=== PATIENT | female | born 1960 | race African-American/Black ===

== ENCOUNTER 2020-06-30 10:39 | Outpatient (REF) | payer MEDICARE, OTHER, SELFPAY ==
--- NOTE | ~2020-06-30 | MM_ITS ---
EXAMINATION: MM SCREENING DIGITAL BREAST TOMOSYNTHESIS, BILATERAL CLINICAL INFORMATION: Screening. Asymptomatic. The lifetime risk of breast cancer based on the Tyrer-Cuzick Model is 11%. COMPARISON: Mammography: 07/02/2018, 04/07/2017 TECHNIQUE: Digital breast tomosynthesis is performed in both the craniocaudal and mediolateral oblique views along with computer-aided detection (CAD). Synthesized 2D images are generated from the tomosynthesis. FINDINGS: There are scattered areas of fibroglandular density (ACR BI-RADS breast composition Category b). There is fine fibronodular parenchymal pattern. No interval mass or architectural abnormality or developing density in either breast. There are scattered bilateral calcifications overall increased since 2019 on both sides. There are new loosely grouped calcifications on the right 2:30 o'clock position mid depth. Patient will be recalled for additional imaging. MM/MM tomosynthesis screening BI IMPRESSION: 1. Right: New loosely grouped calcifications mid upper inner right breast. 2. Left: No mammographic evidence of malignancy. ASSESSMENT: BI-RADS 0: Incomplete - Need Additional Imaging Evaluation RECOMMENDATION: 1. Additional views of the right breast (magnification CC, magnification LM). 2. Radiology department staff will contact the patient for additional imaging. This patient's information was entered into a reminder system with a target due date for their next mammogram.
== END 2020-06-30 10:40 | disposition home or self-care (01) ==
LOC: HO.MAMMO 10:39
PROVIDERS: Visit Provider Family Medicine
DX: Z12.31 Encounter for screening mammogram for malignant neoplasm of breast (principal)
CPT/HCPCS: 77063; 77067

== ENCOUNTER 2020-07-05 09:27 | Outpatient (REF) | payer MEDICARE, OTHER, SELFPAY ==
--- NOTE | ~2020-07-05 | MM_ITS ---
EXAMINATION: MM DIAGNOSTIC DIGITAL MAMMOGRAPHY, RIGHT CLINICAL INFORMATION: Recall from screening for new loosely grouped calcifications right 2:30 o'clock position mid depth. COMPARISON: Mammography: 06/30/2020, 07/02/2018, 04/07/2017 TECHNIQUE: Digital mammography is performed in the following views: Magnification CC x2, magnification LM. FINDINGS: There are scattered areas of fibroglandular density (ACR BI-RADS breast composition Category b). The loosely grouped calcifications mid 2:30 o'clock position are relatively coarse and similar to other grouped coarse calcifications in the bilateral outer quadrants. This most likely represents area fibroadenomatous change. Management plan is for short interval follow-up imaging in 6 months. Results are discussed with the patient at time of visit. MM/MM added views RT IMPRESSION: The loosely grouped calcifications mid inner right breast are probably benign, suspected fibroadenomatous change. ASSESSMENT: BI-RADS 3: Probably Benign RECOMMENDATION: Diagnostic right mammography in 6 months. This patient's information was entered into a reminder system with a target due date for their next mammogram.
== END 2020-07-05 09:28 | disposition home or self-care (01) ==
LOC: HO.MAMMO 09:27
PROVIDERS: Visit Provider Family Medicine
DX: R92.1 Mammographic calcification found on diagnostic imaging of breast (principal)
CPT/HCPCS: 77065

== ENCOUNTER → 2020-10-04 10:06 | Outpatient (BNVA) | payer MEDICARE, OTHER, SELFPAY | PROVIDERS: PCP Family Medicine; Referring Provider Family Medicine; Visit Provider Internal Medicine Cardiovascular Disease | DX: Z01.810 Encounter for preprocedural cardiovascular examination (principal); I11.0 Hypertensive heart disease with heart failure; I50.30 Unspecified diastolic (congestive) heart failure | CPT/HCPCS: 93005; 99212 ==

== ENCOUNTER → 2020-11-02 10:05 | Outpatient (REF) | payer MEDICARE, OTHER, SELFPAY ==
--- NOTE | ~2020-11-02 | NM_ITS ---
Myocardial perfusion study Indication: Preoperative cardiovascular exam to evaluate for myocardial ischemia Technique: The patient was brought in for a Lexiscan perfusion study on 11/02/2020. Patient performed low-level exercise and was injected 0.4 mg of Lexiscan intravenously. Within a minute of injection, 30 mCi of sestamibi was given intravenously. Images were obtained using the SPECT gamma camera interlaced with the gating device. Images were obtained in supine position. Resting perfusion study was performed on 11/03/2020. Patient was administered 30 mCi of sestamibi intravenously at rest. Images were then obtained in supine position. Images obtained with and without CT attenuation. Total DLP 113 mGy-cm. Images were processed with the software and compared side to side in short axis, horizontal long axis and vertical long axis views. Findings: The stress perfusion study showed nonattenuated images show minimal thinning of the inferior wall and mildly reduced uptake in the apex of the LV myocardium. Remainder of the LV myocardium is normally perfused. Attenuation corrected images show mildly reduced uptake in the distal anterior and moderately reduced uptake in the apex of the LV myocardium. Remainder of the LV myocardium normally perfused.. The gated study shows normal LV systolic function with calculated LVEF of 52%. LV cavity is mildly dilated size. The gated study shows normal systolic wall thickening and contraction of segments. Resting study shows nontender images show improved uptake in the apex of the LV myocardium. Attenuation uptake in the distal anterior and apex of the LV myocardium.. Gating at rest reveals normal systolic wall motion with ejection fraction at 59%. The findings are consistent with evidence of apical and distal anterior ischemia in the LAD territory. NM/NM isreal perf SPECT rest & str Impression: 1. Myocardial perfusion imaging study shows distal anterior and apical ischemia 2. Gated LVEF is 52% with stress and 59% with rest 3. Transient ischemic dilatation present EKG is nondiagnostic for ischemia
--- NOTE | 2020-11-02 10:08 | CA_ITS ---
Acquisition Time: 2020-11-02 10:13:54 Total Exercise Time: 00:02:00 Test Indications: PREOP Medications: SEE CHART Protocol: LEXISCAN Max HR: 081 BPM 50% of Pred: 160 BPM Max BP: 158/066 mmHG Max Work Load: 1.0 METS Pharmacological stress test using Lexiscan while sitting and kicking her feet. Pt tolerated well, denies any anginal sx. EKG with occ. PAC's, non-diagnostic for ischemia. Nuclear images to follow. Normotensive response to test. Test reviewed with Dr. Aguilera. Referred By: Georges Aguilera Overread By: Rosy Nair NP
== END ==
LOC: HO.CARD 10:05
PROVIDERS: Visit Provider Internal Medicine Cardiovascular Disease
DX: Z01.810 Encounter for preprocedural cardiovascular examination (principal)
CPT/HCPCS: 78452; 93017; A9500; J0280; J2785

== ENCOUNTER → 2020-11-09 12:47 | Outpatient (BNVA) | payer MEDICARE, OTHER, SELFPAY | PROVIDERS: PCP Family Medicine; Visit Provider Internal Medicine Cardiovascular Disease | DX: Z01.810 Encounter for preprocedural cardiovascular examination (principal); I50.30 Unspecified diastolic (congestive) heart failure | CPT/HCPCS: Q3014 ==

== ENCOUNTER 2020-11-23 10:47 | Outpatient (REF) | payer MEDICARE, OTHER, SELFPAY ==
[2020-11-23 11:51] LABS: Hematocrit 29.4 % (37-47); Hemoglobin 8.9 g/dl (12.0-16.0); Mean Corpuscular HGB Conc 30.3 g/dl (31.0-35.0); Mean Corpuscular Hemoglobin 28.7 pg (27.0-33.0); Mean Corpuscular Volume 94.8 fL (80-98); Mean Platelet Volume 10.6 fL (9.4-12.3); Platelet Count 308 X10*3/uL (160-400); Red Cell Distribution Width 15.8 % (11.0-16.0); White Blood Count 9.3 X10*3/uL (4.8-10.8)
[2020-11-23 11:53] LABS: Prothrombin Time 11.3 SEC (9.9-13.0)
[2020-11-23 12:18] LABS: B Type Natriuretic Peptide 327 pg/mL (<100)
[2020-11-23 12:50] LABS: Anion Gap 15 (12-20); Blood Urea Nitrogen 35 mg/dL (9-16); Calcium 8.8 mg/dL (8.4-10.2); Carbon Dioxide 28 mmol/L (22-29); Chloride 103 mmol/L (96-108); Estimated Glomerular Filt Rate 5; Glucose Random 150 mg/dL (60-115); Potassium 3.7 mmol/L (3.3-5.1); Sodium 142 mmol/L (135-145)
== END 2020-11-23 10:48 | disposition home or self-care (01) ==
LOC: HO.LAB 10:47
PROVIDERS: Nurse Practitioner Family; PCP Family Medicine; Visit Provider Internal Medicine Cardiovascular Disease
DX: Z01.810 Encounter for preprocedural cardiovascular examination (principal); I10 Essential (primary) hypertension; I50.30 Unspecified diastolic (congestive) heart failure
CPT/HCPCS: 36415; 80048; 83880; 85027; 85610

== ENCOUNTER → 2020-12-06 10:34 | Outpatient (REF) | payer MEDICARE, OTHER, SELFPAY ==
--- NOTE | 2020-12-06 10:37 | CA_ITS ---
Transthoracic Echocardiogram Patient (Last, First, Middle): Alix Sharp B Gender: Female Date of : 1960 Age: 60 Procedure Date: 12/06/2020 Procedure Type: Transthoracic Echocardiogram Location: OP Height: 170.18 cm Weight: 80.74 kg BSA: 1.92 m2 Heart Rate: bpm BP: 116 / 60 mmHg Product Marketing Manager: Referring MD: Georges Aguilera MD Symptoms: I50.30 - Unspecified diastolic (congestive) heart failure Study Quality: Good ECG Rhythm: Sinus Conclusions: - The left ventricular systolic function is normal. The calculated ejection fraction is 61% by biplane method. - Evidence suggests grade II (moderate) diastolic dysfunction. - Mildly increased right ventricular cavity size. - The left atrium is moderately dilated. - There is moderate posterior mitral annular calcification. Findings Left Ventricle Normal left ventricular cavity size. There is mildly increased left ventricular wall thickness. The left ventricular systolic function is normal. The calculated ejection fraction is 61% by biplane method. There is no evidence of regional wall motion abnormalities. E/E prime ratio is >15, consistent with elevated filling pressures. Evidence suggests grade II (moderate) diastolic dysfunction. Right Ventricle Mildly increased right ventricular cavity size. There is normal right ventricular systolic function. Atria The left atrium is moderately dilated. The right atrium is normal in size. Aortic Valve There is a normal trileaflet aortic valve. There is no aortic valve stenosis. The mean gradient is 9 mmHg. There is no aortic valve regurgitation. Mitral Valve There is moderate posterior mitral annular calcification. There is trace mitral valve regurgitation. There is no mitral valve stenosis. Pulmonic Valve The pulmonic valve was not well visualized. Tricuspid Valve Normal tricuspid valve structure. There is trace tricuspid valve regurgitation. The pulmonary artery systolic pressure is normal. Great Vessels The aortic annulus, sinuses of valsalva, and asc aorta are normal in size. Venous The inferior vena cava is normal in size and collapses greater than 50% with inspiration. Pericardium/Pleural There is no evidence of pericardial effusion. Prior Study Comparison Changes noted compared to prior study dated: 12/15/2019. RVSP normal. Possible underestimation. Measurements 2D Linear Measurements IVSd: 1.09 0.6-0.9/0.6-1.0 cm LVIDd: 5.34 3.9-5.3/4.2-5.9 cm LVIDd Index: 2.78 2.4-3.2/2.2-3.1 cm/m2 LVIDs: 3.22 2.0-3.6 cm LVPWd: 1.05 0.7-1.1 cm Ao Root: 3.10 2.1-3.5 cm LA Diam: 4.40 2.7-3.8/3.0-4.0 cm LAIDs Index: 2.29 1.5-2.3 cm/m2 LV Mass: 276.89 67-162/88-224 g LV Mass Index: 144.21 43-95/49-115 g/m2 LVOT Diam: 2.00 3.0+(-)1.3 cm 2D Systolic Function EF 4C: 63.70 >55% EF 2C: 58.60 >55% EF BiP: 61.30 >55% Mitral Valve MV VTI: 0.67 MV Pk [place]: 1.52 MV Mn [place]: 0.75 MV Pk Grad: 9.00 MV Mn Grad: 3.00 MV Pk E: 1.36 MV PK A: 1.02 MV Decel Time: 441.00 E/A: 1.30 E'Lateral: 7.94 E'Medial: 6.64 E/E' Med: 20.50 E/E' Lat: 17.10 PHT: 129.00 MVA PHT: 1.71 MVA Continuity: 1.70 Decel [place]: 3.09 Aortic Valve AoV Pk [place]: 2.27 AoV Mn [place]: 1.40 AoV VTI: 0.60 AoV Pk Grad: 21.00 Aov Mn Grad: 9.00 BOB Cont.VTI: 1.88 LVOT LVOT Pk [place]: 1.24 LVOT Mn [place]: 0.84 LVOT VTI: 0.36 LVOT Pk Grad: 6.00 LVOT Mn Grad: 3.00 LVOT Diam: 2.00 LVOT Area: 3.14 Diastolic Function MV Pk E: 1.36 MV Pk A: 1.02 E/A: 1.30 E'Medial: 6.64 E/E' Med: 20.50 E' Laterial: 7.94 E/E' Lat: 17.10 Right Ventricle TAPSE (mm): 29.00 TVS' [place]: 17.00 Tricuspid Valve TR Pk [place]: 2.75 TR Pk Grad: 30.00 Great Vessels Aorta Ao Root-2D: 3.10 2.0-3.7 cm Ao Asc: 2.80 2.1-3.4 cm Pulmonary Valve PV Pk [place]: 1.32 Peak PV Grad: 7.00 Updated in Other Vendor System with Status of Final Cornell Ramirez MD electronically signed on 12/07/2020 1:22:06 PM with status of Final
== END ==
LOC: HO.CARD 10:34
PROVIDERS: Visit Provider Internal Medicine Cardiovascular Disease
DX: I50.30 Unspecified diastolic (congestive) heart failure (principal)
CPT/HCPCS: 93306

== ENCOUNTER → 2020-12-12 15:23 | Outpatient (BNVA) | payer MEDICARE, OTHER, SELFPAY | PROVIDERS: PCP Family Medicine; Visit Provider Nurse Practitioner Family | DX: Z01.810 Encounter for preprocedural cardiovascular examination (principal); I13.2 Hypertensive heart and chronic kidney disease with heart failure and with stage 5 chronic kidney disease, or end stage renal disease; I50.30 Unspecified diastolic (congestive) heart failure; N18.6 End stage renal disease; Z79.899 Other long term (current) drug therapy; Z99.2 Dependence on renal dialysis | CPT/HCPCS: 99212 ==

== ENCOUNTER 2021-01-08 08:46 | Outpatient (REF) | payer MEDICARE, OTHER, SELFPAY ==
--- NOTE | ~2021-01-08 | MM_ITS ---
EXAMINATION: MM DIAGNOSTIC DIGITAL BREAST TOMOSYNTHESIS, RIGHT CLINICAL INFORMATION: Six-month follow-up calcifications The lifetime risk of breast cancer based on the Tyrer-Cuzick Model is 13.4%. COMPARISON: Mammography: July 05, 2020 and studies dating back to February 25, 2012 TECHNIQUE: Digital breast tomosynthesis is performed in both the craniocaudal and mediolateral oblique views along with computer-aided detection (CAD). Synthesized 2D images are generated from the tomosynthesis. Additional spot magnification views of the right breast in craniocaudal and 90 degree mediolateral views performed. FINDINGS: There are scattered areas of fibroglandular density (ACR BI-RADS breast composition Category b). There are no new significant masses, abnormal calcifications, or other abnormalities. There is stability to calcification seen within the superior medial aspect of the right breast. Recommend 6 month bilateral mammography with spot magnification views of the right breast.. Results are provided to the patient at time of visit by the technologist. MM/MM tomosynthesis diagnostic RT IMPRESSION: There are no significant changes from prior study. ASSESSMENT: BI-RADS 3: Probably Benign RECOMMENDATION: Diagnostic mammography in 6 months. This patient's information was entered into a reminder system with a target due date for their next mammogram.
== END 2021-01-08 08:47 | disposition home or self-care (01) ==
LOC: HO.MAMMO 08:46
PROVIDERS: PCP Family Medicine; Visit Provider Family Medicine
DX: R92.1 Mammographic calcification found on diagnostic imaging of breast (principal)
CPT/HCPCS: 77061; 77065

== ENCOUNTER 2021-07-09 12:55 | Outpatient (REF) | payer MEDICARE, OTHER, SELFPAY ==
--- NOTE | ~2021-07-09 | MM_ITS ---
EXAMINATION: MM DIAGNOSTIC DIGITAL BREAST TOMOSYNTHESIS, BILATERAL CLINICAL INFORMATION: Six-month follow up for right breast calcifications. The lifetime risk of breast cancer based on the Tyrer-Cuzick Model is 7.1%. COMPARISON: Mammography: 01/08/2021 and studies dating back to 01/09/2011. TECHNIQUE: Digital breast tomosynthesis is performed in both the craniocaudal and mediolateral oblique views along with computer-aided detection (CAD). Synthesized 2D images are generated from the tomosynthesis. Additional spot compression views in mediolateral oblique projections performed bilaterally. FINDINGS: The breasts are heterogeneously dense, which may obscure small masses (ACR BI-RADS breast composition Category c). There is multiplicity and bilaterality of calcifications again noted. The grouping of calcifications within the superior medial aspect of the right breast appears essentially stable with some of the calcifications becoming coarser and no suspicious linear or branching forms identified. There is a question of a new density about the inferior aspect of the right breast, approximately 5 cm from nipple for which spot compression view was performed which demonstrated this to represent sequela position of fibroglandular tissue. There is also a question of a partially-circumscribed density about the superior aspect of the left breast, approximately 7 cm from nipple for which spot compression view demonstrated this to represent superimposition of fibroglandular tissue with effacement of the lesion. One year follow-up bilateral mammography suggested with magnification views of the right breast. Results are provided to the patient at time of visit by the technologist. MM/MM tomosynthesis diagnostic BI IMPRESSION: There are no significant changes from prior study. ASSESSMENT: BI-RADS 3: Probably benign. RECOMMENDATION: Diagnostic mammography at time of next annual exam, due in 12 months. This patient's information was entered into a reminder system with a target due date for their next mammogram.
== END 2021-07-09 12:56 | disposition home or self-care (01) ==
LOC: HO.MAMMO 12:55
PROVIDERS: PCP Family Medicine; Visit Provider Family Medicine
DX: R92.1 Mammographic calcification found on diagnostic imaging of breast (principal)
CPT/HCPCS: 77062; 77066

== ENCOUNTER → 2021-07-25 13:20 | Outpatient (BNVA) | payer MEDICARE, OTHER, SELFPAY | PROVIDERS: PCP Family Medicine; Referring Provider Family Medicine; Visit Provider Internal Medicine Cardiovascular Disease | DX: I13.2 Hypertensive heart and chronic kidney disease with heart failure and with stage 5 chronic kidney disease, or end stage renal disease (principal); I50.30 Unspecified diastolic (congestive) heart failure; N18.6 End stage renal disease; Z79.899 Other long term (current) drug therapy | CPT/HCPCS: 99212 ==

== ENCOUNTER 2021-11-29 09:26 | Outpatient (REF) | payer MEDICARE, OTHER, SELFPAY ==
--- NOTE | ~2021-11-29 | CT_ITS ---
EXAMINATION: CT HEAD WITHOUT CONTRAST CLINICAL INFORMATION: Dizziness, giddiness COMPARISON: Portions of a previous CT 09/16/18 TECHNIQUE: Multidetector CT examination of the head is performed without contrast. This CT examination was performed using dose optimization techniques as appropriate, variously including the following: *Automated exposure control *Adjustment of mA and/or kV according to patient size (this includes techniques or standardized protocols for targeted exams where dose is matched to indication/reason for exam; i.e. extremities or head) *Use of iterative reconstruction technique DLP: 657 mGy-cm FINDINGS: There is no evidence of a recent intracranial hemorrhage or extra-axial collection. The midline structures are nondisplaced. The ventricles, cisterns, and sulci are within normal limits. There is no evidence of an intra-axial mass. There are no suspicious focal areas of abnormal brain attenuation. The manuel-white interface is within normal limits. There is no evidence of acute territorial infarct. There are arterial calcifications. This is greater than expected for age. The paranasal sinuses and mastoids are within normal limits. Chronic arthritic changes involving the temporomandibular joints partially included. There is cartilage calcification in the ear which is chronic CT/CT head/brain wo con IMPRESSION: 1. There is no evidence of a recent intracranial hemorrhage. 2. No acute infarct. 3. No suspicious interval change
== END 2021-11-29 09:27 | disposition home or self-care (01) ==
LOC: HO.CT 09:26
PROVIDERS: PCP Family Medicine; Visit Provider Family Medicine
DX: R42 Dizziness and giddiness (principal)
CPT/HCPCS: 70450

== ENCOUNTER 2022-01-03 13:26 | Outpatient (REF) | payer MEDICARE, OTHER, SELFPAY | END 2022-01-03 13:27 | disposition home or self-care (01) | LOC: HO.LAB 13:26 | PROVIDERS: PCP Family Medicine; Visit Provider Internal Medicine Nephrology | DX: Z01.818 Encounter for other preprocedural examination (principal) | CPT/HCPCS: 86850; 86900; 86901 ==

== ENCOUNTER → 2022-02-14 13:45 | Outpatient (BNVA) | payer MEDICARE, OTHER, SELFPAY | PROVIDERS: PCP Family Medicine; Referring Provider Family Medicine; Visit Provider Internal Medicine Cardiovascular Disease | DX: I11.0 Hypertensive heart disease with heart failure (principal); I50.30 Unspecified diastolic (congestive) heart failure | CPT/HCPCS: 93005; 99212 ==

== ENCOUNTER → 2022-02-26 10:43 | Outpatient (REF) | payer MEDICARE, OTHER, SELFPAY ==
--- NOTE | 2022-02-26 10:47 | CA_ITS ---
Transthoracic Echocardiogram Patient (Last, First, Middle): Alix Toussaint, Gender: Female Date of : 1960 Age: 61 Procedure Date: 02/26/2022 Procedure Type: Transthoracic Echocardiogram Location: OP Height: 167.64 cm Weight: 83.92 kg BSA: 1.93 m2 Heart Rate: 65 bpm BP: 110 / 64 mmHg Caramel Candy Maker Helper: BRAD Referring MD: Georges Aguilera MD Lead Software Developer: Georges Aguilera MD Symptoms: I50.30 - Unspecified diastolic (congestive) heart failure Study Quality: Adequate ECG Rhythm: Sinus Conclusions: - 1. Normal LV systolic function with impaired relaxation filling pattern next 2. Mildly dilated left atrium 3. Severe mitral calcification with mild mitral regurgitation 4. No gross pericardial effusion Findings Left Ventricle Normal left ventricular size, thickness, and systolic function. The visually estimated ejection fraction is between 60-65%. Spectral Doppler is indicative of an impaired relaxation filling pattern. Elevated left ventricular end diastolic pressure. Peak GLS is -17.1 % which is borderline. Right Ventricle Normal right ventricular cavity size and systolic function. Atria The left atrium is mildly dilated. There is no evidence of interatrial shunt. The right atrium is normal in size. Aortic Valve There is mild calcification of the aortic valve. There is no aortic valve stenosis. There is no aortic valve regurgitation. Mitral Valve There is mild anterior and severe posterior mitral leaflet thickening. There is severe mitral annular calcification. There is mild mitral valve regurgitation. There is no mitral valve stenosis. Pulmonic Valve The pulmonic valve is likely normal. Tricuspid Valve There is trace tricuspid valve regurgitation. Tricuspid regurgitation envelope is inadequate for calculation of right ventricular systolic pressure. Normal right atrial pressure. Great Vessels All visible segments of the aorta are normal in size. The pulmonary artery was not well visualized. Venous The inferior vena cava is normal in size and collapses greater than 50% with inspiration. Pericardium/Pleural There is no evidence of pericardial effusion. Prior Study Comparison Changes noted compared to prior study dated: 12/06/2020. left ventricular hypertrophy has improved. Left atrium size is improved. RV size is improved. Measurements 2D Linear Measurements IVSd: 1.02 0.6-0.9/0.6-1.0 cm LVIDd: 4.78 3.9-5.3/4.2-5.9 cm LVIDd Index: 2.48 2.4-3.2/2.2-3.1 cm/m2 LVIDs: 2.71 2.0-3.6 cm LVPWd: 1.05 0.7-1.1 cm LA Diam: 4.00 2.7-3.8/3.0-4.0 cm LAIDs Index: 2.07 1.5-2.3 cm/m2 LV Mass: 220.69 67-162/88-224 g LV Mass Index: 114.35 43-95/49-115 g/m2 LVOT Diam: 2.00 3.0+(-)1.3 cm 2D Systolic Function EF 4C: 65.50 >55% EF 2C: 58.20 >55% EF BiP: 61.40 >55% Mitral Valve MV VTI: 0.50 MV Pk [place]: 1.47 MV Mn [place]: 0.99 MV Pk Grad: 9.00 MV Mn Grad: 4.00 MV Pk E: 1.32 MV PK A: 1.28 MV Decel Time: 272.00 E/A: 1.00 E'Lateral: 6.31 E'Medial: 4.79 E/E' Med: 27.60 E/E' Lat: 20.90 PHT: 80.00 MVA PHT: 2.75 MVA Continuity: 2.05 Decel [place]: 4.87 Aortic Valve AoV Pk [place]: 1.99 AoV Mn [place]: 1.31 AoV VTI: 0.45 AoV Pk Grad: 16.00 Aov Mn Grad: 8.00 BOB Cont.VTI: 2.29 LVOT LVOT Pk [place]: 1.40 LVOT Mn [place]: 0.96 LVOT VTI: 0.33 LVOT Pk Grad: 8.00 LVOT Mn Grad: 4.00 LVOT Diam: 2.00 LVOT Area: 3.14 Diastolic Function MV Pk E: 1.32 MV Pk A: 1.28 E/A: 1.00 E'Medial: 4.79 E/E' Med: 27.60 E' Laterial: 6.31 E/E' Lat: 20.90 Right Ventricle TAPSE (mm): 19.40 TVS' [place]: 11.20 Tricuspid Valve RA Press: 3.00 Great Vessels Aorta Sinus of Valsalva: 2.50 2.0-3.5 cm Ao Asc: 2.60 2.1-3.4 cm Pulmonary Valve PV Pk [place]: 1.24 Peak PV Grad: 6.00 Updated in Other Vendor System with Status of Final Georges Aguilera MD electronically signed on 02/26/2022 4:44:55 PM with status of Final
== END ==
LOC: HO.CARD 10:43
PROVIDERS: PCP Family Medicine; Visit Provider Nurse Practitioner Family
DX: I50.30 Unspecified diastolic (congestive) heart failure (principal)
CPT/HCPCS: 93306; 93356

== ENCOUNTER 2022-07-11 12:24 | Outpatient (REF) | payer MEDICARE, OTHER, SELFPAY ==
--- NOTE | ~2022-07-11 | MM_ITS ---
EXAMINATION: MM DIAGNOSTIC DIGITAL BREAST TOMOSYNTHESIS, BILATERAL CLINICAL INFORMATION: Due for yearly. Also follow-up probable fibroadenomatous calcifications upper inner right breast. The lifetime risk of breast cancer based on the Tyrer-Cuzick Model is 7%. COMPARISON: Multiple prior mammography, most recent 07/09/2021. TECHNIQUE: Digital breast tomosynthesis is performed in both the craniocaudal and mediolateral oblique views along with computer-aided detection (CAD). Synthesized 2D images are generated from the tomosynthesis. Additional magnification right CC and magnification right ML views are obtained. FINDINGS: There are scattered areas of fibroglandular density (ACR BI-RADS breast composition Category b). Breast tissue composition borders on heterogeneously dense. There is a fibronodular pattern similar to prior studies. No developing density or interval significant mass or architectural abnormality. The axilla and skin contours are unremarkable. The right breast calcifications for follow-up posterior upper inner quadrant are coarse and similar to other loosely grouped coarse calcifications consistent with fibroadenomatous changes. There are similar appearing increased calcifications bilateral calcifications since 2019. No suspicious calcifications. There are also some incidental scattered vascular calcifications. Results are provided to the patient at time of visit by the technologist. MM/MM tomosynthesis diagnostic BI IMPRESSION: No mammographic evidence of malignancy. ASSESSMENT: BI-RADS 2: Benign RECOMMENDATION: Routine annual mammography screening. This patient's information was entered into a reminder system with a target due date for their next mammogram.
== END 2022-07-11 12:25 | disposition home or self-care (01) ==
LOC: HO.MAMMO 12:24
PROVIDERS: PCP Family Medicine; Visit Provider Family Medicine
DX: R92.1 Mammographic calcification found on diagnostic imaging of breast (principal)
CPT/HCPCS: 77062; 77066

== ENCOUNTER → 2022-08-08 12:54 | Outpatient (BNVA) | payer MEDICARE, OTHER, SELFPAY | PROVIDERS: PCP Family Medicine; Referring Provider Family Medicine; Visit Provider Internal Medicine Cardiovascular Disease | DX: I50.30 Unspecified diastolic (congestive) heart failure (principal); I34.81 Nonrheumatic mitral (valve) annulus calcification | CPT/HCPCS: 99212 ==

== ENCOUNTER 2023-07-17 09:58 | Outpatient (REF) | payer MEDICARE, OTHER, SELFPAY ==
--- NOTE | ~2023-07-17 | MM_ITS ---
EXAMINATION: MM SCREENING DIGITAL BREAST TOMOSYNTHESIS, BILATERAL CLINICAL INFORMATION: Screening. Asymptomatic. COMPARISON: Mammography: This study is compared with prior exams dating back to TECHNIQUE: Digital breast tomosynthesis is performed in both the craniocaudal and mediolateral oblique views along with computer-aided detection (CAD). Synthesized 2D images are generated from the tomosynthesis. FINDINGS: The breasts are heterogeneously dense, which may obscure small masses (ACR BI-RADS breast composition Category c). There are no significant masses, abnormal calcifications, or other abnormalities. There are bilateral, coarse benign calcifications. MM/MM tomosynthesis screening BI IMPRESSION: No mammographic evidence of malignancy. ASSESSMENT: BI-RADS BI-RADS 2 - Benign Findings RECOMMENDATION: Routine annual mammography screening. 1 year F/U This examination should not preclude the clinical evaluation of a suspicious palpable abnormality. This patient's information was entered into a reminder system with a target due date for their next mammogram.
== END 2023-07-17 09:59 | disposition home or self-care (01) ==
LOC: HO.MAMMO 09:58
PROVIDERS: PCP Family Medicine; Visit Provider Family Medicine
DX: Z12.31 Encounter for screening mammogram for malignant neoplasm of breast (principal)
CPT/HCPCS: 77063; 77067

== ENCOUNTER → 2023-07-17 10:00 | Outpatient (BNV) | payer MEDICARE, OTHER, SELFPAY | PROVIDERS: PCP Family Medicine; Visit Provider Radiology Diagnostic Radiology | DX: Z12.31 Encounter for screening mammogram for malignant neoplasm of breast (principal) | CPT/HCPCS: 77063; 77067 ==

== ENCOUNTER 2023-12-31 10:32 | Outpatient (AMB) | payer MEDICARE, OTHER, SELFPAY ==
--- NOTE | 2023-12-31 10:39 | A.OFFVIS_ITS ---
Vital Signs 12/31/23 10:41 Height 5 ft 7 in Weight 125 lb 10.616 oz BMI 19.7 BP 146/88 H Blood Pressure Location Rt brachial Position Sitting Pulse 61 Intake Visit Reasons: overdue fu/Preop Dr. Neumann/ skin graft surgery Intake Note: Pre-op for skin graft surgery with ekg Garment Folder Required: No Allergies codeine [CODEINE] Allergy (Intermediate, Verified 08/08/22 13:09) HIVES oxycodone [OXYCODONE] Allergy (Intermediate, Verified 08/08/22 13:09) HIVES Codeine Allergy (Unknown, Uncoded 01/16/21 16:57) hives and pruritus Medication List - Last Reconciled 12/31/23 by Georges Aguilera MD amlodipine 10 mg PO DAILY amlodipine 2.5 mg PO DAILY dorzolamide-timolol 22.3-6.8 mg/mL 1 drp ophthalmic (eye) BID epoetin natali (Procrit) 40,000 units IV ergocalciferol (vitamin D2) 1,250 mcg PO tacrolimus XR (Envarsus XR) mg PO HPI Comments Details: Alix comes for follow-up. She said she is scheduled to undergo surgery for possibly AV fistula placement due to worsening renal failure. She said last year in February she was admitted for unclear reason and was prolonged hospitalization subsequently leading to G-tube placement and sniff placement. She said she had continues to lose weight but she is currently off G-tube. She is eating better. She has no cardiac symptoms at this point time. Denies any exertional chest pain or shortness of breath. Blood pressure is slightly elevated. She is currently on 12.5 mg of amlodipine which is an unusual dose. She denies any heart failure symptoms. [facility] Medical History End stage renal disease (HFpEF) heart failure with preserved ejection fraction HTN (hypertension) Surgical History Kidney transplant status History of appendectomy H/O cardiac catheterization Family History Father No problems noted. Mother CHF (congestive heart failure) Social History Alcohol intake: never Patient Tobacco Use Status: Never used Tobacco Review of Systems Const Denies chills, Denies fatigue, Denies fever(s), Denies frequent falls, Denies weakness, Denies weight gain and Denies weight loss ENT Denies dizziness Card Denies chest pain, Denies leg edema, Denies lightheadedness, Denies palpitations, Denies dyspnea, Denies dyspnea on exertion, Denies orthopnea and Denies other (loss of consciousness) Resp Denies cough, Denies dyspnea and Denies dyspnea on exertion GI Denies hematochezia and Denies change in stool character Musc Denies abnormal gait, Denies muscle weakness, Denies numbness, Denies radiating pain into limb and Denies tingling Neuro Denies abnormal gait, Denies dizziness, Denies frequent falls, Denies numbness, Denies tingling and Denies weakness Endo Denies fatigue and Denies palpitations Physical Exam Vital Signs: Last Vital Signs Pulse 61 12/31/23 10:41 BP 146/88 H 12/31/23 10:41 BMI result Body Mass Index 19.7 Const General: cooperative, comfortable, no acute distress, alert, awake and ill appearing Nutritional Appearance: thin and other (Frail appearing) Orientation/consciousness: patient oriented x3 Limitations: no limitations Neck Neck: Yes trachea midline, Yes supple and Yes no JVD Resp Effort & Inspection: normal respiratory effort Auscultation: clear to auscultation bilaterally Cardio Jugular venous distension: no JVD Palpation: normal PMI Rate: regular rate Rhythm: regular rhythm Heart sounds: S1 normal heart sound present, S2 normal heart sound present and Other heart sounds present (S4 present) GI Auscultation: normal bowel sounds Skin General skin exam: no rashes or lesions noted Neuro General: patient oriented x3 and no focal motor deficits Extrem General: Yes no clubbing, cyanosis or edema Psych Appearance: grossly normal Office Procedures EKG Details: EKG shows normal sinus rhythm with septal infarct pattern. [id number], Complete Assessment & Plan Assessment & Plan (1) Preoperative cardiovascular examination: Code(s): Z01.810 - Encounter for preprocedural cardiovascular examination Category: Medical Plan: Preoperative cardiovascular risk stratification this middle-aged woman with multiple comorbidities including advancing renal dysfunction to undergo most likely what appears to be AV fistula placement. She is not sure about it. However this is low to intermediate risk surgery. She was normal coronary arteries by angiogram 3 years ago. No current concerning symptoms of angina or heart failure. Clinically appears to be well optimized to undergo this procedure with low to intermediate risk for perioperative cardiovascular morbidity mortality. (2) (HFpEF) heart failure with preserved ejection fraction: Code(s): I50.30 - Unspecified diastolic (congestive) heart failure Category: Medical Plan: Prior history of heart failure preserved ejection fraction secondary to uncontrolled blood pressure hypertensive heart disease. Clinically currently appears to be euvolemic and well compensated has done well since renal transplant then dialysis treatment. Progressing towards dialysis again. Clinically has no signs of heart failure. Does not require any diuretic regimen at this point time. Signs and symptoms of heart failure were discussed with her again. (3) HTN (hypertension): Code(s): I10 - Essential (primary) hypertension Category: Medical Plan: Hypertension that seems to be now getting not well controlled. Currently on amlodipine 12.5 mg daily. I would consider switching her amlodipine to 10 mg and starting hydralazine 25 mg b.i.d.. She has been closely followed by Nephrology regarding her renal status. Patient will discuss with Nephrology for further blood pressure management. Low-salt diet was discussed. Stress mitigation strategies were discussed. Will follow up in the clinic in 1 year's time, sooner p.r.n.. Thank you for allowing me to partake in her care Coding Level of Care Code Est Pt Level 4 (31715) Diagnoses Preoperative cardiovascular examination Z01.810 (HFpEF) heart failure with preserved ejection fraction I50.30 HTN (hypertension) I10 CPT Codes EKG - CPT: 26971-[id number], Complete ([id number])
[2023-12-31 10:41] VITALS: BP 146/88; PULSE 61; BMI 19.7
== END 2023-12-31 11:05 | disposition home or self-care (01) ==
PROVIDERS: PCP Family Medicine; Visit Provider Internal Medicine Cardiovascular Disease
DX: I11.0 Hypertensive heart disease with heart failure (principal); I50.30 Unspecified diastolic (congestive) heart failure; Z01.810 Encounter for preprocedural cardiovascular examination; R94.31 Abnormal electrocardiogram [ECG] [EKG]
CPT/HCPCS: 93010; 99214

== ENCOUNTER → 2023-12-31 10:32 | Outpatient (BNVA) | payer MEDICARE, OTHER, SELFPAY | PROVIDERS: PCP Family Medicine; Visit Provider Internal Medicine Cardiovascular Disease | DX: Z01.810 Encounter for preprocedural cardiovascular examination (principal); I11.0 Hypertensive heart disease with heart failure; I50.30 Unspecified diastolic (congestive) heart failure | CPT/HCPCS: 93005; 99212 ==

== ENCOUNTER 2024-04-07 07:58 | Inpatient (IN) | payer MEDICARE, OTHER, SELFPAY ==
[2024-04-07] VITALS (9 sets, daily range): BP systolic 113–165; BP diastolic 51–69; PULSE 58–68; RESP 15–20; TEMP 36–37; O2SAT 98–99; BMI 26.1; BMI 19.4
--- NOTE | ~2024-04-07 | CT_ITS ---
EXAMINATION: CT CHEST WITHOUT CONTRAST CLINICAL INFORMATION: Difficulty breathing. Pleural effusion evaluation. COMPARISON: Radiograph same date TECHNIQUE: Multidetector volumetric CT imaging of the chest was done. Axial MIP volume rendering provided. Sagittal and coronal reformatted images were obtained. This CT examination was performed using dose optimization techniques as appropriate, variously including the following: *Automated exposure control *Adjustment of mA and/or kV according to patient size (this includes techniques or standardized protocols for targeted exams where dose is matched to indication/reason for exam; i.e. extremities or head) *Use of iterative reconstruction technique DLP: 215 mGy-cm FINDINGS: DIRECTOR OF NEUROLOGY: Right lung volume loss with consolidation LUNGS: Abnormal. There is an extensive consolidative process in the right mid and right lower lung with some underlying nodular components. Soft tissue density is confluent with the right hilum and a mass, creating mass effect on the right lower lobe bronchus or areas of mucoid impaction are not excluded. There is a moderate to large right pleural effusion with lenticular configuration with subpleural density as well extending along the anterior right chest. The right apex is grossly clear. The left lung demonstrates a small left basilar effusion with small areas of nodular opacity. MEDIASTINUM: Study done without IV contrast. Moderate cardiomegaly with a small pericardial effusion. Subcentimeter pre-tracheal and retrocaval nodes noted. Galliano of soft tissue seen in the subcarinal and right hilar space could reflect confluent adenopathy or mass. CORONARY ARTERY CALCIFICATION: Moderate PLEURA: See above. Loculated lenticular right pleural effusion considered moderate to large. AXILLA: No significant adenopathy. There is a port seen overlying the right pectoralis musculature. UPPER ABDOMEN: Extensive vascular calcification noted OSSEOUS STRUCTURES: There is degenerative change in the lower cervical spine. No fracture or destructive process. Sternum intact. CT/CT chest wo IV con IMPRESSION: Stents of consolidative process in the right lung with at least moderate if not larger and pleural effusion. Neoplastic process related to the right hilum and right lower lung not excluded. Correlation with thoracentesis and/or bronchoscopy would be advised. Fleischner guidelines were followed. Electronically signed by: Wing Redman MD 04/07/2024 04:07 PM [facility]
--- NOTE | ~2024-04-07 | US_ITS ---
EXAMINATION: US RETROPERITONEAL LIMITED (RENAL ONLY) CLINICAL INFORMATION: Acute renal insufficiency.. COMPARISON: None available. TECHNIQUE: Real-time sonographic evaluation FINDINGS: RIGHT KIDNEY: 7.5 x 3.6 x 4.7 cm (SAG x AP x TRV). The right kidney demonstrates cortical thinning and increased echotexture without hydronephrosis or calcification. Several cysts are seen in the largest upper pole at 16 x 11 x 14 mm. LEFT KIDNEY: The transplanted kidney measures 8.2 x 4.6 x 4.6 cm (SAG x AP x TRV). Focal thinning and increased echotexture noted without calcification or hydronephrosis. Several cysts are observed largest lower pole at 23 x 19 x 20 mm. US/US renal BI IMPRESSION: No suspicious mass or hydronephrosis.. Electronically signed by: Wing Redman MD 04/08/2024 10:06 AM [facility]
--- NOTE | ~2024-04-07 | US_ITS ---
PROCEDURE: Ultrasound-guided chest tube placement HISTORY: Right loculated pleural effusion SPECIMEN: A specimen was appropriately labeled and sent to the laboratory as requested ACCESS: 5 fr Yueh needle/catheter MEDICATIONS: 10 mL 1% lidocaine TECHNIQUE/FINDINGS Appropriate preprocedural clinical history and imaging studies were reviewed. The patient was brought to the department and placed in the left lateral decubitus position. Ultrasound images of the right thorax were obtained to localize a large loculated pleural effusion. Permanent ultrasound images were saved. The risks and benefits and possible complications were discussed with the patient and consent form was signed. An area of the patient's right back was prepped and draped in the usual sterile fashion. 10 mL of 1% lidocaine was used to obtain local anesthesia of the skin and deeper tissues. A 25 gauge hypodermic needle was introduced to sample pleural fluid and demonstrate a safe access route. A 5 Swedish Yueh catheter was then used to access the pleural cavity. A 0.035 guidewire was then placed through the catheter and into the pleural space. The access site was then dilated. A 12 fr locking catheter was then advanced over the wire and into the right pleural space. The wire was removed and the catheter was secured to the skin with a single suture and a sterile dressing was applied over the site. The catheter was then connected to a close chest drainage system. The patient tolerated the procedure well. There were no immediate complications US/US drain thoracentesis Impression: Ultrasound-guided right chest tube placement yielding yellow fluid. This procedures performed by Jerod Lopez PA-C and supervised by Dr. Green. Electronically signed by: Nelson Green MD 04/12/2024 05:24 PM [facility]
--- NOTE | ~2024-04-07 | XR_ITS ---
EXAMINATION: XR CHEST CLINICAL INFORMATION: f/up right pl effusion COMPARISON: 04/07/2024 TECHNIQUE: Frontal view of the chest was obtained. FINDINGS: Decreasing right pleural effusion with a new pleural drainage catheter, likely with intrapleural air adjacent to the catheter tip. Persistent airspace opacities and possible fissural fluid in the right midlung. Stable cardiac silhouette. XR/XR chest 1V IMPRESSION: Decreasing right pleural effusion with a new pleural drainage catheter in place. Intrapleural air or re-expanded lung in the right lower lobe adjacent to the drainage catheter. Persistent airspace opacities and possible fissural fluid in the right midlung. Electronically signed by: Otilio Mckeon MD 04/10/2024 10:33 AM [facility]
--- NOTE | ~2024-04-07 | XR_ITS ---
EXAMINATION: XR CHEST CLINICAL INFORMATION: Port placement confirmation. COMPARISON: 01/14/2019 chest. TECHNIQUE: Frontal view of the chest was obtained. FINDINGS: Evaluation of the cardiomediastinal silhouette is limited due to patient rotation and lung parenchymal process. Multiple leads overlie the thorax with electronic device overlying left hemithorax. There is no gross pneumothorax. Right IJ line tip projects at the cavoatrial junction. Bilateral diffuse interstitial and airspace opacities with consolidative components in the [id number] right lung and possibly in the retrocardiac region, right greater than left. Ollzh-mc-[id number] right pleural effusion. XR/XR chest 1V IMPRESSION: Right IJ line tip projects at the cavoatrial junction. There is no gross pneumothorax. Bilateral diffuse interstitial and airspace opacities with consolidative components in the yfy-mn-hihzz right lung and possibly in the retrocardiac region, right greater than left. Lycqy-[id number] right pleural effusion. This study was presented today to April 07, 2024 for interpretation. Stat results provided at this time as requested by referring provider. Electronically signed by: Priscilla Urbina MD 04/07/2024 09:10 AM [facility]
--- NOTE | ~2024-04-07 | XR_ITS ---
EXAMINATION: XR CHEST CLINICAL INFORMATION: f/u chest tube removal COMPARISON: Chest radiograph 04/09/2024 TECHNIQUE: AP view of the chest was obtained. FINDINGS: Interval removal of right basilar pigtail catheter. No pneumothorax. Right chest port catheter with tip overlying the cavoatrial junction, as before. The lungs are adequately expanded. Right midlung patchy opacities, as before. Small right pleural effusion. No overt pulmonary edema. The enlarged cardiomediastinal silhouette is within normal limits for technique and unchanged. Aortic arch calcifications again seen. No acute osseous abnormality. XR/XR chest 1V IMPRESSION: 1. Interval removal of right basilar pigtail catheter. No pneumothorax. Small residual right pleural effusion. 2. Right midlung patchy opacities, as before. Electronically signed by: Dulce Corcoran DO 04/12/2024 07:42 PM [facility]
--- NOTE | 2024-04-07 08:04 | ED.GENADULT ---
HPI - General Adult General Chief complaint: Recheck/Abnormal Lab/Rx Stated complaint: ABN LABS FROM SNF,O2 SAT 92% RA PER EMS Time Seen by Provider: 04/07/24 08:04 Source: patient and EMS Mode of arrival: EMS Limitations: no limitations History of Present Illness ED Provider: Ivania Davis PA-C HPI narrative: Patient is a 63 year old assigned female at with a history of ESRD secondary to HTN/DM and status post DDKT (02/2022) on immunosuppression with mycophenolate, tacrolimus, and prednisone, CKD stage B of allograft, chronic + persistent T-cell rejection, HTN, DM, anemia of chronic disease, history of ESBL klebsiella pneumonia, history of carcinoid of appendix s/p resection, anxiety, depression, GERD, HFpEF, and recent left femoral neck fracture status post hip pinning on 02/11/2024, presenting to the emergency department today from SNF for abnormal labs . Patient states that she was told by her SNF staff that her hemoglobin was low so they sent her into the ER. Patient denies any dizziness, lightheadedness, abdominal pain, nausea, vomiting, fever, chills, blurry vision, double vision, loss of vision, chest pain, difficulty breathing, shortness of breath, back pain, night sweats, pain with urination, increased urinary frequency, increased urinary urgency, blood in her urine or stool, syncope or a near syncopal episode, recent trauma or falls, bowel incontinence, bladder incontinence, or any other complaints at this time. Relieving factors: none Exacerbating factors: none Associated symptoms: denies other symptoms Treatments prior to arrival: none Related Data Home Medications ?Medication ?Instructions ?Recorded ?Confirmed epoetin natali 40,000 unit/mL 40,000 unit IV MO 12/31/23 04/07/24 injection solution (Procrit) acetaminophen 325 mg tablet 650 mg PO Q4H PRN Mild Pain (Scale 04/07/24 04/07/24 Score 1-4) acetaminophen 325 mg tablet 650 mg PO Q6H PRN Fever 04/07/24 04/07/24 bisacodyl 10 mg rectal suppository 10 mg CO DAILY PRN no result from 04/07/24 04/07/24 (Dulcolax (bisacodyl)) MOM by next shift carvedilol 25 mg tablet 25 mg PO BID 04/07/24 04/07/24 dextrose 40 % oral gel 20 g PO Q15M PRN BG less than 70 04/07/24 04/07/24 diphenhydramine HCl 25 mg tablet 25 mg PO BID PRN itchiness 04/07/24 04/07/24 docusate sodium 100 mg capsule 100 mg PO DAILY PRN Constipation 04/07/24 04/07/24 glucagon 1 mg injection kit 1 mg IM DAILY PRN BG less than 70 04/07/24 04/07/24 hydromorphone 4 mg tablet 4 mg PO Q4H PRN moderate to severe 04/07/24 04/07/24 pain insulin lispro 200 unit/mL (3 mL) 1 sliding scale dose subcut 04/07/24 04/07/24 subcutaneous pen USEASDIRECTD isosorbide mononitrate 30 mg 30 mg PO DAILY 04/07/24 04/07/24 tablet,extended release 24 hr magnesium hydroxide 400 mg/5 mL 30 ml PO DAILY PRN no BM in 3 days 04/07/24 04/07/24 oral suspension (Milk of [employer]) mycophenolate sodium 360 mg 360 mg PO BID 04/07/24 04/07/24 tablet,delayed release ondansetron HCl 4 mg tablet 4 mg PO Q8H PRN Nausea And Vomiting 04/07/24 04/07/24 pantoprazole 40 mg tablet,delayed 40 mg PO DAILY@0630 04/07/24 04/07/24 release prednisone 2.5 mg tablet 7.5 mg PO DAILY 04/07/24 04/07/24 sertraline 25 mg tablet 25 mg PO DAILY 04/07/24 04/07/24 sodium bicarbonate 650 mg tablet 1,300 mg PO BID 04/07/24 04/07/24 sodium phosphates 19 gram-7 118 ml CO DAILY PRN if no result 04/07/24 04/07/24 gram/118 mL enema (Fleet Enema) from dulcolax within 2 hours sucralfate 1 gram tablet 1 g PO QIDACHS 04/07/24 04/07/24 tacrolimus 5 mg capsule,extended 10 mg PO DAILY 04/07/24 04/07/24 release 24 hr vitamin B complex-vitamin C-folic 1 tab PO DAILY 04/07/24 04/07/24 acid 0.8 mg tablet (Nephro Vitamins) Previous Rx's ?Medication ?Instructions ?Recorded amlodipine 10 mg tablet 10 mg PO DAILY #30 tabs 08/08/22 Allergies Allergy/AdvReac Type Severity Reaction Status Date / Time codeine [CODEINE] Allergy Intermediate HIVES Verified 04/07/24 08:15 oxycodone [OXYCODONE] Allergy Intermediate HIVES Verified 04/07/24 08:15 Codeine Allergy Unknown hives and Uncoded 04/07/24 08:15 pruritus Review of Systems Constitutional: Constitutional: Reports no additional constitutional complaints, Denies chills, Denies fever(s) and Denies night sweats Eyes: Eyes: Reports no additional eye complaints, Denies blurry vision, Denies change in vision, Denies diplopia, Denies eye discharge, Denies loss of vision and Denies eye pain ENT: Denies dizziness Cardiovascular: Cardiovascular: Reports no additional cardiovascular complaints, Denies chest pain, Denies lightheadedness, Denies Loss of Consciousness and Denies dyspnea Respiratory: Respiratory: Reports no additional respiratory complaints and Denies dyspnea Gastrointestinal: Gastrointestinal: Reports no additional gastrointestinal complaints, Denies abdominal pain, Denies melena, Denies hematochezia, Denies change in bowel habits and Denies change in stool character Genitourinary: Genitourinary: Denies hematuria, Denies urinary frequency, Denies dysuria, Denies urinary incontinence, Denies urinary hesitancy and Denies urinary urgency Musculoskeletal: Musculoskeletal: Reports no additional musculoskeletal complaints, Denies numbness and Denies tingling Neurologic: Denies dizziness, Denies loss of vision, Denies numbness and Denies tingling Psychiatric: Psychiatric: Reports no additional psychiatric complaints Endocrine: Endocrine: Reports no additional endocrine complaints Hematologic/Lymphatic: Hematologic/Lymphatic: Reports no additional hematologic/lymphatic complaints Allergic/Immunologic: Allergic/Immunologic: Reports no additional allergic/immunologic complaints [facility] Past Medical History Attestation statement: The following information was validated with the patient. 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 Mother CHF (congestive heart failure) Social History Social History Alcohol intake: never Patient Tobacco Use Status: Never used Tobacco Advance Directives: No Advance Directives Information Provided: Yes Do you have a plan to hurt others: No Plan Physical Exam ED Vital Signs: Vital Signs - 24 hr 04/07/24 08:13 04/07/24 10:44 04/07/24 11:01 Temperature 98.6 F 97.6 F 98.6 F Pulse Rate 62 64 58 Respiratory Rate 16 15 18 Blood Pressure 130/51 L 125/57 L 113/57 L Pulse Oximetry 99 Oxygen Delivery Method Room Air 04/07/24 11:01 04/07/24 13:40 04/07/24 13:41 Temperature 98.6 F 96.8 F Pulse Rate 58 63 Respiratory Rate 18 16 16 Blood Pressure 113/57 L 127/62 Pulse Oximetry Oxygen Delivery Method 04/07/24 13:45 Temperature 96.8 F Pulse Rate 63 Respiratory Rate 16 Blood Pressure 127/62 Pulse Oximetry Oxygen Delivery Method BMI result Body Mass Index 26.1 Const General: cooperative, no acute distress, alert and awake Nutritional Appearance: well nourished Orientation/consciousness: patient oriented x3 Limitations: no limitations [facility] Head: Yes normal to inspection and Yes atraumatic Ears: hearing grossly normal bilaterally and external ears normal General nose exam: Normal external nose present, no nasal discharge noted and no epistaxis Face and sinus: Yes normal facial exam, No abrasion and No laceration Mouth: Normal oral and palatal mucosa present, no drooling and no muffled voice Eyes General: appearance normal, both eyes and all related structures Periorbital: periorbital findings normal Eyelids: Yes eyelids normal Conjunctivae: conjunctivae normal Pupils: Equal, round and reactive pupils present EOM: EOMs intact bilaterally Neck Neck: Yes normal visual inspection, Yes full ROM and Yes no lymphadenopathy Chest Other: port present in right chest Resp Effort & Inspection: normal respiratory effort and able to speak in complete sentences GI Inspection: Yes normal to inspection Neuro General: patient oriented x3 and moves all extremities Cranial nerves: Yes Equal, round and reactive pupils present Cognition (Neuro): normal cognition Extrem General: Yes normal to inspection, Yes full ROM and Yes capillary refill normal Psych Appearance: grossly normal Mental Status: mental status grossly normal Affect: normal affect Attitude: cooperative Thought process: Normal thought process present Thought content: Normal thought content present Insight: Good insight present (Psych) Medications Administered Discontinued Medications Generic Name Dose Route Start Last Admin Trade Name Freq PRN Reason Stop Dose Admin Hydromorphone HCl 1 mg 04/07/24 13:29 04/07/24 13:41 Hydromorphone Hcl 1 Mg/Ml Syringe IVPUSH 04/07/24 13:30 1 mg ONCE ONE Administration Protocol Medical Decision Making Medical Decision Making MDM Narrative: Patient is a 63 year old assigned female at with a history of ESRD secondary to HTN/DM and status post DDKT (02/2022) on immunosuppression with mycophenolate, tacrolimus, and prednisone, CKD stage B of allograft, chronic + persistent T-cell rejection, HTN, DM, anemia of chronic disease, history of ESBL klebsiella pneumonia, history of carcinoid of appendix s/p resection, anxiety, depression, GERD, HFpEF, and recent left femoral neck fracture status post hip pinning on 02/11/2024, presenting to the emergency department today from [facility] for abnormal labs . Patient's physical exam was as noted in the physical exam portion of this note. Patient's blood work showed a HGB of 6.4 with a hct of 22.0, as well as a CR of 4.46 with a BUN of 60. Patient's CR + BUN are chronically elevated and these values are consistent with patient's recent labs from [facility]. Patient's anemia is acute on chronic. Patient's chest x-ray showed good IJ line placement as well as bilateral diffuse interstitial and airspace opacities with consolodiative components in the [id number] right lung and possibly in the retrocardiac region right greater than left. This appears new / worse since her last chest x-ray at [facility]. I consulted my attending physician, Dr. Guajardo, on this case. He recommended transfusing the patient with 1 unit of PRBCs and getting a dry CT of the chest. Patient's CT is pending at this time. Patient received a unit of blood without incident. I explained my physical exam findings as well as all test results to the patient. I answered all questions asked by the patient. Patient's disposition will be determined after CT is read. Patient signed out to lulu CRUZ. Differential Diagnosis Differential Diagnoses: The differential diagnosis associated with the presentation includes Acute on chronic anemia Admission/Observation Consideration of admission/observation: Escalation of care including admission/observation considered Patient's disposition will be determined after CT is read. Lab Data [facility] Lab Attestation statement: I reviewed the patient's lab results. My interpretation of these results are in the [facility] Rationale portion of this note. 04/07/24 08:38 04/07/24 08:38 Labs: Lab Results 04/07/24 04/07/24 Range/Units 08:38 09:02 WBC 9.7 (4.8-10.8) X10*3/uL RBC 2.31 L (4.20-5.50) X10*6/uL Hgb 6.4 L* (12.0-16.0) g/dl Hct 22.0 L (37.0-47.0) % MCV 95.2 (80.0-98.0) fL MCH 27.7 (27.0-33.0) pg MCHC 29.1 L (31.0-35.0) g/dl RDW 16.7 H (11.0-16.0) % Plt Count 251 D (160-400) X10*3/uL MPV 9.5 (9.4-12.3) fL Immature Gran % (Auto) Cancelled Neut % (Auto) Cancelled Lymph % (Auto) Cancelled [place] % (Auto) Cancelled Eos % (Auto) Cancelled Baso % (Auto) Cancelled Lymph # (Auto) Cancelled [place] # (Auto) Cancelled Eos # (Auto) Cancelled Baso # (Auto) Cancelled Abs Immat Gran (auto) Cancelled Absolute Neuts (auto) Cancelled Absolute Nucleated RBC 0.000 (0.0-0.012) X10*3/uL Nucleated RBC % (auto) 0.0 (0.0-0.2) /100WBC Neutrophils % (Manual) 81 H (45-73) % Band Neutrophils % 7 H (3-5) % Lymphocytes % (Manual) 4 L (20-40) % Monocytes % (Manual) 7 (2-11) % Basophils % (Manual) 1 (0-2) % Abs Neuts (Manual) 8.5 H (2.0-8.3) X10*3/uL Lymphocytes # (Manual) 0.4 L (1.2-4.9) X10*3/uL Monocytes # (Manual) 0.7 (0.1-1.2) X10*3/uL Basophils # (Manual) 0.1 (0.0-0.2) X10*3/uL Platelet Estimate NORMAL (NORMAL) Plt Morphology Comment NORMAL RBC Morphology NOTED Polychromasia 1+ (0-2) /OIF Hypochromasia 1+ (5-14) /OIF Schistocytes 1+ (0-2) /OIF PT 13.8 H (10.9-12.4) SEC INR 1.2 H (0.9-1.1) APTT 35.9 (26.0-36.8) SEC Sodium 138 (135-145) mmol/L Potassium 4.5 (3.3-5.1) mmol/L Chloride 108 (96-108) mmol/L Carbon Dioxide 21 L (22-29) mmol/L Anion Gap 14 (12-20) BUN 60 H (9-16) mg/dL Creatinine 4.46 H* (0.5-1.4) mg/dL Estim Creat Clear Calc 13.2 Estimated GFR 10 Random Glucose 103 (60-115) mg/dL Calcium 8.3 L (8.4-10.2) mg/dL Total Bilirubin 0.3 (0.0-1.0) mg/dL AST 16 (5-31) U/L ALT < 6 (0-31) U/L Alkaline Phosphatase 53 (39-117) U/L Total Protein 5.6 L (6.5-8.0) g/dL Albumin 2.4 L (3.5-5.0) g/dL Blood Type A Positive Antibody Screen NEGATIVE Crossmatch See Detail Independent Interpretation I performed an independent interpretation of an: Plain X-Ray Interpretation: My interpretation is in agreement with the radiologist's impression of this imaging study. EXAMINATION: XR CHEST CLINICAL INFORMATION: Port placement confirmation. COMPARISON: 01/14/2019 chest. TECHNIQUE: Frontal view of the chest was obtained. FINDINGS: Evaluation of the cardiomediastinal silhouette is limited due to patient rotation and lung parenchymal process. Multiple leads overlie the thorax with electronic device overlying left hemithorax. There is no gross pneumothorax. Right IJ line tip projects at the cavoatrial junction. Bilateral diffuse interstitial and airspace opacities with consolidative components in the [id number] right lung and possibly in the retrocardiac region, right greater than left. [id number] right pleural effusion. XR/XR chest 1V IMPRESSION: Right IJ line tip projects at the cavoatrial junction. There is no gross pneumothorax. Bilateral diffuse interstitial and airspace opacities with consolidative components in the vkf-ic-agvew right lung and possibly in the retrocardiac region, right greater than left. [id number]-ch-mcxfbwyk right pleural effusion. This study was presented today to April 07, 2024 for interpretation. Stat results provided at this time as requested by referring provider. Electronically signed by: Priscilla Urbina MD 04/07/2024 09:10 AM [facility] [place] Dictated By: Priscilla Urbina MD Signed By: Electronically signed by Priscilla Urbina MD 04/07/24 0910 Radiology Impression Discussion of test interpretation with radiology: I have reviewed the radiologist's reading. Independent Historian Clinical information obtained from an independent historian. History obtained from or confirmed by: EMS (EMS provided additional history and confirmed the history provided by the patient.) Chronic Conditions Patient?s care impacted by: Diabetes and Hypertension Critical Care Time Critical Care Time Critical Care Time: Yes Total Critical Care Time: 38 Attestation: I spent 38 minutes of Critical Care Time with this patient. This does not include time spent on separately reported billable procedures. Discharge Plan Discharge Clinical Impression: Anemia Patient Disposition: Still a Patient Prescriptions: No Action carvedilol 25 mg Tablet 25 mg PO BID Rx Instructions: must administer with a meal/food acetaminophen 325 mg Tablet 650 mg PO Q6H PRN (Reason: Fever) acetaminophen 325 mg Tablet 650 mg PO Q4H PRN (Reason: Mild Pain (Scale Score 1-4)) sucralfate 1 gram Tablet 1 g PO QIDACHS ondansetron HCl 4 mg Tablet 4 mg PO Q8H PRN (Reason: Nausea And Vomiting) isosorbide mononitrate 30 mg Tablet Extended Release 24 Hr 30 mg PO DAILY magnesium hydroxide [Milk of Magnesia] 400 mg/5 mL Suspension 30 ml PO DAILY PRN (Reason: no BM in 3 days) sodium bicarbonate 650 mg Tablet 1,300 mg PO BID bisacodyl [Dulcolax (bisacodyl)] 10 mg Suppository 10 mg CO DAILY PRN (Reason: no result from MOM by next shift) prednisone 2.5 mg Tablet 7.5 mg PO DAILY pantoprazole 40 mg Tablet,Delayed Release (Dr/Ec) 40 mg PO DAILY@0630 diphenhydramine HCl 25 mg Tablet 25 mg PO BID PRN (Reason: itchiness) Fleet Enema 19-7 gram/118 mL Enema 118 ml CO DAILY PRN (Reason: if no result from dulcolax within 2 hours) docusate sodium 100 mg Capsule 100 mg PO DAILY PRN (Reason: Constipation) sertraline 25 mg Tablet 25 mg PO DAILY Nephro Vitamins 0.8 mg Tablet 1 tab PO DAILY hydromorphone 4 mg Tablet 4 mg PO Q4H PRN (Reason: moderate to severe pain) mycophenolate sodium 360 mg Tablet,Delayed Release (Dr/Ec) 360 mg PO BID tacrolimus 5 mg Capsule,Extended Release 24hr 10 mg PO DAILY Rx Instructions: must administer in the morning on an empty stomach, 1 hour before or 2 hours after a meal insulin lispro 200 unit/mL (3 mL) Insulin Pen 1 sliding scale dose SUBCUT USEASDIRECTD Rx Instructions: if 150-199 = 2 units, 200-249 = 4 units, 250-299 = 6 units, 300-349 = 8 units, 350-399 = 10 units, 400+ call amlodipine 10 mg tablet 10 mg PO DAILY Qty: 30 0RF Procrit 40,000 unit/mL solution 40,000 unit IV MO Rx Instructions: HOLD FOR HGB OVER 10 Print Language: Citizen Of [place]
--- NOTE | 2024-04-07 08:26 | PC.NURSE ---
This RN received pt from EMS, story is very unclear, this RN/provider/CM attempting to get more information, as she arrived with no paperwork on arrival.
--- OUTSIDE RECORDS SUMMARY | 2024-04-07 08:35 | XMS_ITS | Continuity of Care Document ---
Author Organization [facility] ter Address [address] [place] [id number]- Support Name Relationship Address Phone ARMIN BAILEY sibling Unknown Unavailabl e JOSE G BEARD child Unknown Unavailable WEST, GRETA Personal Relationship Unknown Unava ilable OCASIO, GRETA F Personal Relationship Unknown Unavailable OCASIO WEST, GRETA Personal Relationship Unknown Unavailable CHIRAG, SUNNY spouse Unknown Unavailable OCASIO WEST, GRETA Personal Relationship Unknown Unavailable WEST, L Personal Relationship Unknown Unavai lable WEST III, SUNNY LUTHER Personal Relationship Unknow n Unavailable CHIRAG, SUNNY spouse Unknown Unavailable SUNNY BEARD Personal Relationship Unknown Unava ilable CHIRAG, SUNNY child Unknown Unavailable SUNNY BEARD Personal Relationship Unknown Unava ilable CHIRAG, SUNNY child Unknown Unavailable CHIRAG, SUNNY spouse Unknown Unavailable CHIRAG, SUNNY spouse Unknown Unavailable OCASIO, GRETA F Personal Relationship Unknown Unavailable OCASIO, GRETA F F Personal Relationship Unknown Unavailable SUNNY BEARD C Personal Relationship Unknown Ramona vailable SUNNY BEARD spouse Unknown Unavailable CHIRAG, SUNNY spouse Unknown Unavailable ALFRED BEARD child Unknown Unavailable Care Team Providers 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 Name Role Phone Marita Wetzel DO Primary Care Physician Encounter [facility] Date(s): 03/23/24 - 03/28/[address] [address]- Encounter Diagnosis Acute on chronic kidney failure(Final) - 03/22/24 Discharge Disposition: A-Transfer SNF Attending Physician: Indira Sadler MD Admitting Physician: Ady HERRERA, Nima Referring Physician: Not on Staff, Referring MD Encounter Type: Disch IP Allergies, Adverse Reactions, Alerts Substance Criticality Severity Reaction Reaction Severity Status codeine FAINTING/HIVES Activ e oxyCODONE Active Immunizations Given and Recorded Vaccine Date Status Refusal Reason influenza virus vaccine, inactivated 02/12/24 Give n influenza virus vaccine, inactivated 1 02/26/23 Gi arturo influenza virus vaccine, inactivated 01/23/22 Oliver rded influenza virus vaccine, inactivated 02/14/21 Oliver rded influenza virus vaccine, inactivated 03/09/19 Oliver rded influenza virus vaccine, inactivated 02/12/18 Oliver rded influenza virus vaccine, inactivated 03/04/17 Oliver rded influenza virus vaccine, inactivated 04/11/16 Oliver rded influenza virus vaccine, inactivated 01/30/15 Oliver rded influenza virus vaccine, inactivated 03/04/14 Oliver rded influenza virus vaccine, inactivated 01/23/11 Oliver rded [id number] bivalent booster vax 02/01/22 Recorded tetanus-diphtheria toxoids (Td) 01/18/22 Recorded hepatitis B adult vaccine 10/02/21 Recorded hepatitis B adult vaccine 10/01/21 Recorded hepatitis B adult vaccine 08/03/21 Recorded hepatitis B adult vaccine 07/04/21 Recorded hepatitis B adult vaccine 05/31/21 Recorded hepatitis B adult vaccine 03/04/17 Recorded hepatitis B adult vaccine 05/09/16 Recorded hepatitis B adult vaccine 04/11/16 Recorded Varicella Virus Vaccine 09/19/21 Recorded Varicella Virus Vaccine 05/28/21 Recorded pneumococcal 23-valent vaccine 05/03/21 Recorded pneumococcal 23-valent vaccine 08/13/10 Recorded SARS-CoV-2 (COVID-19) mRNA-1273 vaccine 06/22/20 R ecorded SARS-CoV-2 (COVID-19) mRNA-1273 vaccine 05/25/20 R ecorded pneumococcal 13-valent vaccine 01/05/20 Recorded tetanus/diphtheria/pertussis, acel(Tdap) 01/23/11 Recorded 1Early/Late Reason: Early/Late Reason: Other : administered when patient said it was ok to give Medications acetaminophen 325 mg oral tablet 650 mg, By Mouth, Every 6 hours, PRN, not to exceed 4000 mg/day, Refills 0, Maintenance, Pain , Moderate, 02/20/24 2:22:00 PM EDT, Partial fill upon patient request if the prescription is for a schedule II opioid drug. Start Date: 02/20/24 Status: Ordered Repeat number: 1 AmLODipine Tablet 10 mg, Tablet, By Mouth, Hold for: sbp<120, 03/28/24 9:00:00 AM EST Start Date: 03/28/24 Stop Date: 03/28/24 Status: Completed Repeat number: 1 AmLODipine Tablet 10 mg, By Mouth, Daily, Refills 0, Maintenance, 02/18/23 9:56:00 AM EDT, Partial fill upon patient request if the prescription is for a schedule II opioid drug. Start Date: 02/18/23 Status: Ordered Repeat number: 1 Benadryl 25 mg oral capsule 1 capsule = 25 mg, By Mouth, 2 times a day, PRN for itching, 0 Refills, Maintenance, 03/23/24 8:58:00 AM EST, Capsule, Partial fill upon patient request if the prescription is for a schedule II opioiddrug. Start Date: 03/23/24 Status: Ordered Repeat number: 1 Carafate 1 gm oral tablet 1 Gm, By Mouth, 3 times a day before meals and bedtime, Refills 0, Maintenance, 03/28/24 11:46:00 AMEST, Partial fill upon patient request if the prescription is for a schedule II opioid drug. Start Date: 03/28/24 Status: Ordered Repeat number: 1 carvedilol 25 mg oral tablet 25 mg, 1, tablet, By Mouth, 2 times a day, # 180 tablet, Refills 0, Maintenance, 02/20/24 2:13:00 PMEDT, Partial fill upon patient request if the prescription is for a schedule II opioid drug. Start Date: 02/20/24 Status: Ordered Quantity: 180.0 Unit: tablet Repeat number: 1 carvedilol 25 mg oral tablet 25 mg, Tablet, By Mouth, Hold for: sbp<120, HR<60, 03/27/24 9:00:00 PM EST Start Date: 03/27/24 Stop Date: 03/27/24 Status: Completed Repeat number: 1 carvedilol 25 mg oral tablet 25 mg, Tablet, By Mouth, Hold for: sbp<120, HR<60, 03/28/24 9:00:00 AM EST Start Date: 03/28/24 Stop Date: 03/28/24 Status: Completed Repeat number: 1 Dilaudid 4 mg oral tablet 1 tablet = 4 mg, By Mouth, Every 4 hours, PRN for pain, 0 Refills, Maintenance, 03/23/24 8:57:00 AM EST, Tablet, Partial fill upon patient request if the prescription is for a schedule II opioid drug. Start Date: 03/23/24 Status: Ordered Repeat number: 1 docusate sodium 100 mg oral tablet 1 tablet = 100 mg, By Mouth, 2 times a day, PRN Constipation, # 60 tablet, 0 Refills, Maintenance, 02/13/24 10:37:00 AM EDT, Tablet, Partial fill upon patient request if the prescription is for a schedule II opioid drug. Start Date: 02/13/24 Stop Date: 03/14/24 Status: Ordered Quantity: 60.0 Unit: tablet Repeat number: 1 insulin lispro 100 units/mL injectable solution 2-10 units, Subcutaneous Injection, 3 times a day before meals, 150 - 199 2 units Call if less than70, 200 - 249 4 units, 250 - 299 6 units, 300 - 349 8 units, 350 - 399 10 units Call if greater than 400, 0 Refills, Maintenance, 09/27/23 1:33:00 PM EDT, Injection, Partial fill upon patient request if the prescription is for a schedule II opioid drug. Start Date: 09/27/23 Status: Ordered Repeat number: 1 isosorbide mononitrate 30 mg oral tablet, extended release = 30 mg, By Mouth, Daily in AM, # 30 tablet, 0 Refills, Maintenance, 10/26/23 9:56:00 AM EDT, ER Tablet, [facility] 3, Partial fill upon patient request if the prescription is for a schedule II opioid drug., 169.55, cm, 10/26/23 7:46:00 EDT, Height, 58.3, kg, 10/22/23 19:15:00 EDT, Dry Weight Start Date: 10/26/23 Status: Ordered Quantity: 30.0 Unit: tablet Repeat number: 1 magnesium oxide 400 mg oral tablet = 400 mg, By Mouth, 2 times a day, 0 Refills, Maintenance, 03/28/24 11:46:00 AM EST, Tablet, Partialfill upon patient request if the prescription is for a schedule II opioid drug. Start Date: 03/28/24 Stop Date: 03/31/24 Status: Ordered Repeat number: 1 mycophenolic acid 360 mg oral delayed release tablet = 360 mg, By Mouth, 2 times a day, 0 Refills, Maintenance, 08/20/23 9:37:00 AM EDT, ER Tablet, Partial fill upon patient request if the prescription is for a schedule II opioid drug. Start Date: 08/20/23 Status: Ordered Repeat number: 1 Nephro Vitamins oral tablet 1 tablet, By Mouth, Daily, # 30 tablet, 0 Refills, Maintenance, 11/23/23 10:39:00 AM EDT, [facility]/pharmacy #[id number], Partial fill upon patient request if the prescription is for a schedule II opioid drug., 1 tablet By Mouth Daily, 168, cm, 11/23/23 7:31:00 EDT, Height, 55.6, kg, 11/20/23 19:53:00 EDT, Dry Weight Start Date: 11/23/23 Status: Ordered Quantity: 30.0 Unit: tablet Repeat number: 1 pantoprazole 40 mg oral delayed release tablet 1 tablet = 40 mg, By Mouth, Daily, # 30 tablet, 0 Refills, Maintenance, 08/20/23 7:11:00 AM EDT, EC Tablet Start Date: 08/20/23 Status: Ordered Quantity: 30.0 Unit: tablet Repeat number: 1 predniSONE 5 mg oral tablet 1.5 tablet = 7.5 mg, By Mouth, Daily, # 45 tablet, 0 Refills, Maintenance, 02/13/24 10:36:00 AM EDT, Tablet, Partial fill upon patient request if the prescription is for a schedule II opioid drug. Start Date: 02/13/24 Stop Date: 03/14/24 Status: Ordered Quantity: 45.0 Unit: tablet Repeat number: 1 Procrit 73319 u/ml injectable solution See Instructions, Subcutaneous Injection, 0 Refills, Maintenance, 08/11/23 9:47:00 PM EDT, Partial fill upon patient request if the prescription is for a schedule II opioid drug. Start Date: 08/11/23 Status: Ordered Repeat number: 1 sertraline 25 mg oral tablet 1 tablet = 25 mg, By Mouth, Daily, # 90 tablet, 0 Refills, Maintenance, 08/11/23 9:48:00 PM EDT, Tablet, Partial fill upon patient request if the prescription is for a schedule II opioid drug. Start Date: 08/11/23 Status: Ordered Quantity: 90.0 Unit: tablet Repeat number: 1 sodium bicarbonate 650 mg oral tablet = 1,300 mg, By Mouth, 2 times a day, 0 Refills, Maintenance, 02/20/24 2:22:00 PM EDT, Tablet, Partial fill upon patient request if the prescription is for a schedule II opioid drug. Start Date: 02/20/24 Status: Ordered Repeat number: 1 tacrolimus 1 mg oral tablet, extended release = 2 mg, By Mouth, Daily before breakfast, 0 Refills, Maintenance, 03/28/24 11:46:00 AM EST, XR Tablet, Partial fill upon patient request if the prescription is for a schedule II opioid drug. Start Date: 03/28/24 Status: Ordered Repeat number: 1 tacrolimus 4 mg oral tablet, extended release = 8 mg, By Mouth, Daily before breakfast, 0 Refills, Maintenance, 03/28/24 11:46:00 AM EST, XR Tablet, Partial fill upon patient request if the prescription is for a schedule II opioid drug. Start Date: 03/28/24 Status: Ordered Repeat number: 1 Problem List Condition Confirmation Course Effective Dates Status Health Status Informant Anemia of chronic kidney failure Confirmed Active Cholelithiasis Confirmed Active Carcinoid, of appendix Confirmed Active CKD (chronic kidney disease), stage III Confirmed Active Chronic kidney disease (CKD), stage IV (severe) Confirmed Active ESRD on peritoneal dialysis Confirmed Active Fatigue Confirmed Active GERD with esophagitis Confirmed Active GERD (gastroesophageal reflux disease) Confirmed Active History of ESBL Klebsiella pneumoniae infection Confirmed Active -donor kidney transplant recipient 1 Confirmed 03/17/22 Active HLD (hyperlipidemia) Confirmed Active HTN (hypertension) Confirmed Active Immunosuppression due to drug therapy Confirmed Active Long-term insulin use in type 2 diabetes Confirmed Active Insulin dependent type 2 diabetes mellitus Confirmed Active Metabolic acidosis Confirmed Active Mood disorder Confirmed Active Nausea & vomiting Confirmed Active Underweight Confirmed Active 1campath induction Results Radiology Reports * Exam Date Time Procedure Performing Provider Status 03/26/24 1:22 PM XR Hip w/Pelvis 2-3 View Left Sintia Sarabia; Jose (Verified) Notes: (XR Hip w/Pelvis 2-3 View Left) Reason For Exam: Postop Hip Pinning RESULT: XR Hip w/Pelvis 2-3 View Left XR Hip w/Pelvis 2-3 View Left Reason: Postop Hip Pinning; Clinical Question(s): Position Fixation COMPARISON: 02/10/2024. FINDINGS: Status post ORIF femoral neck fracture with 3 screws. Moderate arthritic changes at both hips. Extensive vascular calcifications. No acute pelvic or hip fracture. Normal soft tissues. IMPRESSION: ORIF of left femoral neck fracture with 3 screws. The fracture appears well aligned. Moderate arthritic changes of both hips. WSN: [id number] Ordering Physician: Patricia Piña Dictated By: Parvez Gabriel MD Dictated Date/Time: 03/26/24 2:41 pm Reviewed By: Parvez Gabriel MD Signed By: Parvez Gabriel MD Signed Date/Time: 03/26/24 2:41 pm Transcribed By: CSMelisa Transcribed Date/Time: 03/26/24 2:37 pm * Exam Date Time Procedure Performing Provider Status 03/22/24 9:02 PM US Renal Transplant Doppler Mitchell Aguayo ssa; Auth (Verified) Notes: (US Renal Transplant Doppler) Reason For Exam: Transplant Reject RESULT: US Renal Transplant Doppler US Renal Transplant Doppler Hx of Present Illness: labs today with kidney failure. PMH of Kidney transplant x 1 year ago; Reason: Transplant Reject; Clinical Question(s): Transplant Doppler COMPARISON: Renal transplant ultrasound 11/13/2022, CT abdomen and pelvis 10/22/2023 FINDINGS: TRANSPLANT KIDNEY: Left lower quadrant. 9.9 cm in length. Dilated extrarenal pelvis measuring 1.9 cm with minimal dilatation of the major and minor calyces. No perinephric fluid collection. DOPPLER EVALUATION: Main renal artery at hilum: Patent. Main renal artery angle corrected velocity 158.5 cm/sec (Normal range varies depending on type of anastomosis, typically less than 250-300 cm/sec). Main renal vein at hilum: Patent. Renal segmental artery resistive indices (Normally 0.6-0.8): Upper pole: 0.88, previously 0.84 Mid: 0.88, previously 0.85 Lower pole: 0.71, previously 0.9 Renal parenchymal flow: Qualitatively normal parenchymal flow on color Doppler images. No evidence of renal infarct. URINARY BLADDER: Normal. No stone, mass, wall thickening or debris. IMPRESSION: Mild hydronephrosis of the transplanted kidney. Persistently elevated resistive indices, which can be seen in the setting of transplant rejection. I have personally reviewed the images and I agree with this report. WSN: [id number] Ordering Physician: Charlie Lackey Dictated By: Samina Cronin MD Dictated Date/Time: 03/22/24 9:11 pm Reviewed By: Jaqueline Avila MD Signed By: Jaqueline Avila MD Signed Date/Time: 03/22/24 9:16 pm Transcribed By: TAYLOR Transcribed Date/Time: 03/22/24 9:08 pm Vital Signs Most recent to oldest [Reference Range]: 1 2 3 Height 168 cm (03/28/24 7:44 AM) 168 cm (03/27/24 9:03 PM) 168 cm (03/27/24 7:46 AM) Weight 55.3 kg (03/27/24 7:49 AM) 48.5 kg (03/23/24 11:07 AM) Oxygen Saturation [94-100 %] 100 % (03/28/24 7:44 AM) 100 % (03/27/24 9:03 PM) 100 % (03/27/24 7:00 PM) Pulse Rate [55-90 bpm] 64 bpm (03/28/24 8:08 AM) 64 bpm (03/28/24 7:44 AM) 64 bpm (03/27/24 9:07 PM) Body Mass Index [18.5-24.99 kg/m2] 17.18 kg/m2 *L* (03/23/24 11:07 AM) Blood Pressure [90-138/55-84 mm Hg] 158/53mm Hg *H* (03/28/24 8:08 AM) 158/53mm Hg *H* (03/28/24 8:08 AM) 158/53mm Hg *H* (03/28/24 7:44 AM) Respiratory Rate [16-30 br/min] 18 br/min (03/28/24 7:44 AM) 18 br/min (03/27/24 7:00 PM) 18 br/min (03/27/24 7:46 AM) Temperature [96.8-100.4 DegF] 99.0 DegF (03/28/24 7:00 AM) 97.8 DegF (03/27/24 7:00 PM) 98.9 DegF (03/27/24 7:46 AM) Mode of Delivery (Oxygen) Room air (03/28/24 7:44 AM) Room air (03/27/24 9:03 PM) Room air (03/27/24 7:00 PM) Blood pressure sites Arm, right (03/28/24 7:44 AM) Arm, right (03/27/24 9:03 PM) Arm, right (03/27/24 7:00 PM) Temperature Route Oral (03/28/24 7:00 AM) Oral (03/27/24 7:00 PM) Oral (03/27/24 7:46 AM) Dry Weight 48.5 kg (03/23/24 11:07 AM) Weight Obtained Via Bed scale (03/27/24 7:49 AM) Patient/family stated (03/23/24 11:07 AM) Social History Social History Type Response Smoking Status Never (less than 100 in lifetime) entered on: 01/10/23 Sex Sex Representation Female (finding) Consult note * Heather Kumar MD: PERFORM Event Display: Consult Authored Date: [id number] Patient: ??GRETA BEARD ? Age:??63 Years?Sex:??Female?:??1960?? Chief Complaint Pt coming from [facility] with assumed kidney failure, pt had kidney transplant one year ago, ?meds ineffective. 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 CKD stage 5 of allograft, baseline??serum creatinine has been around 2.5-4.0 mg/dL lately.?? Presents from rehab due to worsening renal function. Pt refers having been with diarrhea since being discharged from the hospital. Also refers that she has had low appetite.? Recent admission due to??left femoral neck fracture, now s/p repair. During that hospitalizationreceived abx??for possible HAP.?Renal on board for immunosuppression management and shai of allograft.?? Review of Systems Const: no fever, no chills HEENT: no dizziness, no headaches, no vision changes Resp: Admits cough, no SOB, no wheezing,?? CV: no chest pain, no palpitations, no edema, no orthopnea, no syncope GI: Admits diarrhea, nausea, vomiting,??no abdominal pain, no constipation, no melena, no hematochezia : no dysuria, no hematuria MSK: Refers hip pain,?no myalgias, no DROM, no back pain Neuro: no paresthesias, no focal weakness?? Skin: no rashes Heme: No easy bruising, no bleeding or clotting tendency ?? 01/28 systems were reviewed and were negative for any positive or negative complaint, except as mentioned above. Physical Exam Vitals & Measurements T:??97.7?F?? TMIN:??97.7?F?? TMAX:??98.7?F?? HR:??68??(Peripheral)?? RR:??19?? BP:??155/72?? SpO2:??100%?? WT:??48.5??kg?? 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 CKD stage 5 of allograft.??Renal on board for immunosuppression management and shai of allograft.? ESRD s/p DDKT (02/2022)?? SHAI of allograft?? Was discharged with a sCr of 3. Presents with 4.4. Pre is volume depleted, likely SHAI due to pre-renal azotemia, agree with isotonic fluids.??No indication for renal replacement therapy at the moment. But she has very little reserve and every hit will lead to major decrease in renal function.?? Plan to give bolus of 1L. Cont fluids. Has some fullness of allograft, will get bladder scans to r/o retention. Will send DSAs.?? Plan to cont current immunosuppressions and adjust tacro as per trough.??Cont??tacrolimus 8 mg oncea day, continue MMF 360 mg twice a day, continue prednisone 7.5 mg once a day.?? Concern??for diarrhea and anorexia, CMV sent, plan to monitor diarrhea, may require r/o c. diff andother viral??etiologies if cont??with sxs.? PLAN: ?? Cont isotonic IVF after 1 L bolus (already ordered) Cont tacrolimus 8 mg once a day and mycophenolate 360 mg twice a day, and prednisone 7.5 mg once a day. Daily tacro through while inpatient No indication for ELECTRICAL EQUIPMENT TESTER at this moment Cont sodium bicarb Daily bladder scans Daily BMP DSA and CMV Plan discussed with primary team.? Patient evaluated and discussed with Dr. Padilla and??Dr. Lindquist.? Heather Kumar, PGY4 Nephrology Fellow Pager Number [phone]/Available [employer]? Discharge Planning:? 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 2 diabetes mellitus Long-term insulin use in type 2 diabetes Metabolic acidosis Mood disorder Nausea & vomiting Underweight Procedure/Surgical History ???Percutaneous skeletal fixation of femoral fracture, proximal end, neck (02/11/2024)???EGD - esophagogastroduodenoscopy (09/17/2023)???Colonoscopy (04/17/2020) Medications Inpatient Acetaminophen Tablet, 650 mg, By Mouth, Every 4 hours, PRN AmLODipine Tablet, 10 mg, By Mouth, Daily Bolus NaCL 0.9% 1,000 mL, 1000 mL, IV Infusion, Once Carafate 1 gm oral tablet, 1 Gm, By Mouth, 3 times a day before meals and bedtime carvedilol 25 mg oral tablet, 25 mg, By Mouth, 2 times a day Dextrose 50% Inj Syringe (25Gm), 12.5 Gm, IV Push Slowly, Every 20 minutes, PRN Dextrose 50% Inj Syringe (25Gm), 25 Gm, IV Push Slowly, Every 15 minutes, PRN Docusate Sodium Capsule, 100 mg= 1 capsule, By Mouth, 2 times a day, PRN Glucagon Inj, 1 mg, Intramuscular, Once, PRN Glucose Gel, 15 Gm, By Mouth, Every 20 minutes, PRN Glucose Gel, 30 Gm, By Mouth, Every 20 minutes, PRN Heparin Inj, 5000 units= 1 mL, Subcutaneous Injection, 3 times a day Insulin LISPRO Sliding Scale, 2-10 units, Subcutaneous Injection, 3 times a day before meals isosorbide mononitrate 30 mg oral tablet, extended release, 30 mg, By Mouth, Daily in AM Melatonin Tablet, 3 mg, By Mouth, Daily at bedtime, PRN MiraLax Powder, 17 Gm= 1 pack/packet, By Mouth, Daily, PRN Myfortic 360 mg oral delayed release tablet, 360 mg, By Mouth, 2 times a day NaCL 0.9% 1,000 mL, 1000 mL, IV Infusion NaCL 0.9% Flush, 3 mL, IV Push, Every 8 hours NaCL 0.9% Flush, 3 mL, IV Push, Every 8 hours, PRN pantoprazole 40 mg oral delayed release tablet, 40 mg, By Mouth, Daily predniSONE 5 mg oral tablet, 7.5 mg, By Mouth, Daily Senna Tablet, 8.6 mg= 1 tablet, By Mouth, 2 times a day, PRN sertraline 25 mg oral tablet, 25 mg, By Mouth, Daily Simethicone Tablet, 80 mg, Chew, 3 times a day, PRN sodium bicarbonate 650 mg oral tablet, 1300 mg, By Mouth, 2 times a day tacrolimus 4 mg oral tablet, extended release, 8 mg, By Mouth, Daily in AM Home acetaminophen 325 mg oral tablet, 650 mg, By Mouth, Every 6 hours, PRN AmLODipine Tablet, 10 mg, By Mouth, Daily Benadryl 25 mg oral capsule, 25 mg= 1 capsule, By Mouth, 2 times a day, PRN carvedilol 25 mg oral tablet, 25 mg= 1 tablet, By Mouth, 2 times a day Dilaudid 4 mg oral tablet, 4 mg= 1 tablet, By Mouth, Every 4 hours, PRN docusate sodium 100 mg oral tablet, 100 mg= 1 tablet, By Mouth, 2 times a day, PRN insulin lispro 100 units/mL injectable solution, 2-10 units, Subcutaneous Injection, 3 times a day before meals isosorbide mononitrate 30 mg oral tablet, extended release, 30 mg, By Mouth, Daily in AM mycophenolic acid 360 mg oral delayed release tablet, 360 mg, By Mouth, 2 times a day Nephro Vitamins oral tablet, 1 tablet, By Mouth, Daily pantoprazole 40 mg oral delayed release tablet, 40 mg= 1 tablet, By Mouth, Daily predniSONE 5 mg oral tablet, 7.5 mg= 1.5 tablet, By Mouth, Daily Procrit 17164 u/ml injectable solution, See Instructions sertraline 25 mg oral tablet, 25 mg= 1 tablet, By Mouth, Daily sodium bicarbonate 650 mg oral tablet, 1300 mg, By Mouth, 2 times a day tacrolimus 1 mg oral tablet, extended release, 8 mg= 8 tablet, By Mouth, Daily in AM Allergies codeine??(FAINTING/HIVES) oxyCODONE Social History Tobacco Use: Never (less than 100 in lifetime). Lab Results Test Name Test Result Date/Time WBC 11.2 k/mm3 03/23/2024 04:17 EST Hgb 7.5 Gm/dL 03/23/2024 04:17 EST Hct 26.0 % 03/23/2024 04:17 EST Platelet Count 215 k/mm3 03/23/2024 04:17 EST Sodium 135 mmol/L 03/23/2024 04:17 EST Potassium 4.7 mmol/L 03/23/2024 04:17 EST Chloride 104 mmol/L 03/23/2024 04:17 EST Bicarbonate Level 17 mmol/L 03/23/2024 04:17 EST BUN 47 mg/dL 03/23/2024 04:17 EST Creatinine-Blood 4.42 mg/dL 03/23/2024 04:17 EST * Son Padilla MD: PERFORM Event Display: Consult Authored Date: history of tcmr, smouldering abmr, as well as poor po intake and failure to thrive requiring PEG. here with shai, reportedly decreased intake, questionable diarrhea. will get dsa and cmv and 1 L NS for volume. repeat labs in am. if diarrhea persists will pursue c diff as she has had it in the past. Admission evaluation note * Bianka HERRERA, Prudencio: PERFORM, MODIFY Event Display: Admission Note Authored Date: Patient: ??GRETA BEARD ? Age:??63 Years?Sex:??Female?:??1960?? Chief Complaint/Reason for Consultation Pt coming from [facility] with assumed kidney failure, pt had kidney transplant one year ago, ?meds ineffective. History of Present Illness 63-year-old female with history of ESRD secondary to hypertension/diabetes status post DDKT (02/2022) on immunosuppression with mycophenolate, tacrolimus, prednisone, CKD stage V of allograft, chronic persistent T-cell rejection, hypertension, type 2 diabetes mellitus, anemia of chronic disease, history of ESBL Klebsiella pneumonia, history of carcinoid of appendix s/p resection, anxiety/depression, hypertension, GERD, recent fracture of left femoral neck status post left hip pinning 02/11/2024sent to the emergency department from her rehab facility secondary to rising creatinine levels. ?? Patient has reportedly undergone several medication adjustments of her immunosuppression for thepossibility of transplant rejection and the staff at her rehab facility were concerned given increasing creatinine levels and sent the patient to the emergency department to be evaluated by nephrology here.?? Labs that were sent in paperwork from facility revealed creatinine of 4.9 with a BUN of 51.?? There is an additional lab draw showing creatinine of 2.66 with a BUN of 41, nonetheless a repeat blood work in the emergency department revealed creatinine of 4.37.?? Patient's last creatinine on02/20/2024 was 3.07.?? Patient denies having any chest pain or shortness of breath, reports feeling a little tired however denies any fever or chills, no nausea or vomiting, no chest pain or shortnessof breath, no abdominal pain, diarrhea, constipation or dysuria.?? Reports that she is adherent to her medication regimen. Review of Systems All systems are reviewed??and are negative except as noted above in the HPI. Objective Vital Signs?? Temperature: 97.8 DegF (03/23/24 02:40:00) Temperature Route: Oral (03/23/24 02:40:00) Pulse Rate: 70 bpm (03/23/24 02:40:00) Respiratory Rate: 17 br/min (03/23/24 02:40:00) Systolic Blood Pressure:??156 mm Hg??High (03/23/24 02:40:00) Diastolic Blood Pressure: 69 mm Hg (03/23/24 02:40:00) Blood pressure sites: Arm, right (03/23/24 02:40:00) Mean Arterial Pressure: 98 mm Hg (03/23/24 02:40:00) Pulse Pressure: 87 mm Hg (03/23/24 02:40:00) Oxygen Saturation: 99 % (03/23/24 02:40:00) Mode of Delivery (Oxygen): Room air (03/23/24 02:40:00) Early Warning Score: 3 (03/23/24 02:40:36) ? Physical Exam General: Alert, oriented x 3, no acute distress HEENT: Atraumatic, normocephalic, EOMI, PERRL Neck: Supple, trachea midline Respiratory: CTAB, no wheezes, crackles or rhonchi CVS: S1, S2.?? RRR, no MRG, no JVD Abdomen: Soft, nontender, nondistended, positive bowel sounds Musculoskeletal: No deformities, no cyanosis Neuro: Alert and oriented x 3, cranial nerves II to XII intact, no facial asymmetry Psych: Appropriate mood and affect, cooperative Assessment/Plan Diagnoses Acute on chronic kidney failure ??(N17.9) Anemia of chronic kidney failure ??(N18.9) Chronic GERD ??(K21.9) Diabetes mellitus ??(E11.9) Fracture of femoral neck, left ??(S72.002A) Hypertension ??(I10) Transplant rejection ??(T86.91) ?? Assessment:??63-year-old female with history of ESRD secondary to hypertension/diabetes status postDD KT (02/2022) on immunosuppression with mycophenolate, tacrolimus, prednisone, CKD stage V of allograft, chronic persistent T-cell rejection, hypertension, type 2 diabetes mellitus, anemia of chronic disease, history of ESBL Klebsiella pneumonia, history of carcinoid of appendix s/p resection, anxiety/depression, hypertension, GERD, recent fracture of left femoral neck status post left hip pinning 02/11/2024 sent to the emergency department from her rehab facility secondary to rising creatinine levels??and concern for transplant rejection. ?? Acute on chronic kidney failure (N17.9) Transplant rejection (T86.91) ? Patient with history of ESRD secondary to hypertension/diabetes status post DDKT (02/2022) on immunosuppression with mycophenolate, tacrolimus and prednisone, CKD stage V of allograft, chronic persistent T-cell rejection.??Concern for possible transplant rejection hence was brought to the emergency department for further evaluation management.??Current creatinine 4.37, patient's last creatinine on 02/20/2024 was 3.07.??Patient is on tacrolimus, mycophenolate and prednisone for immunosuppression.??Mycophenolate level noted to be slightly elevated at 4.0, will hold off on it for now.??Tacro levels are pending and will resume depending on the levels.??Will continue with prednisone 7.5mg daily.??Status post 500 cc of IV fluids, ultrasound revealed mild hydronephrosis of the transplanted kidney, persistently elevated resistive indices, which can be seen in the setting of transplantrejection.??ED provider consulted nephrology who recommended gentle hydration and will evaluate the patient in AM.??Continue with gentle IV fluids, repeat electrolytes and renal function in a.m., formal consultation with nephrology requested. ?? Fracture of femoral neck, left (S72.002A):??Status post??pinning??02/11/2024.?No acute complaints, analgesics as needed ?? Chronic GERD (K21.9):??Continue??Protonix and Carafate ?? Anemia of chronic kidney failure (N18.9):??Baseline??hemoglobin??appears to be around 8.5, current hemoglobin slightly??lower at 8.0.??We will continue to monitor CBC closely, no??bleeding noted or reported ?? Diabetes mellitus (E11.9):??Continue with sliding scale insulin, glucose POC.??Patient used to be on Lantus in the past however now only on??sliding scale insulin ?? Hypertension (I10):??Continue??Coreg, amlodipine, Imdur ?? VTE Prophylaxis:??Subcutaneous heparin ?VTE Prophylaxis Assessment:??VTE Prophylaxis Ordered ?? Discharge Planning:??Pending clinical course ?? Code Status:??Full code ?Order Code Status:??Code Status Ordered ? Histories Allergies Allergies ?(Active and Proposed Allergies Only) codeine? (Severity: Unknown severity, Onset: Unknown) ?Reactions: FAINTING/HIVES oxyCODONE? (Severity: Unknown severity, Onset: Unknown) ? Past Medical History/Problem List Active Problems(19) Anemia of chronic kidney failure Carcinoid, of appendix Cholelithiasis Chronic kidney disease (CKD), stage IV (severe) CKD (chronic kidney disease), stage III -donor kidney transplant recipient ESRD on peritoneal dialysis Fatigue GERD (gastroesophageal reflux disease) GERD with esophagitis History of ESBL Klebsiella pneumoniae infection HLD (hyperlipidemia) HTN (hypertension) Immunosuppression due to drug therapy Insulin dependent type 2 diabetes mellitus Long-term insulin use in type 2 diabetes Metabolic acidosis Mood disorder Nausea & vomiting ? Past Surgical History Percutaneous skeletal fixation of femoral fracture, proximal end, neck: 02/11/24 EGD - esophagogastroduodenoscopy: 09/17/23 Colonoscopy: 04/17/20 ? Social History Tobacco Details:??Use: Never (less than 100 in lifetime). ? Family History mother- DM ? Medications Home Medications Acetaminophen (acetaminophen 325 mg oral tablet)?650?Milligram?By Mouth?Every 6 hours?as needed?not to exceed 4000 mg/day?Pain , Moderate Amlodipine (AmLODipine Tablet)?10?Milligram?G Tube?Daily?By Mouth Carvedilol (carvedilol 25 mg oral tablet)?25?Milligram?1?tablet?By Mouth?2 times a day Docusate (docusate sodium 100 mg oral tablet)?1?tab(s)?100?Milligram?By Mouth?2 times a day?as needed?Constipation?for 30?Days Epoetin Bassem (Procrit 28798 u/ml injectable solution)?See Instructions?Subcutaneous Injection Insulin Lispro (insulin lispro 100 units/mL injectable solution)?2-10 units?Subcutaneous Injection?3 times a day before meals?150 - 199 ??2 units ??Call if less than 70, 200 - 249 ??4 units, 250 - 299 ??6 units, 300 - 349 ??8 units, 350 - 399 ??10 units ??Call if greater than 400 Isosorbide Mononitrate (isosorbide mononitrate 30 mg oral tablet, extended release)?30?Milligram?By Mouth?Daily in AM Multivitamin (Nephro Vitamins oral tablet)?1?tab(s)?By Mouth?Daily Mycophenolate Sodium (mycophenolic acid 360 mg oral delayed release tablet)?360?Milligram?By Mouth?2 times a day Pantoprazole (pantoprazole 40 mg oral delayed release tablet)?1?tab(s)?40?Milligram?By Mouth?Daily PredniSONE (predniSONE 5 mg oral tablet)?1.5?tab(s)?7.5?Milligram?By Mouth?Daily?for 30?Days Sertraline (sertraline 25 mg oral tablet)?1?tab(s)?25?Milligram?By Mouth?Daily sodium bicarbonate (sodium bicarbonate 650 mg oral tablet)?1,300?Milligram?By Mouth?2 times a day Sucralfate (Carafate 1 gm oral tablet)?1?gram?By Mouth?3 times a day before meals and bedtime?for 10?Days Tacrolimus (tacrolimus 1 mg oral tablet, extended release)?8?tab(s)?8?Milligram?By Mouth?Daily in AM?for 30?Days ? Results Recent Labs BLOOD COUNT & DIFF WBC 10.8 k/mm3 ()?? 03/22/2024 19:00 RBC 2.94 m/mm3 (Low)?? 03/22/2024 19:00 Hgb 8.0 Gm/dL (Low)?? 03/22/2024 19:00 Hct 28.2 % (Low)?? 03/22/2024 19:00 MCV 95.9 femtoliters ()?? 03/22/2024 19:00 MCH 27.2 pg ()?? 03/22/2024 19:00 MCHC 28.4 Gm/dL (Low)?? 03/22/2024 19:00 Platelet Count 198 k/mm3 ()?? 03/22/2024 19:00 RDW-SD 61.5 femtoliters (High)?? 03/22/2024 19:00 MPV 10.4 femtoliters ()?? 03/22/2024 19:00 Nucleated RBC (Automated) 0.0 #/100 WBC'S ()?? 03/22/2024 19:00 Abs. NRBC 0.0 k/mm3 ()?? 03/22/2024 19:00 Abs. Neut 9.5 k/mm3 (High)?? 03/22/2024 19:00 Abs. Lymph 0.5 k/mm3 (Low)?? 03/22/2024 19:00 Abs. [place] 0.6 k/mm3 ()?? 03/22/2024 19:00 Abs. Eo 0.0 k/mm3 ()?? 03/22/2024 19:00 Abs. Baso 0.0 k/mm3 ()?? 03/22/2024 19:00 Neut % 88.3 % (High)?? 03/22/2024 19:00 Lymph % 5.0 % (Low)?? 03/22/2024 19:00 [place] % 5.3 % ()?? 03/22/2024 19:00 Eos % 0.3 % ()?? 03/22/2024 19:00 Baso % 0.1 % ()?? 03/22/2024 19:00 Imm Gran 1.0 % ()?? 03/22/2024 19:00 Abs. Imm Gran 0.1 k/mm3 ()?? 03/22/2024 19:00 ?? CHEM GENERAL Sodium 131 mmol/L (Low)?? 03/22/2024 19:00 Potassium 4.9 mmol/L ()?? 03/22/2024 19:00 Chloride 100 mmol/L ()?? 03/22/2024 19:00 Bicarbonate Level 17 mmol/L (Low)?? 03/22/2024 19:00 Anion Gap 14 ()?? 03/22/2024 19:00 Glucose Level 276 mg/dL (High)?? 03/22/2024 19:00 BUN 47 mg/dL (High)?? 03/22/2024 19:00 Creatinine-Blood 4.37 mg/dL (High)?? 03/22/2024 19:00 Estimated GFR Creatinine 11 ML/MIN/1.73 M2 ()?? 03/22/2024 19:00 Calcium 8.8 mg/dL ()?? 03/22/2024 19:00 ?? TOXICOLOGY/TDM Mycophenolate Level 4.0 ??g/mL (High)?? 03/22/2024 19:00 ? EKG study * Event Display: ECG 12-Lead Authored Date: Please click on pdf link to open report * Event Display: ECG 12-Lead Authored Date: Ventricular Rate: 68 BPM Atrial Rate: 68 BPM P-R Interval: 170 ms QRS Duration: 74 ms Q-T Interval: 388 ms QTC Calculation(Bazett): 412 ms P [place]: 81 degrees R [place]: -32 degrees T [place]: 26 degrees Normal sinus rhythm Left axis deviation Septal infarct (cited on or before 20-Nov-2023) Abnormal ECG Confirmed by ZBIGNIEW ENGLISH ([id number]) on 03/23/2024 4:15:05 PM [place]: ZBIGNIEW ENGLISH [facility] Progress note * Son Padilla MD: PERFORM Event Display: Progress Note Hospital Authored Date: Patient: ??CHIRAG, GRETA ? Age:??63 Years?Sex:??Female?:??1960?? SUBJECTIVE tells me her tears yesterday were related to prayer not actual sadness. ?? OBJECTIVE:?? Physical exam HEMODIALYSIS ACCESS??Left AVF with palpable thrill ...Left upper chest port ?? Labs??(Last four charted values) WBC ?10.3?(MAR 28)?9.9?(MAR 27)?9.2?(MAR 26)?10.0?(MAR 25) Hgb ?L??7.3?(MAR 28)?L??7.7?(MAR 27)?L??7.6?(MAR 26)?L??7.9?(MAR 25) Hct ?L??24.5?(DEC 08)?L??25.3?(DEC 07)?L??25.2?(DEC 06)?L??25.6?(DEC 05) Plt ?221?(DEC 08)?207?(DEC 07)?214?(DEC 06)?217?(DEC 05) Na ?138?(DEC 08)?140?(DEC 07)?140?(DEC 06)?138?(DEC 05) K ?3.8?(DEC 08)?4.2?(DEC 07)?3.8?(DEC 06)?3.9?(DEC 05) Cr ?H??3.28?(DEC 08)?H??3.43?(DEC 07)?H??3.65?(DEC 06)?H??3.87?(DEC 05) BUN ?H??38?(DEC 08)?H??41?(DEC 07)?H??42?(DEC 06)?H??50?(DEC 05) Glucose ?H??120?(DEC 08)?H??103?(MAR 27)?H??193?(MAR 24)?H??201?(MAR 23) Glucose Random ?H??148?(MAR 28)?H??156?(MAR 27)?H??206?(MAR 27)?H??168?(MAR 27) Mg ?L??1.2?(MAR 27) Phos ?3.0?(MAR 23) ?? ASSESMENT: 63-year-old female with history of hypertension, hyperlipidemia, type 2 diabetes, end-stage renal disease secondary to diabetes nephropathy/hypertensive nephrosclerosis, status post DDKT in 02/2022, history of T-cell mediated rejection and also antibody-mediated rejection. CKD stage 5 of allograft.??Renal on board for immunosuppression management and shai of allograft.? ESRD s/p DDKT (02/2022)?? SHAI of allograft?? Was discharged with a sCr of 3. Presents with 4.4. Today improving to 3.4.?? Suspect this is mostlyfrom prerenal SHAI with blood touch of ATN as well. ??She has very little reserve and every hit willlead to major decrease in her renal function. ??Over the past year she has gone from CKD 3 to CKD 4/5 DSAs pending. have increased tacrolimus to 10 CMV and c. diff are negative.??Agree with loperamide. ?? Anemia S/P 1 PRBC, adequate response, HGB is 7.9.??Normal iron sat, likely component of anemia of kidney disease. ?? PLAN:? 1L of NS today, okay for discharge from nephrology perspective Cont tacrolimus??10 mg once a day, mycophenolate 360 mg twice a day, and prednisone 7.5 mg once a day. DSA pending, can be followed up outpatient * Jerod Adames DO: PERFORM Event Display: Progress Note Hospital Authored Date: Renal attending addendum: Patient seen and examined on date of service and agree with the above described assessment and recommendations put forward by the nephrology fellow. Discharging on Envarsus 10 mg daily will arrange for close outpatient transplant clinic follow-up. * Nathalie Garsia: PERFORM, SIGN, VERIFY Event Display: Progress Note Hospital Authored Date: Patient: GRETA BEARD Age: 63 years Sex: Female : 1960 Associated Diagnoses: None Author: Nathalie Garsia Findings Problem Related to Alteration in Genitourinary : Alteration in Genitourinary Function/new 03/27/2024 23:00 EST Alteration in Status Related to Renal failure Goals & Outcomes, Genitourinary Pt will achieve normal/improved fluid balance, Pt will maintainadequate function appropriate for pt Interventions, Assess/monitor/maintain Genitourinary status, Assist & encourage pt with meticulous stanford care, Encourage PO fluid intake as allowed by diet BH Goals/Interventions, Genitourinary Yes Genitourinary, Problem Start 03/23/2024 17:22 Reviewed Plan with, Genitourinary Patient Patient Progression, Genitourinary Patient progressing according to plan Genitourinary, Problem Ongoing Yes . Nursing Data Vital Signs : VITAL SIGNS SECTION 03/27/2024 21:08 EST Early Warning Score 2.00 03/27/2024 21:07 EST Pulse Rate 64 bpm Systolic Blood Pressure 150 mm Hg H Diastolic Blood Pressure 62 mm Hg 03/27/2024 21:06 EST Early Warning Score 2.00 03/27/2024 21:03 EST Pulse Rate 64 bpm Systolic Blood Pressure 150 mm Hg H Diastolic Blood Pressure 62 mm Hg Blood pressure sites Arm, right Mean Arterial Pressure 91 mm Hg Pulse Pressure 88 mm Hg Oxygen Saturation 100 % Mode of Delivery (Oxygen) Room air 03/27/2024 20:29 EST Early Warning Score 2.00 03/27/2024 19:45 EST Early Warning Score 2.00 03/27/2024 19:00 EST Temperature 97.8 DegF Temperature Route Oral Pulse Rate 70 bpm Respiratory Rate 18 br/min Systolic Blood Pressure 132 mm Hg Diastolic Blood Pressure 64 mm Hg Blood pressure sites Arm, right Oxygen Saturation 100 % Mode of Delivery (Oxygen) Room air . Narrative/Incidental A+Ox4. R eye blindness. Pt denies CP/SOB. Clear lungs, room air. Pt tolerating diet, denies N/V, +BS4Q, abdomen is s/nt/nd, LBM 12/. Steri strips to L hip surgical incision, open to air without redness or drainage. +CMS +pulses to extremities. Stage 2 to buttocks; Mepilex in place. R chest portacath, patent with +blood return; pt receiving daily CHG wipes per protocol. Pt resting on centrella bed. Pt remaining bedfast for duration of shift; pt T&R q2h and PRN comfort. Bed in low locked position, bed alarm on for safety, nonslip footwear in place, call timmons and belongings within reach. P: Alteration in genitourinary status I: See interventions in above care plan E: Pt voiding spontaneously with primafit in place, clear yellow urine. LUE fistula, +bruit +thrill. q shift bladder scans in place. Plan of care ongoing. Discharge Information Rehabilitation Discharge : Rehab Discharge Index 03/26/2024 10:31 EST Comments on treatment indicated 63 yo F recent fracture of left femoral neck status post left hip pinning 02/11/2024 sent to the emergency department from her rehab facility secondary to rising creatinine levels. TDWB LLE Walker: distance 10-20 Distance pt will ambulate 50ft/RW Full chart review completed Yes Other findings This PT contact ortho via tigertext to confirm WB status, cont to TDWB until x rays done. Plan of care PT Gait training, Transfer training, Therapeutic exercise, Functional Activities * Son Padilla MD: PERFORM Event Display: Progress Note Hospital Authored Date: Patient: ??GRETA BEARD ? Age:??63 Years?Sex:??Female?:??1960?? SUBJECTIVE is in tears this morning ?? OBJECTIVE:?? Physical exam HEMODIALYSIS ACCESS??Left AVF with palpable thrill ...Left upper chest port ?? Labs??(Last four charted values) WBC ?9.9?(DEC 07)?9.2?(DEC 06)?10.0?(DEC 05)?9.2?(DEC04) Hgb ?L??7.7?(DEC 07)?L??7.6?(DEC 06)?L??7.9?(DEC 05)?L??6.8?(DEC 04) Hct ?L??25.3?(DEC 07)?L??25.2?(DEC 06)?L??25.6?(DEC 05)?L??23.5?(DEC 04) Plt ?207?(DEC 07)?214?(DEC 06)?217?(DEC 05)?204?(DEC 04) Na ?140?(DEC 07)?140?(DEC 06)?138?(DEC 05)?136?(DEC 04) K ?4.2?(DEC 07)?3.8?(DEC 06)?3.9?(DEC 05)?4.7?(DEC 04) Cr ?H??3.43?(DEC 07)?H??3.65?(DEC 06)?H??3.87?(DEC 05)?H??4.04?(DEC 04) BUN ?H??41?(DEC 07)?H??42?(DEC 06)?H??50?(DEC 05)?H??47?(DEC 04) Glucose ?H??103?(DEC 07)?H??193?(DEC 04)?H??201?(DEC 03)?H??276?(DEC 02) Glucose Random ?H??206?(DEC 07)?H??168?(DEC 07)?H??104?(DEC 07)?H??100?(DEC 06) Mg ?L??1.2?(DEC 07) Phos ?3.0?(DEC 03) ?? ASSESMENT: 63-year-old female with history of hypertension, hyperlipidemia, type 2 diabetes, end-stage renal disease secondary to diabetes nephropathy/hypertensive nephrosclerosis, status post DDKT in 02/2022, history of T-cell mediated rejection and also antibody-mediated rejection. CKD stage 5 of allograft.??Renal on board for immunosuppression management and shai of allograft.? ESRD s/p DDKT (02/2022)?? SHAI of allograft?? Was discharged with a sCr of 3. Presents with 4.4. Today improving to 3.4.?? Suspect this is mostlyfrom prerenal SHAI with blood touch of ATN as well. ??She has very little reserve and every hit willlead to major decrease in her renal function. ??Over the past year she has gone from CKD 3 to CKD 4/5 DSAs pend. Plan to cont current immunosuppressions and adjust tacro as per trough.?? CMV and c. diff are negative.??Agree with loperamide. ?? Anemia S/P 1 PRBC, adequate response, HGB is 7.9.??Normal iron sat, likely component of anemia of kidney disease. ?? PLAN:? 1L of NS Cont tacrolimus??9 mg once a day, mycophenolate 360 mg twice a day, and prednisone 7.5 mg once a day. DSA pend?? * Jerod Adames DO: PERFORM Event Display: Progress Note Hospital Authored Date: I have seen and evaluated the patient in conjunction with the nephrology fellow. I have personally examined the patient, reviewed their history, confirmed the above findings, and agree with the impressions and recommendations of the nephrology fellow.?? Note * Cecily Tamez: PERFORM Event Display: Discharge/Transfer Note Hospital Authored Date: Nursing Discharge Note Entered On: 03/28/2024 14:43 EST Performed On: 03/28/2024 14:42 EST by Cecily Tamez Nursing Discharge Note 2 Discharge Time : 03/28/2024 14:35 EST Discharge Level of Care at Discharge : group home facility Discharge Nursing Homes/Rehab Facilities : [facility] Patient Left Unit Via : Wheelchair Patient Accompanied Off Unit with : Significant other DC Instructions Provided & Signed by Pt : Yes Patient Understands D/C Instructions : Yes Patient Instructions Discharge Signed : Yes Did Pt have Specialty Bed or Wound Vac : No Sg Tamezil - 03/28/2024 14:42 EST * Makayla Li: PERFORM Event Display: Discharge/Transfer Note Hospital Authored Date: Patient: ??GRETA BEARD ? Age:??63 Years?Sex:??Female?:??1960?? Patient Information Discharge Location: [facility] Primary Care Physician: Marita Wetzel DO Admit Date/Time: 03/23/2024 14:29 Discharge Disposition Discharge Disposition: Custodial Facility/Rehab Discharge Diagnosis General medical ([id number]) Acute on chronic kidney failure (N17.9) Transplant rejection (T86.91) Hypertension (I10) Diabetes mellitus (E11.9) Anemia of chronic kidney failure (N18.9) Chronic GERD (K21.9) Fracture of femoral neck, left (S72.002A) _ Discharge Medications Acetaminophen (acetaminophen 325 mg oral tablet)?650?Milligram?By Mouth?Every 6 hours?as needed?not to exceed 4000 mg/day?Pain , Moderate Amlodipine (AmLODipine Tablet)?10?Milligram?G Tube?Daily?By Mouth Carvedilol (carvedilol 25 mg oral tablet)?25?Milligram?1?tablet?By Mouth?2 times a day DiphenhydrAMINE (Benadryl 25 mg oral capsule)?1?capsule?25?Milligram?By Mouth?2 times a day?as needed?for itching Docusate (docusate sodium 100 mg oral tablet)?1?tab(s)?100?Milligram?By Mouth?2 times a day?as needed?Constipation?for 30?Days Epoetin Bassem (Procrit 10054 u/ml injectable solution)?See Instructions?Subcutaneous Injection Hydromorphone (Dilaudid 4 mg oral tablet)?1?tab(s)?4?Milligram?By Mouth?Every 4 hours?as needed?for pain Insulin Lispro (insulin lispro 100 units/mL injectable solution)?2-10 units?Subcutaneous Injection?3 times a day before meals?150 - 199 ??2 units ??Call if less than 70, 200 - 249 ??4 units, 250 - 299 ??6 units, 300 - 349 ??8 units, 350 - 399 ??10 units ??Call if greater than 400 Isosorbide Mononitrate (isosorbide mononitrate 30 mg oral tablet, extended release)?30?Milligram?By Mouth?Daily in AM Magnesium Oxide (magnesium oxide 400 mg oral tablet)?400?Milligram?By Mouth?2 times a day?for 3?Days Multivitamin (Nephro Vitamins oral tablet)?1?tab(s)?By Mouth?Daily Mycophenolate Sodium (mycophenolic acid 360 mg oral delayed release tablet)?360?Milligram?By Mouth?2 times a day Pantoprazole (pantoprazole 40 mg oral delayed release tablet)?1?tab(s)?40?Milligram?By Mouth?Daily PredniSONE (predniSONE 5 mg oral tablet)?1.5?tab(s)?7.5?Milligram?By Mouth?Daily?for 30?Days Sertraline (sertraline 25 mg oral tablet)?1?tab(s)?25?Milligram?By Mouth?Daily sodium bicarbonate (sodium bicarbonate 650 mg oral tablet)?1,300?Milligram?By Mouth?2 times a day Sucralfate (Carafate 1 gm oral tablet)?1?gram?By Mouth?3 times a day before meals and bedtime Tacrolimus (tacrolimus 1 mg oral tablet, extended release)?2?Milligram?By Mouth?Daily before breakfast Tacrolimus (tacrolimus 4 mg oral tablet, extended release)?8?Milligram?By Mouth?Daily before breakfast ?? Medications Started Sucralfate (Carafate 1 gm oral tablet)?1?gram?By Mouth?3 times a day before meals and bedtime Magnesium Oxide (magnesium oxide 400 mg oral tablet)?400?Milligram?By Mouth?2 times a day?for 3?Days Medications Discontinued None Doses Changed TACROLIMUS INCREASED TO 10 MG DAILY Allergies Allergies ?(Active and Proposed Allergies Only) codeine? (Severity: Unknown severity, Onset: Unknown) ?Reactions: FAINTING/HIVES oxyCODONE? (Severity: Unknown severity, Onset: Unknown) ? Stroke Onset Details Service Categories #1: Occupational Therapy, Physical Therapy, Custodial ?? Future Appointments Friday 10:30 AM EDT ?? Where: [facility] Status: Pending Hospital Course Per admitting provider 63-year-old female with history of ESRD secondary to hypertension/diabetes status post DDKT (02/2022) on immunosuppression with mycophenolate, tacrolimus, prednisone, CKD stage V of allograft, chronic persistent T-cell rejection, hypertension, type 2 diabetes mellitus, anemia of chronic disease, history of ESBL Klebsiella pneumonia, history of carcinoid of appendix s/p resection, anxiety/depression, hypertension, GERD, recent fracture of left femoral neck status post left hip pinning 02/11/2024 sent to the emergency department from her rehab facility secondary to rising creatinine levels. ?? Patient has reportedly undergone several medication adjustments of her immunosuppression for the possibility of transplant rejection and the staff at her rehab facility were concerned given increasing creatinine levels and sent the patient to the emergency department to be evaluated by nephrology here.?? Labs that were sent in paperwork from facility revealed creatinine of 4.9 with a BUN of 51.??There is an additional lab draw showing creatinine of 2.66 with a BUN of 41, nonetheless a repeat blood work in the emergency department revealed creatinine of 4.37.?? Patient's last creatinine on 02/20/2024 was 3.07.?? Patient denies having any chest pain or shortness of breath, reports feeling a little tired however denies any fever or chills, no nausea or vomiting, no chest pain or shortness ofbreath, no abdominal pain, diarrhea, constipation or dysuria.?? Reports that she is adherent to hermedication regimen. Objective Assessment and Plan 63-year-old female with history of ESRD secondary to hypertension/diabetes status post DD KT (02/2022) on immunosuppression with mycophenolate, tacrolimus, prednisone, CKD stage V of allograft, chronic persistent T-cell rejection, hypertension, type 2 diabetes mellitus, anemia of chronic disease, history of ESBL Klebsiella pneumonia, history of carcinoid of appendix s/p resection, anxiety/depression, hypertension, GERD, recent fracture of left femoral neck status post left hip pinning 02/11/2024 sent to the emergency department from her rehab facility secondary to rising creatinine levels??and concern for transplant rejection. ?? Acute on chronic kidney failure (N17.9) Transplant rejection (T86.91) Patient with history of ESRD secondary to hypertension/diabetes status post DDKT (02/2022) on immunosuppression with mycophenolate, tacrolimus and prednisone, CKD stage V of allograft, chronic persistent T-cell rejection.??Concern for possible transplant rejection hence was brought to the emergencydepartment for further evaluation management.??Continues with improvement of her renal function, creatinine down to 3.2?today??(on admit 4.4); after receiving IV fluids and also was placed on Bicarb drip as per renal (has since been discontinued as bicarb back to normal). Immunosuppressant as per nephrology. Renal US showed??mild hydronephrosis of the transplanted kidney, persistently elevatedresistive indices, which can be seen in the setting of transplant rejection. Had been having??episodes of diarrhea, however C diff negative. CMV negative. Per Nephrology she will be continued on Prednisone 7.5 mg daily, Mycophenolate 360 mg twice daily, and her TACROLIMUS HAS BEEN INCREASED TO 10 MG DAILY. Continue protonix for GI prophylaxis. Patient is agreeable to discharge at this time.? Fracture of femoral neck, left (S72.002A):?? Status post??pinning??02/11/2024.??Butler removed at bedside by ortho team without issue during admission. Repeat x-rays of the left hip ordered by ortho. Patient should follow up in??4-6 weeks withDr.??Cristobal??at [facility] ([address] [place] [address]). May call [phone] to schedule follow up appointment or with questions/concerns after discharge. Please??contact [facility] with wound redness, drainage, increased pain, falls, change in alignment for a sooner follow up visit. ? Chronic/resolved medical conditions Chronic GERD (K21.9):??Continue??Protonix and Carafate Anemia of chronic kidney failure (N18.9):??noticed with mild decreased in H/H; no signs of bleeding. She was given 1 unit of PRBC yesterday with proper response. Hgb stable, will follow Diabetes mellitus (E11.9):?fasting glucose 120 today, stable. Monitor POC and cover with lispro SS Hypertension (I10):??Continue??Coreg, amlodipine, Imdur ? Discharge Planning:??Short term rehab ?? . Physical Exam Vital signs reviewed?? Constitutional:??Older female resting comfortably in a chair, alert/awake, cooperative, no apparent??CV or respiratory distress Cardiovascular:??S1 S2, RRR, no murmur Pulm:??Clear to auscultation bilaterally with good air entry throughout, no wheezes, rhonchi, rales. No use of accessory muscles Abdominal:??Bowel sounds x4 quadrants, soft, NT, ND, no guarding Extremities:??No edema??or tenderness b/l lower extremities Neuro:??Alert and oriented x3, moves all extremities spontaneously and independently, cranial nerves II through XII grossly intact Skin: Warm/dry, intact Psych:??Pleasant mood, normal affect, not anxious appearing [facility] Pending Results Add On Lab Order ordered on 03/23/2024 Add On Lab Order ordered on 03/24/2024 Add On Lab Order ordered on 03/24/2024 Add On Lab Order ordered on 03/25/2024 Basic Metabolic Panel ordered on 03/24/2024 Tacrolimus Level ordered on 03/24/2024 Transfuse RBCs ordered on 03/24/2024 Follow-Up Appointments Added Follow Up ?Time Frame ?Comments Damari MARROQUIN, Marita Rubin?2 to 3 weeks Patient Instructions You will go home with the following NEW medications: ?? Sucralfate (Carafate 1 gm oral tablet)?1?gram?By Mouth?3 times a day before meals and bedtime Magnesium Oxide (magnesium oxide 400 mg oral tablet)?400?Milligram?By Mouth?2 times a day?for 3?Days? The following medications were CHANGED : ? TACROLIMUS INCREASED TO 10 MG DAILY ?? The following medications were?? STOPPED: ?? None ?? Activity changes: -?As tolerated. ? Who to follow up with after being discharged from the hospital: -??Please follow up at your primary??care doctor's office in 1-2 weeks. Please make appointment with the clinic. - Please follow up with??[facility] as outpatient. Please call office to schedule appointment. ?? Reasons to immediately return to the emergency room or call 911: - You pass out or faint. - You develop any acute weakness or numbness in any part of the body. - You develop any acute??speech difficulty, swallowing problem,??vision problem.? -??You are having trouble breathing. - You develop swelling in any arm or a leg. - You are unable to tolerate fluids enough to stay hydrated. - You have any other concerns that you think require emergency management. Post Discharge Care Diet: ??Diabetic Diet ?? Activity: ??As tolerated ?? Prognosis: ??Good ?? Discharge ?03/28/24 11:48:00 EST ?Order Comment:?? Home Health Face to Face ^HomeHealthFTF Results Discharge Labs BLOOD BANK Blood Type A Positive ()?? 03/24/2024 08:18 Antibody Screen Negative ()?? 03/24/2024 08:18 RBC Unit ID [id number] ()?? 03/24/2024 12:37 RBC Available PT ()?? 03/24/2024 12:37 ?? BLOOD COUNT & DIFF WBC 10.3 k/mm3 ()?? 03/28/2024 05:23 RBC 2.61 m/mm3 (Low)?? 03/28/2024 05:23 Hgb 7.3 Gm/dL (Low)?? 03/28/2024 05:23 Hct 24.5 % (Low)?? 03/28/2024 05:23 MCV 93.9 femtoliters ()?? 03/28/2024 05:23 MCH 28.0 pg ()?? 03/28/2024 05:23 MCHC 29.8 Gm/dL (Low)?? 03/28/2024 05:23 Platelet Count 221 k/mm3 ()?? 03/28/2024 05:23 RDW-SD 59.7 femtoliters (High)?? 03/28/2024 05:23 MPV 9.6 femtoliters ()?? 03/28/2024 05:23 Nucleated RBC (Automated) 0.0 #/100 WBC'S ()?? 03/28/2024 05:23 Abs. NRBC 0.0 k/mm3 ()?? 03/28/2024 05:23 Abs. Neut 8.2 k/mm3 (High)?? 03/27/2024 05:27 Abs. Lymph 0.7 k/mm3 (Low)?? 03/27/2024 05:27 Abs. [place] 0.8 k/mm3 ()?? 03/27/2024 05:27 Abs. Eo 0.1 k/mm3 ()?? 03/27/2024 05:27 Abs. Baso 0.0 k/mm3 ()?? 03/27/2024 05:27 Neut % 82.5 % (High)?? 03/27/2024 05:27 Lymph % 7.4 % (Low)?? 03/27/2024 05:27 [place] % 7.7 % ()?? 03/27/2024 05:27 Eos % 0.6 % ()?? 03/27/2024 05:27 Baso % 0.1 % ()?? 03/27/2024 05:27 Imm Gran 1.7 % ()?? 03/27/2024 05:27 Abs. Imm Gran 0.2 k/mm3 ()?? 03/27/2024 05:27 ?? CHEM GENERAL Sodium 138 mmol/L ()?? 03/28/2024 05:23 Potassium 3.8 mmol/L ()?? 03/28/2024 05:23 Chloride 106 mmol/L ()?? 03/28/2024 05:23 Bicarbonate Level 19 mmol/L (Low)?? 03/28/2024 05:23 Anion Gap 13 ()?? 03/28/2024 05:23 Glucose Level 120 mg/dL (High)?? 03/28/2024 05:23 Glucose, POC 148 mg/dL (High)?? 03/28/2024 07:41 BUN 38 mg/dL (High)?? 03/28/2024 05:23 Creatinine-Blood 3.28 mg/dL (High)?? 03/28/2024 05:23 Estimated GFR Creatinine 15 ML/MIN/1.73 M2 ()?? 03/28/2024 05:23 Calcium 8.6 mg/dL ()?? 03/28/2024 05:23 Phosphorus 3.0 mg/dL ()?? 03/23/2024 04:17 Magnesium 1.2 mg/dL (Low)?? 03/27/2024 05:45 LDH 199 units/L ()?? 03/23/2024 04:17 Iron Level 33 mcg/dL ()?? 03/23/2024 04:17 Iron Binding Capacity, Unsaturated 62 mcg/dL (Low)?? 03/23/2024 04:17 Iron Binding Capacity, Estimated Total 95 mcg/dL (Low)?? 03/23/2024 04:17 % Iron Saturation 35 % ()?? 03/23/2024 04:17 Ferritin Level 4796 ng/mL (High)?? 03/25/2024 04:58 ? IMMUNOLOGY GENERAL Haptoglobin 344 mg/dL (High)?? 03/23/2024 04:17 ? SEROLOGY INF DISEASE C. Difficile Toxin by PCR NEGATIVE ()?? 03/24/2024 11:30 ? TOXICOLOGY/TDM Tacrolimus Level 5.2 ng/mL ()?? 03/28/2024 05:23 Mycophenolate Level 4.0 ??g/mL (High)?? 03/22/2024 19:00 ?? UA/URINALYSIS Appear/Color, Urine LIGHT YELLOW ()?? 03/24/2024 05:30 Specific Ruso, Urine 1.011 ()?? 03/24/2024 05:30 pH, Urine 7.5 ()?? 03/24/2024 05:30 Albumin, Urine 1+ (Abnormal)?? 03/24/2024 05:30 Glucose, Urine 1+ (Abnormal)?? 03/24/2024 05:30 Ketones, Urine NEGATIVE ()?? 03/24/2024 05:30 Bilirubin, Urine NEGATIVE ()?? 03/24/2024 05:30 Hemoglobin, Urine TRACE (Abnormal)?? 03/24/2024 05:30 Nitrite, Urine POSITIVE (Abnormal)?? 03/24/2024 05:30 Leukocyte, Urine 3+ (Abnormal)?? 03/24/2024 05:30 Urobilinogen NORMAL mg/dL ()?? 03/24/2024 05:30 WBC's, Urine >182 /HPF (High)?? 03/24/2024 05:30 RBC's, Urine 2 /HPF ()?? 03/24/2024 05:30 Bacteria HEAVY HPF (Abnormal)?? 03/24/2024 05:30 Squamous Epith 4 /HPF ()?? 03/24/2024 05:30 Transitional Epith <1 /HPF ()?? 03/24/2024 05:30 Hold Urine Culture Testing available 48 hours from time of collection. ()?? 03/24/2024 05:30 ? URINE OTHER Est Creatinine Clearance 13.44 mL/min ()?? 03/28/2024 06:14 ? VIROLOGY CMV Quant NEGATIVE ()?? 03/23/2024 10:48 CMV Quant Log TEST NOT PERFORMED ()?? 03/23/2024 10:48 ?? Blood Glucose Trend Glucose Level:??120 mg/dL??High (03/28/24 05:23:00) Glucose, POC:??148 mg/dL??High (03/28/24 07:41:00) Glucose, POC:??156 mg/dL??High (03/27/24 20:27:00) Glucose, POC:??206 mg/dL??High (03/27/24 16:09:00) ?? Microbiology ?? C.diff PCR, w Rfx Toxin/Ag?? Completed?? Source: Stool Body Site: ?? Collected Dt/Tm: 03/24/2024 11:30 Last Updated Dt/Tm: 03/24/2024 14:50 ?? CMV Quant Plasma?? Completed?? Source: Blood Body Site: ?? Collected Dt/Tm: 03/23/2024 10:48 Last Updated Dt/Tm: 03/24/2024 13:09 ? Image ?US Renal Transplant Doppler??03/22/2024 21:02 by Carmen Aguayo ?IMPRESSION: Mild hydronephrosis of the transplanted kidney. Persistently elevated resistive indices, which can be seen in the setting of transplant rejection. ?XR Hip w/Pelvis 2-3 View Left??03/26/2024 13:22 by Sintia Sarabia ?IMPRESSION: ORIF of left femoral neck fracture with 3 screws. The fracture appears well aligned. Moderate arthritic changes of both hips. ?Other Image ?EKG: Ventricular Rate: 58??BPM Atrial Rate: 58??BPM P-R Interval: 180??ms QRS Duration: 76??ms Q-T Interval: 438??ms QTC Calculation(Bazett): 429??ms P [place]: 63??degrees R [place]: -15??degrees T [place]: 37??degrees Poor data quality, interpretation may be adversely affected Sinus bradycardia Minimal voltage criteria for LVH, may be normal variant ( R in aVL ) Septal infarct , age undetermined Abnormal ECG When compared with ECG of 12-SEP-2023 01:12, Septal infarct is now Present ? Consult ?Renal Consult Note??03/23/2024 17:48 by Heather Kumar MD ?PLAN:? 1L of NS today, okay for discharge from nephrology perspective Cont tacrolimus??10??mg once a day, mycophenolate 360 mg twice a day, and prednisone 7.5 mg once a day. DSA pending, can be followed up outpatient ?? 35_ minutes spent on discharge * Aidee Arguelles RN: PERFORM, SIGN, VERIFY Event Display: Case Management Discharge Plan Authored Date: [id number] Patient: GRETA BEARD Age: 63 years Sex: Female : 1960 Associated Diagnoses: None Author: Aidee Arguelles RN Discharge Plan Case Management Discharge Plan : Case Management Discharge Plan Data 03/28/2024 11:31 EST Discharge Level of Care at Discharge group home facility Discharge [facility] Discharge Transportation Arranged Family Name of Agency #1 [facility] Service Categories #1 Occupational Therapy, Physical Therapy, Custodial Service Start Date and Time #1 03/28/2024 13:00 * Cecily Tamez: PERFORM Event Display: Patient Education/Instruction Authored Date: Inpatient Adult Discharge Instructions. [address] [address] Name: GRETA BEARD : 1960?? Visit: 03/23/2024 14:29?? Current Date: 03/28/2024 11:49 ?? Account: [id number]?? Inpatient Adult Discharge Instructions We would like to thank you for allowing us to assist you with your healthcare needs. The following includes patient education materials and information regarding your injury/illness. Our entire staffstrives to provide an excellent experience for our patients and their families. PLEASE ENSURE YOU FOLLOW-UP PER THE INSTRUCTIONS BELOW! ?? YOUR OPINION IS IMPORTANT TO US! Please complete the survey you may receive by mail or email. Your feedback will be used to make improvements to the healthcare experiences of our patients and their families. Surveys are administered by [employer] ?? If further treatment with your primary care physician or another doctor is recommended, it is important for you to keep the appointment. Call your primary care physician or return to the Emergency Department immediately if your condition worsens, fails to improve, or new symptoms develop. If you need to find a doctor, you can call [facility] [employer] Link for a referral at [phone] or toll free at [phone] or log in to [email or web address].. ?? [facility], in keeping with [facility] guidance, no longer requires face masks for staff, patientsor visitors in most situations. Similiar to time spent indoors at other locations, there is the chance that you were exposed to repiratory viruses during your time with us (such as flu or COVID-19). If you develop symptoms concerning for a viral respiratory infection, please seek testing (and treatment if indicated) from your medical provider or home test kit. ?? You can view and manage your care through the patient portal or by using a health care johnny of your choosing. [employer] is a website that allows you to securely view your medical information including your hospital discharge summary, office visit summaries, medications and follow-up visits. You can also request appointments, renew medications, and request access to your medical information using a health care johnny of your choosing, or just ask a question. You can enroll at [email or web address] or register during your next office visit. You have been discharged from [facility], Patient Care Unit: D6A??. If you have any questions regarding these instructions, including results of studies pending, afteryou leave, please call us and we will be happy to assist you 11/11. [facility] Your Care Team Attending Physician Indira Sadler MD?? Consulting Providers Indira Sadler MD?? Discharging Providers Buddy CRUZ, Makayla Castro Reason for Your Visit Pt coming from [facility] with assumed kidney failure, pt had kidney transplant one year ago, ?meds ineffective.?? Your Diagnosis Anemia of chronic kidney failure Chronic GERD Diabetes mellitus Fracture of femoral neck, left General medical Hypertension Transplant rejection Tests Performed Below is a partial list of the tests performed during your hospitalization. You may have had other tests and procedures not included in this list. Please discuss all test results with your provider. Basic Metabolic Panel BUN C diff PCR, w Rfx Toxin/Ag CBC CBC w/ Differential CMV Quant Plasma CREATININE ELECTROLYTES FERRITIN GLUCOSE POC HAPTOGLOBIN IRON & TIBC LDH Lytes Magnesium Level Mycophenolate Level PHOSPHORUS Tacrolimus Level Type and Screen Urinalysis w/hold for Urine Culture US Renal Transplant Doppler XR Hip w/Pelvis 2-3 View Left Add On Lab Order?? BUN?? Basic Metabolic Panel?? C.diff PCR, w Rfx Toxin/Ag (C diff PCR, w Rfx Toxin/Ag)?? CBC?? CBC w/ Differential?? CMV Quant Plasma?? Creatinine?? Electrolytes?? Ferritin?? Glucose POC?? Haptoglobin?? Iron + Iron Binding Capacity (IRON & TIBC)?? LDH?? Magnesium Level?? Mycophenolate Level?? Phosphorus Level (PHOSPHORUS)?? Tacrolimus Level?? Transfuse RBCs?? Type and Screen?? US Renal Transplant Doppler?? Urinalysis w/hold for Urine Culture?? XR Hip w/Pelvis 2-3 View Left?? Primary Care Provider Marita Wetzel DO? Advance Directive Health Care Proxy on File Yes - Health Care Proxy Yes - [facility]OL[facility] Discharge Vitals Temperature: 99 DegF Height: 168 cm Pulse Rate: 64 bpm Weight: 55.3 kg Respiratory Rate: 18 br/min Body Mass Index:??17.18 kg/m2??Low Systolic Blood Pressure:??158 mm Hg??High Body surface area: 1.5 Systolic Blood Pressure:??158 mm Hg??High ?? Diastolic Blood Pressure:??53 mm Hg??Low ?? Diastolic Blood Pressure:??53 mm Hg??Low ?? Oxygen Saturation: 100 % ?? Studies Pending All studies ordered during this hospital stay have been completed unless listed below. Please discuss all pending results with your provider listed above in these instructions. ?? Add On Lab Order?? Basic Metabolic Panel?? Tacrolimus Level?? Transfuse RBCs?? What to do next Instructions From Your Doctor ?? Orders??:Diabetic Diet :As tolerated :Good? 03/28/24 11:48:00 EST?? Scheduled Follow-Up Appointments Friday 10:30 AM EDT ?? Where: [facility] Status: Pending You Need to Schedule the Following Appointments Follow Up with??Marita Wetzel DO Where: [address] [place] [address]- Discharge Medications GRETA BEARD :1960 Visit Date:03/23/2024 Medications: Please continue your medications until treatment is completed or stopped by your provider. Medications not listed below should be discontinued. Discuss any questions related to medications with your provider. What How Much When Instructions Next Dose New Magnesium Oxide (magnesium oxide 400 mg oral tablet) 400 Milligram Oral Twice a day Duration: 3 Days 03/28 at 9pm New Sucralfate (Carafate 1 gm oral tablet) 1 gram Oral 3 times a day before meals and bedtime 03/28 before dinner Changed Tacrolimus (tacrolimus 1 mg oral tablet, extended release) 2 Milligram Oral Daily before breakfast 03/29 before breakfast Changed Tacrolimus (tacrolimus 4 mg oral tablet, extended release) 8 Milligram Oral Daily before breakfast 03/29 before breakfast Unchanged Acetaminophen (acetaminophen 325 mg oral tablet) 650 Milligram Oral Every 6 hours as needed for Pain , Moderate not to exceed 4000 mg/ day ?? every 6 hours as needed Unchanged Amlodipine (AmLODipine Tablet) 10 Milligram Oral Daily 03/29 at 9am Unchanged Carvedilol (carvedilol 25 mg oral tablet) 1 tab(s) Oral Twice a day 03/28 at 9pm Unchanged DiphenhydrAMINE (Benadryl 25 mg oral capsule) 1 capsule Oral Twice a day as needed for for itching twice a day as needed Unchanged Docusate (docusate sodium 100 mg oral tablet) 1 tab(s) Oral Twice a day as needed for Constipation Duration: 30 Days twice a day as needed Unchanged Epoetin Bassem (Procrit 81347 u/ ml injectable solution) See instructions Subcutaneous Injection ?? Unchanged Hydromorphone (Dilaudid 4 mg oral tablet) 1 tab(s) Oral Every 4 hours as needed for for pain every 4 hours as needed Unchanged Insulin Lispro (insulin lispro 100 units/ mL injectable solution) 2-10 units Subcutaneous Injection 3 times a day before meals 150 - 199 ??2 units ??Call if less than 70, 200 - 249 ??4 units, 250 - 299 ??6 units, 300 - 349 ??8 units, 350 - 399 ??10 units ??Call if greater than 400 ?? Unchanged Isosorbide Mononitrate (isosorbide mononitrate 30 mg oral tablet, extended release) 30 Milligram Oral Daily in the morning 03/29 at 9am Unchanged Multivitamin (Nephro Vitamins oral tablet) 1 tab(s) Oral Daily 03/29 at 9am Unchanged Mycophenolate Sodium (mycophenolic acid 360 mg oral delayed release tablet) 360 Milligram Oral Twice a day 03/28 at 9pm Unchanged Pantoprazole (pantoprazole 40 mg oral delayed release tablet) 1 tab(s) Oral Daily 03/29 at 9am Unchanged PredniSONE (predniSONE 5 mg oral tablet) 1.5 tab(s) Oral Daily Duration: 30 Days 03/29 at 9am Unchanged Sertraline (sertraline 25 mg oral tablet) 1 tab(s) Oral Daily 03/29 at 9am Unchanged sodium bicarbonate (sodium bicarbonate 650 mg oral tablet) 1,300 Milligram Oral Twice a day 03/28 at 9pm Prescription Given During Visit No new medications prescribed at time of discharge.?? Laboratory Results Below is a partial list of the most recent Laboratory test results done prior to this discharge. You may have had other tests and procedures not included in this list. Please discuss all test resultswith your provider. Est Creatinine Clearance - 13.44 mL/min (03/28/2024) RBC Available - PT (03/24/2024) RBC Unit ID - [id number] (03/24/2024) Basic Metabolic Panel (03/28/2024) ???Sodium - 138 mmol/L???Potassium - 3.8 mmol/L???Chloride - 106 mmol/L???Bicarbonate Level - 19 mmol/L???Anion Gap - 13???Glucose Level - 120 mg/dL???BUN - 38 mg/dL???Creatinine-Blood - 3.28 mg/dL???Estimated GFR Creatinine - 15 ML/MIN/1.73 M2???Calcium - 8.6 mg/dL BUN (03/26/2024) ???BUN - 42 mg/dL C diff PCR, w Rfx Toxin/Ag (03/24/2024) ???C. Difficile Toxin by PCR - NEGATIVE CBC (03/28/2024) ???WBC - 10.3 k/mm3???RBC - 2.61 m/mm3???Hgb - 7.3 Gm/dL???Hct - 24.5 %???MCV - 93.9 femtoliters???MCH - 28.0 pg???MCHC - 29.8 Gm/dL???Platelet Count - 221 k/mm3???RDW-SD - 59.7 femtoliters???MPV - 9.6 femtoliters???Nucleated RBC (Automated) - 0.0 #/100 WBC'S???Abs. NRBC - 0.0 k/mm3 CBC w/ Differential (03/27/2024) ???WBC - 9.9 k/mm3???RBC - 2.73 m/mm3???Hgb - 7.7 Gm/dL???Hct - 25.3 %???MCV - 92.7 femtoliters???MCH - 28.2 pg???MCHC - 30.4 Gm/dL???Platelet Count - 207 k/mm3???RDW-SD - 59.6 femtoliters???MPV - 10.2 femtoliters???Nucleated RBC (Automated) - 0.0 #/100 WBC'S???Abs. NRBC - 0.0 k/mm3???Abs. Neut - 8.2 k/mm3???Abs. Lymph - 0.7 k/mm3???Abs. [place] - 0.8 k/mm3???Abs. Eo - 0.1 k/mm3???Abs. Baso - 0.0 k/mm3???Neut % - 82.5 %???Lymph % - 7.4 %???[place] % - 7.7 %???Eos % - 0.6 %???Baso % - 0.1 %???Imm Gran- 1.7 %???Abs. Imm Gran - 0.2 k/mm3 CMV Quant Plasma (03/23/2024) ???CMV Quant - NEGATIVE???CMV Quant Log - TEST NOT PERFORMED CREATININE (03/26/2024) ???Creatinine-Blood - 3.65 mg/dL???Estimated GFR Creatinine - 13 ML/MIN/1.73 M2 ELECTROLYTES (03/26/2024) ???Sodium - 140 mmol/L???Potassium - 3.8 mmol/L???Chloride - 105 mmol/L???Bicarbonate Level - 23 mmol/L???Anion Gap - 12 FERRITIN (03/25/2024) ???Ferritin Level - 4796 ng/mL GLUCOSE POC (03/28/2024) ???Glucose, POC - 148 mg/dL HAPTOGLOBIN (03/23/2024) ???Haptoglobin - 344 mg/dL IRON & TIBC (03/23/2024) ???Iron Level - 33 mcg/dL???Iron Binding Capacity, Unsaturated - 62 mcg/dL???Iron Binding Capacity,Estimated Total - 95 mcg/dL???% Iron Saturation - 35 % LDH (03/23/2024) ???LDH - 199 units/L Lytes (03/25/2024) ???Sodium - 138 mmol/L???Potassium - 3.9 mmol/L???Chloride - 102 mmol/L???Bicarbonate Level - 23 mmol/L???Anion Gap - 13 Magnesium Level (03/27/2024) ???Magnesium - 1.2 mg/dL Mycophenolate Level (03/22/2024) ???Mycophenolate Level - 4.0 ??g/mL PHOSPHORUS (03/23/2024) ???Phosphorus - 3.0 mg/dL Tacrolimus Level (03/28/2024) ???Tacrolimus Level - 5.2 ng/mL Type and Screen (03/24/2024) ???Blood Type - A Positive???Antibody Screen - Negative Urinalysis w/hold for Urine Culture (03/24/2024) ???Appear/Color, Urine - LIGHT YELLOW???Specific Ruso, Urine - 1.011???pH, Urine - 7.5???Albumin, Urine - 1+???Glucose, Urine - 1+???Ketones, Urine - NEGATIVE???Bilirubin, Urine - NEGATIVE???Hemoglobin, Urine - TRACE???Nitrite, Urine - POSITIVE???Leukocyte, Urine - 3+???Urobilinogen - NORMAL???WBC's, Urine - >182 /HPF? ?RBC's, Urine - 2 /HPF? ?Bacteria - HEAVY? ?Squamous Epith - 4 /HPF? ?Transitional Epith - <1 /HPF? ?Hold Urine Culture - Testing available 48 hours from time of collection. You will be contacted within 72 hours with your results. Allergies (NKA means No Known Allergies) codeine??(FAINTING/HIVES) oxyCODONE Problems Active Problems??(20) Anemia of chronic kidney failure?? Carcinoid, of appendix?? Cholelithiasis?? Chronic kidney disease (CKD), stage IV (severe)?? CKD (chronic kidney disease), stage III?? -donor kidney transplant recipient?? ESRD on peritoneal dialysis?? Fatigue?? GERD (gastroesophageal reflux disease)?? GERD with esophagitis?? History of ESBL Klebsiella pneumoniae infection?? HLD (hyperlipidemia)?? HTN (hypertension)?? Immunosuppression due to drug therapy?? Insulin dependent type 2 diabetes mellitus?? Long-term insulin use in type 2 diabetes?? Metabolic acidosis?? Mood disorder?? Nausea & vomiting?? Underweight?? Education Materials Below is the list of Educational Leaflet Providered with your Discharge Instructions. Valuables and Belongings I fully understand and agree that [facility] accepts no responsibility for all my personal property including clothing, toilet articles, radios, jewelry, dentures, hearing aids, rings, money, or any other property that is in my possession or is brought to me after admission. I understand certain valuables may be placed in a hospital safe for a short period of time. I understand that the hospital is not liable for loss or damage due to accident, fire, or other natural occurrence while said property is in the safe. I accept full responsibility for any personal property that I keep with me, and will not hold the hospital responsible in case of loss or disappearance. I acknowledge that i have been encouraged to send valuables and belongings home. ?? No Valuables/Belongings: No valuables/belongings present Review of Valuable and Belonging List: With patient Date for Pt to Sign Valuables/Belongings: 03/26/24 20:06:00 ?? Other Discharge Information ? Case Management Discharge Plan?? Discharge Plan?? Discharge Agency Information?? Discharge Level of Care at Discharge: group home facility Name of Agency #1: [facility] [place] Discharge Transportation Arranged: Family Service Start Date and Time #1: 03/28/24 13:00:00 Discharge Nursing Homes/Rehab Facilities: [facility] [employer] Service Categories #1: Occupational Therapy, Physical Therapy, Custodial ?? Pulmonary Rehab Status?? Pulmonary Rehab Discharge Status?? Respiratory Rate: 18 br/min ? Common Emergency Awareness Tips IS IT A STROKE? Act FAST and Check for these signs: FACE Does the face look uneven? ARM Does one arm drift down? SPEECH Does their speech sound strange? TIME Call at any sign of stroke ?? Heart Attack Signs Chest discomfort: Most heart attacks involve discomfort in the center of the chest and lasts more than a few minutes, or goes away and comes back. It can feel like uncomfortable pressure, squeezing, fullness or pain. Discomfort in upper body: Symptoms can include pain or discomfort in one or both arms, back, neck, jaw or stomach. Shortness of breath: With or without discomfort. Other signs: Breaking out in a cold sweat, nausea, or lightheaded. Remember, MINUTES DO MATTER. If you experience any of these heart attack warning signs, call to get immediate medical attention! ?? Smoking can increase your chances of developing chronic health problems and can cause harmful effects to other family members in your house. If you smoke, you are strongly encouraged to quit. Please call [facility] [employer] Link at [phone] or [phone] ([phone]) or log in to [email or web address] for referrals to smoking cessation programs. ?? 697 Suicide & Crisis Lifeline is available 11/11 if you or someone you know needs to find a reason to keep living. By calling 368 you'll be connected to a skilled, trained counselor at a crisis center in your area. INPATIENT DISCHARGE INSTRUCTIONS SIGNATURE PAGE GRETA BEARD Location:[facility] Registration Date and Time:03/23/2024 14:29 EST Primary Care Physician: Marita Wetzel DO, Attending Physician: Indira Sadler MD, I CHIRAG GRETA, have received the above patient education materials/instructions and have verbalized understanding. If ambulance or transport services are being used I further acknowledge being given a choice of service. ?? If you need to contact me, please call me at this number: . Patient/Rack Puncher Name: Patient/Rack Puncher Signature: Relationship to Patient: Witness Name/Signature: Date: Patient Care team information Care Team Personnel Name: Naila Saucedo RN Position: [facility] RN Member Role: Primary Care Nurse Name: Heather Eagle RN Position: [facility] RN Member Role: Primary Care Nurse Name: Marita King RN Position: [facility] RN Member Role: Primary Care Nurse Name: Silvia Almazan RN Position: [facility] ED RN W/OE and Tasks Member Role: Primary Care Nurse Name: Patricia Olmedo RN Position: [facility] RN Member Role: Primary Care Nurse Name: Navya Chauhan RN Position: [facility] RN Member Role: Primary Care Nurse Name: Maritza Alvarez RN Position: [facility] RN Member Role: Primary Care Nurse Name: Rachel Rucker RN Position: [facility] RN Member Role: Primary Care Nurse Name: Melissa Jasso RN Position: [facility] RN Member Role: Primary Care Nurse Name: Criss Pete Position: [facility] RN Member Role: Primary Care Nurse Name: Gianni Pacheco RN Position: [facility] RN Member Role: Primary Care Nurse Name: Pauline Aguayo Position: [facility] Outreach Member Role: Lifetime Consulting Physician Name: Marita Thakur RN Position: [facility] RN Member Role: Primary Care Nurse Name: Lanie Ferrell RN Position: [facility] RN Member Role: Primary Care Nurse Name: Tristen Branch MD Position: [facility] ORACLE HYPERION CONSULTANT MD Member Role: Lifetime ORACLE HYPERION CONSULTANT Physician Name: Gena Jiang RN Position: [facility] RN Member Role: Primary Care Nurse Name: Geo Pitts LPN Position: [facility] RN Member Role: Primary Care Nurse Name: Sudhir Overton RN Position: [facility] RN Member Role: Primary Care Nurse Name: Sirisha Mccauley RN Position: [facility] RN Member Role: Primary Care Nurse Name: Marcelino Ramirez RN Position: [facility] RN Member Role: Primary Care Nurse Name: Madeleine Vizcarra RN Position: [facility] RN Member Role: Primary Care Nurse Name: Scottie Hunter RN Position: [facility] RN Member Role: Primary Care Nurse Name: Vicki Carson NP Position: [facility] Associate Professional Member Role: Lifetime Consulting Provider Address: [address] [facility] [place] [address]- [place] Tele[employer]: Name: Petros Lindquist MD Position: [facility] Renal MD Member Role: Lifetime Consulting Physician Address: [address] [facility] [place] [place] [address]- [place] [employer]: Name: Lashanda Reese RN Position: [facility] RN Member Role: Primary Care Nurse Name: Carmen Lucio RN Position: [facility] RN Member Role: Primary Care Nurse Name: Estefany Willis RN Position: [facility] RN Member Role: Primary Care Nurse Name: Miryam Amor RN Position: [facility] RN Member Role: Primary Care Nurse Name: Marita Wetzel DO Position: [facility] Outreach Member Role: PCP Address: [address] [place] [address]- [place] Tele[employer]: Name: Temi Lind RN Position: [facility] RN Member Role: Primary Care Nurse Name: De Valdovinos RN Position: [facility] RN Member Role: Primary Care Nurse Name: Chandrika Corbin RN Position: [facility] RN Member Role: Primary Care Nurse Name: Liliana Villalta RN Position: [facility] RN Member Role: Primary Care Nurse Name: Jerod Adames DO Position: [facility] Renal MD Member Role: Lifetime Consulting Physician Address: [address] [facility] [place] [address]- [place] Tele[employer]: Name: Breanna Walker RN Position: [facility] RN Member Role: Primary Care Nurse Name: Omayra Jeronimo RN Position: [facility] RN Member Role: Primary Care Nurse Name: Yany Cobb RN Position: [facility] RN Member Role: Primary Care Nurse Name: David Schmitt RN Position: [facility] RN Member Role: Primary Care Nurse Name: Madelaine Meyer RN Position: [facility] RN Member Role: Primary Care Nurse Name: Jeremiah Suarez RN Position: [facility] RN Member Role: Primary Care Nurse Name: Cecily Tamez Position: [facility] RN Member Role: Primary Care Nurse Name: Ishaan Saucedo Position: [facility] RN Member Role: Primary Care Nurse Name: Ivan Dominguez RN Position: [facility] RN Member Role: Primary Care Nurse Name: Keisha Phelps RN Position: [facility] RN Member Role: Primary Care Nurse Name: Cory Red MD Position: [facility] Outreach Member Role: Lifetime Consulting Physician Address: [address] [facility] [address] Telecom: Name: Samina Juarez RN Position: [facility] RN Member Role: Primary Care Nurse Name: Regina Hassan RN Position: [facility] RN Member Role: Primary Care Nurse Name: Lamonte Huynh RN Position: [facility] RN Member Role: Primary Care Nurse Name: Nuvia Crenshaw RN Position: [facility] RN Member Role: Primary Care Nurse Name: Twila Pfeiffer RN Position: [facility] RN Member Role: Primary Care Nurse Name: Cari Tabares RN Position: [facility] RN Member Role: Primary Care Nurse Name: Brian Washington RN Position: [facility] RN Member Role: Primary Care Nurse Name: Nadja Wilkes RN Position: [facility] RN Member Role: Primary Care Nurse Name: Yesenia Calderon RN Position: [facility] SN RN Member Role: Primary Care Nurse Name: Jose Francisco Magallanes MD Position: [facility] Renal MD Member Role: Lifetime Consulting Physician Address: [address] [facility] [place], [place] [address] Telecom: Name: Denise Major RN Position: [facility] RN Member Role: Primary Care Nurse Name: London Leong RN Position: [facility] OB RN Member Role: Primary Care Nurse Name: Nicolasa Riley RN Position: [facility] RN Member Role: Primary Care Nurse Name: Sameera Holloway RN Position: [facility] RN Member Role: Primary Care Nurse Name: Ariana Staton RN Position: [facility] RN Member Role: Primary Care Nurse Name: Marily Paula RN Position: [facility] RN Member Role: Primary Care Nurse Name: Sarita Jean Baptiste RN Position: [facility] RN Member Role: Primary Care Nurse Name: Michael Velez RN Position: [facility] RN Member Role: Primary Care Nurse Name: Samina Moeller RN Position: [facility] Hospital Lumber Hacker Member Role: Primary Care Nurse Care Team Related Persons Name: ARMIN BAILEY Name: ALFRED BEARD Name: JOSE G BEARD Name: SUNNY BEARD Name: SUNNY BEARD Insurance Providers Guarantor name: GRETA CHIRAG Health Plan Information #: 3 Payer: FOR LIFE MCR A ONLY Member Number: [id number] Policy Number: NA Group Number: [id number] Health Plan Information #: 4 Payer: FOR LIFE MCR A ONLY Member Number: [id number] Policy Number: NA Group Number: [id number] Health Plan Information #: 1 Payer: MEDICARE A INPT 25 Member Number: [id number] Policy Number: NA Group Number: NA Health Plan Information #: 5 Payer: PRIME Member Number: [id number] Policy Number: NA Group Number: [id number] Health Plan Information #: 2 Payer: MEDICARE PART B OUTPT Member Number: [id number] Policy Number: NA Group Number: NA
--- OUTSIDE RECORDS SUMMARY | 2024-04-07 08:36 | XMS_ITS | Encounter Summary ---
Author Name [facility] [place] [facility] [place] Address [address] [place] [id number] Selected Encounter This section includes the information on record at [place] for the Encounter. Date/Time Encounter Type Encounter Description Reason Provider Source Jun 17, 2023 01:16 PM HC PRO PHONE CALL 11-20 MIN TELEPHONE/ANCYELITZA Y ICD-10-CM Z71.0 Prsn encntr hlth serv to consult on behalf of another person PARISH KELSEY Encounter Template Text not used by [place] Assessments - Encounter Diagnoses This section includes the primary and secondary diagnoses documented for the Encounter. Date/Time Primary/Secondary Diagnosis Diagnosis Name Provider Source Jun 17, 2023 01:16 PM PRIMARY Prsn encntr hlth serv to consult on behalf of another person [facility] KEL[facility] Encounter Notes: All associated encounter notes This section contains the clinical notes associated to the Encounter. Date/Time Encounter Note(s) Provider Source Jun 17, 2023 01:16 PM CAREGIVER CERTIFIC ATE: LOCAL TITLE: [facility] TELEPHONE NOTE STANDARD TITLE: CAREGIVER CERTIFICATE DATE OF NOTE: JUN 17, 2023@13:16 ENTRY DATE: JUN 17, 2023@13:16:37 AUTHOR: PARISH KELSEY EXP COSIGNER: URGENCY: STATUS: COMPLETED Body Fitter called caregiver at [phone]. Body Fitter reached caregiver. Caregiver reviewed during the time that tag writer came to the family home in February of 2024 she was being treated for an infection that traveled to her brain. Caregiver reports she is now healed and continues to address any medical concerns associated with her Kidney transplant. Body Fitter requested to schedule a [facility] Wellness Assessment. Caregiver was amenable and said she will call tag writer on 06/26/23 to confirm her and 's availability for an appointment. Body Fitter was in agreement with this plan. /divine/ PARISH LEGGETT LCSW CAREGIVER SUPPORT BLOCKER AND SEWER Signed: 06/17/2023 13:39 [facility]
--- OUTSIDE RECORDS SUMMARY | 2024-04-07 08:37 | XMS_ITS ---
Author Name [facility] [place] Address [address] [place], [place] [id number] Selected Encounter This section includes the information on record at [place] for the Encounter. Date/Time Encounter Type Encounter Description Reason Provider Source Jul 08, 2023 01:18 PM [facility] ASSMT/REASSESSME CAREGIVER SUPPORT PROGRAM ICD-10-CM Z71.0 Prsn encntr hlth serv to consult on behalf of another person PAR[place] KELSEY Encounter Template Text not used by [place] Assessments - Encounter Diagnoses This section includes the primary and secondary diagnoses documented for the Encounter. Date/Time Primary/Secondary Diagnosis Diagnosis Name Provider Source Jul 08, 2023 01:26 PM PRIMARY Prsn encntr hlth serv to consult on behalf of another person [facility] Encounter Notes: All associated encounter notes This section contains the clinical notes associated to the Encounter. Date/Time Encounter Note(s) Provider Source Jul 08, 2023 01:18 PM CAREGIVER CERTIFIC ATE: LOCAL TITLE: [facility] WELLNESS CONTACT CAREGIVER STANDARD TITLE: CAREGIVER CERTIFICATE DATE OF NOTE: JUL 08, 2023@13:18 ENTRY DATE: JUL 08, 2023@13:19:04 AUTHOR: [place] KEL[place]Y EXP COSIGNER: URGENCY: STATUS: COMPLETED [facility] WELLNESS CONTACT CAREGIVER Has ADDENDA Date of Visit: 07/08/23 Length of Visit: ___10 min Full Name (last, first): _Greta Beard Full SSN: __[id number] Date of : __60 Method of contact: __ Telephone _x_ Telehealth / [facility] Video Connect Caregiver contact details: Best contact number for backup/emergency communication with caregiver (required): Phone number: # [phone] c# __ Other: __ Caregiver declined to provide emergency contact information Caregiver location during visit: _x_ Home address: [address] [place] [address] __ Other non-VA location __ Caregiver declined request to disclose current location If caregiver will not provide requested information: The caregiver must be made aware of the risks associated with not providing the information. The clinician must decide with the caregiver if the visit can continue without this information. The caregiver's understanding of the risks along with the clinician's plan to proceed or to use another care modality must be documented in the medical record. __x Others present for visit with caregiver's consent: Name: ___Sly Beard (/) Caregiver confirms location is private and safe for visit. _x_ Yes Visit conducted by clinical video telehealth: _x_Yes __No Caregiver verbal consent obtained. _x_Yes __No Location/emergency number confirmed. _x_Yes __No __VA facility __ In-Home CAREGIVER INFORMATION The caregiver is a: _x_ Primary Family Caregiver __ Secondary Family Caregiver __ Secondary #2 Family Caregiver Caregiver is providing care to: Name: Jeanmarie Beard Does the caregiver live with the [place]? _x_ Yes __ No Have there been any changes to the caregiver's address, telephone number or e-mail address? __ Yes Updates: _x_ No Is caregiver's contact information in electronic health record and the Caregiver Support Program IT system current? _x_ Yes __ No Updates: CAREGIVER ASSESSMENT How has your physical/mental/emotional health been lately? Have there been any changes (falls, ER visits, hospitalizations)? Details: No Falls nor ER visits reported CG had a kidney transplant on 03/19/22 CG reports she was last hospitalized for kidney related matters between 03/05/23-03/11/23 and was discharged to a rehab. CG reports she was discharged to her family home on 04/04/23. Physical health: CG reports, Much better. I just gotta get my brain back. Mentally - CG reports, It takes me a little longer to do math and stuff like that. I'm not as quick on my feet as I used to be. The doctor said it will eventually come back. CG did not recall meeting advertising copy writer via [facility] in the past. Emotionally: CG reports, I'm getting there. I'm getting there. I really am. With God. What current challenges or stressors do you have, if any? Details: Challenges/Stressors: CG reports, Just getting my energy level back up and of coarse Sly that's always a challenge. How are you coping with these issues? (discuss coping skills and support systems as appropriate, consider referral to mental health) Details: Coping Skills: CG reports her belief in God and her jordan is her primary form of coping. Social Support: CG identifies her brother as helpful and supportive when it comes to matters dealing with . CG reports her three sons have assisted her and this immensely when she has been sick. Do you feel comfortable and safe in your home environment? _x_ Yes __ No Details: What additional supports do you need to care for the , if any? (discuss respite services as appropriate) Details: Referral for the [facility] Legal services for and caregiver in order to obtain Simple Will Package (which include a simple will, durable power of compliance attorney, and advanced directive/living will) Request HISA anupam application in order to pursue making their bathroom handicap accessible in particular removing the bathtub and putting a walk in shower How can the Caregiver Support Program support you? What goals/needs can we assist you with? Details: Same as above SUMMARY OF VISIT/ACTION TAKEN Circuit Court Clerk met with and his /caregiver via [facility] for this [facility] Wellness Assessment. Caregiver reports she is currently medically stable and continues to get routine care with her nephrology team (CG had Kidney transplant in 03/19/2022). Caregiver reports when she was ill her three sons assisted her care and in the care of this . [place] reports being physically stable however caregiver noted continues to have chronic leg pain. [place] reports he is focused on losing weight. [place] describes at times being stressed out however noted his [place] mental health provider as a positive outlet. Caregiver recognizes the benefits of End of Life Planning and agreed to a [facility] legal referral for herself and this . Caregiver noted a need for a handicap accessible bathroom in particular a walk in shower. Circuit Court Clerk agreed to submit a request for a [facility] anupam referral from 's PCP team. PLAN: Next formal Contact with the [facility] will be in 120 days for the next Wellness Assessment. Caregiver and are aware that they can contact advertising copy writer with any further questions and or concerns. Circuit Court Clerk reviewed [facility] services including but not limited to Financial, legal, and mental health services. Circuit Court Clerk also informed CG of Aylin Mendenhall. CG declined all referrals with the exception of Legal Services for herself and this . Referrals: (check all that apply) __ CSL Education Calls __ REACH [facility] __ Building Better Caregivers __ Caregivers FIRST __ Community Caregiver Support Group __ [facility] Caregiver Support Group __ [facility] Mental Health Therapy __ Caregiver Health and Wellbeing Coaching __ Peer Support Mentoring __ Aylin Text __ Financial planning assistance __x Legal assistance __ Advance Care Planning Forms __ Other: /divine/ PARISH LEGGETT LCSW CAREGIVER SUPPORT PSYCHIATRIC SOCIAL WORKER SUPERVISOR Signed: 07/09/2023 08:18 07/09/2023 ADDENDUM STATUS: COMPLETED During this [facility] Wellness Assessment CG requested: Referral for the [facility] Legal services for and caregiver in order to obtain Simple Will Package (which include a simple will, durable power of compliance attorney, and advanced directive/living will) - Legal referral made on 07/09/23 Request HISA anupam application in order to pursue making their bathroom handicap accessible in particular removing the bathtub and putting a walk in shower - Circuit Court Clerk alerted 's PCP team request for a [facility]ISA anupam/OT referral on 07/09/23 /divine/ PARISH LEGGETT LCSW CAREGIVER SUPPORT PSYCHIATRIC SOCIAL WORKER SUPERVISOR Signed: 07/09/2023 08:19 [facility] KELSEY [facility]
--- OUTSIDE RECORDS SUMMARY | 2024-04-07 08:37 | XMS_ITS | Encounter Summary ---
Author Name Department [place] Organization [place] Address [address] [place] [id number] Selected Encounter This section includes the information on record at [place] for the Encounter. Date/Time Encounter Type Encounter Description Reason Provider Source Mar 24, 2024 12:25 PM HC PRO PHONE CALL 5-10 MIN TELEPHONE/ANCILLAR Y ICD-10-CM Z71.0 Prsn encntr hlth serv to consult on behalf of another person PARISH KELSEY Encounter Template Text not used by [place] Assessments - Encounter Diagnoses This section includes the primary and secondary diagnoses documented for the Encounter. Date/Time Primary/Secondary Diagnosis Diagnosis Name Provider Source Mar 24, 2024 12:25 PM PRIMARY Prsn encntr hlth serv to consult on behalf of another person PARISH KELSEY [place] [facility] [facility] Encounter Notes: All associated encounter notes This section contains the clinical notes associated to the Encounter. Date/Time Encounter Note(s) Provider Source Mar 24, 2024 12:25 PM CAREGIVER CERTIFIC ATE: LOCAL TITLE: CSP TELEPHONE NOTE STANDARD TITLE: CAREGIVER CERTIFICATE DATE OF NOTE: MAR 24, 2024@12:25 ENTRY DATE: MAR 24, 2024@12:25:27 AUTHOR: PARISH KELSEY EXP COSIGNER: URGENCY: STATUS: COMPLETED Burner Tender had telephone communication with both vet and cg. [place] provided an update with respects to his radiation tx. CG expressed concerns with this 's legs (cg states they give out on him ) and different therapeutic approaches they would like to take to support 's strength and weight loss. [place] reports he is tired. Burner Tender validated cg's statement and desire to decrease 's weight/improve his overall mobility. Burner Tender reviewed the radiation also causes fatigue. concurred and said he often doesn't have the physical strength to pursue some of the OT/PT related therapeutic exercises. Burner Tender supported dialogue regarding safety and stability and sx management (as previously CG noted had increase in irritability/anger). Burner Tender asked to obtain further summarized information during a home visit. Burner Tender, , and cg scheduled an in home CSP PCAFC and caregiver Wellness Assessment on 03/26/24 at 10:30am. /divine/ PARISH LEGGETT LCSW CAREGIVER SUPPORT SUPERINTENDENT MENAGERIE Signed: 03/24/2024 12:25 PAR[place] KELSEY [place] CNTRL [facility]
--- OUTSIDE RECORDS SUMMARY | 2024-04-07 08:37 | XMS_ITS | Encounter Summary ---
Author Name Department [place] Organization Department [place] Address [address] [place] [id number] Selected Encounter This section includes the information on record at [place] for the Encounter. Date/Time Encounter Type Encounter Description Reason Provider Source Jun 26, 2023 03:22 PM HC PRO PHONE CALL 11-20 MIN TELEPHONE/ANCILLAR Y ICD-10-CM Z71.0 Prsn encntr hlth serv to consult on behalf of another person PARISH KELSEY Encounter Template Text not used by [place] Assessments - Encounter Diagnoses This section includes the primary and secondary diagnoses documented for the Encounter. Date/Time Primary/Secondary Diagnosis Diagnosis Name Provider Source Jun 26, 2023 03:22 PM PRIMARY Prsn encntr hlth serv to consult on behalf of another person PAR[place] KELSEY [place] [facility] Encounter Notes: All associated encounter notes This section contains the clinical notes associated to the Encounter. Date/Time Encounter Note(s) Provider Source Jun 26, 2023 03:22 PM CAREGIVER CERTIFIC ATE: LOCAL TITLE: CSP TELEPHONE NOTE STANDARD TITLE: CAREGIVER CERTIFICATE DATE OF NOTE: JUN 26, 2023@15:22 ENTRY DATE: JUN 26, 2023@15:22:49 AUTHOR: PARISH KELSEY EXP COSIGNER: URGENCY: STATUS: COMPLETED Clinical Resource Director called and spoke to caregiver regrading stipend payments. Clinical Resource Director reviewed having received a DEUS message indicating caregiver was inquiring about her stipend payments. Clinical Resource Director asked if she contacted [employer] [place] as health science writer instructed. Caregiver confirmed she did contact [facility] and she was not who called the Caregiver Support Line. Caregiver reports her called without her awareness however he is not the one managing this matter. Clinical Resource Director confirmed having spoken to the gamigo [facility] and confirmed her caregiver stipend payments for the month of April and May (05/20/23 $848.25 & 06/17/23 $848.25). Caregiver reports she will discuss this matter further with her bank as she now has confirmation from [facility] made the caregiver deposits. Clinical Resource Director asked that she contact this health science writer with any further questions and or concerns. Caregiver was in agreement. /divine/ PARISH LEGGETT LCSW CAREGIVER SUPPORT DRAMATIC DIRECTOR Signed: 06/30/2023 09:12 [facility]
--- OUTSIDE RECORDS SUMMARY | 2024-04-07 08:37 | XMS_ITS ---
Author Name Department of [place] ([place]) Organization Department [place] Address [address] [place] [id number] Selected Encounter This section includes the information on record at [place] for the Encounter. Date/Time Encounter Type Encounter Description Reason Pro vider Source Nov 21, 2023 02:44 PM Outpatient Encounter ADMIN PAT ACTIVTIES (MASNONCT) IHE Encounter Template Text not used by [facility] Encounter Notes: All associated encounter notes This section contains the clinical notes associated to the Encounter. Date/Time Encounter Note(s) Provider Source Nov 21, 2023 02:44 PM CAREGIVER CERTIFIC ATE: LOCAL TITLE: CSP ADMINISTRATIVE NOTE STANDARD TITLE: CAREGIVER CERTIFICATE DATE OF NOTE: NOV 21, 2023@14:44 ENTRY DATE: NOV 21, 2023@14:44:56 AUTHOR: PARISH KELSEY EXP COSIGNER: URGENCY: STATUS: COMPLETED Mergers And Acquisitions Manager called caregiver at [phone]. Mergers And Acquisitions Manager did not reach caregiver on family home #. Mergers And Acquisitions Manager left a vm requesting this caregiver return this underwriter mortgage loan's call. Mergers And Acquisitions Manager called caregiver at [phone]. Mergers And Acquisitions Manager was not able to leave a vm as the mailbox was full. Mergers And Acquisitions Manager was not able to leave a vm. Mergers And Acquisitions Manager called the at [phone]. Mergers And Acquisitions Manager did not reach this . Mergers And Acquisitions Manager left a vm requesting a call in return. /divine/ PARISH LEGGETT LCSW CAREGIVER SUPPORT SHELL FISHERMAN Signed: 11/21/2023 14:46 [facility] KELSEY [facility]
--- OUTSIDE RECORDS SUMMARY | 2024-04-07 08:37 | XMS_ITS ---
Author Name Department of [place] ([place] Organization Department [place] Address [address] [place] [address] Selected Encounter This section includes the information on record at [place] for the Encounter. Date/Time Encounter Type Encounter Description Reason Provider Source Apr 02, 2024 09:35 AM [facility] ICD-10-CM Z71.0 Prsn encntr hlth serv to consult on behalf of another person PARISH KELSEY [facility] Encounter Template Text not used by [place] Assessments - Encounter Diagnoses This section includes the primary and secondary diagnoses documented for the Encounter. Date/Time Primary/Secondary Diagnosis Diagnosis Name Provider Source Apr 02, 2024 05:11 PM PRIMARY Prsn encntr hlth serv to consult on behalf of another person PARISH KELSEY [facility] [place] [facility]
--- OUTSIDE RECORDS SUMMARY | 2024-04-07 08:37 | XMS_ITS ---
Author Name Department of [place] Organization Department [place] Address [address] [place] [address] Selected Encounter This section includes the information on record at [place] for the Encounter. Date/Time Encounter Type Encounter Description Reason Provider Source Nov 25, 2023 12:18 PM HC PRO PHONE CALL 5-10 MIN TELEPHONE/ANCILLAR Y ICD-10-CM Z71.0 Prsn encntr hlth serv to consult on behalf of another person PARISH KELSEY Encounter Template Text not used by [place] Assessments - Encounter Diagnoses This section includes the primary and secondary diagnoses documented for the Encounter. Date/Time Primary/Secondary Diagnosis Diagnosis Name Provider Source Nov 25, 2023 12:18 PM PRIMARY Prsn encntr hlth serv to consult on behalf of another person [place] KELSE[place] [facility] Encounter Notes: All associated encounter notes This section contains the clinical notes associated to the Encounter. Date/Time Encounter Note(s) Provider Source Nov 25, 2023 12:18 PM CAREGIVER CERTIFIC ATE: LOCAL TITLE: CSP PCAFC WELLNESS CONTACT CAREGIVER STANDARD TITLE: CAREGIVER CERTIFICATE DATE OF NOTE: NOV 25, 2023@12:18 ENTRY DATE: NOV 25, 2023@12:19:17 AUTHOR: PARISH KELSEY EXP COSIGNER: URGENCY: STATUS: COMPLETED Date of Visit: 11/25/23 Length of Visit: ___10 min Full Name (last, first): Greta Garcia Full SSN: __[id number] Date of : __60 Method of contact: _x_ Telephone __ Telehealth / VA Video Connect Caregiver contact details: Best contact number for backup/emergency communication with caregiver (required): Phone number: # [phone] c# __ Other: __ Caregiver declined to provide emergency contact information Caregiver location during visit: _x_ Home address: [address] [place] [address] __ Other non-VA location __ Caregiver declined [...] Yes Visit conducted by clinical video telehealth: __Yes _x_No Caregiver verbal consent obtained. _x_Yes __No Location/emergency number confirmed. _x_Yes __No __VA facility __ In-Home CAREGIVER INFORMATION The caregiver is a: _x_ Primary Family Caregiver __ Secondary Family Caregiver __ Secondary #2 Family Caregiver Caregiver is providing care to: Name: Jeanmarie Beard Does the caregiver live with the ? _x_ Yes __ No Have there been [...] Details: No Falls nor ER visits reported Physical: CG had a kidney transplant on 03/19/22. CG reports she was last hospitalized in late June 2023, for four days and she states because, I needed fluids in my kidneys. Other than that I'm good. Mentally/Emotionally - CG reports, I'm getting there. I have my ups and downs. Bottle Cleaner explored and CG reports has increased his screaming at her and their adult son (who lives in the family home). CG reports 's anger/verbal outbursts are more directed towards her. CG reports, He screams a lot. As CG voiced above mentioned concerns in 's presence, data analyst report writer explored 's impression of CG's statements. associated anger episodes with PTSD sx, acknowledged CGs statement, and agreed to consider couple's counseling. What current challenges or stressors do you have, if any? Details: Challenges/Stressors: CG reports 's unwanted PTSD sx are her biggest challenge/stressor. How are you coping with these issues? [...] reports her three sons have assisted her in caring for the /. Do you feel comfortable and safe in your home environment? _x_ Yes __ No Details: What additional supports do you need to care for the , if any? (discuss respite services as appropriate) Details: agreed to consider accepting a referral for marriage counseling via [facility] clinical hub. How can the Caregiver Support Program support you? What goals/needs can we assist you with? Details: Same as above SUMMARY OF VISIT/ACTION TAKEN Bottle Cleaner met with and his /caregiver via phone to complete this [facility] Wellness Assessment. Caregiver reports she is currently medically stable and continues to get routine care with her nephrology team (CG had Kidney transplant in 03/2022). Apex reports he was dx with Prostate CA in June of 2023 and is scheduled to start radiation tx. [facility] reports ongoing leg/back pain and increase in urination which can interfere with his sleep. Emotionally cg reports this has had an increase in verbal outbursts, in particular towards her. Vet associates these outbursts as part of his PTSD sx. Vet agreed to consider a referral for couple's counseling. Caregiver reports she continues to assist with IADLs and remains in stable health to support this 's care. PLAN: Next formal Contact with the [facility] will be in 120 days for the next Wellness Assessment. Caregiver and are aware that they can contact data analyst report writer with any further questions and or concerns. Referrals: (check all that apply) __ CSL Education Calls __ REACH [facility] __ Building Better Caregivers __ Caregivers FIRST __ Community Caregiver Support Group __ VA Caregiver Support Group __ VA Mental Health Therapy __ Caregiver Health and Wellbeing Coaching __ Peer Support Mentoring __ Aylin Text __ Financial planning assistance __ Legal assistance __ Advance Care Planning Forms __ Other: /divine/ PARISH LEGGETT LCSW CAREGIVER SUPPORT UX CONSULTANT Signed: 12/02/2023 15:54 PAR[place] KELSEY [place] CNTREsvin [facility]
--- OUTSIDE RECORDS SUMMARY | 2024-04-07 08:37 | XMS_ITS | Encounter Summary ---
Author Name Department of [place] ([place]) Organization Department [place] Address [address] [place] [address] Selected Encounter This section includes the information on record at [place] for the Encounter. Date/Time Encounter Type Encounter Description Reason Pro vider Source Feb 05, 2024 10:06 AM Outpatient Encounter ADMIN PAT ACTIVTIES (MASNONCT) IHE Encounter Template Text not used by [place] Encounter Notes: All associated encounter notes This section contains the clinical notes associated to the Encounter. Date/Time Encounter Note(s) Provider Source Feb 05, 2024 10:06 AM CAREGIVER CERTIFICATE: LOCAL TITLE: CSP ADMINISTRATIVE NOTE STANDARD TITLE: CAREGIVER CERTIFICATE DATE OF NOTE: FEB 05, 2024@10:06 ENTRY DATE: FEB 05, 2024@10:06:43 AUTHOR: PARISH KELSEY COSIGNER: URGENCY: STATUS: COMPLETED Communications Tech had telephone communication with this . Communications Tech and discussed his challenges with comprehension and memory. Communications Tech and discussed neuropsychological assessment to assess for any cognitive disorders. Communications Tech found had a neuropsychological assessment in 2016, and diagnosed with neurocognitive disorder. reports he has delfina taking GALANTAMINE SA CAP,SA 8MG, since that time to assist with memory problems. With hopes of involving his with medical care, and with 's consent, telegraphic typewriter operator called this 's via three way conversation and reviewed the above mentioned. Caregiver reports just today she was waiting for to go to an appointment. [place] reported he forgot. Both and caregiver were amenable for telegraphic typewriter operator to discuss this matter further with Dr. Sauer. CG finds 's memory is worse, is irritable/paranoid with family, and finds that he ongoing struggles with comprehension. Communications Tech agreed to inquire if a neuropsychological assessment is clinically indicated at this time as they both report 's unwanted cognitive sx have worsen over time. /divine/ CASSIDY GUIDOW CAREGIVER SUPPORT COTTON BUYER Signed: 02/05/2024 10:06 PARISH KELSEY CNTRL [facility]
--- OUTSIDE RECORDS SUMMARY | 2024-04-07 08:37 | XMS_ITS | Encounter Summary ---
Author Name Department of [place] Organization [place] Address [address] [place] [address] Selected Encounter This section includes the information on record at [place] for the Encounter. Date/Time Encounter Type Encounter Description Reason Provider Source Jul 10, 2023 02:30 PM HC PRO PHONE CALL 5-10 MIN TELEPHONE/ANCILLAR Y ICD-10-CM Z71.0 Prsn encntr hlth serv to consult on behalf of another person PARISH KELSEY Encounter Template Text not used by [place] Assessments - Encounter Diagnoses This section includes the primary and secondary diagnoses documented for the Encounter. Date/Time Primary/Secondary Diagnosis Diagnosis Name Provider Source Jul 10, 2023 02:30 PM PRIMARY Prsn encntr hlth serv to consult on behalf of another person PARISH KELSEY [place] [facility] [place] [facility] Encounter Notes: All associated encounter notes This section contains the clinical notes associated to the Encounter. Date/Time Encounter Note(s) Provider Source Jul 10, 2023 02:30 PM CAREGIVER CERTIFIC ATE: LOCAL TITLE: CSP TELEPHONE NOTE STANDARD TITLE: CAREGIVER CERTIFICATE DATE OF NOTE: JUL 10, 2023@14:30 ENTRY DATE: JUL 11, 2023@10:21:08 AUTHOR: PARISH KELSEY EXP COSIGNER: URGENCY: STATUS: COMPLETED Supervisor Payroll called caregiver at [phone]. Supervisor Payroll spoke to this caregiver/'s . Supervisor Payroll reviewed changes to [facility] PCAFC program. Supervisor Payroll noted new shared responsibilities with the [facility] PCAFC social work coordinators that will result in different members of the CSP team will be completing her and this 's CSP PCAFC Wellness Assessments. Caregiver expressed understanding regarding the above mentioned and were accepting of these changes. Caregiver is aware that she can contact this technical report writer with any further questions and or concerns. /divine/ PARISH LEGGETT LCSW CAREGIVER SUPPORT WOOD PREPARATION SUPERVISOR Signed: 07/11/2023 10:24 PAR[facility] KELSEY [facility]
--- OUTSIDE RECORDS SUMMARY | 2024-04-07 08:37 | XMS_ITS | Encounter Summary ---
Author Name Department of [place] Organization [place] Address [address] [place] [address] Selected Encounter This section includes the information on record at [place] for the Encounter. Date/Time Encounter Type Encounter Description Reason Provider Source Jun 25, 2023 08:40 AM HC PRO PHONE CALL 5-10 MIN TELEPHONE/ANCILLAR Y ICD-10-CM Z71.0 Prsn encntr hlth serv to consult on behalf of another person PARISH KELSEY Encounter Template Text not used by [place] Assessments - Encounter Diagnoses This section includes the primary and secondary diagnoses documented for the Encounter. Date/Time Primary/Secondary Diagnosis Diagnosis Name Provider Source Jun 25, 2023 08:40 AM PRIMARY Prsn encntr hlth serv to consult on behalf of another person PARISH KELSEY [place] [facility] [place] [facility] Encounter Notes: All associated encounter notes This section contains the clinical notes associated to the Encounter. Date/Time Encounter Note(s) Provider Source Jun 25, 2023 08:40 AM CAREGIVER CERTIFIC ATE: LOCAL TITLE: [facility] TELEPHONE NOTE STANDARD TITLE: CAREGIVER CERTIFICATE DATE OF NOTE: JUN 25, 2023@08:40 ENTRY DATE: JUN 26, 2023@11:53:40 AUTHOR: PARISH KELSEY EXP COSIGNER: URGENCY: STATUS: COMPLETED Collar Separator had telephone communication with 's /caregiver. Collar Separator and 's scheduled the [facility] and caregiver wellness assessment via [facility] on 07/08/23. 's /caregiver asked for help as she reports she hasn't received her monthly caregiver stipend payment for the month of April and May. Collar Separator asked that she contact [employer] for guidance on this matter. 's /caregiver said she was at an appointment and said film writer can text her the [facility] telephone number for further follow up. Collar Separator was in agreement. [facility] [phone] - contact information was sent to CG via text message as per her report. /divine/ PARISH LEGGETT LCSW CAREGIVER SUPPORT ARTILLERY OR NAVAL GUNFIRE OBSERVER Signed: 06/26/2023 12:01 PARISH KELSEY [facility]
--- OUTSIDE RECORDS SUMMARY | 2024-04-07 08:37 | XMS_ITS ---
Author Name Department of [place] ([place] Organization [place] Address [address] [place] [id number] Selected Encounter This section includes the information on record at [place] for the Encounter. Date/Time Encounter Type Encounter Description Reason Pro vider Source Mar 26, 2024 09:50 AM Outpatient Encounter ADMIN PAT ACTIVTIES (MASNONCT) IHE Encounter Template Text not used by VA Encounter Notes: All associated encounter notes This section contains the clinical notes associated to the Encounter. Date/Time Encounter Note(s) Provider Source Mar 26, 2024 09:50 AM CAREGIVER CERTIFIC ATE: LOCAL TITLE: CSP ADMINISTRATIVE NOTE STANDARD TITLE: CAREGIVER CERTIFICATE DATE OF NOTE: MAR 26, 2024@09:50 ENTRY DATE: MAR 26, 2024@10:33:35 AUTHOR: PARISH KELSEY EXP COSIGNER: URGENCY: STATUS: COMPLETED Brake Specialist received a call from the 's /caregiver. She reports she has to cancel today's scheduled home visit as she is still waiting for the doctor to see her. 's /caregiver agreed to contact news writer at a later time to reschedule. Brake Specialist was in agreement with this plan. /divine/ PARISH LEGGETT LCSW CAREGIVER SUPPORT HEALTHCARE RECEPTIONIST Signed: 03/26/2024 10:36 PARISH KELSEY [facility]
--- OUTSIDE RECORDS SUMMARY | 2024-04-07 08:37 | XMS_ITS | Encounter Summary ---
Author Name Department [place] Organization [place] Address [address] [place] [address] Selected Encounter This section includes the information on record at [place] for the Encounter. Date/Time Encounter Type Encounter Description Reason Pro vider Source Jan 20, 2024 09:15 AM Outpatient Encounter ADMIN PAT ACTIVTIES (MASNONCT) IHE Encounter Template Text not used by VA Encounter Notes: All associated encounter notes This section contains the clinical notes associated to the Encounter. Date/Time Encounter Note(s) Provider Source Jan 20, 2024 09:15 AM CAREGIVER CERTIFIC ATE: LOCAL TITLE: [facility] ADMINISTRATIVE NOTE STANDARD TITLE: CAREGIVER CERTIFICATE DATE OF NOTE: JAN 20, 2024@09:15 ENTRY DATE: JAN 20, 2024@09:16:16 AUTHOR: PARISH KELSEY COSIGNER: URGENCY: STATUS: COMPLETED Lead Cargo Mover received a call from this 's . She reports this has been irritable and short tempered with her. Brighton's reports this has not wanted to involve her with his outpatient radiation tx for prostate CA. Brighton's reports 's brother has received a kidney transplant, is undergoing prostate CA, and is on hospice. 's reports is close with his brother, he feels guilty that he hasn't been there for him, and is having a difficult with this news. Lead Cargo Mover validated her feelings and discussed couple's therapy option through the [facility] clinical hub should he ever be willing to try it. 's thanked underwriter solicitation director for this information. Brighton's reports she's grateful this has Dr. Hreron to talk to about his feelings. Lead Cargo Mover asked that 's consider accepting a [facility] clinical hub referral for individual counseling via [facility]. 's agreed to consider this referral option. /divine/ PARISH LEGGETT TRAIN ANNOUNCER CAREGIVER SUPPORT PUBLICATIONS DISTRIBUTION CLERK Signed: 01/20/2024 09:17 [facility] KELSEY [facility]
[2024-04-07 08:50] LABS: INTERNATIONAL NORM RATIO 1.2 (0.9-1.1); Mean Corpuscular HGB Conc 29.1 g/dl (31.0-35.0); Mean Corpuscular Hemoglobin 27.7 pg (27.0-33.0); Mean Corpuscular Volume 95.2 fL (80.0-98.0); Mean Platelet Volume 9.5 fL (9.4-12.3); Platelet Count 251 X10*3/uL (160-400); Prothrombin Time 13.8 SEC (10.9-12.4); Red Blood Count 2.31 X10*6/uL (4.20-5.50); Red Cell Distribution Width 16.7 % (11.0-16.0); White Blood Count 9.7 X10*3/uL (4.8-10.8)
[2024-04-07 08:52] LABS: Partial Thromboplastin Time 35.9 SEC (26.0-36.8)
[2024-04-07 08:54] LABS: Hemoglobin 6.4 g/dl (12.0-16.0)
[2024-04-07 09:05] LABS: Alanine Aminotransferase < 6 U/L (0-31); Albumin Level 2.4 g/dL (3.5-5.0); Alkaline Phosphatase 53 U/L (39-117); Anion Gap 14 (12-20); Aspartate Amino Transferase 16 U/L (5-31); Bilirubin Total 0.3 mg/dL (0.0-1.0); Blood Urea Nitrogen 60 mg/dL (9-16); Calcium 8.3 mg/dL (8.4-10.2); Carbon Dioxide 21 mmol/L (22-29); Chloride 108 mmol/L (96-108); Creatinine Clr Calc Pharmacy 13.2; Estimated Glomerular Filt Rate 10; Glucose Random 103 mg/dL (60-115); Potassium 4.5 mmol/L (3.3-5.1); Sodium 138 mmol/L (135-145); Total Protein 5.6 g/dL (6.5-8.0)
[2024-04-07 09:06] LABS: Band Neutrophils Percent 7 % (3-5); Basophils Abs Manual 0.1 X10*3/uL (0.0-0.2); Basophils Percent Manual 1 % (0-2); Lymphocytes Absolute Manual 0.4 X10*3/uL (1.2-4.9); Lymphocytes Percent Manual 4 % (20-40); Monocytes Absolute Manual 0.7 X10*3/uL (0.1-1.2); Monocytes Percent Manual 7 % (2-11); Neutrophils Absolute Manual 8.5 X10*3/uL (2.0-8.3); Neutrophils Percent Manual 81 % (45-73)
[2024-04-07 09:10] LABS: Hypochromasia 1+ (5-14) /OIF; Platelet Estimate NORMAL (NORMAL); Platelet Morphology Comment NORMAL; Polychromasia 1+ (0-2) /OIF; RBC Morphology NOTED; Schistocytes 1+ (0-2) /OIF
[2024-04-07] MEDS: HYDROmorphone HCl 1 MG/ML SYRINGE IVPUSH (13:41)
--- NOTE | 2024-04-07 14:28 | PHA.MEDREC ---
Pharmacy Consult ? Medication Reconciliation Pharmacy has completed the medication reconciliation, utilized list from [facility] [address].
[2024-04-07 17:34] LABS: Iron 10 mcg/dL (30-160); Lactate Dehydrogenase 178 U/L (122-220); Percent Iron Saturation 15 % (15-50); Total Iron Binding Capacity 67 mcg/dL (228-428); Unsaturated Iron Binding 57 ug/dL
--- NOTE | 2024-04-07 17:46 | P.HPHOSP_ITS ---
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 in ED hgb 6.4, creatinine 4.46 (was 3.1 on 03/28/24). ct chest with right lung consolidation and effusion, possible neoplasm. Patient reports 2 weeks of shortness of breath. Left hip pain. Also reporting 100 lb weight loss over the last year. Unintentional related to poor appetite. Denies fever, chest pain, chills, no obvious bleed. 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) Kidney transplant status History of appendectomy H/O cardiac catheterization Social History Alcohol intake: never Patient Tobacco Use Status: Never used Tobacco Advance Directives: No Advance Directives Information Provided: Yes Do you have a plan to hurt others: No Plan Meds Allergies Allergy/AdvReac Type Severity Reaction Status Date / Time codeine [CODEINE] Allergy Intermediate HIVES Verified 04/07/24 08:15 oxycodone [OXYCODONE] Allergy Intermediate HIVES Verified 04/07/24 08:15 Codeine Allergy Unknown hives and Uncoded 04/07/24 08:15 pruritus Active Medications: Current Medications Acetaminophen (Acetaminophen 325 Mg Tablet) 650 mg PO Q6H PRN PRN Reason: Pain, Mild (Pain Scale 1-3), fever or headache Amlodipine Besylate (Amlodipine Besylate 10 Mg Tablet) 10 mg PO DAILY [facility]; Protocol Bisacodyl (Bisacodyl 10 Mg Supp.Rect) 10 mg ND DAILY PRN PRN Reason: no result from MOM by next shift Calcium Carbonate (Calcium Carbonate 750 Mg Tab.Chew) 750 mg PO Q4H PRN PRN Reason: Heartburn Carvedilol (Carvedilol 25 Mg Tablet) 25 mg PO BID [facility]; Protocol Diphenhydramine HCl (Diphenhydramine Hcl 25 Mg Capsule) 25 mg PO BID PRN PRN Reason: itchiness Docusate Sodium (Docusate Sodium 100 Mg Capsule) 100 mg PO DAILY PRN PRN Reason: Constipation Glucose (Glucose Gel 15 Gm Gel..Gram.) 15 gm PO Q15M PRN; Protocol PRN Reason: per Hypoglycemia Standing Ord. Heparin Sodium (Porcine) (Heparin Sodium,Porcine 5,000 Unit/Ml Vial) 5,000 unit SUBCUT Q12H [facility] Hydromorphone HCl (Hydromorphone Hcl 0.5 Mg/0.5 Ml Syringe) 0.5 mg IVPUSH Q3H PRN; Protocol PRN Reason: Pain, Severe (Pain Scale 7-10) Dextrose (D10) 250 mls @ 750 mls/hr IV Q15M PRN; Protocol PRN Reason: per Hypoglycemia Standing Ord. Insulin Human Lispro (Insulin Lispro 100 Unit/Ml 3 Ml Vial) 0 unit SUBCUT QIDACHS [facility]; Protocol Isosorbide Mononitrate (Isosorbide Mononitrate 30 Mg Tab.Er.24h) 30 mg PO DAILY [facility]; Protocol Magnesium Hydroxide (Milk Of Magnesia 30 Ml Oral.Susp) 30 ml PO DAILY PRN PRN Reason: Constipation Melatonin (Melatonin 3 Mg Tablet) 6 mg PO BEDTIME PRN PRN Reason: Insomnia Multivitamins/Vitamin C (Multivitamin Tablet) 1 tab PO DAILY [facility] Non-Formulary Medication (Hydromorphone) 4 mg PO Q4H PRN PRN Reason: Pain, Moderate(Pain Scale 4-6) Non-Formulary Medication (Mycophenolate Sodium) 360 mg PO BID [facility] Non-Formulary Medication (Pantoprazole) 40 mg PO DAILY@0630 [facility] Non-Formulary Medication (Tacrolimus) 10 mg PO DAILY [facility] Prednisone (Prednisone 2.5 Mg Tablet) 7.5 mg PO DAILY [facility] Sertraline HCl (Sertraline Hcl 25 Mg Tablet) 25 mg PO DAILY [facility] Sodium Bicarbonate (Sodium Bicarbonate 650 Mg Tablet) 1,300 mg PO BID [facility] Sodium Chloride (0.9 % Sodium Chloride Flush 3 Ml Syringe) 3 ml IVFLUSH QSHIFT [facility] Sucralfate (Sucralfate 1 Gm Tablet) 1 gm PO QIDACHS [facility] Home Medications ?Medication ?Instructions ?Recorded ?Confirmed ?Last Taken ?Type epoetin natali 40,000 unit/mL 40,000 unit IV MO 12/31/23 04/07/24 Unknown History injection solution (Procrit) acetaminophen 325 mg tablet 650 mg PO Q4H PRN Mild Pain (Scale 04/07/24 04/07/24 Unknown History Score 1-4) acetaminophen 325 mg tablet 650 mg PO Q6H PRN Fever 04/07/24 04/07/24 Unknown History bisacodyl 10 mg rectal suppository 10 mg ND DAILY PRN no result from 04/07/24 04/07/24 Unknown History (Dulcolax (bisacodyl)) MOM by next shift carvedilol 25 mg tablet 25 mg PO BID 04/07/24 04/07/24 Unknown History dextrose 40 % oral gel 20 g PO Q15M PRN BG less than 70 04/07/24 04/07/24 Unknown History diphenhydramine HCl 25 mg tablet 25 mg PO BID PRN itchiness 04/07/24 04/07/24 Unknown History docusate sodium 100 mg capsule 100 mg PO DAILY PRN Constipation 04/07/24 04/07/24 Unknown History glucagon 1 mg injection kit 1 mg IM DAILY PRN BG less than 70 04/07/24 04/07/24 Unknown History hydromorphone 4 mg tablet 4 mg PO Q4H PRN moderate to severe 04/07/24 04/07/24 Unknown History pain insulin lispro 200 unit/mL (3 mL) 1 sliding scale dose subcut 04/07/24 04/07/24 Unknown History subcutaneous pen [facility] isosorbide mononitrate 30 mg 30 mg PO DAILY 04/07/24 04/07/24 Unknown History tablet,extended release 24 hr magnesium hydroxide 400 mg/5 mL 30 ml PO DAILY PRN no BM in 3 days 04/07/24 04/07/24 Unknown History oral suspension (Milk of Magnesia) mycophenolate sodium 360 mg 360 mg PO BID 04/07/24 04/07/24 Unknown History tablet,delayed release ondansetron HCl 4 mg tablet 4 mg PO Q8H PRN Nausea And Vomiting 04/07/24 04/07/24 Unknown History pantoprazole 40 mg tablet,delayed 40 mg PO DAILY@0630 04/07/24 04/07/24 Unknown History release prednisone 2.5 mg tablet 7.5 mg PO DAILY 04/07/24 04/07/24 Unknown History sertraline 25 mg tablet 25 mg PO DAILY 04/07/24 04/07/24 Unknown History sodium bicarbonate 650 mg tablet 1,300 mg PO BID 04/07/24 04/07/24 Unknown History sodium phosphates 19 gram-7 118 ml ND DAILY PRN if no result 04/07/24 04/07/24 Unknown History gram/118 mL enema (Fleet Enema) from dulcolax within 2 hours sucralfate 1 gram tablet 1 g PO QIDACHS 04/07/24 04/07/24 Unknown History tacrolimus 5 mg capsule,extended 10 mg PO DAILY 04/07/24 04/07/24 Unknown History release 24 hr vitamin B complex-vitamin C-folic 1 tab PO DAILY 04/07/24 04/07/24 Unknown History acid 0.8 mg tablet (Nephro Vitamins) Physical Exam 2 Vital Signs and Narrative: Vital Signs: Last Vital Signs Temp 97.6 F 04/07/24 15:06 Pulse 62 04/07/24 15:06 Resp 15 04/07/24 15:06 BP 129/62 04/07/24 15:06 Pulse Ox 98 04/07/24 15:06 O2 Del Method Room Air 04/07/24 15:06 BMI result Body Mass Index 26.1 General: AO X 3, in pain, ill-appearing, right eye blind Resp: Diminished on right side, no accessory muscles used CVS: S1,S2,RRR GI: soft, non tender, non distended Neuro: motor grossly intact, alert Psych: appropriate affect, appropriate insight Results Labs 04/07/24 08:38 04/07/24 08:38 Labs: Laboratory Results - last 24 hr 04/07/24 04/07/24 08:38 09:02 MCV 95.2 MCH 27.7 MCHC 29.1 L RDW 16.7 H Plt Count 251 D MPV 9.5 Immature Gran % (Auto) Cancelled Neut % (Auto) Cancelled Lymph % (Auto) Cancelled Sabine % (Auto) Cancelled Eos % (Auto) Cancelled Baso % (Auto) Cancelled Lymph # (Auto) Cancelled Sabine # (Auto) Cancelled Eos # (Auto) Cancelled Baso # (Auto) Cancelled Abs Immat Gran (auto) Cancelled Absolute Neuts (auto) Cancelled Absolute Nucleated RBC 0.000 Nucleated RBC % (auto) 0.0 Neutrophils % (Manual) 81 H Band Neutrophils % 7 H Lymphocytes % (Manual) 4 L Monocytes % (Manual) 7 Basophils % (Manual) 1 Abs Neuts (Manual) 8.5 H Lymphocytes # (Manual) 0.4 L Monocytes # (Manual) 0.7 Basophils # (Manual) 0.1 Platelet Estimate NORMAL Plt Morphology Comment NORMAL RBC Morphology NOTED Polychromasia 1+ (0-2) Hypochromasia 1+ (5-14) Schistocytes 1+ (0-2) PT 13.8 H INR 1.2 H APTT 35.9 Anion Gap 14 Estim Creat Clear Calc 13.2 Estimated GFR 10 Random Glucose 103 Calcium 8.3 L Iron 10 L TIBC 67 L % Saturation 15 Unsat Iron Binding 57 Total Bilirubin 0.3 AST 16 ALT < 6 Alkaline Phosphatase 53 Lactate Dehydrogenase 178 Total Protein 5.6 L Albumin 2.4 L Blood Type A Positive Antibody Screen NEGATIVE Crossmatch See Detail Imaging Radiologist's Impressions: Impressions Chest X-Ray 04/07/24 08:18 IMPRESSION: Right IJ line tip projects at the cavoatrial junction. There is no gross pneumothorax. Bilateral diffuse interstitial and airspace opacities with consolidative components in the [id number] right lung and possibly in the retrocardiac region, right greater than left. [id number] right pleural effusion. This study was presented today to April 07, 2024 for interpretation. Stat results provided at this time as requested by referring provider. Electronically signed by: Priscilla Urbina MD 04/07/2024 09:10 AM EST RP Chest CT 04/07/24 10:27 IMPRESSION: Stents of consolidative process in the right lung with at least moderate if not larger and pleural effusion. Neoplastic process related to the right hilum and right lower lung not excluded. Correlation with thoracentesis and/or bronchoscopy would be advised. Fleischner guidelines were followed. Electronically signed by: Wing Redman MD 04/07/2024 04:07 PM EST RP Assessment and Plan (1) (HFpEF) heart failure with preserved ejection fraction: Status: Acute Plan 63F PMH ESRD s/p DDKT (02/[address] bermudez), 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, HTN, hfpef, dm, anemia of chronic disease, carcinoid of appendix, mood disorder, recent left femoral neck fracture 02/11/24, sent in from SNF for anemia Acute on chronic anemia of chronic disease No obvious bleeding, check iron studies Transfusing 1 unit, monitor Right-sided effusion and opacity Thoracic eval, thoracentesis ordered Concern for malignancy versus organizing pneumonia Acute kidney injury on CKD 5 inpatient was rejected renal transplant Nephro eval Continue immunosuppressants Check renal ultrasound Monitor BNP Hypertension Continue amlodipine, carvedilol Diabetes Insulin sliding scale DVT prophylaxis with heparin subQ Full code Patient with severe anemia, right-sided opacity, acute kidney injury requiring interventions and close monitoring therefore expected require at least 2 midnights inpatient Quality Stroke Does the patient have a stroke diagnosis?: No VTE Prior VTE?: No VTE Risk Level:: Medical - moderate - high VTE Device Contraindication: Treatment Not Indicated VTE Drug Contraindication: N/A - Med Ordered
[2024-04-07] MEDS: HYDROmorphone HCl 0.5 MG/0.5 ML SYRINGE IVPUSH ×2 (17:50→22:58)
[2024-04-07 17:51] LABS: Glucose, Whole Blood 77 mg/dL (60-115)
[2024-04-07 19:03] LABS: Ferritin 8029 ng/mL (10-250)
[2024-04-07 20:20] LABS: Glucose, Whole Blood 81 mg/dL (60-115)
--- NOTE | 2024-04-07 21:04 | HO.SKINPHOTO ---
Location: coccyx Category: pressure Stage: II Length: Width: Depth: cm Location: Category: Stage: Length: Width: Depth: cm Location: Category: Stage: Length: Width: Depth: cm Location: Category: Stage: Length: Width: Depth: cm Location: Category: Stage: Length: Width: Depth: cm Location: Category: Stage: Length: Width: Depth: cm
[2024-04-07] MEDS: Sodium Bicarbonate 650 MG TABLET 1300 MG PO (22:17)
[2024-04-07] MEDS: Sucralfate 1 GM TABLET PO (22:17)
[2024-04-07] MEDS: carvediloL 25 MG TABLET PO (22:18)
[2024-04-07] MEDS: MYCOPHENOLATE SODIUM 360 MG 360 EACH PO (22:18)
[2024-04-08] VITALS (11 sets, daily range): BP systolic 110–156; BP diastolic 49–71; PULSE 55–69; RESP 10–26; TEMP 36.3–36.9; O2SAT 90–100; BMI 19.4
[2024-04-08] MEDS: Omeprazole 20 MG CAPSULE.DR PO (05:59)
[2024-04-08] MEDS: HYDROmorphone HCl 0.5 MG/0.5 ML SYRINGE IVPUSH ×4 (06:04→20:27)
[2024-04-08 06:52] LABS: Anion Gap 18 (12-20); Blood Urea Nitrogen 57 mg/dL (9-16); Calcium 8.6 mg/dL (8.4-10.2); Carbon Dioxide 17 mmol/L (22-29); Chloride 109 mmol/L (96-108); Estimated Glomerular Filt Rate 9; Glucose Random 74 mg/dL (60-115); Lactate Dehydrogenase 189 U/L (122-220); Potassium 4.5 mmol/L (3.3-5.1); Sodium 139 mmol/L (135-145)
[2024-04-08 07:05] LABS: Hematocrit 25.8 % (37.0-47.0); Hemoglobin 7.8 g/dl (12.0-16.0); Mean Corpuscular HGB Conc 30.2 g/dl (31.0-35.0); Mean Corpuscular Volume 92.5 fL (80.0-98.0); Mean Platelet Volume 9.8 fL (9.4-12.3); Platelet Count 271 X10*3/uL (160-400); Red Blood Count 2.79 X10*6/uL (4.20-5.50); Red Cell Distribution Width 17.3 % (11.0-16.0); White Blood Count 10.6 X10*3/uL (4.8-10.8)
[2024-04-08 07:23] LABS: Vitamin B12 737 pg/mL (200-900)
[2024-04-08 07:29] LABS: Glucose, Whole Blood 75 mg/dL (60-115)
--- NOTE | 2024-04-08 08:45 | HO.THORCONS ---
History of Present Illness Consult details Consult date: 04/08/24 Narrative: Patient was a 63-year-old female with a very intricate and complex past medical history with many comorbidities including renal transplant, hypertension, mood disorder carcinoid of the appendix, heart failure who was admitted because of feeling unwell, weight loss, none productive cough for 2 weeks time. Workup including [address] scan demonstrated right pleural effusion and question of a right lung consolidation/question of mass. Patient was been admitted to medical service for restorative measures. She denies any pleuritic chest pain. No significant shortness of breath/dyspnea. Appreciate Weight loss over the last year's time this unintended. 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) Kidney transplant status History of appendectomy H/O cardiac catheterization Social History Social History Household Members: Family Housing: House Do you presently have visiting nurse or other home services: No Alcohol intake: never Patient Tobacco Use Status: Never used Tobacco Meds Allergies Allergy/AdvReac Type Severity Reaction Status Date / Time codeine [CODEINE] Allergy Intermediate HIVES Verified 04/07/24 08:15 oxycodone [OXYCODONE] Allergy Intermediate HIVES Verified 04/07/24 08:15 Codeine Allergy Unknown hives and Uncoded 04/07/24 08:15 pruritus Active Medications: Current Medications Acetaminophen (Acetaminophen 325 Mg Tablet) 650 mg PO Q6H PRN PRN Reason: Pain, Mild (Pain Scale 1-3), fever or headache Amlodipine Besylate (Amlodipine Besylate 10 Mg Tablet) 10 mg PO DAILY [facility], [facility]; Protocol Bisacodyl (Bisacodyl 10 Mg Supp.Rect) 10 mg AZ DAILY PRN PRN Reason: no result from MOM by next shift Calcium Carbonate (Calcium Carbonate 750 Mg Tab.Chew) 750 mg PO Q4H PRN PRN Reason: Heartburn Carvedilol (Carvedilol 25 Mg Tablet) 25 mg PO BID [facility], [facility]; Protocol Last Admin: 04/07/24 22:18 Dose: 25 mg Diphenhydramine HCl (Diphenhydramine Hcl 25 Mg Capsule) 25 mg PO BID PRN PRN Reason: itchiness Docusate Sodium (Docusate Sodium 100 Mg Capsule) 100 mg PO DAILY PRN PRN Reason: Constipation Glucose (Glucose Gel 15 Gm Gel..Gram.) 15 gm PO Q15M PRN; Protocol PRN Reason: per Hypoglycemia Standing Ord. Heparin Sodium (Porcine) (Heparin Sodium,Porcine 5,000 Unit/Ml Vial) 5,000 unit SUBCUT Q12H [facility], [facility] Hydromorphone HCl (Hydromorphone Hcl 0.5 Mg/0.5 Ml Syringe) 0.5 mg IVPUSH Q3H PRN; Protocol PRN Reason: Pain, Severe (Pain Scale 7-10) Last Admin: 04/08/24 06:04 Dose: 0.5 mg Hydromorphone HCl (Hydromorphone Hcl 2 Mg Tablet) 4 mg PO Q4H PRN PRN Reason: Pain, Moderate(Pain Scale 4-6) Dextrose (D10) 250 mls @ 750 mls/hr IV Q15M PRN; Protocol PRN Reason: per Hypoglycemia Standing Ord. Insulin Human Lispro (Insulin Lispro 100 Unit/Ml 3 Ml Vial) 0 unit SUBCUT QIDACHS [facility], [facility]; Protocol Last Admin: 04/08/24 07:27 Dose: Not Given Isosorbide Mononitrate (Isosorbide Mononitrate 30 Mg Tab.Er.24h) 30 mg PO DAILY [facility]; Protocol Magnesium Hydroxide (Milk Of Magnesia 30 Ml Oral.Susp) 30 ml PO DAILY PRN PRN Reason: Constipation Melatonin (Melatonin 3 Mg Tablet) 6 mg PO BEDTIME PRN PRN Reason: Insomnia Multivitamins/Vitamin C (Multivitamin Tablet) 1 tab PO DAILY [facility] Pt Own ( Mycophenolate Sodium 360 Mg Tablet, Delayed Release (Dr/Ec)) 360 mg PO BID [facility] Last Admin: 04/07/24 22:18 Dose: 360 mg Pt Own( Envarsus 1mg Tablet,Extended Release 24hr) 10 mg PO DAILY [facility] Omeprazole (Omeprazole 20 Mg Capsule.) 20 mg PO DAILY@0630 [facility] Last Admin: 04/08/24 05:59 Dose: 20 mg Prednisone (Prednisone 2.5 Mg Tablet) 7.5 mg PO DAILY [facility] Sertraline HCl (Sertraline Hcl 25 Mg Tablet) 25 mg PO DAILY [facility] Sodium Bicarbonate (Sodium Bicarbonate 650 Mg Tablet) 1,300 mg PO BID [facility] Last Admin: 04/07/24 22:17 Dose: 1,300 mg Sodium Chloride (0.9 % Sodium Chloride Flush 3 Ml Syringe) 3 ml IVFLUSH QSHIFT [facility] Last Admin: 04/07/24 23:59 Dose: Not Given Sucralfate (Sucralfate 1 Gm Tablet) 1 gm PO QIDACHS [facility] Last Admin: 04/07/24 22:17 Dose: 1 gm Home Medications ?Medication ?Instructions ?Recorded ?Confirmed ?Last Taken ?Type epoetin natali 40,000 unit/mL 40,000 unit IV MO 12/31/23 04/07/24 Unknown History injection solution (Procrit) acetaminophen 325 mg tablet 650 mg PO Q4H PRN Mild Pain (Scale 04/07/24 04/07/24 Unknown History Score 1-4) acetaminophen 325 mg tablet 650 mg PO Q6H PRN Fever 04/07/24 04/07/24 Unknown History bisacodyl 10 mg rectal suppository 10 mg AZ DAILY PRN no result from 04/07/24 04/07/24 Unknown History (Dulcolax (bisacodyl)) MOM by next shift carvedilol 25 mg tablet 25 mg PO BID 04/07/24 04/07/24 Unknown History dextrose 40 % oral gel 20 g PO Q15M PRN BG less than 70 04/07/24 04/07/24 Unknown History diphenhydramine HCl 25 mg tablet 25 mg PO BID PRN itchiness 04/07/24 04/07/24 Unknown History docusate sodium 100 mg capsule 100 mg PO DAILY PRN Constipation 04/07/24 04/07/24 Unknown History glucagon 1 mg injection kit 1 mg IM DAILY PRN BG less than 70 04/07/24 04/07/24 Unknown History hydromorphone 4 mg tablet 4 mg PO Q4H PRN moderate to severe 04/07/24 04/07/24 Unknown History pain insulin lispro 200 unit/mL (3 mL) 1 sliding scale dose subcut 04/07/24 04/07/24 Unknown History subcutaneous pen [employer] isosorbide mononitrate 30 mg 30 mg PO DAILY 04/07/24 04/07/24 Unknown History tablet,extended release 24 hr magnesium hydroxide 400 mg/5 mL 30 ml PO DAILY PRN no BM in 3 days 04/07/24 04/07/24 Unknown History oral suspension (Milk of [employer]) mycophenolate sodium 360 mg 360 mg PO BID 04/07/24 04/07/24 Unknown History tablet,delayed release ondansetron HCl 4 mg tablet 4 mg PO Q8H PRN Nausea And Vomiting 04/07/24 04/07/24 Unknown History pantoprazole 40 mg tablet,delayed 40 mg PO DAILY@0630 04/07/24 04/07/24 Unknown History release prednisone 2.5 mg tablet 7.5 mg PO DAILY 04/07/24 04/07/24 Unknown History sertraline 25 mg tablet 25 mg PO DAILY 04/07/24 04/07/24 Unknown History sodium bicarbonate 650 mg tablet 1,300 mg PO BID 04/07/24 04/07/24 Unknown History sodium phosphates 19 gram-7 118 ml AZ DAILY PRN if no result 04/07/24 04/07/24 Unknown History gram/118 mL enema (Fleet Enema) from dulcolax within 2 hours sucralfate 1 gram tablet 1 g PO QIDACHS 04/07/24 04/07/24 Unknown History tacrolimus 5 mg capsule,extended 10 mg PO DAILY 04/07/24 04/07/24 Unknown History release 24 hr vitamin B complex-vitamin C-folic 1 tab PO DAILY 04/07/24 04/07/24 Unknown History acid 0.8 mg tablet (Nephro Vitamins) Physical Exam Vital Signs: Vital Signs: Last Vital Signs Temp 97.9 F 04/08/24 07:18 Pulse 69 04/08/24 07:18 Resp 16 04/08/24 07:18 BP 152/67 H 04/08/24 07:18 Pulse Ox 91 L 04/08/24 07:18 O2 Del Method Room Air 04/08/24 07:18 BMI result Body Mass Index 19.4 Const: Other: Patient was conversant in no acute respiratory distress. Chest: Other: Chest breath sounds bilaterally, diminished right base. Results Labs 04/08/24 05:58 04/08/24 05:58 Labs: Abnormal lab results 04/07/24 04/07/24 04/08/24 Range/Units 08:38 09:02 05:58 RBC 2.31 L 2.79 L D (4.20-5.50) X10*6/uL Hgb 6.4 L* 7.8 L D (12.0-16.0) g/dl Hct 22.0 L 25.8 L (37.0-47.0) % MCHC 29.1 L 30.2 L (31.0-35.0) g/dl RDW 16.7 H 17.3 H (11.0-16.0) % Neutrophils % (Manual) 81 H (45-73) % Band Neutrophils % 7 H (3-5) % Lymphocytes % (Manual) 4 L (20-40) % Abs Neuts (Manual) 8.5 H (2.0-8.3) X10*3/uL Lymphocytes # (Manual) 0.4 L (1.2-4.9) X10*3/uL PT 13.8 H (10.9-12.4) SEC INR 1.2 H (0.9-1.1) Chloride 109 H (96-108) mmol/L Carbon Dioxide 21 L 17 L (22-29) mmol/L BUN 60 H 57 H (9-16) mg/dL Creatinine 4.46 H* 4.93 H* (0.5-1.4) mg/dL Calcium 8.3 L (8.4-10.2) mg/dL Iron 10 L (30-160) mcg/dL TIBC 67 L (228-428) mcg/dL Ferritin 8029 H (10-250) ng/mL Total Protein 5.6 L (6.5-8.0) g/dL Albumin 2.4 L (3.5-5.0) g/dL Crossmatch See Detail Short CBC 04/07/24 04/08/24 Range/Units 08:38 05:58 WBC 9.7 10.6 (4.8-10.8) X10*3/uL Hgb 6.4 L* 7.8 L D (12.0-16.0) g/dl Hct 22.0 L 25.8 L (37.0-47.0) % Plt Count 251 D 271 (160-400) X10*3/uL BMP 04/07/24 04/08/24 08:38 05:58 Sodium 138 139 Potassium 4.5 4.5 Chloride 108 109 H Carbon Dioxide 21 L 17 L BUN 60 H 57 H Creatinine 4.46 H* 4.93 H* Calcium 8.3 L 8.6 Liver Function 04/07/24 Range/Units 08:38 Total Bilirubin 0.3 (0.0-1.0) mg/dL AST 16 (5-31) U/L ALT < 6 (0-31) U/L Alkaline Phosphatase 53 (39-117) U/L Albumin 2.4 L (3.5-5.0) g/dL All other labs normal. Assessment and Plan (1) Immunosuppression due to drug therapy: Status: Acute (2) History of ESBL Klebsiella pneumoniae infection: Status: Acute (3) Pleural effusion, right: Status: Acute Plan Patient had originally had order for thoracentesis but I changed this to ultrasound-guided pigtail catheter placement. Fluid should be sent for cytology, cultures, and chemistries. Further interventions and studies will be directed by the patient's clinical course and results of the above-mentioned procedure. This was discussed with the patient and she understands and agrees. All questions answered. Procedures Date of Service Date of Service: 04/08/24
[2024-04-08] MEDS: Sodium Bicarbonate 650 MG TABLET 1300 MG PO ×2 (08:54→20:02)
[2024-04-08] MEDS: Multivitamin TABLET 1 TAB PO (08:54)
[2024-04-08] MEDS: Sucralfate 1 GM TABLET PO ×3 (08:55→20:02)
[2024-04-08] MEDS: MYCOPHENOLATE SODIUM 360 MG 360 EACH PO (08:55)
[2024-04-08] MEDS: predniSONE 2.5 MG TABLET 7.5 MG PO (08:55)
[2024-04-08] MEDS: amLODIPine Besylate 10 MG TABLET PO (08:55)
[2024-04-08] MEDS: ENVARSUS 1 MG 10 EACH PO (08:55)
[2024-04-08] MEDS: carvediloL 25 MG TABLET PO ×2 (08:55→20:02)
[2024-04-08] MEDS: Isosorbide Mononitrate 30 MG TAB.ER.24H PO (08:55)
[2024-04-08] MEDS: 0.9 % Sodium Chloride Flush 3 ML SYRINGE IVFLUSH ×2 (09:02→15:46)
[2024-04-08] MEDS: Sertraline HCL 25 MG TABLET PO (09:05)
--- NOTE | 2024-04-08 09:20 | MHC.CM.PN ---
IMM delivered. Patient lives at home w/ her . However, admitted to [facility] from [facility]. Reports she has been there a few weeks for STR, s/p hip fx. Prior to STR was independent w/ ADL's. Now ambulating w/ walker. PCP Marita Wetzel DO HCP on file and verified. DP: Goal is return to STR @ [facility] via BLS. CM will continue to follow.
--- NOTE | 2024-04-08 09:25 | HO.PM.IMPN ---
Subjective Subjective Date of Service: 04/08/24 Interval History: still with left hip pain Physical Exam Vital Signs: Vital Signs: Last Vital Signs Temp 97.9 F 04/08/24 07:18 Pulse 69 04/08/24 07:18 Resp 16 04/08/24 07:18 BP 152/67 H 04/08/24 07:18 Pulse Ox 91 L 04/08/24 07:18 O2 Del Method Room Air 04/08/24 07:18 BMI result Body Mass Index 19.4 General: AO X 3, no acute distress, ill-appearing, right eye blind Resp: Diminished on right side, no accessory muscles used CVS: S1,S2,RRR GI: soft, non tender, non distended Neuro: motor grossly intact, alert Psych: appropriate affect, appropriate insight Objective Data Active Medications Acetaminophen (Acetaminophen 325 Mg Tablet) 650 mg PO Q6H PRN PRN Reason: Pain, Mild (Pain Scale 1-3), fever or headache Amlodipine Besylate (Amlodipine Besylate 10 Mg Tablet) 10 mg PO DAILY [facility]; Protocol Last Admin: 04/08/24 08:55 Dose: 10 mg Documented By: VIANEY Bisacodyl (Bisacodyl 10 Mg Supp.Rect) 10 mg UT DAILY PRN PRN Reason: no result from MOM by next shift Calcium Carbonate (Calcium Carbonate 750 Mg Tab.Chew) 750 mg PO Q4H PRN PRN Reason: Heartburn Carvedilol (Carvedilol 25 Mg Tablet) 25 mg PO BID [facility]; Protocol Last Admin: 04/08/24 08:55 Dose: 25 mg Documented By: VIANEY Diphenhydramine HCl (Diphenhydramine Hcl 25 Mg Capsule) 25 mg PO BID PRN PRN Reason: itchiness Docusate Sodium (Docusate Sodium 100 Mg Capsule) 100 mg PO DAILY PRN PRN Reason: Constipation Glucose (Glucose Gel 15 Gm Gel..Gram.) 15 gm PO Q15M PRN; Protocol PRN Reason: per Hypoglycemia Standing Ord. Heparin Sodium (Porcine) (Heparin Sodium,Porcine 5,000 Unit/Ml Vial) 5,000 unit SUBCUT Q12H [facility] Hydromorphone HCl (Hydromorphone Hcl 0.5 Mg/0.5 Ml Syringe) 0.5 mg IVPUSH Q3H PRN; Protocol PRN Reason: Pain, Severe (Pain Scale 7-10) Last Admin: 04/08/24 06:04 Dose: 0.5 mg Documented By: DESIREE Hydromorphone HCl (Hydromorphone Hcl 2 Mg Tablet) 4 mg PO Q4H PRN PRN Reason: Pain, Moderate(Pain Scale 4-6) Dextrose (D10) 250 mls @ 750 mls/hr IV Q15M PRN; Protocol PRN Reason: per Hypoglycemia Standing Ord. Insulin Human Lispro (Insulin Lispro 100 Unit/Ml 3 Ml Vial) 0 unit SUBCUT QIDACHS [facility]; Protocol Last Admin: 04/08/24 07:27 Dose: Not Given Documented By: VIANEY Non-Admin Reason: No Insulin Coverage Isosorbide Mononitrate (Isosorbide Mononitrate 30 Mg Tab.Er.24h) 30 mg PO DAILY [facility]; Protocol Last Admin: 04/08/24 08:55 Dose: 30 mg Documented By: VIANEY Magnesium Hydroxide (Milk Of Magnesia 30 Ml Oral.Susp) 30 ml PO DAILY PRN PRN Reason: Constipation Melatonin (Melatonin 3 Mg Tablet) 6 mg PO BEDTIME PRN PRN Reason: Insomnia Multivitamins/Vitamin C (Multivitamin Tablet) 1 tab PO DAILY [facility] Last Admin: 04/08/24 08:54 Dose: 1 tab Documented By: VIANEY Miranda Own ( Mycophenolate Sodium 360 Mg Tablet, Delayed Release (Dr/Ec)) 360 mg PO BID [facility] Last Admin: 04/08/24 08:55 Dose: 360 mg Documented By: VIANEY Pt Own( Envarsus 1mg Tablet,Extended Release 24hr) 10 mg PO DAILY [facility] Last Admin: 04/08/24 08:55 Dose: 10 mg Documented By: VIANEY Omeprazole (Omeprazole 20 Mg Capsule.) 20 mg PO DAILY@0630 [facility] Last Admin: 04/08/24 05:59 Dose: 20 mg Documented By: DESIREE Prednisone (Prednisone 2.5 Mg Tablet) 7.5 mg PO DAILY [facility] Last Admin: 04/08/24 08:55 Dose: 7.5 mg Documented By: VIANEY Sertraline HCl (Sertraline Hcl 25 Mg Tablet) 25 mg PO DAILY [facility] Last Admin: 04/08/24 09:05 Dose: 25 mg Documented By: VIANEY Sodium Bicarbonate (Sodium Bicarbonate 650 Mg Tablet) 1,300 mg PO BID [facility] Last Admin: 04/08/24 08:54 Dose: 1,300 mg Documented By: VIANEY Sodium Chloride (0.9 % Sodium Chloride Flush 3 Ml Syringe) 3 ml IVFLUSH QSHIFT [facility] Last Admin: 04/08/24 09:02 Dose: 3 ml Documented By: VIANEY Sucralfate (Sucralfate 1 Gm Tablet) 1 gm PO QIDACHS [facility] Last Admin: 04/08/24 08:55 Dose: 1 gm Documented By: VIANEY Labs 04/08/24 05:58 04/08/24 05:58 Labs: Laboratory Results - last 24 hr 04/07/24 04/07/24 04/07/24 08:38 09:02 17:49 MCV MCH MCHC RDW Plt Count MPV Absolute Nucleated RBC Nucleated RBC % (auto) Anion Gap Estim Creat Clear Calc Estimated GFR POC Glucose 77 Random Glucose Calcium Iron 10 L TIBC 67 L % Saturation 15 Unsat Iron Binding 57 Ferritin 8029 H Lactate Dehydrogenase 178 Vitamin B12 Folate Blood Type A Positive Antibody Screen NEGATIVE Crossmatch See Detail 04/07/24 04/08/24 04/08/24 20:16 05:58 07:17 MCV 92.5 MCH 28.0 MCHC 30.2 L RDW 17.3 H Plt Count 271 MPV 9.8 Absolute Nucleated RBC 0.000 Nucleated RBC % (auto) 0.0 Anion Gap 18 Estim Creat Clear Calc 10.0 Estimated GFR 9 POC Glucose 81 75 Random Glucose 74 Calcium 8.6 Iron TIBC % Saturation Unsat Iron Binding Ferritin Lactate Dehydrogenase 189 Vitamin B12 737 Folate 8.0 Blood Type Antibody Screen Crossmatch Assessment and Plan (1) Chronic kidney disease (CKD), stage IV (severe): Status: Acute Plan 63F [facility] ESRD s/p DDKT (02/[address] bermudez), 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, HTN, hfpef, dm, anemia of chronic disease, carcinoid of appendix, mood disorder, recent left femoral neck fracture 02/11/24, sent in from [facility] for anemia Acute on chronic anemia of chronic disease No obvious bleeding, iron studies c/w chronic disease Transfused 1 unit, monitor, improved appropriately Right-sided effusion and opacity Thoracic appreciated, chest tube ordered ordered Concern for malignancy versus organizing pneumonia Acute kidney injury on CKD 5 in patient with rejected renal transplant Nephro eval Continue immunosuppressants Check renal ultrasound Monitor BMP Hypertension Continue amlodipine, carvedilol Diabetes with hyperglycemia Insulin sliding scale DVT prophylaxis with heparin subQ Full code reason for continued hospitalization:working up effusion, shai Quality Stroke Does the patient have a stroke diagnosis?: No VTE Prior VTE?: No VTE Risk Level:: Medical - moderate - high VTE Device Contraindication: Treatment Not Indicated VTE Drug Contraindication: N/A - Med Ordered
--- NOTE | 2024-04-08 09:34 | PM.CNNEP ---
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 CT chest showed right lung consolidation, effusion, and question of neoplasm. Plan for thoracentesis. Nephrology consulted for POWER, history of renal transplant. pt reports had shortness of breath for a few weeks leading up to hospitalization states she has had a poor appetite over the last year and has unintentionally lost over 100 pounds. per report, 03/28/24 creatinine was 3.1 04/07/24 creatinine was 4.46 04/08 creatinine 4.93 potassium 4.5, calcium 8.9, CO2 17 (21 previous day) urine output 200mL recorded since yesterday- pt states she has been voiding regularly and thinks more than this morning taking tacrolimus 10mg PO daily, mycophenolate 360mg PO daily, as well as 7.5mg prednisone PO daily on sodium bicarb 1300mg PO BID H&H 6.4 & 22 on admission, received 1 unit pRBCs, 04/08 H&H is 7.8 & 25; iron levels low on 04/07 (10) pt states she is breathing comfortably she denies chest pain, abdominal pain, flank pain states she is voiding regularly and comfortably (per chart 200mL/last 24 hours, though pt states she has also been voiding in toilet). she denies constipation, states has loose stools/diarrhea periodically/chronically, she is unable to recall last BM whether here or at SNF Review of Systems Constitutional: Reports fatigue and Denies headache(s) Denies dizziness and Denies headache(s) Cardiovascular: Denies chest pain, Denies leg edema, Denies lightheadedness and Denies dyspnea Respiratory: Denies cough and Denies dyspnea Gastrointestinal: Denies abdominal pain, Denies constipation, Reports diarrhea, Denies nausea and Denies vomiting Genitourinary: Denies difficulty voiding, Denies dysuria, Denies flank pain and Denies urinary incontinence Musculoskeletal: Denies arthralgias and Denies joint swelling Skin/Breast: Denies rash Denies dizziness and Denies headache(s) Endocrine: Reports fatigue PMFSH Past Medical History Medical History HTN (hypertension) Mood disorder 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) Kidney transplant status History of appendectomy H/O cardiac catheterization Social History Social History Household Members: Family Housing: House Do you presently have visiting nurse or other home services: No Alcohol intake: never Patient Tobacco Use Status: Never used Tobacco service: No Meds Allergies Allergy/AdvReac Type Severity Reaction Status Date / Time codeine [CODEINE] Allergy Intermediate Hives and Verified 04/08/24 09:36 pruritus oxycodone [OXYCODONE] Allergy Intermediate HIVES Verified 04/07/24 08:15 Active Medications: Current Medications Acetaminophen (Acetaminophen 325 Mg Tablet) 650 mg PO Q6H PRN PRN Reason: Pain, Mild (Pain Scale 1-3), fever or headache Amlodipine Besylate (Amlodipine Besylate 10 Mg Tablet) 10 mg PO DAILY [facility]; Protocol Last Admin: 04/08/24 08:55 Dose: 10 mg Bisacodyl (Bisacodyl 10 Mg Supp.Rect) 10 mg GA DAILY PRN PRN Reason: no result from MOM by next shift Calcium Carbonate (Calcium Carbonate 750 Mg Tab.Chew) 750 mg PO Q4H PRN PRN Reason: Heartburn Carvedilol (Carvedilol 25 Mg Tablet) 25 mg PO BID [facility]; Protocol Last Admin: 04/08/24 08:55 Dose: 25 mg Diphenhydramine HCl (Diphenhydramine Hcl 25 Mg Capsule) 25 mg PO BID PRN PRN Reason: itchiness Docusate Sodium (Docusate Sodium 100 Mg Capsule) 100 mg PO DAILY PRN PRN Reason: Constipation Glucose (Glucose Gel 15 Gm Gel..Gram.) 15 gm PO Q15M PRN; Protocol PRN Reason: per Hypoglycemia Standing Ord. Heparin Sodium (Porcine) (Heparin Sodium,Porcine 5,000 Unit/Ml Vial) 5,000 unit SUBCUT Q12H [facility] Hydromorphone HCl (Hydromorphone Hcl 0.5 Mg/0.5 Ml Syringe) 0.5 mg IVPUSH Q3H PRN; Protocol PRN Reason: Pain, Severe (Pain Scale 7-10) Last Admin: 04/08/24 06:04 Dose: 0.5 mg Hydromorphone HCl (Hydromorphone Hcl 2 Mg Tablet) 4 mg PO Q4H PRN PRN Reason: Pain, Moderate(Pain Scale 4-6) Dextrose (D10) 250 mls @ 750 mls/hr IV Q15M PRN; Protocol PRN Reason: per Hypoglycemia Standing Ord. Insulin Human Lispro (Insulin Lispro 100 Unit/Ml 3 Ml Vial) 0 unit SUBCUT QIDACHS [facility]; Protocol Last Admin: 04/08/24 07:27 Dose: Not Given Isosorbide Mononitrate (Isosorbide Mononitrate 30 Mg Tab.Er.24h) 30 mg PO DAILY [facility]; Protocol Last Admin: 04/08/24 08:55 Dose: 30 mg Magnesium Hydroxide (Milk Of Magnesia 30 Ml Oral.Susp) 30 ml PO DAILY PRN PRN Reason: Constipation Melatonin (Melatonin 3 Mg Tablet) 6 mg PO BEDTIME PRN PRN Reason: Insomnia Multivitamins/Vitamin C (Multivitamin Tablet) 1 tab PO DAILY [facility] Last Admin: 04/08/24 08:54 Dose: 1 tab Pt Own ( Mycophenolate Sodium 360 Mg Tablet, Delayed Release (Dr/Ec)) 360 mg PO BID [facility] Last Admin: 04/08/24 08:55 Dose: 360 mg Pt Own( Envarsus 1mg Tablet,Extended Release 24hr) 10 mg PO DAILY [facility] Last Admin: 04/08/24 08:55 Dose: 10 mg Omeprazole (Omeprazole 20 Mg Capsule.Dr) 20 mg PO DAILY@0630 [facility] Last Admin: 04/08/24 05:59 Dose: 20 mg Prednisone (Prednisone 2.5 Mg Tablet) 7.5 mg PO DAILY [facility] Last Admin: 04/08/24 08:55 Dose: 7.5 mg Sertraline HCl (Sertraline Hcl 25 Mg Tablet) 25 mg PO DAILY [facility] Last Admin: 04/08/24 09:05 Dose: 25 mg Sodium Bicarbonate (Sodium Bicarbonate 650 Mg Tablet) 1,300 mg PO BID [facility] Last Admin: 04/08/24 08:54 Dose: 1,300 mg Sodium Chloride (0.9 % Sodium Chloride Flush 3 Ml Syringe) 3 ml IVFLUSH QSHIFT [facility] Last Admin: 04/08/24 09:02 Dose: 3 ml Sucralfate (Sucralfate 1 Gm Tablet) 1 gm PO QIDACHS [facility] Last Admin: 04/08/24 08:55 Dose: 1 gm Home Medications ?Medication ?Instructions ?Recorded ?Confirmed ?Last Taken ?Type epoetin natali 40,000 unit/mL 40,000 unit IV MO 12/31/23 04/07/24 Unknown History injection solution (Procrit) acetaminophen 325 mg tablet 650 mg PO Q4H PRN Mild Pain (Scale 04/07/24 04/07/24 Unknown History Score 1-4) acetaminophen 325 mg tablet 650 mg PO Q6H PRN Fever 04/07/24 04/07/24 Unknown History bisacodyl 10 mg rectal suppository 10 mg GA DAILY PRN no result from 04/07/24 04/07/24 Unknown History (Dulcolax (bisacodyl)) MOM by next shift carvedilol 25 mg tablet 25 mg PO BID 04/07/24 04/07/24 Unknown History dextrose 40 % oral gel 20 g PO Q15M PRN BG less than 70 04/07/24 04/07/24 Unknown History diphenhydramine HCl 25 mg tablet 25 mg PO BID PRN itchiness 04/07/24 04/07/24 Unknown History docusate sodium 100 mg capsule 100 mg PO DAILY PRN Constipation 04/07/24 04/07/24 Unknown History glucagon 1 mg injection kit 1 mg IM DAILY PRN BG less than 70 04/07/24 04/07/24 Unknown History hydromorphone 4 mg tablet 4 mg PO Q4H PRN moderate to severe 04/07/24 04/07/24 Unknown History pain insulin lispro 200 unit/mL (3 mL) 1 sliding scale dose subcut 04/07/24 04/07/24 Unknown History subcutaneous pen [employer]AS[employer]D isosorbide mononitrate 30 mg 30 mg PO DAILY 04/07/24 04/07/24 Unknown History tablet,extended release 24 hr magnesium hydroxide 400 mg/5 mL 30 ml PO DAILY PRN no BM in 3 days 04/07/24 04/07/24 Unknown History oral suspension (Milk of [employer] medical) mycophenolate sodium 360 mg 360 mg PO BID 04/07/24 04/07/24 Unknown History tablet,delayed release ondansetron HCl 4 mg tablet 4 mg PO Q8H PRN Nausea And Vomiting 04/07/24 04/07/24 Unknown History pantoprazole 40 mg tablet,delayed 40 mg PO DAILY@0630 04/07/24 04/07/24 Unknown History release prednisone 2.5 mg tablet 7.5 mg PO DAILY 04/07/24 04/07/24 Unknown History sertraline 25 mg tablet 25 mg PO DAILY 04/07/24 04/07/24 Unknown History sodium bicarbonate 650 mg tablet 1,300 mg PO BID 04/07/24 04/07/24 Unknown History sodium phosphates 19 gram-7 118 ml GA DAILY PRN if no result 04/07/24 04/07/24 Unknown History gram/118 mL enema (Fleet Enema) from dulcolax within 2 hours sucralfate 1 gram tablet 1 g PO QIDACHS 04/07/24 04/07/24 Unknown History tacrolimus 5 mg capsule,extended 10 mg PO DAILY 04/07/24 04/07/24 Unknown History release 24 hr vitamin B complex-vitamin C-folic 1 tab PO DAILY 04/07/24 04/07/24 Unknown History acid 0.8 mg tablet (Nephro Vitamins) Physical Exam Vital Signs: Last Vital Signs Temp 97.9 F 04/08/24 07:18 Pulse 69 04/08/24 07:18 Resp 16 04/08/24 07:18 BP 152/67 H 04/08/24 07:18 Pulse Ox 91 L 04/08/24 07:18 O2 Del Method Room Air 04/08/24 07:18 BMI result Body Mass Index 19.4 Const General: no acute distress, alert and awake Resp Effort & Inspection: normal respiratory effort and able to speak in complete sentences Auscultation: clear to auscultation bilaterally Cardio Jugular venous distension: no JVD Rate: regular rate Rhythm: regular rhythm Heart sounds: S1 normal heart sound present and S2 normal heart sound present GI Palpation (GI): Soft to palpation and nontender General: Yes no CVA tenderness Back/Spine/Pelvis Back: no CVA tenderness Skin Lesions: no lesions Rashes: no rashes Extrem General: No edema Results Lab Results 04/08/24 05:58 04/08/24 05:58 Lab results: Chemistry 04/07/24 04/08/24 08:38 05:58 Sodium 138 139 Potassium 4.5 4.5 Carbon Dioxide 21 L 17 L BUN 60 H 57 H Creatinine 4.46 H* 4.93 H* Calcium 8.3 L 8.6 Hematology 04/07/24 04/08/24 08:38 05:58 WBC 9.7 10.6 Hgb 6.4 L* 7.8 L D Plt Count 251 D 271 Assessment and Plan (1) Anemia of chronic kidney failure: Qualifiers: Chronic kidney disease stage: stage 5 (GFR < 15) Qualified Code(s): N18.5 - Chronic kidney disease, stage 5; D63.1 - Anemia in chronic kidney disease Status: Acute (2) Chronic kidney disease (CKD), stage IV (severe): Status: Acute Plan Patient most likely having progression of chronic renal disease; she is receiving aggressive immunosuppression in setting of worsening chronic unresponsive cellular rejection Given patient likely has lung malignancy (workup pending through thoracic surgery), will reduce mycophenolate by half to 180mg PO BID; continue tacrolimus as ordered, will check level probably declining renal transplant function, may need dialysis eventually no need for dialysis at this time; renal 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
--- NOTE | 2024-04-08 12:09 | PM.PROC ---
Brief Operative Note Date of procedure: 04/08/24 Pre-op diagnosis: Large loculated right pleural effusion Post-op diagnosis: same Procedure: US right chest tube Large loculated right pleural effusion seen. 12 fr drain placed. Serous fluid aspirated and sent for requested labs. No immediate complications.
[2024-04-08 12:30] LABS: MN% 15.6 %; PMN% 84.4 %
[2024-04-08 12:40] LABS: Glucose, Whole Blood 110 mg/dL (60-115)
[2024-04-08] MEDS: Lidocaine HCl 1 % MPF 5 ML VIAL 10 ML SUBCUT (12:45)
[2024-04-08 13:21] LABS: BF Shift QC OK YES
[2024-04-08] MEDS: Acetaminophen 325 MG TABLET 650 MG PO (14:34)
--- NOTE | 2024-04-08 15:45 | HO.WOUND ---
Wound Consult: Initial 63yr old?[place] [facility] [place] See progress notes and H&P for detailed history.? Wound consult placed for sacrum.? Patient agreeable to assessment and photo documentation.? Etiology: ??Present on Admission Measurements: cm x cm x cm Wound Bed: Drainage / Odor: Edges: ? Ksenia wound: ? No Induration, Fluctuance or Warmth noted Pain: Goals of Treatment: ? Recommendations: 1. Turn and Reposition every 2 hours and as needed for patient comfort.? Use pillows or wedges to support off loading positions. 2. Off Load all bony prominences with use of pillows and heel boots if needed.? Apply Preventative foams where needed. ? 3. Monitor for incontinence and moisture control, use barrier creams when needed for prevention and treatment. 4. Provide adequate and supplemental nutrition.? 5. Order or Continue low air loss mattress. 6. When applicable maintain blood glucose levels per Providers order. 7. Re-consult wound care Nurse for wound deterioration or wound changes.
--- NOTE | 2024-04-08 15:46 | HO.WOUND ---
Wound Consult: Initial 63yr old?female admitted to [facility] [place]07/24 - See progress notes and H&P for detailed history.? Wound consult placed for sacral wound POA.? Patient agreeable to assessment and photo documentation.? Patient reports she does not use briefs at home and the wound is improving over all. She reports foam dressing and or barrier cream she has used in the past. Brief removed at bedside - Purewick in use - readjusted for capture. Sacrum Etiology: ?Stage 2 Pressure Injury ?Present on Admission Wound Bed: central open area with partial thickness tissue loss Drainage / Odor: none noted Edges: ?irregular Ksenia wound: MASD - dry desquamation noted - concern for DTI in periwound - difficult to assess given patient skin pigmentation - direct care team to monitor for worsening No Induration, Fluctuance or Warmth noted Pain: tenderness reported Goals of Treatment: ? Foam dressing to aid in protection from friction and moisture and protect bony prominence Recommendations: 1. Turn and Reposition every 2 hours and as needed for patient comfort.? Use pillows or wedges to support off loading positions. 2. Off Load all bony prominences with use of pillows and heel boots if needed.? Apply Preventative foams where needed. ? 3. Monitor for incontinence and moisture control, use barrier creams when needed for prevention and treatment. 4. Provide adequate and supplemental nutrition.? 5. Continue low air loss mattress. 6. When applicable maintain blood glucose levels per Providers order. 7. Sacrum - Routine Cleansing with Ph balanced wipes, pat dry. Apply skin prep to periwound. Apply sacral foam dressing, change every 3 days and PRN. Re-consult wound care Nurse for wound deterioration or wound changes.
[2024-04-08 16:18] LABS: Glucose, Whole Blood 128 mg/dL (60-115)
[2024-04-08] MEDS: Heparin Sodium,Porcine 5,000 UNIT/ML VIAL 5000 UNIT SUBCUT (17:58)
[2024-04-08] MEDS: Mycophenolate Sodium 180 MG TABLET.DR PO (20:03)
[2024-04-08 20:08] LABS: Glucose, Whole Blood 293 mg/dL (60-115)
[2024-04-08] MEDS: Insulin Lispro 100 UNIT/ML 3 ML VIAL SUBCUT (20:27)
[2024-04-09 03:47] VITALS: BP 130/52; PULSE 62; RESP 18; TEMP 36.6; O2SAT 97
[2024-04-09] MEDS: HYDROmorphone HCl 0.5 MG/0.5 ML SYRINGE IVPUSH ×4 (04:44→16:15)
[2024-04-09] MEDS: Heparin Sodium,Porcine 5,000 UNIT/ML VIAL 5000 UNIT SUBCUT ×2 (04:47→17:18)
[2024-04-09] MEDS: Omeprazole 20 MG CAPSULE.DR PO (06:02)
[2024-04-09 06:16] LABS: Hematocrit 26.5 % (37.0-47.0); Hemoglobin 8.1 g/dl (12.0-16.0); Mean Corpuscular HGB Conc 30.6 g/dl (31.0-35.0); Mean Corpuscular Hemoglobin 28.5 pg (27.0-33.0); Mean Corpuscular Volume 93.3 fL (80.0-98.0); Mean Platelet Volume 10.2 fL (9.4-12.3); Platelet Count 290 X10*3/uL (160-400); Red Blood Count 2.84 X10*6/uL (4.20-5.50); Red Cell Distribution Width 17.2 % (11.0-16.0); White Blood Count 8.8 X10*3/uL (4.8-10.8)
[2024-04-09 06:43] LABS: Anion Gap 17 (12-20); Blood Urea Nitrogen 64 mg/dL (9-16); Calcium 8.7 mg/dL (8.4-10.2); Carbon Dioxide 18 mmol/L (22-29); Chloride 108 mmol/L (96-108); Creatinine Clr Calc Pharmacy 9.9; Estimated Glomerular Filt Rate 9; Glucose Random 105 mg/dL (60-115); Potassium 4.4 mmol/L (3.3-5.1); Sodium 139 mmol/L (135-145)
[2024-04-09 07:16] VITALS: BP 148/66; PULSE 56; RESP 16; TEMP 36.5; O2SAT 94
[2024-04-09 07:23] LABS: Glucose, Whole Blood 102 mg/dL (60-115)
[2024-04-09] MEDS: predniSONE 2.5 MG TABLET 7.5 MG PO (07:53)
[2024-04-09] MEDS: Isosorbide Mononitrate 30 MG TAB.ER.24H PO (07:54)
[2024-04-09] MEDS: Sodium Bicarbonate 650 MG TABLET 1300 MG PO ×2 (07:54→20:21)
[2024-04-09] MEDS: Sertraline HCL 25 MG TABLET PO (07:54)
[2024-04-09] MEDS: Sucralfate 1 GM TABLET PO ×4 (07:54→20:21)
[2024-04-09] MEDS: Multivitamin TABLET 1 TAB PO (07:55)
[2024-04-09] MEDS: ENVARSUS 1 MG 10 EACH PO (07:55)
[2024-04-09] MEDS: amLODIPine Besylate 10 MG TABLET PO (07:55)
[2024-04-09] MEDS: Mycophenolate Sodium 180 MG TABLET.DR PO ×2 (07:55→20:21)
--- NOTE | 2024-04-09 08:20 | P.PNNP_ITS ---
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 CT chest showed right lung consolidation, effusion, and question of neoplasm. Had large right loculated pleural effusion on US, chest tube placed by IR 04/08. Pleural fluid cultures pending. Nephrology consulted for POWER, history of renal transplant. pt reports had shortness of breath for a few weeks leading up to hospitalization states she has had a poor appetite over the last year and has unintentionally lost over 100 pounds. per report, 03/28/24 creatinine was 3.1 04/07/24 creatinine was 4.46 04/08 creatinine 4.93 04/09 creatinine 4.97 potassium 4.4, calcium 8.7, CO2 18 ) urine output 990mL over last 24 hours- pt states she has been voiding regularly without pain/difficulty. taking tacrolimus 10mg PO daily, mycophenolate 180mg PO daily (dose reduced by half 04/08) as well as 7.5mg prednisone PO daily on sodium bicarb 1300mg PO BID H&H 6.4 & 22 on admission, received 1 unit pRBCs, 04/08 H&H is 7.8 & 25; iron levels low on 04/07 (10) pt states she is breathing comfortably she denies chest pain, abdominal pain, flank pain - reports pain at chest tube site. states she is voiding regularly and comfortably she denies constipation, states has loose stools/diarrhea periodically/chronically Physical Exam 2 Vital Signs: Vital Signs: Last Vital Signs Temp 97.7 F 04/09/24 07:16 Pulse 56 04/09/24 07:16 Resp 16 04/09/24 07:16 BP 148/66 H 04/09/24 07:16 Pulse Ox 94 04/09/24 07:16 O2 Del Method Room Air 04/09/24 07:16 O2 Flow Rate 2 04/08/24 12:20 BMI result Body Mass Index 19.4 Const: General: no acute distress, alert and awake Resp: Effort & Inspection: normal respiratory effort and able to speak in complete sentences Auscultation: clear to auscultation bilaterally Cardio: Jugular venous distension: no JVD Rate: regular rate Rhythm: r egular rhythm Heart sounds: S1 normal heart sound present and S2 normal heart sound present GI: Palpation (GI): Soft to palpation and nontender : General: Yes no CVA tenderness Back/Spine/Pelvis: Back: no CVA tenderness Skin: Lesions: no lesions Rashes: no rashes Extrem: General: No edema Objective Data Labs 04/09/24 05:39 04/09/24 05:38 Labs: Laboratory Results - last 24 hr 04/08/24 04/08/24 04/08/24 12:00 12:33 16:14 WBC RBC Hgb Hct MCV MCH MCHC RDW Plt Count MPV Absolute Nucleated RBC Nucleated RBC % (auto) Sodium Potassium Chloride Carbon Dioxide Anion Gap BUN Creatinine Estim Creat Clear Calc Estimated GFR POC Glucose 110 128 H Random Glucose Calcium Peritoneal WBC 1.535 Peritoneal RBC < 0.002 Periton Neutrophils 85 Periton Lymphocytes 3 Peritoneal Monocytes 11 Peritoneal Other Cells 1 04/08/24 04/09/24 04/09/24 20:05 05:38 05:39 WBC 8.8 RBC 2.84 L Hgb 8.1 L Hct 26.5 L MCV 93.3 MCH 28.5 MCHC 30.6 L RDW 17.2 H Plt Count 290 MPV 10.2 Absolute Nucleated RBC 0.000 Nucleated RBC % (auto) 0.0 Sodium 139 Potassium 4.4 Chloride 108 Carbon Dioxide 18 L Anion Gap 17 BUN 64 H Creatinine 4.97 H* Estim Creat Clear Calc 9.9 Estimated GFR 9 POC Glucose 293 H Random Glucose 105 Calcium 8.7 Peritoneal WBC Peritoneal RBC Periton Neutrophils Periton Lymphocytes Peritoneal Monocytes Peritoneal Other Cells 04/09/24 07:19 WBC RBC Hgb Hct MCV MCH MCHC RDW Plt Count MPV Absolute Nucleated RBC Nucleated RBC % (auto) Sodium Potassium Chloride Carbon Dioxide Anion Gap BUN Creatinine Estim Creat Clear Calc Estimated GFR POC Glucose 102 Random Glucose Calcium Peritoneal WBC Peritoneal RBC Periton Neutrophils Periton Lymphocytes Peritoneal Monocytes Peritoneal Other Cells Microbiology Microbiology Results: Microbiology 04/08/24 12:00 Pleural Fluid Gram Stain - Final 04/08/24 12:00 Pleural Fluid Routine Culture - Preliminary No growth to date. 04/08/24 12:00 Pleural Fluid Anaerobic Culture - Preliminary No growth to date. Procedures Date of Service Date of Service: 04/09/24 Assessment & Plan Assessment and plan (1) Chronic kidney disease (CKD), stage IV (severe): Status: Acute (2) POWER (acute kidney injury): Status: Acute (3) -donor kidney transplant recipient: Status: Acute (4) Immunosuppression due to drug therapy: Status: Acute Plan Patient most likely having progression of chronic renal disease; she is receiving aggressive immunosuppression in setting of worsening chronic cellular rejection of renal transplant Given patient likely has lung malignancy (workup pending), will continue reduced dose of mycophenolate 180mg PO BID. Will discontinue if suggestion of malignancy by pleural fluid culture (pending). continue tacrolimus as ordered, tacrolimus level pending probably declining renal transplant function, may need dialysis eventually no need for dialysis at this time avoid nephrotoxins check renal function and electrolytes daily, monitor blood pressures regularly monitor I&O closely will continue to follow Discussed with Dr Newsome Time Spent With Patient Time: Total time managing care of this patient today ____ minutes. Progress Note: Quality Stroke Does the patient have a stroke diagnosis?: No
[2024-04-09] MEDS: ondansetron HCL 4 MG/2 ML VIAL IVPUSH ×2 (08:39→23:09)
--- NOTE | 2024-04-09 09:39 | HO.PM.IMPN ---
Subjective Subjective Date of Service: 04/09/24 Interval History: right chest pain Physical Exam Vital Signs: Vital Signs: Last Vital Signs Temp 97.7 F 04/09/24 07:16 Pulse 56 04/09/24 07:16 Resp 16 04/09/24 07:16 BP 148/66 H 04/09/24 07:16 Pulse Ox 94 04/09/24 07:16 O2 Del Method Room Air 04/09/24 07:16 O2 Flow Rate 2 04/08/24 12:20 BMI result Body Mass Index 19.4 Const: General: no acute distress, alert and awake Resp: Effort & Inspection: normal respiratory effort and able to speak in complete sentences Auscultation: clear to auscultation bilaterally Cardio: Jugular venous distension: no JVD Rate: regular rate Rhythm: regular rhythm Heart sounds: S1 normal heart sound present and S2 normal heart sound present GI: Palpation (GI): Soft to palpation and nontender : General: Yes no CVA tenderness Back/Spine/Pelvis: Back: no CVA tenderness Skin: Lesions: no lesions Rashes: no rashes Extrem: General: No edema Objective Data Active Medications Acetaminophen (Acetaminophen 325 Mg Tablet) 650 mg PO Q6H PRN PRN Reason: Pain, Mild (Pain Scale 1-3), fever or headache Last Admin: 04/08/24 14:34 Dose: 650 mg Documented By: VIANEY Amlodipine Besylate (Amlodipine Besylate 10 Mg Tablet) 10 mg PO DAILY [facility]; Protocol Last Admin: 04/09/24 07:55 Dose: 10 mg Documented By: HAKEEM Bisacodyl (Bisacodyl 10 Mg Supp.Rect) 10 mg ND DAILY PRN PRN Reason: no result from MOM by next shift Calcium Carbonate (Calcium Carbonate 750 Mg Tab.Chew) 750 mg PO Q4H PRN PRN Reason: Heartburn Carvedilol (Carvedilol 25 Mg Tablet) 25 mg PO BID [facility]; Protocol Last Admin: 04/09/24 07:57 Dose: Not Given Documented By: HAKEEM Non-Admin Reason: pt pulse in 50s Diphenhydramine HCl (Diphenhydramine Hcl 25 Mg Capsule) 25 mg PO BID PRN PRN Reason: itchiness Docusate Sodium (Docusate Sodium 100 Mg Capsule) 100 mg PO DAILY PRN PRN Reason: Constipation Glucose (Glucose Gel 15 Gm Gel..Gram.) 15 gm PO Q15M PRN; Protocol PRN Reason: per Hypoglycemia Standing Ord. Heparin Sodium (Porcine) (Heparin Sodium,Porcine 5,000 Unit/Ml Vial) 5,000 unit SUBCUT Q12H [facility] Last Admin: 04/09/24 04:47 Dose: 5,000 unit Documented By: DESIREE Hydromorphone HCl (Hydromorphone Hcl 0.5 Mg/0.5 Ml Syringe) 0.5 mg IVPUSH Q3H PRN; Protocol PRN Reason: Pain, Severe (Pain Scale 7-10) Last Admin: 04/09/24 07:49 Dose: 0.5 mg Documented By: HAKEEM Hydromorphone HCl (Hydromorphone Hcl 2 Mg Tablet) 4 mg PO Q4H PRN PRN Reason: Pain, Moderate(Pain Scale 4-6) Dextrose (D10) 250 mls @ 750 mls/hr IV Q15M PRN; Protocol PRN Reason: per Hypoglycemia Standing Ord. Insulin Human Lispro (Insulin Lispro 100 Unit/Ml 3 Ml Vial) 0 unit SUBCUT QIDACHS [facility]; Protocol Last Admin: 04/09/24 07:28 Dose: Not Given Documented By: HAKEEM Non-Admin Reason: No Insulin Coverage Isosorbide Mononitrate (Isosorbide Mononitrate 30 Mg Tab.Er.24h) 30 mg PO DAILY [facility]; Protocol Last Admin: 04/09/24 07:54 Dose: 30 mg Documented By: HAKEEM Magnesium Hydroxide (Milk Of Magnesia 30 Ml Oral.Susp) 30 ml PO DAILY PRN PRN Reason: Constipation Melatonin (Melatonin 3 Mg Tablet) 6 mg PO BEDTIME PRN PRN Reason: Insomnia Multivitamins/Vitamin C (Multivitamin Tablet) 1 tab PO DAILY [facility] Last Admin: 04/09/24 07:55 Dose: 1 tab Documented By: HAKEEM Mycophenolate Sodium (Mycophenolate Sodium 180 Mg Tablet.Dr) 180 mg PO BID [facility] Last Admin: 04/09/24 07:55 Dose: 180 mg Documented By: HAKEEM Pt Own( Envarsus 1mg Tablet,Extended Release 24hr) 10 mg PO DAILY [facility] Last Admin: 04/09/24 07:55 Dose: 10 mg Documented By: HAKEEM Omeprazole (Omeprazole 20 Mg Capsule.) 20 mg PO DAILY@0630 [facility] Last Admin: 04/09/24 06:02 Dose: 20 mg Documented By: DESIREE Ondansetron HCl (Ondansetron Hcl 4 Mg/2 Ml Vial) 4 mg IVPUSH Q6H PRN PRN Reason: Nausea Last Admin: 04/09/24 08:39 Dose: 4 mg Documented By: SHIN Prednisone (Prednisone 2.5 Mg Tablet) 7.5 mg PO DAILY [facility] Last Admin: 04/09/24 07:53 Dose: 7.5 mg Documented By: HAKEEM Sertraline HCl (Sertraline Hcl 25 Mg Tablet) 25 mg PO DAILY [facility] Last Admin: 04/09/24 07:54 Dose: 25 mg Documented By: HAKEEM Sodium Bicarbonate (Sodium Bicarbonate 650 Mg Tablet) 1,300 mg PO BID [facility] Last Admin: 04/09/24 07:54 Dose: 1,300 mg Documented By: HAKEEM Sodium Chloride (0.9 % Sodium Chloride Flush 3 Ml Syringe) 3 ml IVFLUSH QSHIFT [facility] Last Admin: 04/09/24 08:16 Dose: Not Given Documented By: HAKEEM Non-Admin Reason: port flush Sucralfate (Sucralfate 1 Gm Tablet) 1 gm PO QIDACHS [facility] Last Admin: 04/09/24 07:54 Dose: 1 gm Documented By: HAKEEM Labs 04/09/24 05:39 04/09/24 05:38 Labs: Laboratory Results - last 24 hr 04/08/24 04/08/24 04/08/24 12:00 12:33 16:14 MCV MCH MCHC RDW Plt Count MPV Absolute Nucleated RBC Nucleated RBC % (auto) Anion Gap Estim Creat Clear Calc Estimated GFR POC Glucose 110 128 H Random Glucose Calcium Peritoneal WBC 1.535 Peritoneal RBC < 0.002 Periton Neutrophils 85 Periton Lymphocytes 3 Peritoneal Monocytes 11 Peritoneal Other Cells 1 04/08/24 04/09/24 04/09/24 20:05 05:38 05:39 MCV 93.3 MCH 28.5 MCHC 30.6 L RDW 17.2 H Plt Count 290 MPV 10.2 Absolute Nucleated RBC 0.000 Nucleated RBC % (auto) 0.0 Anion Gap 17 Estim Creat Clear Calc 9.9 Estimated GFR 9 POC Glucose 293 H Random Glucose 105 Calcium 8.7 Peritoneal WBC Peritoneal RBC Periton Neutrophils Periton Lymphocytes Peritoneal Monocytes Peritoneal Other Cells 04/09/24 07:19 MCV MCH MCHC RDW Plt Count MPV Absolute Nucleated RBC Nucleated RBC % (auto) Anion Gap Estim Creat Clear Calc Estimated GFR POC Glucose 102 Random Glucose Calcium Peritoneal WBC Peritoneal RBC Periton Neutrophils Periton Lymphocytes Peritoneal Monocytes Peritoneal Other Cells Microbiology Microbiology Results: Microbiology 04/08/24 12:00 Gram Stain - Final Pleural Fluid Routine Culture - Preliminary No growth to date. Anaerobic Culture - Preliminary No growth to date. Assessment and Plan (1) Chronic kidney disease (CKD), stage IV (severe): Status: Acute Plan 63F H ESRD s/p DDKT (02/[address] bermudez), 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, HTN, hfpef, dm, anemia of chronic disease, carcinoid of appendix, mood disorder, recent left femoral neck fracture 02/11/24, sent in from SNF for anemia Acute on chronic anemia of chronic disease No obvious bleeding, iron studies c/w chronic disease Transfused 1 unit, monitor, improved appropriately Right-sided effusion and opacity Thoracic appreciated, chest tube placed, serous, mostly neutrophils, no organisms Concern for malignancy versus organizing pneumonia pulm eval Acute kidney injury on CKD 5 in patient with rejected renal transplant Nephro eval Continue immunosuppressants - dose adjusted Check renal ultrasound Monitor BMP Hypertension Continue amlodipine, carvedilol Diabetes with hyperglycemia Insulin sliding scale DVT prophylaxis with heparin subQ Full code reason for continued hospitalization:working up effusion, shai Quality Stroke Does the patient have a stroke diagnosis?: No VTE Prior VTE?: No VTE Risk Level:: Medical - moderate - high VTE Device Contraindication: Treatment Not Indicated VTE Drug Contraindication: N/A - Med Ordered
[2024-04-09 11:12] LABS: Glucose, Whole Blood 122 mg/dL (60-115)
--- NOTE | 2024-04-09 11:44 | P.CONPL_ITS ---
History of Present Illness History of Present Illness Consult date: 04/09/24 Chief complaint: Anemia,right pleural effusion Narrative: 63-year-old lady, nonsmoker, with underlying end-stage renal disease status post DDKT complicated by chronic rejection, now with CKD 4, diastolic heart failure, diabetes mellitus, CAD hospitalized on 04/07/2024 with progressive dyspnea of approximately 2 week duration. On initial evaluation patient not to have right- sided loculated pleural effusions and consolidative process in the right lower lobe. She had right-sided chest tube placed in with drainage of approximately 13 cc so far. Pleural studies are pending. Patient does report improved dyspnea after placement of chest tube. Review of Systems 2 Constitutional: Constitutional: Denies daytime sleepiness, Denies excessive sweating, Denies fatigue, Denies fever(s), Denies lethargy, Denies malaise, Denies night sweats, Denies snoring and Denies weight loss Eyes: Eyes: Denies blurry vision and Denies itchy eyes ENT: Denies nasal congestion, Denies post nasal drip, Denies sinus pain, Denies sinus pressure and Denies other ( Thrush) Cardiovascular: Cardiovascular: Denies chest pain, Denies pedal edema, Reports dyspnea, Reports dyspnea on exertion, Denies orthopnea and Denies paroxysmal nocturnal dyspnea Respiratory: Respiratory: Denies cough, Denies hemoptysis, Denies excessive phlegm production, Reports dyspnea, Reports dyspnea on exertion, Denies snoring and Denies wheezing Gastrointestinal: Gastrointestinal: Denies abdominal pain and Denies heartburn Musculoskeletal: Musculoskeletal: Denies myalgias, Denies arthralgias and Denies joint swelling Integumentary/Breasts: Skin/Breast: Denies rash Neurologic: Denies memory loss and Denies seizure-like activity Psychiatric: Psychiatric: Denies abnormal sleep pattern, Denies anxiety and Denies memory loss Endocrine: Endocrine: Denies excessive sweating, Denies fatigue and Denies heat intolerance Hematologic/Lymphatic: Hematologic/Lymphatic: Denies easy bruising Allergic/Immunologic: Allergic/Immunologic: Denies itchy eyes, Denies seasonal rhinorrhea and Denies wheezing PMFSH Past Medical History Medical History HTN (hypertension) Mood disorder 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) Kidney transplant status History of appendectomy H/O cardiac catheterization Social History Social History Household Members: Family Housing: House Do you presently have visiting nurse or other home services: No Alcohol intake: never Comment: patient is bedbound at this time Patient Tobacco Use Status: Never used Tobacco service: No Meds Allergies Allergy/AdvReac Type Severity Reaction Status Date / Time codeine [CODEINE] Allergy Intermediate Hives and Verified 04/08/24 09:36 pruritus oxycodone [OXYCODONE] Allergy Intermediate HIVES Verified 04/07/24 08:15 Active Medications: Current Medications Acetaminophen (Acetaminophen 325 Mg Tablet) 650 mg PO Q6H PRN PRN Reason: Pain, Mild (Pain Scale 1-3), fever or headache Last Admin: 04/08/24 14:34 Dose: 650 mg Amlodipine Besylate (Amlodipine Besylate 10 Mg Tablet) 10 mg PO DAILY [facility]; Protocol Last Admin: 04/09/24 07:55 Dose: 10 mg Bisacodyl (Bisacodyl 10 Mg Supp.Rect) 10 mg [place] DAILY PRN PRN Reason: no result from MOM by next shift Calcium Carbonate (Calcium Carbonate 750 Mg Tab.Chew) 750 mg PO Q4H PRN PRN Reason: Heartburn Carvedilol (Carvedilol 25 Mg Tablet) 25 mg PO BID [facility]; Protocol Last Admin: 04/09/24 07:57 Dose: Not Given Diphenhydramine HCl (Diphenhydramine Hcl 25 Mg Capsule) 25 mg PO BID PRN PRN Reason: itchiness Docusate Sodium (Docusate Sodium 100 Mg Capsule) 100 mg PO DAILY PRN PRN Reason: Constipation Glucose (Glucose Gel 15 Gm Gel..Gram.) 15 gm PO Q15M PRN; Protocol PRN Reason: per Hypoglycemia Standing Ord. Heparin Sodium (Porcine) (Heparin Sodium,Porcine 5,000 Unit/Ml Vial) 5,000 unit SUBCUT Q12H [facility] Last Admin: 04/09/24 04:47 Dose: 5,000 unit Hydromorphone HCl (Hydromorphone Hcl 0.5 Mg/0.5 Ml Syringe) 0.5 mg IVPUSH Q3H PRN; Protocol PRN Reason: Pain, Severe (Pain Scale 7-10) Last Admin: 04/09/24 07:49 Dose: 0.5 mg Hydromorphone HCl (Hydromorphone Hcl 2 Mg Tablet) 4 mg PO Q4H PRN PRN Reason: Pain, Moderate(Pain Scale 4-6) Dextrose (D10) 250 mls @ 750 mls/hr IV Q15M PRN; Protocol PRN Reason: per Hypoglycemia Standing Ord. Ampicillin Sodium/Sulbactam (Sodium 1.5 gm/ Sodium Chloride) 100 mls @ 200 mls/hr IV Q12H [facility] Insulin Human Lispro (Insulin Lispro 100 Unit/Ml 3 Ml Vial) 0 unit SUBCUT QIDACHS [facility]; Protocol Last Admin: 04/09/24 11:10 Dose: Not Given Isosorbide Mononitrate (Isosorbide Mononitrate 30 Mg Tab.Er.24h) 30 mg PO DAILY [facility]; Protocol Last Admin: 04/09/24 07:54 Dose: 30 mg Magnesium Hydroxide (Milk Of Magnesia 30 Ml Oral.Susp) 30 ml PO DAILY PRN PRN Reason: Constipation Melatonin (Melatonin 3 Mg Tablet) 6 mg PO BEDTIME PRN PRN Reason: Insomnia Multivitamins/Vitamin C (Multivitamin Tablet) 1 tab PO DAILY [facility] Last Admin: 04/09/24 07:55 Dose: 1 tab Mycophenolate Sodium (Mycophenolate Sodium 180 Mg Tablet.) 180 mg PO BID [facility] Last Admin: 04/09/24 07:55 Dose: 180 mg Pt Own( Envarsus 1mg Tablet,Extended Release 24hr) 10 mg PO DAILY [facility] Last Admin: 04/09/24 07:55 Dose: 10 mg Omeprazole (Omeprazole 20 Mg Capsule.) 20 mg PO DAILY@0630 [facility] Last Admin: 04/09/24 06:02 Dose: 20 mg Ondansetron HCl (Ondansetron Hcl 4 Mg/2 Ml Vial) 4 mg IVPUSH Q6H PRN PRN Reason: Nausea Last Admin: 04/09/24 08:39 Dose: 4 mg Prednisone (Prednisone 2.5 Mg Tablet) 7.5 mg PO DAILY [facility] Last Admin: 04/09/24 07:53 Dose: 7.5 mg Sertraline HCl (Sertraline Hcl 25 Mg Tablet) 25 mg PO DAILY [facility] Last Admin: 04/09/24 07:54 Dose: 25 mg Sodium Bicarbonate (Sodium Bicarbonate 650 Mg Tablet) 1,300 mg PO BID [facility] Last Admin: 04/09/24 07:54 Dose: 1,300 mg Sodium Chloride (0.9 % Sodium Chloride Flush 3 Ml Syringe) 3 ml IVFLUSH QSHIFT [facility] Last Admin: 04/09/24 08:16 Dose: Not Given Sucralfate (Sucralfate 1 Gm Tablet) 1 gm PO QIDACHS [facility] Last Admin: 04/09/24 07:54 Dose: 1 gm Home Medications ?Medication ?Instructions ?Recorded ?Confirmed ?Last Taken ?Type epoetin natali 40,000 unit/mL 40,000 unit IV MO 12/31/23 04/07/24 Unknown History injection solution (Procrit) acetaminophen 325 mg tablet 650 mg PO Q4H PRN Mild Pain (Scale 04/07/24 04/07/24 Unknown History Score 1-4) acetaminophen 325 mg tablet 650 mg PO Q6H PRN Fever 04/07/24 04/07/24 Unknown History bisacodyl 10 mg rectal suppository 10 mg [place] DAILY PRN no result from 04/07/24 04/07/24 Unknown History (Dulcolax (bisacodyl)) MOM by next shift carvedilol 25 mg tablet 25 mg PO BID 04/07/24 04/07/24 Unknown History dextrose 40 % oral gel 20 g PO Q15M PRN BG less than 70 04/07/24 04/07/24 Unknown History diphenhydramine HCl 25 mg tablet 25 mg PO BID PRN itchiness 04/07/24 04/07/24 Unknown History docusate sodium 100 mg capsule 100 mg PO DAILY PRN Constipation 04/07/24 04/07/24 Unknown History glucagon 1 mg injection kit 1 mg IM DAILY PRN BG less than 70 04/07/24 04/07/24 Unknown History hydromorphone 4 mg tablet 4 mg PO Q4H PRN moderate to severe 04/07/24 04/07/24 Unknown History pain insulin lispro 200 unit/mL (3 mL) 1 sliding scale dose subcut 04/07/24 04/07/24 Unknown History subcutaneous pen USEASDIRECTD isosorbide mononitrate 30 mg 30 mg PO DAILY 04/07/24 04/07/24 Unknown History tablet,extended release 24 hr magnesium hydroxide 400 mg/5 mL 30 ml PO DAILY PRN no BM in 3 days 04/07/24 04/07/24 Unknown History oral suspension (Milk of Magnesia) mycophenolate sodium 360 mg 360 mg PO BID 04/07/24 04/07/24 Unknown History tablet,delayed release ondansetron HCl 4 mg tablet 4 mg PO Q8H PRN Nausea And Vomiting 04/07/24 04/07/24 Unknown History pantoprazole 40 mg tablet,delayed 40 mg PO DAILY@0630 04/07/24 04/07/24 Unknown History release prednisone 2.5 mg tablet 7.5 mg PO DAILY 04/07/24 04/07/24 Unknown History sertraline 25 mg tablet 25 mg PO DAILY 04/07/24 04/07/24 Unknown History sodium bicarbonate 650 mg tablet 1,300 mg PO BID 04/07/24 04/07/24 Unknown History sodium phosphates 19 gram-7 118 ml WI DAILY PRN if no result 04/07/24 04/07/24 Unknown History gram/118 mL enema (Fleet Enema) from dulcolax within 2 hours sucralfate 1 gram tablet 1 g PO QIDACHS 04/07/24 04/07/24 Unknown History tacrolimus 5 mg capsule,extended 10 mg PO DAILY 04/07/24 04/07/24 Unknown History release 24 hr vitamin B complex-vitamin C-folic 1 tab PO DAILY 04/07/24 04/07/24 Unknown History acid 0.8 mg tablet (Nephro Vitamins) Physical Exam 2 Vital Signs: Vital Signs: Last Vital Signs Temp 97.7 F 04/09/24 07:16 Pulse 56 04/09/24 07:16 Resp 16 04/09/24 07:16 BP 148/66 H 04/09/24 07:16 Pulse Ox 94 04/09/24 07:16 O2 Del Method Room Air 04/09/24 07:16 O2 Flow Rate 2 04/08/24 12:20 BMI result Body Mass Index 19.4 Const: General: no acute distress and alert Nutritional Appearance: not obese Orientation/consciousness: Other orientation findings ( oriented) HEENT: Head: Yes atraumatic Eyes: General: appearance normal, both eyes and all related structures S clerae: sclerae normal EOM: EOMs intact bilaterally Neck: Neck: Yes supple Lymphatic: no lymphadenopathy noted Resp: Effort & Inspection: normal respiratory effort and no use of accessory muscles Auscultation: crackles (Bibasilar) Cardio: Rate: regular rate Rhythm: regular rhythm Heart sounds: no gallops, no murmurs and no rubs Skin: General skin exam: other ( warm) Extrem: General: No clubbing, No cyanosis and No edema Results Laboratory Findings 04/09/24 05:39 04/09/24 05:38 ABG, PT/INR, D-dimer: PT/INR, D-dimer PT 13.8 SEC (10.9-12.4) H 04/07/24 08:38 INR 1.2 (0.9-1.1) H 04/07/24 08:38 Abnormal lab findings: Abnormal Labs 04/07/24 04/07/24 04/08/24 08:38 09:02 05:58 RBC 2.31 L 2.79 L D Hgb 6.4 L* 7.8 L D Hct 22.0 L 25.8 L MCHC 29.1 L 30.2 L RDW 16.7 H 17.3 H Neutrophils % (Manual) 81 H Band Neutrophils % 7 H Lymphocytes % (Manual) 4 L Abs Neuts (Manual) 8.5 H Lymphocytes # (Manual) 0.4 L PT 13.8 H INR 1.2 H Chloride 109 H Carbon Dioxide 21 L 17 L BUN 60 H 57 H Creatinine 4.46 H* 4.93 H* POC Glucose Calcium 8.3 L Iron 10 L TIBC 67 L Ferritin 8029 H Total Protein 5.6 L Albumin 2.4 L Crossmatch See Detail 04/08/24 04/08/24 04/09/24 16:14 20:05 05:38 RBC Hgb Hct MCHC RDW Neutrophils % (Manual) Band Neutrophils % Lymphocytes % (Manual) Abs Neuts (Manual) Lymphocytes # (Manual) PT INR Chloride Carbon Dioxide 18 L BUN 64 H Creatinine 4.97 H* POC Glucose 128 H 293 H Calcium Iron TIBC Ferritin Total Protein Albumin Crossmatch 04/09/24 04/09/24 05:39 11:08 RBC 2.84 L Hgb 8.1 L Hct 26.5 L MCHC 30.6 L RDW 17.2 H Neutrophils % (Manual) Band Neutrophils % Lymphocytes % (Manual) Abs Neuts (Manual) Lymphocytes # (Manual) PT INR Chloride Carbon Dioxide BUN Creatinine POC Glucose 122 H Calcium Iron TIBC Ferritin Total Protein Albumin Crossmatch Microbiology: Microbiology 04/08/24 12:00 Pleural Fluid Gram Stain - Final 04/08/24 12:00 Pleural Fluid Routine Culture - Preliminary No growth to date. 04/08/24 12:00 Pleural Fluid Anaerobic Culture - Preliminary No growth to date. Assessment and Plan (1) Pneumonia: Status: Acute (2) Pleural effusion, right: Status: Acute Plan Impression: 63-year-old lady admitted with dyspnea no to have right-sided consolidative process with loculated right-sided pleural effusion, now status post chest tube. May have underlying malignant component. Recommendations: Obtain pleural fluid studies to characterize pleural fluid including pleural PH/glucose/cultures/cytology/LDH/albumin/protein. Suggest empiric treatment for community-acquired pneumonia. Suggests 72 hour trial of tPA/DNase via chest tube. With repeat CT chest in 5-7 days to assess for changes/possible underlying malignant component. Procedures Date of Service Date of Service: 04/09/24
[2024-04-09 11:49] LABS: BF Shift QC OK YES; Lymphocytes Pleural Fluid 3 %; Monocytes Pleural Fluid 11 %; Neutrophils Pleural Fluid 85 %; Other Cells Plerual Fl 1 %; RBC Pleural Fluid < 0.002 X10*6/uL; WBC Pleural Fluid 1.535 X10*3/uL
[2024-04-09 11:50] LABS: MN% 84.4 %; PMN% 15.6 %
--- NOTE | 2024-04-09 11:54 | MHC.CLN ---
F/U DIET=DIABETIC 1800 KCALS. SUPPLEMENT ENSURE CLEAR TID PROVIDES 720 KCALS, 24 G PROTEIN. PT WITH INCREASED NUTRITION RISK R/T PRESSURE INJURY. STAGE II PRESSURE INJURY TO COCCYX. SUPPLEMENT TO PROMOTE WOUND HEALING. PO INTAKE VARIABLE. MONITOR PO INTAKE AND ENCOURAGE SUPPLEMENTS.
[2024-04-09] MEDS: Ampicillin Sodium/Sulbactam Na 1.5 GM in 0.9 % Sodium Chloride 100 ML IV (12:13)
--- NOTE | 2024-04-09 12:56 | MHC.CM.PN ---
Per MD rounds patient not medically cleared for dc. CM will continue to follow.
[2024-04-09] MEDS: HYDROmorphone HCl 2 MG TABLET 4 MG PO (14:24)
[2024-04-09 15:12] VITALS: BP 142/67; PULSE 58; RESP 17; TEMP 36.8; O2SAT 95
[2024-04-09 15:24] LABS: Glucose, Whole Blood 201 mg/dL (60-115)
[2024-04-09] MEDS: Insulin Lispro 100 UNIT/ML 3 ML VIAL SUBCUT (16:15)
[2024-04-09] MEDS: 0.9 % Sodium Chloride Flush 3 ML SYRINGE IVFLUSH (16:18)
[2024-04-09 19:26] VITALS: BP 139/62; PULSE 59; RESP 18; TEMP 36; O2SAT 99
[2024-04-09 20:00] LABS: Glucose, Whole Blood 128 mg/dL (60-115)
[2024-04-10 03:21] VITALS: BP 150/69; PULSE 56; RESP 18; TEMP 37.2; O2SAT 100
[2024-04-10] MEDS: HYDROmorphone HCl 0.5 MG/0.5 ML SYRINGE IVPUSH (03:58)
[2024-04-10] MEDS: Heparin Sodium,Porcine 5,000 UNIT/ML VIAL 5000 UNIT SUBCUT ×2 (05:38→17:10)
[2024-04-10] MEDS: Omeprazole 20 MG CAPSULE.DR PO (05:38)
[2024-04-10 06:31] LABS: Hematocrit 27.5 % (37.0-47.0); Hemoglobin 8.3 g/dl (12.0-16.0); Mean Corpuscular HGB Conc 30.2 g/dl (31.0-35.0); Mean Corpuscular Hemoglobin 28.3 pg (27.0-33.0); Mean Corpuscular Volume 93.9 fL (80.0-98.0); Mean Platelet Volume 10.2 fL (9.4-12.3); Platelet Count 285 X10*3/uL (160-400); Red Blood Count 2.93 X10*6/uL (4.20-5.50); Red Cell Distribution Width 17.2 % (11.0-16.0); White Blood Count 9.8 X10*3/uL (4.8-10.8)
[2024-04-10 06:51] LABS: Alanine Aminotransferase < 6 U/L (0-31); Albumin Level 2.3 g/dL (3.5-5.0); Alkaline Phosphatase 55 U/L (39-117); Anion Gap 17 (12-20); Aspartate Amino Transferase 11 U/L (5-31); Bilirubin Direct 0.1 mg/dL (0.0-0.5); Bilirubin Total 0.3 mg/dL (0.0-1.0); Blood Urea Nitrogen 61 mg/dL (9-16); Calcium 8.4 mg/dL (8.4-10.2); Carbon Dioxide 19 mmol/L (22-29); Chloride 109 mmol/L (96-108); Creatinine Clr Calc Pharmacy 10.6; Estimated Glomerular Filt Rate 10; Glucose Random 101 mg/dL (60-115); Magnesium 1.7 mg/dL (1.6-2.6); Potassium 4.2 mmol/L (3.3-5.1); Sodium 141 mmol/L (135-145); Total Protein 5.9 g/dL (6.5-8.0)
[2024-04-10 07:17] VITALS: BP 144/63; PULSE 55; RESP 16; TEMP 36.9; O2SAT 92
[2024-04-10 07:48] LABS: Glucose, Whole Blood 94 mg/dL (60-115)
[2024-04-10 08:10] LABS: LDH Pleural Fluid 211; Total Protein Pleural Fluid 2.8
--- NOTE | 2024-04-10 08:36 | P.PNIM_ITS ---
Subjective Subjective Date of Service: 04/10/24 Interval History: a bit better today Physical Exam 2 Vital Signs: Vital Signs: Last Vital Signs Temp 98.4 F 04/10/24 07:17 Pulse 55 04/10/24 07:17 Resp 16 04/10/24 07:17 BP 144/63 H 04/10/24 07:17 Pulse Ox 92 04/10/24 07:17 O2 Del Method Room Air 04/10/24 07:17 O2 Flow Rate 2 04/08/24 12:20 BMI result Body Mass Index 19.4 Const: General: no acute distress and alert Nutritional Appearance: not obese Orientation/consciousness: Other orientation findings ( oriented) HEENT: Head: Yes atraumatic Eyes: General: appearance normal, both eyes and all related structures S clerae: sclerae normal EOM: EOMs intact bilaterally Neck: Neck: Yes supple Lymphatic: no lymphadenopathy noted Resp: Effort & Inspection: normal respiratory effort and no use of accessory muscles Auscultation: crackles (Bibasilar) Cardio: Rate: regular rate Rhythm: regular rhythm Heart sounds: no gallops, no murmurs and no rubs Skin: General skin exam: other ( warm) Extrem: General: No clubbing, No cyanosis and No edema Objective Data Active Medications Acetaminophen (Acetaminophen 325 Mg Tablet) 650 mg PO Q6H PRN PRN Reason: Pain, Mild (Pain Scale 1-3), fever or headache Last Admin: 04/08/24 14:34 Dose: 650 mg Documented By: VIANEY Amlodipine Besylate (Amlodipine Besylate 10 Mg Tablet) 10 mg PO DAILY [facility]; Protocol Last Admin: 04/09/24 07:55 Dose: 10 mg Documented By: HAKEEM Bisacodyl (Bisacodyl 10 Mg Supp.Rect) 10 mg [place] DAILY PRN PRN Reason: no result from MOM by next shift Calcium Carbonate (Calcium Carbonate 750 Mg Tab.Chew) 750 mg PO Q4H PRN PRN Reason: Heartburn Carvedilol (Carvedilol 25 Mg Tablet) 25 mg PO BID [facility]; Protocol Last Admin: 04/09/24 20:23 Dose: Not Given Documented By: NEVILLE Non-Admin Reason: Decreased Heart Rate Diphenhydramine HCl (Diphenhydramine Hcl 25 Mg Capsule) 25 mg PO BID PRN PRN Reason: itchiness Docusate Sodium (Docusate Sodium 100 Mg Capsule) 100 mg PO DAILY PRN PRN Reason: Constipation Glucose (Glucose Gel 15 Gm Gel..Gram.) 15 gm PO Q15M PRN; Protocol PRN Reason: per Hypoglycemia Standing Ord. Heparin Sodium (Porcine) (Heparin Sodium,Porcine 5,000 Unit/Ml Vial) 5,000 unit SUBCUT Q12H [facility] Last Admin: 04/10/24 05:38 Dose: 5,000 unit Documented By: NEVILLE Hydromorphone HCl (Hydromorphone Hcl 0.5 Mg/0.5 Ml Syringe) 0.5 mg IVPUSH Q3H PRN; Protocol PRN Reason: Pain, Severe (Pain Scale 7-10) Last Admin: 04/10/24 03:58 Dose: 0.5 mg Documented By: NEVILLE Hydromorphone HCl (Hydromorphone Hcl 2 Mg Tablet) 4 mg PO Q4H PRN PRN Reason: Pain, Moderate(Pain Scale 4-6) Last Admin: 04/09/24 14:24 Dose: 4 mg Documented By: HAKEEM Dextrose (D10) 250 mls @ 750 mls/hr IV Q15M PRN; Protocol PRN Reason: per Hypoglycemia Standing Ord. Ampicillin Sodium/Sulbactam (Sodium 1.5 gm/ Sodium Chloride) 100 mls @ 200 mls/hr IV Q24H [facility] Insulin Human Lispro (Insulin Lispro 100 Unit/Ml 3 Ml Vial) 0 unit SUBCUT QIDACHS [facility]; Protocol Last Admin: 04/10/24 07:21 Dose: Not Given Documented By: VIANEY Non-Admin Reason: No Insulin Coverage Isosorbide Mononitrate (Isosorbide Mononitrate 30 Mg Tab.Er.24h) 30 mg PO DAILY [facility]; Protocol Last Admin: 04/09/24 07:54 Dose: 30 mg Documented By: HAKEEM Magnesium Hydroxide (Milk Of Magnesia 30 Ml Oral.Susp) 30 ml PO DAILY PRN PRN Reason: Constipation Melatonin (Melatonin 3 Mg Tablet) 6 mg PO BEDTIME PRN PRN Reason: Insomnia Multivitamins/Vitamin C (Multivitamin Tablet) 1 tab PO DAILY [facility] Last Admin: 04/09/24 07:55 Dose: 1 tab Documented By: HAKEEM Mycophenolate Sodium (Mycophenolate Sodium 180 Mg Tablet.) 180 mg PO BID [facility] Last Admin: 04/09/24 20:21 Dose: 180 mg Documented By: NEVILLE Pt Own( Envarsus 1mg Tablet,Extended Release 24hr) 10 mg PO DAILY [facility] Last Admin: 04/09/24 07:55 Dose: 10 mg Documented By: HAKEEM Omeprazole (Omeprazole 20 Mg Capsule.) 20 mg PO DAILY@0630 [facility] Last Admin: 04/10/24 05:38 Dose: 20 mg Documented By: NEVILLE Ondansetron HCl (Ondansetron Hcl 4 Mg/2 Ml Vial) 4 mg IVPUSH Q6H PRN PRN Reason: Nausea Last Admin: 04/09/24 23:09 Dose: 4 mg Documented By: NEVILLE Prednisone (Prednisone 2.5 Mg Tablet) 7.5 mg PO DAILY [facility] Last Admin: 04/09/24 07:53 Dose: 7.5 mg Documented By: HAKEEM Sertraline HCl (Sertraline Hcl 25 Mg Tablet) 25 mg PO DAILY [facility] Last Admin: 04/09/24 07:54 Dose: 25 mg Documented By: HAKEEM Sodium Bicarbonate (Sodium Bicarbonate 650 Mg Tablet) 1,300 mg PO BID [facility] Last Admin: 04/09/24 20:21 Dose: 1,300 mg Documented By: NEVILLE Sodium Chloride (0.9 % Sodium Chloride Flush 3 Ml Syringe) 3 ml IVFLUSH QSHIFT [facility] Last Admin: 04/10/24 00:09 Dose: Not Given Documented By: NEVILLE Non-Admin Reason: pt has an implanted port Sucralfate (Sucralfate 1 Gm Tablet) 1 gm PO QIDACHS [facility] Last Admin: 04/09/24 20:21 Dose: 1 gm Documented By: NEVILLE Labs 04/10/24 05:26 04/10/24 05:26 Labs: Laboratory Results - last 24 hr 04/08/24 04/09/24 04/09/24 12:00 11:08 15:20 MCV MCH MCHC RDW Plt Count MPV Absolute Nucleated RBC Nucleated RBC % (auto) Anion Gap Estim Creat Clear Calc Estimated GFR POC Glucose 122 H 201 H Random Glucose Calcium Magnesium Total Bilirubin Direct Bilirubin AST ALT Alkaline Phosphatase Total Protein Albumin Peritoneal WBC TNP Peritoneal RBC TNP Periton Neutrophils TNP Periton Lymphocytes TNP Peritoneal Monocytes TNP Peritoneal Other Cells TNP Pleural WBC 1.535 Pleural RBC < 0.002 Pleural Neutrophils 85 Pleural Lymphocytes 3 Pleural Monocytes 11 Pleural Other Cells 1 Pleural Total Protein 2.8 Pleural LDH 211 04/09/24 04/10/24 04/10/24 19:53 05:26 07:13 MCV 93.9 MCH 28.3 MCHC 30.2 L RDW 17.2 H Plt Count 285 MPV 10.2 Absolute Nucleated RBC 0.000 Nucleated RBC % (auto) 0.0 Anion Gap 17 Estim Creat Clear Calc 10.6 Estimated GFR 10 POC Glucose 128 H 94 Random Glucose 101 Calcium 8.4 Magnesium 1.7 Total Bilirubin 0.3 Direct Bilirubin 0.1 AST 11 ALT < 6 Alkaline Phosphatase 55 Total Protein 5.9 L Albumin 2.3 L Peritoneal WBC Peritoneal RBC Periton Neutrophils Periton Lymphocytes Peritoneal Monocytes Peritoneal Other Cells Pleural WBC Pleural RBC Pleural Neutrophils Pleural Lymphocytes Pleural Monocytes Pleural Other Cells Pleural Total Protein Pleural LDH Microbiology Microbiology Results: Microbiology 04/08/24 12:00 Gram Stain - Final Pleural Fluid Routine Culture - Preliminary No growth to date. Anaerobic Culture - Preliminary No growth to date. Assessment and Plan (1) Chronic kidney disease (CKD), stage IV (severe): Status: Acute Plan 63F [facility] ESRD s/p DDKT (02/[address] bermudez), 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, HTN, hfpef, dm, anemia of chronic disease, carcinoid of appendix, mood disorder, recent left femoral neck fracture 02/11/24, sent in from SNF for anemia Acute on chronic anemia of chronic disease No obvious bleeding, iron studies c/w chronic disease Transfused 1 unit, monitor, improved appropriately Right-sided effusion and opacity Thoracic appreciated, chest tube placed, serous, mostly neutrophils, no organisms Concern for malignancy versus organizing pneumonia pulm appreciated, added Unasyn Acute kidney injury on CKD 5 in patient with rejected renal transplant Nephro following Continue immunosuppressants - dose adjusted renal ultrasound negative for hydro Monitor BMP Hypertension Continue amlodipine, carvedilol Diabetes with hyperglycemia Insulin sliding scale DVT prophylaxis with heparin subQ Full code reason for continued hospitalization:working up effusion, shai Quality Stroke Does the patient have a stroke diagnosis?: No VTE Prior VTE?: No VTE Risk Level:: Medical - moderate - high VTE Device Contraindication: Treatment Not Indicated VTE Drug Contraindication: N/A - Med Ordered
[2024-04-10] MEDS: ENVARSUS 1 MG 10 EACH PO (08:39)
[2024-04-10] MEDS: Sodium Bicarbonate 650 MG TABLET 1300 MG PO ×2 (08:40→20:32)
[2024-04-10] MEDS: Isosorbide Mononitrate 30 MG TAB.ER.24H PO (08:40)
[2024-04-10] MEDS: HYDROmorphone HCl 2 MG TABLET 4 MG PO ×2 (08:40→12:38)
[2024-04-10] MEDS: Sucralfate 1 GM TABLET PO ×4 (08:40→20:32)
[2024-04-10] MEDS: Sertraline HCL 25 MG TABLET PO (08:40)
[2024-04-10] MEDS: Mycophenolate Sodium 180 MG TABLET.DR PO ×2 (08:41→20:33)
[2024-04-10] MEDS: Multivitamin TABLET 1 TAB PO (08:41)
[2024-04-10] MEDS: amLODIPine Besylate 10 MG TABLET PO (08:41)
[2024-04-10] MEDS: 0.9 % Sodium Chloride Flush 3 ML SYRINGE IVFLUSH ×2 (08:41→12:38)
[2024-04-10] MEDS: predniSONE 2.5 MG TABLET 7.5 MG PO (08:41)
[2024-04-10] MEDS: carvediloL 25 MG TABLET PO (08:41)
[2024-04-10 11:36] LABS: Glucose, Whole Blood 156 mg/dL (60-115)
[2024-04-10] MEDS: Insulin Lispro 100 UNIT/ML 3 ML VIAL SUBCUT ×2 (11:38→17:09)
[2024-04-10] MEDS: Ampicillin Sodium/Sulbactam Na 1.5 GM in 0.9 % Sodium Chloride 100 ML IV (11:38)
[2024-04-10 16:00] VITALS: BP 143/64; PULSE 55; RESP 16; TEMP 36.6; O2SAT 99
[2024-04-10 16:52] LABS: Glucose, Whole Blood 169 mg/dL (60-115)
[2024-04-10 20:00] VITALS: BP 138/64; PULSE 53; RESP 18; TEMP 36.2; O2SAT 100
[2024-04-10 20:36] VITALS: PULSE 53
[2024-04-10 20:57] LABS: Glucose, Whole Blood 113 mg/dL (60-115)
[2024-04-10 23:03] LABS: Tacrolimus Prograf 4.2 mcg/L
[2024-04-11] MEDS: HYDROmorphone HCl 0.5 MG/0.5 ML SYRINGE IVPUSH ×2 (02:54→08:26)
[2024-04-11 03:41] VITALS: BP 144/70; PULSE 59; RESP 18; TEMP 36.4; O2SAT 99
[2024-04-11] MEDS: Omeprazole 20 MG CAPSULE.DR PO (06:14)
[2024-04-11] MEDS: Heparin Sodium,Porcine 5,000 UNIT/ML VIAL 5000 UNIT SUBCUT ×2 (06:14→16:49)
[2024-04-11 07:23] VITALS: BP 142/69; PULSE 57; RESP 14; TEMP 36.7; O2SAT 96
[2024-04-11 07:40] LABS: Glucose, Whole Blood 100 mg/dL (60-115)
[2024-04-11] MEDS: carvediloL 25 MG TABLET PO (08:27)
[2024-04-11] MEDS: Sertraline HCL 25 MG TABLET PO (08:27)
[2024-04-11] MEDS: Isosorbide Mononitrate 30 MG TAB.ER.24H PO (08:27)
[2024-04-11] MEDS: Multivitamin TABLET 1 TAB PO (08:27)
[2024-04-11] MEDS: Sucralfate 1 GM TABLET PO ×4 (08:27→20:52)
[2024-04-11] MEDS: ENVARSUS 1 MG 10 EACH PO (08:27)
[2024-04-11] MEDS: Mycophenolate Sodium 180 MG TABLET.DR PO ×2 (08:27→20:52)
[2024-04-11] MEDS: amLODIPine Besylate 10 MG TABLET PO (08:27)
[2024-04-11] MEDS: predniSONE 2.5 MG TABLET 7.5 MG PO (08:27)
[2024-04-11] MEDS: Sodium Bicarbonate 650 MG TABLET 1300 MG PO ×2 (08:27→20:52)
[2024-04-11] MEDS: 0.9 % Sodium Chloride Flush 3 ML SYRINGE IVFLUSH ×2 (08:28→16:55)
--- NOTE | 2024-04-11 09:08 | P.PNIM_ITS ---
Subjective Subjective Date of Service: 04/11/24 Interval History: a bit better today Physical Exam 2 Vital Signs: Vital Signs: Last Vital Signs Temp 98.1 F 04/11/24 07:23 Pulse 57 04/11/24 07:23 Resp 14 04/11/24 07:23 BP 142/69 H 04/11/24 07:23 Pulse Ox 96 04/11/24 07:23 O2 Del Method Room Air 04/11/24 07:23 O2 Flow Rate 2 04/08/24 12:20 BMI result Body Mass Index 19.4 Const: General: no acute distress and alert Nutritional Appearance: not obese Orientation/consciousness: Other orientation findings ( oriented) HEENT: Head: Yes atraumatic Eyes: General: appearance normal, both eyes and all related structures S clerae: sclerae normal EOM: EOMs intact bilaterally Neck: Neck: Yes supple Lymphatic: no lymphadenopathy noted Resp: Effort & Inspection: normal respiratory effort and no use of accessory muscles Auscultation: crackles (Bibasilar) Cardio: Rate: regular rate Rhythm: regular rhythm Heart sounds: no gallops, no murmurs and no rubs Skin: General skin exam: other ( warm) Extrem: General: No clubbing, No cyanosis and No edema Objective Data Active Medications Acetaminophen (Acetaminophen 325 Mg Tablet) 650 mg PO Q6H PRN PRN Reason: Pain, Mild (Pain Scale 1-3), fever or headache Last Admin: 04/08/24 14:34 Dose: 650 mg Documented By: VIANEY Amlodipine Besylate (Amlodipine Besylate 10 Mg Tablet) 10 mg PO DAILY [facility]; Protocol Last Admin: 04/11/24 08:27 Dose: 10 mg Documented By: VIANEY Bisacodyl (Bisacodyl 10 Mg Supp.Rect) 10 mg [place] DAILY PRN PRN Reason: no result from MOM by next shift Calcium Carbonate (Calcium Carbonate 750 Mg Tab.Chew) 750 mg PO Q4H PRN PRN Reason: Heartburn Carvedilol (Carvedilol 25 Mg Tablet) 25 mg PO BID [facility]; Protocol Last Admin: 04/11/24 08:27 Dose: 25 mg Documented By: VIANEY Diphenhydramine HCl (Diphenhydramine Hcl 25 Mg Capsule) 25 mg PO BID PRN PRN Reason: itchiness Docusate Sodium (Docusate Sodium 100 Mg Capsule) 100 mg PO DAILY PRN PRN Reason: Constipation Glucose (Glucose Gel 15 Gm Gel..Gram.) 15 gm PO Q15M PRN; Protocol PRN Reason: per Hypoglycemia Standing Ord. Heparin Sodium (Porcine) (Heparin Sodium,Porcine 5,000 Unit/Ml Vial) 5,000 unit SUBCUT Q12H [facility] Last Admin: 04/11/24 06:14 Dose: 5,000 unit Documented By: NEVILLE Hydromorphone HCl (Hydromorphone Hcl 0.5 Mg/0.5 Ml Syringe) 0.5 mg IVPUSH Q3H PRN; Protocol PRN Reason: Pain, Severe (Pain Scale 7-10) Last Admin: 04/11/24 08:26 Dose: 0.5 mg Documented By: VIANEY Hydromorphone HCl (Hydromorphone Hcl 2 Mg Tablet) 4 mg PO Q4H PRN PRN Reason: Pain, Moderate(Pain Scale 4-6) Last Admin: 04/10/24 12:38 Dose: 4 mg Documented By: VIANEY Dextrose (D10) 250 mls @ 750 mls/hr IV Q15M PRN; Protocol PRN Reason: per Hypoglycemia Standing Ord. Ampicillin Sodium/Sulbactam (Sodium 1.5 gm/ Sodium Chloride) 100 mls @ 200 mls/hr IV Q24H [facility] Last Infusion: 04/10/24 12:34 Dose: Infused Documented By: VIANEY Insulin Human Lispro (Insulin Lispro 100 Unit/Ml 3 Ml Vial) 0 unit SUBCUT QIDACHS [facility]; Protocol Last Admin: 04/11/24 07:33 Dose: Not Given Documented By: VIANEY Non-Admin Reason: No Insulin Coverage Isosorbide Mononitrate (Isosorbide Mononitrate 30 Mg Tab.Er.24h) 30 mg PO DAILY [facility]; Protocol Last Admin: 04/11/24 08:27 Dose: 30 mg Documented By: VIANEY Magnesium Hydroxide (Milk Of Magnesia 30 Ml Oral.Susp) 30 ml PO DAILY PRN PRN Reason: Constipation Melatonin (Melatonin 3 Mg Tablet) 6 mg PO BEDTIME PRN PRN Reason: Insomnia Multivitamins/Vitamin C (Multivitamin Tablet) 1 tab PO DAILY [facility] Last Admin: 04/11/24 08:27 Dose: 1 tab Documented By: VIANEY Mycophenolate Sodium (Mycophenolate Sodium 180 Mg Tablet.) 180 mg PO BID [facility] Last Admin: 04/11/24 08:27 Dose: 180 mg Documented By: VIANEY Pt Own( Envarsus 1mg Tablet,Extended Release 24hr) 10 mg PO DAILY [facility] Last Admin: 04/11/24 08:27 Dose: 10 mg Documented By: VIANEY Omeprazole (Omeprazole 20 Mg Capsule.) 20 mg PO DAILY@0630 [facility] Last Admin: 04/11/24 06:14 Dose: 20 mg Documented By: NEVILLE Ondansetron HCl (Ondansetron Hcl 4 Mg/2 Ml Vial) 4 mg IVPUSH Q6H PRN PRN Reason: Nausea Last Admin: 04/09/24 23:09 Dose: 4 mg Documented By: NEVILLE Prednisone (Prednisone 2.5 Mg Tablet) 7.5 mg PO DAILY [facility] Last Admin: 04/11/24 08:27 Dose: 7.5 mg Documented By: VIANEY Sertraline HCl (Sertraline Hcl 25 Mg Tablet) 25 mg PO DAILY [facility] Last Admin: 04/11/24 08:27 Dose: 25 mg Documented By: VIANEY Sodium Bicarbonate (Sodium Bicarbonate 650 Mg Tablet) 1,300 mg PO BID [facility] Last Admin: 04/11/24 08:27 Dose: 1,300 mg Documented By: VIANEY Sodium Chloride (0.9 % Sodium Chloride Flush 3 Ml Syringe) 3 ml IVFLUSH QSHIFT [facility] Last Admin: 04/11/24 08:28 Dose: 3 ml Documented By: VIANEY Sucralfate (Sucralfate 1 Gm Tablet) 1 gm PO QIDACHS [facility] Last Admin: 04/11/24 08:27 Dose: 1 gm Documented By: VIANEY Labs 04/10/24 05:26 04/10/24 05:26 Labs: Laboratory Results - last 24 hr 04/09/24 04/10/24 04/10/24 05:38 11:29 16:23 POC Glucose 156 H 169 H Tacrolimus 4.2 L 04/10/24 04/11/24 20:52 07:27 POC Glucose 113 100 Tacrolimus Microbiology Microbiology Results: Microbiology 12/19/24 12:00 Gram Stain - Final Pleural Fluid Routine Culture - Final No growth after 2 days Anaerobic Culture - Preliminary No growth to date. Assessment and Plan (1) Chronic kidney disease (CKD), stage IV (severe): Status: Acute Plan 63F [facility] ESRD s/p DDKT (02/[address] bermudez), 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, HTN, hfpef, dm, anemia of chronic disease, carcinoid of appendix, mood disorder, recent left femoral neck fracture 02/11/24, sent in from SNF for anemia Acute on chronic anemia of chronic disease No obvious bleeding, iron studies c/w chronic disease Transfused 1 unit, monitor, improved appropriately Right-sided effusion and opacity Thoracic appreciated, chest tube placed, serous, mostly neutrophils, no organisms Concern for malignancy versus organizing pneumonia pulm appreciated, added Unasyn labs consistent with exudate Acute kidney injury on CKD 5 in patient with rejected renal transplant Nephro following Continue immunosuppressants - dose adjusted renal ultrasound negative for hydro Monitor BMP Hypertension Continue amlodipine, carvedilol Diabetes with hyperglycemia Insulin sliding scale DVT prophylaxis with heparin subQ Full code reason for continued hospitalization:working up effusion, shai Quality Stroke Does the patient have a stroke diagnosis?: No VTE Prior VTE?: No VTE Risk Level:: Medical - moderate - high VTE Device Contraindication: Treatment Not Indicated VTE Drug Contraindication: N/A - Med Ordered
[2024-04-11 11:17] LABS: Glucose, Whole Blood 136 mg/dL (60-115)
[2024-04-11] MEDS: HYDROmorphone HCl 2 MG TABLET 4 MG PO ×2 (11:29→16:49)
[2024-04-11] MEDS: Ampicillin Sodium/Sulbactam Na 1.5 GM in 0.9 % Sodium Chloride 100 ML IV (11:29)
[2024-04-11 16:00] VITALS: BP 128/60; PULSE 55; RESP 16; TEMP 36.8; O2SAT 95
[2024-04-11 16:40] LABS: Glucose, Whole Blood 216 mg/dL (60-115)
[2024-04-11] MEDS: Insulin Lispro 100 UNIT/ML 3 ML VIAL SUBCUT ×2 (16:48→20:52)
[2024-04-11 19:05] VITALS: BP 134/62; PULSE 55; RESP 16; TEMP 36.4; O2SAT 97
[2024-04-11 19:51] LABS: Glucose, Whole Blood 185 mg/dL (60-115)
[2024-04-11 20:56] VITALS: PULSE 55
[2024-04-12] MEDS: ondansetron HCL 4 MG/2 ML VIAL IVPUSH (03:08)
[2024-04-12] MEDS: HYDROmorphone HCl 0.5 MG/0.5 ML SYRINGE IVPUSH ×4 (03:08→14:53)
[2024-04-12 03:22] VITALS: BP 149/70; PULSE 65; RESP 18; TEMP 37; O2SAT 98
[2024-04-12] MEDS: Omeprazole 20 MG CAPSULE.DR PO (05:45)
[2024-04-12] MEDS: Heparin Sodium,Porcine 5,000 UNIT/ML VIAL 5000 UNIT SUBCUT ×2 (05:45→16:34)
[2024-04-12 06:17] LABS: Hematocrit 28.2 % (37.0-47.0); Mean Corpuscular HGB Conc 28.4 g/dl (31.0-35.0); Mean Corpuscular Volume 95.3 fL (80.0-98.0); Mean Platelet Volume 9.7 fL (9.4-12.3); Platelet Count 275 X10*3/uL (160-400); Red Blood Count 2.96 X10*6/uL (4.20-5.50); Red Cell Distribution Width 16.6 % (11.0-16.0); White Blood Count 9.6 X10*3/uL (4.8-10.8)
[2024-04-12 06:31] LABS: Anion Gap 17 (12-20); Blood Urea Nitrogen 63 mg/dL (9-16); Calcium 8.6 mg/dL (8.4-10.2); Carbon Dioxide 18 mmol/L (22-29); Chloride 110 mmol/L (96-108); Creatinine Clr Calc Pharmacy 10.5; Estimated Glomerular Filt Rate 9; Glucose Random 98 mg/dL (60-115); Sodium 141 mmol/L (135-145)
--- NOTE | 2024-04-12 07:15 | PM.PNTS ---
Subjective Subjective Date of Service: 04/12/24 Interval history: No new or acute respiratory symptoms. Pleur-evac essentially no output over the weekend. No air leak. Physical Exam Vital Signs: Vital Signs: Last Vital Signs Temp 98.6 F 04/12/24 03:22 Pulse 65 04/12/24 03:22 Resp 18 04/12/24 03:22 BP 149/70 H 04/12/24 03:22 Pulse Ox 98 04/12/24 03:22 O2 Del Method Room Air 04/12/24 03:22 O2 Flow Rate 2 04/08/24 12:20 BMI result Body Mass Index 19.4 Chest: Other: Pleur-evac as noted above. Minimal output Procedures Date of Service Date of Service: 04/12/24 Progress Note: A&P Assessment and plan (1) Pleural effusion, right: Status: Acute Plan Awaiting final pathology from pleural fluid cytology results. If non neoplastic, and with minimal output, we will remove chest tube. Time Spent With Patient Time: Total time managing care of this patient today ____ minutes. Quality Stroke Does the patient have a stroke diagnosis?: No VTE Prior VTE?: No VTE Risk Level:: Medical - moderate - high VTE Device Contraindication: Treatment Not Indicated VTE Drug Contraindication: N/A - Med Ordered
[2024-04-12 07:18] VITALS: BP 136/66; PULSE 53; RESP 16; TEMP 36.9; O2SAT 97
[2024-04-12 07:25] LABS: Glucose, Whole Blood 94 mg/dL (60-115)
[2024-04-12] MEDS: predniSONE 2.5 MG TABLET 7.5 MG PO (08:18)
[2024-04-12] MEDS: Sodium Bicarbonate 650 MG TABLET 1300 MG PO ×2 (08:18→20:00)
[2024-04-12] MEDS: Multivitamin TABLET 1 TAB PO (08:18)
[2024-04-12] MEDS: amLODIPine Besylate 10 MG TABLET PO (08:18)
[2024-04-12] MEDS: carvediloL 25 MG TABLET PO ×2 (08:18→20:00)
[2024-04-12] MEDS: Isosorbide Mononitrate 30 MG TAB.ER.24H PO (08:18)
[2024-04-12] MEDS: Sucralfate 1 GM TABLET PO ×4 (08:18→20:01)
[2024-04-12] MEDS: Sertraline HCL 25 MG TABLET PO (08:18)
[2024-04-12] MEDS: 0.9 % Sodium Chloride Flush 3 ML SYRINGE IVFLUSH ×3 (08:19→20:07)
[2024-04-12] MEDS: Mycophenolate Sodium 180 MG TABLET.DR PO ×2 (08:22→20:01)
[2024-04-12] MEDS: ENVARSUS 1 MG 10 EACH PO (08:34)
--- NOTE | 2024-04-12 08:37 | HO.PM.IMPN ---
Subjective Subjective Date of Service: 04/12/24 Interval History: improving Physical Exam Vital Signs: Vital Signs: Last Vital Signs Temp 98.4 F 04/12/24 07:18 Pulse 53 04/12/24 07:18 Resp 16 04/12/24 07:18 BP 136/66 04/12/24 07:18 Pulse Ox 97 04/12/24 07:18 O2 Del Method Room Air 04/12/24 07:18 O2 Flow Rate 2 04/08/24 12:20 BMI result Body Mass Index 19.4 Const: General: no acute distress and alert Nutritional Appearance: not obese Orientation/consciousness: Other orientation findings ( oriented) HEENT: Head: Yes atraumatic Eyes: General: appearance normal, both eyes and all related structures Sclerae: sclerae normal EOM: EOMs intact bilaterally Neck: Neck: Yes supple Lymphatic: no lymphadenopathy noted Resp: Effort & Inspection: normal respiratory effort and no use of accessory muscles Auscultation: crackles (Bibasilar) Cardio: Rate: regular rate Rhythm: regular rhythm Heart sounds: no gallops, no murmurs and no rubs Skin: General skin exam: other ( warm) Extrem: General: No clubbing, No cyanosis and No edema Objective Data Active Medications Acetaminophen (Acetaminophen 325 Mg Tablet) 650 mg PO Q6H PRN PRN Reason: Pain, Mild (Pain Scale 1-3), fever or headache Last Admin: 04/08/24 14:34 Dose: 650 mg Documented By: VIANEY Amlodipine Besylate (Amlodipine Besylate 10 Mg Tablet) 10 mg PO DAILY [facility]; Protocol Last Admin: 04/12/24 08:18 Dose: 10 mg Documented By: RODRIGUEZ Bisacodyl (Bisacodyl 10 Mg Supp.Rect) 10 mg [place] DAILY PRN PRN Reason: no result from MOM by next shift Calcium Carbonate (Calcium Carbonate 750 Mg Tab.Chew) 750 mg PO Q4H PRN PRN Reason: Heartburn Carvedilol (Carvedilol 25 Mg Tablet) 25 mg PO BID [facility]; Protocol Last Admin: 04/12/24 08:18 Dose: 25 mg Documented By: RODRIGUEZ Diphenhydramine HCl (Diphenhydramine Hcl 25 Mg Capsule) 25 mg PO BID PRN PRN Reason: itchiness Docusate Sodium (Docusate Sodium 100 Mg Capsule) 100 mg PO DAILY PRN PRN Reason: Constipation Glucose (Glucose Gel 15 Gm Gel..Gram.) 15 gm PO Q15M PRN; Protocol PRN Reason: per Hypoglycemia Standing Ord. Heparin Sodium (Porcine) (Heparin Sodium,Porcine 5,000 Unit/Ml Vial) 5,000 unit SUBCUT Q12H [facility] Last Admin: 04/12/24 05:45 Dose: 5,000 unit Documented By: NEVILLE Hydromorphone HCl (Hydromorphone Hcl 0.5 Mg/0.5 Ml Syringe) 0.5 mg IVPUSH Q3H PRN; Protocol PRN Reason: Pain, Severe (Pain Scale 7-10) Last Admin: 04/12/24 05:51 Dose: 0.5 mg Documented By: NEVILLE Hydromorphone HCl (Hydromorphone Hcl 2 Mg Tablet) 4 mg PO Q4H PRN PRN Reason: Pain, Moderate(Pain Scale 4-6) Last Admin: 04/11/24 16:49 Dose: 4 mg Documented By: VIANEY Dextrose (D10) 250 mls @ 750 mls/hr IV Q15M PRN; Protocol PRN Reason: per Hypoglycemia Standing Ord. Ampicillin Sodium/Sulbactam (Sodium 1.5 gm/ Sodium Chloride) 100 mls @ 200 mls/hr IV Q24H [facility] Last Infusion: 04/11/24 12:04 Dose: Infused Documented By: VIANEY Insulin Human Lispro (Insulin Lispro 100 Unit/Ml 3 Ml Vial) 0 unit SUBCUT QIDACHS [facility]; Protocol Last Admin: 04/12/24 08:06 Dose: Not Given Documented By: RODRIGUEZ Non-Admin Reason: No Insulin Coverage Isosorbide Mononitrate (Isosorbide Mononitrate 30 Mg Tab.Er.24h) 30 mg PO DAILY [facility]; Protocol Last Admin: 04/12/24 08:18 Dose: 30 mg Documented By: RODRIGUEZ Magnesium Hydroxide (Milk Of Magnesia 30 Ml Oral.Susp) 30 ml PO DAILY PRN PRN Reason: Constipation Melatonin (Melatonin 3 Mg Tablet) 6 mg PO BEDTIME PRN PRN Reason: Insomnia Multivitamins/Vitamin C (Multivitamin Tablet) 1 tab PO DAILY [facility] Last Admin: 04/12/24 08:18 Dose: 1 tab Documented By: RODRIGUEZ Mycophenolate Sodium (Mycophenolate Sodium 180 Mg Tablet.) 180 mg PO BID [facility] Last Admin: 04/12/24 08:22 Dose: 180 mg Documented By: RODRIGUEZ Pt Own( Envarsus 1mg Tablet,Extended Release 24hr) 10 mg PO DAILY [facility] Last Admin: 04/11/24 08:27 Dose: 10 mg Documented By: VIANEY Omeprazole (Omeprazole 20 Mg Capsule.) 20 mg PO DAILY@0630 [facility] Last Admin: 04/12/24 05:45 Dose: 20 mg Documented By: NEVILLE Ondansetron HCl (Ondansetron Hcl 4 Mg/2 Ml Vial) 4 mg IVPUSH Q6H PRN PRN Reason: Nausea Last Admin: 04/12/24 03:08 Dose: 4 mg Documented By: NEVILLE Prednisone (Prednisone 2.5 Mg Tablet) 7.5 mg PO DAILY [facility] Last Admin: 04/12/24 08:18 Dose: 7.5 mg Documented By: RODRIGUEZ Sertraline HCl (Sertraline Hcl 25 Mg Tablet) 25 mg PO DAILY [facility] Last Admin: 04/12/24 08:18 Dose: 25 mg Documented By: RODRIGUEZ Sodium Bicarbonate (Sodium Bicarbonate 650 Mg Tablet) 1,300 mg PO BID [facility] Last Admin: 04/12/24 08:18 Dose: 1,300 mg Documented By: RODRIGUEZ Sodium Chloride (0.9 % Sodium Chloride Flush 3 Ml Syringe) 3 ml IVFLUSH QSHIFT [facility] Last Admin: 04/12/24 08:19 Dose: 3 ml Documented By: RODRIGUEZ Sucralfate (Sucralfate 1 Gm Tablet) 1 gm PO QIDACHS [facility] Last Admin: 04/12/24 08:18 Dose: 1 gm Documented By: RODRIGUEZ Labs 04/12/24 05:45 04/12/24 05:45 Labs: Laboratory Results - last 24 hr 04/11/24 04/11/24 04/11/24 11:13 16:25 19:40 MCV MCH MCHC RDW Plt Count MPV Absolute Nucleated RBC Nucleated RBC % (auto) Anion Gap Estim Creat Clear Calc Estimated GFR POC Glucose 136 H 216 H 185 H Random Glucose Calcium 04/12/24 04/12/24 05:45 07:21 MCV 95.3 MCH 27.0 MCHC 28.4 L RDW 16.6 H Plt Count 275 MPV 9.7 Absolute Nucleated RBC 0.000 Nucleated RBC % (auto) 0.0 Anion Gap 17 Estim Creat Clear Calc 10.5 Estimated GFR 9 POC Glucose 94 Random Glucose 98 Calcium 8.6 Microbiology Microbiology Results: Microbiology 04/08/24 12:00 Gram Stain - Final Pleural Fluid Routine Culture - Final No growth after 2 days Anaerobic Culture - Preliminary No growth to date. Assessment and Plan (1) Chronic kidney disease (CKD), stage IV (severe): Status: Acute Plan 63F [facility] ESRD s/p DDKT (02/[address] bermudez), 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, HTN, hfpef, dm, anemia of chronic disease, carcinoid of appendix, mood disorder, recent left femoral neck fracture 02/11/24, sent in from SNF for anemia Acute on chronic anemia of chronic disease No obvious bleeding, iron studies c/w chronic disease Transfused 1 unit, monitor, improved appropriately Right-sided effusion and opacity Thoracic appreciated, chest tube placed, serous, mostly neutrophils, no organisms Concern for malignancy versus organizing pneumonia thoracic following -plan to follow up cytology, if negative will dc chest tube pulm appreciated, continue Unasyn labs [place] exudate Acute kidney injury on CKD 5 in patient with rejected renal transplant Nephro following Continue immunosuppressants - dose adjusted renal ultrasound negative for hydro Monitor BMP Hypertension Continue amlodipine, carvedilol Diabetes with hyperglycemia Insulin sliding scale DVT prophylaxis with heparin subQ Full code reason for continued hospitalization:working up effusion, shai Quality Stroke Does the patient have a stroke diagnosis?: No VTE Prior VTE?: No VTE Risk Level:: Medical - moderate - high VTE Device Contraindication: Treatment Not Indicated VTE Drug Contraindication: N/A - Med Ordered
[2024-04-12 11:09] LABS: Glucose, Whole Blood 150 mg/dL (60-115)
--- NOTE | 2024-04-12 11:13 | MHC.CM.PN ---
Addendum entered by Shavonne Dahl RN 04/12/24 15:56: notice delivered. Original Note: Per MD rounds patient not medically cleared for dc. Updates to [facility], who is following for return. CM will continue to follow.
--- NOTE | 2024-04-12 12:48 | P.PNNP_ITS ---
Subjective Subjective Date of Service: 04/12/24 Interval history: Events noted Physical Exam 2 Vital Signs: Vital Signs: Last Vital Signs Temp 98.4 F 04/12/24 07:18 Pulse 53 04/12/24 07:18 Resp 16 04/12/24 07:18 BP 136/66 04/12/24 07:18 Pulse Ox 97 04/12/24 07:18 O2 Del Method Room Air 04/12/24 07:18 O2 Flow Rate 2 04/08/24 12:20 BMI result Body Mass Index 19.4 Const: General: no acute distress, alert and awake Resp: Effort & Inspection: normal respiratory effort and able to speak in complete sentences Auscultation: clear to auscultation bilaterally Cardio: Jugular venous distension: no JVD Rate: regular rate Rhythm: r egular rhythm Heart sounds: S1 normal heart sound present and S2 normal heart sound present GI: Palpation (GI): Soft to palpation and nontender : General: Yes no CVA tenderness Back/Spine/Pelvis: Back: no CVA tenderness Skin: Lesions: no lesions Rashes: no rashes Extrem: General: No edema Objective Data Labs 04/12/24 05:45 04/12/24 05:45 Labs: Laboratory Results - last 24 hr 04/11/24 04/11/24 04/12/24 16:25 19:40 05:45 WBC 9.6 RBC 2.96 L Hgb 8.0 L Hct 28.2 L MCV 95.3 MCH 27.0 MCHC 28.4 L RDW 16.6 H Plt Count 275 MPV 9.7 Absolute Nucleated RBC 0.000 Nucleated RBC % (auto) 0.0 Sodium 141 Potassium 4.0 Chloride 110 H Carbon Dioxide 18 L Anion Gap 17 BUN 63 H Creatinine 4.69 H* Estim Creat Clear Calc 10.5 Estimated GFR 9 POC Glucose 216 H 185 H Random Glucose 98 Calcium 8.6 04/12/24 04/12/24 07:21 11:02 WBC RBC Hgb Hct MCV MCH MCHC RDW Plt Count MPV Absolute Nucleated RBC Nucleated RBC % (auto) Sodium Potassium Chloride Carbon Dioxide Anion Gap BUN Creatinine Estim Creat Clear Calc Estimated GFR POC Glucose 94 150 H Random Glucose Calcium Microbiology Microbiology Results: Microbiology 04/08/24 12:00 Pleural Fluid Gram Stain - Final 04/08/24 12:00 Pleural Fluid Routine Culture - Final No growth after 2 days 04/08/24 12:00 Pleural Fluid Anaerobic Culture - Preliminary No growth to date. 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 Will discontinue if suggestion of malignancy by pleural fluid culture (pending). continue tacrolimus as ordered, recent level 4 .2 She will follow probably declining renal transplant function, may need dialysis eventually no need for dialysis at this time avoid nephrotoxins y monitor I&O closely will continue to follow Time Spent With Patient Time: Total time managing care of this patient today ____ minutes. Progress Note: Quality Stroke Does the patient have a stroke diagnosis?: No
[2024-04-12] MEDS: Ampicillin Sodium/Sulbactam Na 1.5 GM in 0.9 % Sodium Chloride 100 ML IV (14:02)
--- NOTE | 2024-04-12 14:11 | PC.NURSE ---
Large amount of yellow drainage noted on pad under patient. Dressing to right flank from chest tube removal saturated. New dressing with xeroform applied at 1330. PA notifed.
[2024-04-12 15:21] VITALS: BP 131/63; PULSE 51; RESP 16; TEMP 36.6; O2SAT 100
--- NOTE | 2024-04-12 15:28 | MHC.CLN ---
F/U DIET=DIABETIC 1800 KCALS. SUPPLEMENT ENSURE CLEAR TID PROVIDES 720 KCALS, 24 G PROTEIN. PT WITH INCREASED NUTRITION RISK R/T PRESSURE INJURY. STAGE II PRESSURE INJURY TO COCCYX. SUPPLEMENT TO PROMOTE WOUND HEALING. PO INTAKE VARIABLE, WITH MOST MEALS 25-75%. MONITOR PO INTAKE AND ENCOURAGE SUPPLEMENTS.
[2024-04-12 16:08] LABS: Glucose, Whole Blood 205 mg/dL (60-115)
[2024-04-12] MEDS: Insulin Lispro 100 UNIT/ML 3 ML VIAL SUBCUT ×2 (16:35→20:01)
[2024-04-12 19:19] VITALS: BP 160/70; PULSE 58; RESP 15; TEMP 36.5; O2SAT 98
[2024-04-12 19:35] LABS: Glucose, Whole Blood 210 mg/dL (60-115)
[2024-04-13 03:31] VITALS: BP 160/75; PULSE 58; RESP 16; TEMP 36.6; O2SAT 98
[2024-04-13] MEDS: Heparin Sodium,Porcine 5,000 UNIT/ML VIAL 5000 UNIT SUBCUT (05:38)
[2024-04-13] MEDS: Omeprazole 20 MG CAPSULE.DR PO (05:38)
[2024-04-13 07:29] VITALS: BP 153/71; PULSE 59; RESP 18; TEMP 36.3; O2SAT 99
[2024-04-13 07:35] LABS: Glucose, Whole Blood 106 mg/dL (60-115)
[2024-04-13] MEDS: Mycophenolate Sodium 180 MG TABLET.DR PO (08:10)
[2024-04-13] MEDS: Sodium Bicarbonate 650 MG TABLET 1300 MG PO (08:10)
[2024-04-13] MEDS: predniSONE 2.5 MG TABLET 7.5 MG PO (08:10)
[2024-04-13] MEDS: amLODIPine Besylate 10 MG TABLET PO (08:10)
[2024-04-13] MEDS: Sucralfate 1 GM TABLET PO ×2 (08:10→12:15)
[2024-04-13] MEDS: Sertraline HCL 25 MG TABLET PO (08:11)
[2024-04-13] MEDS: carvediloL 25 MG TABLET PO (08:11)
[2024-04-13] MEDS: Multivitamin TABLET 1 TAB PO (08:11)
[2024-04-13] MEDS: HYDROmorphone HCl 2 MG TABLET 4 MG PO (08:11)
[2024-04-13] MEDS: Isosorbide Mononitrate 30 MG TAB.ER.24H PO (08:11)
[2024-04-13] MEDS: ENVARSUS 1 MG 10 EACH PO (08:12)
[2024-04-13] MEDS: 0.9 % Sodium Chloride Flush 3 ML SYRINGE IVFLUSH (08:22)
--- NOTE | 2024-04-13 09:10 | HO.PM.IMPN ---
Subjective Subjective Date of Service: 04/13/24 Interval History: pain improved now chest tube removed Physical Exam Vital Signs: Vital Signs: Last Vital Signs Temp 97.3 F 04/13/24 07:29 Pulse 59 04/13/24 07:29 Resp 18 04/13/24 07:29 BP 153/71 H 04/13/24 07:29 Pulse Ox 99 04/13/24 07:29 O2 Del Method Room Air 04/13/24 07:29 O2 Flow Rate 2 04/08/24 12:20 BMI result Body Mass Index 19.4 Const: General: no acute distress, alert and awake Resp: Effort & Inspection: normal respiratory effort and able to speak in complete sentences Auscultation: clear to auscultation bilaterally Cardio: Jugular venous distension: no JVD Rate: regular rate Rhythm: regular rhythm Heart sounds: S1 normal heart sound present and S2 normal heart sound present GI: Palpation (GI): Soft to palpation and nontender : General: Yes no CVA tenderness Back/Spine/Pelvis: Back: no CVA tenderness Skin: Lesions: no lesions Rashes: no rashes Extrem: General: No edema Objective Data Active Medications Acetaminophen (Acetaminophen 325 Mg Tablet) 650 mg PO Q6H PRN PRN Reason: Pain, Mild (Pain Scale 1-3), fever or headache Last Admin: 04/08/24 14:34 Dose: 650 mg Documented By: VIANEY Amlodipine Besylate (Amlodipine Besylate 10 Mg Tablet) 10 mg PO DAILY [facility]; Protocol Last Admin: 04/13/24 08:10 Dose: 10 mg Documented By: DALLAS Bisacodyl (Bisacodyl 10 Mg Supp.Rect) 10 mg TN DAILY PRN PRN Reason: no result from MOM by next shift Calcium Carbonate (Calcium Carbonate 750 Mg Tab.Chew) 750 mg PO Q4H PRN PRN Reason: Heartburn Carvedilol (Carvedilol 25 Mg Tablet) 25 mg PO BID [facility]; Protocol Last Admin: 04/13/24 08:11 Dose: 25 mg Documented By: DALLAS Diphenhydramine HCl (Diphenhydramine Hcl 25 Mg Capsule) 25 mg PO BID PRN PRN Reason: itchiness Docusate Sodium (Docusate Sodium 100 Mg Capsule) 100 mg PO DAILY PRN PRN Reason: Constipation Glucose (Glucose Gel 15 Gm Gel..Gram.) 15 gm PO Q15M PRN; Protocol PRN Reason: per Hypoglycemia Standing Ord. Heparin Sodium (Porcine) (Heparin Sodium,Porcine 5,000 Unit/Ml Vial) 5,000 unit SUBCUT Q12H [facility] Last Admin: 04/13/24 05:38 Dose: 5,000 unit Documented By: RADHA Hydromorphone HCl (Hydromorphone Hcl 0.5 Mg/0.5 Ml Syringe) 0.5 mg IVPUSH Q3H PRN; Protocol PRN Reason: Pain, Severe (Pain Scale 7-10) Last Admin: 04/12/24 14:53 Dose: 0.5 mg Documented By: RODRIGUEZ Hydromorphone HCl (Hydromorphone Hcl 2 Mg Tablet) 4 mg PO Q4H PRN PRN Reason: Pain, Moderate(Pain Scale 4-6) Last Admin: 04/13/24 08:11 Dose: 4 mg Documented By: DALLAS Dextrose (D10) 250 mls @ 750 mls/hr IV Q15M PRN; Protocol PRN Reason: per Hypoglycemia Standing Ord. Ampicillin Sodium/Sulbactam (Sodium 1.5 gm/ Sodium Chloride) 100 mls @ 200 mls/hr IV Q24H [facility] Last Infusion: 04/12/24 14:49 Dose: Infused Documented By: RODRIGUEZ Insulin Human Lispro (Insulin Lispro 100 Unit/Ml 3 Ml Vial) 0 unit SUBCUT QIDACHS [facility]; Protocol Last Admin: 04/13/24 08:09 Dose: Not Given Documented By: DALLAS Non-Admin Reason: No Insulin Coverage Isosorbide Mononitrate (Isosorbide Mononitrate 30 Mg Tab.Er.24h) 30 mg PO DAILY [facility]; Protocol Last Admin: 04/13/24 08:11 Dose: 30 mg Documented By: DALLAS Magnesium Hydroxide (Milk Of Magnesia 30 Ml Oral.Susp) 30 ml PO DAILY PRN PRN Reason: Constipation Melatonin (Melatonin 3 Mg Tablet) 6 mg PO BEDTIME PRN PRN Reason: Insomnia Multivitamins/Vitamin C (Multivitamin Tablet) 1 tab PO DAILY [facility] Last Admin: 04/13/24 08:11 Dose: 1 tab Documented By: DALLAS Mycophenolate Sodium (Mycophenolate Sodium 180 Mg Tablet.Dr) 180 mg PO BID [facility] Last Admin: 04/13/24 08:10 Dose: 180 mg Documented By: DALLAS Pt Own( Envarsus 1mg Tablet,Extended Release 24hr) 10 mg PO DAILY [facility] Last Admin: 04/13/24 08:12 Dose: 10 mg Documented By: DALLAS Omeprazole (Omeprazole 20 Mg Capsule.) 20 mg PO DAILY@0630 [facility] Last Admin: 04/13/24 05:38 Dose: 20 mg Documented By: RADHA Ondansetron HCl (Ondansetron Hcl 4 Mg/2 Ml Vial) 4 mg IVPUSH Q6H PRN PRN Reason: Nausea Last Admin: 04/12/24 03:08 Dose: 4 mg Documented By: NEVILLE Prednisone (Prednisone 2.5 Mg Tablet) 7.5 mg PO DAILY [facility] Last Admin: 04/13/24 08:10 Dose: 7.5 mg Documented By: DALLAS Sertraline HCl (Sertraline Hcl 25 Mg Tablet) 25 mg PO DAILY [facility] Last Admin: 04/13/24 08:11 Dose: 25 mg Documented By: DALLAS Sodium Bicarbonate (Sodium Bicarbonate 650 Mg Tablet) 1,300 mg PO BID [facility] Last Admin: 04/13/24 08:10 Dose: 1,300 mg Documented By: DALLAS Sodium Chloride (0.9 % Sodium Chloride Flush 3 Ml Syringe) 3 ml IVFLUSH QSHIFT [facility] Last Admin: 04/13/24 08:22 Dose: 3 ml Documented By: DALLAS Sucralfate (Sucralfate 1 Gm Tablet) 1 gm PO QIDACHS [facility] Last Admin: 04/13/24 08:10 Dose: 1 gm Documented By: DALLAS Labs 04/12/24 05:45 04/12/24 05:45 Labs: Laboratory Results - last 24 hr 04/12/24 04/12/24 04/12/24 11:02 16:03 19:29 POC Glucose 150 H 205 H 210 H 04/13/24 07:28 POC Glucose 106 Microbiology Microbiology Results: Microbiology 04/08/24 12:00 Gram Stain - Final Pleural Fluid Routine Culture - Final No growth after 2 days Anaerobic Culture - Final NO GROWTH AFTER 5 DAYS Assessment and Plan (1) Chronic kidney disease (CKD), stage IV (severe): Status: Acute Plan 63F [facility] ESRD s/p DDKT (02/[address] bermudez), 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, HTN, hfpef, dm, anemia of chronic disease, carcinoid of appendix, mood disorder, recent left femoral neck fracture 02/11/24, sent in from SNF for anemia Acute on chronic anemia of chronic disease No obvious bleeding, iron studies c/w chronic disease Transfused 1 unit, improved appropriately Right-sided effusion and opacity Thoracic appreciated, chest tube placed, serous, mostly neutrophils, no organisms Concern for malignancy versus organizing pneumonia cytology negative for malignant cells, chest tube removed pulm appreciated, continue Unasyn (augmentin on discharge), then repeat imaging in about 3 weeks to confirm resolution pleural labs borderline exudate Acute kidney injury on CKD 5 in patient with rejected renal transplant Nephro following Continue immunosuppressants - dose adjusted renal ultrasound negative for hydro Monitor BMP outpatient follow up with dr. bermudez Hypertension Continue amlodipine, carvedilol Diabetes with hyperglycemia Insulin sliding scale DVT prophylaxis with heparin subQ Full code reason for continued hospitalization:safe dispo Quality Stroke Does the patient have a stroke diagnosis?: No VTE Prior VTE?: No VTE Risk Level:: Medical - moderate - high VTE Device Contraindication: Treatment Not Indicated VTE Drug Contraindication: N/A - Med Ordered
--- NOTE | 2024-04-13 09:28 | PM.PNTS ---
Subjective Subjective Date of Service: 04/13/24 Interval history: Patient was chest tube removed yesterday. Apparently there was some drainage on the dressing last evening. Evaluating chest tube dressing site today. Patient has no acute respiratory complaints. Physical Exam Vital Signs: Vital Signs: Last Vital Signs Temp 97.3 F 04/13/24 07:29 Pulse 59 04/13/24 07:29 Resp 18 04/13/24 07:29 BP 153/71 H 04/13/24 07:29 Pulse Ox 99 04/13/24 07:29 O2 Del Method Room Air 04/13/24 07:29 O2 Flow Rate 2 04/08/24 12:20 BMI result Body Mass Index 19.4 Chest: Other: Right posterolateral dressing evaluated and clean dry and intact with no evidence of drainage. Procedures Date of Service Date of Service: 04/13/24 Progress Note: A&P Assessment and plan (1) Pleural effusion, right: Status: Acute Plan At present, continue local wound care and informed with dressing changes secured day with Vaseline gauze or Adaptic, 4x4s, and tape. We will follow up p.r.n.. Time Spent With Patient Time: Total time managing care of this patient today ____ minutes. Quality Stroke Does the patient have a stroke diagnosis?: No VTE Prior VTE?: No VTE Risk Level:: Medical - moderate - high VTE Device Contraindication: Treatment Not Indicated VTE Drug Contraindication: N/A - Med Ordered
--- NOTE | 2024-04-13 10:41 | PM.DS ---
DS: Providers Provider Date of Service: 04/13/24 Date of admission: 04/07/24 17:43 Date of discharge: 04/13/24 Primary care physician: Marita Wetzel DO Consults: 04/07/24 17:39 Consult to Nephrology Routine Consulting Provider: [facility] Reason for consultation: shai, renal transplant 04/07/24 17:42 Consult to Thoracic Surgery Routine Consulting Provider: Gael Shirley Reason for consultation: right pleural effusion, weight loss 04/07/24 20:05 Consult to Wound Care Routine Reason for consultation: stage II to coccyx 04/09/24 09:44 Consult to Pulmonology Routine Consulting Provider: [facility] Reason for consultation: right sided effusion, ?mass DS: Diagnosis Discharge Diagnosis (1) Pleural effusion, right: Status: Acute DS: Summary Hospital Course Hospital Course: from initial hpi: 63F [facility] ESRD s/p DDKT (02/[address] bermudez), 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 in ED hgb 6.4, creatinine 4.46 (was 3.1 on 03/28/24). ct chest with right lung consolidation and effusion, possible neoplasm. Patient reports 2 weeks of shortness of breath. Left hip pain. Also reporting 100 lb weight loss over the last year. Unintentional related to poor appetite. Denies fever, chest pain, chills, no obvious bleed. hospital course: Patient was admitted for acute on chronic anemia of chronic disease. Iron studies were consistent with chronic disease. She was transfused 1 unit improved appropriately. For right-sided opacity and effusion was seen by thoracic, chest tube placed and serous, mostly neutrophils, no organisms, borderline exudative fluid was removed. Differential includes malignancy versus organizing pneumonia. Cytology was negative for malignant cells. Was seen by Pulmonary who recommended course of antibiotics followed by repeat imaging in about 3 weeks. On discharge patient will continue 1 week of Augmentin. Chest tube was removed. For acute kidney injury on CKD 5 inpatient with rejected renal transplant was seen by Nephrology who decrease CellCept to 180 mg b.i.d. due to possible malignancy, was continued on prednisone and Prograf. We will follow up outpatient with Nephrology. Creatinine stable at 4.5. For hypertension was continued on amlodipine and carvedilol. For diabetes with hyperglycemia was continued on insulin sliding scale. Time Attestation Discharge Coordination Time (in mins): 34 Quality: Safe Use of Opioids Does Pt have an Active Cancer Diagnosis on the Problem List?: No Quality: Stroke Does the patient have a stroke diagnosis?: No Physical Exam Vital Signs: Vital Signs: Last Vital Signs Temp 97.3 F 04/13/24 07:29 Pulse 59 04/13/24 07:29 Resp 18 04/13/24 07:29 BP 153/71 H 04/13/24 07:29 Pulse Ox 99 04/13/24 07:29 O2 Del Method Room Air 04/13/24 07:29 O2 Flow Rate 2 04/08/24 12:20 BMI result Body Mass Index 19.4 Chest: Other: Right posterolateral dressing evaluated and clean dry and intact with no evidence of drainage. DS: Data Data Completed and Pending Completed studies during hospitalization [Text1]: Pending at discharge 04/07/24 17:41 Cytology [PTH] Routine Labs on day of discharge: Laboratory Results - last 24 hr 04/12/24 04/12/24 04/12/24 11:02 16:03 19:29 POC Glucose 150 H 205 H 210 H 04/13/24 07:28 POC Glucose 106 Discharge Plan Discharge Anticipated Discharge Date/Time: 04/13/24 10:37 Patient Disposition: Xfer SNF Discharge Diagnosis: shai on ckd v, pneumonia, effusion on right Referrals: Marita Wetzel DO [Primary Care Provider] - 1 Week Discharge Medications: New mycophenolate sodium 360 mg Tablet,Delayed Release (Dr/Ec) 180 mg PO BID Qty: 0 0RF amoxicillin-pot clavulanate 500-125 mg tablet 1 tab PO Q12H Qty: 14 0RF Continued carvedilol 25 mg Tablet 25 mg PO BID Rx Instructions: must administer with a meal/food acetaminophen 325 mg Tablet 650 mg PO Q6H PRN (Reason: Fever) acetaminophen 325 mg Tablet 650 mg PO Q4H PRN (Reason: Mild Pain (Scale Score 1-4)) sucralfate 1 gram Tablet 1 g PO QIDACHS ondansetron HCl 4 mg Tablet 4 mg PO Q8H PRN (Reason: Nausea And Vomiting) isosorbide mononitrate 30 mg Tablet Extended Release 24 Hr 30 mg PO DAILY magnesium hydroxide [Milk of Magnesia] 400 mg/5 mL Suspension 30 ml PO DAILY PRN (Reason: no BM in 3 days) sodium bicarbonate 650 mg Tablet 1,300 mg PO BID bisacodyl [Dulcolax (bisacodyl)] 10 mg Suppository 10 mg GA DAILY PRN (Reason: no result from MOM by next shift) prednisone 2.5 mg Tablet 7.5 mg PO DAILY pantoprazole 40 mg Tablet,Delayed Release (Dr/Ec) 40 mg PO DAILY@0630 diphenhydramine HCl 25 mg Tablet 25 mg PO BID PRN (Reason: itchiness) Fleet Enema 19-7 gram/118 mL Enema 118 ml GA DAILY PRN (Reason: if no result from dulcolax within 2 hours) docusate sodium 100 mg Capsule 100 mg PO DAILY PRN (Reason: Constipation) sertraline 25 mg Tablet 25 mg PO DAILY Nephro Vitamins 0.8 mg Tablet 1 tab PO DAILY hydromorphone 4 mg Tablet 4 mg PO Q4H PRN (Reason: moderate to severe pain) tacrolimus 5 mg Capsule,Extended Release 24hr 10 mg PO DAILY Rx Instructions: must administer in the morning on an empty stomach, 1 hour before or 2 hours after a meal insulin lispro 200 unit/mL (3 mL) Insulin Pen 1 sliding scale dose SUBCUT USEASDIRECTD Rx Instructions: if 150-199 = 2 units, 200-249 = 4 units, 250-299 = 6 units, 300-349 = 8 units, 350-399 = 10 units, 400+ call glucagon 1 mg Kit 1 mg IM DAILY PRN (Reason: BG less than 70) dextrose 40 % Gel 20 g PO Q15M PRN (Reason: BG less than 70) Rx Instructions: until symptoms of low blood sugar are controlled amlodipine 10 mg tablet 10 mg PO DAILY Qty: 30 0RF Procrit 40,000 unit/mL solution 40,000 unit IV MO Rx Instructions: HOLD FOR HGB OVER 10 Discontinued mycophenolate sodium 360 mg Tablet,Delayed Release (Dr/Ec) 360 mg PO BID Discharge Orders: Discharge Order (Routine); Ordered 04/13/24 Ordered By: Ernie Brewer Diet: Advance to usual diet Activity on Discharge: As tolerated Stand Alone Forms: Patient Portal Discharge page Print Language: [place] Care Plan Goals: manage ckd and pneumonia Health Concerns: right lung opacity and effusion, worsening renal function Plan of Treatment: 7 more days augmentin, then repeat ct chest in about 3 weeks cellcept decreased, follow up with nephro Assessment: see above
[2024-04-13 10:57] VITALS: BP 153/71; PULSE 59; O2SAT 99
[2024-04-13 11:52] LABS: Glucose, Whole Blood 114 mg/dL (60-115)
[2024-04-13] MEDS: Ampicillin Sodium/Sulbactam Na 1.5 GM in 0.9 % Sodium Chloride 100 ML IV (12:11)
--- NOTE | 2024-04-13 12:46 | MHC.CM.PN ---
Patient medically cleared for dc to [facility]. 1pm transport via BLS. IMM delivered.
== END 2024-04-13 13:09 | disposition skilled nursing facility (03) | DRG 194 ==
LOC: HO.ED 16:32 → HO.EDOVER 17:48 → HO.S3 19:15
PROVIDERS: Nurse Practitioner Family; Physician Assistant Medical; Radiology Vascular & Interventional Radiology; Admitting Provider Internal Medicine; Emergency Provider Emergency Medicine; PCP Family Medicine; Visit Provider Internal Medicine
PROC: (CPT 32551; principal; 2024-04-08 11:30)
DX: J18.9 Pneumonia, unspecified organism (principal); D84.821 Immunodeficiency due to drugs; I13.2 Hypertensive heart and chronic kidney disease with heart failure and with stage 5 chronic kidney disease, or end stage renal disease; J91.8 Pleural effusion in other conditions classified elsewhere; T86.11 Kidney transplant rejection; N18.5 Chronic kidney disease, stage 5; I50.32 Chronic diastolic (congestive) heart failure; N17.9 Acute kidney failure, unspecified; E11.65 Type 2 diabetes mellitus with hyperglycemia; D63.1 Anemia in chronic kidney disease; E11.22 Type 2 diabetes mellitus with diabetic chronic kidney disease; Z79.4 Long term (current) use of insulin; Z79.52 Long term (current) use of systemic steroids; Z79.621 Long term (current) use of calcineurin inhibitor; Z79.899 Other long term (current) drug therapy
CPT/HCPCS: 32557; 36415; 71045; 71250; 76775; 80048; 80053; 80076; 80197; 82607; 82728; 82746; 82947; 83540; 83615; 83735; 84157; 85007; 85025; 85027; 85610; 85730; 86850; 86900; 86901; 86923; 87070; 87073; 87205; 88112; 88305; 89051; 97162; 99285; A7041; C1729; J0295; J1171; J1644; J2003; J2405; P9016

== ENCOUNTER 2024-04-07 17:43 | Outpatient (BNV) | payer MEDICARE, OTHER, SELFPAY | END 2024-04-08 11:30 | PROVIDERS: Admitting Provider Internal Medicine; Emergency Provider Emergency Medicine; PCP Family Medicine; Visit Provider Physician Assistant Surgical | DX: J90 Pleural effusion, not elsewhere classified (principal) | CPT/HCPCS: 32557 ==

== ENCOUNTER → 2024-04-07 17:43 | Outpatient (BNV) | payer MEDICARE, OTHER, SELFPAY | PROVIDERS: Admitting Provider Internal Medicine; Emergency Provider Emergency Medicine; Visit Provider Physician Assistant Surgical | DX: J90 Pleural effusion, not elsewhere classified (principal) | CPT/HCPCS: 32555 ==

== ENCOUNTER → 2024-04-07 17:43 | Outpatient (BNV) | payer MEDICARE, OTHER, SELFPAY | PROVIDERS: Admitting Provider Internal Medicine; Emergency Provider Emergency Medicine; Visit Provider Internal Medicine Pulmonary Disease | DX: J18.9 Pneumonia, unspecified organism (principal); J90 Pleural effusion, not elsewhere classified | CPT/HCPCS: 99222 ==

== ENCOUNTER → 2024-04-07 17:43 | Outpatient (BNV) | payer MEDICARE, OTHER, SELFPAY | PROVIDERS: Admitting Provider Internal Medicine; Emergency Provider Emergency Medicine; Visit Provider Surgery | DX: J90 Pleural effusion, not elsewhere classified (principal) | CPT/HCPCS: 99223; 99232 ==

== ENCOUNTER → 2024-04-07 17:43 | Outpatient (BNV) | payer MEDICARE, OTHER, SELFPAY | PROVIDERS: Admitting Provider Internal Medicine; Emergency Provider Emergency Medicine; Visit Provider Internal Medicine | DX: N18.4 Chronic kidney disease, stage 4 (severe) (principal); D63.1 Anemia in chronic kidney disease; J90 Pleural effusion, not elsewhere classified; T86.11 Kidney transplant rejection | CPT/HCPCS: 99223; 99232; 99233; 99239; 99499 ==

== ENCOUNTER → 2024-04-07 17:43 | Outpatient (BNV) | payer MEDICARE, OTHER, SELFPAY | PROVIDERS: Admitting Provider Internal Medicine; Emergency Provider Emergency Medicine; Visit Provider Nurse Practitioner Family | DX: N18.4 Chronic kidney disease, stage 4 (severe) (principal); N17.9 Acute kidney failure, unspecified; Z94.0 Kidney transplant status; D84.821 Immunodeficiency due to drugs; Z79.899 Other long term (current) drug therapy | CPT/HCPCS: 99222; 99232 ==

== ENCOUNTER 2024-05-27 16:58 | Inpatient (IN) | payer MEDICARE, OTHER, SELFPAY ==
[2024-05-27] VITALS (8 sets, daily range): BP systolic 107–144; BP diastolic 45–72; PULSE 58–79; RESP 16–20; TEMP 37.1–38.4; O2SAT 93–99; BMI 17.1
--- NOTE | ~2024-05-27 | US_ITS ---
EXAMINATION: BILATERAL CAROTID ULTRASOUND WITH DOPPLER HISTORY: acute CVA COMPARISON: There are no prior studies for comparison. TECHNIQUE: Real time and Color and Spectral doppler ultrasonography of the carotid and vertebral arteries was performed in multiple planes. FINDINGS: No significant plaque is identified. There is a mass in the right neck measuring 2.4 x 1.9 x 2.2 cm with a central hypoechoic region which may represent a necrotic lymph node. VERTEBRAL FLOW DIRECTION: Antegrade bilaterally. PEAK SYSTOLIC VELOCITIES (in cm/sec): RIGHT: CCA: Prox: 75 Dist: 88 ICA: Prox: 77 Mid: 42 Dist: 92 ICA/CCA Ratio: 1.05 ECA: 263 Peak ICA EDV: 16 LEFT: CCA: Prox: 77 Dist: 61 ICA: Prox: 71 Mid: 52 Dist: 83 ICA/CCA Ratio: 1.08 ECA: 125 Peak ICA EDV: 18 US/US carotid duplex BI IMPRESSION: 1. Normal carotid ultrasound. 2. 2.4 x 1.9 x 2.2 cm mass in the right neck suspicious for a necrotic lymph node. If further imaging is desired, CT of the neck with contrast is suggested. Electronically signed by: Db Berry MD 05/31/2024 08:12 AM [facility]
--- NOTE | ~2024-05-27 | XR_ITS ---
CLINICAL HISTORY: weakness 1 view chest x-ray Comparison: None Findings: Right mid lung patchy consolidations. Small patchy consolidation of the left lower lobe. Diffuse interstitial prominence in both lungs. Small right pleural effusion. Heart size is normal. No acute fracture. IMPRESSION: 1. Right mid lung and left lower lobe patchy consolidation may represent multifocal pneumonia. 2. Diffuse interstitial prominence and small right pleural effusion may represent pulmonary edema /fluid overload. This document has been electronically signed by: Paul Restrepo MD on 05/27/2024 19:51:57
--- NOTE | ~2024-05-27 | CT_ITS ---
CLINICAL HISTORY: left sided weakness CT head without contrast Comparison: CT/REG/SR - CT HEAD/BRAIN WO CON - 11/29/21 09:45 EDT Findings: No intra-axial mass, midline shift, hydrocephalus, or acute hemorrhage. Moderate atrophy-like change or white matter disease. Moderate mucosal thickening and opacification of the bilateral anterior ethmoid air cells, right frontal sinus, bilateral maxillary as well as sphenoid sinus. Air-fluid levels are noted within the maxillary sinus. Bilateral mastoid air cells are clear. The orbits are unremarkable. No skull fracture. IMPRESSION: 1. No acute intracranial findings. 2. Acute sinusitis. This document has been electronically signed by: Paul Restrepo MD on 05/27/2024 21:42:39
--- NOTE | ~2024-05-27 | XR_ITS ---
CLINICAL HISTORY: pneumonia 1 view chest x-ray Comparison: 05/27/2024 Findings: Portions of the exam are obscured by overlying material. The overall appearance of the chest including the possible right middle and lower lobe atelectasis, are unchanged. IMPRESSION: 1. No significant change from prior study. This document has been electronically signed by: Yoni Hobbs MD on 06/04/2024 05:19:14
--- NOTE | ~2024-05-27 | CT_ITS ---
CLINICAL HISTORY: LUE weakness CT head without contrast. Comparison: CT/SR - CT HEAD/BRAIN WO IV CON - 05/27/24 20:[address]/REG/SR - CT HEAD/BRAIN WO CON - 11/29/21 09:[address]/SR - BRAIN WO IV CONTRAST [id number] - 09/16/18 13:47 EDT Findings: Findings concerning for recent ischemia in the right thalamus and thalamus capsular junction. Additional nonspecific low-attenuation changes possibly gliosis in the posterior left parietal lobe. Overlying cortical mantle appears intact. Still changes new from 2021 CT, further correlation with head MRI suggested. No acute hemorrhage, mass effect or extra-axial collection. Basal cisterns are patent. Involutional changes prominent for age. Posterior fossa structures intact. Dense calcification of the carotid siphons and distal vertebral arteries. Skull intact. Extensive mucoperiosteal thickening of the paranasal sinuses. Mastoids clear. Physiologic calcification of the interhemispheric falx. Globes and orbits intact status post cataract surgery. Impression: Subtle low-attenuation changes in the right thalamus and thalamus capsular junction concerning for possible acute ischemia. Nonspecific subcortical edema or gliosis in the posterior left parietal lobe. Further correlation of the above findings with MRI suggested. No acute hemorrhage, mass effect or extra-axial collection. This document has been electronically signed by: Yoni Beaver MD on 05/30/2024 11:28:55
--- NOTE | ~2024-05-27 | CT_ITS ---
EXAMINATION: CT CHEST WITH CONTRAST CLINICAL INFORMATION: Suspected lung malignancy. Possible brain metastases on MRI. COMPARISON: 04/07/2024 CT chest. Chest x-ray 05/27/2024. TECHNIQUE: Multidetector volumetric CT imaging of the chest was obtained after the administration of 50 mL of Omnipaque 350 intravenous contrast without immediate adverse reactions. Axial MIP volume rendering provided. Sagittal and coronal reformatted images were obtained. This CT examination was performed using dose optimization techniques as appropriate, variously including the following: *Automated exposure control *Adjustment of mA and/or kV according to patient size (this includes techniques or standardized protocols for targeted exams where dose is matched to indication/reason for exam; i.e. extremities or head) *Use of iterative reconstruction technique FINDINGS: LUNGS: There are several bilateral spiculated nodular opacities, most confluent in the lateral right middle lobe, where lobulated suspected soft tissue mass is present measuring 4.4 x 2.5 x 2.2 cm (AP, TRV, CC). (Series 6, image 289). There are additional small spiculated irregular nodular opacities in the superior segment right lower lobe, posterior segment right upper lobe, with smaller in the left lower lobe (numerous) and posterior left upper lobe. There is smooth interlobular septal thickening seen throughout the right lung with sparing of the right upper lobe, and lesser degree seen in the lingular segment left lower lobe, suggestive of interstitial edema. There are associated mild patchy groundglass changes of the parenchyma, possibly alveolar edema. PLEURA: There is a pleural-based low attenuating peripherally enhancing lesion abutting the anterior right atrium, measuring approximately 3.3 x 1.8 x 3.2 cm. (Series 4, image 36). There is a second pleural-based low attenuating peripherally enhancing lesion abutting the anterior lateral right upper lobe, measuring 2.8 x 1.3 cm in axial plane (series 4, image 27). Small layering right effusion, with loculated component with split pleura sign, and small amounts of internal gas, suggestive of pulmonary abscess. Necrotic metastasis is also a possibility. This abnormality measures approximately 5.3 cm in AP, by 8.1 cm transverse, by 9.4 cm in craniocaudad dimension (series 4, image 52; series 8, image 79). Tiny layering left effusion. Fluid tracking into the right major and minor fissures. Pleural thickening is present in the inferior right hilum abutting the left atrial appendage. MEDIASTINUM: Chest port present on the right, terminating in the right atrium. Normal thyroid. There are low attenuating right hilar lymph nodes, measuring up to 1.2 cm short axis, suspicious findings. There are borderline-enlarged subcarinal and paratracheal lymph nodes on the right. Aorta is normal in caliber and course. Mild atheromatous calcification. Main pulmonary artery is prominent, likely reflecting increased pulmonary pressures, There is mild cardiac enlargement. There is predominantly left atrial dilatation. There is calcification of the mitral annulus. There are heavy coronary calcifications. Enlarged IVC suggesting increased right heart pressures. AXILLA/CHEST WALL: Anasarca, right chest port. No axillary lymphadenopathy. UPPER ABDOMEN: Renal atrophy. Small hiatus hernia. No discrete liver lesion, although are partially imaged. OSSEOUS STRUCTURES: Mild sclerosis of the right anterior third rib, abutting a pleural lesion. Chest wall involvement is not excluded. No additional suspicious osseous findings. CT/CT chest w IV con IMPRESSION: 1. Spiculated soft tissue masses in both lungs, largest in the right middle lobe laterally and posterior right upper lobe. Necrotic appearing pleural based lesions right hemithorax. Right hilar low attenuating lymph nodes and borderline enlarged mediastinal nodes. Findings are consistent with advanced malignancy. 2. Suspect right basilar loculated pleural abscess as described, measuring up to 9 cm approximately. 3. Smooth interlobular septal thickening right greater than left lungs, with small layering pleural effusions, findings consistent with superimposed pulmonary edema. 4. Mild cardiomegaly with predominantly left atrial enlargement. Findings suggesting elevated pulmonary and right heart pressures. 5. Anasarca. 6. Refer to the above for detailed. Findings communicated to Dr. Orozco via secure text at 9:34 AM, 05/31/2024. Electronically signed by: Timmy Fajardo MD 05/31/2024 09:35 AM [facility] [place]
--- NOTE | ~2024-05-27 | MR_ITS ---
CLINICAL HISTORY: CVA - give ray per Dr. Lund MR Brain with and without gadolinium Comparison: CT/SR - CT HEAD FOR STROKE - 05/30/24 10:59 EST Findings: There are 3 peripherally enhancing nodules within the brain, a 1.4 cm nodule within the right hermes thalamus, a 1.1 cm nodule within the left parietal lobe and a 9 mm nodule at the right temporo-occipital junction. Severe associated vasogenic edema. Restricted diffusion also present at each of these locations. No midline shift. No intracranial hemorrhage. Involutional change brain parenchyma, compatible with age. No intracranial mass or hemorrhage. No midline shift. No hydrocephalus. Vascular flow voids are intact. Orbital contents are unremarkable. Severe mucosal thickening within the paranasal sinuses. No focal bone lesion. IMPRESSION: There are peripherally enhancing nodules within the right thalamus, left parietal lobe and at the right temporo-occipital junction. This may be secondary to metastatic disease or an inflammatory/ infectious process. This document has been electronically signed by: Codie Suggs MD on 05/30/2024 14:27:51
--- NOTE | 2024-05-27 17:59 | PC.NURSE ---
Pt comes to ED today via EMS from home for c/o generalized weakness increasing over the last few weeks. 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 Pt receives dialysis on MWF however did not attend her last two treatments d/t feeling unwell. VSS, afebrile. Pt is A&Ox3 Awaiting ED provider.
--- NOTE | 2024-05-27 18:02 | ECG_ITS ---
Test Reason : DIZZINESS Blood Pressure : */* mmHG Vent. Rate : 65 BPM Atrial Rate : 65 BPM P-R Int : 178 ms QRS Dur : 76 ms QT Int : 384 ms P-R-T Axes : 54 -41 62 degrees QTcB Int : 399 ms Normal sinus rhythm Left axis deviation Septal infarct , age undetermined Abnormal ECG When compared with ECG of 16-Sep-2018 12:51, QRS axis Shifted left Septal infarct is now Present Nonspecific T wave abnormality no longer evident in Inferior leads QT has shortened Referred By: Jerod Simons Electronically Signed By: Bishnu Carney
--- NOTE | 2024-05-27 18:38 | ED.GENADULT ---
HPI - General Adult General Chief complaint: Weakness Stated complaint: weakness, ftt, missed dialysis, N/V,dizzy Time Seen by Provider: 05/27/24 17:53 Source: patient, RN notes reviewed and old records reviewed Mode of arrival: EMS Limitations: other (The patient is a very poor historian) History of Present Illness ED Provider: Kristyn HPI narrative: 64-year-old female with a past medical history significant for diabetes, end-stage renal disease on dialysis, esophagitis, hypertension, anemia, mood disorder, hyperlipidemia, heart failure with poor ejection fraction presents for evaluation of weakness. It is very difficult to get a history out of the patient. She was here with her son who is bedside. The triage note states the patient has had increasing weakness for last few weeks and the patient was seen at the end of April for pneumonia The patient states that her weakness started this morning, however she also reports that she missed dialysis yesterday because ?I was too sick to go. ? She reports a headache which is new for her, shortness of breath and generalized weakness She reports mild abdominal pain. She also is still able to urinate The triage note reports the patient miss dialysis Friday and Friday, however after talking to the patient and her son it sounds as if she only missed yesterday on Friday but did go on Friday. Related Data Home Medications ?Medication ?Instructions ?Recorded ?Confirmed epoetin natali 40,000 unit/mL 40,000 unit IV MO 12/31/23 04/07/24 injection solution (Procrit) acetaminophen 325 mg tablet 650 mg PO Q4H PRN Mild Pain (Scale 04/07/24 04/07/24 Score 1-4) acetaminophen 325 mg tablet 650 mg PO Q6H PRN Fever 04/07/24 04/07/24 bisacodyl 10 mg rectal suppository 10 mg RI DAILY PRN no result from 04/07/24 04/07/24 (Dulcolax (bisacodyl)) MOM by next shift carvedilol 25 mg tablet 25 mg PO BID 04/07/24 04/07/24 dextrose 40 % oral gel 20 g PO Q15M PRN BG less than 70 04/07/24 04/07/24 diphenhydramine HCl 25 mg tablet 25 mg PO BID PRN itchiness 04/07/24 04/07/24 docusate sodium 100 mg capsule 100 mg PO DAILY PRN Constipation 04/07/24 04/07/24 glucagon 1 mg injection kit 1 mg IM DAILY PRN BG less than 70 04/07/24 04/07/24 hydromorphone 4 mg tablet 4 mg PO Q4H PRN moderate to severe 04/07/24 04/07/24 pain insulin lispro 200 unit/mL (3 mL) 1 sliding scale dose subcut 04/07/24 04/07/24 subcutaneous pen USEASDIRECTD isosorbide mononitrate 30 mg 30 mg PO DAILY 04/07/24 04/07/24 tablet,extended release 24 hr magnesium hydroxide 400 mg/5 mL 30 ml PO DAILY PRN no BM in 3 days 04/07/24 04/07/24 oral suspension (Milk of Magnesia) ondansetron HCl 4 mg tablet 4 mg PO Q8H PRN Nausea And Vomiting 04/07/24 04/07/24 pantoprazole 40 mg tablet,delayed 40 mg PO DAILY@0630 04/07/24 04/07/24 release prednisone 2.5 mg tablet 7.5 mg PO DAILY 04/07/24 04/07/24 sertraline 25 mg tablet 25 mg PO DAILY 04/07/24 04/07/24 sodium bicarbonate 650 mg tablet 1,300 mg PO BID 04/07/24 04/07/24 sodium phosphates 19 gram-7 118 ml RI DAILY PRN if no result 04/07/24 04/07/24 gram/118 mL enema (Fleet Enema) from dulcolax within 2 hours sucralfate 1 gram tablet 1 g PO QIDACHS 04/07/24 04/07/24 tacrolimus 5 mg capsule,extended 10 mg PO DAILY 04/07/24 04/07/24 release 24 hr vitamin B complex-vitamin C-folic 1 tab PO DAILY 04/07/24 04/07/24 acid 0.8 mg tablet (Nephro Vitamins) Previous Rx's ?Medication ?Instructions ?Recorded amlodipine 10 mg tablet 10 mg PO DAILY #30 tabs 08/08/22 amoxicillin 500 mg-potassium 1 tab PO Q12H #14 tabs 04/13/24 clavulanate 125 mg tablet mycophenolate sodium 360 mg 180 mg (1/2 x 360 mg) PO BID #0 04/13/24 tablet,delayed release tabs Allergies Allergy/AdvReac Type Severity Reaction Status Date / Time codeine [CODEINE] Allergy Intermediate Hives and Verified 05/27/24 17:47 pruritus oxycodone [OXYCODONE] Allergy Intermediate HIVES Verified 05/27/24 17:47 Review of Systems Constitutional: Constitutional: Denies body ache(s), Denies chills, Denies fever(s), Reports headache(s), Reports lethargy, Reports malaise and Reports weakness ENT: Reports headache(s) Cardiovascular: Cardiovascular: Denies chest pain and Reports dyspnea Respiratory: Respiratory: Denies cough and Reports dyspnea Gastrointestinal: Gastrointestinal: Reports abdominal pain, Denies nausea and Denies vomiting Musculoskeletal: Musculoskeletal: Denies back pain Integumentary/Breasts: Skin/Breast: Denies rash Neurologic: Reports headache(s) and Reports weakness PMFSH Past Medical History Medical History HTN (hypertension) Mood disorder 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 Mother CHF (congestive heart failure) Social History Social History Household Members: Family Housing: House Do you presently have visiting nurse or other home services: No Alcohol intake: never Comment: patient is bedbound at this time Patient Tobacco Use Status: Never used Tobacco Smoked in Last 30 Days: No Use of substances other than those prescribed or required for medical reasons: No Advance Directives: No Advance Directives Information Provided: No Patient : No service: No Physical Exam ED Vital Signs: Vital Signs - 24 hr 05/27/24 17:39 05/27/24 17:45 05/27/24 21:17 Temperature 98.8 F 98.8 F Pulse Rate 66 66 79 Respiratory Rate 18 18 16 Blood Pressure 142/62 H 142/62 H Pulse Oximetry 99 99 Oxygen Delivery Method Room Air Room Air 05/27/24 21:26 05/27/24 22:16 Temperature 99.9 F 101.1 F H Pulse Rate 69 70 Respiratory Rate 17 16 Blood Pressure 142/56 H 126/63 Pulse Oximetry 93 94 Oxygen Delivery Method Room Air Room Air BMI result Body Mass Index 17.1 Const General: comfortable, no acute distress, alert and awake Nutritional Appearance: well nourished Orientation/consciousness: patient oriented x3 HENMT Head: Yes normocephalic and Yes atraumatic Resp Effort & Inspection: normal respiratory effort, able to speak in complete sentences, no audible wheezes and not labored Auscultation: clear to auscultation bilaterally Cardio Rate: regular rate Rhythm: regular rhythm GI Inspection: No distended Palpation (GI): Soft to palpation, not firm, nontender, no guarding and not rigid Skin General skin exam: elasticity normal Neuro General: patient oriented x3 Cranial nerves: Yes Bilaterally intact EOM present Cognition (Neuro): normal cognition Extrem Other: Moving all extremities well without any obvious deformities Course Reevaluation(s) Reevaluation #1: Received call from the lab, the patient's potassium is 6.9. She did skip dialysis yesterday. I ordered 5 units IV insulin with glucose prevent hypoglycemia, albuterol 10 mg updraft, bicarb, calcium gluconate, and Lokelma Time: 20:54 Reevaluation #2: Patient's chest x-ray also shows multifocal pneumonia. I ordered azithromycin, ceftriaxone as well as blood cultures. The patient has a port in the right chest wall. This is last access 2 weeks ago at [facility] per family. The patient's port was accessed. Time: 21:37 Reevaluation #3: The patient has spiked a fever with a rectal temperature 101.1?, I ordered IV Tylenol. She had received 500 cc of IV fluids. We will not administer 30 cc/kilos she does not meet criteria for severe sepsis in his also at high risk for fluid overload Time: 22:19 Medications Administered Generic Name Dose Route Start Last Admin Trade Name Freq PRN Reason Stop Dose Admin Calcium Gluconate 2 gm in 100 mls @ 50 mls/hr 05/27/24 20:49 05/27/24 22:00 Calcium Gluconate IV 05/27/24 22:48 50 mls/hr ONCE ONE Administration Azithromycin 500 mg/ Sodium 250 mls @ 125 mls/hr 05/27/24 21:27 05/27/24 22:15 Chloride IV 05/27/24 23:26 125 mls/hr ONCE ONE Administration Sodium Chloride 500 mls @ 500 mls/hr 05/27/24 21:30 05/27/24 22:00 Ns IV 05/27/24 22:29 500 mls/hr .Q1H LIVIER Administration Discontinued Medications Generic Name Dose Route Start Last Admin Trade Name Freq PRN Reason Stop Dose Admin Albuterol Sulfate 7.5 mg/ 10 mg 05/27/24 20:49 05/27/24 21:16 Albuterol Sulfate 2.5 mg INHALE 05/27/24 20:50 10 mg ONCE ONE Administration Ceftriaxone Sodium 1 gm 05/27/24 21:27 05/27/24 22:00 Ceftriaxone Sodium 1 Gm Vial IVPUSH 05/27/24 21:28 1 gm ONCE ONE Administration Dextrose 25 gm 05/27/24 20:49 05/27/24 21:57 Dextrose 50 % 25 Gm/50 Ml Syringe IVPUSH 05/27/24 20:50 25 gm ONCE ONE Administration Insulin Human Regular 5 unit 05/27/24 20:49 05/27/24 21:55 Insulin Regular, Human 100 Unit/Ml 10 Ml Vial IVPUSH 05/27/24 20:50 5 unit ONCE ONE Administration Sodium Bicarbonate 50 meq 05/27/24 20:49 05/27/24 22:00 Sodium Bicarbonate 8.4% 50 Meq/50 Ml Syringe IVPUSH 05/27/24 20:50 50 meq ONCE ONE Administration Sodium Zirconium Cyclosilicate 10 gm 05/27/24 20:49 05/27/24 22:19 Sodium Zirconium Cyclosilicate 10 Gm Powd.Pack PO 05/27/24 20:50 10 gm ONCE ONE Administration Medical Decision Making Medical Decision Making MDM Narrative: 64-year-old female presents for evaluation of primarily headache and generalized weakness. However she was a very poor historian. It sounds as if she missed dialysis yesterday but did go on Friday. She was mildly hypertensive on arrival but is afebrile, not hypoxic. Plan for basic labs, we will get an EKG for generalized weakness and the patient missed her dialysis yesterday, she could have hyperkalemia. We will get a chest x-ray, viral swab, urinalysis. Further workup as indicated. She does not appear to have any focal neurologic deficits. However given her headache which is new for her we will get a CT scan of her brain. Differential Diagnosis Differential Diagnoses: The differential diagnosis associated with the presentation includes Generalized weakness Viral syndrome Influenza Chronic kidney disease Hyperuremia CVA less likely Acute headache Lab Data 05/27/24 20:14 05/27/24 20:14 Labs: Lab Results 05/27/24 05/27/24 Range/Units 20:14 21:44 WBC 19.4 H (4.8-10.8) X10*3/uL RBC 3.08 L (4.20-5.50) X10*6/uL Hgb 8.4 L (12.0-16.0) g/dl Hct 28.2 L (37.0-47.0) % MCV 91.6 (80.0-98.0) fL MCH 27.3 (27.0-33.0) pg MCHC 29.8 L (31.0-35.0) g/dl RDW 17.8 H (11.0-16.0) % Plt Count 321 (160-400) X10*3/uL MPV 10.0 (9.4-12.3) fL Immature Gran % (Auto) 1.5 H (0.0-0.4) % Neut % (Auto) 84.5 H (45-73) % Lymph % (Auto) 5.3 L (20-40) % [place] % (Auto) 8.2 (2-11) % Eos % (Auto) 0.2 (0-4) % Baso % (Auto) 0.3 (0-2) % Lymph # (Auto) 1.0 L (1.2-4.9) X10*3/uL [place] # (Auto) 1.6 H (0.1-1.2) X10*3/uL Eos # (Auto) 0.0 (0.0-0.4) X10*3/uL Baso # (Auto) 0.1 (0.0-0.2) X10*3/uL Abs Immat Gran (auto) 0.30 H (0.00-0.03) X10*3/uL Absolute Neuts (auto) 16.4 H (2.0-8.3) x10*3/uL Absolute Nucleated RBC 0.000 (0.0-0.012) X10*3/uL Nucleated RBC % (auto) 0.0 (0.0-0.2) /100WBC Smear Tech's Comments VERIFIED PT 12.6 H (10.9-12.4) SEC INR 1.1 (0.9-1.1) Sodium 134 L (135-145) mmol/L Potassium 6.9 H* D (3.3-5.1) mmol/L Chloride 103 (96-108) mmol/L Carbon Dioxide 24 (22-29) mmol/L Anion Gap 14 (12-20) BUN 53 H (9-16) mg/dL Creatinine 3.00 H (0.5-1.4) mg/dL Estim Creat Clear Calc 14.3 Estimated GFR 16 Random Glucose 88 (60-115) mg/dL Lactic Acid 0.5 (0.5-2.0) mmol/L Calcium 9.6 D (8.4-10.2) mg/dL Total Bilirubin 0.4 (0.0-1.0) mg/dL AST 19 (5-31) U/L ALT < 6 (0-31) U/L Alkaline Phosphatase 69 (39-117) U/L Total Protein 0.4 L (6.5-8.0) g/dL Albumin 2.7 L (3.5-5.0) g/dL Lipase 9 (8-78) U/L Discharge Plan Discharge Clinical Impression: Weakness, Acute hyperglycemia Patient Disposition: Still a Patient Prescriptions: No Action carvedilol 25 mg Tablet 25 mg PO BID Rx Instructions: must administer with a meal/food acetaminophen 325 mg Tablet 650 mg PO Q6H PRN (Reason: Fever) acetaminophen 325 mg Tablet 650 mg PO Q4H PRN (Reason: Mild Pain (Scale Score 1-4)) sucralfate 1 gram Tablet 1 g PO QIDACHS ondansetron HCl 4 mg Tablet 4 mg PO Q8H PRN (Reason: Nausea And Vomiting) isosorbide mononitrate 30 mg Tablet Extended Release 24 Hr 30 mg PO DAILY magnesium hydroxide [Milk of Magnesia] 400 mg/5 mL Suspension 30 ml PO DAILY PRN (Reason: no BM in 3 days) sodium bicarbonate 650 mg Tablet 1,300 mg PO BID bisacodyl [Dulcolax (bisacodyl)] 10 mg Suppository 10 mg RI DAILY PRN (Reason: no result from MOM by next shift) prednisone 2.5 mg Tablet 7.5 mg PO DAILY pantoprazole 40 mg Tablet,Delayed Release (Dr/Ec) 40 mg PO DAILY@0630 diphenhydramine HCl 25 mg Tablet 25 mg PO BID PRN (Reason: itchiness) Fleet Enema 19-7 gram/118 mL Enema 118 ml RI DAILY PRN (Reason: if no result from dulcolax within 2 hours) docusate sodium 100 mg Capsule 100 mg PO DAILY PRN (Reason: Constipation) sertraline 25 mg Tablet 25 mg PO DAILY Nephro Vitamins 0.8 mg Tablet 1 tab PO DAILY hydromorphone 4 mg Tablet 4 mg PO Q4H PRN (Reason: moderate to severe pain) tacrolimus 5 mg Capsule,Extended Release 24hr 10 mg PO DAILY Rx Instructions: must administer in the morning on an empty stomach, 1 hour before or 2 hours after a meal insulin lispro 200 unit/mL (3 mL) Insulin Pen 1 sliding scale dose SUBCUT USEASDIRECTD Rx Instructions: if 150-199 = 2 units, 200-249 = 4 units, 250-299 = 6 units, 300-349 = 8 units, 350-399 = 10 units, 400+ call glucagon 1 mg Kit 1 mg IM DAILY PRN (Reason: BG less than 70) dextrose 40 % Gel 20 g PO Q15M PRN (Reason: BG less than 70) Rx Instructions: until symptoms of low blood sugar are controlled mycophenolate sodium 360 mg Tablet,Delayed Release (Dr/Ec) 180 mg PO BID Qty: 0 0RF amoxicillin-pot clavulanate 500-125 mg tablet 1 tab PO Q12H Qty: 14 0RF amlodipine 10 mg tablet 10 mg PO DAILY Qty: 30 0RF Procrit 40,000 unit/mL solution 40,000 unit IV MO Rx Instructions: HOLD FOR HGB OVER 10 Print Language: Spanish
--- OUTSIDE RECORDS SUMMARY | 2024-05-27 20:21 | XMS_ITS | Encounter Summary ---
Author Organization [facility] Address [address] [place] [address] Care Team Providers Care Resource Manager Forester Name Role Phone Marita Wetzel DO Primary Care Provider [phone]- [phone] Encounter Details Date Type Department Care Team (Late st Contact Info) Description 04/29/2024 Lab Requisition [facility] - Main Lab [address] [facility] [phone] Marily Gordillo MD [address] [place] [phone] Chronic embolism and thrombosis of unspecified vein; Acute kidney failure, unspecified (CMS/HCC) Social History Tobacco Use Types Packs/Day Years Used Date Smoking Tobacco: Never Assessed Sex and Gender Information Value Date Recorded Sex Assigned at Not on file Gender Identity Not on file Sexual Orientation Not on file documented as of this encounter Plan of Treatment Not on file documented as of this encounter Visit Diagnoses Diagnosis Chronic embolism and thrombosis of unspecified vein Acute kidney failure, unspecified (CMS/HCC) Acute kidney failure, unspecified documented in this encounter Care Teams Resource Manager Forester Relationship Specialty Start Date End Date Marita Wetzel DO [address] [place] [address] PCP - General 01/09/23 documented as of this encounter
--- OUTSIDE RECORDS SUMMARY | 2024-05-27 20:21 | XMS_ITS | Encounter Summary ---
Author Organization [facility] Address [address] [place] [address] Care Team Providers Care Baseboard Heating Installer Name Role Phone Marita Wetzel DO Primary Care Provider [phone]- [phone] Encounter Details Date Type Department Care Team (Late st Contact Info) Description 05/12/2024 Lab Requisition [facility] - Main Lab [address] [facility] [place] [phone] Marily Gordillo MD [address] [place] [address] Chronic kidney disease, unspecified; Anemia, unspecified Social History Tobacco Use Types Packs/Day Years Used Date Smoking Tobacco: Never Assessed Sex and Gender Information Value Date Recorded Sex Assigned at Not on file Gender Identity Not on file Sexual Orientation Not on file documented as of this encounter Plan of Treatment Not on file documented as of this encounter Visit Diagnoses Diagnosis Chronic kidney disease, unspecified Anemia, unspecified documented in this encounter Care Teams Baseboard Heating Installer Relationship Specialty Start Date End Date Marita Wetzel DO [address] [place] [address] PCP - General 01/09/23 documented as of this encounter
--- OUTSIDE RECORDS SUMMARY | 2024-05-27 20:21 | XMS_ITS | Encounter Summary ---
Author Organization [facility] Address [address] [place] [address] Care Team Providers Care Rotary Driller Helper Name Role Phone Marita Wetzel Primary Care Provider [phone]- [phone] Encounter Details Date Type Department Care Team (Late st Contact Info) Description 04/30/2024 Lab Requisition [facility] - Main Lab [address] [place] [phone] Marily Gordillo MD [address] [place] [phone] Chronic embolism and thrombosis of unspecified vein; [...] on file documented as of this encounter Procedures Procedure Name Priority Date/Time Associated Diagnosis Comments TACROLIMUS LEVEL Routine 05/03/2024 6:09 AM EST Chronic embolism and thrombosis of unspecified vein Acute kidney failure, unspecified (CMS/HCC) RENAL FUNCTION PANEL Routine 05/03/2024 6:09 AM EST Chronic embolism and thrombosis of unspecified vein Acute kidney failure, unspecified (CMS/HCC) documented in this encounter Results * (ABNORMAL) Renal function panel (05/03/2024 6:09 AM EST) Sodium 134 133 - 145 mmol/L LAB CHEMISTRY METHOD 05/03/2024 10:39 AM EST [facility] Potassium 5.1 3.5 - 5.5 mmol/L LAB CHEMISTRY METHOD 05/03/2024 10:39 AM [facility] Chloride 99 96 - 110 mmol/L LAB CHEMISTRY METHOD 05/03/2024 10:39 AM [facility] CO2 28 21 - 32 mmol/L LAB CHEMISTRY METHOD 05/03/2024 10:39 AM [facility] Anion Gap 7 3 - 11 LAB CHEMISTRY METHOD 05/03/2024 10:39 AM [facility] Glucose 133(H) 70 - 100 mg/dL LAB CHEMISTRY METHOD 05/03/2024 10:39 AM [facility] BUN 40(H) 5 - 25 mg/dL LAB CHEMISTRY METHOD 05/03/2024 10:39 AM [facility] Creatinine 3.27(H) 0.50 - 1.10 mg/dL LAB CHEMISTRY METHOD 05/03/2024 10:39 AM [facility] eGFR 15(L) >=60 mL/min/1. 73m2 LAB CHEMISTRY METHOD 05/03/2024 10:39 AM [facility] Comment:Calculation based on the??Chronic Kidney Disease Epidemiology Collaboration (CKD-EPI) equation refit??without adjustment for race. BUN/Creatinine Ratio 12.2 LAB CHEMISTRY METHOD 05/03/2024 10:39 AM [facility] Albumin 2.1(L) 3.2 - 5.0 g/dL LAB CHEMISTRY METHOD 05/03/2024 10:39 AM [facility] Calcium 8.6 8.5 - 10.5 mg/dL LAB CHEMISTRY METHOD 05/03/2024 10:39 AM [facility] Phosphorus 1.8(L) 2.5 - 4.5 mg/dL LAB CHEMISTRY METHOD 05/03/2024 10:39 AM [facility] Blood Venous blood specimen / Unknown Venipuncture / Unknown 05/03/2024 6:09 AM EST 05/03/2024 9:28 AM EST Marily Gordillo MD LAB BLOOD ORDERABLES [facility] ([facility]) [facility] [address] [place] [address], * Tacrolimus level (05/03/2024 6:09 AM EST) Tacrolimus Level 6.5 5.0 - 20.0 ng/mL 05/06/2024 3:12 PM EST [facility] Comment: Additional Information: Toxic Level ?> 26 ng/mL Organ ?Post Transp. (months) ?Trough Level (ng/mL) Kidney ? Up to 3 ?7.0 - 20.0 ? >3 ? 5.0 - 15.0 Heart ?Up to 3 ?10.0 - 20.0 ? >3 ? 5.0 - 15.0 Liver ?Up to 12 ? 5.0 - 20.0 Tacrolimus determined by a LC-MS/MS procedure. If applicable, any drug confirmation testing reported here was developed and the performance characteristics determined by [facility]. This confirmation testing has not been cleared or approved by the FDA. The laboratory is regulated under CLIA as qualified to perform high-complexity testing. This test is used for patient testing purposes. It should not be regarded as investigational or for research. Test performed at [facility], [address] , [place], [place] ??[address] ? [phone] Ashtyn Leigh MD, PhD - Cad Technician Blood Venous blood specimen / Unknown Venipuncture / Unknown 05/03/2024 6:09 AM EST 05/03/2024 9:28 AM EST Marily Gordillo MD LAB BLOOD ORDERABLES Performing Organization Address City/State/[facility] Co de Phone Number [facility] [address] [place] [address] documented in this encounter Visit Diagnoses Diagnosis Chronic embolism and thrombosis of unspecified vein Acute kidney failure, unspecified (CMS/HCC) Acute kidney failure, unspecified documented in this encounter Care Teams Rotary Driller Helper Relationship Specialty Start Date End Date Marita Wetzel DO [address] [place] [address] PCP - General 01/09/23 documented as of this encounter
--- OUTSIDE RECORDS SUMMARY | 2024-05-27 20:21 | XMS_ITS | Encounter Summary ---
Author Organization [facility] Address [address] [place] [address] Phone Care Team Providers Care Photographic Machine Operator Name Role Phone Marita Wetzel DO Primary Care Provider Unava ilable Encounter Details Date Type Department Care Team (Late st Contact Info) Description 07/29/2023 Documentation Only [facility] [address] [place] [address] Pauline Aguayo [address] [place] [address] Social History Tobacco Use Types Packs/Day Years Used Date Smoking Tobacco: Never Alcohol Use Standard Drinks/Week Comments No 0 (1 standard drink = 0.6 oz pur e alcohol) Comments Unknown Sex and Gender Information Value Date Recorded Sex Assigned at Not on file Legal Sex Female 9:20 AM EDT Gender Identity Not on file Sexual Orientation Not on file documented as of this encounter Plan of Treatment Upcoming Encounters Date Type Department Care Team (Late st Contact Info) Description 06/10/2024 11:45 PM EST Clinical Support [facility] [address] [place] [address] 06/29/2024 7:30 AM EDT Scheduled Only [facility] [address] [place] [place] [phone] documented as of this encounter Visit Diagnoses Not on filedocumented in this encounter Care Teams Photographic Machine Operator Relationship Specialty Start Date End Date Marita Wetzel DO [address] [place] [address] PCP - General Family Medicine 11/14/22 documented as of this encounter
--- OUTSIDE RECORDS SUMMARY | 2024-05-27 20:21 | XMS_ITS | Clinical Summary ---
Author Organization [facility], Address [address] [place] [address] [place] [address] Phone Care Team Providers Care Cleaner And Presser Name Role Phone Marita Wetzel DO Primary Care Provider Unava ilable Allergies Active Allergy Reactions Criticality Noted Date Comments Acetaminophen Nausea Low 10/05/2012 Other reaction(s): Nausea / Vomiting-Pt. Denies allergy and take takes tylenol prn. Codeine Hives High 05/14/2013 faint Oxycodone-Acetaminophen Hives High 05/14/2013 faint Medications carvedilol (Coreg) 25 MG tablet Take 1 tablet (25 mg total) by mouth in the morning and 1 tablet (25 mg total) in the evening. Take with meals. 60 tablet 11 04/10/20 23 Active Insulin Lispro, 1 Unit Dial, 100 UNIT/ML solution pen-injector Inject subcutaneously every 6 hours per sliding scale: blood sugar 150-199=2 units, 200-249=4 units, 250-299=6 units, 300-349=8 units, 350-399=10 units. 04/11/20 23 Active thiamine (VITAMIN B-1) 100 MG tablet Take 1 tablet (100 mg total) by mouth 1 (one) time each day 30 tablet 05/28/19 24 025 Active Lantus SoloStar 100 UNIT/ML injection Inject 6 Units under the skin every night 06/09/19 24 Active Tacrolimus ER (Envarsus XR) 1 MG tablet sustained-relea se 24 hour Take 8 mg by mouth 1 (one) time each day 240 tablet 11 08/01/19 24 Active pantoprazole (Protonix) 40 MG EC tablet Take 1 tablet (40 mg total) by mouth 1 (one) time each day before breakfast Do not crush, chew, or split. 30 tablet 11 10/03/19 24 Active Additional Information Patient not taking.Reported on 02/04/2024 sucralfate (Carafate) 1 g tablet Take 1 tablet (1 g total) by mouth in the morning and 1 tablet (1 g total) at noon and 1 tablet (1 g total) in the evening and 1 tablet (1 g total) before bedtime. 120 tablet 11 10/10/19 Active Additional Information Patient not taking.Reported on 02/04/2024 ondansetron (Zofran) 4 MG tablet Take 1 tablet (4 mg total) by mouth every 8 (eight) hours if needed for nausea or vomiting 30 tablet 3 10/21/19 24 Active B complex-vitamin C-folic acid (NEPHRO-SHAY) 0.8 MG tablet Take 1 tablet by mouth 11/23/19 Active sertraline (ZOLOFT) 25 MG tablet Take 25 mg by mouth every morning 12/01/19 Active amLODIPine (NORVASC) 10 MG tablet Take 1 tablet (10 mg total) by mouth 1 (one) time each day 30 tablet 12/31/19 24 Active mycophenolate (MYFORTIC) 360 MG EC tablet Take 1 tablet (360 mg total) by mouth in the morning and 1 tablet (360 mg total) in the evening. 120 tablet 3 02/02/20 24 Active epoetin natali (Procrit) 02979 UNIT/ML injectionIndica tions:Anemia due to Renal Failure Inject 1 mL (40,000 Units total) under the skin every 7 (seven) days 4 mL 02/02/20 Active Nutritional Supplements (Ensure) Take 1 Can by mouth in the morning and 1 Can in the evening. 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 Stage 5 chronic kidney disease 05/28/2023 Kidney transplant rejection 05/28/2023 Kidney transplant failure and rejection 05/26/19 History of infection caused by extended spectrum beta-lactamase producing bacteria 03/18/2023 Adult failure to thrive 01/24/2023 Chronic kidney disease, stage 4 (severe) 023 Aphthous ulcer of mouth 10/04/2022 Leukopenia 07/18/2022 Neutropenia 07/05/2022 Personal history of immunosuppression therapy History of renal transplant 03/17/2022 Overview (06/24/2022): campath induction Blindness of one eye with low vision other eye 0 12/28/2019 Congenital multiple renal cysts 12/28/2019 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 12/28/2019 Renal osteodystrophy 12/24/2019 Hyperlipidemia 12/24/2019 Secondary hyperparathyroidism of renal origin Iron deficiency anemia 10/01/2019 Anemia in chronic kidney disease 09/03/2019 Hypertension Hyperuricemia Vitamin D deficiency Essential hypertension Type 2 diabetes mellitus Overview (06/25/2022): diabetic retinopathy, neuropathy Resolved Problems Problem Noted Date Diagnosed Date Resolved Date Stage 3a chronic kidney disease 01/16/2023 05/28/2023 Biliary calculus 06/24/2022 06/24/2022 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 06/24/2022 Overview (01/20/2024): Replacing diagnoses that were inactivated after the 01/20/24 Regulatory Import Edema of lower extremity 09/2022 Stage 3b chronic kidney disease 05/28/2023 Encounters Date Type Department Care Team Description 05/25/2024 Telephone [facility] [address] [place] [address] Hazel Zepeda attempted to schedule port flush 05/24/2024 Orders Only [facility] [address] [place] [address] Srinivas Agrawal MD 05/24/2024 Treatment [facility] [address] [place] [phone] Bernardo Doty MD 05/10/2024 Orders Only [facility] [address] [address] Srinivas Agrawal MD 05/10/2024 Treatment [facility] [address] [place] [address] Bernardo Doty MD 2024 Orders Only [facility] [address] [address] Srinivas Agrawal MD 05/03/2024 Treatment [facility] [address] [place] [phone] Candace Adam PA 04/30/2024 Orders Only [facility] [address] [address] Srinivas Agrawal MD 04/28/2024 Orders Only [facility] [address] [address] Srinivas Agrawal MD 04/26/2024 Treatment [facility] [address] [place] [phone] Bernardo Doty MD 04/23/2024 Treatment [facility] [address] [place] [phone] Candace Adam PA 04/23/2024 Orders Only [facility] [address] [address] Srinivas Agrawal MD 04/20/2024 11:00 AM EST Office Visit [facility] [address] [place] [address] Srinivas Agrawal MD Kidney replaced by transplant (Primary Dx); History of immunosuppressive therapy; Personal history of immunosuppression therapy; Anemia in chronic kidney disease 04/17/2024 Documentation Only [facility] [address] [place] [address] Bebe Hendrix MA 04/13/2024 Documentation Only [facility] [address] [place] [address] Bebe Hendrix MA 04/06/2024 Documentation Only [facility] [address] [place] [address] Anum Tom, RN [facility] 03/22/2024 Telephone [facility] [address] [place] [address] Samina Loja, underlay stitcher- ER 03/16/2024 Documentation Only [facility] [address] [place] [address] Samina Loja, SONNY 03/11/2024 Documentation Only [facility] [address] [place] [address] Anum Tom, RN anemia update 03/02/2024 Documentation Only [facility] [address] [place] [address] Pauline Aguayo 02/26/2024 Telephone [facility] [address] [place] [address] Samina Loja, cardiac rehabilitation specialist orders 02/25/2024 Documentation Only [facility] [address] [place] [address] Anum Tom, RN retacrit/labs for rehab facitlity from Last 3 Months Immunizations Name Administration Dates Next Due HepB-CpG 10/02/2021, 2,07/04/2021,05/31 Hepatitis B 10/02/2021, 2,08/03/2021,07/04,05/31/2021,03/04/2017,05/09/2016 ,04/11/2016 Influenza Split 01/06/2013,02/04/2012 Influenza, Quadrivalent, Pre servative Free 02/26/2023,01/23/2022,02/14/2021,01/27,03/09/2019,01/30/2015 Influenza, Quadrivalent, Wit h Preservative 02/12/2018,03/04/2017,04/11/2016 Influenza, Unspecified 02/14/2021 Moderna SARS-COV-2 06/22/2020,05/25/2020 Moderna SARS-CoV-2 Bivalent 12+ 02/01/2022 Pneumococcal Conjugate 13-Valent 01/05/2020 Pneumococcal Polysaccharide 05/03/2021, 1 Td 01/18/2022 Td, Unspecified 01/18/2022 Tdap 01/23/2011 Varicella 09/19/2021,05/28/2021 Family History Medical History Relation Comments Heart disease Father Cancer Mother Diabetes Mother Hypertension Mother Relation Status Comments Father Mother Social History Tobacco Use Types Packs/Day Years Used Date Smoking Tobacco: Never Smokeless Tobacco: Never Alcohol Use Standard Drinks/Week Comments Never 0 (1 standard drink = 0.6 oz pur e alcohol) Comments Unknown Sex and Gender Information Value Date Recorded Sex Assigned at Not on file Legal Sex Female 9:20 AM EDT Gender Identity Not on file Sexual Orientation Not on file Last Filed Vital Signs Vital Sign Reading Time Taken Comments Blood Pressure 143/55 04/20/2024 12:51 PM EST Pulse 81 02/04/2024 9:55 AM EDT Temperature 36.3 ??C (97.4 ??F) 02/04/2024 9:55 AM ED T Respiratory Rate - - Oxygen Saturation 97% 02/04/2024 9:55 AM EDT Inhaled Oxygen Concentration - - Weight 56 kg (123 lb 6.4 oz) 02/04/2024 12:02 PM EDT Height 167.6 cm (5' 6 ) 02/04/2024 12:02 PM EDT Body Mass Index 19.92 02/04/2024 12:02 PM EDT Plan of Treatment Upcoming Encounters Date Type Department Care Team (Late st Contact Info) Description 06/10/2024 11:45 PM EST Clinical Support [facility] [address] [place] [place] [address] 06/29/2024 7:30 AM EDT Scheduled Only [facility] [address] [place] [place] [address] Health Maintenance Due Date Last Done Comments Breast Cancer Screening 1960 Diabetes: Ophthalmology Exam 06/13/2020 Diabetes: Pedal Pulse Checked 06/13/2020 Diabetes: Sensory Foot Exam 06/13/2020 Diabetes: Visual Foot Exam 06/13/2020 Hepatitis B Vaccine (2 of 5 - Risk Dialysis 4-dose series) 10/30/2021 02/09/2024, 10/02/2021, 10/02/2021, Additional history exists Colonoscopy (Post-Transplant Patient) 03/29/2022 Mammogram (Post-Transplant Patient) 03/29/2022 Pelvic Exam (Post-Transplant Patient) 03/29/2022 Influenza Vaccine (#1) 2023 3, 01/23/2022, 02/14/2021, Additional history exists Diabetes: Hemoglobin A1C 07/22/2024 025, 04/20/2024, 02/03/2024, Additional history exists Pneumococcal Vaccine: Pediat rics (0 to 5 Years) and At-Risk Patients (6 to 64 Years) (4 of 4 - PPSV23 or PCV20) 05/03/2026 05/03/2021, 01/05/2020, 08/13/2010 Procedures Procedure Name Priority Date/Time Associated Diagnosis Comments HEMATOLOGY Routine 05/24/2024 CHEMISTRY Routine 05/24/2024 SPECTRA IVET LAB RESULTS Routine 05/10/2024 HD KINETICS Routine 05/10/2024 POST CHEMISTRY Routine 05/10/2024 CHEMISTRY Routine 05/10/2024 CHEMISTRY Routine 2024 HEMATOLOGY Routine 2024 TRACE ELEMENTS Routine 04/30/2024 CHEMISTRY Routine 04/30/2024 HEMATOLOGY Routine 04/28/2024 SPECTRA IVET LAB RESULTS Routine 04/23/2024 HD KINETICS Routine 04/23/2024 POST CHEMISTRY Routine 04/23/2024 TRACE ELEMENTS Routine 04/23/2024 IMMUNO CHEMISTRY Routine 04/23/2024 SPECIAL CHEMISTRY Routine 04/23/2024 CHEMISTRY Routine 04/23/2024 SPECIAL CHEMISTRY Routine 04/23/2024 HEMATOLOGY Routine 04/23/2024 CHEMISTRY Routine 04/23/2024 SPECIMEN STATUS REPORT Routine 04/20/2024 12:00 AM EST HEPATITIS B CORE ANTIBODY, IGM Routine 04/20/2024 12:00 AM EST Kidney replaced by transplant History of immunosuppressive therapy Personal history of immunosuppression therapy Anemia in chronic kidney disease HEPATITIS C ANTIBODY Routine 04/20/2024 12:00 AM EST Kidney replaced by transplant History of immunosuppressive therapy Personal history of immunosuppression therapy Anemia in chronic kidney disease HEPATITIS B SURFACE ANTIGEN Routine 04/20/2024 12:00 AM EST Kidney replaced by transplant History of immunosuppressive therapy Personal history of immunosuppression therapy Anemia in chronic kidney disease HEPATITIS B SURFACE ANTIBODY QUANT Routine 04/20/2024 12:00 AM EST Kidney replaced by transplant History of immunosuppressive therapy Personal history of immunosuppression therapy Anemia in chronic kidney disease FERRITIN Routine 04/20/2024 12:00 AM EST Stage 5 chronic kidney disease (HCC) History of renal transplant Anemia in chronic kidney disease History of immunosuppressive therapy Iron deficiency anemia, not otherwise specified Type 2 diabetes mellitus, not otherwise specified (HCC) Poor glycemic control IRON PANEL (FE, TIBC, TSAT) Routine 04/20/2024 12:00 AM EST Stage 5 chronic kidney disease (HCC) History of renal transplant Anemia in chronic kidney disease History of immunosuppressive therapy Iron deficiency anemia, not otherwise specified Type 2 diabetes mellitus, not otherwise specified (HCC) Poor glycemic control CREATINE KINASE Routine 04/20/2024 12:00 AM EST Stage 5 chronic kidney disease (HCC) History of renal transplant Anemia in chronic kidney disease History of immunosuppressive therapy Iron deficiency anemia, not otherwise specified Type 2 diabetes mellitus, not otherwise specified (HCC) Poor glycemic control ALT Routine 04/20/2024 12:00 AM EST Stage 5 chronic kidney disease (HCC) History of renal transplant Anemia in chronic kidney disease History of immunosuppressive therapy Iron deficiency anemia, not otherwise specified Type 2 diabetes mellitus, not otherwise specified (HCC) Poor glycemic control AST Routine 04/20/2024 12:00 AM EST Stage 5 chronic kidney disease (HCC) History of renal transplant Anemia in chronic kidney disease History of immunosuppressive therapy Iron deficiency anemia, not otherwise specified Type 2 diabetes mellitus, not otherwise specified (HCC) Poor glycemic control HEMOGLOBIN A1C Routine 04/20/2024 12:00 AM EST Stage 5 chronic kidney disease (HCC) History of renal transplant Anemia in chronic kidney disease History of immunosuppressive therapy Iron deficiency anemia, not otherwise specified Type 2 diabetes mellitus, not otherwise specified (HCC) Poor glycemic control TACROLIMUS LEVEL Routine 04/20/2024 12:0 0 AM EST Stage 5 chronic kidney disease (HCC) History of renal transplant Anemia in chronic kidney disease History of immunosuppressive therapy Iron deficiency anemia, not otherwise specified Type 2 diabetes mellitus, not otherwise specified (HCC) Poor glycemic control PROTEIN / CREATININE RATIO, URINE Routine 04/20/2024 12:00 AM EST Stage 5 chronic kidney disease (HCC) History of renal transplant Anemia in chronic kidney disease History of immunosuppressive therapy Iron deficiency anemia, not otherwise specified Type 2 diabetes mellitus, not otherwise specified (HCC) Poor glycemic control URINALYSIS, COMPLETE Routine 04/20/2024 12:00 AM EST Stage 5 chronic kidney disease (HCC) History of renal transplant Anemia in chronic kidney disease History of immunosuppressive therapy Iron deficiency anemia, not otherwise specified Type 2 diabetes mellitus, not otherwise specified (HCC) Poor glycemic control RENAL FUNCTION PANEL Routine 04/20/2024 12:00 AM EST Stage 5 chronic kidney disease (HCC) History of renal transplant Anemia in chronic kidney disease History of immunosuppressive therapy Iron deficiency anemia, not otherwise specified Type 2 diabetes mellitus, not otherwise specified (HCC) Poor glycemic control CBC AND DIFFERENTIAL Routine 04/20/2024 12:00 AM EST Stage 5 chronic kidney disease (HCC) History of renal transplant Anemia in chronic kidney disease History of immunosuppressive therapy Iron deficiency anemia, not otherwise specified Type 2 diabetes mellitus, not otherwise specified (HCC) Poor glycemic control from Last 3 Months Results * (ABNORMAL) HEMATOLOGY (05/24/2024) Only the most recent of4 resultswithin the time period is included. Hemoglobin 8.5(L) 12.0 - 16.0 g/dL [facility] Hemoglobin x 3 25.5(L) 36.0 - 48.0 % [facility] 05/24/2024 05/25/2024 10: 21 AM EST Narrative SPECTRAE - 05/25/2024 Unless otherwise specified, test(s) performed at: [facility], [address] [place] [address] ROD BENDING MACHINE OPERATOR: Dwayne Fuentes, M.D. For any questions, please call customer service at FREQUENCY:OTHER Resulting Agency Comment Specimen source: Blood Srinivas Agrawal MD LAB BLOOD ORDERABLES Final Result Performing Organization Address City/[facility] de Phone Number [employer] See order comments or contact performing lab Unknown, [place] * (ABNORMAL) [facility] Chemistry (05/24/2024) Only the most recent of6 resultswithin the time period is included. Potassium 5.7(H) 3.5 - 5.1 mEq/L [facility] 05/24/2024 05/25/2024 9:0 6 AM EST Narrative SPECTRAE - 05/25/2024 Unless otherwise specified, test(s) performed at: [facility], [address] [place] [address] ROD BENDING MACHINE OPERATOR: Dwayne Fuentes M.D. For any questions, please call customer service at FREQUENCY:OTHER Resulting Agency Comment Specimen source: Serum Srinivas Agrawal MD LAB BLOOD ORDERABLES Final Result Performing Organization Address [facility] de Phone Number [employer] See order comments or contact performing lab Unknown, [place] * HD KINETICS (05/10/2024) Only the most recent of2 resultswithin the time period is included. % Urea Reduction 69 65 - 80 % [facility] 05/10/2024 05/13/2024 9:0 0 AM EST Narrative Resulting Agency Comment Specimen source: Plasma Srinivas Agrawal MD LAB BLOOD ORDERABLES Final Result Performing Organization Address [facility] de Phone Number [employer] See order comments or contact performing lab Unknown, [place] * POST CHEMISTRY (05/10/2024) Only the most recent of2 resultswithin the time period is included. BUN Post Dialysis 15 6 - 19 mg/dL [facility] 05/10/2024 05/13/2024 9: 00 AM EST Narrative SANTY - 05/13/2024 Unless otherwise specified, test(s) performed at: [facility], [address] [place] [address] ROD BENDING MACHINE OPERATOR: Dwayne Fuentes M.D. For any questions, please call customer service at FREQUENCY:OTHER Resulting Agency Comment Specimen source: Plasma Srinivas Agrawal MD LAB BLOOD ORDERABLES Final Result Performing Organization Address City/[facility]/ZIP Co de Phone Number [facility] See order comments or contact performing lab Unknown, [place] * Spectra IVET Lab Results (05/10/2024) Only the most recent of2 resultswithin the time period is included. [facility] WSTDKT/V 2.3 [facility] eKdrt/V 1.12 [facility] spKt/V Gotch 1.36 [facility] ge Center eKt/V Gotch 1.12 [facility] e Center eNPCR 0.67 [facility] eKt/V ([place]) 1.16 [facility] nPCR_HD 0.72 [facility] Center PCR 30.85 [facility] spKt/V (Daugirdas II) 1.39 [facility] 05/10/2024 05/10/2024 [facility] Ordering Provider LAB BLOOD ORDERABLES Final Result Performing Organization Address City/[facility] Co de Phone Number [facility] Contact Performing lab Unknown, [place] * (ABNORMAL) TRACE ELEMENTS (04/30/2024) Only the most recent of2 resultswithin the time period is included. Pathologist [facility] Aluminum 31(H) 0 - 10 mcg/L [facility] Comment: This test was developed and its performance characteristics determined by [facility]. It has not been cleared or approved by the FDA. The laboratory is regulated under CLIA as qualified to perform high complexity testing. This test is used for clinical purposes. It should not be regarded as investigational or for research. Verified by repeat analysis. Questionable result; result is significantly different from previous value. 04/30/2024 05/04/2024 9:5 8 AM EST Narrative SPECTRAE - 05/04/2024 Unless otherwise specified, test(s) performed at: [facility], [address] [place], [place] [id number] ROD BENDING MACHINE OPERATOR: Dwayne Fuentes M.D. For any questions, please call customer service at FREQUENCY:OTHER Resulting Agency Comment Specimen source: Serum Srinivas Agrawal MD LAB BLOOD ORDERABLES Final Result Performing Organization Address [facility] Co de Phone Number [facility] See order comments or contact performing lab Unknown, [place] * SPECIAL CHEMISTRY (04/23/2024) Only the most recent of2 resultswithin the time period is included. [facility] Vitamin D, 25-OH, Total 48.2 30.0 - 100.0 ng/mL [facility] Comment: Please Note:? Effective February 17, 2023, the methodology for this test has changed to the SIEMENS RattleAUR. 04/23/2024 04/24/2024 3:5 5 PM EST Narrative Resulting Agency Comment Specimen source: Serum Srinivas Agrawal MD LAB BLOOD BANK TEST ORDERA BLES Final Result Performing Organization Address [facility] de Phone Number [employer] [facility] See order comments or contact performing lab Unknown, [place] * IMMUNO CHEMISTRY (04/23/2024) [facility] Hep B Surface Ag Negative Negative [facility] Hepatitis B Surface Ab 632 mIU/mL [facility] Comment: The anti-HBs (Hepatitis B surface antibody) is greater than or equal to 10 mIU/mL and implies immunity. The patient has either had an antibody response to HBV vaccination, received a transfusion, or has recovered from HBV infection. For post-vaccination antibody testing guidelines for the general public, refer to MMWR April 12, 2005/Vol.54 (No. 16); 1-23, and for healthcare workers, refer to MMWR April 09, 2013/Vol.62 (No. 10); 1-18. Reference Range: <10 mIU/mL ? Non-Immune >=10 mIU/mL ?Immune The magnitude of the measured result above 10 mIU/mL is not indicative of the total amount of antibody present. Hep B Core Total Ab Negative Negative [facility] Comment: Hep B Core Ab, Total appears during the acute infection stage and remains reactive/positive throughout the recovery stage. The above test result was obtained using Siemens Centaur XP chemiluminescent method. Results obtained with different assay methods or kits cannot be used interchangeably. Hepatitis C Antibody Nonreactive Nonreactive [facility] Comment: No HCV antibody detected. The above test result was obtained using Siemens Centaur XP chemiluminescent method. Results obtained with different assay methods or kits cannot be used interchangeably. S/CO Ratio 0.02 0.00 - 0.79 [facility] Comment: s/co ratio ?Interpretation ?Supplemental testing <0.80 ? Nonreactive ? No further testing required. 0.80-0.99 ? Equivocal ? HCV RNA Quantitative Real-Time PCR is recommended. 1.00->11.00 ?? Reactive ?HCV RNA Quantitative Real-Time PCR is recommended to distinguish active from resolved cases. 04/23/2024 04/24/2024 3:5 5 PM EST Narrative Resulting Agency Comment Specimen source: Serum us Srinivas Agrawal MD LAB BLOOD ORDERABLES Final Result [facility] See order comments or contact performing lab Unknown, [place] * SPECIMEN STATUS REPORT (04/20/2024 12:00 AM EST) Specimen Status Comment [facility] Comment: No Urine Received No Urine Received Test not performed. No urine specimen received. ?TEST: ??[id number] ??UA/M w/rflx Culture, Routine ? [id number] ??Prot+CreatU (Random) 04/20/2024 04/20/2024 Comment:Blood, Venou Srinivas Agrawal MD LAB BLOOD ORDERABLES Final Result Performing Organization Address [facility] de Phone Number [facility] [address] [place] [address] * (ABNORMAL) Tacrolimus level (04/20/2024 12:00 AM EST) Pathologist [facility] Tacrolimus Lvl 32.3(HH) 2.0 - 20.0 ng/mL [facility] Comment: ?Trough (immediately following ?transplant) ? 15.0 ?Trough (steady state, 2 weeks or ?more after transplant): ?3.0 - 8.0 ?Performed by LC-MS/MS technology. Patient drug level exceeds published reference range. ??Evaluate clinically for signs of potential toxicity. Blood (Blood, Venous) 04/20/2024 04/20/2024 Comment:Blood, Venou Narrative [facility] 04/27/2024 4:06 PM EST Test(s) [id number] ([id number]), Blood was developed and its performance characteristics determined by [facility]. It has not been cleared or approved by the Food and Drug Administration. Srinivas Agrawal MD LAB BLOOD ORDERABLES Final Result Performing Organization Address City/[facility]/ZIP Co de Phone Number [facility] [address] [place] [phone] * Hepatitis C antibody (04/20/2024 12:00 AM EST) Hep C Virus Ab Non Reactive Non Reactive [facility] Comment: HCV antibody alone does not differentiate between previously resolved infection and active infection. Equivocal and Reactive HCV antibody results should be followed up with an HCV RNA test to support the diagnosis of active HCV infection. Blood (Blood, Venous) 04/20/2024 04/20/2024 Comment:Blood, Venou Srinivas Agrawal MD LAB BLOOD ORDERABLES Final Result [facility] [address], [address] [place] [address] * (ABNORMAL) Iron Panel (Fe, TIBC, TSAT) (04/20/2024 12:00 AM EST) TIBC 109(LL) 250 - 450 ug/dL [facility] UIBC 90(L) 118 - 369 ug/dL [facility] Iron 19(L) 27 - 139 ug/dL [facility] Iron Saturation (TSat) 17 15 - 55 % [facility] Blood (Blood, Venous) 04/20/2024 04/20/2024 Comment:Blood, Venou Srinivas Agrawal MD LAB BLOOD ORDERABLES Final Result [facility] [address] [place] [address] * Hepatitis B core antibody, IgM (04/20/2024 12:00 AM EST) Hep B Core IgM Negative Negative [facility] Blood (Blood, Venous) 04/20/2024 04/20/2024 Comment:Blood, Venou Srinivas Agrawal MD LAB BLOOD ORDERABLES Final Result [facility] Kalpana Ravi [address], [address] [place] [address] * Hepatitis B surface antibody (04/20/2024 12:00 AM EST) [facility] Hepatitis B Surface Ab 1,682.0 Immunity>1 0 mIU/mL [facility] Comment: Results confirmed on dilution. ??Status of Immunity ? Anti-HBs Level ? Inconsistent with Immunity ?0.0 - 10.0 Consistent with Immunity ? >10.0 Blood (Blood, Venous) 04/20/2024 04/20/2024 Comment:Blood, Venou Srinivas Agrawal MD LAB BLOOD ORDERABLES Final Result Performing Organization Address City/[facility]/ZIP Co de Phone Number SY Kalpana Ravi [address], [address] [place] [address] * Hepatitis B surface antigen (04/20/2024 12:00 AM EST) [facility] Hep B Surface Ag Negative Negative [facility] Blood (Blood, Venous) 04/20/2024 04/20/2024 Comment:Blood, Venou Srinivas Agrawal MD LAB BLOOD ORDERABLES Final Result KALPANA Ravi [address], [address] [place] [address] * (ABNORMAL) CBC and Differential (04/20/2024 12:00 AM EST) [facility] WBC 11.3(H) 3.4 - 10.8 x10E3/uL [facility] RBC 2.92(L) 3.77 - 5.28 x10E6/uL [facility] Hemoglobin 7.9(L) 11.1 - 15.9 g/dL [facility] Hematocrit 27.3(L) 34.0 - 46.6 % [facility] MCV 94 79 - 97 fL [facility] MCH 27.1 26.6 - 33.0 pg [facility] MCHC 28.9(L) 31.5 - 35.7 g/dL [facility] RDW 15.2 11.7 - 15.4 % [facility] Platelets 193 150 - 450 x10E3/uL [facility] Neutrophils Relative 89 Not Estab. % [facility] Lymphocytes Relative 3 Not Estab. % [facility] Monocytes 7 Not Estab. % [facility] Eosinophils Relative 0 Not Estab. % [facility] Basophils Relative 0 Not Estab. % [facility] Neutrophils Absolute 10.0(H) 1.4 - 7.0 x10E3/uL [facility] Lymphocytes Absolute 0.4(L) 0.7 - 3.1 x10E3/uL [facility] Monocytes Absolute 0.8 0.1 - 0.9 x10E3/uL [facility] Eosinophils Absolute 0.0 0.0 - 0.4 x10E3/uL [facility] Basophils Absolute 0.0 0.0 - 0.2 x10E3/uL [facility] Immature Granulocytes 1 Not Estab. % [facility] Immature Grans (Absolute) 0.1 0.0 - 0.1 x10E3/uL [facility] Blood (Blood, Venous) 04/20/2024 04/20/2024 Comment:Blood, Venou Srinivas Agrawal MD LAB BLOOD ORDERABLES Final Result Performing Organization Address City/[facility]/ZIP Co de Phone Number [facility] [address] [place] [address] * ALT (04/20/2024 12:00 AM EST) ALT (SGPT) 8 0 - 32 IU/L [facility] Blood (Blood, Venous) 04/20/2024 04/20/2024 Comment:Blood, Venou Srinivas Agrawal MD LAB BLOOD ORDERABLES Final Result Performing Organization Address [facility] Co de Phone Number [facility] [address] [place] [address] * AST (04/20/2024 12:00 AM EST) AST (SGOT) 9 0 - 40 IU/L [facility] Blood (Blood, Venous) 04/20/2024 04/20/2024 Comment:Blood, Venou Srinivas Agrawal MD LAB BLOOD ORDERABLES Final Result Performing Organization Address City/[facility]/ZIP Co de Phone Number [facility] [address] [place] [address] * (ABNORMAL) Hemoglobin A1c (04/20/2024 12:00 AM EST) Pathologist [facility] Hemoglobin A1C 6.1(H) 4.8 - 5.6 % [facility] Comment: ? Prediabetes: 5.7 - 6.4 ? Diabetes: >6.4 ? Glycemic control for adults with diabetes: <7.0 Blood (Blood, Venous) 04/20/2024 04/20/2024 Comment:Blood, Venou Result [facility] Srinivas Agrawal MD LAB BLOOD ORDERABLES Final Result Performing Organization Address City/[facility]/ZIP Co de Phone Number [facility] [address] [place] [address] * (ABNORMAL) Ferritin (04/20/2024 12:00 AM EST) [facility] Ferritin 3,884(H) 15 - 150 ng/mL [facility] Comment: Results confirmed on dilution. Blood (Blood, Venous) 04/20/2024 04/20/2024 Comment:Blood, Venou Result [facility] Srinivas Agrawal MD LAB BLOOD ORDERABLES Final Result [facility] [address] [place] [address] * (ABNORMAL) CK (04/20/2024 12:00 AM EST) Pathologist [facility] Creatine Kinase (CK/CPK) 9(L) 32 - 182 U/L [facility] Blood (Blood, Venous) 04/20/2024 04/20/2024 Comment:Blood, Venou Result [facility] Srinivas Agrawal MD LAB BLOOD ORDERABLES Final Result [facility] [address] [place] [address] * (ABNORMAL) Renal Function Panel (04/20/2024 12:00 AM EST) Glucose 187(H) 70 - 99 mg/dL [facility] BUN 38(H) 8 - 27 mg/dL [facility] Creatinine 3.26(H) 0.57 - 1.00 mg/dL [facility] eGFR CKD-EPI CR 2020 15(L) >59 mL/min/1.7 3 [facility] BUN/Creatinine Ratio 12 12 - 28 [facility] Sodium 143 134 - 144 mmol/L [facility] Potassium 3.8 3.5 - 5.2 mmol/L [facility] Chloride 110(H) 96 - 106 mmol/L [facility] Bicarbonate (CO2) 17(L) 20 - 29 mmol/L [facility] Calcium 9.0 8.7 - 10.3 mg/dL [facility] Albumin 2.9(L) 3.9 - 4.9 g/dL [facility] Phosphorus 2.1(L) 3.0 - 4.3 mg/dL [facility] Blood (Blood, Venous) 04/20/2024 04/20/2024 Comment:Blood, Venou Srinivas Agrawal MD LAB BLOOD ORDERABLES Final Result [facility] [address] [place] [address] from Last [address] [place] [address] [place] [address] MEDICARE MEDICARE [facility] Care Teams Cleaner And Presser Relationship Specialty Start Date End Date Marita Wetzel DO [address] [place] [address] PCP - General Family Medicine 11/14/22
--- OUTSIDE RECORDS SUMMARY | 2024-05-27 20:21 | XMS_ITS | Encounter Summary ---
Author Organization [facility] [employer] [facility] Address [address] [place] [address] Phone Care Team Providers Care Paraffiner Name Role Phone Marita Wetzel DO Primary Care Provider Unava ilable Encounter Details Date Type Department Care Team (Late st Contact Info) Description 07/04/2023 Documentation Only [facility] [address] [place] [phone] Pauline Aguayo [address] [place] [address] Social History Tobacco Use Types [...] Support [facility] Center [address] [place] [address] 06/29/2024 7:30 AM EDT Scheduled Only [facility] [address] [place] [phone] documented as of this encounter Visit Diagnoses Not on filedocumented in this encounter Care Teams Paraffiner Relationship Specialty Start Date End Date Marita Wetzel DO [address] [place] [address] PCP - General Family Medicine 11/14/22 documented as of this encounter
--- OUTSIDE RECORDS SUMMARY | 2024-05-27 20:21 | XMS_ITS | Encounter Summary ---
Author Organization [facility] Address [address] [place] [address] Phone Care Team Providers Care District Manager Primary Care Sales Name Role Phone Marita Wetzel DO Primary Care Provider Unava ilable Encounter Details Date Type Department Care Team (Late st Contact Info) Description 01/01/2024 Documentation Only [facility] [address] [place] [phone] [place], [place], [place] [address] [place] [phone] Social History Tobacco Use Types Packs/Day Years [...] Support [facility] V[facility] Access Center [address] [place] [phone] 06/29/2024 7:30 AM EDT Scheduled Only [facility] Vascular Access [place] [address] [place] [phone] documented as of this encounter Visit Diagnoses Not on filedocumented in this encounter Care Teams District Manager Primary Care Sales Relationship Specialty Start Date End Date Marita Wetzel DO [address] [place] [address] PCP - General Family Medicine 11/14/22 documented as of this encounter
--- OUTSIDE RECORDS SUMMARY | 2024-05-27 20:21 | XMS_ITS | Encounter Summary ---
Author Organization [facility] Address [address] [place] [address] Care Team Providers Care Research Nurse Practitioner Name Role Phone Marita Wetzel DO Primary Care Provider +1- [phone] Encounter Details Date Type Department Care Team (Late st Contact Info) Description 04/28/2024 Lab Requisition [facility] - Main Lab [address] [facility] [place] [phone] Marily Gordillo MD [address] [place] [address] Chronic kidney disease, unspecified; Anemia, [...] unspecified documented in this encounter Care Teams Research Nurse Practitioner Relationship Specialty Start Date End Date Marita Wetzel DO [address] [place] [address] PCP - General 01/09/23 documented as of this encounter
--- OUTSIDE RECORDS SUMMARY | 2024-05-27 20:21 | XMS_ITS | Encounter Summary ---
Author Organization [facility] Address [address] [place] [address] Care Team Providers Care It Trainer Name Role Phone Marita Wetzel DO Primary Care Provider +1- [phone] Encounter Details Date Type Department Care Team (Late st Contact Info) Description 2024 Lab Requisition [facility] - Main Lab [address] [facility] [place] [phone] Marily Gordillo MD [address] [place] [address] Chronic kidney disease, unspecified; Anemia, [...] unspecified documented in this encounter Care Teams It Trainer Relationship Specialty Start Date End Date Marita Wetzel DO [address] [place] [address] PCP - General 01/09/23 documented as of this encounter
--- OUTSIDE RECORDS SUMMARY | 2024-05-27 20:21 | XMS_ITS | Encounter Summary ---
Author Organization [facility], [place] [address] [place] [address] Phone Care Team Providers Care Marketing Administrator Name Role Phone Marita Wetzel DO Primary Care Provider Unava ilable Encounter Details Date Type Department Care Team (Late st Contact Info) Description 05/24/2024 Orders Only [facility] [address] [place] [address] Srinivas Agrawal MD [address] [place] [address] [place] [place] [phone] Social History Tobacco Use Types Packs/Day Years [...] Support [facility] Vascular Access Center [address] [place] [address] [place] [phone] 06/29/2024 7:30 AM EDT Scheduled Only [facility] V[facility] Access Center [address] [place] [address] [place] [phone] documented as of this encounter Procedures Procedure Name Priority Date/Time Associated Diagnosis Comments HEMATOLOGY Routine 05/24/2024 CHEMISTRY Routine 05/24/2024 documented in this encounter Results * (ABNORMAL) HEMATOLOGY (05/24/2024) Hemoglobin 8.5(L) 12.0 - 16.0 g/dL [facility] Hemoglobin x 3 25.5(L) 36.0 - 48.0 % [facility] 05/24/2024 05/25/2024 10: 21 AM EST Narrative [facility] - 05/25/2024 Unless otherwise specified, test(s) performed at: [facility], [address] [place] [address] PHOTOENGRAVING MACHINE OPERATOR/TENDER: Dwayne Fuentes M.D. For any questions, please call customer service at FREQUENCY:OTHER Resulting Agency Comment Specimen source: Blood Srinivas Agrawal MD LAB BLOOD ORDERABLES Final Result Performing Organization Address [facility] de Phone Number [facility] See order comments or contact performing lab Unknown, [place] * (ABNORMAL) [facility] (05/24/2024) Pathologist [facility] Potassium 5.7(H) 3.5 - 5.1 mEq/L [facility] 05/24/2024 05/25/2024 9:0 6 AM EST Narrative [facility] - 05/25/2024 Unless otherwise specified, test(s) performed at: [facility], [address] [place] [address] PHOTOENGRAVING MACHINE OPERATOR/TENDER: Dwayne Fuentes M.D. For any questions, please call customer service at FREQUENCY:OTHER Resulting Agency Comment Specimen source: Serum Srinivas Agrawal MD LAB BLOOD ORDERABLES Final Result Performing Organization Address [facility] Co de Phone Number [facility] See order comments or contact performing lab Unknown, [place] documented in this encounter Visit Diagnoses Not on filedocumented in this encounter Care Teams Marketing Administrator Relationship Specialty Start Date End Date Marita Wetzel DO [address] [place] [address] PCP - General Family Medicine 11/14/22 documented as of this encounter
--- OUTSIDE RECORDS SUMMARY | 2024-05-27 20:21 | XMS_ITS | Encounter Summary ---
Author Organization [facility] Address [address] [place] [address] Care Team Providers Care Cognos Tm1 Developer Name Role Phone Marita Wetzel Primary Care Provider +1- [phone] Encounter Details Date Type Department Care Team (Late st Contact Info) Description 04/23/2024 Lab Requisition [facility] - Main Lab [address] [place] [phone] Marily Gordillo MD [address] [place] [phone] Chronic embolism and thrombosis of unspecified vein; [...] Procedure Name Priority Date/Time Associated Diagnosis Comments RENAL FUNCTION PANEL Routine 04/26/2024 6:18 AM EST Chronic embolism and thrombosis of unspecified vein Acute kidney failure, unspecified (CMS/HCC) documented in this encounter Results * (ABNORMAL) Renal function panel (04/26/2024 6:18 AM EST) Sodium 143 133 - 145 mmol/L LAB CHEMISTRY METHOD 04/26/2024 9:11 AM EST [facility] Potassium 3.4(L) 3.5 - 5.5 mmol/L LAB CHEMISTRY METHOD 04/26/2024 9:11 AM EST [facility] Chloride 109 96 - 110 mmol/L LAB CHEMISTRY METHOD 04/26/2024 9:11 AM [facility] CO2 27 21 - 32 mmol/L LAB CHEMISTRY METHOD 04/26/2024 9:11 AM [facility] Anion Gap 7 3 - 11 LAB CHEMISTRY METHOD 04/26/2024 9:11 AM [facility] Glucose 80 70 - 100 mg/dL LAB CHEMISTRY METHOD 04/26/2024 9:11 AM [facility] BUN 29(H) 5 - 25 mg/dL LAB CHEMISTRY METHOD 04/26/2024 9:11 AM [facility] Creatinine 3.36(H) 0.50 - 1.10 mg/dL LAB CHEMISTRY METHOD 04/26/2024 9:11 AM [facility] eGFR 15(L) >=60 mL/min/1. 73m2 LAB CHEMISTRY METHOD 04/26/2024 9:11 AM [facility] Comment:Calculation based on the??Chronic Kidney Disease Epidemiology Collaboration (CKD-EPI) equation refit??without adjustment for race. BUN/Creatinine Ratio 8.6 LAB CHEMISTRY METHOD 04/26/2024 9:11 AM [facility] Albumin 2.1(L) 3.2 - 5.0 g/dL LAB CHEMISTRY METHOD 04/26/2024 9:11 AM [facility] Calcium 8.7 8.5 - 10.5 mg/dL LAB CHEMISTRY METHOD 04/26/2024 9:11 AM [facility] Phosphorus 2.5 2.5 - 4.5 mg/dL LAB CHEMISTRY METHOD 04/26/2024 9:11 AM [facility] Blood Venous blood specimen / Unknown Venipuncture / Unknown 04/26/2024 6:18 AM EST 04/26/2024 8:28 AM EST Marily Gordillo MD LAB BLOOD ORDERABLES [facility] [address] [place] [address], documented in this encounter Visit Diagnoses Diagnosis Chronic embolism and thrombosis of unspecified vein Acute kidney failure, unspecified (CMS/HCC) Acute kidney failure, unspecified documented in this encounter Care Teams Cognos Tm1 Developer Relationship Specialty Start Date End Date Marita Wetzel DO [address] [place] [address] PCP - General 01/09/23 documented as of this encounter
--- OUTSIDE RECORDS SUMMARY | 2024-05-27 20:21 | XMS_ITS | Encounter Summary ---
Author Organization [facility] Address [address] [place] [address] Care Team Providers Care Professor Of Spanish Name Role Phone Marita Wetzel DO Primary Care Provider +1- [phone] Encounter Details Date Type Department Care Team (Late st Contact Info) Description 05/21/2024 Lab Requisition [facility] - Main Lab [address] [facility] [employer] [place] [phone] Marily Gordillo MD [address] [place] [phone] Chronic embolism and thrombosis of unspecified vein; [...] unspecified documented in this encounter Care Teams Professor Of Spanish Relationship Specialty Start Date End Date Marita Wetzel DO [address] [place] [address] PCP - General 01/09/23 documented as of this encounter
--- OUTSIDE RECORDS SUMMARY | 2024-05-27 20:21 | XMS_ITS | Encounter Summary ---
Author Organization [facility] Address [address] [place] [address] Care Team Providers Care Typing Checker Name Role Phone Marita Wetzel DO Primary Care Provider +1- [phone] Encounter Details Date Type Department Care Team (Late st Contact Info) Description 05/15/[address] [facility] - Main Lab [address] [facility] [place] [phone] Marily Gordillo MD [address] [place] [phone] Chronic embolism and thrombosis of unspecified vein; [...] unspecified documented in this encounter Care Teams Typing Checker Relationship Specialty Start Date End Date Marita Wetzel DO [address] [place] [address] PCP - General 01/09/23 documented as of this encounter
--- OUTSIDE RECORDS SUMMARY | 2024-05-27 20:21 | XMS_ITS | Encounter Summary ---
Author Organization [facility] Address [address] [place] [address] Phone Care Team Providers Care Timber Supervisor Name Role Phone Marita Wetzel DO Primary Care Provider Unava ilable Encounter Details Date Type Department Care Team (Late st Contact Info) Description 12/09/2022 Documentation Only [facility] [address] [place] [phone] Candace Adam PA Social History Tobacco Use Types Packs/Day Years [...] Encounters Date Type Department Care Team (Late Contact Info) Description 06/10/2024 11:45 PM EST Clinical Support [facility] V[facility] Access Center [address] [place] [phone] 06/29/2024 7:30 AM EDT Scheduled Only [facility] Vascular Access [place] [address] [place] [phone] documented as of this encounter Visit Diagnoses Not on filedocumented in this encounter Care Teams Timber Supervisor Relationship Specialty Start Date End Date Marita Wetzel DO [address] [place] [address] PCP - General Family Medicine 11/14/22 documented as of this encounter
--- OUTSIDE RECORDS SUMMARY | 2024-05-27 20:21 | XMS_ITS ---
Author Organization [facility] [place] Address Unknown Allergies, Adverse Reactions, Alerts Substance Reaction Status Noted Date Resolved Date oxyCODONE active 03/04/2023 Codeine active 03/04/2023 Medications Medication Dose Frequency Directions Start Date End Ed e Acetaminophen Tablet 325 MG 2 {tbl} Give 2 tablet by neftaly th every 4 hours as needed for Mild Pain More than 3 doses in 48 hours, notify physician/advanced practice provider(LUCRECIA).Do not exceed 3g/day. (standing order) 04/13/2024 Acetaminophen Tablet 325 MG 2 {tbl} Give 2 tablet by neftaly th every 6 hours as needed for Temp 100F or above Notify Physician/Advanced Practice provider. Do not exceed 3g/day 04/13/2024 AmLODIPine Besylate Tablet 10 MG 1 {tbl} 24 h Give 1 tablet via G-Tube one time a day for HTN 04/14/2024 Ondansetron HCl Tablet 4 MG 1 {tbl} Give 1 tablet by neftaly th every 6 hours as needed for Nausea and Vomiting 04/13/2024 Sodium Bicarbonate Oral Tablet 650 MG 1300 mg 12 h Give 1300 mg by mout h two times a day for supplement 04/13/2024 05/12/2024 Carvedilol Tablet 25 MG 1 {tbl} 12 h Give 1 tablet by neftaly th two times a day for Hypertension take with food. 04/13/2024 Isosorbide Mononitrate ER Tablet Extended Release 24 Hour 30 MG 1 {tbl} 24 h Give 1 tablet by neftaly th one time a day for hypertension 04/14/2024 Mycophenolic Acid Oral Tablet Delayed Release 360 MG 180 mg 12 h Give 180 mg by mouth two times a day for prevent organ rejection 04/13/2024 PredniSONE Tablet 2.5 MG 7.5 mg 24 h Give 7.5 mg by mouth one time a day for organ rejection 04/14/2024 Milk of Magnesia Suspension 400 MG/5ML 30 mL Give 30 ml by mouth as needed for Constipation give at bedtime if no BM in 3 days. 04/13/2024 Saline Laxative Enema 1 {Dose} Insert 1 dose rectal ly as needed for Constipation if no result from Dulcolax within 2 hours. If no results from Saline laxative enema, call MD/advanced practice provider (LUCRECIA) for further orders 04/13/2024 Dulcolax Suppository 10 MG 1 Insert 1 suppository rectally as needed for Constipation if no result from MOM by next shift. 04/13/2024 Epoetin Bassem Solution 95661 UNIT/ML 30881 24 h Inject 02765 unit subcutaneously one time a day every Mon for Hold for Hbg > 10 04/19/2024 05/04/2024 Dilaudid Oral Tablet 4 MG 1 {tbl} Give 1 tablet by neftaly th every 4 hours as needed for pain 04/13/2024 Benadryl Allergy Oral Tablet 12.5 mg Give 12.5 mg by mout h as needed for itchiness Give BID as needed 04/13/2024 Sertraline HCl Tablet 25 MG 1 {tbl} 24 h Give 1 tablet by neftaly th one time a day for Depression. 04/14/2024 Tacrolimus ER Oral Tablet Extended Release 24 Hour 1 MG 10 mg 24 h Give 10 mg by mouth one time a day for organ rejection before breakfast 04/14/2024 Insulin Lispro Subcutaneous Solution Pen-injector 200 UNIT/ML Inject as per slidin g scale: if 150 - 199 = 2 units ; 200 - 249 = 4 units; 250 - 299 = 6 units; 300 - 349 = 8 units; 350 - 399 = 10units; 400+ call MD for further orders , subcutaneously with meals for DM. 04/13/2024 Nephro Vitamins Oral Tablet 0.8 MG 1 {tbl} 24 h Give 1 tablet by neftaly th one time a day for supplement 04/14/2024 Naloxone HCl Solution 0.4 MG/ML 0.4 mg/mL Inject 0.4 mg/ml intramuscularly every 2 minutes as needed for sign of opioid overdose Maybe repeated every two (2)to three(3)minutes for unresponsiveness or difficulty breathing,until individual is breathing (respiratory rate greater than 10)Initiate emergency medical response protocol (e.g.,[id number])and transfer to the hospital 04/15/[address] 40 MG TAB 40 mg 24 h Give 40 mg by mouth one time a day for GERD 04/26/2024 05/06/2024 Epoetin Bassem Injection Solution 74717 UNIT/ML 69961 24 h Inject 96341 unit subcutaneously one time a day for anemia hold for HbG greater than 10 2024 2024 Epoetin Bassem Injection Solution 39583 UNIT/ML 28363 24 h Inject 97464 unit subcutaneously one time a day every Wed for anemia hold for HbG greater than 10 2024 05/06/2024 Retacrit Injection Solution 74370 UNIT/ML 11797 24 h Inject 67983 unit intramuscularly one time a day every Wed for hold for H/H < 10 05/12/2024 Omeprazole Capsule Delayed Release 20 MG 1 {Capsule} 24 h Give 1 capsule by mouth one time a day for acid indigestion 05/07/2024 Sodium Bicarbonate Oral Tablet 650 MG 2 {tbl} 12 h Give 2 tablet by neftaly two times a day for supplement 05/12/2024 Medications Administered Medication Dose Frequency Status Start Date End Date Acetaminophen Tablet 325 MG 2 {tbl} 05/03/2024 Acetaminophen Tablet 325 MG 2 {tbl} 04/13/2024 AmLODIPine Besylate Tablet 10 MG 1 {tbl} 24 h Hospitalized 05/17/2024 Ondansetron HCl Tablet 4 MG 1 {tbl} 05/10/2024 Sodium Bicarbonate Oral Tablet 650 MG 1300 mg 12 h No / See Nurse Notes 05/12/2024 Carvedilol Tablet 25 MG 1 {tbl} 12 h Hospitalized 05/17/2024 Isosorbide Mononitrate ER Tablet Extended Release 24 Hour 30 MG 1 {tbl} 24 h Hospitalized 05/17/2024 Mycophenolic Acid Oral Tablet Delayed Release 360 MG 180 mg 12 h Hospitalized 05/17/2024 PredniSONE Tablet 2.5 MG 7.5 mg 24 h Hospitalized 05/17/2024 Milk of Magnesia Suspension 400 MG/5ML 30 mL 04/13/2024 Saline Laxative Enema 1 {Dose} 04/13/20 Dulcolax Suppository 10 MG 1 04/13/2024 Epoetin Bassem Solution 60601 UNIT/ML 84727 24 h No / See Nurse Notes 05/04/2024 Dilaudid Oral Tablet 4 MG 1 {tbl} 05/11/2024 Benadryl Allergy Oral Tablet 12.5 mg 05/06/2024 Sertraline HCl Tablet 25 MG 1 {tbl} 24 h 05/17/2024 Tacrolimus ER Oral Tablet Extended Release 24 Hour 1 MG 10 mg 24 h Hospitalized 05/17/2024 Insulin Lispro Subcutaneous Solution Pen-injector 200 UNIT/ML Hospitalized 05/17/2024 Nephro Vitamins Oral Tablet 0.8 MG 1 {tbl} 24 h 05/17/2024 Naloxone HCl Solution 0.4 MG/ML 0.4 mg/mL 04/15/[address] 40 MG TAB 40 mg 24 h 05/06/2024 Epoetin Bassem Injection Solution 27999 UNIT/ML 45254 24 h 2024 Epoetin Bassem Injection Solution 70259 UNIT/ML 17971 24 h 05/06/2024 Retacrit Injection Solution 87864 UNIT/ML 31684 24 h Hospitalized 05/12/2024 Omeprazole Capsule Delayed Release 20 MG 1 {Capsule} 24 h Hospitalized 05/17/2024 Sodium Bicarbonate Oral Tablet 650 MG 2 {tbl} 12 h Hospitalized 05/17/2024 Problems Problem Status Start Date End Date FRACTURE OF UNSPECIFIED PART OF NECK OF LEFT FEMUR, SUBSEQUENT ENCOUNTER FOR CLOSED FRACTURE WITH ROUTINE HEALING (Primary) (S72.002D - ICD-10-CM) ACTIVE 02/20/2024 ANEMIA, UNSPECIFIED (Primary) (D64.9 - ICD-10-CM) RESO LVED 03/04/2023 03/27/2023 ACUTE KIDNEY FAILURE, UNSPECIFIED (N17.9 - ICD-10-CM) ACTIVE 03/28/2024 ACUTE KIDNEY FAILURE, UNSPECIFIED (N17.9 - ICD-10-CM) RESOLVED 03/04/2023 03/27/2023 ANEMIA IN CHRONIC KIDNEY DISEASE (D63.1 - ICD-10-CM) A CTIVE 03/28/2024 ACUTE CYSTITIS WITHOUT HEMATURIA (N30.00 - ICD-10-CM) RESOLVED 03/11/2023 03/27/2023 UNSPECIFIED TRANSPLANTED ORG AN AND TISSUE REJECTION (T86.91 - ICD-10-CM) ACTIVE 03/28/2024 TYPE 2 DIABETES MELLITUS WIT H DIABETIC CHRONIC KIDNEY DISEASE (E11.22 - ICD-10-CM) ACTIVE 02/20/2024 KLEBSIELLA PNEUMONIAE [K. 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) ACTIVE 03/04/2023 ACUTE RESPIRATORY FAILURE WI TH HYPOXIA (J96.01 - ICD-10-CM) RESOLVED 03/04/2023 03/27/2023 TYPE 2 DIABETES MELLITUS WIT HOUT COMPLICATIONS (E11.9 - ICD-10-CM) ACTIVE 03/04/2023 DYSPHAGIA, ORAL PHASE (R13.11 - ICD-10-CM) ACTIVE 02/24/2024 MUSCLE WEAKNESS (GENERALIZED) (M62.81 - ICD-10-CM) ACT ANA 02/23/2024 CELLULITIS, UNSPECIFIED (L03.90 - ICD-10-CM) RESOLVED 03/04/2023 03/27/2023 UNSTEADINESS ON FEET (R26.81 - ICD-10-CM) ACTIVE 02/21/2024 URINARY TRACT INFECTION, SIT E NOT SPECIFIED (N39.0 - ICD-10-CM) RESOLVED 03/04/2023 03/27/2023 EXTENDED SPECTRUM BETA LACTA VIDAL (ESBL) RESISTANCE (Z16.12 - ICD-10-CM) ACTIVE 03/11/2023 CYSTITIS, UNSPECIFIED WITHOU T HEMATURIA (N30.90 - ICD-10-CM) RESOLVED 03/04/2023 03/27/2023 UNSPECIFIED FALL, SUBSEQUENT ENCOUNTER (W19.XXXD - ICD-10-CM) ACTIVE 02/20/2024 ESSENTIAL (PRIMARY) HYPERTENSION (I10 - ICD-10-CM) ACT ANA 03/04/2023 ADJUSTMENT DISORDER WITH DEP RESSED MOOD (F43.21 - ICD-10-CM) ACTIVE 02/23/2024 GASTROSTOMY STATUS (Z93.1 - ICD-10-CM) RESOLVED 03/27/2023 HYPERLIPIDEMIA, UNSPECIFIED (E78.5 - ICD-10-CM) ACTIVE 03/04/2023 GASTRO-ESOPHAGEAL REFLUX DIS EASE WITHOUT ESOPHAGITIS (K21.9 - ICD-10-CM) ACTIVE 03/04/2023 PNEUMONIA, UNSPECIFIED ORGANISM (J18.9 - ICD-10-CM) RE SOLVED 03/04/2023 03/27/2023 ADULT FAILURE TO THRIVE (R62.7 - ICD-10-CM) ACTIVE 03/04/2023 OTHER ABNORMALITIES OF GAIT AND MOBILITY (R26.89 - ICD-10-CM) ACTIVE 04/15/2024 Encounters Encounter Performer Performer Role Encounter Diagnoses Location Date Discharge - Discharged / Transferred to another [facility] - [facility] [place] 03/04/2023 03:32 pm EST - 03/05/2023 09:01 am EST Leave - [facility] [place] 03/11/2023 02:28 pm EST - 03/14/2023 11:05 pm EST Discharge - Discharged to home or self care - *Home - Private home/apt. with no home health services [facility] [place] 03/15/2023 08:41 am EST - 03/27/2023 12:30 pm EST Discharge - Discharged / Transferred to another [facility] - [facility] [place] 02/20/2024 05:09 pm EDT - 03/22/2024 04:32 pm EST Discharge - Discharged / Transferred to another [facility] [place] 03/28/2024 01:03 pm EST - 04/07/2024 11:48 pm EST Leave - Doctor's visit - Other [facility] [place] 04/13/2024 01:20 pm EST - 05/03/2024 10:15 am EST Discharge - Discharged / Transferred to another [facility] [place] 05/03/2024 08:17 pm EST - 05/12/2024 01:48 pm EST Reason For Referral lethargic Advance Directives Directive Description Verification FULL CODE Cardiopulmonary Resuscitation Immunizations Vaccine Date TB 1 Step Mantoux (PPD) 02/20/2024 10:40 am EDT TB 1 Step Mantoux (PPD) 03/04/2023 07:00 pm EST TB 2 Step Mantoux Skin Test 03/05/2024 0 9:00 pm EST TB 2 Step Mantoux Skin Test 03/05/2024 1 2:00 am EST TD Diphtheria/Tetanus 01/18/2022 12:00 a m EDT TDAP(tetanus/dipth/pertuss) 01/23/2011 1 2:00 am EDT COVID-19 Vaccine Dose 1 05/25/2020 12:00 am EST COVID-19 Vaccine Dose 2 06/22/2020 12:00 am EST COVID-19 Vaccine Additional Dose/Booster COVID-19 Vaccine Additional Dose/Booster 02/01/2022 12:00 am EDT Flu Vaccine Prior To Admission (historic al only) 02/26/2023 12:00 am EST Influenza Afluria Trivalent CV X 141 Social History Vital Signs Vital Sign Reading Time Taken painLevel 0 {score} 05/12/2024 12:04 pm EST painLevel 0 {score} 05/12/2024 04:39 am EST painLevel 0 {score} 05/11/2024 04:43 pm EST painLevel 0 {score} 05/11/2024 08:33 am EST painLevel 0 {score} 05/11/2024 07:53 am EST painLevel 0 {score} 05/11/2024 03:12 am EST painLevel 1 {score} 05/10/2024 09:38 pm EST painLevel 0 {score} 05/10/2024 07:22 pm EST painLevel 0 {score} 05/10/2024 10:01 am EST bloodSugar 130 mg/dL 05/12/2024 12:04 pm EST bloodSugar 218 mg/dL 05/12/2024 08:38 am EST bloodSugar 351 mg/dL 05/11/2024 04:41 pm EST bloodSugar 238 mg/dL 05/11/2024 12:23 pm EST bloodSugar 253 mg/dL 05/11/2024 07:53 am EST bloodSugar 233 mg/dL 05/10/2024 09:38 pm EST bloodSugar 233 mg/dL 05/10/2024 07:15 pm EST bloodSugar 256 mg/dL 05/10/2024 08:18 am EST bloodSugar 305 mg/dL 05/09/2024 08:52 pm EST bloodSugar 305 mg/dL 05/09/2024 08:51 pm EST weight 112 [lb_av] 05/12/2024 10:18 am EST oxygenSaturation 97 % 05/12/2024 08:3 8 am EST oxygenSaturation 95 % 05/11/2024 07:5 3 am EST oxygenSaturation 95 % 05/10/2024 09:3 8 pm EST oxygenSaturation 94 % 05/10/2024 08:1 8 am EST oxygenSaturation 95 % 05/09/2024 08:5 2 pm EST oxygenSaturation 95 % 05/09/2024 08:5 1 pm EST heartrate 66 /min 05/12/2024 08:38 am EST heartrate 72 /min 05/11/2024 07:53 am EST heartrate 70 /min 05/10/2024 09:38 pm EST heartrate 78 /min 05/10/2024 08:18 am EST heartrate 70 /min 05/09/2024 08:52 pm EST heartrate 70 /min 05/09/2024 08:51 pm EST temperature 98 [degF] 05/12/2024 08:38 am EST temperature 98.2 [degF] 05/11/2024 07:53 am EST temperature 98.1 [degF] 05/10/2024 09:38 pm EST temperature 97.8 [degF] 05/10/2024 08:18 am EST temperature 98.1 [degF] 05/09/2024 08:52 pm EST temperature 98.1 [degF] 05/09/2024 08:51 pm EST systolicValue 127 mm[Hg] 05/12/2024 08:38 am EST diastolicValue 60 mm[Hg] 05/12/2024 08:38 am EST systolicValue 143 mm[Hg] 05/11/2024 07:53 am EST diastolicValue 56 mm[Hg] 05/11/2024 07:53 am EST systolicValue 101 mm[Hg] 05/10/2024 09:38 pm EST diastolicValue 53 mm[Hg] 05/10/2024 09:38 pm EST systolicValue 124 mm[Hg] 05/10/2024 08:18 am EST diastolicValue 57 mm[Hg] 05/10/2024 08:18 am EST systolicValue 129 mm[Hg] 05/09/2024 08:52 pm EST diastolicValue 68 mm[Hg] 05/09/2024 08:52 pm EST systolicValue 129 mm[Hg] 05/09/2024 08:51 pm EST diastolicValue 68 mm[Hg] 05/09/2024 08:51 pm EST respirations 18 /min 05/12/2024 08:38 am EST respirations 18 /min 05/11/2024 07:53 am EST respirations 18 /min 05/10/2024 09:38 pm EST respirations 18 /min 05/10/2024 08:18 am EST respirations 18 /min 05/09/2024 08:52 pm EST respirations 18 /min 05/09/2024 08:51 pm EST
--- OUTSIDE RECORDS SUMMARY | 2024-05-27 20:21 | XMS_ITS | Encounter Summary ---
Author Organization [facility] Address [address] [place] [address] Care Team Providers Care Golf Course Patroller Name Role Phone Marita Wetzel DO Primary Care Provider [phone]- [phone] Encounter Details Date Type Department Care Team (Late st Contact Info) Description 04/28/2024 Lab Requisition [facility] - Main Lab [address] [facility] [place] [phone] Marily Gordillo MD [address] [place] [address] Chronic kidney disease, unspecified; Anemia, [...] unspecified documented in this encounter Care Teams Golf Course Patroller Relationship Specialty Start Date End Date Marita Wetzel DO [address] [place] [address] PCP - General 01/09/23 documented as of this encounter
--- OUTSIDE RECORDS SUMMARY | 2024-05-27 20:21 | XMS_ITS | Encounter Summary ---
Author Organization [facility] Address [address] [place] [address] Care Team Providers Care Sole Stainer Name Role Phone Marita Wetzel Primary Care Provider [phone]- [phone] Encounter Details Date Type Department Care Team (Late st Contact Info) Description 04/17/2024 Lab Requisition [facility] - Main Lab [address] [place] [phone] Marily Gordillo MD [address] [place] [phone] Chronic embolism and thrombosis of unspecified vein; [...] Date/Time Associated Diagnosis Comments TACROLIMUS LEVEL Routine 04/19/2024 6:21 AM EST Chronic embolism and thrombosis of unspecified vein Acute kidney failure, unspecified (CMS/HCC) COMPLETE BLOOD COUNT Routine 04/19/2024 6:21 AM EST Chronic embolism and thrombosis of unspecified vein Acute kidney failure, unspecified (CMS/HCC) RENAL FUNCTION PANEL Routine 04/19/2024 6:21 AM EST Chronic embolism and thrombosis of unspecified vein Acute kidney failure, unspecified (CMS/HCC) documented in this encounter Results * Tacrolimus level (04/19/2024 6:21 AM EST) Tacrolimus Level 8.4 5.0 - 20.0 ng/mL 04/22/2024 11:22 AM EST [facility] Comment: Additional Information: Toxic Level ?> [...] developed and the performance characteristics determined by [facility]. This confirmation testing has not been cleared or approved by the FDA. The laboratory is regulated under CLIA as qualified to perform high-complexity testing. This test is used for patient testing purposes. It should not be regarded as investigational or for research. Test performed at [facility], [address], [place], [place] ??[address] ? [phone] Ashtyn Leigh MD, PhD - Flooring Grader Blood Venous blood specimen / Unknown Venipuncture / Unknown 04/19/2024 6:21 AM EST 04/19/2024 8:33 AM EST Marily Gordillo MD LAB BLOOD ORDERABLES [facility] [address] [place] [address] * (ABNORMAL) Renal function panel (04/19/2024 6:21 AM EST) Sodium 144 133 - 145 mmol/L LAB CHEMISTRY METHOD 04/19/2024 9:42 AM [facility] Potassium 3.3(L) 3.5 - 5.5 mmol/L LAB CHEMISTRY METHOD 04/19/2024 9:42 AM [facility] Chloride 114(H) 96 - 110 mmol/L LAB CHEMISTRY METHOD 04/19/2024 9:42 AM [facility] CO2 22 21 - 32 mmol/L LAB CHEMISTRY METHOD 04/19/2024 9:42 AM [facility] Anion Gap 8 3 - 11 LAB CHEMISTRY METHOD 04/19/2024 9:42 AM [facility] Glucose 177(H) 70 - 100 mg/dL LAB CHEMISTRY METHOD 04/19/2024 9:42 AM [facility] BUN 42(H) 5 - 25 mg/dL LAB CHEMISTRY METHOD 04/19/2024 9:42 AM [facility] Creatinine 3.65(H) 0.50 - 1.10 mg/dL LAB CHEMISTRY METHOD 04/19/2024 9:42 AM [facility] eGFR 13(L) >=60 mL/min/1. 73m2 LAB CHEMISTRY METHOD 04/19/2024 9:42 AM [facility] Comment:Calculation based on the??Chronic Kidney Disease Epidemiology Collaboration (CKD-EPI) equation refit??without adjustment for race. BUN/Creatinine Ratio 11.5 LAB CHEMISTRY METHOD 04/19/2024 9:42 AM [facility] Albumin 2.0(L) 3.2 - 5.0 g/dL LAB CHEMISTRY METHOD 04/19/2024 9:42 AM [facility] Calcium 8.5 8.5 - 10.5 mg/dL LAB CHEMISTRY METHOD 04/19/2024 9:42 AM [facility] Phosphorus 2.6 2.5 - 4.5 mg/dL LAB CHEMISTRY METHOD 04/19/2024 9:42 AM [facility] Blood Venous blood specimen / Unknown Venipuncture / Unknown 04/19/2024 6:21 AM EST 04/19/2024 8:33 AM EST Marily Gordillo MD LAB BLOOD ORDERABLES [facility] [address] [place] [address], * (ABNORMAL) Complete blood count (04/19/2024 6:21 AM EST) WBC 12.0(H) 4.8 - 10.8 K/mcL LAB HEMETOLOGY METHOD 04/19/2024 9:26 AM [facility] RBC 2.80(L) 3.80 - 4.80 M/[facility] LAB HEMETOLOGY METHOD 04/19/2024 9:26 AM [facility] Hemoglobin 7.6(L) 11.5 - 16.0 g/dL LAB HEMETOLOGY METHOD 04/19/2024 9:26 AM [facility] Hematocrit 27.3(L) 35.0 - 47.0 % LAB HEMETOLOGY METHOD 04/19/2024 9:26 AM [facility] MCV 98.2(H) 79.0 - 98.0 FL LAB HEMETOLOGY METHOD 04/19/2024 9:26 AM [facility] MCH 27.3 27.0 - 32.0 pcg LAB HEMETOLOGY METHOD 04/19/2024 9:26 AM [facility] MCHC 27.8(L) 32.0 - 37.0 g/dL LAB HEMETOLOGY METHOD 04/19/2024 9:26 AM EST [facility] RDW 16.6(H) 11.0 - 15.0 % LAB HEMETOLOGY METHOD 04/19/2024 9:26 AM [facility] Platelets 230 130 - 400 K/mcL LAB HEMETOLOGY METHOD 04/19/2024 9:26 AM EST [facility] MPV 10.9 7.0 - 11.0 FL LAB HEMETOLOGY METHOD 04/19/2024 9:26 AM EST [facility] NRBC 0.0 <1.0 % LAB HEMETOLOGY METHOD 04/19/2024 9:26 AM [facility] NRBC Absolute 0.00 <0.10 K/mcL LAB HEMETOLOGY METHOD 04/19/2024 9:26 AM [facility] Blood Venous blood specimen / Unknown Venipuncture / Unknown 04/19/2024 6:21 AM EST 04/19/2024 8:33 AM EST Marily Gordillo MD LAB BLOOD ORDERABLES [facility] [address] [place] [address], documented in this encounter Visit Diagnoses Diagnosis Chronic embolism and thrombosis of unspecified vein Acute kidney failure, unspecified (CMS/HCC) Acute kidney failure, unspecified documented in this encounter Care Teams Sole Stainer Relationship Specialty Start Date End Date Marita Wetzel DO [address], [place] PCP - General 01/09/23 documented as of this encounter
--- OUTSIDE RECORDS SUMMARY | 2024-05-27 20:21 | XMS_ITS | Encounter Summary ---
Author Organization [facility] Address [address] [place] [address] Phone Care Team Providers Care Camp Head Counselor Name Role Phone Marita Wetzel DO Primary Care Provider Unava ilable Encounter Details Date Type Department Care Team (Late st Contact Info) Description 01/21/2024 Documentation Only [facility] [address] [place] [phone] Pauline Aguayo [address] [place] [phone] Social History Tobacco Use Types Packs/Day Years [...] Support [facility] [address] [place] [address] 06/29/2024 7:30 AM EDT Scheduled Only [facility] [place] [address] [place] [phone] documented as of this encounter Visit Diagnoses Not on filedocumented in this encounter Care Teams Camp Head Counselor Relationship Specialty Start Date End Date Marita Wetzel DO [address] [place] [address] PCP - General Family Medicine 11/14/22 documented as of this encounter
--- OUTSIDE RECORDS SUMMARY | 2024-05-27 20:21 | XMS_ITS | Encounter Summary ---
Author Organization [facility] Address [address] [place] [address] Care Team Providers Care Vocational School Teacher Name Role Phone Marita Wetzel Primary Care Provider [phone]- [phone] Encounter Details Date Type Department Care Team (Late st Contact Info) Description 05/07/2024 Lab Requisition [facility] - Main Lab [address] [place] [phone] Marily Gordillo MD [address] [place] [address] Chronic embolism and thrombosis of unspecified vein; [...] Date/Time Associated Diagnosis Comments TACROLIMUS LEVEL Routine 05/10/2024 5:50 AM EST Chronic embolism and thrombosis of unspecified vein Acute kidney failure, unspecified (CMS/HCC) RENAL FUNCTION PANEL Routine 05/10/2024 5:50 AM EST Chronic embolism and thrombosis of unspecified vein Acute kidney failure, unspecified (CMS/HCC) documented in this encounter Results * (ABNORMAL) Renal function panel (05/10/2024 5:50 AM EST) Sodium 135 133 - 145 mmol/L LAB CHEMISTRY METHOD 05/10/2024 11:45 AM EST [facility] Potassium 3.8 3.5 - 5.5 mmol/L LAB CHEMISTRY METHOD 05/10/2024 11:45 AM [facility] Chloride 96 96 - 110 mmol/L LAB CHEMISTRY METHOD 05/10/2024 11:45 AM [facility] CO2 28 21 - 32 mmol/L LAB CHEMISTRY METHOD 05/10/2024 11:45 AM [facility] Anion Gap 11 3 - 11 LAB CHEMISTRY METHOD 05/10/2024 11:45 AM [facility] Glucose 215(H) 70 - 100 mg/dL LAB CHEMISTRY METHOD 05/10/2024 11:45 AM [facility] BUN 45(H) 5 - 25 mg/dL LAB CHEMISTRY METHOD 05/10/2024 11:45 AM [facility] Creatinine 3.47(H) 0.50 - 1.10 mg/dL LAB CHEMISTRY METHOD 05/10/2024 11:45 AM [facility] eGFR 14(L) >=60 mL/min/1. 73m2 LAB CHEMISTRY METHOD 05/10/2024 11:45 AM [facility] Comment:Calculation based on the??Chronic Kidney Disease Epidemiology Collaboration (CKD-EPI) equation refit??without adjustment for race. BUN/Creatinine Ratio 13.0 LAB CHEMISTRY METHOD 05/10/2024 11:45 AM [facility] Albumin 1.7(L) 3.2 - 5.0 g/dL LAB CHEMISTRY METHOD 05/10/2024 11:45 AM [facility] Calcium 8.4(L) 8.5 - 10.5 mg/dL LAB CHEMISTRY METHOD 05/10/2024 11:45 AM [facility] Phosphorus 2.1(L) 2.5 - 4.5 mg/dL LAB CHEMISTRY METHOD 05/10/2024 11:45 AM [facility] Blood Venous blood specimen / Unknown Venipuncture / Unknown 05/10/2024 5:50 AM EST 05/10/2024 9:58 AM EST Marily Gordillo MD LAB BLOOD ORDERABLES [facility] [address] [place] [address], * Tacrolimus level (05/10/2024 5:50 AM EST) Tacrolimus Level 7.1 5.0 - 20.0 ng/mL 05/13/2024 2:01 PM EST [facility] Comment: Additional Information: [...] developed and the performance characteristics determined by [facility]. This confirmation testing has not been cleared or approved by the FDA. The laboratory is regulated under CLIA as qualified to perform high-complexity testing. This test is used for patient testing purposes. It should not be regarded as investigational or for research. Test performed at [facility], [address], [place], [place] ??[address] ? [phone] Ashtyn Leigh MD, PhD - Varnish Supervisor Blood Venous blood specimen / Unknown Venipuncture / Unknown 05/10/2024 5:50 AM EST 05/10/2024 9:58 AM EST Marily Gordillo MD LAB BLOOD ORDERABLES [facility] [address] [place] [address] documented in this encounter Visit Diagnoses Diagnosis Chronic embolism and thrombosis of unspecified vein Acute kidney failure, unspecified (CMS/HCC) Acute kidney failure, unspecified documented in this encounter Care Teams Vocational School Teacher Relationship Specialty Start Date End Date Marita Wetzel DO [address] [place] [address] PCP - General 01/09/23 documented as of this encounter
--- OUTSIDE RECORDS SUMMARY | 2024-05-27 20:21 | XMS_ITS | Encounter Summary ---
Author Organization [facility] Address [address] [place] [address] Care Team Providers Care Sweet Dough Mixer Name Role Phone Marita Wetzel Primary Care Provider +1- [phone] Encounter Details Date Type Department Care Team (Late st Contact Info) Description 04/20/2024 Lab Requisition [facility] - Main Lab [address] [place] [phone] Marily Gordillo MD [address] [place] [address] Chronic kidney disease, unspecified; Anemia, [...] Procedure Name Priority Date/Time Associated Diagnosis Comments COMPLETE BLOOD COUNT Routine 04/22/2024 7:09 AM EST Chronic kidney disease, unspecified Anemia, unspecified COMPREHENSIVE METABOLIC PANEL Routine 04/22/2024 7:09 AM EST Chronic kidney disease, unspecified Anemia, unspecified documented in this encounter Results * (ABNORMAL) Comprehensive metabolic panel (04/22/2024 7:09 AM EST) Sodium 143 133 - 145 mmol/L LAB CHEMISTRY METHOD 04/22/2024 11:50 AM EST [facility] Potassium 3.5 3.5 - 5.5 mmol/L LAB CHEMISTRY METHOD 04/22/2024 11:50 AM EST [facility] Chloride 112(H) 96 - 110 mmol/L LAB CHEMISTRY METHOD 04/22/2024 11:50 AM [facility] CO2 23 21 - 32 mmol/L LAB CHEMISTRY METHOD 04/22/2024 11:50 AM [facility] Anion Gap 8 3 - 11 LAB CHEMISTRY METHOD 04/22/2024 11:50 AM [facility] Glucose 135(H) 70 - 100 mg/dL LAB CHEMISTRY METHOD 04/22/2024 11:50 AM [facility] BUN 43(H) 5 - 25 mg/dL LAB CHEMISTRY METHOD 04/22/2024 11:50 AM [facility] Creatinine 3.79(H) 0.50 - 1.10 mg/dL LAB CHEMISTRY METHOD 04/22/2024 11:50 AM [facility] eGFR 13(L) >=60 mL/min/1. 73m2 LAB CHEMISTRY METHOD 04/22/2024 11:50 AM [facility] Comment:Calculation based on the??Chronic Kidney Disease Epidemiology Collaboration (CKD-EPI) equation refit??without adjustment for race. BUN/Creatinine Ratio 11.3 LAB CHEMISTRY METHOD 04/22/2024 11:50 AM [facility] Calcium 8.6 8.5 - 10.5 mg/dL LAB CHEMISTRY METHOD 04/22/2024 11:50 AM [facility] AST (SGOT) 9(L) 10 - 42 unit/L LAB CHEMISTRY METHOD 04/22/2024 11:50 AM [facility] ALT (SGPT) 9(L) 10 - 60 unit/L LAB CHEMISTRY METHOD 04/22/2024 11:50 AM [facility] Alkaline Phosphatase 59 42 - 121 unit/L LAB CHEMISTRY METHOD 04/22/2024 11:50 AM [facility] Total Protein 5.8(L) 6.0 - 8.0 g/dL LAB CHEMISTRY METHOD 04/22/2024 11:50 AM [facility] Albumin 2.0(L) 3.2 - 5.0 g/dL LAB CHEMISTRY METHOD 04/22/2024 11:50 AM [facility] Total Bilirubin 0.3 0.0 - 1.4 mg/dL LAB CHEMISTRY METHOD 04/22/2024 11:50 AM [facility] Blood Venous blood specimen / Unknown Venipuncture / Unknown 04/22/2024 7:09 AM EST 04/22/2024 9:42 AM EST Marily Gordillo MD LAB BLOOD ORDERABLES [facility] [address] [place] [address], * (ABNORMAL) Complete blood count (04/22/2024 7:09 AM EST) WBC 8.2 4.8 - 10.8 K/mcL LAB HEMETOLOGY METHOD 04/22/2024 10:44 AM [facility] RBC 2.80(L) 3.80 - 4.80 M/mcL LAB HEMETOLOGY METHOD 04/22/2024 10:44 AM [facility] Hemoglobin 7.8(L) 11.5 - 16.0 g/dL LAB HEMETOLOGY METHOD 04/22/2024 10:44 AM [facility] Hematocrit 27.7(L) 35.0 - 47.0 % LAB HEMETOLOGY METHOD 04/22/2024 10:44 AM [facility] MCV 97.5 79.0 - 98.0 FL LAB HEMETOLOGY METHOD 04/22/2024 10:44 AM [facility] MCH 27.5 27.0 - 32.0 pcg LAB HEMETOLOGY METHOD 04/22/2024 10:44 AM [facility] MCHC 28.2(L) 32.0 - 37.0 g/dL LAB HEMETOLOGY METHOD 04/22/2024 10:44 AM EST [facility] RDW 16.5(H) 11.0 - 15.0 % LAB HEMETOLOGY METHOD 04/22/2024 10:44 AM [facility] Platelets 189 130 - 400 K/mcL LAB HEMETOLOGY METHOD 04/22/2024 10:44 AM [facility] MPV 10.7 7.0 - 11.0 FL LAB HEMETOLOGY METHOD 04/22/2024 10:44 AM [facility] NRBC 0.0 <1.0 % LAB HEMETOLOGY METHOD 04/22/2024 10:44 AM [facility] NRBC Absolute 0.00 <0.10 K/mcL LAB HEMETOLOGY METHOD 04/22/2024 10:44 AM [facility] Blood Venous blood specimen / Unknown Venipuncture / Unknown 04/22/2024 7:09 AM EST 04/22/2024 9:43 AM EST Marily Gordillo MD LAB BLOOD ORDERABLES [facility] [address] [place] [address], documented in this encounter Visit Diagnoses Diagnosis Chronic kidney disease, unspecified Anemia, unspecified documented in this encounter Care Teams Sweet Dough Mixer Relationship Specialty Start Date End Date Marita Wetzel DO [address] [place] [address] PCP - General 01/09/23 documented as of this encounter
--- OUTSIDE RECORDS SUMMARY | 2024-05-27 20:21 | XMS_ITS | Encounter Summary ---
Author Organization [facility], Address [address] [place] [address] Phone Care Team Providers Care Carburetor Repairer Name Role Phone Marita Wetzel DO Primary Care Provider Unava ilable Reason for Visit * Reason Onset Date Comments attempted to schedule port flush 05/25/2024 Encounter Details Date Type Department Care Team (Late Contact Info) Description 05/25/2024 Telephone [facility] [address] [phone] Hazel Zepeda [address] [place] [address] attempted to schedule port flush Social History Tobacco Use Types Packs/Day Years [...] on file documented as of this encounter Miscellaneous Notes * Telephone Encounter - Hazel Zepeda - 05/25/2024 9:21 AM EST Left vm pt's to call back to schedule pt's port flush around 06/10/24. documented in this encounter Plan of Treatment Upcoming Encounters Date Type Department Care Team (Late Contact Info) Description 06/10/2024 11:45 PM EST Clinical Support [facility] [address] [place] [address] 06/29/2024 7:30 AM EDT Scheduled Only [facility] [address] [place] [address] documented as of this encounter Visit Diagnoses Not on filedocumented in this encounter Care Teams Carburetor Repairer Relationship Specialty Start Date End Date Marita Wetzel DO [address] [place] [address] PCP - General Family Medicine 11/14/22 documented as of this encounter
--- OUTSIDE RECORDS SUMMARY | 2024-05-27 20:21 | XMS_ITS | Encounter Summary ---
Author Organization [facility] [place], Address [address] [place] [address] Phone Care Team Providers Care Rural Route Mail Carrier Name Role Phone Marita Wetzel DO Primary Care Provider Unava ilable Encounter Details Date Type Department Care Team (Late st Contact Info) Description 12/06/2022 Documentation Only [facility] [address] [place] [phone] [place], [place] [address] [place] [phone] Social History Tobacco Use Types Packs/Day Years [...] Support [facility] - [facility] [address] [place] [phone] 06/29/2024 7:30 AM EDT Scheduled Only [facility] [address] [place] [phone] documented as of this encounter Visit Diagnoses Not on filedocumented in this encounter Care Teams Rural Route Mail Carrier Relationship Specialty Start Date End Date Marita Wetzel DO [address] [place] [address] PCP - General Family Medicine 11/14/22 documented as of this encounter
--- OUTSIDE RECORDS SUMMARY | 2024-05-27 20:21 | XMS_ITS | Encounter Summary ---
Author Organization [facility] Address [address] [place] [address] Care Team Providers Care Otr Owner Operator Truck Driver Name Role Phone Marita Wetzel Primary Care Provider +1- [phone] Encounter Details Date Type Department Care Team (Late st Contact Info) Description 04/30/2024 Lab Requisition [facility] - Main Lab [address] [place] [phone] Marily Gordillo MD [address] [place] [phone] Anemia, unspecified; Chronic embolism and thrombosis of unspecified vein; [...] Procedure Name Priority Date/Time Associated Diagnosis Comments IRON Routine 05/03/2024 6:09 AM EST Anemia, unspecified Chronic embolism and thrombosis of unspecified vein Acute kidney failure, unspecified (CMS/HCC) FERRITIN Routine 05/03/2024 6:09 AM EST Anemia, unspecified Chronic embolism and thrombosis of unspecified vein Acute kidney failure, unspecified (CMS/HCC) documented in this encounter Results * (ABNORMAL) Iron (05/03/2024 6:09 AM EST) Iron 35(L) 40 - 150 mcg/dL LAB CHEMISTRY METHOD 05/03/2024 10:59 AM EST [facility] Blood Venous blood specimen / Unknown Venipuncture / Unknown 05/03/2024 6:09 AM EST 05/03/2024 9:29 AM EST Marily Gordillo MD LAB BLOOD ORDERABLES Performing Organization Address [facility]/ZIP Co de Phone Number [facility] [address] [place] [address], [place] [phone] * (ABNORMAL) Ferritin (05/03/2024 6:09 AM EST) Ferritin 2,737(H) 8 - 252 ng/mL LAB CHEMISTRY METHOD 05/03/2024 10:59 AM EST [facility] Blood Venous blood specimen / Unknown Venipuncture / Unknown 05/03/2024 6:09 AM EST 05/03/2024 9:29 AM EST Marily Gordillo MD LAB BLOOD ORDERABLES Performing Organization Address [facility] de Phone Number [facility] [address] [place] [address], [place] [phone] documented in this encounter Visit Diagnoses Diagnosis Anemia, unspecified Chronic embolism and thrombosis of unspecified vein Acute kidney failure, unspecified (CMS/HCC) Acute kidney failure, unspecified documented in this encounter Care Teams Otr Owner Operator Truck Driver Relationship Specialty Start Date End Date Marita Wetzel DO [address] [place] [address] PCP - General 01/09/23 documented as of this encounter
--- OUTSIDE RECORDS SUMMARY | 2024-05-27 20:21 | XMS_ITS | Continuity of Care Document ---
Author Name [facility] Organization [facility] Care Team Providers Care Slot Supervisor Name Role Phone [facility] Unavailable Unavailable Problems Combined list of problems from Department of Defense and Veterans Affairs facilities. It does not include entries that were removed or entered in error. Problem Status Onset Date Problem Type Date of Resolution Comments Source Diagnosis: ICD-10-CM Z71.0 Prsn encntr hlth serv to consult on behalf of another person Active Diagnosis [facility] Medications Combined list of outpatient medications from Department of Defense and Veterans Affairs facilities.Medications provided include 1) outpatient medications from the last 15 months, and 2) patient-reported medications. Medication Details Route Status Patient Instructions Prescription Expires Prescription Number Last Dispense Date Ordering Provider Order Date Order Qty Source AMLODIPINE BESYLATE (amlodipine besylate), 10 MG, TABLET, ORAL, LUPIN PHARMACEU, 1000 ea. BOTTLE Cancele d [id number] : 2023 0 Pharmac y Data Transac tion Service Facilit y AMLODIPINE BESYLATE (amlodipine besylate), 10 MG, TABLET, ORAL, LUPIN PHARMACEU, 1000 ea. BOTTLE Active [id number] 3 2022 30 Pharmac y Data Transac tion Service Facilit y AMLODIPINE BESYLATE (amlodipine besylate), 10 MG, TABLET, ORAL, LUPIN PHARMACEU, 1000 ea. BOTTLE Active [id number] 4 2023 30 Pharmac y Data Transac tion Service Facilit y AMLODIPINE BESYLATE (amlodipine besylate), 10 MG, TABLET, ORAL, LUPIN PHARMACEU, 1000 ea. BOTTLE Active [id number] 4 2023 30 Pharmac y Data Transac tion Service Facilit y AMLODIPINE BESYLATE (amlodipine besylate), 10 MG, TABLET, ORAL, LUPIN PHARMACEU, 1000 ea. BOTTLE Active [id number] 4 2023 30 Pharmac y Data Transac tion Service Facilit y AMLODIPINE BESYLATE (amlodipine besylate), 10 MG, TABLET, ORAL, LUPIN PHARMACEU, 1000 ea. BOTTLE Active [id number] 4 2023 30 Pharmac y Data Transac tion Service Facilit y CARVEDILOL (carvedilol ), 25 MG, TABLET, ORAL, ADVAGEN PHARMA, 500 ea. BOTTLE Cancele d [id number] : 2023 0 Pharmac y Data Transac tion Service Facilit y CARVEDILOL (carvedilol ), 25 MG, TABLET, ORAL, ADVAGEN PHARMA, 500 ea. BOTTLE Active [id number] 3 2022 60 Pharmac y Data Transac tion Service Facilit y CARVEDILOL (carvedilol ), 25 MG, TABLET, ORAL, ADVAGEN PHARMA, 500 ea. BOTTLE Active [id number] 4 2023 60 Pharmac y Data Transac tion Service Facilit y CARVEDILOL (carvedilol ), 25 MG, TABLET, ORAL, ADVAGEN PHARMA, 500 ea. BOTTLE Active [id number] 4 2023 60 Pharmac y Data Transac tion Service Facilit y CARVEDILOL (carvedilol ), 25 MG, TABLET, ORAL, ADVAGEN PHARMA, 500 ea. BOTTLE Active [id number] 4 2023 60 Pharmac y Data Transac tion Service Facilit y CARVEDILOL (carvedilol ), 25 MG, TABLET, ORAL, ADVAGEN PHARMA, 500 ea. BOTTLE Active [id number] 4 2023 60 Pharmac y Data Transac tion Service Facilit y CLONIDINE HCL (clonidine HCl), 0.3 MG, TABLET, ORAL, [employer], 100 ea. BOTTLE Active [id number] 4 2023 60 Pharmac y Data Transac tion Service Facilit y ENVARSUS XR (tacrolimus ), 1 MG, TAB ER 24H, ORAL, VELOXIS PHARMAC, 30 ea. BOTTLE Cancele d [id number] : 2023 0 Pharmac y Data Transac tion Service Facilit y ENVARSUS XR (tacrolimus ), 1 MG, TAB ER 24H, ORAL, VELOXIS PHARMAC, 30 ea. BOTTLE Active [id number] 4 2023 330 Pharmac y Data Transac tion Service Facilit y ENVARSUS XR (tacrolimus ), 1 MG, TAB ER 24H, ORAL, VELOXIS PHARMAC, 30 ea. BOTTLE Active [id number] 4 2023 90 Pharmac y Data Transac tion Service Facilit y FLUCONAZOLE (fluconazol e), 150 MG, TABLET, ORAL, ZYDUS PHARMACEU, 12 ea. BLIST PACK Active [id number] 2023 1 Pharmac y Data Transac tion Service Facilit y FOLIC ACID (folic acid), 1 MG, TABLET, ORAL, LEADING PHARMA, 1000 ea. BOTTLE Cancele d [id number] : 2023 0 Pharmac y Data Transac tion Service Facilit y FOLIC ACID (folic acid), 1 MG, TABLET, ORAL, LEADING PHARMA, 1000 ea. BOTTLE Active [id number] 3 2022 30 Pharmac y Data Transac tion Service Facilit y FOLIC ACID (folic acid), 1 MG, TABLET, ORAL, LEADING PHARMA, 1000 ea. BOTTLE Active [id number] 2023 30 Pharmac y Data Transac tion Service Facilit y FOLIC ACID (folic acid), 1 MG, TABLET, ORAL, LEADING PHARMA, 1000 ea. BOTTLE Active [id number] 4 2023 30 Pharmac y Data Transac tion Service Facilit y FOLIC ACID (folic acid), 1 MG, TABLET, ORAL, LEADING PHARMA, 1000 ea. BOTTLE Active [id number] 2023 30 Pharmac y Data Transac tion Service Facilit y FOSFOMYCIN TROMETHAMIN E (fosfomycin tromethamin e), 3 G, PACKET, ORAL, [employer] 1 ea. PACKET Cancele d [id number] : 2022 0 Pharmac y Data Transac tion Service Facilit y HUMALOG (INSULIN LISPRO), 100 U/ML, CARTRIDGE, SUB-Q, [employer] 3 ml CARTRIDGE Cancele d [id number] : 2022 0 Pharmac y Data Transac tion Service Facilit y HYDRALAZINE HCL (hydralazin e HCl), 25 MG, TABLET, ORAL, AVET PHARMACEUT, 100 ea. BOTTLE Active [id number] 3 2022 90 Pharmac y Data Transac tion Service Facilit y HYDRALAZINE HCL (hydralazin e HCl), 25 MG, TABLET, ORAL, AVET PHARMACEUT, 100 ea. BOTTLE Active [id number] 4 2023 90 Pharmac y Data Transac tion Service Facilit y HYDROXYZINE PAMOATE (hydroxyzin e pamoate), 25 MG, CAPSULE, ORAL, AMNEAL PHARMACE, 100 ea. BOTTLE Active [id number] 2023 30 Pharmac y Data Transac tion Service Facilit y INSULIN GLARGINE-YF GN (insulin glargine-yf gn), 100/ML (3), INSULN PEN, SUBCUT, [employer], 3 ml SYRINGE Cancele d [id number] : 2023 0 Pharmac y Data Transac tion Service Facilit y INSULIN LISPRO KWIKPEN U-100 (insulin lispro), 100/ML, INSULN PEN, SUBCUT, [employer] 3 ml SYRINGE Cancele d [id number] : 2023 0 Pharmac y Data Transac tion Service Facilit y INSULIN LISPRO KWIKPEN U-100 (insulin lispro), 100/ML, INSULN PEN, SUBCUT, [employer] 3 ml SYRINGE Cancele d [id number] : 2023 0 Pharmac y Data Transac tion Service Facilit y INSULIN LISPRO KWIKPEN U-100 (insulin lispro), 100/ML, INSULN PEN, SUBCUT, [employer] 3 ml SYRINGE Active [id number] 4 2023 15 Pharmac y Data Transac tion Service Facilit y INSULIN LISPRO KWIKPEN U-100 (insulin lispro), 100/ML, INSULN PEN, SUBCUT, [employer] 3 ml SYRINGE Active [id number] 2023 15 Pharmac y Data Transac tion Service Facilit y LANSOPRAZOL E (lansoprazo le), 30 MG, CAPSULE DR, ORAL, [employer], 30 ea. BOTTLE Active [id number] 3 2022 60 Pharmac y Data Transac tion Service Facilit y LANSOPRAZOL E (lansoprazo le), 30 MG, CAPSULE DR, ORAL, [employer], 30 ea. BOTTLE Active [id number] 2023 60 Pharmac y Data Transac tion Service Facilit y LANTUS (INSULIN GLARGINE,[facility].REC.ANLOG ), 100 U/ML, VIAL, SUB-Q, AVENTIS PHARM, 10 ml VIAL Active [id number] 4 2023 10 Pharmac y Data Transac tion Service Facilit y LANTUS (INSULIN GLARGINE,[facility].REC.ANLOG ), 100 U/ML, VIAL, SUB-Q, AVENTIS PHARM, 10 ml VIAL Cancele d [id number] : 2023 0 Pharmac y Data Transac tion Service Facilit y LANTUS SOLOSTAR (INSULIN GLARGINE,[facility].REC.ANLOG ), 100/ML (3), INSULN PEN, SUB-Q, SANOFI-AVEN TIS, 3 ml SYRINGE Cancele d [id number] : 2023 0 Pharmac y Data Transac tion Service Facilit y LANTUS SOLOSTAR (INSULIN GLARGINE,[facility].REC.ANLOG ), 100/ML (3), INSULN PEN, SUB-Q, SANOFI-AVEN TIS, 3 ml SYRINGE Cancele d [id number] : 2023 0 Pharmac y Data Transac tion Service Facilit y LOKELMA (sodium zirconium cyclosilica te), 10 G, POWD PACK, ORAL, ASTRAZENECA , 30 ea. PACKET Active [id number] 4 2023 2 Pharmac y Data Transac tion Service Facilit y LOKELMA (sodium zirconium cyclosilica te), 10 G, POWD PACK, ORAL, ASTRAZENECA , 30 ea. PACKET Cancele d [id number] : 2023 0 Pharmac y Data Transac tion Service Facilit y LOKELMA (sodium zirconium cyclosilica te), 10 G, POWD PACK, ORAL, ASTRAZENECA , 30 ea. PACKET Cancele d [id number] : 2023 0 Pharmac y Data Transac tion Service Facilit y MYCOPHENOLI C ACID (mycophenol ate sodium), 360 MG, TABLET DR, ORAL, [employer], 120 ea. BOTTLE Active [id number] 4 2023 120 Pharmac y Data Transac tion Service Facilit y MYCOPHENOLI C ACID (mycophenol ate sodium), 360 MG, TABLET DR, ORAL, ADVAGEN PHARMA, 120 ea. BOTTLE Active [id number] 4 2023 180 Pharmac y Data Transac tion Service Facilit y PANTOPRAZOL E SODIUM (PANTOPRAZO LE SODIUM), 40 MG, TABLET DR, ORAL, MYLAN, 1000 ea. BOTTLE Cancele d [id number] : 2023 0 Pharmac y Data Transac tion Service Facilit y PANTOPRAZOL E SODIUM (PANTOPRAZO LE SODIUM), 40 MG, TABLET DR, ORAL, MYLAN, 1000 ea. BOTTLE Active [id number] 2023 30 Pharmac y Data Transac tion Service Facilit y PANTOPRAZOL E SODIUM (PANTOPRAZO LE SODIUM), 40 MG, TABLET DR, ORAL, MYLAN, 1000 ea. BOTTLE Active [id number] 2023 30 Pharmac y Data Transac tion Service Facilit y PANTOPRAZOL E SODIUM (PANTOPRAZO LE SODIUM), 40 MG, TABLET DR, ORAL, MYLAN, 1000 ea. BOTTLE Active [id number] 2023 30 Pharmac y Data Transac tion Service Facilit y PREDNISONE (prednisone ), 10 MG, TABLET, ORAL, MYLAN, 1000 ea. BOTTLE Active [id number] 2023 42 Pharmac y Data Transac tion Service Facilit y PREDNISONE (prednisone ), 10 MG, TABLET, ORAL, NOVITIUM/AN I PH, 1000 ea. BOTTLE Cancele d [id number] : 2023 0 Pharmac y Data Transac tion Service Facilit y PREDNISONE (prednisone ), 2.5 MG, TABLET, ORAL, STRIDES PHARMA, 100 ea. BOTTLE Active [id number] 4 2023 90 Pharmac y Data Transac tion Service Facilit y PREDNISONE (prednisone ), 5 MG, TABLET, ORAL, MYLAN, 1000 ea. BOTTLE Cancele d [id number] : 2023 0 Pharmac y Data Transac tion Service Facilit y PREDNISONE (prednisone ), 5 MG, TABLET, ORAL, MYLAN, 1000 ea. BOTTLE Active [id number] 2023 24 Pharmac y Data Transac tion Service Facilit y PREDNISONE (prednisone ), 5 MG, TABLET, ORAL, MYLAN, 1000 ea. BOTTLE Active [id number] 2023 45 Pharmac y Data Transac tion Service Facilit y PREDNISONE (prednisone ), 5 MG, TABLET, ORAL, MYLAN, 1000 ea. BOTTLE Active [id number] 2023 25 Pharmac y Data Transac tion Service Facilit y PREDNISONE (prednisone ), 5 MG, TABLET, ORAL, MYLAN, 1000 ea. BOTTLE Active [id number] 2023 45 Pharmac y Data Transac tion Service Facilit y PREDNISONE (prednisone ), 5 MG, TABLET, ORAL, MYLAN, 1000 ea. BOTTLE Active [id number] 4 2023 45 Pharmac y Data Transac tion Service Facilit y PROCRIT (EPOETIN ELSA), 14480 U/ML, VIAL, INJECTION, ORTHO BIOTECH, 1 ml VIAL Cancele d [id number] : 2023 0 Pharmac y Data Transac tion Service Facilit y PROCRIT (EPOETIN ELSA), 17453 U/ML, VIAL, INJECTION, ORTHO BIOTECH, 1 ml VIAL Cancele d [id number] 4 [id number] : 2023 0 Pharmac y Data Transac tion Service Facilit y PROCRIT (EPOETIN ELSA), 71622 U/ML, VIAL, INJECTION, ORTHO BIOTECH, 1 ml VIAL Cancele d [id number] : 2023 0 Pharmac y Data Transac tion Service Facilit y PROCRIT (EPOETIN ELSA), 08731 U/ML, VIAL, INJECTION, ORTHO BIOTECH, 1 ml VIAL Active [id number] 4 2023 8 Pharmac y Data Transac tion Service Facilit y PROCRIT (EPOETIN ELSA), 75237 U/ML, VIAL, INJECTION, ORTHO BIOTECH, 1 ml VIAL Active [id number] 4 2023 8 Pharmac y Data Transac tion Service Facilit y PROCRIT (EPOETIN ELSA), 08221 U/ML, VIAL, INJECTION, ORTHO BIOTECH, 1 ml VIAL Cancele d [id number] 4 [id number] : 2023 0 Pharmac y Data Transac tion Service Facilit y SERTRALINE HCL (sertraline HCl), 25 MG, TABLET, ORAL, [email or web address] 90 ea. BOTTLE Active [id number] 4 2023 30 Pharmac y Data Transac tion Service Facilit y SERTRALINE HCL (sertraline HCl), 25 MG, TABLET, ORAL, [email or web address] 90 ea. BOTTLE Active [id number] 4 2023 30 Pharmac y Data Transac tion Service Facilit y SERTRALINE HCL (sertraline HCl), 25 MG, TABLET, ORAL, [email or web address] 90 ea. BOTTLE Active [id number] 4 2023 30 Pharmac y Data Transac tion Service Facilit y SODIUM POLYSTYRENE SULFONATE (sodium polystyrene sulfonate), POWDER, ORAL, SUNRISE PHARMAC, 15 g BOTTLE Active [id number] 4 2023 465 Pharmac y Data Transac tion Service Facilit y SUCRALFATE (sucralfate ), 1 G, TABLET, ORAL, [employer], 90 ea. BOTTLE Active [id number] 4 2023 120 Pharmac y Data Transac tion Service Facilit y SUCRALFATE (SUCRALFATE ), 1G, TABLET, ORAL, [employer], 100 ea. BOTTLE Cancele d [id number] : 2023 0 Pharmac y Data Transac tion Service Facilit y SULFAMETHOX AZOLE-TRIME THOPRIM (SULFAMETHO XAZOLE/TRIM ETHOPRIM), 400MG-80MG, TABLET, ORAL, AUROBINDO PHARM, 100 ea. BOTTLE Active [id number] 4 2023 14 Pharmac y Data Transac tion Service Facilit y Encounters Combined list of: 1) Encounters from Department of Veterans Affairs facilities going backup to the last 18 months, not all [facility] inpatient encounters are included; 2) Encounters from the Department of Defense facilities going backup to 280 months. Location Location Details Encounter Type Encounter Number Reason For Visit Attending Provider ADM Date DC Date Status Disposition Source [facility] PRO PHONE CALL 5-10 MIN [id number] Diagnos is: ICD-10- CM Z71.0 Prsn encntr hlth serv to consult on behalf of another person KELSEY, TH E 12/27 [facility] Outpatient Encounter [id number] 01/09 [facility] HC PRO PHONE CALL 5-10 MIN [id number] Diagnos is: ICD-10- CM Z71.0 Prsn encntr hlth serv to consult on behalf of another person KELSEY,RU TH E 01/09 [facility] [place] [facility] Outpatient Encounter [id number] 01/13 [facility] En[facility] [id number] 01/15 [facility] PRO PHONE CALL 5-10 MIN [id number] Diagnos is: ICD-10- CM Z71.0 Prsn encntr hlth serv to consult on behalf of another person [facility] [place],RU TH E 01/15 [facility] PRO PHONE CALL 5-10 MIN [id number] Diagnos is: ICD-10- CM Z71.0 Prsn encntr hlth serv to consult on behalf of another person [facility] [place], [facility] E 01[facility]21 [facility] PRO PHONE CALL 5-10 MIN [id number] Diagnos is: ICD-10- CM Z71.0 Prsn encntr hlth serv to consult on behalf of another person [facility] [place] E 02/05 [facility] [id number] 02/10 [facility] En[facility] [id number] 02/10 [facility] ASSMT/REAS SESSMENT [id number] Diagnos is: ICD-10- CM Z71.0 Prsn encntr hlth serv to consult on behalf of another person [facility] [place], [facility] E 03/11 [facility] PRO PHONE CALL 11-20 MIN [id number] Diagnos is: ICD-10- CM Z71.0 Prsn encntr hlth serv to consult on behalf of another person KELSEY,RU E 06/17 [facility] PRO PHONE CALL 5-10 MIN [id number] Diagnos is: ICD-10- CM Z71.0 Prsn encntr hlth serv to consult on behalf of another person KELSEY,RU E 06/24 [facility] PRO PHONE CALL 11-20 MIN [id number] Diagnos is: ICD-10- CM Z71.0 Prsn encntr hlth serv to consult on behalf of another person KELSEY,RU E 06/25 [facility] ASSMT/REAS SESSMENT [id number] Diagnos is: ICD-10- CM Z71.0 Prsn encntr hlth serv to consult on behalf of another person KELSEY,RU E 07/07 [facility] PRO PHONE CALL 5-10 MIN [id number] Diagnos is: ICD-10- CM Z71.0 Prsn encntr hlth serv to consult on behalf of another person KELSEY,RU E 07/09 [facility] Out[facility] Encounter [id number] 11/20 [facility] PRO PHONE CALL 5-10 MIN [id number] Diagnos is: ICD-10- CM Z71.0 Prsn encntr hlth serv to consult on behalf of another person LOW,RU TH E 11/24 [facility] En[facility] [id number] [facility] En[facility] [id number] 02/04 [facility] HC PRO PHONE CALL 5-10 MIN [id number] Diagnos is: ICD-10- CM Z71.0 Prsn encntr hlth serv to consult on behalf of another person LOW,RU TH E 03/24 [facility] En[facility] [id number] 03/26 [facility] ASSMT/REAS SESSMENT [id number] Diagnos is: ICD-10- CM Z71.0 Prsn encntr hlth serv to consult on behalf of another person LOW,RU TH E 04/02 [facility] [facility] Social History Combined list of available smoking, tobacco, and other social history from Department of Defense and Veterans Affairs facilities. Social History Type Response Date Comment Sourc e This section is an empty social history section. [employer]
--- OUTSIDE RECORDS SUMMARY | 2024-05-27 20:22 | XMS_ITS | Encounter Summary ---
Author Organization [facility] Address [address] [place] [address] Care Team Providers Care Dental Office Receptionist Name Role Phone Mary JaneMarita yousif Primary Care Provider [phone]- [phone] Encounter Details Date Type Department Care Team (Late st Contact Info) Description 03/19/2024 Lab Requisition [facility] - [facility] Lab [address] [facility] [place] [address] Catalina Burr MD [address] [place] [address] Chronic embolism and thrombosis of unspecified vein; Acute kidney failure, unspecified (CMS/HCC); Type 2 diabetes mellitus without complications (CMS/HCC) Social History Tobacco Use Types Packs/Day [...] Date/Time Associated Diagnosis Comments TACROLIMUS LEVEL Routine 03/22/2024 6:50 AM EST Chronic embolism and thrombosis of unspecified vein Acute kidney failure, unspecified (CMS/HCC) Type 2 diabetes mellitus without complications (CMS/HCC) COMPLETE BLOOD COUNT Routine 03/22/2024 6:50 AM EST Chronic embolism and thrombosis of unspecified vein Acute kidney failure, unspecified (CMS/HCC) Type 2 diabetes mellitus without complications (CMS/HCC) RENAL FUNCTION PANEL Routine 03/22/2024 6:50 AM EST Chronic embolism and thrombosis of unspecified vein Acute kidney failure, unspecified (CMS/HCC) Type 2 diabetes mellitus without complications (CMS/HCC) documented in this encounter Results * Tacrolimus level (03/22/2024 6:50 AM EST) Tacrolimus Level 6.1 5.0 - 20.0 ng/mL 03/24/2024 1:11 PM EST [facility] Comment: Additional Information: [...] developed and the performance characteristics determined by [facility]. This confirmation testing has not been cleared or approved by the FDA. The laboratory is regulated under CLIA as qualified to perform high-complexity testing. This test is used for patient testing purposes. It should not be regarded as investigational or for research. Test performed at [facility], [address] [place], [place] ??[address] ? [phone] Ashtyn Leigh MD, PhD - Radio Engineer Blood Venous blood specimen / Unknown Venipuncture / Unknown 03/22/2024 6:50 AM EST 03/22/2024 8:05 AM EST Catalina Burr MD LAB BLOOD ORDERABLES [place] [address] [place] [address] * (ABNORMAL) Renal function panel (03/22/2024 6:50 AM EST) Sodium 138 133 - 145 mmol/L LAB CHEMISTRY METHOD 03/22/2024 8:55 AM [facility] Potassium 4.6 3.5 - 5.5 mmol/L LAB CHEMISTRY METHOD 03/22/2024 8:55 AM [facility] Chloride 107 96 - 110 mmol/L LAB CHEMISTRY METHOD 03/22/2024 8:55 AM [facility] CO2 20(L) 21 - 32 mmol/L LAB CHEMISTRY METHOD 03/22/2024 8:55 AM [facility] Anion Gap 11 3 - 11 LAB CHEMISTRY METHOD 03/22/2024 8:55 AM [facility] Glucose 158(H) 70 - 100 mg/dL LAB CHEMISTRY METHOD 03/22/2024 8:55 AM [facility] BUN 51(H) 5 - 25 mg/dL LAB CHEMISTRY METHOD 03/22/2024 8:55 AM [facility] Creatinine 4.91(H) 0.50 - 1.10 mg/dL LAB CHEMISTRY METHOD 03/22/2024 8:55 AM [facility] eGFR 9(L) >=60 mL/min/1. 73m2 LAB CHEMISTRY METHOD 03/22/2024 8:55 AM [facility] Comment:Calculation based on the??Chronic Kidney Disease Epidemiology Collaboration (CKD-EPI) equation refit??without adjustment for race. BUN/Creatinine Ratio 10.4 LAB CHEMISTRY METHOD 03/22/2024 8:55 AM [facility] Albumin 2.1(L) 3.2 - 5.0 g/dL LAB CHEMISTRY METHOD 03/22/2024 8:55 AM [facility] Calcium 9.0 8.5 - 10.5 mg/dL LAB CHEMISTRY METHOD 03/22/2024 8:55 AM [facility] Phosphorus 3.4 2.5 - 4.5 mg/dL LAB CHEMISTRY METHOD 03/22/2024 8:55 AM [facility] Blood Venous blood specimen / Unknown Venipuncture / Unknown 03/22/2024 6:50 AM EST 03/22/2024 8:05 AM EST Catalina Burr MD LAB BLOOD ORDERABLES Performing Organization Address City/State/[facility] Co de Phone Number [facility] [address] [place] [address], * (ABNORMAL) Complete blood count (03/22/2024 6:50 AM EST) WBC 10.4 4.8 - 10.8 K/mcL LAB HEMETOLOGY METHOD 03/22/2024 8:32 AM [facility] RBC 2.80(L) 3.80 - 4.80 M/mcL LAB HEMETOLOGY METHOD 03/22/2024 8:32 AM [facility] Hemoglobin 7.9(L) 11.5 - 16.0 g/dL LAB HEMETOLOGY METHOD 03/22/2024 8:32 AM [facility] Hematocrit 27.8(L) 35.0 - 47.0 % LAB HEMETOLOGY METHOD 03/22/2024 8:32 AM [facility] MCV 98.6(H) 79.0 - 98.0 FL LAB HEMETOLOGY METHOD 03/22/2024 8:32 AM [facility] MCH 28.0 27.0 - 32.0 pcg LAB HEMETOLOGY METHOD 03/22/2024 8:32 AM [facility] MCHC 28.4(L) 32.0 - 37.0 g/dL LAB HEMETOLOGY METHOD 03/22/2024 8:32 AM [facility] RDW 17.8(H) 11.0 - 15.0 % LAB HEMETOLOGY METHOD 03/22/2024 8:32 AM [facility] Platelets 218 130 - 400 K/mcL LAB HEMETOLOGY METHOD 03/22/2024 8:32 AM [facility] MPV 10.7 7.0 - 11.0 FL LAB HEMETOLOGY METHOD 03/22/2024 8:32 AM [facility] NRBC 0.0 <1.0 % LAB HEMETOLOGY METHOD 03/22/2024 8:32 AM [facility] NRBC Absolute 0.00 <0.10 K/mcL LAB HEMETOLOGY METHOD 03/22/2024 8:32 AM [facility] Blood Venous blood specimen / Unknown Venipuncture / Unknown 03/22/2024 6:50 AM EST 03/22/2024 8:05 AM EST Catalina Burr MD LAB BLOOD ORDERABLES [facility] [address] [place] [address], documented in this encounter Visit Diagnoses Diagnosis Chronic embolism and thrombosis of unspecified vein Acute kidney failure, unspecified (CMS/HCC) Acute kidney failure, unspecified Type 2 diabetes mellitus without complications (CMS/HCC) documented in this encounter Care Teams Dental Office Receptionist Relationship Specialty Start Date End Date Marita Wetzel DO [address] [place] [address] PCP - General 01/09/23 documented as of this encounter
--- OUTSIDE RECORDS SUMMARY | 2024-05-27 20:22 | XMS_ITS | Data Portability ---
Author Organization [place] - Jonathan Campbell Miakin [facility], [facility] Address [address] [place] [address] Assessment Encounter Date Assessment Date Assessment LastModified by Organization Details LastModified Time 04/06/2024 04/06/2024 63-year-old femsylwia ross presents today for follow-up evaluation status post CRPP left subcapital femoral neck fracture on February 11, 2024 who [facility] and noted some pain developing over the past couple weeks after beginning therapy on the hip. She remains touchdown weightbearing. Who hirsute. Her most screw appears to be embedded within subchondral bone at the head of the femur, but does not appear to obviously violate this or obviously go through the head into the joint space. She also has no irritability on exam today with internal/external rotation of her hip. Recommended close observation of this. She will continue to be touchdown weightbearing on the left lower extremity, and will arrange follow-up with Dr. Cristobal in 3 to 4 weeks for recheck on x-rays to monitor for any screw migration. [email or web address] Not available 04/06/2024 11:10:45 05/10/2024 05/10/2024 Findings and Studies were discussed with the patient and questions answered to their satisfaction Impression Left femoral neck fracture, radiographically stable, which is reassuring, I do not think the screw that was of concern has moved at all, and therefore I do not think benefit of waiting and observing offsets the risk of further deconditioning. PLAN SUMMARY: - Increase daily activity, including walking with a walker, and at least standby assistance. - Follow up in 4 weeks for another x-ray - Put weight on both legs as tolerated - Contact office if any changes or increased discomfort occur RIGHT HIP PAIN AND FRACTURE: - Assisted patient in standing and taking a few steps to evaluate weight-bearing ability and gait. - Increase activity levels, including getting up and walking each day. - Put weight on both legs as tolerated. - Reach back for chair when sitting down for safety. FOLLOW-UP: - Follow up in about 4 weeks for another x-ray. - Contact the office sooner if patient notices any changes, feels something different, or if something starts bothering her more. Patient may call or return sooner for any additional questions or changes in condition. Portions of this note were generated by [employer]. 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 Time spent face to face with patient: 15 minutes Copy sent with patient. [email or web address] Not available 05/10/2024 12:39:52 Plan of Treatment Reminders Order Date Submit Date Provider Last Modified By Organization Details Last Modified Time Details Appointments RECHECK 15 2024 10:30A M Hunter Cristobal MD Not available Not available Not available Lab None recorded . Referral None recorded . Procedures None recorded . Surgeries None recorded . Imaging XR, hip + pelvis, unilater al, 2 or 3 view - rm.308 2 v of left hip 2023 024 [email or web address] [facility] Office, [address], [place], [address], 04/06/2024 11:35:30 XR, hip + pelvis, unilater al, 2 or 3 view - 311 2v left hip and ap pelvis global 2024 025 [email or web address] [facility] Office, [address], [address], [place], [address], 05/10/2024 13:03:52 Medication Orders None recorded . Patient TargetsNo targets recorded. Patient InstructionsNo instructions recorded. Reason for Referral None Reported. Results Created Date Observation Date Name Description Value Unit Range Abnormal Flag Note LastModifiedBy Organization Detail LastModifiedTime 04/06/2004/06/2024 XR, hip + pelvi s, unila teral , 2 or 3 view http:/ [email or web address] ?Encry pted=s hAaTro YD8dLq bEUv6g %2BXZw aYqtaq 0bqfl% 2Fg9IQ a4ajBk vP9nXo QUaueC m3YtLR FvZlgJ JJ8mAn HZtai3 1h4507 AC0Kqb n6HWaG jKiQtr MwF INTER[facility] [address], [place], [address], 04/06/2024 10:47:38 04/06/20 24 04/06/2024 XR, hip + pelvi s, unila teral , 2 or 3 view http:/ [email or web address] ?Encry pted=s hAaTro YD8dLq bEUv6g %2BXZw aYqtaq 0bqfl% 2Fg9IQ a4ajBk vP9nXo QUaueC m3YtLR FvZlgJ JJ8mAn HZtai3 1b2710 AC0Kqb n6HWaG jKiQtr MwF INTERFACE [facility] [address], [place], [address], 04/06/2024 10:47:40 05/10/19 25 05/10/2024 XR, hip + pelvi s, unila teral , 2 or 3 view http:/ [email or web address] ?Encry pted=s hAaTro YD8dLq bEUv6g %2BXZw aYqtaq 0bqfl% 2Fg9IQ a4ajBk vP9nXo QUaueC m3YtLR FvZlgJ JJ8mAn HZtai3 0h5987 AC0Kqb 3uAUqe kKiQtr MwF INTERFACE [facility] [address], [place], [address], 05/10/2024 11:31:26 05/10/19 25 05/10/2024 XR, hip + pelvi s, unila teral , 2 or 3 view http:/ [email or web address] ?Encry pted=s hAaTro YD8dLq bEUv6g %2BXZw aYqtaq 0bqfl% 2Fg9IQ a4ajBk vP9nXo QUaueC m3YtLR FvZlgJ JJ8mAn HZtai3 2g3530 AC0Kqb 3uAUqe kKiQtr MwF INTERFACE [facility] [address], [place], [address], 05/10/2024 11:31:28 Result Notes None recorded. Problems Name Problem SNOMED Code Status Onset Date Resolution Date Notes Provider Name and Address Organization Details Recorded Time Fracture of neck of left femur Active 024 Bayron Nguyễn PA-C [address], [place], [address] , [facility] 4 08:12:45 Closed fracture of hip 629057808 [facility] 5 11:00:31 Problem Notes None recorded. Procedures Surgical History Date Name Laterality Status Provider Name and Address Organization Details Recorded Time 4 procedure on hip completed VINI MARVIN [facility] 05/10/2024 11:30:03 Imaging Results Imaging Date Name Status LastModified by Organiz ation Details LastModified Time 04/06/2024 XR, hip + pelvis, unilateral , 2 or 3 view completed [facility] [address], [place], [address], 04/06/2024 10:47:38 04/06/2024 XR, hip + pelvis, unilateral , 2 or 3 view completed INTERFACE [facility] [address], [place], [address], 04/06/2024 10:47:40 05/10/2024 XR, hip + pelvis, unilateral , 2 or 3 view completed INTERFACE [facility] [address], [place], [address], 05/10/2024 11:31:26 05/10/2024 XR, hip + pelvis, unilateral , 2 or 3 view completed INTERFACE [facility] [address] [facility] [address], [place], [address], 05/10/2024 11:31:28 Procedure Notes None recorded. Medical Equipment None Reported. Allergies Allergen ID Allergen Name Allergen Category Reaction Reaction Severity Criticality Documentation Date Start Date Code Code System Note Provider Name and Address Organization Details Recorded Time 109501 codeine medicatio n Not available Not available Not available 05/10/2024 2670 RxNorm VINI RAIYMOUR [facility] 11:23:18 434242 oxycodone medicatio n Not available Not available Not available 05/10/2024 7804 RxNorm VINI SHAVONNE [facility] 11:23:22 Medications Name Sig Start Date Stop Date Status Note LastModified by Organization Details LastModified Time carvedilol 25 mg tablet TAKE 1 TABLET BY MOUTH EVERY DAY IN THE MORNING AND IN THE EVENING WITH MEALS 2024 active Not Available Not Available Not Avai lable acetaminoph en 325 mg tablet Take 2 tablets every 6 hours by oral route. active Not Available Not Available No t Available prednisone 10 mg tablet TAKE 6 TABS BY MOUTH X2 DAYS 5 TABS X2 DAYS 4 TABS X2 DAYS 3 TABS X2 DAYS 2 TAB X2 DAYS 1 TAB X2 DAY 05/10 completed Not Available Not Available Not Available fosfomycin tromethamin e 3 gram oral packet TAKE 1 PACKET BY MOUTH (3G) DIRECTED EVERY 3 DAYS FOR 2 DOSES 05/10 completed Not Available Not Available Not Available fluconazole 150 mg tablet TAKE 1 TABLET BY MOUTH ONE TIME FOR 1 DOSE 05/10 completed Not Available Not Available Not Available sulfamethox azole 400 mg-trimetho prim 80 mg tablet TAKE 1 TABLET BY MOUTH EVERY OTHER DAY FOR 14 DAYS 05/10 completed Not Available Not Available Not Available Procrit 40,000 unit/mL injection solution 05/10 completed Not Available Not Available Not Available sucralfate 1 gram tablet TAKE 1 TABLET BY MOUTH THREE TIMES A DAY 05/10 completed Not Available Not Available Not Available ondansetron HCl 4 mg tablet active Not Available Not Available Not Available isosorbide mononitrate ER 30 mg tablet,exte nded release 24 hr TAKE 1 TABLET BY MOUTH EVERY MORNING active Not Available Not Available No t Available clonidine HCl 0.3 mg tablet TAKE 1 TABLET BY MOUTH TWICE A DAY FOR 30 DAYS 05/10 completed Not Available Not Available Not Available prednisone 5 mg tablet TAKE 1.5 TABLET (7.5 MG) BY MOUTH DAILY 05/10 completed Not Available Not Available Not Available hydralazine 25 mg tablet TAKE 1 TABLET (25 MG TOTAL) BY MOUTH IN THE MORNING 1 TABLET IN THE EVENING AND 1 TABLET AT BEDTIME 05/10 completed Not Available Not Available Not Available ciprofloxac in 500 mg tablet TAKE 1 TABLET BY MOUTH 1 TIME EACH DAY FOR 10 DAYS. 05/10 completed Not Available Not Available Not Available tramadol 50 mg tablet TAKE 1 TABLET BY MOUTH EVERY 8 HOURS NEEDED FOR PAIN 05/10 completed Not Available Not Available Not Available potassium chloride ER 20 mEq tablet,exte nded release(par t/cryst) TAKE 1 TABLET BY MOUTH TWO TIMES A DAY FOR 14 DAYS 05/10 completed Not Available Not Available Not Available Benadryl Allergy 12.5 mg chewable tablet Chew 2 tablets every 4 hours by oral route. active Not Available Not Available No t Available Humalog U-100 Insulin 100 unit/mL subcutaneou s solution PLEASE SEE ATTACHED FOR DETAILED DIRECTION S 05/10 completed Not Available Not Available Not Available sodium bicarbonate 650 mg tablet TAKE 2 TABLETS BY MOUTH TWICE A DAY 2024 active Not Available Not Available Not Avai lable amlodipine 10 mg tablet TAKE 1 TABLET BY MOUTH 1 TIME EACH DAY. 2024 active Not Available Not Available Not Avai lable prednisone 2.5 mg tablet TAKE 3 TABLETS BY MOUTH DAILY WITH FOOD OR MILK active Not Available Not Available No t Available pantoprazol e 40 mg tablet,jonas yed release TAKE 1 TABLET (40 MG) BY MOUTH DAILY BEFORE BREAKFAST DO NOT CRUSH, CHEW, OR SPLIT 05/10 completed Not Available Not Available Not Available lansoprazol e 30 mg capsule,del ayed release PLEASE SEE ATTACHED FOR DETAILED DIRECTION S 05/10 completed Not Available Not Available Not Available Dilaudid 4 mg tablet Take 1 tablet every 4 hours by oral route. active Not Available Not Available No t Available sertraline 25 mg tablet TAKE 1 TABLET BY MOUTH EVERY DAY IN THE MORNING active Not Available Not Available No t Available Procrit 20,000 unit/mL injection solution 05/10 completed Not Available Not Available Not Available folic acid 1 mg tablet TAKE 1 TABLET BY MOUTH 1 TIME EACH DAY. 05/10 completed Not Available Not Available Not Available dorzolamide 22.3 mg-timolol 6.8 mg/mL eye drops INSTILL 1 DROP INTO BOTH EYES TWICE A DAY 05/10 completed Not Available Not Available Not Available hydroxyzine HCl 25 mg tablet 05/10 completed Not Available Not Available Not Available sodium polystyrene sulfonate oral powder PLEASE SEE ATTACHED FOR DETAILED DIRECTION S 05/10 completed Not Available Not Available Not Available ondansetron 4 mg disintegrat ing tablet DISSOLVE 1 TABLET BY MOUTH EVERY 8 HOURS NEEDED FOR NAUSEA AND VOMITING 05/10 completed Not Available Not Available Not Available hydroxyzine pamoate 25 mg capsule TAKE 1 CAPSULE (25 MG) BY MOUTH EVERY 6 (SIX) HOURS IF NEEDED FOR ANXIETY. 05/10 completed Not Available Not Available Not Available insulin lispro (U-100) 100 unit/mL subcutaneou s pen PLEASE SEE ATTACHED FOR DETAILED DIRECTION S active Not Available Not Available No t Available mycophenola te sodium 360 mg tablet,jonas yed release TAKE 1 TABLET (360 MG TOTAL) BY MOUTH IN THE MORNING AND 1 TABLET (360 MG TOTAL) IN THE EVENING. active Not Available Not Available No t Available tacrolimus active Not Available Not Av ailable Not Available Lantus Solostar U-100 Insulin 100 unit/mL (3 mL) subcutaneou s pen INJECT 15 UNITS UNDER THE SKIN IN THE MORNING. 05/10 completed Not Available Not Available Not Available GaviLyte-G 236 gram-22.74 gram-6.74 gram-5.86 gram oral solution USE DIRECTED PER OFFICE 05/10 completed Not Available Not Available Not Available potassium chloride ER 20 mEq tablet,exte nded release TAKE 1 TABLET BY MOUTH EVERY DAY FOR 7 DAYS 05/10 completed Not Available Not Available Not Available Envarsus XR 1 mg tablet,exte nded release TAKE 11 TABS BY MOUTH EVERY MORNING FOR 30 DAYS 05/10 completed Not Available Not Available Not Available naloxone 4 mg/actuatio n nasal spray Take by nasal route. active Not Available Not Available No t Available Retacrit 4,000 unit/mL injection solution Take by injection route. active Not Available Not Available No t Available omeprazole 20 mg delayed release,dis integrating tablet Take by oral route. active Not Available Not Available No t Available Lokelma 10 gram oral powder packet MIX AND DRINK 1 PACK/PACK ET BY MOUTH DAILY,X2 DAYS HAVE REPEAT BLOOD WORK DONE IN 5 DAYS. 05/10 completed Not Available Not Available Not Available Nephro Vitamins 0.8 mg tablet Take by oral route. active Not Available Not Available No t Available Vitals Date Recorded Body height Body mass index (BMI) Body weight Provider Name and Address Organization Details Last Updated DateTime 04/06/2024 167.64 cm 18.7 kg/m2 50334.71 g dar keenan [facility] 04/06/2024 11:02:27 Date Recorded Body height Provider Name an d Address Organization Details Last Updated DateTime 05/10/2024 167.64 cm VINI MARVIN [facility] 05/10/2024 11:22:50 Social History None recorded. Functional Status None recorded. Mental Status None recorded. Family History Nothing Reported. Medical History Condition Response Allergies/Hayfever N Coronary Artery Disease N Anxiety/Depression Y Breathing or lung disorders N Emphysema N Nerve Disorders N Thyroid Problems N COPD N Pacemaker N Anemia Y Kidney/Bladder Problems Y Vascular Disease N Heart Trouble N Heart Attack (TN) N Gastrointestinal Disease N Cholesterol Y Diabetes Y Autoimmune disease N Bleeding Disorder N Inflammatory Joint disease Y Orthotics N Arthritis N Seizures/Epilepsy N Blood Clot N AIDS/HIV N Congestive Heart Failure (CHF) N Acid Reflux (GERD) Y Cancer N Stroke N Asthma N Circulation Problems N Peripheral Vascular Disease N Sleep Apnea N Hepatitis N Heart Disease N Rheumatoid Arthritis N Arrhythmia N Pulmonary Embolism N Headaches N Fibromyalgia N Hypertension Y Osteoporosis N Gynecological HistoryNo gynecological history recorded. Obstetrics History GPAL:G 0 P 0 0 0 0 Past Encounters Encounter ID Performer Location Encounter Start Date Encounter Closed Date Diagnosis/Indication Diagnosis SNOMED-CT Code Diagnosis ICD10 Code Diagnosis Note [id number] [facility] [address] [place] [address] 04/06/2024 10:29:00 04/28/2024 12:58:22 Fracture of neck of left femur 4506748020 7108 S72.002A Fracture o f bone of hip region 552422269 M80.052A Closed fra cture proximal femur, subcapital, Garden grade II 548758754 S72.012A [id number] MD MISHA [facility] - [place] [address] [place] [address] 05/10/2024 11:04:50 05/10/2024 12:44:22 Closed fracture of hip 990829640 S72.002A Health Concerns Section Related Observation LastModified by Organization Detai ls LastModified Time None Recorded Concern Status LastModified by Organization Details LastModified Time None Recorded Advance Directives Directive None Recorded Payers Encounter Date Sequence Insurance Name Policy Number Policy Engle Covered Member ID Engle Member ID Guarantor Name 04/06/2024 1 [place]ARE [place]: [facility] [id number] Alix Sharp 05/10/2024 1 [place] [facility] [id number] [facility] Notes Date Note Type Note Provider Name and Address Organization Details Recorded Time 04/06/2024 text/html I am seeing the patient today under the supervision of Dr. Butler who was available but who did not see the patient. Surgeon: Dr. CristobalProcedure: CRPP left subcapital femoral neck fractureDate of procedure: February 11, 2024 HPI: 63-year-old female presents today for follow-up evaluation status post CRPP left subcapital femoral neck fracture on February 11, 2024. She notes she started physical therapy over the past 1 to 2 weeks and has been having some escalating pain. She continues to remain touchdown weightbearing on the left lower extremity. She denies any pain currently on exam. Presents for evaluation. [facility] [address], [place], [address], [facility] 04/06/2024 11:10:49 05/10/2024 text/html CHIEF COMPLAINT: - Follow-up evaluation status post pinning of a left subcapital femoral neck fracture. HPI: Ms. Sharp presents for follow-up evaluation post pinning of a left subcapital femoral neck fracture on 02-11-2024. At her last visit on April 06, there was concern about potential screw migration, though it had not gone through the femoral head or subchondral bone. She reports feeling groggy and having difficulty standing up, particularly this morning. Her daughter mentions that yesterday she was doing okay, but this morning she could barely stand up. Ms. Sharp confirms it is painful when trying to stand. She is currently staying at a facility and reports that they limit her mobility. She mentions eating better. Pain is present on the side of her hip in the morning. She denies any fevers or chills. She denies any formal medical diagnoses. MEDICAL HISTORY: - Reflux - Anemia - Depression - Elevated cholesterol - Type 2 diabetes - End-stage renal disease with acute kidney failure on dialysis MEDICATIONS: - Tacrolimus - Kamazolaf - Retacrit - Prednisone - Omeprazole - Insulin - Isordil - Carvedilol - Amlodipine - Tylenol SURGICAL HISTORY: - Left subcapital femoral neck fracture pinnin02-11-2024 PREVIOUS TREATMENTS: - Pinning of a left subcapital femoral neck fracture on 02-11-2024. 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 05/10/2024 12:40:43 OBGyn Episode No OBEpisode recorded.
--- OUTSIDE RECORDS SUMMARY | 2024-05-27 20:22 | XMS_ITS | Encounter Summary ---
Author Organization [facility] Address [address] [place] [address] Phone Care Team Providers Care Oil Program Compliance Specialist Name Role Phone Marita Wetzel DO Primary Care Provider Unava ilable Encounter Details Date Type Department Care Team (Late st Contact Info) Description 04/13/2024 Documentation Only [facility] [address] [place] [id number] [place], [place], [place] [address] [place] [id number] Social History Tobacco Use Types Packs/Day Years [...] Support [facility] [address] [place] [address] 06/29/2024 7:30 AM EDT Scheduled Only [facility] [place] [address] [place] [id number] documented as of this encounter Visit Diagnoses Not on filedocumented in this encounter Care Teams Oil Program Compliance Specialist Relationship Specialty Start Date End Date Marita Wetzel DO [address] [place] [address] PCP - General Family Medicine 11/14/22 documented as of this encounter
--- OUTSIDE RECORDS SUMMARY | 2024-05-27 20:22 | XMS_ITS | Encounter Summary ---
Author Organization [facility] Address [address] [place] [address] Care Team Providers Care Requirements Analyst Name Role Phone Mary JaneMarita yousif Primary Care Provider +1- [phone] Encounter Details Date Type Department Care Team (Late st Contact Info) Description 03/01/2024 Lab Requisition [facility] - Main Lab [address] [facility] [place] [address] Catalina Burr MD [address] [place] [address] End stage renal disease (CMS/HCC); Type 2 diabetes mellitus without complications [...] Date/Time Associated Diagnosis Comments TACROLIMUS LEVEL Routine 03/01/2024 6:56 AM EST End stage renal disease (CMS/HCC) Type 2 diabetes mellitus without complications (CMS/HCC) COMPLETE BLOOD COUNT Routine 03/01/2024 6:56 AM EST End stage renal disease (CMS/HCC) Type 2 diabetes mellitus without complications (CMS/HCC) IRON Routine 03/01/2024 6:56 AM EST End stage renal disease (CMS/HCC) Type 2 diabetes mellitus without complications (CMS/HCC) FERRITIN Routine 03/01/2024 6:56 AM EST End stage renal disease (CMS/HCC) Type 2 diabetes mellitus without complications (CMS/HCC) RENAL FUNCTION PANEL Routine 03/01/2024 6:56 AM EST End stage renal disease (CMS/HCC) Type 2 diabetes mellitus without complications (CMS/HCC) documented in this encounter Results * (ABNORMAL) Ferritin (03/01/2024 6:56 AM EST) Ferritin 2,736(H) 8 - 252 ng/mL LAB CHEMISTRY METHOD 03/01/2024 11:[address] [facility] Blood Venous blood specimen / Unknown Venipuncture / Unknown 03/01/2024 6:56 AM EST 03/01/2024 9:07 AM EST Catalina Burr MD LAB BLOOD ORDERABLES Performing Organization Address [facility]/ZIP Co de Phone Number [facility] [address] [place] [address], * (ABNORMAL) Iron (03/01/2024 6:56 AM EST) [facility] Iron 29(L) 40 - 150 mcg/dL LAB CHEMISTRY METHOD 03/01/2024 11:[address] [facility] Blood Venous blood specimen / Unknown Venipuncture / Unknown 03/01/2024 6:56 AM EST 03/01/2024 9:07 AM EST Catalina Burr MD LAB BLOOD ORDERABLES [facility] [address] [place] [address], * Tacrolimus level (03/01/2024 6:56 AM EST) Pathologist [facility] Tacrolimus Level 5.2 5.0 - 20.0 ng/mL 03/04/2024 12:28 PM EST [facility] Comment: Additional Information: [...] developed and the performance characteristics determined by [facility]. This confirmation testing has not been cleared or approved by the FDA. The laboratory is regulated under CLIA as qualified to perform high-complexity testing. This test is used for patient testing purposes. It should not be regarded as investigational or for research. Test performed at [facility], [address], [place], [place] ??[address] ? [phone] Ashtyn Leigh MD, PhD - Geographic Information Systems Director Blood Venous blood specimen / Unknown Venipuncture / Unknown 03/01/2024 6:56 AM EST 03/01/2024 9:07 AM EST Catalina Burr MD LAB BLOOD ORDERABLES Performing Organization Address City/State/[facility] Co de Phone Number [facility] [address] [place] [address] * (ABNORMAL) Renal function panel (03/01/2024 6:56 AM EST) Sodium 140 133 - 145 mmol/L LAB CHEMISTRY METHOD 03/01/2024 11:04 AM [facility] Potassium 3.4(L) 3.5 - 5.5 mmol/L LAB CHEMISTRY METHOD 03/01/2024 11:04 AM [facility] Chloride 107 96 - 110 mmol/L LAB CHEMISTRY METHOD 03/01/2024 11:04 AM [facility] CO2 24 21 - 32 mmol/L LAB CHEMISTRY METHOD 03/01/2024 11:04 AM [facility] Anion Gap 9 3 - 11 LAB CHEMISTRY METHOD 03/01/2024 11:04 AM [facility] Glucose 107(H) 70 - 100 mg/dL LAB CHEMISTRY METHOD 03/01/2024 11:04 AM [facility] BUN 26(H) 5 - 25 mg/dL LAB CHEMISTRY METHOD 03/01/2024 11:04 AM [facility] Creatinine 2.88(H) 0.50 - 1.10 mg/dL LAB CHEMISTRY METHOD 03/01/2024 11:04 AM [facility] eGFR 18(L) >=60 mL/min/1. 73m2 LAB CHEMISTRY METHOD 03/01/2024 11:04 AM [facility] Comment:Calculation based on the??Chronic Kidney Disease Epidemiology Collaboration (CKD-EPI) equation refit??without adjustment for race. BUN/Creatinine Ratio 9.0 LAB CHEMISTRY METHOD 03/01/2024 11:04 AM [facility] Albumin 2.3(L) 3.2 - 5.0 g/dL LAB CHEMISTRY METHOD 03/01/2024 11:04 AM [facility] Calcium 8.9 8.5 - 10.5 mg/dL LAB CHEMISTRY METHOD 03/01/2024 11:04 AM [facility] Phosphorus 1.9(L) 2.5 - 4.5 mg/dL LAB CHEMISTRY METHOD 03/01/2024 11:04 AM [facility] Blood Venous blood specimen / Unknown Venipuncture / Unknown 03/01/2024 6:56 AM EST 03/01/2024 9:07 AM EST Catalina Burr MD LAB BLOOD ORDERABLES [facility] [address] [place] [address], * (ABNORMAL) Complete blood count (03/01/2024 6:56 AM EST) WBC 10.2 4.8 - 10.8 K/mcL LAB HEMETOLOGY METHOD 03/01/2024 10:46 AM [facility] RBC 2.70(L) 3.80 - 4.80 M/mcL LAB HEMETOLOGY METHOD 03/01/2024 10:46 AM [facility] Hemoglobin 7.5(L) 11.5 - 16.0 g/dL LAB HEMETOLOGY METHOD 03/01/2024 10:46 AM [facility] Hematocrit 26.1(L) 35.0 - 47.0 % LAB HEMETOLOGY METHOD 03/01/2024 10:46 AM [facility] MCV 97.8 79.0 - 98.0 FL LAB HEMETOLOGY METHOD 03/01/2024 10:46 AM [facility] MCH 28.1 27.0 - 32.0 pcg LAB HEMETOLOGY METHOD 03/01/2024 10:46 AM [facility] MCHC 28.7(L) 32.0 - 37.0 g/dL LAB HEMETOLOGY METHOD 03/01/2024 10:46 AM [facility] RDW 16.7(H) 11.0 - 15.0 % LAB HEMETOLOGY METHOD 03/01/2024 10:[address] [facility] Platelets 235 130 - 400 K/mcL LAB HEMETOLOGY METHOD 03/01/2024 10:[address] [facility] MPV 10.8 7.0 - 11.0 FL LAB HEMETOLOGY METHOD 03/01/2024 10:[address] [facility] NRBC 0.0 <1.0 % LAB HEMETOLOGY METHOD 03/01/2024 10:[address] [facility] NRBC Absolute 0.00 <0.10 K/mcL LAB HEMETOLOGY METHOD 03/01/2024 10:46 AM [facility] Blood Venous blood specimen / Unknown Venipuncture / Unknown 03/01/2024 6:56 AM EST 03/01/2024 9:07 AM EST Catalina Burr MD LAB BLOOD ORDERABLES [facility] [address] [place] [address], documented in this encounter Visit Diagnoses Diagnosis End stage renal disease (CMS/HCC) End stage renal disease Type 2 diabetes mellitus without complications (CMS/HCC) documented in this encounter Care Teams Requirements Analyst Relationship Specialty Start Date End Date Marita Wetzel DO [address] [place] [address] PCP - General 01/09/23 documented as of this encounter
--- OUTSIDE RECORDS SUMMARY | 2024-05-27 20:22 | XMS_ITS | Encounter Summary ---
Author Organization [facility] Address [address] [place] [address] Care Team Providers Care Sill Worker Name Role Phone Marita Wetzel Primary Care Provider +1- [phone] Encounter Details Date Type Department Care Team (Late st Contact Info) Description 03/30/2024 Lab Requisition [facility] - Main Lab [address] [facility] [place] [address] Catalina Burr MD [address] [place] [address] Chronic embolism and thrombosis of unspecified vein; [...] Priority Date/Time Associated Diagnosis Comments IRON Routine 03/31/2024 9:23 AM EST Chronic embolism and thrombosis of unspecified vein Acute kidney failure, unspecified (CMS/HCC) FERRITIN Routine 03/31/2024 9:23 AM EST Chronic embolism and thrombosis of unspecified vein Acute kidney failure, unspecified (CMS/HCC) documented in this encounter Results * (ABNORMAL) Iron (03/31/2024 9:23 AM EST) Iron 18(L) 40 - 150 mcg/dL LAB CHEMISTRY METHOD 03/31/2024 12:06 PM EST [facility] Blood Venous blood specimen / Unknown Venipuncture / Unknown 03/31/2024 9:23 AM EST 03/31/2024 11:25 AM EST Catalina Burr MD LAB BLOOD ORDERABLES [facility] [address] [place] [address], * (ABNORMAL) Ferritin (03/31/2024 9:23 AM EST) Ferritin 6,203(H) 8 - 252 ng/mL LAB CHEMISTRY METHOD 03/31/2024 12:10 PM EST [facility] Blood Venous blood specimen / Unknown Venipuncture / Unknown 03/31/2024 9:23 AM EST 03/31/2024 11:25 AM EST Catalina Burr MD LAB BLOOD ORDERABLES Performing Organization Address City/[facility]/ZIP Co de Phone Number [facility] [address] [place] [address], documented in this encounter Visit Diagnoses Diagnosis Chronic embolism and thrombosis of unspecified vein Acute kidney failure, unspecified (CMS/HCC) Acute kidney failure, unspecified documented in this encounter Care Teams Sill Worker Relationship Specialty Start Date End Date Marita Wetzel DO [address] [place] [address] PCP - General 01/09/23 documented as of this encounter
--- OUTSIDE RECORDS SUMMARY | 2024-05-27 20:22 | XMS_ITS | Encounter Summary ---
Author Organization [facility] Address [address] [place] [address] Phone Care Team Providers Care Rag Inspector Name Role Phone Marita Wetzel DO Primary Care Provider Unava ilable Encounter Details Date Type Department Care Team (Late st Contact Info) Description 11/11/2022 Documentation Only [facility] [address] [place] [address] Pauline Aguayo [address] [place] [address] Social History Tobacco Use Types [...] Support [facility] [address] [place] [address] 06/29/2024 7:30 AM EDT Scheduled Only [facility] [address] [place] [phone] documented as of this encounter Visit Diagnoses Not on filedocumented in this encounter Care Teams Rag Inspector Relationship Specialty Start Date End Date Marita Wetezl DO [address] [place] [address] PCP - General Family Medicine 11/14/22 documented as of this encounter
--- OUTSIDE RECORDS SUMMARY | 2024-05-27 20:22 | XMS_ITS | Encounter Summary ---
Author Organization [facility] Address [address] [place] [address] Phone Care Team Providers Care Gear Keeper Name Role Phone Marita Wetzel DO Primary Care Provider Unava ilable Encounter Details Date Type Department Care Team (Late st Contact Info) Description 04/17/2024 Documentation Only [facility] [address] [place] [phone] [place], [place], [place] [address] [place] [phone] Social History Tobacco Use Types Packs/Day Years [...] Support [facility] [address] [place] [phone] 06/29/2024 7:30 AM EDT Scheduled Only [facility] Access [place] [address] [place] [phone] documented as of this encounter Visit Diagnoses Not on filedocumented in this encounter Care Teams Gear Keeper Relationship Specialty Start Date End Date Marita Wetzel DO [address] [place] [address] PCP - General Family Medicine 11/14/22 documented as of this encounter
--- OUTSIDE RECORDS SUMMARY | 2024-05-27 20:22 | XMS_ITS | Encounter Summary ---
Author Organization [facility], Address [address] [place] [address] Phone Care Team Providers Care Health Director Name Role Phone Marita Wetzel DO Primary Care Provider Unava ilable Encounter Details Date Type Department Care Team (Late st Contact Info) Description 06/23/2023 Documentation Only [facility] [address] [place] [place] [phone] [place], [place] [address] [place] [phone] Social History Tobacco Use Types Packs/Day Years [...] Support [facility] - [facility] Center [address] [place] [phone] 06/29/2024 7:30 AM EDT Scheduled Only [facility] [address] [place] [phone] documented as of this encounter Visit Diagnoses Not on filedocumented in this encounter Care Teams Health Director Relationship Specialty Start Date End Date Marita Wetzel DO [address] [place] [address] PCP - General Family Medicine 11/14/22 documented as of this encounter
--- OUTSIDE RECORDS SUMMARY | 2024-05-27 20:22 | XMS_ITS | Encounter Summary ---
Author Organization [facility] Address [address] [place] [address] Phone Care Team Providers Care Boarder Machine Name Role Phone Marita Wetzel DO Primary Care Provider Unava ilable Encounter Details Date Type Department Care Team (Late st Contact Info) Description 09/26/2022 Documentation Only [facility] [address] [place] [phone] Candace Adam PA Social History Tobacco Use [...] Support [facility] Center [address] [place] [phone] 06/29/2024 7:30 AM EDT Scheduled Only [facility] Access [place] [address] [place] [phone] documented as of this encounter Visit Diagnoses Not on filedocumented in this encounter Care Teams Boarder Machine Relationship Specialty Start Date End Date Marita Wetzel DO [address] [place] [address] PCP - General Family Medicine 11/14/22 documented as of this encounter
--- OUTSIDE RECORDS SUMMARY | 2024-05-27 20:22 | XMS_ITS | Encounter Summary ---
Author Organization [facility] Address [address] [place] [address] Care Team Providers Care Armature Winder Helper Repair Name Role Phone Marita Wetzel DO Primary Care Provider +1- [phone] Encounter Details Date Type Department Care Team (Late st Contact Info) Description 04/10/2024 Lab Requisition [facility] - Main Lab [address] [facility] [place] [phone] Marily Gordillo MD [address] [place] [phone] Chronic embolism and thrombosis of unspecified vein; [...] unspecified documented in this encounter Care Teams Armature Winder Helper Repair Relationship Specialty Start Date End Date Marita Wetzel DO [address] [place] [address] PCP - General 01/09/23 documented as of this encounter
--- OUTSIDE RECORDS SUMMARY | 2024-05-27 20:22 | XMS_ITS | Encounter Summary ---
Author Organization [facility] Address [address] [place] [address] Care Team Providers Care Passenger Representative Name Role Phone Mary JaneMarita yousif Primary Care Provider +1- [phone] Encounter Details Date Type Department Care Team (Late st Contact Info) Description 03/05/2024 Lab Requisition [facility] - Main Lab [address] [facility] [place] [address] Catalina Burr MD [address] [place] [address] Chronic embolism and thrombosis of unspecified vein; [...] Date/Time Associated Diagnosis Comments TACROLIMUS LEVEL Routine 03/08/2024 6:29 AM EST Chronic embolism and thrombosis of unspecified vein Acute kidney failure, unspecified (CMS/HCC) Type 2 diabetes mellitus without complications (CMS/HCC) COMPLETE BLOOD COUNT Routine 03/08/2024 6:29 AM EST Chronic embolism and thrombosis of unspecified vein Acute kidney failure, unspecified (CMS/HCC) Type 2 diabetes mellitus without complications (CMS/HCC) RENAL FUNCTION PANEL Routine 03/08/2024 6:29 AM EST Chronic embolism and thrombosis of unspecified vein Acute kidney failure, unspecified (CMS/HCC) Type 2 diabetes mellitus without complications (CMS/HCC) documented in this encounter Results * Tacrolimus level (03/08/2024 6:29 AM EST) Tacrolimus Level 5.1 5.0 - 20.0 ng/mL 03/10/2024 1:48 PM EST [facility] Comment: Additional Information: [...] developed and the performance characteristics determined by [facility]. This confirmation testing has not been cleared or approved by the FDA. The laboratory is regulated under CLIA as qualified to perform high-complexity testing. This test is used for patient testing purposes. It should not be regarded as investigational or for research. Test performed at [facility], [address] [place], [place] ??[address] ? [phone] Ashtyn Leigh MD, PhD - Header Dock Blood Venous blood specimen / Unknown Venipuncture / Unknown 03/08/2024 6:29 AM EST 03/08/2024 7:46 AM EST Catalina Burr MD LAB BLOOD ORDERABLES [place] [address] * (ABNORMAL) Renal function panel (03/08/2024 6:29 AM EST) Sodium 139 133 - 145 mmol/L LAB CHEMISTRY METHOD 03/08/2024 8:58 AM [facility] Potassium 4.5 3.5 - 5.5 mmol/L LAB CHEMISTRY METHOD 03/08/2024 8:58 AM [facility] Chloride 108 96 - 110 mmol/L LAB CHEMISTRY METHOD 03/08/2024 8:58 AM [facility] CO2 20(L) 21 - 32 mmol/L LAB CHEMISTRY METHOD 03/08/2024 8:58 AM [facility] Anion Gap 11 3 - 11 LAB CHEMISTRY METHOD 03/08/2024 8:58 AM [facility] Glucose 93 70 - 100 mg/dL LAB CHEMISTRY METHOD 03/08/2024 8:58 AM [facility] BUN 35(H) 5 - 25 mg/dL LAB CHEMISTRY METHOD 03/08/2024 8:58 AM [facility] Creatinine 3.99(H) 0.50 - 1.10 mg/dL LAB CHEMISTRY METHOD 03/08/2024 8:58 AM [facility] eGFR 12(L) >=60 mL/min/1. 73m2 LAB CHEMISTRY METHOD 03/08/2024 8:58 AM [facility] Comment:Calculation based on the??Chronic Kidney Disease Epidemiology Collaboration (CKD-EPI) equation refit??without adjustment for race. BUN/Creatinine Ratio 8.8 LAB CHEMISTRY METHOD 03/08/2024 8:58 AM EST [facility] Albumin 2.3(L) 3.2 - 5.0 g/dL LAB CHEMISTRY METHOD 03/08/2024 8:58 AM [facility] Calcium 9.0 8.5 - 10.5 mg/dL LAB CHEMISTRY METHOD 03/08/2024 8:58 AM [facility] Phosphorus 3.2 2.5 - 4.5 mg/dL LAB CHEMISTRY METHOD 03/08/2024 8:58 AM [facility] Blood Venous blood specimen / Unknown Venipuncture / Unknown 03/08/2024 6:29 AM EST 03/08/2024 7:46 AM EST Catalina Burr MD LAB BLOOD ORDERABLES [facility] [address] [place] [address], * (ABNORMAL) Complete blood count (03/08/2024 6:29 AM EST) WBC 9.8 4.8 - 10.8 K/mcL LAB HEMETOLOGY METHOD 03/08/2024 8:10 AM [facility] RBC 2.90(L) 3.80 - 4.80 M/mcL LAB HEMETOLOGY METHOD 03/08/2024 8:10 AM [facility] Hemoglobin 7.9(L) 11.5 - 16.0 g/dL LAB HEMETOLOGY METHOD 03/08/2024 8:10 AM [facility] Hematocrit 28.5(L) 35.0 - 47.0 % LAB HEMETOLOGY METHOD 03/08/2024 8:10 AM [facility] MCV 99.3(H) 79.0 - 98.0 FL LAB HEMETOLOGY METHOD 03/08/2024 8:10 AM [facility] MCH 27.5 27.0 - 32.0 pcg LAB HEMETOLOGY METHOD 03/08/2024 8:10 AM EST [facility] MCHC 27.7(L) 32.0 - 37.0 g/dL LAB HEMETOLOGY METHOD 03/08/2024 8:10 AM [facility] RDW 17.2(H) 11.0 - 15.0 % LAB HEMETOLOGY METHOD 03/08/2024 8:10 AM EST [facility] Platelets 299 130 - 400 K/mcL LAB HEMETOLOGY METHOD 03/08/2024 8:10 AM [facility] MPV 11.5(H) 7.0 - 11.0 FL LAB HEMETOLOGY METHOD 03/08/2024 8:10 AM [facility] NRBC 0.0 <1.0 % LAB HEMETOLOGY METHOD 03/08/2024 8:10 AM [facility] NRBC Absolute 0.00 <0.10 K/mcL LAB HEMETOLOGY METHOD 03/08/2024 8:10 AM [facility] Blood Venous blood specimen / Unknown Venipuncture / Unknown 03/08/2024 6:29 AM EST 03/08/2024 7:46 AM EST Catalina Burr MD LAB BLOOD ORDERABLES [facility] [address] [place] [address], documented in this encounter Visit Diagnoses Diagnosis Chronic embolism and thrombosis of unspecified vein Acute kidney failure, unspecified (CMS/HCC) Acute kidney failure, unspecified Type 2 diabetes mellitus without complications (CMS/HCC) documented in this encounter Care Teams Passenger Representative Relationship Specialty Start Date End Date Marita Wetzel DO [address] [place] [address] PCP - General 01/09/23 documented as of this encounter
--- OUTSIDE RECORDS SUMMARY | 2024-05-27 20:22 | XMS_ITS | Encounter Summary ---
Author Organization [facility], [place] [address] Phone Care Team Providers Care Heat Treating Furnace Tender Name Role Phone Marita Wetzel DO Primary Care Provider Unava ilable Encounter Details Date Type Department Care Team (Late st Contact Info) Description 2024 Orders Only [facility] [address] [place] [phone] Srinivas Agrawal MD [address] [place] [address] [place] [phone] Social History Tobacco Use Types Packs/Day Years [...] Support [facility] Vascular Access Center [address] [place] [address] [place] [phone] 06/29/2024 7:30 AM EDT Scheduled Only [facility] [address] [place] [address] [place] [phone] documented as of this encounter Procedures Procedure Name Priority Date/Time Associated Diagnosis Comments HEMATOLOGY Routine 2024 CHEMISTRY Routine 2024 documented in this encounter Results * [facility] (2024) Potassium 5.0 3.5 - 5.1 mEq/L [facility] 2024 05/06/2024 8:1 2 AM EST Narrative [facility] - 05/06/2024 Unless otherwise specified, test(s) performed at: [facility], [address] [place] [address] STEAM BOX HAND: Dwayne Fuentes M.D. For any questions, please call customer service at FREQUENCY:OTHER Resulting Agency Comment Specimen source: Serum Srinivas Agrawal MD LAB BLOOD ORDERABLES Final Result Performing Organization Address [facility] de Phone Number [facility] See order comments or contact performing lab Unknown, [place] * (ABNORMAL) HEMATOLOGY (2024) Hemoglobin 7.4(L) 12.0 - 16.0 g/dL [facility] Hemoglobin x 3 22.2(L) 36.0 - 48.0 % [facility] 2024 05/06/2024 9:3 3 AM EST Narrative [facility] - 05/06/2024 Unless otherwise specified, test(s) performed at: [facility], [address] [place] [address] [address] BOX HAND: Dwayne Fuentes M.D. For any questions, please call customer service at FREQUENCY:OTHER Resulting Agency Comment Specimen source: Blood Srinivas Agrawal MD LAB BLOOD ORDERABLES Final Result Performing Organization Address [facility]/ZIP Co de Phone Number [facility] See order comments or contact performing lab Unknown, [place] documented in this encounter Visit Diagnoses Not on filedocumented in this encounter Care Teams Heat Treating Furnace Tender Relationship Specialty Start Date End Date Marita Wetzel DO [address] [place] [address] PCP - General Family Medicine 11/14/22 documented as of this encounter
--- OUTSIDE RECORDS SUMMARY | 2024-05-27 20:22 | XMS_ITS | Encounter Summary ---
Author Organization [facility], [place] [address] Phone Care Team Providers Care Intermodal Owner Operator Truck Driver Name Role Phone Marita Wetzel DO Primary Care Provider Unava ilable Encounter Details Date Type Department Care Team (Late st Contact Info) Description 05/10/2024 Orders Only [facility] [address] [place] [phone] Srinivas Agrawal MD [address] [place] [address] [place] [phone] Social History Tobacco Use Types Packs/Day Years [...] Support [facility] [address] [place] [address] [place] [phone] 06/29/2024 7:30 AM EDT Scheduled Only [facility] [address] [place] [address] [place] [phone] documented as of this encounter Procedures Procedure Name Priority Date/Time Associated Diagnosis Comments HD KINETICS Routine 05/10/2024 POST CHEMISTRY Routine 05/10/2024 CHEMISTRY Routine 05/10/2024 B-152 IVET LAB RESULTS Routine 05/10/2024 documented in this encounter Results * [facility] [place] Lab Results (05/10/2024) WSTDKT/V 2.3 [facility] eKdrt/V 1.12 [facility] spKt/V Gotch 1.36 [facility] ge Center eKt/V Gotch 1.12 [facility] e Center eNPCR 0.67 [facility] eKt/V ([place]all) 1.16 [facility] nPCR_HD 0.72 [facility] PCR 30.85 [facility] spKt/V (Daugirdas II) 1.39 [facility] Center 05/10/2024 05/10/2024 [facility] Ordering Provider LAB BLOOD ORDERABLES Final Result [facility] Center Contact Performing lab Unknown, [place] * HD KINETICS (05/10/2024) Pathologist [facility] [place] % Urea Reduction 69 65 - 80 % [facility] 05/10/2024 05/13/2024 9:0 0 AM EST Narrative Resulting Agency Comment Specimen source: Plasma Srinivas Agrawal MD LAB BLOOD ORDERABLES Final Result [facility] See order comments or contact performing lab Unknown, [place] * POST CHEMISTRY (05/10/2024) BUN Post Dialysis 15 6 - 19 mg/dL [facility] 05/10/2024 05/13/2024 9:0 0 AM EST Narrative [facility] - 05/13/2024 Unless otherwise specified, test(s) performed at: [address] [facility], [address] [place] [address] MATCH UP WORKER: Dwayne Fuentes M.D. For any questions, please call customer service at FREQUENCY:OTHER Resulting Agency Comment Specimen source: Plasma Srinivas Agrawal MD LAB BLOOD ORDERABLES Final Result Performing Organization Address City/[facility] Co de Phone Number [facility] See order comments or contact performing lab Unknown, [place] * (ABNORMAL) [facility] Chemistry (05/10/2024) BUN 49(H) 6 - 19 mg/dL [facility] 05/10/2024 05/12/2024 12: 10 PM EST Narrative [facility] - 05/12/2024 Unless otherwise specified, test(s) performed at: [facility], [address] [place] [address] MATCH UP WORKER: Dwayne Fuentes M.D. For any questions, please call customer service at FREQUENCY:OTHER Resulting Agency Comment Specimen source: Serum Srinivas Agrawal MD LAB BLOOD ORDERABLES Final Result Performing Organization Address [facility] Co de Phone Number [facility] See order comments or contact performing lab Unknown, [place] documented in this encounter Visit Diagnoses Not on filedocumented in this encounter Care Teams Intermodal Owner Operator Truck Driver Relationship Specialty Start Date End Date Marita Wetzel DO [address] [place] [address] PCP - General Family Medicine 11/14/22 documented as of this encounter
--- OUTSIDE RECORDS SUMMARY | 2024-05-27 20:22 | XMS_ITS | Encounter Summary ---
Author Organization [facility], Address [address] [place] [address] Phone Care Team Providers Care Gasket Notcher Name Role Phone Marita Wetzel DO Primary Care Provider Unava ilable Encounter Details Date Type Department Care Team (Late st Contact Info) Description 06/12/2023 Documentation Only [facility] [address] [place] [phone] [place], [place], [place] [address] [place] [phone] Social History Tobacco Use Types Packs/Day Years [...] Support [facility] [address] [place] [phone] 06/29/2024 7:30 AM EDT Scheduled Only [facility] [address] [place] [phone] documented as of this encounter Visit Diagnoses Not on filedocumented in this encounter Care Teams Gasket Notcher Relationship Specialty Start Date End Date Marita Wetzel DO [address] [place] [address] PCP - General Family Medicine 11/14/22 documented as of this encounter
--- OUTSIDE RECORDS SUMMARY | 2024-05-27 20:22 | XMS_ITS | Encounter Summary ---
Author Organization [facility], Address [address] [place] [address] Phone Care Team Providers Care Benefits Consulting Analyst Name Role Phone Marita Wetzel DO Primary Care Provider Unava ilable Encounter Details Date Type Department Care Team (Late st Contact Info) Description 05/10/2024 Treatment [facility], [address] [place] [phone] Jeanne Bailey MD [address] [place] [address] [place] [address] Social History Tobacco Use Types Packs/Day Years [...] as of this encounter Miscellaneous Notes * Dialysis Note - Jeanne Bailey MD - 05/10/2024 12:00 AM EST Patient: Alix Shrap : 1960 Note Type: Dialysis Rounds-Basic Service Date: 05/10/2024 This patient was personally seen for a basic visit as part of routine monthly dialysis care for end stage renal disease. Attending Content Management Consultant: JEANNE BAILEY MD Dialysis Location: [facility] Schedule: M-W-F Shift: 3 OVERVIEW Patient is stable. COMMENTS: New start with post renal allograft failure. On low dsoe IS currently. Will start slow and increase time of HD over next few sessions. Emaciated and will need to be ran positive. Access working well today. Hopefully patient will feel better with HD. Discussion had with family. Feeling better on HD. Appetite improving. 3:15 for HD now. Run even or positive. HOME MEDICATIONS Current [facility] Outpatient Medications clonidine 0.2 mg/24 hr patch weekly Apply 1 patch to skin once a week as directed. [Change once a week. Always remove the current one before applying new one] dorzolamide-timolol 22.3-6.8 mg/mL drops furosemide 40 mg tablet Take 3 tablet by mouth once a day. [Take 120 mg daily for one week if weight decreased then take three times per week. Changed to three times per week MWF on 01/22 Changed to daily on 01/25] hydralazine 50 mg tablet Take 1 tablet by mouth twice a day as directed. hydroxyzine HCl 25 mg tablet Take 1 tablet by mouth every night as needed. [for itching] lisinopril 40 mg tablet Take 1 tablet by mouth once a day as directed. [take one tablet by mouth daily] minoxidil tablet 2.5 Take 1 tablet by mouth twice a day. mupirocin 2% ointment Apply to affected area once a day as directed. potassium chloride 20 mEq tablet extended release Take 1 tablet by mouth once a day. spironolactone 25 mg tablet Take 1 tablet by mouth twice a day. [Take with 50 mg bid] spironolactone 50 mg tablet Take 1 tablet by mouth twice a day. [increased to 50 daily on 09/18 INCREASED TO 50 BID ON 12/21] Toprol XL 100 mg tablet extended release 24 hr Take 1 tablet by mouth every morning. Velphoro 500 mg tablet,chewable Take 2 tablet by mouth three times a day with meals. [Chew with meals. Add one with snack.] Vitamin D2 50,000 units Take 1 capsule by mouth every four weeks. [take monthly] Current [facility] Allergies Allergen: codeine Reaction: Unknown Allergen: oxycodone Reaction: Unknown DIALYSIS PRESCRIPTION Treatment Data Treatment Date: 05/10/2024 started at: 2:27 PM Dialysate / Machine Temp (prescribed): 36.0*C Dialysate / Machine Temp (actual): 36.0*C BFR (prescribed): 450 BFR (average delivered): 350 DFR (prescribed): Manual 500 DFR (average delivered): 500 Prescribed Time: 03:15 Actual Time: 02:58 EDW (kg): 45.5 Dialyzer: 160NRe Optiflux Dialysate: 2.0 K, 2.50 Ca, 1.0 Mg, 100 Dextrose ([id number]) Sodium: 137 Bicarb: 35 Pre Dialysis Vitals Pre BP Sit: 113/70 Pre Wt (kg): 48.8 EDW Deviation (kg): 3.3 Temp: 96.2*F Post Dialysis Vitals Post BP Sit: 107/53 Post Wt (kg): 47.4 BP AND FLUID ASSESSMENT Post BP Sit 107/53 - 05/10/2024 121/58 - 05/07/2024 124/68 - 2024 Post Wt (kg) 47.4 - 05/10/2024 47.0 - 05/07/2024 46.0 - 2024 EDW (kg) 45.5 - 05/10/2024 45.5 - 05/07/2024 45.5 - 2024 Deviation (kg) 1.9 - 05/10/2024 1.5 - 05/07/2024 0.5 - 2024 ADEQUACY ASSESSMENT Missed Treatments 0 - Last 30 days 0 - Last 60 days spKt/V (Daugirdas II) 1.04 (04/23/24) % Urea Reduction 59 (04/23/24) BUN 44 (04/23/24) 38 (04/20/24) 33 (02/10/24) BUN Post Dialysis 18 (04/23/24) Creatinine 3.62 (04/23/24) 3.26 (04/20/24) 3.61 (02/10/24) Bicarbonate (CO2) 27 (04/30/24) 21 (04/23/24) 17 (04/20/24) Sodium 142 (04/23/24) 143 (04/20/24) 137 (02/10/24) ACCESS ASSESSMENT AVGraft Synthetic - Standard (PTFE) Left Upper Arm Active (In Use) - 04/23/2024 Placed - 01/22/2024 ANEMIA ASSESSMENT Hemoglobin 7.4 (05/05/24) 8.4 (04/28/24) 8.0 (04/23/24) Hgb 6.5 (07/03/23) 7.9 (06/14/23) 7.9 (06/14/23) Iron Saturation (TSat) 28 (04/23/24) 17 (04/20/24) 30 (01/26/24) Ferritin 3,177 (04/23/24) 3,884 (04/20/24) 10,749 (01/26/24) Iron 31 (04/23/24) 19 (04/20/24) 37 (01/26/24) TIBC 111 (04/23/24) 109 (04/20/24) 123 (01/26/24) Reticulocyte Hemoglobin 26.0 (04/23/24) MCV 94 (04/23/24) 94 (04/20/24) 94 (02/10/24) Platelets 193 (04/20/24) 266 (02/10/24) 365 (02/03/24) BMM ASSESSMENT Calcium 8.6 04/23/24 9.0 04/20/24 8.7 02/10/24 Corrected Calcium 9.6 04/23/24 Phosphorus 2.5 04/23/24 2.1 04/20/24 3.0 02/10/24 Phosphorus, Serum 2.6 05/29/23 Calcium Phosphorus Product 22 04/23/24 PTH 63 04/23/24 Vitamin D, 25-OH, Total 48.2 04/23/24 19.2 10/06/23 Magnesium 1.3 04/23/24 1.4 10/06/23 Alkaline Phosphatase 54 04/23/24 Aluminum 31 04/30/24 97 04/23/24 NUTRITION ASSESSMENT Albumin 2.7 04/23/24 2.9 04/20/24 3.1 02/10/24 Potassium 5.0 05/05/24 4.9 04/30/24 3.9 04/23/24 Hemoglobin A1C 5.8 04/23/24 6.1 04/20/24 5.8 02/03/24 ADDITIONAL LABS COMMENTS: 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 INR 1.0 (10/06/23) 1.0 (08/05/23) WBC 9.46 (04/23/24) 11.3 (04/20/24) 9.4 (02/10/24) White Blood Cells 13.6 (07/03/23) 4.4 (06/14/23) 4.4 (06/14/23) Cholesterol 115 (10/06/23) HDL 31 (10/06/23) LDL Calculated 57 (10/06/23) Triglycerides 157 (10/06/23) Hepatitis B Surface Ab 632 (04/23/24) 1,682.0 (04/20/24) 1,959.0 (02/10/24) ADDITIONAL COMMENT COMMENTS: 04/26/24 Patient is stable Medications reviewed Physical Exam Vital signs: reviewed Edema: none Impression Adequacy: KT/V was assessed and the dialysis prescription was adjusted as needed. Access: Dialysis access function is acceptable. Hypertension: Blood pressure control and volume status are at goal. Anemia: Labs reviewed and adjustments to regimen made according to anemia management protocol. Mineral Bone Disease: Labs reviewed. Diet and medication adjustment as per protocol. Nutrition: Labs reviewed. Dietary adjustments made in conjunction with employment educational coord. Transplant: The patient will be re-evaluated for a kidney transplant. Signed by: JEANNE BAILEY MD on 05/11/2024 at 07:13:33 AM documented in this encounter Plan of Treatment Upcoming Encounters Date Type Department Care Team (Late st Contact Info) Description 06/10/2024 11:45 PM EST Clinical Support [facility] [address] [place] [address] [place] [address] 06/29/2024 7:30 AM EDT Scheduled Only [facility] [address] [place] [address] documented as of this encounter Visit Diagnoses Not on filedocumented in this encounter Care Teams Benefits Consulting Analyst Relationship Specialty Start Date End Date Marita Wetzel DO [address] [place] [address] PCP - General Family Medicine 11/14/22 documented as of this encounter
--- OUTSIDE RECORDS SUMMARY | 2024-05-27 20:22 | XMS_ITS | Encounter Summary ---
Author Organization [facility] Address [address] [place] [address] Care Team Providers Care Surgery Attendant Name Role Phone Marita Wetzel Primary Care Provider [phone] Encounter Details Date Type Department Care Team (Late st Contact Info) Description 04/02/2024 Lab Requisition [facility] - Main Lab [address] [place] [phone] Marily Gordillo MD [address] [place] [phone] Chronic embolism and thrombosis of unspecified vein; [...] Date/Time Associated Diagnosis Comments TACROLIMUS LEVEL Routine 04/05/2024 6:56 AM EST Chronic embolism and thrombosis of unspecified vein Acute kidney failure, unspecified (CMS/HCC) COMPLETE BLOOD COUNT Routine 04/05/2024 6:56 AM EST Chronic embolism and thrombosis of unspecified vein Acute kidney failure, unspecified (CMS/HCC) RENAL FUNCTION PANEL Routine 04/05/2024 6:56 AM EST Chronic embolism and thrombosis of unspecified vein Acute kidney failure, unspecified (CMS/HCC) documented in this encounter Results * Tacrolimus level (04/05/2024 6:56 AM EST) Tacrolimus Level 8.6 5.0 - 20.0 ng/mL 04/07/2024 4:26 PM EST [facility] Comment: Additional Information: Toxic Level ?> [...] developed and the performance characteristics determined by [facility]. This confirmation testing has not been cleared or approved by the FDA. The laboratory is regulated under CLIA as qualified to perform high-complexity testing. This test is used for patient testing purposes. It should not be regarded as investigational or for research. Test performed at [facility], [address], [place], [place] ??[address] ? [phone] Ashtyn Leigh MD, PhD - Bottle Machine Operator Blood Venous blood specimen / Unknown Venipuncture / Unknown 04/05/2024 6:56 AM EST 04/05/2024 10:25 AM EST Marily Gordillo MD LAB BLOOD ORDERABLES [facility] [address] [place] [address] * (ABNORMAL) Renal function panel (04/05/2024 6:56 AM EST) Sodium 138 133 - 145 mmol/L LAB CHEMISTRY METHOD 04/05/2024 11:[address] [facility] Potassium 5.0 3.5 - 5.5 mmol/L LAB CHEMISTRY METHOD 04/05/2024 11:[address] [facility] Chloride 107 96 - 110 mmol/L LAB CHEMISTRY METHOD 04/05/2024 11:[address] [facility] CO2 20(L) 21 - 32 mmol/L LAB CHEMISTRY METHOD 04/05/2024 11:[address] [facility] Anion Gap 11 3 - 11 LAB CHEMISTRY METHOD 04/05/2024 11:[address] [facility] Glucose 104(H) 70 - 100 mg/dL LAB CHEMISTRY METHOD 04/05/2024 11:[address] [facility] BUN 56(H) 5 - 25 mg/dL LAB CHEMISTRY METHOD 04/05/2024 11:[address] [facility] Creatinine 4.43(H) 0.50 - 1.10 mg/dL LAB CHEMISTRY METHOD 04/05/2024 11:[address] [facility] eGFR 11(L) >=60 mL/min/1. 73m2 LAB CHEMISTRY METHOD 04/05/2024 11:[address] [facility] Comment:Calculation based on the??Chronic Kidney Disease Epidemiology Collaboration (CKD-EPI) equation refit??without adjustment for race. BUN/Creatinine Ratio 12.6 LAB CHEMISTRY METHOD 04/05/2024 11:[address] [facility] Albumin 1.9(L) 3.2 - 5.0 g/dL LAB CHEMISTRY METHOD 04/05/2024 11:[address] [facility] Calcium 9.0 8.5 - 10.5 mg/dL LAB CHEMISTRY METHOD 04/05/2024 11:52 AM EST [facility] Phosphorus 3.1 2.5 - 4.5 mg/dL LAB CHEMISTRY METHOD 04/05/2024 11:[address] [facility] Blood Venous blood specimen / Unknown Venipuncture / Unknown 04/05/2024 6:56 AM EST 04/05/2024 10:21 AM EST Marily Gordillo MD LAB BLOOD ORDERABLES [facility] [address] [place] [address], * (ABNORMAL) Complete blood count (04/05/2024 6:56 AM EST) WBC 9.2 4.8 - 10.8 K/mcL LAB HEMETOLOGY METHOD 04/05/2024 10:[address] [facility] RBC 2.50(L) 3.80 - 4.80 M/mcL LAB HEMETOLOGY METHOD 04/05/2024 10:[address] [facility] Hemoglobin 6.8(L) 11.5 - 16.0 g/dL LAB HEMETOLOGY METHOD 04/05/2024 10:[address] [facility] Hematocrit 24.8(L) 35.0 - 47.0 % LAB HEMETOLOGY METHOD 04/05/2024 10:[address] [facility] MCV 99.6(H) 79.0 - 98.0 FL LAB HEMETOLOGY METHOD 04/05/2024 10:[address] [facility] MCH 27.3 27.0 - 32.0 pcg LAB HEMETOLOGY METHOD 04/05/2024 10:[address] [facility] MCHC 27.4(L) 32.0 - 37.0 g/dL LAB HEMETOLOGY METHOD 04/05/2024 10:42 AM EST [facility] RDW 16.7(H) 11.0 - 15.0 % LAB HEMETOLOGY METHOD 04/05/2024 10:[address] [facility] Platelets 332 130 - 400 K/mcL LAB HEMETOLOGY METHOD 04/05/2024 10:42 AM EST [facility] MPV 10.2 7.0 - 11.0 FL LAB HEMETOLOGY METHOD 04/05/2024 10:42 AM EST [facility] NRBC 0.0 <1.0 % LAB HEMETOLOGY METHOD 04/05/2024 10:[address] [facility] NRBC Absolute 0.00 <0.10 K/mcL LAB HEMETOLOGY METHOD 04/05/2024 10:[address] [facility] Blood Venous blood specimen / Unknown Venipuncture / Unknown 04/05/2024 6:56 AM EST 04/05/2024 10:26 AM EST Marily Gordillo MD LAB BLOOD ORDERABLES [facility] [address] [place] [address], documented in this encounter Visit Diagnoses Diagnosis Chronic embolism and thrombosis of unspecified vein Acute kidney failure, unspecified (CMS/HCC) Acute kidney failure, unspecified documented in this encounter Care Teams Surgery Attendant Relationship Specialty Start Date End Date Marita Wetzel DO [address] [place] [address] PCP - General 01/09/23 documented as of this encounter
--- OUTSIDE RECORDS SUMMARY | 2024-05-27 20:22 | XMS_ITS | Encounter Summary ---
Author Organization [facility], [place] [address] [place] [address] Phone Care Team Providers Care Conveyor Belt Repairer Name Role Phone Marita Wetzel DO Primary Care Provider Unava ilable Encounter Details Date Type Department Care Team (Late st Contact Info) Description 04/28/2024 Orders Only [facility] [address] [place] [phone] Srinivas Agrawal MD [address] [place] [address] [place] [phone] Social History Tobacco Use Types Packs/Day Years [...] Support [facility] [address] [place] [address] [place] [phone] 06/29/2024 7:30 AM EDT Scheduled Only [facility] [address] [place] [address] [place] [phone] documented as of this encounter Procedures Procedure Name Priority Date/Time Associated Diagnosis Comments HEMATOLOGY Routine 04/28/2024 documented in this encounter Results * (ABNORMAL) HEMATOLOGY (04/28/2024) Hemoglobin 8.4(L) 12.0 - 16.0 g/dL [facility] Hemoglobin x 3 25.2(L) 36.0 - 48.0 % [facility] 04/28/2024 04/29/2024 10: 13 AM EST Narrative [facility] - 04/29/2024 Unless otherwise specified, test(s) performed at: [facility], [address] [place] [address] WARDROBE MISTRESS: Dwayne Fuentes M.D. For any questions, please call customer service at FREQUENCY:OTHER Resulting Agency Comment Specimen source: Blood Srinivas gArawal MD LAB BLOOD ORDERABLES Final Result [facility] See order comments or contact performing lab Unknown, [place] documented in this encounter Visit Diagnoses Not on filedocumented in this encounter Care Teams Conveyor Belt Repairer Relationship Specialty Start Date End Date Marita Wetzel DO [address] [place] [address] PCP - General Family Medicine 11/14/22 documented as of this encounter
--- OUTSIDE RECORDS SUMMARY | 2024-05-27 20:22 | XMS_ITS | Clinical Summary ---
Author Organization [address] Address [address] [place] [address] Phone Care Team Providers Care Tumor Registrar Name Role Phone Marita Wetzel Primary Care Provider [phone]- [phone] Encounters Date Type Department Care Team Description 05/21/2024 Lab Requisition [facility] Lab [address] [place] [phone] Marily Gordillo MD Chronic embolism and thrombosis of unspecified vein; Acute kidney failure, unspecified (CMS/HCC) 05/15/2024 Lab Requisition [facility] Lab [address] [place] [phone] Mraily Gordillo MD Chronic embolism and thrombosis of unspecified vein; Acute kidney failure, unspecified (CMS/HCC) 05/12/2024 Lab Requisition [facility] Lab [address] [place] [phone] Marily Gordillo MD Chronic kidney disease, unspecified; Anemia, unspecified 05/07/2024 Lab Requisition [facility] Lab [address] [place] [phone] Marily Gordillo MD Chronic embolism and thrombosis of unspecified vein; Acute kidney failure, unspecified (CMS/HCC) 2024 Lab Requisition [facility] [address] [place] [phone] Marily Gordillo MD Chronic kidney disease, unspecified; Anemia, unspecified 04/30/2024 Lab Requisition [facility] [address] [place] [address] Marily Gordillo MD Chronic embolism and thrombosis of unspecified vein; Acute kidney failure, unspecified (CMS/HCC) 04/30/2024 Lab Requisition [facility] [address] [place] [phone] Marily Gordillo MD Anemia, unspecified; Chronic embolism and thrombosis of unspecified vein; Acute kidney failure, unspecified (CMS/HCC) 04/29/2024 Lab Requisition [facility] [address] [place] [phone] Marily Gordillo MD Chronic embolism and thrombosis of unspecified vein; Acute kidney failure, unspecified (CMS/HCC) 04/28/2024 Lab Requisition [facility] [address] [place] [phone] Marily Gordillo MD Chronic kidney disease, unspecified; Anemia, unspecified 04/28/2024 Lab Requisition [facility] [address] [place] [phone] Marily Gordillo MD Chronic kidney disease, unspecified; Anemia, unspecified 04/23/2024 Lab Requisition [facility] [address] [place] [phone] Marily Gordillo MD Chronic embolism and thrombosis of unspecified vein; Acute kidney failure, unspecified (CMS/HCC) 04/20/2024 Lab Requisition [facility] [address] [place] [phone] Marily Gordillo MD Chronic kidney disease, unspecified; Anemia, unspecified 04/17/2024 Lab Requisition [facility] [address] [place] [phone] Marily Gordillo MD Chronic embolism and thrombosis of unspecified vein; Acute kidney failure, unspecified (CMS/HCC) 04/17/2024 Lab Requisition [facility] [address] [place] [phone] Catalina Burr MD End stage renal disease (CMS/HCC); Anemia, unspecified 04/10/2024 Lab Requisition [facility] [address] [place] [phone] Marily Gordillo MD Chronic embolism and thrombosis of unspecified vein; Acute kidney failure, unspecified (CMS/HCC) 04/02/2024 Lab Requisition [facility] Lab [address] [place] [phone] Marily Gordillo MD Chronic embolism and thrombosis of unspecified vein; Acute kidney failure, unspecified (CMS/HCC) 03/30/2024 Lab Requisition [facility] [address] [place] [phone] Catalina Burr MD Chronic embolism and thrombosis of unspecified vein; Acute kidney failure, unspecified (CMS/HCC) 03/29/2024 Lab Requisition [facility] Lab [address] [place] [phone] Catalina Burr MD End stage renal disease (CMS/HCC) 03/19/2024 Lab Requisition [facility] [address] [place] [phone] Catalina Burr MD Chronic embolism and thrombosis of unspecified vein; Acute kidney failure, unspecified (CMS/HCC); Type 2 diabetes mellitus without complications (CMS/HCC) 03/15/2024 Lab Requisition [facility] [address] [place] [phone] Catalina Burr MD Acute kidney failure, unspecified (CMS/HCC); Chronic embolism and thrombosis of unspecified vein 03/12/2024 Lab Requisition [facility] Lab [address] [place] [phone] Catalina Burr MD Chronic embolism and thrombosis of unspecified vein; Acute kidney failure, unspecified (CMS/HCC); Type 2 diabetes mellitus without complications (CMS/HCC) 03/05/[address] [facility] [address] [place] [address] Catalina Burr MD Chronic embolism and thrombosis of unspecified vein; Acute kidney failure, unspecified (CMS/HCC); Type 2 diabetes mellitus without complications (CMS/HCC) 03/01/[address] [facility] Lab [address] [place] [phone] Catalina Burr MD End stage renal disease (CMS/HCC); Type 2 diabetes mellitus without complications (CMS/HCC) 02/25/[address] [facility] [address] [place] [phone] Catalina Burr MD Chronic embolism and thrombosis of unspecified vein; Acute kidney failure, unspecified (CMS/HCC) from Last 3 Months Immunizations Name Administration Dates Next Due Moderna SARS-CoV-2 COVID-19, mRNA, LNP-S, preservative free 06/22/2020,05/25/2020 Social History Tobacco Use Types Packs/Day Years Used Date Smoking Tobacco: Never Assessed Sex and Gender Information Value Date Recorded Sex Assigned at Not on file Gender Identity Not on file Sexual Orientation Not on file Plan of Treatment Health Maintenance Due Date Last Done Comments Breast Cancer Screening 1960 Diabetes: Annual Foot Exam 1970 Diabetes: Annual Retina Eye Exam 1970 Cervical Cancer Screening: Pap Smear 1981 RSV Immunization Patients 60+ Years Old (1 - Risk 60-74 years 1-dose series) 2020 Zoster Vaccines (1 of 2) 11/14/2021 09/19/2021, 0210/2021 Colorectal Cancer Screening: Colonoscopy 05/16/2023 HIV Screening 05/16/2023 Medicare Annual Wellness Visit 05/16/2023 Social Influencers of Health Screening 05/16/2023 Depression Screening 10/09/2023 10/08/2022 COVID-19 Vaccine ( season) 2023 02/01/2022, 06/22/2020, 05/25/2020 Diabetes: Annual Urine Albumin-Creatinine Ratio (uACR) 03/01/2024 Diabetes: Blood Sugar Control Test (HGBA1C) 10/18/2024 04/20/2024, 04/20/2024, 02/03/2024, Additional history exists Diabetes: Annual GFR (Glomerular Filtration Rate) 05/10/2025 05/10/2024, 05/03/2024, 04/26/2024, Additional history exists Hypertension/CHF/CAD Annual BMP Blood Test 05/10/2025 05/10/2024, 05/03/2024, 04/26/2024, Additional history exists Pneumococcal Vaccine: Pediatrics (0 to 5 Years) and At-Risk Patients (6 to 64 Years) (4 of 4 - PPSV23 or PCV20) 05/03/2026 05/03/2021, 01/05/2020, 08/13/2010 Cholesterol Screening (Lipid Panel) 10/05/2028 10/06/2023, 11/26/2021 DTaP,Tdap,and Td Vaccines (3 - Td or Tdap) 01/19/2032 01/18/2022, 01/23/2011 Varicella Vaccines Aged Out 09/19/2021, 05/28/2021 No longer eligible based on patient's age to complete this topic Hepatitis B Vaccines Completed 10/02/2021, 10/01/2021, 08/03/2021, Additional history exists Influenza Vaccine Completed 02/12/2024, , 01/23/2022, Additional history exists Hepatitis C Screening Completed 04/20/2024 , 04/20/2024, 02/10/2024, Additional history exists HIB Vaccines Aged Out No longer eligi ble based on patient's age to complete this topic HPV Vaccines Aged Out No longer eligi ble based on patient's age to complete this topic Hepatitis A Vaccines Aged Out No long er eligible based on patient's age to complete this topic IPV Vaccines Aged Out No longer eligi ble based on patient's age to complete this topic MMR Vaccines Aged Out No longer eligi ble based on patient's age to complete this topic Meningococcal ACWY Vaccine Aged Out N o longer eligible based on patient's age to complete this topic RSV Immunization Patients Under 20 months Aged Out No longer eligible based on patient's age to complete this topic Procedures Procedure Name Priority Date/Time Associated Diagnosis Comments RENAL FUNCTION PANEL Routine 05/10/2024 5:50 AM EST Chronic embolism and thrombosis of unspecified vein Acute kidney failure, unspecified (CMS/HCC) TACROLIMUS LEVEL Routine 05/10/2024 5:50 AM EST Chronic embolism and thrombosis of unspecified vein Acute kidney failure, unspecified (CMS/HCC) RENAL FUNCTION PANEL Routine 05/03/2024 6:09 AM EST Chronic embolism and thrombosis of unspecified vein Acute kidney failure, unspecified (CMS/HCC) TACROLIMUS LEVEL Routine 05/03/2024 6:09 AM EST Chronic embolism and thrombosis of unspecified vein Acute kidney failure, unspecified (CMS/HCC) IRON Routine 05/03/2024 6:09 AM EST Anemia, unspecified Chronic embolism and thrombosis of unspecified vein Acute kidney failure, unspecified (CMS/HCC) FERRITIN Routine 05/03/2024 6:09 AM EST Anemia, unspecified Chronic embolism and thrombosis of unspecified vein Acute kidney failure, unspecified (CMS/HCC) RENAL FUNCTION PANEL Routine 04/26/2024 6:18 AM EST Chronic embolism and thrombosis of unspecified vein Acute kidney failure, unspecified (CMS/HCC) COMPREHENSIVE METABOLIC PANEL Routine 04/22/2024 7:09 AM EST Chronic kidney disease, unspecified Anemia, unspecified COMPLETE BLOOD COUNT Routine 04/22/2024 7:09 AM EST Chronic kidney disease, unspecified Anemia, unspecified TACROLIMUS LEVEL Routine 04/19/2024 6:21 AM EST Chronic embolism and thrombosis of unspecified vein Acute kidney failure, unspecified (CMS/HCC) RENAL FUNCTION PANEL Routine 04/19/2024 6:21 AM EST Chronic embolism and thrombosis of unspecified vein Acute kidney failure, unspecified (CMS/HCC) COMPLETE BLOOD COUNT Routine 04/19/2024 6:21 AM EST Chronic embolism and thrombosis of unspecified vein Acute kidney failure, unspecified (CMS/HCC) TACROLIMUS LEVEL Routine 04/17/2024 5:33 AM EST End stage renal disease (CMS/HCC) Anemia, unspecified RETICULOCYTE COUNT Routine 04/17/2024 5: 33 AM EST End stage renal disease (CMS/HCC) Anemia, unspecified COMPREHENSIVE METABOLIC PANEL Routine 04/17/2024 5:33 AM EST End stage renal disease (CMS/HCC) Anemia, unspecified COMPLETE BLOOD COUNT Routine 04/17/2024 5:33 AM EST End stage renal disease (CMS/HCC) Anemia, unspecified TACROLIMUS LEVEL Routine 04/05/2024 6:56 AM EST Chronic embolism and thrombosis of unspecified vein Acute kidney failure, unspecified (CMS/HCC) RENAL FUNCTION PANEL Routine 04/05/2024 6:56 AM EST Chronic embolism and thrombosis of unspecified vein Acute kidney failure, unspecified (CMS/HCC) COMPLETE BLOOD COUNT Routine 04/05/2024 6:56 AM EST Chronic embolism and thrombosis of unspecified vein Acute kidney failure, unspecified (CMS/HCC) IRON Routine 03/31/2024 9:23 AM EST Chronic embolism and thrombosis of unspecified vein Acute kidney failure, unspecified (CMS/HCC) FERRITIN Routine 03/31/2024 9:23 AM EST Chronic embolism and thrombosis of unspecified vein Acute kidney failure, unspecified (CMS/HCC) TACROLIMUS LEVEL Routine 03/29/2024 6:53 AM EST End stage renal disease (CMS/HCC) RENAL FUNCTION PANEL Routine 03/29/2024 6:53 AM EST End stage renal disease (CMS/HCC) COMPLETE BLOOD COUNT Routine 03/29/2024 6:53 AM EST End stage renal disease (CMS/HCC) TACROLIMUS LEVEL Routine 03/22/2024 6:50 AM EST [...] Type 2 diabetes mellitus without complications (CMS/HCC) TACROLIMUS LEVEL Routine 03/15/2024 8:20 AM EST Chronic embolism and thrombosis of unspecified vein Acute kidney failure, unspecified (CMS/HCC) Type 2 diabetes mellitus without complications (CMS/HCC) RENAL FUNCTION PANEL Routine 03/15/2024 8:20 AM EST Chronic embolism and thrombosis of unspecified vein Acute kidney failure, unspecified (CMS/HCC) Type 2 diabetes mellitus without complications (CMS/HCC) TACROLIMUS LEVEL Routine 03/08/2024 6:29 AM EST [...] Type 2 diabetes mellitus without complications (CMS/HCC) TACROLIMUS LEVEL Routine 03/01/2024 6:56 AM EST End stage renal disease (CMS/HCC) Type 2 diabetes mellitus without complications (CMS/HCC) RENAL FUNCTION PANEL Routine 03/01/2024 6:56 AM EST End stage renal disease (CMS/HCC) Type 2 diabetes mellitus without complications (CMS/HCC) COMPLETE BLOOD COUNT Routine 03/01/2024 6:56 AM EST End stage renal disease (CMS/HCC) Type 2 diabetes mellitus without complications (CMS/HCC) TRAVEL PHLEBOTOMY FEE Routine 02/25/2024 6:30 AM EST Chronic embolism and thrombosis of unspecified vein Acute kidney failure, unspecified (CMS/HCC) TACROLIMUS LEVEL Routine 02/25/2024 6:30 AM EST Chronic embolism and thrombosis of unspecified vein Acute kidney failure, unspecified (CMS/HCC) from Last 3 Months Results * Tacrolimus level (05/10/2024 5:50 AM EST) Only the most recent of11 resultswithin the time period is included. Tacrolimus Level 7.1 5.0 - 20.0 ng/mL [...] developed and the performance characteristics determined by [facility]. This confirmation testing has not been cleared or approved by the FDA. The laboratory is regulated under CLIA as qualified to perform high-complexity testing. This test is used for patient testing purposes. It should not be regarded as investigational or for research. Test performed at [facility], [address] [place], [place] ??[address] ? [phone] Ashtyn Leigh MD, PhD - Plant Maintenance Worker Blood Venous blood specimen / Unknown Venipuncture / Unknown 05/10/2024 5:50 AM EST 05/10/2024 9:58 AM EST Marily Gordillo MD LAB BLOOD ORDERABLES [facility] [address] [place] [address] * (ABNORMAL) Renal function panel (05/10/2024 5:50 AM EST) Only the most recent of10 resultswithin the time period is included. Sodium 135 133 - 145 mmol/L LAB CHEMISTRY METHOD 05/10/2024 11:45 AM EST [facility] Potassium 3.8 3.5 - 5.5 mmol/L LAB CHEMISTRY METHOD 05/10/2024 11:45 AM [facility] Chloride 96 96 - 110 mmol/L LAB CHEMISTRY METHOD 05/10/2024 11:45 AM [facility] CO2 28 21 - 32 mmol/L LAB CHEMISTRY METHOD 05/10/2024 11:45 AM [facility] Anion Gap 11 3 - 11 LAB CHEMISTRY METHOD 05/10/2024 11:45 AM [facility] Glucose 215(H) 70 - 100 mg/dL LAB CHEMISTRY METHOD 05/10/2024 11:45 AM [facility] BUN 45(H) 5 - 25 mg/dL LAB CHEMISTRY METHOD 05/10/2024 11:45 AM [facility] Creatinine 3.47(H) 0.50 - 1.10 mg/dL LAB CHEMISTRY METHOD 05/10/2024 11:45 AM [facility] eGFR 14(L) >=60 mL/min/1. 73m2 LAB CHEMISTRY METHOD 05/10/2024 11:45 AM [facility] Comment:Calculation based on the??Chronic Kidney Disease Epidemiology Collaboration (CKD-EPI) equation refit??without adjustment for race. BUN/Creatinine Ratio 13.0 LAB CHEMISTRY METHOD 05/10/2024 11:45 AM [facility] Albumin 1.7(L) 3.2 - 5.0 g/dL LAB CHEMISTRY METHOD 05/10/2024 11:45 AM [facility] Calcium 8.4(L) 8.5 - 10.5 mg/dL LAB CHEMISTRY METHOD 05/10/2024 11:45 AM [facility] Phosphorus 2.1(L) 2.5 - 4.5 mg/dL LAB CHEMISTRY METHOD 05/10/2024 11:45 AM [facility] Blood Venous blood specimen / Unknown Venipuncture / Unknown 05/10/2024 5:50 AM EST 05/10/2024 9:58 AM EST Marily Gordillo MD LAB BLOOD ORDERABLES [facility] [address] [place] [address], * (ABNORMAL) Iron (05/03/2024 6:09 AM EST) Only the most recent of3 resultswithin the time period is included. Pathologist [facility] [place] Iron 35(L) 40 - 150 mcg/dL LAB CHEMISTRY METHOD 05/03/2024 10:59 AM EST [facility] Blood Venous blood specimen / Unknown Venipuncture / Unknown 05/03/2024 6:09 AM EST 05/03/2024 9:29 AM EST Marily Gordillo MD LAB BLOOD ORDERABLES Performing Organization Address City/[facility]/ZIP Co de Phone Number [facility] [address] [place] [address], * (ABNORMAL) Ferritin (05/03/2024 6:09 AM EST) Only the most recent of3 resultswithin the time period is included. [facility] Ferritin 2,737(H) 8 - 252 ng/mL LAB CHEMISTRY METHOD 05/03/2024 10:59 AM EST [facility] Blood Venous blood specimen / Unknown Venipuncture / Unknown 05/03/2024 6:09 AM EST 05/03/2024 9:29 AM EST Marily Gordillo MD LAB BLOOD ORDERABLES [facility] [address] [place] [address], [place] [phone] * (ABNORMAL) Complete blood count (04/22/2024 7:09 AM EST) Only the most recent of8 resultswithin the time period is included. [facility] WBC 8.2 4.8 - 10.8 K/mcL LAB HEMETOLOGY METHOD 04/22/2024 10:44 AM [facility] RBC 2.80(L) 3.80 - 4.80 M/[facility] LAB HEMETOLOGY METHOD 04/22/2024 10:44 AM [facility] Hemoglobin 7.8(L) 11.5 - 16.0 g/dL LAB HEMETOLOGY METHOD 04/22/2024 10:44 AM [facility] Hematocrit 27.7(L) 35.0 - 47.0 % LAB HEMETOLOGY METHOD 04/22/2024 10:44 AM [facility] MCV 97.5 79.0 - 98.0 FL LAB HEMETOLOGY METHOD 04/22/2024 10:44 AM [facility] MCH 27.5 27.0 - 32.0 pcg LAB HEMETOLOGY METHOD 04/22/2024 10:44 AM [facility] MCHC 28.2(L) 32.0 - 37.0 g/dL LAB HEMETOLOGY METHOD 04/22/2024 10:44 AM [facility] RDW 16.5(H) 11.0 - 15.0 % LAB HEMETOLOGY METHOD 04/22/2024 10:44 AM [facility] Platelets 189 130 - 400 K/[facility] LAB HEMETOLOGY METHOD 04/22/2024 10:44 AM [facility] MPV 10.7 7.0 - 11.0 FL LAB HEMETOLOGY METHOD 04/22/2024 10:44 AM [facility] NRBC 0.0 <1.0 % LAB HEMETOLOGY METHOD 04/22/2024 10:44 AM [facility] NRBC Absolute 0.00 <0.10 K/[facility] LAB HEMETOLOGY METHOD 04/22/2024 10:44 AM [facility] Blood Venous blood specimen / Unknown Venipuncture / Unknown 04/22/2024 7:09 AM EST 04/22/2024 9:43 AM EST Marily Gordillo MD LAB BLOOD ORDERABLES [facility] [address] [place] [address], * (ABNORMAL) Comprehensive metabolic panel (04/22/2024 7:09 AM EST) Only the most recent of2 resultswithin the time period is included. Sodium 143 133 - 145 mmol/L LAB CHEMISTRY METHOD 04/22/2024 11:50 AM [facility] Potassium 3.5 3.5 - 5.5 mmol/L LAB CHEMISTRY METHOD 04/22/2024 11:50 AM [facility] Chloride 112(H) 96 - 110 mmol/L LAB CHEMISTRY METHOD 04/22/2024 11:50 AM [facility] CO2 23 21 - 32 mmol/L LAB CHEMISTRY METHOD 04/22/2024 11:50 AM [facility] Anion Gap 8 3 - 11 LAB CHEMISTRY METHOD 04/22/2024 11:50 AM [facility] Glucose 135(H) 70 - 100 mg/dL LAB CHEMISTRY METHOD 04/22/2024 11:50 AM [facility] BUN 43(H) 5 - 25 mg/dL LAB CHEMISTRY METHOD 04/22/2024 11:50 AM [facility] Creatinine 3.79(H) 0.50 - 1.10 mg/dL LAB CHEMISTRY METHOD 04/22/2024 11:50 AM [facility] eGFR 13(L) >=60 mL/min/1. 73m2 LAB CHEMISTRY METHOD 04/22/2024 11:50 AM [facility] Comment:Calculation based on the??Chronic Kidney Disease Epidemiology Collaboration (CKD-EPI) equation refit??without adjustment for race. BUN/Creatinine Ratio 11.3 LAB CHEMISTRY METHOD 04/22/2024 11:50 AM [facility] Calcium 8.6 8.5 - 10.5 mg/dL LAB CHEMISTRY METHOD 04/22/2024 11:50 AM [facility] AST (SGOT) 9(L) 10 - 42 unit/L LAB CHEMISTRY METHOD 04/22/2024 11:50 AM [facility] ALT (SGPT) 9(L) 10 - 60 unit/L LAB CHEMISTRY METHOD 04/22/2024 11:50 AM [facility] Alkaline Phosphatase 59 42 - 121 unit/L LAB CHEMISTRY METHOD 04/22/2024 11:50 AM [facility] Total Protein 5.8(L) 6.0 - 8.0 g/dL LAB CHEMISTRY METHOD 04/22/2024 11:50 AM [facility] Albumin 2.0(L) 3.2 - 5.0 g/dL LAB CHEMISTRY METHOD 04/22/2024 11:50 AM [facility] Total Bilirubin 0.3 0.0 - 1.4 mg/dL LAB CHEMISTRY METHOD 04/22/2024 11:50 AM [facility] Blood Venous blood specimen / Unknown Venipuncture / Unknown 04/22/2024 7:09 AM EST 04/22/2024 9:42 AM EST Marily Gordillo MD LAB BLOOD ORDERABLES [facility] [address] [place] [address], * (ABNORMAL) Reticulocyte count (04/17/2024 5:33 AM EST) Retic Ct Abs 0.050 0.030 - 0.090 M/mcL LAB HEMETOLOGY METHOD 04/17/2024 10:42 AM EST [facility] Retic Ct Pct 1.8(H) 0.7 - 1.7 % LAB HEMETOLOGY METHOD 04/17/2024 10:42 AM [facility] Immature Retic Fract 24.7(H) 2.3 - 15.9 % LAB HEMETOLOGY METHOD 04/17/2024 10:42 AM [facility] Reticulocyte Hemoglobin 28.3(L) >29.0 pcg LAB HEMETOLOGY METHOD 04/17/2024 10:42 AM [facility] Blood Venous blood specimen / Unknown Venipuncture / Unknown 04/17/2024 5:33 AM EST 04/17/2024 9:33 AM EST Catalina Burr MD LAB BLOOD ORDERABLES Performing Organization Address City/[facility]/ZIP Co de Phone Number [facility] [address] [place] [address], * Travel phlebotomy fee (02/25/2024 6:30 AM EST) [facility] TRAVEL PHLEBOTOMY FEE Completed 02/25/2024 11:01 AM EST [facility] Blood Venous blood specimen / Unknown Venipuncture / Unknown 02/25/2024 6:30 AM EST 02/25/2024 10:25 AM EST Catalina Burr MD LAB BLOOD ORDERABLES [facility] [address] [place] [address], [place] [phone] from Last 3 Months Care Teams Tumor Registrar Relationship Specialty Start Date End Date Marita Wetzel DO [address] [place], [place] PCP - General 01/09/23
--- OUTSIDE RECORDS SUMMARY | 2024-05-27 20:22 | XMS_ITS | Continuity of Care Document ---
Author Organization [place] - [facility], [place] 3rd floor Address [address] [place] [address] Assessment Encounter Date Assessment Date Assessment LastModified by Organization Details LastModified Time 05/10/2024 05/10/2024 Findings and Studies were discussed [...] Portions of this note were generated by [employer]. Errors of office technologist may occur- please feel free to reach out with any corrections or clarifications you may require. Time spent face to face with patient: 15 minutes Copy sent with patient. [email or web address] Not available 05/10/2024 12:39:52 Plan of Treatment Reminders Order Date Submit Date Provider Last Modified By Organization Details Last Modified Time Details Appointments RECHECK 15 2024 10:30Scottie Cristobal MD Not available Not available Not available Lab None recorded . Referral None recorded . Procedures None recorded . Surgeries None recorded . Imaging XR, hip + pelvis, unilater al, 2 or 3 view - 311 2v left hip and ap pelvis global 2024 025 [email or web address] [facility], [address], [place], [address], 05/10/2024 13:03:52 Medication Orders None recorded . Patient TargetsNo targets recorded. Patient InstructionsNo instructions recorded. Reason for Referral None Reported. Results Created Date Observation Date Name Description Value Unit Range Abnormal Flag Note LastModifiedBy Organization Detail LastModifiedTime 05/10/1905/10/2024 XR, hip + pelvi s, unila teral , 2 or 3 view http:/ [email or web address] ?Encry pted=s hAaTro YD8dLq bEUv6g %2BXZw aYqtaq 0bqfl% 2Fg9IQ a4ajBk vP9nXo QUaueC m3YtLR FvZlgJ JJ8mAn HZtai3 2a0383 AC0Kqb 3uAUqe kKiQtr MwF INTERFACE [facility] [address], [place], [address], 05/10/2024 11:31:26 05/10/19 25 05/10/2024 XR, hip + pelvi s, unila teral , 2 or 3 view http:/ [email or web address] ?Encry pted=s hAaTro YD8dLq bEUv6g %2BXZw aYqtaq 0bqfl% 2Fg9IQ a4ajBk vP9nXo QUaueC m3YtLR FvZlgJ JJ8mAn HZtai3 4h4140 AC0Kqb 3uAUqe kKiQtr MwF INTERFACE [facility] [address], [place], [address], 05/10/2024 11:31:28 Result Notes None recorded. Problems Name Problem SNOMED Code Status Onset Date Resolution Date Notes Provider Name and Address Organization Details Recorded Time Fracture of neck of left femur Active 024 Bayron Nguyễn PA-C [address], [place], [address] , [facility] 4 08:12:45 Closed fracture of hip [id number] Active 025 JOSEPH DANIEL [facility] 5 11:00:31 Problem Notes None recorded. Procedures Surgical History Date Name Laterality Status Provider Name and Address Organization Details Recorded Time 4 procedure on hip completed VINI MARVIN [facility] 05/10/2024 11:30:03 Imaging Results None recorded. Procedure Notes None recorded. Medical Equipment None Reported. Allergies Allergen ID Allergen Name Allergen Category Reaction Reaction Severity Criticality Documentation Date Start Date Code Code System Note Provider Name and Address Organization Details Recorded Time 101699 codeine medicatio n Not available Not available Not available 05/10/2024 2670 RxNorm VINI MARVIN [facility] 5 11:23:18 692090 oxycodone medicatio n Not available Not available Not available 05/10/2024 7804 RxNorm VINI MARVIN [facility] 5 11:23:22 Medications Name Sig Start Date Stop [...] t Available Vitals Date Recorded Body height Provider Name an d Address Organization Details Last Updated DateTime 05/10/2024 167.64 cm VINI MARVIN [place] - [facility] 05/10/2024 11:22:50 Social History None recorded. Functional Status None recorded. Mental Status None recorded. Family History Nothing Reported. Medical History Condition Response Allergies/Hayfever N Coronary Artery Disease N Anxiety/Depression Y Breathing or lung disorders N Emphysema N Nerve Disorders N Thyroid Problems N COPD N Pacemaker N Anemia Y Kidney/Bladder Problems Y Vascular Disease N Heart Trouble N Heart Attack ([place]) N Gastrointestinal Disease N Cholesterol Y Diabetes [...] SNOMED-CT Code Diagnosis ICD10 Code Diagnosis Note [id number] MD MISHA [facility] 3rd floor [address] [place] [place] [address] 05/10/2024 11:04:50 05/10/2024 12:44:22 Closed fracture of hip [id number] S72.002A Health Concerns Section Related Observation LastModified by Organization Detai ls LastModified Time None Recorded Concern Status LastModified by Organization Details LastModified Time None Recorded Payers Encounter Date Sequence Insurance Name Policy Number Policy Engle Covered Member ID Engle Member ID Guarantor Name 05/10/2024 1 [place]ICARE [place]: [employer] Alix [employer] [id number] Alix Sharp Notes Date Note Type Note Provider Name and Address Organization Details Recorded Time 05/10/2024 text/html CHIEF COMPLAINT: - Follow-up evaluation [...] 02-11-2024. 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 05/10/2024 12:40:43 OBGyn Episode No OBEpisode recorded.
--- OUTSIDE RECORDS SUMMARY | 2024-05-27 20:22 | XMS_ITS | Encounter Summary ---
Author Organization [facility] Address [address] [place] [address] Care Team Providers Care Electrostatic Painter Name Role Phone Marita Wetzel DO Primary Care Provider [phone] Encounter Details Date Type Department Care Team (Late st Contact Info) Description 03/15/2024 Lab Requisition [facility] - Main Lab [address] [place] [phone] Catalina Burr MD [address] [place] [address] Acute kidney failure, unspecified (CMS/HCC); Chronic embolism and thrombosis of unspecified vein Social History Tobacco Use Types Packs/Day Years Used Date Smoking Tobacco: Never Assessed Sex and Gender Information Value Date Recorded Sex Assigned at Not on file Gender Identity Not on file Sexual Orientation Not on file documented as of this encounter Plan of Treatment Not on file documented as of this encounter Visit Diagnoses Diagnosis Acute kidney failure, unspecified (CMS/HCC) Acute kidney failure, unspecified Chronic embolism and thrombosis of unspecified vein documented in this encounter Care Teams Electrostatic Painter Relationship Specialty Start Date End Date Marita Wetzel DO [address], [place] PCP - General 01/09/23 documented as of this encounter
--- OUTSIDE RECORDS SUMMARY | 2024-05-27 20:22 | XMS_ITS | Encounter Summary ---
Author Organization [facility], Address [address] [place] [address] Phone Care Team Providers Care Shop Estimator Name Role Phone Marita Wetzel DO Primary Care Provider Unava ilable Reason for Visit * Reason Comments Med Refill Encounter Details Date Type Department Care Team (Late Contact Info) Description 01/04/2021 Refill [facility] [address] [place] [phone] Bernardo oDty MD [address] [place] [phone] Social History Tobacco Use Types Packs/Day Years [...] Support [facility] [address] [place] [address] 06/29/2024 7:30 AM EDT Scheduled Only [facility] [address] [place] [phone] documented as of this encounter Visit Diagnoses Not on filedocumented in this encounter Care Teams Shop Estimator Relationship Specialty Start Date End Date Marita Wetzel DO [address] [place] [address] PCP - General Family Medicine 11/14/22 documented as of this encounter
--- OUTSIDE RECORDS SUMMARY | 2024-05-27 20:22 | XMS_ITS | Encounter Summary ---
Author Organization [facility], Address [address] [place] [address] Phone Care Team Providers Care Pants Closer Name Role Phone Marita Wetzel DO Primary Care Provider Unava ilable Reason for Visit * Reason Comments Med Refill Encounter Details Date Type Department Care Team (Late Contact Info) Description 05/08/2021 Refill [facility] [address] [place] [phone] Bernardo Doty MD [address] [place] [phone] Social History Tobacco Use Types Packs/Day Years [...] Support [facility] [address] [place] [address] 06/29/2024 7:30 AM EDT Scheduled Only [facility] [address] [place] [phone] documented as of this encounter Visit Diagnoses Not on filedocumented in this encounter Care Teams Pants Closer Relationship Specialty Start Date End Date Marita Wetzel DO [address] [place] [address] PCP - General Family Medicine 11/14/22 documented as of this encounter
--- OUTSIDE RECORDS SUMMARY | 2024-05-27 20:22 | XMS_ITS | Continuity of Care Document ---
Author Organization [facility] ter Address [address] [place] [id number] Support Name Relationship Address Phone ARMIN BAILEY sibling Unknown Unavailabl e JOSE G SHARP child Unknown Unavailable WEST, GRETA Personal Relationship Unknown Unava ilable OCASIO, GRETA F Personal Relationship Unknown Unavailable OCASIO WEST, GRETA Personal Relationship Unknown Unavailable WEST, SUNNY spouse Unknown Unavailable OCASIO WEST, GRETA Personal Relationship Unknown Unavailable WEST, L Personal Relationship Unknown Unavai lable WEST III, SUNNY ASHKAN Personal Relationship Unknow n Unavailable CHIRAG, SUNNY spouse Unknown Unavailable CHIRAG, SUNNY Personal Relationship Unknown Unava ilable CHIRAG, SUNNY child Unknown Unavailable CHIRAG, SUNNY Personal Relationship Unknown Unava ilable CHIRAG, SUNNY child Unknown Unavailable CHIRAG, SUNNY spouse Unknown Unavailable WEST, SUNNY spouse Unknown Unavailable OCASIO, GRETA F Personal Relationship Unknown Unavailable OCASIO, GRETA F F Personal Relationship Unknown Unavailable SUNNY SHARP C Personal Relationship Unknown Ramona vailable CHIRAG, SUNNY spouse Unknown Unavailable CHIRAG, SUNNY spouse Unknown Unavailable CHIRAG ALFRED child Unknown Unavailable 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 Role Phone Marita Wetzel DO Primary Care Physician Encounter [facility] Date(s): 05/12/24 - 05/21/[address] [address]- Encounter Diagnosis Multifocal pneumonia(Final) - 05/12/24 Discharge Disposition: A-D/C Home Attending Physician: Mohinder Duffy MD Admitting Physician: Christin Araujo DO Referring Physician: Not on Staff, Referring MD [...] influenza virus vaccine, inactivated 01/23/11 Oliver rded [id number] bivalent booster vax 02/01/22 Recorded tetanus-diphtheria toxoids [...] Date: 02/20/24 Status: Ordered Repeat number: 1 Benadryl 25 [...] times a day before meals and bedtime, PRN, Refills 0, Maintenance, Dyspepsia, 03/28/24 11:46:00 AM EST, Partial fill upon patient request if the [...] oral tablet 25 mg, Tablet, By Mouth, 05/21/24 9:00:00 AM EST Start Date: 05/21/24 Stop Date: 05/21/24 Status: Completed Repeat number: 1 Dilaudid 4 [...] Maintenance, 10/26/23 9:56:00 AM EDT, ER Tablet, [facility], Partial fill upon patient request if [...] Date: 03/31/24 Status: Ordered Repeat number: 1 Nephro Vitamins oral tablet 1 tablet, By Mouth, Daily, # 30 tablet, 0 Refills, Maintenance, 11/23/23 10:39:00 AM EDT, [facility]/pharmacy #[id number], Partial fill upon patient request if [...] 45.0 Unit: tablet Repeat number: 1 Procrit 07446 u/ml injectable solution See Instructions, Subcutaneous Injection, [...] 02/20/24 Status: Ordered Repeat number: 1 tacrolimus 4 [...] Confirmed Active Nausea & vomiting Confirmed Active 1campath induction Results Radiology Reports * Exam Date Time Procedure Performing Provider Status 05/17/24 4:40 PM C-Arm < 1 Hour Tiffanie Akers; Auth (V erified) Notes: (C-Arm < 1 Hour) Reason For Exam: ESRD FISTULAGRAM RESULT: C-Arm < 1 Hour C-Arm < 1 Hour INDICATION: Reason: ESRD FISTULAGRAM COMPARISONS: None TECHNIQUE: Fluoroscopy support was provided. There was no radiologist in attendance. FLUOROSCOPY TIME: 1 minute, 27.4 seconds EXPOSURE: 1.3306 Gycm2 (Dose Area Product) TECHNOLOGIST TIME: 43 minutes FINDINGS: Fluoroscopy support was provided. There was no radiologist in attendance. IMPRESSION: See above. WSN: [id number] Ordering Physician: Son Perrin Dictated By: Christopher Pastrana MD Dictated Date/Time: 05/18/24 4:39 pm Reviewed By: Christopher Pastrana MD Signed By: Christopher Pastrana MD Signed Date/Time: 05/18/24 4:39 pm Transcribed By: TAYLOR Transcribed Date/Time: 05/18/24 3:27 pm * Exam Date Time Procedure Performing Provider Status 05/14/24 11:29 AM IR End of Case Report Mo dified IR End of Case Report * Exam Date Time Procedure Performing Provider Status 05/14/24 11:29 AM IR Dialysis Fistulogram Auth (Verified) Notes: (IR Dialysis Fistulogram) Reason For Exam: Other: IR Dialysis Fistulogram Patient: GRETA SHARP Study Date: 05/14/2024 Performing: Rach Winchester MD Referring: : 1960 Age: 64 Gender: FEMALE Indication: ESRD, on HD via left upper extremity graft, failed renal transplant allograft. No pulsatile thrill in left upper extremity graft since last night. Technique: Limited sonogram of the graft was performed in the IRB. Based on the findings, it was determined that a declot/thrombectomy needed to be performed to restore access for hemodialysis. Informed consent was obtained. The moi of the graft loop was prepped with chlorhexidine. Ten mg of tPA was instilled in divided doses towardsthe arterial and venous anastomoses under ultrasound guidance to initiate a lyse and wait thrombectomy. The patient was brought into the IR room. The left upper extremity graft was prepped and draped in standard sterile fashion. Lidocaine was administered for local anesthesia. Using ultrasound guidance, a micropuncture needle was used to access the graft towards the arterial anastomosis. The exchange dilator was replaced over a guidewire with a short 6 Fr sheath. Contrast was injected to assess patency of the anastomosis and inflow. A second access was then made in similar fashion towards the venous outflow. Imaging was performed from the mid graft to the central veins to assess the venous outflow. The patient was systemically anticoagulated with 50 units of heparin per kilogram. Over a Glidewire, a 7 x 60 mm balloon was advanced to the venous outflow stenosis. This was plastied for 90 seconds. The balloon was then used to macerate clot in the outflow limb with serial inflations and deflation of the balloon. Attention was then turned to the arterial inflow. Clot in the arterial side of the graft was macerated with the balloon. The DIRECTOR OF ACQUISITIONS balloon was then advanced across the occluded arterial anastomosis. The occluded anastomosis was plastied open. The balloon was then used to pull the arterial plug into the graft and thrombectomize the graft from the arterial anastomosis down towards the sheaths. The balloon was then reintroduced into the venous sheath and maceration of was performed. Injection of contrast was performed, showing improvement in inflow but persistent outflow occlusion due to residual thrombus. A ceiling cleaner XT was introduced into the outflow sheath and used to macerate thrombus in the outflow of the graft. It was then at used to clean up residual thrombus on the upstream side of the graft towards the arterial inflow. Completion arteriography was performed. The sheath was decannulated. Hemostatic sutures were placed at both access sites. Hemostasis was obtained using manual compression. Completion duplex sonography of the graft was performed to confirm patency, flow, and hemostasis at the cannulation sites. Findings: Sonography demonstrates a completely thrombosed left upper extremity graft. Following tPA lysis, there was improvement in the volume of thrombus on the venous outflow side (essentially flattened). There was persistent occlusion of the arterial side of the graft due to thrombus /plug at the arterial anastomosis. After angioplasty of a high-grade stenosis at the venous anastomosis, there was improvement in the outflow. After angioplasty and removal of the plug at the arterial anastomosis, there was mormonism of flow in the graft up to the cannulation sites (residual thrombus around the sheaths restricted flow at that point) . Following additional mechanical thrombectomy of the outflow, there was full mormonism of flow throughout the graft. During the procedure, 2 foci of extravasation wre noted, one near the cannulation site for this procedure, and another at the previous dialysis access site. Hemostasis obtained with manual compression at both sites. Completion sonography demonstrated patency of the entire graft, albeit with some mild residual narrowing at the venous anastomosis. Impression: Successful thrombectomy of the clotted left upper extremity brachial?brachial graft. estimated blood loss 25 ml's Specimens/samples: no specimens or samples were sent for this procedure [facility] instructions sent in envelope with the patient Fluoroscopy time and dose Total Fluoro Time: 10.4 mins Total dose 8 mGy Total DAP 218.70 - ?Gy/m2 Contrast used Contrast used: IsoVue_300 120 Local Anesthetic Lidocaine 1% 1 ml's SQ Lidocaine 1% 1 ml's SQ Moderate sedation was provided From 11:57:36 to 13:40:21 Moderate Sedation Agent Dose Route Time By Fentanyl 25 mcg IV 11:57:30 SP Versed 0.5 mg IV 11:57:36 SP Fentanyl 25 mcg IV 12:19:59 SP Versed 0.5 mg IV 12:20:05 SP Fentanyl 25 mcg IV 12:46:45 SP Versed 0.5 mg IV 12:46:49 SP Fentanyl 25 mcg IV 13:06:12 Signed By Rach Winchester MD On 05/14/2024 2:13:24 PM Rach Winchester MD Dictated By: Rach Winchester MD Dictated Date/Time: 05/14/24 11:29 a Reviewed By: Rach Winchester MD Signed By: Rach Winchester MD Signed Date/Time: 05/14/24 11:29 am Transcribed By: AGUSTIN Transcribed Date/Time: 05/14/24 11:29 am * Exam Date Time Procedure Performing Provider Status 05/12/24 4:22 PM Chest Portable Tiffanie Akers; Auth (V erified) Notes: (Chest Portable) Reason For Exam: Shortness of Breath RESULT: Chest Portable Chest Portable Hx of Present Illness: Pt is coming from [facility] when staff reports AMS,Patient is supposedto be at dialysis today and is too weak to go. Facility is sending patient to ED for dialysis. Pt is awake oriented x3 for EMS. Staff at facility said she was altered because sh; Reason: Shortness ofBreath; Clinical Question(s): CHF COMPARISON: 02/14/2024 FINDINGS: No change in the right IJ Port-A-Cath. Large area of right perihilar airspace disease and consolidation Significant left perihilar airspace disease and groundglass. Small right pleural effusion. IMPRESSION: Multifocal pneumonia is favored over pulmonary edema given the large area of right perihilar airspace disease and consolidation. Milder but still significant left perihilar airspace disease and groundglass. Small right pleural effusion Follow-up exam is recommended to document resolution of the above-described findings. WSN: [id number] Ordering Physician: Gabriela Reeves Dictated By: Nelson Rosales MD Dictated Date/Time: 05/12/24 4:41 pm Reviewed By: Nelson Rosales MD Signed By: Nelson Rosales MD Signed Date/Time: 05/12/24 4:41 pm Transcribed By: TAYLOR Transcribed Date/Time: 05/12/24 4:39 pm Vital Signs Most recent to oldest [Reference Range]: 1 2 3 Height 160 cm (05/21/24 2:46 PM) 160 cm (05/21/24 11:48 AM) 160 cm (05/21/24 6:13 AM) Weight 51.7 kg (05/17/24 2:35 PM) 51.7 kg (05/15/24 10:38 PM) 45.6 kg (05/12/24 11:00 PM) Oxygen Saturation [94-100 %] 100 % (05/21/24 2:46 PM) 95 % (05/21/24 11:48 AM) 100 % (05/21/24 6:13 AM) Pulse Rate [55-90 bpm] 66 bpm (05/21/24 2:46 PM) 67 bpm (05/21/24 11:48 AM) 66 bpm (05/21/24 7:50 AM) Body Mass Index [18.5-24.99 kg/m2] 20.2 kg/m2 (05/17/24 2:35 PM) 20.2 kg/m2 (05/15/24 10:38 PM) 17.81 kg/m2 *L* (05/12/24 11:00 PM) Blood Pressure [90-138/55-84 mm Hg] 120/57mm Hg (05/21/24 2:46 PM) 131/66mm Hg (05/21/24 11:48 AM) 149/64mm Hg *H* (05/21/24 7:50 AM) Respiratory Rate [16-30 br/min] 20 br/min (05/21/24 2:46 PM) 22 br/min (05/21/24 11:48 AM) 16 br/min (05/21/24 6:13 AM) Temperature [96.8-100.4 DegF] 97.7 DegF (05/21/24 2:46 PM) 98.1 DegF (05/21/24 11:48 AM) 98.1 DegF (05/21/24 6:13 AM) Liters per Minute 6 L/min (05/17/24 4:45 PM) Mode of Delivery (Oxygen) Room air (05/21/24 2:46 PM) Room air (05/21/24 11:48 AM) Room air (05/21/24 6:13 AM) Blood pressure sites Arm, right (05/21/24 2:46 PM) Arm, right (05/21/24 11:48 AM) Arm, right (05/21/24 6:13 AM) Temperature Route Oral (05/21/24 2:46 PM) Oral (05/21/24 11:48 AM) Oral (05/21/24 6:13 AM) Dry Weight 45.6 kg (05/12/24 11:00 PM) Social History Social History Type Response Smoking Status Never (less than 100 in lifetime) entered on: 01/10/23 Sex Sex Representation Female (finding) Consult note * Rabia Sepulveda: PERFORM, MODIFY Event Display: Consultation Note Authored Date: [id number] Patient: ??GRETA SHARP ? Age:??64 Years?Sex:??Female?:??1960?? Chief Complaint Pt is coming from [facility] when staff reports AMS,Patient is supposed to be at ??dialysis today and is too weak to go. Facility is sending patient to ED for dialysis. Pt is awake oriented x3 for EMS. Staff at [facility] said she was altered because sh History of Present Illness Reason for consult:?? ? Dementia ?? Referring physician:?? Dr. Brady ?? Source of Information/reliability:?? Chart, , son ?? History of Present Illness:?? 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 with confusion and weakness.?? Work-up revealed Leukocytosis??16.7 and underwent a chest x-ray.?? Chest x-ray showed the presence of multifocalpneumonia and a small right pleural effusion.?? She was admitted and started on antibiotics.?Nephrology was consulted for assistance with the management of her ESRD and HD needs.?? Subsequently??developed acute graft dysfunction during dialysis and received transfusion, fistulogram planned for today.? Geriatrics Consulted to assess for dementia diagnosis.?? She carries no formal diagnosis of this.? Spoke with and son Alfred who were at the bedside.?reports patient??has haddifficulty with??mood changes (described as irritability) and intermittent??hallucinations??since at least 2022 and possibly??previous to this.?? Describes??significant worsening after she fell in January 2024??sustaining hip fracture. ?? reports that??following this she became intermittently more confused which he??feels was related to??medications (in particular pain medications related to fracture).?? Describes??at times her seeing things such as smoke??in the room etc.??but that??this would come and go and she would have moments of clarity.?? Overall,??he feels she has??declined.??Has been at rehab??for her hip fracture??and he reports recently??this week??saw the orthopedic??provider and follow-up.?? He is uncertain whether or not she had ever been worked up for her cognitiveimpairment and whether??a formal diagnosis has been made. ??He is interested in having her tested . ?? states that patient??was clear as a timmons about 5 years ago??without cognitive difficulties. ??States she??had been on home dialysis??around 2020 and had undergone a kidney transplant in 2021??but??medically declined after this.?? Of note, it was difficult to obtain detailed history from family as well. ?? I called and spoke with the nurse??at [facility]??rehab facility??who knows the patient well (Elizabeth)??provided collateral history. ??Elizabeth ??states patient has been with the facility off and on for several rehab stays since??February. ??States during her??time??with the facility patient??has??not displayed any??significant cognitive impairment??and in fact??has scored??well on formal??standardized nursing cognitive assessment forms (scored??14 out of 15??on the BIMS Brief Interview for Mental Status-on??April 15, 2024??which is a quarterly??nursing assessment score???this is a normal score).?States there were no previous concerns for her cognition??except on the day of transfer back to [facility] on??May 12, 2024.?? RN also reported on the day of transfer, she became confusedand had refused HD.? Elizabeth??states patient??had been??working with the rehab team??and had been??making significant progress. ??States she had recently been advanced from??toe-touch weightbearing to??weightbearing as tolerated.?? States she had been working with therapy and getting out of bed every day,??and was in fact due to be discharged to home??on May 13.?? Functionally: She required??mild set up??with upper body??dressing and grooming??and was??ambulating 50 feet contact- guard with a walker??at the time??of transfer back to [facility].?Elizabeth did state however that the patient had??poor??appetite and had been losing significant amounts of weight??(approximately 15 pounds over the course of 2 months).?? States patient chronically??felt nauseous and had a decline in her??kidney function as well.?Elizabeth does report that the patient??would??go to??hemodialysis??to??a facility in [place] and her would transport her??to??dialysis??using a transport chair??and personal??vehicle and??at times, she would??accompany him to his appointments at the ID ( had insisted that it wasnecessary she accompany him to his medical appointments??for unclear reasons and that he had reported she was his base filler). ?? Review of [facility] records:??Prior PCP note from April??seventh 2023 reviewed in [facility] in which there was no mention of cognitive impairment dementia??or other??mood disorder.?? Patient does have a history??according to notes of??failure to thrive in 2022??requiring PEG tube placement??for brief period of time??with subsequent removal??several months later according to PCP notes. ? Social history:??Patient??was born in [place] and went to??college in [place] studying business.?? 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 ??Has 3 sons.?? No history of alcohol??smoking or substance use according to the??family.?? They live in a 2family house on the first??floor with??4 steps to enter the residence.?? Everything is on [address]?? Spouse, son and adult brother living in the home.?? Per SNF RN: one son with developmental disability.? Family history:??No family history of cognitive impairment according to the??. ??Mother?? of natural causes in her late 70s, father age 50 of a job related accident. ??She has??3??brothers and 1 sister all alive and well including 1 older brother??and??none of them have cognitive impairment. ? Encounter with patient at bedside:??Patient seen at the bedside today??just prior to??her procedure. ?? at the bedside. ??Patient??was??calm??and pleasant??and was a fair historian.?Stated she felt that her memory was improving??but acknowledged she had been having some recent difficultie s .?Was able to describe in vague terms??of her recent??stay at [facility]??but stated that magda never gotten out of the bed which is in contrast??to??history obtained from the nurse. ??Acknowledges??that her appetite has been poor and she has lost??a significant amount of weight. ?? 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 Respiratory:??No shortness of breath, cough or sputum production. Cardiovascular:??No chest pain, chest pressure or chest discomfort. No palpitations or pedal edema. Gastrointestinal:Chronic nausea, + loose stool Genitourinary:??No burning micturition. No urinary frequency or incontinence. Neurologic:??No headache, dizziness, syncope, unilateral weakness, ataxia, numbness or tingling in the extremities.?? Musculoskeletal:??No muscle pain, back pain, joint pain or stiffness. Hematologic/Lymphatics:??No bleeding or bruising. No painful lymph nodes. Skin: lesion right thigh, lump Endocrine:??No reports of sweating. No cold or heat intolerance. No polyuria or polydipsia. 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 TMIN:??97.4?F?? TMAX:??97.5?F?? HR:??60??(Peripheral)?? RR:??17?? BP:??154/69?? SpO2:??96%? Gen - alert NAD, thin and frail?? 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 Work-up revealed multifocal pneumonia and a small right pleural effusion for which antibiotics were initiated.?? Over course, she has had difficulty with her HD access.? It appears that she has had past difficulty with weight loss/FTT and required PEG tube ixqprroiv08/11/23 for this.?? She has been at rehab facility for most of March 2024 and from 04/13-05/12/24 and there were no reported concerns of cognitive impairment per RN during their assessment. She does carry diagnosis of mood disorder and was previously on sertraline and hydroxyzine for this.??It is possible that current confusion is, in part, related to resolving delirium. ?? On current exam she appears quite thin with loss of muscle mass.? Recommendations: ?? ? Work-up needed due to weight loss and prior need of PEG for FTT. Patient may benefit from more formal evaluation of cognition once acute medical issues have stabilize/resolved if she does not return to her cognitive baseline.?? PCP can refer to [facility] at [address] [place] [address] for comprehensive testing. Social work consult recommended-family needs support Nutrition involved given weight loss Recommend PT and OT reconsult: states he wants to take her home from here, unclear if this is safe ? MIND ??At risk for delirium - likely multifactorial due to - ??age, change in environment,??metabolic derangements, infection - Please try non pharmacological interventions first for delirium -??frequent reorientation/redirection/reassurance, encourage family visits/calls - adequate control of pain - monitor for urinary retention, constipation - sleep hygiene (bright light in day, dim at night, limit VS checks/interruptions at night time) - encourage oral hydration and nutrition - window side bed if possible - engage during the daytime so they sleep more at night - out of bed to chair during the daytime - 1:1 sitter if needed -??please avoid restraints as they worsen delirium - Please avoid benzos, antihistamines, anticholinergics ?? #Cognitive Impairment- see above? MATTER MOST #Advance Directives Health Care Proxy:?? Code Status:?? Full code, may benefit from addressing overall GOC??given??frailty ? #Discharge Planning - Please f/u case management for placement and arranging services.? Thank you for referral, please page Geriatrics Inpatient Consult Service if we can provide further assistance in patient care. ? PLEASE NOTE: This note was created in part, with voice recognition software.?? Every effort was made to check??this document for accuracy however, occasionally there are unintended errors that result from the use of this technology including typographical errors and other formatting irregularities. ?? For clarification about this note's content,??please contact me directly.? Total Time Spent I personally spent a total of _ 140 minutes, including both ehma-iv-lkvr and rfq-xpis-up-face time on the date of the encounter, addressing the above diagnoses. Activities performed in this time include chart review, obtaining / reviewing history, performing amedically necessary evaluation, documentation and Care CoordinationD/w RN, son, ? Problem List/Past Medical History Ongoing Anemia of [...] Metabolic acidosis Mood disorder Nausea & vomiting Procedure/Surgical History ???Percutaneous skeletal fixation of femoral fracture, proximal end, neck (02/11/2024)???EGD - esophagogastroduodenoscopy (09/17/2023)???Colonoscopy (04/17/2020) Medications Inpatient Acetaminophen Tablet, 650 mg, By Mouth, Every 4 hours, PRN carvedilol 25 mg oral tablet, 25 mg, By Mouth, 2 times a day ceFAZolin Inj, 1 Gm, IV Push, Once Dilaudid 4 mg oral tablet, 4 mg, By Mouth, Every 4 hours, PRN Docusate Sodium Capsule, 100 mg= 1 capsule, By Mouth, 2 times a day, PRN Heparin Flush 100 units/mL Inj, 500 units= 5 mL, IV Push, Every 30 days, PRN Heparin Flush 100 units/mL Inj, 500 units= 5 mL, IV Push, Once, PRN Heparin Inj, 5000 units= 1 mL, Subcutaneous Injection, 3 times a day Insulin LISPRO Sliding Scale, 2-10 units, Subcutaneous Injection, 3 times a day before meals isosorbide mononitrate 30 mg oral tablet, extended release, 30 mg, By Mouth, Daily in AM magnesium oxide 400 mg oral tablet, 400 mg, By Mouth, 2 times a day Melatonin Tablet, 3 mg, By Mouth, Daily at bedtime, PRN MiraLax Powder, 17 Gm= 1 pack/packet, By Mouth, Daily, PRN mycophenolic acid 360 mg oral delayed release tablet, 360 mg, By Mouth, 2 times a day NaCL 0.9% Flush, 3 mL, IV Push, Every 8 hours NaCL 0.9% Flush, 3 mL, IV Push, Every 8 hours, PRN NaCL 0.9% Flush, 10 mL, IV Push, Every 30 days, PRN NaCL 0.9% Flush, 10 mL, IV Push, Every hour, PRN NaCL 0.9% Flush, 10 mL, IV Push, Every hour, PRN Nephrocap Capsule, 1 capsule, By Mouth, Daily pantoprazole 40 mg oral delayed release tablet, 40 mg, By Mouth, Daily predniSONE 5 mg oral tablet, 7.5 mg, By Mouth, Daily Robitussin DM Liquid, 10 mL, By Mouth, Every 4 hours, PRN Senna Tablet, 8.6 mg= 1 tablet, By Mouth, 2 times a day, PRN sertraline 25 mg oral tablet, 25 mg, By Mouth, Daily Simethicone Tablet, 80 mg, Chew, 3 times a day, PRN sodium bicarbonate 650 mg oral tablet, 1300 mg, By Mouth, 2 times a day Tacrolimus XR Tablet, 10 mg, By Mouth, Daily before breakfast thiamine 100 mg oral tablet, 100 mg, By Mouth, Daily Zofran Inj, 4 mg, IV Push, Every 6 hours, PRN Zosyn Extended IVPB, 3.375 Gm, IVPB, Every 12 hours Home acetaminophen 325 mg oral tablet, 650 mg, By Mouth, Every 6 hours, PRN AmLODipine Tablet, 10 mg, By Mouth, Daily Benadryl 25 mg oral capsule, 25 mg= 1 capsule, By Mouth, 2 times a day, PRN Carafate 1 gm oral tablet, 1 Gm, By Mouth, 3 times a day before meals and bedtime carvedilol 25 mg oral tablet, 25 mg= [...] 30 mg, By Mouth, Daily in AM magnesium oxide 400 mg oral tablet, 400 mg, By Mouth, 2 times a day mycophenolic acid 360 mg oral delayed release tablet, 360 mg, By Mouth, 2 times a day Nephro Vitamins oral tablet, 1 tablet, By Mouth, Daily pantoprazole 40 mg oral delayed release tablet, 40 mg= 1 tablet, By Mouth, Daily predniSONE 5 mg oral tablet, 7.5 mg= 1.5 tablet, By Mouth, Daily Procrit 76135 u/ml injectable solution, See Instructions sertraline 25 mg oral tablet, 25 mg= 1 tablet, By Mouth, Daily sodium bicarbonate 650 mg oral tablet, 1300 mg, By Mouth, 2 times a day tacrolimus 1 mg oral tablet, extended release, 2 mg, By Mouth, Daily before breakfast tacrolimus 4 mg oral tablet, extended release, 8 mg, By Mouth, Daily before breakfast Allergies codeine??(FAINTING/HIVES) oxyCODONE Social History Tobacco Use: Never (less than 100 in lifetime). Immunizations Vaccine Date Status influenza virus vaccine, inactivated 02/12/2024 Given influenza virus vaccine, inactivated 02/26/2023 Given Comments : Early/Late Reason: Other : ??administered when patient said it was ok to give influenza virus vaccine, inactivated - Not Given Comments : Patient Refuses [id number] bivalent booster vax 02/01/2022 Recorded influenza virus vaccine, inactivated 01/23/2022 Recorded tetanus-diphtheria toxoids (Td) 01/18/2022 Recorded hepatitis B adult vaccine 10/02/2021 Recorded hepatitis B adult vaccine 10/01/2021 Recorded Varicella Virus Vaccine 09/19/2021 Recorded hepatitis B adult vaccine 08/03/2021 Recorded hepatitis B adult vaccine 07/04/2021 Recorded hepatitis B adult vaccine 05/31/2021 Recorded Varicella Virus Vaccine 05/28/2021 Recorded pneumococcal 23-valent vaccine 05/03/2021 Recorded influenza virus vaccine, inactivated 02/14/2021 Recorded SARS-CoV-2 (COVID-19) mRNA-1273 vaccine 06/22/2020 Recorded SARS-CoV-2 (COVID-19) mRNA-1273 vaccine 05/25/2020 Recorded pneumococcal 13-valent vaccine 01/05/2020 Recorded influenza virus vaccine, inactivated 03/09/2019 Recorded influenza virus vaccine, inactivated 02/12/2018 Recorded influenza virus vaccine, inactivated 03/04/2017 Recorded hepatitis B adult vaccine 03/04/2017 Recorded hepatitis B adult vaccine 05/09/2016 Recorded influenza virus vaccine, inactivated 04/11/2016 Recorded hepatitis B adult vaccine 04/11/2016 Recorded influenza virus vaccine, inactivated 01/30/2015 Recorded influenza virus vaccine, inactivated 03/04/2014 Recorded influenza virus vaccine, inactivated 01/23/2011 Recorded tetanus/diphtheria/pertussis, acel(Tdap) 01/23/2011 Recorded pneumococcal 23-valent vaccine 08/13/2010 Recorded Lab Results Test Name Test Result Date/Time Vitamin B12 Level 347 pg/mL 05/13/2024 08:14 EST Folic Acid Level 18.4 ng/mL 05/14/2024 04:46 EST TSH 1.09 uIU/mL 05/13/2024 08:14 EST Event Name?? Event Result?? Date/Time?? Abs. Baso 0 k/mm3 05/16/24 Abs. Eo 0.1 k/mm3 05/16/24 Abs. Imm Gran 0.6 k/mm3 05/16/24 Abs. Lymph 0.6 k/mm3??Low 05/16/[address] [place] 0.7 k/mm3 05/16/24 Abs. Neut 12 k/mm3??High 05/16/24 Abs. NRBC 0 k/mm3 05/16/24 Abs. NRBC 0 k/mm3 05/16/24 Anion Gap 13 mmol/L 05/17/24 Baso % 0.1 % 05/16/24 Bicarbonate Level 27 mmol/L 05/17/24 BUN 52 mg/dL??High 05/17/24 C. Difficile Toxin by PCR NEGATIVE 05/15/24 Calcium 9.2 mg/dL 05/17/24 Chloride 100 mmol/L 05/17/24 Creatinine-Blood 4.36 mg/dL??High 05/17/24 Eos % 0.4 % 05/16/24 Est Creatinine Clearance 9.38 mL/min 05/17/24 Estimated GFR Creatinine 11 ML/MIN/1.73 M2 05/17/24 GI PCR, Adenovirus F 40/41 NEGATIVE 05/15/24 GI PCR, Astrovirus NEGATIVE 05/15/24 GI PCR, Campylobacter NEGATIVE 05/15/24 GI PCR, Cryptosporidium NEGATIVE 05/15/24 GI PCR, Cyclospora cayetanensis NEGATIVE 05/15/24 GI PCR, Entamoeba histolytica NEGATIVE 05/15/24 GI PCR, Enteroaggregative E coli NEGATIVE 05/15/24 GI PCR, Enteropathogenic E coli NEGATIVE 05/15/24 GI PCR, Enterotoxigenic E coli NEGATIVE 05/15/24 GI PCR, Giardia lamblia NEGATIVE 05/15/24 GI PCR, Norovirus GI/GII NEGATIVE 05/15/24 GI PCR, Plesiomonas shigelloides NEGATIVE 05/15/24 GI PCR, Rotavirus A NEGATIVE 05/15/24 GI PCR, Salmonella NEGATIVE 05/15/24 GI PCR, Sapovirus NEGATIVE 05/15/24 GI PCR, Eysyq-lxckg-nemjyvtdg E coli NEGATIVE 05/15/24 GI PCR, Shigella/Enteroinvasive E coli NEGATIVE 05/15/24 GI PCR, Vibrio NEGATIVE 05/15/24 GI PCR, Vibrio cholerae NEGATIVE 05/15/24 GI PCR, Yersinia enterocolitica NEGATIVE 05/15/24 Glucose Level 105 mg/dL??High 05/17/24 Glucose, POC 118 mg/dL??High 05/17/24 Hct 23.6 %??Low 05/17/24 Hgb 7 Gm/dL??Low 05/17/24 Imm Gran 4.4 % 05/16/24 Lymph % 4 %??Low 05/16/24 Magnesium 2 mg/dL 05/17/24 MCH 26.3 pg??Low 05/16/24 MCH 26.5 pg??Low 05/16/24 MCHC 29.5 Gm/dL??Low 05/16/24 MCHC 29.7 Gm/dL??Low 05/16/24 MCV 89.1 femtoliters 05/16/24 MCV 89.4 femtoliters 05/16/24 [place] % 5.3 % 05/16/24 MPV 10.9 femtoliters 05/16/24 MPV 10.8 femtoliters 05/16/24 Neut % 85.8 %??High 05/16/24 Nucleated RBC (Automated) 0 #/100 WBC'S 05/16/24 Nucleated RBC (Automated) 0 #/100 WBC'S 05/16/24 Phosphorus 2.6 mg/dL 05/16/24 Platelet Count 268 k/mm3 05/16/24 Platelet Count 273 k/mm3 05/16/24 Potassium 4.4 mmol/L 05/17/24 RBC 2.66 m/mm3??Low 05/16/24 RBC 2.64 m/mm3??Low 05/16/24 RBC Available PT 05/15/24 RBC Unit ID [id number] 05/15/24 RDW-SD 57.1 femtoliters??High 05/16/24 RDW-SD 56.9 femtoliters??High 05/16/24 Sodium 140 mmol/L 05/17/24 WBC 13.8 k/mm3??High 05/16/24 WBC 13.9 k/mm3??High 05/16/24 ? Diagnostic Results (08/11/2023 18:[address] Head/Brain W/O Contrast) ? Result type:?CT Head/Brain W/O Contrast Result date:?August 11, 2023 18:23 EDT Result status:?Auth (Verified) Result title:?CT Head/Brain W/O Contrast Performed by:?Pratima Carlson MD on August 11, 2023 18:37 EDT Verified by:?Pratima Carlson MD on August 11, 2023 18:37 EDT Encounter info:?[id number], [facility], Disch IP, 08/11/2023 - 08/28/2023 ?? * Final Report * ?? Reason For Exam Trauma ?? RESULT: CT Head/Brain W/O Contrast CT Head/Brain W/O Contrast, CT Cervical Spine W/O Contrast? INDICATION: Hx of Present Illness: Patient reports increasing generalized weakness, dizziness, N V D x 5 days.; Reason: Trauma; Clinical Question(s): Other:; Hemorrhage ?? TECHNIQUE: Noncontrast head CT using axial technique was reconstructed in axial and coronal planes.Noncontrast spiral CT through the cervical spine was formatted in 3 planes. Automatic tube modulation was used for the cervical spine and iterative dose reconstruction was used for both the head and cervical spine to optimize scan parameters and image quality. ? CTDIvol Body: 8.60 mGy, ??DLP Body: 247 mGy*cm. ? CTDIvol Head: 39.90 mGy, DLP Head: 671 mGy*cm. ? COMPARISON: 01/30/2023. ?? FINDINGS:? Tool Grinding Machine Operator View Findings, Lines and Tubes: None. ?? BRAIN AND EXTRA-AXIAL SPACES: No parenchymal hemorrhage, midline shift, or mass effect. Singer-white matter differentiation is wellpreserved. No acute infarct. ?? Ventricles, sulci, and basilar cisterns are normal.? Mild low-density white matter changes. ?? No subarachnoid hemorrhage. No subdural or epidural collection. ?? CALVARIUM, SKULL BASE, AND SOFT TISSUES: No fractures or suspicious bony lesions.? Mucoperiosteal thickening within ethmoid air cells, left maxillary, right sphenoid sinus. Ethmoid air cells are clear. ?? Visualized orbits and globes are intact.? The extracranial soft tissues are unremarkable. ?? CERVICAL SPINE:?? No fracture. No acute osseous abnormalities. ?? Normal alignment. No locked or perched facet. Mild multilevel degenerative disc space narrowing andend plate irregularity. ?? OTHER BONES:?? No acute abnormality. ?? CERVICAL SOFT TISSUES AND LUNG APICES:?? Normal soft tissues. Visualized lung apices are clear. ?? IMPRESSION: ?? No acute abnormality of the head or cervical spine. [1] Images L buttock [1]??CT Head/Brain W/O Contrast; Aldo HERRERA, Pratima 08/11/2023 18:23 EDT * Alton HERRERA, [place]: PERFORM Event Display: Consult Authored Date: [id number] Patient: ??GRETA SHARP ? Age:??64 Years?Sex:??Female?:??1960?? Chief Complaint/Reason for Consult Left upper extremity AV fistula thrombosis History of Present Illness Greta is a 64-year-old female with a history of??end-stage renal disease status post DDKT??with failed renal allograft??currently receiving dialysis via left upper extremity AV fistula, GERD, hypertension, hyperlipidemia, diabetes type 2??who was admitted to the??medicine team for fatigue and weakness on 05/12.?? Unfortunately??her left upper extremity AV fistula clotted, she went to IR for thrombectomy on 05/14 with successful evaluation of clot.?? She underwent dialysis later that night at which point the fistula clotted again.?? She is currently being treated medically??and states that??she has no symptoms of fluid overload??or feels the need for dialysis. ??She has no pain. ??She has been sleeping well. ??She has been eating well without nausea or vomiting. ??She has no pain or numbness in the left upper extremity.?? She has no shortness of breath or chest pain. ??Does not feel fluid overloaded. Review of Systems 12 point ROS completed. Negative unless otherwise stated in HPI/subjective. Physical Exam Vitals & Measurements T:??97.3?F?? HR:??63??(Peripheral)?? RR:??18?? BP:??136/72?? SpO2:??98%?? HT:??160??cm?? WT:??51.7??kg?? BMI:??20.2?? GENERAL: No acute distress. Non-toxic. Well appearing and interactive. HEENT: Normocephalic. Atraumatic. Trachea midline. CHEST: Right chest port in place without surrounding erythema or drainage. RESPIRATORY: Equal and symmetric chest rise bilaterally; no increased work of breathing. On room air. MUSCULOSKELETAL: Moving all extremities equally. No edema. LUE AV fistula without palpable pulse orthrill. Distally has palpable radial pulse. No erythema or ecchymosis. Sutures in place from IR procedure. SKIN: Warm and well perfused. Intact skin turgor. No edema noted on exam. NEURO: AOx3 Assessment/Plan Greta Sharp is a 64-year-old female with a failed renal transplant allograft (2021) currently requiring end-stage renal disease on hemodialysis Friday, Friday, Friday??who underwent a thrombectomy with IR on 05/14 with recurrent thrombosis of her fistula. ??Fistula created January 2024. Transplant surgery has been peripherally following.?? She has been hemodynamically stable and states that she does not feel fluid overloaded or that she needs dialysis currently. ??She has no concerns at thispoint. ??She has been made n.p.o. and consented for the OR on Friday for possible thrombectomy. ??She is on the add-on list??with the understanding that she may also be going to IR suite for thrombectomy. ??If in the case IR does not get to her procedure and we are available with OR timing we will take her??to the operating room for thrombectomy. ?? Plan: - NPO at [place] for OR/IR on Friday - On the add on board for OR on Friday if IR is unable to do thrombectomy - Renal following for dialysis needs ? Patient discussed with Dr. Perrin Please page [phone] with questions and concerns. 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 Mood disorder Procedure/Surgical History Percutaneous skeletal fixation of femoral fracture, proximal end, neck: 02/11/24 EGD - esophagogastroduodenoscopy: 09/17/23 Colonoscopy: 04/17/20 DDKT 2021 Fistula creation Home Medications Acetaminophen: 650 mg, By Mouth, Every 6 hours, PRN (Pain , Moderate), not to exceed 4000 mg/day Amlodipine: 10 mg, By Mouth, Daily Carvedilol: 25 mg = 1 tablet, By Mouth, 2 times a day DiphenhydrAMINE: 25 mg = 1 capsule, By Mouth, 2 times a day, PRN (for itching) Docusate: 100 mg = 1 tablet, By Mouth, 2 times a day, PRN (Constipation) Epoetin Bassem: See Instructions, Subcutaneous Injection Hydromorphone: 4 mg = 1 tablet, By Mouth, Every 4 hours, PRN (for pain) Insulin Lispro: 2-10 units, Subcutaneous Injection, 3 times a day before meals, 150 - 199 ??2 units??Call if less than 70, 200 - 249 ??4 units, 250 - 299 ??6 units, 300 - 349 ??8 units, 350 - 399 ??10 units ??Call if greater than 400 Isosorbide Mononitrate: 30 mg, By Mouth, Daily in AM Magnesium Oxide: 400 mg, By Mouth, 2 times a day Multivitamin: 1 tablet, By Mouth, Daily Mycophenolate Sodium: 360 mg, By Mouth, 2 times a day Pantoprazole: 40 mg = 1 tablet, By Mouth, Daily PredniSONE: 7.5 mg = 1.5 tablet, By Mouth, Daily Sertraline: 25 mg = 1 tablet, By Mouth, Daily sodium bicarbonate: 1,300 mg, By Mouth, 2 times a day Sucralfate: 1 Gm, By Mouth, 3 times a day before meals and bedtime Tacrolimus: 2 mg, By Mouth, Daily before breakfast Tacrolimus: 8 mg, By Mouth, Daily before breakfast Allergies codeine??(FAINTING/HIVES) oxyCODONE Social History Tobacco Use: Never (less than 100 in lifetime). Family History No family history recorded. Lab Results Labs Last 24 Hours BLOOD COUNT & DIFF ? Event Name?? Event Result?? Date/Time?? Hgb 7 Gm/dL??Low 05/15/24 20:40:00 Hct 23.4 %??Low 05/15/24 20:40:00 ? * Yamileth GODFREY, Vicki: PERFORM Event Display: Consultation Note Authored Date: [id number] Patient: ??GRETA SHARP ? Age:??64 Years?Sex:??Female?:??1960?? Attending:??Jose Antonio Guerrero MD, Bonnie Admission Date: 05/12/2024 ?? Chief Complaint and Reason for Consultation Assistance with the management of ESRD and HD needs. ?? History of Present Illness Ms. Sharp is a 64-year-old female with a history of ESRD recently re-started on HD after failed allograft who dialyzes on a // schedule at [facility] via a LUE AVG.?? Her past medical history is significant for HTN, HLD, DM, and renal transplant 02/2022 (failed in 03/2024 after several bouts of T- cell mediated rejection and antibody-mediated rejection).?? Against this backdrop, she presented to [facility] on 05/12 from her [facility] where they determined her to be too weak and confused to attend her regularly scheduled outpatient HD treatment.?? Per pt's , she has been having a persistent cough for several days and he noted worsening lethargy as the days went on.?? She was found to have a leukocytosis of 16.7 and chest x-ray showed the presence of a multifocal pneumonia and a small right pleural effusion.?? She was started on ceftriaxone and doxycycline in the ED.?? Nephrologywas consulted for assistance with the management of her ESRD and HD needs while she is hospitalized.? Past Medical History Active Problems(20) Anemia of chronic kidney failure Carcinoid, of [...] acidosis Mood disorder Nausea & vomiting Underweight ? Medications: Home Medications (19) Active acetaminophen 325 mg oral tablet??650 mg, PRN, By Mouth, Every 6 hours AmLODipine Tablet??10 mg, By Mouth, Daily Benadryl 25 mg oral capsule??25 mg = 1 capsule, PRN, By Mouth, 2 times a day Carafate 1 gm oral tablet??1 Gm, By Mouth, 3 times a day before meals and bedtime carvedilol 25 mg oral tablet??25 mg = 1 tablet, By Mouth, 2 times a day Dilaudid 4 mg oral tablet??4 mg = 1 tablet, PRN, By Mouth, Every 4 hours docusate sodium 100 mg oral tablet??100 mg = 1 tablet, PRN, By Mouth, 2 times a day insulin lispro 100 units/mL injectable solution??2-10 units, Subcutaneous Injection, 3 times a day before meals isosorbide mononitrate 30 mg oral tablet, extended release??30 mg, By Mouth, Daily in AM magnesium oxide 400 mg oral tablet??400 mg, By Mouth, 2 times a day mycophenolic acid 360 mg oral delayed release tablet??360 mg, By Mouth, 2 times a day Nephro Vitamins oral tablet??1 tablet, By Mouth, Daily pantoprazole 40 mg oral delayed release tablet??40 mg = 1 tablet, By Mouth, Daily predniSONE 5 mg oral tablet??7.5 mg = 1.5 tablet, By Mouth, Daily Procrit 69869 u/ml injectable solution??See Instructions sertraline 25 mg oral tablet??25 mg = 1 tablet, By Mouth, Daily sodium bicarbonate 650 mg oral tablet??1,300 mg, By Mouth, 2 times a day tacrolimus 1 mg oral tablet, extended release??2 mg, By Mouth, Daily before breakfast tacrolimus 4 mg oral tablet, extended release??8 mg, By Mouth, Daily before breakfast ?? FH: Reviewed and non-contributory ?? Social: Reviewed ?Review of Systems Const: no fever, no chills HEENT: no dizziness, no headaches, no vision changes Resp: no SOB, no wheezing, no cough CV: no chest pain, no palpitations, no edema, no orthopnea, no syncope GI: no abdominal pain, no n/v, no diarrhea, no constipation, no melena, no hematochezia : no dysuria, no hematuria MSK: no myalgias, no DROM, no back pain Neuro: no paresthesias, no focal weakness?? Skin: no rashes Heme: No easy bruising, no bleeding or clotting tendency ?? 01/28 systems were reviewed and were negative for any positive or negative complaint, except as mentioned above. ?? Objective Vital Signs (last 24 hrs) ?Last Charted Heart Rate Peripheral?70 bpm ??(MAY 13 08:55) Resp Rate?17 br/min ??(MAY 13 07:54) SBP?120 mm Hg ??(MAY 13 08:55) DBP?60 mm Hg ??(MAY 13 08:55) SpO2?96 % ??(MAY 13 07:54) Weight?45.6 kg ??(MAY 12:00) Height?160 cm ??(MAY 13 07:54) BMI?17.81 ??(MAY 12:00) Intake?? Oral Fluids: 120 mL (12:00) ?? Intake/Output? 05/12 17:00 05/13 07:00 05/12 07:00 05/11 07:00 05/10 07:00 ?? 05/13 13:23 05/13 13:23 05/13 06:59 05/12 06:59 05/11 06:59 Intake ?240 ?240 ?0 ?0 ?0 Output ?0 ?0 ?0 ?0 ?0 Net Total ?240 ?240 ?0 ?0 ?0 ? Physical Exam General: ??NAD, AAOx4 HEENT: NCAT, MMM Neck: no JVD Cardio: normal S1 snd S2, no MRG, RRR Resp: CTAB Abdo: NT, ND, Extremities: No peripheral edema, Skin: No rashes or other abnormalities Neuro: Grossly intact ?? BACTERIOLOGY MRSA PCR Result Negative, MRSA target DNA not detected. ()?? 05/13/2024 06:30 S Aureus ??PCR Result Negative, SA target DNA not detected. ()?? 05/13/2024 06:30 ?? BLOOD COUNT & DIFF WBC 15.7 k/mm3 (High)?? 05/13/2024 08:14 RBC 2.56 m/mm3 (Low)?? 05/13/2024 08:14 Hgb 6.5 Gm/dL (Low)?? 05/13/2024 08:14 Hct 23.1 % (Low)?? 05/13/2024 08:14 MCV 90.2 femtoliters ()?? 05/13/2024 08:14 MCH 25.4 pg (Low)?? 05/13/2024 08:14 MCHC 28.1 Gm/dL (Low)?? 05/13/2024 08:14 Platelet Count 247 k/mm3 ()?? 05/13/2024 08:14 RDW-SD 59.3 femtoliters (High)?? 05/13/2024 08:14 MPV 9.9 femtoliters ()?? 05/13/2024 08:14 Nucleated RBC (Automated) 0.0 #/100 WBC'S ()?? 05/13/2024 08:14 Abs. NRBC 0.0 k/mm3 ()?? 05/13/2024 08:14 Abs. Neut 14.5 k/mm3 (High)?? 05/12/2024 14:59 Abs. Lymph 0.5 k/mm3 (Low)?? 05/12/2024 14:[address] [place] 1.3 k/mm3 (High)?? 05/12/2024 14:59 Abs. Eo 0.0 k/mm3 ()?? 05/12/2024 14:59 Abs. Baso 0.0 k/mm3 ()?? 05/12/2024 14:59 Neut % 86.8 % (High)?? 05/12/2024 14:59 Lymph % 3.1 % (Low)?? 05/12/2024 14:59 [place] % 7.6 % ()?? 05/12/2024 14:59 Eos % 0.1 % ()?? 05/12/2024 14:59 Baso % 0.1 % ()?? 05/12/2024 14:59 Hemoglobin (POC) POC Cartridge 8.8 Gm/dL (Low)?? 05/12/2024 15:00 Hematocrit (POC) POC Cartridge 26 % (Low)?? 05/12/2024 15:00 Imm Gran 2.3 % ()?? 05/12/2024 14:59 Abs. Imm Gran 0.4 k/mm3 ()?? 05/12/2024 14:59 ?? BLOOD GAS pH Venous (POC) POC Cartridge 7.58 (High)?? 05/12/2024 15:00 pCO2 Venous (POC) POC Cartridge 33.5 mm Hg (Low)?? 05/12/2024 15:00 pO2 Venous (POC) POC Cartridge 17 mm Hg (Low)?? 05/12/2024 15:00 Est Bicarbonate (POC) POC Cartridge 31.2 mmol/L (High)?? 05/12/2024 15:00 % O2 Sat Venous (POC) POC Cartridge 33 ()?? 05/12/2024 15:00 Base Excess (POC) POC Cartridge 9 ()?? 05/12/2024 15:00 Specimen Type - Blood Gas VENOUS ()?? 05/12/2024 15:00 ?? CHEM GENERAL Sodium 137 mmol/L ()?? 05/13/2024 08:14 Potassium 3.8 mmol/L ()?? 05/13/2024 08:14 Chloride 96 mmol/L (Low)?? 05/13/2024 08:14 Bicarbonate Level 27 mmol/L ()?? 05/13/2024 08:14 Anion Gap 14 mmol/L ()?? 05/13/2024 08:14 Sodium (POC) POC Cartridge 132 mmol/L (Low)?? 05/12/2024 15:00 Potassium (POC) POC Cartridge 3.7 mmol/L ()?? 05/12/2024 15:00 Glucose Level 157 mg/dL (High)?? 05/13/2024 08:14 Glucose (POC) POC Cartridge 137 (High)?? 05/12/2024 15:00 Glucose, POC 171 mg/dL (High)?? 05/13/2024 11:26 BUN 53 mg/dL (High)?? 05/13/2024 08:14 Creatinine-Blood 3.76 mg/dL (High)?? 05/13/2024 08:14 Estimated GFR Creatinine 13 ML/MIN/1.73 M2 ()?? 05/13/2024 08:14 Calcium 9.1 mg/dL ()?? 05/12/2024 14:59 Ionized Calcium (POC) POC Cartridge 1.05 mmol/L (Low)?? 05/12/2024 15:00 Protein, Total 6.4 Gm/dL ()?? 05/12/2024 14:59 Albumin 2.6 Gm/dL (Low)?? 05/12/2024 14:59 AG Ratio 0.7 ()?? 05/12/2024 14:59 Alkaline Phosphatase 85 units/L ()?? 05/12/2024 14:59 AST (SGOT) 13 units/L ()?? 05/12/2024 14:59 ALT (SGPT) <5 units/L ()?? 05/12/2024 14:59 Bilirubin, Total 0.4 mg/dL ()?? 05/12/2024 14:59 ?? ENDOCRINE/TUMOR MARKER TSH 1.18 uIU/mL ()?? 05/12/2024 14:59 ?? MISC. CHEMISTRY Procalcitonin 3.56 ng/mL ()?? 05/13/2024 08:14 ?? URINE OTHER Est Creatinine Clearance 10.88 mL/min ()?? 05/13/2024 09:24 ?? VIROLOGY Influenza A PCR NEGATIVE ()?? 05/12/2024 16:44 Influenza B PCR NEGATIVE ()?? 05/12/2024 16:44 RSV PCR NEGATIVE ()?? 05/12/2024 16:44 COVID-19 PCR Specimen Source NASAL ()?? 05/12/2024 16:44 COVID-19 PCR Result NEGATIVE ()?? 05/12/2024 16:44 ?? No qualifying data available ? Assessment/Plan Ms. Sharp is a 64-year-old female with a history of ESRD recently re-started on HD after failed allograft who dialyzes on a M/W/F schedule at [facility] via a LUE AVG.?? Her past medical history is significant for HTN, HLD, DM, and renal transplant 02/2022 (failed in 03/2024 after several bouts of T- cell mediated rejection and antibody-mediated rejection).?? Against this backdrop, she presented to [facility] on 05/12 from her SNF where they determined her to be too weak and confused to attend her regularly scheduled outpatient HD treatment.?? Per pt's , she has been having a persistent cough for several days and he noted worsening lethargy as the days went on.?? She was found to have a leukocytosis of 16.7 and chest x-ray showed the presence of a multifocal pneumonia and a small right pleural effusion.?? She was started on ceftriaxone and doxycycline in the ED.?? Nephrologywas consulted for assistance with the management of her ESRD and HD needs while she is hospitalized.? 1. ESRD on HD - secondary to failed allograft; initial cause of ESRD was HTN/DM - schedule: M/W/F at [facility] - access: LUE AVG ?? 2. HCAP - with multifocal pneumonia - on Doxycycline and Zosyn ?? Plan - HD on M/W/F schedule while admitted - okay for imaging with contrast if necessary ?? Case discussed with Dr. Lindquist. Thank you for allowing us to participate in your patient's care. ?? Vicki Carson [facility]- [facility] ? History and physical note * Wilmar HERRERA, Josh Rubin: PERFORM Event Display: History and Physical Hospital Authored Date: Patient: ??GRETA SHARP ? Age:??64 Years?Sex:??Female?:??1960?? Chief Complaint/Reason for Consultation Pt is coming from [facility] when staff reports AMS,Patient is supposed to be at ??dialysis today and is too weak to go. Facility is sending patient to ED for dialysis. Pt is awake oriented x3 for EMS. 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 and son are at bedside assisting with history taking. As per her , the patient has been noticed to have persistent cough especially since Friday.?? She noticed her having worsening weakness on Friday.?? He claims that the weakness improved after having hemodialysis.?? Today, has been showed up before her dialysis session and claims that the bert ent was not dressed or ready for her dialysis session.?? She was noticed to be more confused and complaining of weakness.?? He denies any fever, chills or shortness of breath.?? No nausea, vomiting or diarrhea. claims that her appetite has improved in the last 2 weeks. She complains of occasional pain on the left hip.?? At the moment, she denies any pain. In the emergency room, she was found to have a leukocytosis of 16.7 and underwent a chest x-ray.?? Chest x-ray showed the presence of multifocal pneumonia and a small right pleural effusion.?? The patient was started empirically on ceftriaxone and doxycycline while in the emergency room.. Review of Systems A full review of systems was completed and is otherwise negative except as mentioned in history of present illness. Objective ? Vital Signs?? Temperature: 99.3 DegF (05/12/24 14:24:00) Temperature Route: Oral (05/12/24 14:24:00) Pulse Rate: 81 bpm (05/12/24 21:13:00) Respiratory Rate: 25 br/min (05/12/24 21:13:00) Systolic Blood Pressure: 129 mm Hg (05/12/24 21:13:00) Diastolic Blood Pressure: 64 mm Hg (05/12/24 21:13:00) Blood pressure sites: Arm, right (05/12/24::00) Mean Arterial Pressure: 81 mm Hg (05/12/24 18:04:00) Pulse Pressure: 65 mm Hg (05/12/24:13:00) Oxygen Saturation: 97 % (05/12/24::00) Mode of Delivery (Oxygen): Room air (05/12/24::) Early Warning Score: 5 (05/12/24:38:25) ? Physical Exam Constitutional: Alert, frail,??in no distress. Mental Status: Oriented to person??and place only. Head: Normocephalic. Eyes: Pupils are equal, round and reactive to light. Extraocular muscles intact. Ear, Nose and Throat: Oropharynx clear,??pallor without jaundice, mucous membranes moist. Ears and nose without masses, lesions or deformities. Trachea midline. Neck: Supple, Full range of motion. Respiratory:??Significant crackles??on both lungs??but??more prominent??at??the right??base all theway up to the mid lung aguilar.?? No wheezes or rhonchi appreciated. Cardiovascular: S1 S2 regular. No murmurs, rubs or gallops. Gastrointestinal: Abdomen soft, non-tender, non-distended. Normal bowel sounds. No pulsatile mass. No hepatosplenomegaly. Genitourinary: No costovertebral angle tenderness. Neurologic: Cranial nerves II-XII grossly intact. No focal neurological deficits. Flexor plantar response. Moves all extremities spontaneously. Sensation intact bilaterally. Skin: No rashes or lesions. No petechiae or purpura.?No lower extremity edema.?? AV fistula on the left arm with adequate thrill. Musculoskeletal: No cyanosis or clubbing. No gross deformities. Normal range of motion. Heme/Lymphatics/Immun: Palpation of neck reveals no swelling or tenderness of neck nodes. Palpationof groin reveals no swelling or tenderness of groin nodes. Psychiatric: Normal mood and affect Assessment/Plan Diagnoses Acute on chronic kidney failure ??(N17.9) Anemia of chronic kidney failure ??(N18.9) Dementia ??(F03.90) Diabetes mellitus ??(E11.9) Multifocal pneumonia ??(J18.9) Transplant rejection ??(T86.91) ?? Assessment:??This is a 64-year-old woman??who is brought from a senior living facility due to worsening confusion and weakness.??Patient was found to have multifocal pneumonia.??Patient??with history of??DDKT??and??chronically immunosuppressed. ?? Multifocal pneumonia (J18.9):??She will be admitted to regular room as inpatient. Oxygen supplementation via nasal cannula 2 L/min.??Incentive spirometer every 2 hours while awake. Patient??is clinically immunosuppressed.??I will broaden??her antibiotic spectrum. She will receive vancomycin 500??mg IV x 1, Zosyn??3.375 g IV every 12 hours??and continue doxycycline??100 mg??IV every 12 hours. Check sputum Gram and culture.??Monitor cultures and leukocytosis. Check Legionella and strep pneumonia antigen and urine.??Check MRSA swab??and calcitonin??level. ?? Transplant rejection (T86.91):??- ?? Acute on chronic kidney failure (N17.9):??Patient is status post DDKT??on immunosuppressive therapy. Nephrology/transplant??consult. Continue prednisone 7.5 mg p.o. once a day, tacrolimus 10 mg once a day??and CellCept??360??milligrams p.o. twice a day. Monitor BUN and creatinine ?? Anemia of chronic kidney failure (N18.9):??Monitor H&H. ?? Diabetes mellitus (E11.9):??Insulin sliding scale ?? Dementia (F03.90):??Patient has been??seems to be reluctant??about accepting this diagnosis.??He claims that her confusion is due to?? her medications Frequent reorientation by nursing staff. Bowel regimen Colace and senna. She is a high risk for delirium. ?? VTE Prophylaxis:??Heparin 5000 subcu every 8 hours ?? Discharge Planning:? Code Status:??She is a full code. ?Order Code Status:??Code Status Ordered ? I spent a total of 75 minutes today reviewing the chart/medical records, speaking with the patient,formulating and discussing the treatment plan, and documenting the findings and encounter. ? Histories Allergies Allergies ?(Active and Proposed Allergies Only) codeine? (Severity: Unknown severity, Onset: Unknown) ?Reactions: FAINTING/HIVES oxyCODONE? (Severity: Unknown severity, Onset: Unknown) ? Past Medical History/Problem List Active Problems(20) Anemia of chronic kidney failure Carcinoid, of [...] acidosis Mood disorder Nausea & vomiting Underweight ? Past Surgical History Percutaneous skeletal fixation of femoral fracture, proximal end, neck: 02/11/24 EGD - esophagogastroduodenoscopy: 09/17/23 Colonoscopy: 04/17/20 ? Social History Tobacco Details:??Use: Never (less than 100 in lifetime). ? Family History No Family History documented. ? Medications Home Medications Acetaminophen (acetaminophen 325 mg oral tablet)?650?Milligram?By Mouth?Every 6 hours?as needed?not to exceed 4000 mg/day?Pain , Moderate Amlodipine (AmLODipine Tablet)?10?Milligram?G Tube?Daily?By Mouth Carvedilol (carvedilol 25 mg oral tablet)?25?Milligram?1?tablet?By Mouth?2 times a day DiphenhydrAMINE (Benadryl 25 mg oral capsule)?1?capsule?25?Milligram?By Mouth?2 times a day?as needed?for itching Docusate (docusate sodium 100 mg oral tablet)?1?tab(s)?100?Milligram?By Mouth?2 times a day?as needed?Constipation?for 30?Days Epoetin Bassem (Procrit 88675 u/ml injectable solution)?See Instructions?Subcutaneous Injection Hydromorphone (Dilaudid [...] oral tablet, extended release)?8?Milligram?By Mouth?Daily before breakfast ? Results Recent Labs BLOOD COUNT & DIFF WBC 16.7 k/mm3 (High)?? 05/12/2024 14:59 RBC 2.93 m/mm3 (Low)?? 05/12/2024 14:59 Hgb 7.8 Gm/dL (Low)?? 05/12/2024 14:59 Hct 27.2 % (Low)?? 05/12/2024 14:59 MCV 92.8 femtoliters ()?? 05/12/2024 14:59 MCH 26.6 pg (Low)?? 05/12/2024 14:59 MCHC 28.7 Gm/dL (Low)?? 05/12/2024 14:59 Platelet Count 258 k/mm3 ()?? 05/12/2024 14:59 RDW-SD 59.6 femtoliters (High)?? 05/12/2024 14:59 MPV 10.2 femtoliters ()?? 05/12/2024 14:59 Nucleated RBC (Automated) 0.0 #/100 WBC'S ()?? 05/12/2024 14:59 Abs. NRBC 0.0 k/mm3 ()?? 05/12/2024 14:59 Abs. Neut 14.5 k/mm3 (High)?? 05/12/2024 14:59 Abs. Lymph 0.5 k/mm3 (Low)?? 05/12/2024 14:[address] [place] 1.3 k/mm3 (High)?? 05/12/2024 14:59 Abs. Eo 0.0 k/mm3 ()?? 05/12/2024 14:59 Abs. Baso 0.0 k/mm3 ()?? 05/12/2024 14:59 Neut % 86.8 % (High)?? 05/12/2024 14:59 Lymph % 3.1 % (Low)?? 05/12/2024 14:59 [place] % 7.6 % ()?? 05/12/2024 14:59 Eos % 0.1 % ()?? 05/12/2024 14:59 Baso % 0.1 % ()?? 05/12/2024 14:59 Hemoglobin (POC) POC Cartridge 8.8 Gm/dL (Low)?? 05/12/2024 15:00 Hematocrit (POC) POC Cartridge 26 % (Low)?? 05/12/2024 15:00 Imm Gran 2.3 % ()?? 05/12/2024 14:59 Abs. Imm Gran 0.4 k/mm3 ()?? 05/12/2024 14:59 ?? BLOOD GAS pH Venous (POC) POC Cartridge 7.58 (High)?? 05/12/2024 15:00 pCO2 Venous (POC) POC Cartridge 33.5 mm Hg (Low)?? 05/12/2024 15:00 pO2 Venous (POC) POC Cartridge 17 mm Hg (Low)?? 05/12/2024 15:00 Est Bicarbonate (POC) POC Cartridge 31.2 mmol/L (High)?? 05/12/2024 15:00 % O2 Sat Venous (POC) POC Cartridge 33 ()?? 05/12/2024 15:00 Base Excess (POC) POC Cartridge 9 ()?? 05/12/2024 15:00 Specimen Type - Blood Gas VENOUS ()?? 05/12/2024 15:00 ?? CHEM GENERAL Sodium 136 mmol/L ()?? 05/12/2024 14:59 Potassium 3.9 mmol/L ()?? 05/12/2024 14:59 Chloride 94 mmol/L (Low)?? 05/12/2024 14:59 Bicarbonate Level 28 mmol/L ()?? 05/12/2024 14:59 Anion Gap 14 mmol/L ()?? 05/12/2024 14:59 Sodium (POC) POC Cartridge 132 mmol/L (Low)?? 05/12/2024 15:00 Potassium (POC) POC Cartridge 3.7 mmol/L ()?? 05/12/2024 15:00 Glucose Level 135 mg/dL (High)?? 05/12/2024 14:59 Glucose (POC) POC Cartridge 137 (High)?? 05/12/2024 15:00 BUN 45 mg/dL (High)?? 05/12/2024 14:59 Creatinine-Blood 3.21 mg/dL (High)?? 05/12/2024 14:59 Estimated GFR Creatinine 16 ML/MIN/1.73 M2 ()?? 05/12/2024 14:59 Calcium 9.1 mg/dL ()?? 05/12/2024 14:59 Ionized Calcium (POC) POC Cartridge 1.05 mmol/L (Low)?? 05/12/2024 15:00 Protein, Total 6.4 Gm/dL ()?? 05/12/2024 14:59 Albumin 2.6 Gm/dL (Low)?? 05/12/2024 14:59 AG Ratio 0.7 ()?? 05/12/2024 14:59 Alkaline Phosphatase 85 units/L ()?? 05/12/2024 14:59 AST (SGOT) 13 units/L ()?? 05/12/2024 14:59 ALT (SGPT) <5 units/L ()?? 05/12/2024 14:59 Bilirubin, Total 0.4 mg/dL ()?? 05/12/2024 14:59 ?? ENDOCRINE/TUMOR MARKER TSH 1.18 uIU/mL ()?? 05/12/2024 14:59 ?? VIROLOGY Influenza A PCR NEGATIVE ()?? 05/12/2024 16:44 Influenza B PCR NEGATIVE ()?? 05/12/2024 16:44 RSV PCR NEGATIVE ()?? 05/12/2024 16:44 COVID-19 PCR Specimen Source NASAL ()?? 05/12/2024 16:44 COVID-19 PCR Result NEGATIVE ()?? 05/12/2024 16:44 ? Image ?XR Chest Portable??05/12/2024 16:22 by Tiffanie Akers ?IMPRESSION: Multifocal pneumonia is favored over pulmonary edema given the large areaof right perihilar airspace disease and consolidation. Milder but still significant left perihilar airspace disease and groundglass. Small right pleural effusion Follow-up exam is recommended to document resolution of the above-described findings. ?Other Image ?EKG: Ventricular Rate: 58??BPM Atrial Rate: 58??BPM P-R Interval: 180??ms QRS Duration: 76??ms Q-T Interval: 438??ms QTC Calculation(Bazett): 429??ms P [place]: 63??degrees R [place]: -15??degrees T [place]: 37??degrees Poor data quality, interpretation may be adversely affected Sinus bradycardia Minimal voltage criteria for LVH, may be normal variant ( R in aVL ) Septal infarct , age undetermined Abnormal ECG When compared with ECG of 12-SEP-2023 01:12, Septal infarct is now Present ? Microbiology ?Influenza A PCR NEGATIVE??05/12/2024 17:42 by Contributor_system , [employer] Surgical ?NEGATIVE ?Influenza B PCR NEGATIVE??05/12/2024 17:42 by Contributor_system , Figure 8 Surgical ?NEGATIVE ?RSV PCR NEGATIVE??05/12/2024 17:42 by Contributor_system , [employer] ?NEGATIVE ?COVID-19 PCR Result NEGATIVE??05/12/2024 17:42 by Contributor_system , Figure 8 Surgical ?NEGATIVE ?? EKG study * Event Display: ECG 12-Lead Authored Date: Please click on pdf link to open report * Event Display: ECG 12-Lead Authored Date: Ventricular Rate: 77 BPM Atrial Rate: 77 BPM P-R Interval: 144 ms QRS Duration: 76 ms Q-T Interval: 364 ms QTC Calculation(Bazett): 411 ms P [place]: 77 degrees R [place]: -34 degrees T [place]: 46 degrees Sinus rhythm with Premature atrial complexes Left axis deviation Cannot rule out Anterior infarct (cited on or before 20-Nov-2023) Abnormal ECG When compared with ECG of 22-Mar-2024 18:32, Premature atrial complexes are now Present Questionable change in initial forces of Anteroseptal leads Confirmed by KAREEM SIDDIQI ([id number]) on 05/13/2024 10:38:00 AM [employer]: [facility] Progress note * Augusta Baltazar RN: PERFORM, MODIFY, SIGN, VERIFY Event Display: Progress Note [facility] Authored Date: [id number] Patient: GRETA SHARP Age: 64 years Sex: Female : 1960 Associated Diagnoses: None Author: Augusta Baltazar RN Findings Problem Related to Alteration in Genitourinary : Alteration in Genitourinary Function/new 05/21/2024 15:16 EST Alteration in Status Related to RF requiring hemodialysis Goals & Outcomes, Genitourinary Pt will achieve normal/improved fluid balance, Pt will maintainadequate function appropriate for pt, Pt will maintain normal fluid balance Interventions, Resolved problem, Interventions no longer in effect BH Goals/Interventions, Genitourinary Yes Genitourinary, Problem Start 05/19/2024 23:00 Reviewed Plan with, Genitourinary Patient Patient Progression, Genitourinary Resolved problem Genitourinary, Problem Ongoing No Genitourinary, Problem Resolved 05/21/2024 15:18 . Alteration in Respiratory Function (new) : Alteration in Respiratory Function/new 05/21/2024 15:18 EST Alteration in Resp Status Related to Pneumonia Goals & Outcomes, Respiratory Pt will maintain/resume baseline physical assessment, Pt will notdevelop complications r/t mechanical ventilation, Pt will maintain adequate nutritional intake, Pt will maintain/resume normal fluid/electrolyte balance, Pt will not develop complications r/t immobility, Pt will demonstrate proper technique w/self care procedures Interventions, Respiratory Resolved problem, Interventions no longer in effect Goals/Interventions, Respiratory Yes Respiratory, Problem Start 05/13/2024 7:00 Reviewed Plan with, Respiratory Patient Patient Progression, Respiratory Resolved problem Respiratory, Problem Resolved 05/21/2024 15:18 . Alteration in Tissue Perfusion : Alteration in Tissue Perfusion 05/21/2024 15:16 EST Alteration Tissue Perfusion related to Anemia Goals & Outcomes: Tissue perfusion Pt will resume/maintain adequate peripheral circulation, Pt will experience improved tissue perfusion, Pt will be hemodynamically stable, Pt will achieve normal/improved/optimal neuro status Interventions: Tissue Perfusion Resolved problem, Interventions no longer in effect Goals/Interventions, Tissue Perfusion Yes Tissue Perfusion, Problem Start 05/21/2024 15:17 Reviewed Plan with, Tissue Perfusion Patient Patient Progression, Tissue Perfusion Resolved problem Problem Resolved, Tissue Perfusion 05/21/2024 15:18 . Narrative/Incidental Patient is A+O*3, vital signs stable. patient stated pain ???8/10 in buttocks?? , medicated appropriately with good affect. 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 Patient has a pressure injury to coccyx.Patient is bedfast. patient was medicated appropriately with appropriate affect. Patient is comfortable in bed, bed in lowest position, wheels locked, bed alarm on and call timmons within reach. Patient ordered for discharge per MD orders. Discharge education done with patient. Patient understood discharge education. Discharge paperwork signed and copy put in bin to be scanned into chart andoriginal copy given to patient. All valuables and belongings gathered and returned to patient. No PIVs to be removed. Patient left unit in a wheelchair accompanied by transport personnel and family. . * Pebbles Gutierrez RN: PERFORM, SIGN, VERIFY Event Display: Progress Note Hospital Authored Date: [id number] Patient: GRETA SHARP Age: 64 years Sex: Female : 1960 Associated Diagnoses: None Author: Brenda DENNIS, Pebbles Findings Narrative/Incidental 3 hour hemodialysis treatment via left AVG Pulled 1.3 kg fluid Critline -6.0 % BP low mid treatment, pt sympotomatic, improved with decreased goal and NS bolus Pt stable post treatment BP 127/70 Report called to Augusta DENNIS on S64 See treatment sheet for details. * Yamileth GODFREY, Vicki: MODIFY, PERFORM Event Display: Progress Note Hospital Authored Date: Patient: ??GRETA SHARP ? Age:??64 Years?Sex:??Female?:??1960?? Attending:??Chuck HERRERA, Mohinder Admission Date: 05/12/2024 ?? Subjective Patient seen and examined; events noted.?? No complaints to offer this morning. ? Objective Vital Signs (last 24 hrs) ?Last Charted Heart Rate Peripheral?62 bpm ??(MAY 20:40) Resp Rate?16 br/min ??(MAY 20:57) SBP?H??140mm Hg ??(MAY 20:40) DBP?59 mm Hg ??(MAY 20 20:40) SpO2?100 % ??(MAY 20 14:35) Height?160 cm ??(MAY 20 14:35) Output?? Stool Frequency: 2 (13:00) ?? Intake/Output?? 05/12 17:00 05/21 07:00 05/20 07:00 05/19 07:00 05/18 07:00 ?? 05/21 05:25 05/21 05:25 05/21 06:59 05/20 06:59 05/19 06:59 Intake ? 1946 ?0 ?0 ?100 ?620 Output ? 3200 ?0 ?0 ? 1500 ?0 Net Total ?-1254 ?0 ?0 ?-1400 ?620 Urine Count ?6 ?0 ?0 ?0 ?3 ? Physical Exam General: NAD, AAOx4 HEENT: NCAT, MMM Neck: no JVD, neck supple Cardio: normal S1 snd S2, no MRG, RRR Resp: CTAB Abdo:??NT, ND Extremities: No peripheral edema Skin: No rashes or other abnormalities Neuro: Grossly intact ?? CHEM GENERAL Glucose, POC 104 mg/dL (High)?? 05/20/2024 20:54 ?? No qualifying data available ? Assessment/Plan Ms. Sharp is a 64-year-old female with a history of ESRD recently re-started on HD after failed allograft who dialyzes on a M//F schedule at [facility] via a LUE AVG.?? Her past medical history is significant for HTN, HLD, DM, and renal transplant 02/2022 (failed in 03/2024 after several bouts of T- cell mediated rejection and antibody-mediated rejection).?? Against this backdrop, she presented to [facility] on 05/12 from her SNF where they determined her to be too weak and confused to attend her regularly scheduled outpatient HD treatment.?? Per pt's , she has been having a persistent cough for several days and he noted worsening lethargy as the days went on.?? She was found to have a leukocytosis of 16.7 and chest x-ray showed the presence of a multifocal pneumonia and a small right pleural effusion.?? She was started on ceftriaxone and doxycycline in the ED.?? Nephrologywas consulted for assistance with the management of her ESRD and HD needs while she is hospitalized.? 1. ESRD on HD - secondary to failed allograft; initial cause of ESRD was HTN/DM - schedule: M/W/F at [facility] - access: LUE AVG ?? 2. HCAP - with multifocal pneumonia - on Doxycycline and Zosyn ?? 3. Failed renal allograft - will stop MMF today - continue prednisone 7.5 mg daily with plan to taper down on Envarsus over next several months ?? Plan - HD on M/W/F schedule while admitted -??s/p open thrombectomy 05/17 - okay for imaging with contrast if necessary ? Case discussed with Dr. Adames. Thank you for allowing us to participate in your patient's care. ?? [facility]icki Carson [facility]- [facility] [place]?? * Jerod Adames DO: PERFORM Event Display: Progress Note Hospital Authored Date: [id number] I have seen and evaluated the patient in conjunction with the advanced practitioner. I have personally examined the patient, reviewed their history, confirmed the above findings, and agree with the impressions and recommendations of the advanced practitioner.?? Note * Augusta Baltazar RN: PERFORM Event Display: Discharge/Transfer Note Hospital Authored Date: [id number] Nursing Discharge Note Entered On: 05/21/2024 15:52 EST Performed On: 05/21/2024 15:51 EST by Augusta Baltazar RN Nursing Discharge Note 2 Discharge Time : 05/21/2024 15:51 EST Discharge Level of Care at Discharge : Homehealth/VNA Patient Left Unit Via : Wheelchair Patient Accompanied Off Unit with : Significant other DC Instructions Provided & Signed by Pt : Yes Patient Understands D/C Instructions : Yes Patient Instructions Discharge Signed : Yes Did Pt have Specialty Bed or Wound Vac : No Augusta Baltazar RN - 05/21/2024 15:51 EST * Mohinder Duffy MD: PERFORM Event Display: Discharge/Transfer Note Hospital Authored Date: [id number] Patient: ??GRETA SHARP ? Age:??64 Years?Sex:??Female?:??1960?? Patient Information Discharge Location: [facility] Primary Care Physician: Marita Wetzel DO Admit Date/Time: 05/12/2024 17:00 Discharge Disposition Discharge Disposition: ?? Discharge Diagnosis General medical ([id number]) Multifocal pneumonia (J18.9) Anemia of chronic kidney failure (N18.9) Diabetes mellitus (E11.9) Transplant rejection (T86.91) Acute on chronic kidney failure (N17.9) Dementia (F03.90) _ Discharge Medications Acetaminophen (acetaminophen 325 mg oral tablet)?650?Milligram?By Mouth?Every 6 hours?as needed?not to exceed 4000 mg/day?Pain , Moderate Amlodipine (AmLODipine Tablet)?10?Milligram?G Tube?Daily?By Mouth Carvedilol (carvedilol 25 mg oral tablet)?25?Milligram?1?tablet?By Mouth?2 times a day DiphenhydrAMINE (Benadryl 25 mg oral capsule)?1?capsule?25?Milligram?By Mouth?2 times a day?as needed?for itching Docusate (docusate sodium 100 mg oral tablet)?1?tab(s)?100?Milligram?By Mouth?2 times a day?as needed?Constipation?for 30?Days Epoetin Bassem (Procrit 87543 u/ml injectable solution)?See Instructions?Subcutaneous Injection Hydromorphone (Dilaudid [...] oral tablet, extended release)?8?Milligram?By Mouth?Daily before breakfast ? 72 Hour Antibiotic History Stopped Antibiotics Stop Date/Time Last Administered First Administered Piperacillin-Tazobactam??3.375 Gm, 25 mL/hr, IVPB, Every 12 hours 05/19/2024 14:54 05/19/2024 09:01 05/13/2024 03:29 ? Medications Started None Medications Discontinued Mycophenalate Doses Changed Tacrolimus decreased to 8mg PCP Follow-Up/Heads-Up - Repeat blood work - Follow-up on discharge. - Please review list of medications. Future Appointments Friday. 2024 10:30 AM EDT ?? 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 confusion and complains of generalized weakness.?R1??Patient admitted for management of community-acquired pneumonia with concern for aspiration.??Course complicated by malfunctioning of her AV fistula and she is scheduled for??fistulogram on Friday.??Course complicated by acute on chronic anemia??s/p??1 unit of PRBCs. Myamandata given/images for details of hospitalization course. ? AV fistula??occluded/malfunctioning ESRD s/p DDKT (02/2022)?? History of transplant rejection ESRD, dialysis on Friday.?? AV fistula not functioning:??s/p?? IR?? thrombectomy of fistula on 05/17 -Hemodialysis as per nephrology. -Home dose of tacrolimus was continued, plans to down titrate and dose was decreased to 8mg prior to discharge after discussion with nephrology. -Mycophenolate was discontinued. -Prednisone was continued from dose. -Renal diet ?? Acute on chronic anemia Anemia of chronic kidney failure (N18.9): Patient was not able to get back 300 cc of blood??after dialysis session due to??malfunctioning of her AV fistula Hemoglobin critically low at 6.4??and she received 0.5 units PRBC with improvement 6.8 ?? 05/18: Hb dropped to 6.3;??status post 1 unit PRBC ? Diarrhea History of Carcinoid Patient??reports history of chronic diarrhea She had a CT abdomen on 10/2023 which did show??evidence of diarrheal illness as well as Apparently patient has history of carcinoid??with a prior appendiceal??resection and hemicolectomy??right-sided She has not seen GI in several years. She is also immunocompromise and is at high risk of developing??viral or bacterial infections C diff and GI panel PCR negative ?? Plan: - Encourage p.o. fluid??intake - Hold off on??administering IV fluids??given??no dialysis access - Needs GI follow-up as outpatient/ overdue for colonoscopy ? Multifocal pneumonia with SIRS Leukocytosis Immunocompromise status History of transplant rejection Patient with leukocytosis CXR:??Multifocal pneumonia is favored over pulmonary edema given the large area of right perihilar airspace disease and consolidation. MRSA negative.??Procalcitonin elevated, 3.56.??White blood cell count downtrending Milder but still significant left perihilar airspace disease and ground glass. ??? Aspiration ?? Plan: -Completed IV [id number]??days, no respiratory symptoms as of now. -As needed DuoNebs ? Acute metabolic encephalopathy- Resolved Baseline undiagnosed dementia No focal neurological deficit.??Patient moving all 4 extremities.?? Patient is much more alert awake oriented x 3.??Very forgetful. Plan: -Geriatric consulted Patient will benefit from an outpatient workup and follow up?? -Delirium precautions ?? Other chronic medical problems Chronic GERD (K21.9):??Continue??Protonix.?? Diabetes mellitus (E11.9):??Continue sliding scale and diabetic diet.?? Hypertension (I10):??Continue??Coreg, amlodipine, Imdur Depression: Continue Sertraline ?? Objective . Physical Exam Constitutional: Alert, in no acute distress. Neck: Supple. No JVD. Respiratory: Clear to auscultation. No wheezing or crackles. No use of accessory muscles. Cardiovascular: S1S2 regular. No murmurs, rubs or gallops. Gastrointestinal: Abdomen soft, non-tender, non-distended. Normal bowel sounds. Extremities: No lower extremity pitting edema. No cyanosis or clubbing. Neurologic: AAOx3, Speech normal. No focal neurological deficits. Surgical Procedures Thrombectomy Av Fistula with Fistulagram 05/17/2024 15:35 Pending Results Add On Lab Order ordered on 05/13/2024 CBC ordered on 05/21/2024 Electrolytes ordered on 05/21/2024 Legionella Antigen Urine ordered on 05/12/2024 Sputum, Gram Smear w/Culture Rfx ordered on 05/12/2024 Strep Pneumoniae Urinary Ag ordered on 05/12/2024 Tacrolimus Level ordered on 05/18/2024 Tacrolimus Level ordered on 05/20/2024 Tacrolimus Level ordered on 05/21/2024 Transfuse RBCs ordered on 05/13/2024 Transfuse RBCs ordered on 05/14/2024 Transfuse RBCs ordered on 05/15/2024 Transfuse RBCs ordered on 05/17/2024 Transfuse RBCs ordered on 05/18/2024 Follow-Up Appointments Added Follow Up ?Time Frame ?Comments Damari MARROQUIN, Marita Rubin Patient Instructions -Please follow-up with primary care physician for reviewing hospitalization course, reviewing list of medications and repeating a set of blood work in 1 week's time. -please continue outpatient follow-up with aircraft cylinder mechanic for medication type??titration, continued dialysis?? -Present to the emergency department if you experience any of the following symptoms including but not limited to fevers, shortness of breath or any other issues. -PCP can refer to [facility] at [address] [place] [address] for comprehensive testing. ?? Patient changes: Tacrolimus dose has been decreased to 8 mg daily. Mycophenolate has been discontinued. ?? Home Health Face to Face *Denotes mandatory aguilar ?? *I certify that this patient is under my care and that I or an allowed non- physician working with me had a face to face encounter with the patient on this date:??05/21/2024 14:46 ?? *The encounter with the patient was in whole, or in part, for the following medical condition, which is the primary diagnosis(es) for home health care:??General medical ([id number]) Multifocal pneumonia (J18.9) Anemia of chronic kidney failure (N18.9) Diabetes mellitus (E11.9) Transplant rejection (T86.91) Acute on chronic kidney failure (N17.9) Dementia (F03.90) ?? *Select the indications for the discipline/s that are being arranged for this patient. Nursing (select all that apply): [_] None [_] Medication management (reconciliation, teaching)?? [X] Chronic disease management?? [_] Wound care and treatment?? [_] Home safety evaluation [_] Administer SQ/IM/IV medications?? [_] Cath care?? [_] Drain care?? [_] Trach or GT care?? Other _ Occupation Therapy (select all that apply): [_] None [X] ADL Management [_] Fall prevention training [_] Energy conservation [_] Cognitive training Other _ Physical Therapy (select all that apply): [_] None [_] Functional mobility training [X] Home exercise program to strengthen [_] Increase ROM?? [_] Falls prevention training [_] Home maintenance program for chronic disease Other _ Speech Therapy (select all that apply): [_] None [_] Swallow evaluation and training [_] Speech and language training [_] Cognitive training to process, organize, and/or recall information Other _ ? 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 *Homebound due to (select all that apply): [_] Inability to leave home without assistance/supervision [X) Inability to ambulate without assistance [_] Pain [_] Decreased strength and endurance [_] Unsteady gait [_] Severe SOB and fatigue [_] Impaired transfers [_] Inability to negotiate stairs [_] Limited weight bearing [_] Mental status change? *Physician Signature:??Mohinder??Chuck ?? *By signing this, I certify that I have personally evaluated the patient and agree with the findings and recommendations as documented above. ? Results Discharge Labs BACTERIOLOGY MRSA PCR Result Negative, MRSA target DNA not detected. ()?? 05/13/2024 06:30 S Aureus ??PCR Result Negative, SA target DNA not detected. ()?? 05/13/2024 06:30 ?? BLOOD BANK Blood Type A Positive ()?? 05/17/2024 19:55 Antibody Screen Negative ()?? 05/17/2024 19:55 RBC Unit ID [id number] ()?? 05/18/2024 07:18 RBC Available PT ()?? 05/18/2024 07:18 ?? BLOOD COUNT & DIFF WBC 14.0 k/mm3 (High)?? 05/19/2024 04:55 RBC 2.87 m/mm3 (Low)?? 05/19/2024 04:55 Hgb 8.0 Gm/dL (Low)?? 05/19/2024 04:55 Hct 25.3 % (Low)?? 05/19/2024 04:55 MCV 88.2 femtoliters ()?? 05/19/2024 04:55 MCH 27.9 pg ()?? 05/19/2024 04:55 MCHC 31.6 Gm/dL (Low)?? 05/19/2024 04:55 Platelet Count 250 k/mm3 ()?? 05/19/2024 04:55 RDW-SD 57.0 femtoliters (High)?? 05/19/2024 04:55 MPV 10.1 femtoliters ()?? 05/19/2024 04:55 Nucleated RBC (Automated) 0.0 #/100 WBC'S ()?? 05/19/2024 04:55 Abs. NRBC 0.0 k/mm3 ()?? 05/19/2024 04:55 Abs. Neut 12.0 k/mm3 (High)?? 05/19/2024 04:55 Abs. Lymph 0.8 k/mm3 ()?? 05/19/2024 04:[address] [place] 0.8 k/mm3 ()?? 05/19/2024 04:55 Abs. Eo 0.1 k/mm3 ()?? 05/19/2024 04:55 Abs. Baso 0.0 k/mm3 ()?? 05/19/2024 04:55 Neut % 85.7 % (High)?? 05/19/2024 04:55 Lymph % 5.5 % (Low)?? 05/19/2024 04:55 [place] % 5.9 % ()?? 05/19/2024 04:55 Eos % 0.6 % ()?? 05/19/2024 04:55 Baso % 0.1 % ()?? 05/19/2024 04:55 Hemoglobin (POC) POC Cartridge 8.8 Gm/dL (Low)?? 05/12/2024 15:00 Hematocrit (POC) POC Cartridge 26 % (Low)?? 05/12/2024 15:00 Imm Gran 2.2 % ()?? 05/19/2024 04:55 Abs. Imm Gran 0.3 k/mm3 ()?? 05/19/2024 04:55 ?? BLOOD GAS pH Venous (POC) POC Cartridge 7.58 (High)?? 05/12/2024 15:00 pCO2 Venous (POC) POC Cartridge 33.5 mm Hg (Low)?? 05/12/2024 15:00 pO2 Venous (POC) POC Cartridge 17 mm Hg (Low)?? 05/12/2024 15:00 Est Bicarbonate (POC) POC Cartridge 31.2 mmol/L (High)?? 05/12/2024 15:00 % O2 Sat Venous (POC) POC Cartridge 33 ()?? 05/12/2024 15:00 Base Excess (POC) POC Cartridge 9 ()?? 05/12/2024 15:00 Specimen Type - Blood Gas VENOUS ()?? 05/12/2024 15:00 ? CHEM GENERAL Sodium 141 mmol/L ()?? 05/19/2024 04:54 Potassium 3.2 mmol/L (Low)?? 05/19/2024 04:54 Chloride 101 mmol/L ()?? 05/19/2024 04:54 Bicarbonate Level 29 mmol/L ()?? 05/19/2024 04:54 Anion Gap 11 mmol/L ()?? 05/19/2024 04:54 Sodium (POC) POC Cartridge 132 mmol/L (Low)?? 05/12/2024 15:00 Potassium (POC) POC Cartridge 3.7 mmol/L ()?? 05/12/2024 15:00 Glucose Level 105 mg/dL (High)?? 05/17/2024 06:00 Glucose (POC) POC Cartridge 137 (High)?? 05/12/2024 15:00 Glucose, POC 169 mg/dL (High)?? 05/21/2024 12:11 BUN 52 mg/dL (High)?? 05/17/2024 06:00 Creatinine-Blood 4.36 mg/dL (High)?? 05/17/2024 06:00 Estimated GFR Creatinine 11 ML/MIN/1.73 M2 ()?? 05/17/2024 06:00 Calcium 9.2 mg/dL ()?? 05/17/2024 06:00 Ionized Calcium (POC) POC Cartridge 1.05 mmol/L (Low)?? 05/12/2024 15:00 Phosphorus 2.6 mg/dL ()?? 05/16/2024 13:08 Magnesium 2.0 mg/dL ()?? 05/17/2024 06:00 Protein, Total 6.4 Gm/dL ()?? 05/12/2024 14:59 Albumin 2.6 Gm/dL (Low)?? 05/12/2024 14:59 AG Ratio 0.7 ()?? 05/12/2024 14:59 Alkaline Phosphatase 85 units/L ()?? 05/12/2024 14:59 AST (SGOT) 13 units/L ()?? 05/12/2024 14:59 ALT (SGPT) <5 units/L ()?? 05/12/2024 14:59 Bilirubin, Total 0.4 mg/dL ()?? 05/12/2024 14:59 Vitamin B12 Level 347 pg/mL ()?? 05/13/2024 08:14 Folic Acid Level 18.4 ng/mL ()?? 05/14/2024 04:46 ?? ENDOCRINE/TUMOR MARKER TSH 1.09 uIU/mL ()?? 05/13/2024 08:14 ? MISC. CHEMISTRY Procalcitonin 3.56 ng/mL ()?? 05/13/2024 08:14 ? SEROLOGY INF DISEASE C. Difficile Toxin by PCR NEGATIVE ()?? 05/15/2024 23:01 ? STOOL STUDIES GI PCR, Campylobacter NEGATIVE (N)?? 05/15/2024 23:01 GI PCR, Plesiomonas shigelloides NEGATIVE (N)?? 05/15/2024 23:01 GI PCR, Salmonella NEGATIVE (N)?? 05/15/2024 23:01 GI PCR, Vibrio NEGATIVE (N)?? 05/15/2024 23:01 GI PCR, Vibrio cholerae NEGATIVE (N)?? 05/15/2024 23:01 GI PCR, Yersinia enterocolitica NEGATIVE (N)?? 05/15/2024 23:01 GI PCR, Enteroaggregative E coli NEGATIVE (N)?? 05/15/2024 23:01 GI PCR, Enteropathogenic E coli NEGATIVE (N)?? 05/15/2024 23:01 GI PCR, Enterotoxigenic E coli NEGATIVE (N)?? 05/15/2024 23:01 GI PCR, Xbrac-shozr-dbxwxzdvr E coli NEGATIVE (N)?? 05/15/2024 23:01 GI PCR, Shigella/Enteroinvasive E coli NEGATIVE (N)?? 05/15/2024 23:01 GI PCR, Cryptosporidium NEGATIVE (N)?? 05/15/2024 23:01 GI PCR, Cyclospora cayetanensis NEGATIVE (N)?? 05/15/2024 23:01 GI PCR, Entamoeba histolytica NEGATIVE (N)?? 05/15/2024 23:01 GI PCR, Giardia lamblia NEGATIVE (N)?? 05/15/2024 23:01 GI PCR, Adenovirus F 40/41 NEGATIVE (N)?? 05/15/2024 23:01 GI PCR, Astrovirus NEGATIVE (N)?? 05/15/2024 23:01 GI PCR, Norovirus GI/GII NEGATIVE (N)?? 05/15/2024 23:01 GI PCR, Rotavirus A NEGATIVE (N)?? 05/15/2024 23:01 GI PCR, Sapovirus NEGATIVE (N)?? 05/15/2024 23:01 ?? TOXICOLOGY/TDM Tacrolimus Level 7.6 ng/mL ()?? 05/19/2024 04:54 ? URINE OTHER Est Creatinine Clearance 9.38 mL/min ()?? 05/17/2024 06:38 ? VIROLOGY Influenza A PCR NEGATIVE ()?? 05/12/2024 16:44 Influenza B PCR NEGATIVE ()?? 05/12/2024 16:44 RSV PCR NEGATIVE ()?? 05/12/2024 16:44 COVID-19 PCR Specimen Source NASAL ()?? 05/12/2024 16:44 COVID-19 PCR Result NEGATIVE ()?? 05/12/2024 16:44 ? 32??minutes spent on discharge * Augusta Baltazar RN: PERFORM Event Display: Patient Education/Instruction Authored Date: [id number] Inpatient Adult Discharge Instructions. [address] [address] Name: GRETA SHARP : 1960?? Visit: 05/12/2024 17:00?? Current Date: 05/21/2024 14:49 ?? Account: [id number]?? Inpatient Adult Discharge Instructions We would like [...] and their families. Surveys are administered by [employer] ?? If further treatment with your primary care physician or another doctor is recommended, it is important for you to keep the appointment. Call your primary care physician or return to the Emergency Department immediately if your condition worsens, fails to improve, or new symptoms develop. If you need to find a doctor, you can call [facility] [employer] for a referral at [phone] or toll free at [phone]) or log in to [email or web address].. ?? [facility], in keeping with [facility] guidance, no longer requires face masks [...] a health care johnny of your choosing. [employer] is a website that allows you to securely view your medical information including your hospital discharge summary, office visit summaries, medications and follow-up visits. You can also request appointments, renew medications, and request access to your medical information using a health care johnny of your choosing, or just ask a question. You can enroll at [email or web address] or register during your next office visit. You have been discharged from [facility], Patient Care Unit: S64??. If you have any questions regarding these instructions, including results of studies pending, afteryou leave, please call us and we will be happy to assist you 11/11. [facility] Your Care Team Attending Physician Mohinder Duffy MD?? Consulting Providers Mohinder Duffy MD?? Discharging Providers Mohinder Duffy MD Reason for Your Visit Pt is coming from [facility] when staff reports AMS,Patient is supposed to be at ??dialysis today and is too weak to go. Facility is sending patient to ED for dialysis. Pt is awake oriented x3 for EMS. Staff at facility said she was altered because sh?? Your Diagnosis Acute on chronic kidney failure Anemia of chronic kidney failure Dementia Diabetes mellitus General medical Transplant rejection Tests Performed Below is a partial list of the tests performed during your hospitalization. You may have had other tests and procedures not included in this list. Please discuss all test results with your provider. BASE EXCESS POC CARTRIDGE Basic Metabolic Panel BUN C diff PCR, w Rfx Toxin/Ag CALCIUM IONIZED POC CART CBC w/ Differential Comprehensive Metabolic Panel COVID-19, RSV, and Flu A/B, Rapid PCR Creatinine Folate Level GI Profile, Stool, PCR Glucose Level GLUCOSE POC GLUCOSE POC CARTRIDGE H + H HEMATOCRIT POC CARTRIDGE HEMOGLOBIN POC CARTRIDGE Lytes Magnesium Level MRSA/MSSA PCR Nasal Swab Phosphorus Level POTASSIUM POC CARTRIDGE Procalcitonin Level SODIUM POC CARTRIDGE TSH TSH with T4 Reflex (Adults Only) Type and Screen VBG POC CARTRIDGE VITAMIN B12 IR Generic Order XR C-Arm < 1 Hour XR Chest Portable Add On Lab Order?? BUN?? Base Excess (Lab) POC Cartridge (BASE EXCESS POC CARTRIDGE)?? Basic Metabolic Panel?? C.diff PCR, w Rfx Toxin/Ag (C diff PCR, w Rfx Toxin/Ag)?? CBC (COMPLETE BLOOD COUNT)?? CBC w/ Differential?? COVID-19, RSV, and Flu A/B, Rapid PCR?? Comprehensive Metabolic Panel?? Creatinine?? Electrolytes?? Folate Level?? GI Profile, Stool, PCR?? Glucose (Lab) POC Cartridge (GLUCOSE POC CARTRIDGE)?? Glucose Level?? Glucose POC?? Hematocrit (Lab) POC Cartridge (HEMATOCRIT POC CARTRIDGE)?? Hemoglobin (Lab) POC Cartridge (HEMOGLOBIN POC CARTRIDGE)?? Hgb + Hct (H + H)?? IR Generic Order?? IR US Images?? Ionized Calcium(POC) POC Cartridge (CALCIUM IONIZED POC CART)?? Legionella Antigen Urine?? MRSA/MSSA PCR Nasal Swab?? Magnesium Level?? Phosphorus Level?? Potassium (Lab) POC Cartridge (POTASSIUM POC CARTRIDGE)?? Procalcitonin Level?? Sodium (Lab) POC Cartridge (SODIUM POC CARTRIDGE)?? Sputum, Gram Smear w/Culture Rfx (Culture Sputum w/ Gram Smear)?? Strep Pneumoniae Urinary Ag?? TSH?? TSH with T4 Reflex (Adults Only)?? Tacrolimus Level (TACROLIMUS)?? Transfuse RBCs?? Type and Screen?? VBG (Lab) POC Cartridge (VBG POC CARTRIDGE)?? Vitamin B12 Level (VITAMIN B12)?? C-Arm < 1 Hour?? Chest Portable (XR Chest Portable)?? Primary Care Provider Marita Wetzel DO? Advance Directive Health Care Proxy on File Yes - Health Care Proxy Yes - MOLST Discharge Vitals Temperature: 97.7 DegF Height: 160 cm Pulse Rate: 66 bpm Weight: 51.7 kg Respiratory Rate: 20 br/min Body Mass Index: 20.2 kg/m2 Systolic Blood Pressure: 120 mm Hg Body surface area: 1.52 Diastolic Blood Pressure: 57 mm Hg ?? Oxygen Saturation: 100 % ?? Studies Pending All studies ordered during this hospital stay have been completed unless listed below. Please discuss all pending results with your provider listed above in these instructions. ?? Add On Lab Order?? CBC (COMPLETE BLOOD COUNT)?? Electrolytes?? Legionella Antigen Urine?? Sputum, Gram Smear w/Culture Rfx (Culture Sputum w/ Gram Smear)?? Strep Pneumoniae Urinary Ag?? Tacrolimus Level (TACROLIMUS)?? Transfuse RBCs?? What to do next Instructions From Your Doctor -Please follow-up with primary care physician for reviewing hospitalization course, reviewing list of medications and repeating a set of blood work in 1 week's time. -please continue outpatient follow-up with aircraft cylinder mechanic for medication type??titration, continued dialysis?? -Present to the emergency department if you experience any of the following symptoms including but not limited to fevers, shortness of breath or any other issues. -PCP can refer to [facility] at [address] [place] [address] for comprehensive testing. ?? Patient changes: Tacrolimus dose has been decreased to 8 mg daily. Mycophenolate has been discontinued. ? Orders? 05/21/24 14:33:00 EST?? Scheduled Follow-Up Appointments Friday. 2024 10:30 AM EDT ?? Where: [facility] Status: Pending You Need to Schedule the Following Appointments Follow Up with??Marita Wetzel DO Where: [address] [place] [address]- Discharge Medications GRETA SHARP :1960 Visit Date:05/12/2024 Medications: Please continue your medications until treatment is completed or stopped by your provider. Medications not listed below should be discontinued. Discuss any questions related to medications with your provider. What How Much When Instructions Next Dose Changed Sucralfate (Carafate 1 gm oral tablet) 1 gram Oral 3 times a day before meals and bedtime as needed for Dyspepsia Changed Tacrolimus (tacrolimus 4 mg oral tablet, extended release) 8 Milligram Oral Daily before breakfast 05/22/2024 Unchanged Acetaminophen (acetaminophen 325 mg oral tablet) 650 Milligram Oral Every 6 hours as needed for Pain , Moderate not to exceed 4000 mg/ day ?? as needed Unchanged Carvedilol (carvedilol 25 mg oral tablet) 1 tab(s) Oral Twice a day 05/21/2024 Unchanged DiphenhydrAMINE (Benadryl 25 mg oral capsule) 1 capsule Oral Twice a day as needed for for itching as needed Unchanged Docusate (docusate sodium 100 mg oral tablet) 1 tab(s) Oral Twice a day as needed for Constipation Duration: 30 Days as needed Unchanged Epoetin Bassem (Procrit 68907 u/ ml injectable solution) See instructions Subcutaneous Injection ?? Unchanged Hydromorphone (Dilaudid 4 mg oral tablet) 1 tab(s) Oral Every 4 hours as needed for for pain as needed Unchanged Insulin Lispro (insulin lispro 100 units/ mL injectable solution) 2-10 units Subcutaneous Injection 3 times a day before meals 150 - 199 ??2 units ??Call if less than 70, 200 - 249 ??4 units, 250 - 299 ??6 units, 300 - 349 ??8 units, 350 - 399 ??10 units ??Call if greater than 400 ?? 05/21/2024 Unchanged Isosorbide Mononitrate (isosorbide mononitrate 30 mg oral tablet, extended release) 30 Milligram Oral Daily in the morning 05/22/2024 Unchanged Magnesium Oxide (magnesium oxide 400 mg oral tablet) 400 Milligram Oral Twice a day Duration: 3 Days 05/21/2024 Unchanged Multivitamin (Nephro Vitamins oral tablet) 1 tab(s) Oral Daily 05/22/2024 Unchanged Pantoprazole (pantoprazole 40 mg oral delayed release tablet) 1 tab(s) Oral Daily 05/22/2024 Unchanged PredniSONE (predniSONE 5 mg oral tablet) 1.5 tab(s) Oral Daily Duration: 30 Days 05/22/2024 Unchanged Sertraline (sertraline 25 mg oral tablet) 1 tab(s) Oral Daily 05/22/2024 Unchanged sodium bicarbonate (sodium bicarbonate 650 mg oral tablet) 1,300 Milligram Oral Twice a day 05/21/2024 ?? What How Much When Comments Stop Taking Amlodipine (AmLODipine Tablet) 10 Milligram Oral Daily Stop Taking Mycophenolate Sodium (mycophenolic acid 360 mg oral delayed release tablet) 360 Milligram Oral Twice a day Prescription Given During Visit No new medications prescribed at time of discharge.?? Laboratory Results Below is a partial list of the most recent Laboratory test results done prior to this discharge. You may have had other tests and procedures not included in this list. Please discuss all test resultswith your provider. Est Creatinine Clearance - 9.38 mL/min (05/17/2024) RBC Available - PT (05/18/2024) RBC Unit ID - [id number] (05/18/2024) BASE EXCESS POC CARTRIDGE (05/12/2024) ???Base Excess (POC) POC Cartridge - 9 Basic Metabolic Panel (05/17/2024) ???Sodium - 140 mmol/L???Potassium - 4.4 mmol/L???Chloride - 100 mmol/L???Bicarbonate Level - 27 mmol/L???Anion Gap - 13 mmol/L???Glucose Level - 105 mg/dL???BUN - 52 mg/dL???Creatinine-Blood - 4.36 mg/dL???Estimated GFR Creatinine - 11 ML/MIN/1.73 M2???Calcium - 9.2 mg/dL BUN (05/13/2024) ???BUN - 53 mg/dL C diff PCR, w Rfx Toxin/Ag (05/15/2024) ???C. Difficile Toxin by PCR - NEGATIVE CALCIUM IONIZED POC CART (05/12/2024) ???Ionized Calcium (POC) POC Cartridge - 1.05 mmol/L CBC w/ Differential (05/19/2024) ???WBC - 14.0 k/mm3???RBC - 2.87 m/mm3???Hgb - 8.0 Gm/dL???Hct - 25.3 %???MCV - 88.2 femtoliters???MCH - 27.9 pg???MCHC - 31.6 Gm/dL???Platelet Count - 250 k/mm3???RDW-SD - 57.0 femtoliters???MPV - 10.1 femtoliters???Nucleated RBC (Automated) - 0.0 #/100 WBC'S???Abs. NRBC - 0.0 k/mm3???Abs. Neut - 12.0 k/mm3???Abs. Lymph - 0.8 k/mm3???Abs. [place] - 0.8 k/mm3???Abs. Eo - 0.1 k/mm3???Abs. Baso - 0.0 k/mm3???Neut % - 85.7 %???Lymph % - 5.5 %???[place] % - 5.9 %???Eos % - 0.6 %???Baso % - 0.1 %???Imm Gran - 2.2 %???Abs. Imm Gran - 0.3 k/mm3 Comprehensive Metabolic Panel (05/12/2024) ???Sodium - 136 mmol/L???Potassium - 3.9 mmol/L???Chloride - 94 mmol/L???Bicarbonate Level - 28 mmol/L???Anion Gap - 14 mmol/L???Glucose Level - 135 mg/dL???BUN - 45 mg/dL???Creatinine-Blood - 3.21 mg/dL???Estimated GFR Creatinine - 16 ML/MIN/1.73 M2???Calcium - 9.1 mg/dL???Protein, Total - 6.4 Gm/d L???Albumin - 2.6 Gm/dL???AG Ratio - 0.7???Alkaline Phosphatase - 85 units/L???AST (SGOT) - 13 units/L? ?ALT (SGPT) - <5 units/L? ?Bilirubin, Total - 0.4 mg/dL COVID-19, RSV, and Flu A/B, Rapid PCR (05/12/2024) ???Influenza A PCR - NEGATIVE???Influenza B PCR - NEGATIVE???RSV PCR - NEGATIVE???COVID-19 PCR Specimen Source - NASAL???COVID-19 PCR Result - NEGATIVE Creatinine (05/13/2024) ???Creatinine-Blood - 3.76 mg/dL???Estimated GFR Creatinine - 13 ML/MIN/1.73 M2 Folate Level (05/14/2024) ???Folic Acid Level - 18.4 ng/mL GI Profile, Stool, PCR (05/15/2024) ???GI PCR, Campylobacter - NEGATIVE???GI PCR, Plesiomonas shigelloides - NEGATIVE???GI PCR, Salmonella - NEGATIVE???GI PCR, Vibrio - NEGATIVE???GI PCR, Vibrio cholerae - NEGATIVE???GI PCR, Yersinia enterocolitica - NEGATIVE???GI PCR, Enteroaggregative E coli - NEGATIVE???GI PCR, Enteropathogenic E coli - NEGATIVE???GI PCR, Enterotoxigenic E coli - NEGATIVE???GI PCR, Lnljc-flase-wrvftiwmu E coli -NEGATIVE???GI PCR, Shigella/Enteroinvasive E coli - NEGATIVE???GI PCR, Cryptosporidium - NEGATIVE???GI PCR, Cyclospora cayetanensis - NEGATIVE???GI PCR, Entamoeba histolytica - NEGATIVE???GI PCR, Giardia lamblia - NEGATIVE???GI PCR, Adenovirus F 40/41 - NEGATIVE???GI PCR, Astrovirus - NEGATIVE???GIPCR, Norovirus GI/GII - NEGATIVE???GI PCR, Rotavirus A - NEGATIVE???GI PCR, Sapovirus - NEGATIVE Glucose Level (05/13/2024) ???Glucose Level - 157 mg/dL GLUCOSE POC (05/21/2024) ???Glucose, POC - 169 mg/dL GLUCOSE POC CARTRIDGE (05/12/2024) ???Glucose (POC) POC Cartridge - 137 H + H (05/17/2024) ???Hgb - 7.0 Gm/dL???Hct - 23.6 % HEMATOCRIT POC CARTRIDGE (05/12/2024) ???Hematocrit (POC) POC Cartridge - 26 % HEMOGLOBIN POC CARTRIDGE (05/12/2024) ???Hemoglobin (POC) POC Cartridge - 8.8 Gm/dL Lytes (05/19/2024) ???Sodium - 141 mmol/L???Potassium - 3.2 mmol/L???Chloride - 101 mmol/L???Bicarbonate Level - 29 mmol/L???Anion Gap - 11 mmol/L Magnesium Level (05/17/2024) ???Magnesium - 2.0 mg/dL MRSA/MSSA PCR Nasal Swab (05/13/2024) ???MRSA PCR Result - Negative, MRSA target DNA not detected.???S Aureus PCR Result - Negative, SA target DNA not detected. Phosphorus Level (05/16/2024) ???Phosphorus - 2.6 mg/dL POTASSIUM POC CARTRIDGE (05/12/2024) ???Potassium (POC) POC Cartridge - 3.7 mmol/L Procalcitonin Level (05/13/2024) ???Procalcitonin - 3.56 ng/mL SODIUM POC CARTRIDGE (05/12/2024) ???Sodium (POC) POC Cartridge - 132 mmol/L TSH (05/13/2024) ???TSH - 1.09 uIU/mL TSH with T4 Reflex (Adults Only) (05/12/2024) ???TSH - 1.18 uIU/mL Type and Screen (05/17/2024) ???Blood Type - A Positive???Antibody Screen - Negative VBG POC CARTRIDGE (05/12/2024) ???pH Venous (POC) POC Cartridge - 7.58???pCO2 Venous (POC) POC Cartridge - 33.5 mm Hg???pO2 Venous(POC) POC Cartridge - 17 mm Hg???Est Bicarbonate (POC) POC Cartridge - 31.2 mmol/L???% O2 Sat Venous (POC) POC Cartridge - 33???Specimen Type - Blood Gas - VENOUS VITAMIN B12 (05/13/2024) ???Vitamin B12 Level - 347 pg/mL You will be contacted within 72 hours with your results. Allergies (NKA means No Known Allergies) codeine??(FAINTING/HIVES) oxyCODONE Problems Active Problems??(19) Anemia of chronic kidney failure?? Carcinoid, of [...] Metabolic acidosis?? Mood disorder?? Nausea & vomiting?? Education Materials Below is the list of Educational Leaflet Providered with your Discharge Instructions. Valuables and Belongings I fully understand and agree that [facility] accepts no responsibility for all my personal [...] of Valuable and Belonging List: With patient Possessions released to: No personal belongings brought to preop. Date for Pt to Sign Valuables/Belongings: 05/17/24 14:35:00 ?? Valuables & Belongings ?? Clothes Electronic devices Jewelry Monetary Items Personal devices Miscellaneous Medications (Valuables) Valuables at Bedside ?? Cell phone, Other: Freezer Tunnel Operator Bracelet, Earrings, Rings ? Other: ?? Valuables Sent Home ? Valuables Sent to Security ? Valuables Sent to Locker ? Other Discharge Information ? Pulmonary Rehab Status?? Pulmonary Rehab Discharge Status?? Respiratory Rate: 20 br/min ? Common Emergency Awareness Tips IS [...] are strongly encouraged to quit. Please call [employer] at [phone] or [phone] ([phone]) or log in to [email or web address] for referrals to smoking cessation programs. ?? 370 Suicide & Crisis Lifeline is available 11/11 if you or someone you know needs to find a reason to keep living. By calling 988 you'll be connected to a skilled, trained counselor at a crisis center in your area. INPATIENT DISCHARGE INSTRUCTIONS SIGNATURE PAGE GRETA SHARP Location:[facility] Registration Date and Time:05/12/2024 17:00 EST Primary Care Physician: Marita Wetzel DO, Attending Physician: Chuck HERRERA [facility], I GRETA SHARP, have received the above patient education materials/instructions and have verbalized understanding. If ambulance or transport services are being used I further acknowledge being given a choice of service. ?? If you need to contact me, please call me at this number: . Patient/Swing Grinder Name: Patient/Swing Grinder Signature: Relationship to Patient: Witness Name/Signature: Date: * Event Display: Provider Clarification Note Please click on pdf link to open report * Event Display: Provider Clarification Note Please click on pdf link to open report * Event Display: Provider Clarification Note Please click on pdf link to open report Patient Care team information Care Team Personnel Name: Naila Saucedo RN Position: [facility] RN Member Role: Primary Care Nurse Name: Heather Eagle RN Position: [facility] RN Member Role: Primary Care Nurse Name: Marita King RN Position: [facility] RN Member Role: Primary Care Nurse Name: Silvia Almazan RN Position: [facility] ED RN W/OE and Tasks Member Role: Primary Care Nurse Name: Navya Chauhan RN Position: [facility] RN Member Role: Primary Care Nurse Name: Maritza Alvarez RN Position: [facility] RN Member Role: Primary Care Nurse Name: Rachel Rucker RN Position: [facility] RN Member Role: Primary Care Nurse Name: Melissa Jasso RN Position: [facility] RN Member Role: Primary Care Nurse Name: Criss Pete Position: [facility] RN Member Role: Primary Care Nurse Name: Gianni Pacheco RN Position: [facility] RN Member Role: Primary Care Nurse Name: Myrna Kohler RN Position: [facility] RN Member Role: Primary Care Nurse Name: Pauline Aguayo Position: [facility] Outreach Member Role: Lifetime Consulting Physician Name: Marita Thakur RN Position: [facility] RN Member Role: Primary Care Nurse Name: Lanie Ferrell RN Position: [facility] RN Member Role: Primary Care Nurse Name: Tristen Branch MD Position: [facility] JOB TRAINING SUPERVISOR MD Member Role: Lifetime JOB TRAINING SUPERVISOR Physician Name: Kvng Hernandez RN Position: [facility] RN Member Role: Primary Care Nurse Name: Gena Jiang RN Position: [facility] RN Member Role: Primary Care Nurse Name: Geo Pitts LPN Position: [facility] RN Member Role: Primary Care Nurse Name: Sudhir Overton RN Position: [facility] RN Member Role: Primary Care Nurse Name: Sirisha Mccauley RN Position: [facility] RN Member Role: Primary Care Nurse Name: Marcelino Ramirez RN Position: [facility] RN Member Role: Primary Care Nurse Name: Scottie Hunter RN Position: [facility] RN Member Role: Primary Care Nurse Name: Vicki Carson NP Position: [facility] Associate Professional Member Role: Lifetime Consulting Provider Address: [address] [facility] [place] [place] [address]- [place] Tele[employer]: Name: Petros Lindquist MD Position: [facility] Renal MD Member Role: Lifetime Consulting Physician Address: [address] [facility] [place] [place] [address]- [place] Tele[employer]: Name: Lashanda Reese RN Position: [facility] RN Member Role: Primary Care Nurse Name: Carmen Lucio RN Position: [facility] RN Member Role: Primary Care Nurse Name: Estefany Willis RN Position: [facility] RN Member Role: Primary Care Nurse Name: Miryam Amor RN Position: [facility] RN Member Role: Primary Care Nurse Name: Marita Wetzel DO Position: [facility] Outreach Member Role: PCP Address: [address] [place] [address]- [place] Telecom: Name: Teim Lind RN Position: [facility] RN Member Role: Primary Care Nurse Name: De Valdovinos RN Position: [facility] RN Member Role: Primary Care Nurse Name: Chandrika Corbin RN Position: [facility] RN Member Role: Primary Care Nurse Name: Liliana Villalta RN Position: [facility] RN Member Role: Primary Care Nurse Name: Jerod Adames DO Position: [facility] Renal MD Member Role: Lifetime Consulting Physician Address: [address] [facility] [place] [place] [address]- [place] Tele[employer]: Name: Breanna Walker RN Position: [facility] RN Member Role: Primary Care Nurse Name: Omayra Jeronimo RN Position: [facility] RN Member Role: Primary Care Nurse Name: Yany Cobb RN Position: [facility] RN Member Role: Primary Care Nurse Name: David Schmitt RN Position: [facility] RN Member Role: Primary Care Nurse Name: Madelaine Meyer RN Position: [facility] RN Member Role: Primary Care Nurse Name: Jeremiah Suarez RN Position: [facility] RN Member Role: Primary Care Nurse Name: Cecily Tamez Position: [facility] RN Member Role: Primary Care Nurse Name: Gianni Cardoza RN Position: [facility] RN Member Role: Primary Care Nurse Name: Ishaan Saucedo Position: [facility] RN Member Role: Primary Care Nurse Name: Ivan Dominguez RN Position: [facility] RN Member Role: Primary Care Nurse Name: Keisha Phelps RN Position: [facility] RN Member Role: Primary Care Nurse Name: Cory Red MD Position: [facility] Outreach Member Role: Lifetime Consulting Physician Address: [address] [facility] [address] Telecom: Name: Samina Juarez RN Position: [facility] RN Member Role: Primary Care Nurse Name: Regina Hassan RN Position: [facility] RN Member Role: Primary Care Nurse Name: Lamonte Huynh RN Position: [facility] RN Member Role: Primary Care Nurse Name: Radha Herron RN Position: [facility] RN Member Role: Primary Care Nurse Name: Nuvia Crenshaw RN Position: [facility] RN Member Role: Primary Care Nurse Name: Twila Pfeiffer RN Position: [facility] RN Member Role: Primary Care Nurse Name: Augusta Griffin RN Position: [facility] RN Member Role: Primary Care Nurse Name: Marisela Ambrose RN Position: [facility] RN Member Role: Primary Care Nurse Name: Cari Tabares RN Position: [facility] RN Member Role: Primary Care Nurse Name: Brian Washington RN Position: [facility] RN Member Role: Primary Care Nurse Name: Nadja Wilkes RN Position: [facility] RN Member Role: Primary Care Nurse Name: Yesenia Calderon RN Position: [facility] SN RN Member Role: Primary Care Nurse Name: Jose Francisco Magallanes MD Position: [facility] Renal MD Member Role: Lifetime Consulting Physician Address: [address] [facility] [address] Telecom: Name: Denise Major RN Position: [facility] RN Member Role: Primary Care Nurse Name: London Leong RN Position: [facility] OB RN Member Role: Primary Care Nurse Name: Nicolasa Riley RN Position: [facility] RN Member Role: Primary Care Nurse Name: Sameera Holloway RN Position: [facility] RN Member Role: Primary Care Nurse Name: Ariana Staton RN Position: [facility] RN Member Role: Primary Care Nurse Name: Marily Palua RN Position: [facility] RN Member Role: Primary Care Nurse Name: Sarita Jean Baptiste RN Position: [facility] RN Member Role: Primary Care Nurse Name: Michael Velez RN Position: [facility] RN Member Role: Primary Care Nurse Name: Samina Moeller RN Position: [facility] Hospital Wood Casket Maker Member Role: Primary Care Nurse Care Team Related Persons Name: ARMIN BAILEY Name: ALFRED SHARP Name: JOSE G SHARP Name: SUNNY SHARP Name: SUNNY SHARP Insurance Providers Guarantor name: GRETA SHARP Health Plan Information #: 1 Payer: MEDICARE A INPT 25 Member Number: [id number] Policy Number: NA Group Number: NA Health Plan Information #: 2 Payer: MEDICARE PART B OUTPT Member Number: [id number] Policy Number: NA Group Number: NA Health Plan Information #: 3 Payer: FOR LIFE MCR A ONLY Member Number: [id number] Policy Number: NA Group Number: [id number] Health Plan Information #: 4 Payer: FOR LIFE MCR A ONLY Member Number: [id number] Policy Number: NA Group Number: [id number]
--- OUTSIDE RECORDS SUMMARY | 2024-05-27 20:22 | XMS_ITS | Encounter Summary ---
Author Organization [facility] Address [address] [place] [address] Care Team Providers Care Roll Or Tape Edge Machine Operator Name Role Phone Mary JaneMarita yousif Primary Care Provider [phone]- [phone] Encounter Details Date Type Department Care Team (Late st Contact Info) Description 04/17/2024 Lab Requisition [facility] - Main Lab [address] [facility] [place] [address] Catalina Burr MD [address] [place] [address] End stage renal disease (CMS/HCC); Anemia, unspecified Social History Tobacco Use Types [...] Date/Time Associated Diagnosis Comments TACROLIMUS LEVEL Routine 04/17/2024 5:33 AM EST End stage renal disease (CMS/HCC) Anemia, unspecified RETICULOCYTE COUNT Routine 04/17/2024 5: 33 AM EST End stage renal disease (CMS/HCC) Anemia, unspecified COMPLETE BLOOD COUNT Routine 04/17/2024 5:33 AM EST End stage renal disease (CMS/HCC) Anemia, unspecified COMPREHENSIVE METABOLIC PANEL Routine 04/17/2024 5:33 AM EST End stage renal disease (CMS/HCC) Anemia, unspecified documented in this encounter Results * (ABNORMAL) Tacrolimus level (04/17/2024 5:33 AM EST) Tacrolimus Level 3.8(L) 5.0 - 20.0 ng/mL 04/19/2024 11:04 AM EST [facility] Comment: Additional Information: Toxic [...] developed and the performance characteristics determined by [facility]. This confirmation testing has not been cleared or approved by the FDA. The laboratory is regulated under CLIA as qualified to perform high-complexity testing. This test is used for patient testing purposes. It should not be regarded as investigational or for research. Test performed at [facility], [facility] [address] [place], [place] ??[address] ? [phone] Ashtyn Leigh MD, PhD - Director Speech Blood Venous blood specimen / Unknown Venipuncture / Unknown 04/17/2024 5:33 AM EST 04/17/2024 9:33 AM EST Catalina Burr MD LAB BLOOD ORDERABLES [facility] [place] [address] * (ABNORMAL) Reticulocyte count (04/17/2024 5:33 AM EST) Retic Ct Abs 0.050 0.030 - 0.090 M/mcL LAB HEMETOLOGY METHOD 04/17/2024 10:[address] [facility] Retic Ct Pct 1.8(H) 0.7 - 1.7 % LAB HEMETOLOGY METHOD 04/17/2024 10:42 AM [facility] Immature Retic Fract 24.7(H) 2.3 - 15.9 % LAB HEMETOLOGY METHOD 04/17/2024 10:42 AM [facility] Reticulocyte Hemoglobin 28.3(L) >29.0 pcg LAB HEMETOLOGY METHOD 04/17/2024 10:42 AM [facility] Blood Venous blood specimen / Unknown Venipuncture / Unknown 04/17/2024 5:33 AM EST 04/17/2024 9:33 AM EST Catalina Burr MD LAB BLOOD ORDERABLES [facility] [address] [place] [address], * (ABNORMAL) Comprehensive metabolic panel (04/17/2024 5:33 AM EST) Sodium 146(H) 133 - 145 mmol/L LAB CHEMISTRY METHOD 04/17/2024 11:[address] [facility] Potassium 3.4(L) 3.5 - 5.5 mmol/L LAB CHEMISTRY METHOD 04/17/2024 11:[address] [facility] Chloride 116(H) 96 - 110 mmol/L LAB CHEMISTRY METHOD 04/17/2024 11:02 AM [facility] CO2 21 21 - 32 mmol/L LAB CHEMISTRY METHOD 04/17/2024 11:02 AM [facility] Anion Gap 9 3 - 11 LAB CHEMISTRY METHOD 04/17/2024 11:02 AM [facility] Glucose 61(L) 70 - 100 mg/dL LAB CHEMISTRY METHOD 04/17/2024 11:02 AM [facility] BUN 48(H) 5 - 25 mg/dL LAB CHEMISTRY METHOD 04/17/2024 11:02 AM [facility] Creatinine 3.71(H) 0.50 - 1.10 mg/dL LAB CHEMISTRY METHOD 04/17/2024 11:02 AM [facility] eGFR 13(L) >=60 mL/min/1. 73m2 LAB CHEMISTRY METHOD 04/17/2024 11:02 AM [facility] Comment:Calculation based on the??Chronic Kidney Disease Epidemiology Collaboration (CKD-EPI) equation refit??without adjustment for race. BUN/Creatinine Ratio 12.9 LAB CHEMISTRY METHOD 04/17/2024 11:02 AM [facility] Calcium 8.7 8.5 - 10.5 mg/dL LAB CHEMISTRY METHOD 04/17/2024 11:02 AM [facility] AST (SGOT) 8(L) 10 - 42 unit/L LAB CHEMISTRY METHOD 04/17/2024 11:02 AM [facility] ALT (SGPT) 9(L) 10 - 60 unit/L LAB CHEMISTRY METHOD 04/17/2024 11:02 AM [facility] Alkaline Phosphatase 61 42 - 121 unit/L LAB CHEMISTRY METHOD 04/17/2024 11:02 AM [facility] Total Protein 5.6(L) 6.0 - 8.0 g/dL LAB CHEMISTRY METHOD 04/17/2024 11:02 AM [facility] Albumin 2.0(L) 3.2 - 5.0 g/dL LAB CHEMISTRY METHOD 04/17/2024 11:02 AM [facility] Total Bilirubin 0.5 0.0 - 1.4 mg/dL LAB CHEMISTRY METHOD 04/17/2024 11:02 AM [facility] Blood Venous blood specimen / Unknown Venipuncture / Unknown 04/17/2024 5:33 AM EST 04/17/2024 9:33 AM EST Catalina Burr MD LAB BLOOD ORDERABLES [facility] [address] [place] [address], * (ABNORMAL) Complete blood count (04/17/2024 5:33 AM EST) WBC 9.3 4.8 - 10.8 K/mcL LAB HEMETOLOGY METHOD 04/17/2024 10:42 AM [facility] RBC 3.10(L) 3.80 - 4.80 M/mcL LAB HEMETOLOGY METHOD 04/17/2024 10:42 AM [facility] Hemoglobin 8.3(L) 11.5 - 16.0 g/dL LAB HEMETOLOGY METHOD 04/17/2024 10:42 AM [facility] Hematocrit 30.3(L) 35.0 - 47.0 % LAB HEMETOLOGY METHOD 04/17/2024 10:42 AM [facility] MCV 98.1(H) 79.0 - 98.0 FL LAB HEMETOLOGY METHOD 04/17/2024 10:42 AM [facility] MCH 26.9(L) 27.0 - 32.0 pcg LAB HEMETOLOGY METHOD 04/17/2024 10:42 AM [facility] MCHC 27.4(L) 32.0 - 37.0 g/dL LAB HEMETOLOGY METHOD 04/17/2024 10:42 AM [facility] RDW 16.9(H) 11.0 - 15.0 % LAB HEMETOLOGY METHOD 04/17/2024 10:42 AM [facility] Platelets 206 130 - 400 K/mcL LAB HEMETOLOGY METHOD 04/17/2024 10:42 AM [facility] MPV 10.1 7.0 - 11.0 FL LAB HEMETOLOGY METHOD 04/17/2024 10:42 AM [facility] NRBC 0.0 <1.0 % LAB HEMETOLOGY METHOD 04/17/2024 10:42 AM [facility] NRBC Absolute 0.00 <0.10 K/mcL LAB HEMETOLOGY METHOD 04/17/2024 10:42 AM [facility] Blood Venous blood specimen / Unknown Venipuncture / Unknown 04/17/2024 5:33 AM EST 04/17/2024 9:33 AM EST Catalina Burr MD LAB BLOOD ORDERABLES [facility] [address] [place] [address], documented in this encounter Visit Diagnoses Diagnosis End stage renal disease ([facility]) End stage renal disease Anemia, unspecified documented in this encounter Care Teams Roll Or Tape Edge Machine Operator Relationship Specialty Start Date End Date Marita Wetzel DO [address] [place] [address] PCP - General 01/09/23 documented as of this encounter
--- OUTSIDE RECORDS SUMMARY | 2024-05-27 20:22 | XMS_ITS | Clinical Summary ---
Author Organization [employer] Address [address] [place] [address] 7 [place] [address] Care Team Providers Care Personal Chef Name Role Phone DevendraMarita perez Primary Care Provider + [phone] Allergies Active Allergy Reactions Criticality Noted Date Comments Codeine Hives High 11/12/2011 Other reaction(s): FAINTING/HIVES Oxycodone 07/30/2022 Oxycodone-Acetaminophen Hives High 10/05/2012 Other reaction(s): Nausea / Vomiting Medications * This document contains information received from the source organization and may not represent a complete record from that organization. Continuous Blood Gluc Shot Tube Machine Tender ([employer] Seema 2 [place]) device 3 Active dorzolamide-awa lol (Cosopt) 22.3-6.8 MG/ML ophthalmic solution Administer 1 drop into both eyes 2 times daily. 3 Active sodium bicarbonate 650 MG tablet Take 2 tablets by mouth 3 times daily. 3 Active ondansetron (Zofran) 4 MG tablet TAKE 1 TABLET BY MOUTH EVERY 8 HOURS IF NEEDED FOR NAUSEA OR VOMITING. 3 Active thiamine (Vitamin B-1) 100 MG tablet Take 1 tablet by mouth in the morning. Active amLODIPine (Norvasc) 10 MG tablet Take 1 tablet by mouth 1 (one) time each day. 3 Active carvedilol (Coreg) 25 MG tablet TAKE 1 TABLET BY MOUTH EVERY DAY IN THE MORNING AND IN THE EVENING WITH MEALS 3 Active folic acid (Folvite) 1 MG tablet Take 1 tablet by mouth 1 (one) time each day. 3 Active cyanocobalamin (Vitamin B-12) 1000 MCG tablet Take 1 tablet by mouth in the morning. Active Continuous Blood Gluc Sensor (FreeStyle Seema 2 Sensor) [facility] Use as directed Active mycophenolate (Myfortic) 360 MG EC tablet Take 720 mg by mouth 2 times daily. 4 Active pantoprazole (ProtoNix) 40 MG EC tablet TAKE 1 TABLET (40 MG) BY MOUTH DAILY BEFORE BREAKFAST DO NOT CRUSH, CHEW, OR SPLIT 4 Active hydrOXYzine pamoate (Vistaril) 25 MG capsule Take 1 capsule (25 mg) by mouth every 6 (six) hours if needed for anxiety. 30 capsule 1 4 Active tacrolimus ER (Envarsus XR) 1 MG tablet ER Take 6 mg by mouth Once per day. Dose as per renal/transplan t team in accordance with labs. 4 Active sertraline (Zoloft) 25 MG tablet TAKE 1 TABLET BY MOUTH EVERY DAY IN THE MORNING 30 tablet 3 4 Active isosorbide mononitrate ER (Imdur) 30 MG 24 hr tablet Take 30 mg by mouth in the morning. 4 Active potassium chloride CR (Klor-Con M20) 20 MEQ ER tablet Take 2 pills 3x a day x 3 days then take 2 pills daily 4 Active predniSONE (Deltasone) 2.5 MG tablet Take 3 tablets by mouth Once per day. 4 Active sucralfate (Carafate) 1 g tablet Take 1 g by mouth 4 times daily. 4 Active Procrit 48332 UNIT/ML injection 4 Active insulin glargine (Lantus SoloStar) 100 UNIT/ML penIndications:T ype 2 diabetes mellitus with stage 3b chronic kidney disease, with long-term current use of insulin (CMS/HCC) Inject 28 Units under the skin in the morning. 4 Active insulin lispro (HumaLOG KWIKPEN) 100 UNIT/ML injectionIndicat ions:Type 2 diabetes mellitus with stage 3b chronic kidney disease, with long-term current use of insulin (CMS/HCC) Inject subQ 3 times daily with meals per sliding scale: blood sugar <150 = 0 units, 151-200= 6 units, 201-250=8 units, 251-300=10 units, 301-350=12 units, >351=14 units & call office 4 Active Active Problems Problem Noted Date Diagnosed Date Chronic gastroesophageal reflux disease 07/23/19 24 Immunosuppression due to drug therapy 05/26/2023 Assessment & Plan (10/31/2023 11:26 AM EDT): Immunosuppressive rx for renal transplant. Advised to update Covid and RSV vax, she declined. Chronic kidney disease, stage 4 (severe) 023 05/01/2023 Assessment & Plan (10/31/2023 11:21 AM EDT): Sp rejection renal transplant, currently doing better on Tacrolimus, PRD, Mycophenolate Continue close fu with renal, advise to ask for maintenance PRD dose refill. FU with PCP. Advised re tight control of DM and HTN Type 2 diabetes mellitus 07/30/2022 Assessment & Plan (10/31/2023 11:24 AM EDT): Not optimally controlled, FU with PCP Adjust Lantus to 10u/d instead and monitor BS, fu with PCP to adjust dose next week, caution with hypoglycemic sxs. Continue humalog sliding scale tid AC meals only Status post partial colectomy 07/30/2022 History of malignant carcinoid tumor of colon Cholelithiasis 07/10/2022 Status post appendectomy 07/09/2022 Status post kidney transplant 03/17/2022 Overview (07/10/2022): campath induction campath induction Bilateral renal cysts 12/28/2019 Renal osteodystrophy 12/24/2019 Secondary hyperparathyroidism of renal origin Blindness, one eye, low vision other eye, unspec ified eyes 01/30/2015 Glaucoma 01/30/2015 Hypertensive heart disease 01/30/2015 Proliferative diabetic retinopathy 01/30/2015 Vitamin D deficiency 01/30/2015 Anemia 01/30/2015 Essential hypertension 05/14/2013 Overview (07/10/2022): Hypertensive disorder Assessment & Plan (07/31/2023 2:07 PM EDT): HTN Plan Hyperlipidemia 05/14/2013 Overview (07/10/2022): Elevated cholesterol Elevated cholesterol Resolved Problems Problem Noted Date Diagnosed Date Resolved Date Acute vaginitis 05/26/2023 07/23/2023 Assessment & Plan (10/31/2023 11:27 AM EDT): S/s jose vaginitis, rx fluconazole sent to pharmacy Advised re tight control of DM. 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 Hyperuricemia 07/10/2022 05/01/2023 ESRD on peritoneal dialysis 07/09/2022 07/30/2022 Neutropenia 07/05/2022 07/30/2022 Stage 3 chronic kidney disease 06/24/2022 05/01/2023 Iron deficiency anemia 10/01/201907/30 Sciatica 05/06/2018 05/01/2023 Simple renal cyst 01/30/2015 07/30/2022 Diabetes mellitus due to und erlying condition with stable proliferative diabetic retinopathy, bilateral 05/14/2013 07/30/2022 Overview (07/10/2022): diabetic retinopathy, neuropathy Type 2 diabetes mellitus Kidney problem 05/14/2013 07/30/2022 Overview (07/10/2022): Kidney problem Encounters Date Type Department Care Team Description 05/07/2024 Telephone [facility] [address] [place] [id number] Renetta Romo [place] Recall Letter (Recall Letter sent 05/07/24) 04/07/2024 Orders Only [facility] External Provider, [facility] from Last 3 Months Immunizations Name Administration Dates Next Due Hep B, adult 10/02/2021, 2,08/03/2021,07/04,05/31/2021,03/04/2017,05/09/2016 ,04/11/2016 HepB-CpG 10/01/2021, 2,07/04/2021,05/31 Influenza injectable quadriv alent IIV4 with preservative 02/12/2018,03/04/2017,04/11/2016 Influenza injectable quadriv alent preservative free 02/26/2023,01/23/2022,01/28/2020,03/09,01/30/2015 Influenza, IIV3, injectable 01/23/2022,1 ,03/09/2019,02/12,03/04/2017,04/11/2016,01/30/2015 ,03/04/2014,01/23/2011 Influenza, Split (incl. norman fied surface antigen) 01/06/2013,02/04/2012 Moderna Covid-19 Vaccine 12+ 06/22/2020,05/25/19 21 Moderna Covid-19 Vaccine 6+ Bivalent 02/01/2022 Pneumococcal Conjugate PCV 13 01/05/2020 Pneumococcal Polysaccharide PPSV23 05/03/2021, TD (adult), 2 Lf tetanus tox oid, preservative free, adsorbed 01/18/2022 Td (adult), unspecified 01/18/2022 Tdap 01/23/2011 Varicella 09/19/2021,05/28/2021 Social History Tobacco Use Types Packs/Day Years Used Date Smoking Tobacco: Never Passive Smoke Exposure: Never Smokeless Tobacco: Never Tobacco Cessation:Counseling Given: Not Answered Alcohol Use Standard Drinks/Week Comments Never 0 (1 standard drink = 0.6 oz pur e alcohol) Depression Answer Date Recorded Patient Health Questionnaire-9 Score 0 10/08/2022 Housing Stability Answer Date Recorded What is your housing situation today? I have naye garcia 05/20/[address] you li ve. Do you have problems with any of the following? None of the above 05/20/2023 Food Insecurity Answer Date Recorded Within the past 12 months, y ou worried that your food would run out before you got money to buy more: Never True 02/03/2023 Within the past 12 months,th e food you bought just didn't last and you didn't have enough money to get more: Never True Transportation Answer Date Recorded In the past 12 months, has l ack of transportation kept you from medical appts, meetings, work or from getting things needed for daily living? No 02/03/2023 Utilities Answer Date Recorded In the past 12 months, has t he electric, gas, oil or water company threatened to shut off services in your home? No 02/03/2023 Depression Answer Date Recorded Patient Health Questionnaire-2 Score 0 10/08/2022 Comments Unknown Sex and Gender Information Value Date Recorded Sex Assigned at Female 02/18/2022 10:21 AM EDT Legal Sex Female 10:21 AM EDT Gender Identity Female 02/18/2022 10:21 AM EDT Sexual Orientation Straight 02/18/2022 10 :21 AM EDT Last Filed Vital Signs Vital Sign Reading Time Taken Comments Blood Pressure 132/78 12/09/2023 2:54 PM EDT Pulse 67 12/09/2023 9:39 AM EDT Temperature 36.6 ??C (97.8 ??F) 12/09/2023 9:39 AM ED T Respiratory Rate 18 12/09/2023 9:39 AM EDT Oxygen Saturation 99% 07/23/2023 11:33 AM EDT Inhaled Oxygen Concentration - - Weight 58.1 kg (128 lb) 12/09/2023 9:39 AM EDT Height 167.6 cm (5' 6 ) 12/09/2023 9:39 AM EDT Body Mass Index 20.66 12/09/2023 9:39 AM EDT Plan of Treatment Health Maintenance Due Date Last Done Comments CT Colonography 1960 Colonoscopy 1960 Colorectal Cancer Screening 1960 FIT DNA/Cologuard 1960 FIT 1960 FOBT 1960 HIV Screening 1960 Sigmoidoscopy 1960 Diabetes: Foot Exam 1970 Eye Exam 1970 Alcohol/Substance Use Screening 1972 Hepatitis C Screening 1978 RSV Patients and Patients Aged 60 years or older (1 - Risk 60-74 years 1-dose series) 2020 Zoster Vaccines (1 of 2) 11/14/2021 Cervical Cancer Screening 08/13/2023 HPV/Cotest 08/13/2023 08/12/2018 Pap Smear 08/13/2023 08/12/2018 Depression Screening 10/09/2023 10/08/2022, 10/09/19 COVID-19 Vaccine ( season) 2023 02/01/2022, 06/22/2020, 05/25/2020 Diabetes: Hemoglobin A1C 06/10/2024 024, 07/23/2023, 05/01/2023, Additional history exists SDOH Screening 07/14/2024 07/15/2023 Lipid Panel 10/05/2024 10/06/2023 Tobacco Screening 12/08/2024 12/09/2023 Mammogram 07/16/2025 07/17/2023, 06/20, 07/11/2022, Additional history exists Pneumococcal Vaccine: 50+ Years (4 of 4 - PCV20 or PCV21) 05/03/2026 05/03/2021, 01/05/2020, 08/13/2010 Pneumococcal Vaccine: Pediatrics (0 to 5 Years) and At-Risk Patients (6 to 49) Years) (4 of 4 - PPSV23 or PCV20) 05/03/2026 05/03/2021, 01/05/2020, 08/13/2010 DTaP/Tdap/Td Vaccines (4 - Td or Tdap) 01/19/2032 01/18/2022, 01/18/2022, 01/23/2011 Hepatitis B Vaccines Completed 10/02/2021, 10/01/2021, 10/01/2021, Additional history exists Influenza Vaccine Completed 02/12/2024, , 01/23/2022, Additional history exists HIB Vaccines Aged Out [...] patient's age to complete this topic Meningococcal Vaccine Aged Out No darron randell eligible based on patient's age to complete this topic RSV under 20 months Aged Out No longe r eligible based on patient's age to complete this topic Rotavirus Vaccines Aged Out No longer eligible based on patient's age to complete this topic Goals Goal Patient Goal Type Associated Problems Recent Progress Patient-Stated? Author Hemoglobin A1c < 7 Result Component 5.9( 4 9:43 AM EDT) No Puia, Carmen, PharmD Record your blood sugar as directed Result Component No Puia, Carmen, PharmD Note: Use CGM, ensuring sensor is scanned at least once every 8 hours to capture 24H data. Check BG manually, as directed. Procedures Procedure Name Priority Date/Time Associated Diagnosis Comments XR CHEST 1 VIEW Routine 04/12/2024 10:40 AM EST XR CHEST 1 VIEW Routine 04/09/2024 6:00 AM EST US DRAIN THORACENTESIS Routine 4 11:30 AM EST POCT GLYCATED HEMOGLOBIN, TOTAL Routine 12/09/2023 9:43 AM EDT Type 2 diabetes mellitus with stage 3b chronic kidney disease, without long-term current use of insulin ([facility]) LIPID PANEL, STANDARD Routine 10/06/2023 BI MAMMOGRAM SCREENING TOMOSYNTHESIS BILATERAL Routine 07/17/2023 10:45 AM EDT HM PAP/HPV Routine 08/12/2018 from Last 3 Months or Most Recently Relevant to Health Maintenance Results * XR Chest 1 View (04/12/2024 10:40 AM EST) Only the most recent of2 resultswithin the time period is included. Anatomical Region Laterality Modality Chest Radiographic Lily ging 04/12/2024 10:4 0 AM EST Narrative 04/12/2024 7:45 PM EST ? [facility] ?[address] ?[place] [address] ?XRay Report ? Signed ? Patient: West,Alix B ?MR#: [id number] ?? 43 ? : 1960 ?Acct:[id number] ? Age/Sex: 63 / F ?ADM Date: 04/07/24 ? Loc: HO.S3 ?385-1 ? Attending Dr: Ernie Brewer MD ? Ordering Physician: Lilian Gibbons PA-C ?? Date of Service: 04/12/24 ?? Procedure(s): XR chest 1V ?? Accession Number(s): [id number] ? cc: Marita Wetzel DO; Lilian Gibbons PA-C ? EXAMINATION: ?? XR CHEST ? CLINICAL INFORMATION: ?? f/u chest tube removal ? COMPARISON: ?? Chest radiograph 04/09/2024 ? TECHNIQUE: ?? AP view of the chest was obtained. ? FINDINGS: ?? Interval removal of right basilar pigtail catheter. No pneumothorax. ?? Right chest port catheter with tip overlying the cavoatrial junction, ?? as before. ? The lungs are adequately expanded. Right midlung patchy opacities, as ?? before. Small right pleural effusion. No overt pulmonary edema. The ?? enlarged cardiomediastinal silhouette is within normal limits for ?? technique and unchanged. Aortic arch calcifications again seen. No ?? acute osseous abnormality. ? XR/XR chest 1V ?? IMPRESSION: ?? 1. ??Interval removal of right basilar pigtail catheter. No ?? pneumothorax. Small residual right pleural effusion. ?? 2. ??Right midlung patchy opacities, as before. ? Electronically signed by: ??Dulce Corcoran DO ??04/12/2024 07:42 PM EST ?? RP ? Dictated By: ?Dulce Corcoran ? Signed By: ?<Electronically signed by Dulce Corcoran in OV> ? 04/12/24 1942 ? DD/ 1040 ? TD/TT: 04/12/24 1046 ? Assembler Fitter: ? Procedure Note Donotuseinterpreter, Image - 04/12/[address] [address] XRay Report Signed Patient: Alix Sharp BMR#: [id number] 43 : 1960cct:[id number] Age/Sex: 63 / FADM Date: 04/07/24 Loc: HO.S3 385-[address]: Ernie Brewer MD Ordering Physician: Lilian Gibbons PA-C Date of Service: 04/12/24 Procedure(s): XR chest 1V Accession Number(s): [id number] cc: Marita Wetzel DO; Lilian Gibbons PA-C EXAMINATION: XR CHEST CLINICAL INFORMATION: f/u chest tube removal COMPARISON: Chest radiograph 04/09/2024 TECHNIQUE: AP view of the chest was obtained. FINDINGS: Interval removal of right basilar pigtail catheter. No pneumothorax. Right chest port catheter with tip overlying the cavoatrial junction, as before. The lungs are adequately expanded. Right midlung patchy opacities, as before. Small right pleural effusion. No overt pulmonary edema. The enlarged cardiomediastinal silhouette is within normal limits for technique and unchanged. Aortic arch calcifications again seen. No acute osseous abnormality. XR/XR chest 1V IMPRESSION: 1. Interval removal of right basilar pigtail catheter. No pneumothorax. Small residual right pleural effusion. 2. Right midlung patchy opacities, as before. Electronically signed by: Dulce Corcoran DO 04/12/2024 07:42 PM EST Dictated By: Dulce Corcoran Signed By: <Electronically signed by Dulce Corcoran in OV> 04/12/241941 DD/ 1040 TD/TT: 04/12/24 1046 Assembler Fitter: us [facility] External Provider IMG XR PROCEDURES Final Result * US DRAIN THORACENTESIS (04/08/2024 11:30 AM EST) Anatomical Region Laterality Modality Abdomen Ultrasound 04/08/2024 11:3 0 AM EST Narrative 04/12/2024 5:27 PM EST ? [facility] ?[address] ?[place] [address] ? Ultrasound Report ? Signed ? Patient: West,Alix B ?MR#: [id number] ?? 43 ? : 1960 ?Acct:[id number] ? Age/Sex: 63 / F ?ADM Date: 04/07/24 ? Loc: HO.S3 ?385-1 ? Attending Dr: Ernie Brewer MD ? Ordering Physician: Jerod Lopez ?? Date of Service: 04/08/24 ?? Procedure(s): US drain thoracentesis ?? Accession Number(s): [id number] ? cc: Marita Wetzel DO; Jerod Lopez ? PROCEDURE: ?? Ultrasound-guided chest tube placement ? HISTORY: ?? Right loculated pleural effusion ? SPECIMEN: ?? A specimen was appropriately labeled and sent to the laboratory as ?? requested ? ACCESS: ?? 5 fr Yueh needle/catheter ? MEDICATIONS: ?? 10 mL 1% lidocaine ? TECHNIQUE/FINDINGS ?? Appropriate preprocedural clinical history and imaging studies were ?? reviewed. The patient was brought to the department and placed in the ?? left lateral decubitus position. ? Ultrasound images of the right thorax were obtained to localize a large ?? loculated pleural effusion. Permanent ultrasound images were saved. ? The risks and benefits and possible complications were discussed with ?? the patient and consent form was signed. An area of the patient's right ?? back was prepped and draped in the usual sterile fashion. 10 mL of 1% ?? lidocaine was used to obtain local anesthesia of the skin and deeper ?? tissues. A 25 gauge hypodermic needle was introduced to sample pleural ?? fluid and demonstrate a safe access route. A 5 [place] Yueh catheter was ?? then used to access the pleural cavity. A 0.035 guidewire was then ?? placed through the catheter and into the pleural space. The access site ?? was then dilated. A 12 fr locking catheter was then advanced over the ?? wire and into the right pleural space. The wire was removed and the ?? catheter was secured to the skin with a single suture and a sterile ?? dressing was applied over the site. The catheter was then connected to ?? a close chest drainage system. ? The patient tolerated the procedure well. There were no immediate ?? complications ? US/US drain thoracentesis ?? Impression: Ultrasound-guided right chest tube placement yielding ?? yellow fluid. ? This procedures performed by Jerod Lopez PA-C and supervised by ?? Peter. ? Electronically signed by: ??Nelson Green MD ??04/12/2024 05:24 PM EST RP ? Dictated By: ?Jerod Lopez ? Signed By: ?<Electronically signed by Jerod Lopez in OV> ? 04/12/24 1724 ?<Electronically signed by Nelson Green MD in OV> ? 04/12/24 1726 ? DD/ 1130 ? TD/TT: 04/08/24 1220 ? Assembler Fitter: ? Procedure Note Juanita, Image - 04/12/2024 [place] [address] Ultrasound Report Signed Patient: Alix Sharp BMR#: [id number] 43 : 1960cct:[id number] Age/Sex: 63 / FADM Date: 04/07/24 Loc: .S3 385-[address]: Ernie Brewer MD Ordering Physician: Jerod Lopez Date of Service: 04/08/24 Procedure(s): US drain thoracentesis Accession Number(s): [id number] cc: Marita Wetzel DO; Jerod Lopez PROCEDURE: Ultrasound-guided chest tube placement HISTORY: Right loculated pleural effusion SPECIMEN: A specimen was appropriately labeled and sent to the laboratory as requested ACCESS: 5 fr Yueh needle/catheter MEDICATIONS: 10 mL 1% lidocaine TECHNIQUE/FINDINGS Appropriate preprocedural clinical history and imaging studies were reviewed. The patient was brought to the department and placed in the left lateral decubitus position. Ultrasound images of the right thorax were obtained to localize a large loculated pleural effusion. Permanent ultrasound images were saved. The risks and benefits and possible complications were discussed with the patient and consent form was signed. An area of the patient's right back was prepped and draped in the usual sterile fashion. 10 mL of 1% lidocaine was used to obtain local anesthesia of the skin and deeper tissues. A 25 gauge hypodermic needle was introduced to sample pleural fluid and demonstrate a safe access route. A 5 Occ[place] Yueh catheter was then used to access the pleural cavity. A 0.035 guidewire was then placed through the catheter and into the pleural space. The access site was then dilated. A 12 fr locking catheter was then advanced over the wire and into the right pleural space. The wire was removed and the catheter was secured to the skin with a single suture and a sterile dressing was applied over the site. The catheter was then connected to a close chest drainage system. The patient tolerated the procedure well. There were no immediate complications US/US drain thoracentesis Impression: Ultrasound-guided right chest tube placement yielding yellow fluid. This procedures performed by Jerod Lopez PA-C and supervised by Dr. Green. Electronically signed by: Nelson Green MD 04/12/2024 05:24 PM [facility] Dictated By: Jerod Lopez Signed By: <Electronically signed by Jerod Lopez in OV> 04/12/24 1724 <Electronically signed by Nelson Green MD in OV> 04/12/24 1726 DD/ 1130 TD/TT: 04/08/24 1220 Assembler Fitter: [facility] External Provider IMG US PROCEDURES Final Result * POCT HGB A1C (12/09/2023 9:43 AM EDT) Pathologist [facility] Hemoglobin A1C 5.9 4.0 - 6.0 % QC Media Lot # [id number] Lot# Expiration Date [id number] Blood 12/09/2023 9:43 AM EDT Result [facility] Marita Wetzel DO POINT OF CARE TEST ENTER/HUMBERTO T ORDERABLES Final Result * (ABNORMAL) Lipid Panel, Standard (10/06/2023) Pathologist [facility] Triglycerides 157 40 - 160 mg/dL Cholesterol 115 0 - 200 mg/dL HDL Cholesterol 31(A) 35 - 70 mg/dL LDL Cholesterol 57 mg/dL Blood Venous blood specimen / Unknown us Historical Provider MD LAB BLOOD ORDERABLES Carly l Result * BI Mammogram Screening Tomosynthesis Bilateral (07/17/2023 10:45 AM EDT) Anatomical Region Laterality Modality Breast Bilateral Mammography 07/17/2023 10:4 5 AM EDT Narrative 08/03/2023 8:29 PM EDT ? [facility] [place] ? [address] ?[place] [address] ? Mammography Report ? Signed ? Patient: Aron BatistaAlix Doug ?MR#: ?? [id number] ? : 1960 ?Acct:[id number] ? Age/Sex: 63 / F ?ADM Date: 07/17/23 ? Loc: HO.MAMMO ? Attending Dr: Marita Wetzel DO ? Ordering Physician: Marita Wetzel DO ?Results: 2B ?? enign Findings ? Date of Service: 07/17/23 ?Follow Up: 1 Year From Orig ?? inal Mammogram ? Procedure(s): MM tomosynthesis screening BI ?? Accession Number(s): [id number] ? cc: Marita Wetzel Scottie DO ? EXAMINATION: ?? MM SCREENING DIGITAL BREAST TOMOSYNTHESIS, BILATERAL ? CLINICAL INFORMATION: ? Screening. Asymptomatic. ? COMPARISON: ?? Mammography: This study is compared with prior exams dating back to ? TECHNIQUE: ?? Digital breast tomosynthesis is performed in both the craniocaudal and ?? mediolateral oblique views along with computer-aided detection (CAD). ?? Synthesized 2D images are generated from the tomosynthesis. ? FINDINGS: ?? The breasts are heterogeneously dense, which may obscure small masses ?? (ACR BI-RADS breast composition Category c). ? There are no significant masses, abnormal calcifications, or other ?? abnormalities. ? There are bilateral, coarse benign calcifications. ? MM/MM tomosynthesis screening BI ?? IMPRESSION: ?? No mammographic evidence of malignancy. ? ASSESSMENT: ? BI-RADS BI-RADS 2 - Benign Findings ? RECOMMENDATION: ?? Routine annual mammography screening. ? 1 year F/U ? This examination should not preclude the clinical evaluation of a ?? suspicious palpable abnormality. ? This patient's information was entered into a reminder system with a ?? target due date for their next mammogram. ? Dictated By: ?Mai Gaffney MD ? Signed By: ?<Electronically signed by Mai Gaffney MD in OV> ? 08/03/232024 ? DD/ 44 ? TD/TT: ? Assembler Fitter: ? Procedure Note Delvis Grant - 08/03/2023 [facility] [address] [place] [address] Dr. Ravi, [place]ST [address] Mammography Report Signed Patient: Alix Dennis FMR#: [id number] : 1960cct:[id number] Age/Sex: 63 / FADM Date: 07/17/23 Loc: HO.MAMMO Attending Dr: Marita Wetzel DO Ordering Physician: Marita Wetzelults: 2B enign Findings Date of Service: 07/17/23Follow Up: 1 Year From Orig inal Mammogram Procedure(s): MM tomosynthesis screening BI Accession Number(s): [id number] cc: Marita Wetzel DO EXAMINATION: MM SCREENING DIGITAL BREAST TOMOSYNTHESIS, BILATERAL CLINICAL INFORMATION: Screening. Asymptomatic. COMPARISON: Mammography: This study is compared with prior exams dating back to TECHNIQUE: Digital breast tomosynthesis is performed in both the craniocaudal and mediolateral oblique views along with computer-aided detection (CAD). Synthesized 2D images are generated from the tomosynthesis. FINDINGS: The breasts are heterogeneously dense, which may obscure small masses (ACR BI-RADS breast composition Category c). There are no significant masses, abnormal calcifications, or other abnormalities. There are bilateral, coarse benign calcifications. MM/MM tomosynthesis screening BI IMPRESSION: No mammographic evidence of malignancy. ASSESSMENT: BI-RADS BI-RADS 2 - Benign Findings RECOMMENDATION: Routine annual mammography screening. 1 year F/U This examination should not preclude the clinical evaluation of a suspicious palpable abnormality. This patient's information was entered into a reminder system with a target due date for their next mammogram. Dictated By: Mai Gaffney MD Signed By: <Electronically signed by Mai Gaffney MD in OV> 08/03/232024 DD/ 1045 TD/TT: Assembler Fitter: Marita Wetzel DO IMG BI PROCEDURES Edited Res ult - Final * Hm Pap Smear (08/12/2018) Pap Negative for intraephithelial lesion or malignancy Negative for intraephithelial lesion or malignancy, Other HPV Undetected Undetected, Indeterminate, Quantitative, Not Detected Historical Provider HEALTH MAINTENANCE Final Result from Last 3 Months or Most Recently Relevant to Health Maintenance Insurance MEDICARE FOR LIFE Care Teams Personal Chef Relationship Specialty Start Date End Date Marita Wetzel DO [address] [place] [id number] PCP - General Family Medicine 04/21/18
--- OUTSIDE RECORDS SUMMARY | 2024-05-27 20:22 | XMS_ITS | Encounter Summary ---
Author Organization [facility], Address [address] [place] [address] Phone Care Team Providers Care Granulating Blender Name Role Phone Marita Wetzel DO Primary Care Provider Unava ilable Encounter Details Date Type Department Care Team (Late st Contact Info) Description 05/03/2024 Treatment [facility], [address] [place] [address] Loan Adam PA Social History Tobacco Use Types [...] encounter Miscellaneous Notes * Dialysis Note - Loan Adam PA - 05/03/2024 12:00 AM EST Patient: Alix Sharp : 1960 Note Type: Dialysis Rounds-Basic Service Date: 05/03/2024 This patient was personally seen for a basic visit as part of routine monthly dialysis care for end stage renal disease. Attending Scrub Wheel Operator: JEANNE BAILEY Dialysis Location: [facility] Schedule: Shift: 2 OVERVIEW COMMENTS: New start with post renal allograft [...] now. Run even or positive. HOME MEDICATIONS Medications reviewed. Current [facility] Outpatient Medications clonidine 0.2 mg/24 hr patch [...] by mouth twice a day as directed. lisinopril 40 mg tablet Take 1 tablet [...] mouth every four weeks. [take monthly] Current [facility] Allergies Allergen: codeine Reaction: Unknown Allergen: oxycodone Reaction: Unknown DIALYSIS PRESCRIPTION Treatment Data Treatment Date: 05/03/2024 started at: 2:30 PM Dialysate / Machine Temp (prescribed): 36.0*C Dialysate / Machine Temp (actual): 36.0*C BFR (prescribed): 450 BFR (actual): 350 DFR (prescribed): Manual 500 DFR (actual): 500 Prescribed Time: 03:15 EDW (kg): 45.5 Dialyzer: 160NRe Optiflux Dialysate: 3.0 K, 2.50 Ca, 1.0 Mg, 100 Dextrose ([id number]) Sodium: 137 Bicarb: 35 Pre Dialysis Vitals Pre BP Sit: 132/65 Pre Wt (kg): 46.9 EDW Deviation (kg): 1.4 Temp: 97.6*F Current Dialysis Vitals BP Sit: 102/72 AP/SELF PAY REPRESENTATIVE: 236/155 Pulse: 65 BP AND FLUID ASSESSMENT Acceptable blood pressure. Fluid status acceptable. Post BP Sit 122/58 - 04/30/2024 176/77 - 04/28/2024 139/73 - 04/26/2024 Post Wt (kg) 46.7 - 04/30/2024 45.7 - 04/28/2024 46.0 - 04/26/2024 EDW (kg) 45.5 - 04/30/2024 45.5 - 04/28/2024 74.0 - 04/26/2024 Deviation (kg) 1.2 - 04/30/2024 0.2 - 04/28/2024 -28.0 - 04/26/2024 ADEQUACY ASSESSMENT Target met. Prescription compliance acceptable. Missed Treatments 0 - Last 30 days 0 - Last 60 days spKt/V (Daugirdas II) 1.04 (04/23/24) % Urea Reduction 59 (04/23/24) BUN 44 (04/23/24) 38 (04/20/24) 33 (02/10/24) BUN Post Dialysis 18 (04/23/24) Creatinine 3.62 (04/23/24) 3.26 (04/20/24) 3.61 (02/10/24) Bicarbonate (CO2) 21 (04/23/24) 17 (04/20/24) 15 (02/10/24) Sodium 142 (04/23/24) 143 (04/20/24) 137 (02/10/24) ACCESS ASSESSMENT AVGraft Synthetic - Standard (PTFE) Left Upper Arm Active (In Use) - 04/23/2024 Placed - 01/22/2024 ANEMIA ASSESSMENT Hemoglobin 8.4 (04/28/24) 8.0 (04/23/24) 7.9 (04/20/24) Hgb 6.5 (07/03/23) 7.9 (06/14/23) 7.9 (06/14/23) [...] 1.4 10/06/23 Alkaline Phosphatase 54 04/23/24 Aluminum 97 04/23/24 NUTRITION ASSESSMENT Albumin 2.7 04/23/24 2.9 04/20/24 3.1 02/10/24 Potassium 3.9 04/23/24 3.8 04/20/24 4.2 02/10/24 Hemoglobin A1C 5.8 04/23/24 6.1 04/20/24 5.8 [...] reviewed. Dietary adjustments made in conjunction with mold cutting machine operator. Transplant: The patient will be re-evaluated for a kidney transplant. Signed by: LOAN ADAM PA on 05/03/2024 at 04:32:47 PM Transcribed by: LOAN ADAM PA on 05/03/2024 at 04:32:47 PM documented in this encounter Plan of Treatment Upcoming Encounters Date Type Department Care Team (Late st Contact Info) Description 06/10/2024 11:45 PM EST Clinical Support [facility] Vascular Access [address] [place] [address] 06/29/2024 7:30 AM EDT Scheduled Only [facility] Vascular Access [address] [place] [address] documented as of this encounter Visit Diagnoses Not on filedocumented in this encounter Care Teams Granulating Blender Relationship Specialty Start Date End Date Marita Wetzel DO [address] [place] [address] PCP - General Family Medicine 11/14/22 documented as of this encounter
--- OUTSIDE RECORDS SUMMARY | 2024-05-27 20:22 | XMS_ITS | Encounter Summary ---
Author Organization [employer] Address [address] [place] [address] 7 [place] [address] Care Team Providers Care Parks Recreation Coordinator Name Role Phone Damari Marita Primary Care Provider + [phone] Reason for Visit * Reason Onset Date Comments Recall Letter 05/07/2024 Recall Letter se nt 05/07/24 Encounter Details Date Type Department Care Team (Late st Contact Info) Description 05/07/2024 Telephone [facility] MEDICINE [address] [place] [address] Renetta Romo MA Recall Letter (Recall Letter sent 05/07/24) Social History Tobacco Use Types Packs/Day Years Used Date Smoking Tobacco: Never Passive Smoke Exposure: Never Smokeless Tobacco: Never Alcohol Use Standard [...] Orientation Straight 02/18/2022 10 :21 AM EDT documented as of this encounter Miscellaneous Notes * Telephone Encounter - Renetta Romo MA - 05/07/2024 1:24 PM EST Left message to patient vm to call office to schedule OV. Recall Letter sent 05/07/24. documented in this encounter Plan of Treatment Not on file documented as of this encounter Goals Goal Patient Goal Type Associated Problems Recent Progress Patient-Stated? Author Hemoglobin A1c < 7 Result Component 5.9( 4 9:43 AM EDT) No Carmen Becker, PharmD Record your blood sugar as directed Result Component No Carmen Becker, PharmD Note: Use CGM, ensuring sensor is scanned at least once every 8 hours to capture 24H data. Check BG manually, as directed. documented as of this encounter Visit Diagnoses Not on filedocumented in this encounter Additional Health Concerns Assessment Noted Time PHQ-9 Depression Total Score: 0 10/09/19 23 9:31 AM EDT documented as of this encounter Care Teams Parks Recreation Coordinator Relationship Specialty Start Date End Date Marita Wetzel DO [address] [place] [address] PCP - General Family Medicine 04/21/18 documented as of this encounter
--- OUTSIDE RECORDS SUMMARY | 2024-05-27 20:22 | XMS_ITS | Encounter Summary ---
Author Organization [facility], Address [address] [place] [address] Phone Care Team Providers Care Advertising Operations Manager Name Role Phone Marita Wetzel DO Primary Care Provider Unava ilable Encounter Details Date Type Department Care Team (Late st Contact Info) Description 05/24/2024 Treatment [facility], [address] [place] [phone] Jeanne Bailey MD [facility] [address] [place] [address] Social History Tobacco Use Types Packs/Day Years [...] Dialysis Note - Jeanne Bailey MD - 05/24/2024 12:00 AM EST Patient: Alix Sharp : 1960 [facility] [place] Note Type: Dialysis Rounds-Comp Service Date: 05/24/2024 This patient was personally seen for a complete visit as part of routine monthly dialysis care for end stage renal disease. Attending Rn Clinical Trials: JEANNE BAILEY Dialysis Location: [facility] Schedule: Shift: 3 OVERVIEW COMMENTS: New start with post renal [...] Run even or positive. HOME MEDICATIONS [facility] Medications amlodipine 10 mg tablet Take 1 tablet by mouth once a day. carvedilol 25 mg tablet Take 1 tablet by mouth twice a day. Humalog KwikPen Insulin 100 unit/mL insulin pen Inject subcutaneously three times a day. [before meal SS: less than 60 call physician, 150 - 200 give 2 units, 201-250 4units, 251-300 6units, 301 - 350 8units 351 - 400 10units, greater than 400 go to ER (Diagnosis code E11.22)] hydralazine 50 mg tablet Take 1 tablet by mouth twice a day as directed. hydromorphone 4 mg tablet Take 1 tablet by mouth every four hours as needed for pain. isosorbide mononitrate 30 mg tablet extended release 24 hr 1 tablet once a day. Nephro-Rhina 0.8 mg tablet Take 1 tablet by mouth once a day. pantoprazole 40 mg tablet,delayed release (DR/EC) Take 1 tablet by mouth once a day. prednisolone 5 mg tablet Take 1 1/2 tablet by mouth once a day. sertraline 25 mg tablet Take 1 tablet by mouth once a day. sodium bicarbonate 650 mg tablet Take 1 tablet by mouth twice a day. sucralfate 1 gram tablet Take 1 tablet by mouth three times a day. [Take with meals] tacrolimus 5 mg capsule Take 2 capsule by mouth once a day. Current [facility] Allergies Allergen: codeine Reaction: Unknown Allergen: oxycodone Reaction: Unknown DIALYSIS PRESCRIPTION Treatment Data Treatment Date: 05/24/2024 started at: 2:31 PM Dialysate / Machine Temp (prescribed): 36.0*C Dialysate / Machine Temp (actual): 36.0*C BFR (prescribed): 450 BFR (actual): 350 DFR (prescribed): Manual 500 DFR (actual): 500 Prescribed Time: 03:15 EDW (kg): 45.5 Dialyzer: 160NRe Optiflux Dialysate: 2.0 K, 2.50 Ca, 1.0 Mg, 100 Dextrose ([id number]) Sodium: 137 Bicarb: 35 Pre Dialysis Vitals Pre BP Sit: 124/59 Pre Wt (kg): 46.4 EDW Deviation (kg): 0.9 Temp: 98.0*F Current Dialysis Vitals BP Sit: 105/63 AP/BUSINESS RULES ANALYST: 26/42 Pulse: 70 TREATMENT MEDICATIONS ORDERS Mircera 150 mcg IVP Every 2 weeks During Dialysis 05/12/2024 - 05/11/2025 BP AND FLUID ASSESSMENT Post BP Sit 107/53 - 05/10/2024 121/58 - 05/07/2024 124/68 - 2024 Post Wt (kg) 47.4 - 05/10/2024 47.0 - 05/07/2024 46.0 - 2024 EDW (kg) 45.5 - 05/10/2024 45.5 - 05/07/2024 45.5 - 2024 Deviation (kg) 1.9 - 05/10/2024 1.5 - 05/07/2024 0.5 - 2024 ADEQUACY ASSESSMENT Missed Treatments 5 - Last 30 days 5 - Last 60 days Most recently missed on 05/21/2024 spKt/V (Daugirdas II) 1.39 (05/10/24) 1.04 (04/23/24) eKdrt/V 1.12 (05/10/24) % Urea Reduction 69 (05/10/24) 59 (04/23/24) BUN 49 (05/10/24) 44 (04/23/24) 38 (04/20/24) BUN Post Dialysis 15 (05/10/24) 18 (04/23/24) Creatinine 3.62 (04/23/24) 3.26 (04/20/24) [...] Potassium 5.0 05/05/24 4.9 04/30/24 3.9 04/23/24 eNPCR 0.67 05/10/24 Hemoglobin A1C 5.8 04/23/24 6.1 04/20/24 5.8 02/03/24 ADDITIONAL LABS COMMENTS: 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 INR 1.0 (10/06/23) 1.0 (08/05/23) WBC 9.46 (04/23/24) 11.3 (04/20/24) 9.4 (02/10/24) White Blood Cells 13.6 (07/03/23) 4.4 (06/14/23) 4.4 (06/14/23) Cholesterol 115 (10/06/23) HDL 31 (10/06/23) LDL Calculated 57 (10/06/23) Triglycerides 157 (10/06/23) Hepatitis B Surface Ab 632 (04/23/24) 1,682.0 (04/20/24) 1,959.0 (02/10/24) ADDITIONAL COMMENT COMMENTS: 05/24/24 Patient is stable Medications reviewed Physical Exam Vital signs: reviewed Edema: none Impression 1.Adequacy: KT/V was assessed and the dialysis prescription was adjusted as needed. 2.Access: Dialysis access function is acceptable. 3.Hypertension: Blood pressure control and volume status are at goal. 4.Anemia: Labs reviewed and adjustments to regimen made according to anemia management protocol. 5.Mineral Bone Disease: Labs reviewed. Diet and medication adjustment as per protocol. 6.Nutrition: Labs reviewed. Dietary adjustments made in conjunction with administration clerk. 7.Transplant: Not a candidate. decreasing tacrolimus doing as per protocol. 04/26/24 Patient is stable Medications reviewed Physical [...] reviewed. Dietary adjustments made in conjunction with administration clerk. Transplant: The patient will be re-evaluated for a kidney transplant. Signed by: JEANNE BAILEY MD on 05/24/2024 at 05:41:26 PM Transcribed by: JEANNE BAILEY MD on 05/24/2024 at 05:41:26 PM documented in this encounter Plan of Treatment Upcoming Encounters Date Type Department Care Team (Late st Contact Info) Description 06/10/2024 11:45 PM EST Clinical Support [facility] [address] [place] [address] [place] [address] 06/29/2024 7:30 AM EDT Scheduled Only [facility] Center [address] [place] [address] [place] [address] documented as of this encounter Visit Diagnoses Not on filedocumented in this encounter Care Teams Advertising Operations Manager Relationship Specialty Start Date End Date Marita Wetzel DO [address] [place] [address] PCP - General Family Medicine 11/14/22 documented as of this encounter
--- OUTSIDE RECORDS SUMMARY | 2024-05-27 20:22 | XMS_ITS | Encounter Summary ---
Author Organization [facility] Address [address] [place] [address] Care Team Providers Care Ext Js Developer Name Role Phone Marita Wetzel Primary Care Provider [phone]- [phone] Encounter Details Date Type Department Care Team (Late st Contact Info) Description 03/12/2024 Lab Requisition [facility] - Main Lab [address] [facility] [place] [address] Catalina Burr MD [address] [place] [address] Chronic embolism and thrombosis of unspecified vein; [...] Date/Time Associated Diagnosis Comments TACROLIMUS LEVEL Routine 03/15/2024 8:20 AM EST Chronic embolism and thrombosis of unspecified vein Acute kidney failure, unspecified (CMS/HCC) Type 2 diabetes mellitus without complications (CMS/HCC) RENAL FUNCTION PANEL Routine 03/15/2024 8:20 AM EST Chronic embolism and thrombosis of unspecified vein Acute kidney failure, unspecified (CMS/HCC) Type 2 diabetes mellitus without complications (CMS/HCC) documented in this encounter Results * (ABNORMAL) Tacrolimus level (03/15/2024 8:20 AM EST) Tacrolimus Level 2.3(L) 5.0 - 20.0 ng/mL 03/17/2024 1:34 PM EST [facility] Comment: Additional Information: Toxic Level ?> [...] developed and the performance characteristics determined by [facility]. This confirmation testing has not been cleared or approved by the FDA. The laboratory is regulated under CLIA as qualified to perform high-complexity testing. This test is used for patient testing purposes. It should not be regarded as investigational or for research. Test performed at [facility], [address] [place], [place] ??[address] ? [phone] Ashtyn Leigh MD, PhD - Nurse Epidemiologist Blood Venous blood specimen / Unknown Venipuncture / Unknown 03/15/2024 8:20 AM EST 03/15/2024 10:20 AM EST Catalina Burr MD LAB BLOOD ORDERABLES [place] [place] [address] * (ABNORMAL) Renal function panel (03/15/2024 8:20 AM EST) Sodium 139 133 - 145 mmol/L LAB CHEMISTRY METHOD 03/15/2024 11:31 AM [facility] Potassium 5.6(H) 3.5 - 5.5 mmol/L LAB CHEMISTRY METHOD 03/15/2024 11:31 AM [facility] Chloride 108 96 - 110 mmol/L LAB CHEMISTRY METHOD 03/15/2024 11:31 AM [facility] CO2 19(L) 21 - 32 mmol/L LAB CHEMISTRY METHOD 03/15/2024 11:31 AM [facility] Anion Gap 12(H) 3 - 11 LAB CHEMISTRY METHOD 03/15/2024 11:31 AM [facility] Glucose 105(H) 70 - 100 mg/dL LAB CHEMISTRY METHOD 03/15/2024 11:31 AM [facility] BUN 36(H) 5 - 25 mg/dL LAB CHEMISTRY METHOD 03/15/2024 11:31 AM [facility] Creatinine 3.97(H) 0.50 - 1.10 mg/dL LAB CHEMISTRY METHOD 03/15/2024 11:31 AM [facility] eGFR 12(L) >=60 mL/min/1. 73m2 LAB CHEMISTRY METHOD 03/15/2024 11:31 AM [facility] Comment:Calculation based on the??Chronic Kidney Disease Epidemiology Collaboration (CKD-EPI) equation refit??without adjustment for race. BUN/Creatinine Ratio 9.1 LAB CHEMISTRY METHOD 03/15/2024 11:31 AM [facility] Albumin 2.6(L) 3.2 - 5.0 g/dL LAB CHEMISTRY METHOD 03/15/2024 11:31 AM EST [facility] Calcium 9.5 8.5 - 10.5 mg/dL LAB CHEMISTRY METHOD 03/15/2024 11:31 AM EST [facility] Phosphorus 4.0 2.5 - 4.5 mg/dL LAB CHEMISTRY METHOD 03/15/2024 11:31 AM EST [facility] Blood Venous blood specimen / Unknown Venipuncture / Unknown 03/15/2024 8:20 AM EST 03/15/2024 10:16 AM EST Catalina Burr MD LAB BLOOD ORDERABLES [facility] [address] [place] [address], documented in this encounter Visit Diagnoses Diagnosis Chronic embolism and thrombosis of unspecified vein Acute kidney failure, unspecified (CMS/HCC) Acute kidney failure, unspecified Type 2 diabetes mellitus without complications (CMS/HCC) documented in this encounter Care Teams Ext Js Developer Relationship Specialty Start Date End Date Marita Wetzel DO [address] [place] [address] PCP - General 01/09/23 documented as of this encounter
--- OUTSIDE RECORDS SUMMARY | 2024-05-27 20:22 | XMS_ITS | Encounter Summary ---
Author Organization [facility] Address [address] [place] [address] Care Team Providers Care Disability Aide Name Role Phone Mary JaneMarita yousif Primary Care Provider [phone]- [phone] Encounter Details Date Type Department Care Team (Late st Contact Info) Description 03/29/[address] [facility] - Main Lab [address] [facility] [place] [address] Catalina Burr MD [address] [place] [address] End stage renal disease (CMS/HCC) Social History Tobacco Use Types Packs/Day [...] Date/Time Associated Diagnosis Comments TACROLIMUS LEVEL Routine 03/29/2024 6:53 AM EST End stage renal disease (CMS/HCC) COMPLETE BLOOD COUNT Routine 03/29/2024 6:53 AM EST End stage renal disease (CMS/HCC) RENAL FUNCTION PANEL Routine 03/29/2024 6:53 AM EST End stage renal disease (CMS/HCC) documented in this encounter Results * Tacrolimus level (03/29/2024 6:53 AM EST) Tacrolimus Level 6.8 5.0 - 20.0 ng/mL 03/31/2024 12:22 PM EST [facility] Comment: Additional Information: [...] performed at [facility], [address] [place], [place] ??[address] ? [phone] Ashtyn Leigh MD, PhD - Behavioral Health Case Manager Blood Venous blood specimen / Unknown Venipuncture / Unknown 03/29/2024 6:53 AM EST 03/29/2024 8:32 AM EST Catalina Burr MD LAB BLOOD ORDERABLES Performing Organization Address City/State/[facility] Phone Number [facility] [address] [place] [address] * (ABNORMAL) Renal function panel (03/29/2024 6:53 AM EST) Sodium 140 133 - 145 mmol/L LAB CHEMISTRY METHOD 03/29/2024 10:07 AM [facility] Potassium 3.9 3.5 - 5.5 mmol/L LAB CHEMISTRY METHOD 03/29/2024 10:07 AM [facility] Chloride 109 96 - 110 mmol/L LAB CHEMISTRY METHOD 03/29/2024 10:07 AM [facility] CO2 20(L) 21 - 32 mmol/L LAB CHEMISTRY METHOD 03/29/2024 10:07 AM [facility] Anion Gap 11 3 - 11 LAB CHEMISTRY METHOD 03/29/2024 10:07 AM [facility] Glucose 146(H) 70 - 100 mg/dL LAB CHEMISTRY METHOD 03/29/2024 10:07 AM [facility] BUN 42(H) 5 - 25 mg/dL LAB CHEMISTRY METHOD 03/29/2024 10:07 AM [facility] Creatinine 3.47(H) 0.50 - 1.10 mg/dL LAB CHEMISTRY METHOD 03/29/2024 10:07 AM [facility] eGFR 14(L) >=60 mL/min/1. 73m2 LAB CHEMISTRY METHOD 03/29/2024 10:07 AM [facility] Comment:Calculation based on the??Chronic Kidney Disease Epidemiology Collaboration (CKD-EPI) equation refit??without adjustment for race. BUN/Creatinine Ratio 12.1 LAB CHEMISTRY METHOD 03/29/2024 10:07 AM [facility] Albumin 2.0(L) 3.2 - 5.0 g/dL LAB CHEMISTRY METHOD 03/29/2024 10:07 AM [facility] Calcium 8.8 8.5 - 10.5 mg/dL LAB CHEMISTRY METHOD 03/29/2024 10:07 AM [facility] Phosphorus 2.5 2.5 - 4.5 mg/dL LAB CHEMISTRY METHOD 03/29/2024 10:07 AM [facility] Blood Venous blood specimen / Unknown Venipuncture / Unknown 03/29/2024 6:53 AM EST 03/29/2024 8:32 AM EST Catalina Burr MD LAB BLOOD ORDERABLES [facility] [address] [place] [address], * (ABNORMAL) Complete blood count (03/29/2024 6:53 AM EST) WBC 11.0(H) 4.8 - 10.8 K/mcL LAB HEMETOLOGY METHOD 03/29/2024 9:47 AM [facility] RBC 2.80(L) 3.80 - 4.80 M/mcL LAB HEMETOLOGY METHOD 03/29/2024 9:47 AM [facility] Hemoglobin 7.7(L) 11.5 - 16.0 g/dL LAB HEMETOLOGY METHOD 03/29/2024 9:47 AM [facility] Hematocrit 27.0(L) 35.0 - 47.0 % LAB HEMETOLOGY METHOD 03/29/2024 9:47 AM [facility] MCV 97.8 79.0 - 98.0 FL LAB HEMETOLOGY METHOD 03/29/2024 9:47 AM [facility] MCH 27.9 27.0 - 32.0 pcg LAB HEMETOLOGY METHOD 03/29/2024 9:47 AM [facility] MCHC 28.5(L) 32.0 - 37.0 g/dL LAB HEMETOLOGY METHOD 03/29/2024 9:47 AM [facility] RDW 17.5(H) 11.0 - 15.0 % LAB HEMETOLOGY METHOD 03/29/2024 9:47 AM EST [facility] Platelets 301 130 - 400 K/mcL LAB HEMETOLOGY METHOD 03/29/2024 9:47 AM EST [facility] MPV 10.3 7.0 - 11.0 FL LAB HEMETOLOGY METHOD 03/29/2024 9:47 AM EST [facility] NRBC 0.0 <1.0 % LAB HEMETOLOGY METHOD 03/29/2024 9:47 AM EST [facility] NRBC Absolute 0.00 <0.10 K/mcL LAB HEMETOLOGY METHOD 03/29/2024 9:47 AM EST [facility] Blood Venous blood specimen / Unknown Venipuncture / Unknown 03/29/2024 6:53 AM EST 03/29/2024 8:32 AM EST Catalina Burr MD LAB BLOOD ORDERABLES [facility] [address] [place], [place] [address] [phone] documented in this encounter Visit Diagnoses Diagnosis End stage renal disease (CMS/HCC) End stage renal disease documented in this encounter Care Teams Disability Aide Relationship Specialty Start Date End Date Marita Wetzel DO [address] [place] [address] PCP - General 01/09/23 documented as of this encounter
--- OUTSIDE RECORDS SUMMARY | 2024-05-27 20:22 | XMS_ITS | Encounter Summary ---
Author Organization [facility], Address [address] [place] [address] Phone Care Team Providers Care Certified Scrub Tech Name Role Phone Marita Wetzel DO Primary Care Provider Unava ilable Encounter Details Date Type Department Care Team (Late st Contact Info) Description 04/26/2024 Treatment [facility], [address] [place] [phone] Jeanne Bailey MD [facility] [address] [place] [address] Social History Tobacco Use Types Packs/Day Years [...] Dialysis Note - Jeanne Bailey MD - 04/26/2024 12:00 AM EST Patient: Alix Sharp : 1960 Note Type: Dialysis Rounds-Comp Service Date: 04/26/2024 This patient was personally seen for a complete visit as part of routine monthly dialysis care for end stage renal disease. Attending Mathematical Physicist: JEANNE BAILEY Dialysis Location: [facility] Schedule: M-W-F Shift: 2 OVERVIEW Patient is stable. COMMENTS: New start with post renal allograft failure. On low dsoe IS currently. Will start slow and increase time of HD over next few sessions. Emaciated and will need to be ran positive. Access working well today. Hopefully patient will feel better with HD. Discussion had with family. HOME MEDICATIONS Current [facility] Outpatient Medications clonidine 0.2 mg/24 hr [...] Unknown DIALYSIS PRESCRIPTION Treatment Data Treatment Date: 04/26/2024 started at: 2:39 PM Dialysate / Machine Temp (prescribed): 36.0*C Dialysate / Machine Temp (actual): 36.0*C BFR (prescribed): 300 BFR (average delivered): 350 DFR (prescribed): Manual 500 DFR (average delivered): 500 Prescribed Time: 03:00 Actual Time: 02:51 EDW (kg): 74.0 Dialyzer: 160NRe Optiflux Dialysate: 3.0 K, 2.50 Ca, 1.0 Mg, 100 Dextrose (QC1044) Sodium: 137 Bicarb: 35 Pre Dialysis Vitals Pre BP Sit: 130/69 Pre Wt (kg): 47.4 EDW Deviation (kg): -26.6 Temp: 97.9*F Post Dialysis Vitals Post BP Sit: 139/73 Post Wt (kg): 46.0 BP AND FLUID ASSESSMENT Post BP Sit 139/73 - 04/26/2024 152/100 - 04/23/2024 Post Wt (kg) 46.0 - 04/26/2024 43.6 - 04/23/2024 EDW (kg) 74.0 - 04/26/2024 74.0 - 04/23/2024 Deviation (kg) -28.0 - 04/26/2024 -30.4 - 04/23/2024 ADEQUACY ASSESSMENT Missed Treatments 0 - Last 30 days 0 - Last 60 days BUN 44 (04/23/24) 38 (04/20/24) 33 (02/10/24) Creatinine 3.62 (04/23/24) 3.26 (04/20/24) 3.61 (02/10/24) Bicarbonate (CO2) 21 (04/23/24) 17 (04/20/24) 15 (02/10/24) Sodium 142 (04/23/24) 143 (04/20/24) 137 (02/10/24) ACCESS ASSESSMENT AVGraft Synthetic - Standard (PTFE) Left Upper Arm Active (In Use) - 04/23/2024 Placed - 01/22/2024 ANEMIA ASSESSMENT Hemoglobin 8.0 (04/23/24) 7.9 (04/20/24) 7.8 (02/10/24) Hgb 6.5 (07/03/23) 7.9 (06/14/23) 7.9 (06/14/23) [...] 04/20/24 3.0 02/10/24 Phosphorus, Serum 2.6 05/29/23 4.6 04/29/23 Calcium Phosphorus Product 22 04/23/24 PTH 63 [...] reviewed. Dietary adjustments made in conjunction with supervisor pre wave. Transplant: The patient will be re-evaluated for a kidney transplant. Signed by: JEANNE BAILEY MD on 04/26/2024 at 08:23:44 PM Transcribed by: JEANNE BAILEY MD on 04/26/2024 at 08:23:44 PM documented in this encounter Plan of Treatment Upcoming Encounters Date Type Department Care Team (Late st Contact Info) Description 06/10/2024 11:45 PM EST Clinical Support [facility] Vascular Access [address] [place] [address] 06/29/2024 7:30 AM EDT Scheduled Only [facility] V[facility] Access [address] [place] [address] documented as of this encounter Visit Diagnoses Not on filedocumented in this encounter Care Teams Certified Scrub Tech Relationship Specialty Start Date End Date Marita Wetzel DO [address] [place] [address] PCP - General Family Medicine 11/14/22 documented as of this encounter
--- OUTSIDE RECORDS SUMMARY | 2024-05-27 20:22 | XMS_ITS | Encounter Summary ---
Author Organization [facility] Address [address] [place] [address] Care Team Providers Care Fuel Handler Name Role Phone Marita Wetzel Primary Care Provider +1- [phone] Encounter Details Date Type Department Care Team (Late st Contact Info) Description 02/24/2024 Lab Requisition [facility] - Main Lab [address] [facility] [place] [address] Norbert Lopez MD [address] [facility] 204 [facility] [phone] Encounter for other specified prophylactic measures; Acute kidney failure, unspecified (CMS/HCC) Social History [...] Procedure Name Priority Date/Time Associated Diagnosis Comments TRAVEL PHLEBOTOMY FEE Routine 02/24/2024 12:45 PM EST Encounter for other specified prophylactic measures Acute kidney failure, unspecified (CMS/HCC) HEPARIN ANTI XA Routine 02/24/2024 12:45 PM EST Encounter for other specified prophylactic measures Acute kidney failure, unspecified (CMS/HCC) COMPLETE BLOOD COUNT Routine 02/24/2024 12:45 PM EST Encounter for other specified prophylactic measures Acute kidney failure, unspecified (CMS/HCC) BASIC METABOLIC PANEL Routine 02/24/2024 12:45 PM EST Encounter for other specified prophylactic measures Acute kidney failure, unspecified (CMS/HCC) documented in this encounter Results * Travel phlebotomy fee (02/24/2024 12:45 PM EST) [facility] HOME TRAVEL PHLEBOTOMY FEE Completed 02/24/2024 2:[address] [facility] Blood Venous blood specimen / Unknown Venipuncture / Unknown 02/24/2024 12:45 PM EST 02/24/2024 1:29 PM EST Norbert Lopez MD LAB BLOOD ORDERABLES Performing Organization Address [facility]/ZIP Co de Phone Number [facility] [address] [place] [address], [place] [phone] * (ABNORMAL) Heparin and low molecular weight anti Xa level (02/24/2024 12:45 PM EST) [facility] Heparin Anti-Xa 0.28(L) 0.30 - 0.70 I Unit/mL LAB COAGULATION METHOD 02/24/2024 2:[address] [facility] Blood Venous blood specimen / Unknown Venipuncture / Unknown 02/24/2024 12:45 PM EST 02/24/2024 1:[address] [facility] - 02/24/2024 2:02 PM EST Therapeutic range listed is for Unfractionated Heparin. LMW Heparin therapeutic range: 0.50-1.20 IU/mL Norbert Lopez MD LAB BLOOD ORDERABLES Performing Organization Address City/[facility]/ZIP Co de Phone Number [facility] [address] [place] [address], [place] [phone] * (ABNORMAL) Basic metabolic panel (02/24/2024 12:45 PM EST) [facility] Sodium 137 133 - 145 mmol/L LAB CHEMISTRY METHOD 02/24/2024 3:[address] [facility] Potassium 3.7 3.5 - 5.5 mmol/L LAB CHEMISTRY METHOD 02/24/2024 3:10 PM [facility] Chloride 104 96 - 110 mmol/L LAB CHEMISTRY METHOD 02/24/2024 3:10 PM [facility] CO2 22 21 - 32 mmol/L LAB CHEMISTRY METHOD 02/24/2024 3:10 PM [facility] Anion Gap 11 3 - 11 LAB CHEMISTRY METHOD 02/24/2024 3:10 PM [facility] Glucose 163(H) 70 - 100 mg/dL LAB CHEMISTRY METHOD 02/24/2024 3:10 PM [facility] BUN 33(H) 5 - 25 mg/dL LAB CHEMISTRY METHOD 02/24/2024 3:10 PM [facility] Creatinine 3.25(H) 0.50 - 1.10 mg/dL LAB CHEMISTRY METHOD 02/24/2024 3:10 PM [facility] eGFR 15(L) >=60 mL/min/1. 73m2 LAB CHEMISTRY METHOD 02/24/2024 3:10 PM [facility] Comment:Calculation based on the??Chronic Kidney Disease Epidemiology Collaboration (CKD-EPI) equation refit??without adjustment for race. BUN/Creatinine Ratio 10.2 LAB CHEMISTRY METHOD 02/24/2024 3:10 PM [facility] Calcium 9.4 8.5 - 10.5 mg/dL LAB CHEMISTRY METHOD 02/24/2024 3:10 PM [facility] Blood Venous blood specimen / Unknown Venipuncture / Unknown 02/24/2024 12:45 PM EST 02/24/2024 1:29 PM EST Norbert Lopez MD LAB BLOOD ORDERABLES [facility] [address] [place] [address], * (ABNORMAL) Complete blood count (02/24/2024 12:45 PM EST) [facility] WBC 11.3(H) 4.8 - 10.8 K/mcL LAB HEMETOLOGY METHOD 02/24/2024 1:38 PM [facility] RBC 3.30(L) 3.80 - 4.80 M/mcL LAB HEMETOLOGY METHOD 02/24/2024 1:38 PM [facility] Hemoglobin 9.2(L) 11.5 - 16.0 g/dL LAB HEMETOLOGY METHOD 02/24/2024 1:38 PM [facility] Hematocrit 31.3(L) 35.0 - 47.0 % LAB HEMETOLOGY METHOD 02/24/2024 1:38 PM [facility] MCV 95.4 79.0 - 98.0 FL LAB HEMETOLOGY METHOD 02/24/2024 1:38 PM [facility] MCH 28.0 27.0 - 32.0 pcg LAB HEMETOLOGY METHOD 02/24/2024 1:38 PM [facility] MCHC 29.4(L) 32.0 - 37.0 g/dL LAB HEMETOLOGY METHOD 02/24/2024 1:38 PM [facility] RDW 16.6(H) 11.0 - 15.0 % LAB HEMETOLOGY METHOD 02/24/2024 1:38 PM [facility] Platelets 278 130 - 400 K/mcL LAB HEMETOLOGY METHOD 02/24/2024 1:38 PM [facility] MPV 10.7 7.0 - 11.0 FL LAB HEMETOLOGY METHOD 02/24/2024 1:38 PM [facility] NRBC 0.0 <1.0 % LAB HEMETOLOGY METHOD 02/24/2024 1:38 PM [facility] NRBC Absolute 0.00 <0.10 K/mcL LAB HEMETOLOGY METHOD 02/24/2024 1:[address] [facility] Blood Venous blood specimen / Unknown Venipuncture / Unknown 02/24/2024 12:45 PM EST 02/24/2024 1:29 PM EST Norbert Lopez MD LAB BLOOD ORDERABLES [facility] [address] [place] [address], documented in this encounter Visit Diagnoses Diagnosis Encounter for other specified prophylactic measures Acute kidney failure, unspecified (CMS/HCC) Acute kidney failure, unspecified documented in this encounter Care Teams Fuel Handler Relationship Specialty Start Date End Date Marita Wetzel DO [address] [place] [address] PCP - General 01/09/23 documented as of this encounter
--- OUTSIDE RECORDS SUMMARY | 2024-05-27 20:22 | XMS_ITS | Encounter Summary ---
Author Organization [facility] Address [address] [place] [address] Care Team Providers Care Housing Grant Analyst Name Role Phone Marita Wetzel Primary Care Provider +1- [phone] Encounter Details Date Type Department Care Team (Late st Contact Info) Description 02/25/[address] [facility] - Main Lab [address] [facility] [place] [address] Catalina Burr MD [address] [place] [address] Chronic embolism and thrombosis of unspecified vein; [...] Associated Diagnosis Comments TRAVEL PHLEBOTOMY FEE Routine 02/25/2024 6:30 AM EST Chronic embolism and thrombosis of unspecified vein Acute kidney failure, unspecified (CMS/HCC) TACROLIMUS LEVEL Routine 02/25/2024 6:30 AM EST Chronic embolism and thrombosis of unspecified vein Acute kidney failure, unspecified (CMS/HCC) documented in this encounter Results * Travel phlebotomy fee (02/25/2024 6:30 AM EST) [facility] TRAVEL PHLEBOTOMY FEE Completed 02/25/2024 11:01 AM EST [facility] ([facility] Blood Venous blood specimen / Unknown Venipuncture / Unknown 02/25/2024 6:30 AM EST 02/25/2024 10:25 AM EST Catalina Burr MD LAB BLOOD ORDERABLES [facility] [place] ([facility]) [facility] [address] [place] [address], * (ABNORMAL) Tacrolimus level (02/25/2024 6:30 AM EST) Tacrolimus Level 3.8(L) 5.0 - 20.0 ng/mL 02/28/2024 12:37 PM EST [facility] Comment: Additional Information: [...] developed and the performance characteristics determined by [facility]. This confirmation testing has not been cleared or approved by the FDA. The laboratory is regulated under CLIA as qualified to perform high-complexity testing. This test is used for patient testing purposes. It should not be regarded as investigational or for research. Test performed at [facility], [address], [place], [place] ??[address] ? [phone] Ashtyn Leigh MD, PhD - [employer] Blood Venous blood specimen / Unknown Venipuncture / Unknown 02/25/2024 6:30 AM EST 02/25/2024 10:25 AM EST Catalina Burr MD LAB BLOOD ORDERABLES [facility] [address] [place] [address] documented in this encounter Visit Diagnoses Diagnosis Chronic embolism and thrombosis of unspecified vein Acute kidney failure, unspecified (CMS/HCC) Acute kidney failure, unspecified documented in this encounter Care Teams Housing Grant Analyst Relationship Specialty Start Date End Date Marita Wetzel DO [address] [place] [address] PCP - General 01/09/23 documented as of this encounter
--- OUTSIDE RECORDS SUMMARY | 2024-05-27 20:22 | XMS_ITS | Encounter Summary ---
Author Organization [facility], Address [address] [place] [address] Phone Care Team Providers Care Legislative Assistant Name Role Phone Marita Wetzel DO Primary Care Provider Unava ilable Encounter Details Date Type Department Care Team (Late st Contact Info) Description 04/30/2024 Orders Only [facility] [address] [place] [phone] Srinivas Agrawal MD [address] [place] [address] [place] [phone] Social History Tobacco Use Types Packs/Day Years [...] Support [facility] [address] [place] [address] [place] [phone] 06/29/2024 7:30 AM EDT Scheduled Only [facility] [address] [place] [address] [place] [phone] documented as of this encounter Procedures Procedure Name Priority Date/Time Associated Diagnosis Comments TRACE ELEMENTS Routine 04/30/2024 CHEMISTRY Routine 04/30/2024 documented in this encounter Results * (ABNORMAL) TRACE ELEMENTS (04/30/2024) Aluminum 31(H) 0 - 10 mcg/L [facility] Comment: This test was developed and its performance characteristics determined by [facility]. It has not been cleared or approved by the FDA. The laboratory is regulated under CLIA as qualified to perform high complexity testing. This test is used for clinical purposes. It should not be regarded as investigational or for research. Verified by repeat analysis. Questionable result; result is significantly different from previous value. 04/30/2024 05/04/2024 9:5 8 AM EST Narrative [facility] - 05/04/2024 Unless otherwise specified, test(s) performed at: [facility], [address] [place], [place] [id number] MANAGER BUSINESS: Dwayne Fuentes M.D. For any questions, please call customer service at FREQUENCY:OTHER Resulting Agency Comment Specimen source: Serum Srinivas Agrawal MD LAB BLOOD ORDERABLES Final Result [facility] See order comments or contact performing lab Unknown, [place] * Spectra Chemistry (04/30/2024) Pathologist [facility] Potassium 4.9 3.5 - 5.1 mEq/L [facility] Bicarbonate (CO2) 27 22 - 29 mEq/L [facility] 04/30/2024 05/04/2024 9:2 7 AM EST Narrative [facility] - 05/04/2024 Unless otherwise specified, test(s) performed at: [facility], [address] [place] [id number] MANAGER BUSINESS: Dwayne Fuentes M.D. For any questions, please call customer service at FREQUENCY:OTHER Resulting Agency Comment Specimen source: Serum Srinivas Agrawal MD LAB BLOOD ORDERABLES Final Result [facility] See order comments or contact performing lab Unknown, [place] documented in this encounter Visit Diagnoses Not on filedocumented in this encounter Care Teams Legislative Assistant Relationship Specialty Start Date End Date Marita Wetzel DO [address] [place] [address] PCP - General Family Medicine 11/14/22 documented as of this encounter
[2024-05-27 20:50] LABS: Basophils Absolute Auto 0.1 X10*3/uL (0.0-0.2); Basophils Percent Auto 0.3 % (0-2); Eosinophils Percent Auto 0.2 % (0-4); Hematocrit 28.2 % (37.0-47.0); Hemoglobin 8.4 g/dl (12.0-16.0); Imm Gran Pct Auto 1.5 % (0.0-0.4); Lymphocytes Percent Auto 5.3 % (20-40); MANUAL DIFF FLAG SCAN; Mean Corpuscular HGB Conc 29.8 g/dl (31.0-35.0); Mean Corpuscular Hemoglobin 27.3 pg (27.0-33.0); Mean Corpuscular Volume 91.6 fL (80.0-98.0); Monocytes Absolute Auto 1.6 X10*3/uL (0.1-1.2); Monocytes Percent Auto 8.2 % (2-11); Neutrophils Absolute Auto 16.4 x10*3/uL (2.0-8.3); Neutrophils Percent Auto 84.5 % (45-73); Platelet Count 321 X10*3/uL (160-400); Red Blood Count 3.08 X10*6/uL (4.20-5.50); Red Cell Distribution Width 17.8 % (11.0-16.0); SCAN SMEAR FLAG 1; White Blood Count 19.4 X10*3/uL (4.8-10.8)
[2024-05-27 20:58] LABS: Alanine Aminotransferase < 6 U/L (0-31); Aspartate Amino Transferase 19 U/L (5-31); Bilirubin Total 0.4 mg/dL (0.0-1.0); Calcium 9.6 mg/dL (8.4-10.2); Creatinine Clr Calc Pharmacy 14.3; Estimated Glomerular Filt Rate 16; Glucose Random 88 mg/dL (60-115); Total Protein 0.4 g/dL (6.5-8.0)
[2024-05-27 20:59] LABS: Albumin Level 2.7 g/dL (3.5-5.0); Alkaline Phosphatase 69 U/L (39-117); Anion Gap 14 (12-20); Blood Urea Nitrogen 53 mg/dL (9-16); Carbon Dioxide 24 mmol/L (22-29); Chloride 103 mmol/L (96-108); Lipase 9 U/L (8-78); Potassium 6.9 mmol/L (3.3-5.1); Sodium 134 mmol/L (135-145)
[2024-05-27 21:00] LABS: INTERNATIONAL NORM RATIO 1.1 (0.9-1.1); Prothrombin Time 12.6 SEC (10.9-12.4)
[2024-05-27] MEDS: Albuterol Sulfate 7.5 MG, Albuterol Sulfate (0.083%) 2.5 MG 10 MG INHALE (21:16)
[2024-05-27 21:23] LABS: SLIDE REVIEW VERIFIED
--- NOTE | 2024-05-27 21:25 | PC.NURSE ---
multiple attempts for iv, family reported after pt has chest port to R. chest, [place] of [place] [facility], consulted with Chase CRUZ, awaiting approval for access.
--- NOTE | 2024-05-27 21:42 | MHC.CM.ED ---
Pt will be admitted. Work -up continues. requested to speak with CM. Pt was recently at [facility]. She appears frail and ill. Pt tells CM she wants to . Pt had kidney transplant, is rejecting kidney and is on dialysis. is very concerned about having a hospital bed at home. tells CM they had one ordered from [facility], but cancelled it because it did not fit in her room. They have decided to use another room and his main concern is that she gets a hospital bed at home. CM suggested son calls [facility] and see if the order for the bed is still valid. They may be able to rescind the cancellation and have a bed delivered to their home. CM explained that the CM on the floor will be following his .
[2024-05-27] MEDS: Insulin Regular, Human 100 UNIT/ML 10 ML VIAL IVPUSH (21:55)
[2024-05-27] MEDS: Dextrose 50 % 25 GM/50 ML SYRINGE IVPUSH (21:57)
[2024-05-27] MEDS: 0.9 % Sodium Chloride 500 ML IV (22:00)
[2024-05-27] MEDS: cefTRIAXone sodium 1 GM VIAL IVPUSH (22:00)
[2024-05-27] MEDS: Sodium Bicarbonate 8.4% 50 MEQ/50 ML SYRINGE IVPUSH (22:00)
[2024-05-27] MEDS: Calcium Gluconate/NaCl,Iso-Osm 2 GM/100 ML PLAST..BAG IV (22:00)
[2024-05-27 22:11] LABS: Lactic Acid 0.5 mmol/L (0.5-2.0)
[2024-05-27] MEDS: Azithromycin 500 MG in 0.9 % Sodium Chloride 250 ML 125 MG IV (22:15)
[2024-05-27] MEDS: Sodium Zirconium Cyclosilicate 10 GM POWD.PACK PO (22:19)
--- NOTE | 2024-05-27 22:33 | PC.NURSE ---
late entry: assumed care of pt 1929, difficult draw multiple attempts for labs delay in draw. downtime with imaging, delay in images being obtained. previous note approval received to access chest port by Chase CRUZ/Jim HRERERA. chest port accessed as documented pt tolerated well. +blood return. blood cultures obtained per PA order. pt medicated per jun. reports 01/28 R. hip pain, assisted to lay on L. side with pillow support, pt reports comfort. PA made aware of temp/pain and ordered IV Tylenol. pt request dilaudid for pain, PA made aware and in agreement. resp even and unlabored sats 98% on RA. call timmons within reach.
--- NOTE | 2024-05-27 22:40 | PC.NURSE ---
pt passed initial swallow eval however cough noted after drinking lokelma, sats remained 97-98% on RA. Chase CRUZ made aware. made NPO at this time. pt stated shes been having this issue with her meds, itll make her cough for some time after taking them.
[2024-05-27] MEDS: Acetaminophen 1,000 MG/100 ML PIGGYBACK 400 MG IV (22:51)
[2024-05-27] MEDS: HYDROmorphone HCl 0.5 MG/0.5 ML SYRINGE IVPUSH (22:51)
[2024-05-27 22:53] LABS: Influenza A PCR NEGATIVE (Negative); Influenza B PCR NEGATIVE (Negative); Resp Syncy Virus RNA Qual PCR NEGATIVE (Negative); SARS COV2 PCR INHOUSE NEGATIVE (Negative)
[2024-05-28] VITALS (7 sets, daily range): BP systolic 114–143; BP diastolic 50–70; PULSE 62–78; RESP 12–20; TEMP 36.2–37.6; O2SAT 94–100; BMI 17.1; BMI 17.5
[2024-05-28] LABS: Anion Gap 14 (12-20); Blood Urea Nitrogen 50 mg/dL (9-16); Calcium 9.4 mg/dL (8.4-10.2); Carbon Dioxide 23 mmol/L (22-29); Chloride 104 mmol/L (96-108); Creatinine Clr Calc Pharmacy 14.1; Estimated Glomerular Filt Rate 15; Glucose Random 76 mg/dL (60-115); Potassium 6.1 mmol/L (3.3-5.1); Sodium 135 mmol/L (135-145)
[2024-05-28 00:16] LABS: Troponin-I High Sensitivity 21.7 ng/L (<3.5-17.0)
[2024-05-28 03:31] LABS: Potassium 6.1 mmol/L (3.3-5.1)
--- NOTE | 2024-05-28 04:48 | PC.NURSE ---
MD made aware of pain level and pt requesting ivp dilaudid.
--- NOTE | 2024-05-28 05:48 | PC.NURSE ---
abscess-like wound noted to R. elbow area and R thigh above the knee, pt had gauze dressing covering, removed. slough-like matter noted. cleaned with sterile water and nonstick pad applied. MD made aware suggesting wound consult. pt states these have been an ongoing issue and they come and go. also found to be incontinent of urine and small soft BM. stanford care provided. new bed linen/gown/blankets. pt repositioned to R. side. call timmons within reach. MD reminded of pt pain level.
--- NOTE | 2024-05-28 06:18 | P.HPHOSP_ITS ---
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 She is a poor historian and her son had already left the ER when I got to see her so most of the history is from the emergency room provider who got to speak to her son. She apparently lives alone and has been unwell for sometime now and that yesterday, she was very ill and missed her dialysis session. On arrival to the emergency room, she was febrile with a temperature of had a fever 101.1? F and a blood work done revealed a leukocytosis of 19.4 kg with 84% neutrophils. She was anemic with a hemoglobin of 8.5 and a hematocrit of 28.2. Additionally her potassium was elevated at 6.9 and high sensitivity troponin I was also mildly elevated at 21.7 but she has had no chest pain and EKG done did not show any ischemic changes. A chest x-ray done showed a right mid lung and left lower lobe patchy consolidation concerning for multifocal pneumonia and also diffuse interstitial prominence and small right pleural effusion but may represent a pulmonary edema /fluid overload. She received IV antibiotics ( ceftriaxone and azithromycin), Lokelma and the sodium bicarbonate at admission was requested for continued care. 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) Kidney transplant status History of appendectomy H/O cardiac catheterization Social History Household Members: Family Housing: House Do you presently have visiting nurse or other home services: No Alcohol intake: never Comment: patient is bedbound at this time Patient Tobacco Use Status: Never used Tobacco service: No Meds Allergies Allergy/AdvReac Type Severity Reaction Status Date / Time codeine [CODEINE] Allergy Intermediate Hives and Verified 05/27/24 17:47 pruritus oxycodone [OXYCODONE] Allergy Intermediate HIVES Verified 05/27/24 17:47 Home Medications ?Medication ?Instructions ?Recorded ?Confirmed ?Last Taken ?Type epoetin natali 40,000 unit/mL 40,000 unit IV MO 12/31/23 04/07/24 Unknown History injection solution (Procrit) acetaminophen 325 mg tablet 650 mg PO Q4H PRN Mild Pain (Scale 04/07/24 04/07/24 Unknown History Score 1-4) acetaminophen 325 mg tablet 650 mg PO Q6H PRN Fever 04/07/24 04/07/24 Unknown History bisacodyl 10 mg rectal suppository 10 mg UT DAILY PRN no result from 04/07/24 04/07/24 Unknown History (Dulcolax (bisacodyl)) MOM by next shift carvedilol 25 mg tablet 25 mg PO BID 04/07/24 04/07/24 Unknown History dextrose 40 % oral gel 20 g PO Q15M PRN BG less than 70 04/07/24 04/07/24 Unknown History diphenhydramine HCl 25 mg tablet 25 mg PO BID PRN itchiness 04/07/24 04/07/24 Unknown History docusate sodium 100 mg capsule 100 mg PO DAILY PRN Constipation 04/07/24 04/07/24 Unknown History glucagon 1 mg injection kit 1 mg IM DAILY PRN BG less than 70 04/07/24 04/07/24 Unknown History hydromorphone 4 mg tablet 4 mg PO Q4H PRN moderate to severe 04/07/24 04/07/24 Unknown History pain insulin lispro 200 unit/mL (3 mL) 1 sliding scale dose subcut 04/07/24 04/07/24 Unknown History subcutaneous pen USEASDIRECTD isosorbide mononitrate 30 mg 30 mg PO DAILY 04/07/24 04/07/24 Unknown History tablet,extended release 24 hr magnesium hydroxide 400 mg/5 mL 30 ml PO DAILY PRN no BM in 3 days 04/07/24 04/07/24 Unknown History oral suspension (Milk of Magnesia) ondansetron HCl 4 mg tablet 4 mg PO Q8H PRN Nausea And Vomiting 04/07/24 04/07/24 Unknown History pantoprazole 40 mg tablet,delayed 40 mg PO DAILY@0630 04/07/24 04/07/24 Unknown History release prednisone 2.5 mg tablet 7.5 mg PO DAILY 04/07/24 04/07/24 Unknown History sertraline 25 mg tablet 25 mg PO DAILY 04/07/24 04/07/24 Unknown History sodium bicarbonate 650 mg tablet 1,300 mg PO BID 04/07/24 04/07/24 Unknown History sodium phosphates 19 gram-7 118 ml UT DAILY PRN if no result 04/07/24 04/07/24 Unknown History gram/118 mL enema (Fleet Enema) from dulcolax within 2 hours sucralfate 1 gram tablet 1 g PO QIDACHS 04/07/24 04/07/24 Unknown History tacrolimus 5 mg capsule,extended 10 mg PO DAILY 04/07/24 04/07/24 Unknown History release 24 hr vitamin B complex-vitamin C-folic 1 tab PO DAILY 04/07/24 04/07/24 Unknown History acid 0.8 mg tablet (Nephro Vitamins) Physical Exam 2 Vital Signs and Narrative: Vital Signs: Last Vital Signs Temp 97.2 F 05/28/24 03:32 Pulse 62 05/28/24 03:32 Resp 12 05/28/24 03:32 BP 117/50 L 05/28/24 03:32 Pulse Ox 96 05/28/24 03:32 O2 Del Method Room Air 05/28/24 03:32 BMI result Body Mass Index 17.1 General: Ill appearing, cachectic female who appears older than her stated age. Sleepy and have to keep stimulating her to keep her awake. In no obvious respiratory distress. Psychiatric: Unable to assess cognition and affect. HEENT: Normocephalic, atraumatic. Bitemporal wasting. No pallor or jaundice. Dry oral mucus membranes. Neck: Supple. No JVD Lungs: Coarse bilateral breath sounds. Few bibasilar rales. No wheezing. Heart: RRR. Normal s1/s2. No murmurs, rubs or gallops. No peripheral edema. Abdomen: Scaphoid, Soft, non-tender. Normoactive bowel sounds. No visceromegaly. Genitourinary: Deferred Back/Spine/Pelvis: Deferred Skin: Warm, dry, well perfused. Decreased turgor. No mottling. Normal capillary refill (< 2 seconds). Neurologic: sleepy but opens eyes to stimulation and attempts to answer questions. Not following basic instructions. Comprehensive neurological exam not completed due to patient's poor cooperation. Extremities: Decreased muscle bulk in all extremities. Tone and power note assessed. However with no obvious deformities. No peripheral edema. Good peripheral pulses. Results Labs 05/27/24 20:14 05/28/24 03:02 Labs: Laboratory Results - last 24 hr 05/27/24 05/27/24 05/27/24 20:14 21:44 23:34 MCV 91.6 MCH 27.3 MCHC 29.8 L RDW 17.8 H Plt Count 321 MPV 10.0 Immature Gran % (Auto) 1.5 H Neut % (Auto) 84.5 H Lymph % (Auto) 5.3 L [place] % (Auto) 8.2 Eos % (Auto) 0.2 Baso % (Auto) 0.3 Lymph # (Auto) 1.0 L [place] # (Auto) 1.6 H Eos # (Auto) 0.0 Baso # (Auto) 0.1 Abs Immat Gran (auto) 0.30 H Absolute Neuts (auto) 16.4 H Absolute Nucleated RBC 0.000 Nucleated RBC % (auto) 0.0 Smear Tech's Comments VERIFIED PT 12.6 H INR 1.1 Anion Gap 14 14 Estim Creat Clear Calc 14.3 14.1 Estimated GFR 16 15 Random Glucose 88 76 Lactic Acid 0.5 Calcium 9.6 D 9.4 Phosphorus Total Bilirubin 0.4 AST 19 ALT < 6 Alkaline Phosphatase 69 Troponin I High Sens 21.7 H Total Protein 0.4 L Albumin 2.7 L Lipase 9 Influenza Type A (PCR) NEGATIVE Influenza Type B (PCR) NEGATIVE RSV RNA Qual (PCR) NEGATIVE SARS-CoV-2 RNA (RT-PCR) NEGATIVE 05/28/24 03:02 MCV MCH MCHC RDW Plt Count MPV Immature Gran % (Auto) Neut % (Auto) Lymph % (Auto) [place] % (Auto) Eos % (Auto) Baso % (Auto) Lymph # (Auto) [place] # (Auto) Eos # (Auto) Baso # (Auto) Abs Immat Gran (auto) Absolute Neuts (auto) Absolute Nucleated RBC Nucleated RBC % (auto) Smear Tech's Comments PT INR Anion Gap Estim Creat Clear Calc Estimated GFR Random Glucose Lactic Acid Calcium Phosphorus 2.0 L Total Bilirubin AST ALT Alkaline Phosphatase Troponin I High Sens Total Protein Albumin Lipase Influenza Type A (PCR) Influenza Type B (PCR) RSV RNA Qual (PCR) SARS-CoV-2 RNA (RT-PCR) Assessment and Plan (1) ESRD (end stage renal disease) on dialysis: Status: Acute (2) Asthenia: Status: Acute (3) Hyperkalemia: Status: Acute (4) Pneumonia, community acquired: Status: Acute (5) Severe malnutrition: Status: Acute Plan 64 year old with history of ESRD on HD MWF, hypertension, hyperlipidemia, HFrEF, T2DM, GERD with esophagitis, presents to the ER from home via EMS with 1. ESRD - on HD MWF - she unfortunately missed her lasthemodialysis session due to feeling unwell - admit and consult Nephrology for dialysis while inpatient (ED provider spoke to who will see the patient) 2. Asthenia - she reports being very weak and not able to do much - likely due to existing medical issues (renal failure, anemia and pneumonia) - admit and continue with IV antibioitics 3. Hyperkalemia - due to ESRD with missed dialysis - will benefit from hemodialysis which is planned for today 4. Community-acquired pneumonia - chest x-ray with findings concerning for pneumonia (RML & RLL patchy consolidation) - continue IV ceftriaxone and azithromycin 5. Severe malnutrition - BMI 17 - encourage oral intake - consider ID ensure to her diet Total time managing care of this patient today: 75 minutes. Quality Stroke Does the patient have a stroke diagnosis?: No VTE Prior VTE?: No VTE Risk Level:: Medical - moderate - high VTE Device Contraindication: N/A - Device Ordered VTE Drug Contraindication: N/A - Med Ordered
[2024-05-28] MEDS: HYDROmorphone HCl 0.5 MG/0.5 ML SYRINGE IVPUSH ×2 (06:39→23:16)
[2024-05-28 07:19] LABS: Basophils Absolute Auto 0.1 X10*3/uL (0.0-0.2); Basophils Percent Auto 0.3 % (0-2); Eosinophils Percent Auto 0.2 % (0-4); Hemoglobin 7.7 g/dl (12.0-16.0); Imm Gran Pct Auto 1.8 % (0.0-0.4); Lymphocytes Absolute Auto 0.8 X10*3/uL (1.2-4.9); Lymphocytes Percent Auto 4.7 % (20-40); MANUAL DIFF FLAG SCAN; Mean Corpuscular HGB Conc 29.6 g/dl (31.0-35.0); Mean Corpuscular Hemoglobin 27.4 pg (27.0-33.0); Mean Corpuscular Volume 92.5 fL (80.0-98.0); Mean Platelet Volume 10.2 fL (9.4-12.3); Monocytes Absolute Auto 1.5 X10*3/uL (0.1-1.2); Monocytes Percent Auto 8.9 % (2-11); Neutrophils Absolute Auto 14.4 x10*3/uL (2.0-8.3); Neutrophils Percent Auto 84.1 % (45-73); Platelet Count 320 X10*3/uL (160-400); Red Blood Count 2.81 X10*6/uL (4.20-5.50); Red Cell Distribution Width 17.4 % (11.0-16.0); SCAN SMEAR FLAG 1; White Blood Count 17.1 X10*3/uL (4.8-10.8)
[2024-05-28 07:42] LABS: SLIDE REVIEW VERIFIED
[2024-05-28 07:47] LABS: Alanine Aminotransferase < 6 U/L (0-31); Albumin Level 2.4 g/dL (3.5-5.0); Alkaline Phosphatase 64 U/L (39-117); Anion Gap 14 (12-20); Aspartate Amino Transferase 18 U/L (5-31); Bilirubin Total 0.4 mg/dL (0.0-1.0); Blood Urea Nitrogen 53 mg/dL (9-16); Calcium 9.6 mg/dL (8.4-10.2); Carbon Dioxide 23 mmol/L (22-29); Chloride 105 mmol/L (96-108); Creatinine Clr Calc Pharmacy 13.7; Estimated Glomerular Filt Rate 15; Glucose Random 72 mg/dL (60-115); Potassium 5.9 mmol/L (3.3-5.1); Sodium 136 mmol/L (135-145); Total Protein 6.6 g/dL (6.5-8.0)
[2024-05-28 08:40] LABS: Immature Retic Fraction 11.1 % (3.0-15.9); Retic HGB Equivalent 25.2 pg (30.0-35.0); Reticulocyte Percent 1.2 % (0.5-1.8); Reticulocytes Absolute 0.034 X10*6/uL (0.026-0.095)
[2024-05-28 08:53] LABS: Iron 19 mcg/dL (30-160); Lactate Dehydrogenase 195 U/L (122-220); Percent Iron Saturation 22 % (15-50); Total Iron Binding Capacity 87 mcg/dL (228-428); Unsaturated Iron Binding 68 ug/dL
[2024-05-28] MEDS: Albuterol Sulfate 2.5 MG, Albuterol Sulfate (0.083%) 2.5 MG 5 MG INHALE (09:04)
--- NOTE | 2024-05-28 09:28 | MHC.CM.PN ---
Addendum entered by Rabia Zepeda 05/28/24 14:41: Pt is active with [facility] Original Note: IMM 05/28/24, pt. lives with her , she does not have home health services at this time. She goes to [facility] in [place]. A few months ago she fell and fx her hip, she had surgery and went to [facility] for STR. She said it was fine (just that she was there a long time). At this time, she is using a W/C, she has a walker, used to use. PCP confirmed: Marita Wetzel, HCP on file and confirmed: Sly palacios and Sly Hawkins DCP: home with services or STR. CM to follow for DC needs.
[2024-05-28 09:40] LABS: Ferritin 9043 ng/mL (10-250)
[2024-05-28] MEDS: 0.9 % Sodium Chloride Flush 3 ML SYRINGE IVFLUSH ×3 (10:03→23:45)
[2024-05-28 10:08] LABS: Glucose, Whole Blood 114 mg/dL (60-115)
[2024-05-28] MEDS: Insulin Regular, Human 100 UNIT/ML 10 ML VIAL IVPUSH (10:09)
[2024-05-28] MEDS: Dextrose 50 % 25 GM/50 ML SYRINGE IVPUSH (10:11)
[2024-05-28] MEDS: Heparin Sodium,Porcine 5,000 UNIT/ML VIAL 5000 UNIT SUBCUT ×2 (10:11→15:23)
--- NOTE | 2024-05-28 10:15 | MHC.CLN ---
NUTRITION PATIENT WITH ESRD ON HEMODIALYSIS. MEDICAL DX MALNUTRITION. CHANGED DIET TO 2 GRAM SODIUM, LOW POTASSIUM. LABS SHOW HIGH POTASSIUM. ADDING ENSURE CLEAR TID, A RENAL FRIENDLY SUPPLEMENT. PROVIDES 720 KCALS, 24 G PROTEIN. CLINICAL NUTRITION ASSESSMENT TO BE COMPLETED UPON ADMISSION TO UNIT.
--- NOTE | 2024-05-28 10:27 | PHA.MEDREC ---
Addendum entered by Huyen Gavin [facility] 06/14/24 18:25: Spoke to patient's and son who confirmed the Envarsus is 8mg daily despite RX written for 6mg daily. Addendum entered by Anastasiia Mccoy [facility] 05/28/24 10:47: Reviewed by [facility]. Will let provider know about Procrit. Original Note: Pharmacy Consult ? Medication Reconciliation Pharmacy has completed the medication reconciliation. Spoke to patient family at bedside to confirm med list. Family states patient was just discharged from [facility] on [address] 2 weeks ago. Called [facility] to get a list, however they didn't have access to patient medications. Son states he gave a list to EMS. Checked patients file and there was a discharge packet from [facility] from 05/21/2024. Utilized list to confirm med list. couldn't confirm the current dose on Procrit. Discharge packet has see instructions . Spoke to inpatient pharmacy at [facility] to confirm dose. [facility] confirmed that patient has been in patient a 05/12/24-05/21/24 but hasn't received while she was inpatient. They may be getting it out patient. Spoke to out patient renal unit and they have not seen patient yet. Patient was discharged from [facility] 04/07/25 she was in SNF at the time and was getting Procrit 40,000 iv Mondays per discharge packet.
[2024-05-28 11:01] LABS: Glucose, Whole Blood 158 mg/dL (60-115)
[2024-05-28] MEDS: Sodium Bicarbonate 650 MG TABLET 1300 MG PO ×2 (11:41→21:07)
[2024-05-28] MEDS: Multivitamin TABLET 1 TAB PO (11:42)
[2024-05-28] MEDS: carvediloL 25 MG TABLET PO ×2 (11:42→21:10)
[2024-05-28] MEDS: Sucralfate 1 GM TABLET PO ×2 (11:42→21:07)
[2024-05-28] MEDS: Sertraline HCL 25 MG TABLET PO (11:42)
[2024-05-28] MEDS: Isosorbide Mononitrate 30 MG TAB.ER.24H PO (11:42)
[2024-05-28] MEDS: Magnesium Oxide 400 MG TABLET PO ×2 (11:42→21:07)
--- NOTE | 2024-05-28 13:50 | PM.EVENT ---
Event Note Date of Service: 05/28/24 Event Note: Day hospitalist update S: coughing but not short of breath missed HD Wed O: Temp Pulse Resp BP Pulse Ox O2 Del Method 98.2 F 69 16 135/55 L 94 Room Air 05/28/24 09:09 05/28/24 11:39 05/28/24 11:39 05/28/24 11:39 05/28/24 11:39 05/28/24 11:39 Gen: in no acute distress, malnourished HEENT: sclera anicteric, moist mucus membranes Neck: supple Lungs: clear to auscultation bilaterally Heart: regular rate and rhythm, no murmurs Abd: soft, non-tender, non-distended, very thin Ext: no edema Skin: warm/well-perfused Neuro: alert and oriented x3, no focal findings Psych: appropriate affect labs: WBC 17.7, Hb 7.7, K 5.9, BUN 53, SCr 3.13, PCT 1.5, iron 19, ferritin 9043 CXR 05/27: 1. Right mid lung and left lower lobe patchy consolidation may represent multifocal pneumonia. 2. Diffuse interstitial prominence and small right pleural effusion may represent pulmonary edema /fluid overload. 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
--- NOTE | 2024-05-28 14:26 | MHC.CLN ---
Addendum entered by Valerie Moreno RD 05/28/24 15:21: SKIN WITH OPEN WOUND TO COCCYX AND RIGHT THIGH. GODFREY=14. ENSURE CLEAR TID SUPPLEMENT APPROPRIATE TO PROMOTE WOUND HEALING. Original Note: NUTRITION DIET=2 GRAM SODIUM, LOW POTASSIUM. SUPPLEMENT ENSURE CLEAR TID. SUPPLEMENT PROVIDES 720 KCALS, 24 G PROTEIN AND IS RENAL FRIENDLY. SIGNIFICANT WEIGHT LOSS X 2 MONTHS AND 5 MONTHS. WEIGHT=48 KG WITH MISSED DIALYSIS. ANTICIPATE WEIGHT LOSS POST DIALYSIS. QUALIFIES SEVERELY MALNOURISHED IN THE CONTEXT OF CHRONIC ILLNESS. FOLLOW FOR PO INTAKE AND WEIGHTS. PATIENT ASSESSED WHILE IN ED. TRANSPORTER ARRIVED TO TAKE PATIENT TO UNIT. SEE CLINICAL NUTRITION ASSESSMENT 05/28/24.
[2024-05-28 15:32] LABS: Glucose, Whole Blood 93 mg/dL (60-115)
--- NOTE | 2024-05-28 18:15 | MHC.SL.SWA ---
Speech Pathologist Impression: Risk of Aspiration, Mild Oral Phase Dysphagia Dysphasia Diet Status:Downgrade to NDD3 Liquid Consistency and Strategies for Safe Swallow: Liquid Intake Recommendation: Thin Liquid Intake Strategies: Small Sips Solid Food Consistency: Dietary Recommendations: Chopped/Advanced (NDD3) Additional Modifications to Solid Foods: Patient w/ mild oral phase dysphagia, characterized by slowed, disorganized, and piece meal chewing, w/ limited natural dentition. No overt s/s of aspiration noted at bedside with trials of solids and liquids. Recommend DOWNGRADE to CHOPPED/ADVANCED (NDD3) diet for ease of mastication and THIN liquids, pills WHOLE or CRUSHED in PUREE. Strategies recommended to promote oral clearance: take small bites, chew food well, alternate with sips of liquid, dry swallow between bites. Oral Medication Intake: Whole with Puree Please contact the pharmacy regarding appropriate crushable or liquid drug formulations that are available whenever modified delivery is recommended. Compensatory Strategies and Precautions to be Taken for Safe Swallow: Sitting Upright (90 deg) Double Swallow Small Bites and Sips Alternate Liquids/Solids Rate of Ingestion Change Avoid Specific Foods Supervision While Eating and Drinking for Safe Swallow: Total Supervision (1:1) Foods to Avoid: Hard or tough to chew solids Swallowing Recommended Treatments: Compens. Strategy Educat. Recommendation for Speech: Inpatient Speech Therapy Comment: 1-2 f/u Frequency/Duration: Date Range for Service Req: Timeline to reassess: Airplane Dispatch Clerk Clinican/Clinical Fellow: No Supervisory Statement: I have reviewed and agree with the student/clinical fellow's documentation: N/A Speech Language Pathologist: Vannessa Pham M.A., CCC-LADLE REPAIRER
--- NOTE | 2024-05-28 19:59 | P.CONNP_ITS ---
History of Present Illness Reason for Consult Consult date: 05/28/24 Chief Complaint Chief complaint: multifocal pneumonia History of Present Illness Narrative: 64 year old with history of ESRD on HD MWF who presented to the ER from home via EMS with multiple complains including feeling generally unwell with headaches, shortness of breath and mild abdominal pain. She apparently lives alone and has been unwell for sometime now and that yesterday, she was very ill and missed her dialysis session. On arrival to the emergency room, she was febrile with a temperature of had a fever 101.1? F and a blood work done revealed a leukocytosis of 19.4 kg with 84% neutrophils. She was anemic with a hemoglobin of 8.5 and a hematocrit of 28.2. Additionally her potassium was elevated at 6.9 and high sensitivity troponin I was also mildly elevated at 21.7 but she has had no chest pain and EKG done did not show any ischemic changes. A chest x-ray done showed a right mid lung and left lower lobe patchy consolidation concerning for multifocal pneumonia and also diffuse interstitial prominence and small right pleural effusion but may represent a pulmonary edema /fluid overload. She received IV antibiotics ( ceftriaxone and azithromycin), Lokelma and the sodium bicarbonate and was admitted for further management. 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) Kidney transplant status History of appendectomy H/O cardiac catheterization Social History Social History Household Members: Spouse Housing: House Do you presently have visiting nurse or other home services: Yes Alcohol intake: never Comment: patient is bedbound at this time Patient Tobacco Use Status: Never used Tobacco service: Yes Meds Allergies Allergy/AdvReac Type Severity Reaction Status Date / Time codeine [CODEINE] Allergy Intermediate Hives and Verified 05/27/24 17:47 pruritus oxycodone [OXYCODONE] Allergy Intermediate HIVES Verified 05/27/24 17:47 Active Medications: Current Medications Acetaminophen (Acetaminophen 325 Mg Tablet) 650 mg PO Q6H PRN PRN Reason: Pain, Mild 1-3,fever,headache Calcium Carbonate (Calcium Carbonate 750 Mg Tab.Chew) 750 mg PO Q4H PRN PRN Reason: Heartburn Carvedilol (Carvedilol 25 Mg Tablet) 25 mg PO BID [facility]; Protocol Last Admin: 05/28/24 11:42 Dose: 25 mg Ceftriaxone Sodium (Ceftriaxone Sodium 1 Gm Vial) 1 gm IVPUSH Q24H [facility] Dextrose (Dextrose 50 % 25 Gm/50 Ml Syringe) 25 gm IVPUSH Q15M PRN; Protocol PRN Reason: per Hypoglycemia Standing Ord. Diphenhydramine HCl (Diphenhydramine Hcl 25 Mg Capsule) 25 mg PO BID PRN PRN Reason: itchiness Docusate Sodium (Docusate Sodium 100 Mg Capsule) 100 mg PO DAILY PRN PRN Reason: Constipation Glucose (Glucose Gel 15 Gm Gel..Gram.) 15 gm PO Q15M PRN; Protocol PRN Reason: per Hypoglycemia Standing Ord. Heparin Sodium (Porcine) (Heparin Sodium,Porcine 5,000 Unit/Ml Vial) 5,000 unit SUBCUT Q12H [facility] Last Admin: 05/28/24 15:23 Dose: 5,000 unit Azithromycin 500 mg/ Sodium (Chloride) 250 mls @ 125 mls/hr IV Q24H [facility] Insulin Human Lispro (Insulin Lispro 100 Unit/Ml 3 Ml Vial) 0 unit SUBCUT QIDACHS [facility]; Protocol Last Admin: 05/28/24 15:40 Dose: Not Given Isosorbide Mononitrate (Isosorbide Mononitrate 30 Mg Tab.Er.24h) 30 mg PO DAILY [facility]; Protocol Last Admin: 05/28/24 11:42 Dose: 30 mg Lidocaine HCl (Lidocaine Hcl 1 % Mpf 2 Ml Vial) 0.5 ml SUBCUT MOWEFR@1646 [facility] Last Admin: 05/28/24 19:00 Dose: Not Given Magnesium Hydroxide (Milk Of Magnesia 30 Ml Oral.Susp) 30 ml PO DAILY PRN PRN Reason: Constipation Magnesium Oxide (Magnesium Oxide 400 Mg Tablet) 400 mg PO BID [facility] Last Admin: 05/28/24 11:42 Dose: 400 mg Melatonin (Melatonin 3 Mg Tablet) 6 mg PO BEDTIME PRN PRN Reason: Insomnia Multivitamins/Vitamin C (Multivitamin Tablet) 1 tab PO DAILY [facility] Last Admin: 05/28/24 11:42 Dose: 1 tab Non-Formulary Medication (Tacrolimus) 8 mg PO DAILY [facility] Omeprazole (Omeprazole 20 Mg Capsule.Dr) 20 mg PO DAILY@629 [facility] Ondansetron HCl (Ondansetron Hcl 4 Mg/2 Ml Vial) 4 mg IVPUSH Q8H PRN PRN Reason: Nausea and Vomiting Polyethylene Glycol (Polyethylene Glycol 3350 17 Gm Powd.Pack) 17 gm PO DAILY PRN PRN Reason: Constipation Prednisone (Prednisone 2.5 Mg Tablet) 7.5 mg PO DAILY [facility] Last Admin: 05/28/24 15:39 Dose: Not Given Sertraline HCl (Sertraline Hcl 25 Mg Tablet) 25 mg PO DAILY [facility] Last Admin: 05/28/24 11:42 Dose: 25 mg Sodium Bicarbonate (Sodium Bicarbonate 650 Mg Tablet) 1,300 mg PO BID [facility] Last Admin: 05/28/24 11:41 Dose: 1,300 mg Sodium Chloride (0.9 % Sodium Chloride Flush 3 Ml Syringe) 3 ml IVFLUSH QSHIFT [facility] Last Admin: 05/28/24 15:27 Dose: 3 ml Sucralfate (Sucralfate 1 Gm Tablet) 1 gm PO QIDACHS [facility] Last Admin: 05/28/24 15:40 Dose: Not Given Home Medications ?Medication ?Instructions ?Recorded ?Confirmed ?Last Taken ?Type acetaminophen 325 mg tablet 650 mg PO Q6H PRN Fever 04/07/24 05/28/24 Unknown History carvedilol 25 mg tablet 25 mg PO BID 04/07/24 05/28/24 Unknown History diphenhydramine HCl 25 mg tablet 25 mg PO BID PRN itchiness 04/07/24 05/28/24 Unknown History docusate sodium 100 mg capsule 100 mg PO BID PRN Constipation 04/07/24 05/28/24 Unknown History hydromorphone 4 mg tablet 4 mg PO Q4H PRN moderate to severe 04/07/24 05/28/24 Unknown History pain insulin lispro 200 unit/mL (3 mL) 2 - 10 sliding scale dose subcut 04/07/24 05/28/24 Unknown History subcutaneous pen TID isosorbide mononitrate 30 mg 30 mg PO DAILY 04/07/24 05/28/24 Unknown History tablet,extended release 24 hr pantoprazole 40 mg tablet,delayed 40 mg PO DAILY@0630 04/07/24 05/28/24 Unknown History release prednisone 2.5 mg tablet 7.5 mg PO DAILY 04/07/24 05/28/24 Unknown History sertraline 25 mg tablet 25 mg PO DAILY 04/07/24 05/28/24 Unknown History sodium bicarbonate 650 mg tablet 1,300 mg PO BID 04/07/24 05/28/24 Unknown History sucralfate 1 gram tablet 1 g PO QIDACHS 04/07/24 05/28/24 Unknown History epoetin natali 40,000 unit/mL 40,000 unit IV MO 05/28/24 Unknown History injection solution (Procrit) magnesium oxide 400 mg PO BID 05/28/24 05/28/24 Unknown History multivitamin 1 tab PO DAILY 05/28/24 05/28/24 Unknown History tacrolimus 4 mg tablet,extended 8 mg PO DAILY@0730 05/28/24 05/28/24 Unknown History release 24 hr Physical Exam Vital Signs: Last Vital Signs Temp 98.5 F 05/28/24 14:39 Pulse 70 05/28/24 14:39 Resp 20 05/28/24 14:39 BP 115/70 05/28/24 14:39 Pulse Ox 100 05/28/24 14:39 O2 Del Method Room Air 05/28/24 14:39 BMI result Body Mass Index 17.5 Const General: no acute distress Orientation/consciousness: patient oriented x3 Eyes EOM: EOMs intact bilaterally Neck Neck: Yes supple Resp Auscultation: diminished lung sounds Cardio Rate: regular rate GI Palpation (GI): Soft to palpation Neuro General: patient oriented x3 and moves all extremities Results Lab Results 05/28/24 06:50 05/28/24 06:50 Lab results: Chemistry 05/27/24 05/27/24 05/28/24 20:14 23:34 03:02 Sodium 134 L 135 Potassium 6.9 H* D 6.1 H* 6.1 H* Carbon Dioxide 24 23 BUN 53 H 50 H Creatinine 3.00 H 3.04 H Calcium 9.6 D 9.4 Phosphorus 2.0 L 05/28/24 06:50 Sodium 136 Potassium 5.9 H Carbon Dioxide 23 BUN 53 H Creatinine 3.13 H Calcium 9.6 Phosphorus Hematology 05/27/24 05/28/24 20:14 06:50 WBC 19.4 H 17.1 H Hgb 8.4 L 7.7 L Plt Count 321 320 Assessment and Plan (1) ESRD (end stage renal disease) on dialysis: Status: Acute Plan Usually gets HD on MWF Hyperkalemic; Shall dialyze today Has a functioning AVF Low Na/K diet with fluid restriction Procrit 83857 MWF to keep Hb ~ 10 Continue rest of current management for now Procedures Date of Service Date of Service: 05/28/24
[2024-05-28] MEDS: Azithromycin 500 MG in 0.9 % Sodium Chloride 250 ML 125 MG IV (21:06)
[2024-05-28] MEDS: cefTRIAXone sodium 1 GM VIAL IVPUSH (21:06)
[2024-05-28] MEDS: Melatonin 3 MG TABLET 6 MG PO (21:07)
[2024-05-28 22:16] LABS: Glucose, Whole Blood 128 mg/dL (60-115)
[2024-05-29] VITALS (9 sets, daily range): BP systolic 106–143; BP diastolic 54–68; PULSE 63–99; RESP 16–18; TEMP 36.6–37.3; O2SAT 97–100
[2024-05-29] MEDS: Heparin Sodium,Porcine 5,000 UNIT/ML VIAL 5000 UNIT SUBCUT ×2 (01:33→14:44)
[2024-05-29] MEDS: Omeprazole 20 MG CAPSULE.DR PO (06:32)
[2024-05-29 07:20] LABS: Glucose, Whole Blood 104 mg/dL (60-115)
[2024-05-29] MEDS: TACROLIMUS 1 MG 8 EACH PO (07:50)
[2024-05-29] MEDS: carvediloL 25 MG TABLET PO ×2 (07:51→21:00)
[2024-05-29] MEDS: Magnesium Oxide 400 MG TABLET PO ×2 (07:51→21:00)
[2024-05-29] MEDS: Isosorbide Mononitrate 30 MG TAB.ER.24H PO (07:51)
[2024-05-29] MEDS: Sertraline HCL 25 MG TABLET PO (07:51)
[2024-05-29] MEDS: Sodium Bicarbonate 650 MG TABLET 1300 MG PO ×2 (07:51→21:00)
[2024-05-29] MEDS: Multivitamin TABLET 1 TAB PO (07:51)
[2024-05-29] MEDS: Sucralfate 1 GM TABLET PO ×4 (07:51→20:59)
[2024-05-29] MEDS: predniSONE 2.5 MG TABLET 7.5 MG PO (07:51)
[2024-05-29] MEDS: 0.9 % Sodium Chloride Flush 3 ML SYRINGE IVFLUSH ×3 (07:52→21:01)
[2024-05-29] MEDS: Acetaminophen 325 MG TABLET 650 MG PO (07:52)
[2024-05-29 08:11] LABS: Mean Corpuscular HGB Conc 29.6 g/dl (31.0-35.0); Mean Corpuscular Hemoglobin 27.4 pg (27.0-33.0); Mean Corpuscular Volume 92.7 fL (80.0-98.0); Mean Platelet Volume 9.7 fL (9.4-12.3); Platelet Count 276 X10*3/uL (160-400); Red Blood Count 2.48 X10*6/uL (4.20-5.50); Red Cell Distribution Width 17.4 % (11.0-16.0); White Blood Count 14.5 X10*3/uL (4.8-10.8)
[2024-05-29 08:25] LABS: Blood Urea Nitrogen 22 mg/dL (9-16); Calcium 8.8 mg/dL (8.4-10.2); Creatinine Clr Calc Pharmacy 27.6; Estimated Glomerular Filt Rate 33; Glucose Random 107 mg/dL (60-115)
[2024-05-29 08:28] LABS: Hemoglobin 6.8 g/dl (12.0-16.0)
[2024-05-29 08:36] LABS: Anion Gap 13 (12-20); Carbon Dioxide 29 mmol/L (22-29); Chloride 103 mmol/L (96-108); Potassium 4.7 mmol/L (3.3-5.1); Sodium 140 mmol/L (135-145)
[2024-05-29 09:01] LABS: Folate 12.6 ng/mL (> or = 4.0); Vitamin B12 424 pg/mL (200-900)
--- NOTE | 2024-05-29 11:17 | HO.PM.IMPN ---
Subjective Subjective Date of Service: 05/29/24 Interval History: coughing improved not hypoxic tolerated HD yesterday Hb 6.8 Review of Systems Review of Systems: Yes all other systems are reviewed and are negative Physical Exam Vital Signs: Vital Signs: Last Vital Signs Temp 98.8 F 05/29/24 10:43 Pulse 66 05/29/24 10:43 Resp 16 05/29/24 10:43 BP 114/57 L 05/29/24 10:43 Pulse Ox 97 05/29/24 07:18 O2 Del Method Room Air 05/29/24 07:18 BMI result Body Mass Index 17.5 Gen: in no acute distress, malnourished HEENT: sclera anicteric, moist mucus membranes Neck: supple Lungs: clear to auscultation bilaterally Heart: regular rate and rhythm, no murmurs Abd: soft, non-tender, non-distended, very thin Ext: no edema Skin: warm/well-perfused Neuro: alert and oriented x3, no focal findings Psych: appropriate affect Objective Data Active Medications Acetaminophen (Acetaminophen 325 Mg Tablet) 650 mg PO Q6H PRN PRN Reason: Pain, Mild 1-3,fever,headache Last Admin: 05/29/24 07:52 Dose: 650 mg Documented By: RAMON Calcium Carbonate (Calcium Carbonate 750 Mg Tab.Chew) 750 mg PO Q4H PRN PRN Reason: Heartburn Carvedilol (Carvedilol 25 Mg Tablet) 25 mg PO BID [facility]; Protocol Last Admin: 05/29/24 07:51 Dose: 25 mg Documented By: RAMON Ceftriaxone Sodium (Ceftriaxone Sodium 1 Gm Vial) 1 gm IVPUSH Q24H [facility] Last Admin: 05/28/24 21:06 Dose: 1 gm Documented By: JOANNA Dextrose (Dextrose 50 % 25 Gm/50 Ml Syringe) 25 gm IVPUSH Q15M PRN; Protocol PRN Reason: per Hypoglycemia Standing Ord. Diphenhydramine HCl (Diphenhydramine Hcl 25 Mg Capsule) 25 mg PO BID PRN PRN Reason: itchiness Docusate Sodium (Docusate Sodium 100 Mg Capsule) 100 mg PO DAILY PRN PRN Reason: Constipation Epoetin Bassem-epbx (Epoetin Bassem-Epbx 20,000 Unit/Ml Vial) 20,000 unit SUBCUT [facility] Glucose (Glucose Gel 15 Gm Gel..Gram.) 15 gm PO Q15M PRN; Protocol PRN Reason: per Hypoglycemia Standing Ord. Heparin Sodium (Porcine) (Heparin Sodium,Porcine 5,000 Unit/Ml Vial) 5,000 unit SUBCUT Q12H [facility] Last Admin: 05/29/24 01:33 Dose: 5,000 unit Documented By: JOANNA Azithromycin 500 mg/ Sodium (Chloride) 250 mls @ 125 mls/hr IV Q24H [facility] Last Infusion: 05/28/24 23:12 Dose: Infused Documented By: JOANNA Insulin Human Lispro (Insulin Lispro 100 Unit/Ml 3 Ml Vial) 0 unit SUBCUT QIDACHS [facility]; Protocol Last Admin: 05/29/24 07:34 Dose: Not Given Documented By: RAMON Non-Admin Reason: No Insulin Coverage Isosorbide Mononitrate (Isosorbide Mononitrate 30 Mg Tab.Er.24h) 30 mg PO DAILY [facility]; Protocol Last Admin: 05/29/24 07:51 Dose: 30 mg Documented By: RAMON Lidocaine HCl (Lidocaine Hcl 1 % Mpf 2 Ml Vial) 0.5 ml SUBCUT MOWEFR@1645 [facility] Last Admin: 05/28/24 19:00 Dose: Not Given Documented By: MAXI Non-Admin Reason: given in HD Magnesium Hydroxide (Milk Of Magnesia 30 Ml Oral.Susp) 30 ml PO DAILY PRN PRN Reason: Constipation Magnesium Oxide (Magnesium Oxide 400 Mg Tablet) 400 mg PO BID [facility] Last Admin: 05/29/24 07:51 Dose: 400 mg Documented By: RAMON Melatonin (Melatonin 3 Mg Tablet) 6 mg PO BEDTIME PRN PRN Reason: Insomnia Last Admin: 05/28/24 21:07 Dose: 6 mg Documented By: JOANNA Multivitamins/Vitamin C (Multivitamin Tablet) 1 tab PO DAILY [facility] Last Admin: 05/29/24 07:51 Dose: 1 tab Documented By: RAMON Non-Formulary Medication ( Tacrolimus 1 Mg Tablet Extended Release 24 Hr) 8 mg PO DAILY [facility] Last Admin: 05/29/24 07:50 Dose: 8 mg Documented By: RAMON Omeprazole (Omeprazole 20 Mg Capsule.) 20 mg PO DAILY@0630 [facility] Last Admin: 05/29/24 06:32 Dose: 20 mg Documented By: JOANNA Ondansetron HCl (Ondansetron Hcl 4 Mg/2 Ml Vial) 4 mg IVPUSH Q8H PRN PRN Reason: Nausea and Vomiting Polyethylene Glycol (Polyethylene Glycol 3350 17 Gm Powd.Pack) 17 gm PO DAILY PRN PRN Reason: Constipation Prednisone (Prednisone 2.5 Mg Tablet) 7.5 mg PO DAILY [facility] Last Admin: 05/29/24 07:51 Dose: 7.5 mg Documented By: RAMON Sertraline HCl (Sertraline Hcl 25 Mg Tablet) 25 mg PO DAILY [facility] Last Admin: 05/29/24 07:51 Dose: 25 mg Documented By: RAMON Sodium Bicarbonate (Sodium Bicarbonate 650 Mg Tablet) 1,300 mg PO BID [facility] Last Admin: 05/29/24 07:51 Dose: 1,300 mg Documented By: RAMON Sodium Chloride (0.9 % Sodium Chloride Flush 3 Ml Syringe) 3 ml IVFLUSH QSHIFT [facility] Last Admin: 05/29/24 07:52 Dose: 3 ml Documented By: RAMON Sucralfate (Sucralfate 1 Gm Tablet) 1 gm PO QIDACHS [facility] Last Admin: 05/29/24 07:51 Dose: 1 gm Documented By: RAMON Labs 05/29/24 07:55 05/29/24 07:55 Labs: Laboratory Results - last 24 hr 05/28/24 05/28/24 05/29/24 15:28 21:08 07:06 MCV MCH MCHC RDW Plt Count MPV Absolute Nucleated RBC Nucleated RBC % (auto) Anion Gap Estim Creat Clear Calc Estimated GFR POC Glucose 93 128 H 104 Random Glucose Calcium Vitamin B12 Folate Blood Type Antibody Screen Crossmatch 05/29/24 05/29/24 07:55 09:06 MCV 92.7 MCH 27.4 MCHC 29.6 L RDW 17.4 H Plt Count 276 MPV 9.7 Absolute Nucleated RBC 0.000 Nucleated RBC % (auto) 0.0 Anion Gap 13 Estim Creat Clear Calc 27.6 Estimated GFR 33 POC Glucose Random Glucose 107 Calcium 8.8 D Vitamin B12 424 Folate 12.6 Blood Type A Positive Antibody Screen NEGATIVE Crossmatch See Detail Microbiology Microbiology Results: Microbiology 05/27/24 21:48 Blood Culture - Preliminary Blood - Venous No growth after 24 hours. 05/27/24 21:44 Blood Culture - Preliminary Blood - Venous No growth after 24 hours. Assessment and Plan (1) Pneumonia, community acquired: Status: Acute Plan d2 for 64yo F with ESRD on HD MWF with failed transplant, HTN, HLD, HFrEF, DM2, GERD, esophagitis presenting with weakness, missed HD on 05/26, found to be febrile due to PNA CA-PNA - continue ceftriaxone and azithromycin 05/28-; trend PCT; follow BCx; SCOREKEEPER evaluation- OK for NDD3 solids/thin liquids anemia of ESRD - will transfuse 1u pRBCs today; FOBT; [place] epo 89688 units today and MWF hyperK - resolved after HD 05/28 ESRD on HD - HD 05/28 renal transplant - continue prednisone + tacrolimus chronic HFrEF - continue Imdur, carvedilol - volume management by dialysis GERD esophagitis - PPI, sucralfate DM2 - [place]-dose lispro mood disorder - sertraline severe malnutrition - supplements dispo - PT eval VTE ppx - UFH In my clinical judgment, the patient requires continued inpatient hospitalization for the following reasons: IV ABX, transfusion Total time managing care of this patient today: 45 minutes. Quality Stroke Does the patient have a stroke diagnosis?: No VTE Prior VTE?: No VTE Risk Level:: Medical - moderate - high VTE Device Contraindication: N/A - Device Ordered VTE Drug Contraindication: N/A - Med Ordered
[2024-05-29 11:29] LABS: Glucose, Whole Blood 243 mg/dL (60-115)
[2024-05-29] MEDS: Insulin Lispro 100 UNIT/ML 3 ML VIAL SUBCUT ×3 (11:43→22:54)
[2024-05-29 16:24] LABS: Glucose, Whole Blood 312 mg/dL (60-115)
[2024-05-29 18:17] LABS: OBS Int Ctl Valid YES; OBS1 NEGATIVE (NEGATIVE)
[2024-05-29] MEDS: Azithromycin 500 MG in 0.9 % Sodium Chloride 250 ML 125 MG IV (21:00)
[2024-05-29] MEDS: Melatonin 3 MG TABLET 6 MG PO (21:00)
[2024-05-29] MEDS: cefTRIAXone sodium 1 GM VIAL IVPUSH (21:00)
[2024-05-29 21:36] LABS: Glucose, Whole Blood 353 mg/dL (60-115)
[2024-05-30] VITALS (7 sets, daily range): BP systolic 131–169; BP diastolic 65–79; PULSE 65–86; RESP 18; TEMP 36.4–37; O2SAT 97–100
[2024-05-30] MEDS: Heparin Sodium,Porcine 5,000 UNIT/ML VIAL 5000 UNIT SUBCUT ×2 (01:44→14:01)
[2024-05-30] MEDS: Omeprazole 20 MG CAPSULE.DR PO (05:14)
[2024-05-30] MEDS: HYDROmorphone HCl 0.5 MG/0.5 ML SYRINGE IVPUSH (05:14)
[2024-05-30 07:12] LABS: Glucose, Whole Blood 94 mg/dL (60-115)
[2024-05-30 07:45] LABS: Hematocrit 26.5 % (37.0-47.0); Hemoglobin 8.2 g/dl (12.0-16.0); Mean Corpuscular HGB Conc 30.9 g/dl (31.0-35.0); Mean Corpuscular Hemoglobin 28.3 pg (27.0-33.0); Mean Corpuscular Volume 91.4 fL (80.0-98.0); Mean Platelet Volume 9.5 fL (9.4-12.3); Platelet Count 297 X10*3/uL (160-400); Red Cell Distribution Width 16.7 % (11.0-16.0); White Blood Count 13.3 X10*3/uL (4.8-10.8)
[2024-05-30 08:13] LABS: Blood Urea Nitrogen 33 mg/dL (9-16); Calcium 8.6 mg/dL (8.4-10.2); Glucose Random 88 mg/dL (60-115)
[2024-05-30 08:34] LABS: Anion Gap 14 (12-20); Carbon Dioxide 25 mmol/L (22-29); Chloride 103 mmol/L (96-108); Creatinine Clr Calc Pharmacy 17.3; Estimated Glomerular Filt Rate 19; Potassium 3.4 mmol/L (3.3-5.1); Sodium 139 mmol/L (135-145)
[2024-05-30] MEDS: TACROLIMUS 1 MG 8 EACH PO (09:39)
[2024-05-30] MEDS: carvediloL 25 MG TABLET PO ×2 (09:40→21:36)
[2024-05-30] MEDS: Sucralfate 1 GM TABLET PO ×4 (09:40→21:36)
[2024-05-30] MEDS: Sertraline HCL 25 MG TABLET PO (09:40)
[2024-05-30] MEDS: predniSONE 2.5 MG TABLET 7.5 MG PO (09:40)
[2024-05-30] MEDS: Isosorbide Mononitrate 30 MG TAB.ER.24H PO (09:40)
[2024-05-30] MEDS: Magnesium Oxide 400 MG TABLET PO ×2 (09:40→21:35)
[2024-05-30] MEDS: Multivitamin TABLET 1 TAB PO (09:40)
[2024-05-30] MEDS: Acetaminophen 325 MG TABLET 650 MG PO ×2 (09:40→17:04)
[2024-05-30] MEDS: Sodium Bicarbonate 650 MG TABLET 1300 MG PO ×2 (09:40→21:36)
[2024-05-30] MEDS: 0.9 % Sodium Chloride Flush 3 ML SYRINGE IVFLUSH ×3 (09:41→21:38)
[2024-05-30 10:54] LABS: Glucose, Whole Blood 182 mg/dL (60-115)
[2024-05-30] MEDS: Insulin Lispro 100 UNIT/ML 3 ML VIAL SUBCUT ×3 (11:48→21:38)
--- NOTE | 2024-05-30 13:00 | P.CNNE_ITS ---
History of Present Illness Data of Consult Service Date: 05/30/24 Primary Care Provider: Marita Wetzel DO HPI Reason for consult: Encephalopathy 64 year old with history of ESRD on HD MWF, hypertension, hyperlipidemia, HFrEF, T2DM, GERD with esophagitis, presents to the ER from home via EMS with multiple complains including feeling generally unwell with headaches, shortness of breath and mild abdominal pain. To my questioning, she said that she fell at a store losing balance. She denied passing out. 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) Kidney transplant status History of appendectomy H/O cardiac catheterization Social History Social History Household Members: Spouse Housing: House Do you presently have visiting nurse or other home services: Yes Alcohol intake: never Comment: patient is bedbound at this time Patient Tobacco Use Status: Never used Tobacco service: Yes Meds Allergies Allergy/AdvReac Type Severity Reaction Status Date / Time codeine [CODEINE] Allergy Intermediate Hives and Verified 05/27/24 17:47 pruritus oxycodone [OXYCODONE] Allergy Intermediate HIVES Verified 05/27/24 17:47 Active Medications: Current Medications Acetaminophen (Acetaminophen 325 Mg Tablet) 650 mg PO Q6H PRN PRN Reason: Pain, Mild 1-3,fever,headache Last Admin: 05/30/24 09:40 Dose: 650 mg Aspirin (Aspirin 81 Mg Tab.Chew) 81 mg PO DAILY [facility] Atorvastatin Calcium (Atorvastatin Calcium 40 Mg Tablet) 40 mg PO DAILY [facility] Calcium Carbonate (Calcium Carbonate 750 Mg Tab.Chew) 750 mg PO Q4H PRN PRN Reason: Heartburn Carvedilol (Carvedilol 25 Mg Tablet) 25 mg PO BID [facility]; Protocol Last Admin: 05/30/24 09:40 Dose: 25 mg Ceftriaxone Sodium (Ceftriaxone Sodium 1 Gm Vial) 1 gm IVPUSH Q24H [facility] Last Admin: 05/29/24 21:00 Dose: 1 gm Dextrose (Dextrose 50 % 25 Gm/50 Ml Syringe) 25 gm IVPUSH Q15M PRN; Protocol PRN Reason: per Hypoglycemia Standing Ord. Diphenhydramine HCl (Diphenhydramine Hcl 25 Mg Capsule) 25 mg PO BID PRN PRN Reason: itchiness Docusate Sodium (Docusate Sodium 100 Mg Capsule) 100 mg PO DAILY PRN PRN Reason: Constipation Epoetin Natali-epbx (Epoetin Natali-Epbx 20,000 Unit/Ml Vial) 20,000 unit SUBCUT MOWEFR [facility] Glucose (Glucose Gel 15 Gm Gel..Gram.) 15 gm PO Q15M PRN; Protocol PRN Reason: per Hypoglycemia Standing Ord. Heparin Sodium (Porcine) (Heparin Sodium,Porcine 5,000 Unit/Ml Vial) 5,000 unit SUBCUT Q12H [facility] Last Admin: 05/30/24 01:44 Dose: 5,000 unit Azithromycin 500 mg/ Sodium (Chloride) 250 mls @ 125 mls/hr IV Q24H [facility] Last Infusion: 05/29/24 23:13 Dose: Infused Insulin Human Lispro (Insulin Lispro 100 Unit/Ml 3 Ml Vial) 0 unit SUBCUT QIDACHS [facility]; Protocol Last Admin: 05/30/24 11:48 Dose: 2 unit Isosorbide Mononitrate (Isosorbide Mononitrate 30 Mg Tab.Er.24h) 30 mg PO DAILY [facility]; Protocol Last Admin: 05/30/24 09:40 Dose: 30 mg Lidocaine HCl (Lidocaine Hcl 1 % Mpf 2 Ml Vial) 0.5 ml SUBCUT MOWEFR@1645 [facility] Last Admin: 05/28/24 19:00 Dose: Not Given Loperamide HCl (Loperamide Hcl 2 Mg Capsule) 2 mg PO Q4H PRN PRN Reason: diarrhea Magnesium Hydroxide (Milk Of Magnesia 30 Ml Oral.Susp) 30 ml PO DAILY PRN PRN Reason: Constipation Magnesium Oxide (Magnesium Oxide 400 Mg Tablet) 400 mg PO BID [facility] Last Admin: 05/30/24 09:40 Dose: 400 mg Melatonin (Melatonin 3 Mg Tablet) 6 mg PO BEDTIME PRN PRN Reason: Insomnia Last Admin: 05/29/24 21:00 Dose: 6 mg Multivitamins/Vitamin C (Multivitamin Tablet) 1 tab PO DAILY [facility] Last Admin: 05/30/24 09:40 Dose: 1 tab Non-Formulary Medication ( Tacrolimus 1 Mg Tablet Extended Release 24 Hr) 8 mg PO DAILY [facility] Last Admin: 05/30/24 09:39 Dose: 8 mg Omeprazole (Omeprazole 20 Mg Capsule.Dr) 20 mg PO DAILY@0630 [facility] Last Admin: 05/30/24 05:14 Dose: 20 mg Ondansetron HCl (Ondansetron Hcl 4 Mg/2 Ml Vial) 4 mg IVPUSH Q8H PRN PRN Reason: Nausea and Vomiting Polyethylene Glycol (Polyethylene Glycol 3350 17 Gm Powd.Pack) 17 gm PO DAILY PRN PRN Reason: Constipation Prednisone (Prednisone 2.5 Mg Tablet) 7.5 mg PO DAILY [facility] Last Admin: 05/30/24 09:40 Dose: 7.5 mg Sertraline HCl (Sertraline Hcl 25 Mg Tablet) 25 mg PO DAILY [facility] Last Admin: 05/30/24 09:40 Dose: 25 mg Sodium Bicarbonate (Sodium Bicarbonate 650 Mg Tablet) 1,300 mg PO BID [facility] Last Admin: 05/30/24 09:40 Dose: 1,300 mg Sodium Chloride (0.9 % Sodium Chloride Flush 3 Ml Syringe) 3 ml IVFLUSH QSHIFT [facility] Last Admin: 05/30/24 09:41 Dose: 3 ml Sucralfate (Sucralfate 1 Gm Tablet) 1 gm PO QIDACHS [facility] Last Admin: 05/30/24 11:48 Dose: 1 gm Home Medications ?Medication ?Instructions ?Recorded ?Confirmed ?Last Taken ?Type acetaminophen 325 mg tablet 650 mg PO Q6H PRN Fever 04/07/24 05/28/24 Unknown History carvedilol 25 mg tablet 25 mg PO BID 04/07/24 05/28/24 Unknown History diphenhydramine HCl 25 mg tablet 25 mg PO BID PRN itchiness 04/07/24 05/28/24 Unknown History docusate sodium 100 mg capsule 100 mg PO BID PRN Constipation 04/07/24 05/28/24 Unknown History hydromorphone 4 mg tablet 4 mg PO Q4H PRN moderate to severe 04/07/24 05/28/24 Unknown History pain insulin lispro 200 unit/mL (3 mL) 2 - 10 sliding scale dose subcut 04/07/24 05/28/24 Unknown History subcutaneous pen TID isosorbide mononitrate 30 mg 30 mg PO DAILY 04/07/24 05/28/24 Unknown History tablet,extended release 24 hr pantoprazole 40 mg tablet,delayed 40 mg PO DAILY@0630 04/07/24 05/28/24 Unknown History release prednisone 2.5 mg tablet 7.5 mg PO DAILY 04/07/24 05/28/24 Unknown History sertraline 25 mg tablet 25 mg PO DAILY 04/07/24 05/28/24 Unknown History sodium bicarbonate 650 mg tablet 1,300 mg PO BID 04/07/24 05/28/24 Unknown History sucralfate 1 gram tablet 1 g PO QIDACHS 04/07/24 05/28/24 Unknown History epoetin natali 40,000 unit/mL 40,000 unit IV MO 05/28/24 Unknown History injection solution (Procrit) magnesium oxide 400 mg PO BID 05/28/24 05/28/24 Unknown History multivitamin 1 tab PO DAILY 05/28/24 05/28/24 Unknown History tacrolimus 4 mg tablet,extended 8 mg PO DAILY@0730 05/28/24 05/28/24 Unknown History release 24 hr Physical Exam 2 Vital Signs: Vital Signs: Last Vital Signs Temp 97.9 F 05/30/24 11:11 Pulse 67 05/30/24 11:11 Resp 18 05/30/24 11:11 BP 140/67 H 05/30/24 11:11 Pulse Ox 97 05/30/24 11:11 O2 Del Method Room Air 05/30/24 11:11 BMI result Body Mass Index 17.5 Neuro: Other: She is alert and awake with normal spontaneity of speech fluency comprehension and affect. Face is symmetrical. Visual aguilar seemed intact. There is diffuse muscle atrophy specially in legs with areflexia and flexor plantars. No fasciculations are seen. Results Labs 05/30/24 07:24 05/30/24 07:24 Labs: Short CBC 05/30/24 Range/Units 07:24 WBC 13.3 H (4.8-10.8) X10*3/uL Hgb 8.2 L D (12.0-16.0) g/dl Hct 26.5 L (37.0-47.0) % Plt Count 297 (160-400) X10*3/uL BMP 05/30/24 07:24 Sodium 139 Potassium 3.4 D Chloride 103 Carbon Dioxide 25 BUN 33 H Creatinine 2.53 H Calcium 8.[address] revealed a mixed density right thalamic lesion. MRI of brain revealed a large right thalamic area expensive lesion with some areas of restricted diffusion on DWI. A smaller area of restricted diffusion was noted in right parieto-occipital area with corresponding but larger lesion on FLAIR. Another similar lesion was noted on left side without restricted diffusion Microbiology Microbiology Results: Microbiology 05/27/24 21:48 Blood - Venous Blood Culture - Preliminary No growth after 48 hours. 05/27/24 21:44 Blood - Venous Blood Culture - Preliminary No growth after 48 hours. 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 Ischemic strokes is a possibility but these lesions suggest possibility of malignancy. I have asked Radiology to do contrast MRI. If MRI would suggest malignancy, steroids such as Decadron can be considered. If it would suggest ischemic lesions, steroid would not help. Treatment in either case would be conservative and supportive. Procedures Date of Service Date of Service: 05/30/24
--- NOTE | 2024-05-30 13:25 | HO.PM.IMPN ---
Subjective Subjective Date of Service: 05/30/24 Interval History: Pt states she has had LUE/LLE weakness since just after dialysis Friday around 6pm. She thought it was due to dialysis and yesterday thought it was from the blood transfusion. Cough/dyspnea improved. Tolerated transfusion well otherwise. Review of Systems Review of Systems: Yes all other systems are reviewed and are negative Physical Exam Vital Signs: Vital Signs: Last Vital Signs Temp 97.9 F 05/30/24 11:11 Pulse 67 05/30/24 11:11 Resp 18 05/30/24 11:11 BP 140/67 H 05/30/24 11:11 Pulse Ox 97 05/30/24 11:11 O2 Del Method Room Air 05/30/24 11:11 BMI result Body Mass Index 17.5 Gen: in no acute distress, muscle wasting HEENT: sclera anicteric, moist mucus membranes Neck: supple Lungs: diminished Heart: regular rate and rhythm, no murmurs Abd: soft, non-tender, non-distended Ext: no edema Skin: warm/well-perfused Neuro: alert and oriented x3, LUE and LLE with 3/5 strength Psych: appropriate affect Objective Data Active Medications Acetaminophen (Acetaminophen 325 Mg Tablet) 650 mg PO Q6H PRN PRN Reason: Pain, Mild 1-3,fever,headache Last Admin: 05/30/24 09:40 Dose: 650 mg Documented By: RAMON Aspirin (Aspirin 81 Mg Tab.Chew) 81 mg PO DAILY [facility] Atorvastatin Calcium (Atorvastatin Calcium 40 Mg Tablet) 40 mg PO DAILY [facility] Calcium Carbonate (Calcium Carbonate 750 Mg Tab.Chew) 750 mg PO Q4H PRN PRN Reason: Heartburn Carvedilol (Carvedilol 25 Mg Tablet) 25 mg PO BID [facility]; Protocol Last Admin: 05/30/24 09:40 Dose: 25 mg Documented By: RAMON Ceftriaxone Sodium (Ceftriaxone Sodium 1 Gm Vial) 1 gm IVPUSH Q24H [facility] Last Admin: 05/29/24 21:00 Dose: 1 gm Documented By: DOMINIQUE Dextrose (Dextrose 50 % 25 Gm/50 Ml Syringe) 25 gm IVPUSH Q15M PRN; Protocol PRN Reason: per Hypoglycemia Standing Ord. Diphenhydramine HCl (Diphenhydramine Hcl 25 Mg Capsule) 25 mg PO BID PRN PRN Reason: itchiness Docusate Sodium (Docusate Sodium 100 Mg Capsule) 100 mg PO DAILY PRN PRN Reason: Constipation Epoetin Bassem-epbx (Epoetin Bassem-Epbx 20,000 Unit/Ml Vial) 20,000 unit SUBCUT MOWEFR [facility] Glucose (Glucose Gel 15 Gm Gel..Gram.) 15 gm PO Q15M PRN; Protocol PRN Reason: per Hypoglycemia Standing Ord. Heparin Sodium (Porcine) (Heparin Sodium,Porcine 5,000 Unit/Ml Vial) 5,000 unit SUBCUT Q12H [facility] Last Admin: 05/30/24 01:44 Dose: 5,000 unit Documented By: JOANNA Azithromycin 500 mg/ Sodium (Chloride) 250 mls @ 125 mls/hr IV Q24H [facility] Last Infusion: 05/29/24 23:13 Dose: Infused Documented By: JOANNA Insulin Human Lispro (Insulin Lispro 100 Unit/Ml 3 Ml Vial) 0 unit SUBCUT QIDACHS [facility]; Protocol Last Admin: 05/30/24 11:48 Dose: 2 unit Documented By: TRENT Isosorbide Mononitrate (Isosorbide Mononitrate 30 Mg Tab.Er.24h) 30 mg PO DAILY [facility]; Protocol Last Admin: 05/30/24 09:40 Dose: 30 mg Documented By: RAMON Lidocaine HCl (Lidocaine Hcl 1 % Mpf 2 Ml Vial) 0.5 ml SUBCUT MOWEFR@1645 [facility] Last Admin: 05/28/24 19:00 Dose: Not Given Documented By: MAXI Non-Admin Reason: given in HD Loperamide HCl (Loperamide Hcl 2 Mg Capsule) 2 mg PO Q4H PRN PRN Reason: diarrhea Magnesium Hydroxide (Milk Of Magnesia 30 Ml Oral.Susp) 30 ml PO DAILY PRN PRN Reason: Constipation Magnesium Oxide (Magnesium Oxide 400 Mg Tablet) 400 mg PO BID [facility] Last Admin: 05/30/24 09:40 Dose: 400 mg Documented By: RAMON Melatonin (Melatonin 3 Mg Tablet) 6 mg PO BEDTIME PRN PRN Reason: Insomnia Last Admin: 05/29/24 21:00 Dose: 6 mg Documented By: DOMINIQUE Multivitamins/Vitamin C (Multivitamin Tablet) 1 tab PO DAILY [facility] Last Admin: 05/30/24 09:40 Dose: 1 tab Documented By: RAMON Non-Formulary Medication ( Tacrolimus 1 Mg Tablet Extended Release 24 Hr) 8 mg PO DAILY [facility] Last Admin: 05/30/24 09:39 Dose: 8 mg Documented By: RAMON Omeprazole (Omeprazole 20 Mg Capsule.) 20 mg PO DAILY@0630 [facility] Last Admin: 05/30/24 05:14 Dose: 20 mg Documented By: JOANNA Ondansetron HCl (Ondansetron Hcl 4 Mg/2 Ml Vial) 4 mg IVPUSH Q8H PRN PRN Reason: Nausea and Vomiting Polyethylene Glycol (Polyethylene Glycol 3350 17 Gm Powd.Pack) 17 gm PO DAILY PRN PRN Reason: Constipation Prednisone (Prednisone 2.5 Mg Tablet) 7.5 mg PO DAILY [facility] Last Admin: 05/30/24 09:40 Dose: 7.5 mg Documented By: RAMON Sertraline HCl (Sertraline Hcl 25 Mg Tablet) 25 mg PO DAILY [facility] Last Admin: 05/30/24 09:40 Dose: 25 mg Documented By: RAMON Sodium Bicarbonate (Sodium Bicarbonate 650 Mg Tablet) 1,300 mg PO BID [facility] Last Admin: 05/30/24 09:40 Dose: 1,300 mg Documented By: RAMON Sodium Chloride (0.9 % Sodium Chloride Flush 3 Ml Syringe) 3 ml IVFLUSH QSHIFT [facility] Last Admin: 05/30/24 09:41 Dose: 3 ml Documented By: RAMON Sucralfate (Sucralfate 1 Gm Tablet) 1 gm PO QIDACHS [facility] Last Admin: 05/30/24 11:48 Dose: 1 gm Documented By: SOFFAA Labs 05/30/24 07:24 05/30/24 07:24 Labs: Laboratory Results - last 24 hr 05/29/24 05/29/24 05/29/24 09:06 16:19 17:20 MCV MCH MCHC RDW Plt Count MPV Absolute Nucleated RBC Nucleated RBC % (auto) Anion Gap Estim Creat Clear Calc Estimated GFR POC Glucose 312 H Random Glucose Calcium Procalcitonin Stool Occult Blood NEGATIVE Crossmatch See Detail 05/29/24 05/30/24 05/30/24 21:33 07:05 07:24 MCV 91.4 MCH 28.3 MCHC 30.9 L RDW 16.7 H Plt Count 297 MPV 9.5 Absolute Nucleated RBC 0.000 Nucleated RBC % (auto) 0.0 Anion Gap 14 Estim Creat Clear Calc 17.3 Estimated GFR 19 POC Glucose 353 H* 94 Random Glucose 88 Calcium 8.6 Procalcitonin 1.00 Stool Occult Blood Crossmatch 05/30/24 10:46 MCV MCH MCHC RDW Plt Count MPV Absolute Nucleated RBC Nucleated RBC % (auto) Anion Gap Estim Creat Clear Calc Estimated GFR POC Glucose 182 H Random Glucose Calcium Procalcitonin Stool Occult Blood Crossmatch CT head (05/30) Subtle low-attenuation changes in the right thalamus and thalamus capsular junction concerning for possible acute ischemia. Nonspecific subcortical edema or gliosis in the posterior left parietal lobe. Further correlation of the above findings with MRI suggested. No acute hemorrhage, mass effect or extra-axial collection. Microbiology Microbiology Results: Microbiology 05/27/24 21:48 Blood Culture - Preliminary Blood - Venous No growth after 48 hours. 05/27/24 21:44 Blood Culture - Preliminary Blood - Venous No growth after 48 hours. Assessment and Plan (1) Pneumonia, community acquired: Status: Acute Plan d3 for 64yo F with ESRD on HD MWF with failed transplant, HTN, HLD, HFrEF, DM2, GERD, esophagitis presenting with weakness, missed HD on 05/26, found to be febrile due to PNA developed LUE/LLE weakness concerning for thalamic stroke vs. mass thalamic and parietal stroke vs. mass - Neuro consulted, recommends MRI +/- contrast to assess for possibility of malignancy - in meanwhile, giving ASA/atorvastatin and will obtain carotid Doppler US and TTE - PT/OT consults CA-PNA - continue ceftriaxone and azithromycin 05/28-; PCT decreasing; BCx negative; [employer] evaluation- OK for NDD3 solids/thin liquids anemia of ESRD - improved after transfused 1u pRBCs 05/29; FOBT negative; gave epo 71121 units 05/29 and continue MWF hyperK - resolved after HD 05/28 ESRD on HD - HD 05/28 and continue MWF renal transplant - continue prednisone + tacrolimus chronic HFrEF - continue Imdur, carvedilol - volume management by dialysis GERD esophagitis - PPI, sucralfate DM2 - [place]-dose lispro mood disorder - sertraline severe malnutrition - supplements dispo - PT/OT eval pending VTE ppx - UFH In my clinical judgment, the patient requires continued inpatient hospitalization for the following reasons: CVA/brain mass workup, IV ABX Total time managing care of this patient today: 55 minutes. Quality Stroke Does the patient have a stroke diagnosis?: No VTE Prior VTE?: No VTE Risk Level:: Medical - moderate - high VTE Device Contraindication: N/A - Device Ordered VTE Drug Contraindication: N/A - Med Ordered
[2024-05-30] MEDS: gadobutroL 7.5 ML VIAL IVPUSH (13:34)
[2024-05-30] MEDS: Aspirin 81 MG TAB.CHEW PO (14:01)
[2024-05-30] MEDS: Atorvastatin Calcium 40 MG TABLET PO (14:01)
[2024-05-30 16:28] LABS: Glucose, Whole Blood 198 mg/dL (60-115)
[2024-05-30] MEDS: dexAMETHasone sod phosphate 10 MG/ML VIAL IVPUSH (16:58)
[2024-05-30 20:29] LABS: Glucose, Whole Blood 239 mg/dL (60-115)
[2024-05-30] MEDS: cefTRIAXone sodium 1 GM VIAL IVPUSH (21:37)
[2024-05-30] MEDS: dexAMETHasone sod phosphate 4 MG/ML VIAL IVPUSH (21:37)
[2024-05-30] MEDS: Azithromycin 500 MG in 0.9 % Sodium Chloride 250 ML 125 MG IV (21:37)
[2024-05-31] MEDS: Acetaminophen 325 MG TABLET 650 MG PO ×4 (00:08→22:40)
[2024-05-31] MEDS: Melatonin 3 MG TABLET 6 MG PO ×2 (00:08→22:39)
[2024-05-31 03:23] VITALS: BP 156/75; PULSE 64; RESP 18; TEMP 36.7; O2SAT 98
[2024-05-31] MEDS: Heparin Sodium,Porcine 5,000 UNIT/ML VIAL 5000 UNIT SUBCUT ×2 (04:12→13:47)
[2024-05-31] MEDS: dexAMETHasone sod phosphate 4 MG/ML VIAL IVPUSH ×4 (04:12→22:40)
[2024-05-31] MEDS: Omeprazole 20 MG CAPSULE.DR PO (04:26)
[2024-05-31 07:07] VITALS: BP 149/79; PULSE 73; RESP 18; TEMP 36.4; O2SAT 98
[2024-05-31 07:29] LABS: Glucose, Whole Blood 276 mg/dL (60-115)
[2024-05-31] MEDS: Sodium Bicarbonate 650 MG TABLET 1300 MG PO ×2 (07:55→22:39)
[2024-05-31] MEDS: carvediloL 25 MG TABLET PO ×2 (07:55→22:39)
[2024-05-31] MEDS: Isosorbide Mononitrate 30 MG TAB.ER.24H PO (07:55)
[2024-05-31] MEDS: Magnesium Oxide 400 MG TABLET PO ×2 (07:55→22:43)
[2024-05-31] MEDS: Insulin Lispro 100 UNIT/ML 3 ML VIAL SUBCUT ×4 (07:56→22:40)
[2024-05-31] MEDS: 0.9 % Sodium Chloride Flush 3 ML SYRINGE IVFLUSH ×3 (07:56→22:43)
[2024-05-31] MEDS: Sertraline HCL 25 MG TABLET PO (07:56)
[2024-05-31] MEDS: Multivitamin TABLET 1 TAB PO (08:00)
[2024-05-31] MEDS: Sucralfate 1 GM TABLET PO ×4 (08:00→22:41)
[2024-05-31] MEDS: TACROLIMUS 1 MG 8 EACH PO (08:01)
[2024-05-31] MEDS: iohexoL 350 MG/ML 100 ML INFUS..BTL IV (09:04)
[2024-05-31 11:34] LABS: Glucose, Whole Blood 276 mg/dL (60-115)
[2024-05-31 11:55] VITALS: BP 168/78; PULSE 74; RESP 24; TEMP 36.3; O2SAT 100
--- NOTE | 2024-05-31 14:13 | MHC.CLN ---
F/U PT QUALIFIES SEVERELY MALNOURISHED IN THE CONTEXT OF CHRONIC ILLNESS SEE CLINICAL NUTRITION ASSESSMENT 05/28/24 PO INTAKE 100% X 4 MEALS DIET RX:2000DM, 2 GRAM SODIUM, LOW POTASSIUM CHOPPED-APPROPRIATE SKIN WITH OPEN WOUND TO COCCYX ENSURE CLEAR TID SUPPLEMENT APPROPRIATE TO PROMOTE WOUND HEALING SUPPLEMENT PROVIDES 720 KCALS, 24 G PROTEIN AND IS RENAL FRIENDLY MONITOR PO INTAKE AND ENCOURAGE SUPPLEMENT
--- NOTE | 2024-05-31 14:28 | P.PNIM_ITS ---
Subjective Subjective Date of Service: 05/31/24 Interval History: Being followed for left upper extremity and lower extremity weakness Wants to know result of her chest CT, family at bedside 2 brothers and Denies acute symptoms of chest pain, no shortness of breath, no headache, no dizziness, tolerating diet no nausea vomiting, no fevers, no chills. Review of Systems All other system reviewed and are negative. Physical Exam 2 Vital Signs: Vital Signs: Last Vital Signs Temp 97.4 F 05/31/24 11:55 Pulse 74 05/31/24 11:55 Resp 24 H 05/31/24 11:55 BP 168/78 H 05/31/24 11:55 Pulse Ox 100 05/31/24 11:55 O2 Del Method Room Air 05/31/24 11:55 BMI result Body Mass Index 17.5 Const: Other: Gen: in no acute distress, muscle wasting HEENT: sclera anicteric, moist mucus membranes Neck: supple, no JVD Lungs: Clear, diminished Heart: regular rate and rhythm, no murmurs Abd: soft, non-tender, non-distended Ext: no edema Skin: warm/well-perfused Neuro: alert and oriented x3, LUE and LLE with 3/5 strength, face symmetrical Psych: appropriate affect Objective Data Active Medications Acetaminophen (Acetaminophen 325 Mg Tablet) 650 mg PO Q6H PRN PRN Reason: Pain, Mild 1-3,fever,headache Last Admin: 05/31/24 07:55 Dose: 650 mg Calcium Carbonate (Calcium Carbonate 750 Mg Tab.Chew) 750 mg PO Q4H PRN PRN Reason: Heartburn Carvedilol (Carvedilol 25 Mg Tablet) 25 mg PO BID [facility]; Protocol Last Admin: 05/31/24 07:55 Dose: 25 mg Documented By: RAMON Ceftriaxone Sodium (Ceftriaxone Sodium 1 Gm Vial) 1 gm IVPUSH Q24H [facility] Last Admin: 05/30/24 21:37 Dose: 1 gm Documented By: CECELIA Dexamethasone Sodium Phosphate (Dexamethasone Sod Phosphate 4 Mg/Ml Vial) 4 mg IVPUSH Q6H [facility] Last Admin: 05/31/24 08:02 Dose: 4 mg Documented By: RAMON Dextrose (Dextrose 50 % 25 Gm/50 Ml Syringe) 25 gm IVPUSH Q15M PRN; Protocol PRN Reason: per Hypoglycemia Standing Ord. Diphenhydramine HCl (Diphenhydramine Hcl 25 Mg Capsule) 25 mg PO BID PRN PRN Reason: itchiness Docusate Sodium (Docusate Sodium 100 Mg Capsule) 100 mg PO DAILY PRN PRN Reason: Constipation Epoetin Bassem-epbx (Epoetin Bassem-Epbx 20,000 Unit/Ml Vial) 20,000 unit SUBCUT MOWEFR [facility] Last Admin: 05/31/24 11:52 Dose: 20,000 unit Documented By: RAMON Glucose (Glucose Gel 15 Gm Gel..Gram.) 15 gm PO Q15M PRN; Protocol PRN Reason: per Hypoglycemia Standing Ord. Heparin Sodium (Porcine) (Heparin Sodium,Porcine 5,000 Unit/Ml Vial) 5,000 unit SUBCUT Q12H [facility] Last Admin: 05/31/24 13:47 Dose: 5,000 unit Documented By: RAMON Azithromycin 500 mg/ Sodium (Chloride) 250 mls @ 125 mls/hr IV Q24H [facility] Last Infusion: 05/30/24 23:37 Dose: Infused Documented By: CECELIA Insulin Human Lispro (Insulin Lispro 100 Unit/Ml 3 Ml Vial) 0 unit SUBCUT QIDACHS [facility]; Protocol Last Admin: 05/31/24 11:52 Dose: 6 unit Documented By: RAMON Isosorbide Mononitrate (Isosorbide Mononitrate 30 Mg Tab.Er.24h) 30 mg PO DAILY [facility]; Protocol Last Admin: 05/31/24 07:55 Dose: 30 mg Documented By: RAMON Lidocaine HCl (Lidocaine Hcl 1 % Mpf 2 Ml Vial) 0.5 ml SUBCUT MOWEFR@1645 [facility] Last Admin: 05/28/24 19:00 Dose: Not Given Documented By: RISHIYM Non-Admin Reason: given in HD Loperamide HCl (Loperamide Hcl 2 Mg Capsule) 2 mg PO Q4H PRN PRN Reason: diarrhea Magnesium Hydroxide (Milk Of Magnesia 30 Ml Oral.Susp) 30 ml PO DAILY PRN PRN Reason: Constipation Magnesium Oxide (Magnesium Oxide 400 Mg Tablet) 400 mg PO BID [facility] Last Admin: 05/31/24 07:55 Dose: 400 mg Documented By: RAMON Melatonin (Melatonin 3 Mg Tablet) 6 mg PO BEDTIME PRN PRN Reason: Insomnia Last Admin: 05/31/24 00:08 Dose: 6 mg Documented By: CECELIA Multivitamins/Vitamin C (Multivitamin Tablet) 1 tab PO DAILY [facility] Last Admin: 05/31/24 08:00 Dose: 1 tab Documented By: RAMON Non-Formulary Medication ( Tacrolimus 1 Mg Tablet Extended Release 24 Hr) 8 mg PO DAILY [facility] Last Admin: 05/31/24 08:01 Dose: 8 mg Documented By: RAMON Omeprazole (Omeprazole 20 Mg Capsule.) 20 mg PO DAILY@0630 [facility] Last Admin: 05/31/24 04:26 Dose: 20 mg Documented By: CECELIA Ondansetron HCl (Ondansetron Hcl 4 Mg/2 Ml Vial) 4 mg IVPUSH Q8H PRN PRN Reason: Nausea and Vomiting Polyethylene Glycol (Polyethylene Glycol 3350 17 Gm Powd.Pack) 17 gm PO DAILY PRN PRN Reason: Constipation Sertraline HCl (Sertraline Hcl 25 Mg Tablet) 25 mg PO DAILY [facility] Last Admin: 05/31/24 07:56 Dose: 25 mg Documented By: RAMON Sodium Bicarbonate (Sodium Bicarbonate 650 Mg Tablet) 1,300 mg PO BID [facility] Last Admin: 05/31/24 07:55 Dose: 1,300 mg Documented By: RAMON Sodium Chloride (0.9 % Sodium Chloride Flush 3 Ml Syringe) 3 ml IVFLUSH QSHIFT [facility] Last Admin: 05/31/24 07:56 Dose: 3 ml Documented By: RAMON Sucralfate (Sucralfate 1 Gm Tablet) 1 gm PO QIDACHS [facility] Last Admin: 05/31/24 11:52 Dose: 1 gm Documented By: RAMON Labs 05/30/24 07:24 05/30/24 07:24 Labs: Laboratory Results - last 24 hr 05/27/24 05/27/24 05/27/24 20:14 21:44 23:34 MCV 91.6 MCH 27.3 MCHC 29.8 L RDW 17.8 H Plt Count 321 MPV 10.0 Immature Gran % (Auto) 1.5 H Neut % (Auto) 84.5 H Lymph % (Auto) 5.3 L [place] % (Auto) 8.2 Eos % (Auto) 0.2 Baso % (Auto) 0.3 Lymph # (Auto) 1.0 L [place] # (Auto) 1.6 H Eos # (Auto) 0.0 Baso # (Auto) 0.1 Abs Immat Gran (auto) 0.30 H Absolute Neuts (auto) 16.4 H Absolute Nucleated RBC 0.000 Nucleated RBC % (auto) 0.0 Smear Tech's Comments VERIFIED Smear Path Review PT 12.6 H INR 1.1 Anion Gap 14 14 Estim Creat Clear Calc 14.3 14.1 Estimated GFR 16 15 POC Glucose Random Glucose 88 76 Lactic Acid 0.5 Calcium 9.6 D 9.4 Phosphorus Magnesium Iron TIBC % Saturation Unsat Iron Binding Ferritin Total Bilirubin 0.4 AST 19 ALT < 6 Alkaline Phosphatase 69 Lactate Dehydrogenase Troponin I High Sens 21.7 H Total Protein 0.4 L Albumin 2.7 L Lipase 9 Procalcitonin Influenza Type A (PCR) NEGATIVE Influenza Type B (PCR) NEGATIVE RSV RNA Qual (PCR) NEGATIVE SARS-CoV-2 RNA (RT-PCR) NEGATIVE 05/28/24 05/28/24 05/29/24 03:02 06:50 07:55 MCV MCH MCHC RDW Plt Count MPV Immature Gran % (Auto) Neut % (Auto) Lymph % (Auto) [place] % (Auto) Eos % (Auto) Baso % (Auto) Lymph # (Auto) [place] # (Auto) Eos # (Auto) Baso # (Auto) Abs Immat Gran (auto) Absolute Neuts (auto) Absolute Nucleated RBC Nucleated RBC % (auto) Smear Tech's Comments Smear Path Review SEE NOTE PT INR Anion Gap 14 Estim Creat Clear Calc 13.7 Estimated GFR 15 POC Glucose Random Glucose 72 Lactic Acid Calcium 9.6 Phosphorus 2.0 L Magnesium 2.0 Iron 19 L TIBC 87 L % Saturation 22 Unsat Iron Binding 68 Ferritin 9043 H Total Bilirubin 0.4 AST 18 ALT < 6 Alkaline Phosphatase 64 Lactate Dehydrogenase 195 Troponin I High Sens Total Protein 6.6 Albumin 2.4 L Lipase Procalcitonin 1.50 Influenza Type A (PCR) Influenza Type B (PCR) RSV RNA Qual (PCR) SARS-CoV-2 RNA (RT-PCR) 0205/30/24 05/31/24 16:23 19:22 07:06 MCV MCH MCHC RDW Plt Count MPV Immature Gran % (Auto) Neut % (Auto) Lymph % (Auto) [place] % (Auto) Eos % (Auto) Baso % (Auto) Lymph # (Auto) [place] # (Auto) Eos # (Auto) Baso # (Auto) Abs Immat Gran (auto) Absolute Neuts (auto) Absolute Nucleated RBC Nucleated RBC % (auto) Smear Tech's Comments Smear Path Review PT INR Anion Gap Estim Creat Clear Calc Estimated GFR POC Glucose 198 H 239 H 276 H Random Glucose Lactic Acid Calcium Phosphorus Magnesium Iron TIBC % Saturation Unsat Iron Binding Ferritin Total Bilirubin AST ALT Alkaline Phosphatase Lactate Dehydrogenase Troponin I High Sens Total Protein Albumin Lipase Procalcitonin Influenza Type A (PCR) Influenza Type B (PCR) RSV RNA Qual (PCR) SARS-CoV-2 RNA (RT-PCR) 05/31/24 11:30 MCV MCH MCHC RDW Plt Count MPV Immature Gran % (Auto) Neut % (Auto) Lymph % (Auto) [place] % (Auto) Eos % (Auto) Baso % (Auto) Lymph # (Auto) [place] # (Auto) Eos # (Auto) Baso # (Auto) Abs Immat Gran (auto) Absolute Neuts (auto) Absolute Nucleated RBC Nucleated RBC % (auto) Smear Tech's Comments Smear Path Review PT INR Anion Gap Estim Creat Clear Calc Estimated GFR POC Glucose 276 H Random Glucose Lactic Acid Calcium Phosphorus Magnesium Iron TIBC % Saturation Unsat Iron Binding Ferritin Total Bilirubin AST ALT Alkaline Phosphatase Lactate Dehydrogenase Troponin I High Sens Total Protein Albumin Lipase Procalcitonin Influenza Type A (PCR) Influenza Type B (PCR) RSV RNA Qual (PCR) SARS-CoV-2 RNA (RT-PCR) Assessment and Plan (1) Severe malnutrition: Status: Acute (2) Encephalopathy: Status: Acute (3) ESRD (end stage renal disease) on dialysis: Status: Acute Plan 64yo F with ESRD on HD MWF with failed transplant, HTN, HLD, HFrEF, DM2, GERD, esophagitis presented with weakness, missed HD on 05/26, found to be febrile due to PNA developed LUE/LLE weakness concerning for thalamic stroke vs. mass Left upper extremity and left lower extremity weakness due to thalamic and parietal lobe nodules - Neuro consulted, MRI showed peripherally enhancing nodules within the right thalamus, left parietal lobe and at the right temporo-occipital junction maybe secondary to metastatic disease or an inflammatory/infectious process Continue dexamethasone to prevent cerebral edema CT chest showed spiculated soft tissue masses both lungs largest in the right middle lobe laterally and posterior right upper lobe, necrotic appearing pleural based lesions right hemithorax findings consistent with advanced malignancy, suspect right basilar loculated pleural abscess measuring up to 9 cm, smooth interlobular septal thickening right greater than left lungs with small layering pleural effusion findings consistent with super imposed pulmonary edema, mild cardiomegaly, anasarca. Prior pleural fluid studies from 04/09/2024 was negative for malignant cells. Will consult pulmonology for further workup Normal carotid ultrasound CA-PNA -WBC trending down, no fevers continue ceftriaxone and azithromycin 05/28-; PCT decreasing ; BCx negative; TELEPHONE DIRECTORY DISTRIBUTOR DRIVER recommend to continue NDD3 solids/thin liquids anemia of ESRD - improved after transfused 1u pRBCs 05/29; FOBT negative; gave epo 72925 units 05/29 and continue MWF hyperK - resolved after HD 05/28 ESRD on HD - HD 05/28 and continue MWF renal transplant - continue prednisone + tacrolimus chronic HFrEF - continue Imdur, carvedilol - volume management by dialysis GERD esophagitis - PPI, sucralfate DM2 -elevated blood sugars likely due to steroids, adjust malaika-dose lispro mood disorder - sertraline severe malnutrition - continue supplements Stage II pressure injury, seen by wound nurse continue foam dressing and protection from friction and moisture and protect bony prominences, high-protein diet. Multiple skin nodules unclear etiology - PT/OT eval pending VTE ppx - UFH In my clinical judgment, the patient requires continued inpatient hospitalization for the following reasons: brain mass workup, IV ABX and expert consultation Quality Stroke Does the patient have a stroke diagnosis?: No VTE Prior VTE?: No VTE Risk Level:: Medical - moderate - high VTE Device Contraindication: N/A - Device Ordered VTE Drug Contraindication: N/A - Med Ordered
--- NOTE | 2024-05-31 14:37 | HO.WOUND ---
Wound Consult: Initial 64yr old?female admitted to [facility] on 05/28/24 - See progress notes and H&P for detailed history.? Wound consult placed for sacral wound POA.? Patient agreeable to assessment and photo documentation.? Patient reports she does not use briefs at home and the wound is improving over all. She reports foam dressing and or barrier cream she has used in the past. Sacrum Etiology: ?Improving Stage 2 Pressure Injury ?Present on Admission Wound Bed: central open area with partial thickness tissue loss Drainage / Odor: none noted Edges: ?irregular Ksenia wound: intact hypopigmented tissue - some areas of maceration noted No Induration, Fluctuance or Warmth noted Pain: denies pain Goals of Treatment: ? Foam dressing to aid in protection from friction and moisture and protect bony prominence Right Inner Thigh Left Abdomen Unclear etiology - there are sites in various stages. There are some with firm palpable areas there are open areas with Full thickness tissue lose and marbled wound bed with pink and yellow slough - will contact Dr Fraga via TT regarding sites and unknown etiology they are not consistent with pressure or moisture. Open wounds can be treated with durafiber AG. Recommendations: 1. Turn and Reposition every 2 hours and as needed for patient comfort.? Use pillows or wedges to support off loading positions. 2. Off Load all bony prominences with use of pillows and heel boots if needed.? Apply Preventative foams where needed. ? 3. Monitor for incontinence and moisture control, use barrier creams when needed for prevention and treatment. 4. Provide adequate and supplemental nutrition.? 5. Continue low air loss mattress. 6. When applicable maintain blood glucose levels per Providers order. 7. Sacrum - Routine Cleansing with Ph balanced wipes, pat dry. Apply skin prep to periwound. Apply sacral foam dressing, change every 3 days and PRN. 8. Right Elbow and Right Thigh - Cleanse with NS moist gauze, pat dry. Apply skin prep to periwound. Apply durafiber AG to wound bed cover with foam dressing change every 3 days. Re-consult wound care Nurse for wound deterioration or wound changes.
--- NOTE | 2024-05-31 15:13 | MHC.SL.SWA ---
Speech Pathologist Impression: Mild to moderate oral phase dysphagia d/t decreased sensation and ability to formulate bolus; variable pharyngeal phase dysphagia with liquids, history of esophagitis Risk of Aspiration Due to: Medically complex Recent CVA History of esophagitis Dysphasia Diet Status: Liquid Consistency and Strategies for Safe Swallow: Liquid Intake Recommendation: Thin Liquid Intake Strategies: Small Sips Solid Food Consistency: Dietary Recommendations: Chopped/Advanced (NDD3) Additional Modifications to Solid Foods: Patient w/ mild oral phase dysphagia, characterized by slowed, disorganized, and piece meal chewing, w/ limited natural dentition. No overt s/s of aspiration noted at bedside with trials of solids and liquids. Recommend DOWNGRADE to CHOPPED/ADVANCED (NDD3) diet for ease of mastication and THIN liquids, pills WHOLE or CRUSHED in PUREE. Strategies recommended to promote oral clearance: take small bites, chew food well, alternate with sips of liquid, dry swallow between bites. Oral Medication Intake: Whole with Puree Please contact the pharmacy regarding appropriate crushable or liquid drug formulations that are available whenever modified delivery is recommended. Compensatory Strategies and Precautions to be Taken for Safe Swallow: Sitting Upright (90 deg) Small Bites and Sips Alternate Liquids/Solids Rate of Ingestion Change Oral Check Supervision While Eating and Drinking for Safe Swallow: Intermittent Supervision Foods to Avoid: Hard or tough to chew solids Swallowing Recommended Treatments: Compens. Strategy Educat. Recommendation for Speech: Inpatient Speech Therapy Comment: 1-2 f/u Frequency/Duration: Date Range for Service Req: Timeline to reassess: Tool Room Gear Machine Operator Clinican/Clinical Fellow: No Supervisory Statement: I have reviewed and agree with the student/clinical fellow's documentation: N/A Speech Language Pathologist: Rosemary Ortega M.S., CCC-PIG FURNACE OPERATOR
[2024-05-31 15:36] VITALS: BP 175/80; PULSE 61; RESP 19; TEMP 36.1; O2SAT 96
[2024-05-31 16:05] LABS: Glucose, Whole Blood 237 mg/dL (60-115)
[2024-05-31] MEDS: Loperamide HCl 2 MG CAPSULE PO ×2 (16:18→22:39)
--- NOTE | 2024-05-31 18:09 | PC.NURSE ---
Patient to hemodialysis at this time.
[2024-05-31 18:17] LABS: Appearance Urine Clear; Color Urine Yellow; Glucose Urine UA 250 mg/dL (Negative); Leukocyte Esterase Urine Negative (Negative); Nitrite Urine Negative (Negative); Specific Gravity - Urine 1.025 (1.005-1.025); UMIC TRIGGER UACC YES; Urine Blood Negative (Negative); Urine Ketones Negative (Negative); Urine Protein 100 (2+) mg/dL (Neg-Trace)
[2024-05-31 18:50] LABS: Bacteria Urine None Seen (None Seen); Calcium Oxalate Crystals Urine Present; RBC Urine 0-2 /HPF (0-2); Squamous Epithelial Cell Urine 0-2 /HPF (0-2); WBC Urine 0-5 /HPF (0-5)
[2024-05-31 20:00] VITALS: BP 189/88; PULSE 65; RESP 18; TEMP 36.4; O2SAT 99
--- NOTE | 2024-05-31 20:34 | PM.PNNEP ---
Subjective Subjective Date of Service: 05/31/24 Interval history: no shortness of breath, no headache, no dizziness, tolerating diet no nausea vomiting, no fevers, no chills. HD today Physical Exam Vital Signs: Vital Signs: Last Vital Signs Temp 97.0 F 05/31/24 15:36 Pulse 61 05/31/24 15:36 Resp 19 05/31/24 15:36 BP 175/80 H 05/31/24 15:36 Pulse Ox 96 05/31/24 15:36 O2 Del Method Room Air 05/31/24 15:36 BMI result Body Mass Index 17.5 Const: General: no acute distress Orientation/consciousness: patient oriented x3 Eyes: EOM: EOMs intact bilaterally Neck: Neck: Yes supple Resp: Auscultation: diminished lung sounds Cardio: Rate: regular rate GI: Palpation (GI): Soft to palpation Neuro: General: patient oriented x3 Objective Data Labs 05/30/24 07:24 05/30/24 07:24 Labs: Laboratory Results - last 24 hr 05/27/24 05/27/24 05/27/24 20:14 21:44 23:34 WBC 19.4 H RBC 3.08 L Hgb 8.4 L Hct 28.2 L MCV 91.6 MCH 27.3 MCHC 29.8 L RDW 17.8 H Plt Count 321 MPV 10.0 Immature Gran % (Auto) 1.5 H Neut % (Auto) 84.5 H Lymph % (Auto) 5.3 L [place] % (Auto) 8.2 Eos % (Auto) 0.2 Baso % (Auto) 0.3 Lymph # (Auto) 1.0 L [place] # (Auto) 1.6 H Eos # (Auto) 0.0 Baso # (Auto) 0.1 Abs Immat Gran (auto) 0.30 H Absolute Neuts (auto) 16.4 H Absolute Nucleated RBC 0.000 Nucleated RBC % (auto) 0.0 Smear Tech's Comments VERIFIED Smear Path Review Absolute Retic Percent Retic Immature Retic Fraction Retic Hgb Equivalent PT 12.6 H INR 1.1 Sodium 134 L 135 Potassium 6.9 H* D 6.1 H* Chloride 103 104 Carbon Dioxide 24 23 Anion Gap 14 14 BUN 53 H 50 H Creatinine 3.00 H 3.04 H Estim Creat Clear Calc 14.3 14.1 Estimated GFR 16 15 POC Glucose Random Glucose 88 76 Lactic Acid 0.5 Calcium 9.6 D 9.4 Phosphorus Magnesium Iron TIBC % Saturation Unsat Iron Binding Ferritin Total Bilirubin 0.4 AST 19 ALT < 6 Alkaline Phosphatase 69 Lactate Dehydrogenase Troponin I High Sens 21.7 H Total Protein 0.4 L Albumin 2.7 L Lipase 9 Procalcitonin Urine Color Urine Appearance Urine pH Ur Specific [place] Urine Protein Urine Glucose (UA) Urine Ketones Urine Blood Urine Nitrite Ur Leukocyte Esterase Urine RBC Urine WBC Ur Squamous Epith Cells Calcium Oxalate Crystal Urine Bacteria Hyaline Casts Influenza Type A (PCR) NEGATIVE Influenza Type B (PCR) NEGATIVE RSV RNA Qual (PCR) NEGATIVE SARS-CoV-2 RNA (RT-PCR) NEGATIVE 05/28/24 05/28/24 05/28/24 03:02 06:50 10:02 WBC 17.1 H RBC 2.81 L Hgb 7.7 L Hct 26.0 L MCV 92.5 MCH 27.4 MCHC 29.6 L RDW 17.4 H Plt Count 320 MPV 10.2 Immature Gran % (Auto) 1.8 H Neut % (Auto) 84.1 H Lymph % (Auto) 4.7 L [place] % (Auto) 8.9 Eos % (Auto) 0.2 Baso % (Auto) 0.3 Lymph # (Auto) 0.8 L [place] # (Auto) 1.5 H Eos # (Auto) 0.0 Baso # (Auto) 0.1 Abs Immat Gran (auto) 0.30 H Absolute Neuts (auto) 14.4 H Absolute Nucleated RBC 0.000 Nucleated RBC % (auto) 0.0 Smear Tech's Comments VERIFIED Smear Path Review Absolute Retic 0.034 Percent Retic 1.2 Immature Retic Fraction 11.1 Retic Hgb Equivalent 25.2 L PT INR Sodium 136 Potassium 6.1 H* 5.9 H Chloride 105 Carbon Dioxide 23 Anion Gap 14 BUN 53 H Creatinine 3.13 H Estim Creat Clear Calc 13.7 Estimated GFR 15 POC Glucose 114 Random Glucose 72 Lactic Acid Calcium 9.6 Phosphorus 2.0 L Magnesium 2.0 Iron 19 L TIBC 87 L % Saturation 22 Unsat Iron Binding 68 Ferritin 9043 H Total Bilirubin 0.4 AST 18 ALT < 6 Alkaline Phosphatase 64 Lactate Dehydrogenase 195 Troponin I High Sens Total Protein 6.6 Albumin 2.4 L Lipase Procalcitonin 1.50 Urine Color Urine Appearance Urine pH Ur Specific [place] Urine Protein Urine Glucose (UA) Urine Ketones Urine Blood Urine Nitrite Ur Leukocyte Esterase Urine RBC Urine WBC Ur Squamous Epith Cells Calcium Oxalate Crystal Urine Bacteria Hyaline Casts Influenza Type A (PCR) Influenza Type B (PCR) RSV RNA Qual (PCR) SARS-CoV-2 RNA (RT-PCR) 05/28/24 05/28/24 05/28/24 10:58 15:28 21:08 WBC RBC Hgb Hct MCV MCH MCHC RDW Plt Count MPV Immature Gran % (Auto) Neut % (Auto) Lymph % (Auto) [place] % (Auto) Eos % (Auto) Baso % (Auto) Lymph # (Auto) [place] # (Auto) Eos # (Auto) Baso # (Auto) Abs Immat Gran (auto) Absolute Neuts (auto) Absolute Nucleated RBC Nucleated RBC % (auto) Smear Tech's Comments Smear Path Review Absolute Retic Percent Retic Immature Retic Fraction Retic Hgb Equivalent PT INR Sodium Potassium Chloride Carbon Dioxide Anion Gap BUN Creatinine Estim Creat Clear Calc Estimated GFR POC Glucose 158 H 93 128 H Random Glucose Lactic Acid Calcium Phosphorus Magnesium Iron TIBC % Saturation Unsat Iron Binding Ferritin Total Bilirubin AST ALT Alkaline Phosphatase Lactate Dehydrogenase Troponin I High Sens Total Protein Albumin Lipase Procalcitonin Urine Color Urine Appearance Urine pH Ur Specific [place] Urine Protein Urine Glucose (UA) Urine Ketones Urine Blood Urine Nitrite Ur Leukocyte Esterase Urine RBC Urine WBC Ur Squamous Epith Cells Calcium Oxalate Crystal Urine Bacteria Hyaline Casts Influenza Type A (PCR) Influenza Type B (PCR) RSV RNA Qual (PCR) SARS-CoV-2 RNA (RT-PCR) 05/29/24 05/31/24 05/31/24 07:55 07:06 11:30 WBC RBC Hgb Hct MCV MCH MCHC RDW Plt Count MPV Immature Gran % (Auto) Neut % (Auto) Lymph % (Auto) [place] % (Auto) Eos % (Auto) Baso % (Auto) Lymph # (Auto) [place] # (Auto) Eos # (Auto) Baso # (Auto) Abs Immat Gran (auto) Absolute Neuts (auto) Absolute Nucleated RBC Nucleated RBC % (auto) Smear Tech's Comments Smear Path Review SEE NOTE Absolute Retic Percent Retic Immature Retic Fraction Retic Hgb Equivalent PT INR Sodium Potassium Chloride Carbon Dioxide Anion Gap BUN Creatinine Estim Creat Clear Calc Estimated GFR POC Glucose 276 H 276 H Random Glucose Lactic Acid Calcium Phosphorus Magnesium Iron TIBC % Saturation Unsat Iron Binding Ferritin Total Bilirubin AST ALT Alkaline Phosphatase Lactate Dehydrogenase Troponin I High Sens Total Protein Albumin Lipase Procalcitonin Urine Color Urine Appearance Urine pH Ur Specific [place] Urine Protein Urine Glucose (UA) Urine Ketones Urine Blood Urine Nitrite Ur Leukocyte Esterase Urine RBC Urine WBC Ur Squamous Epith Cells Calcium Oxalate Crystal Urine Bacteria Hyaline Casts Influenza Type A (PCR) Influenza Type B (PCR) RSV RNA Qual (PCR) SARS-CoV-2 RNA (RT-PCR) 05/31/24 05/31/24 16:01 17:47 WBC RBC Hgb Hct MCV MCH MCHC RDW Plt Count MPV Immature Gran % (Auto) Neut % (Auto) Lymph % (Auto) [place] % (Auto) Eos % (Auto) Baso % (Auto) Lymph # (Auto) [place] # (Auto) Eos # (Auto) Baso # (Auto) Abs Immat Gran (auto) Absolute Neuts (auto) Absolute Nucleated RBC Nucleated RBC % (auto) Smear Tech's Comments Smear Path Review Absolute Retic Percent Retic Immature Retic Fraction Retic Hgb Equivalent PT INR Sodium Potassium Chloride Carbon Dioxide Anion Gap BUN Creatinine Estim Creat Clear Calc Estimated GFR POC Glucose 237 H Random Glucose Lactic Acid Calcium Phosphorus Magnesium Iron TIBC % Saturation Unsat Iron Binding Ferritin Total Bilirubin AST ALT Alkaline Phosphatase Lactate Dehydrogenase Troponin I High Sens Total Protein Albumin Lipase Procalcitonin Urine Color Yellow Urine Appearance Clear Urine pH 8.0 Ur Specific [place] 1.025 Urine Protein 100 (2+) H Urine Glucose (UA) 250 H Urine Ketones Negative Urine Blood Negative Urine Nitrite Negative Ur Leukocyte Esterase Negative Urine RBC 0-2 Urine WBC 0-5 Ur Squamous Epith Cells 0-2 Calcium Oxalate Crystal Present Urine Bacteria None Seen Hyaline Casts 3-5 Influenza Type A (PCR) Influenza Type B (PCR) RSV RNA Qual (PCR) SARS-CoV-2 RNA (RT-PCR) Microbiology Microbiology Results: Microbiology 05/27/24 21:48 Blood - Venous Blood Culture - Preliminary No growth after 48 hours. 05/27/24 21:44 Blood - Venous Blood Culture - Preliminary No growth after 48 hours. Procedures Date of Service Date of Service: 05/31/24 Assessment & Plan Assessment and plan (1) ESRD (end stage renal disease) on dialysis: Status: Acute Plan Usually gets HD on MWF Shall dialyze today Has a functioning AVF Low Na/K diet with fluid restriction Procrit [id number] MWF to keep Hb ~ 10 Continue rest of current management for now Progress Note: Quality Stroke Does the patient have a stroke diagnosis?: No
[2024-05-31 22:19] LABS: Glucose, Whole Blood 209 mg/dL (60-115)
[2024-05-31] MEDS: cefTRIAXone sodium 1 GM VIAL IVPUSH (22:38)
[2024-05-31 22:39] VITALS: BP 177/68; PULSE 87
[2024-05-31] MEDS: Azithromycin 500 MG in 0.9 % Sodium Chloride 250 ML 125 MG IV (22:39)
[2024-06-01] VITALS (10 sets, daily range): BP systolic 155–202; BP diastolic 72–91; PULSE 57–68; RESP 18–20; TEMP 36.1–36.8; O2SAT 98–100
[2024-06-01] MEDS: Heparin Sodium,Porcine 5,000 UNIT/ML VIAL 5000 UNIT SUBCUT ×2 (03:35→17:31)
[2024-06-01] MEDS: dexAMETHasone sod phosphate 4 MG/ML VIAL IVPUSH ×2 (03:35→08:36)
[2024-06-01 04:28] LABS: HIV AB/AG Nonreactive (Nonreactive); HIV Num 1 0.08 S/CO (0.00-0.99)
[2024-06-01] MEDS: hydrALAZINE HCl 20 MG/ML VIAL 10 MG IVPUSH (04:52)
[2024-06-01] MEDS: Loperamide HCl 2 MG CAPSULE PO ×2 (04:53→17:38)
[2024-06-01] MEDS: Omeprazole 20 MG CAPSULE.DR PO (05:02)
--- NOTE | 2024-06-01 05:15 | PC.NURSE ---
Sutures to L arm fistula site removed per MD order. Patient tolerated well.
--- NOTE | 2024-06-01 07:00 | CA_ITS ---
Transthoracic Echocardiogram Amended Patient (Last, First, Middle): Alix Sharp B Gender: Female Date of : 1960 Age: 64 Procedure Date: 06/01/2024 Procedure Type: Transthoracic Echocardiogram Location: [facility] Height: 167.64 cm Weight: 48.99 kg BSA: 1.54 m2 Heart Rate: bpm BP: 174 / 81 mmHg Roof Bolter: ALONZO Referring MD: Nirav Osborn MD Senior Chemist: Georges Aguilera MD Symptoms: bacteremia Study Quality: Adequate ECG Rhythm: Sinus Conclusions: - 1. Normal LV ejection fraction with pseudonormal filling pattern 2. Severely dilated left atrium 3. Severe mitral annular calcification with mobile calcified nodule noted on the atrial surface, less likely to be a vegetation with mild mitral regurgitation 4. No gross pericardial effusion Findings Left Ventricle Normal left ventricular size, thickness, and systolic function. The visually estimated ejection fraction is between 60-65%. Spectral Doppler is indicative of a pseudonormal filling pattern. Right Ventricle Normal right ventricular cavity size and systolic function. Atria The left atrium is severely dilated. There is no evidence of interatrial shunt. The right atrium is mildly dilated. Aortic Valve There is mild calcification of the aortic valve. There is mild thickening of the aortic valve. There is no aortic valve stenosis. There is no aortic valve regurgitation. Mitral Valve There is mild anterior and severe posterior mitral leaflet thickening. The posterior mitral leaflet is immobile. There is mild mitral valve regurgitation. There is no mitral valve stenosis. there is a mobile calcified nodule noted on the atrial side most likely part of the complex mitral annular calcification and less likely to be a vegetation. Pulmonic Valve The pulmonic valve was not well visualized. Tricuspid Valve Likely normal tricuspid valve structure and function. Normal right atrial pressure. Great Vessels Small plaque is seen in the sino tubular ridge. Venous The inferior vena cava is normal in size and collapses greater than 50% with inspiration. Pericardium/Pleural There is no evidence of pericardial effusion. Recommendations, Care & Conclusions Consider a JOSEPH if clinically appropriate. Measurements 2D Linear Measurements IVSd: 0.82 0.6-0.9/0.6-1.0 cm LVIDd: 4.28 3.9-5.3/4.2-5.9 cm LVIDd Index: 2.78 2.4-3.2/2.2-3.1 cm/m2 LVIDs: 2.80 2.0-3.6 cm LVPWd: 1.03 0.7-1.1 cm LA Diam: 3.20 2.7-3.8/3.0-4.0 cm LAIDs Index: 2.08 1.5-2.3 cm/m2 LV Mass: 157.55 67-162/88-224 g LV Mass Index: 102.31 43-95/49-115 g/m2 LVOT Diam: 1.90 3.0+(-)1.3 cm 2D Volumes LA Vol: 72.70 2D Systolic Function EF 4C: 65.60 >55% EF 2C: 58.20 >55% EF BiP: 61.40 >55% Mitral Valve MV VTI: 0.55 MV Pk [place]: 1.38 MV Mn [place]: 0.91 MV Pk Grad: 8.00 MV Mn Grad: 4.00 MV Pk E: 1.19 MV PK A: 1.22 MV Decel Time: 438.00 E/A: 1.00 E'Lateral: 6.42 E'Medial: 6.20 E/E' Med: 19.20 E/E' Lat: 18.50 PHT: 128.00 MVA PHT: 1.72 MVA Continuity: 1.63 Decel [place]: 2.72 MR Vol - PW Dopp: 21.80 MR VTI: 2.18 MR ERO: 10.00 MR Alias [place]: 0.36 MR RAD: 0.50 Aortic Valve AoV Pk [place]: 2.11 AoV Mn [place]: 1.34 AoV VTI: 0.50 AoV Pk Grad: 18.00 Aov Mn Grad: 9.00 BOB Cont.VTI: 1.78 LVOT LVOT Pk [place]: 1.48 LVOT Mn [place]: 0.93 LVOT VTI: 0.32 LVOT Pk Grad: 9.00 LVOT Mn Grad: 4.00 LVOT Diam: 1.90 LVOT Area: 2.84 Diastolic Function MV Pk E: 1.19 MV Pk A: 1.22 E/A: 1.00 E'Medial: 6.20 E/E' Med: 19.20 E' Laterial: 6.42 E/E' Lat: 18.50 Right Ventricle TAPSE (mm): 26.70 TVS' [place]: 15.90 Tricuspid Valve RA Press: 3.00 Great Vessels Aorta Sinus of Valsalva: 2.80 2.0-3.[address] [place]: 2.07 1.7-3.4 cm Updated in Other Vendor System with Status of Final Georges Aguilera MD electronically signed on 06/01/2024 12:17:53 PM with status of Final
[2024-06-01 07:12] LABS: Glucose, Whole Blood 201 mg/dL (60-115)
[2024-06-01] MEDS: Insulin Lispro 100 UNIT/ML 3 ML VIAL SUBCUT ×4 (08:35→22:12)
[2024-06-01] MEDS: Sucralfate 1 GM TABLET PO ×4 (08:36→22:12)
[2024-06-01] MEDS: Sertraline HCL 25 MG TABLET PO (08:36)
[2024-06-01] MEDS: carvediloL 25 MG TABLET PO ×2 (08:36→22:12)
[2024-06-01] MEDS: Sodium Bicarbonate 650 MG TABLET 1300 MG PO ×2 (08:36→22:11)
[2024-06-01] MEDS: Isosorbide Mononitrate 30 MG TAB.ER.24H PO (08:36)
[2024-06-01] MEDS: 0.9 % Sodium Chloride Flush 3 ML SYRINGE IVFLUSH ×2 (08:37→17:32)
[2024-06-01] MEDS: Multivitamin TABLET 1 TAB PO (08:37)
[2024-06-01] MEDS: TACROLIMUS 1 MG 8 EACH PO (08:40)
[2024-06-01] MEDS: Magnesium Oxide 400 MG TABLET PO ×2 (08:40→22:12)
--- NOTE | 2024-06-01 08:45 | P.CONPL_ITS ---
History of Present Illness History of Present Illness Consult date: 06/01/24 Chief complaint: multifocal pneumonia Narrative: This is an inpatient pulmonary consultation. The patient is a 64 year old with history of ESRD on HD MWF, hypertension, hyperlipidemia, HFrEF, T2DM, GERD with esophagitis, presents to the ER from home via EMS with multiple complains including feeling generally unwell with headaches, shortness of breath and mild abdominal pain. She is a poor historian and her son had already left the ER when I got to see her so most of the history is from the emergency room provider who got to speak to her son. She apparently lives alone and has been unwell for sometime now and that yesterday, she was very ill and missed her dialysis session. On arrival to the emergency room, she was febrile with a temperature of had a fever 101.1? F and a blood work done revealed a leukocytosis of 19.4 kg with 84% neutrophils. She was anemic with a hemoglobin of 8.5 and a hematocrit of 28.2. Additionally her potassium was elevated at 6.9 and high sensitivity troponin I was also mildly elevated at 21.7 but she has had no chest pain and EKG done did not show any ischemic changes. A chest x-ray done showed a right mid lung and left lower lobe patchy consolidation concerning for multifocal pneumonia and also diffuse interstitial prominence and small right pleural effusion but may represent a pulmonary edema /fluid overload. She received IV antibiotics ( ceftriaxone and azithromycin), Lokelma and the sodium bicarbonate at admission was requested for continued care. During the hospital course the patient did have a MRI of the brain demonstrating some lesions to the thalamus suggesting either metastatic disease or infectious or inflammatory etiologies. In addition to that she had a CT scan of the chest that I personally reviewed with spiculated masses in the periphery of the lungs bilaterally some nodules of different sizes in a bronchovascular distribution concerning for hematogenous spread. In addition to that the patient does have some skin findings with some access using the skin. All these findings are very suspicious for a an infectious process. The patient is immunocompromised in his at risk for immunocompromised in conditions. They did consider resistant organisms versus fungal infections. Review of Systems 2 Constitutional: Constitutional: Reports fatigue and Reports fever(s) Eyes: Eyes: Denies blurry vision and Denies itchy eyes ENT: Denies nasal congestion, Denies post nasal drip, Denies sinus pain, Denies sinus pressure and Denies other ( Thrush) Cardiovascular: Cardiovascular: Denies chest pain, Denies pedal edema, Reports dyspnea on exertion, Denies orthopnea and Denies paroxysmal nocturnal dyspnea Respiratory: Respiratory: Denies cough, Denies hemoptysis, Denies excessive phlegm production, Reports dyspnea on exertion and Denies wheezing Gastrointestinal: Gastrointestinal: Denies abdominal pain and Denies heartburn Musculoskeletal: Musculoskeletal: Denies myalgias, Denies arthralgias, Denies joint swelling, Reports muscle weakness and Reports numbness Integumentary/Breasts: Skin/Breast: Reports rash, Reports skin swelling and Reports skin ulcer Neurologic: Reports as per HPI, Denies memory loss, Reports numbness and Denies seizure-like activity Psychiatric: Psychiatric: Denies abnormal sleep pattern, Denies anxiety and Denies memory loss Endocrine: Endocrine: Reports fatigue and Denies heat intolerance Hematologic/Lymphatic: Hematologic/Lymphatic: Denies easy bruising Allergic/Immunologic: Allergic/Immunologic: Denies itchy eyes, Denies seasonal rhinorrhea and Denies wheezing PMFSH Past Medical History Medical History HTN (hypertension) Mood disorder 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) Kidney transplant status History of appendectomy H/O cardiac catheterization Social History Social History Household Members: Spouse Housing: House Do you presently have visiting nurse or other home services: Yes Alcohol intake: never Comment: patient is bedbound at this time Patient Tobacco Use Status: Never used Tobacco service: Yes Meds Allergies Allergy/AdvReac Type Severity Reaction Status Date / Time codeine [CODEINE] Allergy Intermediate Hives and Verified 05/27/24 17:47 pruritus oxycodone [OXYCODONE] Allergy Intermediate HIVES Verified 05/27/24 17:47 Active Medications: Current Medications Acetaminophen (Acetaminophen 325 Mg Tablet) 650 mg PO Q6H PRN PRN Reason: Pain, Mild 1-3,fever,headache Last Admin: 05/31/24 22:40 Dose: 650 mg Calcium Carbonate (Calcium Carbonate 750 Mg Tab.Chew) 750 mg PO Q4H PRN PRN Reason: Heartburn Carvedilol (Carvedilol 25 Mg Tablet) 25 mg PO BID [facility]; Protocol Last Admin: 06/01/24 08:36 Dose: 25 mg Dexamethasone Sodium Phosphate (Dexamethasone Sod Phosphate 4 Mg/Ml Vial) 4 mg IVPUSH Q6H [facility] Last Admin: 06/01/24 08:36 Dose: 4 mg Dextrose (Dextrose 50 % 25 Gm/50 Ml Syringe) 25 gm IVPUSH Q15M PRN; Protocol PRN Reason: per Hypoglycemia Standing Ord. Diphenhydramine HCl (Diphenhydramine Hcl 25 Mg Capsule) 25 mg PO BID PRN PRN Reason: itchiness Docusate Sodium (Docusate Sodium 100 Mg Capsule) 100 mg PO DAILY PRN PRN Reason: Constipation Epoetin Natali-epbx (Epoetin Natali-Epbx 20,000 Unit/Ml Vial) 20,000 unit SUBCUT MOWEFR [facility] Last Admin: 05/31/24 11:52 Dose: 20,000 unit Glucose (Glucose Gel 15 Gm Gel..Gram.) 15 gm PO Q15M PRN; Protocol PRN Reason: per Hypoglycemia Standing Ord. Heparin Sodium (Porcine) (Heparin Sodium,Porcine 5,000 Unit/Ml Vial) 5,000 unit SUBCUT Q12H [facility] Last Admin: 06/01/24 03:35 Dose: 5,000 unit Piperacillin Sod/Tazobactam (Sod 2.25 gm/ Sodium Chloride) 50 mls @ 100 mls/hr IV Q8H [facility] Vancomycin HCl 1,250 mg/ (Sodium Chloride) 250 mls @ 166.667 mls/hr IV ONCE ONE Stop: 06/01/24 10:14 Insulin Human Lispro (Insulin Lispro 100 Unit/Ml 3 Ml Vial) 0 unit SUBCUT QIDACHS [facility]; Protocol Last Admin: 06/01/24 08:35 Dose: 6 unit Isosorbide Mononitrate (Isosorbide Mononitrate 30 Mg Tab.Er.24h) 30 mg PO DAILY [facility]; Protocol Last Admin: 06/01/24 08:36 Dose: 30 mg Lidocaine HCl (Lidocaine Hcl 1 % Mpf 2 Ml Vial) 0.5 ml SUBCUT MOWEFR@1645 [facility] Last Admin: 05/31/24 22:09 Dose: Not Given Loperamide HCl (Loperamide Hcl 2 Mg Capsule) 2 mg PO Q4H PRN PRN Reason: diarrhea Last Admin: 06/01/24 04:53 Dose: 2 mg Magnesium Hydroxide (Milk Of Magnesia 30 Ml Oral.Susp) 30 ml PO DAILY PRN PRN Reason: Constipation Magnesium Oxide (Magnesium Oxide 400 Mg Tablet) 400 mg PO BID [facility] Last Admin: 06/01/24 08:40 Dose: 400 mg Melatonin (Melatonin 3 Mg Tablet) 6 mg PO BEDTIME PRN PRN Reason: Insomnia Last Admin: 05/31/24 22:39 Dose: 6 mg Multivitamins/Vitamin C (Multivitamin Tablet) 1 tab PO DAILY [facility] Last Admin: 06/01/24 08:37 Dose: 1 tab Non-Formulary Medication ( Tacrolimus 1 Mg Tablet Extended Release 24 Hr) 8 mg PO DAILY [facility] Last Admin: 06/01/24 08:40 Dose: 8 mg Omeprazole (Omeprazole 20 Mg Capsule.Dr) 20 mg PO DAILY@0630 [facility] Last Admin: 06/01/24 05:02 Dose: 20 mg Ondansetron HCl (Ondansetron Hcl 4 Mg/2 Ml Vial) 4 mg IVPUSH Q8H PRN PRN Reason: Nausea and Vomiting Pharmacy Consult (Consult Rx Vancomycin Dosing) 1 each MISCELLANE DAILY PRN PRN Reason: Consult order Polyethylene Glycol (Polyethylene Glycol 3350 17 Gm Powd.Pack) 17 gm PO DAILY PRN PRN Reason: Constipation Sertraline HCl (Sertraline Hcl 25 Mg Tablet) 25 mg PO DAILY [facility] Last Admin: 06/01/24 08:36 Dose: 25 mg Sodium Bicarbonate (Sodium Bicarbonate 650 Mg Tablet) 1,300 mg PO BID [facility] Last Admin: 06/01/24 08:36 Dose: 1,300 mg Sodium Chloride (0.9 % Sodium Chloride Flush 3 Ml Syringe) 3 ml IVFLUSH QSHIFT [facility] Last Admin: 06/01/24 08:37 Dose: 3 ml Sucralfate (Sucralfate 1 Gm Tablet) 1 gm PO QIDAS [facility] Last Admin: 06/01/24 08:36 Dose: 1 gm Home Medications ?Medication ?Instructions ?Recorded ?Confirmed ?Last Taken ?Type acetaminophen 325 mg tablet 650 mg PO Q6H PRN Fever 04/07/24 05/28/24 Unknown History carvedilol 25 mg tablet 25 mg PO BID 04/07/24 05/28/24 Unknown History diphenhydramine HCl 25 mg tablet 25 mg PO BID PRN itchiness 04/07/24 05/28/24 Unknown History docusate sodium 100 mg capsule 100 mg PO BID PRN Constipation 04/07/24 05/28/24 Unknown History hydromorphone 4 mg tablet 4 mg PO Q4H PRN moderate to severe 04/07/24 05/28/24 Unknown History pain insulin lispro 200 unit/mL (3 mL) 2 - 10 sliding scale dose subcut 04/07/24 05/28/24 Unknown History subcutaneous pen TID isosorbide mononitrate 30 mg 30 mg PO DAILY 04/07/24 05/28/24 Unknown History tablet,extended release 24 hr pantoprazole 40 mg tablet,delayed 40 mg PO DAILY@0630 04/07/24 05/28/24 Unknown History release prednisone 2.5 mg tablet 7.5 mg PO DAILY 04/07/24 05/28/24 Unknown History sertraline 25 mg tablet 25 mg PO DAILY 04/07/24 05/28/24 Unknown History sodium bicarbonate 650 mg tablet 1,300 mg PO BID 04/07/24 05/28/24 Unknown History sucralfate 1 gram tablet 1 g PO QIDACHS 04/07/24 05/28/24 Unknown History epoetin natali 40,000 unit/mL 40,000 unit IV MO 05/28/24 Unknown History injection solution (Procrit) magnesium oxide 400 mg PO BID 05/28/24 05/28/24 Unknown History multivitamin 1 tab PO DAILY 05/28/24 05/28/24 Unknown History tacrolimus 4 mg tablet,extended 8 mg PO DAILY@0730 05/28/24 05/28/24 Unknown History release 24 hr Physical Exam 2 Vital Signs: Vital Signs: Last Vital Signs Temp 98.2 F 06/01/24 07:30 Pulse 68 06/01/24 07:30 Resp 20 06/01/24 07:30 BP 174/81 H 06/01/24 07:30 Pulse Ox 100 06/01/24 07:30 O2 Del Method Room Air 06/01/24 07:30 BMI result Body Mass Index 17.5 Const: General: no acute distress Orientation/consciousness: patient oriented x3 Eyes: EOM: EOMs intact bilaterally Neck: Neck: Yes supple Resp: Auscultation: diminished lung sounds Cardio: Rate: regular rate GI: Palpation (GI): Soft to palpation Skin: Lesions: lesion noted Wounds: wounds noted Neuro: General: patient oriented x3 Results Laboratory Findings 05/30/24 07:24 05/30/24 07:24 ABG, PT/INR, D-dimer: PT/INR, D-dimer PT 12.6 SEC (10.9-12.4) H 05/27/24 20:14 INR 1.1 (0.9-1.1) 05/27/24 20:14 Abnormal lab findings: Abnormal Labs 05/27/24 05/27/24 05/28/24 20:14 23:34 03:02 WBC 19.4 H RBC 3.08 L Hgb 8.4 L Hct 28.2 L MCHC 29.8 L RDW 17.8 H Immature Gran % (Auto) 1.5 H Neut % (Auto) 84.5 H Lymph % (Auto) 5.3 L Lymph # (Auto) 1.0 L Becker # (Auto) 1.6 H Abs Immat Gran (auto) 0.30 H Absolute Neuts (auto) 16.4 H Retic Hgb Equivalent 25.2 L PT 12.6 H Sodium 134 L Potassium 6.9 H* D 6.1 H* 6.1 H* BUN 53 H 50 H Creatinine 3.00 H 3.04 H POC Glucose Phosphorus 2.0 L Iron 19 L TIBC 87 L Ferritin 9043 H Troponin I High Sens 21.7 H Total Protein 0.4 L Albumin 2.7 L Urine Protein Urine Glucose (UA) Crossmatch 05/28/24 05/28/24 05/28/24 06:50 10:58 21:08 WBC 17.1 H RBC 2.81 L Hgb 7.7 L Hct 26.0 L MCHC 29.6 L RDW 17.4 H Immature Gran % (Auto) 1.8 H Neut % (Auto) 84.1 H Lymph % (Auto) 4.7 L Lymph # (Auto) 0.8 L Becker # (Auto) 1.5 H Abs Immat Gran (auto) 0.30 H Absolute Neuts (auto) 14.4 H Retic Hgb Equivalent PT Sodium Potassium 5.9 H BUN 53 H Creatinine 3.13 H POC Glucose 158 H 128 H Phosphorus Iron TIBC Ferritin Troponin I High Sens Total Protein Albumin 2.4 L Urine Protein Urine Glucose (UA) Crossmatch 05/29/24 05/29/24 05/29/24 07:55 09:06 11:23 WBC 14.5 H RBC 2.48 L Hgb 6.8 L* Hct 23.0 L MCHC 29.6 L RDW 17.4 H Immature Gran % (Auto) Neut % (Auto) Lymph % (Auto) Lymph # (Auto) Becker # (Auto) Abs Immat Gran (auto) Absolute Neuts (auto) Retic Hgb Equivalent PT Sodium Potassium BUN 22 H Creatinine 1.59 H POC Glucose 243 H Phosphorus Iron TIBC Ferritin Troponin I High Sens Total Protein Albumin Urine Protein Urine Glucose (UA) Crossmatch See Detail 05/29/24 05/29/24 05/30/24 16:19 21:33 07:24 WBC 13.3 H RBC 2.90 L Hgb 8.2 L D Hct 26.5 L MCHC 30.9 L RDW 16.7 H Immature Gran % (Auto) Neut % (Auto) Lymph % (Auto) Lymph # (Auto) Becker # (Auto) Abs Immat Gran (auto) Absolute Neuts (auto) Retic Hgb Equivalent PT Sodium Potassium BUN 33 H Creatinine 2.53 H POC Glucose 312 H 353 H* Phosphorus Iron TIBC Ferritin Troponin I High Sens Total Protein Albumin Urine Protein Urine Glucose (UA) Crossmatch 05/30/24 05/30/24 05/30/24 10:46 16:23 19:22 WBC RBC Hgb Hct MCHC RDW Immature Gran % (Auto) Neut % (Auto) Lymph % (Auto) Lymph # (Auto) Becker # (Auto) Abs Immat Gran (auto) Absolute Neuts (auto) Retic Hgb Equivalent PT Sodium Potassium BUN Creatinine POC Glucose 182 H 198 H 239 H Phosphorus Iron TIBC Ferritin Troponin I High Sens Total Protein Albumin Urine Protein Urine Glucose (UA) Crossmatch 05/31/24 05/31/24 05/31/24 07:06 11:30 16:01 WBC RBC Hgb Hct MCHC RDW Immature Gran % (Auto) Neut % (Auto) Lymph % (Auto) Lymph # (Auto) Becker # (Auto) Abs Immat Gran (auto) Absolute Neuts (auto) Retic Hgb Equivalent PT Sodium Potassium BUN Creatinine POC Glucose 276 H 276 H 237 H Phosphorus Iron TIBC Ferritin Troponin I High Sens Total Protein Albumin Urine Protein Urine Glucose (UA) Crossmatch 05/31/24 05/31/24 06/01/24 17:47 22:09 07:08 WBC RBC Hgb Hct MCHC RDW Immature Gran % (Auto) Neut % (Auto) Lymph % (Auto) Lymph # (Auto) Becker # (Auto) Abs Immat Gran (auto) Absolute Neuts (auto) Retic Hgb Equivalent PT Sodium Potassium BUN Creatinine POC Glucose 209 H 201 H Phosphorus Iron TIBC Ferritin Troponin I High Sens Total Protein Albumin Urine Protein 100 (2+) H Urine Glucose (UA) 250 H Crossmatch Microbiology: Microbiology 05/27/24 21:48 Blood - Venous Blood Culture - Preliminary No growth after 48 hours. 05/27/24 21:44 Blood - Venous Blood Culture - Preliminary No growth after 48 hours. Assessment and Plan (1) Pneumonia, community acquired: Qualifiers: Laterality: unspecified laterality Qualified Code(s): J18.9 - Pneumonia, unspecified organism Status: Acute (2) Mass of lung parenchyma: Status: Acute (3) Pleural effusion, right: Status: Acute Plan Braod spectrum antibiotics Bloodwork ECHO Fungal cultures wound cultures for GS and fungal CXR Procedures Date of Service Date of Service: 06/01/24
--- NOTE | 2024-06-01 08:57 | P.CDIM_ITS ---
PROVIDER RESPONSE TEXT: To clarify, the appropriate diagnosis supported by the clinical indicators: Pressure (decubitus) ulcer: see note QUERY TEXT: PHYSICIAN'S DOCUMENTATION REQUEST Date of Query: 06/01/2024 08:12 AM EST Patient Name: Alix Sharp Admit Date: 05/28/2024 Dear Ab Barba MD, A review of the medical record indicates additional documentation may be needed. Please review below and update the documentation accordingly. Clinical Indicators: Per Hospitalist Progress Note 05/31/24: stage 2 pressure injury foam dressing and protect from friction and moisture high protein diet Based on the above, could you please provide further information regarding the location of the ulcer/ wound: Pressure (decubitus) ulcer Please specify the location and laterality of the ulcer/wound Other (explain) Clinically unable to determine (explain) Thank you, Shirley Deleon RN Use of terms such as suspected, likely, concern for, or probable (associated with a specific diagnosi s that is being evaluated, monitored, or treated as if it exists) are acceptable and can be coded in the inpatient se tting, when documented at the time of discharge. Please use your independent medical judgment in providing your response. THIS QUERY IS PART OF THE PERMANENT MEDICAL RECORD
[2024-06-01 09:22] LABS: Adenovirus PCR Not Detected (Not Detect.); Bordetella parapertussis PCR Not Detected (Not Detect.); Bordetella pertussis PCR Not Detected (Not Detect.); Chlamydia pneumoniae PCR Not Detected (Not Detect.); Coronavirus 229E PCR Not Detected (Not Detect.); Coronavirus HKU1 PCR Not Detected (Not Detect.); Coronavirus NL63 PCR Not Detected (Not Detect.); Coronavirus OC43 PCR Not Detected (Not Detect.); Human metapneumovirus PCR Not Detected (Not Detect.); Influenza A PCR Not Detected (Not Detect.); Influenza B PCR Not Detected (Not Detect.); Mycoplasma pneumoniae PCR Not Detected (Not Detect.); Parainfluenza 1 PCR Not Detected (Not Detect.); Parainfluenza 2 PCR Not Detected (Not Detect.); Parainfluenza 3 PCR Not Detected (Not Detect.); Parainfluenza 4 PCR Not Detected (Not Detect.); RSV PCR Not Detected (Not Detect.); Rhino/Enterovirus PCR Not Detected (Not Detect.)
[2024-06-01 09:38] LABS: SARS-CoV-2 PCR Not Detected (Not Detect.)
[2024-06-01] MEDS: Piperacillin Sodium/Tazobactam 2.25 GM in 0.9 % Sodium Chloride 50 ML IV ×2 (09:59→17:31)
[2024-06-01 10:59] LABS: MRSA Nasal PCR NEGATIVE (Negative); SA Nasal PCR NEGATIVE (Negative)
[2024-06-01 11:10] LABS: Glucose, Whole Blood 307 mg/dL (60-115)
[2024-06-01 11:23] LABS: HIV AB/AG Nonreactive (Nonreactive); HIV Num 1 0.06 S/CO (0.00-0.99); ~HepC Num1 0.13 S/CO (0.00-0.79); ~Hepatitis C Antibody Nonreactive (Nonreactive)
[2024-06-01] MEDS: vancomycin HCL 1,250 MG in 0.9 % Sodium Chloride 250 ML 166.67 MG IV (11:33)
--- NOTE | 2024-06-01 12:04 | MHC.SL.SWA ---
Speech Pathologist Impression: Risk of Aspiration, Mild Oropharyngeal Dysphagia Dysphasia Diet Status:No Change Liquid Consistency and Strategies for Safe Swallow: Liquid Intake Recommendation: Thin Liquid Intake Strategies: Small Sips Solid Food Consistency: Dietary Recommendations: Chopped/Advanced (NDD3) Additional Modifications to Solid Foods: ACCESS SERVICES LIBRARIAN continues to recommend chopped/advanced diet (NDD3), permitting soft sandwiches (i.e. tuna salad, chicken salad, pb&j) as requested from the kitchenette. Patient prefers crusts removed. Patient demonstrates some impulsivity feeding herself (i.e. packing mouth, speaking with mouth full of food), and will need direct supervision and cues as needed for safe feeding strategies: take one bite, chew food well, clear oral cavity before taking next bite, alternate with sips of liquid. Oral Medication Intake: Whole with Liquid Please contact the pharmacy regarding appropriate crushable or liquid drug formulations that are available whenever modified delivery is recommended. Compensatory Strategies and Precautions to be Taken for Safe Swallow: Sitting Upright (90 deg) Small Bites and Sips Alternate Liquids/Solids Rate of Ingestion Change Oral Check Avoid Specific Foods Supervision While Eating and Drinking for Safe Swallow: Total Supervision (1:1) Foods to Avoid: Avoid overly tough, hard to chew solids Swallowing Recommended Treatments: Compens. Strategy Educat. Recommendation for Speech: Inpatient Speech Therapy Tornado Chaser Clinican/Clinical Fellow: No Supervisory Statement: I have reviewed and agree with the student/clinical fellow's documentation: N/A Speech Language Pathologist: Vannessa Pham M.A., [facility]-[employer]IAN
--- NOTE | 2024-06-01 14:26 | P.PNNP_ITS ---
Subjective Subjective Date of Service: 06/01/24 Interval history: no shortness of breath, no headache, no dizziness, tolerating diet no nausea vomiting, no fevers, no chills. For HD tomorrow Physical Exam 2 Vital Signs: Vital Signs: Last Vital Signs Temp 97.5 F 06/01/24 11:14 Pulse 57 06/01/24 11:14 Resp 18 06/01/24 11:14 BP 158/72 H 06/01/24 11:14 Pulse Ox 100 06/01/24 11:14 O2 Del Method Room Air 06/01/24 11:14 BMI result Body Mass Index 17.5 Const: General: no acute distress Eyes: EOM: EOMs intact bilaterally Resp: Auscultation: diminished lung sounds Cardio: Rate: regular rate GI: Palpation (GI): Soft to palpation Neuro: General: moves all extremities Objective Data Labs 05/30/24 07:24 05/30/24 07:24 Labs: Laboratory Results - last 24 hr 05/28/24 05/28/24 05/28/24 03:02 06:50 10:02 WBC 17.1 H RBC 2.81 L Hgb 7.7 L Hct 26.0 L MCV 92.5 MCH 27.4 MCHC 29.6 L RDW 17.4 H Plt Count 320 MPV 10.2 Immature Gran % (Auto) 1.8 H Neut % (Auto) 84.1 H Lymph % (Auto) 4.7 L [place] % (Auto) 8.9 Eos % (Auto) 0.2 Baso % (Auto) 0.3 Lymph # (Auto) 0.8 L [place] # (Auto) 1.5 H Eos # (Auto) 0.0 Baso # (Auto) 0.1 Abs Immat Gran (auto) 0.30 H Absolute Neuts (auto) 14.4 H Absolute Nucleated RBC 0.000 Nucleated RBC % (auto) 0.0 Smear Tech's Comments VERIFIED Absolute Retic 0.034 Percent Retic 1.2 Immature Retic Fraction 11.1 Retic Hgb Equivalent 25.2 L POC Glucose 114 Urine Color Urine Appearance Urine pH Ur Specific [place] Urine Protein Urine Glucose (UA) Urine Ketones Urine Blood Urine Nitrite Ur Leukocyte Esterase Urine RBC Urine WBC Ur Squamous Epith Cells Calcium Oxalate Crystal Urine Bacteria Hyaline Casts Nasal Screen MRSA (PCR) Nasal S. aureus Screen Nasal MRSA/S.aureus Interp Respiratory Panel Davila Adenovirus (Rapid PCR) B.pert (TEM-PCR) B.parapertussis DNA PCR C. pneumoniae DNA (PCR) Coronavirus OC43 (PCR) Coronavirus HKU1 (PCR) Coronavirus 229E (PCR) Coronavirus NL63 (PCR) Hepatitis C Ab (EIA) HIV 1&2 Ab/P24 Ag 4thGn Human Metapneumovir PCR Influenza A (RT-PCR) Influenza B (RT-PCR) M. pneumoniae (PCR) Parainfluenza 1 (PCR) Parainfluenza 2 (PCR) Parainfluenza 3 (PCR) Parainfluenza 4 (PCR) RSV (PCR) Entero/Rhino (PCR) SARS-CoV-2 RNA (RT-PCR) 05/28/24 05/28/24 05/28/24 10:58 15:28 21:08 WBC RBC Hgb Hct MCV MCH MCHC RDW Plt Count MPV Immature Gran % (Auto) Neut % (Auto) Lymph % (Auto) [place] % (Auto) Eos % (Auto) Baso % (Auto) Lymph # (Auto) [place] # (Auto) Eos # (Auto) Baso # (Auto) Abs Immat Gran (auto) Absolute Neuts (auto) Absolute Nucleated RBC Nucleated RBC % (auto) Smear Tech's Comments Absolute Retic Percent Retic Immature Retic Fraction Retic Hgb Equivalent POC Glucose 158 H 93 128 H Urine Color Urine Appearance Urine pH Ur Specific [place] Urine Protein Urine Glucose (UA) Urine Ketones Urine Blood Urine Nitrite Ur Leukocyte Esterase Urine RBC Urine WBC Ur Squamous Epith Cells Calcium Oxalate Crystal Urine Bacteria Hyaline Casts Nasal Screen MRSA (PCR) Nasal S. aureus Screen Nasal MRSA/S.aureus Interp Respiratory Panel Davila Adenovirus (Rapid PCR) B.pert (TEM-PCR) B.parapertussis DNA PCR C. pneumoniae DNA (PCR) Coronavirus OC43 (PCR) Coronavirus HKU1 (PCR) Coronavirus 229E (PCR) Coronavirus NL63 (PCR) Hepatitis C Ab (EIA) HIV 1&2 Ab/P24 Ag 4thGn Human Metapneumovir PCR Influenza A (RT-PCR) Influenza B (RT-PCR) M. pneumoniae (PCR) Parainfluenza 1 (PCR) Parainfluenza 2 (PCR) Parainfluenza 3 (PCR) Parainfluenza 4 (PCR) RSV (PCR) Entero/Rhino (PCR) SARS-CoV-2 RNA (RT-PCR) 05/31/24 05/31/24 05/31/24 16:01 16:45 17:05 WBC RBC Hgb Hct MCV MCH MCHC RDW Plt Count MPV Immature Gran % (Auto) Neut % (Auto) Lymph % (Auto) [place] % (Auto) Eos % (Auto) Baso % (Auto) Lymph # (Auto) [place] # (Auto) Eos # (Auto) Baso # (Auto) Abs Immat Gran (auto) Absolute Neuts (auto) Absolute Nucleated RBC Nucleated RBC % (auto) Smear Tech's Comments Absolute Retic Percent Retic Immature Retic Fraction Retic Hgb Equivalent POC Glucose 237 H Urine Color Urine Appearance Urine pH Ur Specific [place] Urine Protein Urine Glucose (UA) Urine Ketones Urine Blood Urine Nitrite Ur Leukocyte Esterase Urine RBC Urine WBC Ur Squamous Epith Cells Calcium Oxalate Crystal Urine Bacteria Hyaline Casts Nasal Screen MRSA (PCR) NEGATIVE Nasal S. aureus Screen NEGATIVE Nasal MRSA/S.aureus Interp SEE NOTE Respiratory Panel Davila See Note Adenovirus (Rapid PCR) Not Detected B.pert (TEM-PCR) Not Detected B.parapertussis DNA PCR Not Detected C. pneumoniae DNA (PCR) Not Detected Coronavirus OC43 (PCR) Not Detected Coronavirus HKU1 (PCR) Not Detected Coronavirus 229E (PCR) Not Detected Coronavirus NL63 (PCR) Not Detected Hepatitis C Ab (EIA) HIV 1&2 Ab/P24 Ag 4thGn Nonreactive Human Metapneumovir PCR Not Detected Influenza A (RT-PCR) Not Detected Influenza B (RT-PCR) Not Detected M. pneumoniae (PCR) Not Detected Parainfluenza 1 (PCR) Not Detected Parainfluenza 2 (PCR) Not Detected Parainfluenza 3 (PCR) Not Detected Parainfluenza 4 (PCR) Not Detected RSV (PCR) Not Detected Entero/Rhino (PCR) Not Detected SARS-CoV-2 RNA (RT-PCR) Not Detected 05/31/24 05/31/24 06/01/24 17:47 22:09 07:08 WBC RBC Hgb Hct MCV MCH MCHC RDW Plt Count MPV Immature Gran % (Auto) Neut % (Auto) Lymph % (Auto) [place] % (Auto) Eos % (Auto) Baso % (Auto) Lymph # (Auto) [place] # (Auto) Eos # (Auto) Baso # (Auto) Abs Immat Gran (auto) Absolute Neuts (auto) Absolute Nucleated RBC Nucleated RBC % (auto) Smear Tech's Comments Absolute Retic Percent Retic Immature Retic Fraction Retic Hgb Equivalent POC Glucose 209 H 201 H Urine Color Yellow Urine Appearance Clear Urine pH 8.0 Ur Specific [place] 1.025 Urine Protein 100 (2+) H Urine Glucose (UA) 250 H Urine Ketones Negative Urine Blood Negative Urine Nitrite Negative Ur Leukocyte Esterase Negative Urine RBC 0-2 Urine WBC 0-5 Ur Squamous Epith Cells 0-2 Calcium Oxalate Crystal Present Urine Bacteria None Seen Hyaline Casts 3-5 Nasal Screen MRSA (PCR) Nasal S. aureus Screen Nasal MRSA/S.aureus Interp Respiratory Panel [place] Adenovirus (Rapid PCR) B.pert (TEM-PCR) B.parapertussis DNA PCR C. pneumoniae DNA (PCR) Coronavirus OC43 (PCR) Coronavirus HKU1 (PCR) Coronavirus 229E (PCR) Coronavirus NL63 (PCR) Hepatitis C Ab (EIA) HIV 1&2 Ab/P24 Ag 4thGn Human Metapneumovir PCR Influenza A (RT-PCR) Influenza B (RT-PCR) M. pneumoniae (PCR) Parainfluenza 1 (PCR) Parainfluenza 2 (PCR) Parainfluenza 3 (PCR) Parainfluenza 4 (PCR) RSV (PCR) Entero/Rhino (PCR) SARS-CoV-2 RNA (RT-PCR) 06/01/24 06/01/24 10:23 10:53 WBC RBC Hgb Hct MCV MCH MCHC RDW Plt Count MPV Immature Gran % (Auto) Neut % (Auto) Lymph % (Auto) [place] % (Auto) Eos % (Auto) Baso % (Auto) Lymph # (Auto) [place] # (Auto) Eos # (Auto) Baso # (Auto) Abs Immat Gran (auto) Absolute Neuts (auto) Absolute Nucleated RBC Nucleated RBC % (auto) Smear Tech's Comments Absolute Retic Percent Retic Immature Retic Fraction Retic Hgb Equivalent POC Glucose 307 H Urine Color Urine Appearance Urine pH Ur Specific [place] Urine Protein Urine Glucose (UA) Urine Ketones Urine Blood Urine Nitrite Ur Leukocyte Esterase Urine RBC Urine WBC Ur Squamous Epith Cells Calcium Oxalate Crystal Urine Bacteria Hyaline Casts Nasal Screen MRSA (PCR) Nasal S. aureus Screen Nasal MRSA/S.aureus Interp Respiratory Panel [place] Adenovirus (Rapid PCR) B.pert (TEM-PCR) B.parapertussis DNA PCR C. pneumoniae DNA (PCR) Coronavirus OC43 (PCR) Coronavirus HKU1 (PCR) Coronavirus 229E (PCR) Coronavirus NL63 (PCR) Hepatitis C Ab (EIA) Nonreactive HIV 1&2 Ab/P24 Ag 4thGn Nonreactive Human Metapneumovir PCR Influenza A (RT-PCR) Influenza B (RT-PCR) M. pneumoniae (PCR) Parainfluenza 1 (PCR) Parainfluenza 2 (PCR) Parainfluenza 3 (PCR) Parainfluenza 4 (PCR) RSV (PCR) Entero/Rhino (PCR) SARS-CoV-2 RNA (RT-PCR) Microbiology Microbiology Results: Microbiology 05/27/24 21:48 Blood - Venous Blood Culture - Preliminary No growth after 48 hours. 05/27/24 21:44 Blood - Venous Blood Culture - Preliminary No growth after 48 hours. Procedures Date of Service Date of Service: 06/01/24 Assessment & Plan Assessment and plan (1) ESRD (end stage renal disease) on dialysis: Status: Acute Plan Usually gets HD on MWF Shall dialyze tomorrow Has a functioning AVF Low Na/K diet with fluid restriction Procrit [id number] MWF to keep Hb ~ 10 Continue rest of current management for now Progress Note: Quality Stroke Does the patient have a stroke diagnosis?: No
--- NOTE | 2024-06-01 14:28 | P.CONGS_ITS ---
History of Present Illness Consult details Consult date: 06/01/24 <Lilian Gibbons PA-C - Last Filed: 06/01/24 14:43> Requesting physician: Ab Barba <Lilian Gibbons PA-C - Last Filed: 06/01/24 14:43> Narrative: 64 year old female with PMH of ESRD on HD MWF, hypertension, hyperlipidemia, HFrEF, T2DM, GERD with esophagitis who initially presented to the ED with multiple complaints including feeling generally unwell with headaches, shortness of breath and mild abdominal pain. She was found to be febrile due to PNA and developed LUE/LLE weakness. MRI showed peripherally enhancing nodules within the right thalamus, left parietal lobe and at the right temporo-occipital junction maybe secondary to metastatic disease or an inflammatory/infectious process. CT chest showed spiculated soft tissue masses both lungs largest in the right middle lobe laterally and posterior right upper lobe, necrotic appearing pleural based lesions right hemithorax. Prior pleural fluid studies from 04/09/2024 was negative for malignant cells. Pulmolony was consulted who felt this was more of an infectious etiology. She has multiple skin nodules on her extremities and general surgery was consulted for I&D of her right thigh nodule/collection with routine and fungal culture. She reports having these for a while, they are some what painful. A few have opened spontaneously without significant drainage. 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) Kidney transplant status History of appendectomy H/O cardiac catheterization <Lilian Gibbons PA-C - Last Filed: 06/01/24 14:43> Social History Social History: Social History Household Members: Spouse Housing: House Do you presently have visiting nurse or other home services: Yes Alcohol intake: never Comment: patient is bedbound at this time Patient Tobacco Use Status: Never used Tobacco service: Yes <Lilian Gibbons PA-C - Last Filed: 06/01/24 14:43> Meds Allergies/Adverse reactions: Allergies Allergy/AdvReac Type Severity Reaction Status Date / Time codeine [CODEINE] Allergy Intermediate Hives and Verified 05/27/24 17:47 pruritus oxycodone [OXYCODONE] Allergy Intermediate HIVES Verified 05/27/24 17:47 <Lilian Gibbons PA-C - Last Filed: 06/01/24 14:43> Active Medications: Current Medications Acetaminophen (Acetaminophen 325 Mg Tablet) 650 mg PO Q6H PRN PRN Reason: Pain, Mild 1-3,fever,headache Last Admin: 05/31/24 22:40 Dose: 650 mg Calcium Carbonate (Calcium Carbonate 750 Mg Tab.Chew) 750 mg PO Q4H PRN PRN Reason: Heartburn Carvedilol (Carvedilol 25 Mg Tablet) 25 mg PO BID LIVIER; Protocol Last Admin: 06/01/24 08:36 Dose: 25 mg Dexamethasone Sodium Phosphate (Dexamethasone Sod Phosphate 4 Mg/Ml Vial) 4 mg IVPUSH Q6H LIVIER Last Admin: 06/01/24 08:36 Dose: 4 mg Dextrose (Dextrose 50 % 25 Gm/50 Ml Syringe) 25 gm IVPUSH Q15M PRN; Protocol PRN Reason: per Hypoglycemia Standing Ord. Diphenhydramine HCl (Diphenhydramine Hcl 25 Mg Capsule) 25 mg PO BID PRN PRN Reason: itchiness Docusate Sodium (Docusate Sodium 100 Mg Capsule) 100 mg PO DAILY PRN PRN Reason: Constipation Epoetin Natali-epbx (Epoetin Natali-Epbx 20,000 Unit/Ml Vial) 20,000 unit SUBCUT MOWEFR [facility] Last Admin: 05/31/24 11:52 Dose: 20,000 unit Glucose (Glucose Gel 15 Gm Gel..Gram.) 15 gm PO Q15M PRN; Protocol PRN Reason: per Hypoglycemia Standing Ord. Heparin Sodium (Porcine) (Heparin Sodium,Porcine 5,000 Unit/Ml Vial) 5,000 unit SUBCUT Q12H [facility] Last Admin: 06/01/24 03:35 Dose: 5,000 unit Piperacillin Sod/Tazobactam (Sod 2.25 gm/ Sodium Chloride) 50 mls @ 100 mls/hr IV Q8H [facility] Last Infusion: 06/01/24 12:26 Dose: Infused Insulin Human Lispro (Insulin Lispro 100 Unit/Ml 3 Ml Vial) 0 unit SUBCUT QIDACHS [facility]; Protocol Last Admin: 06/01/24 11:34 Dose: 10 unit Isosorbide Mononitrate (Isosorbide Mononitrate 30 Mg Tab.Er.24h) 30 mg PO DAILY [facility]; Protocol Last Admin: 06/01/24 08:36 Dose: 30 mg Lidocaine HCl (Lidocaine Hcl 1 % Mpf 2 Ml Vial) 0.5 ml SUBCUT MOWEFR@1645 [facility] Last Admin: 05/31/24 22:09 Dose: Not Given Loperamide HCl (Loperamide Hcl 2 Mg Capsule) 2 mg PO Q4H PRN PRN Reason: diarrhea Last Admin: 06/01/24 04:53 Dose: 2 mg Magnesium Hydroxide (Milk Of Magnesia 30 Ml Oral.Susp) 30 ml PO DAILY PRN PRN Reason: Constipation Magnesium Oxide (Magnesium Oxide 400 Mg Tablet) 400 mg PO BID [facility] Last Admin: 06/01/24 08:40 Dose: 400 mg Melatonin (Melatonin 3 Mg Tablet) 6 mg PO BEDTIME PRN PRN Reason: Insomnia Last Admin: 05/31/24 22:39 Dose: 6 mg Multivitamins/Vitamin C (Multivitamin Tablet) 1 tab PO DAILY [facility] Last Admin: 06/01/24 08:37 Dose: 1 tab Non-Formulary Medication ( Tacrolimus 1 Mg Tablet Extended Release 24 Hr) 8 mg PO DAILY [facility] Last Admin: 06/01/24 08:40 Dose: 8 mg Omeprazole (Omeprazole 20 Mg Capsule.Dr) 20 mg PO DAILY@0630 [facility] Last Admin: 06/01/24 05:02 Dose: 20 mg Ondansetron HCl (Ondansetron Hcl 4 Mg/2 Ml Vial) 4 mg IVPUSH Q8H PRN PRN Reason: Nausea and Vomiting Pharmacy Consult (Consult Rx Vancomycin Dosing) 1 each MISCELLANE DAILY PRN PRN Reason: Consult order Polyethylene Glycol (Polyethylene Glycol 3350 17 Gm Powd.Pack) 17 gm PO DAILY PRN PRN Reason: Constipation Sertraline HCl (Sertraline Hcl 25 Mg Tablet) 25 mg PO DAILY [facility] Last Admin: 06/01/24 08:36 Dose: 25 mg Sodium Bicarbonate (Sodium Bicarbonate 650 Mg Tablet) 1,300 mg PO BID [facility] Last Admin: 06/01/24 08:36 Dose: 1,300 mg Sodium Chloride (0.9 % Sodium Chloride Flush 3 Ml Syringe) 3 ml IVFLUSH QSHIFT [facility] Last Admin: 06/01/24 08:37 Dose: 3 ml Sucralfate (Sucralfate 1 Gm Tablet) 1 gm PO QIDACHS [facility] Last Admin: 06/01/24 11:33 Dose: 1 gm <Lilian Gibbons PA-C - Last Filed: 06/01/24 14:43> Home medications: Home Medications ?Medication ?Instructions ?Recorded ?Confirmed ?Last Taken ?Type acetaminophen 325 mg tablet 650 mg PO Q6H PRN Fever 04/07/24 05/28/24 Unknown History carvedilol 25 mg tablet 25 mg PO BID 04/07/24 05/28/24 Unknown History diphenhydramine HCl 25 mg tablet 25 mg PO BID PRN itchiness 04/07/24 05/28/24 Unknown History docusate sodium 100 mg capsule 100 mg PO BID PRN Constipation 04/07/24 05/28/24 Unknown History hydromorphone 4 mg tablet 4 mg PO Q4H PRN moderate to severe 04/07/24 05/28/24 Unknown History pain insulin lispro 200 unit/mL (3 mL) 2 - 10 sliding scale dose subcut 04/07/24 05/28/24 Unknown History subcutaneous pen TID isosorbide mononitrate 30 mg 30 mg PO DAILY 04/07/24 05/28/24 Unknown History tablet,extended release 24 hr pantoprazole 40 mg tablet,delayed 40 mg PO DAILY@0630 04/07/24 05/28/24 Unknown History release prednisone 2.5 mg tablet 7.5 mg PO DAILY 04/07/24 05/28/24 Unknown History sertraline 25 mg tablet 25 mg PO DAILY 04/07/24 05/28/24 Unknown History sodium bicarbonate 650 mg tablet 1,300 mg PO BID 04/07/24 05/28/24 Unknown History sucralfate 1 gram tablet 1 g PO QIDACHS 04/07/24 05/28/24 Unknown History epoetin natali 40,000 unit/mL 40,000 unit IV MO 05/28/24 Unknown History injection solution (Procrit) magnesium oxide 400 mg PO BID 05/28/24 05/28/24 Unknown History multivitamin 1 tab PO DAILY 05/28/24 05/28/24 Unknown History tacrolimus 4 mg tablet,extended 8 mg PO DAILY@0730 05/28/24 05/28/24 Unknown History release 24 hr <Lilian Gibbons PA-C - Last Filed: 06/01/24 14:43> Physical Exam 2 Vital Signs: Vital Signs: Last Vital Signs Temp 97.5 F 06/01/24 11:14 Pulse 57 06/01/24 11:14 Resp 18 06/01/24 11:14 BP 158/72 H 06/01/24 11:14 Pulse Ox 100 06/01/24 11:14 O2 Del Method Room Air 06/01/24 11:14 BMI result Body Mass Index 17.5 <HEMANTH Kiran Last Filed: 06/01/24 14:43> Const: General: comfortable, no acute distress and alert <HEMANTH Kiran Last Filed: 06/01/24 14:43> Nutritional Appearance: thin <HEMANTH Kiran Last Filed: 06/01/24 14:43> Resp: Effort & Inspection: normal respiratory effort <HEMANTH Kiran Last Filed: 06/01/24 14:43> Skin: Other: multiple skin nodules throughout upper and lower extremities, a few have spontaneously opened; right mid thigh with 1.5cm fluctuance no surrounding erythema or edema, mildly tender <Lilian Gibbons PA-C - Last Filed: 06/01/24 14:43> Results Labs Result diagrams: 06/03/24 07:24 06/03/24 07:24 <Lilian Gibbons PA-C - Last Filed: 06/01/24 14:43> Labs: Abnormal lab results 05/28/24 05/28/24 05/28/24 Range/Units 03:02 06:50 10:58 WBC 17.1 H (4.8-10.8) X10*3/uL RBC 2.81 L (4.20-5.50) X10*6/uL Hgb 7.7 L (12.0-16.0) g/dl Hct 26.0 L (37.0-47.0) % MCHC 29.6 L (31.0-35.0) g/dl RDW 17.4 H (11.0-16.0) % Immature Gran % (Auto) 1.8 H (0.0-0.4) % Neut % (Auto) 84.1 H (45-73) % Lymph % (Auto) 4.7 L (20-40) % Lymph # (Auto) 0.8 L (1.2-4.9) X10*3/uL [place] # (Auto) 1.5 H (0.1-1.2) X10*3/uL Abs Immat Gran (auto) 0.30 H (0.00-0.03) X10*3/uL Absolute Neuts (auto) 14.4 H (2.0-8.3) x10*3/uL Retic Hgb Equivalent 25.2 L (30.0-35.0) pg POC Glucose 158 H (60-115) mg/dL Urine Protein (Neg-Trace) mg/dL Urine Glucose (UA) (Negative) mg/dL 05/28/24 05/31/24 05/31/24 Range/Units 21:08 16:01 17:47 WBC (4.8-10.8) X10*3/uL RBC (4.20-5.50) X10*6/uL Hgb (12.0-16.0) g/dl Hct (37.0-47.0) % MCHC (31.0-35.0) g/dl RDW (11.0-16.0) % Immature Gran % (Auto) (0.0-0.4) % Neut % (Auto) (45-73) % Lymph % (Auto) (20-40) % Lymph # (Auto) (1.2-4.9) X10*3/uL [place] # (Auto) (0.1-1.2) X10*3/uL Abs Immat Gran (auto) (0.00-0.03) X10*3/uL Absolute Neuts (auto) (2.0-8.3) x10*3/uL Retic Hgb Equivalent (30.0-35.0) pg POC Glucose 128 H 237 H (60-115) mg/dL Urine Protein 100 (2+) H (Neg-Trace) mg/dL Urine Glucose (UA) 250 H (Negative) mg/dL 05/31/24 06/01/24 06/01/24 Range/Units 22:09 07:08 10:53 WBC (4.8-10.8) X10*3/uL RBC (4.20-5.50) X10*6/uL Hgb (12.0-16.0) g/dl Hct (37.0-47.0) % MCHC (31.0-35.0) g/dl RDW (11.0-16.0) % Immature Gran % (Auto) (0.0-0.4) % Neut % (Auto) (45-73) % Lymph % (Auto) (20-40) % Lymph # (Auto) (1.2-4.9) X10*3/uL [place] # (Auto) (0.1-1.2) X10*3/uL Abs Immat Gran (auto) (0.00-0.03) X10*3/uL Absolute Neuts (auto) (2.0-8.3) x10*3/uL Retic Hgb Equivalent (30.0-35.0) pg POC Glucose 209 H 201 H 307 H (60-115) mg/dL Urine Protein (Neg-Trace) mg/dL Urine Glucose (UA) (Negative) mg/dL Short CBC 05/28/24 Range/Units 06:50 WBC 17.1 H (4.8-10.8) X10*3/uL Hgb 7.7 L (12.0-16.0) g/dl Hct 26.0 L (37.0-47.0) % Plt Count 320 (160-400) X10*3/uL Urine 05/31/24 Range/Units 17:47 Urine Color Yellow Urine Appearance Clear Urine pH 8.0 (5.0-9.0) Ur Specific [place] 1.025 (1.005-1.025) Urine Protein 100 (2+) H (Neg-Trace) mg/dL Urine Glucose (UA) 250 H (Negative) mg/dL All other labs normal. <Lilian Gibbons PA-C - Last Filed: 06/01/24 14:43> Assessment and Plan (1) Mass of lung parenchyma: Status: Acute <Lilian Gibbons PA-C - Last Filed: 06/01/24 14:43> (2) Weakness: Status: Acute <Lilian Gibbons PA-C - Last Filed: 06/01/24 14:43> 64 year old female with PMH of ESRD on HD MWF, hypertension, hyperlipidemia, HFrEF, T2DM, GERD with esophagitis initially admitted with PNA and subsequently developed LUE/LLE weakness found to have multiple brain and lung nodules. Pulmonology felt this was more infectious etiology and recommended I&D of skin nodules with cultures. Informed consent was obtained to proceed with I&D of her right mid thigh mass at bedside. Patient was placed in supine position with her right leg frog legged. The site of procedure was confirmed by the patient. After assuring informed consent, the skin was prepped with betadine. 10cc 1% lidocaine was then infiltrated over the central portion of the fluctuance. An incision was made with an 11 blade measuring approximately 1 cm the same location. This was deepened into the subcutaneous tissue. A pocket was identified and a small amount of thick sebum appearing fluid was evacuated. A culture was obtained and sent for routine and fungal. The area was then probed with a qtip to ensure any loculations were broken up and the entire collection was drained. No further fluctuance was appreciated. Pressure was held with sterile gauze until hemostasis ensured and dry dressing placed. The patient tolerated the procedure very well. <Lilian Gibbons PA-C - Last Filed: 06/01/24 14:43> 64 year old female with PMH of ESRD on HD MWF, hypertension, hyperlipidemia, HFrEF, T2DM, GERD with esophagitis initially admitted with PNA and subsequently developed LUE/LLE weakness found to have multiple brain and lung nodules. Pulmonology felt this was more infectious etiology and recommended I&D of skin nodules with cultures. Informed consent was obtained to proceed with I&D of her right mid thigh mass at bedside. Patient was placed in supine position with her right leg frog legged. The site of procedure was confirmed by the patient. After assuring informed consent, the skin was prepped with betadine. 10cc 1% lidocaine was then infiltrated over the central portion of the fluctuance. An incision was made with an 11 blade measuring approximately 1 cm the same location. This was deepened into the subcutaneous tissue. A pocket was identified and a small amount of thick sebum appearing fluid was evacuated. A culture was obtained and sent for routine and fungal. The area was then probed with a qtip to ensure any loculations were broken up and the entire collection was drained. No further fluctuance was appreciated. Pressure was held with sterile gauze until hemostasis ensured and dry dressing placed. The patient tolerated the procedure very well. Agree with above seen and examined independently <Lv Toussaint MD - Last Filed: 06/03/24 14:19> Procedures Date of Service Date of Service: 06/01/24 <Lilian Gibbons PA-C - Last Filed: 06/01/24 14:43> 06/03/24 <Lv Toussaint MD - Last Filed: 06/03/24 14:19>
--- NOTE | 2024-06-01 15:36 | P.PNIM_ITS ---
Subjective Subjective Date of Service: 06/01/24 Interval History: Being followed for left upper and lower extremity weakness, denies worsening symptoms, denies fever, no chills, no other acute issues overnight. Review of Systems All other system reviewed and are negative Physical Exam 2 Vital Signs: Vital Signs: Last Vital Signs Temp 97.5 F 06/01/24 11:14 Pulse 57 06/01/24 11:14 Resp 18 06/01/24 11:14 BP 158/72 H 06/01/24 11:14 Pulse Ox 100 06/01/24 11:14 O2 Del Method Room Air 06/01/24 11:14 BMI result Body Mass Index 17.5 Const: Other: Gen: Resting comfortably sitting on chair in no acute distress, muscle wasting HEENT: sclera anicteric, moist mucus membranes Neck: supple, no JVD Lungs: Clear, diminished Heart: regular rate and rhythm, no murmurs Abd: soft, non-tender, non-distended Ext: no edema Skin: warm/well-perfused, multiple skin nodules, 1.5 cm right medial thigh nodule with no surrounding erythema or fluctuation, mild tenderness Neuro: alert and oriented x3, LUE and LLE with 3/5 strength, face symmetrical Psych: appropriate affect Objective Data Active Medications Acetaminophen (Acetaminophen 325 Mg Tablet) 650 mg PO Q6H PRN PRN Reason: Pain, Mild 1-3,fever,headache Last Admin: 05/31/24 22:40 Dose: 650 mg Documented By: CECELIA Calcium Carbonate (Calcium Carbonate 750 Mg Tab.Chew) 750 mg PO Q4H PRN PRN Reason: Heartburn Carvedilol (Carvedilol 25 Mg Tablet) 25 mg PO BID [facility]; Protocol Last Admin: 06/01/24 08:36 Dose: 25 mg Documented By: HENRIK Dexamethasone Sodium Phosphate (Dexamethasone Sod Phosphate 4 Mg/Ml Vial) 4 mg IVPUSH Q6H [facility] Last Admin: 06/01/24 08:36 Dose: 4 mg Documented By: HENRIK Dextrose (Dextrose 50 % 25 Gm/50 Ml Syringe) 25 gm IVPUSH Q15M PRN; Protocol PRN Reason: per Hypoglycemia Standing Ord. Diphenhydramine HCl (Diphenhydramine Hcl 25 Mg Capsule) 25 mg PO BID PRN PRN Reason: itchiness Docusate Sodium (Docusate Sodium 100 Mg Capsule) 100 mg PO DAILY PRN PRN Reason: Constipation Epoetin Bassem-epbx (Epoetin Bassem-Epbx 20,000 Unit/Ml Vial) 20,000 unit SUBCUT MOWEFR [facility] Last Admin: 05/31/24 11:52 Dose: 20,000 unit Documented By: RAMON Glucose (Glucose Gel 15 Gm Gel..Gram.) 15 gm PO Q15M PRN; Protocol PRN Reason: per Hypoglycemia Standing Ord. Heparin Sodium (Porcine) (Heparin Sodium,Porcine 5,000 Unit/Ml Vial) 5,000 unit SUBCUT Q12H [facility] Last Admin: 06/01/24 03:35 Dose: 5,000 unit Documented By: CECELIA Piperacillin Sod/Tazobactam (Sod 2.25 gm/ Sodium Chloride) 50 mls @ 100 mls/hr IV Q8H [facility] Last Infusion: 06/01/24 12:26 Dose: Infused Documented By: HENRIK Insulin Human Lispro (Insulin Lispro 100 Unit/Ml 3 Ml Vial) 0 unit SUBCUT QIDACHS [facility]; Protocol Last Admin: 06/01/24 11:34 Dose: 10 unit Documented By: HENRIK Isosorbide Mononitrate (Isosorbide Mononitrate 30 Mg Tab.Er.24h) 30 mg PO DAILY [facility]; Protocol Last Admin: 06/01/24 08:36 Dose: 30 mg Documented By: HENRIK Lidocaine HCl (Lidocaine Hcl 1 % Mpf 2 Ml Vial) 0.5 ml SUBCUT MOWEFR@1645 [facility] Last Admin: 05/31/24 22:09 Dose: Not Given Documented By: CECELIA Non-Admin Reason: given in dialysis Loperamide HCl (Loperamide Hcl 2 Mg Capsule) 2 mg PO Q4H PRN PRN Reason: diarrhea Last Admin: 06/01/24 04:53 Dose: 2 mg Documented By: CECELIA Magnesium Hydroxide (Milk Of Magnesia 30 Ml Oral.Susp) 30 ml PO DAILY PRN PRN Reason: Constipation Magnesium Oxide (Magnesium Oxide 400 Mg Tablet) 400 mg PO BID [facility] Last Admin: 06/01/24 08:40 Dose: 400 mg Documented By: HENRIK Melatonin (Melatonin 3 Mg Tablet) 6 mg PO BEDTIME PRN PRN Reason: Insomnia Last Admin: 05/31/24 22:39 Dose: 6 mg Documented By: CECELIA Multivitamins/Vitamin C (Multivitamin Tablet) 1 tab PO DAILY [facility] Last Admin: 06/01/24 08:37 Dose: 1 tab Documented By: HENRIK Non-Formulary Medication ( Tacrolimus 1 Mg Tablet Extended Release 24 Hr) 8 mg PO DAILY [facility] Last Admin: 06/01/24 08:40 Dose: 8 mg Documented By: HENRIK Omeprazole (Omeprazole 20 Mg Capsule.) 20 mg PO DAILY@0630 [facility] Last Admin: 06/01/24 05:02 Dose: 20 mg Documented By: CECELIA Ondansetron HCl (Ondansetron Hcl 4 Mg/2 Ml Vial) 4 mg IVPUSH Q8H PRN PRN Reason: Nausea and Vomiting Pharmacy Consult (Consult Rx Vancomycin Dosing) 1 each MISCELLANE DAILY PRN PRN Reason: Consult order Polyethylene Glycol (Polyethylene Glycol 3350 17 Gm Powd.Pack) 17 gm PO DAILY PRN PRN Reason: Constipation Sertraline HCl (Sertraline Hcl 25 Mg Tablet) 25 mg PO DAILY [facility] Last Admin: 06/01/24 08:36 Dose: 25 mg Documented By: HENRIK Sodium Bicarbonate (Sodium Bicarbonate 650 Mg Tablet) 1,300 mg PO BID [facility] Last Admin: 06/01/24 08:36 Dose: 1,300 mg Documented By: HENRIK Sodium Chloride (0.9 % Sodium Chloride Flush 3 Ml Syringe) 3 ml IVFLUSH QSHIFT [facility] Last Admin: 06/01/24 08:37 Dose: 3 ml Documented By: HENRIK Sucralfate (Sucralfate 1 Gm Tablet) 1 gm PO QIDACHS [facility] Last Admin: 06/01/24 11:33 Dose: 1 gm Documented By: HENRIK Labs 05/30/24 07:24 05/30/24 07:24 Labs: Laboratory Results - last 24 hr 05/31/24 05/31/24 05/31/24 16:01 16:45 17:05 POC Glucose 237 H Urine Color Urine Appearance Urine pH Ur Specific [place] Urine Protein Urine Glucose (UA) Urine Ketones Urine Blood Urine Nitrite Ur Leukocyte Esterase Urine RBC Urine WBC Ur Squamous Epith Cells Calcium Oxalate Crystal Urine Bacteria Hyaline Casts Nasal Screen MRSA (PCR) NEGATIVE Nasal S. aureus Screen NEGATIVE Nasal MRSA/S.aureus Interp SEE NOTE Respiratory Panel Davila See Note Adenovirus (Rapid PCR) Not Detected B.pert (TEM-PCR) Not Detected B.parapertussis DNA PCR Not Detected C. pneumoniae DNA (PCR) Not Detected Coronavirus OC43 (PCR) Not Detected Coronavirus HKU1 (PCR) Not Detected Coronavirus 229E (PCR) Not Detected Coronavirus NL63 (PCR) Not Detected Hepatitis C Ab (EIA) HIV 1&2 Ab/P24 Ag 4thGn Nonreactive Human Metapneumovir PCR Not Detected Influenza A (RT-PCR) Not Detected Influenza B (RT-PCR) Not Detected M. pneumoniae (PCR) Not Detected Parainfluenza 1 (PCR) Not Detected Parainfluenza 2 (PCR) Not Detected Parainfluenza 3 (PCR) Not Detected Parainfluenza 4 (PCR) Not Detected RSV (PCR) Not Detected Entero/Rhino (PCR) Not Detected SARS-CoV-2 RNA (RT-PCR) Not Detected 05/31/24 05/31/24 06/01/24 17:47 22:09 07:08 POC Glucose 209 H 201 H Urine Color Yellow Urine Appearance Clear Urine pH 8.0 Ur Specific [place] 1.025 Urine Protein 100 (2+) H Urine Glucose (UA) 250 H Urine Ketones Negative Urine Blood Negative Urine Nitrite Negative Ur Leukocyte Esterase Negative Urine RBC 0-2 Urine WBC 0-5 Ur Squamous Epith Cells 0-2 Calcium Oxalate Crystal Present Urine Bacteria None Seen Hyaline Casts 3-5 Nasal Screen MRSA (PCR) Nasal S. aureus Screen Nasal MRSA/S.aureus Interp Respiratory Panel [place] Adenovirus (Rapid PCR) B.pert (TEM-PCR) B.parapertussis DNA PCR C. pneumoniae DNA (PCR) Coronavirus OC43 (PCR) Coronavirus HKU1 (PCR) Coronavirus 229E (PCR) Coronavirus NL63 (PCR) Hepatitis C Ab (EIA) HIV 1&2 Ab/P24 Ag 4thGn Human Metapneumovir PCR Influenza A (RT-PCR) Influenza B (RT-PCR) M. pneumoniae (PCR) Parainfluenza 1 (PCR) Parainfluenza 2 (PCR) Parainfluenza 3 (PCR) Parainfluenza 4 (PCR) RSV (PCR) Entero/Rhino (PCR) SARS-CoV-2 RNA (RT-PCR) 06/01/24 06/01/24 10:23 10:53 POC Glucose 307 H Urine Color Urine Appearance Urine pH Ur Specific [place] Urine Protein Urine Glucose (UA) Urine Ketones Urine Blood Urine Nitrite Ur Leukocyte Esterase Urine RBC Urine WBC Ur Squamous Epith Cells Calcium Oxalate Crystal Urine Bacteria Hyaline Casts Nasal Screen MRSA (PCR) Nasal S. aureus Screen Nasal MRSA/S.aureus Interp Respiratory Panel [place] Adenovirus (Rapid PCR) B.pert (TEM-PCR) B.parapertussis DNA PCR C. pneumoniae DNA (PCR) Coronavirus OC43 (PCR) Coronavirus HKU1 (PCR) Coronavirus 229E (PCR) Coronavirus NL63 (PCR) Hepatitis C Ab (EIA) Nonreactive HIV 1&2 Ab/P24 Ag 4thGn Nonreactive Human Metapneumovir PCR Influenza A (RT-PCR) Influenza B (RT-PCR) M. pneumoniae (PCR) Parainfluenza 1 (PCR) Parainfluenza 2 (PCR) Parainfluenza 3 (PCR) Parainfluenza 4 (PCR) RSV (PCR) Entero/Rhino (PCR) SARS-CoV-2 RNA (RT-PCR) Microbiology Microbiology Results: Microbiology 06/01/24 14:25 Gram Stain - Final Thigh Right Assessment and Plan (1) Mass of lung parenchyma: Status: Acute (2) Encephalopathy: Status: Acute (3) Severe malnutrition: Status: Acute (4) Pneumonia, community acquired: Status: Acute (5) Hyperkalemia: Status: Acute Plan 64yo F with ESRD on HD MWF with failed transplant, HTN, HLD, HFrEF, DM2, GERD, esophagitis presented with weakness, missed HD on 05/26, found to be febrile due to PNA developed LUE/LLE weakness concerning for thalamic stroke vs. mass Left upper extremity and left lower extremity weakness due to thalamic and parietal lobe nodules - Neuro consulted, MRI showed peripherally enhancing nodules within the right thalamus, left parietal lobe and at the right temporo-occipital junction maybe secondary to metastatic disease or an inflammatory/infectious process on dexamethasone to prevent cerebral edema will change to 4mg po q.[address] chest showed spiculated soft tissue masses both lungs largest in the right middle lobe laterally and posterior right upper lobe, necrotic appearing pleural based lesions right hemithorax findings consistent with advanced malignancy, suspect right basilar loculated pleural abscess measuring up to 9 cm, smooth interlobular septal thickening right greater than left lungs with small layering pleural effusion findings consistent with super imposed pulmonary edema, mild cardiomegaly, anasarca. Prior pleural fluid studies from 04/09/2024 was negative for malignant cells. Normal carotid ultrasound Seen by supervisor whipped topping Dr. Osborn he feels that all her findings including skin lesion is highly suspicious for an infectious process he recommended I and D of skin nodules, and to treat patient with broad-spectrum antibiotics will follow Gram stain culture sensitivity and fungal cultures ECHO THIS A.M. SHOWED NO VEGETATIONS Blood cultures x2 negative CA-PNA -WBC trending down, no fevers, on ceftriaxone and azithromycin 05/28 thru 06/01 will transition to IV vanco and Zosyn to cover for skin lesions as well, PCT decreasing ; BCx negative; YARD BRAKEMAN recommend to continue NDD3 solids/thin liquids anemia of ESRD - improved after transfused 1u pRBCs 05/29; FOBT negative; gave epo 27304 units 05/29 and continue MWF hyperK - resolved after HD 05/28 ESRD on HD - HD 05/28 and continue MWF renal transplant - continue prednisone + tacrolimus chronic HFrEF - continue Imdur, carvedilol - volume management by dialysis GERD esophagitis - PPI, sucralfate DM2 -elevated blood sugars likely due to steroids, adjust malaika-dose lispro mood disorder - sertraline severe malnutrition - continue supplements Stage II pressure injury sacrum , seen by wound nurse continue foam dressing and protection from friction and moisture and protect bony prominences, high-protein diet. Multiple skin nodules unclear etiology question abscess, consulted General surgery for I and D and culture sensitivity - PT recommend home with services VTE ppx - UFH In my clinical judgment, the patient requires continued inpatient hospitalization for the following reasons: brain mass workup, IV ABX and expert consultation Quality Stroke Does the patient have a stroke diagnosis?: No VTE Prior VTE?: No VTE Risk Level:: Medical - moderate - high VTE Device Contraindication: N/A - Device Ordered VTE Drug Contraindication: N/A - Med Ordered
[2024-06-01 16:22] LABS: Glucose, Whole Blood 278 mg/dL (60-115)
[2024-06-01 17:28] LABS: IgA 753 mg/dL (70-320); IgG 1461 mg/dL (600-1540); IgM 32 mg/dL (50-300)
[2024-06-01] MEDS: dexAMETHasone sod phosphate 4 MG/ML VIAL PO (17:30)
[2024-06-01 18:13] LABS: Myeloperoxidase Antibody <1.0 AI; Proteinase 3 PR3 Antibodies <1.0 AI
[2024-06-01] MEDS: Acetaminophen 325 MG TABLET 650 MG PO (18:17)
[2024-06-01 19:59] LABS: Glucose, Whole Blood 232 mg/dL (60-115)
[2024-06-01] MEDS: traMADoL HCL 50 MG TABLET 25 MG PO (22:39)
[2024-06-02] MEDS: Piperacillin Sodium/Tazobactam 2.25 GM in 0.9 % Sodium Chloride 50 ML IV ×3 (00:49→17:39)
[2024-06-02] MEDS: dexAMETHasone sod phosphate 4 MG/ML VIAL PO ×3 (00:49→17:38)
[2024-06-02] MEDS: Heparin Sodium,Porcine 5,000 UNIT/ML VIAL 5000 UNIT SUBCUT ×2 (00:50→17:38)
[2024-06-02] MEDS: 0.9 % Sodium Chloride Flush 3 ML SYRINGE IVFLUSH ×3 (00:55→17:41)
[2024-06-02 04:00] VITALS: BP 176/97; PULSE 60; RESP 16; TEMP 36.6; O2SAT 100
[2024-06-02 06:57] LABS: Glucose, Whole Blood 167 mg/dL (60-115)
[2024-06-02 07:13] VITALS: BP 172/68; PULSE 63; RESP 18; TEMP 36.7; O2SAT 99
[2024-06-02] MEDS: Sucralfate 1 GM TABLET PO ×3 (08:28→17:37)
[2024-06-02] MEDS: Isosorbide Mononitrate 30 MG TAB.ER.24H PO (08:28)
[2024-06-02] MEDS: Insulin Lispro 100 UNIT/ML 3 ML VIAL SUBCUT ×3 (08:28→17:40)
[2024-06-02] MEDS: Multivitamin TABLET 1 TAB PO (08:29)
[2024-06-02] MEDS: carvediloL 25 MG TABLET PO (08:29)
[2024-06-02] MEDS: Sodium Bicarbonate 650 MG TABLET 1300 MG PO (08:29)
[2024-06-02] MEDS: Magnesium Oxide 400 MG TABLET PO (08:29)
[2024-06-02] MEDS: Sertraline HCL 25 MG TABLET PO (08:29)
[2024-06-02] MEDS: TACROLIMUS 1 MG 8 EACH PO (08:33)
--- NOTE | 2024-06-02 10:47 | PM.PNGS ---
Subjective Subjective Date of Service: 06/02/24 Interval history: Reports she had very mild pain at the I&D site yesterday. Physical Exam Vital Signs: Vital Signs: Last Vital Signs Temp 98.1 F 06/02/24 07:13 Pulse 63 06/02/24 07:13 Resp 18 06/02/24 07:13 BP 172/68 H 06/02/24 07:13 Pulse Ox 99 06/02/24 07:13 O2 Del Method Room Air 06/02/24 07:13 BMI result Body Mass Index 17.5 Const: General: comfortable, no acute distress and alert Orientation/consciousness: patient oriented x3 Skin: Other: right medial mid/upper thigh I&D site clean, no drainage, no erythema or edema Neuro: General: patient oriented x3 Objective Data Active Medications Acetaminophen (Acetaminophen 325 Mg Tablet) 650 mg PO Q6H PRN PRN Reason: Pain, Mild 1-3,fever,headache Last Admin: 06/01/24 18:17 Dose: 650 mg Documented By: HENRIK Calcium Carbonate (Calcium Carbonate 750 Mg Tab.Chew) 750 mg PO Q4H PRN PRN Reason: Heartburn Carvedilol (Carvedilol 25 Mg Tablet) 25 mg PO BID [facility]; Protocol Last Admin: 06/02/24 08:29 Dose: 25 mg Documented By: HENRIK Dexamethasone Sodium Phosphate (Dexamethasone Sod Phosphate 4 Mg/Ml Vial) 4 mg PO Q8H [facility] Last Admin: 06/02/24 08:28 Dose: 4 mg Documented By: HENRIK Dextrose (Dextrose 50 % 25 Gm/50 Ml Syringe) 25 gm IVPUSH Q15M PRN; Protocol PRN Reason: per Hypoglycemia Standing Ord. Diphenhydramine HCl (Diphenhydramine Hcl 25 Mg Capsule) 25 mg PO BID PRN PRN Reason: itchiness Docusate Sodium (Docusate Sodium 100 Mg Capsule) 100 mg PO DAILY PRN PRN Reason: Constipation Epoetin Bassem-epbx (Epoetin Bassem-Epbx 20,000 Unit/Ml Vial) 20,000 unit SUBCUT MOWEFR [facility] Last Admin: 05/31/24 11:52 Dose: 20,000 unit Documented By: KRISTIAN-RIVLA Glucose (Glucose Gel 15 Gm Gel..Gram.) 15 gm PO Q15M PRN; Protocol PRN Reason: per Hypoglycemia Standing Ord. Heparin Sodium (Porcine) (Heparin Sodium,Porcine 5,000 Unit/Ml Vial) 5,000 unit SUBCUT Q12H [facility] Last Admin: 06/02/24 00:50 Dose: 5,000 unit Documented By: TERESA Piperacillin Sod/Tazobactam (Sod 2.25 gm/ Sodium Chloride) 50 mls @ 100 mls/hr IV Q8H [facility] Last Admin: 06/02/24 08:29 Dose: 100 mls/hr Documented By: HENRIK Vancomycin HCl 500 mg/ Sodium (Chloride) 110 mls @ 110 mls/hr IV ONCE ONE Stop: 06/02/24 18:59 Insulin Human Lispro (Insulin Lispro 100 Unit/Ml 3 Ml Vial) 0 unit SUBCUT QIDACHS [facility]; Protocol Last Admin: 06/02/24 08:28 Dose: 4 unit Documented By: HENRIK Isosorbide Mononitrate (Isosorbide Mononitrate 30 Mg Tab.Er.24h) 30 mg PO DAILY [facility]; Protocol Last Admin: 06/02/24 08:28 Dose: 30 mg Documented By: HENRIK Lidocaine HCl (Lidocaine Hcl 1 % Mpf 2 Ml Vial) 0.5 ml SUBCUT MOWEFR@1645 [facility] Last Admin: 05/31/24 22:09 Dose: Not Given Documented By: CECELIA Non-Admin Reason: given in dialysis Loperamide HCl (Loperamide Hcl 2 Mg Capsule) 2 mg PO Q4H PRN PRN Reason: diarrhea Last Admin: 06/01/24 17:38 Dose: 2 mg Documented By: NICKY Magnesium Hydroxide (Milk Of Magnesia 30 Ml Oral.Susp) 30 ml PO DAILY PRN PRN Reason: Constipation Magnesium Oxide (Magnesium Oxide 400 Mg Tablet) 400 mg PO BID [facility] Last Admin: 06/02/24 08:29 Dose: 400 mg Documented By: HENRIK Melatonin (Melatonin 3 Mg Tablet) 6 mg PO BEDTIME PRN PRN Reason: Insomnia Last Admin: 05/31/24 22:39 Dose: 6 mg Documented By: CECELIA Multivitamins/Vitamin C (Multivitamin Tablet) 1 tab PO DAILY [facility] Last Admin: 06/02/24 08:29 Dose: 1 tab Documented By: HENRIK Non-Formulary Medication ( Tacrolimus 1 Mg Tablet Extended Release 24 Hr) 8 mg PO DAILY [facility] Last Admin: 06/02/24 08:33 Dose: 8 mg Documented By: HENRIK Omeprazole (Omeprazole 20 Mg Capsule.Dr) 20 mg PO DAILY@0630 [facility] Last Admin: 06/02/24 05:19 Dose: Not Given Documented By: KRISTIAN-BOZENA Non-Admin Reason: cannot crush Ondansetron HCl (Ondansetron Hcl 4 Mg/2 Ml Vial) 4 mg IVPUSH Q8H PRN PRN Reason: Nausea and Vomiting Pharmacy Consult (Consult Rx Vancomycin Dosing) 1 each MISCELLANE DAILY PRN PRN Reason: Consult order Polyethylene Glycol (Polyethylene Glycol 3350 17 Gm Powd.Pack) 17 gm PO DAILY PRN PRN Reason: Constipation Sertraline HCl (Sertraline Hcl 25 Mg Tablet) 25 mg PO DAILY [facility] Last Admin: 06/02/24 08:29 Dose: 25 mg Documented By: HENRIK Sodium Bicarbonate (Sodium Bicarbonate 650 Mg Tablet) 1,300 mg PO BID [facility] Last Admin: 06/02/24 08:29 Dose: 1,300 mg Documented By: HENRIK Sodium Chloride (0.9 % Sodium Chloride Flush 3 Ml Syringe) 3 ml IVFLUSH QSHIFT [facility] Last Admin: 06/02/24 08:30 Dose: 3 ml Documented By: HENRIK Sucralfate (Sucralfate 1 Gm Tablet) 1 gm PO QIDACHS [facility] Last Admin: 06/02/24 08:28 Dose: 1 gm Documented By: HENRIK Labs 05/30/24 07:24 05/30/24 07:24 Labs: Laboratory Results - last 24 hr 05/31/24 05/31/24 06/01/24 16:45 17:05 10:23 POC Glucose Nasal Screen MRSA (PCR) NEGATIVE Nasal S. aureus Screen NEGATIVE Nasal MRSA/S.aureus Interp SEE NOTE IgG Total 1461 IgA Total 753 H IgM 32 L Proteinase 3 (PR3) Ab <1.0 Myeloperoxidase Ab <1.0 Hepatitis C Ab (EIA) Nonreactive HIV 1&2 Ab/P24 Ag 4thGn Nonreactive 06/01/24 06/01/24 06/01/24 10:53 16:18 19:54 POC Glucose 307 H 278 H 232 H Nasal Screen MRSA (PCR) Nasal S. aureus Screen Nasal MRSA/S.aureus Interp IgG Total IgA Total IgM Proteinase 3 (PR3) Ab Myeloperoxidase Ab Hepatitis C Ab (EIA) HIV 1&2 Ab/P24 Ag 4thGn 06/02/24 06:53 POC Glucose 167 H Nasal Screen MRSA (PCR) Nasal S. aureus Screen Nasal MRSA/S.aureus Interp IgG Total IgA Total IgM Proteinase 3 (PR3) Ab Myeloperoxidase Ab Hepatitis C Ab (EIA) HIV 1&2 Ab/P24 Ag 4thGn Microbiology Microbiology Results: Microbiology 06/01/24 14:25 Gram Stain - Final Thigh Right Routine Culture - Preliminary No growth to date. 05/27/24 21:48 Blood Culture - Final Blood - Venous No growth after 5 days. 05/27/24 21:44 Blood Culture - Final Blood - Venous No growth after 5 days. Procedures Date of Service Date of Service: 06/02/24 Progress Note: A&P Assessment and plan (1) Mass of lung parenchyma: Status: Acute Plan S/p I&D of right medial mid thigh nodule. No issues this morning. Site remains clean and dry. Can keep covered and change daily with either dry 4x4 or allevyn foam pad while wound remains open. Cultures pending. Time Spent With Patient Time: Total time managing care of this patient today ____ minutes. Quality Stroke Does the patient have a stroke diagnosis?: No VTE Prior VTE?: No VTE Risk Level:: Medical - moderate - high VTE Device Contraindication: N/A - Device Ordered VTE Drug Contraindication: N/A - Med Ordered
[2024-06-02 10:55] LABS: Glucose, Whole Blood 263 mg/dL (60-115)
[2024-06-02 11:16] VITALS: BP 163/74; PULSE 59; RESP 18; TEMP 36.3; O2SAT 100
--- NOTE | 2024-06-02 13:57 | MHC.CLN ---
F/U PO INTAKE 100% X 4 MEALS DIET RX:2000DM, 2 GRAM SODIUM, LOW POTASSIUM CHOPPED-APPROPRIATE ENSURE CLEAR TID SUPPLEMENT APPROPRIATE TO PROMOTE WOUND HEALING SUPPLEMENT PROVIDES 720 KCALS, 24 G PROTEIN AND IS RENAL FRIENDLY MONITOR PO INTAKE AND ENCOURAGE SUPPLEMENT
--- NOTE | 2024-06-02 14:25 | MHC.SLORD ---
Speech Language Pathology Order Status: RN consulted, no concerns with PO tolerance, pt is requesting meds whole with liquids. Pt not seen today for followup, INSTRUMENT DESIGNER to continue treatment as indicated.
--- NOTE | 2024-06-02 15:05 | P.PNIM_ITS ---
Subjective Subjective Date of Service: 06/02/24 Interval History: Being followed for left upper and lower extremity weakness. Complaining of right thigh pain at site of drainage Denies fever, no chills, tolerating diet no nausea, no vomiting or abdominal pain, no acute issues overnight. Review of Systems All other system reviewed and are negative Physical Exam 2 Vital Signs: Vital Signs: Last Vital Signs Temp 97.4 F 06/02/24 11:16 Pulse 59 06/02/24 11:16 Resp 18 06/02/24 11:16 BP 163/74 H 06/02/24 11:16 Pulse Ox 100 06/02/24 11:16 O2 Del Method Room Air 06/02/24 11:16 BMI result Body Mass Index 17.5 Const: Other: Gen: Resting comfortably,in no acute distress, muscle wasting HEENT: sclera anicteric, moist mucus membranes Neck: supple, no JVD Lungs: Clear, diminished Heart: regular rate and rhythm, no murmurs Abd: soft, non-tender, non-distended Ext: no edema Skin: warm/well-perfused, multiple skin nodules, right medial thigh nodule i/d site with no drainage, no surrounding erythema or fluctuation, mild tenderness Neuro: alert and oriented x3, LUE and LLE with 3/5 strength, face symmetrical Psych: appropriate affect Objective Data Active Medications Acetaminophen (Acetaminophen 325 Mg Tablet) 650 mg PO Q6H PRN PRN Reason: Pain, Mild 1-3,fever,headache Last Admin: 06/01/24 18:17 Dose: 650 mg Documented By: HENRIK Calcium Carbonate (Calcium Carbonate 750 Mg Tab.Chew) 750 mg PO Q4H PRN PRN Reason: Heartburn Carvedilol (Carvedilol 25 Mg Tablet) 25 mg PO BID [facility]; Protocol Last Admin: 06/02/24 08:29 Dose: 25 mg Documented By: HENRIK Dexamethasone Sodium Phosphate (Dexamethasone Sod Phosphate 4 Mg/Ml Vial) 4 mg PO Q8H [facility] Last Admin: 06/02/24 08:28 Dose: 4 mg Documented By: HENRIK Dextrose (Dextrose 50 % 25 Gm/50 Ml Syringe) 25 gm IVPUSH Q15M PRN; Protocol PRN Reason: per Hypoglycemia Standing Ord. Diphenhydramine HCl (Diphenhydramine Hcl 25 Mg Capsule) 25 mg PO BID PRN PRN Reason: itchiness Docusate Sodium (Docusate Sodium 100 Mg Capsule) 100 mg PO DAILY PRN PRN Reason: Constipation Epoetin Bassem-epbx (Epoetin Bassem-Epbx 20,000 Unit/Ml Vial) 20,000 unit SUBCUT MOWEFR [facility] Last Admin: 06/02/24 12:35 Dose: 20,000 unit Documented By: HENRIK Glucose (Glucose Gel 15 Gm Gel..Gram.) 15 gm PO Q15M PRN; Protocol PRN Reason: per Hypoglycemia Standing Ord. Heparin Sodium (Porcine) (Heparin Sodium,Porcine 5,000 Unit/Ml Vial) 5,000 unit SUBCUT Q12H [facility] Last Admin: 06/02/24 00:50 Dose: 5,000 unit Documented By: TERESA Piperacillin Sod/Tazobactam (Sod 2.25 gm/ Sodium Chloride) 50 mls @ 100 mls/hr IV Q8H [facility] Last Admin: 06/02/24 08:29 Dose: 100 mls/hr Documented By: HENRIK Vancomycin HCl 500 mg/ Sodium (Chloride) 110 mls @ 110 mls/hr IV ONCE ONE Stop: 06/02/24 18:59 Insulin Human Lispro (Insulin Lispro 100 Unit/Ml 3 Ml Vial) 0 unit SUBCUT QIDACHS [facility]; Protocol Last Admin: 06/02/24 12:34 Dose: 1 unit Documented By: HENRIK Isosorbide Mononitrate (Isosorbide Mononitrate 30 Mg Tab.Er.24h) 30 mg PO DAILY [facility]; Protocol Last Admin: 06/02/24 08:28 Dose: 30 mg Documented By: HENRIK Lidocaine HCl (Lidocaine Hcl 1 % Mpf 2 Ml Vial) 0.5 ml SUBCUT MOWEFR@1645 [facility] Last Admin: 05/31/24 22:09 Dose: Not Given Documented By: CECELIA Non-Admin Reason: given in dialysis Loperamide HCl (Loperamide Hcl 2 Mg Capsule) 2 mg PO Q4H PRN PRN Reason: diarrhea Last Admin: 06/01/24 17:38 Dose: 2 mg Documented By: NICKY Magnesium Hydroxide (Milk Of Magnesia 30 Ml Oral.Susp) 30 ml PO DAILY PRN PRN Reason: Constipation Magnesium Oxide (Magnesium Oxide 400 Mg Tablet) 400 mg PO BID [facility] Last Admin: 06/02/24 08:29 Dose: 400 mg Documented By: HENRIK Melatonin (Melatonin 3 Mg Tablet) 6 mg PO BEDTIME PRN PRN Reason: Insomnia Last Admin: 05/31/24 22:39 Dose: 6 mg Documented By: CECELIA Multivitamins/Vitamin C (Multivitamin Tablet) 1 tab PO DAILY [facility] Last Admin: 06/02/24 08:29 Dose: 1 tab Documented By: HENRIK Non-Formulary Medication ( Tacrolimus 1 Mg Tablet Extended Release 24 Hr) 8 mg PO DAILY [facility] Last Admin: 06/02/24 08:33 Dose: 8 mg Documented By: HENRIK Omeprazole (Omeprazole 20 Mg Capsule.Dr) 20 mg PO DAILY@0630 [facility] Last Admin: 06/02/24 05:19 Dose: Not Given Documented By: TERESA Non-Admin Reason: cannot crush Ondansetron HCl (Ondansetron Hcl 4 Mg/2 Ml Vial) 4 mg IVPUSH Q8H PRN PRN Reason: Nausea and Vomiting Pharmacy Consult (Consult Rx Vancomycin Dosing) 1 each MISCELLANE DAILY PRN PRN Reason: Consult order Polyethylene Glycol (Polyethylene Glycol 3350 17 Gm Powd.Pack) 17 gm PO DAILY PRN PRN Reason: Constipation Sertraline HCl (Sertraline Hcl 25 Mg Tablet) 25 mg PO DAILY [facility] Last Admin: 06/02/24 08:29 Dose: 25 mg Documented By: HENRIK Sodium Bicarbonate (Sodium Bicarbonate 650 Mg Tablet) 1,300 mg PO BID [facility] Last Admin: 06/02/24 08:29 Dose: 1,300 mg Documented By: HENRIK Sodium Chloride (0.9 % Sodium Chloride Flush 3 Ml Syringe) 3 ml IVFLUSH QSHIFT [facility] Last Admin: 06/02/24 08:30 Dose: 3 ml Documented By: HENRIK Sucralfate (Sucralfate 1 Gm Tablet) 1 gm PO QIDACHS [facility] Last Admin: 06/02/24 12:34 Dose: 1 gm Documented By: HENRIK Labs 05/30/24 07:24 05/30/24 07:24 Labs: Laboratory Results - last 24 hr 05/31/24 06/01/24 06/01/24 16:45 16:18 19:54 POC Glucose 278 H 232 H IgG Total 1461 IgA Total 753 H IgM 32 L Proteinase 3 (PR3) Ab <1.0 Myeloperoxidase Ab <1.0 06/02/24 06/02/24 06:53 10:52 POC Glucose 167 H 263 H IgG Total IgA Total IgM Proteinase 3 (PR3) Ab Myeloperoxidase Ab Microbiology Microbiology Results: Microbiology 06/01/24 14:25 Gram Stain - Final Thigh Right Routine Culture - Preliminary No growth to date. 05/27/24 21:48 Blood Culture - Final Blood - Venous No growth after 5 days. 05/27/24 21:44 Blood Culture - Final Blood - Venous No growth after 5 days. Assessment and Plan (1) Mass of lung parenchyma: Status: Acute (2) Encephalopathy: Status: Acute (3) Severe malnutrition: Status: Acute (4) Pneumonia, community acquired: Status: Acute Plan 64yo F with ESRD on HD MWF with failed transplant, HTN, HLD, HFrEF, DM2, GERD, esophagitis presented with weakness, missed HD on 05/26, found to be febrile due to PNA developed LUE/LLE weakness concerning for thalamic stroke vs. mass Left upper extremity and left lower extremity weakness due to thalamic and parietal lobe nodules - Neuro consulted, MRI showed peripherally enhancing nodules within the right thalamus, left parietal lobe and at the right temporo-occipital junction maybe secondary to metastatic disease or an inflammatory/infectious process on dexamethasone to prevent cerebral edema changed to 4mg po q.8 hours by mouth on 06/01 CT chest showed spiculated soft tissue masses both lungs largest in the right middle lobe laterally and posterior right upper lobe, necrotic appearing pleural based lesions right hemithorax findings consistent with advanced malignancy, suspect right basilar loculated pleural abscess measuring up to 9 cm, smooth interlobular septal thickening right greater than left lungs with small layering pleural effusion findings consistent with super imposed pulmonary edema, mild cardiomegaly, anasarca. Prior pleural fluid studies from 04/09/2024 was negative for malignant cells. Normal carotid ultrasound Seen by tax clerk Dr. Osborn he feels that all her findings including skin lesion is highly suspicious for an infectious process he recommended I and D of skin nodules, and to treat patient with broad-spectrum antibiotics Gram stain culture sensitivity from right medial thigh nodule showed no growth and fungal cultures pending ECHO showed no vegetations Blood cultures x2 negative Continue IV vanco and Zosyn day 2 and rediscuss with pulmonology. Will check CBC lytes and CRP at a.m. CA-PNA -WBC trending down, no fevers, s/p ceftriaxone and azithromycin 05/28 thru 06/01 ,transition to IV vanco and Zosyn to cover for skin lesions as well, PCT decreasing ; BCx negative; GAUGE OPERATOR recommend to continue NDD3 solids/thin liquids anemia of ESRD - improved after transfused 1u pRBCs 05/29; FOBT negative; gave epo 96878 units 05/29 and continue MWF hyperK - resolved after HD 05/28 ESRD on HD - continue HD MWF renal transplant - continue prednisone + tacrolimus chronic HFrEF - continue Imdur, carvedilol - volume management by dialysis GERD esophagitis - PPI, sucralfate DM2 -elevated blood sugars likely due to steroids, adjust malaika-dose lispro mood disorder - sertraline severe malnutrition - continue supplements Stage II pressure injury sacrum , seen by wound nurse continue foam dressing and protection from friction and moisture and protect bony prominences, high-protein diet. Multiple skin nodules unclear etiology question abscess, s/p I and D by gen surgery , routine culture showed no growth - PT recommend home with services VTE ppx - UFH In my clinical judgment, patient requires continued inpatient hospitalization for the following reasons: brain mass workup, IV ABX and expert consultation Quality Stroke Does the patient have a stroke diagnosis?: No VTE Prior VTE?: No VTE Risk Level:: Medical - moderate - high VTE Device Contraindication: N/A - Device Ordered VTE Drug Contraindication: N/A - Med Ordered
[2024-06-02 15:08] VITALS: BP 156/71; PULSE 60; RESP 18; TEMP 36.6; O2SAT 95
[2024-06-02 16:11] LABS: Glucose, Whole Blood 265 mg/dL (60-115)
[2024-06-02 17:13] LABS: Vancomycin Random 18.8 mcg/mL (15-20)
--- NOTE | 2024-06-02 17:43 | P.PNNP_ITS ---
Subjective Subjective Date of Service: 06/02/24 Interval history: no acute issues overnight. All recent data reviewed Physical Exam 2 Vital Signs: Vital Signs: Last Vital Signs Temp 97.9 F 06/02/24 15:08 Pulse 60 06/02/24 15:08 Resp 18 06/02/24 15:08 BP 156/71 H 06/02/24 15:08 Pulse Ox 95 06/02/24 15:08 O2 Del Method Room Air 06/02/24 15:08 BMI result Body Mass Index 17.5 Const: General: no acute distress Orientation/consciousness: patient oriented x3 Eyes: EOM: EOMs intact bilaterally Resp: Auscultation: diminished lung sounds Cardio: Rate: regular rate GI: Palpation (GI): Soft to palpation Neuro: General: patient oriented x3 Objective Data Labs 05/30/24 07:24 05/30/24 07:24 Labs: Laboratory Results - last 24 hr 05/31/24 06/01/24 06/02/24 16:45 19:54 06:53 POC Glucose 232 H 167 H Random Vancomycin Proteinase 3 (PR3) Ab <1.0 Myeloperoxidase Ab <1.0 06/02/24 06/02/24 06/02/24 10:52 16:07 16:22 POC Glucose 263 H 265 H Random Vancomycin 18.8 Proteinase 3 (PR3) Ab Myeloperoxidase Ab Microbiology Microbiology Results: Microbiology 06/01/24 14:25 Thigh Right Gram Stain - Final 06/01/24 14:25 Thigh Right Routine Culture - Preliminary No growth to date. 05/27/24 21:48 Blood - Venous Blood Culture - Final No growth after 5 days. 05/27/24 21:44 Blood - Venous Blood Culture - Final No growth after 5 days. Procedures Date of Service Date of Service: 06/02/24 Assessment & Plan Assessment and plan (1) ESRD (end stage renal disease) on dialysis: Status: Acute Plan Usually gets HD on MWF Shall dialyze today Has a functioning AVF Low Na/K diet with fluid restriction Procrit 47737 MWF to keep Hb ~ 10 Continue rest of current management for now Progress Note: Quality Stroke Does the patient have a stroke diagnosis?: No
[2024-06-02 20:00] VITALS: BP 164/73; PULSE 58; RESP 16; TEMP 36.4; O2SAT 98
[2024-06-03] VITALS (8 sets, daily range): BP systolic 109–193; BP diastolic 48–81; PULSE 58–65; RESP 16–18; TEMP 36.3–37.1; O2SAT 93–100
[2024-06-03] MEDS: dexAMETHasone sod phosphate 4 MG/ML VIAL PO ×2 (01:10→09:33)
[2024-06-03] MEDS: 0.9 % Sodium Chloride Flush 3 ML SYRINGE IVFLUSH ×3 (01:10→16:29)
[2024-06-03] MEDS: Heparin Sodium,Porcine 5,000 UNIT/ML VIAL 5000 UNIT SUBCUT ×2 (01:11→16:29)
[2024-06-03] MEDS: hydrALAZINE HCl 20 MG/ML VIAL 10 MG IVPUSH (01:11)
[2024-06-03] MEDS: Piperacillin Sodium/Tazobactam 2.25 GM in 0.9 % Sodium Chloride 50 ML IV (01:11)
[2024-06-03 01:20] LABS: Glucose, Whole Blood 126 mg/dL (60-115)
[2024-06-03 07:31] LABS: Hematocrit 30.1 % (37.0-47.0); Hemoglobin 9.8 g/dl (12.0-16.0); Mean Corpuscular HGB Conc 32.6 g/dl (31.0-35.0); Mean Corpuscular Hemoglobin 28.7 pg (27.0-33.0); Mean Corpuscular Volume 88.3 fL (80.0-98.0); Mean Platelet Volume 9.1 fL (9.4-12.3); Platelet Count 329 X10*3/uL (160-400); Red Blood Count 3.41 X10*6/uL (4.20-5.50); Red Cell Distribution Width 16.7 % (11.0-16.0); White Blood Count 16.9 X10*3/uL (4.8-10.8)
[2024-06-03 07:55] LABS: Glucose, Whole Blood 144 mg/dL (60-115)
[2024-06-03 07:59] LABS: Anion Gap 13 (12-20); Blood Urea Nitrogen 34 mg/dL (9-16); C Reactive Protein 1.41 mg/dL (< or = 0.50); Calcium 8.5 mg/dL (8.4-10.2); Carbon Dioxide 27 mmol/L (22-29); Chloride 101 mmol/L (96-108); Creatinine Clr Calc Pharmacy 27.6; Estimated Glomerular Filt Rate 33; Glucose Random 145 mg/dL (60-115); Potassium 2.7 mmol/L (3.3-5.1); Sodium 138 mmol/L (135-145)
[2024-06-03 08:23] LABS: Magnesium 1.7 mg/dL (1.6-2.6)
--- NOTE | 2024-06-03 08:29 | HE.PHANOTE ---
VANCO DOSE ADJUSTMENT PATIENT GETS DIALYSIS MWF. PREVIOUS LEVEL 18.8. NEXT HD ON SUNDAY 06/04 AND LEVEL WILL BE DRAWN AFTER AT 1630
[2024-06-03] MEDS: Isosorbide Mononitrate 30 MG TAB.ER.24H PO (09:32)
[2024-06-03] MEDS: carvediloL 25 MG TABLET PO ×2 (09:32→21:12)
[2024-06-03] MEDS: Potassium Chloride ER 20 MEQ TAB.ER.PRT 40 MEQ PO (09:32)
[2024-06-03] MEDS: Sodium Bicarbonate 650 MG TABLET 1300 MG PO ×2 (09:33→21:12)
[2024-06-03] MEDS: Linezolid/D5W 600 MG/300 ML PIGGYBACK 300 MG IV ×2 (09:33→22:09)
[2024-06-03] MEDS: Sucralfate 1 GM TABLET PO ×4 (09:33→21:12)
[2024-06-03] MEDS: Magnesium Oxide 400 MG TABLET PO ×2 (09:33→21:12)
[2024-06-03] MEDS: Sertraline HCL 25 MG TABLET PO (09:33)
[2024-06-03] MEDS: Multivitamin TABLET 1 TAB PO (09:33)
[2024-06-03] MEDS: TACROLIMUS 1 MG 8 EACH PO (09:35)
--- NOTE | 2024-06-03 09:36 | P.PNPL_ITS ---
Subjective Subjective Date of Service: 06/03/24 Interval history: The patient was seen on exam. Overall she is feeling well. She is tolerating the antibiotics. Nocardia preliminary diagnosis positive. Will repeat the x- ray to make sure that the fluid collection is not getting worse case it needs to be drained. The patient denies any pleuritic pain. Objective Data Labs 06/03/24 07:24 06/03/24 07:24 Labs: Laboratory Results - last 24 hr 06/02/24 06/02/24 06/02/24 10:52 16:07 16:22 WBC RBC Hgb Hct MCV MCH MCHC RDW Plt Count MPV Absolute Nucleated RBC Nucleated RBC % (auto) Sodium Potassium Chloride Carbon Dioxide Anion Gap BUN Creatinine Estim Creat Clear Calc Estimated GFR POC Glucose 263 H 265 H Random Glucose Calcium Magnesium C-Reactive Protein Random Vancomycin 18.8 06/03/24 06/03/24 06/03/24 00:47 07:24 07:47 WBC 16.9 H RBC 3.41 L Hgb 9.8 L Hct 30.1 L MCV 88.3 MCH 28.7 MCHC 32.6 RDW 16.7 H Plt Count 329 MPV 9.1 L Absolute Nucleated RBC 0.170 H Nucleated RBC % (auto) 1.0 H Sodium 138 Potassium 2.7 L* D Chloride 101 Carbon Dioxide 27 Anion Gap 13 BUN 34 H Creatinine 1.59 H Estim Creat Clear Calc 27.6 Estimated GFR 33 POC Glucose 126 H 144 H Random Glucose 145 H Calcium 8.5 Magnesium 1.7 C-Reactive Protein 1.41 H Random Vancomycin Microbiology Microbiology Results: Microbiology 06/01/24 14:25 Thigh Right Gram Stain - Final 06/01/24 14:25 Thigh Right Routine Culture - Preliminary Gram positive ambreen 05/27/24 21:48 Blood - Venous Blood Culture - Final No growth after 5 days. 05/27/24 21:44 Blood - Venous Blood Culture - Final No growth after 5 days. Review of Systems Constitutional: Reports fatigue and Reports fever(s) Eyes: Denies blurry vision and Denies itchy eyes Denies nasal congestion, Denies post nasal drip, Denies sinus pain, Denies sinus pressure and Denies other ( Thrush) Cardiovascular: Denies chest pain, Denies pedal edema, Reports dyspnea on exertion, Denies orthopnea and Denies paroxysmal nocturnal dyspnea Respiratory: Denies cough, Denies hemoptysis, Denies excessive phlegm production, Reports dyspnea on exertion and Denies wheezing Gastrointestinal: Denies abdominal pain and Denies heartburn Musculoskeletal: Denies myalgias, Denies arthralgias, Denies joint swelling, Reports muscle weakness and Reports numbness Skin/Breast: Reports rash, Reports skin swelling and Reports skin ulcer Reports as per HPI, Denies memory loss, Reports numbness and Denies seizure-like activity Psychiatric: Denies abnormal sleep pattern, Denies anxiety and Denies memory loss Endocrine: Reports fatigue and Denies heat intolerance Hematologic/Lymphatic: Denies easy bruising Allergic/Immunologic: Denies itchy eyes, Denies seasonal rhinorrhea and Denies wheezing Physical Exam 2 Vital Signs: Vital Signs: Last Vital Signs Temp 98.4 F 06/03/24 08:00 Pulse 62 06/03/24 08:00 Resp 18 06/03/24 08:00 BP 153/58 H 06/03/24 08:00 Pulse Ox 94 06/03/24 08:00 O2 Del Method Room Air 06/03/24 08:00 BMI result Body Mass Index 17.5 Const: General: no acute distress Orientation/consciousness: patient oriented x3 Eyes: EOM: EOMs intact bilaterally Neck: Neck: Yes supple Resp: Auscultation: diminished lung sounds Cardio: Rate: regular rate GI: Palpation (GI): Soft to palpation Skin: Lesions: lesion noted Wounds: wounds noted Neuro: General: patient oriented x3 Procedures Date of Service Date of Service: 06/03/24 Assessment and Plan Assessment and plan (1) Pleural effusion, right: Status: Acute (2) Pneumonia: Status: Acute Plan CXR today to reassess fluid collection/abscess ID consult pending Time Spent With Patient Time: Total time managing care of this patient today ____ minutes. Progress Note: Quality Stroke Does the patient have a stroke diagnosis?: No
--- NOTE | 2024-06-03 10:33 | MHC.SL.SWA ---
Speech Pathologist Impression: Risk of Aspiration Due to: Dysphasia Diet Status: Recommend continue on current diet of Chopped/Advanced (NDD3) with Thin liquids, pills whole with liquid. WEBSPHERE PORTAL DEVELOPER to f/u X1 as this diet appears least restrictive/appropriate for patient. Liquid Consistency and Strategies for Safe Swallow: Liquid Intake Recommendation: Thin Liquid Intake Strategies: Small Sips Solid Food Consistency: Dietary Recommendations: Chopped/Advanced (NDD3) Additional Modifications to Solid Foods: WEBSPHERE PORTAL DEVELOPER continues to recommend chopped/advanced diet (NDD3), permitting soft sandwiches (i.e. tuna salad, chicken salad, pb&j) as requested from the kitchenette. Patient prefers crusts removed. Patient demonstrates some impulsivity feeding herself (i.e. packing mouth, speaking with mouth full of food), and will need direct supervision and cues as needed for safe feeding strategies: take one bite, chew food well, clear oral cavity before taking next bite, alternate with sips of liquid. Oral Medication Intake: Whole with Liquid Please contact the pharmacy regarding appropriate crushable or liquid drug formulations that are available whenever modified delivery is recommended. Compensatory Strategies and Precautions to be Taken for Safe Swallow: Sitting Upright (90 deg) Small Bites and Sips Alternate Liquids/Solids Rate of Ingestion Change Oral Check Avoid Specific Foods Supervision While Eating and Drinking for Safe Swallow: Total Supervision (1:1) Foods to Avoid: Avoid overly tough, hard to chew solids Swallowing Recommended Treatments: Compens. Strategy Educat. Recommendation for Speech: Inpatient Speech Therapy Comment: Patient was seen for dysphagia treatment this morning during administration of medication by RN. Patient was awake and alert, seated in chair beside bed, and communicating well with nurse about meds. Patient took multiple pills, progressing from smaller to largest with water taken by straw sip. Patient was able to put pill in mouth, and with assistance sip from water jug and swallow pills in a timely manner with no clinical signs of aspiration. Patient is further tolerating current diet of chopped/advanced with allowance for soft sandwiches. Recommend continue on current diet of Chopped/Advanced (NDD3) with Thin liquids, pills whole with liquid. Patient continues to require supervision with meals. WEBSPHERE PORTAL DEVELOPER to f/u X1 as this diet appears least restrictive/appropriate for patient. Frequency/Duration: Date Range for Service Req: Timeline to reassess: Aluminum Boat Assembly Supervisor Clinican/Clinical Fellow: No Supervisory Statement: I have reviewed and agree with the student/clinical fellow's documentation: N/A Speech Language Pathologist: Vannessa Pham M.A., CCC-WEBSPHERE PORTAL DEVELOPER
[2024-06-03 11:04] LABS: Glucose, Whole Blood 293 mg/dL (60-115)
[2024-06-03] MEDS: TRIMETHOPRIM IV ×2 (11:25→19:42)
[2024-06-03] MEDS: DEXTROSE 5% IV ×2 (11:25→19:42)
[2024-06-03] MEDS: SULFAMETHOXAZOLE IV ×2 (11:25→19:42)
[2024-06-03] MEDS: Insulin Lispro 100 UNIT/ML 3 ML VIAL SUBCUT ×3 (11:29→21:17)
--- NOTE | 2024-06-03 13:35 | P.PNNP_ITS ---
Subjective Subjective Date of Service: 06/03/24 Interval history: no acute issues overnight. All recent data reviewed. Nocardiosis Physical Exam 2 Vital Signs: Vital Signs: Last Vital Signs Temp 97.8 F 06/03/24 11:47 Pulse 60 06/03/24 11:47 Resp 18 06/03/24 11:47 BP 129/70 06/03/24 11:47 Pulse Ox 96 06/03/24 11:47 O2 Del Method Room Air 06/03/24 11:47 BMI result Body Mass Index 17.5 Const: General: no acute distress Eyes: EOM: EOMs intact bilaterally Resp: Auscultation: diminished lung sounds Cardio: Rate: regular rate GI: Palpation (GI): Soft to palpation Neuro: General: moves all extremities Objective Data Labs 06/03/24 07:24 06/03/24 07:24 Labs: Laboratory Results - last 24 hr 06/02/24 06/02/24 06/03/24 16:07 16:22 00:47 WBC RBC Hgb Hct MCV MCH MCHC RDW Plt Count MPV Absolute Nucleated RBC Nucleated RBC % (auto) Sodium Potassium Chloride Carbon Dioxide Anion Gap BUN Creatinine Estim Creat Clear Calc Estimated GFR POC Glucose 265 H 126 H Random Glucose Calcium Magnesium C-Reactive Protein Random Vancomycin 18.8 06/03/24 06/03/24 06/03/24 07:24 07:47 10:58 WBC 16.9 H RBC 3.41 L Hgb 9.8 L Hct 30.1 L MCV 88.3 MCH 28.7 MCHC 32.6 RDW 16.7 H Plt Count 329 MPV 9.1 L Absolute Nucleated RBC 0.170 H Nucleated RBC % (auto) 1.0 H Sodium 138 Potassium 2.7 L* D Chloride 101 Carbon Dioxide 27 Anion Gap 13 BUN 34 H Creatinine 1.59 H Estim Creat Clear Calc 27.6 Estimated GFR 33 POC Glucose 144 H 293 H Random Glucose 145 H Calcium 8.5 Magnesium 1.7 C-Reactive Protein 1.41 H Random Vancomycin Microbiology Microbiology Results: Microbiology 06/01/24 14:25 Thigh Right Gram Stain - Final 06/01/24 14:25 Thigh Right Routine Culture - Preliminary Gram positive mabreen 05/27/24 21:48 Blood - Venous Blood Culture - Final No growth after 5 days. 05/27/24 21:44 Blood - Venous Blood Culture - Final No growth after 5 days. Procedures Date of Service Date of Service: 06/03/24 Assessment & Plan Assessment and plan (1) ESRD (end stage renal disease) on dialysis: Status: Acute Plan Usually gets HD on MWF Shall dialyze tomorrow Could get K replacement today Has a functioning AVF Low Na/K diet with fluid restriction Procrit [id number] MWF to keep Hb ~ 10 Continue rest of current management for now Progress Note: Quality Stroke Does the patient have a stroke diagnosis?: No
--- NOTE | 2024-06-03 13:45 | P.PNIM_ITS ---
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 Review of Systems Review of Systems: Yes all other systems are reviewed and are negative Physical Exam 2 Vital Signs: Vital Signs: Last Vital Signs Temp 97.8 F 06/03/24 11:47 Pulse 60 06/03/24 11:47 Resp 18 06/03/24 11:47 BP 129/70 06/03/24 11:47 Pulse Ox 96 06/03/24 11:47 O2 Del Method Room Air 06/03/24 11:47 BMI result Body Mass Index 17.5 Gen: in no acute distress, muscle wasting HEENT: sclera anicteric, moist mucus membranes Neck: supple Lungs: port R subclavian, diminished breath sounds Heart: regular rate and rhythm, no murmurs Abd: soft, non-tender, non-distended Ext: no edema Skin: warm/well-perfused, multiple skin nodules Neuro: alert and oriented x3, LUE and LLE with 3/5 strength Psych: appropriate affect Objective Data Active Medications Acetaminophen (Acetaminophen 325 Mg Tablet) 650 mg PO Q6H PRN PRN Reason: Pain, Mild 1-3,fever,headache Last Admin: 06/01/24 18:17 Dose: 650 mg Documented By: HENRIK Calcium Carbonate (Calcium Carbonate 750 Mg Tab.Chew) 750 mg PO Q4H PRN PRN Reason: Heartburn Carvedilol (Carvedilol 25 Mg Tablet) 25 mg PO BID [facility]; Protocol Last Admin: 06/03/24 09:32 Dose: 25 mg Documented By: NO Dexamethasone Sodium Phosphate (Dexamethasone Sod Phosphate 4 Mg/Ml Vial) 4 mg PO Q8H [facility] Last Admin: 06/03/24 09:33 Dose: 4 mg Documented By: NO Dextrose (Dextrose 50 % 25 Gm/50 Ml Syringe) 25 gm IVPUSH Q15M PRN; Protocol PRN Reason: per Hypoglycemia Standing Ord. Diphenhydramine HCl (Diphenhydramine Hcl 25 Mg Capsule) 25 mg PO BID PRN PRN Reason: itchiness Docusate Sodium (Docusate Sodium 100 Mg Capsule) 100 mg PO DAILY PRN PRN Reason: Constipation Epoetin Bassem-epbx (Epoetin Bassem-Epbx 20,000 Unit/Ml Vial) 20,000 unit SUBCUT MOWEFR [facility] Last Admin: 06/02/24 12:35 Dose: 20,000 unit Documented By: HENRIK Glucose (Glucose Gel 15 Gm Gel..Gram.) 15 gm PO Q15M PRN; Protocol PRN Reason: per Hypoglycemia Standing Ord. Heparin Sodium (Porcine) (Heparin Sodium,Porcine 5,000 Unit/Ml Vial) 5,000 unit SUBCUT Q12H [facility] Last Admin: 06/03/24 01:11 Dose: 5,000 unit Documented By: TERESA Linezolid (Zyvox/D5w) 600 mg in 300 mls @ 300 mls/hr IV Q12H [facility] Last Infusion: 06/03/24 11:17 Dose: Infused Documented By: NO Trimethoprim/Sulfamethoxazole (184 mg/ Dextrose) 511.5 mls @ 225 mls/hr IV Q8H [facility] Last Admin: 06/03/24 11:25 Dose: 225 mls/hr Documented By: NO Insulin Human Lispro (Insulin Lispro 100 Unit/Ml 3 Ml Vial) 0 unit SUBCUT QIDACHS [facility]; Protocol Last Admin: 06/03/24 11:29 Dose: 10 unit Documented By: NO Isosorbide Mononitrate (Isosorbide Mononitrate 30 Mg Tab.Er.24h) 30 mg PO DAILY [facility]; Protocol Last Admin: 06/03/24 09:32 Dose: 30 mg Documented By: NO Lidocaine HCl (Lidocaine Hcl 1 % Mpf 2 Ml Vial) 0.5 ml SUBCUT MOWEFR@1645 [facility] Last Admin: 06/03/24 07:50 Dose: Not Given Documented By: NO Non-Admin Reason: administered in dialysis Loperamide HCl (Loperamide Hcl 2 Mg Capsule) 2 mg PO Q4H PRN PRN Reason: diarrhea Last Admin: 06/01/24 17:38 Dose: 2 mg Documented By: NICKY Magnesium Hydroxide (Milk Of Magnesia 30 Ml Oral.Susp) 30 ml PO DAILY PRN PRN Reason: Constipation Magnesium Oxide (Magnesium Oxide 400 Mg Tablet) 400 mg PO BID [facility] Last Admin: 06/03/24 09:33 Dose: 400 mg Documented By: NO Melatonin (Melatonin 3 Mg Tablet) 6 mg PO BEDTIME PRN PRN Reason: Insomnia Last Admin: 05/31/24 22:39 Dose: 6 mg Documented By: CECELIA Multivitamins/Vitamin C (Multivitamin Tablet) 1 tab PO DAILY [facility] Last Admin: 06/03/24 09:33 Dose: 1 tab Documented By: NO Non-Formulary Medication ( Tacrolimus 1 Mg Tablet Extended Release 24 Hr) 8 mg PO DAILY [facility] Last Admin: 06/03/24 09:35 Dose: 8 mg Documented By: NO Omeprazole (Omeprazole 20 Mg Capsule.Dr) 20 mg PO DAILY@0630 [facility] Last Admin: 06/03/24 06:08 Dose: Not Given Documented By: TERESA Non-Admin Reason: CANNOT CRUSH Ondansetron HCl (Ondansetron Hcl 4 Mg/2 Ml Vial) 4 mg IVPUSH Q8H PRN PRN Reason: Nausea and Vomiting Polyethylene Glycol (Polyethylene Glycol 3350 17 Gm Powd.Pack) 17 gm PO DAILY PRN PRN Reason: Constipation Sertraline HCl (Sertraline Hcl 25 Mg Tablet) 25 mg PO DAILY [facility] Last Admin: 06/03/24 09:33 Dose: 25 mg Documented By: NO Sodium Bicarbonate (Sodium Bicarbonate 650 Mg Tablet) 1,300 mg PO BID [facility] Last Admin: 06/03/24 09:33 Dose: 1,300 mg Documented By: NO Sodium Chloride (0.9 % Sodium Chloride Flush 3 Ml Syringe) 3 ml IVFLUSH QSHIFT [facility] Last Admin: 06/03/24 09:33 Dose: 3 ml Documented By: NO Sucralfate (Sucralfate 1 Gm Tablet) 1 gm PO QIDACHS [facility] Last Admin: 06/03/24 11:29 Dose: 1 gm Documented By: NO Labs 06/03/24 07:24 06/03/24 07:24 Labs: Laboratory Results - last 24 hr 06/02/24 06/02/24 06/03/24 16:07 16:22 00:47 MCV MCH MCHC RDW Plt Count MPV Absolute Nucleated RBC Nucleated RBC % (auto) Anion Gap Estim Creat Clear Calc Estimated GFR POC Glucose 265 H 126 H Random Glucose Calcium Magnesium C-Reactive Protein Random Vancomycin 18.8 06/03/24 06/03/24 06/03/24 07:24 07:47 10:58 MCV 88.3 MCH 28.7 MCHC 32.6 RDW 16.7 H Plt Count 329 MPV 9.1 L Absolute Nucleated RBC 0.170 H Nucleated RBC % (auto) 1.0 H Anion Gap 13 Estim Creat Clear Calc 27.6 Estimated GFR 33 POC Glucose 144 H 293 H Random Glucose 145 H Calcium 8.5 Magnesium 1.7 C-Reactive Protein 1.41 H Random Vancomycin Microbiology Microbiology Results: Microbiology 06/01/24 14:25 Gram Stain - Final Thigh Right Routine Culture - Preliminary Gram positive ambreen Assessment and Plan (1) Mass of lung parenchyma: Status: Acute (2) Encephalopathy: Status: Acute (3) Severe malnutrition: Status: Acute (4) Pneumonia, community acquired: Status: Acute Plan d7 for 64yo F with ESRD on HD MWF with failed transplant, HTN, HLD, HFrEF, DM2, GERD, esophagitis presented with weakness, missed HD on 05/26, found to be febrile due to PNA developed LUE/LLE weakness concerning for stroke MRI showed peripherally enhancing nodules within the right thalamus, left parietal lobe and at the right temporo-occipital junction maybe secondary to metastatic disease or an inflammatory/infectious CT chest showed spiculated soft tissue masses both lungs largest in the right middle lobe laterally and posterior right upper lobe, necrotic appearing pleural based lesions right hemithorax; findings consistent with advanced malignancy; suspected right basilar loculated pleural abscess measuring up to 9 cm, smooth interlobular septal thickening right greater than left lungs with small layering pleural effusion findings consistent with super imposed pulmonary edema fluid from thigh nodule with Gram-positive filamentous bacteria 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, lung, brain] - Micro to send for Nocardia cultures/speciation/susceptibilities; will consult ID and start renally-dosed TMP-SMX and linezolid [discuss with Pharmacy whether we can order amikacin + imipenem] - will d/c vanco + pip-david started 06/01; previously was on ceftriaxone + azithromycin 05/28-06/01 - taper dexamethasone over next 3d then resume usual dose of prednisone 7.5 mg/d - Pulm following - TTE with no vegetations - BCx x2 negative anemia of ESRD - improved after transfused 1u pRBCs 05/29; FOBT negative; gave epo 65964 units 05/29 and continue MWF hyperK - resolved after HD 05/28 ESRD on HD - continue HD MWF renal transplant - continue prednisone + tacrolimus chronic HFrEF - continue Imdur, carvedilol - volume management by dialysis GERD esophagitis - PPI, sucralfate DM2 -elevated blood sugars likely due to steroids, adjust malaika-dose lispro mood disorder - sertraline severe malnutrition - continue supplements stage II pressure injury sacrum - seen by wound nurse; continue foam dressing and protection from friction and moisture and protect bony prominences, high-protein diet. dispo - PT recommended home with services; will also need home infusion via port VTE ppx - UFH In my clinical judgment, patient requires continued inpatient hospitalization for the following reasons: IV ABX and expert consultation Total time managing care of this patient today: 65 minutes. Quality Stroke Does the patient have a stroke diagnosis?: No VTE Prior VTE?: No VTE Risk Level:: Medical - moderate - high VTE Device Contraindication: N/A - Device Ordered VTE Drug Contraindication: N/A - Med Ordered
[2024-06-03 15:22] LABS: Glucose, Whole Blood 306 mg/dL (60-115)
[2024-06-03] MEDS: dexAMETHasone sod phosphate 4 MG/ML VIAL 1 MG PO (16:29)
[2024-06-03] MEDS: LORazepam 2 MG/ML VIAL 0.5 MG IVPUSH (16:50)
[2024-06-03 20:26] LABS: Glucose, Whole Blood 272 mg/dL (60-115)
[2024-06-04] VITALS (9 sets, daily range): BP systolic 140–180; BP diastolic 60–81; PULSE 57–65; RESP 16–22; TEMP 36.6–37.1; O2SAT 99–100
[2024-06-04] MEDS: TRIMETHOPRIM IV ×3 (02:28→22:53)
[2024-06-04] MEDS: DEXTROSE 5% IV ×3 (02:28→22:53)
[2024-06-04] MEDS: SULFAMETHOXAZOLE IV ×3 (02:28→22:53)
[2024-06-04] MEDS: Heparin Sodium,Porcine 5,000 UNIT/ML VIAL 5000 UNIT SUBCUT ×2 (02:31→13:14)
[2024-06-04] MEDS: 0.9 % Sodium Chloride Flush 3 ML SYRINGE IVFLUSH ×3 (02:31→17:01)
[2024-06-04] MEDS: dexAMETHasone sod phosphate 4 MG/ML VIAL 1 MG PO ×2 (06:17→17:01)
[2024-06-04 07:12] LABS: Glucose, Whole Blood 89 mg/dL (60-115)
[2024-06-04 07:39] LABS: Anion Gap 14 (12-20); Blood Urea Nitrogen 44 mg/dL (9-16); Calcium 8.3 mg/dL (8.4-10.2); Carbon Dioxide 24 mmol/L (22-29); Chloride 98 mmol/L (96-108); Creatinine Clr Calc Pharmacy 20.5; Estimated Glomerular Filt Rate 23; Glucose Random 77 mg/dL (60-115); Sodium 133 mmol/L (135-145)
[2024-06-04 07:59] LABS: Potassium 2.5 mmol/L (3.3-5.1)
[2024-06-04 08:52] LABS: Magnesium 1.6 mg/dL (1.6-2.6)
--- NOTE | 2024-06-04 09:27 | MHC.SL.SWA ---
Speech Pathologist Impression: Risk of Aspiration Due to: Dysphasia Diet Status: Recommend discharge Speech service at this time, continue on current diet of Chopped/Advanced (NDD3) with Thin Liquids, Pills whole with liquid. Liquid Consistency and Strategies for Safe Swallow: Liquid Intake Recommendation: Thin Liquid Intake Strategies: Small Sips Solid Food Consistency: Dietary Recommendations: Chopped/Advanced (NDD3) Additional Modifications to Solid Foods: POLICY ISSUE CLERK continues to recommend chopped/advanced diet (NDD3), permitting soft sandwiches (i.e. tuna salad, chicken salad, pb&j) as requested from the kitchenette. Patient prefers crusts removed. Patient demonstrates some impulsivity feeding herself (i.e. packing mouth, speaking with mouth full of food), and will need direct supervision and cues as needed for safe feeding strategies: take one bite, chew food well, clear oral cavity before taking next bite, alternate with sips of liquid. Oral Medication Intake: Whole with Liquid Please contact the pharmacy regarding appropriate crushable or liquid drug formulations that are available whenever modified delivery is recommended. Compensatory Strategies and Precautions to be Taken for Safe Swallow: Sitting Upright (90 deg) Small Bites and Sips Alternate Liquids/Solids Rate of Ingestion Change Avoid Specific Foods Supervision While Eating and Drinking for Safe Swallow: Intermittent Supervision Foods to Avoid: Avoid overly tough, hard to chew solids Swallowing Recommended Treatments: Compens. Strategy Educat. Recommendation for Speech: Inpatient Speech Therapy Comment: POLICY ISSUE CLERK continues to recommend chopped/advanced diet (NDD3), permitting soft sandwiches (i.e. tuna salad, chicken salad, pb&j) as requested from the kitchenette. Patient prefers crusts removed. Patient demonstrates some impulsivity feeding herself (i.e. packing mouth, speaking with mouth full of food), and will need direct supervision and cues as needed for safe feeding strategies: take one bite, chew food well, clear oral cavity before taking next bite, alternate with sips of liquid. Frequency/Duration: Date Range for Service Req: Timeline to reassess: Convention Services Manager Clinican/Clinical Fellow: No Supervisory Statement: I have reviewed and agree with the student/clinical fellow's documentation: N/A Speech Language Pathologist: Augusta Goodwin M.A., CCC-POLICY ISSUE CLERK
--- NOTE | 2024-06-04 10:35 | MHC.CM.PN ---
Addendum entered by Augusta Hutton RN 06/04/24 11:53: PT/OT NOW RECOMMENDING STR, REF PLACED TO [facility] PT HAS BEEN THERE BEFORE AND JANNIE MCMAHON D/T PROXIMITY TO PT'S OUTPT HD IN [facility]. Original Note: EMR REVIEWED, PER MULTIDISCIPLINARY ROUNDS PT WILL NEED IV ABX BID X 6WKS D/T SPECIFIC INFECTION AND UNABLE TO COMPLETE AT OUTPT HD, REFERRAL PLACED TO [facility] AND [facility] UPDATED, CM WILLL CHECK IN W/PT TO SEE WHO WOULD BE ABLE TO COME IN FOR TEACH ON WEDNESDAY 06/07, CM WILL CONT TO FOLLOW DC NEEDS.
[2024-06-04] MEDS: TACROLIMUS 1 MG 8 EACH PO (11:00)
[2024-06-04] MEDS: Magnesium Oxide 400 MG TABLET PO ×2 (11:01→23:35)
[2024-06-04] MEDS: Sodium Bicarbonate 650 MG TABLET 1300 MG PO ×2 (11:01→23:35)
[2024-06-04] MEDS: Potassium Chloride Packet 20 MEQ PACKET 40 MEQ PO (11:01)
[2024-06-04] MEDS: Linezolid/D5W 600 MG/300 ML PIGGYBACK 300 MG IV (11:01)
[2024-06-04] MEDS: Multivitamin TABLET 1 TAB PO (11:01)
[2024-06-04] MEDS: Sertraline HCL 25 MG TABLET PO (11:01)
[2024-06-04] MEDS: Isosorbide Mononitrate 30 MG TAB.ER.24H PO (11:01)
[2024-06-04] MEDS: carvediloL 25 MG TABLET PO ×2 (11:01→23:35)
[2024-06-04] MEDS: Sucralfate 1 GM TABLET PO ×3 (11:04→23:35)
--- NOTE | 2024-06-04 11:13 | P.PNIM_ITS ---
Subjective Subjective Date of Service: 06/04/24 Interval History: LUE weakness improving no headache minimal cough Review of Systems Review of Systems: Yes all other systems are reviewed and are negative Physical Exam 2 Vital Signs: Vital Signs: Last Vital Signs Temp 98.2 F 06/04/24 07:26 Pulse 65 06/04/24 07:26 Resp 18 06/04/24 07:26 BP 180/62 H 06/04/24 11:01 Pulse Ox 99 06/04/24 07:26 O2 Del Method Room Air 06/04/24 07:26 BMI result Body Mass Index 17.5 Gen: in no acute distress, muscle wasting HEENT: sclera anicteric, moist mucus membranes Neck: supple Lungs: port R subclavian, diminished breath sounds Heart: regular rate and rhythm, no murmurs Abd: soft, non-tender, non-distended Ext: no edema Skin: warm/well-perfused, multiple skin nodules Neuro: alert and oriented x3, LUE and LLE with 4/5 strength Psych: appropriate affect Objective Data Active Medications Acetaminophen (Acetaminophen 325 Mg Tablet) 650 mg PO Q6H PRN PRN Reason: Pain, Mild 1-3,fever,headache Last Admin: 06/01/24 18:17 Dose: 650 mg Documented By: HENRIK Calcium Carbonate (Calcium Carbonate 750 Mg Tab.Chew) 750 mg PO Q4H PRN PRN Reason: Heartburn Carvedilol (Carvedilol 25 Mg Tablet) 25 mg PO BID [facility]; Protocol Last Admin: 06/04/24 11:01 Dose: 25 mg Documented By: NO Dexamethasone Sodium Phosphate (Dexamethasone Sod Phosphate 4 Mg/Ml Vial) 4 mg PO Q12H [facility]; Taper Stop: 06/06/24 15:59 Last Admin: 06/04/24 06:17 Dose: 4 mg Documented By: GILMER Dextrose (Dextrose 50 % 25 Gm/50 Ml Syringe) 25 gm IVPUSH Q15M PRN; Protocol PRN Reason: per Hypoglycemia Standing Ord. Diphenhydramine HCl (Diphenhydramine Hcl 25 Mg Capsule) 25 mg PO BID PRN PRN Reason: itchiness Docusate Sodium (Docusate Sodium 100 Mg Capsule) 100 mg PO DAILY PRN PRN Reason: Constipation Epoetin Bassem-epbx (Epoetin Bassem-Epbx 20,000 Unit/Ml Vial) 20,000 unit SUBCUT MOWEFR [facility] Last Admin: 06/02/24 12:35 Dose: 20,000 unit Documented By: HENRIK Glucose (Glucose Gel 15 Gm Gel..Gram.) 15 gm PO Q15M PRN; Protocol PRN Reason: per Hypoglycemia Standing Ord. Heparin Sodium (Porcine) (Heparin Sodium,Porcine 5,000 Unit/Ml Vial) 5,000 unit SUBCUT Q12H [facility] Last Admin: 06/04/24 02:31 Dose: 5,000 unit Documented By: GILMER Linezolid (Zyvox/D5w) 600 mg in 300 mls @ 300 mls/hr IV Q12H [facility] Last Admin: 06/04/24 11:01 Dose: 300 mls/hr Documented By: NO Trimethoprim/Sulfamethoxazole (184 mg/ Dextrose) 511.5 mls @ 225 mls/hr IV Q8H [facility] Last Infusion: 06/04/24 04:45 Dose: Infused Documented By: GILMER Potassium Chloride (Potassium Chloride/H20) 10 meq in 100 mls @ 100 mls/hr IV Q1H [facility] Stop: 06/04/24 12:59 Insulin Human Lispro (Insulin Lispro 100 Unit/Ml 3 Ml Vial) 0 unit SUBCUT QIDACHS [facility]; Protocol Last Admin: 06/04/24 07:20 Dose: Not Given Documented By: NO Non-Admin Reason: No Insulin Coverage Isosorbide Mononitrate (Isosorbide Mononitrate 30 Mg Tab.Er.24h) 30 mg PO DAILY [facility]; Protocol Last Admin: 06/04/24 11:01 Dose: 30 mg Documented By: NO Lidocaine HCl (Lidocaine Hcl 1 % Mpf 2 Ml Vial) 0.5 ml SUBCUT MOWEFR@1645 [facility] Last Admin: 06/03/24 07:50 Dose: Not Given Documented By: NO Non-Admin Reason: administered in dialysis Loperamide HCl (Loperamide Hcl 2 Mg Capsule) 2 mg PO Q4H PRN PRN Reason: diarrhea Last Admin: 06/01/24 17:38 Dose: 2 mg Documented By: NICKY Magnesium Hydroxide (Milk Of Magnesia 30 Ml Oral.Susp) 30 ml PO DAILY PRN PRN Reason: Constipation Magnesium Oxide (Magnesium Oxide 400 Mg Tablet) 400 mg PO BID [facility] Last Admin: 06/04/24 11:01 Dose: 400 mg Documented By: NO Melatonin (Melatonin 3 Mg Tablet) 6 mg PO BEDTIME PRN PRN Reason: Insomnia Last Admin: 05/31/24 22:39 Dose: 6 mg Documented By: CECELIA Multivitamins/Vitamin C (Multivitamin Tablet) 1 tab PO DAILY [facility] Last Admin: 06/04/24 11:01 Dose: 1 tab Documented By: NO Non-Formulary Medication ( Tacrolimus 1 Mg Tablet Extended Release 24 Hr) 8 mg PO DAILY [facility] Last Admin: 06/04/24 11:00 Dose: 8 mg Documented By: NO Omeprazole (Omeprazole 20 Mg Capsule.Dr) 20 mg PO DAILY@0630 [facility] Last Admin: 06/04/24 06:24 Dose: Not Given Documented By: GILMER Non-Admin Reason: Patient Refused Ondansetron HCl (Ondansetron Hcl 4 Mg/2 Ml Vial) 4 mg IVPUSH Q8H PRN PRN Reason: Nausea and Vomiting Polyethylene Glycol (Polyethylene Glycol 3350 17 Gm Powd.Pack) 17 gm PO DAILY PRN PRN Reason: Constipation Prednisone (Prednisone 2.5 Mg Tablet) 7.5 mg PO DAILY [facility] Sertraline HCl (Sertraline Hcl 25 Mg Tablet) 25 mg PO DAILY [facility] Last Admin: 06/04/24 11:01 Dose: 25 mg Documented By: NO Sodium Bicarbonate (Sodium Bicarbonate 650 Mg Tablet) 1,300 mg PO BID [facility] Last Admin: 06/04/24 11:01 Dose: 1,300 mg Documented By: NO Sodium Chloride (0.9 % Sodium Chloride Flush 3 Ml Syringe) 3 ml IVFLUSH QSHIFT [facility] Last Admin: 06/04/24 11:02 Dose: 3 ml Documented By: NO Sucralfate (Sucralfate 1 Gm Tablet) 1 gm PO QIDACHS [facility] Last Admin: 06/04/24 11:04 Dose: 1 gm Documented By: NO Labs 06/03/24 07:24 06/04/24 06:22 Labs: Laboratory Results - last 24 hr 06/03/24 06/03/2406/03/25 08:57 15:16 20:22 Hold Purple Top Anion Gap Estim Creat Clear Calc Estimated GFR POC Glucose 306 H 272 H Random Glucose Calcium Magnesium Cryptococcal Ag SEE NOTE 06/04/24 06/04/24 06:22 07:02 Hold Purple Top SEE NOTE Anion Gap 14 Estim Creat Clear Calc 20.5 Estimated GFR 23 POC Glucose 89 Random Glucose 77 Calcium 8.3 L Magnesium 1.6 Cryptococcal Ag Microbiology Microbiology Results: Microbiology 06/01/24 14:25 Gram Stain - Final Thigh Right Routine Culture - Preliminary Gram positive ambreen Assessment and Plan (1) Mass of lung parenchyma: Status: Acute (2) Encephalopathy: Status: Acute (3) Severe malnutrition: Status: Acute (4) Pneumonia, community acquired: Status: Acute Plan d8 for 64yo F with ESRD on HD MWF with failed transplant, HTN, HLD, HFrEF, DM2, GERD, esophagitis presented with weakness, missed HD on 05/26, found to be febrile due to PNA developed LUE/LLE weakness concerning for stroke MRI showed peripherally enhancing nodules within the right thalamus, left parietal lobe and at the right temporo-occipital junction maybe secondary to metastatic disease or an inflammatory/infectious CT chest showed spiculated soft tissue masses both lungs largest in the right middle lobe laterally and posterior right upper lobe, necrotic appearing pleural based lesions right hemithorax; findings consistent with advanced malignancy; suspected right basilar loculated pleural abscess measuring up to 9 cm, smooth interlobular septal thickening right greater than left lungs with small layering pleural effusion findings consistent with super imposed pulmonary edema fluid from thigh nodule with Gram-positive filamentous bacteria; 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, lung, brain] - Micro sent out sample for Nocardia cultures/speciation/susceptibilities; ID consulted; pending consultation, started renally-dosed TMP-SMX and linezolid on 06/03 [discuss with Pharmacy whether we can order amikacin + imipenem] - previously was on ceftriaxone + azithromycin 05/28-06/01, then vanco + piperacillin-tazobactam 06/01-06/03 - continue to taper dexamethasone [started for concern of cerebral edema fron brain mets] over next 2d then resume usual dose of prednisone 7.5 mg/d - Pulm following; CXR as above - TTE with no vegetations - BCx x2 negative anemia of ESRD - improved after transfused 1u pRBCs 05/29; FOBT negative; gave epo 39415 units 05/29 and continue MWF hypoK - replete IV/PO; recheck level in AM hyperK - resolved after HD 05/28 ESRD on HD - continue HD MWF renal transplant - continue prednisone + tacrolimus chronic HFrEF - continue Imdur, carvedilol - volume management by dialysis GERD esophagitis - PPI, sucralfate DM2 -elevated blood sugars likely due to steroids, adjust malaika-dose lispro mood disorder - sertraline severe malnutrition - continue supplements stage II pressure injury sacrum - seen by wound nurse; continue foam dressing and protection from friction and moisture and protect bony prominences, high-protein diet. dispo - PT recommended home with services; will also need home infusion q8h via port VTE ppx - UFH In my clinical judgment, patient requires continued inpatient hospitalization for the following reasons: IV ABX and expert consultation Total time managing care of this patient today: 45 minutes. Quality Stroke Does the patient have a stroke diagnosis?: No VTE Prior VTE?: No VTE Risk Level:: Medical - moderate - high VTE Device Contraindication: N/A - Device Ordered VTE Drug Contraindication: N/A - Med Ordered
[2024-06-04 11:28] LABS: Glucose, Whole Blood 160 mg/dL (60-115)
[2024-06-04] MEDS: Insulin Lispro 100 UNIT/ML 3 ML VIAL SUBCUT ×2 (11:32→17:01)
[2024-06-04] MEDS: Potassium Chloride/H20 10 MEQ/100 ML PIGGYBACK 100 MEQ IV ×2 (11:33→15:46)
--- NOTE | 2024-06-04 13:46 | MHC.CLN ---
F/U DIET RX:2000DM, 2 GRAM SODIUM, LOW POTASSIUM CHOPPED-APPROPRIATE ENSURE CLEAR TID SUPPLEMENT APPROPRIATE TO PROMOTE WOUND HEALING. SUPPLEMENT PROVIDES 720 KCALS, 24 G PROTEIN AND IS RENAL FRIENDLY. INTAKE AT MEALS VARIABLE, 50-100%. SKIN WITH STAGE II TO COCCYX. MONITOR PO INTAKE AND ENCOURAGE SUPPLEMENT.
--- NOTE | 2024-06-04 16:13 | P.PNNP_ITS ---
Subjective Subjective Date of Service: 06/04/24 Interval history: LUE weakness improving. Due HD today. Feels better Physical Exam 2 Vital Signs: Vital Signs: Last Vital Signs Temp 98.7 F 06/04/24 15:24 Pulse 61 06/04/24 15:24 Resp 18 06/04/24 15:24 BP 152/72 H 06/04/24 15:24 Pulse Ox 100 06/04/24 15:24 O2 Del Method Room Air 06/04/24 15:24 BMI result Body Mass Index 17.5 Const: General: no acute distress Orientation/consciousness: patient oriented x3 Eyes: EOM: EOMs intact bilaterally Resp: Auscultation: diminished lung sounds Cardio: Rate: regular rate GI: Palpation (GI): Soft to palpation Neuro: General: patient oriented x3 Objective Data Labs 06/03/24 07:24 06/04/24 06:22 Labs: Laboratory Results - last 24 hr 06/03/24 06/03/24 06/04/24 08:57 20:22 06:22 Hold Purple Top SEE NOTE Sodium 133 L Potassium 2.5 L* Chloride 98 Carbon Dioxide 24 Anion Gap 14 BUN 44 H Creatinine 2.15 H Estim Creat Clear Calc 20.5 Estimated GFR 23 POC Glucose 272 H Random Glucose 77 Calcium 8.3 L Magnesium 1.6 Cryptococcal Ag SEE NOTE 06/04/24 06/04/24 07:02 11:22 Hold Purple Top Sodium Potassium Chloride Carbon Dioxide Anion Gap BUN Creatinine Estim Creat Clear Calc Estimated GFR POC Glucose 89 160 H Random Glucose Calcium Magnesium Cryptococcal Ag Microbiology Microbiology Results: Microbiology 06/01/24 14:25 Thigh Right Gram Stain - Final 06/01/24 14:25 Thigh Right Routine Culture - Preliminary Gram positive ambreen 05/27/24 21:48 Blood - Venous Blood Culture - Final No growth after 5 days. 05/27/24 21:44 Blood - Venous Blood Culture - Final No growth after 5 days. Procedures Date of Service Date of Service: 06/04/24 Assessment & Plan Assessment and plan (1) ESRD (end stage renal disease) on dialysis: Status: Acute Plan Usually gets HD on MWF Shall dialyze today Has a functioning AVF Low Na/K diet with fluid restriction Procrit 92023 MWF to keep Hb ~ 10 Getting treatment for Nocardiosis Continue rest of current management for now Progress Note: Quality Stroke Does the patient have a stroke diagnosis?: No
[2024-06-04 16:20] LABS: Glucose, Whole Blood 183 mg/dL (60-115)
[2024-06-04 18:33] LABS: Legionella Ag Urine Not Detected (Not Detected); Strep Pneumo Ag urine Not Detected (Not Detected)
[2024-06-04 20:40] LABS: Glucose, Whole Blood 129 mg/dL (60-115)
[2024-06-05] VITALS (9 sets, daily range): BP systolic 134–198; BP diastolic 70–86; PULSE 61–98; RESP 14–20; TEMP 36.6–36.9; O2SAT 92–100
[2024-06-05] MEDS: HYDROmorphone HCl 1 MG/ML SYRINGE IVPUSH (00:02)
[2024-06-05] MEDS: 0.9 % Sodium Chloride Flush 3 ML SYRINGE IVFLUSH ×2 (00:28→21:50)
[2024-06-05] MEDS: Linezolid/D5W 600 MG/300 ML PIGGYBACK 300 MG IV ×3 (01:50→21:49)
[2024-06-05] MEDS: Heparin Sodium,Porcine 5,000 UNIT/ML VIAL 5000 UNIT SUBCUT ×2 (01:51→12:36)
[2024-06-05] MEDS: dexAMETHasone sod phosphate 4 MG/ML VIAL 1 MG PO (06:14)
[2024-06-05] MEDS: DEXTROSE 5% IV ×2 (06:48→17:16)
[2024-06-05] MEDS: SULFAMETHOXAZOLE IV ×2 (06:48→17:16)
[2024-06-05] MEDS: TRIMETHOPRIM IV ×2 (06:48→17:16)
[2024-06-05 07:44] LABS: Glucose, Whole Blood 129 mg/dL (60-115)
[2024-06-05] MEDS: Isosorbide Mononitrate 30 MG TAB.ER.24H PO (08:23)
[2024-06-05] MEDS: Magnesium Oxide 400 MG TABLET PO ×2 (08:24→21:48)
[2024-06-05] MEDS: Sertraline HCL 25 MG TABLET PO (08:24)
[2024-06-05] MEDS: Sucralfate 1 GM TABLET PO ×4 (08:24→21:47)
[2024-06-05] MEDS: Multivitamin TABLET 1 TAB PO (08:24)
[2024-06-05] MEDS: carvediloL 25 MG TABLET PO ×2 (08:24→21:46)
[2024-06-05] MEDS: Sodium Bicarbonate 650 MG TABLET 1300 MG PO ×2 (08:24→21:47)
[2024-06-05] MEDS: TACROLIMUS 1 MG 8 EACH PO (08:27)
[2024-06-05 09:04] LABS: Blood Urea Nitrogen 24 mg/dL (9-16); Creatinine Clr Calc Pharmacy 27.9; Estimated Glomerular Filt Rate 33; Glucose Fasting 134 mg/dL (60-99)
[2024-06-05 09:23] LABS: Anion Gap 15 (12-20); Carbon Dioxide 25 mmol/L (22-29); Chloride 98 mmol/L (96-108); Potassium 2.9 mmol/L (3.3-5.1); Sodium 135 mmol/L (135-145)
[2024-06-05] MEDS: Potassium Chloride ER 20 MEQ TAB.ER.PRT 40 MEQ PO (10:04)
[2024-06-05 10:31] LABS: Neutrophils Absolute Auto 12.3 x10*3/uL (2.0-8.3); White Blood Count 15.2 X10*3/uL (4.8-10.8)
--- NOTE | 2024-06-05 11:38 | HO.PM.IMPN ---
Subjective Subjective Date of Service: 06/05/24 Interval History: appetite is improving markedly LUE still weak had HD yesterday Review of Systems Review of Systems: Yes all other systems are reviewed and are negative Physical Exam Vital Signs: Vital Signs: Last Vital Signs Temp 98.1 F 06/05/24 07:49 Pulse 64 06/05/24 07:49 Resp 18 06/05/24 07:49 BP 169/80 H 06/05/24 07:49 Pulse Ox 92 06/05/24 07:49 O2 Del Method Room Air 06/05/24 07:49 BMI result Body Mass Index 17.5 Gen: in no acute distress, muscle wasting HEENT: sclera anicteric, moist mucus membranes Neck: supple Lungs: port R subclavian, diminished breath sounds Heart: regular rate and rhythm, no murmurs Abd: soft, non-tender, non-distended Ext: no edema Skin: warm/well-perfused, multiple skin nodules Neuro: alert and oriented x3, LUE and LLE with 4/5 strength Psych: appropriate affect Objective Data Active Medications Acetaminophen (Acetaminophen 325 Mg Tablet) 650 mg PO Q6H PRN PRN Reason: Pain, Mild 1-3,fever,headache Last Admin: 06/01/24 18:17 Dose: 650 mg Documented By: HENRIK Calcium Carbonate (Calcium Carbonate 750 Mg Tab.Chew) 750 mg PO Q4H PRN PRN Reason: Heartburn Carvedilol (Carvedilol 25 Mg Tablet) 25 mg PO BID LIVIER; Protocol Last Admin: 06/05/24 08:24 Dose: 25 mg Documented By: HENRIK Dexamethasone Sodium Phosphate (Dexamethasone Sod Phosphate 4 Mg/Ml Vial) 2 mg PO Q12H LIVIER; Taper Stop: 06/06/24 15:59 Last Admin: 06/05/24 06:14 Dose: 2 mg Documented By: ERROL Dextrose (Dextrose 50 % 25 Gm/50 Ml Syringe) 25 gm IVPUSH Q15M PRN; Protocol PRN Reason: per Hypoglycemia Standing Ord. Diphenhydramine HCl (Diphenhydramine Hcl 25 Mg Capsule) 25 mg PO BID PRN PRN Reason: itchiness Docusate Sodium (Docusate Sodium 100 Mg Capsule) 100 mg PO DAILY PRN PRN Reason: Constipation Epoetin Bassem-epbx (Epoetin Bassem-Epbx 20,000 Unit/Ml Vial) 20,000 unit SUBCUT MOWEFR [facility] Last Admin: 06/04/24 13:14 Dose: 20,000 unit Documented By: NO Glucose (Glucose Gel 15 Gm Gel..Gram.) 15 gm PO Q15M PRN; Protocol PRN Reason: per Hypoglycemia Standing Ord. Heparin Sodium (Porcine) (Heparin Sodium,Porcine 5,000 Unit/Ml Vial) 5,000 unit SUBCUT Q12H [facility] Last Admin: 06/05/24 01:51 Dose: 5,000 unit Documented By: ERROL Linezolid (Zyvox/D5w) 600 mg in 300 mls @ 300 mls/hr IV Q12H [facility] Last Admin: 06/05/24 10:05 Dose: 300 mls/hr Documented By: HENRIK Trimethoprim/Sulfamethoxazole (184 mg/ Dextrose) 511.5 mls @ 225 mls/hr IV Q8H [facility] Insulin Human Lispro (Insulin Lispro 100 Unit/Ml 3 Ml Vial) 0 unit SUBCUT QIDACHS [facility]; Protocol Last Admin: 06/05/24 08:13 Dose: Not Given Documented By: HENRIK Non-Admin Reason: No Insulin Coverage Isosorbide Mononitrate (Isosorbide Mononitrate 30 Mg Tab.Er.24h) 30 mg PO DAILY [facility]; Protocol Last Admin: 06/05/24 08:23 Dose: 30 mg Documented By: HENRIK Lidocaine HCl (Lidocaine Hcl 1 % Mpf 2 Ml Vial) 0.5 ml SUBCUT MOWEFR@1645 [facility] Last Admin: 06/05/24 08:24 Dose: Not Given Documented By: HENRIK Non-Admin Reason: dialysis med Loperamide HCl (Loperamide Hcl 2 Mg Capsule) 2 mg PO Q4H PRN PRN Reason: diarrhea Last Admin: 06/01/24 17:38 Dose: 2 mg Documented By: NICKY Magnesium Hydroxide (Milk Of Magnesia 30 Ml Oral.Susp) 30 ml PO DAILY PRN PRN Reason: Constipation Magnesium Oxide (Magnesium Oxide 400 Mg Tablet) 400 mg PO BID [facility] Last Admin: 06/05/24 08:24 Dose: 400 mg Documented By: HENRIK Melatonin (Melatonin 3 Mg Tablet) 6 mg PO BEDTIME PRN PRN Reason: Insomnia Last Admin: 05/31/24 22:39 Dose: 6 mg Documented By: CECELIA Multivitamins/Vitamin C (Multivitamin Tablet) 1 tab PO DAILY [facility] Last Admin: 06/05/24 08:24 Dose: 1 tab Documented By: HENRIK Non-Formulary Medication ( Tacrolimus 1 Mg Tablet Extended Release 24 Hr) 8 mg PO DAILY [facility] Last Admin: 06/05/24 08:27 Dose: 8 mg Documented By: HENRIK Omeprazole (Omeprazole 20 Mg Capsule.Dr) 20 mg PO DAILY@0630 [facility] Last Admin: 06/05/24 06:17 Dose: Not Given Documented By: ERROL Non-Admin Reason: Patient Refused Ondansetron HCl (Ondansetron Hcl 4 Mg/2 Ml Vial) 4 mg IVPUSH Q8H PRN PRN Reason: Nausea and Vomiting Polyethylene Glycol (Polyethylene Glycol 3350 17 Gm Powd.Pack) 17 gm PO DAILY PRN PRN Reason: Constipation Prednisone (Prednisone 2.5 Mg Tablet) 7.5 mg PO DAILY [facility] Sertraline HCl (Sertraline Hcl 25 Mg Tablet) 25 mg PO DAILY [facility] Last Admin: 06/05/24 08:24 Dose: 25 mg Documented By: HENRIK Sodium Bicarbonate (Sodium Bicarbonate 650 Mg Tablet) 1,300 mg PO BID [facility] Last Admin: 06/05/24 08:24 Dose: 1,300 mg Documented By: HENRIK Sodium Chloride (0.9 % Sodium Chloride Flush 3 Ml Syringe) 3 ml IVFLUSH QSHIFT [facility] Last Admin: 06/05/24 08:24 Dose: Not Given Documented By: HENRIK Non-Admin Reason: IV Running Sucralfate (Sucralfate 1 Gm Tablet) 1 gm PO QIDACHS [facility] Last Admin: 06/05/24 08:24 Dose: 1 gm Documented By: HENRIK Labs 06/05/24 08:01 06/05/24 08:01 Labs: Laboratory Results - last 24 hr 05/31/24 06/04/24 06/04/24 17:47 16:13 20:36 Absolute Neuts (auto) Hold Purple Top Anion Gap Estim Creat Clear Calc Estimated GFR POC Glucose 183 H 129 H Fasting Glucose Calcium Ur L.pneumophila Ag Not Detected Ur Strep pneumoniae Ag Not Detected 06/05/24 06/05/24 07:40 08:01 Absolute Neuts (auto) 12.3 H Hold Purple Top SEE NOTE Anion Gap 15 Estim Creat Clear Calc 27.9 Estimated GFR 33 POC Glucose 129 H Fasting Glucose 134 H Calcium 8.0 L Ur L.pneumophila Ag Ur Strep pneumoniae Ag Microbiology Microbiology Results: Microbiology 06/01/24 14:25 Gram Stain - Final Thigh Right Routine Culture - Preliminary Gram positive ambreen Assessment and Plan (1) Mass of lung parenchyma: Status: Acute (2) Encephalopathy: Status: Acute (3) Severe malnutrition: Status: Acute (4) Pneumonia, community acquired: Status: Acute Plan d9 for 64yo F with ESRD on HD MWF with failed transplant, HTN, HLD, HFrEF, DM2, GERD, esophagitis presented with weakness, missed HD on 05/26, found to be febrile due to PNA developed LUE/LLE weakness concerning for stroke MRI showed peripherally enhancing nodules within the right thalamus, left parietal lobe and at the right temporo-occipital junction maybe secondary to metastatic disease or an inflammatory/infectious CT chest showed spiculated soft tissue masses both lungs largest in the right middle lobe laterally and posterior right upper lobe, necrotic appearing pleural based lesions right hemithorax; findings consistent with advanced malignancy; suspected right basilar loculated pleural abscess measuring up to 9 cm, smooth interlobular septal thickening right greater than left lungs with small layering pleural effusion findings consistent with super imposed pulmonary edema fluid from thigh nodule with Gram-positive filamentous bacteria 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 [skin, lung, brain] - Micro sent out sample for Nocardia cultures/speciation/susceptibilities; ID consulted; pending consultation, started renally-dosed TMP-SMX and linezolid on 06/03, plan total 6 weeks - previously was on ceftriaxone + azithromycin 05/28-06/01, then vanco + piperacillin-tazobactam 06/01-06/03 - continue to taper dexamethasone [started for concern of cerebral edema fron brain mets] over next 1d then resume usual dose of prednisone 7.5 mg/d on 06/07 - Pulm following - TTE with no vegetations - BCx x2 negative anemia of ESRD - improved after transfused 1u pRBCs 05/29; FOBT negative; gave epo 52419 units 05/29 and continue epo MWF with HD hypoK - replete PO rather than IV given ESRD; recheck level in AM hyperK - resolved after HD 05/28 ESRD on HD - continue HD MWF renal transplant - continue prednisone + tacrolimus chronic HFrEF - continue Imdur, carvedilol - volume management by dialysis GERD esophagitis - PPI, sucralfate DM2 -elevated blood sugars likely due to steroids, adjust malaika-dose lispro mood disorder - sertraline severe malnutrition - continue supplements stage II pressure injury sacrum - seen by wound nurse; continue foam dressing and protection from friction and moisture and protect bony prominences, high-protein diet. dispo - PT recommended home with services; will also need home infusion of TMP-SMX q8h via port; the linezolid can be PO VTE ppx - UFH In my clinical judgment, patient requires continued inpatient hospitalization for the following reasons: IV ABX and expert consultation Total time managing care of this patient today: 45 minutes. Quality Stroke Does the patient have a stroke diagnosis?: No VTE Prior VTE?: No VTE Risk Level:: Medical - moderate - high VTE Device Contraindication: N/A - Device Ordered VTE Drug Contraindication: N/A - Med Ordered
[2024-06-05 12:00] LABS: Glucose, Whole Blood 182 mg/dL (60-115)
--- NOTE | 2024-06-05 12:07 | PM.DS ---
DS: Providers Provider Date of Service: 06/05/24 <Malik Orozco MD - Last Filed: 06/05/24 12:14> 06/16/24 <Ab Barba MD - Last Filed: 06/16/24 16:33> Date of admission: 05/28/24 02:08 <Malik Orozco MD - Last Filed: 06/05/24 12:14> Date of discharge: 06/05/24 <Malik Orozco MD - Last Filed: 06/05/24 12:14> 06/16/24 <Ab Barba MD - Last Filed: 06/16/24 16:33> Primary care physician: Marita Wetzel DO <Malik Orozco MD - Last Filed: 06/05/24 12:14> Consults: 05/28/24 06:15 Consult to Nephrology Routine Consulting Provider: [facility] Reason for consultation: ESRD on HD Has provider been notified: Yes 05/28/24 15:02 Consult to Wound Care Routine Reason for consultation: open wound to coccyx and R thigh Has provider been notified: No 05/30/24 11:38 Consult to Neurology Routine Consulting Provider: [facility] Reason for consultation: CVA, symptom onset 2/7 6pm 05/31/24 14:36 Consult to Pulmonology Routine Consulting Provider: [facility] Reason for consultation: lung mass concerning for malignancy /? abscess Has provider been notified: No 06/01/24 08:46 Consult to General Surgery Routine Consulting Provider: L[facility] Toussaint Reason for consultation: skin abscess need i/d and c/s Has provider been notified: No 06/03/24 08:03 Consult to Infectious Diseases Routine Consulting Provider: [facility] Reason for consultation: [employer]/lung/skin infection- Nocardia? <Malik Orozco MD - Last Filed: 06/05/24 12:14> DS: Diagnosis Discharge Diagnosis (1) Brain mass: Status: Acute <Malik Orozco MD - Last Filed: 06/05/24 12:14> (2) Lung mass: Status: Acute <Malik Orozco MD - Last Filed: 06/05/24 12:14> (3) Skin nodule: Status: Acute <Malik Orozco MD - Last Filed: 06/05/24 12:14> (4) Disseminated nocardiosis: Status: Acute <Malik Orozco MD - Last Filed: 06/05/24 12:14> (5) Immunosuppression due to drug therapy: Status: Acute <Malik Orozco MD - Last Filed: 06/05/24 12:14> (6) ESRD (end stage renal disease) on dialysis: Status: Acute <Malik Orozco MD - Last Filed: 06/05/24 12:14> DS: Summary Hospital Course Hospital Course: From the history and physical by the admitting hospitalist, Laek Dugan MD, 05/28/24: 64 year old with history of ESRD on HD MWF, hypertension, hyperlipidemia, HFrEF, T2DM, GERD with esophagitis, presents to the ER from home via EMS with multiple complains including feeling generally unwell with headaches, shortness of breath and mild abdominal pain. She is a poor historian and her son had already left the ER when I got to see her so most of the history is from the emergency room provider who got to speak to her son. She apparently lives alone and has been unwell for sometime now and that yesterday, she was very ill and missed her dialysis session. On arrival to the emergency room, she was febrile with a temperature of had a fever 101.1? F and a blood work done revealed a leukocytosis of 19.4 kg with 84% neutrophils. She was anemic with a hemoglobin of 8.5 and a hematocrit of 28.2. Additionally her potassium was elevated at 6.9 and high sensitivity troponin I was also mildly elevated at 21.7 but she has had no chest pain and EKG done did not show any ischemic changes. A chest x-ray done showed a right mid lung and left lower lobe patchy consolidation concerning for multifocal pneumonia and also diffuse interstitial prominence and small right pleural effusion but may represent a pulmonary edema /fluid overload. She received IV antibiotics ( ceftriaxone and azithromycin), Lokelma and the sodium bicarbonate at admission was requested for continued care. 64yo F with ESRD on HD MWF with failed transplant, HTN, HLD, HFrEF, DM2, GERD, esophagitis presented with weakness, missed HD on 05/26, found to be febrile due to PNA and admitted to the telemetry unit for IV antibiotics for community-acquired PNA. She developed LUE/LLE weakness concerning for stroke leading to workup including MRI of the brain. MRI showed peripherally enhancing nodules within the right thalamus, left parietal lobe and at the right temporo-occipital junction maybe secondary to metastatic disease or an inflammatory/infectious. Suspicion was then that she had metastases from a lung cancer. CT chest showed spiculated soft tissue masses both lungs largest in the right middle lobe laterally and posterior right upper lobe, necrotic appearing pleural based lesions right hemithorax; findings consistent with advanced malignancy; suspected right basilar loculated pleural abscess measuring up to 9 cm, smooth interlobular septal thickening right greater than left lungs with small layering pleural effusion findings consistent with super imposed pulmonary edema. However, it was noted then that she had multiple subcutaneous nodules, raising the possibility of a disseminated atypical infection. 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 Nicolasa Katz to obtain final report anemia of ESRD - improved after 1u pRBCs 05/29; FOBT negative; continue epo MWF with HD hypoK repleted hyperK - resolved after HD 05/28 ESRD on HD - continue HD MWF renal transplant - continue prednisone + tacrolimus chronic HFrEF - continue Imdur, carvedilol, volume management by dialysis GERD /esophagitis continue PPI, sucralfate DM2 - on correction dose lispro mood disorder continue sertraline severe malnutrition - continue supplements stage II pressure injury sacrum - seen by wound nurse; continue foam dressing and protection from friction and moisture and protect bony prominences, high-protein diet. <Malik Orozco MD - Last Filed: 06/05/24 12:14> Time Attestation Discharge Coordination Time (in mins): 40 <Ab Barba MD - Last Filed: 06/16/24 16:33> Quality: Safe Use of Opioids Does Pt have an Active Cancer Diagnosis on the Problem List?: No <Ab Barba MD - Last Filed: 06/16/24 16:33> Quality: Stroke Does the patient have a stroke diagnosis?: No <Ab Barba MD - Last Filed: 06/16/24 16:33> Physical Exam Vital Signs: Vital Signs: Last Vital Signs Temp 98.3 F 06/05/24 11:37 Pulse 67 06/05/24 11:37 Resp 20 06/05/24 11:37 BP 182/86 H 06/05/24 11:37 Pulse Ox 100 06/05/24 11:37 O2 Del Method Room Air 06/05/24 11:37 BMI result Body Mass Index 17.5 Gen: in no acute distress, muscle wasting HEENT: sclera anicteric, moist mucus membranes Neck: supple Lungs: port R subclavian, diminished breath sounds Heart: regular rate and rhythm, no murmurs Abd: soft, non-tender, non-distended Ext: no edema Skin: warm/well-perfused, multiple skin nodules Neuro: alert and oriented x3, LUE and LLE with 4/5 strength Psych: appropriate affect <Malik Orozco MD - Last Filed: 06/05/24 12:14> Const: Other: Gen: in no acute distress, muscle wasting HEENT: sclera anicteric, moist mucus membranes Neck: supple Lungs: port R subclavian, diminished breath sounds Heart: regular rate and rhythm, no murmurs Abd: soft, non-tender, non-distended Ext: no edema Skin: warm/well-perfused Neuro: alert and oriented x3, LUE and LLE strength improving Psych: appropriate affect <Ab Barba MD - Last Filed: 06/16/24 16:33> DS: Data Data Completed and Pending Completed studies during hospitalization [Text1]: Laboratory Results WBC 15.2 X10*3/uL (4.8-10.8) H 06/05/24 08:01 RBC 3.41 X10*6/uL (4.20-5.50) L 06/03/24 07:24 Hgb 9.8 g/dl (12.0-16.0) L 06/03/24 07:24 Hct 30.1 % (37.0-47.0) L 06/03/24 07:24 MCV 88.3 fL (80.0-98.0) 06/03/24 07:24 MCH 28.7 pg (27.0-33.0) 06/03/24 07:24 MCHC 32.6 g/dl (31.0-35.0) 06/03/24 07:24 RDW 16.7 % (11.0-16.0) H 06/03/24 07:24 Plt Count 329 X10*3/uL (160-400) 06/03/24 07:24 MPV 9.1 fL (9.4-12.3) L 06/03/24 07:24 Immature Gran % (Auto) 1.8 % (0.0-0.4) H 05/28/24 06:50 Neut % (Auto) 84.1 % (45-73) H 05/28/24 06:50 Lymph % (Auto) 4.7 % (20-40) L 05/28/24 06:50 Larue % (Auto) 8.9 % (2-11) 05/28/24 06:50 Eos % (Auto) 0.2 % (0-4) 05/28/24 06:50 Baso % (Auto) 0.3 % (0-2) 05/28/24 06:50 Lymph # (Auto) 0.8 X10*3/uL (1.2-4.9) L 05/28/24 06:50 Larue # (Auto) 1.5 X10*3/uL (0.1-1.2) H 05/28/24 06:50 Eos # (Auto) 0.0 X10*3/uL (0.0-0.4) 05/28/24 06:50 Baso # (Auto) 0.1 X10*3/uL (0.0-0.2) 05/28/24 06:50 Abs Immat Gran (auto) 0.30 X10*3/uL (0.00-0.03) H 05/28/24 06:50 Absolute Neuts (auto) 12.3 x10*3/uL (2.0-8.3) H 06/05/24 08:01 Absolute Nucleated RBC 0.170 X10*3/uL (0.0-0.012) H 06/03/24 07:24 Nucleated RBC % (auto) 1.0 /100WBC (0.0-0.2) H 06/03/24 07:24 Smear Tech's Comments VERIFIED 05/28/24 06:50 Smear Path Review SEE NOTE 05/29/24 07:55 Absolute Retic 0.034 X10*6/uL (0.026-0.095) 05/28/24 03:02 Percent Retic 1.2 % (0.5-1.8) 05/28/24 03:02 Immature Retic Fraction 11.1 % (3.0-15.9) 05/28/24 03:02 Retic Hgb Equivalent 25.2 pg (30.0-35.0) L 05/28/24 03:02 Hold Purple Top SEE NOTE 06/05/24 08:01 PT 12.6 SEC (10.9-12.4) H 05/27/24 20:14 INR 1.1 (0.9-1.1) 05/27/24 20:14 Sodium 135 mmol/L (135-145) 06/05/24 08:01 Potassium 2.9 mmol/L (3.3-5.1) L* 06/05/24 08:01 Chloride 98 mmol/L (96-108) 06/05/24 08:01 Carbon Dioxide 25 mmol/L (22-29) 06/05/24 08:01 Anion Gap 15 (12-20) 06/05/24 08:01 BUN 24 mg/dL (9-16) H 06/05/24 08:01 Creatinine 1.58 mg/dL (0.5-1.4) H 06/05/24 08:01 Estim Creat Clear Calc 27.9 06/05/24 08:01 Estimated GFR 33 06/05/24 08:01 POC Glucose 182 mg/dL (60-115) H 06/05/24 11:42 Random Glucose 77 mg/dL (60-115) 06/04/24 06:22 Fasting Glucose 134 mg/dL (60-99) H 06/05/24 08:01 Lactic Acid 0.5 mmol/L (0.5-2.0) 05/27/24 21:44 Calcium 8.0 mg/dL (8.4-10.2) L 06/05/24 08:01 Phosphorus 2.0 mg/dL (2.7-4.5) L 05/28/24 03:02 Magnesium 1.6 mg/dL (1.6-2.6) 06/04/24 06:22 Iron 19 mcg/dL (30-160) L 05/28/24 03:02 TIBC 87 mcg/dL (228-428) L 05/28/24 03:02 % Saturation 22 % (15-50) 05/28/24 03:02 Unsat Iron Binding 68 ug/dL 05/28/24 03:02 Ferritin 9043 ng/mL (10-250) H 05/28/24 03:02 Total Bilirubin 0.4 mg/dL (0.0-1.0) 05/28/24 06:50 AST 18 U/L (5-31) 05/28/24 06:50 ALT < 6 U/L (0-31) 05/28/24 06:50 Alkaline Phosphatase 64 U/L (39-117) 05/28/24 06:50 Lactate Dehydrogenase 195 U/L (122-220) 05/28/24 03:02 Troponin I High Sens 21.7 ng/L (<3.5-17.0) H 05/27/24 20:14 C-Reactive Protein 1.41 mg/dL (< or = 0.50) H 06/03/24 07:24 Total Protein 6.6 g/dL (6.5-8.0) 05/28/24 06:50 Albumin 2.4 g/dL (3.5-5.0) L 05/28/24 06:50 Lipase 9 U/L (8-78) 05/27/24 20:14 Vitamin B12 424 pg/mL (200-900) 05/29/24 07:55 Folate 12.6 ng/mL (> or = 4.0) 05/29/24 07:55 Procalcitonin 1.00 ng/mL 05/30/24 07:24 Urine Color Yellow 05/31/24 17:47 Urine Appearance Clear 05/31/24 17:47 Urine pH 8.0 (5.0-9.0) 05/31/24 17:47 Ur Specific [place] 1.025 (1.005-1.025) 05/31/24 17:47 Urine Protein 100 (2+) mg/dL (Neg-Trace) H 05/31/24 17:47 Urine Glucose (UA) 250 mg/dL (Negative) H 05/31/24 17:47 Urine Ketones Negative mg/dL (Negative) 05/31/24 17:47 Urine Blood Negative (Negative) 05/31/24 17:47 Urine Nitrite Negative (Negative) 05/31/24 17:47 Ur Leukocyte Esterase Negative (Negative) 05/31/24 17:47 Urine RBC 0-2 /HPF (0-2) 05/31/24 17:47 Urine WBC 0-5 /HPF (0-5) 05/31/24 17:47 Ur Squamous Epith Cells 0-2 /HPF (0-2) 05/31/24 17:47 Calcium Oxalate Crystal Present 05/31/24 17:47 Urine Bacteria None Seen (None Seen) 05/31/24 17:47 Hyaline Casts 3-5 /LPF (0-2) 05/31/24 17:47 Nasal Screen MRSA (PCR) NEGATIVE (Negative) 05/31/24 17:05 Nasal S. aureus Screen NEGATIVE (Negative) 05/31/24 17:05 Nasal MRSA/S.aureus Interp SEE NOTE 05/31/24 17:05 Stool Occult Blood NEGATIVE (NEGATIVE) 05/29/24 17:20 Random Vancomycin 18.8 mcg/mL (15-20) 06/02/24 16:22 IgG Total 1461 mg/dL (600-1540) 05/31/24 16:45 IgA Total 753 mg/dL (70-320) H 05/31/24 16:45 IgM 32 mg/dL (50-300) L 05/31/24 16:45 Proteinase 3 (PR3) Ab <1.0 AI 05/31/24 16:45 Myeloperoxidase Ab <1.0 AI 05/31/24 16:45 Respiratory Panel Davila See Note 05/31/24 17:05 Adenovirus (Rapid PCR) Not Detected (Not Detect.) 05/31/24 17:05 B.pert (TEM-PCR) Not Detected (Not Detect.) 05/31/24 17:05 B.parapertussis DNA PCR Not Detected (Not Detect.) 05/31/24 17:05 C. pneumoniae DNA (PCR) Not Detected (Not Detect.) 05/31/24 17:05 Coronavirus OC43 (PCR) Not Detected (Not Detect.) 05/31/24 17:05 Coronavirus HKU1 (PCR) Not Detected (Not Detect.) 05/31/24 17:05 Coronavirus 229E (PCR) Not Detected (Not Detect.) 05/31/24 17:05 Coronavirus NL63 (PCR) Not Detected (Not Detect.) 05/31/24 17:05 Hepatitis C Ab (EIA) Nonreactive (Nonreactive) 06/01/24 10:23 HIV 1&2 Ab/P24 Ag 4thGn Nonreactive (Nonreactive) 06/01/24 10:23 Human Metapneumovir PCR Not Detected (Not Detect.) 05/31/24 17:05 Influenza A (RT-PCR) Not Detected (Not Detect.) 05/31/24 17:05 Influenza Type A (PCR) NEGATIVE (Negative) 05/27/24 20:14 Influenza B (RT-PCR) Not Detected (Not Detect.) 05/31/24 17:05 Influenza Type B (PCR) NEGATIVE (Negative) 05/27/24 20:14 Ur L.pneumophila Ag Not Detected (Not Detected) 05/31/24 17:47 M. pneumoniae (PCR) Not Detected (Not Detect.) 05/31/24 17:05 Parainfluenza 1 (PCR) Not Detected (Not Detect.) 05/31/24 17:05 Parainfluenza 2 (PCR) Not Detected (Not Detect.) 05/31/24 17:05 Parainfluenza 3 (PCR) Not Detected (Not Detect.) 05/31/24 17:05 Parainfluenza 4 (PCR) Not Detected (Not Detect.) 05/31/24 17:05 RSV (PCR) Not Detected (Not Detect.) 05/31/24 17:05 RSV RNA Qual (PCR) NEGATIVE (Negative) 05/27/24 20:14 Entero/Rhino (PCR) Not Detected (Not Detect.) 05/31/24 17:05 SARS-CoV-2 RNA (RT-PCR) Not Detected (Not Detect.) 05/31/24 17:05 Ur Strep pneumoniae Ag Not Detected (Not Detected) 05/31/24 17:47 Cryptococcal Ag SEE NOTE 06/03/24 08:57 Blood Type A Positive 05/29/24 09:06 Antibody Screen NEGATIVE 05/29/24 09:06 Crossmatch See Detail 05/29/24 09:06 Impressions Carotid Doppler Study 05/30/24 13:41 IMPRESSION: 1. Normal carotid ultrasound. 2. 2.4 x 1.9 x 2.2 cm mass in the right neck suspicious for a necrotic lymph node. If further imaging is desired, CT of the neck with contrast is suggested. Electronically signed by: Db Berry MD 05/31/2024 08:12 AM EST RP Chest CT 05/31/24 07:00 IMPRESSION: 1. Spiculated soft tissue masses in both lungs, largest in the right middle lobe laterally and posterior right upper lobe. Necrotic appearing pleural based lesions right hemithorax. Right hilar low attenuating lymph nodes and borderline enlarged mediastinal nodes. Findings are consistent with advanced malignancy. 2. Suspect right basilar loculated pleural abscess as described, measuring up to 9 cm approximately. 3. Smooth interlobular septal thickening right greater than left lungs, with small layering pleural effusions, findings consistent with superimposed pulmonary edema. 4. Mild cardiomegaly with predominantly left atrial enlargement. Findings suggesting elevated pulmonary and right heart pressures. 5. Anasarca. 6. Refer to the above for detailed. Findings communicated to Dr. Orozco via secure text at 9:34 AM, 05/31/2024. Electronically signed by: Timmy Fajardo MD 05/31/2024 09:35 AM EST RP MRI brain 05/30/24 There are peripherally enhancing nodules within the right thalamus, left parietal lobe and at the right temporo-occipital junction. This may be secondary to metastatic disease or an inflammatory/ infectious process. <Malik Orozco MD - Last Filed: 06/05/24 12:14> Discharge Plan Discharge Anticipated Discharge Date/Time: 06/16/24 14:38 <Malik Orozco MD - Last Filed: 06/05/24 12:14> Patient Disposition: Home Health Service <Malik Orozco MD - Last Filed: 06/05/24 12:14> Discharge Diagnosis: disseminated nocardiosis <Malik Orozco MD - Last Filed: 06/05/24 12:14> disseminated nocardiosis <Ab Barba MD - Last Filed: 06/16/24 16:33> Referrals: [facility] [Other] - 1 Day ([facility] WILL DELIEVER YOUR IV ANTIBIOTICS AND SUPPLIES, PLEASE FEEL FREE TO CALL [phone] AND FOLLOW PROMPTS FOR NURSING SUPPORT OVER THE PHONE. ) [facility] [Outside] - 1 Day ([facility] FOR IV ANTIBIOTICS, A NURSE WILL SEE YOU TOMORROW 06/17 AT 9AM, RESUMPTION OF OT/PT. ) Kim Katz MD [Physician] - 2 Weeks Marita Wetzel DO [Primary Care Provider] - 1 Week Nirav Osborn MD [Physician] - 2 Weeks <Malik Orozco MD - Last Filed: 06/05/24 12:14> Discharge Medications: New linezolid [Zyvox] 600 mg tablet 600 mg PO BID Qty: 80 0RF sulfamethoxazole-trimethoprim 400-80 mg/5 mL solution 11.5 ml IV Q8H Continued Procrit 40,000 unit/mL solution 40,000 unit IV MO Rx Instructions: 05/28/24:Spoke to inpatient pharmacy at [facility] to confirm dose. [facility] confirmed that patient hasn't received while she was inpatient. They may be getting it out patient. Spoke to out patient renal unit and they have not seen patient yet. multivitamin Tablet 1 tab PO DAILY tacrolimus 4 mg Tablet Extended Release 24 Hr 8 mg PO DAILY@0730 Rx Instructions: must be taken on empty stomach magnesium oxide 400 mg magnesium Tablet 400 mg PO BID carvedilol 25 mg Tablet 25 mg PO BID Rx Instructions: must administer with a meal/food acetaminophen 325 mg Tablet 650 mg PO Q6H PRN (Reason: Fever) sucralfate 1 gram Tablet 1 g PO QIDACHS isosorbide mononitrate 30 mg Tablet Extended Release 24 Hr 30 mg PO DAILY sodium bicarbonate 650 mg Tablet 1,300 mg PO BID prednisone 2.5 mg Tablet 7.5 mg PO DAILY pantoprazole 40 mg Tablet,Delayed Release (Dr/Ec) 40 mg PO DAILY@0630 diphenhydramine HCl 25 mg Tablet 25 mg PO BID PRN (Reason: itchiness) docusate sodium 100 mg Capsule 100 mg PO BID PRN (Reason: Constipation) sertraline 25 mg Tablet 25 mg PO DAILY hydromorphone 4 mg Tablet 4 mg PO Q4H PRN (Reason: moderate to severe pain) insulin lispro 200 unit/mL (3 mL) Insulin Pen 2 - 10 sliding scale dose SUBCUT TID Rx Instructions: if 150-199 = 2 units, 200-249 = 4 units, 250-299 = 6 units, 300-349 = 8 units, 350-399 = 10 units, 400+ call MD <Malik Orozco MD - Last Filed: 06/05/24 12:14> Discharge Orders: Discharge Order (Routine); Ordered 06/16/24 Ordered By: Ab Barba <Malik Orozco MD - Last Filed: 06/05/24 12:14> Diet: Diabetic diet <Malik Orozco MD - Last Filed: 06/05/24 12:14> Diabetic diet <Ab Barba MD - Last Filed: 06/16/24 16:33> Activity on Discharge: As tolerated <Malik Orozco MD - Last Filed: 06/05/24 12:14> As tolerated <Ab Barba MD - Last Filed: 06/16/24 16:33> Stand Alone Forms: Patient Portal Discharge page <Malik Orozco MD - Last Filed: 06/05/24 12:14> Print Language: Croatian <Malik Orozco MD - Last Filed: 06/05/24 12:14> Care Plan Goals: continue all home medications as before <Malik Orozco MD - Last Filed: 06/05/24 12:14> Health Concerns: disseminated nocardiosis <Malki Orozco MD - Last Filed: 06/05/24 12:14> Plan of Treatment: IV Bactrim and PO linezolid, end date 07/15/24 on Wednesdays and Friday take IV Bactrim at 15:00 since receive hemodialysis at 13:00 follow up with [facility] [Dr Nicolasa Katz] and [facility] Pulmonology [Dr Nirav Osborn] in 1- 2 weeks, call for appointment continue dialysis MWF Please follow up with your primary care doctor within 1 week. Return to the hospital if you experience recurrent or worsening symptoms. <Malik Orozco MD - Last Filed: 06/05/24 12:14> Assessment: as above <Malik Orozco MD - Last Filed: 06/05/24 12:14>
[2024-06-05] MEDS: Insulin Lispro 100 UNIT/ML 3 ML VIAL SUBCUT ×2 (12:36→21:50)
--- NOTE | 2024-06-05 15:46 | MHC.CM.PN ---
Addendum entered by Jannie Brush 06/07/24 08:14: CM RECEIVED A CALL FROM PTS , JOSE G, HE REPORTS THE PT DOES HAVE HELP AT HOME AND HE DOES NOT FEEL A SNF WOULD BE GOOD FOR HER. HE STATES HE AND HIS SON HAVE BEEN PREPARING THE HOME FOR HER RETURN, INCLUDING ORDERING A HOSPITAL BED AND CLEARING AN AREA IN THE FRONT ROOM OF THE HOME SO THAT VISITORS CAN ACCESS HER MORE EASILY. HE STATES WHEN SHE DID GO TO A SNF, SHE DID NOT DO WELL AND BECAME DEPRESSED. HE STATES HE HAS HAD THIS PROBLEM BEFORE WITH PHARMACIES TELLING HIM THINGS ARE NOT COVERED, AND WHEN HE CALLS , THEY FIX IT. HE STATES HE WOULD LIKE TO CALL ON FRIDAY MORNING AND TRY TO GET HER MEDS/SUPPLIES COVERED BEFORE AGREEING TO STR PLACEMENT. Original Note: CM MET WITH PT TO DISCUSS DC PLANNING SHE SAYS SHE IS NOT WILLING TO GO TO STR SHE IS AWARE [facility] HAS INDICATED HER MEDS WILL NOT BE COVERED AND SHE WILL HAVE TO PAY OUT OF POCKET SHE STATES HER WILL CALL THEM ON FRIDAY IT SHOULD BE COVERED AND SHE HAS NEVER HAD THIS PROBLEM BEFORE MESSAGE SENT TO [facility] TO DETERMINE WHY PTS MEDS WOULD NOT BE COVERED [facility] STATES THEY WOULD BE WILLING TO DO A SAME DAY VISIT ON FRIDAY IF PT HAD TEACH AND MEDS WERE DELIVERED BY 1400 HOURS THAT DAY.
[2024-06-05 15:59] LABS: Glucose, Whole Blood 145 mg/dL (60-115)
[2024-06-05 20:38] LABS: Glucose, Whole Blood 207 mg/dL (60-115)
--- NOTE | 2024-06-05 22:00 | W.PM.IDCN ---
History of Present Illness Data of Consult Service Date: 06/04/24 Requesting physician: Malik Orozco Primary Care Provider: DO PAT Conley Reason for consult: brain,lung lesions,leg ulcer right She presents with weakness and fatigue for a week. She has lost weight. She is HIV negative. SHe has lesions lung cavities and brain lesions on MRI. She has right thigh lesions biopsied. 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) Kidney transplant status History of appendectomy H/O cardiac catheterization Social History Social History Household Members: Spouse Housing: House Do you presently have visiting nurse or other home services: Yes Alcohol intake: never Comment: patient is bedbound at this time Patient Tobacco Use Status: Never used Tobacco service: Yes Meds Allergies Allergy/AdvReac Type Severity Reaction Status Date / Time codeine [CODEINE] Allergy Intermediate Hives and Verified 05/27/24 17:47 pruritus oxycodone [OXYCODONE] Allergy Intermediate HIVES Verified 05/27/24 17:47 Active Medications: Current Medications Acetaminophen (Acetaminophen 325 Mg Tablet) 650 mg PO Q6H PRN PRN Reason: Pain, Mild 1-3,fever,headache Last Admin: 06/01/24 18:17 Dose: 650 mg Calcium Carbonate (Calcium Carbonate 750 Mg Tab.Chew) 750 mg PO Q4H PRN PRN Reason: Heartburn Carvedilol (Carvedilol 25 Mg Tablet) 25 mg PO BID [facility]; Protocol Last Admin: 06/05/24 21:46 Dose: 25 mg Dexamethasone (Dexamethasone 0.5 Mg Tablet) 1 mg PO Q12H [facility] Stop: 06/06/24 15:59 Last Admin: 06/05/24 17:43 Dose: 1 mg Dextrose (Dextrose 50 % 25 Gm/50 Ml Syringe) 25 gm IVPUSH Q15M PRN; Protocol PRN Reason: per Hypoglycemia Standing Ord. Diphenhydramine HCl (Diphenhydramine Hcl 25 Mg Capsule) 25 mg PO BID PRN PRN Reason: itchiness Docusate Sodium (Docusate Sodium 100 Mg Capsule) 100 mg PO DAILY PRN PRN Reason: Constipation Epoetin Natali-epbx (Epoetin Natali-Epbx 20,000 Unit/Ml Vial) 20,000 unit SUBCUT MOWEFR [facility] Last Admin: 06/04/24 13:14 Dose: 20,000 unit Glucose (Glucose Gel 15 Gm Gel..Gram.) 15 gm PO Q15M PRN; Protocol PRN Reason: per Hypoglycemia Standing Ord. Heparin Sodium (Porcine) (Heparin Sodium,Porcine 5,000 Unit/Ml Vial) 5,000 unit SUBCUT Q12H [facility] Last Admin: 06/05/24 12:36 Dose: 5,000 unit Hydromorphone HCl (Hydromorphone Hcl 2 Mg Tablet) 2 mg PO ONCE ONE Stop: 06/05/24 21:44 Linezolid (Zyvox/D5w) 600 mg in 300 mls @ 300 mls/hr IV Q12H [facility] Last Admin: 06/05/24 21:49 Dose: 300 mls/hr Trimethoprim/Sulfamethoxazole (184 mg/ Dextrose) 511.5 mls @ 225 mls/hr IV Q8H [facility] Last Infusion: 06/05/24 19:33 Dose: Infused Insulin Human Lispro (Insulin Lispro 100 Unit/Ml 3 Ml Vial) 0 unit SUBCUT QIDACHS [facility]; Protocol Last Admin: 06/05/24 21:50 Dose: 8 unit Isosorbide Mononitrate (Isosorbide Mononitrate 30 Mg Tab.Er.24h) 30 mg PO DAILY [facility]; Protocol Last Admin: 06/05/24 08:23 Dose: 30 mg Lidocaine HCl (Lidocaine Hcl 1 % Mpf 2 Ml Vial) 0.5 ml SUBCUT MOWEFR@1645 [facility] Last Admin: 06/05/24 08:24 Dose: Not Given Loperamide HCl (Loperamide Hcl 2 Mg Capsule) 2 mg PO Q4H PRN PRN Reason: diarrhea Last Admin: 06/01/24 17:38 Dose: 2 mg Magnesium Hydroxide (Milk Of Magnesia 30 Ml Oral.Susp) 30 ml PO DAILY PRN PRN Reason: Constipation Magnesium Oxide (Magnesium Oxide 400 Mg Tablet) 400 mg PO BID [facility] Last Admin: 06/05/24 21:48 Dose: 400 mg Melatonin (Melatonin 3 Mg Tablet) 6 mg PO BEDTIME PRN PRN Reason: Insomnia Last Admin: 05/31/24 22:39 Dose: 6 mg Multivitamins/Vitamin C (Multivitamin Tablet) 1 tab PO DAILY [facility] Last Admin: 06/05/24 08:24 Dose: 1 tab Non-Formulary Medication ( Tacrolimus 1 Mg Tablet Extended Release 24 Hr) 8 mg PO DAILY [facility] Last Admin: 06/05/24 08:27 Dose: 8 mg Omeprazole (Omeprazole 20 Mg Capsule.Dr) 20 mg PO DAILY@0630 [facility] Last Admin: 06/05/24 06:17 Dose: Not Given Ondansetron HCl (Ondansetron Hcl 4 Mg/2 Ml Vial) 4 mg IVPUSH Q8H PRN PRN Reason: Nausea and Vomiting Polyethylene Glycol (Polyethylene Glycol 3350 17 Gm Powd.Pack) 17 gm PO DAILY PRN PRN Reason: Constipation Prednisone (Prednisone 2.5 Mg Tablet) 7.5 mg PO DAILY [facility] Sertraline HCl (Sertraline Hcl 25 Mg Tablet) 25 mg PO DAILY [facility] Last Admin: 06/05/24 08:24 Dose: 25 mg Sodium Bicarbonate (Sodium Bicarbonate 650 Mg Tablet) 1,300 mg PO BID [facility] Last Admin: 06/05/24 21:47 Dose: 1,300 mg Sodium Chloride (0.9 % Sodium Chloride Flush 3 Ml Syringe) 3 ml IVFLUSH QSHIFT [facility] Last Admin: 06/05/24 21:50 Dose: 3 ml Sucralfate (Sucralfate 1 Gm Tablet) 1 gm PO QIDACHS [facility] Last Admin: 06/05/24 21:47 Dose: 1 gm Home Medications ?Medication ?Instructions ?Recorded ?Confirmed ?Last Taken ?Type acetaminophen 325 mg tablet 650 mg PO Q6H PRN Fever 04/07/24 05/28/24 Unknown History carvedilol 25 mg tablet 25 mg PO BID 04/07/24 05/28/24 Unknown History diphenhydramine HCl 25 mg tablet 25 mg PO BID PRN itchiness 04/07/24 05/28/24 Unknown History docusate sodium 100 mg capsule 100 mg PO BID PRN Constipation 04/07/24 05/28/24 Unknown History hydromorphone 4 mg tablet 4 mg PO Q4H PRN moderate to severe 04/07/24 05/28/24 Unknown History pain insulin lispro 200 unit/mL (3 mL) 2 - 10 sliding scale dose subcut 04/07/24 05/28/24 Unknown History subcutaneous pen TID isosorbide mononitrate 30 mg 30 mg PO DAILY 04/07/24 05/28/24 Unknown History tablet,extended release 24 hr pantoprazole 40 mg tablet,delayed 40 mg PO DAILY@0630 04/07/24 05/28/24 Unknown History release prednisone 2.5 mg tablet 7.5 mg PO DAILY 04/07/24 05/28/24 Unknown History sertraline 25 mg tablet 25 mg PO DAILY 04/07/24 05/28/24 Unknown History sodium bicarbonate 650 mg tablet 1,300 mg PO BID 04/07/24 05/28/24 Unknown History sucralfate 1 gram tablet 1 g PO QIDACHS 04/07/24 05/28/24 Unknown History epoetin natali 40,000 unit/mL 40,000 unit IV MO 05/28/24 Unknown History injection solution (Procrit) magnesium oxide 400 mg PO BID 05/28/24 05/28/24 Unknown History multivitamin 1 tab PO DAILY 05/28/24 05/28/24 Unknown History tacrolimus 4 mg tablet,extended 8 mg PO DAILY@0730 05/28/24 05/28/24 Unknown History release 24 hr Physical Exam Vital Signs: Vital Signs: Last Vital Signs Temp 98.3 F 06/05/24 19:39 Pulse 64 06/05/24 21:46 Resp 14 06/05/24 19:39 BP 173/74 H 06/05/24 21:46 Pulse Ox 100 06/05/24 19:39 O2 Del Method Room Air 06/05/24 19:39 BMI result Body Mass Index 17.5 Const: General: cooperative HEENT: Head: Yes normal to inspection Face and sinus: Yes normal facial exam Mouth: Normal oral and palatal mucosa present Teeth and gingiva: dentition normal Eyes: General: appearance normal, both eyes and all related structures Pupils: Equal, round and reactive pupils present Resp: Effort & Inspection: normal respiratory effort Cardio: Rate: regular rate Rhythm: regular rhythm GI: Palpation (GI): Soft to palpation and nontender : General: Yes no CVA tenderness Back/Spine/Pelvis: Back: no CVA tenderness Skin: General skin exam: no rashes or lesions noted Neuro: General: moves all extremities Cranial nerves: Yes Equal, round and reactive pupils present Extrem: Other: lesion right leg biopsied General: Yes normal to inspection Psych: Appearance: grossly normal Results Labs 06/05/24 08:01 06/05/24 08:01 Labs: Short CBC 06/05/24 Range/Units 08:01 WBC 15.2 H (4.8-10.8) X10*3/uL BMP 06/05/24 08:01 Sodium 135 Potassium 2.9 L* Chloride 98 Carbon Dioxide 25 BUN 24 H Creatinine 1.58 H Calcium 8.0 L Microbiology Microbiology Results: Microbiology 06/01/24 14:25 Thigh Right Gram Stain - Final 06/01/24 14:25 Thigh Right Routine Culture - Preliminary Gram positive ambreen 05/27/24 21:48 Blood - Venous Blood Culture - Final No growth after 5 days. 05/27/24 21:44 Blood - Venous Blood Culture - Final No growth after 5 days. Assessment and Plan (1) Lung mass: Status: Acute (2) Skin nodule: Status: Acute (3) Brain mass: Status: Acute Plan She has possible nocardiosis with dissemination to skin,lung and brain possibley, also possible mycobacterial She has renal dysfunction. Would await final diagnosis. Can give IV Bactrim and po linezolid for six weeks and possibly po lolnger
[2024-06-05] MEDS: HYDROmorphone HCl 2 MG TABLET PO (22:06)
[2024-06-06] VITALS (10 sets, daily range): BP systolic 143–180; BP diastolic 62–88; PULSE 62–71; RESP 14–18; TEMP 36.5–37; O2SAT 96–100
[2024-06-06] MEDS: TRIMETHOPRIM IV ×4 (00:32→22:53)
[2024-06-06] MEDS: SULFAMETHOXAZOLE IV ×4 (00:32→22:53)
[2024-06-06] MEDS: DEXTROSE 5% IV ×4 (00:32→22:53)
[2024-06-06] MEDS: ondansetron HCL 4 MG/2 ML VIAL IVPUSH (00:34)
[2024-06-06] MEDS: hydrALAZINE HCl 20 MG/ML VIAL 10 MG IVPUSH (01:27)
[2024-06-06] MEDS: Omeprazole 20 MG CAPSULE.DR PO (05:05)
[2024-06-06 06:57] LABS: Anion Gap 14 (12-20); Blood Urea Nitrogen 31 mg/dL (9-16); Carbon Dioxide 26 mmol/L (22-29); Chloride 95 mmol/L (96-108); Creatinine Clr Calc Pharmacy 21.6; Estimated Glomerular Filt Rate 25; Glucose Random 89 mg/dL (60-115); Potassium 2.6 mmol/L (3.3-5.1); Sodium 132 mmol/L (135-145)
[2024-06-06 07:53] LABS: Glucose, Whole Blood 123 mg/dL (60-115)
[2024-06-06 08:32] LABS: Neutrophils Absolute Auto 11.2 x10*3/uL (2.0-8.3); White Blood Count 14.2 X10*3/uL (4.8-10.8)
[2024-06-06] MEDS: Potassium Chloride/H20 10 MEQ/100 ML PIGGYBACK 100 MEQ IV ×4 (08:47→16:11)
[2024-06-06] MEDS: Linezolid/D5W 600 MG/300 ML PIGGYBACK 300 MG IV (08:53)
[2024-06-06] MEDS: Sucralfate 1 GM TABLET PO ×4 (08:54→20:39)
[2024-06-06] MEDS: Multivitamin TABLET 1 TAB PO (08:54)
[2024-06-06] MEDS: Isosorbide Mononitrate 30 MG TAB.ER.24H PO (08:54)
[2024-06-06] MEDS: Magnesium Oxide 400 MG TABLET PO ×2 (08:54→20:40)
[2024-06-06] MEDS: carvediloL 25 MG TABLET PO ×2 (08:54→20:41)
[2024-06-06] MEDS: Sertraline HCL 25 MG TABLET PO (08:54)
[2024-06-06] MEDS: Sodium Bicarbonate 650 MG TABLET 1300 MG PO ×2 (08:54→20:39)
[2024-06-06] MEDS: 0.9 % Sodium Chloride Flush 3 ML SYRINGE IVFLUSH ×3 (08:55→20:40)
[2024-06-06] MEDS: Potassium Chloride Packet 20 MEQ PACKET 40 MEQ PO (08:55)
[2024-06-06] MEDS: TACROLIMUS 1 MG 8 EACH PO (09:15)
[2024-06-06 12:26] LABS: Glucose, Whole Blood 156 mg/dL (60-115)
--- NOTE | 2024-06-06 12:55 | HO.PM.IMPN ---
Subjective Subjective Date of Service: 06/06/24 Interval History: Complaining of persistent left upper extremity weakness, tolerating diet, no nausea no vomiting no abdominal pain, no fevers, no chills no other acute events overnight. Review of Systems All other system reviewed and are negative. Physical Exam Vital Signs: Vital Signs: Last Vital Signs Temp 98.3 F 06/06/24 12:00 Pulse 63 06/06/24 12:00 Resp 16 06/06/24 12:00 BP 150/65 H 06/06/24 12:00 Pulse Ox 98 06/06/24 12:00 O2 Del Method Room Air 06/06/24 12:00 BMI result Body Mass Index 17.5 Const: Other: Gen: in no acute distress, muscle wasting HEENT: sclera anicteric, moist mucus membranes Neck: supple Lungs: port R subclavian, diminished breath sounds Heart: regular rate and rhythm, no murmurs Abd: soft, non-tender, non-distended Ext: no edema Skin: warm/well-perfused, multiple skin nodules Neuro: alert and oriented x3, LUE and LLE with 4/5 strength Psych: appropriate affect Objective Data Active Medications Acetaminophen (Acetaminophen 325 Mg Tablet) 650 mg PO Q6H PRN PRN Reason: Pain, Mild 1-3,fever,headache Last Admin: 06/01/24 18:17 Dose: 650 mg Documented By: HENRIK Calcium Carbonate (Calcium Carbonate 750 Mg Tab.Chew) 750 mg PO Q4H PRN PRN Reason: Heartburn Carvedilol (Carvedilol 25 Mg Tablet) 25 mg PO BID [facility]; Protocol Last Admin: 06/06/24 08:54 Dose: 25 mg Documented By: RASHEEDA Dexamethasone (Dexamethasone 0.5 Mg Tablet) 1 mg PO Q12H [facility] Stop: 06/06/24 15:59 Last Admin: 06/06/24 05:05 Dose: 1 mg Documented By: JENNIFER Dextrose (Dextrose 50 % 25 Gm/50 Ml Syringe) 25 gm IVPUSH Q15M PRN; Protocol PRN Reason: per Hypoglycemia Standing Ord. Diphenhydramine HCl (Diphenhydramine Hcl 25 Mg Capsule) 25 mg PO BID PRN PRN Reason: itchiness Docusate Sodium (Docusate Sodium 100 Mg Capsule) 100 mg PO DAILY PRN PRN Reason: Constipation Epoetin Bassem-epbx (Epoetin Bassem-Epbx 20,000 Unit/Ml Vial) 20,000 unit SUBCUT MOWEFR [facility] Last Admin: 06/04/24 13:14 Dose: 20,000 unit Documented By: NO Glucose (Glucose Gel 15 Gm Gel..Gram.) 15 gm PO Q15M PRN; Protocol PRN Reason: per Hypoglycemia Standing Ord. Heparin Sodium (Porcine) (Heparin Sodium,Porcine 5,000 Unit/Ml Vial) 5,000 unit SUBCUT Q12H [facility] Last Admin: 06/06/24 04:03 Dose: Not Given Documented By: JENNIFER Non-Admin Reason: Patient Refused Linezolid (Zyvox/D5w) 600 mg in 300 mls @ 300 mls/hr IV Q12H [facility] Last Infusion: 06/06/24 11:18 Dose: Infused Documented By: RASHEEDA Trimethoprim/Sulfamethoxazole (184 mg/ Dextrose) 511.5 mls @ 225 mls/hr IV Q8H [facility] Last Infusion: 06/06/24 08:55 Dose: Infused Documented By: RASHEEDA Insulin Human Lispro (Insulin Lispro 100 Unit/Ml 3 Ml Vial) 0 unit SUBCUT QIDACHS [facility]; Protocol Last Admin: 06/06/24 08:55 Dose: Not Given Documented By: RASHEEDA Non-Admin Reason: No Insulin Coverage Isosorbide Mononitrate (Isosorbide Mononitrate 30 Mg Tab.Er.24h) 30 mg PO DAILY [facility]; Protocol Last Admin: 06/06/24 08:54 Dose: 30 mg Documented By: RASHEEDA Lidocaine HCl (Lidocaine Hcl 1 % Mpf 2 Ml Vial) 0.5 ml SUBCUT MOWEFR@1645 [facility] Last Admin: 06/05/24 08:24 Dose: Not Given Documented By: HENRIK Non-Admin Reason: dialysis med Loperamide HCl (Loperamide Hcl 2 Mg Capsule) 2 mg PO Q4H PRN PRN Reason: diarrhea Last Admin: 06/01/24 17:38 Dose: 2 mg Documented By: NICKY Magnesium Hydroxide (Milk Of Magnesia 30 Ml Oral.Susp) 30 ml PO DAILY PRN PRN Reason: Constipation Magnesium Oxide (Magnesium Oxide 400 Mg Tablet) 400 mg PO BID [facility] Last Admin: 06/06/24 08:54 Dose: 400 mg Documented By: RASHEEDA Melatonin (Melatonin 3 Mg Tablet) 6 mg PO BEDTIME PRN PRN Reason: Insomnia Last Admin: 05/31/24 22:39 Dose: 6 mg Documented By: CECELIA Multivitamins/Vitamin C (Multivitamin Tablet) 1 tab PO DAILY [facility] Last Admin: 06/06/24 08:54 Dose: 1 tab Documented By: RASHEEDA Non-Formulary Medication ( Tacrolimus 1 Mg Tablet Extended Release 24 Hr) 8 mg PO DAILY [facility] Last Admin: 06/06/24 09:15 Dose: 8 mg Documented By: RASHEEDA Omeprazole (Omeprazole 20 Mg Capsule.Dr) 20 mg PO DAILY@0630 [facility] Last Admin: 06/06/24 05:05 Dose: 20 mg Documented By: JENNIFER Ondansetron HCl (Ondansetron Hcl 4 Mg/2 Ml Vial) 4 mg IVPUSH Q8H PRN PRN Reason: Nausea and Vomiting Last Admin: 06/06/24 00:34 Dose: 4 mg Documented By: JENNIFER Comments: Nausea Polyethylene Glycol (Polyethylene Glycol 3350 17 Gm Powd.Pack) 17 gm PO DAILY PRN PRN Reason: Constipation Prednisone (Prednisone 2.5 Mg Tablet) 7.5 mg PO DAILY [facility] Sertraline HCl (Sertraline Hcl 25 Mg Tablet) 25 mg PO DAILY [facility] Last Admin: 06/06/24 08:54 Dose: 25 mg Documented By: RASHEEDA Sodium Bicarbonate (Sodium Bicarbonate 650 Mg Tablet) 1,300 mg PO BID [facility] Last Admin: 06/06/24 08:54 Dose: 1,300 mg Documented By: RASHEEDA Sodium Chloride (0.9 % Sodium Chloride Flush 3 Ml Syringe) 3 ml IVFLUSH QSHIFT [facility] Last Admin: 06/06/24 08:55 Dose: 3 ml Documented By: RASHEEDA Sucralfate (Sucralfate 1 Gm Tablet) 1 gm PO QIDACHS [facility] Last Admin: 06/06/24 08:54 Dose: 1 gm Documented By: RASHEEDA Labs 06/06/24 06:10 06/06/24 06:10 Labs: Laboratory Results - last 24 hr 06/05/24 06/05/24 06/06/24 15:55 20:33 06:10 Absolute Neuts (auto) 11.2 H Hold Purple Top SEE NOTE Anion Gap 14 Estim Creat Clear Calc 21.6 Estimated GFR 25 POC Glucose 145 H 207 H Random Glucose 89 Calcium 8.0 L 06/06/24 06/06/24 07:49 12:15 Absolute Neuts (auto) Hold Purple Top Anion Gap Estim Creat Clear Calc Estimated GFR POC Glucose 123 H 156 H Random Glucose Calcium Microbiology Microbiology Results: Microbiology 06/01/24 14:25 Gram Stain - Final Thigh Right Routine Culture - Preliminary Gram positive ambreen Assessment and Plan (1) Disseminated nocardiosis: Status: Acute (2) Skin nodule: Status: Acute (3) Lung mass: Status: Acute (4) Brain mass: Status: Acute Plan 64yo F with ESRD on HD MWF with failed transplant, HTN, HLD, HFrEF, DM2, GERD, esophagitis presented with weakness, missed HD on 05/26, found to be febrile due to PNA developed LUE/LLE weakness concerning for stroke MRI showed peripherally enhancing nodules within the right thalamus, left parietal lobe and at the right temporo-occipital junction maybe secondary to metastatic disease or an inflammatory/infectious CT chest showed spiculated soft tissue masses both lungs largest in the right middle lobe laterally and posterior right upper lobe, necrotic appearing pleural based lesions right hemithorax; findings consistent with advanced malignancy; suspected right basilar loculated pleural abscess measuring up to 9 cm, smooth interlobular septal thickening right greater than left lungs with small layering pleural effusion findings consistent with super imposed pulmonary edema fluid from thigh nodule with Gram-positive filamentous bacteria ultimately likely has disseminated nocardiosis rather than metastatic cancer Possible disseminated nocardiosis [skin, lung, brain] - Micro sent out sample for Nocardia cultures/speciation/susceptibilities; ID recommend renally-dosed IV TMP-SMX and linezolid by mouth started on 06/03, for 6 weeks and possibly longer - previously was on ceftriaxone + azithromycin 05/28-06/01, then vanco + piperacillin-tazobactam 06/01-06/03 - continue to taper dexamethasone [started for concern of cerebral edema fron brain mets] over next 1d then resume usual dose of prednisone 7.5 mg/d on 06/07 - Pulm following - TTE with no vegetations - BCx x2 negative/persistent leukocytosis likely related to steroids anemia of ESRD - improved after transfused 1u pRBCs 05/29; FOBT negative; gave epo 09067 units 05/29 and continue epo MWF with HD hypoK - potassium dropped to 2.6 will replete and follow labs hyperK - resolved after HD 05/28 ESRD on HD - continue HD MWF renal transplant - continue prednisone + tacrolimus chronic HFrEF - continue Imdur, carvedilol - volume management by dialysis GERD/esophagitis - PPI, sucralfate DM2 -elevated blood sugars likely due to steroids, adjust malaika-dose lispro mood disorder - sertraline severe malnutrition - continue supplements stage II pressure injury sacrum - seen by wound nurse; continue foam dressing and protection from friction and moisture and protect bony prominences, high-protein diet. dispo - PT recommended home with services; will also need home infusion of TMP-SMX q8h via port; linezolid PO VTE ppx - UFH In my clinical judgment, patient requires continued inpatient hospitalization for the following reasons: IV ABX and follow-up on final cultures Quality Stroke Does the patient have a stroke diagnosis?: No VTE Prior VTE?: No VTE Risk Level:: Medical - moderate - high VTE Device Contraindication: N/A - Device Ordered VTE Drug Contraindication: N/A - Med Ordered
[2024-06-06] MEDS: Linezolid 600 MG TABLET PO (14:35)
[2024-06-06] MEDS: Potassium Chloride ER 20 MEQ TAB.ER.PRT PO (14:38)
[2024-06-06] MEDS: diphenhydrAMINE HCL 25 MG CAPSULE PO (14:38)
[2024-06-06] MEDS: Heparin Sodium,Porcine 5,000 UNIT/ML VIAL 5000 UNIT SUBCUT (14:39)
[2024-06-06 16:00] LABS: Glucose, Whole Blood 143 mg/dL (60-115)
[2024-06-06] MEDS: Acetaminophen 325 MG TABLET 650 MG PO (16:10)
[2024-06-06 20:04] LABS: Glucose, Whole Blood 165 mg/dL (60-115)
[2024-06-06] MEDS: Melatonin 3 MG TABLET 6 MG PO (20:40)
[2024-06-06] MEDS: Insulin Lispro 100 UNIT/ML 3 ML VIAL SUBCUT (20:40)
[2024-06-06] MEDS: HYDROmorphone HCl 2 MG TABLET PO (22:50)
[2024-06-07] MEDS: Linezolid 600 MG TABLET PO ×2 (03:40→15:06)
[2024-06-07] MEDS: Heparin Sodium,Porcine 5,000 UNIT/ML VIAL 5000 UNIT SUBCUT ×2 (03:40→15:06)
[2024-06-07 04:00] VITALS: BP 154/69; PULSE 65; RESP 16; TEMP 36.4
[2024-06-07] MEDS: Omeprazole 20 MG CAPSULE.DR PO (06:01)
[2024-06-07] MEDS: SULFAMETHOXAZOLE IV ×3 (06:07→22:13)
[2024-06-07] MEDS: TRIMETHOPRIM IV ×3 (06:07→22:13)
[2024-06-07] MEDS: DEXTROSE 5% IV ×3 (06:07→22:13)
[2024-06-07 07:15] VITALS: BP 162/74; PULSE 63; RESP 16; TEMP 36.6; O2SAT 100
[2024-06-07 07:24] LABS: Glucose, Whole Blood 104 mg/dL (60-115)
[2024-06-07 08:56] LABS: Anion Gap 14 (12-20); Blood Urea Nitrogen 33 mg/dL (9-16); Carbon Dioxide 23 mmol/L (22-29); Chloride 94 mmol/L (96-108); Creatinine Clr Calc Pharmacy 17.7; Estimated Glomerular Filt Rate 19; Glucose Random 122 mg/dL (60-115); Potassium 4.2 mmol/L (3.3-5.1); Sodium 127 mmol/L (135-145)
[2024-06-07] MEDS: 0.9 % Sodium Chloride Flush 3 ML SYRINGE IVFLUSH ×3 (09:32→22:06)
[2024-06-07] MEDS: Sucralfate 1 GM TABLET PO ×4 (09:32→22:05)
[2024-06-07] MEDS: predniSONE 2.5 MG TABLET 7.5 MG PO (09:34)
[2024-06-07] MEDS: Isosorbide Mononitrate 30 MG TAB.ER.24H PO (09:34)
[2024-06-07] MEDS: Magnesium Oxide 400 MG TABLET PO ×2 (09:34→22:06)
[2024-06-07] MEDS: carvediloL 25 MG TABLET PO ×2 (09:34→22:05)
[2024-06-07] MEDS: Multivitamin TABLET 1 TAB PO (09:35)
[2024-06-07] MEDS: Sodium Bicarbonate 650 MG TABLET 1300 MG PO ×2 (09:35→22:05)
[2024-06-07] MEDS: Sertraline HCL 25 MG TABLET PO (09:38)
[2024-06-07] MEDS: TACROLIMUS 1 MG 8 EACH PO (10:26)
[2024-06-07 11:14] VITALS: BP 118/44; PULSE 69; RESP 14; TEMP 36.8; O2SAT 97
[2024-06-07 11:33] LABS: Glucose, Whole Blood 141 mg/dL (60-115)
--- NOTE | 2024-06-07 14:40 | MHC.CLN ---
F/U DIET RX:2000DM, 2 GRAM SODIUM, LOW POTASSIUM CHOPPED-APPROPRIATE ENSURE CLEAR TID SUPPLEMENT APPROPRIATE TO PROMOTE WOUND HEALING. SUPPLEMENT PROVIDES 720 KCALS, 24 G PROTEIN AND IS RENAL FRIENDLY. INTAKE AT MEALS VARIABLE, 25-100%, WITH MOST 50-100%. SKIN WITH STAGE II TO COCCYX. MONITOR PO INTAKE AND ENCOURAGE SUPPLEMENT.
--- NOTE | 2024-06-07 15:53 | HO.PM.IMPN ---
Subjective Subjective Date of Service: 06/07/24 Interval History: Offers no acute complaints, persistent left-sided weakness unchanged, tolerating diet, no fevers, no chills. Review of Systems All other system reviewed and are negative. Physical Exam Vital Signs: Vital Signs: Last Vital Signs Temp 98.3 F 06/07/24 11:14 Pulse 69 06/07/24 11:14 Resp 14 06/07/24 11:14 BP 118/44 L 06/07/24 11:14 Pulse Ox 97 06/07/24 11:14 O2 Del Method Room Air 06/07/24 11:14 O2 Flow Rate 98 06/07/24 04:00 BMI result Body Mass Index 17.5 Const: Other: Gen: in no acute distress, muscle wasting HEENT: sclera anicteric, moist mucus membranes Neck: supple Lungs: port R subclavian, diminished breath sounds Heart: regular rate and rhythm, no murmurs Abd: soft, non-tender, non-distended Ext: no edema Skin: warm/well-perfused, multiple skin nodules Neuro: alert and oriented x3, LUE and LLE with 4/5 strength Psych: appropriate affect Objective Data Active Medications Acetaminophen (Acetaminophen 325 Mg Tablet) 650 mg PO Q6H PRN PRN Reason: Pain, Mild 1-3,fever,headache Last Admin: 06/06/24 16:10 Dose: 650 mg Documented By: RASHEEDA Calcium Carbonate (Calcium Carbonate 750 Mg Tab.Chew) 750 mg PO Q4H PRN PRN Reason: Heartburn Carvedilol (Carvedilol 25 Mg Tablet) 25 mg PO BID [facility]; Protocol Last Admin: 06/07/24 09:34 Dose: 25 mg Documented By: ROMÁN Dextrose (Dextrose 50 % 25 Gm/50 Ml Syringe) 25 gm IVPUSH Q15M PRN; Protocol PRN Reason: per Hypoglycemia Standing Ord. Diphenhydramine HCl (Diphenhydramine Hcl 25 Mg Capsule) 25 mg PO BID PRN PRN Reason: itchiness Last Admin: 06/06/24 14:38 Dose: 25 mg Documented By: RASHEEDA Docusate Sodium (Docusate Sodium 100 Mg Capsule) 100 mg PO DAILY PRN PRN Reason: Constipation Epoetin Bassem-epbx (Epoetin Bassem-Epbx 20,000 Unit/Ml Vial) 20,000 unit SUBCUT MOWEFR [facility] Last Admin: 06/07/24 13:22 Dose: 20,000 unit Documented By: ROMÁN Glucose (Glucose Gel 15 Gm Gel..Gram.) 15 gm PO Q15M PRN; Protocol PRN Reason: per Hypoglycemia Standing Ord. Heparin Sodium (Porcine) (Heparin Sodium,Porcine 5,000 Unit/Ml Vial) 5,000 unit SUBCUT Q12H [facility] Last Admin: 06/07/24 15:06 Dose: 5,000 unit Documented By: ROMÁN Trimethoprim/Sulfamethoxazole (184 mg/ Dextrose) 511.5 mls @ 225 mls/hr IV Q8H [facility] Last Admin: 06/07/24 15:06 Dose: 225 mls/hr Documented By: ROMÁN Comments: 184 Insulin Human Lispro (Insulin Lispro 100 Unit/Ml 3 Ml Vial) 0 unit SUBCUT QIDACHS [facility]; Protocol Last Admin: 06/07/24 13:23 Dose: Not Given Documented By: ROMÁN Non-Admin Reason: No Insulin Coverage Isosorbide Mononitrate (Isosorbide Mononitrate 30 Mg Tab.Er.24h) 30 mg PO DAILY [facility]; Protocol Last Admin: 06/07/24 09:34 Dose: 30 mg Documented By: ROMÁN Lidocaine HCl (Lidocaine Hcl 1 % Mpf 2 Ml Vial) 0.5 ml SUBCUT MOWEFR@1645 [facility] Last Admin: 06/05/24 08:24 Dose: Not Given Documented By: HENRIK Non-Admin Reason: dialysis med Linezolid (Linezolid 600 Mg Tablet) 600 mg PO Q12H [facility] Last Admin: 06/07/24 15:06 Dose: 600 mg Documented By: ROMÁN Loperamide HCl (Loperamide Hcl 2 Mg Capsule) 2 mg PO Q4H PRN PRN Reason: diarrhea Last Admin: 06/01/24 17:38 Dose: 2 mg Documented By: NICKY Magnesium Hydroxide (Milk Of Magnesia 30 Ml Oral.Susp) 30 ml PO DAILY PRN PRN Reason: Constipation Magnesium Oxide (Magnesium Oxide 400 Mg Tablet) 400 mg PO BID [facility] Last Admin: 06/07/24 09:34 Dose: 400 mg Documented By: ROMÁN Melatonin (Melatonin 3 Mg Tablet) 6 mg PO BEDTIME PRN PRN Reason: Insomnia Last Admin: 06/06/24 20:40 Dose: 6 mg Documented By: JENNIFER Multivitamins/Vitamin C (Multivitamin Tablet) 1 tab PO DAILY [facility] Last Admin: 06/07/24 09:35 Dose: 1 tab Documented By: ROMÁN Non-Formulary Medication ( Tacrolimus 1 Mg Tablet Extended Release 24 Hr) 8 mg PO DAILY [facility] Last Admin: 06/07/24 10:26 Dose: 8 mg Documented By: ROMÁN Omeprazole (Omeprazole 20 Mg Capsule.Dr) 20 mg PO DAILY@0630 [facility] Last Admin: 06/07/24 06:01 Dose: 20 mg Documented By: JENNIFER Ondansetron HCl (Ondansetron Hcl 4 Mg/2 Ml Vial) 4 mg IVPUSH Q8H PRN PRN Reason: Nausea and Vomiting Last Admin: 06/06/24 00:34 Dose: 4 mg Documented By: JENNIFER Comments: Nausea Polyethylene Glycol (Polyethylene Glycol 3350 17 Gm Powd.Pack) 17 gm PO DAILY PRN PRN Reason: Constipation Prednisone (Prednisone 2.5 Mg Tablet) 7.5 mg PO DAILY [facility] Last Admin: 06/07/24 09:34 Dose: 7.5 mg Documented By: ROMÁN Sertraline HCl (Sertraline Hcl 25 Mg Tablet) 25 mg PO DAILY [facility] Last Admin: 06/07/24 09:38 Dose: 25 mg Documented By: ROMÁN Sodium Bicarbonate (Sodium Bicarbonate 650 Mg Tablet) 1,300 mg PO BID [facility] Last Admin: 06/07/24 09:35 Dose: 1,300 mg Documented By: ROMÁN Sodium Chloride (0.9 % Sodium Chloride Flush 3 Ml Syringe) 3 ml IVFLUSH QSHIFT [facility] Last Admin: 06/07/24 15:08 Dose: 3 ml Documented By: ROMÁN Sucralfate (Sucralfate 1 Gm Tablet) 1 gm PO QIDACHS [facility] Last Admin: 06/07/24 13:22 Dose: 1 gm Documented By: ROMÁN Labs 06/06/24 06:10 06/07/24 07:54 Labs: Laboratory Results - last 24 hr 06/06/24 06/06/24 06/07/24 15:55 20:00 07:20 Hold Purple Top Anion Gap Estim Creat Clear Calc Estimated GFR POC Glucose 143 H 165 H 104 Random Glucose Calcium 06/07/24 06/07/24 07:54 11:16 Hold Purple Top SEE NOTE Anion Gap 14 Estim Creat Clear Calc 17.7 Estimated GFR 19 POC Glucose 141 H Random Glucose 122 H Calcium 8.0 L Assessment and Plan (1) Disseminated nocardiosis: Status: Acute (2) Skin nodule: Status: Acute (3) Lung mass: Status: Acute (4) Brain mass: Status: Acute Plan 64yo F with ESRD on HD MWF with failed transplant, HTN, HLD, HFrEF, DM2, GERD, esophagitis presented with weakness, missed HD on 05/26, found to be febrile due to PNA developed LUE/LLE weakness concerning for stroke MRI showed peripherally enhancing nodules within the right thalamus, left parietal lobe and at the right temporo-occipital junction maybe secondary to metastatic disease or an inflammatory/infectious CT chest showed spiculated soft tissue masses both lungs largest in the right middle lobe laterally and posterior right upper lobe, necrotic appearing pleural based lesions right hemithorax; findings consistent with advanced malignancy; suspected right basilar loculated pleural abscess measuring up to 9 cm, smooth interlobular septal thickening right greater than left lungs with small layering pleural effusion findings consistent with super imposed pulmonary edema fluid from thigh nodule with Gram-positive filamentous bacteria ultimately likely has disseminated nocardiosis rather than metastatic cancer Possible disseminated nocardiosis [skin, lung, brain] - Micro sent out sample for Nocardia cultures/speciation/susceptibilities; ID recommend renally-dosed IV TMP-SMX and linezolid by mouth started on 06/03, for 6 weeks and possibly longer - previously was on ceftriaxone + azithromycin 05/28-06/01, then vanco + piperacillin-tazobactam 06/01-06/03 - s/p dexamethasone [started for concern of cerebral edema fron brain mets] placed back on prednisone 7.5 mg/d - Pulm following - TTE with no vegetations - BCx x2 negative/persistent leukocytosis likely related to steroids anemia of ESRD - improved after transfused 1u pRBCs 05/29; FOBT negative; gave epo 24663 units 05/29 and continue epo MWF with HD hypoK - repleted hyperK - resolved after HD 05/28 ESRD on HD - continue HD MWF renal transplant - continue prednisone + tacrolimus chronic HFrEF - continue Imdur, carvedilol, volume management by dialysis GERD/esophagitis - PPI, sucralfate DM2 -blood sugars improved, malaika-dose lispro mood disorder - sertraline severe malnutrition - continue supplements stage II pressure injury sacrum - seen by wound nurse; continue foam dressing and protection from friction and moisture and protect bony prominences, high-protein diet. dispo - PT recommended home with services; will also need home infusion of TMP-SMX q8h via port; linezolid PO,CM arranging for home services VTE ppx - [facility] In my clinical judgment, patient requires continued inpatient hospitalization for the following reasons: IV ABX and follow-up on final cultures Quality Stroke Does the patient have a stroke diagnosis?: No VTE Prior VTE?: No VTE Risk Level:: Medical - moderate - high VTE Device Contraindication: N/A - Device Ordered VTE Drug Contraindication: N/A - Med Ordered
[2024-06-07 16:00] VITALS: BP 163/74; PULSE 72; RESP 16; TEMP 37.1; O2SAT 95
[2024-06-07 16:34] LABS: Glucose, Whole Blood 150 mg/dL (60-115)
--- NOTE | 2024-06-07 19:41 | PC.NURSE ---
wound care to right elbow and right upper thigh, right elbow old packing with small amount of nonodorous purulent drainage, cleansed w/ns, skin prep to periwound durafiber ag applied and covered with foam dressing right groin area - wound with pink healthy wound bed, cleansed w/ns, skin prep to periwound, durafiber ag applied and covereed w/foam dressing right upper thigh wound - packing removed with purulent drainage, cleansed w/ns, skin prep to periwound, center of wound appears dark/barrientos/black, durafiber ag applied and covered wth foam dressing coccyx, dressage cdi
[2024-06-07 21:53] VITALS: BP 141/61; PULSE 71; RESP 17; TEMP 36.6; O2SAT 98
[2024-06-07 22:05] LABS: Glucose, Whole Blood 127 mg/dL (60-115)
[2024-06-07] MEDS: Loperamide HCl 2 MG CAPSULE PO (22:05)
[2024-06-08] VITALS (9 sets, daily range): BP systolic 129–158; BP diastolic 55–74; PULSE 69–100; RESP 16–18; TEMP 36.6–37.2; O2SAT 97–100
[2024-06-08] MEDS: Heparin Sodium,Porcine 5,000 UNIT/ML VIAL 5000 UNIT SUBCUT ×2 (00:41→14:58)
[2024-06-08] MEDS: Linezolid 600 MG TABLET PO ×2 (00:41→14:56)
[2024-06-08] MEDS: SULFAMETHOXAZOLE IV ×2 (06:03→14:36)
[2024-06-08] MEDS: DEXTROSE 5% IV ×2 (06:03→14:36)
[2024-06-08] MEDS: TRIMETHOPRIM IV ×2 (06:03→14:36)
[2024-06-08 07:11] LABS: Glucose, Whole Blood 122 mg/dL (60-115)
[2024-06-08] MEDS: Magnesium Oxide 400 MG TABLET PO ×2 (08:37→20:37)
[2024-06-08] MEDS: predniSONE 2.5 MG TABLET 7.5 MG PO (08:37)
[2024-06-08] MEDS: Sertraline HCL 25 MG TABLET PO (08:37)
[2024-06-08] MEDS: carvediloL 25 MG TABLET PO ×2 (08:38→20:38)
[2024-06-08] MEDS: Sucralfate 1 GM TABLET PO ×4 (08:38→20:37)
[2024-06-08] MEDS: Isosorbide Mononitrate 30 MG TAB.ER.24H PO (08:38)
[2024-06-08] MEDS: Sodium Bicarbonate 650 MG TABLET 1300 MG PO ×2 (08:38→20:37)
[2024-06-08] MEDS: Multivitamin TABLET 1 TAB PO (08:38)
--- NOTE | 2024-06-08 09:49 | P.PNNP_ITS ---
Subjective Subjective Date of Service: 06/08/24 Interval history: Offers no acute complaints, persistent left-sided weakness unchanged, tolerating diet, HD, no fevers, no chills. Physical Exam 2 Vital Signs: Vital Signs: Last Vital Signs Temp 97.9 F 06/08/24 07:41 Pulse 100 06/08/24 08:38 Resp 16 06/08/24 07:41 BP 158/62 H 06/08/24 08:38 Pulse Ox 100 06/08/24 07:41 O2 Del Method Room Air 06/08/24 07:41 O2 Flow Rate 98 06/07/24 04:00 BMI result Body Mass Index 17.5 Const: General: no acute distress Orientation/consciousness: patient oriented x3 Eyes: EOM: EOMs intact bilaterally Resp: Auscultation: diminished lung sounds Cardio: Rate: regular rate GI: Palpation (GI): Soft to palpation Neuro: General: patient oriented x3 Objective Data Labs 06/06/24 06:10 06/07/24 07:54 Labs: Laboratory Results - last 24 hr 06/07/24 06/07/24 06/07/24 11:16 16:23 22:00 POC Glucose 141 H 150 H 127 H 06/08/24 07:01 POC Glucose 122 H Microbiology Microbiology Results: Microbiology 06/01/24 14:25 Thigh Right Gram Stain - Final 06/01/24 14:25 Thigh Right Routine Culture - Preliminary Gram positive ambreen 05/27/24 21:48 Blood - Venous Blood Culture - Final No growth after 5 days. 05/27/24 21:44 Blood - Venous Blood Culture - Final No growth after 5 days. Procedures Date of Service Date of Service: 06/08/24 Assessment & Plan Assessment and plan (1) ESRD (end stage renal disease) on dialysis: Status: Acute (2) Disseminated nocardiosis: Status: Acute Plan Usually gets HD on MWF Shall dialyze tomorrow Has a functioning AVF Low Na/K diet with fluid restriction Procrit 41038 MWF to keep Hb ~ 10 Getting treatment for Nocardiosis Continue rest of current management for now Progress Note: Quality Stroke Does the patient have a stroke diagnosis?: No
[2024-06-08] MEDS: 0.9 % Sodium Chloride Flush 3 ML SYRINGE IVFLUSH ×3 (09:53→20:37)
[2024-06-08] MEDS: TACROLIMUS 1 MG 8 EACH PO (09:56)
[2024-06-08 11:09] LABS: Glucose, Whole Blood 178 mg/dL (60-115)
[2024-06-08] MEDS: Insulin Lispro 100 UNIT/ML 3 ML VIAL SUBCUT ×3 (12:51→20:52)
--- NOTE | 2024-06-08 14:49 | HO.PM.IMPN ---
Subjective Subjective Date of Service: 06/08/24 Interval History: Offers no acute complaints Persistent left upper and lower extremity weakness Denies fever, no chills tolerating diet 25%, taking supplements, no nausea, no vomiting or abdominal pain Remains significantly weak Review of Systems All other system reviewed and are negative Physical Exam Vital Signs: Vital Signs: Last Vital Signs Temp 98.4 F 06/08/24 11:11 Pulse 72 06/08/24 11:11 Resp 16 06/08/24 11:11 BP 129/62 06/08/24 11:11 Pulse Ox 97 06/08/24 11:11 O2 Del Method Room Air 06/08/24 11:11 O2 Flow Rate 98 06/07/24 04:00 BMI result Body Mass Index 17.5 Const: Other: Gen: in no acute distress, muscle wasting HEENT: sclera anicteric, moist mucus membranes Neck: supple Lungs: port R subclavian, diminished breath sounds Heart: regular rate and rhythm, no murmurs Abd: soft, non-tender, non-distended Ext: no edema Skin: warm/well-perfused, multiple skin nodules Neuro: alert and oriented x3, LUE and LLE with 4/5 strength Psych: appropriate affect Objective Data Active Medications Acetaminophen (Acetaminophen 325 Mg Tablet) 650 mg PO Q6H PRN PRN Reason: Pain, Mild 1-3,fever,headache Last Admin: 06/06/24 16:10 Dose: 650 mg Documented By: RASHEEDA Calcium Carbonate (Calcium Carbonate 750 Mg Tab.Chew) 750 mg PO Q4H PRN PRN Reason: Heartburn Carvedilol (Carvedilol 25 Mg Tablet) 25 mg PO BID [facility]; Protocol Last Admin: 06/08/24 08:38 Dose: 25 mg Documented By: MARYURI Dextrose (Dextrose 50 % 25 Gm/50 Ml Syringe) 25 gm IVPUSH Q15M PRN; Protocol PRN Reason: per Hypoglycemia Standing Ord. Diphenhydramine HCl (Diphenhydramine Hcl 25 Mg Capsule) 25 mg PO BID PRN PRN Reason: itchiness Last Admin: 06/06/24 14:38 Dose: 25 mg Documented By: RASHEEDA Docusate Sodium (Docusate Sodium 100 Mg Capsule) 100 mg PO DAILY PRN PRN Reason: Constipation Epoetin Bassem-epbx (Epoetin Bassem-Epbx 20,000 Unit/Ml Vial) 20,000 unit SUBCUT MOWEFR [facility] Last Admin: 06/07/24 13:22 Dose: 20,000 unit Documented By: ROMÁN Glucose (Glucose Gel 15 Gm Gel..Gram.) 15 gm PO Q15M PRN; Protocol PRN Reason: per Hypoglycemia Standing Ord. Heparin Sodium (Porcine) (Heparin Sodium,Porcine 5,000 Unit/Ml Vial) 5,000 unit SUBCUT Q12H [facility] Last Admin: 06/08/24 00:41 Dose: 5,000 unit Documented By: JOHNNA Trimethoprim/Sulfamethoxazole (184 mg/ Dextrose) 511.5 mls @ 225 mls/hr IV Q8H [facility] Last Infusion: 06/08/24 08:20 Dose: Infused Documented By: MARYURI Insulin Human Lispro (Insulin Lispro 100 Unit/Ml 3 Ml Vial) 0 unit SUBCUT QIDACHS [facility]; Protocol Last Admin: 06/08/24 12:51 Dose: 4 unit Documented By: MARYURI Isosorbide Mononitrate (Isosorbide Mononitrate 30 Mg Tab.Er.24h) 30 mg PO DAILY [facility]; Protocol Last Admin: 06/08/24 08:38 Dose: 30 mg Documented By: MARYURI Lidocaine HCl (Lidocaine Hcl 1 % Mpf 2 Ml Vial) 0.5 ml SUBCUT MOWEFR@1645 [facility] Last Admin: 06/07/24 22:06 Dose: Not Given Documented By: JOHNNA Non-Admin Reason: Off unit: Dialysis Linezolid (Linezolid 600 Mg Tablet) 600 mg PO Q12H [facility] Last Admin: 06/08/24 00:41 Dose: 600 mg Documented By: JOHNNA Loperamide HCl (Loperamide Hcl 2 Mg Capsule) 2 mg PO Q4H PRN PRN Reason: diarrhea Last Admin: 06/07/24 22:05 Dose: 2 mg Documented By: JOHNNA Magnesium Hydroxide (Milk Of Magnesia 30 Ml Oral.Susp) 30 ml PO DAILY PRN PRN Reason: Constipation Magnesium Oxide (Magnesium Oxide 400 Mg Tablet) 400 mg PO BID [facility] Last Admin: 06/08/24 08:37 Dose: 400 mg Documented By: MARYURI Melatonin (Melatonin 3 Mg Tablet) 6 mg PO BEDTIME PRN PRN Reason: Insomnia Last Admin: 06/06/24 20:40 Dose: 6 mg Documented By: JENNIFER Multivitamins/Vitamin C (Multivitamin Tablet) 1 tab PO DAILY [facility] Last Admin: 06/08/24 08:38 Dose: 1 tab Documented By: MARYURI Non-Formulary Medication ( Tacrolimus 1 Mg Tablet Extended Release 24 Hr) 8 mg PO DAILY [facility] Last Admin: 06/08/24 09:56 Dose: 8 mg Documented By: MARYURI Omeprazole (Omeprazole 20 Mg Capsule.Dr) 20 mg PO DAILY@0630 [facility] Last Admin: 06/08/24 06:05 Dose: Not Given Documented By: ANTOIC Non-Admin Reason: Patient Refused Ondansetron HCl (Ondansetron Hcl 4 Mg/2 Ml Vial) 4 mg IVPUSH Q8H PRN PRN Reason: Nausea and Vomiting Last Admin: 06/06/24 00:34 Dose: 4 mg Documented By: JENNIFER Comments: Nausea Polyethylene Glycol (Polyethylene Glycol 3350 17 Gm Powd.Pack) 17 gm PO DAILY PRN PRN Reason: Constipation Prednisone (Prednisone 2.5 Mg Tablet) 7.5 mg PO DAILY [facility] Last Admin: 06/08/24 08:37 Dose: 7.5 mg Documented By: MARYURI Sertraline HCl (Sertraline Hcl 25 Mg Tablet) 25 mg PO DAILY [facility] Last Admin: 06/08/24 08:37 Dose: 25 mg Documented By: MARYURI Sodium Bicarbonate (Sodium Bicarbonate 650 Mg Tablet) 1,300 mg PO BID [facility] Last Admin: 06/08/24 08:38 Dose: 1,300 mg Documented By: MARYURI Sodium Chloride (0.9 % Sodium Chloride Flush 3 Ml Syringe) 3 ml IVFLUSH QSHIFT [facility] Last Admin: 06/08/24 09:53 Dose: 3 ml Documented By: MARYURI Sucralfate (Sucralfate 1 Gm Tablet) 1 gm PO QIDACHS [facility] Last Admin: 06/08/24 12:51 Dose: 1 gm Documented By: MARYURI Labs 06/06/24 06:10 06/07/24 07:54 Labs: Laboratory Results - last 24 hr 06/07/24 06/07/24 06/08/24 16:23 22:00 07:01 POC Glucose 150 H 127 H 122 H 06/08/24 11:03 POC Glucose 178 H Microbiology Microbiology Results: Microbiology 06/01/24 14:25 Fungal Identification - Preliminary Thigh Right No growth to date. Assessment and Plan (1) Disseminated nocardiosis: Status: Acute (2) Skin nodule: Status: Acute (3) Lung mass: Status: Acute (4) Brain mass: Status: Acute (5) Mass of lung parenchyma: Status: Acute Plan 64yo F with ESRD on HD MWF with failed transplant, HTN, HLD, HFrEF, DM2, GERD, esophagitis presented with weakness, missed HD on 05/26, found to be febrile due to PNA developed LUE/LLE weakness concerning for stroke MRI showed peripherally enhancing nodules within the right thalamus, left parietal lobe and at the right temporo-occipital junction maybe secondary to metastatic disease or an inflammatory/infectious CT chest showed spiculated soft tissue masses both lungs largest in the right middle lobe laterally and posterior right upper lobe, necrotic appearing pleural based lesions right hemithorax; findings consistent with advanced malignancy; suspected right basilar loculated pleural abscess measuring up to 9 cm, smooth interlobular septal thickening right greater than left lungs with small layering pleural effusion findings consistent with super imposed pulmonary edema fluid from thigh nodule with Gram-positive filamentous bacteria ultimately likely has disseminated nocardiosis rather than metastatic cancer Possible disseminated nocardiosis [skin, lung, brain] - Micro sent out sample for Nocardia cultures/speciation/susceptibilities; Spoke with ID she recommend to continue renally-dosed IV TMP-SMX and linezolid by mouth started on 06/03, for 6 weeks and possibly longer invade for final report that will be available in 1 week - previously was on ceftriaxone + azithromycin 05/28-06/01, then vanco + piperacillin-tazobactam 06/01-06/03 - s/p dexamethasone [started for concern of cerebral edema fron brain mets] placed back on prednisone 7.5 mg/d - Pulm following - TTE with no vegetations - BCx x2 negative/persistent leukocytosis likely related to steroids anemia of ESRD - improved after transfused 1u pRBCs 05/29; FOBT negative; gave epo 77112 units 05/29 and continue epo MWF with HD hypoK - repleted hyperK - resolved after HD 05/28 ESRD on HD - continue HD MWF renal transplant - continue prednisone + tacrolimus chronic HFrEF - continue Imdur, carvedilol, volume management by dialysis GERD/esophagitis - PPI, sucralfate DM2 -blood sugars improved, malaika-dose lispro mood disorder - sertraline severe malnutrition - continue supplements stage II pressure injury sacrum - seen by wound nurse; continue foam dressing and protection from friction and moisture and protect bony prominences, high-protein diet. dispo - PT recommended home with services; will also need home infusion of TMP-SMX q8h via port; linezolid PO, PT recommend transfer patient in ambulance at discharge VTE ppx - [facility] In my clinical judgment, patient requires continued inpatient hospitalization for the following reasons: IV ABX and follow-up on final cultures Quality Stroke Does the patient have a stroke diagnosis?: No VTE Prior VTE?: No VTE Risk Level:: Medical - moderate - high VTE Device Contraindication: N/A - Device Ordered VTE Drug Contraindication: N/A - Med Ordered
--- NOTE | 2024-06-08 15:29 | MHC.CM.PN ---
CM met with pt. and her several times today to discuss DCP. Pt. would like to go home, [facility] services said that her ins. does not cover services. called ( [facility]) and was told that they do cover and that [facility] is in network. Ref out to [facility] if [facility] cannot be done, [facility] to run referral thru ins. again to determine coverage. DCP: either STR or home with services.
[2024-06-08 16:15] LABS: Glucose, Whole Blood 209 mg/dL (60-115)
[2024-06-08] MEDS: LORazepam 1 MG TABLET PO (20:37)
[2024-06-08 20:53] LABS: Glucose, Whole Blood 167 mg/dL (60-115)
[2024-06-09] MEDS: TRIMETHOPRIM IV ×4 (00:25→22:48)
[2024-06-09] MEDS: DEXTROSE 5% IV ×4 (00:25→22:48)
[2024-06-09] MEDS: SULFAMETHOXAZOLE IV ×4 (00:25→22:48)
--- NOTE | 2024-06-09 00:28 | P.PNID_ITS ---
Subjective Subjective Date of Service: 06/08/24 Critical Care Time (minutes): 15 Comment: She has possible nocaridia. She has biopsy pending leg,microbiology smear [employer] Objective Data Labs 06/06/24 06:10 06/07/24 07:54 Labs: Laboratory Results - last 24 hr 06/08/24 06/08/24 06/08/24 07:01 11:03 16:11 POC Glucose 122 H 178 H 209 H 06/08/24 20:37 POC Glucose 167 H Microbiology Microbiology Results: Microbiology 06/01/24 14:25 Thigh Right Fungal Identification - Preliminary No growth to date. 06/01/24 14:25 Thigh Right Gram Stain - Final 06/01/24 14:25 Thigh Right Routine Culture - Preliminary Gram positive ambreen 05/27/24 21:48 Blood - Venous Blood Culture - Final No growth after 5 days. 05/27/24 21:44 Blood - Venous Blood Culture - Final No growth after 5 days. Physical Exam 2 Vital Signs: Vital Signs: Last Vital Signs Temp 97.9 F 06/08/24 23:50 Pulse 70 06/08/24 23:50 Resp 16 06/08/24 23:50 BP 151/72 H 06/08/24 23:50 Pulse Ox 100 06/08/24 23:50 O2 Del Method Room Air 06/08/24 23:50 O2 Flow Rate 98 06/07/24 04:00 BMI result Body Mass Index 17.5 Const: General: cooperative HEENT: Head: Yes normal to inspection Face and sinus: Yes normal facial exam Mouth: Normal oral and palatal mucosa present Teeth and gingiva: d entition normal Eyes: General: appearance normal, both eyes and all related structures P upils: Equal, round and reactive pupils present Resp: Effort & Inspection: normal respiratory effort Cardio: Rate: regular rate Rhythm: regular rhythm GI: Palpation (GI): Soft to palpation and nontender : General: Yes no CVA tenderness Back/Spine/Pelvis: Back: no CVA tenderness Skin: General skin exam: no rashes or lesions noted Neuro: General: moves all extremities Cranial nerves: Yes Equal, round and reactive pupils present Extrem: General: Yes normal to inspection Psych: Appearance: grossly normal Assessment and Plan Assessment and plan (1) Lung mass: Status: Acute (2) Skin nodule: Status: Acute (3) Brain mass: Status: Acute Plan She has possible nocardiosis Continue IV Bactrim and po linezolid pending above results (back by end of week) Time Spent With Patient Time: Total time managing care of this patient today ____ minutes.
[2024-06-09] MEDS: Linezolid 600 MG TABLET PO ×2 (02:52→13:17)
[2024-06-09] MEDS: Heparin Sodium,Porcine 5,000 UNIT/ML VIAL 5000 UNIT SUBCUT ×2 (02:52→13:17)
[2024-06-09 03:24] VITALS: BP 137/61; PULSE 70; RESP 16; TEMP 36.8; O2SAT 98
[2024-06-09] MEDS: Omeprazole 20 MG CAPSULE.DR PO (05:51)
[2024-06-09 07:08] VITALS: BP 149/59; PULSE 72; RESP 18; TEMP 36.9; O2SAT 100
[2024-06-09 07:18] LABS: Glucose, Whole Blood 86 mg/dL (60-115)
--- NOTE | 2024-06-09 09:05 | MHC.CM.PN ---
[facility] REVIEWED, PER ID PLAN FOR PT TO REMAIN INPT ON IV BACTRIM AND PO LINZOLID THROUGH END OF WEEK PENDING THIGH CULTURES, CM STILL AWAITING TO HEAR IF PT HAS COVERAGE FOR IV ABX AT HOME, [facility] FOLLOWING UNSURE IF THEY WILL HAVE A BED, CM WILL CONT TO FOLLOW DC NEEDS.
[2024-06-09] MEDS: Isosorbide Mononitrate 30 MG TAB.ER.24H PO (10:22)
[2024-06-09] MEDS: Multivitamin TABLET 1 TAB PO (10:23)
[2024-06-09] MEDS: predniSONE 2.5 MG TABLET 7.5 MG PO (10:23)
[2024-06-09] MEDS: Magnesium Oxide 400 MG TABLET PO ×2 (10:23→20:22)
[2024-06-09] MEDS: Sodium Bicarbonate 650 MG TABLET 1300 MG PO ×2 (10:23→20:22)
[2024-06-09] MEDS: carvediloL 25 MG TABLET PO ×2 (10:24→20:22)
[2024-06-09] MEDS: Sertraline HCL 25 MG TABLET PO (10:24)
[2024-06-09] MEDS: Fluconazole 150 MG TABLET PO (10:24)
[2024-06-09] MEDS: TACROLIMUS 1 MG 8 EACH PO (10:25)
[2024-06-09] MEDS: Sucralfate 1 GM TABLET PO ×3 (10:33→20:22)
[2024-06-09] MEDS: 0.9 % Sodium Chloride Flush 3 ML SYRINGE IVFLUSH ×3 (10:35→22:49)
[2024-06-09 11:37] VITALS: BP 142/66; PULSE 72; RESP 18; TEMP 36.6; O2SAT 96
--- NOTE | 2024-06-09 12:49 | P.PNNP_ITS ---
Subjective Subjective Date of Service: 06/09/24 Interval history: All recent data reviewed. Due HD today Physical Exam 2 Vital Signs: Vital Signs: Last Vital Signs Temp 98 F 06/09/24 11:37 Pulse 72 06/09/24 11:37 Resp 18 06/09/24 11:37 BP 142/66 H 06/09/24 11:37 Pulse Ox 96 06/09/24 11:37 O2 Del Method Room Air 06/09/24 11:37 O2 Flow Rate 98 06/07/24 04:00 BMI result Body Mass Index 17.5 Const: General: no acute distress Eyes: EOM: EOMs intact bilaterally Resp: Auscultation: diminished lung sounds Cardio: Rate: regular rate GI: Palpation (GI): Soft to palpation Neuro: General: moves all extremities Objective Data Labs 06/06/24 06:10 06/07/24 07:54 Labs: Laboratory Results - last 24 hr 06/08/24 06/08/24 06/09/24 16:11 20:37 07:07 POC Glucose 209 H 167 H 86 Microbiology Microbiology Results: Microbiology 06/01/24 14:25 Thigh Right Fungal Identification - Preliminary No growth to date. 06/01/24 14:25 Thigh Right Gram Stain - Final 06/01/24 14:25 Thigh Right Routine Culture - Preliminary Gram positive ambreen 05/27/24 21:48 Blood - Venous Blood Culture - Final No growth after 5 days. 05/27/24 21:44 Blood - Venous Blood Culture - Final No growth after 5 days. Procedures Date of Service Date of Service: 06/09/24 Assessment & Plan Assessment and plan (1) ESRD (end stage renal disease) on dialysis: Status: Acute Plan Usually gets HD on MWF Shall dialyze today Has a functioning AVF Low Na/K diet with fluid restriction Procrit 61277 MWF to keep Hb ~ 10 Getting treatment for Nocardiosis Continue rest of current management for now Progress Note: Quality Stroke Does the patient have a stroke diagnosis?: No
[2024-06-09 13:58] VITALS: BP 142/66; PULSE 72; O2SAT 96
--- NOTE | 2024-06-09 14:06 | MHC.CLN ---
F/U DIET RX:2000DM, 2 GRAM SODIUM, LOW POTASSIUM CHOPPED-APPROPRIATE ENSURE CLEAR TID SUPPLEMENT APPROPRIATE TO PROMOTE WOUND HEALING. SUPPLEMENT PROVIDES 720 KCALS, 24 G PROTEIN AND IS RENAL FRIENDLY. INTAKE AT MEALS VARIABLE, 25-100%. SKIN WITH STAGE II TO COCCYX. MONITOR PO INTAKE AND ENCOURAGE SUPPLEMENT.
[2024-06-09 15:15] VITALS: BP 145/65; PULSE 70; RESP 18; TEMP 36.2; O2SAT 98
--- NOTE | 2024-06-09 15:27 | P.PNIM_ITS ---
Subjective Subjective Date of Service: 06/09/24 Interval History: Tolerating diet no nausea no vomiting or abdominal pain Denies pain, no fevers, no chills, no headache or dizziness Denies new neurological symptoms Review of Systems All other system reviewed and are negative. Physical Exam 2 Vital Signs: Vital Signs: Last Vital Signs Temp 97.1 F 06/09/24 15:15 Pulse 70 06/09/24 15:15 Resp 18 06/09/24 15:15 BP 145/65 H 06/09/24 15:15 Pulse Ox 98 06/09/24 15:15 O2 Del Method Room Air 06/09/24 15:15 O2 Flow Rate 98 06/07/24 04:00 BMI result Body Mass Index 17.5 Const: Other: Gen: in no acute distress, muscle wasting HEENT: sclera anicteric, moist mucus membranes Neck: supple Lungs: port R subclavian, diminished breath sounds Heart: regular rate and rhythm, no murmurs Abd: soft, non-tender, non-distended Ext: no edema Skin: warm/well-perfused, multiple skin nodules Neuro: alert and oriented x3, LUE and LLE with 4/5 strength Psych: appropriate affect Objective Data Active Medications Acetaminophen (Acetaminophen 325 Mg Tablet) 650 mg PO Q6H PRN PRN Reason: Pain, Mild 1-3,fever,headache Last Admin: 06/06/24 16:10 Dose: 650 mg Documented By: RASHEEDA Calcium Carbonate (Calcium Carbonate 750 Mg Tab.Chew) 750 mg PO Q4H PRN PRN Reason: Heartburn Carvedilol (Carvedilol 25 Mg Tablet) 25 mg PO BID [facility]; Protocol Last Admin: 06/09/24 10:24 Dose: 25 mg Documented By: MAXI Dextrose (Dextrose 50 % 25 Gm/50 Ml Syringe) 25 gm IVPUSH Q15M PRN; Protocol PRN Reason: per Hypoglycemia Standing Ord. Diphenhydramine HCl (Diphenhydramine Hcl 25 Mg Capsule) 25 mg PO BID PRN PRN Reason: itchiness Last Admin: 06/06/24 14:38 Dose: 25 mg Documented By: RASHEEDA Docusate Sodium (Docusate Sodium 100 Mg Capsule) 100 mg PO DAILY PRN PRN Reason: Constipation Epoetin Bassem-epbx (Epoetin Bassem-Epbx 20,000 Unit/Ml Vial) 20,000 unit SUBCUT MOWEFR [facility] Last Admin: 06/09/24 14:54 Dose: 20,000 unit Documented By: MAXI Glucose (Glucose Gel 15 Gm Gel..Gram.) 15 gm PO Q15M PRN; Protocol PRN Reason: per Hypoglycemia Standing Ord. Heparin Sodium (Porcine) (Heparin Sodium,Porcine 5,000 Unit/Ml Vial) 5,000 unit SUBCUT Q12H [facility] Last Admin: 06/09/24 13:17 Dose: 5,000 unit Documented By: MAXI Trimethoprim/Sulfamethoxazole (184 mg/ Dextrose) 511.5 mls @ 225 mls/hr IV Q8H [facility] Last Admin: 06/09/24 14:53 Dose: 225 mls/hr Documented By: MAXI Insulin Human Lispro (Insulin Lispro 100 Unit/Ml 3 Ml Vial) 0 unit SUBCUT QIDACHS [facility]; Protocol Last Admin: 06/09/24 11:56 Dose: Not Given Documented By: MAXI Non-Admin Reason: No Insulin Coverage Isosorbide Mononitrate (Isosorbide Mononitrate 30 Mg Tab.Er.24h) 30 mg PO DAILY [facility]; Protocol Last Admin: 06/09/24 10:22 Dose: 30 mg Documented By: MAXI Lidocaine HCl (Lidocaine Hcl 1 % Mpf 2 Ml Vial) 0.5 ml SUBCUT MOWEFR@1645 [facility] Last Admin: 06/07/24 22:06 Dose: Not Given Documented By: JOHNNA Non-Admin Reason: Off unit: Dialysis Linezolid (Linezolid 600 Mg Tablet) 600 mg PO Q12H [facility] Last Admin: 06/09/24 13:17 Dose: 600 mg Documented By: MAXI Loperamide HCl (Loperamide Hcl 2 Mg Capsule) 2 mg PO Q4H PRN PRN Reason: diarrhea Last Admin: 06/07/24 22:05 Dose: 2 mg Documented By: JOHNNA Magnesium Hydroxide (Milk Of Magnesia 30 Ml Oral.Susp) 30 ml PO DAILY PRN PRN Reason: Constipation Magnesium Oxide (Magnesium Oxide 400 Mg Tablet) 400 mg PO BID [facility] Last Admin: 06/09/24 10:23 Dose: 400 mg Documented By: MAXI Melatonin (Melatonin 3 Mg Tablet) 6 mg PO BEDTIME PRN PRN Reason: Insomnia Last Admin: 06/06/24 20:40 Dose: 6 mg Documented By: JENNIFER Multivitamins/Vitamin C (Multivitamin Tablet) 1 tab PO DAILY [facility] Last Admin: 06/09/24 10:23 Dose: 1 tab Documented By: MAXI Non-Formulary Medication ( Tacrolimus 1 Mg Tablet Extended Release 24 Hr) 8 mg PO DAILY [facility] Last Admin: 06/09/24 10:25 Dose: 8 mg Documented By: MAXI Omeprazole (Omeprazole 20 Mg Capsule.) 20 mg PO DAILY@0630 [facility] Last Admin: 06/09/24 05:51 Dose: 20 mg Documented By: JOANNA Ondansetron HCl (Ondansetron Hcl 4 Mg/2 Ml Vial) 4 mg IVPUSH Q8H PRN PRN Reason: Nausea and Vomiting Last Admin: 06/06/24 00:34 Dose: 4 mg Documented By: JENNIFER Comments: Nausea Polyethylene Glycol (Polyethylene Glycol 3350 17 Gm Powd.Pack) 17 gm PO DAILY PRN PRN Reason: Constipation Prednisone (Prednisone 2.5 Mg Tablet) 7.5 mg PO DAILY [facility] Last Admin: 06/09/24 10:23 Dose: 7.5 mg Documented By: MAXI Sertraline HCl (Sertraline Hcl 25 Mg Tablet) 25 mg PO DAILY [facility] Last Admin: 06/09/24 10:24 Dose: 25 mg Documented By: MAXI Sodium Bicarbonate (Sodium Bicarbonate 650 Mg Tablet) 1,300 mg PO BID [facility] Last Admin: 06/09/24 10:23 Dose: 1,300 mg Documented By: MAXI Sodium Chloride (0.9 % Sodium Chloride Flush 3 Ml Syringe) 3 ml IVFLUSH QSHIFT [facility] Last Admin: 06/09/24 14:55 Dose: 3 ml Documented By: MAXI Sucralfate (Sucralfate 1 Gm Tablet) 1 gm PO QIDACHS [facility] Last Admin: 06/09/24 13:17 Dose: 1 gm Documented By: MAXI Labs 06/06/24 06:10 06/07/24 07:54 Labs: Laboratory Results - last 24 hr 06/08/24 06/08/24 06/09/24 16:11 20:37 07:07 POC Glucose 209 H 167 H 86 Microbiology Microbiology Results: Microbiology 06/01/24 14:25 Fungal Identification - Preliminary Thigh Right No growth to date. Assessment and Plan (1) Disseminated nocardiosis: Status: Acute (2) Skin nodule: Status: Acute (3) Lung mass: Status: Acute (4) Brain mass: Status: Acute Plan 64yo F with ESRD on HD MWF with failed transplant, HTN, HLD, HFrEF, DM2, GERD, esophagitis presented with weakness, missed HD on 05/26, found to be febrile due to PNA developed LUE/LLE weakness concerning for stroke MRI showed peripherally enhancing nodules within the right thalamus, left parietal lobe and at the right temporo-occipital junction maybe secondary to metastatic disease or an inflammatory/infectious CT chest showed spiculated soft tissue masses both lungs largest in the right middle lobe laterally and posterior right upper lobe, necrotic appearing pleural based lesions right hemithorax; findings consistent with advanced malignancy; suspected right basilar loculated pleural abscess measuring up to 9 cm, smooth interlobular septal thickening right greater than left lungs with small layering pleural effusion findings consistent with super imposed pulmonary edema fluid from thigh nodule with Gram-positive filamentous bacteria ultimately likely has disseminated nocardiosis rather than metastatic cancer Possible disseminated nocardiosis [skin, lung, brain] - Micro sent out sample for Nocardia cultures/speciation/susceptibilities; Spoke with ID she recommend to continue renally-dosed IV TMP-SMX and linezolid by mouth started on 06/03, for 6 weeks and possibly longer ,wait for final report that will be available end of this week - previously was on ceftriaxone + azithromycin 05/28-06/01, then vanco + piperacillin-tazobactam 06/01-06/03 - s/p dexamethasone [started for concern of cerebral edema fron brain mets] placed back on prednisone 7.5 mg/d - Pulm following - TTE with no vegetations - BCx x2 negative/persistent leukocytosis likely related to steroids - called lab cultures not yet back. anemia of ESRD - improved after transfused 1u pRBCs 05/29; FOBT negative; gave epo 56627 units 05/29 and continue epo MWF with HD hypoK - repleted hyperK - resolved after HD 05/28 ESRD on HD - continue HD MWF renal transplant - continue prednisone + tacrolimus chronic HFrEF - continue Imdur, carvedilol, volume management by dialysis GERD/esophagitis - PPI, sucralfate DM2 -blood sugars improved, malaika-dose lispro mood disorder - sertraline severe malnutrition - continue supplements stage II pressure injury sacrum - seen by wound nurse; continue foam dressing and protection from friction and moisture and protect bony prominences, high- protein diet. dispo - PT recommended home with services; will also need home infusion of TMP- SMX q8h via port; linezolid PO, PT recommend transfer patient in ambulance at discharge if goes home. VTE ppx - UFH In my clinical judgment, patient requires continued inpatient hospitalization for the following reasons: IV ABX and follow-up on final cultures. Quality Stroke Does the patient have a stroke diagnosis?: No VTE Prior VTE?: No VTE Risk Level:: Medical - moderate - high VTE Device Contraindication: N/A - Device Ordered VTE Drug Contraindication: N/A - Med Ordered
[2024-06-09 15:39] LABS: Glucose, Whole Blood 122 mg/dL (60-115)
--- NOTE | 2024-06-09 16:05 | MHC.CM.PN ---
PER [facility] PT IS ACTUALLY 100% COVERED FOR IV ABX, LIAISON DOES REPORT THAT IV BACTRIM DOES NEED TO BE MIXED DAILY/PER USE AND IS DIFFICULT EVEN FOR NURSES.
[2024-06-09 20:00] VITALS: BP 148/71; PULSE 70; RESP 18; TEMP 37.2; O2SAT 100
[2024-06-09] MEDS: Melatonin 3 MG TABLET 6 MG PO (20:22)
[2024-06-09] MEDS: Loperamide HCl 2 MG CAPSULE PO (20:32)
[2024-06-09 22:42] LABS: Glucose, Whole Blood 265 mg/dL (60-115)
[2024-06-09] MEDS: Insulin Lispro 100 UNIT/ML 3 ML VIAL SUBCUT (22:48)
[2024-06-10] VITALS: BP 144/65; PULSE 77; RESP 18; TEMP 37.2; O2SAT 98
[2024-06-10] MEDS: Linezolid 600 MG TABLET PO ×2 (00:44→15:14)
[2024-06-10] MEDS: Heparin Sodium,Porcine 5,000 UNIT/ML VIAL 5000 UNIT SUBCUT ×2 (00:44→15:14)
[2024-06-10 03:24] VITALS: BP 161/77; PULSE 73; RESP 18; TEMP 36.7; O2SAT 100
[2024-06-10] MEDS: Omeprazole 20 MG CAPSULE.DR PO (06:28)
[2024-06-10] MEDS: Sucralfate 1 GM TABLET PO ×4 (06:28→20:55)
[2024-06-10] MEDS: DEXTROSE 5% IV ×2 (06:29→15:25)
[2024-06-10] MEDS: SULFAMETHOXAZOLE IV ×2 (06:29→15:25)
[2024-06-10] MEDS: TRIMETHOPRIM IV ×2 (06:29→15:25)
[2024-06-10 07:46] VITALS: BP 138/60; PULSE 69; RESP 18; O2SAT 100
[2024-06-10 08:11] LABS: Glucose, Whole Blood 138 mg/dL (60-115)
--- NOTE | 2024-06-10 08:58 | P.PNNP_ITS ---
Subjective Subjective Date of Service: 06/10/24 Interval history: Events noted Physical Exam 2 Vital Signs: Vital Signs: Last Vital Signs Temp 98.1 F 06/10/24 03:24 Pulse 69 06/10/24 07:46 Resp 18 06/10/24 07:46 BP 138/60 06/10/24 07:46 Pulse Ox 100 06/10/24 07:46 O2 Del Method Room Air 06/10/24 07:46 O2 Flow Rate 98 06/07/24 04:00 BMI result Body Mass Index 17.5 Const: General: no acute distress Orientation/consciousness: patient oriented x3 Eyes: EOM: EOMs intact bilaterally Neck: Neck: Yes supple Resp: Auscultation: diminished lung sounds Cardio: Rate: regular rate GI: Palpation (GI): Soft to palpation Neuro: General: patient oriented x3 and moves all extremities Objective Data Labs 06/06/24 06:10 06/07/24 07:54 Labs: Laboratory Results - last 24 hr 06/09/24 06/09/24 06/10/24 11:25 22:32 07:55 POC Glucose 122 H 265 H 138 H Microbiology Microbiology Results: Microbiology 06/01/24 14:25 Thigh Right Fungal Identification - Preliminary No growth to date. 06/01/24 14:25 Thigh Right Gram Stain - Final 06/01/24 14:25 Thigh Right Routine Culture - Preliminary Gram positive ambreen 05/27/24 21:48 Blood - Venous Blood Culture - Final No growth after 5 days. 05/27/24 21:44 Blood - Venous Blood Culture - Final No growth after 5 days. Procedures Date of Service Date of Service: 06/10/24 Assessment & Plan Assessment and plan (1) ESRD (end stage renal disease) on dialysis: Status: Acute Plan Usually gets HD on MWF Next HD tomorrow Has a functioning AVF Low Na/K diet with fluid restriction Procrit 77391 MWF to keep Hb ~ 10 Getting treatment for Nocardiosis s/p Kidney transplant On [place]/Prednisone On Bactrim IV q 8 hrly Watch Potassium Continue rest of current management for now Time Spent With Patient Time: Total time managing care of this patient today ____ minutes. Progress Note: Quality Stroke Does the patient have a stroke diagnosis?: No
[2024-06-10] MEDS: Isosorbide Mononitrate 30 MG TAB.ER.24H PO (09:03)
[2024-06-10] MEDS: TACROLIMUS 1 MG 8 EACH PO (09:03)
[2024-06-10] MEDS: predniSONE 2.5 MG TABLET 7.5 MG PO (09:03)
[2024-06-10] MEDS: Sertraline HCL 25 MG TABLET PO (09:03)
[2024-06-10] MEDS: 0.9 % Sodium Chloride Flush 3 ML SYRINGE IVFLUSH ×3 (09:04→20:56)
[2024-06-10] MEDS: Multivitamin TABLET 1 TAB PO (09:04)
[2024-06-10] MEDS: Sodium Bicarbonate 650 MG TABLET 1300 MG PO ×2 (09:04→20:55)
[2024-06-10] MEDS: carvediloL 25 MG TABLET PO ×2 (09:04→20:56)
[2024-06-10] MEDS: Magnesium Oxide 400 MG TABLET PO ×2 (09:04→20:55)
--- NOTE | 2024-06-10 10:46 | MHC.CM.PN ---
Pt.'s preference is to DC to home, Home infusion has been in touch with family and will meet with them 06/11/24 here at 8am to teach son process.
[2024-06-10 11:27] VITALS: BP 131/63; PULSE 69; RESP 18; TEMP 36.7; O2SAT 100
[2024-06-10 11:34] LABS: Glucose, Whole Blood 145 mg/dL (60-115)
[2024-06-10] MEDS: Loperamide HCl 2 MG CAPSULE PO (12:46)
--- NOTE | 2024-06-10 13:41 | HO.PM.IMPN ---
Subjective Subjective Date of Service: 06/10/24 Interval History: Offers no acute complaints Left upper extremity and lower extremity strength is improving Tolerating diet. Review of Systems All other system reviewed and are negative. Physical Exam Vital Signs: Vital Signs: Last Vital Signs Temp 98.0 F 06/10/24 11:27 Pulse 69 06/10/24 11:27 Resp 18 06/10/24 11:27 BP 131/63 06/10/24 11:27 Pulse Ox 100 06/10/24 11:27 O2 Del Method Room Air 06/10/24 11:27 O2 Flow Rate 98 06/07/24 04:00 BMI result Body Mass Index 17.5 Const: Other: Gen: in no acute distress, muscle wasting HEENT: sclera anicteric, moist mucus membranes Neck: supple Lungs: port R subclavian, diminished breath sounds Heart: regular rate and rhythm, no murmurs Abd: soft, non-tender, non-distended Ext: no edema Skin: warm/well-perfused, multiple skin nodules Neuro: alert and oriented x3, LUE and LLE strength improving Psych: appropriate affect Objective Data Active Medications Acetaminophen (Acetaminophen 325 Mg Tablet) 650 mg PO Q6H PRN PRN Reason: Pain, Mild 1-3,fever,headache Last Admin: 06/06/24 16:10 Dose: 650 mg Documented By: RASHEEDA Calcium Carbonate (Calcium Carbonate 750 Mg Tab.Chew) 750 mg PO Q4H PRN PRN Reason: Heartburn Carvedilol (Carvedilol 25 Mg Tablet) 25 mg PO BID [facility]; Protocol Last Admin: 06/10/24 09:04 Dose: 25 mg Documented By: MAXI Dextrose (Dextrose 50 % 25 Gm/50 Ml Syringe) 25 gm IVPUSH Q15M PRN; Protocol PRN Reason: per Hypoglycemia Standing Ord. Diphenhydramine HCl (Diphenhydramine Hcl 25 Mg Capsule) 25 mg PO BID PRN PRN Reason: itchiness Last Admin: 06/06/24 14:38 Dose: 25 mg Documented By: RASHEEDA Docusate Sodium (Docusate Sodium 100 Mg Capsule) 100 mg PO DAILY PRN PRN Reason: Constipation Epoetin Bassem-epbx (Epoetin Bassem-Epbx 20,000 Unit/Ml Vial) 20,000 unit SUBCUT MOWEFR [facility] Last Admin: 06/09/24 14:54 Dose: 20,000 unit Documented By: MAXI Glucose (Glucose Gel 15 Gm Gel..Gram.) 15 gm PO Q15M PRN; Protocol PRN Reason: per Hypoglycemia Standing Ord. Heparin Sodium (Porcine) (Heparin Sodium,Porcine 5,000 Unit/Ml Vial) 5,000 unit SUBCUT Q12H [facility] Last Admin: 06/10/24 00:44 Dose: 5,000 unit Documented By: JOANNA Trimethoprim/Sulfamethoxazole (184 mg/ Dextrose) 511.5 mls @ 225 mls/hr IV Q8H [facility] Last Infusion: 06/10/24 08:46 Dose: Infused Documented By: MAXI Insulin Human Lispro (Insulin Lispro 100 Unit/Ml 3 Ml Vial) 0 unit SUBCUT QIDACHS [facility]; Protocol Last Admin: 06/10/24 12:25 Dose: Not Given Documented By: MAXI Non-Admin Reason: No Insulin Coverage Isosorbide Mononitrate (Isosorbide Mononitrate 30 Mg Tab.Er.24h) 30 mg PO DAILY [facility]; Protocol Last Admin: 06/10/24 09:03 Dose: 30 mg Documented By: MAXI Lidocaine HCl (Lidocaine Hcl 1 % Mpf 2 Ml Vial) 0.5 ml SUBCUT MOWEFR@1645 [facility] Last Admin: 06/09/24 16:42 Dose: Not Given Documented By: MAXI Non-Admin Reason: dialysis Linezolid (Linezolid 600 Mg Tablet) 600 mg PO Q12H [facility] Last Admin: 06/10/24 00:44 Dose: 600 mg Documented By: JOANNA Loperamide HCl (Loperamide Hcl 2 Mg Capsule) 2 mg PO Q4H PRN PRN Reason: diarrhea Last Admin: 06/10/24 12:46 Dose: 2 mg Documented By: MAXI Magnesium Hydroxide (Milk Of Magnesia 30 Ml Oral.Susp) 30 ml PO DAILY PRN PRN Reason: Constipation Magnesium Oxide (Magnesium Oxide 400 Mg Tablet) 400 mg PO BID [facility] Last Admin: 06/10/24 09:04 Dose: 400 mg Documented By: MAXI Melatonin (Melatonin 3 Mg Tablet) 6 mg PO BEDTIME PRN PRN Reason: Insomnia Last Admin: 06/09/24 20:22 Dose: 6 mg Documented By: JOANNA Multivitamins/Vitamin C (Multivitamin Tablet) 1 tab PO DAILY [facility] Last Admin: 06/10/24 09:04 Dose: 1 tab Documented By: MAXI Non-Formulary Medication ( Tacrolimus 1 Mg Tablet Extended Release 24 Hr) 8 mg PO DAILY [facility] Last Admin: 06/10/24 09:03 Dose: 8 mg Documented By: MAXI Omeprazole (Omeprazole 20 Mg Capsule.Dr) 20 mg PO DAILY@0630 [facility] Last Admin: 06/10/24 06:28 Dose: 20 mg Documented By: JOANNA Ondansetron HCl (Ondansetron Hcl 4 Mg/2 Ml Vial) 4 mg IVPUSH Q8H PRN PRN Reason: Nausea and Vomiting Last Admin: 06/06/24 00:34 Dose: 4 mg Documented By: JENNIFER Comments: Nausea Polyethylene Glycol (Polyethylene Glycol 3350 17 Gm Powd.Pack) 17 gm PO DAILY PRN PRN Reason: Constipation Prednisone (Prednisone 2.5 Mg Tablet) 7.5 mg PO DAILY [facility] Last Admin: 06/10/24 09:03 Dose: 7.5 mg Documented By: MAXI Sertraline HCl (Sertraline Hcl 25 Mg Tablet) 25 mg PO DAILY [facility] Last Admin: 06/10/24 09:03 Dose: 25 mg Documented By: MAXI Sodium Bicarbonate (Sodium Bicarbonate 650 Mg Tablet) 1,300 mg PO BID [facility] Last Admin: 06/10/24 09:04 Dose: 1,300 mg Documented By: MAXI Sodium Chloride (0.9 % Sodium Chloride Flush 3 Ml Syringe) 3 ml IVFLUSH QSHIFT [facility] Last Admin: 06/10/24 09:04 Dose: 3 ml Documented By: MAXI Sucralfate (Sucralfate 1 Gm Tablet) 1 gm PO QIDACHS [facility] Last Admin: 06/10/24 12:46 Dose: 1 gm Documented By: MAXI Labs 06/06/24 06:10 06/07/24 07:54 Labs: Laboratory Results - last 24 hr 06/09/24 06/09/24 06/10/24 11:25 22:32 07:55 POC Glucose 122 H 265 H 138 H 06/10/24 11:28 POC Glucose 145 H Assessment and Plan (1) Disseminated nocardiosis: Status: Acute (2) Skin nodule: Status: Acute (3) Lung mass: Status: Acute (4) Brain mass: Status: Acute Plan 64yo F with ESRD on HD MWF with failed transplant, HTN, HLD, HFrEF, DM2, GERD, esophagitis presented with weakness, missed HD on 05/26, found to be febrile due to PNA developed LUE/LLE weakness concerning for stroke MRI showed peripherally enhancing nodules within the right thalamus, left parietal lobe and at the right temporo-occipital junction maybe secondary to metastatic disease or an inflammatory/infectious CT chest showed spiculated soft tissue masses both lungs largest in the right middle lobe laterally and posterior right upper lobe, necrotic appearing pleural based lesions right hemithorax; findings consistent with advanced malignancy; suspected right basilar loculated pleural abscess measuring up to 9 cm, smooth interlobular septal thickening right greater than left lungs with small layering pleural effusion findings consistent with super imposed pulmonary edema fluid from thigh nodule with Gram-positive filamentous bacteria ultimately likely has disseminated nocardiosis rather than metastatic cancer Possible disseminated nocardiosis [skin, lung, brain] - Micro sent out sample for Nocardia cultures/speciation/susceptibilities; Spoke with ID she recommend to continue renally-dosed IV TMP-SMX and linezolid by mouth started on 06/03, for 6 weeks and possibly longer ,wait for final report that will be available end of this week - previously was on ceftriaxone + azithromycin 05/28-06/01, then vanco + piperacillin-tazobactam 06/01-06/03 - s/p dexamethasone [started for concern of cerebral edema fron brain mets] placed back on prednisone 7.5 mg/d - Pulm following - TTE with no vegetations - BCx x2 negative/persistent leukocytosis likely related to steroids - called lab cultures not yet back, will take additional 3-5 days. -spoke with ID she recommend to continue above treatment and hold on discharge till final sensitivities are back anemia of ESRD - improved after transfused 1u pRBCs 05/29; FOBT negative; gave epo 61080 units 05/29 and continue epo MWF with HD hypoK - repleted hyperK - resolved after HD 05/28 ESRD on HD - continue HD MWF renal transplant - continue prednisone + tacrolimus chronic HFrEF - continue Imdur, carvedilol, volume management by dialysis GERD/esophagitis - PPI, sucralfate DM2 -blood sugars improved, malaika-dose lispro mood disorder - sertraline severe malnutrition - continue supplements stage II pressure injury sacrum - seen by wound nurse; continue foam dressing and protection from friction and moisture and protect bony prominences, high-protein diet. dispo - PT recommended home with services; will also need home infusion of TMP-SMX q8h via port; linezolid PO, PT recommend transfer patient in ambulance at discharge if goes home. VTE ppx - UFH In my clinical judgment, patient requires continued inpatient hospitalization for the following reasons: IV ABX and follow-up on final cultures. Quality Stroke Does the patient have a stroke diagnosis?: No VTE Prior VTE?: No VTE Risk Level:: Medical - moderate - high VTE Device Contraindication: N/A - Device Ordered VTE Drug Contraindication: N/A - Med Ordered
[2024-06-10 16:35] LABS: Glucose, Whole Blood 256 mg/dL (60-115)
[2024-06-10] MEDS: Insulin Lispro 100 UNIT/ML 3 ML VIAL SUBCUT (17:34)
[2024-06-10 19:35] VITALS: BP 152/69; PULSE 72; RESP 18; TEMP 36.2; O2SAT 100
[2024-06-10 20:07] LABS: Glucose, Whole Blood 148 mg/dL (60-115)
[2024-06-10] MEDS: Melatonin 3 MG TABLET 6 MG PO (20:56)
[2024-06-11] VITALS: BP 151/67; PULSE 65; RESP 18; TEMP 36.6; O2SAT 100
[2024-06-11] MEDS: TRIMETHOPRIM IV ×3 (00:41→23:28)
[2024-06-11] MEDS: SULFAMETHOXAZOLE IV ×3 (00:41→23:28)
[2024-06-11] MEDS: DEXTROSE 5% IV ×3 (00:41→23:28)
[2024-06-11] MEDS: Heparin Sodium,Porcine 5,000 UNIT/ML VIAL 5000 UNIT SUBCUT ×2 (01:09→13:36)
[2024-06-11] MEDS: Linezolid 600 MG TABLET PO ×2 (01:09→13:36)
[2024-06-11 04:00] VITALS: BP 154/71; PULSE 66; RESP 18; TEMP 36.7; O2SAT 97
[2024-06-11] MEDS: ondansetron HCL 4 MG/2 ML VIAL IVPUSH ×2 (06:21→13:09)
[2024-06-11 07:30] LABS: Glucose, Whole Blood 91 mg/dL (60-115)
[2024-06-11 08:00] VITALS: BP 153/69; PULSE 62; RESP 16; TEMP 36.7; O2SAT 98
--- NOTE | 2024-06-11 11:57 | HO.PM.IMPN ---
Subjective Subjective Date of Service: 06/11/24 Interval History: Seen at hemodialysis Feeling better complaining of mild nausea otherwise denies worsening weakness, no new neurological symptoms, no headache, no dizziness, tolerating diet. Last bowel movement 06/10 Review of Systems All other system reviewed and are negative. Physical Exam Vital Signs: Vital Signs: Last Vital Signs Temp 98.0 F 06/11/24 08:00 Pulse 62 06/11/24 08:00 Resp 16 06/11/24 08:00 BP 153/69 H 06/11/24 08:00 Pulse Ox 98 06/11/24 08:00 O2 Del Method Room Air 06/11/24 08:00 O2 Flow Rate 98 06/07/24 04:00 BMI result Body Mass Index 17.5 Const: Other: Gen: in no acute distress, muscle wasting HEENT: sclera anicteric, moist mucus membranes Neck: supple Lungs: port R subclavian, diminished breath sounds Heart: regular rate and rhythm, no murmurs Abd: soft, non-tender, non-distended Ext: no edema Skin: warm/well-perfused, multiple skin nodules Neuro: alert and oriented x3, LUE and LLE strength improving Psych: appropriate affect Objective Data Active Medications Acetaminophen (Acetaminophen 325 Mg Tablet) 650 mg PO Q6H PRN PRN Reason: Pain, Mild 1-3,fever,headache Last Admin: 06/06/24 16:10 Dose: 650 mg Documented By: RASHEEDA Calcium Carbonate (Calcium Carbonate 750 Mg Tab.Chew) 750 mg PO Q4H PRN PRN Reason: Heartburn Carvedilol (Carvedilol 25 Mg Tablet) 25 mg PO BID [facility]; Protocol Last Admin: 06/10/24 20:56 Dose: 25 mg Documented By: JOANNA Dextrose (Dextrose 50 % 25 Gm/50 Ml Syringe) 25 gm IVPUSH Q15M PRN; Protocol PRN Reason: per Hypoglycemia Standing Ord. Diphenhydramine HCl (Diphenhydramine Hcl 25 Mg Capsule) 25 mg PO BID PRN PRN Reason: itchiness Last Admin: 06/06/24 14:38 Dose: 25 mg Documented By: RASHEEDA Docusate Sodium (Docusate Sodium 100 Mg Capsule) 100 mg PO DAILY PRN PRN Reason: Constipation Epoetin Bassem-epbx (Epoetin Bassem-Epbx 20,000 Unit/Ml Vial) 20,000 unit SUBCUT MOWEFR [facility] Last Admin: 06/09/24 14:54 Dose: 20,000 unit Documented By: MAXI Glucose (Glucose Gel 15 Gm Gel..Gram.) 15 gm PO Q15M PRN; Protocol PRN Reason: per Hypoglycemia Standing Ord. Heparin Sodium (Porcine) (Heparin Sodium,Porcine 5,000 Unit/Ml Vial) 5,000 unit SUBCUT Q12H [facility] Last Admin: 06/11/24 01:09 Dose: 5,000 unit Documented By: JOANNA Trimethoprim/Sulfamethoxazole (184 mg/ Dextrose) 511.5 mls @ 225 mls/hr IV Q8H [facility] Last Admin: 06/11/24 07:17 Dose: 225 mls/hr Documented By: JOANNA Insulin Human Lispro (Insulin Lispro 100 Unit/Ml 3 Ml Vial) 0 unit SUBCUT QIDACHS [facility]; Protocol Last Admin: 06/11/24 07:32 Dose: Not Given Documented By: RAMON Non-Admin Reason: No Insulin Coverage Isosorbide Mononitrate (Isosorbide Mononitrate 30 Mg Tab.Er.24h) 30 mg PO DAILY [facility]; Protocol Last Admin: 06/10/24 09:03 Dose: 30 mg Documented By: MAXI Lidocaine HCl (Lidocaine Hcl 1 % Mpf 2 Ml Vial) 0.5 ml SUBCUT MOWEFR@1645 [facility] Last Admin: 06/09/24 16:42 Dose: Not Given Documented By: MAXI Non-Admin Reason: dialysis Linezolid (Linezolid 600 Mg Tablet) 600 mg PO Q12H [facility] Last Admin: 06/11/24 01:09 Dose: 600 mg Documented By: JOANNA Loperamide HCl (Loperamide Hcl 2 Mg Capsule) 2 mg PO Q4H PRN PRN Reason: diarrhea Last Admin: 06/10/24 12:46 Dose: 2 mg Documented By: MAXI Magnesium Hydroxide (Milk Of Magnesia 30 Ml Oral.Susp) 30 ml PO DAILY PRN PRN Reason: Constipation Magnesium Oxide (Magnesium Oxide 400 Mg Tablet) 400 mg PO BID [facility] Last Admin: 06/10/24 20:55 Dose: 400 mg Documented By: JOANNA Melatonin (Melatonin 3 Mg Tablet) 6 mg PO BEDTIME PRN PRN Reason: Insomnia Last Admin: 06/10/24 20:56 Dose: 6 mg Documented By: JOANNA Multivitamins/Vitamin C (Multivitamin Tablet) 1 tab PO DAILY [facility] Last Admin: 06/10/24 09:04 Dose: 1 tab Documented By: MAXI Non-Formulary Medication ( Tacrolimus 1 Mg Tablet Extended Release 24 Hr) 8 mg PO DAILY [facility] Last Admin: 06/10/24 09:03 Dose: 8 mg Documented By: MAXI Omeprazole (Omeprazole 20 Mg Capsule.Dr) 20 mg PO DAILY@0630 [facility] Last Admin: 06/11/24 06:16 Dose: Not Given Documented By: JOANNA Non-Admin Reason: Patient Refused Ondansetron HCl (Ondansetron Hcl 4 Mg/2 Ml Vial) 4 mg IVPUSH Q8H PRN PRN Reason: Nausea and Vomiting Last Admin: 06/11/24 06:21 Dose: 4 mg Documented By: JOANNA Ondansetron HCl (Ondansetron Hcl 4 Mg/2 Ml Vial) 4 mg IVPUSH ONCE ONE Stop: 06/11/24 11:58 Polyethylene Glycol (Polyethylene Glycol 3350 17 Gm Powd.Pack) 17 gm PO DAILY PRN PRN Reason: Constipation Prednisone (Prednisone 2.5 Mg Tablet) 7.5 mg PO DAILY [facility] Last Admin: 06/10/24 09:03 Dose: 7.5 mg Documented By: MAXI Sertraline HCl (Sertraline Hcl 25 Mg Tablet) 25 mg PO DAILY [facility] Last Admin: 06/10/24 09:03 Dose: 25 mg Documented By: MAXI Sodium Bicarbonate (Sodium Bicarbonate 650 Mg Tablet) 1,300 mg PO BID [facility] Last Admin: 06/10/24 20:55 Dose: 1,300 mg Documented By: JOANNA Sodium Chloride (0.9 % Sodium Chloride Flush 3 Ml Syringe) 3 ml IVFLUSH QSHIFT [facility] Last Admin: 06/11/24 10:29 Dose: Not Given Documented By: RAMON Non-Admin Reason: Off unit: Dialysis Sucralfate (Sucralfate 1 Gm Tablet) 1 gm PO QIDACHS [facility] Last Admin: 06/11/24 10:29 Dose: Not Given Documented By: RAMON Non-Admin Reason: Off unit: Dialysis Labs 06/06/24 06:10 06/07/24 07:54 Labs: Laboratory Results - last 24 hr 06/10/24 06/10/24 06/11/24 16:30 20:04 07:17 POC Glucose 256 H 148 H 91 Assessment and Plan (1) Disseminated nocardiosis: Status: Acute (2) Skin nodule: Status: Acute (3) Lung mass: Status: Acute (4) Brain mass: Status: Acute Plan 64yo F with ESRD on HD MWF with failed transplant, HTN, HLD, HFrEF, DM2, GERD, esophagitis presented with weakness, missed HD on 05/26, found to be febrile due to PNA developed LUE/LLE weakness concerning for stroke MRI showed peripherally enhancing nodules within the right thalamus, left parietal lobe and at the right temporo-occipital junction maybe secondary to metastatic disease or an inflammatory/infectious CT chest showed spiculated soft tissue masses both lungs largest in the right middle lobe laterally and posterior right upper lobe, necrotic appearing pleural based lesions right hemithorax; findings consistent with advanced malignancy; suspected right basilar loculated pleural abscess measuring up to 9 cm, smooth interlobular septal thickening right greater than left lungs with small layering pleural effusion findings consistent with super imposed pulmonary edema fluid from thigh nodule with Gram-positive filamentous bacteria ultimately likely has disseminated nocardiosis rather than metastatic cancer Possible disseminated nocardiosis [skin, lung, brain] - Micro sent out sample for Nocardia cultures/speciation/susceptibilities spoke with micro will take 3-5 days Spoke with ID she recommend to continue renally-dosed IV TMP-SMX and linezolid by mouth started on 06/03, for 6 weeks and possibly longer ,wait for final report prior to discharge - previously was on ceftriaxone + azithromycin 05/28-06/01, then vanco + piperacillin-tazobactam 06/01-06/03 - s/p dexamethasone [started for concern of cerebral edema fron brain mets] placed back on prednisone 7.5 mg/d - Pulm following - TTE with no vegetations - BCx x2 negative/persistent leukocytosis likely related to steroids anemia of ESRD - improved after transfused 1u pRBCs 05/29; FOBT negative; gave epo 14527 units 05/29 and continue epo MWF with HD hypoK - repleted hyperK - resolved after HD 05/28 ESRD on HD - continue HD MWF renal transplant - continue prednisone + tacrolimus chronic HFrEF - continue Imdur, carvedilol, volume management by dialysis GERD/esophagitis - PPI, sucralfate DM2 -blood sugars stable, malaika-dose lispro mood disorder - sertraline severe malnutrition - continue supplements stage II pressure injury sacrum - seen by wound nurse; continue foam dressing and protection from friction and moisture and protect bony prominences, high-protein diet. dispo - PT recommended home with services; need home infusion of TMP-SMX q8h via port; linezolid PO, PT recommend transfer patient in ambulance at discharge if goes home. Will need PICC line for IV antibiotics VTE ppx - heparin subQ 5000 q.12 hours In my clinical judgment, patient requires continued inpatient hospitalization for the following reasons: IV ABX and follow-up on final cultures. Quality Stroke Does the patient have a stroke diagnosis?: No VTE Prior VTE?: No VTE Risk Level:: Medical - moderate - high VTE Device Contraindication: N/A - Device Ordered VTE Drug Contraindication: N/A - Med Ordered
[2024-06-11 13:14] LABS: Glucose, Whole Blood 102 mg/dL (60-115)
[2024-06-11] MEDS: Acetaminophen 325 MG TABLET 650 MG PO (13:35)
[2024-06-11] MEDS: Isosorbide Mononitrate 30 MG TAB.ER.24H PO (13:35)
[2024-06-11] MEDS: Sodium Bicarbonate 650 MG TABLET 1300 MG PO ×2 (13:35→21:44)
[2024-06-11] MEDS: Multivitamin TABLET 1 TAB PO (13:35)
[2024-06-11] MEDS: predniSONE 2.5 MG TABLET 7.5 MG PO (13:35)
[2024-06-11] MEDS: Sucralfate 1 GM TABLET PO ×3 (13:35→21:44)
[2024-06-11] MEDS: TACROLIMUS 1 MG 8 EACH PO (13:36)
[2024-06-11] MEDS: carvediloL 25 MG TABLET PO ×2 (13:36→21:45)
[2024-06-11] MEDS: Magnesium Oxide 400 MG TABLET PO ×2 (13:36→21:44)
[2024-06-11] MEDS: Sertraline HCL 25 MG TABLET PO (13:36)
--- NOTE | 2024-06-11 13:49 | MHC.CM.PN ---
EMR REVIEWED, PER HOSPITALIST PT WILL REMAIN INPT ANOTHER 2/3 DAYS D/T AWAITING FINAL CULTURES TO RETURN, [facility] UPDATED, [facility] FOLLOWING IN CASE TEACH DOES NOT GO WELL AND PT NEEDS STR, CM WILL CONT TO FOLLOW DC NEEDS.
[2024-06-11] MEDS: 0.9 % Sodium Chloride Flush 3 ML SYRINGE IVFLUSH ×2 (14:47→23:29)
[2024-06-11 16:15] LABS: Glucose, Whole Blood 172 mg/dL (60-115)
[2024-06-11] MEDS: Loperamide HCl 2 MG CAPSULE PO ×2 (16:19→21:44)
[2024-06-11] MEDS: Insulin Lispro 100 UNIT/ML 3 ML VIAL SUBCUT ×2 (16:19→21:47)
[2024-06-11 18:50] VITALS: BP 159/72; PULSE 69; RESP 16; TEMP 36.5; O2SAT 99
--- NOTE | 2024-06-11 19:54 | P.PNNP_ITS ---
Subjective Subjective Date of Service: 06/11/24 Interval history: Seen at hemodialysis; Feels better Physical Exam 2 Vital Signs: Vital Signs: Last Vital Signs Temp 97.7 F 06/11/24 18:50 Pulse 69 06/11/24 18:50 Resp 16 06/11/24 18:50 BP 159/72 H 06/11/24 18:50 Pulse Ox 99 06/11/24 18:50 O2 Del Method Room Air 06/11/24 18:50 O2 Flow Rate 98 06/07/24 04:00 BMI result Body Mass Index 17.5 Const: General: no acute distress Orientation/consciousness: patient oriented x3 Eyes: EOM: EOMs intact bilaterally Neck: Neck: Yes supple Resp: Auscultation: diminished lung sounds Cardio: Rate: regular rate GI: Palpation (GI): Soft to palpation Neuro: General: patient oriented x3 Objective Data Labs 06/06/24 06:10 06/07/24 07:54 Labs: Laboratory Results - last 24 hr 06/10/24 06/11/24 06/11/24 20:04 07:17 13:09 POC Glucose 148 H 91 102 06/11/24 16:08 POC Glucose 172 H Microbiology Microbiology Results: Microbiology 06/01/24 14:25 Thigh Right Fungal Identification - Preliminary No growth to date. 06/01/24 14:25 Thigh Right Gram Stain - Final 06/01/24 14:25 Thigh Right Routine Culture - Preliminary Gram positive ambreen 05/27/24 21:48 Blood - Venous Blood Culture - Final No growth after 5 days. 05/27/24 21:44 Blood - Venous Blood Culture - Final No growth after 5 days. Procedures Date of Service Date of Service: 06/11/24 Assessment & Plan Assessment and plan (1) ESRD (end stage renal disease) on dialysis: Status: Acute Plan Usually gets HD on MWF Getting dialyzed today Has a functioning AVF Low Na/K diet with fluid restriction Procrit 21038 MWF to keep Hb ~ 10 Getting treatment for Nocardiosis Has a Port which can be used for home IV antibiotics Continue rest of current management for now Time Spent With Patient Time: . Progress Note: Quality Stroke Does the patient have a stroke diagnosis?: No
[2024-06-11 20:00] VITALS: BP 129/67; PULSE 67; RESP 17; TEMP 36.8; O2SAT 96
[2024-06-11 21:29] LABS: Glucose, Whole Blood 200 mg/dL (60-115)
[2024-06-12] VITALS: BP 137/64; PULSE 68; RESP 17; TEMP 36.7; O2SAT 96
[2024-06-12] MEDS: Linezolid 600 MG TABLET PO ×2 (01:52→15:19)
[2024-06-12] MEDS: Heparin Sodium,Porcine 5,000 UNIT/ML VIAL 5000 UNIT SUBCUT ×2 (01:52→15:19)
[2024-06-12 04:00] VITALS: BP 163/73; PULSE 64; RESP 17; TEMP 36.6; O2SAT 100
[2024-06-12] MEDS: TRIMETHOPRIM IV ×3 (06:21→22:18)
[2024-06-12] MEDS: DEXTROSE 5% IV ×3 (06:21→22:18)
[2024-06-12] MEDS: SULFAMETHOXAZOLE IV ×3 (06:21→22:18)
[2024-06-12 07:23] VITALS: BP 156/70; PULSE 67; RESP 18; TEMP 36.9; O2SAT 100
[2024-06-12 07:32] LABS: Glucose, Whole Blood 139 mg/dL (60-115)
[2024-06-12] MEDS: 0.9 % Sodium Chloride Flush 3 ML SYRINGE IVFLUSH ×3 (09:17→22:19)
[2024-06-12] MEDS: Multivitamin TABLET 1 TAB PO (09:19)
[2024-06-12] MEDS: Sodium Bicarbonate 650 MG TABLET 1300 MG PO ×2 (09:19→20:50)
[2024-06-12] MEDS: predniSONE 2.5 MG TABLET 7.5 MG PO (09:19)
[2024-06-12] MEDS: Sertraline HCL 25 MG TABLET PO (09:19)
[2024-06-12] MEDS: Acetaminophen 325 MG TABLET 650 MG PO (09:19)
[2024-06-12] MEDS: Magnesium Oxide 400 MG TABLET PO ×2 (09:19→20:50)
[2024-06-12] MEDS: Isosorbide Mononitrate 30 MG TAB.ER.24H PO (09:19)
[2024-06-12] MEDS: Loperamide HCl 2 MG CAPSULE PO (09:19)
[2024-06-12] MEDS: Sucralfate 1 GM TABLET PO ×4 (09:19→20:50)
[2024-06-12] MEDS: carvediloL 25 MG TABLET PO ×2 (09:19→20:50)
[2024-06-12] MEDS: TACROLIMUS 1 MG 8 EACH PO (09:20)
--- NOTE | 2024-06-12 09:37 | P.PNIM_ITS ---
Subjective Subjective Date of Service: 06/12/24 Interval History: Being followed for left-sided weakness No acute events overnight, tolerating diet, no fevers, no chills, no headache or dizziness, no new neurological symptoms, no shortness of breath. Review of Systems All other system reviewed and are negative Physical Exam 2 Vital Signs: Vital Signs: Last Vital Signs Temp 98.5 F 06/12/24 07:23 Pulse 67 06/12/24 07:23 Resp 18 06/12/24 07:23 BP 156/70 H 06/12/24 07:23 Pulse Ox 100 06/12/24 07:23 O2 Del Method Room Air 06/12/24 07:23 O2 Flow Rate 98 06/07/24 04:00 BMI result Body Mass Index 17.5 Const: Other: Gen: in no acute distress, muscle wasting HEENT: sclera anicteric, moist mucus membranes Neck: supple Lungs: port R subclavian, diminished breath sounds Heart: regular rate and rhythm, no murmurs Abd: soft, non-tender, non-distended Ext: no edema Skin: warm/well-perfused, multiple skin nodules Neuro: alert and oriented x3, LUE and LLE strength improving Psych: appropriate affect Objective Data Active Medications Acetaminophen (Acetaminophen 325 Mg Tablet) 650 mg PO Q6H PRN PRN Reason: Pain, Mild 1-3,fever,headache Last Admin: 06/12/24 09:19 Dose: 650 mg Documented By: RAMON Calcium Carbonate (Calcium Carbonate 750 Mg Tab.Chew) 750 mg PO Q4H PRN PRN Reason: Heartburn Carvedilol (Carvedilol 25 Mg Tablet) 25 mg PO BID [facility]; Protocol Last Admin: 06/12/24 09:19 Dose: 25 mg Documented By: RAMON Dextrose (Dextrose 50 % 25 Gm/50 Ml Syringe) 25 gm IVPUSH Q15M PRN; Protocol PRN Reason: per Hypoglycemia Standing Ord. Diphenhydramine HCl (Diphenhydramine Hcl 25 Mg Capsule) 25 mg PO BID PRN PRN Reason: itchiness Last Admin: 06/06/24 14:38 Dose: 25 mg Documented By: RASHEEDA Docusate Sodium (Docusate Sodium 100 Mg Capsule) 100 mg PO DAILY PRN PRN Reason: Constipation Epoetin Bassem-epbx (Epoetin Bassem-Epbx 20,000 Unit/Ml Vial) 20,000 unit SUBCUT MOWEFR COUNTS INCLUDE 234 BEDS AT THE [facility] Last Admin: 06/11/24 14:46 Dose: 20,000 unit Documented By: RAMON Glucose (Glucose Gel 15 Gm Gel..Gram.) 15 gm PO Q15M PRN; Protocol PRN Reason: per Hypoglycemia Standing Ord. Heparin Sodium (Porcine) (Heparin Sodium,Porcine 5,000 Unit/Ml Vial) 5,000 unit SUBCUT Q12H [facility]S [facility]CLUDE 234 BEDS AT THE [facility] Last Admin: 06/12/24 01:52 Dose: 5,000 unit Documented By: JOANNA Trimethoprim/Sulfamethoxazole (184 mg/ Dextrose) 511.5 mls @ 225 mls/hr IV Q8H [facility]S [facility]CLUDE 234 BEDS AT THE [facility] Last Infusion: 06/12/24 09:20 Dose: Infused Documented By: RAMON Insulin Human Lispro (Insulin Lispro 100 Unit/Ml 3 Ml Vial) 0 unit SUBCUT QIDACHS COUNTS [facility]CLUDE 234 BEDS AT THE [facility]; Protocol Last Admin: 06/12/24 07:30 Dose: Not Given Documented By: RAMON Non-Admin Reason: No Insulin Coverage Isosorbide Mononitrate (Isosorbide Mononitrate 30 Mg Tab.Er.24h) 30 mg PO DAILY [facility] 234 BEDS AT [facility]; Protocol Last Admin: 06/12/24 09:19 Dose: 30 mg Documented By: RAMON Lidocaine HCl (Lidocaine Hcl 1 % Mpf 2 Ml Vial) 0.5 ml SUBCUT MOWEFR@1645 [facility]S [facility]CLUDE 234 BEDS AT THE [facility] Last Admin: 06/11/24 16:19 Dose: Not Given Documented By: RAMON Non-Admin Reason: ALREADY DID HD Linezolid (Linezolid 600 Mg Tablet) 600 mg PO Q12H [facility]S [facility]CLUDE 234 BEDS AT THE [facility] Last Admin: 06/12/24 01:52 Dose: 600 mg Documented By: JOANNA Loperamide HCl (Loperamide Hcl 2 Mg Capsule) 2 mg PO Q4H PRN PRN Reason: diarrhea Last Admin: 06/12/24 09:19 Dose: 2 mg Documented By: RAMON Magnesium Hydroxide (Milk Of Magnesia 30 Ml Oral.Susp) 30 ml PO DAILY PRN PRN Reason: Constipation Magnesium Oxide (Magnesium Oxide 400 Mg Tablet) 400 mg PO BID [facility]S [facility]CLUDE 234 BEDS AT [facility] Last Admin: 06/12/24 09:19 Dose: 400 mg Documented By: RAMON Melatonin (Melatonin 3 Mg Tablet) 6 mg PO BEDTIME PRN PRN Reason: Insomnia Last Admin: 06/10/24 20:56 Dose: 6 mg Documented By: JOANNA Multivitamins/Vitamin C (Multivitamin Tablet) 1 tab PO DAILY [facility]CLUDE 234 BEDS AT [facility] Last Admin: 06/12/24 09:19 Dose: 1 tab Documented By: RAMON Non-Formulary Medication ( Tacrolimus 1 Mg Tablet Extended Release 24 Hr) 8 mg PO DAILY [facility]S INCLUDE 234 BEDS AT THE [facility] Last Admin: 06/12/24 09:20 Dose: 8 mg Documented By: RAMON Omeprazole (Omeprazole 20 Mg Capsule.Dr) 20 mg PO DAILY@0630 COUNTS [facility]CLUDE 234 BEDS AT THE [facility] Last Admin: 06/12/24 06:23 Dose: Not Given Documented By: TERESA Non-Admin Reason: Patient Refused Ondansetron HCl (Ondansetron Hcl 4 Mg/2 Ml Vial) 4 mg IVPUSH Q8H PRN PRN Reason: Nausea and Vomiting Last Admin: 06/11/24 06:21 Dose: 4 mg Documented By: JOANNA Polyethylene Glycol (Polyethylene Glycol 3350 17 Gm Powd.Pack) 17 gm PO DAILY PRN PRN Reason: Constipation Prednisone (Prednisone 2.5 Mg Tablet) 7.5 mg PO DAILY [facility]CLUDE 234 BEDS AT [facility] Last Admin: 06/12/24 09:19 Dose: 7.5 mg Documented By: RAMON Sertraline HCl (Sertraline Hcl 25 Mg Tablet) 25 mg PO DAILY [facility]S [facility]CLUDE 234 BEDS AT THE [facility] Last Admin: 06/12/24 09:19 Dose: 25 mg Documented By: RAMON Sodium Bicarbonate (Sodium Bicarbonate 650 Mg Tablet) 1,300 mg PO BID [facility]S [facility]CLUDE 234 BEDS AT THE [facility] Last Admin: 06/12/24 09:19 Dose: 1,300 mg Documented By: RAMON Sodium Chloride (0.9 % Sodium Chloride Flush 3 Ml Syringe) 3 ml IVFLUSH QSHIFT COUNTS INCLUDE 234 BEDS AT THE [facility] Last Admin: 06/12/24 09:17 Dose: 3 ml Documented By: RAMON Sucralfate (Sucralfate 1 Gm Tablet) 1 gm PO QIDACHS COUNTS INCLUDE 234 BEDS AT THE [facility] Last Admin: 06/12/24 09:19 Dose: 1 gm Documented By: RAMON Labs 06/06/24 06:10 06/07/24 07:54 Labs: Laboratory Results - last 24 hr 06/11/24 06/11/24 06/11/24 13:09 16:08 21:20 POC Glucose 102 172 H 200 H 06/12/24 07:22 POC Glucose 139 H Assessment and Plan (1) Disseminated nocardiosis: Status: Acute (2) Skin nodule: Status: Acute (3) Lung mass: Status: Acute (4) Brain mass: Status: Acute Plan 64yo F with ESRD on HD MWF with failed transplant, HTN, HLD, HFrEF, DM2, GERD, esophagitis presented with weakness, missed HD on 05/26, found to be febrile due to PNA developed LUE/LLE weakness concerning for stroke MRI showed peripherally enhancing nodules within the right thalamus, left parietal lobe and at the right temporo-occipital junction maybe secondary to metastatic disease or an inflammatory/infectious CT chest showed spiculated soft tissue masses both lungs largest in the right middle lobe laterally and posterior right upper lobe, necrotic appearing pleural based lesions right hemithorax; findings consistent with advanced malignancy; suspected right basilar loculated pleural abscess measuring up to 9 cm, smooth interlobular septal thickening right greater than left lungs with small layering pleural effusion findings consistent with super imposed pulmonary edema fluid from thigh nodule with Gram-positive filamentous bacteria ultimately likely has disseminated nocardiosis rather than metastatic cancer Possible disseminated nocardiosis [skin, lung, brain] - Micro sent out sample for Nocardia cultures/speciation/susceptibilities spoke with micro will take 3-5 days Spoke with ID she recommend to continue renally-dosed IV TMP-SMX and linezolid by mouth started on 06/03, for 6 weeks and possibly longer ,wait for final report prior to discharge - previously was on ceftriaxone + azithromycin 05/28-06/01, then vanco + piperacillin-tazobactam 06/01-06/03 - s/p dexamethasone [started for concern of cerebral edema fron brain mets] placed back on prednisone 7.5 mg/d - Pulm following - TTE with no vegetations - BCx x2 negative/persistent leukocytosis likely related to steroids anemia of ESRD - improved after transfused 1u pRBCs 05/29; FOBT negative; gave epo 55186 units 05/29 and continue epo MWF with HD hypoK - repleted hyperK - resolved after HD 05/28 ESRD on HD - continue HD MWF renal transplant - continue prednisone + tacrolimus chronic HFrEF - continue Imdur, carvedilol, volume management by dialysis GERD/esophagitis - PPI, sucralfate DM2 -blood sugars stable, on sliding scale insulin at home, continue malaika-dose lispro mood disorder - sertraline severe malnutrition - continue supplements stage II pressure injury sacrum - seen by wound nurse; continue foam dressing and protection from friction and moisture and protect bony prominences, high- protein diet. dispo - PT recommended home with services; need home infusion of TMP-SMX q8h via port; linezolid PO, PT recommend transfer patient in ambulance at discharge if goes home. Will need PICC line for IV antibiotics VTE ppx - heparin subQ 5000 q.12 hours In my clinical judgment, patient requires continued inpatient hospitalization for the following reasons: IV ABX and follow-up on final cultures. Quality Stroke Does the patient have a stroke diagnosis?: No VTE Prior VTE?: No VTE Risk Level:: Medical - moderate - high VTE Device Contraindication: N/A - Device Ordered VTE Drug Contraindication: N/A - Med Ordered
[2024-06-12 10:49] LABS: Glucose, Whole Blood 132 mg/dL (60-115)
[2024-06-12 11:07] VITALS: BP 134/62; PULSE 63; RESP 16; TEMP 37; O2SAT 98
[2024-06-12 15:12] VITALS: BP 139/65; PULSE 69; RESP 18; TEMP 36.4; O2SAT 100
[2024-06-12 16:11] LABS: Glucose, Whole Blood 249 mg/dL (60-115)
[2024-06-12] MEDS: Insulin Lispro 100 UNIT/ML 3 ML VIAL SUBCUT ×2 (16:19→20:50)
[2024-06-12 19:45] VITALS: BP 141/65; PULSE 65; RESP 16; TEMP 36.5; O2SAT 100
[2024-06-12 20:44] LABS: Glucose, Whole Blood 153 mg/dL (60-115)
[2024-06-12] MEDS: Melatonin 3 MG TABLET 6 MG PO (20:50)
[2024-06-13] VITALS: BP 131/63; PULSE 62; RESP 19; TEMP 37.2; O2SAT 98
[2024-06-13] MEDS: Heparin Sodium,Porcine 5,000 UNIT/ML VIAL 5000 UNIT SUBCUT ×2 (01:45→16:02)
[2024-06-13] MEDS: Linezolid 600 MG TABLET PO ×2 (01:45→16:03)
[2024-06-13 04:00] VITALS: BP 148/70; PULSE 61; RESP 18; TEMP 36.9; O2SAT 98
[2024-06-13] MEDS: Omeprazole 20 MG CAPSULE.DR PO (06:12)
[2024-06-13 07:19] VITALS: BP 163/74; PULSE 64; RESP 16; TEMP 36.8; O2SAT 100
[2024-06-13 07:38] LABS: Glucose, Whole Blood 104 mg/dL (60-115)
[2024-06-13] MEDS: SULFAMETHOXAZOLE IV ×2 (09:15→16:02)
[2024-06-13] MEDS: DEXTROSE 5% IV ×2 (09:15→16:02)
[2024-06-13] MEDS: TRIMETHOPRIM IV ×2 (09:15→16:02)
[2024-06-13] MEDS: Isosorbide Mononitrate 30 MG TAB.ER.24H PO (09:17)
[2024-06-13] MEDS: 0.9 % Sodium Chloride Flush 3 ML SYRINGE IVFLUSH ×3 (09:17→19:56)
[2024-06-13] MEDS: Magnesium Oxide 400 MG TABLET PO ×2 (09:17→19:55)
[2024-06-13] MEDS: predniSONE 2.5 MG TABLET 7.5 MG PO (09:17)
[2024-06-13] MEDS: Loperamide HCl 2 MG CAPSULE PO ×2 (09:19→16:03)
[2024-06-13] MEDS: Sodium Bicarbonate 650 MG TABLET 1300 MG PO ×2 (09:19→19:55)
[2024-06-13] MEDS: Multivitamin TABLET 1 TAB PO (09:19)
[2024-06-13] MEDS: Sucralfate 1 GM TABLET PO ×4 (09:19→19:55)
[2024-06-13] MEDS: carvediloL 25 MG TABLET PO ×2 (09:19→19:56)
[2024-06-13] MEDS: Sertraline HCL 25 MG TABLET PO (09:20)
[2024-06-13] MEDS: Acetaminophen 325 MG TABLET 650 MG PO (09:20)
[2024-06-13] MEDS: TACROLIMUS 1 MG 8 EACH PO (09:24)
[2024-06-13 11:07] VITALS: BP 147/90; PULSE 63; RESP 16; TEMP 37; O2SAT 100
[2024-06-13 11:17] LABS: Glucose, Whole Blood 170 mg/dL (60-115)
[2024-06-13] MEDS: Insulin Lispro 100 UNIT/ML 3 ML VIAL SUBCUT ×2 (11:51→22:38)
--- NOTE | 2024-06-13 15:27 | HO.PM.IMPN ---
Subjective Subjective Date of Service: 06/13/24 Interval History: Offers no acute complaints, tolerating diet no nausea no vomiting no abdominal pain no diarrhea, no fevers, no chills, no headache, no dizziness, no new weakness. Review of Systems All other symptoms reviewed and are negative. Physical Exam Vital Signs: Vital Signs: Last Vital Signs Temp 98.6 F 06/13/24 11:07 Pulse 63 06/13/24 11:07 Resp 16 06/13/24 11:07 BP 147/90 H 06/13/24 11:07 Pulse Ox 100 06/13/24 11:07 O2 Del Method Room Air 06/13/24 11:07 O2 Flow Rate 98 06/07/24 04:00 BMI result Body Mass Index 17.5 Const: Other: Gen: in no acute distress, muscle wasting HEENT: sclera anicteric, moist mucus membranes Neck: supple Lungs: port R subclavian, diminished breath sounds Heart: regular rate and rhythm, no murmurs Abd: soft, non-tender, non-distended Ext: no edema Skin: warm/well-perfused, multiple skin nodules Neuro: alert and oriented x3, LUE and LLE strength improving Psych: appropriate affect Objective Data Active Medications Acetaminophen (Acetaminophen 325 Mg Tablet) 650 mg PO Q6H PRN PRN Reason: Pain, Mild 1-3,fever,headache Last Admin: 06/13/24 09:20 Dose: 650 mg Documented By: RAMON Calcium Carbonate (Calcium Carbonate 750 Mg Tab.Chew) 750 mg PO Q4H PRN PRN Reason: Heartburn Carvedilol (Carvedilol 25 Mg Tablet) 25 mg PO BID [facility]; Protocol Last Admin: 06/13/24 09:19 Dose: 25 mg Documented By: RAMON Dextrose (Dextrose 50 % 25 Gm/50 Ml Syringe) 25 gm IVPUSH Q15M PRN; Protocol PRN Reason: per Hypoglycemia Standing Ord. Diphenhydramine HCl (Diphenhydramine Hcl 25 Mg Capsule) 25 mg PO BID PRN PRN Reason: itchiness Last Admin: 06/06/24 14:38 Dose: 25 mg Documented By: RASHEEDA Docusate Sodium (Docusate Sodium 100 Mg Capsule) 100 mg PO DAILY PRN PRN Reason: Constipation Epoetin Bassem-epbx (Epoetin Bassem-Epbx 20,000 Unit/Ml Vial) 20,000 unit SUBCUT MOWEFR [facility] Last Admin: 06/11/24 14:46 Dose: 20,000 unit Documented By: RAMON Glucose (Glucose Gel 15 Gm Gel..Gram.) 15 gm PO Q15M PRN; Protocol PRN Reason: per Hypoglycemia Standing Ord. Heparin Sodium (Porcine) (Heparin Sodium,Porcine 5,000 Unit/Ml Vial) 5,000 unit SUBCUT Q12H [facility] Last Admin: 06/13/24 01:45 Dose: 5,000 unit Documented By: DOMINIQUE Trimethoprim/Sulfamethoxazole (184 mg/ Dextrose) 511.5 mls @ 225 mls/hr IV Q8H [facility] Insulin Human Lispro (Insulin Lispro 100 Unit/Ml 3 Ml Vial) 0 unit SUBCUT QIDACHS [facility]; Protocol Last Admin: 06/13/24 11:51 Dose: 4 unit Documented By: RAMON Isosorbide Mononitrate (Isosorbide Mononitrate 30 Mg Tab.Er.24h) 30 mg PO DAILY [facility]; Protocol Last Admin: 06/13/24 09:17 Dose: 30 mg Documented By: RAMON Lidocaine HCl (Lidocaine Hcl 1 % Mpf 2 Ml Vial) 0.5 ml SUBCUT MOWEFR@1645 [facility] Last Admin: 06/11/24 16:19 Dose: Not Given Documented By: RAMON Non-Admin Reason: ALREADY DID HD Linezolid (Linezolid 600 Mg Tablet) 600 mg PO Q12H [facility] Last Admin: 06/13/24 01:45 Dose: 600 mg Documented By: DOMINIQUE Loperamide HCl (Loperamide Hcl 2 Mg Capsule) 2 mg PO Q4H PRN PRN Reason: diarrhea Last Admin: 06/13/24 09:19 Dose: 2 mg Documented By: RAMON Magnesium Hydroxide (Milk Of Magnesia 30 Ml Oral.Susp) 30 ml PO DAILY PRN PRN Reason: Constipation Magnesium Oxide (Magnesium Oxide 400 Mg Tablet) 400 mg PO BID [facility] Last Admin: 06/13/24 09:17 Dose: 400 mg Documented By: RAMON Melatonin (Melatonin 3 Mg Tablet) 6 mg PO BEDTIME PRN PRN Reason: Insomnia Last Admin: 06/12/24 20:50 Dose: 6 mg Documented By: DOMINIQUE Multivitamins/Vitamin C (Multivitamin Tablet) 1 tab PO DAILY [facility] Last Admin: 06/13/24 09:19 Dose: 1 tab Documented By: RAMON Non-Formulary Medication ( Tacrolimus 1 Mg Tablet Extended Release 24 Hr) 8 mg PO DAILY [facility] Last Admin: 06/13/24 09:24 Dose: 8 mg Documented By: RAMON Omeprazole (Omeprazole 20 Mg Capsule.Dr) 20 mg PO DAILY@0630 [facility] Last Admin: 06/13/24 06:12 Dose: 20 mg Documented By: DOMINIQUE Ondansetron HCl (Ondansetron Hcl 4 Mg/2 Ml Vial) 4 mg IVPUSH Q8H PRN PRN Reason: Nausea and Vomiting Last Admin: 06/11/24 06:21 Dose: 4 mg Documented By: JOANNA Polyethylene Glycol (Polyethylene Glycol 3350 17 Gm Powd.Pack) 17 gm PO DAILY PRN PRN Reason: Constipation Prednisone (Prednisone 2.5 Mg Tablet) 7.5 mg PO DAILY [facility] Last Admin: 06/13/24 09:17 Dose: 7.5 mg Documented By: RAMON Sertraline HCl (Sertraline Hcl 25 Mg Tablet) 25 mg PO DAILY [facility] Last Admin: 06/13/24 09:20 Dose: 25 mg Documented By: RAMON Sodium Bicarbonate (Sodium Bicarbonate 650 Mg Tablet) 1,300 mg PO BID [facility] Last Admin: 06/13/24 09:19 Dose: 1,300 mg Documented By: RAMON Sodium Chloride (0.9 % Sodium Chloride Flush 3 Ml Syringe) 3 ml IVFLUSH QSHIFT [facility] Last Admin: 06/13/24 11:51 Dose: 3 ml Documented By: RAMON Sucralfate (Sucralfate 1 Gm Tablet) 1 gm PO QIDACHS [facility] Last Admin: 06/13/24 11:51 Dose: 1 gm Documented By: RAMON Labs 06/06/24 06:10 06/07/24 07:54 Labs: Laboratory Results - last 24 hr 06/12/24 06/12/24 06/13/24 16:07 20:40 07:28 POC Glucose 249 H 153 H 104 06/13/24 11:14 POC Glucose 170 H Assessment and Plan (1) Disseminated nocardiosis: Status: Acute (2) Skin nodule: Status: Acute (3) Lung mass: Status: Acute (4) Brain mass: Status: Acute Plan 64yo F with ESRD on HD MWF with failed transplant, HTN, HLD, HFrEF, DM2, GERD, esophagitis presented with weakness, missed HD on 05/26, found to be febrile due to PNA developed LUE/LLE weakness concerning for stroke MRI showed peripherally enhancing nodules within the right thalamus, left parietal lobe and at the right temporo-occipital junction maybe secondary to metastatic disease or an inflammatory/infectious CT chest showed spiculated soft tissue masses both lungs largest in the right middle lobe laterally and posterior right upper lobe, necrotic appearing pleural based lesions right hemithorax; findings consistent with advanced malignancy; suspected right basilar loculated pleural abscess measuring up to 9 cm, smooth interlobular septal thickening right greater than left lungs with small layering pleural effusion findings consistent with super imposed pulmonary edema fluid from thigh nodule with Gram-positive filamentous bacteria ultimately likely has disseminated nocardiosis rather than metastatic cancer Possible disseminated nocardiosis [skin, lung, brain] - Micro sent out sample for Nocardia cultures/speciation/susceptibilities spoke with micro will take 3-5 days Spoke with ID she recommend to continue renally-dosed IV TMP-SMX and linezolid by mouth started on 06/03, for 6 weeks and possibly longer ,wait for final report prior to discharge - previously was on ceftriaxone + azithromycin 05/28-06/01, then vanco + piperacillin-tazobactam 06/01-06/03 - s/p dexamethasone [started for concern of cerebral edema fron brain mets] placed back on prednisone 7.5 mg/d - Pulm following - TTE with no vegetations - BCx x2 negative/persistent leukocytosis likely related to steroids anemia of ESRD - improved after transfused 1u pRBCs 05/29; FOBT negative; gave epo 57533 units 05/29 and continue epo MWF with HD hypoK - repleted hyperK - resolved after HD 05/28 ESRD on HD - continue HD MWF renal transplant - continue prednisone + tacrolimus chronic HFrEF - continue Imdur, carvedilol, volume management by dialysis GERD/esophagitis - PPI, sucralfate DM2 -blood sugars stable, on sliding scale insulin at home, continue malaika-dose lispro mood disorder - sertraline severe malnutrition - continue supplements stage II pressure injury sacrum - seen by wound nurse; continue foam dressing and protection from friction and moisture and protect bony prominences, high-protein diet. dispo - PT recommended home with services; need home infusion of TMP-SMX q8h via port; linezolid PO, PT recommend transfer patient in ambulance at discharge if goes home. Will need PICC line for IV antibiotics VTE ppx - heparin subQ 5000 q.12 hours In my clinical judgment, patient requires continued inpatient hospitalization for the following reasons: IV ABX and follow-up on final cultures. Quality Stroke Does the patient have a stroke diagnosis?: No VTE Prior VTE?: No VTE Risk Level:: Medical - moderate - high VTE Device Contraindication: N/A - Device Ordered VTE Drug Contraindication: N/A - Med Ordered
[2024-06-13 16:00] VITALS: BP 131/70; PULSE 63; RESP 12; TEMP 36.6; O2SAT 98
[2024-06-13 16:32] LABS: Glucose, Whole Blood 146 mg/dL (60-115)
[2024-06-13 18:58] VITALS: BP 149/71; PULSE 66; RESP 16; TEMP 36.6; O2SAT 99
[2024-06-13] MEDS: ondansetron HCL 4 MG/2 ML VIAL IVPUSH (19:55)
[2024-06-13] MEDS: Melatonin 3 MG TABLET 6 MG PO (19:55)
[2024-06-13 20:44] LABS: Glucose, Whole Blood 224 mg/dL (60-115)
[2024-06-14] VITALS (7 sets, daily range): BP systolic 127–162; BP diastolic 64–78; PULSE 63–74; RESP 17–18; TEMP 36.4–37.2; O2SAT 94–100
[2024-06-14] MEDS: Heparin Sodium,Porcine 5,000 UNIT/ML VIAL 5000 UNIT SUBCUT ×2 (01:01→16:33)
[2024-06-14] MEDS: SULFAMETHOXAZOLE IV ×3 (01:01→16:33)
[2024-06-14] MEDS: TRIMETHOPRIM IV ×3 (01:01→16:33)
[2024-06-14] MEDS: DEXTROSE 5% IV ×3 (01:01→16:33)
[2024-06-14] MEDS: Linezolid 600 MG TABLET PO ×2 (01:02→16:32)
[2024-06-14] MEDS: Sucralfate 1 GM TABLET PO ×4 (06:51→22:39)
[2024-06-14] MEDS: Omeprazole 20 MG CAPSULE.DR PO (06:51)
[2024-06-14 07:34] LABS: Glucose, Whole Blood 83 mg/dL (60-115)
[2024-06-14] MEDS: predniSONE 2.5 MG TABLET 7.5 MG PO (09:04)
[2024-06-14] MEDS: Acetaminophen 325 MG TABLET 650 MG PO (09:04)
[2024-06-14] MEDS: Sodium Bicarbonate 650 MG TABLET 1300 MG PO ×2 (09:04→22:39)
[2024-06-14] MEDS: Sertraline HCL 25 MG TABLET PO (09:04)
[2024-06-14] MEDS: carvediloL 25 MG TABLET PO ×2 (09:04→22:39)
[2024-06-14] MEDS: Loperamide HCl 2 MG CAPSULE PO (09:05)
[2024-06-14] MEDS: Isosorbide Mononitrate 30 MG TAB.ER.24H PO (09:05)
[2024-06-14] MEDS: Magnesium Oxide 400 MG TABLET PO ×2 (09:05→22:39)
[2024-06-14] MEDS: Multivitamin TABLET 1 TAB PO (09:05)
[2024-06-14] MEDS: TACROLIMUS 1 MG 8 EACH PO (09:08)
[2024-06-14] MEDS: 0.9 % Sodium Chloride Flush 3 ML SYRINGE IVFLUSH ×3 (09:08→22:43)
--- NOTE | 2024-06-14 09:34 | MHC.CM.PN ---
Addendum entered by Augusta Hutton RN 06/14/24 11:10: [facility]ING [facility]H[employer], CLARIFICATION PT'S SUNNY UNABLE TO STAY AND DECLINES TO HAVE [facility] MEET W/FAMILY AT HOME OR LATER THIS AFTERNOON, PLAN WILL BE FOR SUNNY AND ALFRED THE 4TH TO MEET [facility] AT BEDSIDE TOMORROW 06/15 AM AT 8AM AT BEDSIDE. Original Note: CM MET W/PT, PT'S ALFRED THE 3RD AND SONS SUNNY AND ALFRED THE 4TH, [id number] REPORTS HE IS CONFIDENT HE CAN DO THE IV ABX AT HOME HE HAS MIXED VACCINES HOWEVER DOES NOT HAVE A FLEXIBLE SCHEDULE FOR A TEACH AND WOULD LIKE A VIRTUAL TEACH ALTHOUGH HE WON'T BE THE PRIMARY PERSON TO BE GIVING PT HER IV ABX'S. PT'S AND SON ALFRED THE 3RD WILL BE IN TOMORROW MORNING AT 8AM FOR TEACH WITH [facility] AND PT'S WILL STAY OR COME BACK TO PT'S ROOM FOR TEACH TODAY AT 11AM CM ANTICIPATES ALFRED WILL NEED REINFORCEMENT OF TEACH. PT AND FAMILY AWARE THAT PT WILL NEED HER IV ABX'S 3XDAY NOT ONCE A WEEK PT HAD TOLD THEM. PT AND FAMILY ALSO AWARE IF ALFRED 4TH AND PT'S ALFRED THE 3RD ARE NOT HERE TOMORROW AM FOR TEACH OR UNSUCCESSFUL W/TEACH PT WILL NEED TO GO TO STR. CM WILL CONT TO FOLLOW DC NEEDS.
[2024-06-14 09:45] LABS: Hematocrit 24.2 % (37.0-47.0); Hemoglobin 7.7 g/dl (12.0-16.0); Mean Corpuscular HGB Conc 31.8 g/dl (31.0-35.0); Mean Corpuscular Hemoglobin 30.4 pg (27.0-33.0); Mean Corpuscular Volume 95.7 fL (80.0-98.0); Mean Platelet Volume 10.3 fL (9.4-12.3); NRBC Pct Auto 0.2 /100WBC (0.0-0.2); Red Blood Count 2.53 X10*6/uL (4.20-5.50); Red Cell Distribution Width 24.2 % (11.0-16.0); White Blood Count 8.3 X10*3/uL (4.8-10.8)
[2024-06-14 09:46] LABS: Platelet Count 89 X10*3/uL (160-400)
--- NOTE | 2024-06-14 10:11 | P.PNNP_ITS ---
Subjective Subjective Date of Service: 06/14/24 Interval history: Events noted Physical Exam 2 Vital Signs: Vital Signs: Last Vital Signs Temp 98.4 F 06/14/24 07:15 Pulse 63 06/14/24 07:15 Resp 18 06/14/24 07:15 BP 127/65 06/14/24 07:15 Pulse Ox 100 06/14/24 07:15 O2 Del Method Room Air 06/14/24 07:15 O2 Flow Rate 98 06/07/24 04:00 BMI result Body Mass Index 17.5 Const: General: no acute distress Orientation/consciousness: patient oriented x3 Eyes: EOM: EOMs intact bilaterally Neck: Neck: Yes supple Resp: Auscultation: diminished lung sounds Cardio: Rate: regular rate GI: Palpation (GI): Soft to palpation Neuro: General: patient oriented x3 and moves all extremities Objective Data Labs 06/15/24 14:34 06/15/24 14:34 Labs: Laboratory Results - last 24 hr 06/13/24 06/13/24 06/13/24 11:14 16:21 20:39 WBC RBC Hgb Hct MCV MCH MCHC RDW Plt Count MPV Absolute Nucleated RBC Nucleated RBC % (auto) POC Glucose 170 H 146 H 224 H 06/14/24 06/14/24 07:27 09:21 WBC 8.3 RBC 2.53 L D Hgb 7.7 L D Hct 24.2 L MCV 95.7 MCH 30.4 MCHC 31.8 RDW 24.2 H Plt Count 89 L D MPV 10.3 Absolute Nucleated RBC 0.020 H Nucleated RBC % (auto) 0.2 POC Glucose 83 Microbiology Microbiology Results: Microbiology 06/01/24 14:25 Thigh Right Fungal Identification - Preliminary No growth to date. 06/01/24 14:25 Thigh Right Gram Stain - Final 06/01/24 14:25 Thigh Right Routine Culture - Preliminary Gram positive ambreen 05/27/24 21:48 Blood - Venous Blood Culture - Final No growth after 5 days. 05/27/24 21:44 Blood - Venous Blood Culture - Final No growth after 5 days. Procedures Date of Service Date of Service: 06/23/24 Assessment & Plan Assessment and plan (1) ESRD (end stage renal disease) on dialysis: Status: Acute Plan Usually gets HD on MWF Getting dialyzed today Has a functioning AVF Low Na/K diet with fluid restriction Procrit 31992 MWF to keep Hb ~ 10 Getting treatment for Nocardiosis Continue rest of current management for now Time Spent With Patient Time: Total time managing care of this patient today ____ minutes. Progress Note: Quality Stroke Does the patient have a stroke diagnosis?: No
[2024-06-14 10:20] LABS: Blood Urea Nitrogen 38 mg/dL (9-16); Calcium 8.3 mg/dL (8.4-10.2); Creatinine Clr Calc Pharmacy 13.4; Estimated Glomerular Filt Rate 14; Glucose Random 87 mg/dL (60-115)
[2024-06-14 10:28] LABS: Anion Gap 15 (12-20); Carbon Dioxide 25 mmol/L (22-29); Chloride 95 mmol/L (96-108); Potassium 2.9 mmol/L (3.3-5.1); Sodium 132 mmol/L (135-145)
[2024-06-14] MEDS: Potassium Chloride Packet 20 MEQ PACKET 40 MEQ PO ×2 (11:03→16:32)
[2024-06-14 11:12] LABS: Glucose, Whole Blood 152 mg/dL (60-115)
[2024-06-14] MEDS: Insulin Lispro 100 UNIT/ML 3 ML VIAL SUBCUT (11:13)
[2024-06-14] MEDS: ondansetron HCL 4 MG/2 ML VIAL IVPUSH (11:42)
--- NOTE | 2024-06-14 13:22 | MHC.CLN ---
F/U PO INTAKE 75-100% DIET RX:2000DM, 2 GRAM SODIUM, LOW POTASSIUM CHOPPED-APPROPRIATE ENSURE CLEAR TID SUPPLEMENT APPROPRIATE TO PROMOTE WOUND HEALING SUPPLEMENT PROVIDES 720 KCALS, 24 G PROTEIN AND IS RENAL FRIENDLY SKIN WITH STAGE II TO COCCYX REMAINS MONITOR PO INTAKE AND ENCOURAGE SUPPLEMENT
--- NOTE | 2024-06-14 14:25 | P.PNIM_ITS ---
Subjective Subjective Date of Service: 06/14/24 Interval History: Being followed for left upper and lower extremity weakness Patient feeling better, offers no acute complaints left-sided weakness is improving denies nausea vomiting abdominal pain, no fevers, no chills, no acute events overnight, tolerating hemodialysis Family at bedside has no questions. Review of Systems All other system reviewed and are negative. Physical Exam 2 Vital Signs: Vital Signs: Last Vital Signs Temp 98.3 F 06/14/24 11:18 Pulse 63 06/14/24 11:18 Resp 17 06/14/24 11:18 BP 140/64 H 06/14/24 11:18 Pulse Ox 98 06/14/24 11:18 O2 Del Method Room Air 06/14/24 11:18 O2 Flow Rate 98 06/07/24 04:00 BMI result Body Mass Index 17.5 Const: Other: Gen: in no acute distress, muscle wasting HEENT: sclera anicteric, moist mucus membranes Neck: supple Lungs: port R subclavian, diminished breath sounds Heart: regular rate and rhythm, no murmurs Abd: soft, non-tender, non-distended Ext: no edema Skin: warm/well-perfused Neuro: alert and oriented x3, LUE and LLE strength improving Psych: appropriate affect Objective Data Active Medications Acetaminophen (Acetaminophen 325 Mg Tablet) 650 mg PO Q6H PRN PRN Reason: Pain, Mild 1-3,fever,headache Last Admin: 06/14/24 09:04 Dose: 650 mg Documented By: RAMON Calcium Carbonate (Calcium Carbonate 750 Mg Tab.Chew) 750 mg PO Q4H PRN PRN Reason: Heartburn Carvedilol (Carvedilol 25 Mg Tablet) 25 mg PO BID [facility]; Protocol Last Admin: 06/14/24 09:04 Dose: 25 mg Documented By: RAMON Dextrose (Dextrose 50 % 25 Gm/50 Ml Syringe) 25 gm IVPUSH Q15M PRN; Protocol PRN Reason: per Hypoglycemia Standing Ord. Diphenhydramine HCl (Diphenhydramine Hcl 25 Mg Capsule) 25 mg PO BID PRN PRN Reason: itchiness Last Admin: 06/06/24 14:38 Dose: 25 mg Documented By: RASHEEDA Docusate Sodium (Docusate Sodium 100 Mg Capsule) 100 mg PO DAILY PRN PRN Reason: Constipation Epoetin Bassem-epbx (Epoetin Bassem-Epbx 20,000 Unit/Ml Vial) 20,000 unit SUBCUT MoWeFr@1600 [facility] Glucose (Glucose Gel 15 Gm Gel..Gram.) 15 gm PO Q15M PRN; Protocol PRN Reason: per Hypoglycemia Standing Ord. Heparin Sodium (Porcine) (Heparin Sodium,Porcine 5,000 Unit/Ml Vial) 5,000 unit SUBCUT Q12H [facility] Last Admin: 06/14/24 01:01 Dose: 5,000 unit Documented By: JOANNA Trimethoprim/Sulfamethoxazole (184 mg/ Dextrose) 511.5 mls @ 225 mls/hr IV Q8H [facility] Last Infusion: 06/14/24 11:39 Dose: Infused Documented By: RAMON Insulin Human Lispro (Insulin Lispro 100 Unit/Ml 3 Ml Vial) 0 unit SUBCUT QIDACHS [facility]; Protocol Last Admin: 06/14/24 11:13 Dose: 4 unit Documented By: RAMON Isosorbide Mononitrate (Isosorbide Mononitrate 30 Mg Tab.Er.24h) 30 mg PO DAILY [facility]; Protocol Last Admin: 06/14/24 09:05 Dose: 30 mg Documented By: RAMON Lidocaine HCl (Lidocaine Hcl 1 % Mpf 2 Ml Vial) 0.5 ml SUBCUT MOWEFR@1645 [facility] Last Admin: 06/11/24 16:19 Dose: Not Given Documented By: RAMON Non-Admin Reason: ALREADY DID HD Linezolid (Linezolid 600 Mg Tablet) 600 mg PO Q12H [facility] Last Admin: 06/14/24 01:02 Dose: 600 mg Documented By: JOANNA Loperamide HCl (Loperamide Hcl 2 Mg Capsule) 2 mg PO Q4H PRN PRN Reason: diarrhea Last Admin: 06/14/24 09:05 Dose: 2 mg Documented By: RAMON Magnesium Hydroxide (Milk Of Magnesia 30 Ml Oral.Susp) 30 ml PO DAILY PRN PRN Reason: Constipation Magnesium Oxide (Magnesium Oxide 400 Mg Tablet) 400 mg PO BID [facility] Last Admin: 06/14/24 09:05 Dose: 400 mg Documented By: RAMON Melatonin (Melatonin 3 Mg Tablet) 6 mg PO BEDTIME PRN PRN Reason: Insomnia Last Admin: 06/13/24 19:55 Dose: 6 mg Documented By: JOANNA Multivitamins/Vitamin C (Multivitamin Tablet) 1 tab PO DAILY [facility] Last Admin: 06/14/24 09:05 Dose: 1 tab Documented By: RAMON Non-Formulary Medication ( Tacrolimus 1 Mg Tablet Extended Release 24 Hr) 8 mg PO DAILY [facility] Last Admin: 06/14/24 09:08 Dose: 8 mg Documented By: RAMON Omeprazole (Omeprazole 20 Mg Capsule.) 20 mg PO DAILY@0630 [facility] Last Admin: 06/14/24 06:51 Dose: 20 mg Documented By: JOANNA Ondansetron HCl (Ondansetron Hcl 4 Mg/2 Ml Vial) 4 mg IVPUSH Q8H PRN PRN Reason: Nausea and Vomiting Last Admin: 06/14/24 11:42 Dose: 4 mg Documented By: RAMON Polyethylene Glycol (Polyethylene Glycol 3350 17 Gm Powd.Pack) 17 gm PO DAILY PRN PRN Reason: Constipation Potassium Chloride (Potassium Chloride Packet 20 Meq Packet) 40 meq PO Q4H [facility] Stop: 06/14/24 14:46 Last Admin: 06/14/24 11:03 Dose: 40 meq Documented By: RAMON Prednisone (Prednisone 2.5 Mg Tablet) 7.5 mg PO DAILY [facility] Last Admin: 06/14/24 09:04 Dose: 7.5 mg Documented By: RAMON Sertraline HCl (Sertraline Hcl 25 Mg Tablet) 25 mg PO DAILY [facility] Last Admin: 06/14/24 09:04 Dose: 25 mg Documented By: RAMON Sodium Bicarbonate (Sodium Bicarbonate 650 Mg Tablet) 1,300 mg PO BID [facility] Last Admin: 06/14/24 09:04 Dose: 1,300 mg Documented By: RAMON Sodium Chloride (0.9 % Sodium Chloride Flush 3 Ml Syringe) 3 ml IVFLUSH QSHIFT [facility] Last Admin: 06/14/24 09:08 Dose: 3 ml Documented By: RAMON Sucralfate (Sucralfate 1 Gm Tablet) 1 gm PO QIDACHS [facility] Last Admin: 06/14/24 11:03 Dose: 1 gm Documented By: RAMON Labs 06/14/24 09:21 06/14/24 09:21 Labs: Laboratory Results - last 24 hr 06/13/24 06/13/24 06/14/24 16:21 20:39 07:27 MCV MCH MCHC RDW Plt Count MPV Absolute Nucleated RBC Nucleated RBC % (auto) Anion Gap Estim Creat Clear Calc Estimated GFR POC Glucose 146 H 224 H 83 Random Glucose Calcium 06/14/24 06/14/24 09:21 11:07 MCV 95.7 MCH 30.4 MCHC 31.8 RDW 24.2 H Plt Count 89 L D MPV 10.3 Absolute Nucleated RBC 0.020 H Nucleated RBC % (auto) 0.2 Anion Gap 15 Estim Creat Clear Calc 13.4 Estimated GFR 14 POC Glucose 152 H Random Glucose 87 Calcium 8.3 L Microbiology Microbiology Results: Microbiology 06/01/24 14:25 Fungal Identification - Preliminary Thigh Right No growth after 1 week. Assessment and Plan (1) Disseminated nocardiosis: Status: Acute (2) Skin nodule: Status: Acute (3) Lung mass: Status: Acute (4) Brain mass: Status: Acute (5) Mass of lung parenchyma: Status: Acute Plan 64yo F with ESRD on HD MWF with failed transplant, HTN, HLD, HFrEF, DM2, GERD, esophagitis presented with weakness, missed HD on 05/26, found to be febrile due to PNA developed LUE/LLE weakness concerning for stroke MRI showed peripherally enhancing nodules within the right thalamus, left parietal lobe and at the right temporo-occipital junction maybe secondary to metastatic disease or an inflammatory/infectious CT chest showed spiculated soft tissue masses both lungs largest in the right middle lobe laterally and posterior right upper lobe, necrotic appearing pleural based lesions right hemithorax; findings consistent with advanced malignancy; suspected right basilar loculated pleural abscess measuring up to 9 cm, smooth interlobular septal thickening right greater than left lungs with small layering pleural effusion findings consistent with super imposed pulmonary edema fluid from thigh nodule with Gram-positive filamentous bacteria ultimately likely has disseminated nocardiosis rather than metastatic cancer Possible disseminated nocardiosis [skin, lung, brain] - Micro sent out sample for Nocardia cultures/speciation/susceptibilities spoke with micro report not back Spoke with ID she recommend to continue renally-dosed IV TMP-SMX and linezolid by mouth started on 06/03, for 6 weeks and possibly longer ,wait for final report prior to discharge - previously was on ceftriaxone + azithromycin 05/28-06/01, then vanco + piperacillin-tazobactam 06/01-06/03 - s/p dexamethasone [started for concern of cerebral edema fron brain mets] placed back on prednisone 7.5 mg/d - Pulm following - TTE with no vegetations - BCx x2 negative/persistent leukocytosis likely related to steroids anemia of ESRD - improved after transfused 1u pRBCs 05/29; FOBT negative; gave epo 26075 units 05/29 and continue epo MWF with HD, repeat hematocrit dropped to 24.2 today follow CBC and transfuse as needed hypoK - recurrent potassium 2.9, will replete and follow labs hyperK - resolved after HD 05/28 ESRD on HD - continue HD MWF renal transplant - continue prednisone + tacrolimus chronic HFrEF - continue Imdur, carvedilol, volume management by dialysis GERD/esophagitis - PPI, sucralfate DM2 -blood sugars stable, on sliding scale insulin at home, continue malaika-dose lispro mood disorder - sertraline severe malnutrition - continue supplements stage II pressure injury sacrum - seen by wound nurse; continue foam dressing and protection from friction and moisture and protect bony prominences, high- protein diet. dispo - PT recommended home with services; need home infusion of TMP-SMX q8h via port; linezolid PO, PT recommend transfer patient in ambulance at discharge if goes home. Will need PICC line for IV antibiotics waiting for final report of wound culture VTE ppx - heparin subQ 5000 q.12 hours In my clinical judgment, patient requires continued inpatient hospitalization for the following reasons: IV ABX and follow-up on final cultures. Quality Stroke Does the patient have a stroke diagnosis?: No VTE Prior VTE?: No VTE Risk Level:: Medical - moderate - high VTE Device Contraindication: N/A - Device Ordered VTE Drug Contraindication: N/A - Med Ordered
[2024-06-14 16:23] LABS: Glucose, Whole Blood 101 mg/dL (60-115)
[2024-06-14 21:26] LABS: Glucose, Whole Blood 152 mg/dL (60-115)
[2024-06-14] MEDS: Melatonin 3 MG TABLET 6 MG PO (22:39)
[2024-06-14 22:48] LABS: Glucose, Whole Blood 116 mg/dL (60-115)
[2024-06-15] VITALS (7 sets, daily range): BP systolic 107–162; BP diastolic 49–72; PULSE 65–70; RESP 14–20; TEMP 36.7–37.1; O2SAT 99–100
[2024-06-15] MEDS: DEXTROSE 5% IV ×3 (02:00→16:35)
[2024-06-15] MEDS: SULFAMETHOXAZOLE IV ×3 (02:00→16:35)
[2024-06-15] MEDS: TRIMETHOPRIM IV ×3 (02:00→16:35)
[2024-06-15] MEDS: Heparin Sodium,Porcine 5,000 UNIT/ML VIAL 5000 UNIT SUBCUT ×2 (02:00→14:06)
[2024-06-15] MEDS: Linezolid 600 MG TABLET PO ×2 (02:01→14:06)
[2024-06-15] MEDS: Omeprazole 20 MG CAPSULE.DR PO (05:06)
[2024-06-15 08:08] LABS: Glucose, Whole Blood 104 mg/dL (60-115)
[2024-06-15] MEDS: TACROLIMUS 1 MG 8 EACH PO (09:40)
[2024-06-15] MEDS: Magnesium Oxide 400 MG TABLET PO ×2 (09:41→21:22)
[2024-06-15] MEDS: Isosorbide Mononitrate 30 MG TAB.ER.24H PO (09:41)
[2024-06-15] MEDS: carvediloL 25 MG TABLET PO ×2 (09:41→21:23)
[2024-06-15] MEDS: Multivitamin TABLET 1 TAB PO (09:41)
[2024-06-15] MEDS: Sodium Bicarbonate 650 MG TABLET 1300 MG PO ×2 (09:41→21:22)
[2024-06-15] MEDS: predniSONE 2.5 MG TABLET 7.5 MG PO (09:41)
[2024-06-15] MEDS: Sucralfate 1 GM TABLET PO ×3 (09:42→21:22)
[2024-06-15] MEDS: Sertraline HCL 25 MG TABLET PO (09:42)
[2024-06-15] MEDS: 0.9 % Sodium Chloride Flush 3 ML SYRINGE IVFLUSH ×3 (09:45→21:23)
[2024-06-15 11:26] LABS: Glucose, Whole Blood 169 mg/dL (60-115)
[2024-06-15] MEDS: ondansetron HCL 4 MG/2 ML VIAL IVPUSH ×2 (11:34→18:38)
[2024-06-15] MEDS: Insulin Lispro 100 UNIT/ML 3 ML VIAL SUBCUT ×3 (11:34→21:22)
--- NOTE | 2024-06-15 14:13 | HO.PM.IMPN ---
Subjective Subjective Date of Service: 06/15/24 Interval History: Being followed for brain/pulmonary and skin lesion concerning for nocardia Offers no acute complaints, tolerating diet, no fevers, no chills No acute events overnight. Review of Systems All other system reviewed and are negative. Physical Exam Vital Signs: Vital Signs: Last Vital Signs Temp 98.1 F 06/15/24 08:00 Pulse 65 06/15/24 13:43 Resp 19 06/15/24 08:00 BP 107/49 L 06/15/24 13:43 Pulse Ox 100 06/15/24 13:43 O2 Del Method Room Air 06/15/24 08:00 O2 Flow Rate 98 06/07/24 04:00 BMI result Body Mass Index 17.5 Const: Other: Gen: in no acute distress, muscle wasting HEENT: sclera anicteric, moist mucus membranes Neck: supple Lungs: port R subclavian, diminished breath sounds Heart: regular rate and rhythm, no murmurs Abd: soft, non-tender, non-distended Ext: no edema Skin: warm/well-perfused Neuro: alert and oriented x3, LUE and LLE strength improving Psych: appropriate affect Objective Data Active Medications Acetaminophen (Acetaminophen 325 Mg Tablet) 650 mg PO Q6H PRN PRN Reason: Pain, Mild 1-3,fever,headache Last Admin: 06/14/24 09:04 Dose: 650 mg Documented By: RAMON Calcium Carbonate (Calcium Carbonate 750 Mg Tab.Chew) 750 mg PO Q4H PRN PRN Reason: Heartburn Carvedilol (Carvedilol 25 Mg Tablet) 25 mg PO BID LIVIER; Protocol Last Admin: 06/15/24 09:41 Dose: 25 mg Documented By: PRISCILACICHRISTOPHER Dextrose (Dextrose 50 % 25 Gm/50 Ml Syringe) 25 gm IVPUSH Q15M PRN; Protocol PRN Reason: per Hypoglycemia Standing Ord. Diphenhydramine HCl (Diphenhydramine Hcl 25 Mg Capsule) 25 mg PO BID PRN PRN Reason: itchiness Last Admin: 06/06/24 14:38 Dose: 25 mg Documented By: LUCINAMACira Docusate Sodium (Docusate Sodium 100 Mg Capsule) 100 mg PO DAILY PRN PRN Reason: Constipation Epoetin Bassem-epbx (Epoetin Bassem-Epbx 20,000 Unit/Ml Vial) 20,000 unit SUBCUT MoWeFr@1600 [facility] Last Admin: 06/14/24 16:34 Dose: 20,000 unit Documented By: RAMON Glucose (Glucose Gel 15 Gm Gel..Gram.) 15 gm PO Q15M PRN; Protocol PRN Reason: per Hypoglycemia Standing Ord. Heparin Sodium (Porcine) (Heparin Sodium,Porcine 5,000 Unit/Ml Vial) 5,000 unit SUBCUT Q12H [facility] Last Admin: 06/15/24 14:06 Dose: 5,000 unit Documented By: ELLIS Trimethoprim/Sulfamethoxazole (184 mg/ Dextrose) 511.5 mls @ 225 mls/hr IV Q8H [facility] Last Infusion: 06/15/24 11:39 Dose: Infused Documented By: ELLIS Insulin Human Lispro (Insulin Lispro 100 Unit/Ml 3 Ml Vial) 0 unit SUBCUT QIDACHS [facility]; Protocol Last Admin: 06/15/24 11:34 Dose: 2 unit Documented By: ELLIS Isosorbide Mononitrate (Isosorbide Mononitrate 30 Mg Tab.Er.24h) 30 mg PO DAILY [facility]; Protocol Last Admin: 06/15/24 09:41 Dose: 30 mg Documented By: ELLIS Lidocaine HCl (Lidocaine Hcl 1 % Mpf 2 Ml Vial) 0.5 ml SUBCUT MOWEFR@1645 [facility] Last Admin: 06/14/24 16:36 Dose: Not Given Documented By: RAMON Non-Admin Reason: not necessary Linezolid (Linezolid 600 Mg Tablet) 600 mg PO Q12H [facility] Last Admin: 06/15/24 14:06 Dose: 600 mg Documented By: ELLIS Loperamide HCl (Loperamide Hcl 2 Mg Capsule) 2 mg PO Q4H PRN PRN Reason: diarrhea Last Admin: 06/14/24 09:05 Dose: 2 mg Documented By: RAMON Magnesium Hydroxide (Milk Of Magnesia 30 Ml Oral.Susp) 30 ml PO DAILY PRN PRN Reason: Constipation Magnesium Oxide (Magnesium Oxide 400 Mg Tablet) 400 mg PO BID [facility] Last Admin: 06/15/24 09:41 Dose: 400 mg Documented By: ELLIS Melatonin (Melatonin 3 Mg Tablet) 6 mg PO BEDTIME PRN PRN Reason: Insomnia Last Admin: 06/14/24 22:39 Dose: 6 mg Documented By: ERROL Multivitamins/Vitamin C (Multivitamin Tablet) 1 tab PO DAILY [facility] Last Admin: 06/15/24 09:41 Dose: 1 tab Documented By: ELLIS Non-Formulary Medication ( Tacrolimus 1 Mg Tablet Extended Release 24 Hr) 8 mg PO DAILY [facility] Last Admin: 06/15/24 09:40 Dose: 8 mg Documented By: ELLIS Omeprazole (Omeprazole 20 Mg Capsule.) 20 mg PO DAILY@0630 [facility] Last Admin: 06/15/24 05:06 Dose: 20 mg Documented By: JENNIFER Ondansetron HCl (Ondansetron Hcl 4 Mg/2 Ml Vial) 4 mg IVPUSH Q8H PRN PRN Reason: Nausea and Vomiting Last Admin: 06/15/24 11:34 Dose: 4 mg Documented By: ELLIS Polyethylene Glycol (Polyethylene Glycol 3350 17 Gm Powd.Pack) 17 gm PO DAILY PRN PRN Reason: Constipation Prednisone (Prednisone 2.5 Mg Tablet) 7.5 mg PO DAILY [facility] Last Admin: 06/15/24 09:41 Dose: 7.5 mg Documented By: ELLIS Sertraline HCl (Sertraline Hcl 25 Mg Tablet) 25 mg PO DAILY [facility] Last Admin: 06/15/24 09:42 Dose: 25 mg Documented By: ELLIS Sodium Bicarbonate (Sodium Bicarbonate 650 Mg Tablet) 1,300 mg PO BID [facility] Last Admin: 06/15/24 09:41 Dose: 1,300 mg Documented By: ELLIS Sodium Chloride (0.9 % Sodium Chloride Flush 3 Ml Syringe) 3 ml IVFLUSH QSHIFT [facility] Last Admin: 06/15/24 09:45 Dose: 3 ml Documented By: ELLIS Sucralfate (Sucralfate 1 Gm Tablet) 1 gm PO QIDACHS [facility] Last Admin: 06/15/24 13:14 Dose: Not Given Documented By: ELLIS Non-Admin Reason: pt having N/V at this time. cannot tolerate Labs 06/14/24 09:21 06/14/24 09:21 Labs: Laboratory Results - last 24 hr 06/14/24 06/14/24 06/14/24 16:20 21:11 22:43 POC Glucose 101 152 H 116 H 06/15/24 06/15/24 08:04 11:06 POC Glucose 104 169 H Microbiology Microbiology Results: Microbiology 06/01/24 14:25 Fungal Identification - Preliminary Thigh Right No growth after 1 week. Assessment and Plan (1) Disseminated nocardiosis: Status: Acute (2) Skin nodule: Status: Acute (3) Lung mass: Status: Acute (4) Brain mass: Status: Acute Plan 64yo F with ESRD on HD MWF with failed transplant, HTN, HLD, HFrEF, DM2, GERD, esophagitis presented with weakness, missed HD on 05/26, found to be febrile due to PNA developed LUE/LLE weakness concerning for stroke MRI showed peripherally enhancing nodules within the right thalamus, left parietal lobe and at the right temporo-occipital junction maybe secondary to metastatic disease or an inflammatory/infectious CT chest showed spiculated soft tissue masses both lungs largest in the right middle lobe laterally and posterior right upper lobe, necrotic appearing pleural based lesions right hemithorax; findings consistent with advanced malignancy; suspected right basilar loculated pleural abscess measuring up to 9 cm, smooth interlobular septal thickening right greater than left lungs with small layering pleural effusion findings consistent with super imposed pulmonary edema fluid from thigh nodule with Gram-positive filamentous bacteria ultimately likely has disseminated nocardiosis rather than metastatic cancer Possible disseminated nocardiosis [skin, lung, brain] - Micro sent out sample for Nocardia cultures/speciation/susceptibilities spoke with micro report not back Spoke with ID she recommend to continue renally-dosed IV TMP-SMX and linezolid by mouth started on 06/03, for 6 weeks and possibly longer ,wait for final report - previously was on ceftriaxone + azithromycin 05/28-06/01, then vanco + piperacillin-tazobactam 06/01-06/03 - s/p dexamethasone [started for concern of cerebral edema fron brain mets] placed back on prednisone 7.5 mg/d - Pulm following - TTE with no vegetations - BCx x2 negative/persistent leukocytosis likely related to steroids -will discuss with Nephrology if PermCath can be use for IV antibiotic use otherwise will place PICC line anemia of ESRD - improved after transfused 1u pRBCs 05/29; FOBT negative; gave epo 20527 units 05/29 and continue epo MWF with HD, repeat hematocrit dropped to 24.2 follow CBC and transfuse as needed hypoK - recurrent potassium 2.9, replete and follow labs hyperK - resolved after HD 05/28 ESRD on HD - continue HD MWF renal transplant - continue prednisone + tacrolimus chronic HFrEF - continue Imdur, carvedilol, volume management by dialysis GERD/esophagitis - PPI, sucralfate DM2 -blood sugars stable, on sliding scale insulin at home, continue malaika-dose lispro mood disorder - sertraline severe malnutrition - continue supplements stage II pressure injury sacrum - seen by wound nurse; continue foam dressing and protection from friction and moisture and protect bony prominences, high-protein diet. dispo - PT recommended home with services; need home infusion of TMP-SMX q8h via port; linezolid PO, PT recommend transfer patient in ambulance at discharge if goes home. Will need PICC line for IV antibiotics waiting for final report of wound culture VTE ppx - heparin subQ 5000 q.12 hours In my clinical judgment, patient requires continued inpatient hospitalization for the following reasons: IV ABX and follow-up on final cultures. Quality Stroke Does the patient have a stroke diagnosis?: No VTE Prior VTE?: No VTE Risk Level:: Medical - moderate - high VTE Device Contraindication: N/A - Device Ordered VTE Drug Contraindication: N/A - Med Ordered
--- NOTE | 2024-06-15 14:19 | MHC.CM.PN ---
IMM 06/15/24, PT'S AND ONE SON WERE IN FOR TEACH W/REPETITION THIS AM, PLAN INITIALLY FOR PT TO DC LATER TODAY AFTER 5PM DOSE OF IV BACTRIM W/[facility] AND [facility] OF [facility] FOR SN/OT/PT AND OUTPT HD MWF AT [facility]. CM AWAITING CXR TO CONFIRM PLACEMENT OF PERMACATH HOWEVER HOSPITALIST WILL CONFIRM W/NEPHRO THAT PT CAN USE PERMACATH FOR SENIOR CARE IV BACTRIM. [facility] REPORTING PT IS ACTIVE W/SN/OT/PT HOWEVER ONLY HAD ONE VISIT AND WILL NEED F2F TO ADD IV ABX MANAGEMENT.
[2024-06-15 15:02] LABS: Hematocrit 25.4 % (37.0-47.0); Hemoglobin 7.7 g/dl (12.0-16.0)
[2024-06-15 15:06] LABS: Glucose, Whole Blood 154 mg/dL (60-115)
[2024-06-15 15:25] LABS: Potassium 4.3 mmol/L (3.3-5.1)
[2024-06-15 20:54] LABS: Glucose, Whole Blood 163 mg/dL (60-115)
[2024-06-16] MEDS: SULFAMETHOXAZOLE IV ×3 (01:25→17:10)
[2024-06-16] MEDS: DEXTROSE 5% IV ×3 (01:25→17:10)
[2024-06-16] MEDS: TRIMETHOPRIM IV ×3 (01:25→17:10)
[2024-06-16] MEDS: Heparin Sodium,Porcine 5,000 UNIT/ML VIAL 5000 UNIT SUBCUT (01:26)
[2024-06-16] MEDS: Linezolid 600 MG TABLET PO (01:26)
[2024-06-16 03:23] VITALS: BP 158/73; PULSE 65; RESP 20; TEMP 36.1; O2SAT 99
[2024-06-16] MEDS: ondansetron HCL 4 MG/2 ML VIAL IVPUSH (03:34)
[2024-06-16] MEDS: Sucralfate 1 GM TABLET PO ×3 (06:06→17:08)
[2024-06-16] MEDS: Omeprazole 20 MG CAPSULE.DR PO (06:06)
[2024-06-16 06:52] LABS: Glucose, Whole Blood 89 mg/dL (60-115)
[2024-06-16 07:03] VITALS: BP 151/68; PULSE 66; RESP 18; TEMP 36.6; O2SAT 100
[2024-06-16] MEDS: predniSONE 2.5 MG TABLET 7.5 MG PO (08:22)
[2024-06-16] MEDS: TACROLIMUS 1 MG 8 EACH PO (08:22)
[2024-06-16] MEDS: Magnesium Oxide 400 MG TABLET PO (08:23)
[2024-06-16] MEDS: Isosorbide Mononitrate 30 MG TAB.ER.24H PO (08:23)
[2024-06-16] MEDS: carvediloL 25 MG TABLET PO (08:23)
[2024-06-16] MEDS: Sodium Bicarbonate 650 MG TABLET 1300 MG PO (08:23)
[2024-06-16] MEDS: Multivitamin TABLET 1 TAB PO (08:24)
[2024-06-16] MEDS: 0.9 % Sodium Chloride Flush 3 ML SYRINGE IVFLUSH (08:24)
[2024-06-16] MEDS: Sertraline HCL 25 MG TABLET PO (08:24)
[2024-06-16 10:47] LABS: Glucose, Whole Blood 153 mg/dL (60-115)
[2024-06-16] MEDS: Insulin Lispro 100 UNIT/ML 3 ML VIAL SUBCUT (11:28)
--- NOTE | 2024-06-16 11:33 | MHC.CM.PN ---
PLAN FOR PT TO BE MEDICALLY CLEARED FOR DC HOME W/[facility] FOR [facility]IM [facility] FOR SN[facility]PT, [facility] WILL BE AT PT;S HOME TOMORROW MORNING AT 9AM FOR SOC, ANTIC PT'S FOR TRANSPORT LATER TODAY AFTER DIALYSIS AND NEXT DOSE OF IV ABX.
--- NOTE | 2024-06-16 12:10 | MHC.CLN ---
F/U PO INTAKE 50-100% DIET RX:2000DM, 2 GRAM SODIUM, CHOPPED-APPROPRIATE ENSURE CLEAR TID SUPPLEMENT APPROPRIATE TO PROMOTE WOUND HEALING SUPPLEMENT PROVIDES 720 KCALS, 24 G PROTEIN AND IS RENAL FRIENDLY MONITOR PO INTAKE AND ENCOURAGE SUPPLEMENT
--- NOTE | 2024-06-16 13:19 | P.PNNP_ITS ---
Subjective Subjective Date of Service: 06/16/24 Interval history: No acute events overnight. On HD now; Has a port a cath Physical Exam 2 Vital Signs: Vital Signs: Last Vital Signs Temp 97.8 F 06/16/24 07:03 Pulse 66 06/16/24 07:03 Resp 18 06/16/24 07:03 BP 151/68 H 06/16/24 07:03 Pulse Ox 100 06/16/24 07:03 O2 Del Method Room Air 06/16/24 07:03 O2 Flow Rate 98 06/07/24 04:00 BMI result Body Mass Index 17.5 Const: General: comfortable and no acute distress O rientation/consciousness: patient oriented x3 HEENT: Head: Yes normocephalic Mouth: Normal oral and palatal mucosa present Eyes: EOM: EOMs intact bilaterally Neck: Neck: Yes supple Resp: Auscultation: diminished lung sounds Cardio: Jugular venous distension: no JVD Rate: regular rate GI: Palpation (GI): Soft to palpation Auscultation: normal bowel sounds : General: Yes no CVA tenderness Back/Spine/Pelvis: Back: no CVA tenderness Skin: General skin exam: no rashes or lesions noted Neuro: General: patient oriented x3 and moves all extremities Extrem: General: Yes no pedal edema Objective Data Labs 06/15/24 14:34 06/15/24 14:34 Labs: Laboratory Results - last 24 hr 06/15/24 06/15/24 06/15/24 14:34 15:01 20:48 Hgb 7.7 L Hct 25.4 L Potassium 4.3 D POC Glucose 154 H 163 H 06/16/24 06/16/24 06:48 10:43 Hgb Hct Potassium POC Glucose 89 153 H Microbiology Microbiology Results: Microbiology 06/01/24 14:25 Thigh Right Fungal Identification - Preliminary No growth after 1 week. 06/01/24 14:25 Thigh Right Gram Stain - Final 06/01/24 14:25 Thigh Right Routine Culture - Preliminary Gram positive ambreen 05/27/24 21:48 Blood - Venous Blood Culture - Final No growth after 5 days. 05/27/24 21:44 Blood - Venous Blood Culture - Final No growth after 5 days. Procedures Date of Service Date of Service: 06/16/24 Assessment & Plan Assessment and plan (1) Disseminated nocardiosis: Status: Acute (2) ESRD (end stage renal disease) on dialysis: Status: Acute Plan Usually gets HD on MWF Getting dialyzed now Has a functioning AVF Low Na/K diet with fluid restriction Procrit 71574 MWF to keep Hb ~ 10 Getting treatment for Nocardiosis Has a Nadege Cath for home antibiotics Continue rest of current management for now Time Spent With Patient Time: . Progress Note: Quality Stroke Does the patient have a stroke diagnosis?: No
--- NOTE | 2024-06-16 14:48 | W.MHC.F2F ---
Service Date Service Date: 06/16/24 Encounter Date of encounter: 06/16/24 Reasons for Services Signs and symptoms assessed: end-stage renal disease on hemodialysis/ malnutrition / unsteady gait/ stage II sacral pressure wound/ left upper and lower extremity weakness improving Reason for prison: wound care and medication management Reason for physical therapy: home safety and mobility Homebound: Leaving the home is medically contraindicated at this time without the asist of a device and/or another person due th the listed conditions above and below. Reason homebound: unsteady gait / fall risk and weakness related to hospital stay Certification: Based on the above findings, I certify that this patient is confined to the home and needs intermittent prison care, physical therapy and/or speech therapy, or continues to need occupational therapy. The patient is under my care, and I have initiated the establishment of the plan of care. The patient will be followed by a physician who will periodically review the plan of care. Time Spent With Patient Time: Total time managing care of this patient today ____ minutes.
--- NOTE | 2024-06-16 17:35 | PC.NURSE ---
pts family asking about port
--- NOTE | 2024-06-16 17:36 | PC.NURSE ---
pt confirmed to d/c after admin of IV ABX by this RN. family inquiring about if port should be de-accessed by this RN and re- accessed by home care nurse tomorrow AM. Dr. Barba notified, stated to confirm with nursing phosphoric acid supervisor. Per Mirian Stewart RN, port is to stay accessed upon d/c as family will be administering ABX at 0100 06/17.
[2024-06-16 17:50] LABS: Glucose, Whole Blood 129 mg/dL (60-115)
[2024-06-16 18:30] VITALS: BP 147/67; PULSE 72; RESP 19; TEMP 36.7; O2SAT 100
--- NOTE | 2024-06-20 10:12 | MHC.CM.PN ---
Patients spouse came to [facility] requesting assistance with supplies for IV home infusion. He stated that they received 12 sets of IV tubing. They have used all of them. .T/w spoke with [facility] pharmacist, Javier as well as [facility] triage nurse Temi. The IV tubing is planned to be used for 3 doses of medication. The spouse said that he was instructed to dispose of tubing with used IV ABX bag once, then toss. The plan was 3 doses/24 hours for one set of the IV tubing. [facility] was able to provide gravity flow tubing to the spouse. [facility] care will send tubing out today. [facility] may send a nurse and with IV tubing. Mr Sharp was instructed to call [facility] if additional problems occur with supplies. He was instructed to return to [facility] if he needs assistance as well.
== END 2024-06-16 14:45 | disposition home health service (06) | DRG 867 ==
LOC: HO.ED 21:37 → HO.EDOVER 05-28 02:23 → HO.IMC 05-28 11:47
PROVIDERS: Family Medicine; Hospitalist; Physician Assistant; Admitting Provider Internal Medicine; Emergency Provider Emergency Medicine; PCP Family Medicine; Visit Provider Hospitalist
DX: A43.8 Other forms of nocardiosis (principal); E43 Unspecified severe protein-calorie malnutrition; G92.8 Other toxic encephalopathy; J18.9 Pneumonia, unspecified organism; N18.6 End stage renal disease; J85.0 Gangrene and necrosis of lung; I13.2 Hypertensive heart and chronic kidney disease with heart failure and with stage 5 chronic kidney disease, or end stage renal disease; C79.31 Secondary malignant neoplasm of brain; Z94.0 Kidney transplant status; Z68.1 Body mass index [BMI] 19.9 or less, adult; C34.2 Malignant neoplasm of middle lobe, bronchus or lung; L02.415 Cutaneous abscess of right lower limb; I50.22 Chronic systolic (congestive) heart failure; D84.821 Immunodeficiency due to drugs; K21.00 Gastro-esophageal reflux disease with esophagitis, without bleeding; E87.5 Hyperkalemia; D63.1 Anemia in chronic kidney disease; L89.152 Pressure ulcer of sacral region, stage 2; F39 Unspecified mood [affective] disorder; E87.6 Hypokalemia; E11.22 Type 2 diabetes mellitus with diabetic chronic kidney disease; Z99.2 Dependence on renal dialysis; Z20.822 Contact with and (suspected) exposure to COVID-19; Z91.158 Patient's noncompliance with renal dialysis for other reason; Z79.4 Long term (current) use of insulin; Z79.52 Long term (current) use of systemic steroids; Z79.621 Long term (current) use of calcineurin inhibitor; Z79.899 Other long term (current) drug therapy
CPT/HCPCS: 0241U; 36415; 70450; 70553; 71045; 71260; 80048; 80053; 80202; 81001; 82272; 82607; 82728; 82746; 82784; 82947; 83540; 83605; 83615; 83690; 83735; 84100; 84132; 84145; 84484; 85014; 85018; 85025; 85027; 85045; 85048; 85610; 86021; 86140; 86403; 86803; 86850; 86900; 86901; 86923; 87040; 87070; 87102; 87205; 87389; 87449; 87633; 87640; 87641; 87899; 90999; 92526; 92610; 93005; 93306; 93880; 94640; 97110; 97162; 97166; 97530; 99285; A9585; J0131; J0360; J0456; J0613; J0696; J1100; J1171; J1644; J2020; J2060; J2405; J2543; J3371; J3480; J8540; P9016; Q5106; Q9957; Q9967

== ENCOUNTER → 2024-05-27 18:02 | Outpatient (BNV) | payer MEDICARE, OTHER, SELFPAY | PROVIDERS: Admitting Provider Internal Medicine; Emergency Provider Emergency Medicine; PCP Family Medicine; Visit Provider Internal Medicine Cardiovascular Disease | DX: R94.31 Abnormal electrocardiogram [ECG] [EKG] (principal); R42 Dizziness and giddiness | CPT/HCPCS: 93010 ==

== ENCOUNTER → 2024-05-27 18:21 | Outpatient (BNV) | payer MEDICARE, OTHER, SELFPAY | PROVIDERS: Emergency Provider Emergency Medicine; PCP Family Medicine; Visit Provider Student in an Organized Health Care Education/Training Program | DX: J01.90 Acute sinusitis, unspecified (principal) | CPT/HCPCS: 70450; 71045 ==

== ENCOUNTER 2024-05-28 02:08 | Outpatient (BNV) | payer MEDICARE, OTHER, SELFPAY | END 2024-06-01 07:00 | PROVIDERS: Admitting Provider Internal Medicine; Emergency Provider Emergency Medicine; PCP Family Medicine; Visit Provider Internal Medicine Cardiovascular Disease | DX: I35.8 Other nonrheumatic aortic valve disorders (principal); I34.81 Nonrheumatic mitral (valve) annulus calcification; I34.0 Nonrheumatic mitral (valve) insufficiency; I51.7 Cardiomegaly | CPT/HCPCS: 93306 ==

== ENCOUNTER 2024-05-28 02:08 | Outpatient (BNV) | payer MEDICARE, OTHER, SELFPAY | END 2024-06-03 08:44 | PROVIDERS: Admitting Provider Internal Medicine; Emergency Provider Emergency Medicine; PCP Family Medicine; Visit Provider Specialist | DX: J98.11 Atelectasis (principal) | CPT/HCPCS: 71045 ==

== ENCOUNTER 2024-05-28 02:08 | Outpatient (BNV) | payer MEDICARE, OTHER, SELFPAY | END 2024-05-31 07:00 | PROVIDERS: Admitting Provider Internal Medicine; Emergency Provider Emergency Medicine; PCP Family Medicine; Visit Provider Radiology Diagnostic Radiology | DX: C34.81 Malignant neoplasm of overlapping sites of right bronchus and lung (principal); J91.0 Malignant pleural effusion; I51.7 Cardiomegaly; R60.1 Generalized edema | CPT/HCPCS: 71260 ==

== ENCOUNTER 2024-05-28 02:08 | Outpatient (BNV) | payer MEDICARE, OTHER, SELFPAY | END 2024-05-30 10:59 | PROVIDERS: Admitting Provider Internal Medicine; Emergency Provider Emergency Medicine; PCP Family Medicine; Visit Provider Radiology Diagnostic Radiology | DX: I63.9 Cerebral infarction, unspecified (principal); I89.8 Other specified noninfective disorders of lymphatic vessels and lymph nodes | CPT/HCPCS: 93880 ==

== ENCOUNTER → 2024-05-28 02:08 | Outpatient (BNV) | payer MEDICARE, OTHER, SELFPAY | PROVIDERS: Admitting Provider Internal Medicine; Emergency Provider Emergency Medicine; PCP Family Medicine; Visit Provider Internal Medicine | DX: R91.8 Other nonspecific abnormal finding of lung field (principal); G93.89 Other specified disorders of brain | CPT/HCPCS: 99222; 99232 ==

== ENCOUNTER → 2024-05-28 02:08 | Outpatient (BNV) | payer MEDICARE, OTHER, SELFPAY | PROVIDERS: Admitting Provider Internal Medicine; Emergency Provider Emergency Medicine; PCP Family Medicine; Visit Provider Physician Assistant Surgical | DX: R91.8 Other nonspecific abnormal finding of lung field (principal); R53.1 Weakness; L02.415 Cutaneous abscess of right lower limb | CPT/HCPCS: 10060; 99024; 99222; 99232 ==

== ENCOUNTER → 2024-05-28 02:08 | Outpatient (BNV) | payer MEDICARE, OTHER, SELFPAY | PROVIDERS: Admitting Provider Internal Medicine; Emergency Provider Emergency Medicine; PCP Family Medicine; Visit Provider Internal Medicine | DX: J18.9 Pneumonia, unspecified organism (principal) | CPT/HCPCS: 99223; 99232; 99499 ==

== ENCOUNTER → 2024-05-28 02:08 | Outpatient (BNV) | payer MEDICARE, OTHER, SELFPAY | PROVIDERS: Admitting Provider Internal Medicine; Emergency Provider Emergency Medicine; PCP Family Medicine; Visit Provider Internal Medicine Nephrology | DX: N18.6 End stage renal disease (principal); Z99.2 Dependence on renal dialysis | CPT/HCPCS: 90935; 99232 ==

== ENCOUNTER → 2024-05-28 02:08 | Outpatient (BNV) | payer MEDICARE, OTHER, SELFPAY | PROVIDERS: Admitting Provider Internal Medicine; Emergency Provider Emergency Medicine; PCP Family Medicine; Visit Provider Hospitalist | DX: J18.9 Pneumonia, unspecified organism (principal); R91.8 Other nonspecific abnormal finding of lung field; J90 Pleural effusion, not elsewhere classified | CPT/HCPCS: 99223 ==

== ENCOUNTER → 2024-05-28 02:08 | Outpatient (BNV) | payer MEDICARE, OTHER, SELFPAY | PROVIDERS: Admitting Provider Internal Medicine; Emergency Provider Emergency Medicine; PCP Family Medicine; Visit Provider Psychiatry & Neurology Neurology | DX: G92.8 Other toxic encephalopathy (principal); R90.0 Intracranial space-occupying lesion found on diagnostic imaging of central nervous system | CPT/HCPCS: 99222 ==

== ENCOUNTER 2024-06-23 21:14 | Emergency (ER) | payer MEDICARE, OTHER, SELFPAY ==
[2024-06-23 21:18] VITALS: BP 164/61; PULSE 75; RESP 20; TEMP 36.3; O2SAT 100; BMI 18.7
[2024-06-23 22:07] LABS: Basophils Percent Auto 0.2 % (0-2); Eosinophils Absolute Auto 0.1 X10*3/uL (0.0-0.4); Eosinophils Percent Auto 2.4 % (0-4); Hematocrit 26.6 % (37.0-47.0); Hemoglobin 8.2 g/dl (12.0-16.0); Imm Gran Abs Auto 0.02 X10*3/uL (0.00-0.03); Imm Gran Pct Auto 0.4 % (0.0-0.4); Lymphocytes Absolute Auto 0.7 X10*3/uL (1.2-4.9); Lymphocytes Percent Auto 12.1 % (20-40); MANUAL DIFF FLAG NO; Mean Corpuscular HGB Conc 30.8 g/dl (31.0-35.0); Mean Corpuscular Hemoglobin 30.7 pg (27.0-33.0); Mean Corpuscular Volume 99.6 fL (80.0-98.0); Monocytes Absolute Auto 0.5 X10*3/uL (0.1-1.2); Monocytes Percent Auto 8.6 % (2-11); NRBC Pct Auto 0.4 /100WBC (0.0-0.2); Neutrophils Absolute Auto 4.1 x10*3/uL (2.0-8.3); Neutrophils Percent Auto 76.3 % (45-73); Red Blood Count 2.67 X10*6/uL (4.20-5.50); Red Cell Distribution Width 24.6 % (11.0-16.0); White Blood Count 5.4 X10*3/uL (4.8-10.8)
--- OUTSIDE RECORDS SUMMARY | 2024-06-23 22:20 | XMS_ITS | Encounter Summary ---
Author Organization [facility] Address [address] [place] [address] Phone Care Team Providers Care Lasting Room Supervisor Name Role Phone Fouzia Wetzelfer Primary Care Provider Unava ilable Encounter Details Date Type Department Care Team (Late st Contact Info) Description 05/01/2023 Documentation Only [facility] [address] [place] [phone] [place] [address] [place] [phone] Social History Tobacco Use Types Packs/Day Years [...] Care Team (Late st Contact Info) Description 07/13/2024 12:30 PM EDT Scheduled Only [facility] [address] [place] [phone] Scheduled Orders Name Type Priority Associated Diagnoses Orde r Schedule CBC and Differential Lab Routine Chronic kidney disease, stage 4 (severe) (HCC) Expected: 05/08/2023, Expires: 06/08/2024 Renal Function Panel Lab Routine Chronic kidney disease, stage 4 (severe) (HCC) Expected: 05/08/2023, Expires: 06/08/2024 documented as of this encounter Visit Diagnoses Diagnosis Chronic kidney disease, stage 4 (severe) (HCC)- Primary documented in this encounter Care Teams Lasting Room Supervisor Relationship Specialty Start Date End Date Marita Wetzel DO [address] [place] [address] PCP - General Family Medicine 11/14/22 documented as of this encounter
--- OUTSIDE RECORDS SUMMARY | 2024-06-23 22:20 | XMS_ITS | Encounter Summary ---
Author Organization [employer] Address [address] [facility] [address] [place] [address] Care Team Providers Care Senior J2E[employer] Developer Name Role Phone DamariMarita Primary Care Provider + [phone] Encounter Details Date Type Department Care Team (Late st Contact Info) Description 05/27/2024 Orders Only GENERIC EXTERNAL DATA DEPARTMENT Provider, Generic External Data Social History Tobacco Use Types Packs/Day Years [...] AM EDT documented as of this encounter Plan of Treatment Upcoming Encounters Date Type Department Care Team (Late st Contact Info) Description 08/20/2024 10:00 AM EDT Office Visit [facility] [address] [place] [address] Marita Wetzel DO [address] [place], [place] [id number] documented as of this encounter Goals Goal Patient Goal Type Associated Problems Recent Progress Patient-Stated? Author Hemoglobin A1c < 7 Result Component 5.9( 9:43 AM EDT) No Carmen Becker, PharmD Record your blood sugar as directed Result Component No Pujeffrey, Carmen, PharmD Note: Use CGM, ensuring sensor is scanned at least once every 8 hours to capture 24H data. Check BG manually, as directed. documented as of this encounter Procedures Procedure Name Priority Date/Time Associated Diagnosis Comments XR CHEST 1 VIEW Routine 06/04/2024 5:[address] CHEST W CONTRAST Routine 05/31/2024 7 :00 AM EST MR BRAIN W AND WO CONTRAST Routine 05/30/2024 2:27 PM EST [facility] US CAROTID ARTERY DUPLEX BILATERAL Routine 05/30/2024 1:[address] HEAD STROKE WO CONTRAST Routine 05/30/2024 11:28 AM EST BASIC METABOLIC PANEL Routine 05/27/2024 11:34 PM EST LACTIC ACID Routine 05/27/2024 9:[address] HEAD WO CONTRAST Routine 05/27/2024 9 :42 PM EST XR CHEST 1 VIEW Routine 05/27/2024 7:51 PM EST documented in this encounter Results * XR Chest 1 View (06/04/2024 5:19 AM EST) Anatomical Region Laterality Modality Chest Radiographic Lily ging 06/04/2024 5:19 AM EST Narrative 06/04/2024 5:20 AM EST ? [facility] ?[address] ?[place] [address] ?XRay Report ? Signed ? Patient: Genaro Shrapessa Melisa ?MR#: [id number] ?? 43 ? : 1960 ?Acct:[id number] ? Age/Sex: 64 / F ?ADM Date: 05/28/24 ? Loc: [facility] ?477-1 ? Attending Dr: Malik Orozco MD ? Ordering Physician: Nirav Osborn MD ?? Date of Service: 06/03/24 ?? Procedure(s): XR chest 1V ?? Accession Number(s): [id number] ? cc: Marita Wetzel DO; Nirav Osborn MD ? CLINICAL HISTORY: pneumonia ? 1 view chest x-ray ? Comparison: 05/27/2024 ? Findings: ?? Portions of the exam are obscured by overlying material. ?? The overall appearance of the chest including the possible right middle ?? and lower lobe atelectasis, are unchanged. ? IMPRESSION: ?? 1. No significant change from prior study. ? This document has been electronically signed by: Yoni Hobbs MD on ?? 06/04/2024 05:19:14 ? Dictated By: ?Yoni Hobbs MD ? Signed By: ?<Electronically signed by Yoni Hobbs MD in OV> ?06/04/24 0520 ? DD/ 0519 ? TD/TT: 06/04/24 0519 ? Hospice Rn: ? Procedure Note Delvis Grant - 06/04/2024 [facility] [address] [place] [address] XRay Report Signed Patient: Farhan Sharpa BMR#: [id number] 43 : 1Acct:[id number] Age/Sex: 64 / FADM Date: 05/28/24 Loc: [facility] 477-[address]: Malik Orozco MD Ordering Physician: Nirav Osborn MD Date of Service: 06/03/24 Procedure(s): XR chest 1V Accession Number(s): [id number] cc: Marita Wetzel DO; Nirav Osborn MD CLINICAL HISTORY: pneumonia 1 view chest x-ray Comparison: 05/27/2024 Findings: Portions of the exam are obscured by overlying material. The overall appearance of the chest including the possible right middle and lower lobe atelectasis, are unchanged. IMPRESSION: 1. No significant change from prior study. This document has been electronically signed by: Yoni Hobbs MD on 06/04/2024 05:19:14 Dictated By: Yoni Hobbs MD Signed By: <Electronically signed by Yoni Hobbs MD in OV> 06/04/2420 DD/ 8 TD/TT: 06/04/24518 Hospice Rn: [facility] External Provider IMG XR PROCEDURES Final Result * CT Chest w/ Contrast (05/31/2024 7:00 AM EST) Anatomical Region Laterality Modality Body, Chest Computed Tomogra phy 05/31/2024 7:00 AM EST Narrative 05/31/2024 9:38 AM EST ? [facility] ?[address] ?[place] [address] ? CT Scan Report ? Signed ? Patient: West,Alix B ?MR#: [id number] ?? 43 ? : 1960 ?Acct:[id number] ? Age/Sex: 64 / F ?ADM Date: 02/07/25 ? Loc: [facility] ?477-1 ? Attending Dr: Ab Barba MD ? Ordering Physician: Malik Orozco MD ?? Date of Service: 05/31/24 ?? Procedure(s): CT chest w IV con ?? Accession Number(s): [id number] ? cc: Malik Orozco MD; Marita Wetzel DO ? Report Number: ?? [id number]: Total DLP = ??187.00 mGy-cm ?? EXAMINATION: ?? CT CHEST WITH CONTRAST ? CLINICAL INFORMATION: ?? Suspected lung malignancy. Possible brain metastases on MRI. ? COMPARISON: ?? 04/07/2024 CT chest. ?? Chest x-ray 05/27/2024. ? TECHNIQUE: ?? Multidetector volumetric CT imaging of the chest was obtained after the ?? administration of 50 mL of Omnipaque 350 intravenous contrast without ?? immediate adverse reactions. Axial MIP volume rendering provided. ?? Sagittal and coronal reformatted images were obtained. ? This CT examination was performed using dose optimization techniques as ?? appropriate, variously including the following: ?? *Automated exposure control ?? *Adjustment of mA and/or kV according to patient size (this includes ?? techniques or standardized protocols for targeted exams where dose is ?? matched to indication/reason for exam; i.e. extremities or head) ?? *Use of iterative reconstruction technique ? FINDINGS: ? LUNGS: ?? There are several bilateral spiculated nodular opacities, most ?? confluent in the lateral right middle lobe, where lobulated suspected ?? soft tissue mass is present measuring 4.4 x 2.5 x 2.2 cm (AP, TRV, CC). ?? (Series 6, image 289). ?? There are additional small spiculated irregular nodular opacities in ?? the superior segment right lower lobe, posterior segment right upper ?? lobe, with smaller in the left lower lobe (numerous) and posterior left ?? upper lobe. ?? There is smooth interlobular septal thickening seen throughout the ?? right lung with sparing of the right upper lobe, and lesser degree seen ?? in the lingular segment left lower lobe, suggestive of interstitial ?? edema. There are associated mild patchy groundglass changes of the ?? parenchyma, possibly alveolar edema. ? PLEURA: ?? There is a pleural-based low attenuating peripherally enhancing lesion ?? abutting the anterior right atrium, measuring approximately 3.3 x 1.8 x ?? 3.2 cm. ??(Series 4, image 36). ?? There is a second pleural-based low attenuating peripherally enhancing ?? lesion abutting the anterior lateral right upper lobe, measuring 2.8 x ?? 1.3 cm in axial plane (series 4, image 27). ?? Small layering right effusion, with loculated component with split ?? pleura sign, and small amounts of internal gas, suggestive of pulmonary ?? abscess. Necrotic metastasis is also a possibility. This abnormality ?? measures approximately 5.3 cm in AP, by 8.1 cm transverse, by 9.4 cm in ?? craniocaudad dimension (series 4, image 52; series 8, image 79). ?? Tiny layering left effusion. ?? Fluid tracking into the right major and minor fissures. ?? Pleural thickening is present in the inferior right hilum abutting the ?? left atrial appendage. ? MEDIASTINUM: ?? Chest port present on the right, terminating in the right atrium. ? Normal thyroid. ?? There are low attenuating right hilar lymph nodes, measuring up to 1.2 ?? cm short axis, suspicious findings. ?? There are borderline-enlarged subcarinal and paratracheal lymph nodes ?? on the right. ?? Aorta is normal in caliber and course. Mild atheromatous calcification. ?? Main pulmonary artery is prominent, likely reflecting increased ?? pulmonary pressures, ?? There is mild cardiac enlargement. There is predominantly left atrial ?? dilatation. There is calcification of the mitral annulus. ?? There are heavy coronary calcifications. ?? Enlarged IVC suggesting increased right heart pressures. ? AXILLA/CHEST WALL: ?? Anasarca, right chest port. No axillary lymphadenopathy. ? UPPER ABDOMEN: ?? Renal atrophy. ?? Small hiatus hernia. ?? No discrete liver lesion, although are partially imaged. ? OSSEOUS STRUCTURES: ?? Mild sclerosis of the right anterior third rib, abutting a pleural ?? lesion. Chest wall involvement is not excluded. ?? No additional suspicious osseous findings. ? CT/CT chest w IV con ?? IMPRESSION: ?? 1. Spiculated soft tissue masses in both lungs, largest in the right ?? middle lobe laterally and posterior right upper lobe. Necrotic ?? appearing pleural based lesions right hemithorax. Right hilar low ?? attenuating lymph nodes and borderline enlarged mediastinal nodes. ?? Findings are consistent with advanced malignancy. ?? 2. Suspect right basilar loculated pleural abscess as described, ?? measuring up to 9 cm approximately. ?? 3. Smooth interlobular septal thickening right greater than left lungs, ?? with small layering pleural effusions, findings consistent with ?? superimposed pulmonary edema. ?? 4. Mild cardiomegaly with predominantly left atrial enlargement. ?? Findings suggesting elevated pulmonary and right heart pressures. ?? 5. Anasarca. ?? 6. Refer to the above for detailed. ? Findings communicated to Dr. Orozco via secure text at 9:34 AM, 05/31/2024. ? Electronically signed by: ??Timmy Fajardo MD ??05/31/2024 09:35 AM EST RP ? Dictated By: ?Timmy Fajardo MD ? Signed By: ?<Electronically signed by Timmy Fajardo MD in OV> ?05/31/24 0935 ? DD/ 0700 ? TD/TT: 05/31/24 0905 ? Hospice Rn: ? Procedure Note Delvis Grant - 05/31/[address] [place] [address] [address] Scan Report Signed Patient: Alix Sharp BMR#: [id number] 43 : 1960cct:[id number] Age/Sex: 64 / FADM Date: 05/28/24 Loc: .[facility] 477-[address]: Ab Barba MD Ordering Physician: Malik Orozco MD Date of Service: 05/31/24 Procedure(s): CT chest w IV con Accession Number(s): [id number] cc: Malik Orozco MD; Marita Wetzel DO Report Number: [id number]: Total DLP = 187.00 mGy-cm EXAMINATION: CT CHEST WITH CONTRAST CLINICAL INFORMATION: Suspected lung malignancy. Possible brain metastases on MRI. COMPARISON: 04/07/2024 CT chest. Chest x-ray 05/27/2024. TECHNIQUE: Multidetector volumetric CT imaging of the chest was obtained after the administration of 50 mL of Omnipaque 350 intravenous contrast without immediate adverse reactions. Axial MIP volume rendering provided. Sagittal and coronal reformatted images were obtained. This CT examination was performed using dose optimization techniques as appropriate, variously including the following: *Automated exposure control *Adjustment of mA and/or kV according to patient size (this includes techniques or standardized protocols for targeted exams where dose is matched to indication/reason for exam; i.e. extremities or head) *Use of iterative reconstruction technique FINDINGS: LUNGS: There are several bilateral spiculated nodular opacities, most confluent in the lateral right middle lobe, where lobulated suspected soft tissue mass is present measuring 4.4 x 2.5 x 2.2 cm (AP, TRV, CC). (Series 6, image 289). There are additional small spiculated irregular nodular opacities in the superior segment right lower lobe, posterior segment right upper lobe, with smaller in the left lower lobe (numerous) and posterior left upper lobe. There is smooth interlobular septal thickening seen throughout the right lung with sparing of the right upper lobe, and lesser degree seen in the lingular segment left lower lobe, suggestive of interstitial edema. There are associated mild patchy groundglass changes of the parenchyma, possibly alveolar edema. PLEURA: There is a pleural-based low attenuating peripherally enhancing lesion abutting the anterior right atrium, measuring approximately 3.3 x 1.8 x 3.2 cm. (Series 4, image 36). There is a second pleural-based low attenuating peripherally enhancing lesion abutting the anterior lateral right upper lobe, measuring 2.8 x 1.3 cm in axial plane (series 4, image 27). Small layering right effusion, with loculated component with split pleura sign, and small amounts of internal gas, suggestive of pulmonary abscess. Necrotic metastasis is also a possibility. This abnormality measures approximately 5.3 cm in AP, by 8.1 cm transverse, by 9.4 cm in craniocaudad dimension (series 4, image 52; series 8, image 79). Tiny layering left effusion. Fluid tracking into the right major and minor fissures. Pleural thickening is present in the inferior right hilum abutting the left atrial appendage. MEDIASTINUM: Chest port present on the right, terminating in the right atrium. Normal thyroid. There are low attenuating right hilar lymph nodes, measuring up to 1.2 cm short axis, suspicious findings. There are borderline-enlarged subcarinal and paratracheal lymph nodes on the right. Aorta is normal in caliber and course. Mild atheromatous calcification. Main pulmonary artery is prominent, likely reflecting increased pulmonary pressures, There is mild cardiac enlargement. There is predominantly left atrial dilatation. There is calcification of the mitral annulus. There are heavy coronary calcifications. Enlarged IVC suggesting increased right heart pressures. AXILLA/CHEST WALL: Anasarca, right chest port. No axillary lymphadenopathy. UPPER ABDOMEN: Renal atrophy. Small hiatus hernia. No discrete liver lesion, although are partially imaged. OSSEOUS STRUCTURES: Mild sclerosis of the right anterior third rib, abutting a pleural lesion. Chest wall involvement is not excluded. No additional suspicious osseous findings. CT/CT chest w IV con IMPRESSION: 1. Spiculated soft tissue masses in both lungs, largest in the right middle lobe laterally and posterior right upper lobe. Necrotic appearing pleural based lesions right hemithorax. Right hilar low attenuating lymph nodes and borderline enlarged mediastinal nodes. Findings are consistent with advanced malignancy. 2. Suspect right basilar loculated pleural abscess as described, measuring up to 9 cm approximately. 3. Smooth interlobular septal thickening right greater than left lungs, with small layering pleural effusions, findings consistent with superimposed pulmonary edema. 4. Mild cardiomegaly with predominantly left atrial enlargement. Findings suggesting elevated pulmonary and right heart pressures. 5. Anasarca. 6. Refer to the above for detailed. Findings communicated to Dr. Orozco via secure text at 9:34 AM, 05/31/2024. Electronically signed by: Timmy Fajardo MD 05/31/2024 09:35 AM EST Dictated By: Timmy Fajardo MD Signed By: <Electronically signed by Timmy Fajardo MD in OV> 05/31/2435 DD/ 07 TD/TT: 05/31/24 0905 Hospice Rn: [facility] External Provider IMG CT PROCEDURES Edited Result - Final * Mr Brain w/ and w/o Contrast (05/30/2024 2:27 PM EST) Anatomical Region Laterality Modality Brain Magnetic Resonan ce 05/30/2024 2:27 PM EST Narrative 05/30/2024 2:30 PM EST ? [place] [facility] ?[address] ?[place] [address] ? Magnetic Resonance Report ? Signed with Addenda ? Patient: West,Alix B ?MR#: [id number] ?? 43 ? : 1960 ?Acct:[id number] ? Age/Sex: 64 / F ?ADM Date: 05/28/24 ? Loc: [facility] ?477-1 ? Attending Dr: Malik Orozco MD ? Ordering Physician: Malik Orozco MD ?? Date of Service: 05/30/24 ?? Procedure(s): MR head/brain wo/w con ?? Accession Number(s): [id number] ? cc: Malik Orozco MD; Marita Wetzel DO ?ADDENDUM ?? This document has been electronically signed by: Codie Suggs MD on ?? 05/30/2024 14:27:51 ? ADDENDUM: ?? This report was discussed with Dr Pam Gan on May 30, 2024 14:50:00 ?? EST. ? This document has been electronically signed by: Kim Crow on ?? 05/30/2024 14:50:18 ? Addendum Dictated By: ?Codie Suggs MD ? Addendum Signed By: ? <Electronically signed by Codie Suggs MD in OV> ? 05/30/241450 ?? Addendum Cosigned By: ? DD/ /13/1427 ? TD/TT: 05/30/2401/13/1450 ? CLINICAL HISTORY: CVA ??- give ray per Dr. Lund ? MR Brain with and without gadolinium ? Comparison: CT/SR - CT HEAD FOR STROKE - 05/30/24 10:59 EST ? Findings: ?? There are 3 peripherally enhancing nodules within the brain, a 1.4 cm ?? nodule within the right hermes thalamus, a 1.1 cm nodule within the left ?? parietal lobe and a 9 mm nodule at the right temporo-occipital junction. ?? Severe associated vasogenic edema. Restricted diffusion also present at ?? each of these locations. No midline shift. No intracranial hemorrhage. ?? Involutional change brain parenchyma, compatible with age. ?? No intracranial mass or hemorrhage. ?? No midline shift. No hydrocephalus. ?? Vascular flow voids are intact. ? Orbital contents are unremarkable. ?? Severe mucosal thickening within the paranasal sinuses. ?? No focal bone lesion. ? IMPRESSION: ?? There are peripherally enhancing nodules within the right thalamus, left ?? parietal lobe and at the right temporo-occipital junction. This may be ?? secondary to metastatic disease or an inflammatory/ infectious process. ? This document has been electronically signed by: Codie Suggs MD on ?? 05/30/2024 14:27:51 ? Dictated By: ?Codie Suggs MD ? Signed By: ?<Electronically signed by Codie Suggs MD in OV> ? 05/30/241428 ? DD/ 26 ? TD/TT: 05/30/241426 ? Hospice Rn: ? Procedure Note Juanita, Image - 05/30/2024 [place] [address] Magnetic Resonance Report Signed with Addcarissa Patient: Alix Sharp BMR#: [id number] 43 : 1960cct:[id number] Age/Sex: 64 / FADM Date: 05/28/24 Loc: [facility] 477-[address]: Malik Orozco MD Ordering Physician: Malik Orozco MD Date of Service: 05/30/24 Procedure(s): MR head/brain wo/w con Accession Number(s): [id number] cc: Malik Orozco MD; Marita Wetzel DO ADDENDUM This document has been electronically signed by: Codie Suggs MD on 05/30/2024 14:27:51 ADDENDUM: This report was discussed with Dr Pam Gan on May 30, 2024 14:50:00 EST. This document has been electronically signed by: Kim Crow on 05/30/2024 14:50:18 Addendum Dictated By: Codie Suggs MD Addendum Signed By: <Electronically signed by MD Jesús in OV> 05/30/241450 Addendum Cosigned By: DD/ /13/1427 TD/TT: 05/30/2401/13/1450 CLINICAL HISTORY: CVA - give ray per Dr. Lund MR Brain with and without gadolinium Comparison: CT/SR - CT HEAD FOR STROKE - 05/30/24 10:59 EST Findings: There are 3 peripherally enhancing nodules within the brain, a 1.4 cm nodule within the right hermes thalamus, a 1.1 cm nodule within the left parietal lobe and a 9 mm nodule at the right temporo-occipital junction. Severe associated vasogenic edema. Restricted diffusion also present at each of these locations. No midline shift. No intracranial hemorrhage. Involutional change brain parenchyma, compatible with age. No intracranial mass or hemorrhage. No midline shift. No hydrocephalus. Vascular flow voids are intact. Orbital contents are unremarkable. Severe mucosal thickening within the paranasal sinuses. No focal bone lesion. IMPRESSION: There are peripherally enhancing nodules within the right thalamus, left parietal lobe and at the right temporo-occipital junction. This may be secondary to metastatic disease or an inflammatory/ infectious process. This document has been electronically signed by: Codie Suggs MD on 05/30/2024 14:27:51 Dictated By: Codie Suggs MD Signed By: <Electronically signed by Codie Suggs MD in OV> 05/30/24 1429 DD/ 26 TD/TT: 05/30/241426 Hospice Rn: [facility] External Provider IMG MRI PROCEDURES Edited Result - Final * VASC Carotid Artery Duplex Bilateral (05/30/2024 1:41 PM EST) 05/30/2024 1:41 PM EST Narrative [facility] - 05/31/2024 8:14 AM EST ? [facility] ?[address] ?[place] [address] ? Ultrasound Report ? Signed ? Patient: Alix Sharp ?MR#: [id number] ?? 43 ? : 1960 ?Acct:[id number] ? Age/Sex: 64 / F ?ADM Date: 05/28/24 ? Loc: [facility] ?477-1 ? Attending Dr: Ab Barba MD ? Ordering Physician: Malik Orozco MD ?? Date of Service: 05/30/24 ?? Procedure(s): US carotid duplex BI ?? Accession Number(s): [id number] ? cc: Malik Orozco MD; Marita Wetzel DO ? EXAMINATION: ??BILATERAL CAROTID ULTRASOUND WITH DOPPLER ? HISTORY: ??acute CVA ? COMPARISON: There are no prior studies for comparison. ? TECHNIQUE: Real time and Color and Spectral doppler ultrasonography of ?? the carotid and vertebral arteries was performed in multiple planes. ? FINDINGS: ??No significant plaque is identified. There is a mass in the ?? right neck measuring 2.4 x 1.9 x 2.2 cm with a central hypoechoic ?? region which may represent a necrotic lymph node. ? VERTEBRAL FLOW DIRECTION: Antegrade bilaterally. ? PEAK SYSTOLIC VELOCITIES (in cm/sec): ? RIGHT: ? CCA: ?? Prox: ??75 ?? Dist: ??88 ?? ICA: ?? Prox: 77 ?? Mid: 42 ?? Dist: 92 ? ICA/CCA Ratio: 1.05 ? ECA: ??263 ? Peak ICA EDV: 16 ? LEFT: ? CCA: ?? Prox: 77 ?? Dist: 61 ?? ICA: ?? Prox: 71 ?? Mid: 52 ?? Dist: 83 ? ICA/CCA Ratio: 1.08 ? ECA: ??125 ? Peak ICA EDV: 18 ? US/US carotid duplex BI ?? IMPRESSION: ? 1. Normal carotid ultrasound. ? 2. 2.4 x 1.9 x 2.2 cm mass in the right neck suspicious for a necrotic ?? lymph node. If further imaging is desired, CT of the neck with contrast ?? is suggested. ? Electronically signed by: ??Db Berry MD ??05/31/2024 08:12 AM EST ? Dictated By: ?Db Berry MD ? Signed By: ?<Electronically signed by Db Berry MD in OV> ?05/31/24 0812 ? DD/ 1341 ? TD/TT: 05/30/24 1352 ? Hospice Rn: ? Procedure Note Delvis Grant - 05/31/[address] [address] Ultrasound Report Signed Patient: Alix Sharp BMR#: [id number] 43 : 1Acct:[id number] Age/Sex: 64 / FADM Date: 05/28/24 [facility]: [facility] 477-[address]: Ab Barba MD Ordering Physician: Malik Orozco MD Date of Service: 05/30/24 Procedure(s): US carotid duplex BI Accession Number(s): [id number] cc: Malik Orozco MD; Marita Wetzel DO EXAMINATION: BILATERAL CAROTID ULTRASOUND WITH DOPPLER HISTORY: acute CVA COMPARISON: There are no prior studies for comparison. TECHNIQUE: Real time and Color and Spectral doppler ultrasonography of the carotid and vertebral arteries was performed in multiple planes. FINDINGS: No significant plaque is identified. There is a mass in the right neck measuring 2.4 x 1.9 x 2.2 cm with a central hypoechoic region which may represent a necrotic lymph node. VERTEBRAL FLOW DIRECTION: Antegrade bilaterally. PEAK SYSTOLIC VELOCITIES (in cm/sec): RIGHT: CCA: Prox: 75 Dist: 88 ICA: Prox: 77 Mid: 42 Dist: 92 ICA/CCA Ratio: 1.05 ECA: 263 Peak ICA EDV: 16 LEFT: CCA: Prox: 77 Dist: 61 ICA: Prox: 71 Mid: 52 Dist: 83 ICA/CCA Ratio: 1.08 ECA: 125 Peak ICA EDV: 18 US/US carotid duplex BI IMPRESSION: 1. Normal carotid ultrasound. 2. 2.4 x 1.9 x 2.2 cm mass in the right neck suspicious for a necrotic lymph node. If further imaging is desired, CT of the neck with contrast is suggested. Electronically signed by: Db Berry MD 05/31/2024 08:12 AM [facility] Dictated By: Db Berry MD Signed By: <Electronically signed by Db Berry MD in OV> 05/31/24 0812 DD/ 1341 TD/TT: 05/30/24 1352 Hospice Rn: us [facility] External Provider CV VASC ULAR PROCEDURES Edited Result - Final [facility] [address] [place] [address] * CT Head Stroke w/o Contrast (05/30/2024 11:28 AM EST) Anatomical Region Laterality Modality Computed Tomogra phy 05/30/2024 11:2 8 AM EST Narrative 05/30/2024 11:30 AM EST ? [facility] ?[address] ?[place] [address] ? CT Scan Report ? Signed with Addenda ? Patient: West,Alix B ?MR#: [id number] ?? 43 ? : 1960 ?Acct:[id number] ? Age/Sex: 64 / F ?ADM Date: 05/28/24 ? Loc: [facility] ?477-1 ? Attending Dr: Malik Orozco MD ? Ordering Physician: Malik Orozco MD ?? Date of Service: 05/30/24 ?? Procedure(s): CT head for STROKE ?? Accession Number(s): [id number] ? cc: Malik Orozco MD; Marita Wetzel DO ? Report Number: ?? [id number]: Total DLP = ??749.00 mGy-cm ?ADDENDUM ?? This document has been electronically signed by: Yoni Beaver MD on ?? 05/30/2024 11:28:55 ? ADDENDUM: ?? This report was discussed with Pam Gan ??on May 30, 2024 11:37:00 EST. ? This document has been electronically signed by: Mitra Flores on ?? 05/30/2024 11:37:15 ? Addendum Dictated By: ?Yoni Beaver MD ? Addendum Signed By: ? <Electronically signed by Yoni Beaver MD in OV> ? 05/30/248 ?? Addendum Cosigned By: ? DD/ /14/1128 ? TD/TT: 05/30/2401/13/1137 ? CLINICAL HISTORY: LUE weakness ? CT head without contrast. ? Comparison: CT/SR - CT HEAD/BRAIN WO IV CON - 2/10/13 20:50 EST ?? CT/REG/SR - CT HEAD/BRAIN WO CON - 11/29/21 09:[address] ?? CT/SR - BRAIN WO IV CONTRAST [id number] - 09/16/18 13:47 EDT ? Findings: ?? Findings concerning for recent ischemia in the right thalamus and thalamus ?? capsular junction. ?? Additional nonspecific low-attenuation changes possibly gliosis in the ?? posterior left parietal lobe. Overlying cortical mantle appears intact. ?? Still changes new from 2021 CT, further correlation with head MRI ?? suggested. ?? No acute hemorrhage, mass effect or extra-axial collection. Basal cisterns ?? are patent. Involutional changes prominent for age. Posterior fossa ?? structures intact. Dense calcification of the carotid siphons and distal ?? vertebral arteries. ?? Skull intact. Extensive mucoperiosteal thickening of the paranasal ?? sinuses. Mastoids clear. Physiologic calcification of the interhemispheric ?? falx. Globes and orbits intact status post cataract surgery. ? Impression: ?? Subtle low-attenuation changes in the right thalamus and thalamus capsular ?? junction concerning for possible acute ischemia. ?? Nonspecific subcortical edema or gliosis in the posterior left parietal ?? lobe. Further correlation of the above findings with MRI suggested. ?? No acute hemorrhage, mass effect or extra-axial collection. ? This document has been electronically signed by: Yoni Beaver MD on ?? 05/30/2024 11:28:55 ? Dictated By: ?Yoni Beaver MD ? Signed By: ?<Electronically signed by Yoni Beaver MD in OV> ? 05/30/24 1130 ? DD/ 1128 ? TD/TT: 05/30/24 1128 ? Hospice Rn: ? Procedure Note Juanita, Image - 05/30/[address] [place] [address] [address] Scan Report Signed with Daniel Patient: Alix Sharp BMR#: [id number] 43 : 1960cct:[id number] Age/Sex: 64 / FADM Date: 05/28/24 Loc: [facility] 477-[address]: Malik Orozco MD Ordering Physician: Malik Orozco MD Date of Service: 05/30/24 Procedure(s): CT head for STROKE Accession Number(s): [id number] cc: Malik Orozco MD; Marita Wetzel DO Report Number: [id number]: Total DLP = 749.00 mGy-cm ADDENDUM This document has been electronically signed by: Yoni Beaver MD on 05/30/2024 11:28:55 ADDENDUM: This report was discussed with Pam Blainesayraniall on May 30, 2024 11:37:00 EST. This document has been electronically signed by: Mitra Flores on 05/30/2024 11:37:15 Addendum Dictated By: Yoni Beaver MD Addendum Signed By: <Electronically signed by Yoni Beaver MD in OV> 05/30/248 Addendum Cosigned By: DD/ /14/1128 TD/TT: 05/30/2401/13/1137 CLINICAL HISTORY: LUE weakness CT head without contrast. Comparison: CT/SR - CT HEAD/BRAIN WO IV CON - 05/27/24 20:[address]/REG/SR - CT HEAD/BRAIN WO CON - 11/29/21 09:[address]/SR - BRAIN WO IV CONTRAST [id number] - 09/16/18 13:47 EDT Findings: Findings concerning for recent ischemia in the right thalamus and thalamus capsular junction. Additional nonspecific low-attenuation changes possibly gliosis in the posterior left parietal lobe. Overlying cortical mantle appears intact. Still changes new from 2021 CT, further correlation with head MRI suggested. No acute hemorrhage, mass effect or extra-axial collection. Basal cisterns are patent. Involutional changes prominent for age. Posterior fossa structures intact. Dense calcification of the carotid siphons and distal vertebral arteries. Skull intact. Extensive mucoperiosteal thickening of the paranasal sinuses. Mastoids clear. Physiologic calcification of the interhemispheric falx. Globes and orbits intact status post cataract surgery. Impression: Subtle low-attenuation changes in the right thalamus and thalamus capsular junction concerning for possible acute ischemia. Nonspecific subcortical edema or gliosis in the posterior left parietal lobe. Further correlation of the above findings with MRI suggested. No acute hemorrhage, mass effect or extra-axial collection. This document has been electronically signed by: Yoni Beaver MD on 05/30/2024 11:28:55 Dictated By: Yoni Beaver MD Signed By: <Electronically signed by Yoni Beaver MD in OV> 05/30/24 1130 DD/ 27 TD/TT: 05/30/241127 Hospice Rn: [facility] External Provider IMG CT PROCEDURES Edited Result - Final * (ABNORMAL) Basic Metabolic Panel (05/27/2024 11:34 PM EST) Sodium 135 135 - 145 mmol/L [facility] Potassium 6.1(HH) 3.3 - 5.1 mmol/L [facility] Comment:Critical value for t est(s): POTS Results called to and readback by: ELICEO Person calling: TIMI Date:05/27/24 Time:2359 Chloride 104 96 - 108 mmol/L [facility] Carbon Dioxide 23 22 - 29 mmol/L [facility] Anion Gap 14 12 - 20 [facility] Urea Nitrogen (BUN) 50(H) 9 - 16 mg/dL [facility] Creatinine, Serum 3.04(H) 0.5 - 1.4 mg/dL [facility] Creatinine Clr Calc Pharmacy 14.1 [facility] Comment:Provided height and weight: 167.64 cm,48 kg.eGFR (calculated from the MDRD study equation) and eCrCl(calculated from the Cockcroft-Gault equation) are based ondifferent parameters and may not yield comparable results.If eCrCl result is absurd, please check patient'sheight/weight. Estimated Glomerular Filt Rate 15 [facility] Comment:Chronic Kidney Disea se: Estimated GFR < 60 mL/min/1.58w2Yzhfmc Kidney Disease: Estimated GFR < 15 mL/min/1.73m2 Glucose 76 60 - 115 mg/dL [facility] Calcium 9.4 8.4 - 10.2 mg/dL [facility] 05/27/2024 11:3 4 PM EST 05/27/2024 11:37 PM EST us Generic External Data Provider LAB BLOOD ORDERAB LES Final Result [facility] [address] [place] [phone] * Lactic Acid (05/27/2024 9:44 PM EST) Lactic Acid 0.5 0.5 - 2.0 mmol/L [facility] 05/27/2024 9:44 PM EST 05/27/2024 9:54 PM EST us Generic External Data Provider LAB BLOOD ORDERAB LES Final Result [facility] [address] [facility] [place] [phone] * CT Head w/o Contrast (05/27/2024 9:42 PM EST) Anatomical Region Laterality Modality Head, Neck Computed Tomogra phy 05/27/2024 9:42 PM EST Narrative 05/27/2024 9:44 PM EST ? [facility] ?[address] ?[place] [address] ? CT Scan Report ? Signed ? Patient: West,Alix B ?MR#: [id number] ?? 43 ? : 1960 ?Acct:[id number] ? Age/Sex: 64 / F ?ADM Date: 05/27/24 ? Loc: HO.ED ? Attending Dr: ? Ordering Physician: Jerod Simons ?? Date of Service: 05/27/24 ?? Procedure(s): CT head/brain wo IV con ?? Accession Number(s): [id number] ? cc: Marita Wetzel DO; Jerod Simons ? Report Number: ?? [id number]: Total DLP = 1132.00 mGy-cm ? CLINICAL HISTORY: left sided weakness ? CT head without contrast ? Comparison: CT/REG/SR - CT HEAD/BRAIN WO CON - 8/11/22 09:45 EDT ? Findings: ?? No intra-axial mass, midline shift, hydrocephalus, or acute hemorrhage. ?? Moderate atrophy-like change or white matter disease. ? Moderate mucosal thickening and opacification of the bilateral anterior ?? ethmoid air cells, right frontal sinus, bilateral maxillary as well as ?? sphenoid sinus. Air-fluid levels are noted within the maxillary sinus. ?? Bilateral mastoid air cells are clear. ?? The orbits are unremarkable. ?? No skull fracture. ? IMPRESSION: ?? 1. No acute intracranial findings. ?? 2. Acute sinusitis. ? This document has been electronically signed by: Paul Restrepo MD on ?? 05/27/2024 21:42:39 ? Dictated By: ?Paul Restrepo MD ? Signed By: ?<Electronically signed by Paul Restrepo MD in OV> ?05/27/242142 ? DD/ 41 ? TD/TT: 05/27/242141 ? Hospice Rn: ? Procedure Note Donotuseinterpreter, Image - 05/27/[address] [address] [address] Scan Report Signed Patient: Alix Sharp BMR#: [id number] 43 : 1960cct:[id number] Age/Sex: 64 / FADM Date: 05/27/24 Loc: HO.ED Attending Dr: Ordering Physician: Jerod Simons Date of Service: 05/27/24 Procedure(s): CT head/brain wo IV con Accession Number(s): [id number] cc: Marita Wetzel DO; Jerod Simons Report Number: [id number]: Total DLP = 1132.00 mGy-cm CLINICAL HISTORY: left sided weakness CT head without contrast Comparison: CT/REG/SR - CT HEAD/BRAIN WO CON - 11/29/21 09:45 EDT Findings: No intra-axial mass, midline shift, hydrocephalus, or acute hemorrhage. Moderate atrophy-like change or white matter disease. Moderate mucosal thickening and opacification of the bilateral anterior ethmoid air cells, right frontal sinus, bilateral maxillary as well as sphenoid sinus. Air-fluid levels are noted within the maxillary sinus. Bilateral mastoid air cells are clear. The orbits are unremarkable. No skull fracture. IMPRESSION: 1. No acute intracranial findings. 2. Acute sinusitis. This document has been electronically signed by: Paul Restrepo MD on 05/27/2024 21:42:39 Dictated By: Paul Restrepo MD Signed By: <Electronically signed by Paul Restrepo MD in OV> 05/27/242142 DD/ 41 TD/TT: 05/27/242141 Hospice Rn: us [facility] External Provider IMG CT PROCEDURES Final Result * XR Chest 1 View (05/27/2024 7:51 PM EST) Anatomical Region Laterality Modality Chest Radiographic Lily ging 05/27/2024 7:51 PM EST Narrative 05/27/2024 10:02 PM EST ? [facility] ?[address] ?[place] [address] ?XRay Report ? Signed ? Patient: West,Alix B ?MR#: [id number] ?? 43 ? : 1960 ?Acct:[id number] ? Age/Sex: 64 / F ?ADM Date: 05/27/24 ? Loc: HO.ED ? Attending Dr: ? Ordering Physician: Jerod Simons ?? Date of Service: 05/27/24 ?? Procedure(s): XR chest 1V ?? Accession Number(s): [id number] ? cc: Marita Wetzel DO; Jerod Simons ? CLINICAL HISTORY: weakness ? 1 view chest x-ray ? Comparison: None ? Findings: ?? Right mid lung patchy consolidations. Small patchy consolidation of the ?? left lower lobe. Diffuse interstitial prominence in both lungs. Small ?? right pleural effusion. ?? Heart size is normal. ?? No acute fracture. ? IMPRESSION: ?? 1. Right mid lung and left lower lobe patchy consolidation may represent ?? multifocal pneumonia. ?? 2. Diffuse interstitial prominence and small right pleural effusion may ?? represent pulmonary edema /fluid overload. ? This document has been electronically signed by: Paul Restrepo MD on ?? 05/27/2024 19:51:57 ? Dictated By: ?Paul Restrepo MD ? Signed By: ?<Electronically signed by Paul Restrepo MD in OV> ?05/27/242201 ? DD/ 50 ? TD/TT: 05/27/241950 ? Hospice Rn: ? Procedure Note Delvis Grant - 05/27/2024 [place] [address] [place] [address] XRay Report Signed Patient: Alix Sharp BMR#: [id number] 43 : 1960cct:[id number] Age/Sex: 64 / FADM Date: 05/27/24 Loc: HO.ED Attending Dr: Ordering Physician: Jerod Simons Date of Service: 05/27/24 Procedure(s): XR chest 1V Accession Number(s): [id number] cc: Marita Wetzel DO; Jerod Simons CLINICAL HISTORY: weakness 1 view chest x-ray Comparison: None Findings: Right mid lung patchy consolidations. Small patchy consolidation of the left lower lobe. Diffuse interstitial prominence in both lungs. Small right pleural effusion. Heart size is normal. No acute fracture. IMPRESSION: 1. Right mid lung and left lower lobe patchy consolidation may represent multifocal pneumonia. 2. Diffuse interstitial prominence and small right pleural effusion may represent pulmonary edema /fluid overload. This document has been electronically signed by: Paul Restrepo MD on 05/27/2024 19:51:57 Dictated By: Paul Restrepo MD Signed By: <Electronically signed by Paul Restrepo MD in OV> 05/27/242201 DD/ 50 TD/TT: 05/27/241950 Hospice Rn: [facility] External Provider IMG XR PROCEDURES Final Result documented in this encounter Visit Diagnoses Not on filedocumented in this encounter Additional Health Concerns Assessment Noted Time PHQ-9 Depression Total Score: 0 10/09/19 23 9:31 AM EDT documented as of this encounter Care Teams Senior J2Ee Developer Relationship Specialty Start Date End Date Marita Wetzel DO [address] [place] [address] PCP - General Family Medicine 04/21/18 [facility] 05/22/24 documented as of this encounter
--- OUTSIDE RECORDS SUMMARY | 2024-06-23 22:20 | XMS_ITS | Encounter Summary ---
Author Organization [facility] Address [address] [place] [address] Phone Care Team Providers Care Sales Representative Cash Registers Name Role Phone Marita Wetzel DO Primary Care Provider Unava ilable Encounter Details Date Type Department Care Team (Late st Contact Info) Description 10/24/2023 Documentation Only [facility] [address] [phone] [place] [address] [place] [phone] Social History Tobacco Use Types Packs/Day Years [...] [facility] [address] [place] [phone] documented as of this encounter Visit Diagnoses Not on filedocumented in this encounter Care Teams Sales Representative Cash Registers Relationship Specialty Start Date End Date Marita Wetzel DO [address] [place] [phone] PCP - General Family Medicine 11/14/22 documented as of this encounter
--- OUTSIDE RECORDS SUMMARY | 2024-06-23 22:20 | XMS_ITS ---
Author Organization [facility] Address [address] [place] [address] Care Team Providers Care Golf Starter And Ranger Name Role Phone Miryam Tyson Unavailable [phone] REASON FOR VISIT CLAIM ADJUSTER Encounters Encounter Location Date Provider Diagnosis [facility] [address] [place] [address] 04/22/2024 Miryam Tyson Plan Of Treatment No Information Progress Notes * Chris BEARDB:1960 (63 yo F)Acc No.[id number]:04/22/2024 Patient:?Alix BEARD :1960???Age:63 Y???Sex:Female Address:[address] [place] [address], [phone] * true * Date:? Generated for Michael santos/Chloe/eTransmitting on:?06/23/2024 10:19 PM EST
--- OUTSIDE RECORDS SUMMARY | 2024-06-23 22:20 | XMS_ITS | Encounter Summary ---
Author Organization [facility] Address [address] [place] [address] Phone Care Team Providers Care Finishing Area Supervisor Name Role Phone Marita Wetzel DO Primary Care Provider Unava ilable Encounter Details Date Type Department Care Team (Late st Contact Info) Description 10/17/2023 Documentation Only [facility] [address] [place] [phone] [place] [address] [place] [phone] Social History Tobacco Use Types Packs/Day Years [...] [facility] [address] [place] [phone] documented as of this encounter Visit Diagnoses Not on filedocumented in this encounter Care Teams Finishing Area Supervisor Relationship Specialty Start Date End Date Marita Wetzel DO [address] [place] [address] PCP - General Family Medicine 11/14/22 documented as of this encounter
--- OUTSIDE RECORDS SUMMARY | 2024-06-23 22:20 | XMS_ITS | Patient Health Record ---
Author Organization [facility] Address [address] [place] [address] Care Team Providers Care Tacking Machine Operator Name Role Phone FiorellasylwiaMiryam Unavailable [phone] Reason For Referral No Information Encounters Encounter Location Date Provider Diagnosis [facility] [address] [place] [address] 04/22/2024 Miryam Tyson [facility] [address] [place] [address] 06/17/2024 Miryam Tyson Plan Of Treatment No Information Insurance Providers Payer Name Payer Address Payer Phone Subscriber Number Group Number Insured Name Patient Relationship to Insured Coverage Start Date Coverage End Date Medicare National [facility] [address] [place] [address] [id number] Alix Sharp Self - patient is the insured for Life [address] [place] [phone] [id number] Alix Sharp Self - patient is the insured
--- OUTSIDE RECORDS SUMMARY | 2024-06-23 22:20 | XMS_ITS | Encounter Summary ---
Author Organization [facility] Address [address] [place] [phone] Phone Care Team Providers Care Surgical Training Specialist Name Role Phone Marita Wetzel DO Primary Care Provider Unava ilable Encounter Details Date Type Department Care Team (Late st Contact Info) Description 10/03/2023 Documentation Only [facility] [address] [place] [phone] Srinivas Agrawal MD [address] [place] [address] [place] [address] Social History Tobacco Use Types Packs/Day Years [...] Only [facility] [address] [place] [address] [place] [phone] documented as of this encounter Visit Diagnoses Not on filedocumented in this encounter Care Teams Surgical Training Specialist Relationship Specialty Start Date End Date Marita Wetzel DO [address] [place] [address] PCP - General Family Medicine 11/14/22 documented as of this encounter
--- OUTSIDE RECORDS SUMMARY | 2024-06-23 22:20 | XMS_ITS | Encounter Summary ---
Author Organization [facility] Address [address] [place] [address] Phone Care Team Providers Care Management Internship Name Role Phone Marita Wetzel DO Primary Care Provider Unava ilable Encounter Details Date Type Department Care Team (Late st Contact Info) Description 05/20/2023 Documentation Only [facility] [address] [place] [phone] [place] [address] [place] [phone] Social History Tobacco Use Types Packs/Day Years [...] [facility] [address] [place] [phone] documented as of this encounter Visit Diagnoses Not on filedocumented in this encounter Care Teams Management Internship Relationship Specialty Start Date End Date Marita Wetzel DO [address] [place] [address] PCP - General Family Medicine 11/14/22 documented as of this encounter
--- OUTSIDE RECORDS SUMMARY | 2024-06-23 22:20 | XMS_ITS | Encounter Summary ---
Author Organization [facility] Address [address] [place] [address] Phone Care Team Providers Care Funeral Home Associate Name Role Phone Marita Wetzel DO Primary Care Provider Unava ilable Encounter Details Date Type Department Care Team (Late st Contact Info) Description 10/06/2023 Documentation Only [facility] [address] [place] [phone] [place] [address] [place] [phone] Social History Tobacco Use Types Packs/Day Years [...] Only [facility] [address] [place] [place] [phone] documented as of this encounter Visit Diagnoses Not on filedocumented in this encounter Care Teams Funeral Home Associate Relationship Specialty Start Date End Date Marita Wetzel DO [address] [place] [address] PCP - General Family Medicine 11/14/22 documented as of this encounter
--- OUTSIDE RECORDS SUMMARY | 2024-06-23 22:20 | XMS_ITS ---
Author Name Vicki, Clinic Address [address] [place] [address] Phone [phone] Organization [facility] e, NA DOCUMENT DISCLAIMER Multiple document versions may exist, please be sure you review the latest version. The information in the [facility] Continuity of Care Document represents a summary of certain health and medical information. It may not contain the complete medical history for the patient and should be independently verified. The represented time in the document is Eastern Time. PROBLEMS Problem Code Status Onset Date Unspecified bacterial pneumonia J15.9 Active May 24, 2024 Other disorders of electroly te and fluid balance, not elsewhere classified E87.8 Active April 26 Moderate protein-calorie malnutrition E44.0 Act tracy April 26, 2024 Pain, unspecified R52 Active April Fever, unspecified R50.9 Active April Diarrhea, unspecified R19.7 Active Apruar y 2024 Hypertensive chronic kidney disease with stage 1 through stage 4 chronic kidney disease, or unspecified chronic kidney disease I12.9 Active ry 2024 End stage renal disease N18.6 Active Mateo man 2024 Type 2 diabetes mellitus wit h diabetic chronic kidney disease E11.22 Active April 23, 2024 Shortness of breath R06.02 Active April 23, 2024 nursing home (current) use of i nhibitors of nucleotide synthesis Z79.624 Active April 21, 2024 nursing home (current) use of calcineurin inhibitor Z79.6 21 Active April 21, 2024 Anemia in chronic kidney disease D63.1 Active April 21, 2024 Iron deficiency anemia, unspecified D50.9 Activ e April 21, 2024 Vitamin D deficiency, unspecified E55.9 Active April 21, 2024 Secondary hyperparathyroidism of renal origin N25.81 Active April 21, 2024 Hyperlipidemia, unspecified E78.5 Active April 21, 2024 Renal osteodystrophy N25.0 Active April 21, 2024 Hypertensive chronic kidney disease with stage 5 chronic kidney disease or end stage renal disease I12.0 Active April 21, 2024 Kidney transplant failure T86.12 Active Blaine stephenson 2024 Chronic kidney disease, stage 5 N18.5 Active April 21, 2024 Dependence on renal dialysis Z99.2 Active April 21, 2024 ALLERGIES AND ADVERSE REACTIONS Substance Reaction Severity Status codeine Unknown Active oxycodone Unknown Active SOCIAL HISTORY Tobacco Use Status Tobacco Type Unknown if ever consumed tobacco - Caregiver Characteristics Need Level ADL Type Relationship of Caregiver Requires some assistance Bathing Dressin g Toileting Shoppin g Meal preparation Laundry Housekeeping M edication management Managing medical appointments Managing finances Family Characteristics of Home environment Housing Status Patient Resides With Patient lives with h er and son in a private home. Gender and Sex Information Gender Identity Sexual Orientation No Information Available No Information Available MEDICATIONS Prescribed Medications for Dialysis Treatments Medication Instructions Dosage Route Start Date End Date [facility] Mircera During Dialysis, Every 2 weeks 200 mcg Intravenous - push June 02, 2024 June 01, 2025 Active Home Medications Medication Instructions Dosage Route Start Date End Date Status amlodipine 10 mg Take by mouth once a day 1 tablet ORAL May 24, 2024 Active carvedilol 25 mg Take by mouth twice a day 1 tablet ORAL May 24, 2024 Active Humalog KwikPen Insulin 100 unit/mL Inject subcutaneously three times a day SUBCUTANEOUS May 24, 2024 Active hydralazine 50 mg Take by mouth twice a day as directed 1 tablet ORAL July 18, 2021 Active hydromorphone 4 mg Take by mouth every four hours as needed for pain 1 tablet ORAL May 24, 2024 Active isosorbide mononitrate 30 mg once a day 1 tablet ORAL May 24, 2024 Active Nephro-Rhina 0.8 mg Take by mouth once a day 1 tablet ORAL May 24, 2024 Active pantoprazole 40 mg Take by mouth once a day 1 tablet ORAL May 24, 2024 Active prednisolone 5 mg Take by mouth once a day 1 1/2 tablet ORAL May 24, 2024 Active sertraline 25 mg Take by mouth once a day 1 tablet ORAL May 24, 2024 Active sodium bicarbonate 650 mg Take by mouth twice a day 1 tablet ORAL May 24, 2024 Active sucralfate 1 gram Take by mouth three times a day 1 tablet ORAL May 24, 2024 Active tacrolimus 5 mg Take by mouth once a day 2 capsule ORAL May 24, 2024 Active VITAL SIGNS Post-Treatment Vital Signs Vital Sign Value Date / Time Blood Pressure-sitting 177/71 mmHg June 23, 2024 02:31 PM Heart Rate 73 beats per minute June 23 02:31 PM Respiratory Rate 18 breaths per minute June 23, 2024 02:31 PM Temperature 97.4 deg. F June 23, 2024 0 2:31 PM Weight Vital Sign Value Date / Time Estimated Dry Weight 52 kg May 11:59 PM Pre-Dialysis 55.40 kg June 23, 2024 0 2:31 PM Post-Dialysis 54.60 kg June 23, 2024 0 2:31 PM Other Other Value Date / Time Height 170 cm April 23, 2024 12:00 AM Body Mass Index 15.74 kg/m2 June 01 02:08 PM HEALTH CONCERNS Tuberculosis Testing TST Date Administered TST Date Read TST Result 03/05/2024 03/08/2024 Negative (<5) mm LAB RESULTS Hematology Result Type Result Value Relevant Referen ce Range Interpretation Date Transferrin Sat. (Calc) 28 % 20 - 55 % - April 23, 2024 TIBC (Calc) 111 mcg/dL 185 - 515 mcg/dL Low April 23, 2024 UIBC/TIBC 80 mcg/dL 155 - 355 mcg/dL Low April 23, 2024 WBC (No Diff) 9.46 1000/mcL 4.80 - 10.80 1000/mcL - April 23, 2024 MCH 28.1 pg 27.0 - 31.0 pg - April MCHC 29.9 g/dL 30.0 - 36.0 g/dL Low April 23, 2024 Iron 31 mcg/dL 30 - 160 mcg/dL - April RDW 16.9 % 11.5 - 14.5 % High April 23, 2024 Hemoglobin x 3 24 % 36.0 - 48.0 % Low April 23, 2024 Retic HGB (CHr) 26.0 pg 25.4 - 31.8 pg - 2024 Ferritin 3177 ng/mL 10 - 291 ng/mL High April Hemoglobin x 3 25.2 % 36.0 - 48.0 % Low April 28, 2024 Hemoglobin x 3 22.2 % 36.0 - 48.0 % Low 2024 HGB 8.5 g/dL 12.0 - 16.0 g/dL Low May 24, 2024 Hemoglobin x 3 25.5 % 36.0 - 48.0 % Low 2024 TIBC (Calc) 188 mcg/dL 185 - 515 mcg/dL - 2024 UIBC/TIBC 89 mcg/dL 155 - 355 mcg/dL Low June 18, 2024 Transferrin Sat. (Calc) 53 % 20 - 55 % - June 18 Ferritin 1648 ng/mL 10 - 291 ng/mL High May 232024 Hemoglobin x 3 23.7 % 36.0 - 48.0 % Low 2024 HGB 7.9 g/dL 12.0 - 16.0 g/dL Low June 18, 2024 Iron 99 mcg/dL 30 - 160 mcg/dL - June 18, 2024 Metabolic/Renal Result Type Result Value Relevant Referen ce Range Interpretation Date Bicarbonate 21 mEq/L 22 - 29 mEq/L Low April Creatinine, Serum 3.62 mg/dL 0.60 - 1.30 mg/dL High April 23, 2024 Chloride 110 mEq/L 96 - 108 mEq/L High April Hemoglobin A1c 5.8 % 4.8 - 5.9 % - April Potassium 3.9 mEq/L 3.5 - 5.1 mEq/L - April Sodium 142 mEq/L 136 - 145 mEq/L - April BUN/Creat Ratio 12.2 10.0 - 20.0 - April 23, 2024 URR, Calc 59 % 65 - 80 % Low April 23 BUN 44 mg/dL 6 - 19 mg/dL High April 23, 2024 BUN, Post 18 mg/dL 6 - 19 mg/dL - April 23, 2024 Potassium 4.9 mEq/L 3.5 - 5.1 mEq/L - April 212024 Bicarbonate 27 mEq/L 22 - 29 mEq/L - April Potassium 5.0 mEq/L 3.5 - 5.1 mEq/L - April 212024 BUN 49 mg/dL 6 - 19 mg/dL High May 10, 2024 URR, Calc 69 % 65 - 80 % - May 10 BUN, Post 15 mg/dL 6 - 19 mg/dL - May 10, 2024 Potassium 5.7 mEq/L 3.5 - 5.1 mEq/L High May 24, 2024 Bicarbonate 23 mEq/L 22 - 29 mEq/L - May 232024 Potassium 4.2 mEq/L 3.5 - 5.1 mEq/L - June 18, 2024 Chloride 101 mEq/L 96 - 108 mEq/L - May 232024 BUN/Creat Ratio 13.0 10.0 - 20.0 - June 18, 2024 Sodium 137 mEq/L 136 - 145 mEq/L - June 18, 2024 BUN 44 mg/dL 6 - 19 mg/dL High June 18, 2024 Creatinine, Serum 3.39 mg/dL 0.60 - 1.30 mg/dL High June 18, 2024 BUN, Post 13 mg/dL 6 - 19 mg/dL - June 18, 2024 URR, Calc 70 % 65 - 80 % - June 18 025 HD Adequacy Result Type Result Value Relevant Referen ce Range Interpretation Date eKt/V ([facility]) 0.80 No Reference Range Provided - April 23, 2024 wstdKt/V without residual 0.6 No Reference Range Provided - April 23, 2024 spKt/V ([place]) 1.04 No Reference Range Provided - April 23, 2024 wstdKt/V 0.6 No Reference Ran ge Provided - April 23, 2024 wstdKt/V, residual 0.0 No Reference Range Provided - April 23, 2024 spKt/V ([place]ird[place] II) 1.39 No Reference Range Provided - May 10, 2024 wstdKt/V, residual 0.0 No Reference Range Provided - May 10, 2024 wstdKt/V without residual 2.3 No Reference Range Provided - May 10, 2024 spKt/V Gotch 1.36 No Reference Ran ge Provided - May 10, 2024 wstdKt/V 2.3 No Reference Ran ge Provided - May 10, 2024 eKt/V ([place]) 1.16 No Reference Range Provided - May 10, 2024 Krt/V 0.00 No Reference Ran ge Provided - May 10, 2024 spKt/V ([place]augirdas II) 1.50 No Reference Range Provided - June 18, 2024 wstdKt/V, residual 0.0 No Reference Range Provided - June 18, 2024 wstdKt/V without residual 0.8 No Reference Range Provided - June 18, 2024 eKt/V ([place]) 1.28 No Reference Range Provided - June 18, 2024 wstdKt/V 0.8 No Reference Ran ge Provided - June 18, 2024 Bone/Mineral Result Type Result Value Relevant Referen ce Range Interpretation Date Magnesium 1.3 mg/dL 1.6 - 2.6 mg/dL Low April Corrected Ca x P Product 24 0 - - April 23, 2024 Ca x P Product 0 - April Phosphorus 2.5 mg/dL 2.6 - 4.5 mg/dL Low April Calcium, Total 8.6 mg/dL 8.4 - 10.2 mg/dL - 2024 Alkaline Phosphatase 54 U/L 35 - 104 U/L - 2024 PTH-Intact, Plasma 63 pg/mL 16 - 80 pg/mL - Apr Vitamin D 25 Hydroxy 48.2 ng/mL 30.0 - 100.0 ng/mL - April 23, 2024 Corrected Ca x P Product 30 0 - 54 - June 18 Magnesium 1.9 mg/dL 1.6 - 2.6 mg/dL - June 18, 2024 Ca x P Product 27 0 - 54 - May 232024 Calcium, Total 8.5 mg/dL 8.4 - 10.2 mg/dL - 2024 Phosphorus 3.2 mg/dL 2.6 - 4.5 mg/dL - June 18, 2024 PTH-Intact, Plasma 145 pg/mL 16 - 80 pg/mL High Feb ru2024 Liver/Nutrition Result Type Result Value Relevant Reference Range Interpre tation Date Albumin (BCG) 2.7 g/dL 3.5 - 5.2 g/dL Low April 23, 2024 SGPT (ALT) 8 U/L 7 - 52 U/L - April 23 eNPCR 0.67 No Reference Ran ge Provided - May 10, 2024 Albumin (BCG) 2.9 g/dL 3.5 - 5.2 g/dL Low Februar y 2024 SGPT (ALT) 10 U/L 7 - 52 U/L - June 18 025 Immunochemistry Result Type Result Value Relevant Reference Range Interpre tation Date HCV s/co ratio 0.02 0.00 - 0.79 - April 0 2024 Trace Elements Result Type Result Value Relevant Reference Range Interpre tation Date Aluminum 97 mcg/L 0 - 10 mcg/L High April 23, 2024 Aluminum 31 mcg/L 0 - 10 mcg/L High April 30, 2024 Infectious Diseases Result Type Result Value Relevant Referen ce Range Interpretation Date HCV Ab (anti-HCV) Nonreactive No Reference R margy Provided - April 23, 2024 Hep B Surface Ab (anti-HBs) 632 mIU/mL No Reference Range Provided - April 23, 2024 Hep B core Ab Total (anti-HBc) Negative No Reference Range Provided - April 23, 2024 Hep B Surface Ag (HBsAg) Negative No Reference Range Provided - June 18, 2024 DIALYSIS PRESCRIPTION Conventional Hemodialysis Data Element Value Order Date/Time June 18, 2024 Frequency 3X Week Treatment Days MonWedFri Dialyzer 160NRe Optiflux Treatment Time (Total Minutes) 195 min Blood Flow Rate (mL/min) 450 mL/min Dialysate Flow Rate Manual 500 Estimated Dry Weight 52 kg Dialysate Concentrate 2.0 K, 2.50 Ca, 1. 0 Mg, 100 Dextrose ([id number]) Sodium (mEq/L) 137 mEq/L Bicarb Machine Setting (mEq/L) 35 mEq/L Dialysis Access Hemodialysis-AV Alan t-Synthetic - Standard (PTFE), Left Upper Arm, Brachial Artery to Brachial Vein Access Placed on January 22, 2024 Arterial Needle Size 16g1 Venous Needle Size 16g1 IMMUNIZATIONS Vaccine Date Dose Route Status Moderna COVID-19 Vaccine, Bivalent, Booster February 01, 2022 0.5 mL Intramuscular Completed HEPLISAV-B, series 4 of October 02, 2021 20.0 mcg Intramu scular Completed HEPLISAV-B, series 3 of August 03, 2021 20.0 mcg Intram uscular Completed HEPLISAV-B, series 2 of July 04, 2021 20.0 mcg Intram uscular Completed HEPLISAV-B, series 1 of 4 May 31, 2021 20.0 mcg Int ramuscular Completed PNEUMOVAX May 03, 2021 0.5 mL Intramuscular Com pleted Moderna COVID-19 Vaccine, Do se 2 of June 22, 2020 0.5 mL Intramuscular Completed Moderna COVID-19 Vaccine, Do se 1 of May 25, 2020 0.5 mL Intramuscular Completed PREVNAR January 05, 2020 0.5 mL Intramuscular Com pleted TRANSPLANT WAITLIST STATUS No Information on Transplant Waitlist Status ADVANCE DIRECTIVES Directive Description Ordered By Effective Date Resuscitation status Full Code Srinivas Tanja Praneeth an 2024 DIALYSIS TREATMENTS Conventional Hemodialysis Date Pre-Treatment Vitals Post-Treatment Lizzie ls Duration (hr) BFR (mL/min) Dialysate Dialyzer Dialysis Access Meds Admin u 2024 Weight 55.00 kg Weight 52.20 kg 03:15:00 410 2.0 K, 2.50 Ca, 1.0 Mg, 100 Dextrose ([id number]) 160nre Optifl ux Blood Pressure-sitting 159/71 mmHg Blood Pressure-sit ting 126/59 mmHg Heart Rate 68 beats per minute Heart Rate 72 beats per minute Respiratory Rate 16 breaths per minute Respiratory Rate 16 breaths per minute Temperature 97.0 deg. F Temperature 97.4 deg. F June 21, 2024 Weight 55.70 kg Weight 54.00 kg 03:03:00 340 2.0 K, 2.50 Ca, 1.0 Mg, 100 Dextrose ([id number]) 160nre Optiflux Hemodialysis-AV Graft-Synthetic - Standard (PTFE), Left Upper Arm, Brachial Artery to Brachial Vein Access Placed on January 22, 2024 - Blood Pressure-sitting 160/85 mmHg Blood Pressure-sit ting 139/65 mmHg Heart Rate 70 beats per minute Heart Rate 64 beats per minute Respiratory Rate 18 breaths per minute Respiratory Rate 16 breaths per minute Temperature 97.3 deg. F Temperature 97.0 deg. F June 23, 2024 Weight 55.40 kg Weight 54.60 kg 03:16:00 350 2.0 K, 2.50 Ca, 1.0 Mg, 100 Dextrose ([id number]) 160nre Optiflux Hemodialysis-AV Graft-Synthetic - Standard (PTFE), Left Upper Arm, Brachial Artery to Brachial Vein Access Placed on January 22, 2024 - Blood Pressure-sitting 108/77 mmHg Blood Pressure-sit ting 177/71 mmHg Heart Rate 70 beats per minute Heart Rate 73 beats per minute Respiratory Rate 18 breaths per minute Respiratory Rate 18 breaths per minute Temperature 97.4 deg. F Temperature 97.4 deg. F
--- OUTSIDE RECORDS SUMMARY | 2024-06-23 22:20 | XMS_ITS | Encounter Summary ---
Author Organization [facility] Address [address] [place] [address] Phone Care Team Providers Care Solutions Manager Name Role Phone Marita Wetzel DO Primary Care Provider Unava ilable Encounter Details Date Type Department Care Team (Late st Contact Info) Description 04/18/2023 Documentation Only [facility] [address] [place] [phone] Jerod Adames DO [address] [place] [phone] Social History Tobacco Use Types Packs/Day Years [...] Only [facility] - Vascular Access Center [address] [place] [phone] documented as of this encounter Visit Diagnoses Not on filedocumented in this encounter Care Teams Solutions Manager Relationship Specialty Start Date End Date Marita Wetzel DO [address] [place] [id number] PCP - General Family Medicine 11/14/22 documented as of this encounter
--- OUTSIDE RECORDS SUMMARY | 2024-06-23 22:21 | XMS_ITS | Encounter Summary ---
Author Organization [facility] Address [address] [place] [address] Care Team Providers Care Quantitative Researcher Name Role Phone Marita Wetzel DO Primary Care Provider [phone] Encounter Details Date Type Department Care Team (Late st Contact Info) Description 05/30/2024 Lab Requisition [facility] - Main Lab [address] [place] [phone] Marily Gordillo MD [address] [place] [phone] Chronic embolism and thrombosis of unspecified vein; Acute kidney failure, unspecified (CMS/HCC) Social History Tobacco Use Types Packs/Day Years Used Date Smoking Tobacco: Never Assessed Comments Unknown Sex and Gender Information Value Date Recorded Sex Assigned at Not on file Legal Sex Female 9:12 PM EST Gender Identity Not on file Sexual Orientation Not on file documented as of this encounter Plan of Treatment Not on file documented as of this encounter Visit Diagnoses Diagnosis Chronic embolism and thrombosis of unspecified vein Acute kidney failure, unspecified (CMS/HCC) Acute kidney failure, unspecified documented in this encounter Care Teams Quantitative Researcher Relationship Specialty Start Date End Date Marita Wetzel DO [address], [place] PCP - General 01/09/23 documented as of this encounter
--- OUTSIDE RECORDS SUMMARY | 2024-06-23 22:21 | XMS_ITS | Clinical Summary ---
Author Organization [facility], Address [address] [place] [address] [place] [address] Phone Care Team Providers Care Billing Auditor Name Role Phone Marita Wetzel DO Primary [...] 300-349=8 units, 350-399=10 units. 04/11/20 23 Active Lantus SoloStar 100 UNIT/ML injection Inject [...] total) before bedtime. 120 tablet 11 10/10/19 24 Active Additional Information Patient not taking.Reported on 02/04/2024 ondansetron (Zofran) 4 MG tablet Take 1 tablet (4 mg total) by mouth every 8 (eight) hours if needed for nausea or vomiting 30 tablet 3 10/21/19 24 Active B complex-vitamin C-folic acid (NEPHRO-SHAY) 0.8 MG tablet Take 1 tablet by mouth 11/23/19 24 Active sertraline (ZOLOFT) 25 MG tablet Take 25 mg by mouth every morning 12/01/19 24 Active amLODIPine (NORVASC) 10 MG tablet Take 1 tablet (10 mg total) by mouth 1 (one) time each day 30 tablet 11 12/31/19 24 Active mycophenolate (MYFORTIC) 360 MG EC tablet Take 1 tablet (360 mg total) by mouth in the morning and 1 tablet (360 mg total) in the evening. 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 20447 mL 12 02/10/20 24 Active predniSONE 5 MG tablet Take 1.5 tablets (7.5 mg total) by mouth 1 (one) time each day 30 tablet 11 02/11/20 24 Active thiamine (VITAMIN B-1) 100 MG tablet Take 1 tablet (100 mg total) by mouth 1 (one) time each day 30 tablet 11 05/28/19 24 Active Problems Problem Noted Date Diagnosed Date [...] Encounters Date Type Department Care Team Description 06/21/2024 Treatment [facility], [address] [place] [address] Bernardo Doty MD End stage renal disease; Dependence on renal dialysis 06/18/2024 Refill [facility] [address] [place] [address] Srinivas Agrawal MD 06/10/2024 Telephone [facility] [address] [place] [phone] Hazel Zepeda NS port flush- pt at [facility] 05/25/2024 Telephone [facility] - Infusion Center [address] [place] [phone] Hazel Zepeda attempted to schedule port flush 05/24/2024 Orders Only [facility] [address] [address] Srinivas Agrawal MD 05/24/2024 Treatment [facility] [address] [place] [address] Bernardo Doty MD 05/10/2024 Orders Only [facility] [address] [address] Srinivas Agrawal MD 05/10/2024 Treatment [facility] [address] [place] [address] Bernardo Doty MD 2024 Orders Only [facility] [address] [address] Srinivas Agrawal MD 05/03/2024 Treatment [facility] [address] [place] [address] Candace Adam PA 04/30/2024 Orders Only [facility] [address] [address] Srinivas Agrawal MD 04/28/2024 Orders Only [facility] [address] [address] Srinivas Agrawal MD 04/26/2024 Treatment [facility] [address] [place] [address] Bernardo Doty MD 04/23/2024 Treatment [facility], [address] [place] [address] Candace Adam PA 04/23/2024 Orders Only [facility] [address] [place] [address] Srinivas Agrawal MD 04/20/2024 11:00 AM EST Office Visit [facility] [address] [place] [phone] 346 Srinivas Agrawal MD Kidney replaced by transplant (Primary Dx); History of immunosuppressive therapy; Personal history of immunosuppression therapy; Anemia in chronic kidney disease 04/17/2024 Documentation Only [facility] [address] [place] [phone] [address] Be[address]rix [place] 04/13/2024 Documentation Only [facility] [address] [place] [phone] 504 Bebe Hendrix [place] 04/06/2024 Documentation Only [facility] - [address] [place] [phone] 004 Anum Tom, RN anemia management -antony rivera from Last 3 Months Immunizations Name Administration [...] Only [facility] [address] [place] [address] [place] [address] Health Maintenance Due Date Last Done Comments [...] Date/Time Associated Diagnosis Comments HD KINETICS Routine 06/18/2024 POST CHEMISTRY Routine 06/18/2024 IMMUNO CHEMISTRY Routine 06/18/2024 CHEMISTRY Routine 06/18/2024 HEMATOLOGY Routine 06/18/2024 CHEMISTRY Routine 06/18/2024 HEMATOLOGY Routine 05/24/2024 CHEMISTRY Routine 05/24/2024 [facility] RESULTS Routine 05/10/2024 HD KINETICS Routine 05/10/2024 POST CHEMISTRY Routine 05/10/2024 CHEMISTRY Routine 05/10/2024 CHEMISTRY Routine 2024 HEMATOLOGY Routine 2024 TRACE ELEMENTS Routine 04/30/2024 CHEMISTRY Routine 04/30/2024 HEMATOLOGY Routine 04/28/2024 [facility] RESULTS Routine 04/23/2024 HD KINETICS Routine [...] control from Last 3 Months Results * HD KINETICS (06/18/2024) Only the most recent of3 resultswithin the time period is included. % Urea Reduction 70 65 - 80 % [facility] 06/18/2024 06/22/2024 9:5 5 AM EST Narrative Resulting Agency Comment Specimen source: Plasma us Srinivas Agrawal MD LAB BLOOD ORDERABLES Final Result [facility] See order comments or contact performing lab Unknown, [place] * POST CHEMISTRY (06/18/2024) Only the most recent of3 resultswithin the time period is included. BUN Post Dialysis 13 6 - 19 mg/dL [facility] 06/18/2024 06/22/2024 9:5 5 AM EST Narrative [facility] - 06/22/2024 Unless otherwise specified, test(s) performed at: [facility], [address] [place], [place] [id number] REAL ESTATE SALES AGENT: Dwayne Fuentes M.D. For any questions, please call customer service at FREQUENCY:MONTHLY Resulting Agency Comment Specimen source: Plasma Srinivas Agrawal MD LAB BLOOD ORDERABLES Final Result Performing Organization Address [facility] de Phone Number [facility] See order comments or contact performing lab Unknown, [place] * IMMUNO CHEMISTRY (06/18/2024) Only the most recent of2 resultswithin the time period is included. Hep B Surface Ag Negative Negative [facility] 06/18/2024 06/19/2024 11: 21 AM EST Narrative Resulting Agency Comment Specimen source: Serum Result [facility] Srinivas Agrawal MD LAB BLOOD ORDERABLES Final Result Performing Organization Address [facility] de Phone Number [employer] See order comments or contact performing lab Unknown, [place] * (ABNORMAL) HEMATOLOGY (06/18/2024) Only the most recent of5 resultswithin the time period is included. Hemoglobin 7.9(L) 12.0 - 16.0 g/dL [facility] Hemoglobin x 3 23.7(L) 36.0 - 48.0 % [facility] 06/18/2024 06/19/2024 12: 24 PM EST Narrative [facility] - 06/19/2024 Unless otherwise specified, test(s) performed at: [facility], [address] [place] [id number] REAL ESTATE SALES AGENT: Dwayne Fuentes M.D. For any questions, please call customer service at FREQUENCY:MONTHLY Resulting Agency Comment Specimen source: Blood Srinivas Agrawal MD LAB BLOOD ORDERABLES Final Result Performing Organization Address [facility]/[place] de Phone Number [facility] See order comments or contact performing lab Unknown, [place] * (ABNORMAL) [facility] Chemistry (06/18/2024) Only the most recent of8 resultswithin the time period is included. BUN 44(H) 6 - 19 mg/dL [facility] Creatinine 3.39(H) 0.60 - 1.30 mg/dL [facility] BUN/Creatinine Ratio 13.0 10.0 - 20.0 [facility] Sodium 137 136 - 145 mEq/L [facility] Potassium 4.2 3.5 - 5.1 mEq/L [facility] Chloride 101 96 - 108 mEq/L [facility] Bicarbonate (CO2) 23 22 - 29 mEq/L [facility] Calcium 8.5 8.4 - 10.2 mg/dL [facility] Corrected Calcium 9.4 8.4 - 10.2 mg/dL [facility] Comment: Corrected Calcium is not equivalent to measured Ionized Calcium. Phosphorus 3.2 2.6 - 4.5 mg/dL [facility] Calcium Phosphorus Product 27 0 - 54 [facility] Calcium Phosporus Product, Cor 30 0 - 54 [facility] ALT (SGPT) 10 7 - 52 U/L [facility] Albumin 2.9(L) 3.5 - 5.2 g/dL [facility] Magnesium 1.9 1.6 - 2.6 mg/dL [facility] Iron 99 30 - 160 mcg/dL [facility] UIBC 89(L) 155 - 355 mcg/dL [facility] TIBC 188 185 - 515 mcg/dL [facility] Iron Saturation (TSat) 53 20 - 55 % [facility] Ferritin 1,648(H) 10 - 291 ng/mL [facility] 06/18/2024 06/19/2024 11: 21 AM EST Narrative [facility] - 06/19/2024 Unless otherwise specified, test(s) performed at: [facility], [address] [place] [id number] REAL ESTATE SALES AGENT: Dwayne Fuentes M.D. For any questions, please call customer service at FREQUENCY:MONTHLY Resulting Agency Comment Specimen source: Serum Srinivas Agrawal MD LAB BLOOD ORDERABLES Edite d Result - Final [facility] See order comments or contact performing lab Unknown, [place] * [facility] HEMAL Lab Results (05/10/2024) Only the most recent of2 resultswithin the time period is included. WSTDKT/V 2.3 [facility] eKdrt/V 1.12 [facility] spKt/V Gotch 1.36 [facility] ge Center eKt/V Gotch 1.12 [facility] e Center eNPCR 0.67 [facility] eKt/V (T[place]all) 1.16 [facility] nPCR_HD 0.72 [facility] PCR 30.85 [facility] spKt/V (Daugirdas II) 1.39 [facility] 05/10/2024 05/10/2024 Hemal Ordering Provider LAB BLOOD ORDERABLES Final Result [facility] Contact Performing lab Unknown, [place] * (ABNORMAL) TRACE ELEMENTS (04/30/2024) Only the most recent of2 resultswithin the time period is included. Aluminum 31(H) 0 - 10 mcg/L [facility] Comment: This test was developed and its performance characteristics determined by [facility]. It has not been cleared or approved [...] 05/04/2024 Unless otherwise specified, test(s) performed at: [facility], [address] [place], [place] [id number] REAL ESTATE SALES AGENT: Dwayne Fuentes M.D. For any questions, please call customer service at FREQUENCY:OTHER Resulting Agency Comment Specimen source: Serum Srinivas Agrawal MD LAB BLOOD ORDERABLES Final Result [facility] See order comments or contact performing lab Unknown, [place] * SPECIAL CHEMISTRY (04/23/2024) Only the most recent of2 resultswithin the time period is included. Vitamin D, 25-OH, Total 48.2 30.0 - 100.0 ng/mL [facility] Comment: Please Note:? Effective February 17, 2023, the methodology for this test has changed to the [facility]. 04/23/2024 04/24/2024 3:5 5 PM EST Narrative Resulting Agency Comment Specimen source: Serum Srinivas Agrawal MD LAB BLOOD BANK TEST ORDERA BLES Final Result [facility] See order comments or contact performing lab [place], [place] * SPECIMEN STATUS REPORT (04/20/2024 12:00 AM EST) Pathologist [facility] Specimen Status [facility] Comment: No Urine Received No Urine Received Test not performed. No urine specimen received. ?TEST: ??[id number] ??UA/M w/rflx Culture, Routine ? [id number] ??Prot+CreatU (Random) 04/20/2024 04/20/2024 Comment:Blood, Venou Srinivas Agrawal MD LAB BLOOD ORDERABLES Final Result Performing Organization Address City/[facility]/ZIP Co de Phone Number [facility] [place] [address] [place] [phone] * (ABNORMAL) Tacrolimus level (04/20/2024 12:00 AM EST) Pathologist [facility] Tacrolimus Lvl 32.3(HH) 2.0 - 20.0 ng/mL [facility] Comment: ?Trough (immediately following ?transplant) ? 15.0 ?Trough (steady state, 2 weeks or ?more after transplant): ?3.0 - 8.0 ?Performed by LC-MS/MS technology. Patient drug level exceeds published reference range. ??Evaluate clinically for signs of potential toxicity. Blood (Blood, Venous) 04/20/2024 04/20/2024 Comment:Blood, Venou Narrative [facility] - 04/27/2024 4:06 PM EST Test(s) [id number] ([id number]), Blood was developed and its performance characteristics determined by [facility]. It has not been cleared or approved by the Food and Drug Administration. Srinivas Agrawal MD LAB BLOOD ORDERABLES Final Result Performing Organization Address [facility] Co de Phone Number [facility] [address] [place] [address] * Hepatitis C antibody (04/20/2024 12:00 AM EST) Hep C Virus Ab Non Reactive Non Reactive [facility] [place] Comment: HCV antibody alone does not differentiate between previously resolved infection and active infection. Equivocal and Reactive HCV antibody results should be followed up with an HCV RNA test to support the diagnosis of active HCV infection. Blood (Blood, Venous) 04/20/2024 04/20/2024 Comment:Blood, Venou Srinivas Agrawal MD LAB BLOOD ORDERABLES Final Result Performing Organization Address [facility] Co de Phone Number [facility] [address], [address] [place] [address] * (ABNORMAL) Iron Panel (Fe, TIBC, TSAT) (04/20/2024 12:00 AM EST) TIBC 109(LL) 250 - 450 ug/dL [facility] UIBC 90(L) 118 - 369 ug/dL [facility] [place] Iron 19(L) 27 - 139 ug/dL [facility] Iron Saturation (TSat) 17 15 - 55 % [facility] Blood (Blood, Venous) 04/20/2024 04/20/2024 Comment:Blood, Venou Srinivas Agrawal MD LAB BLOOD ORDERABLES Final Result Performing Organization Address City/[facility]/ZIP Co de Phone Number [facility] [place] [address] [place] [address] * Hepatitis B core antibody, IgM (04/20/2024 12:00 AM EST) Hep B Core IgM Negative Negative [facility] [place] Blood (Blood, Venous) 04/20/2024 04/20/2024 Comment:Blood, Venou Srinivas Agrawal MD LAB BLOOD ORDERABLES Final Result Performing Organization Address [facility] Co de Phone Number [facility] [address], [address] [place] [address] * Hepatitis B surface antibody (04/20/2024 12:00 AM EST) Hepatitis B Surface Ab 1,682.0 Immunity>1 0 mIU/mL [facility] [place] Comment: Results confirmed on dilution. ??Status of Immunity ? Anti-HBs Level ? Inconsistent with Immunity ?0.0 - 10.0 Consistent with Immunity ? >10.0 Blood (Blood, Venous) 04/20/2024 04/20/2024 Comment:Blood, Venou Srinivas Agrawal MD LAB BLOOD ORDERABLES Final Result Performing Organization Address [facility]/ZIP Co de Phone Number [facility] Angelica Ravi [address], [address] [place] [address] * Hepatitis B surface antigen (04/20/2024 12:00 AM EST) Pathologist [facility] Hep B Surface Ag Negative Negative [facility] Blood (Blood, Venous) 04/20/2024 04/20/2024 Comment:Blood, Venou Srinvias Agrawal MD LAB BLOOD ORDERABLES Final Result Performing Organization Address [facility]/[place] de Phone Number [facility] Angelica Ravi [address], [address] [place] [address] * (ABNORMAL) CBC and Differential (04/20/2024 12:00 AM EST) WBC 11.3(H) 3.4 - 10.8 x10E3/uL [facility] RBC 2.92(L) 3.77 - 5.28 x10E6/uL [facility] Hemoglobin 7.9(L) 11.1 - 15.9 g/dL [facility] Hematocrit 27.3(L) 34.0 - 46.6 % [facility] MCV 94 79 - 97 fL [facility] MCH 27.1 26.6 - 33.0 pg [facility] MCHC 28.9(L) 31.5 - 35.7 g/dL [facility] RDW 15.2 11.7 - 15.4 % [facility] Platelets 193 150 - 450 x10E3/uL [facility] Neutrophils Relative 89 Not Estab. % [facility] Lymphocytes Relative 3 Not Estab. % [facility] Monocytes 7 Not Estab. % [facility] Eosinophils Relative 0 Not Estab. % [facility] Basophils Relative 0 Not Estab. % [facility] Neutrophils Absolute 10.0(H) 1.4 - 7.0 x10E3/uL [facility] Lymphocytes Absolute 0.4(L) 0.7 - 3.1 x10E3/uL [facility] Monocytes Absolute 0.8 0.1 - 0.9 x10E3/uL [facility] Eosinophils Absolute 0.0 0.0 - 0.4 x10E3/uL [facility] Basophils Absolute 0.0 0.0 - 0.2 x10E3/uL [facility] Immature Granulocytes 1 Not Estab. % [facility] Immature Grans (Absolute) 0.1 0.0 - 0.1 x10E3/uL [facility] Blood (Blood, Venous) 04/20/2024 04/20/2024 Comment:Blood, Venou us Srinivas Agrawal MD LAB BLOOD ORDERABLES Final Result [facility] [address] [place] [address] * ALT (04/20/2024 12:00 AM EST) ALT (SGPT) 8 0 - 32 IU/L [facility] Blood (Blood, Venous) 04/20/2024 04/20/2024 Comment:Blood, Venou Srinivas Agrawal MD LAB BLOOD ORDERABLES Final Result Performing Organization Address [facility]/[place] de Phone Number [facility] [address] [place] [address] * AST (04/20/2024 12:00 AM EST) AST (SGOT) 9 0 - 40 IU/L [facility] [place] Blood (Blood, Venous) 04/20/2024 04/20/2024 Comment:Blood, Venou Result [facility] Srinivas Agrawal MD LAB BLOOD ORDERABLES Final Result Performing Organization Address [facility] de Phone Number [facility] [place] [address] [place] [address] * (ABNORMAL) Hemoglobin A1c (04/20/2024 12:00 AM EST) Hemoglobin A1C 6.1(H) 4.8 - 5.6 % [facility] Comment: ? Prediabetes: 5.7 - 6.4 ? Diabetes: >6.4 ? Glycemic control for adults with diabetes: <7.0 Blood (Blood, Venous) 04/20/2024 04/20/2024 Comment:Blood, Venou Srinivas Agrawal MD LAB BLOOD ORDERABLES Final Result Performing Organization Address [facility]/[place] de Phone Number [facility] [place] [address] [place] [address] * (ABNORMAL) Ferritin (04/20/2024 12:00 AM EST) Pathologist [facility] Ferritin 3,884(H) 15 - 150 ng/mL [facility] Comment: Results confirmed on dilution. Blood (Blood, Venous) 04/20/2024 04/20/2024 Comment:Blood, Venou Srinivas Agrawal MD LAB BLOOD ORDERABLES Final Result [facility] [address] [place] [address] * (ABNORMAL) CK (04/20/2024 12:00 AM EST) Pathologist [facility] Creatine Kinase (CK/CPK) 9(L) 32 - 182 U/L [facility] Blood (Blood, Venous) 04/20/2024 04/20/2024 Comment:Blood, Venou Srinivas Agrawal MD LAB BLOOD ORDERABLES Final Result [facility] [place] [address] [place] [address] * (ABNORMAL) Renal Function Panel (04/20/2024 12:00 AM EST) Pathologist [facility] Glucose 187(H) 70 - 99 mg/dL [facility] BUN 38(H) 8 - 27 mg/dL [facility] Creatinine 3.26(H) 0.57 - 1.00 mg/dL [facility] eGFR CKD-EPI CR 2020 15(L) >59 mL/min/1.7 3 [facility] BUN/Creatinine Ratio 12 12 - 28 [facility] Sodium 143 134 - 144 mmol/L [facility] Potassium 3.8 3.5 - 5.2 mmol/L [facility] Chloride 110(H) 96 - 106 mmol/L [facility] Bicarbonate (CO2) 17(L) 20 - 29 mmol/L [facility] Calcium 9.0 8.7 - 10.3 mg/dL [facility] Albumin 2.9(L) 3.9 - 4.9 g/dL [facility] Phosphorus 2.1(L) 3.0 - 4.3 mg/dL [facility] Blood (Blood, Venous) 04/20/2024 04/20/2024 Comment:Blood, Venou Srinivas Agrawal MD LAB BLOOD ORDERABLES Final Result [facility] [place] [address] [place] [address] from Last 3 Months Insurance [facility] MEDICARE MEDICARE [facility] Care Teams Billing Auditor Relationship Specialty Start Date End Date Marita Wetzel DO [address] [place] [id number] PCP - General Family Medicine 11/14/22
--- OUTSIDE RECORDS SUMMARY | 2024-06-23 22:21 | XMS_ITS | Data Portability ---
Author Organization [place] - Jonathan Campbell [facility] Address [address] [place] [address] Assessment Encounter Date Assessment Date Assessment LastModified by Organization Details LastModified Time 04/06/2024 04/06/2024 63-year-old femsylwia ross presents today for follow-up evaluation status post CRPP left subcapital femoral neck fracture on February 11, 2024 who is currently at group home facility and noted some pain developing over [...] Portions of this note were generated by [facility]. Errors of emotional disabilities teacher may occur- please feel free to reach out with any corrections or clarifications you may require. Time spent face to face with patient: 15 minutes Copy sent with patient. Not available 05/10/2024 12:39:52 Plan of Treatment Reminders Order Date Submit Date Provider Last Modified By Organization Details Last Modified Time Details Appointments RECHECK 15 2024 01:45P Manan Cristobal MD Not available Not available Not available Lab None recorded . Referral None recorded . Procedures None recorded . Surgeries None recorded . Imaging XR, hip + pelvis, unilater al, 2 or 3 view - 311 2v left hip and ap pelvis global 2024 025 [facility], [address], [place], [address], 05/10/2024 13:03:52 XR, hip + pelvis, unilater al, 2 or 3 view - rm.308 2 v of left hip 2023 024 [email or web address] [facility], [address], [address], [place], [address], 04/06/2024 11:35:30 Medication Orders None recorded . Patient TargetsNo targets recorded. Patient InstructionsNo instructions recorded. Reason for Referral None Reported. Results Created Date Observation Date Name Description Value Unit Range Abnormal Flag Note LastModifiedBy Organization Detail LastModifiedTime 04/06/20 24 04/06/2024 XR, hip + pelvi s, unila teral , 2 or 3 view http:/ [email or web address] ?Encry pted=s hABrooklynno YD8dLq bEUv6g %2BXZw aYqtaq 0bqfl% 2Fg9IQ a4ajBk vP9nXo QUaueC m3YtLR FvZlgJ JJ8mAn HZtai3 9u6722 AC0Kqb n6HWaG jKiQtr MwF INTERFACE [facility] [address], [place], [address], 04/06/2024 10:47:38 04/06/20 24 04/06/2024 XR, hip + pelvi s, unila teral , 2 or 3 view http:/ [email or web address] ?Encry pted=s hAaTro YD8dLq bEUv6g %2BXZw aYqtaq 0bqfl% 2Fg9IQ a4ajBk vP9nXo QUaueC m3YtLR FvZlgJ JJ8mAn HZtai3 3j8616 AC0Kqb n6HWaG jKiQtr MwF INTERFACE [facility] [address], [place], [address], 04/06/2024 10:47:40 05/10/19 25 05/10/2024 XR, hip + pelvi s, unila teral , 2 or 3 view http:/ [email or web address] ?Encry pted=s hAaTro YD8dLq bEUv6g %2BXZw aYqtaq 0bqfl% 2Fg9IQ a4ajBk vP9nXo QUaueC m3YtLR FvZlgJ JJ8mAn HZtai3 5n6371 AC0Kqb 3uAUqe kKiQtr MwF INTERFACE [facility] [address], [place], [address], 05/10/2024 11:31:26 05/10/19 25 05/10/2024 XR, hip + pelvi s, unila teral , 2 or 3 view http:/ [email or web address] ?Encry pted=s hAaTro YD8dLq bEUv6g %2BXZw aYqtaq 0bqfl% 2Fg9IQ a4ajBk vP9nXo QUaueC m3YtLR FvZlgJ JJ8mAn HZtai3 3n1977 AC0Kqb 3uAUqe kKiQtr MwF INTERFACE [facility] [address], [place], [address], 05/10/2024 11:31:28 Result Notes None recorded. Problems Name Problem SNOMED Code Status Onset Date Resolution Date Notes Provider Name and Address Organization Details Recorded Time Fracture of neck of left femur Active 024 Bayron Nguyễn PA-C [address], [place], [address] , [facility] 4 08:12:45 Closed fracture of hip 337430281 Active [facility] 5 11:00:31 Problem Notes None recorded. Procedures Surgical History Date Name Laterality Status Provider Name and Address Organization Details Recorded Time 4 procedure on hip completed VINI MARVIN [facility] 05/10/2024 11:30:03 Imaging Results Imaging Date Name Status LastModified by Organiz ation Details LastModified Time 04/06/2024 XR, hip + pelvis, unilateral , 2 or 3 view completed [facility] [address], [place], [address], 04/06/2024 10:47:38 04/06/2024 XR, hip + pelvis, unilateral , 2 or 3 view completed [facility] [address], [place], [address], 04/06/2024 10:47:40 05/10/2024 XR, hip + pelvis, unilateral , 2 or 3 view completed [facility] [address], [place], [address], 05/10/2024 11:31:26 05/10/2024 XR, hip + pelvis, unilateral , 2 or 3 view completed [facility] [address] [facility] [address], [place], [address], 05/10/2024 11:31:28 Procedure Notes None recorded. Medical Equipment None Reported. Allergies Allergen ID Allergen Name Allergen Category Reaction Reaction Severity Criticality Documentation Date Start Date Code Code System Note Provider Name and Address Organization Details Recorded Time 294648 codeine medicatio n Not available Not available Not available 05/10/[address] [facility] [facility] 11:23:18 446129 oxycodone medicatio n Not available Not available Not available 05/10/[address] [facility] 11:23:22 Medications Name Sig Start Date [...] Updated DateTime 04/06/2024 167.64 cm 18.7 kg/m2 99751.71 g dar keenan [facility] 04/06/2024 11:02:27 Date Recorded Body height Provider Name an d Address Organization Details Last Updated DateTime 05/10/2024 167.64 cm VINI MARVIN [facility] 05/10/2024 11:22:50 Social History None recorded. Functional Status None recorded. Mental Status None recorded. Family History Nothing Reported. Medical History Condition Response Coronary Artery Disease N Anxiety/Depression Y Emphysema N COPD N Pacemaker N Vascular Disease N Heart Trouble N Gastrointestinal Disease N Autoimmune disease N Inflammatory Joint disease Y Orthotics N Arthritis N Blood Clot N Acid Reflux (GERD) Y Cancer N Stroke N Circulation Problems N Rheumatoid Arthritis N Arrhythmia N Headaches N Fibromyalgia N Allergies/Hayfever N Breathing or lung disorders N Nerve Disorders N Thyroid Problems N Kidney/Bladder Problems Y Anemia Y Heart Attack (PR) N Cholesterol Y Diabetes Y Bleeding Disorder N Seizures/Epilepsy N AIDS/HIV N Congestive Heart Failure (CHF) N Asthma N Peripheral Vascular Disease N Sleep Apnea N Hepatitis N Heart Disease N Pulmonary Embolism N Hypertension Y Osteoporosis N Gynecological HistoryNo gynecological history recorded. Obstetrics History GPAL:G 0 P 0 0 0 0 Past Encounters Encounter ID Performer Location Encounter Start Date Encounter Closed Date Diagnosis/Indication Diagnosis SNOMED-CT Code Diagnosis ICD10 Code Diagnosis Note [id number] [facility] [address] [place] [address] 04/06/2024 10:29:00 04/28/2024 12:58:22 Fracture of neck of left femur 6094999051 7108 S72.002A Fracture o f bone of hip region 304258329 M80.052A Closed fra cture proximal femur, subcapital, Garden grade II 739637973 S72.012A [id number] MD MISHA [facility] - [facility] [address] [place] [address] 05/10/2024 11:04:50 05/10/2024 12:44:22 Closed fracture of hip 278330191 S72.002A Health Concerns Section Related Observation LastModified by Organization Detai ls LastModified Time None Recorded Concern Status LastModified by Organization Details LastModified Time None Recorded Advance Directives Directive None Recorded Payers Encounter Date Sequence Insurance Name Policy Number Policy Engle Covered Member ID Engle Member ID Guarantor Name 04/06/2024 1 [place]: [facility] [id number] Alix Sharp 05/10/2024 1 [place] [facility] [id number] [facility] Notes Date Note Type Note Provider Name [...] for evaluation. She is currently at a group home facility [facility]ON[facility] [address], [place], [address], [facility] [place] [facility] 04/06/2024 11:10:49 05/10/2024 text/html [...] 02-11-2024. 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 [place] [facility] 05/10/2024 12:40:43 OBGyn Episode No OBEpisode recorded.
--- OUTSIDE RECORDS SUMMARY | 2024-06-23 22:21 | XMS_ITS | Encounter Summary ---
Author Organization [facility] Address [address] [place] [address] Care Team Providers Care [employer] Structure Builder And Servicer Name Role Phone Marita Wetzel DO Primary Care Provider [phone]- [phone] Encounter Details Date Type Department Care Team (Late st Contact Info) Description 05/15/[address] [facility] [address] [facility] [place] [phone] Marily Gordillo MD [address] [place] [phone] Chronic embolism and thrombosis of unspecified vein; [...] unspecified documented in this encounter Care Teams Clay Structure Builder And Servicer Relationship Specialty Start Date End Date Marita Wetzel DO [address] [place], [place] PCP - General 01/09/23 documented as of this encounter
--- OUTSIDE RECORDS SUMMARY | 2024-06-23 22:21 | XMS_ITS | Encounter Summary ---
Author Organization [facility], Address [address] [place] [address] Phone Care Team Providers Care [employer]man Name Role Phone Marita Wetzel DO Primary Care Provider Unava ilable Encounter Details Date Type Department Care Team (Late st Contact Info) Description 04/02/2023 Documentation Only [facility] Dr [address] [place] [phone] Bernardo Doty MD [address] [place] [address] [place] [address] Social History Tobacco Use Types [...] Only [facility] [address] [place] [address] [place] [address] documented as of this encounter Visit Diagnoses Not on filedocumented in this encounter Care Teams [employer] Relationship Specialty Start Date End Date Marita Wetzel DO [address] [place] [address] PCP - General Family Medicine 7/27/23 documented as of this encounter
--- OUTSIDE RECORDS SUMMARY | 2024-06-23 22:21 | XMS_ITS | Continuity of Care Document ---
Author Name [facility] Organization [facility] Care Team Providers Care Telecommunication Operator Name Role Phone [facility] Unavailable Unavailable Problems Combined list of problems [...] LUPIN PHARMACEU, 1000 ea. BOTTLE Cancele d [id number] : 2023 0 Pharmac y Data Transac tion Service Facilit y AMLODIPINE BESYLATE (amlodipine besylate), 10 MG, TABLET, ORAL, LUPIN PHARMACEU, 1000 ea. BOTTLE Active [id number] 3 2022 30 Pharmac y Data Transac tion Service Facilit y AMLODIPINE BESYLATE (amlodipine besylate), 10 MG, TABLET, ORAL, LUPIN PHARMACEU, 1000 ea. BOTTLE Active [id number] 4 2023 30 Pharmac y Data Transac tion Service Facilit y AMLODIPINE BESYLATE (amlodipine besylate), 10 MG, TABLET, ORAL, LUPIN PHARMACEU, 1000 ea. BOTTLE Active [id number] 4 2023 30 Pharmac y Data Transac tion Service Facilit y AMLODIPINE BESYLATE (amlodipine besylate), 10 MG, TABLET, ORAL, LUPIN PHARMACEU, 1000 ea. BOTTLE Active [id number] 4 2023 30 Pharmac y Data Transac tion Service Facilit y AMLODIPINE BESYLATE (amlodipine besylate), 10 MG, TABLET, ORAL, LUPIN PHARMACEU, 1000 ea. BOTTLE Active [id number] 4 2023 30 Pharmac y Data Transac tion Service Facilit y CARVEDILOL (carvedilol ), 25 MG, TABLET, ORAL, ADVAGEN PHARMA, 500 ea. BOTTLE Cancele d [id number] : 2023 0 Pharmac y Data Transac tion Service Facilit y CARVEDILOL (carvedilol ), 25 MG, TABLET, ORAL, ADVAGEN PHARMA, 500 ea. BOTTLE Active [id number] 3 2022 60 Pharmac y Data Transac tion Service Facilit y CARVEDILOL (carvedilol ), 25 MG, TABLET, ORAL, ADVAGEN PHARMA, 500 ea. BOTTLE Active [id number] 2023 60 Pharmac y Data Transac tion Service Facilit y CARVEDILOL (carvedilol ), 25 MG, TABLET, ORAL, ADVAGEN PHARMA, 500 ea. BOTTLE Active [id number] 4 2023 60 Pharmac y Data Transac tion Service Facilit y CARVEDILOL (carvedilol ), 25 MG, TABLET, ORAL, ADVAGEN PHARMA, 500 ea. BOTTLE Active [id number] 4 2023 60 Pharmac y Data Transac tion Service Facilit y CARVEDILOL (carvedilol ), 25 MG, TABLET, ORAL, ADVAGEN PHARMA, 500 ea. BOTTLE Active [id number] 4 2023 60 Pharmac y Data Transac tion Service Facilit y CLONIDINE HCL (clonidine HCl), 0.3 MG, TABLET, ORAL, XD NutritionCAR, 100 ea. BOTTLE Active [id number] 4 2023 60 Pharmac y Data Transac tion Service Facilit y ENVARSUS XR (tacrolimus ), 1 MG, TAB ER 24H, ORAL, VELOXIS PHARMAC, 30 ea. BOTTLE Cancele d [id number] : 2023 0 Pharmac y Data Transac tion Service Facilit y ENVARSUS XR (tacrolimus ), 1 MG, TAB ER 24H, ORAL, VELOXIS PHARMAC, 30 ea. BOTTLE Active [id number] 2023 330 Pharmac y Data Transac tion Service Facilit y ENVARSUS XR (tacrolimus ), 1 MG, TAB ER 24H, ORAL, VELOXIS PHARMAC, 30 ea. BOTTLE Active [id number] 4 2023 90 Pharmac y Data Transac tion Service Facilit y FLUCONAZOLE (fluconazol e), 150 MG, TABLET, ORAL, ZYDUS PHARMACEU, 12 ea. BLIST PACK Active [id number] 4 2023 1 Pharmac y Data Transac tion Service Facilit y FOLIC ACID (folic acid), 1 MG, TABLET, ORAL, LEADING PHARMA, 1000 ea. BOTTLE Cancele d [id number] : 2023 0 Pharmac y Data Transac tion Service Facilit y FOLIC ACID (folic acid), 1 MG, TABLET, ORAL, LEADING PHARMA, 1000 ea. BOTTLE Active [id number] 2022 30 Pharmac y Data Transac tion Service Facilit y FOLIC ACID (folic acid), 1 MG, TABLET, ORAL, LEADING PHARMA, 1000 ea. BOTTLE Active [id number] 2023 30 Pharmac y Data Transac tion Service Facilit y FOLIC ACID (folic acid), 1 MG, TABLET, ORAL, LEADING PHARMA, 1000 ea. BOTTLE Active [id number] 4 2023 30 Pharmac y Data Transac tion Service Facilit y FOLIC ACID (folic acid), 1 MG, TABLET, ORAL, LEADING PHARMA, 1000 ea. BOTTLE Active [id number] 2023 30 Pharmac y Data Transac tion Service Facilit y FOSFOMYCIN TROMETHAMIN E (fosfomycin tromethamin e), 3 G, PACKET, ORAL, [employer] 1 ea. PACKET Cancele d [id number] : 2022 0 Pharmac y Data Transac tion Service Facilit y HUMALOG (INSULIN LISPRO), 100 U/ML, CARTRIDGE, SUB-Q, [employer] 3 ml CARTRIDGE Cancele d [id number] : 2022 0 Pharmac y Data Transac tion Service Facilit y HYDRALAZINE HCL (hydralazin e HCl), 25 MG, TABLET, ORAL, AVET PHARMACEUT, 100 ea. BOTTLE Active [id number] 3 2022 90 Pharmac y Data Transac tion Service Facilit y HYDRALAZINE HCL (hydralazin e HCl), 25 MG, TABLET, ORAL, AVET PHARMACEUT, 100 ea. BOTTLE Active [id number] 4 2023 90 Pharmac y Data Transac tion Service Facilit y HYDROXYZINE PAMOATE (hydroxyzin e pamoate), 25 MG, CAPSULE, ORAL, AMNEAL PHARMACE, 100 ea. BOTTLE Active [id number] 4 2023 30 Pharmac y Data Transac tion Service Facilit y INSULIN GLARGINE-YF GN (insulin glargine-yf gn), 100/ML (3), INSULN PEN, SUBCUT, [employer], 3 ml SYRINGE Cancele d [id number] : 2023 0 Pharmac y Data Transac tion Service Facilit y INSULIN LISPRO KWIKPEN U-100 (insulin lispro), 100/ML, INSULN PEN, SUBCUT, [employer] 3 ml SYRINGE Cancele d [id number] : 2023 0 Pharmac y Data Transac tion Service Facilit y INSULIN LISPRO KWIKPEN U-100 (insulin lispro), 100/ML, INSULN PEN, SUBCUT, [employer] 3 ml SYRINGE Cancele d [id number] 4 [id number] : 2023 0 Pharmac y Data Transac tion Service Facilit y INSULIN LISPRO KWIKPEN U-100 (insulin lispro), 100/ML, INSULN PEN, SUBCUT, [employer] 3 ml SYRINGE Active [id number] 4 2023 15 Pharmac y Data Transac tion Service Facilit y INSULIN LISPRO KWIKPEN U-100 (insulin lispro), 100/ML, INSULN PEN, SUBCUT, [employer] 3 ml SYRINGE Active [id number] 4 2023 15 Pharmac y Data Transac tion Service Facilit y LANSOPRAZOL E (lansoprazo le), 30 MG, CAPSULE DR, ORAL, [employer], 30 ea. BOTTLE Active [id number] 3 2022 60 Pharmac y Data Transac tion Service Facilit y LANSOPRAZOL E (lansoprazo le), 30 MG, CAPSULE DR, ORAL, CABIR[employer], 30 ea. BOTTLE Active [id number] 4 2023 60 Pharmac y Data Transac tion Service Facilit y LANTUS (INSULIN GLARGINE,[facility].REC.ANLOG ), 100 U/ML, VIAL, SUB-Q, AVENTIS PHARM, 10 ml VIAL Active [id number] 4 2023 10 Pharmac y Data Transac tion Service Facilit y LANTUS (INSULIN GLARGINE,[facility].REC.ANLOG ), 100 U/ML, VIAL, SUB-Q, AVENTIS PHARM, 10 ml VIAL Cancele d [id number] : 2023 0 Pharmac y Data Transac tion Service Facilit y LANTUS SOLOSTAR (INSULIN GLARGINE,[facility].REC.ANLOG ), 100/ML (3), INSULN PEN, SUB-Q, SANOFI-AVEN TIS, 3 ml SYRINGE Cancele d [id number] 4 [id number] : 2023 0 Pharmac y Data Transac tion Service Facilit y LANTUS SOLOSTAR (INSULIN GLARGINE,[facility].REC.ANLOG ), 100/ML (3), INSULN PEN, SUB-Q, SANOFI-AVEN TIS, 3 ml SYRINGE Cancele d [id number] : 2023 0 Pharmac y Data Transac tion Service Facilit y LOKELMA (sodium zirconium cyclosilica te), 10 G, POWD PACK, ORAL, ASTRAZENECA , 30 ea. PACKET Active [id number] 4 2023 2 Pharmac y Data Transac tion Service Facilit y LOKELMA (sodium zirconium cyclosilica te), 10 G, POWD PACK, ORAL, ASTRAZENECA , 30 ea. PACKET Cancele d [id number] : 2023 0 Pharmac y Data Transac tion Service Facilit y LOKELMA (sodium zirconium cyclosilica te), 10 G, POWD PACK, ORAL, ASTRAZENECA , 30 ea. PACKET Cancele d [id number] : 2023 0 Pharmac y Data Transac tion Service Facilit y MYCOPHENOLI C ACID (mycophenol ate sodium), 360 MG, TABLET DR, ORAL, [email or web address], 120 ea. BOTTLE Active [id number] 4 2023 120 Pharmac y Data Transac tion Service Facilit y MYCOPHENOLI C ACID (mycophenol ate sodium), 360 MG, TABLET DR, ORAL, ADVAGEN PHARMA, 120 ea. BOTTLE Active [id number] 4 2023 180 Pharmac y Data Transac tion Service Facilit y PANTOPRAZOL E SODIUM (PANTOPRAZO LE SODIUM), 40 MG, TABLET DR, ORAL, MYLAN, 1000 ea. BOTTLE Cancele d [id number] : 2023 0 Pharmac y Data Transac tion Service Facilit y PANTOPRAZOL E SODIUM (PANTOPRAZO LE SODIUM), 40 MG, TABLET DR, ORAL, MYLAN, 1000 ea. BOTTLE Active [id number] 2023 30 Pharmac y Data Transac tion Service Facilit y PANTOPRAZOL E SODIUM (PANTOPRAZO LE SODIUM), 40 MG, TABLET DR, ORAL, MYLAN, 1000 ea. BOTTLE Active [id number] 4 2023 30 Pharmac y Data Transac tion Service Facilit y PANTOPRAZOL E SODIUM (PANTOPRAZO LE SODIUM), 40 MG, TABLET DR, ORAL, MYLAN, 1000 ea. BOTTLE Active [id number] 2023 30 Pharmac y Data Transac tion Service Facilit y PREDNISONE (prednisone ), 10 MG, TABLET, ORAL, MYLAN, 1000 ea. BOTTLE Active [id number] 2023 42 Pharmac y Data Transac tion Service Facilit y PREDNISONE (prednisone ), 10 MG, TABLET, ORAL, NOVITIUM/AN I PH, 1000 ea. BOTTLE Cancele d [id number] : 2023 0 Pharmac y Data Transac tion Service Facilit y PREDNISONE (prednisone ), 2.5 MG, TABLET, ORAL, STRIDES PHARMA, 100 ea. BOTTLE Active [id number] 4 2023 90 Pharmac y Data Transac tion Service Facilit y PREDNISONE (prednisone ), 5 MG, TABLET, ORAL, MYLAN, 1000 ea. BOTTLE Cancele d [id number] : 2023 0 Pharmac y Data Transac tion Service Facilit y PREDNISONE (prednisone ), 5 MG, TABLET, ORAL, MYLAN, 1000 ea. BOTTLE Active [id number] 2023 24 Pharmac y Data Transac tion Service Facilit y PREDNISONE (prednisone ), 5 MG, TABLET, ORAL, MYLAN, 1000 ea. BOTTLE Active [id number] 2023 45 Pharmac y Data Transac tion Service Facilit y PREDNISONE (prednisone ), 5 MG, TABLET, ORAL, MYLAN, 1000 ea. BOTTLE Active [id number] 4 2023 25 Pharmac y Data Transac tion Service Facilit y PREDNISONE (prednisone ), 5 MG, TABLET, ORAL, MYLAN, 1000 ea. BOTTLE Active [id number] 2023 45 Pharmac y Data Transac tion Service Facilit y PREDNISONE (prednisone ), 5 MG, TABLET, ORAL, MYLAN, 1000 ea. BOTTLE Active [id number] 4 2023 45 Pharmac y Data Transac tion Service Facilit y PROCRIT (EPOETIN ELSA), 56917 U/ML, VIAL, INJECTION, ORTHO BIOTECH, 1 ml VIAL Cancele d [id number] 4 [id number] : 2023 0 Pharmac y Data Transac tion Service Facilit y PROCRIT (EPOETIN ELSA), 64927 U/ML, VIAL, INJECTION, ORTHO BIOTECH, 1 ml VIAL Cancele d [id number] 4 [id number] : 2023 0 Pharmac y Data Transac tion Service Facilit y PROCRIT (EPOETIN ELSA), 96613 U/ML, VIAL, INJECTION, ORTHO BIOTECH, 1 ml VIAL Cancele d [id number] : 2023 0 Pharmac y Data Transac tion Service Facilit y PROCRIT (EPOETIN ELSA), 22747 U/ML, VIAL, INJECTION, ORTHO BIOTECH, 1 ml VIAL Active [id number] 4 2023 8 Pharmac y Data Transac tion Service Facilit y PROCRIT (EPOETIN ELSA), 40941 U/ML, VIAL, INJECTION, ORTHO BIOTECH, 1 ml VIAL Active [id number] 4 2023 8 Pharmac y Data Transac tion Service Facilit y PROCRIT (EPOETIN ELSA), 75057 U/ML, VIAL, INJECTION, ORTHO BIOTECH, 1 ml VIAL Cancele d [id number] 4 [id number] : 2023 0 Pharmac y Data Transac tion Service Facilit y SERTRALINE HCL (sertraline HCl), 25 MG, TABLET, ORAL, [employer] 90 ea. BOTTLE Active [id number] 4 2023 30 Pharmac y Data Transac tion Service Facilit y SERTRALINE HCL (sertraline HCl), 25 MG, TABLET, ORAL, [employer] 90 ea. BOTTLE Active [id number] 4 2023 30 Pharmac y Data Transac tion Service Facilit y SERTRALINE HCL (sertraline HCl), 25 MG, TABLET, ORAL, [employer] 90 ea. BOTTLE Active [id number] 4 2023 30 Pharmac y Data Transac tion Service Facilit y SODIUM POLYSTYRENE SULFONATE (sodium polystyrene sulfonate), POWDER, ORAL, SUNRISE PHARMAC, 15 g BOTTLE Active [id number] 4 2023 465 Pharmac y Data Transac tion Service Facilit y SUCRALFATE (sucralfate ), 1 G, TABLET, ORAL, [employer], 90 ea. BOTTLE Active [id number] 4 2023 120 Pharmac y Data Transac tion Service Facilit y SUCRALFATE (SUCRALFATE ), 1G, TABLET, ORAL, [employer], 100 ea. BOTTLE Cancele d [id number] : 2023 0 Pharmac y Data Transac tion Service Facilit y SULFAMETHOX AZOLE-TRIME THOPRIM (SULFAMETHO XAZOLE/TRIM ETHOPRIM), 400MG-80MG, TABLET, ORAL, AUROBINDO PHARM, 100 ea. BOTTLE Active [id number] 2023 14 Pharmac y Data Transac tion Service Facilit y Encounters Combined list of: 1) Encounters from Department of Veterans Affairs facilities going backup to the last 18 months, not all [place] inpatient encounters are included; 2) Encounters from the Department of Defense facilities going backup to 280 months. Location Location Details Encounter Type Encounter Number Reason For Visit Attending Provider ADM Date DC Date Status Disposition Source [place] [facility] [place] [facility] PRO PHONE CALL 5-10 MIN [id number] Diagnos is: ICD-10- CM Z71.0 Prsn encntr hlth serv to consult on behalf of another person KELSEY, TH E 12/27 [place] [facility] [place] [place] [facility] [place] [facility] Outpatient Encounter [id number] 01/09 [place] [facility] [place] [place] [facility] [place] [place] [facility] HC PRO PHONE CALL 5-10 MIN [id number] Diagnos is: ICD-10- CM Z71.0 Prsn encntr hlth serv to consult on behalf of another person KELSEY,RU TH E 01/09 [place] [facility] [place] [place] [facility] [place] [facility] Outpatient Encounter [id number] 01/13 [facility] [place] En[facility] [id number] 01/15 [facility] [place] PRO PHONE CALL 5-10 MIN [id number] Diagnos is: ICD-10- CM Z71.0 Prsn encntr hlth serv to consult on behalf of another person [facility],RU [facility] E 01/15 [facility] [place] [facility] PRO PHONE CALL 5-10 MIN [id number] Diagnos is: ICD-10- CM Z71.0 Prsn encntr hlth serv to consult on behalf of another person [facility] E 01/21 [facility] [place] PRO PHONE CALL 5-10 MIN [id number] Diagnos is: ICD-10- CM Z71.0 Prsn encntr hlth serv to consult on behalf of another person [facility] E 02/05 [facility] [place] [id number] 02/10 [facility] [place] En[facility] [id number] 02/10 [facility] [place] ASSMT/REAS SESSMENT [id number] Diagnos is: ICD-10- CM Z71.0 Prsn encntr hlth serv to consult on behalf of another person [facility] E 03/11 [facility] [place] PRO PHONE CALL 11-20 MIN [id number] Diagnos is: ICD-10- CM Z71.0 Prsn encntr hlth serv to consult on behalf of another person KELSEY,RU E 06/17 [facility] [place] PRO PHONE CALL 5-10 MIN [id number] Diagnos is: ICD-10- CM Z71.0 Prsn encntr hlth serv to consult on behalf of another person KELSEY,RU E 06/24 [facility] [place] PRO PHONE CALL 11-20 MIN [id number] Diagnos is: ICD-10- CM Z71.0 Prsn encntr hlth serv to consult on behalf of another person KELSEY,RU E 06/25 [facility] [place] ASSMT/REAS SESSMENT [id number] Diagnos is: ICD-10- CM Z71.0 Prsn encntr hlth serv to consult on behalf of another person KELSEY,RU E 07/07 [facility] [place] PRO PHONE CALL 5-10 MIN [id number] Diagnos is: ICD-10- CM Z71.0 Prsn encntr hlth serv to consult on behalf of another person KELSEY,RU E 07/09 [facility] [place] Encounter [id number] 11/20 [facility] [place] PRO PHONE CALL 5-10 MIN [id number] Diagnos is: ICD-10- CM Z71.0 Prsn encntr hlth serv to consult on behalf of another person LOW,RU TH E 11/24 [facility] En[facility] [id number]/[id number] [facility] Encounter [id number] 02/04 [facility] [place] PRO PHONE CALL 5-10 MIN [id number] Diagnos is: ICD-10- CM Z71.0 Prsn encntr hlth serv to consult on behalf of another person LOW,RU TH E 03/24 [facility] En[facility] [id number] 03/26 [facility] ASSMT/REAS SESSMENT [id number] Diagnos is: ICD-10- CM Z71.0 Prsn encntr hlth serv to consult on behalf of another person LOW,RU TH E 04/02 [place] [facility] [place] [facility] Social History Combined list of available smoking, tobacco, and other social history from Department of Defense and Veterans Affairs facilities. Social History Type Response Date Comment Sourc e This section is an empty social history section. DoD
--- OUTSIDE RECORDS SUMMARY | 2024-06-23 22:21 | XMS_ITS | Encounter Summary ---
Author Organization [facility] Address [address] [place] [address] Phone Care Team Providers Care Manager Welding Name Role Phone Marita Wetzel DO Primary Care Provider Unava ilable Encounter Details Date Type Department Care Team (Late st Contact Info) Description 12/06/2022 Documentation Only [facility] [address] [place] [phone] [place] [address] [place] [phone] Social History Tobacco Use Types Packs/Day Years [...] Only [facility] - [facility] [address] [place] [phone] documented as of this encounter Visit Diagnoses Not on filedocumented in this encounter Care Teams Manager Welding Relationship Specialty Start Date End Date Marita Wetzel DO [address] [place] [address] PCP - General Family Medicine 11/14/22 documented as of this encounter
--- OUTSIDE RECORDS SUMMARY | 2024-06-23 22:21 | XMS_ITS | Encounter Summary ---
Author Organization [employer] Address [address] [place] [address] Care Team Providers Care Cream Hauler Name Role Phone Marita Wetzel DO Primary Care Provider [phone] Carmen Becker PharmD Unavailable [phone] Encounter Details Date Type Department Care Team (Late st Contact Info) Description 04/29/2023 Telephone [facility] [address] [place] [address] Marita Wetzel DO [address] [place] [address] Social History Tobacco Use Types Packs/Day Years Used Date Smoking Tobacco: Never Passive Smoke Exposure: Never Smokeless Tobacco: Never Alcohol Use Standard Drinks/Week Comments Never 0 (1 standard drink = 0.6 oz pur e alcohol) Depression Answer Date Recorded Patient Health Questionnaire-9 Score 0 10/08/2022 Housing Stability Answer Date Recorded What is your housing situation today? I have naye garcia 01/27/[address] you li ve. Do you have problems with any of the following? Pests such as bugs, ants, or mice 01/27/2023 Food Insecurity Answer Date Recorded Within the [...] Description 08/20/2024 10:00 AM EDT Office Visit [facility] [address] [place] [address] Marita Wetzel DO [address] [place] [address] documented as of this encounter Visit Diagnoses Not on filedocumented in this encounter Additional Health Concerns Assessment Noted Time PHQ-9 Depression Total Score: 0 10/09/19 23 9:31 AM EDT documented as of this encounter Care Teams Cream Hauler Relationship Specialty Start Date End Date Marita Wetzel DO [address] [place] [address] PCP - General Family Medicine 04/21/18 Carmen Becker PharmD [address] [place] [address] Pharmacist Internal Medicine 07/21/23 01/21/24 [facility] 05/22/24 documented as of this encounter
--- OUTSIDE RECORDS SUMMARY | 2024-06-23 22:21 | XMS_ITS | Encounter Summary ---
Author Organization [facility] Address [address] [place] [address] Care Team Providers Care Acds Block 1 Operator Name Role Phone Marita Wetzel Primary Care Provider [phone] Encounter Details Date Type Department Care Team (Late st Contact Info) Description 04/23/2024 Lab Requisition [facility] - Main Lab [address] [place] [phone] Marily Gordillo MD [address] [place] [address] Chronic embolism and thrombosis of [...] LAB CHEMISTRY METHOD 04/26/2024 9:11 AM EST [facility] Potassium 3.4(L) 3.5 - 5.5 mmol/L LAB CHEMISTRY METHOD 04/26/2024 9:11 AM EST [facility] Chloride 109 96 - 110 mmol/L LAB CHEMISTRY METHOD 04/26/2024 9:11 AM [facility] CO2 27 21 - 32 mmol/L LAB CHEMISTRY METHOD 04/26/2024 9:11 AM [facility] Anion Gap 7 3 - 11 LAB CHEMISTRY METHOD 04/26/2024 9:11 AM [facility] Glucose 80 70 - 100 mg/dL LAB CHEMISTRY METHOD 04/26/2024 9:11 AM [facility] BUN 29(H) 5 - 25 mg/dL LAB CHEMISTRY METHOD 04/26/2024 9:11 AM [facility] Creatinine 3.36(H) 0.50 - 1.10 mg/dL LAB CHEMISTRY METHOD 04/26/2024 9:11 AM [facility] eGFR 15(L) >=60 mL/min/1. 73m2 LAB CHEMISTRY METHOD 04/26/2024 9:11 AM [facility] Comment:Calculation based on the??Chronic Kidney Disease Epidemiology Collaboration (CKD-EPI) equation refit??without adjustment for race. BUN/Creatinine Ratio 8.6 LAB CHEMISTRY METHOD 04/26/2024 9:11 AM [facility] Albumin 2.1(L) 3.2 - 5.0 g/dL LAB CHEMISTRY METHOD 04/26/2024 9:11 AM [facility] Calcium 8.7 8.5 - 10.5 mg/dL LAB CHEMISTRY METHOD 04/26/2024 9:11 AM [facility] Phosphorus 2.5 2.5 - 4.5 mg/dL LAB CHEMISTRY METHOD 04/26/2024 9:11 AM [facility] Blood Venous blood specimen / Unknown Venipuncture / Unknown 04/26/2024 6:18 AM EST 04/26/2024 8:28 AM EST Marily Gordillo MD LAB BLOOD ORDERABLES Final Resul t [facility] [address] [place] [address], documented in this encounter Visit Diagnoses Diagnosis Chronic embolism and thrombosis of unspecified vein Acute kidney failure, unspecified (CMS/HCC) Acute kidney failure, unspecified documented in this encounter Care Teams Acds Block 1 Operator Relationship Specialty Start Date End Date Marita Wetzel DO [address] [place] [address] PCP - General 01/09/23 documented as of this encounter
--- OUTSIDE RECORDS SUMMARY | 2024-06-23 22:21 | XMS_ITS | Encounter Summary ---
Author Organization [facility] Address [address] [place] [address] Phone Care Team Providers Care Tracer Lathe Set Up Operator Name Role Phone Marita Wetzel DO Primary Care Provider Unava ilable Encounter Details Date Type Department Care Team (Late st Contact Info) Description 06/25/2022 Documentation Only [facility] [address] [place] [phone] Pauline Aguayo [address] [place] [phone] Social History Tobacco Use Types Packs/Day Years [...] Only [facility] [address] [place] [phone] documented as of this encounter Visit Diagnoses Not on filedocumented in this encounter Care Teams Tracer Lathe Set Up Operator Relationship Specialty Start Date End Date Marita Wetzel DO [address] [place] [id number] PCP - General Family Medicine 11/14/22 documented as of this encounter
--- OUTSIDE RECORDS SUMMARY | 2024-06-23 22:21 | XMS_ITS | Encounter Summary ---
Author Organization [facility], Address [address] [place] [address] Phone Care Team Providers Care Wharf Builder Name Role Phone Marita Wetzel DO Primary Care Provider Unava ilable Reason for Visit * Reason Comments Med Refill Encounter Details Date Type Department Care Team (Late Contact Info) Description 12/06/2020 Refill [facility] [address] [place] [phone] Bernardo Doty MD [address] [place] [address] [place] [address] Social History Tobacco Use Types [...] Department Care Team (Late Contact Info) Description 07/13/2024 12:30 PM EDT Scheduled Only [facility], - [facility] Access Center [address] [place] [address] [place] [address] documented as of this encounter Visit Diagnoses Not on filedocumented in this encounter Care Teams Wharf Builder Relationship Specialty Start Date End Date Marita Wetzel DO [address] [place] [address] PCP - General Family Medicine 7/27/23 documented as of this encounter
--- OUTSIDE RECORDS SUMMARY | 2024-06-23 22:21 | XMS_ITS | Encounter Summary ---
Author Organization [facility] Address [address] [place] [address] Phone Care Team Providers Care English Horn Player Name Role Phone Marita Wetzel DO Primary Care Provider Unava ilable Encounter Details Date Type Department Care Team (Late st Contact Info) Description 12/31/2022 Documentation Only [facility] [address] [place] [phone] Candace Adam PA Social History Tobacco Use [...] Only [facility] [place], [facility] Vascular Access Center [address] [place] [phone] documented as of this encounter Visit Diagnoses Not on filedocumented in this encounter Care Teams English Horn Player Relationship Specialty Start Date End Date Marita Wetzel DO [address] [place] [address] PCP - General Family Medicine 11/14/22 documented as of this encounter
--- OUTSIDE RECORDS SUMMARY | 2024-06-23 22:21 | XMS_ITS | Encounter Summary ---
Author Organization [facility] Address [address] [place] [address] Care Team Providers Care Cellular Equipment Installer Name Role Phone Marita Wetzel DO Primary Care Provider +1- [phone] Encounter Details Date Type Department Care Team (Late st Contact Info) Description 05/12/2024 Lab Requisition [facility] - Main Lab 299 [facility] [employer] [place] [phone] Marily Gordillo MD [address] [place] [address] Chronic kidney disease, unspecified; Anemia, [...] unspecified documented in this encounter Care Teams Cellular Equipment Installer Relationship Specialty Start Date End Date Marita Wetzel DO [address] [place] [address] PCP - General 01/09/23 documented as of this encounter
--- OUTSIDE RECORDS SUMMARY | 2024-06-23 22:21 | XMS_ITS | Encounter Summary ---
Author Organization [facility] Address [address] [place] [address] Care Team Providers Care Service Architect Name Role Phone Marita Wetzel DO Primary Care Provider +1- [phone] Encounter Details Date Type Department Care Team (Late st Contact Info) Description 04/29/2024 Lab Requisition [facility] - Main Lab 299 [facility] [place] [phone] Marily Gordillo MD [address] [place] [phone] Chronic embolism and thrombosis of unspecified vein; [...] unspecified documented in this encounter Care Teams Service Architect Relationship Specialty Start Date End Date Marita Wetzel DO [address] [place], [place] PCP - General 01/09/23 documented as of this encounter
--- OUTSIDE RECORDS SUMMARY | 2024-06-23 22:21 | XMS_ITS | Encounter Summary ---
Author Organization [facility] Address [address] [place] [address] Care Team Providers Care Survey Superintendent Name Role Phone Marita Wetzel Primary Care Provider +1- [phone] Encounter Details Date Type Department Care Team (Late st Contact Info) Description 04/30/2024 Lab Requisition [facility] - Main Lab [address] [place] [phone] Marily Gordillo MD [address] [place] [phone] Chronic embolism and thrombosis of unspecified vein; [...] LAB CHEMISTRY METHOD 05/03/2024 10:39 AM EST [facility] Potassium 5.1 3.5 - 5.5 mmol/L [...] 6:09 AM EST 05/03/2024 9:28 AM EST us Marily Gordillo MD LAB BLOOD ORDERABLES Final Resul t [facility]HILASH [place] ([facility]) [facility] [address] [place] [address], * Tacrolimus level (05/03/2024 6:09 AM EST) [...] developed and the performance characteristics determined by [facility]. This confirmation testing has not been cleared or approved by the FDA. The laboratory is regulated under CLIA as qualified to perform high-complexity testing. This test is used for patient testing purposes. It should not be regarded as investigational or for research. Test performed at [facility], [address], [place], [place] ??[address] ? [phone] Ashtyn Leigh MD, PhD - Biometrics Head Blood Venous blood specimen / Unknown Venipuncture / Unknown 05/03/2024 6:09 AM EST 05/03/2024 9:28 AM EST Marily Gordillo MD LAB BLOOD ORDERABLES Final Resul t [facility] [address] [place] [address] documented in this encounter Visit Diagnoses Diagnosis Chronic embolism and thrombosis of unspecified vein Acute kidney failure, unspecified (CMS/[facility]) Acute kidney failure, unspecified documented in this encounter Care Teams Survey Superintendent Relationship Specialty Start Date End Date Marita Wetzel DO [address] [place] [address] PCP - General 01/09/23 documented as of this encounter
--- OUTSIDE RECORDS SUMMARY | 2024-06-23 22:21 | XMS_ITS ---
Author Organization [facility] Address [address] [place] [address] Care Team Providers Care Financial Reporting Advisor Name Role Phone Miryam Tyson Unavailable [phone] REASON FOR VISIT Cancel Encounters Encounter Location Date Provider Diagnosis [facility] [address] [place] [address] 06/17/2024 Miryam Tyson Plan Of Treatment No Information Progress Notes * Farhan BEARDaDOB:1960 (64 yo F)Acc No.[id number]:06/17/2024 Patient:?Alix BEARD :1960???Age:64 Y???Sex:Female Address:[address] [place] [address], [address] * true * Date:? Generated for Michael santos/Chloe/eTransmitting on:?06/23/2024 10:20 PM EST
--- OUTSIDE RECORDS SUMMARY | 2024-06-23 22:21 | XMS_ITS | Encounter Summary ---
Author Organization [employer] Address [address] [place] [address] 7 [place] [address] Care Team Providers Care Informatics Analyst Name Role Phone Marita Wetzel DO Primary Care Provider [phone] Carmen Becker PharmD Unavailable [phone] Reason for Visit * Reason Onset Date Comments Prior Authorization 04/25/2023 Tresiba Flex Touch Encounter Details Date Type Department Care Team (Late st Contact Info) Description 04/25/2023 Telephone [facility] [address] [place] [address] Marita Wetzel DO [address] [place] [address] Prior Authorization (Tresiba FlexTouch) Social History Tobacco Use Types Packs/Day Years [...] encounter Miscellaneous Notes * Telephone Encounter - Hollie Osborn - 04/30/2023 10:50 AM EST PA for Tresiba FlexTouch was submited to Plan on 04/29, and is currently pending determination. * Telephone Encounter - Uli Gregory - 04/25/2023 3:50 PM EST Tc from patient calling to request the status on a prior authorization for the medication insulin lispro (HumaLOG KWIKPEN) 100 UNIT/ML injection,insulin degludec (Tresiba FlexTouch) 100 UNIT/ML injection documented in this encounter Plan of Treatment Upcoming Encounters Date Type Department Care Team (Late st Contact Info) Description 08/20/2024 10:00 AM EDT Office Visit [facility] [address] [place] [address] Marita Wetzel DO [address] [place], [place] [phone] documented as of this encounter Visit Diagnoses Not on filedocumented in this encounter Additional Health Concerns Assessment Noted Time PHQ-9 Depression Total Score: 0 10/09/19 23 9:31 AM EDT documented as of this encounter Care Teams Informatics Analyst Relationship Specialty Start Date End Date Marita Wetzel DO [address] [place] [address] PCP - General Family Medicine 04/21/18 Carmen Becker PharmD [address] [place] [address] Pharmacist Internal Medicine 07/21/23 01/21/24 [facility] 05/22/24 documented as of this encounter
--- OUTSIDE RECORDS SUMMARY | 2024-06-23 22:21 | XMS_ITS | Encounter Summary ---
Author Organization [facility] Address [address] [place] [address] Phone Care Team Providers Care Steam Bone Press Tender Name Role Phone Marita Wetzel DO Primary Care Provider Unava ilable Encounter Details Date Type Department Care Team (Late st Contact Info) Description 03/18/2023 Documentation Only [facility] [address] [place] [address] Bernardo Doty MD [address] [place] [address] [place] [address] Social History Tobacco Use Types [...] Only [facility] [place], - Vascular Access Center [address] [place] [address] documented as of this encounter Visit Diagnoses Not on filedocumented in this encounter Care Teams Steam Bone Press Tender Relationship Specialty Start Date End Date Marita Wetzel DO [address] [place] [address] PCP - General Family Medicine 11/14/22 documented as of this encounter
--- OUTSIDE RECORDS SUMMARY | 2024-06-23 22:21 | XMS_ITS | Encounter Summary ---
Author Organization [facility] Address [address] [place] [address] Care Team Providers Care Regional Driver Name Role Phone Marita Wetzel Primary Care Provider [phone]- [phone] Encounter Details Date Type Department Care Team (Late st Contact Info) Description 05/07/2024 Lab Requisition [facility] - Main Lab [address] [place] [phone] Marily Gordillo MD [address] [place] [address] Chronic embolism and thrombosis of [...] LAB CHEMISTRY METHOD 05/10/2024 11:45 AM EST [facility] Potassium 3.8 3.5 - 5.5 mmol/L LAB CHEMISTRY METHOD 05/10/2024 11:45 AM [facility] Chloride 96 96 - 110 mmol/L LAB CHEMISTRY METHOD 05/10/2024 11:45 AM [facility] CO2 28 21 - 32 mmol/L LAB CHEMISTRY METHOD 05/10/2024 11:45 AM [facility] Anion Gap 11 3 - 11 LAB CHEMISTRY METHOD 05/10/2024 11:45 AM [facility] Glucose 215(H) 70 - 100 mg/dL LAB CHEMISTRY METHOD 05/10/2024 11:45 AM [facility] BUN 45(H) 5 - 25 mg/dL LAB CHEMISTRY METHOD 05/10/2024 11:45 AM [facility] Creatinine 3.47(H) 0.50 - 1.10 mg/dL LAB CHEMISTRY METHOD 05/10/2024 11:45 AM [facility] eGFR 14(L) >=60 mL/min/1. 73m2 LAB CHEMISTRY METHOD 05/10/2024 11:45 AM [facility] Comment:Calculation based on the??Chronic Kidney Disease Epidemiology Collaboration (CKD-EPI) equation refit??without adjustment for race. BUN/Creatinine Ratio 13.0 LAB CHEMISTRY METHOD 05/10/2024 11:45 AM [facility] Albumin 1.7(L) 3.2 - 5.0 g/dL LAB CHEMISTRY METHOD 05/10/2024 11:45 AM [facility] Calcium 8.4(L) 8.5 - 10.5 mg/dL LAB CHEMISTRY METHOD 05/10/2024 11:45 AM [facility] Phosphorus 2.1(L) 2.5 - 4.5 mg/dL LAB CHEMISTRY METHOD 05/10/2024 11:45 AM [facility] Blood Venous blood specimen / Unknown Venipuncture / Unknown 05/10/2024 5:50 AM EST 05/10/2024 9:58 AM EST us Marily Gordillo MD LAB BLOOD ORDERABLES Final Resul t [facility] [place] ([facility]) [facility] [address] [place] [address], * Tacrolimus level (05/10/2024 5:50 AM EST) [...] investigational or for research. Test performed at [facility], [address], [place], [place] [address] ? [phone] Ashtyn Leigh MD, PhD - Data Deliverables Manager Blood Venous blood specimen / Unknown Venipuncture / Unknown 05/10/2024 5:50 AM EST 05/10/2024 9:58 AM EST us Marily Gordillo MD LAB BLOOD ORDERABLES Final Resul t [facility] [address] [place] [address] documented in this encounter Visit Diagnoses Diagnosis Chronic embolism and thrombosis of unspecified vein Acute kidney failure, unspecified (CMS/HCC) Acute kidney failure, unspecified documented in this encounter Care Teams Regional Driver Relationship Specialty Start Date End Date Marita Wetzel DO [address] [place] [address] PCP - General 01/09/23 documented as of this encounter
--- OUTSIDE RECORDS SUMMARY | 2024-06-23 22:21 | XMS_ITS | Encounter Summary ---
Author Organization [facility] Address [address] [place] [address] Care Team Providers Care Box Gluer Name Role Phone Marita Wetzel DO Primary Care Provider [phone]- [phone] Encounter Details Date Type Department Care Team (Late st Contact Info) Description 04/28/2024 Lab Requisition [facility] - Main Lab [address] [facility] [place] [phone] Marily Gordillo MD [address] [place] [address] Chronic kidney disease, unspecified; Anemia, [...] unspecified documented in this encounter Care Teams Box Gluer Relationship Specialty Start Date End Date Marita Wetzel DO [address] [place] [address] PCP - General 01/09/23 documented as of this encounter
--- OUTSIDE RECORDS SUMMARY | 2024-06-23 22:21 | XMS_ITS | Encounter Summary ---
Author Organization [facility] Address [address] [place] [address] Phone Care Team Providers Care Kettle Operator Name Role Phone Marita Wetzel DO Primary Care Provider Unava ilable Encounter Details Date Type Department Care Team (Late st Contact Info) Description 09/11/2023 Documentation Only [facility] [address] [facility] [place] [phone] Pauline Aguayo [address] [place] [phone] Social History Tobacco Use Types Packs/Day Years [...] Only [facility] V[facility] Center [address] [place] [phone] documented as of this encounter Visit Diagnoses Not on filedocumented in this encounter Care Teams Kettle Operator Relationship Specialty Start Date End Date Marita Wetzel DO [address] [place] [address] PCP - General Family Medicine 11/14/22 documented as of this encounter
--- OUTSIDE RECORDS SUMMARY | 2024-06-23 22:21 | XMS_ITS | Encounter Summary ---
Author Organization [facility] Address [address] [place] [address] Phone Care Team Providers Care Director Risk Name Role Phone Marita Wetzel DO Primary Care Provider Unava ilable Encounter Details Date Type Department Care Team (Late st Contact Info) Description 07/04/2023 Documentation Only [facility] [address] [facility] [place] [phone] Pauline Aguayo [address] [place] [phone] Social History Tobacco Use Types Packs/Day Years [...] Only [facility] Vascular Access Center [address] [place] [phone] documented as of this encounter Visit Diagnoses Not on filedocumented in this encounter Care Teams Director Risk Relationship Specialty Start Date End Date Marita Wetzel DO [address] [place] [address] PCP - General Family Medicine 11/14/22 documented as of this encounter
--- OUTSIDE RECORDS SUMMARY | 2024-06-23 22:21 | XMS_ITS | Encounter Summary ---
Author Organization [facility] Address [address] [place] [address] Care Team Providers Care Manufacturing Area Manager Name Role Phone Marita Wetzel DO Primary Care Provider +1- [phone] Encounter Details Date Type Department Care Team (Late st Contact Info) Description 05/21/[address] [facility] - Main Lab [address] [facility] [place] [phone] Marily Gordillo MD [address] [place] [phone] Chronic embolism and thrombosis of unspecified vein; [...] unspecified documented in this encounter Care Teams Manufacturing Area Manager Relationship Specialty Start Date End Date Marita Wetzel DO [address] [place], [place] PCP - General 01/09/23 documented as of this encounter
--- OUTSIDE RECORDS SUMMARY | 2024-06-23 22:21 | XMS_ITS | Encounter Summary ---
Author Organization [facility] Address [address] [place] [address] Care Team Providers Care Advertising Photographer Name Role Phone Marita Wetzel DO Primary Care Provider +1- [phone] Encounter Details Date Type Department Care Team (Late st Contact Info) Description 05/31/2024 Lab Requisition [facility] - Main Lab [address] [facility] [employer] [place] [phone] Marily Gordillo MD [address] [place] [phone] Acute kidney failure, unspecified (CMS/HCC); Chronic embolism and thrombosis of unspecified vein; Anemia, unspecified Social History Tobacco Use Types [...] Chronic embolism and thrombosis of unspecified vein Anemia, unspecified documented in this encounter Care Teams Advertising Photographer Relationship Specialty Start Date End Date Marita Wetzel DO [address] [place], [place] PCP - General 01/09/23 documented as of this encounter
--- OUTSIDE RECORDS SUMMARY | 2024-06-23 22:21 | XMS_ITS | Encounter Summary ---
Author Organization [facility] Address [address] [place] [address] Phone Care Team Providers Care Auto Body Builder Apprentice Name Role Phone Marita Wetzel DO Primary Care Provider Unava ilable Encounter Details Date Type Department Care Team (Late st Contact Info) Description 01/21/2024 Documentation Only [facility] [address] [place] [phone] Pauline Aguayo [address] [place] [phone] Social History Tobacco Use Types Packs/Day Years [...] Only [facility] Vascular Access Center [address] [place] [phone] documented as of this encounter Visit Diagnoses Not on filedocumented in this encounter Care Teams Auto Body Builder Apprentice Relationship Specialty Start Date End Date Marita Wetzel DO [address] [place] [address] PCP - General Family Medicine 11/14/22 documented as of this encounter
--- OUTSIDE RECORDS SUMMARY | 2024-06-23 22:21 | XMS_ITS | Encounter Summary ---
Author Organization [facility] Address [address] [place] [address] Phone Care Team Providers Care Teleservices Representative Name Role Phone Marita Wetzel DO Primary Care Provider Unava ilable Encounter Details Date Type Department Care Team (Late st Contact Info) Description 08/11/2023 Documentation Only [facility] [address] [facility] [facility] [place] [phone] [place] [address] [place] [phone] Social History Tobacco Use Types Packs/Day Years [...] Only [facility] V[facility] Access Center [address] [facility] [facility] [place] [phone] documented as of this encounter Visit Diagnoses Not on filedocumented in this encounter Care Teams Teleservices Representative Relationship Specialty Start Date End Date Marita Wetzel DO [address] [place] [address] PCP - General Family Medicine 11/14/22 documented as of this encounter
--- OUTSIDE RECORDS SUMMARY | 2024-06-23 22:21 | XMS_ITS | Encounter Summary ---
Author Organization [facility] Address [address] [place] [address] Phone Care Team Providers Care Inverform Machine Operator Name Role Phone Marita Wetzel DO Primary Care Provider Unava ilable Encounter Details Date Type Department Care Team (Late st Contact Info) Description 03/18/2023 Documentation Only [facility] [address] [place] [phone] Srinivas Agrawal MD [address] [place] [address] [place] [address] Social History Tobacco Use Types [...] Only [facility] Vascular Access Center [address] [place] [address] [place] [phone] documented as of this encounter Visit Diagnoses Not on filedocumented in this encounter Care Teams Inverform Machine Operator Relationship Specialty Start Date End Date Marita Wetzel DO [address] [place] [address] PCP - General Family Medicine 11/14/22 documented as of this encounter
--- OUTSIDE RECORDS SUMMARY | 2024-06-23 22:21 | XMS_ITS | Encounter Summary ---
Author Organization [facility] Address [address] [place] [address] Phone Care Team Providers Care Boat Outfitting Supervisor Name Role Phone Marita Wetzel DO Primary Care Provider Unava ilable Encounter Details Date Type Department Care Team (Late st Contact Info) Description 12/09/2022 Documentation Only [facility] [address] [place] [phone] Candace Adam PA Social History Tobacco Use [...] Only [facility] [place] Vascular Access Center [address] [place] [phone] documented as of this encounter Visit Diagnoses Not on filedocumented in this encounter Care Teams Boat Outfitting Supervisor Relationship Specialty Start Date End Date Marita Wetzel DO [address] [place] [address] PCP - General Family Medicine 11/14/22 documented as of this encounter
--- OUTSIDE RECORDS SUMMARY | 2024-06-23 22:21 | XMS_ITS | Encounter Summary ---
Author Organization [facility] Address [address] [place] [address] Phone Care Team Providers Care Waste Elimination Name Role Phone Marita Wetzel DO Primary Care Provider Unava ilable Encounter Details Date Type Department Care Team (Late st Contact Info) Description 08/28/2023 Documentation Only [facility] [address] [facility] [place] [phone] [place] [address] [place] [phone] Social History Tobacco Use Types Packs/Day Years [...] Only [facility] Vascular Access Center [address] [facility] [place] [phone] documented as of this encounter Visit Diagnoses Not on filedocumented in this encounter Care Teams Waste Elimination Relationship Specialty Start Date End Date Marita Wetzel DO [address] [place] [address] PCP - General Family Medicine 11/14/22 documented as of this encounter
--- OUTSIDE RECORDS SUMMARY | 2024-06-23 22:21 | XMS_ITS | Encounter Summary ---
Author Organization [facility] Address [address] [place] [address] Phone Care Team Providers Care Assorter Name Role Phone Marita Wetzel DO Primary Care Provider Unava ilable Encounter Details Date Type Department Care Team (Late st Contact Info) Description 09/12/2023 Documentation Only [facility] [address] [place] [phone] [place] [address] [place] [phone] Social History Tobacco Use Types Packs/Day Years [...] Only [facility] [address] [place] [phone] documented as of this encounter Visit Diagnoses Not on filedocumented in this encounter Care Teams Assorter Relationship Specialty Start Date End Date Marita Wetzel DO [address] [place] [address] PCP - General Family Medicine 11/14/22 documented as of this encounter
--- OUTSIDE RECORDS SUMMARY | 2024-06-23 22:21 | XMS_ITS | Encounter Summary ---
Author Organization [facility] Address [address] [place] [address] Phone Care Team Providers Care Remote Sensing Specialist Name Role Phone Marita Wetzel DO Primary Care Provider Unava ilable Encounter Details Date Type Department Care Team (Late st Contact Info) Description 06/14/2022 Documentation Only [facility] [address] [place] [phone] Candace Adam PA Social History Tobacco Use [...] Only [facility] [place] [address] [place] [phone] documented as of this encounter Visit Diagnoses Not on filedocumented in this encounter Care Teams Remote Sensing Specialist Relationship Specialty Start Date End Date Marita Wetzel DO [address] [place] [address] PCP - General Family Medicine 11/14/22 documented as of this encounter
--- OUTSIDE RECORDS SUMMARY | 2024-06-23 22:21 | XMS_ITS | Encounter Summary ---
Author Organization [facility] Address [address] [place] [address] Care Team Providers Care Subway Train Driver Name Role Phone Marita Wetzel Primary Care Provider [phone] Encounter Details Date Type Department Care Team (Late st Contact Info) Description 04/30/2024 Lab Requisition [facility] - Main Lab [address] [place] [phone] Marily Gordillo MD [address] [place] [phone] Anemia, unspecified; Chronic embolism and thrombosis of [...] LAB CHEMISTRY METHOD 05/03/2024 10:[address] [facility] Blood Venous blood specimen / Unknown Venipuncture / Unknown 05/03/2024 6:09 AM EST 05/03/2024 9:29 AM EST Marily Gordillo MD LAB BLOOD ORDERABLES Final Resul t Performing Organization Address City/[facility]/ZIP Co de Phone Number [facility] [address] [place] [address], [place] [phone] * (ABNORMAL) Ferritin (05/03/2024 6:09 AM EST) Ferritin 2,737(H) 8 - 252 ng/mL LAB CHEMISTRY METHOD 05/03/2024 10:[address] [facility] Blood Venous blood specimen / Unknown Venipuncture / Unknown 05/03/2024 6:09 AM EST 05/03/2024 9:29 AM EST Marily Gordillo MD LAB BLOOD ORDERABLES Final Resul t Performing Organization Address [facility]/ZIP Co de Phone Number [facility] [address] [place] [address], [place] [phone] documented in this encounter Visit Diagnoses Diagnosis Anemia, unspecified Chronic embolism and thrombosis of unspecified vein Acute kidney failure, unspecified (CMS/HCC) Acute kidney failure, unspecified documented in this encounter Care Teams Subway Train Driver Relationship Specialty Start Date End Date Marita Wetzel DO [address] [place] [address] PCP - General 01/09/23 documented as of this encounter
--- OUTSIDE RECORDS SUMMARY | 2024-06-23 22:21 | XMS_ITS | Encounter Summary ---
Author Organization [employer] Address [address] [place] [address] [address] [place] [address] Care Team Providers Care Copper Plater Name Role Phone Marita Wetzel DO Primary Care Provider Carmen Becker PharmD Unavailable [phone] Encounter Details Date Type Department Care Team (Late st Contact Info) Description 10/14/2022 Abstract [facility] [address] [place] [address] Marita Wetzel DO [address] [place] [address] Social History Tobacco Use Types Packs/Day Years Used Date Smoking Tobacco: Never Passive Smoke Exposure: Never Smokeless Tobacco: Never Alcohol Use Standard Drinks/Week Comments Never 0 (1 standard drink = 0.6 oz pur e alcohol) Depression Answer Date Recorded Patient Health Questionnaire-9 Score 0 10/08/2022 Depression Answer Date Recorded Patient Health Questionnaire-2 Score 0 10/08/2022 Comments Unknown Sex and Gender Information Value Date Recorded Sex Assigned at Female 02/18/2022 10:21 AM EDT Legal Sex Female 10:21 AM EDT Gender Identity Female 02/18/2022 10:21 AM EDT Sexual Orientation Straight 02/18/2022 10 :21 AM EDT COVID-19 Exposure Response Date Recorded In the last 10 days, have yo u been in contact with someone who was confirmed or suspected to have Coronavirus/COVID-19? No / Unsure 10/08/2022 8:56 AM EDT documented as of this encounter Plan of Treatment Upcoming Encounters Date Type Department Care Team (Late st Contact Info) Description 08/20/2024 10:00 AM EDT Office Visit [facility] [address], [place] [phone] Marita Wetzel DO [address] [place], [place] [phone] documented as of this encounter Visit Diagnoses Not on filedocumented in this encounter Additional Health Concerns Assessment Noted Time PHQ-9 Depression Total Score: 0 10/09/19 23 9:31 AM EDT documented as of this encounter Care Teams Copper Plater Relationship Specialty Start Date End Date Marita Wetzel DO [address] [place], [place] [phone] PCP - General Family Medicine 04/21/18 Carmen Becker PharmD [address] [place], [place] [phone] Pharmacist Internal Medicine 07/21/23 01/21/24 [facility] 05/22/24 documented as of this encounter
--- OUTSIDE RECORDS SUMMARY | 2024-06-23 22:21 | XMS_ITS | Encounter Summary ---
Author Organization [employer] Address [address] [place] [address] [address] [place] [address] Care Team Providers Care Bale Piler Name Role Phone Marita Wetzel DO Primary Care Provider [phone] Carmen Becker PharmD Unavailable [phone] Encounter Details Date Type Department Care Team (Late st Contact Info) Description 12/11/2022 Orders Only [facility] [address] [place] [address] Heather Nesbitt, SONNY [address] [place] [address] Social History Tobacco Use Types Packs/Day Years [...] Description 08/20/2024 10:00 AM EDT Office Visit [facility] [address] [place] [address] Marita Wetzel DO [address] [place] [address] documented as of this encounter Visit Diagnoses Not on filedocumented in this encounter Additional Health Concerns Assessment Noted Time PHQ-9 Depression Total Score: 0 10/09/19 23 9:31 AM EDT documented as of this encounter Care Teams Bale Piler Relationship Specialty Start Date End Date Marita Wetzel DO [address] [place] [address] PCP - General Family Medicine 04/21/18 Carmen Becker PharmD [address] [place] [address] Pharmacist Internal Medicine 07/21/23 01/21/24 [facility] 05/22/24 documented as of this encounter
--- OUTSIDE RECORDS SUMMARY | 2024-06-23 22:21 | XMS_ITS | Encounter Summary ---
Author Organization [facility] Address [address] [place] [address] Care Team Providers Care Mandolin Repairer Name Role Phone Marita Wetzel DO Primary Care Provider [phone] Encounter Details Date Type Department Care Team (Late st Contact Info) Description 2024 Lab Requisition [facility] - Main Lab [address] [facility] [place] [phone] Marily Gordillo MD [address] [place] [address] Chronic kidney disease, unspecified; Anemia, [...] unspecified documented in this encounter Care Teams Mandolin Repairer Relationship Specialty Start Date End Date Marita Wetzel DO [address] [place] [address] PCP - General 01/09/23 documented as of this encounter
--- OUTSIDE RECORDS SUMMARY | 2024-06-23 22:21 | XMS_ITS | Data Portability ---
Author Organization [facility] [employer] [facility], Main Office Address [address], [address] [place] [address] Care Team Providers Care Casting Inspector Name Role Phone PRIMITIVO CHRISTENSEN 2ND FLOOR OTHER [phone] CALEB STYLES Primary Care Provider [phone] Assessment Encounter Date Assessment Date Assessment LastModified by Organization Details LastModified Time 02/19/2023 02/19/2023 spent 30 min unclogging GT Not available 02/19/2023 11:20:42 Plan of Treatment Reminders Order Date Submit Date Provider Last Modified By Organization Details Last Modified Time Details Appointments None record ed. Lab None record ed. Referral None record ed. Procedures None record ed. Surgeries None record ed. Imaging None record ed. Medication Orders None record ed. Patient TargetsNo targets recorded. Patient InstructionsNo instructions recorded. Reason for Referral None Reported. Problems Name Problem SNOMED Code Status Onset Date Resolution Date Notes Provider Name and Address Organization Details Recorded Time Gastrostomy tube in situ 263029434 Active 2022 SENIA PEÑA NP [address], [address], [place], [address], [facility] 3 14:53:19 Type 2 diabetes mellitus 15929440 Active 2022 SENIA PEÑA NP [address] , [address], [place], [address], [facility] 3 14:53:33 Essential hypertension 27634957 Active 2022 SENIA PEÑA NP [address] , [address], [place], [address], [facility] 3 14:54:14 Hiccoughs 09593346 Active 2022 SENIA PEÑA NP [address], [address], [place], [address], [facility] 3 14:54:22 Anemia 407463378 Active 2022 SENIA PEÑA NP [address], [address], [place], [address], [facility] 3 14:54:39 Gastroesophage al reflux disease without esophagitis 300760077 Active 2022 SENIA PEÑA NP [address], [address], [place], [address], [facility] 3 14:56:54 Adult failure to thrive syndrome 196947521 Active 2022 SENIA PEÑA NP [address], [address], [place], [address], [facility] 3 14:57:30 Asthenia 02381619 Active 2022 SENIA PEÑA NP [address], [address], [place], [address], [facility] 3 14:57:41 Transplant of kidney Active 2022 SENIA PEÑA NP [address], [address], [place], [address], [facility] 3 15:20:19 Immunosuppress tracy therapy Active 2022 SENIA PEÑA NP [address], [address], [place], [address], [facility] 3 15:20:30 Problem Notes None recorded. Medical Equipment None Reported. Allergies Allergen ID Allergen Name Allergen Category Reaction Reaction Severity Criticality Documentation Date Start Date Code Code System Note Provider Name and Address Organization Details Recorded Time 63017 codeine medicatio n Not available Not available Not available 02/18/2023 2670 RxNorm Not Available Not Available Not Available 40736 oxycodone medicatio n Not available Not available Not available 02/18/2023 7804 RxNorm Not Available Not Available Not Available Medications Name Sig Start Date Stop Date Status Note LastModified by Organization Details LastModified Time tramadol 50 mg tablet Take 0.5 tablets every 8 hours by oral route as needed. 11/03/2 023 active Not Available Not Available Not Avai lable Vitals Date Recorded Heart rate Respiratory rate Body temperature Oxygen saturation Oxygen saturation in Arterial blood by Pulse oximetry Systolic blood pressure Diastolic blood pressure Provider Name and Address Organization Details Last Updated DateTime 3 67 /min 16 /min 98.5 [degF] 98 % 98 % 153 mm[Hg] 61 mm[Hg] SENIA PEÑA NP [address] [facility], [address], [place], [address], [facility] [employer] 3 14:58:05 Date Recorded Heart rate Respiratory rate Body temperature Oxygen saturation Oxygen saturation in Arterial blood by Pulse oximetry Systolic blood pressure Diastolic blood pressure Provider Name and Address Organization Details Last Updated DateTime 3 58 /min 16 /min 99 [degF] 95 % 95 % 160 mm[Hg] 74 mm[Hg] SENIA PEÑA NP [address], [address], [place], [address], [facility] [employer] 3 11:17:13 Date Recorded Body height Body mass index (BMI) Body weight Heart rate Respiratory rate Body temperature Oxygen saturation Oxygen saturation in Arterial blood by Pulse oximetry Systolic blood pressure Diastolic blood pressure Provider Name and Address Organization Details Last Updated DateTime 3 167.64 cm 22 kg/m2 68660.5 6 g 80 /min 20 /min 97.5 [degF] 96 % 96 % 128 mm[Hg] 70 mm[Hg] Aidee Garcia MD [address], [address], [place], [address], [facility] 3 15:16:07 Date Recorded Body height Heart rate Respiratory rate Body temperature Oxygen saturation Oxygen saturation in Arterial blood by Pulse oximetry Systolic blood pressure Diastolic blood pressure Provider Name and Address Organization Details Last Updated DateTime 3 167.64 cm 78 /min 16 /min 97.5 [degF] 97 % 97 % 122 mm[Hg] 68 mm[Hg] SENIA PEÑA NP [address], [address], [place], [address], [facility] 3 15:15:05 Social History Question Answer Notes LastModified by Organizat ion Details LastModified Time Tobacco Smoking Status Never Smoker SENIA PEÑA, EPIFANIO [address], [address], [place], [address], [facility] 02/18/2023 14:55:18 Do You Have An Advance Directive? Yes Information not available 02/19/2023 What Is Your Level Of Alcohol Consumption? None Information not available 02/18/2023 What Is Your Code Status? Full Code Information not available 02/19/2023 Where Do You Live? MultiLevelHouse Home With , Many Stairs Information not available 02/20/2023 Legal Guardian? No Informati on not available 02/20/2023 Do You Have A Medical Power Of Animal Care Worker? Yes Information not available 02/20/2023 What Was The Date Of Your Most Recent Tobacco Screening? 02/20/2023 Information not available 02/20/2023 Do You Have An Out Of Hospital DNR? No Information not available 02/20/2023 What Is Your Relationship Status? Information not available 02/20/2023 Do You Use Any Illicit Or Recreational Drugs? No Information not available 02/18/2023 Has Tobacco Cessation Counseling Been Provided? No N/a As Pt Is A Non-smoke r Information not available 02/20/2023 Do You Or Have You Ever Used Any Other Forms Of Tobacco Or Nicotine? No Information not available 02/20/2023 Sex: Unknown Functional Status None recorded. Mental Status None recorded. Family History Nothing Reported Notes:n/c Medical History No medical history recorded. Gynecological HistoryNo gynecological history recorded. Obstetrics History GPAL:G 0 P 0 0 0 0 Immunizations Vaccine Type Date Status Note Provider Nam e and Address Organization Details Recorded Time Influenza, adjuvanted, quadrivalent, PF 01/23/2022 completed Thania bonner [facility] 06/18/2023 12:05:05 Influenza, adjuvanted, quadrivalent, PF 02/26/2023 completed Thania bonner [facility] 06/18/2023 12:05:39 Past Encounters Encounter ID Performer Location Encounter Start Date Encounter Closed Date Diagnosis/Indication Diagnosis SNOMED-CT Code Diagnosis ICD10 Code Diagnosis Note [id number] EPIFANIO SCHNEIDER FERMIN [address] [place] [id number] 02/18/2023 14:50:00 02/21/2023 16:14:24 Adult failure to thrive syndrome 183973259 R62.7 GTdental soft, thin liquidswei ghts daily Gastrostom y tube in situ 414306384 Z93.1 flush with water qshift and after medspancre aleptase 10,500 q5 mg for clogged Gtsodium bicarb 650 mg for clogged GT Gastroesop hageal reflux disease without esophagitis 606071865 K21.9 lansoprazo le 30 mg bidprotoni x 40 mg bid Essential hypertension 94479858 I10 lisinopril 5 mg dailyamlod ipine 10 mg dailycoreg 25 mg bidmonitor bp Anemia 984600108 D64.9 cyancobala min 1000 dailyfolic 1 mg dailythiam ine 100 mg dailyprocr it 20,000 qweekmonit or labs Type 2 michael betes mellitus 63700873 E11.9 glargine 15 units amlispro y1toicyqyr r glucose Asthenia 31459997 R53.1 PT OT eval and treatfall precaution sfrequent safety checks Hiccoughs 75777420 R06.6 baclofen 5 mg tid prn Immunosupp ressive therapy 13604690 D84.9 myucopheno lic 180 4 tabs bidtacroli mus 7 daily [id number] EPIFANIO SCHNEIDER FERMIN [address] [place] [id number] 02/19/2023 11:16:30 02/21/2023 16:42:00 Gastrostomy tube in situ 346029647 Z93.1 FLUSH WITH WATER QSHIFT , BEFORE AND AFTER MEDSpancre aleptase 10,500 q5 mg for clogged Gtsodium bicarb 650 mg for clogged GT [id number] MD PRIMITIVO Torres [address] [place] [phone] 02/20/2023 14:20:37 02/25/2023 10:42:34 Adult failure to thrive syndrome 255710341 R62.7 Improving since on supplement al feeds vis g-tube.Not on optimal feeding as not yet available. Currently on Osmolite 1.2 mariah @ 65 ml/hr, will be switching to Glucerna when available. Monitor wts and labs. Gastrostom y tube in situ 083749266 Z93.1 As above.Wate r flush q shift.Use pancrelipa se prn and NaHCO3 prn both for clogged tubeMonito r function.C hange tube q 3 months with IR Gastroesop hageal reflux disease without esophagitis 803864651 K21.9 On meds prophylact ically due to G-tube.Unc lear if she's really supposed to be on both lansoprazo le and pantoprazo le, but for now will continue.C ontinue lansoprazo le 30 mg BID and pantoprazo le 40 mg BID.Monito r sxs. Essential hypertension 05922641 I10 Good control since here.Delilah nue lisinopril 5 mg qd, amlodipine 10 mg qd, and carvedilol 25 mg BID.Monito r BP and labs. Anemia 896332649 D63.1 Multifacto rial, but primarily due to CKD.Contin ue cyancobala min 1000 mcg qd, folic acid 1 mg qd, thiamine 100 mg qd and procrit 20,000 units qweek.Marycruz tor labsF/U with renal as planned. Type 2 michael betes mellitus 93714153 E11.9 Sugars very high since here, likely due to wrong tube feed being used.Gluce rna was just delivered, so will not change Lantus at this time.Delilah nue Lantus 15U qd qd and continue SSI.Contin ue fingerstic ks qid. Adjust meds as needed. Asthenia 61356681 R53.1 Very deconditio casi.Needs PT/OT for strengthen ing, balance, gait training, safety and function.C ontinue fall precaution s.Monitor for safety. Hawk 19727491 R06.6 Continue baclofen 5 mg TID prnMonitor sxs. End stage renal failure with renal transplant 212424787 Z94.0 N18.31 Had ESRD, now stage 3AAt baseline.N ot getting the right dose of tacrolimus since here, supposed to be 7 mg qd, but has only been getting 1 mg. Will correct.Co ntinue mycophenol ate 720 mg BID.Contin ue to avoid nephrotoxi c meds as able.Monit or labs.Renal f/u as planned. Infection of skin and/or subcutaneous tissue 24937851 L08.9 With early infection of g-tube site.Will start doxy 100 mg BID x 5 days with probiotic BID x 10 days.Empha size need to put gauze between flange and skin.Monit or. [id number] EPIFANIO SCHNEIDER FERMIN [address] [place] [id number] 02/24/2023 14:27:36 02/26/2023 13:13:22 Anemia 203304103 D63.1 cyancobala min 1000 dailyfolic 1 mg dailythiam ine 100 mg dailyprocr it 20,000 qweekmonit or labs Gastrostom y tube in situ 097673930 Z93.1 FLUSH WITH WATER QSHIFT , BEFORE AND AFTER MEDSpancre aleptase 10,500 q5 mg for clogged Gtsodium bicarb 650 mg for clogged GT Immunosupp ressive therapy 87813670 D84.9 myucopheno lic 180 4 tabs bidtacroli mus 7 mg daily Health Concerns Section Related Observation LastModified by Organization Detai ls LastModified Time None Recorded Concern Status LastModified by Organization Details LastModified Time None Recorded Advance Directives Directive Y: Payers Encounter Date Sequence Insurance Name Policy Number Policy Engle Covered Member ID Engle Member ID Guarantor Name 02/18/2023 1 [facility] [id number] [facility] 02/18/2023 2 FOR LIFE () [facility] [id number] [facility] 02/19/2023 1 [place] [id number] [facility] 02/19/2023 2 FOR LIFE () [facility] [id number] [facility] 02/20/2023 1 [place] [id number] [facility] 02/20/2023 2 FOR LIFE () [employer] [place] [place] [id number] [employer] [place] [place] 02/24/2023 1 [place]: [facility] [employer] [id number] [employer] [place] [place] 02/24/2023 2 FOR LIFE () [employer] [place] [id number] [employer] [place] [place] Notes Date Note Type Note Provider Name and Address Organization Details Recorded Time 02/18/2023 text/html seen today for i nitial intake visit-62 yof admitted to for rehab after presenting to the hospital, status post left kidney transplant in 2021 on tacrolimus and mycophenolate who was seen by her nephrologists today and was referred for direct admission for further evaluation and management of failure to thrive. Patient was recently admitted to the hospital in December 2022 for anemia and acute kidney injury. She was seen by her substitute teacher earlier today and was referred for admission for weight loss/failure to thrive. Patient report weight loss of > 50 pounds over the last few months with low appetite. She denies fever, chills, vomiting, abdominal pain, diarrhea or constipation. course complicated with hypoxia and worsening pneumonia in immunocompromised patient ??PJP required intubation with bronchoscopy , Was eventually extubated. And her hypoxemic respiratory failure improved. Patient received Bactrim for suspected pneumocystis pneumonia, however was discontinued after test was negative. Infectious disease was involved during the hospital stay. Work-up from bronchoscopy was grossly negative to establish definite infection. Patient was started on high-dose steroid which was eventually tapered down and weaned off after improvement in respiratory status. CAOx3 lungs clear, abd soft , all scars from incisions well healed, no edema, GT intact, she denies any discomfort or distress. SENIA PEÑA NP [address], [address], [place], [address], [facility] 02/18/2023 15:22:49 02/19/2023 text/html seen today for a cute rounding visit, CAOx3 sitting up in bed, GT was blocked, unable to initially flush or pull back, irrig with coca cola and will persistence was able to unclog the GT and it flushed well afterwards SENIA PEÑA NP [address], [address], [place], [address], [place] [facility] 02/19/2023 11:20:46 02/20/2023 text/html This is a compli cated 62 yo woman who is here for rehab after an acute hospitalization for FTT. She has had many hospitalizations over the past yr. Starting with kidney transplant in 02/2022 (on tacrolimus and mycophenolate). Most recently she was sent in for direct admission on 01/24, sent in by her substitute teacher for poor po intake and wt. loss. Documented wt of 160 in 04/2022 after sig diuresis post transplant, prior to that had been 189, but thought to be sig fluid wt. On 01/24 wt. was 120. She had been having issues with eating due to mouth sores, but these had resolved and intake remained poor. Admission eval showed VSS with mild HTN, mild OPWER (BUN/Cr-15/1.8 with baseline of 33/1.2), leukopenia with WBC of 3.3 and anemia with hgb-8.5, baseline. She was started on gentle hydration. Seen by dietary and g-tube discussed as po intake remained poor. She began spiking fevers and septic w/u started, reyna given leukopenia. U/A and CXR were non-acute and started on Zosyn for fever in leukopenia. On 01/28 CXR remained neg and blood cxs were NGTD, so Zosyn was stopped. Taken to IR for g-tube placement on 01/29. On 01/30 she developed encephalopathy. Labs were non-revealing and Zyprexa was used prn. Tacrolimus and mycophenolate doses were reduced by renal due to high levels. Head CT done and showed no acute findings, but did have: Moderate low-density white matter changes. 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 On 02/01 she spiked a fever again and CXR showed LLL infiltrate and Zosyn was restarted. She c/o abd pain and CT showed Mild to moderate hydronephrosis of the transplanted kidney in the left lower quadrant with the transplant renal pelvis now measuring 1.6 cm increased from 0.9 cm. Previously noted cluster of small calculi appearing within the expected UPJ junction of the transplanted kidney are not significantly changed in location. Increasing perinephric stranding surrounding the transplanted kidney could indicate superimposed urinary tract infection versus sequela of worsening hydronephrosis. Mild thickened urinary bladder wall some of which may be due to artifact from incomplete distention but cannot exclude cystitis. Cholelithiasis with questionable mild gallbladder wall thickening which is new from prior study. There is also a new calcification projecting adjacent to the gallbladder possibly within the gallbladder neck. Follow-up right upper quadrant ultrasound may be indicated. Correlate for other clinical findings of biliary disease .Tube feeds were started on 02/02. On 02/04 hgb dropped to 6.9 and she got 1U PRBC.On 02/05 she spiked a temp again and became hypoxic requiring 4L O2 by NC to maintain sats.. Viral panel was neg. CXR showed Developing infiltrates bilaterally right greater than left. Findings are consistent with pneumonia. Abx changed to meropenem and vanco. Txed with Incentive spirometry, Acapella, pulmonary toileting and chest PT. She required transition to CPAP for low sats. Continued to spike fevers and doxy added on 02/08 due to concern for PJP. She was transferred to the MICU for bronchoscopy and intubation. Started on Bactrim and methylprednisolone.Cr. bumped and given 1000 ml IV fluid. Also hgb 6.4 and got another unit PRBC.Bronchoscopy on 02/09 showed RLL wedging and lavage done and spec. sent. This had no growth on cx and was neg. for all opportunistic infections. Extubated on 02/10 and vanco and doxy d/c'd. Mycophenolate was held due to PNA. Prednisone started. Blood cxs remained neg.Throughout hospitalization sugars were checked q 6 hrs with SSI coverage, prior to hospitalization she was diet controlled. Diff to control, reyna after prednisone started. Lantus was started. She developed hiccups and baclofen was started.She stabilized and was transferred here on 02/18 due to severe deconditioning.Since here her sugars have been difficult to control, likely because Glucerna is not yet available and she has been getting osmolite. She is working with rehab and starting to get a little stronger. Labs have been stable.She tells me her g-tube site started hurting today. Wasn't hurting before. She says it was a little crusty yest, but not today. She tells me it's been a hard yr. Right after transplant things were great. But then she's had a lot of medical problems since then. She says I don't want to throw myself a pity constitution party, but it's been hard . She says she's already starting to feel much stronger.Her PMH includes HTN, hx of ESRD (had been on peritoneal dialysis) now s/p cadaver kidney transplant in 02/2022 on tacrolimus and mycophenolate, AODM, anemia, HLD, hx of carcinoid of appendix s/p resection, cholelithiasis, and FTT with g-tube for supplemental nutrition. Aidee Garcia MD [address], [address], [place], [address], [employer] [facility] 02/20/2023 21:24:33 02/24/2023 text/html seen today for a cute rounding visit-CAOx3 in bed, she is eating and drinking fairly well, GT remains intact, h/h down 6.220 will send to hospital for transfusion, she denies any discomfort or distress, lungs clear no edema SENIA PEÑA NP [address], [address], [place], [address], [facility] [employer] 02/24/2023 15:21:54 OBGyn Episode No OBEpisode recorded.
--- OUTSIDE RECORDS SUMMARY | 2024-06-23 22:21 | XMS_ITS | Encounter Summary ---
Author Organization [facility] Address [address] [place] [address] Care Team Providers Care Check Cashier Name Role Phone Marita Wetzel Primary Care Provider +1- [phone] Encounter Details Date Type Department Care Team (Late st Contact Info) Description 04/20/2024 Lab Requisition [facility] - Main Lab [address] [place] [phone] Marily Gordillo MD [address] [place] [address] Chronic kidney disease, unspecified; Anemia, [...] LAB CHEMISTRY METHOD 04/22/2024 11:50 AM EST [facility] Potassium 3.5 3.5 - 5.5 mmol/L LAB CHEMISTRY METHOD 04/22/2024 11:50 AM [facility] Chloride 112(H) 96 - 110 mmol/L LAB CHEMISTRY METHOD 04/22/2024 11:50 AM [facility] CO2 23 21 - 32 mmol/L LAB CHEMISTRY METHOD 04/22/2024 11:50 AM [facility] Anion Gap 8 3 - 11 LAB CHEMISTRY METHOD 04/22/2024 11:50 AM [facility] Glucose 135(H) 70 - 100 mg/dL LAB CHEMISTRY METHOD 04/22/2024 11:50 AM [facility] BUN 43(H) 5 - 25 mg/dL LAB CHEMISTRY METHOD 04/22/2024 11:50 AM [facility] Creatinine 3.79(H) 0.50 - 1.10 mg/dL LAB CHEMISTRY METHOD 04/22/2024 11:50 AM [facility] eGFR 13(L) >=60 mL/min/1. 73m2 LAB CHEMISTRY METHOD 04/22/2024 11:50 AM [facility] Comment:Calculation based on the??Chronic Kidney Disease Epidemiology Collaboration (CKD-EPI) equation refit??without adjustment for race. BUN/Creatinine Ratio 11.3 LAB CHEMISTRY METHOD 04/22/2024 11:50 AM [facility] Calcium 8.6 8.5 - 10.5 mg/dL LAB CHEMISTRY METHOD 04/22/2024 11:50 AM [facility] AST (SGOT) 9(L) 10 - 42 unit/L LAB CHEMISTRY METHOD 04/22/2024 11:50 AM [facility] ALT (SGPT) 9(L) 10 - 60 unit/L LAB CHEMISTRY METHOD 04/22/2024 11:50 AM [facility] Alkaline Phosphatase 59 42 - 121 unit/L LAB CHEMISTRY METHOD 04/22/2024 11:50 AM [facility] Total Protein 5.8(L) 6.0 - 8.0 g/dL LAB CHEMISTRY METHOD 04/22/2024 11:50 AM [facility] Albumin 2.0(L) 3.2 - 5.0 g/dL LAB CHEMISTRY METHOD 04/22/2024 11:50 AM [facility] Total Bilirubin 0.3 0.0 - 1.4 mg/dL LAB CHEMISTRY METHOD 04/22/2024 11:50 AM [facility] Blood Venous blood specimen / Unknown Venipuncture / Unknown 04/22/2024 7:09 AM EST 04/22/2024 9:42 AM EST Marily Gordillo MD LAB BLOOD ORDERABLES Final Resul t [facility] [address] [place] [address], * (ABNORMAL) Complete blood count (04/22/2024 7:09 AM EST) Pathologist [facility] WBC 8.2 4.8 - 10.8 K/mcL LAB HEMETOLOGY METHOD 04/22/2024 10:44 AM [facility] RBC 2.80(L) 3.80 - 4.80 M/mcL LAB HEMETOLOGY METHOD 04/22/2024 10:44 AM [facility] Hemoglobin 7.8(L) 11.5 - 16.0 g/dL LAB HEMETOLOGY METHOD 04/22/2024 10:44 AM [facility] Hematocrit 27.7(L) 35.0 - 47.0 % LAB HEMETOLOGY METHOD 04/22/2024 10:44 AM [facility] MCV 97.5 79.0 - 98.0 FL LAB HEMETOLOGY METHOD 04/22/2024 10:44 AM [facility] MCH 27.5 27.0 - 32.0 pcg LAB HEMETOLOGY METHOD 04/22/2024 10:44 AM EST [facility] MCHC 28.2(L) 32.0 - 37.0 g/dL LAB HEMETOLOGY METHOD 04/22/2024 10:44 AM [facility] RDW 16.5(H) 11.0 - 15.0 % LAB HEMETOLOGY METHOD 04/22/2024 10:44 AM [facility] Platelets 189 130 - 400 K/mcL LAB HEMETOLOGY METHOD 04/22/2024 10:44 AM [facility] MPV 10.7 7.0 - 11.0 FL LAB HEMETOLOGY METHOD 04/22/2024 10:44 AM [facility] NRBC 0.0 <1.0 % LAB HEMETOLOGY METHOD 04/22/2024 10:44 AM [facility] NRBC Absolute 0.00 <0.10 K/mcL LAB HEMETOLOGY METHOD 04/22/2024 10:44 AM [facility] Blood Venous blood specimen / Unknown Venipuncture / Unknown 04/22/2024 7:09 AM EST 04/22/2024 9:43 AM EST us Marily Gordillo MD LAB BLOOD ORDERABLES Final Resul t [facility] [address] [place] [address], documented in this encounter Visit Diagnoses Diagnosis Chronic kidney disease, unspecified Anemia, unspecified documented in this encounter Care Teams Check Cashier Relationship Specialty Start Date End Date Marita Wetzel DO [address] [place] [address] PCP - General 01/09/23 documented as of this encounter
--- OUTSIDE RECORDS SUMMARY | 2024-06-23 22:21 | XMS_ITS | Encounter Summary ---
Author Organization [facility] Address [address] [place] [address] Phone Care Team Providers Care Manager Architecture Name Role Phone Marita Wetzel DO Primary Care Provider Unava ilable Encounter Details Date Type Department Care Team (Late st Contact Info) Description 08/27/2023 Documentation Only [facility] [address] [place] [phone] [place] [address] [place] [phone] Social History Tobacco Use Types Packs/Day Years [...] Only [facility] [address] [place] [phone] documented as of this encounter Visit Diagnoses Not on filedocumented in this encounter Care Teams Manager Architecture Relationship Specialty Start Date End Date Marita Wetzel DO [address] [place] [address] PCP - General Family Medicine 11/14/22 documented as of this encounter
--- OUTSIDE RECORDS SUMMARY | 2024-06-23 22:22 | XMS_ITS | Encounter Summary ---
Author Organization [facility] Address [address] [place] [address] Care Team Providers Care Paper Grader Name Role Phone Marita Wetzel Primary Care Provider +1- [phone] Encounter Details Date Type Department Care Team (Late st Contact Info) Description 03/12/2024 Lab Requisition [facility] - Main Lab 299 [facility] [place] [address] Catalina Burr MD [address] [place] [address] Chronic embolism and thrombosis of unspecified vein; [...] - 20.0 ng/mL 03/17/2024 1:34 PM EST [facility] Comment: Additional Information: Toxic Level [...] developed and the performance characteristics determined by [facility]. This confirmation testing has not been cleared or approved by the FDA. The laboratory is regulated under CLIA as qualified to perform high-complexity testing. This test is used for patient testing purposes. It should not be regarded as investigational or for research. Test performed at [facility], [facility] [address] [facility] [place] [facility] ? [phone] Ashtyn Leigh MD, PhD - Digital Forensics Examiner Blood Venous blood specimen / Unknown Venipuncture / Unknown 03/15/2024 8:20 AM EST 03/15/2024 10:20 AM EST us Catalina Burr MD LAB BLOOD ORDERABLES Final Resul [place] [address] * (ABNORMAL) Renal function panel (03/15/2024 8:20 AM EST) Sodium 139 133 - 145 mmol/L LAB CHEMISTRY METHOD 03/15/2024 11:31 AM [facility] Potassium 5.6(H) 3.5 - 5.5 mmol/L LAB CHEMISTRY METHOD 03/15/2024 11:31 AM [facility] Chloride 108 96 - 110 mmol/L LAB CHEMISTRY METHOD 03/15/2024 11:31 AM [facility] CO2 19(L) 21 - 32 mmol/L LAB CHEMISTRY METHOD 03/15/2024 11:31 AM [facility] Anion Gap 12(H) 3 - 11 LAB CHEMISTRY METHOD 03/15/2024 11:31 AM [facility] Glucose 105(H) 70 - 100 mg/dL LAB CHEMISTRY METHOD 03/15/2024 11:31 AM [facility] BUN 36(H) 5 - 25 mg/dL LAB CHEMISTRY METHOD 03/15/2024 11:31 AM [facility] Creatinine 3.97(H) 0.50 - 1.10 mg/dL LAB CHEMISTRY METHOD 03/15/2024 11:31 AM [facility] eGFR 12(L) >=60 mL/min/1. 73m2 LAB CHEMISTRY METHOD 03/15/2024 11:31 AM [facility] Comment:Calculation based on the??Chronic Kidney Disease Epidemiology Collaboration (CKD-EPI) equation refit??without adjustment for race. BUN/Creatinine Ratio 9.1 LAB CHEMISTRY METHOD 03/15/2024 11:31 AM [facility] Albumin 2.6(L) 3.2 - 5.0 g/dL LAB CHEMISTRY METHOD 03/15/2024 11:31 AM EST [facility] Calcium 9.5 8.5 - 10.5 mg/dL LAB CHEMISTRY METHOD 03/15/2024 11:31 AM EST [facility] Phosphorus 4.0 2.5 - 4.5 mg/dL LAB CHEMISTRY METHOD 03/15/2024 11:31 AM EST [facility] Blood Venous blood specimen / Unknown Venipuncture / Unknown 03/15/2024 8:20 AM EST 03/15/2024 10:16 AM EST us Catalina Burr MD LAB BLOOD ORDERABLES Final Resul t [facility] [address] [place] [address], documented in this encounter Visit Diagnoses Diagnosis Chronic embolism and thrombosis of unspecified vein Acute kidney failure, unspecified (CMS/HCC) Acute kidney failure, unspecified Type 2 diabetes mellitus without complications (CMS/HCC) documented in this encounter Care Teams Paper Grader Relationship Specialty Start Date End Date Marita Wetzel DO [address] [place] [address] PCP - General 01/09/23 documented as of this encounter
--- OUTSIDE RECORDS SUMMARY | 2024-06-23 22:22 | XMS_ITS | Encounter Summary ---
Author Organization [facility] Address [address] [place] [address] Care Team Providers Care It Technical Support Specialist Name Role Phone Marita Wetzel Primary Care Provider +1- [phone] Encounter Details Date Type Department Care Team (Late st Contact Info) Description 04/02/2024 Lab Requisition [facility] - Main Lab 299 [facility] [employer] [place] [phone] Marily Gordillo MD [address] [place] [phone] Chronic embolism and thrombosis of unspecified vein; [...] - 20.0 ng/mL 04/07/2024 4:26 PM EST [facility] Comment: Additional Information: [...] developed and the performance characteristics determined by [facility]. This confirmation testing has not been cleared or approved by the FDA. The laboratory is regulated under CLIA as qualified to perform high-complexity testing. This test is used for patient testing purposes. It should not be regarded as investigational or for research. Test performed at [facility], [address], [place], [place] ??[address] ? [phone] Ashtyn Leigh MD, PhD - Fine Wire Drawer Blood Venous blood specimen / Unknown Venipuncture / Unknown 04/05/2024 6:56 AM EST 04/05/2024 10:25 AM EST us Marily Gordillo MD LAB BLOOD ORDERABLES Final Resul [place] [address] * (ABNORMAL) Renal function panel (04/05/2024 6:56 AM EST) Sodium 138 133 - 145 mmol/L LAB CHEMISTRY METHOD 04/05/2024 11:52 AM [facility] Potassium 5.0 3.5 - 5.5 mmol/L LAB CHEMISTRY METHOD 04/05/2024 11:52 AM [facility] Chloride 107 96 - 110 mmol/L LAB CHEMISTRY METHOD 04/05/2024 11:52 AM [facility] CO2 20(L) 21 - 32 mmol/L LAB CHEMISTRY METHOD 04/05/2024 11:52 AM [facility] Anion Gap 11 3 - 11 LAB CHEMISTRY METHOD 04/05/2024 11:52 AM [facility] Glucose 104(H) 70 - 100 mg/dL LAB CHEMISTRY METHOD 04/05/2024 11:52 AM [facility] BUN 56(H) 5 - 25 mg/dL LAB CHEMISTRY METHOD 04/05/2024 11:52 AM [facility] Creatinine 4.43(H) 0.50 - 1.10 mg/dL LAB CHEMISTRY METHOD 04/05/2024 11:52 AM [facility] eGFR 11(L) >=60 mL/min/1. 73m2 LAB CHEMISTRY METHOD 04/05/2024 11:52 AM [facility] Comment:Calculation based on the??Chronic Kidney Disease Epidemiology Collaboration (CKD-EPI) equation refit??without adjustment for race. BUN/Creatinine Ratio 12.6 LAB CHEMISTRY METHOD 04/05/2024 11:52 AM [facility] Albumin 1.9(L) 3.2 - 5.0 g/dL LAB CHEMISTRY METHOD 04/05/2024 11:52 AM EST [facility] Calcium 9.0 8.5 - 10.5 mg/dL LAB CHEMISTRY METHOD 04/05/2024 11:52 AM [facility] Phosphorus 3.1 2.5 - 4.5 mg/dL LAB CHEMISTRY METHOD 04/05/2024 11:52 AM [facility] Blood Venous blood specimen / Unknown Venipuncture / Unknown 04/05/2024 6:56 AM EST 04/05/2024 10:21 AM EST us Marily Gordillo MD LAB BLOOD ORDERABLES Final Resul t [facility] [address] [place] [address], * (ABNORMAL) Complete blood count (04/05/2024 6:56 AM EST) WBC 9.2 4.8 - 10.8 K/mcL LAB HEMETOLOGY METHOD 04/05/2024 10:42 AM [facility] RBC 2.50(L) 3.80 - 4.80 M/mcL LAB HEMETOLOGY METHOD 04/05/2024 10:42 AM [facility] Hemoglobin 6.8(L) 11.5 - 16.0 g/dL LAB HEMETOLOGY METHOD 04/05/2024 10:42 AM [facility] Hematocrit 24.8(L) 35.0 - 47.0 % LAB HEMETOLOGY METHOD 04/05/2024 10:42 AM [facility] MCV 99.6(H) 79.0 - 98.0 FL LAB HEMETOLOGY METHOD 04/05/2024 10:42 AM [facility] MCH 27.3 27.0 - 32.0 pcg LAB HEMETOLOGY METHOD 04/05/2024 10:42 AM [facility] MCHC 27.4(L) 32.0 - 37.0 g/dL LAB HEMETOLOGY METHOD 04/05/2024 10:42 AM EST [facility] RDW 16.7(H) 11.0 - 15.0 % LAB HEMETOLOGY METHOD 04/05/2024 10:42 AM [facility] Platelets 332 130 - 400 K/mcL LAB HEMETOLOGY METHOD 04/05/2024 10:42 AM [facility] MPV 10.2 7.0 - 11.0 FL LAB HEMETOLOGY METHOD 04/05/2024 10:42 AM [facility] NRBC 0.0 <1.0 % LAB HEMETOLOGY METHOD 04/05/2024 10:42 AM [facility] NRBC Absolute 0.00 <0.10 K/mcL LAB HEMETOLOGY METHOD 04/05/2024 10:42 AM [facility] Blood Venous blood specimen / Unknown Venipuncture / Unknown 04/05/2024 6:56 AM EST 04/05/2024 10:26 AM EST us Marily Gordillo MD LAB BLOOD ORDERABLES Final Resul t [facility] [address] [place] [address], documented in this encounter Visit Diagnoses Diagnosis Chronic embolism and thrombosis of unspecified vein Acute kidney failure, unspecified (CMS/HCC) Acute kidney failure, unspecified documented in this encounter Care Teams It Technical Support Specialist Relationship Specialty Start Date End Date Marita Wetzel DO [address] [place] [address] PCP - General 01/09/23 documented as of this encounter
--- OUTSIDE RECORDS SUMMARY | 2024-06-23 22:22 | XMS_ITS | Encounter Summary ---
Author Organization [employer] Address [address] [place] [address] 7 [place] [address] Care Team Providers Care Cat Driver Name Role Phone Marita Wetzel DO Primary Care Provider + [phone] Reason for Visit * Reason Onset Date Comments Hospital Follow-up 06/11/2024 Encounter Details Date Type Department Care Team ([facility] st Contact Info) Description 06/11/2024 Telephone [facility] [address] [place] [address] Marita Wetzel DO [address] [place], [place] [phone] Hospital Follow-up Social History Tobacco Use Types Packs/Day Years [...] encounter Miscellaneous Notes * Telephone Encounter - Rosalva Nice - 06/11/2024 2:25 PM EST Tc from pt requesting a HDF appt. Hospital: [facility] Date of admission: 05/31/2024 Discharge date: ------ Diagnosed:kidney failure *Send message to [facility] Clinical Care Coordinators documented in this encounter Plan of Treatment Upcoming Encounters Date Type Department Care Team (Late st Contact Info) Description 08/20/2024 10:00 AM EDT Office Visit [facility] [address] [place] [address] Marita Wetzel DO [address] [place], [place] [phone] documented as of this encounter Goals Goal [...] documented as of this encounter Care Teams Cat Driver Relationship Specialty Start Date End Date Marita Wetzel DO [address] [place] [address] PCP - General Family Medicine 04/21/18 [facility] 05/22/24 documented as of this encounter
--- OUTSIDE RECORDS SUMMARY | 2024-06-23 22:22 | XMS_ITS | Encounter Summary ---
Author Organization [facility] Address [address] [place] [address] Care Team Providers Care Retail Sales Merchandiser Name Role Phone Marita Wetzel Primary Care Provider +1- [phone] Encounter Details Date Type Department Care Team (Late st Contact Info) Description 04/17/[address] [facility] - Main Lab 299 [facility] [place] [phone] Marily Gordillo MD [address] [place] [phone] Chronic embolism and thrombosis of unspecified vein; [...] - 20.0 ng/mL 04/22/2024 11:22 AM EST [facility] Comment: Additional Information: [...] developed and the performance characteristics determined by [facility]. This confirmation testing has not been cleared or approved by the FDA. The laboratory is regulated under CLIA as qualified to perform high-complexity testing. This test is used for patient testing purposes. It should not be regarded as investigational or for research. Test performed at [facility], [address], [place], [place] ??[address] ? [phone] Ashtyn Leigh MD, PhD - Bridge Expert Blood Venous blood specimen / Unknown Venipuncture / Unknown 04/19/2024 6:21 AM EST 04/19/2024 8:33 AM EST us Marily Gordillo MD LAB BLOOD ORDERABLES Final Resul t [place] [address] * (ABNORMAL) Renal function panel (04/19/2024 6:21 AM EST) Sodium 144 133 - 145 mmol/L LAB CHEMISTRY METHOD 04/19/2024 9:42 AM [facility] Potassium 3.3(L) 3.5 - 5.5 mmol/L LAB CHEMISTRY METHOD 04/19/2024 9:42 AM [facility] Chloride 114(H) 96 - 110 mmol/L LAB CHEMISTRY METHOD 04/19/2024 9:42 AM [facility] CO2 22 21 - 32 mmol/L LAB CHEMISTRY METHOD 04/19/2024 9:42 AM [facility] Anion Gap 8 3 - 11 LAB CHEMISTRY METHOD 04/19/2024 9:42 AM [facility] Glucose 177(H) 70 - 100 mg/dL LAB CHEMISTRY METHOD 04/19/2024 9:42 AM [facility] BUN 42(H) 5 - 25 mg/dL LAB CHEMISTRY METHOD 04/19/2024 9:42 AM [facility] Creatinine 3.65(H) 0.50 - 1.10 mg/dL LAB CHEMISTRY METHOD 04/19/2024 9:42 AM [facility] eGFR 13(L) >=60 mL/min/1. 73m2 LAB CHEMISTRY METHOD 04/19/2024 9:42 AM [facility] Comment:Calculation based on the??Chronic Kidney Disease Epidemiology Collaboration (CKD-EPI) equation refit??without adjustment for race. BUN/Creatinine Ratio 11.5 LAB CHEMISTRY METHOD 04/19/2024 9:42 AM [facility] Albumin 2.0(L) 3.2 - 5.0 g/dL LAB CHEMISTRY METHOD 04/19/2024 9:42 AM EST [facility] Calcium 8.5 8.5 - 10.5 mg/dL LAB CHEMISTRY METHOD 04/19/2024 9:42 AM [facility] Phosphorus 2.6 2.5 - 4.5 mg/dL LAB CHEMISTRY METHOD 04/19/2024 9:42 AM [facility] Blood Venous blood specimen / Unknown Venipuncture / Unknown 04/19/2024 6:21 AM EST 04/19/2024 8:33 AM EST Marily Gordillo MD LAB BLOOD ORDERABLES Final Resul t [facility] [address] [place] [address], * (ABNORMAL) Complete blood count (04/19/2024 6:21 AM EST) WBC 12.0(H) 4.8 - 10.8 K/mcL LAB HEMETOLOGY METHOD 04/19/2024 9:26 AM [facility] RBC 2.80(L) 3.80 - 4.80 M/mcL LAB HEMETOLOGY METHOD 04/19/2024 9:26 AM [facility] Hemoglobin 7.6(L) 11.5 - 16.0 g/dL LAB HEMETOLOGY METHOD 04/19/2024 9:26 AM [facility] Hematocrit 27.3(L) 35.0 - 47.0 % LAB HEMETOLOGY METHOD 04/19/2024 9:26 AM [facility] MCV 98.2(H) 79.0 - 98.0 FL LAB HEMETOLOGY METHOD 04/19/2024 9:26 AM [facility] MCH 27.3 27.0 - 32.0 pcg LAB HEMETOLOGY METHOD 04/19/2024 9:26 AM EST [facility] MCHC 27.8(L) 32.0 - 37.0 g/dL LAB HEMETOLOGY METHOD 04/19/2024 9:26 AM [facility] RDW 16.6(H) 11.0 - 15.0 % LAB HEMETOLOGY METHOD 04/19/2024 9:26 AM [facility] Platelets 230 130 - 400 K/mcL LAB HEMETOLOGY METHOD 04/19/2024 9:26 AM [facility] MPV 10.9 7.0 - 11.0 FL LAB HEMETOLOGY METHOD 04/19/2024 9:26 AM [facility] NRBC 0.0 <1.0 % LAB HEMETOLOGY METHOD 04/19/2024 9:26 AM [facility] NRBC Absolute 0.00 <0.10 K/mcL LAB HEMETOLOGY METHOD 04/19/2024 9:26 AM [facility] Blood Venous blood specimen / Unknown Venipuncture / Unknown 04/19/2024 6:21 AM EST 04/19/2024 8:33 AM EST us Marily Gordillo MD LAB BLOOD ORDERABLES Final Resul t [facility] [address] [place] [address], documented in this encounter Visit Diagnoses Diagnosis Chronic embolism and thrombosis of unspecified vein Acute kidney failure, unspecified (CMS/HCC) Acute kidney failure, unspecified documented in this encounter Care Teams Retail Sales Merchandiser Relationship Specialty Start Date End Date Marita Wetzel DO [address] [place] [address] PCP - General 01/09/23 documented as of this encounter
--- OUTSIDE RECORDS SUMMARY | 2024-06-23 22:22 | XMS_ITS | Encounter Summary ---
Author Organization [facility] Address [address] [place] [address] Care Team Providers Care Core Finisher Name Role Phone Marita Wetzel DO Primary Care Provider +1- [phone] Encounter Details Date Type Department Care Team (Late st Contact Info) Description 04/28/2024 Lab Requisition [facility] - Main Lab 299 [facility] [employer] [place] [phone] Marily Gordillo MD [address] [place] [address] Chronic kidney disease, unspecified; Anemia, [...] unspecified documented in this encounter Care Teams Core Finisher Relationship Specialty Start Date End Date Marita Wetzel DO [address] [place] [address] PCP - General 01/09/23 documented as of this encounter
--- OUTSIDE RECORDS SUMMARY | 2024-06-23 22:22 | XMS_ITS | Encounter Summary ---
Author Organization [employer] Address [address] [place] [address] 7 [place] [address] Care Team Providers Care Door Builder Name Role Phone Marita Wetzel DO Primary Care Provider + [phone] Reason for Visit * Reason Onset Date Comments Med Refill 06/17/2024 Encounter Details Date Type Department Care Team (Late st Contact Info) Description 06/17/2024 Refill [facility] [address] [place] [address] Marita Wetzel DO [address] [place], [place] [phone] Social History Tobacco Use Types Packs/Day Years [...] encounter Miscellaneous Notes * Telephone Encounter - Marita Butler LPN - 06/17/2024 2:05 PM EST Will PCP be prescribing Isosorbide mononitrate? Next appointment 08/20/24. * Telephone Encounter - Rosalva Nice - 06/17/2024 1:43 PM EST TC from pt requesting medication refill. Medications needing refill : hydrOXYzine pamoate (Vistaril) 25 MG capsule isosorbide mononitrate ER (Imdur) 30 MG 24 hr tablet sertraline (Zoloft) 25 MG tablet sodium bicarbonate 650 MG tablet tacrolimus ER (Envarsus XR) 1 MG tablet ER To be sent to: [facility]/pharmacy #[id number] documented in this encounter Plan of Treatment Upcoming Encounters Date Type Department Care Team (Late st Contact Info) Description 08/20/2024 10:00 AM EDT Office Visit [facility] [address] [place], [place] [phone] Marita Wetzel DO [address] [place], [place] [phone] documented as of this encounter Goals Goal Patient Goal Type Associated Problems Recent Progress Patient-Stated? Author Hemoglobin A1c < 7 Result Component 5.9( 4 9:43 AM EDT) No Carmen Becker, Lg Record your blood sugar as directed Result Component No Carmen Becker, Lg Note: Use CGM, ensuring sensor is scanned at least once every 8 hours to capture 24H data. Check BG manually, as directed. documented as of this encounter Visit Diagnoses Not on filedocumented in this encounter Additional Health Concerns Assessment Noted Time PHQ-9 Depression Total Score: 0 10/09/19 23 9:31 AM EDT documented as of this encounter Care Teams Door Builder Relationship Specialty Start Date End Date Marita Wetzel DO [address] [place] [address] PCP - General Family Medicine 04/21/18 [facility] 05/22/24 documented as of this encounter
--- OUTSIDE RECORDS SUMMARY | 2024-06-23 22:22 | XMS_ITS | Encounter Summary ---
Author Organization [facility], Address [address] [place] [phone] Phone Care Team Providers Care Floor Worker Transfer [place] Name Role Phone Marita Wetzel DO Primary Care Provider Unava ilable Encounter Details Date Type Department Care Team (Late st Contact Info) Description 05/24/2024 Orders Only [facility] [address] [place] [phone] Srinivas Agrawal MD [address] [place] [address] [place] [phone] Social History Tobacco Use Types Packs/Day Years [...] Only [facility], - [facility] [address] [place] [address] [place] [phone] documented as of this encounter Procedures Procedure Name Priority Date/Time Associated Diagnosis Comments HEMATOLOGY Routine 05/24/2024 CHEMISTRY Routine 05/24/2024 documented in this encounter Results * (ABNORMAL) HEMATOLOGY (05/24/2024) Hemoglobin 8.5(L) 12.0 - 16.0 g/dL [facility] Hemoglobin x 3 25.5(L) 36.0 - 48.0 % [facility] 05/24/2024 05/25/2024 10: 21 AM EST Narrative [facility] - 05/25/2024 Unless otherwise specified, test(s) performed at: [facility], [address] [place] [address] WIRE COILER: Dwayne Fuentes M.D. For any questions, please call customer service at FREQUENCY:OTHER Resulting Agency Comment Specimen source: Blood Srinivas Agrawal MD LAB BLOOD ORDERABLES Final Result Performing Organization Address [facility] de Phone Number [employer] See order comments or contact performing lab Unknown, [place] * (ABNORMAL) [facility] (05/24/2024) Potassium 5.7(H) 3.5 - 5.1 mEq/L [facility] 05/24/2024 05/25/2024 9:0 6 AM EST Narrative [facility] - 05/25/2024 Unless otherwise specified, test(s) performed at: [facility], [address] [place] [address] WIRE COILER: Dwayne Fuentes M.D. For any questions, please call customer service at FREQUENCY:OTHER Resulting Agency Comment Specimen source: Serum Srinivas Agrawal MD LAB BLOOD ORDERABLES Final Result Performing Organization Address [facility] Co de Phone Number [employer] See order comments or contact performing lab Unknown, [place] documented in this encounter Visit Diagnoses Not on filedocumented in this encounter Care Teams Floor Worker [place] Relationship Specialty Start Date End Date Marita Wetzel DO [address] [place] [phone] PCP - General Family Medicine 11/14/22 documented as of this encounter
--- OUTSIDE RECORDS SUMMARY | 2024-06-23 22:22 | XMS_ITS | Continuity of Care Document ---
Author Organization [facility] ter Address [address] [place] [address]- Support Name Relationship Address Phone ARMIN BAILEY [...] Unava ilable CHIRAG, SUNNY child Unknown Unavailable WEST, SUNNY spouse Unknown Unavailable WEST, SUNNY spouse Unknown Unavailable OCASIO, GRETA F Personal Relationship Unknown Unavailable OCASIO, GRETA F F Personal Relationship Unknown Unavailable CHIRAG, SUNNY C Personal Relationship Unknown Ramona vailable CHIRAG, SUNNY spouse Unknown Unavailable WEST, SUNNY spouse Unknown Unavailable CHIRAG ALFRED child Unknown Unavailable Care Team Providers Care Placement Manager Name Role Phone Marita Wetzel DO Primary Care Physician [phone] Encounter [facility] ACCT R [id number] Date(s): 05/21/24 - 06/20/[address] [address]- Attending Physician: Not on Staff, Attending MD Admitting Physician: Not on Staff, Admitting MD Referring Physician: Not on Staff, Referring MD Encounter Type: Pre-Outpt Allergies, Adverse Reactions, Alerts Substance Criticality Severity [...] influenza virus vaccine, inactivated 01/23/11 Oliver rded [id number] bivalent booster vax 02/01/22 Recorded tetanus-diphtheria toxoids [...] Quantity: 180.0 Unit: tablet Repeat number: 1 Dilaudid 4 mg oral [...] Maintenance, 10/26/23 9:56:00 AM EDT, ER Tablet, [facility], Partial fill upon patient request if [...] 0 Refills, Maintenance, 11/23/23 10:39:00 AM EDT, [facility]/pharmacy #[id number], Partial fill upon patient request if [...] 45.0 Unit: tablet Repeat number: 1 Procrit 41691 u/ml injectable solution See Instructions, Subcutaneous Injection, [...] Nausea & vomiting Confirmed Active 1campath induction Social History Social History Type Response Smoking Status Never (less than 100 in lifetime) entered on: 01/10/23 Sex Sex Representation Female (finding) Patient Care team information Care Team Personnel Name: Naila Saucedo RN Position: [facility] RN Member Role: Primary Care Nurse Name: Heather Eagle RN Position: [facility] RN Member Role: Primary Care Nurse Name: Marita King RN Position: [facility] RN Member Role: Primary Care Nurse Name: Silvia Almazan RN Position: [facility] ED RN W/OE and Tasks Member Role: Primary Care Nurse Name: Navya Chauhan RN Position: [facility] RN Member Role: Primary Care Nurse Name: Maritza Alvarez RN Position: [facility] RN Member Role: Primary Care Nurse Name: Rachel Rucker RN Position: [facility] RN Member Role: Primary Care Nurse Name: Criss Pete Position: [facility] RN Member Role: Primary Care Nurse Name: Gianni Pacheco RN Position: [facility] RN Member Role: Primary Care Nurse Name: Myrna Kohler RN Position: [facility] RN Member Role: Primary Care Nurse Name: Pauline Aguayo Position: [facility] Outreach Member Role: Lifetime Consulting Physician Name: Marita Thakur RN Position: [facility] RN Member Role: Primary Care Nurse Name: Lanie Ferrell RN Position: [facility] RN Member Role: Primary Care Nurse Name: Tristen Branch MD Position: [facility] TEXTILE KNITTER MD Member Role: Lifetime TEXTILE KNITTER Physician Name: Kvng Hernandez RN Position: [facility] RN Member Role: Primary Care Nurse Name: Gena Jiang RN Position: [facility] RN Member Role: Primary Care Nurse Name: Geo Pitts LPN Position: [facility] RN Member Role: Primary Care Nurse Name: Sudhir Overton RN Position: [facility] RN Member Role: Primary Care Nurse Name: Sirisha Mccauley RN Position: [facility] RN Member Role: Primary Care Nurse Name: Marcelino Ramirez RN Position: [facility] RN Member Role: Primary Care Nurse Name: Scottie Hunter RN Position: [facility] RN Member Role: Primary Care Nurse Name: Vicki Carson NP Position: [facility] Associate Professional Member Role: Lifetime Consulting Provider Address: [address] [place], [place] [address] [place], [place] [address] Telecom: Name: Petros Lindquist MD Position: [facility] Renal MD Member Role: Lifetime Consulting Physician Address: [address] [facility] [address] [facility] [place], [place] [address] Telecom: Name: Lashanda Reese RN Position: S RN Member Role: Primary Care Nurse Name: Carmen Lucio RN Position: S RN Member Role: Primary Care Nurse Name: Estefany Willis RN Position: S RN Member Role: Primary Care Nurse Name: Miryam Amor RN Position: S RN Member Role: Primary Care Nurse Name: Marita Wtezel DO Position: [facility] Outreach Member Role: PCP Address: [address] [place] [id number] Telecom: Name: Temi Lind RN Position: S RN Member Role: Primary Care Nurse Name: De Valdovinos RN Position: [facility] RN Member Role: Primary Care Nurse Name: Chandrika Corbin RN Position: S RN Member Role: Primary Care Nurse Name: Liliana Villalta RN Position: [facility] RN Member Role: Primary Care Nurse Name: Jerod Adames DO Position: [facility] Renal MD Member Role: Lifetime Consulting Physician Address: [address] [facility] [address] [facility] [place], [place] [address] Telecom: Name: Breanna Walker RN Position: [facility] RN Member Role: Primary Care Nurse Name: Omayra Jeronimo RN Position: S RN Member Role: Primary Care Nurse Name: Yany Cobb RN Position: [facility] RN Member Role: Primary Care Nurse Name: David Schmitt RN Position: S RN Member Role: Primary Care Nurse Name: Madelaine Meyer RN Position: S RN Member Role: Primary Care Nurse Name: Jeremiah Suarez RN Position: S RN Member Role: Primary Care Nurse Name: Cecily Tamez Position: S RN Member Role: Primary Care Nurse Name: Gianni Cardoza RN Position: S RN Member Role: Primary Care Nurse Name: Ishaan Saucedo Position: [facility] RN Member Role: Primary Care Nurse Name: Ivan Dominguez RN Position: [facility] RN Member Role: Primary Care Nurse Name: Keisha Phelps RN Position: [facility] RN Member Role: Primary Care Nurse Name: Croy Red MD Position: [facility] Outreach Member Role: Lifetime Consulting Physician Address: [address] [facility] [address] Telecom: Name: Samina Juarez RN Position: [facility] RN Member Role: Primary Care Nurse Name: Regina Hassan RN Position: [facility] RN Member Role: Primary Care Nurse Name: Lamonte Huynh RN Position: [facility] RN Member Role: Primary Care Nurse Name: Radha Herron RN Position: [facility] RN Member Role: Primary Care Nurse Name: Nuvia Crenshaw RN Position: [facility] RN Member Role: Primary Care Nurse Name: Twila Pfeiffer RN Position: [facility] RN Member Role: Primary Care Nurse Name: Augusta Griffin RN Position: [facility] RN Member Role: Primary Care Nurse Name: Marisela Ambrose RN Position: [facility] RN Member Role: Primary Care Nurse Name: Cari Tabares RN Position: [facility] RN Member Role: Primary Care Nurse Name: Brian Washington RN Position: [facility] RN Member Role: Primary Care Nurse Name: Nadja Wilkes RN Position: [facility] RN Member Role: Primary Care Nurse Name: Yesenia Calderon RN Position: [facility] SN RN Member Role: Primary Care Nurse Name: Jose Francisco Magallanes MD Position: [facility] Renal MD Member Role: Lifetime Consulting Physician Address: [address] [facility] [place], [place] [address] Telecom: Name: Denise Major RN Position: [facility] RN Member Role: Primary Care Nurse Name: London Leong RN Position: [facility] OB RN Member Role: Primary Care Nurse Name: Nicolasa Riley RN Position: [facility] RN Member Role: Primary Care Nurse Name: Sameera Holloway RN Position: [facility] RN Member Role: Primary Care Nurse Name: Ariana Staton RN Position: [facility] RN Member Role: Primary Care Nurse Name: Marily Paula RN Position: [facility] RN Member Role: Primary Care Nurse Name: Sarita Jean Baptiste RN Position: [facility] RN Member Role: Primary Care Nurse Name: Michael Velez RN Position: [facility] RN Member Role: Primary Care Nurse Name: Samina Moeller RN Position: [facility] Hospital Spray Machine Tender Member Role: Primary Care Nurse Care Team Related Persons Name: ARMIN BAILEY Name: ALFRED BEARD Name: JOSE G BEARD Name: SUNNY BEARD Name: SUNNY BEARD Insurance Providers Guarantor name: GRETA BEARD [facility] Information #: 1 Payer: MEDICARE PART B OUTPT Member Number: NA Policy Number: NA Group Number: NA Health Plan Information #: 2 Payer: FOR LIFE MCR A ONLY Member Number: NA Policy Number: NA Group Number: NA
--- OUTSIDE RECORDS SUMMARY | 2024-06-23 22:22 | XMS_ITS | Encounter Summary ---
Author Organization [facility] Address [address] [place] [address] Phone Care Team Providers Care Complaint Investigations Officer Name Role Phone Marita Wetzel DO Primary Care Provider Unava ilable Encounter Details Date Type Department Care Team (Late st Contact Info) Description 04/17/2024 Documentation Only [facility] [address] [facility] [place] [phone] [place] [address] [place] [phone] Social History Tobacco Use Types Packs/Day Years [...] Only [facility] [address] [facility] [place] [phone] documented as of this encounter Visit Diagnoses Not on filedocumented in this encounter Care Teams Complaint Investigations Officer Relationship Specialty Start Date End Date Marita Wetzel DO [address] [place] [address] PCP - General Family Medicine 11/14/22 documented as of this encounter
--- OUTSIDE RECORDS SUMMARY | 2024-06-23 22:22 | XMS_ITS | Encounter Summary ---
Author Organization [employer] Address [address] [place] [address] 7 [place] [address] Care Team Providers Care Electrical Tester Name Role Phone Marita Wetzel DO Primary Care Provider + [phone] Reason for Visit * Reason Comments Transition Of Care (Tcm) HDF unscheduled Encounter Details Date Type Department Care Team (Late st Contact Info) Description 06/11/2024 Patient Outreach [facility] [address] [place] [address] Marita Wetzel DO [address] [place] [address] Transition Of Care (Tcm) (HDF unscheduled) Social History Tobacco Use Types Packs/Day Years [...] AM EDT documented as of this encounter Progress Notes * Camryn Murrieta - 06/11/2024 2:36 PM EST YARIEL Cowan placed outbound call to patient for HDF outreach after an internal message was sent to [facility] patient requesting an HDF. CC placing call to [facility] No answer at this time. Patient's name and were not confirmed. CC was unable to leavea voicemail at this time. documented in this encounter Plan of Treatment Upcoming Encounters Date Type Department Care Team (Late st Contact Info) Description 08/20/2024 10:00 AM EDT Office Visit [facility] [address] [place] [address] Marita Wetzel DO [address] [place] [address] documented as of this encounter Goals Goal Patient Goal Type Associated Problems Recent Progress Patient-Stated? Author Hemoglobin A1c < 7 Result Component 5.9( 4 9:43 AM EDT) No PuiaCarmen, PharmD Record your blood sugar as directed Result Component No Pujeffrey Carmen, PharmD Note: Use CGM, ensuring sensor is scanned at least once every 8 hours to capture 24H data. Check BG manually, as directed. documented as of this encounter Visit Diagnoses Not on filedocumented in this encounter Additional Health Concerns Assessment Noted Time PHQ-9 Depression Total Score: 0 10/09/19 23 9:31 AM EDT documented as of this encounter Care Teams Electrical Tester Relationship Specialty Start Date End Date Marita Wetzel DO [address] [place] [address] PCP - General Family Medicine 04/21/18 [facility] 05/22/24 documented as of this encounter
--- OUTSIDE RECORDS SUMMARY | 2024-06-23 22:22 | XMS_ITS | Encounter Summary ---
Author Organization [facility] Address [address] [place] [address] Care Team Providers Care Oceanographer Assistant Name Role Phone Mary JaneMarita yousif Primary Care Provider [phone] Encounter Details Date Type Department Care Team (Late st Contact Info) Description 03/01/2024 Lab Requisition [facility] [place] [facility] - Main Lab [address] [facility] [place] [address] Catalina Burr MD [address] [place] [address] End stage renal disease (CMS/HCC); Type 2 [...] LAB CHEMISTRY METHOD 03/01/2024 11:27 AM EST [facility] Blood Venous blood specimen / Unknown Venipuncture / Unknown 03/01/2024 6:56 AM EST 03/01/2024 9:07 AM EST Catalina Burr MD LAB BLOOD ORDERABLES Final Resul t Performing Organization Address City/[facility]/ZIP Co de Phone Number [facility] [address] [place] [address], [place] [phone] * (ABNORMAL) Iron (03/01/2024 6:56 AM EST) Pathologist [facility] Iron 29(L) 40 - 150 mcg/dL LAB CHEMISTRY METHOD 03/01/2024 11:22 AM EST [facility] Blood Venous blood specimen / Unknown Venipuncture / Unknown 03/01/2024 6:56 AM EST 03/01/2024 9:07 AM EST Catalina uBrr MD LAB BLOOD ORDERABLES Final Resul t [facility] [address] [place] [address], [place] [phone] * Tacrolimus level (03/01/2024 6:56 AM EST) Tacrolimus Level 5.2 5.0 - 20.0 ng/mL [...] developed and the performance characteristics determined by [facility]. This confirmation testing has not been cleared or approved by the FDA. The laboratory is regulated under CLIA as qualified to perform high-complexity testing. This test is used for patient testing purposes. It should not be regarded as investigational or for research. Test performed at [facility], [facility] [address] [place], [place] [address] ? [phone] Ashtyn Leigh MD, PhD - [facility] Blood Venous blood specimen / Unknown Venipuncture / Unknown 03/01/2024 6:56 AM EST 03/01/2024 9:07 AM EST us Catalina Burr MD LAB BLOOD ORDERABLES Final Resul t [place] [address] * (ABNORMAL) Renal function panel (03/01/2024 6:56 AM EST) Sodium 140 133 - 145 mmol/L LAB CHEMISTRY METHOD 03/01/2024 11:04 AM [facility] Potassium 3.4(L) 3.5 - 5.5 mmol/L LAB CHEMISTRY METHOD 03/01/2024 11:04 AM [facility] Chloride 107 96 - 110 mmol/L LAB CHEMISTRY METHOD 03/01/2024 11:04 AM [facility] CO2 24 21 - 32 mmol/L LAB CHEMISTRY METHOD 03/01/2024 11:04 AM [facility] Anion Gap 9 3 - 11 LAB CHEMISTRY METHOD 03/01/2024 11:04 AM [facility] Glucose 107(H) 70 - 100 mg/dL LAB CHEMISTRY METHOD 03/01/2024 11:04 AM [facility] BUN 26(H) 5 - 25 mg/dL LAB CHEMISTRY METHOD 03/01/2024 11:04 AM [facility] Creatinine 2.88(H) 0.50 - 1.10 mg/dL LAB CHEMISTRY METHOD 03/01/2024 11:04 AM [facility] eGFR 18(L) >=60 mL/min/1. 73m2 LAB CHEMISTRY METHOD 03/01/2024 11:04 AM [facility] Comment:Calculation based on the??Chronic Kidney Disease Epidemiology Collaboration (CKD-EPI) equation refit??without adjustment for race. BUN/Creatinine Ratio 9.0 LAB CHEMISTRY METHOD 03/01/2024 11:04 AM [facility] Albumin 2.3(L) 3.2 - 5.0 g/dL LAB CHEMISTRY METHOD 03/01/2024 11:04 AM [facility] Calcium 8.9 8.5 - 10.5 mg/dL LAB CHEMISTRY METHOD 03/01/2024 11:04 AM [facility] Phosphorus 1.9(L) 2.5 - 4.5 mg/dL LAB CHEMISTRY METHOD 03/01/2024 11:04 AM [facility] Blood Venous blood specimen / Unknown Venipuncture / Unknown 03/01/2024 6:56 AM EST 03/01/2024 9:07 AM EST us Catalina Burr MD LAB BLOOD ORDERABLES Final Resul t [facility] [address] [place] [address], * (ABNORMAL) Complete blood count (03/01/2024 6:56 AM EST) WBC 10.2 4.8 - 10.8 K/mcL LAB HEMETOLOGY METHOD 03/01/2024 10:46 AM [facility] RBC 2.70(L) 3.80 - 4.80 M/mcL LAB HEMETOLOGY METHOD 03/01/2024 10:46 AM [facility] Hemoglobin 7.5(L) 11.5 - 16.0 g/dL LAB HEMETOLOGY METHOD 03/01/2024 10:46 AM [facility] Hematocrit 26.1(L) 35.0 - 47.0 % LAB HEMETOLOGY METHOD 03/01/2024 10:46 AM [facility] MCV 97.8 79.0 - 98.0 FL LAB HEMETOLOGY METHOD 03/01/2024 10:46 AM [facility] MCH 28.1 27.0 - 32.0 pcg LAB HEMETOLOGY METHOD 03/01/2024 10:46 AM [facility] MCHC 28.7(L) 32.0 - 37.0 g/dL LAB HEMETOLOGY METHOD 03/01/2024 10:46 AM EST [facility] RDW 16.7(H) 11.0 - 15.0 % LAB HEMETOLOGY METHOD 03/01/2024 10:46 AM EST [facility] Platelets 235 130 - 400 K/mcL LAB HEMETOLOGY METHOD 03/01/2024 10:46 AM [facility] MPV 10.8 7.0 - 11.0 FL LAB HEMETOLOGY METHOD 03/01/2024 10:46 AM EST [facility] NRBC 0.0 <1.0 % LAB HEMETOLOGY METHOD 03/01/2024 10:46 AM [facility] NRBC Absolute 0.00 <0.10 K/mcL LAB HEMETOLOGY METHOD 03/01/2024 10:46 AM [facility] Blood Venous blood specimen / Unknown Venipuncture / Unknown 03/01/2024 6:56 AM EST 03/01/2024 9:07 AM EST us Catalina Burr MD LAB BLOOD ORDERABLES Final Resul t [facility] [address] [place] [address], documented in this encounter Visit Diagnoses Diagnosis End stage renal disease (CMS/HCC) End stage renal disease Type 2 diabetes mellitus without complications (CMS/HCC) documented in this encounter Care Teams Oceanographer Assistant Relationship Specialty Start Date End Date Marita Wetzel DO [address] [place] [address] PCP - General 01/09/23 documented as of this encounter
--- OUTSIDE RECORDS SUMMARY | 2024-06-23 22:22 | XMS_ITS | Continuity of Care Document ---
Author Organization [facility] ter Address [address] [place] [address]- Support Name Relationship Address Phone ARMIN BAILEY [...] BEARD C Personal Relationship Unknown Ramona vailable CHIRAG, SUNNY spouse Unknown Unavailable CHIRAG, SUNNY spouse Unknown Unavailable ALFRED BEARD child Unknown Unavailable Care Team Providers Care Casting Plug Assembler Name Role Phone Marita Wetzel DO Primary Care Physician [phone] [place] [facility] [place]): [place] - 06/17/[address] [address]- Attending Physician: Van Sharma MD Admitting Physician: Van Sharma MD Encounter Type: Preadmit Daystay Allergies, Adverse Reactions, Alerts Substance Criticality Severity [...] influenza virus vaccine, inactivated 01/23/11 Oliver rded [id number] bivalent booster vax 02/01/22 Recorded tetanus-diphtheria toxoids [...] Maintenance, 10/26/23 9:56:00 AM EDT, ER Tablet, [facility], Partial fill upon patient request [...] 0 Refills, Maintenance, 11/23/23 10:39:00 AM EDT, [facility] #[id number], Partial fill upon patient request if [...] 45.0 Unit: tablet Repeat number: 1 Procrit 35944 u/ml injectable solution See Instructions, Subcutaneous Injection, [...] Team Personnel Name: Naila Saucedo RN Position: [facility] RN Member Role: Primary Care Nurse Name: Heather Eagle RN Position: [facility] RN Member Role: Primary Care Nurse Name: Marita King RN Position: [facility] RN Member Role: Primary Care Nurse Name: Silvia Almazan RN Position: [facility] ED RN W/OE and Tasks Member Role: Primary Care Nurse Name: Navya Chauhan RN Position: [facility] RN Member Role: Primary Care Nurse Name: Maritza Alvarez RN Position: [facility] RN Member Role: Primary Care Nurse Name: Rachel Rucker RN Position: [facility] RN Member Role: Primary Care Nurse Name: Criss Pete Position: [facility] RN Member Role: Primary Care Nurse Name: Gianni Pacheco RN Position: [facility] RN Member Role: Primary Care Nurse Name: Myrna Kohler RN Position: [facility] RN Member Role: Primary Care Nurse Name: Pauline Aguayo Position: [facility] Outreach Member Role: Lifetime Consulting Physician Name: Marita Thakur RN Position: [facility] RN Member Role: Primary Care Nurse Name: Lanie Ferrell RN Position: [facility] RN Member Role: Primary Care Nurse Name: Tristen Branch MD Position: [facility] ROAST MASTER MD Member Role: Lifetime ROAST MASTER Physician Name: Kvng Hernandez RN Position: [facility] RN Member Role: Primary Care Nurse Name: Gena Jiang RN Position: [facility] RN Member Role: Primary Care Nurse Name: Geo Pitts LPN Position: [facility] RN Member Role: Primary Care Nurse Name: Sudhir Overton RN Position: [facility] RN Member Role: Primary Care Nurse Name: Sirisha Mccauley RN Position: [facility] RN Member Role: Primary Care Nurse Name: Marcelino Ramirez RN Position: [facility] RN Member Role: Primary Care Nurse Name: Scottie Hunter RN Position: [facility] RN Member Role: Primary Care Nurse Name: Vicki Carson NP Position: [facility] Associate Professional Member Role: Lifetime Consulting Provider Address: [address] [place], [place] [address] [address] Telecom: Name: Petros Lindquist MD Position: [facility] Renal MD Member Role: Lifetime Consulting Physician Address: [address] [facility] [place], [place] [address] Telecom: Name: Lashanda Reese RN Position: S RN Member Role: Primary Care Nurse Name: Carmen Lucio RN Position: S RN Member Role: Primary Care Nurse Name: Estefany Willis RN Position: S RN Member Role: Primary Care Nurse Name: Miryam Amor RN Position: S RN Member Role: Primary Care Nurse Name: Marita Wetzel DO Position: [facility] Outreach Member Role: PCP Address: [address] [place] [id number] Telecom: Name: Temi Lind RN Position: S RN Member Role: Primary Care Nurse Name: De Valdovinos RN Position: [facility] RN Member Role: Primary Care Nurse Name: Chandrika Corbin RN Position: S RN Member Role: Primary Care Nurse Name: Liliana Villalta RN Position: [facility] RN Member Role: Primary Care Nurse Name: Jerod Adames DO Position: [facility] Renal MD Member Role: Lifetime Consulting Physician Address: [address] [facility] [place], [place] [address] Telecom: Name: Breanna Walker RN Position: [facility] RN Member Role: Primary Care Nurse Name: Omayra Jeronimo RN Position: [facility] RN Member Role: Primary Care Nurse Name: Yany Cobb RN Position: S RN Member Role: Primary Care Nurse Name: David Schmitt RN Position: [facility] RN Member Role: Primary Care Nurse Name: Madelaine Meyer RN Position: [facility] RN Member Role: Primary Care Nurse Name: Jeremiah Suarez RN Position: S RN Member Role: Primary Care Nurse Name: Cecily Tamez Position: S RN Member Role: Primary Care Nurse Name: Gianni Cardoza RN Position: S RN Member Role: Primary Care Nurse Name: Ishaan Saucedo Position: [facility] RN Member Role: Primary Care Nurse Name: Ivan Dominguez RN Position: [facility] RN Member Role: Primary Care Nurse Name: Keisha Phelps RN Position: [facility] RN Member Role: Primary Care Nurse Name: Cory Red MD Position: [facility] Outreach Member Role: Lifetime Consulting Physician Address: [address] [facility] [address] Telecom: Name: Samina Juarez RN Position: [facility] RN Member Role: Primary Care Nurse Name: Regina Hassan RN Position: [facility] RN Member Role: Primary Care Nurse Name: Lamonte Huynh RN Position: [facility] RN Member Role: Primary Care Nurse Name: Radha Herron RN Position: [facility] RN Member Role: Primary Care Nurse Name: Nuvia Crenshaw RN Position: [facility] RN Member Role: Primary Care Nurse Name: Twila Pfeiffer RN Position: [facility] RN Member Role: Primary Care Nurse Name: Augusta Griffin RN Position: [facility] RN Member Role: Primary Care Nurse Name: Marisela Ambrose RN Position: [facility] RN Member Role: Primary Care Nurse Name: Cari Tabares RN Position: [facility] RN Member Role: Primary Care Nurse Name: Brian Washington RN Position: [facility] RN Member Role: Primary Care Nurse Name: Nadja Wilkes RN Position: [facility] RN Member Role: Primary Care Nurse Name: Yesenia Calderon RN Position: [facility] SN RN Member Role: Primary Care Nurse Name: Jose Francisco Magallanes MD Position: [facility] Renal MD Member Role: Lifetime Consulting Physician Address: [address] [facility] [place], [place] [address] Telecom: Name: Denise Major RN Position: [facility] RN Member Role: Primary Care Nurse Name: London Leong RN Position: [facility] OB RN Member Role: Primary Care Nurse Name: Nicolasa Riley RN Position: [facility] RN Member Role: Primary Care Nurse Name: Sameera Holloway RN Position: [facility] RN Member Role: Primary Care Nurse Name: Ariana Staton RN Position: [facility] RN Member Role: Primary Care Nurse Name: Marily Paula RN Position: [facility] RN Member Role: Primary Care Nurse Name: Sarita Jean Baptiste RN Position: [facility] RN Member Role: Primary Care Nurse Name: Michael Velez RN Position: [facility] RN Member Role: Primary Care Nurse Name: Samina Moeller RN Position: [facility] Senior Controls Technician Member Role: Primary Care Nurse Care Team Related Persons Name: LEO, ARMIN Name: ALFRED BEARD Name: JOSE G BEADR Name: SUNNY BEARD Name: SUNNY BEARD Insurance Providers Guarantor name: [facility] Information #: 2 Payer: [facility] MCR A ONLY Member Number: [id number] Policy Number: NA Group Number: [id number] Health Plan Information #: 1 Payer: MEDICARE PART B OUTPT Member Number: [id number] Policy Number: NA Group Number: NA
--- OUTSIDE RECORDS SUMMARY | 2024-06-23 22:22 | XMS_ITS | Encounter Summary ---
Author Organization [facility], Address [address] [place] [address] Phone Care Team Providers Care Associate Professor Of Musicology Name Role Phone Marita Wetzel DO Primary Care Provider Unava ilable Encounter Details Date Type Department Care Team (Late st Contact Info) Description 05/24/2024 Treatment [facility], [address] [place] [phone] Jeanne Bailey MD [facility] [address] [place] [address] Social History Tobacco Use Types Packs/Day Years [...] AM EST Patient: Alix Sharp : 1960 [facility]: [facility] Note Type: Dialysis Rounds-Comp Service Date: 05/24/2024 This patient was personally seen for a complete visit as part of routine monthly dialysis care for end stage renal disease. Attending Cardiothoracic Physiotherapist: JEANNE BAILEY Dialysis Location: [facility] Schedule: Shift: 3 OVERVIEW COMMENTS: New [...] Run even or positive. HOME MEDICATIONS Current [facility] Outpatient Medications amlodipine 10 mg tablet Take [...] capsule by mouth once a day. Current [facility] Allergies Allergen: codeine Reaction: Unknown Allergen: [...] K, 2.50 Ca, 1.0 Mg, 100 Dextrose ([id number]) Sodium: 137 Bicarb: 35 Pre Dialysis Vitals Pre BP Sit: 124/59 Pre Wt (kg): 46.4 EDW Deviation (kg): 0.9 Temp: 98.0*F Current Dialysis Vitals BP Sit: 105/63 AP/APPAREL DESIGNER: 26/42 Pulse: 70 TREATMENT MEDICATIONS ORDERS Mircera [...] reviewed. Dietary adjustments made in conjunction with yarn hauler. 7.Transplant: Not a candidate. decreasing tacrolimus doing [...] reviewed. Dietary adjustments made in conjunction with yarn hauler. Transplant: The patient will be re-evaluated for a kidney transplant. Signed by: JEANNE BAILEY MD on 05/24/2024 at 05:41:26 PM Transcribed by: JEANNE BAILEY MD on 05/24/2024 at 05:41:26 PM documented in this encounter Plan of Treatment Upcoming Encounters Date Type Department Care Team (Late st Contact Info) Description 07/13/2024 12:30 PM EDT Scheduled Only [facility] [address] [place] [address] documented as of this encounter Visit Diagnoses Not on filedocumented in this encounter Care Teams Associate Professor Of Musicology Relationship Specialty Start Date End Date Marita Wetzel DO [address] [place] [address] PCP - General Family Medicine 11/14/22 documented as of this encounter
--- OUTSIDE RECORDS SUMMARY | 2024-06-23 22:22 | XMS_ITS | Encounter Summary ---
Author Organization [facility] Address [address] [place] [address] Care Team Providers Care Plater Production Name Role Phone Mary JaneMarita yousif Primary Care Provider [phone] Encounter Details Date Type Department Care Team (Late st Contact Info) Description 03/05/2024 Lab Requisition [facility] - Main Lab [address] [facility] [place] [address] Catalina Burr MD [address] [place] [address] Chronic embolism and thrombosis of unspecified vein; [...] developed and the performance characteristics determined by [facility]. This confirmation testing has not been cleared or approved by the FDA. The laboratory is regulated under CLIA as qualified to perform high-complexity testing. This test is used for patient testing purposes. It should not be regarded as investigational or for research. Test performed at [facility], [address], [place], [place] [address] ? [phone] Ashtyn Leigh MD, PhD - Showroom Salesperson Blood Venous blood specimen / Unknown Venipuncture / Unknown 03/08/2024 6:29 AM EST 03/08/2024 7:46 AM EST us Catalina Burr MD LAB BLOOD ORDERABLES Final Resul t [facility] [address] [place] [address] * (ABNORMAL) Renal function panel (03/08/2024 6:29 AM EST) Sodium 139 133 - 145 mmol/L LAB CHEMISTRY METHOD 03/08/2024 8:58 AM [facility] Potassium 4.5 3.5 - 5.5 mmol/L LAB CHEMISTRY METHOD 03/08/2024 8:58 AM [facility] Chloride 108 96 - 110 mmol/L LAB CHEMISTRY METHOD 03/08/2024 8:58 AM [facility] CO2 20(L) 21 - 32 mmol/L LAB CHEMISTRY METHOD 03/08/2024 8:58 AM [facility] Anion Gap 11 3 - 11 LAB CHEMISTRY METHOD 03/08/2024 8:58 AM [facility] Glucose 93 70 - 100 mg/dL LAB CHEMISTRY METHOD 03/08/2024 8:58 AM [facility] BUN 35(H) 5 - 25 mg/dL LAB CHEMISTRY METHOD 03/08/2024 8:58 AM [facility] Creatinine 3.99(H) 0.50 - 1.10 mg/dL LAB CHEMISTRY METHOD 03/08/2024 8:58 AM [facility] eGFR 12(L) >=60 mL/min/1. 73m2 LAB CHEMISTRY METHOD 03/08/2024 8:58 AM [facility] Comment:Calculation based on the??Chronic Kidney Disease Epidemiology Collaboration (CKD-EPI) equation refit??without adjustment for race. BUN/Creatinine Ratio 8.8 LAB CHEMISTRY METHOD 03/08/2024 8:58 AM EST [facility] Albumin 2.3(L) 3.2 - 5.0 g/dL LAB CHEMISTRY METHOD 03/08/2024 8:58 AM [facility] Calcium 9.0 8.5 - 10.5 mg/dL LAB CHEMISTRY METHOD 03/08/2024 8:58 AM [facility] Phosphorus 3.2 2.5 - 4.5 mg/dL LAB CHEMISTRY METHOD 03/08/2024 8:58 AM [facility] Blood Venous blood specimen / Unknown Venipuncture / Unknown 03/08/2024 6:29 AM EST 03/08/2024 7:46 AM EST us Catalina Burr MD LAB BLOOD ORDERABLES Final Resul t [facility] [address] [place] [address], [place] [phone] * (ABNORMAL) Complete blood count (03/08/2024 6:29 AM EST) WBC 9.8 4.8 - 10.8 K/mcL LAB HEMETOLOGY METHOD 03/08/2024 8:10 AM [facility] RBC 2.90(L) 3.80 - 4.80 M/mcL LAB HEMETOLOGY METHOD 03/08/2024 8:10 AM [facility] Hemoglobin 7.9(L) 11.5 - 16.0 g/dL LAB HEMETOLOGY METHOD 03/08/2024 8:10 AM [facility] Hematocrit 28.5(L) 35.0 - 47.0 % LAB HEMETOLOGY METHOD 03/08/2024 8:10 AM [facility] MCV 99.3(H) 79.0 - 98.0 FL LAB HEMETOLOGY METHOD 03/08/2024 8:10 AM EST [facility] MCH 27.5 27.0 - 32.0 pcg LAB HEMETOLOGY METHOD 03/08/2024 8:10 AM EST [facility] MCHC 27.7(L) 32.0 - 37.0 g/dL LAB HEMETOLOGY METHOD 03/08/2024 8:10 AM EST [facility] RDW 17.2(H) 11.0 - 15.0 % LAB HEMETOLOGY METHOD 03/08/2024 8:10 AM EST [facility] Platelets 299 130 - 400 K/mcL LAB HEMETOLOGY METHOD 03/08/2024 8:10 AM EST [facility] MPV 11.5(H) 7.0 - 11.0 FL LAB HEMETOLOGY METHOD 03/08/2024 8:10 AM EST [facility] NRBC 0.0 <1.0 % LAB HEMETOLOGY METHOD 03/08/2024 8:10 AM EST [facility] NRBC Absolute 0.00 <0.10 K/mcL LAB HEMETOLOGY METHOD 03/08/2024 8:10 AM [facility] Blood Venous blood specimen / Unknown Venipuncture / Unknown 03/08/2024 6:29 AM EST 03/08/2024 7:46 AM EST us Catalina Burr MD LAB BLOOD ORDERABLES Final Resul t [facility] [address] [place] [address], [place] [phone] documented in this encounter Visit Diagnoses Diagnosis Chronic embolism and thrombosis of unspecified vein Acute kidney failure, unspecified (CMS/HCC) Acute kidney failure, unspecified Type 2 diabetes mellitus without complications (CMS/HCC) documented in this encounter Care Teams Plater Production Relationship Specialty Start Date End Date Marita Wetzel DO [address] [place] [address] PCP - General 01/09/23 documented as of this encounter
--- OUTSIDE RECORDS SUMMARY | 2024-06-23 22:22 | XMS_ITS | Encounter Summary ---
Author Organization [facility] Address [address] [place] [address] Phone Care Team Providers Care Chief Optometry Service Name Role Phone Marita Wetzel DO Primary Care Provider Unava ilable Encounter Details Date Type Department Care Team (Late st Contact Info) Description 01/01/2024 Documentation Only [facility] [address] [place] [phone] [place] [address] [place] [phone] Social History Tobacco Use Types Packs/Day Years [...] Only [facility] [address] [place] [phone] documented as of this encounter Visit Diagnoses Not on filedocumented in this encounter Care Teams Chief Optometry Service Relationship Specialty Start Date End Date Marita Wetzel DO [address] [place] [address] PCP - General Family Medicine 11/14/22 documented as of this encounter
--- OUTSIDE RECORDS SUMMARY | 2024-06-23 22:22 | XMS_ITS | Encounter Summary ---
Author Organization [facility] Address [address] [place] [address] Care Team Providers Care Dental Hygienist Mobile Coordinator Name Role Phone Mary JaneMarita yousif Primary Care Provider +1- [phone] Encounter Details Date Type Department Care Team (Late st Contact Info) Description 04/17/2024 Lab Requisition [facility] - Main Lab [address] [facility] [place] [address] Catalina Burr MD [address] [place] [address] End stage renal disease (CMS/HCC); Anemia, unspecified [...] at [facility], [address] , [place], [place] ??[address] ? [phone] Ashtyn Leigh MD, PhD - [employer] Blood Venous blood specimen / Unknown Venipuncture / Unknown 04/17/2024 5:33 AM EST 04/17/2024 9:33 AM EST Catalina Burr MD LAB BLOOD ORDERABLES Final Resul t [facility] [address] [place] [address] * (ABNORMAL) Reticulocyte count (04/17/2024 5:33 AM EST) Retic Ct Abs 0.050 0.030 - 0.090 M/mcL LAB HEMETOLOGY METHOD 04/17/2024 10:42 AM EST [facility] Retic Ct Pct 1.8(H) 0.7 - 1.7 % LAB HEMETOLOGY METHOD 04/17/2024 10:[address] [facility] Immature Retic Fract 24.7(H) 2.3 - 15.9 % LAB HEMETOLOGY METHOD 04/17/2024 10:42 AM EST [facility] Reticulocyte Hemoglobin 28.3(L) >29.0 pcg LAB HEMETOLOGY METHOD 04/17/2024 10:[address] [facility] Blood Venous blood specimen / Unknown Venipuncture / Unknown 04/17/2024 5:33 AM EST 04/17/2024 9:33 AM EST us Catalina Burr MD LAB BLOOD ORDERABLES Final Resul t [facility] [address] [place] [address], [place] [phone] * (ABNORMAL) Comprehensive metabolic panel (04/17/2024 5:33 AM EST) Sodium 146(H) 133 - 145 mmol/L LAB CHEMISTRY METHOD 04/17/2024 11:02 AM EST [facility] Potassium 3.4(L) 3.5 - 5.5 mmol/L LAB CHEMISTRY METHOD 04/17/2024 11:[address] [facility] Chloride 116(H) 96 - 110 mmol/L LAB CHEMISTRY METHOD 04/17/2024 11:[address] [facility] CO2 21 21 - 32 mmol/L LAB CHEMISTRY METHOD 04/17/2024 11:[address] [facility] Anion Gap 9 3 - 11 LAB CHEMISTRY METHOD 04/17/2024 11:[address] [facility] Glucose 61(L) 70 - 100 mg/dL LAB CHEMISTRY METHOD 04/17/2024 11:[address] [facility] BUN 48(H) 5 - 25 mg/dL LAB CHEMISTRY METHOD 04/17/2024 11:[address] [facility] Creatinine 3.71(H) 0.50 - 1.10 mg/dL LAB CHEMISTRY METHOD 04/17/2024 11:[address] [facility] eGFR 13(L) >=60 mL/min/1. 73m2 LAB CHEMISTRY METHOD 04/17/2024 11:[address] [facility] Comment:Calculation based on the??Chronic Kidney Disease Epidemiology Collaboration (CKD-EPI) equation refit??without adjustment for race. BUN/Creatinine Ratio 12.9 LAB CHEMISTRY METHOD 04/17/2024 11:[address] [facility] Calcium 8.7 8.5 - 10.5 mg/dL LAB CHEMISTRY METHOD 04/17/2024 11:[address] [facility] AST (SGOT) 8(L) 10 - 42 unit/L LAB CHEMISTRY METHOD 04/17/2024 11:[address] [facility] ALT (SGPT) 9(L) 10 - 60 unit/L LAB CHEMISTRY METHOD 04/17/2024 11:[address] [facility] Alkaline Phosphatase 61 42 - 121 unit/L LAB CHEMISTRY METHOD 04/17/2024 11:[address] [facility] Total Protein 5.6(L) 6.0 - 8.0 g/dL LAB CHEMISTRY METHOD 04/17/2024 11:[address] [facility] Albumin 2.0(L) 3.2 - 5.0 g/dL LAB CHEMISTRY METHOD 04/17/2024 11:[address] [facility] Total Bilirubin 0.5 0.0 - 1.4 mg/dL LAB CHEMISTRY METHOD 04/17/2024 11:[address] [facility] Blood Venous blood specimen / Unknown Venipuncture / Unknown 04/17/2024 5:33 AM EST 04/17/2024 9:33 AM EST Catalina Burr MD LAB BLOOD ORDERABLES Final Resul t [facility] [address] [place] [address], * (ABNORMAL) Complete blood count (04/17/2024 5:33 AM EST) WBC 9.3 4.8 - 10.8 K/mcL LAB HEMETOLOGY METHOD 04/17/2024 10:[address] [facility] RBC 3.10(L) 3.80 - 4.80 M/mcL LAB HEMETOLOGY METHOD 04/17/2024 10:[address] [facility] Hemoglobin 8.3(L) 11.5 - 16.0 g/dL LAB HEMETOLOGY METHOD 04/17/2024 10:[address] [facility] Hematocrit 30.3(L) 35.0 - 47.0 % LAB HEMETOLOGY METHOD 04/17/2024 10:[address] [facility] MCV 98.1(H) 79.0 - 98.0 FL LAB HEMETOLOGY METHOD 04/17/2024 10:[address] [facility] MCH 26.9(L) 27.0 - 32.0 pcg LAB HEMETOLOGY METHOD 04/17/2024 10:[address] [facility] MCHC 27.4(L) 32.0 - 37.0 g/dL LAB HEMETOLOGY METHOD 04/17/2024 10:[address] [facility] RDW 16.9(H) 11.0 - 15.0 % LAB HEMETOLOGY METHOD 04/17/2024 10:[address] [facility] Platelets 206 130 - 400 K/mcL LAB HEMETOLOGY METHOD 04/17/2024 10:[address] [facility] MPV 10.1 7.0 - 11.0 FL LAB HEMETOLOGY METHOD 04/17/2024 10:[address] [facility] NRBC 0.0 <1.0 % LAB HEMETOLOGY METHOD 04/17/2024 10:[address] [facility] NRBC Absolute 0.00 <0.10 K/mcL LAB HEMETOLOGY METHOD 04/17/2024 10:[address] [facility] Blood Venous blood specimen / Unknown Venipuncture / Unknown 04/17/2024 5:33 AM EST 04/17/2024 9:33 AM EST us Catalina Burr MD LAB BLOOD ORDERABLES Final Resul t [facility] [address] [place] [address], documented in this encounter Visit Diagnoses Diagnosis End stage renal disease ([facility]) End stage renal disease Anemia, unspecified documented in this encounter Care Teams Dental Hygienist Mobile Coordinator Relationship Specialty Start Date End Date Marita Wetzel DO [address] [place] [address] PCP - General 01/09/23 documented as of this encounter
--- OUTSIDE RECORDS SUMMARY | 2024-06-23 22:22 | XMS_ITS | Encounter Summary ---
Author Organization [facility] Address [address] [place] [address] Care Team Providers Care Echocardiography Technologist Name Role Phone Mary JaneMarita yousif Primary Care Provider +1- [phone] Encounter Details Date Type Department Care Team (Late st Contact Info) Description 03/30/2024 Lab Requisition [facility] - Main Lab [address] [facility] [place] [address] Catalina Burr MD [address] [place] [address] Chronic embolism and thrombosis of unspecified vein; [...] LAB CHEMISTRY METHOD 03/31/2024 12:06 PM EST [facility] Blood Venous blood specimen / Unknown Venipuncture / Unknown 03/31/2024 9:23 AM EST 03/31/2024 11:25 AM EST Catalina Burr MD LAB BLOOD ORDERABLES Final Resul t Performing Organization Address [facility]/ZIP Co de Phone Number [facility] [address] [place] [address], [place] [phone] * (ABNORMAL) Ferritin (03/31/2024 9:23 AM EST) Ferritin 6,203(H) 8 - 252 ng/mL LAB CHEMISTRY METHOD 03/31/2024 12:10 PM EST [facility] Blood Venous blood specimen / Unknown Venipuncture / Unknown 03/31/2024 9:23 AM EST 03/31/2024 11:25 AM EST Catalina Burr MD LAB BLOOD ORDERABLES Final Resul t Performing Organization Address [facility]/ZIP Co de Phone Number [facility] [address] [place] [address], [place] [phone] documented in this encounter Visit Diagnoses Diagnosis Chronic embolism and thrombosis of unspecified vein Acute kidney failure, unspecified (CMS/HCC) Acute kidney failure, unspecified documented in this encounter Care Teams Echocardiography Technologist Relationship Specialty Start Date End Date Marita Wetzel DO [address] [place] [address] PCP - General 01/09/23 documented as of this encounter
--- OUTSIDE RECORDS SUMMARY | 2024-06-23 22:22 | XMS_ITS | Encounter Summary ---
Author Organization [facility] Address [address] [place] [address] Phone Care Team Providers Care Barrel Centerer Name Role Phone Marita Wetzel DO Primary Care Provider Unava ilable Encounter Details Date Type Department Care Team (Late st Contact Info) Description 06/23/2023 Documentation Only [facility] [address] [place] [phone] [place] [address] [place] [phone] Social History Tobacco Use Types Packs/Day Years [...] Only [facility] [address] [place] [phone] documented as of this encounter Visit Diagnoses Not on filedocumented in this encounter Care Teams Barrel Centerer Relationship Specialty Start Date End Date Marita Wetzel DO [address] [place] [address] PCP - General Family Medicine 11/14/22 documented as of this encounter
--- OUTSIDE RECORDS SUMMARY | 2024-06-23 22:22 | XMS_ITS | Encounter Summary ---
Author Organization [facility] Address [address] [place] [address] Care Team Providers Care Director Of Valuation Name Role Phone Marita eWtzel DO Primary Care Provider +1- [phone] Encounter Details Date Type Department Care Team (Late st Contact Info) Description 03/15/2024 Lab Requisition [facility] - Main Lab [address] [facility] [place] [phone] Catalina Burr MD [address] [place] [address] Acute kidney failure, unspecified (CMS/HCC); Chronic embolism [...] vein documented in this encounter Care Teams Director Of Valuation Relationship Specialty Start Date End Date Marita Wetzel DO [address] [place], [place] PCP - General 01/09/23 documented as of this encounter
--- OUTSIDE RECORDS SUMMARY | 2024-06-23 22:22 | XMS_ITS | Clinical Summary ---
Author Organization [employer] Address [address] [place] [address] 7 [place] [address] Care Team Providers Care Map Drafter Name Role Phone DevendraMarita perez Primary Care Provider + [phone] Allergies Active Allergy Reactions Criticality Noted Date Comments Codeine Hives High 11/12/2011 Other reaction(s): FAINTING/HIVES Oxycodone 07/30/2022 Oxycodone-Acetaminophen Hives High 10/05/2012 Other reaction(s): Nausea / Vomiting Medications * This document contains information received from the source organization and may not represent a complete record from that organization. Continuous Blood Gluc [place] (VendAsta Seema 2 [place]) device 05/07/19 23 Active dorzolamide-ti molol (Cosopt) 22.3-6.8 MG/ML ophthalmic solution Administer 1 drop into both eyes 2 times daily. 07/11/19 23 Active sodium bicarbonate 650 MG tablet Take 2 tablets by mouth 3 times daily. 07/20/19 23 Active ondansetron (Zofran) 4 MG tablet TAKE 1 TABLET BY MOUTH EVERY 8 HOURS IF NEEDED FOR NAUSEA OR VOMITING. 08/03/19 23 Active thiamine (Vitamin B-1) 100 MG tablet Take 1 tablet by mouth in the morning. Active amLODIPine (Norvasc) 10 MG tablet Take 1 tablet by mouth 1 (one) time each day. 04/10/20 23 Active carvedilol (Coreg) 25 MG tablet TAKE 1 TABLET BY MOUTH EVERY DAY IN THE MORNING AND IN THE EVENING WITH MEALS 04/10/20 23 Active folic acid (Folvite) 1 MG tablet Take 1 tablet by mouth 1 (one) time each day. 04/10/20 23 Active cyanocobalamin (Vitamin B-12) 1000 MCG tablet Take 1 tablet by mouth in the morning. Active Continuous Blood Gluc Sensor (FreeStyle Seema 2 Sensor) [facility] Use as directed Active mycophenolate (Myfortic) 360 MG EC tablet Take 720 mg by mouth 2 times daily. 05/17/19 24 Active pantoprazole (ProtoNix) 40 MG EC tablet TAKE 1 TABLET (40 MG) BY MOUTH DAILY BEFORE BREAKFAST DO NOT CRUSH, CHEW, OR SPLIT 06/27/19 24 Active tacrolimus ER (Envarsus XR) 1 MG tablet ER Take 6 mg by mouth Once per day. Dose as per renal/transpl ant team in accordance with labs. 08/01/19 24 Active isosorbide mononitrate ER (Imdur) 30 MG 24 hr tablet Take 30 mg by mouth in the morning. 10/26/19 24 Active potassium chloride CR (Klor-Con M20) 20 MEQ ER tablet Take 2 pills 3x a day x 3 days then take 2 pills daily 11/19/19 24 Active predniSONE (Deltasone) 2.5 MG tablet Take 3 tablets by mouth Once per day. 09/27/19 24 Active sucralfate (Carafate) 1 g tablet Take 1 g by mouth 4 times daily. 10/10/19 24 Active Procrit 98174 UNIT/ML injection 12/09/19 24 Active insulin glargine (Lantus SoloStar) 100 UNIT/ML penIndications :Type 2 diabetes mellitus with stage 3b chronic kidney disease, with long-term current use of insulin (CMS/HCC) Inject 28 Units under the skin in the morning. 01/22/20 24 Active insulin lispro (HumaLOG KWIKPEN) 100 UNIT/ML injectionIndic ations:Type 2 diabetes mellitus with stage 3b chronic kidney disease, with long-term current use of insulin (CMS/HCC) Inject subQ 3 times daily with meals per sliding scale: blood sugar <150 = 0 units, 151-200= 6 units, 201-250=8 units, 251-300=10 units, 301-350=12 units, >351=14 units & call office 01/22/20 24 Active sertraline (Zoloft) 25 MG tablet TAKE 1 TABLET BY MOUTH EVERY DAY IN THE MORNING 30 tablet 3 06/17/19 25 Active hydrOXYzine pamoate (Vistaril) 25 MG capsule TAKE 1 CAPSULE BY MOUTH EVERY 6 HOURS NEEDED FOR ANXIETY 30 capsule 1 06/17/19 25 Active hydrOXYzine pamoate (Vistaril) 25 MG capsule Take 1 capsule (25 mg) by mouth every 6 (six) hours if needed for anxiety. 30 capsule 1 07/23/19 24 025 Discontinued(Re order (will not trigger notification to Pharmacy)) sertraline (Zoloft) 25 MG tablet TAKE 1 TABLET BY MOUTH EVERY DAY IN THE MORNING 30 tablet 3 12/01/19 24 025 Discontinued(Re order (will not trigger notification to Pharmacy)) Active Problems Problem Noted Date Diagnosed Date Chronic gastroesophageal reflux disease 07/23/19 Immunosuppression due to drug therapy 05/26/2023 Assessment [...] Encounters Date Type Department Care Team Description 06/22/[address] [address] Marita Wetzel DO Medication Question 06/17/2024 Refill [facility] [address] [place] [address] Marita Wetzel DO 06/11/2024 Patient Outreach [address] [address] Marita Wetzel DO Transition Of Care (Tcm) (HDF unscheduled) 06/11/[address] [address] Marita Wetzel DO Hospital Follow-up 05/27/2024 Orders Only GENERIC EXTERNAL DATA DEPARTMENT Provider, Generic External Data 05/07/2024 Telephone [facility] [address] [place] [address] Renetta Romo [place] Recall Letter (Recall Letter sent 05/07/24) 04/07/2024 Orders Only [facility] External Provider, [facility] from Last 3 Months Immunizations Name [...] 12/09/2023 9:39 AM EDT Plan of Treatment Upcoming Encounters Date Type Department Care Team (Late st Contact Info) Description 08/20/2024 10:00 AM EDT Office Visit [facility] [address] [place] [address] Marita Wetzel DO [address] [place] [address] Health Maintenance Due Date Last Done Comments [...] PCV20 or PCV21) 05/03/2026 05/03/2021, 01/05/2020, 08/13/2010 DTaP/Tdap/Td Vaccines (4 - Td or Tdap) 01/19/2032 01/18/2022, 01/18/2022, 01/23/2011 Hepatitis B Vaccines Completed 10/02/2021, 10/01/2021, 10/01/2021, Additional history exists Influenza Vaccine Completed 02/12/2024, , 02/26/2023, Additional history exists HIB Vaccines Aged Out [...] sugar as directed Result Component No Carmen Becker PharmD Note: Use CGM, ensuring sensor is scanned at least once every 8 hours to capture 24H data. Check BG manually, as directed. Procedures Procedure Name Priority Date/Time Associated Diagnosis Comments XR CHEST 1 VIEW Routine 06/04/2024 5:[address] CHEST W CONTRAST Routine 05/31/2024 7 :00 AM EST MR BRAIN W AND WO CONTRAST Routine 05/30/2024 2:27 PM EST VASC US CAROTID ARTERY DUPLEX BILATERAL Routine 05/30/2024 1:[address] HEAD STROKE WO CONTRAST Routine 05/30/2024 11:28 AM EST BASIC METABOLIC PANEL Routine 05/27/2024 11:34 PM EST LACTIC ACID Routine 05/27/2024 9:[address] HEAD WO CONTRAST Routine 05/27/2024 9 :42 PM EST XR CHEST 1 VIEW Routine 05/27/2024 7:51 PM EST XR CHEST 1 VIEW Routine 04/12/2024 10:40 AM EST XR CHEST 1 VIEW Routine 04/09/2024 6:00 AM EST US DRAIN THORACENTESIS Routine 11:30 AM EST POCT GLYCATED HEMOGLOBIN, TOTAL Routine 12/09/2023 9:43 AM EDT Type 2 diabetes mellitus with stage 3b chronic kidney disease, without long-term current use of insulin ([facility]) LIPID PANEL, STANDARD Routine 10/06/2023 BI MAMMOGRAM SCREENING TOMOSYNTHESIS BILATERAL Routine 07/17/2023 10:45 AM EDT HM PAP/HPV Routine 08/12/2018 from Last 3 Months or Most Recently Relevant to Health Maintenance Results * XR Chest 1 View (06/04/2024 5:19 AM EST) Only the most recent of4 resultswithin the time period is included. Anatomical Region Laterality Modality Chest Radiographic Lily ging 06/04/2024 5:19 AM EST Narrative 06/04/2024 5:20 AM EST ? [facility] ?[address] ?[place] [address] ?XRay Report ? Signed ? Patient: Alix Sharp ?MR#: [id number] ?? 43 ? : 1960 ?Acct:[id number] ? Age/Sex: 64 / F ?ADM Date: 05/28/24 ? Loc: HO.[facility]C ?477-1 ? Attending Dr: Malik Orozco MD ? Ordering Physician: Nirav Osborn MD ?? Date of Service: 06/03/24 ?? Procedure(s): XR chest 1V ?? Accession Number(s): [id number] ? cc: Marita Wetzel DO; Nirav Osborn [...] DD/ 0519 ? TD/TT: 06/04/24 0519 ? Backup Sawyer: ? Procedure Note Delvis Grant - 06/04/2024 [place] [address] [place] [address] XRay Report Signed Patient: Alix Sharp BMR#: [id number] [birth year] : 1Acct:[id number] Age/Sex: 64 / FADM Date: 05/28/24 Loc: [facility] 477-[address]: Malik Orozco MD Ordering Physician: Nirav Osborn MD Date of Service: 06/03/24 Procedure(s): XR chest 1V Accession Number(s): [id number] cc: Marita Wetzel DO; Nirav Osborn MD [...] signed by Yoni Hobbs MD in OV> 06/04/24 0520 DD/ TD/TT: 06/04/24 05 Backup Sawyer: [facility] External Provider IMG XR PROCEDURES Final Result * CT Chest w/ Contrast (05/31/2024 7:00 AM EST) Anatomical Region Laterality Modality Body, Chest Computed Tomogra phy 05/31/2024 7:00 AM EST Narrative 05/31/2024 9:38 AM EST ? [facility] ?[address] ?[place] [address] ? CT Scan Report ? Signed ? Patient: West,Alix B ?MR#: [id number] ?? 43 ? : 1960 ?Acct:[id number] ? Age/Sex: 64 / F ?ADM Date: 02//25 ? Loc: HO.[facility]C ?477-1 ? Attending Dr: Ab Barba MD ? Ordering Physician: Malik Orozco MD ?? Date of Service: 05/31/24 ?? Procedure(s): CT chest w IV con ?? Accession Number(s): [id number] ? cc: Malik Orozco MD; Marita Wetzel DO ? Report Number: ?? [id number]: Total DLP = ??187.00 mGy-cm ?? EXAMINATION: [...] DD/ 0700 ? TD/TT: 05/31/24 0905 ? Backup Sawyer: ? Procedure Note Delvis Grant - 05/31/[address] [place] [address] [address] Scan Report Signed Patient: Alix Sharp BMR#: [id number] 43 : 1960cct:[id number] Age/Sex: 64 / FADM Date: 05/28/24 Loc: .[facility] 477-[address]: Ab Barba MD Ordering Physician: Malik Orozco MD Date of Service: 05/31/24 Procedure(s): CT chest w IV con Accession Number(s): [id number] cc: Malik Orozco MD; Marita Wetzel DO Report Number: [id number]: Total DLP = 187.00 mGy-cm EXAMINATION: CT [...] in OV> 05/31/2435 DD/ 07 TD/TT: 05/31/24 09 Backup Sawyer: [facility] External Provider IMG CT PROCEDURES Edited Result - Final * Mr Brain w/ and w/o Contrast (05/30/2024 2:27 PM EST) Anatomical Region Laterality Modality Brain Magnetic Resonan ce 05/30/2024 2:27 PM EST Narrative 05/30/2024 2:30 PM EST ? [facility] ?[address] ?[place] [address] ? Magnetic Resonance Report ? Signed with Addenda ? Patient: West,Alix B ?MR#: [id number] ?? 43 ? : 1960 ?Acct:[id number] ? Age/Sex: 64 / F ?ADM Date: 05/28/24 ? Loc: HO.[facility] ?477-1 ? Attending Dr: Malik Orozco MD ? Ordering Physician: Malik Orozco MD ?? Date of Service: 05/30/24 ?? Procedure(s): MR head/brain wo/w con ?? Accession Number(s): [id number] ? cc: Malik Orozco MD; Marita Wetzel [...] ? DD/ 26 ? TD/TT: 05/30/241426 ? Backup Sawyer: ? Procedure Note Donotclifinterpreter, Image - 05/30/2024 [place] [address] Magnetic Resonance Report Signed with Addenda Patient: Alix Sharp BMR#: [id number] 43 : 1960cct:[id number] Age/Sex: 64 / FADM Date: 05/28/24 Loc: [facility] 477-[address]: Malik Orozco MD Ordering Physician: Malik Orozco MD Date of Service: 05/30/24 Procedure(s): MR head/brain wo/w con Accession Number(s): [id number] cc: Malik Orozco MD; Marita Wetzel DO [...] OV> 05/30/24 1429 DD/ 26 TD/TT: 05/30/241426 Backup Sawyer: [facility] External Provider IMG MRI PROCEDURES Edited Result - Final * VASC Carotid Artery Duplex Bilateral (05/30/2024 1:41 PM EST) 05/30/2024 1:41 PM EST Narrative [facility] - 05/31/2024 8:14 AM EST ? [facility] ?[address] ?[place] [address] ? Ultrasound Report ? Signed ? Patient: Alix Sharp B ?MR#: [id number] ?? 43 ? : 1960 ?Acct:[id number] ? Age/Sex: 64 / F ?ADM Date: 05/28/24 ? Loc: HO.IMC ?477-1 ? Attending Dr: Ab Barba MD ? Ordering Physician: Malik Orozco MD ?? Date of Service: 05/30/24 ?? Procedure(s): US carotid duplex BI ?? Accession Number(s): [id number] ? cc: Malik Orozco MD; Marita Wetzel [...] DD/ 1341 ? TD/TT: 05/30/24 1352 ? Backup Sawyer: ? Procedure Note Delvis Grant - 05/31/[address] [address] Ultrasound Report Signed Patient: Farhan Sharpa BMR#: [id number] [birth year] : 1Acct:[id number] Age/Sex: 64 / FADM Date: 05/28/24 Loc: [facility] 477-[address]: Ab Barba MD Ordering Physician: Malik Orozco MD Date of Service: 05/30/24 Procedure(s): US carotid duplex BI Accession Number(s): [id number] cc: Malik Orozco MD; Marita Wetzel DO [...] by: Db Berry MD 05/31/2024 08:12 AM [facility] Dictated By: Db Berry MD Signed By: <Electronically signed by Db Berry MD in OV> 05/31/24 0812 DD/ 1341 TD/TT: 05/30/24 1352 Backup Sawyer: [facility] External Provider CV VASC ULAR PROCEDURES Edited Result - Final [facility] [address] [place] [address] * CT Head Stroke w/o Contrast (05/30/2024 11:28 AM EST) Anatomical Region Laterality Modality Computed Tomogra phy 05/30/2024 11:2 8 AM EST Narrative 05/30/2024 11:30 AM EST ? [facility] ?[address] ?[place] [address] ? CT Scan Report ? Signed with Addenda ? Patient: West,Alix B ?MR#: [id number] ?? 43 ? : 1960 ?Acct:[id number] ? Age/Sex: 64 / F ?ADM Date: 05/28/24 ? Loc: HO.[facility]C ?477-1 ? Attending Dr: Malik Orozco MD ? Ordering Physician: Malik Orozco MD ?? Date of Service: 05/30/24 ?? Procedure(s): CT head for STROKE ?? Accession Number(s): [id number] ? cc: Malik Orozco MD; Marita Wetzel DO ? Report Number: ?? [id number]: Total DLP = ??749.00 mGy-cm ?ADDENDUM ?? [...] - CT HEAD/BRAIN WO IV CON - 2 20:50 EST ?? CT/REG/SR - CT HEAD/BRAIN WO CON - 11/29/21 09:45 EDT ?? CT/SR - BRAIN WO IV CONTRAST 00399 - 09/16/18 13:47 EDT ? Findings: ?? [...] DD/ 1128 ? TD/TT: 05/30/24 1128 ? Backup Sawyer: ? Procedure Note Delvis Grant - 05/30/[address] [place] [address] [address] Scan Report Signed with Daniel Patient: Alix Sharp BMR#: [id number] 43 : 1960cct:[id number] Age/Sex: 64 / FADM Date: 05/28/24 Loc: [facility] 477-[address]: Malik Orozco MD Ordering Physician: Malik Orozco MD Date of Service: 05/30/24 Procedure(s): CT head for STROKE Accession Number(s): [id number] cc: Malik Orozco MD; Marita Wetzel DO Report Number: [id number]: Total DLP = 749.00 mGy-cm ADDENDUM This document has been electronically signed by: Yoni Beaver MD on 05/30/2024 11:28:55 ADDENDUM: This report was discussed with Pam Malik on May 30, 2024 11:37:00 EST. This document has been electronically signed by: Mitra Flores on 05/30/2024 11:37:15 Addendum Dictated By: Yoni Beaver MD Addendum Signed By: <Electronically signed by Yoni Beaver MD in OV> 05/30/24 1138 Addendum Cosigned By: DD/ /14/1128 TD/TT: 05/30/2401/13/1137 CLINICAL HISTORY: LUE weakness CT head without contrast. Comparison: CT/SR - CT HEAD/BRAIN WO IV CON - 05/27/24 20:[address]/REG/SR - CT HEAD/BRAIN WO CON - 11/29/21 09:[address]/SR - BRAIN WO IV CONTRAST [id number] - 09/16/18 13:47 EDT Findings: Findings concerning [...] OV> 05/30/24 1130 DD/ 27 TD/TT: 05/30/241127 Backup Sawyer: [facility] External Provider IMG CT PROCEDURES Edited Result - Final * (ABNORMAL) Basic Metabolic Panel (05/27/2024 11:34 PM EST) Sodium 135 135 - 145 mmol/L [facility] Potassium 6.1(HH) 3.3 - 5.1 mmol/L [facility] Comment:Critical value for t est(s): POTS Results called to and readback by: ELICEO Person calling: TIMI Date:05/27/24 Time:2359 Chloride 104 96 - 108 mmol/L [facility] Carbon Dioxide 23 22 - 29 mmol/L [facility] Anion Gap 14 12 - 20 [facility] Urea Nitrogen (BUN) 50(H) 9 - 16 mg/dL [facility] Creatinine, Serum 3.04(H) 0.5 - 1.4 mg/dL [facility] Creatinine Clr Calc Pharmacy 14.1 [facility] Comment:Provided height and weight: 167.64 cm,48 kg.eGFR (calculated from the MDRD study equation) and eCrCl(calculated from the Cockcroft-Gault equation) are based ondifferent parameters and may not yield comparable results.If eCrCl result is absurd, please check patient'sheight/weight. Estimated Glomerular Filt Rate 15 [facility] Comment:Chronic Kidney Disea se: Estimated GFR < 60 mL/min/1.17i6Ojgdii Kidney Disease: Estimated GFR < 15 mL/min/1.73m2 Glucose 76 60 - 115 mg/dL [facility] Calcium 9.4 8.4 - 10.2 mg/dL [facility] 05/27/2024 11:3 4 PM EST 05/27/2024 11:37 PM EST us Generic External Data Provider LAB BLOOD ORDERAB LES Final Result [facility] [address] [place] [address] [phone] * Lactic Acid (05/27/2024 9:44 PM EST) Lactic Acid 0.5 0.5 - 2.0 mmol/L [facility] 05/27/2024 9:44 PM EST 05/27/2024 9:54 PM EST us Generic External Data Provider LAB BLOOD ORDERAB LES Final Result [facility] [address] [place] [address] [phone] * CT Head w/o Contrast (05/27/2024 9:42 PM EST) Anatomical Region Laterality Modality Head, Neck Computed Tomogra phy 05/27/2024 9:42 PM EST Narrative 05/27/2024 9:44 PM EST ? [facility] ?[address] ?[place] [address] ? CT Scan Report ? Signed ? Patient: West,Alix B ?MR#: [id number] ?? 43 ? : 1960 ?Acct:[id number] ? Age/Sex: 64 / F ?ADM Date: 05/27/24 ? Loc: HO.ED ? Attending Dr: ? Ordering Physician: Jerod Simons ?? Date of Service: 05/27/24 ?? Procedure(s): CT head/brain wo IV con ?? Accession Number(s): [id number] ? cc: Marita Wetzel DO; Jerod Simons ? Report Number: ?? [id number]: Total DLP = 1132.00 mGy-cm ? CLINICAL HISTORY: left sided weakness ? CT head without contrast ? Comparison: CT/REG/SR - CT HEAD/BRAIN WO CON - 11/29/21 09:45 EDT ? Findings: ?? No intra-axial [...] ? DD/ 41 ? TD/TT: 05/27/242141 ? Backup Sawyer: ? Procedure Note Srinivasamarielter, Image - 05/27/[address] [address] [address] Scan Report Signed Patient: Alix Sharp BMR#: [id number] 43 : 1960cct:[id number] Age/Sex: 64 / FADM Date: 05/27/24 Loc: HO.ED Attending Dr: Ordering Physician: Jerod Simons Date of Service: 05/27/24 Procedure(s): CT head/brain wo IV con Accession Number(s): [id number] cc: Marita Wetzel DO; Jerod Simons Report Number: [id number]: Total DLP = 1132.00 mGy-cm CLINICAL HISTORY: [...] in OV> 05/27/242142 DD/ 41 TD/TT: 05/27/242141 Backup Sawyer: us [facility] External Provider IMG CT PROCEDURES Final Result * US DRAIN THORACENTESIS (04/08/2024 11:30 AM EST) Anatomical Region Laterality Modality Abdomen Ultrasound 04/08/2024 11:3 0 AM EST Narrative 04/12/2024 5:27 PM EST ? [facility] ?[address] ?[place], [place] [address] ? Ultrasound Report ? Signed ? Patient: West,Alix B ?MR#: [id number] ?? 43 ? : 1960 ?Acct:[id number] ? Age/Sex: 63 / F ?ADM Date: 04/07/24 ? Loc: HO.S3 ?385-1 ? Attending Dr: Ernie Brewer MD ? Ordering Physician: Jerod Lopez ?? Date of Service: 04/08/24 ?? Procedure(s): US drain thoracentesis ?? Accession Number(s): [id number] ? cc: Marita Wetzel DO; Jerod Lopez ? PROCEDURE: ?? Ultrasound-guided chest tube placement ? HISTORY: ?? Right loculated pleural effusion ? SPECIMEN: ?? A specimen was appropriately labeled and sent to the laboratory as ?? requested ? ACCESS: ?? 5 fr Kizziangeh needle/catheter ? MEDICATIONS: ?? 10 mL 1% [...] demonstrate a safe access route. A 5 [place]amese Yueh catheter was ?? then used to [...] DD/ 1130 ? TD/TT: 04/08/24 1220 ? Backup Sawyer: ? Procedure Note Juanita, Image - 04/12/2024 [place] [address] Ultrasound Report Signed Patient: Alix Sharp BMR#: [id number] 43 : 1960cct:[id number] Age/Sex: 63 / FADM Date: 04/07/24 Loc: .S3 385-[address]: Ernie Brewer MD Ordering Physician: Jerod Lopez Date of Service: 04/08/24 Procedure(s): US drain thoracentesis Accession Number(s): [id number] cc: Marita Wetzel DO; Jerod Lopez PROCEDURE: [...] demonstrate a safe access route. A 5 [place]e Kizziangeh catheter was then used to access the [...] by: Nelson Green MD 04/12/2024 05:24 PM [facility] Dictated By: Jerod Lopez Signed By: <Electronically signed by Jerod Lopez in OV> 04/12/24 1724 <Electronically signed by Nelson Green MD in OV> 04/12/24 1726 DD/ 1130 TD/TT: 04/08/24 1220 Backup Sawyer: [facility] External Provider IMG US PROCEDURES Final Result * POCT HGB A1C (12/09/2023 9:43 AM EDT) Hemoglobin A1C 5.9 4.0 - 6.0 % QC Media Lot # [id number] Lot# Expiration Date [id number] Blood 12/09/2023 9:43 AM EDT Marita Jurcsak DO POINT OF CARE TEST ENTER/HUMBERTO T ORDERABLES Final Result * (ABNORMAL) Lipid Panel, Standard (10/06/2023) Triglycerides 157 40 - 160 mg/dL Cholesterol [...] EDT Narrative 08/03/2023 8:29 PM EDT ? [facility] ? [address] ?[place] [address] ? Mammography Report ? Signed ? Patient: Alix Dennis ?MR#: ?? [id number] ? : 1960 ?Acct:[id number] ? Age/Sex: 63 / F ?ADM Date: 07/17/23 ? Loc: HO.MAMMO ? Attending Dr: Marita Wetzel DO ? Ordering Physician: Damari,Marita A DO ?Results: 2B ?? enign Findings ? Date of Service: 07/17/23 ?Follow Up: 1 Year From Orig ?? inal Mammogram ? Procedure(s): MM tomosynthesis screening BI ?? Accession Number(s): [id number] ? cc: Marita Wetzel DO ? EXAMINATION: ?? MM SCREENING DIGITAL [...] 08/03/232024 ? DD/ 44 ? TD/TT: ? Backup Sawyer: ? Procedure Note Delvis Grant - 08/03/2023 [facility] [address] [place] [address] Dr. [place], [place] [address] Mammography Report Signed Patient: Alix Dennis FMR#: [id number] : 1Acct:[id number] Age/Sex: 63 / FADM Date: 07/17/23 Loc: HO.MAMMO Attending Dr: Marita Wetzel DO Ordering Physician: Marita Wetzelults: 2B enign Findings Date of Service: 07/17/23Follow Up: 1 Year From Orig ina Mammogram Procedure(s): MM tomosynthesis screening BI Accession Number(s): [id number] cc: Marita Wetzel DO EXAMINATION: MM SCREENING [...] MD in OV> 08/03/232024 DD/ 1045 TD/TT: Backup Sawyer: Marita Wetzel DO IMG BI PROCEDURES Edited Res ult - Final * Hm Pap Smear (08/12/2018) Pap Negative for intraephithelial lesion or malignancy Negative for intraephithelial lesion or malignancy, Other HPV Undetected Undetected, Indeterminate, Quantitative, Not Detected Historical Provider HEALTH MAINTENANCE Final Result from Last 3 Months or Most Recently Relevant to Health Maintenance Insurance MEDICARE [facility] modu Care Teams Map Drafter Relationship Specialty Start Date End Date Marita Wetzel DO [address] [place] [id number] PCP - General Family Medicine 04/21/18 [facility] 05/22/24
--- OUTSIDE RECORDS SUMMARY | 2024-06-23 22:22 | XMS_ITS | Clinical Summary ---
Author Organization [address] Address [address] [place] [address] Phone Care Team Providers Care Can Marker Name Role Phone Marita Wetzel Primary Care Provider +1- [phone] Encounters Date Type Department Care Team Description 05/31/2024 Lab Requisition [facility] [address] [place] [phone] Marily Gordillo MD Acute kidney failure, unspecified (CMS/HCC); Chronic embolism and thrombosis of unspecified vein; Anemia, unspecified 05/30/2024 Lab Requisition [facility] [address] [place] [phone] Marily Gordillo MD Chronic embolism and thrombosis of unspecified vein; Acute kidney failure, unspecified (CMS/HCC) 05/21/2024 Lab Requisition [facility] [address] [place] [phone] Marily Gordillo MD Chronic embolism and thrombosis of unspecified vein; Acute kidney failure, unspecified (CMS/HCC) 05/15/2024 Lab Requisition [facility] [address] [place] [phone] Marily Gordillo MD Chronic embolism and thrombosis of unspecified vein; Acute kidney failure, unspecified (CMS/HCC) 05/12/2024 Lab Requisition [facility] [address] [place] [phone] Marily Gordillo MD Chronic kidney disease, unspecified; Anemia, unspecified 05/07/2024 Lab Requisition [facility] [address] [place] [address] Marily Godrillo MD Chronic embolism and thrombosis of unspecified vein; Acute kidney failure, unspecified (CMS/HCC) 2024 Lab Requisition [facility] [address] [place] [address] Marily Gordillo MD Chronic kidney disease, unspecified; Anemia, unspecified 04/30/2024 Lab Requisition [facility] [address] [place] [address] Marily Gordillo MD Chronic embolism and thrombosis of unspecified vein; Acute kidney failure, unspecified (CMS/HCC) 04/30/2024 Lab Requisition [facility] [address] [place] [address] Marily Gordillo MD Anemia, unspecified; Chronic embolism and thrombosis of unspecified vein; Acute kidney failure, unspecified (CMS/HCC) 04/29/2024 Lab Requisition [facility] [address] [place] [address] Marily Gordillo MD Chronic embolism and thrombosis of unspecified vein; Acute kidney failure, unspecified (CMS/HCC) 04/28/2024 Lab Requisition [facility] [address] [place] [address] Marily Gordillo MD Chronic kidney disease, unspecified; Anemia, unspecified 04/28/2024 Lab Requisition [facility] [address] [place] [address] Marily Gordillo MD Chronic kidney disease, unspecified; Anemia, unspecified 04/23/2024 Lab Requisition [facility] [address] [place] [address] Marily Gordillo MD Chronic embolism and thrombosis of unspecified vein; Acute kidney failure, unspecified (CMS/HCC) 04/20/2024 Lab Requisition [facility] [address] [place] [phone] Marily Gordillo MD Chronic kidney disease, unspecified; Anemia, unspecified 04/17/2024 Lab Requisition [facility] [address] [place] [phone] Marily Gordillo MD Chronic embolism and thrombosis of unspecified vein; Acute kidney failure, unspecified (CMS/HCC) 04/17/2024 Lab Requisition [facility] [address] [place] [phone] Catalina Burr MD End stage renal disease (CMS/HCC); Anemia, unspecified 04/10/2024 Lab Requisition [facility] [address] [place] [phone] Marily Gordillo MD Chronic embolism and thrombosis of unspecified vein; Acute kidney failure, unspecified (CMS/HCC) 04/02/2024 Lab Requisition [facility] [address] [place] [phone] Marily Gordillo MD Chronic embolism and thrombosis of unspecified vein; Acute kidney failure, unspecified (CMS/HCC) 03/30/2024 Lab Requisition [facility] [address] [place] [phone] Catalina Burr MD Chronic embolism and thrombosis of unspecified vein; Acute kidney failure, unspecified (CMS/HCC) 03/29/2024 Lab Requisition [facility] [address] [place] [phone] Catalina Burr MD End stage renal disease (CMS/HCC) from Last 3 Months Immunizations Name [...] Zoster Vaccines (1 of 2) 11/14/2021 09/19/2021, 02/10/2021 Colorectal Cancer Screening: Colonoscopy 05/16/2023 HIV Screening 05/16/2023 Medicare Annual Wellness Visit 05/16/2023 Social Influencers of Health Screening 05/16/2023 Depression Screening 10/09/2023 10/08/2022 COVID-19 Vaccine ( season) 2023 02/01/2022, 06/22/2020, 05/25/2020 Diabetes: Annual Urine Albumin-Creatinine Ratio (uACR) 03/01/2024 Diabetes: Blood Sugar Control Test (HGBA1C) 10/18/2024 04/20/2024, 04/20/2024, 02/03/2024, Additional history exists Diabetes: Annual GFR (Glomerular Filtration Rate) 05/27/2025 05/27/2024, 05/10/2024, 05/03/2024, Additional history exists Hypertension/CHF/CAD Annual BMP Blood Test 05/27/2025 05/27/2024, 05/10/2024, 05/03/2024, Additional history exists Pneumococcal Vaccine: 50+ Years (4 of 4 - PCV20 or PCV21) 05/03/2026 05/03/2021, 01/05/2020, 08/13/2010 Pneumococcal Vaccine: Pediatrics (0 to 5 Years) and At-Risk Patients (6 to 64 Years) (4 of 4 - PCV20 or PCV21) 05/03/2026 05/03/2021, 01/05/2020, 08/13/2010 Cholesterol Screening (Lipid [...] patient's age to complete this topic Meningococcal B Vacine Aged Out No lo nger eligible based on patient's age to complete [...] AM EST End stage renal disease (CMS/HCC) from Last 3 Months Results * Tacrolimus level (05/10/2024 5:50 AM EST) Only the most recent of6 resultswithin the time period is included. Tacrolimus [...] developed and the performance characteristics determined by [facility]. This confirmation testing has not been cleared or approved by the FDA. The laboratory is regulated under CLIA as qualified to perform high-complexity testing. This test is used for patient testing purposes. It should not be regarded as investigational or for research. Test performed at [facility], [address], [place], [place] ??[address] ? [phone] Ashtyn Leigh MD, PhD - Ballistics Teacher Blood Venous blood specimen / Unknown Venipuncture / Unknown 05/10/2024 5:50 AM EST 05/10/2024 9:58 AM EST us Marily Gordillo MD LAB BLOOD ORDERABLES Final Resul t [facility] [address] [place] [address] * (ABNORMAL) Renal function panel (05/10/2024 5:50 AM EST) Only the most recent of6 resultswithin the time period is included. Sodium 135 133 - 145 mmol/L LAB CHEMISTRY METHOD 05/10/2024 11:45 AM EST [facility] Potassium 3.8 3.5 - 5.5 mmol/L LAB CHEMISTRY METHOD 05/10/2024 11:45 AM [facility] Chloride 96 96 - 110 mmol/L LAB CHEMISTRY METHOD 05/10/2024 11:45 AM [facility] CO2 28 21 - 32 mmol/L LAB CHEMISTRY METHOD 05/10/2024 11:45 AM [facility] Anion Gap 11 3 - 11 LAB CHEMISTRY METHOD 05/10/2024 11:45 AM [facility] Glucose 215(H) 70 - 100 mg/dL LAB CHEMISTRY METHOD 05/10/2024 11:45 AM [facility] BUN 45(H) 5 - 25 mg/dL LAB CHEMISTRY METHOD 05/10/2024 11:45 AM [facility] Creatinine 3.47(H) 0.50 - 1.10 mg/dL LAB CHEMISTRY METHOD 05/10/2024 11:45 AM [facility] eGFR 14(L) >=60 mL/min/1. 73m2 LAB CHEMISTRY METHOD 05/10/2024 11:45 AM [facility] Comment:Calculation based on the??Chronic Kidney Disease Epidemiology Collaboration (CKD-EPI) equation refit??without adjustment for race. BUN/Creatinine Ratio 13.0 LAB CHEMISTRY METHOD 05/10/2024 11:45 AM [facility] Albumin 1.7(L) 3.2 - 5.0 g/dL LAB CHEMISTRY METHOD 05/10/2024 11:45 AM [facility] Calcium 8.4(L) 8.5 - 10.5 mg/dL LAB CHEMISTRY METHOD 05/10/2024 11:45 AM [facility] Phosphorus 2.1(L) 2.5 - 4.5 mg/dL LAB CHEMISTRY METHOD 05/10/2024 11:45 AM [facility] Blood Venous blood specimen / Unknown Venipuncture / Unknown 05/10/2024 5:50 AM EST 05/10/2024 9:58 AM EST us Marily Gordillo MD LAB BLOOD ORDERABLES Final Resul t Performing Organization Address City/[facility]/ZIP Co de Phone Number [facility] [address] [place] [address], [place] [phone] * (ABNORMAL) Iron (05/03/2024 6:09 AM EST) Only the most recent of2 resultswithin the time period is included. Iron 35(L) 40 - 150 mcg/dL LAB CHEMISTRY METHOD 05/03/2024 10:59 AM EST [facility] Blood Venous blood specimen / Unknown Venipuncture / Unknown 05/03/2024 6:09 AM EST 05/03/2024 9:29 AM EST us Marily Gordillo MD LAB BLOOD ORDERABLES Final Resul t Performing Organization Address [facility] de Phone Number [facility] [address] [place] [address], [place] [phone] * (ABNORMAL) Ferritin (05/03/2024 6:09 AM EST) Only the most recent of2 resultswithin the time period is included. Ferritin 2,737(H) 8 - 252 ng/mL LAB CHEMISTRY METHOD 05/03/2024 10:59 AM EST [facility] Blood Venous blood specimen / Unknown Venipuncture / Unknown 05/03/2024 6:09 AM EST 05/03/2024 9:29 AM EST us Marily Gordillo MD LAB BLOOD ORDERABLES Final Resul t Performing Organization Address [facility] Co de Phone Number [facility] [address] [place] [address], [place] [phone] * (ABNORMAL) Complete blood count (04/22/2024 7:09 AM EST) Only the most recent of5 resultswithin the time period is included. [facility] WBC 8.2 4.8 - 10.8 K/mcL [...] METHOD 04/22/2024 10:44 AM [facility] RDW 16.5(H) 11.0 - 15.0 [...] MD LAB BLOOD ORDERABLES Final Resul t [facility] [address] [place] [address], * (ABNORMAL) Comprehensive metabolic panel (04/22/2024 7:09 AM EST) Only the most recent of2 resultswithin the time period is included. Sodium 143 133 - 145 mmol/L LAB CHEMISTRY METHOD 04/22/2024 11:50 AM [facility] Potassium 3.5 3.5 - 5.5 mmol/L LAB CHEMISTRY METHOD 04/22/2024 11:50 AM [facility] Chloride 112(H) 96 - 110 [...] 7:09 AM EST 04/22/2024 9:42 AM EST us Marily Gordillo MD LAB BLOOD ORDERABLES Final Resul t [facility] [address] [place] [address], * (ABNORMAL) Reticulocyte count (04/17/2024 5:33 AM EST) Retic Ct Abs 0.050 0.030 - 0.090 M/mcL LAB HEMETOLOGY METHOD 04/17/2024 10:42 AM EST [facility] Retic Ct Pct 1.8(H) 0.7 - 1.7 % LAB HEMETOLOGY METHOD 04/17/2024 10:42 AM [facility] Immature Retic Fract 24.7(H) 2.3 - 15.9 % LAB HEMETOLOGY METHOD 04/17/2024 10:42 AM [facility] Reticulocyte Hemoglobin 28.3(L) >29.0 pcg LAB HEMETOLOGY METHOD 04/17/2024 10:42 AM [facility] Blood Venous blood specimen / Unknown Venipuncture / Unknown 04/17/2024 5:33 AM EST 04/17/2024 9:33 AM EST Catalina Burr MD LAB BLOOD ORDERABLES Final Resul t [facility] [address] [place] [address], from Last 3 Months Insurance MEDICARE Care Teams Can Marker Relationship Specialty Start Date End Date Marita Wetzel DO [address] [place] [address] PCP - General 01/09/23
--- OUTSIDE RECORDS SUMMARY | 2024-06-23 22:22 | XMS_ITS | Encounter Summary ---
Author Organization [facility] Address [address] [place] [address] Phone Care Team Providers Care Manager Tax Name Role Phone Marita Wetzel DO Primary Care Provider Unava ilable Encounter Details Date Type Department Care Team (Late st Contact Info) Description 07/29/2023 Documentation Only [facility] [address] [place] [phone] Pauline Aguayo [address] [place] [phone] Social History Tobacco Use Types Packs/Day Years [...] Only [facility] [address] [place] [phone] documented as of this encounter Visit Diagnoses Not on filedocumented in this encounter Care Teams Manager Tax Relationship Specialty Start Date End Date Marita Wetzel DO [address] [place] [address] PCP - General Family Medicine 11/14/22 documented as of this encounter
--- OUTSIDE RECORDS SUMMARY | 2024-06-23 22:22 | XMS_ITS | Encounter Summary ---
Author Organization [facility] Address [address] [place] [address] Phone Care Team Providers Care Supervisor Decorating Name Role Phone Marita Wetzel DO Primary Care Provider Unava ilable Encounter Details Date Type Department Care Team (Late st Contact Info) Description 11/11/2022 Documentation Only [facility] [address] [place] [place] [phone] Pauline Aguayo [address] [place] [phone] Social History Tobacco Use Types Packs/Day Years [...] [facility] [address] [place] [place] [phone] documented as of this encounter Visit Diagnoses Not on filedocumented in this encounter Care Teams Supervisor Decorating Relationship Specialty Start Date End Date Marita Wetzel DO [address] [place] [address] PCP - General Family Medicine 11/14/22 documented as of this encounter
--- OUTSIDE RECORDS SUMMARY | 2024-06-23 22:22 | XMS_ITS | Encounter Summary ---
Author Organization [facility], Address [address] [place] [address] Phone Care Team Providers Care Glueline Worker Name Role Phone Marita Wetzel DO Primary Care Provider Unava ilable Reason for Visit * Reason Onset Date Comments attempted to schedule port flush 05/25/2024 Encounter Details Date Type Department Care Team (Late Contact Info) Description 05/25/2024 Telephone [facility] [address] [place] [phone] Hazel Zepeda [address] [place] [address] attempted to schedule port flush [...] Only [facility] [address] [place] [address] documented as of this encounter Visit Diagnoses Not on filedocumented in this encounter Care Teams Glueline Worker Relationship Specialty Start Date End Date Marita Wetzel DO [address] [place] [address] PCP - General Family Medicine 11/14/22 documented as of this encounter
--- OUTSIDE RECORDS SUMMARY | 2024-06-23 22:22 | XMS_ITS | Encounter Summary ---
Author Organization [facility] Address [address] [place] [address] Care Team Providers Care Electric Motor Repairing Supervisor Name Role Phone Mary JaneMarita yousif Primary Care Provider +1- [phone] Encounter Details Date Type Department Care Team (Late st Contact Info) Description 03/19/2024 Lab Requisition [facility] - Main Lab [address] [facility] [place] [address] Catalina Burr MD [address] [place] [address] Chronic embolism and thrombosis of unspecified vein; [...] developed and the performance characteristics determined by [facility]. This confirmation testing has not been cleared or approved by the FDA. The laboratory is regulated under CLIA as qualified to perform high-complexity testing. This test is used for patient testing purposes. It should not be regarded as investigational or for research. Test performed at [facility], [address], [place], [place] ??[address] ? [phone] Ashtyn Leigh MD, PhD - Mascara Molder Blood Venous blood specimen / Unknown Venipuncture / Unknown 03/22/2024 6:50 AM EST 03/22/2024 8:05 AM EST us Catalina Burr MD LAB BLOOD ORDERABLES Final Resul t [facility] [address] [place] [address] * (ABNORMAL) Renal function panel (03/22/2024 6:50 [...] 10.4 LAB CHEMISTRY METHOD 03/22/2024 8:55 AM EST [facility] Albumin 2.1(L) 3.2 - 5.0 [...] 6:50 AM EST 03/22/2024 8:05 AM EST us Catalina Burr MD LAB BLOOD ORDERABLES Final Resul t [facility] [address] [place] [address], [place] [phone] * (ABNORMAL) Complete blood count (03/22/2024 6:50 [...] [place] LAB HEMETOLOGY METHOD 03/22/2024 8:32 AM EST [facility] MCH 28.0 27.0 - 32.0 pcg LAB HEMETOLOGY METHOD 03/22/2024 8:32 AM EST [facility] MCHC 28.4(L) 32.0 - 37.0 g/dL LAB HEMETOLOGY METHOD 03/22/2024 8:32 AM EST [facility] RDW 17.8(H) 11.0 - 15.0 % LAB HEMETOLOGY METHOD 03/22/2024 8:32 AM EST [facility] Platelets 218 130 - 400 K/mcL LAB HEMETOLOGY METHOD 03/22/2024 8:32 AM [facility] MPV 10.7 7.0 - 11.0 [place] LAB HEMETOLOGY METHOD 03/22/2024 8:32 AM EST [facility] NRBC 0.0 <1.0 % LAB HEMETOLOGY METHOD 03/22/2024 8:32 AM [facility] NRBC Absolute 0.00 <0.10 K/mcL LAB HEMETOLOGY METHOD 03/22/2024 8:32 AM [facility] Blood Venous blood specimen / Unknown Venipuncture / Unknown 03/22/2024 6:50 AM EST 03/22/2024 8:05 AM EST us Catalina Burr MD LAB BLOOD ORDERABLES Final Resul t [facility] [address] [place] [address], [place] [phone] documented in this encounter Visit Diagnoses Diagnosis Chronic embolism and thrombosis of unspecified vein Acute kidney failure, unspecified (CMS/HCC) Acute kidney failure, unspecified Type 2 diabetes mellitus without complications (CMS/HCC) documented in this encounter Care Teams Electric Motor Repairing Supervisor Relationship Specialty Start Date End Date Marita Wetzel DO [address] [place] [address] PCP - General 01/09/23 documented as of this encounter
--- OUTSIDE RECORDS SUMMARY | 2024-06-23 22:22 | XMS_ITS | Encounter Summary ---
Author Organization [facility] Address [address] [place] [address] 7 [place] [address] Care Team Providers Care Milling/Polishing Operator Name Role Phone Marita Wetzel DO Primary Care Provider + [phone] Reason for Visit * Reason Onset Date Comments Medication Question 06/22/2024 Encounter Details Date Type Department Care Team ([facility] st Contact Info) Description 06/22/2024 Telephone [facility] [address] [place] [address] Marita Wetzel DO [address] [place] [address] Medication Question Social History Tobacco Use Types Packs/Day Years [...] encounter Miscellaneous Notes * Telephone Encounter - Lisha Astudillo RN - 06/22/2024 1:25 PM EST Per PCP, patient to hold sertraline until Linezolid abx is completed. TC returned to [facility] [phone] to inform of PCP POC regarding medication interaction. Tesha verbalized understanding. Emigdio f/u PRN. * Telephone Encounter - Lisha Astudillo RN - 06/22/2024 1:11 PM EST TC returned to [facility] [phone] who report there is a medication interaction between Linezolid 600 Mg Tablet and Sertraline HCl 25mg. Patient was Rx'd Linezolid at [facility] during recent admission. RN called [facility] pharmacy who reports they both increase the risk of serotonin syndrome and it is a level 1 (which is completely contraindicated). Please review and advise on POC. * Telephone Encounter - Asaf Ortiz - 06/22/2024 12:08 PM EST Tc from Tesha from [facility] requesting a call back about an interaction of two medication pt is currently taking. Tesha([facility]): [phone] documented in this encounter Plan of Treatment Upcoming Encounters Date Type Department Care Team (Late st Contact Info) Description 08/20/2024 10:00 AM EDT Office Visit [facility] [address] [place] [address] Marita Wetzel DO [address] [place] [address] documented as of this encounter Goals Goal Patient Goal Type Associated Problems Recent Progress Patient-Stated? Author Hemoglobin A1c < 7 Result Component 5.9( 4 9:43 AM EDT) No Carmen Becker, PharmSalvatore Record your blood sugar as directed Result [...] documented as of this encounter Care Teams Milling/Polishing Operator Relationship Specialty Start Date End Date Marita Wetzel DO [address] [place] [address] PCP - General Family Medicine 04/21/18 [facility] 05/22/24 documented as of this encounter
--- OUTSIDE RECORDS SUMMARY | 2024-06-23 22:22 | XMS_ITS | Encounter Summary ---
Author Organization [facility] Address [address] [place] [address] Phone Care Team Providers Care Conceptor Name Role Phone Marita Wetzel DO Primary Care Provider Unava ilable Encounter Details Date Type Department Care Team (Late st Contact Info) Description 09/26/2022 Documentation Only [facility] [address] [place] [phone] Candace Adam PA Social History Tobacco Use [...] Only [facility] [place] V[facility] Access Center [address] [place] [phone] documented as of this encounter Visit Diagnoses Not on filedocumented in this encounter Care Teams Conceptor Relationship Specialty Start Date End Date Marita Wetzel DO [address] [place] [address] PCP - General Family Medicine 11/14/22 documented as of this encounter
--- OUTSIDE RECORDS SUMMARY | 2024-06-23 22:22 | XMS_ITS | Encounter Summary ---
Author Organization [facility] Address [address] [place] [address] Care Team Providers Care Supervisor Powdered Metal Name Role Phone Marita Wetzel DO Primary Care Provider +[phone]- [phone] Encounter Details Date Type Department Care Team (Late st Contact Info) Description 04/10/2024 Lab Requisition [facility] - Main Lab [address] [facility] [phone] Marily Gordillo MD [address] [place] [phone] Chronic embolism and thrombosis of unspecified vein; [...] unspecified documented in this encounter Care Teams Supervisor Powdered Metal Relationship Specialty Start Date End Date Marita Wetzel DO [address] [place], [place] PCP - General 01/09/23 documented as of this encounter
--- OUTSIDE RECORDS SUMMARY | 2024-06-23 22:22 | XMS_ITS | Encounter Summary ---
Author Organization [facility] Address [address] [place] [address] Phone Care Team Providers Care Extractor Filler Name Role Phone Marita Wetzel DO Primary Care Provider Unava ilable Encounter Details Date Type Department Care Team (Late st Contact Info) Description 06/12/2023 Documentation Only [facility] [address] [place] [phone] [place] [address] [place] [phone] Social History Tobacco Use Types Packs/Day Years [...] Only [facility] [address] [place] [phone] documented as of this encounter Visit Diagnoses Not on filedocumented in this encounter Care Teams Extractor Filler Relationship Specialty Start Date End Date Marita Wetzel DO [address] [place] [address] PCP - General Family Medicine 11/14/22 documented as of this encounter
--- OUTSIDE RECORDS SUMMARY | 2024-06-23 22:22 | XMS_ITS | Encounter Summary ---
Author Organization [facility] Address [address] [place] [address] Phone Care Team Providers Care Delicatessen Clerk Name Role Phone Marita Wetzel DO Primary Care Provider Unava ilable Encounter Details Date Type Department Care Team (Late st Contact Info) Description 04/13/2024 Documentation Only [facility] [address] [phone] [place] [address] [place] [phone] Social History Tobacco Use Types Packs/Day Years [...] [facility] [address] [place] [phone] documented as of this encounter Visit Diagnoses Not on filedocumented in this encounter Care Teams Delicatessen Clerk Relationship Specialty Start Date End Date Marita Wetzel DO [address] [place] [address] PCP - General Family Medicine 11/14/22 documented as of this encounter
--- OUTSIDE RECORDS SUMMARY | 2024-06-23 22:22 | XMS_ITS | Encounter Summary ---
Author Organization [facility] Address [address] [place] [address] Care Team Providers Care Manager Cable Name Role Phone Marita Wetzel Primary Care Provider +1- [phone] Encounter Details Date Type Department Care Team (Late st Contact Info) Description 03/29/2024 Lab Requisition [facility] - Main Lab [address] [place] [address] Catalina Burr MD [address] [place] [address] End stage renal disease (CMS/HCC) Social History [...] developed and the performance characteristics determined by [facility]. This confirmation testing has not been cleared or approved by the FDA. The laboratory is regulated under CLIA as qualified to perform high-complexity testing. This test is used for patient testing purposes. It should not be regarded as investigational or for research. Test performed at [facility], [facility] [place], [place] ??[address] ? [phone] Ashtyn Leigh MD, PhD - Art Objects Repairer Blood Venous blood specimen / Unknown Venipuncture / Unknown 03/29/2024 6:53 AM EST 03/29/2024 8:32 AM EST us Catalina Burr MD LAB BLOOD ORDERABLES Final Resul t [place] [address] * (ABNORMAL) Renal function panel (03/29/2024 6:53 AM EST) Sodium 140 133 - 145 mmol/L LAB CHEMISTRY METHOD 03/29/2024 10:07 AM [facility] Potassium 3.9 3.5 - 5.5 mmol/L LAB CHEMISTRY METHOD 03/29/2024 10:07 AM [facility] Chloride 109 96 - 110 mmol/L LAB CHEMISTRY METHOD 03/29/2024 10:07 AM [facility] CO2 20(L) 21 - 32 mmol/L LAB CHEMISTRY METHOD 03/29/2024 10:07 AM [facility] Anion Gap 11 3 - 11 LAB CHEMISTRY METHOD 03/29/2024 10:07 AM [facility] Glucose 146(H) 70 - 100 mg/dL LAB CHEMISTRY METHOD 03/29/2024 10:07 AM [facility] BUN 42(H) 5 - 25 mg/dL LAB CHEMISTRY METHOD 03/29/2024 10:07 AM [facility] Creatinine 3.47(H) 0.50 - 1.10 mg/dL LAB CHEMISTRY METHOD 03/29/2024 10:07 AM [facility] eGFR 14(L) >=60 mL/min/1. 73m2 LAB CHEMISTRY METHOD 03/29/2024 10:07 AM [facility] Comment:Calculation based on the??Chronic Kidney Disease Epidemiology Collaboration (CKD-EPI) equation refit??without adjustment for race. BUN/Creatinine Ratio 12.1 LAB CHEMISTRY METHOD 03/29/2024 10:07 AM [facility] Albumin 2.0(L) 3.2 - 5.0 g/dL LAB CHEMISTRY METHOD 03/29/2024 10:07 AM [facility] Calcium 8.8 8.5 - 10.5 mg/dL LAB CHEMISTRY METHOD 03/29/2024 10:07 AM [facility] Phosphorus 2.5 2.5 - 4.5 mg/dL LAB CHEMISTRY METHOD 03/29/2024 10:07 AM [facility] Blood Venous blood specimen / Unknown Venipuncture / Unknown 03/29/2024 6:53 AM EST 03/29/2024 8:32 AM EST us Catalina Burr MD LAB BLOOD ORDERABLES Final Resul t [facility] [address] [place] [address], * (ABNORMAL) Complete blood count (03/29/2024 6:53 AM EST) WBC 11.0(H) 4.8 - 10.8 K/mcL LAB HEMETOLOGY METHOD 03/29/2024 9:47 AM [facility] RBC 2.80(L) 3.80 - 4.80 M/mcL LAB HEMETOLOGY METHOD 03/29/2024 9:47 AM [facility] Hemoglobin 7.7(L) 11.5 - 16.0 g/dL LAB HEMETOLOGY METHOD 03/29/2024 9:47 AM [facility] Hematocrit 27.0(L) 35.0 - 47.0 % LAB HEMETOLOGY METHOD 03/29/2024 9:47 AM [facility] MCV 97.8 79.0 - 98.0 FL LAB HEMETOLOGY METHOD 03/29/2024 9:47 AM [facility] MCH 27.9 27.0 - 32.0 pcg LAB HEMETOLOGY METHOD 03/29/2024 9:47 AM [facility] MCHC 28.5(L) 32.0 - 37.0 g/dL LAB HEMETOLOGY METHOD 03/29/2024 9:47 AM EST [facility] RDW 17.5(H) 11.0 - 15.0 % LAB HEMETOLOGY METHOD 03/29/2024 9:47 AM [facility] Platelets 301 130 - 400 K/mcL LAB HEMETOLOGY METHOD 03/29/2024 9:47 AM [facility] MPV 10.3 7.0 - 11.0 FL LAB HEMETOLOGY METHOD 03/29/2024 9:47 AM EST [facility] NRBC 0.0 <1.0 % LAB HEMETOLOGY METHOD 03/29/2024 9:47 AM [facility] NRBC Absolute 0.00 <0.10 K/mcL LAB HEMETOLOGY METHOD 03/29/2024 9:47 AM [facility] Blood Venous blood specimen / Unknown Venipuncture / Unknown 03/29/2024 6:53 AM EST 03/29/2024 8:32 AM EST us Catalina Burr MD LAB BLOOD ORDERABLES Final Resul t [facility] [address] [place] [address], documented in this encounter Visit Diagnoses Diagnosis End stage renal disease (CMS/[facility]) End stage renal disease documented in this encounter Care Teams Manager Cable Relationship Specialty Start Date End Date Marita Wetzel DO [address] [place] [address] PCP - General 01/09/23 documented as of this encounter
--- OUTSIDE RECORDS SUMMARY | 2024-06-23 22:23 | XMS_ITS | Encounter Summary ---
Author Organization [facility], Address [address] [place] [address] Phone Care Team Providers Care Football Pad Repairer Name Role Phone Marita Wetzel DO Primary Care Provider Unava ilable Reason for Visit * Reason Comments Med Refill Encounter Details Date Type Department Care Team (Late Contact Info) Description 01/04/2021 Refill [facility] [address] [place] [phone] Bernardo Doty MD [address] [place] [address] [place] [address] Social History Tobacco Use Types [...] Only [facility] - V[facility] Center [address] [place] [address] [place] [address] documented as of this encounter Visit Diagnoses Not on filedocumented in this encounter Care Teams Football Pad Repairer Relationship Specialty Start Date End Date Marita Wetzel DO [address] [place] [address] PCP - General Family Medicine 7/27/23 documented as of this encounter
--- OUTSIDE RECORDS SUMMARY | 2024-06-23 22:23 | XMS_ITS | Encounter Summary ---
Author Organization [facility], Address [address] [place] [address] Phone Care Team Providers Care Microelectronics Technician Name Role Phone Marita Wetzel DO Primary Care Provider Unava ilable Reason for Visit * Reason Onset Date Comments NS port flush- pt at [facility] 06/10/2024 Encounter Details Date Type Department Care Team (Late st Contact Info) Description 06/10/2024 Telephone [facility], - Vascular Access Center [address] [place] [address] Hazel Zepeda [address] [place] [phone] NS port flush- pt at [facility] Social History Tobacco Use Types Packs/Day Years [...] * Telephone Encounter - Hazel Zepeda - 06/10/2024 1:10 PM EST S/W pt's , Rishi. Pt NS for port flush and Sly reports pt is admitted to [facility]. Will follow to set up port flush upon d/c. documented in this encounter Plan of Treatment Upcoming Encounters Date Type Department Care Team (Late st Contact Info) Description 07/13/2024 12:30 PM EDT Scheduled Only [facility] - [facility] [address] [place] [address] documented as of this encounter Visit Diagnoses Not on filedocumented in this encounter Care Teams Microelectronics Technician Relationship Specialty Start Date End Date Marita Wetzel DO [address] [place] [address] PCP - General Family Medicine 11/14/22 documented as of this encounter
--- OUTSIDE RECORDS SUMMARY | 2024-06-23 22:23 | XMS_ITS | Encounter Summary ---
Author Organization [facility], Address [address] [place] [address] Phone Care Team Providers Care Provider Relations Rep Name Role Phone Marita Wetzel DO Primary Care Provider Unava ilable Encounter Details Date Type Department Care Team (Late st Contact Info) Description 06/21/2024 Treatment [facility], [address] [place] [phone] Jeanne Bailey MD [facility] [address] [place] [address] End stage renal disease; Dependence on renal dialysis Social History Tobacco Use Types Packs/Day Years [...] Dialysis Note - Jeanne Bailey MD - 06/21/2024 12:00 AM EST Patient: Alix Sharp : 1960 Note Type: Dialysis Rounds-Comp Service Date: 06/21/2024 This patient was personally seen for a complete visit as part of routine monthly dialysis care for end stage renal disease. Attending Road Roller Engineer: JEANNE BAILEY MD Dialysis Location: [facility] D[facility] Schedule: Shift: 3 OVERVIEW COMMENTS: [...] Run even or positive. HOME MEDICATIONS [facility] amlodipine 10 mg tablet Take [...] capsule by mouth once a day. Current [facility] Allergies Allergen: codeine Reaction: Unknown Allergen: oxycodone Reaction: Unknown DIALYSIS PRESCRIPTION Treatment Data Treatment Date: 06/21/2024 started at: 2:51 PM Dialysate / Machine Temp (prescribed): 36.0*C Dialysate / Machine Temp (actual): 35.9*C BFR (prescribed): 450 BFR (average delivered): 340 DFR (prescribed): Manual 500 DFR (average delivered): 500 Prescribed Time: 03:15 Actual Time: 03:03 EDW (kg): 52.0 Dialyzer: 160NRe Optiflux Dialysate: 2.0 K, 2.50 Ca, 1.0 Mg, 100 Dextrose ([id number]) Sodium: 137 Bicarb: 35 Pre Dialysis Vitals Pre BP Sit: 160/85 Pre Wt (kg): 55.7 EDW Deviation (kg): 3.7 Temp: 97.3*F Post Dialysis Vitals Post BP Sit: 139/65 Post Wt (kg): 54.0 TREATMENT MEDICATIONS ORDERS Mircera 200 mcg IVP Every 2 weeks During Dialysis 06/02/2024 - 06/01/2025 BP AND FLUID ASSESSMENT Post BP Sit 139/65 - 06/21/2024 126/59 - 06/18/2024 118/64 - 05/24/2024 Post Wt (kg) 54.0 - 06/21/2024 52.2 - 06/18/2024 46.0 - 05/24/2024 EDW (kg) 52.0 - 06/21/2024 45.5 - 06/18/2024 45.5 - 05/24/2024 Deviation (kg) 2.0 - 06/21/2024 6.7 - 06/18/2024 0.5 - 05/24/2024 ADEQUACY ASSESSMENT Missed Treatments 10 - Last 30 days 15 - Last 60 days Most recently missed on 06/16/2024 spKt/V (Daugirdas II) 1.39 (05/10/24) 1.04 (04/23/24) eKdrt/V 1.12 (05/10/24) % Urea Reduction 69 (05/10/24) 59 (04/23/24) BUN 44 (06/18/24) 49 (05/10/24) 44 (04/23/24) BUN Post Dialysis 15 (05/10/24) 18 (04/23/24) Creatinine 3.39 (06/18/24) 3.62 (04/23/24) 3.26 (04/20/24) Bicarbonate (CO2) 23 (06/18/24) 27 (04/30/24) 21 (04/23/24) Sodium 137 (06/18/24) 142 (04/23/24) 143 (04/20/24) ACCESS ASSESSMENT AVGraft Synthetic - Standard (PTFE) Left Upper Arm Active (In Use) - 04/23/2024 Placed - 01/22/2024 ANEMIA ASSESSMENT Hemoglobin 7.9 (06/18/24) 8.5 (05/24/24) 7.4 (05/05/24) Hgb 6.5 (07/03/23) Iron Saturation (TSat) 53 (06/18/24) 28 (04/23/24) 17 (04/20/24) Ferritin 1,648 (06/18/24) 3,177 (04/23/24) 3,884 (04/20/24) Iron 99 (06/18/24) 31 (04/23/24) 19 (04/20/24) TIBC 188 (06/18/24) 111 (04/23/24) 109 (04/20/24) Reticulocyte Hemoglobin 26.0 (04/23/24) MCV 94 (04/23/24) 94 (04/20/24) 94 (02/10/24) Platelets 193 (04/20/24) 266 (02/10/24) 365 (02/03/24) BMM ASSESSMENT Calcium 8.5 06/18/24 8.6 04/23/24 9.0 04/20/24 Corrected Calcium 9.4 06/18/24 9.6 04/23/24 Phosphorus 3.2 06/18/24 2.5 04/23/24 2.1 04/20/24 Calcium Phosphorus Product 27 06/18/24 22 04/23/24 PTH 145 06/18/24 63 04/23/24 Vitamin D, 25-OH, Total 48.2 04/23/24 19.2 10/06/23 Magnesium 1.9 06/18/24 1.3 04/23/24 1.4 10/06/23 Alkaline Phosphatase 54 04/23/24 Aluminum 31 04/30/24 97 04/23/24 NUTRITION ASSESSMENT Albumin 2.9 06/18/24 2.7 04/23/24 2.9 04/20/24 Potassium 4.2 06/18/24 5.7 05/24/24 5.0 05/05/24 eNPCR 0.67 05/10/24 Hemoglobin A1C 5.8 04/23/24 6.1 04/20/24 5.8 02/03/24 ADDITIONAL LABS COMMENTS: 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 INR 1.0 (10/06/23) 1.0 (08/05/23) WBC 9.46 (04/23/24) 11.3 (04/20/24) 9.4 (02/10/24) White Blood Cells 13.6 (07/03/23) Cholesterol 115 (10/06/23) HDL 31 (10/06/23) LDL Calculated 57 (10/06/23) Triglycerides 157 (10/06/23) Hepatitis B Surface Ab 632 (04/23/24) 1,682.0 (04/20/24) 1,959.0 (02/10/24) ADDITIONAL COMMENT COMMENTS: 06/21/24 Patient is stable, recently cd from [facility] after episode of pneumonia Medications reviewed Physical Exam Vital signs: reviewed [...] reviewed. Dietary adjustments made in conjunction with material handler loader. Transplant: Not a candidate. 05/24/24 Patient is stable Medications reviewed Physical [...] reviewed. Dietary adjustments made in conjunction with material handler loader. 7.Transplant: Not a candidate. decreasing tacrolimus doing [...] reviewed. Dietary adjustments made in conjunction with material handler loader. Transplant: The patient will be re-evaluated for a kidney transplant. Signed by: JEANNE BAILEY MD on 06/21/2024 at 10:23:12 PM documented in this encounter Plan of Treatment Upcoming Encounters Date Type Department Care Team (Late st Contact Info) Description 07/13/2024 12:30 PM EDT Scheduled Only [facility], - Vascular Access Center [address] [place] [phone] documented as of this encounter Visit Diagnoses Diagnosis End stage renal disease Dependence on renal dialysis documented in this encounter Care Teams Provider Relations Rep Relationship Specialty Start Date End Date Marita Wetzel DO [address] [place] [address] PCP - General Family Medicine 11/14/22 documented as of this encounter
--- OUTSIDE RECORDS SUMMARY | 2024-06-23 22:23 | XMS_ITS | Encounter Summary ---
Author Organization [facility] Address [address] [place] [address] Care Team Providers Care Posting Specialist Name Role Phone Marita Wetzel Primary Care Provider +1- [phone] Encounter Details Date Type Department Care Team (Late st Contact Info) Description 02/25/[address] [facility] - Main Lab [address] [place] [address] Catalina Burr MD [address] [place] [address] Chronic embolism and thrombosis of unspecified vein; [...] Travel phlebotomy fee (02/25/2024 6:30 AM EST) [facility] TRAVEL PHLEBOTOMY FEE Completed 02/25/2024 11:01 AM EST [facility] Blood Venous blood specimen / Unknown Venipuncture / Unknown 02/25/2024 6:30 AM EST 02/25/2024 10:25 AM EST us Catalina Burr MD LAB BLOOD ORDERABLES Final Resul t [facility] [address] [place] [address], * (ABNORMAL) Tacrolimus level (02/25/2024 6:30 AM [...] developed and the performance characteristics determined by [facility]. This confirmation testing has not been cleared or approved by the FDA. The laboratory is regulated under CLIA as qualified to perform high-complexity testing. This test is used for patient testing purposes. It should not be regarded as investigational or for research. Test performed at [facility], [address] , [place], [place] ??[address] ? [phone] Ashtyn Leigh MD, PhD - Lan/Wan Engineer Blood Venous blood specimen / Unknown Venipuncture / Unknown 02/25/2024 6:30 AM EST 02/25/2024 10:25 AM EST us Catalina Burr MD LAB BLOOD ORDERABLES Final Resul t [facility] [address] [place] [address] documented in this encounter Visit Diagnoses Diagnosis Chronic embolism and thrombosis of unspecified vein Acute kidney failure, unspecified (CMS/HCC) Acute kidney failure, unspecified documented in this encounter Care Teams Posting Specialist Relationship Specialty Start Date End Date Marita Wetzel DO [address] [place] [address] PCP - General 01/09/23 documented as of this encounter
--- OUTSIDE RECORDS SUMMARY | 2024-06-23 22:23 | XMS_ITS | Encounter Summary ---
Author Organization [facility], Address [address] [place] [phone] Phone Care Team Providers Care Level Vial Curvature Gauger Name Role Phone Marita Wetzel DO Primary Care Provider Unava ilable Reason for Visit * Reason Comments Med Refill Encounter Details Date Type Department Care Team (Late Contact Info) Description 06/18/2024 Refill [facility] [address] [place] [phone] Srinivas Agrawal MD [address] [place] [address] [place] [address] Social History Tobacco Use Types [...] Only [facility], - Vascular Access Center [address] [place] [address] [place] [address] documented as of this encounter Procedures Procedure Name Priority Date/Time Associated Diagnosis Comments HD KINETICS Routine 06/18/2024 POST CHEMISTRY Routine 06/18/2024 IMMUNO CHEMISTRY Routine 06/18/2024 HEMATOLOGY Routine 06/18/2024 CHEMISTRY Routine 06/18/2024 CHEMISTRY Routine 06/18/2024 documented in this encounter Results * HD KINETICS (06/18/2024) Pathologist [facility] % Urea Reduction 70 65 - 80 % [facility] 06/18/2024 06/22/2024 9:5 5 AM EST Narrative Resulting Agency Comment Specimen source: Plasma Result [facility] Srinivas Agrawal MD LAB BLOOD ORDERABLES Final Result Performing Organization Address City/[facility]/ZIP Co de Phone Number [facility] See order comments or contact performing lab Unknown, [place] * POST CHEMISTRY (06/18/2024) Pathologist [facility] BUN Post Dialysis 13 6 - 19 mg/dL [facility] 06/18/2024 06/22/2024 9:5 5 AM EST Narrative [facility] - 06/22/2024 Unless otherwise specified, test(s) performed at: [facility], [address] [place] [address] CLINICAL OUTCOMES MANAGER: Dwayne Fuentes M.D. For any questions, please call customer service at FREQUENCY:MONTHLY Resulting Agency Comment Specimen source: Plasma Result [facility] Srinivas Agrawal MD LAB BLOOD ORDERABLES Final Result [employer] [employer] See order comments or contact performing lab Unknown, [place] * IMMUNO CHEMISTRY (06/18/2024) [facility] Hep B Surface Ag Negative Negative [facility] 06/18/2024 06/19/2024 11: 21 AM EST Narrative Resulting Agency Comment Specimen source: Serum Result [facility] Srinivas Agrawal MD LAB BLOOD ORDERABLES Final Result Performing Organization Address [facility]/ZIP Co de Phone Number [employer] See order comments or contact performing lab Unknown, [place] * (ABNORMAL) [facility] (06/18/2024) BUN 44(H) 6 - 19 mg/dL [facility] [...] 06/19/2024 Unless otherwise specified, test(s) performed at: [facility], [address] [place] [address] CLINICAL OUTCOMES MANAGER: Dwayne Fuentes M.D. For any questions, please call customer service at FREQUENCY:MONTHLY Resulting Agency Comment Specimen source: Serum Srinivas Agrawal MD LAB BLOOD ORDERABLES Edite d Result - Final [facility] See order comments or contact performing lab Unknown, [place] * (ABNORMAL) HEMATOLOGY (06/18/2024) Hemoglobin 7.9(L) 12.0 - 16.0 g/dL [facility] Hemoglobin x 3 23.7(L) 36.0 - 48.0 % [facility] 06/18/2024 06/19/2024 12: 24 PM EST Narrative [facility] - 06/19/2024 Unless otherwise specified, test(s) performed at: [facility], [address] [place] [id number] CLINICAL OUTCOMES MANAGER: Dwayne Fuentes M.D. For any questions, please call customer service at FREQUENCY:MONTHLY Resulting Agency Comment Specimen source: Blood Srinivas Agrawal MD LAB BLOOD ORDERABLES Final Result Performing Organization Address [facility] Co de Phone Number [facility] See order comments or contact performing lab Unknown, [place] * (ABNORMAL) [facility] Chemistry (06/18/2024) PTH 145(H) 16 - 80 pg/mL [facility] 06/18/2024 06/19/2024 11: 40 AM EST Narrative [facility] - 06/19/2024 Unless otherwise specified, test(s) performed at: [facility], [address] [place] [id number] CLINICAL OUTCOMES MANAGER: Dwayne Fuentes M.D. For any questions, please call customer service at FREQUENCY:MONTHLY Resulting Agency Comment Specimen source: Plasma Srinivas Agrawal MD LAB BLOOD ORDERABLES Final Result [employer] See order comments or contact performing lab Unknown, [place] documented in this encounter Visit Diagnoses Not on filedocumented in this encounter Care Teams Level Vial Curvature Gauger Relationship Specialty Start Date End Date Marita Wetzel DO [address] [place] [address] PCP - General Family Medicine 11/14/22 documented as of this encounter
--- OUTSIDE RECORDS SUMMARY | 2024-06-23 22:23 | XMS_ITS | Encounter Summary ---
Author Organization [facility], Address [address] [place] [address] Phone Care Team Providers Care Ice Cream Server Name Role Phone Marita Wetzel DO Primary Care Provider Unava ilable Reason for Visit * Reason Comments Med Refill Encounter Details Date Type Department Care Team (Late Contact Info) Description 05/08/2021 Refill [facility] [address] [place] [phone] Bernardo Doty MD [address] [place] [address] [place] [address] Social History Tobacco Use Types [...] Only [facility] - V[facility] Center [address] [place] [address] [place] [address] documented as of this encounter Visit Diagnoses Not on filedocumented in this encounter Care Teams Ice Cream Server Relationship Specialty Start Date End Date Marita Wetzel DO [address] [place] [address] PCP - General Family Medicine 7/27/23 documented as of this encounter
--- OUTSIDE RECORDS SUMMARY | 2024-06-23 22:23 | XMS_ITS | Encounter Summary ---
Author Organization [facility] Address [address] [place] [address] Care Team Providers Care Systems Test Analyst Name Role Phone Mary JaneMarita yousif Primary Care Provider [phone]- [phone] Encounter Details Date Type Department Care Team (Late st Contact Info) Description 02/24/2024 Lab Requisition [facility] - Main Lab [address] [facility] [place] [address] Norbert Lopez MD [address] [facility] [address] [facility] [address] Encounter for other specified prophylactic measures; [...] Travel phlebotomy fee (02/24/2024 12:45 PM EST) [facility] HOME TRAVEL PHLEBOTOMY FEE Completed 02/24/2024 2:01 PM EST [facility] Blood Venous blood specimen / Unknown Venipuncture / Unknown 02/24/2024 12:45 PM EST 02/24/2024 1:29 PM EST Norbert Lopez MD LAB BLOOD ORDERABLES Final Resul t Performing Organization Address [facility] Co de Phone Number [facility] [address] [place] [address], [place] [phone] * (ABNORMAL) Heparin and low molecular weight anti Xa level (02/24/2024 12:45 PM EST) [facility] Heparin Anti-Xa 0.28(L) 0.30 - 0.70 I Unit/mL LAB COAGULATION METHOD 02/24/2024 2:02 PM EST [facility] Blood Venous blood specimen / Unknown Venipuncture / Unknown 02/24/2024 12:45 PM EST 02/24/2024 1:29 PM EST Narrative [facility] - 02/24/2024 2:02 PM EST Therapeutic range listed is for Unfractionated Heparin. LMW Heparin therapeutic range: 0.50-1.20 IU/mL Norbert Lopez MD LAB BLOOD ORDERABLES Final Resul t Performing Organization Address [facility]/ZIP Co de Phone Number [facility] [address] [place] [address], [place] [phone] * (ABNORMAL) Basic metabolic panel (02/24/2024 12:45 PM EST) [facility] Sodium 137 133 - 145 mmol/L LAB CHEMISTRY METHOD 02/24/2024 3:10 PM EST [facility] Potassium 3.7 3.5 - 5.5 mmol/L LAB CHEMISTRY METHOD 02/24/2024 3:10 PM [facility] Chloride 104 96 - 110 mmol/L LAB CHEMISTRY METHOD 02/24/2024 3:10 PM [facility] CO2 22 21 - 32 mmol/L LAB CHEMISTRY METHOD 02/24/2024 3:10 PM [facility] Anion Gap 11 3 - 11 LAB CHEMISTRY METHOD 02/24/2024 3:10 PM [facility] Glucose 163(H) 70 - 100 mg/dL LAB CHEMISTRY METHOD 02/24/2024 3:10 PM [facility] BUN 33(H) 5 - 25 mg/dL LAB CHEMISTRY METHOD 02/24/2024 3:10 PM [facility] Creatinine 3.25(H) 0.50 - 1.10 mg/dL LAB CHEMISTRY METHOD 02/24/2024 3:10 PM [facility] eGFR 15(L) >=60 mL/min/1. 73m2 LAB CHEMISTRY METHOD 02/24/2024 3:10 PM [facility] Comment:Calculation based on the??Chronic Kidney Disease Epidemiology Collaboration (CKD-EPI) equation refit??without adjustment for race. BUN/Creatinine Ratio 10.2 LAB CHEMISTRY METHOD 02/24/2024 3:10 PM [facility] Calcium 9.4 8.5 - 10.5 mg/dL LAB CHEMISTRY METHOD 02/24/2024 3:10 PM [facility] Blood Venous blood specimen / Unknown Venipuncture / Unknown 02/24/2024 12:45 PM EST 02/24/2024 1:29 PM EST us Norbert Lopez MD LAB BLOOD ORDERABLES Final Resul t [facility] [address] [place] [address], [place] [phone] * (ABNORMAL) Complete blood count (02/24/2024 12:45 PM EST) [facility] Signature WBC 11.3(H) 4.8 - 10.8 K/mcL LAB HEMETOLOGY METHOD 02/24/2024 1:38 PM [facility] RBC 3.30(L) 3.80 - 4.80 M/mcL LAB HEMETOLOGY METHOD 02/24/2024 1:38 PM [facility] Hemoglobin 9.2(L) 11.5 - 16.0 g/dL LAB HEMETOLOGY METHOD 02/24/2024 1:38 PM [facility] Hematocrit 31.3(L) 35.0 - 47.0 % LAB HEMETOLOGY METHOD 02/24/2024 1:38 PM [facility] MCV 95.4 79.0 - 98.0 FL LAB HEMETOLOGY METHOD 02/24/2024 1:38 PM [facility] MCH 28.0 27.0 - 32.0 pcg LAB HEMETOLOGY METHOD 02/24/2024 1:38 PM [facility] MCHC 29.4(L) 32.0 - 37.0 g/dL LAB HEMETOLOGY METHOD 02/24/2024 1:38 PM [facility] RDW 16.6(H) 11.0 - 15.0 % LAB HEMETOLOGY METHOD 02/24/2024 1:38 PM [facility] Platelets 278 130 - 400 K/mcL LAB HEMETOLOGY METHOD 02/24/2024 1:38 PM [facility] MPV 10.7 7.0 - 11.0 FL LAB HEMETOLOGY METHOD 02/24/2024 1:38 PM [facility] NRBC 0.0 <1.0 % LAB HEMETOLOGY METHOD 02/24/2024 1:38 PM EST [facility] NRBC Absolute 0.00 <0.10 K/mcL LAB HEMETOLOGY METHOD 02/24/2024 1:38 PM EST [facility] Blood Venous blood specimen / Unknown Venipuncture / Unknown 02/24/2024 12:45 PM EST 02/24/2024 1:29 PM EST us Norbert Lopez MD LAB BLOOD ORDERABLES Final Resul t [facility] [address] [place] [address], documented in this encounter Visit Diagnoses Diagnosis Encounter for other specified prophylactic measures Acute kidney failure, unspecified (CMS/HCC) Acute kidney failure, unspecified documented in this encounter Care Teams Systems Test Analyst Relationship Specialty Start Date End Date Marita Wetzel DO [address] [place] [address] PCP - General 01/09/23 documented as of this encounter
[2024-06-23 22:24] LABS: Alanine Aminotransferase 6 U/L (0-31); Albumin Level 3.1 g/dL (3.5-5.0); Alkaline Phosphatase 99 U/L (39-117); Anion Gap 15 (12-20); Aspartate Amino Transferase 16 U/L (5-31); Bilirubin Total 0.3 mg/dL (0.0-1.0); Blood Urea Nitrogen 11 mg/dL (9-16); Calcium 8.5 mg/dL (8.4-10.2); Carbon Dioxide 24 mmol/L (22-29); Chloride 105 mmol/L (96-108); Creatinine Clr Calc Pharmacy 28.1; Estimated Glomerular Filt Rate 31; Glucose Random 127 mg/dL (60-115); Potassium 3.4 mmol/L (3.3-5.1); Sodium 141 mmol/L (135-145); Total Protein 6.8 g/dL (6.5-8.0)
[2024-06-23 22:28] LABS: Platelet Count 80 X10*3/uL (160-400)
--- NOTE | 2024-06-23 22:28 | PC.NURSE ---
pt from wr to ed16 at this time. placed on bed lee per request.
--- NOTE | 2024-06-23 23:21 | ED.RECABL ---
HPI - Recheck/Abnormal Lab/Rx General Chief Complaint: Recheck/Abnormal Lab/Rx Stated Complaint: BLOOD TRANSFUSION Time Seen by Provider: 06/23/24 23:08 Source: patient Mode of arrival: ambulatory Limitations: no limitations History of Present Illness ED Provider: Dr. Grace Fernandez HPI narrative: patient comes to the emergency room stating that she received a phone call from her PCP, patient was told that her hemoglobin is in the 6.0 range and they asked her to come to the emergency room to get a blood transfusion. Patient states that she has a multiple transfusions in the past. However, patient states that she does not feel physically decompensated as when her hemoglobin is low. patient denies chest pain or shortness of breath, denies weakness. Patient states that she has been a lot of hours in the emergency room and feels tired but other than that she does not have any complaints. Related Data Home Medications ?Medication ?Instructions ?Recorded ?Confirmed acetaminophen 325 mg tablet 650 mg PO Q6H PRN Fever 04/07/24 05/28/24 carvedilol 25 mg tablet 25 mg PO BID 04/07/24 05/28/24 diphenhydramine HCl 25 mg tablet 25 mg PO BID PRN itchiness 04/07/24 05/28/24 docusate sodium 100 mg capsule 100 mg PO BID PRN Constipation 04/07/24 05/28/24 hydromorphone 4 mg tablet 4 mg PO Q4H PRN moderate to severe 04/07/24 05/28/24 pain insulin lispro 200 unit/mL (3 mL) 2 - 10 sliding scale dose subcut 04/07/24 05/28/24 subcutaneous pen TID isosorbide mononitrate 30 mg 30 mg PO DAILY 04/07/24 05/28/24 tablet,extended release 24 hr pantoprazole 40 mg tablet,delayed 40 mg PO DAILY@0630 04/07/24 05/28/24 release prednisone 2.5 mg tablet 7.5 mg PO DAILY 04/07/24 05/28/24 sertraline 25 mg tablet 25 mg PO DAILY 04/07/24 05/28/24 sodium bicarbonate 650 mg tablet 1,300 mg PO BID 04/07/24 05/28/24 sucralfate 1 gram tablet 1 g PO QIDACHS 04/07/24 05/28/24 epoetin natali 40,000 unit/mL 40,000 unit IV MO 05/28/24 injection solution (Procrit) magnesium oxide 400 mg PO BID 05/28/24 05/28/24 multivitamin 1 tab PO DAILY 05/28/24 05/28/24 tacrolimus 4 mg tablet,extended 8 mg PO DAILY@0730 05/28/24 05/28/24 release 24 hr Previous Rx's ?Medication ?Instructions ?Recorded linezolid 600 mg tablet (Zyvox) 600 mg PO BID #80 tabs 06/05/24 sulfamethoxazole 400 11.5 ml IV Q8H 06/05/24 mg-trimethoprim 80 mg/5 mL intravenous solution Allergies Allergy/AdvReac Type Severity Reaction Status Date / Time codeine [CODEINE] Allergy Intermediate Hives and Verified 06/23/24 21:20 pruritus oxycodone [OXYCODONE] Allergy Intermediate HIVES Verified 06/23/24 21:20 Review of Systems Review of Systems: Constitutional : No Weight loss, No Fever, No Chills, No Night Sweats, No Fatigue, No Malaise ENT/Mouth : No Hearing loss, No Ear Pain, No Nasal Congestion, No Sinus Pain, No Hoarseness, No sore throat, No Rhinorrhea, No Swallowing Difficulty Eyes: No Eye Pain, No Swelling, No Redness, No Foreign Body, No Discharge, No Vision Changes Cardiovascular : No Chest Pain, No SOB, No Dyspnea on Exertion, No Orthopnea, No Edema, No Palpitations Respiratory : No Cough, No Sputum, No Wheezing, No Smoke Exposure, No Dyspnea Gastrointestinal : No Nausea, No Vomiting, No Diarrhea, No Constipation, No abdominal Pain, No Hematochezia, No Melena Genitourinary : no irregular bleeding, No Dysuria, No Urinary Frequency, No Hematuria, No Urinary Incontinence, No Urgency, No Flank Pain, No Urinary Flow Changes, No Hesitancy Musculoskeletal : No joint pain, No Myalgias, No Joint Swelling Skin : No Skin Lesions, No rash Neuro : No Weakness, No Numbness, No Paresthesias, No Loss of Consciousness, No Dizziness, No Headache Psych : No Anxiety/Panic, No Depression, No SI/HI/AH/VH, No Social Issues, Heme/Lymph: No Bruising, No Bleeding,No Lymphadenopathy Endocrine : No Polyuria, No Polydipsia, No Temperature Intolerance PMFSH Past Medical History Medical History HTN (hypertension) Mood disorder 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 Mother CHF (congestive heart failure) Social History Social History Household Members: Spouse Housing: House Do you presently have visiting nurse or other home services: Yes Alcohol intake: never Comment: patient is bedbound at this time Patient Tobacco Use Status: Never used Tobacco Advance Directives: Yes Advance Directives on File: Yes Advance Directives Date on File: 04/07/24 service: Yes Physical Exam Vital Signs: Vital Signs: Last Vital Signs Temp 97.3 F 06/23/24 21:18 Pulse 75 06/23/24 21:18 Resp 20 06/23/24 21:18 BP 164/61 H 06/23/24 21:18 Pulse Ox 100 06/23/24 21:18 O2 Del Method Room Air 06/23/24 21:18 BMI result Body Mass Index 18.7 Const: Other: Appearance: Alert. Oriented X3. No acute distress. Eyes: Pupils equal, round and reactive to light. ENT: Pharynx normal. Neck: Normal inspection. Neck supple. No lymph nodes noted. No crepitus CVS: Normal heart rate and rhythm. Pulses normal. Normal S1 and S2 Respiratory: No respiratory distress. Breath sounds normal. No Wheezing. No rales Abdomen: Soft and nontender. No rigidity. No distention. Skin: Skin warm and dry. Normal skin color. Normal skin turgor. Extremities: No lower extremity edema. No Lacerations. No Rash Neuro: Oriented X 3. No motor deficit. No sensory deficit. Moving all extremities. No slurred speech. CN 2 through 12 grossly intact Psych: calm, cooperative, normal affect Medical Decision Making Medical Decision Making [facility] Narrative: I discussed the labs with the patient. Patient's hemoglobin today is 8.2, hematocrit 26.6. Patient's creatinine is 1.68 BUN 11, potassium 3.4 I discussed with the patient that usually her hemoglobin range is between 7.7-8.4. I discussed with the patient that if she feels very weak or asymptomatic, we can give her 1 unit. However, patient states that she is asymptomatic and would prefer not to receive blood if her hemoglobin is in the 8.0 range. Patient will follow-up with the primary care physician, patient states that she feels well to be discharged home. patient was provided with a copy of her labs from today. Differential Diagnosis Differential Diagnoses: The differential diagnosis associated with the presentation includes ( Chronic anemia kidney disease, hemodilution from previous labs) Lab Data [facility] Lab Attestation statement: I reviewed the patient's lab results. 06/23/24 22:01 06/23/24 22:01 Labs: Lab Results 06/23/24 Range/Units 22:01 WBC 5.4 (4.8-10.8) X10*3/uL RBC 2.67 L (4.20-5.50) X10*6/uL Hgb 8.2 L (12.0-16.0) g/dl Hct 26.6 L (37.0-47.0) % MCV 99.6 H (80.0-98.0) fL MCH 30.7 (27.0-33.0) pg MCHC 30.8 L (31.0-35.0) g/dl RDW 24.6 H (11.0-16.0) % Plt Count 80 L (160-400) X10*3/uL MPV 11.0 (9.4-12.3) fL Immature Gran % (Auto) 0.4 (0.0-0.4) % Neut % (Auto) 76.3 H (45-73) % Lymph % (Auto) 12.1 L (20-40) % Dickenson % (Auto) 8.6 (2-11) % Eos % (Auto) 2.4 (0-4) % Baso % (Auto) 0.2 (0-2) % Lymph # (Auto) 0.7 L (1.2-4.9) X10*3/uL Dickenson # (Auto) 0.5 (0.1-1.2) X10*3/uL Eos # (Auto) 0.1 (0.0-0.4) X10*3/uL Baso # (Auto) 0.0 (0.0-0.2) X10*3/uL Abs Immat Gran (auto) 0.02 (0.00-0.03) X10*3/uL Absolute Neuts (auto) 4.1 (2.0-8.3) x10*3/uL Absolute Nucleated RBC 0.020 H (0.0-0.012) X10*3/uL Nucleated RBC % (auto) 0.4 H (0.0-0.2) /100WBC Sodium 141 (135-145) mmol/L Potassium 3.4 D (3.3-5.1) mmol/L Chloride 105 (96-108) mmol/L Carbon Dioxide 24 (22-29) mmol/L Anion Gap 15 (12-20) BUN 11 (9-16) mg/dL Creatinine 1.68 H (0.5-1.4) mg/dL Estim Creat Clear Calc 28.1 Estimated GFR 31 Random Glucose 127 H (60-115) mg/dL Calcium 8.5 (8.4-10.2) mg/dL Total Bilirubin 0.3 (0.0-1.0) mg/dL AST 16 (5-31) U/L ALT 6 (0-31) U/L Alkaline Phosphatase 99 (39-117) U/L Total Protein 6.8 (6.5-8.0) g/dL Albumin 3.1 L (3.5-5.0) g/dL Blood Type A Positive Antibody Screen NEGATIVE Discharge Plan Discharge Clinical Impression: Chronic anemia Patient Disposition: Home, Self-Care Instructions: Anemia (ED) Additional Instructions: Please follow-up with your primary care physician tomorrow. If you have any worsening or new symptoms, please return to the emergency room or call 911 Prescriptions: No Action Procrit 40,000 unit/mL solution 40,000 unit IV MO Rx Instructions: 05/28/24:Spoke to inpatient pharmacy at [facility] to confirm dose. [facility] confirmed that patient hasn't received while she was inpatient. They may be getting it out patient. Spoke to out patient renal unit and they have not seen patient yet. multivitamin Tablet 1 tab PO DAILY tacrolimus 4 mg Tablet Extended Release 24 Hr 8 mg PO DAILY@0730 Rx Instructions: must be taken on empty stomach magnesium oxide 400 mg magnesium Tablet 400 mg PO BID linezolid [Zyvox] 600 mg tablet 600 mg PO BID Qty: 80 0RF sulfamethoxazole-trimethoprim 400-80 mg/5 mL solution 11.5 ml IV Q8H carvedilol 25 mg Tablet 25 mg PO BID Rx Instructions: must administer with a meal/food acetaminophen 325 mg Tablet 650 mg PO Q6H PRN (Reason: Fever) sucralfate 1 gram Tablet 1 g PO QIDACHS isosorbide mononitrate 30 mg Tablet Extended Release 24 Hr 30 mg PO DAILY sodium bicarbonate 650 mg Tablet 1,300 mg PO BID prednisone 2.5 mg Tablet 7.5 mg PO DAILY pantoprazole 40 mg Tablet,Delayed Release (Dr/Ec) 40 mg PO DAILY@0630 diphenhydramine HCl 25 mg Tablet 25 mg PO BID PRN (Reason: itchiness) docusate sodium 100 mg Capsule 100 mg PO BID PRN (Reason: Constipation) sertraline 25 mg Tablet 25 mg PO DAILY hydromorphone 4 mg Tablet 4 mg PO Q4H PRN (Reason: moderate to severe pain) insulin lispro 200 unit/mL (3 mL) Insulin Pen 2 - 10 sliding scale dose SUBCUT TID Rx Instructions: if 150-199 = 2 units, 200-249 = 4 units, 250-299 = 6 units, 300-349 = 8 units, 350-399 = 10 units, 400+ call Print Language: Georgian
--- NOTE | 2024-06-23 23:24 | PC.NURSE ---
Rishi Spouse notified pt is ready for d/c and states he will come pick her up.
[2024-06-24 00:07] VITALS: BP 154/90; PULSE 82; RESP 18; TEMP 36.8; O2SAT 100
== END 2024-06-24 00:08 | disposition home or self-care (01) ==
PROVIDERS: Emergency Provider Emergency Medicine
DX: I12.0 Hypertensive chronic kidney disease with stage 5 chronic kidney disease or end stage renal disease (principal); N18.6 End stage renal disease; D63.1 Anemia in chronic kidney disease; E11.22 Type 2 diabetes mellitus with diabetic chronic kidney disease; Z79.4 Long term (current) use of insulin; Z99.2 Dependence on renal dialysis
CPT/HCPCS: 36415; 80053; 85025; 86850; 86900; 86901; 99282; 99283

== ENCOUNTER 2024-07-01 21:28 | Emergency (ER) | payer MEDICARE, OTHER, SELFPAY ==
[2024-07-01 21:38] VITALS: BP 137/41; PULSE 71; RESP 16; TEMP 37; O2SAT 100; BMI 25.8
[2024-07-01 22:02] LABS: Basophils Percent Auto 0.2 % (0-2); Eosinophils Absolute Auto 0.2 X10*3/uL (0.0-0.4); Eosinophils Percent Auto 2.6 % (0-4); Hematocrit 22.4 % (37.0-47.0); Imm Gran Abs Auto 0.05 X10*3/uL (0.00-0.03); Imm Gran Pct Auto 0.9 % (0.0-0.4); Lymphocytes Percent Auto 17.7 % (20-40); Mean Corpuscular HGB Conc 31.3 g/dl (31.0-35.0); Mean Corpuscular Hemoglobin 31.5 pg (27.0-33.0); Mean Corpuscular Volume 100.9 fL (80.0-98.0); Mean Platelet Volume 10.2 fL (9.4-12.3); Monocytes Absolute Auto 0.9 X10*3/uL (0.1-1.2); NRBC Pct Auto 0.5 /100WBC (0.0-0.2); Neutrophils Absolute Auto 3.6 x10*3/uL (2.0-8.3); Neutrophils Percent Auto 62.6 % (45-73); Platelet Count 178 X10*3/uL (160-400); Red Blood Count 2.22 X10*6/uL (4.20-5.50); Red Cell Distribution Width 25.9 % (11.0-16.0); White Blood Count 5.8 X10*3/uL (4.8-10.8)
[2024-07-01 22:03] LABS: MANUAL DIFF FLAG NO
[2024-07-01 22:15] LABS: Alanine Aminotransferase 7 U/L (0-31); Albumin Level 3.2 g/dL (3.5-5.0); Alkaline Phosphatase 140 U/L (39-117); Anion Gap 14 (12-20); Aspartate Amino Transferase 11 U/L (5-31); Bilirubin Total 0.2 mg/dL (0.0-1.0); Blood Urea Nitrogen 12 mg/dL (9-16); Calcium 8.7 mg/dL (8.4-10.2); Carbon Dioxide 23 mmol/L (22-29); Chloride 105 mmol/L (96-108); Creatinine Clr Calc Pharmacy 19.9; Estimated Glomerular Filt Rate 16; Glucose Random 173 mg/dL (60-115); Potassium 3.3 mmol/L (3.3-5.1); Sodium 139 mmol/L (135-145); Total Protein 6.8 g/dL (6.5-8.0)
[2024-07-01 22:29] VITALS: BP 140/56; PULSE 70; RESP 14; TEMP 36.7; O2SAT 100
--- NOTE | 2024-07-01 22:51 | PC.NURSE ---
Patient had previously accessed R sided port. Smooth flush & good blood return. Type and Screen obtained
--- NOTE | 2024-07-01 23:09 | ED_ITS ---
HPI - Recheck/Abnormal Lab/Rx General Chief Complaint: Recheck/Abnormal Lab/Rx Stated Complaint: BLD transfusion Time Seen by Provider: 07/01/24 22:59 Source: patient Mode of arrival: ambulatory Limitations: no limitations History of Present Illness ED Provider: Dr. Grace Fernandez HPI narrative: Patient comes to the emergency room stating that her PCP called her to let her know that she needs a blood transfusion. Patient is known to be chronically anemic due to end-stage renal disease. Patient states that she has no symptoms at all. Patient states that she went to physical therapy today, patient had a normal workout, did not feel fatigued or short of breath, denies any chest pain. Patient states that usually when she knows when her blood levels are low because she feels drained but that is not the case today. Related Data Home Medications ?Medication ?Instructions ?Recorded ?Confirmed acetaminophen 325 mg tablet 650 mg PO Q6H PRN Fever 04/07/24 05/28/24 carvedilol 25 mg tablet 25 mg PO BID 04/07/24 05/28/24 diphenhydramine HCl 25 mg tablet 25 mg PO BID PRN itchiness 04/07/24 05/28/24 docusate sodium 100 mg capsule 100 mg PO BID PRN Constipation 04/07/24 05/28/24 hydromorphone 4 mg tablet 4 mg PO Q4H PRN moderate to severe 04/07/24 05/28/24 pain insulin lispro 200 unit/mL (3 mL) 2 - 10 sliding scale dose subcut 04/07/24 05/28/24 subcutaneous pen TID isosorbide mononitrate 30 mg 30 mg PO DAILY 04/07/24 05/28/24 tablet,extended release 24 hr pantoprazole 40 mg tablet,delayed 40 mg PO DAILY@0630 04/07/24 05/28/24 release prednisone 2.5 mg tablet 7.5 mg PO DAILY 04/07/24 05/28/24 sertraline 25 mg tablet 25 mg PO DAILY 04/07/24 05/28/24 sodium bicarbonate 650 mg tablet 1,300 mg PO BID 04/07/24 05/28/24 sucralfate 1 gram tablet 1 g PO QIDACHS 04/07/24 05/28/24 epoetin natali 40,000 unit/mL 40,000 unit IV MO 05/28/24 injection solution (Procrit) magnesium oxide 400 mg PO BID 05/28/24 05/28/24 multivitamin 1 tab PO DAILY 05/28/24 05/28/24 tacrolimus 4 mg tablet,extended 8 mg PO DAILY@0730 05/28/24 05/28/24 release 24 hr Previous Rx's ?Medication ?Instructions ?Recorded linezolid 600 mg tablet (Zyvox) 600 mg PO BID #80 tabs 06/05/24 sulfamethoxazole 400 11.5 ml IV Q8H 06/05/24 mg-trimethoprim 80 mg/5 mL intravenous solution Allergies Allergy/AdvReac Type Severity Reaction Status Date / Time codeine [CODEINE] Allergy Intermediate Hives and Verified 07/01/24 21:40 pruritus oxycodone [OXYCODONE] Allergy Intermediate HIVES Verified 07/01/24 21:40 Review of Systems 2 Review of Systems: Constitutional : No Weight loss, No Fever, No Chills, No Night Sweats, No Fatigue, No Malaise ENT/Mouth : No Hearing loss, No Ear Pain, No Nasal Congestion, No Sinus Pain, No Hoarseness, No sore throat, No Rhinorrhea, No Swallowing Difficulty Eyes: No Eye Pain, No Swelling, No Redness, No Foreign Body, No Discharge, No Vision Changes Cardiovascular : No Chest Pain, No SOB, No Dyspnea on Exertion, No Orthopnea, No Edema, No Palpitations Respiratory : No Cough, No Sputum, No Wheezing, No Smoke Exposure, No Dyspnea Gastrointestinal : No Nausea, No Vomiting, No Diarrhea, No Constipation, No abdominal Pain, No Hematochezia, No Melena Genitourinary : no irregular bleeding, No Dysuria, No Urinary Frequency, No Hematuria, No Urinary Incontinence, No Urgency, No Flank Pain, No Urinary Flow Changes, No Hesitancy Musculoskeletal : No joint pain, No Myalgias, No Joint Swelling Skin : No Skin Lesions, No rash Neuro : No Weakness, No Numbness, No Paresthesias, No Loss of Consciousness, No Dizziness, No Headache Psych : No Anxiety/Panic, No Depression, No SI/HI/AH/VH, No Social Issues, Heme/Lymph: No Bruising, No Bleeding,No Lymphadenopathy Endocrine : No Polyuria, No Polydipsia, No Temperature Intolerance [facility] Past Medical History Medical History Pneumonia, community acquired Hyperkalemia Acute hyperglycemia HTN (hypertension) Mood disorder 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 Mother CHF (congestive heart failure) Social History Social History Household Members: Spouse Housing: House Do you presently have visiting nurse or other home services: Yes Alcohol intake: never Comment: patient is bedbound at this time Patient Tobacco Use Status: Never used Tobacco Smoked in Last 30 Days: No Use of substances other than those prescribed or required for medical reasons: No Advance Directives: Yes Advance Directives on File: Yes Advance Directives Date on File: 04/07/24 Do you have a plan to hurt others: No Plan service: Yes Physical Exam 2 Vital Signs: Vital Signs: Last Vital Signs Temp 99 F 07/02/24 00:27 Pulse 68 07/02/24 00:27 Resp 19 07/02/24 00:27 BP 139/64 07/02/24 00:27 Pulse Ox 100 07/01/24 22:29 O2 Del Method Room Air 07/01/24 22:29 BMI result Body Mass Index 25.8 Const: Other: Appearance: Alert. Oriented X3. No acute distress. Eyes: Pupils equal, round and reactive to light. ENT: Pharynx normal. Neck: Normal inspection. Neck supple. No lymph nodes noted. No crepitus CVS: Normal heart rate and rhythm. Pulses normal. Normal S1 and S2 Respiratory: No respiratory distress. Breath sounds normal. No Wheezing. No rales Abdomen: Soft and nontender. No rigidity. No distention. Skin: Skin warm and dry. Normal skin color. Normal skin turgor. Extremities: No lower extremity edema. No Lacerations. No Rash Neuro: Oriented X 3. No motor deficit. No sensory deficit. Moving all extremities. No slurred speech. CN 2 through 12 grossly intact Psych: calm, cooperative, normal affect Medical Decision Making Medical Decision Making MDM Narrative: my interpretation of labs: Patient's hematology shows a hemoglobin of 7.0, hematocrit of 22.4. Patient's baseline hemoglobin ranges between 7 and 8. Patient is asymptomatic. However, her hemoglobin did drop from 8.2 from last time that she was here, 1 week ago. Patient agreeable to get transfused. 1 unit will be given I discussed with the patient the risks versus benefits of the blood transfusion. Patient states that she is well aware and has had multiple transfusions. Patient has signed consent and is agreeable to proceed with the transfusion patient tolerated well the transfusion, patient feeling well, ready for discharge Differential Diagnosis Differential Diagnoses: The differential diagnosis associated with the presentation includes ( chronic anemia) Admission/Observation Consideration of admission/observation: Escalation of care including admission/observation considered ( given patient's past medical history and labs, observation has been considered) Lab Data MDM Lab Attestation statement: I reviewed the patient's lab results. 07/01/24 21:57 07/01/24 21:57 Labs: Lab Results 07/01/24 07/01/24 Range/Units 21:57 22:44 WBC 5.8 (4.8-10.8) X10*3/uL RBC 2.22 L (4.20-5.50) X10*6/uL Hgb 7.0 L* (12.0-16.0) g/dl Hct 22.4 L (37.0-47.0) % MCV 100.9 H (80.0-98.0) fL MCH 31.5 (27.0-33.0) pg MCHC 31.3 (31.0-35.0) g/dl RDW 25.9 H (11.0-16.0) % Plt Count 178 D (160-400) X10*3/uL MPV 10.2 (9.4-12.3) fL Immature Gran % (Auto) 0.9 H (0.0-0.4) % Neut % (Auto) 62.6 (45-73) % Lymph % (Auto) 17.7 L (20-40) % [place] % (Auto) 16.0 H (2-11) % Eos % (Auto) 2.6 (0-4) % Baso % (Auto) 0.2 (0-2) % Lymph # (Auto) 1.0 L (1.2-4.9) X10*3/uL [place] # (Auto) 0.9 (0.1-1.2) X10*3/uL Eos # (Auto) 0.2 (0.0-0.4) X10*3/uL Baso # (Auto) 0.0 (0.0-0.2) X10*3/uL Abs Immat Gran (auto) 0.05 H (0.00-0.03) X10*3/uL Absolute Neuts (auto) 3.6 (2.0-8.3) x10*3/uL Absolute Nucleated RBC 0.030 H (0.0-0.012) X10*3/uL Nucleated RBC % (auto) 0.5 H (0.0-0.2) /100WBC Sodium 139 (135-145) mmol/L Potassium 3.3 (3.3-5.1) mmol/L Chloride 105 (96-108) mmol/L Carbon Dioxide 23 (22-29) mmol/L Anion Gap 14 (12-20) BUN 12 (9-16) mg/dL Creatinine 2.91 H (0.5-1.4) mg/dL Estim Creat Clear Calc 19.9 Estimated GFR 16 Random Glucose 173 H (60-115) mg/dL Calcium 8.7 (8.4-10.2) mg/dL Total Bilirubin 0.2 (0.0-1.0) mg/dL AST 11 (5-31) U/L ALT 7 (0-31) U/L Alkaline Phosphatase 140 H (39-117) U/L Total Protein 6.8 (6.5-8.0) g/dL Albumin 3.2 L (3.5-5.0) g/dL Blood Type A Positive Antibody Screen NEGATIVE Crossmatch See Detail Critical Care Time Critical Care Time Critical Care Time: Yes Total Critical Care Time: 45 Attestation: I have personally provided critical care time. Time includes review of lab data, radiology results, discussion with consultants, and monitoring for potential decompensation. Intervention performed as documented. Discharge Plan Discharge Clinical Impression: Chronic anemia Patient Disposition: Home, Self-Care Instructions: Anemia (ED) Additional Instructions: Please follow-up with your primary care physician tomorrow. If you have any worsening or new symptoms, please return to the emergency room or call 911 Prescriptions: No Action Procrit 40,000 unit/mL solution 40,000 unit IV MO Rx Instructions: 05/28/24:Spoke to inpatient pharmacy at [facility] to confirm dose. [facility] confirmed that patient hasn't received while she was inpatient. They may be getting it out patient. Spoke to out patient renal unit and they have not seen patient yet. multivitamin Tablet 1 tab PO DAILY tacrolimus 4 mg Tablet Extended Release 24 Hr 8 mg PO DAILY@0730 Rx Instructions: must be taken on empty stomach magnesium oxide 400 mg magnesium Tablet 400 mg PO BID linezolid [Zyvox] 600 mg tablet 600 mg PO BID Qty: 80 0RF sulfamethoxazole-trimethoprim 400-80 mg/5 mL solution 11.5 ml IV Q8H carvedilol 25 mg Tablet 25 mg PO BID Rx Instructions: must administer with a meal/food acetaminophen 325 mg Tablet 650 mg PO Q6H PRN (Reason: Fever) sucralfate 1 gram Tablet 1 g PO QIDACHS isosorbide mononitrate 30 mg Tablet Extended Release 24 Hr 30 mg PO DAILY sodium bicarbonate 650 mg Tablet 1,300 mg PO BID prednisone 2.5 mg Tablet 7.5 mg PO DAILY pantoprazole 40 mg Tablet,Delayed Release (Dr/Ec) 40 mg PO DAILY@0630 diphenhydramine HCl 25 mg Tablet 25 mg PO BID PRN (Reason: itchiness) docusate sodium 100 mg Capsule 100 mg PO BID PRN (Reason: Constipation) sertraline 25 mg Tablet 25 mg PO DAILY hydromorphone 4 mg Tablet 4 mg PO Q4H PRN (Reason: moderate to severe pain) insulin lispro 200 unit/mL (3 mL) Insulin Pen 2 - 10 sliding scale dose SUBCUT TID Rx Instructions: if 150-199 = 2 units, 200-249 = 4 units, 250-299 = 6 units, 300-349 = 8 units, 350-399 = 10 units, 400+ call Print Language: Urdu
--- NOTE | 2024-07-01 23:26 | PC.NURSE ---
assumed care of pt at this time. report received from Danyelle DENNIS. per previous RN, pt came with accessed port that she uses at home for transfusions. flushes and pulls back well. pt waiting for blood transfusion, consent form signed and filled out by MD Fernandez. type and screen pending.
[2024-07-02 00:05] VITALS: BP 140/62; PULSE 70; RESP 17; TEMP 37.1
--- NOTE | 2024-07-02 00:13 | PC.NURSE ---
blood transfusion started at 00:12 verified with second RN Annita. pt on cardiac specialist resting comfortably
[2024-07-02 00:27] VITALS: BP 139/64; PULSE 68; RESP 19; TEMP 37.2
[2024-07-02 03:12] VITALS: BP 144/65; PULSE 67; RESP 17; TEMP 37.2; O2SAT 99
[2024-07-02 03:14] VITALS: BP 144/65; PULSE 67; RESP 17; TEMP 37.2
[2024-07-02 03:28] VITALS: BP 144/65; PULSE 67; RESP 17; TEMP 37.2; O2SAT 99
== END 2024-07-02 03:29 | disposition home or self-care (01) ==
PROVIDERS: Emergency Provider Emergency Medicine; PCP Family Medicine
DX: D64.9 Anemia, unspecified (principal); R79.89 Other specified abnormal findings of blood chemistry; E11.22 Type 2 diabetes mellitus with diabetic chronic kidney disease; I12.0 Hypertensive chronic kidney disease with stage 5 chronic kidney disease or end stage renal disease; N18.6 End stage renal disease; Z79.4 Long term (current) use of insulin; Z79.899 Other long term (current) drug therapy
CPT/HCPCS: 36415; 36430; 80053; 85025; 86850; 86900; 86901; 86923; 99284; 99285; P9016

== ENCOUNTER 2024-07-07 13:11 | Outpatient (AMB) | payer MEDICARE, OTHER, SELFPAY ==
--- NOTE | 2024-07-07 13:17 | A.OFFVIS_ITS ---
Vital Signs 07/07/24 13:28 BP 140/80 H Pulse 66 Pulse Oximetry (%) 100 Intake Visit Reasons: hmc reff Allergies codeine [CODEINE] Allergy (Intermediate, Verified 07/07/24 13:27) Hives and pruritus oxycodone [OXYCODONE] Allergy (Intermediate, Verified 07/07/24 13:27) HIVES HPI HPI hmc reff: Details: She has been taking four weeks IV Bactrim for nocardia nova and feels better. 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 Mother CHF (congestive heart failure) Social History Household Members: Spouse Housing: House Do you presently have visiting nurse or other home services: Yes Alcohol intake: never Comment: patient is bedbound at this time Patient Tobacco Use Status: Never used Tobacco Advance Directives Date on File: 04/07/24 service: Yes Review of Systems Const All systems reviewed & are unremarkable except as noted in HPI and below Physical Exam Vital Signs: Last Vital Signs Pulse 66 07/07/24 13:28 BP 140/80 H 07/07/24 13:28 Pulse Ox 100 07/07/24 13:28 Const General: cooperative Orientation/consciousness: patient oriented x3 HEENT Head: Yes normal to inspection Mouth: Normal oral and palatal mucosa present Eyes General: appearance normal, both eyes and all related structures Pupils: Equal, round and reactive pupils present Resp Effort & Inspection: normal respiratory effort Cardio Rate: regular rate Rhythm: regular rhythm GI Palpation (GI): Soft to palpation and nontender General: Yes no CVA tenderness Back/Spine/Pelvis Back: no CVA tenderness Skin General skin exam: no rashes or lesions noted Neuro General: patient oriented x3 Cranial nerves: Yes CN's II-XII intact bilaterally and Yes Equal, round and reactive pupils present Extrem General: Yes normal to inspection Psych Appearance: grossly normal Assessment & Plan Assessment & Plan (1) Disseminated nocardiosis: Comment: Doing well Code(s): A43.9 - Nocardiosis, unspecified Category: Medical Plan: 3 more weeks IV Bactrim with weekly CBC and creatinine Check CXR See in three weeks. Orders: Orders XR chest 2V 07/07/24 A43.9 - Nocardiosis, unspecified Coding Level of Care Code Est Pt Level 3 (98304) Diagnoses Disseminated nocardiosis A43.9
[2024-07-07 13:28] VITALS: BP 140/80; PULSE 66; O2SAT 100
== END 2024-07-07 14:34 | disposition home or self-care (01) ==
LOC: HO.HID 13:11
PROVIDERS: PCP Family Medicine; Visit Provider Internal Medicine
DX: A43.9 Nocardiosis, unspecified (principal)
CPT/HCPCS: 99213

== ENCOUNTER 2024-07-07 13:11 | Outpatient (REF) | payer MEDICARE, OTHER, SELFPAY ==
--- NOTE | ~2024-07-07 | XR_ITS ---
EXAMINATION: XR CHEST 2 VIEWS HISTORY: A43.9 - Nocardiosis, unspecified COMPARISON: Comparison is made with the prior examination dated 06/03/2024. FINDINGS: PA and lateral views of the chest are submitted. A right-sided port is unchanged in position. There is prominence of the pulmonary vasculature. There is a small right pleural effusion which is larger than on the prior study. Patchy opacity in the right lower lung zone may represent pneumonia. The left lung is clear. The heart remains enlarged. The aorta is calcified. The bones are intact. XR/XR chest 2V IMPRESSION: Cardiomegaly. Pulmonary vascular congestion and small right pleural effusion. Right lower lobe pneumonia. Electronically signed by: Db Berry MD 07/08/2024 08:23 AM EDT
== END 2024-07-07 13:12 | disposition home or self-care (01) ==
LOC: HO.XRAY 13:11
PROVIDERS: PCP Family Medicine; Visit Provider Internal Medicine
DX: A43.9 Nocardiosis, unspecified (principal)
CPT/HCPCS: 71046; 99212

== ENCOUNTER → 2024-07-07 14:14 | Outpatient (BNV) | payer MEDICARE, OTHER, SELFPAY | PROVIDERS: PCP Family Medicine; Visit Provider Radiology Diagnostic Radiology | DX: A43.9 Nocardiosis, unspecified (principal) | CPT/HCPCS: 71046 ==

== ENCOUNTER 2024-07-27 10:00 | Outpatient (REF) | payer MEDICARE, OTHER, SELFPAY ==
--- OUTSIDE RECORDS SUMMARY | 2024-07-27 11:37 | XMS_ITS ---
Author Organization [facility] Address [address] [place] [address] Care Team Providers Care Account Collector Name Role Phone Miryam Tyson Unavailable [phone] Encounters Encounter Location Date Provider Diagnosis [facility] [address] [place] [address] 07/02/2024 Miryam Tyson Plan Of Treatment No Information Progress Notes * Farhan BEARDaDOB:1960 (64 yo F)Acc No.[id number]:07/02/2024 Progress Notes Patient:?Alix BEARD Provider:?Miryam Tyson DPM :1960???Age:64 Y???Sex:Female D ate:07/02/2024 Address:[address] [place], [place] [phone] Subjective: * Chief Complaints: * ??? * Medical History:? Objective: * Vitals:? Assessment: Plan: * Treatment: * Images: * The named appointment provid er may or may not be the originator of this progress note, and it is not deemed complete until electronically signed by the appointment provider. Sign off status: Pending * Provider:?Miryam Tyson DPM Date:? Generated for Michael santos/Chloe/Oraliaitting on:?07/27/2024 11:37 AM EDT
--- OUTSIDE RECORDS SUMMARY | 2024-07-27 11:37 | XMS_ITS | Encounter Summary ---
Author Organization [facility] Address [address] [place] [address] Phone Care Team Providers Care Leather Piece Inspector Name Role Phone Marita Wetzel DO Primary Care Provider Unava ilable Encounter Details Date Type Department Care Team (Late st Contact Info) Description 10/03/2023 Documentation Only [facility] [address] [place] [phone] Srinivas Agrawal MD [address] [place] [address] [place] [address] Social History Tobacco Use Types [...] Care Team (Late st Contact Info) Description 11/03/2024 12:30 PM EDT Scheduled Only [facility] [address] [place] [address] [place] [phone] documented as of this encounter Visit Diagnoses Not on filedocumented in this encounter Care Teams Leather Piece Inspector Relationship Specialty Start Date End Date Marita Wetzel DO [address] [place] [phone] PCP - General Family Medicine 11/14/22 documented as of this encounter
--- OUTSIDE RECORDS SUMMARY | 2024-07-27 11:37 | XMS_ITS | Encounter Summary ---
Author Organization [facility] Address [address] [place] [address] Phone Care Team Providers Care Fixed Capital Clerk Name Role Phone Damari Marita Primary Care Provider Unava ilable Encounter Details Date Type Department Care Team (Late st Contact Info) Description 05/01/2023 Documentation Only [facility] [address] [place] [phone] [place] [address] [place] [phone] Social History Tobacco Use Types Packs/Day Years [...] Only [facility] [address] [place] [phone] Scheduled Orders Name Type Priority Associated Diagnoses [...] Primary documented in this encounter Care Teams Fixed Capital Clerk Relationship Specialty Start Date End Date Marita Wetzel DO [address] [place] [address] PCP - General Family Medicine 11/14/22 documented as of this encounter
--- OUTSIDE RECORDS SUMMARY | 2024-07-27 11:37 | XMS_ITS | Patient Health Record ---
Author Organization [facility] Address [address] [place] [address] Care Team Providers Care Meter Supervisor Name Role Phone FiorellasylwiaMiryam Unavailable [phone] Reason For Referral No Information Encounters Encounter Location Date Provider Diagnosis [facility] [address] [place] [address] 04/22/2024 Miryam Tyson [facility] [address] [place] [address] 06/17/2024 Miryam Tyson Plan Of Treatment No Information Insurance Providers Payer Name Payer Address Payer Phone Subscriber Number Group Number Insured Name Patient Relationship to Insured Coverage Start Date Coverage End Date Medicare National [facility] [address] [place] [address] [id number] Alix Sharp Self - patient is the insured for Life [address] [place] [phone] [id number] Alix Sharp Self - patient is the insured
--- OUTSIDE RECORDS SUMMARY | 2024-07-27 11:37 | XMS_ITS | Encounter Summary ---
Author Organization [facility] Address [address] [place] [address] Phone Care Team Providers Care Poultry Boner Name Role Phone Marita Wetzel DO Primary Care Provider Unava ilable Encounter Details Date Type Department Care Team (Late Contact Info) Description 10/06/2023 Documentation Only [facility] [address] [place] [phone] [place] [address] [place] [phone] Social History Tobacco Use Types Packs/Day Years [...] Department Care Team (Late Contact Info) Description 11/03/2024 12:30 PM EDT Scheduled Only [facility] [address] [place] [phone] documented as of this encounter Visit Diagnoses Not on filedocumented in this encounter Care Teams Poultry Boner Relationship Specialty Start Date End Date Marita Wetzel DO [address] [place] [address] PCP - General Family Medicine 11/14/22 documented as of this encounter
--- OUTSIDE RECORDS SUMMARY | 2024-07-27 11:37 | XMS_ITS ---
Author Organization [facility] Address [address] [place] [address] Care Team Providers Care Broaching Machine Set Up Operator Name Role Phone Miryam Tyson Unavailable [phone] REASON FOR VISIT ELECTRONIC PUBLISHING SPECIALIST Encounters Encounter Location Date Provider Diagnosis [facility] [address] [place] [address] 04/22/2024 Miryam Tyson Plan Of Treatment No Information Progress Notes * Chris BEARDB:1960 (63 yo F)Acc No.[id number]:04/22/2024 Patient:?Alix BEARD :1960???Age:63 Y???Sex:Female Address:[address] [place] [address], [phone] * true * Date:? Generated for Michael santos/Chloe/eTransmitting on:?07/27/2024 11:37 AM EDT
--- OUTSIDE RECORDS SUMMARY | 2024-07-27 11:37 | XMS_ITS | Encounter Summary ---
Author Organization [facility] Address [address] [place] [address] Phone Care Team Providers Care Money Room Supervisor Name Role Phone Marita Wetzel DO Primary Care Provider Unava ilable Encounter Details Date Type Department Care Team (Late st Contact Info) Description 04/18/2023 Documentation Only [facility] [address] [place] [phone] Jerod Adames DO [address] [place] [phone] Social History Tobacco Use Types Packs/Day Years [...] Only [facility] - [facility] [address] [place] [phone] documented as of this encounter Visit Diagnoses Not on filedocumented in this encounter Care Teams Money Room Supervisor Relationship Specialty Start Date End Date Marita Wetzel DO [address] [place] [address] PCP - General Family Medicine 11/14/22 documented as of this encounter
--- OUTSIDE RECORDS SUMMARY | 2024-07-27 11:37 | XMS_ITS | Encounter Summary ---
Author Organization [facility] Address [address] [place] [address] Phone Care Team Providers Care Sales Management Trainee Name Role Phone Marita Wetzel DO Primary Care Provider Unava ilable Encounter Details Date Type Department Care Team (Late st Contact Info) Description 05/20/2023 Documentation Only [facility] [address] [place] [phone] [place] [address] [place] [phone] Social History Tobacco Use Types Packs/Day Years [...] Only [facility] [address] [place] [phone] documented as of this encounter Visit Diagnoses Not on filedocumented in this encounter Care Teams Sales Management Trainee Relationship Specialty Start Date End Date Marita Wetzel DO [address] [place] [address] PCP - General Family Medicine 11/14/22 documented as of this encounter
--- OUTSIDE RECORDS SUMMARY | 2024-07-27 11:38 | XMS_ITS | Encounter Summary ---
Author Organization [employer] Address [address] [place] [address] 7 [place] [address] Care Team Providers Care Account Auditor Name Role Phone Marita Wetzel DO Primary Care Provider [phone] Carmen Becker PharmD Unavailable [phone] Encounter Details Date Type Department Care Team (Late st Contact Info) Description 12/11/2022 Orders Only [facility] [address] [place] [address] Heather Nesbitt, SONNY [address] [place] [address] Social History Tobacco Use Types Packs/Day Years [...] Description 08/20/2024 10:00 AM EDT Office Visit [facility] [address] [place] [address] Marita Wetzel DO [address] [place] [address] documented as of this encounter Visit Diagnoses Not on filedocumented in this encounter Additional Health Concerns Assessment Noted Time PHQ-9 Depression Total Score: 0 10/09/19 23 9:31 AM EDT documented as of this encounter Care Teams Account Auditor Relationship Specialty Start Date End Date Marita Wetzel DO [address] [place] [address] PCP - General Family Medicine 04/21/18 Carmen Becker PharmD [address] [place] [address] Pharmacist Internal Medicine 07/21/23 01/21/24 [facility] 05/22/24 documented as of this encounter
--- OUTSIDE RECORDS SUMMARY | 2024-07-27 11:38 | XMS_ITS | Encounter Summary ---
Author Organization [facility] Address [address] [place] [address] Phone Care Team Providers Care Project Reservoir Engineer Name Role Phone Marita Wetzel DO Primary Care Provider Unava ilable Encounter Details Date Type Department Care Team (Late st Contact Info) Description 09/11/2023 Documentation Only [facility] [address] [place] [phone] [address]ayo [address] [place] [phone] Social History Tobacco Use Types Packs/Day Years [...] Only [facility] [address] [place] [phone] documented as of this encounter Visit Diagnoses Not on filedocumented in this encounter Care Teams Project Reservoir Engineer Relationship Specialty Start Date End Date Marita Wetzel DO [address] [place] [address] PCP - General Family Medicine 11/14/22 documented as of this encounter
--- OUTSIDE RECORDS SUMMARY | 2024-07-27 11:38 | XMS_ITS | Encounter Summary ---
Author Organization [employer] Address [address] [place] [address] 7t [place] [address] Care Team Providers Care Account Service Associate Name Role Phone Marita Wetzel DO Primary Care Provider [phone] Carmen Becker PharmD Unavailable [phone] Encounter Details Date Type Department Care Team (Late st Contact Info) Description 10/14/2022 Abstract [facility] [address] [place] [address] Marita Wetzel DO [address] [place] [address] Social History Tobacco Use Types Packs/Day Years [...] Description 08/20/2024 10:00 AM EDT Office Visit [facility] [address] [place], [place] [phone] Marita Wetzel DO [address] [place], [place] [phone] documented as of this encounter Visit Diagnoses Not on filedocumented in this encounter Additional Health Concerns Assessment Noted Time PHQ-9 Depression Total Score: 0 10/09/19 23 9:31 AM EDT documented as of this encounter Care Teams Account Service Associate Relationship Specialty Start Date End Date Marita Wetzel DO [address] [place], [place] [phone] PCP - General Family Medicine 04/21/18 Carmen Becker PharmD [address] [place], [place] [phone] Pharmacist Internal Medicine 07/21/23 01/21/24 [facility] 05/22/24 documented as of this encounter
--- OUTSIDE RECORDS SUMMARY | 2024-07-27 11:38 | XMS_ITS | Encounter Summary ---
Author Organization [facility] Address [address] [place] [address] Phone Care Team Providers Care Manager Music Name Role Phone Marita Wetzel DO Primary Care Provider Unava ilable Encounter Details Date Type Department Care Team (Late Contact Info) Description 10/24/2023 Documentation Only [facility] [address] [place] [phone] [place] [address] [place] [phone] Social History Tobacco Use Types Packs/Day Years [...] [facility] [address] [place] [phone] documented as of this encounter Visit Diagnoses Not on filedocumented in this encounter Care Teams Manager Music Relationship Specialty Start Date End Date Marita Wetzel DO [address] [place] [address] PCP - General Family Medicine 11/14/22 documented as of this encounter
--- OUTSIDE RECORDS SUMMARY | 2024-07-27 11:38 | XMS_ITS | Encounter Summary ---
Author Organization [facility] Address [address] [place] [address] Phone Care Team Providers Care Grocery Store Bagger Name Role Phone Marita Wetzel DO Primary Care Provider Unava ilable Encounter Details Date Type Department Care Team (Late st Contact Info) Description 03/18/2023 Documentation Only [facility] [address] [place] [phone] Srinivas Agrawal MD [address] [place] [address] [place] [address] Social History Tobacco Use Types [...] Only [facility] - [facility] [address] [place] [address] [place] [phone] documented as of this encounter Visit Diagnoses Not on filedocumented in this encounter Care Teams Grocery Store Bagger Relationship Specialty Start Date End Date Marita Wetzel DO [address] [place] [address] PCP - General Family Medicine 11/14/22 documented as of this encounter
--- OUTSIDE RECORDS SUMMARY | 2024-07-27 11:38 | XMS_ITS | Encounter Summary ---
Author Organization [employer] Address [address] [facility] 7t [place] [address] Care Team Providers Care Make Up Girl Name Role Phone Marita Wetzel DO Primary Care Provider [phone] Carmen Becker PharmD Unavailable [phone] Encounter Details Date Type Department Care Team (Late st Contact Info) Description 04/29/2023 Telephone [facility] MEDICINE [address] [place] [address] Marita Wetzel DO [address] [place] [address] Social History Tobacco Use Types Packs/Day Years [...] Description 08/20/2024 10:00 AM EDT Office Visit [facility] [address] [place] [address] Marita Wetzel DO [address] [place] [address] documented as of this encounter Visit Diagnoses Not on filedocumented in this encounter Additional Health Concerns Assessment Noted Time PHQ-9 Depression Total Score: 0 10/09/19 23 9:31 AM EDT documented as of this encounter Care Teams Make Up Girl Relationship Specialty Start Date End Date Marita Wetzel DO [address] [place] [address] PCP - General Family Medicine 04/21/18 Carmen Becker PharmD [address] [place] [address] Pharmacist Internal Medicine 07/21/23 01/21/24 [facility] 05/22/24 documented as of this encounter
--- OUTSIDE RECORDS SUMMARY | 2024-07-27 11:38 | XMS_ITS | Encounter Summary ---
Author Organization [employer] Address [address] [place] [address] 7 [place] [address] Care Team Providers Care Word Processor Name Role Phone Marita Wetzel DO Primary Care Provider [phone] aCrmen Becker PharmD Unavailable [phone] Reason for Visit * Reason Onset Date Comments Prior Authorization 04/25/2023 [employer] Encounter Details Date Type Department Care Team (Late st Contact Info) Description 04/25/2023 Telephone [facility] MEDICINE [address] [place] [address] Marita Wetzel DO [address] [place] [address] Prior Authorization ([employer] Flex[employer]) Social History Tobacco [...] Description 08/20/2024 10:00 AM EDT Office Visit [facility] [address] [place] [address] Marita Wetzel DO [address] [place], [place] [phone] documented as of this encounter Visit Diagnoses Not on filedocumented in this encounter Additional Health Concerns Assessment Noted Time PHQ-9 Depression Total Score: 0 10/09/19 23 9:31 AM EDT documented as of this encounter Care Teams Word Processor Relationship Specialty Start Date End Date Marita Wetzel DO [address] [place] [address] PCP - General Family Medicine 04/21/18 Carmen Becker PharmD [address] [place] [address] Pharmacist Internal Medicine 07/21/23 01/21/24 [facility] 05/22/24 documented as of this encounter
--- OUTSIDE RECORDS SUMMARY | 2024-07-27 11:38 | XMS_ITS | Encounter Summary ---
Author Organization [facility] Address [address] [place] [address] Phone Care Team Providers Care Fiber Optic Technician Name Role Phone Marita Wetzel DO Primary Care Provider Unava ilable Encounter Details Date Type Department Care Team (Late st Contact Info) Description 06/14/2022 Documentation Only [facility] [address] [place] [phone] Candace Adam PA Social History Tobacco Use [...] Only [facility] [place] Vascular Access Center [address] [place] [phone] documented as of this encounter Visit Diagnoses Not on filedocumented in this encounter Care Teams Fiber Optic Technician Relationship Specialty Start Date End Date Marita Wetzel DO [address] [place] [address] PCP - General Family Medicine 11/14/22 documented as of this encounter
--- OUTSIDE RECORDS SUMMARY | 2024-07-27 11:38 | XMS_ITS | Encounter Summary ---
Author Organization [facility] Address [address] [place] [address] Phone Care Team Providers Care Software Validation Engineer Name Role Phone Marita Wetzel DO Primary Care Provider Unava ilable Reason for Visit * Reason Comments Med Refill Encounter Details Date Type Department Care Team (Late Contact Info) Description 12/06/2020 Refill [facility] [address] [place] [phone] Bernardo Doty MD [address] [place] [address] [place] [address] Social History Tobacco Use Types [...] Only [facility] [address] [place] [address] [place] [address] documented as of this encounter Visit Diagnoses Not on filedocumented in this encounter Care Teams Software Validation Engineer Relationship Specialty Start Date End Date Marita Wetzel DO [address] [place] [address] PCP - General Family Medicine 7/27/23 documented as of this encounter
--- OUTSIDE RECORDS SUMMARY | 2024-07-27 11:38 | XMS_ITS | Encounter Summary ---
Author Organization [employer] Address [address] [place] [address] 7 [place] [address] Care Team Providers Care Learning And Development Officer Name Role Phone Marita Wetzel DO Primary Care Provider [phone] Reason for Visit * Reason Onset Date Comments Med Refill 07/21/2024 Encounter Details Date Type Department Care Team (Late st Contact Info) Description 07/21/2024 Refill [facility] MEDICINE [address] [place] [address] Marita Wetzel DO [address] [place], [place] [phone] Social History Tobacco Use Types Packs/Day Years [...] encounter Miscellaneous Notes * Telephone Encounter - Italia De La Fuente LPN - 07/21/2024 1:36 PM EDT Please review predisone is not pended.Next appointment 5.2.25 * Telephone Encounter - Rosalva Nice - 07/21/2024 1:22 PM EDT TC from pt requesting medication refill. Medications needing refill : carvedilol (Coreg) 25 MG tablet predniSONE (Deltasone) 2.5 MG tablet To be sent to: [facility]/pharmacy #[id number] documented in this encounter Plan of Treatment Upcoming Encounters Date Type Department Care Team (Late st Contact Info) Description 08/20/2024 10:00 AM EDT Office Visit [facility] MEDICINE [address] [place] [address] Marita Wetzel DO [address] [place] [address] documented as of this encounter Goals Goal Patient Goal Type Associated Problems Recent Progress Patient-Stated? Author Hemoglobin A1c < 7 Result Component 5.9( 9:43 AM EDT) No Cramen Becker, PharmD Record your blood sugar as [...] documented as of this encounter Care Teams Learning And Development Officer Relationship Specialty Start Date End Date Marita Wetzel DO [address] [place] [address] PCP - General Family Medicine 04/21/18 [facility] 05/22/24 documented as of this encounter
--- OUTSIDE RECORDS SUMMARY | 2024-07-27 11:38 | XMS_ITS | Encounter Summary ---
Author Organization [facility] Address [address] [place] [address] Phone Care Team Providers Care Mechanical Handyman Name Role Phone Marita Wetzel DO Primary Care Provider Unava ilable Encounter Details Date Type Department Care Team (Late Contact Info) Description 09/12/2023 Documentation Only [facility] [address] [place] [phone] [place] [address] [place] [phone] Social History Tobacco Use Types Packs/Day Years [...] Care [facility] [address] [place] [phone] documented as of this encounter Visit Diagnoses Not on filedocumented in this encounter Care Teams Mechanical Handyman Relationship Specialty Start Date End Date Marita Wetzel DO [address] [place] [address] PCP - General Family Medicine 11/14/22 documented as of this encounter
--- OUTSIDE RECORDS SUMMARY | 2024-07-27 11:38 | XMS_ITS | Encounter Summary ---
Author Organization [facility] [place] [facility] Address [address] [place] [address] Phone Care Team Providers Care Beef Tagger Name Role Phone Marita Wetzel DO Primary Care Provider Unava ilable Encounter Details Date Type Department Care Team (Late st Contact Info) Description 04/02/2023 Documentation Only [facility] Dr Eufemia CONTRERAS [address] [place] [phone] Bernardo Doty MD [address] [place] [address] [place] [address] Social History Tobacco Use Types [...] And [facility] Access Center [address] [place] [address] [place] [address] documented as of this encounter Visit Diagnoses Not on filedocumented in this encounter Care Teams Beef Tagger Relationship Specialty Start Date End Date Marita Wetzel DO [address] [place] [address] PCP - General Family Medicine 7/27/23 documented as of this encounter
--- OUTSIDE RECORDS SUMMARY | 2024-07-27 11:38 | XMS_ITS ---
Author Organization [facility] Address [address] [place] [address] Care Team Providers Care Master In Chancery Name Role Phone Miryam Tyson Unavailable [phone] REASON FOR VISIT Cancel Encounters Encounter Location Date Provider Diagnosis [facility] [address] [place] [address] 06/17/2024 Miryam Tyson Plan Of Treatment No Information Progress Notes * Chris BEARDB:1960 (64 yo F)Acc No.[id number]:06/17/2024 Patient:?Alix BEARD :1960???Age:64 Y???Sex:Female Address:[address] [place] [address], [phone] * true * Date:? Generated for Binui danielle/Chloe/eTransmitting on:?07/27/2024 11:38 AM EDT
--- OUTSIDE RECORDS SUMMARY | 2024-07-27 11:38 | XMS_ITS | Encounter Summary ---
Author Organization [facility] Address [address] [place] [address] Phone Care Team Providers Care Vb Net Programmer Name Role Phone Marita Wetzel DO Primary Care Provider Unava ilable Encounter Details Date Type Department Care Team (Late st Contact Info) Description 03/18/2023 Documentation Only [facility] [address] [place] [address] Bernardo Doty MD [address] [place] [address] [place] [address] Social History Tobacco Use Types [...] Only [facility] [address] [place] [address] documented as of this encounter Visit Diagnoses Not on filedocumented in this encounter Care Teams Vb Net Programmer Relationship Specialty Start Date End Date Marita Wetzel DO [address] [place] [address] PCP - General Family Medicine 11/14/22 documented as of this encounter
--- OUTSIDE RECORDS SUMMARY | 2024-07-27 11:38 | XMS_ITS | Encounter Summary ---
Author Organization [employer] Address [address] [place] [address] 7 [place] [address] Care Team Providers Care Business Strategy Manager Name Role Phone Marita Wetzel DO Primary Care Provider + [phone] Reason for Visit * Reason Onset Date Comments Med Refill 06/25/2024 Encounter Details Date Type Department Care Team (Late st Contact Info) Description 06/25/2024 Telephone [facility] [address] [place] [address] Marita Wetzel DO [address] [place] [address] Med Refill Social History Tobacco Use Types Packs/Day Years [...] Telephone Encounter - Marita Butler LPN - 06/25/2024 10:50 AM EST Medication is prescribed by [facility]. * Telephone Encounter - Vivi Soto - 06/25/2024 10:38 AM EST TC from pt requesting medication refill. Medications needing refill : sucralfate (Carafate) 1 g tablet To be sent to: [facility]/pharmacy [address] [place] [address] *states it was prescribed before documented in this encounter Plan of Treatment Upcoming Encounters Date Type Department Care Team (Late st Contact Info) Description 08/20/2024 10:00 AM EDT Office Visit [facility] [address] [place] [address] Marita Wetzel DO [address] [place] [address] documented as of this encounter Goals Goal [...] documented as of this encounter Care Teams Business Strategy Manager Relationship Specialty Start Date End Date Marita Wetzel DO [address] [place] [address] PCP - General Family Medicine 04/21/18 [facility] 05/22/24 documented as of this encounter
--- OUTSIDE RECORDS SUMMARY | 2024-07-27 11:38 | XMS_ITS | Encounter Summary ---
Author Organization [facility] Address [address] [place] [address] Phone Care Team Providers Care Victim Witness Administrator Name Role Phone Marita Wetzel DO Primary Care Provider Unava ilable Encounter Details Date Type Department Care Team (Late st Contact Info) Description 06/25/2022 Documentation Only [facility] [address] [place] [phone] Pauline Aguayo [address] [place] [phone] Social History Tobacco Use Types Packs/Day Years [...] Only [facility] V[facility] Center [address] [place] [phone] documented as of this encounter Visit Diagnoses Not on filedocumented in this encounter Care Teams Victim Witness Administrator Relationship Specialty Start Date End Date Marita Wetzel DO [address] [place] [address] PCP - General Family Medicine 11/14/22 documented as of this encounter
--- OUTSIDE RECORDS SUMMARY | 2024-07-27 11:38 | XMS_ITS | Encounter Summary ---
Author Organization [facility] Address [address] [place] [address] Phone Care Team Providers Care Haulpak Driver Name Role Phone Marita Wetzel DO Primary Care Provider Unava ilable Encounter Details Date Type Department Care Team (Late st Contact Info) Description 10/17/2023 Documentation Only [facility] [address] [phone] [place] [address] [place] [phone] Social History Tobacco Use Types Packs/Day Years [...] Only [facility] - Vascular Access Center [address] [phone] documented as of this encounter Visit Diagnoses Not on filedocumented in this encounter Care Teams Haulpak Driver Relationship Specialty Start Date End Date Marita Wetzel DO [address] [place] [address] PCP - General Family Medicine 11/14/22 documented as of this encounter
--- OUTSIDE RECORDS SUMMARY | 2024-07-27 11:38 | XMS_ITS | Encounter Summary ---
Author Organization [facility] [place], Address [address] [place] [phone] Phone Care Team Providers Care Pediatric Immunologist Name Role Phone Marita Wetzel DO Primary Care Provider Unava ilable Reason for Visit * Reason Comments Med Refill Encounter Details Date Type Department Care Team (Late Contact Info) Description 06/30/2024 Refill [facility] [address] [place] [phone] Srinivas Agrawal MD [address] [place] [address] [place] [address] Social History Tobacco Use Types [...] Only [facility] [place], - Vascular Access Center [address] [place] [address] [place] [address] documented as of this encounter Procedures Procedure Name Priority Date/Time Associated Diagnosis Comments HEMATOLOGY Routine 06/30/2024 documented in this encounter Results * (ABNORMAL) HEMATOLOGY (06/30/2024) Hemoglobin 6.3(L) 12.0 - 16.0 g/dL [facility] Hemoglobin x 3 18.9(L) 36.0 - 48.0 % [facility] 06/30/2024 07/01/2024 10: 49 AM EDT Narrative [facility] - 07/01/2024 Unless otherwise specified, test(s) performed at: [facility], [address] [place] [address] OUTREACH LIAISON: Dwayne Fuentes M.D. For any questions, please call customer service at FREQUENCY:OTHER Resulting Agency Comment Specimen source: Blood Srinivas Agrawal MD LAB BLOOD ORDERABLES Final Result [facility] See order comments or contact performing lab Unknown, [place] documented in this encounter Visit Diagnoses Not on filedocumented in this encounter Care Teams Pediatric Immunologist Relationship Specialty Start Date End Date Marita Wetzel DO [address] [place] [address] PCP - General Family Medicine 11/14/22 documented as of this encounter
--- OUTSIDE RECORDS SUMMARY | 2024-07-27 11:38 | XMS_ITS | Encounter Summary ---
Author Organization [facility] Address [address] [place] [address] Phone Care Team Providers Care Manager Msw Name Role Phone Marita Wetzel DO Primary Care Provider Unava ilable Encounter Details Date Type Department Care Team (Late Contact Info) Description 08/11/2023 Documentation Only [facility] [address] [place] [phone] [place] [address] [place] [phone] Social History Tobacco Use Types Packs/Day Years [...] [facility] Vascular Access Center [address] [place] [phone] documented as of this encounter Visit Diagnoses Not on filedocumented in this encounter Care Teams Manager Msw Relationship Specialty Start Date End Date Marita Wetzel DO [address] [place] [address] PCP - General Family Medicine 11/14/22 documented as of this encounter
--- OUTSIDE RECORDS SUMMARY | 2024-07-27 11:38 | XMS_ITS | Encounter Summary ---
Author Organization [facility] Address [address] [place] [address] Phone Care Team Providers Care Investigations Director Name Role Phone Marita Wetzel DO Primary Care Provider Unava ilable Encounter Details Date Type Department Care Team (Late st Contact Info) Description 12/31/2022 Documentation Only [facility] [address] [place] [phone] Candace Adam PA Social History Tobacco Use [...] Only [facility] [place] Vascular Access Center [address] [place] [phone] documented as of this encounter Visit Diagnoses Not on filedocumented in this encounter Care Teams Investigations Director Relationship Specialty Start Date End Date Marita Wetzel DO [address] [place] [address] PCP - General Family Medicine 11/14/22 documented as of this encounter
--- OUTSIDE RECORDS SUMMARY | 2024-07-27 11:39 | XMS_ITS | Encounter Summary ---
Author Organization [facility] Address [address] [place] [address] Care Team Providers Care Lab Support Tech Name Role Phone Marita Wetzel DO Primary Care Provider [phone] Encounter Details Date Type Department Care Team (Late st Contact Info) Description 05/30/2024 Lab Requisition [facility] - Main Lab [address] [facility] [email or web address] [phone] Marily Gordillo MD [address] [place] [phone] Chronic embolism and thrombosis of unspecified vein; [...] unspecified documented in this encounter Care Teams Lab Support Tech Relationship Specialty Start Date End Date Marita Wetzel DO [address] [place], [place] PCP - General 01/09/23 documented as of this encounter
--- OUTSIDE RECORDS SUMMARY | 2024-07-27 11:39 | XMS_ITS | Encounter Summary ---
Author Organization [facility] Address [address] [place] [address] Phone Care Team Providers Care Wet Char Conveyor Tender Name Role Phone Marita Wetzel DO Primary Care Provider Unava ilable Encounter Details Date Type Department Care Team (Late st Contact Info) Description 09/26/2022 Documentation Only [facility] [address] [place] [phone] Candace Adam PA Social History Tobacco Use [...] Only [facility] [place], [facility] Vascular Access Center [address] [place] [phone] documented as of this encounter Visit Diagnoses Not on filedocumented in this encounter Care Teams Wet Char Conveyor Tender Relationship Specialty Start Date End Date Marita Wetzel DO [address] [place] [address] PCP - General Family Medicine 11/14/22 documented as of this encounter
--- OUTSIDE RECORDS SUMMARY | 2024-07-27 11:39 | XMS_ITS | Clinical Summary ---
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 33880 mL 12 02/10/20 Active predniSONE 5 MG tablet Take 1.5 tablets (7.5 mg total) by mouth 1 (one) time each day 30 tablet 11 02/11/20 24 025 Active Active Problems Problem Noted Date Diagnosed [...] Encounters Date Type Department Care Team Description 07/26/2024 Treatment [facility] [place], [address] [place] [address] Bernardo Doty MD End stage renal disease; Dependence on renal dialysis 07/21/2024 Orders Only [facility] [address] [place] [address] Srinivas Agrawal MD 07/21/2024 Treatment [facility] [place], [address] [place] [address] Bernardo Doty MD End stage renal disease; Dependence on renal dialysis 07/19/2024 Orders Only [facility] [address] [phone] Srinivas Agrawal MD 07/14/2024 Orders Only [facility] [address] [address] Srinivas Agrawal MD 07/12/2024 Orders Only [facility] [address] [address] Srinivas Agrawal MD 07/09/2024 Orders Only [facility] [address] [address] Srinivas Agrawal MD 07/07/2024 Orders Only [facility] [address] [address] Srinivas Agrawal MD 07/05/2024 Orders Only [facility] [address] [address] Srinivas Agrawal MD 07/05/2024 Treatment [facility] [place] [address] [place] [address] Bernardo Doty MD End stage renal disease; Dependence on renal dialysis 06/30/2024 Refill [facility] [address] [address] Srinivas Agrawal MD 06/28/2024 Treatment [facility] [place] [address] [place] [address] Bernardo Doty MD End stage renal disease; Dependence on renal dialysis 06/25/2024 Telephone [facility] [place] - [address] [place] [address] Hazel Zepeda VNA RN returned call 06/25/2024 Telephone [facility] [place], - Vascular Access Center [address] [place] [phone] Hazel Zepeda Abx via port 06/23/2024 Treatment [facility] [place], [address] [place] [phone] Bernardo Doty MD End stage renal disease; Dependence on renal dialysis 06/23/2024 Orders Only [facility] [address] [phone] Srinivas Agrawal MD 06/21/2024 Treatment [facility], [address] [place] [phone] Bernardo Doty MD End stage renal disease; Dependence on renal dialysis 06/18/2024 Refill [facility] [address] [phone] Srinivas Agrawal MD 06/10/2024 Telephone [facility] [place], - V[facility] Access Center [address] [place] [phone] Hazel Zepeda NS port flush- pt at [facility] 05/25/2024 Telephone [facility] [place] - [facility] Center [address] [place] [phone] Hazel Zepeda attempted to schedule port flush 05/24/2024 Orders Only [facility] [address] [phone] 341 Srinivas Agrawal MD 05/24/2024 Treatment [facility] [place], [address] [place] [address] Bernardo Doty MD 05/10/2024 Orders Only [facility] [address] [address] Srinivas Agrawal MD 05/10/2024 Treatment [facility] [place], [address] [place] [address] Bernardo Doty MD 2024 Orders Only [facility] [address] [address] Srinivas Agrawal MD 05/03/2024 Treatment [facility] [address] [place] [address] Candace Adam PA 04/30/2024 Orders Only [facility] [address] [address] Srinivas Agrawal MD 04/28/2024 Orders Only [facility] [address] [address] Srinivas Agrawal MD from Last 3 Months Immunizations Name Administration [...] Only [facility] Vascular Access Center [address] [place] [address] [place] [address] Health Maintenance Due Date Last Done Comments Breast Cancer Screening 1960 Diabetes: Ophthalmology Exam 06/13/2020 Diabetes: Pedal Pulse Checked 06/13/2020 Diabetes: Sensory Foot Exam 06/13/2020 Diabetes: Visual Foot Exam 06/13/2020 Hepatitis B Vaccine (2 of 5 - Risk Dialysis 4-dose series) 10/30/2021 02/09/2024, 10/02/2021, 10/02/2021, Additional history exists Colonoscopy (Post-Transplant Patient) 03/29/2022 Mammogram (Post-Transplant Patient) 03/29/2022 Pelvic Exam (Post-Transplant Patient) 03/29/2022 Diabetes: Hemoglobin A1C 10/07/2024 025, 04/23/2024, 04/20/2024, Additional history exists Influenza Vaccine (Season Ended) 2024 02/26/2023, 01/23/2022, 02/14/2021, Additional history exists Pneumococcal Vaccine: Pediat rics (0 to 5 Years) and At-Risk Patients (6 to 64 Years) (4 of 4 - PPSV23 or PCV20) 05/03/2026 05/03/2021, 01/05/2020, 08/13/2010 Procedures Procedure Name Priority Date/Time Associated Diagnosis Comments HEMATOLOGY Routine 07/21/2024 CHEMISTRY Routine 07/19/2024 HEMATOLOGY Routine 07/14/2024 CHEMISTRY Routine 07/12/2024 [facility] RESULTS Routine 07/09/2024 HD KINETICS Routine 07/09/2024 POST CHEMISTRY Routine 07/09/2024 CHEMISTRY Routine 07/09/2024 IMMUNO CHEMISTRY Routine 07/07/2024 CHEMISTRY Routine 07/07/2024 SPECIAL CHEMISTRY Routine 07/07/2024 CHEMISTRY Routine 07/07/2024 HEMATOLOGY Routine 07/07/2024 CHEMISTRY Routine 07/05/2024 HEMATOLOGY Routine 06/30/2024 CHEMISTRY Routine 06/23/2024 HEMATOLOGY Routine 06/23/2024 [facility]ET LAB RESULTS Routine 06/18/2024 HD KINETICS Routine 06/18/2024 POST CHEMISTRY Routine 06/18/2024 IMMUNO CHEMISTRY Routine 06/18/2024 CHEMISTRY Routine 06/18/2024 HEMATOLOGY Routine 06/18/2024 CHEMISTRY Routine 06/18/2024 HEMATOLOGY Routine 05/24/2024 CHEMISTRY Routine 05/24/2024 [facility]ET LAB RESULTS Routine 05/10/2024 HD KINETICS Routine 05/10/2024 POST CHEMISTRY Routine 05/10/2024 CHEMISTRY Routine 05/10/2024 CHEMISTRY Routine 2024 HEMATOLOGY Routine 2024 TRACE ELEMENTS Routine 04/30/2024 CHEMISTRY Routine 04/30/2024 HEMATOLOGY Routine 04/28/2024 from Last 3 Months Results * (ABNORMAL) HEMATOLOGY (07/21/2024) Only the most recent of9 resultswithin the time period is included. Hemoglobin 7.1(L) 12.0 - 16.0 g/dL [facility] Hemoglobin x 3 21.3(L) 36.0 - 48.0 % [facility] 07/21/2024 07/22/2024 10: 38 AM EDT Narrative [place] - 07/22/2024 Unless otherwise specified, test(s) performed at: [facility], [address] [place], [place] [id number] CASHIER PAYMENTS RECEIVED: Dwayne Fuentes M.D. For any questions, please call customer service at FREQUENCY:OTHER Resulting Agency Comment Specimen source: Blood Srinivas Agrawal MD LAB BLOOD ORDERABLES Final Result Performing Organization Address City/[facility] de Phone Number [facility] See order comments or contact performing lab Unknown, [place] * [facility] (07/19/2024) Only the most recent of13 resultswithin the time period is included. Potassium 4.4 3.5 - 5.1 mEq/L [facility] 07/19/2024 07/22/2024 12: 20 PM EDT Narrative [facility] - 07/22/2024 Unless otherwise specified, test(s) performed at: [facility], [address] [place] [address] CASHIER PAYMENTS RECEIVED: Dwayne Fuentes M.D. For any questions, please call customer service at FREQUENCY:OTHER Resulting Agency Comment Specimen source: Serum Srinivas Agrawal MD LAB BLOOD ORDERABLES Final Result Performing Organization Address [facility] de Phone Number [facility] See order comments or contact performing lab Unknown, [place] * HD KINETICS (07/09/2024) Only the most recent of3 resultswithin the time period is included. % Urea Reduction 70 65 - 80 % [facility] 07/09/2024 07/13/2024 9:0 9 AM EDT Narrative Resulting Agency Comment Specimen source: Plasma Srinivas Agrawal MD LAB BLOOD ORDERABLES Final Result Performing Organization Address [facility] de Phone Number [facility] See order comments or contact performing lab Unknown, [place] * POST CHEMISTRY (07/09/2024) Only the most recent of3 resultswithin the time period is included. BUN Post Dialysis 9 6 - 19 mg/dL [facility] 07/09/2024 07/13/2024 9:0 9 AM EDT Narrative [facility] - 07/13/2024 Unless otherwise specified, test(s) performed at: [facility], [address] [place] [address] CASHIER PAYMENTS RECEIVED: Dwayne Fuentes M.D. For any questions, please call customer service at FREQUENCY:OTHER Resulting Agency Comment Specimen source: Plasma Result [facility] Srinivas Agrawal MD LAB BLOOD ORDERABLES Final Result Performing Organization Address City/[facility]/ZIP Co de Phone Number [facility] See order comments or contact performing lab Unknown, [place] * [facility] Lab Results (07/09/2024) Only the most recent of3 resultswithin the time period is included. Pathologist [facility] spKt/V (Daugirdas II) 1.46 [facility] PCR 30.86 [facility] spKt/V Gotch 1.46 [facility] nPCR_HD 0.65 [facility] eKdrt/V 1.24 [facility] eKt/V Gotch 1.24 [facility] WSTDKT/V 2.4 [facility] eKt/V (Tattersall) 1.24 [facility] eNPCR 0.59 [facility] 07/09/2024 07/09/2024 Result [facility] Ordering Provider LAB BLOOD ORDERABLES Final Result Performing Organization Address City/[facility]/ZIP Co de Phone Number [facility] Contact Performing lab Unknown, [place] * SPECIAL CHEMISTRY (07/07/2024) [facility] Hemoglobin A1C 5.7 4.8 - 5.9 % [facility] 07/07/2024 07/10/2024 11: 15 AM EDT Narrative [facility] - 07/10/2024 Unless otherwise specified, test(s) performed at: [facility], [address] [place], [place] [id number] CASHIER PAYMENTS RECEIVED: Dwayne Fuentes M.D. For any questions, please call customer service at FREQUENCY:MONTHLY Resulting Agency Comment Specimen source: Blood Result [facility] Srinivas Agrawal MD LAB BLOOD BANK TEST ORDERA BLES Final Result [facility] See order comments or contact performing lab Unknown, [place] * IMMUNO CHEMISTRY (07/07/2024) Only the most recent of2 resultswithin the time period is included. Hep B Surface Ag Negative Negative [facility] 07/07/2024 07/10/2024 11: 24 AM EDT Narrative Resulting Agency Comment Specimen source: Serum Srinivas Agrawal MD LAB BLOOD ORDERABLES Final Result Performing Organization Address [facility]/ZIP Co de Phone Number [facility] See order comments or contact performing lab Unknown, [place] * (ABNORMAL) TRACE ELEMENTS (04/30/2024) Aluminum 31(H) 0 - 10 mcg/L [facility] Comment: This test was developed and its performance characteristics determined by [facility]. It has not been cleared or approved [...] 05/04/2024 Unless otherwise specified, test(s) performed at: [facility], [address] [place] [id number] CASHIER PAYMENTS RECEIVED: Dwayne Fuentes M.D. For any questions, please call customer service at FREQUENCY:OTHER Resulting Agency Comment Specimen source: Serum Srinivas Agrawal MD LAB BLOOD ORDERABLES Final Result Performing Organization Address City/[facility]/ZIP Co de Phone Number [facility] See order comments or contact performing lab Unknown, [place] from Last 3 Months Insurance MEDICARE MEDICARE [facility] Care Teams Kitchen Clerk Relationship Specialty Start Date End Date Marita Wetzel DO [address] [place] [address] PCP - General Family Medicine 11/14/22
--- OUTSIDE RECORDS SUMMARY | 2024-07-27 11:39 | XMS_ITS | Encounter Summary ---
Author Organization [facility] Address [address] [place] [address] Care Team Providers Care Cover Seamer Name Role Phone Marita Wetzel Primary Care Provider +1- [phone] Encounter Details Date Type Department Care Team (Late st Contact Info) Description 04/30/2024 Lab Requisition [facility] - Main Lab [address] [place] [phone] Marily Gordillo MD [address] [place] [phone] Anemia, unspecified; Chronic embolism and thrombosis of [...] LAB CHEMISTRY METHOD 05/03/2024 10:59 AM EST [facility] Blood Venous blood specimen / Unknown Venipuncture / Unknown 05/03/2024 6:09 AM EST 05/03/2024 9:29 AM EST Marily Gordillo MD LAB BLOOD ORDERABLES Final Resul t Performing Organization Address City/[facility]/ZIP Co de Phone Number [facility] [address] [place] [address], [place] [phone] * (ABNORMAL) Ferritin (05/03/2024 6:09 AM EST) Ferritin 2,737(H) 8 - 252 ng/mL LAB CHEMISTRY METHOD 05/03/2024 10:59 AM EST [facility] Blood Venous blood specimen / Unknown Venipuncture / Unknown 05/03/2024 6:09 AM EST 05/03/2024 9:29 AM EST Marily Gordillo MD LAB BLOOD ORDERABLES Final Resul t Performing Organization Address [facility]/ZIP Co de Phone Number [facility] [address] [place] [address], [place] [phone] documented in this encounter Visit Diagnoses Diagnosis Anemia, unspecified Chronic embolism and thrombosis of unspecified vein Acute kidney failure, unspecified (CMS/HCC) Acute kidney failure, unspecified documented in this encounter Care Teams Cover Seamer Relationship Specialty Start Date End Date Marita Wetzel DO [address] [place] [address] PCP - General 01/09/23 documented as of this encounter
--- OUTSIDE RECORDS SUMMARY | 2024-07-27 11:39 | XMS_ITS | Encounter Summary ---
Author Organization [facility], Address [address] [place] [address] Phone Care Team Providers Care Slab Installer Name Role Phone Marita Wetzel DO Primary Care Provider Unava ilable Encounter Details Date Type Department Care Team (Late st Contact Info) Description 07/21/2024 Treatment [facility], [address] [place] [phone] Jeanne Bailey MD [facility] [address] [place] [address] End stage renal disease; Dependence on renal [...] Dialysis Note - Jeanne Bailey MD - 07/21/2024 12:00 AM EDT Patient: Alix Sharp : 1960 [facility] Note Type: Dialysis Rounds-Comp Service Date: 07/21/2024 This patient was personally seen for a complete visit as part of routine monthly dialysis care for end stage renal disease. Attending Lotus Notes Administrator: JEANNE BAILEY Dialysis Location: [facility] Schedule: Shift: 3 OVERVIEW COMMENTS: [...] Run even or positive. HOME MEDICATIONS Current [facility] Outpatient Medications amlodipine 10 mg tablet [...] capsule by mouth once a day. Current [facility] Allergies Allergen: codeine Reaction: Unknown Allergen: oxycodone Reaction: Unknown DIALYSIS PRESCRIPTION Treatment Data Treatment Date: 07/21/2024 started at: 11:24 AM Dialysate / Machine Temp (prescribed): 36.0*C Dialysate / Machine Temp (actual): 36.0*C BFR (prescribed): 350 BFR (average delivered): 350 DFR (prescribed): Manual 500 DFR (average delivered): 500 Prescribed Time: 03:15 Actual Time: 03:15 EDW (kg): 56.5 Dialyzer: 160NRe Optiflux Dialysate: 2.0 K, 2.50 Ca, 1.0 Mg, 100 Dextrose ([id number]) Sodium: 137 Bicarb: 35 Pre Dialysis Vitals Pre BP Sit: 164/71 Pre Wt (kg): 57.7 EDW Deviation (kg): 1.2 Temp: 98.2*F Post Dialysis Vitals Post BP Sit: 152/81 Post Wt (kg): 56.1 TREATMENT MEDICATIONS ORDERS Mircera 225 mcg IVP Every 2 weeks During Dialysis 07/14/2024 - 07/13/2025 BP AND FLUID ASSESSMENT Post BP Sit 152/81 - 07/21/2024 140/53 - 07/19/2024 159/80 - 07/16/2024 Post Wt (kg) 56.1 - 07/21/2024 56.8 - 07/19/2024 57.5 - 07/16/2024 EDW (kg) 56.5 - 07/21/2024 56.5 - 07/19/2024 56.5 - 07/16/2024 Deviation (kg) -0.4 - 07/21/2024 0.3 - 07/19/2024 1.0 - 07/16/2024 ADEQUACY ASSESSMENT spKt/V (Daugirdas II) 1.46 (07/09/24) 1.50 (06/18/24) 1.39 (05/10/24) eKdrt/V 1.24 (07/09/24) 1.12 (05/10/24) % Urea Reduction 70 (07/09/24) 70 (06/18/24) 69 (05/10/24) BUN 30 (07/09/24) 44 (06/18/24) 49 (05/10/24) BUN Post Dialysis 9 (07/09/24) 13 (06/18/24) 15 (05/10/24) Creatinine 3.05 (07/07/24) 3.39 (06/18/24) 3.62 (04/23/24) Bicarbonate (CO2) 21 (07/07/24) 23 (06/18/24) 27 (04/30/24) Sodium 137 (07/07/24) 137 (06/18/24) 142 (04/23/24) Missed Treatments 0 - Last 30 days 10 - Last 60 days Most recently missed on 06/16/2024 ACCESS ASSESSMENT AVGraft Synthetic - Standard (PTFE) Left Upper Arm Active (In Use) - 04/23/2024 Placed - 01/22/2024 ANEMIA ASSESSMENT Hemoglobin 7.7 (07/14/24) 8.4 (07/07/24) 6.3 (06/30/24) Iron Saturation (TSat) 46 (07/07/24) 53 (06/18/24) 28 (04/23/24) Ferritin 1,427 (07/07/24) 1,648 (06/18/24) 3,177 (04/23/24) Iron 83 (07/07/24) 99 (06/18/24) 31 (04/23/24) TIBC 182 (07/07/24) 188 (06/18/24) 111 (04/23/24) Reticulocyte Hemoglobin 34.6 (07/07/24) 26.0 (04/23/24) MCV 100 (07/07/24) 94 (04/23/24) 94 (04/20/24) Platelets 193 (04/20/24) 266 (02/10/24) 365 (02/03/24) BMM ASSESSMENT Calcium 8.8 07/07/24 8.5 06/18/24 8.6 04/23/24 Corrected Calcium 9.6 07/07/24 9.4 06/18/24 9.6 04/23/24 Phosphorus 2.5 07/07/24 3.2 06/18/24 2.5 04/23/24 Calcium Phosphorus Product 22 07/07/24 27 06/18/24 22 04/23/24 PTH 221 07/07/24 145 06/18/24 63 04/23/24 Vitamin D, 25-OH, Total 48.2 04/23/24 19.2 10/06/23 Magnesium 1.7 07/07/24 1.9 06/18/24 1.3 04/23/24 Alkaline Phosphatase 105 07/07/24 54 04/23/24 Aluminum 31 04/30/24 97 04/23/24 NUTRITION ASSESSMENT Albumin 3.0 07/07/24 2.9 06/18/24 2.7 04/23/24 Potassium 4.2 07/12/24 3.5 07/07/24 3.7 07/05/24 eNPCR 0.59 07/09/24 0.67 05/10/24 Hemoglobin A1C 5.7 07/07/24 5.8 04/23/24 6.1 04/20/24 ADDITIONAL LABS INR 1.0 (10/06/23) 1.0 (08/05/23) WBC 3.84 (07/07/24) 9.46 (04/23/24) 11.3 (04/20/24) Cholesterol 115 (10/06/23) HDL 31 (10/06/23) LDL Calculated 57 (10/06/23) Triglycerides 157 (10/06/23) Hepatitis B Surface Ab 632 (04/23/24) 1,682.0 (04/20/24) 1,959.0 (02/10/24) COMMENTS: 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 ADDITIONAL COMMENT COMMENTS: 07/21/24 Patient is stable Medications reviewed Physical Exam [...] reviewed. Dietary adjustments made in conjunction with gasoline dragline operator. 7.Transplant: not a candidate. 06/21/24 Patient is stable, recently cd from [facility] after episode of pneumonia Medications reviewed [...] reviewed. Dietary adjustments made in conjunction with gasoline dragline operator. Transplant: Not a candidate. 05/24/24 Patient is [...] reviewed. Dietary adjustments made in conjunction with gasoline dragline operator. 7.Transplant: Not a candidate. decreasing tacrolimus doing [...] reviewed. Dietary adjustments made in conjunction with gasoline dragline operator. Transplant: The patient will be re-evaluated for a kidney transplant. Signed by: JEANNE BAILEY MD on 07/21/2024 at 07:00:59 PM Transcribed by: JEANNE BAILEY MD on 07/21/2024 at 07:00:59 PM documented in this encounter Plan of Treatment Upcoming Encounters Date Type Department Care Team (Late st Contact Info) Description 11/03/2024 12:30 PM EDT Scheduled Only [facility], - [facility] Center [address] [place] [address] documented as of this encounter Visit Diagnoses Diagnosis End stage renal disease Dependence on renal dialysis documented in this encounter Care Teams Slab Installer Relationship Specialty Start Date End Date Marita Wetzel DO [address] [place] [address] PCP - General Family Medicine 11/14/22 documented as of this encounter
--- OUTSIDE RECORDS SUMMARY | 2024-07-27 11:39 | XMS_ITS | Encounter Summary ---
Author Organization [facility] Address [address] [place] [address] Phone Care Team Providers Care Shovel Oiler Name Role Phone Marita Wetzel DO Primary Care Provider Unava ilable Encounter Details Date Type Department Care Team (Late st Contact Info) Description 12/09/2022 Documentation Only [facility] [address] [place] [phone] Candace Adam PA Social History Tobacco Use [...] Only [facility] [place] Vascular Access Center [address] [place] [phone] documented as of this encounter Visit Diagnoses Not on filedocumented in this encounter Care Teams Shovel Oiler Relationship Specialty Start Date End Date Marita Wetzel DO [address] [place] [address] PCP - General Family Medicine 11/14/22 documented as of this encounter
--- OUTSIDE RECORDS SUMMARY | 2024-07-27 11:39 | XMS_ITS | Encounter Summary ---
Author Organization [facility] [address] Address [address] [place] [address] Care Team Providers Care Wet Process Miller Head Name Role Phone Marita Wetzel DO Primary Care Provider +1- [phone] Encounter Details Date Type Department Care Team (Late st Contact Info) Description 05/21/[address] [facility] - Main Lab [address] [facility] [phone] Marily Gordillo MD [address] [place] [phone] Chronic embolism and thrombosis of unspecified vein; [...] unspecified documented in this encounter Care Teams Wet Process Miller Head Relationship Specialty Start Date End Date Marita Wetzel DO [address] [place], [place] PCP - General 01/09/23 documented as of this encounter
--- OUTSIDE RECORDS SUMMARY | 2024-07-27 11:39 | XMS_ITS | Encounter Summary ---
Author Organization [facility] Address [address] [place] [address] Phone Care Team Providers Care Corn Detasseler Name Role Phone Marita Wetzel DO Primary Care Provider Unava ilable Encounter Details Date Type Department Care Team (Late st Contact Info) Description 01/21/2024 Documentation Only [facility] [address] [place] [phone] Pauline Aguayo [address] [place] [phone] Social History Tobacco Use Types Packs/Day Years [...] [facility] V[facility] Access Center [address] [place] [phone] documented as of this encounter Visit Diagnoses Not on filedocumented in this encounter Care Teams Corn Detasseler Relationship Specialty Start Date End Date Marita Wetzel DO [address] [place] [address] PCP - General Family Medicine 11/14/22 documented as of this encounter
--- OUTSIDE RECORDS SUMMARY | 2024-07-27 11:39 | XMS_ITS | Encounter Summary ---
Author Organization [facility] Address [address] [place] [address] Care Team Providers Care Pilot Submersible Name Role Phone Marita Wetzel Primary Care Provider +1- [phone] Encounter Details Date Type Department Care Team (Late st Contact Info) Description 05/07/2024 Lab Requisition [facility] - Main Lab [address] [place] [phone] Marily Gordillo MD [address] [place] [address] Chronic embolism and thrombosis of [...] CHEMISTRY METHOD 05/10/2024 11:45 AM EST [facility] Potassium 3.8 3.5 - 5.5 mmol/L LAB CHEMISTRY METHOD 05/10/2024 11:45 AM [facility] Chloride 96 96 - 110 mmol/L LAB CHEMISTRY METHOD 05/10/2024 11:45 AM [facility] CO2 28 21 - 32 mmol/L LAB CHEMISTRY METHOD 05/10/2024 11:45 AM [facility] Anion Gap 11 3 - 11 LAB CHEMISTRY METHOD 05/10/2024 11:45 AM [facility] Glucose 215(H) 70 - 100 mg/dL LAB CHEMISTRY METHOD 05/10/2024 11:45 AM [facility] BUN 45(H) 5 - 25 mg/dL LAB CHEMISTRY METHOD 05/10/2024 11:45 AM [facility] Creatinine 3.47(H) 0.50 - 1.10 mg/dL LAB CHEMISTRY METHOD 05/10/2024 11:45 AM [facility] eGFR 14(L) >=60 mL/min/1. 73m2 LAB CHEMISTRY METHOD 05/10/2024 11:45 AM [facility] Comment:Calculation based on the??Chronic Kidney Disease Epidemiology Collaboration (CKD-EPI) equation refit??without adjustment for race. BUN/Creatinine Ratio 13.0 LAB CHEMISTRY METHOD 05/10/2024 11:45 AM [facility] Albumin 1.7(L) 3.2 - 5.0 g/dL LAB CHEMISTRY METHOD 05/10/2024 11:45 AM [facility] Calcium 8.4(L) 8.5 - 10.5 mg/dL LAB CHEMISTRY METHOD 05/10/2024 11:45 AM [facility] Phosphorus 2.1(L) 2.5 - 4.5 mg/dL LAB CHEMISTRY METHOD 05/10/2024 11:45 AM [facility] Blood Venous blood specimen / Unknown Venipuncture / Unknown 05/10/2024 5:50 AM EST 05/10/2024 9:58 AM EST us Marily Gordillo MD LAB BLOOD ORDERABLES Final Resul t ABHILASH BENTLEY MD ([facility]) [facility] [address] [place] [address], * Tacrolimus level (05/10/2024 5:50 AM EST) [...] developed and the performance characteristics determined by [facility]. This confirmation testing has not been cleared or approved by the FDA. The laboratory is regulated under CLIA as qualified to perform high-complexity testing. This test is used for patient testing purposes. It should not be regarded as investigational or for research. Test performed at [facility], [address], [place], [place] [address] ? [phone] Ashtyn Leigh MD, PhD - Manager Revenue Blood Venous blood specimen / Unknown Venipuncture / Unknown 05/10/2024 5:50 AM EST 05/10/2024 9:58 AM EST us Marily Gordillo MD LAB BLOOD ORDERABLES Final Resul t [facility] [address] [place] [address] documented in this encounter Visit Diagnoses Diagnosis Chronic embolism and thrombosis of unspecified vein Acute kidney failure, unspecified (CMS/HCC) Acute kidney failure, unspecified documented in this encounter Care Teams Pilot Submersible Relationship Specialty Start Date End Date Marita Wetzel DO [address] [place] [address] PCP - General 01/09/23 documented as of this encounter
--- OUTSIDE RECORDS SUMMARY | 2024-07-27 11:39 | XMS_ITS | Encounter Summary ---
Author Organization [facility] Address [address] [place] [address] Phone Care Team Providers Care Alberene Stone Setter Name Role Phone Marita Wetzel DO Primary Care Provider Unava ilable Encounter Details Date Type Department Care Team (Late Contact Info) Description 08/28/2023 Documentation Only [facility] [address] [phone] [place] [address] [place] [phone] Social History Tobacco Use Types Packs/Day Years [...] Only [facility] V[facility] Access Center [address] [phone] documented as of this encounter Visit Diagnoses Not on filedocumented in this encounter Care Teams Alberene Stone Setter Relationship Specialty Start Date End Date Marita Wetzel DO [address] [place] [address] PCP - General Family Medicine 11/14/22 documented as of this encounter
--- OUTSIDE RECORDS SUMMARY | 2024-07-27 11:39 | XMS_ITS | Encounter Summary ---
Author Organization [facility] Address [address] [place] [address] Care Team Providers Care Gse Mechanic Name Role Phone Marita Wetzel Primary Care Provider +1- [phone] Encounter Details Date Type Department Care Team (Late st Contact Info) Description 04/20/2024 Lab Requisition [facility] - Main Lab [address] [place] [phone] Marily Gordillo MD [address] [place] [address] Chronic kidney disease, unspecified; Anemia, [...] mmol/L LAB CHEMISTRY METHOD 04/22/2024 11:50 AM [facility] Chloride 112(H) 96 - 110 mmol/L LAB CHEMISTRY METHOD 04/22/2024 11:50 AM [facility] CO2 23 21 - 32 mmol/L LAB CHEMISTRY METHOD 04/22/2024 11:50 AM [facility] Anion Gap 8 3 - 11 LAB CHEMISTRY METHOD 04/22/2024 11:50 AM [facility] Glucose 135(H) 70 - 100 mg/dL LAB CHEMISTRY METHOD 04/22/2024 11:50 AM [facility] BUN 43(H) 5 - 25 mg/dL LAB CHEMISTRY METHOD 04/22/2024 11:50 AM [facility] Creatinine 3.79(H) 0.50 - 1.10 mg/dL LAB CHEMISTRY METHOD 04/22/2024 11:50 AM [facility] eGFR 13(L) >=60 mL/min/1. 73m2 LAB CHEMISTRY METHOD 04/22/2024 11:50 AM [facility] Comment:Calculation based on the??Chronic Kidney Disease Epidemiology Collaboration (CKD-EPI) equation refit??without adjustment for race. BUN/Creatinine Ratio 11.3 LAB CHEMISTRY METHOD 04/22/2024 11:50 AM [facility] Calcium 8.6 8.5 - 10.5 mg/dL LAB CHEMISTRY METHOD 04/22/2024 11:50 AM [facility] AST (SGOT) 9(L) 10 - 42 unit/L LAB CHEMISTRY METHOD 04/22/2024 11:50 AM [facility] ALT (SGPT) 9(L) 10 - 60 unit/L LAB CHEMISTRY METHOD 04/22/2024 11:50 AM [facility] Alkaline Phosphatase 59 42 - 121 unit/L LAB CHEMISTRY METHOD 04/22/2024 11:50 AM [facility] Total Protein 5.8(L) 6.0 - 8.0 g/dL LAB CHEMISTRY METHOD 04/22/2024 11:50 AM [facility] Albumin 2.0(L) 3.2 - 5.0 g/dL LAB CHEMISTRY METHOD 04/22/2024 11:50 AM [facility] Total Bilirubin 0.3 0.0 - 1.4 mg/dL LAB CHEMISTRY METHOD 04/22/2024 11:50 AM [facility] Blood Venous blood specimen / Unknown Venipuncture / Unknown 04/22/2024 7:09 AM EST 04/22/2024 9:42 AM EST Marily Gordillo MD LAB BLOOD ORDERABLES Final Resul t [facility] [address] [place] [address], * (ABNORMAL) Complete blood count (04/22/2024 7:09 AM EST) Pathologist [facility] WBC 8.2 4.8 - 10.8 K/mcL LAB HEMETOLOGY METHOD 04/22/2024 10:44 AM [facility] RBC 2.80(L) 3.80 - 4.80 M/mcL LAB HEMETOLOGY METHOD 04/22/2024 10:44 AM [facility] Hemoglobin 7.8(L) 11.5 - 16.0 g/dL LAB HEMETOLOGY METHOD 04/22/2024 10:44 AM [facility] Hematocrit 27.7(L) 35.0 - 47.0 % LAB HEMETOLOGY METHOD 04/22/2024 10:44 AM [facility] MCV 97.5 79.0 - 98.0 FL LAB HEMETOLOGY METHOD 04/22/2024 10:44 AM [facility] MCH 27.5 27.0 - 32.0 pcg LAB HEMETOLOGY METHOD 04/22/2024 10:44 AM EST [facility] MCHC 28.2(L) 32.0 - 37.0 g/dL LAB HEMETOLOGY METHOD 04/22/2024 10:44 AM [facility] RDW 16.5(H) 11.0 - 15.0 % LAB HEMETOLOGY METHOD 04/22/2024 10:44 AM [facility] Platelets 189 130 - 400 K/mcL LAB HEMETOLOGY METHOD 04/22/2024 10:44 AM [facility] MPV 10.7 7.0 - 11.0 FL LAB HEMETOLOGY METHOD 04/22/2024 10:44 AM [facility] NRBC 0.0 <1.0 % LAB HEMETOLOGY METHOD 04/22/2024 10:44 AM [facility] NRBC Absolute 0.00 <0.10 K/mcL LAB HEMETOLOGY METHOD 04/22/2024 10:44 AM [facility] Blood Venous blood specimen / Unknown Venipuncture / Unknown 04/22/2024 7:09 AM EST 04/22/2024 9:43 AM EST us Marily Gordillo MD LAB BLOOD ORDERABLES Final Resul t [facility] [address] [place] [address], documented in this encounter Visit Diagnoses Diagnosis Chronic kidney disease, unspecified Anemia, unspecified documented in this encounter Care Teams Gse Mechanic Relationship Specialty Start Date End Date Marita Wetzel DO [address] [place] [address] PCP - General 01/09/23 documented as of this encounter
--- OUTSIDE RECORDS SUMMARY | 2024-07-27 11:39 | XMS_ITS | Encounter Summary ---
Author Organization [facility] Address [address] [place] [address] Care Team Providers Care Loader Technician Name Role Phone Marita Wetzel DO Primary Care Provider +1- [phone] Encounter Details Date Type Department Care Team (Late st Contact Info) Description 05/15/2024 Lab Requisition [facility] - Main Lab [address] [facility] [place] [phone] Marily Gordillo MD [address] [place] [phone] Chronic embolism and thrombosis of unspecified vein; [...] unspecified documented in this encounter Care Teams Loader Technician Relationship Specialty Start Date End Date Marita Wetzel DO [address] [place], [place] PCP - General 01/09/23 documented as of this encounter
--- OUTSIDE RECORDS SUMMARY | 2024-07-27 11:39 | XMS_ITS | Encounter Summary ---
Author Organization [facility] Address [address] [place] [address] Care Team Providers Care Prepress Technician Name Role Phone Mary JaneMarita yousif Primary Care Provider +1- [phone] Encounter Details Date Type Department Care Team (Late st Contact Info) Description 04/17/2024 Lab Requisition [facility] - Main Lab 299 [facility] [place] [address] Catalina Burr MD [address] [place] [address] End stage renal disease (CMS/HCC); Anemia, unspecified [...] developed and the performance characteristics determined by [facility]. This confirmation testing has not been cleared or approved by the FDA. The laboratory is regulated under CLIA as qualified to perform high-complexity testing. This test is used for patient testing purposes. It should not be regarded as investigational or for research. Test performed at [facility], [address] , [place], [place] ??[address] ? [phone] Ashtyn Leigh MD, PhD - Asset Card Clerk Blood Venous blood specimen / Unknown Venipuncture / Unknown 04/17/2024 5:33 AM EST 04/17/2024 9:33 AM EST Catalina Burr MD LAB BLOOD ORDERABLES Final Resul t [facility] [address] [place] [address] * (ABNORMAL) Reticulocyte count (04/17/2024 5:33 AM EST) Retic Ct Abs 0.050 0.030 - 0.090 M/mcL LAB HEMETOLOGY METHOD 04/17/2024 10:42 AM EST [facility] Retic Ct Pct 1.8(H) 0.7 - 1.7 % LAB HEMETOLOGY METHOD 04/17/2024 10:42 AM [facility] Immature Retic Fract 24.7(H) 2.3 - 15.9 % LAB HEMETOLOGY METHOD 04/17/2024 10:42 AM EST [facility] Reticulocyte Hemoglobin 28.3(L) >29.0 pcg LAB HEMETOLOGY METHOD 04/17/2024 10:42 AM [facility] Blood Venous blood specimen / Unknown Venipuncture / Unknown 04/17/2024 5:33 AM EST 04/17/2024 9:33 AM EST us Catalina Burr MD LAB BLOOD ORDERABLES Final Resul t [facility] [address] [place] [address], [place] [phone] * (ABNORMAL) Comprehensive metabolic panel (04/17/2024 5:33 AM EST) Sodium 146(H) 133 - 145 mmol/L LAB CHEMISTRY METHOD 04/17/2024 11:02 AM EST [facility] Potassium 3.4(L) 3.5 - 5.5 mmol/L LAB CHEMISTRY METHOD 04/17/2024 11:02 AM [facility] Chloride 116(H) 96 - 110 mmol/L LAB CHEMISTRY METHOD 04/17/2024 11:02 AM [facility] CO2 21 21 - 32 mmol/L LAB CHEMISTRY METHOD 04/17/2024 11:02 AM [facility] Anion Gap 9 3 - 11 LAB CHEMISTRY METHOD 04/17/2024 11:02 AM [facility] Glucose 61(L) 70 - 100 mg/dL LAB CHEMISTRY METHOD 04/17/2024 11:02 AM [facility] BUN 48(H) 5 - 25 mg/dL LAB CHEMISTRY METHOD 04/17/2024 11:02 AM [facility] Creatinine 3.71(H) 0.50 - 1.10 mg/dL LAB CHEMISTRY METHOD 04/17/2024 11:02 AM [facility] eGFR 13(L) >=60 mL/min/1. 73m2 LAB CHEMISTRY METHOD 04/17/2024 11:02 AM [facility] Comment:Calculation based on the??Chronic Kidney Disease Epidemiology Collaboration (CKD-EPI) equation refit??without adjustment for race. BUN/Creatinine Ratio 12.9 LAB CHEMISTRY METHOD 04/17/2024 11:02 AM [facility] Calcium 8.7 8.5 - 10.5 mg/dL LAB CHEMISTRY METHOD 04/17/2024 11:02 AM [facility] AST (SGOT) 8(L) 10 - 42 unit/L LAB CHEMISTRY METHOD 04/17/2024 11:02 AM [facility] ALT (SGPT) 9(L) 10 - 60 unit/L LAB CHEMISTRY METHOD 04/17/2024 11:02 AM [facility] Alkaline Phosphatase 61 42 - 121 unit/L LAB CHEMISTRY METHOD 04/17/2024 11:02 AM [facility] Total Protein 5.6(L) 6.0 - 8.0 g/dL LAB CHEMISTRY METHOD 04/17/2024 11:02 AM [facility] Albumin 2.0(L) 3.2 - 5.0 g/dL LAB CHEMISTRY METHOD 04/17/2024 11:02 AM [facility] Total Bilirubin 0.5 0.0 - 1.4 mg/dL LAB CHEMISTRY METHOD 04/17/2024 11:02 AM [facility] Blood Venous blood specimen / Unknown Venipuncture / Unknown 04/17/2024 5:33 AM EST 04/17/2024 9:33 AM EST Catalina Burr MD LAB BLOOD ORDERABLES Final Resul t [facility] [address] [place] [address], * (ABNORMAL) Complete blood count (04/17/2024 5:33 AM EST) WBC 9.3 4.8 - 10.8 K/mcL LAB HEMETOLOGY METHOD 04/17/2024 10:42 AM [facility] RBC 3.10(L) 3.80 - 4.80 M/mcL LAB HEMETOLOGY METHOD 04/17/2024 10:42 AM [facility] Hemoglobin 8.3(L) 11.5 - 16.0 g/dL LAB HEMETOLOGY METHOD 04/17/2024 10:42 AM [facility] Hematocrit 30.3(L) 35.0 - 47.0 % LAB HEMETOLOGY METHOD 04/17/2024 10:42 AM [facility] MCV 98.1(H) 79.0 - 98.0 FL LAB HEMETOLOGY METHOD 04/17/2024 10:42 AM [facility] MCH 26.9(L) 27.0 - 32.0 pcg LAB HEMETOLOGY METHOD 04/17/2024 10:42 AM [facility] MCHC 27.4(L) 32.0 - 37.0 g/dL LAB HEMETOLOGY METHOD 04/17/2024 10:42 AM [facility] RDW 16.9(H) 11.0 - 15.0 % LAB HEMETOLOGY METHOD 04/17/2024 10:42 AM [facility] Platelets 206 130 - 400 K/mcL LAB HEMETOLOGY METHOD 04/17/2024 10:42 AM [facility] MPV 10.1 7.0 - 11.0 FL LAB HEMETOLOGY METHOD 04/17/2024 10:42 AM [facility] NRBC 0.0 <1.0 % LAB HEMETOLOGY METHOD 04/17/2024 10:42 AM [facility] NRBC Absolute 0.00 <0.10 K/mcL LAB HEMETOLOGY METHOD 04/17/2024 10:42 AM [facility] Blood Venous blood specimen / Unknown Venipuncture / Unknown 04/17/2024 5:33 AM EST 04/17/2024 9:33 AM EST us Catalina Burr MD LAB BLOOD ORDERABLES Final Resul t [facility] [address] [place] [address], documented in this encounter Visit Diagnoses Diagnosis End stage renal disease ([facility]) End stage renal disease Anemia, unspecified documented in this encounter Care Teams Prepress Technician Relationship Specialty Start Date End Date Marita Wetzel DO [address] [place] [address] PCP - General 01/09/23 documented as of this encounter
--- OUTSIDE RECORDS SUMMARY | 2024-07-27 11:39 | XMS_ITS | Encounter Summary ---
Author Organization [facility] Address [address] [place] [address] Care Team Providers Care Help Desk Agent Name Role Phone Marita Wetzel DO Primary Care Provider +1- [phone] Encounter Details Date Type Department Care Team (Late st Contact Info) Description 04/28/2024 Lab Requisition [facility] - Main Lab 299 [facility] [employer] [place] [phone] Marily Gordillo MD [address] [place] [address] Chronic kidney disease, unspecified; Anemia, [...] unspecified documented in this encounter Care Teams Help Desk Agent Relationship Specialty Start Date End Date Marita Wetzel DO [address] [place] [address] PCP - General 01/09/23 documented as of this encounter
--- OUTSIDE RECORDS SUMMARY | 2024-07-27 11:39 | XMS_ITS | Encounter Summary ---
Author Organization [facility] Address [address] [place] [address] Phone Care Team Providers Care Manager Credit Collections Name Role Phone Marita Wetzel DO Primary Care Provider Unava ilable Encounter Details Date Type Department Care Team (Late st Contact Info) Description 12/06/2022 Documentation Only [facility] [address] [place] [phone] [place] [address] [place] [phone] Social History Tobacco Use Types Packs/Day Years [...] [facility] - [facility] Center [address] [place] [place] [phone] documented as of this encounter Visit Diagnoses Not on filedocumented in this encounter Care Teams Manager Credit Collections Relationship Specialty Start Date End Date Marita Wetzel DO [address] [place] [address] PCP - General Family Medicine 11/14/22 documented as of this encounter
--- OUTSIDE RECORDS SUMMARY | 2024-07-27 11:39 | XMS_ITS | Encounter Summary ---
Author Organization [facility] Address [address] [place] [address] Phone Care Team Providers Care Master Baker Name Role Phone Marita Wetzel DO Primary Care Provider Unava ilable Encounter Details Date Type Department Care Team (Late Contact Info) Description 08/27/2023 Documentation Only [facility] [address] [place] [place] [phone] [place] [address] [place] [phone] Social History Tobacco Use Types Packs/Day Years [...] Only [facility] [address] [place] [phone] documented as of this encounter Visit Diagnoses Not on filedocumented in this encounter Care Teams Master Baker Relationship Specialty Start Date End Date Marita Wetzel DO [address] [place] [address] PCP - General Family Medicine 11/14/22 documented as of this encounter
--- OUTSIDE RECORDS SUMMARY | 2024-07-27 11:39 | XMS_ITS | Encounter Summary ---
Author Organization [facility] Address [address] [place] [phone] Phone Care Team Providers Care Patcher Wood Welder Name Role Phone Marita Wetzel DO Primary Care Provider Unava ilable Encounter Details Date Type Department Care Team (Late Contact Info) Description 07/21/2024 Orders Only [facility] [address] [place] [phone] Srinivas Agrawal MD [address] [place] [address] [place] [phone] Social History Tobacco Use Types Packs/Day Years [...] Only [facility] - [facility] Center [address] [place] [address] [place] [phone] documented as of this encounter Procedures Procedure Name Priority Date/Time Associated Diagnosis Comments HEMATOLOGY Routine 07/21/2024 documented in this encounter Results * (ABNORMAL) HEMATOLOGY (07/21/2024) Hemoglobin 7.1(L) 12.0 - 16.0 g/dL [facility] Hemoglobin x 3 21.3(L) 36.0 - 48.0 % [facility] 07/21/2024 07/22/2024 10: 38 AM EDT Narrative [facility] - 07/22/2024 Unless otherwise specified, test(s) performed at: [facility], [address] [place] [address] ACOUSTICAL INSTALLER: Dwayne Fuentes M.D. For any questions, please call customer service at FREQUENCY:OTHER Resulting Agency Comment Specimen source: Blood Srinivas Agrawal MD LAB BLOOD ORDERABLES Final Result [facility] See order comments or contact performing lab Unknown, [place] documented in this encounter Visit Diagnoses Not on filedocumented in this encounter Care Teams Patcher Wood Welder Relationship Specialty Start Date End Date Marita Wetzel DO [address] [place] [address] PCP - General Family Medicine 11/14/22 documented as of this encounter
--- OUTSIDE RECORDS SUMMARY | 2024-07-27 11:39 | XMS_ITS | Encounter Summary ---
Author Organization [facility] Address [address] [place] [address] Care Team Providers Care Reed Worker Name Role Phone Marita Wetzel DO Primary Care Provider +1- [phone] Encounter Details Date Type Department Care Team (Late st Contact Info) Description 05/31/[address] [facility] - Main Lab [address] [facility] [place] [phone] Marliy Gordillo MD [address] [place] [phone] Acute kidney failure, unspecified (CMS/HCC); Chronic embolism [...] unspecified documented in this encounter Care Teams Reed Worker Relationship Specialty Start Date End Date Marita Wetzel DO [address] [place], [place] PCP - General 01/09/23 documented as of this encounter
--- OUTSIDE RECORDS SUMMARY | 2024-07-27 11:39 | XMS_ITS | Encounter Summary ---
Author Organization [facility] Address [address] [place] [address] Care Team Providers Care Tape Calender Name Role Phone Marita Wetzel DO Primary Care Provider +1- [phone] Encounter Details Date Type Department Care Team (Late st Contact Info) Description 04/10/[address] [facility] - Main Lab 299 [facility] [place] [phone] Marily Gordillo MD [address] [place] [phone] Chronic embolism and thrombosis of unspecified vein; [...] unspecified documented in this encounter Care Teams Tape Calender Relationship Specialty Start Date End Date Marita Wetzel DO [address] [place], [place] PCP - General 01/09/23 documented as of this encounter
--- OUTSIDE RECORDS SUMMARY | 2024-07-27 11:39 | XMS_ITS | Encounter Summary ---
Author Organization [facility] Address [address] [place] [address] Care Team Providers Care Detective Homicide Squad Name Role Phone Marita Wetzel DO Primary Care Provider +1- [phone] Encounter Details Date Type Department Care Team (Late st Contact Info) Description 04/29/2024 Lab Requisition [facility] - Main Lab 299 [facility] [place] [phone] Marily Gordillo MD [address] [place] [phone] Chronic embolism and thrombosis of unspecified vein; [...] unspecified documented in this encounter Care Teams Detective Homicide Squad Relationship Specialty Start Date End Date Marita Wetzel DO [address] [place], [place] PCP - General 01/09/23 documented as of this encounter
--- OUTSIDE RECORDS SUMMARY | 2024-07-27 11:39 | XMS_ITS | Encounter Summary ---
Author Organization [facility] Address [address] [place] [address] 7 [place] [address] Care Team Providers Care Paste Mixer Liquid Name Role Phone Marita Wetzel DO Primary Care Provider + [phone] Reason for Visit * Reason Onset Date Comments Hospital Follow-up 06/11/2024 Encounter Details Date Type Department Care Team ([facility] st Contact Info) Description 06/11/2024 Telephone [facility] [address] [place] [address] Marita Wetzel DO [address] [place], [place] [phone] Hospital Follow-up Social History Tobacco Use Types [...] from pt requesting a HDF appt. Hospital: [facility] Date of admission: 05/31/2024 Discharge date: ------ Diagnosed:kidney failure *Send message to [place] Clinical Care Coordinators documented in this encounter Plan of Treatment Upcoming Encounters Date Type Department Care Team (Late st Contact Info) Description 08/20/2024 10:00 AM EDT Office Visit [facility] [address] [place] [address] Marita Wetzel DO [address] [place], [place] [phone] documented as of this encounter Goals Goal [...] documented as of this encounter Care Teams Paste Mixer Liquid Relationship Specialty Start Date End Date Marita Wetzel DO [address] [place] [address] PCP - General Family Medicine 04/21/18 [facility] 05/22/24 documented as of this encounter
--- OUTSIDE RECORDS SUMMARY | 2024-07-27 11:39 | XMS_ITS | Encounter Summary ---
Author Organization [facility] Address [address] [place] [address] Care Team Providers Care Die Storage Worker Name Role Phone Marita Wetzel DO Primary Care Provider +1- [phone] Encounter Details Date Type Department Care Team (Late st Contact Info) Description 04/28/2024 Lab Requisition [facility] - Main Lab 299 [facility] [place] [phone] Marily Gordillo MD [address] [place] [address] Chronic kidney disease, unspecified; Anemia, [...] unspecified documented in this encounter Care Teams Die Storage Worker Relationship Specialty Start Date End Date Marita Wetzel DO [address] [place] [address] PCP - General 01/09/23 documented as of this encounter
--- OUTSIDE RECORDS SUMMARY | 2024-07-27 11:39 | XMS_ITS | Encounter Summary ---
Author Organization [facility] Address [address] [place] [address] Care Team Providers Care Spare Fixer Name Role Phone Marita Wetzel Primary Care Provider +1- [phone] Encounter Details Date Type Department Care Team (Late st Contact Info) Description 04/17/2024 Lab Requisition [facility] - Main Lab 299 [facility] [place] [phone] Marily Gordillo MD [address] [place] [phone] Chronic embolism and thrombosis of unspecified vein; [...] Test performed at [facility], [address], [place], [place] ??[address] ? [phone] Ashtyn Leigh MD, PhD - Wildlife Protector Blood Venous blood specimen / Unknown Venipuncture / Unknown 04/19/2024 6:21 AM EST 04/19/2024 8:33 AM EST us Marily Gordillo MD LAB BLOOD ORDERABLES Final Resul t [place] [address] * (ABNORMAL) Renal function panel (04/19/2024 6:21 AM EST) Sodium 144 133 - 145 mmol/L LAB CHEMISTRY METHOD 04/19/2024 9:42 AM [facility] Potassium 3.3(L) 3.5 - 5.5 mmol/L LAB CHEMISTRY METHOD 04/19/2024 9:42 AM [facility] Chloride 114(H) 96 - 110 mmol/L LAB CHEMISTRY METHOD 04/19/2024 9:42 AM [facility] CO2 22 21 - 32 mmol/L LAB CHEMISTRY METHOD 04/19/2024 9:42 AM [facility] Anion Gap 8 3 - 11 LAB CHEMISTRY METHOD 04/19/2024 9:42 AM [facility] Glucose 177(H) 70 - 100 mg/dL LAB CHEMISTRY METHOD 04/19/2024 9:42 AM [facility] BUN 42(H) 5 - 25 mg/dL LAB CHEMISTRY METHOD 04/19/2024 9:42 AM [facility] Creatinine 3.65(H) 0.50 - 1.10 mg/dL LAB CHEMISTRY METHOD 04/19/2024 9:42 AM [facility] eGFR 13(L) >=60 mL/min/1. 73m2 LAB CHEMISTRY METHOD 04/19/2024 9:42 AM [facility] Comment:Calculation based on the??Chronic Kidney Disease Epidemiology Collaboration (CKD-EPI) equation refit??without adjustment for race. BUN/Creatinine Ratio 11.5 LAB CHEMISTRY METHOD 04/19/2024 9:42 AM [facility] Albumin 2.0(L) 3.2 - 5.0 g/dL LAB CHEMISTRY METHOD 04/19/2024 9:42 AM EST [facility] Calcium 8.5 8.5 - 10.5 mg/dL LAB CHEMISTRY METHOD 04/19/2024 9:42 AM [facility] Phosphorus 2.6 2.5 - 4.5 mg/dL LAB CHEMISTRY METHOD 04/19/2024 9:42 AM [facility] Blood Venous blood specimen / Unknown Venipuncture / Unknown 04/19/2024 6:21 AM EST 04/19/2024 8:33 AM EST Marily Gordillo MD LAB BLOOD ORDERABLES Final Resul t [facility] [address] [place] [address], * (ABNORMAL) Complete blood count (04/19/2024 6:21 AM EST) WBC 12.0(H) 4.8 - 10.8 K/mcL LAB HEMETOLOGY METHOD 04/19/2024 9:26 AM [facility] RBC 2.80(L) 3.80 - 4.80 M/mcL LAB HEMETOLOGY METHOD 04/19/2024 9:26 AM [facility] Hemoglobin 7.6(L) 11.5 - 16.0 g/dL LAB HEMETOLOGY METHOD 04/19/2024 9:26 AM [facility] Hematocrit 27.3(L) 35.0 - 47.0 % LAB HEMETOLOGY METHOD 04/19/2024 9:26 AM [facility] MCV 98.2(H) 79.0 - 98.0 FL LAB HEMETOLOGY METHOD 04/19/2024 9:26 AM [facility] MCH 27.3 27.0 - 32.0 pcg LAB HEMETOLOGY METHOD 04/19/2024 9:26 AM EST [facility] MCHC 27.8(L) 32.0 - 37.0 g/dL LAB HEMETOLOGY METHOD 04/19/2024 9:26 AM [facility] RDW 16.6(H) 11.0 - 15.0 % LAB HEMETOLOGY METHOD 04/19/2024 9:26 AM [facility] Platelets 230 130 - 400 K/mcL LAB HEMETOLOGY METHOD 04/19/2024 9:26 AM [facility] MPV 10.9 7.0 - 11.0 FL LAB HEMETOLOGY METHOD 04/19/2024 9:26 AM [facility] NRBC 0.0 <1.0 % LAB HEMETOLOGY METHOD 04/19/2024 9:26 AM [facility] NRBC Absolute 0.00 <0.10 K/mcL LAB HEMETOLOGY METHOD 04/19/2024 9:26 AM [facility] Blood Venous blood specimen / Unknown Venipuncture / Unknown 04/19/2024 6:21 AM EST 04/19/2024 8:33 AM EST us Marily Gordillo MD LAB BLOOD ORDERABLES Final Resul t [facility] [address] [place] [address], documented in this encounter Visit Diagnoses Diagnosis Chronic embolism and thrombosis of unspecified vein Acute kidney failure, unspecified (CMS/HCC) Acute kidney failure, unspecified documented in this encounter Care Teams Spare Fixer Relationship Specialty Start Date End Date Marita Wetzel DO [address] [place] [address] PCP - General 01/09/23 documented as of this encounter
--- OUTSIDE RECORDS SUMMARY | 2024-07-27 11:39 | XMS_ITS | Encounter Summary ---
Author Organization [facility], Address [address] [place] [phone] Phone Care Team Providers Care Landscape Photographer Name Role Phone Marita Wetzel DO Primary Care Provider Unava ilable Encounter Details Date Type Department Care Team (Late Contact Info) Description 07/19/2024 Orders Only [facility] [address] [place] [phone] Srinivas Agrawal MD [address] [place] [address] [place] [phone] Social History Tobacco Use Types Packs/Day Years [...] Only [facility], - Vascular Access Center [address] [place] [address] [place] [phone] documented as of this encounter Procedures Procedure Name Priority Date/Time Associated Diagnosis Comments CHEMISTRY Routine 07/19/2024 documented in this encounter Results * [facility] (07/19/2024) Potassium 4.4 3.5 - 5.1 mEq/L [facility] 07/19/2024 07/22/2024 12: 20 PM EDT Narrative [facility] - 07/22/2024 Unless otherwise specified, test(s) performed at: [facility], [address] [place] [id number] LOAN EXAMINER: Dwayne Feuntes M.D. For any questions, please call customer service at FREQUENCY:OTHER Resulting Agency Comment Specimen source: Serum us Srinivas Agrawal MD LAB BLOOD ORDERABLES Final Result [facility] See order comments or contact performing lab Unknown, [place] documented in this encounter Visit Diagnoses Not on filedocumented in this encounter Care Teams Landscape Photographer Relationship Specialty Start Date End Date Marita Wetzel DO [address] [place] [address] PCP - General Family Medicine 11/14/22 documented as of this encounter
--- OUTSIDE RECORDS SUMMARY | 2024-07-27 11:39 | XMS_ITS | Encounter Summary ---
Author Organization [facility] Address [address] [place] [address] Care Team Providers Care Graphic Art Sales Representative Name Role Phone Marita Wetzel Primary Care Provider +1- [phone] Encounter Details Date Type Department Care Team (Late st Contact Info) Description 04/23/2024 Lab Requisition [facility] - Main Lab [address] [place] [phone] Marily Gordillo MD [address] [place] [address] Chronic embolism and thrombosis of [...] LAB CHEMISTRY METHOD 04/26/2024 9:11 AM EST [facility] Potassium 3.4(L) 3.5 - 5.5 mmol/L LAB CHEMISTRY METHOD 04/26/2024 9:11 AM EST [facility] Chloride 109 96 - 110 mmol/L LAB CHEMISTRY METHOD 04/26/2024 9:11 AM [facility] CO2 27 21 - 32 mmol/L LAB CHEMISTRY METHOD 04/26/2024 9:11 AM [facility] Anion Gap 7 3 - 11 LAB CHEMISTRY METHOD 04/26/2024 9:11 AM [facility] Glucose 80 70 - 100 mg/dL LAB CHEMISTRY METHOD 04/26/2024 9:11 AM [facility] BUN 29(H) 5 - 25 mg/dL LAB CHEMISTRY METHOD 04/26/2024 9:11 AM [facility] Creatinine 3.36(H) 0.50 - 1.10 mg/dL LAB CHEMISTRY METHOD 04/26/2024 9:11 AM [facility] eGFR 15(L) >=60 mL/min/1. 73m2 LAB CHEMISTRY METHOD 04/26/2024 9:11 AM [facility] Comment:Calculation based on the??Chronic Kidney Disease Epidemiology Collaboration (CKD-EPI) equation refit??without adjustment for race. BUN/Creatinine Ratio 8.6 LAB CHEMISTRY METHOD 04/26/2024 9:11 AM [facility] Albumin 2.1(L) 3.2 - 5.0 g/dL LAB CHEMISTRY METHOD 04/26/2024 9:11 AM [facility] Calcium 8.7 8.5 - 10.5 mg/dL LAB CHEMISTRY METHOD 04/26/2024 9:11 AM [facility] Phosphorus 2.5 2.5 - 4.5 mg/dL LAB CHEMISTRY METHOD 04/26/2024 9:11 AM [facility] Blood Venous blood specimen / Unknown Venipuncture / Unknown 04/26/2024 6:18 AM EST 04/26/2024 8:28 AM EST Marily Gordillo MD LAB BLOOD ORDERABLES Final Resul t [facility] [address] [place] [address], documented in this encounter Visit Diagnoses Diagnosis Chronic embolism and thrombosis of unspecified vein Acute kidney failure, unspecified (CMS/HCC) Acute kidney failure, unspecified documented in this encounter Care Teams Graphic Art Sales Representative Relationship Specialty Start Date End Date Marita Wetzel DO [address] [place] [address] PCP - General 01/09/23 documented as of this encounter
--- OUTSIDE RECORDS SUMMARY | 2024-07-27 11:39 | XMS_ITS | Encounter Summary ---
Author Organization [facility] Address [address] [place] [address] Care Team Providers Care Director Retirement Name Role Phone Marita Wetzel DO Primary Care Provider +1- [phone] Encounter Details Date Type Department Care Team (Late st Contact Info) Description 05/12/[address] [facility] - Main Lab 299 [facility] [employer] [place] [phone] Marily Gordillo MD [address] [place] [address] Chronic kidney disease, unspecified; Anemia, [...] unspecified documented in this encounter Care Teams Director Retirement Relationship Specialty Start Date End Date Marita Wetzel DO [address] [place] [address] PCP - General 01/09/23 documented as of this encounter
--- OUTSIDE RECORDS SUMMARY | 2024-07-27 11:39 | XMS_ITS | Encounter Summary ---
Author Organization [facility] Address [address] [place] [address] Phone Care Team Providers Care Composition Roll Maker And Cutter Name Role Phone Marita Wetzel DO Primary Care Provider Unava ilable Encounter Details Date Type Department Care Team (Late st Contact Info) Description 07/04/2023 Documentation Only [facility] [address] [place] [phone] Pauline Aguayo [address] [place] [phone] Social History Tobacco Use Types Packs/Day Years [...] Only [facility] [address] [place] [phone] documented as of this encounter Visit Diagnoses Not on filedocumented in this encounter Care Teams Composition Roll Maker And Cutter Relationship Specialty Start Date End Date Marita Wetzel DO [address] [place] [address] PCP - General Family Medicine 11/14/22 documented as of this encounter
--- OUTSIDE RECORDS SUMMARY | 2024-07-27 11:39 | XMS_ITS | Encounter Summary ---
Author Organization [facility] Address [address] [place] [address] Phone Care Team Providers Care Spice Mixer Name Role Phone Marita Wetzel DO Primary Care Provider Unava ilable Encounter Details Date Type Department Care Team (Late st Contact Info) Description 07/29/2023 Documentation Only [facility] [address] [place] [phone] Pauline Aguayo [address] [place] [phone] Social History Tobacco Use Types Packs/Day Years [...] Only [facility] V[facility] Access Center [address] [place] [phone] documented as of this encounter Visit Diagnoses Not on filedocumented in this encounter Care Teams Spice Mixer Relationship Specialty Start Date End Date Marita Wetzel DO [address] [place] [address] PCP - General Family Medicine 11/14/22 documented as of this encounter
--- OUTSIDE RECORDS SUMMARY | 2024-07-27 11:39 | XMS_ITS | Encounter Summary ---
Author Organization [facility] Address [address] [place] [address] Care Team Providers Care Structural Steel Painter Name Role Phone Marita Wetzel DO Primary Care Provider +1- [phone] Encounter Details Date Type Department Care Team (Late st Contact Info) Description 2024 Lab Requisition [facility] - Main Lab [address] [facility] [employer] [place] [phone] Marily Gordillo MD [address] [place] [address] Chronic kidney disease, unspecified; Anemia, [...] unspecified documented in this encounter Care Teams Structural Steel Painter Relationship Specialty Start Date End Date Marita Wetzel DO [address] [place] [address] PCP - General 01/09/23 documented as of this encounter
--- OUTSIDE RECORDS SUMMARY | 2024-07-27 11:39 | XMS_ITS | Encounter Summary ---
Author Organization [facility] Address [address] [place] [address] Care Team Providers Care Wastewater Plant Civil Engineer Name Role Phone Marita Wetzel Primary Care Provider +1- [phone] Encounter Details Date Type Department Care Team (Late st Contact Info) Description 04/30/[address] [facility] - Main Lab [address] [place] [phone] Marily Gordillo MD [address] [place] [phone] Chronic embolism and thrombosis of unspecified vein; [...] CHEMISTRY METHOD 05/03/2024 10:39 AM EST [facility] Potassium 5.1 3.5 - 5.5 mmol/L LAB CHEMISTRY METHOD 05/03/2024 10:39 AM [facility] Chloride 99 96 - 110 mmol/L LAB CHEMISTRY METHOD 05/03/2024 10:39 AM [facility] CO2 28 21 - 32 mmol/L LAB CHEMISTRY METHOD 05/03/2024 10:39 AM [facility] Anion Gap 7 3 - 11 LAB CHEMISTRY METHOD 05/03/2024 10:39 AM [facility] Glucose 133(H) 70 - 100 mg/dL LAB CHEMISTRY METHOD 05/03/2024 10:39 AM [facility] BUN 40(H) 5 - 25 mg/dL LAB CHEMISTRY METHOD 05/03/2024 10:39 AM [facility] Creatinine 3.27(H) 0.50 - 1.10 mg/dL LAB CHEMISTRY METHOD 05/03/2024 10:39 AM [facility] eGFR 15(L) >=60 mL/min/1. 73m2 LAB CHEMISTRY METHOD 05/03/2024 10:39 AM [facility] Comment:Calculation based on the??Chronic Kidney Disease Epidemiology Collaboration (CKD-EPI) equation refit??without adjustment for race. BUN/Creatinine Ratio 12.2 LAB CHEMISTRY METHOD 05/03/2024 10:39 AM [facility] Albumin 2.1(L) 3.2 - 5.0 g/dL LAB CHEMISTRY METHOD 05/03/2024 10:39 AM [facility] Calcium 8.6 8.5 - 10.5 mg/dL LAB CHEMISTRY METHOD 05/03/2024 10:39 AM [facility] Phosphorus 1.8(L) 2.5 - 4.5 mg/dL LAB CHEMISTRY METHOD 05/03/2024 10:39 AM [facility] Blood Venous blood specimen / Unknown Venipuncture / Unknown 05/03/2024 6:09 AM EST 05/03/2024 9:28 AM EST us Marily Gordillo MD LAB BLOOD ORDERABLES Final Resul t [facility] [place] ([facility]) [facility] [address] [place] [address], * Tacrolimus level (05/03/2024 6:09 AM EST) [...] developed and the performance characteristics determined by [facility]. This confirmation testing has not been cleared or approved by the FDA. The laboratory is regulated under CLIA as qualified to perform high-complexity testing. This test is used for patient testing purposes. It should not be regarded as investigational or for research. Test performed at [facility], [address], [place], [place] ??[address] ? [phone] Ashtyn Leigh MD, PhD - Pt Sitter Blood Venous blood specimen / Unknown Venipuncture / Unknown 05/03/2024 6:09 AM EST 05/03/2024 9:28 AM EST Marily Gordillo MD LAB BLOOD ORDERABLES Final Resul t [facility] [address] [place] [address] documented in this encounter Visit Diagnoses Diagnosis Chronic embolism and thrombosis of unspecified vein Acute kidney failure, unspecified (CMS/[facility]) Acute kidney failure, unspecified documented in this encounter Care Teams Wastewater Plant Civil Engineer Relationship Specialty Start Date End Date Marita Wetzel DO [address] [place] [address] PCP - General 01/09/23 documented as of this encounter
--- OUTSIDE RECORDS SUMMARY | 2024-07-27 11:39 | XMS_ITS | Encounter Summary ---
Author Organization [facility] Address [address] [place] [address] Phone Care Team Providers Care Laborer Salvage Name Role Phone Marita Wetzel DO Primary Care Provider Unava ilable Encounter Details Date Type Department Care Team (Late st Contact Info) Description 01/01/2024 Documentation Only [facility] [address] [place] [phone] [place] [address] [place] [phone] Social History Tobacco Use Types Packs/Day Years [...] [facility] V[facility] Access Center [address] [place] [phone] documented as of this encounter Visit Diagnoses Not on filedocumented in this encounter Care Teams Laborer Salvage Relationship Specialty Start Date End Date Marita Wetzel DO [address] [place] [address] PCP - General Family Medicine 11/14/22 documented as of this encounter
--- OUTSIDE RECORDS SUMMARY | 2024-07-27 11:39 | XMS_ITS | Encounter Summary ---
Author Organization [facility] Address [address] [place] [address] Phone Care Team Providers Care Deputy United States Marshal Name Role Phone Marita Wetzel DO Primary Care Provider Unava ilable Encounter Details Date Type Department Care Team (Late Contact Info) Description 06/12/2023 Documentation Only [facility] [address] [place] [phone] [place] [address] [place] [phone] Social History Tobacco Use Types Packs/Day Years [...] Only [facility] Access Center [address] [place] [phone] documented as of this encounter Visit Diagnoses Not on filedocumented in this encounter Care Teams Deputy United [place] Marshal Relationship Specialty Start Date End Date Marita Wetzel DO [address] [place] [address] PCP - General Family Medicine 11/14/22 documented as of this encounter
--- OUTSIDE RECORDS SUMMARY | 2024-07-27 11:40 | XMS_ITS | Encounter Summary ---
Author Organization [facility] Address [address] [place] [address] Phone Care Team Providers Care Welt Rougher Name Role Phone Marita Wetzel DO Primary Care Provider Unava ilable Encounter Details Date Type Department Care Team (Late st Contact Info) Description 07/26/2024 Treatment [facility], [address] [place] [address] Jeanne Bailey MD [address] [place] [address] [place] [phone] End stage renal disease; Dependence on renal [...] encounter Miscellaneous Notes * Dialysis Note - eJanne Bailey MD - 07/26/2024 12:00 AM EDT BASIC NOTE Patient: Alix Sharp : 1960 Note Author: JEANNE BAILEY MD Service Date: 07/26/2024 This patient was personally seen for a basic visit as part of routine monthly dialysis care for end stage renal disease. Attending Concrete Bucket Loader: JEANNE BAILEY MD Dialysis Location: [facility] Schedule: Shift: 3 OVERVIEW Patient is stable. COMMENTS: [...] Run even or positive. HOME MEDICATIONS Current [facility] Outpatient Medications amlodipine 10 mg tablet [...] capsule by mouth once a day. Current [facility] Allergies Allergen: codeine Reaction: Unknown Allergen: oxycodone Reaction: Unknown DIALYSIS PRESCRIPTION Treatment Data Treatment Date: 07/26/2024 started at: 11:40 AM Dialysate / Machine Temp (prescribed): 36.0*C Dialysate / Machine Temp (actual): 36.0*C BFR (prescribed): 350 BFR (average delivered): 340 DFR (prescribed): Manual 500 DFR (average delivered): 500 Prescribed Time: 03:15 Actual Time: 02:56 EDW (kg): 56.5 Dialyzer: 160NRe Optiflux Dialysate: 2.0 K, 2.50 Ca, 1.0 Mg, 100 Dextrose (NW0637) Sodium: 137 Bicarb: 35 Pre Dialysis Vitals Pre BP Sit: 147/89 Pre Wt (kg): 57.9 EDW Deviation (kg): 1.4 Temp: 96.2*F Post Dialysis Vitals Post BP Sit: 171/86 Post Wt (kg): 56.9 TREATMENT MEDICATIONS ORDERS Mircera 225 mcg IVP Every 2 weeks During Dialysis 07/14/2024 - 07/13/2025 BP AND FLUID ASSESSMENT Post BP Sit 171/86 - 07/26/2024 170/73 - 07/23/2024 152/81 - 07/21/2024 Post Wt (kg) 56.9 - 07/26/2024 56.6 - 07/23/2024 56.1 - 07/21/2024 EDW (kg) 56.5 - 07/26/2024 56.5 - 07/23/2024 56.5 - 07/21/2024 Deviation (kg) 0.4 - 07/26/2024 0.1 - 07/23/2024 -0.4 - 07/21/2024 ADEQUACY ASSESSMENT spKt/V (Daugirdas II) 1.46 (07/09/24) [...] Missed Treatments 0 - Last 30 days 9 - Last 60 days Most recently missed on 06/16/2024 ACCESS ASSESSMENT AVGraft Synthetic - Standard (PTFE) Left Upper Arm Active (In Use) - 04/23/2024 Placed - 01/22/2024 Access Flow 1264 (07/26/24) 1226 (07/23/24) ANEMIA ASSESSMENT Hemoglobin 7.1 (07/21/24) 7.7 (07/14/24) 8.4 (07/07/24) Iron Saturation (TSat) 46 (07/07/24) 53 (06/18/24) [...] 3.0 07/07/24 2.9 06/18/24 2.7 04/23/24 Potassium 4.4 07/19/24 4.2 07/12/24 3.5 07/07/24 eNPCR 0.59 07/09/24 0.67 05/10/24 Hemoglobin A1C [...] reviewed. Dietary adjustments made in conjunction with bight maker. 7.Transplant: not a candidate. 06/21/24 Patient is stable, recently cd from [facility] after episode of pneumonia Medications reviewed Physical [...] reviewed. Dietary adjustments made in conjunction with bight maker. Transplant: Not a candidate. 05/24/24 Patient is [...] reviewed. Dietary adjustments made in conjunction with bight maker. 7.Transplant: Not a candidate. decreasing tacrolimus doing [...] reviewed. Dietary adjustments made in conjunction with bight maker. Transplant: The patient will be re-evaluated for a kidney transplant. Signed by: JEANNE BAILEY MD on 07/27/2024 at 12:04:25 AM documented in this encounter Plan of Treatment Upcoming Encounters Date Type Department Care Team (Late st Contact Info) Description 11/03/2024 12:30 PM EDT Scheduled Only [facility] [address] [place] [address] documented as of this encounter Visit Diagnoses Diagnosis End stage renal disease Dependence on renal dialysis documented in this encounter Care Teams Welt Rougher Relationship Specialty Start Date End Date Marita Wetzel DO [address] [place] [address] PCP - General Family Medicine 11/14/22 documented as of this encounter
--- OUTSIDE RECORDS SUMMARY | 2024-07-27 11:40 | XMS_ITS | Encounter Summary ---
Author Organization [facility] Address [address] [place] [address] Care Team Providers Care Cisco Unified Communications Engineer Name Role Phone Marita Wetzel Primary Care Provider +1- [phone] Encounter Details Date Type Department Care Team (Late st Contact Info) Description 03/12/2024 Lab Requisition [facility] - Main Lab [address] [facility] [place] [address] Catalina Burr MD [address] [place] [address] Chronic embolism and thrombosis of unspecified vein; [...] - 20.0 ng/mL 03/17/2024 1:34 PM EST [facility] Comment: Additional Information: Toxic Level [...] developed and the performance characteristics determined by [facility]. This confirmation testing has not been cleared or approved by the FDA. The laboratory is regulated under CLIA as qualified to perform high-complexity testing. This test is used for patient testing purposes. It should not be regarded as investigational or for research. Test performed at [facility], [facility] [place] [facility] ? [phone] Ashtyn Leigh MD, PhD - Director Federal Blood Venous blood specimen / Unknown Venipuncture / Unknown 03/15/2024 8:20 AM EST 03/15/2024 10:20 AM EST us Catalina Burr MD LAB BLOOD ORDERABLES Final Resul [place] [address] * (ABNORMAL) Renal function panel (03/15/2024 8:20 AM EST) Sodium 139 133 - 145 mmol/L LAB CHEMISTRY METHOD 03/15/2024 11:31 AM [facility] Potassium 5.6(H) 3.5 - 5.5 mmol/L LAB CHEMISTRY METHOD 03/15/2024 11:31 AM [facility] Chloride 108 96 - 110 mmol/L LAB CHEMISTRY METHOD 03/15/2024 11:31 AM [facility] CO2 19(L) 21 - 32 mmol/L LAB CHEMISTRY METHOD 03/15/2024 11:31 AM [facility] Anion [place] 12(H) 3 - 11 LAB CHEMISTRY METHOD 03/15/2024 11:31 AM [facility] Glucose 105(H) 70 - 100 mg/dL LAB CHEMISTRY METHOD 03/15/2024 11:31 AM [facility] BUN 36(H) 5 - 25 mg/dL LAB CHEMISTRY METHOD 03/15/2024 11:31 AM [facility] Creatinine 3.97(H) 0.50 - 1.10 mg/dL LAB CHEMISTRY METHOD 03/15/2024 11:31 AM [facility] eGFR 12(L) >=60 mL/min/1. 73m2 LAB CHEMISTRY METHOD 03/15/2024 11:31 AM [facility] Comment:Calculation based on the??Chronic Kidney Disease Epidemiology Collaboration (CKD-EPI) equation refit??without adjustment for race. BUN/Creatinine Ratio 9.1 LAB CHEMISTRY METHOD 03/15/2024 11:31 AM [facility] Albumin 2.6(L) 3.2 - 5.0 g/dL LAB CHEMISTRY METHOD 03/15/2024 11:31 AM EST [facility] Calcium 9.5 8.5 - 10.5 mg/dL LAB CHEMISTRY METHOD 03/15/2024 11:31 AM EST [facility] Phosphorus 4.0 2.5 - 4.5 mg/dL LAB CHEMISTRY METHOD 03/15/2024 11:31 AM EST [facility] Blood Venous blood specimen / Unknown Venipuncture / Unknown 03/15/2024 8:20 AM EST 03/15/2024 10:16 AM EST us Catalina Burr MD LAB BLOOD ORDERABLES Final Resul t [facility] [address] [place] [address], documented in this encounter Visit Diagnoses Diagnosis Chronic embolism and thrombosis of unspecified vein Acute kidney failure, unspecified (CMS/HCC) Acute kidney failure, unspecified Type 2 diabetes mellitus without complications documented in this encounter Care Teams Cisco Unified Communications Engineer Relationship Specialty Start Date End Date Marita Wetzel DO [address] [place] [address] PCP - General 01/09/23 documented as of this encounter
--- OUTSIDE RECORDS SUMMARY | 2024-07-27 11:40 | XMS_ITS | Encounter Summary ---
Author Organization [facility], Address [address] [place] [address] Phone Care Team Providers Care Construction Electrician Name Role Phone Marita Wetzel DO Primary Care Provider Unava ilable Reason for Visit * Reason Comments Med Refill Encounter Details Date Type Department Care Team (Late Contact Info) Description 01/04/2021 Refill [facility] [address] [place] [phone] Bernardo Doty MD [address] [place] [address] [place] [address] Social History Tobacco Use Types [...] Only [facility] [address] [place] [address] [place] [phone] documented as of this encounter Visit Diagnoses Not on filedocumented in this encounter Care Teams Construction Electrician Relationship Specialty Start Date End Date Marita Wetzel DO [address] [place] [address] PCP - General Family Medicine 7/27/23 documented as of this encounter
--- OUTSIDE RECORDS SUMMARY | 2024-07-27 11:40 | XMS_ITS | Encounter Summary ---
Author Organization [facility] Address [address] [place] [address] Phone Care Team Providers Care Charge Master Specialist Name Role Phone Marita Wetzel DO Primary Care Provider Unava ilable Encounter Details Date Type Department Care Team (Late st Contact Info) Description 04/13/2024 Documentation Only [facility] [address] [place] [phone] [place] [address] [place] [phone] Social History Tobacco Use Types Packs/Day Years [...] Only [facility] Access Center [address] [place] [phone] documented as of this encounter Visit Diagnoses Not on filedocumented in this encounter Care Teams Charge Master Specialist Relationship Specialty Start Date End Date Marita Wetzel DO [address] [place] [address] PCP - General Family Medicine 11/14/22 documented as of this encounter
--- OUTSIDE RECORDS SUMMARY | 2024-07-27 11:40 | XMS_ITS | Encounter Summary ---
Author Organization [facility] Address [address] [place] [address] Phone Care Team Providers Care Aoc Plans Intelligence Officer Chief Name Role Phone Marita Wetzel DO Primary Care Provider Unava ilable Encounter Details Date Type Department Care Team (Late st Contact Info) Description 11/11/2022 Documentation Only [facility] [address] [place] [phone] Pauline Aguayo [address] [place] [phone] Social History Tobacco Use Types Packs/Day Years [...] Of [facility] [address] [place] [phone] documented as of this encounter Visit Diagnoses Not on filedocumented in this encounter Care Teams Aoc Plans Intelligence Officer Chief Relationship Specialty Start Date End Date Marita Wetzel DO [address] [place] [address] PCP - General Family Medicine 11/14/22 documented as of this encounter
--- OUTSIDE RECORDS SUMMARY | 2024-07-27 11:40 | XMS_ITS | Clinical Summary ---
Author Organization [address] Address [address] [place] [address] Phone Care Team Providers Care Institutional Commodity Analyst Name Role Phone Mraita Wetzel Primary Care Provider +1- [phone] Encounters Date Type Department Care Team Description 05/31/2024 Lab Requisition [facility] [address] [place] [phone] Marily Gordillo MD Acute kidney failure, unspecified (CMS/HCC); Chronic embolism and thrombosis of unspecified vein; Anemia, unspecified 05/30/2024 Lab Requisition [facility] [address] [place] [phone] Marily Gordillo MD Chronic embolism and thrombosis of unspecified vein; Acute kidney failure, unspecified (CMS/HCC) 05/21/2024 Lab Requisition [facility] [address] [place] [phone] Marily Gordillo MD Chronic embolism and thrombosis of unspecified vein; Acute kidney failure, unspecified (CMS/HCC) 05/15/2024 Lab Requisition [facility] [address] [place] [phone] Marily Gordillo MD Chronic embolism and thrombosis of unspecified vein; Acute kidney failure, unspecified (CMS/HCC) 05/12/2024 Lab Requisition [facility] [address] [place] [phone] Marily Gordillo MD Chronic kidney disease, unspecified; Anemia, unspecified 05/07/2024 Lab Requisition [facility] [address] [place] [phone] Marily Gordillo MD Chronic embolism and thrombosis of unspecified vein; Acute kidney failure, unspecified (CMS/HCC) 2024 Lab Requisition [facility] [address] [place] [phone] Marily Gordillo MD Chronic kidney disease, unspecified; Anemia, unspecified 04/30/2024 Lab Requisition [facility] [address] [place] [phone] Marily Gordillo MD Chronic embolism and thrombosis of unspecified vein; Acute kidney failure, unspecified (CMS/HCC) 04/30/2024 Lab Requisition [facility] [address] [place] [phone] Marily Gordillo MD Anemia, unspecified; Chronic embolism and thrombosis of unspecified vein; Acute kidney failure, unspecified (CMS/HCC) 04/29/2024 Lab Requisition [facility] [address] [place] [phone] Marily Gordillo MD Chronic embolism and thrombosis of unspecified vein; Acute kidney failure, unspecified (CMS/HCC) 04/28/2024 Lab Requisition [facility] [address] [place] [phone] Marily Gordillo MD Chronic kidney disease, unspecified; Anemia, unspecified 04/28/2024 Lab Requisition [facility] [address] [place] [phone] Marily Gordillo MD Chronic kidney disease, unspecified; Anemia, unspecified from Last 3 Months Immunizations Name Administration [...] Cancer Screening: Pap Smear 1981 RSV Immunization Adult Patients (1 - Risk 60-74 years 1-dose series) [...] age to complete this topic Meningococcal B Vaccine Aged Out No l onger eligible based on patient's age to complete [...] 5:50 AM EST) Only the most recent of2 resultswithin the time period is included. Tacrolimus Level 7.1 5.0 - 20.0 ng/mL 05/13/2024 2:01 PM EST [facility] Comment: Additional Information: Toxic Level ?> [...] developed and the performance characteristics determined by [facility]. This confirmation testing has not been cleared or approved by the FDA. The laboratory is regulated under CLIA as qualified to perform high-complexity testing. This test is used for patient testing purposes. It should not be regarded as investigational or for research. Test performed at [facility], [address], [place], [place] ??[address] ? [phone] Ashtyn Leigh MD, PhD - Engineering Aide Blood Venous blood specimen / Unknown Venipuncture / Unknown 05/10/2024 5:50 AM EST 05/10/2024 9:58 AM EST Marily Gordillo MD LAB BLOOD ORDERABLES Final Resul t [facility] [address] [place] [address] * (ABNORMAL) Renal function panel (05/10/2024 5:50 AM EST) Only the most recent of2 resultswithin the time period is included. Sodium 135 133 - 145 mmol/L LAB CHEMISTRY METHOD 05/10/2024 11:45 AM [facility] Potassium 3.8 3.5 - [...] 73m2 LAB CHEMISTRY METHOD 05/10/2024 11:45 AM EST [facility] Comment:Calculation based on the??Chronic Kidney Disease Epidemiology Collaboration (CKD-EPI) equation refit??without adjustment for race. BUN/Creatinine Ratio 13.0 LAB CHEMISTRY METHOD 05/10/2024 11:45 AM EST [facility] Albumin 1.7(L) 3.2 - [...] MD LAB BLOOD ORDERABLES Final Resul t [facility] [address] [place] [address], [place] [phone] * (ABNORMAL) Iron (05/03/2024 6:09 AM EST) Iron 35(L) 40 - 150 mcg/dL LAB CHEMISTRY METHOD 05/03/2024 10:59 AM EST [facility] Blood Venous blood specimen / Unknown Venipuncture / Unknown 05/03/2024 6:09 AM EST 05/03/2024 9:29 AM EST us Marily Gordillo MD LAB BLOOD ORDERABLES Final Resul t [facility] [address] [place] [address], [place] [phone] * (ABNORMAL) Ferritin (05/03/2024 6:09 AM EST) Ferritin 2,737(H) 8 - 252 ng/mL LAB CHEMISTRY METHOD 05/03/2024 10:59 AM EST [facility] Blood Venous blood specimen / Unknown Venipuncture / Unknown 05/03/2024 6:09 AM EST 05/03/2024 9:29 AM EST us Marily Gordillo MD LAB BLOOD ORDERABLES Final Resul t [facility] [address] [place] [address], from Last 3 Months Insurance MEDICARE Care Teams Institutional Commodity Analyst Relationship Specialty Start Date End Date Marita Wetzel DO [address] [place] [address] PCP - General 01/09/23
--- OUTSIDE RECORDS SUMMARY | 2024-07-27 11:40 | XMS_ITS | Encounter Summary ---
Author Organization [facility] Address [address] [place] [address] Care Team Providers Care Electrical Estimator Name Role Phone Marita Wetzel DO Primary Care Provider +1- [phone] Encounter Details Date Type Department Care Team (Late st Contact Info) Description 03/15/2024 Lab Requisition [facility] - Main Lab [address] [facility] [place] [phone] Catalina Burr MD [address] [place] [address] Acute kidney failure, unspecified (CMS/HCC); Chronic embolism [...] vein documented in this encounter Care Teams Electrical Estimator Relationship Specialty Start Date End Date Marita Wetzel DO [address] [place], [place] PCP - General 01/09/23 documented as of this encounter
--- OUTSIDE RECORDS SUMMARY | 2024-07-27 11:40 | XMS_ITS | Encounter Summary ---
Author Organization [facility], Address [address] [place] [phone] Phone Care Team Providers Care Weaver Hand Loom Name Role Phone Marita Wetzel DO Primary Care Provider Unava ilable Reason for Visit * Reason Comments Med Refill Encounter Details Date Type Department Care Team (Late Contact Info) Description 06/18/2024 Refill [facility] [address] [place] [phone] Srinvias Agrawal MD [address] [place] [address] [place] [phone] Social History Tobacco Use Types [...] Only [facility], - Vascular Access Center [address] [place] [address] [place] [phone] documented as of this encounter Procedures Procedure Name Priority Date/Time Associated Diagnosis Comments HD KINETICS Routine 06/18/2024 POST CHEMISTRY Routine 06/18/2024 IMMUNO CHEMISTRY Routine 06/18/2024 HEMATOLOGY Routine 06/18/2024 CHEMISTRY Routine 06/18/2024 CHEMISTRY Routine 06/18/2024 [facility] RESULTS Routine 06/18/2024 documented in this encounter Results * [facility] Results (06/18/2024) eKt/V (Tattersall) 1.28 Knowledge Center WSTDKT/V 0.8 Knowledge Center spKt/V (Daugirdas II) 1.50 Knowledge Center 06/18/2024 06/18/2024 [facility] [place] LAB BLOOD ORDERABLES Final Result [facility] Contact Performing lab Unknown, [place] * HD KINETICS (06/18/2024) Pathologist [facility] % Urea Reduction 70 65 - 80 % [facility] 06/18/2024 06/22/2024 9:5 5 AM EST Narrative Resulting Agency Comment Specimen source: Plasma Srinivas Agrawal MD LAB BLOOD ORDERABLES Final Result [facility] See order comments or contact performing lab Unknown, [place] * POST CHEMISTRY (06/18/2024) BUN Post Dialysis 13 6 - 19 mg/dL [facility] 06/18/2024 06/22/2024 9:5 5 AM EST Narrative [facility] - 06/22/2024 Unless otherwise specified, test(s) performed at: [facility], [address] [place], [place] [id number] GENERAL FARMWORKER: Dwayne Fuentes M.D. For any questions, please call customer service at FREQUENCY:MONTHLY Resulting Agency Comment Specimen source: Plasma Srinivas Agrawal MD LAB BLOOD ORDERABLES Final Result [facility] See order comments or contact performing lab Unknown, [place] * IMMUNO CHEMISTRY (06/18/2024) Pathologist [facility] Hep B Surface Ag Negative Negative [facility] 06/18/2024 06/19/2024 11: 21 AM EST Narrative Resulting Agency Comment Specimen source: Serum Srinivas Agrawal MD LAB BLOOD ORDERABLES Final Result Performing Organization Address City/[facility]/ZIP Co de Phone Number [facility] See order comments or contact performing lab Unknown, [place] * (ABNORMAL) [facility] Chemistry (06/18/2024) Pathologist [facility] BUN 44(H) 6 - 19 mg/dL [facility] [...] Labs Ferritin 1,648(H) 10 - 291 ng/mL [facility] 06/18/2024 06/19/2024 11: 21 AM EST Narrative [facility] - 06/19/2024 Unless otherwise specified, test(s) performed at: [facility], [address] [place], [place] [id number] GENERAL FARMWORKER: Dwayne Fuentes M.D. For any questions, please call customer service at FREQUENCY:MONTHLY Resulting Agency Comment Specimen source: Serum Srinivas Agrawal MD LAB BLOOD ORDERABLES Edite d Result - Final Performing Organization Address City/[facility]/ZIP Co de Phone Number [email or web address] See order comments or contact performing lab Unknown, [place] * (ABNORMAL) HEMATOLOGY (06/18/2024) Hemoglobin 7.9(L) 12.0 - 16.0 g/dL [facility] Hemoglobin x 3 23.7(L) 36.0 - 48.0 % [facility] 06/18/2024 06/19/2024 12: 24 PM EST Narrative [facility] - 06/19/2024 Unless otherwise specified, test(s) performed at: [facility], [address] [place] [address] GENERAL FARMWORKER: Dwayne Fuentes M.D. For any questions, please call customer service at FREQUENCY:MONTHLY Resulting Agency Comment Specimen source: Blood Srinivas Agrawal MD LAB BLOOD ORDERABLES Final Result Performing Organization Address [facility] de Phone Number [email or web address] See order comments or contact performing lab Unknown, [place] * (ABNORMAL) [facility] Chemistry (06/18/2024) PTH 145(H) 16 - 80 pg/mL [facility] 06/18/2024 06/19/2024 11: 40 AM EST Narrative [facility] - 06/19/2024 Unless otherwise specified, test(s) performed at: [facility], [address] [place] [address] GENERAL FARMWORKER: Dwayne Fuentes M.D. For any questions, please call customer service at FREQUENCY:MONTHLY Resulting Agency Comment Specimen source: Plasma us Srinivas Agrawal MD LAB BLOOD ORDERABLES Final Result [facility] See order comments or contact performing lab Unknown, [place] documented in this encounter Visit Diagnoses Not on filedocumented in this encounter Care Teams Weaver Hand Loom Relationship Specialty Start Date End Date Marita Wetzel DO [address] [place] [address] PCP - General Family Medicine 11/14/22 documented as of this encounter
--- OUTSIDE RECORDS SUMMARY | 2024-07-27 11:40 | XMS_ITS | Encounter Summary ---
Author Organization [facility] Address [address] [place] [address] Care Team Providers Care Lead Maintenance Technician Name Role Phone Marita Wetzel Primary Care Provider +1- [phone] Encounter Details Date Type Department Care Team (Late st Contact Info) Description 03/29/2024 Lab Requisition [facility] - Main Lab [address] [facility] [place] [address] Catalina Burr MD [address] [place] [address] End stage renal disease (CMS/HCC) Social History [...] developed and the performance characteristics determined by [facility]. This confirmation testing has not been cleared or approved by the FDA. The laboratory is regulated under CLIA as qualified to perform high-complexity testing. This test is used for patient testing purposes. It should not be regarded as investigational or for research. Test performed at [facility], [facility] [place], [place] ??[address] ? [phone] Ashtyn Leigh MD, PhD - Photographs Curator Blood Venous blood specimen / Unknown Venipuncture / Unknown 03/29/2024 6:53 AM EST 03/29/2024 8:32 AM EST us Catalina Burr MD LAB BLOOD ORDERABLES Final Resul t [place] [address] * (ABNORMAL) Renal function panel (03/29/2024 6:53 AM EST) Sodium 140 133 - 145 mmol/L LAB CHEMISTRY METHOD 03/29/2024 10:07 AM [facility] Potassium 3.9 3.5 - 5.5 mmol/L LAB CHEMISTRY METHOD 03/29/2024 10:07 AM [facility] Chloride 109 96 - 110 mmol/L LAB CHEMISTRY METHOD 03/29/2024 10:07 AM [facility] CO2 20(L) 21 - 32 mmol/L LAB CHEMISTRY METHOD 03/29/2024 10:07 AM [facility] Anion Gap 11 3 - 11 LAB CHEMISTRY METHOD 03/29/2024 10:07 AM [facility] Glucose 146(H) 70 - 100 mg/dL LAB CHEMISTRY METHOD 03/29/2024 10:07 AM [facility] BUN 42(H) 5 - 25 mg/dL LAB CHEMISTRY METHOD 03/29/2024 10:07 AM [facility] Creatinine 3.47(H) 0.50 - 1.10 mg/dL LAB CHEMISTRY METHOD 03/29/2024 10:07 AM [facility] eGFR 14(L) >=60 mL/min/1. 73m2 LAB CHEMISTRY METHOD 03/29/2024 10:07 AM [facility] Comment:Calculation based on the??Chronic Kidney Disease Epidemiology Collaboration (CKD-EPI) equation refit??without adjustment for race. BUN/Creatinine Ratio 12.1 LAB CHEMISTRY METHOD 03/29/2024 10:07 AM [facility] Albumin 2.0(L) 3.2 - 5.0 g/dL LAB CHEMISTRY METHOD 03/29/2024 10:07 AM [facility] Calcium 8.8 8.5 - 10.5 mg/dL LAB CHEMISTRY METHOD 03/29/2024 10:07 AM [facility] Phosphorus 2.5 2.5 - 4.5 mg/dL LAB CHEMISTRY METHOD 03/29/2024 10:07 AM [facility] Blood Venous blood specimen / Unknown Venipuncture / Unknown 03/29/2024 6:53 AM EST 03/29/2024 8:32 AM EST us Catalina Burr MD LAB BLOOD ORDERABLES Final Resul t [facility] [address] [place] [address], * (ABNORMAL) Complete blood count (03/29/2024 6:53 AM EST) WBC 11.0(H) 4.8 - 10.8 K/mcL LAB HEMETOLOGY METHOD 03/29/2024 9:47 AM [facility] RBC 2.80(L) 3.80 - 4.80 M/mcL LAB HEMETOLOGY METHOD 03/29/2024 9:47 AM [facility] Hemoglobin 7.7(L) 11.5 - 16.0 g/dL LAB HEMETOLOGY METHOD 03/29/2024 9:47 AM [facility] Hematocrit 27.0(L) 35.0 - 47.0 % LAB HEMETOLOGY METHOD 03/29/2024 9:47 AM [facility] MCV 97.8 79.0 - 98.0 FL LAB HEMETOLOGY METHOD 03/29/2024 9:47 AM [facility] MCH 27.9 27.0 - 32.0 pcg LAB HEMETOLOGY METHOD 03/29/2024 9:47 AM [facility] MCHC 28.5(L) 32.0 - 37.0 g/dL LAB HEMETOLOGY METHOD 03/29/2024 9:47 AM EST [facility] RDW 17.5(H) 11.0 - 15.0 % LAB HEMETOLOGY METHOD 03/29/2024 9:47 AM [facility] Platelets 301 130 - 400 K/mcL LAB HEMETOLOGY METHOD 03/29/2024 9:47 AM [facility] MPV 10.3 7.0 - 11.0 FL LAB HEMETOLOGY METHOD 03/29/2024 9:47 AM EST [facility] NRBC 0.0 <1.0 % LAB HEMETOLOGY METHOD 03/29/2024 9:47 AM [facility] NRBC Absolute 0.00 <0.10 K/mcL LAB HEMETOLOGY METHOD 03/29/2024 9:47 AM [facility] Blood Venous blood specimen / Unknown Venipuncture / Unknown 03/29/2024 6:53 AM EST 03/29/2024 8:32 AM EST us Catalina Burr MD LAB BLOOD ORDERABLES Final Resul t [facility] [address] [place] [address], documented in this encounter Visit Diagnoses Diagnosis End stage renal disease (CMS/[facility]) End stage renal disease documented in this encounter Care Teams Lead Maintenance Technician Relationship Specialty Start Date End Date Marita Wetzel DO [address] [place] [address] PCP - General 01/09/23 documented as of this encounter
--- OUTSIDE RECORDS SUMMARY | 2024-07-27 11:40 | XMS_ITS | Encounter Summary ---
Author Organization [facility] Address [address] [place] [address] Care Team Providers Care Manager Wind Name Role Phone Mary JaneMarita yousif Primary Care Provider +1- [phone] Encounter Details Date Type Department Care Team (Late st Contact Info) Description 03/19/2024 Lab Requisition [facility] - Main Lab [address] [facility] [place] [address] Catalina Burr MD [address] [place] [address] Chronic embolism and thrombosis of unspecified vein; [...] developed and the performance characteristics determined by [facility]. This confirmation testing has not been cleared or approved by the FDA. The laboratory is regulated under CLIA as qualified to perform high-complexity testing. This test is used for patient testing purposes. It should not be regarded as investigational or for research. Test performed at [facility], [address], [place], [place] ??[address] ? [phone] Ashtyn Leigh MD, PhD - Turbine Operator Blood Venous blood specimen / Unknown Venipuncture / Unknown 03/22/2024 6:50 AM EST 03/22/2024 8:05 AM EST us Catalina Burr MD LAB BLOOD ORDERABLES Final Resul t [facility] [address] [place] [address] * (ABNORMAL) Renal function panel (03/22/2024 6:50 AM EST) Sodium 138 133 - 145 mmol/L LAB CHEMISTRY METHOD 03/22/2024 8:55 AM [facility] Potassium 4.6 3.5 - 5.5 mmol/L LAB CHEMISTRY METHOD 03/22/2024 8:55 AM [facility] Chloride 107 96 - 110 mmol/L LAB CHEMISTRY METHOD 03/22/2024 8:55 AM [facility] CO2 20(L) 21 - 32 mmol/L LAB CHEMISTRY METHOD 03/22/2024 8:55 AM [facility] Anion Gap 11 3 - 11 LAB CHEMISTRY METHOD 03/22/2024 8:55 AM [facility] Glucose 158(H) 70 - 100 mg/dL LAB CHEMISTRY METHOD 03/22/2024 8:55 AM [facility] BUN 51(H) 5 - 25 mg/dL LAB CHEMISTRY METHOD 03/22/2024 8:55 AM [facility] Creatinine 4.91(H) 0.50 - 1.10 mg/dL LAB CHEMISTRY METHOD 03/22/2024 8:55 AM [facility] eGFR 9(L) >=60 mL/min/1. 73m2 LAB CHEMISTRY METHOD 03/22/2024 8:55 AM [facility] Comment:Calculation based on the??Chronic Kidney Disease Epidemiology Collaboration (CKD-EPI) equation refit??without adjustment for race. BUN/Creatinine Ratio 10.4 LAB CHEMISTRY METHOD 03/22/2024 8:55 AM EST [facility] Albumin 2.1(L) 3.2 - 5.0 g/dL LAB CHEMISTRY METHOD 03/22/2024 8:55 AM [facility] Calcium 9.0 8.5 - 10.5 mg/dL LAB CHEMISTRY METHOD 03/22/2024 8:55 AM [facility] Phosphorus 3.4 2.5 - 4.5 mg/dL LAB CHEMISTRY METHOD 03/22/2024 8:55 AM [facility] Blood Venous blood specimen / Unknown Venipuncture / Unknown 03/22/2024 6:50 AM EST 03/22/2024 8:05 AM EST us Catalina Burr MD LAB BLOOD ORDERABLES Final Resul t [facility] [address] [place] [address], [place] [phone] * (ABNORMAL) Complete blood count (03/22/2024 6:50 AM EST) WBC 10.4 4.8 - 10.8 K/mcL LAB HEMETOLOGY METHOD 03/22/2024 8:32 AM [facility] RBC 2.80(L) 3.80 - 4.80 M/mcL LAB HEMETOLOGY METHOD 03/22/2024 8:32 AM [facility] Hemoglobin 7.9(L) 11.5 - 16.0 g/dL LAB HEMETOLOGY METHOD 03/22/2024 8:32 AM [facility] Hematocrit 27.8(L) 35.0 - 47.0 % LAB HEMETOLOGY METHOD 03/22/2024 8:32 AM [facility] MCV 98.6(H) 79.0 - 98.0 FL LAB HEMETOLOGY METHOD 03/22/2024 8:32 AM EST [facility] MCH 28.0 27.0 - 32.0 pcg LAB HEMETOLOGY METHOD 03/22/2024 8:32 AM EST [facility] MCHC 28.4(L) 32.0 - 37.0 g/dL LAB HEMETOLOGY METHOD 03/22/2024 8:32 AM EST [facility] RDW 17.8(H) 11.0 - 15.0 % LAB HEMETOLOGY METHOD 03/22/2024 8:32 AM EST [facility] Platelets 218 130 - 400 K/mcL LAB HEMETOLOGY METHOD 03/22/2024 8:32 AM [facility] MPV 10.7 7.0 - 11.0 FL LAB HEMETOLOGY METHOD 03/22/2024 8:32 AM EST [facility] NRBC 0.0 <1.0 % LAB HEMETOLOGY METHOD 03/22/2024 8:32 AM [facility] NRBC Absolute 0.00 <0.10 K/mcL LAB HEMETOLOGY METHOD 03/22/2024 8:32 AM [facility] Blood Venous blood specimen / Unknown Venipuncture / Unknown 03/22/2024 6:50 AM EST 03/22/2024 8:05 AM EST us Catalina Burr MD LAB BLOOD ORDERABLES Final Resul t [facility] [address] [place] [address], [place] [phone] documented in this encounter Visit Diagnoses Diagnosis Chronic embolism and thrombosis of unspecified vein Acute kidney failure, unspecified (CMS/HCC) Acute kidney failure, unspecified Type 2 diabetes mellitus without complications documented in this encounter Care Teams Manager Wind Relationship Specialty Start Date End Date Marita Wetzel DO [address] [place] [address] PCP - General 01/09/23 documented as of this encounter
--- OUTSIDE RECORDS SUMMARY | 2024-07-27 11:40 | XMS_ITS | Encounter Summary ---
Author Organization [facility] Address [address] [place] [address] Care Team Providers Care Finish Carpenter Name Role Phone Mary JaneMarita yousif Primary Care Provider [phone]- [phone] Encounter Details Date Type Department Care Team (Late st Contact Info) Description 03/30/2024 Lab Requisition [facility] - Main Lab [address] [facility] [place] [address] Catalina Burr MD [address] [place] [address] Chronic embolism and thrombosis of unspecified vein; [...] CHEMISTRY METHOD 03/31/2024 12:06 PM EST [facility] Blood Venous blood specimen / Unknown Venipuncture / Unknown 03/31/2024 9:23 AM EST 03/31/2024 11:25 AM EST Catalina Burr MD LAB BLOOD ORDERABLES Final Resul t Performing Organization Address [facility]/ZIP Co de Phone Number [facility] [address] [place] [address], [place] [phone] * (ABNORMAL) Ferritin (03/31/2024 9:23 AM EST) Ferritin 6,203(H) 8 - 252 ng/mL LAB CHEMISTRY METHOD 03/31/2024 12:10 PM EST [facility] Blood Venous blood specimen / Unknown Venipuncture / Unknown 03/31/2024 9:23 AM EST 03/31/2024 11:25 AM EST Catalina Burr MD LAB BLOOD ORDERABLES Final Resul t Performing Organization Address [facility]/ZIP Co de Phone Number [facility] [address] [place] [address], [place] [phone] documented in this encounter Visit Diagnoses Diagnosis Chronic embolism and thrombosis of unspecified vein Acute kidney failure, unspecified (CMS/HCC) Acute kidney failure, unspecified documented in this encounter Care Teams Finish Carpenter Relationship Specialty Start Date End Date Marita Wetzel DO [address] [place] [address] PCP - General 01/09/23 documented as of this encounter
--- OUTSIDE RECORDS SUMMARY | 2024-07-27 11:40 | XMS_ITS | Encounter Summary ---
Author Organization [facility], Address [address] [place] [address] Phone Care Team Providers Care Hospital Supervisor Name Role Phone Marita Wetzel DO Primary Care Provider Unava ilable Reason for Visit * Reason Comments Med Refill Encounter Details Date Type Department Care Team (Late Contact Info) Description 05/08/2021 Refill [facility] [address] [place] [id number] Bernardo Doty MD [address] [place] [address] [place] [address] Social History Tobacco Use Types [...] Only [facility] - [facility] [address] [place] [address] [place] [address] documented as of this encounter Visit Diagnoses Not on filedocumented in this encounter Care Teams Hospital Supervisor Relationship Specialty Start Date End Date Marita Wetzel DO [address] [place] [id number] PCP - General Family Medicine 7/27/23 documented as of this encounter
--- OUTSIDE RECORDS SUMMARY | 2024-07-27 11:40 | XMS_ITS | Encounter Summary ---
Author Organization [facility] Address [address] [place] [address] Care Team Providers Care In Flight Technician Name Role Phone Marita Wetzel Primary Care Provider [phone]- [phone] Encounter Details Date Type Department Care Team (Late st Contact Info) Description 02/25/2024 Lab Requisition [facility] - Main Lab [address] [facility] [place] [address] Catalina Burr MD [address] [place] [address] Chronic embolism and thrombosis of unspecified vein; [...] Travel phlebotomy fee (02/25/2024 6:30 AM EST) [facility] TRAVEL PHLEBOTOMY FEE Completed 02/25/2024 11:01 AM EST [facility] Blood Venous blood specimen / Unknown Venipuncture / Unknown 02/25/2024 6:30 AM EST 02/25/2024 10:25 AM EST us Catalina Burr MD LAB BLOOD ORDERABLES Final Resul t [facility] [address] [place] [address], * (ABNORMAL) Tacrolimus level (02/25/2024 6:30 AM [...] or for research. Test performed at [facility], [address] , [place], [place] ??[address] ? [phone] Ashtyn Leigh MD, PhD - Copyright Expert Blood Venous blood specimen / Unknown Venipuncture / Unknown 02/25/2024 6:30 AM EST 02/25/2024 10:25 AM EST us Catalina Burr MD LAB BLOOD ORDERABLES Final Resul t [facility] [address] [place] [address] documented in this encounter Visit Diagnoses Diagnosis Chronic embolism and thrombosis of unspecified vein Acute kidney failure, unspecified (CMS/HCC) Acute kidney failure, unspecified documented in this encounter Care Teams In Flight Technician Relationship Specialty Start Date End Date Marita Wetzel DO [address] [place] [address] PCP - General 01/09/23 documented as of this encounter
--- OUTSIDE RECORDS SUMMARY | 2024-07-27 11:40 | XMS_ITS | Clinical Summary ---
Author Organization [employer] Address [address] [place] [address] 7 [place] [address] Care Team Providers Care Pipe And Boiler Covers Supervisor Name Role Phone DevendraMarita perez Primary Care Provider + [phone] Allergies Active Allergy Reactions Criticality Noted Date Comments Codeine Hives High 11/12/2011 Other reaction(s): FAINTING/HIVES Oxycodone 07/30/2022 Oxycodone-Acetaminophen Hives High 10/05/2012 Other reaction(s): Nausea / Vomiting Medications * This document contains information received from the source organization and may not represent a complete record from that organization. Continuous Blood Gluc Drill Press Operator Numerical Control ([employer] Seema 2 Nixon) device 05/07/19 23 Active dorzolamide-ti molol (Cosopt) [...] (one) time each day. 04/10/20 23 Active folic acid (Folvite) 1 MG tablet Take 1 tablet by mouth 1 (one) time each day. 04/10/20 23 Active cyanocobalamin (Vitamin B-12) 1000 MCG tablet Take 1 tablet by mouth in the morning. Active Continuous Blood Gluc Sensor (FreeStyle Seema 2 Sensor) [facility] Use as directed Active mycophenolate (Myfortic) 360 [...] 4 times daily. 10/10/19 24 Active Procrit 51979 UNIT/ML injection 12/09/19 24 Active insulin glargine [...] ANXIETY 30 capsule 1 06/17/19 25 Active carvedilol (Coreg) 25 MG tablet TAKE 1 TABLET BY MOUTH EVERY DAY IN THE MORNING AND IN THE EVENING WITH MEALS 90 tablet 07/23/19 25 Active carvedilol (Coreg) 25 MG tablet TAKE 1 TABLET BY MOUTH EVERY DAY IN THE MORNING AND IN THE EVENING WITH MEALS 04/10/20 23 025 Discontinued(Re order (will not trigger notification [...] Encounters Date Type Department Care Team Description 07/21/2024 Refill [facility] [place] [address] Marita Wetzel DO 07/19/2024 Telephone [facility] [place] [address] Marita Wetzel DO Results 07/06/[address] [address] Marita Wetzel DO Medication Question 07/01/2024 Orders Only GENERIC EXTERNAL DATA DEPARTMENT Provider, Generic External Data 06/25/2024 Telephone [facility] [place] [address] Marita Wetzel DO Nurse Triage 06/25/[address] [address] Marita Wetzel DO Med Refill 06/22/[address] [address] Marita Wetzel DO Medication Question 06/17/[address] [address] Marita Wetzel DO 06/11/2024 Patient Outreach [address] [address] Marita Wetezl DO Transition Of Care (Tcm) (HDF unscheduled) 06/11/[address] [address] Marita Wetzel DO Hospital Follow-up 05/27/2024 Orders Only GENERIC EXTERNAL DATA DEPARTMENT Provider, Generic External Data 05/07/2024 Telephone [facility] [place] [address] Renetta Romo MA Recall Letter (Recall Letter sent 05/07/24) from Last 3 Months Immunizations Name Administration Dates Next Due Hep B, adult 10/02/2021,,08/03/2021,07/04,05/31/2021,03/04/2017,05/09/2016 ,04/11/2016 HepB-CpG 10/01/2021, 2,07/04/2021,05/31 Influenza injectable quadriv [...] Office Visit [facility] [address] [place] [address] Marita Wetzel DO [address] [place] [address] Health Maintenance Due Date Last Done Comments [...] Result Component 5.9( 9:43 AM EDT) No Puia, Carmen, PharmD Record your blood sugar as directed Result Component No Puia, Carmen, PharmD Note: Use CGM, ensuring sensor is scanned at least once every 8 hours to capture 24H data. Check BG manually, as directed. 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 [facility] ?[address] ?[place] [address] ?XRay Report ? Signed ? Patient: Alix Sharp ?MR#: [id number] ?? 43 ? : 1960 ?Acct:[id number] ? Age/Sex: 64 / F ?ADM Date: 07/07/24 ? Loc: HO.XRAY ? Attending Dr: Kim Katz MD ? Ordering Physician: Kim Katz MD ?? Date of Service: 07/07/24 ?? Procedure(s): XR chest 2V ?? Accession Number(s): [id number] ? cc: Kim Katz MD; Marita Wetzel DO ? EXAMINATION: ??XR CHEST 2 VIEWS ? HISTORY: A43.9 - Nocardiosis, unspecified ? COMPARISON: Comparison is made with the prior examination dated ?? 06/03/2024. ? FINDINGS: ??PA and lateral views of the chest are submitted. A ?? right-sided port is unchanged in position. There is prominence of the ?? pulmonary vasculature. ??There is a small right pleural effusion which ?? is larger than on the prior study. Patchy opacity in the right lower ?? lung zone may represent pneumonia. The left lung is clear. ??The heart ?? remains enlarged. The aorta is calcified. ??The bones are intact. ? XR/XR chest 2V ?? IMPRESSION: ?? Cardiomegaly. Pulmonary vascular congestion and small right pleural ?? effusion. Right lower lobe pneumonia. ? Electronically signed by: ??Db Berry MD ??07/08/2024 08:23 AM EDT ?? RP ? Dictated By: ?Db Berry MD ? Signed By: ?<Electronically signed by Db Berry MD in OV> ?07/08/24 0823 ? DD/ 1414 ? TD/TT: 07/07/24 1533 ? Marketing Analytics Specialist: ? Procedure Note Dondanie, Image - 07/08/[address] [address] XRay Report Signed Patient: Alix Sharp BMR#: [id number] 43 : 1960cct:[id number] Age/Sex: 64 / FADM Date: 07/07/24 Loc: HO.XRAY Attending Dr: Kim Katz MD Ordering Physician: Kim Katz MD Date of Service: 07/07/24 Procedure(s): XR chest 2V Accession Number(s): [id number] cc: Kim Katz MD; Marita Wetzel DO EXAMINATION: XR CHEST 2 VIEWS HISTORY: A43.9 - Nocardiosis, unspecified COMPARISON: Comparison is made with the prior examination dated 06/03/2024. FINDINGS: PA and lateral views of the chest are submitted. A right-sided port is unchanged in position. There is prominence of the pulmonary vasculature. There is a small right pleural effusion which is larger than on the prior study. Patchy opacity in the right lower lung zone may represent pneumonia. The left lung is clear. The heart remains enlarged. The aorta is calcified. The bones are intact. XR/XR chest 2V IMPRESSION: Cardiomegaly. Pulmonary vascular congestion and small right pleural effusion. Right lower lobe pneumonia. Electronically signed by: bD Berry MD 07/08/2024 08:23 AM EDT Dictated By: Db Berry MD Signed By: <Electronically signed by Db Berry MD in OV> 07/08/24 0823 DD/ 1414 TD/TT: 07/07/24 1533 Marketing Analytics Specialist: us [facility] External Provider IMG XR PROCEDURES Edited Result - Final * XR Chest 1 View (06/04/2024 5:19 AM EST) Only the most recent of2 resultswithin the time period is included. Anatomical Region Laterality Modality Chest Radiographic Lily ging 06/04/2024 5:19 AM EST Narrative 06/04/2024 5:20 AM EST ? [facility] ?[address] ?[place] [address] ?XRay Report ? Signed ? Patient: West,Alix B ?MR#: [id number] ?? 43 ? : 1960 ?Acct:[id number] ? Age/Sex: 64 / F ?ADM Date: 05/28/24 ? Loc: HO.IMC ?477-1 ? Attending Dr: Malik Orozco MD ? Ordering Physician: Nirav Osborn MD ?? Date of Service: 06/03/24 ?? Procedure(s): XR chest 1V ?? Accession Number(s): [id number] ? cc: Marita Wetzel DO; Nirav Osborn [...] DD/ 0519 ? TD/TT: 06/04/24 0519 ? Marketing Analytics Specialist: ? Procedure Note Juanita, Image - 06/04/2024 [facility] [address] [place] [address] XRay Report Signed Patient: Alix Sharp BMR#: [id number] 43 : 1960cct:[id number] Age/Sex: 64 / FADM Date: 05/28/24 Loc: [facility] 477-[address]: Malik Orozco MD Ordering Physician: Nirav Osborn MD Date of Service: 06/03/24 Procedure(s): XR chest 1V Accession Number(s): [id number] cc: Marita Wetzel DO; Nirav Osborn MD [...] in OV> 06/04/2420 DD/ 8 TD/TT: 06/04/24518 Marketing Analytics Specialist: [facility] External Provider IMG XR PROCEDURES Final Result * CT Chest w/ Contrast (05/31/2024 7:00 AM EST) Anatomical Region Laterality Modality Body, Chest Computed Tomogra phy 05/31/2024 7:00 AM EST Narrative 05/31/2024 9:38 AM EST ? [facility] ?[address] ?[place] [address] ? CT Scan Report ? Signed ? Patient: West,Alix B ?MR#: [id number] ?? 43 ? : 1960 ?Acct:[id number] ? Age/Sex: 64 / F ?ADM Date: 05/28/ ? Loc: HO.IMC ?477-1 ? Attending Dr: Ab Barba MD ? Ordering Physician: Malik Orozco MD ?? Date of Service: 05/31/24 ?? Procedure(s): CT chest w IV con ?? Accession Number(s): [id number] ? cc: Malik Orozco MD; Marita Wetzel DO ? Report Number: ?? [id number]: Total DLP = ??187.00 mGy-cm ?? EXAMINATION: [...] DD/ 0700 ? TD/TT: 05/31/24 0905 ? Marketing Analytics Specialist: ? Procedure Note Juanita, Image - 05/31/[address] [place] [address] [address] Scan Report Signed Patient: Alix Sharp BMR#: [id number] 43 : 1960cct:[id number] Age/Sex: 64 / FADM Date: 05/28/24 Loc: [facility] 477-[address]: Ab Barba MD Ordering Physician: Malik Orozco MD Date of Service: 05/31/24 Procedure(s): CT chest w IV con Accession Number(s): [id number] cc: Malik Orozco MD; Marita Wetzel DO Report Number: [id number]: Total DLP = 187.00 mGy-cm EXAMINATION: CT [...] signed by Timmy Fajardo MD in OV> 05/31/24934 DD/ 9 TD/TT: 05/31/24904 Marketing Analytics Specialist: [facility] External Provider IMG CT PROCEDURES Edited Result - Final * Mr Brain w/ and w/o Contrast (05/30/2024 2:27 PM EST) Anatomical Region Laterality Modality Brain Magnetic Resonan ce 05/30/2024 2:27 PM EST Narrative 05/30/2024 2:30 PM EST ? [facility] ?[address] ?[place] [address] ? Magnetic Resonance Report ? Signed with Addenda ? Patient: West,Alix B ?MR#: [id number] ?? 43 ? : 1960 ?Acct:[id number] ? Age/Sex: 64 / F ?ADM Date: 05/28/24 ? Loc: HO.IMC ?477-1 ? Attending Dr: Malik Orozco MD ? Ordering Physician: Malik Orozco MD ?? Date of Service: 05/30/24 ?? Procedure(s): MR head/brain wo/w con ?? Accession Number(s): [id number] ? cc: Malik Orozco MD; Marita Wetzel [...] by Codie Suggs MD in OV> ? 05/30/24 1451 ?? Addendum Cosigned By: ? DD/ /13/1427 [...] ? DD/ 26 ? TD/TT: 05/30/241426 ? Marketing Analytics Specialist: ? Procedure Note Delvis Grant - 05/30/[address] [address] Magnetic Resonance Report Signed with Daniel Patient: Alix Sharp BMR#: [id number] 43 : 1960cct:[id number] Age/Sex: 64 / FADM Date: 05/28/24 Loc: [facility] 477-[address]: Malik Orozco MD Ordering Physician: Malik Orozco MD Date of Service: 05/30/24 Procedure(s): MR head/brain wo/w con Accession Number(s): [id number] cc: Malik Orozco MD; Marita Wetzel DO [...] in OV> 05/30/24 1429 DD/ 26 TD/TT: 05/30/24 142 Marketing Analytics Specialist: [facility] External Provider IMG MRI PROCEDURES Edited Result - Final * VASC Carotid Artery Duplex Bilateral (05/30/2024 1:41 PM EST) 05/30/2024 1:41 PM EST Narrative [facility] - 05/31/2024 8:14 AM EST ? [facility] ?[address] ?[place] [address] ? Ultrasound Report ? Signed ? Patient: Aron,Alix B ?MR#: [id number] ?? 43 ? : 1960 ?Acct:[id number] ? Age/Sex: 64 / F ?ADM Date: 05/28/ ? Loc: HO.IMC ?477-1 ? Attending Dr: Ab Barba MD ? Ordering Physician: Malik Orozco MD ?? Date of Service: 05/30/24 ?? Procedure(s): US carotid duplex BI ?? Accession Number(s): [id number] ? cc: Malik Orozco MD; Marita Wetzel [...] ??Db Berry MD ??05/31/2024 08:12 AM EST ?? RP ? Dictated By: ?Db Berry MD ? Signed By: ?<Electronically signed by Db Berry MD in OV> ?05/31/24 0812 ? DD/ 1341 ? TD/TT: 05/30/24 1352 ? Marketing Analytics Specialist: ? Procedure Note Delvis Grant - 05/31/2024 [place] [address] [place] [address] Ultrasound Report Signed Patient: Alix Sharp BMR#: [id number] 43 : 1Acct:[id number] Age/Sex: 64 / FADM Date: 05/28/24 Loc: [facility] 477-[address]: Ab Barba MD Ordering Physician: Malik Orozco MD Date of Service: 05/30/24 Procedure(s): US carotid duplex BI Accession Number(s): [id number] cc: Malik Orozco MD; Marita Wetzel DO [...] by: Db Berry MD 05/31/2024 08:12 AM [facility] Dictated By: Db Berry MD Signed By: <Electronically signed by Db Berry MD in OV> 05/31/24 0812 DD/ 1341 TD/TT: 05/30/24 1352 Marketing Analytics Specialist: us [facility] External Provider CV VASC ULAR PROCEDURES Edited Result - Final [facility] [address] [place] [address] * CT Head Stroke w/o Contrast (05/30/2024 11:28 AM EST) Anatomical Region Laterality Modality Computed Tomogra phy 05/30/2024 11:2 8 AM EST Narrative 05/30/2024 11:30 AM EST ? [facility] ?[address] ?[place] [address] ? CT Scan Report ? Signed with Addenda ? Patient: Alix Sharp ?MR#: [id number] ?? 43 ? : 1960 ?Acct:[id number] ? Age/Sex: 64 / F ?ADM Date: 05/28/24 ? Loc: HO.IMC ?477-1 ? Attending Dr: Malik Orozco MD ? Ordering Physician: Malik Orozco MD ?? Date of Service: 05/30/24 ?? Procedure(s): CT head for STROKE ?? Accession Number(s): [id number] ? cc: Malik Orozco MD; Marita Wetzel DO ? Report Number: ?? [id number]: Total DLP = ??749.00 mGy-cm ?ADDENDUM ?? [...] Yoni Beaver MD in OV> ? 05/30/24 1138 ?? Addendum Cosigned By: ? DD/ /14/1128 ? TD/TT: 05/30/2401/13/1137 ? CLINICAL HISTORY: LUE weakness ? CT head without contrast. ? Comparison: CT/SR - CT HEAD/BRAIN WO IV CON - 05/27/24 20:50 EST ?? CT/REG/SR - CT HEAD/BRAIN WO CON - 11/29/21 09:45 EDT ?? CT/SR - BRAIN WO IV CONTRAST 99125 - 09/16/18 13:47 EDT ? Findings: ?? [...] DD/ 1128 ? TD/TT: 05/30/24 1128 ? Marketing Analytics Specialist: ? Procedure Note Pergregclifrocio, Image - 05/30/[address] [place] [address] [address] Scan Report Signed with Daniel Patient: Alix Sharp BMR#: [id number] 43 : 1960cct:[id number] Age/Sex: 64 / FADM Date: 05/28/24 Loc: [facility] 477-[address]: Malik Orozco MD Ordering Physician: Malik Orozco MD Date of Service: 05/30/24 Procedure(s): CT head for STROKE Accession Number(s): [id number] cc: Malik Orozco MD; Marita Wetzel DO Report Number: [id number]: Total DLP = 749.00 mGy-cm ADDENDUM This document has been electronically signed by: Yoni Beaver MD on 05/30/2024 11:28:55 ADDENDUM: This report was discussed with Pam Gan on May 30, 2024 11:37:00 EST. This [...] EDT CT/SR - BRAIN WO IV CONTRAST 40333 - 09/16/18 13:47 EDT Findings: Findings concerning [...] by Yoni Beaver MD in OV> 05/30/24 113 DD/ 27 TD/TT: 05/30/248 Marketing Analytics Specialist: [facility] External Provider IMG CT PROCEDURES Edited Result - Final * (ABNORMAL) Basic Metabolic Panel (05/27/2024 11:34 PM EST) Sodium 135 135 - 145 mmol/L [facility] Potassium 6.1(HH) 3.3 - 5.1 mmol/L [facility] Comment:Critical value for t est(s): POTS Results called to and readback by: ELICEO Person calling: SALIERD Date:05/27/24 Time:2359 Chloride 104 96 - 108 mmol/L [facility] Carbon Dioxide 23 22 - 29 mmol/L [facility] Anion Gap 14 12 - 20 [facility] Urea Nitrogen (BUN) 50(H) 9 - 16 mg/dL [facility] Creatinine, Serum 3.04(H) 0.5 - 1.4 mg/dL [facility] Creatinine Clr Calc Pharmacy 14.1 [facility] Comment:Provided height and weight: 167.64 cm,48 kg.eGFR (calculated from the MDRD study equation) and eCrCl(calculated from the Cockcroft-Gault equation) are based ondifferent parameters and may not yield comparable results.If eCrCl result is absurd, please check patient'sheight/weight. Estimated Glomerular Filt Rate 15 [facility] Comment:Chronic Kidney Disea se: Estimated GFR < 60 mL/min/1.48w2Ztoxoe Kidney Disease: Estimated GFR < 15 mL/min/1.73m2 Glucose 76 60 - 115 mg/dL [facility] Calcium 9.4 8.4 - 10.2 mg/dL [facility] 05/27/2024 11:3 4 PM EST 05/27/2024 11:37 PM EST us Generic External Data Provider LAB BLOOD ORDERAB LES Final Result [facility] [address] [place] [address] [phone] * Lactic Acid (05/27/2024 9:44 PM EST) Lactic Acid 0.5 0.5 - 2.0 mmol/L [facility] 05/27/2024 9:44 PM EST 05/27/2024 9:54 PM EST us Generic External Data Provider LAB BLOOD ORDERAB LES Final Result [facility] [address] [place] [address] [phone] * CT Head w/o Contrast (05/27/2024 9:42 PM EST) Anatomical Region Laterality Modality Head, Neck Computed Tomogra phy 05/27/2024 9:42 PM EST Narrative 05/27/2024 9:44 PM EST ? [facility] ?[address] ?[place] [address] ? CT Scan Report ? Signed ? Patient: Alix Sharp ?MR#: [id number] ?? 43 ? : 1960 ?Acct:[id number] ? Age/Sex: 64 / F ?ADM Date: 05/27/24 ? Loc: HO.ED ? Attending Dr: ? Ordering Physician: Jerod Simons ?? Date of Service: 05/27/24 ?? Procedure(s): CT head/brain wo IV con ?? Accession Number(s): [id number] ? cc: Marita Wetzel DO; Jerod Simons ? Report Number: ?? [id number]: Total DLP = 1132.00 mGy-cm ? CLINICAL [...] signed by Paul Restrepo MD in OV> ?05/27/243 ? DD/ 41 ? TD/TT: 05/27/242141 ? Marketing Analytics Specialist: ? Procedure Note Donotclifinterpreter, Image - 05/27/[address] [place] [address] [address] Scan Report Signed Patient: Alix Sharp BMR#: [id number] 43 : 1960cct:[id number] Age/Sex: 64 / FADM Date: 05/27/24 Loc: HO.ED Attending Dr: Ordering Physician: Jerod Simons Date of Service: 05/27/24 Procedure(s): CT head/brain wo IV con Accession Number(s): [id number] cc: Marita Wetzel DO; Jerod Simons Report Number: [id number]: Total DLP = 1132.00 mGy-cm CLINICAL HISTORY: [...] in OV> 05/27/242142 DD/ 41 TD/TT: 05/27/242141 Marketing Analytics Specialist: [facility] External Provider IMG CT PROCEDURES Final Result * POCT HGB A1C (12/09/2023 9:43 AM EDT) Hemoglobin A1C 5.9 4.0 - 6.0 % QC Media Lot # [id number] Lot# Expiration Date ,874,026 Blood 12/09/2023 9:43 AM EDT Marita Wetzel DO POINT OF CARE TEST ENTER/HUMBERTO T ORDERABLES Final Result * (ABNORMAL) Lipid Panel, Standard (10/06/2023) Triglycerides 157 40 - 160 mg/dL Cholesterol 115 0 - 200 mg/dL HDL Cholesterol 31(A) 35 - 70 mg/dL LDL Cholesterol 57 mg/dL Blood Venous blood specimen / Unknown Result [facility] Historical Provider LAB BLOOD ORDERABLES Carly l Result * BI Mammogram Screening Tomosynthesis Bilateral (07/17/2023 10:45 AM EDT) Anatomical Region Laterality Modality Breast Bilateral Mammography 07/17/2023 10:4 5 AM EDT Narrative 08/03/2023 8:29 PM EDT ? [facility] ? [address] ?[place] [address] ? Mammography Report ? Signed ? Patient: West Batista,Alix F ?MR#: ?? [id number] ? : 1960 ?Acct:[id number] ? Age/Sex: 63 / F ?ADM Date: 03/28/24 ? Loc: HO.MAMMO ? Attending Dr: Marita Wetzel DO ? Ordering Physician: Marita Wetzel DO ?Results: 2B ?? enign Findings ? Date of Service: 07/17/23 ?Follow Up: 1 Year From Orig ?? inal Mammogram ? Procedure(s): MM tomosynthesis screening BI ?? Accession Number(s): [id number] ? cc: Marita Wetzel DO ? EXAMINATION: [...] 08/03/232024 ? DD/ 44 ? TD/TT: ? Marketing Analytics Specialist: ? Procedure Note Donotuseinterpreter, Image - 08/03/2023 [facility] [address] [place] [address] Mammography Report Signed Patient: Alix Dennis FMR#: [id number] : 1960cct:[id number] Age/Sex: 63 / FADM Date: 07/17/23 Loc: HO.MAMMO Attending Dr: Marita Wetzel DO Ordering Physician: Marita Wetzelults: 2B enign Findings Date of Service: 07/17/23Follow Up: 1 Year From Orig inal Mammogram Procedure(s): MM tomosynthesis screening BI Accession Number(s): [id number] cc: Marita Wetzel DO EXAMINATION: MM SCREENING [...] MD in OV> 08/03/232024 DD/ 1045 TD/TT: Marketing Analytics Specialist: Marita Wetzel DO IMG BI PROCEDURES Edited Res ult - Final * Hm Pap Smear (08/12/2018) Pap Negative for intraephithelial lesion or malignancy Negative for intraephithelial lesion or malignancy, Other HPV Undetected Undetected, Indeterminate, Quantitative, Not Detected Historical Provider HEALTH MAINTENANCE Final Result from Last 3 Months or Most Recently Relevant to Health Maintenance Insurance MEDICARE Member Subscriber Plan / Payer (Ef fective 2019-Present) Name:Lynne AronAlix Member ID:[id number] Relation to Subscriber:Self Name:Alix Toussaint Subscriber ID:[id number] Payer ID:[id number] Group ID:Not on file Type:Medicare Address: [facility] [address] [address] [facility] Virtual[employer] Care Teams Pipe And Boiler Covers Supervisor Relationship Specialty Start Date End Date Marita Wetzel DO [address] [place] [phone] PCP - General Family Medicine 04/21/18 [facility] 05/22/24
--- OUTSIDE RECORDS SUMMARY | 2024-07-27 11:40 | XMS_ITS | Encounter Summary ---
Author Organization [facility] Address [address] [place] [address] Phone Care Team Providers Care Repeat Chief Name Role Phone Marita Wetzel DO Primary Care Provider Unava ilable Encounter Details Date Type Department Care Team (Late st Contact Info) Description 04/17/2024 Documentation Only [facility] [address] [place] [phone] [place] [address] [place] [phone] Social History Tobacco Use Types Packs/Day Years [...] Only [facility] [address] [place] [phone] documented as of this encounter Visit Diagnoses Not on filedocumented in this encounter Care Teams Repeat Chief Relationship Specialty Start Date End Date Marita Wetzel DO [address] [place] [address] PCP - General Family Medicine 11/14/22 documented as of this encounter
--- OUTSIDE RECORDS SUMMARY | 2024-07-27 11:40 | XMS_ITS | Encounter Summary ---
Author Organization [facility] Address [address] [place] [address] Care Team Providers Care Wrecker Operator Name Role Phone Mary JaneMarita yousif Primary Care Provider +1- [phone] Encounter Details Date Type Department Care Team (Late st Contact Info) Description 03/01/2024 Lab Requisition [facility] - Main Lab 299 [facility] [place] [address] Catalina Burr MD [address] [place] [address] End stage renal disease (CMS/HCC); Type 2 [...] LAB CHEMISTRY METHOD 03/01/2024 11:27 AM EST [facility] Blood Venous blood specimen / Unknown Venipuncture / Unknown 03/01/2024 6:56 AM EST 03/01/2024 9:07 AM EST Catalina Burr MD LAB BLOOD ORDERABLES Final Resul t Performing Organization Address City/[facility]/ZIP Co de Phone Number [facility] [address] [place] [address], [place] [phone] * (ABNORMAL) Iron (03/01/2024 6:56 AM EST) Pathologist [facility] Iron 29(L) 40 - 150 mcg/dL LAB CHEMISTRY METHOD 03/01/2024 11:22 AM EST [facility] Blood Venous blood specimen / Unknown Venipuncture / Unknown 03/01/2024 6:56 AM EST 03/01/2024 9:07 AM EST Catalina Burr MD LAB BLOOD ORDERABLES Final Resul t [facility] [address] [place] [address], [place] [phone] * Tacrolimus level (03/01/2024 6:56 AM EST) [...] for research. Test performed at [facility], [facility] [place], [place] ??[address] ? [phone] Ashtyn Leigh MD, PhD - Senior Clinical Data Analyst Blood Venous blood specimen / Unknown Venipuncture / Unknown 03/01/2024 6:56 AM EST 03/01/2024 9:07 AM EST us Catalina Burr MD LAB BLOOD ORDERABLES Final Resul t [place] [address] * (ABNORMAL) Renal function panel (03/01/2024 6:56 AM EST) Sodium 140 133 - 145 mmol/L LAB CHEMISTRY METHOD 03/01/2024 11:04 AM [facility] Potassium 3.4(L) 3.5 - 5.5 mmol/L LAB CHEMISTRY METHOD 03/01/2024 11:04 AM [facility] Chloride 107 96 - 110 mmol/L LAB CHEMISTRY METHOD 03/01/2024 11:04 AM [facility] CO2 24 21 - 32 mmol/L LAB CHEMISTRY METHOD 03/01/2024 11:04 AM [facility] Anion Gap 9 3 - 11 LAB CHEMISTRY METHOD 03/01/2024 11:04 AM [facility] Glucose 107(H) 70 - 100 mg/dL LAB CHEMISTRY METHOD 03/01/2024 11:04 AM [facility] BUN 26(H) 5 - 25 mg/dL LAB CHEMISTRY METHOD 03/01/2024 11:04 AM [facility] Creatinine 2.88(H) 0.50 - 1.10 mg/dL LAB CHEMISTRY METHOD 03/01/2024 11:04 AM [facility] eGFR 18(L) >=60 mL/min/1. 73m2 LAB CHEMISTRY METHOD 03/01/2024 11:04 AM [facility] Comment:Calculation based on the??Chronic Kidney Disease Epidemiology Collaboration (CKD-EPI) equation refit??without adjustment for race. BUN/Creatinine Ratio 9.0 LAB CHEMISTRY METHOD 03/01/2024 11:04 AM [facility] Albumin 2.3(L) 3.2 - 5.0 g/dL LAB CHEMISTRY METHOD 03/01/2024 11:04 AM [facility] Calcium 8.9 8.5 - 10.5 mg/dL LAB CHEMISTRY METHOD 03/01/2024 11:04 AM [facility] Phosphorus 1.9(L) 2.5 - 4.5 mg/dL LAB CHEMISTRY METHOD 03/01/2024 11:04 AM [facility] Blood Venous blood specimen / Unknown Venipuncture / Unknown 03/01/2024 6:56 AM EST 03/01/2024 9:07 AM EST us Catalina Burr MD LAB BLOOD ORDERABLES Final Resul t [facility] [address] [place] [address], * (ABNORMAL) Complete blood count (03/01/2024 6:56 AM EST) WBC 10.2 4.8 - 10.8 K/mcL LAB HEMETOLOGY METHOD 03/01/2024 10:46 AM [facility] RBC 2.70(L) 3.80 - 4.80 M/mcL LAB HEMETOLOGY METHOD 03/01/2024 10:46 AM [facility] Hemoglobin 7.5(L) 11.5 - 16.0 g/dL LAB HEMETOLOGY METHOD 03/01/2024 10:46 AM [facility] Hematocrit 26.1(L) 35.0 - 47.0 % LAB HEMETOLOGY METHOD 03/01/2024 10:46 AM [facility] MCV 97.8 79.0 - 98.0 FL LAB HEMETOLOGY METHOD 03/01/2024 10:46 AM [facility] MCH 28.1 27.0 - 32.0 pcg LAB HEMETOLOGY METHOD 03/01/2024 10:46 AM [facility] MCHC 28.7(L) 32.0 - 37.0 g/dL LAB HEMETOLOGY METHOD 03/01/2024 10:46 AM EST [facility] RDW 16.7(H) 11.0 - 15.0 % LAB HEMETOLOGY METHOD 03/01/2024 10:46 AM EST [facility] Platelets 235 130 - 400 K/mcL LAB HEMETOLOGY METHOD 03/01/2024 10:46 AM [facility] MPV 10.8 7.0 - 11.0 FL LAB HEMETOLOGY METHOD 03/01/2024 10:46 AM EST [facility] NRBC 0.0 <1.0 % LAB HEMETOLOGY METHOD 03/01/2024 10:46 AM [facility] NRBC Absolute 0.00 <0.10 K/mcL LAB HEMETOLOGY METHOD 03/01/2024 10:46 AM [facility] Blood Venous blood specimen / Unknown Venipuncture / Unknown 03/01/2024 6:56 AM EST 03/01/2024 9:07 AM EST us Catalina Burr MD LAB BLOOD ORDERABLES Final Resul t [facility] [address] [place] [address], documented in this encounter Visit Diagnoses Diagnosis End stage renal disease (CMS/[facility]) End stage renal disease Type 2 diabetes mellitus without complications documented in this encounter Care Teams Wrecker Operator Relationship Specialty Start Date End Date Marita Wetzel DO [address] [place] [address] PCP - General 01/09/23 documented as of this encounter
--- OUTSIDE RECORDS SUMMARY | 2024-07-27 11:40 | XMS_ITS | Encounter Summary ---
Author Organization [facility] Address [address] [place] [address] Care Team Providers Care Lithographers Printer Name Role Phone Marita Wetzel Primary Care Provider +1- [phone] Encounter Details Date Type Department Care Team (Late st Contact Info) Description 04/02/[address] [facility] - Main Lab 299 [facility] [email or web address] [phone] Marily Gordillo MD [address] [place] [phone] Chronic embolism and thrombosis of unspecified vein; [...] developed and the performance characteristics determined by [facility]. This confirmation testing has not been cleared or approved by the FDA. The laboratory is regulated under CLIA as qualified to perform high-complexity testing. This test is used for patient testing purposes. It should not be regarded as investigational or for research. Test performed at [facility], [address], [place], [place] ??[address] ? [phone] Ashtyn Leigh MD, PhD - Ad Copy Writer Blood Venous blood specimen / Unknown Venipuncture / Unknown 04/05/2024 6:56 AM EST 04/05/2024 10:25 AM EST us Marily Gordillo MD LAB BLOOD ORDERABLES Final Resul t [place] [address] * (ABNORMAL) Renal function panel (04/05/2024 6:56 AM EST) Sodium 138 133 - 145 mmol/L LAB CHEMISTRY METHOD 04/05/2024 11:52 AM [facility] Potassium 5.0 3.5 - 5.5 mmol/L LAB CHEMISTRY METHOD 04/05/2024 11:52 AM [facility] Chloride 107 96 - 110 mmol/L LAB CHEMISTRY METHOD 04/05/2024 11:52 AM [facility] CO2 20(L) 21 - 32 mmol/L LAB CHEMISTRY METHOD 04/05/2024 11:52 AM [facility] Anion Gap 11 3 - 11 LAB CHEMISTRY METHOD 04/05/2024 11:52 AM [facility] Glucose 104(H) 70 - 100 mg/dL LAB CHEMISTRY METHOD 04/05/2024 11:52 AM [facility] BUN 56(H) 5 - 25 mg/dL LAB CHEMISTRY METHOD 04/05/2024 11:52 AM [facility] Creatinine 4.43(H) 0.50 - 1.10 mg/dL LAB CHEMISTRY METHOD 04/05/2024 11:52 AM [facility] eGFR 11(L) >=60 mL/min/1. 73m2 LAB CHEMISTRY METHOD 04/05/2024 11:52 AM [facility] Comment:Calculation based on the??Chronic Kidney Disease Epidemiology Collaboration (CKD-EPI) equation refit??without adjustment for race. BUN/Creatinine Ratio 12.6 LAB CHEMISTRY METHOD 04/05/2024 11:52 AM [facility] Albumin 1.9(L) 3.2 - 5.0 g/dL LAB CHEMISTRY METHOD 04/05/2024 11:52 AM EST [facility] Calcium 9.0 8.5 - 10.5 mg/dL LAB CHEMISTRY METHOD 04/05/2024 11:52 AM [facility] Phosphorus 3.1 2.5 - 4.5 mg/dL LAB CHEMISTRY METHOD 04/05/2024 11:52 AM [facility] Blood Venous blood specimen / Unknown Venipuncture / Unknown 04/05/2024 6:56 AM EST 04/05/2024 10:21 AM EST us Marily Gordillo MD LAB BLOOD ORDERABLES Final Resul t [facility] [address] [place] [address], * (ABNORMAL) Complete blood count (04/05/2024 6:56 AM EST) WBC 9.2 4.8 - 10.8 K/mcL LAB HEMETOLOGY METHOD 04/05/2024 10:42 AM [facility] RBC 2.50(L) 3.80 - 4.80 M/mcL LAB HEMETOLOGY METHOD 04/05/2024 10:42 AM [facility] Hemoglobin 6.8(L) 11.5 - 16.0 g/dL LAB HEMETOLOGY METHOD 04/05/2024 10:42 AM [facility] Hematocrit 24.8(L) 35.0 - 47.0 % LAB HEMETOLOGY METHOD 04/05/2024 10:42 AM [facility] MCV 99.6(H) 79.0 - 98.0 FL LAB HEMETOLOGY METHOD 04/05/2024 10:42 AM [facility] MCH 27.3 27.0 - 32.0 pcg LAB HEMETOLOGY METHOD 04/05/2024 10:42 AM [facility] MCHC 27.4(L) 32.0 - 37.0 g/dL LAB HEMETOLOGY METHOD 04/05/2024 10:42 AM EST [facility] RDW 16.7(H) 11.0 - 15.0 % LAB HEMETOLOGY METHOD 04/05/2024 10:42 AM [facility] Platelets 332 130 - 400 K/mcL LAB HEMETOLOGY METHOD 04/05/2024 10:42 AM [facility] MPV 10.2 7.0 - 11.0 FL LAB HEMETOLOGY METHOD 04/05/2024 10:42 AM [facility] NRBC 0.0 <1.0 % LAB HEMETOLOGY METHOD 04/05/2024 10:42 AM [facility] NRBC Absolute 0.00 <0.10 K/mcL LAB HEMETOLOGY METHOD 04/05/2024 10:42 AM [facility] Blood Venous blood specimen / Unknown Venipuncture / Unknown 04/05/2024 6:56 AM EST 04/05/2024 10:26 AM EST us Marily Gordillo MD LAB BLOOD ORDERABLES Final Resul t [facility] [address] [place] [address], documented in this encounter Visit Diagnoses Diagnosis Chronic embolism and thrombosis of unspecified vein Acute kidney failure, unspecified (CMS/HCC) Acute kidney failure, unspecified documented in this encounter Care Teams Lithographers Printer Relationship Specialty Start Date End Date Marita Wetzel DO [address] [place] [address] PCP - General 01/09/23 documented as of this encounter
--- OUTSIDE RECORDS SUMMARY | 2024-07-27 11:40 | XMS_ITS | Encounter Summary ---
Author Organization [facility] Address [address] [place] [address] Care Team Providers Care Swage Toolsetter Name Role Phone Mary JaneMarita yousif Primary Care Provider +1- [phone] Encounter Details Date Type Department Care Team (Late st Contact Info) Description 02/24/2024 Lab Requisition [facility] - Main Lab 299 [facility] [place] [address] Norbert Lopez MD [address] [facility] 204 [facility] [phone] Encounter for other specified prophylactic measures; [...] Travel phlebotomy fee (02/24/2024 12:45 PM EST) [facility] HOME TRAVEL PHLEBOTOMY FEE Completed 02/24/2024 2:01 PM EST [facility] Blood Venous blood specimen / Unknown Venipuncture / Unknown 02/24/2024 12:45 PM EST 02/24/2024 1:29 PM EST Norbert Lopez MD LAB BLOOD ORDERABLES Final Resul t Performing Organization Address [facility] [address] [facility] Co de Phone Number [facility] [address] [place] [address], [place] [phone] * (ABNORMAL) Heparin and low molecular weight anti Xa level (02/24/2024 12:45 PM EST) [facility] Heparin Anti-Xa 0.28(L) 0.30 - 0.70 I Unit/mL LAB COAGULATION METHOD 02/24/2024 2:02 PM EST [facility] Blood Venous blood specimen / Unknown Venipuncture / Unknown 02/24/2024 12:45 PM EST 02/24/2024 1:29 PM EST Narrative [facility] - 02/24/2024 2:02 PM EST Therapeutic range listed is for Unfractionated Heparin. LMW Heparin therapeutic range: 0.50-1.20 IU/mL Norbert Lopez MD LAB BLOOD ORDERABLES Final Resul t Performing Organization Address [facility] [address]/ZIP Co de Phone Number [facility] [address] [place] [address], [place] [phone] * (ABNORMAL) Basic metabolic panel (02/24/2024 12:45 PM EST) [facility] Sodium 137 133 - 145 mmol/L LAB CHEMISTRY METHOD 02/24/2024 3:10 PM EST [facility] Potassium 3.7 3.5 - 5.5 mmol/L LAB CHEMISTRY METHOD 02/24/2024 3:10 PM [facility] Chloride 104 96 - 110 mmol/L LAB CHEMISTRY METHOD 02/24/2024 3:10 PM [facility] CO2 22 21 - 32 mmol/L LAB CHEMISTRY METHOD 02/24/2024 3:10 PM [facility] Anion Gap 11 3 - 11 LAB CHEMISTRY METHOD 02/24/2024 3:10 PM [facility] Glucose 163(H) 70 - 100 mg/dL LAB CHEMISTRY METHOD 02/24/2024 3:10 PM [facility] BUN 33(H) 5 - 25 mg/dL LAB CHEMISTRY METHOD 02/24/2024 3:10 PM [facility] Creatinine 3.25(H) 0.50 - 1.10 mg/dL LAB CHEMISTRY METHOD 02/24/2024 3:10 PM [facility] eGFR 15(L) >=60 mL/min/1. 73m2 LAB CHEMISTRY METHOD 02/24/2024 3:10 PM [facility] Comment:Calculation based on the??Chronic Kidney Disease Epidemiology Collaboration (CKD-EPI) equation refit??without adjustment for race. BUN/Creatinine Ratio 10.2 LAB CHEMISTRY METHOD 02/24/2024 3:10 PM [facility] Calcium 9.4 8.5 - 10.5 mg/dL LAB CHEMISTRY METHOD 02/24/2024 3:10 PM [facility] Blood Venous blood specimen / Unknown Venipuncture / Unknown 02/24/2024 12:45 PM EST 02/24/2024 1:29 PM EST us Norbert Lopez MD LAB BLOOD ORDERABLES Final Resul t [facility] [address] [place] [address], [place] [phone] * (ABNORMAL) Complete blood count (02/24/2024 12:45 PM EST) [facility] Signature WBC 11.3(H) 4.8 - 10.8 K/mcL LAB HEMETOLOGY METHOD 02/24/2024 1:38 PM [facility] RBC 3.30(L) 3.80 - 4.80 M/mcL LAB HEMETOLOGY METHOD 02/24/2024 1:38 PM [facility] Hemoglobin 9.2(L) 11.5 - 16.0 g/dL LAB HEMETOLOGY METHOD 02/24/2024 1:38 PM [facility] Hematocrit 31.3(L) 35.0 - 47.0 % LAB HEMETOLOGY METHOD 02/24/2024 1:38 PM [facility] MCV 95.4 79.0 - 98.0 FL LAB HEMETOLOGY METHOD 02/24/2024 1:38 PM [facility] MCH 28.0 27.0 - 32.0 pcg LAB HEMETOLOGY METHOD 02/24/2024 1:38 PM [facility] MCHC 29.4(L) 32.0 - 37.0 g/dL LAB HEMETOLOGY METHOD 02/24/2024 1:38 PM [facility] RDW 16.6(H) 11.0 - 15.0 % LAB HEMETOLOGY METHOD 02/24/2024 1:38 PM [facility] Platelets 278 130 - 400 K/mcL LAB HEMETOLOGY METHOD 02/24/2024 1:38 PM [facility] MPV 10.7 7.0 - 11.0 FL LAB HEMETOLOGY METHOD 02/24/2024 1:38 PM [facility] NRBC 0.0 <1.0 % LAB HEMETOLOGY METHOD 02/24/2024 1:38 PM EST [facility] NRBC Absolute 0.00 <0.10 K/mcL LAB HEMETOLOGY METHOD 02/24/2024 1:38 PM EST [facility] Blood Venous blood specimen / Unknown Venipuncture / Unknown 02/24/2024 12:45 PM EST 02/24/2024 1:29 PM EST us Norbert Lopez MD LAB BLOOD ORDERABLES Final Resul t [facility] [address] [place] [address], documented in this encounter Visit Diagnoses Diagnosis Encounter for other specified prophylactic measures Acute kidney failure, unspecified (CMS/HCC) Acute kidney failure, unspecified documented in this encounter Care Teams Swage Toolsetter Relationship Specialty Start Date End Date Marita Wetzel DO [address] [place] [address] PCP - General 01/09/23 documented as of this encounter
--- OUTSIDE RECORDS SUMMARY | 2024-07-27 11:40 | XMS_ITS | Encounter Summary ---
Author Organization [facility] Address [address] [place] [address] Care Team Providers Care Furniture Painter Name Role Phone Mary JaneMarita yousif Primary Care Provider +1- [phone] Encounter Details Date Type Department Care Team (Late st Contact Info) Description 03/05/2024 Lab Requisition [facility] - Main Lab 299 [facility] [place] [address] Catalina Burr MD [address] [place] [address] Chronic embolism and thrombosis of unspecified vein; [...] developed and the performance characteristics determined by [facility]. This confirmation testing has not been cleared or approved by the FDA. The laboratory is regulated under CLIA as qualified to perform high-complexity testing. This test is used for patient testing purposes. It should not be regarded as investigational or for research. Test performed at [facility], [address], [place], [place] ??[address] ? [phone] Ashtyn Leigh MD, PhD - Handicapped Teacher Blood Venous blood specimen / Unknown Venipuncture / Unknown 03/08/2024 6:29 AM EST 03/08/2024 7:46 AM EST us Catalina Burr MD LAB BLOOD ORDERABLES Final Resul t [facility] [address] [place] [address] * (ABNORMAL) Renal function panel (03/08/2024 6:29 AM EST) Sodium 139 133 - 145 mmol/L LAB CHEMISTRY METHOD 03/08/2024 8:58 AM [facility] Potassium 4.5 3.5 - 5.5 mmol/L LAB CHEMISTRY METHOD 03/08/2024 8:58 AM [facility] Chloride 108 96 - 110 mmol/L LAB CHEMISTRY METHOD 03/08/2024 8:58 AM [facility] CO2 20(L) 21 - 32 mmol/L LAB CHEMISTRY METHOD 03/08/2024 8:58 AM [facility] Anion Gap 11 3 - 11 LAB CHEMISTRY METHOD 03/08/2024 8:58 AM [facility] Glucose 93 70 - 100 mg/dL LAB CHEMISTRY METHOD 03/08/2024 8:58 AM [facility] BUN 35(H) 5 - 25 mg/dL LAB CHEMISTRY METHOD 03/08/2024 8:58 AM [facility] Creatinine 3.99(H) 0.50 - 1.10 mg/dL LAB CHEMISTRY METHOD 03/08/2024 8:58 AM [facility] eGFR 12(L) >=60 mL/min/1. 73m2 LAB CHEMISTRY METHOD 03/08/2024 8:58 AM [facility] Comment:Calculation based on the??Chronic Kidney Disease Epidemiology Collaboration (CKD-EPI) equation refit??without adjustment for race. BUN/Creatinine Ratio 8.8 LAB CHEMISTRY METHOD 03/08/2024 8:58 AM EST [facility] Albumin 2.3(L) 3.2 - 5.0 g/dL LAB CHEMISTRY METHOD 03/08/2024 8:58 AM [facility] Calcium 9.0 8.5 - 10.5 mg/dL LAB CHEMISTRY METHOD 03/08/2024 8:58 AM [facility] Phosphorus 3.2 2.5 - 4.5 mg/dL LAB CHEMISTRY METHOD 03/08/2024 8:58 AM [facility] Blood Venous blood specimen / Unknown Venipuncture / Unknown 03/08/2024 6:29 AM EST 03/08/2024 7:46 AM EST us Catalina Burr MD LAB BLOOD ORDERABLES Final Resul t [facility] [address] [place] [address], [place] [phone] * (ABNORMAL) Complete blood count (03/08/2024 6:29 AM EST) WBC 9.8 4.8 - 10.8 K/mcL LAB HEMETOLOGY METHOD 03/08/2024 8:10 AM [facility] RBC 2.90(L) 3.80 - 4.80 M/mcL LAB HEMETOLOGY METHOD 03/08/2024 8:10 AM [facility] Hemoglobin 7.9(L) 11.5 - 16.0 g/dL LAB HEMETOLOGY METHOD 03/08/2024 8:10 AM [facility] Hematocrit 28.5(L) 35.0 - 47.0 % LAB HEMETOLOGY METHOD 03/08/2024 8:10 AM [facility] MCV 99.3(H) 79.0 - 98.0 FL LAB HEMETOLOGY METHOD 03/08/2024 8:10 AM EST [facility] MCH 27.5 27.0 - 32.0 pcg LAB HEMETOLOGY METHOD 03/08/2024 8:10 AM EST [facility] MCHC 27.7(L) 32.0 - 37.0 g/dL LAB HEMETOLOGY METHOD 03/08/2024 8:10 AM EST [facility] RDW 17.2(H) 11.0 - 15.0 % LAB HEMETOLOGY METHOD 03/08/2024 8:10 AM EST [facility] Platelets 299 130 - 400 K/mcL LAB HEMETOLOGY METHOD 03/08/2024 8:10 AM EST [facility] MPV 11.5(H) 7.0 - 11.0 FL LAB HEMETOLOGY METHOD 03/08/2024 8:10 AM EST [facility] NRBC 0.0 <1.0 % LAB HEMETOLOGY METHOD 03/08/2024 8:10 AM EST [facility] NRBC Absolute 0.00 <0.10 K/mcL LAB HEMETOLOGY METHOD 03/08/2024 8:10 AM [facility] Blood Venous blood specimen / Unknown Venipuncture / Unknown 03/08/2024 6:29 AM EST 03/08/2024 7:46 AM EST us Catalina Burr MD LAB BLOOD ORDERABLES Final Resul t [facility] [address] [place] [address], [place] [phone] documented in this encounter Visit Diagnoses Diagnosis Chronic embolism and thrombosis of unspecified vein Acute kidney failure, unspecified (CMS/HCC) Acute kidney failure, unspecified Type 2 diabetes mellitus without complications documented in this encounter Care Teams Furniture Painter Relationship Specialty Start Date End Date Marita Wetzel DO [address] [place] [address] PCP - General 01/09/23 documented as of this encounter
--- OUTSIDE RECORDS SUMMARY | 2024-07-27 11:40 | XMS_ITS | Encounter Summary ---
Author Organization [facility] Address [address] [place] [address] Phone Care Team Providers Care 7Th Grade Teacher Name Role Phone Marita Wetzel DO Primary Care Provider Unava ilable Encounter Details Date Type Department Care Team (Late st Contact Info) Description 06/23/2023 Documentation Only [facility] [address] [place] [phone] [place] [address] [place] [phone] Social History Tobacco Use Types Packs/Day Years [...] Only [facility] - [facility] [address] [place] [phone] documented as of this encounter Visit Diagnoses Not on filedocumented in this encounter Care Teams 7Th Grade Teacher Relationship Specialty Start Date End Date Marita Wetzel DO [address] [place] [address] PCP - General Family Medicine 11/14/22 documented as of this encounter
== END 2024-07-27 10:01 | disposition home or self-care (01) ==
LOC: HO.MAMMO 10:00
PROVIDERS: PCP Family Medicine; Visit Provider Family Medicine
DX: Z13.89 Encounter for screening for other disorder (principal)

== ENCOUNTER → 2024-07-28 10:26 | Outpatient (BNVA) | payer MEDICARE, OTHER, SELFPAY | PROVIDERS: PCP Family Medicine; Visit Provider Internal Medicine | DX: A43.9 Nocardiosis, unspecified (principal) | CPT/HCPCS: 99212 ==

== ENCOUNTER 2024-07-28 13:40 | Outpatient (AMB) | payer MEDICARE, OTHER, SELFPAY ==
--- OUTSIDE RECORDS SUMMARY | 2024-07-28 11:51 | XMS_ITS | Encounter Summary ---
Author Organization [employer] Address [address] [place] [address] [address] [place] [address] Care Team Providers Care Charter Bus Driver Name Role Phone Marita [place]zel DO Primary Care Provider [phone]- [phone] Carmen Becker PharmD Unavailable [phone] Encounter Details Date Type Department Care Team (Late st Contact Info) Description 12/11/2022 Orders Only [facility] [address] [place] [address] Heather Nesbitt, SONNY [address] [place] [address] Social History Tobacco Use Types Packs/Day Years [...] Description 08/20/2024 10:00 AM EDT Office Visit [facility] [address] [place] [address] Marita Wetzel DO [address] [place] [address] documented as of this encounter Visit Diagnoses Not on filedocumented in this encounter Additional Health Concerns Assessment Noted Time PHQ-9 Depression Total Score: 0 10/09/19 23 9:31 AM EDT documented as of this encounter Care Teams Charter Bus Driver Relationship Specialty Start Date End Date Marita Wetzel DO [address] [place] [address] PCP - General Family Medicine 04/21/18 Carmen Becker PharmD [address] [place] [address] Pharmacist Internal Medicine 07/21/23 01/21/24 [facility] 05/22/24 documented as of this encounter
--- OUTSIDE RECORDS SUMMARY | 2024-07-28 11:51 | XMS_ITS | Encounter Summary ---
Author Organization [employer] Address [address] [place] [address] 7t [place] [address] Care Team Providers Care Sql Manager Name Role Phone Marita Wetzel DO Primary Care Provider Carmen Becker PharmD Unavailable [phone] Encounter Details Date Type Department Care Team (Late st Contact Info) Description 10/14/2022 Abstract [facility] [address] [place] [address] Marita Wetzel DO [address] [place] [address] Social History Tobacco Use Types Packs/Day Years [...] 10:00 AM EDT Office Visit [facility] [address] [place], [place] [phone] Marita Wetzel DO [address] [place], [place] [phone] documented as of this encounter Visit Diagnoses Not on filedocumented in this encounter Additional Health Concerns Assessment Noted Time PHQ-9 Depression Total Score: 0 10/09/19 23 9:31 AM EDT documented as of this encounter Care Teams Sql Manager Relationship Specialty Start Date End Date Marita Wetzel DO [address] [place], [place] [phone] PCP - General Family Medicine 04/21/18 Carmen Becker PharmD [address] [place], [place] [phone] Pharmacist Internal Medicine 07/21/23 01/21/24 [facility] 05/22/24 documented as of this encounter
--- OUTSIDE RECORDS SUMMARY | 2024-07-28 11:51 | XMS_ITS | Encounter Summary ---
Author Organization [facility] Address [address] [place] [address] Phone Care Team Providers Care Utility Bag Assembler Name Role Phone Fouzia Wetzelfer Primary Care Provider Unava ilable Encounter Details Date Type Department Care Team (Late st Contact Info) Description 05/01/2023 Documentation Only [facility] [address] [place] [phone] [place] [address] [place] [phone] Social History Tobacco Use Types Packs/Day Years [...] [facility] [address] [place] [phone] Scheduled Orders Name Type Priority Associated Diagnoses [...] Primary documented in this encounter Care Teams Utility Bag Assembler Relationship Specialty Start Date End Date Marita Wetzel DO [address] [place] [address] PCP - General Family Medicine 11/14/22 documented as of this encounter
--- OUTSIDE RECORDS SUMMARY | 2024-07-28 11:51 | XMS_ITS | Patient Health Record ---
Author Organization [facility] Address [address] [place] [address] Care Team Providers Care Erp Manager Name Role Phone FiorellasylwiaMiryam Unavailable [phone] Reason For Referral No Information Encounters Encounter Location Date Provider Diagnosis [facility] [address] [place] [address] 04/22/2024 Miryam Tyson [facility] [address] [place] [address] 06/17/2024 Miryam Tyson Plan Of Treatment No Information Insurance Providers Payer Name Payer Address Payer Phone Subscriber Number Group Number Insured Name Patient Relationship to Insured Coverage Start Date Coverage End Date Medicare [facility] [address] [place] [address] [id number] Alix Sharp Self - patient is the insured for Life [address] [place] [phone] [id number] Alix Sharp Self - patient is the insured
--- OUTSIDE RECORDS SUMMARY | 2024-07-28 11:51 | XMS_ITS | Encounter Summary ---
Author Organization [facility] Address [address] [place] [phone] Phone Care Team Providers Care Employee Benefits Attorney Name Role Phone Marita Wetzel DO Primary Care Provider Unava ilable Encounter Details Date Type Department Care Team (Late st Contact Info) Description 03/18/2023 Documentation Only [facility] [address] [place] [phone] Srinivas Agrawal MD [address] [place] [address] [place] [address] Social History Tobacco Use Types [...] Only [facility] - [facility] Center [address] [place] [address] [place] [phone] documented as of this encounter Visit Diagnoses Not on filedocumented in this encounter Care Teams Employee Benefits Attorney Relationship Specialty Start Date End Date Marita Wetzel DO [address] [place] [address] PCP - General Family Medicine 11/14/22 documented as of this encounter
--- OUTSIDE RECORDS SUMMARY | 2024-07-28 11:51 | XMS_ITS ---
Author Organization [facility] Address [address] [place] [address] Care Team Providers Care Ordnance Truck Installation Mechanic Name Role Phone Miryam Tyson Unavailable [phone] REASON FOR VISIT COMMERCIAL REPRESENTATIVE Encounters Encounter Location Date Provider Diagnosis [facility] [address] [place] [address] 04/22/2024 Miryam Tyson Plan Of Treatment No Information Progress Notes * Chris BEARDB:1960 (63 yo F)Acc No.[id number]:04/22/2024 Patient:?Alix BEARD :1960???Age:63 Y???Sex:Female Address:[address] [place] [address], [address] * true * Date:? Generated for Michael santos/Chloe/eTransmitting on:?07/28/2024 10:38 AM EDT
--- OUTSIDE RECORDS SUMMARY | 2024-07-28 11:51 | XMS_ITS | Encounter Summary ---
Author Organization [facility] Address [address] [place] [phone] Phone Care Team Providers Care X Ray Control Equipment Repairer Name Role Phone Marita Wetzel DO Primary Care Provider Unava ilable Encounter Details Date Type Department Care Team (Late st Contact Info) Description 10/03/2023 Documentation Only [facility] [address] [place] [phone] Srinivas Agrawal MD [address] [place] [address] [place] [address] Social History Tobacco Use Types [...] [facility] - Vascular Access Center [address] [place] [address] [place] [phone] documented as of this encounter Visit Diagnoses Not on filedocumented in this encounter Care Teams X Ray Control Equipment Repairer Relationship Specialty Start Date End Date Marita Wetzel DO [address] [place] [address] PCP - General Family Medicine 11/14/22 documented as of this encounter
--- OUTSIDE RECORDS SUMMARY | 2024-07-28 11:51 | XMS_ITS | Encounter Summary ---
Author Organization [facility] [place] Address [address] [place] [address] Phone Care Team Providers Care Blanching Machine Operator Name Role Phone Marita Wetzel DO Primary Care Provider Unava ilable Encounter Details Date Type Department Care Team (Late st Contact Info) Description 04/02/2023 Documentation Only [facility] Dr Eufemia CONTRERAS [address] [place] [phone] Bernardo Doty MD [address] [place] [address] [place] [address] Social History Tobacco Use Types [...] Only [facility] Access Center [address] [place] [address] [place] [address] documented as of this encounter Visit Diagnoses Not on filedocumented in this encounter Care Teams Blanching Machine Operator Relationship Specialty Start Date End Date Marita Wetzel DO [address] [place] [address] PCP - General Family Medicine 7/27/23 documented as of this encounter
--- OUTSIDE RECORDS SUMMARY | 2024-07-28 11:51 | XMS_ITS | Encounter Summary ---
Author Organization [employer] Address [address] [facility] 7t [place] [address] Care Team Providers Care Credit Adjuster Name Role Phone Marita Wetzel DO Primary Care Provider [phone] Carmen Becker PharmD Unavailable [phone] Encounter Details Date Type Department Care Team (Late st Contact Info) Description 04/29/2023 Telephone [facility] [address] [place] [address] Marita Wetzel DO [address] [place] [address] Social History Tobacco Use Types Packs/Day Years [...] Description 08/20/2024 10:00 AM EDT Office Visit [facility] [address] [place] [address] Marita Wetzel DO [address] [place] [address] documented as of this encounter Visit Diagnoses Not on filedocumented in this encounter Additional Health Concerns Assessment Noted Time PHQ-9 Depression Total Score: 0 10/09/19 23 9:31 AM EDT documented as of this encounter Care Teams Credit Adjuster Relationship Specialty Start Date End Date Marita Wetzel DO [address] [place] [address] PCP - General Family Medicine 04/21/18 Carmen Becker PharmD [address] [place] [address] Pharmacist Internal Medicine 07/21/23 01/21/24 [facility] 05/22/24 documented as of this encounter
--- OUTSIDE RECORDS SUMMARY | 2024-07-28 11:51 | XMS_ITS | Encounter Summary ---
Author Organization [employer] Address [address] [place] [address] 7 [place] [address] Care Team Providers Care College Administrator Name Role Phone Marita Wetzel DO Primary Care Provider [phone] Reason for Visit * Reason Onset Date Comments Med Refill 06/25/2024 Encounter Details Date Type Department Care Team (Late st Contact Info) Description 06/25/2024 Telephone [facility] [address] [place] [address] Marita Wetzel DO [address] [place] [address] Med Refill Social History Tobacco Use Types [...] 1 g tablet To be sent to: [facility]/pharmacy [address] [place] [address] *states it was prescribed before documented in this encounter Plan of Treatment Upcoming Encounters Date Type Department Care Team (Late st Contact Info) Description 08/20/2024 10:00 AM EDT Office Visit [facility] [address] [place] [address] Marita Wetzel DO [address] [place] [address] documented as of this encounter Goals Goal [...] documented as of this encounter Care Teams College Administrator Relationship Specialty Start Date End Date Marita Wetzel DO [address] [place] [address] PCP - General Family Medicine 04/21/18 [facility] 05/22/24 documented as of this encounter
--- OUTSIDE RECORDS SUMMARY | 2024-07-28 11:51 | XMS_ITS | Encounter Summary ---
Author Organization [facility] [place], Address [address] [place] [phone] Phone Care Team Providers Care Industrial Cleaner Name Role Phone Marita Wetzel DO Primary Care Provider Unava ilable Reason for Visit * Reason Comments Med Refill Encounter Details Date Type Department Care Team (Late Contact Info) Description 06/30/2024 Refill [facility] [address] [place] [phone] Srinivas Agrawal MD [address] [place] [address] [place] [address] Social History Tobacco Use Types [...] Only [facility] [place] - V[facility] Access Center [address] [place] [address] [place] [address] documented as of this encounter Procedures Procedure Name Priority Date/Time Associated Diagnosis Comments HEMATOLOGY Routine 06/30/2024 documented in this encounter Results * (ABNORMAL) HEMATOLOGY (06/30/2024) Hemoglobin 6.3(L) 12.0 - 16.0 g/dL [facility] Hemoglobin x 3 18.9(L) 36.0 - 48.0 % [facility] 06/30/2024 07/01/2024 10: 49 AM EDT Narrative [facility] - 07/01/2024 Unless otherwise specified, test(s) performed at: [facility], [address] [place] [address] CONCRETE PIPE MAKER: Dwayne Fuentes M.D. For any questions, please call customer service at [facility]:OTHER Resulting Agency Comment Specimen source: Blood Srinivas Agrawal MD LAB BLOOD ORDERABLES Final Result [facility] See order comments or contact performing lab Unknown, [place] documented in this encounter Visit Diagnoses Not on filedocumented in this encounter Care Teams Industrial Cleaner Relationship Specialty Start Date End Date Marita Wetzel DO [address] [place] [address] PCP - General Family Medicine 11/14/22 documented as of this encounter
--- OUTSIDE RECORDS SUMMARY | 2024-07-28 11:51 | XMS_ITS | Encounter Summary ---
Author Organization [facility] [place] Address [address] [place] [address] Phone Care Team Providers Care Spin Instructor Name Role Phone Marita Wetzel DO Primary Care Provider Unava ilable Reason for Visit * Reason Comments Med Refill Encounter Details Date Type Department Care Team (Late Contact Info) Description 12/06/2020 Refill [facility] [address] [place] [phone] Bernardo Doty MD [address] [place] [address] [place] [address] Social History Tobacco Use Types [...] Only [facility] - [facility] [address] [place] [address] [place] [address] documented as of this encounter Visit Diagnoses Not on filedocumented in this encounter Care Teams Spin Instructor Relationship Specialty Start Date End Date Marita Wetzel DO [address] [place] [address] PCP - General Family Medicine 7/27/23 documented as of this encounter
--- OUTSIDE RECORDS SUMMARY | 2024-07-28 11:51 | XMS_ITS | Encounter Summary ---
Author Organization [facility] Address [address] [place] [address] Phone Care Team Providers Care Senior Medical Director Name Role Phone Marita Wetzel DO Primary Care Provider Unava ilable Encounter Details Date Type Department Care Team (Late st Contact Info) Description 10/17/2023 Documentation Only [facility] [address] [place] [phone] [place] [address] [place] [phone] Social History Tobacco Use Types Packs/Day Years [...] Only [facility] - [facility] Center [address] [place] [phone] documented as of this encounter Visit Diagnoses Not on filedocumented in this encounter Care Teams Senior Medical Director Relationship Specialty Start Date End Date Marita Wetzel DO [address] [place] [address] PCP - General Family Medicine 11/14/22 documented as of this encounter
--- OUTSIDE RECORDS SUMMARY | 2024-07-28 11:51 | XMS_ITS | Encounter Summary ---
Author Organization [facility] Address [address] [place] [address] Phone Care Team Providers Care Used Car Manager Name Role Phone Marita Wetzel DO Primary Care Provider Unava ilable Encounter Details Date Type Department Care Team (Late Contact Info) Description 10/24/2023 Documentation Only [facility] [address] [place] [phone] [place] [address] [place] [phone] Social History Tobacco Use Types Packs/Day Years [...] Only [facility] V[facility] Access Center [address] [place] [phone] documented as of this encounter Visit Diagnoses Not on filedocumented in this encounter Care Teams Used Car Manager Relationship Specialty Start Date End Date Marita Wetzel DO [address] [place] [address] PCP - General Family Medicine 11/14/22 documented as of this encounter
--- OUTSIDE RECORDS SUMMARY | 2024-07-28 11:51 | XMS_ITS ---
Author Organization [facility] Address [address] [place] [address] Care Team Providers Care Pipe Finishing Supervisor Name Role Phone Miryam Tyson Unavailable [phone] Encounters Encounter Location Date Provider Diagnosis [facility] [address] [place] [address] 07/02/2024 Miryam Tyson Plan Of Treatment No Information Progress Notes * Farhan BEARDaDOB:1960 (64 yo F)Acc No.[id number]:07/02/2024 Progress Notes Patient:?Alix BEARD Provider:?Miryam Tyson DPM :1960???Age:64 Y???Sex:Female D ate:07/02/2024 Address:[address] [place], [place] [address] Subjective: * Chief Complaints: * ??? * Medical History:? Objective: * Vitals:? Assessment: Plan: * Treatment: * Images: * The named appointment provid er may or may not be the originator of this progress note, and it is not deemed complete until electronically signed by the appointment provider. Sign off status: Pending * Provider:?Miryam Tyson DPM Date:? Generated for Michael santos/Chloe/Oraliaitting on:?07/28/2024 10:38 AM EDT
--- OUTSIDE RECORDS SUMMARY | 2024-07-28 11:51 | XMS_ITS | Encounter Summary ---
Author Organization [facility] Address [address] [place] [address] Phone Care Team Providers Care Test Engine Mechanic Name Role Phone Marita Wetzel DO Primary Care Provider Unava ilable Encounter Details Date Type Department Care Team (Late st Contact Info) Description 05/20/2023 Documentation Only [facility] [address] [place] [place] [phone] [place] [address] [place] [phone] Social History Tobacco Use Types Packs/Day Years [...] Only [facility] V[facility] Access Center [address] [place] [place] [phone] documented as of this encounter Visit Diagnoses Not on filedocumented in this encounter Care Teams Test Engine Mechanic Relationship Specialty Start Date End Date Marita Wetzel DO [address] [place] [address] PCP - General Family Medicine 11/14/22 documented as of this encounter
--- OUTSIDE RECORDS SUMMARY | 2024-07-28 11:51 | XMS_ITS | Encounter Summary ---
Author Organization [facility] Address [address] [place] [address] Phone Care Team Providers Care Information Systems Security Analyst Name Role Phone Marita Wetzel DO Primary Care Provider Unava ilable Encounter Details Date Type Department Care Team (Late Contact Info) Description 10/06/2023 Documentation Only [facility] [address] [place] [phone] [place] [address] [place] [phone] Social History Tobacco Use Types Packs/Day Years [...] Only [facility] [address] [facility] [address] [place] [phone] documented as of this encounter Visit Diagnoses Not on filedocumented in this encounter Care Teams Information Systems Security Analyst Relationship Specialty Start Date End Date Marita Wetzel DO [address] [place] [address] PCP - General Family Medicine 11/14/22 documented as of this encounter
--- OUTSIDE RECORDS SUMMARY | 2024-07-28 11:51 | XMS_ITS | Encounter Summary ---
Author Organization [facility] Address [address] [place] [address] Phone Care Team Providers Care Battery Mechanic Name Role Phone Marita Wetzel DO Primary Care Provider Unava ilable Encounter Details Date Type Department Care Team (Late Contact Info) Description 09/12/2023 Documentation Only [facility] [address] [place] [phone] [place] [address] [place] [phone] Social History Tobacco Use Types Packs/Day Years [...] Only [facility] Center [address] [place] [phone] documented as of this encounter Visit Diagnoses Not on filedocumented in this encounter Care Teams Battery Mechanic Relationship Specialty Start Date End Date Marita Wetzel DO [address] [place] [address] PCP - General Family Medicine 11/14/22 documented as of this encounter
--- OUTSIDE RECORDS SUMMARY | 2024-07-28 11:51 | XMS_ITS | Encounter Summary ---
Author Organization [facility] Address [address] [place] [address] Phone Care Team Providers Care Major Account Representative Name Role Phone Marita Wetzel DO Primary Care Provider Unava ilable Encounter Details Date Type Department Care Team (Late st Contact Info) Description 09/11/2023 Documentation Only [facility] [address] [place] [phone] Pauline Aguayo [address] [place] [phone] Social History Tobacco Use Types Packs/Day Years [...] Only [facility] Vascular Access Center [address] [place] [phone] documented as of this encounter Visit Diagnoses Not on filedocumented in this encounter Care Teams Major Account Representative Relationship Specialty Start Date End Date Marita Wetzel DO [address] [place] [address] PCP - General Family Medicine 11/14/22 documented as of this encounter
--- OUTSIDE RECORDS SUMMARY | 2024-07-28 11:51 | XMS_ITS | Encounter Summary ---
Author Organization [facility] Address [address] [place] [address] Phone Care Team Providers Care Registered Client Associate Name Role Phone Marita Wetzel DO Primary Care Provider Unava ilable Encounter Details Date Type Department Care Team (Late st Contact Info) Description 12/31/2022 Documentation Only [facility] [address] [place] [phone] Candace Adam PA Social History Tobacco Use [...] Only [facility] [place] Vascular Access Center [address] [place] [phone] documented as of this encounter Visit Diagnoses Not on filedocumented in this encounter Care Teams Registered Client Associate Relationship Specialty Start Date End Date Marita Wetzel DO [address] [place] [address] PCP - General Family Medicine 11/14/22 documented as of this encounter
--- OUTSIDE RECORDS SUMMARY | 2024-07-28 11:51 | XMS_ITS | Encounter Summary ---
Author Organization [facility] Address [address] [place] [address] Phone Care Team Providers Care Casework Supervisor Name Role Phone Marita Wetzel DO Primary Care Provider Unava ilable Encounter Details Date Type Department Care Team (Late st Contact Info) Description 04/18/2023 Documentation Only [facility] [address] [place] [phone] Jerod Adames DO [address] [facility] [place] [phone] Social History Tobacco Use Types Packs/Day Years [...] And [facility] - Vascular Access Center [address] [place] [phone] documented as of this encounter Visit Diagnoses Not on filedocumented in this encounter Care Teams Casework Supervisor Relationship Specialty Start Date End Date Marita Wetzel DO [address] [place] [address] PCP - General Family Medicine 11/14/22 documented as of this encounter
--- OUTSIDE RECORDS SUMMARY | 2024-07-28 11:51 | XMS_ITS | Encounter Summary ---
Author Organization [facility] Address [address] [place] [address] Phone Care Team Providers Care Gamma Operator Name Role Phone Marita Wetzel DO Primary Care Provider Unava ilable Encounter Details Date Type Department Care Team (Late Contact Info) Description 08/11/2023 Documentation Only [facility] [address] [place] [phone] [place] [address] [place] [phone] Social History Tobacco Use Types Packs/Day Years [...] Services Of [facility] [address] [place] [phone] documented as of this encounter Visit Diagnoses Not on filedocumented in this encounter Care Teams Gamma Operator Relationship Specialty Start Date End Date Marita Wetzel DO [address] [place] [address] PCP - General Family Medicine 11/14/22 documented as of this encounter
--- OUTSIDE RECORDS SUMMARY | 2024-07-28 11:51 | XMS_ITS | Encounter Summary ---
Author Organization [facility] Address [address] [place] [address] Phone Care Team Providers Care Right Of Way Agent Name Role Phone Marita Wetzel DO Primary Care Provider Unava ilable Encounter Details Date Type Department Care Team (Late st Contact Info) Description 06/14/2022 Documentation Only [facility] [address] [place] [phone] Candace Adam PA Social History Tobacco Use [...] Only [facility] [place], [facility] Vascular Access Center [address] [place] [phone] documented as of this encounter Visit Diagnoses Not on filedocumented in this encounter Care Teams Right Of Way Agent Relationship Specialty Start Date End Date Marita Wetzel DO [address] [place] [address] PCP - General Family Medicine 11/14/22 documented as of this encounter
--- OUTSIDE RECORDS SUMMARY | 2024-07-28 11:51 | XMS_ITS | Encounter Summary ---
Author Organization [facility] Of [facility] Address [address] [place] [address] Phone Care Team Providers Care Security Installer Name Role Phone Marita Wetzel DO Primary Care Provider Unava ilable Encounter Details Date Type Department Care Team (Late st Contact Info) Description 06/25/2022 Documentation Only [facility] [address] [place] [phone] Pauline Aguayo [address] [place] [phone] Social History Tobacco Use Types Packs/Day Years [...] [facility] [address] [place] [phone] documented as of this encounter Visit Diagnoses Not on filedocumented in this encounter Care Teams Security Installer Relationship Specialty Start Date End Date Marita Wetzel DO [address] [place] [address] PCP - General Family Medicine 11/14/22 documented as of this encounter
--- OUTSIDE RECORDS SUMMARY | 2024-07-28 11:51 | XMS_ITS ---
Author Organization [facility] Address [address] [place] [address] Care Team Providers Care Lace Pinner Name Role Phone Miryam Tyson Unavailable [phone] REASON FOR VISIT Cancel Encounters Encounter Location Date Provider Diagnosis [facility] [address] [place] [address] 06/17/2024 Miryam Tyson Plan Of Treatment No Information Progress Notes * Farhan BEARDaDOB:1960 (64 yo F)Acc No.[id number]:06/17/2024 Patient:?Alix BEARD :1960???Age:64 Y???Sex:Female Address:[address] [place] [address], [phone] * true * Date:? Generated for Binui danielle/Chloe/eTransmitting on:?07/28/2024 10:38 AM EDT
--- OUTSIDE RECORDS SUMMARY | 2024-07-28 11:51 | XMS_ITS | Encounter Summary ---
Author Organization [employer] Address [address] [place] [address] 7 [place] [address] Care Team Providers Care Machine Cloth Measurer Name Role Phone Marita Wetzel DO Primary Care Provider [phone] Carmen Becker PharmD Unavailable [phone] Reason for Visit * Reason Onset Date Comments Prior Authorization 04/25/2023 [employer] Encounter Details Date Type Department Care Team (Late st Contact Info) Description 04/25/2023 Telephone [facility] [address] [place] [address] Marita Wetzel DO [address] [place] [address] Prior Authorization ([employer]) Social History Tobacco [...] Description 08/20/2024 10:00 AM EDT Office Visit [facility] [address] [place] [address] Marita Wetzel DO [address] [place], [place] [phone] documented as of this encounter Visit Diagnoses Not on filedocumented in this encounter Additional Health Concerns Assessment Noted Time PHQ-9 Depression Total Score: 0 10/09/19 23 9:31 AM EDT documented as of this encounter Care Teams Machine Cloth Measurer Relationship Specialty Start Date End Date Marita Wetzel DO [address] [place] [address] PCP - General Family Medicine 04/21/18 Carmen Becker PharmD [address] [place] [address] Pharmacist Internal Medicine 07/21/23 01/21/24 [facility] 05/22/24 documented as of this encounter
--- OUTSIDE RECORDS SUMMARY | 2024-07-28 11:51 | XMS_ITS | Encounter Summary ---
Author Organization [facility] Of [facility] Address [address] [place] [address] Phone Care Team Providers Care Library Paraprofessional Name Role Phone Marita Wetzel DO Primary Care Provider Unava ilable Encounter Details Date Type Department Care Team (Late st Contact Info) Description 03/18/2023 Documentation Only [facility] [address] [address] Bernardo Doty MD [address] [place] [address] [place] [address] Social History Tobacco Use Types [...] Only [facility] [place], - [facility] Center [address] [place] [address] documented as of this encounter Visit Diagnoses Not on filedocumented in this encounter Care Teams Library Paraprofessional Relationship Specialty Start Date End Date Marita Wetzel DO [address] [place] [address] PCP - General Family Medicine 11/14/22 documented as of this encounter
--- OUTSIDE RECORDS SUMMARY | 2024-07-28 11:52 | XMS_ITS | Encounter Summary ---
Author Organization [facility] Of [facility] Address [address] [place] [address] Phone Care Team Providers Care Diesel Electrician Name Role Phone Marita Wetzel DO Primary Care Provider Unava ilable Encounter Details Date Type Department Care Team (Late Contact Info) Description 06/12/2023 Documentation Only [facility] [address] [place] [place] [phone] [place] [address] [place] [phone] Social History Tobacco Use Types Packs/Day Years [...] Of [facility] Center [address] [place] [place] [phone] documented as of this encounter Visit Diagnoses Not on filedocumented in this encounter Care Teams Diesel Electrician Relationship Specialty Start Date End Date Marita Wetzel DO [address] [place] [address] PCP - General Family Medicine 11/14/22 documented as of this encounter
--- OUTSIDE RECORDS SUMMARY | 2024-07-28 11:52 | XMS_ITS | Encounter Summary ---
Author Organization [facility] Address [address] [place] [address] Care Team Providers Care Pulverizer Mill Operator Name Role Phone Marita Wetzel Primary Care Provider [phone]- [phone] Encounter Details Date Type Department Care Team (Late st Contact Info) Description 04/30/2024 Lab Requisition [facility] - Main Lab [address] [place] [phone] Marily Gordillo MD [address] [place] [phone] Chronic embolism and thrombosis of unspecified vein; [...] CHEMISTRY METHOD 05/03/2024 10:39 AM EST [facility] Potassium 5.1 3.5 - 5.5 mmol/L LAB CHEMISTRY METHOD 05/03/2024 10:39 AM [facility] Chloride 99 96 - 110 mmol/L LAB CHEMISTRY METHOD 05/03/2024 10:39 AM [facility] CO2 28 21 - 32 mmol/L LAB CHEMISTRY METHOD 05/03/2024 10:39 AM [facility] Anion Gap 7 3 - 11 LAB CHEMISTRY METHOD 05/03/2024 10:39 AM [facility] Glucose 133(H) 70 - 100 mg/dL LAB CHEMISTRY METHOD 05/03/2024 10:39 AM [facility] BUN 40(H) 5 - 25 mg/dL LAB CHEMISTRY METHOD 05/03/2024 10:39 AM [facility] Creatinine 3.27(H) 0.50 - 1.10 mg/dL LAB CHEMISTRY METHOD 05/03/2024 10:39 AM [facility] eGFR 15(L) >=60 mL/min/1. 73m2 LAB CHEMISTRY METHOD 05/03/2024 10:39 AM [facility] Comment:Calculation based on the??Chronic Kidney Disease Epidemiology Collaboration (CKD-EPI) equation refit??without adjustment for race. BUN/Creatinine Ratio 12.2 LAB CHEMISTRY METHOD 05/03/2024 10:39 AM [facility] Albumin 2.1(L) 3.2 - 5.0 g/dL LAB CHEMISTRY METHOD 05/03/2024 10:39 AM [facility] Calcium 8.6 8.5 - 10.5 mg/dL LAB CHEMISTRY METHOD 05/03/2024 10:39 AM [facility] Phosphorus 1.8(L) 2.5 - 4.5 mg/dL LAB CHEMISTRY METHOD 05/03/2024 10:39 AM [facility] Blood Venous blood specimen / Unknown Venipuncture / Unknown 05/03/2024 6:09 AM EST 05/03/2024 9:28 AM EST us Marily Gordillo MD LAB BLOOD ORDERABLES Final Resul t [facility] [place] [facility] [address] [place] [address], * Tacrolimus level (05/03/2024 6:09 AM EST) [...] investigational or for research. Test performed at [facility], [address], [place], [place] ??[address] ? [phone] Ashtyn Leigh MD, PhD - [employer] Blood Venous blood specimen / Unknown Venipuncture / Unknown 05/03/2024 6:09 AM EST 05/03/2024 9:28 AM EST Marily Gordillo MD LAB BLOOD ORDERABLES Final Resul t [facility] [address] [place] [address] documented in this encounter Visit Diagnoses Diagnosis Chronic embolism and thrombosis of unspecified vein Acute kidney failure, unspecified ([facility]) Acute kidney failure, unspecified documented in this encounter Care Teams Pulverizer Mill Operator Relationship Specialty Start Date End Date Marita Wetzel DO [address] [place] [address] PCP - General 01/09/23 documented as of this encounter
--- OUTSIDE RECORDS SUMMARY | 2024-07-28 11:52 | XMS_ITS | Encounter Summary ---
Author Organization [facility] Of [facility] Address [address] [place] [address] Phone Care Team Providers Care Property Assistant Name Role Phone Marita Wetzel DO Primary Care Provider Unava ilable Encounter Details Date Type Department Care Team (Late st Contact Info) Description 09/26/2022 Documentation Only [facility] [address] [place] [phone] Candace Adam PA Social History Tobacco Use [...] Only [facility] [place], [facility] Vascular Access Center [address] [place] [phone] documented as of this encounter Visit Diagnoses Not on filedocumented in this encounter Care Teams Property Assistant Relationship Specialty Start Date End Date Marita Wetzel DO [address] [place] [address] PCP - General Family Medicine 11/14/22 documented as of this encounter
--- OUTSIDE RECORDS SUMMARY | 2024-07-28 11:52 | XMS_ITS | Encounter Summary ---
Author Organization [facility] Address [address] [place] [address] Care Team Providers Care Curriculum Development Specialist Name Role Phone Marita Wetzel DO Primary Care Provider +1- [phone] Encounter Details Date Type Department Care Team (Late st Contact Info) Description 2024 Lab Requisition [facility] - Main Lab [address] [facility] [place] [phone] Marily Gordillo MD [address] [place] [address] Chronic kidney disease, unspecified; Anemia, [...] unspecified documented in this encounter Care Teams Curriculum Development Specialist Relationship Specialty Start Date End Date Marita Wetzel DO [address] [place] [address] PCP - General 01/09/23 documented as of this encounter
--- OUTSIDE RECORDS SUMMARY | 2024-07-28 11:52 | XMS_ITS | Encounter Summary ---
Author Organization [facility] Address [address] [place] [address] Phone Care Team Providers Care Ct Mri Technologist Name Role Phone Marita Wetzel DO Primary Care Provider Unava ilable Encounter Details Date Type Department Care Team (Late st Contact Info) Description 12/06/2022 Documentation Only [facility] [address] [place] [place] [phone] [place] [address] [place] [phone] Social History Tobacco Use Types Packs/Day Years [...] Only [facility] - [facility] Center [address] [place] [phone] documented as of this encounter Visit Diagnoses Not on filedocumented in this encounter Care Teams Ct Mri Technologist Relationship Specialty Start Date End Date Marita Wetzel DO [address] [place] [address] PCP - General Family Medicine 11/14/22 documented as of this encounter
--- OUTSIDE RECORDS SUMMARY | 2024-07-28 11:52 | XMS_ITS | Encounter Summary ---
Author Organization [facility] Address [address] [place] [address] Phone Care Team Providers Care Rehab Therapy Manager Name Role Phone Marita Wetzel DO Primary Care Provider Unava ilable Encounter Details Date Type Department Care Team (Late st Contact Info) Description 01/21/2024 Documentation Only [facility] Of [address] [place] [phone] Pauline Aguayo [address] [place] [phone] Social History Tobacco Use Types Packs/Day Years [...] [facility] [address] [phone] documented as of this encounter Visit Diagnoses Not on filedocumented in this encounter Care Teams Rehab Therapy Manager Relationship Specialty Start Date End Date Marita Wetzel DO [address] [place] [address] PCP - General Family Medicine 11/14/22 documented as of this encounter
--- OUTSIDE RECORDS SUMMARY | 2024-07-28 11:52 | XMS_ITS | Encounter Summary ---
Author Organization [facility] Of [facility] Address [address] [place] [address] Phone Care Team Providers Care Cereal Popper Name Role Phone Marita Wetzel DO Primary Care Provider Unava ilable Encounter Details Date Type Department Care Team (Late Contact Info) Description 08/27/2023 Documentation Only [facility] [address] [phone] [place] [address] [place] [phone] Social History Tobacco Use Types Packs/Day Years [...] And Transplant Services Of [facility] V[facility] Access Center [address] [place] [phone] documented as of this encounter Visit Diagnoses Not on filedocumented in this encounter Care Teams Cereal Popper Relationship Specialty Start Date End Date Marita Wetzel DO [address] [place] [address] PCP - General Family Medicine 11/14/22 documented as of this encounter
--- OUTSIDE RECORDS SUMMARY | 2024-07-28 11:52 | XMS_ITS | Encounter Summary ---
Author Organization [facility] Address [address] [place] [address] Care Team Providers Care Skinner Pelts Name Role Phone Marita Wetzel DO Primary Care Provider +1- [phone] Encounter Details Date Type Department Care Team (Late st Contact Info) Description 05/12/2024 Lab Requisition [facility] - Main Lab [address] [facility] [address] [place] [phone] Marily Gordillo MD [address] [place] [address] Chronic kidney disease, unspecified; Anemia, [...] unspecified documented in this encounter Care Teams Skinner Pelts Relationship Specialty Start Date End Date Marita Wetzel DO [address] [place] [address] PCP - General 01/09/23 documented as of this encounter
--- OUTSIDE RECORDS SUMMARY | 2024-07-28 11:52 | XMS_ITS | Encounter Summary ---
Author Organization [facility] Address [address] [place] [address] Care Team Providers Care Certified Coder Name Role Phone Marita Wetzel DO Primary Care Provider +1- [phone] Encounter Details Date Type Department Care Team (Late st Contact Info) Description 04/29/2024 Lab Requisition [facility] - Main Lab [address] [facility] [place] [phone] Marily Gordillo MD [address] [place] [phone] Chronic embolism and thrombosis of unspecified vein; [...] unspecified documented in this encounter Care Teams Certified Coder Relationship Specialty Start Date End Date Marita Wetzel DO [address] [place], [place] PCP - General 01/09/23 documented as of this encounter
--- OUTSIDE RECORDS SUMMARY | 2024-07-28 11:52 | XMS_ITS | Encounter Summary ---
Author Organization [facility] Address [address] [place] [address] Care Team Providers Care Messaging Architect Name Role Phone Marita Wetzel DO Primary Care Provider +1- [phone] Encounter Details Date Type Department Care Team (Late st Contact Info) Description 05/21/2024 Lab Requisition [facility] - Main Lab [address] [facility] [employer] [place] [phone] Marily Gordillo MD [address] [place] [phone] Chronic embolism and thrombosis of unspecified vein; [...] unspecified documented in this encounter Care Teams Messaging Architect Relationship Specialty Start Date End Date Marita Wetzel DO [address] [place], [place] PCP - General 01/09/23 documented as of this encounter
--- OUTSIDE RECORDS SUMMARY | 2024-07-28 11:52 | XMS_ITS | Encounter Summary ---
Author Organization [facility] Address [address] [place] [address] Phone Care Team Providers Care Computer Networking Instructor Adjunct Name Role Phone Marita Wetzel DO Primary Care Provider Unava ilable Encounter Details Date Type Department Care Team (Late st Contact Info) Description 07/29/2023 Documentation Only [facility] [address] [place] [phone] Pauline Aguayo [address] [place] [phone] Social History Tobacco Use Types Packs/Day Years [...] And Transplant Services Of [facility] V[facility] Center [address] [place] [phone] documented as of this encounter Visit Diagnoses Not on filedocumented in this encounter Care Teams Computer Networking Instructor Adjunct Relationship Specialty Start Date End Date Marita Wetzel DO [address] [place] [address] PCP - General Family Medicine 11/14/22 documented as of this encounter
--- OUTSIDE RECORDS SUMMARY | 2024-07-28 11:52 | XMS_ITS | Encounter Summary ---
Author Organization [facility] Address [address] [place] [address] Care Team Providers Care Board Lining Machine Operator Name Role Phone Mary JaneMarita yousif Primary Care Provider +1- [phone] Encounter Details Date Type Department Care Team (Late st Contact Info) Description 04/17/2024 Lab Requisition [facility] - Main Lab [address] [facility] [place] [address] Catalina Burr MD [address] [place] [address] End stage renal disease (CMS/HCC); Anemia, unspecified [...] Test performed at [facility], [address] , [place], [place] ??[address] ? [phone] Ashtyn Leigh MD, PhD - Rocket Engine Tester Blood Venous blood specimen / Unknown Venipuncture / Unknown 04/17/2024 5:33 AM EST 04/17/2024 9:33 AM EST Catalina Burr MD LAB BLOOD ORDERABLES Final Resul t [facility] [address] [place] [address] * (ABNORMAL) Reticulocyte count (04/17/2024 5:33 AM EST) Retic Ct Abs 0.050 0.030 - 0.090 M/mcL LAB HEMETOLOGY METHOD 04/17/2024 10:42 AM EST [facility] Retic Ct Pct 1.8(H) 0.7 - 1.7 % LAB HEMETOLOGY METHOD 04/17/2024 10:42 AM [facility] Immature Retic Fract 24.7(H) 2.3 - 15.9 % LAB HEMETOLOGY METHOD 04/17/2024 10:42 AM EST [facility] Reticulocyte Hemoglobin 28.3(L) >29.0 pcg LAB HEMETOLOGY METHOD 04/17/2024 10:42 AM [facility] Blood Venous blood specimen / Unknown Venipuncture / Unknown 04/17/2024 5:33 AM EST 04/17/2024 9:33 AM EST us Catalina Burr MD LAB BLOOD ORDERABLES Final Resul t [facility] [address] [place] [address], [place] [phone] * (ABNORMAL) Comprehensive metabolic panel (04/17/2024 5:33 AM EST) Sodium 146(H) 133 - 145 mmol/L LAB CHEMISTRY METHOD 04/17/2024 11:02 AM EST [facility] Potassium 3.4(L) 3.5 - 5.5 mmol/L LAB CHEMISTRY METHOD 04/17/2024 11:02 AM [facility] Chloride 116(H) 96 - 110 mmol/L LAB CHEMISTRY METHOD 04/17/2024 11:02 AM [facility] CO2 21 21 - 32 mmol/L LAB CHEMISTRY METHOD 04/17/2024 11:02 AM [facility] Anion Gap 9 3 - 11 LAB CHEMISTRY METHOD 04/17/2024 11:02 AM [facility] Glucose 61(L) 70 - 100 mg/dL LAB CHEMISTRY METHOD 04/17/2024 11:02 AM [facility] BUN 48(H) 5 - 25 mg/dL LAB CHEMISTRY METHOD 04/17/2024 11:02 AM [facility] Creatinine 3.71(H) 0.50 - 1.10 mg/dL LAB CHEMISTRY METHOD 04/17/2024 11:02 AM [facility] eGFR 13(L) >=60 mL/min/1. 73m2 LAB CHEMISTRY METHOD 04/17/2024 11:02 AM [facility] Comment:Calculation based on the??Chronic Kidney Disease Epidemiology Collaboration (CKD-EPI) equation refit??without adjustment for race. BUN/Creatinine Ratio 12.9 LAB CHEMISTRY METHOD 04/17/2024 11:02 AM [facility] Calcium 8.7 8.5 - 10.5 mg/dL LAB CHEMISTRY METHOD 04/17/2024 11:02 AM [facility] AST (SGOT) 8(L) 10 - 42 unit/L LAB CHEMISTRY METHOD 04/17/2024 11:02 AM [facility] ALT (SGPT) 9(L) 10 - 60 unit/L LAB CHEMISTRY METHOD 04/17/2024 11:02 AM [facility] Alkaline Phosphatase 61 42 - 121 unit/L LAB CHEMISTRY METHOD 04/17/2024 11:02 AM [facility] Total Protein 5.6(L) 6.0 - 8.0 g/dL LAB CHEMISTRY METHOD 04/17/2024 11:02 AM [facility] Albumin 2.0(L) 3.2 - 5.0 g/dL LAB CHEMISTRY METHOD 04/17/2024 11:02 AM [facility] Total Bilirubin 0.5 0.0 - 1.4 mg/dL LAB CHEMISTRY METHOD 04/17/2024 11:02 AM [facility] Blood Venous blood specimen / Unknown Venipuncture / Unknown 04/17/2024 5:33 AM EST 04/17/2024 9:33 AM EST Catalina Burr MD LAB BLOOD ORDERABLES Final Resul t [facility] [address] [place] [address], * (ABNORMAL) Complete blood count (04/17/2024 5:33 AM EST) WBC 9.3 4.8 - 10.8 K/mcL LAB HEMETOLOGY METHOD 04/17/2024 10:42 AM [facility] RBC 3.10(L) 3.80 - 4.80 M/mcL LAB HEMETOLOGY METHOD 04/17/2024 10:42 AM [facility] Hemoglobin 8.3(L) 11.5 - 16.0 g/dL LAB HEMETOLOGY METHOD 04/17/2024 10:42 AM [facility] Hematocrit 30.3(L) 35.0 - 47.0 % LAB HEMETOLOGY METHOD 04/17/2024 10:42 AM [facility] MCV 98.1(H) 79.0 - 98.0 FL LAB HEMETOLOGY METHOD 04/17/2024 10:42 AM [facility] MCH 26.9(L) 27.0 - 32.0 pcg LAB HEMETOLOGY METHOD 04/17/2024 10:42 AM [facility] MCHC 27.4(L) 32.0 - 37.0 g/dL LAB HEMETOLOGY METHOD 04/17/2024 10:42 AM [facility] RDW 16.9(H) 11.0 - 15.0 % LAB HEMETOLOGY METHOD 04/17/2024 10:42 AM [facility] Platelets 206 130 - 400 K/mcL LAB HEMETOLOGY METHOD 04/17/2024 10:42 AM [facility] MPV 10.1 7.0 - 11.0 FL LAB HEMETOLOGY METHOD 04/17/2024 10:42 AM [facility] NRBC 0.0 <1.0 % LAB HEMETOLOGY METHOD 04/17/2024 10:42 AM [facility] NRBC Absolute 0.00 <0.10 K/mcL LAB HEMETOLOGY METHOD 04/17/2024 10:42 AM [facility] Blood Venous blood specimen / Unknown Venipuncture / Unknown 04/17/2024 5:33 AM EST 04/17/2024 9:33 AM EST us Catalina Burr MD LAB BLOOD ORDERABLES Final Resul t [facility] [address] [place] [address], documented in this encounter Visit Diagnoses Diagnosis End stage renal disease ([facility]) End stage renal disease Anemia, unspecified documented in this encounter Care Teams Board Lining Machine Operator Relationship Specialty Start Date End Date Marita Wetzel DO [address] [place] [address] PCP - General 01/09/23 documented as of this encounter
--- OUTSIDE RECORDS SUMMARY | 2024-07-28 11:52 | XMS_ITS | Encounter Summary ---
Author Organization [facility] Address [address] [place] [address] Care Team Providers Care Tour Manager Name Role Phone Marita Wetzel DO Primary Care Provider +1- [phone] Encounter Details Date Type Department Care Team (Late st Contact Info) Description 05/30/2024 Lab Requisition [facility] - Main Lab [address] [facility] [email or web address] [phone] Marily Gordillo MD [address] [place] [phone] Chronic embolism and thrombosis of unspecified vein; [...] unspecified documented in this encounter Care Teams Tour Manager Relationship Specialty Start Date End Date Marita Wetzel DO [address] [place], [place] PCP - General 01/09/23 documented as of this encounter
--- OUTSIDE RECORDS SUMMARY | 2024-07-28 11:52 | XMS_ITS | Encounter Summary ---
Author Organization [facility] Address [address] [place] [address] Phone Care Team Providers Care Patient Service Rep Name Role Phone Marita Wetzel DO Primary Care Provider Unava ilable Encounter Details Date Type Department Care Team (Late st Contact Info) Description 01/01/2024 Documentation Only [facility] [address] [place] [phone] [place] [address] [place] [phone] Social History Tobacco Use Types Packs/Day Years [...] Only [facility] [address] [place] [phone] documented as of this encounter Visit Diagnoses Not on filedocumented in this encounter Care Teams Patient Service Rep Relationship Specialty Start Date End Date Marita Wetzel DO [address] [place] [address] PCP - General Family Medicine 11/14/22 documented as of this encounter
--- OUTSIDE RECORDS SUMMARY | 2024-07-28 11:52 | XMS_ITS | Encounter Summary ---
Author Organization [facility] Address [address] [place] [address] Care Team Providers Care Occupational Therapy Specialist Name Role Phone Marita Wetzel Primary Care Provider +1- [phone] Encounter Details Date Type Department Care Team (Late st Contact Info) Description 05/07/2024 Lab Requisition [facility] - Main Lab [address] [place] [phone] Marily Gordillo MD [address] [place] [address] Chronic embolism and thrombosis of [...] CHEMISTRY METHOD 05/10/2024 11:45 AM EST [facility] Potassium 3.8 3.5 - 5.5 mmol/L LAB CHEMISTRY METHOD 05/10/2024 11:45 AM [facility] Chloride 96 96 - 110 mmol/L LAB CHEMISTRY METHOD 05/10/2024 11:45 AM [facility] CO2 28 21 - 32 mmol/L LAB CHEMISTRY METHOD 05/10/2024 11:45 AM [facility] Anion Gap 11 3 - 11 LAB CHEMISTRY METHOD 05/10/2024 11:45 AM [facility] Glucose 215(H) 70 - 100 mg/dL LAB CHEMISTRY METHOD 05/10/2024 11:45 AM [facility] BUN 45(H) 5 - 25 mg/dL LAB CHEMISTRY METHOD 05/10/2024 11:45 AM [facility] Creatinine 3.47(H) 0.50 - 1.10 mg/dL LAB CHEMISTRY METHOD 05/10/2024 11:45 AM [facility] eGFR 14(L) >=60 mL/min/1. 73m2 LAB CHEMISTRY METHOD 05/10/2024 11:45 AM [facility] Comment:Calculation based on the??Chronic Kidney Disease Epidemiology Collaboration (CKD-EPI) equation refit??without adjustment for race. BUN/Creatinine Ratio 13.0 LAB CHEMISTRY METHOD 05/10/2024 11:45 AM [facility] Albumin 1.7(L) 3.2 - 5.0 g/dL LAB CHEMISTRY METHOD 05/10/2024 11:45 AM [facility] Calcium 8.4(L) 8.5 - 10.5 mg/dL LAB CHEMISTRY METHOD 05/10/2024 11:45 AM [facility] Phosphorus 2.1(L) 2.5 - 4.5 mg/dL LAB CHEMISTRY METHOD 05/10/2024 11:45 AM [facility] Blood Venous blood specimen / Unknown Venipuncture / Unknown 05/10/2024 5:50 AM EST 05/10/2024 9:58 AM EST us Marily Gordillo MD LAB BLOOD ORDERABLES Final Resul t [facility] [place] [facility] [address] [place] [address], * Tacrolimus level (05/10/2024 5:50 AM EST) [...] developed and the performance characteristics determined by [place]. This confirmation testing has not been cleared or approved by the FDA. The laboratory is regulated under CLIA as qualified to perform high-complexity testing. This test is used for patient testing purposes. It should not be regarded as investigational or for research. Test performed at [facility], [address] [place], [place], [place] ??[address] ? [phone] Ashtyn Leigh MD, PhD - Mock Up Builder Blood Venous blood specimen / Unknown Venipuncture / Unknown 05/10/2024 5:50 AM EST 05/10/2024 9:58 AM EST us Marily Gordillo MD LAB BLOOD ORDERABLES Final Resul t [facility] [address] [place] [address] documented in this encounter Visit Diagnoses Diagnosis Chronic embolism and thrombosis of unspecified vein Acute kidney failure, unspecified (CMS/HCC) Acute kidney failure, unspecified documented in this encounter Care Teams Occupational Therapy Specialist Relationship Specialty Start Date End Date Marita Wetzel DO [address] [place] [address] PCP - General 01/09/23 documented as of this encounter
--- OUTSIDE RECORDS SUMMARY | 2024-07-28 11:52 | XMS_ITS | Encounter Summary ---
Author Organization [facility] Address [address] [place] [address] Care Team Providers Care Game Warden Name Role Phone Marita Wetzel Primary Care Provider +1- [phone] Encounter Details Date Type Department Care Team (Late st Contact Info) Description 04/23/2024 Lab Requisition [facility] - Main Lab [address] [place] [phone] Marily Gordillo MD [address] [place] [address] Chronic embolism and thrombosis of [...] LAB CHEMISTRY METHOD 04/26/2024 9:11 AM EST [facility] Potassium 3.4(L) 3.5 - 5.5 mmol/L LAB CHEMISTRY METHOD 04/26/2024 9:11 AM EST [facility] Chloride 109 96 - 110 mmol/L LAB CHEMISTRY METHOD 04/26/2024 9:11 AM [facility] CO2 27 21 - 32 mmol/L LAB CHEMISTRY METHOD 04/26/2024 9:11 AM [facility] Anion Gap 7 3 - 11 LAB CHEMISTRY METHOD 04/26/2024 9:11 AM [facility] Glucose 80 70 - 100 mg/dL LAB CHEMISTRY METHOD 04/26/2024 9:11 AM [facility] BUN 29(H) 5 - 25 mg/dL LAB CHEMISTRY METHOD 04/26/2024 9:11 AM [facility] Creatinine 3.36(H) 0.50 - 1.10 mg/dL LAB CHEMISTRY METHOD 04/26/2024 9:11 AM [facility] eGFR 15(L) >=60 mL/min/1. 73m2 LAB CHEMISTRY METHOD 04/26/2024 9:11 AM [facility] Comment:Calculation based on the??Chronic Kidney Disease Epidemiology Collaboration (CKD-EPI) equation refit??without adjustment for race. BUN/Creatinine Ratio 8.6 LAB CHEMISTRY METHOD 04/26/2024 9:11 AM [facility] Albumin 2.1(L) 3.2 - 5.0 g/dL LAB CHEMISTRY METHOD 04/26/2024 9:11 AM [facility] Calcium 8.7 8.5 - 10.5 mg/dL LAB CHEMISTRY METHOD 04/26/2024 9:11 AM [facility] Phosphorus 2.5 2.5 - 4.5 mg/dL LAB CHEMISTRY METHOD 04/26/2024 9:11 AM [facility] Blood Venous blood specimen / Unknown Venipuncture / Unknown 04/26/2024 6:18 AM EST 04/26/2024 8:28 AM EST Marily Gordillo MD LAB BLOOD ORDERABLES Final Resul t [facility] [address] [place] [address], documented in this encounter Visit Diagnoses Diagnosis Chronic embolism and thrombosis of unspecified vein Acute kidney failure, unspecified (CMS/HCC) Acute kidney failure, unspecified documented in this encounter Care Teams Game Warden Relationship Specialty Start Date End Date Marita Wetzel DO [address] [place] [address] PCP - General 01/09/23 documented as of this encounter
--- OUTSIDE RECORDS SUMMARY | 2024-07-28 11:52 | XMS_ITS | Encounter Summary ---
Author Organization [facility] Address [address] [place] [address] Phone Care Team Providers Care Cultural Historian Name Role Phone Marita Wetzel DO Primary Care Provider Unava ilable Encounter Details Date Type Department Care Team (Late Contact Info) Description 08/28/2023 Documentation Only [facility] [address] [place] [phone] [place] [address] [place] [phone] Social History Tobacco Use Types Packs/Day Years [...] Only [facility] [address] [place] [phone] documented as of this encounter Visit Diagnoses Not on filedocumented in this encounter Care Teams Cultural Historian Relationship Specialty Start Date End Date Marita Wetzel DO [address] [place] [address] PCP - General Family Medicine 11/14/22 documented as of this encounter
--- OUTSIDE RECORDS SUMMARY | 2024-07-28 11:52 | XMS_ITS | Encounter Summary ---
Author Organization [facility] Address [address] [place] [address] Care Team Providers Care Timber Robber Name Role Phone Marita Wetzel Primary Care Provider +1- [phone] Encounter Details Date Type Department Care Team (Late st Contact Info) Description 04/17/2024 Lab Requisition [facility] - Main Lab [address] [facility] [place] [phone] Marily Gordillo MD [address] [place] [phone] Chronic embolism and thrombosis of unspecified vein; [...] Test performed at [facility], [address], [place], [place] ??[address] ? [phone] Ashtyn Leigh MD, PhD - Supervisor [employer] Blood Venous blood specimen / Unknown Venipuncture / Unknown 04/19/2024 6:21 AM EST 04/19/2024 8:33 AM EST us Marily Gordillo MD LAB BLOOD ORDERABLES Final Resul t [place] [address] * (ABNORMAL) Renal function panel (04/19/2024 6:21 AM EST) Sodium 144 133 - 145 mmol/L LAB CHEMISTRY METHOD 04/19/2024 9:42 AM [facility] Potassium 3.3(L) 3.5 - 5.5 mmol/L LAB CHEMISTRY METHOD 04/19/2024 9:42 AM [facility] Chloride 114(H) 96 - 110 mmol/L LAB CHEMISTRY METHOD 04/19/2024 9:42 AM [facility] CO2 22 21 - 32 mmol/L LAB CHEMISTRY METHOD 04/19/2024 9:42 AM [facility] Anion Gap 8 3 - 11 LAB CHEMISTRY METHOD 04/19/2024 9:42 AM [facility] Glucose 177(H) 70 - 100 mg/dL LAB CHEMISTRY METHOD 04/19/2024 9:42 AM [facility] BUN 42(H) 5 - 25 mg/dL LAB CHEMISTRY METHOD 04/19/2024 9:42 AM [facility] Creatinine 3.65(H) 0.50 - 1.10 mg/dL LAB CHEMISTRY METHOD 04/19/2024 9:42 AM [facility] eGFR 13(L) >=60 mL/min/1. 73m2 LAB CHEMISTRY METHOD 04/19/2024 9:42 AM [facility] Comment:Calculation based on the??Chronic Kidney Disease Epidemiology Collaboration (CKD-EPI) equation refit??without adjustment for race. BUN/Creatinine Ratio 11.5 LAB CHEMISTRY METHOD 04/19/2024 9:42 AM [facility] Albumin 2.0(L) 3.2 - 5.0 g/dL LAB CHEMISTRY METHOD 04/19/2024 9:42 AM EST [facility] Calcium 8.5 8.5 - 10.5 mg/dL LAB CHEMISTRY METHOD 04/19/2024 9:42 AM [facility] Phosphorus 2.6 2.5 - 4.5 mg/dL LAB CHEMISTRY METHOD 04/19/2024 9:42 AM [facility] Blood Venous blood specimen / Unknown Venipuncture / Unknown 04/19/2024 6:21 AM EST 04/19/2024 8:33 AM EST Marily Grodillo MD LAB BLOOD ORDERABLES Final Resul t [facility] [address] [place] [address], * (ABNORMAL) Complete blood count (04/19/2024 6:21 AM EST) WBC 12.0(H) 4.8 - 10.8 K/mcL LAB HEMETOLOGY METHOD 04/19/2024 9:26 AM [facility] RBC 2.80(L) 3.80 - 4.80 M/mcL LAB HEMETOLOGY METHOD 04/19/2024 9:26 AM [facility] Hemoglobin 7.6(L) 11.5 - 16.0 g/dL LAB HEMETOLOGY METHOD 04/19/2024 9:26 AM [facility] Hematocrit 27.3(L) 35.0 - 47.0 % LAB HEMETOLOGY METHOD 04/19/2024 9:26 AM [facility] MCV 98.2(H) 79.0 - 98.0 FL LAB HEMETOLOGY METHOD 04/19/2024 9:26 AM [facility] MCH 27.3 27.0 - 32.0 pcg LAB HEMETOLOGY METHOD 04/19/2024 9:26 AM EST [facility] MCHC 27.8(L) 32.0 - 37.0 g/dL LAB HEMETOLOGY METHOD 04/19/2024 9:26 AM [facility] RDW 16.6(H) 11.0 - 15.0 % LAB HEMETOLOGY METHOD 04/19/2024 9:26 AM [facility] Platelets 230 130 - 400 K/mcL LAB HEMETOLOGY METHOD 04/19/2024 9:26 AM [facility] MPV 10.9 7.0 - 11.0 FL LAB HEMETOLOGY METHOD 04/19/2024 9:26 AM [facility] NRBC 0.0 <1.0 % LAB HEMETOLOGY METHOD 04/19/2024 9:26 AM [facility] NRBC Absolute 0.00 <0.10 K/mcL LAB HEMETOLOGY METHOD 04/19/2024 9:26 AM [facility] Blood Venous blood specimen / Unknown Venipuncture / Unknown 04/19/2024 6:21 AM EST 04/19/2024 8:33 AM EST us Marily Gordillo MD LAB BLOOD ORDERABLES Final Resul t [facility] [address] [place] [address], documented in this encounter Visit Diagnoses Diagnosis Chronic embolism and thrombosis of unspecified vein Acute kidney failure, unspecified (CMS/HCC) Acute kidney failure, unspecified documented in this encounter Care Teams Timber Robber Relationship Specialty Start Date End Date Marita Wetzel DO [address] [place] [address] PCP - General 01/09/23 documented as of this encounter
--- OUTSIDE RECORDS SUMMARY | 2024-07-28 11:52 | XMS_ITS | Clinical Summary ---
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 12922 mL 12 02/10/20 Active predniSONE 5 MG [...] Encounters Date Type Department Care Team Description 07/28/2024 Telephone [facility] [address] [place] [address] Hazel Zepeda Attempted to schedule port flush 07/26/2024 Treatment [facility], [address] [place] [address] Bernardo Doty MD End stage renal disease; Dependence on renal dialysis 07/21/2024 Orders Only [facility] [address] Srinivas Agrawal MD 07/21/2024 Treatment [facility] [address] [place] [address] Bernardo Doty MD End stage renal disease; Dependence on renal dialysis 07/19/2024 Orders Only [facility] [address] [address] Srinivas Agrawal MD 07/14/2024 Orders Only [facility] [address] [address] Srinivas Agrawal MD 07/12/2024 Orders Only [facility] [address] [address] Srinivas Agrawal MD 07/09/2024 Orders Only [facility] [address] [address] Srinivas Agrawal MD 07/07/2024 Orders Only [facility] [address] [address] Srinivas Agrawal MD 07/05/2024 Orders Only [facility] [address] [address] Srinivas Agrawal MD 07/05/2024 Treatment [facility] [address] [place] [address] Bernardo Doty MD End stage renal disease; Dependence on renal dialysis 06/30/2024 Refill [facility] [address] [address] Srinivas Agrawal MD 06/28/2024 Treatment [facility] [address] [place] [address] Bernardo Doty MD End stage renal disease; Dependence on renal dialysis 06/25/2024 Telephone [facility] [address] [place] [phone] Hazel Zepeda [facility] [place] returned call 06/25/2024 Telephone [facility] Vascular Access Center [address] [place] [phone] Hazel Zepeda Abx via port 06/23/2024 Treatment [facility], [address] [place] [address] Bernardo Doty MD End stage renal disease; Dependence on renal dialysis 06/23/2024 Orders Only [facility] [address] [address] Srinivas Agrawal MD 06/21/2024 Treatment [facility] [address] [place] [address] Bernardo Doty MD End stage renal disease; Dependence on renal dialysis 06/18/2024 Refill [facility] [address] [address] Srinivas Agrawal MD 06/10/2024 Telephone [facility] Vascular Access Center [address] [place] [address] [place] [phone] Hazel Zepeda NS port flush- pt at [facility] 05/25/2024 Telephone [facility] [address] [place] [address] Hazel Zepeda attempted to schedule port flush 05/24/2024 Orders Only [facility] [address] [address] Srinivas Agrawal MD 05/24/2024 Treatment [facility], [address] [place] [address] Bernardo Doty MD 05/10/2024 Orders Only [facility] [address] [place] [address] Srinivas Agrwaal MD 05/10/2024 Treatment [facility] [address] [place] [address] Bernardo Doty MD 2024 Orders Only [facility] [address] [address] Srinivas Agrawal MD 05/03/2024 Treatment [facility] [address] [place] [address] Candace Adam PA 04/30/2024 Orders Only [facility] [address] [address] Srinivas Agrawal MD from Last 3 Months [...] Services Of [facility] Vascular Access Center [address] [place] [address] [place] [phone] Health Maintenance Due Date Last Done Comments [...] Exam (Post-Transplant Patient) 03/29/2022 Diabetes: Hemoglobin A1C 10/07/20242 025, 04/23/2024, 04/20/2024, Additional history exists Influenza [...] TRACE ELEMENTS Routine 04/30/2024 CHEMISTRY Routine 04/30/2024 from Last 3 Months Results * (ABNORMAL) HEMATOLOGY (07/21/2024) Only the most recent of8 resultswithin the time period is included. Hemoglobin 7.1(L) 12.0 - 16.0 g/dL [facility] Hemoglobin x 3 21.3(L) 36.0 - 48.0 % [facility] 07/21/2024 07/22/2024 10: 38 AM EDT Narrative S[facility]RAE - 07/22/2024 Unless otherwise specified, test(s) performed at: [facility], [address] [place] [id number] ARTIFICIAL LIMB MAKER: Dwayne Fuentes M.D. For any questions, please call customer service at FREQUENCY:OTHER Resulting Agency Comment Specimen source: Blood Srinivas Agrawal MD LAB BLOOD ORDERABLES Final Result Performing Organization Address [facility] de Phone Number [facility] See order comments or contact performing lab Unknown, [place] * [facility] Chemistry (07/19/2024) Only the most recent of13 resultswithin the time period is included. Potassium 4.4 3.5 - 5.1 mEq/L [facility] 07/19/2024 07/22/2024 12: 20 PM EDT Narrative [facility] - 07/22/2024 Unless otherwise specified, test(s) performed at: [facility], [address] [place] [address] ARTIFICIAL LIMB MAKER: Dwayne Fuentes M.D. For any questions, please call customer service at FREQUENCY:OTHER Resulting Agency Comment Specimen source: Serum Srinivas Agrawal MD LAB BLOOD ORDERABLES Final Result Performing Organization Address [facility] de Phone Number [facility] See order comments or contact performing lab Unknown, [place] * HD KINETICS (07/09/2024) Only the most recent of3 resultswithin the time period is included. % Urea Reduction 70 65 - 80 % [facility] 07/09/2024 07/13/2024 9:0 9 AM EDT Narrative Resulting Agency Comment Specimen source: Plasma Srinivas Agrawal MD LAB BLOOD ORDERABLES Final Result Performing Organization Address [facility] de Phone Number [facility] See order comments or contact performing lab Unknown, [place] * POST CHEMISTRY (07/09/2024) Only the most recent of3 resultswithin the time period is included. BUN Post Dialysis 9 6 - 19 mg/dL [facility] 07/09/2024 07/13/2024 9:0 9 AM EDT Narrative [facility] - 07/13/2024 Unless otherwise specified, test(s) performed at: [facility], [address] [place] [address] ARTIFICIAL LIMB MAKER: Dwayne Fuentes M.D. For any questions, please call customer service at FREQUENCY:OTHER Resulting Agency Comment Specimen source: Plasma Result [facility] Srinivas Agrawal MD LAB BLOOD ORDERABLES Final Result Performing Organization Address City/[facility]/ZIP Co de Phone Number [facility] See order comments or contact performing lab Unknown, [place] * [facility] Lab Results (07/09/2024) Only the most recent of3 resultswithin the time period is included. Pathologist [facility] spKt/V (Daugirdas II) 1.46 [facility] PCR 30.86 [facility] spKt/V Gotch 1.46 [facility] nPCR_HD 0.65 [facility] eKdrt/V 1.24 [facility] eKt/V Gotch 1.24 [facility] WSTDKT/V 2.4 [facility] eKt/V (Tattersall) 1.24 [facility] eNPCR 0.59 [facility] 07/09/2024 07/09/2024 Result [facility] Ordering Provider LAB BLOOD ORDERABLES Final Result Performing Organization Address [facility]/ZIP Co de Phone Number [facility] Contact Performing lab Unknown, [place] * SPECIAL CHEMISTRY (07/07/2024) Pathologist [facility] Hemoglobin A1C 5.7 4.8 - 5.9 % [facility] 07/07/2024 07/10/2024 11: 15 AM EDT Narrative [facility]E - 07/10/2024 Unless otherwise specified, test(s) performed at: [facility], [address] [place], [place] [id number] ARTIFICIAL LIMB MAKER: Dwayne Fuentes M.D. For any questions, please call customer service at FREQUENCY:MONTHLY Resulting Agency Comment Specimen source: Blood Result [facility] Srinivas Agrawal MD LAB BLOOD BANK TEST ORDERA BLES Final Result Performing Organization Address City/[facility] Co de Phone Number [facility] See order comments or contact performing lab Unknown, [place] * IMMUNO CHEMISTRY (07/07/2024) Only the most recent of2 resultswithin the time period is included. Pathologist [facility] Hep B Surface Ag Negative Negative [facility] 07/07/2024 07/10/2024 11: 24 AM EDT Narrative Resulting Agency Comment Specimen source: Serum Srinivas Agrawal MD LAB BLOOD ORDERABLES Final Result Performing Organization Address [facility] de Phone Number [facility] See order comments or contact performing lab Unknown, [place] * (ABNORMAL) TRACE ELEMENTS (04/30/2024) Pathologist [facility] Aluminum 31(H) 0 - 10 mcg/L [facility] Comment: This test was developed and its performance characteristics determined by [facility]. It has not been cleared or approved [...] 05/04/2024 Unless otherwise specified, test(s) performed at: [facility], [address] [place] [address] ARTIFICIAL LIMB MAKER: Dwayne Fuentes M.D. For any questions, please call customer service at FREQUENCY:OTHER Resulting Agency Comment Specimen source: Serum Srinivas Agrawal MD LAB BLOOD ORDERABLES Final Result Performing Organization Address [facility] de Phone Number [facility] See order comments or contact performing lab Unknown, [place] from Last 3 Months Insurance MEDICARE MEDICARE [facility] Care Teams Biodiesel Production Associate Relationship Specialty Start Date End Date Marita Wetzel DO [address] [place] [address] PCP - General Family Medicine 11/14/22
--- OUTSIDE RECORDS SUMMARY | 2024-07-28 11:52 | XMS_ITS | Encounter Summary ---
Author Organization [facility] Address [address] [place] [address] Care Team Providers Care Petroleum Supply Specialist Name Role Phone Marita Wetzel DO Primary Care Provider +1- [phone] Encounter Details Date Type Department Care Team (Late st Contact Info) Description 04/28/2024 Lab Requisition [facility] - Main Lab [address] [facility] [place] [phone] Marily Gordillo MD [address] [place] [address] Chronic kidney disease, unspecified; Anemia, [...] unspecified documented in this encounter Care Teams Petroleum Supply Specialist Relationship Specialty Start Date End Date Marita Weztel DO [address] [place] [address] PCP - General 01/09/23 documented as of this encounter
--- OUTSIDE RECORDS SUMMARY | 2024-07-28 11:52 | XMS_ITS | Encounter Summary ---
Author Organization [facility] Address [address] [place] [address] Phone Care Team Providers Care Hone Operator Name Role Phone Marita Wetzel DO Primary Care Provider Unava ilable Encounter Details Date Type Department Care Team (Late st Contact Info) Description 12/09/2022 Documentation Only [facility] [address] [place] [phone] Candace Adam PA Social History Tobacco Use [...] Only [facility] [place] Vascular Access Center [address] [place] [phone] documented as of this encounter Visit Diagnoses Not on filedocumented in this encounter Care Teams Hone Operator Relationship Specialty Start Date End Date Marita Wetzel DO [address] [place] [address] PCP - General Family Medicine 11/14/22 documented as of this encounter
--- OUTSIDE RECORDS SUMMARY | 2024-07-28 11:52 | XMS_ITS | Encounter Summary ---
Author Organization [facility] Address [address] [place] [address] Care Team Providers Care Marine Structural Welder Name Role Phone Marita Wetzel DO Primary Care Provider +1- [phone] Encounter Details Date Type Department Care Team (Late st Contact Info) Description 05/15/2024 Lab Requisition [facility] - Main Lab [address] [facility] [employer] [place] [phone] Marily Gordillo MD [address] [place] [phone] Chronic embolism and thrombosis of unspecified vein; [...] unspecified documented in this encounter Care Teams Marine Structural Welder Relationship Specialty Start Date End Date Marita Wetzel DO [address] [place], [place] PCP - General 01/09/23 documented as of this encounter
--- OUTSIDE RECORDS SUMMARY | 2024-07-28 11:52 | XMS_ITS | Encounter Summary ---
Author Organization [facility] Address [address] [place] [address] Care Team Providers Care Auger Supervisor Name Role Phone Marita Wetzel DO Primary Care Provider +1- [phone] Encounter Details Date Type Department Care Team (Late st Contact Info) Description 05/31/2024 Lab Requisition [facility] - Main Lab [address] [facility] [employer] [place] [phone] Marily Gordillo MD [address] [place] [phone] Acute kidney failure, unspecified (CMS/HCC); Chronic embolism [...] unspecified documented in this encounter Care Teams Auger Supervisor Relationship Specialty Start Date End Date Marita Wetzel DO [address] [place], [place] PCP - General 01/09/23 documented as of this encounter
--- OUTSIDE RECORDS SUMMARY | 2024-07-28 11:52 | XMS_ITS | Encounter Summary ---
Author Organization [facility] [place], Address [address] [place] [address] Phone Care Team Providers Care Wine Merchant Name Role Phone Marita Wetzel DO Primary Care Provider Unava ilable Encounter Details Date Type Department Care Team (Late st Contact Info) Description 07/26/2024 Treatment [facility], [address] [place] [address] Jeanne Bailey MD [address] [place] [address] [place] [phone] End stage renal disease; Dependence on renal [...] Dialysis Note - Jeanne Bailey MD - 07/26/2024 12:00 AM EDT BASIC NOTE Patient: Alix Sharp : 1960 Note Author: JEANNE BAILEY MD Service Date: 07/26/2024 This patient was personally seen for a basic visit as part of routine monthly dialysis care for end stage renal disease. Attending V Block Saw Operator: JEANNE BAILEY MD Dialysis Location: [facility] Schedule: Shift: 3 OVERVIEW Patient is [...] Run even or positive. HOME MEDICATIONS Current [facility] Outpatient Medications amlodipine 10 mg tablet [...] capsule by mouth once a day. Current [facility] Allergies Allergen: codeine Reaction: Unknown Allergen: [...] K, 2.50 Ca, 1.0 Mg, 100 Dextrose ([id number]) Sodium: 137 Bicarb: 35 Pre Dialysis Vitals [...] reviewed. Dietary adjustments made in conjunction with equipment specialist. 7.Transplant: not a candidate. 06/21/24 Patient is stable, recently cd from [facility] after episode of pneumonia Medications reviewed [...] reviewed. Dietary adjustments made in conjunction with equipment specialist. Transplant: Not a candidate. 05/24/24 Patient is [...] reviewed. Dietary adjustments made in conjunction with equipment specialist. 7.Transplant: Not a candidate. decreasing tacrolimus doing [...] reviewed. Dietary adjustments made in conjunction with equipment specialist. Transplant: The patient will be re-evaluated for a kidney transplant. Signed by: JEANNE BAILEY MD on 07/27/2024 at 12:04:25 AM documented in this encounter Plan of Treatment Upcoming Encounters Date Type Department Care Team (Late st Contact Info) Description 11/03/2024 12:30 PM EDT Scheduled Only [facility] - V[facility] Access Center [address] [place] [address] documented as of this encounter Visit Diagnoses Diagnosis End stage renal disease Dependence on renal dialysis documented in this encounter Care Teams Wine Merchant Relationship Specialty Start Date End Date Marita Wetzel DO [address] [place] [address] PCP - General Family Medicine 11/14/22 documented as of this encounter
--- OUTSIDE RECORDS SUMMARY | 2024-07-28 11:52 | XMS_ITS | Encounter Summary ---
Author Organization [facility] Address [address] [place] [address] Care Team Providers Care Pharmacy Technician Program Director Name Role Phone Marita Wetzel Primary Care Provider +1- [phone] Encounter Details Date Type Department Care Team (Late st Contact Info) Description 04/20/2024 Lab Requisition [facility] - Main Lab [address] [place] [phone] Marily Gordillo MD [address] [place] [address] Chronic kidney disease, unspecified; Anemia, [...] LAB CHEMISTRY METHOD 04/22/2024 11:[address] [facility] Potassium 3.5 3.5 - 5.5 mmol/L LAB CHEMISTRY METHOD 04/22/2024 11:50 AM [facility] Chloride 112(H) 96 - 110 mmol/L LAB CHEMISTRY METHOD 04/22/2024 11:50 AM [facility] CO2 23 21 - 32 mmol/L LAB CHEMISTRY METHOD 04/22/2024 11:50 AM [facility] Anion Gap 8 3 - 11 LAB CHEMISTRY METHOD 04/22/2024 11:50 AM [facility] Glucose 135(H) 70 - 100 mg/dL LAB CHEMISTRY METHOD 04/22/2024 11:50 AM [facility] BUN 43(H) 5 - 25 mg/dL LAB CHEMISTRY METHOD 04/22/2024 11:50 AM [facility] Creatinine 3.79(H) 0.50 - 1.10 mg/dL LAB CHEMISTRY METHOD 04/22/2024 11:50 AM [facility] eGFR 13(L) >=60 mL/min/1. 73m2 LAB CHEMISTRY METHOD 04/22/2024 11:50 AM [facility] Comment:Calculation based on the??Chronic Kidney Disease Epidemiology Collaboration (CKD-EPI) equation refit??without adjustment for race. BUN/Creatinine Ratio 11.3 LAB CHEMISTRY METHOD 04/22/2024 11:50 AM [facility] Calcium 8.6 8.5 - 10.5 mg/dL LAB CHEMISTRY METHOD 04/22/2024 11:50 AM [facility] AST (SGOT) 9(L) 10 - 42 unit/L LAB CHEMISTRY METHOD 04/22/2024 11:50 AM [facility] ALT (SGPT) 9(L) 10 - 60 unit/L LAB CHEMISTRY METHOD 04/22/2024 11:50 AM [facility] Alkaline Phosphatase 59 42 - 121 unit/L LAB CHEMISTRY METHOD 04/22/2024 11:50 AM [facility] Total Protein 5.8(L) 6.0 - 8.0 g/dL LAB CHEMISTRY METHOD 04/22/2024 11:50 AM [facility] Albumin 2.0(L) 3.2 - 5.0 g/dL LAB CHEMISTRY METHOD 04/22/2024 11:50 AM [facility] Total Bilirubin 0.3 0.0 - 1.4 mg/dL LAB CHEMISTRY METHOD 04/22/2024 11:50 AM [facility] Blood Venous blood specimen / Unknown Venipuncture / Unknown 04/22/2024 7:09 AM EST 04/22/2024 9:42 AM EST Marily Gordillo MD LAB BLOOD ORDERABLES Final Resul t [facility] [address] [place] [address], * (ABNORMAL) Complete blood count (04/22/2024 7:09 AM EST) Pathologist [facility] WBC 8.2 4.8 - 10.8 K/mcL LAB HEMETOLOGY METHOD 04/22/2024 10:44 AM [facility] RBC 2.80(L) 3.80 - 4.80 M/mcL LAB HEMETOLOGY METHOD 04/22/2024 10:44 AM [facility] Hemoglobin 7.8(L) 11.5 - 16.0 g/dL LAB HEMETOLOGY METHOD 04/22/2024 10:44 AM [facility] Hematocrit 27.7(L) 35.0 - 47.0 % LAB HEMETOLOGY METHOD 04/22/2024 10:44 AM [facility] MCV 97.5 79.0 - 98.0 FL LAB HEMETOLOGY METHOD 04/22/2024 10:44 AM [facility] MCH 27.5 27.0 - 32.0 pcg LAB HEMETOLOGY METHOD 04/22/2024 10:[address] [facility] MCHC 28.2(L) 32.0 - 37.0 g/dL LAB HEMETOLOGY METHOD 04/22/2024 10:44 AM [facility] RDW 16.5(H) 11.0 - 15.0 % LAB HEMETOLOGY METHOD 04/22/2024 10:44 AM [facility] Platelets 189 130 - 400 K/mcL LAB HEMETOLOGY METHOD 04/22/2024 10:44 AM [facility] MPV 10.7 7.0 - 11.0 FL LAB HEMETOLOGY METHOD 04/22/2024 10:44 AM [facility] NRBC 0.0 <1.0 % LAB HEMETOLOGY METHOD 04/22/2024 10:44 AM [facility] NRBC Absolute 0.00 <0.10 K/mcL LAB HEMETOLOGY METHOD 04/22/2024 10:44 AM [facility] Blood Venous blood specimen / Unknown Venipuncture / Unknown 04/22/2024 7:09 AM EST 04/22/2024 9:43 AM EST us Marily Gordillo MD LAB BLOOD ORDERABLES Final Resul t [facility] [address] [place] [address], documented in this encounter Visit Diagnoses Diagnosis Chronic kidney disease, unspecified Anemia, unspecified documented in this encounter Care Teams Pharmacy Technician Program Director Relationship Specialty Start Date End Date Marita Wetzel DO [address] [place] [address] PCP - General 01/09/23 documented as of this encounter
--- OUTSIDE RECORDS SUMMARY | 2024-07-28 11:52 | XMS_ITS | Encounter Summary ---
Author Organization [facility] Address [address] [place] [address] Care Team Providers Care Spaghetti Press Helper Name Role Phone Marita Wetzel Primary Care Provider +1- [phone] Encounter Details Date Type Department Care Team (Late st Contact Info) Description 04/30/2024 Lab Requisition [facility] - Main Lab [address] [place] [phone] Marily Gordillo MD [address] [place] [phone] Anemia, unspecified; Chronic embolism and thrombosis of [...] LAB CHEMISTRY METHOD 05/03/2024 10:59 AM EST [facility] Blood Venous blood specimen / Unknown Venipuncture / Unknown 05/03/2024 6:09 AM EST 05/03/2024 9:29 AM EST Marily Gordillo MD LAB BLOOD ORDERABLES Final Resul t Performing Organization Address City/[facility]/ZIP Co de Phone Number [facility] [address] [place] [address], [place] [phone] * (ABNORMAL) Ferritin (05/03/2024 6:09 AM EST) Ferritin 2,737(H) 8 - 252 ng/mL LAB CHEMISTRY METHOD 05/03/2024 10:59 AM EST [facility] Blood Venous blood specimen / Unknown Venipuncture / Unknown 05/03/2024 6:09 AM EST 05/03/2024 9:29 AM EST Marily Gordillo MD LAB BLOOD ORDERABLES Final Resul t Performing Organization Address [facility]/ZIP Co de Phone Number [facility] [address] [place] [address], [place] [phone] documented in this encounter Visit Diagnoses Diagnosis Anemia, unspecified Chronic embolism and thrombosis of unspecified vein Acute kidney failure, unspecified (CMS/HCC) Acute kidney failure, unspecified documented in this encounter Care Teams Spaghetti Press Helper Relationship Specialty Start Date End Date Marita Wetzel DO [address] [place] [address] PCP - General 01/09/23 documented as of this encounter
--- OUTSIDE RECORDS SUMMARY | 2024-07-28 11:52 | XMS_ITS | Encounter Summary ---
Author Organization [facility] Address [address] [place] [address] Phone Care Team Providers Care Oil Furnace Installer Name Role Phone Marita Wetzel DO Primary Care Provider Unava ilable Encounter Details Date Type Department Care Team (Late st Contact Info) Description 07/04/2023 Documentation Only [facility] [address] [place] [phone] Pauline Aguayo [address] [place] [phone] Social History Tobacco Use Types Packs/Day Years [...] Only [facility] [address] [place] [phone] documented as of this encounter Visit Diagnoses Not on filedocumented in this encounter Care Teams Oil Furnace Installer Relationship Specialty Start Date End Date Marita Wetzel DO [address] [place] [address] PCP - General Family Medicine 11/14/22 documented as of this encounter
--- OUTSIDE RECORDS SUMMARY | 2024-07-28 11:52 | XMS_ITS | Encounter Summary ---
Author Organization [facility] Address [address] [place] [address] Care Team Providers Care Code Number Stamper Name Role Phone Marita Wetzel DO Primary Care Provider [phone]- [phone] Encounter Details Date Type Department Care Team (Late st Contact Info) Description 04/28/2024 Lab Requisition [facility] - Main Lab [address] [facility] [phone] Marily Gordillo MD [address] [place] [address] Chronic kidney disease, unspecified; Anemia, [...] unspecified documented in this encounter Care Teams Code Number Stamper Relationship Specialty Start Date End Date Marita Wetzel DO [address] [place] [address] PCP - General 01/09/23 documented as of this encounter
--- OUTSIDE RECORDS SUMMARY | 2024-07-28 11:52 | XMS_ITS | Encounter Summary ---
Author Organization [facility] Address [address] [place] [address] Care Team Providers Care Fishing Rod Trimmer Name Role Phone Marita Weztel DO Primary Care Provider [phone]- [phone] Encounter Details Date Type Department Care Team (Late st Contact Info) Description 04/10/2024 Lab Requisition [facility] - Main Lab [address] [facility] [employer] [place] [phone] Marily Gordillo MD [address] [place] [phone] Chronic embolism and thrombosis of unspecified vein; [...] unspecified documented in this encounter Care Teams Fishing Rod Trimmer Relationship Specialty Start Date End Date Marita Wetzel DO [address] [place], [place] PCP - General 01/09/23 documented as of this encounter
--- OUTSIDE RECORDS SUMMARY | 2024-07-28 11:52 | XMS_ITS | Encounter Summary ---
Author Organization [employer] Address [address] [place] [address] 7 [place] [address] Care Team Providers Care Zinc Furnace Charger Name Role Phone Marita Wetzel DO Primary Care Provider + [phone] Reason for Visit * Reason Onset Date Comments Hospital Follow-up 06/11/2024 Encounter Details Date Type Department Care Team ([facility] st Contact Info) Description 06/11/2024 Telephone [facility] [address] [place] [address] Marita Wetzel DO [address] [place], [place] [phone] Hospital Follow-up Social History Tobacco Use Types [...] from pt requesting a HDF appt. [facility]: [facility] Date of admission: 05/31/2024 Discharge date: ------ Diagnosed:kidney failure *Send message to [place] Clinical Care Coordinators documented in this encounter Plan of Treatment Upcoming Encounters Date Type Department Care Team (Late st Contact Info) Description 08/20/2024 10:00 AM EDT Office Visit [facility] [address] [place] [address] Marita Wetzel DO [address] [place], [place] [phone] documented as of this encounter Goals Goal [...] documented as of this encounter Care Teams Zinc Furnace Charger Relationship Specialty Start Date End Date Marita Wetzel DO [address] [place] [address] PCP - General Family Medicine 04/21/18 [facility] 05/22/24 documented as of this encounter
--- OUTSIDE RECORDS SUMMARY | 2024-07-28 11:53 | XMS_ITS | Encounter Summary ---
Author Organization [facility] Address [address] [place] [address] Phone Care Team Providers Care Tube Station Attendant Name Role Phone Marita Wetzel DO Primary Care Provider Unava ilable Encounter Details Date Type Department Care Team (Late st Contact Info) Description 11/11/2022 Documentation Only [facility] [address] [place] [phone] Pauline Aguayo [address] [place] [phone] Social History Tobacco Use Types Packs/Day Years [...] [facility] [address] [place] [phone] documented as of this encounter Visit Diagnoses Not on filedocumented in this encounter Care Teams Tube Station Attendant Relationship Specialty Start Date End Date Marita Wetzel DO [address] [place] [address] PCP - General Family Medicine 11/14/22 documented as of this encounter
--- OUTSIDE RECORDS SUMMARY | 2024-07-28 11:53 | XMS_ITS | Clinical Summary ---
Author Organization [employer] Address [address] [place] [address] 7 [place] [address] Care Team Providers Care Alterations Workroom Clerk Name Role Phone DevendraMarita perez Primary Care Provider + [phone] Allergies Active Allergy Reactions Criticality Noted Date Comments Codeine Hives High 11/12/2011 Other reaction(s): FAINTING/HIVES Oxycodone 07/30/2022 Oxycodone-Acetaminophen Hives High 10/05/2012 Other reaction(s): Nausea / Vomiting Medications * This document contains information received from the source organization and may not represent a complete record from that organization. Continuous Blood Gluc Palaeontologist ([employer] Pay Seema [address] [place]) device 05/07/19 23 Active dorzolamide-ti molol (Cosopt) [...] Blood Gluc Sensor (FreeStyle Seema 2 Sensor) [facility] Use as directed Active [...] 4 times daily. 10/10/19 24 Active Procrit 94451 UNIT/ML injection 12/09/19 24 Active insulin glargine [...] Type Department Care Team Description 07/21/2024 Refill [facility] [place] [address] Marita Wetzel DO 07/19/2024 Telephone [facility] [address] Marita Wetzel DO Results 07/06/[address] [address] Marita Wetzel DO Medication Question 07/01/2024 Orders Only GENERIC EXTERNAL DATA DEPARTMENT Provider, Generic External Data 06/25/2024 Telephone [facility] [place] [address] Marita Wetzel DO Nurse Triage 06/25/[address] [address] Marita Wetzel DO Med Refill 06/22/[address] [address] Marita Wetzel DO Medication Question 06/17/[address] [address] Marita Wetzel DO 06/11/2024 Patient Outreach [address] [address] Marita Wetzel DO Transition Of Care (Tcm) (HDF unscheduled) 06/11/[address] [address] Marita Wetzel DO Hospital Follow-up 05/27/2024 Orders Only GENERIC EXTERNAL DATA DEPARTMENT Provider, Generic External Data 05/07/2024 Telephone [facility] [place] [address] Renetta Romo [place] Recall Letter (Recall Letter [...] 08/20/2024 10:00 AM EDT Office Visit [facility] [address] [place] [address] Marita Wetzel DO [address] [place] [address] Health Maintenance Due Date Last Done Comments [...] EDT Narrative 07/08/2024 8:27 AM EDT ? [facility] ?[address] ?[place] [address] ?XRay Report ? Signed ? Patient: Alix Sharp ?MR#: [id number] ?? 43 ? : 1960 ?Acct:[id number] ? Age/Sex: 64 / F ?ADM Date: 07/07/24 ? Loc: HO.XRAY ? Attending Dr: Kim Katz MD ? Ordering Physician: Kim Katz MD ?? Date of Service: 07/07/24 ?? Procedure(s): XR chest 2V ?? Accession Number(s): [id number] ? cc: Kim Katz MD; Marita Wetzel [...] DD/ 1414 ? TD/TT: 07/07/24 1533 ? Home Health Scheduler: ? Procedure Note Dondanie, Image - 07/08/[address] [address] XRay Report Signed Patient: Alix Sharp BMR#: [id number] 43 : 1960cct:[id number] Age/Sex: 64 / FADM Date: 07/07/24 Loc: HO.XRAY Attending Dr: Kim Katz MD Ordering Physician: Kim Katz MD Date of Service: 07/07/24 Procedure(s): XR chest 2V Accession Number(s): [id number] cc: Kim Katz MD; Marita Wetzel DO [...] Right lower lobe pneumonia. Electronically signed by: Db Berry MD 07/08/2024 08:23 AM EDT Dictated By: Db Berry MD Signed By: <Electronically signed by Db Berry MD in OV> 07/08/24 0823 DD/ 1414 TD/TT: 07/07/24 1533 Home Health Scheduler: us [facility] External Provider IMG XR PROCEDURES Edited Result - Final * XR Chest 1 View (06/04/2024 5:19 AM EST) Only the most recent of2 resultswithin the time period is included. Anatomical Region Laterality Modality Chest Radiographic Lily ging 06/04/2024 5:19 AM EST Narrative 06/04/2024 5:20 AM EST ? [facility] ?[address] ?[place] [address] ?XRay Report ? Signed ? Patient: West,Alix B ?MR#: [id number] ?? 43 ? : 1960 ?Acct:[id number] ? Age/Sex: 64 / F ?ADM Date: 05/28/24 ? Loc: HO.IMC ?477-1 ? Attending Dr: aMlik Orozco MD ? Ordering Physician: Nirav Osborn MD ?? Date of Service: 06/03/24 ?? Procedure(s): XR chest 1V ?? Accession Number(s): [id number] ? cc: Marita Wetzel DO; Nirav Osborn [...] DD/ 0519 ? TD/TT: 06/04/24 0519 ? Home Health Scheduler: ? Procedure Note Juanita, Image - 06/04/2024 [facility] [address] [place] [address] XRay Report Signed Patient: Alix Sharp BMR#: [id number] 43 : 1960cct:[id number] Age/Sex: 64 / FADM Date: 05/28/24 Loc: [facility] 477-[address]: Malik Orozco MD Ordering Physician: Nirav Osborn MD Date of Service: 06/03/24 Procedure(s): XR chest 1V Accession Number(s): [id number] cc: Marita Wetzel DO; Nirav Osborn MD [...] in OV> 06/04/2420 DD/ 8 TD/TT: 06/04/24518 Home Health Scheduler: [facility] External Provider IMG XR PROCEDURES Final Result * CT Chest w/ Contrast (05/31/2024 7:00 AM EST) Anatomical Region Laterality Modality Body, Chest Computed Tomogra phy 05/31/2024 7:00 AM EST Narrative 05/31/2024 9:38 AM EST ? [facility] ?[address] ?[place] [address] ? CT Scan Report ? Signed ? Patient: West,Alix B ?MR#: [id number] ?? 43 ? : 1960 ?Acct:[id number] ? Age/Sex: 64 / F ?ADM Date: 05/28/ ? Loc: HO.IMC ?477-1 ? Attending Dr: Ab Barba MD ? Ordering Physician: Malik Orozco MD ?? Date of Service: 05/31/24 ?? Procedure(s): CT chest w IV con ?? Accession Number(s): [id number] ? cc: Malik Orozco MD; Marita Wetzel DO ? Report Number: ?? [id number]: Total DLP = ??187.00 mGy-cm ?? EXAMINATION: [...] DD/ 0700 ? TD/TT: 05/31/24 0905 ? Home Health Scheduler: ? Procedure Note Juanita, Image - 05/31/[address] [place] [address] [address] Scan Report Signed Patient: Alix Sharp BMR#: [id number] 43 : 1960cct:[id number] Age/Sex: 64 / FADM Date: 05/28/24 Loc: [facility] 477-[address]: Ab Barba MD Ordering Physician: Malik Orozco MD Date of Service: 05/31/24 Procedure(s): CT chest w IV con Accession Number(s): [id number] cc: Malik Orozco MD; Marita Wetzel DO Report Number: [id number]: Total DLP = 187.00 mGy-cm EXAMINATION: CT [...] in OV> 05/31/24934 DD/ 9 TD/TT: 05/31/24904 Home Health Scheduler: [facility] External Provider IMG CT PROCEDURES Edited Result - Final * Mr Brain w/ and w/o Contrast (05/30/2024 2:27 PM EST) Anatomical Region Laterality Modality Brain Magnetic Resonan ce 05/30/2024 2:27 PM EST Narrative 05/30/2024 2:30 PM EST ? [facility] ?[address] ?[place] [address] ? Magnetic Resonance Report ? Signed with Addenda ? Patient: West,Alix B ?MR#: [id number] ?? 43 ? : 1960 ?Acct:[id number] ? Age/Sex: 64 / F ?ADM Date: 05/28/24 ? Loc: HO.IMC ?477-1 ? Attending Dr: Malik Orozco MD ? Ordering Physician: Malik Orozco MD ?? Date of Service: 05/30/24 ?? Procedure(s): MR head/brain wo/w con ?? Accession Number(s): [id number] ? cc: Malik Orozco MD; Marita Wetzel [...] ? DD/ 26 ? TD/TT: 05/30/241426 ? Home Health Scheduler: ? Procedure Note Delvis Grant - 05/30/[address] [address] Magnetic Resonance Report Signed with Daniel Patient: Alix Sharp BMR#: [id number] 43 : 1960cct:[id number] Age/Sex: 64 / FADM Date: 05/28/24 Loc: [facility] 477-[address]: Malik Orozco MD Ordering Physician: Malik Orozco MD Date of Service: 05/30/24 Procedure(s): MR head/brain wo/w con Accession Number(s): [id number] cc: Malik Orozco MD; Marita Wetzel DO [...] 05/30/24 1429 DD/ 26 TD/TT: 05/30/24 142 Home Health Scheduler: [facility] External Provider IMG MRI PROCEDURES Edited Result - Final * VASC Carotid Artery Duplex Bilateral (05/30/2024 1:41 PM EST) 05/30/2024 1:41 PM EST Narrative [facility] - 05/31/2024 8:14 AM EST ? [facility] ?[address] ?[place] [address] ? Ultrasound Report ? Signed ? Patient: Aron,Alix B ?MR#: [id number] ?? 43 ? : 1960 ?Acct:[id number] ? Age/Sex: 64 / F ?ADM Date: 05/28/ ? Loc: HO.IMC ?477-1 ? Attending Dr: Ab Barba MD ? Ordering Physician: Malik Orozco MD ?? Date of Service: 05/30/24 ?? Procedure(s): US carotid duplex BI ?? Accession Number(s): [id number] ? cc: Malik Orozco MD; Marita Wetzel [...] DD/ 1341 ? TD/TT: 05/30/24 1352 ? Home Health Scheduler: ? Procedure Note Delvis Grant - 05/31/2024 [place] [address] [place] [address] Ultrasound Report Signed Patient: Alix Sharp BMR#: [id number] 43 : 1Acct:[id number] Age/Sex: 64 / FADM Date: 05/28/24 Loc: .[facility] 477-[address]: Ab Barba MD Ordering Physician: Malik Orozco MD Date of Service: 05/30/24 Procedure(s): US carotid duplex BI Accession Number(s): [id number] cc: Malik Orozco MD; Marita Wetzel DO [...] by: Db Berry MD 05/31/2024 08:12 AM [facility] Dictated By: Db Berry MD Signed By: <Electronically signed by Db Berry MD in OV> 05/31/24 0812 DD/ 1341 TD/TT: 05/30/24 1352 Home Health Scheduler: us [facility] External Provider CV VASC ULAR PROCEDURES Edited Result - Final [facility] [address] [place] [address] * CT Head Stroke w/o Contrast (05/30/2024 11:28 AM EST) Anatomical Region Laterality Modality Computed Tomogra phy 05/30/2024 11:2 8 AM EST Narrative 05/30/2024 11:30 AM EST ? [facility] ?[address] ?[place] [address] ? CT Scan Report ? Signed with Addenda ? Patient: Alix Sharp ?MR#: [id number] ?? 43 ? : 1960 ?Acct:[id number] ? Age/Sex: 64 / F ?ADM Date: 05/28/24 ? Loc: HO.IMC ?477-1 ? Attending Dr: Malik Orozco MD ? Ordering Physician: Malik Orozco MD ?? Date of Service: 05/30/24 ?? Procedure(s): CT head for STROKE ?? Accession Number(s): [id number] ? cc: Malik Orozco MD; Marita Wetzel DO ? Report Number: ?? [id number]: Total DLP = ??749.00 mGy-cm ?ADDENDUM ?? [...] ?? CT/SR - BRAIN WO IV CONTRAST 98042 - 09/16/18 13:47 EDT ? Findings: ?? [...] DD/ 1128 ? TD/TT: 05/30/24 1128 ? Home Health Scheduler: ? Procedure Note Pergregclifrocio, Image - 05/30/[address] [place] [address] [address] Scan Report Signed with Daniel Patient: Alix Sharp BMR#: [id number] 43 : 1960cct:[id number] Age/Sex: 64 / FADM Date: 05/28/24 Loc: [facility] 477-[address]: Malik Orozco MD Ordering Physician: Malik Orozco MD Date of Service: 05/30/24 Procedure(s): CT head for STROKE Accession Number(s): [id number] cc: Malik Orozco MD; Marita Wetzel DO Report Number: [id number]: Total DLP = 749.00 mGy-cm ADDENDUM This [...] EDT CT/SR - BRAIN WO IV CONTRAST 632[address] - 09/16/18 13:47 EDT Findings: Findings concerning [...] MD Signed By: <Electronically signed by Yoni Beavre MD in OV> 05/30/24 113 DD/ 27 TD/TT: 05/30/248 Home Health Scheduler: [facility] External Provider IMG CT PROCEDURES Edited Result [...] Kidney Disea se: Estimated GFR < 60 mL/min/1.85d0Jxnmyf Kidney Disease: Estimated GFR < 15 mL/min/1.73m2 Glucose 76 60 - 115 mg/dL [facility] Calcium 9.4 8.4 - 10.2 mg/dL [facility] 05/27/2024 11:3 4 PM EST 05/27/2024 11:37 PM EST us Generic External Data Provider LAB BLOOD ORDERAB LES Final Result [facility] [address] [place] [phone] * Lactic Acid (05/27/2024 9:44 PM EST) Lactic Acid 0.5 0.5 - 2.0 mmol/L [facility] 05/27/2024 9:44 PM EST 05/27/2024 9:54 PM EST us Generic External Data Provider LAB BLOOD ORDERAB LES Final Result [facility] [address] [place] [address] [phone] * CT Head w/o Contrast (05/27/2024 9:42 PM EST) Anatomical Region Laterality Modality Head, Neck Computed Tomogra phy 05/27/2024 9:42 PM EST Narrative 05/27/2024 9:44 PM EST ? [facility] ?[address] ?[place] [address] ? CT Scan Report ? Signed ? Patient: Alix Sharp ?MR#: [id number] ?? 43 ? : 1960 ?Acct:[id number] ? Age/Sex: 64 / F ?ADM Date: 05/27/24 ? Loc: HO.ED ? Attending Dr: ? Ordering Physician: Jerod Simons ?? Date of Service: 05/27/24 ?? Procedure(s): CT head/brain wo IV con ?? Accession Number(s): [id number] ? cc: Marita Wetzel DO; Jerod Simons ? Report Number: ?? [id number]: Total DLP = 1132.00 mGy-cm ? CLINICAL [...] ? DD/ 41 ? TD/TT: 05/27/242141 ? Home Health Scheduler: ? Procedure Note Donotclifinterpreter, Image - 05/27/[address] [place] [address] [address] Scan Report Signed Patient: Alix Sharp BMR#: [id number] 43 : 1960cct:[id number] Age/Sex: 64 / FADM Date: 05/27/24 Loc: HO.ED Attending Dr: Ordering Physician: Jerod Simons Date of Service: 05/27/24 Procedure(s): CT head/brain wo IV con Accession Number(s): [id number] cc: Marita Wetzel DO; Jerod Simons Report Number: [id number]: Total DLP = 1132.00 mGy-cm CLINICAL HISTORY: [...] in OV> 05/27/242142 DD/ 41 TD/TT: 05/27/242141 Home Health Scheduler: [facility] External Provider IMG CT PROCEDURES Final Result * POCT HGB A1C (12/09/2023 9:43 AM EDT) Hemoglobin A1C 5.9 4.0 - 6.0 % QC Media Lot # [id number] Lot# Expiration Date ,043,026 Blood 12/09/2023 9:43 AM EDT Marita Wetzel DO POINT OF CARE TEST ENTER/HUMBERTO T ORDERABLES Final Result * (ABNORMAL) Lipid Panel, Standard (10/06/2023) Triglycerides 157 40 - 160 mg/dL Cholesterol 115 0 - 200 mg/dL HDL Cholesterol 31(A) 35 - 70 mg/dL LDL Cholesterol 57 mg/dL Blood Venous blood specimen / Unknown Result [facility] Historical Provider LAB BLOOD ORDERABLES Carly l Result * BI Mammogram Screening Tomosynthesis Bilateral (07/17/2023 10:45 AM EDT) Anatomical Region Laterality Modality Breast Bilateral Mammography 07/17/2023 10:4 5 AM EDT Narrative 08/03/2023 8:29 PM EDT ? [facility] ? [address] ?[place] [address] ? Mammography Report ? Signed ? Patient: West Batista,Alix F ?MR#: ?? [id number] ? : 1960 ?Acct:[id number] ? Age/Sex: 63 / F ?ADM Date: 03/28/24 ? Loc: HO.MAMMO ? Attending Dr: Marita Wetzel DO ? Ordering Physician: Marita Wetzel DO ?Results: 2B ?? enign Findings ? Date of Service: 07/17/23 ?Follow Up: 1 Year From Orig ?? inal Mammogram ? Procedure(s): MM tomosynthesis screening BI ?? Accession Number(s): [id number] ? cc: Marita Wetzel DO ? EXAMINATION: [...] 08/03/232024 ? DD/ 44 ? TD/TT: ? Home Health Scheduler: ? Procedure Note Donotuseinterpreter, Image - 08/03/2023 [facility] [address] [place] [address] Mammography Report Signed Patient: Alix Denins FMR#: [id number] : 1960cct:[id number] Age/Sex: 63 / FADM Date: 07/17/23 Loc: HO.MAMMO Attending Dr: Marita Wetzel DO Ordering Physician: Marita Wetzelults: 2B enign Findings Date of Service: 07/17/23Follow Up: 1 Year From Orig inal Mammogram Procedure(s): MM tomosynthesis screening BI Accession Number(s): [id number] cc: Marita Wetzel DO EXAMINATION: MM SCREENING [...] MD in OV> 08/03/232024 DD/ 1045 TD/TT: Home Health Scheduler: Marita Wetzel DO IMG BI PROCEDURES Edited [...] Payer (Ef fective 2019-Present) Name:Lynne AronAlix Member ID:[id number] Relation to Subscriber:Self Name:Alix Toussaint Subscriber ID:[id number] Payer ID:[facility] Group ID:Not on file Type:Medicare Address: [facility] [address] [address] [facility] [employer] Care Teams Alterations Workroom Clerk Relationship Specialty Start Date End Date Marita Wetzel DO [address] [place] [address] PCP - General Family Medicine 04/21/18 [facility] 05/22/24
--- OUTSIDE RECORDS SUMMARY | 2024-07-28 11:53 | XMS_ITS | Encounter Summary ---
Author Organization [facility] Address [address] [place] [address] Care Team Providers Care Deckhand Oyster Dredge Name Role Phone Marita Wetzel Primary Care Provider [phone]- [phone] Encounter Details Date Type Department Care Team (Late st Contact Info) Description 04/02/2024 Lab Requisition [facility] - Main Lab 299 [facility] [place] [id number] Marily Gordillo MD [address] [place] [phone] Chronic embolism and thrombosis of unspecified vein; [...] developed and the performance characteristics determined by [facility]. This confirmation testing has not been cleared or approved by the FDA. The laboratory is regulated under CLIA as qualified to perform high-complexity testing. This test is used for patient testing purposes. It should not be regarded as investigational or for research. Test performed at [facility], [address], [place], [place] ??[address] ? [phone] Ashtyn Leigh MD, PhD - [place] Former Brace End Blood Venous blood specimen / Unknown Venipuncture / Unknown 04/05/2024 6:56 AM EST 04/05/2024 10:25 AM EST us Marily Gordillo MD LAB BLOOD ORDERABLES Final Resul t [place] [address] * (ABNORMAL) Renal function panel (04/05/2024 6:56 AM EST) Sodium 138 133 - 145 mmol/L LAB CHEMISTRY METHOD 04/05/2024 11:52 AM [facility] Potassium 5.0 3.5 - 5.5 mmol/L LAB CHEMISTRY METHOD 04/05/2024 11:52 AM [facility] Chloride 107 96 - 110 mmol/L LAB CHEMISTRY METHOD 04/05/2024 11:52 AM [facility] CO2 20(L) 21 - 32 mmol/L LAB CHEMISTRY METHOD 04/05/2024 11:52 AM [facility] Anion Gap 11 3 - 11 LAB CHEMISTRY METHOD 04/05/2024 11:52 AM [facility] Glucose 104(H) 70 - 100 mg/dL LAB CHEMISTRY METHOD 04/05/2024 11:52 AM [facility] BUN 56(H) 5 - 25 mg/dL LAB CHEMISTRY METHOD 04/05/2024 11:52 AM [facility] Creatinine 4.43(H) 0.50 - 1.10 mg/dL LAB CHEMISTRY METHOD 04/05/2024 11:52 AM [facility] eGFR 11(L) >=60 mL/min/1. 73m2 LAB CHEMISTRY METHOD 04/05/2024 11:52 AM [facility] Comment:Calculation based on the??Chronic Kidney Disease Epidemiology Collaboration (CKD-EPI) equation refit??without adjustment for race. BUN/Creatinine Ratio 12.6 LAB CHEMISTRY METHOD 04/05/2024 11:52 AM [facility] Albumin 1.9(L) 3.2 - 5.0 g/dL LAB CHEMISTRY METHOD 04/05/2024 11:52 AM EST [facility] Calcium 9.0 8.5 - 10.5 mg/dL LAB CHEMISTRY METHOD 04/05/2024 11:52 AM [facility] Phosphorus 3.1 2.5 - 4.5 mg/dL LAB CHEMISTRY METHOD 04/05/2024 11:52 AM [facility] Blood Venous blood specimen / Unknown Venipuncture / Unknown 04/05/2024 6:56 AM EST 04/05/2024 10:21 AM EST us Marily Gordillo MD LAB BLOOD ORDERABLES Final Resul t [facility] [address] [place] [address], * (ABNORMAL) Complete blood count (04/05/2024 6:56 AM EST) WBC 9.2 4.8 - 10.8 K/mcL LAB HEMETOLOGY METHOD 04/05/2024 10:42 AM [facility] RBC 2.50(L) 3.80 - 4.80 M/mcL LAB HEMETOLOGY METHOD 04/05/2024 10:42 AM [facility] Hemoglobin 6.8(L) 11.5 - 16.0 g/dL LAB HEMETOLOGY METHOD 04/05/2024 10:42 AM [facility] Hematocrit 24.8(L) 35.0 - 47.0 % LAB HEMETOLOGY METHOD 04/05/2024 10:42 AM [facility] MCV 99.6(H) 79.0 - 98.0 FL LAB HEMETOLOGY METHOD 04/05/2024 10:42 AM [facility] MCH 27.3 27.0 - 32.0 pcg LAB HEMETOLOGY METHOD 04/05/2024 10:42 AM [facility] MCHC 27.4(L) 32.0 - 37.0 g/dL LAB HEMETOLOGY METHOD 04/05/2024 10:42 AM EST [facility] RDW 16.7(H) 11.0 - 15.0 % LAB HEMETOLOGY METHOD 04/05/2024 10:42 AM [facility] Platelets 332 130 - 400 K/mcL LAB HEMETOLOGY METHOD 04/05/2024 10:42 AM [facility] MPV 10.2 7.0 - 11.0 FL LAB HEMETOLOGY METHOD 04/05/2024 10:42 AM [facility] NRBC 0.0 <1.0 % LAB HEMETOLOGY METHOD 04/05/2024 10:42 AM [facility] NRBC Absolute 0.00 <0.10 K/mcL LAB HEMETOLOGY METHOD 04/05/2024 10:42 AM [facility] Blood Venous blood specimen / Unknown Venipuncture / Unknown 04/05/2024 6:56 AM EST 04/05/2024 10:26 AM EST us Marily Gordillo MD LAB BLOOD ORDERABLES Final Resul t [facility] [address] [place] [address], documented in this encounter Visit Diagnoses Diagnosis Chronic embolism and thrombosis of unspecified vein Acute kidney failure, unspecified (CMS/HCC) Acute kidney failure, unspecified documented in this encounter Care Teams Deckhand Oyster Dredge Relationship Specialty Start Date End Date Marita Wetzel DO [address] [place] [address] PCP - General 01/09/23 documented as of this encounter
--- OUTSIDE RECORDS SUMMARY | 2024-07-28 11:53 | XMS_ITS | Encounter Summary ---
Author Organization [facility] Address [address] [place] [address] Care Team Providers Care Housing Director Name Role Phone Mary JaneMarita yousif Primary Care Provider +1- [phone] Encounter Details Date Type Department Care Team (Late st Contact Info) Description 03/01/2024 Lab Requisition [facility] - Main Lab 299 [facility] [place] [address] Catalina Burr MD [address] [place] [address] End stage renal disease (CMS/HCC); Type 2 [...] LAB CHEMISTRY METHOD 03/01/2024 11:27 AM EST [facility] Blood Venous blood specimen / Unknown Venipuncture / Unknown 03/01/2024 6:56 AM EST 03/01/2024 9:07 AM EST Catalina Burr MD LAB BLOOD ORDERABLES Final Resul t Performing Organization Address City/[facility]/ZIP Co de Phone Number [facility] [address] [place] [address], [place] [phone] * (ABNORMAL) Iron (03/01/2024 6:56 AM EST) Pathologist [facility] Iron 29(L) 40 - 150 mcg/dL LAB CHEMISTRY METHOD 03/01/2024 11:22 AM EST [facility] Blood Venous blood specimen / Unknown Venipuncture / Unknown 03/01/2024 6:56 AM EST 03/01/2024 9:07 AM EST Catalina Burr MD LAB BLOOD ORDERABLES Final Resul t [facility] [address] [place] [address], [place] [phone] * Tacrolimus level (03/01/2024 6:56 AM EST) [...] research. Test performed at [facility], [facility] [address] [place], [place] ??[address] ? [phone] Ashtyn Leigh MD, PhD - Wine Specialist Blood Venous blood specimen / Unknown Venipuncture / Unknown 03/01/2024 6:56 AM EST 03/01/2024 9:07 AM EST us Catalina Burr MD LAB BLOOD ORDERABLES Final Resul t [place] [address] * (ABNORMAL) Renal function panel (03/01/2024 6:56 AM EST) Sodium 140 133 - 145 mmol/L LAB CHEMISTRY METHOD 03/01/2024 11:04 AM [facility] Potassium 3.4(L) 3.5 - 5.5 mmol/L LAB CHEMISTRY METHOD 03/01/2024 11:04 AM [facility] Chloride 107 96 - 110 mmol/L LAB CHEMISTRY METHOD 03/01/2024 11:04 AM [facility] CO2 24 21 - 32 mmol/L LAB CHEMISTRY METHOD 03/01/2024 11:04 AM [facility] Anion Gap 9 3 - 11 LAB CHEMISTRY METHOD 03/01/2024 11:04 AM [facility] Glucose 107(H) 70 - 100 mg/dL LAB CHEMISTRY METHOD 03/01/2024 11:04 AM [facility] BUN 26(H) 5 - 25 mg/dL LAB CHEMISTRY METHOD 03/01/2024 11:04 AM [facility] Creatinine 2.88(H) 0.50 - 1.10 mg/dL LAB CHEMISTRY METHOD 03/01/2024 11:04 AM [facility] eGFR 18(L) >=60 mL/min/1. 73m2 LAB CHEMISTRY METHOD 03/01/2024 11:04 AM [facility] Comment:Calculation based on the??Chronic Kidney Disease Epidemiology Collaboration (CKD-EPI) equation refit??without adjustment for race. BUN/Creatinine Ratio 9.0 LAB CHEMISTRY METHOD 03/01/2024 11:04 AM [facility] Albumin 2.3(L) 3.2 - 5.0 g/dL LAB CHEMISTRY METHOD 03/01/2024 11:04 AM [facility] Calcium 8.9 8.5 - 10.5 mg/dL LAB CHEMISTRY METHOD 03/01/2024 11:04 AM [facility] Phosphorus 1.9(L) 2.5 - 4.5 mg/dL LAB CHEMISTRY METHOD 03/01/2024 11:04 AM [facility] Blood Venous blood specimen / Unknown Venipuncture / Unknown 03/01/2024 6:56 AM EST 03/01/2024 9:07 AM EST us Catalina Burr MD LAB BLOOD ORDERABLES Final Resul t [facility] [address] [place] [address], * (ABNORMAL) Complete blood count (03/01/2024 6:56 AM EST) WBC 10.2 4.8 - 10.8 K/mcL LAB HEMETOLOGY METHOD 03/01/2024 10:46 AM [facility] RBC 2.70(L) 3.80 - 4.80 M/mcL LAB HEMETOLOGY METHOD 03/01/2024 10:46 AM [facility] Hemoglobin 7.5(L) 11.5 - 16.0 g/dL LAB HEMETOLOGY METHOD 03/01/2024 10:46 AM [facility] Hematocrit 26.1(L) 35.0 - 47.0 % LAB HEMETOLOGY METHOD 03/01/2024 10:46 AM [facility] MCV 97.8 79.0 - 98.0 FL LAB HEMETOLOGY METHOD 03/01/2024 10:46 AM [facility] MCH 28.1 27.0 - 32.0 pcg LAB HEMETOLOGY METHOD 03/01/2024 10:46 AM [facility] MCHC 28.7(L) 32.0 - 37.0 g/dL LAB HEMETOLOGY METHOD 03/01/2024 10:46 AM EST [facility] RDW 16.7(H) 11.0 - 15.0 % LAB HEMETOLOGY METHOD 03/01/2024 10:46 AM EST [facility] Platelets 235 130 - 400 K/mcL LAB HEMETOLOGY METHOD 03/01/2024 10:46 AM [facility] MPV 10.8 7.0 - 11.0 FL LAB HEMETOLOGY METHOD 03/01/2024 10:46 AM EST [facility] NRBC 0.0 <1.0 % LAB HEMETOLOGY METHOD 03/01/2024 10:46 AM [facility] NRBC Absolute 0.00 <0.10 K/mcL LAB HEMETOLOGY METHOD 03/01/2024 10:46 AM [facility] Blood Venous blood specimen / Unknown Venipuncture / Unknown 03/01/2024 6:56 AM EST 03/01/2024 9:07 AM EST us Catalina Burr MD LAB BLOOD ORDERABLES Final Resul t [facility] [address] [place] [address], documented in this encounter Visit Diagnoses Diagnosis End stage renal disease (CMS/[facility]) End stage renal disease Type 2 diabetes mellitus without complications documented in this encounter Care Teams Housing Director Relationship Specialty Start Date End Date Marita Wetzel DO [address] [place] [address] PCP - General 01/09/23 documented as of this encounter
--- OUTSIDE RECORDS SUMMARY | 2024-07-28 11:53 | XMS_ITS | Encounter Summary ---
Author Organization [facility] Address [address] [place] [address] Care Team Providers Care Stock Digger Name Role Phone Marita Wetzel Primary Care Provider +1- [phone] Encounter Details Date Type Department Care Team (Late st Contact Info) Description 02/25/2024 Lab Requisition [facility] - Main Lab 299 [facility] [place] [address] Catalina Burr MD [address] [place] [address] Chronic embolism and thrombosis of unspecified vein; [...] Travel phlebotomy fee (02/25/2024 6:30 AM EST) [facility] TRAVEL PHLEBOTOMY FEE Completed 02/25/2024 11:01 AM EST [facility] Blood Venous blood specimen / Unknown Venipuncture / Unknown 02/25/2024 6:30 AM EST 02/25/2024 10:25 AM EST us Catalina Burr MD LAB BLOOD ORDERABLES Final [facility]ul t [facility] [address] [place] [address], * (ABNORMAL) Tacrolimus level (02/25/2024 6:30 AM [...] or for research. Test performed at [facility], [address] , [place], [place] ??[address] ? [phone] Ashtyn Leigh MD, PhD - Tube Backer Blood Venous blood specimen / Unknown Venipuncture / Unknown 02/25/2024 6:30 AM EST 02/25/2024 10:25 AM EST us Catalina Burr MD LAB BLOOD ORDERABLES Final Resul t [facility] [address] [place] [address] documented in this encounter Visit Diagnoses Diagnosis Chronic embolism and thrombosis of unspecified vein Acute kidney failure, unspecified (CMS/HCC) Acute kidney failure, unspecified documented in this encounter Care Teams Stock Digger Relationship Specialty Start Date End Date Marita Wetzel DO [address] [place] [address] PCP - General 01/09/23 documented as of this encounter
--- OUTSIDE RECORDS SUMMARY | 2024-07-28 11:53 | XMS_ITS | Encounter Summary ---
Author Organization [facility] Address [address] [place] [address] Care Team Providers Care Painter And Paperhanger Apprentice Name Role Phone Mary JaneMarita yousif Primary Care Provider +1- [phone] Encounter Details Date Type Department Care Team (Late st Contact Info) Description 03/19/2024 Lab Requisition [facility] - Main Lab 299 [facility] [place] [address] Catalina Burr MD [address] [place] [address] Chronic embolism and thrombosis of unspecified vein; [...] investigational or for research. Test performed at [facility], [address], [place], [place] ??[address] ? [phone] Ashtyn Leigh MD, PhD - Baby Formula Mixer Blood Venous blood specimen / Unknown Venipuncture / Unknown 03/22/2024 6:50 AM EST 03/22/2024 8:05 AM EST us Catalina Burr MD LAB BLOOD ORDERABLES Final Resul t [facility] [address] [place] [address] * (ABNORMAL) Renal function panel (03/22/2024 6:50 AM EST) Sodium 138 133 - 145 mmol/L LAB CHEMISTRY METHOD 03/22/2024 8:55 AM [facility] Potassium 4.6 3.5 - 5.5 mmol/L LAB CHEMISTRY METHOD 03/22/2024 8:55 AM [facility] Chloride 107 96 - 110 mmol/L LAB CHEMISTRY METHOD 03/22/2024 8:55 AM [facility] CO2 20(L) 21 - 32 mmol/L LAB CHEMISTRY METHOD 03/22/2024 8:55 AM [facility] Anion Gap 11 3 - 11 LAB CHEMISTRY METHOD 03/22/2024 8:55 AM [facility] Glucose 158(H) 70 - 100 mg/dL LAB CHEMISTRY METHOD 03/22/2024 8:55 AM [facility] BUN 51(H) 5 - 25 mg/dL LAB CHEMISTRY METHOD 03/22/2024 8:55 AM [facility] Creatinine 4.91(H) 0.50 - 1.10 mg/dL LAB CHEMISTRY METHOD 03/22/2024 8:55 AM [facility] eGFR 9(L) >=60 mL/min/1. 73m2 LAB CHEMISTRY METHOD 03/22/2024 8:55 AM [facility] Comment:Calculation based on the??Chronic Kidney Disease Epidemiology Collaboration (CKD-EPI) equation refit??without adjustment for race. BUN/Creatinine Ratio 10.4 LAB CHEMISTRY METHOD 03/22/2024 8:55 AM EST [facility] Albumin 2.1(L) 3.2 - 5.0 g/dL LAB CHEMISTRY METHOD 03/22/2024 8:55 AM [facility] Calcium 9.0 8.5 - 10.5 mg/dL LAB CHEMISTRY METHOD 03/22/2024 8:55 AM [facility] Phosphorus 3.4 2.5 - 4.5 mg/dL LAB CHEMISTRY METHOD 03/22/2024 8:55 AM [facility] Blood Venous blood specimen / Unknown Venipuncture / Unknown 03/22/2024 6:50 AM EST 03/22/2024 8:05 AM EST us Catalina Burr MD LAB BLOOD ORDERABLES Final Resul t [facility] [address] [place] [address], [place] [phone] * (ABNORMAL) Complete blood count (03/22/2024 6:50 AM EST) WBC 10.4 4.8 - 10.8 K/mcL LAB HEMETOLOGY METHOD 03/22/2024 8:32 AM [facility] RBC 2.80(L) 3.80 - 4.80 M/mcL LAB HEMETOLOGY METHOD 03/22/2024 8:32 AM [facility] Hemoglobin 7.9(L) 11.5 - 16.0 g/dL LAB HEMETOLOGY METHOD 03/22/2024 8:32 AM [facility] Hematocrit 27.8(L) 35.0 - 47.0 % LAB HEMETOLOGY METHOD 03/22/2024 8:32 AM [facility] MCV 98.6(H) 79.0 - 98.0 FL LAB HEMETOLOGY METHOD 03/22/2024 8:32 AM EST [facility] MCH 28.0 27.0 - 32.0 pcg LAB HEMETOLOGY METHOD 03/22/2024 8:32 AM EST [facility] MCHC 28.4(L) 32.0 - 37.0 g/dL LAB HEMETOLOGY METHOD 03/22/2024 8:32 AM EST [facility] RDW 17.8(H) 11.0 - 15.0 % LAB HEMETOLOGY METHOD 03/22/2024 8:32 AM EST [facility] Platelets 218 130 - 400 K/mcL LAB HEMETOLOGY METHOD 03/22/2024 8:32 AM [facility] MPV 10.7 7.0 - 11.0 FL LAB HEMETOLOGY METHOD 03/22/2024 8:32 AM EST [facility] NRBC 0.0 <1.0 % LAB HEMETOLOGY METHOD 03/22/2024 8:32 AM [facility] NRBC Absolute 0.00 <0.10 K/mcL LAB HEMETOLOGY METHOD 03/22/2024 8:32 AM [facility] Blood Venous blood specimen / Unknown Venipuncture / Unknown 03/22/2024 6:50 AM EST 03/22/2024 8:05 AM EST us Catalina Burr MD LAB BLOOD ORDERABLES Final Resul t [facility] [address] [place] [address], [place] [phone] documented in this encounter Visit Diagnoses Diagnosis Chronic embolism and thrombosis of unspecified vein Acute kidney failure, unspecified (CMS/HCC) Acute kidney failure, unspecified Type 2 diabetes mellitus without complications documented in this encounter Care Teams Painter And Paperhanger Apprentice Relationship Specialty Start Date End Date Marita Wetzel DO [address] [place] [address] PCP - General 01/09/23 documented as of this encounter
--- OUTSIDE RECORDS SUMMARY | 2024-07-28 11:53 | XMS_ITS | Encounter Summary ---
Author Organization [facility], Address [address] [place] [address] Phone Care Team Providers Care Corrugated Sheet Material Sheeter Name Role Phone Marita Wetzel DO Primary Care Provider Unava ilable Reason for Visit * Reason Comments Med Refill Encounter Details Date Type Department Care Team (Late Contact Info) Description 05/08/2021 Refill [facility] [address] [place] [phone] Bernardo Doty MD [address] [place] [address] [place] [address] Social History Tobacco Use Types [...] Only [facility] - [facility] [address] [place] [address] [place] [address] documented as of this encounter Visit Diagnoses Not on filedocumented in this encounter Care Teams Corrugated Sheet Material Sheeter Relationship Specialty Start Date End Date Marita Wetzel DO [address] [place] [address] PCP - General Family Medicine 7/27/23 documented as of this encounter
--- OUTSIDE RECORDS SUMMARY | 2024-07-28 11:53 | XMS_ITS | Encounter Summary ---
Author Organization [facility], Address [address] [place] [address] Phone Care Team Providers Care Inspector Brake Lining Name Role Phone Marita Wetzel DO Primary Care Provider Unava ilable Reason for Visit * Reason Comments Med Refill Encounter Details Date Type Department Care Team (Late Contact Info) Description 01/04/2021 Refill [facility] [address] [place] [phone] Bernardo Doty MD [address] [place] [address] [place] [address] Social History Tobacco Use Types [...] Only [facility] - [facility] [address] [place] [address] [place] [id number] documented as of this encounter Visit Diagnoses Not on filedocumented in this encounter Care Teams Inspector Brake Lining Relationship Specialty Start Date End Date Marita Wetzel DO [address] [place] [address] PCP - General Family Medicine 7/27/23 documented as of this encounter
--- OUTSIDE RECORDS SUMMARY | 2024-07-28 11:53 | XMS_ITS | Encounter Summary ---
Author Organization [facility] Address [address] [place] [address] Care Team Providers Care Tanner Rotary Drum Continuous Process Name Role Phone Mary JaneMarita yousif Primary Care Provider +1- [phone] Encounter Details Date Type Department Care Team (Late st Contact Info) Description 02/24/2024 Lab Requisition [facility] - Main Lab [address] [facility] [place] [address] Norbert Lopez MD 38 [facility] 204 [facility] [phone] Encounter for other specified prophylactic measures; [...] Travel phlebotomy fee (02/24/2024 12:45 PM EST) [facility] HOME TRAVEL PHLEBOTOMY FEE Completed 02/24/2024 2:01 PM EST [facility] Blood Venous blood specimen / Unknown Venipuncture / Unknown 02/24/2024 12:45 PM EST 02/24/2024 1:29 PM EST Norbert Lopez MD LAB BLOOD ORDERABLES Final Resul t Performing Organization Address [facility] Co de Phone Number [facility] [address] [place] [address], [place] [phone] * (ABNORMAL) Heparin and low molecular weight anti Xa level (02/24/2024 12:45 PM EST) [facility] Heparin Anti-Xa 0.28(L) 0.30 - 0.70 I Unit/mL LAB COAGULATION METHOD 02/24/2024 2:02 PM EST [facility] Blood Venous blood specimen / Unknown Venipuncture / Unknown 02/24/2024 12:45 PM EST 02/24/2024 1:29 PM EST Narrative [facility] - 02/24/2024 2:02 PM EST Therapeutic range listed is for Unfractionated Heparin. LMW Heparin therapeutic range: 0.50-1.20 IU/mL Norbert Lopez MD LAB BLOOD ORDERABLES Final Resul t Performing Organization Address [facility]/ZIP Co de Phone Number [facility] [address] [place] [address], [place] [phone] * (ABNORMAL) Basic metabolic panel (02/24/2024 12:45 PM EST) [facility] Sodium 137 133 - 145 mmol/L LAB CHEMISTRY METHOD 02/24/2024 3:10 PM EST [facility] Potassium 3.7 3.5 - 5.5 mmol/L LAB CHEMISTRY METHOD 02/24/2024 3:10 PM [facility] Chloride 104 96 - 110 mmol/L LAB CHEMISTRY METHOD 02/24/2024 3:10 PM [facility] CO2 22 21 - 32 mmol/L LAB CHEMISTRY METHOD 02/24/2024 3:10 PM [facility] Anion Gap 11 3 - 11 LAB CHEMISTRY METHOD 02/24/2024 3:10 PM [facility] Glucose 163(H) 70 - 100 mg/dL LAB CHEMISTRY METHOD 02/24/2024 3:10 PM [facility] BUN 33(H) 5 - 25 mg/dL LAB CHEMISTRY METHOD 02/24/2024 3:10 PM [facility] Creatinine 3.25(H) 0.50 - 1.10 mg/dL LAB CHEMISTRY METHOD 02/24/2024 3:10 PM [facility] eGFR 15(L) >=60 mL/min/1. 73m2 LAB CHEMISTRY METHOD 02/24/2024 3:10 PM [facility] Comment:Calculation based on the??Chronic Kidney Disease Epidemiology Collaboration (CKD-EPI) equation refit??without adjustment for race. BUN/Creatinine Ratio 10.2 LAB CHEMISTRY METHOD 02/24/2024 3:10 PM [facility] Calcium 9.4 8.5 - 10.5 mg/dL LAB CHEMISTRY METHOD 02/24/2024 3:10 PM [facility] Blood Venous blood specimen / Unknown Venipuncture / Unknown 02/24/2024 12:45 PM EST 02/24/2024 1:29 PM EST us Norbert Lopez MD LAB BLOOD ORDERABLES Final Resul t [facility] [address] [place] [address], [place] [phone] * (ABNORMAL) Complete blood count (02/24/2024 12:45 PM EST) [facility] Signature WBC 11.3(H) 4.8 - 10.8 K/mcL LAB HEMETOLOGY METHOD 02/24/2024 1:38 PM [facility] RBC 3.30(L) 3.80 - 4.80 M/mcL LAB HEMETOLOGY METHOD 02/24/2024 1:38 PM [facility] Hemoglobin 9.2(L) 11.5 - 16.0 g/dL LAB HEMETOLOGY METHOD 02/24/2024 1:38 PM [facility] Hematocrit 31.3(L) 35.0 - 47.0 % LAB HEMETOLOGY METHOD 02/24/2024 1:38 PM [facility] MCV 95.4 79.0 - 98.0 FL LAB HEMETOLOGY METHOD 02/24/2024 1:38 PM [facility] MCH 28.0 27.0 - 32.0 pcg LAB HEMETOLOGY METHOD 02/24/2024 1:38 PM [facility] MCHC 29.4(L) 32.0 - 37.0 g/dL LAB HEMETOLOGY METHOD 02/24/2024 1:38 PM [facility] RDW 16.6(H) 11.0 - 15.0 % LAB HEMETOLOGY METHOD 02/24/2024 1:38 PM [facility] Platelets 278 130 - 400 K/mcL LAB HEMETOLOGY METHOD 02/24/2024 1:38 PM [facility] MPV 10.7 7.0 - 11.0 FL LAB HEMETOLOGY METHOD 02/24/2024 1:38 PM [facility] NRBC 0.0 <1.0 % LAB HEMETOLOGY METHOD 02/24/2024 1:38 PM EST [facility] NRBC Absolute 0.00 <0.10 K/mcL LAB HEMETOLOGY METHOD 02/24/2024 1:38 PM EST [facility] Blood Venous blood specimen / Unknown Venipuncture / Unknown 02/24/2024 12:45 PM EST 02/24/2024 1:29 PM EST us Norbert Lopez MD LAB BLOOD ORDERABLES Final Resul t [facility] [address] [place] [address], documented in this encounter Visit Diagnoses Diagnosis Encounter for other specified prophylactic measures Acute kidney failure, unspecified (CMS/HCC) Acute kidney failure, unspecified documented in this encounter Care Teams Tanner Rotary Drum Continuous Process Relationship Specialty Start Date End Date Marita Wetzel DO [address] [place] [address] PCP - General 01/09/23 documented as of this encounter
--- OUTSIDE RECORDS SUMMARY | 2024-07-28 11:53 | XMS_ITS | Encounter Summary ---
Author Organization [facility] Address [address] [place] [address] Phone Care Team Providers Care Chemistry Manager Name Role Phone Marita Wetzel DO Primary Care Provider Unava ilable Encounter Details Date Type Department Care Team (Late st Contact Info) Description 04/13/2024 Documentation Only [facility] [address] [place] [phone] [place] [address] [place] [phone] Social History Tobacco Use Types Packs/Day Years [...] [facility] [address] [place] [phone] documented as of this encounter Visit Diagnoses Not on filedocumented in this encounter Care Teams Chemistry Manager Relationship Specialty Start Date End Date Marita Wetzel DO [address] [place] [address] PCP - General Family Medicine 11/14/22 documented as of this encounter
--- OUTSIDE RECORDS SUMMARY | 2024-07-28 11:53 | XMS_ITS | Encounter Summary ---
Author Organization [facility], Address [address] [place] [phone] Phone Care Team Providers Care Cafeteria Director Name Role Phone Marita Wetzel DO Primary Care Provider Unava ilable Reason for Visit * Reason Comments Med Refill Encounter Details Date Type Department Care Team (Late Contact Info) Description 06/18/2024 Refill [facility] [address] [place] [phone] Srinivas Agrawal MD [address] [place] [address] [place] [address] Social History Tobacco Use Types [...] Only [facility], - Vascular Access Center [address] [place] [address] [place] [address] documented as of this encounter Procedures Procedure Name Priority Date/Time Associated Diagnosis Comments HD KINETICS Routine 06/18/2024 POST CHEMISTRY Routine 06/18/2024 IMMUNO CHEMISTRY Routine 06/18/2024 HEMATOLOGY Routine 06/18/2024 CHEMISTRY Routine 06/18/2024 CHEMISTRY Routine 06/18/2024 [facility] LAB RESULTS Routine 06/18/2024 documented in this encounter Results * [facility] Lab Results (06/18/2024) eKt/V (Tattersall) 1.28 Knowledge Center WSTDKT/V 0.8 Knowledge Center spKt/V (Daugirdas II) 1.50 Knowledge Center 06/18/2024 06/18/2024 [facility] [place] Provider LAB BLOOD ORDERABLES Final Result [facility] Contact Performing lab Unknown, [place] * HD KINETICS (06/18/2024) Pathologist [facility] % Urea Reduction 70 65 - 80 % [facility] 06/18/2024 06/22/2024 9:5 5 AM EST Narrative Resulting Agency Comment Specimen source: Plasma Srinivas Agrawal MD LAB BLOOD ORDERABLES Final Result [facility] See order comments or contact performing lab Unknown, [place] * POST CHEMISTRY (06/18/2024) BUN Post Dialysis 13 6 - 19 mg/dL [facility] 06/18/2024 06/22/2024 9:5 5 AM EST Narrative [facility] - 06/22/2024 Unless otherwise specified, test(s) performed at: [facility], [address] [place], [place] [phone] JEWEL SETTER: Dwayne Fuentes M.D. For any questions, please call customer service at FREQUENCY:MONTHLY Resulting Agency Comment Specimen source: Plasma Srinivas Agrawal MD LAB BLOOD ORDERABLES Final Result [facility] See order comments or contact performing lab Unknown, [place] * IMMUNO CHEMISTRY (06/18/2024) Pathologist [facility] Hep B Surface Ag Negative Negative [facility] 06/18/2024 06/19/2024 11: 21 AM EST Narrative Resulting Agency Comment Specimen source: Serum Srinivas Agrawal MD LAB BLOOD ORDERABLES Final Result Performing Organization Address City/[facility]/ZIP Co de Phone Number [facility] See order comments or contact performing [...] Labs Ferritin 1,648(H) 10 - 291 ng/mL [facility] 06/18/2024 06/19/2024 11: 21 AM EST Narrative [facility] - 06/19/2024 Unless otherwise specified, test(s) performed at: [facility], [address] [place], [place] [id number] JEWEL SETTER: Dwayne Fuentes M.D. For any questions, please call customer service at FREQUENCY:MONTHLY Resulting Agency Comment Specimen source: Serum Srinivas Agrawal MD LAB BLOOD ORDERABLES Edite d Result - Final Performing Organization Address City/[facility]/ZIP Co de Phone Number [facility] See order comments or contact performing lab Unknown, [place] * (ABNORMAL) HEMATOLOGY (06/18/2024) Hemoglobin 7.9(L) 12.0 - 16.0 g/dL [facility] Hemoglobin x 3 23.7(L) 36.0 - 48.0 % [facility] 06/18/2024 06/19/2024 12: 24 PM EST Narrative [facility] - 06/19/2024 Unless otherwise specified, test(s) performed at: [facility], [address] [place] [id number] JEWEL SETTER: Dwayne Fuentes M.D. For any questions, please call customer service at FREQUENCY:MONTHLY Resulting Agency Comment Specimen source: Blood Srinivas Agrawal MD LAB BLOOD ORDERABLES Final Result Performing Organization Address [facility] de Phone Number [facility] See order comments or contact performing lab Unknown, [place] * (ABNORMAL) [facility] Chemistry (06/18/2024) PTH 145(H) 16 - 80 pg/mL [facility] 06/18/2024 06/19/2024 11: 40 AM EST Narrative [facility] - 06/19/2024 Unless otherwise specified, test(s) performed at: [facility], [address] [place] [address] JEWEL SETTER: Dwayne Fuentes M.D. For any questions, please call customer service at FREQUENCY:MONTHLY Resulting Agency Comment Specimen source: Plasma us Srinivas Agrawal MD LAB BLOOD ORDERABLES Final Result [facility] See order comments or contact performing lab Unknown, [place] documented in this encounter Visit Diagnoses Not on filedocumented in this encounter Care Teams Cafeteria Director Relationship Specialty Start Date End Date Marita Wetzel DO [address] [place] [address] PCP - General Family Medicine 11/14/22 documented as of this encounter
--- OUTSIDE RECORDS SUMMARY | 2024-07-28 11:53 | XMS_ITS | Encounter Summary ---
Author Organization [facility] Address [address] [place] [address] Care Team Providers Care Business Technology Teacher Name Role Phone Marita Wetzel DO Primary Care Provider +1- [phone] Encounter Details Date Type Department Care Team (Late st Contact Info) Description 03/15/2024 Lab Requisition [facility] - Main Lab [address] [facility] [place] [phone] Catalina Burr MD [address] [place] [address] Acute kidney failure, unspecified (CMS/HCC); Chronic embolism [...] vein documented in this encounter Care Teams Business Technology Teacher Relationship Specialty Start Date End Date Marita Wetzel DO [address] [place], [place] PCP - General 01/09/23 documented as of this encounter
--- OUTSIDE RECORDS SUMMARY | 2024-07-28 11:53 | XMS_ITS | Encounter Summary ---
Author Organization [facility] Address [address] [place] [address] Phone Care Team Providers Care Disaster Recovery Coordinator Name Role Phone Marita Wetzel DO Primary Care Provider Unava ilable Encounter Details Date Type Department Care Team (Late st Contact Info) Description 04/17/2024 Documentation Only [facility] [address] [place] [phone] [place] [address] [place] [phone] Social History Tobacco Use Types Packs/Day Years [...] [facility] V[facility] Center [address] [place] [phone] documented as of this encounter Visit Diagnoses Not on filedocumented in this encounter Care Teams Disaster Recovery Coordinator Relationship Specialty Start Date End Date Marita Wetzel DO [address] [place] [address] PCP - General Family Medicine 11/14/22 documented as of this encounter
--- OUTSIDE RECORDS SUMMARY | 2024-07-28 11:53 | XMS_ITS | Encounter Summary ---
Author Organization [facility], Address [address] [place] [address] Phone Care Team Providers Care Lawn And Tree Service Spray Supervisor Name Role Phone Marita Wetzel DO Primary Care Provider Unava ilable Reason for Visit * Reason Onset Date Comments Attempted to schedule port flush 07/28/2024 Encounter Details Date Type Department Care Team (Late st Contact Info) Description 07/28/2024 Telephone [facility] - [facility] [address] [address] Hazel Zepeda [address] [place] [address] Attempted to schedule port flush Social History Tobacco [...] * Telephone Encounter - Hazel Zepeda - 07/28/2024 10:38 AM EDT S/w pt. She reports that her abx were extended. She is going to ID today at 10:30 am. Author Parth lala [facility] and asked that she notify us when pt's abx are complete andthe last time they flush port so we can assume care and flushing of the port. Tesha agreed. documented in this encounter Plan of Treatment Upcoming Encounters Date Type Department Care Team (Late st Contact Info) Description 11/03/2024 12:30 PM EDT Scheduled Only [facility] [address] [place] [address] documented as of this encounter Visit Diagnoses Not on filedocumented in this encounter Care Teams Lawn And Tree Service Spray Supervisor Relationship Specialty Start Date End Date Marita Wetzel DO [address] [place] [address] PCP - General Family Medicine 11/14/22 documented as of this encounter
--- OUTSIDE RECORDS SUMMARY | 2024-07-28 11:53 | XMS_ITS | Encounter Summary ---
Author Organization [facility] Address [address] [place] [address] Care Team Providers Care Pedicab Driver Name Role Phone Marita Wetzel Primary Care Provider +1- [phone] Encounter Details Date Type Department Care Team (Late st Contact Info) Description 03/29/2024 Lab Requisition [facility] - Main Lab [address] [facility] [place] [address] Catalina Burr MD [address] [place] [address] End stage renal disease (CMS/HCC) Social History [...] developed and the performance characteristics determined by [facility]. This confirmation testing has not been cleared or approved by the FDA. The laboratory is regulated under CLIA as qualified to perform high-complexity testing. This test is used for patient testing purposes. It should not be regarded as investigational or for research. Test performed at [facility], [facility] [place], [place] ??[address] ? [phone] Ashtyn Leigh MD, PhD - Information Technology Program Manager Blood Venous blood specimen / Unknown Venipuncture / Unknown 03/29/2024 6:53 AM EST 03/29/2024 8:32 AM EST us Catalina Burr MD LAB BLOOD ORDERABLES Final Resul t [place] [address] * (ABNORMAL) Renal function panel (03/29/2024 6:53 AM EST) Sodium 140 133 - 145 mmol/L LAB CHEMISTRY METHOD 03/29/2024 10:07 AM [facility] Potassium 3.9 3.5 - 5.5 mmol/L LAB CHEMISTRY METHOD 03/29/2024 10:07 AM [facility] Chloride 109 96 - 110 mmol/L LAB CHEMISTRY METHOD 03/29/2024 10:07 AM [facility] CO2 20(L) 21 - 32 mmol/L LAB CHEMISTRY METHOD 03/29/2024 10:07 AM [facility] Anion Gap 11 3 - 11 LAB CHEMISTRY METHOD 03/29/2024 10:07 AM [facility] Glucose 146(H) 70 - 100 mg/dL LAB CHEMISTRY METHOD 03/29/2024 10:07 AM [facility] BUN 42(H) 5 - 25 mg/dL LAB CHEMISTRY METHOD 03/29/2024 10:07 AM [facility] Creatinine 3.47(H) 0.50 - 1.10 mg/dL LAB CHEMISTRY METHOD 03/29/2024 10:07 AM [facility] eGFR 14(L) >=60 mL/min/1. 73m2 LAB CHEMISTRY METHOD 03/29/2024 10:07 AM [facility] Comment:Calculation based on the??Chronic Kidney Disease Epidemiology Collaboration (CKD-EPI) equation refit??without adjustment for race. BUN/Creatinine Ratio 12.1 LAB CHEMISTRY METHOD 03/29/2024 10:07 AM [facility] Albumin 2.0(L) 3.2 - 5.0 g/dL LAB CHEMISTRY METHOD 03/29/2024 10:07 AM [facility] Calcium 8.8 8.5 - 10.5 mg/dL LAB CHEMISTRY METHOD 03/29/2024 10:07 AM [facility] Phosphorus 2.5 2.5 - 4.5 mg/dL LAB CHEMISTRY METHOD 03/29/2024 10:07 AM [facility] Blood Venous blood specimen / Unknown Venipuncture / Unknown 03/29/2024 6:53 AM EST 03/29/2024 8:32 AM EST us Catalina Burr MD LAB BLOOD ORDERABLES Final Resul t [facility] [address] [place] [address], * (ABNORMAL) Complete blood count (03/29/2024 6:53 AM EST) WBC 11.0(H) 4.8 - 10.8 K/mcL LAB HEMETOLOGY METHOD 03/29/2024 9:47 AM [facility] RBC 2.80(L) 3.80 - 4.80 M/mcL LAB HEMETOLOGY METHOD 03/29/2024 9:47 AM [facility] Hemoglobin 7.7(L) 11.5 - 16.0 g/dL LAB HEMETOLOGY METHOD 03/29/2024 9:47 AM [facility] Hematocrit 27.0(L) 35.0 - 47.0 % LAB HEMETOLOGY METHOD 03/29/2024 9:47 AM [facility] MCV 97.8 79.0 - 98.0 FL LAB HEMETOLOGY METHOD 03/29/2024 9:47 AM [facility] MCH 27.9 27.0 - 32.0 pcg LAB HEMETOLOGY METHOD 03/29/2024 9:47 AM [facility] MCHC 28.5(L) 32.0 - 37.0 g/dL LAB HEMETOLOGY METHOD 03/29/2024 9:47 AM EST [facility] RDW 17.5(H) 11.0 - 15.0 % LAB HEMETOLOGY METHOD 03/29/2024 9:47 AM [facility] Platelets 301 130 - 400 K/mcL LAB HEMETOLOGY METHOD 03/29/2024 9:47 AM [facility] MPV 10.3 7.0 - 11.0 FL LAB HEMETOLOGY METHOD 03/29/2024 9:47 AM EST [facility] NRBC 0.0 <1.0 % LAB HEMETOLOGY METHOD 03/29/2024 9:47 AM [facility] NRBC Absolute 0.00 <0.10 K/mcL LAB HEMETOLOGY METHOD 03/29/2024 9:47 AM [facility] Blood Venous blood specimen / Unknown Venipuncture / Unknown 03/29/2024 6:53 AM EST 03/29/2024 8:32 AM EST us Catalina Burr MD LAB BLOOD ORDERABLES Final Resul t [facility] [address] [place] [address], documented in this encounter Visit Diagnoses Diagnosis End stage renal disease (CMS/[facility]) End stage renal disease documented in this encounter Care Teams Pedicab Driver Relationship Specialty Start Date End Date Marita Wetzel DO [address] [place] [address] PCP - General 01/09/23 documented as of this encounter
--- OUTSIDE RECORDS SUMMARY | 2024-07-28 11:53 | XMS_ITS | Encounter Summary ---
Author Organization [facility] Address [address] [place] [address] Care Team Providers Care Bilingual Kindergarten Teacher Name Role Phone Mary JaneMarita yousif Primary Care Provider +1- [phone] Encounter Details Date Type Department Care Team (Late st Contact Info) Description 03/30/2024 Lab Requisition [facility] - Main Lab [address] [facility] [place] [address] Catalina Burr MD [address] [place] [address] Chronic embolism and thrombosis of unspecified vein; [...] CHEMISTRY METHOD 03/31/2024 12:06 PM EST [facility] Blood Venous blood specimen / Unknown Venipuncture / Unknown 03/31/2024 9:23 AM EST 03/31/2024 11:25 AM EST Catalina Burr MD LAB BLOOD ORDERABLES Final Resul t Performing Organization Address [facility]/ZIP Co de Phone Number [facility] [address] [place] [address], [place] [phone] * (ABNORMAL) Ferritin (03/31/2024 9:23 AM EST) Ferritin 6,203(H) 8 - 252 ng/mL LAB CHEMISTRY METHOD 03/31/2024 12:10 PM EST [facility] Blood Venous blood specimen / Unknown Venipuncture / Unknown 03/31/2024 9:23 AM EST 03/31/2024 11:25 AM EST Catalina Burr MD LAB BLOOD ORDERABLES Final Resul t Performing Organization Address [facility]/ZIP Co de Phone Number [facility] [address] [place] [address], [place] [phone] documented in this encounter Visit Diagnoses Diagnosis Chronic embolism and thrombosis of unspecified vein Acute kidney failure, unspecified (CMS/HCC) Acute kidney failure, unspecified documented in this encounter Care Teams Bilingual Kindergarten Teacher Relationship Specialty Start Date End Date Marita Wetzel DO [address] [place] [address] PCP - General 01/09/23 documented as of this encounter
--- OUTSIDE RECORDS SUMMARY | 2024-07-28 11:53 | XMS_ITS | Encounter Summary ---
Author Organization [facility] Address [address] [place] [address] Care Team Providers Care Percolator Operator Name Role Phone Mary JaneMarita yousif Primary Care Provider +1- [phone] Encounter Details Date Type Department Care Team (Late st Contact Info) Description 03/05/2024 Lab Requisition [facility] - Main Lab [address] [facility] [place] [address] Catalina Burr MD [address] [place] [address] Chronic embolism and thrombosis of unspecified vein; [...] [facility], [address], [place], [place] ??[address] ? [phone] Ashtyn Leigh MD, PhD - Donor Services Coordinator Blood Venous blood specimen / Unknown Venipuncture / Unknown 03/08/2024 6:29 AM EST 03/08/2024 7:46 AM EST us Catalina Burr MD LAB BLOOD ORDERABLES Final Resul t [facility] [address] [place] [address] * (ABNORMAL) Renal function panel (03/08/2024 6:29 AM EST) Sodium 139 133 - 145 mmol/L LAB CHEMISTRY METHOD 03/08/2024 8:58 AM [facility] Potassium 4.5 3.5 - 5.5 mmol/L LAB CHEMISTRY METHOD 03/08/2024 8:58 AM [facility] Chloride 108 96 - 110 mmol/L LAB CHEMISTRY METHOD 03/08/2024 8:58 AM [facility] CO2 20(L) 21 - 32 mmol/L LAB CHEMISTRY METHOD 03/08/2024 8:58 AM [facility] Anion Gap 11 3 - 11 LAB CHEMISTRY METHOD 03/08/2024 8:58 AM [facility] Glucose 93 70 - 100 mg/dL LAB CHEMISTRY METHOD 03/08/2024 8:58 AM [facility] BUN 35(H) 5 - 25 mg/dL LAB CHEMISTRY METHOD 03/08/2024 8:58 AM [facility] Creatinine 3.99(H) 0.50 - 1.10 mg/dL LAB CHEMISTRY METHOD 03/08/2024 8:58 AM [facility] eGFR 12(L) >=60 mL/min/1. 73m2 LAB CHEMISTRY METHOD 03/08/2024 8:58 AM [facility] Comment:Calculation based on the??Chronic Kidney Disease Epidemiology Collaboration (CKD-EPI) equation refit??without adjustment for race. BUN/Creatinine Ratio 8.8 LAB CHEMISTRY METHOD 03/08/2024 8:58 AM EST [facility] Albumin 2.3(L) 3.2 - 5.0 g/dL LAB CHEMISTRY METHOD 03/08/2024 8:58 AM [facility] Calcium 9.0 8.5 - 10.5 mg/dL LAB CHEMISTRY METHOD 03/08/2024 8:58 AM [facility] Phosphorus 3.2 2.5 - 4.5 mg/dL LAB CHEMISTRY METHOD 03/08/2024 8:58 AM [facility] Blood Venous blood specimen / Unknown Venipuncture / Unknown 03/08/2024 6:29 AM EST 03/08/2024 7:46 AM EST us Catalina Burr MD LAB BLOOD ORDERABLES Final Resul t [facility] [address] [place] [address], [place] [phone] * (ABNORMAL) Complete blood count (03/08/2024 6:29 AM EST) WBC 9.8 4.8 - 10.8 K/mcL LAB HEMETOLOGY METHOD 03/08/2024 8:10 AM [facility] RBC 2.90(L) 3.80 - 4.80 M/mcL LAB HEMETOLOGY METHOD 03/08/2024 8:10 AM [facility] Hemoglobin 7.9(L) 11.5 - 16.0 g/dL LAB HEMETOLOGY METHOD 03/08/2024 8:10 AM [facility] Hematocrit 28.5(L) 35.0 - 47.0 % LAB HEMETOLOGY METHOD 03/08/2024 8:10 AM [facility] MCV 99.3(H) 79.0 - 98.0 FL LAB HEMETOLOGY METHOD 03/08/2024 8:10 AM EST [facility] MCH 27.5 27.0 - 32.0 pcg LAB HEMETOLOGY METHOD 03/08/2024 8:10 AM EST [facility] MCHC 27.7(L) 32.0 - 37.0 g/dL LAB HEMETOLOGY METHOD 03/08/2024 8:10 AM EST [facility] RDW 17.2(H) 11.0 - 15.0 % LAB HEMETOLOGY METHOD 03/08/2024 8:10 AM EST [facility] Platelets 299 130 - 400 K/mcL LAB HEMETOLOGY METHOD 03/08/2024 8:10 AM EST [facility] MPV 11.5(H) 7.0 - 11.0 FL LAB HEMETOLOGY METHOD 03/08/2024 8:10 AM EST [facility] NRBC 0.0 <1.0 % LAB HEMETOLOGY METHOD 03/08/2024 8:10 AM EST [facility] NRBC Absolute 0.00 <0.10 K/mcL LAB HEMETOLOGY METHOD 03/08/2024 8:10 AM [facility] Blood Venous blood specimen / Unknown Venipuncture / Unknown 03/08/2024 6:29 AM EST 03/08/2024 7:46 AM EST us Catalina Burr MD LAB BLOOD ORDERABLES Final Resul t [facility] [address] [place] [address], [place] [phone] documented in this encounter Visit Diagnoses Diagnosis Chronic embolism and thrombosis of unspecified vein Acute kidney failure, unspecified (CMS/HCC) Acute kidney failure, unspecified Type 2 diabetes mellitus without complications documented in this encounter Care Teams Percolator Operator Relationship Specialty Start Date End Date Marita Wetzel DO [address] [place] [address] PCP - General 01/09/23 documented as of this encounter
--- OUTSIDE RECORDS SUMMARY | 2024-07-28 11:53 | XMS_ITS | Encounter Summary ---
Author Organization [facility] Address [address] [place] [address] Care Team Providers Care Aircraft Quality Control Inspector Name Role Phone Marita Wetzel Primary Care Provider +1- [phone] Encounter Details Date Type Department Care Team (Late st Contact Info) Description 03/12/2024 Lab Requisition [facility] - Main Lab [address] [facility] [place] [address] Catalina Burr MD [address] [place] [address] Chronic embolism and thrombosis of unspecified vein; [...] - 20.0 ng/mL 03/17/2024 1:34 PM EST [facility] Comment: Additional Information: Toxic Level [...] developed and the performance characteristics determined by [facility]. This confirmation testing has not been cleared or approved by the FDA. The laboratory is regulated under CLIA as qualified to perform high-complexity testing. This test is used for patient testing purposes. It should not be regarded as investigational or for research. Test performed at [facility], [facility] [address] [facility] [place] [facility] ? [phone] Ashtyn Leigh MD, PhD - Electric Repair Supervisor Blood Venous blood specimen / Unknown Venipuncture / Unknown 03/15/2024 8:20 AM EST 03/15/2024 10:20 AM EST us Catalina Burr MD LAB BLOOD ORDERABLES Final Resul t [place] [address] * (ABNORMAL) Renal function panel (03/15/2024 8:20 AM EST) Sodium 139 133 - 145 mmol/L LAB CHEMISTRY METHOD 03/15/2024 11:31 AM [facility] Potassium 5.6(H) 3.5 - 5.5 mmol/L LAB CHEMISTRY METHOD 03/15/2024 11:31 AM [facility] Chloride 108 96 - 110 mmol/L LAB CHEMISTRY METHOD 03/15/2024 11:31 AM [facility] CO2 19(L) 21 - 32 mmol/L LAB CHEMISTRY METHOD 03/15/2024 11:31 AM [facility] Anion Gap 12(H) 3 - 11 LAB CHEMISTRY METHOD 03/15/2024 11:31 AM [facility] Glucose 105(H) 70 - 100 mg/dL LAB CHEMISTRY METHOD 03/15/2024 11:31 AM [facility] BUN 36(H) 5 - 25 mg/dL LAB CHEMISTRY METHOD 03/15/2024 11:31 AM [facility] Creatinine 3.97(H) 0.50 - 1.10 mg/dL LAB CHEMISTRY METHOD 03/15/2024 11:31 AM [facility] eGFR 12(L) >=60 mL/min/1. 73m2 LAB CHEMISTRY METHOD 03/15/2024 11:31 AM [facility] Comment:Calculation based on the??Chronic Kidney Disease Epidemiology Collaboration (CKD-EPI) equation refit??without adjustment for race. BUN/Creatinine Ratio 9.1 LAB CHEMISTRY METHOD 03/15/2024 11:31 AM [facility] Albumin 2.6(L) 3.2 - 5.0 g/dL LAB CHEMISTRY METHOD 03/15/2024 11:31 AM EST [facility] Calcium 9.5 8.5 - 10.5 mg/dL LAB CHEMISTRY METHOD 03/15/2024 11:31 AM EST [facility] Phosphorus 4.0 2.5 - 4.5 mg/dL LAB CHEMISTRY METHOD 03/15/2024 11:31 AM EST [facility] Blood Venous blood specimen / Unknown Venipuncture / Unknown 03/15/2024 8:20 AM EST 03/15/2024 10:16 AM EST us Catalina Burr MD LAB BLOOD ORDERABLES Final Resul t [facility] [address] [place] [address], documented in this encounter Visit Diagnoses Diagnosis Chronic embolism and thrombosis of unspecified vein Acute kidney failure, unspecified (CMS/HCC) Acute kidney failure, unspecified Type 2 diabetes mellitus without complications documented in this encounter Care Teams Aircraft Quality Control Inspector Relationship Specialty Start Date End Date Marita Wetzel DO [address] [place] [address] PCP - General 01/09/23 documented as of this encounter
--- OUTSIDE RECORDS SUMMARY | 2024-07-28 11:53 | XMS_ITS | Clinical Summary ---
Author Organization [address] Address [address] [place] [address] Phone Care Team Providers Care Camp Cook Name Role Phone Marita Wetzel Primary Care Provider +1- [phone] Encounters Date Type Department Care Team Description 05/31/2024 Lab Requisition [facility] [address] [place] [phone] Marily Gordillo MD Acute kidney failure, unspecified (CMS/HCC); Chronic embolism and thrombosis of unspecified vein; Anemia, unspecified 05/30/2024 Lab Requisition [facility] [address] [place] [phone] Mariyl Gordillo MD Chronic embolism and thrombosis of unspecified vein; Acute kidney failure, unspecified (CMS/HCC) 05/21/2024 Lab Requisition [facility] [address] [place] [phone] Marily Gordillo MD Chronic embolism and thrombosis of unspecified vein; Acute kidney failure, unspecified (CMS/HCC) 05/15/2024 Lab Requisition [facility] [address] [place] [phone] Marily Gordillo MD Chronic embolism and thrombosis of unspecified vein; Acute kidney failure, unspecified (CMS/HCC) 05/12/2024 Lab Requisition [facility] [address] [place] [phone] Marily Gordillo MD Chronic kidney disease, unspecified; Anemia, unspecified 05/07/2024 Lab Requisition [facility] [address] [place] [phone] Marily Gordillo MD Chronic embolism and thrombosis of unspecified vein; Acute kidney failure, unspecified (CMS/HCC) 2024 Lab Requisition [facility] [address] [place] [phone] Marily Gordillo MD Chronic kidney disease, unspecified; Anemia, unspecified 04/30/2024 Lab Requisition [facility] [address] [place] [phone] Marily Gordillo MD Chronic embolism and thrombosis of unspecified vein; Acute kidney failure, unspecified (CMS/HCC) 04/30/2024 Lab Requisition [facility] [address] [place] [phone] Marily Gordillo MD Anemia, unspecified; Chronic embolism and thrombosis of unspecified vein; Acute kidney failure, unspecified (CMS/HCC) 04/29/2024 Lab Requisition [facility] [address] [place] [phone] Marily Gordillo MD Chronic embolism and thrombosis [...] the performance characteristics determined by [facility]. This confirmation testing has not been cleared or approved by the FDA. The laboratory is regulated under CLIA as qualified to perform high-complexity testing. This test is used for patient testing purposes. It should not be regarded as investigational or for research. Test performed at [facility], [address], [place], [place] ??[address] ? [phone] Ashtyn Leigh MD, PhD - Juice Mixer Blood Venous blood specimen / Unknown Venipuncture / Unknown 05/10/2024 5:50 AM EST 05/10/2024 9:58 AM EST us Marily Gordillo MD LAB BLOOD ORDERABLES Final [place]ul [place] [address] [place] [address] * (ABNORMAL) Renal function panel (05/10/2024 5:50 AM EST) Only the most recent of2 resultswithin the time period is included. Sodium 135 133 - 145 mmol/L LAB CHEMISTRY METHOD 05/10/2024 11:45 AM [facility] Potassium 3.8 3.5 - 5.5 mmol/L LAB CHEMISTRY METHOD 05/10/2024 11:45 AM [facility] Chloride 96 96 - 110 mmol/L LAB CHEMISTRY METHOD 05/10/2024 11:45 AM [facility] CO2 28 21 - 32 mmol/L LAB CHEMISTRY METHOD 05/10/2024 11:45 AM [facility] Anion Gap 11 3 - 11 LAB CHEMISTRY METHOD 05/10/2024 11:45 AM [facility] Glucose 215(H) 70 - 100 mg/dL LAB CHEMISTRY METHOD 05/10/2024 11:45 AM [facility] BUN 45(H) 5 - 25 mg/dL LAB CHEMISTRY METHOD 05/10/2024 11:45 AM [facility] Creatinine 3.47(H) 0.50 - 1.10 mg/dL LAB CHEMISTRY METHOD 05/10/2024 11:45 AM [facility] eGFR 14(L) >=60 mL/min/1. 73m2 LAB CHEMISTRY METHOD 05/10/2024 11:45 AM [facility] Comment:Calculation based on the??Chronic Kidney Disease Epidemiology Collaboration (CKD-EPI) equation refit??without adjustment for race. BUN/Creatinine Ratio 13.0 LAB CHEMISTRY METHOD 05/10/2024 11:45 AM [facility] Albumin 1.7(L) 3.2 - 5.0 g/dL LAB CHEMISTRY METHOD 05/10/2024 11:45 AM EST [facility] Calcium 8.4(L) 8.5 - 10.5 mg/dL LAB CHEMISTRY METHOD 05/10/2024 11:45 AM EST [facility] Phosphorus 2.1(L) 2.5 - 4.5 mg/dL LAB CHEMISTRY METHOD 05/10/2024 11:45 AM EST [facility] Blood Venous blood specimen / Unknown Venipuncture / Unknown 05/10/2024 5:50 AM EST 05/10/2024 9:58 AM EST us Marily Gordillo MD LAB BLOOD ORDERABLES Final Resul t Performing Organization Address City/[facility]/ZIP Co de Phone Number [facility] [address] [place] [address], [place] [phone] * (ABNORMAL) Iron (05/03/2024 6:09 AM EST) Iron 35(L) 40 - 150 mcg/dL LAB CHEMISTRY METHOD 05/03/2024 10:59 AM EST [facility] Blood Venous blood specimen / Unknown Venipuncture / Unknown 05/03/2024 6:09 AM EST 05/03/2024 9:29 AM EST us Marily Gordillo MD LAB BLOOD ORDERABLES Final Resul t [facility] [address] [place] [address], [place] [phone] * (ABNORMAL) Ferritin (05/03/2024 6:09 AM EST) Ferritin 2,737(H) 8 - 252 ng/mL LAB CHEMISTRY METHOD 05/03/2024 10:59 AM EST [facility] Blood Venous blood specimen / Unknown Venipuncture / Unknown 05/03/2024 6:09 AM EST 05/03/2024 9:29 AM EST us Marily Gordillo MD LAB BLOOD ORDERABLES Final Resul t [facility] [place] [facility] [address] [place] [address], [place] [phone] from Last 3 Months Insurance MEDICARE Care Teams Camp Cook Relationship Specialty Start Date End Date Marita Wetzel DO [address] [place], [place] PCP - General 01/09/23
--- OUTSIDE RECORDS SUMMARY | 2024-07-28 11:53 | XMS_ITS | Encounter Summary ---
Author Organization [facility] Address [address] [place] [address] Phone Care Team Providers Care Dental Nurse Name Role Phone Marita Wetzel DO Primary Care Provider Unava ilable Encounter Details Date Type Department Care Team (Late st Contact Info) Description 06/23/2023 Documentation Only [facility] [address] [place] [phone] [place] [address] [place] [phone] Social History Tobacco Use Types Packs/Day Years [...] [facility] - [facility] Center [address] [place] [phone] documented as of this encounter Visit Diagnoses Not on filedocumented in this encounter Care Teams Dental Nurse Relationship Specialty Start Date End Date Marita Wetzel DO [address] [place] [address] PCP - General Family Medicine 11/14/22 documented as of this encounter
--- NOTE | 2024-07-28 13:42 | A.OFFVIS_ITS ---
Vital Signs 07/28/24 13:52 Height 5 ft 6 in Weight 131 lb BMI 21.1 Pulse 65 Pulse Source Pulse Oximeter Pulse Oximetry (%) 100 Oxygen Delivery Method Room Air Intake Visit Reasons: 3 wks follow up Allergies codeine [CODEINE] Allergy (Intermediate, Verified 07/28/24 13:53) Hives and pruritus oxycodone [OXYCODONE] Allergy (Intermediate, Verified 07/28/24 13:53) HIVES HPI HPI 3 wks follow up: Details: She feels well. Her vision has not changed and has right eye with chronic low vision. She has no dizziness. She has had anemia on Bactrim. She stopped her own IV Bactrim due to nausea on 07/26 and feels better. She also declines repeat MRI brain,she doesnt feel needs. 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 Mother CHF (congestive heart failure) Social History Household Members: Spouse Housing: House Do you presently have visiting nurse or other home services: Yes Alcohol intake: never Comment: patient is bedbound at this time Patient Tobacco Use Status: Never used Tobacco Advance Directives Date on File: 04/07/24 service: Yes Review of Systems Const All systems reviewed & are unremarkable except as noted in HPI and below Physical Exam Vital Signs: Last Vital Signs Pulse 65 07/28/24 13:52 Pulse Ox 100 07/28/24 13:52 Oxygen Delivery Method Room Air 07/28/24 13:52 BMI result Body Mass Index 21.1 Const General: cooperative Orientation/consciousness: patient oriented x3 HEENT Head: Yes normal to inspection Mouth: Normal oral and palatal mucosa present Eyes Other: chronic cloudiness right eye General: appearance normal, both eyes and all related structures Pupils: Equal, round and reactive pupils present Resp Effort & Inspection: normal respiratory effort Cardio Rate: regular rate Rhythm: regular rhythm GI Palpation (GI): Soft to palpation and nontender General: Yes no CVA tenderness Back/Spine/Pelvis Back: no CVA tenderness Skin General skin exam: no rashes or lesions noted Neuro General: patient oriented x3 Cranial nerves: Yes CN's II-XII intact bilaterally and Yes Equal, round and reactive pupils present Extrem General: Yes normal to inspection Psych Appearance: grossly normal Assessment & Plan Assessment & Plan (1) Disseminated nocardiosis: Comment: Doing well Code(s): A43.9 - Nocardiosis, unspecified Category: Medical Plan: Off IV Bactrim,declines any further,finished six weeks for disseminated nocardia nova Plan Would remove line per patient at Radiology. Start linezolid 600 mg bid,patient declines further Bactrim. Recheck CXR. See in one month Orders: Orders IR cvc remove any age Today A43.9 - Nocardiosis, unspecified XR chest 2V Today A43.9 - Nocardiosis, unspecified Medications: New linezolid 600 mg PO BID 30 days 60 tabs 1RF Coding Level of Care Code Est Pt Level 3 (47231) Diagnoses Disseminated nocardiosis A43.9
[2024-07-28 13:52] VITALS: PULSE 65; O2SAT 100; BMI 21.1
--- OUTSIDE RECORDS SUMMARY | 2024-07-28 15:52 | XMS_ITS | Encounter Summary ---
Author Organization [facility] Address [address] [place] [address] Phone Care Team Providers Care Housing Management Representative Name Role Phone Marita Wetzel DO Primary Care Provider Unava ilable Encounter Details Date Type Department Care Team (Late st Contact Info) Description 04/18/2023 Documentation Only [facility] [address] [place] [phone] Jerod Adames DO [address] [place] [phone] Social History Tobacco Use Types Packs/Day Years [...] [facility] [address] [place] [phone] documented as of this encounter Visit Diagnoses Not on filedocumented in this encounter Care Teams Housing Management Representative Relationship Specialty Start Date End Date Marita Wetzel DO [address] [place] [address] PCP - General Family Medicine 11/14/22 documented as of this encounter
--- OUTSIDE RECORDS SUMMARY | 2024-07-28 15:53 | XMS_ITS | Encounter Summary ---
Author Organization [facility] Address [address] [place] [address] Phone Care Team Providers Care Cdl Instructor Name Role Phone Marita Wetzel DO Primary Care Provider Unava ilable Encounter Details Date Type Department Care Team (Late st Contact Info) Description 12/31/2022 Documentation Only [facility] [address] [place] [phone] Candace Adam PA Social History Tobacco Use [...] Only [facility] [place] Vascular Access Center [address] [place] [phone] documented as of this encounter Visit Diagnoses Not on filedocumented in this encounter Care Teams Cdl Instructor Relationship Specialty Start Date End Date Marita Wetzel DO [address] [place] [address] PCP - General Family Medicine 11/14/22 documented as of this encounter
--- OUTSIDE RECORDS SUMMARY | 2024-07-28 15:53 | XMS_ITS | Encounter Summary ---
Author Organization [facility] Address [address] [place] [address] Phone Care Team Providers Care Authors Motivational Name Role Phone Fouzia Wetzelfer Primary Care Provider Unava ilable Encounter Details Date Type Department Care Team (Late st Contact Info) Description 05/01/2023 Documentation Only [facility] [address] [place] [phone] [place] [address] [place] [phone] Social History Tobacco Use Types Packs/Day Years [...] [facility] V[facility] Center [address] [place] [phone] Scheduled Orders Name Type Priority Associated Diagnoses [...] Primary documented in this encounter Care Teams Authors Motivational Relationship Specialty Start Date End Date Marita Wetzel DO [address] [place] [address] PCP - General Family Medicine 11/14/22 documented as of this encounter
--- OUTSIDE RECORDS SUMMARY | 2024-07-28 15:53 | XMS_ITS | Encounter Summary ---
Author Organization [facility] Address [address] [place] [address] Phone Care Team Providers Care Bricklayer Name Role Phone Marita Wetzel DO Primary Care Provider Unava ilable Encounter Details Date Type Department Care Team (Late Contact Info) Description 10/06/2023 Documentation Only [facility] [address] [place] [phone] [place] [address] [place] [phone] Social History Tobacco Use Types Packs/Day Years [...] Only [facility] V[facility] Center [address] [place] [phone] documented as of this encounter Visit Diagnoses Not on filedocumented in this encounter Care Teams Bricklayer Relationship Specialty Start Date End Date Marita Wetzel DO [address] [place] [address] PCP - General Family Medicine 11/14/22 documented as of this encounter
--- OUTSIDE RECORDS SUMMARY | 2024-07-28 15:53 | XMS_ITS | Encounter Summary ---
Author Organization [facility], Address [address] [place] [phone] Phone Care Team Providers Care Correctional Officer Sergeant Name Role Phone Marita Wetzel DO Primary Care Provider Unava ilable Reason for Visit * Reason Comments Med Refill Encounter Details Date Type Department Care Team (Late Contact Info) Description 06/30/2024 Refill [facility] [address] [place] [phone] Srinivas Agrawal MD [address] [place] [address] [place] [address] Social History Tobacco Use Types [...] Only [facility], - [facility] Center [address] [place] [address] [place] [address] documented as of this encounter Procedures Procedure Name Priority Date/Time Associated Diagnosis Comments HEMATOLOGY Routine 06/30/2024 documented in this encounter Results * (ABNORMAL) HEMATOLOGY (06/30/2024) Hemoglobin 6.3(L) 12.0 - 16.0 g/dL [facility] Hemoglobin x 3 18.9(L) 36.0 - 48.0 % [facility] 06/30/2024 07/01/2024 10: 49 AM EDT Narrative [facility] - 07/01/2024 Unless otherwise specified, test(s) performed at: [facility], [address] [place] [id number] DIRECTOR OF CASEWORK: Dwayne Fuentes M.D. For any questions, please call customer service at FREQUENCY:OTHER Resulting Agency Comment Specimen source: Blood Srinivas Agrawal MD LAB BLOOD ORDERABLES Final Result [facility] See order comments or contact performing lab Unknown, [place] documented in this encounter Visit Diagnoses Not on filedocumented in this encounter Care Teams Correctional Officer Sergeant Relationship Specialty Start Date End Date Marita Wetzel DO [address] [place] [address] PCP - General Family Medicine 11/14/22 documented as of this encounter
--- OUTSIDE RECORDS SUMMARY | 2024-07-28 15:53 | XMS_ITS | Encounter Summary ---
Author Organization [facility] Address [address] [place] [address] Phone Care Team Providers Care Melter Supervisor Open Hearth Furnace Name Role Phone Marita Wetzel DO Primary Care Provider Unava ilable Encounter Details Date Type Department Care Team (Late Contact Info) Description 08/27/2023 Documentation Only [facility] [address] [phone] [place] [address] [place] [phone] Social History Tobacco Use Types Packs/Day Years [...] Only [facility] V[facility] Center [address] [place] [phone] documented as of this encounter Visit Diagnoses Not on filedocumented in this encounter Care Teams Melter Supervisor Open Hearth Furnace Relationship Specialty Start Date End Date Marita Wetzel DO [address] [place] [address] PCP - General Family Medicine 11/14/22 documented as of this encounter
--- OUTSIDE RECORDS SUMMARY | 2024-07-28 15:53 | XMS_ITS | Encounter Summary ---
Author Organization [facility], Address [address] [place] [address] Phone Care Team Providers Care Turpentine Farmer Name Role Phone Marita Wetzel DO Primary Care Provider Unava ilable Reason for Visit * Reason Comments Med Refill Encounter Details Date Type Department Care Team (Late Contact Info) Description 12/06/2020 Refill [facility] [address] [place] [phone] Bernardo Doty MD [address] [place] [address] [place] [address] Social History Tobacco Use Types [...] Only [facility] - V[facility] Center [address] [place] [address] [place] [address] documented as of this encounter Visit Diagnoses Not on filedocumented in this encounter Care Teams Turpentine Farmer Relationship Specialty Start Date End Date Marita Wetzel DO [address] [place] [address] PCP - General Family Medicine 7/27/23 documented as of this encounter
--- OUTSIDE RECORDS SUMMARY | 2024-07-28 15:53 | XMS_ITS | Encounter Summary ---
Author Organization [facility] Address [address] [place] [address] Care Team Providers Care Junior Administrative Assistant Name Role Phone Marita Wetzel DO Primary Care Provider +1- [phone] Encounter Details Date Type Department Care Team (Late st Contact Info) Description 05/12/2024 Lab Requisition [facility] - Main Lab [address] [facility] [place] [phone] Marily Gordillo MD [address] [place] [address] Chronic kidney disease, unspecified; Anemia, [...] unspecified documented in this encounter Care Teams Junior Administrative Assistant Relationship Specialty Start Date End Date Marita Wetzel DO [address] [place] [address] PCP - General 01/09/23 documented as of this encounter
--- OUTSIDE RECORDS SUMMARY | 2024-07-28 15:53 | XMS_ITS | Encounter Summary ---
Author Organization [facility] Address [address] [place] [address] Phone Care Team Providers Care Timber Sizer Name Role Phone Marita Wetzel DO Primary Care Provider Unava ilable Encounter Details Date Type Department Care Team (Late st Contact Info) Description 09/11/2023 Documentation Only [facility] [address] [address] [address] [place] [phone] Pauline Aguayo [address] [place] [phone] Social History Tobacco Use Types Packs/Day Years [...] Only [facility] Vascular Access Center [address] [facility] [place] [phone] documented as of this encounter Visit Diagnoses Not on filedocumented in this encounter Care Teams Timber Sizer Relationship Specialty Start Date End Date Marita Wetzel DO [address] [place] [address] PCP - General Family Medicine 11/14/22 documented as of this encounter
--- OUTSIDE RECORDS SUMMARY | 2024-07-28 15:53 | XMS_ITS | Encounter Summary ---
Author Organization [facility], Address [address] [place] [address] Phone Care Team Providers Care Mat Packer Name Role Phone Marita Wetzel DO Primary Care Provider Unava ilable Encounter Details Date Type Department Care Team (Late st Contact Info) Description 04/02/2023 Documentation Only [facility] Dr Eufemia CONTRERAS [address] [place] [phone] Bernardo Doty MD [address] [place] [address] [place] [address] Social History Tobacco Use Types [...] Only [facility] Vascular Access Center [address] [place] [address] [place] [address] documented as of this encounter Visit Diagnoses Not on filedocumented in this encounter Care Teams Mat Packer Relationship Specialty Start Date End Date Marita Wetzel DO [address] [place] [address] PCP - General Family Medicine 7/27/23 documented as of this encounter
--- OUTSIDE RECORDS SUMMARY | 2024-07-28 15:53 | XMS_ITS | Encounter Summary ---
Author Organization [facility] Address [address] [place] [address] Care Team Providers Care Ham Clerk Name Role Phone Marita Wetzel DO Primary Care Provider +1- [phone] Encounter Details Date Type Department Care Team (Late st Contact Info) Description 05/21/2024 Lab Requisition [facility] - Main Lab [address] [facility] [place] [phone] Marily Gordillo MD [address] [place] [phone] Chronic embolism and thrombosis of unspecified vein; [...] unspecified documented in this encounter Care Teams Ham Clerk Relationship Specialty Start Date End Date Marita Wetzel DO [address] [place], [place] PCP - General 01/09/23 documented as of this encounter
--- OUTSIDE RECORDS SUMMARY | 2024-07-28 15:53 | XMS_ITS | Encounter Summary ---
Author Organization [employer] Address [address] [facility] 7t [place] [address] Care Team Providers Care Cement Cutter Name Role Phone Marita Wetzel DO Primary Care Provider +1- [phone] Carmen Becker PharmD Unavailable [phone] Encounter Details Date Type Department Care Team (Late st Contact Info) Description 04/29/2023 Telephone [facility] [address] [place] [address] Marita Wetzel DO [address] [place] [address] Social History Tobacco Use Types Packs/Day Years [...] Description 08/20/2024 10:00 AM EDT Office Visit [facility] [address] [place] [address] Marita Wetzel DO [address] [place] [address] documented as of this encounter Visit Diagnoses Not on filedocumented in this encounter Additional Health Concerns Assessment Noted Time PHQ-9 Depression Total Score: 0 10/09/19 23 9:31 AM EDT documented as of this encounter Care Teams Cement Cutter Relationship Specialty Start Date End Date Marita Wetzel DO [address] [place] [address] PCP - General Family Medicine 04/21/18 Carmen Becker PharmD [address] [place] [address] Pharmacist Internal Medicine 07/21/23 01/21/24 [facility] 05/22/24 documented as of this encounter
--- OUTSIDE RECORDS SUMMARY | 2024-07-28 15:53 | XMS_ITS | Encounter Summary ---
Author Organization [facility] Address [address] [place] [address] Phone Care Team Providers Care Prosthetics Technician Name Role Phone Marita Wetzel DO Primary Care Provider Unava ilable Encounter Details Date Type Department Care Team (Late st Contact Info) Description 12/09/2022 Documentation Only [facility] [address] [place] [place] [phone] Candace Adam PA Social History Tobacco Use [...] [facility] [place] Vascular Access Center [address] [place] [phone] documented as of this encounter Visit Diagnoses Not on filedocumented in this encounter Care Teams Prosthetics Technician Relationship Specialty Start Date End Date Marita Wetzel DO [address] [place] [address] PCP - General Family Medicine 11/14/22 documented as of this encounter
--- OUTSIDE RECORDS SUMMARY | 2024-07-28 15:53 | XMS_ITS | Encounter Summary ---
Author Organization [facility] Address [address] [place] [address] Phone Care Team Providers Care Quality Control Lead Name Role Phone Marita Wetzel DO Primary Care Provider Unava ilable Encounter Details Date Type Department Care Team (Late Contact Info) Description 09/12/2023 Documentation Only [facility] [address] [facility] [place] [phone] [place] [address] [place] [phone] Social History Tobacco Use Types Packs/Day Years [...] [facility] Vascular Access Center [address] [facility] [place] [phone] documented as of this encounter Visit Diagnoses Not on filedocumented in this encounter Care Teams Quality Control Lead Relationship Specialty Start Date End Date Marita Wetzel DO [address] [place] [address] PCP - General Family Medicine 11/14/22 documented as of this encounter
--- OUTSIDE RECORDS SUMMARY | 2024-07-28 15:53 | XMS_ITS | Encounter Summary ---
Author Organization [facility] Address [address] [place] [address] Phone Care Team Providers Care Baseball Glove Shaper Name Role Phone Marita Wetzel DO Primary Care Provider Unava ilable Encounter Details Date Type Department Care Team (Late st Contact Info) Description 01/21/2024 Documentation Only [facility] [address] [place] [phone] Pauline Aguayo [address] [place] [phone] Social History Tobacco Use Types Packs/Day Years [...] [facility] Vascular Access Center [address] [place] [phone] documented as of this encounter Visit Diagnoses Not on filedocumented in this encounter Care Teams Baseball Glove Shaper Relationship Specialty Start Date End Date Marita Wetzel DO [address] [place] [address] PCP - General Family Medicine 11/14/22 documented as of this encounter
--- OUTSIDE RECORDS SUMMARY | 2024-07-28 15:53 | XMS_ITS | Encounter Summary ---
Author Organization [facility] Address [address] [place] [phone] Phone Care Team Providers Care Top Frame Fitter Name Role Phone Marita Wetzel DO Primary Care Provider Unava ilable Encounter Details Date Type Department Care Team (Late st Contact Info) Description 03/18/2023 Documentation Only [facility] [address] [place] [phone] Srinivas Agrawal MD [address] [place] [address] [place] [address] Social History Tobacco Use Types [...] [facility] - Vascular Access Center [address] [place] [address] [place] [phone] documented as of this encounter Visit Diagnoses Not on filedocumented in this encounter Care Teams Top Frame Fitter Relationship Specialty Start Date End Date Marita Wetzel DO [address] [place] [address] PCP - General Family Medicine 11/14/22 documented as of this encounter
--- OUTSIDE RECORDS SUMMARY | 2024-07-28 15:53 | XMS_ITS | Encounter Summary ---
Author Organization [facility] Address [address] [place] [address] Phone Care Team Providers Care Family Practice Md Name Role Phone Marita Wetzel DO Primary Care Provider Unava ilable Encounter Details Date Type Department Care Team (Late st Contact Info) Description 06/25/2022 Documentation Only [facility] [address] [facility] [place] [phone] Pauline Aguayo [address] [place] [phone] Social History Tobacco Use Types Packs/Day Years [...] [facility] Vascular Access Center [address] [facility] [place] [phone] documented as of this encounter Visit Diagnoses Not on filedocumented in this encounter Care Teams Family Practice Md Relationship Specialty Start Date End Date Marita Wetzel DO [address] [place] [address] PCP - General Family Medicine 11/14/22 documented as of this encounter
--- OUTSIDE RECORDS SUMMARY | 2024-07-28 15:53 | XMS_ITS | Encounter Summary ---
Author Organization [facility] Address [address] [place] [address] Phone Care Team Providers Care Sustainability Communicator Name Role Phone Marita Wetzel DO Primary Care Provider Unava ilable Encounter Details Date Type Department Care Team (Late Contact Info) Description 08/28/2023 Documentation Only [facility] [address] [place] [phone] [place] [address] [place] [phone] Social History Tobacco Use Types Packs/Day Years [...] [facility] Vascular Access Center [address] [place] [phone] documented as of this encounter Visit Diagnoses Not on filedocumented in this encounter Care Teams Sustainability Communicator Relationship Specialty Start Date End Date Marita Wetzel DO [address] [place] [address] PCP - General Family Medicine 11/14/22 documented as of this encounter
--- OUTSIDE RECORDS SUMMARY | 2024-07-28 15:53 | XMS_ITS | Encounter Summary ---
Author Organization [facility] Address [address] [place] [address] Phone Care Team Providers Care Viticulture Teacher Name Role Phone Marita Wetzel DO Primary Care Provider Unava ilable Encounter Details Date Type Department Care Team (Late st Contact Info) Description 06/14/2022 Documentation Only [facility] [address] [place] [phone] Candace Adam PA Social History Tobacco Use [...] Only [facility] [place], [facility] Vascular Access Center [address] [place] [phone] documented as of this encounter Visit Diagnoses Not on filedocumented in this encounter Care Teams Viticulture Teacher Relationship Specialty Start Date End Date Marita Wetzel DO [address] [place] [address] PCP - General Family Medicine 11/14/22 documented as of this encounter
--- OUTSIDE RECORDS SUMMARY | 2024-07-28 15:53 | XMS_ITS | Encounter Summary ---
Author Organization [facility] Address [address] [place] [address] Phone Care Team Providers Care Sugar Presser Name Role Phone Marita Wetzel DO Primary Care Provider Unava ilable Encounter Details Date Type Department Care Team (Late Contact Info) Description 08/11/2023 Documentation Only [facility] [address] [facility] [place] [phone] [place] [address] [place] [phone] Social History Tobacco Use Types Packs/Day Years [...] [facility] Vascular Access Center [address] [facility] [place] [phone] documented as of this encounter Visit Diagnoses Not on filedocumented in this encounter Care Teams Sugar Presser Relationship Specialty Start Date End Date Marita Wetzel DO [address] [place] [address] PCP - General Family Medicine 11/14/22 documented as of this encounter
--- OUTSIDE RECORDS SUMMARY | 2024-07-28 15:53 | XMS_ITS | Encounter Summary ---
Author Organization [facility] Address [address] [place] [address] Phone Care Team Providers Care Mechanical Fitter Name Role Phone Marita Wetzel DO Primary Care Provider Unava ilable Encounter Details Date Type Department Care Team (Late Contact Info) Description 10/24/2023 Documentation Only [facility] [address] [facility] [place] [phone] [place] [address] [place] [phone] Social History Tobacco Use Types Packs/Day Years [...] [facility] Vascular Access Center [address] [facility] [place] [phone] documented as of this encounter Visit Diagnoses Not on filedocumented in this encounter Care Teams Mechanical Fitter Relationship Specialty Start Date End Date Marita Wetzel DO [address] [place] [address] PCP - General Family Medicine 11/14/22 documented as of this encounter
--- OUTSIDE RECORDS SUMMARY | 2024-07-28 15:53 | XMS_ITS | Encounter Summary ---
Author Organization [employer] Address [address] [place] [address] 7 [place] [address] Care Team Providers Care Header Set Up Operator Name Role Phone Marita Wetzel DO Primary Care Provider +[phone] Carmen Becker PharmD Unavailable [phone] Reason for Visit * Reason Onset Date Comments Prior Authorization 04/25/2023 [employer] Encounter Details Date Type Department Care Team (Late st Contact Info) Description 04/25/2023 Telephone [facility] [address] [place] [address] Marita Wetzel DO [address] [place] [address] Prior Authorization ([employer]) Social History Tobacco [...] Description 08/20/2024 10:00 AM EDT Office Visit [facility] [address] [place] [address] Marita Wetzel DO [address] [place], [place] [phone] documented as of this encounter Visit Diagnoses Not on filedocumented in this encounter Additional Health Concerns Assessment Noted Time PHQ-9 Depression Total Score: 0 10/09/19 23 9:31 AM EDT documented as of this encounter Care Teams Header Set Up Operator Relationship Specialty Start Date End Date Marita Wetzel DO [address] [place] [address] PCP - General Family Medicine 04/21/18 Carmen Becker PharmD [address] [place] [address] Pharmacist Internal Medicine 07/21/23 01/21/24 [facility] 05/22/24 documented as of this encounter
--- OUTSIDE RECORDS SUMMARY | 2024-07-28 15:53 | XMS_ITS | Encounter Summary ---
Author Organization [employer] Address [address] [place] [address] 7 [place] [address] Care Team Providers Care Shift Commander Name Role Phone Marita Wetzel DO Primary Care Provider [phone]- [phone] Carmen Becker PharmD Unavailable [phone] Encounter Details Date Type Department Care Team (Late st Contact Info) Description 12/11/2022 Orders Only [facility] [address] [place] [address] Heather Nesbitt, SONNY [address] [place] [address] Social History Tobacco Use Types Packs/Day Years [...] 08/20/2024 10:00 AM EDT Office Visit [facility] [address] [place] [address] Marita Wetzel DO [address] [place] [address] documented as of this encounter Visit Diagnoses Not on filedocumented in this encounter Additional Health Concerns Assessment Noted Time PHQ-9 Depression Total Score: 0 10/09/19 23 9:31 AM EDT documented as of this encounter Care Teams Shift Commander Relationship Specialty Start Date End Date Marita Wetzel DO [address] [place] [address] PCP - General Family Medicine 04/21/18 Carmen Becker PharmD [address] [place] [address] Pharmacist Internal Medicine 07/21/23 01/21/24 [facility] 05/22/24 documented as of this encounter
--- OUTSIDE RECORDS SUMMARY | 2024-07-28 15:53 | XMS_ITS | Encounter Summary ---
Author Organization [facility] Address [address] [place] [address] Care Team Providers Care Punch Molder Name Role Phone Marita Wetzel DO Primary Care Provider [phone]- [phone] Encounter Details Date Type Department Care Team (Late st Contact Info) Description 05/15/2024 Lab Requisition [facility] - Main Lab [address] [facility] [place] [phone] Marily Gordillo MD [address] [place] [phone] Chronic embolism and thrombosis of unspecified vein; [...] unspecified documented in this encounter Care Teams Punch Molder Relationship Specialty Start Date End Date Marita Wetzel DO [address] [place], [place] PCP - General 01/09/23 documented as of this encounter
--- OUTSIDE RECORDS SUMMARY | 2024-07-28 15:53 | XMS_ITS | Encounter Summary ---
Author Organization [facility] Address [address] [place] [phone] Phone Care Team Providers Care Refrigerating Oiler Name Role Phone Marita Wetzel DO Primary Care Provider Unava ilable Encounter Details Date Type Department Care Team (Late st Contact Info) Description 10/03/2023 Documentation Only [facility] [address] [place] [phone] Srinivas Agrawal MD [address] [place] [address] [place] [address] Social History Tobacco Use Types [...] [facility] - [facility] Access Center [address] [place] [address] [place] [phone] documented as of this encounter Visit Diagnoses Not on filedocumented in this encounter Care Teams Refrigerating Oiler Relationship Specialty Start Date End Date Marita Wetzel DO [address] [place] [address] PCP - General Family Medicine 11/14/22 documented as of this encounter
--- OUTSIDE RECORDS SUMMARY | 2024-07-28 15:53 | XMS_ITS | Clinical Summary ---
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 84977 mL 12 02/10/20 Active predniSONE 5 MG [...] Telephone [facility] [place] - [facility] Access Center [address] [place] [address] Hazel Zepeda Attempted to schedule port flush 07/26/2024 Treatment [facility] [place], [address] [place] [address] Bernardo Doty MD End stage renal disease; Dependence on renal dialysis 07/21/2024 Orders Only [facility] [place] [address] Srinivas Agrawal MD 07/21/2024 Treatment [facility] [address] [place] [address] Bernardo Doty MD End stage renal disease; Dependence on renal dialysis 07/19/2024 Orders Only [facility] [address] [address] Srinivas Agrawal MD 07/14/2024 Orders Only [facility] [address] [address] Srinivas Agrawal MD 07/12/2024 Orders Only [facility] [address] [address] Srinivas Agrawal MD 07/09/2024 Orders Only [facility] [address] [address] Srinivas Agrawal MD 07/07/2024 Orders Only [facility] [address] [address] Srinivas Agrawal MD 07/05/2024 Orders Only [facility] [address] [address] Srinivas Agrawal MD 07/05/2024 Treatment [facility] [address] [place] [address] Bernardo Doty MD End stage renal disease; Dependence on renal dialysis 06/30/2024 Refill [facility] [address] [address] Srinivas Agrawal MD 06/28/2024 Treatment [facility] [address] [place] [address] Bernardo Doty MD End stage renal disease; Dependence on renal dialysis 06/25/2024 Telephone [facility] [address] [place] [phone] Hazel Zepeda [facility] RN returned call 06/25/2024 Telephone [facility] Vascular Access Center [address] [place] [place] [phone] Hazel Zepeda Abx via port 06/23/2024 Treatment [facility] [place], [address] [place] [address] Bernardo Doty MD End stage renal disease; Dependence on renal dialysis 06/23/2024 Orders Only [facility] [address] [address] Srinivas Agrawal MD 06/21/2024 Treatment [facility] [address] [place] [address] Bernardo Doty MD End stage renal disease; Dependence on renal dialysis 06/18/2024 Refill [facility] [address] [address] Srinivas Agrawal MD 06/10/2024 Telephone [facility] Vascular Access Center [address] [place] [address] [place] [phone] Hazel Zepeda NS port flush- pt at [facility] 05/25/2024 Telephone [facility] [address] [place] [address] Hazel Zepeda attempted to schedule port flush 05/24/2024 Orders Only [facility] [address] [address] Srinivas Agrawal MD 05/24/2024 Treatment [facility] [place], [address] [place] [address] Bernardo Doty MD 05/10/2024 Orders Only [facility] [address] [place] [address] Srinivas Agrawal MD 05/10/2024 Treatment [facility] [address] [place] [address] Bernardo Doty MD 2024 Orders Only [facility] [address] [address] Srinivas Agrawal MD 05/03/2024 Treatment [facility] [address] [place] [address] Candace Adam PA 04/30/2024 Orders Only [facility] [address] [address] Srinivas Agrawal MD from Last 3 Months [...] Only [facility] Vascular Access Center [address] [place] [address] [place] [phone] Health Maintenance Due Date Last Done Comments [...] included. Hemoglobin 7.1(L) 12.0 - 16.0 g/dL [facility] Hemoglobin x 3 21.3(L) 36.0 - 48.0 % [facility] 07/21/2024 07/22/2024 10: 38 AM EDT Narrative [facility] - 07/22/2024 Unless otherwise specified, test(s) performed at: [facility], [address] [place] [address] E MARKETING SPECIALIST: Dwayne Fuentes M.D. For any questions, please call customer service at FREQUENCY:OTHER Resulting Agency Comment Specimen source: Blood Srinivas Agrawal MD LAB BLOOD ORDERABLES Final Result Performing Organization Address [facility] de Phone Number [facility] See order comments or contact performing lab Unknown, [place] * [facility] Chemistry (07/19/2024) Only the most recent of13 resultswithin the time period is included. Potassium 4.4 3.5 - 5.1 mEq/L [facility] 07/19/2024 07/22/2024 12: 20 PM EDT Narrative [facility] - 07/22/2024 Unless otherwise specified, test(s) performed at: [facility], [address] [place] [address] E MARKETING SPECIALIST: Dwayne Fuentes M.D. For any questions, please call customer service at FREQUENCY:OTHER Resulting Agency Comment Specimen source: Serum Srinivas Agrawal MD LAB BLOOD ORDERABLES Final Result Performing Organization Address [facility] de Phone Number [facility] See order comments or contact performing lab Unknown, [place] * HD KINETICS (07/09/2024) Only the most recent of3 resultswithin the time period is included. % Urea Reduction 70 65 - 80 % [facility] 07/09/2024 07/13/2024 9:0 9 AM EDT Narrative Resulting Agency Comment Specimen source: Plasma Srinivas Agrawal MD LAB BLOOD ORDERABLES Final Result Performing Organization Address [facility] de Phone Number [facility] See order comments or contact performing lab Unknown, [place] * POST CHEMISTRY (07/09/2024) Only the most recent of3 resultswithin the time period is included. BUN Post Dialysis 9 6 - 19 mg/dL [facility] 07/09/2024 07/13/2024 9:0 9 AM EDT Narrative [facility] - 07/13/2024 Unless otherwise specified, test(s) performed at: [facility], [address] [place] [address] E MARKETING SPECIALIST: Dwayne Fuentes M.D. For any questions, please call customer service at FREQUENCY:OTHER Resulting Agency Comment Specimen source: Plasma Result [facility] Srinivas Agrawal MD LAB BLOOD ORDERABLES Final Result Performing Organization Address City/[facility] [place]/ZIP Co de Phone Number [facility] See order comments or contact performing lab Unknown, [place] * [facility] Lab Results (07/09/2024) Only the most recent of3 resultswithin the time period is included. Pathologist [facility] spKt/V (Daugirdas II) 1.46 [facility] PCR 30.86 [facility] spKt/V Gotch 1.46 [facility] nPCR_HD 0.65 [facility] eKdrt/V 1.24 [facility] eKt/V Gotch 1.24 [facility] WSTDKT/V 2.4 [facility] eKt/V (Tattersall) 1.24 [facility] eNPCR 0.59 [facility] 07/09/2024 07/09/2024 Result [facility] Ordering Provider LAB BLOOD ORDERABLES Final Result Performing Organization Address [facility] [place]/ZIP Co de Phone Number [facility] Contact Performing lab Unknown, [place] * SPECIAL CHEMISTRY (07/07/2024) Pathologist [facility] Hemoglobin A1C 5.7 4.8 - 5.9 % [facility] 07/07/2024 07/10/2024 11: 15 AM EDT Narrative [facility] - 07/10/2024 Unless otherwise specified, test(s) performed at: [facility], [address] [place], [place] [id number] E MARKETING SPECIALIST: Dwayne Fuentes M.D. For any questions, please call customer service at FREQUENCY:MONTHLY Resulting Agency Comment Specimen source: Blood Result [facility] Srinivas Agrawal MD LAB BLOOD BANK TEST ORDERA BLES Final Result Performing Organization Address City/[facility] [place]/[facility] Co de Phone Number [facility] See order comments or contact performing lab Unknown, [place] * IMMUNO CHEMISTRY (07/07/2024) Only the most recent of2 resultswithin the time period is included. Pathologist [facility] Hep B Surface Ag Negative Negative [facility] 07/07/2024 07/10/2024 11: 24 AM EDT Narrative Resulting Agency Comment Specimen source: Serum Srinivas Agrawal MD LAB BLOOD ORDERABLES Final Result Performing Organization Address [facility] [place]/[facility] de Phone Number [facility] See order comments or contact performing lab Unknown, [place] * (ABNORMAL) TRACE ELEMENTS (04/30/2024) Pathologist [facility] Aluminum 31(H) 0 - 10 mcg/L [facility] Comment: This test was developed and its performance characteristics determined by [facility]. It has not been cleared or approved [...] 05/04/2024 Unless otherwise specified, test(s) performed at: [facility], [address] [place] [address] E MARKETING SPECIALIST: Dwayne Fuentes M.D. For any questions, please call customer service at FREQUENCY:OTHER Resulting Agency Comment Specimen source: Serum Srinivas Agrawal MD LAB BLOOD ORDERABLES Final Result Performing Organization Address [facility] [place]/[facility] de Phone Number [facility] See order comments or contact performing lab Unknown, [place] from Last 3 Months Insurance MEDICARE MEDICARE [facility] Care Teams Edge Sander Relationship Specialty Start Date End Date Marita Wetzel DO [address] [place] [address] PCP - General Family Medicine 11/14/22
--- OUTSIDE RECORDS SUMMARY | 2024-07-28 15:53 | XMS_ITS | Encounter Summary ---
Author Organization [facility] Address [address] [place] [address] Phone Care Team Providers Care Lightout Examiner Name Role Phone Marita Wetzel DO Primary Care Provider Unava ilable Encounter Details Date Type Department Care Team (Late st Contact Info) Description 03/18/2023 Documentation Only [facility] [address] [place] [address] Bernardo Doty MD [address] [place] [address] [place] [address] Social History Tobacco Use Types [...] Only [facility] [place], - Vascular Access Center [address] [place] [address] documented as of this encounter Visit Diagnoses Not on filedocumented in this encounter Care Teams Lightout Examiner Relationship Specialty Start Date End Date Marita Wetzel DO [address] [place] [address] PCP - General Family Medicine 11/14/22 documented as of this encounter
--- OUTSIDE RECORDS SUMMARY | 2024-07-28 15:53 | XMS_ITS | Encounter Summary ---
Author Organization [facility] Address [address] [place] [address] Care Team Providers Care Musical Therapist Name Role Phone Marita Wetzel DO Primary Care Provider +1- [phone] Encounter Details Date Type Department Care Team (Late st Contact Info) Description 05/31/2024 Lab Requisition [facility] - Main Lab [address] [facility] [employer] [place] [phone] Marily Gordillo MD [address] [place] [phone] Acute kidney failure, unspecified (CMS/HCC); Chronic embolism [...] unspecified documented in this encounter Care Teams Musical Therapist Relationship Specialty Start Date End Date Marita Wetzel DO [address] [place], [place] PCP - General 01/09/23 documented as of this encounter
--- OUTSIDE RECORDS SUMMARY | 2024-07-28 15:53 | XMS_ITS | Encounter Summary ---
Author Organization [facility] Address [address] [place] [address] Phone Care Team Providers Care Vat Overhauler Name Role Phone Marita Wetzel DO Primary Care Provider Unava ilable Encounter Details Date Type Department Care Team (Late st Contact Info) Description 07/04/2023 Documentation Only [facility] [address] [facility] [place] [phone] Pauline Aguayo [address] [place] [phone] Social History Tobacco Use Types Packs/Day Years [...] [facility] Vascular Access Center [address] [place] [phone] documented as of this encounter Visit Diagnoses Not on filedocumented in this encounter Care Teams Vat Overhauler Relationship Specialty Start Date End Date Marita Wetzel DO [address] [place] [address] PCP - General Family Medicine 11/14/22 documented as of this encounter
--- OUTSIDE RECORDS SUMMARY | 2024-07-28 15:53 | XMS_ITS | Encounter Summary ---
Author Organization [facility] Address [address] [place] [address] Phone Care Team Providers Care Mechanical Apprentice Name Role Phone Marita Wetzel DO Primary Care Provider Unava ilable Encounter Details Date Type Department Care Team (Late st Contact Info) Description 12/06/2022 Documentation Only [facility] [address] [place] [phone] [place] [address] [place] [phone] Social History Tobacco Use Types Packs/Day Years [...] Services Of [facility] - Vascular Access Center [address] [place] [phone] documented as of this encounter Visit Diagnoses Not on filedocumented in this encounter Care Teams Mechanical Apprentice Relationship Specialty Start Date End Date Marita Wetzel DO [address] [place] [address] PCP - General Family Medicine 11/14/22 documented as of this encounter
--- OUTSIDE RECORDS SUMMARY | 2024-07-28 15:53 | XMS_ITS | Encounter Summary ---
Author Organization [facility] Address [address] [place] [address] Care Team Providers Care Cutter Out Name Role Phone Marita Wetzel DO Primary Care Provider +1- [phone] Encounter Details Date Type Department Care Team (Late st Contact Info) Description 05/30/2024 Lab Requisition [facility] - Main Lab [address] [facility] [employer] [place] [phone] Marily Gordillo MD [address] [place] [phone] Chronic embolism and thrombosis of unspecified vein; [...] unspecified documented in this encounter Care Teams Cutter Out Relationship Specialty Start Date End Date Marita Wetzel DO [address] [place], [place] PCP - General 01/09/23 documented as of this encounter
--- OUTSIDE RECORDS SUMMARY | 2024-07-28 15:53 | XMS_ITS | Encounter Summary ---
Author Organization [facility] Address [address] [place] [address] Care Team Providers Care Sewer Pipe Offbearer Name Role Phone Marita Wetzel Primary Care Provider +1- [phone] Encounter Details Date Type Department Care Team (Late st Contact Info) Description 05/07/2024 Lab Requisition [facility] - Main Lab [address] [place] [phone] Marily Gordillo MD [address] [place] [address] Chronic embolism and thrombosis of [...] CHEMISTRY METHOD 05/10/2024 11:45 AM EST [facility] Potassium 3.8 3.5 - 5.5 mmol/L LAB CHEMISTRY METHOD 05/10/2024 11:45 AM [facility] Chloride 96 96 - 110 mmol/L LAB CHEMISTRY METHOD 05/10/2024 11:45 AM [facility] CO2 28 21 - 32 mmol/L LAB CHEMISTRY METHOD 05/10/2024 11:45 AM [facility] Anion Gap 11 3 - 11 LAB CHEMISTRY METHOD 05/10/2024 11:45 AM [facility] Glucose 215(H) 70 - 100 mg/dL LAB CHEMISTRY METHOD 05/10/2024 11:45 AM [facility] BUN 45(H) 5 - 25 mg/dL LAB CHEMISTRY METHOD 05/10/2024 11:45 AM [facility] Creatinine 3.47(H) 0.50 - 1.10 mg/dL LAB CHEMISTRY METHOD 05/10/2024 11:45 AM [facility] eGFR 14(L) >=60 mL/min/1. 73m2 LAB CHEMISTRY METHOD 05/10/2024 11:45 AM [facility] Comment:Calculation based on the??Chronic Kidney Disease Epidemiology Collaboration (CKD-EPI) equation refit??without adjustment for race. BUN/Creatinine Ratio 13.0 LAB CHEMISTRY METHOD 05/10/2024 11:45 AM [facility] Albumin 1.7(L) 3.2 - 5.0 g/dL LAB CHEMISTRY METHOD 05/10/2024 11:45 AM [facility] Calcium 8.4(L) 8.5 - 10.5 mg/dL LAB CHEMISTRY METHOD 05/10/2024 11:45 AM [facility] Phosphorus 2.1(L) 2.5 - 4.5 mg/dL LAB CHEMISTRY METHOD 05/10/2024 11:45 AM [facility] Blood Venous blood specimen / Unknown Venipuncture / Unknown 05/10/2024 5:50 AM EST 05/10/2024 9:58 AM EST us Marily Gordillo MD LAB BLOOD ORDERABLES Final Resul t [facility] ([facility]) [facility] [address] [place] [address], * Tacrolimus level (05/10/2024 5:50 AM EST) [...] developed and the performance characteristics determined by [facility]. This confirmation testing has not been cleared or approved by the FDA. The laboratory is regulated under CLIA as qualified to perform high-complexity testing. This test is used for patient testing purposes. It should not be regarded as investigational or for research. Test performed at [facility], [address], [place], [place] [address] ? [phone] Ashtyn Leigh MD, PhD - Door Patcher Blood Venous blood specimen / Unknown Venipuncture / Unknown 05/10/2024 5:50 AM EST 05/10/2024 9:58 AM EST us Marily Gordillo MD LAB BLOOD ORDERABLES Final Resul t [facility] [address] [place] [address] documented in this encounter Visit Diagnoses Diagnosis Chronic embolism and thrombosis of unspecified vein Acute kidney failure, unspecified (CMS/HCC) Acute kidney failure, unspecified documented in this encounter Care Teams Sewer Pipe Offbearer Relationship Specialty Start Date End Date Marita Wetzel DO [address] [place] [address] PCP - General 01/09/23 documented as of this encounter
--- OUTSIDE RECORDS SUMMARY | 2024-07-28 15:53 | XMS_ITS | Encounter Summary ---
Author Organization [facility] Address [address] [place] [address] Phone Care Team Providers Care Tool Design Checker Name Role Phone Marita Wetzel DO Primary Care Provider Unava ilable Encounter Details Date Type Department Care Team (Late st Contact Info) Description 10/17/2023 Documentation Only [facility] [address] [place] [phone] [place] [address] [place] [phone] Social History Tobacco Use Types Packs/Day Years [...] Only [facility] - V[facility] Access Center [address] [place] [phone] documented as of this encounter Visit Diagnoses Not on filedocumented in this encounter Care Teams Tool Design Checker Relationship Specialty Start Date End Date Marita Wetzel DO [address] [place] [address] PCP - General Family Medicine 11/14/22 documented as of this encounter
--- OUTSIDE RECORDS SUMMARY | 2024-07-28 15:53 | XMS_ITS | Encounter Summary ---
Author Organization [facility] Address [address] [place] [address] Phone Care Team Providers Care Internet Database Specialist Name Role Phone Marita Wetzel DO Primary Care Provider Unava ilable Encounter Details Date Type Department Care Team (Late st Contact Info) Description 05/20/2023 Documentation Only [facility] [address] [place] [phone] [place] [address] [place] [phone] Social History Tobacco Use Types Packs/Day Years [...] [facility] Vascular Access Center [address] [place] [phone] documented as of this encounter Visit Diagnoses Not on filedocumented in this encounter Care Teams Internet Database Specialist Relationship Specialty Start Date End Date Marita Wetzel DO [address] [place] [address] PCP - General Family Medicine 11/14/22 documented as of this encounter
--- OUTSIDE RECORDS SUMMARY | 2024-07-28 15:53 | XMS_ITS | Encounter Summary ---
Author Organization [employer] Address [address] [place] [address] 7t [place] [address] Care Team Providers Care Audio Visual Arts Director Name Role Phone Marita Wetzel DO Primary Care Provider Carmen Becker PharmD Unavailable [phone] Encounter Details Date Type Department Care Team (Late st Contact Info) Description 10/14/2022 Abstract [facility] [address] [place] [address] Marita Wetzel DO 230 [place] [address] Social History Tobacco Use Types Packs/Day Years [...] EDT Office Visit [facility] [address] [place], [place] [phone] Marita Wetzel DO 230 [place], [place] [phone] documented as of this encounter Visit Diagnoses Not on filedocumented in this encounter Additional Health Concerns Assessment Noted Time PHQ-9 Depression Total Score: 0 10/09/19 23 9:31 AM EDT documented as of this encounter Care Teams Audio Visual Arts Director Relationship Specialty Start Date End Date Marita Wetzel DO 230 [place], [place] [phone] PCP - General Family Medicine 04/21/18 Carmen Becker PharmD 230 [place], [place] [phone] Pharmacist Internal Medicine 07/21/23 01/21/24 [facility] 05/22/24 documented as of this encounter
--- OUTSIDE RECORDS SUMMARY | 2024-07-28 15:53 | XMS_ITS | Encounter Summary ---
Author Organization [employer] Address [address] [place] [address] 7 [place] [address] Care Team Providers Care Drier Operator Name Role Phone Marita Wetzel DO Primary Care Provider + [phone] Reason for Visit * Reason Onset Date Comments Med Refill 06/25/2024 Encounter Details Date Type Department Care Team (Late st Contact Info) Description 06/25/2024 Telephone [facility] [address] [place] [address] Marita Wetzel DO 230 [place] [address] Med Refill Social History Tobacco Use Types [...] 1 g tablet To be sent to: [facility]/pharmacy [address] [place] [address] *states it was prescribed before documented in this encounter Plan of Treatment Upcoming Encounters Date Type Department Care Team (Late st Contact Info) Description 08/20/2024 10:00 AM EDT Office Visit [facility] [address] [place] [address] Marita Wetzel DO [address] [place] [address] documented as of this encounter Goals Goal [...] documented as of this encounter Care Teams Drier Operator Relationship Specialty Start Date End Date Marita Wetzel DO [address] [place] [address] PCP - General Family Medicine 04/21/18 [facility] 05/22/24 documented as of this encounter
--- OUTSIDE RECORDS SUMMARY | 2024-07-28 15:54 | XMS_ITS | Encounter Summary ---
Author Organization [facility] Address [address] [place] [address] Care Team Providers Care Staff Veterinarian Name Role Phone Marita Wetzel DO Primary Care Provider [phone]- [phone] Encounter Details Date Type Department Care Team (Late st Contact Info) Description 04/10/[address] [facility] - Main Lab 299 [facility] [place] [place] [phone] Marily Gordillo MD [address] [place] [phone] Chronic embolism and thrombosis of unspecified vein; [...] unspecified documented in this encounter Care Teams Staff Veterinarian Relationship Specialty Start Date End Date Marita Wetzel DO 230 [place], [place] PCP - General 01/09/23 documented as of this encounter
--- OUTSIDE RECORDS SUMMARY | 2024-07-28 15:54 | XMS_ITS | Encounter Summary ---
Author Organization [facility] Address [address] [place] [address] Phone Care Team Providers Care Hide Washer Name Role Phone Marita Wetzel DO Primary Care Provider Unava ilable Encounter Details Date Type Department Care Team (Late st Contact Info) Description 04/13/2024 Documentation Only [facility] [address] [place] [phone] [place] [address] [place] [phone] Social History Tobacco Use Types Packs/Day Years [...] Only [facility] [address] [place] [phone] documented as of this encounter Visit Diagnoses Not on filedocumented in this encounter Care Teams Hide Washer Relationship Specialty Start Date End Date Marita Wetzel DO [address] [place] [address] PCP - General Family Medicine 11/14/22 documented as of this encounter
--- OUTSIDE RECORDS SUMMARY | 2024-07-28 15:54 | XMS_ITS | Encounter Summary ---
Author Organization [facility] Address [address] [place] [address] Care Team Providers Care Cafeteria Aide Name Role Phone Mary JaneMarita yousif Primary Care Provider +1- [phone] Encounter Details Date Type Department Care Team (Late st Contact Info) Description 04/17/2024 Lab Requisition [facility] - Main Lab 299 [facility] [place] [address] Catalina Burr MD [address] [place] [address] End stage renal disease (CMS/HCC); Anemia, unspecified [...] developed and the performance characteristics determined by [facility]. This confirmation testing has not been cleared or approved by the FDA. The laboratory is regulated under CLIA as qualified to perform high-complexity testing. This test is used for patient testing purposes. It should not be regarded as investigational or for research. Test performed at [facility], [address] , [place], [place] ??[address] ? [phone] Ashtyn Leigh MD, PhD - Child Psychologist Blood Venous blood specimen / Unknown Venipuncture / Unknown 04/17/2024 5:33 AM EST 04/17/2024 9:33 AM EST Catalina Burr MD LAB BLOOD ORDERABLES Final Resul t [facility] [address] [place] [address] * (ABNORMAL) Reticulocyte count (04/17/2024 5:33 AM EST) Retic Ct Abs 0.050 0.030 - 0.090 M/mcL LAB HEMETOLOGY METHOD 04/17/2024 10:42 AM EST [facility] Retic Ct Pct 1.8(H) 0.7 - 1.7 % LAB HEMETOLOGY METHOD 04/17/2024 10:42 AM [facility] Immature Retic Fract 24.7(H) 2.3 - 15.9 % LAB HEMETOLOGY METHOD 04/17/2024 10:42 AM EST [facility] Reticulocyte Hemoglobin 28.3(L) >29.0 pcg LAB HEMETOLOGY METHOD 04/17/2024 10:42 AM [facility] Blood Venous blood specimen / Unknown Venipuncture / Unknown 04/17/2024 5:33 AM EST 04/17/2024 9:33 AM EST us Catalina Burr MD LAB BLOOD ORDERABLES Final Resul t [facility] [address] [place] [address], [place] [phone] * (ABNORMAL) Comprehensive metabolic panel (04/17/2024 5:33 AM EST) Sodium 146(H) 133 - 145 mmol/L LAB CHEMISTRY METHOD 04/17/2024 11:02 AM EST [facility] Potassium 3.4(L) 3.5 - 5.5 mmol/L LAB CHEMISTRY METHOD 04/17/2024 11:02 AM [facility] Chloride 116(H) 96 - 110 mmol/L LAB CHEMISTRY METHOD 04/17/2024 11:02 AM [facility] CO2 21 21 - 32 mmol/L LAB CHEMISTRY METHOD 04/17/2024 11:02 AM [facility] Anion Gap 9 3 - 11 LAB CHEMISTRY METHOD 04/17/2024 11:02 AM [facility] Glucose 61(L) 70 - 100 mg/dL LAB CHEMISTRY METHOD 04/17/2024 11:02 AM [facility] BUN 48(H) 5 - 25 mg/dL LAB CHEMISTRY METHOD 04/17/2024 11:02 AM [facility] Creatinine 3.71(H) 0.50 - 1.10 mg/dL LAB CHEMISTRY METHOD 04/17/2024 11:02 AM [facility] eGFR 13(L) >=60 mL/min/1. 73m2 LAB CHEMISTRY METHOD 04/17/2024 11:02 AM [facility] Comment:Calculation based on the??Chronic Kidney Disease Epidemiology Collaboration (CKD-EPI) equation refit??without adjustment for race. BUN/Creatinine Ratio 12.9 LAB CHEMISTRY METHOD 04/17/2024 11:02 AM [facility] Calcium 8.7 8.5 - 10.5 mg/dL LAB CHEMISTRY METHOD 04/17/2024 11:02 AM [facility] AST (SGOT) 8(L) 10 - 42 unit/L LAB CHEMISTRY METHOD 04/17/2024 11:02 AM [facility] ALT (SGPT) 9(L) 10 - 60 unit/L LAB CHEMISTRY METHOD 04/17/2024 11:02 AM [facility] Alkaline Phosphatase 61 42 - 121 unit/L LAB CHEMISTRY METHOD 04/17/2024 11:02 AM [facility] Total Protein 5.6(L) 6.0 - 8.0 g/dL LAB CHEMISTRY METHOD 04/17/2024 11:02 AM [facility] Albumin 2.0(L) 3.2 - 5.0 g/dL LAB CHEMISTRY METHOD 04/17/2024 11:02 AM [facility] Total Bilirubin 0.5 0.0 - 1.4 mg/dL LAB CHEMISTRY METHOD 04/17/2024 11:02 AM [facility] Blood Venous blood specimen / Unknown Venipuncture / Unknown 04/17/2024 5:33 AM EST 04/17/2024 9:33 AM EST Catalina Burr MD LAB BLOOD ORDERABLES Final Resul t [facility] [address] [place] [address], * (ABNORMAL) Complete blood count (04/17/2024 5:33 AM EST) WBC 9.3 4.8 - 10.8 K/mcL LAB HEMETOLOGY METHOD 04/17/2024 10:42 AM [facility] RBC 3.10(L) 3.80 - 4.80 M/mcL LAB HEMETOLOGY METHOD 04/17/2024 10:42 AM [facility] Hemoglobin 8.3(L) 11.5 - 16.0 g/dL LAB HEMETOLOGY METHOD 04/17/2024 10:42 AM [facility] Hematocrit 30.3(L) 35.0 - 47.0 % LAB HEMETOLOGY METHOD 04/17/2024 10:42 AM [facility] MCV 98.1(H) 79.0 - 98.0 FL LAB HEMETOLOGY METHOD 04/17/2024 10:42 AM [facility] MCH 26.9(L) 27.0 - 32.0 pcg LAB HEMETOLOGY METHOD 04/17/2024 10:42 AM [facility] MCHC 27.4(L) 32.0 - 37.0 g/dL LAB HEMETOLOGY METHOD 04/17/2024 10:42 AM [facility] RDW 16.9(H) 11.0 - 15.0 % LAB HEMETOLOGY METHOD 04/17/2024 10:42 AM [facility] Platelets 206 130 - 400 K/mcL LAB HEMETOLOGY METHOD 04/17/2024 10:42 AM [facility] MPV 10.1 7.0 - 11.0 FL LAB HEMETOLOGY METHOD 04/17/2024 10:42 AM [facility] NRBC 0.0 <1.0 % LAB HEMETOLOGY METHOD 04/17/2024 10:42 AM [facility] NRBC Absolute 0.00 <0.10 K/mcL LAB HEMETOLOGY METHOD 04/17/2024 10:42 AM [facility] Blood Venous blood specimen / Unknown Venipuncture / Unknown 04/17/2024 5:33 AM EST 04/17/2024 9:33 AM EST us Catalina Burr MD LAB BLOOD ORDERABLES Final Resul t [facility] [address] [place] [address], documented in this encounter Visit Diagnoses Diagnosis End stage renal disease ([facility]) End stage renal disease Anemia, unspecified documented in this encounter Care Teams Cafeteria Aide Relationship Specialty Start Date End Date Marita Wetzel DO [address] [place] [address] PCP - General 01/09/23 documented as of this encounter
--- OUTSIDE RECORDS SUMMARY | 2024-07-28 15:54 | XMS_ITS | Encounter Summary ---
Author Organization [facility] Address [address] [place] [address] Care Team Providers Care Supervisor Bridges And Buildings Name Role Phone Marita Wetzel DO Primary Care Provider +1- [phone] Encounter Details Date Type Department Care Team (Late st Contact Info) Description 2024 Lab Requisition [facility] - Main Lab 299 [facility] [place] [phone] Marily Gordillo MD [address] [place] [address] Chronic kidney disease, unspecified; Anemia, [...] documented in this encounter Care Teams Supervisor Bridges And Buildings Relationship Specialty Start Date End Date Marita Wetzel DO [address] [place] [address] PCP - General 01/09/23 documented as of this encounter
--- OUTSIDE RECORDS SUMMARY | 2024-07-28 15:54 | XMS_ITS | Encounter Summary ---
Author Organization [facility] Address [address] [place] [address] Care Team Providers Care Director Safety Name Role Phone Mary JaneMarita yousif Primary Care Provider +1- [phone] Encounter Details Date Type Department Care Team (Late st Contact Info) Description 03/30/[address] [facility] - Main Lab 299 [facility] [place] [address] Catalina Burr MD [address] [place] [address] Chronic embolism and thrombosis of unspecified vein; [...] CHEMISTRY METHOD 03/31/2024 12:06 PM EST [facility] Blood Venous blood specimen / Unknown Venipuncture / Unknown 03/31/2024 9:23 AM EST 03/31/2024 11:25 AM EST Catalina Burr MD LAB BLOOD ORDERABLES Final Resul t Performing Organization Address [facility]/ZIP Co de Phone Number [facility] [address] [place] [address], [place] [phone] * (ABNORMAL) Ferritin (03/31/2024 9:23 AM EST) Ferritin 6,203(H) 8 - 252 ng/mL LAB CHEMISTRY METHOD 03/31/2024 12:10 PM EST [facility] Blood Venous blood specimen / Unknown Venipuncture / Unknown 03/31/2024 9:23 AM EST 03/31/2024 11:25 AM EST Catalina Burr MD LAB BLOOD ORDERABLES Final Resul t Performing Organization Address [facility]/ZIP Co de Phone Number [facility] [address] [place] [address], [place] [phone] documented in this encounter Visit Diagnoses Diagnosis Chronic embolism and thrombosis of unspecified vein Acute kidney failure, unspecified (CMS/HCC) Acute kidney failure, unspecified documented in this encounter Care Teams Director Safety Relationship Specialty Start Date End Date Marita Wetzel DO [address] [place] [address] PCP - General 01/09/23 documented as of this encounter
--- OUTSIDE RECORDS SUMMARY | 2024-07-28 15:54 | XMS_ITS | Encounter Summary ---
Author Organization [facility] Address [address] [place] [address] Phone Care Team Providers Care Milled Lumber Grader Name Role Phone Marita Wetzel DO Primary Care Provider Unava ilable Encounter Details Date Type Department Care Team (Late st Contact Info) Description 07/26/2024 Treatment [facility], [address] [place] [address] Jeanne [place] MD [address] [place] [address] [place] [phone] End stage renal disease; Dependence on renal [...] care for end stage renal disease. Attending [employer]: JEANNE [place] MD Dialysis Location: [facility] DIAL[facility] Schedule: Shift: 3 OVERVIEW Patient [...] Run even or positive. HOME MEDICATIONS Current [facility] Outpatient Medications amlodipine 10 mg tablet [...] capsule by mouth once a day. Current [facility] Allergies Allergen: codeine Reaction: Unknown Allergen: [...] K, 2.50 Ca, 1.0 Mg, 100 Dextrose ([id number]) Sodium: 137 Bicarb: 35 Pre Dialysis Vitals [...] reviewed. Dietary adjustments made in conjunction with computer designer. 7.Transplant: not a candidate. 06/21/24 Patient is stable, recently cd from [facility] after episode of pneumonia Medications reviewed Physical [...] reviewed. Dietary adjustments made in conjunction with computer designer. Transplant: Not a candidate. 05/24/24 Patient is [...] reviewed. Dietary adjustments made in conjunction with computer designer. 7.Transplant: Not a candidate. decreasing tacrolimus doing [...] reviewed. Dietary adjustments made in conjunction with computer designer. Transplant: The patient will be re-evaluated for a kidney transplant. Signed by: JEANNE BAILEY MD on 07/27/2024 at 12:04:25 AM documented in this encounter Plan of Treatment Upcoming Encounters Date Type Department Care Team (Late st Contact Info) Description 11/03/2024 12:30 PM EDT Scheduled Only [facility] [address] [place] [address] documented as of this encounter Visit Diagnoses Diagnosis End stage renal disease Dependence on renal dialysis documented in this encounter Care Teams Milled Lumber Grader Relationship Specialty Start Date End Date Marita Wetzel DO 230 [place] [address] PCP - General Family Medicine 11/14/22 documented as of this encounter
--- OUTSIDE RECORDS SUMMARY | 2024-07-28 15:54 | XMS_ITS | Encounter Summary ---
Author Organization [facility] Address [address] [place] [address] Care Team Providers Care Floating Derrick Operator Name Role Phone Marita Wetzel DO Primary Care Provider +1- [phone] Encounter Details Date Type Department Care Team (Late st Contact Info) Description 03/15/2024 Lab Requisition [facility] - Main Lab 299 [facility] [place] [phone] Catalina Burr MD [address] [place] [address] Acute kidney failure, unspecified (CMS/HCC); Chronic embolism [...] vein documented in this encounter Care Teams Floating Derrick Operator Relationship Specialty Start Date End Date Marita Wetzel DO [address] [place], [place] PCP - General 01/09/23 documented as of this encounter
--- OUTSIDE RECORDS SUMMARY | 2024-07-28 15:54 | XMS_ITS | Encounter Summary ---
Author Organization [employer] Address [address] [place] [address] 7 [place] [address] Care Team Providers Care Sourcing Analyst Name Role Phone Marita Wetzel DO Primary Care Provider + [phone] Reason for Visit * Reason Onset Date Comments Hospital Follow-up 06/11/2024 Encounter Details Date Type Department Care Team ([facility] st Contact Info) Description 06/11/2024 Telephone [facility] MEDICINE [address] [place] [address] Marita Wetzel DO 230 [place], [place] [phone] Hospital Follow-up Social History Tobacco Use Types [...] from pt requesting a HDF appt. Hospital: [facility] Date of admission: 05/31/2024 Discharge date: ------ Diagnosed:kidney failure *Send message to [facility] Coordinators documented in this encounter Plan of Treatment Upcoming Encounters Date Type Department Care Team (Late st Contact Info) Description 08/20/2024 10:00 AM EDT Office Visit [facility] MEDICINE [address] [place] [address] Marita Wetzel DO [address] [place], [place] [phone] documented as of this encounter Goals Goal [...] documented as of this encounter Care Teams Sourcing Analyst Relationship Specialty Start Date End Date Marita Wetzel DO [address] [place] [address] PCP - General Family Medicine 04/21/18 [facility] 05/22/24 documented as of this encounter
--- OUTSIDE RECORDS SUMMARY | 2024-07-28 15:54 | XMS_ITS | Encounter Summary ---
Author Organization [facility] Address [address] [place] [address] Care Team Providers Care Mash Tub Cooker Name Role Phone Marita Wetzel DO Primary Care Provider +1- [phone] Encounter Details Date Type Department Care Team (Late st Contact Info) Description 04/29/[address] [facility] - Main Lab 299 [facility] [employer] [place] [phone] Marily Gordillo MD [address] [place] [phone] Chronic embolism and thrombosis of unspecified vein; [...] unspecified documented in this encounter Care Teams Mash Tub Cooker Relationship Specialty Start Date End Date Marita Wetzel DO [address] [place], [place] PCP - General 01/09/23 documented as of this encounter
--- OUTSIDE RECORDS SUMMARY | 2024-07-28 15:54 | XMS_ITS | Encounter Summary ---
Author Organization [facility] Address [address] [place] [address] Care Team Providers Care Electrical Journeyman Name Role Phone Marita Wetzel DO Primary Care Provider +1- [phone] Encounter Details Date Type Department Care Team (Late st Contact Info) Description 04/28/2024 Lab Requisition [facility] - Main Lab 299 [facility] [employer] [place] [phone] Marily Gordillo MD [address] [place] [address] Chronic kidney disease, unspecified; Anemia, [...] unspecified documented in this encounter Care Teams Electrical Journeyman Relationship Specialty Start Date End Date Marita Wetzel DO [address] [place] [address] PCP - General 01/09/23 documented as of this encounter
--- OUTSIDE RECORDS SUMMARY | 2024-07-28 15:54 | XMS_ITS | Encounter Summary ---
Author Organization [facility] Address [address] [place] [address] Care Team Providers Care Bacteriologist Soil Name Role Phone Marita Wetzel DO Primary Care Provider +1- [phone] Encounter Details Date Type Department Care Team (Late st Contact Info) Description 04/28/2024 Lab Requisition [facility] - Main Lab 299 [facility] [employer] [place] [phone] Marily Gordillo MD [address] [place] [address] Chronic kidney disease, unspecified; Anemia, [...] unspecified documented in this encounter Care Teams Bacteriologist Soil Relationship Specialty Start Date End Date Marita Wetzel DO [address] [place] [address] PCP - General 01/09/23 documented as of this encounter
--- OUTSIDE RECORDS SUMMARY | 2024-07-28 15:54 | XMS_ITS | Encounter Summary ---
Author Organization [facility] Address [address] [place] [address] Phone Care Team Providers Care Warehouse Insulation Worker Name Role Phone Marita Wetzel DO Primary Care Provider Unava ilable Encounter Details Date Type Department Care Team (Late st Contact Info) Description 07/29/2023 Documentation Only [facility] [address] [phone] Pauline Aguayo [address] [place] [phone] Social History Tobacco Use Types Packs/Day Years [...] Only [facility] [address] [place] [phone] documented as of this encounter Visit Diagnoses Not on filedocumented in this encounter Care Teams Warehouse Insulation Worker Relationship Specialty Start Date End Date Marita Wetzel DO [address] [place] [address] PCP - General Family Medicine 11/14/22 documented as of this encounter
--- OUTSIDE RECORDS SUMMARY | 2024-07-28 15:54 | XMS_ITS | Encounter Summary ---
Author Organization [facility] Address [address] [place] [address] Phone Care Team Providers Care Chief I Dispatcher Name Role Phone Marita Wetzel DO Primary Care Provider Unava ilable Encounter Details Date Type Department Care Team (Late Contact Info) Description 06/12/2023 Documentation Only [facility] [address] [place] [phone] [place] [address] [place] [phone] Social History Tobacco Use Types Packs/Day Years [...] Only [facility] [address] [place] [place] [phone] documented as of this encounter Visit Diagnoses Not on filedocumented in this encounter Care Teams Chief I Dispatcher Relationship Specialty Start Date End Date Marita Wetzel DO [address] [place] [address] PCP - General Family Medicine 11/14/22 documented as of this encounter
--- OUTSIDE RECORDS SUMMARY | 2024-07-28 15:54 | XMS_ITS | Encounter Summary ---
Author Organization [facility] Address [address] [place] [address] Care Team Providers Care E D Tech Name Role Phone Marita Wetzel Primary Care Provider +1- [phone] Encounter Details Date Type Department Care Team (Late st Contact Info) Description 04/30/2024 Lab Requisition [facility] - Main Lab [address] [place] [phone] Marily Gordillo MD [address] [place] [phone] Anemia, unspecified; Chronic embolism and thrombosis of [...] LAB CHEMISTRY METHOD 05/03/2024 10:59 AM EST [facility] Blood Venous blood specimen / Unknown Venipuncture / Unknown 05/03/2024 6:09 AM EST 05/03/2024 9:29 AM EST Marily Gordillo MD LAB BLOOD ORDERABLES Final Resul t Performing Organization Address City/[facility]/ZIP Co de Phone Number [facility] [address] [place] [address], [place] [phone] * (ABNORMAL) Ferritin (05/03/2024 6:09 AM EST) Ferritin 2,737(H) 8 - 252 ng/mL LAB CHEMISTRY METHOD 05/03/2024 10:59 AM EST [facility] Blood Venous blood specimen / Unknown Venipuncture / Unknown 05/03/2024 6:09 AM EST 05/03/2024 9:29 AM EST Marily Gordillo MD LAB BLOOD ORDERABLES Final Resul t Performing Organization Address [facility]/ZIP Co de Phone Number [facility] [address] [place] [address], [place] [phone] documented in this encounter Visit Diagnoses Diagnosis Anemia, unspecified Chronic embolism and thrombosis of unspecified vein Acute kidney failure, unspecified (CMS/HCC) Acute kidney failure, unspecified documented in this encounter Care Teams E D Tech Relationship Specialty Start Date End Date Marita Wetzel DO [address] [place] [address] PCP - General 01/09/23 documented as of this encounter
--- OUTSIDE RECORDS SUMMARY | 2024-07-28 15:54 | XMS_ITS | Encounter Summary ---
Author Organization [facility] Address [address] [place] [address] Care Team Providers Care Water Analyst Name Role Phone Marita Wetzel Primary Care Provider +1- [phone] Encounter Details Date Type Department Care Team (Late st Contact Info) Description 04/02/2024 Lab Requisition [facility] - Main Lab 299 [facility] [place] [phone] Marily Gordillo MD [address] [place] [phone] Chronic embolism and thrombosis of unspecified vein; [...] performed at [facility], [address], [place], [place] ??[address] ? [phone] Ashtyn Leigh MD, PhD - Highwall Drill Operator Blood Venous blood specimen / Unknown Venipuncture / Unknown 04/05/2024 6:56 AM EST 04/05/2024 10:25 AM EST us Marily oGrdillo MD LAB BLOOD ORDERABLES Final Resul t [place] [address] * (ABNORMAL) Renal function panel (04/05/2024 6:56 AM EST) Sodium 138 133 - 145 mmol/L LAB CHEMISTRY METHOD 04/05/2024 11:52 AM [facility] Potassium 5.0 3.5 - 5.5 mmol/L LAB CHEMISTRY METHOD 04/05/2024 11:52 AM [facility] Chloride 107 96 - 110 mmol/L LAB CHEMISTRY METHOD 04/05/2024 11:52 AM [facility] CO2 20(L) 21 - 32 mmol/L LAB CHEMISTRY METHOD 04/05/2024 11:52 AM [facility] Anion Gap 11 3 - 11 LAB CHEMISTRY METHOD 04/05/2024 11:52 AM [facility] Glucose 104(H) 70 - 100 mg/dL LAB CHEMISTRY METHOD 04/05/2024 11:52 AM [facility] BUN 56(H) 5 - 25 mg/dL LAB CHEMISTRY METHOD 04/05/2024 11:52 AM [facility] Creatinine 4.43(H) 0.50 - 1.10 mg/dL LAB CHEMISTRY METHOD 04/05/2024 11:52 AM [facility] eGFR 11(L) >=60 mL/min/1. 73m2 LAB CHEMISTRY METHOD 04/05/2024 11:52 AM [facility] Comment:Calculation based on the??Chronic Kidney Disease Epidemiology Collaboration (CKD-EPI) equation refit??without adjustment for race. BUN/Creatinine Ratio 12.6 LAB CHEMISTRY METHOD 04/05/2024 11:52 AM [facility] Albumin 1.9(L) 3.2 - 5.0 g/dL LAB CHEMISTRY METHOD 04/05/2024 11:52 AM EST [facility] Calcium 9.0 8.5 - 10.5 mg/dL LAB CHEMISTRY METHOD 04/05/2024 11:52 AM [facility] Phosphorus 3.1 2.5 - 4.5 mg/dL LAB CHEMISTRY METHOD 04/05/2024 11:52 AM [facility] Blood Venous blood specimen / Unknown Venipuncture / Unknown 04/05/2024 6:56 AM EST 04/05/2024 10:21 AM EST us Marily Gordillo MD LAB BLOOD ORDERABLES Final Resul t [facility] [address] [place] [address], * (ABNORMAL) Complete blood count (04/05/2024 6:56 AM EST) WBC 9.2 4.8 - 10.8 K/mcL LAB HEMETOLOGY METHOD 04/05/2024 10:42 AM [facility] RBC 2.50(L) 3.80 - 4.80 M/mcL LAB HEMETOLOGY METHOD 04/05/2024 10:42 AM [facility] Hemoglobin 6.8(L) 11.5 - 16.0 g/dL LAB HEMETOLOGY METHOD 04/05/2024 10:42 AM [facility] Hematocrit 24.8(L) 35.0 - 47.0 % LAB HEMETOLOGY METHOD 04/05/2024 10:42 AM [facility] MCV 99.6(H) 79.0 - 98.0 FL LAB HEMETOLOGY METHOD 04/05/2024 10:42 AM [facility] MCH 27.3 27.0 - 32.0 pcg LAB HEMETOLOGY METHOD 04/05/2024 10:42 AM [facility] MCHC 27.4(L) 32.0 - 37.0 g/dL LAB HEMETOLOGY METHOD 04/05/2024 10:42 AM EST [facility] RDW 16.7(H) 11.0 - 15.0 % LAB HEMETOLOGY METHOD 04/05/2024 10:42 AM [facility] Platelets 332 130 - 400 K/mcL LAB HEMETOLOGY METHOD 04/05/2024 10:42 AM [facility] MPV 10.2 7.0 - 11.0 FL LAB HEMETOLOGY METHOD 04/05/2024 10:42 AM [facility] NRBC 0.0 <1.0 % LAB HEMETOLOGY METHOD 04/05/2024 10:42 AM [facility] NRBC Absolute 0.00 <0.10 K/mcL LAB HEMETOLOGY METHOD 04/05/2024 10:42 AM [facility] Blood Venous blood specimen / Unknown Venipuncture / Unknown 04/05/2024 6:56 AM EST 04/05/2024 10:26 AM EST us Marily Gordillo MD LAB BLOOD ORDERABLES Final Resul t [facility] [address] [place] [address], documented in this encounter Visit Diagnoses Diagnosis Chronic embolism and thrombosis of unspecified vein Acute kidney failure, unspecified (CMS/HCC) Acute kidney failure, unspecified documented in this encounter Care Teams Water Analyst Relationship Specialty Start Date End Date Marita Wetzel DO [address] [place] [address] PCP - General 01/09/23 documented as of this encounter
--- OUTSIDE RECORDS SUMMARY | 2024-07-28 15:54 | XMS_ITS | Encounter Summary ---
Author Organization [facility] Address [address] [place] [address] Phone Care Team Providers Care Applications System Analyst Name Role Phone Marita Wetzel DO Primary Care Provider Unava ilable Encounter Details Date Type Department Care Team (Late st Contact Info) Description 09/26/2022 Documentation Only [facility] [address] [place] [phone] Candace Adam PA Social History Tobacco Use [...] Only [facility], [facility] [address] [place] [phone] documented as of this encounter Visit Diagnoses Not on filedocumented in this encounter Care Teams Applications System Analyst Relationship Specialty Start Date End Date Marita Wetzel DO [address] [place] [address] PCP - General Family Medicine 11/14/22 documented as of this encounter
--- OUTSIDE RECORDS SUMMARY | 2024-07-28 15:54 | XMS_ITS | Encounter Summary ---
Author Organization [facility] Address [address] [place] [address] Care Team Providers Care Bed Laborer Name Role Phone Marita Wetzel Primary Care Provider +1- [phone] Encounter Details Date Type Department Care Team (Late st Contact Info) Description 04/23/2024 Lab Requisition [facility] - Main Lab [address] [place] [phone] Marily Gordillo MD [address] [place] [address] Chronic embolism and thrombosis of [...] LAB CHEMISTRY METHOD 04/26/2024 9:11 AM EST [facility] Potassium 3.4(L) 3.5 - 5.5 mmol/L LAB CHEMISTRY METHOD 04/26/2024 9:11 AM EST [facility] Chloride 109 96 - 110 mmol/L LAB CHEMISTRY METHOD 04/26/2024 9:11 AM [facility] CO2 27 21 - 32 mmol/L LAB CHEMISTRY METHOD 04/26/2024 9:11 AM [facility] Anion Gap 7 3 - 11 LAB CHEMISTRY METHOD 04/26/2024 9:11 AM [facility] Glucose 80 70 - 100 mg/dL LAB CHEMISTRY METHOD 04/26/2024 9:11 AM [facility] BUN 29(H) 5 - 25 mg/dL LAB CHEMISTRY METHOD 04/26/2024 9:11 AM [facility] Creatinine 3.36(H) 0.50 - 1.10 mg/dL LAB CHEMISTRY METHOD 04/26/2024 9:11 AM [facility] eGFR 15(L) >=60 mL/min/1. 73m2 LAB CHEMISTRY METHOD 04/26/2024 9:11 AM [facility] Comment:Calculation based on the??Chronic Kidney Disease Epidemiology Collaboration (CKD-EPI) equation refit??without adjustment for race. BUN/Creatinine Ratio 8.6 LAB CHEMISTRY METHOD 04/26/2024 9:11 AM [facility] Albumin 2.1(L) 3.2 - 5.0 g/dL LAB CHEMISTRY METHOD 04/26/2024 9:11 AM [facility] Calcium 8.7 8.5 - 10.5 mg/dL LAB CHEMISTRY METHOD 04/26/2024 9:11 AM [facility] Phosphorus 2.5 2.5 - 4.5 mg/dL LAB CHEMISTRY METHOD 04/26/2024 9:11 AM [facility] Blood Venous blood specimen / Unknown Venipuncture / Unknown 04/26/2024 6:18 AM EST 04/26/2024 8:28 AM EST Marily Gordillo MD LAB BLOOD ORDERABLES Final Resul t [facility] [address] [place] [address], documented in this encounter Visit Diagnoses Diagnosis Chronic embolism and thrombosis of unspecified vein Acute kidney failure, unspecified (CMS/HCC) Acute kidney failure, unspecified documented in this encounter Care Teams Bed Laborer Relationship Specialty Start Date End Date Marita Wetzel DO [address] [place] [address] PCP - General 01/09/23 documented as of this encounter
--- OUTSIDE RECORDS SUMMARY | 2024-07-28 15:54 | XMS_ITS | Encounter Summary ---
Author Organization [facility] Address [address] [place] [address] Care Team Providers Care Car Rental Clerk Name Role Phone Marita Wetzel Primary Care Provider +1- [phone] Encounter Details Date Type Department Care Team (Late st Contact Info) Description 04/17/2024 Lab Requisition [facility] - Main Lab 299 [facility] [place] [place] [phone] Marily Gordillo MD [address] [place] [phone] Chronic embolism and thrombosis of unspecified vein; [...] performed at [facility], [address], [place], [place] ??[address] ? [phone] Ashtyn Leigh MD, PhD - Elastic Attacher Coverstitch Blood Venous blood specimen / Unknown Venipuncture / Unknown 04/19/2024 6:21 AM EST 04/19/2024 8:33 AM EST us Marily Gordillo MD LAB BLOOD ORDERABLES Final Resul t [place] [address] * (ABNORMAL) Renal function panel (04/19/2024 6:21 AM EST) Sodium 144 133 - 145 mmol/L LAB CHEMISTRY METHOD 04/19/2024 9:42 AM [facility] Potassium 3.3(L) 3.5 - 5.5 mmol/L LAB CHEMISTRY METHOD 04/19/2024 9:42 AM [facility] Chloride 114(H) 96 - 110 mmol/L LAB CHEMISTRY METHOD 04/19/2024 9:42 AM [facility] CO2 22 21 - 32 mmol/L LAB CHEMISTRY METHOD 04/19/2024 9:42 AM [facility] Anion Gap 8 3 - 11 LAB CHEMISTRY METHOD 04/19/2024 9:42 AM [facility] Glucose 177(H) 70 - 100 mg/dL LAB CHEMISTRY METHOD 04/19/2024 9:42 AM [facility] BUN 42(H) 5 - 25 mg/dL LAB CHEMISTRY METHOD 04/19/2024 9:42 AM [facility] Creatinine 3.65(H) 0.50 - 1.10 mg/dL LAB CHEMISTRY METHOD 04/19/2024 9:42 AM [facility] eGFR 13(L) >=60 mL/min/1. 73m2 LAB CHEMISTRY METHOD 04/19/2024 9:42 AM [facility] Comment:Calculation based on the??Chronic Kidney Disease Epidemiology Collaboration (CKD-EPI) equation refit??without adjustment for race. BUN/Creatinine Ratio 11.5 LAB CHEMISTRY METHOD 04/19/2024 9:42 AM [facility] Albumin 2.0(L) 3.2 - 5.0 g/dL LAB CHEMISTRY METHOD 04/19/2024 9:42 AM EST [facility] Calcium 8.5 8.5 - 10.5 mg/dL LAB CHEMISTRY METHOD 04/19/2024 9:42 AM [facility] Phosphorus 2.6 2.5 - 4.5 mg/dL LAB CHEMISTRY METHOD 04/19/2024 9:42 AM [facility] Blood Venous blood specimen / Unknown Venipuncture / Unknown 04/19/2024 6:21 AM EST 04/19/2024 8:33 AM EST Marily Gordillo MD LAB BLOOD ORDERABLES Final Resul t [facility] [address] [place] [address], * (ABNORMAL) Complete blood count (04/19/2024 6:21 AM EST) WBC 12.0(H) 4.8 - 10.8 K/mcL LAB HEMETOLOGY METHOD 04/19/2024 9:26 AM [facility] RBC 2.80(L) 3.80 - 4.80 M/mcL LAB HEMETOLOGY METHOD 04/19/2024 9:26 AM [facility] Hemoglobin 7.6(L) 11.5 - 16.0 g/dL LAB HEMETOLOGY METHOD 04/19/2024 9:26 AM [facility] Hematocrit 27.3(L) 35.0 - 47.0 % LAB HEMETOLOGY METHOD 04/19/2024 9:26 AM [facility] MCV 98.2(H) 79.0 - 98.0 FL LAB HEMETOLOGY METHOD 04/19/2024 9:26 AM [facility] MCH 27.3 27.0 - 32.0 pcg LAB HEMETOLOGY METHOD 04/19/2024 9:26 AM EST [facility] MCHC 27.8(L) 32.0 - 37.0 g/dL LAB HEMETOLOGY METHOD 04/19/2024 9:26 AM [facility] RDW 16.6(H) 11.0 - 15.0 % LAB HEMETOLOGY METHOD 04/19/2024 9:26 AM [facility] Platelets 230 130 - 400 K/mcL LAB HEMETOLOGY METHOD 04/19/2024 9:26 AM [facility] MPV 10.9 7.0 - 11.0 FL LAB HEMETOLOGY METHOD 04/19/2024 9:26 AM [facility] NRBC 0.0 <1.0 % LAB HEMETOLOGY METHOD 04/19/2024 9:26 AM [facility] NRBC Absolute 0.00 <0.10 K/mcL LAB HEMETOLOGY METHOD 04/19/2024 9:26 AM [facility] Blood Venous blood specimen / Unknown Venipuncture / Unknown 04/19/2024 6:21 AM EST 04/19/2024 8:33 AM EST us Marily Godrillo MD LAB BLOOD ORDERABLES Final Resul t [facility] [address] [place] [address], documented in this encounter Visit Diagnoses Diagnosis Chronic embolism and thrombosis of unspecified vein Acute kidney failure, unspecified (CMS/HCC) Acute kidney failure, unspecified documented in this encounter Care Teams Car Rental Clerk Relationship Specialty Start Date End Date Marita Wetzel DO [address] [place] [address] PCP - General 01/09/23 documented as of this encounter
--- OUTSIDE RECORDS SUMMARY | 2024-07-28 15:54 | XMS_ITS | Encounter Summary ---
Author Organization [facility] Address [address] [place] [address] Care Team Providers Care Cylinder Die Machine Operator Name Role Phone Mary JaneMarita yousif Primary Care Provider +1- [phone] Encounter Details Date Type Department Care Team (Late st Contact Info) Description 03/05/[address] [facility] - Main Lab [address] [facility] [place] [address] Catalina Burr MD [address] [place] [address] Chronic embolism and thrombosis of unspecified vein; [...] developed and the performance characteristics determined by [facility]. This confirmation testing has not been cleared or approved by the FDA. The laboratory is regulated under CLIA as qualified to perform high-complexity testing. This test is used for patient testing purposes. It should not be regarded as investigational or for research. Test performed at [facility], [address], [place], [place] ??[address] ? [phone] Ashtyn Leigh MD, PhD - Boat Loader Blood Venous blood specimen / Unknown Venipuncture / Unknown 03/08/2024 6:29 AM EST 03/08/2024 7:46 AM EST us Catalina Burr MD LAB BLOOD ORDERABLES Final Resul t [facility] [address] [place] [address] * (ABNORMAL) Renal function panel (03/08/2024 6:29 AM EST) Sodium 139 133 - 145 mmol/L LAB CHEMISTRY METHOD 03/08/2024 8:58 AM [facility] Potassium 4.5 3.5 - 5.5 mmol/L LAB CHEMISTRY METHOD 03/08/2024 8:58 AM [facility] Chloride 108 96 - 110 mmol/L LAB CHEMISTRY METHOD 03/08/2024 8:58 AM [facility] CO2 20(L) 21 - 32 mmol/L LAB CHEMISTRY METHOD 03/08/2024 8:58 AM [facility] Anion Gap 11 3 - 11 LAB CHEMISTRY METHOD 03/08/2024 8:58 AM [facility] Glucose 93 70 - 100 mg/dL LAB CHEMISTRY METHOD 03/08/2024 8:58 AM [facility] BUN 35(H) 5 - 25 mg/dL LAB CHEMISTRY METHOD 03/08/2024 8:58 AM [facility] Creatinine 3.99(H) 0.50 - 1.10 mg/dL LAB CHEMISTRY METHOD 03/08/2024 8:58 AM [facility] eGFR 12(L) >=60 mL/min/1. 73m2 LAB CHEMISTRY METHOD 03/08/2024 8:58 AM [facility] Comment:Calculation based on the??Chronic Kidney Disease Epidemiology Collaboration (CKD-EPI) equation refit??without adjustment for race. BUN/Creatinine Ratio 8.8 LAB CHEMISTRY METHOD 03/08/2024 8:58 AM EST [facility] Albumin 2.3(L) 3.2 - 5.0 g/dL LAB CHEMISTRY METHOD 03/08/2024 8:58 AM [facility] Calcium 9.0 8.5 - 10.5 mg/dL LAB CHEMISTRY METHOD 03/08/2024 8:58 AM [facility] Phosphorus 3.2 2.5 - 4.5 mg/dL LAB CHEMISTRY METHOD 03/08/2024 8:58 AM [facility] Blood Venous blood specimen / Unknown Venipuncture / Unknown 03/08/2024 6:29 AM EST 03/08/2024 7:46 AM EST us Catalina Burr MD LAB BLOOD ORDERABLES Final Resul t [facility] [address] [place] [address], [place] [phone] * (ABNORMAL) Complete blood count (03/08/2024 6:29 AM EST) WBC 9.8 4.8 - 10.8 K/mcL LAB HEMETOLOGY METHOD 03/08/2024 8:10 AM [facility] RBC 2.90(L) 3.80 - 4.80 M/mcL LAB HEMETOLOGY METHOD 03/08/2024 8:10 AM [facility] Hemoglobin 7.9(L) 11.5 - 16.0 g/dL LAB HEMETOLOGY METHOD 03/08/2024 8:10 AM [facility] Hematocrit 28.5(L) 35.0 - 47.0 % LAB HEMETOLOGY METHOD 03/08/2024 8:10 AM [facility] MCV 99.3(H) 79.0 - 98.0 FL LAB HEMETOLOGY METHOD 03/08/2024 8:10 AM EST [facility] MCH 27.5 27.0 - 32.0 pcg LAB HEMETOLOGY METHOD 03/08/2024 8:10 AM EST [facility] MCHC 27.7(L) 32.0 - 37.0 g/dL LAB HEMETOLOGY METHOD 03/08/2024 8:10 AM EST [facility] RDW 17.2(H) 11.0 - 15.0 % LAB HEMETOLOGY METHOD 03/08/2024 8:10 AM EST [facility] Platelets 299 130 - 400 K/mcL LAB HEMETOLOGY METHOD 03/08/2024 8:10 AM EST [facility] MPV 11.5(H) 7.0 - 11.0 FL LAB HEMETOLOGY METHOD 03/08/2024 8:10 AM EST [facility] NRBC 0.0 <1.0 % LAB HEMETOLOGY METHOD 03/08/2024 8:10 AM EST [facility] NRBC Absolute 0.00 <0.10 K/mcL LAB HEMETOLOGY METHOD 03/08/2024 8:10 AM [facility] Blood Venous blood specimen / Unknown Venipuncture / Unknown 03/08/2024 6:29 AM EST 03/08/2024 7:46 AM EST us Catalina Burr MD LAB BLOOD ORDERABLES Final Resul t [facility] [address] [place] [address], [place] [phone] documented in this encounter Visit Diagnoses Diagnosis Chronic embolism and thrombosis of unspecified vein Acute kidney failure, unspecified (CMS/HCC) Acute kidney failure, unspecified Type 2 diabetes mellitus without complications documented in this encounter Care Teams Cylinder Die Machine Operator Relationship Specialty Start Date End Date Marita Wetzel DO [address] [place] [address] PCP - General 01/09/23 documented as of this encounter
--- OUTSIDE RECORDS SUMMARY | 2024-07-28 15:54 | XMS_ITS | Encounter Summary ---
Author Organization [facility] Address [address] [place] [address] Care Team Providers Care Crime Prevention Worker Name Role Phone Marita Wetzel Primary Care Provider +1- [phone] Encounter Details Date Type Department Care Team (Late st Contact Info) Description 03/29/2024 Lab Requisition [facility] - Main Lab 299 [facility] [place] [address] Catalina Burr MD [address] [place] [address] End stage renal disease (CMS/HCC) Social History [...] and the performance characteristics determined by [facility]. This confirmation testing has not been cleared or approved by the FDA. The laboratory is regulated under CLIA as qualified to perform high-complexity testing. This test is used for patient testing purposes. It should not be regarded as investigational or for research. Test performed at [facility], [facility] [place] ? [phone] Ashtyn Leigh MD, PhD - Director Trial Blood Venous blood specimen / Unknown Venipuncture / Unknown 03/29/2024 6:53 AM EST 03/29/2024 8:32 AM EST us Catalina Burr MD LAB BLOOD ORDERABLES Final Resul [place] [address] * (ABNORMAL) Renal function panel (03/29/2024 6:53 AM EST) Sodium 140 133 - 145 mmol/L LAB CHEMISTRY METHOD 03/29/2024 10:07 AM [facility] Potassium 3.9 3.5 - 5.5 mmol/L LAB CHEMISTRY METHOD 03/29/2024 10:07 AM [facility] Chloride 109 96 - 110 mmol/L LAB CHEMISTRY METHOD 03/29/2024 10:07 AM [facility] CO2 20(L) 21 - 32 mmol/L LAB CHEMISTRY METHOD 03/29/2024 10:07 AM [facility] Anion Gap 11 3 - 11 LAB CHEMISTRY METHOD 03/29/2024 10:07 AM [facility] Glucose 146(H) 70 - 100 mg/dL LAB CHEMISTRY METHOD 03/29/2024 10:07 AM [facility] BUN 42(H) 5 - 25 mg/dL LAB CHEMISTRY METHOD 03/29/2024 10:07 AM [facility] Creatinine 3.47(H) 0.50 - 1.10 mg/dL LAB CHEMISTRY METHOD 03/29/2024 10:07 AM [facility] eGFR 14(L) >=60 mL/min/1. 73m2 LAB CHEMISTRY METHOD 03/29/2024 10:07 AM [facility] Comment:Calculation based on the??Chronic Kidney Disease Epidemiology Collaboration (CKD-EPI) equation refit??without adjustment for race. BUN/Creatinine Ratio 12.1 LAB CHEMISTRY METHOD 03/29/2024 10:07 AM [facility] Albumin 2.0(L) 3.2 - 5.0 g/dL LAB CHEMISTRY METHOD 03/29/2024 10:07 AM [facility] Calcium 8.8 8.5 - 10.5 mg/dL LAB CHEMISTRY METHOD 03/29/2024 10:07 AM [facility] Phosphorus 2.5 2.5 - 4.5 mg/dL LAB CHEMISTRY METHOD 03/29/2024 10:07 AM [facility] Blood Venous blood specimen / Unknown Venipuncture / Unknown 03/29/2024 6:53 AM EST 03/29/2024 8:32 AM EST us Catalina Burr MD LAB BLOOD ORDERABLES Final Resul t [facility] LAB [address] [place] [address], * (ABNORMAL) Complete blood count (03/29/2024 6:53 AM EST) WBC 11.0(H) 4.8 - 10.8 K/mcL LAB HEMETOLOGY METHOD 03/29/2024 9:47 AM [facility] RBC 2.80(L) 3.80 - 4.80 M/mcL LAB HEMETOLOGY METHOD 03/29/2024 9:47 AM [facility] Hemoglobin 7.7(L) 11.5 - 16.0 g/dL LAB HEMETOLOGY METHOD 03/29/2024 9:47 AM [facility] Hematocrit 27.0(L) 35.0 - 47.0 % LAB HEMETOLOGY METHOD 03/29/2024 9:47 AM [facility] MCV 97.8 79.0 - 98.0 FL LAB HEMETOLOGY METHOD 03/29/2024 9:47 AM [facility] MCH 27.9 27.0 - 32.0 pcg LAB HEMETOLOGY METHOD 03/29/2024 9:47 AM [facility] MCHC 28.5(L) 32.0 - 37.0 g/dL LAB HEMETOLOGY METHOD 03/29/2024 9:47 AM EST [facility] LAB RDW 17.5(H) 11.0 - 15.0 % LAB HEMETOLOGY METHOD 03/29/2024 9:47 AM [facility] Platelets 301 130 - 400 K/mcL LAB HEMETOLOGY METHOD 03/29/2024 9:47 AM [facility] MPV 10.3 7.0 - 11.0 FL LAB HEMETOLOGY METHOD 03/29/2024 9:47 AM EST [facility] LAB NRBC 0.0 <1.0 % LAB HEMETOLOGY METHOD 03/29/2024 9:47 AM [facility] NRBC Absolute 0.00 <0.10 K/mcL LAB HEMETOLOGY METHOD 03/29/2024 9:47 AM [facility] Blood Venous blood specimen / Unknown Venipuncture / Unknown 03/29/2024 6:53 AM EST 03/29/2024 8:32 AM EST us Catalina Burr MD LAB BLOOD ORDERABLES Final Resul t [facility] LAB [address] [place] [address], documented in this encounter Visit Diagnoses Diagnosis End stage renal disease (CMS/[facility]) End stage renal disease documented in this encounter Care Teams Crime Prevention Worker Relationship Specialty Start Date End Date Marita Wetzel DO [address] [place] [address] PCP - General 01/09/23 documented as of this encounter
--- OUTSIDE RECORDS SUMMARY | 2024-07-28 15:54 | XMS_ITS | Encounter Summary ---
Author Organization [facility] Address [address] [place] [address] Care Team Providers Care Local City Driver Name Role Phone Mary JaneMarita yousif Primary Care Provider +1- [phone] Encounter Details Date Type Department Care Team (Late st Contact Info) Description 03/19/2024 Lab Requisition [facility] - Main Lab 299 [facility] [place] [address] Catalina Burr MD [address] [place] [address] Chronic embolism and thrombosis of unspecified vein; [...] performance characteristics determined by [facility]. This confirmation testing has not been cleared or approved by the FDA. The laboratory is regulated under CLIA as qualified to perform high-complexity testing. This test is used for patient testing purposes. It should not be regarded as investigational or for research. Test performed at [facility], [address], [place], [place] ??[address] ? [phone] Ashtyn Leigh MD, PhD - Hydro Electric Station Operator Blood Venous blood specimen / Unknown Venipuncture / Unknown 03/22/2024 6:50 AM EST 03/22/2024 8:05 AM EST us Catalina Burr MD LAB BLOOD ORDERABLES Final Resul t [facility] [address] [place] [address] * (ABNORMAL) Renal function panel (03/22/2024 6:50 AM EST) Sodium 138 133 - 145 mmol/L LAB CHEMISTRY METHOD 03/22/2024 8:55 AM [facility] Potassium 4.6 3.5 - 5.5 mmol/L LAB CHEMISTRY METHOD 03/22/2024 8:55 AM [facility] Chloride 107 96 - 110 mmol/L LAB CHEMISTRY METHOD 03/22/2024 8:55 AM [facility] CO2 20(L) 21 - 32 mmol/L LAB CHEMISTRY METHOD 03/22/2024 8:55 AM [facility] Anion Gap 11 3 - 11 LAB CHEMISTRY METHOD 03/22/2024 8:55 AM [facility] Glucose 158(H) 70 - 100 mg/dL LAB CHEMISTRY METHOD 03/22/2024 8:55 AM [facility] BUN 51(H) 5 - 25 mg/dL LAB CHEMISTRY METHOD 03/22/2024 8:55 AM [facility] Creatinine 4.91(H) 0.50 - 1.10 mg/dL LAB CHEMISTRY METHOD 03/22/2024 8:55 AM [facility] eGFR 9(L) >=60 mL/min/1. 73m2 LAB CHEMISTRY METHOD 03/22/2024 8:55 AM [facility] Comment:Calculation based on the??Chronic Kidney Disease Epidemiology Collaboration (CKD-EPI) equation refit??without adjustment for race. BUN/Creatinine Ratio 10.4 LAB CHEMISTRY METHOD 03/22/2024 8:55 AM EST [facility] Albumin 2.1(L) 3.2 - 5.0 g/dL LAB CHEMISTRY METHOD 03/22/2024 8:55 AM [facility] Calcium 9.0 8.5 - 10.5 mg/dL LAB CHEMISTRY METHOD 03/22/2024 8:55 AM [facility] Phosphorus 3.4 2.5 - 4.5 mg/dL LAB CHEMISTRY METHOD 03/22/2024 8:55 AM [facility] Blood Venous blood specimen / Unknown Venipuncture / Unknown 03/22/2024 6:50 AM EST 03/22/2024 8:05 AM EST us Catalina Burr MD LAB BLOOD ORDERABLES Final Resul t [facility] LAB [address] [place] [address], [place] [phone] * (ABNORMAL) Complete blood count (03/22/2024 6:50 AM EST) WBC 10.4 4.8 - 10.8 K/mcL LAB HEMETOLOGY METHOD 03/22/2024 8:32 AM [facility] RBC 2.80(L) 3.80 - 4.80 M/mcL LAB HEMETOLOGY METHOD 03/22/2024 8:32 AM [facility] Hemoglobin 7.9(L) 11.5 - 16.0 g/dL LAB HEMETOLOGY METHOD 03/22/2024 8:32 AM [facility] Hematocrit 27.8(L) 35.0 - 47.0 % LAB HEMETOLOGY METHOD 03/22/2024 8:32 AM [facility] MCV 98.6(H) 79.0 - 98.0 FL LAB HEMETOLOGY METHOD 03/22/2024 8:32 AM EST [facility] LAB MCH 28.0 27.0 - 32.0 pcg LAB HEMETOLOGY METHOD 03/22/2024 8:32 AM EST [facility] LAB MCHC 28.4(L) 32.0 - 37.0 g/dL LAB HEMETOLOGY METHOD 03/22/2024 8:32 AM EST [facility] LAB RDW 17.8(H) 11.0 - 15.0 % LAB HEMETOLOGY METHOD 03/22/2024 8:32 AM EST [facility] Platelets 218 130 - 400 K/mcL LAB HEMETOLOGY METHOD 03/22/2024 8:32 AM [facility] MPV 10.7 7.0 - 11.0 FL LAB HEMETOLOGY METHOD 03/22/2024 8:32 AM EST [facility] LAB NRBC 0.0 <1.0 % LAB HEMETOLOGY METHOD 03/22/2024 8:32 AM [facility] NRBC Absolute 0.00 <0.10 K/mcL LAB HEMETOLOGY METHOD 03/22/2024 8:32 AM [facility] Blood Venous blood specimen / Unknown Venipuncture / Unknown 03/22/2024 6:50 AM EST 03/22/2024 8:05 AM EST us Catalina Burr MD LAB BLOOD ORDERABLES Final Resul t [facility] [address] [place] [address], [place] [phone] documented in this encounter Visit Diagnoses Diagnosis Chronic embolism and thrombosis of unspecified vein Acute kidney failure, unspecified (CMS/HCC) Acute kidney failure, unspecified Type 2 diabetes mellitus without complications documented in this encounter Care Teams Local City Driver Relationship Specialty Start Date End Date Marita Wetzel DO [address] [place] [address] PCP - General 01/09/23 documented as of this encounter
--- OUTSIDE RECORDS SUMMARY | 2024-07-28 15:54 | XMS_ITS | Encounter Summary ---
Author Organization [facility] Address [address] [place] [address] Phone Care Team Providers Care Marine Propulsion Technician Name Role Phone Marita Wetzel DO Primary Care Provider Unava ilable Encounter Details Date Type Department Care Team (Late st Contact Info) Description 06/23/2023 Documentation Only [facility] [address] [place] [phone] [place] [address] [place] [phone] Social History Tobacco Use Types Packs/Day Years [...] [facility] - [facility] [address] [place] [phone] documented as of this encounter Visit Diagnoses Not on filedocumented in this encounter Care Teams Marine Propulsion Technician Relationship Specialty Start Date End Date Marita Wetzel DO [address] [place] [address] PCP - General Family Medicine 11/14/22 documented as of this encounter
--- OUTSIDE RECORDS SUMMARY | 2024-07-28 15:54 | XMS_ITS | Encounter Summary ---
Author Organization [facility] Address [address] [place] [address] Care Team Providers Care Electronic Die Maker Name Role Phone Marita Wetzel Primary Care Provider +1- [phone] Encounter Details Date Type Department Care Team (Late st Contact Info) Description 04/20/2024 Lab Requisition [facility] - Main Lab 299 [place] [phone] Marily Gordillo MD [address] [place] [address] Chronic kidney disease, unspecified; Anemia, [...] LAB CHEMISTRY METHOD 04/22/2024 11:50 AM EST [facility] Potassium 3.5 3.5 - [...] Resul t [facility] 299 [place] [address], * (ABNORMAL) Complete blood count (04/22/2024 7:09 [...] LAB HEMETOLOGY METHOD 04/22/2024 10:44 AM EST [facility] MCHC 28.2(L) 32.0 - [...] Resul t [facility] [address] [place] [address], documented in this encounter Visit Diagnoses Diagnosis Chronic kidney disease, unspecified Anemia, unspecified documented in this encounter Care Teams Electronic Die Maker Relationship Specialty Start Date End Date Marita Wetezl DO [address] [place] [address] PCP - General 01/09/23 documented as of this encounter
--- OUTSIDE RECORDS SUMMARY | 2024-07-28 15:54 | XMS_ITS | Encounter Summary ---
Author Organization [facility] Address [address] [place] [address] Care Team Providers Care Coding Machine Operator Name Role Phone Marita Wetzel Primary Care Provider +1- [phone] Encounter Details Date Type Department Care Team (Late st Contact Info) Description 03/12/2024 Lab Requisition [facility] - Main Lab 299 [facility] [place] [address] Catalina Burr MD [address] [place] [address] Chronic embolism and thrombosis of unspecified vein; [...] - 20.0 ng/mL 03/17/2024 1:34 PM EST [facility] Comment: Additional Information: Toxic Level ?> [...] developed and the performance characteristics determined by [facility]. This confirmation testing has not been cleared or approved by the FDA. The laboratory is regulated under CLIA as qualified to perform high-complexity testing. This test is used for patient testing purposes. It should not be regarded as investigational or for research. Test performed at [facility], [facility] [place] ??[address] ? [phone] Ashtyn Leigh MD, PhD - Thiokol Operator Blood Venous blood specimen / Unknown Venipuncture / Unknown 03/15/2024 8:20 AM EST 03/15/2024 10:20 AM EST us Catalina Burr MD LAB BLOOD ORDERABLES Final Resul t [place] [address] * (ABNORMAL) Renal function panel (03/15/2024 8:20 AM EST) Sodium 139 133 - 145 mmol/L LAB CHEMISTRY METHOD 03/15/2024 11:[address] [facility] Potassium 5.6(H) 3.5 - 5.5 mmol/L LAB CHEMISTRY METHOD 03/15/2024 11:[address] [facility] Chloride 108 96 - 110 mmol/L LAB CHEMISTRY METHOD 03/15/2024 11:[address] [facility] CO2 19(L) 21 - 32 mmol/L LAB CHEMISTRY METHOD 03/15/2024 11:[address] [facility] Anion Gap 12(H) 3 - 11 LAB CHEMISTRY METHOD 03/15/2024 11:[address] [facility] Glucose 105(H) 70 - 100 mg/dL LAB CHEMISTRY METHOD 03/15/2024 11:[address] [facility] BUN 36(H) 5 - 25 mg/dL LAB CHEMISTRY METHOD 03/15/2024 11:[address] [facility] Creatinine 3.97(H) 0.50 - 1.10 mg/dL LAB CHEMISTRY METHOD 03/15/2024 11:[address] [facility] eGFR 12(L) >=60 mL/min/1. 73m2 LAB CHEMISTRY METHOD 03/15/2024 11:[address] [facility] Comment:Calculation based on the??Chronic Kidney Disease Epidemiology Collaboration (CKD-EPI) equation refit??without adjustment for race. BUN/Creatinine Ratio 9.1 LAB CHEMISTRY METHOD 03/15/2024 11:[address] [facility] Albumin 2.6(L) 3.2 - 5.0 g/dL LAB CHEMISTRY METHOD 03/15/2024 11:31 AM EST [facility] Calcium 9.5 8.5 - 10.5 mg/dL LAB CHEMISTRY METHOD 03/15/2024 11:31 AM EST [facility] Phosphorus 4.0 2.5 - 4.5 mg/dL LAB CHEMISTRY METHOD 03/15/2024 11:31 AM EST [facility] Blood Venous blood specimen / Unknown Venipuncture / Unknown 03/15/2024 8:20 AM EST 03/15/2024 10:16 AM EST us Catalina Burr MD LAB BLOOD ORDERABLES Final Resul t [facility] [address] [place] [address], documented in this encounter Visit Diagnoses Diagnosis Chronic embolism and thrombosis of unspecified vein Acute kidney failure, unspecified (CMS/HCC) Acute kidney failure, unspecified Type 2 diabetes mellitus without complications documented in this encounter Care Teams Coding Machine Operator Relationship Specialty Start Date End Date Marita Wetzel DO [address] [place] [address] PCP - General 01/09/23 documented as of this encounter
--- OUTSIDE RECORDS SUMMARY | 2024-07-28 15:54 | XMS_ITS | Encounter Summary ---
Author Organization [facility] Address [address] [place] [address] Phone Care Team Providers Care Case Folder Name Role Phone Marita Wetzel DO Primary Care Provider Unava ilable Encounter Details Date Type Department Care Team (Late st Contact Info) Description 11/11/2022 Documentation Only [facility] [address] [place] [phone] Pauline Aguayo [address] [place] [phone] Social History Tobacco Use Types Packs/Day Years [...] Only [facility] V[facility] Access Center [address] [phone] documented as of this encounter Visit Diagnoses Not on filedocumented in this encounter Care Teams Case Folder Relationship Specialty Start Date End Date Marita Wetzel DO [address] [place] [address] PCP - General Family Medicine 11/14/22 documented as of this encounter
--- OUTSIDE RECORDS SUMMARY | 2024-07-28 15:54 | XMS_ITS | Encounter Summary ---
Author Organization [facility] Address [address] [place] [address] Care Team Providers Care County Assessor Name Role Phone Mary JaneMarita yousif Primary Care Provider +1- [phone] Encounter Details Date Type Department Care Team (Late st Contact Info) Description 03/01/[address] [facility] - Main Lab 299 [facility] [place] [address] Catalina Burr MD [address] [place] [address] End stage renal disease (CMS/HCC); Type 2 [...] LAB CHEMISTRY METHOD 03/01/2024 11:[address] [facility] Blood Venous blood specimen / Unknown Venipuncture / Unknown 03/01/2024 6:56 AM EST 03/01/2024 9:07 AM EST Catalina Burr MD LAB BLOOD ORDERABLES Final Resul t Performing Organization Address City/[facility]/ZIP Co de Phone Number [facility] [address] [place] [address], [place] [phone] * (ABNORMAL) Iron (03/01/2024 6:56 AM EST) Pathologist [facility] Iron 29(L) 40 - 150 mcg/dL LAB CHEMISTRY METHOD 03/01/2024 11:[address] [facility] Blood Venous blood specimen / Unknown Venipuncture / Unknown 03/01/2024 6:56 AM EST 03/01/2024 9:07 AM EST Catalina Burr MD LAB BLOOD ORDERABLES Final Resul t [facility] [address] [place] [address], [place] [phone] * Tacrolimus level (03/01/2024 6:56 AM EST) [...] developed and the performance characteristics determined by [facility]. This confirmation testing has not been cleared or approved by the FDA. The laboratory is regulated under CLIA as qualified to perform high-complexity testing. This test is used for patient testing purposes. It should not be regarded as investigational or for research. Test performed at [facility], [facility] [place], [place] ??[address] ? [phone] Ashtyn Leigh MD, PhD - [place] Blood Venous blood specimen / Unknown Venipuncture / Unknown 03/01/2024 6:56 AM EST 03/01/2024 9:07 AM EST us Catalina Burr MD LAB BLOOD ORDERABLES Final Resul t [place] [address] * (ABNORMAL) Renal function panel (03/01/2024 6:56 AM EST) Sodium 140 133 - 145 mmol/L LAB CHEMISTRY METHOD 03/01/2024 11:04 AM [facility] Potassium 3.4(L) 3.5 - 5.5 mmol/L LAB CHEMISTRY METHOD 03/01/2024 11:04 AM [facility] Chloride 107 96 - 110 mmol/L LAB CHEMISTRY METHOD 03/01/2024 11:04 AM [facility] CO2 24 21 - 32 mmol/L LAB CHEMISTRY METHOD 03/01/2024 11:04 AM [facility] Anion Gap 9 3 - 11 LAB CHEMISTRY METHOD 03/01/2024 11:04 AM [facility] Glucose 107(H) 70 - 100 mg/dL LAB CHEMISTRY METHOD 03/01/2024 11:04 AM [facility] BUN 26(H) 5 - 25 mg/dL LAB CHEMISTRY METHOD 03/01/2024 11:04 AM [facility] Creatinine 2.88(H) 0.50 - 1.10 mg/dL LAB CHEMISTRY METHOD 03/01/2024 11:04 AM [facility] eGFR 18(L) >=60 mL/min/1. 73m2 LAB CHEMISTRY METHOD 03/01/2024 11:04 AM [facility] Comment:Calculation based on the??Chronic Kidney Disease Epidemiology Collaboration (CKD-EPI) equation refit??without adjustment for race. BUN/Creatinine Ratio 9.0 LAB CHEMISTRY METHOD 03/01/2024 11:04 AM [facility] Albumin 2.3(L) 3.2 - 5.0 g/dL LAB CHEMISTRY METHOD 03/01/2024 11:04 AM [facility] Calcium 8.9 8.5 - 10.5 mg/dL LAB CHEMISTRY METHOD 03/01/2024 11:04 AM [facility] Phosphorus 1.9(L) 2.5 - 4.5 mg/dL LAB CHEMISTRY METHOD 03/01/2024 11:04 AM [facility] Blood Venous blood specimen / Unknown Venipuncture / Unknown 03/01/2024 6:56 AM EST 03/01/2024 9:07 AM EST us Catalina Burr MD LAB BLOOD ORDERABLES Final Resul t [facility] [address] [place] [address], * (ABNORMAL) Complete blood count (03/01/2024 6:56 AM EST) WBC 10.2 4.8 - 10.8 K/mcL LAB HEMETOLOGY METHOD 03/01/2024 10:46 AM [facility] RBC 2.70(L) 3.80 - 4.80 M/mcL LAB HEMETOLOGY METHOD 03/01/2024 10:46 AM [facility] Hemoglobin 7.5(L) 11.5 - 16.0 g/dL LAB HEMETOLOGY METHOD 03/01/2024 10:46 AM [facility] Hematocrit 26.1(L) 35.0 - 47.0 % LAB HEMETOLOGY METHOD 03/01/2024 10:46 AM [facility] MCV 97.8 79.0 - 98.0 FL LAB HEMETOLOGY METHOD 03/01/2024 10:46 AM [facility] MCH 28.1 27.0 - 32.0 pcg LAB HEMETOLOGY METHOD 03/01/2024 10:46 AM [facility] MCHC 28.7(L) 32.0 - 37.0 g/dL LAB HEMETOLOGY METHOD 03/01/2024 10:[address] [facility] RDW 16.7(H) 11.0 - 15.0 % LAB HEMETOLOGY METHOD 03/01/2024 10:[address] [facility] Platelets 235 130 - 400 K/mcL LAB HEMETOLOGY METHOD 03/01/2024 10:46 AM [facility] MPV 10.8 7.0 - 11.0 FL LAB HEMETOLOGY METHOD 03/01/2024 10:[address] [facility] NRBC 0.0 <1.0 % LAB HEMETOLOGY METHOD 03/01/2024 10:46 AM [facility] NRBC Absolute 0.00 <0.10 K/mcL LAB HEMETOLOGY METHOD 03/01/2024 10:46 AM [facility] Blood Venous blood specimen / Unknown Venipuncture / Unknown 03/01/2024 6:56 AM EST 03/01/2024 9:07 AM EST us Catalina Burr MD LAB BLOOD ORDERABLES Final Resul t [facility] [address] [place] [address], documented in this encounter Visit Diagnoses Diagnosis End stage renal disease (CMS/[facility]) End stage renal disease Type 2 diabetes mellitus without complications documented in this encounter Care Teams County Assessor Relationship Specialty Start Date End Date Marita Wetzel DO [address] [place] [address] PCP - General 01/09/23 documented as of this encounter
--- OUTSIDE RECORDS SUMMARY | 2024-07-28 15:54 | XMS_ITS | Encounter Summary ---
Author Organization [facility] Address [address] [place] [address] Phone Care Team Providers Care Vp Integrity Name Role Phone Marita Wetzel DO Primary Care Provider Unava ilable Encounter Details Date Type Department Care Team (Late st Contact Info) Description 04/17/2024 Documentation Only [facility] [address] [place] [phone] [place] [address] [place] [phone] Social History Tobacco Use Types Packs/Day Years [...] Only [facility] [address] [phone] documented as of this encounter Visit Diagnoses Not on filedocumented in this encounter Care Teams Vp Integrity Relationship Specialty Start Date End Date Marita Wetzel DO [address] [place] [id number] PCP - General Family Medicine 11/14/22 documented as of this encounter
--- OUTSIDE RECORDS SUMMARY | 2024-07-28 15:54 | XMS_ITS | Encounter Summary ---
Author Organization [facility] Address [address] [place] [address] Phone Care Team Providers Care Public Health Technologist Name Role Phone Marita Wetzel DO Primary Care Provider Unava ilable Encounter Details Date Type Department Care Team (Late st Contact Info) Description 01/01/2024 Documentation Only [facility] [address] [place] [phone] [place] [address] [place] [phone] Social History Tobacco Use Types Packs/Day Years [...] [facility] [address] [place] [phone] documented as of this encounter Visit Diagnoses Not on filedocumented in this encounter Care Teams Public Health Technologist Relationship Specialty Start Date End Date aMrita Wetzel DO [address] [place] [address] PCP - General Family Medicine 11/14/22 documented as of this encounter
--- OUTSIDE RECORDS SUMMARY | 2024-07-28 15:54 | XMS_ITS | Clinical Summary ---
Author Organization [address] Address [address] [place] [address] Phone Care Team Providers Care Branch Rental Manager Name Role Phone Marita Wetzel Primary Care Provider +1- [phone] Encounters Date Type Department Care Team Description 05/31/2024 Lab Requisition [facility] Lab [address] [place] [phone] Marily Gordillo MD Acute kidney failure, unspecified (CMS/HCC); Chronic embolism and thrombosis of unspecified vein; Anemia, unspecified 05/30/2024 Lab Requisition [facility] Lab [address] [place] [phone] Marily Gordillo MD Chronic embolism and thrombosis of unspecified vein; Acute kidney failure, unspecified (CMS/HCC) 05/21/2024 Lab Requisition [facility] Lab [address] [place] [phone] Marily Grodillo MD Chronic embolism and thrombosis of unspecified vein; Acute kidney failure, unspecified (CMS/HCC) 05/15/2024 Lab Requisition [facility] Lab [address] [place] [phone] Marily Gordillo MD Chronic embolism and thrombosis of unspecified vein; Acute kidney failure, unspecified (CMS/HCC) 05/12/2024 Lab Requisition [facility] Lab [address] [place] [phone] Marily Gordillo MD Chronic kidney disease, unspecified; Anemia, unspecified 05/07/2024 Lab Requisition [facility] Lab [address] [place] [phone] Marily Gordillo MD Chronic embolism and thrombosis of unspecified vein; Acute kidney failure, unspecified (CMS/HCC) 2024 Lab Requisition [facility] Lab [address] [place] [phone] Marily Gordillo MD Chronic kidney disease, unspecified; Anemia, unspecified 04/30/2024 Lab Requisition [facility] Lab [address] [place] [phone] Marily Gordillo MD Chronic embolism and thrombosis of unspecified vein; Acute kidney failure, unspecified (CMS/HCC) 04/30/2024 Lab Requisition [facility] Lab [address] [place] [phone] Marily Gordlilo MD Anemia, unspecified; Chronic embolism and thrombosis of unspecified vein; Acute kidney failure, unspecified (CMS/HCC) 04/29/2024 Lab Requisition [facility] Lab [address] [place] [phone] Marily Gordillo MD Chronic embolism and thrombosis [...] [place], [address], [place], [place] ??[address] ? [phone] Ashtyn Leigh MD, PhD - Employment Officer Blood Venous blood specimen / Unknown Venipuncture / Unknown 05/10/2024 5:50 AM EST 05/10/2024 9:58 AM EST us Marily Gordillo MD LAB BLOOD ORDERABLES Final Resul [place] [address] * (ABNORMAL) Renal function panel (05/10/2024 5:50 AM EST) Only the most recent of2 resultswithin the time period is included. Sodium 135 133 - 145 mmol/L LAB CHEMISTRY METHOD 05/10/2024 11:45 AM [facility] Potassium 3.8 3.5 - 5.5 mmol/L LAB CHEMISTRY METHOD 05/10/2024 11:45 AM [facility] Chloride 96 96 - 110 mmol/L LAB CHEMISTRY METHOD 05/10/2024 11:45 AM [facility] CO2 28 21 - 32 mmol/L LAB CHEMISTRY METHOD 05/10/2024 11:45 AM [facility] Anion Gap 11 3 - 11 LAB CHEMISTRY METHOD 05/10/2024 11:45 AM [facility] Glucose 215(H) 70 - 100 mg/dL LAB CHEMISTRY METHOD 05/10/2024 11:45 AM [facility] BUN 45(H) 5 - 25 mg/dL LAB CHEMISTRY METHOD 05/10/2024 11:45 AM [facility] Creatinine 3.47(H) 0.50 - 1.10 mg/dL LAB CHEMISTRY METHOD 05/10/2024 11:45 AM [facility] eGFR 14(L) >=60 mL/min/1. 73m2 LAB CHEMISTRY METHOD 05/10/2024 11:45 AM [facility] Comment:Calculation based on the??Chronic Kidney Disease Epidemiology Collaboration (CKD-EPI) equation refit??without adjustment for race. BUN/Creatinine Ratio 13.0 LAB CHEMISTRY METHOD 05/10/2024 11:45 AM [facility] Albumin 1.7(L) 3.2 - 5.0 g/dL LAB CHEMISTRY METHOD 05/10/2024 11:45 AM EST [facility] Calcium 8.4(L) 8.5 - 10.5 mg/dL LAB CHEMISTRY METHOD 05/10/2024 11:45 AM EST [facility] Phosphorus 2.1(L) 2.5 - 4.5 mg/dL LAB CHEMISTRY METHOD 05/10/2024 11:45 AM EST [facility] Blood Venous blood specimen / Unknown Venipuncture / Unknown 05/10/2024 5:50 AM EST 05/10/2024 9:58 AM EST us Marily Gordillo MD LAB BLOOD ORDERABLES Final Resul t Performing Organization Address City/[facility]/ZIP Co de Phone Number [facility] [address] [place] [address], [place] [phone] * (ABNORMAL) Iron (05/03/2024 6:09 AM EST) Iron 35(L) 40 - 150 mcg/dL LAB CHEMISTRY METHOD 05/03/2024 10:59 AM EST [facility] Blood Venous blood specimen / Unknown Venipuncture / Unknown 05/03/2024 6:09 AM EST 05/03/2024 9:29 AM EST us Marily Gordillo MD LAB BLOOD ORDERABLES Final Resul t [facility] [address] [place] [address], [place] [phone] * (ABNORMAL) Ferritin (05/03/2024 6:09 AM EST) Ferritin 2,737(H) 8 - 252 ng/mL LAB CHEMISTRY METHOD 05/03/2024 10:59 AM EST [facility] Blood Venous blood specimen / Unknown Venipuncture / Unknown 05/03/2024 6:09 AM EST 05/03/2024 9:29 AM EST us Marily Gordillo MD LAB BLOOD ORDERABLES Final Resul t [facility] [place] ([facility] LAB [address] [place] [address], [place] [phone] from Last 3 Months Insurance MEDICARE Care Teams Branch Rental Manager Relationship Specialty Start Date End Date Marita Wetzel DO [address] [place], [place] PCP - General 01/09/23
--- OUTSIDE RECORDS SUMMARY | 2024-07-28 15:54 | XMS_ITS | Encounter Summary ---
Author Organization [facility] Address [address] [place] [address] Care Team Providers Care Network Operations Center Engineer Name Role Phone Marita Wetzel Primary Care Provider +1- [phone] Encounter Details Date Type Department Care Team (Late st Contact Info) Description 02/25/2024 Lab Requisition [facility] Lab [address] [facility] [place] [address] Catalina Burr MD [address] [place] [address] Chronic embolism and thrombosis of unspecified vein; [...] Travel phlebotomy fee (02/25/2024 6:30 AM EST) [facility] TRAVEL PHLEBOTOMY FEE Completed 02/25/2024 11:01 AM EST [facility] Blood Venous blood specimen / Unknown Venipuncture / Unknown 02/25/2024 6:30 AM EST 02/25/2024 10:25 AM EST us Catalina Burr MD LAB BLOOD ORDERABLES Final Resul t [facility] [address] [place] [address], * (ABNORMAL) Tacrolimus level (02/25/2024 6:30 AM [...] at [facility], [address] , [place], [place] ??[address] ? [phone] Ashtyn Leigh MD, PhD - Armature Winder Repair Helper Blood Venous blood specimen / Unknown Venipuncture / Unknown 02/25/2024 6:30 AM EST 02/25/2024 10:25 AM EST us Catalina Burr MD LAB BLOOD ORDERABLES Final Resul t [facility] [address] [place] [address] documented in this encounter Visit Diagnoses Diagnosis Chronic embolism and thrombosis of unspecified vein Acute kidney failure, unspecified (CMS/HCC) Acute kidney failure, unspecified documented in this encounter Care Teams Network Operations Center Engineer Relationship Specialty Start Date End Date Marita Wetzel DO [address] [place] [address] PCP - General 01/09/23 documented as of this encounter
--- OUTSIDE RECORDS SUMMARY | 2024-07-28 15:54 | XMS_ITS | Encounter Summary ---
Author Organization [facility] Address [address] [place] [address] Care Team Providers Care Nailing Machine Operator Name Role Phone Marita Wetzel Primary Care Provider +1- [phone] Encounter Details Date Type Department Care Team (Late st Contact Info) Description 04/30/2024 Lab Requisition [facility] Lab [address] [place] [phone] Marily Gordillo MD [address] [place] [phone] Chronic embolism and thrombosis of unspecified vein; [...] CHEMISTRY METHOD 05/03/2024 10:39 AM EST [facility] Potassium 5.1 3.5 - 5.5 mmol/L LAB CHEMISTRY METHOD 05/03/2024 10:39 AM [facility] Chloride 99 96 - 110 mmol/L LAB CHEMISTRY METHOD 05/03/2024 10:39 AM [facility] CO2 28 21 - 32 mmol/L LAB CHEMISTRY METHOD 05/03/2024 10:39 AM [facility] Anion Gap 7 3 - 11 LAB CHEMISTRY METHOD 05/03/2024 10:39 AM [facility] Glucose 133(H) 70 - 100 mg/dL LAB CHEMISTRY METHOD 05/03/2024 10:39 AM [facility] BUN 40(H) 5 - 25 mg/dL LAB CHEMISTRY METHOD 05/03/2024 10:39 AM [facility] Creatinine 3.27(H) 0.50 - 1.10 mg/dL LAB CHEMISTRY METHOD 05/03/2024 10:39 AM [facility] eGFR 15(L) >=60 mL/min/1. 73m2 LAB CHEMISTRY METHOD 05/03/2024 10:39 AM [facility] Comment:Calculation based on the??Chronic Kidney Disease Epidemiology Collaboration (CKD-EPI) equation refit??without adjustment for race. BUN/Creatinine Ratio 12.2 LAB CHEMISTRY METHOD 05/03/2024 10:39 AM [facility] Albumin 2.1(L) 3.2 - 5.0 g/dL LAB CHEMISTRY METHOD 05/03/2024 10:39 AM [facility] Calcium 8.6 8.5 - 10.5 mg/dL LAB CHEMISTRY METHOD 05/03/2024 10:39 AM [facility] Phosphorus 1.8(L) 2.5 - 4.5 mg/dL LAB CHEMISTRY METHOD 05/03/2024 10:39 AM [facility] Blood Venous blood specimen / Unknown Venipuncture / Unknown 05/03/2024 6:09 AM EST 05/03/2024 9:28 AM EST us Marily Gordillo MD LAB BLOOD ORDERABLES Final Resul t [facility] [place] ([facility]) [facility] [address] [place] [address], * Tacrolimus level (05/03/2024 6:09 AM EST) [...] investigational or for research. Test performed at [facility], [address], [place], [place] ??[address] ? [phone] Ashtyn Leigh MD, PhD - Accounts Payable Associate Blood Venous blood specimen / Unknown Venipuncture / Unknown 05/03/2024 6:09 AM EST 05/03/2024 9:28 AM EST Marily Gordillo MD LAB BLOOD ORDERABLES Final Resul t [facility] [address] [place] [address] documented in this encounter Visit Diagnoses Diagnosis Chronic embolism and thrombosis of unspecified vein Acute kidney failure, unspecified (CMS/[facility]) Acute kidney failure, unspecified documented in this encounter Care Teams Nailing Machine Operator Relationship Specialty Start Date End Date Marita Wetzel DO [address] [place] [address] PCP - General 01/09/23 documented as of this encounter
--- OUTSIDE RECORDS SUMMARY | 2024-07-28 15:54 | XMS_ITS | Clinical Summary ---
Author Organization [employer] Address [address] [place] [address] 7 [place] [address] Care Team Providers Care Tech Brazer Tester Name Role Phone DevendraMarita perez Primary Care Provider + [phone] Allergies Active Allergy Reactions Criticality Noted Date Comments Codeine Hives High 11/12/2011 Other reaction(s): FAINTING/HIVES Oxycodone 07/30/2022 Oxycodone-Acetaminophen Hives High 10/05/2012 Other reaction(s): Nausea / Vomiting Medications * This document contains information received from the source organization and may not represent a complete record from that organization. 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 10/10/19 24 Active Procrit 29300 UNIT/ML injection 12/09/19 24 Active insulin glargine [...] Type Department Care Team Description 07/21/[address] [facility] [place] [address] Marita Wetzel DO 07/19/[address] [facility] [address] Marita Wetzel DO Results 07/06/[address] [address] Marita Wetzel DO Medication Question 07/01/2024 Orders Only GENERIC EXTERNAL DATA DEPARTMENT Provider, Generic External Data 06/25/[address] [facility] [place] [address] Marita Wetzel DO Nurse Triage 06/25/[address] [address] Marita Wetzel DO Med Refill 06/22/[address] [address] Marita Wetzel DO Medication Question 06/17/[address] [address] Marita Wetzel DO 06/11/2024 Patient Outreach [address] [address] Marita Wetzel DO Transition Of Care (Tcm) (HDF unscheduled) 06/11/[address] [address] Marita Wetzel DO Hospital Follow-up 05/27/2024 Orders Only GENERIC EXTERNAL DATA DEPARTMENT Provider, Generic External Data 05/07/[address] [facility] [address] Renetta Romo MA Recall Letter (Recall Letter [...] Description 08/20/2024 10:00 AM EDT Office Visit [facility] [address] [place] [address] Marita Wetzel DO [address] [place] [address] Health Maintenance Due Date Last Done Comments [...] EDT Narrative 07/08/2024 8:27 AM EDT ? [facility] ?[address] ?[place] [address] ?XRay Report ? Signed ? Patient: Alix Sharp ?MR#: [id number] ?? 43 ? : 1960 ?Acct:[id number] ? Age/Sex: 64 / F ?ADM Date: 07/07/24 ? Loc: HO.XRAY ? Attending Dr: Kim Katz MD ? Ordering Physician: Kim Katz MD ?? Date of Service: 07/07/24 ?? Procedure(s): XR chest 2V ?? Accession Number(s): [id number] ? cc: Kim Katz MD; Marita Wetzel [...] DD/ 1414 ? TD/TT: 07/07/24 1533 ? Studio Control Operator: ? Procedure Note Dondanie, Image - 07/08/[address] [address] XRay Report Signed Patient: Alix Sharp BMR#: [id number] 43 : 1960cct:[id number] Age/Sex: 64 / FADM Date: 07/07/24 Loc: HO.XRAY Attending Dr: Kim Katz MD Ordering Physician: Kim Katz MD Date of Service: 07/07/24 Procedure(s): XR chest 2V Accession Number(s): [id number] cc: Kim Katz MD; Marita Wetzel DO [...] 07/08/24 0823 DD/ 1414 TD/TT: 07/07/24 1533 Studio Control Operator: us [facility] External Provider IMG XR PROCEDURES Edited Result - Final * XR Chest 1 View (06/04/2024 5:19 AM EST) Only the most recent of2 resultswithin the time period is included. Anatomical Region Laterality Modality Chest Radiographic Lily ging 06/04/2024 5:19 AM EST Narrative 06/04/2024 5:20 AM EST ? [facility] ?[address] ?[place] [address] ?XRay Report ? Signed ? Patient: West,Alix B ?MR#: [id number] ?? 43 ? : 1960 ?Acct:[id number] ? Age/Sex: 64 / F ?ADM Date: 05/28/24 ? Loc: HO.IMC ?477-1 ? Attending Dr: Malik Orozco MD ? Ordering Physician: Niarv Osborn MD ?? Date of Service: 06/03/24 ?? Procedure(s): XR chest 1V ?? Accession Number(s): [id number] ? cc: Marita Wetzel DO; Nirav Osborn [...] DD/ 0519 ? TD/TT: 06/04/24 0519 ? Studio Control Operator: ? Procedure Note Juanita, Image - 06/04/2024 [facility] [address] [place] [address] XRay Report Signed Patient: Alix Sharp BMR#: [id number] 43 : 1960cct:[id number] Age/Sex: 64 / FADM Date: 05/28/24 Loc: [facility] 477-[address]: Malik Orozco MD Ordering Physician: Nirav Osborn MD Date of Service: 06/03/24 Procedure(s): XR chest 1V Accession Number(s): [id number] cc: Marita Wetzel DO; Nirav Osborn MD [...] in OV> 06/04/2420 DD/ 8 TD/TT: 06/04/24518 Studio Control Operator: [facility] External Provider IMG XR PROCEDURES Final Result * CT Chest w/ Contrast (05/31/2024 7:00 AM EST) Anatomical Region Laterality Modality Body, Chest Computed Tomogra phy 05/31/2024 7:00 AM EST Narrative 05/31/2024 9:38 AM EST ? [facility] ?[address] ?[place] [address] ? CT Scan Report ? Signed ? Patient: West,Alix B ?MR#: [id number] ?? 43 ? : 1960 ?Acct:[id number] ? Age/Sex: 64 / F ?ADM Date: 05/28/ ? Loc: HO.IMC ?477-1 ? Attending Dr: Ab Barba MD ? Ordering Physician: Malik Orozco MD ?? Date of Service: 05/31/24 ?? Procedure(s): CT chest w IV con ?? Accession Number(s): [id number] ? cc: Malik Orozco MD; Marita Wetzel DO ? Report Number: ?? [id number]: Total DLP = ??187.00 mGy-cm ?? EXAMINATION: [...] DD/ 0700 ? TD/TT: 05/31/24 0905 ? Studio Control Operator: ? Procedure Note Juanita, Image - 05/31/[address] [place] [address] [address] Scan Report Signed Patient: Alix Sharp BMR#: [id number] 43 : 1960cct:[id number] Age/Sex: 64 / FADM Date: 05/28/24 Loc: [facility] 477-[address]: Ab Barba MD Ordering Physician: Malik Orozco MD Date of Service: 05/31/24 Procedure(s): CT chest w IV con Accession Number(s): [id number] cc: Malik Orozco MD; Marita Wetzel DO Report Number: [id number]: Total DLP = 187.00 mGy-cm EXAMINATION: CT [...] in OV> 05/31/24934 DD/ 9 TD/TT: 05/31/24904 Studio Control Operator: [facility] External Provider IMG CT PROCEDURES Edited Result - Final * Mr Brain w/ and w/o Contrast (05/30/2024 2:27 PM EST) Anatomical Region Laterality Modality Brain Magnetic Resonan ce 05/30/2024 2:27 PM EST Narrative 05/30/2024 2:30 PM EST ? [facility] ?[address] ?[place] [address] ? Magnetic Resonance Report ? Signed with Addenda ? Patient: West,Alix B ?MR#: [id number] ?? 43 ? : 1960 ?Acct:[id number] ? Age/Sex: 64 / F ?ADM Date: 05/28/24 ? Loc: HO.IMC ?477-1 ? Attending Dr: Malik Orozco MD ? Ordering Physician: Malik Orozco MD ?? Date of Service: 05/30/24 ?? Procedure(s): MR head/brain wo/w con ?? Accession Number(s): [id number] ? cc: Malik Orozco MD; Marita Wetzel [...] ? DD/ 26 ? TD/TT: 05/30/241426 ? Studio Control Operator: ? Procedure Note Delvis Grant - 05/30/[address] [address] Magnetic Resonance Report Signed with Daniel Patient: Alix Sharp BMR#: [id number] 43 : 1960cct:[id number] Age/Sex: 64 / FADM Date: 05/28/24 Loc: [facility] 477-[address]: Malik Orozco MD Ordering Physician: Malik Orozco MD Date of Service: 05/30/24 Procedure(s): MR head/brain wo/w con Accession Number(s): [id number] cc: Malik Orozco MD; Marita Wetzel DO [...] 05/30/24 1429 DD/ 26 TD/TT: 05/30/24 142 Studio Control Operator: [facility] External Provider IMG MRI PROCEDURES Edited Result - Final * VASC Carotid Artery Duplex Bilateral (05/30/2024 1:41 PM EST) 05/30/2024 1:41 PM EST Narrative [facility] - 05/31/2024 8:14 AM EST ? [facility] ?[address] ?[place] [address] ? Ultrasound Report ? Signed ? Patient: Aron,Alix B ?MR#: [id number] ?? 43 ? : 1960 ?Acct:[id number] ? Age/Sex: 64 / F ?ADM Date: 05/28/ ? Loc: HO.IMC ?477-1 ? Attending Dr: Ab Barba MD ? Ordering Physician: Malik Orozco MD ?? Date of Service: 05/30/24 ?? Procedure(s): US carotid duplex BI ?? Accession Number(s): [id number] ? cc: Malik Orozco MD; Marita Wetzel [...] DD/ 1341 ? TD/TT: 05/30/24 1352 ? Studio Control Operator: ? Procedure Note Delvis Grant - 05/31/2024 [place] [address] [place] [address] Ultrasound Report Signed Patient: Alix Sharp BMR#: [id number] 43 : 1Acct:[id number] Age/Sex: 64 / FADM Date: 05/28/24 Loc: [facility] 477-[address]: Ab Barba MD Ordering Physician: Malik Orozco MD Date of Service: 05/30/24 Procedure(s): US carotid duplex BI Accession Number(s): [id number] cc: Malik Orozco MD; Marita Wetzel DO [...] by: Db Berry MD 05/31/2024 08:12 AM [facility] Dictated By: Db Berry MD Signed By: <Electronically signed by Db Berry MD in OV> 05/31/24 0812 DD/ 1341 TD/TT: 05/30/24 1352 Studio Control Operator: us [facility] External Provider CV VASC ULAR PROCEDURES Edited Result - Final [facility] [address] [place] [address] * CT Head Stroke w/o Contrast (05/30/2024 11:28 AM EST) Anatomical Region Laterality Modality Computed Tomogra phy 05/30/2024 11:2 8 AM EST Narrative 05/30/2024 11:30 AM EST ? [facility] ?[address] ?[place] [address] ? CT Scan Report ? Signed with Addenda ? Patient: Alix Sharp ?MR#: [id number] ?? 43 ? : 1960 ?Acct:[id number] ? Age/Sex: 64 / F ?ADM Date: 05/28/24 ? Loc: HO.IMC ?477-1 ? Attending Dr: Malik Orozco MD ? Ordering Physician: Malik Orozco MD ?? Date of Service: 05/30/24 ?? Procedure(s): CT head for STROKE ?? Accession Number(s): [id number] ? cc: Malik Orozco MD; Marita Wetzel DO ? Report Number: ?? [id number]: Total DLP = ??749.00 mGy-cm ?ADDENDUM ?? [...] ?? CT/SR - BRAIN WO IV CONTRAST [address] - 09/16/18 13:47 EDT ? Findings: ?? [...] DD/ 1128 ? TD/TT: 05/30/24 1128 ? Studio Control Operator: ? Procedure Note Pergregclifrocio, Image - 05/30/[address] [place] [address] [address] Scan Report Signed with Daniel Patient: Alix Sharp BMR#: [id number] 43 : 1960cct:[id number] Age/Sex: 64 / FADM Date: 05/28/24 Loc: [facility] 477-[address]: Malik Orozco MD Ordering Physician: Malik Orozco MD Date of Service: 05/30/24 Procedure(s): CT head for STROKE Accession Number(s): [id number] cc: Malik Orozco MD; Marita Wetzel DO Report Number: [id number]: Total DLP = 749.00 mGy-cm ADDENDUM This [...] EDT CT/SR - BRAIN WO IV CONTRAST 30[address] - 09/16/18 13:47 EDT Findings: Findings concerning [...] This document has been electronically signed by: Ynoi Beaver MD on 05/30/2024 11:28:55 Dictated By: Yoni Beaver MD Signed By: <Electronically signed by Yoni Beaver MD in OV> 05/30/24 113 DD/ 27 TD/TT: 05/30/248 Studio Control Operator: [facility] External Provider IMG CT PROCEDURES Edited Result - Final * (ABNORMAL) Basic Metabolic Panel (05/27/2024 11:34 PM EST) Sodium 135 135 - 145 mmol/L [facility] Potassium 6.1(HH) 3.3 - 5.1 mmol/L [facility] Comment:Critical value for t est(s): POTS Results called to and readback by: ELICEO Person calling: SALIERD Date:05/27/24 Time:2359 Chloride 104 96 - 108 mmol/L [facility] Carbon Dioxide 23 22 - 29 mmol/L [facility] Anion Gap 14 12 - 20 [facility] Urea Nitrogen (BUN) 50(H) 9 - 16 mg/dL [facility] Creatinine, Serum 3.04(H) 0.5 - 1.4 mg/dL [facility] Creatinine Clr Calc Pharmacy 14.1 [facility] Comment:Provided height and weight: 167.64 cm,48 kg.eGFR (calculated from the MDRD study equation) and eCrCl(calculated from the Cockcroft-Gault equation) are based ondifferent parameters and may not yield comparable results.If eCrCl result is absurd, please check patient'sheight/weight. Estimated Glomerular Filt Rate 15 [facility] Comment:Chronic Kidney Disea se: Estimated GFR < 60 mL/min/1.70d4Rffmlj Kidney Disease: Estimated GFR < 15 mL/min/1.73m2 Glucose 76 60 - 115 mg/dL [facility] Calcium 9.4 8.4 - 10.2 mg/dL [facility] 05/27/2024 11:3 4 PM EST 05/27/2024 11:37 PM EST us Generic External Data Provider LAB BLOOD ORDERAB LES Final Result [facility] [address] [place] [address] [phone] * Lactic Acid (05/27/2024 9:44 PM EST) Lactic Acid 0.5 0.5 - 2.0 mmol/L [facility] 05/27/2024 9:44 PM EST 05/27/2024 9:54 PM EST us Generic External Data Provider LAB BLOOD ORDERAB LES Final Result [facility] [address] [facility] [place] [address] [phone] * CT Head w/o Contrast (05/27/2024 9:42 PM EST) Anatomical Region Laterality Modality Head, Neck Computed Tomogra phy 05/27/2024 9:42 PM EST Narrative 05/27/2024 9:44 PM EST ? [facility] ?[address] ?[place] [address] ? CT Scan Report ? Signed ? Patient: Alix Sharp ?MR#: [id number] ?? 43 ? : 1960 ?Acct:[id number] ? Age/Sex: 64 / F ?ADM Date: 05/27/24 ? Loc: HO.ED ? Attending Dr: ? Ordering Physician: Jerod Simons ?? Date of Service: 05/27/24 ?? Procedure(s): CT head/brain wo IV con ?? Accession Number(s): [id number] ? cc: Marita Wetzel DO; Jerod Simons ? Report Number: ?? [id number]: Total DLP = 1132.00 mGy-cm ? CLINICAL [...] ? DD/ 41 ? TD/TT: 05/27/242141 ? Studio Control Operator: ? Procedure Note Donotclifinterpreter, Image - 05/27/[address] [place] [address] [address] Scan Report Signed Patient: Alix Sharp BMR#: [id number] 43 : 1960cct:[id number] Age/Sex: 64 / FADM Date: 05/27/24 Loc: HO.ED Attending Dr: Ordering Physician: Jerod Simons Date of Service: 05/27/24 Procedure(s): CT head/brain wo IV con Accession Number(s): [id number] cc: Marita Wetzel DO; Jerod Simons Report Number: [id number]: Total DLP = 1132.00 mGy-cm CLINICAL HISTORY: [...] in OV> 05/27/242142 DD/ 41 TD/TT: 05/27/242141 Studio Control Operator: [facility] External Provider IMG CT PROCEDURES Final Result * POCT HGB A1C (12/09/2023 9:43 AM EDT) Hemoglobin A1C 5.9 4.0 - 6.0 % QC Media Lot # [id number] Lot# Expiration Date ,802,026 Blood 12/09/2023 9:43 AM EDT Marita Wetzel DO POINT OF CARE TEST ENTER/HUMBERTO T ORDERABLES Final Result * (ABNORMAL) Lipid Panel, Standard (10/06/2023) Triglycerides 157 40 - 160 mg/dL Cholesterol 115 0 - 200 mg/dL HDL Cholesterol 31(A) 35 - 70 mg/dL LDL Cholesterol 57 mg/dL Blood Venous blood specimen / Unknown Result [facility] Historical Provider LAB BLOOD ORDERABLES Carly l Result * BI Mammogram Screening Tomosynthesis Bilateral (07/17/2023 10:45 AM EDT) Anatomical Region Laterality Modality Breast Bilateral Mammography 07/17/2023 10:4 5 AM EDT Narrative 08/03/2023 8:29 PM EDT ? [facility] ? [address] ?[place] [address] ? Mammography Report ? Signed ? Patient: West Batista,Alix F ?MR#: ?? [id number] ? : 1960 ?Acct:[id number] ? Age/Sex: 63 / F ?ADM Date: 03/28/24 ? Loc: HO.MAMMO ? Attending Dr: Marita Wetzel DO ? Ordering Physician: Marita Wetzel DO ?Results: 2B ?? enign Findings ? Date of Service: 07/17/23 ?Follow Up: 1 Year From Orig ?? inal Mammogram ? Procedure(s): MM tomosynthesis screening BI ?? Accession Number(s): [id number] ? cc: Marita Wetzel DO ? EXAMINATION: [...] 08/03/232024 ? DD/ 44 ? TD/TT: ? Studio Control Operator: ? Procedure Note Donotuseinterpreter, Image - 08/03/2023 [place] [facility] [address] [place] [address] Mammography Report Signed Patient: Alix Dennis FMR#: [id number] : 1960cct:[id number] Age/Sex: 63 / FADM Date: 07/17/23 Loc: HO.MAMMO Attending Dr: Marita Wetzel DO Ordering Physician: Marita Wetzelults: 2B enign Findings Date of Service: 07/17/23Follow Up: 1 Year From Orig inal Mammogram Procedure(s): MM tomosynthesis screening BI Accession Number(s): [id number] cc: Marita Wetzel DO EXAMINATION: MM SCREENING [...] MD in OV> 08/03/232024 DD/ 1045 TD/TT: Studio Control Operator: Marita Wetzel DO IMG BI PROCEDURES Edited [...] Payer (Ef fective 2019-Present) Name:Lynne AronAlix Member ID:[id number] Relation to Subscriber:Self Name:Alix Toussaint Subscriber ID:[id number] Payer ID:[facility] Group ID:Not on file Type:Medicare Address: [facility] [address] [address] [facility] [employer] Care Teams Tech Brazer Tester Relationship Specialty Start Date End Date Marita Wetzel DO [address] [place] [address] PCP - General Family Medicine 04/21/18 [facility] 05/22/24
--- OUTSIDE RECORDS SUMMARY | 2024-07-28 15:55 | XMS_ITS | Encounter Summary ---
Author Organization [facility], Address [address] [place] [address] Phone Care Team Providers Care Machine Shop Apprentice Name Role Phone Marita Wetzel DO Primary Care Provider Unava ilable Reason for Visit * Reason Onset Date Comments Attempted to schedule port flush 07/28/2024 Encounter Details Date Type Department Care Team (Late st Contact Info) Description 07/28/2024 Telephone [facility] - [facility] [address] [place] [address] Hazel Zepeda [address] [place] [address] Attempted to schedule port flush [...] today at 10:30 am. Author Parth lala [facility] and asked that she notify us when pt's abx are complete andthe last time they flush port so we can assume care and flushing of the port. Tesha agreed. documented in this encounter Plan of Treatment Upcoming Encounters Date Type Department Care Team (Late st Contact Info) Description 11/03/2024 12:30 PM EDT Scheduled Only [facility] - [facility] [address] [place] [address] documented as of this encounter Visit Diagnoses Not on filedocumented in this encounter Care Teams Machine Shop Apprentice Relationship Specialty Start Date End Date Marita Wetzel DO [address] [place] [address] PCP - General Family Medicine 11/14/22 documented as of this encounter
--- OUTSIDE RECORDS SUMMARY | 2024-07-28 15:55 | XMS_ITS | Encounter Summary ---
Author Organization [facility], Address [address] [place] [phone] Phone Care Team Providers Care Fence Builder Name Role Phone Marita Wetzel DO Primary Care Provider Unava ilable Reason for Visit * Reason Comments Med Refill Encounter Details Date Type Department Care Team (Late Contact Info) Description 06/18/2024 Refill [facility] [address] [place] [phone] Srinivas Agrawal MD [address] [place] [address] [place] [address] Social History Tobacco Use Types [...] Only [facility], - Vascular Access Center [address] [place] [address] [place] [address] documented as of this encounter Procedures Procedure Name Priority Date/Time Associated Diagnosis Comments HD KINETICS Routine 06/18/2024 POST CHEMISTRY Routine 06/18/2024 IMMUNO CHEMISTRY Routine 06/18/2024 HEMATOLOGY Routine 06/18/2024 CHEMISTRY Routine 06/18/2024 CHEMISTRY Routine 06/18/2024 [facility] LAB RESULTS Routine 06/18/2024 documented in this encounter Results * [facility]ex IVET Lab Results (06/18/2024) eKt/V ([place]attersall) 1.28 Knowledge Center WSTDKT/V 0.8 Knowledge Center spKt/V (Daugirdas II) 1.50 [facility] 06/18/2024 06/18/2024 [facility] Ordering Provider LAB BLOOD ORDERABLES Final Result [facility] Contact Performing lab Unknown, [place] * HD KINETICS (06/18/2024) Pathologist [facility] % Urea Reduction 70 65 - 80 % [facility] 06/18/2024 06/22/2024 9:5 5 AM EST Narrative Resulting Agency Comment Specimen source: Plasma Srinivas Agrawal MD LAB BLOOD ORDERABLES Final Result [facility] See order comments or contact performing lab Unknown, [place] * POST CHEMISTRY (06/18/2024) BUN Post Dialysis 13 6 - 19 mg/dL [facility] 06/18/2024 06/22/2024 9:5 5 AM EST Narrative [facility] - 06/22/2024 Unless otherwise specified, test(s) performed at: [facility], [address] [place], [place] [id number] MORTICIAN INVESTIGATOR: Dwayne Fuentes M.D. For any questions, please call customer service at FREQUENCY:MONTHLY Resulting Agency Comment Specimen source: Plasma Srinivas Agrawal MD LAB BLOOD ORDERABLES Final Result [facility] See order comments or contact performing lab Unknown, [place] * IMMUNO CHEMISTRY (06/18/2024) Pathologist [facility] Hep B Surface Ag Negative Negative [facility] 06/18/2024 06/19/2024 11: 21 AM EST Narrative Resulting Agency Comment Specimen source: Serum Srinivas Agrawal MD LAB BLOOD ORDERABLES Final Result Performing Organization Address City/[facility]/ZIP Co de Phone Number [facility] See order comments or contact performing lab Unknown, [place] * (ABNORMAL) [facility] (06/18/2024) Pathologist [facility] BUN 44(H) 6 - 19 mg/dL [facility] [...] Labs Ferritin 1,648(H) 10 - 291 ng/mL [facility] 06/18/2024 06/19/2024 11: 21 AM EST Narrative [facility] - 06/19/2024 Unless otherwise specified, test(s) performed at: [facility], [address] [place], [place] [id number] MORTICIAN INVESTIGATOR: Dwayne Fuentes M.D. For any questions, please call customer service at FREQUENCY:MONTHLY Resulting Agency Comment Specimen source: Serum Srinivas Agrawal MD LAB BLOOD ORDERABLES Edite d Result - Final Performing Organization Address City/[facility]/ZIP Co de Phone Number [facility] See order comments or contact performing lab Unknown, [place] * (ABNORMAL) HEMATOLOGY (06/18/2024) Hemoglobin 7.9(L) 12.0 - 16.0 g/dL [facility] Hemoglobin x 3 23.7(L) 36.0 - 48.0 % [facility] 06/18/2024 06/19/2024 12: 24 PM EST Narrative [facility] - 06/19/2024 Unless otherwise specified, test(s) performed at: [facility], [address] [place] [address] MORTICIAN INVESTIGATOR: Dwayne Fuentes M.D. For any questions, please call customer service at FREQUENCY:MONTHLY Resulting Agency Comment Specimen source: Blood Srinivas Agrawal MD LAB BLOOD ORDERABLES Final Result Performing Organization Address [facility] de Phone Number [facility] See order comments or contact performing lab Unknown, [place] * (ABNORMAL) [facility] Chemistry (06/18/2024) PTH 145(H) 16 - 80 pg/mL [facility] 06/18/2024 06/19/2024 11: 40 AM EST Narrative [facility] - 06/19/2024 Unless otherwise specified, test(s) performed at: [facility], [address] [place] [address] MORTICIAN INVESTIGATOR: Dwayne Fuentes M.D. For any questions, please call customer service at FREQUENCY:MONTHLY Resulting Agency Comment Specimen source: Plasma us Srinivas Agrawal MD LAB BLOOD ORDERABLES Final Result [facility] See order comments or contact performing lab Unknown, [place] documented in this encounter Visit Diagnoses Not on filedocumented in this encounter Care Teams Fence Builder Relationship Specialty Start Date End Date Marita Wetzel DO [address] [place] [address] PCP - General Family Medicine 11/14/22 documented as of this encounter
--- OUTSIDE RECORDS SUMMARY | 2024-07-28 15:55 | XMS_ITS | Encounter Summary ---
Author Organization [facility], Address [address] [place] [address] Phone Care Team Providers Care Stone Rubber Name Role Phone Marita Wetzel DO Primary Care Provider Unava ilable Reason for Visit * Reason Comments Med Refill Encounter Details Date Type Department Care Team (Late Contact Info) Description 05/08/2021 Refill [facility] [address] [place] [phone] Bernardo Doty MD [address] [place] [address] [place] [address] Social [...] Only [facility] - [facility] [address] [place] [address] [place] [address] documented as of this encounter Visit Diagnoses Not on filedocumented in this encounter Care Teams Stone Rubber Relationship Specialty Start Date End Date Marita Wetzel DO [address] [place] [address] PCP - General Family Medicine 7/27/23 documented as of this encounter
--- OUTSIDE RECORDS SUMMARY | 2024-07-28 15:55 | XMS_ITS | Encounter Summary ---
Author Organization [facility] Address [address] [place] [address] Care Team Providers Care Banquet Pilot Name Role Phone Mary JaneMarita yousif Primary Care Provider [phone]- [phone] Encounter Details Date Type Department Care Team (Late st Contact Info) Description 02/24/2024 Lab Requisition [facility] Main Lab [address] [facility] [place] [address] Norbert Lopez MD [address] [facility] 204 [facility] [address] Encounter for other specified [...] Travel phlebotomy fee (02/24/2024 12:45 PM EST) [facility] HOME TRAVEL PHLEBOTOMY FEE Completed 02/24/2024 2:[address] [facility] Blood Venous blood specimen / Unknown Venipuncture / Unknown 02/24/2024 12:45 PM EST 02/24/2024 1:29 PM EST Norbert Lopez MD LAB BLOOD ORDERABLES Final Resul t Performing Organization Address [facility] Co de Phone Number [facility] [address] [place] [address], [place] [phone] * (ABNORMAL) Heparin and low molecular weight anti Xa level (02/24/2024 12:45 PM EST) [facility] Heparin Anti-Xa 0.28(L) 0.30 - 0.70 I [...] ORDERABLES Final Resul t Performing Organization Address [facility]/ZIP Co de Phone Number [facility] [address] [place] [address], [place] [phone] * (ABNORMAL) Basic metabolic panel (02/24/2024 12:45 PM EST) [facility] Sodium 137 133 - 145 mmol/L LAB CHEMISTRY METHOD 02/24/2024 3:[address] [facility] Potassium 3.7 3.5 - 5.5 mmol/L LAB CHEMISTRY METHOD 02/24/2024 3:10 PM [facility] Chloride 104 96 - 110 mmol/L LAB CHEMISTRY METHOD 02/24/2024 3:10 PM [facility] CO2 22 21 - 32 mmol/L LAB CHEMISTRY METHOD 02/24/2024 3:10 PM [facility] Anion Gap 11 3 - 11 LAB CHEMISTRY METHOD 02/24/2024 3:10 PM [facility] Glucose 163(H) 70 - 100 mg/dL LAB CHEMISTRY METHOD 02/24/2024 3:10 PM [facility] BUN 33(H) 5 - 25 mg/dL LAB CHEMISTRY METHOD 02/24/2024 3:10 PM [facility] Creatinine 3.25(H) 0.50 - 1.10 mg/dL LAB CHEMISTRY METHOD 02/24/2024 3:10 PM [facility] eGFR 15(L) >=60 mL/min/1. 73m2 LAB CHEMISTRY METHOD 02/24/2024 3:10 PM [facility] Comment:Calculation based on the??Chronic Kidney Disease Epidemiology Collaboration (CKD-EPI) equation refit??without adjustment for race. BUN/Creatinine Ratio 10.2 LAB CHEMISTRY METHOD 02/24/2024 3:10 PM [facility] Calcium 9.4 8.5 - 10.5 mg/dL LAB CHEMISTRY METHOD 02/24/2024 3:10 PM [facility] Blood Venous blood specimen / Unknown Venipuncture / Unknown 02/24/2024 12:45 PM EST 02/24/2024 1:29 PM EST us Norbert Lopez MD LAB BLOOD ORDERABLES Final Resul t [facility] [address] [place] [address], [place] [phone] * (ABNORMAL) Complete blood count (02/24/2024 12:45 PM EST) [facility] Signature WBC 11.3(H) 4.8 - 10.8 K/mcL LAB HEMETOLOGY METHOD 02/24/2024 1:38 PM [facility] RBC 3.30(L) 3.80 - 4.80 M/mcL LAB HEMETOLOGY METHOD 02/24/2024 1:38 PM [facility] Hemoglobin 9.2(L) 11.5 - 16.0 g/dL LAB HEMETOLOGY METHOD 02/24/2024 1:38 PM [facility] Hematocrit 31.3(L) 35.0 - 47.0 % LAB HEMETOLOGY METHOD 02/24/2024 1:38 PM [facility] MCV 95.4 79.0 - 98.0 FL LAB HEMETOLOGY METHOD 02/24/2024 1:38 PM [facility] MCH 28.0 27.0 - 32.0 pcg LAB HEMETOLOGY METHOD 02/24/2024 1:38 PM [facility] MCHC 29.4(L) 32.0 - 37.0 g/dL LAB HEMETOLOGY METHOD 02/24/2024 1:38 PM [facility] RDW 16.6(H) 11.0 - 15.0 % LAB HEMETOLOGY METHOD 02/24/2024 1:38 PM [facility] Platelets 278 130 - 400 K/mcL LAB HEMETOLOGY METHOD 02/24/2024 1:38 PM [facility] MPV 10.7 7.0 - 11.0 FL LAB HEMETOLOGY METHOD 02/24/2024 1:38 PM [facility] NRBC 0.0 <1.0 % LAB HEMETOLOGY METHOD 02/24/2024 1:[address] [facility] NRBC Absolute 0.00 <0.10 K/mcL LAB HEMETOLOGY METHOD 02/24/2024 1:[address] [facility] Blood Venous blood specimen / Unknown Venipuncture / Unknown 02/24/2024 12:45 PM EST 02/24/2024 1:29 PM EST us Norbert Lopez MD LAB BLOOD ORDERABLES Final Resul t [facility] [address] [place] [address], documented in this encounter Visit Diagnoses Diagnosis Encounter for other specified prophylactic measures Acute kidney failure, unspecified (CMS/HCC) Acute kidney failure, unspecified documented in this encounter Care Teams Banquet Pilot Relationship Specialty Start Date End Date Marita Wetzel DO [address] [place] [address] PCP - General 01/09/23 documented as of this encounter
--- OUTSIDE RECORDS SUMMARY | 2024-07-28 15:55 | XMS_ITS | Encounter Summary ---
Author Organization [facility], Address [address] [place] [address] Phone Care Team Providers Care Marriage And Family Teacher Name Role Phone Marita Wetzel DO Primary Care Provider Unava ilable Reason for Visit * Reason Comments Med Refill Encounter Details Date Type Department Care Team (Late Contact Info) Description 01/04/2021 Refill [facility] [address] [place] [phone] Bernardo Doty MD [address] [place] [address] [place] [address] Social History Tobacco Use Types [...] Only [facility] - [facility] Center [address] [place] [address] [place] [phone] documented as of this encounter Visit Diagnoses Not on filedocumented in this encounter Care Teams Marriage And Family Teacher Relationship Specialty Start Date End Date Marita Wetzel DO [address] [place] [address] PCP - General Family Medicine 7/27/23 documented as of this encounter
== END 2024-07-28 14:36 | disposition home or self-care (01) ==
PROVIDERS: PCP Family Medicine; Visit Provider Internal Medicine
DX: A43.9 Nocardiosis, unspecified (principal)
CPT/HCPCS: 99213

== ENCOUNTER 2024-08-24 11:02 | Outpatient (REF) | payer MEDICARE, OTHER, SELFPAY ==
--- NOTE | ~2024-08-24 | XR_ITS ---
EXAMINATION: XR CHEST CLINICAL INFORMATION: A43.9 - Nocardiosis, unspecified COMPARISON: July 07, 2024. TECHNIQUE: 2 views of the chest were obtained. FINDINGS: Meniscal shaped opacity right lower hemithorax. Pulmonary reticular pattern. Patchy opacities, right lung. No pneumothorax. Cardiomediastinal silhouette size is prominent, unchanged. Right-sided Port-A-Cath remains at the SVC. Calcified plaque aortic arch. Multilevel mild thoracic and upper lumbar spondylosis. XR/XR chest 2V IMPRESSION: Airspace disease, right lung and moderate to large volume right-sided pleural effusion. Right-sided empyema versus loculated effusion cannot be excluded.. Overall slight improved aeration since prior exam. Cardiomegaly versus pericardial effusion. Electronically signed by: Zay Calixto MD 08/24/2024 12:00 PM EDT
--- OUTSIDE RECORDS SUMMARY | 2024-08-24 12:47 | XMS_ITS ---
Author Organization [facility] Address [address] [place] [address] Care Team Providers Care Manufactured Buildings Supervisor Name Role Phone Miryam Tyson Unavailable [phone] Encounters Encounter Location Date Provider Diagnosis [facility] [address] [place] [address] 07/02/2024 Miryam Tyson Plan Of Treatment No Information Progress Notes * Farhan BEARDaDOB:1960 (64 yo F)Acc No.[id number]:07/02/2024 Progress Notes Patient:?Alix BEARD Provider:?Miryam Tyson DPM :1960???Age:64 Y???Sex:Female D ate:07/02/2024 Address:[address] [place], [place] [id number] Subjective: * Chief Complaints: * ??? * Medical History:? Objective: * Vitals:? Assessment: Plan: * Treatment: * Images: * The named appointment provid er may or may not be the originator of this progress note, and it is not deemed complete until electronically signed by the appointment provider. Sign off status: Pending * Provider:?Miryam Tyson DPM Date:? Generated for Michael santos/Chloe/Oraliaitting on:?08/24/2024 12:46 PM EDT
--- OUTSIDE RECORDS SUMMARY | 2024-08-24 12:47 | XMS_ITS | Encounter Summary ---
Author Organization [facility] Address [address] [place] [address] Phone Care Team Providers Care Coin Purse Framer Name Role Phone Marita Wetzel DO Primary Care Provider Unava ilable Encounter Details Date Type Department Care Team (Late st Contact Info) Description 10/17/2023 Documentation Only [facility] [address] [place] [address] [place], [place] [address] [place] [phone] Social History Tobacco Use Types Packs/Day Years [...] Care Team (Late st Contact Info) Description 09/16/2024 10:00 AM EDT Clinical Support [facility] V[facility] Access Center [address] [place] [address] 11/03/2024 12:30 PM EDT Scheduled Only [facility] V[facility] Access Center [address] [place] [address] documented as of this encounter Visit Diagnoses Not on filedocumented in this encounter Care Teams Coin Purse Framer Relationship Specialty Start Date End Date Marita Wetzel DO [address] [place] [address] PCP - General Family Medicine 11/14/22 documented as of this encounter
--- OUTSIDE RECORDS SUMMARY | 2024-08-24 12:47 | XMS_ITS | Encounter Summary ---
Author Organization [facility] Address [address] [place] [address] Phone Care Team Providers Care Tunnel Miner Name Role Phone Marita Wetzel DO Primary Care Provider Unava ilable Encounter Details Date Type Department Care Team (Late st Contact Info) Description 10/24/2023 Documentation Only [facility] [address] [place] [address] [place], [place] [address] [place] [phone] Social History Tobacco Use Types Packs/Day Years [...] Support [facility] Vascular Access Center [address] [place] [address] 11/03/2024 12:30 PM EDT Scheduled Only [facility] Vascular Access [place] [address] [place] [address] documented as of this encounter Visit Diagnoses Not on filedocumented in this encounter Care Teams Tunnel Miner Relationship Specialty Start Date End Date Marita Wetzel DO [address] [place] [address] PCP - General Family Medicine 11/14/22 documented as of this encounter
--- OUTSIDE RECORDS SUMMARY | 2024-08-24 12:47 | XMS_ITS | Encounter Summary ---
Author Organization [facility] Address [address] [place] [address] Phone Care Team Providers Care Helper/Driver Name Role Phone Marita Wetzel DO Primary Care Provider Unava ilable Encounter Details Date Type Department Care Team (Late st Contact Info) Description 04/18/2023 Documentation Only [facility] [address] [place] [phone] Jerod Adames DO [address] [place] [address] [place] [phone] Social History Tobacco Use Types Packs/Day Years [...] Support [facility] Vascular Access Center [address] [place] [address] 11/03/2024 12:30 PM EDT Scheduled Only [facility] Vascular Access [place] [address] [place] [address] documented as of this encounter Visit Diagnoses Not on filedocumented in this encounter Care Teams Helper/Driver Relationship Specialty Start Date End Date Marita Wetzel DO [address] [place] [address] PCP - General Family Medicine 11/14/22 documented as of this encounter
--- OUTSIDE RECORDS SUMMARY | 2024-08-24 12:47 | XMS_ITS ---
Author Organization [facility] Address [address] [place] [address] Care Team Providers Care Pretzel Packer Name Role Phone Miryam Tyson Unavailable [phone] REASON FOR VISIT RN IMAGING Encounters Encounter Location Date Provider Diagnosis [facility] [address] [place] [address] 04/22/2024 Miryam Tyson Plan Of Treatment No Information Progress Notes * Chris BEARDB:1960 (63 yo F)Acc No.[id number]:04/22/2024 Patient:?Alix BEARD :1960???Age:63 Y???Sex:Female Address:[address] [place] [address], [address] * true * Date:? Generated for Michael santos/Chloe/eTransmitting on:?08/24/2024 12:47 PM EDT
--- OUTSIDE RECORDS SUMMARY | 2024-08-24 12:47 | XMS_ITS | Encounter Summary ---
Author Organization [facility] Address [address] [place] [address] Phone Care Team Providers Care Laboratory Clerk Name Role Phone Marita Wetzel DO Primary Care Provider Unava ilable Encounter Details Date Type Department Care Team (Late st Contact Info) Description 05/20/2023 Documentation Only [facility] [address] [place] [address] [place], [place], [place] [address] [place] [address] Social History Tobacco Use Types Packs/Day Years [...] Support [facility] Vascular Access Center [address] [facility] [address] 11/03/2024 12:30 PM EDT Scheduled Only [facility] Vascular Access [place] [address] [facility] [place] [phone] documented as of this encounter Visit Diagnoses Not on filedocumented in this encounter Care Teams Laboratory Clerk Relationship Specialty Start Date End Date Marita Wetzel DO [address] [place] [address] PCP - General Family Medicine 11/14/22 documented as of this encounter
--- OUTSIDE RECORDS SUMMARY | 2024-08-24 12:47 | XMS_ITS | Encounter Summary ---
Author Organization [facility] Address [place] [place] [address] Phone Care Team Providers Care Electromechanical Equipment Assembler Name Role Phone Fouzia Wetzelfer Primary Care Provider Unava ilable Encounter Details Date Type Department Care Team (Late st Contact Info) Description 10/03/2023 Documentation Only [facility] [address] [place] [phone] Srinivas Agrawal MD [address] [place] [address] [place] [address] Social History Tobacco Use Types [...] Support [facility] Vascular Access [address] [place] [address] 11/03/2024 12:30 PM EDT Scheduled Only [facility] Vascular Access [address] [place] [address] documented as of this encounter Visit Diagnoses Not on filedocumented in this encounter Care Teams Electromechanical Equipment Assembler Relationship Specialty Start Date End Date Marita Wetzel DO [address] [place] [address] PCP - General Family Medicine 11/14/22 documented as of this encounter
--- OUTSIDE RECORDS SUMMARY | 2024-08-24 12:47 | XMS_ITS | Encounter Summary ---
Author Organization [facility] Address [address] [place] [address] Phone Care Team Providers Care Cell Stripper Final Name Role Phone Marita Wetzel DO Primary Care Provider Unava ilable Encounter Details Date Type Department Care Team (Late st Contact Info) Description 05/01/2023 Documentation Only [facility] [address] [place] [address] [place], [place] [address] [place] [phone] Social History Tobacco Use Types Packs/Day Years [...] Support [facility] Vascular Access Center [address] [place] [phone] 11/03/2024 12:30 PM EDT Scheduled Only [facility] Vascular Access [place] [address] [place] [address] Scheduled Orders Name Type Priority Associated Diagnoses [...] Primary documented in this encounter Care Teams Cell Stripper Final Relationship Specialty Start Date End Date Marita Wetzel DO [address] [place] [address] PCP - General Family Medicine 11/14/22 documented as of this encounter
--- OUTSIDE RECORDS SUMMARY | 2024-08-24 12:47 | XMS_ITS | Encounter Summary ---
Author Organization [employer] Address [address] [facility] [address] [place] [address] Care Team Providers Care Petrol Tanker Driver Name Role Phone Marita Wetzel DO Primary Care Provider + [phone] Reason for Visit * Reason Onset Date Comments No Show 08/20/2024 Encounter Details Date Type Department Care Team ([facility] st Contact Info) Description 08/20/2024 Telephone [facility] MEDICINE [address] [place] [address] Marita Wetzel DO [address] [place], [place] [phone] No Show Social History Tobacco Use Types Packs/Day Years [...] encounter Miscellaneous Notes * Telephone Encounter - Rachael Deshpande - 08/20/2024 10:29 AM EDT Pt no showed to appt on 08/20/24 documented in this encounter Plan of Treatment [...] documented as of this encounter Care Teams Petrol Tanker Driver Relationship Specialty Start Date End Date Marita Wetzel DO [address] [place] [address] PCP - General Family Medicine 04/21/18 [facility] 05/22/24 documented as of this encounter
--- OUTSIDE RECORDS SUMMARY | 2024-08-24 12:47 | XMS_ITS | Encounter Summary ---
Author Organization [facility] Address [address] [place] [address] Phone Care Team Providers Care Oil Well Directional Surveyor Name Role Phone Marita Wetzel DO Primary Care Provider Unava ilable Encounter Details Date Type Department Care Team (Late st Contact Info) Description 10/06/2023 Documentation Only [facility] [address] [place] [phone] [place], [place], [place] [address] [place] [phone] Social History Tobacco Use Types Packs/Day Years [...] [facility] Vascular Access Center [address] [place] [phone] 11/03/2024 12:30 PM EDT Scheduled Only [facility] Vascular Access [place] [address] [place] [address] documented as of this encounter Visit Diagnoses Not on filedocumented in this encounter Care Teams Oil Well Directional Surveyor Relationship Specialty Start Date End Date Marita Wetezl DO [address] [place] [address] PCP - General Family Medicine 11/14/22 documented as of this encounter
--- OUTSIDE RECORDS SUMMARY | 2024-08-24 12:47 | XMS_ITS | Patient Health Record ---
Author Organization [facility] Address [address] [place] [address] Care Team Providers Care Extrusion Press Adjuster Name Role Phone FiorellasylwiaMiryam Unavailable [phone] Reason For Referral No Information Encounters Encounter Location Date Provider Diagnosis [facility] [address] [place] [address] 04/22/2024 Miryam Tyson [facility] [address] [place] [address] 06/17/2024 Miryam Tyson Plan Of Treatment No Information Insurance Providers Payer Name Payer Address Payer Phone Subscriber Number Group Number Insured Name Patient Relationship to Insured Coverage Start Date Coverage End Date Medicare National [facility] [address] [place] [address] [id number] Alix Sharp Self - patient is the insured for Life [address] [place] [phone] [id number] Alix Sharp Self - patient is the insured
--- OUTSIDE RECORDS SUMMARY | 2024-08-24 12:47 | XMS_ITS | Encounter Summary ---
Author Organization [employer] Address [address] [place] [address] Care Team Providers Care Rural Electrification Engineer Name Role Phone Damari Marita Primary Care Provider + [phone] Encounter Details Date Type Department Care Team (Late st Contact Info) Description 08/24/2024 Orders Only [facility] External Provider, [facility] Social History Tobacco Use Types Packs/Day Years [...] as directed Result Component No Carmen Becker PharmSalvatore Note: Use CGM, ensuring sensor is scanned at least once every 8 hours to capture 24H data. Check BG manually, as directed. documented as of this encounter Procedures Procedure Name Priority Date/Time Associated Diagnosis Comments XR CHEST 2 VIEWS Routine 08/24/2024 11:3 9 AM EDT documented in this encounter Results * XR Chest 2 Views (08/24/2024 11:39 AM EDT) Anatomical Region Laterality Modality Chest Radiographic Lily ging 08/24/2024 11:3 9 AM EDT Narrative 08/24/2024 12:03 PM EDT ? [facility] ?[address] ?[place] [address] ?XRay Report ? Signed ? Patient: West,Alix B ?MR#: [id number] ?? 43 ? : 1960 ?Acct:[id number] ? Age/Sex: 64 / F ?ADM Date: 05/06/25 ? Loc: HO.XRAY ? Attending Dr: KIM VILLANUEVA MD ? Ordering Physician: Kim Villanueva MD ?? Date of Service: 08/24/24 ?? Procedure(s): XR chest 2V ?? Accession Number(s): [id number] ? cc: Kim Villanueva MD; Marita Wetzel DO ? EXAMINATION: ?? XR CHEST ? CLINICAL INFORMATION: ?? A43.9 - Nocardiosis, unspecified ? COMPARISON: ?? July 07, 2024. ? TECHNIQUE: ?? 2 views of the chest were obtained. ? FINDINGS: ?? Meniscal shaped opacity right lower hemithorax. Pulmonary reticular ?? pattern. Patchy opacities, right lung. ?? No pneumothorax. ?? Cardiomediastinal silhouette size is prominent, unchanged. ?? Right-sided Port-A-Cath remains at the [facility]. ?? Calcified plaque aortic arch. ?? Multilevel mild thoracic and upper lumbar spondylosis. ? XR/XR chest 2V ?? IMPRESSION: ?? Airspace disease, right lung and moderate to large volume right-sided ?? pleural effusion. Right-sided empyema versus loculated effusion cannot ?? be excluded.. Overall slight improved aeration since prior exam. ?? Cardiomegaly versus pericardial effusion. ? Electronically signed by: ??Zay Calixto MD ??08/24/2024 12:00 PM ?? EDT ? Dictated By: ?Zay Urena MD ? Signed By: ?<Electronically signed by Zay Holloway MD in OV> ? 08/24/24 1200 ? DD/ 1139 ? TD/TT: 08/24/24 1149 ? Director Diabetes: ? Procedure Note Delvis Grant - 08/24/[address] [address] XRay Report Signed Patient: Alix Sharp BMR#: [id number] 43 : 1960cct:[id number] Age/Sex: 64 / FADM Date: 08/24/24 Loc: HO.JANIE Attending Dr: KIM VILLANUEVA MD Ordering Physician: Kim Villanueva MD Date of Service: 08/24/24 Procedure(s): XR chest 2V Accession Number(s): [id number] cc: Kim Villanueva MD; Marita Wetzel DO EXAMINATION: XR CHEST CLINICAL INFORMATION: A43.9 - Nocardiosis, unspecified COMPARISON: July 07, 2024. TECHNIQUE: 2 views of the chest were obtained. FINDINGS: Meniscal shaped opacity right lower hemithorax. Pulmonary reticular pattern. Patchy opacities, right lung. No pneumothorax. Cardiomediastinal silhouette size is prominent, unchanged. Right-sided Port-A-Cath remains at the [facility]. Calcified plaque aortic arch. Multilevel mild thoracic and upper lumbar spondylosis. XR/XR chest 2V IMPRESSION: Airspace disease, right lung and moderate to large volume right-sided pleural effusion. Right-sided empyema versus loculated effusion cannot be excluded.. Overall slight improved aeration since prior exam. Cardiomegaly versus pericardial effusion. Electronically signed by: Zay Calixto MD 08/24/2024 12:00 PM EDT RP Dictated By: Zay Urena MD Signed By: <Electronically signed by Zay Holloway MDin OV> 08/24/24 1200 DD/ 1139 TD/TT: 08/24/24 1149 Director Diabetes: [facility] External Provider IMG XR PROCEDURES Final Result documented in this encounter Visit Diagnoses Not on filedocumented in this encounter Additional Health Concerns Assessment Noted Time PHQ-9 Depression Total Score: 0 10/09/19 23 9:31 AM EDT documented as of this encounter Care Teams Rural Electrification Engineer Relationship Specialty Start Date End Date Marita Wetzel DO [address] [place] [address] PCP - General Family Medicine 04/21/18 [facility] 05/22/24 documented as of this encounter
--- OUTSIDE RECORDS SUMMARY | 2024-08-24 12:48 | XMS_ITS | Encounter Summary ---
Author Organization [facility] Address [address] [place] [address] Phone Care Team Providers Care Press Operator Automatic Name Role Phone Marita Wetzel DO Primary Care Provider Unava ilable Encounter Details Date Type Department Care Team (Late st Contact Info) Description 12/09/2022 Documentation Only [facility] [address] [place] [phone] Candace Adam PA Social History Tobacco Use [...] Department Care Team (Late Contact Info) Description 09/16/2024 10:00 AM EDT Clinical Support [facility] Vascular Access Center [address] [place] [address] 11/03/2024 12:30 PM EDT Scheduled Only [facility] Vascular Access [place] [address] [place] [address] documented as of this encounter Visit Diagnoses Not on filedocumented in this encounter Care Teams Press Operator Automatic Relationship Specialty Start Date End Date Marita Wetzel DO [address] [place] [address] PCP - General Family Medicine 11/14/22 documented as of this encounter
--- OUTSIDE RECORDS SUMMARY | 2024-08-24 12:48 | XMS_ITS | Encounter Summary ---
Author Organization [facility] Address [address] [place] [address] Care Team Providers Care Private Equity Analyst Name Role Phone Marita Wetzel DO Primary Care Provider +1- [phone] Encounter Details Date Type Department Care Team (Late st Contact Info) Description 05/15/2024 Lab Requisition [facility] - Main Lab [address] [facility] [place] [phone] Marily Gordillo MD [address] [place] [phone] Chronic embolism and thrombosis of unspecified vein; Acute kidney failure, unspecified (CMS/HCC V24) Social History Tobacco Use Types Packs/Day Years [...] of unspecified vein Acute kidney failure, unspecified (CMS/HCC V24) Acute kidney failure, unspecified documented in this encounter Care Teams Private Equity Analyst Relationship Specialty Start Date End Date Marita Wetzel DO [address] [place], [place] PCP - General 01/09/23 documented as of this encounter
--- OUTSIDE RECORDS SUMMARY | 2024-08-24 12:48 | XMS_ITS | Encounter Summary ---
Author Organization [facility] Address [address] [place] [address] Care Team Providers Care Childcare Worker Name Role Phone Marita Wetzel DO Primary Care Provider +1- [phone] Encounter Details Date Type Department Care Team (Late st Contact Info) Description 04/29/2024 Lab Requisition [facility] - Main Lab [address] [facility] [place] [phone] Marily Gordillo MD [address] [place] [phone] Chronic embolism and thrombosis of unspecified vein; [...] unspecified documented in this encounter Care Teams Childcare Worker Relationship Specialty Start Date End Date Marita Wetzel DO [address] [place], [place] PCP - General 01/09/23 documented as of this encounter
--- OUTSIDE RECORDS SUMMARY | 2024-08-24 12:48 | XMS_ITS | Encounter Summary ---
Author Organization [facility] Address [address] [place] [address] Care Team Providers Care Skirt Panel Assembler Name Role Phone Marita Wetzel Primary Care Provider +1- [phone] Encounter Details Date Type Department Care Team (Late st Contact Info) Description 04/30/2024 Lab Requisition [facility] - Main Lab [address] [place] [phone] Marily Gordillo MD [address] [place] [address] Chronic embolism and thrombosis of [...] LAB CHEMISTRY METHOD 05/03/2024 10:39 AM EST [facility] Potassium 5.1 3.5 - 5.5 [...] Final Resul t [facility] [place] ([facility]) [facility] [address] [place] [address], * Tacrolimus level (05/03/2024 6:09 AM EST) [...] and the performance characteristics determined by [facility]. This confirmation testing has not been cleared or approved by the FDA. The laboratory is regulated under CLIA as qualified to perform high-complexity testing. This test is used for patient testing purposes. It should not be regarded as investigational or for research. Test performed at [facility], [address], [place], [place] ??[address] ? [phone] Ashtyn Leigh MD, PhD - Unmanned Equipment Operator Blood Venous blood specimen / Unknown Venipuncture / Unknown 05/03/2024 6:09 AM EST 05/03/2024 9:28 AM EST us Marily Gordillo MD LAB BLOOD ORDERABLES Final Resul t [facility] [address] [place] [address] documented in this encounter Visit Diagnoses Diagnosis Chronic embolism and thrombosis of unspecified vein Acute kidney failure, unspecified (CMS/HCC V24) Acute kidney failure, unspecified documented in this encounter Care Teams Skirt Panel Assembler Relationship Specialty Start Date End Date Marita Wetzel DO [address] [place] [address] PCP - General 01/09/23 documented as of this encounter
--- OUTSIDE RECORDS SUMMARY | 2024-08-24 12:48 | XMS_ITS | Encounter Summary ---
Author Organization [facility] Address [address] [place] [address] Care Team Providers Care Air Force Senior Officer Name Role Phone Marita Wetzel DO Primary Care Provider +1- [phone] Encounter Details Date Type Department Care Team (Late st Contact Info) Description 2024 Lab Requisition [facility] - Main Lab [address] [facility] [employer] [place] [phone] Marily Gordillo MD [address] [place] [address] Chronic kidney disease, unspecified; Anemia, [...] unspecified documented in this encounter Care Teams Air Force Senior Officer Relationship Specialty Start Date End Date Marita Wetzel DO [address] [place] [address] PCP - General 01/09/23 documented as of this encounter
--- OUTSIDE RECORDS SUMMARY | 2024-08-24 12:48 | XMS_ITS ---
Author Organization [facility] Address [address] [place] [address] Care Team Providers Care Steam Shovel Operator Name Role Phone Miryam Tyson Unavailable [phone] REASON FOR VISIT Cancel Encounters Encounter Location Date Provider Diagnosis [facility] [address] [place] [address] 06/17/2024 Miryam Tyson Plan Of Treatment No Information Progress Notes * Chris BEARDB:1960 (64 yo F)Acc No.[id number]:06/17/2024 Patient:?Alix BEARD :1960???Age:64 Y???Sex:Female Address:[address] [place] [address], [address] * true * Date:? Generated for Binui danielle/Chloe/eTransmitting on:?08/24/2024 12:47 PM EDT
--- OUTSIDE RECORDS SUMMARY | 2024-08-24 12:48 | XMS_ITS | Encounter Summary ---
Author Organization [facility] Address [address] [place] [address] Phone Care Team Providers Care Meat Department Manager Name Role Phone Marita Wetzel DO Primary Care Provider Unava ilable Encounter Details Date Type Department Care Team (Late st Contact Info) Description 06/14/2022 Documentation Only [facility] [address] [place] [phone] Cadnace Adam PA Social History Tobacco Use Types [...] [facility] Vascular Access Center [address] [place] [address] 11/03/2024 12:30 PM EDT Scheduled Only [facility] Vascular Access [address] [place] [phone] documented as of this encounter Visit Diagnoses Not on filedocumented in this encounter Care Teams Meat Department Manager Relationship Specialty Start Date End Date Marita Wetzel DO [address] [place] [address] PCP - General Family Medicine 11/14/22 documented as of this encounter
--- OUTSIDE RECORDS SUMMARY | 2024-08-24 12:48 | XMS_ITS | Encounter Summary ---
Author Organization [facility] Address [address] [place] [address] Phone Care Team Providers Care Manager Financial Systems Name Role Phone Marita Wetzel DO Primary Care Provider Unava ilable Encounter Details Date Type Department Care Team (Late st Contact Info) Description 08/27/2023 Documentation Only [facility] [address] [place] [phone] [place], [place], [place] [address] [place] [phone] Social History Tobacco Use Types Packs/Day Years [...] [facility] [address] [place] [phone] 11/03/2024 12:30 PM EDT Scheduled Only [facility] Access [place] [address] [place] [address] documented as of this encounter Visit Diagnoses Not on filedocumented in this encounter Care Teams Manager Financial Systems Relationship Specialty Start Date End Date Marita Wetzel DO [address] [place] [address] PCP - General Family Medicine 11/14/22 documented as of this encounter
--- OUTSIDE RECORDS SUMMARY | 2024-08-24 12:48 | XMS_ITS | Encounter Summary ---
Author Organization [facility] Address [address] [place] [address] Phone Care Team Providers Care Naval Aircrewman Tactical Helicopter Name Role Phone Marita Wetzel DO Primary Care Provider Unava ilable Reason for Visit * Reason Comments Med Refill Encounter Details Date Type Department Care Team (Late Contact Info) Description 12/06/2020 Refill [facility] [address] [place] [phone] Bernardo Doty MD [address] [place] [phone] Social History Tobacco Use Types Packs/Day Years [...] Support [facility] Vascular Access Center [address] [place] [address] 11/03/2024 12:30 PM EDT Scheduled Only [facility] Vascular Access Center [address] [place] [address] documented as of this encounter Visit Diagnoses Not on filedocumented in this encounter Care Teams Naval Aircrewman Tactical Helicopter Relationship Specialty Start Date End Date Marita Wetzel DO [address] [place] [address] PCP - General Family Medicine 11/14/22 documented as of this encounter
--- OUTSIDE RECORDS SUMMARY | 2024-08-24 12:48 | XMS_ITS | Encounter Summary ---
Author Organization [facility] Address [address] [place] [address] Phone Care Team Providers Care Business And Services Instructor Name Role Phone Marita Wetzel DO Primary Care Provider Unava ilable Encounter Details Date Type Department Care Team (Late st Contact Info) Description 08/11/2023 Documentation Only [facility] [address] [place] [address] [place], [place], [place] [address] [place] [phone] Social History Tobacco Use Types Packs/Day Years [...] Support [facility] Vascular Access Center [address] [place] [address] 11/03/2024 12:30 PM EDT Scheduled Only [facility] Vascular Access [place] [address] [place] [place] [address] documented as of this encounter Visit Diagnoses Not on filedocumented in this encounter Care Teams Business And Services Instructor Relationship Specialty Start Date End Date Marita Wetzel DO [address] [place] [address] PCP - General Family Medicine 11/14/22 documented as of this encounter
--- OUTSIDE RECORDS SUMMARY | 2024-08-24 12:48 | XMS_ITS | Encounter Summary ---
Author Organization [facility] Address [address] [place] [address] Care Team Providers Care Quill Skinner Name Role Phone Marita Wetzel Primary Care Provider +1- [phone] Encounter Details Date Type Department Care Team (Late st Contact Info) Description 04/23/2024 Lab Requisition [facility] - Main Lab [address] [place] [phone] Marily Gordillo MD [address] [place] [address] Chronic embolism and thrombosis of [...] LAB CHEMISTRY METHOD 04/26/2024 9:11 AM EST [facility] Potassium 3.4(L) 3.5 - 5.5 mmol/L LAB CHEMISTRY METHOD 04/26/2024 9:11 AM EST [facility] Chloride 109 96 - 110 mmol/L LAB CHEMISTRY METHOD 04/26/2024 9:11 AM [facility] CO2 27 21 - 32 mmol/L LAB CHEMISTRY METHOD 04/26/2024 9:11 AM [facility] Anion Gap 7 3 - 11 LAB CHEMISTRY METHOD 04/26/2024 9:11 AM [facility] Glucose 80 70 - 100 mg/dL LAB CHEMISTRY METHOD 04/26/2024 9:11 AM [facility] BUN 29(H) 5 - 25 mg/dL LAB CHEMISTRY METHOD 04/26/2024 9:11 AM [facility] Creatinine 3.36(H) 0.50 - 1.10 mg/dL LAB CHEMISTRY METHOD 04/26/2024 9:11 AM [facility] eGFR 15(L) >=60 mL/min/1. 73m2 LAB CHEMISTRY METHOD 04/26/2024 9:11 AM [facility] Comment:Calculation based on the??Chronic Kidney Disease Epidemiology Collaboration (CKD-EPI) equation refit??without adjustment for race. BUN/Creatinine Ratio 8.6 LAB CHEMISTRY METHOD 04/26/2024 9:11 AM [facility] Albumin 2.1(L) 3.2 - 5.0 g/dL LAB CHEMISTRY METHOD 04/26/2024 9:11 AM [facility] Calcium 8.7 8.5 - 10.5 mg/dL LAB CHEMISTRY METHOD 04/26/2024 9:11 AM [facility] Phosphorus 2.5 2.5 - 4.5 mg/dL LAB CHEMISTRY METHOD 04/26/2024 9:11 AM [facility] Blood Venous blood specimen / Unknown Venipuncture / Unknown 04/26/2024 6:18 AM EST 04/26/2024 8:28 AM EST Marily Gordillo MD LAB BLOOD ORDERABLES Final Resul t [facility] [address] [place] [address], documented in this encounter Visit Diagnoses Diagnosis Chronic embolism and thrombosis of unspecified vein Acute kidney failure, unspecified (CMS/HCC V24) Acute kidney failure, unspecified documented in this encounter Care Teams Quill Skinner Relationship Specialty Start Date End Date Marita Wetzel DO [address] [place] [address] PCP - General 01/09/23 documented as of this encounter
--- OUTSIDE RECORDS SUMMARY | 2024-08-24 12:48 | XMS_ITS | Encounter Summary ---
Author Organization [facility] Address [address] [place] [address] Care Team Providers Care Strategic Marketing Associate Name Role Phone Marita Wetzel DO Primary Care Provider +1- [phone] Encounter Details Date Type Department Care Team (Late st Contact Info) Description 05/30/2024 Lab Requisition [facility] - Main Lab [address] [facility] [place] [phone] Marily Gordillo MD [address] [place] [phone] Chronic embolism and thrombosis of unspecified vein; [...] unspecified documented in this encounter Care Teams Strategic Marketing Associate Relationship Specialty Start Date End Date Marita Wetzel DO [address] [place], [place] PCP - General 01/09/23 documented as of this encounter
--- OUTSIDE RECORDS SUMMARY | 2024-08-24 12:48 | XMS_ITS | Encounter Summary ---
Author Organization [facility] Address [address] [place] [address] Phone Care Team Providers Care Resident Care Technician Name Role Phone Marita Wetzel DO Primary Care Provider Unava ilable Encounter Details Date Type Department Care Team (Late st Contact Info) Description 01/21/2024 Documentation Only [facility] [address] [place] [phone] Pauline Aguayo [address] [place] [phone] Social History Tobacco Use Types Packs/Day Years [...] [facility] Vascular Access Center [address] [place] [address] [place] [phone] 11/03/2024 12:30 PM EDT Scheduled Only [facility] Vascular Access [place] [address] [place] [address] documented as of this encounter Visit Diagnoses Not on filedocumented in this encounter Care Teams Resident Care Technician Relationship Specialty Start Date End Date Marita Wetzel DO [address] [place] [address] PCP - General Family Medicine 11/14/22 documented as of this encounter
--- OUTSIDE RECORDS SUMMARY | 2024-08-24 12:48 | XMS_ITS | Encounter Summary ---
Author Organization [facility] Address [address] [place] [address] Care Team Providers Care Pathologist Name Role Phone Marita Wetzel DO Primary Care Provider +1- [phone] Encounter Details Date Type Department Care Team (Late st Contact Info) Description 05/21/2024 Lab Requisition [facility] - Main Lab [address] [facility] [place] [phone] Marily Gordillo MD [address] [place] [phone] Chronic embolism and thrombosis of unspecified vein; [...] unspecified documented in this encounter Care Teams Pathologist Relationship Specialty Start Date End Date Marita Wetzel DO [address] [place], [place] PCP - General 01/09/23 documented as of this encounter
--- OUTSIDE RECORDS SUMMARY | 2024-08-24 12:48 | XMS_ITS | Encounter Summary ---
Author Organization [facility] Address [address] [place] [address] Phone Care Team Providers Care Conveyor Belt Installer Name Role Phone Marita Wetzel DO Primary Care Provider Unava ilable Encounter Details Date Type Department Care Team (Late st Contact Info) Description 06/25/2022 Documentation Only [facility] [address] [place] [phone] Pauline Aguayo [address] [place] [phone] Social History Tobacco Use Types Packs/Day Years [...] Support [facility] Vascular Access Center [address] [place] [phone] 11/03/2024 12:30 PM EDT Scheduled Only [facility] Vascular Access Center [address] [place] [address] documented as of this encounter Visit Diagnoses Not on filedocumented in this encounter Care Teams Conveyor Belt Installer Relationship Specialty Start Date End Date Marita Wetzel DO [address] [place] [address] PCP - General Family Medicine 11/14/22 documented as of this encounter
--- OUTSIDE RECORDS SUMMARY | 2024-08-24 12:48 | XMS_ITS | Encounter Summary ---
Author Organization [facility] [employer] Address [address] [place] [address] Phone Care Team Providers Care Molding Utility Worker Name Role Phone Marita Wetzel DO Primary Care Provider Unava ilable Encounter Details Date Type Department Care Team (Late st Contact Info) Description 09/12/2023 Documentation Only [facility] [address] [place] [phone] [place], [place], [place] [address] [place] [phone] Social History Tobacco Use Types Packs/Day Years [...] Support [facility] [address] [place] [phone] 11/03/2024 12:30 PM EDT Scheduled Only [facility] [place] [address] [place] [phone] documented as of this encounter Visit Diagnoses Not on filedocumented in this encounter Care Teams Molding Utility Worker Relationship Specialty Start Date End Date Marita Wetzel DO [address] [place] [address] PCP - General Family Medicine 11/14/22 documented as of this encounter
--- OUTSIDE RECORDS SUMMARY | 2024-08-24 12:48 | XMS_ITS | Encounter Summary ---
Author Organization [facility] Address [address] [place] [address] Phone Care Team Providers Care Industrial Energy Engineer Name Role Phone Marita Wetzel DO Primary Care Provider Unava ilable Encounter Details Date Type Department Care Team (Late st Contact Info) Description 12/31/2022 Documentation Only [facility] [address] [place] [phone] Candace Adam PA Social History Tobacco Use [...] Support [facility] [address] [place] [address] 11/03/2024 12:30 PM EDT Scheduled Only [facility] Access [place] [address] [place] [phone] documented as of this encounter Visit Diagnoses Not on filedocumented in this encounter Care Teams Industrial Energy Engineer Relationship Specialty Start Date End Date Marita Wetzel DO [address] [place] [address] PCP - General Family Medicine 11/14/22 documented as of this encounter
--- OUTSIDE RECORDS SUMMARY | 2024-08-24 12:48 | XMS_ITS | Encounter Summary ---
Author Organization [facility] Address [address] [place] [address] Care Team Providers Care Sorter Operator Name Role Phone Marita Wetzel Primary Care Provider [phone]- [phone] Encounter Details Date Type Department Care Team (Late st Contact Info) Description 04/30/2024 Lab Requisition [facility] - Main Lab [address] [place] [phone] Mraily Gordillo MD [address] [place] [phone] Anemia, unspecified; Chronic embolism and thrombosis of [...] LAB CHEMISTRY METHOD 05/03/2024 10:59 AM EST [facility] Blood Venous blood specimen / Unknown Venipuncture / Unknown 05/03/2024 6:09 AM EST 05/03/2024 9:29 AM EST Marily Gordillo MD LAB BLOOD ORDERABLES Final Resul t Performing Organization Address [facility]/ZIP Co de Phone Number [facility] [address] [place] [address], [place] [phone] * (ABNORMAL) Ferritin (05/03/2024 6:09 AM EST) Ferritin 2,737(H) 8 - 252 ng/mL LAB CHEMISTRY METHOD 05/03/2024 10:59 AM EST [facility] Blood Venous blood specimen / Unknown Venipuncture / Unknown 05/03/2024 6:09 AM EST 05/03/2024 9:29 AM EST us Marily Gordillo MD LAB BLOOD ORDERABLES Final Resul t Performing Organization Address City/[facility]/ZIP Co de Phone Number [facility] [address] [place] [address], [place] [phone] documented in this encounter Visit Diagnoses Diagnosis Anemia, unspecified Chronic embolism and thrombosis of unspecified vein Acute kidney failure, unspecified (CMS/HCC V24) Acute kidney failure, unspecified documented in this encounter Care Teams Sorter Operator Relationship Specialty Start Date End Date Martia Wetzel DO [address] [place] [address] PCP - General 01/09/23 documented as of this encounter
--- OUTSIDE RECORDS SUMMARY | 2024-08-24 12:48 | XMS_ITS | Encounter Summary ---
Author Organization [employer] Address [address] [facility] 7t [place] [address] Care Team Providers Care Student Liaison Officer Name Role Phone Marita Wetzel DO Primary Care Provider [phone]- [phone] Carmen Becker PharmD Unavailable [phone] Encounter Details Date Type Department Care Team ([facility] st Contact Info) Description 04/29/2023 Telephone [facility] [address] [place] [address] Marita Wetzel DO [address] [place] [address] Social History Tobacco Use Types Packs/Day Years [...] documented as of this encounter Care Teams Student Liaison Officer Relationship Specialty Start Date End Date Marita Wetzel DO [address] [place] [address] PCP - General Family Medicine 04/21/18 Carmen Becker PharmD [address] [place] [address] Pharmacist Internal Medicine 07/21/23 01/21/24 [facility] [place] 05/22/24 documented as of this encounter
--- OUTSIDE RECORDS SUMMARY | 2024-08-24 12:48 | XMS_ITS | Encounter Summary ---
Author Organization [employer] Address [address] [facility] 7t [place] [address] Care Team Providers Care Secret Service Agent Name Role Phone Marita Wetzel DO Primary Care Provider [phone] Carmen Becker PharmD Unavailable [phone] Encounter Details Date Type Department Care Team (Late st Contact Info) Description 10/14/2022 Abstract [facility] MEDICINE [address] [place] [address] Marita Wetzel DO [address] [place] [address] Social History Tobacco Use Types Packs/Day Years [...] documented as of this encounter Care Teams Secret Service Agent Relationship Specialty Start Date End Date Marita Wetzel DO [address] [place] [address] PCP - General Family Medicine 04/21/18 Carmen Becker PharmD [address] [place] [address] Pharmacist Internal Medicine 07/21/23 01/21/24 [facility] 05/22/24 documented as of this encounter
--- OUTSIDE RECORDS SUMMARY | 2024-08-24 12:48 | XMS_ITS | Encounter Summary ---
Author Organization [facility] Address [address] [place] [address] Care Team Providers Care Asphalt Engineer Name Role Phone Marita Wetzel Primary Care Provider [phone]- [phone] Encounter Details Date Type Department Care Team (Late st Contact Info) Description 05/07/2024 Lab Requisition [facility] - Main Lab [address] [place] [phone] Marily Gordillo MD [address] [place] [address] Chronic embolism and thrombosis of [...] LAB CHEMISTRY METHOD 05/10/2024 11:45 AM EST [facility] Potassium 3.8 3.5 - 5.5 mmol/L LAB CHEMISTRY METHOD 05/10/2024 11:45 AM [facility] Chloride 96 96 - 110 mmol/L LAB CHEMISTRY METHOD 05/10/2024 11:45 AM [facility] CO2 28 21 - 32 mmol/L LAB CHEMISTRY METHOD 05/10/2024 11:45 AM [facility] Anion Gap 11 3 - 11 LAB CHEMISTRY METHOD 05/10/2024 11:45 AM [facility] Glucose 215(H) 70 - 100 mg/dL LAB CHEMISTRY METHOD 05/10/2024 11:45 AM [facility] BUN 45(H) 5 - 25 mg/dL LAB CHEMISTRY METHOD 05/10/2024 11:45 AM [facility] Creatinine 3.47(H) 0.50 - 1.10 mg/dL LAB CHEMISTRY METHOD 05/10/2024 11:45 AM [facility] eGFR 14(L) >=60 mL/min/1. 73m2 LAB CHEMISTRY METHOD 05/10/2024 11:45 AM [facility] Comment:Calculation based on the??Chronic Kidney Disease Epidemiology Collaboration (CKD-EPI) equation refit??without adjustment for race. BUN/Creatinine Ratio 13.0 LAB CHEMISTRY METHOD 05/10/2024 11:45 AM [facility] Albumin 1.7(L) 3.2 - 5.0 g/dL LAB CHEMISTRY METHOD 05/10/2024 11:45 AM [facility] Calcium 8.4(L) 8.5 - 10.5 mg/dL LAB CHEMISTRY METHOD 05/10/2024 11:45 AM [facility] Phosphorus 2.1(L) 2.5 - 4.5 mg/dL LAB CHEMISTRY METHOD 05/10/2024 11:45 AM [facility] Blood Venous blood specimen / Unknown Venipuncture / Unknown 05/10/2024 5:50 AM EST 05/10/2024 9:58 AM EST us Marily Gordillo MD LAB BLOOD ORDERABLES Final Resul t ABHILASH BENTLEY [place] ([facility] [address] [place] [address], * Tacrolimus level (05/10/2024 5:50 AM EST) [...] and the performance characteristics determined by [facility]. This confirmation testing has not been cleared or approved by the FDA. The laboratory is regulated under CLIA as qualified to perform high-complexity testing. This test is used for patient testing purposes. It should not be regarded as investigational or for research. Test performed at [facility], [address], [place], [place] ??[address] ? [phone] Ashtyn Leigh MD, PhD - Equal Opportunity Representative Blood Venous blood specimen / Unknown Venipuncture / Unknown 05/10/2024 5:50 AM EST 05/10/2024 9:58 AM EST us Marily Gordillo MD LAB BLOOD ORDERABLES Final Resul t [facility] [address] [place] [address] documented in this encounter Visit Diagnoses Diagnosis Chronic embolism and thrombosis of unspecified vein Acute kidney failure, unspecified (CMS/HCC V24) Acute kidney failure, unspecified documented in this encounter Care Teams Asphalt Engineer Relationship Specialty Start Date End Date Marita Wetzel DO [address] [place] [address] PCP - General 01/09/23 documented as of this encounter
--- OUTSIDE RECORDS SUMMARY | 2024-08-24 12:48 | XMS_ITS | Encounter Summary ---
Author Organization [facility] Address [address] [place] [address] Phone Care Team Providers Care Information Officer Name Role Phone Marita Wetzel DO Primary Care Provider Unava ilable Encounter Details Date Type Department Care Team (Late st Contact Info) Description 08/28/2023 Documentation Only [facility] Of [address] [place] [phone] [place], [place], [place] [address] [place] [phone] Social History Tobacco Use Types Packs/Day Years [...] Support [facility] Center [address] [place] [phone] 11/03/2024 12:30 PM EDT Scheduled Only [facility] Access [place] [address] [place] [phone] documented as of this encounter Visit Diagnoses Not on filedocumented in this encounter Care Teams Information Officer Relationship Specialty Start Date End Date Marita Wetzel DO [address] [place] [address] PCP - General Family Medicine 11/14/22 documented as of this encounter
--- OUTSIDE RECORDS SUMMARY | 2024-08-24 12:48 | XMS_ITS | Encounter Summary ---
Author Organization [facility] Address [address] [place] [address] Care Team Providers Care Jet Aircraft Servicer Name Role Phone Marita Wetzel Primary Care Provider [phone]- [phone] Encounter Details Date Type Department Care Team (Late st Contact Info) Description 04/20/2024 Lab Requisition [facility] - Main Lab [address] [place] [phone] Marily Gordillo MD [address] [place] [address] Chronic kidney disease, unspecified; Anemia, [...] LAB CHEMISTRY METHOD 04/22/2024 11:50 AM EST [facility] Potassium 3.5 3.5 - 5.5 mmol/L LAB CHEMISTRY METHOD 04/22/2024 11:50 AM [facility] Chloride 112(H) 96 - 110 mmol/L LAB CHEMISTRY METHOD 04/22/2024 11:50 AM [facility] CO2 23 21 - 32 mmol/L LAB CHEMISTRY METHOD 04/22/2024 11:50 AM [facility] Anion Gap 8 3 - 11 LAB CHEMISTRY METHOD 04/22/2024 11:50 AM [facility] Glucose 135(H) 70 - 100 mg/dL LAB CHEMISTRY METHOD 04/22/2024 11:50 AM [facility] BUN 43(H) 5 - 25 mg/dL LAB CHEMISTRY METHOD 04/22/2024 11:50 AM [facility] Creatinine 3.79(H) 0.50 - 1.10 mg/dL LAB CHEMISTRY METHOD 04/22/2024 11:50 AM [facility] eGFR 13(L) >=60 mL/min/1. 73m2 LAB CHEMISTRY METHOD 04/22/2024 11:50 AM [facility] Comment:Calculation based on the??Chronic Kidney Disease Epidemiology Collaboration (CKD-EPI) equation refit??without adjustment for race. BUN/Creatinine Ratio 11.3 LAB CHEMISTRY METHOD 04/22/2024 11:50 AM [facility] Calcium 8.6 8.5 - 10.5 mg/dL LAB CHEMISTRY METHOD 04/22/2024 11:50 AM [facility] AST (SGOT) 9(L) 10 - 42 unit/L LAB CHEMISTRY METHOD 04/22/2024 11:50 AM [facility] ALT (SGPT) 9(L) 10 - 60 unit/L LAB CHEMISTRY METHOD 04/22/2024 11:50 AM [facility] Alkaline Phosphatase 59 42 - 121 unit/L LAB CHEMISTRY METHOD 04/22/2024 11:50 AM [facility] Total Protein 5.8(L) 6.0 - 8.0 g/dL LAB CHEMISTRY METHOD 04/22/2024 11:50 AM [facility] Albumin 2.0(L) 3.2 - 5.0 g/dL LAB CHEMISTRY METHOD 04/22/2024 11:50 AM [facility] Total Bilirubin 0.3 0.0 - 1.4 mg/dL LAB CHEMISTRY METHOD 04/22/2024 11:50 AM [facility] Blood Venous blood specimen / Unknown Venipuncture / Unknown 04/22/2024 7:09 AM EST 04/22/2024 9:42 AM EST Marily Gordillo MD LAB BLOOD ORDERABLES Final Resul t [facility] [address] [place] [address], * (ABNORMAL) Complete blood count (04/22/2024 7:09 AM EST) Pathologist [facility] WBC 8.2 4.8 - 10.8 K/mcL LAB HEMETOLOGY METHOD 04/22/2024 10:44 AM [facility] RBC 2.80(L) 3.80 - 4.80 M/mcL LAB HEMETOLOGY METHOD 04/22/2024 10:44 AM [facility] Hemoglobin 7.8(L) 11.5 - 16.0 g/dL LAB HEMETOLOGY METHOD 04/22/2024 10:44 AM [facility] Hematocrit 27.7(L) 35.0 - 47.0 % LAB HEMETOLOGY METHOD 04/22/2024 10:44 AM [facility] MCV 97.5 79.0 - 98.0 FL LAB HEMETOLOGY METHOD 04/22/2024 10:44 AM [facility] MCH 27.5 27.0 - 32.0 pcg LAB HEMETOLOGY METHOD 04/22/2024 10:44 AM EST [facility] MCHC 28.2(L) 32.0 - 37.0 g/dL LAB HEMETOLOGY METHOD 04/22/2024 10:44 AM [facility] RDW 16.5(H) 11.0 - 15.0 % LAB HEMETOLOGY METHOD 04/22/2024 10:44 AM [facility] Platelets 189 130 - 400 K/mcL LAB HEMETOLOGY METHOD 04/22/2024 10:44 AM [facility] MPV 10.7 7.0 - 11.0 FL LAB HEMETOLOGY METHOD 04/22/2024 10:44 AM [facility] NRBC 0.0 <1.0 % LAB HEMETOLOGY METHOD 04/22/2024 10:44 AM [facility] NRBC Absolute 0.00 <0.10 K/mcL LAB HEMETOLOGY METHOD 04/22/2024 10:44 AM [facility] Blood Venous blood specimen / Unknown Venipuncture / Unknown 04/22/2024 7:09 AM EST 04/22/2024 9:43 AM EST us Marily Gordillo MD LAB BLOOD ORDERABLES Final Resul t [facility] [address] [place] [address], documented in this encounter Visit Diagnoses Diagnosis Chronic kidney disease, unspecified Anemia, unspecified documented in this encounter Care Teams Jet Aircraft Servicer Relationship Specialty Start Date End Date Marita Wetzel DO [address] [place] [address] PCP - General 01/09/23 documented as of this encounter
--- OUTSIDE RECORDS SUMMARY | 2024-08-24 12:48 | XMS_ITS | Encounter Summary ---
Author Organization [employer] Address [address] [place] [address] 7t [place] [address] Care Team Providers Care Grain Merchandiser Name Role Phone Marita Wetzel DO Primary Care Provider [phone]- [phone] Carmen Becker PharmD Unavailable [phone] Encounter Details Date Type Department Care Team (Late st Contact Info) Description 12/11/2022 Orders Only [facility] [address] [place] [address] Heather Nesbitt RN [address] [place] [address] Social History Tobacco Use Types Packs/Day Years [...] documented as of this encounter Care Teams Grain Merchandiser Relationship Specialty Start Date End Date Marita Wetzel DO [address] [place] [address] PCP - General Family Medicine 04/21/18 Carmen Becker PharmD [address] [place] [address] Pharmacist Internal Medicine 07/21/23 01/21/24 [facility] 05/22/24 documented as of this encounter
--- OUTSIDE RECORDS SUMMARY | 2024-08-24 12:48 | XMS_ITS | Encounter Summary ---
Author Organization [employer] Address [address] [facility] 7t [place] [address] Care Team Providers Care Electric Motor Repairman Name Role Phone Marita Wetzel DO Primary Care Provider [phone]- [phone] Carmen Becker PharmD Unavailable [phone] Reason for Visit * Reason Onset Date Comments Prior Authorization 04/25/2023 [employer] Encounter Details Date Type Department Care Team ([facility] st Contact Info) Description 04/25/2023 Telephone [facility] MEDICINE [address] [place] [address] Marita Wetzel DO [address] [place] [address] Prior Authorization ([employer]) Social History Tobacco [...] documented as of this encounter Care Teams Electric Motor Repairman Relationship Specialty Start Date End Date Marita Wetzel DO [address] [place] [address] PCP - General Family Medicine 04/21/18 Carmen Becker, PharmD [address] [place] [address] Pharmacist Internal Medicine 07/21/23 01/21/24 [facility] 05/22/24 documented as of this encounter
--- OUTSIDE RECORDS SUMMARY | 2024-08-24 12:48 | XMS_ITS | Encounter Summary ---
Author Organization [facility] Address [address] [place] [address] Phone Care Team Providers Care Senior It Security Analyst Name Role Phone Marita Wetzel DO Primary Care Provider Unava ilable Encounter Details Date Type Department Care Team (Late st Contact Info) Description 07/04/2023 Documentation Only [facility] [address] [place] [phone] Pauline Aguayo [address] [place] [phone] Social History Tobacco Use Types Packs/Day Years [...] Support [facility] Center [address] [place] [place] [phone] 11/03/2024 12:30 PM EDT Scheduled Only [facility] [address] [place] [place] [phone] documented as of this encounter Visit Diagnoses Not on filedocumented in this encounter Care Teams Senior It Security Analyst Relationship Specialty Start Date End Date Marita Wetzel DO [address] [place] [address] PCP - General Family Medicine 11/14/22 documented as of this encounter
--- OUTSIDE RECORDS SUMMARY | 2024-08-24 12:48 | XMS_ITS | Encounter Summary ---
Author Organization [facility] [place], Address [address] [facility] [address] Phone Care Team Providers Care Undergraduate Internship Name Role Phone Marita Wetzel DO Primary Care Provider Unava ilable Reason for Visit * Reason Comments Med Refill Encounter Details Date Type Department Care Team (Late Contact Info) Description 06/30/2024 Refill [facility] [place] [address] [place] [address] Srinivas Agrawal MD [address] [facility] [place] [phone] Social History Tobacco Use Types Packs/Day Years [...] Support [facility] V[facility] Access Center [address] [place] [phone] 11/03/2024 12:30 PM EDT Scheduled Only [facility] [address] [place] [phone] documented as of this encounter Procedures Procedure Name Priority Date/Time Associated Diagnosis Comments HEMATOLOGY Routine 06/30/2024 documented in this encounter Results * (ABNORMAL) HEMATOLOGY (06/30/2024) Hemoglobin 6.3(L) 12.0 - 16.0 g/dL [facility] Hemoglobin x 3 18.9(L) 36.0 - 48.0 % [facility] 06/30/2024 07/01/2024 10: 49 AM EDT Narrative [facility] - 07/01/2024 Unless otherwise specified, test(s) performed at: [facility], [address] [place] [address] STARCH DUMPER: Dwayne Fuentes M.D. For any questions, please call customer service at FREQUENCY:OTHER Resulting Agency Comment Specimen source: Blood Srinivas Agrawal MD LAB BLOOD ORDERABLES Final Result [facility] See order comments or contact performing lab Unknown, [place] documented in this encounter Visit Diagnoses Not on filedocumented in this encounter Care Teams Undergraduate Internship Relationship Specialty Start Date End Date Marita Wetzel DO [address] [place] [address] PCP - General Family Medicine 11/14/22 documented as of this encounter
--- OUTSIDE RECORDS SUMMARY | 2024-08-24 12:48 | XMS_ITS | Encounter Summary ---
Author Organization [facility] Address [address] [place] [address] Care Team Providers Care Mural Painter Name Role Phone Marita Wetzel DO Primary Care Provider [phone]- [phone] Encounter Details Date Type Department Care Team (Late st Contact Info) Description 05/12/2024 Lab Requisition [facility] - Main Lab [address] [facility] [place] [phone] Marily Gordillo MD [address] [place] [address] Chronic kidney disease, unspecified; Anemia, [...] unspecified documented in this encounter Care Teams Mural Painter Relationship Specialty Start Date End Date Marita Wetzel DO [address] [place] [address] PCP - General 01/09/23 documented as of this encounter
--- OUTSIDE RECORDS SUMMARY | 2024-08-24 12:48 | XMS_ITS | Clinical Summary ---
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 23949 mL 12 02/10/20 Active predniSONE 5 MG [...] Encounters Date Type Department Care Team Description 08/23/2024 Treatment [facility] [employer] [facility], [address] [place] [address] Bernardo Doty MD End stage renal disease; Dependence on renal dialysis 08/19/2024 11:30 AM EDT Clinical Support [facility] [employer] [facility], - Vascular Access Center [address] [place] [address] Db Neumann MD End stage renal disease (HCC) (Primary Dx); History of renal transplant; Encounter for adjustment and management of vascular catheters 08/19/2024 11:00 AM EDT Office Visit [facility] [address] [place] [address] Jerod Carrillo DO End stage renal disease (HCC) (Primary Dx) 08/18/2024 Orders Only [facility] [address] [address] Srinivas Agrawal MD 08/17/2024 Telephone [facility] [address] [place] [address] [place] [address] Stephany Stevens 08/16/2024 Orders Only [facility] [address] [address] Srinivas Agrawal MD 08/11/2024 Telephone [facility] [address] [place] [address] [place] [address] Hazel Zepeda attempt to schedue port flush 08/06/2024 Orders Only [facility] [address] [address] Srinivas Agrawal MD 08/04/2024 Orders Only [facility] [address] [address] Srinivas Agrawal MD 08/04/2024 Treatment [facility] [employer] [facility], [address] [place] [address] Bernardo Doty MD End stage renal disease; Dependence on renal dialysis 08/04/2024 Documentation Only [facility] [address] [place] [address] Jolynn Acevedo 08/02/2024 Treatment [facility] [employer] [facility], [address] [place] [address] Bernardo Doty MD End stage renal disease; Dependence on renal dialysis 07/30/2024 Orders Only [facility] [address] [address] Srinivas Agrawal MD 07/28/2024 Telephone [facility] - V[facility] Access Center [address] [place] [phone] Hazel Zepeda Attempted to schedule port flush 07/26/2024 Treatment [facility], [address] [place] [address] Bernardo Doty MD End stage renal disease; Dependence on renal dialysis 07/21/2024 Orders Only [facility] [address] [address] Srinivas Agrawal MD 07/21/2024 Treatment [facility] [employer] [facility], [address] [place] [address] Bernardo Doty MD End stage renal disease; Dependence on renal dialysis 07/19/2024 Orders Only [facility] [address] [address] Srinivas Agrawal MD 07/14/2024 Orders Only [facility] [address] [address] Srinivas Agrawal MD 07/12/2024 Orders Only [facility] [address] [address] Srinivas Agrawal MD 07/09/2024 Orders Only [facility] [address] [address] Srinivas Agrawal MD 07/07/2024 Orders Only [facility] [address] [address] Srinivas Agrawal MD 07/05/2024 Orders Only [facility] [address] [address] Srinivas Agrawal MD 07/05/2024 Treatment [facility] [employer] [facility], [address] [place] [address] Bernardo Doty MD End stage renal disease; Dependence on renal dialysis 06/30/2024 Refill [facility] [address] [address] Srinivas Agrawal MD 06/28/2024 Treatment [facility] [employer] [facility], [address] [place] [address] Bernardo Doty MD End stage renal disease; Dependence on renal dialysis 06/25/2024 Telephone [facility] [address] [place] [address] Hazel Zepeda VNA RN returned call 06/25/2024 Telephone [facility] [address] [place] [address] Hazel Zepeda Abx via port 06/23/2024 Treatment [facility] [employer] [facility], [address] [place] [address] Bernardo Doty MD End stage renal disease; Dependence on renal dialysis 06/23/2024 Orders Only [facility] [address] [address] Srinivas Agrawal MD 06/21/2024 Treatment [facility] [employer] [facility], [address] [place] [address] Bernardo Doty MD End stage renal disease; Dependence on renal dialysis 06/18/2024 Refill [facility] [address] [address] Srinivas Agrawal MD 06/10/2024 Telephone [facility] V[facility] [address] [place] [address] Hazel Zepeda port flush- pt at [facility] from Last 3 Months Immunizations Immunization Administration Dates Next Due HepB-CpG 10/02/2021, 2,07/04/2021,05/31 [...] Sign Reading Time Taken Comments Blood Pressure 108/62 08/20/2024 7:55 AM EDT Pulse 67 08/20/2024 7:55 AM EDT Temperature 36.3 ??C (97.4 ??F) 02/04/2024 9:55 AM ED T Respiratory Rate - - Oxygen Saturation 94% 08/20/2024 7:55 AM EDT Inhaled Oxygen Concentration - - Weight 56 kg (123 lb 6.4 oz) 02/04/2024 12:02 PM EDT Height 167.6 cm (5' 6 ) 02/04/2024 12:02 PM EDT Body Mass Index 19.92 02/04/2024 12:02 PM EDT Plan of Treatment Upcoming Encounters Date Type Department Care Team (Late st Contact Info) Description 09/16/2024 10:00 AM EDT Clinical Support [facility] V[facility] Access Center [address] [place] [address] [place] [address] 11/03/2024 12:30 PM EDT Scheduled Only [facility] Vascular Access [address] [place] [address] Health Maintenance Due Date Last Done Comments [...] 01/23/2022, 02/14/2021, Additional history exists Pneumococcal Vaccine: 50+ Ye ars (4 of 4 - PCV20 or PCV21) 05/03/2026 05/03/2021, 01/05/2020, 08/13/2010 Pneumococcal Vaccine: Peds ( 0 to 5 Years) and At-Risk Patients (6 to 49 Years) Discontinued 05/03/2021, 01/05/2020, 08/13/2010 Procedures Procedure Name Priority Date/Time Associated Diagnosis Comments HEMATOLOGY Routine 08/18/2024 CHEMISTRY Routine 08/16/2024 CHEMISTRY Routine 08/11/2024 HEMATOLOGY Routine 08/11/2024 CHEMISTRY Routine 08/06/2024 IMMUNO CHEMISTRY Routine 08/04/2024 HEMATOLOGY Routine 08/04/2024 CHEMISTRY Routine 08/04/2024 CHEMISTRY Routine 08/04/2024 [facility] LAB RESULTS Routine 07/30/2024 HD KINETICS Routine 07/30/2024 POST CHEMISTRY Routine 07/30/2024 CHEMISTRY Routine 07/30/2024 HEMATOLOGY Routine 07/30/2024 HEMATOLOGY Routine 07/21/2024 CHEMISTRY Routine 07/19/2024 HEMATOLOGY [...] 06/18/2024 HEMATOLOGY Routine 06/18/2024 CHEMISTRY Routine 06/18/2024 from Last 3 Months Results * (ABNORMAL) HEMATOLOGY (08/18/2024) Only the most recent of10 resultswithin the time period is included. Hemoglobin 7.7(L) 12.0 - 16.0 g/dL [facility] Hemoglobin x 3 23.1(L) 36.0 - 48.0 % [facility] 08/18/2024 08/19/2024 9:0 0 AM EDT Narrative SPECTRAE - 08/19/2024 Unless otherwise specified, test(s) performed at: [facility], [address] [place] [id number] TABLE TENDER SLUDGE: Dwayne Fuentes M.D. For any questions, please call customer service at FREQUENCY:OTHER Resulting Agency Comment Specimen source: Blood Srinivas Agrawal MD LAB BLOOD ORDERABLES Final Result Performing Organization Address [facility] de Phone Number [facility] See order comments or contact performing lab Unknown, [place] * [facility] Chemistry (08/16/2024) Only the most recent of15 resultswithin the time period is included. Potassium 3.6 3.5 - 5.1 mEq/L [facility] 08/16/2024 08/17/2024 7:4 7 AM EDT Narrative SPECTRAE - 08/17/2024 Unless otherwise specified, test(s) performed at: [facility], [address] [place] [address] TABLE TENDER SLUDGE: Dwayne Fuentes M.D. For any questions, please call customer service at FREQUENCY:OTHER Resulting Agency Comment Specimen source: Serum Srinivas Agrawal MD LAB BLOOD ORDERABLES Final Result Performing Organization Address [facility] de Phone Number [facility] See order comments or contact performing lab Unknown, [place] * IMMUNO CHEMISTRY (08/04/2024) Only the most recent of3 resultswithin the time period is included. Hep B Surface Ag Negative Negative [facility] 08/04/2024 08/05/2024 8:4 8 AM EDT Narrative Resulting Agency Comment Specimen source: Serum Srinivas Agrawal MD LAB BLOOD ORDERABLES Final Result Performing Organization Address [facility] de Phone Number [facility] See order comments or contact performing lab Unknown, [place] * HD KINETICS (07/30/2024) Only the most recent of3 resultswithin the time period is included. % Urea Reduction 72 65 - 80 % [facility] 07/30/2024 07/31/2024 12: 56 PM EDT Narrative Resulting Agency Comment Specimen source: Plasma Srinivas Agrawal MD LAB BLOOD ORDERABLES Final Result Performing Organization Address [facility]/State/ZIP Co de Phone Number ID [facility] See order comments or contact performing lab Unknown, [place] * POST CHEMISTRY (07/30/2024) Only the most recent of3 resultswithin the time period is included. Pathologist [facility] BUN Post Dialysis 10 6 - 19 mg/dL [facility] 07/30/2024 07/31/2024 12: 56 PM EDT Narrative SPECTRAE - 07/31/2024 Unless otherwise specified, test(s) performed at: [facility], [address] [place] [address] TABLE TENDER SLUDGE: Dwayne Fuentes M.D. For any questions, please call customer service at FREQUENCY:OTHER Resulting Agency Comment Specimen source: Plasma Srinivas Agrawal MD LAB BLOOD ORDERABLES Final Result Performing Organization Address City/[facility] de Phone Number ID [facility] See order comments or contact performing lab Unknown, [place] * [facility] IVET Lab Results (07/30/2024) Only the most recent of3 resultswithin the time period is included. Pathologist [facility] eKt/V ([place]) 1.28 [facility] nPCR_HD 0.75 [facility] eKdrt/V 1.27 [facility] eNPCR 0.67 [facility] eKt/V Gotch 1.27 [facility] PCR 37.68 [facility] WSTDKT/V 1.6 [facility] spKt/V Gotch 1.53 [facility] ge Center spKt/V (Daugirdas II) 1.51 [facility] 07/30/2024 07/30/2024 [facility] [place]ing Provider LAB BLOOD ORDERABLES Final Result Performing Organization Address City/[facility]/ZIP Co de Phone Number [facility] Contact Performing lab Unknown, [place] * SPECIAL CHEMISTRY (07/07/2024) Pathologist [facility] Hemoglobin A1C 5.7 4.8 - 5.9 % [facility] 07/07/2024 07/10/2024 11: 15 AM EDT Narrative SANTY - 07/10/2024 Unless otherwise specified, test(s) performed at: [facility], [address] [place], [place] [id number] TABLE TENDER SLUDGE: Dwayne Fuentes M.D. For any questions, please call customer service at FREQUENCY:MONTHLY Resulting Agency Comment Specimen source: Blood Srinivas Agrawal MD LAB BLOOD BANK TEST ORDERA BLES Final Result [facility] See order comments or contact performing lab Unknown, [place] from Last [address] [place] [address] Medicare Medicare Care Teams Development Chemist Relationship Specialty Start Date End Date Marita Wetzel DO [address] [place] [address] PCP - General Family Medicine 11/14/22
--- OUTSIDE RECORDS SUMMARY | 2024-08-24 12:48 | XMS_ITS | Encounter Summary ---
Author Organization [facility] Address [address] [place] [address] Phone Care Team Providers Care Catholic Priest Name Role Phone Marita Wetzel DO Primary Care Provider Unava ilable Encounter Details Date Type Department Care Team (Late st Contact Info) Description 03/18/2023 Documentation Only [facility] [address] [place] [address] Bernardo Doty MD [address] [place] [address] [place] [address] Social History Tobacco Use Types [...] Of [facility] Vascular Access Center [address] [place] [address] 11/03/2024 12:30 PM EDT Scheduled Only [facility] V[facility] Access Center [address] [place] [address] documented as of this encounter Visit Diagnoses Not on filedocumented in this encounter Care Teams Catholic Priest Relationship Specialty Start Date End Date Marita Wetzel DO [address] [place] [address] PCP - General Family Medicine 11/14/22 documented as of this encounter
--- OUTSIDE RECORDS SUMMARY | 2024-08-24 12:48 | XMS_ITS | Encounter Summary ---
Author Organization [facility] [place], Address [address] [place] [address] Phone Care Team Providers Care Public Policy Associate Name Role Phone Marita Wetzel DO Primary Care Provider Unava ilable Encounter Details Date Type Department Care Team (Late st Contact Info) Description 04/02/2023 Documentation Only [facility] [address] [place] [address] Bernardo Doty MD [address] [facility] [address] [place] [phone] Social History Tobacco Use Types Packs/Day Years [...] Support [facility] Vascular Access Center [address] [place] [address] [place] [address] 11/03/2024 12:30 PM EDT Scheduled Only [facility] Vascular Access [place] [address] [place] [phone] documented as of this encounter Visit Diagnoses Not on filedocumented in this encounter Care Teams Public Policy Associate Relationship Specialty Start Date End Date Marita Wetzel DO [address] [place] [address] PCP - General Family Medicine 11/14/22 documented as of this encounter
--- OUTSIDE RECORDS SUMMARY | 2024-08-24 12:48 | XMS_ITS | Encounter Summary ---
Author Organization [employer] Address [address] [facility] [address] [place] [address] Care Team Providers Care Skull Chopper Name Role Phone Marita Wetzel DO Primary Care Provider + [phone] Reason for Visit * Reason Onset Date Comments Med Refill 06/25/2024 Encounter Details Date Type Department Care Team ([facility] st Contact Info) Description 06/25/2024 Telephone [facility] [address] [place] [address] Marita Wetzel DO [address] [place] [address] Med Refill Social History Tobacco Use Types [...] 1 g tablet To be sent to: [facility]/pharmacy #[id number] *states it was prescribed before documented in this encounter Plan of Treatment Not on file documented as of this encounter Goals Goal Patient Goal Type Associated Problems Recent Progress Patient-Stated? Author Hemoglobin A1c < 7 Result Component 5.9( 4 9:43 AM EDT) No PuCarmen murphy, PharmD Record your blood sugar as directed [...] documented as of this encounter Care Teams Skull Chopper Relationship Specialty Start Date End Date Marita Wetzel DO [address] [place] [address] PCP - General Family Medicine 04/21/18 [facility] 05/22/24 documented as of this encounter
--- OUTSIDE RECORDS SUMMARY | 2024-08-24 12:48 | XMS_ITS | Encounter Summary ---
Author Organization [facility] Address [place] [place] [address] Phone Care Team Providers Care Store Team Member Name Role Phone Marita Wetzel DO Primary Care Provider Unava ilable Encounter Details Date Type Department Care Team (Late st Contact Info) Description 03/18/2023 Documentation Only [facility] Of [address] [address] Srinivas Agrawal MD [address] [place] [address] [place] [phone] Social History Tobacco Use Types Packs/Day Years [...] Support [facility] Vascular Access [address] [place] [address] 11/03/2024 12:30 PM EDT Scheduled Only [facility] Vascular Access [address] [place] [address] documented as of this encounter Visit Diagnoses Not on filedocumented in this encounter Care Teams Store Team Member Relationship Specialty Start Date End Date Marita Wetzel DO [address] [place] [address] PCP - General Family Medicine 11/14/22 documented as of this encounter
--- OUTSIDE RECORDS SUMMARY | 2024-08-24 12:48 | XMS_ITS | Encounter Summary ---
Author Organization [facility] Address [address] [place] [address] Phone Care Team Providers Care Software Tester Name Role Phone Marita Wetzel DO Primary Care Provider Unava ilable Encounter Details Date Type Department Care Team (Late st Contact Info) Description 12/06/2022 Documentation Only [facility] Of [address] [place] [address] [place], [place] [address] [place] [phone] Social History Tobacco Use Types Packs/Day Years [...] Support [facility] V[facility] Access Center [address] [place] [address] 11/03/2024 12:30 PM EDT Scheduled Only [facility] V[facility] Access Center [address] [place] [phone] documented as of this encounter Visit Diagnoses Not on filedocumented in this encounter Care Teams Software Tester Relationship Specialty Start Date End Date Marita Wetzel DO [address] [place] [address] PCP - General Family Medicine 11/14/22 documented as of this encounter
--- OUTSIDE RECORDS SUMMARY | 2024-08-24 12:48 | XMS_ITS | Encounter Summary ---
Author Organization [facility] Address [address] [place] [address] Phone Care Team Providers Care Retort Furnace Helper Name Role Phone Marita Wetzel DO Primary Care Provider Unava ilable Encounter Details Date Type Department Care Team (Late st Contact Info) Description 09/11/2023 Documentation Only [facility] Of [address] [place] [address] Pauline Aguayo [address] [place] [phone] Social History Tobacco Use Types Packs/Day Years [...] Support [facility] Vascular Access Center [address] [place] [phone] 11/03/2024 12:30 PM EDT Scheduled Only [facility] Vascular Access Center [address] [place] [address] documented as of this encounter Visit Diagnoses Not on filedocumented in this encounter Care Teams Retort Furnace Helper Relationship Specialty Start Date End Date Marita Wetzel DO [address] [place] [address] PCP - General Family Medicine 11/14/22 documented as of this encounter
--- OUTSIDE RECORDS SUMMARY | 2024-08-24 12:49 | XMS_ITS | Encounter Summary ---
Author Organization [facility] Address [address] [place] [address] Care Team Providers Care Parker Name Role Phone Marita Wetzel DO Primary Care Provider [phone] Encounter Details Date Type Department Care Team (Late st Contact Info) Description 04/28/2024 Lab Requisition [facility] - Main Lab [address] [facility] [place] [phone] Marily Gordillo MD [address] [place] [address] Chronic kidney disease, unspecified; Anemia, [...] unspecified documented in this encounter Care Teams Parker Relationship Specialty Start Date End Date Marita Wetzel DO [address] [place] [address] PCP - General 01/09/23 documented as of this encounter
--- OUTSIDE RECORDS SUMMARY | 2024-08-24 12:49 | XMS_ITS | Encounter Summary ---
Author Organization [facility] Address [address] [place] [address] Care Team Providers Care Welfare Administrator Name Role Phone Marita Wetzel Primary Care Provider +1- [phone] Encounter Details Date Type Department Care Team (Late st Contact Info) Description 03/12/2024 Lab Requisition [facility] - Main Lab 299 [facility] [place] [address] Catalina Burr MD [address] [place], [place] [id number] Chronic embolism and thrombosis of unspecified vein; Acute kidney failure, unspecified (CMS/HCC V24); Type 2 diabetes mellitus without complications (CMS/HCC V24, CMS/HCC V28) Social History Tobacco Use Types Packs/Day Years [...] - 20.0 ng/mL 03/17/2024 1:34 PM EST [facility] Comment: Additional Information: [...] Test performed at [facility], [facility] [address] [place], [place] ??[address] ? [phone] Ashtyn Leigh MD, PhD - Laborer [employer] Blood Venous blood specimen / Unknown Venipuncture / Unknown 03/15/2024 8:20 AM EST 03/15/2024 10:20 AM EST us Catalina Burr MD LAB BLOOD ORDERABLES Final Resul t [place] [address] * (ABNORMAL) Renal function panel (03/15/2024 8:20 AM EST) Sodium 139 133 - 145 mmol/L LAB CHEMISTRY METHOD 03/15/2024 11:31 AM [facility] Potassium 5.6(H) 3.5 - 5.5 mmol/L LAB CHEMISTRY METHOD 03/15/2024 11:31 AM [facility] Chloride 108 96 - 110 mmol/L LAB CHEMISTRY METHOD 03/15/2024 11:31 AM [facility] CO2 19(L) 21 - 32 mmol/L LAB CHEMISTRY METHOD 03/15/2024 11:31 AM [facility] Anion Gap 12(H) 3 - 11 LAB CHEMISTRY METHOD 03/15/2024 11:31 AM [facility] Glucose 105(H) 70 - 100 mg/dL LAB CHEMISTRY METHOD 03/15/2024 11:31 AM [facility] BUN 36(H) 5 - 25 mg/dL LAB CHEMISTRY METHOD 03/15/2024 11:31 AM [facility] Creatinine 3.97(H) 0.50 - 1.10 mg/dL LAB CHEMISTRY METHOD 03/15/2024 11:31 AM [facility] eGFR 12(L) >=60 mL/min/1. 73m2 LAB CHEMISTRY METHOD 03/15/2024 11:31 AM [facility] Comment:Calculation based on the??Chronic Kidney Disease Epidemiology Collaboration (CKD-EPI) equation refit??without adjustment for race. BUN/Creatinine Ratio 9.1 LAB CHEMISTRY METHOD 03/15/2024 11:31 AM EST [facility] Albumin 2.6(L) 3.2 - 5.0 g/dL LAB CHEMISTRY METHOD 03/15/2024 11:31 AM EST [facility] Calcium 9.5 8.5 - 10.5 mg/dL LAB CHEMISTRY METHOD 03/15/2024 11:31 AM EST [facility] Phosphorus 4.0 2.5 - 4.5 mg/dL LAB CHEMISTRY METHOD 03/15/2024 11:31 AM EST [facility] Blood Venous blood specimen / Unknown Venipuncture / Unknown 03/15/2024 8:20 AM EST 03/15/2024 10:16 AM EST us Catalina Burr MD LAB BLOOD ORDERABLES Final Resul t [facility] [address] [place] [address], documented in this encounter Visit Diagnoses Diagnosis Chronic embolism and thrombosis of unspecified vein Acute kidney failure, unspecified (CMS/HCC V24) Acute kidney failure, unspecified Type 2 diabetes mellitus without complications (CMS/HCC V24, CMS/HCC V28) documented in this encounter Care Teams Welfare Administrator Relationship Specialty Start Date End Date Marita Wetzel DO [address] [place] [address] PCP - General 01/09/23 documented as of this encounter
--- OUTSIDE RECORDS SUMMARY | 2024-08-24 12:49 | XMS_ITS | Encounter Summary ---
Author Organization [facility] Address [address] [place] [address] Care Team Providers Care Nonfarm Animal Caretaker Name Role Phone Marita Wetzel Primary Care Provider +1- [phone] Encounter Details Date Type Department Care Team (Late st Contact Info) Description 03/01/2024 Lab Requisition [facility] - Main Lab 299 [facility] [place] [address] Catalina Burr MD [address] [place], [place] [id number] End stage renal disease (CMS/HCC V24, CMS/HCC V28); Type 2 diabetes mellitus without complications (CMS/HCC [...] * (ABNORMAL) Ferritin (03/01/2024 6:56 AM EST) Pathologist [facility] Ferritin 2,736(H) 8 - 252 ng/mL LAB CHEMISTRY METHOD 03/01/2024 11:27 AM EST [facility] Blood Venous blood specimen / Unknown Venipuncture / Unknown 03/01/2024 6:56 AM EST 03/01/2024 9:07 AM EST Catalina Burr MD LAB BLOOD ORDERABLES Final Resul t Performing Organization Address City/[facility]/ZIP Co de Phone Number [facility] [address] [place] [address], [place] [phone] * (ABNORMAL) Iron (03/01/2024 6:56 AM EST) [facility] Iron 29(L) 40 - 150 mcg/dL LAB CHEMISTRY METHOD 03/01/2024 11:22 AM EST [facility] Blood Venous blood specimen / Unknown Venipuncture / Unknown 03/01/2024 6:56 AM EST 03/01/2024 9:07 AM EST us Catalina Burr MD LAB BLOOD ORDERABLES Final Resul t [facility] [address] [place] [address], [place] [phone] * Tacrolimus level (03/01/2024 6:56 AM EST) [facility] Tacrolimus Level 5.2 5.0 - 20.0 ng/mL 03/04/2024 12:28 PM EST [facility] Comment: Additional Information: Toxic Level ?> [...] developed and the performance characteristics determined by [facility]. This confirmation testing has not been cleared or approved by the FDA. The laboratory is regulated under CLIA as qualified to perform high-complexity testing. This test is used for patient testing purposes. It should not be regarded as investigational or for research. Test performed at [facility], [address] [place], [place] ??[address] ? [phone] Ashtyn Leigh MD, PhD - Cereal Popper Blood Venous blood specimen / Unknown Venipuncture / Unknown 03/01/2024 6:56 AM EST 03/01/2024 9:07 AM EST us Catalina Burr MD LAB BLOOD ORDERABLES Final Resul t [address] [place] [address] * (ABNORMAL) Renal function panel (03/01/2024 6:56 [...] Final Resul t [facility] [address] [place] [address], [place] [phone] * (ABNORMAL) Complete blood count (03/01/2024 6:56 [...] LAB HEMETOLOGY METHOD 03/01/2024 10:46 AM EST [facility] RDW 16.7(H) 11.0 - 15.0 % LAB HEMETOLOGY METHOD 03/01/2024 10:46 AM [facility] Platelets 235 130 - 400 K/mcL LAB HEMETOLOGY METHOD 03/01/2024 10:46 AM [facility] MPV 10.8 7.0 - 11.0 FL LAB HEMETOLOGY METHOD 03/01/2024 10:46 AM [facility] NRBC 0.0 <1.0 % LAB HEMETOLOGY METHOD 03/01/2024 10:46 AM [facility] NRBC Absolute 0.00 <0.10 K/mcL LAB HEMETOLOGY METHOD 03/01/2024 10:46 AM [facility] Blood Venous blood specimen / Unknown Venipuncture / Unknown 03/01/2024 6:56 AM EST 03/01/2024 9:07 AM EST us Catalina Burr MD LAB BLOOD ORDERABLES Final Resul t [facility] [address] [place] [address], documented in this encounter Visit Diagnoses Diagnosis End stage renal disease (CMS/HCC V24, CMS/HCC V28) End stage renal disease Type 2 diabetes mellitus without complications (CMS/HCC V24, CMS/HCC V28) documented in this encounter Care Teams Nonfarm Animal Caretaker Relationship Specialty Start Date End Date Marita Wetzel DO [address] [place] [address] PCP - General 01/09/23 documented as of this encounter
--- OUTSIDE RECORDS SUMMARY | 2024-08-24 12:49 | XMS_ITS | Encounter Summary ---
Author Organization [facility] Address [address] [place] [address] Care Team Providers Care Marketing Coordinator Name Role Phone Marita Wetzel DO Primary Care Provider +1- [phone] Encounter Details Date Type Department Care Team (Late st Contact Info) Description 04/10/2024 Lab Requisition [facility] - Main Lab 299 [facility] [place] [phone] Marily Gordillo MD [address] [place] [phone] Chronic embolism and thrombosis of unspecified vein; [...] unspecified documented in this encounter Care Teams Marketing Coordinator Relationship Specialty Start Date End Date Marita Wetzel DO [address] [place], [place] PCP - General 01/09/23 documented as of this encounter
--- OUTSIDE RECORDS SUMMARY | 2024-08-24 12:49 | XMS_ITS | Encounter Summary ---
Author Organization [facility] Address [address] [place] [address] Care Team Providers Care Instrumentation Tech Name Role Phone Marita Wetzel DO Primary Care Provider +1- [phone] Encounter Details Date Type Department Care Team (Late st Contact Info) Description 04/28/2024 Lab Requisition [facility] - Main Lab [address] [facility] [employer] [place] [phone] Marily Gordillo MD [address] [place] [address] Chronic kidney disease, unspecified; Anemia, [...] unspecified documented in this encounter Care Teams Instrumentation Tech Relationship Specialty Start Date End Date Marita Wetzel DO [address] [place] [address] PCP - General 01/09/23 documented as of this encounter
--- OUTSIDE RECORDS SUMMARY | 2024-08-24 12:49 | XMS_ITS | Encounter Summary ---
Author Organization [facility] Address [address] [place] [address] Care Team Providers Care Mail Handler Assistant Name Role Phone Marita Wetzel Primary Care Provider +1- [phone] Encounter Details Date Type Department Care Team (Late st Contact Info) Description 04/02/2024 Lab Requisition [facility] - Main Lab 299 [facility] [place] [phone] Marily Gordillo MD [address] [place] [address] Chronic embolism and thrombosis of [...] developed and the performance characteristics determined by [facility]. This confirmation testing has not been cleared or approved by the FDA. The laboratory is regulated under CLIA as qualified to perform high-complexity testing. This test is used for patient testing purposes. It should not be regarded as investigational or for research. Test performed at [facility], [address], [place], [place] ??[address] ? [phone] Ashtyn Leigh MD, PhD - Rail Car Repair [employer] Blood Venous blood specimen / Unknown Venipuncture / Unknown 04/05/2024 6:56 AM EST 04/05/2024 10:25 AM EST us Marily Gordillo MD LAB BLOOD ORDERABLES Final Resul t [place] [address] * (ABNORMAL) Renal function panel (04/05/2024 6:56 AM EST) Sodium 138 133 - 145 mmol/L LAB CHEMISTRY METHOD 04/05/2024 11:52 AM [facility] Potassium 5.0 3.5 - 5.5 mmol/L LAB CHEMISTRY METHOD 04/05/2024 11:52 AM [facility] Chloride 107 96 - 110 mmol/L LAB CHEMISTRY METHOD 04/05/2024 11:52 AM [facility] CO2 20(L) 21 - 32 mmol/L LAB CHEMISTRY METHOD 04/05/2024 11:52 AM [facility] Anion Gap 11 3 - 11 LAB CHEMISTRY METHOD 04/05/2024 11:52 AM [facility] Glucose 104(H) 70 - 100 mg/dL LAB CHEMISTRY METHOD 04/05/2024 11:52 AM [facility] BUN 56(H) 5 - 25 mg/dL LAB CHEMISTRY METHOD 04/05/2024 11:52 AM [facility] Creatinine 4.43(H) 0.50 - 1.10 mg/dL LAB CHEMISTRY METHOD 04/05/2024 11:52 AM [facility] eGFR 11(L) >=60 mL/min/1. 73m2 LAB CHEMISTRY METHOD 04/05/2024 11:52 AM [facility] Comment:Calculation based on the??Chronic Kidney Disease Epidemiology Collaboration (CKD-EPI) equation refit??without adjustment for race. BUN/Creatinine Ratio 12.6 LAB CHEMISTRY METHOD 04/05/2024 11:52 AM [facility] Albumin 1.9(L) 3.2 - 5.0 g/dL LAB CHEMISTRY METHOD 04/05/2024 11:52 AM EST [facility] Calcium 9.0 8.5 - 10.5 mg/dL LAB CHEMISTRY METHOD 04/05/2024 11:52 AM [facility] Phosphorus 3.1 2.5 - 4.5 mg/dL LAB CHEMISTRY METHOD 04/05/2024 11:52 AM [facility] Blood Venous blood specimen / Unknown Venipuncture / Unknown 04/05/2024 6:56 AM EST 04/05/2024 10:21 AM EST Marily Gordillo MD LAB BLOOD ORDERABLES Final Resul t [facility] [address] [place] [address], * (ABNORMAL) Complete blood count (04/05/2024 6:56 AM EST) WBC 9.2 4.8 - 10.8 K/mcL LAB HEMETOLOGY METHOD 04/05/2024 10:42 AM [facility] RBC 2.50(L) 3.80 - 4.80 M/mcL LAB HEMETOLOGY METHOD 04/05/2024 10:42 AM [facility] Hemoglobin 6.8(L) 11.5 - 16.0 g/dL LAB HEMETOLOGY METHOD 04/05/2024 10:42 AM [facility] Hematocrit 24.8(L) 35.0 - 47.0 % LAB HEMETOLOGY METHOD 04/05/2024 10:42 AM [facility] MCV 99.6(H) 79.0 - 98.0 FL LAB HEMETOLOGY METHOD 04/05/2024 10:42 AM [facility] MCH 27.3 27.0 - 32.0 pcg LAB HEMETOLOGY METHOD 04/05/2024 10:42 AM EST [facility] MCHC 27.4(L) 32.0 - 37.0 g/dL LAB HEMETOLOGY METHOD 04/05/2024 10:42 AM [facility] RDW 16.7(H) 11.0 - 15.0 % LAB HEMETOLOGY METHOD 04/05/2024 10:42 AM [facility] Platelets 332 130 - 400 K/mcL LAB HEMETOLOGY METHOD 04/05/2024 10:42 AM [facility] MPV 10.2 7.0 - 11.0 FL LAB HEMETOLOGY METHOD 04/05/2024 10:42 AM [facility] NRBC 0.0 <1.0 % LAB HEMETOLOGY METHOD 04/05/2024 10:42 AM [facility] NRBC Absolute 0.00 <0.10 K/mcL LAB HEMETOLOGY METHOD 04/05/2024 10:42 AM [facility] Blood Venous blood specimen / Unknown Venipuncture / Unknown 04/05/2024 6:56 AM EST 04/05/2024 10:26 AM EST us Marily Gordillo MD LAB BLOOD ORDERABLES Final Resul t [facility] [address] [place] [address], documented in this encounter Visit Diagnoses Diagnosis Chronic embolism and thrombosis of unspecified vein Acute kidney failure, unspecified (CMS/HCC V24) Acute kidney failure, unspecified documented in this encounter Care Teams Mail Handler Assistant Relationship Specialty Start Date End Date Marita Wetzel DO [address] [place] [address] PCP - General 01/09/23 documented as of this encounter
--- OUTSIDE RECORDS SUMMARY | 2024-08-24 12:49 | XMS_ITS | Encounter Summary ---
Author Organization [facility] Address [address] [place] [address] Phone Care Team Providers Care Cost Coordinator Name Role Phone Marita Wetzel DO Primary Care Provider Unava ilable Encounter Details Date Type Department Care Team (Late st Contact Info) Description 11/11/2022 Documentation Only [facility] [address] [place] [place] [phone] Pauline Aguayo [address] [place] [phone] Social History Tobacco Use Types Packs/Day Years [...] Support [facility] Vascular Access Center [address] [place] [phone] 11/03/2024 12:30 PM EDT Scheduled Only [facility] Center [address] [place] [phone] documented as of this encounter Visit Diagnoses Not on filedocumented in this encounter Care Teams Cost Coordinator Relationship Specialty Start Date End Date Marita Wetzel DO [address] [place] [address] PCP - General Family Medicine 11/14/22 documented as of this encounter
--- OUTSIDE RECORDS SUMMARY | 2024-08-24 12:49 | XMS_ITS | Encounter Summary ---
Author Organization [facility] Address [address] [place] [address] Phone Care Team Providers Care Portable Feed Mill Operator Name Role Phone Marita Wetzel DO Primary Care Provider Unava ilable Encounter Details Date Type Department Care Team (Late st Contact Info) Description 07/29/2023 Documentation Only [facility] [address] [place] [phone] Pauline Aguayo [address] [place] [phone] Social History Tobacco Use Types Packs/Day Years [...] Support [facility] Access Center [address] [place] [phone] 11/03/2024 12:30 PM EDT Scheduled Only [facility] [address] [place] [phone] documented as of this encounter Visit Diagnoses Not on filedocumented in this encounter Care Teams Portable Feed Mill Operator Relationship Specialty Start Date End Date Marita Wetzel DO [address] [place] [address] PCP - General Family Medicine 11/14/22 documented as of this encounter
--- OUTSIDE RECORDS SUMMARY | 2024-08-24 12:49 | XMS_ITS | Encounter Summary ---
Author Organization [facility] Address [address] [place] [address] Phone Care Team Providers Care Supervising Librarian Name Role Phone Marita Wetzel DO Primary Care Provider Unava ilable Encounter Details Date Type Department Care Team (Late st Contact Info) Description 06/12/2023 Documentation Only [facility] [address] [place] [phone] [place], [place], [place] [address] [place] [phone] Social History Tobacco Use Types Packs/Day Years [...] Support [facility] Vascular Access Center [address] [place] [phone] 11/03/2024 12:30 PM EDT Scheduled Only [facility] Vascular Access [place] [address] [place] [phone] documented as of this encounter Visit Diagnoses Not on filedocumented in this encounter Care Teams Supervising Librarian Relationship Specialty Start Date End Date Marita Wetzel DO [address] [place] [address] PCP - General Family Medicine 11/14/22 documented as of this encounter
--- OUTSIDE RECORDS SUMMARY | 2024-08-24 12:49 | XMS_ITS | Encounter Summary ---
Author Organization [facility] Address [address] [place] [address] Care Team Providers Care Openstack Cloud Consulting Architect Name Role Phone Marita Wetzel Primary Care Provider +1- [phone] Encounter Details Date Type Department Care Team (Late st Contact Info) Description 04/17/2024 Lab Requisition [facility] - Main Lab 299 [facility] [place] [address] Catalina Burr MD [address] [place] [address] End stage renal disease (CMS/HCC V24, CMS/HCC V28); Anemia, unspecified Social History Tobacco Use Types [...] [facility], [address] [place], [place] ??[address] ? [phone] Ashtyn Leigh MD, PhD - Housekeeping Room Inspector Blood Venous blood specimen / Unknown Venipuncture / Unknown 04/17/2024 5:33 AM EST 04/17/2024 9:33 AM EST us Catalina Burr MD LAB BLOOD ORDERABLES Final Resul t [facility] [address] [place] [address] * (ABNORMAL) Reticulocyte count (04/17/2024 5:33 AM EST) Retic Ct Abs 0.050 0.030 - 0.090 M/mcL LAB HEMETOLOGY METHOD 04/17/2024 10:[address] [facility] Retic Ct Pct 1.8(H) 0.7 - 1.7 % LAB HEMETOLOGY METHOD 04/17/2024 10:42 AM [facility] Immature Retic Fract 24.7(H) 2.3 - 15.9 % LAB HEMETOLOGY METHOD 04/17/2024 10:42 AM [facility] Reticulocyte Hemoglobin 28.3(L) >29.0 pcg LAB HEMETOLOGY METHOD 04/17/2024 10:42 AM [facility] Blood Venous blood specimen / Unknown Venipuncture / Unknown 04/17/2024 5:33 AM EST 04/17/2024 9:33 AM EST us Catalina Burr MD LAB BLOOD ORDERABLES Final Resul t [facility] [address] [place] [address], [place] [phone] * (ABNORMAL) Comprehensive metabolic panel (04/17/2024 5:33 AM EST) Sodium 146(H) 133 - 145 mmol/L LAB CHEMISTRY METHOD 04/17/2024 11:02 AM [facility] Potassium 3.4(L) 3.5 - 5.5 mmol/L LAB CHEMISTRY METHOD 04/17/2024 11:02 AM [facility] Chloride 116(H) 96 - 110 mmol/L LAB CHEMISTRY METHOD 04/17/2024 11:02 AM [facility] CO2 21 21 - 32 mmol/L LAB CHEMISTRY METHOD 04/17/2024 11:02 AM [facility] Anion Gap 9 3 - 11 LAB CHEMISTRY METHOD 04/17/2024 11:02 AM [facility] Glucose 61(L) 70 - 100 mg/dL LAB CHEMISTRY METHOD 04/17/2024 11:02 AM [facility] BUN 48(H) 5 - 25 mg/dL LAB CHEMISTRY METHOD 04/17/2024 11:02 AM [facility] Creatinine 3.71(H) 0.50 - 1.10 mg/dL LAB CHEMISTRY METHOD 04/17/2024 11:02 AM [facility] eGFR 13(L) >=60 mL/min/1. 73m2 LAB CHEMISTRY METHOD 04/17/2024 11:02 AM [facility] Comment:Calculation based on the??Chronic Kidney Disease Epidemiology Collaboration (CKD-EPI) equation refit??without adjustment for race. BUN/Creatinine Ratio 12.9 LAB CHEMISTRY METHOD 04/17/2024 11:02 AM [facility] Calcium 8.7 8.5 - 10.5 mg/dL LAB CHEMISTRY METHOD 04/17/2024 11:02 AM [facility] AST (SGOT) 8(L) 10 - 42 unit/L LAB CHEMISTRY METHOD 04/17/2024 11:02 AM [facility] ALT (SGPT) 9(L) 10 - 60 unit/L LAB CHEMISTRY METHOD 04/17/2024 11:02 AM [facility] Alkaline Phosphatase 61 42 - 121 unit/L LAB CHEMISTRY METHOD 04/17/2024 11:02 AM [facility] Total Protein 5.6(L) 6.0 - 8.0 g/dL LAB CHEMISTRY METHOD 04/17/2024 11:02 AM [facility] Albumin 2.0(L) 3.2 - 5.0 g/dL LAB CHEMISTRY METHOD 04/17/2024 11:02 AM [facility] Total Bilirubin 0.5 0.0 - 1.4 mg/dL LAB CHEMISTRY METHOD 04/17/2024 11:02 AM [facility] Blood Venous blood specimen / Unknown Venipuncture / Unknown 04/17/2024 5:33 AM EST 04/17/2024 9:33 AM EST Catalina Burr MD LAB BLOOD ORDERABLES Final Resul t [facility] [address] [place] [address], * (ABNORMAL) Complete blood count (04/17/2024 5:33 AM EST) WBC 9.3 4.8 - 10.8 K/mcL LAB HEMETOLOGY METHOD 04/17/2024 10:42 AM [facility] RBC 3.10(L) 3.80 - 4.80 M/mcL LAB HEMETOLOGY METHOD 04/17/2024 10:42 AM [facility] Hemoglobin 8.3(L) 11.5 - 16.0 g/dL LAB HEMETOLOGY METHOD 04/17/2024 10:42 AM [facility] Hematocrit 30.3(L) 35.0 - 47.0 % LAB HEMETOLOGY METHOD 04/17/2024 10:42 AM [facility] MCV 98.1(H) 79.0 - 98.0 FL LAB HEMETOLOGY METHOD 04/17/2024 10:42 AM [facility] MCH 26.9(L) 27.0 - 32.0 pcg LAB HEMETOLOGY METHOD 04/17/2024 10:[address] [facility] MCHC 27.4(L) 32.0 - 37.0 g/dL LAB HEMETOLOGY METHOD 04/17/2024 10:42 AM [facility] RDW 16.9(H) 11.0 - 15.0 % LAB HEMETOLOGY METHOD 04/17/2024 10:42 AM [facility] Platelets 206 130 - 400 K/mcL LAB HEMETOLOGY METHOD 04/17/2024 10:42 AM [facility] MPV 10.1 7.0 - 11.0 FL LAB HEMETOLOGY METHOD 04/17/2024 10:42 AM [facility] NRBC 0.0 <1.0 % LAB HEMETOLOGY METHOD 04/17/2024 10:42 AM [facility] NRBC Absolute 0.00 <0.10 K/mcL LAB HEMETOLOGY METHOD 04/17/2024 10:42 AM [facility] Blood Venous blood specimen / Unknown Venipuncture / Unknown 04/17/2024 5:33 AM EST 04/17/2024 9:33 AM EST us Catalina Burr MD LAB BLOOD ORDERABLES Final Resul t [facility] [address] [place] [address], [place] [phone] documented in this encounter Visit Diagnoses Diagnosis End stage renal disease (CMS/HCC V24, CMS/HCC V28) End stage renal disease Anemia, unspecified documented in this encounter Care Teams Openstack Cloud Consulting Architect Relationship Specialty Start Date End Date Marita Wetzel DO [address] [place] [address] PCP - General 01/09/23 documented as of this encounter
--- OUTSIDE RECORDS SUMMARY | 2024-08-24 12:49 | XMS_ITS | Encounter Summary ---
Author Organization [facility] Address [address] [place] [address] Phone Care Team Providers Care Regulatory Affairs Internship Name Role Phone Marita Wetzel DO Primary Care Provider Unava ilable Encounter Details Date Type Department Care Team (Late st Contact Info) Description 09/26/2022 Documentation Only [facility] [address] [phone] Candace Adam PA Social History Tobacco Use [...] Support [facility] [address] [place] [place] [address] 11/03/2024 12:30 PM EDT Scheduled Only [facility] [place] [address] [place] [phone] documented as of this encounter Visit Diagnoses Not on filedocumented in this encounter Care Teams Regulatory Affairs Internship Relationship Specialty Start Date End Date Marita Wetzel DO [address] [place] [address] PCP - General Family Medicine 11/14/22 documented as of this encounter
--- OUTSIDE RECORDS SUMMARY | 2024-08-24 12:49 | XMS_ITS | Encounter Summary ---
Author Organization [facility] Address [address] [place] [address] Care Team Providers Care Senior Mobile Web Developer Name Role Phone Mary JaneMarita yousif Primary Care Provider +1- [phone] Encounter Details Date Type Department Care Team (Late st Contact Info) Description 03/19/2024 Lab Requisition [facility] - Main Lab [address] [facility] [place] [address] Catalina Burr MD [address] [place] [address] Chronic embolism and thrombosis of unspecified vein; [...] developed and the performance characteristics determined by [facility]. This confirmation testing has not been cleared or approved by the FDA. The laboratory is regulated under CLIA as qualified to perform high-complexity testing. This test is used for patient testing purposes. It should not be regarded as investigational or for research. Test performed at [facility], [address], [place], [place] ??[address] ? [phone] Ashtyn Leigh MD, PhD - Laminated Plastics Assembler And Gluer Blood Venous blood specimen / Unknown Venipuncture / Unknown 03/22/2024 6:50 AM EST 03/22/2024 8:05 AM EST us Catalina Burr MD LAB BLOOD ORDERABLES Final Resul t [facility] [address] [place] [address] * (ABNORMAL) Renal function panel (03/22/2024 6:50 AM EST) Sodium 138 133 - 145 mmol/L LAB CHEMISTRY METHOD 03/22/2024 8:55 AM [facility] Potassium 4.6 3.5 - 5.5 mmol/L LAB CHEMISTRY METHOD 03/22/2024 8:55 AM [facility] Chloride 107 96 - 110 mmol/L LAB CHEMISTRY METHOD 03/22/2024 8:55 AM [facility] CO2 20(L) 21 - 32 mmol/L LAB CHEMISTRY METHOD 03/22/2024 8:55 AM [facility] Anion Gap 11 3 - 11 LAB CHEMISTRY METHOD 03/22/2024 8:55 AM [facility] Glucose 158(H) 70 - 100 mg/dL LAB CHEMISTRY METHOD 03/22/2024 8:55 AM [facility] BUN 51(H) 5 - 25 mg/dL LAB CHEMISTRY METHOD 03/22/2024 8:55 AM [facility] Creatinine 4.91(H) 0.50 - 1.10 mg/dL LAB CHEMISTRY METHOD 03/22/2024 8:55 AM [facility] eGFR 9(L) >=60 mL/min/1. 73m2 LAB CHEMISTRY METHOD 03/22/2024 8:55 AM [facility] Comment:Calculation based on the??Chronic Kidney Disease Epidemiology Collaboration (CKD-EPI) equation refit??without adjustment for race. BUN/Creatinine Ratio 10.4 LAB CHEMISTRY METHOD 03/22/2024 8:55 AM EST [facility] Albumin 2.1(L) 3.2 - 5.0 g/dL LAB CHEMISTRY METHOD 03/22/2024 8:55 AM [facility] Calcium 9.0 8.5 - 10.5 mg/dL LAB CHEMISTRY METHOD 03/22/2024 8:55 AM [facility] Phosphorus 3.4 2.5 - 4.5 mg/dL LAB CHEMISTRY METHOD 03/22/2024 8:55 AM [facility] Blood Venous blood specimen / Unknown Venipuncture / Unknown 03/22/2024 6:50 AM EST 03/22/2024 8:05 AM EST Catalina Brur MD LAB BLOOD ORDERABLES Final Resul t [facility] [address] [place] [address], [place] [phone] * (ABNORMAL) Complete blood count (03/22/2024 6:50 AM EST) WBC 10.4 4.8 - 10.8 K/[facility] LAB HEMETOLOGY METHOD 03/22/2024 8:32 AM [facility] RBC 2.80(L) 3.80 - 4.80 M/[facility] LAB HEMETOLOGY METHOD 03/22/2024 8:32 AM [facility] Hemoglobin 7.9(L) 11.5 - 16.0 g/dL LAB HEMETOLOGY METHOD 03/22/2024 8:32 AM [facility] Hematocrit 27.8(L) 35.0 - 47.0 % LAB HEMETOLOGY METHOD 03/22/2024 8:32 AM [facility] MCV 98.6(H) 79.0 - 98.0 FL LAB HEMETOLOGY METHOD 03/22/2024 8:32 AM EST [facility] MCH 28.0 27.0 - 32.0 pcg LAB HEMETOLOGY METHOD 03/22/2024 8:32 AM [facility] MCHC 28.4(L) 32.0 - 37.0 g/dL LAB HEMETOLOGY METHOD 03/22/2024 8:32 AM EST [facility] RDW 17.8(H) 11.0 - 15.0 % LAB HEMETOLOGY METHOD 03/22/2024 8:32 AM EST [facility] Platelets 218 130 - 400 K/mcL LAB HEMETOLOGY METHOD 03/22/2024 8:32 AM [facility] MPV 10.7 7.0 - 11.0 FL LAB HEMETOLOGY METHOD 03/22/2024 8:32 AM EST [facility] NRBC 0.0 <1.0 % LAB HEMETOLOGY METHOD 03/22/2024 8:32 AM [facility] NRBC Absolute 0.00 <0.10 K/mcL LAB HEMETOLOGY METHOD 03/22/2024 8:32 AM [facility] Blood Venous blood specimen / Unknown Venipuncture / Unknown 03/22/2024 6:50 AM EST 03/22/2024 8:05 AM EST us Catalina Burr MD LAB BLOOD ORDERABLES Final Resul t [facility] [address] [place] [address], documented in this encounter Visit Diagnoses Diagnosis Chronic embolism and thrombosis of unspecified vein Acute kidney failure, unspecified (CMS/HCC V24) Acute kidney failure, unspecified Type 2 diabetes mellitus without complications (CMS/HCC V24, CMS/HCC V28) documented in this encounter Care Teams Senior Mobile Web Developer Relationship Specialty Start Date End Date Marita Wetzel DO [address] [place], [place] PCP - General 01/09/23 documented as of this encounter
--- OUTSIDE RECORDS SUMMARY | 2024-08-24 12:49 | XMS_ITS | Encounter Summary ---
Author Organization [facility] Address [address] [place] [address] Care Team Providers Care Locomotive Engineer Diesel Name Role Phone Marita Wetzel Primary Care Provider +1- [phone] Encounter Details Date Type Department Care Team (Late st Contact Info) Description 03/29/2024 Lab Requisition [facility] - Main Lab [address] [facility] [place] [address] Catalina Burr MD [address] [place] [address] End stage renal disease (CMS/HCC V24, CMS/HCC V28) Social History Tobacco [...] 6:53 AM EST End stage renal disease (CMS/[facility]) documented in this encounter Results * Tacrolimus level (03/29/2024 6:53 AM EST) Tacrolimus Level 6.8 5.0 - 20.0 ng/mL 03/31/2024 12:22 PM EST [facility] Comment: Additional Information: Toxic Level ?> [...] developed and the performance characteristics determined by [facility]. This confirmation testing has not been cleared or approved by the FDA. The laboratory is regulated under CLIA as qualified to perform high-complexity testing. This test is used for patient testing purposes. It should not be regarded as investigational or for research. Test performed at [facility], [facility] [place], [place] ??[address] ? [phone] Ashtyn Leigh MD, PhD - Product/Device Technologist Blood Venous blood specimen / Unknown Venipuncture / Unknown 03/29/2024 6:53 AM EST 03/29/2024 8:32 AM EST us Catalina Burr MD LAB BLOOD ORDERABLES Final Resul t [place] [address] * (ABNORMAL) Renal function panel (03/29/2024 6:53 [...] Resul t [facility] [address] [place] [address], * (ABNORMAL) Complete blood count (03/29/2024 6:53 AM EST) WBC 11.0(H) 4.8 - 10.8 K/mcL LAB HEMETOLOGY METHOD 03/29/2024 9:47 AM [facility] RBC 2.80(L) 3.80 - 4.80 M/[facility] LAB HEMETOLOGY METHOD 03/29/2024 9:47 AM WHITE [...] Resul t [facility] [address] [place] [address], documented in this encounter Visit Diagnoses Diagnosis End stage renal disease (CMS/HCC V24, CMS/HCC V28) End stage renal disease documented in this encounter Care Teams Locomotive Engineer Diesel Relationship Specialty Start Date End Date Marita Wetzel DO [address] [place] [address] PCP - General 01/09/23 documented as of this encounter
--- OUTSIDE RECORDS SUMMARY | 2024-08-24 12:49 | XMS_ITS | Encounter Summary ---
Author Organization [facility] Address [address] [place] [address] Phone Care Team Providers Care Legislators Name Role Phone Marita Wetzel DO Primary Care Provider Unava ilable Encounter Details Date Type Department Care Team (Late st Contact Info) Description 06/23/2023 Documentation Only [facility] [address] [place] [phone] [place], [place] [address] [place] [phone] Social History Tobacco Use Types Packs/Day Years [...] [facility] [address] [place] [phone] 11/03/2024 12:30 PM EDT Scheduled Only [facility] [address] [place] [phone] documented as of this encounter Visit Diagnoses Not on filedocumented in this encounter Care Teams Legislators Relationship Specialty Start Date End Date Marita Wetzel DO [address] [place] [address] PCP - General Family Medicine 11/14/22 documented as of this encounter
--- OUTSIDE RECORDS SUMMARY | 2024-08-24 12:49 | XMS_ITS | Encounter Summary ---
Author Organization [facility] Address [address] [place] [address] Care Team Providers Care Learning And Development Associate Name Role Phone Mary JaneMarita yousif Primary Care Provider +1- [phone] Encounter Details Date Type Department Care Team (Late st Contact Info) Description 03/05/[address] [facility] - Main Lab [address] [facility] [place] [address] Catalina Burr MD [address] [place] [address] Chronic embolism and thrombosis of unspecified vein; [...] or for research. Test performed at [facility], [address], [place], [place] [address] ? [phone] Ashtyn Leigh MD, PhD - Director Global Strategic Publisher Sales Blood Venous blood specimen / Unknown Venipuncture / Unknown 03/08/2024 6:29 AM EST 03/08/2024 7:46 AM EST us Catalina Burr MD LAB BLOOD ORDERABLES Final Resul t [facility] [address] [place] [address] * (ABNORMAL) Renal function panel (03/08/2024 6:29 [...] LAB CHEMISTRY METHOD 03/08/2024 8:58 AM EST [facility] Albumin 2.3(L) 3.2 - [...] t [facility] [address] [place] [address], [place] [phone] * (ABNORMAL) Complete blood count (03/08/2024 6:29 AM EST) WBC 9.8 4.8 - 10.8 K/mcL LAB HEMETOLOGY METHOD 03/08/2024 8:10 AM [facility] RBC 2.90(L) 3.80 - 4.80 M/[facility] LAB HEMETOLOGY METHOD 03/08/2024 8:10 AM [facility] Hemoglobin 7.9(L) 11.5 - 16.0 g/dL LAB HEMETOLOGY METHOD 03/08/2024 8:10 AM [facility] Hematocrit 28.5(L) 35.0 - 47.0 % LAB HEMETOLOGY METHOD 03/08/2024 8:10 AM [facility] MCV 99.3(H) 79.0 - 98.0 FL LAB HEMETOLOGY METHOD 03/08/2024 8:10 AM EST [facility] MCH 27.5 27.0 - 32.0 pcg LAB HEMETOLOGY METHOD 03/08/2024 8:10 AM EST [facility] MCHC 27.7(L) 32.0 - 37.0 g/dL LAB HEMETOLOGY METHOD 03/08/2024 8:10 AM EST [facility] RDW 17.2(H) 11.0 - 15.0 % LAB HEMETOLOGY METHOD 03/08/2024 8:10 AM EST [facility] Platelets 299 130 - 400 K/mcL LAB HEMETOLOGY METHOD 03/08/2024 8:10 AM EST [facility] MPV 11.5(H) 7.0 - 11.0 FL LAB HEMETOLOGY METHOD 03/08/2024 8:10 AM EST [facility] NRBC 0.0 <1.0 % LAB HEMETOLOGY METHOD 03/08/2024 8:10 AM EST [facility] NRBC Absolute 0.00 <0.10 K/mcL LAB HEMETOLOGY METHOD 03/08/2024 8:10 AM EST [facility] Blood Venous blood specimen / Unknown Venipuncture / Unknown 03/08/2024 6:29 AM EST 03/08/2024 7:46 AM EST us Catalina Burr MD LAB BLOOD ORDERABLES Final Resul t [facility] [address] [place] [address], documented in this encounter Visit Diagnoses Diagnosis Chronic embolism and thrombosis of unspecified vein Acute kidney failure, unspecified (CMS/HCC V24) Acute kidney failure, unspecified Type 2 diabetes mellitus without complications (CMS/HCC V24, CMS/HCC V28) documented in this encounter Care Teams Learning And Development Associate Relationship Specialty Start Date End Date Marita Wetzel DO [address] [place], [place] PCP - General 01/09/23 documented as of this encounter
--- OUTSIDE RECORDS SUMMARY | 2024-08-24 12:49 | XMS_ITS | Encounter Summary ---
Author Organization [facility] Address [address] [place] [address] Phone Care Team Providers Care Registered Nurse Obstetrics Name Role Phone Marita Wetzel DO Primary Care Provider Unava ilable Encounter Details Date Type Department Care Team (Late st Contact Info) Description 01/01/2024 Documentation Only [facility] [address] [place] [address] [place], [place], [place] [address] [place] [phone] Social History Tobacco Use Types Packs/Day Years [...] Support [facility] Center [address] [phone] 11/03/2024 12:30 PM EDT Scheduled Only [facility] Access [place] [address] [place] [phone] documented as of this encounter Visit Diagnoses Not on filedocumented in this encounter Care Teams Registered Nurse Obstetrics Relationship Specialty Start Date End Date Marita Wetzel DO [address] [place] [address] PCP - General Family Medicine 11/14/22 documented as of this encounter
--- OUTSIDE RECORDS SUMMARY | 2024-08-24 12:49 | XMS_ITS | Encounter Summary ---
Author Organization [facility] Address [address] [place] [address] Phone Care Team Providers Care Senior Software Qa Analyst Name Role Phone Marita Wetzel DO Primary Care Provider Unava ilable Encounter Details Date Type Department Care Team (Late st Contact Info) Description 04/17/2024 Documentation Only [facility] [address] [place] [address] [place], [place], [place] [address] [place] [phone] Social History Tobacco Use Types Packs/Day Years [...] Support [facility] Center [address] [place] [phone] 11/03/2024 12:30 PM EDT Scheduled Only [facility] V[facility] Access [place] [address] [place] [phone] documented as of this encounter Visit Diagnoses Not on filedocumented in this encounter Care Teams Senior Software Qa Analyst Relationship Specialty Start Date End Date Marita Wetzel DO [address] [place] [address] PCP - General Family Medicine 11/14/22 documented as of this encounter
--- OUTSIDE RECORDS SUMMARY | 2024-08-24 12:49 | XMS_ITS | Clinical Summary ---
Author Organization [address] [facility] Address [address] [place] [address] Phone Care Team Providers Care Boilermaker Apprentice Name Role Phone Marita Wetzel Primary Care Provider +1- [phone] Encounters Date Type Department Care Team Description 05/31/2024 Lab Requisition [facility] Lab [address] [place] [phone] Marily Gordillo MD Acute kidney failure, unspecified (CMS/HCC V24); Chronic embolism and thrombosis of unspecified vein; Anemia, unspecified 05/30/2024 Lab Requisition [facility] Lab [address] [place] [phone] Marily Gordillo MD Chronic embolism and thrombosis of unspecified vein; Acute kidney failure, unspecified (CMS/HCC V24) from Last 3 Months Immunizations Name Administration [...] Zoster Vaccines (1 of 2) 11/14/2021 09/19/2021, 2022 Colorectal Cancer Screening: Colonoscopy 05/16/2023 HIV Screening [...] failure, unspecified (CMS/HCC) from Last 3 Months or Most Recently Relevant to Health Maintenance Results * (ABNORMAL) Renal function panel (05/10/2024 5:50 AM EST) Sodium 135 133 - 145 mmol/L LAB CHEMISTRY METHOD 05/10/2024 11:45 AM EST [facility] Potassium 3.8 3.5 - 5.5 mmol/L LAB CHEMISTRY METHOD 05/10/2024 11:45 AM EST [facility] Chloride 96 96 - 110 mmol/L LAB CHEMISTRY METHOD 05/10/2024 11:45 AM EST [facility] CO2 28 21 - 32 mmol/L LAB CHEMISTRY METHOD 05/10/2024 11:45 AM EST [facility] Anion Gap 11 3 - 11 LAB CHEMISTRY METHOD 05/10/2024 11:45 AM EST [facility] Glucose 215(H) 70 - 100 mg/dL LAB CHEMISTRY METHOD 05/10/2024 11:45 AM EST [facility] BUN 45(H) 5 - [...] Resul t [facility] [address] [place] [address], from Last 3 Months or Most Recently Relevant to Health Maintenance Insurance MEDICARE Care Teams Boilermaker Apprentice Relationship Specialty Start Date End Date Marita Wetzel DO [address] [place] [address] PCP - General 01/09/23
--- OUTSIDE RECORDS SUMMARY | 2024-08-24 12:49 | XMS_ITS | Encounter Summary ---
Author Organization [facility] [place], Address [address] [place] [address] Phone Care Team Providers Care Director Of Business Systems Name Role Phone Marita Wetzel DO Primary Care Provider Unava ilable Reason for Visit * Reason Comments Med Refill Encounter Details Date Type Department Care Team (Late Contact Info) Description 01/04/2021 Refill [facility] [address] [place] [phone] Bernardo Doty MD [address] [place] [phone] Social History Tobacco Use Types Packs/Day Years [...] Support [facility] [address] [place] [phone] 11/03/2024 12:30 PM EDT Scheduled Only [facility] [address] [place] [address] documented as of this encounter Visit Diagnoses Not on filedocumented in this encounter Care Teams Director Of Business Systems Relationship Specialty Start Date End Date Marita Wetzel DO [address] [place] [address] PCP - General Family Medicine 11/14/22 documented as of this encounter
--- OUTSIDE RECORDS SUMMARY | 2024-08-24 12:49 | XMS_ITS | Clinical Summary ---
Author Organization [employer] Address [address] [place] [address] 7 [place] [address] Care Team Providers Care Manager Fund Name Role Phone Damari Mairta Primary Care Provider [phone] Allergies Active Allergy Reactions Criticality Noted Date Comments Codeine Hives High 11/12/2011 Other reaction(s): FAINTING/HIVES Oxycodone 07/30/2022 Oxycodone-Acetaminophen Hives High 10/05/2012 Other reaction(s): Nausea / Vomiting Medications * This document contains information received from the source organization and may not represent a complete record from that organization. Continuous Blood Gluc Gold Nib Grinder (Geelbe Seema 2 [place]) device 3 Active dorzolamide-awa lol (Cosopt) 22.3-6.8 [...] 1 (one) time each day. 3 Active folic acid (Folvite) 1 MG tablet Take 1 tablet by mouth 1 (one) time each day. 3 Active cyanocobalamin (Vitamin B-12) 1000 MCG tablet Take 1 tablet by mouth in the morning. Active Continuous Blood Gluc Sensor (FreeStyle Seema 2 Sensor) [facility] Use as directed Active mycophenolate (Myfortic) 360 MG EC tablet Take 720 mg by mouth 2 times daily. 4 Active pantoprazole (ProtoNix) 40 MG EC tablet TAKE 1 TABLET (40 MG) BY MOUTH DAILY BEFORE BREAKFAST DO NOT CRUSH, CHEW, OR SPLIT 4 Active tacrolimus ER (Envarsus XR) 1 MG tablet ER Take 6 mg by mouth Once per day. Dose as per renal/transplan t team in accordance with labs. 4 Active isosorbide mononitrate ER (Imdur) 30 [...] mouth 4 times daily. 4 Active Procrit 67037 UNIT/ML injection 4 Active insulin glargine (Lantus [...] >351=14 units & call office 4 Active sertraline (Zoloft) 25 MG tablet TAKE 1 TABLET BY MOUTH EVERY DAY IN THE MORNING 30 tablet 3 5 Active hydrOXYzine pamoate (Vistaril) 25 MG capsule TAKE 1 CAPSULE BY MOUTH EVERY 6 HOURS NEEDED FOR ANXIETY 30 capsule 1 5 Active carvedilol (Coreg) 25 MG tablet TAKE 1 TABLET BY MOUTH EVERY DAY IN THE MORNING AND IN THE EVENING WITH MEALS 90 tablet 5 Active Active Problems Problem Noted Date Diagnosed [...] Encounters Date Type Department Care Team Description 08/24/2024 Orders Only [facility] External Provider, [facility] [place] 08/20/2024 Telephone [facility] [address] [place] [address] Marita Wetzel, No Show 07/21/2024 Refill [facility] [address] [place] [place] [address] Marita Wetzel, 07/19/2024 Telephone [facility] [address] [place] [address] Marita Wetzel, Results 07/06/2024 Telephone [facility] [address] [place] [address] Marita Wetzel, Medication Question 07/01/2024 Orders Only GENERIC EXTERNAL DATA DEPARTMENT Provider, Generic External Data 06/25/2024 Telephone [facility] [address] [place] [address] Marita Wetzel, Nurse Triage 06/25/[address] [place] [address] Marita Wetzel, Med Refill 06/22/2024 Telephone [facility] [address] [place] [address] Marita Wetzel, Medication Question 06/17/2024 Refill [facility] [address] [place] [address], [place] [address] Marita Wetzel, 06/11/2024 Patient Outreach [address] [address] Marita Wetzel, Transition Of Care (Tcm) (HDF unscheduled) 06/11/[address] [place] [address] Marita Wetzel, Hospital Follow-up 05/27/2024 Orders Only GENERIC EXTERNAL DATA DEPARTMENT Provider, Generic External Data from Last 3 Months Immunizations Name Administration [...] Vaccine ( season) 2023 02/01/2022, 06/22/2020, 05/25/2020 SDOH Screening 07/14/2024 07/15/2023 Lipid Panel 10/05/2024 10/06/2023 Diabetes: Hemoglobin A1C 10/18/2024 024, 02/03/2024, 12/09/2023, Additional history exists Tobacco Screening 12/08/2024 12/09/2023 Mammogram 07/16/2025 07/17/2023, [...] VIEWS Routine 08/24/2024 11:3 9 AM EDT XR CHEST 2 VIEWS Routine 07/07/2024 2:14 [...] disease, without long-term current use of insulin ([facility]) LIPID PANEL, STANDARD Routine 10/06/2023 BI MAMMOGRAM SCREENING TOMOSYNTHESIS BILATERAL Routine 07/17/2023 10:45 AM EDT HM PAP/HPV Routine 08/12/2018 from Last 3 Months or Most Recently Relevant to Health Maintenance Results * XR Chest 2 Views (08/24/2024 11:39 AM EDT) Only the most recent of2 resultswithin the time period is included. Anatomical Region Laterality Modality Chest Radiographic Lily ging 08/24/2024 11:3 9 AM EDT Narrative 08/24/2024 12:03 PM EDT ? [facility] [place] ?[address] ?[place] [address] ?XRay Report ? Signed ? Patient: Farhan Sharpa Melisa ?MR#: [id number] ?? 43 ? : 1960 ?Acct:[id number] ? Age/Sex: 64 / F ?ADM Date: 08/24/24 ? Loc: HO.XRAY ? Attending Dr: KMI KATZ MD ? Ordering Physician: Kim Katz MD ?? Date of Service: 08/24/24 ?? Procedure(s): XR chest 2V ?? Accession Number(s): [id number] ? cc: Kim Katz MD; Marita Wetzel DO ? EXAMINATION: ?? [...] unchanged. ?? Right-sided Port-A-Cath remains at the [facility]. ?? Calcified plaque aortic arch. ?? Multilevel [...] Calixto MD ??08/24/2024 12:00 PM ?? EDT RP ? Dictated By: ?Zay Urena MD ? Signed By: ?<Electronically signed by Zay Holloway MD in OV> ? 08/24/24 1200 ? DD/ 1139 ? TD/TT: 08/24/24 1149 ? Bag Sealer: ? Procedure Note Donotuseinterpreter, Image - 08/24/[address] [address] XRay Report Signed Patient: Ailx Sharp BMR#: [id number] 43 : 1960cct:[id number] Age/Sex: 64 / FADM Date: 08/24/24 Loc: HO.XRAY Attending Dr: KIM KATZ MD Ordering Physician: Kim Katz MD Date of Service: 08/24/24 Procedure(s): XR chest 2V Accession Number(s): [id number] cc: Kim Katz MD; Marita Wetzel DO EXAMINATION: XR CHEST CLINICAL INFORMATION: A43.9 - Nocardiosis, unspecified COMPARISON: July 07, 2024. TECHNIQUE: 2 views of the chest were obtained. FINDINGS: Meniscal shaped opacity right lower hemithorax. Pulmonary reticular pattern. Patchy opacities, right lung. No pneumothorax. Cardiomediastinal silhouette size is prominent, unchanged. Right-sided Port-A-Cath remains at the S[facility]. Calcified plaque aortic arch. Multilevel mild thoracic and upper lumbar spondylosis. XR/XR chest 2V IMPRESSION: Airspace disease, right lung and moderate to large volume right-sided pleural effusion. Right-sided empyema versus loculated effusion cannot be excluded.. Overall slight improved aeration since prior exam. Cardiomegaly versus pericardial effusion. Electronically signed by: Zay Calixto MD 08/24/2024 12:00 PM EDT Dictated By: Zya Urena MD Signed By: <Electronically signed by Zay Holloway MDin OV> 08/24/24 1200 DD/ 1139 TD/TT: 08/24/24 1149 Bag Sealer: [facility] External Provider IMG XR PROCEDURES Final Result * XR Chest 1 View (06/04/2024 5:19 AM EST) Only the most recent of2 resultswithin the time period is included. Anatomical Region Laterality Modality Chest Radiographic Lily ging 06/04/2024 5:19 AM EST Narrative 06/04/2024 5:20 AM EST ? [facility] [place] ?[address] ?[place], [place] [address] ?XRay Report ? Signed ? Patient: Alix Sharp ?MR#: [id number] ?? 43 ? : 1960 ?Acct:[id number] ? Age/Sex: 64 / F ?ADM Date: 05/28/24 ? Loc: HO.IMC ?477-1 ? Attending Dr: Malik Orozco MD ? Ordering Physician: Nirav Osborn MD ?? Date of Service: 06/03/24 ?? Procedure(s): XR chest 1V ?? Accession Number(s): [id number] ? cc: Marita Wetzel DO; Nirav Osborn [...] DD/ 0519 ? TD/TT: 06/04/24 0519 ? Bag Sealer: ? Procedure Delvis Rizo - 06/04/2024 [facility] [address] [place] [address] XRay Report Signed Patient: Frahan Sharpa BMR#: [id number] [birth year] : 1Acct:[id number] Age/Sex: 64 / FADM Date: 05/28/24 Loc: [facility] 477-[address]: Malik Orozco MD Ordering Physician: Nirav Osborn MD Date of Service: 06/03/24 Procedure(s): XR chest 1V Accession Number(s): [id number] cc: Marita Wetzel DO; Nirav Osborn MD [...] Hobbs MD in OV> 06/04/24 0520 DD/ 8 TD/TT: 06/04/24518 Bag Sealer: [facility] External Provider IMG XR PROCEDURES Final Result * CT Chest w/ Contrast (05/31/2024 7:00 AM EST) Anatomical Region Laterality Modality Body, Chest Computed Tomogra phy 05/31/2024 7:00 AM EST Narrative 05/31/2024 9:38 AM EST ? [facility] [place] ?[address] ?[place] [address] ? CT Scan Report ? Signed ? Patient: West,Alix B ?MR#: [id number] ?? 43 ? : 1960 ?Acct:[id number] ? Age/Sex: 64 / F ?ADM Date: 02/07/25 ? Loc: HO.IMC ?477-1 ? Attending Dr: Ab Barba MD ? Ordering Physician: Malik Orozco MD ?? Date of Service: 05/31/24 ?? Procedure(s): CT chest w IV con ?? Accession Number(s): [id number] ? cc: Malik Orozco MD; Marita Wetzel DO ? Report Number: ?? [id number]: Total DLP = ??187.00 mGy-cm ?? EXAMINATION: [...] DD/ 0700 ? TD/TT: 05/31/24 0905 ? Bag Sealer: ? Procedure Note Delvis Grant - 05/31/[address] [place] [address] [address] Scan Report Signed Patient: Alix Sharp BMR#: [id number] 43 : 1960cct:[id number] Age/Sex: 64 / FADM Date: 05/28/24 Loc: .[facility] 477-[address]: Ab Barba MD Ordering Physician: Mailk Orozco MD Date of Service: 05/31/24 Procedure(s): CT chest w IV con Accession Number(s): [id number] cc: Malik Orozco MD; Marita Wetzel DO Report Number: [id number]: Total DLP = 187.00 mGy-cm EXAMINATION: CT [...] OV> 05/31/2435 DD/ 07 TD/TT: 05/31/24 0905 Bag Sealer: [facility] External Provider IMG CT PROCEDURES Edited Result - Final * Mr Brain w/ and w/o Contrast (05/30/2024 2:27 PM EST) Anatomical Region Laterality Modality Brain Magnetic Resonan ce 05/30/2024 2:27 PM EST Narrative 05/30/2024 2:30 PM EST ? [place] [facility] ?[address] ?[place] [address] ? Magnetic Resonance Report ? Signed with Addenda ? Patient: West,Alix B ?MR#: [id number] ?? 43 ? : 1960 ?Acct:[id number] ? Age/Sex: 64 / F ?ADM Date: 05/28/24 ? Loc: HO.IMC ?477-1 ? Attending Dr: Malik Orozco MD ? Ordering Physician: Malik Orozco MD ?? Date of Service: 05/30/24 ?? Procedure(s): MR head/brain wo/w con ?? Accession Number(s): [id number] ? cc: Malik Orozco MD; Marita Wetzel [...] ? 05/30/241428 ? DD/ 26 ? TD/TT: 05/30/24 142 ? Bag Sealer: ? Procedure Note Juanita, Image - 05/30/2024 [place] [address] Magnetic Resonance Report Signed with Addenda Patient: Alix Sharp BMR#: [id number] 43 : 1960cct:[id number] Age/Sex: 64 / FADM Date: 05/28/24 Loc: [facility] 477-[address]: Malik Orozco MD Ordering Physician: Malik Orozco MD Date of Service: 05/30/24 Procedure(s): MR head/brain wo/w con Accession Number(s): [id number] cc: Malik Orozco MD; Marita Wetzel DO [...] OV> 05/30/24 1429 DD/ 26 TD/TT: 05/30/241426 Bag Sealer: [facility] External Provider IMG MRI PROCEDURES Edited Result - Final * VASC US Carotid Artery Duplex Bilateral (05/30/2024 1:41 PM EST) 05/30/2024 1:41 PM EST Narrative [facility] - 05/31/2024 8:14 AM EST ? [facility] ?[address] ?[place] [address] ? Ultrasound Report ? Signed ? Patient: Alix Sharp ?MR#: [id number] ?? 43 ? : 1960 ?Acct:[id number] ? Age/Sex: 64 / F ?ADM Date: 05/28/24 ? Loc: HO.IMC ?477-1 ? Attending Dr: bA Barba MD ? Ordering Physician: Malik Orozco MD ?? Date of Service: 05/30/24 ?? Procedure(s): US carotid duplex BI ?? Accession Number(s): [id number] ? cc: Malik Orozco MD; Marita Wetzel [...] DD/ 1341 ? TD/TT: 05/30/24 1352 ? Bag Sealer: ? Procedure Note Delvis Grant - 05/31/[address] [address] Ultrasound Report Signed Patient: Genaro Sharpessa BMR#: [id number] 43 : 1Acct:[id number] Age/Sex: 64 / FADM Date: 05/28/24 Loc: .[facility] 477-[address]: Ab Barba MD Ordering Physician: Malik Orozco MD Date of Service: 05/30/24 Procedure(s): US carotid duplex BI Accession Number(s): [id number] cc: Malik Orozco MD; Marita Wetzel DO [...] 05/31/24 0812 DD/ 1341 TD/TT: 05/30/24 1352 Bag Sealer: us [facility] External Provider CV VASC ULAR PROCEDURES Edited Result - Final [facility] [address] [place] [address] * CT Head Stroke w/o Contrast (05/30/2024 11:28 AM EST) Anatomical Region Laterality Modality Computed Tomogra phy 05/30/2024 11:2 8 AM EST Narrative 05/30/2024 11:30 AM EST ? [facility] ?[address] ?[place] [address] ? CT Scan Report ? Signed with Addenda ? Patient: West,Alix B ?MR#: [id number] ?? 43 ? : 1960 ?Acct:[id number] ? Age/Sex: 64 / F ?ADM Date: 05/28/24 ? Loc: HO.IMC ?477-1 ? Attending Dr: Malik Orozco MD ? Ordering Physician: Malik Orozco MD ?? Date of Service: 05/30/24 ?? Procedure(s): CT head for STROKE ?? Accession Number(s): [id number] ? cc: Malik Orozco MD; Marita Wetzel DO ? Report Number: ?? [id number]: Total DLP = ??749.00 mGy-cm ?ADDENDUM ?? This document has been electronically signed by: Yoni [place] MD on ?? 05/30/2024 11:28:55 ? ADDENDUM: ?? This report was discussed with Pam Gan ??on May 30, 2024 11:37:00 EST. ? This document has been electronically signed by: Mohan Floresssica on ?? 05/30/2024 11:37:15 ? Addendum Dictated By: ?Yoni [place] MD ? Addendum Signed By: ? <Electronically signed by Yoni [place] MD in OV> ? 05/30/24 1138 ?? Addendum Cosigned By: ? DD/ /14/1128 ? TD/TT: 05/30/2401/13/1137 ? CLINICAL HISTORY: LUE weakness ? CT head without contrast. ? Comparison: CT/SR - CT HEAD/BRAIN WO IV CON - 2// 20:50 EST ?? CT/REG/SR - CT HEAD/BRAIN WO CON - 11/29/21 09:45 EDT ?? CT/SR - BRAIN WO IV CONTRAST [id number] - 09/16/18 13:47 EDT ? Findings: ?? [...] DD/ 1128 ? TD/TT: 05/30/24 1128 ? Bag Sealer: ? Procedure Note Delvis Grant - 05/30/[address] [place] [address] [address] Scan Report Signed with Daniel Patient: Alix Sharp BMR#: [id number] 43 : 1960cct:[id number] Age/Sex: 64 / FADM Date: 05/28/24 Loc: [facility] 477-[address]: Malik Orozco MD Ordering Physician: Malik Orozco MD Date of Service: 05/30/24 Procedure(s): CT head for STROKE Accession Number(s): [id number] cc: Malik Orozco MD; Marita Wetzel DO Report Number: [id number]: Total DLP = 749.00 mGy-cm ADDENDUM This [...] EDT CT/SR - BRAIN WO IV CONTRAST [id number] - 09/16/18 13:47 EDT Findings: Findings concerning [...] OV> 05/30/24 1130 DD/ 27 TD/TT: 05/30/241127 Bag Sealer: [facility] External Provider IMG CT PROCEDURES Edited Result - Final * (ABNORMAL) Basic Metabolic Panel (05/27/2024 11:34 PM EST) Sodium 135 135 - 145 mmol/L [facility] Potassium 6.1(HH) 3.3 - 5.1 mmol/L [facility] Comment:Critical value for t est(s): POTS Results called to and readback by: ELICEO Person calling: TIMI Date:05/27/24 Time:2359 Chloride 104 96 - 108 mmol/L [facility] Carbon Dioxide 23 22 - 29 mmol/L [facility] Anion Gap 14 12 - 20 [facility] Urea Nitrogen (BUN) 50(H) 9 - 16 mg/dL [facility] Creatinine, Serum 3.04(H) 0.5 - 1.4 mg/dL [facility] Creatinine Clr Calc Pharmacy 14.1 [facility] Comment:Provided height and weight: 167.64 cm,48 kg.eGFR (calculated from the MDRD study equation) and eCrCl(calculated from the Cockcroft-Gault equation) are based ondifferent parameters and may not yield comparable results.If eCrCl result is absurd, please check patient'sheight/weight. Estimated Glomerular Filt Rate 15 [facility] Comment:Chronic Kidney Disea se: Estimated GFR < 60 mL/min/1.35v1Pqjkkw Kidney Disease: Estimated GFR < 15 mL/min/1.73m2 Glucose 76 60 - 115 mg/dL [facility] Calcium 9.4 8.4 - 10.2 mg/dL [facility] 05/27/2024 11:3 4 PM EST 05/27/2024 11:37 PM EST us Generic External Data Provider LAB BLOOD ORDERAB LES Final Result [facility] [address] [place] [address] [phone] * Lactic Acid (05/27/2024 9:44 PM EST) Lactic Acid 0.5 0.5 - 2.0 mmol/L [facility] 05/27/2024 9:44 PM EST 05/27/2024 9:54 PM EST us Generic External Data Provider LAB BLOOD ORDERAB LES Final Result [facility] [address] [facility] [address] [phone] * CT Head w/o Contrast (05/27/2024 9:42 PM EST) Anatomical Region Laterality Modality Head, Neck Computed Tomogra phy 05/27/2024 9:42 PM EST Narrative 05/27/2024 9:44 PM EST ? [facility] ?[address] ?[place] [address] ? CT Scan Report ? Signed ? Patient: Aron,Alix B ?MR#: [id number] ?? 43 ? : 1960 ?Acct:[id number] ? Age/Sex: 64 / F ?ADM Date: 05/27/24 ? Loc: HO.ED ? Attending Dr: ? Ordering Physician: Jerod Simons ?? Date of Service: 05/27/24 ?? Procedure(s): CT head/brain wo IV con ?? Accession Number(s): [id number] ? cc: Marita Wetzel DO; Jerod Simons ? Report Number: ?? [id number]: Total DLP = 1132.00 mGy-cm ? CLINICAL [...] Restrepo MD in OV> ?05/27/242142 ? DD/ 2142 ? TD/TT: 05/27/242141 ? Bag Sealer: ? Procedure Note Donhetalter, Image - 05/27/[address] [address] [address] Scan Report Signed Patient: Alix Sharp BMR#: [id number] 43 : 1960cct:[id number] Age/Sex: 64 / FADM Date: 05/27/24 Loc: HO.ED Attending Dr: Ordering Physician: Jerod Simons Date of Service: 05/27/24 Procedure(s): CT head/brain wo IV con Accession Number(s): [id number] cc: Marita Wetzel DO; Jerod Simons Report Number: [id number]: Total DLP = 1132.00 mGy-cm CLINICAL HISTORY: [...] in OV> 05/27/242142 DD/ 41 TD/TT: 05/27/242141 Bag Sealer: [facility] External Provider IMG CT PROCEDURES Final Result * POCT HGB A1C (12/09/2023 9:43 AM EDT) Pathologist [facility] Hemoglobin A1C 5.9 4.0 - 6.0 % QC Media Lot # [id number] Lot# Expiration Date [id number] Blood 12/09/2023 9:43 AM EDT Marita Wetzel DO POINT OF CARE TEST ENTER/HUMBERTO T ORDERABLES Final Result * (ABNORMAL) Lipid Panel, Standard (10/06/2023) Pathologist [facility] Triglycerides 157 40 - 160 mg/dL Cholesterol 115 0 - 200 mg/dL HDL Cholesterol 31(A) 35 - 70 mg/dL LDL Cholesterol 57 mg/dL Blood Venous blood specimen / Unknown Historical Provider MD LAB BLOOD ORDERABLES Carly l Result * BI Mammogram Screening Tomosynthesis Bilateral (07/17/2023 10:45 AM EDT) Anatomical Region Laterality Modality Breast Bilateral Mammography 07/17/2023 10:4 5 AM EDT Narrative 08/03/2023 8:29 PM EDT ? [facility] [place] ? [address] ?[place] [address] ? Mammography Report ? Signed ? Patient: West Batista,Alix F ?MR#: ?? [id number] ? : 1960 ?Acct:[id number] ? Age/Sex: 63 / F ?ADM Date: 03/28/24 ? Loc: HO.MAMMO ? Attending Dr: Marita Wetzel DO ? Ordering Physician: Marita Wetzel DO ?Results: 2B ?? enign Findings ? Date of Service: 07/17/23 ?Follow Up: 1 Year From Orig ?? inal Mammogram ? Procedure(s): MM tomosynthesis screening BI ?? Accession Number(s): [id number] ? cc: Marita Wetzel DO ? EXAMINATION: [...] 08/03/232024 ? DD/ 44 ? TD/TT: ? Bag Sealer: ? Procedure Note Donotfelixter, Image - 08/03/2023 [place] [facility] [address] [place] [address] Mammography Report Signed Patient: Alix Dennis FMR#: [id number] : 1Acct:[id number] Age/Sex: 63 / FADM Date: 07/17/23 Loc: HO.MAMMO Attending Dr: Marita Wetzel DO Ordering Physician: Marita Wetzelults: 2B enign Findings Date of Service: 07/17/23Follow Up: 1 Year From Orig ina Mammogram Procedure(s): MM tomosynthesis screening BI Accession Number(s): [id number] cc: Marita Wetzel DO EXAMINATION: MM SCREENING [...] MD in OV> 08/03/232024 DD/ 1045 TD/TT: Bag Sealer: Marita Damari DO IMG BI PROCEDURES Edited Res ult - Final * Hm Pap Smear (08/12/2018) Pap Negative for intraephithelial lesion or malignancy Negative for intraephithelial lesion or malignancy, Other HPV Undetected Undetected, Indeterminate, Quantitative, Not Detected Historical Provider HEALTH MAINTENANCE Final Result from Last 3 Months or Most Recently Relevant to Health Maintenance Insurance MEDICARE [facility] [place] [employer] Care Teams Manager Fund Relationship Specialty Start Date End Date Marita Wetzel DO [address] [place] [address] PCP - General Family Medicine 04/21/18 [facility] 05/22/24
--- OUTSIDE RECORDS SUMMARY | 2024-08-24 12:49 | XMS_ITS | Encounter Summary ---
Author Organization [facility] Address [address] [place] [address] Care Team Providers Care Solderer Furnace Name Role Phone Marita Wetzel Primary Care Provider +1- [phone] Encounter Details Date Type Department Care Team (Late st Contact Info) Description 04/17/2024 Lab Requisition [facility] - Main Lab [address] [facility] [place] [phone] Marily Gordillo MD [address] [place] [address] Chronic embolism and thrombosis of [...] and the performance characteristics determined by [facility]. This confirmation testing has not been cleared or approved by the FDA. The laboratory is regulated under CLIA as qualified to perform high-complexity testing. This test is used for patient testing purposes. It should not be regarded as investigational or for research. Test performed at [facility], [facility] [address], [place], [place] ??[address] ? [phone] Ashtyn Leigh MD, PhD - Thermodynamics Engineer Blood Venous blood specimen / Unknown Venipuncture / Unknown 04/19/2024 6:21 AM EST 04/19/2024 8:33 AM EST us Marily Gordillo MD LAB BLOOD ORDERABLES Final Resul t [place] [address] * (ABNORMAL) Renal function panel [...] Resul t [facility] [address] [place] [address], * (ABNORMAL) Complete blood count (04/19/2024 6:21 [...] 9:26 AM EST [facility] MPV 10.9 7.0 - 11.0 [...] Resul t [facility] [address] [place] [address], documented in this encounter Visit Diagnoses Diagnosis Chronic embolism and thrombosis of unspecified vein Acute kidney failure, unspecified (CMS/HCC V24) Acute kidney failure, unspecified documented in this encounter Care Teams [employer] Relationship Specialty Start Date End Date Marita Wetzel DO [address] [place] [address] PCP - General 01/09/23 documented as of this encounter
--- OUTSIDE RECORDS SUMMARY | 2024-08-24 12:49 | XMS_ITS | Encounter Summary ---
Author Organization [facility] Address [address] [place] [address] Care Team Providers Care Binder Fixer Name Role Phone Marita Wetzel Primary Care Provider +1- [phone] Encounter Details Date Type Department Care Team (Late st Contact Info) Description 02/25/2024 Lab Requisition [facility] - Main Lab [address] [facility] [place] [address] Catalina Burr MD [address] [place] [address] Chronic embolism and thrombosis of unspecified vein; [...] phlebotomy fee (02/25/2024 6:30 AM EST) [facility] TRAVEL PHLEBOTOMY FEE Completed 02/25/2024 11:01 AM EST [facility] Blood Venous blood specimen / Unknown Venipuncture / Unknown 02/25/2024 6:30 AM EST 02/25/2024 10:25 AM EST us Catalina Burr MD LAB BLOOD ORDERABLES Final Resul t [facility] [address] [place] [address], * (ABNORMAL) Tacrolimus level (02/25/2024 6:30 AM [...] [facility], [address] , [place], [place] ??[address] ? [phone] Ashtyn Leigh MD, PhD - Papier Mache Molder Blood Venous blood specimen / Unknown Venipuncture / Unknown 02/25/2024 6:30 AM EST 02/25/2024 10:25 AM EST us Catalina Burr MD LAB BLOOD ORDERABLES Final Resul t [facility] [address] [place] [address] documented in this encounter Visit Diagnoses Diagnosis Chronic embolism and thrombosis of unspecified vein Acute kidney failure, unspecified (CMS/HCC V24) Acute kidney failure, unspecified documented in this encounter Care Teams Binder Fixer Relationship Specialty Start Date End Date Marita Wetzel DO [address] [place] [address] PCP - General 01/09/23 documented as of this encounter
--- OUTSIDE RECORDS SUMMARY | 2024-08-24 12:49 | XMS_ITS | Encounter Summary ---
Author Organization [facility] Address [address] [place] [address] Care Team Providers Care Yard Attendant Name Role Phone Marita Wetzel DO Primary Care Provider +1- [phone] Encounter Details Date Type Department Care Team (Late st Contact Info) Description 03/15/2024 Lab Requisition [facility] - Main Lab [address] [facility] [place] [phone] Catalina Burr MD [address] [place] [address] Acute kidney failure, unspecified (CMS/HCC V24); Chronic embolism and thrombosis of unspecified vein [...] Visit Diagnoses Diagnosis Acute kidney failure, unspecified (CMS/HCC V24) Acute kidney failure, unspecified Chronic embolism and thrombosis of unspecified vein documented in this encounter Care Teams Yard Attendant Relationship Specialty Start Date End Date Marita Wetzel DO [address] [place], [place] PCP - General 01/09/23 documented as of this encounter
--- OUTSIDE RECORDS SUMMARY | 2024-08-24 12:49 | XMS_ITS | Encounter Summary ---
Author Organization [facility] Address [address] [place] [address] Phone Care Team Providers Care Case Fitter Name Role Phone Marita Wetzel DO Primary Care Provider Unava ilable Encounter Details Date Type Department Care Team (Late st Contact Info) Description 04/13/2024 Documentation Only [facility] [address] [place] [address] [place], [place], [place] [address] [place] [address] Social History Tobacco Use Types Packs/Day Years [...] Support [facility] Vascular Access Center [address] [place] [phone] 11/03/2024 12:30 PM EDT Scheduled Only [facility] Vascular Access [place] [address] [place] [phone] documented as of this encounter Visit Diagnoses Not on filedocumented in this encounter Care Teams Case Fitter Relationship Specialty Start Date End Date Marita Wetzel DO [address] [place] [address] PCP - General Family Medicine 11/14/22 documented as of this encounter
--- OUTSIDE RECORDS SUMMARY | 2024-08-24 12:49 | XMS_ITS | Encounter Summary ---
Author Organization [employer] Address [address] [facility] [address] [place] [address] Care Team Providers Care Reducer Name Role Phone Marita Wetzel DO Primary Care Provider + [phone] Reason for Visit * Reason Onset Date Comments Hospital Follow-up 06/11/2024 Encounter Details Date Type Department Care Team ([facility] st Contact Info) Description 06/11/[address] [facility] MEDICINE [address] [place] [address] Marita Wetzel DO [address] [place] [address] Hospital Follow-up Social History Tobacco Use Types [...] from pt requesting a HDF appt. Hospital: [facility] Date of admission: 05/31/2024 Discharge date: ------ Diagnosed:kidney failure *Send message to [place] Clinical Care Coordinators documented in this encounter Plan of Treatment Not on file documented as of this encounter Goals Goal Patient Goal Type Associated Problems Recent Progress Patient-Stated? Author Hemoglobin A1c < 7 Result Component 5.9( 4 9:43 AM EDT) No Jonathon Beckeryssa, PharmD Record your blood sugar as directed [...] documented as of this encounter Care Teams Reducer Relationship Specialty Start Date End Date Marita Wetzel DO [address] [place] [address] PCP - General Family Medicine 04/21/18 [facility] 2/1/25 documented as of this encounter
--- OUTSIDE RECORDS SUMMARY | 2024-08-24 12:49 | XMS_ITS | Encounter Summary ---
Author Organization [facility] Address [address] [place] [address] Care Team Providers Care Sharepoint Solutions Developer Name Role Phone Marita Wetzel Primary Care Provider +1- [phone] Encounter Details Date Type Department Care Team (Late st Contact Info) Description 03/30/2024 Lab Requisition [facility] - Main Lab [address] [facility] [place] [address] Catalina Burr MD [address] [place] [address] Chronic embolism and thrombosis of unspecified vein; [...] LAB CHEMISTRY METHOD 03/31/2024 12:06 PM EST [facility] Blood Venous blood specimen / Unknown Venipuncture / Unknown 03/31/2024 9:23 AM EST 03/31/2024 11:25 AM EST Catalina Burr MD LAB BLOOD ORDERABLES Final Resul t Performing Organization Address [facility]/ZIP Co de Phone Number [facility] [address] [place] [address], [place] [phone] * (ABNORMAL) Ferritin (03/31/2024 9:23 AM EST) Ferritin 6,203(H) 8 - 252 ng/mL LAB CHEMISTRY METHOD 03/31/2024 12:10 PM EST [facility] Blood Venous blood specimen / Unknown Venipuncture / Unknown 03/31/2024 9:23 AM EST 03/31/2024 11:25 AM EST Catalina Burr MD LAB BLOOD ORDERABLES Final Resul t Performing Organization Address [facility]/ZIP Co de Phone Number [facility] [address] [place] [address], [place] [phone] documented in this encounter Visit Diagnoses Diagnosis Chronic embolism and thrombosis of unspecified vein Acute kidney failure, unspecified (CMS/HCC V24) Acute kidney failure, unspecified documented in this encounter Care Teams Sharepoint Solutions Developer Relationship Specialty Start Date End Date Marita Wetzel DO [address] [place] [address] PCP - General 01/09/23 documented as of this encounter
--- OUTSIDE RECORDS SUMMARY | 2024-08-24 12:49 | XMS_ITS | Encounter Summary ---
Author Organization [facility], Address [address] [place] [address] Phone Care Team Providers Care Repeat Chief Name Role Phone Marita Wetzel DO Primary Care Provider Unava ilable Reason for Visit * Reason Comments Med Refill Encounter Details Date Type Department Care Team (Late Contact Info) Description 05/08/2021 Refill [facility] [address] [place] [phone] Bernardo Doty MD [address] [place] [phone] Social History Tobacco Use Types Packs/Day Years [...] Support [facility] Vascular Access Center [address] [place] [phone] 11/03/2024 12:30 PM EDT Scheduled Only [facility] Vascular Access Center [address] [place] [address] documented as of this encounter Visit Diagnoses Not on filedocumented in this encounter Care Teams Repeat Chief Relationship Specialty Start Date End Date Marita Wetzel DO [address] [place] [address] PCP - General Family Medicine 11/14/22 documented as of this encounter
--- OUTSIDE RECORDS SUMMARY | 2024-08-24 12:49 | XMS_ITS | Encounter Summary ---
Author Organization [facility] Address [address] [place] [address] Care Team Providers Care Child Development Consultant Name Role Phone Mary JaneMarita yousif Primary Care Provider +1- [phone] Encounter Details Date Type Department Care Team (Late st Contact Info) Description 02/24/2024 Lab Requisition [facility] - Main Lab 299 [facility] [place] [address] Norbert Lopez MD [address] [facility] [address] [facility] [address] Encounter for other specified prophylactic measures; Acute kidney failure, unspecified (CMS/HCC V24) Social [...] Travel phlebotomy fee (02/24/2024 12:45 PM EST) [facility] HOME TRAVEL PHLEBOTOMY FEE Completed 02/24/2024 2:01 PM EST [facility] Blood Venous blood specimen / Unknown Venipuncture / Unknown 02/24/2024 12:45 PM EST 02/24/2024 1:29 PM EST Norbert Lopez MD LAB BLOOD ORDERABLES Final Resul t Performing Organization Address [facility] Co de Phone Number [facility] [address] [place] [address], [place] [phone] * (ABNORMAL) Heparin and low molecular weight anti Xa level (02/24/2024 12:45 PM EST) [facility] Heparin Anti-Xa 0.28(L) 0.30 - 0.70 I Unit/mL LAB COAGULATION METHOD 02/24/2024 2:02 PM EST [facility] Blood Venous blood specimen / Unknown Venipuncture / Unknown 02/24/2024 12:45 PM EST 02/24/2024 1:29 PM EST Narrative [facility] - 02/24/2024 2:02 PM EST Therapeutic range listed is for Unfractionated Heparin. LMW Heparin therapeutic range: 0.50-1.20 IU/mL Norbert Lopez MD LAB BLOOD ORDERABLES Final Resul t Performing Organization Address City/[facility]/ZIP Co de Phone Number [facility] [address] [place] [address], [place] [phone] * (ABNORMAL) Basic metabolic panel (02/24/2024 12:45 PM EST) [facility] Sodium 137 133 - 145 mmol/L LAB CHEMISTRY METHOD 02/24/2024 3:10 PM [facility] Potassium 3.7 3.5 - 5.5 mmol/L LAB CHEMISTRY METHOD 02/24/2024 3:10 PM [facility] Chloride 104 96 - 110 mmol/L LAB CHEMISTRY METHOD 02/24/2024 3:10 PM [facility] CO2 22 21 - 32 mmol/L LAB CHEMISTRY METHOD 02/24/2024 3:10 PM [facility] Anion Gap 11 3 - 11 LAB CHEMISTRY METHOD 02/24/2024 3:10 PM [facility] Glucose 163(H) 70 - 100 mg/dL LAB CHEMISTRY METHOD 02/24/2024 3:10 PM [facility] BUN 33(H) 5 - 25 mg/dL LAB CHEMISTRY METHOD 02/24/2024 3:10 PM [facility] Creatinine 3.25(H) 0.50 - 1.10 mg/dL LAB CHEMISTRY METHOD 02/24/2024 3:10 PM [facility] eGFR 15(L) >=60 mL/min/1. 73m2 LAB CHEMISTRY METHOD 02/24/2024 3:10 PM [facility] Comment:Calculation based on the??Chronic Kidney Disease Epidemiology Collaboration (CKD-EPI) equation refit??without adjustment for race. BUN/Creatinine Ratio 10.2 LAB CHEMISTRY METHOD 02/24/2024 3:10 PM [facility] Calcium 9.4 8.5 - 10.5 mg/dL LAB CHEMISTRY METHOD 02/24/2024 3:10 PM [facility] Blood Venous blood specimen / Unknown Venipuncture / Unknown 02/24/2024 12:45 PM EST 02/24/2024 1:29 PM EST us Norbert Lopez MD LAB BLOOD ORDERABLES Final Resul t [facility] [address] [place] [address], * (ABNORMAL) Complete blood count (02/24/2024 12:45 PM EST) [facility] WBC 11.3(H) 4.8 - 10.8 K/mcL LAB HEMETOLOGY METHOD 02/24/2024 1:38 PM [facility] RBC 3.30(L) 3.80 - 4.80 M/mcL LAB HEMETOLOGY METHOD 02/24/2024 1:38 PM [facility] Hemoglobin 9.2(L) 11.5 - 16.0 g/dL LAB HEMETOLOGY METHOD 02/24/2024 1:38 PM [facility] Hematocrit 31.3(L) 35.0 - 47.0 % LAB HEMETOLOGY METHOD 02/24/2024 1:38 PM [facility] MCV 95.4 79.0 - 98.0 FL LAB HEMETOLOGY METHOD 02/24/2024 1:38 PM [facility] MCH 28.0 27.0 - 32.0 pcg LAB HEMETOLOGY METHOD 02/24/2024 1:38 PM [facility] MCHC 29.4(L) 32.0 - 37.0 g/dL LAB HEMETOLOGY METHOD 02/24/2024 1:38 PM [facility] RDW 16.6(H) 11.0 - 15.0 % LAB HEMETOLOGY METHOD 02/24/2024 1:38 PM [facility] Platelets 278 130 - 400 K/mcL LAB HEMETOLOGY METHOD 02/24/2024 1:38 PM [facility] MPV 10.7 7.0 - 11.0 FL LAB HEMETOLOGY METHOD 02/24/2024 1:38 PM [facility] NRBC 0.0 <1.0 % LAB HEMETOLOGY METHOD 02/24/2024 1:38 PM EST [facility] NRBC Absolute 0.00 <0.10 K/mcL LAB HEMETOLOGY METHOD 02/24/2024 1:38 PM EST [facility] Blood Venous blood specimen / Unknown Venipuncture / Unknown 02/24/2024 12:45 PM EST 02/24/2024 1:29 PM EST us Norbert Lopez MD LAB BLOOD ORDERABLES Final Resul t [facility] [address] [place] [address], documented in this encounter Visit Diagnoses Diagnosis Encounter for other specified prophylactic measures Acute kidney failure, unspecified (CMS/HCC V24) Acute kidney failure, unspecified documented in this encounter Care Teams Child Development Consultant Relationship Specialty Start Date End Date Marita Wetzel DO [address] [place] [address] PCP - General 01/09/23 documented as of this encounter
--- OUTSIDE RECORDS SUMMARY | 2024-08-24 12:50 | XMS_ITS | Encounter Summary ---
Author Organization [facility], Address [address] [place] [address] Phone Care Team Providers Care Airborne Electronics Analyst Name Role Phone Marita Wetzel DO Primary Care Provider Unava ilable Encounter Details Date Type Department Care Team (Latest Contact Info) Description 08/19/2024 11:30 AM EDT Clinical Support [facility], - Vascular Access Center [address] [place] [phone] Db Neumann MD [address] [place] [phone] End stage renal disease (HCC) (Primary Dx); History of renal transplant; Encounter for adjustment and management of vascular catheters Social History Tobacco Use Types Packs/Day Years [...] on file documented as of this encounter Last Filed Vital Signs Vital Sign Reading Time Taken Comments Blood Pressure 108/62 08/20/2024 7:55 AM EDT Pulse 67 08/20/2024 7:55 AM EDT Temperature - - Respiratory Rate - - Oxygen Saturation 94% 08/20/2024 7:55 AM EDT Inhaled Oxygen Concentration - - Weight - - Height - - Body Mass Index - - documented in this encounter Plan of Treatment Upcoming Encounters Date Type Department Care Team (Late st Contact Info) Description 09/16/2024 10:00 AM EDT Clinical Support [facility] Vascular Access Center [address] [place] [address] [place] [address] 11/03/2024 12:30 PM EDT Scheduled Only [facility] Vascular Access [address] [place] [address] documented as of this encounter Visit Diagnoses Diagnosis End stage renal disease (HCC)- Primary End stage renal disease History of renal transplant Encounter for adjustment and management of vascular catheters documented in this encounter Care Teams Airborne Electronics Analyst Relationship Specialty Start Date End Date Marita Wetzel DO [address] [place] [address] PCP - General Family Medicine 11/14/22 documented as of this encounter
--- OUTSIDE RECORDS SUMMARY | 2024-08-24 12:50 | XMS_ITS | Encounter Summary ---
Author Organization [facility] [place], Address PO [facility] [place] [address] Phone Care Team Providers Care Post Secondary Professional Name Role Phone Marita Wetzel DO Primary Care Provider Unava ilable Encounter Details Date Type Department Care Team (Late st Contact Info) Description 08/18/2024 Orders Only [facility] [address] [place] [phone] Srinivas Agrawal MD [address] [place] [address] [place] [phone] Social History Tobacco Use Types Packs/Day Years [...] Support [facility] Vascular Access Center [address] [place] [address] [place] [phone] 11/03/2024 12:30 PM EDT Scheduled Only [facility] Vascular Access [address] [place] [address] documented as of this encounter Procedures Procedure Name Priority Date/Time Associated Diagnosis Comments HEMATOLOGY Routine 08/18/2024 documented in this encounter Results * (ABNORMAL) HEMATOLOGY (08/18/2024) Hemoglobin 7.7(L) 12.0 - 16.0 g/dL [facility] Hemoglobin x 3 23.1(L) 36.0 - 48.0 % [facility] 08/18/2024 08/19/2024 9:0 0 AM EDT Narrative [facility] - 08/19/2024 Unless otherwise specified, test(s) performed at: [facility], [address] [place] [address] COUNTY HOME DEMONSTRATOR: Dwayne Fuentes M.D. For any questions, please call customer service at FREQUENCY:OTHER Resulting Agency Comment Specimen source: Blood Srinivas Agrawal MD LAB BLOOD ORDERABLES Final Result [facility] See order comments or contact performing lab Unknown, [place] documented in this encounter Visit Diagnoses Not on filedocumented in this encounter Care Teams Post Secondary Professional Relationship Specialty Start Date End Date Marita Wetzel DO [address] [place] [address] PCP - General Family Medicine 11/14/22 documented as of this encounter
--- OUTSIDE RECORDS SUMMARY | 2024-08-24 12:50 | XMS_ITS | Encounter Summary ---
Author Organization [facility] [place], Address [address] [place] [address] Phone Care Team Providers Care Pole Framer Machine Name Role Phone Marita Wetzel DO Primary Care Provider Unava ilable Encounter Details Date Type Department Care Team (Late st Contact Info) Description 08/23/2024 Treatment [facility], [address] [place] [phone] Jeanne Bailey MD [facility] [address] [place] [address] End stage renal disease; Dependence on renal [...] Dialysis Note - Jeanne Bailey MD - 08/23/2024 12:00 AM EDT Patient: Alix Sharp : 1960 [facility]: [facility] Note Type: Dialysis Rounds-Comp Service Date: 08/23/2024 This patient was personally seen for a complete visit as part of routine monthly dialysis care for end stage renal disease. Attending Pet Handler: JEANNE BAILEY Dialysis Location: [facility] Schedule: Shift: 3 OVERVIEW COMMENTS: [...] Run even or positive. HOME MEDICATIONS Current [facility] Outpatient Medications amlodipine 10 mg tablet Take [...] capsule by mouth once a day. Current [facility] Allergies Allergen: codeine Reaction: Unknown Allergen: oxycodone Reaction: Unknown DIALYSIS PRESCRIPTION Treatment Data Treatment Date: 08/23/2024 started at: 11:02 AM Dialysate / Machine Temp (prescribed): 36.0*C Dialysate / Machine Temp (actual): 35.7*C BFR (prescribed): 350 BFR (average delivered): 350 DFR (prescribed): Manual 500 DFR (average delivered): 500 Prescribed Time: 03:15 Actual Time: 03:17 EDW (kg): 57.0 Dialyzer: 160NRe Optiflux Dialysate: 3.0 K, 2.50 Ca, 1.0 Mg, 100 Dextrose ([id number]) Sodium: 137 Bicarb: 35 Pre Dialysis Vitals Pre BP Sit: 153/71 Pre Wt (kg): 60.4 EDW Deviation (kg): 3.4 Temp: 96.4*F Post Dialysis Vitals Post BP Sit: 147/76 Post Wt (kg): 60.3 TREATMENT MEDICATIONS ORDERS Mircera 225 mcg IVP Every 2 weeks During Dialysis 07/14/2024 - 07/13/2025 BP AND FLUID ASSESSMENT Post BP Sit 147/76 - 08/23/2024 148/79 - 08/20/2024 143/75 - 08/18/2024 Post Wt (kg) 60.3 - 08/23/2024 58.7 - 08/20/2024 56.6 - 08/18/2024 EDW (kg) 57.0 - 08/23/2024 57.0 - 08/20/2024 57.0 - 08/18/2024 Deviation (kg) 3.3 - 08/23/2024 1.7 - 08/20/2024 -0.4 - 08/18/2024 ADEQUACY ASSESSMENT spKt/V (Daugirdas II) 1.51 (07/30/24) 1.46 (07/09/24) 1.50 (06/18/24) eKdrt/V 1.27 (07/30/24) 1.24 (07/09/24) 1.12 (05/10/24) % Urea Reduction 72 (07/30/24) 70 (07/09/24) 70 (06/18/24) BUN 36 (07/30/24) 30 (07/09/24) 44 (06/18/24) BUN Post Dialysis 10 (07/30/24) 9 (07/09/24) 13 (06/18/24) Creatinine 3.37 (08/04/24) 3.05 (07/07/24) 3.39 (06/18/24) Bicarbonate (CO2) 22 (08/04/24) 21 (07/07/24) 23 (06/18/24) Sodium 136 (08/04/24) 137 (07/07/24) 137 (06/18/24) Missed Treatments 1 - Last 30 days 1 - Last 60 days Most recently missed on 07/28/2024 ACCESS ASSESSMENT AVGraft Synthetic - Standard (PTFE) Left Upper Arm Active (In Use) - 04/23/2024 Placed - 01/22/2024 Access Flow 1013 (08/23/24) 1069 (08/20/24) 1264 (07/26/24) ANEMIA ASSESSMENT Hemoglobin 7.7 (08/18/24) 7.6 (08/11/24) 7.1 (08/04/24) Iron Saturation (TSat) 20 (08/04/24) 46 (07/07/24) 53 (06/18/24) Ferritin 1,445 (08/04/24) 1,427 (07/07/24) 1,648 (06/18/24) Iron 35 (08/04/24) 83 (07/07/24) 99 (06/18/24) TIBC 179 (08/04/24) 182 (07/07/24) 188 (06/18/24) Reticulocyte Hemoglobin 34.6 (07/07/24) 26.0 (04/23/24) MCV 100 (07/07/24) 94 (04/23/24) 94 (04/20/24) Platelets 193 (04/20/24) 266 (02/10/24) 365 (02/03/24) BMM ASSESSMENT Calcium 9.0 08/04/24 8.8 07/07/24 8.5 06/18/24 Corrected Calcium 9.6 08/04/24 9.6 07/07/24 9.4 06/18/24 Phosphorus 2.3 08/04/24 2.5 07/07/24 3.2 06/18/24 Calcium Phosphorus Product 21 08/04/24 22 07/07/24 27 06/18/24 PTH 70 08/04/24 221 07/07/24 145 06/18/24 Vitamin D, 25-OH, Total 48.2 04/23/24 19.2 10/06/23 Magnesium 1.6 08/04/24 1.7 07/07/24 1.9 06/18/24 Alkaline Phosphatase 105 07/07/24 54 04/23/24 Aluminum 31 04/30/24 97 04/23/24 NUTRITION ASSESSMENT Albumin 3.3 08/04/24 3.0 07/07/24 2.9 06/18/24 Potassium 3.6 08/16/24 4.0 08/11/24 3.5 08/06/24 eNPCR 0.67 07/30/24 0.59 07/09/24 0.67 05/10/24 Hemoglobin A1C 5.7 07/07/24 5.8 04/23/24 6.1 04/20/24 ADDITIONAL LABS INR 1.0 (10/06/23) WBC 3.84 (07/07/24) 9.46 (04/23/24) 11.3 (04/20/24) Cholesterol 115 (10/06/23) HDL 31 (10/06/23) LDL Calculated 57 (10/06/23) Triglycerides 157 (10/06/23) Hepatitis B Surface Ab 632 (04/23/24) 1,682.0 (04/20/24) 1,959.0 (02/10/24) COMMENTS: 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 ADDITIONAL COMMENT COMMENTS: 08/23/24 Patient is stable. Medications reviewed Physical Exam Vital signs: reviewed [...] reviewed. Dietary adjustments made in conjunction with microbiology laboratory manager. 7.Transplant: Not a candidate. 07/21/24 Patient is stable Medications reviewed Physical [...] reviewed. Dietary adjustments made in conjunction with microbiology laboratory manager. 7.Transplant: not a candidate. 06/21/24 Patient is stable, recently cd from [facility] after episode of pneumonia Medications reviewed [...] reviewed. Dietary adjustments made in conjunction with microbiology laboratory manager. Transplant: Not a candidate. 05/24/24 Patient is [...] reviewed. Dietary adjustments made in conjunction with microbiology laboratory manager. 7.Transplant: Not a candidate. decreasing tacrolimus doing [...] reviewed. Dietary adjustments made in conjunction with microbiology laboratory manager. Transplant: The patient will be re-evaluated for a kidney transplant. Signed by: JEANNE BAILEY MD on 08/23/2024 at 07:36:12 PM Transcribed by: JEANNE BAILEY MD on 08/23/2024 at 07:36:12 PM documented in this encounter Plan of Treatment Upcoming Encounters Date Type Department Care Team (Late st Contact Info) Description 09/16/2024 10:00 AM EDT Clinical Support [facility] [place] Vascular Access Center [address] [place] [address] [place] [address] 11/03/2024 12:30 PM EDT Scheduled Only [facility] - Vascular Access Center [address] [place] [address] [place] [address] documented as of this encounter Visit Diagnoses Diagnosis End stage renal disease Dependence on renal dialysis documented in this encounter Care Teams Pole Framer Machine Relationship Specialty Start Date End Date Marita Wetzel DO [address] [place] [address] PCP - General Family Medicine 11/14/22 documented as of this encounter
--- OUTSIDE RECORDS SUMMARY | 2024-08-24 12:50 | XMS_ITS | Encounter Summary ---
Author Organization [facility], Address [place] [facility] [address] Phone Care Team Providers Care Traffic Circuit Engineer Name Role Phone Marita Wetzel DO Primary Care Provider Unava ilable Reason for Visit * Reason Comments Med Refill Encounter Details Date Type Department Care Team (Late Contact Info) Description 06/18/2024 Refill [facility] [address] [place] [address] Srinivas Agrawal MD [address] [facility] [place] [phone] Social History Tobacco Use Types Packs/Day Years [...] Services Of [facility] Center [address] [place] [phone] 11/03/2024 12:30 PM EDT Scheduled Only [facility] [address] [place] [phone] documented as of this encounter Procedures Procedure Name Priority Date/Time Associated Diagnosis Comments HD KINETICS Routine 06/18/2024 POST CHEMISTRY Routine 06/18/2024 IMMUNO CHEMISTRY Routine 06/18/2024 HEMATOLOGY Routine 06/18/2024 CHEMISTRY Routine 06/18/2024 CHEMISTRY Routine 06/18/2024 [facility] RESULTS Routine 06/18/2024 documented in this encounter Results * [facility] Results (06/18/2024) Pathologist [facility] eKt/V ([place]) 1.28 Knowledge Center WSTDKT/V 0.8 Knowledge Center spKt/V (Daugirdas II) 1.50 Knowledge Center 06/18/2024 06/18/2024 [facility] Ordering Provider LAB BLOOD ORDERABLES Final Result [facility] Contact Performing lab Unknown, [place] * HD KINETICS (06/18/2024) Pathologist [facility] % Urea Reduction 70 65 - 80 % [facility] 06/18/2024 06/22/2024 9:5 5 AM EST Narrative Resulting Agency Comment Specimen source: Plasma Srinivas Agrawal MD LAB BLOOD ORDERABLES Final Result [facility] See order comments or contact performing lab Unknown, [place] * POST CHEMISTRY (06/18/2024) Pathologist [facility] BUN Post Dialysis 13 6 - 19 mg/dL [facility] 06/18/2024 06/22/2024 9:5 5 AM EST Narrative [facility] - 06/22/2024 Unless otherwise specified, test(s) performed at: [facility], [address] [place] [address] SCREED PERSON: Dwayne Fuentes M.D. For any questions, please call customer service at FREQUENCY:MONTHLY Resulting Agency Comment Specimen source: Plasma Srinivas Agrawal MD LAB BLOOD ORDERABLES Final Result Performing Organization Address City/[facility]/ZIP Co de Phone Number [facility] See order comments or contact performing lab Unknown, [place] * IMMUNO CHEMISTRY (06/18/2024) Pathologist [facility] Hep B Surface Ag Negative Negative [facility] 06/18/2024 06/19/2024 11: 21 AM EST Narrative Resulting Agency Comment Specimen source: Serum Srinivas Agrawal MD LAB BLOOD ORDERABLES Final Result Performing Organization Address City/[facility]/ZIP Co de Phone Number [facility] See order comments or contact performing lab Unknown, [place] * (ABNORMAL) [facility] Chemistry (06/18/2024) Pathologist [facility] BUN 44(H) 6 - 19 mg/dL [facility] [...] 06/19/2024 Unless otherwise specified, test(s) performed at: [facility], [address] [place], [place] [id number] SCREED PERSON: Dwayne Fuentes M.D. For any questions, please call customer service at FREQUENCY:MONTHLY Resulting Agency Comment Specimen source: Serum Srinivas Agrawal MD LAB BLOOD ORDERABLES Edite d Result - Final Performing Organization Address [facility] Co de Phone Number [facility] See order comments or contact performing lab Unknown, [place] * (ABNORMAL) HEMATOLOGY (06/18/2024) Hemoglobin 7.9(L) 12.0 - 16.0 g/dL [facility] Hemoglobin x 3 23.7(L) 36.0 - 48.0 % [facility] 06/18/2024 06/19/2024 12: 24 PM EST Narrative [facility] - 06/19/2024 Unless otherwise specified, test(s) performed at: [facility], [address] [place] [address] SCREED PERSON: Dwayne Fuentes M.D. For any questions, please call customer service at FREQUENCY:MONTHLY Resulting Agency Comment Specimen source: Blood Srinivas Agrawal MD LAB BLOOD ORDERABLES Final Result Performing Organization Address City/[facility]/ZIP Co de Phone Number [facility] See order comments or contact performing lab Unknown, [place] * (ABNORMAL) [facility] Chemistry (06/18/2024) PTH 145(H) 16 - 80 pg/mL [facility] 06/18/2024 06/19/2024 11: 40 AM EST Narrative SANTY - 06/19/2024 Unless otherwise specified, test(s) performed at: [facility], [address] [place] [address] SCREED PERSON: Dwayne Fuentes M.D. For any questions, please call customer service at FREQUENCY:MONTHLY Resulting Agency Comment Specimen source: Plasma us Srinivas Agrawal MD LAB BLOOD ORDERABLES Final Result [facility] See order comments or contact performing lab Unknown, [place] documented in this encounter Visit Diagnoses Not on filedocumented in this encounter Care Teams Traffic Circuit Engineer Relationship Specialty Start Date End Date Marita Wetzel DO [address] [place] [address] PCP - General Family Medicine 11/14/22 documented as of this encounter
--- OUTSIDE RECORDS SUMMARY | 2024-08-24 12:50 | XMS_ITS | Encounter Summary ---
Author Organization [facility], Address [address] [place] [address] Phone Care Team Providers Care Community Support Worker Name Role Phone Marita Wetzel DO Primary Care Provider Unava ilable Encounter Details Date Type Department Care Team (Late st Contact Info) Description 08/19/2024 11:00 AM EDT Office Visit [facility], - Vascular Access Center [address] [place] [address] Jerod Carrillo DO [address] [place] [phone] End stage renal disease (HCC) (Primary Dx) Social History Tobacco Use Types Packs/Day Years [...] on file documented as of this encounter Progress Notes * Jerod Carrillo DO - 08/19/2024 11:00 AM EDT Images from the original note were not included. Hemodialysis Access Note Date: 08/19/24 Access: left arm graft being used for dialysis. Patient reports: no complaints There were no vitals filed for this visit. Physical Exam: Extremity: left arm Access: thrill present Incision: intact Distal extremity: normal, pink, warm, sensation intact, and full range of motion Distal pulse: radial not palpable Duplex ultrasound performed - see separate images. 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 Assessment: Functional access Plan: Continue using access. Notes: return as needed documented in this encounter Plan of Treatment Upcoming Encounters Date Type Department Care Team (Late st Contact Info) Description 09/16/2024 10:00 AM EDT Clinical Support [facility] Vascular Access Center [address] [place] [address] 11/03/2024 12:30 PM EDT Scheduled Only [facility] [address] [place] [address] documented as of this encounter Visit Diagnoses Diagnosis End stage renal disease (HCC)- Primary End stage renal disease documented in this encounter Care Teams Community Support Worker Relationship Specialty Start Date End Date Marita Wetzel DO [address] [place] [address] PCP - General Family Medicine 11/14/22 documented as of this encounter
== END 2024-08-24 11:03 | disposition home or self-care (01) ==
LOC: HO.XRAY 11:02
PROVIDERS: PCP Family Medicine; Visit Provider Internal Medicine
DX: A43.9 Nocardiosis, unspecified (principal)
CPT/HCPCS: 71046

== ENCOUNTER → 2024-08-24 11:39 | Outpatient (BNV) | payer MEDICARE, OTHER, SELFPAY | PROVIDERS: PCP Family Medicine; Visit Provider Radiology Diagnostic Radiology | DX: A43.0 Pulmonary nocardiosis (principal) | CPT/HCPCS: 71046 ==

== ENCOUNTER 2024-08-31 13:32 | Outpatient (AMB) | payer MEDICARE, OTHER, SELFPAY ==
[2024-08-31 13:33] VITALS: BP 140/60; PULSE 65; O2SAT 100; BMI 20.8
--- NOTE | 2024-08-31 13:33 | A.OFFVIS_ITS ---
Vital Signs 08/31/24 13:33 Height 5 ft 6 in Weight 128 lb 15.527 oz BMI 20.8 BP 140/60 H Blood Pressure Location Rt brachial Position Sitting Pulse 65 Pulse Source Pulse Oximeter Pulse Oximetry (%) 100 Oxygen Delivery Method Room Air Intake Visit Reasons: Pleural effusion/Pneumonia Film Projector Operator Required: No Accompanied by: Self / Same As Patient Allergies codeine [CODEINE] Allergy (Intermediate, Verified 08/31/24 13:38) Hives and pruritus oxycodone [OXYCODONE] Allergy (Intermediate, Verified 08/31/24 13:38) HIVES HPI Comments Details: 63-year-old lady, nonsmoker, with underlying end-stage renal disease status post DDKT complicated by chronic rejection, now with CKD 4, diastolic heart failure, diabetes mellitus, CAD hospitalized on 04/07/2024 with progressive dyspnea of approximately 2 week duration. On initial evaluation patient not to have right- sided loculated pleural effusions and consolidative process in the right lower lobe. She had right-sided chest tube placed in with drainage of approximately 13 cc so far. Pleural studies are pending. Patient does report improved dyspnea after placement of chest tube. 08/31/2024 the patient is here for a pulmonary hospital follow-up visit. 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 She has been following closely with Infectious Disease. Has had multiple chest x-rays post hospitalization. Seems like there is some interval improvement but still abnormal specially with airspace disease in the right hemithorax. Will going to go ahead and request for a CT scan of the chest. Overall the blood work is reassuring. Her IgG levels are normal. She does have slight IgM deficiency that may predispose her to immunocompromised and conditions and opportunistic infections. She will continue to take the antimicrobial therapies as per Infectious Disease. 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 Mother CHF (congestive heart failure) Social History Household Members: Spouse Housing: House Do you presently have visiting nurse or other home services: Yes Alcohol intake: never Comment: patient is bedbound at this time Patient Tobacco Use Status: Never used Tobacco Advance Directives Date on File: 04/07/24 service: Yes Review of Systems Const Denies chills, Denies daytime sleepiness, Denies fatigue, Denies fever(s), Denies poor appetite, Denies snoring, Denies stops breathing during sleep, Denies weakness, Denies weight gain and Denies weight loss Eyes Denies loss of vision ENT Denies dizziness and Denies hearing loss Card Denies chest pain, Denies irregular heart rhythm, Denies claudication, Denies leg edema, Denies lightheadedness, Denies palpitations, Reports dyspnea on exertion and Denies orthopnea Resp Reports cough, Denies excessive phlegm production, Reports dyspnea on exertion, Denies snoring and Denies wheezing GI Denies abdominal pain, Denies hematochezia, Denies change in bowel habits, Denies nausea and Denies vomiting Denies urinary frequency and Denies dysuria Musc Reports abnormal gait, Denies arthralgias, Denies muscle weakness, Denies numbness and Denies other Skin/Breast Denies nail changes and Denies rash Neuro Denies Abnormal speech present, Reports abnormal gait, Denies dizziness, Denies loss of vision, Denies memory loss, Denies numbness and Denies weakness Psych Denies depression and Denies memory loss Endo Denies fatigue and Denies palpitations Julian/Lymph Denies easy bruising Aller/Immun Denies wheezing Physical Exam Vital Signs: Last Vital Signs Pulse 65 08/31/24 13:33 BP 140/60 H 08/31/24 13:33 Pulse Ox 100 08/31/24 13:33 Oxygen Delivery Method Room Air 08/31/24 13:33 BMI result Body Mass Index 20.8 Last Vital Signs Temp 98.4 F 06/03/24 08:00 Pulse 62 06/03/24 08:00 Resp 18 06/03/24 08:00 BP 153/58 H 06/03/24 08:00 Pulse Ox 94 06/03/24 08:00 O2 Del Method Room Air 06/03/24 08:00 BMI result Body Mass Index 17.5 Const General: no acute distress Orientation/consciousness: patient oriented x3 Eyes EOM: EOMs intact bilaterally Neck Neck: Yes supple Resp Auscultation: diminished lung sounds Cardio Rate: regular rate GI Palpation (GI): Soft to palpation Neuro General: patient oriented x3 Speech: No Abnormal speech present Assessment & Plan Assessment & Plan (1) Lung mass: Code(s): R91.8 - Other nonspecific abnormal finding of lung field Category: Medical (2) Disseminated nocardiosis: Comment: Doing well Code(s): A43.9 - Nocardiosis, unspecified Category: Medical (3) Pneumonia: Code(s): J18.9 - Pneumonia, unspecified organism Category: Medical Qualifiers: Pneumonia type: due to unspecified organism Laterality: bilateral Lung location: unspecified part of lung Qualified Code(s): J18.9 - Pneumonia, unspecified organism (4) Pleural effusion, right: Code(s): J90 - Pleural effusion, not elsewhere classified Category: Medical Plan continue antimicrobial therapy as per ID CT chest F/U 2-3 months Orders: Orders CT chest wo IV con Today R91.8 - Other nonspecific abnormal finding of lung field Coding Level of Care Code Est Pt Level 4 (23336) Diagnoses Lung mass R91.8 Disseminated nocardiosis A43.9 Pneumonia of both lungs due to infectious organism, unspecified part of lung J18.9 Pneumonia type: due to unspecified organism Laterality: bilateral Lung location: unspecified part of lung Pleural effusion, right J90 Time Spent (min) 20
--- OUTSIDE RECORDS SUMMARY | 2024-08-31 14:36 | XMS_ITS | Encounter Summary ---
Author Organization [facility] Address [address] [place] [address] Phone Care Team Providers Care Pillowcase Cleaner Name Role Phone Marita Wetzel DO Primary Care Provider Unava ilable Encounter Details Date Type Department Care Team (Late st Contact Info) Description 04/18/2023 Documentation Only [facility] [address] [place] [phone] Jerod Adames DO [address] [place] [address] [place] [phone] Social History Tobacco Use Types Packs/Day Years [...] Support [facility] Vascular Access Center [address] [place] [phone] 11/03/2024 12:30 PM EDT Scheduled Only [facility] Access [place] [address] [place] [phone] documented as of this encounter Visit Diagnoses Not on filedocumented in this encounter Care Teams Pillowcase Cleaner Relationship Specialty Start Date End Date Marita Wetzel DO [address] [place] [address] PCP - General Family Medicine 11/14/22 documented as of this encounter
--- OUTSIDE RECORDS SUMMARY | 2024-08-31 14:36 | XMS_ITS ---
Author Organization [facility] Address [address] [place] [address] Care Team Providers Care Account Executive Name Role Phone Miryam Tyson Unavailable [phone] Encounters Encounter Location Date Provider Diagnosis [facility] [address] [place] [address] 07/02/2024 Miryam Tyson Plan Of Treatment No Information Progress Notes * Farhan BEARDaDOB:1960 (64 yo F)Acc No.[id number]:07/02/2024 Progress Notes Patient:?Alix BEARD Provider:?Miryam Tyson DPM :1960???Age:64 Y???Sex:Female D ate:07/02/2024 Address:[address] [place], [place] [id number] Subjective: * Chief Complaints: * ??? * Medical History:? Objective: * Vitals:? Assessment: Plan: * Treatment: * Images: * The named appointment provid er may or may not be the originator of this progress note, and it is not deemed complete until electronically signed by the appointment provider. Sign off status: Pending * Provider:?Miryam Tyson DPM Date:? Generated for Michael santos/Chloe/Oraliaitting on:?08/31/2024 02:36 PM EDT
--- OUTSIDE RECORDS SUMMARY | 2024-08-31 14:36 | XMS_ITS ---
Author Organization [facility] Address [address] [place] [address] Care Team Providers Care Aircraft Accessories Mechanic Name Role Phone Miryam Tyson Unavailable [phone] REASON FOR VISIT MAT REPAIRER Encounters Encounter Location Date Provider Diagnosis [facility] [address] [place] [address] 04/22/2024 Miryam Tyson Plan Of Treatment No Information Progress Notes * Chris BEARDB:1960 (63 yo F)Acc No.[id number]:04/22/2024 Patient:?Alix BEARD :1960???Age:63 Y???Sex:Female Address:[address] [place] [address], [phone] * true * Date:? Generated for Michael santos/Chloe/eTransmitting on:?08/31/2024 02:36 PM EDT
--- OUTSIDE RECORDS SUMMARY | 2024-08-31 14:36 | XMS_ITS | Encounter Summary ---
Author Organization [facility], [place] [address] [place] [address] Phone Care Team Providers Care Hospital Tray Service Worker Name Role Phone Marita Wetzel DO Primary Care Provider Unava ilable Encounter Details Date Type Department Care Team (Late st Contact Info) Description 08/30/2024 Orders Only [facility] [address] [place] [phone] Srinivas Agrawal MD [address] [place] [address] [place] [phone] Social History Tobacco Use Types Packs/Day Years [...] [facility] Vascular Access Center [address] [place] [address] [place] [phone] 11/03/2024 12:30 PM EDT Scheduled Only [facility] Vascular Access [address] [place] [address] documented as of this encounter Procedures Procedure Name Priority Date/Time Associated Diagnosis Comments CHEMISTRY Routine 08/30/2024 documented in this encounter Results * weendy Chemistry (08/30/2024) Potassium 4.5 3.5 - 5.1 mEq/L [facility] 08/30/2024 08/31/2024 10: 10 AM EDT Narrative [facility] - 08/31/2024 Unless otherwise specified, test(s) performed at: [facility], [address] [place] [id number] DIRECTOR SANITATION BUREAU: Dwayne Fuentes M.D. For any questions, please call customer service at FREQUENCY:OTHER Resulting Agency Comment Specimen source: Serum us Srinivas Agrawal MD LAB BLOOD ORDERABLES Final Result [facility] See order comments or contact performing lab Unknown, [place] documented in this encounter Visit Diagnoses Not on filedocumented in this encounter Care Teams Hospital Tray Service Worker Relationship Specialty Start Date End Date Marita Wetzel DO [address] [place] [address] PCP - General Family Medicine 11/14/22 documented as of this encounter
--- OUTSIDE RECORDS SUMMARY | 2024-08-31 14:36 | XMS_ITS | Encounter Summary ---
Author Organization [facility], Address [address] [place] [address] Phone Care Team Providers Care Brain Surgeon Name Role Phone Marita Wetzel DO Primary Care Provider Unava ilable Encounter Details Date Type Department Care Team (Late st Contact Info) Description 08/30/2024 Treatment [facility], [address] [place] [address] Jeanne Bailey MD [address] [place] [address] [place] [phone] End stage renal disease; Dependence on renal [...] Dialysis Note - Jeanne Bailey MD - 08/30/2024 12:00 AM EDT BASIC NOTE Patient: Alix Sharp : 1960 [facility] Note Author: JEANNE BAILEY MD Service Date: 08/30/2024 This patient was personally seen for a basic visit as part of routine monthly dialysis care for end stage renal disease. Attending Cold Roll Inspector: JEANNE BAILEY Dialysis Location: [facility] Schedule: Shift: 3 OVERVIEW Patient [...] Run even or positive. HOME MEDICATIONS Current [facility] Outpatient Medications carvedilol 25 mg tablet Take 1 tablet by mouth twice a day. Humalog KwikPen Insulin 100 unit/mL insulin pen Inject subcutaneously three times a day. [before meal SS: less than 60 call physician, 150 - 200 give 2 units, 201-250 4units, 251-300 6units, 301 - 350 8units 351 - 400 10units, greater than 400 go to ER (Diagnosis code E11.22)] hydromorphone 4 mg tablet Take 1 tablet by mouth every four hours as needed for pain. Nephro-Rhina 0.8 mg tablet Take 1 tablet by mouth once a day. pantoprazole 40 mg tablet,delayed release (DR/EC) Take 1 tablet by mouth once a day. sertraline 25 mg tablet Take 1 tablet by mouth once a day. sucralfate 1 gram tablet Take 1 tablet by mouth three times a day. [Take with meals] Current [facility] Allergies Allergen: codeine Reaction: Unknown Allergen: oxycodone Reaction: Unknown DIALYSIS PRESCRIPTION Treatment Data Treatment Date: 08/30/2024 started at: 11:08 AM Dialysate / Machine Temp (prescribed): 36.0*C Dialysate / Machine Temp (actual): 35.7*C BFR (prescribed): 350 BFR (average delivered): 370 DFR (prescribed): Manual 500 DFR (average delivered): 570 Prescribed Time: 03:15 Actual Time: 03:20 EDW (kg): 60.3 Dialyzer: 160NRe Optiflux Dialysate: 2.0 K, 2.50 Ca, 1.0 Mg, 100 Dextrose (CS3118) Sodium: 137 Bicarb: 35 Pre Dialysis Vitals Pre BP Sit: 160/74 Pre Wt (kg): 60.4 EDW Deviation (kg): 0.1 Temp: 97.2*F Post Dialysis Vitals Post BP Sit: 168/90 Post Wt (kg): 59.4 TREATMENT MEDICATIONS ORDERS Mircera 225 mcg IVP Every 2 weeks During Dialysis 07/14/2024 - 07/13/2025 BP AND FLUID ASSESSMENT Post BP Sit 168/90 - 08/30/2024 144/119 - 08/27/2024 168/74 - 08/25/2024 Post Wt (kg) 59.4 - 08/30/2024 58.9 - 08/27/2024 59.1 - 08/25/2024 EDW (kg) 60.3 - 08/30/2024 60.3 - 08/27/2024 60.3 - 08/25/2024 Deviation (kg) -0.9 - 08/30/2024 -1.4 - 08/27/2024 -1.2 - 08/25/2024 ADEQUACY ASSESSMENT spKt/V (Daugirdas II) 1.40 (08/25/24) 1.51 (07/30/24) 1.46 (07/09/24) eKdrt/V 1.18 (08/25/24) 1.27 (07/30/24) 1.24 (07/09/24) % Urea Reduction 70 (08/25/24) 72 (07/30/24) 70 (07/09/24) BUN 46 (08/25/24) 36 (07/30/24) 30 (07/09/24) BUN Post Dialysis 14 (08/25/24) 10 (07/30/24) 9 (07/09/24) Creatinine 3.37 (08/04/24) 3.05 (07/07/24) 3.39 (06/18/24) Bicarbonate (CO2) 22 (08/04/24) 21 (07/07/24) 23 (06/18/24) Sodium 136 (08/04/24) 137 (07/07/24) 137 (06/18/24) Missed Treatments 0 - Last 30 days 1 - Last 60 days Most recently missed on 07/28/2024 ACCESS ASSESSMENT AVGraft Synthetic - Standard (PTFE) Left Upper Arm Active (In Use) - 04/23/2024 Placed - 01/22/2024 Access Flow 1013 (08/23/24) 1069 (08/20/24) 1264 (07/26/24) ANEMIA ASSESSMENT Hemoglobin 8.2 (08/25/24) 7.7 (08/18/24) 7.6 (08/11/24) Iron Saturation (TSat) 20 (08/04/24) 46 (07/07/24) [...] 3.3 08/04/24 3.0 07/07/24 2.9 06/18/24 Potassium 4.6 08/23/24 3.6 08/16/24 4.0 08/11/24 eNPCR 0.75 08/25/24 0.67 07/30/24 0.59 07/09/24 Hemoglobin A1C 5.7 07/07/24 5.8 04/23/24 6.1 [...] reviewed. Dietary adjustments made in conjunction with english teacher. 7.Transplant: Not a candidate. 07/21/24 Patient is [...] reviewed. Dietary adjustments made in conjunction with english teacher. 7.Transplant: not a candidate. 06/21/24 Patient is stable, recently cd from [facility] after episode of pneumonia Medications [...] reviewed. Dietary adjustments made in conjunction with english teacher. Transplant: Not a candidate. 05/24/24 Patient is [...] reviewed. Dietary adjustments made in conjunction with english teacher. 7.Transplant: Not a candidate. decreasing tacrolimus doing [...] reviewed. Dietary adjustments made in conjunction with english teacher. Transplant: The patient will be re-evaluated for a kidney transplant. Signed by: JEANNE BAILEY MD on 08/30/2024 at 09:01:38 PM Transcribed by: JEANNE BAILEY MD on 08/30/2024 at 09:01:38 PM documented in this encounter Plan of Treatment Upcoming Encounters Date Type Department Care Team (Late st Contact Info) Description 09/16/2024 10:00 AM EDT Clinical Support [facility] Vascular Access Center [address] [place] [address] 11/03/2024 12:30 PM EDT Scheduled Only [facility], - Vascular Access Center [address] [place] [address] documented as of this encounter Visit Diagnoses Diagnosis End stage renal disease Dependence on renal dialysis documented in this encounter Care Teams Brain Surgeon Relationship Specialty Start Date End Date Marita Wetzel DO [address] [place] [address] PCP - General Family Medicine 11/14/22 documented as of this encounter
--- OUTSIDE RECORDS SUMMARY | 2024-08-31 14:36 | XMS_ITS | Encounter Summary ---
Author Organization [facility] Address [address] [place] [address] Phone Care Team Providers Care Clamper Name Role Phone Marita Wetzel DO Primary Care Provider Unava ilable Encounter Details Date Type Department Care Team (Late st Contact Info) Description 05/20/2023 Documentation Only [facility] [address] [place] [phone] [place], [place], [place] [address] [place] [phone] Social History Tobacco Use Types Packs/Day Years [...] Support [facility] Vascular Access Center [address] [place] [phone] 11/03/2024 12:30 PM EDT Scheduled Only [facility] Vascular Access [place] [address] [place] [phone] documented as of this encounter Visit Diagnoses Not on filedocumented in this encounter Care Teams Clamper Relationship Specialty Start Date End Date Marita Wetzel DO [address] [place] [address] PCP - General Family Medicine 11/14/22 documented as of this encounter
--- OUTSIDE RECORDS SUMMARY | 2024-08-31 14:36 | XMS_ITS | Encounter Summary ---
Author Organization [facility] [place], Address [address] [facility] [place] [address] Phone Care Team Providers Care Java Front End Web Developer Name Role Phone Marita Wetzel DO Primary Care Provider Unava ilable Encounter Details Date Type Department Care Team (Late st Contact Info) Description 08/25/2024 Orders Only [facility] [place] [address] [place] [phone] Srinivas Agrawal MD [address] [place] [address] [place] [phone] Social History Tobacco Use Types Packs/Day Years [...] Support [facility] Vascular Access Center [address] [place] [address] [place] [phone] 11/03/2024 12:30 PM EDT Scheduled Only [facility] Vascular Access [address] [place] [address] documented as of this encounter Procedures Procedure Name Priority Date/Time Associated Diagnosis Comments HD KINETICS Routine 08/25/2024 POST CHEMISTRY Routine 08/25/2024 HEMATOLOGY Routine 08/25/2024 CHEMISTRY Routine 08/25/2024 Soci A[facility] LAB RESULTS Routine 08/25/2024 documented in this encounter Results * [facility] Results (08/25/2024) eNPCR 0.75 Knowledge Center spKt/V (Daugirdas II) 1.40 Knowledge Center eKt/V Gotch 1.18 Knowledg e Center eKdrt/V 1.18 Knowledge Center nPCR_HD 0.83 Knowledge Center PCR 43.29 [facility] spKt/V [facility] eKt/V ([place]) 1.19 Knowledge Center WSTDKT/V 2.3 Knowledge Center 08/25/2024 08/25/2024 [facility] Ordering Provider LAB BLOOD ORDERABLES Final Result Performing Organization Address City/[facility]/ZIP Co de Phone Number Knowledge Center Contact Performing lab Unknown, [place] * HD KINETICS (08/25/2024) Pathologist [facility] % Urea Reduction 70 65 - 80 % [facility] 08/25/2024 08/26/2024 10: 40 AM EDT Narrative Resulting Agency Comment Specimen source: Plasma Srinivas Agrawal MD LAB BLOOD ORDERABLES Final Result [facility] See order comments or contact performing lab Unknown, [place] * POST CHEMISTRY (08/25/2024) BUN Post Dialysis 14 6 - 19 mg/dL [facility] 08/25/2024 08/26/2024 10: 40 AM EDT Narrative [facility] - 08/27/2024 Unless otherwise specified, test(s) performed at: [facility], [address] [place] [address] CANAL SUPERINTENDENT: Dwayne Fuentes M.D. For any questions, please call customer service at FREQUENCY:OTHER Resulting Agency Comment Specimen source: Plasma Srinivas Agrawal MD LAB BLOOD ORDERABLES Final Result Performing Organization Address [facility] de Phone Number [facility] See order comments or contact performing lab Unknown, [place] * (ABNORMAL) [facility] Chemistry (08/25/2024) BUN 46(H) 6 - 19 mg/dL [facility] 08/25/2024 08/26/2024 2:4 2 PM EDT Narrative [facility] - 08/27/2024 Unless otherwise specified, test(s) performed at: [facility], [address] [place] [address] CANAL SUPERINTENDENT: Dwayne Fuentes M.D. For any questions, please call customer service at FREQUENCY:OTHER Resulting Agency Comment Specimen source: Serum Srinivas Agrawal MD LAB BLOOD ORDERABLES Final Result Performing Organization Address [facility] de Phone Number [facility] See order comments or contact performing lab Unknown, [place] * (ABNORMAL) HEMATOLOGY (08/25/2024) Hemoglobin 8.2(L) 12.0 - 16.0 g/dL [facility] Hemoglobin x 3 24.6(L) 36.0 - 48.0 % [facility] 08/25/2024 08/26/2024 10: 15 AM EDT Narrative [facility] - 08/26/2024 Unless otherwise specified, test(s) performed at: [facility], [address] [place] [address] CANAL SUPERINTENDENT: Dwayne Fuentes M.D. For any questions, please call customer service at FREQUENCY:OTHER Resulting Agency Comment Specimen source: Blood us Srinivas Agrawal MD LAB BLOOD ORDERABLES Final Result [facility] See order comments or contact performing lab Unknown, [place] documented in this encounter Visit Diagnoses Not on filedocumented in this encounter Care Teams Java Front End Web Developer Relationship Specialty Start Date End Date Marita Wetzel DO [address] [place] [address] PCP - General Family Medicine 11/14/22 documented as of this encounter
--- OUTSIDE RECORDS SUMMARY | 2024-08-31 14:37 | XMS_ITS | Encounter Summary ---
Author Organization [facility] Address [address] [place] [address] Phone Care Team Providers Care Sole Sewer Hand Name Role Phone Marita Wetzel DO Primary Care Provider Unava ilable Encounter Details Date Type Department Care Team (Late st Contact Info) Description 06/14/2022 Documentation Only [facility] [address] [place] [phone] Candace Adam PA Social History Tobacco Use [...] Support [facility] Vascular Access Center [address] [place] [address] 11/03/2024 12:30 PM EDT Scheduled Only [facility] Vascular Access [address] [place] [phone] documented as of this encounter Visit Diagnoses Not on filedocumented in this encounter Care Teams Sole Sewer Hand Relationship Specialty Start Date End Date Marita Wetzel DO [address] [place] [address] PCP - General Family Medicine 11/14/22 documented as of this encounter
--- OUTSIDE RECORDS SUMMARY | 2024-08-31 14:37 | XMS_ITS | Encounter Summary ---
Author Organization [facility] Address [address] [place] [address] Phone Care Team Providers Care Creative Services Designer Name Role Phone Marita Wetzel DO Primary Care Provider Unava ilable Encounter Details Date Type Department Care Team (Late st Contact Info) Description 12/06/2022 Documentation Only [facility] [address] [place] [phone] [place], [place] [address] [place] [phone] Social History Tobacco Use Types Packs/Day Years [...] [facility] Vascular Access Center [address] [place] [phone] 11/03/2024 12:30 PM EDT Scheduled Only [facility] Vascular Access Center [address] [place] [phone] documented as of this encounter Visit Diagnoses Not on filedocumented in this encounter Care Teams Creative Services Designer Relationship Specialty Start Date End Date Marita Wetzel DO [address] [place] [address] PCP - General Family Medicine 11/14/22 documented as of this encounter
--- OUTSIDE RECORDS SUMMARY | 2024-08-31 14:37 | XMS_ITS | Encounter Summary ---
Author Organization [facility] [place], Address [address] [place] [address] Phone Care Team Providers Care Licensed Midwife Name Role Phone Marita Wetzel DO Primary Care Provider Unava ilable Reason for Visit * Reason Comments Med Refill Encounter Details Date Type Department Care Team (Late Contact Info) Description 12/06/2020 Refill [facility] [address] [place] [phone] Bernardo Doty MD [address] [place] [phone] Social History Tobacco Use Types Packs/Day Years [...] Support [facility] Vascular Access Center [address] [place] [phone] 11/03/2024 12:30 PM EDT Scheduled Only [facility] Vascular Access Center [address] [place] [address] documented as of this encounter Visit Diagnoses Not on filedocumented in this encounter Care Teams Licensed Midwife Relationship Specialty Start Date End Date Marita Wetzel DO [address] [place] [address] PCP - General Family Medicine 11/14/22 documented as of this encounter
--- OUTSIDE RECORDS SUMMARY | 2024-08-31 14:37 | XMS_ITS | Encounter Summary ---
Author Organization [facility] Address [address] [place] [address] Care Team Providers Care Fusing Line Inspector Name Role Phone Marita Wetzel Primary Care Provider +1- [phone] Encounter Details Date Type Department Care Team (Late st Contact Info) Description 04/30/2024 Lab Requisition [facility] - Main Lab [address] [place] [phone] Marily Gordillo MD [address] [place] [address] Chronic embolism and thrombosis of [...] LAB CHEMISTRY METHOD 05/03/2024 10:39 AM EST [facility] Potassium 5.1 3.5 - 5.5 mmol/L LAB CHEMISTRY METHOD 05/03/2024 10:39 AM [facility] Chloride 99 96 - 110 mmol/L LAB CHEMISTRY METHOD 05/03/2024 10:39 AM [facility] CO2 28 21 - 32 mmol/L LAB CHEMISTRY METHOD 05/03/2024 10:39 AM [facility] Anion Gap 7 3 - 11 LAB CHEMISTRY METHOD 05/03/2024 10:39 AM [facility] Glucose 133(H) 70 - 100 mg/dL LAB CHEMISTRY METHOD 05/03/2024 10:39 AM [facility] BUN 40(H) 5 - 25 mg/dL LAB CHEMISTRY METHOD 05/03/2024 10:39 AM [facility] Creatinine 3.27(H) 0.50 - 1.10 mg/dL LAB CHEMISTRY METHOD 05/03/2024 10:39 AM [facility] eGFR 15(L) >=60 mL/min/1. 73m2 LAB CHEMISTRY METHOD 05/03/2024 10:39 AM [facility] Comment:Calculation based on the??Chronic Kidney Disease Epidemiology Collaboration (CKD-EPI) equation refit??without adjustment for race. BUN/Creatinine Ratio 12.2 LAB CHEMISTRY METHOD 05/03/2024 10:39 AM [facility] Albumin 2.1(L) 3.2 - 5.0 g/dL LAB CHEMISTRY METHOD 05/03/2024 10:39 AM [facility] Calcium 8.6 8.5 - 10.5 mg/dL LAB CHEMISTRY METHOD 05/03/2024 10:39 AM [facility] Phosphorus 1.8(L) 2.5 - 4.5 mg/dL LAB CHEMISTRY METHOD 05/03/2024 10:39 AM [facility] Blood Venous blood specimen / Unknown Venipuncture / Unknown 05/03/2024 6:09 AM EST 05/03/2024 9:28 AM EST us Marily Gordillo MD LAB BLOOD ORDERABLES Final Resul t ABHILASH BENTLEY [place] ([facility]) [facility] [address] [place] [address], * Tacrolimus level (05/03/2024 6:09 AM EST) [...] investigational or for research. Test performed at [facility], [address], [place], [place] [address] ? [phone] Ashtyn Leigh MD, PhD - Lighting Fixtures Decorator Blood Venous blood specimen / Unknown Venipuncture / Unknown 05/03/2024 6:09 AM EST 05/03/2024 9:28 AM EST us Marily Gordillo MD LAB BLOOD ORDERABLES Final Resul t [facility] [address] [place] [address] documented in this encounter Visit Diagnoses Diagnosis Chronic embolism and thrombosis of unspecified vein Acute kidney failure, unspecified (CMS/HCC V24) Acute kidney failure, unspecified documented in this encounter Care Teams Fusing Line Inspector Relationship Specialty Start Date End Date Marita Wetzel DO [address] [place] [address] PCP - General 01/09/23 documented as of this encounter
--- OUTSIDE RECORDS SUMMARY | 2024-08-31 14:37 | XMS_ITS | Encounter Summary ---
Author Organization [facility] Address [address] [place] [address] Care Team Providers Care Machine Ii Cutter Name Role Phone Marita Wetzel Primary Care Provider +1- [phone] Encounter Details Date Type Department Care Team (Late st Contact Info) Description 04/30/2024 Lab Requisition [facility] - Main Lab [address] [place] [phone] Marily Gordillo MD [address] [place] [phone] Anemia, unspecified; Chronic embolism and thrombosis of [...] LAB CHEMISTRY METHOD 05/03/2024 10:59 AM EST [facility] Blood Venous blood specimen / Unknown Venipuncture / Unknown 05/03/2024 6:09 AM EST 05/03/2024 9:29 AM EST Marily Gordillo MD LAB BLOOD ORDERABLES Final Resul t Performing Organization Address [facility]/ZIP Co de Phone Number [facility] [address] [place] [address], [place] [phone] * (ABNORMAL) Ferritin (05/03/2024 6:09 AM EST) Ferritin 2,737(H) 8 - 252 ng/mL LAB CHEMISTRY METHOD 05/03/2024 10:59 AM EST [facility] Blood Venous blood specimen / Unknown Venipuncture / Unknown 05/03/2024 6:09 AM EST 05/03/2024 9:29 AM EST us Marily Gordillo MD LAB BLOOD ORDERABLES Final Resul t Performing Organization Address City/[facility]/ZIP Co de Phone Number [facility] [address] [place] [address], [place] [phone] documented in this encounter Visit Diagnoses Diagnosis Anemia, unspecified Chronic embolism and thrombosis of unspecified vein Acute kidney failure, unspecified (CMS/HCC V24) Acute kidney failure, unspecified documented in this encounter Care Teams Machine Ii Cutter Relationship Specialty Start Date End Date Marita Wetzel DO [address] [place] [address] PCP - General 01/09/23 documented as of this encounter
--- OUTSIDE RECORDS SUMMARY | 2024-08-31 14:37 | XMS_ITS | Encounter Summary ---
Author Organization [employer] Address [address] [place] [address] [address] [place] [address] Care Team Providers Care Outsoles Channel Opener Name Role Phone Marita Wetzel DO Primary Care Provider +1- [phone] Carmen Becker PharmD Unavailable [phone] Encounter Details Date Type Department Care Team (Late st Contact Info) Description 12/11/2022 Orders Only [facility] [address] [place] [address] Heather Nesbitt RN [address] [place] [address] Social History Tobacco Use Types Packs/Day Years [...] documented as of this encounter Care Teams Outsoles Channel Opener Relationship Specialty Start Date End Date Marita Wetzel DO [address] [place] [address] PCP - General Family Medicine 04/21/18 Carmen Becker PharmD [address] [place] [address] Pharmacist Internal Medicine 07/21/23 01/21/24 [facility] 05/22/24 documented as of this encounter
--- OUTSIDE RECORDS SUMMARY | 2024-08-31 14:37 | XMS_ITS | Encounter Summary ---
Author Organization [facility] Address [address] [place] [address] Care Team Providers Care Integration Analyst Name Role Phone Marita Wetzel Primary Care Provider +1- [phone] Encounter Details Date Type Department Care Team (Late st Contact Info) Description 05/07/2024 Lab Requisition [facility] - Main Lab [address] [place] [phone] Marily Gordillo MD [address] [place] [address] Chronic embolism and thrombosis of [...] LAB CHEMISTRY METHOD 05/10/2024 11:45 AM EST [facility] Potassium 3.8 3.5 - [...] BLOOD ORDERABLES Final Resul t ABHILASH BENTLEY [place] ([facility]) [facility] [address] [place] [address], * Tacrolimus level (05/10/2024 5:50 AM EST) [...] investigational or for research. Test performed at [facility], [address], [place], [place] ??[address] ? [phone] Ashtyn Leigh MD, PhD - Wood Shingle Roofer Blood Venous blood specimen / Unknown Venipuncture / Unknown 05/10/2024 5:50 AM EST 05/10/2024 9:58 AM EST us Marily Gordillo MD LAB BLOOD ORDERABLES Final Resul t [facility] [address] [place] [address] documented in this encounter Visit Diagnoses Diagnosis Chronic embolism and thrombosis of unspecified vein Acute kidney failure, unspecified (CMS/HCC V24) Acute kidney failure, unspecified documented in this encounter Care Teams Integration Analyst Relationship Specialty Start Date End Date Marita Wetzel DO [address] [place] [address] PCP - General 01/09/23 documented as of this encounter
--- OUTSIDE RECORDS SUMMARY | 2024-08-31 14:37 | XMS_ITS | Encounter Summary ---
Author Organization [facility] Of [facility] Address [address] [place] [address] Phone Care Team Providers Care Real Estate Underwriter Name Role Phone Marita Wetzel DO Primary Care Provider Unava ilable Encounter Details Date Type Department Care Team (Late st Contact Info) Description 07/04/2023 Documentation Only [facility] Of [address] [place] [phone] Pauline Aguayo [address] [place] [phone] Social History Tobacco Use Types Packs/Day Years [...] Support [facility] Of [facility] Access Center [address] [place] [phone] 11/03/2024 12:30 PM EDT Scheduled Only [facility] Of [facility] [address] [place] [address] documented as of this encounter Visit Diagnoses Not on filedocumented in this encounter Care Teams Real Estate Underwriter Relationship Specialty Start Date End Date Marita Wetzel DO [address] [place] [address] PCP - General Family Medicine 11/14/22 documented as of this encounter
--- OUTSIDE RECORDS SUMMARY | 2024-08-31 14:37 | XMS_ITS | Encounter Summary ---
Author Organization [facility] Of [facility] Address [address] [place] [address] Phone Care Team Providers Care Corporate Physical Security Supervisor Name Role Phone Marita Wetzel DO Primary Care Provider Unava ilable Encounter Details Date Type Department Care Team (Late st Contact Info) Description 08/27/2023 Documentation Only [facility] Of [address] [place] [phone] Hend[place], [place], [place] [address] [place] [phone] Social History Tobacco Use Types Packs/Day Years [...] Support [facility] Of [facility] Access Center [address] [phone] 11/03/2024 12:30 PM EDT Scheduled Only [facility] Of [facility] Vascular Access [place] [address] [place] [phone] documented as of this encounter Visit Diagnoses Not on filedocumented in this encounter Care Teams Corporate Physical Security Supervisor Relationship Specialty Start Date End Date Marita Wetzel DO [address] [place] [address] PCP - General Family Medicine 11/14/22 documented as of this encounter
--- OUTSIDE RECORDS SUMMARY | 2024-08-31 14:37 | XMS_ITS | Clinical Summary ---
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 81477 mL 12 02/10/20 Active predniSONE 5 MG [...] Encounters Date Type Department Care Team Description 08/30/2024 Orders Only [facility] [address] [place] [phone] Srinivas Agrawal MD 08/30/2024 Treatment [facility], [address] [place] [phone] Bernardo Doty MD End stage renal disease; Dependence on renal dialysis 08/25/2024 Orders Only [facility] [address] [address] Srinivas Agrawal MD 08/23/2024 Orders Only [facility] Of [address] [address] Srinivas Agrawal MD 08/23/2024 Treatment [facility] Of [address] [address] Bernardo Doty MD End stage renal disease; Dependence on renal dialysis 08/19/2024 11:30 AM EDT Clinical Support [facility] Of [facility] V[facility] Access Center [address] [place] [address] [place] [address] Db Neumann MD End stage renal disease (HCC) (Primary Dx); History of renal transplant; Encounter for adjustment and management of vascular catheters 08/19/2024 11:00 AM EDT Office Visit [facility] [address] [place] [address] [place] [address] Jerod Carrillo DO End stage renal disease (HCC) (Primary Dx) 08/18/2024 Orders Only [facility] Of [address] [address] Srinivas Agrawal MD 08/17/2024 Telephone [facility] [address] [place] [address] [place] [address] Stephany Stevens 08/16/2024 Orders Only [facility] [address] [address] Srinivas Agrawal MD 08/11/2024 Telephone [facility] [address] [place] [address] [place] [address] Hazel Zepeda to schedue port flush 08/06/2024 Orders Only [facility] Of [address] [address] Srinivas Agrawal MD 08/04/2024 Orders Only [facility] Of [address] [address] Srinivas Agrawal MD 08/04/2024 Treatment [facility] [place], [address] [place] [phone] Bernardo Doty MD End stage renal disease; Dependence on renal dialysis 08/04/2024 Documentation Only [facility] [place], - Vascular Access Center [address] [place] [address] Curtis Jolynn 08/02/2024 Treatment [facility] [place], [address] [place] [address] Bernardo Doty MD End stage renal disease; Dependence on renal dialysis 07/30/2024 Orders Only [facility] [address] [address] Srinivas Agrawal MD 07/28/2024 Telephone [facility] [place], [facility] Vascular Access Center [address] [place] [phone] Hazel Zepeda Attempted to schedule port flush 07/26/2024 Treatment [facility] [place], [address] [place] [address] Bernardo Doty MD End stage renal disease; Dependence on renal dialysis 07/21/2024 Orders Only [facility] [address] [address] Srinivas Agrawal MD 07/21/2024 Treatment [facility] [place], [address] [place] [address] Bernardo Doty MD End stage renal disease; Dependence on renal dialysis 07/19/2024 Orders Only [facility] [address] [address] Srinivas Agrawal MD 07/14/2024 Orders Only [facility] [address] [address] Srinivas Agrawal MD 07/12/2024 Orders Only [facility] [address] [address] Srinivas Agrawal MD 07/09/2024 Orders Only [facility] [address] [address] Srinivas Agrawal MD 07/07/2024 Orders Only [facility] [address] [address] Srinivas Agrawal MD 07/05/2024 Orders Only [facility] [address] [address] Srinivas Agrawal MD 07/05/2024 Treatment [facility] [place], [address] [place] [address] Bernardo Doty MD End stage renal disease; Dependence on renal dialysis 06/30/2024 Refill [facility] [address] [address] Srinivas Agrawal MD 06/28/2024 Treatment [facility] [place], [address] [place] [address] Bernardo Doty MD End stage renal disease; Dependence on renal dialysis 06/25/2024 Telephone [facility] [place] - [facility] Center [address] [place] [address] Hazel Zepeda VNA RN returned call 06/25/2024 Telephone [facility] Of [facility] - Vascular Access Center [address] [place] [place] [address] Hazel Zepeda Abx via port 06/23/2024 Treatment [facility] [place], [address] [place] [address] Bernardo Doty MD End stage renal disease; Dependence on renal dialysis 06/23/2024 Orders Only [facility] [place] [address] [place] [address] Srinivas Agrawal MD 06/21/2024 Treatment [facility] [place], [address] [place] [address] Bernardo Doty MD End stage renal disease; Dependence on renal dialysis 06/18/2024 Refill [facility] [place] [address] [place] [phone] Srinivas Agrawal MD 06/10/2024 Telephone [facility] [address] [place] [phone] Hazel Zepeda port flush- pt at [facility] from Last 3 Months Immunizations Immunization Administration [...] Support [facility] [address] [place] [address] [place] [address] 11/03/2024 12:30 PM EDT Scheduled Only [facility] [address] [place] [address] [place] [address] Health Maintenance Due Date Last Done Comments [...] Date/Time Associated Diagnosis Comments CHEMISTRY Routine 08/30/2024 [facility]AL LAB RESULTS Routine 08/25/2024 HD KINETICS Routine 08/25/2024 POST CHEMISTRY Routine 08/25/2024 CHEMISTRY Routine 08/25/2024 HEMATOLOGY Routine 08/25/2024 CHEMISTRY Routine 08/23/2024 HEMATOLOGY Routine 08/18/2024 CHEMISTRY Routine 08/16/2024 CHEMISTRY Routine 08/11/2024 HEMATOLOGY Routine 08/11/2024 CHEMISTRY Routine 08/06/2024 IMMUNO CHEMISTRY Routine 08/04/2024 HEMATOLOGY Routine 08/04/2024 CHEMISTRY Routine 08/04/2024 CHEMISTRY Routine 08/04/2024 [facility] HEMAL LAB RESULTS Routine 07/30/2024 HD KINETICS Routine 07/30/2024 POST CHEMISTRY Routine 07/30/2024 CHEMISTRY Routine 07/30/2024 HEMATOLOGY Routine 07/30/2024 HEMATOLOGY Routine 07/21/2024 CHEMISTRY Routine 07/19/2024 HEMATOLOGY Routine 07/14/2024 CHEMISTRY Routine 07/12/2024 SPECTRA HEMAL LAB RESULTS Routine 07/09/2024 HD KINETICS Routine 07/09/2024 POST CHEMISTRY Routine 07/09/2024 CHEMISTRY Routine 07/09/2024 IMMUNO CHEMISTRY Routine 07/07/2024 CHEMISTRY Routine 07/07/2024 SPECIAL CHEMISTRY Routine 07/07/2024 CHEMISTRY Routine 07/07/2024 HEMATOLOGY Routine 07/07/2024 CHEMISTRY Routine 07/05/2024 HEMATOLOGY Routine 06/30/2024 CHEMISTRY Routine 06/23/2024 HEMATOLOGY Routine 06/23/2024 SPECTRA HEMAL LAB RESULTS Routine 06/18/2024 HD KINETICS Routine 06/18/2024 POST CHEMISTRY Routine 06/18/2024 IMMUNO CHEMISTRY Routine 06/18/2024 CHEMISTRY Routine 06/18/2024 HEMATOLOGY Routine 06/18/2024 CHEMISTRY Routine 06/18/2024 from Last 3 Months Results * [facility] (08/30/2024) Only the most recent of18 resultswithin the time period is included. Potassium 4.5 3.5 - 5.1 mEq/L Printed Piece 08/30/2024 08/31/2024 10: 10 AM EDT Narrative [facility] - 08/31/2024 Unless otherwise specified, test(s) performed at: [facility], [address] [place] [address] CERTIFIED PEDIATRIC NURSE PRACTITIONER: Dwayne Fuentes M.D. For any questions, please call customer service at FREQUENCY:OTHER Resulting Agency Comment Specimen source: Serum Srinivas Agrawal MD LAB BLOOD ORDERABLES Final Result [facility] See order comments or contact performing lab Unknown, [place] * HD KINETICS (08/25/2024) Only the most recent of4 resultswithin the time period is included. % Urea Reduction 70 65 - 80 % [facility] 08/25/2024 08/26/2024 10: 40 AM EDT Narrative Resulting Agency Comment Specimen source: Plasma Srinivas Agrawal MD LAB BLOOD ORDERABLES Final Result [facility] See order comments or contact performing lab Unknown, [place] * POST CHEMISTRY (08/25/2024) Only the most recent of4 resultswithin the time period is included. Pathologist [facility] BUN Post Dialysis 14 6 - 19 mg/dL [facility] 08/25/2024 08/26/2024 10: 40 AM EDT Narrative [facility] - 08/27/2024 Unless otherwise specified, test(s) performed at: [facility], [address] [place] [address] CERTIFIED PEDIATRIC NURSE PRACTITIONER: Dwayne Fuentes M.D. For any questions, please call customer service at FREQUENCY:OTHER Resulting Agency Comment Specimen source: Plasma Srinivas Agrawal MD LAB BLOOD ORDERABLES Final Result Performing Organization Address City/[facility] Co de Phone Number [facility] See order comments or contact performing lab Unknown, [place] * (ABNORMAL) HEMATOLOGY (08/25/2024) Only the most recent of11 resultswithin the time period is included. [facility] Hemoglobin 8.2(L) 12.0 - 16.0 g/dL [facility] Hemoglobin x 3 24.6(L) 36.0 - 48.0 % [facility] 08/25/2024 08/26/2024 10: 15 AM EDT Narrative [facility] - 08/26/2024 Unless otherwise specified, test(s) performed at: [facility], [address] [place] [address] CERTIFIED PEDIATRIC NURSE PRACTITIONER: Dwayne Fuentes M.D. For any questions, please call customer service at FREQUENCY:OTHER Resulting Agency Comment Specimen source: Blood Srinivas Agrawal MD LAB BLOOD ORDERABLES Final Result Performing Organization Address City/[facility]/ZIP Co de Phone Number [facility] See order comments or contact performing lab Unknown, [place] * [facility]EMAL Lab Results (08/25/2024) Only the most recent of4 resultswithin the time period is included. Pathologist [facility] eNPCR 0.75 [facility] spKt/V (Daugirdas II) 1.40 [facility] eKt/V Gotch 1.18 [facility] eKdrt/V 1.18 [facility] nPCR_HD 0.83 [facility] Center PCR 43.29 [facility] Center spKt/V Gotch 1.40 [facility] eKt/V ([place]) 1.19 [facility] WSTDKT/V 2.3 [facility] 08/25/2024 08/25/2024 Hemal Ordering Provider LAB BLOOD ORDERABLES Final Result [facility] Center Contact Performing lab Unknown, [place] * IMMUNO CHEMISTRY (08/04/2024) Only the most recent of3 resultswithin the time period is included. Hep B Surface Ag Negative Negative [facility] 08/04/2024 08/05/2024 8:4 8 AM EDT Narrative Resulting Agency Comment Specimen source: Serum Srinivas Agrawal MD LAB BLOOD ORDERABLES Final Result Performing Organization Address [facility] de Phone Number [facility] See order comments or contact performing lab Unknown, [place] * SPECIAL CHEMISTRY (07/07/2024) Hemoglobin A1C 5.7 4.8 - 5.9 % Printed Piece 07/07/2024 07/10/2024 11: 15 AM EDT Narrative [facility] - 07/10/2024 Unless otherwise specified, test(s) performed at: [facility], [address] [place] [address] CERTIFIED PEDIATRIC NURSE PRACTITIONER: Dwayne Fuentes M.D. For any questions, please call customer service at FREQUENCY:MONTHLY Resulting Agency Comment Specimen source: Blood Srinivas Agrawal MD LAB BLOOD BANK TEST ORDERA BLES Final Result Performing Organization Address City/[facility] Co de Phone Number [facility] See order comments or contact performing lab Unknown, [place] from Last 3 Months Insurance [employer] Medicare Medicare [employer] Care Teams Help Desk Rep Relationship Specialty Start Date End Date Marita Wetzel DO [address] [place] [address] PCP - General Family Medicine 11/14/22
--- OUTSIDE RECORDS SUMMARY | 2024-08-31 14:37 | XMS_ITS | Encounter Summary ---
Author Organization [facility] Of [facility] Address [address] [place] [address] Phone Care Team Providers Care Concrete Fence Builder Name Role Phone Marita Wetzel DO Primary Care Provider Unava ilable Encounter Details Date Type Department Care Team (Late st Contact Info) Description 01/21/2024 Documentation Only [facility] Of [address] [place] [phone] Pauline Aguayo [address] [place] [phone] Social History Tobacco Use Types Packs/Day Years [...] Of [facility] Vascular Access Center [address] [place] [address] [place] [phone] 11/03/2024 12:30 PM EDT Scheduled Only [facility] V[facility] Access [place] [address] [place] [phone] documented as of this encounter Visit Diagnoses Not on filedocumented in this encounter Care Teams Concrete Fence Builder Relationship Specialty Start Date End Date Marita Wetzel DO [address] [place] [address] PCP - General Family Medicine 11/14/22 documented as of this encounter
--- OUTSIDE RECORDS SUMMARY | 2024-08-31 14:37 | XMS_ITS | Encounter Summary ---
Author Organization [facility] Of [facility] Address [address] [place] [address] Phone Care Team Providers Care Yoga Teacher Name Role Phone Marita Wetzel DO Primary Care Provider Unava ilable Encounter Details Date Type Department Care Team (Late st Contact Info) Description 10/03/2023 Documentation Only [facility] Of [address] [place] [address] Srinivas Agrawal MD [address] [place] [address] [place] [address] Social History Tobacco Use Types [...] Support [facility] Of [facility] Vascular Access [address] [place] [phone] 11/03/2024 12:30 PM EDT Scheduled Only [facility] Of [facility] Vascular Access [address] [place] [address] documented as of this encounter Visit Diagnoses Not on filedocumented in this encounter Care Teams Yoga Teacher Relationship Specialty Start Date End Date Marita Wetzel DO [address] [place] [address] PCP - General Family Medicine 11/14/22 documented as of this encounter
--- OUTSIDE RECORDS SUMMARY | 2024-08-31 14:37 | XMS_ITS | Encounter Summary ---
Author Organization [facility] Of [facility] Address [address] [place] [address] Phone Care Team Providers Care Religion Instructor Name Role Phone Marita Wetzel DO Primary Care Provider Unava ilable Encounter Details Date Type Department Care Team (Late st Contact Info) Description 08/11/2023 Documentation Only [facility] Of [address] [place] [phone] Hendrix, [place], [place] [address] [place] [phone] Social History Tobacco Use Types Packs/Day Years [...] Services Of [facility] Vascular Access Center [address] [place] [address] 11/03/2024 12:30 PM EDT Scheduled Only [facility] Of [facility] Vascular Access [place] [address] [place] [phone] documented as of this encounter Visit Diagnoses Not on filedocumented in this encounter Care Teams Religion Instructor Relationship Specialty Start Date End Date Mraita Wetzel DO [address] [place] [address] PCP - General Family Medicine 11/14/22 documented as of this encounter
--- OUTSIDE RECORDS SUMMARY | 2024-08-31 14:37 | XMS_ITS | Encounter Summary ---
Author Organization [facility] Of [facility] Address [address] [place] [address] Phone Care Team Providers Care Radio Operator Ground Name Role Phone Marita Wetzel DO Primary Care Provider Unava ilable Encounter Details Date Type Department Care Team (Late st Contact Info) Description 08/28/2023 Documentation Only [facility] Of [address] [place] [address] Hendrix, [place], [place] [address] [place] [phone] Social History Tobacco Use Types Packs/Day Years [...] Support [facility] Of [facility] Vascular Access Center [address] [place] [phone] 11/03/2024 12:30 PM EDT Scheduled Only [facility] Of [facility] Vascular Access [place] [address] [place] [phone] documented as of this encounter Visit Diagnoses Not on filedocumented in this encounter Care Teams Radio Operator Ground Relationship Specialty Start Date End Date Marita Wetzel DO [address] [place] [address] PCP - General Family Medicine 11/14/22 documented as of this encounter
--- OUTSIDE RECORDS SUMMARY | 2024-08-31 14:37 | XMS_ITS | Encounter Summary ---
Author Organization [facility] Of [facility] Address [address] [place] [address] Phone Care Team Providers Care Model Photographers' Name Role Phone Marita Wetzel DO Primary Care Provider Unava ilable Encounter Details Date Type Department Care Team (Late st Contact Info) Description 03/18/2023 Documentation Only [facility] Of [facility] [address] [place] [phone] Bernardo Doty MD [address] [place] [address] [place] [address] Social History Tobacco Use Types [...] Support [facility] Of [facility] Vascular Access Center [address] [place] [address] 11/03/2024 12:30 PM EDT Scheduled Only [facility] Of [facility] Vascular Access Center [address] [place] [phone] documented as of this encounter Visit Diagnoses Not on filedocumented in this encounter Care Teams Model Photographers' Relationship Specialty Start Date End Date Marita Wetzel DO [address] [place] [address] PCP - General Family Medicine 11/14/22 documented as of this encounter
--- OUTSIDE RECORDS SUMMARY | 2024-08-31 14:37 | XMS_ITS | Encounter Summary ---
Author Organization [facility] Of [facility] Address [address] [place] [address] Phone Care Team Providers Care Athletic Turf Worker Name Role Phone Marita Wetzel DO Primary Care Provider Unava ilable Encounter Details Date Type Department Care Team (Late st Contact Info) Description 10/17/2023 Documentation Only [facility] Of [address] [place] [phone] [place], [place] [address] [place] [phone] Social History Tobacco Use Types Packs/Day Years [...] Support [facility] Of [facility] Vascular Access Center [address] [place] [address] 11/03/2024 12:30 PM EDT Scheduled Only [facility] Of [facility] Vascular Access Center [address] [place] [phone] documented as of this encounter Visit Diagnoses Not on filedocumented in this encounter Care Teams Athletic Turf Worker Relationship Specialty Start Date End Date Marita Wetzel DO [address] [place] [address] PCP - General Family Medicine 11/14/22 documented as of this encounter
--- OUTSIDE RECORDS SUMMARY | 2024-08-31 14:37 | XMS_ITS | Encounter Summary ---
Author Organization [facility] Address [address] [place] [address] Phone Care Team Providers Care Supervisor Ride Assembly Name Role Phone Marita Wetzel DO Primary Care Provider Unava ilable Encounter Details Date Type Department Care Team (Late st Contact Info) Description 10/24/2023 Documentation Only [facility] [address] [place] [address] [place], [place], [place] [address] [place] [phone] Social History Tobacco Use Types Packs/Day Years [...] Support [facility] V[facility] Access [facility] [address] [place] [address] 11/03/2024 12:30 PM EDT Scheduled Only [facility] Vascular Access [place] [address] [place] [place] [phone] documented as of this encounter Visit Diagnoses Not on filedocumented in this encounter Care Teams Supervisor Ride Assembly Relationship Specialty Start Date End Date Marita Wetzel DO [address] [place] [address] PCP - General Family Medicine 11/14/22 documented as of this encounter
--- OUTSIDE RECORDS SUMMARY | 2024-08-31 14:37 | XMS_ITS | Encounter Summary ---
Author Organization [facility] Address [address] [place] [address] Phone Care Team Providers Care Precision Optics Technician Name Role Phone Marita Wetzel DO Primary Care Provider Unava ilable Encounter Details Date Type Department Care Team (Late st Contact Info) Description 10/06/2023 Documentation Only [facility] Of [address] [place] [address] [place], [place], [place] [address] [place] [address] Social History Tobacco Use Types Packs/Day Years [...] [facility] Vascular Access Center [address] [place] [address] 11/03/2024 12:30 PM EDT Scheduled Only [facility] Vascular Access [place] [address] [place] [phone] documented as of this encounter Visit Diagnoses Not on filedocumented in this encounter Care Teams Precision Optics Technician Relationship Specialty Start Date End Date Marita Wetzel DO [address] [place] [address] PCP - General Family Medicine 11/14/22 documented as of this encounter
--- OUTSIDE RECORDS SUMMARY | 2024-08-31 14:37 | XMS_ITS | Encounter Summary ---
Author Organization [employer] Address [address] [facility] 7t [place] [address] Care Team Providers Care Floor Waxer Name Role Phone Marita Wetzel DO Primary Care Provider +1- [phone] Carmen Becker PharmD Unavailable [phone] Encounter Details Date Type Department Care Team ([facility] st Contact Info) Description 04/29/2023 Telephone [facility] MEDICINE [address] [place] [address] Marita Wetzel DO [address] [place] [address] Social History Tobacco Use Types Packs/Day Years [...] documented as of this encounter Care Teams Floor Waxer Relationship Specialty Start Date End Date Marita Wetzel DO [address] [place] [address] PCP - General Family Medicine 04/21/18 Carmen Becker PharmD [address] [place] [address] Pharmacist Internal Medicine 07/21/23 01/21/24 [facility] 05/22/24 documented as of this encounter
--- OUTSIDE RECORDS SUMMARY | 2024-08-31 14:37 | XMS_ITS | Encounter Summary ---
Author Organization [facility] Address [address] [place] [address] Care Team Providers Care Industrial Property Appraiser Name Role Phone Marita Wetzel DO Primary Care Provider +1- [phone] Encounter Details Date Type Department Care Team (Late st Contact Info) Description 04/29/2024 Lab Requisition [facility] - Main Lab [address] [facility] [place] [phone] Marily Gordillo MD [address] [place] [phone] Chronic embolism and thrombosis of unspecified vein; [...] unspecified documented in this encounter Care Teams Industrial Property Appraiser Relationship Specialty Start Date End Date Marita Wetzel DO 230 [place], [place] PCP - General 01/09/23 documented as of this encounter
--- OUTSIDE RECORDS SUMMARY | 2024-08-31 14:37 | XMS_ITS | Encounter Summary ---
Author Organization [facility] Address [address] [place] [address] Phone Care Team Providers Care Bellows Filler Name Role Phone Marita Wetzel DO Primary Care Provider Unava ilable Encounter Details Date Type Department Care Team (Late st Contact Info) Description 05/01/2023 Documentation Only [facility] Of [address] [place] [address] [place], [place] [address] [place] [phone] Social History Tobacco Use Types Packs/Day Years [...] Of [facility] Vascular Access Center [address] [place] [address] 11/03/2024 12:30 PM EDT Scheduled Only [facility] Vascular Access [place] [address] [place] [phone] Scheduled Orders Name Type Priority Associated Diagnoses [...] Primary documented in this encounter Care Teams Bellows Filler Relationship Specialty Start Date End Date Marita Wetzel DO [address] [place] [address] PCP - General Family Medicine 11/14/22 documented as of this encounter
--- OUTSIDE RECORDS SUMMARY | 2024-08-31 14:37 | XMS_ITS | Encounter Summary ---
Author Organization [facility] Address [address] [place] [address] Phone Care Team Providers Care Drill Presser Name Role Phone Marita Wetzel DO Primary Care Provider Unava ilable Encounter Details Date Type Department Care Team (Late st Contact Info) Description 09/11/2023 Documentation Only [facility] Of [address] [place] [address] Pauline Aguayo [address] [place] [address] Social History Tobacco Use Types Packs/Day Years [...] And Transplant Services Of [facility] Vascular Access Center [address] [phone] 11/03/2024 12:30 PM EDT Scheduled Only [facility] V[facility] Access [facility] [address] [place] [address] documented as of this encounter Visit Diagnoses Not on filedocumented in this encounter Care Teams Drill Presser Relationship Specialty Start Date End Date Marita Wetzel DO [address] [place] [address] PCP - General Family Medicine 11/14/22 documented as of this encounter
--- OUTSIDE RECORDS SUMMARY | 2024-08-31 14:37 | XMS_ITS | Encounter Summary ---
Author Organization [employer] Address [address] [facility] 7t [place] [address] Care Team Providers Care Welder Apprentice Name Role Phone Marita Wetzel DO Primary Care Provider +1- [phone] Carmen Becker PharmD Unavailable [phone] Reason for Visit * Reason Onset Date Comments Prior Authorization 04/25/2023 [employer] Encounter Details Date Type Department Care Team ([facility] st Contact Info) Description 04/25/2023 Telephone [facility] MEDICINE [address] [place] [address] Marita Wetzel DO [address] [place] [address] Prior Authorization ([employer]) Social History Tobacco [...] documented as of this encounter Care Teams Welder Apprentice Relationship Specialty Start Date End Date Marita Wetzel DO [address] [place] [address] PCP - General Family Medicine 04/21/18 Carmen Becker, PharmD [address] [place] [address] Pharmacist Internal Medicine 07/21/23 01/21/24 [facility] 05/22/24 documented as of this encounter
--- OUTSIDE RECORDS SUMMARY | 2024-08-31 14:37 | XMS_ITS | Encounter Summary ---
Author Organization [facility] Address [address] [place] [address] Care Team Providers Care Green Jobs Trainer Name Role Phone Marita Wetzel DO Primary Care Provider +1- [phone] Encounter Details Date Type Department Care Team (Late st Contact Info) Description 05/31/2024 Lab Requisition [facility] - Main Lab [address] [facility] [place] [phone] Marily Gordillo MD [address] [place] [address] Acute kidney failure, unspecified (CMS/HCC V24); Chronic [...] unspecified documented in this encounter Care Teams Green Jobs Trainer Relationship Specialty Start Date End Date Marita Wetzel DO [address] [place], [place] PCP - General 01/09/23 documented as of this encounter
--- OUTSIDE RECORDS SUMMARY | 2024-08-31 14:37 | XMS_ITS | Encounter Summary ---
Author Organization [facility] Address [address] [place] [address] Phone Care Team Providers Care Cso Name Role Phone Marita Wetzel DO Primary Care Provider Unava ilable Encounter Details Date Type Department Care Team (Late st Contact Info) Description 12/31/2022 Documentation Only [facility] [address] [place] [phone] Candace Adam PA Social History Tobacco Use [...] Center [address] [place] [place] [address] 11/03/2024 12:30 PM EDT Scheduled Only [facility] Vascular Access [address] [place] [address] documented as of this encounter Visit Diagnoses Not on filedocumented in this encounter Care Teams Cso Relationship Specialty Start Date End Date Marita Wetzel DO [address] [place] [address] PCP - General Family Medicine 11/14/22 documented as of this encounter
--- OUTSIDE RECORDS SUMMARY | 2024-08-31 14:37 | XMS_ITS | Encounter Summary ---
Author Organization [facility] Address [address] [place] [address] Phone Care Team Providers Care Adjunct Trainer Name Role Phone Marita Wetzel DO Primary Care Provider Unava ilable Encounter Details Date Type Department Care Team (Late st Contact Info) Description 06/25/2022 Documentation Only [facility] Of [address] [place] [address] Pauline Aguayo [address] [place] [address] Social History Tobacco Use Types Packs/Day Years [...] Support [facility] Vascular Access Center [address] [place] [address] 11/03/2024 12:30 PM EDT Scheduled Only [facility] V[facility] Access Center [address] [place] [address] documented as of this encounter Visit Diagnoses Not on filedocumented in this encounter Care Teams Adjunct Trainer Relationship Specialty Start Date End Date Marita Wetzel DO [address] [place] [address] PCP - General Family Medicine 11/14/22 documented as of this encounter
--- OUTSIDE RECORDS SUMMARY | 2024-08-31 14:37 | XMS_ITS | Encounter Summary ---
Author Organization [employer] Address [address] [facility] 7t [place] [address] Care Team Providers Care Coding Assistant Name Role Phone Marita Wetzel DO Primary Care Provider Carmen Becker PharmD Unavailable [phone] Encounter Details Date Type Department Care Team (Late st Contact Info) Description 10/14/2022 Abstract [facility] MEDICINE [address] [place] [address] Marita Wetzel DO [address] [place] [address] Social History Tobacco Use Types Packs/Day Years [...] documented as of this encounter Care Teams Coding Assistant Relationship Specialty Start Date End Date Marita Wetzel DO [address] [place] [address] PCP - General Family Medicine 04/21/18 Carmen Becker PharmD [address] [place] [address] Pharmacist Internal Medicine 07/21/23 01/21/24 [facility] 05/22/24 documented as of this encounter
--- OUTSIDE RECORDS SUMMARY | 2024-08-31 14:37 | XMS_ITS | Encounter Summary ---
Author Organization [facility] Address [address] [place] [address] Care Team Providers Care Clinical Sociologist Name Role Phone Marita Wetzel DO Primary Care Provider +1- [phone] Encounter Details Date Type Department Care Team (Late st Contact Info) Description 05/15/2024 Lab Requisition [facility] - Main Lab [address] [facility] [place] [address] Marily Gordillo MD [address] [place] [phone] Chronic embolism and thrombosis of unspecified vein; [...] unspecified documented in this encounter Care Teams Clinical Sociologist Relationship Specialty Start Date End Date Marita Wetzel DO [address] [place], [place] PCP - General 01/09/23 documented as of this encounter
--- OUTSIDE RECORDS SUMMARY | 2024-08-31 14:37 | XMS_ITS ---
Author Organization [facility] Address [address] [place] [address] Care Team Providers Care Melon Packer Name Role Phone Miryam Tyson Unavailable [phone] REASON FOR VISIT Cancel Encounters Encounter Location Date Provider Diagnosis [facility] [address] [place] [address] 06/17/2024 Miryam Tyson Plan Of Treatment No Information Progress Notes * Chris BEARDB:1960 (64 yo F)Acc No.[id number]:06/17/2024 Patient:?Alix BEARD :1960???Age:64 Y???Sex:Female Address:[address] [place] [address], [address] * true * Date:? Generated for Binui danielle/Chloe/eTransmitting on:?08/31/2024 02:37 PM EDT
--- OUTSIDE RECORDS SUMMARY | 2024-08-31 14:37 | XMS_ITS | Encounter Summary ---
Author Organization [facility] Address [address] [place] [address] Phone Care Team Providers Care Academic Affairs Assistant Name Role Phone Marita Wetzel DO Primary Care Provider Unava ilable Encounter Details Date Type Department Care Team (Late st Contact Info) Description 09/12/2023 Documentation Only [facility] Of [address] [place] [address] [place], [place] [address] [place] [address] Social History Tobacco Use Types Packs/Day Years [...] And Transplant Services Of [facility] Vascular Access Center [address] [place] [address] 11/03/2024 12:30 PM EDT Scheduled Only [facility] Vascular Access [place] [address] [place] [address] documented as of this encounter Visit Diagnoses Not on filedocumented in this encounter Care Teams Academic Affairs Assistant Relationship Specialty Start Date End Date Marita Wetzel DO [address] [place] [address] PCP - General Family Medicine 11/14/22 documented as of this encounter
--- OUTSIDE RECORDS SUMMARY | 2024-08-31 14:37 | XMS_ITS | Patient Health Record ---
Author Organization [facility] Address [address] [place] [address] Care Team Providers Care Used Car Lot Porter Name Role Phone FiorellasylwiaMiryam Unavailable [phone] Reason For Referral No Information Encounters Encounter Location Date Provider Diagnosis [facility] [address] [place] [address] 04/22/2024 Miryam Tyson [facility] [address] [place] [address] 06/17/2024 iMryam Tyson Plan Of Treatment No Information Insurance Providers Payer Name Payer Address Payer Phone Subscriber Number Group Number Insured Name Patient Relationship to Insured Coverage Start Date Coverage End Date Medicare [facility] [address] [place] [address] [id number] Alix Sharp Self - patient is the insured for Life [address] [place] [phone] [id number] Alix Sharp Self - patient is the insured
--- OUTSIDE RECORDS SUMMARY | 2024-08-31 14:37 | XMS_ITS | Encounter Summary ---
Author Organization [facility] Address [address] [place] [address] Care Team Providers Care Alberene Stone Setter Name Role Phone Marita Wetzel DO Primary Care Provider [phone]- [phone] Encounter Details Date Type Department Care Team (Late st Contact Info) Description 05/12/2024 Lab Requisition [facility] - Main Lab [address] [facility] [place] [phone] Marily Gordillo MD [address] [place] [address] Chronic kidney disease, unspecified; Anemia, [...] unspecified documented in this encounter Care Teams Alberene Stone Setter Relationship Specialty Start Date End Date Marita Wetzel DO [address] [place] [address] PCP - General 01/09/23 documented as of this encounter
--- OUTSIDE RECORDS SUMMARY | 2024-08-31 14:37 | XMS_ITS | Encounter Summary ---
Author Organization [facility] Address [address] [place] [address] Phone Care Team Providers Care Matcher Offbearer Name Role Phone Marita Wetzel DO Primary Care Provider Unava ilable Encounter Details Date Type Department Care Team (Late st Contact Info) Description 12/09/2022 Documentation Only [facility] [address] [phone] Candace Adam PA Social History Tobacco Use [...] Support [facility] Of [facility] Vascular Access Center [address] [place] [address] 11/03/2024 12:30 PM EDT Scheduled Only [facility] Vascular Access [place] [address] [place] [address] documented as of this encounter Visit Diagnoses Not on filedocumented in this encounter Care Teams Matcher Offbearer Relationship Specialty Start Date End Date Marita Wetzel DO [address] [place] [address] PCP - General Family Medicine 11/14/22 documented as of this encounter
--- OUTSIDE RECORDS SUMMARY | 2024-08-31 14:37 | XMS_ITS | Encounter Summary ---
Author Organization [facility] Address [address] [place] [address] Care Team Providers Care Case Aide Name Role Phone Marita Wetzel DO Primary Care Provider [phone]- [phone] Encounter Details Date Type Department Care Team (Late st Contact Info) Description 05/30/2024 Lab Requisition [facility] - Main Lab [address] [facility] [place] [phone] Marily Gordillo MD [address] [place] [phone] Chronic embolism and thrombosis of unspecified vein; [...] unspecified documented in this encounter Care Teams Case Aide Relationship Specialty Start Date End Date Marita Wetzel DO [address] [place], [place] PCP - General 01/09/23 documented as of this encounter
--- OUTSIDE RECORDS SUMMARY | 2024-08-31 14:37 | XMS_ITS | Encounter Summary ---
Author Organization [employer] Address [address] [facility] [address] [place] [address] Care Team Providers Care Soft Work Wrapper Examiner Name Role Phone Marita Wetzel DO Primary Care Provider [phone] Reason for Visit * Reason Onset Date Comments Med Refill 06/25/2024 Encounter Details Date Type Department Care Team ([facility] st Contact Info) Description 06/25/2024 Telephone [facility] MEDICINE [address] [place] [address] Marita Wetzel DO [address] [place] [address] Med Refill Social History Tobacco Use Types [...] be sent to: [facility]/pharmacy #[id number] *states it was prescribed before documented [...] documented as of this encounter Care Teams Soft Work Wrapper Examiner Relationship Specialty Start Date End Date Marita Wetzel DO [address] [place] [address] PCP - General Family Medicine 04/21/18 [facility] 05/22/24 documented as of this encounter
--- OUTSIDE RECORDS SUMMARY | 2024-08-31 14:37 | XMS_ITS | Encounter Summary ---
Author Organization [facility] [place] [address] Phone Care Team Providers Care Component Design Engineer Name Role Phone Marita Wetzel DO Primary Care Provider Unava ilable Encounter Details Date Type Department Care Team (Late st Contact Info) Description 03/18/2023 Documentation Only [facility] Of [address] [place] [address] Srinivas Agrawal MD [address] [place] [address] [place] [address] Social History Tobacco Use Types [...] Support [facility] Of [facility] Vascular Access [address] [place] [phone] 11/03/2024 12:30 PM EDT Scheduled Only [facility] Vascular Access [address] [place] [address] documented as of this encounter Visit Diagnoses Not on filedocumented in this encounter Care Teams Component Design Engineer Relationship Specialty Start Date End Date Marita Wetzel DO [address] [place] [address] PCP - General Family Medicine 11/14/22 documented as of this encounter
--- OUTSIDE RECORDS SUMMARY | 2024-08-31 14:37 | XMS_ITS | Encounter Summary ---
Author Organization [facility] [place], Address [address] [place] [address] Phone Care Team Providers Care Plodding Machine Operator Name Role Phone Marita Wetzel DO Primary Care Provider Unava ilable Encounter Details Date Type Department Care Team (Late st Contact Info) Description 04/02/2023 Documentation Only [facility] Of [facility] [place] [address] Bernardo Doty MD [address] [facility] [place] [address] Social History Tobacco Use Types Packs/Day Years [...] Support [facility] Of [facility] Vascular Access Center [address] [place] [address] [place] [address] 11/03/2024 12:30 PM EDT Scheduled Only [facility] Of [facility] Vascular Access [place] [address] [address] documented as of this encounter Visit Diagnoses Not on filedocumented in this encounter Care Teams Plodding Machine Operator Relationship Specialty Start Date End Date Marita Wetzel DO [address] [place] [address] PCP - General Family Medicine 11/14/22 documented as of this encounter
--- OUTSIDE RECORDS SUMMARY | 2024-08-31 14:37 | XMS_ITS | Encounter Summary ---
Author Organization [facility], Address [address] [facility] [place] [address] Phone Care Team Providers Care Maintenance Helper Utility Engineer Name Role Phone Marita Wetzel DO Primary Care Provider Unava ilable Reason for Visit * Reason Comments Med Refill Encounter Details Date Type Department Care Team (Late Contact Info) Description 06/30/2024 Refill [facility] [address] [place] [address] Srinivas Agrawal MD [address] [facility] [place] [phone] Social History Tobacco Use Types Packs/Day Years [...] Support [facility] V[facility] Access Center [address] [place] [address] 11/03/2024 12:30 PM EDT Scheduled Only [facility] [address] [place] [phone] documented as of this encounter Procedures Procedure Name Priority Date/Time Associated Diagnosis Comments HEMATOLOGY Routine 06/30/2024 documented in this encounter Results * (ABNORMAL) HEMATOLOGY (06/30/2024) Hemoglobin 6.3(L) 12.0 - 16.0 g/dL [facility] Hemoglobin x 3 18.9(L) 36.0 - 48.0 % [facility] 06/30/2024 07/01/2024 10: 49 AM EDT Narrative [facility] - 07/01/2024 Unless otherwise specified, test(s) performed at: [facility], [address] [place] [address] ACOUSTICAL LOGGING ENGINEER: Dwayne Fuentes M.D. For any questions, please call customer service at FREQUENCY:OTHER Resulting Agency Comment Specimen source: Blood Srinivas Agrawal MD LAB BLOOD ORDERABLES Final Result [facility] See order comments or contact performing lab Unknown, [place] documented in this encounter Visit Diagnoses Not on filedocumented in this encounter Care Teams Maintenance Helper Utility Engineer Relationship Specialty Start Date End Date Marita Wetzel DO [address] [place] [address] PCP - General Family Medicine 11/14/22 documented as of this encounter
--- OUTSIDE RECORDS SUMMARY | 2024-08-31 14:38 | XMS_ITS | Encounter Summary ---
Author Organization [facility], Address [address] [place] [address] Phone Care Team Providers Care Racing Car Driver Name Role Phone Marita Wetzel DO Primary Care Provider Unava ilable Reason for Visit * Reason Comments Med Refill Encounter Details Date Type Department Care Team (Late Contact Info) Description 05/08/2021 Refill [facility] [address] [place] [phone] Bernardo Doty MD [address] [facility] [address] [place] [phone] Social History Tobacco Use Types Packs/Day Years [...] Support [facility] Vascular Access Center [address] [place] [address] 11/03/2024 12:30 PM EDT Scheduled Only [facility] V[facility] Access Center [address] [place] [address] documented as of this encounter Visit Diagnoses Not on filedocumented in this encounter Care Teams Racing Car Driver Relationship Specialty Start Date End Date Marita Wetzel DO [address] [place] [address] PCP - General Family Medicine 11/14/22 documented as of this encounter
--- OUTSIDE RECORDS SUMMARY | 2024-08-31 14:38 | XMS_ITS | Encounter Summary ---
Author Organization [facility] Address [address] [place] [address] Phone Care Team Providers Care Litigation Counsel Name Role Phone Marita Wetzel DO Primary Care Provider Unava ilable Encounter Details Date Type Department Care Team (Late st Contact Info) Description 04/13/2024 Documentation Only [facility] [address] [place] [address] [place], [place], [place] [address] [place] [address] Social History Tobacco Use Types Packs/Day Years [...] [facility] Vascular Access Center [address] [address] 11/03/2024 12:30 PM EDT Scheduled Only [facility] Vascular Access [place] [address] [place] [address] documented as of this encounter Visit Diagnoses Not on filedocumented in this encounter Care Teams Litigation Counsel Relationship Specialty Start Date End Date Marita Wetzel DO [address] [place] [address] PCP - General Family Medicine 11/14/22 documented as of this encounter
--- OUTSIDE RECORDS SUMMARY | 2024-08-31 14:38 | XMS_ITS | Encounter Summary ---
Author Organization [facility] Address [address] [place] [address] Care Team Providers Care Diploma Dental Assistant Name Role Phone Marita Wetzel Primary Care Provider +1- [phone] Encounter Details Date Type Department Care Team (Late st Contact Info) Description 04/23/2024 Lab Requisition [facility] - Main Lab [address] [place] [phone] Marily Gordillo MD [address] [place] [address] Chronic embolism and thrombosis of [...] LAB BLOOD ORDERABLES Final Resul t [facility] [address] [place] [address], documented in this encounter Visit Diagnoses Diagnosis Chronic embolism and thrombosis of unspecified vein Acute kidney failure, unspecified (CMS/HCC V24) Acute kidney failure, unspecified documented in this encounter Care Teams Diploma Dental Assistant Relationship Specialty Start Date End Date Marita Wetzel DO [address] [place] [address] PCP - General 01/09/23 documented as of this encounter
--- OUTSIDE RECORDS SUMMARY | 2024-08-31 14:38 | XMS_ITS | Encounter Summary ---
Author Organization [facility] Address [address] [place] [address] Phone Care Team Providers Care Finger Cobbler Name Role Phone Marita Wetzel DO Primary Care Provider Unava ilable Encounter Details Date Type Department Care Team (Late st Contact Info) Description 07/29/2023 Documentation Only [facility] [address] [place] [address] Pauline Aguayo [address] [place] [phone] Social History Tobacco Use Types Packs/Day Years [...] Support [facility] Vascular Access Center [address] [place] [address] 11/03/2024 12:30 PM EDT Scheduled Only [facility] V[facility] Access Center [address] [place] [address] documented as of this encounter Visit Diagnoses Not on filedocumented in this encounter Care Teams Finger Cobbler Relationship Specialty Start Date End Date Marita Wetzel DO [address] [place] [address] PCP - General Family Medicine 11/14/22 documented as of this encounter
--- OUTSIDE RECORDS SUMMARY | 2024-08-31 14:38 | XMS_ITS | Encounter Summary ---
Author Organization [facility] Address [address] [place] [address] Care Team Providers Care Roller Machine Operator Name Role Phone Marita Wetzel Primary Care Provider +1- [phone] Encounter Details Date Type Department Care Team (Late st Contact Info) Description 03/12/2024 Lab Requisition [facility] - Main Lab [address] [facility] [place] [address] Catalina Burr MD [address] [place], [place] [phone] Chronic embolism and thrombosis of unspecified vein; [...] Test performed at [facility], [facility] [address] [place], [place] [address] ? [phone] Ashtyn Leigh MD, PhD - Lamp Stack Developer Blood Venous blood specimen / Unknown Venipuncture / Unknown 03/15/2024 8:20 AM EST 03/15/2024 10:20 AM EST us Catalina Burr MD LAB BLOOD ORDERABLES Final Resul [place] [address] * (ABNORMAL) Renal function panel (03/15/2024 8:20 AM EST) Sodium 139 133 - 145 mmol/L LAB CHEMISTRY METHOD 03/15/2024 11:31 AM [facility] Potassium 5.6(H) 3.5 - 5.5 mmol/L LAB CHEMISTRY METHOD 03/15/2024 11:31 AM [facility] Chloride 108 96 - 110 mmol/L LAB CHEMISTRY METHOD 03/15/2024 11:31 AM [facility] CO2 19(L) 21 - 32 mmol/L LAB CHEMISTRY METHOD 03/15/2024 11:31 AM [facility] Anion Gap 12(H) 3 - 11 LAB CHEMISTRY METHOD 03/15/2024 11:31 AM [facility] Glucose 105(H) 70 - 100 mg/dL LAB CHEMISTRY METHOD 03/15/2024 11:31 AM [facility] BUN 36(H) 5 - 25 mg/dL LAB CHEMISTRY METHOD 03/15/2024 11:31 AM [facility] Creatinine 3.97(H) 0.50 - 1.10 mg/dL LAB CHEMISTRY METHOD 03/15/2024 11:31 AM [facility] eGFR 12(L) >=60 mL/min/1. 73m2 LAB CHEMISTRY METHOD 03/15/2024 11:31 AM [facility] Comment:Calculation based on the??Chronic Kidney Disease Epidemiology Collaboration (CKD-EPI) equation refit??without adjustment for race. BUN/Creatinine Ratio 9.1 LAB CHEMISTRY METHOD 03/15/2024 11:31 AM EST [facility] Albumin 2.6(L) 3.2 - 5.0 g/dL LAB CHEMISTRY METHOD 03/15/2024 11:31 AM EST [facility] Calcium 9.5 8.5 - 10.5 mg/dL LAB CHEMISTRY METHOD 03/15/2024 11:31 AM EST [facility] Phosphorus 4.0 2.5 - 4.5 mg/dL LAB CHEMISTRY METHOD 03/15/2024 11:31 AM EST [facility] Blood Venous blood specimen / Unknown Venipuncture / Unknown 03/15/2024 8:20 AM EST 03/15/2024 10:16 AM EST us Catalina Burr MD LAB BLOOD ORDERABLES Final Resul t [facility] LAB [address] [place] [address], documented in this encounter Visit Diagnoses Diagnosis Chronic embolism and thrombosis of unspecified vein Acute kidney failure, unspecified (CMS/HCC V24) Acute kidney failure, unspecified Type 2 diabetes mellitus without complications (CMS/HCC V24, CMS/HCC V28) documented in this encounter Care Teams Roller Machine Operator Relationship Specialty Start Date End Date Marita Wetzel DO [address] [place] [address] PCP - General 01/09/23 documented as of this encounter
--- OUTSIDE RECORDS SUMMARY | 2024-08-31 14:38 | XMS_ITS | Encounter Summary ---
Author Organization [facility] Address [address] [place] [address] Care Team Providers Care Medical Planner Name Role Phone Marita Wetzel DO Primary Care Provider +1- [phone] Encounter Details Date Type Department Care Team (Late st Contact Info) Description 2024 Lab Requisition [facility] - Main Lab [address] [facility] [place] [phone] Marily Gordillo MD [address] [place] [address] Chronic kidney disease, unspecified; Anemia, [...] unspecified documented in this encounter Care Teams Medical Planner Relationship Specialty Start Date End Date Marita Wetzel DO [address] [place] [address] PCP - General 01/09/23 documented as of this encounter
--- OUTSIDE RECORDS SUMMARY | 2024-08-31 14:38 | XMS_ITS | Encounter Summary ---
Author Organization [facility] Address [address] [place] [address] Care Team Providers Care Insurance Account Manager Name Role Phone Marita Wetzel DO Primary Care Provider +1- [phone] Encounter Details Date Type Department Care Team (Late st Contact Info) Description 03/15/2024 Lab Requisition [facility] - Main Lab 299 [facility] [place] [phone] Catalina Burr MD [address] [place] [address] Acute kidney failure, unspecified (CMS/HCC V24); Chronic [...] vein documented in this encounter Care Teams Insurance Account Manager Relationship Specialty Start Date End Date Marita Wetzel DO [address] [place], [place] PCP - General 01/09/23 documented as of this encounter
--- OUTSIDE RECORDS SUMMARY | 2024-08-31 14:38 | XMS_ITS | Encounter Summary ---
Author Organization [facility] Address [address] [place] [address] Care Team Providers Care Grinding Room Inspector Name Role Phone Marita Wetzel DO Primary Care Provider +1- [phone] Encounter Details Date Type Department Care Team (Late st Contact Info) Description 04/28/2024 Lab Requisition [facility] - Main Lab [address] [facility] [employer] [place] [phone] Marily Gordillo MD [address] [place] [address] Chronic kidney disease, unspecified; Anemia, [...] unspecified documented in this encounter Care Teams Grinding Room Inspector Relationship Specialty Start Date End Date Marita Wetzel DO [address] [place] [address] PCP - General 01/09/23 documented as of this encounter
--- OUTSIDE RECORDS SUMMARY | 2024-08-31 14:38 | XMS_ITS | Encounter Summary ---
Author Organization [facility] Address [address] [place] [address] Phone Care Team Providers Care Research Biologist Name Role Phone Marita Wetzel DO Primary Care Provider Unava ilable Encounter Details Date Type Department Care Team (Late st Contact Info) Description 11/11/2022 Documentation Only [facility] [address] [place] [address] Pauline Aguayo [address] [place] [address] Social History Tobacco Use Types Packs/Day Years [...] Support [facility] Vascular Access Center [address] [place] [address] 11/03/2024 12:30 PM EDT Scheduled Only [facility] Vascular Access Center [address] [place] [address] documented as of this encounter Visit Diagnoses Not on filedocumented in this encounter Care Teams Research Biologist Relationship Specialty Start Date End Date Marita Wetzel DO [address] [place] [address] PCP - General Family Medicine 11/14/22 documented as of this encounter
--- OUTSIDE RECORDS SUMMARY | 2024-08-31 14:38 | XMS_ITS | Encounter Summary ---
Author Organization [facility] Address [address] [place] [address] Phone Care Team Providers Care Soil Fertility Extension Specialist Name Role Phone Marita Wetzel DO Primary Care Provider Unava ilable Encounter Details Date Type Department Care Team (Late st Contact Info) Description 09/26/2022 Documentation Only [facility] [address] [place] [phone] Candace Adam PA Social History Tobacco Use [...] And Transplant [facility] Vascular Access Center [address] [place] [address] 11/03/2024 12:30 PM EDT Scheduled Only [facility] Vascular Access [place] [address] [place] [address] documented as of this encounter Visit Diagnoses Not on filedocumented in this encounter Care Teams Soil Fertility Extension Specialist Relationship Specialty Start Date End Date Marita Wetzel DO [address] [place] [address] PCP - General Family Medicine 11/14/22 documented as of this encounter
--- OUTSIDE RECORDS SUMMARY | 2024-08-31 14:38 | XMS_ITS | Encounter Summary ---
Author Organization [facility] Address [address] [place] [address] Phone Care Team Providers Care Cage Maker Name Role Phone Marita Wetzel DO Primary Care Provider Unava ilable Encounter Details Date Type Department Care Team (Late st Contact Info) Description 04/17/2024 Documentation Only [facility] [address] [address] [place] [address] [place], [place], [place] [address] [place] [address] Social History Tobacco Use Types Packs/Day Years [...] [facility] Vascular Access Center [address] [place] [address] 11/03/2024 12:30 PM EDT Scheduled Only [facility] Vascular Access [place] [address] [address] [place] [place] [address] documented as of this encounter Visit Diagnoses Not on filedocumented in this encounter Care Teams Cage Maker Relationship Specialty Start Date End Date Marita Wetzel DO [address] [place] [address] PCP - General Family Medicine 11/14/22 documented as of this encounter
--- OUTSIDE RECORDS SUMMARY | 2024-08-31 14:38 | XMS_ITS | Encounter Summary ---
Author Organization [employer] Address [address] [facility] [address] [place] [address] Care Team Providers Care Metabolic Specialist Name Role Phone Marita Wetzel DO Primary Care Provider + [phone] Reason for Visit * Reason Onset Date Comments Hospital Follow-up 06/11/2024 Encounter Details Date Type Department Care Team ([facility] st Contact Info) Description 06/11/2024 Telephone [facility] [address] [place] [address] Marita Wetzel DO [address] [place] [address] Hospital Follow-up Social History Tobacco Use Types [...] from pt requesting a HDF appt. [facility]: [facility] Date of admission: 05/31/2024 Discharge date: ------ Diagnosed:kidney failure *Send message to [place] Clinical Care Coordinators documented in this encounter [...] documented as of this encounter Care Teams Metabolic Specialist Relationship Specialty Start Date End Date Marita Wetzel DO [address] [place] [address] PCP - General Family Medicine 04/21/18 [facility] 2/1/25 documented as of this encounter
--- OUTSIDE RECORDS SUMMARY | 2024-08-31 14:38 | XMS_ITS | Encounter Summary ---
Author Organization [facility] Address [address] [place] [address] Care Team Providers Care Staker Surveying Name Role Phone Marita Wetzel Primary Care Provider +1- [phone] Encounter Details Date Type Department Care Team (Late st Contact Info) Description 02/25/2024 Lab Requisition [facility] - Main Lab [address] [facility] [place] [address] Catalina Burr MD [address] [place] [address] Chronic embolism and thrombosis of unspecified vein; [...] Travel phlebotomy fee (02/25/2024 6:30 AM EST) [facility] TRAVEL PHLEBOTOMY FEE Completed 02/25/2024 11:01 AM EST [facility] Blood Venous blood specimen / Unknown Venipuncture / Unknown 02/25/2024 6:30 AM EST 02/25/2024 10:25 AM EST us Catalina Burr MD LAB BLOOD ORDERABLES Final Resul t [facility] [address] [place] [address], * (ABNORMAL) Tacrolimus level (02/25/2024 6:30 AM [...] at [facility], [address] , [place], [place] [address] ? [phone] Ashtyn Leigh MD, PhD - Pediatric Clinical Dietician Blood Venous blood specimen / Unknown Venipuncture / Unknown 02/25/2024 6:30 AM EST 02/25/2024 10:25 AM EST us Catalina Burr MD LAB BLOOD ORDERABLES Final Resul t [facility] [address] [place] [address] documented in this encounter Visit Diagnoses Diagnosis Chronic embolism and thrombosis of unspecified vein Acute kidney failure, unspecified (CMS/HCC V24) Acute kidney failure, unspecified documented in this encounter Care Teams Staker Surveying Relationship Specialty Start Date End Date Marita Wetzel DO [address] [place] [address] PCP - General 01/09/23 documented as of this encounter
--- OUTSIDE RECORDS SUMMARY | 2024-08-31 14:38 | XMS_ITS | Encounter Summary ---
Author Organization [facility] Address [address] [place] [address] Phone Care Team Providers Care Ladle Builder Name Role Phone Marita Wetzel DO Primary Care Provider Unava ilable Encounter Details Date Type Department Care Team (Late st Contact Info) Description 06/12/2023 Documentation Only [facility] [address] [place] [place] [address] Hendrix, [place], [place] [address] [place] [phone] Social History Tobacco Use Types Packs/Day Years [...] Support [facility] Vascular Access Center [address] [place] [address] 11/03/2024 12:30 PM EDT Scheduled Only [facility] Vascular Access [place] [address] [place] [address] documented as of this encounter Visit Diagnoses Not on filedocumented in this encounter Care Teams Ladle Builder Relationship Specialty Start Date End Date Marita Wetzel DO [address] [place] [address] PCP - General Family Medicine 11/14/22 documented as of this encounter
--- OUTSIDE RECORDS SUMMARY | 2024-08-31 14:38 | XMS_ITS | Encounter Summary ---
Author Organization [facility] Address [address] [place] [address] Phone Care Team Providers Care Glassware Defect Repairer Name Role Phone Marita Wetzel DO Primary Care Provider Unava ilable Encounter Details Date Type Department Care Team (Late st Contact Info) Description 06/23/2023 Documentation Only [facility] Of [address] [place] [address] [place], [place] [address] [place] [phone] Social History Tobacco Use Types Packs/Day Years [...] Support [facility] Vascular Access Center [address] [place] [address] 11/03/2024 12:30 PM EDT Scheduled Only [facility] Vascular Access Center [address] [place] [address] documented as of this encounter Visit Diagnoses Not on filedocumented in this encounter Care Teams Glassware Defect Repairer Relationship Specialty Start Date End Date Marita Wetzel DO [address] [place] [address] PCP - General Family Medicine 11/14/22 documented as of this encounter
--- OUTSIDE RECORDS SUMMARY | 2024-08-31 14:38 | XMS_ITS | Encounter Summary ---
Author Organization [facility] Address [address] [place] [address] Phone Care Team Providers Care Senior Product Engineer Name Role Phone Marita Wetzel DO Primary Care Provider Unava ilable Encounter Details Date Type Department Care Team (Late st Contact Info) Description 01/01/2024 Documentation Only [facility] [address] [place] [address] Hendrix, [place], [place] [address] [place] [address] Social History Tobacco Use Types Packs/Day Years [...] [facility] Vascular Access Center [address] [place] [phone] 11/03/2024 12:30 PM EDT Scheduled Only [facility] Vascular Access [place] [address] [place] [address] documented as of this encounter Visit Diagnoses Not on filedocumented in this encounter Care Teams Senior Product Engineer Relationship Specialty Start Date End Date Marita Wetzel DO [address] [place] [address] PCP - General Family Medicine 11/14/22 documented as of this encounter
--- OUTSIDE RECORDS SUMMARY | 2024-08-31 14:38 | XMS_ITS | Encounter Summary ---
Author Organization [facility] Address [address] [place] [address] Care Team Providers Care Biomedical Field Service Engineer Name Role Phone Marita Wetzel Primary Care Provider +1- [phone] Encounter Details Date Type Department Care Team (Late st Contact Info) Description 04/17/[address] [facility] - Main Lab [address] [facility] [place] [address] Catalina Burr MD [address] [place] [address] End stage renal disease (CMS/HCC V24, CMS/HCC [...] developed and the performance characteristics determined by [facility]. This confirmation testing has not been cleared or approved by the FDA. The laboratory is regulated under CLIA as qualified to perform high-complexity testing. This test is used for patient testing purposes. It should not be regarded as investigational or for research. Test performed at [facility], [address] [place], [place] ??[address] ? [phone] Ashtyn Leigh MD, PhD - Global Regulatory Lead Blood Venous blood specimen / Unknown Venipuncture / Unknown 04/17/2024 5:33 AM EST 04/17/2024 9:33 AM EST us Catalina Burr MD LAB BLOOD ORDERABLES Final Resul t [facility] [address] [place] [address] * (ABNORMAL) Reticulocyte count (04/17/2024 5:33 AM EST) Retic Ct Abs 0.050 0.030 - 0.090 M/mcL LAB HEMETOLOGY METHOD 04/17/2024 10:[address] [facility] Retic Ct Pct 1.8(H) 0.7 - 1.7 % LAB HEMETOLOGY METHOD 04/17/2024 10:42 AM [facility] Immature Retic Fract 24.7(H) 2.3 - 15.9 % LAB HEMETOLOGY METHOD 04/17/2024 10:42 AM [facility] Reticulocyte Hemoglobin 28.3(L) >29.0 pcg LAB HEMETOLOGY METHOD 04/17/2024 10:42 AM [facility] Blood Venous blood specimen / Unknown Venipuncture / Unknown 04/17/2024 5:33 AM EST 04/17/2024 9:33 AM EST us Catalina Burr MD LAB BLOOD ORDERABLES Final Resul t [facility] [address] [place] [address], [place] [phone] * (ABNORMAL) Comprehensive metabolic panel (04/17/2024 5:33 AM EST) Sodium 146(H) 133 - 145 mmol/L LAB CHEMISTRY METHOD 04/17/2024 11:02 AM [facility] Potassium 3.4(L) 3.5 - 5.5 mmol/L LAB CHEMISTRY METHOD 04/17/2024 11:02 AM [facility] Chloride 116(H) 96 - 110 mmol/L LAB CHEMISTRY METHOD 04/17/2024 11:02 AM [facility] CO2 21 21 - 32 mmol/L LAB CHEMISTRY METHOD 04/17/2024 11:02 AM [facility] Anion Gap 9 3 - 11 LAB CHEMISTRY METHOD 04/17/2024 11:02 AM [facility] Glucose 61(L) 70 - 100 mg/dL LAB CHEMISTRY METHOD 04/17/2024 11:02 AM [facility] BUN 48(H) 5 - 25 mg/dL LAB CHEMISTRY METHOD 04/17/2024 11:02 AM [facility] Creatinine 3.71(H) 0.50 - 1.10 mg/dL LAB CHEMISTRY METHOD 04/17/2024 11:02 AM [facility] eGFR 13(L) >=60 mL/min/1. 73m2 LAB CHEMISTRY METHOD 04/17/2024 11:02 AM [facility] Comment:Calculation based on the??Chronic Kidney Disease Epidemiology Collaboration (CKD-EPI) equation refit??without adjustment for race. BUN/Creatinine Ratio 12.9 LAB CHEMISTRY METHOD 04/17/2024 11:02 AM [facility] Calcium 8.7 8.5 - 10.5 mg/dL LAB CHEMISTRY METHOD 04/17/2024 11:02 AM [facility] AST (SGOT) 8(L) 10 - 42 unit/L LAB CHEMISTRY METHOD 04/17/2024 11:02 AM [facility] ALT (SGPT) 9(L) 10 - 60 unit/L LAB CHEMISTRY METHOD 04/17/2024 11:02 AM [facility] Alkaline Phosphatase 61 42 - 121 unit/L LAB CHEMISTRY METHOD 04/17/2024 11:02 AM [facility] Total Protein 5.6(L) 6.0 - 8.0 g/dL LAB CHEMISTRY METHOD 04/17/2024 11:02 AM [facility] Albumin 2.0(L) 3.2 - 5.0 g/dL LAB CHEMISTRY METHOD 04/17/2024 11:02 AM [facility] Total Bilirubin 0.5 0.0 - 1.4 mg/dL LAB CHEMISTRY METHOD 04/17/2024 11:02 AM [facility] Blood Venous blood specimen / Unknown Venipuncture / Unknown 04/17/2024 5:33 AM EST 04/17/2024 9:33 AM EST Catalina Burr MD LAB BLOOD ORDERABLES Final Resul t [facility] [address] [place] [address], * (ABNORMAL) Complete blood count (04/17/2024 5:33 AM EST) WBC 9.3 4.8 - 10.8 K/mcL LAB HEMETOLOGY METHOD 04/17/2024 10:42 AM [facility] RBC 3.10(L) 3.80 - 4.80 M/mcL LAB HEMETOLOGY METHOD 04/17/2024 10:42 AM [facility] Hemoglobin 8.3(L) 11.5 - 16.0 g/dL LAB HEMETOLOGY METHOD 04/17/2024 10:42 AM [facility] Hematocrit 30.3(L) 35.0 - 47.0 % LAB HEMETOLOGY METHOD 04/17/2024 10:42 AM [facility] MCV 98.1(H) 79.0 - 98.0 FL LAB HEMETOLOGY METHOD 04/17/2024 10:42 AM [facility] MCH 26.9(L) 27.0 - 32.0 pcg LAB HEMETOLOGY METHOD 04/17/2024 10:[address] [facility] MCHC 27.4(L) 32.0 - 37.0 g/dL LAB HEMETOLOGY METHOD 04/17/2024 10:42 AM [facility] RDW 16.9(H) 11.0 - 15.0 % LAB HEMETOLOGY METHOD 04/17/2024 10:42 AM [facility] Platelets 206 130 - 400 K/mcL LAB HEMETOLOGY METHOD 04/17/2024 10:42 AM [facility] MPV 10.1 7.0 - 11.0 FL LAB HEMETOLOGY METHOD 04/17/2024 10:42 AM [facility] NRBC 0.0 <1.0 % LAB HEMETOLOGY METHOD 04/17/2024 10:42 AM [facility] NRBC Absolute 0.00 <0.10 K/mcL LAB HEMETOLOGY METHOD 04/17/2024 10:42 AM [facility] Blood Venous blood specimen / Unknown Venipuncture / Unknown 04/17/2024 5:33 AM EST 04/17/2024 9:33 AM EST us Catalian Burr MD LAB BLOOD ORDERABLES Final Resul t [facility] [address] [place] [address], [place] [phone] documented in this encounter Visit Diagnoses Diagnosis End stage renal disease (CMS/HCC V24, CMS/HCC V28) End stage renal disease Anemia, unspecified documented in this encounter Care Teams Biomedical Field Service Engineer Relationship Specialty Start Date End Date Marita Wetzel DO [address] [place] [address] PCP - General 01/09/23 documented as of this encounter
--- OUTSIDE RECORDS SUMMARY | 2024-08-31 14:38 | XMS_ITS | Encounter Summary ---
Author Organization [facility] Address [address] [place] [address] Care Team Providers Care Railway Signal Technician Name Role Phone Mary JaneMarita yousif Primary Care Provider +1- [phone] Encounter Details Date Type Department Care Team (Late st Contact Info) Description 02/24/2024 Lab Requisition [facility] - Main Lab 299 [facility] [place] [address] Norbert Lopez MD [address] [facility] [address] [facility] [address] Encounter for other specified prophylactic [...] Travel phlebotomy fee (02/24/2024 12:45 PM EST) [facility] HOME TRAVEL PHLEBOTOMY FEE Completed 02/24/2024 2:01 PM EST [facility] Blood Venous blood specimen / Unknown Venipuncture / Unknown 02/24/2024 12:45 PM EST 02/24/2024 1:29 PM EST Norbert Lopez MD LAB BLOOD ORDERABLES Final Resul t Performing Organization Address [facility] Co de Phone Number [facility] [address] [place] [address], [place] [phone] * (ABNORMAL) Heparin and low molecular weight anti Xa level (02/24/2024 12:45 PM EST) [facility] Heparin Anti-Xa 0.28(L) 0.30 - 0.70 I Unit/mL LAB COAGULATION METHOD 02/24/2024 2:02 PM EST [facility] Blood Venous blood specimen / Unknown Venipuncture / Unknown 02/24/2024 12:45 PM EST 02/24/2024 1:29 PM EST Narrative [facility] - 02/24/2024 2:02 PM EST Therapeutic range listed is for Unfractionated Heparin. LMW Heparin therapeutic range: 0.50-1.20 IU/mL Norbert Lopez MD LAB BLOOD ORDERABLES Final Resul t Performing Organization Address City/[facility]/ZIP Co de Phone Number [facility] [address] [place] [address], [place] [phone] * (ABNORMAL) Basic metabolic panel (02/24/2024 12:45 PM EST) [facility] Sodium 137 133 - 145 mmol/L LAB CHEMISTRY METHOD 02/24/2024 3:10 PM [facility] Potassium 3.7 3.5 - 5.5 mmol/L LAB CHEMISTRY METHOD 02/24/2024 3:10 PM [facility] Chloride 104 96 - 110 mmol/L LAB CHEMISTRY METHOD 02/24/2024 3:10 PM [facility] CO2 22 21 - 32 mmol/L LAB CHEMISTRY METHOD 02/24/2024 3:10 PM [facility] Anion Gap 11 3 - 11 LAB CHEMISTRY METHOD 02/24/2024 3:10 PM [facility] Glucose 163(H) 70 - 100 mg/dL LAB CHEMISTRY METHOD 02/24/2024 3:10 PM [facility] BUN 33(H) 5 - 25 mg/dL LAB CHEMISTRY METHOD 02/24/2024 3:10 PM [facility] Creatinine 3.25(H) 0.50 - 1.10 mg/dL LAB CHEMISTRY METHOD 02/24/2024 3:10 PM [facility] eGFR 15(L) >=60 mL/min/1. 73m2 LAB CHEMISTRY METHOD 02/24/2024 3:10 PM [facility] Comment:Calculation based on the??Chronic Kidney Disease Epidemiology Collaboration (CKD-EPI) equation refit??without adjustment for race. BUN/Creatinine Ratio 10.2 LAB CHEMISTRY METHOD 02/24/2024 3:10 PM [facility] Calcium 9.4 8.5 - 10.5 mg/dL LAB CHEMISTRY METHOD 02/24/2024 3:10 PM [facility] Blood Venous blood specimen / Unknown Venipuncture / Unknown 02/24/2024 12:45 PM EST 02/24/2024 1:29 PM EST us Norbert Lopez MD LAB BLOOD ORDERABLES Final Resul t [facility] [address] [place] [address], * (ABNORMAL) Complete blood count (02/24/2024 12:45 PM EST) [facility] WBC 11.3(H) 4.8 - 10.8 K/mcL LAB HEMETOLOGY METHOD 02/24/2024 1:38 PM [facility] RBC 3.30(L) 3.80 - 4.80 M/mcL LAB HEMETOLOGY METHOD 02/24/2024 1:38 PM [facility] Hemoglobin 9.2(L) 11.5 - 16.0 g/dL LAB HEMETOLOGY METHOD 02/24/2024 1:38 PM [facility] Hematocrit 31.3(L) 35.0 - 47.0 % LAB HEMETOLOGY METHOD 02/24/2024 1:38 PM [facility] MCV 95.4 79.0 - 98.0 FL LAB HEMETOLOGY METHOD 02/24/2024 1:38 PM [facility] MCH 28.0 27.0 - 32.0 pcg LAB HEMETOLOGY METHOD 02/24/2024 1:38 PM [facility] MCHC 29.4(L) 32.0 - 37.0 g/dL LAB HEMETOLOGY METHOD 02/24/2024 1:38 PM [facility] RDW 16.6(H) 11.0 - 15.0 % LAB HEMETOLOGY METHOD 02/24/2024 1:38 PM [facility] Platelets 278 130 - 400 K/mcL LAB HEMETOLOGY METHOD 02/24/2024 1:38 PM [facility] MPV 10.7 7.0 - 11.0 FL LAB HEMETOLOGY METHOD 02/24/2024 1:38 PM [facility] NRBC 0.0 <1.0 % LAB HEMETOLOGY METHOD 02/24/2024 1:38 PM EST [facility] NRBC Absolute 0.00 <0.10 K/mcL LAB HEMETOLOGY METHOD 02/24/2024 1:38 PM EST [facility] Blood Venous blood specimen / Unknown Venipuncture / Unknown 02/24/2024 12:45 PM EST 02/24/2024 1:29 PM EST us Norbert Lopez MD LAB BLOOD ORDERABLES Final Resul t [facility] [address] [place] [address], documented in this encounter Visit Diagnoses Diagnosis Encounter for other specified prophylactic measures Acute kidney failure, unspecified (CMS/HCC V24) Acute kidney failure, unspecified documented in this encounter Care Teams Railway Signal Technician Relationship Specialty Start Date End Date Marita Wetzel DO [address] [place] [address] PCP - General 01/09/23 documented as of this encounter
--- OUTSIDE RECORDS SUMMARY | 2024-08-31 14:38 | XMS_ITS | Encounter Summary ---
Author Organization [facility] Address [address] [place] [address] Care Team Providers Care Supervisor Throwing Department Name Role Phone Marita Wetzel DO Primary Care Provider +1- [phone] Encounter Details Date Type Department Care Team (Late st Contact Info) Description 04/10/[address] [facility] - Main Lab 299 [facility] [place] [phone] Marily Gordillo MD [address] [place] [phone] Chronic embolism and thrombosis of unspecified vein; [...] documented in this encounter Care Teams Supervisor Throwing Department Relationship Specialty Start Date End Date Marita Wetzel DO [address] [place], [place] PCP - General 01/09/23 documented as of this encounter
--- OUTSIDE RECORDS SUMMARY | 2024-08-31 14:38 | XMS_ITS | Encounter Summary ---
Author Organization [facility] Address [address] [place] [address] Care Team Providers Care Game Show Host Name Role Phone Marita Wetzel Primary Care Provider +1- [phone] Encounter Details Date Type Department Care Team (Late st Contact Info) Description 04/02/2024 Lab Requisition [facility] - Main Lab 299 [facility] [place] [phone] Marily Gordillo MD [address] [place] [address] Chronic embolism and thrombosis of [...] [facility], [address], [place], [place] ??[address] ? [phone] Ashtyn Leigh MD, PhD - Baked Goods Stock Clerk Blood Venous blood specimen / Unknown Venipuncture / Unknown 04/05/2024 6:56 AM EST 04/05/2024 10:25 AM EST us Marily Gordillo MD LAB BLOOD ORDERABLES Final Resul t [place] [address] * (ABNORMAL) Renal function panel (04/05/2024 6:56 AM EST) Sodium 138 133 - 145 mmol/L LAB CHEMISTRY METHOD 04/05/2024 11:52 AM [facility] Potassium 5.0 3.5 - 5.5 mmol/L LAB CHEMISTRY METHOD 04/05/2024 11:52 AM [facility] Chloride 107 96 - 110 mmol/L LAB CHEMISTRY METHOD 04/05/2024 11:52 AM [facility] CO2 20(L) 21 - 32 mmol/L LAB CHEMISTRY METHOD 04/05/2024 11:52 AM [facility] Anion Gap 11 3 - 11 LAB CHEMISTRY METHOD 04/05/2024 11:52 AM [facility] Glucose 104(H) 70 - 100 mg/dL LAB CHEMISTRY METHOD 04/05/2024 11:52 AM [facility] BUN 56(H) 5 - 25 mg/dL LAB CHEMISTRY METHOD 04/05/2024 11:52 AM [facility] Creatinine 4.43(H) 0.50 - 1.10 mg/dL LAB CHEMISTRY METHOD 04/05/2024 11:52 AM [facility] eGFR 11(L) >=60 mL/min/1. 73m2 LAB CHEMISTRY METHOD 04/05/2024 11:52 AM [facility] Comment:Calculation based on the??Chronic Kidney Disease Epidemiology Collaboration (CKD-EPI) equation refit??without adjustment for race. BUN/Creatinine Ratio 12.6 LAB CHEMISTRY METHOD 04/05/2024 11:52 AM [facility] Albumin 1.9(L) 3.2 - 5.0 g/dL LAB CHEMISTRY METHOD 04/05/2024 11:[address] [facility] Calcium 9.0 8.5 - 10.5 mg/dL LAB CHEMISTRY METHOD 04/05/2024 11:52 AM [facility] Phosphorus 3.1 2.5 - 4.5 mg/dL LAB CHEMISTRY METHOD 04/05/2024 11:52 AM [facility] Blood Venous blood specimen / Unknown Venipuncture / Unknown 04/05/2024 6:56 AM EST 04/05/2024 10:21 AM EST Marily Gordillo MD LAB BLOOD ORDERABLES Final Resul t [facility] [address] [place] [address], * (ABNORMAL) Complete blood count (04/05/2024 6:56 AM EST) WBC 9.2 4.8 - 10.8 K/mcL LAB HEMETOLOGY METHOD 04/05/2024 10:42 AM [facility] RBC 2.50(L) 3.80 - 4.80 M/mcL LAB HEMETOLOGY METHOD 04/05/2024 10:42 AM [facility] Hemoglobin 6.8(L) 11.5 - 16.0 g/dL LAB HEMETOLOGY METHOD 04/05/2024 10:42 AM [facility] Hematocrit 24.8(L) 35.0 - 47.0 % LAB HEMETOLOGY METHOD 04/05/2024 10:42 AM [facility] MCV 99.6(H) 79.0 - 98.0 FL LAB HEMETOLOGY METHOD 04/05/2024 10:42 AM [facility] MCH 27.3 27.0 - 32.0 pcg LAB HEMETOLOGY METHOD 04/05/2024 10:[address] [facility] MCHC 27.4(L) 32.0 - 37.0 g/dL LAB HEMETOLOGY METHOD 04/05/2024 10:42 AM [facility] RDW 16.7(H) 11.0 - 15.0 % LAB HEMETOLOGY METHOD 04/05/2024 10:42 AM [facility] Platelets 332 130 - 400 K/mcL LAB HEMETOLOGY METHOD 04/05/2024 10:42 AM [facility] MPV 10.2 7.0 - 11.0 FL LAB HEMETOLOGY METHOD 04/05/2024 10:42 AM [facility] NRBC 0.0 <1.0 % LAB HEMETOLOGY METHOD 04/05/2024 10:42 AM [facility] NRBC Absolute 0.00 <0.10 K/mcL LAB HEMETOLOGY METHOD 04/05/2024 10:42 AM [facility] Blood Venous blood specimen / Unknown Venipuncture / Unknown 04/05/2024 6:56 AM EST 04/05/2024 10:26 AM EST us Marily Gordillo MD LAB BLOOD ORDERABLES Final Resul t [facility] [address] [place] [address], documented in this encounter Visit Diagnoses Diagnosis Chronic embolism and thrombosis of unspecified vein Acute kidney failure, unspecified (CMS/HCC V24) Acute kidney failure, unspecified documented in this encounter Care Teams Game Show Host Relationship Specialty Start Date End Date Marita Wetzel DO [address] [place] [address] PCP - General 01/09/23 documented as of this encounter
--- OUTSIDE RECORDS SUMMARY | 2024-08-31 14:38 | XMS_ITS | Encounter Summary ---
Author Organization [facility] Address [address] [place] [address] Care Team Providers Care Contracting Executive Name Role Phone Marita Wetzel Primary Care Provider +1- [phone] Encounter Details Date Type Department Care Team (Late st Contact Info) Description 03/30/2024 Lab Requisition [facility] - Main Lab 299 [facility] [place] [address] Catalina Burr MD [address] [place] [address] Chronic embolism and thrombosis of unspecified vein; [...] LAB CHEMISTRY METHOD 03/31/2024 12:06 PM EST [facility] Blood Venous blood specimen / Unknown Venipuncture / Unknown 03/31/2024 9:23 AM EST 03/31/2024 11:25 AM EST Catalina Burr MD LAB BLOOD ORDERABLES Final Resul t Performing Organization Address [facility]/ZIP Co de Phone Number [facility] [address] [place] [address], [place] [phone] * (ABNORMAL) Ferritin (03/31/2024 9:23 AM EST) Ferritin 6,203(H) 8 - 252 ng/mL LAB CHEMISTRY METHOD 03/31/2024 12:[address] [facility] Blood Venous blood specimen / Unknown Venipuncture / Unknown 03/31/2024 9:23 AM EST 03/31/2024 11:25 AM EST Catalina Burr MD LAB BLOOD ORDERABLES Final Resul t Performing Organization Address [facility]/ZIP Co de Phone Number [facility] [address] [place] [address], [place] [phone] documented in this encounter Visit Diagnoses Diagnosis Chronic embolism and thrombosis of unspecified vein Acute kidney failure, unspecified (CMS/HCC V24) Acute kidney failure, unspecified documented in this encounter Care Teams Contracting Executive Relationship Specialty Start Date End Date Marita Wetzel DO [address] [place] [address] PCP - General 01/09/23 documented as of this encounter
--- OUTSIDE RECORDS SUMMARY | 2024-08-31 14:38 | XMS_ITS | Encounter Summary ---
Author Organization [facility] Address [address] [place] [address] Care Team Providers Care Road Mechanic Name Role Phone Mary JaneMarita yousif Primary Care Provider +1- [phone] Encounter Details Date Type Department Care Team (Late st Contact Info) Description 03/05/2024 Lab Requisition [facility] - Main Lab 299 [facility] [place] [address] Catalina Burr MD [address] [place] [address] Chronic embolism and thrombosis of unspecified vein; [...] Test performed at [facility], [address], [place], [place] ??[address] ? [phone] Ashtyn Leigh MD, PhD - Trenching Machine Operator Blood Venous blood specimen / Unknown Venipuncture / Unknown 03/08/2024 6:29 AM EST 03/08/2024 7:46 AM EST us Catalina Burr MD LAB BLOOD ORDERABLES Final Resul t [facility] [address] [place] [address] * (ABNORMAL) Renal function panel (03/08/2024 6:29 AM EST) Sodium 139 133 - 145 mmol/L LAB CHEMISTRY METHOD 03/08/2024 8:58 AM [facility] Potassium 4.5 3.5 - 5.5 mmol/L LAB CHEMISTRY METHOD 03/08/2024 8:58 AM [facility] Chloride 108 96 - 110 mmol/L LAB CHEMISTRY METHOD 03/08/2024 8:58 AM [facility] CO2 20(L) 21 - 32 mmol/L LAB CHEMISTRY METHOD 03/08/2024 8:58 AM [facility] Anion Gap 11 3 - 11 LAB CHEMISTRY METHOD 03/08/2024 8:58 AM [facility] Glucose 93 70 - 100 mg/dL LAB CHEMISTRY METHOD 03/08/2024 8:58 AM [facility] BUN 35(H) 5 - 25 mg/dL LAB CHEMISTRY METHOD 03/08/2024 8:58 AM [facility] Creatinine 3.99(H) 0.50 - 1.10 mg/dL LAB CHEMISTRY METHOD 03/08/2024 8:58 AM [facility] eGFR 12(L) >=60 mL/min/1. 73m2 LAB CHEMISTRY METHOD 03/08/2024 8:58 AM [facility] Comment:Calculation based on the??Chronic Kidney Disease Epidemiology Collaboration (CKD-EPI) equation refit??without adjustment for race. BUN/Creatinine Ratio 8.8 LAB CHEMISTRY METHOD 03/08/2024 8:[address] [facility] Albumin 2.3(L) 3.2 - 5.0 g/dL LAB CHEMISTRY METHOD 03/08/2024 8:58 AM [facility] Calcium 9.0 8.5 - 10.5 mg/dL LAB CHEMISTRY METHOD 03/08/2024 8:58 AM [facility] Phosphorus 3.2 2.5 - 4.5 mg/dL LAB CHEMISTRY METHOD 03/08/2024 8:58 AM [facility] Blood Venous blood specimen / Unknown Venipuncture / Unknown 03/08/2024 6:29 AM EST 03/08/2024 7:46 AM EST us Catalina Burr MD LAB BLOOD ORDERABLES Final Resul t [facility] [address] [place] [address], [place] [phone] * (ABNORMAL) Complete blood count (03/08/2024 6:29 AM EST) WBC 9.8 4.8 - 10.8 K/mcL LAB HEMETOLOGY METHOD 03/08/2024 8:10 AM [facility] RBC 2.90(L) 3.80 - 4.80 M/[facility] LAB HEMETOLOGY METHOD 03/08/2024 8:10 AM [facility] Hemoglobin 7.9(L) 11.5 - 16.0 g/dL LAB HEMETOLOGY METHOD 03/08/2024 8:10 AM [facility] Hematocrit 28.5(L) 35.0 - 47.0 % LAB HEMETOLOGY METHOD 03/08/2024 8:10 AM [facility] MCV 99.3(H) 79.0 - 98.0 FL LAB HEMETOLOGY METHOD 03/08/2024 8:[address] [facility] MCH 27.5 27.0 - 32.0 pcg LAB HEMETOLOGY METHOD 03/08/2024 8:[address] [facility] MCHC 27.7(L) 32.0 - 37.0 g/dL LAB HEMETOLOGY METHOD 03/08/2024 8:[address] [facility] RDW 17.2(H) 11.0 - 15.0 % LAB HEMETOLOGY METHOD 03/08/2024 8:[address] [facility] Platelets 299 130 - 400 K/mcL LAB HEMETOLOGY METHOD 03/08/2024 8:[address] [facility] MPV 11.5(H) 7.0 - 11.0 FL LAB HEMETOLOGY METHOD 03/08/2024 8:[address] [facility] NRBC 0.0 <1.0 % LAB HEMETOLOGY METHOD 03/08/2024 8:[address] [facility] NRBC Absolute 0.00 <0.10 K/mcL LAB HEMETOLOGY METHOD 03/08/2024 8:[address] [facility] Blood Venous blood specimen / Unknown Venipuncture / Unknown 03/08/2024 6:29 AM EST 03/08/2024 7:46 AM EST us Catalina Burr MD LAB BLOOD ORDERABLES Final Resul t [facility] [address] [place] [address], documented in this encounter Visit Diagnoses Diagnosis Chronic embolism and thrombosis of unspecified vein Acute kidney failure, unspecified (CMS/HCC V24) Acute kidney failure, unspecified Type 2 diabetes mellitus without complications (CMS/HCC V24, CMS/HCC V28) documented in this encounter Care Teams Road Mechanic Relationship Specialty Start Date End Date Marita Wetzel DO [address] [place], [place] PCP - General 01/09/23 documented as of this encounter
--- OUTSIDE RECORDS SUMMARY | 2024-08-31 14:38 | XMS_ITS | Encounter Summary ---
Author Organization [facility] Address [address] [place] [address] Care Team Providers Care Spanish Lecturer Name Role Phone Marita Wetzel Primary Care Provider +1- [phone] Encounter Details Date Type Department Care Team (Late st Contact Info) Description 04/17/2024 Lab Requisition [facility] - Main Lab [address] [facility] [place] [phone] Marily Gordillo MD [address] [place] [address] Chronic embolism and thrombosis of [...] performed at [facility], [facility] [address], [place], [place] ??[address] ? [phone] Ashtyn Leigh MD, PhD - Music Executive Blood Venous blood specimen / Unknown Venipuncture / Unknown 04/19/2024 6:21 AM EST 04/19/2024 8:33 AM EST us Marily Gordillo MD LAB BLOOD ORDERABLES Final Resul t [place] [address] * (ABNORMAL) Renal function panel (04/19/2024 6:21 AM EST) Sodium 144 133 - 145 mmol/L LAB CHEMISTRY METHOD 04/19/2024 9:[address] [facility] Potassium 3.3(L) 3.5 - 5.5 mmol/L LAB CHEMISTRY METHOD 04/19/2024 9:[address] [facility] Chloride 114(H) 96 - 110 mmol/L LAB CHEMISTRY METHOD 04/19/2024 9:[address] [facility] CO2 22 21 - 32 mmol/L LAB CHEMISTRY METHOD 04/19/2024 9:[address] [facility] Anion Gap 8 3 - 11 LAB CHEMISTRY METHOD 04/19/2024 9:[address] [facility] Glucose 177(H) 70 - 100 mg/dL LAB CHEMISTRY METHOD 04/19/2024 9:[address] [facility] BUN 42(H) 5 - 25 mg/dL LAB CHEMISTRY METHOD 04/19/2024 9:[address] [facility] Creatinine 3.65(H) 0.50 - 1.10 mg/dL LAB CHEMISTRY METHOD 04/19/2024 9:[address] [facility] eGFR 13(L) >=60 mL/min/1. 73m2 LAB CHEMISTRY METHOD 04/19/2024 9:[address] [facility] Comment:Calculation based on the??Chronic Kidney Disease Epidemiology Collaboration (CKD-EPI) equation refit??without adjustment for race. BUN/Creatinine Ratio 11.5 LAB CHEMISTRY METHOD 04/19/2024 9:[address] [facility] Albumin 2.0(L) 3.2 - 5.0 g/dL LAB CHEMISTRY METHOD 04/19/2024 9:42 AM EST [facility] Calcium 8.5 8.5 - 10.5 mg/dL LAB CHEMISTRY METHOD 04/19/2024 9:[address] [facility] Phosphorus 2.6 2.5 - 4.5 mg/dL LAB CHEMISTRY METHOD 04/19/2024 9:[address] [facility] Blood Venous blood specimen / Unknown Venipuncture / Unknown 04/19/2024 6:21 AM EST 04/19/2024 8:33 AM EST Marily Gordillo MD LAB BLOOD ORDERABLES Final Resul t [facility] [address] [place] [address], * (ABNORMAL) Complete blood count (04/19/2024 6:21 AM EST) WBC 12.0(H) 4.8 - 10.8 K/mcL LAB HEMETOLOGY METHOD 04/19/2024 9:[address] [facility] RBC 2.80(L) 3.80 - 4.80 M/mcL LAB HEMETOLOGY METHOD 04/19/2024 9:[address] [facility] Hemoglobin 7.6(L) 11.5 - 16.0 g/dL LAB HEMETOLOGY METHOD 04/19/2024 9:[address] [facility] Hematocrit 27.3(L) 35.0 - 47.0 % LAB HEMETOLOGY METHOD 04/19/2024 9:[address] [facility] MCV 98.2(H) 79.0 - 98.0 FL LAB HEMETOLOGY METHOD 04/19/2024 9:[address] [facility] MCH 27.3 27.0 - 32.0 pcg LAB HEMETOLOGY METHOD 04/19/2024 9:26 AM EST [facility] MCHC 27.8(L) 32.0 - 37.0 g/dL LAB HEMETOLOGY METHOD 04/19/2024 9:[address] [facility] RDW 16.6(H) 11.0 - 15.0 % LAB HEMETOLOGY METHOD 04/19/2024 9:[address] [facility] Platelets 230 130 - 400 K/mcL LAB HEMETOLOGY METHOD 04/19/2024 9:26 AM EST [facility] MPV 10.9 7.0 - 11.0 FL LAB HEMETOLOGY METHOD 04/19/2024 9:[address] [facility] NRBC 0.0 <1.0 % LAB HEMETOLOGY METHOD 04/19/2024 9:[address] [facility] NRBC Absolute 0.00 <0.10 K/mcL LAB HEMETOLOGY METHOD 04/19/2024 9:[address] [facility] Blood Venous blood specimen / Unknown Venipuncture / Unknown 04/19/2024 6:21 AM EST 04/19/2024 8:33 AM EST us Marily Gordillo MD LAB BLOOD ORDERABLES Final Resul t [facility] [address] [place] [address], documented in this encounter Visit Diagnoses Diagnosis Chronic embolism and thrombosis of unspecified vein Acute kidney failure, unspecified (CMS/HCC V24) Acute kidney failure, unspecified documented in this encounter Care Teams Spanish Lecturer Relationship Specialty Start Date End Date Marita Wetzel DO [address] [place] [address] PCP - General 01/09/23 documented as of this encounter
--- OUTSIDE RECORDS SUMMARY | 2024-08-31 14:38 | XMS_ITS | Encounter Summary ---
Author Organization [facility] Address [address] [place] [address] Care Team Providers Care Geothermal Operations Engineer Name Role Phone Marita Wetzel Primary Care Provider +1- [phone] Encounter Details Date Type Department Care Team (Late st Contact Info) Description 03/29/2024 Lab Requisition [facility] - Main Lab [address] [facility] [place] [address] Catalina Burr MD [address] [place] [address] End stage renal disease (CMS/HCC V24, CMS/HCC [...] 6:53 AM EST End stage renal disease (CMS/[facility]) documented in this encounter Results * Tacrolimus level (03/29/2024 6:53 AM EST) Tacrolimus Level 6.8 5.0 - 20.0 ng/mL 03/31/2024 12:22 PM EST [facility] Comment: Additional Information: Toxic Level ?> [...] [facility], [facility] [place], [place] ??[address] ? [phone] Ashtyn Leigh MD, PhD - Vinegar Maker Blood Venous blood specimen / Unknown Venipuncture / Unknown 03/29/2024 6:53 AM EST 03/29/2024 8:32 AM EST us Catalina Burr MD LAB BLOOD ORDERABLES Final Resul t [place] [address] * (ABNORMAL) Renal function panel (03/29/2024 6:53 AM EST) Sodium 140 133 - 145 mmol/L LAB CHEMISTRY METHOD 03/29/2024 10:[address] [facility] Potassium 3.9 3.5 - 5.5 mmol/L LAB CHEMISTRY METHOD 03/29/2024 10:[address] [facility] Chloride 109 96 - 110 mmol/L LAB CHEMISTRY METHOD 03/29/2024 10:[address] [facility] CO2 20(L) 21 - 32 mmol/L LAB CHEMISTRY METHOD 03/29/2024 10:[address] [facility] Anion Gap 11 3 - 11 LAB CHEMISTRY METHOD 03/29/2024 10:[address] [facility] Glucose 146(H) 70 - 100 mg/dL LAB CHEMISTRY METHOD 03/29/2024 10:[address] [facility] BUN 42(H) 5 - 25 mg/dL LAB CHEMISTRY METHOD 03/29/2024 10:[address] [facility] Creatinine 3.47(H) 0.50 - 1.10 mg/dL LAB CHEMISTRY METHOD 03/29/2024 10:[address] [facility] eGFR 14(L) >=60 mL/min/1. 73m2 LAB CHEMISTRY METHOD 03/29/2024 10:[address] [facility] Comment:Calculation based on the??Chronic Kidney Disease Epidemiology Collaboration (CKD-EPI) equation refit??without adjustment for race. BUN/Creatinine Ratio 12.1 LAB CHEMISTRY METHOD 03/29/2024 10:[address] [facility] Albumin 2.0(L) 3.2 - 5.0 g/dL LAB CHEMISTRY METHOD 03/29/2024 10:[address] [facility] Calcium 8.8 8.5 - 10.5 mg/dL LAB CHEMISTRY METHOD 03/29/2024 10:[address] [facility] Phosphorus 2.5 2.5 - 4.5 mg/dL LAB CHEMISTRY METHOD 03/29/2024 10:[address] [facility] Blood Venous blood specimen / Unknown Venipuncture / Unknown 03/29/2024 6:53 AM EST 03/29/2024 8:32 AM EST us Catalina Burr MD LAB BLOOD ORDERABLES Final Resul t [facility] [address] [place] [address], * (ABNORMAL) Complete blood count (03/29/2024 6:53 AM EST) WBC 11.0(H) 4.8 - 10.8 K/mcL LAB HEMETOLOGY METHOD 03/29/2024 9:[address] [facility] RBC 2.80(L) 3.80 - 4.80 M/[facility] LAB HEMETOLOGY METHOD 03/29/2024 9:[address] [facility] Hemoglobin 7.7(L) 11.5 - 16.0 g/dL LAB HEMETOLOGY METHOD 03/29/2024 9:[address] [facility] Hematocrit 27.0(L) 35.0 - 47.0 % LAB HEMETOLOGY METHOD 03/29/2024 9:[address] [facility] MCV 97.8 79.0 - 98.0 FL LAB HEMETOLOGY METHOD 03/29/2024 9:[address] [facility] MCH 27.9 27.0 - 32.0 pcg LAB HEMETOLOGY METHOD 03/29/2024 9:[address] [facility] MCHC 28.5(L) 32.0 - 37.0 g/dL LAB HEMETOLOGY METHOD 03/29/2024 9:[address] [facility] RDW 17.5(H) 11.0 - 15.0 % LAB HEMETOLOGY METHOD 03/29/2024 9:[address] [facility] Platelets 301 130 - 400 K/mcL LAB HEMETOLOGY METHOD 03/29/2024 9:[address] [facility] MPV 10.3 7.0 - 11.0 FL LAB HEMETOLOGY METHOD 03/29/2024 9:[address] [facility] NRBC 0.0 <1.0 % LAB HEMETOLOGY METHOD 03/29/2024 9:[address] [facility] NRBC Absolute 0.00 <0.10 K/mcL LAB HEMETOLOGY METHOD 03/29/2024 9:[address] [facility] Blood Venous blood specimen / Unknown Venipuncture / Unknown 03/29/2024 6:53 AM EST 03/29/2024 8:32 AM EST us Catalina Burr MD LAB BLOOD ORDERABLES Final Resul t [facility] [address] [place] [address], documented in this encounter Visit Diagnoses Diagnosis End stage renal disease (CMS/HCC V24, CMS/HCC V28) End stage renal disease documented in this encounter Care Teams Geothermal Operations Engineer Relationship Specialty Start Date End Date Marita Wetzel DO [address] [place] [address] PCP - General 01/09/23 documented as of this encounter
--- OUTSIDE RECORDS SUMMARY | 2024-08-31 14:38 | XMS_ITS | Clinical Summary ---
Author Organization [employer] Address [address] [place] [address] 7 [place] [address] Care Team Providers Care General Distillery Worker Name Role Phone Damari Marita Primary Care Provider +1 [phone] Allergies Active Allergy Reactions Criticality Noted Date Comments Codeine Hives High 11/12/2011 Other reaction(s): FAINTING/HIVES Oxycodone 07/30/2022 Oxycodone-Acetaminophen Hives High 10/05/2012 Other reaction(s): Nausea / Vomiting Medications * This document contains information received from the source organization and may not represent a complete record from that organization. Continuous Blood Gluc Hot Top Liner Helper (P[employer] Seema 2 Marshall) device 3 Active dorzolamide-awa lol (Cosopt) 22.3-6.8 [...] Blood Gluc Sensor (FreeStyle Seema 2 Sensor) [facility] Use as directed Active mycophenolate (Myfortic) 360 [...] mouth 4 times daily. 4 Active Procrit 05705 UNIT/ML injection 4 Active insulin glargine (Lantus [...] Department Care Team Description 08/24/2024 Orders Only [facility] External Provider, [facility] 08/20/2024 Telephone [facility] MEDICINE [address] [place] [address] Marita Wetzel, No Show 07/21/2024 Refill [facility] MEDICINE [address] [place] [address] Marita Wetzel, 07/19/[address] [address] Marita Wetzel, Results 07/06/[address] [place] [address] Marita Wetzel, Medication Question 07/01/2024 Orders Only GENERIC EXTERNAL DATA DEPARTMENT Provider, Generic External Data 06/25/[address] [place] [address] Marita Wetzel, Nurse Triage 06/25/[address] [place] [address] Marita Wetzel, Med Refill 06/22/[address] [place] [address] Marita Wetzel, Medication Question 06/17/[address] [address] Marita Wetzel, 06/11/2024 Patient Outreach [address] [address] Marita Wetzel, Transition Of Care (Tcm) (F unscheduled) 06/11/[address] [place] [address] Marita Wetzel, Hospital Follow-up from Last 3 Months Immunizations Name Administration [...] as directed Result Component No Carmen Becker, PharmSalvatore Note: Use CGM, ensuring sensor is [...] 1 VIEW Routine 06/04/2024 5:19 AM EST POCT GLYCATED HEMOGLOBIN, TOTAL Routine 12/09/2023 9:43 AM EDT Type 2 diabetes mellitus with stage 3b chronic kidney disease, without long-term current use of insulin ([facility]) LIPID PANEL, STANDARD Routine 10/06/2023 BI MAMMOGRAM [...] EDT Narrative 08/24/2024 12:03 PM EDT ? [facility] ?[address] ?[place] [address] ?XRay Report ? Signed ? Patient: West,Alix B ?MR#: [id number] ?? 43 ? : 1960 ?Acct:[id number] ? Age/Sex: 64 / F ?ADM Date: 05/06/25 ? Loc: HO.XRAY ? Attending Dr: KIM VILLANUEVA MD ? Ordering Physician: Kim Villanueva MD ?? Date of Service: 08/24/24 ?? Procedure(s): XR chest 2V ?? Accession Number(s): [id number] ? cc: Kim Villanueva MD; Marita Wetzel [...] unchanged. ?? Right-sided Port-A-Cath remains at the SVC. ?? Calcified plaque aortic arch. ?? Multilevel [...] DD/ 1139 ? TD/TT: 08/24/24 1149 ? Doughnut Machine Operator: ? Procedure Note Delvis Grant - 08/24/[address] [address] XRay Report Signed Patient: Alix Sharp BMR#: [id number] 43 : 1Acct:[id number] Age/Sex: 64 / FADM Date: 08/24/24 Loc: [facility] Attending Dr: KIM VILLANUEVA MD Ordering Physician: Kim Villanueva MD Date of Service: 08/24/24 Procedure(s): XR chest 2V Accession Number(s): [id number] cc: Kim Villanueva MD; Marita Wetzel DO EXAMINATION: XR CHEST CLINICAL INFORMATION: A43.9 - Nocardiosis, unspecified COMPARISON: July 07, 2024. TECHNIQUE: 2 views of the chest were obtained. FINDINGS: Meniscal shaped opacity right lower hemithorax. Pulmonary reticular pattern. Patchy opacities, right lung. No pneumothorax. Cardiomediastinal silhouette size is prominent, unchanged. Right-sided Port-A-Cath remains at the [facility]. Calcified plaque aortic arch. Multilevel mild thoracic [...] 08/24/24 1200 DD/ 1139 TD/TT: 08/24/24 1149 Doughnut Machine Operator: [facility] External Provider IMG XR PROCEDURES Final Result * XR Chest 1 View (06/04/2024 5:19 AM EST) Anatomical Region Laterality Modality Chest Radiographic Lily ging 06/04/2024 5:19 AM EST Narrative 06/04/2024 5:20 AM EST ? [facility] ?[address] ?[place] [address] ?XRay Report ? Signed ? Patient: West,Alix B ?MR#: [id number] ?? 43 ? : 1960 ?Acct:[id number] ? Age/Sex: 64 / F ?ADM Date: 02/07/25 ? Loc: HO.IMC ?477-1 ? Attending Dr: Malik Orozco MD ? Ordering Physician: Nirav Osborn MD ?? Date of Service: 06/03/24 ?? Procedure(s): XR chest 1V ?? Accession Number(s): [id number] ? cc: Marita Wetzel DO; Nirav Osborn [...] MD in OV> ?06/04/24 0520 ? DD/ 8 ? TD/TT: 06/04/24518 ? Doughnut Machine Operator: ? Procedure Note Juanita, Image - 06/04/2024 [place] [address] XRay Report Signed Patient: Alix Sharp BMR#: [id number] 43 : 1960cct:[id number] Age/Sex: 64 / FADM Date: 05/28/24 Loc: [facility] 477-[address]: Malik Orozco MD Ordering Physician: Nirav Osborn MD Date of Service: 06/03/24 Procedure(s): XR chest 1V Accession Number(s): [id number] cc: Marita Wetzel DO; Nirav Osborn MD [...] signed by Yoni Hobbs MD in OV> 06/04/24519 DD/ 8 TD/TT: 06/04/24518 Doughnut Machine Operator: [facility] External Provider IMG XR PROCEDURES Final Result * POCT HGB A1C (12/09/2023 9:43 AM EDT) Pathologist [facility] Hemoglobin A1C 5.9 4.0 - 6.0 % QC Media Lot # [id number] Lot# Expiration Date ,026 Blood 12/09/2023 9:43 AM EDT Marita Wetzel DO POINT OF CARE TEST ENTER/HUMBERTO T ORDERABLES Final Result * (ABNORMAL) Lipid Panel, Standard (10/06/2023) Pathologist [facility] Triglycerides 157 40 - 160 mg/dL Cholesterol [...] EDT Narrative 08/03/2023 8:29 PM EDT ? [facility] [place] ? [address] [facility] ?[place] [address] ? Mammography Report ? Signed ? Patient: West Batista,Alix F ?MR#: ?? [id number] ? : 1960 ?Acct:[id number] ? Age/Sex: 63 / F ?ADM Date: 03/28/24 ? Loc: HO.MAMMO ? Attending Philipp Wetzel DO ? Ordering Physician: Jurcsak,Marita A DO ?Results: 2B ?? enign Findings ? Date of Service: 07/17/23 ?Follow Up: 1 Year From Orig ?? inal Mammogram ? Procedure(s): MM tomosynthesis screening BI ?? Accession Number(s): [id number] ? cc: Marita Wetzel DO ? EXAMINATION: [...] 08/03/232024 ? DD/ 44 ? TD/TT: ? Doughnut Machine Operator: ? Procedure Note Donotuseinterpreter, Image - 08/03/2023 [facility] [address] [place] [address] Mammography Report Signed Patient: Alix Dennis FMR#: [id number] : 1Acct:[id number] Age/Sex: 63 / FADM Date: 07/17/23 Loc: HO.MAMMO Attending Dr: Marita Wetzel DO Ordering Physician: Marita Wetzelults: 2B enign Findings Date of Service: 07/17/23Follow Up: 1 Year From Orig inal Mammogram Procedure(s): MM tomosynthesis screening BI Accession Number(s): [id number] cc: Marita Wetzel DO EXAMINATION: MM SCREENING [...] Mai Gaffney MD in OV> 08/03/232024 DD/ 104 TD/TT: Doughnut Machine Operator: Marita Wetzel DO IMG BI PROCEDURES Edited Res ult - Final * Hm Pap Smear (08/12/2018) Pap Negative for intraephithelial lesion or malignancy Negative for intraephithelial lesion or malignancy, Other HPV Undetected Undetected, Indeterminate, Quantitative, Not Detected Historical Provider MD HEALTH MAINTENANCE Final Result from Last 3 Months or Most Recently Relevant to Health Maintenance Insurance MEDICARE [employer] Care Teams General Distillery Worker Relationship Specialty Start Date End Date Marita Wetzel DO [address] [place] [address] PCP - General Family Medicine 04/21/18 [facility] 05/22/24
--- OUTSIDE RECORDS SUMMARY | 2024-08-31 14:38 | XMS_ITS | Encounter Summary ---
Author Organization [facility] Address [address] [place] [address] Care Team Providers Care Tracer Bullet Charging Machine Operator Name Role Phone Marita Wetzel Primary Care Provider +1- [phone] Encounter Details Date Type Department Care Team (Late st Contact Info) Description 04/20/2024 Lab Requisition [facility] - Main Lab [address] [place] [phone] Marily Gordillo MD [address] [place] [address] Chronic kidney disease, unspecified; Anemia, [...] LAB CHEMISTRY METHOD 04/22/2024 11:50 AM EST [facility] Potassium 3.5 3.5 - 5.5 mmol/L LAB CHEMISTRY METHOD 04/22/2024 11:50 AM [facility] Chloride 112(H) 96 - 110 mmol/L LAB CHEMISTRY METHOD 04/22/2024 11:50 AM [facility] CO2 23 21 - 32 mmol/L LAB CHEMISTRY METHOD 04/22/2024 11:50 AM [facility] Anion Gap 8 3 - 11 LAB CHEMISTRY METHOD 04/22/2024 11:50 AM [facility] Glucose 135(H) 70 - 100 mg/dL LAB CHEMISTRY METHOD 04/22/2024 11:50 AM [facility] BUN 43(H) 5 - 25 mg/dL LAB CHEMISTRY METHOD 04/22/2024 11:50 AM [facility] Creatinine 3.79(H) 0.50 - 1.10 mg/dL LAB CHEMISTRY METHOD 04/22/2024 11:50 AM [facility] eGFR 13(L) >=60 mL/min/1. 73m2 LAB CHEMISTRY METHOD 04/22/2024 11:50 AM [facility] Comment:Calculation based on the??Chronic Kidney Disease Epidemiology Collaboration (CKD-EPI) equation refit??without adjustment for race. BUN/Creatinine Ratio 11.3 LAB CHEMISTRY METHOD 04/22/2024 11:50 AM [facility] Calcium 8.6 8.5 - 10.5 mg/dL LAB CHEMISTRY METHOD 04/22/2024 11:50 AM [facility] AST (SGOT) 9(L) 10 - 42 unit/L LAB CHEMISTRY METHOD 04/22/2024 11:50 AM [facility] ALT (SGPT) 9(L) 10 - 60 unit/L LAB CHEMISTRY METHOD 04/22/2024 11:50 AM [facility] Alkaline Phosphatase 59 42 - 121 unit/L LAB CHEMISTRY METHOD 04/22/2024 11:50 AM [facility] Total Protein 5.8(L) 6.0 - 8.0 g/dL LAB CHEMISTRY METHOD 04/22/2024 11:50 AM [facility] Albumin 2.0(L) 3.2 - 5.0 g/dL LAB CHEMISTRY METHOD 04/22/2024 11:50 AM [facility] Total Bilirubin 0.3 0.0 - 1.4 mg/dL LAB CHEMISTRY METHOD 04/22/2024 11:50 AM [facility] Blood Venous blood specimen / Unknown Venipuncture / Unknown 04/22/2024 7:09 AM EST 04/22/2024 9:42 AM EST Marily Gordillo MD LAB BLOOD ORDERABLES Final Resul t [facility] [address] [place] [address], * (ABNORMAL) Complete blood count (04/22/2024 7:09 AM EST) Pathologist [facility] WBC 8.2 4.8 - 10.8 K/mcL LAB HEMETOLOGY METHOD 04/22/2024 10:44 AM [facility] RBC 2.80(L) 3.80 - 4.80 M/mcL LAB HEMETOLOGY METHOD 04/22/2024 10:44 AM [facility] Hemoglobin 7.8(L) 11.5 - 16.0 g/dL LAB HEMETOLOGY METHOD 04/22/2024 10:44 AM [facility] Hematocrit 27.7(L) 35.0 - 47.0 % LAB HEMETOLOGY METHOD 04/22/2024 10:44 AM [facility] MCV 97.5 79.0 - 98.0 FL LAB HEMETOLOGY METHOD 04/22/2024 10:44 AM [facility] MCH 27.5 27.0 - 32.0 pcg LAB HEMETOLOGY METHOD 04/22/2024 10:44 AM EST [facility] MCHC 28.2(L) 32.0 - 37.0 g/dL LAB HEMETOLOGY METHOD 04/22/2024 10:44 AM [facility] RDW 16.5(H) 11.0 - 15.0 % LAB HEMETOLOGY METHOD 04/22/2024 10:44 AM [facility] Platelets 189 130 - 400 K/mcL LAB HEMETOLOGY METHOD 04/22/2024 10:44 AM [facility] MPV 10.7 7.0 - 11.0 FL LAB HEMETOLOGY METHOD 04/22/2024 10:44 AM [facility] NRBC 0.0 <1.0 % LAB HEMETOLOGY METHOD 04/22/2024 10:44 AM [facility] NRBC Absolute 0.00 <0.10 K/mcL LAB HEMETOLOGY METHOD 04/22/2024 10:44 AM [facility] Blood Venous blood specimen / Unknown Venipuncture / Unknown 04/22/2024 7:09 AM EST 04/22/2024 9:43 AM EST us Marily Gordillo MD LAB BLOOD ORDERABLES Final Resul t [facility] [address] [place] [address], documented in this encounter Visit Diagnoses Diagnosis Chronic kidney disease, unspecified Anemia, unspecified documented in this encounter Care Teams Tracer Bullet Charging Machine Operator Relationship Specialty Start Date End Date Marita Wetzel DO [address] [place] [address] PCP - General 01/09/23 documented as of this encounter
--- OUTSIDE RECORDS SUMMARY | 2024-08-31 14:38 | XMS_ITS | Encounter Summary ---
Author Organization [facility] Address [address] [place] [address] Care Team Providers Care Mechanical Engineering Coop Name Role Phone Marita Wetzel Primary Care Provider [phone]- [phone] Encounter Details Date Type Department Care Team (Late st Contact Info) Description 03/01/2024 Lab Requisition [facility] - Main Lab [address] [facility] [place] [address] Catalina Burr MD [address] [place], [place] [phone] End stage renal disease (CMS/HCC V24, CMS/HCC [...] (ABNORMAL) Ferritin (03/01/2024 6:56 AM EST) Pathologist [facility] Ferritin 2,736(H) 8 - 252 ng/mL LAB CHEMISTRY METHOD 03/01/2024 11:27 AM EST [facility] Blood Venous blood specimen / Unknown Venipuncture / Unknown 03/01/2024 6:56 AM EST 03/01/2024 9:07 AM EST Catalina Burr MD LAB BLOOD ORDERABLES Final Resul t Performing Organization Address City/[facility]/ZIP Co de Phone Number [facility] [address] [place] [address], [place] [phone] * (ABNORMAL) Iron (03/01/2024 6:56 AM EST) [facility] Iron 29(L) 40 - 150 mcg/dL LAB CHEMISTRY METHOD 03/01/2024 11:22 AM EST [facility] Blood Venous blood specimen / Unknown Venipuncture / Unknown 03/01/2024 6:56 AM EST 03/01/2024 9:07 AM EST us Catalina Burr MD LAB BLOOD ORDERABLES Final Resul t [facility] [address] [place] [address], [place] [phone] * Tacrolimus level (03/01/2024 6:56 AM EST) [facility] Tacrolimus Level 5.2 5.0 - 20.0 ng/mL 03/04/2024 12:28 PM EST [facility] Comment: Additional Information: Toxic Level ?> [...] at [facility], [address] [place], [place] ??[address] ? [phone] Ashtyn Leigh MD, PhD - Stopper Setter Blood Venous blood specimen / Unknown Venipuncture / Unknown 03/01/2024 6:56 AM EST 03/01/2024 9:07 AM EST us Catalina Burr MD LAB BLOOD ORDERABLES Final Resul t [place] [address] * (ABNORMAL) Renal function panel (03/01/2024 6:56 AM EST) Sodium 140 133 - 145 mmol/L LAB CHEMISTRY METHOD 03/01/2024 11:04 AM [facility] Potassium 3.4(L) 3.5 - 5.5 mmol/L LAB CHEMISTRY METHOD 03/01/2024 11:04 AM [facility] Chloride 107 96 - 110 mmol/L LAB CHEMISTRY METHOD 03/01/2024 11:04 AM [facility] CO2 24 21 - 32 mmol/L LAB CHEMISTRY METHOD 03/01/2024 11:04 AM [facility] Anion Gap 9 3 - 11 LAB CHEMISTRY METHOD 03/01/2024 11:04 AM [facility] Glucose 107(H) 70 - 100 mg/dL LAB CHEMISTRY METHOD 03/01/2024 11:04 AM [facility] BUN 26(H) 5 - 25 mg/dL LAB CHEMISTRY METHOD 03/01/2024 11:04 AM [facility] Creatinine 2.88(H) 0.50 - 1.10 mg/dL LAB CHEMISTRY METHOD 03/01/2024 11:04 AM [facility] eGFR 18(L) >=60 mL/min/1. 73m2 LAB CHEMISTRY METHOD 03/01/2024 11:04 AM [facility] Comment:Calculation based on the??Chronic Kidney Disease Epidemiology Collaboration (CKD-EPI) equation refit??without adjustment for race. BUN/Creatinine Ratio 9.0 LAB CHEMISTRY METHOD 03/01/2024 11:04 AM [facility] Albumin 2.3(L) 3.2 - 5.0 g/dL LAB CHEMISTRY METHOD 03/01/2024 11:04 AM [facility] Calcium 8.9 8.5 - 10.5 mg/dL LAB CHEMISTRY METHOD 03/01/2024 11:04 AM [facility] Phosphorus 1.9(L) 2.5 - 4.5 mg/dL LAB CHEMISTRY METHOD 03/01/2024 11:04 AM [facility] Blood Venous blood specimen / Unknown Venipuncture / Unknown 03/01/2024 6:56 AM EST 03/01/2024 9:07 AM EST us Catalina Burr MD LAB BLOOD ORDERABLES Final Resul t [facility] [address] [place] [address], [place] [phone] * (ABNORMAL) Complete blood count (03/01/2024 6:56 AM EST) WBC 10.2 4.8 - 10.8 K/mcL LAB HEMETOLOGY METHOD 03/01/2024 10:46 AM [facility] RBC 2.70(L) 3.80 - 4.80 M/mcL LAB HEMETOLOGY METHOD 03/01/2024 10:46 AM [facility] Hemoglobin 7.5(L) 11.5 - 16.0 g/dL LAB HEMETOLOGY METHOD 03/01/2024 10:46 AM [facility] Hematocrit 26.1(L) 35.0 - 47.0 % LAB HEMETOLOGY METHOD 03/01/2024 10:46 AM [facility] MCV 97.8 79.0 - 98.0 FL LAB HEMETOLOGY METHOD 03/01/2024 10:46 AM [facility] MCH 28.1 27.0 - 32.0 pcg LAB HEMETOLOGY METHOD 03/01/2024 10:46 AM [facility] MCHC 28.7(L) 32.0 - 37.0 g/dL LAB HEMETOLOGY METHOD 03/01/2024 10:46 AM EST [facility] RDW 16.7(H) 11.0 - 15.0 % LAB HEMETOLOGY METHOD 03/01/2024 10:46 AM [facility] Platelets 235 130 - 400 K/mcL LAB HEMETOLOGY METHOD 03/01/2024 10:46 AM [facility] MPV 10.8 7.0 - 11.0 FL LAB HEMETOLOGY METHOD 03/01/2024 10:46 AM [facility] NRBC 0.0 <1.0 % LAB HEMETOLOGY METHOD 03/01/2024 10:46 AM [facility] NRBC Absolute 0.00 <0.10 K/mcL LAB HEMETOLOGY METHOD 03/01/2024 10:46 AM [facility] Blood Venous blood specimen / Unknown Venipuncture / Unknown 03/01/2024 6:56 AM EST 03/01/2024 9:07 AM EST us Catalina Burr MD LAB BLOOD ORDERABLES Final Resul t [facility] [address] [place] [address], documented in this encounter Visit Diagnoses Diagnosis End stage renal disease (CMS/HCC V24, CMS/HCC V28) End stage renal disease Type 2 diabetes mellitus without complications (CMS/HCC V24, CMS/HCC V28) documented in this encounter Care Teams Mechanical Engineering Coop Relationship Specialty Start Date End Date Marita Wetzel DO [address] [place] [address] PCP - General 01/09/23 documented as of this encounter
--- OUTSIDE RECORDS SUMMARY | 2024-08-31 14:39 | XMS_ITS | Encounter Summary ---
Author Organization [facility], Address [address] [facility] [place] [address] Phone Care Team Providers Care Diathermy Equipment Repairer Name Role Phone Marita Wetzel DO Primary Care Provider Unava ilable Reason for Visit * Reason Comments Med Refill Encounter Details Date Type Department Care Team (Late Contact Info) Description 06/18/2024 Refill [facility] [address] [place] [address] Srinivas Agrawal MD [address] [facility] [place] [phone] Social History Tobacco Use Types Packs/Day Years [...] Support [facility] [address] [place] [phone] 11/03/2024 12:30 PM EDT Scheduled Only [facility] [address] [place] [phone] documented as of this encounter Procedures Procedure Name Priority Date/Time Associated Diagnosis Comments HD KINETICS Routine 06/18/2024 POST CHEMISTRY Routine 06/18/2024 IMMUNO CHEMISTRY Routine 06/18/2024 HEMATOLOGY Routine 06/18/2024 CHEMISTRY Routine 06/18/2024 CHEMISTRY Routine 06/18/2024 [facility] RESULTS Routine 06/18/2024 documented in this encounter Results * [facility] Lab Results (06/18/2024) Pathologist [facility] eKt/V (Tattersall) 1.28 Knowledge Center WSTDKT/V 0.8 Knowledge Center spKt/V (Daugirdas II) 1.50 Knowledge Center 06/18/2024 06/18/2024 [facility] Ordering Provider LAB BLOOD ORDERABLES Final Result [facility] Contact Performing lab Unknown, [place] * HD KINETICS (06/18/2024) Pathologist [facility] % Urea Reduction 70 65 - 80 % [facility] 06/18/2024 06/22/2024 9:5 5 AM EST Narrative Resulting Agency Comment Specimen source: Plasma Srinivas Agrawal MD LAB BLOOD ORDERABLES Final Result [facility] See order comments or contact performing lab Unknown, [place] * POST CHEMISTRY (06/18/2024) Pathologist [facility] BUN Post Dialysis 13 6 - 19 mg/dL [facility] 06/18/2024 06/22/2024 9:5 5 AM EST Narrative [facility] - 06/22/2024 Unless otherwise specified, test(s) performed at: [facility], [address] [place] [address] PRESS SERVICE READER: Dwayne Fuentes M.D. For any questions, please call customer service at FREQUENCY:MONTHLY Resulting Agency Comment Specimen source: Plasma Srinivas Agrawal MD LAB BLOOD ORDERABLES Final Result Performing Organization Address City/[facility]/ZIP Co de Phone Number [employer] [facility] See order comments or contact performing lab Unknown, [place] * IMMUNO CHEMISTRY (06/18/2024) Pathologist [facility] Hep B Surface Ag Negative Negative [facility] 06/18/2024 06/19/2024 11: 21 AM EST Narrative Resulting Agency Comment Specimen source: Serum Srinivas Agrawal MD LAB BLOOD ORDERABLES Final Result Performing Organization Address City/[facility]/ZIP Co de Phone Number [employer] [facility] See order comments or contact performing [...] 06/19/2024 Unless otherwise specified, test(s) performed at: [facility], [address] [place], [place] [id number] PRESS SERVICE READER: Dwayne Fuentes M.D. For any questions, please call customer service at FREQUENCY:MONTHLY Resulting Agency Comment Specimen source: Serum Srinivas Agrawal MD LAB BLOOD ORDERABLES Edite d Result - Final Performing Organization Address [facility] Co de Phone Number [facility] See order comments or contact performing lab Unknown, [place] * (ABNORMAL) HEMATOLOGY (06/18/2024) Hemoglobin 7.9(L) 12.0 - 16.0 g/dL [facility] Hemoglobin x 3 23.7(L) 36.0 - 48.0 % [facility] 06/18/2024 06/19/2024 12: 24 PM EST Narrative [facility] - 06/19/2024 Unless otherwise specified, test(s) performed at: [facility], [address] [place] [address] PRESS SERVICE READER: Dwayne Fuentes M.D. For any questions, please call customer service at FREQUENCY:MONTHLY Resulting Agency Comment Specimen source: Blood Srinivas Agrawal MD LAB BLOOD ORDERABLES Final Result Performing Organization Address City/[facility]/ZIP Co de Phone Number [facility] See order comments or contact performing lab Unknown, [place] * (ABNORMAL) [facility] Chemistry (06/18/2024) PTH 145(H) 16 - 80 pg/mL [facility] 06/18/2024 06/19/2024 11: 40 AM EST Narrative [facility] - 06/19/2024 Unless otherwise specified, test(s) performed at: [facility], [address] [place] [address] PRESS SERVICE READER: Dwayne Fuentes M.D. For any questions, please call customer service at FREQUENCY:MONTHLY Resulting Agency Comment Specimen source: Plasma us Srinivas Agrawal MD LAB BLOOD ORDERABLES Final Result [employer] [facility] See order comments or contact performing lab Unknown, [place] documented in this encounter Visit Diagnoses Not on filedocumented in this encounter Care Teams Diathermy Equipment Repairer Relationship Specialty Start Date End Date Marita Wetzel DO [address] [place] [address] PCP - General Family Medicine 11/14/22 documented as of this encounter
--- OUTSIDE RECORDS SUMMARY | 2024-08-31 14:39 | XMS_ITS | Encounter Summary ---
Author Organization [facility], Address [address] [place] [address] Phone Care Team Providers Care Computer Science Instructor Name Role Phone Marita Wetzel DO Primary Care Provider Unava ilable Reason for Visit * Reason Comments Med Refill Encounter Details Date Type Department Care Team (Late Contact Info) Description 01/04/2021 Refill [facility] [address] [place] [phone] Bernardo Doty MD [address] [address] [place] [phone] Social History Tobacco Use Types Packs/Day Years [...] Support [facility] [address] [facility] [place] [address] 11/03/2024 12:30 PM EDT Scheduled Only [facility] [address] [facility] [place] [place] [address] documented as of this encounter Visit Diagnoses Not on filedocumented in this encounter Care Teams Computer Science Instructor Relationship Specialty Start Date End Date Marita Wetzel DO [address] [place] [address] PCP - General Family Medicine 11/14/22 documented as of this encounter
== END 2024-08-31 14:14 | disposition home or self-care (01) ==
PROVIDERS: PCP Family Medicine; Visit Provider Hospitalist
DX: R91.8 Other nonspecific abnormal finding of lung field (principal); A43.9 Nocardiosis, unspecified; J18.9 Pneumonia, unspecified organism; J90 Pleural effusion, not elsewhere classified
CPT/HCPCS: 99214

== ENCOUNTER → 2024-08-31 13:32 | Outpatient (BNVA) | payer MEDICARE, OTHER, SELFPAY | PROVIDERS: PCP Family Medicine; Visit Provider Hospitalist | DX: J18.9 Pneumonia, unspecified organism (principal); J90 Pleural effusion, not elsewhere classified; R91.8 Other nonspecific abnormal finding of lung field; A43.9 Nocardiosis, unspecified | CPT/HCPCS: 99212 ==

== ENCOUNTER 2024-09-01 15:36 | Outpatient (AMB) | payer MEDICARE, OTHER, SELFPAY ==
--- OUTSIDE RECORDS SUMMARY | 2024-09-01 15:38 | XMS_ITS | Encounter Summary ---
Author Organization [facility] Address [address] [place] [address] Phone Care Team Providers Care Bioinformatics Programmer Name Role Phone Marita Wetzel DO Primary Care Provider Unava ilable Encounter Details Date Type Department Care Team (Late st Contact Info) Description 05/20/2023 Documentation Only [facility] [address] [place] [phone] [place], [place], [place] [address] [place] [phone] Social History Tobacco Use Types Packs/Day Years [...] Of [facility] Center [address] [place] [phone] 11/03/2024 12:30 PM EDT Scheduled Only [facility] Vascular Access [place] [address] [place] [place] [phone] documented as of this encounter Visit Diagnoses Not on filedocumented in this encounter Care Teams Bioinformatics Programmer Relationship Specialty Start Date End Date Marita Wetzel DO [address] [place] [address] PCP - General Family Medicine 11/14/22 documented as of this encounter
--- OUTSIDE RECORDS SUMMARY | 2024-09-01 15:38 | XMS_ITS | Encounter Summary ---
Author Organization [facility] Address [address] [place] [address] Phone Care Team Providers Care Perinatal Breastfeeding Assistant Name Role Phone Marita Wetzel DO Primary Care Provider Unava ilable Encounter Details Date Type Department Care Team (Late st Contact Info) Description 05/01/2023 Documentation Only [facility] Of [address] [place] [phone] [place], [place] [address] [place] [phone] Social History Tobacco Use Types Packs/Day Years [...] Support [facility] Center [address] [place] [phone] 11/03/2024 12:30 PM EDT Scheduled Only [facility] Vascular Access [place] [address] [place] [phone] Scheduled Orders Name Type Priority Associated Diagnoses [...] Primary documented in this encounter Care Teams Perinatal Breastfeeding Assistant Relationship Specialty Start Date End Date Marita Wetzel DO [address] [place] [address] PCP - General Family Medicine 11/14/22 documented as of this encounter
--- OUTSIDE RECORDS SUMMARY | 2024-09-01 15:38 | XMS_ITS | Encounter Summary ---
Author Organization [facility] Address [address] [place] [address] Phone Care Team Providers Care Toys And Games Hand Finisher Name Role Phone Marita Wetzel DO Primary Care Provider Unava ilable Encounter Details Date Type Department Care Team (Late st Contact Info) Description 04/18/2023 Documentation Only [facility] [address] [place] [phone] Jerod Adames DO [address] [place] [address] [place] [phone] Social History Tobacco Use Types Packs/Day Years [...] Access Center [address] [place] [phone] 11/03/2024 12:30 PM EDT Scheduled Only [facility] V[facility] Access [place] [address] [place] [address] documented as of this encounter Visit Diagnoses Not on filedocumented in this encounter Care Teams Toys And Games Hand Finisher Relationship Specialty Start Date End Date Marita Wetzel DO [address] [place] [address] PCP - General Family Medicine 11/14/22 documented as of this encounter
--- OUTSIDE RECORDS SUMMARY | 2024-09-01 15:38 | XMS_ITS | Encounter Summary ---
Author Organization [facility] [place], Address [place] [address] Phone Care Team Providers Care Management Professionals Name Role Phone Marita Wetzel DO Primary Care Provider Unava ilable Encounter Details Date Type Department Care Team (Late st Contact Info) Description 08/30/2024 Orders Only [facility] [place] [address] [place] [phone] Srinivas Agrawal MD [address] [place] [address] [place] [phone] Social History Tobacco Use Types Packs/Day Years [...] Support [facility] [address] [place] [address] [place] [phone] 11/03/2024 12:30 PM EDT Scheduled Only [facility] Access [address] [place] [address] documented as of this encounter Procedures Procedure Name Priority Date/Time Associated Diagnosis Comments CHEMISTRY Routine 08/30/2024 documented in this encounter Results * Data Symmetry Chemistry (08/30/2024) Potassium 4.5 3.5 - 5.1 mEq/L [facility] 08/30/2024 08/31/2024 10: 10 AM EDT Narrative [facility] - 08/31/2024 Unless otherwise specified, test(s) performed at: [facility] [place], [address] [place] [address] CLOUD DEVELOPER: Dwayne Fuentes M.D. For any questions, please call customer service at FREQUENCY:OTHER Resulting Agency Comment Specimen source: Serum us Srinivas Agrawal MD LAB BLOOD ORDERABLES Final Result [email or web address] See order comments or contact performing lab Unknown, [place] documented in this encounter Visit Diagnoses Not on filedocumented in this encounter Care Teams Management Professionals Relationship Specialty Start Date End Date Marita Wetzel DO [address] [place] [address] PCP - General Family Medicine 11/14/22 documented as of this encounter
--- OUTSIDE RECORDS SUMMARY | 2024-09-01 15:38 | XMS_ITS | Encounter Summary ---
Author Organization [facility], Address [address] [place] [address] Phone Care Team Providers Care Over The Road Driver Name Role Phone Marita Wetzel DO Primary Care Provider Unava ilable Encounter Details Date Type Department Care Team (Late st Contact Info) Description 08/30/2024 Treatment [facility], [address] [place] [address] Jeanne Bailey MD [address] [place] [address] [place] [phone] End stage renal disease; Dependence on renal [...] BASIC NOTE Patient: Alix Sharp : 1960 [facility]: [facility] Note Author: JEANNE BAILEY MD Service Date: 08/30/2024 This patient was personally seen for a basic visit as part of routine monthly dialysis care for end stage renal disease. Attending Manager Of Change: JEANNE BAILEY Dialysis Location: [facility] Schedule: Shift: 3 OVERVIEW Patient [...] Run even or positive. HOME MEDICATIONS Current [facility] Outpatient Medications carvedilol 25 mg tablet [...] K, 2.50 Ca, 1.0 Mg, 100 Dextrose (ST5790) Sodium: 137 Bicarb: 35 Pre Dialysis Vitals [...] reviewed. Dietary adjustments made in conjunction with range manager. 7.Transplant: Not a candidate. 07/21/24 Patient [...] reviewed. Dietary adjustments made in conjunction with range manager. 7.Transplant: not a candidate. 06/21/24 Patient is stable, recently cd from [facility] after episode of pneumonia Medications reviewed [...] reviewed. Dietary adjustments made in conjunction with range manager. Transplant: Not a candidate. 05/24/24 Patient [...] reviewed. Dietary adjustments made in conjunction with range manager. 7.Transplant: Not a candidate. decreasing tacrolimus [...] reviewed. Dietary adjustments made in conjunction with range manager. Transplant: The patient will be re-evaluated for a kidney transplant. Signed by: JEANNE BAILEY MD on 08/30/2024 at 09:01:38 PM Transcribed by: JEANNE BAILEY MD on 08/30/2024 at 09:01:38 PM documented in this encounter Plan of Treatment Upcoming Encounters Date Type Department Care Team (Late st Contact Info) Description 09/16/2024 10:00 AM EDT Clinical Support [facility] [place], [facility] Vascular Access Center [address] [place] [address] 11/03/2024 12:30 PM EDT Scheduled Only [facility], - Vascular Access Center [address] [place] [address] documented as of this encounter Visit Diagnoses Diagnosis End stage renal disease Dependence on renal dialysis documented in this encounter Care Teams Over The Road Driver Relationship Specialty Start Date End Date Marita Weztel DO [address] [place] [address] PCP - General Family Medicine 11/14/22 documented as of this encounter
--- OUTSIDE RECORDS SUMMARY | 2024-09-01 15:38 | XMS_ITS ---
Author Organization [facility] Address [address] [place] [address] Care Team Providers Care Sponsorship Manager Name Role Phone Miryam Tyson Unavailable [phone] REASON FOR VISIT AGENT Encounters Encounter Location Date Provider Diagnosis [facility] [address] [place] [address] 04/22/2024 Miryam Tyson Plan Of Treatment No Information Progress Notes * Chris BEARDB:1960 (63 yo F)Acc No.[id number]:04/22/2024 Patient:?Alix BEARD :1960???Age:63 Y???Sex:Female Address:[address] [place] [address], [address] * true * Date:? Generated for Michael santos/Chloe/eTransmitting on:?09/01/2024 03:38 PM EDT
--- OUTSIDE RECORDS SUMMARY | 2024-09-01 15:38 | XMS_ITS ---
Author Organization [facility] Address [address] [place] [address] Care Team Providers Care Wound/Ostomy Clinical Nurse Specialist Name Role Phone Miryam Tyson Unavailable [phone] Encounters Encounter Location Date Provider Diagnosis [facility] [address] [place] [address] 07/02/2024 Miryam Tyosn Plan Of Treatment No Information Progress Notes * Farhan BEARDaDOB:1960 (64 yo F)Acc No.[id number]:07/02/2024 Progress Notes Patient:?Alix BEARD Provider:?Miryam Tyson DPM :1960???Age:64 Y???Sex:Female D ate:07/02/2024 Address:[address] [place], [place] [phone] Subjective: * Chief Complaints: * ??? * Medical History:? Objective: * Vitals:? Assessment: Plan: * Treatment: * Images: * The named appointment provid er may or may not be the originator of this progress note, and it is not deemed complete until electronically signed by the appointment provider. Sign off status: Pending * Provider:?Miryam Tyson DPM Date:? Generated for Michael santos/Chloe/Oraliaitting on:?09/01/2024 03:38 PM EDT
--- OUTSIDE RECORDS SUMMARY | 2024-09-01 15:39 | XMS_ITS | Encounter Summary ---
Author Organization [facility] Address [address] [facility] 7t [place] [address] Care Team Providers Care Equipment Records Supervisor Name Role Phone Marita Wetzel DO Primary Care Provider [phone] Carmen Becker PharmD Unavailable [phone] Encounter Details Date Type Department Care Team (Late st Contact Info) Description 10/14/2022 Abstract [facility] [address] [place] [address] Marita Wetzel DO 230 [place] [address] Social History Tobacco Use Types Packs/Day Years [...] documented as of this encounter Care Teams Equipment Records Supervisor Relationship Specialty Start Date End Date Marita Wetzel DO [address] [place] [address] PCP - General Family Medicine 04/21/18 Carmen Becker PharmD [address] [place] [address] Pharmacist Internal Medicine 07/21/23 01/21/24 [facility] 05/22/24 documented as of this encounter
--- OUTSIDE RECORDS SUMMARY | 2024-09-01 15:39 | XMS_ITS | Encounter Summary ---
Author Organization [facility] Address [address] [place] [address] Phone Care Team Providers Care Rn Radiation Oncology Name Role Phone Marita Wetzel DO Primary Care Provider Unava ilable Encounter Details Date Type Department Care Team (Late st Contact Info) Description 06/25/2022 Documentation Only [facility] [address] [place] [address] Pauline Aguayo [address] [place] [address] Social History Tobacco Use Types Packs/Day Years [...] [facility] Access Center [address] [place] [address] 11/03/2024 12:30 PM EDT Scheduled Only [facility] Access Center [address] [place] [address] documented as of this encounter Visit Diagnoses Not on filedocumented in this encounter Care Teams Rn Radiation Oncology Relationship Specialty Start Date End Date Marita Weztel DO 230 [place] [address] PCP - General Family Medicine 11/14/22 documented as of this encounter
--- OUTSIDE RECORDS SUMMARY | 2024-09-01 15:39 | XMS_ITS | Encounter Summary ---
Author Organization [facility] Address [address] [place] [address] Phone Care Team Providers Care Customer Marketing Manager Name Role Phone Marita Wetzel DO Primary Care Provider Unava ilable Encounter Details Date Type Department Care Team (Late st Contact Info) Description 10/24/2023 Documentation Only [facility] [address] [address] Hendrix, [place], [place] [address] [place] [phone] Social History Tobacco Use Types Packs/Day Years [...] [facility] [address] [place] [address] 11/03/2024 12:30 PM EDT Scheduled Only [facility] V[facility] Access [place] [address] [place] [address] documented as of this encounter Visit Diagnoses Not on filedocumented in this encounter Care Teams Customer Marketing Manager Relationship Specialty Start Date End Date Marita Wetzel DO [address] [place] [address] PCP - General Family Medicine 11/14/22 documented as of this encounter
--- OUTSIDE RECORDS SUMMARY | 2024-09-01 15:39 | XMS_ITS ---
Author Organization [facility] Address [address] [place] [address] Care Team Providers Care Materials Specialist Name Role Phone Miryam Tyson Unavailable [phone] REASON FOR VISIT Cancel Encounters Encounter Location Date Provider Diagnosis [facility] [address] [place] [address] 06/17/2024 Miryam Tyson Plan Of Treatment No Information Progress Notes * Chris BEARDB:1960 (64 yo F)Acc No.[id number]:06/17/2024 Patient:?Alix BEARD :1960???Age:64 Y???Sex:Female Address:[address] [place] [address], [address] * true * Date:? Generated for Binui danielle/Chloe/eTransmitting on:?09/01/2024 03:39 PM EDT
--- OUTSIDE RECORDS SUMMARY | 2024-09-01 15:39 | XMS_ITS | Patient Health Record ---
Author Organization [facility] Address [address] [place] [address] Care Team Providers Care Activities Concierge Name Role Phone FiorellasylwiaMiryam Unavailable [phone] Reason For Referral No Information Encounters Encounter Location Date Provider Diagnosis [facility] [address] [place] [address] 04/22/[address] [facility] [address] [place] [address] 06/17/2024 Miryam Tyson Plan Of Treatment No Information Insurance Providers Payer Name Payer Address Payer Phone Subscriber Number Group Number Insured Name Patient Relationship to Insured Coverage Start Date Coverage End Date Medicare National [facility] [address] [place] [address] [id number] Alix Sharp Self - patient is the insured for Life [address] [place] [phone] [id number] Alix Sharp Self - patient is the insured
--- OUTSIDE RECORDS SUMMARY | 2024-09-01 15:39 | XMS_ITS | Encounter Summary ---
Author Organization [facility] Address [address] [place] [address] 7t [place] [address] Care Team Providers Care Serger Name Role Phone Marita Wetzel DO Primary Care Provider [phone] Carmen Becker PharmD Unavailable [phone] Encounter Details Date Type Department Care Team (Late st Contact Info) Description 12/11/2022 Orders Only [facility] [address] [place] [address] Heather Nesbitt RN [address] [place] [address] Social History Tobacco Use Types Packs/Day Years [...] documented as of this encounter Care Teams Serger Relationship Specialty Start Date End Date Marita Wetzel DO [address] [place] [address] PCP - General Family Medicine 04/21/18 Carmen Becker PharmD [address] [place] [address] Pharmacist Internal Medicine 07/21/23 01/21/24 [facility] 05/22/24 documented as of this encounter
--- OUTSIDE RECORDS SUMMARY | 2024-09-01 15:39 | XMS_ITS | Encounter Summary ---
Author Organization [facility] [place], Address [address] [place] [address] Phone Care Team Providers Care Scheduling Manager Name Role Phone Marita Wetzel DO Primary Care Provider Unava ilable Encounter Details Date Type Department Care Team (Late st Contact Info) Description 04/02/2023 Documentation Only [facility] [place] [address] Bernardo Doty MD [address] [facility] [place] [address] Social History Tobacco Use Types Packs/Day Years [...] Support [facility] Vascular Access Center [address] [place] [address] [place] [address] 11/03/2024 12:30 PM EDT Scheduled Only [facility] Vascular Access [place] [address] [place] [address] documented as of this encounter Visit Diagnoses Not on filedocumented in this encounter Care Teams Scheduling Manager Relationship Specialty Start Date End Date Marita Wetzel DO [address] [place] [address] PCP - General Family Medicine 11/14/22 documented as of this encounter
--- OUTSIDE RECORDS SUMMARY | 2024-09-01 15:39 | XMS_ITS | Encounter Summary ---
Author Organization [facility] Address [address] [place] [address] Phone Care Team Providers Care Satellite Dish Repairer Name Role Phone Fouzia Wetzelfer Primary Care Provider Unava ilable Encounter Details Date Type Department Care Team (Late st Contact Info) Description 10/03/2023 Documentation Only [facility] [address] [place] [address] Srinivas Agrawal MD [address] [place] [address] [place] [address] Social History Tobacco Use Types [...] Support [facility] Vascular Access [address] [place] [address] 11/03/2024 12:30 PM EDT Scheduled Only [facility] Vascular Access [address] [place] [address] documented as of this encounter Visit Diagnoses Not on filedocumented in this encounter Care Teams Satellite Dish Repairer Relationship Specialty Start Date End Date Marita Wetzel DO [address] [place] [address] PCP - General Family Medicine 11/14/22 documented as of this encounter
--- OUTSIDE RECORDS SUMMARY | 2024-09-01 15:39 | XMS_ITS | Encounter Summary ---
Author Organization [facility] [place], Address [address] [place] [address] Phone Care Team Providers Care Feather Curling Machine Operator Name Role Phone Marita Wetzel DO Primary Care Provider Unava ilable Reason for Visit * Reason Comments Med Refill Encounter Details Date Type Department Care Team (Late Contact Info) Description 12/06/2020 Refill [facility] [place] [address] [place] [address] Bernardo Doty MD [address] [place] [address] Social History Tobacco Use Types Packs/Day Years [...] Support [facility] V[facility] Access Center [address] [place] [address] 11/03/2024 12:30 PM EDT Scheduled Only [facility] [address] [place] [address] documented as of this encounter Visit Diagnoses Not on filedocumented in this encounter Care Teams Feather Curling Machine Operator Relationship Specialty Start Date End Date Marita Wetzel DO [address] [place] [address] PCP - General Family Medicine 11/14/22 documented as of this encounter
--- OUTSIDE RECORDS SUMMARY | 2024-09-01 15:39 | XMS_ITS | Encounter Summary ---
Author Organization [facility] Address [address] [place] [address] Phone Care Team Providers Care Site Promotion Agent Name Role Phone Marita Wetzel DO Primary Care Provider Unava ilable Encounter Details Date Type Department Care Team (Late st Contact Info) Description 06/14/2022 Documentation Only [facility] [address] [place] [address] Candace Adam PA Social History Tobacco Use [...] Support [facility] Of [facility] Vascular Access Center [address] [place] [address] 11/03/2024 12:30 PM EDT Scheduled Only [facility] Vascular Access [address] [place] [address] documented as of this encounter Visit Diagnoses Not on filedocumented in this encounter Care Teams Site Promotion Agent Relationship Specialty Start Date End Date Marita Wetzel DO [address] [place] [address] PCP - General Family Medicine 11/14/22 documented as of this encounter
--- OUTSIDE RECORDS SUMMARY | 2024-09-01 15:39 | XMS_ITS | Encounter Summary ---
Author Organization [facility] Address [address] [place] [address] Phone Care Team Providers Care Ton Cylinder Inspector Name Role Phone Marita Wetzel DO Primary Care Provider Unava ilable Encounter Details Date Type Department Care Team (Late st Contact Info) Description 12/31/2022 Documentation Only [facility] [address] [place] [phone] Candace Adam PA Social History Tobacco Use [...] [facility] [address] [place] [address] 11/03/2024 12:30 PM EDT Scheduled Only [facility] Vascular Access [address] [place] [address] documented as of this encounter Visit Diagnoses Not on filedocumented in this encounter Care Teams Ton Cylinder Inspector Relationship Specialty Start Date End Date Marita Wetzel DO [address] [place] [address] PCP - General Family Medicine 11/14/22 documented as of this encounter
--- OUTSIDE RECORDS SUMMARY | 2024-09-01 15:39 | XMS_ITS | Encounter Summary ---
Author Organization [facility] Address [address] [facility] [address] [place] [address] Care Team Providers Care Sap Data Analyst Name Role Phone Marita Wetzel DO Primary Care Provider [phone] Reason for Visit * Reason Onset Date Comments Med Refill 06/25/2024 Encounter Details Date Type Department Care Team ([facility] st Contact Info) Description 06/25/2024 Telephone [facility] MED[facility] [address] [place] [address] Marita Wetzel DO 230 [place] [address] Med Refill Social History Tobacco Use Types [...] 1 g tablet To be sent to: [facility]/pharmacy #[id number] *states it was prescribed before documented [...] documented as of this encounter Care Teams Sap Data Analyst Relationship Specialty Start Date End Date Marita Wetzel DO [address] [place] [address] PCP - General Family Medicine 04/21/18 [facility] 05/22/24 documented as of this encounter
--- OUTSIDE RECORDS SUMMARY | 2024-09-01 15:39 | XMS_ITS | Encounter Summary ---
Author Organization [facility] Address [address] [place] [address] Phone Care Team Providers Care Assistant Guest Services Manager Name Role Phone Marita Wetzel DO Primary Care Provider Unava ilable Encounter Details Date Type Department Care Team (Late st Contact Info) Description 03/18/2023 Documentation Only [facility] Of [address] [place] [address] Srinivas Agrawal MD [address] [place] [address] [place] [address] Social History Tobacco Use Types [...] Services Of [facility] Vascular Access [address] [place] [address] 11/03/2024 12:30 PM EDT Scheduled Only [facility] Vascular Access [address] [place] [address] documented as of this encounter Visit Diagnoses Not on filedocumented in this encounter Care Teams Assistant Guest Services Manager Relationship Specialty Start Date End Date Marita Wetzel DO [address] [place] [address] PCP - General Family Medicine 11/14/22 documented as of this encounter
--- OUTSIDE RECORDS SUMMARY | 2024-09-01 15:39 | XMS_ITS | Encounter Summary ---
Author Organization [facility] Address [address] [facility] 7t [place] [address] Care Team Providers Care Electron Beam Photo Mask Technician Name Role Phone Marita Wetzel DO Primary Care Provider [phone] Carmen Becker PharmD Unavailable [phone] Encounter Details Date Type Department Care Team ([facility] st Contact Info) Description 04/29/2023 Telephone [facility]INE [address] [place] [address] Marita Wetzel DO [address] [place] [address] Social History Tobacco Use Types Packs/Day Years [...] documented as of this encounter Care Teams Electron Beam Photo Mask Technician Relationship Specialty Start Date End Date Marita Wetzel DO [address] [place] [address] PCP - General Family Medicine 04/21/18 Carmen Becker PharmD 230 [place] [address] Pharmacist Internal Medicine 07/21/23 01/21/24 [facility] 05/22/24 documented as of this encounter
--- OUTSIDE RECORDS SUMMARY | 2024-09-01 15:39 | XMS_ITS | Encounter Summary ---
Author Organization [facility] Address [address] [place] [address] Phone Care Team Providers Care Etl Lead Name Role Phone Marita Wetzel DO Primary Care Provider Unava ilable Encounter Details Date Type Department Care Team (Late st Contact Info) Description 09/11/2023 Documentation Only [facility] Of [address] [place] [address] Pauline Aguayo [address] [place] [address] Social History Tobacco Use Types Packs/Day Years [...] Of [facility] Vascular Access Center [address] [place] [address] 11/03/2024 12:30 PM EDT Scheduled Only [facility] Access Center [address] [place] [place] [address] documented as of this encounter Visit Diagnoses Not on filedocumented in this encounter Care Teams Etl Lead Relationship Specialty Start Date End Date Marita Wetzel DO [address] [place] [address] PCP - General Family Medicine 11/14/22 documented as of this encounter
--- OUTSIDE RECORDS SUMMARY | 2024-09-01 15:39 | XMS_ITS | Encounter Summary ---
Author Organization [facility] Address [address] [place] [address] Phone Care Team Providers Care Butt Presser Name Role Phone Marita Wetzel DO Primary Care Provider Unava ilable Encounter Details Date Type Department Care Team (Late st Contact Info) Description 08/11/2023 Documentation Only [facility] Of [address] [place] [address] Hendrix, [place], [place] [address] [place] [address] Social History Tobacco Use Types Packs/Day Years [...] Support [facility] Of [facility] Vascular Access Center [address] [place] [address] 11/03/2024 12:30 PM EDT Scheduled Only [facility] Vascular Access [place] [address] [place] [place] [address] documented as of this encounter Visit Diagnoses Not on filedocumented in this encounter Care Teams Butt Presser Relationship Specialty Start Date End Date Marita Wetzel DO [address] [place] [address] PCP - General Family Medicine 11/14/22 documented as of this encounter
--- OUTSIDE RECORDS SUMMARY | 2024-09-01 15:39 | XMS_ITS | Encounter Summary ---
Author Organization [facility] Address [address] [place] [address] Phone Care Team Providers Care Edge Stainer Machine Name Role Phone Marita Wetzel DO Primary Care Provider Unava ilable Encounter Details Date Type Department Care Team (Late st Contact Info) Description 10/17/2023 Documentation Only [facility] Of [address] [place] [address] [place], [place] [address] [place] [address] Social History Tobacco Use Types Packs/Day Years [...] [facility] Vascular Access Center [address] [place] [address] 11/03/2024 12:30 PM EDT Scheduled Only [facility] Access Center [address] [place] [address] documented as of this encounter Visit Diagnoses Not on filedocumented in this encounter Care Teams Edge Stainer Machine Relationship Specialty Start Date End Date Marita Wetzel DO [address] [place] [address] PCP - General Family Medicine 11/14/22 documented as of this encounter
--- OUTSIDE RECORDS SUMMARY | 2024-09-01 15:39 | XMS_ITS | Encounter Summary ---
Author Organization [facility] Of [facility] Address [address] [place] [address] Phone Care Team Providers Care Abrasive Coating Machine Operator Name Role Phone Marita Wetzel DO Primary Care Provider Unava ilable Encounter Details Date Type Department Care Team (Late st Contact Info) Description 03/18/2023 Documentation Only [facility] Of [facility] [address] [place] [address] Bernardo Doty MD [address] [place] [address] [place] [address] Social History Tobacco Use Types [...] [facility] Access Center [address] [place] [address] 11/03/2024 12:30 PM EDT Scheduled Only [facility] V[facility] Access Center [address] [place] [address] documented as of this encounter Visit Diagnoses Not on filedocumented in this encounter Care Teams Abrasive Coating Machine Operator Relationship Specialty Start Date End Date Marita Wetzel DO [address] [place] [address] PCP - General Family Medicine 11/14/22 documented as of this encounter
--- OUTSIDE RECORDS SUMMARY | 2024-09-01 15:39 | XMS_ITS | Encounter Summary ---
Author Organization [facility] Of [facility] Address [address] [place] [address] Phone Care Team Providers Care Geospatial Technician Name Role Phone Marita Wetzel DO Primary Care Provider Unava ilable Encounter Details Date Type Department Care Team (Late st Contact Info) Description 09/12/2023 Documentation Only [facility] Of [address] [place] [address] Hendrix, [place], [place] [address] [place] [address] Social History Tobacco Use Types Packs/Day Years [...] of [facility] [place] [facility] [address] [place] [place] [address] 11/03/2024 12:30 PM EDT Scheduled Only [facility] Vascular Access [place] [address] [place] [address] documented as of this encounter Visit Diagnoses Not on filedocumented in this encounter Care Teams Geospatial Technician Relationship Specialty Start Date End Date Marita Wetzel DO [address] [place] [address] PCP - General Family Medicine 11/14/22 documented as of this encounter
--- OUTSIDE RECORDS SUMMARY | 2024-09-01 15:39 | XMS_ITS | Encounter Summary ---
Author Organization [facility] Of [facility] Address [address] [place] [address] Phone Care Team Providers Care City Recorder Name Role Phone Marita Wetzel DO Primary Care Provider Unava ilable Encounter Details Date Type Department Care Team (Late st Contact Info) Description 10/06/2023 Documentation Only [facility] Of [address] [place] [address] Hend[place], [place], [place] [address] [place] [address] Social History Tobacco Use Types Packs/Day Years [...] Support [facility] Vascular Access Center [address] [place] [address] 11/03/2024 12:30 PM EDT Scheduled Only [facility] Vascular Access [place] [address] [place] [address] documented as of this encounter Visit Diagnoses Not on filedocumented in this encounter Care Teams City Recorder Relationship Specialty Start Date End Date Marita Wetzel DO [address] [place] [address] PCP - General Family Medicine 11/14/22 documented as of this encounter
--- OUTSIDE RECORDS SUMMARY | 2024-09-01 15:39 | XMS_ITS | Encounter Summary ---
Author Organization [employer] Address [address] [facility] 7t [place] [address] Care Team Providers Care Rail Car Welder Name Role Phone Marita Wetzel DO Primary Care Provider +1- [phone] Carmen Becker PharmD Unavailable [phone] Reason for Visit * Reason Onset Date Comments Prior Authorization 04/25/2023 [employer] Encounter Details Date Type Department Care Team ([facility] st Contact Info) Description 04/25/2023 Telephone [facility] [address] [place] [address] aMrita Wetzel DO [address] [place] [address] Prior Authorization ([employer]) Social History Tobacco [...] documented as of this encounter Care Teams Rail Car Welder Relationship Specialty Start Date End Date Marita Wetzel DO [address] [place] [address] PCP - General Family Medicine 04/21/18 Carmen Becker, PharmD [address] [place] [address] Pharmacist Internal Medicine 07/21/23 01/21/24 [facility] 05/22/24 documented as of this encounter
--- OUTSIDE RECORDS SUMMARY | 2024-09-01 15:40 | XMS_ITS | Encounter Summary ---
Author Organization [facility], Address [place] [address] Phone Care Team Providers Care Fur Cutting Machine Operator Name Role Phone Marita Wetzel DO Primary Care Provider Unava ilable Reason for Visit * Reason Comments Med Refill Encounter Details Date Type Department Care Team (Late Contact Info) Description 06/30/2024 Refill [facility] [address] [place] [address] Srinivas Agrawal MD [address] [place] [phone] Social History Tobacco Use Types Packs/Day Years [...] [facility] [address] [place] [phone] 11/03/2024 12:30 PM EDT Scheduled Only [facility] [address] [place] [phone] documented as of this encounter Procedures Procedure Name Priority Date/Time Associated Diagnosis Comments HEMATOLOGY Routine 06/30/2024 documented in this encounter Results * (ABNORMAL) HEMATOLOGY (06/30/2024) Hemoglobin 6.3(L) 12.0 - 16.0 g/dL [facility] Hemoglobin x 3 18.9(L) 36.0 - 48.0 % [email or web address] 06/30/2024 07/01/2024 10: 49 AM EDT Narrative [facility] - 07/01/2024 Unless otherwise specified, test(s) performed at: [employer] [facility] [employer], [address] [place] [address] LEGAL AIDE: Dwayne Fuentes M.D. For any questions, please call customer service at FREQUENCY:OTHER Resulting Agency Comment Specimen source: Blood Srinivas Agrawal MD LAB BLOOD ORDERABLES Final Result [email or web address] See order comments or contact performing lab Unknown, [place] documented in this encounter Visit Diagnoses Not on filedocumented in this encounter Care Teams Fur Cutting Machine Operator Relationship Specialty Start Date End Date Marita Wetzel DO [address] [place] [address] PCP - General Family Medicine 11/14/22 documented as of this encounter
--- OUTSIDE RECORDS SUMMARY | 2024-09-01 15:40 | XMS_ITS | Encounter Summary ---
Author Organization [facility] Address [address] [place] [address] Phone Care Team Providers Care Director Of Career Services Name Role Phone Marita Wetzel DO Primary Care Provider Unava ilable Encounter Details Date Type Department Care Team (Late st Contact Info) Description 07/29/2023 Documentation Only [facility] [address] [place] [phone] Pauline Aguayo [address] [place] [phone] Social History Tobacco Use Types Packs/Day Years [...] Services Of [facility] [address] [place] [address] 11/03/2024 12:30 PM EDT Scheduled Only [facility] [address] [place] [phone] documented as of this encounter Visit Diagnoses Not on filedocumented in this encounter Care Teams Director Of Career Services Relationship Specialty Start Date End Date Marita Wetzel DO [address] [place] [address] PCP - General Family Medicine 11/14/22 documented as of this encounter
--- OUTSIDE RECORDS SUMMARY | 2024-09-01 15:40 | XMS_ITS | Encounter Summary ---
Author Organization [facility] Address [address] [place] [address] Care Team Providers Care Rn Assessment Name Role Phone Marita Wetzel Primary Care Provider +1- [phone] Encounter Details Date Type Department Care Team (Late st Contact Info) Description 05/07/2024 Lab Requisition [facility] - Main Lab [address] [place] [phone] Marily Gordillo MD [address] [place] [address] Chronic embolism and thrombosis of [...] LAB CHEMISTRY METHOD 05/10/2024 11:45 AM EST [facility] Potassium 3.8 3.5 - 5.5 mmol/L LAB CHEMISTRY METHOD 05/10/2024 11:45 AM [facility] Chloride 96 96 - 110 mmol/L LAB CHEMISTRY METHOD 05/10/2024 11:45 AM [facility] CO2 28 21 - 32 mmol/L LAB CHEMISTRY METHOD 05/10/2024 11:45 AM [facility] Anion Gap 11 3 - 11 LAB CHEMISTRY METHOD 05/10/2024 11:45 AM [facility] Glucose 215(H) 70 - 100 mg/dL LAB CHEMISTRY METHOD 05/10/2024 11:45 AM [facility] BUN 45(H) 5 - 25 mg/dL LAB CHEMISTRY METHOD 05/10/2024 11:45 AM [facility] Creatinine 3.47(H) 0.50 - 1.10 mg/dL LAB CHEMISTRY METHOD 05/10/2024 11:45 AM [facility] eGFR 14(L) >=60 mL/min/1. 73m2 LAB CHEMISTRY METHOD 05/10/2024 11:45 AM [facility] Comment:Calculation based on the??Chronic Kidney Disease Epidemiology Collaboration (CKD-EPI) equation refit??without adjustment for race. BUN/Creatinine Ratio 13.0 LAB CHEMISTRY METHOD 05/10/2024 11:45 AM [facility] Albumin 1.7(L) 3.2 - 5.0 g/dL LAB CHEMISTRY METHOD 05/10/2024 11:45 AM [facility] Calcium 8.4(L) 8.5 - 10.5 mg/dL LAB CHEMISTRY METHOD 05/10/2024 11:45 AM [facility] Phosphorus 2.1(L) 2.5 - 4.5 mg/dL LAB CHEMISTRY METHOD 05/10/2024 11:45 AM [facility] Blood Venous blood specimen / Unknown Venipuncture / Unknown 05/10/2024 5:50 AM EST 05/10/2024 9:58 AM EST us Marily Gordillo MD LAB BLOOD ORDERABLES Final Resul t ABHILASH BENTLEY MS ([facility] [address] [place] [address], * Tacrolimus level (05/10/2024 5:50 AM EST) [...] developed and the performance characteristics determined by [facility]. This confirmation testing has not been cleared or approved by the FDA. The laboratory is regulated under CLIA as qualified to perform high-complexity testing. This test is used for patient testing purposes. It should not be regarded as investigational or for research. Test performed at [facility], [address], [place], [place] ??[address] ? [phone] Ashtyn Leigh MD, PhD - Physician'S Assistant Blood Venous blood specimen / Unknown Venipuncture / Unknown 05/10/2024 5:50 AM EST 05/10/2024 9:58 AM EST us Marily Gordillo MD LAB BLOOD ORDERABLES Final Resul t [facility] [address] [place] [address] documented in this encounter Visit Diagnoses Diagnosis Chronic embolism and thrombosis of unspecified vein Acute kidney failure, unspecified (CMS/HCC V24) Acute kidney failure, unspecified documented in this encounter Care Teams Rn Assessment Relationship Specialty Start Date End Date Marita Wetzel DO [address] [place] [address] PCP - General 01/09/23 documented as of this encounter
--- OUTSIDE RECORDS SUMMARY | 2024-09-01 15:40 | XMS_ITS | Encounter Summary ---
Author Organization [facility] Address [address] [place] [address] Care Team Providers Care Operations Vice President Name Role Phone Marita Wetzel DO Primary Care Provider +1- [phone] Encounter Details Date Type Department Care Team (Late st Contact Info) Description 04/29/2024 Lab Requisition [facility] - Main Lab [address] [facility] [place] [phone] Marily Gordillo MD [address] [place] [phone] Chronic embolism and thrombosis of unspecified vein; [...] unspecified documented in this encounter Care Teams Operations Vice President Relationship Specialty Start Date End Date Marita Wetzel DO [address] [place], [place] PCP - General 01/09/23 documented as of this encounter
--- OUTSIDE RECORDS SUMMARY | 2024-09-01 15:40 | XMS_ITS | Encounter Summary ---
Author Organization [facility] Address [address] [place] [address] Care Team Providers Care Netbackup Administrator Name Role Phone Marita Wetzel Primary Care Provider +1- [phone] Encounter Details Date Type Department Care Team (Late st Contact Info) Description 04/20/2024 Lab Requisition [facility] - Main Lab [address] [place] [phone] Marily Gordillo MD [address] [place] [address] Chronic kidney disease, unspecified; Anemia, [...] mmol/L LAB CHEMISTRY METHOD 04/22/2024 11:50 AM [facility] Chloride 112(H) 96 - 110 mmol/L LAB CHEMISTRY METHOD 04/22/2024 11:50 AM [facility] CO2 23 21 - 32 mmol/L LAB CHEMISTRY METHOD 04/22/2024 11:50 AM [facility] Anion Gap 8 3 - 11 LAB CHEMISTRY METHOD 04/22/2024 11:50 AM [facility] Glucose 135(H) 70 - 100 mg/dL LAB CHEMISTRY METHOD 04/22/2024 11:50 AM [facility] BUN 43(H) 5 - 25 mg/dL LAB CHEMISTRY METHOD 04/22/2024 11:50 AM [facility] Creatinine 3.79(H) 0.50 - 1.10 mg/dL LAB CHEMISTRY METHOD 04/22/2024 11:50 AM [facility] eGFR 13(L) >=60 mL/min/1. 73m2 LAB CHEMISTRY METHOD 04/22/2024 11:50 AM [facility] Comment:Calculation based on the??Chronic Kidney Disease Epidemiology Collaboration (CKD-EPI) equation refit??without adjustment for race. BUN/Creatinine Ratio 11.3 LAB CHEMISTRY METHOD 04/22/2024 11:50 AM [facility] Calcium 8.6 8.5 - 10.5 mg/dL LAB CHEMISTRY METHOD 04/22/2024 11:50 AM [facility] AST (SGOT) 9(L) 10 - 42 unit/L LAB CHEMISTRY METHOD 04/22/2024 11:50 AM [facility] ALT (SGPT) 9(L) 10 - 60 unit/L LAB CHEMISTRY METHOD 04/22/2024 11:50 AM [facility] Alkaline Phosphatase 59 42 - 121 unit/L LAB CHEMISTRY METHOD 04/22/2024 11:50 AM [facility] Total Protein 5.8(L) 6.0 - 8.0 g/dL LAB CHEMISTRY METHOD 04/22/2024 11:50 AM [facility] Albumin 2.0(L) 3.2 - 5.0 g/dL LAB CHEMISTRY METHOD 04/22/2024 11:50 AM [facility] Total Bilirubin 0.3 0.0 - 1.4 mg/dL LAB CHEMISTRY METHOD 04/22/2024 11:50 AM [facility] Blood Venous blood specimen / Unknown Venipuncture / Unknown 04/22/2024 7:09 AM EST 04/22/2024 9:42 AM EST Marily Gordillo MD LAB BLOOD ORDERABLES Final Resul t [facility] [address] [place] [address], * (ABNORMAL) Complete blood count (04/22/2024 7:09 AM EST) Pathologist [facility] WBC 8.2 4.8 - 10.8 K/mcL LAB HEMETOLOGY METHOD 04/22/2024 10:44 AM [facility] RBC 2.80(L) 3.80 - 4.80 M/mcL LAB HEMETOLOGY METHOD 04/22/2024 10:44 AM [facility] Hemoglobin 7.8(L) 11.5 - 16.0 g/dL LAB HEMETOLOGY METHOD 04/22/2024 10:44 AM [facility] Hematocrit 27.7(L) 35.0 - 47.0 % LAB HEMETOLOGY METHOD 04/22/2024 10:44 AM [facility] MCV 97.5 79.0 - 98.0 FL LAB HEMETOLOGY METHOD 04/22/2024 10:44 AM [facility] MCH 27.5 27.0 - 32.0 pcg LAB HEMETOLOGY METHOD 04/22/2024 10:44 AM EST [facility] MCHC 28.2(L) 32.0 - 37.0 g/dL LAB HEMETOLOGY METHOD 04/22/2024 10:44 AM [facility] RDW 16.5(H) 11.0 - 15.0 % LAB HEMETOLOGY METHOD 04/22/2024 10:44 AM [facility] Platelets 189 130 - 400 K/mcL LAB HEMETOLOGY METHOD 04/22/2024 10:44 AM [facility] MPV 10.7 7.0 - 11.0 FL LAB HEMETOLOGY METHOD 04/22/2024 10:44 AM [facility] NRBC 0.0 <1.0 % LAB HEMETOLOGY METHOD 04/22/2024 10:44 AM [facility] NRBC Absolute 0.00 <0.10 K/mcL LAB HEMETOLOGY METHOD 04/22/2024 10:44 AM [facility] Blood Venous blood specimen / Unknown Venipuncture / Unknown 04/22/2024 7:09 AM EST 04/22/2024 9:43 AM EST us Marily Gordillo MD LAB BLOOD ORDERABLES Final Resul t [facility] [address] [place] [address], documented in this encounter Visit Diagnoses Diagnosis Chronic kidney disease, unspecified Anemia, unspecified documented in this encounter Care Teams Netbackup Administrator Relationship Specialty Start Date End Date Marita Wetzel DO [address] [place] [address] PCP - General 01/09/23 documented as of this encounter
--- OUTSIDE RECORDS SUMMARY | 2024-09-01 15:40 | XMS_ITS | Encounter Summary ---
Author Organization [facility] Address [address] [place] [address] Phone Care Team Providers Care Outdoor Fitness Trainer Name Role Phone Marita Wetzel DO Primary Care Provider Unava ilable Encounter Details Date Type Department Care Team (Late st Contact Info) Description 06/12/2023 Documentation Only [facility] [address] [place] [phone] [place], [place], [place] [address] [place] [phone] Social History Tobacco Use Types Packs/Day Years [...] Transplant [facility] [address] [place] [phone] 11/03/2024 12:30 PM EDT Scheduled Only [facility] [place] [address] [place] [phone] documented as of this encounter Visit Diagnoses Not on filedocumented in this encounter Care Teams Outdoor Fitness Trainer Relationship Specialty Start Date End Date Marita Wetzel DO [address] [place] [address] PCP - General Family Medicine 11/14/22 documented as of this encounter
--- OUTSIDE RECORDS SUMMARY | 2024-09-01 15:40 | XMS_ITS | Encounter Summary ---
Author Organization [facility] Address [address] [place] [address] Phone Care Team Providers Care Sheep Rancher Name Role Phone Marita Wetzel DO Primary Care Provider Unava ilable Encounter Details Date Type Department Care Team (Late st Contact Info) Description 01/21/2024 Documentation Only [facility] [address] [place] [phone] Pauline Aguayo [address] [place] [phone] Social History Tobacco Use Types Packs/Day Years [...] Services Of [facility] [address] [place] [address] [place] [phone] 11/03/2024 12:30 PM EDT Scheduled Only [facility] Access [place] [address] [place] [phone] documented as of this encounter Visit Diagnoses Not on filedocumented in this encounter Care Teams Sheep Rancher Relationship Specialty Start Date End Date Marita Wetzel DO [address] [place] [address] PCP - General Family Medicine 11/14/22 documented as of this encounter
--- OUTSIDE RECORDS SUMMARY | 2024-09-01 15:40 | XMS_ITS | Encounter Summary ---
Author Organization [facility] Address [address] [place] [address] Care Team Providers Care Immigration Lawyer Name Role Phone Marita Wetzel DO Primary Care Provider +1- [phone] Encounter Details Date Type Department Care Team (Late st Contact Info) Description 05/31/2024 Lab Requisition [facility] - Main Lab [address] [facility] [employer] [place] [phone] Marily Gordillo MD [address] [place] [address] Acute kidney failure, unspecified (CMS/HCC [...] unspecified documented in this encounter Care Teams Immigration Lawyer Relationship Specialty Start Date End Date Marita Wetzel DO [address] [place], [place] PCP - General 01/09/23 documented as of this encounter
--- OUTSIDE RECORDS SUMMARY | 2024-09-01 15:40 | XMS_ITS | Clinical Summary ---
Author Organization [employer] Address [address] [place] [address] 7 [place] [address] Care Team Providers Care Director Marketing Name Role Phone Damari Marita Primary Care Provider [phone] [phone] Allergies Active Allergy Reactions Criticality Noted Date Comments Codeine Hives High 11/12/2011 Other reaction(s): FAINTING/HIVES Oxycodone 07/30/2022 Oxycodone-Acetaminophen Hives High 10/05/2012 Other reaction(s): Nausea / Vomiting Medications * This document contains information received from the source organization and may not represent a complete record from that organization. Continuous Blood Gluc Quality Control Operator (Symphony Dynamo Seema 2 [place]) device 3 Active dorzolamide-awa lol (Cosopt) 22.3-6.8 [...] Blood Gluc Sensor (FreeStyle Seema 2 Sensor) [facility] Use as directed Active mycophenolate (Myfortic) 360 [...] mouth 4 times daily. 4 Active Procrit 50340 UNIT/ML injection 4 Active insulin glargine (Lantus [...] Department Care Team Description 08/24/2024 Orders Only [facility] External Provider, [facility] 08/20/2024 Telephone [facility] [address] [place] [address] Marita Wetzel, No Show 07/21/2024 Refill [facility] [address] [place] [address] Marita Wetzel, 07/19/[address] [address] Marita Wetzel, Results 07/06/[address] [place] [address] Marita Wetzel, Medication Question 07/01/2024 Orders Only [facility]TERNAL DATA DEPARTMENT Provider, Generic External Data 06/25/[address] [place] [address] Marita Wetzel, Nurse Triage 06/25/[address] [place] [address] Marita Wetzel, Med Refill 06/22/[address] [place] [address] Marita Wetzel, Medication Question 06/17/[address] [address] Marita Wetzel, 06/11/2024 Patient Outreach [address] [address] Marita Wetzel, Transition Of Care (Tcm) (HDF unscheduled) 06/11/[address] [place] [address] Marita Wetzel, Hospital Follow-up from Last 3 Months Immunizations Immunization Administration Dates Next Due Hep B, adult [...] disease, without long-term current use of insulin ([facility]) LIPID PANEL, STANDARD Routine 10/06/2023 BI [...] EDT Narrative 08/24/2024 12:03 PM EDT ? [facility] ?[address] ?[place] [address] ?XRay Report ? Signed ? Patient: West,Alix B ?MR#: [id number] ?? 43 ? : 1960 ?Acct:[id number] ? Age/Sex: 64 / F ?ADM Date: 05/06/25 ? Loc: HO.XRAY ? Attending Dr: KIM VILLANUEVA MD ? Ordering Physician: Kim Villanueva MD ?? Date of Service: 08/24/24 ?? Procedure(s): XR chest 2V ?? Accession Number(s): [id number] ? cc: Kim Villanueva MD; Marita Wetzel [...] DD/ 1139 ? TD/TT: 08/24/24 1149 ? Project Manager/Team Coach: ? Procedure Note Delvis Grant - 08/24/[address] [address] XRay Report Signed Patient: Alix Sharp BMR#: [id number] 43 : 1Acct:[id number] Age/Sex: 64 / FADM Date: 08/24/24 Loc: [facility] Attending Dr: KIM VILLANUEVA MD Ordering Physician: Kim Villanueva MD Date of Service: 08/24/24 Procedure(s): XR chest 2V Accession Number(s): [id number] cc: Kim Villanueva MD; Marita Wetzel DO EXAMINATION: XR CHEST CLINICAL INFORMATION: A43.9 - Nocardiosis, unspecified COMPARISON: July 07, 2024. TECHNIQUE: 2 views of the chest were obtained. FINDINGS: Meniscal shaped opacity right lower hemithorax. Pulmonary reticular pattern. Patchy opacities, right lung. No pneumothorax. Cardiomediastinal silhouette size is prominent, unchanged. Right-sided Port-A-Cath remains at the [facility]. Calcified plaque aortic arch. Multilevel mild thoracic and upper lumbar spondylosis. XR/XR chest 2V IMPRESSION: Airspace disease, right lung and moderate to large volume right-sided pleural effusion. Right-sided empyema versus loculated effusion cannot be excluded.. Overall slight improved aeration since prior exam. Cardiomegaly versus pericardial effusion. Electronically signed by: Zay Claixto MD 08/24/2024 12:00 PM EDT RP Dictated By: Zay Urena MD Signed By: <Electronically signed by Zay Holloway MDin OV> 08/24/24 1200 DD/ 1139 TD/TT: 08/24/24 1149 Project Manager/Team Coach: [facility] External Provider IMG XR PROCEDURES Final Result * XR Chest 1 View (06/04/2024 5:19 AM EST) Anatomical Region Laterality Modality Chest Radiographic Lily ging 06/04/2024 5:19 AM EST Narrative 06/04/2024 5:20 AM EST ? [facility] ?[address] ?[place] [address] ?XRay Report ? Signed ? Patient: West,Alix B ?MR#: [id number] ?? 43 ? : 1960 ?Acct:[id number] ? Age/Sex: 64 / F ?ADM Date: 02/07/25 ? Loc: HO.IMC ?477-1 ? Attending Dr: Malik Orozco MD ? Ordering Physician: Nirav Osborn MD ?? Date of Service: 06/03/24 ?? Procedure(s): XR chest 1V ?? Accession Number(s): [id number] ? cc: Marita Wetzel DO; Nirav Osborn [...] ? DD/ 8 ? TD/TT: 06/04/245[address] ? Project Manager/Team Coach: ? Procedure Note Juanita, Image - 06/04/2024 [place] [address] XRay Report Signed Patient: Alix Sharp BMR#: [id number] 43 : 1960cct:[id number] Age/Sex: 64 / FADM Date: 05/28/24 Loc: [facility] 477-[address]: Malik Orozco MD Ordering Physician: Nirav Osborn MD Date of Service: 06/03/24 Procedure(s): XR chest 1V Accession Number(s): [id number] cc: Marita Wetzel DO; Nirav Osborn MD [...] in OV> 06/04/24519 DD/ 8 TD/TT: 06/04/24518 Project Manager/Team Coach: [facility] External Provider IMG XR PROCEDURES Final Result * POCT HGB A1C (12/09/2023 9:43 AM EDT) Pathologist [facility] Hemoglobin A1C 5.9 4.0 - 6.0 % QC Media Lot # [id number] Lot# Expiration Date ,026 Blood 12/09/2023 9:43 AM EDT Marita Wetzel DO POINT OF CARE TEST ENTER/HUMBERTO T ORDERABLES Final Result * (ABNORMAL) Lipid Panel, Standard (10/06/2023) Pathologist [facility] Triglycerides 157 40 - 160 mg/dL [...] EDT Narrative 08/03/2023 8:29 PM EDT ? [facility] ? [address] [facility] ?[place] [address] ? Mammography Report ? Signed ? Patient: West Batista,Alix F ?MR#: ?? [id number] ? : 1960 ?Acct:[id number] ? Age/Sex: 63 / F ?ADM Date: 03/28/24 ? Loc: HO.MAMMO ? Attending Philipp Wetzel DO ? Ordering Physician: Jurcsak,Marita A DO ?Results: 2B ?? enign Findings ? Date of Service: 07/17/23 ?Follow Up: 1 Year From Orig ?? inal Mammogram ? Procedure(s): MM tomosynthesis screening BI ?? Accession Number(s): [id number] ? cc: Marita Wetzel DO ? EXAMINATION: [...] 08/03/232024 ? DD/ 44 ? TD/TT: ? Project Manager/Team Coach: ? Procedure Note Donotuseinterpreter, Image - 08/03/2023 [facility] [address] [place], [place] [address] Mammography Report Signed Patient: Alix Dennis FMR#: [id number] : 1Acct:[id number] Age/Sex: 63 / FADM Date: 07/17/23 Loc: HO.MAMMO Attending Dr: Marita Wetzel DO Ordering Physician: Marita Wetzelults: 2B enign Findings Date of Service: 07/17/23Follow Up: 1 Year From Orig inal Mammogram Procedure(s): MM tomosynthesis screening BI Accession Number(s): [id number] cc: Marita Wetzel DO EXAMINATION: MM SCREENING [...] MD in OV> 08/03/232024 DD/ 104 TD/TT: Project Manager/Team Coach: Marita Wetzel DO IMG BI PROCEDURES Edited Res ult - Final * Hm Pap Smear (08/12/2018) Pap Negative for intraephithelial lesion or malignancy Negative for intraephithelial lesion or malignancy, Other HPV Undetected Undetected, Indeterminate, Quantitative, Not Detected Historical Provider MD HEALTH MAINTENANCE Final Result from Last 3 Months or Most Recently Relevant to Health Maintenance Insurance MEDICARE [employer] Care Teams Director Marketing Relationship Specialty Start Date End Date Marita Wetzel DO [address] [place] [address] PCP - General Family Medicine 04/21/18 [facility] 05/22/24
--- OUTSIDE RECORDS SUMMARY | 2024-09-01 15:40 | XMS_ITS | Encounter Summary ---
Author Organization [facility] Address [address] [place] [address] Care Team Providers Care Emergency Vehicle Operator Name Role Phone Marita Wetzel DO Primary Care Provider +1- [phone] Encounter Details Date Type Department Care Team (Late st Contact Info) Description 05/12/2024 Lab Requisition [facility] - Main Lab [address] [facility] [place] [phone] Marily Gordillo MD [address] [place] [address] Chronic kidney disease, unspecified; Anemia, [...] unspecified documented in this encounter Care Teams Emergency Vehicle Operator Relationship Specialty Start Date End Date Marita Wetzel DO [address] [place] [address] PCP - General 01/09/23 documented as of this encounter
--- OUTSIDE RECORDS SUMMARY | 2024-09-01 15:40 | XMS_ITS | Encounter Summary ---
Author Organization [facility] Address [address] [place] [address] Phone Care Team Providers Care Wastewater Supervisor Name Role Phone Marita Wetzel DO Primary Care Provider Unava ilable Encounter Details Date Type Department Care Team (Late st Contact Info) Description 07/04/2023 Documentation Only [facility] [address] [place] [phone] Pauline Aguayo [address] [place] [phone] Social History Tobacco Use Types Packs/Day Years [...] Services Of [facility] Vascular Access Center [address] [place] [phone] 11/03/2024 12:30 PM EDT Scheduled Only [facility] V[facility] Access Center [address] [place] [address] documented as of this encounter Visit Diagnoses Not on filedocumented in this encounter Care Teams Wastewater Supervisor Relationship Specialty Start Date End Date Marita Wetzel DO [address] [place] [address] PCP - General Family Medicine 11/14/22 documented as of this encounter
--- OUTSIDE RECORDS SUMMARY | 2024-09-01 15:40 | XMS_ITS | Encounter Summary ---
Author Organization [facility] Address [address] [place] [address] Phone Care Team Providers Care Purification Operator Name Role Phone Marita Wetzel DO Primary Care Provider Unava ilable Encounter Details Date Type Department Care Team (Late st Contact Info) Description 12/09/2022 Documentation Only [facility] [address] [phone] Candace Adam PA Social History Tobacco Use [...] Support [facility] Of [facility] Vascular Access Center [address] [address] 11/03/2024 12:30 PM EDT Scheduled Only [facility] Vascular Access [place] [address] [place] [phone] documented as of this encounter Visit Diagnoses Not on filedocumented in this encounter Care Teams Purification Operator Relationship Specialty Start Date End Date Marita Wetzel DO [address] [place] [address] PCP - General Family Medicine 11/14/22 documented as of this encounter
--- OUTSIDE RECORDS SUMMARY | 2024-09-01 15:40 | XMS_ITS | Encounter Summary ---
Author Organization [facility] Address [address] [place] [address] Care Team Providers Care Review Scheduling Coordinator Name Role Phone Marita Wetzel DO Primary Care Provider +1- [phone] Encounter Details Date Type Department Care Team (Late st Contact Info) Description 05/30/2024 Lab Requisition [facility] - Main Lab [address] [facility] [place] [phone] Marily Gordillo MD [address] [place] [phone] Chronic embolism and thrombosis of unspecified vein; [...] unspecified documented in this encounter Care Teams Review Scheduling Coordinator Relationship Specialty Start Date End Date Marita Wetzel DO [address] [place], [place] PCP - General 01/09/23 documented as of this encounter
--- OUTSIDE RECORDS SUMMARY | 2024-09-01 15:40 | XMS_ITS | Encounter Summary ---
Author Organization [facility] Address [address] [place] [address] Care Team Providers Care Or Assistant Name Role Phone Marita Wetzel DO Primary Care Provider +1- [phone] Encounter Details Date Type Department Care Team (Late st Contact Info) Description 2024 Lab Requisition [facility] - Main Lab [address] [facility] [employer] [place] [phone] Marily Gordillo MD [address] [place] [address] Chronic kidney disease, unspecified; Anemia, [...] unspecified documented in this encounter Care Teams Or Assistant Relationship Specialty Start Date End Date Marita Wetzel DO [address] [place] [address] PCP - General 01/09/23 documented as of this encounter
--- OUTSIDE RECORDS SUMMARY | 2024-09-01 15:40 | XMS_ITS | Encounter Summary ---
Author Organization [facility] Address [address] [place] [address] Phone Care Team Providers Care Medical Billing And Coding Instructor Name Role Phone Marita Wetzel DO Primary Care Provider Unava ilable Encounter Details Date Type Department Care Team (Late st Contact Info) Description 08/28/2023 Documentation Only [facility] Of [address] [place] [phone] [place], [place], [place] [address] [place] [phone] Social History Tobacco Use Types Packs/Day Years [...] Support [facility] Vascular Access Center [address] [place] [place] [phone] 11/03/2024 12:30 PM EDT Scheduled Only [facility] Vascular Access [place] [address] [place] [phone] documented as of this encounter Visit Diagnoses Not on filedocumented in this encounter Care Teams Medical Billing And Coding Instructor Relationship Specialty Start Date End Date Marita Wetzel DO [address] [place] [address] PCP - General Family Medicine 11/14/22 documented as of this encounter
--- OUTSIDE RECORDS SUMMARY | 2024-09-01 15:40 | XMS_ITS | Encounter Summary ---
Author Organization [facility] Address [address] [place] [address] Care Team Providers Care Endoscopy Technician Name Role Phone Marita Wetzel DO Primary Care Provider +1- [phone] Encounter Details Date Type Department Care Team (Late st Contact Info) Description 04/28/2024 Lab Requisition [facility] - Main Lab [address] [facility] [place] [place] [phone] Marily Gordillo MD [address] [place] [address] Chronic kidney disease, unspecified; Anemia, [...] unspecified documented in this encounter Care Teams Endoscopy Technician Relationship Specialty Start Date End Date Marita Wetezl DO [address] [place] [address] PCP - General 01/09/23 documented as of this encounter
--- OUTSIDE RECORDS SUMMARY | 2024-09-01 15:40 | XMS_ITS | Encounter Summary ---
Author Organization [employer] Address [address] [facility] [address] [place] [address] Care Team Providers Care Application Operations Engineer Name Role Phone Marita Wetzel DO Primary Care Provider + [phone] Reason for Visit * Reason Onset Date Comments Hospital Follow-up 06/11/2024 Encounter Details Date Type Department Care Team ([facility] st Contact Info) Description 06/11/2024 Telephone [facility] [address] [place] [address] Marita Wetzel DO [address] [place] [address] Hospital Follow-up Social History Tobacco Use Types [...] from pt requesting a HDF appt. [facility] [facility] Date of admission: 05/31/2024 Discharge date: ------ Diagnosed:kidney failure *Send message to [facility] Clinical Care Coordinators documented in this encounter [...] documented as of this encounter Care Teams Application Operations Engineer Relationship Specialty Start Date End Date Marita Wetzel DO [address] [place] [address] PCP - General Family Medicine 04/21/18 [facility] 2/1/25 documented as of this encounter
--- OUTSIDE RECORDS SUMMARY | 2024-09-01 15:40 | XMS_ITS | Encounter Summary ---
Author Organization [facility] Address [address] [place] [address] Care Team Providers Care Greens Picker Name Role Phone Marita Wetzel Primary Care Provider +1- [phone] Encounter Details Date Type Department Care Team (Late st Contact Info) Description 04/30/2024 Lab Requisition [facility] - Main Lab [address] [place] [phone] Marily Gordillo MD [address] [place] [address] Chronic embolism and thrombosis of [...] LAB CHEMISTRY METHOD 05/03/2024 10:39 AM EST [facility] Potassium 5.1 3.5 - 5.5 mmol/L LAB CHEMISTRY METHOD 05/03/2024 10:39 AM [facility] Chloride 99 96 - 110 mmol/L LAB CHEMISTRY METHOD 05/03/2024 10:39 AM [facility] CO2 28 21 - 32 mmol/L LAB CHEMISTRY METHOD 05/03/2024 10:39 AM [facility] Anion Gap 7 3 - 11 LAB CHEMISTRY METHOD 05/03/2024 10:39 AM [facility] Glucose 133(H) 70 - 100 mg/dL LAB CHEMISTRY METHOD 05/03/2024 10:39 AM [facility] BUN 40(H) 5 - 25 mg/dL LAB CHEMISTRY METHOD 05/03/2024 10:39 AM [facility] Creatinine 3.27(H) 0.50 - 1.10 mg/dL LAB CHEMISTRY METHOD 05/03/2024 10:39 AM [facility] eGFR 15(L) >=60 mL/min/1. 73m2 LAB CHEMISTRY METHOD 05/03/2024 10:39 AM [facility] Comment:Calculation based on the??Chronic Kidney Disease Epidemiology Collaboration (CKD-EPI) equation refit??without adjustment for race. BUN/Creatinine Ratio 12.2 LAB CHEMISTRY METHOD 05/03/2024 10:39 AM [facility] Albumin 2.1(L) 3.2 - 5.0 g/dL LAB CHEMISTRY METHOD 05/03/2024 10:39 AM [facility] Calcium 8.6 8.5 - 10.5 mg/dL LAB CHEMISTRY METHOD 05/03/2024 10:39 AM [facility] Phosphorus 1.8(L) 2.5 - 4.5 mg/dL LAB CHEMISTRY METHOD 05/03/2024 10:39 AM [facility] Blood Venous blood specimen / Unknown Venipuncture / Unknown 05/03/2024 6:09 AM EST 05/03/2024 9:28 AM EST us Marily Gordillo MD LAB BLOOD ORDERABLES Final Resul t ABHILASH [place] ([facility]) [facility] [address] [place] [address], * Tacrolimus level (05/03/2024 6:09 AM EST) [...] [facility], [address], [place], [place] [address] ? [phone] Ashtyn Leigh MD, PhD - Supervisor Special Effects Blood Venous blood specimen / Unknown Venipuncture / Unknown 05/03/2024 6:09 AM EST 05/03/2024 9:28 AM EST us Marily Gordillo MD LAB BLOOD ORDERABLES Final Resul t [facility] [address] [place] [address] documented in this encounter Visit Diagnoses Diagnosis Chronic embolism and thrombosis of unspecified vein Acute kidney failure, unspecified (CMS/HCC V24) Acute kidney failure, unspecified documented in this encounter Care Teams Greens Picker Relationship Specialty Start Date End Date Marita Wetzel DO [address] [place] [address] PCP - General 01/09/23 documented as of this encounter
--- OUTSIDE RECORDS SUMMARY | 2024-09-01 15:40 | XMS_ITS | Encounter Summary ---
Author Organization [facility] Address [address] [place] [address] Phone Care Team Providers Care Rn Utilization Management Um Name Role Phone Marita Wetzel DO Primary Care Provider Unava ilable Encounter Details Date Type Department Care Team (Late st Contact Info) Description 01/01/2024 Documentation Only [facility] [address] [place] [address] [place], [place], [place] [address] [place] [phone] Social History Tobacco Use Types Packs/Day Years [...] [facility] Vascular Access Center [address] [place] [phone] 11/03/2024 12:30 PM EDT Scheduled Only [facility] Vascular Access [place] [address] [place] [address] documented as of this encounter Visit Diagnoses Not on filedocumented in this encounter Care Teams Rn Utilization Management Um Relationship Specialty Start Date End Date Marita Wetzel DO [address] [place] [address] PCP - General Family Medicine 11/14/22 documented as of this encounter
--- OUTSIDE RECORDS SUMMARY | 2024-09-01 15:40 | XMS_ITS | Encounter Summary ---
Author Organization [facility] Address [address] [place] [address] Phone Care Team Providers Care Rocket Engine Component Mechanic Name Role Phone Marita Wetzel DO Primary Care Provider Unava ilable Encounter Details Date Type Department Care Team (Late st Contact Info) Description 06/23/2023 Documentation Only [facility] Of [address] [place] [phone] [place], [place] [address] [place] [phone] Social History Tobacco Use Types Packs/Day Years [...] Support [facility] Vascular Access Center [address] [place] [phone] 11/03/2024 12:30 PM EDT Scheduled Only [facility] Vascular Access Center [address] [place] [place] [address] documented as of this encounter Visit Diagnoses Not on filedocumented in this encounter Care Teams Rocket Engine Component Mechanic Relationship Specialty Start Date End Date Marita Wetzel DO [address] [place] [address] PCP - General Family Medicine 11/14/22 documented as of this encounter
--- OUTSIDE RECORDS SUMMARY | 2024-09-01 15:40 | XMS_ITS | Encounter Summary ---
Author Organization [facility] Address [address] [place] [address] Phone Care Team Providers Care Insulation Engineman Name Role Phone Marita Wetzel DO Primary Care Provider Unava ilable Encounter Details Date Type Department Care Team (Late st Contact Info) Description 04/13/2024 Documentation Only [facility] [address] [place] [address] [place], [place], [place] [address] [place] [phone] Social History Tobacco Use Types Packs/Day Years [...] Support [facility] Vascular Access Center [address] [phone] 11/03/2024 12:30 PM EDT Scheduled Only [facility] Vascular Access [place] [address] [place] [address] documented as of this encounter Visit Diagnoses Not on filedocumented in this encounter Care Teams Insulation Engineman Relationship Specialty Start Date End Date Marita Wetzel DO [address] [place] [address] PCP - General Family Medicine 11/14/22 documented as of this encounter
--- OUTSIDE RECORDS SUMMARY | 2024-09-01 15:40 | XMS_ITS | Encounter Summary ---
Author Organization [facility] Address [address] [place] [address] Care Team Providers Care Supervisor Beam Department Name Role Phone Marita Wetzel DO Primary Care Provider +1- [phone] Encounter Details Date Type Department Care Team (Late st Contact Info) Description 04/28/2024 Lab Requisition [facility] - Main Lab [address] [facility] [place] [phone] Marily Gordillo MD [address] [place] [address] Chronic kidney disease, unspecified; Anemia, [...] documented in this encounter Care Teams Supervisor Beam Department Relationship Specialty Start Date End Date Marita Wetzel DO [address] [place] [address] PCP - General 01/09/23 documented as of this encounter
--- OUTSIDE RECORDS SUMMARY | 2024-09-01 15:40 | XMS_ITS | Encounter Summary ---
Author Organization [facility] Address [address] [place] [address] Care Team Providers Care Home Health Clinical Liaison Name Role Phone Marita Wetzel DO Primary Care Provider +1- [phone] Encounter Details Date Type Department Care Team (Late st Contact Info) Description 05/15/2024 Lab Requisition [facility] - Main Lab [address] [facility] [place] [phone] Marily Gordillo MD [address] [place] [phone] Chronic embolism and thrombosis of unspecified vein; [...] unspecified documented in this encounter Care Teams Home Health Clinical Liaison Relationship Specialty Start Date End Date Marita Wetzel DO [address] [place], [place] PCP - General 01/09/23 documented as of this encounter
--- OUTSIDE RECORDS SUMMARY | 2024-09-01 15:40 | XMS_ITS | Encounter Summary ---
Author Organization [facility] Address [address] [place] [address] Phone Care Team Providers Care Diesel Truck Driver Name Role Phone Marita Wetzel DO Primary Care Provider Unava ilable Encounter Details Date Type Department Care Team (Late st Contact Info) Description 12/06/2022 Documentation Only [facility] [address] [place] [phone] [place], [place] [address] [place] [phone] Social History Tobacco Use Types Packs/Day Years [...] [facility] [address] [place] [phone] 11/03/2024 12:30 PM EDT Scheduled Only [facility] [address] [place] [phone] documented as of this encounter Visit Diagnoses Not on filedocumented in this encounter Care Teams Diesel Truck Driver Relationship Specialty Start Date End Date Marita Wetzel DO [address] [place] [address] PCP - General Family Medicine 11/14/22 documented as of this encounter
--- OUTSIDE RECORDS SUMMARY | 2024-09-01 15:40 | XMS_ITS | Encounter Summary ---
Author Organization [facility] Address [address] [place] [address] Care Team Providers Care Surgery Technician Name Role Phone Marita Wetzel Primary Care Provider +1- [phone] Encounter Details Date Type Department Care Team (Late st Contact Info) Description 04/17/2024 Lab Requisition [facility] - Main Lab [address] [facility] [place] [address] Catalina Burr MD [address] [place] [address] End stage renal disease (CMS/HCC V24, CMS/HCC [...] Test performed at [facility], [address] [place], [place] ??[address] ? [phone] Ashtyn Leigh MD, PhD - Customer Relations Assistant Blood Venous blood specimen / Unknown Venipuncture / Unknown 04/17/2024 5:33 AM EST 04/17/2024 9:33 AM EST us Catalina Burr MD LAB BLOOD ORDERABLES Final Resul t [facility] [address] [place] [address] * (ABNORMAL) Reticulocyte count (04/17/2024 5:33 AM EST) Retic Ct Abs 0.050 0.030 - 0.090 M/mcL LAB HEMETOLOGY METHOD 04/17/2024 10:42 AM EST [facility] LAB Retic Ct Pct 1.8(H) 0.7 - 1.7 % LAB HEMETOLOGY METHOD 04/17/2024 10:42 AM [facility] Immature Retic Fract 24.7(H) 2.3 - 15.9 % LAB HEMETOLOGY METHOD 04/17/2024 10:42 AM [facility] Reticulocyte Hemoglobin 28.3(L) >29.0 pcg LAB HEMETOLOGY METHOD 04/17/2024 10:42 AM [facility] Blood Venous blood specimen / Unknown Venipuncture / Unknown 04/17/2024 5:33 AM EST 04/17/2024 9:33 AM EST us Catalina Burr MD LAB BLOOD ORDERABLES Final Resul t [facility] [address] [place] [address], [place] [phone] * (ABNORMAL) Comprehensive metabolic panel (04/17/2024 5:33 AM EST) Sodium 146(H) 133 - 145 mmol/L LAB CHEMISTRY METHOD 04/17/2024 11:02 AM [facility] Potassium 3.4(L) 3.5 - 5.5 mmol/L LAB CHEMISTRY METHOD 04/17/2024 11:02 AM [facility] Chloride 116(H) 96 - 110 mmol/L LAB CHEMISTRY METHOD 04/17/2024 11:02 AM [facility] CO2 21 21 - 32 mmol/L LAB CHEMISTRY METHOD 04/17/2024 11:02 AM [facility] Anion Gap 9 3 - 11 LAB CHEMISTRY METHOD 04/17/2024 11:02 AM [facility] Glucose 61(L) 70 - 100 mg/dL LAB CHEMISTRY METHOD 04/17/2024 11:02 AM [facility] BUN 48(H) 5 - 25 mg/dL LAB CHEMISTRY METHOD 04/17/2024 11:02 AM [facility] Creatinine 3.71(H) 0.50 - 1.10 mg/dL LAB CHEMISTRY METHOD 04/17/2024 11:02 AM [facility] eGFR 13(L) >=60 mL/min/1. 73m2 LAB CHEMISTRY METHOD 04/17/2024 11:02 AM [facility] Comment:Calculation based on the??Chronic Kidney Disease Epidemiology Collaboration (CKD-EPI) equation refit??without adjustment for race. BUN/Creatinine Ratio 12.9 LAB CHEMISTRY METHOD 04/17/2024 11:02 AM [facility] Calcium 8.7 8.5 - 10.5 mg/dL LAB CHEMISTRY METHOD 04/17/2024 11:02 AM [facility] AST (SGOT) 8(L) 10 - 42 unit/L LAB CHEMISTRY METHOD 04/17/2024 11:02 AM [facility] ALT (SGPT) 9(L) 10 - 60 unit/L LAB CHEMISTRY METHOD 04/17/2024 11:02 AM [facility] Alkaline Phosphatase 61 42 - 121 unit/L LAB CHEMISTRY METHOD 04/17/2024 11:02 AM [facility] Total Protein 5.6(L) 6.0 - 8.0 g/dL LAB CHEMISTRY METHOD 04/17/2024 11:02 AM [facility] Albumin 2.0(L) 3.2 - 5.0 g/dL LAB CHEMISTRY METHOD 04/17/2024 11:02 AM [facility] Total Bilirubin 0.5 0.0 - 1.4 mg/dL LAB CHEMISTRY METHOD 04/17/2024 11:02 AM [facility] Blood Venous blood specimen / Unknown Venipuncture / Unknown 04/17/2024 5:33 AM EST 04/17/2024 9:33 AM EST Catalina Burr MD LAB BLOOD ORDERABLES Final Resul t [facility] [address] [place] [address], * (ABNORMAL) Complete blood count (04/17/2024 5:33 AM EST) WBC 9.3 4.8 - 10.8 K/mcL LAB HEMETOLOGY METHOD 04/17/2024 10:42 AM [facility] RBC 3.10(L) 3.80 - 4.80 M/mcL LAB HEMETOLOGY METHOD 04/17/2024 10:42 AM [facility] Hemoglobin 8.3(L) 11.5 - 16.0 g/dL LAB HEMETOLOGY METHOD 04/17/2024 10:42 AM [facility] Hematocrit 30.3(L) 35.0 - 47.0 % LAB HEMETOLOGY METHOD 04/17/2024 10:42 AM [facility] MCV 98.1(H) 79.0 - 98.0 FL LAB HEMETOLOGY METHOD 04/17/2024 10:42 AM [facility] MCH 26.9(L) 27.0 - 32.0 pcg LAB HEMETOLOGY METHOD 04/17/2024 10:42 AM EST [facility] MCHC 27.4(L) 32.0 - 37.0 g/dL LAB HEMETOLOGY METHOD 04/17/2024 10:42 AM [facility] RDW 16.9(H) 11.0 - 15.0 % LAB HEMETOLOGY METHOD 04/17/2024 10:42 AM [facility] Platelets 206 130 - 400 K/mcL LAB HEMETOLOGY METHOD 04/17/2024 10:42 AM [facility] MPV 10.1 7.0 - 11.0 FL LAB HEMETOLOGY METHOD 04/17/2024 10:42 AM [facility] NRBC 0.0 <1.0 % LAB HEMETOLOGY METHOD 04/17/2024 10:42 AM [facility] NRBC Absolute 0.00 <0.10 K/mcL LAB HEMETOLOGY METHOD 04/17/2024 10:42 AM [facility] Blood Venous blood specimen / Unknown Venipuncture / Unknown 04/17/2024 5:33 AM EST 04/17/2024 9:33 AM EST us Catalina Burr MD LAB BLOOD ORDERABLES Final Resul t [facility] [address] [place] [address], [place] [phone] documented in this encounter Visit Diagnoses Diagnosis End stage renal disease (CMS/HCC V24, CMS/HCC V28) End stage renal disease Anemia, unspecified documented in this encounter Care Teams Surgery Technician Relationship Specialty Start Date End Date Marita Wetzel DO [address] [place] [address] PCP - General 01/09/23 documented as of this encounter
--- OUTSIDE RECORDS SUMMARY | 2024-09-01 15:40 | XMS_ITS | Encounter Summary ---
Author Organization [facility] Address [address] [place] [address] Phone Care Team Providers Care Career Education Teacher Name Role Phone Marita Wetzel DO Primary Care Provider Unava ilable Encounter Details Date Type Department Care Team (Late st Contact Info) Description 04/17/2024 Documentation Only [facility] [address] [place] [address] [place], [place], [place] [address] [place] [phone] Social History Tobacco Use Types Packs/Day Years [...] Support [facility] Center [address] [place] [phone] 11/03/2024 12:30 PM EDT Scheduled Only [facility] Access [place] [address] [place] [phone] documented as of this encounter Visit Diagnoses Not on filedocumented in this encounter Care Teams Career Education Teacher Relationship Specialty Start Date End Date Marita Wetzel DO [address] [place] [address] PCP - General Family Medicine 11/14/22 documented as of this encounter
--- OUTSIDE RECORDS SUMMARY | 2024-09-01 15:40 | XMS_ITS | Encounter Summary ---
Author Organization [facility] Address [address] [place] [address] Phone Care Team Providers Care Advertising Operations Coordinator Name Role Phone Marita Wetzel DO Primary Care Provider Unava ilable Encounter Details Date Type Department Care Team (Late st Contact Info) Description 11/11/2022 Documentation Only [facility] [address] [place] [phone] Pauline Aguayo [address] [place] [phone] Social History Tobacco Use Types Packs/Day Years [...] Support [facility] [address] [place] [address] 11/03/2024 12:30 PM EDT Scheduled Only [facility] [address] [place] [phone] documented as of this encounter Visit Diagnoses Not on filedocumented in this encounter Care Teams Advertising Operations Coordinator Relationship Specialty Start Date End Date Marita Wetzel DO [address] [place] [address] PCP - General Family Medicine 11/14/22 documented as of this encounter
--- OUTSIDE RECORDS SUMMARY | 2024-09-01 15:40 | XMS_ITS | Encounter Summary ---
Author Organization [facility] Address [address] [place] [address] Care Team Providers Care Honing Machine Set Up Operator Tool Name Role Phone Marita Wetzel DO Primary Care Provider +1- [phone] Encounter Details Date Type Department Care Team (Late st Contact Info) Description 04/10/2024 Lab Requisition [facility] - Main Lab [address] [facility] [place] [phone] Marily Gordillo MD [address] [place] [phone] Chronic embolism and thrombosis of unspecified vein; [...] unspecified documented in this encounter Care Teams Honing Machine Set Up Operator Tool Relationship Specialty Start Date End Date Marita Wetzel DO [address] [place], [place] PCP - General 01/09/23 documented as of this encounter
--- OUTSIDE RECORDS SUMMARY | 2024-09-01 15:40 | XMS_ITS | Encounter Summary ---
Author Organization [facility] Address [address] [place] [address] Phone Care Team Providers Care Merchant Miller Name Role Phone Marita Wetzel DO Primary Care Provider Unava ilable Encounter Details Date Type Department Care Team (Late st Contact Info) Description 09/26/2022 Documentation Only [facility] [address] [place] [phone] Candace Adam PA Social History Tobacco Use [...] Support [facility] [address] [place] [address] 11/03/2024 12:30 PM EDT Scheduled Only [facility] V[facility] Access [address] [place] [phone] documented as of this encounter Visit Diagnoses Not on filedocumented in this encounter Care Teams Merchant Miller Relationship Specialty Start Date End Date Marita Wetzel DO [address] [place] [address] PCP - General Family Medicine 11/14/22 documented as of this encounter
--- OUTSIDE RECORDS SUMMARY | 2024-09-01 15:40 | XMS_ITS | Encounter Summary ---
Author Organization [facility] Address [address] [place] [address] Phone Care Team Providers Care Caterpillar Driver Name Role Phone Marita Wetzel DO Primary Care Provider Unava ilable Encounter Details Date Type Department Care Team (Late st Contact Info) Description 08/27/2023 Documentation Only [facility] [address] [place] [phone] [place], [place], [place] [address] [place] [phone] Social History Tobacco Use Types Packs/Day Years [...] [facility] [address] [place] [phone] 11/03/2024 12:30 PM EDT Scheduled Only [facility] V[facility] Access [place] [address] [place] [phone] documented as of this encounter Visit Diagnoses Not on filedocumented in this encounter Care Teams Caterpillar Driver Relationship Specialty Start Date End Date Marita Wetzel DO [address] [place] [address] PCP - General Family Medicine 11/14/22 documented as of this encounter
--- OUTSIDE RECORDS SUMMARY | 2024-09-01 15:40 | XMS_ITS | Clinical Summary ---
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 55160 mL 12 02/10/20 Active predniSONE 5 MG [...] Orders Only [facility] [address] [place] [phone] Srinivas Agrawal MD 08/30/2024 Treatment [facility], [address] [place] [phone] Bernardo Doty MD End stage renal disease; Dependence on renal dialysis 08/25/2024 Orders Only [facility] [address] [address] Srinivas Agrawal MD 08/23/2024 Orders Only [facility] Of [address] [address] Srinivas Agrawal MD 08/23/2024 Treatment [facility] [address] [address] Bernardo Doty MD End stage renal disease; Dependence on renal dialysis 08/19/2024 11:30 AM EDT Clinical Support [facility] [address] [place] [address] [place] [address] Db Neumann MD End stage renal disease (HCC) (Primary Dx); History of renal transplant; Encounter for adjustment and management of vascular catheters 08/19/2024 11:00 AM EDT Office Visit [facility] [address] [place] [address] [place] [address] Jerod Carrillo DO End stage renal disease (HCC) (Primary Dx) 08/18/2024 Orders Only [facility] [address] [address] Srinivas Agrawal MD 08/17/2024 Telephone [facility] [address] [place] [address] [place] [address] Stephany Stevens 08/16/2024 Orders Only [facility] [address] [address] Srinivas Agrawal MD 08/11/2024 Telephone [facility] [address] [place] [address] [place] [address] Hazel Zepeda to schedue port flush 08/06/2024 Orders Only [facility] [address] [address] Srinivas Agrawal MD 08/04/2024 Orders Only [facility] [address] [address] Srinivas Agrawal MD 08/04/2024 Treatment [facility] [place], [address] [place] [phone] Bernardo Doty MD End stage renal disease; Dependence on renal dialysis 08/04/2024 Documentation Only [facility], - [facility] [address] [place] [address] Curtis Jolynn 08/02/2024 Treatment [facility], [address] [place] [address] Bernardo Doty MD End stage renal disease; Dependence on renal dialysis 07/30/2024 Orders Only [facility] [address] [address] Srinivas Agrawal MD 07/28/2024 Telephone [facility] [place], [facility] V[facility] Center [address] [place] [phone] Hazel Zepeda Attempted to schedule port flush 07/26/2024 Treatment [facility] [place], [address] [place] [address] Bernardo Doty MD End stage renal disease; Dependence on renal dialysis 07/21/2024 Orders Only [facility] [address] [address] Srinivas Agrawal MD 07/21/2024 Treatment [facility] [place], [address] [place] [address] Bernardo Doty MD End stage renal disease; Dependence on renal dialysis 07/19/2024 Orders Only [facility] [address] [address] Srinivas Agrawal MD 07/14/2024 Orders Only [facility] [address] [address] Srinivas Agrawal MD 07/12/2024 Orders Only [facility] [address] [address] Srinivas Agrawal MD 07/09/2024 Orders Only [facility] [address] [address] Srinivas Agrawal MD 07/07/2024 Orders Only [facility] [address] [address] Srinivas Agrawal MD 07/05/2024 Orders Only [facility] [address] [address] Srinivas Agrawal MD 07/05/2024 Treatment [facility] [place], [address] [place] [address] Bernardo Doty MD End stage renal disease; Dependence on renal dialysis 06/30/2024 Refill [facility] [address] [address] Srinivas Agrawal MD 06/28/2024 Treatment [facility] [place], [address] [place] [address] Bernardo Doty MD End stage renal disease; Dependence on renal dialysis 06/25/2024 Telephone [facility] [place] - [facility] [address] [place] [address] Hazel Zepeda VNA RN returned call 06/25/2024 Telephone [facility] - [facility] Center [address] [place] [address] Hazel Zepeda Abx via port 06/23/2024 Treatment [facility] [place], [address] [place] [address] Bernardo Doty MD End stage renal disease; Dependence on renal dialysis 06/23/2024 Orders Only [facility] [place] [address] [place] [address] Srinivas Agrawal MD 06/21/2024 Treatment [facility], [address] [place] [address] Bernardo Doty MD End stage renal disease; Dependence on renal dialysis 06/18/2024 Refill [facility] [address] [place] [phone] Srinivas Agrawal MD 06/10/2024 Telephone [facility] [address] [place] [phone] Hazel Zepeda port flush- pt at [facility] from Last 3 Months Immunizations Immunization Administration [...] Of [facility] [address] [place] [address] [place] [address] 11/03/2024 12:30 PM EDT Scheduled Only [facility] [address] [place] [address] [place] [address] Health Maintenance Due Date Last Done Comments [...] included. Potassium 4.5 3.5 - 5.1 mEq/L [facility] 08/30/2024 08/31/2024 10: 10 AM EDT Narrative [facility] - 08/31/2024 Unless otherwise specified, test(s) performed at: [facility], [address] [place] [address] SCAFFOLDING HELPER: Dwayne Fuentes M.D. For any questions, please call customer service at FREQUENCY:OTHER Resulting Agency Comment Specimen source: Serum Srinivas Agrawal MD LAB BLOOD ORDERABLES Final Result [facility] See order comments or contact performing lab Unknown, [place] * HD KINETICS (08/25/2024) Only the most recent of4 resultswithin the time period is included. % Urea Reduction 70 65 - 80 % [facility] 08/25/2024 08/26/2024 10: 40 AM EDT Narrative Resulting Agency Comment Specimen source: Plasma Srinivas Agrawal MD LAB BLOOD ORDERABLES Final Result [facility] See order comments or contact performing lab Unknown, [place] * POST CHEMISTRY (08/25/2024) Only the most recent of4 resultswithin the time period is included. Pathologist [facility] BUN Post Dialysis 14 6 - 19 mg/dL [facility] 08/25/2024 08/26/2024 10: 40 AM EDT Narrative [facility] - 08/27/2024 Unless otherwise specified, test(s) performed at: [facility], [address] [place] [address] SCAFFOLDING HELPER: Dwayne Fuentes M.D. For any questions, please call customer service at FREQUENCY:OTHER Resulting Agency Comment Specimen source: Plasma Srinivas Agrawal MD LAB BLOOD ORDERABLES Final Result Performing Organization Address City/[facility] Co de Phone Number [facility] See order comments or contact performing lab Unknown, [place] * (ABNORMAL) HEMATOLOGY (08/25/2024) Only the most recent of11 resultswithin the time period is included. [facility] Hemoglobin 8.2(L) 12.0 - 16.0 g/dL [facility] Hemoglobin x 3 24.6(L) 36.0 - 48.0 % [facility] 08/25/2024 08/26/2024 10: 15 AM EDT Narrative [facility] - 08/26/2024 Unless otherwise specified, test(s) performed at: [facility], [address] [place] [address] SCAFFOLDING HELPER: Dwayne Fuentes M.D. For any questions, please call customer service at FREQUENCY:OTHER Resulting Agency Comment Specimen source: Blood Srinivas Agrawal MD LAB BLOOD ORDERABLES Final Result Performing Organization Address City/[facility]/ZIP Co de Phone Number [facility] See order comments or contact performing lab Unknown, [place] * [facility] Results (08/25/2024) Only the most recent of4 resultswithin the time period is included. Pathologist [facility] eNPCR 0.75 [facility] spKt/V (Daugirdas II) 1.40 [facility] eKt/V [facility]ch [facility] eKd[facility]/V 1.18 [facility] nPCR_HD 0.83 [facility] PCR 43.29 [facility] spKt/V Gotch 1.40 [facility] eKt/V ([place]) 1.19 [facility] WSTDKT/V 2.3 [facility] 08/25/2024 08/25/2024 Hemal Ordering Provider LAB BLOOD ORDERABLES Final Result [facility] Contact Performing lab Unknown, [place] * IMMUNO CHEMISTRY (08/04/2024) Only the most recent of3 resultswithin the time period is included. Hep B Surface Ag Negative Negative [facility] 08/04/2024 08/05/2024 8:4 8 AM EDT Narrative Resulting Agency Comment Specimen source: Serum Srinivas Agrawal MD LAB BLOOD ORDERABLES Final Result Performing Organization Address [facility] de Phone Number [facility] See order comments or contact performing lab Unknown, [place] * SPECIAL CHEMISTRY (07/07/2024) Hemoglobin A1C 5.7 4.8 - 5.9 % [facility] 07/07/2024 07/10/2024 11: 15 AM EDT Narrative [facility] - 07/10/2024 Unless otherwise specified, test(s) performed at: [facility], [address] [place] [address] SCAFFOLDING HELPER: Dwayne Fuentes M.D. For any questions, please call customer service at FREQUENCY:MONTHLY Resulting Agency Comment Specimen source: Blood Srinivas Agrawal MD LAB BLOOD BANK TEST ORDERA BLES Final Result Performing Organization Address City/[facility] Co de Phone Number [facility] See order comments or contact performing lab Unknown, [place] from Last 3 Months Insurance [facility] Medicare Medicare [facility] Care Teams Day Care Home Mother Relationship Specialty Start Date End Date Marita Wetzel DO [address] [place] [address] PCP - General Family Medicine 11/14/22
--- OUTSIDE RECORDS SUMMARY | 2024-09-01 15:40 | XMS_ITS | Encounter Summary ---
Author Organization [facility] Address [address] [place] [address] Care Team Providers Care Gift Wrapper Name Role Phone Marita Wetzel DO Primary Care Provider +1- [phone] Encounter Details Date Type Department Care Team (Late st Contact Info) Description 05/21/2024 Lab Requisition [facility] - Main Lab [address] [facility] [place] [phone] Marily Gordillo MD [address] [place] [phone] Chronic embolism and thrombosis of unspecified vein; [...] unspecified documented in this encounter Care Teams Gift Wrapper Relationship Specialty Start Date End Date Marita Wetzel DO [address] [place], [place] PCP - General 01/09/23 documented as of this encounter
--- OUTSIDE RECORDS SUMMARY | 2024-09-01 15:40 | XMS_ITS | Encounter Summary ---
Author Organization [facility] Address [address] [place] [address] Care Team Providers Care Airflight Attendants Supervisor Name Role Phone Marita Wetzel Primary Care Provider +1- [phone] Encounter Details Date Type Department Care Team (Late st Contact Info) Description 04/30/2024 Lab Requisition [facility] - Main Lab [address] [place] [phone] Marily Gordillo MD [address] [place] [phone] Anemia, unspecified; Chronic embolism and thrombosis of [...] LAB CHEMISTRY METHOD 05/03/2024 10:[address] [facility] Blood Venous blood specimen / Unknown Venipuncture / Unknown 05/03/2024 6:09 AM EST 05/03/2024 9:29 AM EST Marily Gordillo MD LAB BLOOD ORDERABLES Final Resul t Performing Organization Address [facility]/ZIP Co de Phone Number [facility] [address] [place] [address], [place] [phone] * (ABNORMAL) Ferritin (05/03/2024 6:09 AM EST) Ferritin 2,737(H) 8 - 252 ng/mL LAB CHEMISTRY METHOD 05/03/2024 10:[address] [facility] Blood Venous blood specimen / Unknown Venipuncture / Unknown 05/03/2024 6:09 AM EST 05/03/2024 9:29 AM EST us Marily Gordillo MD LAB BLOOD ORDERABLES Final Resul t Performing Organization Address City/[facility]/ZIP Co de Phone Number [facility] [address] [place] [address], [place] [phone] documented in this encounter Visit Diagnoses Diagnosis Anemia, unspecified Chronic embolism and thrombosis of unspecified vein Acute kidney failure, unspecified (CMS/HCC V24) Acute kidney failure, unspecified documented in this encounter Care Teams Airflight Attendants Supervisor Relationship Specialty Start Date End Date Marita Wetzel DO [address] [place] [address] PCP - General 01/09/23 documented as of this encounter
--- OUTSIDE RECORDS SUMMARY | 2024-09-01 15:40 | XMS_ITS | Encounter Summary ---
Author Organization [facility] Address [address] [place] [address] Care Team Providers Care Bingo Cashier Name Role Phone Marita Wetzel Primary Care Provider +1- [phone] Encounter Details Date Type Department Care Team (Late st Contact Info) Description 04/17/2024 Lab Requisition [facility] - Main Lab [address] [facility] [place] [phone] Marily Gordillo MD [address] [place] [address] Chronic embolism and thrombosis of [...] Test performed at [facility], [facility] [address], [place], [place] ??[address] ? [phone] Ashtyn Leigh MD, PhD - Cable Tool Driller Blood Venous blood specimen / Unknown Venipuncture / Unknown 04/19/2024 6:21 AM EST 04/19/2024 8:33 AM EST us Marily Gordillo MD LAB BLOOD ORDERABLES Final Resul t [place] [address] * (ABNORMAL) Renal function panel (04/19/2024 6:21 AM EST) Sodium 144 133 - 145 mmol/L LAB CHEMISTRY METHOD 04/19/2024 9:42 AM [facility] Potassium 3.3(L) 3.5 - 5.5 mmol/L LAB CHEMISTRY METHOD 04/19/2024 9:42 AM [facility] Chloride 114(H) 96 - 110 mmol/L LAB CHEMISTRY METHOD 04/19/2024 9:42 AM [facility] CO2 22 21 - 32 mmol/L LAB CHEMISTRY METHOD 04/19/2024 9:42 AM [facility] Anion Gap 8 3 - 11 LAB CHEMISTRY METHOD 04/19/2024 9:42 AM [facility] Glucose 177(H) 70 - 100 mg/dL LAB CHEMISTRY METHOD 04/19/2024 9:42 AM [facility] BUN 42(H) 5 - 25 mg/dL LAB CHEMISTRY METHOD 04/19/2024 9:42 AM [facility] Creatinine 3.65(H) 0.50 - 1.10 mg/dL LAB CHEMISTRY METHOD 04/19/2024 9:42 AM [facility] eGFR 13(L) >=60 mL/min/1. 73m2 LAB CHEMISTRY METHOD 04/19/2024 9:42 AM [facility] Comment:Calculation based on the??Chronic Kidney Disease Epidemiology Collaboration (CKD-EPI) equation refit??without adjustment for race. BUN/Creatinine Ratio 11.5 LAB CHEMISTRY METHOD 04/19/2024 9:42 AM [facility] Albumin 2.0(L) 3.2 - 5.0 g/dL LAB CHEMISTRY METHOD 04/19/2024 9:42 AM EST [facility] Calcium 8.5 8.5 - 10.5 mg/dL LAB CHEMISTRY METHOD 04/19/2024 9:42 AM [facility] Phosphorus 2.6 2.5 - 4.5 mg/dL LAB CHEMISTRY METHOD 04/19/2024 9:42 AM [facility] Blood Venous blood specimen / Unknown Venipuncture / Unknown 04/19/2024 6:21 AM EST 04/19/2024 8:33 AM EST Marily Gordillo MD LAB BLOOD ORDERABLES Final Resul t [facility] [address] [place] [address], * (ABNORMAL) Complete blood count (04/19/2024 6:21 AM EST) WBC 12.0(H) 4.8 - 10.8 K/mcL LAB HEMETOLOGY METHOD 04/19/2024 9:26 AM [facility] RBC 2.80(L) 3.80 - 4.80 M/mcL LAB HEMETOLOGY METHOD 04/19/2024 9:26 AM [facility] Hemoglobin 7.6(L) 11.5 - 16.0 g/dL LAB HEMETOLOGY METHOD 04/19/2024 9:26 AM [facility] Hematocrit 27.3(L) 35.0 - 47.0 % LAB HEMETOLOGY METHOD 04/19/2024 9:26 AM [facility] MCV 98.2(H) 79.0 - 98.0 FL LAB HEMETOLOGY METHOD 04/19/2024 9:26 AM [facility] MCH 27.3 27.0 - 32.0 pcg LAB HEMETOLOGY METHOD 04/19/2024 9:26 AM EST [facility] MCHC 27.8(L) 32.0 - 37.0 g/dL LAB HEMETOLOGY METHOD 04/19/2024 9:26 AM [facility] RDW 16.6(H) 11.0 - 15.0 % LAB HEMETOLOGY METHOD 04/19/2024 9:26 AM [facility] Platelets 230 130 - 400 K/mcL LAB HEMETOLOGY METHOD 04/19/2024 9:26 AM EST [facility] MPV 10.9 7.0 - 11.0 FL LAB HEMETOLOGY METHOD 04/19/2024 9:26 AM [facility] NRBC 0.0 <1.0 % LAB HEMETOLOGY METHOD 04/19/2024 9:26 AM [facility] NRBC Absolute 0.00 <0.10 K/mcL LAB HEMETOLOGY METHOD 04/19/2024 9:26 AM [facility] Blood Venous blood specimen / Unknown Venipuncture / Unknown 04/19/2024 6:21 AM EST 04/19/2024 8:33 AM EST us Marily Gordillo MD LAB BLOOD ORDERABLES Final Resul t [facility] [address] [place] [address], documented in this encounter Visit Diagnoses Diagnosis Chronic embolism and thrombosis of unspecified vein Acute kidney failure, unspecified (CMS/HCC V24) Acute kidney failure, unspecified documented in this encounter Care Teams Bingo Cashier Relationship Specialty Start Date End Date Marita Wetzel DO [address] [place] [address] PCP - General 01/09/23 documented as of this encounter
--- OUTSIDE RECORDS SUMMARY | 2024-09-01 15:40 | XMS_ITS | Encounter Summary ---
Author Organization [facility] Address [address] [place] [address] Care Team Providers Care Master Machinist Name Role Phone Marita Wetzel Primary Care Provider +1- [phone] Encounter Details Date Type Department Care Team (Late st Contact Info) Description 04/23/2024 Lab Requisition [facility] - Main Lab [address] [place] [phone] Marily Gordillo MD [address] [place] [address] Chronic embolism and thrombosis of [...] LAB CHEMISTRY METHOD 04/26/2024 9:11 AM EST [facility] Potassium 3.4(L) 3.5 - 5.5 mmol/L LAB CHEMISTRY METHOD 04/26/2024 9:11 AM EST [facility] Chloride 109 96 - 110 [...] LAB BLOOD ORDERABLES Final Resul t [facility] [address] [place] [address], documented in this encounter Visit Diagnoses Diagnosis Chronic embolism and thrombosis of unspecified vein Acute kidney failure, unspecified (CMS/HCC V24) Acute kidney failure, unspecified documented in this encounter Care Teams Master Machinist Relationship Specialty Start Date End Date Marita Wetzel DO [address] [place] [address] PCP - General 01/09/23 documented as of this encounter
--- OUTSIDE RECORDS SUMMARY | 2024-09-01 15:41 | XMS_ITS | Encounter Summary ---
Author Organization [facility] Address [address] [place] [address] Care Team Providers Care Loading And Unloading Supervisor Name Role Phone Marita Wetzel Primary Care Provider +1- [phone] Encounter Details Date Type Department Care Team (Late st Contact Info) Description 02/25/2024 Lab Requisition [facility] - Main Lab [address] [facility] [place] [address] Catalina Burr MD [address] [place] [address] Chronic embolism and thrombosis of unspecified vein; [...] PHLEBOTOMY FEE Completed 02/25/2024 11:01 AM EST [facility] Blood Venous blood specimen / Unknown Venipuncture / Unknown 02/25/2024 6:30 AM EST 02/25/2024 10:25 AM EST us Catalina Burr MD LAB BLOOD ORDERABLES Final Resul t [facility] [address] [place] [address], * (ABNORMAL) Tacrolimus level (02/25/2024 6:30 AM [...] investigational or for research. Test performed at [facility], [address] , [place], [place] ??[address] ? [phone] Ashtyn Leigh MD, PhD - Corporate Strategy Analyst Blood Venous blood specimen / Unknown Venipuncture / Unknown 02/25/2024 6:30 AM EST 02/25/2024 10:25 AM EST us Catalina Burr MD LAB BLOOD ORDERABLES Final Resul t [facility] [address] [place] [address] documented in this encounter Visit Diagnoses Diagnosis Chronic embolism and thrombosis of unspecified vein Acute kidney failure, unspecified (CMS/HCC V24) Acute kidney failure, unspecified documented in this encounter Care Teams Loading And Unloading Supervisor Relationship Specialty Start Date End Date Marita Wetzel DO [address] [place] [address] PCP - General 01/09/23 documented as of this encounter
--- OUTSIDE RECORDS SUMMARY | 2024-09-01 15:41 | XMS_ITS | Clinical Summary ---
Author Organization [address] Address [address] [place] [address] Phone Care Team Providers Care Communications Associate Name Role Phone Mary JaneMarita yousif Scottie MARROQUIN Primary Care Provider +1- [phone] Immunizations Name Administration Dates Next Due Moderna [...] mmol/L LAB CHEMISTRY METHOD 05/10/2024 11:[address] [facility] Potassium 3.8 3.5 - 5.5 mmol/L LAB CHEMISTRY METHOD 05/10/2024 11:[address] [facility] Chloride 96 96 - 110 mmol/L LAB CHEMISTRY METHOD 05/10/2024 11:[address] [facility] CO2 28 21 - 32 mmol/L LAB CHEMISTRY METHOD 05/10/2024 11:[address] [facility] Anion Gap 11 3 - 11 LAB CHEMISTRY METHOD 05/10/2024 11:[address] [facility] Glucose 215(H) 70 - 100 mg/dL LAB CHEMISTRY METHOD 05/10/2024 11:[address] [facility] BUN 45(H) 5 - 25 mg/dL LAB CHEMISTRY METHOD 05/10/2024 11:[address] [facility] Creatinine 3.47(H) 0.50 - 1.10 mg/dL LAB CHEMISTRY METHOD 05/10/2024 11:[address] [facility] eGFR 14(L) >=60 mL/min/1. 73m2 LAB CHEMISTRY METHOD 05/10/2024 11:[address] [facility] Comment:Calculation based on the??Chronic Kidney Disease Epidemiology Collaboration (CKD-EPI) equation refit??without adjustment for race. BUN/Creatinine Ratio 13.0 LAB CHEMISTRY METHOD 05/10/2024 11:[address] [facility] Albumin 1.7(L) 3.2 - 5.0 g/dL LAB CHEMISTRY METHOD 05/10/2024 11:[address] [facility] Calcium 8.4(L) 8.5 - 10.5 mg/dL LAB CHEMISTRY METHOD 05/10/2024 11:[address] [facility] Phosphorus 2.1(L) 2.5 - 4.5 mg/dL LAB CHEMISTRY METHOD 05/10/2024 11:[address] [facility] Blood Venous blood specimen / Unknown Venipuncture / Unknown 05/10/2024 5:50 AM EST 05/10/2024 9:58 AM EST us Marily Gordillo MD LAB BLOOD ORDERABLES Final Resul t [facility] [address] [place] [address], from Last 3 Months or Most Recently Relevant to Health Maintenance Insurance MEDICARE Care Teams Communications Associate Relationship Specialty Start Date End Date Marita Wetzel DO [address] [place] [address] PCP - General 01/09/23
--- OUTSIDE RECORDS SUMMARY | 2024-09-01 15:41 | XMS_ITS | Encounter Summary ---
Author Organization [facility] Address [address] [place] [address] Care Team Providers Care Rack Loader Name Role Phone Mary JaneMarita yousif Primary Care Provider +1- [phone] Encounter Details Date Type Department Care Team (Late st Contact Info) Description 03/19/2024 Lab Requisition [facility] - Main Lab [address] [facility] [place] [address] Catalina Burr MD [address] [place] [address] Chronic embolism and thrombosis of unspecified vein; [...] research. Test performed at [facility], [address], [place], [place] [address] ? [phone] Ashtyn Leigh MD, PhD - Government Property Inspector Blood Venous blood specimen / Unknown Venipuncture / Unknown 03/22/2024 6:50 AM EST 03/22/2024 8:05 AM EST us Catalina Burr MD LAB BLOOD ORDERABLES Final Resul t [facility] [address] [place] [address] * (ABNORMAL) Renal function panel (03/22/2024 6:50 AM EST) Sodium 138 133 - 145 mmol/L LAB CHEMISTRY METHOD 03/22/2024 8:55 AM [facility] Potassium 4.6 3.5 - 5.5 mmol/L LAB CHEMISTRY METHOD 03/22/2024 8:55 AM [facility] Chloride 107 96 - 110 mmol/L LAB CHEMISTRY METHOD 03/22/2024 8:55 AM [facility] CO2 20(L) 21 - 32 mmol/L LAB CHEMISTRY METHOD 03/22/2024 8:55 AM [facility] Anion Gap 11 3 - 11 LAB CHEMISTRY METHOD 03/22/2024 8:55 AM [facility] Glucose 158(H) 70 - 100 mg/dL LAB CHEMISTRY METHOD 03/22/2024 8:55 AM [facility] BUN 51(H) 5 - 25 mg/dL LAB CHEMISTRY METHOD 03/22/2024 8:55 AM [facility] Creatinine 4.91(H) 0.50 - 1.10 mg/dL LAB CHEMISTRY METHOD 03/22/2024 8:55 AM [facility] eGFR 9(L) >=60 mL/min/1. 73m2 LAB CHEMISTRY METHOD 03/22/2024 8:55 AM [facility] Comment:Calculation based on the??Chronic Kidney Disease Epidemiology Collaboration (CKD-EPI) equation refit??without adjustment for race. BUN/Creatinine Ratio 10.4 LAB CHEMISTRY METHOD 03/22/2024 8:55 AM EST [facility] Albumin 2.1(L) 3.2 - 5.0 g/dL LAB CHEMISTRY METHOD 03/22/2024 8:55 AM [facility] Calcium 9.0 8.5 - 10.5 mg/dL LAB CHEMISTRY METHOD 03/22/2024 8:55 AM [facility] Phosphorus 3.4 2.5 - 4.5 mg/dL LAB CHEMISTRY METHOD 03/22/2024 8:55 AM [facility] Blood Venous blood specimen / Unknown Venipuncture / Unknown 03/22/2024 6:50 AM EST 03/22/2024 8:05 AM EST Catalina Burr MD LAB BLOOD ORDERABLES Final Resul t [facility] [address] [place] [address], [place] [phone] * (ABNORMAL) Complete blood count (03/22/2024 6:50 AM EST) WBC 10.4 4.8 - 10.8 K/[facility] HEMETOLOGY METHOD 03/22/2024 8:32 AM [facility] RBC 2.80(L) 3.80 - 4.80 M/[facility] LAB HEMETOLOGY METHOD 03/22/2024 8:32 AM [facility] Hemoglobin 7.9(L) 11.5 - 16.0 g/dL LAB HEMETOLOGY METHOD 03/22/2024 8:32 AM [facility] Hematocrit 27.8(L) 35.0 - 47.0 % LAB HEMETOLOGY METHOD 03/22/2024 8:32 AM [facility] MCV 98.6(H) 79.0 - 98.0 FL LAB HEMETOLOGY METHOD 03/22/2024 8:32 AM EST [facility] MCH 28.0 27.0 - 32.0 pcg LAB HEMETOLOGY METHOD 03/22/2024 8:32 AM [facility] MCHC 28.4(L) 32.0 - 37.0 g/dL LAB HEMETOLOGY METHOD 03/22/2024 8:32 AM EST [facility] RDW 17.8(H) 11.0 - 15.0 % LAB HEMETOLOGY METHOD 03/22/2024 8:32 AM EST [facility] Platelets 218 130 - 400 K/mcL LAB HEMETOLOGY METHOD 03/22/2024 8:32 AM [facility] MPV 10.7 7.0 - 11.0 FL LAB HEMETOLOGY METHOD 03/22/2024 8:32 AM EST [facility] NRBC 0.0 <1.0 % LAB HEMETOLOGY METHOD 03/22/2024 8:32 AM [facility] NRBC Absolute 0.00 <0.10 K/mcL LAB HEMETOLOGY METHOD 03/22/2024 8:32 AM [facility] Blood Venous blood specimen / Unknown Venipuncture / Unknown 03/22/2024 6:50 AM EST 03/22/2024 8:05 AM EST us Catalina Burr MD LAB BLOOD ORDERABLES Final Resul t [facility] [address] [place] [address], documented in this encounter Visit Diagnoses Diagnosis Chronic embolism and thrombosis of unspecified vein Acute kidney failure, unspecified (CMS/HCC V24) Acute kidney failure, unspecified Type 2 diabetes mellitus without complications (CMS/HCC V24, CMS/HCC V28) documented in this encounter Care Teams Rack Loader Relationship Specialty Start Date End Date Marita Wetzel DO [address] [place], [place] PCP - General 01/09/23 documented as of this encounter
--- OUTSIDE RECORDS SUMMARY | 2024-09-01 15:41 | XMS_ITS | Encounter Summary ---
Author Organization [facility], Address [address] [facility] [place] [address] Phone Care Team Providers Care Centrifugal Wax Molder Name Role Phone Marita Wetzel DO Primary Care Provider Unava ilable Reason for Visit * Reason Comments Med Refill Encounter Details Date Type Department Care Team (Late Contact Info) Description 06/18/2024 Refill [facility] [address] [place] [address] Srinivas Agrawal MD [address] [place] [phone] Social History Tobacco Use Types Packs/Day Years [...] Support [facility] [address] [place] [place] [phone] 11/03/2024 12:30 PM EDT Scheduled Only [facility] [address] [place] [phone] documented as of this encounter Procedures Procedure Name Priority Date/Time Associated Diagnosis Comments HD KINETICS Routine 06/18/2024 POST CHEMISTRY Routine 06/18/2024 IMMUNO CHEMISTRY Routine 06/18/2024 HEMATOLOGY Routine 06/18/2024 CHEMISTRY Routine 06/18/2024 CHEMISTRY Routine 06/18/2024 [facility] RESULTS Routine 06/18/2024 documented in this encounter Results * [facility] Results (06/18/2024) Pathologist [facility] eKt/V ([place]) 1.28 Knowledge Center WSTDKT/V 0.8 Knowledge Center spKt/V (Daugirdas II) 1.50 Knowledge Center 06/18/2024 06/18/2024 [facility] Ordering Provider LAB BLOOD ORDERABLES Final Result [facility] Center Contact Performing lab Unknown, [place] * HD KINETICS (06/18/2024) Pathologist [facility] % Urea Reduction 70 65 - 80 % [facility] 06/18/2024 06/22/2024 9:5 5 AM EST Narrative Resulting Agency Comment Specimen source: Plasma Srinivas Agrawal MD LAB BLOOD ORDERABLES Final Result [facility] See order comments or contact performing lab Unknown, [place] * POST CHEMISTRY (06/18/2024) Pathologist [facility] BUN Post Dialysis 13 6 - 19 mg/dL [facility] 06/18/2024 06/22/2024 9:5 5 AM EST Narrative [facility] - 06/22/2024 Unless otherwise specified, test(s) performed at: [facility], [address] [place] [address] WILDLAND FIRE FIGHTER SPECIALIST: Dwayne Fuentes M.D. For any questions, please call customer service at FREQUENCY:MONTHLY Resulting Agency Comment Specimen source: Plasma Srinivas Agrawal MD LAB BLOOD ORDERABLES Final Result Performing Organization Address City/[facility]/ZIP Co de Phone Number [facility] See order comments or contact performing lab Unknown, [place] * IMMUNO CHEMISTRY (06/18/2024) Pathologist [facility] Hep B Surface Ag Negative Negative [facility] 06/18/2024 06/19/2024 11: 21 AM EST Narrative Resulting Agency Comment Specimen source: Serum Srinivas Agrawal MD LAB BLOOD ORDERABLES Final Result Performing Organization Address City/[facility]/ZIP Co de Phone Number [facility] See order comments or contact performing [...] 06/19/2024 Unless otherwise specified, test(s) performed at: [facility], [address] [place], [place] [id number] WILDLAND FIRE FIGHTER SPECIALIST: Dwayne Fuentes M.D. For any questions, please call customer service at FREQUENCY:MONTHLY Resulting Agency Comment Specimen source: Serum Srinivas Agrawal MD LAB BLOOD ORDERABLES Edite d Result - Final Performing Organization Address [facility] Co de Phone Number [facility] See order comments or contact performing lab Unknown, [place] * (ABNORMAL) HEMATOLOGY (06/18/2024) Hemoglobin 7.9(L) 12.0 - 16.0 g/dL [facility] Hemoglobin x 3 23.7(L) 36.0 - 48.0 % [facility] 06/18/2024 06/19/2024 12: 24 PM EST Narrative [facility] - 06/19/2024 Unless otherwise specified, test(s) performed at: [facility], [address] [place] [id number] [employer]ILDL[employer] FI[employer] FIGHTER SPECIALIST: Dwayne Fuentes M.D. For any questions, please call customer service at FREQUENCY:MONTHLY Resulting Agency Comment Specimen source: Blood Srinivas Agrawal MD LAB BLOOD ORDERABLES Final Result Performing Organization Address City/[facility]/ZIP Co de Phone Number [facility] See order comments or contact performing lab Unknown, [place] * (ABNORMAL) [facility] Chemistry (06/18/2024) PTH 145(H) 16 - 80 pg/mL [facility] 06/18/2024 06/19/2024 11: 40 AM EST Narrative [facility] - 06/19/2024 Unless otherwise specified, test(s) performed at: [facility], [address] [place] [address] WILDLAND FIRE FIGHTER SPECIALIST: Dwayne Fuenets M.D. For any questions, please call customer service at FREQUENCY:MONTHLY Resulting Agency Comment Specimen source: Plasma us Srinivas Agrawal MD LAB BLOOD ORDERABLES Final Result [facility] [employer] See order comments or contact performing lab Unknown, [place] documented in this encounter Visit Diagnoses Not on filedocumented in this encounter Care Teams Centrifugal Wax Molder Relationship Specialty Start Date End Date Marita Wetzel DO [address] [place] [address] PCP - General Family Medicine 11/14/22 documented as of this encounter
--- OUTSIDE RECORDS SUMMARY | 2024-09-01 15:41 | XMS_ITS | Encounter Summary ---
Author Organization [facility] Address [address] [place] [address] Care Team Providers Care Credit Underwriter Name Role Phone Marita Wetzel Primary Care Provider +1- [phone] Encounter Details Date Type Department Care Team (Late st Contact Info) Description 03/30/2024 Lab Requisition [facility] - Main Lab [address] [facility] [place] [address] Catalina Burr MD [address] [place] [address] Chronic embolism and thrombosis of unspecified vein; [...] LAB CHEMISTRY METHOD 03/31/2024 12:06 PM EST [facility] Blood Venous blood specimen / Unknown Venipuncture / Unknown 03/31/2024 9:23 AM EST 03/31/2024 11:25 AM EST Catalina Burr MD LAB BLOOD ORDERABLES Final Resul t Performing Organization Address [facility]/ZIP Co de Phone Number [facility] [address] [place] [address], [place] [phone] * (ABNORMAL) Ferritin (03/31/2024 9:23 AM EST) Ferritin 6,203(H) 8 - 252 ng/mL LAB CHEMISTRY METHOD 03/31/2024 12:10 PM EST [facility] Blood Venous blood specimen / Unknown Venipuncture / Unknown 03/31/2024 9:23 AM EST 03/31/2024 11:25 AM EST Catalina Burr MD LAB BLOOD ORDERABLES Final Resul t Performing Organization Address [facility]/ZIP Co de Phone Number [facility] [address] [place] [address], [place] [phone] documented in this encounter Visit Diagnoses Diagnosis Chronic embolism and thrombosis of unspecified vein Acute kidney failure, unspecified (CMS/HCC V24) Acute kidney failure, unspecified documented in this encounter Care Teams Credit Underwriter Relationship Specialty Start Date End Date Marita Wetzel DO [address] [place] [address] PCP - General 01/09/23 documented as of this encounter
--- OUTSIDE RECORDS SUMMARY | 2024-09-01 15:41 | XMS_ITS | Encounter Summary ---
Author Organization [facility] Address [address] [place] [address] Care Team Providers Care Flooring Salesperson Name Role Phone Marita Wetzel Primary Care Provider +1- [phone] Encounter Details Date Type Department Care Team (Late st Contact Info) Description 04/02/2024 Lab Requisition [facility] - Main Lab [address] [facility] [place] [phone] Marily Gordillo MD [address] [place] [address] Chronic embolism and thrombosis of [...] and the performance characteristics determined by [facility]. This confirmation testing has not been cleared or approved by the FDA. The laboratory is regulated under CLIA as qualified to perform high-complexity testing. This test is used for patient testing purposes. It should not be regarded as investigational or for research. Test performed at [facility], [address], [place], [place] ??[address] ? [phone] Ashtyn Leigh MD, PhD - Senior Sales Assistant Blood Venous blood specimen / Unknown Venipuncture / Unknown 04/05/2024 6:56 AM EST 04/05/2024 10:25 AM EST us Marily Gordillo MD LAB BLOOD ORDERABLES Final Resul t [place] [address] * (ABNORMAL) Renal function panel (04/05/2024 6:56 AM EST) Sodium 138 133 - 145 mmol/L LAB CHEMISTRY METHOD 04/05/2024 11:52 AM [facility] Potassium 5.0 3.5 - 5.5 mmol/L LAB CHEMISTRY METHOD 04/05/2024 11:52 AM [facility] Chloride 107 96 - 110 mmol/L LAB CHEMISTRY METHOD 04/05/2024 11:52 AM [facility] CO2 20(L) 21 - 32 mmol/L LAB CHEMISTRY METHOD 04/05/2024 11:52 AM [facility] Anion Gap 11 3 - 11 LAB CHEMISTRY METHOD 04/05/2024 11:52 AM [facility] Glucose 104(H) 70 - 100 mg/dL LAB CHEMISTRY METHOD 04/05/2024 11:52 AM [facility] BUN 56(H) 5 - 25 mg/dL LAB CHEMISTRY METHOD 04/05/2024 11:52 AM [facility] Creatinine 4.43(H) 0.50 - 1.10 mg/dL LAB CHEMISTRY METHOD 04/05/2024 11:52 AM [facility] eGFR 11(L) >=60 mL/min/1. 73m2 LAB CHEMISTRY METHOD 04/05/2024 11:52 AM [facility] Comment:Calculation based on the??Chronic Kidney Disease Epidemiology Collaboration (CKD-EPI) equation refit??without adjustment for race. BUN/Creatinine Ratio 12.6 LAB CHEMISTRY METHOD 04/05/2024 11:52 AM [facility] Albumin 1.9(L) 3.2 - 5.0 g/dL LAB CHEMISTRY METHOD 04/05/2024 11:52 AM EST [facility] Calcium 9.0 8.5 - 10.5 mg/dL LAB CHEMISTRY METHOD 04/05/2024 11:52 AM [facility] Phosphorus 3.1 2.5 - 4.5 mg/dL LAB CHEMISTRY METHOD 04/05/2024 11:52 AM [facility] Blood Venous blood specimen / Unknown Venipuncture / Unknown 04/05/2024 6:56 AM EST 04/05/2024 10:21 AM EST Marily Gordillo MD LAB BLOOD ORDERABLES Final Resul t [facility] [address] [place] [address], * (ABNORMAL) Complete blood count (04/05/2024 6:56 AM EST) WBC 9.2 4.8 - 10.8 K/mcL LAB HEMETOLOGY METHOD 04/05/2024 10:42 AM [facility] RBC 2.50(L) 3.80 - 4.80 M/mcL LAB HEMETOLOGY METHOD 04/05/2024 10:42 AM [facility] Hemoglobin 6.8(L) 11.5 - 16.0 g/dL LAB HEMETOLOGY METHOD 04/05/2024 10:42 AM [facility] Hematocrit 24.8(L) 35.0 - 47.0 % LAB HEMETOLOGY METHOD 04/05/2024 10:42 AM [facility] MCV 99.6(H) 79.0 - 98.0 FL LAB HEMETOLOGY METHOD 04/05/2024 10:42 AM [facility] MCH 27.3 27.0 - 32.0 pcg LAB HEMETOLOGY METHOD 04/05/2024 10:42 AM EST [facility] MCHC 27.4(L) 32.0 - 37.0 g/dL LAB HEMETOLOGY METHOD 04/05/2024 10:42 AM [facility] RDW 16.7(H) 11.0 - 15.0 % LAB HEMETOLOGY METHOD 04/05/2024 10:42 AM [facility] Platelets 332 130 - 400 K/mcL LAB HEMETOLOGY METHOD 04/05/2024 10:42 AM [facility] MPV 10.2 7.0 - 11.0 FL LAB HEMETOLOGY METHOD 04/05/2024 10:42 AM [facility] NRBC 0.0 <1.0 % LAB HEMETOLOGY METHOD 04/05/2024 10:42 AM [facility] NRBC Absolute 0.00 <0.10 K/mcL LAB HEMETOLOGY METHOD 04/05/2024 10:42 AM [facility] Blood Venous blood specimen / Unknown Venipuncture / Unknown 04/05/2024 6:56 AM EST 04/05/2024 10:26 AM EST us Marily Gordillo MD LAB BLOOD ORDERABLES Final Resul t [facility] [address] [place] [address], documented in this encounter Visit Diagnoses Diagnosis Chronic embolism and thrombosis of unspecified vein Acute kidney failure, unspecified (CMS/HCC V24) Acute kidney failure, unspecified documented in this encounter Care Teams Flooring Salesperson Relationship Specialty Start Date End Date Marita Wetzel DO [address] [place] [address] PCP - General 01/09/23 documented as of this encounter
--- OUTSIDE RECORDS SUMMARY | 2024-09-01 15:41 | XMS_ITS | Encounter Summary ---
Author Organization [facility], Address [address] [place] [address] Phone Care Team Providers Care Commissioner Conservation Of Resources Name Role Phone Marita Wetzel DO Primary Care Provider Unava ilable Reason for Visit * Reason Comments Med Refill Encounter Details Date Type Department Care Team (Late Contact Info) Description 01/04/2021 Refill [facility] [address] [place] [phone] Bernardo Doty MD [address] [place] [phone] Social History Tobacco Use Types Packs/Day Years [...] [facility] [address] [place] [phone] 11/03/2024 12:30 PM EDT Scheduled Only [facility] [address] [place] [address] documented as of this encounter Visit Diagnoses Not on filedocumented in this encounter Care Teams Commissioner Conservation Of Resources Relationship Specialty Start Date End Date Marita Wetzel DO [address] [place] [address] PCP - General Family Medicine 11/14/22 documented as of this encounter
--- OUTSIDE RECORDS SUMMARY | 2024-09-01 15:41 | XMS_ITS | Encounter Summary ---
Author Organization [facility] Address [address] [place] [address] Care Team Providers Care Employee Communications Intern Name Role Phone Marita Wetzel DO Primary Care Provider +1- [phone] Encounter Details Date Type Department Care Team (Late st Contact Info) Description 03/15/2024 Lab Requisition [facility] - Main Lab [address] [facility] [place] [phone] Catalina Burr MD [address] [place] [address] Acute kidney failure, unspecified (CMS/HCC V24); Chronic [...] vein documented in this encounter Care Teams Employee Communications Intern Relationship Specialty Start Date End Date Marita Wetzel DO [address] [place], [place] PCP - General 01/09/23 documented as of this encounter
--- OUTSIDE RECORDS SUMMARY | 2024-09-01 15:41 | XMS_ITS | Encounter Summary ---
Author Organization [facility], Address [address] [place] [address] Phone Care Team Providers Care Motor And Generator Assembler Name Role Phone Marita Wetzel DO Primary Care Provider Unava ilable Reason for Visit * Reason Comments Med Refill Encounter Details Date Type Department Care Team (Late Contact Info) Description 05/08/2021 Refill [facility] [address] [place] [phone] Bernardo Doty MD [address] [address] [place] [phone] Social History Tobacco Use Types Packs/Day Years [...] [facility] [address] [place] [phone] 11/03/2024 12:30 PM EDT Scheduled Only [facility] [address] [place] [address] documented as of this encounter Visit Diagnoses Not on filedocumented in this encounter Care Teams Motor And Generator Assembler Relationship Specialty Start Date End Date Marita Wetzel DO [address] [place] [address] PCP - General Family Medicine 11/14/22 documented as of this encounter
--- OUTSIDE RECORDS SUMMARY | 2024-09-01 15:41 | XMS_ITS | Encounter Summary ---
Author Organization [facility] Address [address] [place] [address] Care Team Providers Care Structural Steel Shop Supervisor Name Role Phone Mary JaneMarita yousif Primary Care Provider +1- [phone] Encounter Details Date Type Department Care Team (Late st Contact Info) Description 02/24/2024 Lab Requisition [facility] - Main Lab 299 [facility] [place] [address] Norbert Lopez MD [facility] 204 [facility] [address] Encounter for other specified prophylactic [...] Travel phlebotomy fee (02/24/2024 12:45 PM EST) [facility] HOME TRAVEL PHLEBOTOMY FEE Completed 02/24/2024 2:01 PM EST [facility] Blood Venous blood specimen / Unknown Venipuncture / Unknown 02/24/2024 12:45 PM EST 02/24/2024 1:29 PM EST Norbert Lopez MD LAB BLOOD ORDERABLES Final Resul t Performing Organization Address [facility] Co de Phone Number [facility] [address] [place] [address], [place] [phone] * (ABNORMAL) Heparin and low molecular weight anti Xa level (02/24/2024 12:45 PM EST) [facility] Heparin Anti-Xa 0.28(L) 0.30 - 0.70 I Unit/mL LAB COAGULATION METHOD 02/24/2024 2:02 PM EST [facility] Blood Venous blood specimen / Unknown Venipuncture / Unknown 02/24/2024 12:45 PM EST 02/24/2024 1:29 PM EST Narrative [facility] - 02/24/2024 2:02 PM EST Therapeutic range listed is for Unfractionated Heparin. LMW Heparin therapeutic range: 0.50-1.20 IU/mL Norbert Lopez MD LAB BLOOD ORDERABLES Final Resul t Performing Organization Address City/[facility]/ZIP Co de Phone Number [facility] [address] [place] [address], [place] [phone] * (ABNORMAL) Basic metabolic panel (02/24/2024 12:45 PM EST) [facility] Sodium 137 133 - 145 mmol/L LAB CHEMISTRY METHOD 02/24/2024 3:10 PM [facility] Potassium 3.7 3.5 - [...] t [facility] [address] [place] [address], * (ABNORMAL) Complete blood count (02/24/2024 12:45 PM EST) [facility] WBC 11.3(H) 4.8 - 10.8 K/mcL [...] LAB HEMETOLOGY METHOD 02/24/2024 1:38 PM EST [facility] NRBC Absolute 0.00 <0.10 K/mcL LAB HEMETOLOGY METHOD 02/24/2024 1:38 PM EST [facility] Blood Venous blood specimen / Unknown Venipuncture / Unknown 02/24/2024 12:45 PM EST 02/24/2024 1:29 PM EST us Norbert Lopez MD LAB BLOOD ORDERABLES Final Resul t [facility] [address] [place] [address], documented in this encounter Visit Diagnoses Diagnosis Encounter for other specified prophylactic measures Acute kidney failure, unspecified (CMS/HCC V24) Acute kidney failure, unspecified documented in this encounter Care Teams Structural Steel Shop Supervisor Relationship Specialty Start Date End Date Marita Wetzel DO [address] [place] [address] PCP - General 01/09/23 documented as of this encounter
--- OUTSIDE RECORDS SUMMARY | 2024-09-01 15:41 | XMS_ITS | Encounter Summary ---
Author Organization [facility] Address [address] [place] [address] Care Team Providers Care Aerial Gunner Superintendent Name Role Phone Mary JaneMarita yousif Primary Care Provider +1- [phone] Encounter Details Date Type Department Care Team (Late st Contact Info) Description 03/05/[address] [facility] - Main Lab 299 [facility] [place] [address] Catalina Burr MD [address] [place] [address] Chronic embolism and thrombosis of unspecified vein; [...] [facility], [address], [place], [place] ??[address] ? [phone] Ashtyn Leigh MD, PhD - Counter Molder Blood Venous blood specimen / Unknown Venipuncture / Unknown 03/08/2024 6:29 AM EST 03/08/2024 7:46 AM EST us Catalina Burr MD LAB BLOOD ORDERABLES Final Resul t [facility] [address] [place] [address] * (ABNORMAL) Renal function panel (03/08/2024 6:29 AM EST) Sodium 139 133 - 145 mmol/L LAB CHEMISTRY METHOD 03/08/2024 8:58 AM [facility] Potassium 4.5 3.5 - 5.5 mmol/L LAB CHEMISTRY METHOD 03/08/2024 8:58 AM [facility] Chloride 108 96 - 110 mmol/L LAB CHEMISTRY METHOD 03/08/2024 8:58 AM [facility] CO2 20(L) 21 - 32 mmol/L LAB CHEMISTRY METHOD 03/08/2024 8:58 AM [facility] Anion Gap 11 3 - 11 LAB CHEMISTRY METHOD 03/08/2024 8:58 AM [facility] Glucose 93 70 - 100 mg/dL LAB CHEMISTRY METHOD 03/08/2024 8:58 AM [facility] BUN 35(H) 5 - 25 mg/dL LAB CHEMISTRY METHOD 03/08/2024 8:58 AM [facility] Creatinine 3.99(H) 0.50 - 1.10 mg/dL LAB CHEMISTRY METHOD 03/08/2024 8:58 AM [facility] eGFR 12(L) >=60 mL/min/1. 73m2 LAB CHEMISTRY METHOD 03/08/2024 8:58 AM [facility] Comment:Calculation based on the??Chronic Kidney Disease Epidemiology Collaboration (CKD-EPI) equation refit??without adjustment for race. BUN/Creatinine Ratio 8.8 LAB CHEMISTRY METHOD 03/08/2024 8:58 AM EST [facility] Albumin 2.3(L) 3.2 - 5.0 g/dL LAB CHEMISTRY METHOD 03/08/2024 8:58 AM [facility] Calcium 9.0 8.5 - 10.5 mg/dL LAB CHEMISTRY METHOD 03/08/2024 8:58 AM [facility] Phosphorus 3.2 2.5 - 4.5 mg/dL LAB CHEMISTRY METHOD 03/08/2024 8:58 AM [facility] Blood Venous blood specimen / Unknown Venipuncture / Unknown 03/08/2024 6:29 AM EST 03/08/2024 7:46 AM EST us Catalina Burr MD LAB BLOOD ORDERABLES Final Resul t [facility] [address] [place] [address], [place] [phone] * (ABNORMAL) Complete blood count (03/08/2024 6:29 AM EST) WBC 9.8 4.8 - 10.8 K/mcL LAB HEMETOLOGY METHOD 03/08/2024 8:10 AM [facility] RBC 2.90(L) 3.80 - 4.80 M/[facility] LAB HEMETOLOGY METHOD 03/08/2024 8:10 AM [facility] Hemoglobin 7.9(L) 11.5 - 16.0 g/dL LAB HEMETOLOGY METHOD 03/08/2024 8:10 AM [facility] Hematocrit 28.5(L) 35.0 - 47.0 % LAB HEMETOLOGY METHOD 03/08/2024 8:10 AM [facility] MCV 99.3(H) 79.0 - 98.0 FL LAB HEMETOLOGY METHOD 03/08/2024 8:10 AM EST [facility] MCH 27.5 27.0 - 32.0 pcg LAB HEMETOLOGY METHOD 03/08/2024 8:10 AM EST [facility] MCHC 27.7(L) 32.0 - 37.0 g/dL LAB HEMETOLOGY METHOD 03/08/2024 8:10 AM EST [facility] RDW 17.2(H) 11.0 - 15.0 % LAB HEMETOLOGY METHOD 03/08/2024 8:10 AM EST [facility] Platelets 299 130 - 400 K/mcL LAB HEMETOLOGY METHOD 03/08/2024 8:10 AM EST [facility] MPV 11.5(H) 7.0 - 11.0 FL LAB HEMETOLOGY METHOD 03/08/2024 8:10 AM EST [facility] NRBC 0.0 <1.0 % LAB HEMETOLOGY METHOD 03/08/2024 8:10 AM EST [facility] NRBC Absolute 0.00 <0.10 K/mcL LAB HEMETOLOGY METHOD 03/08/2024 8:10 AM EST [facility] Blood Venous blood specimen / Unknown Venipuncture / Unknown 03/08/2024 6:29 AM EST 03/08/2024 7:46 AM EST us Catalina Burr MD LAB BLOOD ORDERABLES Final Resul t [facility] [address] [place] [address], documented in this encounter Visit Diagnoses Diagnosis Chronic embolism and thrombosis of unspecified vein Acute kidney failure, unspecified (CMS/HCC V24) Acute kidney failure, unspecified Type 2 diabetes mellitus without complications (CMS/HCC V24, CMS/HCC V28) documented in this encounter Care Teams Aerial Gunner Superintendent Relationship Specialty Start Date End Date Marita Wetzel DO [address] [place], [place] PCP - General 01/09/23 documented as of this encounter
--- OUTSIDE RECORDS SUMMARY | 2024-09-01 15:41 | XMS_ITS | Encounter Summary ---
Author Organization [facility] Address [address] [place] [address] Care Team Providers Care Supervisor Public Health Nursing Name Role Phone Marita Wetzel Primary Care Provider +1- [phone] Encounter Details Date Type Department Care Team (Late st Contact Info) Description 03/29/[address] [facility] - Main Lab 299 [facility] [place] [address] Catalina Burr MD [address] [place] [address] End stage renal disease (CMS/HCC V24, CMS/HCC [...] 6:53 AM EST End stage renal disease (CMS/[facility]) documented in this encounter Results * Tacrolimus level (03/29/2024 6:53 AM EST) Tacrolimus Level 6.8 5.0 - 20.0 ng/mL 03/31/2024 12:22 PM EST [facility] Comment: Additional Information: Toxic Level ?> [...] Test performed at [facility], [facility] [place], [place] ??[address] ? [phone] Ashtyn Leigh MD, PhD - Claims Adjuster Crop Blood Venous blood specimen / Unknown Venipuncture / Unknown 03/29/2024 6:53 AM EST 03/29/2024 8:32 AM EST us Catalina Burr MD LAB BLOOD ORDERABLES Final Resul t [place] [address] * (ABNORMAL) Renal function panel (03/29/2024 6:53 AM EST) Sodium 140 133 - 145 mmol/L LAB CHEMISTRY METHOD 03/29/2024 10:07 AM [facility] Potassium 3.9 3.5 - 5.5 mmol/L LAB CHEMISTRY METHOD 03/29/2024 10:07 AM [facility] Chloride 109 96 - 110 mmol/L LAB CHEMISTRY METHOD 03/29/2024 10:07 AM [facility] CO2 20(L) 21 - 32 mmol/L LAB CHEMISTRY METHOD 03/29/2024 10:07 AM [facility] Anion Gap 11 3 - 11 LAB CHEMISTRY METHOD 03/29/2024 10:07 AM [facility] Glucose 146(H) 70 - 100 mg/dL LAB CHEMISTRY METHOD 03/29/2024 10:07 AM [facility] BUN 42(H) 5 - 25 mg/dL LAB CHEMISTRY METHOD 03/29/2024 10:07 AM [facility] Creatinine 3.47(H) 0.50 - 1.10 mg/dL LAB CHEMISTRY METHOD 03/29/2024 10:07 AM [facility] eGFR 14(L) >=60 mL/min/1. 73m2 LAB CHEMISTRY METHOD 03/29/2024 10:07 AM [facility] Comment:Calculation based on the??Chronic Kidney Disease Epidemiology Collaboration (CKD-EPI) equation refit??without adjustment for race. BUN/Creatinine Ratio 12.1 LAB CHEMISTRY METHOD 03/29/2024 10:07 AM [facility] Albumin 2.0(L) 3.2 - 5.0 g/dL LAB CHEMISTRY METHOD 03/29/2024 10:07 AM [facility] Calcium 8.8 8.5 - 10.5 mg/dL LAB CHEMISTRY METHOD 03/29/2024 10:07 AM [facility] Phosphorus 2.5 2.5 - 4.5 mg/dL LAB CHEMISTRY METHOD 03/29/2024 10:07 AM [facility] Blood Venous blood specimen / Unknown Venipuncture / Unknown 03/29/2024 6:53 AM EST 03/29/2024 8:32 AM EST us Catalina Burr MD LAB BLOOD ORDERABLES Final Resul t [facility] [address] [place] [address], * (ABNORMAL) Complete blood count (03/29/2024 6:53 AM EST) WBC 11.0(H) 4.8 - 10.8 K/mcL LAB HEMETOLOGY METHOD 03/29/2024 9:47 AM [facility] RBC 2.80(L) 3.80 - 4.80 M/[facility] LAB HEMETOLOGY METHOD 03/29/2024 9:47 AM [facility] Hemoglobin 7.7(L) 11.5 - 16.0 g/dL LAB HEMETOLOGY METHOD 03/29/2024 9:47 AM [facility] Hematocrit 27.0(L) 35.0 - 47.0 % LAB HEMETOLOGY METHOD 03/29/2024 9:47 AM [facility] MCV 97.8 79.0 - 98.0 FL LAB HEMETOLOGY METHOD 03/29/2024 9:47 AM [facility] MCH 27.9 27.0 - 32.0 pcg LAB HEMETOLOGY METHOD 03/29/2024 9:47 AM [facility] MCHC 28.5(L) 32.0 - 37.0 g/dL LAB HEMETOLOGY METHOD 03/29/2024 9:47 AM [facility] RDW 17.5(H) 11.0 - 15.0 % LAB HEMETOLOGY METHOD 03/29/2024 9:47 AM [facility] Platelets 301 130 - 400 K/mcL LAB HEMETOLOGY METHOD 03/29/2024 9:47 AM [facility] MPV 10.3 7.0 - 11.0 FL LAB HEMETOLOGY METHOD 03/29/2024 9:47 AM [facility] NRBC 0.0 <1.0 % LAB HEMETOLOGY METHOD 03/29/2024 9:47 AM [facility] NRBC Absolute 0.00 <0.10 K/mcL LAB HEMETOLOGY METHOD 03/29/2024 9:47 AM [facility] Blood Venous blood specimen / Unknown Venipuncture / Unknown 03/29/2024 6:53 AM EST 03/29/2024 8:32 AM EST us Catalina Burr MD LAB BLOOD ORDERABLES Final Resul t [facility] [address] [place] [address], documented in this encounter Visit Diagnoses Diagnosis End stage renal disease (CMS/HCC V24, CMS/HCC V28) End stage renal disease documented in this encounter Care Teams Supervisor Public Health Nursing Relationship Specialty Start Date End Date Marita Wetzel DO [address] [place] [address] PCP - General 01/09/23 documented as of this encounter
--- OUTSIDE RECORDS SUMMARY | 2024-09-01 15:41 | XMS_ITS | Encounter Summary ---
Author Organization [facility] Address [address] [place] [address] Care Team Providers Care Tire Layer Name Role Phone Marita Wetzel Primary Care Provider +1- [phone] Encounter Details Date Type Department Care Team (Late st Contact Info) Description 03/12/2024 Lab Requisition [facility] - Main Lab 299 [facility] [place] [address] Catalina Burr MD [address] [place], [place] [id number] Chronic embolism and thrombosis of unspecified vein; [...] performed at [facility], [facility] [address] [place], [place] ??[address] ? [phone] Ashtyn Leigh MD, PhD - Software Controls Engineer Blood Venous blood specimen / Unknown Venipuncture / Unknown 03/15/2024 8:20 AM EST 03/15/2024 10:20 AM EST us Catalina Burr MD LAB BLOOD ORDERABLES Final Resul t [place] [address] * (ABNORMAL) Renal function panel (03/15/2024 8:20 AM EST) Sodium 139 133 - 145 mmol/L LAB CHEMISTRY METHOD 03/15/2024 11:31 AM [facility] Potassium 5.6(H) 3.5 - 5.5 mmol/L LAB CHEMISTRY METHOD 03/15/2024 11:31 AM [facility] Chloride 108 96 - 110 mmol/L LAB CHEMISTRY METHOD 03/15/2024 11:31 AM [facility] CO2 19(L) 21 - 32 mmol/L LAB CHEMISTRY METHOD 03/15/2024 11:31 AM [facility] Anion Gap 12(H) 3 - 11 LAB CHEMISTRY METHOD 03/15/2024 11:31 AM [facility] Glucose 105(H) 70 - 100 mg/dL LAB CHEMISTRY METHOD 03/15/2024 11:31 AM [facility] BUN 36(H) 5 - 25 mg/dL LAB CHEMISTRY METHOD 03/15/2024 11:31 AM [facility] Creatinine 3.97(H) 0.50 - 1.10 mg/dL LAB CHEMISTRY METHOD 03/15/2024 11:31 AM [facility] eGFR 12(L) >=60 mL/min/1. 73m2 LAB CHEMISTRY METHOD 03/15/2024 11:31 AM [facility] Comment:Calculation based on the??Chronic Kidney Disease Epidemiology Collaboration (CKD-EPI) equation refit??without adjustment for race. BUN/Creatinine Ratio 9.1 LAB CHEMISTRY METHOD 03/15/2024 11:31 AM EST [facility] Albumin 2.6(L) 3.2 - 5.0 g/dL LAB CHEMISTRY METHOD 03/15/2024 11:31 AM EST [facility] Calcium 9.5 8.5 - 10.5 mg/dL LAB CHEMISTRY METHOD 03/15/2024 11:31 AM EST [facility] Phosphorus 4.0 2.5 - 4.5 mg/dL LAB CHEMISTRY METHOD 03/15/2024 11:31 AM EST [facility] Blood Venous blood specimen / Unknown Venipuncture / Unknown 03/15/2024 8:20 AM EST 03/15/2024 10:16 AM EST us Catalina Burr MD LAB BLOOD ORDERABLES Final Resul t [facility] [address] [place] [address], documented in this encounter Visit Diagnoses Diagnosis Chronic embolism and thrombosis of unspecified vein Acute kidney failure, unspecified (CMS/HCC V24) Acute kidney failure, unspecified Type 2 diabetes mellitus without complications (CMS/HCC V24, CMS/HCC V28) documented in this encounter Care Teams Tire Layer Relationship Specialty Start Date End Date Marita Wetzel DO [address] [place] [address] PCP - General 01/09/23 documented as of this encounter
--- OUTSIDE RECORDS SUMMARY | 2024-09-01 15:41 | XMS_ITS | Encounter Summary ---
Author Organization [facility] Address [address] [place] [address] Care Team Providers Care Superintendent Transmission Name Role Phone Marita Wetzel Primary Care Provider +1- [phone] Encounter Details Date Type Department Care Team (Late st Contact Info) Description 03/01/2024 Lab Requisition [facility] - Main Lab 299 [facility] [place] [address] Catalina Burr MD [address] [place], [place] [id number] End stage renal disease (CMS/HCC V24, CMS/HCC [...] (ABNORMAL) Ferritin (03/01/2024 6:56 AM EST) Pathologist [facility] Ferritin 2,736(H) 8 - 252 ng/mL LAB CHEMISTRY METHOD 03/01/2024 11:27 AM EST [facility] Blood Venous blood specimen / Unknown Venipuncture / Unknown 03/01/2024 6:56 AM EST 03/01/2024 9:07 AM EST Catalina Burr MD LAB BLOOD ORDERABLES Final Resul t Performing Organization Address City/[facility]/ZIP Co de Phone Number [facility] [address] [place] [address], [place] [phone] * (ABNORMAL) Iron (03/01/2024 6:56 AM EST) [facility] Iron 29(L) 40 - 150 mcg/dL LAB CHEMISTRY METHOD 03/01/2024 11:22 AM EST [facility] Blood Venous blood specimen / Unknown Venipuncture / Unknown 03/01/2024 6:56 AM EST 03/01/2024 9:07 AM EST us Catalina Burr MD LAB BLOOD ORDERABLES Final Resul t [facility] [address] [place] [address], [place] [phone] * Tacrolimus level (03/01/2024 6:56 AM EST) [facility] Tacrolimus Level 5.2 5.0 - 20.0 ng/mL 03/04/2024 12:28 PM EST [facility] Comment: Additional Information: Toxic Level ?> [...] developed and the performance characteristics determined by [facility]. This confirmation testing has not been cleared or approved by the FDA. The laboratory is regulated under CLIA as qualified to perform high-complexity testing. This test is used for patient testing purposes. It should not be regarded as investigational or for research. Test performed at [facility], [address] [place], [place] ??[address] ? [phone] Ashtyn Leigh MD, PhD - Automobile Appraiser Blood Venous blood specimen / Unknown Venipuncture / Unknown 03/01/2024 6:56 AM EST 03/01/2024 9:07 AM EST us Catalina Burr MD LAB BLOOD ORDERABLES Final Resul t [place] [address] * (ABNORMAL) Renal function panel (03/01/2024 6:56 AM EST) Sodium 140 133 - 145 mmol/L LAB CHEMISTRY METHOD 03/01/2024 11:04 AM [facility] Potassium 3.4(L) 3.5 - 5.5 mmol/L LAB CHEMISTRY METHOD 03/01/2024 11:04 AM [facility] Chloride 107 96 - 110 mmol/L LAB CHEMISTRY METHOD 03/01/2024 11:04 AM [facility] CO2 24 21 - 32 mmol/L LAB CHEMISTRY METHOD 03/01/2024 11:04 AM [facility] Anion Gap 9 3 - 11 LAB CHEMISTRY METHOD 03/01/2024 11:04 AM [facility] Glucose 107(H) 70 - 100 mg/dL LAB CHEMISTRY METHOD 03/01/2024 11:04 AM [facility] BUN 26(H) 5 - 25 mg/dL LAB CHEMISTRY METHOD 03/01/2024 11:04 AM [facility] Creatinine 2.88(H) 0.50 - 1.10 mg/dL LAB CHEMISTRY METHOD 03/01/2024 11:04 AM [facility] eGFR 18(L) >=60 mL/min/1. 73m2 LAB CHEMISTRY METHOD 03/01/2024 11:04 AM [facility] Comment:Calculation based on the??Chronic Kidney Disease Epidemiology Collaboration (CKD-EPI) equation refit??without adjustment for race. BUN/Creatinine Ratio 9.0 LAB CHEMISTRY METHOD 03/01/2024 11:04 AM [facility] Albumin 2.3(L) 3.2 - 5.0 g/dL LAB CHEMISTRY METHOD 03/01/2024 11:04 AM [facility] Calcium 8.9 8.5 - 10.5 mg/dL LAB CHEMISTRY METHOD 03/01/2024 11:04 AM [facility] Phosphorus 1.9(L) 2.5 - 4.5 mg/dL LAB CHEMISTRY METHOD 03/01/2024 11:04 AM [facility] Blood Venous blood specimen / Unknown Venipuncture / Unknown 03/01/2024 6:56 AM EST 03/01/2024 9:07 AM EST us Catalina Burr MD LAB BLOOD ORDERABLES Final Resul t [facility] [address] [place] [address], [place] [phone] * (ABNORMAL) Complete blood count (03/01/2024 6:56 AM EST) WBC 10.2 4.8 - 10.8 K/mcL LAB HEMETOLOGY METHOD 03/01/2024 10:46 AM [facility] RBC 2.70(L) 3.80 - 4.80 M/mcL LAB HEMETOLOGY METHOD 03/01/2024 10:46 AM [facility] Hemoglobin 7.5(L) 11.5 - 16.0 g/dL LAB HEMETOLOGY METHOD 03/01/2024 10:46 AM [facility] Hematocrit 26.1(L) 35.0 - 47.0 % LAB HEMETOLOGY METHOD 03/01/2024 10:46 AM [facility] MCV 97.8 79.0 - 98.0 FL LAB HEMETOLOGY METHOD 03/01/2024 10:46 AM [facility] MCH 28.1 27.0 - 32.0 pcg LAB HEMETOLOGY METHOD 03/01/2024 10:46 AM [facility] MCHC 28.7(L) 32.0 - 37.0 g/dL LAB HEMETOLOGY METHOD 03/01/2024 10:46 AM EST [facility] RDW 16.7(H) 11.0 - 15.0 % LAB HEMETOLOGY METHOD 03/01/2024 10:46 AM [facility] Platelets 235 130 - 400 K/mcL LAB HEMETOLOGY METHOD 03/01/2024 10:46 AM [facility] MPV 10.8 7.0 - 11.0 FL LAB HEMETOLOGY METHOD 03/01/2024 10:46 AM [facility] NRBC 0.0 <1.0 % LAB HEMETOLOGY METHOD 03/01/2024 10:46 AM [facility] NRBC Absolute 0.00 <0.10 K/mcL LAB HEMETOLOGY METHOD 03/01/2024 10:46 AM [facility] Blood Venous blood specimen / Unknown Venipuncture / Unknown 03/01/2024 6:56 AM EST 03/01/2024 9:07 AM EST us Catalina Burr MD LAB BLOOD ORDERABLES Final Resul t [facility] [address] [place] [address], documented in this encounter Visit Diagnoses Diagnosis End stage renal disease (CMS/HCC V24, CMS/HCC V28) End stage renal disease Type 2 diabetes mellitus without complications (CMS/HCC V24, CMS/HCC V28) documented in this encounter Care Teams Superintendent Transmission Relationship Specialty Start Date End Date Marita Wetzel DO [address] [place] [address] PCP - General 01/09/23 documented as of this encounter
--- NOTE | 2024-09-01 15:59 | MHC.OFFVIS ---
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 She has CXR right pleural effusion She saw Dr Osborn of Pulmonary yesterday and he is following.IgG titers unremarkable apparently. 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 Mother CHF (congestive heart failure) Social History Household Members: Spouse Housing: House Do you presently have visiting nurse or other home services: Yes Alcohol intake: never Comment: patient is bedbound at this time Patient Tobacco Use Status: Never used Tobacco Advance Directives Date on File: 04/07/24 service: Yes Review of Systems Const All systems reviewed & are unremarkable except as noted in HPI and below Physical Exam Vital Signs: Last Vital Signs Pulse 69 09/01/24 16:06 Pulse Ox 98 09/01/24 16:06 Const General: cooperative Orientation/consciousness: patient oriented x3 HEENT Head: Yes normal to inspection Mouth: Normal oral and palatal mucosa present Eyes General: appearance normal, both eyes and all related structures Pupils: Equal, round and reactive pupils present Resp Effort & Inspection: normal respiratory effort Cardio Rate: regular rate Rhythm: regular rhythm GI Palpation (GI): Soft to palpation and nontender General: Yes no CVA tenderness Back/Spine/Pelvis Back: no CVA tenderness Skin General skin exam: no rashes or lesions noted Neuro General: patient oriented x3 Cranial nerves: Yes CN's II-XII intact bilaterally and Yes Equal, round and reactive pupils present Extrem General: Yes normal to inspection Psych Appearance: grossly normal Assessment & Plan Assessment & Plan (1) Disseminated nocardiosis: Comment: Doing well Possibly immodeficiency Code(s): A43.9 - Nocardiosis, unspecified Category: Medical Plan: Consider neutrophil burst oxidase assay if able through Immunology for CGD. Continue linezolid one month at which time would be out and will possibly continue. Orders: Orders CT chest wo/w IV con 08/02/24 A43.9 - Nocardiosis, unspecified Coding Level of Care Code Est Pt Level 3 (42721) Diagnoses Disseminated nocardiosis A43.9
[2024-09-01 16:06] VITALS: PULSE 69; O2SAT 98
== END 2024-09-01 18:37 ==
LOC: HO.HID 15:36
PROVIDERS: PCP Family Medicine; Visit Provider Internal Medicine
DX: A43.9 Nocardiosis, unspecified (principal)
CPT/HCPCS: 99213

== ENCOUNTER → 2024-09-01 15:36 | Outpatient (BNVA) | payer MEDICARE, OTHER, SELFPAY | PROVIDERS: PCP Family Medicine; Visit Provider Internal Medicine | DX: A43.9 Nocardiosis, unspecified (principal) | CPT/HCPCS: 99212 ==

== ENCOUNTER 2024-11-27 08:53 | Emergency (ER) | payer MEDICARE, OTHER, SELFPAY ==
--- OUTSIDE RECORDS SUMMARY | 2024-07-02 06:30 | XMS_ITS ---
Author Organization [facility] Address [address] [place] [address] Care Team Providers Care Muffle Worker Name Role Phone Jah Miryam Unavailable [phone] Encounters Encounter Location Date Provider Diagnosis [address] [address] 07/02/2024 Miryam Tyson Plan Of Treatment No Information Progress Notes * Farhan BEARDaDOB:1960 (64 yo F)Acc No.[id number]:07/02/2024 Progress Notes Patient: Alix SHEARER Provider: Esvin Tyson DPM :1960 A ge:64 Y S ex:Female Date:07/02/2024 Address:[address] [place], [place] [id number] Subjective: * Chief Complaints: * * Medical [...] 07/02/2024 Generated for Michael santos/Chloe/Oraliaitting on: 0 11/27/2024 11:50 AM EDT
--- NOTE | ~2024-11-27 | XR_ITS ---
CLINICAL HISTORY: fall on elbow 3 view left elbow Comparison: None Findings: A tiny ossific fragment is situated adjacent to the coronoid process on the lateral view. A thin curvilinear focus of calcification or ossification projects along the posterior aspect of the distal humerus on the lateral view. Minimal ulnohumeral osteoarthritis. Small olecranon enthesophyte, possibly with a trace amount of adjacent subcutaneous air. An elbow joint effusion is present. Calcific atherosclerosis. IMPRESSION: 1. Chip fracture at the tip of the coronoid process. 2. Thin curvilinear ossific or calcific focus along the posterior aspect of the distal humerus on the lateral view, which may represent a fragmented medial epicondyle enthesophyte. 3. Elbow joint effusion. 4. Small olecranon enthesophyte at the triceps tendon insertion, possibly with a small amount of subcutaneous air. Correlate for soft tissue wound. This document has been electronically signed by: Clayton Conley DO on 11/27/2024 10:15:33
--- NOTE | ~2024-11-27 | CT_ITS ---
CLINICAL HISTORY: lower abd distention, weight gain CT abdomen and pelvis without contrast Comparison: None available Findings: Trace bilateral pleural effusions, greater on the right. Right pleural thickening with suspected round atelectasis. Subsegmental atelectasis versus linear scarring in the lung bases. Cardiomegaly. Cholelithiasis. The gallbladder wall is not well evaluated. Underdistended bladder. Hepatomegaly, measuring 21.4 cm in craniocaudal dimension. There is a cystic lesion in region of the head of the pancreas measuring 1.7 x 2.5 x 2.3 cm. Questionable upstream pancreatic ductal dilatation and parenchymal atrophy. Upper limit of normal sized spleen, measuring 11.9 cm in anterior-posterior dimension. Atrophic kidneys with cysts and extensive vascular calcifications in the renal pelvises. Question lobular contour of the uterus which may indicate fibroids. The other solid organs are unremarkable. No bowel dilation. No definitive bowel wall thickening. There are anastomotic sutures in the right lower quadrant. The appendix is not visualized and suspected to be surgically absent. No aneurysm. Marked, severe calcified atherosclerotic disease. Multiple vascular stents. Lymph nodes measure up to 1.1 cm in short axis. Moderate ascites. Severe anasarca. Anterior abdominal wall hernia repair. No acute osseous abnormality. Status post pinning of the left femoral neck. Intact hardware. Impression: Moderate ascites with severe anasarca. Marked, severe calcified atherosclerotic disease. Trace bilateral pleural effusions. Right pleural thickening with suspected round atelectasis. 2.5 cm cystic lesion in the head of the pancreas with question of upstream pancreatic ductal dilatation and parenchymal atrophy. This could be the sequela of chronic pancreatitis. Evaluate further with nonemergent pancreatic mass protocol CT or MR to exclude malignancy. This document has been electronically signed by: Kaitlynn Marcus MD on 11/27/2024 14:54:28
--- NOTE | ~2024-11-27 | XR_ITS ---
CLINICAL HISTORY: fall of left hip 3 view, pelvis and left hip Comparison: None provided Findings: Curvilinear lucent line projecting over the medial aspect of the right inferior ischiopubic ramus may be artifactual or due to an age-indeterminate fracture. Correlate clinically. Otherwise no acute fracture. Three proximal femoral screws without hardware complications. Gutr-he-euycnbat degenerative narrowing of the superomedial aspects of the hip joints bilaterally. Postsurgical lower abdominal/pelvic changes. Vascular calcifications. IMPRESSION: Curvilinear lucent line projecting over the medial aspect of the right inferior ischiopubic ramus may be artifactual or due to an age-indeterminate fracture. Correlate clinically. Otherwise no acute fracture. This document has been electronically signed by: Evelyne Dunn MD on 11/27/2024 10:00:39
[2024-11-27 09:07] VITALS: BP 176/83; PULSE 61; RESP 18; TEMP 36.6; O2SAT 100; BMI 25.1
--- NOTE | 2024-11-27 11:42 | PC.NURSE ---
Called for patient to be bedded in [facility], patient not in [facility], family member states she is waiting in car, went to go get patient.
--- OUTSIDE RECORDS SUMMARY | 2024-11-27 11:50 | XMS_ITS | Encounter Summary ---
Author Organization [facility] Address [address] [place] [address] Phone Care Team Providers Care Fieldwork Coordinator Name Role Phone Marita Wetzel DO Primary Care Provider Unava ilable Encounter Details Date Type Department Care Team (Late st Contact Info) Description 04/18/2023 Documentation Only [facility] [address] [place] [phone] Jerod Adames DO [address] [place] [address] [place] [phone] Social History Tobacco Use Types Packs/Day Years [...] Care Team (Late st Contact Info) Description 12/22/2024 9:30 AM EDT Clinical Support [facility] [address] [place] [address] 03/08/2025 12:30 PM EST Scheduled Only [facility] [address] [place] [phone] documented as of this encounter Visit Diagnoses Not on filedocumented in this encounter Care Teams Fieldwork Coordinator Relationship Specialty Start Date End Date Mariat Wetzel DO [address] [place] [address] PCP - General Family Medicine 11/14/22 documented as of this encounter
--- OUTSIDE RECORDS SUMMARY | 2024-11-27 11:50 | XMS_ITS | Clinical Summary ---
Author Organization [facility] Address [address] [place] [address] Phone Care Team Providers Care System Validation Engineer Name Role Phone Bernardo Doty MD Unavailable Marita Wetzel DO Primary Care Provider [phone] Allergies Active Allergy Reactions Criticality Noted Date Comments Codeine Hives High 05/14/2013 Percocet (Oxycodone-Acetaminophen) Hives High 0 05/14/2013 Medications loratadine (CLARITIN) 10 mg tablet Take 10 mg by mouth daily. 11/22/2021 Active meclizine (ANTIVERT) 25 mg tablet Take 25 mg by mouth daily as needed. 11/25/2021 Active allopurinol (ZYLOPRIM) 300 MG tablet Take 150 mg by mouth daily. 09/08/2021 Active amLODIPine (NORVASC) 10 MG tablet Take 10 mg by mouth daily. 08/26/2021 Active cloNIDine (FTEJJNYB-NNC-6 ) 0.2 mg/[address] 1 patch onto the skin once a week. 10/11/2021 Active ergocalciferol (DRISDOL) 50,000 unit capsule Take 50,000 Units by mouth once a week. 09/22/2021 Active furosemide (LASIX) 40 MG tablet Take 40 mg by mouth daily. 09/18/2021 Active lisinopril (PRINIVIL,ZESTR IL) 40 MG tablet Take 40 mg by mouth daily. 11/08/2021 Active metoprolol succinate (TOPROL-XL) 100 MG 24 hr tablet Take 100 mg by mouth every morning. 10/18/2021 Active spironolactone (ALDACTONE) 25 MG tablet Take 25 mg by mouth 2 (two) times a day. 10/29/2021 Active dorzolamide-ray oloL (COSOPT) 22.3-6.8 mg/mL ophthalmic solution Place 1 drop into each eye 2 (two) times a day. 10 mL 12 11/27/2021 Active hydrALAZINE (APRESOLINE) 50 MG tablet Take 1 tablet (50 mg total) by mouth 2 (two) times a day. 11/27/2021 Active metoprolol succinate (TOPROL-XL) 50 MG 24 hr tablet Take 1 tablet (50 mg total) by mouth daily. 0 11/27/2021 Active VELPHORO 500 mg Chew Take 2 tablets (1,000 mg total) by mouth 3 (three) times a day. 11/27/2021 Active Active Problems Problem Noted Date Diagnosed Date Type 2 diabetes mellitus 05/14/2013 Overview (06/10/2014): Type 2 diabetes mellitus Hypertensive disorder 05/14/2013 Overview (06/10/2014): Hypertensive disorder Kidney problem 05/14/2013 Overview (06/10/2014): Kidney problem Hypercholesterolemia 05/14/2013 Overview (06/10/2014): Elevated cholesterol Encounters Date Type Department Care Team Description 09/27/2024 5:31 PM EDT - 09/27/2024 11:59 PM EDT Hospital Encounter [facility] Specimen Processing [address] [place] [address] Srinivas Agrawal MD Discharge Disposition: Home or Self Care 09/27/2024 Transcribe Orders [facility] Specimen Processing [address] [place] [address] Srinivas Agrawal MD Screening for unspecified condition (Primary Dx) 09/15/2024 11:54 AM EDT - 09/15/2024 11:59 PM EDT Hospital Encounter [facility] Specimen Processing [address] [place] [address] Bernardo Doty MD Discharge Disposition: Home or Self Care 09/15/2024 Transcribe Orders [facility] Specimen Processing [address] [place] [address] Bernardo Doty MD Screening for unspecified condition (Primary Dx) 09/15/2024 Transcribe Orders [facility] Specimen Processing [address] [place] [address] Bernardo Doty MD Iron deficiency anemia, unspecified iron deficiency anemia type (Primary Dx) from Last 3 Months Immunizations Immunization Administration Dates Next Due Hepatitis B CpG 10/01/2021, 2,07/04/2021,05/31 INFLUENZA, SPLIT VIRUS, TRIV ALENT W/ PRESERVATIVE IM 02/14/2021 Pneumococcal conjugate PCV13 01/05/2020 Pneumococcal polysaccharide PPSV23 05/03/2021, Family History Medical History Relation Comments Diabetes Brother Diabetes Mellitu s Diabetes Mother Diabetes Mellitu s Hypertension Mother Hypertension Diabetes Sister Diabetes Mellitu s Uncoded Family History Sister Thyroid p roblem Relation Status Comments Brother Mother Sister Social History Tobacco Use Types Packs/Day Years Used Date Smoking Tobacco: Never Smokeless Tobacco: Never Education Answer Date Recorded Are you interested in more education? Not on kumar e 08/16/2022 Are you concerned about learning? Not on file 08/16/2022 No 08/16/2022 No 08/16/2022 Digital Access Answer Date Recorded No 09/16/2022 No 09/16/2022 No 09/16/2022 Reliable internet access at home? Not on file 09/16/2022 Device with a working camera? Not on file Comments Unknown Sex and Gender Information Value Date Recorded Sex Assigned at Not on file Legal Sex Female 12:52 PM EST Gender Identity Not on file Sexual Orientation Not on file Last Filed Vital Signs Vital Sign Reading Time Taken Comments Blood Pressure 159/69 11/26/2021 2:10 PM EDT Pulse 69 11/26/2021 2:10 PM EDT Temperature 36.7 C (98.1 F) 11/26/2021 2:10 PM EDT Respiratory Rate - - Oxygen Saturation 100% 11/26/2021 2:1 0 PM EDT Inhaled Oxygen Concentration - - Weight 81.2 kg (179 lb) 11/26/2021 2:10 PM EDT Height 170.2 cm (5' 7.01 ) 11/27/2021 1 :31 PM EDT 06/2019 per [facility] Body Mass Index - - Plan of Treatment Health Maintenance Due Date Last Done Comments DEPRESSION SCREENING 1972 PAP SMEAR 1981 COLOGUARD 2005 COLONOSCOPY 2005 COLORECTAL CANCER SCREENING 2005 FIT TEST 2005 FOBT 2005 SIGMOIDOSCOPY 2005 VIRTUAL COLONOSCOPY 2005 ZOSTER VACCINES (1 of 2) 2010 DIABETIC EYE EXAM 06/10/2014 BLOOD PRESSURE 05/29/2022 11/26/2021 LIPID PANEL 11/26/2022 11/26/2021 HEMOGLOBIN A1C 02/08/2023 08/09/2022, 04/04/2022, 07/18/2022, Additional history exists COVID-19 VACCINE (2023- season) 2023 02/01/2022, 06/22/2020, 05/25/2020 MAMMOGRAM 07/11/2024 07/11/2022, 06/20, 07/09/2021, Additional history exists CREATININE LEVEL 05/03/2025 05/03/2024, 11/26/2021 POTASSIUM LEVEL 05/03/2025 05/03/2024, 11/26/2021 PNEUMOCOCCAL VACCINES (50+ years) (3 of 3 - PCV20 or PCV21) 05/03/2026 05/03/2021, 01/05/2020, 08/13/2010 Adult Td,Tdap Booster 01/19/2032 01/18/2022, 011 RSV VACCINE (1 - 1-dose 75+ series) 2035 HEPATITIS C SCREENING Completed 11/26/2021 HIV ONE-TIME SCREENING (18-65 YEARS) Completed 11/26/2021 SMOKING STATUS SCREENING (Once After 26 Yrs) Completed 11/26/2021 HEPATITIS A VACCINES Aged Out No long er eligible based on patient's age to complete this topic HIB VACCINES Aged Out No longer eligi ble based on patient's age to complete this topic MENINGOCOCCAL VACCINES (ACWY) Aged Out No longer eligible based on patient's age to complete this topic MENINGOCOCCAL VACCINES (B) Aged Out N o longer eligible based on patient's age to complete this topic Medical Devices Not on file Procedures Procedure Name Priority Date/Time Associated Diagnosis Comments HEMOGLOBIN Routine 09/27/2024 5:44 PM EDT Screening for unspecified condition HEMOGLOBIN Routine 09/15/2024 11:58 AM EDT Screening for unspecified condition COMPREHENSIVE METABOLIC PANEL Routine 05/03/2024 3:27 PM EST Screening for unspecified condition HEMOGLOBIN A1C Routine 11/26/2021 4:32 PM EDT Pre-transplant evaluation for kidney transplant LIPID PANEL Routine 11/26/2021 4:32 PM EDT Pre-transplant evaluation for kidney transplant HEPATITIS C ANTIBODY, QUALITATIVE Routine 11/26/2021 4:32 PM EDT Need for hepatitis C screening test from Last 3 Months or Most Recently Relevant to Health Maintenance Results * (ABNORMAL) Hemoglobin (09/27/2024 5:44 PM EDT) Only the most recent of2 resultswithin the time period is included. HGB 7.3(L) 12.0 - 16.0 g/dL [facility] Blood 09/27/2024 5:44 PM EDT 09/27/2024 5:48 PM EDT us Srinivas Agrawal MD LAB BLOOD ORDERABLES Fin al Result [address] [address] * (ABNORMAL) Comprehensive metabolic panel (05/03/2024 3:27 PM EST) SODIUM 135 133 - 146 mmol/L [facility] POTASSIUM 5.9(H) 3.3 - 5.1 mmol/L [facility] CHLORIDE 96 96 - 108 mmol/L [facility] CO2 27 21 - 35 mmol/L [facility] BUN 45(H) 6 - 19 mg/dL [facility] CREATININE 3.40(H) 0.5 - 1.5 mg/dL [facility] GLUCOSE 186(H) 70 - 99 mg/dL [facility] ALBUMIN 2.6(L) 3.9 - 4.8 g/dL [facility] TOTAL PROTEIN 6.2(L) 6.5 - 8.0 g/dL [facility] CALCIUM 9.0 8.4 - 10.3 mg/dL [facility] ALKALINE PHOSPHATASE 74 39 - 117 U/L [facility] TOTAL BILIRUBIN <0.2 0.0 - 1.2 mg/dL [facility] AST 9 0 - 37 U/L [facility] ALT 7 0 - 40 U/L [facility] GLOBULIN 3.6 1 - 4.8 g/dL [facility] EGFR 15(L) >59 mL/min/1.7 3m2 [facility] Comment:Estimated glomerular filtration rate calculated using the CKD-EPI refit equation. ANION GAP 18 10 - 20 mmol/L [facility] Blood 05/03/2024 3:27 PM EST 05/03/2024 8:39 PM EST us Twila CRUZ LAB BLOOD ORDERABLES Final Resu lt [address] [address] * Hepatitis C antibody, qualitative (11/26/2021 4:32 PM EDT) HCV Nonreactive Nonreactive [facility] Comment: 11/26/2021 4:32 PM EDT 11/26/2021 5:00 PM EDT us Manny Addison MD, PhD LAB BLOOD ORDERABLES Final Result [facility] [address] [place] [id number] * (ABNORMAL) Hemoglobin A1c (11/26/2021 4:32 PM EDT) HEMOGLOBIN A1C 7.8(H) 4.2 - 5.6 % [facility] Comment: HbA1c levels 5.7-6.4% represent pre-diabetes, indicating impaired glucose control and an increased risk of developing diabetes. The diagnostic HbA1c level for diabetes is 6.5% or greater. HbA1c is performed by the Ariane Danyelle-quant immunoassay method which does not detect (incidental) hemoglobin variants. Hemoglobin electrophoresis should be ordered in patients with suspected hemoglobinopathies. CALC MEAN BLD GLUC 177 mg/dL [facility] Comment: The Calculated Mean Blood Glucose (CMBG) represents the estimated average glucose calculated from the measured hemoglobin A1c (HbA1c). There is no established normal range for the CMBG, however a 5.6% HbA1c (upper limit of normal) represents a CMBG of 114 mg/dL. 11/26/2021 4:32 PM EDT 11/26/2021 5:00 PM EDT Manny Addison MD, PhD LAB BLOOD ORDERABLES Final Result Performing Organization Address City/[facility]/ZIP Co de Phone Number [address] [address] * (ABNORMAL) Lipid panel (11/26/2021 4:32 PM EDT) CHOLESTEROL 157 <200 mg/dL [facility] TRIGLYCERIDES 214(H) 35 - 150 mg/dL [facility] HDL 26(L) 40 - 80 mg/dL [facility] CALCULATED LDL 88 50 - 129 mg/dL [facility] VLDL 43(H) <31 mg/dL [facility] CARDIAC RISK RATIO 6.0(H) 0.0 - 4.0 [facility] 11/26/2021 4:32 PM EDT 11/26/2021 5:00 PM EDT Manny Addison MD, PhD LAB BLOOD ORDERABLES Final Result Performing Organization Address [facility]/ZIP Co de Phone Number [address] [address] from Last 3 Months or Most Recently Relevant to Health Maintenance Insurance MEDICARE PART A & B [employer] MEDICARE SUPPLEMENT MEDICARE PART A & B [employer] MEDICARE SUPPLEMENT MEDICARE PART A & B [employer] MEDICARE SUPPLEMENT MEDICARE PART A & B [employer] MEDICARE SUPPLEMENT MEDICARE PART A & B [employer] MEDICARE SUPPLEMENT MEDICARE PART A & B [employer] MEDICARE SUPPLEMENT MEDICARE PART A & B Care Teams System Validation Engineer Relationship Specialty Start Date End Date Marita Wetzel DO [address] [place] [address] PCP - General Family Medicine 03/28/22 Bernardo Doty MD [address] [address] [email or web address] Nephrology 11/13/21 Additional Source Comments The information contained in this document represents components of the legal health record. It is not the complete legal health record.[facility]
--- OUTSIDE RECORDS SUMMARY | 2024-11-27 11:50 | XMS_ITS ---
[facility] Name [facility] Unknown Problems Problem Status Onset Date Problem Type Date of Resoluti on Source Complication of transplanted kidney, unspecified complication active [facility] En[facility] Encounter Type Encounter Reason Primary Diagnosis Location Date Ambulatory Unspecified complication of kidney transplant Unspecified complication of kidney transplant [facility] 05/03/2024 Ambulatory Unspecified complication of kidney transplant Unspecified complication of kidney transplant [facility] 10/30/2023 Ambulatory Unspecified complication of kidney transplant Unspecified complication of kidney transplant [facility] 10/06/2023 Ambulatory Unspecified complication of kidney transplant Unspecified complication of kidney transplant [facility] 09/23/2023 Ambulatory Unspecified complication of kidney transplant Unspecified complication of kidney transplant [facility] 05/20/2023 Ambulatory Unspecified complication of kidney transplant Unspecified complication of kidney transplant [facility] 04/29/2023 Ambulatory Unspecified complication of kidney transplant Unspecified complication of kidney transplant [facility] 03/31/2023 Ambulatory Unspecified complication of kidney transplant Unspecified complication of kidney transplant [facility] 12/02/2022 Ambulatory Unspecified complication of kidney transplant [facility] 10/31/2022 Care Team Organization Name Specialty Phone Email Start Date End Da te [facility] PCP,No Primary Care 10/31/2022 07/07/2024 [facility] NO PCP Primary Care 10/04/2022 10/04/2022 [facility]
--- OUTSIDE RECORDS SUMMARY | 2024-11-27 11:50 | XMS_ITS | Encounter Summary ---
Author Organization [facility] Address [address] [place] [address] Care Team Providers Care Cdl Team Truck Driver Name Role Phone Marita Wetzel DO Primary Care Provider [phone] Encounter Details Date Type Department Care Team (Late st Contact Info) Description 05/30/2024 Lab Requisition [facility] - Main Lab [address] [place] [phone] Marily Gordillo MD [address] [place] [phone] Chronic embolism and thrombosis of unspecified vein; [...] unspecified documented in this encounter Care Teams Cdl Team Truck Driver Relationship Specialty Start Date End Date Marita Wetzel DO [address] [place], [place] PCP - General 01/09/23 documented as of this encounter
--- NOTE | 2024-11-27 12:23 | ED.GENADULT ---
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 Patient and has been in disagreement on which day patient fell. Patient states that she was walking into the nail salon when her walker got caught on the sidewalk, causing her to fall onto her left side. She denies head strike or loss of consciousness. States that she was able to go to dialysis yesterday without difficulty. Has been ambulating with walker without difficulty since the fall. Reports history of hip fracture with subsequent surgical repair 1 year ago. Also noting that her sewing machine attachment tester had been recommending imaging of her abdomen due to lower abdominal distension and recent weight gain over the past 6 months. Patient states that she was previously 95 lb. She denies any abdominal pain but does report some diarrhea. Denies any urinary symptoms. Denies fevers. Denies current headache or dizziness, lightheadedness. complaint: left elbow and hip pain Onset (ago): day(s) Related Data Home Medications ?Medication ?Instructions ?Recorded ?Confirmed acetaminophen 325 mg tablet 650 mg PO Q6H PRN Fever 04/07/24 05/28/24 carvedilol 25 mg tablet 25 mg PO BID 04/07/24 05/28/24 diphenhydramine HCl 25 mg tablet 25 mg PO BID PRN itchiness 04/07/24 05/28/24 docusate sodium 100 mg capsule 100 mg PO BID PRN Constipation 04/07/24 05/28/24 insulin lispro 200 unit/mL (3 mL) 2 - 10 sliding scale dose subcut 04/07/24 05/28/24 subcutaneous pen TID isosorbide mononitrate 30 mg 30 mg PO DAILY 04/07/24 05/28/24 tablet,extended release 24 hr pantoprazole 40 mg tablet,delayed 40 mg PO DAILY@0630 04/07/24 05/28/24 release sucralfate 1 gram tablet 1 g PO QIDACHS 04/07/24 05/28/24 Previous Rx's ?Medication ?Instructions ?Recorded linezolid 600 mg tablet 600 mg PO BID 30 days #60 tabs 07/28/24 Allergies Allergy/AdvReac Type Severity Reaction Status Date / Time codeine (CODEINE) Allergy Intermediate Hives and Verified 11/27/24 09:20 pruritus oxycodone (OXYCODONE) Allergy Intermediate HIVES Verified 11/27/24 09:20 Review of Systems Review of Systems: As per HPI Yes all other systems are reviewed and are negative Constitutional: Constitutional: Reports as per HPI [facility] Past Medical History Medical History Pneumonia, community acquired Hyperkalemia Acute hyperglycemia HTN (hypertension) Mood disorder 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 Mother CHF (congestive heart failure) Social History Social History Household Members: Spouse Housing: House Do you presently have visiting nurse or other home services: Yes Alcohol intake: never Comment: patient is bedbound at this time Patient Tobacco Use Status: Never used Tobacco Advance Directives: Yes Advance Directives on File: Yes Advance Directives Date on File: 04/07/24 service: Yes Physical Exam ED Vital Signs: Vital Signs - 24 hr 11/27/24 09:07 11/27/24 14:51 Temperature 98 F Pulse Rate 61 63 Respiratory Rate 18 16 Blood Pressure 176/83 H 171/80 H Pulse Oximetry 100 100 Oxygen Delivery Method Room Air Room Air BMI result Body Mass Index 25.1 Vital signs have been reviewed and appear to be correct. Blood pressure elevated. Heart rate normal. Respiratory rate normal. Temperature normal. Oxygen saturation normal. Const General: cooperative, no acute distress, alert, awake and ill appearing chronically Orientation/consciousness: oriented to person, oriented to place, oriented to time and patient oriented x3 Limitations: no limitations [facility] Head: Yes normocephalic and Yes atraumatic Ears: external ears normal General nose exam: Normal external nose present Face and sinus: Yes face symmetric Mouth: oropharynx normal and moist mucous membranes Throat: Yes uvula midline Eyes Pupils: Equal, round and reactive pupils present Neck Neck: Yes normal visual inspection, Yes full ROM, Yes trachea midline and Yes supple Resp Effort & Inspection: normal respiratory effort and able to speak in complete sentences Auscultation: clear to auscultation bilaterally Cardio Rate: regular rate Rhythm: regular rhythm Heart sounds: S1 normal heart sound present and S2 normal heart sound present GI Inspection: Yes distended (lower abdomen) Palpation (GI): Soft to palpation and nontender Auscultation: normoactive bowel sounds General: Yes no CVA tenderness Back/Spine/Pelvis Back: no CVA tenderness Cervical Spine: normal cervical lordosis, cervical ROM normal, No cervical muscular tenderness, No pain with cervical ROM, No Cervical spine tenderness and No step off deformity Thoracic/Lumbar Spine: thoracic and lumbar spine normal to inspection, No pain with thoraco-lumbar ROM, No thoracic spinal tenderness and No lumbar spinal tenderness Skin General skin exam: elasticity normal and turgor normal Neuro General: oriented to person, oriented to place, oriented to time, patient oriented x3, moves all extremities, no focal motor deficits and CN's II-XI intact bilaterally Cranial nerves: Yes Equal, round and reactive pupils present Cognition (Neuro): normal cognition Extrem General: Yes full ROM, Yes no pedal edema and Yes no calf tenderness Left upper extremity: elbow/forearm Details: tenderness Location: of the olecranon, abnormal ROM (unable to fully extend elbow), abrasion elbow lateral Details: single and distal pulses intact Left lower extremity: hip/thigh Details: tenderness Location: of the hip Location: laterally and normal ROM Psych Mental Status: mental status grossly normal Affect: normal affect Thought process: Normal thought process present Medications Administered Discontinued Medications Generic Name Dose Route Start Last Admin Trade Name Sarah PRN Reason Stop Dose Admin Acetaminophen 650 mg 11/27/24 14:41 11/27/24 14:49 Acetaminophen 325 Mg Tablet PO 11/27/24 14:42 650 mg ONCE ONE Administration Diphtheria/Tetanus/Acell Pertussis 0.5 ml 11/27/24 14:40 11/27/24 14:48 Diphth,Pertus(Acell),Tet Adult 0.5 Ml Syringe IM 11/27/24 14:41 0.5 ml .ONCE ONE Administration Medical Decision Making Medical Decision Making MDM Narrative: Patient is a 64-year-old female with history of end-stage renal disease on M/W/F dialysis, hypertension, anemia, 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 On exam patient is awake, A+Ox3, BP elevated, VS otherwise WNL, afebrile, normal neurological exam without focal deficits, physical exam findings as above. Given reported symptoms and physical exam findings, initial differential includes but is not limited to left elbow abrasion, contusion, fracture, left hip contusion vs fracture. Labs at baseline. X-ray left elbow notable for chip fracture to tip of coronoid process with effusion. X-ray left hip notable for curvilinear lucent line projecting over medial aspect of right ramus, no tenderness to palpation in this area, do not feel this represents acute fracture. CT abdomen pelvis notable for ascites and anasarca, pancreatic cyst. My interpretation is in agreement with the radiologist's interpretation. Patient updated on results and all questions answered. Elbow fracture discussed with Delphine from ortho who advised that sling as appropriate or can be splinted if patient is having a significant amount of pain. Patient denies any pain at rest, only mild pain with palpation. Sling ordered. CT abdomen pelvis results discussed with patient and advised to follow up with PCP as well as sewing machine attachment tester. No acute actionable findings today. Patient states that she has a follow up appointment with her orthopedic provider at the end of this month. She states she will discuss her elbow fracture with them at that time. Will also refer patient to [facility] orthopedics if she is unable to be seen by her own orthopedic provider. Return precautions discussed at bedside. Patient verbalized understanding of and agreement with plan. Differential Diagnosis Differential Diagnoses: The differential diagnosis associated with the presentation includes As per [facility] Admission/Observation Consideration of admission/observation: Escalation of care including admission/observation considered Patient would have been admitted to the hospital had their clinical presentation warranted hospital admission. Consult Healthcare Provider Management of the patient was discussed with: Cleaner Assistant (lauren Akers) Lab Data [facility] Lab Attestation statement: I reviewed the patient's lab results. as per [facility] 11/27/24 12:28 11/27/24 12:28 Labs: Lab Results 11/27/24 Range/Units 12:28 WBC 5.8 (4.8-10.8) X10*3/uL RBC 3.88 L D (4.20-5.50) X10*6/uL Hgb 10.7 L D (12.0-16.0) g/dl Hct 35.1 L D (37.0-47.0) % MCV 90.5 (80.0-98.0) fL MCH 27.6 (27.0-33.0) pg MCHC 30.5 L (31.0-35.0) g/dl RDW 18.1 H (11.0-16.0) % Plt Count 122 L D (160-400) X10*3/uL MPV 9.4 (9.4-12.3) fL Immature Gran % (Auto) 0.3 (0.0-0.4) % Neut % (Auto) 83.7 H (45-73) % Lymph % (Auto) 8.6 L (20-40) % [place] % (Auto) 6.7 (2-11) % Eos % (Auto) 0.5 (0-4) % Baso % (Auto) 0.2 (0-2) % Lymph # (Auto) 0.5 L (1.2-4.9) X10*3/uL [place] # (Auto) 0.4 (0.1-1.2) X10*3/uL Eos # (Auto) 0.0 (0.0-0.4) X10*3/uL Baso # (Auto) 0.0 (0.0-0.2) X10*3/uL Abs Immat Gran (auto) 0.02 (0.00-0.03) X10*3/uL Absolute Neuts (auto) 4.9 (2.0-8.3) x10*3/uL Absolute Nucleated RBC 0.000 (0.0-0.012) X10*3/uL Nucleated RBC % (auto) 0.0 (0.0-0.2) /100WBC Sodium 138 (135-145) mmol/L Potassium 4.3 D (3.3-5.1) mmol/L Chloride 103 (96-108) mmol/L Carbon Dioxide 24 (22-29) mmol/L Anion Gap 15 (12-20) BUN 40 H (9-16) mg/dL Creatinine 4.26 H* (0.5-1.4) mg/dL Estim Creat Clear Calc 12.9 Estimated GFR 10 Random Glucose 153 H (60-115) mg/dL Calcium 8.2 L (8.4-10.2) mg/dL Total Bilirubin 0.4 (0.0-1.0) mg/dL AST 20 (5-31) U/L ALT < 6 (0-31) U/L Alkaline Phosphatase 111 (39-117) U/L Total Protein 7.0 (6.5-8.0) g/dL Albumin 3.3 L (3.5-5.0) g/dL Independent Interpretation I performed an independent interpretation of an: Plain X-Ray and CT Scan Interpretation: X-ray left elbow notable for chip fracture to tip of coronoid process with effusion. X-ray left hip notable for curvilinear lucent line projecting over medial aspect of right ramus, no tenderness to palpation in this area, do not feel this represents acute fracture. CT abdomen pelvis notable for ascites and anasarca, pancreatic cyst. Radiology Impression Discussion of test interpretation with radiology: I have reviewed the radiologist's reading. Radiologist Impression: CLINICAL HISTORY: fall on elbow 3 view left elbow Comparison: None Findings: A tiny ossific fragment is situated adjacent to the coronoid process on the lateral view. A thin curvilinear focus of calcification or ossification projects along the posterior aspect of the distal humerus on the lateral view. Minimal ulnohumeral osteoarthritis. Small olecranon enthesophyte, possibly with a trace amount of adjacent subcutaneous air. An elbow joint effusion is present. Calcific atherosclerosis. IMPRESSION: 1. Chip fracture at the tip of the coronoid process. 2. Thin curvilinear ossific or calcific focus along the posterior aspect of the distal humerus on the lateral view, which may represent a fragmented medial epicondyle enthesophyte. 3. Elbow joint effusion. 4. Small olecranon enthesophyte at the triceps tendon insertion, possibly with a small amount of subcutaneous air. Correlate for soft tissue wound. CLINICAL HISTORY: fall of left hip 3 view, pelvis and left hip Comparison: None provided Findings: Curvilinear lucent line projecting over the medial aspect of the right inferior ischiopubic ramus may be artifactual or due to an age-indeterminate fracture. Correlate clinically. Otherwise no acute fracture. Three proximal femoral screws without hardware complications. [id number] degenerative narrowing of the superomedial aspects of the hip joints bilaterally. Postsurgical lower abdominal/pelvic changes. Vascular calcifications. IMPRESSION: Curvilinear lucent line projecting over the medial aspect of the right inferior ischiopubic ramus may be artifactual or due to an age-indeterminate fracture. Correlate clinically. Otherwise no acute fracture. T abdomen and pelvis without contrast Comparison: None available Findings: Trace bilateral pleural effusions, greater on the right. Right pleural thickening with suspected round atelectasis. Subsegmental atelectasis versus linear scarring in the lung bases. Cardiomegaly. Cholelithiasis. The gallbladder wall is not well evaluated. Underdistended bladder. Hepatomegaly, measuring 21.4 cm in craniocaudal dimension. There is a cystic lesion in region of the head of the pancreas measuring 1.7 x 2.5 x 2.3 cm. Questionable upstream pancreatic ductal dilatation and parenchymal atrophy. Upper limit of normal sized spleen, measuring 11.9 cm in anterior-posterior dimension. Atrophic kidneys with cysts and extensive vascular calcifications in the renal pelvises. Question lobular contour of the uterus which may indicate fibroids. The other solid organs are unremarkable. No bowel dilation. No definitive bowel wall thickening. There are anastomotic sutures in the right lower quadrant. The appendix is not visualized and suspected to be surgically absent. No aneurysm. Marked, severe calcified atherosclerotic disease. Multiple vascular stents. Lymph nodes measure up to 1.1 cm in short axis. Moderate ascites. Severe anasarca. Anterior abdominal wall hernia repair. No acute osseous abnormality. Status post pinning of the left femoral neck. Intact hardware. Impression: Moderate ascites with severe anasarca. Marked, severe calcified atherosclerotic disease. Trace bilateral pleural effusions. Right pleural thickening with suspected round atelectasis. 2.5 cm cystic lesion in the head of the pancreas with question of upstream pancreatic ductal dilatation and parenchymal atrophy. This could be the sequela of chronic pancreatitis. Evaluate further with nonemergent pancreatic mass protocol CT or MR to exclude malignancy. External Record Review External record reviewed: Inpatient record, Office record and Outpatient record Discharge Plan Discharge Clinical Impression: Closed fracture of left elbow Qualifiers: Encounter type: initial encounter Qualified Code(s): S42.402A - Unspecified fracture of lower end of left humerus, initial encounter for closed fracture Contusion of hip, left Qualifiers: Encounter type: initial encounter Qualified Code(s): S70.02XA - Contusion of left hip, initial encounter Patient Disposition: Home, Self-Care Instructions: Elbow Fracture (DC), How to Use a Sling (ED), Contusion in Adults (ED), Hip Contusion (ED) Additional Instructions: You were evaluated in the emergency department today for injuries sustained after a fall. Your x-ray showed evidence of a small left elbow fracture and your elbow was placed in a sling. Follow-up with your orthopedic doctor for further evaluation and management of this injury. Keep your appointment at the end of the month with your orthopedist. If you are unable to follow up with your orthopedic doctor, you can follow up with [facility] orthopedics. We recommend 650 mg of Tylenol every 6 hours as needed for pain. You can also apply ice for 10-15 minutes at a time several times daily, using caution not to apply ice directly to skin. You were provided with the results of the CT scan performed of your abdomen. Please follow-up with your primary care provider and sewing machine attachment tester regarding the results. Return to the emergency department if you experience worsening pain, numbness, tingling, change of color in your arm or leg, or any other concerning symptoms. CT Abdomen/Pelvis results: Impression: Moderate ascites with severe anasarca. Marked, severe calcified atherosclerotic disease. Trace bilateral pleural effusions. Right pleural thickening with suspected round atelectasis. 2.5 cm cystic lesion in the head of the pancreas with question of upstream pancreatic ductal dilatation and parenchymal atrophy. This could be the sequela of chronic pancreatitis. Evaluate further with nonemergent pancreatic mass protocol CT or MR to exclude malignancy. Prescriptions: No Action carvedilol 25 mg Tablet 25 mg PO BID Rx Instructions: must administer with a meal/food acetaminophen 325 mg Tablet 650 mg PO Q6H PRN (Reason: Fever) sucralfate 1 gram Tablet 1 g PO QIDACHS isosorbide mononitrate 30 mg Tablet Extended Release 24 Hr 30 mg PO DAILY pantoprazole 40 mg Tablet,Delayed Release (Dr/Ec) 40 mg PO DAILY@0630 diphenhydramine HCl 25 mg Tablet 25 mg PO BID PRN (Reason: itchiness) docusate sodium 100 mg Capsule 100 mg PO BID PRN (Reason: Constipation) insulin lispro 200 unit/mL (3 mL) Insulin Pen 2 - 10 sliding scale dose SUBCUT TID Rx Instructions: if 150-199 = 2 units, 200-249 = 4 units, 250-299 = 6 units, 300-349 = 8 units, 350-399 = 10 units, 400+ call linezolid 600 mg tablet 600 mg PO BID 30 Days Qty: 60 1RF Referrals: [facility] Orthopedic Surgeons [Provider Group] Clinical Impression: Closed fracture of left elbow Print Language: Yakut
[2024-11-27 12:37] LABS: MANUAL DIFF FLAG NO
[2024-11-27 12:38] LABS: Hematocrit 35.1 % (37.0-47.0); Hemoglobin 10.7 g/dl (12.0-16.0); Imm Gran Abs Auto 0.02 X10*3/uL (0.00-0.03); Imm Gran Pct Auto 0.3 % (0.0-0.4); Lymphocytes Absolute Auto 0.5 X10*3/uL (1.2-4.9); Mean Corpuscular HGB Conc 30.5 g/dl (31.0-35.0); Mean Corpuscular Hemoglobin 27.6 pg (27.0-33.0); Mean Corpuscular Volume 90.5 fL (80.0-98.0); NRBC Abs Auto 0.000 X10*3/uL (0.0-0.012); NRBC Pct Auto 0.0 /100WBC (0.0-0.2); Platelet Count 122 X10*3/uL (160-400); Red Blood Count 3.88 X10*6/uL (4.20-5.50); White Blood Count 5.8 X10*3/uL (4.8-10.8)
[2024-11-27 12:57] LABS: Alanine Aminotransferase < 6 U/L (0-31); Albumin Level 3.3 g/dL (3.5-5.0); Alkaline Phosphatase 111 U/L (39-117); Anion Gap 15 (12-20); Aspartate Amino Transferase 20 U/L (5-31); Blood Urea Nitrogen 40 mg/dL (9-16); Calcium 8.2 mg/dL (8.4-10.2); Carbon Dioxide 24 mmol/L (22-29); Chloride 103 mmol/L (96-108); Creatinine Clr Calc Pharmacy 12.9; Estimated Glomerular Filt Rate 10; Potassium 4.3 mmol/L (3.3-5.1); Sodium 138 mmol/L (135-145); Total Protein 7.0 g/dL (6.5-8.0)
[2024-11-27] MEDS: Diphth,Pertus(ACell),Tet Adult 0.5 ML SYRINGE IM (14:48)
[2024-11-27 14:51] VITALS: BP 171/80; PULSE 63; RESP 16; O2SAT 100
[2024-11-27 15:35] VITALS: BP 168/86; PULSE 59; RESP 16; TEMP 36.5; O2SAT 100
[2024-11-27 15:57] VITALS: BP 168/86; PULSE 59; RESP 16; TEMP 36.5; O2SAT 100
== END 2024-11-27 16:04 | disposition home or self-care (01) ==
PROVIDERS: Emergency Provider Emergency Medicine Emergency Medical Services; PCP Family Medicine
DX: S42.402A Unspecified fracture of lower end of left humerus, initial encounter for closed fracture (principal); S70.02XA Contusion of left hip, initial encounter; S50.312A Abrasion of left elbow, initial encounter; W10.1XXA Fall (on)(from) sidewalk curb, initial encounter; M25.522 Pain in left elbow; M25.552 Pain in left hip; Y93.E8 Activity, other personal hygiene; Y92.59 Other trade areas as the place of occurrence of the external cause; Y99.8 Other external cause status; Z23 Encounter for immunization
CPT/HCPCS: 36415; 73080; 73502; 74176; 80053; 85025; 90471; 90715; 99284

== ENCOUNTER → 2024-11-27 09:35 | Outpatient (BNV) | payer MEDICARE, OTHER, SELFPAY | PROVIDERS: PCP Family Medicine; Visit Provider Radiology Diagnostic Radiology | DX: R18.8 Other ascites (principal); M16.12 Unilateral primary osteoarthritis, left hip; S52.042A Displaced fracture of coronoid process of left ulna, initial encounter for closed fracture | CPT/HCPCS: 74176 ==

== ENCOUNTER 2024-12-14 08:15 | Outpatient (REF) | payer MEDICARE, OTHER, SELFPAY ==
--- OUTSIDE RECORDS SUMMARY | 2024-07-02 06:30 | XMS_ITS ---
Author Organization [facility] Address [address] [place] [address] Care Team Providers Care Calibration Checker Name Role Phone Jah Miryam Unavailable [phone] Encounters Encounter Location Date Provider Diagnosis [address] [address] 07/02/2024 Miryam Tyson Plan Of Treatment No Information Progress Notes * Farhan BEARDaDOB:1960 (64 yo F)Acc No.[id number]:07/02/2024 Progress Notes Patient: Alix SHEARER Provider: Esvin Tyson DPM :1960 A ge:64 Y S ex:Female Date:07/02/2024 Address:[address] [place], [place] [phone] Subjective: * Chief Complaints: * * Medical History: Objective: * Vitals: Assessment: Plan: * Treatment: * Images: * The named appointment provid er may or may not be the originator of this progress note, and it is not deemed complete until electronically signed by the appointment provider. Sign off status: Pending * Provider: Esvin Tyson DPM Date: 0 07/02/2024 Generated for Michael santos/Chloe/Oraliaitting on: 12/14/2024 03:35 PM EDT
--- OUTSIDE RECORDS SUMMARY | 2024-12-14 15:34 | XMS_ITS | Encounter Summary ---
Author Organization [email or web address] Address [address] [place] [address] Care Team Providers Care Maintenance Technician Name Role Phone Marita Wetzel DO Primary Care Provider + [phone] Reason for Visit * Reason Onset Date Comments Hospital Follow-up 06/11/2024 Encounter Details Date Type Department Care Team ([facility] st Contact Info) Description 06/11/2024 Telephone [facility] [address] [place] [address] Marita Wetzel DO [address] [place], [place] [phone] Hospital Follow-up Social History Tobacco Use Types [...] from pt requesting a HDF appt. [place] [facility] [place] admission: 05/31/2024 Discharge date: ------ Diagnosed:kidney failure *Send message to [place] Clinical Care Coordinators documented in this encounter Plan of Treatment Upcoming Encounters Date Type Department Care Team (Late st Contact Info) Description 12/27/2024 10:15 AM EDT Office Visit [facility] [address] [place], [place] [phone] Marita Wetzel DO [address] [place] [address] documented as of this encounter Goals Goal Patient Goal Type Associated Problems Recent Progress Patient-Stated? Author Hemoglobin A1c < 7 Result Component 6.4( 5 11:38 AM EDT) No Puia, Carmen, PharmD Record [...] documented as of this encounter Care Teams Maintenance Technician Relationship Specialty Start Date End Date Marita Wetzel DO [address] [place] [id number] PCP - General Family Medicine 04/21/18 [facility] 05/22/24 documented as of this encounter
--- OUTSIDE RECORDS SUMMARY | 2024-12-14 15:34 | XMS_ITS | Encounter Summary ---
Author Organization [facility] Address [address] [place] [address] Care Team Providers Care Bill Peddler Name Role Phone Marita Wetzel DO Primary Care Provider [phone]- [phone] Encounter Details Date Type Department Care Team (Late st Contact Info) Description 05/30/2024 Lab Requisition [facility] - Main Lab [address] [facility] [place] [phone] Marily Gordillo MD [address] [place] [phone] Chronic embolism and thrombosis of unspecified vein; [...] unspecified documented in this encounter Care Teams Bill Peddler Relationship Specialty Start Date End Date Marita Wetzel DO [address] [place], [place] PCP - General 01/09/23 documented as of this encounter
--- OUTSIDE RECORDS SUMMARY | 2024-12-14 15:34 | XMS_ITS | Encounter Summary ---
Author Organization [facility] Address [address] [place] [address] Phone Care Team Providers Care Airplane Gastank Liner Assembler Name Role Phone Marita Wetzel DO Primary Care Provider Unava ilable Encounter Details Date Type Department Care Team (Late st Contact Info) Description 12/09/2022 Documentation Only [facility] [address] [place] [phone] Candace Adam PA [address] [place] [address] [place] [phone] Social History Tobacco Use Types Packs/Day Years [...] Services Of [facility] Vascular Access [address] [place] [phone] 03/08/2025 12:30 PM EST Scheduled Only [facility] Vascular Access [address] [place] [phone] documented as of this encounter Visit Diagnoses Not on filedocumented in this encounter Care Teams Airplane Gastank Liner Assembler Relationship Specialty Start Date End Date Marita Wetzel DO [address] [place] [address] PCP - General Family Medicine 11/14/22 documented as of this encounter
--- OUTSIDE RECORDS SUMMARY | 2024-12-14 15:34 | XMS_ITS | Encounter Summary ---
Author Organization [facility] [place], Address [address] [place] [address] Phone Care Team Providers Care Quality Assurance Monitor Name Role Phone Marita Wetzel DO Primary Care Provider Unava ilable Encounter Details Date Type Department Care Team (Late st Contact Info) Description 04/02/2023 Documentation Only [facility] [place] [phone] Bernardo Doty MD [address] [facility] [place] [phone] Social History Tobacco Use Types Packs/Day Years [...] [facility] [address] [facility] [place] [address] 03/08/2025 12:30 PM EST Scheduled Only [facility] V[facility] Center [address] [place] [address] documented as of this encounter Visit Diagnoses Not on filedocumented in this encounter Care Teams Quality Assurance Monitor Relationship Specialty Start Date End Date Marita Wetzel DO [address] [place] [address] PCP - General Family Medicine 11/14/22 documented as of this encounter
--- OUTSIDE RECORDS SUMMARY | 2024-12-14 15:34 | XMS_ITS | Encounter Summary ---
Author Organization [facility] Address [address] [place] [address] Care Team Providers Care Real Estate Management Specialist Name Role Phone Marita Wetzel DO Primary Care Provider [phone]- [phone] Encounter Details Date Type Department Care Team (Late st Contact Info) Description 05/31/2024 Lab Requisition [facility] - Main Lab [address] [facility] [employer] [place] [phone] Marily Gordillo MD [address] [place] [address] Acute kidney failure, unspecified (CMS/HCC [...] unspecified documented in this encounter Care Teams Real Estate Management Specialist Relationship Specialty Start Date End Date Marita Wetzel DO [address] [place], [place] PCP - General 01/09/23 documented as of this encounter
--- OUTSIDE RECORDS SUMMARY | 2024-12-14 15:34 | XMS_ITS | Encounter Summary ---
Author Organization [employer] Address [address] [facility] 7t [place] [address] Care Team Providers Care Divinity Professor Name Role Phone Marita Wetzel DO Primary Care Provider [phone] Carmen Becker PharmD Unavailable [phone] Reason for Visit * Reason Onset Date Comments Prior Authorization 04/25/2023 [employer] Encounter Details Date Type Department Care Team (Late st Contact Info) Description 04/25/2023 Telephone [facility] MEDICINE [address] [place] [address] Marita Wetzel DO [address] [place] [address] Prior Authorization ([employer]) Social History Tobacco Use Types Packs/Day Years Used Date Smoking Tobacco: Never Passive Smoke Exposure: Never Smokeless Tobacco: Never Alcohol Use Standard Drinks/Week Comments Never 0 (1 standard drink = 0.6 oz pur e alcohol) Depression Answer Date Recorded Patient Health Questionnaire-9 Score 0 10/08/2022 Housing Stability Answer Date Recorded What is your housing situation today? I have nayejared garcia 01/27/[address] you [...] Description 12/27/2024 10:15 AM EDT Office Visit [facility] MEDICINE [address] [place], [place] [phone] Marita Wetzel DO [address] [place] [address] documented as of this encounter Visit Diagnoses Not on filedocumented in this encounter Additional Health Concerns Assessment Noted Time PHQ-9 Depression Total Score: 0 10/09/19 23 9:31 AM EDT documented as of this encounter Care Teams Divinity Professor Relationship Specialty Start Date End Date Marita Wetzel DO [address] [place] [address] PCP - General Family Medicine 04/21/18 Carmen Becker PharmD [address] [place] [address] Pharmacist Internal Medicine 07/21/23 01/21/24 [facility] 05/22/24 documented as of this encounter
--- OUTSIDE RECORDS SUMMARY | 2024-12-14 15:34 | XMS_ITS | Encounter Summary ---
Author Organization [employer] Address [address] [facility] 7t [place] [address] Care Team Providers Care Contour Grinder Name Role Phone Marita Wetzel DO Primary Care Provider [phone] Carmen Becker PharmD Unavailable [phone] Encounter Details Date Type Department Care Team ([facility] Contact Info) Description 10/14/2022 Abstract [facility] MEDICINE [address] [place] [address] Marita Wetzel DO [address] [place] [address] Social History Tobacco Use Types Packs/Day Years [...] Upcoming Encounters Date Type Department Care Team ([facility] Contact Info) Description 12/27/2024 10:15 AM EDT Office Visit [facility] MEDICINE [address] [place] [address] Marita Wetzel DO [address] [place] [address] documented as of this encounter Visit Diagnoses Not on filedocumented in this encounter Additional Health Concerns Assessment Noted Time PHQ-9 Depression Total Score: 0 10/09/19 23 9:31 AM EDT documented as of this encounter Care Teams Contour Grinder Relationship Specialty Start Date End Date Marita Wetzel DO [address] [place], [place] [phone] PCP - General Family Medicine 04/21/18 Carmen Becker PharmD [address] [place] [address] Pharmacist Internal Medicine 07/21/23 01/21/24 [facility] 05/22/24 documented as of this encounter
--- OUTSIDE RECORDS SUMMARY | 2024-12-14 15:34 | XMS_ITS | Encounter Summary ---
Author Organization [facility] Address [address] [place] [address] Phone Care Team Providers Care School Services Officer Name Role Phone Marita Wetzel DO Primary Care Provider Unava ilable Encounter Details Date Type Department Care Team (Late st Contact Info) Description 09/26/2022 Documentation Only [facility] Of [address] [place] [phone] Candace Adam PA [address] [place] [address] [place] [phone] Social History Tobacco Use Types Packs/Day Years [...] Support [facility] Vascular Access [address] [place] [phone] 03/08/2025 12:30 PM EST Scheduled Only [facility] Vascular Access [address] [place] [phone] documented as of this encounter Visit Diagnoses Not on filedocumented in this encounter Care Teams School Services Officer Relationship Specialty Start Date End Date Marita Wetzel DO [address] [place] [address] PCP - General Family Medicine 11/14/22 documented as of this encounter
--- OUTSIDE RECORDS SUMMARY | 2024-12-14 15:34 | XMS_ITS | Encounter Summary ---
Author Organization [employer] Address [address] [facility] 7 [place] [address] Care Team Providers Care Supervisor Evaporator Name Role Phone Marita Wetzel DO Primary Care Provider + [phone] Reason for Visit * Reason Onset Date Comments Med Refill 06/25/2024 Encounter Details Date Type Department Care Team (Late st Contact Info) Description 06/25/2024 Telephone [facility] MEDICINE [address] [place] [address] Marita Wetzel DO [address] [place], [place] [phone] Med Refill Social History Tobacco Use Types [...] 1 g tablet To be sent to: [facility]/pharmacy #[address] [place] [address] *states it was prescribed before documented in this encounter Plan of Treatment Upcoming Encounters Date Type Department Care Team (Late st Contact Info) Description 12/27/2024 10:15 AM EDT Office Visit [facility] MEDICINE [address] [place] [address] Marita Wetzel DO [address] [place] [address] documented as of this encounter Goals Goal Patient Goal Type Associated Problems Recent Progress Patient-Stated? Author Hemoglobin A1c < 7 Result Component 6.4( 11:38 AM EDT) No PuCarmen murphy, PharmD Record your blood sugar as directed Result Component No PuJonathon murphyyssa, PharmD Note: Use CGM, ensuring sensor is scanned at least once every 8 hours to capture 24H data. Check BG manually, as directed. documented as of this encounter Visit Diagnoses Not on filedocumented in this encounter Additional Health Concerns Assessment Noted Time PHQ-9 Depression Total Score: 0 10/09/19 23 9:31 AM EDT documented as of this encounter Care Teams Supervisor Evaporator Relationship Specialty Start Date End Date Marita Wetzel DO [address] [place] [address] PCP - General Family Medicine 04/21/18 [facility] 05/22/24 documented as of this encounter
--- OUTSIDE RECORDS SUMMARY | 2024-12-14 15:34 | XMS_ITS | Encounter Summary ---
Author Organization [facility] Address [address] [place] [address] Phone Care Team Providers Care Supervisor Histology Name Role Phone Marita Wetzel DO Primary Care Provider Unava ilable Encounter Details Date Type Department Care Team (Late st Contact Info) Description 05/20/2023 Documentation Only [facility] Of [address] [place] [phone] [place], [place], [place] [address] [place] [phone] Social History Tobacco Use Types Packs/Day Years [...] Of [facility] Vascular Access Center [address] [facility] [address] [place] [phone] 03/08/2025 12:30 PM EST Scheduled Only [facility] Vascular Access Center [address] [facility] [address] [place] [phone] documented as of this encounter Visit Diagnoses Not on filedocumented in this encounter Care Teams Supervisor Histology Relationship Specialty Start Date End Date Marita Wetzel DO [address] [place] [address] PCP - General Family Medicine 11/14/22 documented as of this encounter
--- OUTSIDE RECORDS SUMMARY | 2024-12-14 15:34 | XMS_ITS | Encounter Summary ---
Author Organization [employer] Address [address] [facility] 7t [place] [address] Care Team Providers Care Rehab/Pre Vocational Counselor Name Role Phone DamariMarita Primary Care Provider + [phone] Encounter Details Date Type Department Care Team ([facility] st Contact Info) Description 12/08/2024 Orders Only [facility] MEDICINE [address] [place] [address] Cherry Landa MD [address] [place] [address] Social History Tobacco Use Types Packs/Day Years Used Date Smoking Tobacco: Never Passive Smoke Exposure: Never Smokeless Tobacco: Never Alcohol Use Standard Drinks/Week Comments Never 0 (1 standard drink = 0.6 oz pur e alcohol) Depression Answer Date Recorded Patient Health Questionnaire-9 Score 0 10/08/2022 Housing Stability Answer Date Recorded What is your housing situation today? I have naye jose 05/20/[address] you li [...] Description 12/27/2024 10:15 AM EDT Office Visit [facility] MEDICINE [address] [place], [place] [phone] Marita Wetzel DO [address] [place], [place] [phone] documented as of this encounter Goals Goal Patient Goal Type Associated Problems Recent Progress Patient-Stated? Author Hemoglobin A1c < 7 Result Component 6.4( 11:38 AM EDT) No Carmen Becker, PharmD Record [...] documented as of this encounter Care Teams Rehab/Pre Vocational Counselor Relationship Specialty Start Date End Date Marita Wetzel DO [address] [place], [place] [phone] PCP - General Family Medicine 04/21/18 [facility] 05/22/24 documented as of this encounter
--- OUTSIDE RECORDS SUMMARY | 2024-12-14 15:34 | XMS_ITS | Encounter Summary ---
Author Organization [employer] Address [address] [facility] 7t [place] [address] Care Team Providers Care Senior Specialist Name Role Phone Marita Wetzel DO Primary Care Provider + [phone] Reason for Visit * Reason Onset Date Comments CGM PA 12/09/2024 Encounter Details Date Type Department Care Team (Late st Contact Info) Description 12/09/2024 Refill [facility] MEDICINE [address] [place] [address] Faye Batista RN [address] [place] [address] Type 2 diabetes mellitus with stage 3b chronic kidney disease, with long-term current use of insulin ([facility]) Social History Tobacco Use Types Packs/Day Years Used Date Smoking Tobacco: Never Passive Smoke Exposure: Never Smokeless Tobacco: Never Alcohol Use Standard Drinks/Week Comments Never 0 (1 standard drink = 0.6 oz pur e alcohol) Depression Answer Date Recorded Patient Health Questionnaire-9 Score 0 10/08/2022 Housing Stability Answer Date Recorded What is your housing situation today? I have nayejared garcia 05/20/[address] you [...] encounter Miscellaneous Notes * Telephone Encounter - Faye Batista RN - 12/14/2024 9:57 AM EDT Continuous Glucose Monitor Prior Authorization Documentation: CGM PA initiated for: CGM DEVICE: [employer] Insurance: Medicare PA form completed and faxed to [facility] pharmacy. Patient's preferred pharmacy: [facility]/pharmacy #[id number] - [place], [place] - [address] [facility] [address] [facility] [address] [facility]/pharmacy #[id number] - [place], [place] - [address] [facility] [address] [facility] [address] [facility] - [place], [place] - [address] [facility] 230 [facility] [phone] CGM PA should be approved by: 12/21/24 Pt. Has been on CGM in the past so may or may not need teaching appointment. Will ask pt. Once supplies are approved. Will call pharmacy in 1 week to check on status of PA. * Telephone Encounter - Faye Batista RN - 12/09/2024 3:19 PM EDT Due to medicare insurance, please resend rxs to [facility] pharmacy. Please task back when done, thanks! documented in this encounter Plan of Treatment Upcoming Encounters Date Type Department Care Team (Late st Contact Info) Description 12/27/2024 10:15 AM EDT Office Visit [facility] MEDICINE [address] [place] [address] Marita Wetzel DO [address] [place] [address] documented as of this encounter Goals Goal Patient Goal Type Associated Problems Recent Progress Patient-Stated? Author Hemoglobin A1c < 7 Result Component 6.4( 11:38 AM EDT) No Carmen Becker, PharmSalvatore Record your blood sugar as directed Result Component No Carmen Becker PharmD Note: Use CGM, ensuring sensor is scanned at least once every 8 hours to capture 24H data. Check BG manually, as directed. documented as of this encounter Visit Diagnoses Diagnosis Type 2 diabetes mellitus with stage 3b chronic kidney disease, with long-term current use of insulin ([facility]) documented in this encounter Additional Health Concerns Assessment Noted Time PHQ-9 Depression Total Score: 0 10/09/19 23 9:31 AM EDT documented as of this encounter Care Teams Senior Specialist Relationship Specialty Start Date End Date Marita Wetzel DO [address] [place] [address] PCP - General Family Medicine 04/21/18 [facility] 05/22/24 documented as of this encounter
--- OUTSIDE RECORDS SUMMARY | 2024-12-14 15:34 | XMS_ITS | Patient Health Record ---
Author Organization [facility] Address [address] [place] [address] Care Team Providers Care Ob Nurse Name Role Phone FiorellasylwiaMiryam Unavailable [phone] Reason For Referral No Information Encounters Encounter Location Date Provider Diagnosis [facility] [address] [place] [address] 04/22/2024 Miryam Tyson [facility] [address] [place] [address] 06/17/2024 Miryam Tyson Plan Of Treatment No Information Insurance Providers Payer Name Payer Address Payer Phone Subscriber Number Group Number Insured Name Patient Relationship to Insured Coverage Start Date Coverage End Date Medicare [facility] [address] [place] [address] [id number] Alix Sharp Self - patient is the insured for Life [address] [place] [phone] [id number] Alix Sharp Self - patient is the insured
--- OUTSIDE RECORDS SUMMARY | 2024-12-14 15:34 | XMS_ITS | Encounter Summary ---
Author Organization [facility] [place] [address] [place] [place] [address] Phone Care Team Providers Care Safety Pin Assembling Machine Operator Name Role Phone Fouzia Wetzelfer Primary Care Provider Unava ilable Encounter Details Date Type Department Care Team (Late st Contact Info) Description 03/18/2023 Documentation Only [facility] Of [address] [place] [phone] Srinivas Agrawal MD [address] [place] [address] [place] [address] Social History Tobacco Use Types [...] Support [facility] Vascular Access [address] [place] [address] 03/08/2025 12:30 PM EST Scheduled Only [facility] Of [facility] Vascular Access [address] [place] [phone] documented as of this encounter Visit Diagnoses Not on filedocumented in this encounter Care Teams Safety Pin Assembling Machine Operator Relationship Specialty Start Date End Date Marita Wetzel DO [address] [place] [address] PCP - General Family Medicine 11/14/22 documented as of this encounter
--- OUTSIDE RECORDS SUMMARY | 2024-12-14 15:34 | XMS_ITS | Encounter Summary ---
Author Organization [facility] Address [address] [place] [address] Phone Care Team Providers Care Rural Electrification Engineer Name Role Phone Marita Wetzel DO Primary Care Provider Unava ilable Encounter Details Date Type Department Care Team (Late st Contact Info) Description 12/31/2022 Documentation Only [facility] Of [address] [place] [phone] Candace Adam PA [address] [place] [address] [place] [phone] Social History Tobacco Use Types Packs/Day Years [...] Services Of [facility] Vascular Access [address] [place] [phone] 03/08/2025 12:30 PM EST Scheduled Only [facility] Vascular Access [address] [place] [phone] documented as of this encounter Visit Diagnoses Not on filedocumented in this encounter Care Teams Rural Electrification Engineer Relationship Specialty Start Date End Date Marita Wetzel DO [address] [place] [address] PCP - General Family Medicine 11/14/22 documented as of this encounter
--- OUTSIDE RECORDS SUMMARY | 2024-12-14 15:34 | XMS_ITS | Encounter Summary ---
Author Organization [facility], [place] [place] [address] Phone Care Team Providers Care Transfusion Nurse Name Role Phone Marita Wetzel DO Primary Care Provider Unava ilable Encounter Details Date Type Department Care Team (Late st Contact Info) Description 12/08/2024 Orders Only [facility] [address] [place] [phone] Srinivas Agrawal MD [address] [place] [address] [place] [phone] Social History Tobacco Use Types Packs/Day Years [...] Department Care Team (Late Contact Info) Description 12/22/2024 9:30 AM EDT Clinical Support [facility] [address] [place] [address] [place] [phone] 03/08/2025 12:30 PM EST Scheduled Only [facility] [address] [place] [address] [place] [phone] documented as of this encounter Procedures Procedure Name Priority Date/Time Associated Diagnosis Comments IMMUNO CHEMISTRY Routine 12/08/2024 HEMATOLOGY Routine 12/08/2024 CHEMISTRY Routine 12/08/2024 CHEMISTRY Routine 12/08/2024 documented in this encounter Results * IMMUNO CHEMISTRY (12/08/2024) Pathologist [facility] Hep B Surface Ag Negative Negative [facility] 12/08/2024 12/09/2024 8:2 1 AM EDT Narrative [facility] - 12/09/2024 Unless otherwise specified, test(s) performed at: [facility], [address] [place] [address] HEALTH CARE FACILITIES INSPECTOR: Dwayne Fuentes M.D. For any questions, please call customer service at FREQUENCY:MONTHLY Resulting Agency Comment Specimen source: Serum Srinivas Agrawal MD LAB BLOOD ORDERABLES Final Result Performing Organization Address [facility] [place] de Phone Number [employer] See order comments or contact performing lab Unknown, [place] * (ABNORMAL) HEMATOLOGY (12/08/2024) Pathologist [facility] Hemoglobin 10.8(L) 12.0 - 16.0 g/dL [facility] Hemoglobin x 3 32.4(L) 36.0 - 48.0 % [facility] 12/08/2024 12/09/2024 8:0 2 AM EDT Narrative [facility] - 12/09/2024 Unless otherwise specified, test(s) performed at: [facility], [address] [place] [address] HEALTH CARE FACILITIES INSPECTOR: Dwayne Fuentes M.D. For any questions, please call customer service at FREQUENCY:MONTHLY Resulting Agency Comment Specimen source: Blood Srinivas Agrawal MD LAB BLOOD ORDERABLES Final Result Performing Organization Address [facility]/ZIP Co de Phone Number [employer] See order comments or contact performing lab Unknown, [place] * (ABNORMAL) [facility] Chemistry (12/08/2024) PTH 495(H) 16 - 80 pg/mL [facility] 12/08/2024 12/09/2024 8:2 3 AM EDT Narrative [facility] - 12/09/2024 Unless otherwise specified, test(s) performed at: [facility], [address] [place], [place] [id number] HEALTH CARE FACILITIES INSPECTOR: Dwayne Fuentes M.D. For any questions, please call customer service at FREQUENCY:MONTHLY Resulting Agency Comment Specimen source: Plasma Srinivas Agrawal MD LAB BLOOD ORDERABLES Final Result [facility] See order comments or contact performing lab Unknown, [place] * (ABNORMAL) [facility] Chemistry (12/08/2024) Pathologist [facility] Ferritin 766(H) 10 - 291 ng/mL [facility] Creatinine 6.75(H) 0.60 - 1.30 mg/dL [facility] Sodium 132(L) 136 - 145 mEq/L [facility] Potassium 4.0 3.5 - 5.1 mEq/L [facility] Chloride 97 96 - 108 mEq/L [facility] Bicarbonate (CO2) 22 22 - 29 mEq/L [facility] Calcium 8.8 8.4 - 10.2 mg/dL [facility] Corrected Calcium 9.2 8.4 - 10.2 mg/dL [facility] Comment: Corrected Calcium is not equivalent to measured Ionized Calcium. Phosphorus 4.3 2.6 - 4.5 mg/dL [facility] Calcium Phosphorus Product 38 0 - 54 [facility] Calcium Phosporus Product, Cor 40 0 - 54 [facility] ALT (SGPT) 7 7 - 52 U/L [facility] Albumin 3.5 3.5 - 5.2 g/dL [facility] Magnesium 1.8 1.6 - 2.6 mg/dL [facility] Iron 59 30 - 160 mcg/dL [facility] UIBC 185 155 - 355 mcg/dL [facility] TIBC 244 185 - 515 mcg/dL [facility] Iron Saturation (TSat) 24 20 - 55 % [facility] 12/08/2024 12/09/2024 8:2 1 AM EDT Narrative [facility]ANT[facility] - 12/09/2024 Unless otherwise specified, test(s) performed at: [facility], [address] [place] [address] HEALTH CARE FACILITIES INSPECTOR: Dwayne Fuentes M.D. For any questions, please call customer service at FREQUENCY:MONTHLY Resulting Agency Comment Specimen source: Serum Srinivas Agrawal MD LAB BLOOD ORDERABLES Edite d Result - Final [facility] See order comments or contact performing lab Unknown, [place] documented in this encounter Visit Diagnoses Not on filedocumented in this encounter Care Teams Transfusion Nurse Relationship Specialty Start Date End Date Marita Wetzel DO [address] [place] [address] PCP - General Family Medicine 11/14/22 documented as of this encounter
--- OUTSIDE RECORDS SUMMARY | 2024-12-14 15:34 | XMS_ITS | Encounter Summary ---
Author Organization [facility] Address [address] [place] [address] Phone Care Team Providers Care Pipeman Name Role Phone Marita Wetzel DO Primary Care Provider Unava ilable Encounter Details Date Type Department Care Team (Late st Contact Info) Description 12/06/2022 Documentation Only [facility] [address] [place] [phone] [place], [place] [address] [place] [phone] Social History Tobacco Use Types Packs/Day Years [...] [facility] - Vascular Access Center [address] [place] [phone] 03/08/2025 12:30 PM EST Scheduled Only [facility] Center [address] [place] [phone] documented as of this encounter Visit Diagnoses Not on filedocumented in this encounter Care Teams Pipeman Relationship Specialty Start Date End Date Marita Wetzel DO [address] [place] [address] PCP - General Family Medicine 11/14/22 documented as of this encounter
--- OUTSIDE RECORDS SUMMARY | 2024-12-14 15:34 | XMS_ITS | Encounter Summary ---
Author Organization [facility], Address [address] [place] [address] Phone Care Team Providers Care Violin Tutor Name Role Phone Marita Wetzel DO Primary Care Provider Unava ilable Reason for Visit * Reason Comments Med Refill Encounter Details Date Type Department Care Team (Late Contact Info) Description 12/06/2020 Refill [facility] [address] [place] [phone] Bernardo Doty MD [address] [place] [phone] Social History Tobacco Use Types Packs/Day Years [...] [facility] Access Center [address] [facility] [address] [place] [address] 03/08/2025 12:30 PM EST Scheduled Only [facility] [address] [facility] [address] [facility] [place] [phone] documented as of this encounter Visit Diagnoses Not on filedocumented in this encounter Care Teams Violin Tutor Relationship Specialty Start Date End Date Marita Wetzel DO [address] [place] [address] PCP - General Family Medicine 11/14/22 documented as of this encounter
--- OUTSIDE RECORDS SUMMARY | 2024-12-14 15:34 | XMS_ITS | Clinical Summary ---
Author Organization [facility] Address [address] [place] [address] Phone Care Team Providers Care Horticulture Supervisor Name Role Phone Bernardo Doty MD Unavailable Marita Wetzel DO Primary Care Provider [phone] Allergies Active Allergy Reactions Criticality Noted Date [...] mg by mouth daily. 08/26/2021 Active cloNIDine ([id number] ) 0.2 mg/[address] 1 patch [...] EDT Hospital Encounter [facility] Specimen Processing [address] [place] [address] Srinivas Agrawal MD Discharge Disposition: Home or Self Care 09/27/2024 Transcribe Orders [facility] Specimen Processing [address] [place] [address] Srinivas Agrawal MD Screening for unspecified condition (Primary Dx) 09/15/2024 11:54 AM EDT - 09/15/2024 11:59 PM EDT Hospital Encounter [facility] Specimen Processing [address] [place] [address] Bernardo Doty MD Discharge Disposition: Home or Self Care 09/15/2024 Transcribe Orders [facility] Specimen Processing [address] [place] [address] Bernardo Doty MD Screening for unspecified condition (Primary Dx) 09/15/2024 Transcribe Orders [facility] Specimen Processing [address] [place] [address] Bernardo Doty MD Iron deficiency anemia, unspecified [...] Health Maintenance Due Date Last Done Comments BLOOD PRESSURE 1960 DEPRESSION SCREENING 1972 PAP SMEAR 1981 COLOGUARD 2005 COLONOSCOPY 2005 COLORECTAL CANCER SCREENING 2005 FIT TEST 2005 FOBT 2005 SIGMOIDOSCOPY 2005 VIRTUAL COLONOSCOPY 2005 ZOSTER VACCINES (1 of 2) 2010 DIABETIC EYE EXAM 06/10/2014 LIPID PANEL 11/26/2022 11/26/2021 HEMOGLOBIN A1C 02/08/2023 08/09/2022, 0404/2022, 07/18/2022, Additional history exists COVID-19 VACCINE (2023- [...] included. HGB 7.3(L) 12.0 - 16.0 g/dL [facility] Blood 09/27/2024 5:44 PM EDT 09/27/2024 5:48 PM EDT us Srinivas Agrawal MD LAB BLOOD ORDERABLES Fin al Result [address] [address] * (ABNORMAL) Comprehensive metabolic panel (05/03/2024 3:27 PM EST) SODIUM 135 133 - 146 mmol/L [facility] POTASSIUM 5.9(H) 3.3 - 5.1 mmol/L [facility] CHLORIDE 96 96 - 108 mmol/L [facility] CO2 27 21 - 35 mmol/L [facility] BUN 45(H) 6 - 19 mg/dL [facility] CREATININE 3.40(H) 0.5 - 1.5 mg/dL [facility] GLUCOSE 186(H) 70 - 99 mg/dL [facility] ALBUMIN 2.6(L) 3.9 - 4.8 g/dL [facility] TOTAL PROTEIN 6.2(L) 6.5 - 8.0 g/dL [facility] CALCIUM 9.0 8.4 - 10.3 mg/dL [facility] ALKALINE PHOSPHATASE 74 39 - 117 U/L [facility] TOTAL BILIRUBIN <0.2 0.0 - 1.2 mg/dL [facility] AST 9 0 - 37 U/L [facility] ALT 7 0 - 40 U/L [facility] GLOBULIN 3.6 1 - 4.8 g/dL [facility] EGFR 15(L) >59 mL/min/1.7 3m2 [facility] Comment:Estimated glomerular filtration rate calculated using the CKD-EPI refit equation. ANION GAP 18 10 - 20 mmol/L [facility] Blood 05/03/2024 3:27 PM EST 05/03/2024 8:39 PM EST us Twila CRUZ LAB BLOOD ORDERABLES Final Resu lt [address] [address] * Hepatitis C antibody, qualitative (11/26/2021 4:32 PM EDT) HCV Nonreactive Nonreactive [facility] Comment: 11/26/2021 4:32 PM EDT 11/26/2021 5:00 PM EDT us Manny Addison MD, PhD LAB BLOOD ORDERABLES Final Result [facility] [address] [place] [address] * (ABNORMAL) Hemoglobin A1c (11/26/2021 4:32 PM EDT) HEMOGLOBIN A1C 7.8(H) 4.2 - 5.6 % [facility] Comment: HbA1c levels 5.7-6.4% [...] BLOOD ORDERABLES Final Result Performing Organization Address City/[facility]/ZIP Co de Phone Number [address] [address] * (ABNORMAL) Lipid panel (11/26/2021 4:32 PM EDT) CHOLESTEROL 157 <200 mg/dL [facility] TRIGLYCERIDES 214(H) 35 - 150 mg/dL [facility] HDL 26(L) 40 - 80 mg/dL [facility] CALCULATED LDL 88 50 - 129 mg/dL [facility] VLDL 43(H) <31 mg/dL [facility] CARDIAC RISK RATIO 6.0(H) 0.0 - 4.0 [facility] 11/26/2021 4:32 PM EDT 11/26/2021 5:00 PM EDT Manny Addison MD, PhD LAB BLOOD ORDERABLES Final Result Performing Organization Address City/[facility]/ZIP Co de Phone Number [address] [address] from Last 3 Months or Most Recently Relevant to Health Maintenance Insurance MEDICARE PART A & B [employer] Insurance MEDICARE SUPPLEMENT MEDICARE PART A & B [employer] Insurance MEDICARE SUPPLEMENT Member Subscriber Plan / Payer ( fective 2024-) Name:Aron Alix B Relation to Subscriber:Self Name:Alix Sharp Payer ID:[id number] (NAIC) Group ID:Not on file Type:[facility] Address: [place] [phone] MEDICARE PART A & B [employer] Insurance MEDICARE SUPPLEMENT MEDICARE PART A & B FOR LIFE MEDICARE SUPPLEMENT MEDICARE PART A & B [facility] LIFE MEDICARE SUPPLEMENT MEDICARE PART A & B [employer] MEDICARE SUPPLEMENT MEDICARE PART A & B Care Teams Horticulture Supervisor Relationship Specialty Start Date End Date Marita Wetzel DO [address] [place] [address] PCP - General Family Medicine 03/28/22 Bernardo Doty MD [address] [place] [address] Nephrology 11/13/21 Additional Source Comments The information contained in this document represents components of the legal health record. It is not the complete legal health record.[facility]
--- OUTSIDE RECORDS SUMMARY | 2024-12-14 15:34 | XMS_ITS | Encounter Summary ---
Author Organization [facility] Address [address] [place] [address] Phone Care Team Providers Care Rf Test Technician Name Role Phone Marita Wetzel DO Primary Care Provider Unava ilable Encounter Details Date Type Department Care Team (Late st Contact Info) Description 01/01/2024 Documentation Only [facility] [address] [place] [phone] [place], [place], [place] [address] [place] [phone] Social History Tobacco Use Types Packs/Day Years [...] [facility] Vascular Access Center [address] [place] [phone] 03/08/2025 12:30 PM EST Scheduled Only [facility] Vascular Access [place] [address] [place] [phone] documented as of this encounter Visit Diagnoses Not on filedocumented in this encounter Care Teams Rf Test Technician Relationship Specialty Start Date End Date Marita Wetzel DO [address] [place] [address] PCP - General Family Medicine 11/14/22 documented as of this encounter
--- OUTSIDE RECORDS SUMMARY | 2024-12-14 15:34 | XMS_ITS | Encounter Summary ---
Author Organization [facility] Address [address] [place] [address] Phone Care Team Providers Care Chief Deputy Court Clerk Name Role Phone Marita Wetzel DO Primary Care Provider Unava ilable Encounter Details Date Type Department Care Team (Late st Contact Info) Description 05/01/2023 Documentation Only [facility] [address] [place] [phone] [place], [place] [address] [place] [phone] Social History Tobacco Use Types Packs/Day Years [...] [facility] Vascular Access Center [address] [facility] [place] [phone] 03/08/2025 12:30 PM EST Scheduled Only [facility] V[facility] Access Center [address] [place] [phone] Scheduled Orders Name Type Priority Associated Diagnoses [...] Primary documented in this encounter Care Teams Chief Deputy Court Clerk Relationship Specialty Start Date End Date Marita Wetzel DO [address] [place] [address] PCP - General Family Medicine 11/14/22 documented as of this encounter
--- OUTSIDE RECORDS SUMMARY | 2024-12-14 15:34 | XMS_ITS | Encounter Summary ---
Author Organization [facility] Address [address] [place] [address] Phone Care Team Providers Care Talent Recruiter Name Role Phone Marita Wetzel DO Primary Care Provider Unava ilable Encounter Details Date Type Department Care Team (Late st Contact Info) Description 12/08/2024 Treatment [facility], [address] [place] [address] Jeanne Bailey MD [address] [place] [address] [place] [phone] End stage renal disease; Dependence on renal [...] Dialysis Note - Jeanne Bailey MD - 12/08/2024 12:00 AM EDT BASIC NOTE Patient: Alix Sharp : 1960 [facility]: [facility] Note Author: JEANNE BAILEY MD Service Date: 12/08/2024 This patient was personally seen [id number] for a basic visit as part of routine monthly dialysis care for end stage renal disease. Attending Supervisor Area: JEANNE BAILEY Dialysis Location: [facility] Schedule: Shift: 3 OVERVIEW Patient is stable. COMMENTS: 11/01 Kt/V suboptimal increase time to 3 hours and 30 minutes. HOME MEDICATIONS [facility] Medications carvedilol 25 mg tablet Take [...] 1 tablet by mouth once a day. Sevelamer Carbonate Tablet 800 mg tablet Take 1 Tablet By Mouth Three times a day With Meals. sucralfate 1 gram tablet Take 1 tablet by mouth three times a day. [Take with meals] [facility] Allergies Allergen: codeine Reaction: Unknown Allergen: oxycodone Reaction: Unknown DIALYSIS PRESCRIPTION Treatment Data Treatment Date: 12/08/2024 started at: 11:37 AM Dialysate / Machine Temp (prescribed): 36.0*C Dialysate / Machine Temp (actual): 36.0*C BFR (prescribed): 450 BFR (average delivered): 460 DFR (prescribed): Manual 800 DFR (average delivered): 800 Prescribed Time: 03:30 Actual Time: 03:33 EDW (kg): 72.0 Dialyzer: FX CorAL 80 Dialysate: 2.0 K, 2.5 Ca, 1.0 Mg, 100 Dextrose ([id number]) Sodium: 137 Bicarb: 35 Pre Dialysis Vitals Pre BP Sit: 152/77 Pre Wt (kg): 74.0 EDW Deviation (kg): 2.0 Temp: 98.2*F Post Dialysis Vitals Post BP Sit: 157/71 Post Wt (kg): 70.0 TREATMENT MEDICATIONS ORDERS Vitamin D (Calcitriol) Oral 0.25 mcg ORAL 3X Week 10/11/2024 - 10/10/2025 BP AND FLUID ASSESSMENT Post BP Sit 157/71 - 12/08/2024 174/93 - 12/06/2024 150/65 - 12/03/2024 Post Wt (kg) 70.0 - 12/08/2024 71.8 - 12/06/2024 71.3 - 12/03/2024 EDW (kg) 72.0 - 12/08/2024 72.0 - 12/06/2024 72.0 - 12/03/2024 Deviation (kg) -2.0 - 12/08/2024 -0.2 - 12/06/2024 -0.7 - 12/03/2024 ADEQUACY ASSESSMENT spKt/V (Daugirdas II) 1.21 (12/06/24) 1.31 (11/24/24) 1.50 (11/01/24) eKdrt/V 1.03 (12/06/24) 1.12 (11/24/24) 1.28 (11/01/24) % Urea Reduction 62 (12/06/24) 67 (11/24/24) 69 (11/01/24) BUN 53 (12/06/24) 60 (11/24/24) 75 (11/01/24) BUN Post Dialysis 20 (12/06/24) 20 (11/24/24) 23 (11/01/24) Creatinine 6.75 (12/08/24) 5.49 (11/03/24) 5.54 (10/06/24) Bicarbonate (CO2) 22 (12/08/24) 23 (11/03/24) 19 (10/06/24) Sodium 132 (12/08/24) 132 (11/03/24) 135 (10/06/24) ANEMIA ASSESSMENT Hemoglobin 10.8 (12/08/24) 11.2 (12/01/24) 11.5 (11/24/24) Iron Saturation (TSat) 24 (12/08/24) 20 (11/03/24) 19 (10/06/24) Ferritin 766 (12/08/24) 1,348 (11/03/24) 1,447 (10/06/24) Iron 59 (12/08/24) 47 (11/03/24) 42 (10/06/24) TIBC 244 (12/08/24) 241 (11/03/24) 218 (10/06/24) Reticulocyte Hemoglobin 29.4 (10/06/24) 32.7 (09/22/24) 34.6 (07/07/24) MCV 100 (10/06/24) 100 (07/07/24) 94 (04/23/24) Folate 5.3 (10/06/24) Vitamin B-12 414 (10/06/24) Platelets 193 (04/20/24) 266 (02/10/24) 365 (02/03/24) BMM ASSESSMENT Calcium 8.8 12/08/24 8.7 11/03/24 8.8 10/06/24 Corrected Calcium 9.2 12/08/24 9.0 11/03/24 9.1 10/06/24 Phosphorus 4.3 12/08/24 5.2 11/03/24 4.7 10/06/24 Calcium Phosphorus Product 38 12/08/24 45 11/03/24 41 10/06/24 PTH 495 12/08/24 507 11/03/24 279 10/06/24 Vitamin D, 25-OH, Total 42.2 10/06/24 48.2 04/23/24 Magnesium 1.8 12/08/24 1.8 11/03/24 1.8 10/06/24 Alkaline Phosphatase 175 10/06/24 105 07/07/24 54 04/23/24 Aluminum 31 1/10/25 97 04/23/24 NUTRITION ASSESSMENT Albumin 3.5 12/08/24 3.6 11/03/24 3.6 10/06/24 Potassium 4.0 12/08/24 4.6 11/05/24 4.0 11/03/24 eNPCR 0.70 12/06/24 0.90 11/24/24 1.03 11/01/24 Hemoglobin A1C 6.1 10/06/24 5.7 07/07/24 5.8 04/23/24 ADDITIONAL LABS WBC 3.70 (10/06/24) 3.84 (07/07/24) 9.46 (04/23/24) Hepatitis B Surface Ab 443 (10/06/24) 632 (04/23/24) 1,682.0 (04/20/24) ADDITIONAL COMMENT COMMENTS: 11/19/24 Patient is stable Medications reviewed Physical Exam VSs reviewed HTN noted restarting Carvedilol 12.5 mg PO BID Edema: none Impression 1.Adequacy: KT/V was assessed [...] reviewed. Dietary adjustments made in conjunction with pig machine crane operator. 7.Transplant: The patient is being evaluated for a kidney transplant. 10/25/24 Patient is stable Medications reviewed Physical Exam [...] reviewed. Dietary adjustments made in conjunction with pig machine crane operator. 7.Transplant: The patient is being evaluated for a kidney transplant. 09/20/24 Patient is stable Medications reviewed Physical Exam [...] reviewed. Dietary adjustments made in conjunction with pig machine crane operator. 7.Transplant: The patient is being evaluated for a kidney transplant. 08/23/24 Patient is stable. Medications reviewed Physical [...] reviewed. Dietary adjustments made in conjunction with pig machine crane operator. 7.Transplant: Not a candidate. 07/21/24 Patient is [...] reviewed. Dietary adjustments made in conjunction with pig machine crane operator. 7.Transplant: not a candidate. 3/3/25 Patient is stable, recently cd from [facility] after episode of pneumonia Medications reviewed [...] reviewed. Dietary adjustments made in conjunction with pig machine crane operator. Transplant: Not a candidate. 05/24/24 Patient [...] reviewed. Dietary adjustments made in conjunction with pig machine crane operator. 7.Transplant: Not a candidate. decreasing tacrolimus [...] reviewed. Dietary adjustments made in conjunction with pig machine crane operator. Transplant: The patient will be re-evaluated for a kidney transplant. Signed by: JEANNE BAILEY MD on 12/09/2024 at 06:01:13 PM Transcribed by: JEANNE BAILEY MD on 12/09/2024 at 06:01:13 PM documented in this encounter Plan of Treatment Upcoming Encounters Date Type Department Care Team (Late st Contact Info) Description 12/22/2024 9:30 AM EDT Clinical Support [facility] [address] [place] [address] [place] [address] 03/08/2025 12:30 PM EST Scheduled Only [facility] [address] [place] [address] [place] [address] documented as of this encounter Visit Diagnoses Diagnosis End stage renal disease Dependence on renal dialysis documented in this encounter Care Teams Talent Recruiter Relationship Specialty Start Date End Date Marita Wetzel DO [address] [place] [address] PCP - General Family Medicine 11/14/22 documented as of this encounter
--- OUTSIDE RECORDS SUMMARY | 2024-12-14 15:34 | XMS_ITS | Encounter Summary ---
Author Organization [facility] Address [address] [place] [address] Phone Care Team Providers Care Stone Mason Name Role Phone Marita Wetzel DO Primary Care Provider Unava ilable Encounter Details Date Type Department Care Team (Late st Contact Info) Description 03/18/2023 Documentation Only [facility] [address] [place] [place] [phone] Bernardo Doty MD [address] [place] [address] [place] [address] Social History Tobacco Use Types [...] Support [facility] [address] [place] [place] [address] 03/08/2025 12:30 PM EST Scheduled Only [facility] [address] [place] [place] [address] documented as of this encounter Visit Diagnoses Not on filedocumented in this encounter Care Teams Stone Mason Relationship Specialty Start Date End Date Marita Wetzel DO [address] [place] [address] PCP - General Family Medicine 11/14/22 documented as of this encounter
--- OUTSIDE RECORDS SUMMARY | 2024-12-14 15:34 | XMS_ITS | Encounter Summary ---
Author Organization [employer] Address [address] [place] [address] 7t [place] [address] Care Team Providers Care Coiler Name Role Phone Marita Wetzel DO Primary Care Provider Carmen Becker PharmD Unavailable [phone] Encounter Details Date Type Department Care Team (Late st Contact Info) Description 12/11/2022 Orders Only [facility] [address] [place] [address] Heather Nesbitt, RN [address] [place] [address] Social History Tobacco Use Types Packs/Day Years [...] Description 12/27/2024 10:15 AM EDT Office Visit [facility] MEDICINE [address] [place] [address] Marita Wetzel DO [address] [place] [address] documented as of this encounter Visit Diagnoses Not on filedocumented in this encounter Additional Health Concerns Assessment Noted Time PHQ-9 Depression Total Score: 0 10/09/19 23 9:31 AM EDT documented as of this encounter Care Teams Coiler Relationship Specialty Start Date End Date Marita Wetzel DO [address] [place] [address] PCP - General Family Medicine 04/21/18 Carmen Becker PharmD [address] [place] [address] Pharmacist Internal Medicine 07/21/23 01/21/24 [facility] 05/22/24 documented as of this encounter
--- OUTSIDE RECORDS SUMMARY | 2024-12-14 15:34 | XMS_ITS | Encounter Summary ---
Author Organization [facility] Address [address] [place] [address] Phone Care Team Providers Care Administration Vice President Name Role Phone Marita Wetzel DO Primary Care Provider Unava ilable Encounter Details Date Type Department Care Team (Late st Contact Info) Description 04/18/2023 Documentation Only [facility] [address] [place] [phone] Jerod Adames DO [address] [place] [address] [place] [phone] Social History Tobacco Use Types Packs/Day Years [...] [facility] [address] [place] [address] 03/08/2025 12:30 PM EST Scheduled Only [facility] V[facility] Access Center [address] [place] [phone] documented as of this encounter Visit Diagnoses Not on filedocumented in this encounter Care Teams Administration Vice President Relationship Specialty Start Date End Date Marita Wetzel DO [address] [place] [address] PCP - General Family Medicine 11/14/22 documented as of this encounter
--- OUTSIDE RECORDS SUMMARY | 2024-12-14 15:34 | XMS_ITS | Encounter Summary ---
Author Organization [employer] Address [address] 7t [place] [address] Care Team Providers Care Salon Designer Name Role Phone Marita Wetzel DO Primary Care Provider [phone] Carmen Becker PharmD Unavailable [phone] Encounter Details Date Type Department Care Team ([facility] st Contact Info) Description 04/29/2023 Telephone [facility] [address] [place] [address] Marita Wetzel DO 230 [place], [place] [phone] Social History Tobacco Use Types Packs/Day Years [...] Description 12/27/2024 10:15 AM EDT Office Visit [facility] [address] [place] [address] Marita Wetzel DO [address] [place] [address] documented as of this encounter Visit Diagnoses Not on filedocumented in this encounter Additional Health Concerns Assessment Noted Time PHQ-9 Depression Total Score: 0 10/09/19 23 9:31 AM EDT documented as of this encounter Care Teams Salon Designer Relationship Specialty Start Date End Date Marita Wetzel DO [address] [place] [address] PCP - General Family Medicine 04/21/18 Carmen Bceker PharmD [address] [place] [address] Pharmacist Internal Medicine 07/21/23 01/21/24 [facility] 05/22/24 documented as of this encounter
--- OUTSIDE RECORDS SUMMARY | 2024-12-14 15:34 | XMS_ITS | Encounter Summary ---
Author Organization [facility] Address [address] [place] [address] Phone Care Team Providers Care Pharmacy Customer Care Specialist Name Role Phone Marita Wetzel DO Primary Care Provider Unava ilable Encounter Details Date Type Department Care Team (Late st Contact Info) Description 01/21/2024 Documentation Only [facility] [address] [place] [phone] Pauline Aguayo [address] [place] [phone] Social History Tobacco Use Types Packs/Day Years [...] Support [facility] Vascular Access Center [address] [place] [address] [place] [address] 03/08/2025 12:30 PM EST Scheduled Only [facility] Vascular Access [address] [place] [phone] documented as of this encounter Visit Diagnoses Not on filedocumented in this encounter Care Teams Pharmacy Customer Care Specialist Relationship Specialty Start Date End Date Marita Wetzel DO [address] [place] [address] PCP - General Family Medicine 11/14/22 documented as of this encounter
--- OUTSIDE RECORDS SUMMARY | 2024-12-14 15:34 | XMS_ITS | Encounter Summary ---
Author Organization [facility] [place], Address [address] [facility] [place] [address] Phone Care Team Providers Care Turntable Operator Name Role Phone Marita Wetzel DO Primary Care Provider Unava ilable Reason for Visit * Reason Comments Med Refill Encounter Details Date Type Department Care Team (Late Contact Info) Description 06/30/2024 Refill [facility] [address] [place] [phone] Srinivas Agrawal MD [address] [facility] [place] [phone] Social History Tobacco Use Types Packs/Day Years [...] Support [facility] V[facility] Access Center [address] [phone] 03/08/2025 12:30 PM EST Scheduled Only [facility] [address] [phone] documented as of this encounter Procedures Procedure Name Priority Date/Time Associated Diagnosis Comments HEMATOLOGY Routine 06/30/2024 documented in this encounter Results * (ABNORMAL) HEMATOLOGY (06/30/2024) Hemoglobin 6.3(L) 12.0 - 16.0 g/dL [facility] Hemoglobin x 3 18.9(L) 36.0 - 48.0 % [facility] 06/30/2024 07/01/2024 10: 49 AM EDT Narrative [facility] - 07/01/2024 Unless otherwise specified, test(s) performed at: [facility], [address] [place] [address] COMMUNITY LIFE DIRECTOR: Dwayne Fuentes M.D. For any questions, please call customer service at FREQUENCY:OTHER Resulting Agency Comment Specimen source: Blood Srinivas Agrawal MD LAB BLOOD ORDERABLES Final Result [facility] See order comments or contact performing lab Unknown, [place] documented in this encounter Visit Diagnoses Not on filedocumented in this encounter Care Teams Turntable Operator Relationship Specialty Start Date End Date Marita Wetzel DO [address] [place] [address] PCP - General Family Medicine 11/14/22 documented as of this encounter
--- OUTSIDE RECORDS SUMMARY | 2024-12-14 15:34 | XMS_ITS | Encounter Summary ---
Author Organization [employer] Address [address] [facility] 7t [place] [address] Care Team Providers Care Lumber Sales Supervisor Name Role Phone Damari Marita Primary Care Provider [phone] Reason for Visit * Reason Comments Med Change Request Encounter Details Date Type Department Care Team ([facility] st Contact Info) Description 12/08/2024 Refill [facility]ALK[facility]ENTER [address] [place] [address] Cherry Landa MD [address] [place] [address] Type 2 diabetes mellitus with stage 3b chronic kidney disease, with long-term current use of insulin ([facility]) Social History Tobacco Use Types Packs/Day Years Used Date Smoking Tobacco: Never Passive Smoke Exposure: Never Smokeless Tobacco: Never Alcohol Use Standard Drinks/Week Comments Never 0 (1 standard drink = 0.6 oz pur e alcohol) Depression Answer Date Recorded Patient Health Questionnaire-9 Score 0 10/08/2022 Housing Stability Answer Date Recorded What is your housing situation today? I have naye sing 05/20/[address] you li [...] Description 12/27/2024 10:15 AM EDT Office Visit [facility] MEDICINE [address] [place] [address] [id number] Marita Wetzel DO [address] [place], [place] [phone] documented as of this encounter Goals Goal [...] with long-term current use of insulin ([facility]) documented in this encounter Additional Health Concerns Assessment Noted Time PHQ-9 Depression Total Score: 0 10/09/19 23 9:31 AM EDT documented as of this encounter Care Teams Lumber Sales Supervisor Relationship Specialty Start Date End Date Marita Wetzel DO [address] [place] [address] [phone] PCP - General Family Medicine 04/21/18 [facility] 05/22/24 documented as of this encounter
--- OUTSIDE RECORDS SUMMARY | 2024-12-14 15:35 | XMS_ITS | Encounter Summary ---
Author Organization [facility] [place], Address [address] [place] [address] Phone Care Team Providers Care Fiberglass Boat Finisher Name Role Phone Marita Wetzel DO Primary Care Provider Unava ilable Reason for Visit * Reason Comments Med Refill Encounter Details Date Type Department Care Team (Late Contact Info) Description 01/04/2021 Refill [facility] [address] [place] [phone] Bernardo Doty MD [address] [facility] [place] [phone] Social History Tobacco Use Types Packs/Day Years [...] Of [facility] Vascular Access Center [address] [place] [phone] 03/08/2025 12:30 PM EST Scheduled Only [facility] [address] [place] [phone] documented as of this encounter Visit Diagnoses Not on filedocumented in this encounter Care Teams Fiberglass Boat Finisher Relationship Specialty Start Date End Date Marita Wetzel DO [address] [place] [address] PCP - General Family Medicine 11/14/22 documented as of this encounter
--- OUTSIDE RECORDS SUMMARY | 2024-12-14 15:35 | XMS_ITS | Encounter Summary ---
Author Organization [facility] Address [address] [place] [address] Phone Care Team Providers Care Security Control Assessor Name Role Phone Marita Wetzel DO Primary Care Provider Unava ilable Encounter Details Date Type Department Care Team (Late st Contact Info) Description 04/17/2024 Documentation Only [facility] [address] [place] [phone] [facility], [place], [place] [address] [place] [phone] Social History Tobacco Use Types Packs/Day Years [...] Support [facility] V[facility] Access Center [address] [place] [phone] 03/08/2025 12:30 PM EST Scheduled Only [facility] Vascular Access [place] [address] [phone] documented as of this encounter Visit Diagnoses Not on filedocumented in this encounter Care Teams Security Control Assessor Relationship Specialty Start Date End Date Marita Wetzel DO [address] [place] [address] PCP - General Family Medicine 11/14/22 documented as of this encounter
--- OUTSIDE RECORDS SUMMARY | 2024-12-14 15:35 | XMS_ITS | Encounter Summary ---
Author Organization [facility] [place], Address [address] [place] [address] Phone Care Team Providers Care Fitting Room Supervisor Name Role Phone Marita Wetzel DO Primary Care Provider Unava ilable Encounter Details Date Type Department Care Team (Late Contact Info) Description 12/13/2024 Orders Only [facility] [place] [address] [place] [phone] Bernardo Doty MD [address] [place] [address] [place] [phone] Social History Tobacco Use Types Packs/Day Years [...] [facility] [address] [place] [address] 03/08/2025 12:30 PM EST Scheduled Only [facility] Vascular Access Center [address] [place] [address] [place] [phone] documented as of this encounter Procedures Procedure Name Priority Date/Time Associated Diagnosis Comments CHEMISTRY Routine 12/13/2024 documented in this encounter Results * (ABNORMAL) [facility] (12/13/2024) BUN 68(H) 6 - 19 mg/dL [facility] 12/13/2024 12/14/2024 9:0 7 AM EDT Narrative [facility] - 12/14/2024 Unless otherwise specified, test(s) performed at: [facility], [address] [place], [place] [id number] MANAGER OF CASE MANAGEMENT: Dwayne Fuentes M.D. For any questions, please call customer service at FREQUENCY:OTHER Resulting Agency Comment Specimen source: Serum us Bernardo Doty MD LAB BLOOD ORDERABLES Final Resul t [facility] See order comments or contact performing lab Unknown, [place] documented in this encounter Visit Diagnoses Not on filedocumented in this encounter Care Teams Fitting Room Supervisor Relationship Specialty Start Date End Date Marita Wetzel DO [address] [place] [address] PCP - General Family Medicine 11/14/22 documented as of this encounter
--- OUTSIDE RECORDS SUMMARY | 2024-12-14 15:35 | XMS_ITS | Encounter Summary ---
Author Organization [facility] Address [address] [place] [address] Phone Care Team Providers Care Director Of Strategic Partnerships Name Role Phone Marita Wetzel DO Primary Care Provider Unava ilable Encounter Details Date Type Department Care Team (Late st Contact Info) Description 10/24/2023 Documentation Only [facility] [address] [place] [phone] [facility], [place], [place] [address] [place] [phone] Social History Tobacco Use Types Packs/Day Years [...] Of [facility] Vascular Access Center [address] [place] [phone] 03/08/2025 12:30 PM EST Scheduled Only [facility] [address] [place] [phone] documented as of this encounter Visit Diagnoses Not on filedocumented in this encounter Care Teams Director Of Strategic Partnerships Relationship Specialty Start Date End Date Marita Wetzel DO [address] [place] [address] PCP - General Family Medicine 11/14/22 documented as of this encounter
--- OUTSIDE RECORDS SUMMARY | 2024-12-14 15:35 | XMS_ITS | Encounter Summary ---
Author Organization [facility] [place], Address [address] [place] [address] Phone Care Team Providers Care Chemical Inspector Name Role Phone Marita Wetzel DO Primary Care Provider Unava ilable Reason for Visit * Reason Comments Med Refill Encounter Details Date Type Department Care Team (Late Contact Info) Description 05/08/2021 Refill [facility] [place] [address] [place] [phone] Bernardo Doty MD [address] [facility] [place] [phone] Social History Tobacco Use Types Packs/Day Years [...] Support [facility] Vascular Access Center [address] [place] [phone] 03/08/2025 12:30 PM EST Scheduled Only [facility] Access [facility] [address] [place] [phone] documented as of this encounter Visit Diagnoses Not on filedocumented in this encounter Care Teams Chemical Inspector Relationship Specialty Start Date End Date Marita Wetzel DO [address] [place] [address] PCP - General Family Medicine 11/14/22 documented as of this encounter
--- OUTSIDE RECORDS SUMMARY | 2024-12-14 15:35 | XMS_ITS | Encounter Summary ---
Author Organization [facility] Address [place] [address] [place] [address] Phone Care Team Providers Care Make Up Arranger Name Role Phone Fouzia Wetzelfer Primary Care Provider Unava ilable Encounter Details Date Type Department Care Team (Late st Contact Info) Description 10/03/2023 Documentation Only [facility] Of [address] [place] [phone] Srinivas Agrawal MD [address] [place] [address] [place] [address] Social History Tobacco Use Types [...] [facility] Vascular Access [address] [place] [address] 03/08/2025 12:30 PM EST Scheduled Only [facility] V[facility] Access [address] [place] [phone] documented as of this encounter Visit Diagnoses Not on filedocumented in this encounter Care Teams Make Up Arranger Relationship Specialty Start Date End Date Marita Wetzel DO [address] [place] [address] PCP - General Family Medicine 11/14/22 documented as of this encounter
--- OUTSIDE RECORDS SUMMARY | 2024-12-14 15:35 | XMS_ITS | Encounter Summary ---
Author Organization [facility] [place], Address PO [facility] [place] [address] Phone Care Team Providers Care Brick Extruder Operator Name Role Phone Marita Wetzel DO Primary Care Provider Unava ilable Reason for Visit * Reason Comments Med Refill Encounter Details Date Type Department Care Team (Late Contact Info) Description 06/18/2024 Refill [facility] [place] [address] [place] [phone] Srinivas Agrawal MD [address] [facility] [place] [phone] Social History Tobacco Use Types Packs/Day Years [...] [facility] Access Center [address] [place] [phone] 03/08/2025 12:30 PM EST Scheduled Only [facility] V[facility] Access Center [address] [place] [phone] documented as of this encounter Procedures Procedure [...] Ordering Provider LAB BLOOD ORDERABLES Final Result [facility] Contact Performing lab Unknown, [place] [...] 06/22/2024 Unless otherwise specified, test(s) performed at: [facility], [address] [place] [address] ROVING HAULER: Dwayne Fuentes M.D. For any questions, please call customer service at FREQUENCY:MONTHLY Resulting Agency Comment Specimen source: Plasma Srinivas Agrawal MD LAB BLOOD ORDERABLES Final Result [facility] See order comments or contact performing lab Unknown, [place] * IMMUNO CHEMISTRY (06/18/2024) Pathologist [facility] Hep B Surface Ag Negative Negative [facility] 06/18/2024 06/19/2024 11: 21 AM EST Narrative Resulting Agency Comment Specimen source: Serum Srinivas Agrawal MD LAB BLOOD ORDERABLES Final Result Performing Organization Address City/[facility]/ZIP Co de Phone Number [employer] [facility] See order comments or contact performing [...] 06/19/2024 Unless otherwise specified, test(s) performed at: [facility], [address] [place], [place] [id number] ROVING HAULER: Dwayne Fuentes M.D. For any questions, please call customer service at FREQUENCY:MONTHLY Resulting Agency Comment Specimen source: Serum Srinivas Agrawal MD LAB BLOOD ORDERABLES Edite d Result - Final Performing Organization Address [facility] Co de Phone Number [facility] See order comments or contact performing lab Unknown, [place] * (ABNORMAL) HEMATOLOGY (06/18/2024) Hemoglobin 7.9(L) 12.0 - 16.0 g/dL [facility] Hemoglobin x 3 23.7(L) 36.0 - 48.0 % [facility] 06/18/2024 06/19/2024 12: 24 PM EST Narrative [facility] - 06/19/2024 Unless otherwise specified, test(s) performed at: [facility], [address] [place] [address] ROVING HAULER: Dwayne Fuentes M.D. For any questions, please call customer service at FREQUENCY:MONTHLY Resulting Agency Comment Specimen source: Blood Srinivas Agrawal MD LAB BLOOD ORDERABLES Final Result Performing Organization Address City/[facility]/ZIP Co de Phone Number [facility] See order comments or contact performing lab Unknown, [place] * (ABNORMAL) [facility] (06/18/2024) PTH 145(H) 16 - 80 pg/mL [facility] 06/18/2024 06/19/2024 11: 40 AM EST Narrative [facility] - 06/19/2024 Unless otherwise specified, test(s) performed at: [facility], [address] [place] [address] ROVING HAULER: Dwayne Fuentes M.D. For any questions, please call customer service at FREQUENCY:MONTHLY Resulting Agency Comment Specimen source: Plasma us Srinivas Agrawal MD LAB BLOOD ORDERABLES Final Result [facility] See order comments or contact performing lab Unknown, [place] documented in this encounter Visit Diagnoses Not on filedocumented in this encounter Care Teams Brick Extruder Operator Relationship Specialty Start Date End Date Marita Wetzel DO [address] [place] [address] PCP - General Family Medicine 11/14/22 documented as of this encounter
--- OUTSIDE RECORDS SUMMARY | 2024-12-14 15:35 | XMS_ITS | Encounter Summary ---
Author Organization [facility] Address [address] [place] [address] Phone Care Team Providers Care Curbing Stonecutter Name Role Phone Marita Wetzel DO Primary Care Provider Unava ilable Encounter Details Date Type Department Care Team (Late st Contact Info) Description 06/14/2022 Documentation Only [facility] [address] [place] [phone] Candace Adam PA [address] [place] [address] [place] [phone] Social History Tobacco Use Types Packs/Day Years [...] Support [facility] Vascular Access [address] [place] [phone] 03/08/2025 12:30 PM EST Scheduled Only [facility] Access [address] [place] [phone] documented as of this encounter Visit Diagnoses Not on filedocumented in this encounter Care Teams Curbing Stonecutter Relationship Specialty Start Date End Date Marita Wetzel DO [address] [place] [address] PCP - General Family Medicine 11/14/22 documented as of this encounter
--- OUTSIDE RECORDS SUMMARY | 2024-12-14 15:35 | XMS_ITS | Encounter Summary ---
Author Organization [facility] Address [address] [place] [address] Phone Care Team Providers Care Wine Merchant Name Role Phone Marita Wetzel DO Primary Care Provider Unava ilable Encounter Details Date Type Department Care Team (Late st Contact Info) Description 10/06/2023 Documentation Only [facility] [address] [place] [phone] Hendrix, [place], [place] [address] [place] [phone] Social History Tobacco Use Types Packs/Day Years [...] [facility] Center [address] [place] [phone] 03/08/2025 12:30 PM EST Scheduled Only [facility] Access Center [address] [place] [phone] documented as of this encounter Visit Diagnoses Not on filedocumented in this encounter Care Teams Wine Merchant Relationship Specialty Start Date End Date Marita Wetzel DO [address] [place] [address] PCP - General Family Medicine 11/14/22 documented as of this encounter
--- OUTSIDE RECORDS SUMMARY | 2024-12-14 15:35 | XMS_ITS | Encounter Summary ---
Author Organization [facility] [place], Address [address] [place] [address] Phone Care Team Providers Care Acetylene Torch Solderer Name Role Phone Marita Wetzel DO Primary Care Provider Unava ilable Encounter Details Date Type Department Care Team (Late st Contact Info) Description 10/17/2023 Documentation Only [facility] [address] [place] [phone] [place], [place] [address] [place] [phone] Social History Tobacco Use Types Packs/Day Years [...] [facility] Transplant [facility] Of [facility] - Vascular Access Center [address] [place] [phone] 03/08/2025 12:30 PM EST Scheduled Only [facility] V[facility] Access Center [address] [place] [phone] documented as of this encounter Visit Diagnoses Not on filedocumented in this encounter Care Teams Acetylene Torch Solderer Relationship Specialty Start Date End Date Marita Wetzel DO [address] [place] [address] PCP - General Family Medicine 11/14/22 documented as of this encounter
--- OUTSIDE RECORDS SUMMARY | 2024-12-14 15:35 | XMS_ITS | Encounter Summary ---
Author Organization [facility] Address [address] [place] [address] Phone Care Team Providers Care Slide Fastener Repairer Name Role Phone Marita Wetzel DO Primary Care Provider Unava ilable Encounter Details Date Type Department Care Team (Late st Contact Info) Description 08/11/2023 Documentation Only [facility] Of [address] [place] [phone] Hendrix, [place], [place] [address] [place] [phone] Social History Tobacco Use Types Packs/Day Years [...] Support [facility] Vascular Access Center [address] [place] [place] [phone] 03/08/2025 12:30 PM EST Scheduled Only [facility] V[facility] Access Center [address] [place] [place] [phone] documented as of this encounter Visit Diagnoses Not on filedocumented in this encounter Care Teams Slide Fastener Repairer Relationship Specialty Start Date End Date Marita Wetzel DO [address] [place] [address] PCP - General Family Medicine 11/14/22 documented as of this encounter
--- OUTSIDE RECORDS SUMMARY | 2024-12-14 15:35 | XMS_ITS | Encounter Summary ---
Author Organization [facility] Address [address] [place] [address] Phone Care Team Providers Care Parimutuel Ticket Seller Name Role Phone Marita Wetzel DO Primary Care Provider Unava ilable Encounter Details Date Type Department Care Team (Late st Contact Info) Description 06/25/2022 Documentation Only [facility] [address] [place] [phone] Pauline Aguayo [address] [place] [phone] Social History Tobacco Use Types Packs/Day Years [...] [facility] Vascular Access Center [address] [place] [phone] 03/08/2025 12:30 PM EST Scheduled Only [facility] V[facility] Access Center [address] [place] [phone] documented as of this encounter Visit Diagnoses Not on filedocumented in this encounter Care Teams Parimutuel Ticket Seller Relationship Specialty Start Date End Date Marita Wetzel DO [address] [place] [address] PCP - General Family Medicine 11/14/22 documented as of this encounter
--- OUTSIDE RECORDS SUMMARY | 2024-12-14 15:35 | XMS_ITS | Clinical Summary ---
Author Organization [employer] Address [address] [place] [address] [address] [place] [address] Care Team Providers Care Infrastructure Analyst Name Role Phone Damari Marita Primary Care Provider [phone] Allergies Active Allergy Reactions Criticality Noted Date Comments Codeine Hives High 11/12/2011 Other reaction(s): FAINTING/HIVES Oxycodone 07/30/2022 Oxycodone-Acetaminophen Hives High 10/05/2012 Other reaction(s): Nausea / Vomiting Medications * This document contains information received from the source organization and may not represent a complete record from that organization. Continuous Blood Gluc Search And Rescue Officer ([employer] Seema 2 [place]) device 05/07/19 23 Active dorzolamide-ti molol (Cosopt) [...] Blood Gluc Sensor (FreeStyle Seema 2 Sensor) [facility] [place] as directed Active mycophenolate (Myfortic) 360 [...] 4 times daily. 10/10/19 24 Active Procrit 38594 UNIT/ML injection 12/09/19 24 Active insulin lispro (HumaLOG KWIKPEN) 100 UNIT/ML injectionIndic ations:Type 2 diabetes mellitus with stage 3b chronic kidney disease, with long-term current use of insulin ([facility]) Inject subQ 3 times daily with meals [...] MORNING AND IN THE EVENING WITH MEALS 180 tablet 09/09/19 25 Active Lantus SoloStar 100 UNIT/ML penIndications :Type 2 diabetes mellitus with stage 3b chronic kidney disease, with long-term current use of insulin (CMS/HCC) INJECT 8 UNITS UNDER THE SKIN IN THE MORNING. 15 mL 3 12/09/19 25 Active Continuous Glucose Search And Rescue Officer (FreeStyle Seema 3 [place]) deviceIndicati ons:Type 2 diabetes mellitus with stage 3b chronic kidney disease, with long-term current use of insulin (CMS/HCC) 1 each Once per day. Use as directed for CGM 1 each 12/11/19 25 Active Continuous Glucose Sensor (FreeStyle Seema 3 Plus Sensor) miscIndication s:Type 2 diabetes mellitus with stage 3b chronic kidney disease, with long-term current use of insulin (CMS/HCC) 1 each every 15 days. Apply 1 every 15 days as directed for CGM 2 each 12/11/19 25 Active glucose blood (FreeStyle Precision Nikko Test) test stripIndicatio ns:Type 2 diabetes mellitus with stage 3b chronic kidney disease, with long-term current use of insulin (CMS/HCC) Use to test blood sugar 3 times daily in case of CGM failure or extremes of BG 100 each 12/11/19 25 026 Active insulin glargine (Lantus SoloStar) 100 UNIT/ML penIndications :Type 2 diabetes mellitus with stage 3b chronic kidney disease, with long-term current use of insulin (CMS/HCC) Inject 28 Units under the skin in the morning. 01/22/20 24 025 Discontinued(Re order (will not trigger notification to Pharmacy)) insulin glargine (Lantus SoloStar) 100 UNIT/ML penIndications :Type 2 diabetes mellitus with stage 3b chronic kidney disease, with long-term current use of insulin (CMS/HCC) Inject 8 Units under the skin in the morning. 3 mL 12/08/19 25 025 Discontinued Continuous Glucose Search And Rescue Officer (FreeStyle Seema 3 [place]) deviceIndicati ons:Type 2 diabetes mellitus with stage 3b chronic kidney disease, with long-term current use of insulin (CMS/HCC) 1 each Once per day. Use as directed for CGM 1 each 12/08/19 25 025 Discontinued(Re order (will not trigger notification to Pharmacy)) Continuous Glucose Sensor (FreeStyle Seema 3 Plus Sensor) miscIndication s:Type 2 diabetes mellitus with stage 3b chronic kidney disease, with long-term current use of insulin ([facility]) 1 each every 15 days. Apply 1 every 15 days as directed for CGM 2 each 12/08/19 025 Discontinued(Re order (will not trigger notification to Pharmacy)) glucose blood (FreeStyle Precision Nikko Test) test stripIndicatio ns:Type 2 diabetes mellitus with stage 3b chronic kidney disease, with long-term current use of insulin ([facility]) Use to test blood sugar 3 times daily in case of CGM failure or extremes of BG 100 each 12/08/19 025 Discontinued(Re order (will not trigger notification to Pharmacy)) Active Problems Problem Noted Date Diagnosed Date Pancreatic lesion 12/07/2024 Assessment & Plan (12/07/2024 2:11 PM EDT): I refer her to GI STAT Abdominal ascites 12/07/2024 Assessment & Plan (12/07/2024 2:10 PM EDT): I refer her to GI stat Abdominal enlargement 11/02/2024 Assessment & Plan (11/02/2024 12:03 PM EDT): I decided to order a CT of the abdomen and pelvis patient to be scheduled as soon as possible she will be contacted with results ED precautions were reviewed closely with her she understands if she has pain discomfort, fever, nausea or other symptoms she will have to go to the emergency room for further evaluation Pain of upper abdomen 11/02/2024 Chronic gastroesophageal reflux disease 07/23/19 24 Immunosuppression [...] DM and HTN Type 2 diabetes mellitus wit h hyperglycemia, with long-term current use of insulin 07/30/2022 Assessment & Plan (12/07/2024 2:10 PM EDT): Extensive counseling done today I advised her to use Lantus 8 units in the mornings only and do not correct her glucose with Lantus, I prescribed for her continuous glucose monitor and I refer her to pharmacy CDTM Assessment & Plan (10/31/2023 11:24 AM EDT): [...] Overview (07/10/2022): Hypertensive disorder Assessment & Plan (12/07/2024 2:09 PM EDT): Blood pressure is 166/70, patient tells me she forgot to take her blood pressure medication today, patient is also on hemodialysis blood pressure is labile advised to continue to take the medication and follow-up with PCP Assessment & Plan (07/31/2023 2:07 PM EDT): [...] Encounters Date Type Department Care Team Description 12/09/2024 Refill [facility] [address] [place] [address] Faye Batista, RN Type 2 diabetes mellitus with stage 3b chronic kidney disease, with long-term current use of insulin ([facility]) 12/08/2024 Orders Only [facility] [address] [place] [address] Cherry Landa MD 12/08/2024 Refill [facility] [address] [place] [phone] Cherry Landa MD Type 2 diabetes mellitus with stage 3b chronic kidney disease, with long-term current use of insulin ([facility]/HCC) 12/07/2024 11:20 AM EDT [facility] [address] [address] Cherry Landa MD Essential hypertension (Primary Dx); Type 2 diabetes mellitus with hyperglycemia, with long-term current use of insulin ([facility]/HCC); Type 2 diabetes mellitus with stage 3b chronic kidney disease, with long-term current use of insulin ([facility]/HCC); Pancreatic lesion; Other ascites 12/07/2024 Refill [facility] [address] [place] [phone] Cherry Landa MD Type 2 diabetes mellitus with stage 3b chronic kidney disease, with long-term current use of insulin ([facility]/HCC) 12/07/2024 Travel 12/06/[address] [address] Marita Wetzel DO telephone call 11/27/2024 Orders Only [facility] External Provider, [facility] 11/05/[address] [address] Marita Wetzel DO Results; Referral 11/02/2024 11:00 AM EDT Office Visit [facility] [address] [address] Cherry Landa MD Abdominal enlargement; Pain of upper abdomen 11/02/2024 Travel 10/25/[address] [address] Marita Wetzel DO call back needed 10/14/[address] [address] Marita Wetzel DO ER Follow-up from Last 3 Months Immunizations Immunization [...] Sign Reading Time Taken Comments Blood Pressure 166/70 12/07/2024 11:10 AM EDT Pulse 62 12/07/2024 11:10 AM EDT Temperature 36.4 C (97.5 F) 12/07/2024 11:10 AM EDT Respiratory Rate 17 12/07/2024 11:10 AM EDT Oxygen Saturation 97% 12/07/2024 11:10 AM EDT Inhaled Oxygen Concentration - - Weight 72.1 kg (159 lb) 11/02/2024 11:07 AM EDT Height 167.6 cm (5' 6 ) 12/09/2023 9:39 AM EDT Body Mass Index 25.66 12/09/2023 9:39 AM EDT Plan of Treatment Upcoming Encounters Date Type Department Care Team (Late st Contact Info) Description 12/27/2024 10:15 AM EDT Office Visit [facility] [address], [place] [phone] Marita Wetzel DO [address] [place], [place] [phone] Health Maintenance Due Date Last Done Comments CT Colonography 1960 Colonoscopy 1960 Colorectal Cancer Screening 1960 FIT DNA/Cologuard 1960 FIT 1960 FOBT 1960 HIV Screening 1960 Sigmoidoscopy 1960 Disability Screening 1960 Diabetes: Foot Exam 1970 Eye Exam 1970 Alcohol/Substance Use Screening 1972 Hepatitis C Screening 1978 RSV Patients and Patients Aged 60 years or older (1 - Risk 60-74 years 1-dose series) 2020 Zoster Vaccines (1 of 2) 11/14/2021 Cervical Cancer Screening 08/13/2023 HPV/Cotest 08/13/2023 08/12/2018 Pap Smear 08/13/2023 08/12/2018 Depression Screening 10/09/2023 10/08/2022, 10/09/19 COVID-19 Vaccine ( - 2023- season) 2023 02/01/2022, 06/22/2020, 05/25/2020 SDOH Screening 07/14/2024 07/15/2023 Lipid Panel 10/05/2024 10/06/2023 Tobacco Screening 12/08/2024 12/09/2023 Influenza Vaccine (#1) 2024 , 02/26/2023, 01/23/2022, Additional history exists Diabetes: Hemoglobin A1C 06/09/2025 025, 12/09/2023, 07/23/2023, Additional history exists Mammogram 07/16/2025 07/17/2023, 06/20, 07/11/2022, Additional history exists Pneumococcal Vaccine: 50+ Years (4 of 4 - PCV20 or PCV21) 05/03/2026 05/03/2021, 01/05/2020, 08/13/2010 DTaP/Tdap/Td Vaccines (5 - Td or Tdap) 11/27/2034 11/27/2024, 01/18/2022, 01/18/2022, Additional history exists Hepatitis B Vaccines Completed 10/02/2021, 10/01/2021, 10/01/2021, Additional history exists HIB Vaccines Aged Out [...] 6.4( 11:38 AM EDT) No Carmen Becker, Lg Record your blood sugar as directed Result Component No Carmen Becker PharmD Note: Use CGM, ensuring sensor is scanned at least once every 8 hours to capture 24H data. Check BG manually, as directed. Procedures Procedure Name Priority Date/Time Associated Diagnosis Comments POCT GLUCOSE Routine 12/07/2024 11:38 AM EDT Type 2 diabetes mellitus with stage 3b chronic kidney disease, with long-term current use of insulin ([facility]) POCT GLYCATED HEMOGLOBIN, TOTAL Routine 12/07/2024 11:38 AM EDT Type 2 diabetes mellitus with stage 3b chronic kidney disease, with long-term current use of insulin ([facility]) CT ABDOMEN PELVIS WO CONTRAST Routine 11/27/2024 2:54 PM EDT COMPREHENSIVE METABOLIC PANEL Routine 11/27/2024 12:28 PM EDT CBC WITH AUTO DIFFERENTIAL Routine 11/27/2024 12:28 PM EDT XR ELBOW 3+ VIEWS LEFT Routine 10:15 AM EDT XR HIP LEFT WITH PELVIS 1 VIEW Routine 11/27/2024 10:00 AM EDT LIPID PANEL, STANDARD Routine 10/06/2023 BI MAMMOGRAM SCREENING TOMOSYNTHESIS BILATERAL Routine 07/17/2023 10:45 AM EDT HM PAP/HPV Routine 08/12/2018 from Last 3 Months or Most Recently Relevant to Health Maintenance Results * (ABNORMAL) POCT A1c (12/07/2024 11:38 AM EDT) Hemoglobin A1C 6.4(A) 4.0 - 5.7 % Blood 12/07/2024 11:3 8 AM EDT Cherry Kc MD POINT OF CARE TEST EN TER/EDIT ORDERABLES Final Result * POCT glucose manually resulted (12/07/2024 11:38 AM EDT) Glucose Blood, POC 135 60 - 200 mg/dL Blood Capillary blood specimen / Unknown 12/07/2024 11:38 AM EDT us Cherry Kc MD POINT OF CARE TEST EN TER/EDIT ORDERABLES Final Result * CT Abdomen Pelvis w/o Contrast (11/27/2024 2:54 PM EDT) Anatomical Region Laterality Modality Body, Pelvis, Abdomen Computed T omography 11/27/2024 2:54 PM EDT Narrative 11/27/2024 2:55 PM EDT [address] [address] [address] Scan Report Signed Patient: Alix Sharp MR#: [id number] 43 : 1960 Acct:[id number] Age/Sex: 64 / F ADM Date: 11/27/24 Loc: HO.ED Attending Dr: Ordering Physician: Shavonne Lima NP Date of Service: 11/27/24 Procedure(s): CT abdomen pelvis wo IV con Accession Number(s): [id number] cc: DamariMarita Scottie MARROQUIN; Shavonne Lima NP Report Number: [id number]: Total DLP = 644.00 mGy-cm CLINICAL HISTORY: lower abd distention, weight gain CT abdomen and pelvis without contrast Comparison: None available Findings: Trace bilateral pleural effusions, greater on the right. Right pleural thickening with suspected round atelectasis. Subsegmental atelectasis versus linear scarring in the lung bases. Cardiomegaly. Cholelithiasis. The gallbladder wall is not well evaluated. Underdistended bladder. Hepatomegaly, measuring 21.4 cm in craniocaudal dimension. There is a cystic lesion in region of the head of the pancreas measuring 1.7 x 2.5 x 2.3 cm. Questionable upstream pancreatic ductal dilatation and parenchymal atrophy. Upper limit of normal sized spleen, measuring 11.9 cm in anterior-posterior dimension. Atrophic kidneys with cysts and extensive vascular calcifications in the renal pelvises. Question lobular contour of the uterus which may indicate fibroids. The other solid organs are unremarkable. No bowel dilation. No definitive bowel wall thickening. There are anastomotic sutures in the right lower quadrant. The appendix is not visualized and suspected to be surgically absent. No aneurysm. Marked, severe calcified atherosclerotic disease. Multiple vascular stents. Lymph nodes measure up to 1.1 cm in short axis. Moderate ascites. Severe anasarca. Anterior abdominal wall hernia repair. No acute osseous abnormality. Status post pinning of the left femoral neck. Intact hardware. Impression: Moderate ascites with severe anasarca. Marked, severe calcified atherosclerotic disease. Trace bilateral pleural effusions. Right pleural thickening with suspected round atelectasis. 2.5 cm cystic lesion in the head of the pancreas with question of upstream pancreatic ductal dilatation and parenchymal atrophy. This could be the sequela of chronic pancreatitis. Evaluate further with nonemergent pancreatic mass protocol CT or MR to exclude malignancy. This document has been electronically signed by: Kaitlynn Marcus MD on 11/27/2024 14:54:28 Dictated By: Kaitlynn Guillaume MD Signed By: <Electronically signed by Kaitlynn Guillaume MD in OV> 11/27/24 1455 DD/ 1454 TD/TT: 11/27/24 145 Billing And Quality Technician: Procedure Note Perotclifinterpreter, Image - 11/27/[address] [address] [address] Scan Report Signed Patient: Alix Sharp BMR#: [id number] 43 : 1960cct:[id number] Age/Sex: 64 / FADM Date: 11/27/24 Loc: HO.ED Attending Dr: Ordering Physician: Shavonne Lima NP Date of Service: 11/27/24 Procedure(s): CT abdomen pelvis wo IV con Accession Number(s): [id number] cc: Marita Wetzel DO; Shavonne Lima NP Report Number: [id number]: Total DLP = 644.00 mGy-cm CLINICAL HISTORY: lower abd distention, weight gain CT abdomen and pelvis without contrast Comparison: None available Findings: Trace bilateral pleural effusions, greater on the right. Right pleural thickening with suspected round atelectasis. Subsegmental atelectasis versus linear scarring in the lung bases. Cardiomegaly. Cholelithiasis. The gallbladder wall is not well evaluated. Underdistended bladder. Hepatomegaly, measuring 21.4 cm in craniocaudal dimension. There is a cystic lesion in region of the head of the pancreas measuring 1.7 x 2.5 x 2.3 cm. Questionable upstream pancreatic ductal dilatation and parenchymal atrophy. Upper limit of normal sized spleen, measuring 11.9 cm in anterior-posterior dimension. Atrophic kidneys with cysts and extensive vascular calcifications in the renal pelvises. Question lobular contour of the uterus which may indicate fibroids. The other solid organs are unremarkable. No bowel dilation. No definitive bowel wall thickening. There are anastomotic sutures in the right lower quadrant. The appendix is not visualized and suspected to be surgically absent. No aneurysm. Marked, severe calcified atherosclerotic disease. Multiple vascular stents. Lymph nodes measure up to 1.1 cm in short axis. Moderate ascites. Severe anasarca. Anterior abdominal wall hernia repair. No acute osseous abnormality. Status post pinning of the left femoral neck. Intact hardware. Impression: Moderate ascites with severe anasarca. Marked, severe calcified atherosclerotic disease. Trace bilateral pleural effusions. Right pleural thickening with suspected round atelectasis. 2.5 cm cystic lesion in the head of the pancreas with question of upstream pancreatic ductal dilatation and parenchymal atrophy. This could be the sequela of chronic pancreatitis. Evaluate further with nonemergent pancreatic mass protocol CT or MR to exclude malignancy. This document has been electronically signed by: Kaitlynn Marcus MD on 11/27/2024 14:54:28 Dictated By: Kaitlynn Guillaume MD Signed By: <Electronically signed by Kaitlynn Guillaume MD in OV> 11/27/24 1455 DD/ 1454 TD/TT: 11/27/24 145 Billing And Quality Technician: [facility] External Provider IMG CT PROCEDURES Final Result * (ABNORMAL) CBC auto differential (11/27/2024 12:28 PM EDT) White Blood Count 5.8 4.8 - 10.8 X10*3/uL [facility] Red Blood Count 3.88(L) 4.20 - 5.50 X10*6/uL [facility] Hemoglobin 10.7(L) 12.0 - 16.0 g/dl [facility] Hematocrit 35.1(L) 37.0 - 47.0 % [facility] Mean Corpuscular Volume 90.5 80.0 - 98.0 fL [facility] Mean Corpuscular Hemoglobin 27.6 27.0 - 33.0 pg [facility] Mean Corpuscular HGB Conc 30.5(L) 31.0 - 35.0 g/dl [facility] Red Cell Distribution Width 18.1(H) 11.0 - 16.0 % [facility] Platelet Count 122(L) 160 - 400 X10*3/uL [facility] Mean Platelet Volume 9.4 9.4 - 12.3 fL [facility] Neutrophils Percent Auto 83.7(H) 45 - 73 % [facility] Imm Gran Pct Auto 0.3 0.0 - 0.4 % [facility] Lymphocytes Percent Auto 8.6(L) 20 - 40 % [facility] Monocytes Percent Auto 6.7 2 - 11 % [facility] Eosinophils Percent Auto 0.5 0 - 4 % [facility] Basophils Percent Auto 0.2 0 - 2 % [facility] NRBC Pct Auto 0.0 0.0 - 0.2 /100WBC [facility] Neutrophils Absolute Auto 4.9 2.0 - 8.3 x10*3/uL [facility] Imm Gran Abs Auto 0.02 0.00 - 0.03 X10*3/uL [facility] Lymphocytes Absolute Auto 0.5(L) 1.2 - 4.9 X10*3/uL [facility] Monocytes Absolute Auto 0.4 0.1 - 1.2 X10*3/uL [facility] Eosinophils Absolute Auto 0.0 0.0 - 0.4 X10*3/uL [facility] Basophils Absolute Auto 0.0 0.0 - 0.2 X10*3/uL [facility] NRBC Abs Auto 0.000 0.0 - 0.012 X10*3/uL [facility] 11/27/2024 12:2 8 PM EDT 11/27/2024 12:36 PM EDT Narrative [facility] - 11/27/2024 12:39 PM EDT patient has power port . RN to access port when in room us Generic External Data Provider LAB BLOOD ORDERAB LES Final Result [facility] [address] [place] [address] [phone] * (ABNORMAL) Comprehensive Metabolic Panel (11/27/2024 12:28 PM EDT) Sodium 138 135 - 145 mmol/L [facility] Potassium 4.3 3.3 - 5.1 mmol/L [facility] Chloride 103 96 - 108 mmol/L [facility] Carbon Dioxide 24 22 - 29 mmol/L [facility] Anion Gap 15 12 - 20 [facility] Urea Nitrogen (BUN) 40(H) 9 - 16 mg/dL [facility] Creatinine, Serum 4.26(HH) 0.5 - 1.4 mg/dL [facility] Comment:Critical value for t est(s): CREA Results called to and readback by: ALISIA Person calling: DENISE Date:11/27/24 Time: 1256 Creatinine Clr Calc Pharmacy 12.9 [facility] Comment:Provided height and weight: 170.18 cm,72.575 kg.eGFR (calculated from the MDRD study equation) and eCrCl(calculated from the Cockcroft-Gault equation) are based ondifferent parameters and may not yield comparable results.If eCrCl result is absurd, please check patient'sheight/weight. Estimated Glomerular Filt Rate 10 [facility] Comment:Chronic Kidney Disea se: Estimated GFR < 60 mL/min/1.91b4Hmiixw Kidney Disease: Estimated GFR < 15 mL/min/1.73m2 Glucose 153(H) 60 - 115 mg/dL [facility] Calcium 8.2(L) 8.4 - 10.2 mg/dL [facility] Bilirubin, Total 0.4 0.0 - 1.0 mg/dL [facility] Aspartate Amino Transferase 20 5 - 31 U/L [facility] Alanine Aminotransferase <6 0 - 31 U/L [facility] Total Protein 7.0 6.5 - 8.0 g/dL [facility] Albumin Level 3.3(L) 3.5 - 5.0 g/dL [facility] Alkaline Phosphatase 111 39 - 117 U/L [facility] 11/27/2024 12:2 8 PM EDT 11/27/2024 12:36 PM EDT Narrative [facility] - 11/27/2024 12:57 PM EDT patient has power port . RN to access port when in room us Generic External Data Provider LAB BLOOD ORDERAB LES Final Result [facility] [address] [place] [phone] * XR Elbow 3+ Views Left (11/27/2024 10:15 AM EDT) Anatomical Region Laterality Modality Upper Extremities, Elbow Left Radiogr aphic Imaging 11/27/2024 10:1 5 AM EDT Narrative 11/27/2024 10:17 AM EDT [address] [address] XRay Report Signed Patient: Alix Sharp MR#: [id number] 43 : 1960 Acct:[id number] Age/Sex: 64 / F ADM Date: 11/27/24 Loc: HO.ED Attending Dr: Ordering Physician: Generic ED Physician Date of Service: 11/27/24 Procedure(s): XR elbow LT min 3V Accession Number(s): [id number] cc: Generic ED Physician; Marita Wetzel DO CLINICAL HISTORY: fall on elbow 3 view left elbow Comparison: None Findings: A tiny ossific fragment is situated adjacent to the coronoid process on the lateral view. A thin curvilinear focus of calcification or ossification projects along the posterior aspect of the distal humerus on the lateral view. Minimal ulnohumeral osteoarthritis. Small olecranon enthesophyte, possibly with a trace amount of adjacent subcutaneous air. An elbow joint effusion is present. Calcific atherosclerosis. IMPRESSION: 1. Chip fracture at the tip of the coronoid process. 2. Thin curvilinear ossific or calcific focus along the posterior aspect of the distal humerus on the lateral view, which may represent a fragmented medial epicondyle enthesophyte. 3. Elbow joint effusion. 4. Small olecranon enthesophyte at the triceps tendon insertion, possibly with a small amount of subcutaneous air. Correlate for soft tissue wound. This document has been electronically signed by: Clayton Conley DO on 11/27/2024 10:15:33 Dictated By: Clayton Conley MD Signed By: <Electronically signed by Clayton Conley MD in OV> 11/27/24 1016 DD/ 1015 TD/TT: 11/27/24 1015 Billing And Quality Technician: Procedure Note Juanita, Delvis - 11/27/[address] [address] XRay Report Signed Patient: Alix Sharp BMR#: [id number] 43 : 1960cct:[id number] Age/Sex: 64 / FADM Date: 11/27/24 Loc: HO.ED Attending Dr: Ordering Physician: Generic ED Physician Date of Service: 11/27/24 Procedure(s): XR elbow LT min 3V Accession Number(s): [id number] cc: Generic ED Physician; Marita Wetzel DO CLINICAL HISTORY: fall on elbow 3 view left elbow Comparison: None Findings: A tiny ossific fragment is situated adjacent to the coronoid process on the lateral view. A thin curvilinear focus of calcification or ossification projects along the posterior aspect of the distal humerus on the lateral view. Minimal ulnohumeral osteoarthritis. Small olecranon enthesophyte, possibly with a trace amount of adjacent subcutaneous air. An elbow joint effusion is present. Calcific atherosclerosis. IMPRESSION: 1. Chip fracture at the tip of the coronoid process. 2. Thin curvilinear ossific or calcific focus along the posterior aspect of the distal humerus on the lateral view, which may represent a fragmented medial epicondyle enthesophyte. 3. Elbow joint effusion. 4. Small olecranon enthesophyte at the triceps tendon insertion, possibly with a small amount of subcutaneous air. Correlate for soft tissue wound. This document has been electronically signed by: Clayton Conley DO on 11/27/2024 10:15:33 Dictated By: Clayton Conley MD Signed By: <Electronically signed by Clayton Conley MD in OV> 11/27/24 1016 DD/ 1015 TD/TT: 11/27/24 1015 Billing And Quality Technician: us [facility] External Provider IMG XR PROCEDURES Final Result * XR Hip left with Pelvis 1 view (11/27/2024 10:00 AM EDT) Anatomical Region Laterality Modality Lower Extremities, Hip Bilateral Radiograp hic Imaging 11/27/2024 10:0 0 AM EDT Narrative 11/27/2024 10:01 AM EDT [address] [address] XRay Report Signed Patient: Alix Sharp MR#: [id number] : 1960 Acct:[id number] Age/Sex: 64 / F ADM Date: 11/27/24 Loc: HO.ED Attending Dr: Ordering Physician: Generic ED Physician Date of Service: 11/27/24 Procedure(s): XR hip LT w PEL1V Accession Number(s): [id number] cc: Generic ED Physician; Marita Wetzel DO CLINICAL HISTORY: fall of left hip 3 view, pelvis and left hip Comparison: None provided Findings: Curvilinear lucent line projecting over the medial aspect of the right inferior ischiopubic ramus may be artifactual or due to an age-indeterminate fracture. Correlate clinically. Otherwise no acute fracture. Three proximal femoral screws without hardware complications. Cwie-tn-pbgnjoxg degenerative narrowing of the superomedial aspects of the hip joints bilaterally. Postsurgical lower abdominal/pelvic changes. Vascular calcifications. IMPRESSION: Curvilinear lucent line projecting over the medial aspect of the right inferior ischiopubic ramus may be artifactual or due to an age-indeterminate fracture. Correlate clinically. Otherwise no acute fracture. This document has been electronically signed by: Evelyne Dunn MD on 11/27/2024 10:00:39 Dictated By: Evelyne Dunn MD Signed By: <Electronically signed by Evelyne Dunn MD in OV> 11/27/24 1001 DD/ 1000 TD/TT: 11/27/24 1000 Billing And Quality Technician: Procedure Note Donotuseinterpreter, Image - 11/27/[address] [address] XRay Report Signed Patient: Alix Sharp BMR#: [id number] : 1Acct:[id number] Age/Sex: 64 / FADM Date: 11/27/24 Loc: HO.ED Attending Dr: Ordering Physician: Generic ED Physician Date of Service: 11/27/24 Procedure(s): XR hip LT w PEL1V Accession Number(s): [id number] cc: Generic ED Physician; Marita Wetzel DO CLINICAL HISTORY: fall of left hip 3 view, pelvis and left hip Comparison: None provided Findings: Curvilinear lucent line projecting over the medial aspect of the right inferior ischiopubic ramus may be artifactual or due to an age-indeterminate fracture. Correlate clinically. Otherwise no acute fracture. Three proximal femoral screws without hardware complications. Kokj-rj-lroggeqg degenerative narrowing of the superomedial aspects of the hip joints bilaterally. Postsurgical lower abdominal/pelvic changes. Vascular calcifications. IMPRESSION: Curvilinear lucent line projecting over the medial aspect of the right inferior ischiopubic ramus may be artifactual or due to an age-indeterminate fracture. Correlate clinically. Otherwise no acute fracture. This document has been electronically signed by: Evelyne Dunn MD on 11/27/2024 10:00:39 Dictated By: Evelyne Dunn MD Signed By: <Electronically signed by Evelyne Dunn MD in OV> 11/27/24 1001 DD/ 1000 TD/TT: 11/27/24 1000 Billing And Quality Technician: [facility] External Provider IMG XR PROCEDURES Final Result * (ABNORMAL) Lipid Panel, Standard (10/06/2023) Triglycerides 157 40 - 160 mg/dL Cholesterol 115 0 - 200 mg/dL HDL Cholesterol 31(A) 35 - 70 mg/dL LDL Cholesterol 57 mg/dL Blood Venous blood specimen / Unknown Historical Provider LAB BLOOD ORDERABLES Carly l Result * BI Mammogram Screening Tomosynthesis Bilateral (07/17/2023 10:45 AM EDT) Anatomical Region Laterality Modality Breast Bilateral Mammography 07/17/2023 10:4 5 AM EDT Narrative 08/03/2023 8:29 PM EDT [address] [place] [address] Mammography Report Signed Patient: Alix Dennis MR#: [id number] : 1960 Acct:[id number] Age/Sex: 63 / F ADM Date: 07/17/23 Loc: HO.MAMMO Attending Dr: Marita Wetzel DO Ordering Physician: Marita Wetzel DO Results: 2B enign Findings Date of Service: 07/17/23 Follow Up: 1 Year From Orig ina Mammogram Procedure(s): MM tomosynthesis screening BI Accession Number(s): [id number] cc: Marita Wetzel DO EXAMINATION: MM SCREENING [...] Mai Gaffney MD in OV> 08/03/232024 DD/ 44 TD/TT: Billing And Quality Technician: Procedure Note Donotuseinterpreter, Image - 08/03/[address] [place] [address] Mammography Report Signed Patient: Alix Dennis FMR#: [id number] : 1Acct:[id number] Age/Sex: 63 / FADM Date: 07/17/23 Loc: HO.MAMMO Attending Dr: Marita Wetzel DO Ordering Physician: Marita Wetzelults: 2B enign Findings Date of Service: 07/17/23Follow Up: 1 Year From Orig ina Mammogram Procedure(s): MM tomosynthesis screening BI Accession Number(s): [id number] cc: Marita Wetzel DO EXAMINATION: MM SCREENING [...] MD in OV> 08/03/232024 DD/ 1045 TD/TT: Billing And Quality Technician: Marita Wetzel DO IMG BI PROCEDURES Edited Res ult - Final * Hm Pap Smear (08/12/2018) Pap Negative for intraephithelial lesion or malignancy Negative for intraephithelial lesion or malignancy, Other HPV Undetected Undetected, Indeterminate, Quantitative, Not Detected Historical Provider HEALTH MAINTENANCE Final Result from Last 3 Months or Most Recently Relevant to Health Maintenance Insurance MEDICARE [facility] [employer] Care Teams Infrastructure Analyst Relationship Specialty Start Date End Date Marita Wetzel DO [address] [place] [address] PCP - General Family Medicine 04/21/18 [facility] 05/22/24
--- OUTSIDE RECORDS SUMMARY | 2024-12-14 15:35 | XMS_ITS | Encounter Summary ---
Author Organization [facility] Address [address] [place] [address] Care Team Providers Care Category Development Analyst Name Role Phone Marita Wetzel DO Primary Care Provider +1- [phone] Encounter Details Date Type Department Care Team (Late st Contact Info) Description 05/21/2024 Lab Requisition [facility] - Main Lab [address] [facility] [place] [phone] Marily Gordillo MD [address] [place] [phone] Chronic embolism and thrombosis of unspecified vein; [...] unspecified documented in this encounter Care Teams Category Development Analyst Relationship Specialty Start Date End Date Marita Wetzel DO [address] [place], [place] PCP - General 01/09/23 documented as of this encounter
--- OUTSIDE RECORDS SUMMARY | 2024-12-14 15:35 | XMS_ITS | Encounter Summary ---
Author Organization [facility] Address [address] [place] [address] Phone Care Team Providers Care Knitting Inspector Name Role Phone Marita Wetzel DO Primary Care Provider Unava ilable Encounter Details Date Type Department Care Team (Late st Contact Info) Description 08/27/2023 Documentation Only [facility] [address] [place] [address] [place], [place], [place] [address] [place] [phone] Social History Tobacco Use Types Packs/Day Years [...] Support [facility] [address] [place] [address] 03/08/2025 12:30 PM EST Scheduled Only [facility] [address] [place] [phone] documented as of this encounter Visit Diagnoses Not on filedocumented in this encounter Care Teams Knitting Inspector Relationship Specialty Start Date End Date Marita Wetzel DO [address] [place] [address] PCP - General Family Medicine 11/14/22 documented as of this encounter
--- OUTSIDE RECORDS SUMMARY | 2024-12-14 15:35 | XMS_ITS | Encounter Summary ---
Author Organization [facility], Address [address] [place] [address] Phone Care Team Providers Care Airline Pilot/First Officer Name Role Phone Marita Wetzel DO Primary Care Provider Unava ilable Encounter Details Date Type Department Care Team (Late Contact Info) Description 12/10/2024 Orders Only [facility] [address] [place] [phone] Bernardo Doty MD [address] [place] [address] [place] [phone] Social History Tobacco Use Types Packs/Day Years [...] [facility] [address] [place] [address] 03/08/2025 12:30 PM EST Scheduled Only [facility] Access Center [address] [place] [address] [place] [phone] documented as of this encounter Procedures Procedure Name Priority Date/Time Associated Diagnosis Comments CHEMISTRY Routine 12/10/2024 documented in this encounter Results * Spectra Chemistry (12/10/2024) Potassium 4.8 3.5 - 5.1 mEq/L [facility] 12/10/2024 12/11/2024 1:2 4 PM EDT Narrative SPECTRAE - 12/11/2024 Unless otherwise specified, test(s) performed at: [facility], [address] [place], [place] [id number] CLINIC NURSE: Dwayne Fuentes M.D. For any questions, please call customer service at FREQUENCY:OTHER Resulting Agency Comment Specimen source: Serum us Bernardo Doty MD LAB BLOOD ORDERABLES Final Resul t [facility] See order comments or contact performing lab Unknown, [place] documented in this encounter Visit Diagnoses Not on filedocumented in this encounter Care Teams Airline Pilot/First Officer Relationship Specialty Start Date End Date Marita Wetzel DO [address] [place] [address] PCP - General Family Medicine 11/14/22 documented as of this encounter
--- OUTSIDE RECORDS SUMMARY | 2024-12-14 15:35 | XMS_ITS | Encounter Summary ---
Author Organization [facility] Address [address] [place] [address] Phone Care Team Providers Care Cylinder Checker Name Role Phone Marita Wetzel DO Primary Care Provider Unava ilable Encounter Details Date Type Department Care Team (Late st Contact Info) Description 09/11/2023 Documentation Only [facility] [address] [place] [phone] Pauline Aguayo [address] [place] [phone] Social History Tobacco Use Types Packs/Day Years [...] [facility] Center [address] [place] [address] 03/08/2025 12:30 PM EST Scheduled Only [facility] Center [address] [place] [phone] documented as of this encounter Visit Diagnoses Not on filedocumented in this encounter Care Teams Cylinder Checker Relationship Specialty Start Date End Date Marita Wetzel DO [address] [place] [address] PCP - General Family Medicine 11/14/22 documented as of this encounter
--- OUTSIDE RECORDS SUMMARY | 2024-12-14 15:35 | XMS_ITS | Encounter Summary ---
Author Organization [facility] Address [address] [place] [address] Phone Care Team Providers Care Instructor Hairspring Name Role Phone Marita Wetzel DO Primary Care Provider Unava ilable Encounter Details Date Type Department Care Team (Late st Contact Info) Description 09/12/2023 Documentation Only [facility] [address] [place] [phone] [place], [place], [place] [address] [place] [phone] Social History Tobacco Use Types Packs/Day Years [...] [facility] Access Center [address] [place] [phone] 03/08/2025 12:30 PM EST Scheduled Only [facility] V[facility] Access Center [address] [place] [phone] documented as of this encounter Visit Diagnoses Not on filedocumented in this encounter Care Teams Instructor Hairspring Relationship Specialty Start Date End Date Marita Wetzel DO [address] [place] [address] PCP - General Family Medicine 11/14/22 documented as of this encounter
--- OUTSIDE RECORDS SUMMARY | 2024-12-14 15:35 | XMS_ITS | Encounter Summary ---
Author Organization [facility] Address [address] [place] [address] Phone Care Team Providers Care Black Pickler Name Role Phone Marita Wetzel DO Primary Care Provider Unava ilable Encounter Details Date Type Department Care Team (Late st Contact Info) Description 08/28/2023 Documentation Only [facility] [address] [place] [phone] [place], [place], [place] [address] [place] [phone] Social History Tobacco Use Types Packs/Day Years [...] [facility] Vascular Access Center [address] [place] [phone] 03/08/2025 12:30 PM EST Scheduled Only [facility] V[facility] Access Center [address] [place] [phone] documented as of this encounter Visit Diagnoses Not on filedocumented in this encounter Care Teams Black Pickler Relationship Specialty Start Date End Date Marita Wetzel DO [address] [place] [address] PCP - General Family Medicine 11/14/22 documented as of this encounter
--- OUTSIDE RECORDS SUMMARY | 2024-12-14 15:35 | XMS_ITS | Encounter Summary ---
Author Organization [facility] Address [address] [place] [address] Phone Care Team Providers Care Supervisor Sterile Processing Name Role Phone Marita Wetzel DO Primary Care Provider Unava ilable Encounter Details Date Type Department Care Team (Late st Contact Info) Description 04/13/2024 Documentation Only [facility] [address] [place] [phone] [place], [place], [place] [address] [place] [phone] Social History Tobacco Use Types Packs/Day Years [...] [facility] [address] [place] [phone] 03/08/2025 12:30 PM EST Scheduled Only [facility] Vascular Access Delight [address] [place] [phone] documented as of this encounter Visit Diagnoses Not on filedocumented in this encounter Care Teams Supervisor Sterile Processing Relationship Specialty Start Date End Date Marita Wetzel DO [address] [place] [address] PCP - General Family Medicine 11/14/22 documented as of this encounter
--- OUTSIDE RECORDS SUMMARY | 2024-12-14 15:35 | XMS_ITS | Encounter Summary ---
Author Organization [facility] Address [address] [place] [address] Phone Care Team Providers Care Stonecutter Assistant Name Role Phone Marita Wetzel DO Primary Care Provider Unava ilable Encounter Details Date Type Department Care Team (Late st Contact Info) Description 11/11/2022 Documentation Only [facility] [address] [place] [phone] Pauline Aguayo [address] [place] [phone] Social History Tobacco Use Types Packs/Day Years [...] [facility] V[facility] Access Center [address] [place] [phone] 03/08/2025 12:30 PM EST Scheduled Only [facility] Center [address] [place] [phone] documented as of this encounter Visit Diagnoses Not on filedocumented in this encounter Care Teams Stonecutter Assistant Relationship Specialty Start Date End Date Marita Wetzel DO [address] [place] [address] PCP - General Family Medicine 11/14/22 documented as of this encounter
--- OUTSIDE RECORDS SUMMARY | 2024-12-14 15:36 | XMS_ITS | Encounter Summary ---
Author Organization [facility] Address [address] [place] [address] Care Team Providers Care Arc Trimmer Name Role Phone Marita Wetzel DO Primary Care Provider +1- [phone] Encounter Details Date Type Department Care Team (Late st Contact Info) Description 03/15/[address] [facility] - Main Lab [address] [facility] [place] [phone] Catalina Burr MD [address] [place] [address] Acute kidney failure, unspecified (CMS/HCC V24); Chronic [...] vein documented in this encounter Care Teams Arc Trimmer Relationship Specialty Start Date End Date Marita Wetzel DO [address] [place], [place] PCP - General 01/09/23 documented as of this encounter
--- OUTSIDE RECORDS SUMMARY | 2024-12-14 15:36 | XMS_ITS | Encounter Summary ---
Author Organization [facility] Address [address] [place] [address] Care Team Providers Care Laborer Tanbark Name Role Phone Mary JaneMarita yousif Primary Care Provider +1- [phone] Encounter Details Date Type Department Care Team (Late st Contact Info) Description 02/24/2024 Lab Requisition [facility] - Main Lab [address] [facility] [place] [address] Norbert Lopez MD [address] [facility] [address] [facility] [...] measures Acute kidney failure, unspecified (CMS/HCC) HEPARIN AND LOW MOLECULAR WEIGHT ANTI XA LEVEL Routine 02/24/2024 12:45 PM EST Encounter for [...] Travel phlebotomy fee (02/24/2024 12:45 PM EST) [facility] TRAVEL PHLEBOTOMY FEE Completed 02/24/2024 2:01 PM EST [facility] Blood Venous blood specimen / Unknown Venipuncture / Unknown 02/24/2024 12:45 PM EST 02/24/2024 1:29 PM EST Norbert Lopez MD LAB BLOOD ORDERABLES Final Resul t Performing Organization Address [facility] Co de Phone Number [facility] [address] [place] [address], [place] [phone] * (ABNORMAL) Heparin and low molecular weight anti Xa level (02/24/2024 12:45 PM EST) [facility] Heparin Anti-Xa 0.28(L) 0.30 - 0.70 I Unit/mL LAB COAGULATION METHOD 02/24/2024 2:02 PM EST [facility] Blood Venous blood specimen / Unknown Venipuncture / Unknown 02/24/2024 12:45 PM EST 02/24/2024 1:29 PM EST Narrative [facility] - 02/24/2024 2:02 PM EST Therapeutic range listed is for Unfractionated Heparin. LMW Heparin therapeutic range: 0.50-1.20 IU/mL Norbert Lopez MD LAB BLOOD ORDERABLES Final Resul t Performing Organization Address [facility]/ZIP Co de Phone Number [facility] [address] [place] [address], [place] [phone] * (ABNORMAL) Basic metabolic panel (02/24/2024 12:45 PM EST) [facility] Sodium 137 133 - 145 mmol/L LAB CHEMISTRY METHOD 02/24/2024 3:10 PM [facility] Potassium 3.7 3.5 - 5.5 mmol/L LAB CHEMISTRY METHOD 02/24/2024 3:10 PM [facility] Chloride 104 96 - 110 mmol/L LAB CHEMISTRY METHOD 02/24/2024 3:10 PM [facility] CO2 22 21 - 32 mmol/L LAB CHEMISTRY METHOD 02/24/2024 3:10 PM [facility] Anion Gap 11 3 - 11 LAB CHEMISTRY METHOD 02/24/2024 3:10 PM [facility] Glucose 163(H) 70 - 100 mg/dL LAB CHEMISTRY METHOD 02/24/2024 3:10 PM [facility] BUN 33(H) 5 - 25 mg/dL LAB CHEMISTRY METHOD 02/24/2024 3:10 PM [facility] Creatinine 3.25(H) 0.50 - 1.10 mg/dL LAB CHEMISTRY METHOD 02/24/2024 3:10 PM [facility] eGFR 15(L) >=60 mL/min/1. 73m2 LAB CHEMISTRY METHOD 02/24/2024 3:10 PM [facility] Comment:Calculation based on the Chronic Kidney Disease Epidemiology Collaboration (CKD-EPI) equation refit without adjustment for race. BUN/Creatinine Ratio 10.2 LAB CHEMISTRY METHOD 02/24/2024 3:10 PM [facility] Calcium 9.4 8.5 - 10.5 mg/dL LAB CHEMISTRY METHOD 02/24/2024 3:10 PM [facility] Blood Venous blood specimen / Unknown Venipuncture / Unknown 02/24/2024 12:45 PM EST 02/24/2024 1:29 PM EST us Norbert Lopez MD LAB BLOOD ORDERABLES Final Resul t [facility] [address] [place] [address], * (ABNORMAL) Complete blood count (02/24/2024 12:45 PM EST) [facility] WBC 11.3(H) 4.8 - 10.8 K/mcL LAB HEMETOLOGY METHOD 02/24/2024 1:38 PM [facility] RBC 3.30(L) 3.80 - 4.80 M/mcL LAB HEMETOLOGY METHOD 02/24/2024 1:38 PM [facility] Hemoglobin 9.2(L) 11.5 - 16.0 g/dL LAB HEMETOLOGY METHOD 02/24/2024 1:38 PM [facility] Hematocrit 31.3(L) 35.0 - 47.0 % LAB HEMETOLOGY METHOD 02/24/2024 1:38 PM [facility] MCV 95.4 79.0 - 98.0 FL LAB HEMETOLOGY METHOD 02/24/2024 1:38 PM [facility] MCH 28.0 27.0 - 32.0 pcg LAB HEMETOLOGY METHOD 02/24/2024 1:38 PM [facility] MCHC 29.4(L) 32.0 - 37.0 g/dL LAB HEMETOLOGY METHOD 02/24/2024 1:38 PM [facility] RDW 16.6(H) 11.0 - 15.0 % LAB HEMETOLOGY METHOD 02/24/2024 1:38 PM [facility] Platelets 278 130 - 400 K/mcL LAB HEMETOLOGY METHOD 02/24/2024 1:38 PM [facility] MPV 10.7 7.0 - 11.0 FL LAB HEMETOLOGY METHOD 02/24/2024 1:38 PM [facility] NRBC 0.0 <1.0 % LAB HEMETOLOGY METHOD 02/24/2024 1:38 PM EST [facility] NRBC Absolute 0.00 <0.10 K/mcL LAB HEMETOLOGY METHOD 02/24/2024 1:38 PM EST [facility] Blood Venous blood specimen / Unknown Venipuncture / Unknown 02/24/2024 12:45 PM EST 02/24/2024 1:29 PM EST us Norbert Lopez MD LAB BLOOD ORDERABLES Final Resul t [facility] [address] [place] [address], documented in this encounter Visit Diagnoses Diagnosis Encounter for other specified prophylactic measures Acute kidney failure, unspecified (CMS/HCC V24) Acute kidney failure, unspecified documented in this encounter Care Teams Laborer Tanbark Relationship Specialty Start Date End Date Marita Wetzel DO [address] [place] [address] PCP - General 01/09/23 documented as of this encounter
--- OUTSIDE RECORDS SUMMARY | 2024-12-14 15:36 | XMS_ITS | Encounter Summary ---
Author Organization [facility] Address [address] [place] [address] Care Team Providers Care Cut In Worker Name Role Phone Marita Wetzel DO Primary Care Provider +1- [phone] Encounter Details Date Type Department Care Team (Late st Contact Info) Description 05/12/2024 Lab Requisition [facility] - Main Lab 299 [facility] [employer] [place] [phone] Marily Gordillo MD [address] [place] [address] Chronic kidney disease, unspecified; Anemia, [...] unspecified documented in this encounter Care Teams Cut In Worker Relationship Specialty Start Date End Date Marita Wetzel DO [address] [place] [address] PCP - General 01/09/23 documented as of this encounter
--- OUTSIDE RECORDS SUMMARY | 2024-12-14 15:36 | XMS_ITS | Encounter Summary ---
Author Organization [facility] Address [address] [place] [address] Phone Care Team Providers Care Environmental Control Administrator Name Role Phone Marita Wetzel DO Primary Care Provider Unava ilable Encounter Details Date Type Department Care Team (Late st Contact Info) Description 06/12/2023 Documentation Only [facility] [address] [place] [address] [place], [place], [place] [address] [place] [phone] Social History Tobacco Use Types Packs/Day Years [...] [facility] Vascular Access Center [address] [place] [phone] 03/08/2025 12:30 PM EST Scheduled Only [facility] V[facility] Access Center [address] [place] [phone] documented as of this encounter Visit Diagnoses Not on filedocumented in this encounter Care Teams Environmental Control Administrator Relationship Specialty Start Date End Date Marita Wetzel DO [address] [place] [address] PCP - General Family Medicine 11/14/22 documented as of this encounter
--- OUTSIDE RECORDS SUMMARY | 2024-12-14 15:36 | XMS_ITS | Encounter Summary ---
Author Organization [facility] Address [address] [place] [address] Care Team Providers Care Planner/Scheduler Name Role Phone Marita Wetzel Primary Care Provider +1- [phone] Encounter Details Date Type Department Care Team (Late st Contact Info) Description 04/23/2024 Lab Requisition [facility] - Main Lab [address] [place] [phone] Marily Gordillo MD [address] [place] [address] Chronic embolism and thrombosis of [...] LAB CHEMISTRY METHOD 04/26/2024 9:11 AM EST [facility] Potassium 3.4(L) 3.5 - 5.5 mmol/L LAB CHEMISTRY METHOD 04/26/2024 9:11 AM EST [facility] Chloride 109 96 - 110 mmol/L LAB CHEMISTRY METHOD 04/26/2024 9:11 AM [facility] CO2 27 21 - 32 mmol/L LAB CHEMISTRY METHOD 04/26/2024 9:11 AM [facility] Anion Gap 7 3 - 11 LAB CHEMISTRY METHOD 04/26/2024 9:11 AM [facility] Glucose 80 70 - 100 mg/dL LAB CHEMISTRY METHOD 04/26/2024 9:11 AM [facility] BUN 29(H) 5 - 25 mg/dL LAB CHEMISTRY METHOD 04/26/2024 9:11 AM [facility] Creatinine 3.36(H) 0.50 - 1.10 mg/dL LAB CHEMISTRY METHOD 04/26/2024 9:11 AM [facility] eGFR 15(L) >=60 mL/min/1. 73m2 LAB CHEMISTRY METHOD 04/26/2024 9:11 AM [facility] Comment:Calculation based on the Chronic Kidney Disease Epidemiology Collaboration (CKD-EPI) equation refit without adjustment for race. BUN/Creatinine Ratio 8.6 LAB CHEMISTRY METHOD 04/26/2024 9:11 AM [facility] Albumin 2.1(L) 3.2 - 5.0 g/dL LAB CHEMISTRY METHOD 04/26/2024 9:11 AM [facility] Calcium 8.7 8.5 - 10.5 mg/dL LAB CHEMISTRY METHOD 04/26/2024 9:11 AM [facility] Phosphorus 2.5 2.5 - 4.5 mg/dL LAB CHEMISTRY METHOD 04/26/2024 9:11 AM [facility] Blood Venous blood specimen / Unknown Venipuncture / Unknown 04/26/2024 6:18 AM EST 04/26/2024 8:28 AM EST Marily Gordillo MD LAB BLOOD ORDERABLES Final Resul t [facility] [address] [place] [address], documented in this encounter Visit Diagnoses Diagnosis Chronic embolism and thrombosis of unspecified vein Acute kidney failure, unspecified (CMS/HCC V24) Acute kidney failure, unspecified documented in this encounter Care Teams Planner/Scheduler Relationship Specialty Start Date End Date Marita Wetzel DO [address] [place] [address] PCP - General 01/09/23 documented as of this encounter
--- OUTSIDE RECORDS SUMMARY | 2024-12-14 15:36 | XMS_ITS | Encounter Summary ---
Author Organization [facility] Address [address] [place] [address] Care Team Providers Care Enterprise Architect Name Role Phone Mary JaneMarita yousif Primary Care Provider +1- [phone] Encounter Details Date Type Department Care Team (Late st Contact Info) Description 03/05/2024 Lab Requisition [facility] - Main Lab [address] [facility] [place] [address] Catalina Burr MD [address] [place] [address] Chronic embolism and thrombosis of unspecified vein; [...] - 20.0 ng/mL 03/10/2024 1:48 PM EST [facility] Comment: Additional Information: Toxic Level > 26 ng/mL Organ Post Transp. (months) Trough Level (ng/mL) Kidney Up to 3 7.0 - 20.0 >3 5.0 - 15.0 Heart Up to 3 10.0 - 20.0 >3 5.0 - 15.0 Liver Up to 12 5.0 - 20.0 Tacrolimus determined by a LC-MS/MS procedure. If applicable, any drug confirmation testing reported here was developed and the performance characteristics determined by [facility]. This confirmation testing has not been cleared or approved by the FDA. The laboratory is regulated under CLIA as qualified to perform high-complexity testing. This test is used for patient testing purposes. It should not be regarded as investigational or for research. Test performed at [facility], [address], [place], [place] [id number] Ashtyn Leigh MD, PhD - Medical Stenographer Blood Venous blood specimen / Unknown Venipuncture / Unknown 03/08/2024 6:29 AM EST 03/08/2024 7:46 AM EST us Catalina Burr MD LAB BLOOD ORDERABLES Final Resul t [facility] [address] [place] [address] * (ABNORMAL) Renal function panel (03/08/2024 6:29 AM EST) Sodium 139 133 - 145 mmol/L LAB CHEMISTRY METHOD 03/08/2024 8:58 AM EST [facility] Potassium 4.5 3.5 - 5.5 mmol/L LAB CHEMISTRY METHOD 03/08/2024 8:58 AM [facility] Chloride 108 96 - 110 mmol/L LAB CHEMISTRY METHOD 03/08/2024 8:58 AM [facility] CO2 20(L) 21 - 32 mmol/L LAB CHEMISTRY METHOD 03/08/2024 8:58 AM [facility] Anion Gap 11 3 - 11 LAB CHEMISTRY METHOD 03/08/2024 8:58 AM [facility] Glucose 93 70 - 100 mg/dL LAB CHEMISTRY METHOD 03/08/2024 8:58 AM [facility] BUN 35(H) 5 - 25 mg/dL LAB CHEMISTRY METHOD 03/08/2024 8:58 AM [facility] Creatinine 3.99(H) 0.50 - 1.10 mg/dL LAB CHEMISTRY METHOD 03/08/2024 8:58 AM [facility] eGFR 12(L) >=60 mL/min/1. 73m2 LAB CHEMISTRY METHOD 03/08/2024 8:58 AM [facility] Comment:Calculation based on the Chronic Kidney Disease Epidemiology Collaboration (CKD-EPI) equation refit without adjustment for race. BUN/Creatinine Ratio 8.8 LAB CHEMISTRY METHOD 03/08/2024 8:58 AM [facility] Albumin 2.3(L) 3.2 - 5.0 g/dL LAB CHEMISTRY METHOD 03/08/2024 8:58 AM [facility] Calcium 9.0 8.5 - 10.5 mg/dL LAB CHEMISTRY METHOD 03/08/2024 8:58 AM [facility] Phosphorus 3.2 2.5 - 4.5 mg/dL LAB CHEMISTRY METHOD 03/08/2024 8:58 AM [facility] Blood Venous blood specimen / Unknown Venipuncture / Unknown 03/08/2024 6:29 AM EST 03/08/2024 7:46 AM EST Catalina Burr MD LAB BLOOD ORDERABLES Final Resul t [facility] [address] [place] [address], * (ABNORMAL) Complete blood count (03/08/2024 6:29 AM EST) WBC 9.8 4.8 - 10.8 K/mcL LAB HEMETOLOGY METHOD 03/08/2024 8:10 AM EST [facility] RBC 2.90(L) 3.80 - 4.80 M/mcL LAB HEMETOLOGY METHOD 03/08/2024 8:10 AM EST [facility] Hemoglobin 7.9(L) 11.5 - 16.0 g/dL LAB HEMETOLOGY METHOD 03/08/2024 8:10 AM EST [facility] Hematocrit 28.5(L) 35.0 - 47.0 % LAB HEMETOLOGY METHOD 03/08/2024 8:10 AM EST [facility] MCV 99.3(H) 79.0 - 98.0 FL LAB HEMETOLOGY METHOD 03/08/2024 8:10 AM EST [facility] MCH 27.5 27.0 - 32.0 pcg LAB HEMETOLOGY METHOD 03/08/2024 8:10 AM [facility] MCHC 27.7(L) 32.0 - 37.0 g/dL LAB HEMETOLOGY METHOD 03/08/2024 8:10 AM [facility] RDW 17.2(H) 11.0 - 15.0 % LAB HEMETOLOGY METHOD 03/08/2024 8:10 AM [facility] Platelets 299 130 - 400 K/mcL LAB HEMETOLOGY METHOD 03/08/2024 8:10 AM [facility] MPV 11.5(H) 7.0 - 11.0 FL LAB HEMETOLOGY METHOD 03/08/2024 8:10 AM EST [facility] NRBC 0.0 <1.0 % LAB HEMETOLOGY METHOD 03/08/2024 8:10 AM EST [facility] NRBC Absolute 0.00 <0.10 K/mcL LAB HEMETOLOGY METHOD 03/08/2024 8:10 AM EST [facility] Blood Venous blood specimen / Unknown Venipuncture / Unknown 03/08/2024 6:29 AM EST 03/08/2024 7:46 AM EST us Catalina Burr MD LAB BLOOD ORDERABLES Final Resul t [facility] [address] [place] [address], [place] [phone] documented in this encounter Visit Diagnoses Diagnosis Chronic embolism and thrombosis of unspecified vein Acute kidney failure, unspecified (CMS/HCC V24) Acute kidney failure, unspecified Type 2 diabetes mellitus without complications (CMS/HCC V24, CMS/HCC V28) documented in this encounter Care Teams Enterprise Architect Relationship Specialty Start Date End Date Marita Wetzel DO [address] [place] [address] PCP - General 01/09/23 documented as of this encounter
--- OUTSIDE RECORDS SUMMARY | 2024-12-14 15:36 | XMS_ITS | Clinical Summary ---
Author Organization [address] Address [address] [place] [phone] Phone Care Team Providers Care Veneer Measurer Name Role Phone Mary JaneMarita yousif Scottie MARROQUIN Primary Care Provider +1- [phone] Immunizations Name Administration Dates Next Due Moderna [...] 05/16/2023 Social Influencers of Health Screening 05/16/2023 COVID-19 Vaccine ( season) 2023 02/01/2022, 06/22/2020, 05/25/2020 Diabetes: Annual Urine Albumin-Creatinine Ratio (uACR) 03/01/2024 Depression Screening 04/21/2024 Diabetes: Blood Sugar Control Test (HGBA1C) 10/18/2024 04/20/2024, 04/20/2024, 02/03/2024, Additional history exists Influenza Vaccine (#1) 2024 , 02/26/2023, 01/23/2022, Additional history exists Diabetes: Annual GFR (Glomerular [...] Completed 10/02/2021, 10/01/2021, 08/03/2021, Additional history exists Hepatitis C Screening Completed [...] [facility] Comment:Calculation based on the Chronic Kidney Disease Epidemiology Collaboration (CKD-EPI) equation refit without adjustment for race. BUN/Creatinine Ratio 13.0 LAB CHEMISTRY METHOD 05/10/2024 11:45 AM [facility] Albumin 1.7(L) 3.2 - 5.0 g/dL LAB CHEMISTRY METHOD 05/10/2024 11:45 AM [facility] Calcium 8.4(L) 8.5 - 10.5 mg/dL LAB CHEMISTRY METHOD 05/10/2024 11:[address] [facility] Phosphorus 2.1(L) 2.5 - 4.5 mg/dL LAB CHEMISTRY METHOD 05/10/2024 11:[address] [facility] Blood Venous blood specimen / Unknown Venipuncture / Unknown 05/10/2024 5:50 AM EST 05/10/2024 9:58 AM EST us Marily Gordillo MD LAB BLOOD ORDERABLES Final Resul t [facility] [address] [place] [address], from Last 3 Months or Most Recently Relevant to Health Maintenance Insurance MEDICARE Care Teams Veneer Measurer Relationship Specialty Start Date End Date aMrita Wetzel DO [address] [place] [address] PCP - General 01/09/23
--- OUTSIDE RECORDS SUMMARY | 2024-12-14 15:36 | XMS_ITS | Encounter Summary ---
Author Organization [facility] Address [address] [place] [address] Care Team Providers Care Municipal Clerk Name Role Phone Marita Wetzel DO Primary Care Provider +1- [phone] Encounter Details Date Type Department Care Team (Late st Contact Info) Description 04/29/2024 Lab Requisition [facility] - Main Lab [address] [facility] [place] [phone] Marily Gordillo MD [address] [place] [phone] Chronic embolism and thrombosis of unspecified vein; [...] unspecified documented in this encounter Care Teams Municipal Clerk Relationship Specialty Start Date End Date Marita Wetzel DO [address] [place], [place] PCP - General 01/09/23 documented as of this encounter
--- OUTSIDE RECORDS SUMMARY | 2024-12-14 15:36 | XMS_ITS | Encounter Summary ---
Author Organization [facility] Address [address] [place] [address] Care Team Providers Care V Belt Inspector Name Role Phone Marita Wetzel DO Primary Care Provider +1- [phone] Encounter Details Date Type Department Care Team (Late st Contact Info) Description 04/28/[address] [facility] - Main Lab [address] [facility] [employer] [place] [phone] Marily Gordillo MD [address] [place] [address] Chronic kidney disease, unspecified; Anemia, [...] unspecified documented in this encounter Care Teams V Belt Inspector Relationship Specialty Start Date End Date Marita Wetzel DO [address] [place] [address] PCP - General 01/09/23 documented as of this encounter
--- OUTSIDE RECORDS SUMMARY | 2024-12-14 15:36 | XMS_ITS | Encounter Summary ---
Author Organization [facility] Address [address] [place] [address] Care Team Providers Care Pressroom Supervisor Name Role Phone Marita Wetzel Primary Care Provider +1- [phone] Encounter Details Date Type Department Care Team (Late st Contact Info) Description 03/29/2024 Lab Requisition [facility] - Main Lab 299 [facility] [place] [address] Catalina Burr MD [address] [place] [address] End stage renal disease (CMS/HCC V24, CMS/HCC [...] 6:53 AM EST End stage renal disease (CMS/[facility]) documented in this encounter Results * Tacrolimus level (03/29/2024 6:53 AM EST) Tacrolimus Level 6.8 5.0 - 20.0 ng/mL 03/31/2024 12:22 PM EST [facility] Comment: Additional Information: Toxic Level > [...] developed and the performance characteristics determined by [facility]. This confirmation testing has not been cleared or approved by the FDA. The laboratory is regulated under CLIA as qualified to perform high-complexity testing. This test is used for patient testing purposes. It should not be regarded as investigational or for research. Test performed at [facility], [address] , [place] [address] Ashtyn Leigh MD, PhD - Demand Planning Manager Blood Venous blood specimen / Unknown Venipuncture / Unknown 03/29/2024 6:53 AM EST 03/29/2024 8:32 AM EST us Catalina Burr MD LAB BLOOD ORDERABLES Final Resul t [facility] [address] [place] [address] * (ABNORMAL) Renal function panel (03/29/2024 6:53 AM EST) Sodium 140 133 - 145 mmol/L LAB CHEMISTRY METHOD 03/29/2024 10:07 AM EST [facility] Potassium 3.9 3.5 - 5.5 mmol/L LAB CHEMISTRY METHOD 03/29/2024 10:07 AM EST [facility] Chloride 109 96 - 110 mmol/L LAB CHEMISTRY METHOD 03/29/2024 10:07 AM [facility] CO2 20(L) 21 - 32 mmol/L LAB CHEMISTRY METHOD 03/29/2024 10:07 AM [facility] Anion Gap 11 3 - 11 LAB CHEMISTRY METHOD 03/29/2024 10:07 AM [facility] Glucose 146(H) 70 - 100 mg/dL LAB CHEMISTRY METHOD 03/29/2024 10:07 AM [facility] BUN 42(H) 5 - 25 mg/dL LAB CHEMISTRY METHOD 03/29/2024 10:07 AM [facility] Creatinine 3.47(H) 0.50 - 1.10 mg/dL LAB CHEMISTRY METHOD 03/29/2024 10:07 AM [facility] eGFR 14(L) >=60 mL/min/1. 73m2 LAB CHEMISTRY METHOD 03/29/2024 10:07 AM [facility] Comment:Calculation based on the Chronic Kidney Disease Epidemiology Collaboration (CKD-EPI) equation refit without adjustment for race. BUN/Creatinine Ratio 12.1 LAB CHEMISTRY METHOD 03/29/2024 10:07 AM [facility] Albumin 2.0(L) 3.2 - 5.0 g/dL LAB CHEMISTRY METHOD 03/29/2024 10:07 AM [facility] Calcium 8.8 8.5 - 10.5 mg/dL LAB CHEMISTRY METHOD 03/29/2024 10:07 AM [facility] Phosphorus 2.5 2.5 - 4.5 mg/dL LAB CHEMISTRY METHOD 03/29/2024 10:07 AM [facility] Blood Venous blood specimen / Unknown Venipuncture / Unknown 03/29/2024 6:53 AM EST 03/29/2024 8:32 AM EST us Catalina Burr MD LAB BLOOD ORDERABLES Final Resul t [facility] [address] [place] [address], [place] [phone] * (ABNORMAL) Complete blood count (03/29/2024 6:53 AM EST) WBC 11.0(H) 4.8 - 10.8 K/mcL LAB HEMETOLOGY METHOD 03/29/2024 9:47 AM [facility] RBC 2.80(L) 3.80 - 4.80 M/[facility] LAB HEMETOLOGY METHOD 03/29/2024 9:47 AM [facility] Hemoglobin 7.7(L) 11.5 - 16.0 g/dL LAB HEMETOLOGY METHOD 03/29/2024 9:47 AM [facility] Hematocrit 27.0(L) 35.0 - 47.0 % LAB HEMETOLOGY METHOD 03/29/2024 9:47 AM [facility] MCV 97.8 79.0 - 98.0 FL LAB HEMETOLOGY METHOD 03/29/2024 9:47 AM [facility] MCH 27.9 27.0 - 32.0 pcg LAB HEMETOLOGY METHOD 03/29/2024 9:47 AM [facility] MCHC 28.5(L) 32.0 - 37.0 g/dL LAB HEMETOLOGY METHOD 03/29/2024 9:47 AM [facility] RDW 17.5(H) 11.0 - 15.0 % LAB HEMETOLOGY METHOD 03/29/2024 9:47 AM [facility] Platelets 301 130 - 400 K/[facility] LAB HEMETOLOGY METHOD 03/29/2024 9:47 AM [facility] MPV 10.3 7.0 - 11.0 FL LAB HEMETOLOGY METHOD 03/29/2024 9:47 AM [facility] NRBC 0.0 <1.0 % LAB HEMETOLOGY METHOD 03/29/2024 9:47 AM [facility] NRBC Absolute 0.00 <0.10 K/mcL LAB HEMETOLOGY METHOD 03/29/2024 9:47 AM [facility] Blood Venous blood specimen / Unknown Venipuncture / Unknown 03/29/2024 6:53 AM EST 03/29/2024 8:32 AM EST us Catalina Burr MD LAB BLOOD ORDERABLES Final Resul t [facility] [address] [place] [address], documented in this encounter Visit Diagnoses Diagnosis End stage renal disease (CMS/HCC V24, CMS/HCC V28) End stage renal disease documented in this encounter Care Teams Pressroom Supervisor Relationship Specialty Start Date End Date Marita Wetzel DO [address] [place] [address] PCP - General 01/09/23 documented as of this encounter
--- OUTSIDE RECORDS SUMMARY | 2024-12-14 15:36 | XMS_ITS | Encounter Summary ---
Author Organization [facility], Address [address] [place] [address] Phone Care Team Providers Care State Historical Society Director Name Role Phone Marita Wetzel DO Primary Care Provider Unava ilable Encounter Details Date Type Department Care Team (Late st Contact Info) Description 06/23/2023 Documentation Only [facility] [address] [place] [phone] [place], [place] [address] [place] [phone] Social History Tobacco Use Types Packs/Day Years [...] [facility] [address] [place] [phone] 03/08/2025 12:30 PM EST Scheduled Only [facility] [address] [place] [phone] documented as of this encounter Visit Diagnoses Not on filedocumented in this encounter Care Teams State Historical Society Director Relationship Specialty Start Date End Date Marita Wetzel DO [address] [place] [address] PCP - General Family Medicine 11/14/22 documented as of this encounter
--- OUTSIDE RECORDS SUMMARY | 2024-12-14 15:36 | XMS_ITS | Encounter Summary ---
Author Organization [facility] Address [address] [place] [address] Care Team Providers Care French Folding Machine Operator Name Role Phone Marita Wetzel Primary Care Provider +1- [phone] Encounter Details Date Type Department Care Team (Late st Contact Info) Description 04/02/2024 Lab Requisition [facility] - Main Lab [address] [facility] [place] [phone] Marily Gordillo MD [address] [place] [address] Chronic embolism and thrombosis of [...] - 20.0 ng/mL 04/07/2024 4:26 PM EST [facility] Comment: Additional Information: Toxic [...] developed and the performance characteristics determined by [facility]. This confirmation testing has not been cleared or approved by the FDA. The laboratory is regulated under CLIA as qualified to perform high-complexity testing. This test is used for patient testing purposes. It should not be regarded as investigational or for research. Test performed at [facility], [address], [place] [address] Ashtyn Leigh MD, PhD - Ip Paralegal Blood Venous blood specimen / Unknown Venipuncture / Unknown 04/05/2024 6:56 AM EST 04/05/2024 10:25 AM EST us Marily Gordillo MD LAB BLOOD ORDERABLES Final Resul t [facility] [address] [place] [address] * (ABNORMAL) Renal function panel (04/05/2024 6:56 AM EST) Pathologist [facility] Sodium 138 133 - 145 mmol/L LAB CHEMISTRY METHOD 04/05/2024 11:52 AM EST [facility] Potassium 5.0 3.5 - 5.5 mmol/L LAB CHEMISTRY METHOD 04/05/2024 11:52 AM EST [facility] Chloride 107 96 - 110 mmol/L LAB CHEMISTRY METHOD 04/05/2024 11:52 AM EST [facility] CO2 20(L) 21 - 32 mmol/L LAB CHEMISTRY METHOD 04/05/2024 11:52 AM [facility] Anion Gap 11 3 - 11 LAB CHEMISTRY METHOD 04/05/2024 11:52 AM [facility] Glucose 104(H) 70 - 100 mg/dL LAB CHEMISTRY METHOD 04/05/2024 11:52 AM [facility] BUN 56(H) 5 - 25 mg/dL LAB CHEMISTRY METHOD 04/05/2024 11:52 AM [facility] Creatinine 4.43(H) 0.50 - 1.10 mg/dL LAB CHEMISTRY METHOD 04/05/2024 11:52 AM [facility] eGFR 11(L) >=60 mL/min/1. 73m2 LAB CHEMISTRY METHOD 04/05/2024 11:52 AM [facility] Comment:Calculation based on the Chronic Kidney Disease Epidemiology Collaboration (CKD-EPI) equation refit without adjustment for race. BUN/Creatinine Ratio 12.6 LAB CHEMISTRY METHOD 04/05/2024 11:52 AM [facility] Albumin 1.9(L) 3.2 - 5.0 g/dL LAB CHEMISTRY METHOD 04/05/2024 11:52 AM [facility] Calcium 9.0 8.5 - 10.5 mg/dL LAB CHEMISTRY METHOD 04/05/2024 11:52 AM [facility] Phosphorus 3.1 2.5 - 4.5 mg/dL LAB CHEMISTRY METHOD 04/05/2024 11:52 AM [facility] Blood Venous blood specimen / Unknown Venipuncture / Unknown 04/05/2024 6:56 AM EST 04/05/2024 10:21 AM EST us Marily Gordillo MD LAB BLOOD ORDERABLES Final Resul t [facility] [address] [place] [address], * (ABNORMAL) Complete blood count (04/05/2024 6:56 AM EST) [facility] WBC 9.2 4.8 - 10.8 K/mcL LAB HEMETOLOGY METHOD 04/05/2024 10:42 AM [facility] RBC 2.50(L) 3.80 - 4.80 M/mcL LAB HEMETOLOGY METHOD 04/05/2024 10:42 AM [facility] Hemoglobin 6.8(L) 11.5 - 16.0 g/dL LAB HEMETOLOGY METHOD 04/05/2024 10:42 AM [facility] Hematocrit 24.8(L) 35.0 - 47.0 % LAB HEMETOLOGY METHOD 04/05/2024 10:42 AM [facility] MCV 99.6(H) 79.0 - 98.0 FL LAB HEMETOLOGY METHOD 04/05/2024 10:42 AM [facility] MCH 27.3 27.0 - 32.0 pcg LAB HEMETOLOGY METHOD 04/05/2024 10:42 AM [facility] MCHC 27.4(L) 32.0 - 37.0 g/dL LAB HEMETOLOGY METHOD 04/05/2024 10:42 AM [facility] RDW 16.7(H) 11.0 - 15.0 % LAB HEMETOLOGY METHOD 04/05/2024 10:42 AM [facility] Platelets 332 130 - 400 K/mcL LAB HEMETOLOGY METHOD 04/05/2024 10:42 AM [facility] MPV 10.2 7.0 - 11.0 FL LAB HEMETOLOGY METHOD 04/05/2024 10:42 AM [facility] NRBC 0.0 <1.0 % LAB HEMETOLOGY METHOD 04/05/2024 10:42 AM [facility] NRBC Absolute 0.00 <0.10 K/mcL LAB HEMETOLOGY METHOD 04/05/2024 10:42 AM EST [facility] Blood Venous blood specimen / Unknown Venipuncture / Unknown 04/05/2024 6:56 AM EST 04/05/2024 10:26 AM EST us Marily Gordillo MD LAB BLOOD ORDERABLES Final Resul t [facility] [address] [place] [address], [place] [phone] documented in this encounter Visit Diagnoses Diagnosis Chronic embolism and thrombosis of unspecified vein Acute kidney failure, unspecified (CMS/HCC V24) Acute kidney failure, unspecified documented in this encounter Care Teams French Folding Machine Operator Relationship Specialty Start Date End Date Marita Wetzel DO [address] [place] [address] PCP - General 01/09/23 documented as of this encounter
--- OUTSIDE RECORDS SUMMARY | 2024-12-14 15:36 | XMS_ITS | Encounter Summary ---
Author Organization [facility] Address [address] [place] [address] Care Team Providers Care Cyber Engineer Name Role Phone Mary JaneMarita yousif Primary Care Provider +1- [phone] Encounter Details Date Type Department Care Team (Late st Contact Info) Description 03/12/2024 Lab Requisition [facility] - Main Lab [address] [facility] [place] [address] Catalina Burr MD [address] [place], [place] [id number] Chronic embolism and thrombosis of unspecified vein; [...] - 20.0 ng/mL 03/17/2024 1:34 PM EST [facility] Comment: Additional Information: Toxic [...] or for research. Test performed at [facility], [address], [place] [address] Ashtyn Leigh MD, PhD - Graphic Art Designer Blood Venous blood specimen / Unknown Venipuncture / Unknown 03/15/2024 8:20 AM EST 03/15/2024 10:20 AM EST Catalina Burr MD LAB BLOOD ORDERABLES Final Resul t [facility] [address] [place] [address] * (ABNORMAL) Renal function panel (03/15/2024 8:20 AM EST) Pathologist [facility] Sodium 139 133 - 145 mmol/L LAB CHEMISTRY METHOD 03/15/2024 11:[address] [facility] Potassium 5.6(H) 3.5 - 5.5 mmol/L LAB CHEMISTRY METHOD 03/15/2024 11:[address] [facility] Chloride 108 96 - 110 mmol/L LAB CHEMISTRY METHOD 03/15/2024 11:[address] [facility] CO2 19(L) 21 - 32 [...] [facility] Comment:Calculation based on the Chronic Kidney Disease Epidemiology Collaboration (CKD-EPI) equation refit without adjustment for race. BUN/Creatinine Ratio 9.1 LAB CHEMISTRY METHOD 03/15/2024 11:31 AM [facility] Albumin 2.6(L) 3.2 - 5.0 g/dL LAB CHEMISTRY METHOD 03/15/2024 11:31 AM [facility] Calcium 9.5 8.5 - 10.5 mg/dL LAB CHEMISTRY METHOD 03/15/2024 11:31 AM [facility] Phosphorus 4.0 2.5 - 4.5 mg/dL LAB CHEMISTRY METHOD 03/15/2024 11:31 AM [facility] Blood Venous blood specimen / Unknown Venipuncture / Unknown 03/15/2024 8:20 AM EST 03/15/2024 10:16 AM EST us Catalina Burr MD LAB BLOOD ORDERABLES Final Resul t [facility] [address] [place] [address], [place] [phone] documented in this encounter Visit Diagnoses Diagnosis Chronic embolism and thrombosis of unspecified vein Acute kidney failure, unspecified (CMS/[facility] V24) Acute kidney failure, unspecified Type 2 diabetes mellitus without complications ([facility] V24, CMS/[facility] V28) documented in this encounter Care Teams Cyber Engineer Relationship Specialty Start Date End Date Marita Wetzel DO [address] [place] [address] PCP - General 01/09/23 documented as of this encounter
--- OUTSIDE RECORDS SUMMARY | 2024-12-14 15:36 | XMS_ITS | Encounter Summary ---
Author Organization Address [address] [place] [address] Care Team Providers Care Drafter Engineering Name Role Phone Marita Wetzel Primary Care Provider +1- [phone] Encounter Details Date Type Department Care Team (Late st Contact Info) Description 04/30/2024 Lab Requisition [facility] - Main Lab [address] [place] [phone] Marily Gordillo MD [address] [place] [phone] Anemia, unspecified; Chronic embolism and thrombosis of [...] LAB CHEMISTRY METHOD 05/03/2024 10:59 AM EST [facility] Blood Venous blood specimen / Unknown Venipuncture / Unknown 05/03/2024 6:09 AM EST 05/03/2024 9:29 AM EST Marily Gordillo MD LAB BLOOD ORDERABLES Final Resul t Performing Organization Address [facility]/ZIP Co de Phone Number [facility] [address] [place] [address], [place] [phone] * (ABNORMAL) Ferritin (05/03/2024 6:09 AM EST) Ferritin 2,737(H) 8 - 252 ng/mL LAB CHEMISTRY METHOD 05/03/2024 10:59 AM EST [facility] Blood Venous blood specimen / Unknown Venipuncture / Unknown 05/03/2024 6:09 AM EST 05/03/2024 9:29 AM EST us Marily Gordillo MD LAB BLOOD ORDERABLES Final Resul t Performing Organization Address City/[facility]/ZIP Co de Phone Number [facility] [address] [place] [address], [place] [phone] documented in this encounter Visit Diagnoses Diagnosis Anemia, unspecified Chronic embolism and thrombosis of unspecified vein Acute kidney failure, unspecified (CMS/HCC V24) Acute kidney failure, unspecified documented in this encounter Care Teams Drafter Engineering Relationship Specialty Start Date End Date Marita Wetzel DO [address] [place] [address] PCP - General 01/09/23 documented as of this encounter
--- OUTSIDE RECORDS SUMMARY | 2024-12-14 15:36 | XMS_ITS | Encounter Summary ---
Author Organization [facility] Address [address] [place] [address] Care Team Providers Care Body And Fender Mechanic Name Role Phone Marita Wetzel DO Primary Care Provider +1- [phone] Encounter Details Date Type Department Care Team (Late st Contact Info) Description 04/10/2024 Lab Requisition [facility] - Main Lab [address] [facility] [employer] [place] [phone] Marily Gordillo MD [address] [place] [phone] Chronic embolism and thrombosis of unspecified vein; [...] unspecified documented in this encounter Care Teams Body And Fender Mechanic Relationship Specialty Start Date End Date Marita Wetzel DO [address] [place], [place] PCP - General 01/09/23 documented as of this encounter
--- OUTSIDE RECORDS SUMMARY | 2024-12-14 15:36 | XMS_ITS | Encounter Summary ---
Author Organization [facility] Address [address] [place] [address] Care Team Providers Care Vault Worker Name Role Phone Mary JaneMarita yousif Primary Care Provider +1- [phone] Encounter Details Date Type Department Care Team (Late st Contact Info) Description 03/19/2024 Lab Requisition [facility] - Main Lab [address] [facility] [place] [address] Catalina Burr MD [address] [place] [address] Chronic embolism and thrombosis of unspecified vein; [...] - 20.0 ng/mL 03/24/2024 1:11 PM EST [facility] Comment: Additional Information: Toxic Level > [...] the performance characteristics determined by [facility]. This confirmation testing has not been cleared or approved by the FDA. The laboratory is regulated under CLIA as qualified to perform high-complexity testing. This test is used for patient testing purposes. It should not be regarded as investigational or for research. Test performed at [facility], [address], [place], [place] [id number] Ashtyn Leigh MD, PhD - Metal Sprayer Blood Venous blood specimen / Unknown Venipuncture / Unknown 03/22/2024 6:50 AM EST 03/22/2024 8:05 AM EST us Catalina Burr MD LAB BLOOD ORDERABLES Final Resul t [facility] [address] [place] [address] * (ABNORMAL) Renal function panel (03/22/2024 6:50 AM EST) Sodium 138 133 - 145 mmol/L LAB CHEMISTRY METHOD 03/22/2024 8:55 AM EST [facility] Potassium 4.6 3.5 [...] [facility] Comment:Calculation based on the Chronic Kidney Disease Epidemiology Collaboration (CKD-EPI) equation refit without adjustment for race. BUN/Creatinine Ratio 10.4 LAB CHEMISTRY METHOD 03/22/2024 8:55 AM [facility] Albumin 2.1(L) [...] MD LAB BLOOD ORDERABLES Final Resul t [facility] [address] [place] [address], * (ABNORMAL) Complete blood count (03/22/2024 6:50 AM EST) WBC 10.4 4.8 - 10.8 K/mcL LAB HEMETOLOGY METHOD 03/22/2024 8:32 AM EST [facility] RBC 2.80(L) 3.80 - 4.80 M/mcL LAB HEMETOLOGY METHOD 03/22/2024 8:32 AM [facility] Hemoglobin 7.9(L) 11.5 - 16.0 g/dL LAB HEMETOLOGY METHOD 03/22/2024 8:32 AM [facility] Hematocrit 27.8(L) 35.0 - 47.0 % LAB HEMETOLOGY METHOD 03/22/2024 8:32 AM [facility] MCV 98.6(H) 79.0 - 98.0 FL LAB HEMETOLOGY METHOD 03/22/2024 8:32 AM [facility] MCH 28.0 27.0 - 32.0 pcg LAB HEMETOLOGY METHOD 03/22/2024 8:32 AM [facility] MCHC 28.4(L) 32.0 - 37.0 g/dL LAB HEMETOLOGY METHOD 03/22/2024 8:32 AM [facility] RDW 17.8(H) 11.0 - 15.0 % LAB HEMETOLOGY METHOD 03/22/2024 8:32 AM [facility] Platelets 218 130 - 400 K/mcL LAB HEMETOLOGY METHOD 03/22/2024 8:32 AM [facility] MPV 10.7 7.0 - 11.0 FL LAB HEMETOLOGY METHOD 03/22/2024 8:32 AM EST [facility] NRBC 0.0 <1.0 % LAB HEMETOLOGY METHOD 03/22/2024 8:32 AM EST [facility] NRBC Absolute 0.00 <0.10 K/mcL LAB HEMETOLOGY METHOD 03/22/2024 8:32 AM EST [facility] Blood Venous blood specimen / Unknown Venipuncture / Unknown 03/22/2024 6:50 AM EST 03/22/2024 8:05 AM EST us Catalina Burr MD LAB BLOOD ORDERABLES Final Resul t [facility] [address] [place] [address], [place] [phone] documented in this encounter Visit Diagnoses Diagnosis Chronic embolism and thrombosis of unspecified vein Acute kidney failure, unspecified (CMS/HCC V24) Acute kidney failure, unspecified Type 2 diabetes mellitus without complications (CMS/HCC V24, CMS/HCC V28) documented in this encounter Care Teams Vault Worker Relationship Specialty Start Date End Date Marita Wetzel DO [address] [place] [address] PCP - General 01/09/23 documented as of this encounter
--- OUTSIDE RECORDS SUMMARY | 2024-12-14 15:36 | XMS_ITS | Encounter Summary ---
Author Organization [facility] Address [address] [place] [address] Phone Care Team Providers Care Excelsior Picker Name Role Phone Marita Wetzel DO Primary Care Provider Unava ilable Encounter Details Date Type Department Care Team (Late st Contact Info) Description 07/04/2023 Documentation Only [facility] [address] [place] [phone] Pauline Aguayo [address] [place] [phone] Social History Tobacco Use Types Packs/Day Years [...] [facility] [address] [place] [phone] 03/08/2025 12:30 PM EST Scheduled Only [facility] [address] [facility] [place] [phone] documented as of this encounter Visit Diagnoses Not on filedocumented in this encounter Care Teams Excelsior Picker Relationship Specialty Start Date End Date Marita Wetzel DO [address] [place] [address] PCP - General Family Medicine 11/14/22 documented as of this encounter
--- OUTSIDE RECORDS SUMMARY | 2024-12-14 15:36 | XMS_ITS | Encounter Summary ---
Author Organization [facility] Address [address] [place] [address] Care Team Providers Care Wheel Mill Operator Name Role Phone Marita Wetzel DO Primary Care Provider +1- [phone] Encounter Details Date Type Department Care Team (Late st Contact Info) Description 2024 Lab Requisition [facility] - Main Lab [address] [facility] [employer] [place] [phone] Marily Gordillo MD [address] [place] [address] Chronic kidney disease, unspecified; Anemia, [...] unspecified documented in this encounter Care Teams Wheel Mill Operator Relationship Specialty Start Date End Date Marita Wetzel DO [address] [place] [address] PCP - General 01/09/23 documented as of this encounter
--- OUTSIDE RECORDS SUMMARY | 2024-12-14 15:36 | XMS_ITS | Encounter Summary ---
Author Organization [facility] Address [address] [place] [address] Phone Care Team Providers Care Associate Professor Of Biostatistics Name Role Phone Marita Wetzel DO Primary Care Provider Unava ilable Encounter Details Date Type Department Care Team (Late st Contact Info) Description 07/29/2023 Documentation Only [facility] [address] [place] [phone] Pauline Aguayo [address] [place] [phone] Social History Tobacco Use Types Packs/Day Years [...] Support [facility] [address] [place] [phone] 03/08/2025 12:30 PM EST Scheduled Only [facility] [address] [place] [phone] documented as of this encounter Visit Diagnoses Not on filedocumented in this encounter Care Teams Associate Professor Of Biostatistics Relationship Specialty Start Date End Date Marita Wetzel DO [address] [place] [address] PCP - General Family Medicine 11/14/22 documented as of this encounter
--- OUTSIDE RECORDS SUMMARY | 2024-12-14 15:36 | XMS_ITS | Encounter Summary ---
Author Organization [facility] Address [address] [place] [address] Care Team Providers Care Cupola Melting Supervisor Name Role Phone Marita Wetzel Primary Care Provider +1- [phone] Encounter Details Date Type Department Care Team (Late st Contact Info) Description 04/20/2024 Lab Requisition [facility] - Main Lab [address] [place] [phone] Marily Gordillo MD [address] [place] [address] Chronic kidney disease, unspecified; Anemia, [...] LAB CHEMISTRY METHOD 04/22/2024 11:50 AM EST [facility] Potassium 3.5 3.5 - 5.5 [...] [facility] Comment:Calculation based on the Chronic Kidney Disease Epidemiology Collaboration (CKD-EPI) equation refit without adjustment for race. BUN/Creatinine Ratio 11.3 LAB [...] Final Resul t [facility] [address] [place] [address], * (ABNORMAL) Complete blood count (04/22/2024 7:09 AM EST) WBC 8.2 4.8 - 10.8 K/mcL LAB HEMETOLOGY METHOD 04/22/2024 10:44 AM [facility] RBC 2.80(L) 3.80 - 4.80 M/[facility] LAB HEMETOLOGY METHOD 04/22/2024 10:44 AM [facility] [...] pcg LAB HEMETOLOGY METHOD 04/22/2024 10:44 AM [facility] MCHC 28.2(L) 32.0 - 37.0 g/dL LAB HEMETOLOGY METHOD 04/22/2024 10:44 AM EST [facility] RDW 16.5(H) 11.0 - 15.0 [...] Final Resul t [facility] [address] [place] [address], documented in this encounter Visit Diagnoses Diagnosis Chronic kidney disease, unspecified Anemia, unspecified documented in this encounter Care Teams Cupola Melting Supervisor Relationship Specialty Start Date End Date Marita Wetzel DO [address] [place] [address] PCP - General 01/09/23 documented as of this encounter
--- OUTSIDE RECORDS SUMMARY | 2024-12-14 15:36 | XMS_ITS | Encounter Summary ---
Author Organization [facility] Address [address] [place] [address] Care Team Providers Care Manager Of Distribution Name Role Phone Marita Wetzel Primary Care Provider +1- [phone] Encounter Details Date Type Department Care Team (Late st Contact Info) Description 04/30/2024 Lab Requisition [facility] - Main Lab [address] [place] [phone] Marily Gordillo MD [address] [place] [address] Chronic embolism and thrombosis of [...] LAB CHEMISTRY METHOD 05/03/2024 10:39 AM EST [facility] Potassium 5.1 3.5 - 5.5 [...] refit without adjustment for race. BUN/Creatinine Ratio 12.2 LAB [...] ORDERABLES Final Resul t Performing Organization Address City/[facility]/ZIP Co de Phone Number [facility] [address] [place] [address], * Tacrolimus level (05/03/2024 6:09 AM EST) Tacrolimus Level 6.5 5.0 - 20.0 ng/mL 05/06/2024 3:12 PM EST [facility] Comment: Additional Information: Toxic Level > [...] the performance characteristics determined by [facility]. This confirmation testing has not been cleared or approved by the FDA. The laboratory is regulated under CLIA as qualified to perform high-complexity testing. This test is used for patient testing purposes. It should not be regarded as investigational or for research. Test performed at [facility], [address] , [place] [address] Ashtyn Leigh MD, PhD - Journeyman Press Operator Blood Venous blood specimen / Unknown Venipuncture / Unknown 05/03/2024 6:09 AM EST 05/03/2024 9:28 AM EST Marily Gordillo MD LAB BLOOD ORDERABLES Final Resul t [facility] [address] [place] [address] documented in this encounter Visit Diagnoses Diagnosis Chronic embolism and thrombosis of unspecified vein Acute kidney failure, unspecified (CMS/HCC V24) Acute kidney failure, unspecified documented in this encounter Care Teams Manager Of Distribution Relationship Specialty Start Date End Date Marita Wetzel DO [address] [place] [address] PCP - General 01/09/23 documented as of this encounter
--- OUTSIDE RECORDS SUMMARY | 2024-12-14 15:36 | XMS_ITS | Encounter Summary ---
Author Organization [facility] Address [address] [place] [address] Care Team Providers Care Waiter Name Role Phone Marita Wetzel DO Primary Care Provider +1- [phone] Encounter Details Date Type Department Care Team (Late st Contact Info) Description 04/28/2024 Lab Requisition [facility] - Main Lab [address] [facility] [employer] [place] [phone] Marily Gordillo MD [address] [place] [address] Chronic kidney disease, unspecified; Anemia, [...] unspecified documented in this encounter Care Teams Waiter Relationship Specialty Start Date End Date Marita Wetzel DO [address] [place] [address] PCP - General 01/09/23 documented as of this encounter
--- OUTSIDE RECORDS SUMMARY | 2024-12-14 15:36 | XMS_ITS | Clinical Summary ---
Author Organization [facility], Address [address] [place] [address] [place] [address] Phone Care Team Providers Care Generating Station Mechanic Name Role Phone Marita Wetzel DO [...] day 240 tablet 11 08/01/19 24 Active sucralfate (Carafate) 1 g tablet Take 1 tablet (1 g total) by mouth in the morning and 1 tablet (1 g total) at noon and 1 tablet (1 g total) in the evening and 1 tablet (1 g total) before bedtime. 120 tablet 11 10/10/19 24 Active Additional Information Patient not taking.Reported on 02/04/2024 B complex-vitamin C-folic acid (NEPHRO-SHAY) 0.8 MG tablet Take 1 tablet by mouth 11/23/19 24 Active sertraline (ZOLOFT) 25 MG tablet Take 25 mg by mouth every morning 12/01/19 24 Active amLODIPine (NORVASC) 10 MG tablet Take 1 tablet (10 mg total) by mouth 1 (one) time each day 30 tablet 11 12/31/19 24 025 Active mycophenolate (MYFORTIC) 360 MG EC tablet Take 1 tablet (360 mg total) by mouth in the morning and 1 tablet (360 mg total) in the evening. 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 Stage 5 chronic kidney disease 05/28/2023 Kidney transplant rejection 05/28/2023 Kidney transplant failure and rejection 05/26/19 24 History of infection caused by extended spectrum [...] Encounters Date Type Department Care Team Description 12/13/2024 Orders Only [facility] [address] [address] Bernardo Doty MD 12/10/2024 Orders Only [facility] [address] [address] Bernardo Doty MD 12/08/2024 Treatment [facility], [address] [place] [address] Bernardo Doty MD End stage renal disease; Dependence on renal dialysis 12/08/2024 Orders Only [facility] [address] [address] Srinivas Agrawal MD 12/06/2024 Orders Only [facility] [address] [address] Bernardo Doty MD 12/06/2024 Treatment [facility], [address] [place] [address] Bernardo Doty MD End stage renal disease; Dependence on renal dialysis 12/01/2024 Orders Only [facility] [address] [address] Srinivas Agrawal MD 11/24/2024 Orders Only [facility] [address] [address] Srinivas Agrawal MD 11/22/2024 Treatment [facility], [address] [place] [address] Bernardo Doty MD End stage renal disease; Dependence on renal dialysis 11/19/2024 Treatment [facility], [address] [place] [address] Bernardo Doty MD End stage renal disease; Dependence on renal dialysis 11/17/2024 Orders Only [facility] [address] [address] Srinivas Agrawal MD 11/15/2024 Treatment [facility], [address] [place] [address] Bernardo Doty MD End stage renal disease; Dependence on renal dialysis 11/11/2024 10:30 AM EDT Clinical Support [facility], - [facility] [address] [place] [address] [place] [phone] Db Neumann MD Encounter for fitting and adjustment of vascular catheter [Z45.2] (Primary Dx); Chronic kidney disease, Stage V (HCC) [N18.5] 11/10/2024 Orders Only [facility] [address] [address] Srinivas Agrawal MD 11/08/2024 Treatment [facility], [address] [place] [address] Bernardo Doty MD End stage renal disease; Dependence on renal dialysis 11/05/2024 Orders Only [facility] [address] [address] Bernardo Doty MD 11/03/2024 Orders Only [facility] [address] [address] Srinivas Agrawal MD 11/01/2024 Treatment [facility], [address] [place] [address] Bernardo Doty MD End stage renal disease; Dependence on renal dialysis 11/01/2024 Orders Only [facility] [address] [address] Bernardo Doty MD 10/27/2024 Orders Only [facility] [address] [address] Srinivas Agrawal MD 10/25/2024 Orders Only [facility] [address] [address] Bernardo Doty MD 10/25/2024 Treatment [facility], [address] [place] [address] Bernardo Doty MD End stage renal disease; Dependence on renal dialysis 10/20/2024 Orders Only [facility] [address] [address] Srinivas Agrawal MD 10/18/2024 Orders Only [facility] [address] [address] Srinivas Agrawal MD 10/13/2024 9:00 AM EDT Clinical Support [facility] [address] [place] [address] Lakesha Sandoval Encounter for fitting and adjustment of vascular catheter [Z45.2] (Primary Dx); End stage renal disease (HCC) [N18.6] 10/12/2024 Telephone [facility] [address] [place] [phone] Stephany Stevens 10/11/2024 Orders Only [facility] [address] [address] Srinivas Agrawal MD 10/06/2024 Orders Only [facility] [address] [address] Srinivas Agrawal MD 10/04/2024 Orders Only [facility] [address] [address] Srinivas Agrawal MD 10/04/2024 Treatment [facility], [address] [place] [address] Bernardo Doty MD End stage renal disease; Dependence on renal dialysis 09/29/2024 Orders Only [facility] [address] [address] Srinivas Agrawal MD 09/27/2024 Orders Only [facility] [address] [address] Srinivas Agrawal MD 09/27/2024 Treatment [facility] [address] [place] [address] Bernardo Doty MD End stage renal disease; Dependence on renal dialysis 09/22/2024 Treatment [facility] [address] [place] [address] Bernardo Doty MD End stage renal disease; Dependence on renal dialysis 09/22/2024 Orders Only [facility] [address] [address] Srinivas Agrawal MD 09/20/2024 Treatment [facility] [address] [place] [address] Bernardo Doty MD End stage renal disease; Dependence on renal dialysis 09/20/2024 Orders Only [facility] [address] [place] [address] Srinivas Agrawal MD 09/16/2024 10:00 AM EDT Clinical Support [facility], - [facility] [address] [place] [phone] Db Neumann MD Encounter for fitting and adjustment of vascular catheter [Z45.2] (Primary Dx); End stage renal disease (HCC) [N18.6] 09/14/2024 Telephone [facility], [facility] V[facility] Access Center [address] [place] [phone] Sowmya Lau 09/13/2024 Treatment [facility], [address] [address] Bernardo Doty MD End stage renal disease; Dependence on renal dialysis from Last 3 Months Immunizations Immunization Administration [...] Sign Reading Time Taken Comments Blood Pressure 190/91 11/11/2024 4:06 PM EDT Pulse 61 11/11/2024 4:06 PM EDT Temperature 36.3 C (97.4 F) 02/04/2024 9:55 AM EDT Respiratory Rate - - Oxygen Saturation 92% 11/11/2024 4:06 PM EDT Inhaled Oxygen Concentration - - [...] Of [facility] Vascular Access Center [address] [place] [address] [place] [address] 03/08/2025 12:30 PM EST Scheduled Only [facility] [address] [place] [address] [place] [address] Health Maintenance Due Date Last Done Comments [...] Exam (Post-Transplant Patient) 03/29/2022 Influenza Vaccine (#1) 2024 3, 01/23/2022, 02/14/2021, Additional history exists Diabetes: Hemoglobin A1C 01/06/2025 025, 07/07/2024, 04/23/2024, Additional history exists Pneumococcal Vaccine: 50+ Ye ars (4 of 4 - PCV20 or PCV21) 05/03/2026 05/03/2021, 01/05/2020, 08/13/2010 Pneumococcal Vaccine: Peds ( 0 to 5 Years) and At-Risk Patients (6 to 49 Years) Discontinued 05/03/2021, 01/05/2020, 08/13/2010 Procedures Procedure Name Priority Date/Time Associated Diagnosis Comments CHEMISTRY Routine 12/13/2024 CHEMISTRY Routine 12/10/2024 IMMUNO CHEMISTRY Routine 12/08/2024 HEMATOLOGY Routine 12/08/2024 CHEMISTRY Routine 12/08/2024 CHEMISTRY Routine 12/08/2024 [facility] RESULTS Routine 12/06/2024 HD KINETICS Routine 12/06/2024 POST CHEMISTRY Routine 12/06/2024 CHEMISTRY Routine 12/06/2024 HEMATOLOGY Routine 12/01/2024 S[facility]RA IVET LAB RESULTS Routine 11/24/2024 HD KINETICS Routine 11/24/2024 POST CHEMISTRY Routine 11/24/2024 CHEMISTRY Routine 11/24/2024 HEMATOLOGY Routine 11/24/2024 HEMATOLOGY Routine 11/17/2024 HEMATOLOGY Routine 11/10/2024 CHEMISTRY Routine 11/05/2024 CHEMISTRY Routine 11/03/2024 IMMUNO CHEMISTRY Routine 11/03/2024 HEMATOLOGY Routine 11/03/2024 CHEMISTRY Routine 11/03/2024 SPECTRA IVET LAB RESULTS Routine 11/01/2024 HD KINETICS Routine 11/01/2024 POST CHEMISTRY Routine 11/01/2024 CHEMISTRY Routine 11/01/2024 HEMATOLOGY Routine 10/27/2024 S[facility]RA IVET LAB RESULTS Routine 10/25/2024 HD KINETICS Routine 10/25/2024 POST CHEMISTRY Routine 10/25/2024 CHEMISTRY Routine 10/25/2024 S[facility]RA [facility] LAB RESULTS Routine 10/20/2024 HD KINETICS Routine 10/20/2024 CHEMISTRY Routine 10/20/2024 POST CHEMISTRY Routine 10/20/2024 HEMATOLOGY Routine 10/20/2024 CHEMISTRY Routine 10/18/2024 HEMATOLOGY Routine 10/13/2024 CHEMISTRY Routine 10/11/2024 SPECIAL CHEMISTRY Routine 10/06/2024 CHEMISTRY Routine 10/06/2024 HEMATOLOGY Routine 10/06/2024 CHEMISTRY Routine 10/06/2024 IMMUNO CHEMISTRY Routine 10/06/2024 SPECIAL CHEMISTRY Routine 10/06/2024 CHEMISTRY Routine 10/04/2024 HEMATOLOGY Routine 09/29/2024 CHEMISTRY Routine 09/27/2024 SPECTRA IVET LAB RESULTS Routine 09/22/2024 HD KINETICS Routine 09/22/2024 POST CHEMISTRY Routine 09/22/2024 CHEMISTRY Routine 09/22/2024 HEMATOLOGY Routine 09/22/2024 CHEMISTRY Routine 09/20/2024 from Last 3 Months Results * (ABNORMAL) [facility] (12/13/2024) Only the most recent of20 resultswithin the time period is included. BUN 68(H) 6 - 19 mg/dL [facility] 12/13/2024 12/14/2024 9:0 7 AM EDT Narrative SPECTRAE - 12/14/2024 Unless otherwise specified, test(s) performed at: [facility], [address] [place] [id number] REIMBURSEMENT AUDITOR: Dwayne Fuentes M.D. For any questions, please call customer service at FREQUENCY:OTHER Resulting Agency Comment Specimen source: Serum Bernardo Doty MD LAB BLOOD ORDERABLES Final Resul t [facility] See order comments or contact performing lab Unknown, [place] * IMMUNO CHEMISTRY (12/08/2024) Only the most recent of3 resultswithin the time period is included. Pathologist [facility] Hep B Surface Ag Negative Negative [facility] 12/08/2024 12/09/2024 8:2 1 AM EDT Narrative DDNE - 12/09/2024 Unless otherwise specified, test(s) performed at: [facility] [address] REIMBURSEMENT AUDITOR: Dwanye Fuentes M.D. For any questions, please call customer service at FREQUENCY:MONTHLY Resulting Agency Comment Specimen source: Serum Srinivas Agrawal MD LAB BLOOD ORDERABLES Final Result Performing Organization Address [facility]/ZIP Co de Phone Number [facility] See order comments or contact performing lab Unknown, [place] * (ABNORMAL) HEMATOLOGY (12/08/2024) Only the most recent of12 resultswithin the time period is included. Pathologist [facility] Hemoglobin 10.8(L) 12.0 - 16.0 g/dL [facility] Hemoglobin x 3 32.4(L) 36.0 - 48.0 % [facility] 12/08/2024 12/09/2024 8:0 2 AM EDT Narrative DDNE - 12/09/2024 Unless otherwise specified, test(s) performed at: [facility], [address] [place] [id number] REIMBURSEMENT AUDITOR: Dwayne Fuentes M.D. For any questions, please call customer service at FREQUENCY:MONTHLY Resulting Agency Comment Specimen source: Blood Srinivas Agrawal MD LAB BLOOD ORDERABLES Final Result Performing Organization Address City/State/[facility] de Phone Number [facility] See order comments or contact performing lab Unknown, [place] * (ABNORMAL) HD KINETICS (12/06/2024) Only the most recent of6 resultswithin the time period is included. % Urea Reduction 62(L) 65 - 80 % [facility] 12/06/2024 12/07/2024 9:0 8 AM EDT Narrative Resulting Agency Comment Specimen source: Plasma us Bernardo Doty MD LAB BLOOD ORDERABLES Final Resul t Performing Organization Address [facility] de Phone Number [facility] See order comments or contact performing lab Unknown, [place] * (ABNORMAL) POST CHEMISTRY (12/06/2024) Only the most recent of6 resultswithin the time period is included. Pathologist [facility] BUN Post Dialysis 20(H) 6 - 19 mg/dL [facility] 12/06/2024 12/07/2024 9:0 8 AM EDT Narrative SPECTRAE - 12/07/2024 Unless otherwise specified, test(s) performed at: [facility], [address] [place] [address] REIMBURSEMENT AUDITOR: Dwayne Fuentes M.D. For any questions, please call customer service at FREQUENCY:OTHER Resulting Agency Comment Specimen source: Plasma us Bernardo Doty MD LAB BLOOD ORDERABLES Final Resul t Performing Organization Address [facility] de Phone Number [facility] See order comments or contact performing lab Unknown, [place] * [facility] Lab Results (12/06/2024) Only the most recent of6 resultswithin the time period is included. Pathologist [facility] WSTDKT/V 2.2 [facility] eKt/V ([place]) 1.04 [facility] nPCR_HD 0.74 [facility] PCR 49.80 [facility] spKt/V ([place]augirdas II) 1.21 [facility] eKt/V [facility] 1.03 [facility] e [place] spKt/V [facility] 1.21 [facility] eKdrt/V 1.03 [facility] eNPCR 0.70 [facility] 12/06/2024 12/06/2024 [facility] Ordering Provider LAB BLOOD ORDERABLES Final Result [facility] Contact Performing lab Unknown, [place] * (ABNORMAL) SPECIAL CHEMISTRY (10/06/2024) Only the most recent of2 resultswithin the time period is included. Hemoglobin A1C 6.1(H) 4.8 - 5.9 % [facility] 10/06/2024 10/07/2024 11: 36 AM EDT Narrative SPECTRAE - 10/08/2024 Unless otherwise specified, test(s) performed at: [facility], [address] [place] [address] REIMBURSEMENT AUDITOR: Dwayne Fuentes M.D. For any questions, please call customer service at FREQUENCY:MONTHLY Resulting Agency Comment Specimen source: Blood Srinivas Agrawal MD LAB BLOOD BANK TEST ORDERA BLES Final Result [facility] [employer] See order comments or contact performing lab Unknown, [place] from Last 3 Months Insurance [facility] Medicare Medicare [facility] Care Teams Generating Station Mechanic Relationship Specialty Start Date End Date Marita Wetzel DO [address] [place] [phone] PCP - General Family Medicine 11/14/22
--- OUTSIDE RECORDS SUMMARY | 2024-12-14 15:36 | XMS_ITS | Encounter Summary ---
Author Organization [facility] Address [address] [place] [address] Care Team Providers Care Database Consultant Name Role Phone Marita Wetzel Primary Care Provider [phone] Encounter Details Date Type Department Care Team (Late st Contact Info) Description 02/25/2024 Lab Requisition [facility] - Main Lab [address] [facility] [place] [address] Catalina Burr MD [address] [place] [address] Chronic embolism and thrombosis of unspecified vein; [...] Travel phlebotomy fee (02/25/2024 6:30 AM EST) [facility] TRAVEL PHLEBOTOMY FEE Completed 02/25/2024 11:01 AM EST [facility] Blood Venous blood specimen / Unknown Venipuncture / Unknown 02/25/2024 6:30 AM EST 02/25/2024 10:25 AM EST Catalina Burr MD LAB BLOOD ORDERABLES Final Resul t Performing Organization Address [facility] de Phone Number [facility]) [facility] [address] [place] [address], * (ABNORMAL) Tacrolimus level (02/25/2024 6:30 AM EST) Tacrolimus Level 3.8(L) 5.0 - 20.0 ng/mL 02/28/2024 12:37 PM EST [facility] Comment: Additional Information: Toxic Level > [...] and the performance characteristics determined by [facility]. This confirmation testing has not been cleared or approved by the FDA. The laboratory is regulated under CLIA as qualified to perform high-complexity testing. This test is used for patient testing purposes. It should not be regarded as investigational or for research. Test performed at [facility], [address], [place], [place] [id number] Ashtyn Leigh MD, PhD - [employer] Att[employer] Blood Venous blood specimen / Unknown Venipuncture / Unknown 02/25/2024 6:30 AM EST 02/25/2024 10:25 AM EST Catalina Burr MD LAB BLOOD ORDERABLES Final Resul t Performing Organization Address City/[facility]/ZIP Co de Phone Number [facility] [address] [place], [place] [id number] documented in this encounter Visit Diagnoses Diagnosis Chronic embolism and thrombosis of unspecified vein Acute kidney failure, unspecified (CMS/[facility] V24) Acute kidney failure, unspecified documented in this encounter Care Teams Database Consultant Relationship Specialty Start Date End Date Marita Wetzel DO [address] [place] [address] PCP - General 01/09/23 documented as of this encounter
--- OUTSIDE RECORDS SUMMARY | 2024-12-14 15:36 | XMS_ITS | Encounter Summary ---
Author Organization [facility] Address [address] [place] [address] Care Team Providers Care Pile Driving Supervisor Name Role Phone Marita Wetzel Primary Care Provider +1- [phone] Encounter Details Date Type Department Care Team (Late st Contact Info) Description 03/01/2024 Lab Requisition [facility] - Main Lab 299 [facility] [place] [address] Catalina Burr MD [address] [place], [place] [id number] End stage renal disease (CMS/HCC V24, CMS/HCC [...] (ABNORMAL) Ferritin (03/01/2024 6:56 AM EST) Pathologist [facility] Ferritin 2,736(H) 8 - 252 ng/mL LAB CHEMISTRY METHOD 03/01/2024 11:[address] [facility] Blood Venous blood specimen / Unknown Venipuncture / Unknown 03/01/2024 6:56 AM EST 03/01/2024 9:07 AM EST Catalina Burr MD LAB BLOOD ORDERABLES Final Resul t Performing Organization Address City/[facility]/ZIP Co de Phone Number [facility] [address] [place] [address], [place] [phone] * (ABNORMAL) Iron (03/01/2024 6:56 AM EST) [facility] Iron 29(L) 40 - 150 mcg/dL LAB CHEMISTRY METHOD 03/01/2024 11:[address] [facility] Blood Venous blood specimen / Unknown Venipuncture / Unknown 03/01/2024 6:56 AM EST 03/01/2024 9:07 AM EST us Catalina Burr MD LAB BLOOD ORDERABLES Final Resul t [facility] [address] [place] [address], [place] [phone] * Tacrolimus level (03/01/2024 6:56 AM EST) [facility] Tacrolimus Level 5.2 5.0 - 20.0 ng/mL 03/04/2024 12:28 PM EST [facility] Comment: Additional Information: Toxic [...] Test performed at [facility], [address] , [place] [address] Ashtyn Leigh MD, PhD - Engagement Manager Blood Venous blood specimen / Unknown Venipuncture / Unknown 03/01/2024 6:56 AM EST 03/01/2024 9:07 AM EST us Catalina Burr MD LAB BLOOD ORDERABLES Final Resul t [facility] [address] [place] [address] * (ABNORMAL) Renal function panel (03/01/2024 6:56 AM EST) Sodium 140 133 - 145 mmol/L LAB CHEMISTRY METHOD 03/01/2024 11:04 AM [facility] Potassium 3.4(L) 3.5 - 5.5 mmol/L LAB CHEMISTRY METHOD 03/01/2024 11:04 AM [facility] Chloride 107 96 - 110 mmol/L LAB CHEMISTRY METHOD 03/01/2024 11:04 AM [facility] CO2 24 21 - 32 mmol/L LAB CHEMISTRY METHOD 03/01/2024 11:04 AM [facility] Anion Gap 9 3 - 11 LAB CHEMISTRY METHOD 03/01/2024 11:04 AM [facility] Glucose 107(H) 70 - 100 mg/dL LAB CHEMISTRY METHOD 03/01/2024 11:04 AM [facility] BUN 26(H) 5 - 25 mg/dL LAB CHEMISTRY METHOD 03/01/2024 11:04 AM [facility] Creatinine 2.88(H) 0.50 - 1.10 mg/dL LAB CHEMISTRY METHOD 03/01/2024 11:04 AM [facility] eGFR 18(L) >=60 mL/min/1. 73m2 LAB CHEMISTRY METHOD 03/01/2024 11:04 AM [facility] Comment:Calculation based on the Chronic Kidney Disease Epidemiology Collaboration (CKD-EPI) equation refit without adjustment for race. BUN/Creatinine Ratio 9.0 LAB CHEMISTRY METHOD 03/01/2024 11:04 AM [facility] Albumin 2.3(L) 3.2 - 5.0 g/dL LAB CHEMISTRY METHOD 03/01/2024 11:04 AM [facility] Calcium 8.9 8.5 - 10.5 mg/dL LAB CHEMISTRY METHOD 03/01/2024 11:04 AM [facility] Phosphorus 1.9(L) 2.5 - 4.5 mg/dL LAB CHEMISTRY METHOD 03/01/2024 11:04 AM [facility] Blood Venous blood specimen / Unknown Venipuncture / Unknown 03/01/2024 6:56 AM EST 03/01/2024 9:07 AM EST us Catalina Burr MD LAB BLOOD ORDERABLES Final Resul t [facility] [address] [place] [address], * (ABNORMAL) Complete blood count (03/01/2024 6:56 AM EST) [facility] WBC 10.2 4.8 - 10.8 K/mcL LAB HEMETOLOGY METHOD 03/01/2024 10:46 AM [facility] RBC 2.70(L) 3.80 - 4.80 M/mcL LAB HEMETOLOGY METHOD 03/01/2024 10:46 AM [facility] Hemoglobin 7.5(L) 11.5 - 16.0 g/dL LAB HEMETOLOGY METHOD 03/01/2024 10:46 AM [facility] Hematocrit 26.1(L) 35.0 - 47.0 % LAB HEMETOLOGY METHOD 03/01/2024 10:46 AM [facility] MCV 97.8 79.0 - 98.0 FL LAB HEMETOLOGY METHOD 03/01/2024 10:46 AM [facility] MCH 28.1 27.0 - 32.0 pcg LAB HEMETOLOGY METHOD 03/01/2024 10:46 AM [facility] MCHC 28.7(L) 32.0 - 37.0 g/dL LAB HEMETOLOGY METHOD 03/01/2024 10:46 AM [facility] RDW 16.7(H) 11.0 - 15.0 % LAB HEMETOLOGY METHOD 03/01/2024 10:46 AM [facility] Platelets 235 130 - 400 K/mcL LAB HEMETOLOGY METHOD 03/01/2024 10:46 AM [facility] MPV 10.8 7.0 - 11.0 FL LAB HEMETOLOGY METHOD 03/01/2024 10:46 AM [facility] NRBC 0.0 <1.0 % LAB HEMETOLOGY METHOD 03/01/2024 10:46 AM [facility] NRBC Absolute 0.00 <0.10 K/mcL LAB HEMETOLOGY METHOD 03/01/2024 10:[address] [facility] Blood Venous blood specimen / Unknown Venipuncture / Unknown 03/01/2024 6:56 AM EST 03/01/2024 9:07 AM EST us Catalina Burr MD LAB BLOOD ORDERABLES Final Resul t [facility] [address] [place] [address], documented in this encounter Visit Diagnoses Diagnosis End stage renal disease ([facility] V24, [facility] V28) End stage renal disease Type 2 diabetes mellitus without complications ([facility] V24, [facility] V28) documented in this encounter Care Teams Pile Driving Supervisor Relationship Specialty Start Date End Date Marita Wetzel DO [address] [place] [address] PCP - General 01/09/23 documented as of this encounter
--- OUTSIDE RECORDS SUMMARY | 2024-12-14 15:36 | XMS_ITS | Encounter Summary ---
Author Organization [facility] Address [address] [place] [address] Care Team Providers Care Respooler Name Role Phone Marita Wetzel Primary Care Provider +1- [phone] Encounter Details Date Type Department Care Team (Late st Contact Info) Description 03/30/2024 Lab Requisition [facility] - Main Lab 299 [facility] [place] [address] Catalina Burr MD [address] [place] [address] Chronic embolism and thrombosis of unspecified vein; [...] LAB CHEMISTRY METHOD 03/31/2024 12:06 PM EST [facility] Blood Venous blood specimen / Unknown Venipuncture / Unknown 03/31/2024 9:23 AM EST 03/31/2024 11:25 AM EST Catalina Burr MD LAB BLOOD ORDERABLES Final Resul t Performing Organization Address [facility]/ZIP Co de Phone Number [facility] [address] [place] [address], [place] [phone] * (ABNORMAL) Ferritin (03/31/2024 9:23 AM EST) Ferritin 6,203(H) 8 - 252 ng/mL LAB CHEMISTRY METHOD 03/31/2024 12:10 PM EST [facility] Blood Venous blood specimen / Unknown Venipuncture / Unknown 03/31/2024 9:23 AM EST 03/31/2024 11:25 AM EST Catalina Burr MD LAB BLOOD ORDERABLES Final Resul t Performing Organization Address [facility]/ZIP Co de Phone Number [facility] [address] [place] [address], [place] [phone] documented in this encounter Visit Diagnoses Diagnosis Chronic embolism and thrombosis of unspecified vein Acute kidney failure, unspecified (CMS/HCC V24) Acute kidney failure, unspecified documented in this encounter Care Teams Respooler Relationship Specialty Start Date End Date Marita Wetzel DO [address] [place] [address] PCP - General 01/09/23 documented as of this encounter
--- OUTSIDE RECORDS SUMMARY | 2024-12-14 15:36 | XMS_ITS | Encounter Summary ---
Author Organization [facility] Address [address] [place] [address] Care Team Providers Care Process Server Name Role Phone Marita Wetzel Primary Care Provider +1- [phone] Encounter Details Date Type Department Care Team (Late st Contact Info) Description 04/17/[address] [facility] - Main Lab 299 [facility] [place] [phone] Marily Gordillo MD [address] [place] [address] Chronic embolism and thrombosis of [...] - 20.0 ng/mL 04/22/2024 11:22 AM EST [facility] Comment: Additional Information: Toxic Level > [...] and the performance characteristics determined by [facility]. This confirmation testing has not been cleared or approved by the FDA. The laboratory is regulated under CLIA as qualified to perform high-complexity testing. This test is used for patient testing purposes. It should not be regarded as investigational or for research. Test performed at [facility], [address], [place] [address] Ashtyn Leigh MD, PhD - Web Feeder Blood Venous blood specimen / Unknown Venipuncture / Unknown 04/19/2024 6:21 AM EST 04/19/2024 8:33 AM EST us Marily Gordillo MD LAB BLOOD ORDERABLES Final Resul t [facility] [address] [place] [address] * (ABNORMAL) Renal function panel (04/19/2024 6:21 AM EST) Pathologist [facility] Sodium 144 133 - 145 mmol/L LAB CHEMISTRY METHOD 04/19/2024 9:42 AM EST [facility] Potassium 3.3(L) 3.5 - 5.5 mmol/L LAB CHEMISTRY METHOD 04/19/2024 9:42 AM EST [facility] Chloride 114(H) 96 - 110 mmol/L LAB CHEMISTRY METHOD 04/19/2024 9:42 AM EST [facility] CO2 22 21 - 32 mmol/L LAB CHEMISTRY METHOD 04/19/2024 9:42 AM [facility] Anion Gap 8 3 - 11 LAB CHEMISTRY METHOD 04/19/2024 9:42 AM [facility] Glucose 177(H) 70 - 100 mg/dL LAB CHEMISTRY METHOD 04/19/2024 9:42 AM [facility] BUN 42(H) 5 - 25 mg/dL LAB CHEMISTRY METHOD 04/19/2024 9:42 AM [facility] Creatinine 3.65(H) 0.50 - 1.10 mg/dL LAB CHEMISTRY METHOD 04/19/2024 9:42 AM [facility] eGFR 13(L) >=60 mL/min/1. 73m2 LAB CHEMISTRY METHOD 04/19/2024 9:42 AM [facility] Comment:Calculation based on the Chronic Kidney Disease Epidemiology Collaboration (CKD-EPI) equation refit without adjustment for race. BUN/Creatinine Ratio 11.5 LAB CHEMISTRY METHOD 04/19/2024 9:42 AM [facility] Albumin 2.0(L) 3.2 - 5.0 g/dL LAB CHEMISTRY METHOD 04/19/2024 9:42 AM [facility] Calcium 8.5 8.5 - 10.5 mg/dL LAB CHEMISTRY METHOD 04/19/2024 9:42 AM [facility] Phosphorus 2.6 2.5 - 4.5 mg/dL LAB CHEMISTRY METHOD 04/19/2024 9:42 AM [facility] Blood Venous blood specimen / Unknown Venipuncture / Unknown 04/19/2024 6:21 AM EST 04/19/2024 8:33 AM EST us Marily Gordillo MD LAB BLOOD ORDERABLES Final Resul t [facility] [address] [place] [address], * (ABNORMAL) Complete blood count (04/19/2024 6:21 AM EST) [facility] WBC 12.0(H) 4.8 - 10.8 K/mcL LAB HEMETOLOGY METHOD 04/19/2024 9:26 AM [facility] RBC 2.80(L) 3.80 - 4.80 M/mcL LAB HEMETOLOGY METHOD 04/19/2024 9:26 AM [facility] Hemoglobin 7.6(L) 11.5 - 16.0 g/dL LAB HEMETOLOGY METHOD 04/19/2024 9:26 AM [facility] Hematocrit 27.3(L) 35.0 - 47.0 % LAB HEMETOLOGY METHOD 04/19/2024 9:26 AM [facility] MCV 98.2(H) 79.0 - 98.0 FL LAB HEMETOLOGY METHOD 04/19/2024 9:26 AM [facility] MCH 27.3 27.0 - 32.0 pcg LAB HEMETOLOGY METHOD 04/19/2024 9:26 AM [facility] MCHC 27.8(L) 32.0 - 37.0 g/dL LAB HEMETOLOGY METHOD 04/19/2024 9:26 AM [facility] RDW 16.6(H) 11.0 - 15.0 % LAB HEMETOLOGY METHOD 04/19/2024 9:26 AM [facility] Platelets 230 130 - 400 K/mcL LAB HEMETOLOGY METHOD 04/19/2024 9:26 AM [facility] MPV 10.9 7.0 - 11.0 FL LAB HEMETOLOGY METHOD 04/19/2024 9:26 AM [facility] NRBC 0.0 <1.0 % LAB HEMETOLOGY METHOD 04/19/2024 9:26 AM [facility] NRBC Absolute 0.00 <0.10 K/mcL LAB HEMETOLOGY METHOD 04/19/2024 9:26 AM EST [facility] Blood Venous blood specimen / Unknown Venipuncture / Unknown 04/19/2024 6:21 AM EST 04/19/2024 8:33 AM EST us Marily Gordillo MD LAB BLOOD ORDERABLES Final Resul t [facility] [address] [place] [address], documented in this encounter Visit Diagnoses Diagnosis Chronic embolism and thrombosis of unspecified vein Acute kidney failure, unspecified (CMS/HCC V24) Acute kidney failure, unspecified documented in this encounter Care Teams Process Server Relationship Specialty Start Date End Date Marita Wetzel DO [address] [place] [address] PCP - General 01/09/23 documented as of this encounter
--- OUTSIDE RECORDS SUMMARY | 2024-12-14 15:36 | XMS_ITS | Encounter Summary ---
Author Organization [facility] Address [address] [place] [address] Care Team Providers Care Director Packaging Name Role Phone Marita Wetzel DO Primary Care Provider +1- [phone] Encounter Details Date Type Department Care Team (Late st Contact Info) Description 05/15/2024 Lab Requisition [facility] - Main Lab 299 [facility] [employer] [place] [phone] Marily Gordillo MD [address] [place] [phone] Chronic embolism and thrombosis of unspecified vein; [...] documented in this encounter Care Teams Director Packaging Relationship Specialty Start Date End Date Marita Wetzel DO [address] [place], [place] PCP - General 01/09/23 documented as of this encounter
--- OUTSIDE RECORDS SUMMARY | 2024-12-14 15:36 | XMS_ITS | Encounter Summary ---
Author Organization [facility] Address [address] [place] [address] Care Team Providers Care Metrologist Name Role Phone Marita Wetzel Primary Care Provider +1- [phone] Encounter Details Date Type Department Care Team (Late st Contact Info) Description 05/07/2024 Lab Requisition [facility] - Main Lab [address] [place] [phone] Marily Gordillo MD [address] [place] [address] Chronic embolism and thrombosis of [...] LAB CHEMISTRY METHOD 05/10/2024 11:45 AM EST [facility] Potassium 3.8 3.5 [...] Final Resul t Performing Organization Address City/[facility]/ZIP Co de Phone Number [facility] [address] [place] [address], [place] [phone] * Tacrolimus level (05/10/2024 5:50 AM EST) [...] or for research. Test performed at [facility], [address] , [place], [place] [id number] Ashtyn Leigh MD, PhD - Mechanical Service Technician Blood Venous blood specimen / Unknown Venipuncture / Unknown 05/10/2024 5:50 AM EST 05/10/2024 9:58 AM EST Marily Gordillo MD LAB BLOOD ORDERABLES Final Resul t [facility] [address] [place] [address] documented in this encounter Visit Diagnoses Diagnosis Chronic embolism and thrombosis of unspecified vein Acute kidney failure, unspecified (CMS/[facility] V24) Acute kidney failure, unspecified documented in this encounter Care Teams Metrologist Relationship Specialty Start Date End Date Marita Wetzel DO [address] [place] [address] PCP - General 01/09/23 documented as of this encounter
--- OUTSIDE RECORDS SUMMARY | 2024-12-14 15:36 | XMS_ITS | Encounter Summary ---
Author Organization [facility] Address [address] [place] [address] Care Team Providers Care Publicity Person Name Role Phone Marita Wetzel Primary Care Provider +1- [phone] Encounter Details Date Type Department Care Team (Late st Contact Info) Description 04/17/2024 Lab Requisition [facility] - Main Lab 299 [facility] [place] [address] Catalina Burr MD [address] [place] [address] End stage renal disease (CMS/HCC V24, CMS/HCC [...] - 20.0 ng/mL 04/19/2024 11:04 AM EST [facility] Comment: Additional Information: Toxic Level > [...] for research. Test performed at [facility], [address] , [place] [address] Ashtyn Leigh MD, PhD - Window Framer Blood Venous blood specimen / Unknown Venipuncture / Unknown 04/17/2024 5:33 AM EST 04/17/2024 9:33 AM EST us Catalina Burr MD LAB BLOOD ORDERABLES Final Resul t [facility] [address] [place] [address] * (ABNORMAL) Reticulocyte count (04/17/2024 5:33 AM EST) Retic Ct Abs 0.050 0.030 - 0.090 M/mcL LAB HEMETOLOGY METHOD 04/17/2024 10:42 AM EST [facility] Retic Ct Pct 1.8(H) 0.7 - 1.7 % LAB HEMETOLOGY METHOD 04/17/2024 10:42 AM EST [facility] Immature Retic Fract [...] Resul t [facility] [address] [place] [address], [place] [phone] * (ABNORMAL) Comprehensive metabolic panel (04/17/2024 5:33 [...] [facility] Comment:Calculation based on the Chronic Kidney Disease Epidemiology Collaboration (CKD-EPI) equation refit without adjustment for race. BUN/Creatinine Ratio 12.9 LAB [...] Resul t [facility] [address] [place] [address], * (ABNORMAL) Complete blood count (04/17/2024 5:33 AM EST) [facility] WBC 9.3 4.8 - 10.8 K/mcL LAB [...] 04/17/2024 10:42 AM [facility] MCHC 27.4(L) 32.0 - [...] LAB HEMETOLOGY METHOD 04/17/2024 10:42 AM EST [facility] NRBC Absolute 0.00 <0.10 K/mcL LAB HEMETOLOGY METHOD 04/17/2024 10:42 AM EST [facility] Blood Venous blood specimen / Unknown Venipuncture / Unknown 04/17/2024 5:33 AM EST 04/17/2024 9:33 AM EST us Catalina Brur MD LAB BLOOD ORDERABLES Final Resul t [facility] [address] [place] [address], documented in this encounter Visit Diagnoses Diagnosis End stage renal disease (CMS/HCC V24, CMS/HCC V28) End stage renal disease Anemia, unspecified documented in this encounter Care Teams Publicity Person Relationship Specialty Start Date End Date Marita Wetzel DO [address] [place] [address] PCP - General 01/09/23 documented as of this encounter
== END 2024-12-14 08:16 | disposition home or self-care (01) ==
LOC: HO.HOSX 08:15
PROVIDERS: Visit Provider Physician Assistant
DX: Z13.89 Encounter for screening for other disorder (principal)

== ENCOUNTER 2024-12-16 10:21 | Outpatient (AMB) | payer MEDICARE, OTHER, SELFPAY ==
--- OUTSIDE RECORDS SUMMARY | 2024-07-02 06:30 | XMS_ITS ---
Author Organization [facility] Address [address] [place] [address] Care Team Providers Care Track Subway Repair Supervisor Name Role Phone Jah Miryam Unavailable [phone] Encounters Encounter Location Date Provider Diagnosis [address] [address] 07/02/2024 Miryam Tyson Plan Of Treatment No Information Progress Notes * Farhan BEARDaDOB:1960 (64 yo F)Acc No.[id number]:07/02/2024 Progress Notes Patient: Alix SHEARER Provider: Esvin Tyson DPM :1960 A ge:64 Y S ex:Female Date:07/02/2024 Address:[address] [place], [place] [id number] Subjective: * Chief Complaints: * * Medical [...] 0 07/02/2024 Generated for Michael santos/Chloe/Oraliaitting on: 0 12/16/2024 07:59 AM EDT
[2024-12-16 10:24] VITALS: BP 160/74; PULSE 63; O2SAT 100; BMI 25.5
--- NOTE | 2024-12-16 10:24 | A.OFFVIS_ITS ---
Vital Signs 12/16/24 10:24 Height 5 ft 7 in Weight 163 lb 2.273 oz BMI 25.5 BP 160/74 H Blood Pressure Location Rt brachial Position Sitting Pulse 63 Pulse Source Pulse Oximeter Pulse Oximetry (%) 100 Oxygen Delivery Method Room Air Intake Visit Reasons: Pleural effusion/Pneumonia Hospital Pharmacy Technician Required: No Allergies codeine (CODEINE) Allergy (Intermediate, Verified 12/16/24 10:30) Hives and pruritus oxycodone (OXYCODONE) Allergy (Intermediate, Verified 12/16/24 10:30) HIVES HPI Comments Details: 63-year-old lady, nonsmoker, with underlying end-stage renal disease status post DDKT complicated by chronic rejection, now with CKD 4, diastolic heart failure, diabetes mellitus, CAD hospitalized on 04/07/2024 with progressive dyspnea of approximately 2 week duration. On initial evaluation patient not to have right- sided loculated pleural effusions and consolidative process in the right lower lobe. She had right-sided chest tube placed in with drainage of approximately 13 cc so far. Pleural studies are pending. Patient does report improved dyspnea after placement of chest tube. 08/31/2024 the patient is here for a pulmonary hospital follow-up visit. 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 She has been following closely with Infectious Disease. Has had multiple chest x-rays post hospitalization. Seems like there is some interval improvement but still abnormal specially with airspace disease in the right hemithorax. Will going to go ahead and request for a CT scan of the chest. Overall the blood work is reassuring. Her IgG levels are normal. She does have slight IgM deficiency that may predispose her to immunocompromised and conditions and opportunistic infections. She will continue to take the antimicrobial therapies as per Infectious Disease. 12/16/2024 the patient is here for pulmonary follow-up visit. Overall the patient has been doing well. Shear breathing is been okay although she has been coughing more she has also had some chest tightness. There is a family history asthma in the family. The patient also underwent a CT scan of the abdomen which I personally reviewed. Some lung cuts with some densities. Will have to wait for the final formal CAT scan of the chest to better address the question of persistent disease. In the meantime the patient does have some slight wheezing on exam and diminished expiratory phase therefore will start her on Advair HFA. The patient follow-up in 4-6 months if she has any issues prior to this she will call for an earlier assessment. 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 Mother CHF (congestive heart failure) Social History Household Members: Spouse Housing: House Do you presently have visiting nurse or other home services: Yes Alcohol intake: never Comment: patient is bedbound at this time Patient Tobacco Use Status: Never used Tobacco Advance Directives Date on File: 04/07/24 service: Yes Review of Systems Const Denies chills, Denies daytime sleepiness, Denies fatigue, Denies fever(s), Denies poor appetite, Denies snoring, Denies stops breathing during sleep, Denies weakness, Denies weight gain and Denies weight loss Eyes Denies loss of vision ENT Denies dizziness and Denies hearing loss Card Denies chest pain, Denies irregular heart rhythm, Denies claudication, Denies leg edema, Denies lightheadedness, Denies palpitations, Reports dyspnea on exertion and Denies orthopnea Resp Reports cough, Denies excessive phlegm production, Reports dyspnea on exertion, Denies snoring and Denies wheezing GI Denies abdominal pain, Denies hematochezia, Denies change in bowel habits, Denies nausea and Denies vomiting Denies urinary frequency and Denies dysuria Musc Reports abnormal gait, Denies arthralgias, Denies muscle weakness, Denies numbn ess and Denies other Skin/Breast Denies nail changes and Denies rash Neuro Denies Abnormal speech present, Reports abnormal gait, Denies dizziness, Denies loss of vision, Denies memory loss, Denies numbness and Denies weakness Psych Denies depression and Denies memory loss Endo Denies fatigue and Denies palpitations Julian/Lymph Denies easy bruising Aller/Immun Denies wheezing Physical Exam Vital Signs: Last Vital Signs Pulse 63 12/16/24 10:24 BP 160/74 H 12/16/24 10:24 Pulse Ox 100 12/16/24 10:24 Oxygen Delivery Method Room Air 12/16/24 10:24 BMI result Body Mass Index 25.5 Last Vital Signs Temp 98.4 F 06/03/24 08:00 Pulse 62 06/03/24 08:00 Resp 18 06/03/24 08:00 BP 153/58 H 06/03/24 08:00 Pulse Ox 94 06/03/24 08:00 O2 Del Method Room Air 06/03/24 08:00 BMI result Body Mass Index 17.5 Const General: no acute distress Orientation/consciousness: patient oriented x3 Eyes EOM: EOMs intact bilaterally Neck Neck: Yes supple Resp Auscultation: wheezes and diminished lung sounds Cardio Rate: regular rate GI Palpation (GI): Soft to palpation Neuro General: patient oriented x3 Speech: No Abnormal speech present Assessment & Plan Assessment & Plan (1) Lung mass: Code(s): R91.8 - Other nonspecific abnormal finding of lung field Category: Medical (2) Disseminated nocardiosis: Comment: Doing well Possibly immodeficiency Code(s): A43.9 - Nocardiosis, unspecified Category: Medical (3) Pneumonia: Code(s): J18.9 - Pneumonia, unspecified organism Category: Medical Qualifiers: Laterality: bilateral Lung location: unspecified part of lung Pneumonia type: due to unspecified organism Qualified Code(s): J18.9 - Pneumonia, unspecified organism (4) Pleural effusion, right: Code(s): J90 - Pleural effusion, not elsewhere classified Category: Medical Plan continue antimicrobial therapy as per ID CT chest, not done yet. If not scheduled, then I will order start Advair F/U 4 months Medications: New fluticasone propion-salmeterol 115-21 mcg/actuation (Advair HFA) 2 puffs inhalation Q12H 12 grams 11RF 30 days Coding Level of Care Code Est Pt Level 4 (41667) Complex EM visit Add On G2211 Diagnoses Lung mass R91.8 Disseminated nocardiosis A43.9 Pneumonia of both lungs due to infectious organism, unspecified part of lung J18.9 Laterality: bilateral Lung location: unspecified part of lung Pneumonia type: due to unspecified organism Pleural effusion, right J90 Time Spent (min) 17
--- OUTSIDE RECORDS SUMMARY | 2024-12-16 11:40 | XMS_ITS | Encounter Summary ---
Author Organization [employer] Address [address] [facility] 7[address] [place] [address] Care Team Providers Care Records Technician Name Role Phone Marita Wetzel DO Primary Care Provider + [phone] Reason for Visit * Reason Onset Date Comments CGM PA 12/09/2024 Encounter Details Date Type Department Care Team (Late st Contact Info) Description 12/09/2024 Refill [facility] MEDICINE [address] [place] [address] Faye Batista RN [address] [place] [address] Type 2 diabetes mellitus with stage 3b chronic kidney disease, with long-term current use of insulin ([facility]) Social History Tobacco Use Types Packs/Day Years [...] Medicare PA form completed and faxed to [facility] pharmacy. Patient's preferred pharmacy: [facility][id number] - [place], [place] - [address] [facility] [address] [facility] [address] [facility][id number] - [place], [place] - [address] [facility] [address] [facility] [address] [facility] - [place], [place] - [address] [facility] [address] [facility] [phone] CGM PA should be approved by: 12/21/24 Pt. Has been on CGM in the past so may or may not need teaching appointment. Will ask pt. Once supplies are approved. Will call pharmacy in 1 week to check on status of PA. * Telephone Encounter - Faye Batista RN - 12/09/2024 3:19 PM EDT Due to medicare insurance, please resend rxs to [facility] pharmacy. Please task back when done, thanks! documented in this encounter Plan of Treatment Upcoming Encounters Date Type Department Care Team (Late st Contact Info) Description 12/27/2024 10:15 AM EDT Office Visit [facility] MED[facility]INE [address] [place] [address] Marita Wetzel DO [address] [place] [address] documented as of this encounter Goals Goal [...] disease, with long-term current use of insulin ([facility]) documented in this encounter Additional Health Concerns Assessment Noted Time PHQ-9 Depression Total Score: 0 10/09/19 23 9:31 AM EDT documented as of this encounter Care Teams Records Technician Relationship Specialty Start Date End Date Marita Wetzel DO [address] [place] [address] PCP - General Family Medicine 04/21/18 [facility] 05/22/24 documented as of this encounter
--- OUTSIDE RECORDS SUMMARY | 2024-12-16 11:40 | XMS_ITS | Clinical Summary ---
Author Organization [facility] Address [address] [facility] [address] [place] [phone] Phone Care Team Providers Care Customer Experience Analyst Name Role Phone Bernardo Doty MD Unavailable Marita Wetzel DO Primary Care Provider [phone] Allergies Active Allergy Reactions Criticality Noted Date [...] mg by mouth daily. 08/26/2021 Active cloNIDine (CITITVGZ-FLS-5 ) 0.2 mg/[address] 1 patch [...] EDT Hospital Encounter [facility] Specimen Processing [address] [place] [address] Srinivas Agrawal MD Discharge Disposition: Home or Self Care 09/27/2024 Transcribe Orders [facility] Specimen Processing [address] [place] [address] Srinivas Agrawal MD Screening for unspecified condition (Primary Dx) 09/15/2024 11:54 AM EDT - 09/15/2024 11:59 PM EDT Hospital Encounter [facility] Specimen Processing [address] [place] [address] Bernardo Doty MD Discharge Disposition: Home or Self Care 09/15/2024 Transcribe Orders [facility] Specimen Processing [address] [place] [address] Bernardo Doty MD Screening for unspecified condition (Primary Dx) 09/15/2024 Transcribe Orders [facility] Specimen Processing [address] [place] [address] Bernardo Doty MD Iron deficiency anemia, unspecified [...] PANEL 11/26/2022 11/26/2021 HEMOGLOBIN A1C 02/08/2023 08/09/2022, 04/1 04/2022, 07/18/2022, Additional history exists COVID-19 VACCINE (2023- season) 2023 02/01/2022, 06/22/2020, 05/25/2020 MAMMOGRAM 07/11/2024 07/11/2022, 06/20, 07/09/2021, Additional history exists INFLUENZA VACCINE (#1) 2024 , 02/14/2021, 01/28/2020, Additional history exists CREATININE LEVEL 05/03/2025 05/03/2024, [...] included. HGB 7.3(L) 12.0 - 16.0 g/dL [facility] Blood 09/27/2024 5:44 PM EDT 09/27/2024 5:48 PM EDT Srinivas Agrawal MD LAB BLOOD ORDERABLES Fin al Result [facility] [address] [place] [address] * (ABNORMAL) Comprehensive metabolic panel (05/03/2024 3:27 PM EST) SODIUM 135 133 - 146 mmol/L [facility] POTASSIUM 5.9(H) 3.3 - 5.1 mmol/L [facility] CHLORIDE 96 96 - 108 mmol/L [facility] CO2 27 21 - 35 mmol/L [facility] BUN 45(H) 6 - 19 mg/dL [facility] CREATININE 3.40(H) 0.5 - 1.5 mg/dL [facility] GLUCOSE 186(H) 70 - 99 mg/dL [facility] ALBUMIN 2.6(L) 3.9 - 4.8 g/dL [facility] TOTAL PROTEIN 6.2(L) 6.5 - 8.0 g/dL [facility] CALCIUM 9.0 8.4 - 10.3 mg/dL [facility] ALKALINE PHOSPHATASE 74 39 - 117 U/L [facility] TOTAL BILIRUBIN <0.2 0.0 - 1.2 mg/dL [facility] AST 9 0 - 37 U/L [facility] ALT 7 0 - 40 U/L [facility] GLOBULIN 3.6 1 - 4.8 g/dL [facility] EGFR 15(L) >59 mL/min/1.7 3m2 [facility] Comment:Estimated glomerular filtration rate calculated using the CKD-EPI refit equation. ANION GAP 18 10 - 20 mmol/L [facility] Blood 05/03/2024 3:27 PM EST 05/03/2024 8:39 PM EST us Twila CRUZ LAB BLOOD ORDERABLES Final Resu lt [address] [address] * Hepatitis C antibody, qualitative (11/26/2021 4:32 PM EDT) Pathologist [facility] HCV Nonreactive Nonreactive [facility] Comment: 11/26/2021 4:32 PM EDT 11/26/2021 5:00 PM EDT us Manny Addison MD, PhD LAB BLOOD ORDERABLES Final Result Performing Organization Address [facility] Co de Phone Number [address] [address] * (ABNORMAL) Hemoglobin A1c (11/26/2021 4:32 PM EDT) HEMOGLOBIN A1C 7.8(H) 4.2 - 5.6 % [facility] Comment: HbA1c levels [...] BLOOD ORDERABLES Final Result Performing Organization Address [facility] de Phone Number [address] [address] * (ABNORMAL) Lipid panel (11/26/2021 4:32 PM EDT) CHOLESTEROL 157 <200 mg/dL [facility] TRIGLYCERIDES 214(H) 35 - 150 mg/dL [facility] HDL 26(L) 40 - 80 mg/dL [facility] CALCULATED LDL 88 50 - 129 mg/dL [facility] VLDL 43(H) <31 mg/dL [facility] CARDIAC RISK RATIO 6.0(H) 0.0 - 4.0 [facility] 11/26/2021 4:32 PM EDT 11/26/2021 5:00 PM EDT Manny Addison MD, PhD LAB BLOOD ORDERABLES Final Result [facility] [address] [place] [address] from Last 3 Months or Most Recently Relevant to Health Maintenance Insurance MEDICARE PART A & B [employer] MEDICARE SUPPLEMENT MEDICARE PART A & B [employer] MEDICARE SUPPLEMENT MEDICARE PART A & B [facility] [employer] [facility] MEDICARE SUPPLEMENT MEDICARE PART A & B [employer] MEDICARE SUPPLEMENT MEDICARE PART A & B [employer] MEDICARE SUPPLEMENT MEDICARE PART A & B [facility] MEDICARE SUPPLEMENT MEDICARE PART A & B Care Teams Customer Experience Analyst Relationship Specialty Start Date End Date Marita Wetzel DO [address] [place] [address] PCP - General Family Medicine 03/28/22 Bernardo Doty MD [address] [address] [email or web address] Nephrology 11/13/21 Additional Source Comments The information contained in this document represents components of the legal health record. It is not the complete legal health record.[facility]
--- OUTSIDE RECORDS SUMMARY | 2024-12-16 11:40 | XMS_ITS | Encounter Summary ---
Author Organization [facility] Address [address] [place] [address] Phone Care Team Providers Care Ear Pull Machine Operator Name Role Phone Marita Wetzel DO Primary Care Provider Unava ilable Encounter Details Date Type Department Care Team (Late st Contact Info) Description 04/18/2023 Documentation Only [facility] [address] [place] [phone] Jerod Adames DO [address] [place] [address] [place] [phone] Social History Tobacco Use Types Packs/Day Years [...] Services Of [facility] [address] [place] [address] 03/08/2025 12:30 PM EST Scheduled Only [facility] [address] [place] [phone] documented as of this encounter Visit Diagnoses Not on filedocumented in this encounter Care Teams Ear Pull Machine Operator Relationship Specialty Start Date End Date Marita Wetzel DO [address] [place] [address] PCP - General Family Medicine 11/14/22 documented as of this encounter
--- OUTSIDE RECORDS SUMMARY | 2024-12-16 11:40 | XMS_ITS | Encounter Summary ---
Author Organization [facility] Address [address] [place] [address] Phone Care Team Providers Care Airplane Dispatch Clerk Name Role Phone Marita Wetzel DO Primary Care Provider Unava ilable Encounter Details Date Type Department Care Team (Late st Contact Info) Description 05/20/2023 Documentation Only [facility] [address] [place] [phone] [place], [place], [place] [address] [place] [phone] Social History Tobacco Use Types Packs/Day Years [...] Support [facility] [address] [place] [phone] 03/08/2025 12:30 PM EST Scheduled Only [facility] [address] [place] [phone] documented as of this encounter Visit Diagnoses Not on filedocumented in this encounter Care Teams Airplane Dispatch Clerk Relationship Specialty Start Date End Date Marita Wetzel DO [address] [place] [address] PCP - General Family Medicine 11/14/22 documented as of this encounter
--- OUTSIDE RECORDS SUMMARY | 2024-12-16 11:40 | XMS_ITS | Encounter Summary ---
Author Organization [facility] Address [address] [place] [address] Phone Care Team Providers Care Beaming Machine Operator Name Role Phone Marita Wetzel DO Primary Care Provider Unava ilable Encounter Details Date Type Department Care Team (Late st Contact Info) Description 05/01/2023 Documentation Only [facility] [address] [place] [phone] [place], [place] [address] [place] [phone] Social History Tobacco Use Types Packs/Day Years [...] [facility] [address] [place] [phone] 03/08/2025 12:30 PM EST Scheduled Only [facility] [address] [place] [phone] Scheduled Orders Name Type Priority Associated Diagnoses [...] Primary documented in this encounter Care Teams Beaming Machine Operator Relationship Specialty Start Date End Date Marita Wetzel DO [address] [place] [address] PCP - General Family Medicine 11/14/22 documented as of this encounter
--- OUTSIDE RECORDS SUMMARY | 2024-12-16 11:40 | XMS_ITS | Encounter Summary ---
Author Organization [employer] Address [address] [facility] 7t [place] [address] Care Team Providers Care Tire Molder Name Role Phone DevendraMarita perez Primary Care Provider + [phone] Encounter Details Date Type Department Care Team ([facility] st Contact Info) Description 12/08/2024 Orders Only [facility] MEDICINE [address] [place] [address] Cherry Landa MD [address] [place] [address] Social History Tobacco Use Types Packs/Day Years [...] Visit [facility] MED[facility]INE [address] [place], [place] [phone] Marita Wetzel DO [address] [place], [place] [phone] documented as of this encounter Goals Goal [...] documented as of this encounter Care Teams Tire Molder Relationship Specialty Start Date End Date Marita Wetzel DO [address] [place], [place] [phone] PCP - General Family Medicine 04/21/18 [facility] 05/22/24 documented as of this encounter
--- OUTSIDE RECORDS SUMMARY | 2024-12-16 11:40 | XMS_ITS | Encounter Summary ---
Author Organization [employer] Address [address] [facility] 7t [place] [address] Care Team Providers Care Molder Sweep Name Role Phone Damari Marita Primary Care Provider + [phone] Reason for Visit * Reason Comments Med Change Request Encounter Details Date Type Department Care Team ([facility] st Contact Info) Description 12/08/2024 Refill [facility] [address] [place] [address] Cherry Landa MD [address] [place] [address] Type 2 diabetes mellitus with stage 3b chronic kidney disease, with long-term current use of insulin ([facility]) Social History Tobacco Use [...] Description 12/27/2024 10:15 AM EDT Office Visit [facility] [address] [place] [phone] Marita Wetzel DO [address] [place], [place] [phone] documented as of this encounter Goals Goal [...] disease, with long-term current use of insulin ([facility]) documented in this encounter Additional Health Concerns Assessment Noted Time PHQ-9 Depression Total Score: 0 10/09/19 23 9:31 AM EDT documented as of this encounter Care Teams Molder Sweep Relationship Specialty Start Date End Date Marita Wetzel DO [address] [place] [phone] PCP - General Family Medicine 04/21/18 [facility] 05/22/24 documented as of this encounter
--- OUTSIDE RECORDS SUMMARY | 2024-12-16 11:41 | XMS_ITS | Encounter Summary ---
Author Organization [facility] Address [address] [place] [address] Care Team Providers Care Managing Broker Name Role Phone Marita Wetzel DO Primary Care Provider [phone] Encounter Details Date Type Department Care Team (Late st Contact Info) Description 05/31/2024 Lab Requisition [facility] - Main Lab [address] [facility] [place] [phone] Marily Gordillo MD [address] [place] [address] Acute kidney failure, unspecified (CMS/HCC [...] unspecified documented in this encounter Care Teams Managing Broker Relationship Specialty Start Date End Date Marita Wetzel DO [address] [place], [place] PCP - General 01/09/23 documented as of this encounter
--- OUTSIDE RECORDS SUMMARY | 2024-12-16 11:41 | XMS_ITS | Encounter Summary ---
Author Organization [facility], Address [address] [place] [address] Phone Care Team Providers Care Adjunct Faculty For Medical Terminology Name Role Phone Marita Wetzel DO Primary Care Provider Unava ilable Encounter Details Date Type Department Care Team (Late Contact Info) Description 12/13/2024 Orders Only [facility] [address] [place] [phone] Bernardo Doty MD [address] [place] [address] [place] [phone] Social History Tobacco Use Types Packs/Day Years [...] [facility] - [facility] [address] [place] [address] [place] [address] 03/08/2025 12:30 PM EST Scheduled Only [facility] [address] [place] [address] [place] [phone] documented as of this encounter Procedures Procedure Name Priority Date/Time Associated Diagnosis Comments HD KINETICS Routine 12/13/2024 POST CHEMISTRY Routine 12/13/2024 CHEMISTRY Routine 12/13/2024 documented in this encounter Results * HD KINETICS (12/13/2024) % Urea Reduction 75 65 - 80 % [facility] 12/13/2024 12/16/2024 8:2 6 AM EDT Narrative Resulting Agency Comment Specimen source: Plasma us Bernardo Doty MD LAB BLOOD ORDERABLES Final Resul t Performing Organization Address [facility] de Phone Number World Reviewer See order comments or contact performing lab Unknown, [place] * POST CHEMISTRY (12/13/2024) BUN Post Dialysis 17 6 - 19 mg/dL [facility] 12/13/2024 12/16/2024 8:2 6 AM EDT Narrative [facility] - 12/16/2024 Unless otherwise specified, test(s) performed at: [facility], [address] [place] [address] SAFE TECHNICIAN: Dwayne Fuentes M.D. For any questions, please call customer service at FREQUENCY:OTHER Resulting Agency Comment Specimen source: Plasma us Bernardo Doty MD LAB BLOOD ORDERABLES Final Resul t Performing Organization Address [facility] de Phone Number World Reviewer See order comments or contact performing lab Unknown, [place] * (ABNORMAL) [facility] (12/13/2024) BUN 68(H) 6 - 19 mg/dL [facility] 12/13/2024 12/14/2024 9:0 7 AM EDT Narrative [facility] - 12/14/2024 Unless otherwise specified, test(s) performed at: [facility], [address] [place] [id number] SAFE TECHNICIAN: Dwayne Fuentes M.D. For any questions, please call customer service at FREQUENCY:OTHER Resulting Agency Comment Specimen source: Serum us Bernardo Doty MD LAB BLOOD ORDERABLES Final Resul t [facility] See order comments or contact performing lab Unknown, [place] documented in this encounter Visit Diagnoses Not on filedocumented in this encounter Care Teams Adjunct Faculty For Medical Terminology Relationship Specialty Start Date End Date Marita Wetzel DO [address] [place] [address] PCP - General Family Medicine 11/14/22 documented as of this encounter
--- OUTSIDE RECORDS SUMMARY | 2024-12-16 11:41 | XMS_ITS | Encounter Summary ---
Author Organization [facility] Address [address] [place] [address] Phone Care Team Providers Care Nailer Machine Name Role Phone Marita Wetzel DO Primary Care Provider Unava ilable Encounter Details Date Type Department Care Team (Late st Contact Info) Description 01/21/2024 Documentation Only [facility] [address] [place] [phone] Pauline Aguayo [address] [place] [phone] Social History Tobacco Use Types Packs/Day Years [...] Of [facility] Vascular Access Center [address] [place] [address] [place] [address] 03/08/2025 12:30 PM EST Scheduled Only [facility] Vascular Access [address] [place] [phone] documented as of this encounter Visit Diagnoses Not on filedocumented in this encounter Care Teams Nailer Machine Relationship Specialty Start Date End Date Marita Wetzel DO [address] [place] [address] PCP - General Family Medicine 11/14/22 documented as of this encounter
--- OUTSIDE RECORDS SUMMARY | 2024-12-16 11:41 | XMS_ITS | Encounter Summary ---
Author Organization [facility] [place], Address [address] [place] [address] Phone Care Team Providers Care Tower Hand Name Role Phone Marita Wetzel DO Primary Care Provider Unava ilable Reason for Visit * Reason Comments Med Refill Encounter Details Date Type Department Care Team (Late Contact Info) Description 12/06/2020 Refill [facility] [place] [address] [place] [phone] Bernardo Doty MD [address] [facility] [place] [phone] Social History Tobacco Use Types Packs/Day Years [...] Support [facility] V[facility] Access Center [address] [place] [phone] 03/08/2025 12:30 PM EST Scheduled Only [facility] [address] [place] [phone] documented as of this encounter Visit Diagnoses Not on filedocumented in this encounter Care Teams Tower Hand Relationship Specialty Start Date End Date Marita Wetzel DO [address] [place] [address] PCP - General Family Medicine 11/14/22 documented as of this encounter
--- OUTSIDE RECORDS SUMMARY | 2024-12-16 11:41 | XMS_ITS | Patient Health Record ---
Author Organization [facility] Address [address] [place] [address] Care Team Providers Care Missile Inspector Preflight Name Role Phone FiorellasylwiaMiryam Unavailable [phone] Reason For Referral No Information Encounters Encounter Location Date Provider Diagnosis [facility] [address] [place] [address] 04/22/2024 Miryam Tyson [facility] [address] [place] [address] 06/17/2024 Miryam Tyson Plan Of Treatment No Information Insurance Providers Payer Name Payer Address Payer Phone Subscriber Number Group Number Insured Name Patient Relationship to Insured Coverage Start Date Coverage End Date Medicare [employer] [facility] [address] [place] [address] [id number] Alix Shrap Self - patient is the insured for Life [address] [place] [id number] [phone] [id number] Alix Sharp Self - patient is the insured
--- OUTSIDE RECORDS SUMMARY | 2024-12-16 11:41 | XMS_ITS | Encounter Summary ---
Author Organization [facility] Address [address] [place] [address] Phone Care Team Providers Care Forensic Manager Name Role Phone Marita Wetzel DO Primary Care Provider Unava ilable Encounter Details Date Type Department Care Team (Late st Contact Info) Description 12/31/2022 Documentation Only [facility] [address] [place] [phone] Candace Adam PA [address] [place] [address] [place] [phone] Social History Tobacco Use Types Packs/Day Years [...] Support [facility] Vascular Access [address] [place] [phone] 03/08/2025 12:30 PM EST Scheduled Only [facility] V[facility] Access [address] [place] [phone] documented as of this encounter Visit Diagnoses Not on filedocumented in this encounter Care Teams Forensic Manager Relationship Specialty Start Date End Date Marita Wetzel DO [address] [place] [address] PCP - General Family Medicine 11/14/22 documented as of this encounter
--- OUTSIDE RECORDS SUMMARY | 2024-12-16 11:41 | XMS_ITS | Encounter Summary ---
Author Organization [facility] Address [address] [place] [address] Phone Care Team Providers Care Sales Promotion Director Name Role Phone Marita Wetzel DO Primary Care Provider Unava ilable Encounter Details Date Type Department Care Team (Late st Contact Info) Description 09/26/2022 Documentation Only [facility] [address] [place] [phone] Candace Adam PA [address] [place] [address] [place] [phone] Social History Tobacco Use Types Packs/Day Years [...] Services Of [facility] Vascular Access [address] [place] [phone] 03/08/2025 12:30 PM EST Scheduled Only [facility] Vascular Access [address] [place] [phone] documented as of this encounter Visit Diagnoses Not on filedocumented in this encounter Care Teams Sales Promotion Director Relationship Specialty Start Date End Date Marita Wetzel DO [address] [place] [address] PCP - General Family Medicine 11/14/22 documented as of this encounter
--- OUTSIDE RECORDS SUMMARY | 2024-12-16 11:41 | XMS_ITS | Encounter Summary ---
Author Organization [facility] [place], Address [address] [place] [address] Phone Care Team Providers Care Stone Layout Marker Name Role Phone Marita Wetzel DO Primary Care Provider Unava ilable Reason for Visit * Reason Comments Med Refill Encounter Details Date Type Department Care Team (Late Contact Info) Description 05/08/2021 Refill [facility] [place] [address] [place] [phone] Bernardo Doty MD [address] [facility] [place] [phone] Social History Tobacco Use Types Packs/Day Years [...] Care And Transplant [facility] Vascular Access Center [address] [facility] [place] [phone] 03/08/2025 12:30 PM EST Scheduled Only [facility] V[facility] Access Center [address] [facility] [place] [phone] documented as of this encounter Visit Diagnoses Not on filedocumented in this encounter Care Teams Stone Layout Marker Relationship Specialty Start Date End Date Marita Wetzel DO [address] [place] [address] PCP - General Family Medicine 11/14/22 documented as of this encounter
--- OUTSIDE RECORDS SUMMARY | 2024-12-16 11:41 | XMS_ITS | Encounter Summary ---
Author Organization [facility] Address [address] [place] [address] Phone Care Team Providers Care Yeast Stacker Name Role Phone Marita Wetzel DO Primary Care Provider Unava ilable Encounter Details Date Type Department Care Team (Late st Contact Info) Description 12/06/2022 Documentation Only [facility] [address] [place] [phone] [place], [place] [address] [place] [phone] Social History Tobacco Use Types Packs/Day Years [...] Support [facility] - Vascular Access Center [address] [facility] [place] [phone] 03/08/2025 12:30 PM EST Scheduled Only [facility] V[facility] Access Center [address] [facility] [place] [phone] documented as of this encounter Visit Diagnoses Not on filedocumented in this encounter Care Teams Yeast Stacker Relationship Specialty Start Date End Date Marita Wetzel DO [address] [place] [address] PCP - General Family Medicine 11/14/22 documented as of this encounter
--- OUTSIDE RECORDS SUMMARY | 2024-12-16 11:41 | XMS_ITS | Encounter Summary ---
Author Organization [employer] Address [address] [facility] [address] [place] [address] Care Team Providers Care Seafood Farmer Name Role Phone Marita Wetzel DO Primary Care Provider [phone] Carmen Becker PharmD Unavailable Encounter Details Date Type Department Care Team ([facility] Contact Info) Description 10/14/2022 Abstract [facility] MEDICINE [address] [place] [address] Marita Wetzel DO [address] [place] [address] Social History Tobacco Use Types Packs/Day Years [...] Upcoming Encounters Date Type Department Care Team ([facility] Contact Info) Description 12/27/2024 10:15 AM EDT Office Visit [facility] MEDICINE [address] [place] [address] Marita Wetzel DO [address] [place] [address] documented as of this encounter Visit Diagnoses Not on filedocumented in this encounter Additional Health Concerns Assessment Noted Time PHQ-9 Depression Total Score: 0 10/09/19 23 9:31 AM EDT documented as of this encounter Care Teams Seafood Farmer Relationship Specialty Start Date End Date Marita Wetzel DO [address] [place], [place] [phone] PCP - General Family Medicine 04/21/18 Carmen Becker PharmD [address] [place] [address] Pharmacist Internal Medicine 07/21/23 01/21/24 [facility] 05/22/24 documented as of this encounter
--- OUTSIDE RECORDS SUMMARY | 2024-12-16 11:41 | XMS_ITS | Clinical Summary ---
Author Organization [employer] Address [address] [place] [address] 7[address] [place] [address] Care Team Providers Care Human Resources Analyst Name Role Phone Damari Marita Primary Care Provider [phone] Allergies Active Allergy Reactions Criticality Noted Date Comments Codeine Hives High 11/12/2011 Other reaction(s): FAINTING/HIVES Oxycodone 07/30/2022 Oxycodone-Acetaminophen Hives High 10/05/2012 Other reaction(s): Nausea / Vomiting Medications * This document contains information received from the source organization and may not represent a complete record from that organization. Continuous Blood Gluc Gym Supervisor ([employer] Seema 2 [place]) device 05/07/19 23 Active dorzolamide-ti molol (Cosopt) [...] Blood Gluc Sensor (FreeStyle Seema 2 Sensor) [facility] [place] Use as directed Active mycophenolate (Myfortic) 360 [...] 4 times daily. 10/10/19 24 Active Procrit 34568 UNIT/ML injection 12/09/19 24 Active insulin lispro (HumaLOG KWIKPEN) 100 UNIT/ML injectionIndic ations:Type 2 diabetes mellitus with stage 3b chronic kidney disease, with long-term current use of insulin ([facility]) Inject subQ 3 times daily [...] mL 3 12/09/19 25 Active Continuous Glucose Gym Supervisor (FreeStyle Seema 3 [place]) deviceIndicati ons:Type 2 diabetes mellitus with stage [...] mL 12/08/19 25 025 Discontinued Continuous Glucose Gym Supervisor (FreeStyle Seema 3 [place]) deviceIndicati ons:Type 2 diabetes mellitus with stage [...] disease, with long-term current use of insulin ([facility]) 1 each every 15 days. Apply 1 every 15 days as directed for CGM 2 each 12/08/19 025 Discontinued(Re order (will not trigger notification to Pharmacy)) glucose blood (FreeStyle Precision Nikko Test) test stripIndicatio ns:Type 2 diabetes mellitus with stage 3b chronic kidney disease, with long-term current use of insulin ([facility]) Use to test blood sugar [...] Encounters Date Type Department Care Team Description 12/16/2024 Telephone [facility] [address] [place] [address] Marita Wetzel DO Chart Prep 12/09/2024 Refill [facility] [address] [place] [address] Faye Batista RN Type 2 diabetes mellitus with stage 3b chronic kidney disease, with long-term current use of insulin ([facility]/HCC) 12/08/2024 Orders Only [address] [address] Cherry Landa MD 12/08/2024 Refill [facility] [address] [place] [phone] Cherry Landa MD Type 2 diabetes mellitus with stage 3b chronic kidney disease, with long-term current use of insulin (CMS/HCC) 12/07/2024 11:20 AM EDT [facility] [address] [address] Cherry Landa MD Essential hypertension (Primary Dx); Type 2 diabetes mellitus with hyperglycemia, with long-term current use of insulin (CMS/HCC); Type 2 diabetes mellitus with stage 3b chronic kidney disease, with long-term current use of insulin (CMS/HCC); Pancreatic lesion; Other ascites 12/07/[address] [facility] [address] [place] [phone] Cherry Landa MD Type 2 diabetes mellitus with stage 3b chronic kidney disease, with long-term current use of insulin ([facility]/HCC) 12/07/2024 Travel 12/06/[address] [address] Marita Wetzel DO telephone call 11/27/2024 Orders Only [facility] External Provider, [facility] 11/05/[address] [address] Marita Wetzel DO Results; Referral 11/02/2024 11:00 AM EDT [facility] [address] [address] Cherry Landa MD Abdominal enlargement; Pain of upper abdomen 11/02/2024 Travel 10/25/[address] [address] Marita Wetzel DO call back needed 10/14/2024 Telephone [facility] [address] [place] [phone] Marita Wetzel DO ER Follow-up from Last [...] Description 12/27/2024 10:15 AM EDT Office Visit [facility] [address] [place] [address] Marita Wetzel, DO [address] [place] [address] Health Maintenance Due Date Last Done Comments [...] disease, with long-term current use of insulin ([facility]) POCT GLYCATED HEMOGLOBIN, TOTAL Routine 12/07/2024 11:38 AM EDT Type 2 diabetes mellitus with stage 3b chronic kidney disease, with long-term current use of insulin ([facility]) CT ABDOMEN PELVIS WO CONTRAST [...] specimen / Unknown 12/07/2024 11:38 AM EDT Cherry Kc MD POINT OF CARE TEST EN TER/EDIT ORDERABLES Final Result * CT Abdomen Pelvis w/o Contrast (11/27/2024 2:54 PM EDT) Anatomical Region Laterality Modality Body, Pelvis, Abdomen Computed T omography 11/27/2024 2:54 PM EDT Narrative 11/27/2024 2:55 PM EDT [address] [address] [address] Scan Report Signed Patient: Alix Sharp MR#: [id number] 43 : 1960 Acct:[id number] Age/Sex: 64 / F ADM Date: 11/27/24 Loc: HO.ED Attending Dr: Ordering Physician: Shavonne Lima NP Date of Service: 11/27/24 Procedure(s): CT abdomen pelvis wo IV con Accession Number(s): [id number] cc: Marita Wetzel DO; Shavonne Lima NP Report Number: [id number]: Total DLP = 644.00 mGy-cm CLINICAL HISTORY: [...] OV> 11/27/24 1455 DD/ 1454 TD/TT: 11/27/24 1454 Cathodic Protection Technician: Procedure Note Donotuseinterpreter, Image - 11/27/[address] [address] [address] Scan Report Signed Patient: Alix Sharp BMR#: [id number] 43 : 1960cct:[id number] Age/Sex: 64 / FADM Date: 11/27/24 Loc: HO.ED Attending Dr: Ordering Physician: Shavonne Lima NP Date of Service: 11/27/24 Procedure(s): CT abdomen pelvis wo IV con Accession Number(s): [id number] cc: Marita Wetzel DO; Shavonne Lima NP Report Number: [id number]: Total DLP = 644.00 mGy-cm CLINICAL HISTORY: [...] OV> 11/27/24 1455 DD/ 1454 TD/TT: 11/27/24 1454 Cathodic Protection Technician: [facility] External Provider IMG CT PROCEDURES Final Result * (ABNORMAL) CBC auto differential (11/27/2024 12:28 PM EDT) White Blood Count 5.8 4.8 - 10.8 X10*3/uL [facility] Red Blood Count 3.88(L) 4.20 - 5.50 X10*6/uL [facility] Hemoglobin 10.7(L) 12.0 - 16.0 g/dl [facility] Hematocrit 35.1(L) 37.0 - 47.0 % [facility] Mean Corpuscular Volume 90.5 80.0 - 98.0 fL [facility] Mean Corpuscular Hemoglobin 27.6 27.0 - 33.0 pg [facility] Mean Corpuscular HGB Conc 30.5(L) 31.0 - 35.0 g/dl [facility] Red Cell Distribution Width 18.1(H) 11.0 - 16.0 % [facility] Platelet Count 122(L) 160 - 400 X10*3/uL [facility] Mean Platelet Volume 9.4 9.4 - 12.3 fL [facility] Neutrophils Percent Auto 83.7(H) 45 - 73 % [facility] Imm Gran Pct Auto 0.3 0.0 - 0.4 % [facility] Lymphocytes Percent Auto 8.6(L) 20 - 40 % [facility] Monocytes Percent Auto 6.7 2 - 11 % [facility] Eosinophils Percent Auto 0.5 0 - 4 % [facility] Basophils Percent Auto 0.2 0 - 2 % [facility] NRBC Pct Auto 0.0 0.0 - 0.2 /100WBC [facility] Neutrophils Absolute Auto 4.9 2.0 - 8.3 x10*3/uL [facility] Imm Gran Abs Auto 0.02 0.00 - 0.03 X10*3/uL [facility] Lymphocytes Absolute Auto 0.5(L) 1.2 - 4.9 X10*3/uL [facility] Monocytes Absolute Auto 0.4 0.1 - 1.2 X10*3/uL [facility] Eosinophils Absolute Auto 0.0 0.0 - 0.4 X10*3/uL [facility] Basophils Absolute Auto 0.0 0.0 - 0.2 X10*3/uL [facility] NRBC Abs Auto 0.000 0.0 - 0.012 X10*3/uL [facility] 11/27/2024 12:2 8 PM EDT 11/27/2024 12:36 PM EDT Narrative [facility] - 11/27/2024 12:39 PM EDT patient has power port . RN to access port when in room us Generic External Data Provider LAB BLOOD ORDERAB LES Final Result [facility] [address] [place] [address] [phone] * (ABNORMAL) Comprehensive Metabolic Panel (11/27/2024 12:28 PM EDT) Sodium 138 135 - 145 mmol/L [facility] Potassium 4.3 3.3 - 5.1 mmol/L [facility] Chloride 103 96 - 108 mmol/L [facility] Carbon Dioxide 24 22 - 29 mmol/L [facility] Anion Gap 15 12 - 20 [facility] Urea Nitrogen (BUN) 40(H) 9 - 16 mg/dL [facility] Creatinine, Serum 4.26(HH) 0.5 - 1.4 mg/dL [facility] Comment:Critical value for t est(s): CREA Results called to and readback by: ALISIA Person calling: CIRCOD Date:11/27/24 Time: 1256 Creatinine Clr Calc Pharmacy 12.9 [facility] Comment:Provided height and weight: 170.18 cm,72.575 kg.eGFR (calculated from the MDRD study equation) and eCrCl(calculated from the Cockcroft-Gault equation) are based ondifferent parameters and may not yield comparable results.If eCrCl result is absurd, please check patient'sheight/weight. Estimated Glomerular Filt Rate 10 [facility] Comment:Chronic Kidney Disea se: Estimated GFR < 60 mL/min/1.50j6Gmghuk Kidney Disease: Estimated GFR < 15 mL/min/1.73m2 Glucose 153(H) 60 - 115 mg/dL [facility] Calcium 8.2(L) 8.4 - 10.2 mg/dL [facility] Bilirubin, Total 0.4 0.0 - 1.0 mg/dL [facility] Aspartate Amino Transferase 20 5 - 31 U/L [facility] Alanine Aminotransferase <6 0 - 31 U/L [facility] Total Protein 7.0 6.5 - 8.0 g/dL [facility] Albumin Level 3.3(L) 3.5 - 5.0 g/dL [facility] Alkaline Phosphatase 111 39 - 117 U/L [facility] 11/27/2024 12:2 8 PM EDT 11/27/2024 12:36 PM EDT Narrative [facility] - 11/27/2024 12:57 PM EDT patient has power port . RN to access port when in room us Generic External Data Provider LAB BLOOD ORDERAB LES Final Result [facility] [address] [place] [phone] * XR Elbow 3+ Views Left (11/27/2024 10:15 AM EDT) Anatomical Region Laterality Modality Upper Extremities, Elbow Left Radiogr aphic Imaging 11/27/2024 10:1 5 AM EDT Narrative 11/27/2024 10:17 AM EDT [address] [address] XRay Report Signed Patient: Alix Sharp MR#: [id number] 43 : 1960 Acct:[id number] Age/Sex: 64 / F ADM Date: 11/27/24 Loc: HO.ED Attending Dr: Ordering Physician: Generic ED Physician Date of Service: 11/27/24 Procedure(s): XR elbow LT min 3V Accession Number(s): [id number] cc: Generic ED Physician; Marita Wetzel DO [...] 11/27/24 1016 DD/ 1015 TD/TT: 11/27/24 1015 Cathodic Protection Technician: Procedure Note Donotclifinterpreter, Image - 11/27/[address] [address] XRay Report Signed Patient: Alix Sharp BMR#: [id number] 43 : 1960cct:[id number] Age/Sex: 64 / FADM Date: 11/27/24 Loc: HO.ED Attending Dr: Ordering Physician: Generic ED Physician Date of Service: 11/27/24 Procedure(s): XR elbow LT min 3V Accession Number(s): [id number] cc: Generic ED Physician; Marita Wetzel DO [...] 11/27/24 1016 DD/ 1015 TD/TT: 11/27/24 1015 Cathodic Protection Technician: [facility] External Provider IMG XR PROCEDURES Final Result * XR Hip left with Pelvis 1 view (11/27/2024 10:00 AM EDT) Anatomical Region Laterality Modality Lower Extremities, Hip Bilateral Radiograp hic Imaging 11/27/2024 10:0 0 AM EDT Narrative 11/27/2024 10:01 AM EDT [address] [address] XRay Report Signed Patient: Alix Sharp MR#: [id number] [birth year] : 1960 Acct:[id number] Age/Sex: 64 / F ADM Date: 11/27/24 Loc: HO.ED Attending Dr: Ordering Physician: Generic ED Physician Date of Service: 11/27/24 Procedure(s): XR hip LT w PEL1V Accession Number(s): [id number] cc: Generic ED Physician; Marita Wetzel DO CLINICAL HISTORY: fall of left hip 3 view, pelvis and left hip Comparison: None provided Findings: Curvilinear lucent line projecting over the medial aspect of the right inferior ischiopubic ramus may be artifactual or due to an age-indeterminate fracture. Correlate clinically. Otherwise no acute fracture. Three proximal femoral screws without hardware complications. Elpa-uw-pgnlyoim degenerative narrowing of the superomedial aspects of [...] 11/27/24 1001 DD/ 1000 TD/TT: 11/27/24 1000 Cathodic Protection Technician: Procedure Note Donotuseinterpreter, Image - 11/27/[address] [address] XRay Report Signed Patient: Alix Sharp BMR#: [id number] 43 : 1960cct:[id number] Age/Sex: 64 / FADM Date: 11/27/24 Loc: HO.ED Attending Dr: Ordering Physician: Generic ED Physician Date of Service: 11/27/24 Procedure(s): XR hip LT w PEL1V Accession Number(s): [id number] cc: Generic ED Physician; Marita Wetzel DO CLINICAL HISTORY: fall of left hip 3 view, pelvis and left hip Comparison: None provided Findings: Curvilinear lucent line projecting over the medial aspect of the right inferior ischiopubic ramus may be artifactual or due to an age-indeterminate fracture. Correlate clinically. Otherwise no acute fracture. Three proximal femoral screws without hardware complications. Vfqz-tg-iuslzqnh degenerative narrowing of the superomedial aspects of [...] 11/27/24 1001 DD/ 1000 TD/TT: 11/27/24 1000 Cathodic Protection Technician: [facility] External Provider IMG XR PROCEDURES [...] AM EDT Narrative 08/03/2023 8:29 PM EDT [facility] [address] [place] [address] Mammography Report Signed Patient: Alix Dennis MR#: [id number] : 1960 Acct:[id number] Age/Sex: 63 / F ADM Date: 07/17/23 Loc: HO.MAMMO Attending Dr: Marita Wetzel DO Ordering Physician: Marita Wetzel DO Results: 2B enign Findings Date of Service: 07/17/23 Follow Up: 1 Year From Orig ina Mammogram Procedure(s): MM tomosynthesis screening BI Accession Number(s): [id number] cc: Marita Wetzel DO EXAMINATION: MM SCREENING [...] MD in OV> 08/03/232024 DD/ 1045 TD/TT: Cathodic Protection Technician: Procedure Note Donotuseinterpreter, Image - 08/03/2023 [facility] [address] [place], [place] [address] Mammography Report Signed Patient: Alix Dennis FMR#: [id number] : 1Acct:[id number] Age/Sex: 63 / FADM Date: 07/17/23 Loc: HO.MAMMO Attending Dr: Marita Wetzel DO Ordering Physician: Marita Wetzelults: 2B enign Findings Date of Service: 07/17/23Follow Up: 1 Year From Orig ina Mammogram Procedure(s): MM tomosynthesis screening BI Accession Number(s): [id number] cc: Marita Wetzel DO EXAMINATION: MM SCREENING [...] MD in OV> 08/03/232024 DD/ 1045 TD/TT: Cathodic Protection Technician: Marita Wetzel DO IMG BI PROCEDURES Edited Res ult - Final * Hm Pap Smear (08/12/2018) Pap Negative for intraephithelial lesion or malignancy Negative for intraephithelial lesion or malignancy, Other HPV Undetected Undetected, Indeterminate, Quantitative, Not Detected Historical Provider MD HEALTH MAINTENANCE Final Result from Last 3 Months or Most Recently Relevant to Health Maintenance Insurance MEDICARE [facility] [employer] Care Teams Human Resources Analyst Relationship Specialty Start Date End Date Marita Wetzel DO [address] [place] [address] PCP - General Family Medicine 04/21/18 [facility] 05/22/24
--- OUTSIDE RECORDS SUMMARY | 2024-12-16 11:41 | XMS_ITS | Encounter Summary ---
Author Organization [facility], Address [address] [facility] [place] [address] Phone Care Team Providers Care Sausage Stuffer Name Role Phone Marita Wetzel DO Primary Care Provider Unava ilable Reason for Visit * Reason Comments Med Refill Encounter Details Date Type Department Care Team (Late Contact Info) Description 06/30/2024 Refill [facility] [address] [place] [phone] Srinivas Agrawal MD [address] [place] [phone] Social History Tobacco Use Types Packs/Day Years [...] [facility] [address] [place] [phone] 03/08/2025 12:30 PM EST Scheduled Only [facility] [address] [place] [phone] documented as of this encounter Procedures Procedure Name Priority Date/Time Associated Diagnosis Comments HEMATOLOGY Routine 06/30/2024 documented in this encounter Results * (ABNORMAL) HEMATOLOGY (06/30/2024) Hemoglobin 6.3(L) 12.0 - 16.0 g/dL [facility] Hemoglobin x 3 18.9(L) 36.0 - 48.0 % [facility] 06/30/2024 07/01/2024 10: 49 AM EDT Narrative [facility] - 07/01/2024 Unless otherwise specified, test(s) performed at: [facility], [address] [place] [address] REFRIGERATOR ROOM CLERK: Dwayne Fuentes M.D. For any questions, please call customer service at FREQUENCY:OTHER Resulting Agency Comment Specimen source: Blood Srinivas Agrawal MD LAB BLOOD ORDERABLES Final Result [facility] See order comments or contact performing lab Unknown, [place] documented in this encounter Visit Diagnoses Not on filedocumented in this encounter Care Teams Sausage Stuffer Relationship Specialty Start Date End Date Marita Wetzel DO [address] [place] [phone] PCP - General Family Medicine 11/14/22 documented as of this encounter
--- OUTSIDE RECORDS SUMMARY | 2024-12-16 11:41 | XMS_ITS | Encounter Summary ---
Author Organization [facility] Address [address] [place] [address] Phone Care Team Providers Care Associate Editor Name Role Phone Marita Wetzel DO Primary Care Provider Unava ilable Encounter Details Date Type Department Care Team (Late st Contact Info) Description 04/13/2024 Documentation Only [facility] [address] [place] [phone] [place], [place], [place] [address] [place] [phone] Social History Tobacco Use Types Packs/Day Years [...] [facility] [address] [phone] 03/08/2025 12:30 PM EST Scheduled Only [facility] [place] [address] [phone] documented as of this encounter Visit Diagnoses Not on filedocumented in this encounter Care Teams Associate Editor Relationship Specialty Start Date End Date Marita Wetzel DO [address] [place] [address] PCP - General Family Medicine 11/14/22 documented as of this encounter
--- OUTSIDE RECORDS SUMMARY | 2024-12-16 11:41 | XMS_ITS | Encounter Summary ---
Author Organization [facility] Address [address] [place] [address] Phone Care Team Providers Care Bleacher [employer] Name Role Phone Marita Wetzel DO Primary Care Provider Unava ilable Encounter Details Date Type Department Care Team (Late st Contact Info) Description 04/17/2024 Documentation Only [facility] [address] [place] [phone] [place], [place], [place] [address] [place] [phone] Social History Tobacco Use Types Packs/Day Years [...] Support [facility] [address] [phone] 03/08/2025 12:30 PM EST Scheduled Only [facility] [place] [address] [phone] documented as of this encounter Visit Diagnoses Not on filedocumented in this encounter Care Teams Bleacher [employer] Relationship Specialty Start Date End Date Marita Wetzel DO [address] [place] [address] PCP - General Family Medicine 11/14/22 documented as of this encounter
--- OUTSIDE RECORDS SUMMARY | 2024-12-16 11:41 | XMS_ITS | Encounter Summary ---
Author Organization [facility] [place], Address [address] [facility] [address] Phone Care Team Providers Care Structural Engineer Name Role Phone Marita Wetzel DO Primary Care Provider Unava ilable Reason for Visit * Reason Comments Med Refill Encounter Details Date Type Department Care Team (Late Contact Info) Description 06/18/2024 Refill [facility] [address] [place] [phone] Srinivas Agrawal MD [address] [place] [phone] Social History Tobacco Use Types Packs/Day Years [...] [facility] [address] [place] [phone] 03/08/2025 12:30 PM EST Scheduled Only [facility] V[facility] Access Center [address] [place] [phone] documented as of this encounter Procedures Procedure Name Priority Date/Time Associated Diagnosis Comments HD KINETICS Routine 06/18/2024 POST CHEMISTRY Routine 06/18/2024 IMMUNO CHEMISTRY Routine 06/18/2024 HEMATOLOGY Routine 06/18/2024 CHEMISTRY Routine 06/18/2024 CHEMISTRY Routine 06/18/2024 [facility] LAB RESULTS Routine 06/18/2024 documented in this encounter Results * [facility] IVET Lab Results (06/18/2024) Pathologist [facility] eKt/V ([place]) 1.28 Knowledge Center WSTDKT/V 0.8 Knowledge Center spKt/V (Daugirdas II) 1.50 [facility] 06/18/2024 06/18/2024 [facility] Ordering Provider LAB BLOOD ORDERABLES Final Result [facility] Contact Performing lab Unknown, [place] * HD KINETICS (06/18/2024) Pathologist [facility] % Urea Reduction 70 65 - 80 % [facility] 06/18/2024 06/22/2024 9:5 5 AM EST Narrative Resulting Agency Comment Specimen source: Plasma us Srinivas Agrawal MD LAB BLOOD ORDERABLES Final Result [facility] See order comments or contact performing lab Unknown, [place] * POST CHEMISTRY (06/18/2024) Pathologist [facility] BUN Post Dialysis 13 6 - 19 mg/dL [facility] 06/18/2024 06/22/2024 9:5 5 AM EST Narrative [facility] - 06/22/2024 Unless otherwise specified, test(s) performed at: [facility], [address] [place] [address] VOICE PATHOLOGIST: Dwayne Fuentes M.D. For any questions, please call customer service at FREQUENCY:MONTHLY Resulting Agency Comment Specimen source: Plasma Srinivas Agrawal MD LAB BLOOD ORDERABLES Final Result [employer] See order comments or contact performing lab Unknown, [place] * IMMUNO CHEMISTRY (06/18/2024) Pathologist [facility] Hep B Surface Ag Negative Negative [facility] 06/18/2024 06/19/2024 11: 21 AM EST Narrative Resulting Agency Comment Specimen source: Serum Srinivas Agrawal MD LAB BLOOD ORDERABLES Final Result Performing Organization Address City/[facility]/ZIP Co de Phone Number [employer] [facility] See order comments or contact performing lab Unknown, [place] * (ABNORMAL) [facility] Chemistry (06/18/2024) Pathologist [facility] BUN 44(H) 6 - 19 mg/dL [facility] [...] 06/19/2024 Unless otherwise specified, test(s) performed at: [facility], [address] [place], [place] [id number] VOICE PATHOLOGIST: Dwayne Fuentes M.D. For any questions, please call customer service at FREQUENCY:MONTHLY Resulting Agency Comment Specimen source: Serum Srinivas Agrawal MD LAB BLOOD ORDERABLES Edite d Result - Final Performing Organization Address [facility] Co de Phone Number [employer] See order comments or contact performing lab Unknown, [place] * (ABNORMAL) HEMATOLOGY (06/18/2024) Hemoglobin 7.9(L) 12.0 - 16.0 g/dL [facility] Hemoglobin x 3 23.7(L) 36.0 - 48.0 % [facility] 06/18/2024 06/19/2024 12: 24 PM EST Narrative [facility] - 06/19/2024 Unless otherwise specified, test(s) performed at: [facility], [address] [place] [id number] VOICE PATHOLOGIST: Dwanye Fuentes M.D. For any questions, please call customer service at FREQUENCY:MONTHLY Resulting Agency Comment Specimen source: Blood Srinivas Agrawal MD LAB BLOOD ORDERABLES Final Result Performing Organization Address City/[facility]/ZIP Co de Phone Number [employer] See order comments or contact performing lab Unknown, [place] * (ABNORMAL) [facility] Chemistry (06/18/2024) PTH 145(H) 16 - 80 pg/mL [facility] 06/18/2024 06/19/2024 11: 40 AM EST Narrative SANTY - 06/19/2024 Unless otherwise specified, test(s) performed at: [facility], [address] [place] [address] VOICE PATHOLOGIST: Dwayne Fuentes M.D. For any questions, please call customer service at FREQUENCY:MONTHLY Resulting Agency Comment Specimen source: Plasma us Srinivas Argawal MD LAB BLOOD ORDERABLES Final Result [employer] [facility] See order comments or contact performing lab Unknown, [place] documented in this encounter Visit Diagnoses Not on filedocumented in this encounter Care Teams Structural Engineer Relationship Specialty Start Date End Date Marita Wetzel DO [address] [place] [address] PCP - General Family Medicine 11/14/22 documented as of this encounter
--- OUTSIDE RECORDS SUMMARY | 2024-12-16 11:41 | XMS_ITS | Encounter Summary ---
Author Organization [facility] Address [address] [place] [address] Phone Care Team Providers Care Light Rail Operator Name Role Phone Marita Wetzel DO Primary Care Provider Unava ilable Encounter Details Date Type Department Care Team (Late st Contact Info) Description 01/01/2024 Documentation Only [facility] [address] [place] [phone] [place], [place], [place] [address] [place] [phone] Social History Tobacco Use Types Packs/Day Years [...] [facility] V[facility] Access Center [address] [place] [phone] 03/08/2025 12:30 PM EST Scheduled Only [facility] Vascular Access [place] [address] [place] [phone] documented as of this encounter Visit Diagnoses Not on filedocumented in this encounter Care Teams Light Rail Operator Relationship Specialty Start Date End Date Marita Wetzel DO [address] [place] [address] PCP - General Family Medicine 11/14/22 documented as of this encounter
--- OUTSIDE RECORDS SUMMARY | 2024-12-16 11:41 | XMS_ITS | Encounter Summary ---
Author Organization [facility] [place] [address] Phone Care Team Providers Care Activity Therapy Teacher Name Role Phone Fouzia Wetzelfer Primary Care Provider Unava ilable Encounter Details Date Type Department Care Team (Late st Contact Info) Description 03/18/2023 Documentation Only [facility] [address] [place] [phone] Srinivas Agrawal MD [address] [place] [address] [place] [address] Social History Tobacco Use Types [...] Support [facility] Vascular Access [address] [place] [address] 03/08/2025 12:30 PM EST Scheduled Only [facility] Vascular Access [address] [place] [phone] documented as of this encounter Visit Diagnoses Not on filedocumented in this encounter Care Teams Activity Therapy Teacher Relationship Specialty Start Date End Date Marita Wetzel DO [address] [place] [address] PCP - General Family Medicine 11/14/22 documented as of this encounter
--- OUTSIDE RECORDS SUMMARY | 2024-12-16 11:41 | XMS_ITS | Encounter Summary ---
Author Organization [facility] [place], Address [address] [place] [address] Phone Care Team Providers Care Warp Preparer Name Role Phone Marita Wetzel DO Primary Care Provider Unava ilable Encounter Details Date Type Department Care Team (Late st Contact Info) Description 04/02/2023 Documentation Only [facility] [place] [phone] Bernardo Doty MD [address] [facility] [address] Alvaro [place] [phone] Social History Tobacco Use Types Packs/Day Years [...] Support [facility] Vascular Access Center [address] [place] [address] 03/08/2025 12:30 PM EST Scheduled Only [facility] Vascular Access Center [address] [place] [address] documented as of this encounter Visit Diagnoses Not on filedocumented in this encounter Care Teams Warp Preparer Relationship Specialty Start Date End Date Marita Wetzel DO [address] [place] [address] PCP - General Family Medicine 11/14/22 documented as of this encounter
--- OUTSIDE RECORDS SUMMARY | 2024-12-16 11:41 | XMS_ITS | Encounter Summary ---
Author Organization [facility] [place], Address [address] [place] [address] Phone Care Team Providers Care Desktop Support Technician Name Role Phone Marita Wetzel DO Primary Care Provider Unava ilable Reason for Visit * Reason Comments Med Refill Encounter Details Date Type Department Care Team (Late Contact Info) Description 01/04/2021 Refill [facility] [address] [place] [phone] Bernardo Doty MD [address] [facility] [address] [facility] [place] [phone] Social History Tobacco Use Types Packs/Day Years [...] Support [facility] Vascular Access Center [address] [phone] 03/08/2025 12:30 PM EST Scheduled Only [facility] V[facility] Access Center [address] [phone] documented as of this encounter Visit Diagnoses Not on filedocumented in this encounter Care Teams Desktop Support Technician Relationship Specialty Start Date End Date Marita Wetzel DO [address] [place] [address] PCP - General Family Medicine 11/14/22 documented as of this encounter
--- OUTSIDE RECORDS SUMMARY | 2024-12-16 11:41 | XMS_ITS | Encounter Summary ---
Author Organization [employer] Address [address] [facility] [address] [place] [address] Care Team Providers Care Faculty Research Assistant Name Role Phone Marita Wetzel DO Primary Care Provider + [phone] Reason for Visit * Reason Onset Date Comments Hospital Follow-up 06/11/2024 Encounter Details Date Type Department Care Team ([facility] st Contact Info) Description 06/11/2024 Telephone [facility] MEDICINE [address] [place] [address] Marita Wetzel DO [address] [place], [place] [phone] Hospital Follow-up Social History Tobacco Use Types [...] from pt requesting a HDF appt. Hospital: [facility] Date of admission: 05/31/2024 Discharge date: ------ Diagnosed:kidney failure *Send message to [facility] Coordinators documented in this encounter Plan of Treatment Upcoming Encounters Date Type Department Care Team (Late st Contact Info) Description 12/27/2024 10:15 AM EDT Office Visit [facility] MEDICINE [address] [place], [place] [phone] Marita Wetzel DO [address] [place] [address] documented as of this encounter Goals Goal [...] documented as of this encounter Care Teams Faculty Research Assistant Relationship Specialty Start Date End Date Marita Wetzel DO [address] [place] [address] PCP - General Family Medicine 04/21/18 [facility] 05/22/24 documented as of this encounter
--- OUTSIDE RECORDS SUMMARY | 2024-12-16 11:41 | XMS_ITS | Encounter Summary ---
Author Organization [employer] Address [address] [facility] 7t [place] [address] Care Team Providers Care Palletiser Operator Name Role Phone Marita Wetzel DO Primary Care Provider [phone] Carmen Becker PharmD Unavailable [phone] Reason for Visit * Reason Onset Date Comments Prior Authorization 04/25/2023 [employer] Encounter Details Date Type Department Care Team (Late st Contact Info) Description 04/25/2023 Telephone [facility] MEDICINE [address] [place] [address] Marita Wetzel DO [address] [place] [address] Prior Authorization ([employer]) Social History Tobacco [...] Description 12/27/2024 10:15 AM EDT Office Visit [facility] MEDICINE [address] [place], [place] [phone] Marita Wetzel DO [address] [place] [address] documented as of this encounter Visit Diagnoses Not on filedocumented in this encounter Additional Health Concerns Assessment Noted Time PHQ-9 Depression Total Score: 0 10/09/19 23 9:31 AM EDT documented as of this encounter Care Teams Palletiser Operator Relationship Specialty Start Date End Date Marita Wetzel DO [address] [place] [address] PCP - General Family Medicine 04/21/18 Carmen Becker PharmD [address] [place] [address] Pharmacist Internal Medicine 07/21/23 01/21/24 [facility] 05/22/24 documented as of this encounter
--- OUTSIDE RECORDS SUMMARY | 2024-12-16 11:41 | XMS_ITS | Encounter Summary ---
Author Organization [facility] [place] [address] Phone Care Team Providers Care Security Installation Sales Technician Name Role Phone Fouzia Wetzelfer Primary Care Provider Unava ilable Encounter Details Date Type Department Care Team (Late st Contact Info) Description 10/03/2023 Documentation Only [facility] [address] [place] [phone] Srinivas Agrawal MD [address] [place] [address] [place] [address] Social History Tobacco Use Types [...] [facility] Vascular Access [address] [place] [address] 03/08/2025 12:30 PM EST Scheduled Only [facility] Vascular Access [address] [place] [phone] documented as of this encounter Visit Diagnoses Not on filedocumented in this encounter Care Teams Security Installation Sales Technician Relationship Specialty Start Date End Date Marita Wetzel DO [address] [place] [address] PCP - General Family Medicine 11/14/22 documented as of this encounter
--- OUTSIDE RECORDS SUMMARY | 2024-12-16 11:41 | XMS_ITS | Encounter Summary ---
Author Organization [employer] Address [address] [place] [address] 7t [place] [address] Care Team Providers Care Medication Coordinator Name Role Phone Marita Wetzel DO Primary Care Provider Carmen Becker PharmD Unavailable Encounter Details Date Type Department Care Team (Late st Contact Info) Description 12/11/2022 Orders Only [facility] PEDIATRICS [address] [place] [address] Heather Nesbitt, RN [address] [place] [address] Social History Tobacco Use Types Packs/Day Years [...] Description 12/27/2024 10:15 AM EDT Office Visit [facility] MEDICINE [address] [place] [address] Marita Wetzel DO [address] [place] [address] documented as of this encounter Visit Diagnoses Not on filedocumented in this encounter Additional Health Concerns Assessment Noted Time PHQ-9 Depression Total Score: 0 10/09/19 23 9:31 AM EDT documented as of this encounter Care Teams Medication Coordinator Relationship Specialty Start Date End Date Marita Wetzel DO [address] [place] [address] PCP - General Family Medicine 04/21/18 Carmen Becker PharmD [address] [place] [address] Pharmacist Internal Medicine 07/21/23 01/21/24 [facility] 05/22/24 documented as of this encounter
--- OUTSIDE RECORDS SUMMARY | 2024-12-16 11:41 | XMS_ITS | Encounter Summary ---
Author Organization [employer] Address [address] [facility] 7t [place] [address] Care Team Providers Care Service Department Manager Name Role Phone Marita Wetzel DO Primary Care Provider [phone] Carmen Becker PharmD Unavailable [phone] Encounter Details Date Type Department Care Team ([facility] st Contact Info) Description 04/29/2023 Telephone [facility] MEDICINE [address] [place] [address] Marita Wetzel DO [address] [place], [place] [phone] Social History Tobacco Use Types Packs/Day Years [...] Description 12/27/2024 10:15 AM EDT Office Visit [facility] MEDICINE [address] [place] [address] Marita Wetzel DO [address] [place] [address] documented as of this encounter Visit Diagnoses Not on filedocumented in this encounter Additional Health Concerns Assessment Noted Time PHQ-9 Depression Total Score: 0 10/09/19 23 9:31 AM EDT documented as of this encounter Care Teams Service Department Manager Relationship Specialty Start Date End Date Marita Wetzel DO [address] [place] [address] PCP - General Family Medicine 04/21/18 Carmen Becker PharmD [address] [place] [address] Pharmacist Internal Medicine 07/21/23 01/21/24 [facility] 05/22/24 documented as of this encounter
--- OUTSIDE RECORDS SUMMARY | 2024-12-16 11:41 | XMS_ITS | Encounter Summary ---
Author Organization [facility] Address [address] [place] [address] Phone Care Team Providers Care Novelty Candy Maker Name Role Phone Marita Wetzel DO Primary Care Provider Unava ilable Encounter Details Date Type Department Care Team (Late st Contact Info) Description 11/11/2022 Documentation Only [facility] [address] [place] [address] Pauline Aguayo [address] [place] [phone] Social History Tobacco Use Types Packs/Day Years [...] Of [facility] Vascular Access Center [address] [place] [phone] 03/08/2025 12:30 PM EST Scheduled Only [facility] Vascular Access Center [address] [place] [address] documented as of this encounter Visit Diagnoses Not on filedocumented in this encounter Care Teams Novelty Candy Maker Relationship Specialty Start Date End Date Marita Wetzel DO [address] [place] [address] PCP - General Family Medicine 11/14/22 documented as of this encounter
--- OUTSIDE RECORDS SUMMARY | 2024-12-16 11:41 | XMS_ITS | Encounter Summary ---
Author Organization [facility] [place], Address [address] [place] [address] Phone Care Team Providers Care Mail Machine Operator Name Role Phone Marita Wetzel DO Primary Care Provider Unava ilable Encounter Details Date Type Department Care Team (Late Contact Info) Description 12/10/2024 Orders Only [facility] [place] [address] [place] [phone] Bernardo Doty MD [address] [place] [address] [place] [phone] Social History Tobacco Use Types Packs/Day Years [...] Support [facility] Vascular Access Center [address] [place] [address] 03/08/2025 12:30 PM EST Scheduled Only [facility] Vascular Access Center [address] [place] [address] [place] [phone] documented as of this encounter Procedures Procedure Name Priority Date/Time Associated Diagnosis Comments CHEMISTRY Routine 12/10/2024 documented in this encounter Results * [facility] (12/10/2024) Potassium 4.8 3.5 - 5.1 mEq/L [facility] 12/10/2024 12/11/2024 1:2 4 PM EDT Narrative [facility] - 12/11/2024 Unless otherwise specified, test(s) performed at: [facility] [address] [place], [place] [id number] FERRYBOAT CAPTAIN: Dwayne Fuentes M.D. For any questions, please call customer service at FREQUENCY:OTHER Resulting Agency Comment Specimen source: Serum us Bernardo Doty MD LAB BLOOD ORDERABLES Final Resul t [facility] See order comments or contact performing lab Unknown, [place] documented in this encounter Visit Diagnoses Not on filedocumented in this encounter Care Teams Mail Machine Operator Relationship Specialty Start Date End Date Marita Wetzel DO [address] [place] [address] PCP - General Family Medicine 11/14/22 documented as of this encounter
--- OUTSIDE RECORDS SUMMARY | 2024-12-16 11:41 | XMS_ITS | Encounter Summary ---
Author Organization [facility] Address [address] [place] [address] Phone Care Team Providers Care Cabinet Assembler Name Role Phone Marita Wetzel DO Primary Care Provider Unava ilable Encounter Details Date Type Department Care Team (Late st Contact Info) Description 12/09/2022 Documentation Only [facility] Of [address] [place] [phone] Candace Adam PA [address] [place] [address] [place] [phone] Social History Tobacco Use Types Packs/Day Years [...] Services Of [facility] Vascular Access [address] [place] [phone] 03/08/2025 12:30 PM EST Scheduled Only [facility] Vascular Access [address] [place] [phone] documented as of this encounter Visit Diagnoses Not on filedocumented in this encounter Care Teams Cabinet Assembler Relationship Specialty Start Date End Date Marita Wetzel DO [address] [place] [address] PCP - General Family Medicine 11/14/22 documented as of this encounter
--- OUTSIDE RECORDS SUMMARY | 2024-12-16 11:41 | XMS_ITS | Encounter Summary ---
Author Organization [facility] Address [address] [place] [address] Phone Care Team Providers Care Supervisor Process Testing Name Role Phone Marita Wetzel DO Primary Care Provider Unava ilable Encounter Details Date Type Department Care Team (Late st Contact Info) Description 10/06/2023 Documentation Only [facility] Of [address] [place] [phone] Hend[place], [place], [place] [address] [place] [phone] Social History Tobacco Use Types Packs/Day Years [...] [facility] Vascular Access Center [address] [place] [phone] 03/08/2025 12:30 PM EST Scheduled Only [facility] Vascular Access Center [address] [place] [phone] documented as of this encounter Visit Diagnoses Not on filedocumented in this encounter Care Teams Supervisor Process Testing Relationship Specialty Start Date End Date Marita Wetzel DO [address] [place] [address] PCP - General Family Medicine 11/14/22 documented as of this encounter
--- OUTSIDE RECORDS SUMMARY | 2024-12-16 11:41 | XMS_ITS | Encounter Summary ---
Author Organization [facility] [employer] Address [address] [place] [address] Phone Care Team Providers Care Choral Teacher Name Role Phone Marita Wetezl DO Primary Care Provider Unava ilable Encounter Details Date Type Department Care Team (Late st Contact Info) Description 03/18/2023 Documentation Only [facility] [address] [place] [phone] Bernardo Doty MD [address] [place] [address] [place] [address] Social History Tobacco Use Types [...] [facility] [address] [place] [address] 03/08/2025 12:30 PM EST Scheduled Only [facility] [address] [place] [address] documented as of this encounter Visit Diagnoses Not on filedocumented in this encounter Care Teams Choral Teacher Relationship Specialty Start Date End Date Marita Wetzel DO [address] [place] [address] PCP - General Family Medicine 11/14/22 documented as of this encounter
--- OUTSIDE RECORDS SUMMARY | 2024-12-16 11:41 | XMS_ITS | Encounter Summary ---
Author Organization [employer] Address [address] [facility] [address] [place] [address] Care Team Providers Care Indian Trader Name Role Phone Marita Wetzel DO Primary Care Provider + [phone] Reason for Visit * Reason Onset Date Comments Med Refill 06/25/2024 Encounter Details Date Type Department Care Team (Late st Contact Info) Description 06/25/2024 Telephone [facility] [address] [place] [address] Marita Wetzel DO [address] [place], [place] [phone] Med Refill Social History Tobacco Use Types [...] 1 g tablet To be sent to: [facility]/pharmacy [address] [place] [address] *states it was prescribed before documented in this encounter Plan of Treatment Upcoming Encounters Date Type Department Care Team (Late st Contact Info) Description 12/27/2024 10:15 AM EDT Office Visit [facility] [address] [place] [address] Marita Wetzel DO [address] [place] [address] documented as of this encounter Goals Goal [...] documented as of this encounter Care Teams Indian Trader Relationship Specialty Start Date End Date Marita Wetzel DO [address] [place] [address] PCP - General Family Medicine 04/21/18 [facility] 05/22/24 documented as of this encounter
--- OUTSIDE RECORDS SUMMARY | 2024-12-16 11:41 | XMS_ITS | Encounter Summary ---
Author Organization [facility] Address [address] [place] [address] Care Team Providers Care Distribution Center Manager Name Role Phone Marita Wetzel DO Primary Care Provider [phone]- [phone] Encounter Details Date Type Department Care Team (Late st Contact Info) Description 05/30/2024 Lab Requisition [facility] - Main Lab [address] [facility] [phone] Marily Gordillo MD [address] [place] [phone] Chronic embolism and thrombosis of unspecified vein; [...] unspecified documented in this encounter Care Teams Distribution Center Manager Relationship Specialty Start Date End Date Marita Wetzel DO [address] [place], [place] PCP - General 01/09/23 documented as of this encounter
--- OUTSIDE RECORDS SUMMARY | 2024-12-16 11:42 | XMS_ITS | Encounter Summary ---
Author Organization [facility] Address [address] [place] [address] Care Team Providers Care Special Agent Name Role Phone Marita Wetzel Primary Care Provider [phone]- [phone] Encounter Details Date Type Department Care Team (Late st Contact Info) Description 03/01/[address] [facility] - Main Lab [address] [facility] [place] [address] Catalina Burr MD [address] [place], [place] [phone] End stage renal disease (CMS/HCC V24, CMS/HCC [...] (ABNORMAL) Ferritin (03/01/2024 6:56 AM EST) Pathologist [facility] Ferritin 2,736(H) 8 - 252 ng/mL LAB CHEMISTRY METHOD 03/01/2024 11:27 AM EST [facility] Blood Venous blood specimen / Unknown Venipuncture / Unknown 03/01/2024 6:56 AM EST 03/01/2024 9:07 AM EST Catalina Burr MD LAB BLOOD ORDERABLES Final Resul t Performing Organization Address City/[facility]/ZIP Co de Phone Number [facility] [address] [place] [address], [place] [phone] * (ABNORMAL) Iron (03/01/2024 6:56 AM EST) [facility] Iron 29(L) 40 - 150 mcg/dL LAB CHEMISTRY METHOD 03/01/2024 11:22 AM EST [facility] Blood Venous blood specimen / Unknown Venipuncture / Unknown 03/01/2024 6:56 AM EST 03/01/2024 9:07 AM EST us Catalina Burr MD LAB BLOOD ORDERABLES Final Resul t [facility] [address] [place] [address], [place] [phone] * Tacrolimus level (03/01/2024 6:56 AM EST) [facility] Tacrolimus Level 5.2 5.0 - 20.0 ng/mL 03/04/2024 12:28 PM EST [facility] Comment: Additional Information: Toxic Level > [...] developed and the performance characteristics determined by [facility]. This confirmation testing has not been cleared or approved by the FDA. The laboratory is regulated under CLIA as qualified to perform high-complexity testing. This test is used for patient testing purposes. It should not be regarded as investigational or for research. Test performed at [facility], [address] , [place] [address] Ashtyn Leigh MD, PhD - Technical Support Manager Blood Venous blood specimen / Unknown Venipuncture / Unknown 03/01/2024 6:56 AM EST 03/01/2024 9:07 AM EST us Catalina Burr MD LAB BLOOD ORDERABLES Final Resul t [facility] [address] [place] [address] * (ABNORMAL) Renal function panel (03/01/2024 6:56 AM EST) Sodium 140 133 - 145 mmol/L LAB CHEMISTRY METHOD 03/01/2024 11:04 AM [facility] Potassium 3.4(L) 3.5 - 5.5 mmol/L LAB CHEMISTRY METHOD 03/01/2024 11:04 AM [facility] Chloride 107 96 - 110 mmol/L LAB CHEMISTRY METHOD 03/01/2024 11:04 AM [facility] CO2 24 21 - 32 mmol/L LAB CHEMISTRY METHOD 03/01/2024 11:04 AM [facility] Anion Gap 9 3 - 11 LAB CHEMISTRY METHOD 03/01/2024 11:04 AM [facility] Glucose 107(H) 70 - 100 mg/dL LAB CHEMISTRY METHOD 03/01/2024 11:04 AM [facility] BUN 26(H) 5 - 25 mg/dL LAB CHEMISTRY METHOD 03/01/2024 11:04 AM [facility] Creatinine 2.88(H) 0.50 - 1.10 mg/dL LAB CHEMISTRY METHOD 03/01/2024 11:04 AM [facility] eGFR 18(L) >=60 mL/min/1. 73m2 LAB CHEMISTRY METHOD 03/01/2024 11:04 AM [facility] Comment:Calculation based on the Chronic Kidney Disease Epidemiology Collaboration (CKD-EPI) equation refit without adjustment for race. BUN/Creatinine Ratio 9.0 LAB CHEMISTRY METHOD 03/01/2024 11:04 AM [facility] Albumin 2.3(L) 3.2 - 5.0 g/dL LAB CHEMISTRY METHOD 03/01/2024 11:04 AM [facility] Calcium 8.9 8.5 - 10.5 mg/dL LAB CHEMISTRY METHOD 03/01/2024 11:04 AM [facility] Phosphorus 1.9(L) 2.5 - 4.5 mg/dL LAB CHEMISTRY METHOD 03/01/2024 11:04 AM [facility] Blood Venous blood specimen / Unknown Venipuncture / Unknown 03/01/2024 6:56 AM EST 03/01/2024 9:07 AM EST us Catalina Burr MD LAB BLOOD ORDERABLES Final Resul t [facility] [address] [place] [address], * (ABNORMAL) Complete blood count (03/01/2024 6:56 AM EST) [facility] WBC 10.2 4.8 - 10.8 K/mcL LAB HEMETOLOGY METHOD 03/01/2024 10:46 AM [facility] RBC 2.70(L) 3.80 - 4.80 M/mcL LAB HEMETOLOGY METHOD 03/01/2024 10:46 AM [facility] Hemoglobin 7.5(L) 11.5 - 16.0 g/dL LAB HEMETOLOGY METHOD 03/01/2024 10:46 AM [facility] Hematocrit 26.1(L) 35.0 - 47.0 % LAB HEMETOLOGY METHOD 03/01/2024 10:46 AM [facility] MCV 97.8 79.0 - 98.0 FL LAB HEMETOLOGY METHOD 03/01/2024 10:46 AM [facility] MCH 28.1 27.0 - 32.0 pcg LAB HEMETOLOGY METHOD 03/01/2024 10:46 AM [facility] MCHC 28.7(L) 32.0 - 37.0 g/dL LAB HEMETOLOGY METHOD 03/01/2024 10:46 AM [facility] RDW 16.7(H) 11.0 - 15.0 % LAB HEMETOLOGY METHOD 03/01/2024 10:46 AM [facility] Platelets 235 130 - 400 K/mcL LAB HEMETOLOGY METHOD 03/01/2024 10:46 AM [facility] MPV 10.8 7.0 - 11.0 FL LAB HEMETOLOGY METHOD 03/01/2024 10:46 AM [facility] NRBC 0.0 <1.0 % LAB HEMETOLOGY METHOD 03/01/2024 10:46 AM [facility] NRBC Absolute 0.00 <0.10 K/mcL LAB HEMETOLOGY METHOD 03/01/2024 10:46 AM EST [facility] Blood Venous blood specimen / Unknown Venipuncture / Unknown 03/01/2024 6:56 AM EST 03/01/2024 9:07 AM EST us Catalina Burr MD LAB BLOOD ORDERABLES Final Resul t [facility] [address] [place] [address], documented in this encounter Visit Diagnoses Diagnosis End stage renal disease ([facility] V24, [facility] V28) End stage renal disease Type 2 diabetes mellitus without complications ([facility] V24, [facility] V28) documented in this encounter Care Teams Special Agent Relationship Specialty Start Date End Date Marita Wetzel DO [address] [place] [address] PCP - General 01/09/23 documented as of this encounter
--- OUTSIDE RECORDS SUMMARY | 2024-12-16 11:42 | XMS_ITS | Clinical Summary ---
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 43840 mL 12 02/10/20 24 Active predniSONE 5 [...] Orders Only [facility] [address] [address] Bernardo Doty MD 12/10/2024 Orders Only [facility] [address] [address] Bernardo Doty MD 12/08/2024 Treatment [facility] [place], [address] [place] [address] Bernardo Doty MD End stage renal disease; Dependence on renal dialysis 12/08/2024 Orders Only [facility] [address] [address] Srinivas Agrawal MD 12/06/2024 Orders Only [facility] [address] [address] Bernardo Doty MD 12/06/2024 Treatment [facility] [place], [address] [place] [address] Bernardo Doty MD End stage renal disease; Dependence on renal dialysis 12/01/2024 Orders Only [facility] [address] [address] Srinivas Agrawal MD 11/24/2024 Orders Only [facility] [address] [address] Srinivas Agrawal MD 11/22/2024 Treatment [facility] [address] [place] [address] Bernardo Doty MD End stage renal disease; Dependence on renal dialysis 11/19/2024 Treatment [facility] [place], [address] [place] [address] Bernardo Doty MD End stage renal disease; Dependence on renal dialysis 11/17/2024 Orders Only [facility] [address] [address] rSinivas Agrawal MD 11/15/2024 Treatment [facility], [address] [place] [address] Bernardo Doty MD End stage renal disease; Dependence on renal dialysis 11/11/2024 10:30 AM EDT Clinical Support [facility] - [facility] Center [address] [place] [address] [place] [phone] Db Neumann MD Encounter for fitting and adjustment of vascular catheter [Z45.2] (Primary Dx); Chronic kidney disease, Stage V (HCC) [N18.5] 11/10/2024 Orders Only [facility] [address] [address] Srinivas Agrawal MD 11/08/2024 Treatment [facility] [address] [place] [address] Bernardo Doty MD End stage renal disease; Dependence on renal dialysis 11/05/2024 Orders Only [facility] [address] [address] Bernardo Doty MD 11/03/2024 Orders Only [facility] [address] [address] Srinivas Agrawal MD 11/01/2024 Treatment [facility] [address] [place] [address] Bernardo Doty MD End stage renal disease; Dependence on renal dialysis 11/01/2024 Orders Only [facility] [address] [address] Bernardo Doty MD 10/27/2024 Orders Only [facility] [address] [address] Srinivas Agrawal MD 10/25/2024 Orders Only [facility] [address] [address] Bernardo Doty MD 10/25/2024 Treatment [facility] [address] [place] [address] Bernardo Doty MD End stage renal disease; Dependence on renal dialysis 10/20/2024 Orders Only [facility] [address] [address] Srinivas Agrawal MD 10/18/2024 Orders Only [facility] [address] [address] Srinivas Agrawal MD 10/13/2024 9:00 AM EDT Clinical Support [facility] [address] [place] [address] Lakesha Sandoval Encounter for fitting and adjustment of vascular catheter [Z45.2] (Primary Dx); End stage renal disease (HCC) [N18.6] 10/12/2024 Telephone [facility] [address] [place] [phone] Stephany Stevens 10/11/2024 Orders Only [facility] [address] [address] Srinivas Agrawal MD 10/06/2024 Orders Only [facility] [address] [address] Srinivas Agrawal MD 10/04/2024 Orders Only [facility] [address] [address] Srinivas Agrawal MD 10/04/2024 Treatment [facility] [address] [place] [address] Bernardo Dtoy MD End stage renal disease; Dependence on renal dialysis 09/29/2024 Orders Only [facility] [address] [address] Srinivas Agrawal MD 09/27/2024 Orders Only [facility] [address] [address] Srinivas Agrawal MD 09/27/2024 Treatment [facility] [address] [place] [address] Bernardo Doty MD End stage renal disease; Dependence on renal dialysis 09/22/2024 Treatment [facility] [address] [place] [address] Bernardo Doty MD End stage renal disease; Dependence on renal dialysis 09/22/2024 Orders Only [facility] [address] [address] Srinivas Agrawal MD 09/20/2024 Treatment [facility] [address] [place] [address] Bernardo Doty MD End stage renal disease; Dependence on renal dialysis 09/20/2024 Orders Only [facility] [address] [place] [address] Srinivas Agrawal MD 09/16/2024 10:00 AM EDT Clinical Support [facility] [address] [place] [address] Db Neumann MD Encounter for fitting and adjustment of vascular catheter [Z45.2] (Primary Dx); End stage renal disease (HCC) [N18.6] from Last 3 Months Immunizations Immunization Administration [...] Support [facility] Center [address] [place] [address] [place] [address] 03/08/2025 12:30 PM EST Scheduled Only [facility] V[facility] Access [address] [place] [address] Health Maintenance Due Date Last Done Comments [...] 02/14/2021, Additional history exists Diabetes: Hemoglobin A1C 01/06/202510/06/2 025, 07/07/2024, 04/23/2024, Additional history exists Pneumococcal Vaccine: 50+ Ye ars (4 of 4 - PCV20 or PCV21) 05/03/2026 05/03/2021, 01/05/2020, 08/13/2010 Pneumococcal Vaccine: Peds ( 0 to 5 Years) and At-Risk Patients (6 to 49 Years) Discontinued 05/03/2021, 01/05/2020, 08/13/2010 Procedures Procedure Name Priority Date/Time Associated Diagnosis Comments HD KINETICS Routine 12/13/2024 POST CHEMISTRY Routine 12/13/2024 CHEMISTRY Routine 12/13/2024 CHEMISTRY Routine 12/10/2024 IMMUNO [...] 09/20/2024 from Last 3 Months Results * HD KINETICS (12/13/2024) Only the most recent of7 resultswithin the time period is included. Pathologist [facility] % Urea Reduction 75 65 - 80 % [facility] 12/13/2024 12/16/2024 8:2 6 AM EDT Narrative Resulting Agency Comment Specimen source: Plasma us Bernardo Doty MD LAB BLOOD ORDERABLES Final Resul t [facility] See order comments or contact performing lab Unknown, [place] * POST CHEMISTRY (12/13/2024) Only the most recent of7 resultswithin the time period is included. BUN Post Dialysis 17 6 - 19 mg/dL [facility] 12/13/2024 12/16/2024 8:2 6 AM EDT Narrative [facility] - 12/16/2024 Unless otherwise specified, test(s) performed at: [facility], [address] [place], [place] [id number] ANIMAL ANATOMIST: Dwayne Fuentes M.D. For any questions, please call customer service at FREQUENCY:OTHER Resulting Agency Comment Specimen source: Plasma us Bernardo Doty MD LAB BLOOD ORDERABLES Final Resul t Performing Organization Address [facility] de Phone Number [facility] See order comments or contact performing lab Unknown, [place] * (ABNORMAL) [facility] (12/13/2024) Only the most recent of20 resultswithin the time period is included. BUN 68(H) 6 - 19 mg/dL [facility] 12/13/2024 12/14/2024 9:0 7 AM EDT Narrative [facility] - 12/14/2024 Unless otherwise specified, test(s) performed at: [facility], [address] [place] [id number] ANIMAL ANATOMIST: Dwayne Fuentes M.D. For any questions, please call customer service at FREQUENCY:OTHER Resulting Agency Comment Specimen source: Serum us Bernardo Doty MD LAB BLOOD ORDERABLES Final Resul t Performing Organization Address [facility] de Phone Number [facility] See order comments or contact performing lab Unknown, [place] * IMMUNO CHEMISTRY (12/08/2024) Only the most recent of3 resultswithin the time period is included. Hep B Surface Ag Negative Negative [facility] 12/08/2024 12/09/2024 8:2 1 AM EDT Narrative [facility] - 12/09/2024 Unless otherwise specified, test(s) performed at: [facility], [address] [place] [address] ANIMAL ANATOMIST: Dwayne Fuentes M.D. For any questions, please call customer service at FREQUENCY:MONTHLY Resulting Agency Comment Specimen source: Serum Srinivas Agrawal MD LAB BLOOD ORDERABLES Final Result Performing Organization Address City/[facility] Co de Phone Number [facility] See order comments or contact performing lab Unknown, [place] * (ABNORMAL) HEMATOLOGY (12/08/2024) Only the most recent of12 resultswithin the time period is included. Hemoglobin 10.8(L) 12.0 - 16.0 g/dL [facility] Hemoglobin x 3 32.4(L) 36.0 - 48.0 % [facility] 12/08/2024 12/09/2024 8:0 2 AM EDT Narrative [facility] - 12/09/2024 Unless otherwise specified, test(s) performed at: [facility], [address] [place] [address] ANIMAL ANATOMIST: Dwayne Fuentes M.D. For any questions, please call customer service at FREQUENCY:MONTHLY Resulting Agency Comment Specimen source: Blood Srinivas Agrawal MD LAB BLOOD ORDERABLES Final Result Performing Organization Address [facility] Co de Phone Number [facility] See order comments or contact performing lab Unknown, [place] * [facility] Results (12/06/2024) Only the most recent of6 resultswithin the time period is included. Pathologist [facility] WSTDKT/V 2.2 [facility] eKt/V ([place]) 1.04 [facility] nPCR_HD 0.74 [facility] PCR 49.80 [facility] spKt/V (Daugirdas II) 1.21 [facility] eKt/V Gotch 1.03 [facility] spKt/V Gotch 1.21 [facility] ge Center eKdrt/V 1.03 [facility] eNPCR 0.70 [facility] 12/06/2024 12/06/2024 [facility] Ordering Provider LAB BLOOD ORDERABLES Final Result Performing Organization Address City/[facility]/ZIP Co de Phone Number [facility] Center Contact Performing lab Unknown, [place] * (ABNORMAL) SPECIAL CHEMISTRY (10/06/2024) Only the most recent of2 resultswithin the time period is included. Hemoglobin A1C 6.1(H) 4.8 - 5.9 % [facility] 10/06/2024 10/07/2024 11: 36 AM EDT Narrative [facility] - 10/08/2024 Unless otherwise specified, test(s) performed at: [facility], [address] [place], [place] [id number] ANIMAL ANATOMIST: Dwayne Fuentes M.D. For any questions, please call customer service at FREQUENCY:MONTHLY Resulting Agency Comment Specimen source: Blood Srinivas Agrawal MD LAB BLOOD BANK TEST ORDERA BLES Final Result [facility] See order comments or contact performing lab Unknown, [place] from Last 3 Months Insurance [employer] [employer] Medicare Medicare [employer] Care Teams Mill Attendant Relationship Specialty Start Date End Date Marita Wetzel DO [address] [place] [address] PCP - General Family Medicine 11/14/22
--- OUTSIDE RECORDS SUMMARY | 2024-12-16 11:42 | XMS_ITS | Encounter Summary ---
Author Organization Address [address] [place] [address] Care Team Providers Care Employee Communications Coordinator Name Role Phone Marita Wetzel Primary Care Provider +1- [phone] Encounter Details Date Type Department Care Team (Late st Contact Info) Description 04/17/2024 Lab Requisition [facility] - Main Lab [address] [facility] [place] [address] Catalina Burr MD [address] [place] [address] End stage renal disease (CMS/HCC V24, CMS/HCC [...] and the performance characteristics determined by [facility]. This confirmation testing has not been cleared or approved by the FDA. The laboratory is regulated under CLIA as qualified to perform high-complexity testing. This test is used for patient testing purposes. It should not be regarded as investigational or for research. Test performed at [facility], [address] , [place] [address] Ashtyn Leigh MD, PhD - Mortician Supplies Sales Representative Blood Venous blood specimen / Unknown Venipuncture / Unknown 04/17/2024 5:33 AM EST 04/17/2024 9:33 AM EST us Catalina Burr MD LAB BLOOD ORDERABLES Final Resul t [facility] [address] [place] [address] * (ABNORMAL) Reticulocyte count (04/17/2024 5:33 AM EST) Retic Ct Abs 0.050 0.030 - 0.090 M/mcL LAB HEMETOLOGY METHOD 04/17/2024 10:42 AM EST [facility] Retic Ct Pct 1.8(H) 0.7 - 1.7 % LAB HEMETOLOGY METHOD 04/17/2024 10:42 AM EST [facility] Immature Retic Fract 24.7(H) 2.3 [...] t [facility] [address] [place] [address], [place] [phone] * (ABNORMAL) Comprehensive metabolic panel (04/17/2024 5:33 AM EST) Sodium 146(H) 133 - 145 mmol/L LAB CHEMISTRY METHOD 04/17/2024 11:02 AM [facility] Potassium 3.4(L) 3.5 - 5.5 mmol/L LAB CHEMISTRY METHOD 04/17/2024 11:02 AM [facility] Chloride 116(H) 96 - 110 mmol/L LAB CHEMISTRY METHOD 04/17/2024 11:02 AM [facility] CO2 21 21 - 32 mmol/L LAB CHEMISTRY METHOD 04/17/2024 11:02 AM [facility] Anion Gap 9 3 - 11 LAB CHEMISTRY METHOD 04/17/2024 11:02 AM [facility] Glucose 61(L) 70 - 100 mg/dL LAB CHEMISTRY METHOD 04/17/2024 11:02 AM [facility] BUN 48(H) 5 - 25 mg/dL LAB CHEMISTRY METHOD 04/17/2024 11:02 AM [facility] Creatinine 3.71(H) 0.50 - 1.10 mg/dL LAB CHEMISTRY METHOD 04/17/2024 11:02 AM [facility] eGFR 13(L) >=60 mL/min/1. 73m2 LAB CHEMISTRY METHOD 04/17/2024 11:02 AM [facility] Comment:Calculation based on the Chronic Kidney Disease Epidemiology Collaboration (CKD-EPI) equation refit without adjustment for race. BUN/Creatinine Ratio 12.9 LAB CHEMISTRY METHOD 04/17/2024 11:02 AM [facility] Calcium 8.7 8.5 - 10.5 mg/dL LAB CHEMISTRY METHOD 04/17/2024 11:02 AM [facility] AST (SGOT) 8(L) 10 - 42 unit/L LAB CHEMISTRY METHOD 04/17/2024 11:02 AM [facility] ALT (SGPT) 9(L) 10 - 60 unit/L LAB CHEMISTRY METHOD 04/17/2024 11:02 AM [facility] Alkaline Phosphatase 61 42 - 121 unit/L LAB CHEMISTRY METHOD 04/17/2024 11:02 AM [facility] Total Protein 5.6(L) 6.0 - 8.0 g/dL LAB CHEMISTRY METHOD 04/17/2024 11:02 AM [facility] Albumin 2.0(L) 3.2 - 5.0 g/dL LAB CHEMISTRY METHOD 04/17/2024 11:02 AM [facility] Total Bilirubin 0.5 0.0 - 1.4 mg/dL LAB CHEMISTRY METHOD 04/17/2024 11:02 AM [facility] Blood Venous blood specimen / Unknown Venipuncture / Unknown 04/17/2024 5:33 AM EST 04/17/2024 9:33 AM EST us Catalina Burr MD LAB BLOOD ORDERABLES Final Resul t [facility] [address] [place] [address], * (ABNORMAL) Complete blood count (04/17/2024 5:33 AM EST) [facility] WBC 9.3 4.8 - 10.8 K/mcL LAB HEMETOLOGY METHOD 04/17/2024 10:42 AM [facility] RBC 3.10(L) 3.80 - 4.80 M/mcL LAB HEMETOLOGY METHOD 04/17/2024 10:42 AM [facility] Hemoglobin 8.3(L) 11.5 - 16.0 g/dL LAB HEMETOLOGY METHOD 04/17/2024 10:42 AM [facility] Hematocrit 30.3(L) 35.0 - 47.0 % LAB HEMETOLOGY METHOD 04/17/2024 10:42 AM [facility] MCV 98.1(H) 79.0 - 98.0 FL LAB HEMETOLOGY METHOD 04/17/2024 10:42 AM [facility] MCH 26.9(L) 27.0 - 32.0 pcg LAB HEMETOLOGY METHOD 04/17/2024 10:42 AM [facility] MCHC 27.4(L) 32.0 - 37.0 g/dL LAB HEMETOLOGY METHOD 04/17/2024 10:42 AM [facility] RDW 16.9(H) 11.0 - 15.0 % LAB HEMETOLOGY METHOD 04/17/2024 10:42 AM [facility] Platelets 206 130 - 400 K/mcL LAB HEMETOLOGY METHOD 04/17/2024 10:42 AM [facility] MPV 10.1 7.0 - 11.0 FL LAB HEMETOLOGY METHOD 04/17/2024 10:42 AM [facility] NRBC 0.0 <1.0 % LAB HEMETOLOGY METHOD 04/17/2024 10:42 AM EST [facility] NRBC Absolute 0.00 <0.10 K/mcL LAB HEMETOLOGY METHOD 04/17/2024 10:42 AM EST [facility] Blood Venous blood specimen / Unknown Venipuncture / Unknown 04/17/2024 5:33 AM EST 04/17/2024 9:33 AM EST us Catalina Burr MD LAB BLOOD ORDERABLES Final Resul t [facility] [address] [place] [address], documented in this encounter Visit Diagnoses Diagnosis End stage renal disease (CMS/HCC V24, CMS/HCC V28) End stage renal disease Anemia, unspecified documented in this encounter Care Teams Employee Communications Coordinator Relationship Specialty Start Date End Date Marita Wetzel DO [address] [place] [address] PCP - General 01/09/23 documented as of this encounter
--- OUTSIDE RECORDS SUMMARY | 2024-12-16 11:42 | XMS_ITS | Encounter Summary ---
Author Organization [facility] Address [address] [place] [address] Phone Care Team Providers Care Reducing Machine Operator Name Role Phone Marita Wetzel DO Primary Care Provider Unava ilable Encounter Details Date Type Department Care Team (Late st Contact Info) Description 06/12/2023 Documentation Only [facility] [address] [place] [phone] [place], [place], [place] [address] [place] [phone] Social History Tobacco Use Types Packs/Day Years [...] [facility] [address] [place] [phone] 03/08/2025 12:30 PM EST Scheduled Only [facility] [address] [place] [place] [phone] documented as of this encounter Visit Diagnoses Not on filedocumented in this encounter Care Teams Reducing Machine Operator Relationship Specialty Start Date End Date Marita Wetzel DO [address] [place] [address] PCP - General Family Medicine 11/14/22 documented as of this encounter
--- OUTSIDE RECORDS SUMMARY | 2024-12-16 11:42 | XMS_ITS | Encounter Summary ---
Author Organization [facility] Address [address] [place] [address] Phone Care Team Providers Care Spool Tender Name Role Phone Marita Wetzel DO Primary Care Provider Unava ilable Encounter Details Date Type Department Care Team (Late st Contact Info) Description 08/11/2023 Documentation Only [facility] [address] [place] [phone] [place], [place], [place] [address] [place] [phone] Social History Tobacco Use Types Packs/Day Years [...] Support [facility] [address] [place] [phone] 03/08/2025 12:30 PM EST Scheduled Only [facility] [address] [place] [phone] documented as of this encounter Visit Diagnoses Not on filedocumented in this encounter Care Teams Spool Tender Relationship Specialty Start Date End Date Marita Wetzel DO [address] [place] [address] PCP - General Family Medicine 11/14/22 documented as of this encounter
--- OUTSIDE RECORDS SUMMARY | 2024-12-16 11:42 | XMS_ITS | Encounter Summary ---
Author Organization [facility] Address [address] [place] [address] Care Team Providers Care Billing Administrator Name Role Phone Marita Wetzel Primary Care Provider +1- [phone] Encounter Details Date Type Department Care Team (Late st Contact Info) Description 04/20/2024 Lab Requisition [facility] - Main Lab [address] [place] [phone] Marily Gordillo MD [address] [place] [address] Chronic kidney disease, unspecified; Anemia, [...] LAB CHEMISTRY METHOD 04/22/2024 11:50 AM EST [facility] Potassium 3.5 3.5 - 5.5 [...] Resul t [facility] [address] [place] [address], * (ABNORMAL) Complete blood count (04/22/2024 7:09 AM EST) WBC 8.2 4.8 - 10.8 K/mcL LAB HEMETOLOGY METHOD 04/22/2024 10:44 AM [facility] RBC 2.80(L) 3.80 - 4.80 M/[facility] LAB HEMETOLOGY METHOD 04/22/2024 10:44 AM [facility] [...] pcg LAB HEMETOLOGY METHOD 04/22/2024 10:44 AM [facility] MCHC 28.2(L) 32.0 - 37.0 g/dL LAB HEMETOLOGY METHOD 04/22/2024 10:44 AM EST [facility] RDW 16.5(H) 11.0 - [...] Resul t [facility] [address] [place] [address], documented in this encounter Visit Diagnoses Diagnosis Chronic kidney disease, unspecified Anemia, unspecified documented in this encounter Care Teams Billing Administrator Relationship Specialty Start Date End Date Marita Wetzel DO [address] [place] [address] PCP - General 01/09/23 documented as of this encounter
--- OUTSIDE RECORDS SUMMARY | 2024-12-16 11:42 | XMS_ITS | Encounter Summary ---
Author Organization [facility] Address [address] [place] [address] Phone Care Team Providers Care Trolley Wire Installer Name Role Phone Marita Wetzel DO Primary Care Provider Unava ilable Encounter Details Date Type Department Care Team (Late st Contact Info) Description 07/04/2023 Documentation Only [facility] Of [address] [place] [phone] Pauline Aguayo [address] [place] [phone] Social History Tobacco Use Types Packs/Day Years [...] [facility] [address] [place] [phone] 03/08/2025 12:30 PM EST Scheduled Only [facility] [address] [place] [phone] documented as of this encounter Visit Diagnoses Not on filedocumented in this encounter Care Teams Trolley Wire Installer Relationship Specialty Start Date End Date Marita Wetzel DO [address] [place] [address] PCP - General Family Medicine 11/14/22 documented as of this encounter
--- OUTSIDE RECORDS SUMMARY | 2024-12-16 11:42 | XMS_ITS | Encounter Summary ---
Author Organization [employer] Address [address] [facility] [address] [place] [address] Care Team Providers Care Delinquent Tax Collector Name Role Phone Marita Wetzel DO Primary Care Provider + [phone] Reason for Visit * Reason Onset Date Comments Chart Prep 12/16/2024 Encounter Details Date Type Department Care Team ([facility] st Contact Info) Description 12/16/2024 Telephone [facility] [address] [place] [address] Marita Wetzel DO [address] [place] [address] Chart Prep Social History Tobacco Use Types Packs/Day Years [...] Telephone Encounter - Renetta Romo [place] - 12/16/2024 7:48 AM EDT Chart Prep Labs: done Images: done Referrals: appointment pending Vaccines due: Covid, RSV, and Zoster Screenings: colonoscopy, pap smear, eye exam, foot exam, and HIV Screening, Hepatitis C Screening Overdue care gaps: A1c, Glucose, SDOH, PHQ-9, JOCELYN-7, and Disability screen documented in this encounter Plan of Treatment Upcoming Encounters Date Type Department Care Team (Late st Contact Info) Description 12/27/2024 10:15 AM EDT Office Visit [facility] [address] [place] [address] Marita Wetzel DO [address] [place] [address] documented as of this encounter Goals Goal Patient Goal Type Associated Problems Recent Progress Patient-Stated? Author Hemoglobin A1c < 7 Result Component 6.4( 11:38 AM EDT) No Puia, Carmen, PharmD [...] documented as of this encounter Care Teams Delinquent Tax Collector Relationship Specialty Start Date End Date Marita Wetzel DO [address] [place] [address] PCP - General Family Medicine 04/21/18 [facility] 05/22/24 documented as of this encounter
--- OUTSIDE RECORDS SUMMARY | 2024-12-16 11:42 | XMS_ITS | Encounter Summary ---
Author Organization [facility] Address [address] [place] [address] Care Team Providers Care Filbert Grower Name Role Phone Marita Wetzel DO Primary Care Provider +1- [phone] Encounter Details Date Type Department Care Team (Late st Contact Info) Description 04/28/2024 Lab Requisition [facility] - Main Lab [address] [facility] [place] [phone] Marily Gordillo MD [address] [place] [address] Chronic kidney disease, unspecified; Anemia, [...] unspecified documented in this encounter Care Teams Filbert Grower Relationship Specialty Start Date End Date Marita Wetzel DO [address] [place] [address] PCP - General 01/09/23 documented as of this encounter
--- OUTSIDE RECORDS SUMMARY | 2024-12-16 11:42 | XMS_ITS | Encounter Summary ---
Author Organization [facility] Address [address] [place] [address] Phone Care Team Providers Care Inspector And Tester Name Role Phone Marita Wetzel DO Primary Care Provider Unava ilable Encounter Details Date Type Department Care Team (Late st Contact Info) Description 07/29/2023 Documentation Only [facility] [address] [place] [phone] Pauline Aguayo [address] [place] [phone] Social History Tobacco Use Types Packs/Day Years [...] [facility] [address] [phone] 03/08/2025 12:30 PM EST Scheduled Only [facility] [address] [phone] documented as of this encounter Visit Diagnoses Not on filedocumented in this encounter Care Teams Inspector And Tester Relationship Specialty Start Date End Date Marita Wetzel DO [address] [place] [address] PCP - General Family Medicine 11/14/22 documented as of this encounter
--- OUTSIDE RECORDS SUMMARY | 2024-12-16 11:42 | XMS_ITS | Encounter Summary ---
Author Organization [facility] Address [address] [place] [address] Care Team Providers Care Electroencephalographic Technologist Name Role Phone Marita Wetzel DO Primary Care Provider +1- [phone] Encounter Details Date Type Department Care Team (Late st Contact Info) Description 05/21/2024 Lab Requisition [facility] - Main Lab [address] [facility] [place] [phone] Marily Gordillo MD [address] [place] [phone] Chronic embolism and thrombosis of unspecified vein; [...] unspecified documented in this encounter Care Teams Electroencephalographic Technologist Relationship Specialty Start Date End Date Marita Wetzel DO [address] [place], [place] PCP - General 01/09/23 documented as of this encounter
--- OUTSIDE RECORDS SUMMARY | 2024-12-16 11:42 | XMS_ITS | Clinical Summary ---
Author Organization [address] Address [address] [place] [phone] Phone Care Team Providers Care Service Desk Agent Name Role Phone Mary JaneMarita yousif Scottie MARROQUIN Primary Care Provider +1- [phone] Immunizations Name Administration Dates Next Due Moderna [...] METHOD 05/10/2024 11:45 AM [facility] Potassium 3.8 3.5 - 5.5 [...] LAB CHEMISTRY METHOD 05/10/2024 11:45 AM EST [facility] Phosphorus 2.1(L) 2.5 - 4.5 mg/dL LAB CHEMISTRY METHOD 05/10/2024 11:45 AM EST [facility] Blood Venous blood specimen / Unknown Venipuncture / Unknown 05/10/2024 5:50 AM EST 05/10/2024 9:58 AM EST us Marily Gordillo MD LAB BLOOD ORDERABLES Final Resul t [facility] [address] [place] [address], from Last 3 Months or Most Recently Relevant to Health Maintenance Insurance MEDICARE Care Teams Service Desk Agent Relationship Specialty Start Date End Date Marita Wetzel DO [address] [place] [address] PCP - General 01/09/23
--- OUTSIDE RECORDS SUMMARY | 2024-12-16 11:42 | XMS_ITS | Encounter Summary ---
Author Organization [facility] Address [address] [place] [address] Phone Care Team Providers Care Home Health Aid Name Role Phone Marita Wetzel DO Primary Care Provider Unava ilable Encounter Details Date Type Department Care Team (Late st Contact Info) Description 06/25/2022 Documentation Only [facility] [address] [place] [phone] Pauline Aguayo [address] [place] [phone] Social History Tobacco Use Types Packs/Day Years [...] Support [facility] Center [address] [place] [phone] 03/08/2025 12:30 PM EST Scheduled Only [facility] [address] [place] [phone] documented as of this encounter Visit Diagnoses Not on filedocumented in this encounter Care Teams Home Health Aid Relationship Specialty Start Date End Date Marita Wetzel DO [address] [place] [address] PCP - General Family Medicine 11/14/22 documented as of this encounter
--- OUTSIDE RECORDS SUMMARY | 2024-12-16 11:42 | XMS_ITS | Encounter Summary ---
Author Organization [facility] Address [address] [place] [address] Care Team Providers Care Distributor Sales Manager Name Role Phone Marita Wetzel Primary Care Provider +1- [phone] Encounter Details Date Type Department Care Team (Late st Contact Info) Description 04/30/2024 Lab Requisition [facility] - Main Lab [address] [place] [phone] Marily Gordillo MD [address] [place] [address] Chronic embolism and thrombosis of [...] LAB CHEMISTRY METHOD 05/03/2024 10:39 AM EST [facility] Potassium 5.1 3.5 - 5.5 [...] ORDERABLES Final Resul t Performing Organization Address City/[facility]/ZIP Co de Phone Number [facility] [address] [place] [address], * Tacrolimus level (05/03/2024 6:09 AM EST) [...] research. Test performed at [facility], [address] , [place] [address] Ashtyn Leigh MD, PhD - Foam Rubber Molder Blood Venous blood specimen / Unknown Venipuncture / Unknown 05/03/2024 6:09 AM EST 05/03/2024 9:28 AM EST Marily Gordillo MD LAB BLOOD ORDERABLES Final Resul t [facility] [address] [place] [address] documented in this encounter Visit Diagnoses Diagnosis Chronic embolism and thrombosis of unspecified vein Acute kidney failure, unspecified (CMS/HCC V24) Acute kidney failure, unspecified documented in this encounter Care Teams Distributor Sales Manager Relationship Specialty Start Date End Date Marita Wetzel DO [address] [place] [address] PCP - General 01/09/23 documented as of this encounter
--- OUTSIDE RECORDS SUMMARY | 2024-12-16 11:42 | XMS_ITS | Encounter Summary ---
Author Organization [facility] Address [address] [place] [address] Care Team Providers Care Education Coordinator Name Role Phone Marita Wetzel Primary Care Provider +1- [phone] Encounter Details Date Type Department Care Team (Late st Contact Info) Description 05/07/2024 Lab Requisition [facility] - Main Lab [address] [place] [phone] Marily Gordillo MD [address] [place] [address] Chronic embolism and thrombosis of [...] LAB CHEMISTRY METHOD 05/10/2024 11:45 AM EST [facility] Potassium 3.8 3.5 - 5.5 mmol/L LAB CHEMISTRY METHOD 05/10/2024 11:45 AM [facility] Chloride 96 96 - 110 mmol/L LAB CHEMISTRY METHOD 05/10/2024 11:45 AM [facility] CO2 28 21 - 32 mmol/L LAB CHEMISTRY METHOD 05/10/2024 11:45 AM [facility] Anion Gap 11 3 - 11 LAB CHEMISTRY METHOD 05/10/2024 11:45 AM [facility] Glucose 215(H) 70 - 100 mg/dL LAB CHEMISTRY METHOD 05/10/2024 11:45 AM [facility] BUN 45(H) 5 - 25 mg/dL LAB CHEMISTRY METHOD 05/10/2024 11:45 AM [facility] Creatinine 3.47(H) 0.50 - 1.10 mg/dL LAB CHEMISTRY METHOD 05/10/2024 11:45 AM [facility] eGFR 14(L) >=60 mL/min/1. 73m2 LAB CHEMISTRY METHOD 05/10/2024 11:45 AM [facility] Comment:Calculation based on the Chronic Kidney Disease Epidemiology Collaboration (CKD-EPI) equation refit without adjustment for race. BUN/Creatinine Ratio 13.0 LAB CHEMISTRY METHOD 05/10/2024 11:45 AM [facility] Albumin 1.7(L) 3.2 - 5.0 g/dL LAB CHEMISTRY METHOD 05/10/2024 11:45 AM [facility] Calcium 8.4(L) 8.5 - 10.5 mg/dL LAB CHEMISTRY METHOD 05/10/2024 11:45 AM [facility] Phosphorus 2.1(L) 2.5 - 4.5 mg/dL LAB CHEMISTRY METHOD 05/10/2024 11:45 AM [facility] Blood Venous blood specimen / Unknown Venipuncture / Unknown 05/10/2024 5:50 AM EST 05/10/2024 9:58 AM EST Marily Gordillo MD LAB BLOOD ORDERABLES Final Resul t Performing Organization Address City/[facility]/ZIP Co de Phone Number [facility] [address] [place] [address], [place] [phone] * Tacrolimus level (05/10/2024 5:50 AM EST) [...] performed at [facility], [address] , [place], [place] [id number] Ashtyn Leigh MD, PhD - Vp Biology Blood Venous blood specimen / Unknown Venipuncture / Unknown 05/10/2024 5:50 AM EST 05/10/2024 9:58 AM EST Marily Gordillo MD LAB BLOOD ORDERABLES Final Resul t [facility] [address] [place] [address] documented in this encounter Visit Diagnoses Diagnosis Chronic embolism and thrombosis of unspecified vein Acute kidney failure, unspecified (CMS/[facility] V24) Acute kidney failure, unspecified documented in this encounter Care Teams Education Coordinator Relationship Specialty Start Date End Date Marita Wetzel DO [address] [place] [address] PCP - General 01/09/23 documented as of this encounter
--- OUTSIDE RECORDS SUMMARY | 2024-12-16 11:42 | XMS_ITS | Encounter Summary ---
Author Organization [facility] Address [address] [place] [address] Care Team Providers Care College Athlete Name Role Phone Marita Wetzel DO Primary Care Provider +1- [phone] Encounter Details Date Type Department Care Team (Late st Contact Info) Description 04/29/2024 Lab Requisition [facility] - Main Lab [address] [facility] [place] [phone] Marily Gordillo MD [address] [place] [phone] Chronic embolism and thrombosis of unspecified vein; [...] unspecified documented in this encounter Care Teams College Athlete Relationship Specialty Start Date End Date Marita Wetzel DO [address] [place], [place] PCP - General 01/09/23 documented as of this encounter
--- OUTSIDE RECORDS SUMMARY | 2024-12-16 11:42 | XMS_ITS | Encounter Summary ---
Author Organization [facility] Address [address] [place] [address] Care Team Providers Care Assembly Machine Operator Name Role Phone Marita Wetzel Primary Care Provider +1- [phone] Encounter Details Date Type Department Care Team (Late st Contact Info) Description 03/30/2024 Lab Requisition [facility] - Main Lab 299 [facility] [place] [address] Catalina Burr MD [address] [place] [address] Chronic embolism and thrombosis of unspecified vein; [...] LAB CHEMISTRY METHOD 03/31/2024 12:06 PM EST [facility] Blood Venous blood specimen / Unknown Venipuncture / Unknown 03/31/2024 9:23 AM EST 03/31/2024 11:25 AM EST Catalina Burr MD LAB BLOOD ORDERABLES Final Resul t Performing Organization Address [facility]/ZIP Co de Phone Number [facility] [address] [place] [address], [place] [phone] * (ABNORMAL) Ferritin (03/31/2024 9:23 AM EST) Ferritin 6,203(H) 8 - 252 ng/mL LAB CHEMISTRY METHOD 03/31/2024 12:10 PM EST [facility] Blood Venous blood specimen / Unknown Venipuncture / Unknown 03/31/2024 9:23 AM EST 03/31/2024 11:25 AM EST Catalina Burr MD LAB BLOOD ORDERABLES Final Resul t Performing Organization Address [facility]/ZIP Co de Phone Number [facility] [address] [place] [address], [place] [phone] documented in this encounter Visit Diagnoses Diagnosis Chronic embolism and thrombosis of unspecified vein Acute kidney failure, unspecified (CMS/HCC V24) Acute kidney failure, unspecified documented in this encounter Care Teams Assembly Machine Operator Relationship Specialty Start Date End Date Marita Wetzel DO [address] [place] [address] PCP - General 01/09/23 documented as of this encounter
--- OUTSIDE RECORDS SUMMARY | 2024-12-16 11:42 | XMS_ITS | Encounter Summary ---
Author Organization [facility] Address [address] [place] [address] Care Team Providers Care Portable Power Tool Repairer Name Role Phone Marita Wetzel Primary Care Provider +1- [phone] Encounter Details Date Type Department Care Team (Late st Contact Info) Description 04/30/2024 Lab Requisition [facility] - Main Lab [address] [place] [phone] Marily Gordillo MD [address] [place] [phone] Anemia, unspecified; Chronic embolism and thrombosis of [...] ORDERABLES Final Resul t Performing Organization Address [facility]/ZIP Co de Phone Number [facility] [address] [place] [address], [place] [phone] * (ABNORMAL) Ferritin (05/03/2024 6:09 AM EST) Ferritin 2,737(H) 8 - 252 ng/mL LAB CHEMISTRY METHOD 05/03/2024 10:59 AM EST [facility] Blood Venous blood specimen / Unknown Venipuncture / Unknown 05/03/2024 6:09 AM EST 05/03/2024 9:29 AM EST us Marily Gordillo MD LAB BLOOD ORDERABLES Final Resul t Performing Organization Address City/[facility]/ZIP Co de Phone Number [facility] [address] [place] [address], [place] [phone] documented in this encounter Visit Diagnoses Diagnosis Anemia, unspecified Chronic embolism and thrombosis of unspecified vein Acute kidney failure, unspecified (CMS/HCC V24) Acute kidney failure, unspecified documented in this encounter Care Teams Portable Power Tool Repairer Relationship Specialty Start Date End Date Marita Wetzel DO [address] [place] [address] PCP - General 01/09/23 documented as of this encounter
--- OUTSIDE RECORDS SUMMARY | 2024-12-16 11:42 | XMS_ITS | Encounter Summary ---
Author Organization [facility] Address [address] [place] [address] Care Team Providers Care Contract Assistant Name Role Phone Marita Wetzel DO Primary Care Provider +1- [phone] Encounter Details Date Type Department Care Team (Late st Contact Info) Description 05/12/2024 Lab Requisition [facility] - Main Lab 299 [facility] [employer] [place] [phone] Marily Gordillo MD [address] [place] [address] Chronic kidney disease, unspecified; Anemia, [...] unspecified documented in this encounter Care Teams Contract Assistant Relationship Specialty Start Date End Date Marita Wetzel DO [address] [place] [address] PCP - General 01/09/23 documented as of this encounter
--- OUTSIDE RECORDS SUMMARY | 2024-12-16 11:42 | XMS_ITS | Encounter Summary ---
Author Organization [facility] Address [address] [place] [address] Care Team Providers Care Concrete Paver Name Role Phone Marita Wetzel DO Primary Care Provider +1- [phone] Encounter Details Date Type Department Care Team (Late st Contact Info) Description 05/15/2024 Lab Requisition [facility] - Main Lab 299 [facility] [employer] [place] [phone] Marily Gordillo MD [address] [place] [phone] Chronic embolism and thrombosis of unspecified vein; [...] unspecified documented in this encounter Care Teams Concrete Paver Relationship Specialty Start Date End Date Marita Wetzel DO [address] [place], [place] PCP - General 01/09/23 documented as of this encounter
--- OUTSIDE RECORDS SUMMARY | 2024-12-16 11:42 | XMS_ITS | Encounter Summary ---
Author Organization [facility], Address [address] [place] [address] Phone Care Team Providers Care Tightening Machine Operator Name Role Phone Marita Wetzel DO Primary Care Provider Unava ilable Encounter Details Date Type Department Care Team (Late st Contact Info) Description 10/17/2023 Documentation Only [facility] [address] [place] [phone] [place], [place] [address] [place] [phone] Social History Tobacco Use Types Packs/Day Years [...] [facility] [address] [place] [phone] 03/08/2025 12:30 PM EST Scheduled Only [facility] Center [address] [place] [phone] documented as of this encounter Visit Diagnoses Not on filedocumented in this encounter Care Teams Tightening Machine Operator Relationship Specialty Start Date End Date Marita Wetzel DO [address] [place] [address] PCP - General Family Medicine 11/14/22 documented as of this encounter
--- OUTSIDE RECORDS SUMMARY | 2024-12-16 11:42 | XMS_ITS | Encounter Summary ---
Author Organization [facility] Address [address] [place] [address] Care Team Providers Care Checker Dump Grounds Name Role Phone Marita Wetzel DO Primary Care Provider +1- [phone] Encounter Details Date Type Department Care Team (Late st Contact Info) Description 04/28/2024 Lab Requisition [facility] - Main Lab 299 [facility] [place] [phone] Marily Gordillo MD [address] [place] [address] Chronic kidney disease, unspecified; Anemia, [...] unspecified documented in this encounter Care Teams Checker Dump Grounds Relationship Specialty Start Date End Date Marita Wetzel DO [address] [place] [address] PCP - General 01/09/23 documented as of this encounter
--- OUTSIDE RECORDS SUMMARY | 2024-12-16 11:42 | XMS_ITS | Encounter Summary ---
Author Organization [facility] Address [address] [place] [address] Care Team Providers Care Water Treatment Plant Operator Name Role Phone Marita Wetzel Primary Care Provider +1- [phone] Encounter Details Date Type Department Care Team (Late st Contact Info) Description 04/17/2024 Lab Requisition [facility] - Main Lab 299 [facility] [place] [phone] Marily Gordillo MD [address] [place] [address] Chronic embolism and thrombosis of [...] - 20.0 ng/mL 04/22/2024 11:22 AM EST [facility] Comment: Additional [...] developed and the performance characteristics determined by [facility]. This confirmation testing has not been cleared or approved by the FDA. The laboratory is regulated under CLIA as qualified to perform high-complexity testing. This test is used for patient testing purposes. It should not be regarded as investigational or for research. Test performed at [facility], [address] [place], [place] [address] Ashtyn Leigh MD, PhD - Cloud Automation Tester Blood Venous blood specimen / Unknown Venipuncture / Unknown 04/19/2024 6:21 AM EST 04/19/2024 8:33 AM EST us Marily Gordillo MD LAB BLOOD ORDERABLES Final Resul t [facility] [address] [place] [address] * (ABNORMAL) Renal function panel (04/19/2024 6:21 AM EST) Pathologist [facility] Sodium 144 133 - 145 mmol/L LAB CHEMISTRY METHOD 04/19/2024 9:[address] [facility] Potassium 3.3(L) 3.5 - 5.5 mmol/L LAB CHEMISTRY METHOD 04/19/2024 9:[address] [facility] Chloride 114(H) 96 - 110 mmol/L LAB CHEMISTRY METHOD 04/19/2024 9:[address] [facility] CO2 22 21 - 32 mmol/L LAB CHEMISTRY METHOD 04/19/2024 9:42 AM [facility] Anion Gap 8 3 - 11 LAB CHEMISTRY METHOD 04/19/2024 9:42 AM [facility] Glucose 177(H) 70 - 100 mg/dL LAB CHEMISTRY METHOD 04/19/2024 9:42 AM [facility] BUN 42(H) 5 - 25 mg/dL LAB CHEMISTRY METHOD 04/19/2024 9:42 AM [facility] Creatinine 3.65(H) 0.50 - 1.10 mg/dL LAB CHEMISTRY METHOD 04/19/2024 9:42 AM [facility] eGFR 13(L) >=60 mL/min/1. 73m2 LAB CHEMISTRY METHOD 04/19/2024 9:42 AM [facility] Comment:Calculation based on the Chronic Kidney Disease Epidemiology Collaboration (CKD-EPI) equation refit without adjustment for race. BUN/Creatinine Ratio 11.5 LAB CHEMISTRY METHOD 04/19/2024 9:42 AM [facility] Albumin 2.0(L) 3.2 - 5.0 g/dL LAB CHEMISTRY METHOD 04/19/2024 9:42 AM [facility] Calcium 8.5 8.5 - 10.5 mg/dL LAB CHEMISTRY METHOD 04/19/2024 9:42 AM [facility] Phosphorus 2.6 2.5 - 4.5 mg/dL LAB CHEMISTRY METHOD 04/19/2024 9:42 AM [facility] Blood Venous blood specimen / Unknown Venipuncture / Unknown 04/19/2024 6:21 AM EST 04/19/2024 8:33 AM EST us Marily Gordillo MD LAB BLOOD ORDERABLES Final Resul t [facility] [address] [place] [address], * (ABNORMAL) Complete blood count (04/19/2024 6:21 AM EST) [facility] WBC 12.0(H) 4.8 - 10.8 K/mcL LAB HEMETOLOGY METHOD 04/19/2024 9:26 AM [facility] RBC 2.80(L) 3.80 - 4.80 M/mcL LAB HEMETOLOGY METHOD 04/19/2024 9:26 AM [facility] Hemoglobin 7.6(L) 11.5 - 16.0 g/dL LAB HEMETOLOGY METHOD 04/19/2024 9:26 AM [facility] Hematocrit 27.3(L) 35.0 - 47.0 % LAB HEMETOLOGY METHOD 04/19/2024 9:26 AM [facility] MCV 98.2(H) 79.0 - 98.0 FL LAB HEMETOLOGY METHOD 04/19/2024 9:26 AM [facility] MCH 27.3 27.0 - 32.0 pcg LAB HEMETOLOGY METHOD 04/19/2024 9:26 AM [facility] MCHC 27.8(L) 32.0 - 37.0 g/dL LAB HEMETOLOGY METHOD 04/19/2024 9:26 AM [facility] RDW 16.6(H) 11.0 - 15.0 % LAB HEMETOLOGY METHOD 04/19/2024 9:26 AM [facility] Platelets 230 130 - 400 K/mcL LAB HEMETOLOGY METHOD 04/19/2024 9:26 AM [facility] MPV 10.9 7.0 - 11.0 FL LAB HEMETOLOGY METHOD 04/19/2024 9:26 AM [facility] NRBC 0.0 <1.0 % LAB HEMETOLOGY METHOD 04/19/2024 9:26 AM [facility] NRBC Absolute 0.00 <0.10 K/mcL LAB HEMETOLOGY METHOD 04/19/2024 9:[address] [facility] Blood Venous blood specimen / Unknown Venipuncture / Unknown 04/19/2024 6:21 AM EST 04/19/2024 8:33 AM EST us Marily Gordillo MD LAB BLOOD ORDERABLES Final Resul t [facility] [address] [place] [address], documented in this encounter Visit Diagnoses Diagnosis Chronic embolism and thrombosis of unspecified vein Acute kidney failure, unspecified (CMS/HCC V24) Acute kidney failure, unspecified documented in this encounter Care Teams Water Treatment Plant Operator Relationship Specialty Start Date End Date Marita Wetzel DO [address] [place] [address] PCP - General 01/09/23 documented as of this encounter
--- OUTSIDE RECORDS SUMMARY | 2024-12-16 11:42 | XMS_ITS | Encounter Summary ---
Author Organization [facility] Address [address] [place] [address] Care Team Providers Care Chemical Applicator Name Role Phone Marita Wetzel Primary Care Provider +1- [phone] Encounter Details Date Type Department Care Team (Late st Contact Info) Description 03/29/2024 Lab Requisition [facility] - Main Lab 299 [facility] [place] [address] Catalina Burr MD [address] [place] [address] End stage renal disease (CMS/HCC V24, CMS/HCC [...] 6:53 AM EST End stage renal disease (CMS/[facility]) documented in this encounter Results * Tacrolimus level (03/29/2024 6:53 AM EST) Tacrolimus Level 6.8 5.0 - 20.0 ng/mL 03/31/2024 12:22 PM EST [facility] Comment: Additional Information: Toxic Level > [...] [facility], [address] , [place] [address] Ashtyn Leigh MD, PhD - Gun Stock Checker Blood Venous blood specimen / Unknown Venipuncture / Unknown 03/29/2024 6:53 AM EST 03/29/2024 8:32 AM EST us Catalina Burr MD LAB BLOOD ORDERABLES Final Resul t [facility] [address] [place] [address] * (ABNORMAL) Renal function panel (03/29/2024 6:53 AM EST) Sodium 140 133 - 145 mmol/L LAB CHEMISTRY METHOD 03/29/2024 10:07 AM EST [facility] Potassium 3.9 3.5 - 5.5 mmol/L LAB CHEMISTRY METHOD 03/29/2024 10:07 AM EST [facility] Chloride 109 96 - 110 mmol/L LAB CHEMISTRY METHOD 03/29/2024 10:07 AM [facility] CO2 20(L) 21 - 32 mmol/L LAB CHEMISTRY METHOD 03/29/2024 10:07 AM [facility] Anion Gap 11 3 - 11 LAB CHEMISTRY METHOD 03/29/2024 10:07 AM [facility] Glucose 146(H) 70 - 100 mg/dL LAB CHEMISTRY METHOD 03/29/2024 10:07 AM [facility] BUN 42(H) 5 - 25 mg/dL LAB CHEMISTRY METHOD 03/29/2024 10:07 AM [facility] Creatinine 3.47(H) 0.50 - 1.10 mg/dL LAB CHEMISTRY METHOD 03/29/2024 10:07 AM [facility] eGFR 14(L) >=60 mL/min/1. 73m2 LAB CHEMISTRY METHOD 03/29/2024 10:07 AM [facility] Comment:Calculation based on the Chronic Kidney Disease Epidemiology Collaboration (CKD-EPI) equation refit without adjustment for race. BUN/Creatinine Ratio 12.1 LAB CHEMISTRY METHOD 03/29/2024 10:07 AM [facility] Albumin 2.0(L) 3.2 - 5.0 g/dL LAB CHEMISTRY METHOD 03/29/2024 10:07 AM [facility] Calcium 8.8 8.5 - 10.5 mg/dL LAB CHEMISTRY METHOD 03/29/2024 10:07 AM [facility] Phosphorus 2.5 2.5 - 4.5 mg/dL LAB CHEMISTRY METHOD 03/29/2024 10:07 AM [facility] Blood Venous blood specimen / Unknown Venipuncture / Unknown 03/29/2024 6:53 AM EST 03/29/2024 8:32 AM EST us Catalina Burr MD LAB BLOOD ORDERABLES Final Resul t [facility] [address] [place] [address], [place] [phone] * (ABNORMAL) Complete blood count (03/29/2024 6:53 AM EST) WBC 11.0(H) 4.8 - 10.8 K/mcL LAB HEMETOLOGY METHOD 03/29/2024 9:47 AM [facility] RBC 2.80(L) 3.80 - 4.80 M/[facility] LAB HEMETOLOGY METHOD 03/29/2024 9:47 AM [facility] Hemoglobin 7.7(L) 11.5 - 16.0 g/dL LAB HEMETOLOGY METHOD 03/29/2024 9:47 AM [facility] Hematocrit 27.0(L) 35.0 - 47.0 % LAB HEMETOLOGY METHOD 03/29/2024 9:47 AM [facility] MCV 97.8 79.0 - 98.0 FL LAB HEMETOLOGY METHOD 03/29/2024 9:47 AM [facility] MCH 27.9 27.0 - 32.0 pcg LAB HEMETOLOGY METHOD 03/29/2024 9:47 AM [facility] MCHC 28.5(L) 32.0 - 37.0 g/dL LAB HEMETOLOGY METHOD 03/29/2024 9:47 AM [facility] RDW 17.5(H) 11.0 - 15.0 % LAB HEMETOLOGY METHOD 03/29/2024 9:47 AM [facility] Platelets 301 130 - 400 K/[facility] LAB HEMETOLOGY METHOD 03/29/2024 9:47 AM [facility] MPV 10.3 7.0 - 11.0 FL LAB HEMETOLOGY METHOD 03/29/2024 9:47 AM [facility] NRBC 0.0 <1.0 % LAB HEMETOLOGY METHOD 03/29/2024 9:47 AM [facility] NRBC Absolute 0.00 <0.10 K/mcL LAB HEMETOLOGY METHOD 03/29/2024 9:47 AM [facility] Blood Venous blood specimen / Unknown Venipuncture / Unknown 03/29/2024 6:53 AM EST 03/29/2024 8:32 AM EST us Catalina Burr MD LAB BLOOD ORDERABLES Final Resul t [facility] [address] [place] [address], documented in this encounter Visit Diagnoses Diagnosis End stage renal disease (CMS/HCC V24, CMS/HCC V28) End stage renal disease documented in this encounter Care Teams Chemical Applicator Relationship Specialty Start Date End Date Marita Wetzel DO [address] [place] [address] PCP - General 01/09/23 documented as of this encounter
--- OUTSIDE RECORDS SUMMARY | 2024-12-16 11:42 | XMS_ITS | Encounter Summary ---
Author Organization [facility] Address [address] [place] [address] Phone Care Team Providers Care Spring Repairer Helper Hand Name Role Phone Marita Wetzel DO Primary Care Provider Unava ilable Encounter Details Date Type Department Care Team (Late st Contact Info) Description 09/11/2023 Documentation Only [facility] [address] [place] [phone] Pauline Aguayo [address] [place] [phone] Social History Tobacco Use Types Packs/Day Years [...] Support [facility] Vascular Access Center [address] [place] [address] 03/08/2025 12:30 PM EST Scheduled Only [facility] V[facility] Access Center [address] [place] [phone] documented as of this encounter Visit Diagnoses Not on filedocumented in this encounter Care Teams Spring Repairer Helper Hand Relationship Specialty Start Date End Date Marita Wetzel DO [address] [place] [address] PCP - General Family Medicine 11/14/22 documented as of this encounter
--- OUTSIDE RECORDS SUMMARY | 2024-12-16 11:42 | XMS_ITS | Encounter Summary ---
Author Organization [facility] Address [address] [place] [address] Phone Care Team Providers Care Rental Manager Name Role Phone Marita Wetzel DO Primary Care Provider Unava ilable Encounter Details Date Type Department Care Team (Late st Contact Info) Description 10/24/2023 Documentation Only [facility] Of [address] [place] [phone] [place], [place], [place] [address] [place] [phone] Social History Tobacco Use Types Packs/Day Years [...] [facility] Center [address] [place] [phone] 03/08/2025 12:30 PM EST Scheduled Only [facility] Vascular Access Center [address] [place] [phone] documented as of this encounter Visit Diagnoses Not on filedocumented in this encounter Care Teams Rental Manager Relationship Specialty Start Date End Date Marita Wetzel DO [address] [place] [address] PCP - General Family Medicine 11/14/22 documented as of this encounter
--- OUTSIDE RECORDS SUMMARY | 2024-12-16 11:42 | XMS_ITS | Encounter Summary ---
Author Organization [facility] Address [address] [place] [address] Phone Care Team Providers Care Temperature Regulator Name Role Phone Marita Wetzel DO Primary Care Provider Unava ilable Encounter Details Date Type Department Care Team (Late st Contact Info) Description 09/12/2023 Documentation Only [facility] Of [address] [place] [phone] [place], [place], [place] [address] [place] [phone] Social History Tobacco Use Types Packs/Day Years [...] [facility] Vascular Access Center [address] [place] [phone] 03/08/2025 12:30 PM EST Scheduled Only [facility] Vascular Access Center [address] [place] [phone] documented as of this encounter Visit Diagnoses Not on filedocumented in this encounter Care Teams Temperature Regulator Relationship Specialty Start Date End Date Marita Wetzel DO [address] [place] [address] PCP - General Family Medicine 11/14/22 documented as of this encounter
--- OUTSIDE RECORDS SUMMARY | 2024-12-16 11:42 | XMS_ITS | Encounter Summary ---
Author Organization [facility] Address [address] [place] [address] Care Team Providers Care Scullion Chief Name Role Phone Marita Wetzel Primary Care Provider +1- [phone] Encounter Details Date Type Department Care Team (Late st Contact Info) Description 04/02/2024 Lab Requisition [facility] - Main Lab 299 [facility] [place] [phone] Marily Gordillo MD [address] [place] [address] Chronic embolism and thrombosis of [...] - 20.0 ng/mL 04/07/2024 4:26 PM EST [facility] Comment: Additional Information: Toxic Level [...] developed and the performance characteristics determined by [facility]. This confirmation testing has not been cleared or approved by the FDA. The laboratory is regulated under CLIA as qualified to perform high-complexity testing. This test is used for patient testing purposes. It should not be regarded as investigational or for research. Test performed at [facility], [address], [place] [address] Ashtyn Leigh MD, PhD - Facilities Manager Blood Venous blood specimen / Unknown Venipuncture / Unknown 04/05/2024 6:56 AM EST 04/05/2024 10:25 AM EST us Marily Gordillo MD LAB BLOOD ORDERABLES Final Resul t [facility] [address] [place] [address] * (ABNORMAL) Renal function panel (04/05/2024 6:56 AM EST) Pathologist [facility] Sodium 138 133 - 145 mmol/L LAB CHEMISTRY METHOD 04/05/2024 11:52 AM EST [facility] Potassium 5.0 3.5 - 5.5 mmol/L LAB CHEMISTRY METHOD 04/05/2024 11:52 AM EST [facility] Chloride 107 96 - 110 mmol/L LAB CHEMISTRY METHOD 04/05/2024 11:52 AM EST [facility] CO2 20(L) 21 [...] [facility] Comment:Calculation based on the Chronic Kidney Disease Epidemiology Collaboration (CKD-EPI) equation refit without adjustment for race. BUN/Creatinine Ratio 12.6 LAB CHEMISTRY METHOD 04/05/2024 11:52 AM [facility] Albumin 1.9(L) 3.2 - 5.0 g/dL LAB CHEMISTRY METHOD 04/05/2024 11:52 AM [facility] Calcium [...] t [facility] [address] [place] [address], * (ABNORMAL) Complete blood count (04/05/2024 6:56 AM EST) [facility] WBC 9.2 4.8 - 10.8 K/mcL [...] pcg LAB HEMETOLOGY METHOD 04/05/2024 10:42 AM [facility] MCHC 27.4(L) 32.0 - [...] LAB HEMETOLOGY METHOD 04/05/2024 10:42 AM EST [facility] Blood Venous blood specimen / Unknown Venipuncture / Unknown 04/05/2024 6:56 AM EST 04/05/2024 10:26 AM EST us Marily Gordillo MD LAB BLOOD ORDERABLES Final Resul t [facility] [address] [place] [address], [place] [phone] documented in this encounter Visit Diagnoses Diagnosis Chronic embolism and thrombosis of unspecified vein Acute kidney failure, unspecified (CMS/HCC V24) Acute kidney failure, unspecified documented in this encounter Care Teams Scullion Chief Relationship Specialty Start Date End Date Marita Wetzel DO [address] [place] [address] PCP - General 01/09/23 documented as of this encounter
--- OUTSIDE RECORDS SUMMARY | 2024-12-16 11:42 | XMS_ITS | Encounter Summary ---
Author Organization [facility] Address [address] [place] [address] Care Team Providers Care Greenhouse Transplanter Name Role Phone Marita Wetzel Primary Care Provider +1- [phone] Encounter Details Date Type Department Care Team (Late st Contact Info) Description 04/23/2024 Lab Requisition [facility] - Main Lab [address] [place] [phone] Marily Gordillo MD [address] [place] [address] Chronic embolism and thrombosis of [...] LAB CHEMISTRY METHOD 04/26/2024 9:11 AM EST [facility] Potassium 3.4(L) 3.5 - 5.5 mmol/L LAB CHEMISTRY METHOD 04/26/2024 9:11 AM EST [facility] Chloride 109 96 - 110 [...] [facility] Comment:Calculation based on the [...] LAB BLOOD ORDERABLES Final Resul t [facility] [address] [place] [address], documented in this encounter Visit Diagnoses Diagnosis Chronic embolism and thrombosis of unspecified vein Acute kidney failure, unspecified (CMS/HCC V24) Acute kidney failure, unspecified documented in this encounter Care Teams Greenhouse Transplanter Relationship Specialty Start Date End Date Marita Wetzel DO [address] [place] [address] PCP - General 01/09/23 documented as of this encounter
--- OUTSIDE RECORDS SUMMARY | 2024-12-16 11:42 | XMS_ITS | Encounter Summary ---
Author Organization [facility] Address [address] [place] [address] Phone Care Team Providers Care Lapeler Name Role Phone Marita Wetzel DO Primary Care Provider Unava ilable Encounter Details Date Type Department Care Team (Late st Contact Info) Description 08/28/2023 Documentation Only [facility] [address] [place] [phone] [place], [place], [place] [address] [place] [phone] Social History Tobacco Use Types Packs/Day Years [...] Services Of [facility] [address] [place] [phone] 03/08/2025 12:30 PM EST Scheduled Only [facility] [address] [place] [phone] documented as of this encounter Visit Diagnoses Not on filedocumented in this encounter Care Teams Lapeler Relationship Specialty Start Date End Date Marita Wetzel DO [address] [place] [address] PCP - General Family Medicine 11/14/22 documented as of this encounter
--- OUTSIDE RECORDS SUMMARY | 2024-12-16 11:42 | XMS_ITS | Encounter Summary ---
Author Organization [facility] Address [address] [place] [address] Care Team Providers Care Field Operator Name Role Phone Marita Wetzel DO Primary Care Provider +1- [phone] Encounter Details Date Type Department Care Team (Late st Contact Info) Description 2024 Lab Requisition [facility] - Main Lab [address] [facility] [phone] Marily Gordillo MD [address] [place] [address] Chronic kidney disease, unspecified; Anemia, [...] unspecified documented in this encounter Care Teams Field Operator Relationship Specialty Start Date End Date Marita Wetzel DO [address] [place] [address] PCP - General 01/09/23 documented as of this encounter
--- OUTSIDE RECORDS SUMMARY | 2024-12-16 11:42 | XMS_ITS | Encounter Summary ---
Author Organization [facility] Address [address] [place] [address] Phone Care Team Providers Care Sports Apparel Internship Name Role Phone Marita Wetzel DO Primary Care Provider Unava ilable Encounter Details Date Type Department Care Team (Late st Contact Info) Description 06/23/2023 Documentation Only [facility] [address] [place] [phone] [place], [place] [address] [place] [phone] Social History Tobacco Use Types Packs/Day Years [...] Support [facility] - Vascular Access Center [address] [place] [phone] 03/08/2025 12:30 PM EST Scheduled Only [facility] Center [address] [place] [phone] documented as of this encounter Visit Diagnoses Not on filedocumented in this encounter Care Teams Sports Apparel Internship Relationship Specialty Start Date End Date Marita Wetzel DO [address] [place] [address] PCP - General Family Medicine 11/14/22 documented as of this encounter
--- OUTSIDE RECORDS SUMMARY | 2024-12-16 11:42 | XMS_ITS | Encounter Summary ---
Author Organization [facility] Address [address] [place] [address] Phone Care Team Providers Care Electrician Outside Name Role Phone Marita Wetzel DO Primary Care Provider Unava ilable Encounter Details Date Type Department Care Team (Late st Contact Info) Description 06/14/2022 Documentation Only [facility] [address] [place] [phone] Candace Adam PA [address] [place] [address] [place] [phone] Social History Tobacco Use Types Packs/Day Years [...] Services Of [facility] Vascular Access [address] [place] [phone] 03/08/2025 12:30 PM EST Scheduled Only [facility] V[facility] Access [address] [place] [phone] documented as of this encounter Visit Diagnoses Not on filedocumented in this encounter Care Teams Electrician Outside Relationship Specialty Start Date End Date Marita Wetzel DO [address] [place] [address] PCP - General Family Medicine 11/14/22 documented as of this encounter
--- OUTSIDE RECORDS SUMMARY | 2024-12-16 11:42 | XMS_ITS | Encounter Summary ---
Author Organization [facility] Address [address] [place] [address] Care Team Providers Care Senior Project Accountant Name Role Phone Marita Wetzel DO Primary Care Provider +1- [phone] Encounter Details Date Type Department Care Team (Late st Contact Info) Description 04/10/2024 Lab Requisition [facility] - Main Lab 299 [facility] [place] [phone] Marily Gordillo MD [address] [place] [phone] Chronic embolism and thrombosis of unspecified vein; [...] unspecified documented in this encounter Care Teams Senior Project Accountant Relationship Specialty Start Date End Date Marita Wetzel DO [address] [place], [place] PCP - General 01/09/23 documented as of this encounter
--- OUTSIDE RECORDS SUMMARY | 2024-12-16 11:42 | XMS_ITS | Encounter Summary ---
Author Organization [facility] Address [address] [place] [address] Phone Care Team Providers Care Head Of Acquisitions Name Role Phone Marita Wetzel DO Primary Care Provider Unava ilable Encounter Details Date Type Department Care Team (Late st Contact Info) Description 08/27/2023 Documentation Only [facility] [address] [place] [phone] [place], [place], [place] [address] [place] [phone] Social History Tobacco Use Types Packs/Day Years [...] [facility] Center [address] [place] [place] [phone] 03/08/2025 12:30 PM EST Scheduled Only [facility] [address] [place] [phone] documented as of this encounter Visit Diagnoses Not on filedocumented in this encounter Care Teams Head Of Acquisitions Relationship Specialty Start Date End Date aMrita Wetzel DO [address] [place] [address] PCP - General Family Medicine 11/14/22 documented as of this encounter
--- OUTSIDE RECORDS SUMMARY | 2024-12-16 11:43 | XMS_ITS | Encounter Summary ---
Author Organization [facility] Address [address] [place] [address] Care Team Providers Care Chain Pegger Name Role Phone Mary JaneMarita yousif Primary Care Provider +1- [phone] Encounter Details Date Type Department Care Team (Late st Contact Info) Description 03/05/[address] [facility] - Main Lab [address] [facility] [place] [address] Catalina Burr MD [address] [place] [address] Chronic embolism and thrombosis of unspecified vein; [...] - 20.0 ng/mL 03/10/2024 1:48 PM EST [facility] Comment: Additional Information: Toxic Level > [...] performance characteristics determined by [facility]. This confirmation testing has not been cleared or approved by the FDA. The laboratory is regulated under CLIA as qualified to perform high-complexity testing. This test is used for patient testing purposes. It should not be regarded as investigational or for research. Test performed at [facility], [address], [place], [place] [id number] Ashtyn Leigh MD, PhD - Business Area Manager Blood Venous blood specimen / Unknown Venipuncture / Unknown 03/08/2024 6:29 AM EST 03/08/2024 7:46 AM EST us Catalina Burr MD LAB BLOOD ORDERABLES Final Resul t [facility] [address] [address] * (ABNORMAL) Renal function panel (03/08/2024 6:29 AM EST) Sodium 139 133 - 145 mmol/L LAB CHEMISTRY METHOD 03/08/2024 8:58 AM EST [facility] Potassium 4.5 3.5 - 5.5 mmol/L LAB CHEMISTRY METHOD 03/08/2024 8:58 AM [facility] Chloride 108 96 - 110 mmol/L LAB CHEMISTRY METHOD 03/08/2024 8:58 AM [facility] CO2 20(L) 21 - 32 mmol/L LAB CHEMISTRY METHOD 03/08/2024 8:58 AM [facility] Anion Gap 11 3 - 11 LAB CHEMISTRY METHOD 03/08/2024 8:58 AM [facility] Glucose 93 70 - 100 mg/dL LAB CHEMISTRY METHOD 03/08/2024 8:58 AM [facility] BUN 35(H) 5 - 25 mg/dL LAB CHEMISTRY METHOD 03/08/2024 8:58 AM [facility] Creatinine 3.99(H) 0.50 - 1.10 mg/dL LAB CHEMISTRY METHOD 03/08/2024 8:58 AM [facility] eGFR 12(L) >=60 mL/min/1. 73m2 LAB CHEMISTRY METHOD 03/08/2024 8:58 AM [facility] Comment:Calculation based on the Chronic Kidney Disease Epidemiology Collaboration (CKD-EPI) equation refit without adjustment for race. BUN/Creatinine Ratio 8.8 LAB CHEMISTRY METHOD 03/08/2024 8:58 AM [facility] Albumin 2.3(L) 3.2 - 5.0 g/dL LAB CHEMISTRY METHOD 03/08/2024 8:58 AM [facility] Calcium 9.0 8.5 - 10.5 mg/dL LAB CHEMISTRY METHOD 03/08/2024 8:58 AM [facility] Phosphorus 3.2 2.5 - 4.5 mg/dL LAB CHEMISTRY METHOD 03/08/2024 8:58 AM [facility] Blood Venous blood specimen / Unknown Venipuncture / Unknown 03/08/2024 6:29 AM EST 03/08/2024 7:46 AM EST Catalina Burr MD LAB BLOOD ORDERABLES Final Resul t [facility] [address] [place] [address], * (ABNORMAL) Complete blood count (03/08/2024 6:29 AM EST) WBC 9.8 4.8 - 10.8 K/mcL LAB HEMETOLOGY METHOD 03/08/2024 8:10 AM EST [facility] RBC 2.90(L) 3.80 - 4.80 M/mcL LAB HEMETOLOGY METHOD 03/08/2024 8:10 AM EST [facility] Hemoglobin 7.9(L) 11.5 - 16.0 g/dL LAB HEMETOLOGY METHOD 03/08/2024 8:10 AM EST [facility] Hematocrit 28.5(L) 35.0 - 47.0 % LAB HEMETOLOGY METHOD 03/08/2024 8:10 AM EST [facility] MCV 99.3(H) 79.0 - 98.0 FL LAB HEMETOLOGY METHOD 03/08/2024 8:10 AM EST [facility] MCH 27.5 27.0 - 32.0 pcg LAB HEMETOLOGY METHOD 03/08/2024 8:10 AM [facility] MCHC 27.7(L) 32.0 - 37.0 g/dL LAB HEMETOLOGY METHOD 03/08/2024 8:10 AM [facility] RDW 17.2(H) 11.0 - 15.0 % LAB HEMETOLOGY METHOD 03/08/2024 8:10 AM [facility] Platelets 299 130 - 400 K/mcL LAB HEMETOLOGY METHOD 03/08/2024 8:10 AM [facility] MPV 11.5(H) 7.0 - 11.0 FL LAB HEMETOLOGY METHOD 03/08/2024 8:10 AM EST [facility] NRBC 0.0 <1.0 % LAB HEMETOLOGY METHOD 03/08/2024 8:10 AM EST [facility] NRBC Absolute 0.00 <0.10 K/mcL LAB HEMETOLOGY METHOD 03/08/2024 8:10 AM EST [facility] Blood Venous blood specimen / Unknown Venipuncture / Unknown 03/08/2024 6:29 AM EST 03/08/2024 7:46 AM EST us Catalina Burr MD LAB BLOOD ORDERABLES Final Resul t [facility] [address] [place] [address], [place] [phone] documented in this encounter Visit Diagnoses Diagnosis Chronic embolism and thrombosis of unspecified vein Acute kidney failure, unspecified (CMS/HCC V24) Acute kidney failure, unspecified Type 2 diabetes mellitus without complications (CMS/HCC V24, CMS/HCC V28) documented in this encounter Care Teams Chain Pegger Relationship Specialty Start Date End Date Mraita Wetzel DO [address] [place] [address] PCP - General 01/09/23 documented as of this encounter
--- OUTSIDE RECORDS SUMMARY | 2024-12-16 11:43 | XMS_ITS | Encounter Summary ---
Author Organization [facility] Address [address] [place] [address] Care Team Providers Care Central Aisle Cashier Name Role Phone Mary JaneMarita yousif Primary Care Provider +1- [phone] Encounter Details Date Type Department Care Team (Late st Contact Info) Description 03/12/2024 Lab Requisition [facility] - Main Lab 299 [facility] [place] [address] Catalina Burr MD [address] [place], [place] [phone] Chronic embolism and thrombosis of unspecified vein; [...] - 20.0 ng/mL 03/17/2024 1:34 PM EST [facility] Comment: Additional Information: Toxic [...] investigational or for research. Test performed at [facility], [address], [place] [address] Ashtyn Leigh MD, PhD - Real Estate Closing Coordinator Blood Venous blood specimen / Unknown Venipuncture / Unknown 03/15/2024 8:20 AM EST 03/15/2024 10:20 AM EST Catalina Burr MD LAB BLOOD ORDERABLES Final Resul t [facility] [address] [place] [address] * (ABNORMAL) Renal function panel (03/15/2024 8:20 AM EST) Pathologist [facility] Sodium 139 133 - 145 mmol/L LAB CHEMISTRY METHOD 03/15/2024 11:31 AM EST [facility] Potassium 5.6(H) 3.5 - 5.5 mmol/L LAB CHEMISTRY METHOD 03/15/2024 11:31 AM EST [facility] Chloride 108 96 - 110 mmol/L LAB CHEMISTRY METHOD 03/15/2024 11:31 AM EST [facility] CO2 19(L) 21 - 32 mmol/L LAB CHEMISTRY METHOD 03/15/2024 11:31 AM [facility] Anion Gap 12(H) 3 - 11 LAB CHEMISTRY METHOD 03/15/2024 11:31 AM [facility] Glucose 105(H) 70 - 100 mg/dL LAB CHEMISTRY METHOD 03/15/2024 11:31 AM [facility] BUN 36(H) 5 - 25 mg/dL LAB CHEMISTRY METHOD 03/15/2024 11:31 AM [facility] Creatinine 3.97(H) 0.50 - 1.10 mg/dL LAB CHEMISTRY METHOD 03/15/2024 11:31 AM [facility] eGFR 12(L) >=60 mL/min/1. 73m2 LAB CHEMISTRY METHOD 03/15/2024 11:31 AM [facility] Comment:Calculation based on the Chronic Kidney Disease Epidemiology Collaboration (CKD-EPI) equation refit without adjustment for race. BUN/Creatinine Ratio 9.1 LAB CHEMISTRY METHOD 03/15/2024 11:31 AM [facility] Albumin 2.6(L) 3.2 - 5.0 g/dL LAB CHEMISTRY METHOD 03/15/2024 11:31 AM [facility] Calcium 9.5 8.5 - 10.5 mg/dL LAB CHEMISTRY METHOD 03/15/2024 11:31 AM [facility] Phosphorus 4.0 2.5 - 4.5 mg/dL LAB CHEMISTRY METHOD 03/15/2024 11:31 AM [facility] Blood Venous blood specimen / Unknown Venipuncture / Unknown 03/15/2024 8:20 AM EST 03/15/2024 10:16 AM EST us Catalina Burr MD LAB BLOOD ORDERABLES Final Resul t [facility] [address] [place] [address], [place] [phone] documented in this encounter Visit Diagnoses Diagnosis Chronic embolism and thrombosis of unspecified vein Acute kidney failure, unspecified (CMS/[facility] V24) Acute kidney failure, unspecified Type 2 diabetes mellitus without complications ([facility] V24, CMS/[facility] V28) documented in this encounter Care Teams Central Aisle Cashier Relationship Specialty Start Date End Date Marita Wetzel DO [address] [place] [address] PCP - General 01/09/23 documented as of this encounter
--- OUTSIDE RECORDS SUMMARY | 2024-12-16 11:43 | XMS_ITS | Encounter Summary ---
Author Organization [facility] Address [address] [place] [address] Care Team Providers Care Psychiatric Social Worker Supervisor Name Role Phone Mary JaneMarita oyusif Primary Care Provider +1- [phone] Encounter Details Date Type Department Care Team (Late st Contact Info) Description 03/19/2024 Lab Requisition [facility] - Main Lab [address] [facility] [place] [address] Catalina Burr MD [address] [place] [address] Chronic embolism and thrombosis of unspecified vein; [...] - 20.0 ng/mL 03/24/2024 1:11 PM EST [facility] Comment: Additional Information: Toxic Level > [...] developed and the performance characteristics determined by [facility]. This confirmation testing has not been cleared or approved by the FDA. The laboratory is regulated under CLIA as qualified to perform high-complexity testing. This test is used for patient testing purposes. It should not be regarded as investigational or for research. Test performed at [facility], [address], [place], [place] [id number] Ashtyn Leigh MD, PhD - Resume Specialist Blood Venous blood specimen / Unknown Venipuncture / Unknown 03/22/2024 6:50 AM EST 03/22/2024 8:05 AM EST us Catalina Burr MD LAB BLOOD ORDERABLES Final Resul t [facility] [address] [place] [address] * (ABNORMAL) Renal function panel (03/22/2024 6:50 AM EST) Sodium 138 133 - 145 mmol/L LAB CHEMISTRY METHOD 03/22/2024 8:55 AM EST [facility] Potassium 4.6 3.5 - 5.5 mmol/L LAB CHEMISTRY METHOD 03/22/2024 8:55 AM [facility] Chloride 107 96 - 110 mmol/L LAB CHEMISTRY METHOD 03/22/2024 8:55 AM [facility] CO2 20(L) 21 - 32 mmol/L LAB CHEMISTRY METHOD 03/22/2024 8:55 AM [facility] Anion Gap 11 3 - 11 LAB CHEMISTRY METHOD 03/22/2024 8:55 AM [facility] Glucose 158(H) 70 - 100 mg/dL LAB CHEMISTRY METHOD 03/22/2024 8:55 AM [facility] BUN 51(H) 5 - 25 mg/dL LAB CHEMISTRY METHOD 03/22/2024 8:55 AM [facility] Creatinine 4.91(H) 0.50 - 1.10 mg/dL LAB CHEMISTRY METHOD 03/22/2024 8:55 AM [facility] eGFR 9(L) >=60 mL/min/1. 73m2 LAB CHEMISTRY METHOD 03/22/2024 8:55 AM [facility] Comment:Calculation based on the Chronic Kidney Disease Epidemiology Collaboration (CKD-EPI) equation refit without adjustment for race. BUN/Creatinine Ratio 10.4 LAB CHEMISTRY METHOD 03/22/2024 8:55 AM [facility] Albumin 2.1(L) 3.2 - 5.0 g/dL LAB CHEMISTRY METHOD 03/22/2024 8:55 AM [facility] Calcium 9.0 8.5 - 10.5 mg/dL LAB CHEMISTRY METHOD 03/22/2024 8:55 AM [facility] Phosphorus 3.4 2.5 - 4.5 mg/dL LAB CHEMISTRY METHOD 03/22/2024 8:55 AM [facility] Blood Venous blood specimen / Unknown Venipuncture / Unknown 03/22/2024 6:50 AM EST 03/22/2024 8:05 AM EST Catalina Burr MD LAB BLOOD ORDERABLES Final Resul t [facility] [address] [place] [address], * (ABNORMAL) Complete blood count (03/22/2024 6:50 AM EST) WBC 10.4 4.8 - 10.8 K/mcL LAB HEMETOLOGY METHOD 03/22/2024 8:32 AM EST [facility] RBC 2.80(L) 3.80 - 4.80 M/mcL LAB HEMETOLOGY METHOD 03/22/2024 8:32 AM [facility] Hemoglobin 7.9(L) 11.5 - 16.0 g/dL LAB HEMETOLOGY METHOD 03/22/2024 8:32 AM [facility] Hematocrit 27.8(L) 35.0 - 47.0 % LAB HEMETOLOGY METHOD 03/22/2024 8:32 AM [facility] MCV 98.6(H) 79.0 - 98.0 FL LAB HEMETOLOGY METHOD 03/22/2024 8:32 AM [facility] MCH 28.0 27.0 - 32.0 pcg LAB HEMETOLOGY METHOD 03/22/2024 8:32 AM [facility] MCHC 28.4(L) 32.0 - 37.0 g/dL LAB HEMETOLOGY METHOD 03/22/2024 8:32 AM [facility] RDW 17.8(H) 11.0 - 15.0 % LAB HEMETOLOGY METHOD 03/22/2024 8:32 AM [facility] Platelets 218 130 - 400 K/mcL LAB HEMETOLOGY METHOD 03/22/2024 8:32 AM [facility] MPV 10.7 7.0 - 11.0 FL LAB HEMETOLOGY METHOD 03/22/2024 8:32 AM EST [facility] NRBC 0.0 <1.0 % LAB HEMETOLOGY METHOD 03/22/2024 8:32 AM EST [facility] NRBC Absolute 0.00 <0.10 K/mcL LAB HEMETOLOGY METHOD 03/22/2024 8:32 AM EST [facility] Blood Venous blood specimen / Unknown Venipuncture / Unknown 03/22/2024 6:50 AM EST 03/22/2024 8:05 AM EST us Catalina Burr MD LAB BLOOD ORDERABLES Final Resul t [facility] [address] [place] [address], [place] [phone] documented in this encounter Visit Diagnoses Diagnosis Chronic embolism and thrombosis of unspecified vein Acute kidney failure, unspecified (CMS/HCC V24) Acute kidney failure, unspecified Type 2 diabetes mellitus without complications (CMS/HCC V24, CMS/HCC V28) documented in this encounter Care Teams Psychiatric Social Worker Supervisor Relationship Specialty Start Date End Date Marita Wetzel DO [address] [place] [address] PCP - General 01/09/23 documented as of this encounter
--- OUTSIDE RECORDS SUMMARY | 2024-12-16 11:43 | XMS_ITS | Encounter Summary ---
Author Organization [facility] Address [address] [place] [address] Care Team Providers Care Follow Up Specialist Name Role Phone Mary JaneMarita yousif Primary Care Provider +1- [phone] Encounter Details Date Type Department Care Team (Late st Contact Info) Description 02/24/2024 Lab Requisition [facility] - Main Lab 299 [facility] [place] [address] Norbert Lopez MD [address] [facility] [address] [facility] [address] Encounter for other specified prophylactic [...] Travel phlebotomy fee (02/24/2024 12:45 PM EST) [facility] TRAVEL PHLEBOTOMY FEE Completed 02/24/2024 2:01 PM EST [facility] Blood Venous blood specimen / Unknown Venipuncture / Unknown 02/24/2024 12:45 PM EST 02/24/2024 1:29 PM EST Norbert Lopez MD LAB BLOOD ORDERABLES Final Resul t Performing Organization Address [facility] Co de Phone Number [facility] [address] [place] [address], [place] [phone] * (ABNORMAL) Heparin and low molecular weight anti Xa level (02/24/2024 12:45 PM EST) [facility] Heparin Anti-Xa 0.28(L) 0.30 - [...] ORDERABLES Final Resul t Performing Organization Address [facility]/ZIP Co de Phone Number [facility] [address] [place] [address], [place] [phone] * (ABNORMAL) Basic metabolic panel (02/24/2024 12:45 PM EST) [facility] Sodium 137 133 - 145 mmol/L LAB CHEMISTRY METHOD 02/24/2024 3:10 PM [facility] Potassium 3.7 3.5 - 5.5 [...] PM [facility] Comment:Calculation based on the [...] Resul t [facility] [address] [place] [address], * (ABNORMAL) Complete blood count (02/24/2024 12:45 PM EST) [facility] WBC 11.3(H) 4.8 - 10.8 [...] Resul t [facility] [address] [place] [address], documented in this encounter Visit Diagnoses Diagnosis Encounter for other specified prophylactic measures Acute kidney failure, unspecified (CMS/HCC V24) Acute kidney failure, unspecified documented in this encounter Care Teams Follow Up Specialist Relationship Specialty Start Date End Date Marita Wetzel DO [address] [place] [address] PCP - General 01/09/23 documented as of this encounter
--- OUTSIDE RECORDS SUMMARY | 2024-12-16 11:43 | XMS_ITS | Encounter Summary ---
Author Organization [facility] Address [address] [place] [address] Care Team Providers Care Distance Learning Technician Name Role Phone Marita Wetzel DO Primary Care Provider +1- [phone] Encounter Details Date Type Department Care Team (Late st Contact Info) Description 03/15/2024 Lab Requisition [facility] - Main Lab [address] [facility] [place] [phone] Catalina Burr MD [address] [place] [address] Acute kidney failure, unspecified (CMS/HCC V24); Chronic [...] vein documented in this encounter Care Teams Distance Learning Technician Relationship Specialty Start Date End Date Marita Wetzel DO [address] [place], [place] PCP - General 01/09/23 documented as of this encounter
--- OUTSIDE RECORDS SUMMARY | 2024-12-16 11:43 | XMS_ITS | Encounter Summary ---
Author Organization [facility] Address [address] [place] [address] Care Team Providers Care Structural Test Engineer Name Role Phone Marita Wetzel Primary Care Provider +1- [phone] Encounter Details Date Type Department Care Team (Late st Contact Info) Description 02/25/2024 Lab Requisition [facility] - Main Lab [address] [facility] [place] [address] Catalina Burr MD [address] [place] [address] Chronic embolism and thrombosis of unspecified vein; [...] Travel phlebotomy fee (02/25/2024 6:30 AM EST) [facility] TRAVEL PHLEBOTOMY FEE Completed 02/25/2024 11:01 AM EST [facility] Blood Venous blood specimen / Unknown Venipuncture / Unknown 02/25/2024 6:30 AM EST 02/25/2024 10:25 AM EST Catalina Burr MD LAB BLOOD ORDERABLES Final Resul t Performing Organization Address [facility] de Phone Number [facility] [address] [place] [address], * (ABNORMAL) Tacrolimus level (02/25/2024 6:30 AM EST) Tacrolimus Level 3.8(L) 5.0 - 20.0 ng/mL 02/28/2024 12:37 PM EST [facility] Comment: Additional Information: Toxic [...] developed and the performance characteristics determined by [facility]. This confirmation testing has not been cleared or approved by the FDA. The laboratory is regulated under CLIA as qualified to perform high-complexity testing. This test is used for patient testing purposes. It should not be regarded as investigational or for research. Test performed at [facility], [address], [place], [place] [id number] Ashtyn Leigh MD, PhD - Cash Analyst Blood Venous blood specimen / Unknown Venipuncture / Unknown 02/25/2024 6:30 AM EST 02/25/2024 10:25 AM EST Catalina Burr MD LAB BLOOD ORDERABLES Final Resul t Performing Organization Address City/[facility]/ZIP Co de Phone Number [facility] [address] [place], [place] [phone] documented in this encounter Visit Diagnoses Diagnosis Chronic embolism and thrombosis of unspecified vein Acute kidney failure, unspecified (CMS/[facility] V24) Acute kidney failure, unspecified documented in this encounter Care Teams Structural Test Engineer Relationship Specialty Start Date End Date Marita Wetzel DO [address] [place] [address] PCP - General 01/09/23 documented as of this encounter
== END 2024-12-16 10:52 | disposition home or self-care (01) ==
LOC: HO.HPS 10:22
PROVIDERS: PCP Family Medicine; Visit Provider Hospitalist
DX: R91.8 Other nonspecific abnormal finding of lung field (principal); A43.9 Nocardiosis, unspecified; J18.9 Pneumonia, unspecified organism; J90 Pleural effusion, not elsewhere classified
CPT/HCPCS: 99214; G2211

== ENCOUNTER → 2024-12-16 10:21 | Outpatient (BNVA) | payer MEDICARE, OTHER, SELFPAY | PROVIDERS: PCP Family Medicine; Visit Provider Hospitalist | DX: R91.8 Other nonspecific abnormal finding of lung field (principal); A43.9 Nocardiosis, unspecified; J18.9 Pneumonia, unspecified organism; J90 Pleural effusion, not elsewhere classified | CPT/HCPCS: 99212 ==

== ENCOUNTER 2025-01-06 08:36 | Outpatient (REF) | payer MEDICARE, OTHER, SELFPAY ==
--- NOTE | ~2025-01-06 | XR_ITS ---
CLINICAL HISTORY: M25.529 - Pain in unspecified elbow Radiographs of the left elbow, 3 views Comparison: 11/27/24 Findings: No fracture or dislocation. Previously seen calcification versus ossific fragment measuring less than 2 mm adjacent to the coronoid process is less apparent than on the prior study; calcification is favored over ossific fragment. Mild degenerative change. No joint effusion. Vascular calcifications including adjacent to the medial epicondyle and posterior to distal humerus. Soft tissue swelling. Impression: No acute fracture. Mild degenerative change. This document has been electronically signed by: Kaitlynn Marcus MD on 01/07/2025 15:14:53
--- OUTSIDE RECORDS SUMMARY | 2025-01-07 09:12 | XMS_ITS | Encounter Summary ---
Author Organization [employer] Address [address] [place] [address] [address] [place] [address] Care Team Providers Care Digital Marketing Coordinator Name Role Phone Marita Wetzel DO Primary Care Provider +1- [phone] Carmen Becker PharmD Unavailable Encounter Details Date Type Department Care Team (Late st Contact Info) Description 12/11/[address] [facility] [address] [place] [address] Heather Nesbitt RN [address] [place] [address] Social History Tobacco Use Types Packs/Day Years [...] documented as of this encounter Care Teams Digital Marketing Coordinator Relationship Specialty Start Date End Date Marita Wetzel DO [address] [place] [address] PCP - General Family Medicine 04/21/18 Carmen Becker PharmD [address] [place] [address] Pharmacist Internal Medicine 07/21/23 01/21/24 [facility] 05/22/24 documented as of this encounter
--- OUTSIDE RECORDS SUMMARY | 2025-01-07 09:12 | XMS_ITS | Encounter Summary ---
Author Organization [employer] Address [address] [facility] [address] [place] [address] Care Team Providers Care Decorative Cutting Machine Tender Name Role Phone Marita Wetzel DO Primary Care Provider [phone] Carmen Becker PharmD Unavailable [phone] Encounter Details Date Type Department Care Team ([facility] st Contact Info) Description 10/14/2022 Abstract [facility] [address] [place] [address] Marita Wetzel DO [address] [place] [address] Social History Tobacco Use Types Packs/Day Years [...] documented as of this encounter Care Teams Decorative Cutting Machine Tender Relationship Specialty Start Date End Date Marita Wetzel DO [address] [place] [address] PCP - General Family Medicine 04/21/18 Carmen Becker PharmD [address] [place] [address] Pharmacist Internal Medicine 07/21/23 01/21/24 [facility] 05/22/24 documented as of this encounter
--- OUTSIDE RECORDS SUMMARY | 2025-01-07 09:12 | XMS_ITS | Encounter Summary ---
Author Organization [employer] Address [address] [facility] [address] [place] [address] Care Team Providers Care Burner Shaft Name Role Phone DevendraMarita perez Primary Care Provider + [phone] Encounter Details Date Type Department Care Team ([facility] st Contact Info) Description 12/08/2024 Orders Only [facility] [address] [place] [address] Cherry Landa MD [address] [place] [address] Social History Tobacco Use Types Packs/Day Years [...] documented as of this encounter Care Teams Burner Shaft Relationship Specialty Start Date End Date Marita Wetzel DO [address] [place] [address] PCP - General Family Medicine 04/21/18 [facility] 05/22/24 documented as of this encounter
--- OUTSIDE RECORDS SUMMARY | 2025-01-07 09:12 | XMS_ITS | Clinical Summary ---
Author Organization [facility] Address [address] [facility] [address] [place] [address] Phone Care Team Providers Care Cupola Tapper Helper Name Role Phone Bernardo Doty MD Unavailable Marita Wetzel DO Primary Care Provider [phone] Allergies Active Allergy Reactions Criticality Noted Date [...] mg by mouth daily. 08/26/2021 Active cloNIDine ([id number] ) 0.2 mg/[address] 1 patch [...] problem Hypercholesterolemia 05/14/2013 Overview (06/10/2014): Elevated cholesterol Immunizations Immunization Administration Dates Next Due Hepatitis [...] 08/09/2022, 04/1 04/2022, 07/18/2022, Additional history exists MAMMOGRAM 07/11/2024 07/11/2022, 06/20, 07/09/2021, Additional history exists INFLUENZA VACCINE (#1) 2024 , 02/14/2021, 01/28/2020, Additional history exists COVID-19 VACCINE ( - 2024- season) 2024 02/01/2022, 06/22/2020, 05/25/2020 CREATININE LEVEL 05/03/2025 05/03/2024, 11/26/2021 POTASSIUM LEVEL [...] Procedure Name Priority Date/Time Associated Diagnosis Comments COMPREHENSIVE METABOLIC PANEL Routine 05/03/2024 3:27 PM [...] Relevant to Health Maintenance Results * (ABNORMAL) Comprehensive metabolic panel (05/03/2024 3:27 PM EST) SODIUM 135 133 - 146 mmol/L [facility] POTASSIUM 5.9(H) 3.3 - 5.1 mmol/L [facility] CHLORIDE 96 96 - 108 mmol/L [facility] CO2 27 21 - 35 mmol/L [facility] BUN 45(H) 6 - 19 mg/dL [facility] CREATININE 3.40(H) 0.5 - 1.5 mg/dL [facility] GLUCOSE 186(H) 70 - 99 mg/dL [facility] ALBUMIN 2.6(L) 3.9 - 4.8 g/dL [facility] TOTAL PROTEIN 6.2(L) 6.5 - 8.0 g/dL [facility] CALCIUM 9.0 8.4 - 10.3 mg/dL [facility] ALKALINE PHOSPHATASE 74 39 - 117 U/L [facility] TOTAL BILIRUBIN <0.2 0.0 - 1.2 mg/dL [facility] AST 9 0 - 37 U/L [facility] ALT 7 0 - 40 U/L [facility] GLOBULIN 3.6 1 - 4.8 g/dL [facility] EGFR 15(L) >59 mL/min/1.7 3m2 [facility] Comment:Estimated glomerular filtration rate calculated using the CKD-EPI refit equation. ANION GAP 18 10 - 20 mmol/L [facility] Blood 05/03/2024 3:27 PM EST 05/03/2024 8:39 PM EST us Twila CRUZ LAB BLOOD ORDERABLES Final Resu lt [address] [address] * Hepatitis C antibody, qualitative (11/26/2021 4:32 PM EDT) HCV Nonreactive Nonreactive [facility] Comment: 11/26/2021 4:32 PM EDT 11/26/2021 5:00 PM EDT us Manny Addison MD, PhD LAB BLOOD ORDERABLES Final Result [address] [address] * (ABNORMAL) Hemoglobin A1c (11/26/2021 4:32 PM EDT) HEMOGLOBIN A1C 7.8(H) 4.2 - 5.6 % [facility] Comment: HbA1c levels 5.7-6.4% represent [...] Final Result Performing Organization Address [facility] de Phone Number [address] [address] * (ABNORMAL) Lipid panel (11/26/2021 4:32 PM EDT) CHOLESTEROL 157 <200 mg/dL [facility] TRIGLYCERIDES 214(H) 35 - 150 mg/dL [facility] HDL 26(L) 40 - 80 mg/dL [facility] CALCULATED LDL 88 50 - 129 mg/dL [facility] VLDL 43(H) <31 mg/dL [facility] CARDIAC RISK RATIO 6.0(H) 0.0 - 4.0 [facility] 11/26/2021 4:32 PM EDT 11/26/2021 5:00 PM EDT Manny Addison MD, PhD LAB BLOOD ORDERABLES Final Result Performing Organization Address [facility] Co de Phone Number [address] [place] [address] from Last 3 Months or Most Recently Relevant to Health Maintenance Insurance MEDICARE PART A & B [employer] [facility] [place] [place] Address: [address] [address] MEDICARE PART A & B [employer] [facility] [place] Address: [address] [address] MEDICARE PART A & B [facility] [place] Address: [address] [address] MEDICARE PART A & B FOR LIFE MEDICARE SUPPLEMENT MEDICARE PART A & B FOR LIFE [facility]IC[facility] [place] [place] Address: [address] [address] MEDICARE PART A & B FOR LIFE MEDICARE SUPPLEMENT MEDICARE PART A & B Care Teams Cupola Tapper Helper Relationship Specialty Start Date End Date DamariMarita [address] [place] [address] PCP - General Family Medicine 03/28/22 Bernardo Doty MD [address] [address] Nephrology 11/13/21 Additional Source Comments The information contained in this document represents components of the legal health record. It is not the complete legal health record.[facility]
--- OUTSIDE RECORDS SUMMARY | 2025-01-07 09:12 | XMS_ITS | Encounter Summary ---
Author Organization [employer] Address [address] [facility] 7t [place] [address] Care Team Providers Care Campus President Name Role Phone Marita Wetzel DO Primary Care Provider [phone] Carmen Becker PharmD Unavailable [phone] Reason for Visit * Reason Onset Date Comments Prior Authorization 04/25/2023 [employer] Encounter Details Date Type Department Care Team (Late st Contact Info) Description 04/25/2023 Telephone [facility] [address] [place] [address] Marita Wetzel DO [address] [place] [address] Prior Authorization ([employer]) Social History Tobacco [...] documented as of this encounter Care Teams Campus President Relationship Specialty Start Date End Date Marita Wetzel DO 230 [place] [address] PCP - General Family Medicine 04/21/18 Puia, Lg Morales [address] [place] [address] Pharmacist Internal Medicine 07/21/23 01/21/24 [facility] 05/22/24 documented as of this encounter
--- OUTSIDE RECORDS SUMMARY | 2025-01-07 09:12 | XMS_ITS | Encounter Summary ---
Author Organization [facility] Address [address] [place] [address] Phone Care Team Providers Care Final Cleaner Name Role Phone Marita Wetzel DO Primary Care Provider Unava ilable Encounter Details Date Type Department Care Team (Late st Contact Info) Description 05/20/2023 Documentation Only [facility] [address] [place] [address] [place], [place], [place] [address] [place] [address] Social History Tobacco Use Types Packs/Day Years [...] Care Team (Late st Contact Info) Description 01/11/2025 11:30 AM EDT Scheduled Only [facility] [address] [place] [address] 01/26/2025 9:30 AM EDT Clinical Support [facility] [address] [place] [address] 03/08/2025 12:30 PM EST Scheduled Only [facility] [place] [address] [place] [address] documented as of this encounter Visit Diagnoses Not on filedocumented in this encounter Care Teams Final Cleaner Relationship Specialty Start Date End Date Marita Wetzel DO [address] [place] [address] PCP - General Family Medicine 11/14/22 documented as of this encounter
--- OUTSIDE RECORDS SUMMARY | 2025-01-07 09:12 | XMS_ITS | Encounter Summary ---
Author Organization [facility] [place], Address [address] [place] [address] Phone Care Team Providers Care Speech Communication Instructor Name Role Phone Marita Wetzel DO Primary Care Provider Unava ilable Encounter Details Date Type Department Care Team (Late st Contact Info) Description 05/01/2023 Documentation Only [facility] [address] [facility] [place] [address] [place], [place] [address] [place] [address] Social History Tobacco Use Types Packs/Day Years [...] Care And Transplant Services Of [facility] V[facility] Access Center [address] [facility] [place] [address] 01/26/2025 9:30 AM EDT Clinical Support [facility] [address] [facility] [place] [address] 03/08/2025 12:30 PM EST Scheduled Only [facility] [place] [address] [place] [address] Scheduled Orders Name Type Priority Associated Diagnoses [...] Primary documented in this encounter Care Teams Speech Communication Instructor Relationship Specialty Start Date End Date Marita Wetzel DO 230 [place] [address] PCP - General Family Medicine 11/14/22 documented as of this encounter
--- OUTSIDE RECORDS SUMMARY | 2025-01-07 09:12 | XMS_ITS | Encounter Summary ---
Author Organization [facility] Address [address] [place] [address] Phone Care Team Providers Care Linux Systems Administrator Name Role Phone Marita Wetzel DO Primary Care Provider Unava ilable Encounter Details Date Type Department Care Team (Late st Contact Info) Description 04/18/2023 Documentation Only [facility] [address] [facility] [place] [address] Jerod Adames DO [address] [place] [address] [place] [phone] Social History Tobacco Use Types Packs/Day Years [...] [facility] [address] [place] [address] 01/26/2025 9:30 AM EDT Clinical Support [facility] [address] [place] [address] 03/08/2025 12:30 PM EST Scheduled Only [facility] [place] [address] [place] [address] documented as of this encounter Visit Diagnoses Not on filedocumented in this encounter Care Teams Linux Systems Administrator Relationship Specialty Start Date End Date Marita Wetzel DO [address] [place] [address] PCP - General Family Medicine 11/14/22 documented as of this encounter
--- OUTSIDE RECORDS SUMMARY | 2025-01-07 09:12 | XMS_ITS | Encounter Summary ---
Author Organization [employer] Address [address] [facility] 7t [place] [address] Care Team Providers Care Artifacts Conservator Name Role Phone Marita Wetzel DO Primary Care Provider [phone] Carmen Becker PharmD Unavailable [phone] Encounter Details Date Type Department Care Team ([facility] st Contact Info) Description 04/29/2023 Telephone [facility] [address] [place] [address] Marita Wetzel DO 230 [place], [place] [phone] Social History Tobacco Use Types Packs/Day Years [...] documented as of this encounter Care Teams Artifacts Conservator Relationship Specialty Start Date End Date Marita Wetzel DO 230 [place] [address] PCP - General Family Medicine 04/21/18 Carmen Becker PharmD [address] [place] [address] Pharmacist Internal Medicine 07/21/23 01/21/24 [facility] 05/22/24 documented as of this encounter
--- OUTSIDE RECORDS SUMMARY | 2025-01-07 09:12 | XMS_ITS | Encounter Summary ---
Author Organization [employer] Address [address] [facility] 7t [place] [address] Care Team Providers Care Certified Retinal Angiographer Name Role Phone Damari Marita Primary Care Provider + [phone] Reason for Visit * Reason Comments Med Change Request Encounter Details Date Type Department Care Team ([facility] st Contact Info) Description 12/08/2024 Refill [facility] [address] [place] [address] Cherry Landa MD [address] [place] [address] Type 2 diabetes mellitus with stage 3b chronic kidney disease, with long-term current use of insulin ([facility]) Social History Tobacco Use Types Packs/Day Years [...] Component 6.4( 5 11:38 AM EDT) No Carmen Becker, Lg [...] disease, with long-term current use of insulin ([facility]) documented in this encounter Additional Health Concerns Assessment Noted Time PHQ-9 Depression Total Score: 0 10/09/19 23 9:31 AM EDT documented as of this encounter Care Teams Certified Retinal Angiographer Relationship Specialty Start Date End Date Marita Wetzel DO [address] [place] [address] PCP - General Family Medicine 04/21/18 [facility] 05/22/24 documented as of this encounter
--- OUTSIDE RECORDS SUMMARY | 2025-01-07 09:12 | XMS_ITS | Encounter Summary ---
Author Organization [employer] Address [address] [facility] [address] [place] [address] Care Team Providers Care Retirement Plan Specialist Name Role Phone Marita Wetzel DO Primary Care Provider + [phone] Reason for Visit * Reason Onset Date Comments Med Refill 06/25/2024 Encounter Details Date Type Department Care Team (Late st Contact Info) Description 06/25/2024 Telephone [facility] [address] [place] [address] Marita Wetzel DO 230 [place], [place] [phone] Med Refill Social History Tobacco Use Types [...] 1 g tablet To be sent to: [facility]/pharmacy #[id number] *states it was prescribed before documented in this encounter Plan of Treatment Not on file documented as of this encounter Goals Goal Patient Goal Type Associated Problems Recent Progress Patient-Stated? Author Hemoglobin A1c < 7 Result Component 6.4( 5 11:38 AM EDT) No Carmen Becker, PharmD [...] documented as of this encounter Care Teams Retirement Plan Specialist Relationship Specialty Start Date End Date Marita Wetzel DO [address] [place] [address] PCP - General Family Medicine 04/21/18 [facility] 05/22/24 documented as of this encounter
--- OUTSIDE RECORDS SUMMARY | 2025-01-07 09:13 | XMS_ITS | Encounter Summary ---
Author Organization [facility] [employer] [facility] [employer] Address [address] [place] [address] Phone Care Team Providers Care Supervisory Geographer Name Role Phone Marita Wetzel DO Primary Care Provider Unava ilable Encounter Details Date Type Department Care Team (Late st Contact Info) Description 01/21/2024 Documentation Only [facility] [address] [place] [address] Pauline Aguayo [address] [place] [address] Social History Tobacco Use Types Packs/Day Years [...] Of [facility] Vascular Access Center [address] [place] [address] [place] [address] 01/26/2025 9:30 AM EDT Clinical Support [facility] Vascular Access [place] [address] [place] [address] 03/08/2025 12:30 PM EST Scheduled Only [facility] [place] [address] [place] [address] documented as of this encounter Visit Diagnoses Not on filedocumented in this encounter Care Teams Supervisory Geographer Relationship Specialty Start Date End Date Marita Wetzel DO 230 [place] [address] PCP - General Family Medicine 11/14/22 documented as of this encounter
--- OUTSIDE RECORDS SUMMARY | 2025-01-07 09:13 | XMS_ITS | Encounter Summary ---
Author Organization [facility] [place], Address [address] [place] [address] Phone Care Team Providers Care Product Test Specialist Name Role Phone Marita Wetzel DO Primary Care Provider Unava ilable Reason for Visit * Reason Comments Med Refill Encounter Details Date Type Department Care Team (Late Contact Info) Description 12/06/2020 Refill [facility] [place] [address] [place] [address] Bernardo Doty MD [address] [facility] [place] [phone] Social History Tobacco Use Types Packs/Day Years [...] Department Care Team (Late Contact Info) Description 01/11/2025 11:30 AM EDT Scheduled Only [facility] Vascular Access Center [address] [place] [address] 01/26/2025 9:30 AM EDT Clinical Support [facility] Vascular Access Center [address] [facility] [place] [address] 03/08/2025 12:30 PM EST Scheduled Only [facility] [place] [address] [place] [address] documented as of this encounter Visit Diagnoses Not on filedocumented in this encounter Care Teams Product Test Specialist Relationship Specialty Start Date End Date Marita Wetzel DO [address] [place] [address] PCP - General Family Medicine 11/14/22 documented as of this encounter
--- OUTSIDE RECORDS SUMMARY | 2025-01-07 09:13 | XMS_ITS | Encounter Summary ---
Author Organization [facility] [place], Address [address] [place] [address] Phone Care Team Providers Care Microfiche Duplicator Name Role Phone Marita Wetzel DO Primary Care Provider Unava ilable Reason for Visit * Reason Comments Med Refill Encounter Details Date Type Department Care Team (Late Contact Info) Description 01/04/2021 Refill [facility] [place] [address] [place] [address] Bernardo Doty MD [address] [facility] [place] [phone] Social History Tobacco Use Types Packs/Day Years [...] [facility] Vascular Access Center [address] [facility] [place] [address] 01/26/2025 9:30 AM EDT Clinical Support [facility] Vascular Access Center [address] [address] 03/08/2025 12:30 PM EST Scheduled Only [facility] [place] [address] [place] [address] documented as of this encounter Visit Diagnoses Not on filedocumented in this encounter Care Teams Microfiche Duplicator Relationship Specialty Start Date End Date Marita Wetzel DO [address] [place] [address] PCP - General Family Medicine 11/14/22 documented as of this encounter
--- OUTSIDE RECORDS SUMMARY | 2025-01-07 09:13 | XMS_ITS | Encounter Summary ---
Author Organization [facility] [place], Address [address] [place] [address] Phone Care Team Providers Care Orthotics Prosthetics Assistant Name Role Phone Marita Wetzel DO Primary Care Provider Unava ilable Encounter Details Date Type Department Care Team (Late st Contact Info) Description 12/06/2022 Documentation Only [facility] [address] [facility] [facility] [place] [phone] [place], [place] [address] [place] [address] Social History Tobacco Use Types Packs/Day Years [...] Of [facility] Access Center [address] [facility] [address] [place] [address] 01/26/2025 9:30 AM EDT Clinical Support [facility] Access Center [address] [facility] [address] [place] [address] 03/08/2025 12:30 PM EST Scheduled Only [facility] [place] [address] [place] [address] documented as of this encounter Visit Diagnoses Not on filedocumented in this encounter Care Teams Orthotics Prosthetics Assistant Relationship Specialty Start Date End Date Marita Wetzel DO [address] [place] [address] PCP - General Family Medicine 11/14/22 documented as of this encounter
--- OUTSIDE RECORDS SUMMARY | 2025-01-07 09:13 | XMS_ITS | Encounter Summary ---
Author Organization [facility] Address [address] [place] [address] Care Team Providers Care Yarn Bleaching Machine Operator Name Role Phone Marita Wetzel DO Primary Care Provider [phone] Encounter Details Date Type Department Care Team (Late st Contact Info) Description 05/31/2024 Lab Requisition [facility] - Main Lab [address] [facility] [address] [place] [phone] Marily Gordillo MD [address] [place] [address] Acute kidney failure, unspecified (CMS/HCC [...] unspecified documented in this encounter Care Teams Yarn Bleaching Machine Operator Relationship Specialty Start Date End Date Marita Wetzel DO [address] [place], [place] PCP - General 01/09/23 documented as of this encounter
--- OUTSIDE RECORDS SUMMARY | 2025-01-07 09:13 | XMS_ITS | Encounter Summary ---
Author Organization [facility] Address [address] [place] [address] Phone Care Team Providers Care Data Communications Analyst Name Role Phone Marita Wetzel DO Primary Care Provider Unava ilable Encounter Details Date Type Department Care Team (Late st Contact Info) Description 06/14/2022 Documentation Only [facility] [address] [facility] [place] [address] Candace Adam PA [address] [place] [address] [place] [address] Social History Tobacco Use Types Packs/Day Years [...] Transplant Services Of [facility] Vascular Access [address] [place] [address] 01/26/2025 9:30 AM EDT Clinical Support [facility] Vascular Access [address] [place] [address] 03/08/2025 12:30 PM EST Scheduled Only [facility] [place] [address] [place] [address] documented as of this encounter Visit Diagnoses Not on filedocumented in this encounter Care Teams Data Communications Analyst Relationship Specialty Start Date End Date Marita Wetzel DO [address] [place] [address] PCP - General Family Medicine 11/14/22 documented as of this encounter
--- OUTSIDE RECORDS SUMMARY | 2025-01-07 09:13 | XMS_ITS | Encounter Summary ---
Author Organization [facility] [place], Address [address] [place] [address] Phone Care Team Providers Care Phone Circuit Operator Name Role Phone Marita Wetzel DO Primary Care Provider Unava ilable Encounter Details Date Type Department Care Team (Late st Contact Info) Description 11/11/2022 Documentation Only [facility] Of [address] [place] [address] Pauline Aguayo [address] [place] [address] Social History Tobacco Use Types Packs/Day Years [...] Of [facility] V[facility] Access Center [address] [facility] [place] [address] 01/26/2025 9:30 AM EDT Clinical Support [facility] Access Center [address] [facility] [place] [address] 03/08/2025 12:30 PM EST Scheduled Only [facility] [place] [address] [place] [address] documented as of this encounter Visit Diagnoses Not on filedocumented in this encounter Care Teams Phone Circuit Operator Relationship Specialty Start Date End Date Marita Wetzel DO [address] [place] [address] PCP - General Family Medicine 11/14/22 documented as of this encounter
--- OUTSIDE RECORDS SUMMARY | 2025-01-07 09:13 | XMS_ITS | Encounter Summary ---
Author Organization [facility] [place] [address] [place] [place] [address] Phone Care Team Providers Care Scroll Assembler Name Role Phone Marita Wetzel DO Primary Care Provider Unava ilable Encounter Details Date Type Department Care Team (Late st Contact Info) Description 10/03/2023 Documentation Only [facility] Of [address] [place] [address] Srinivas Agrawal MD [address] [place] [phone] Social History Tobacco Use Types Packs/Day Years [...] Services Of [facility] Vascular Access [address] [place] [phone] 01/26/2025 9:30 AM EDT Clinical Support [facility] Vascular Access [address] [place] [address] 03/08/2025 12:30 PM EST Scheduled Only [facility] [place] [address] [place] [address] documented as of this encounter Visit Diagnoses Not on filedocumented in this encounter Care Teams Scroll Assembler Relationship Specialty Start Date End Date Marita Wetzel DO [address] [place] [address] PCP - General Family Medicine 11/14/22 documented as of this encounter
--- OUTSIDE RECORDS SUMMARY | 2025-01-07 09:13 | XMS_ITS | Encounter Summary ---
Author Organization [employer] Address [address] [facility] [address] [place] [address] Care Team Providers Care Special Tester Name Role Phone Marita Wetzel DO Primary Care Provider + [phone] Reason for Visit * Reason Onset Date Comments Hospital Follow-up 06/11/2024 Encounter Details Date Type Department Care Team ([facility] st Contact Info) Description 06/11/2024 Telephone [facility] [address] [place] [address] Marita Wetzel DO [address] [place], [place] [phone] Hospital Follow-up Social History Tobacco Use Types [...] from pt requesting a HDF appt. [place] [facility] Date of admission: 05/31/2024 Discharge date: ------ Diagnosed:kidney failure *Send message to [facility] Clinical Care Coordinators documented in this encounter Plan of Treatment Not on file documented as of this encounter Goals Goal Patient Goal Type Associated Problems Recent Progress Patient-Stated? Author Hemoglobin A1c < 7 Result Component 6.4( 11:38 AM EDT) No Puia, Carmen, PharmD Record your blood sugar as directed Result Component No Rosita Carmen, PharmD Note: Use CGM, ensuring sensor is scanned at least once every 8 hours to capture 24H data. Check BG manually, as directed. documented as of this encounter Visit Diagnoses Not on filedocumented in this encounter Additional Health Concerns Assessment Noted Time PHQ-9 Depression Total Score: 0 10/09/19 23 9:31 AM EDT documented as of this encounter Care Teams Special Tester Relationship Specialty Start Date End Date Marita Wetzel DO [address] [place] [address] PCP - General Family Medicine 04/21/18 [facility] 05/22/24 documented as of this encounter
--- OUTSIDE RECORDS SUMMARY | 2025-01-07 09:13 | XMS_ITS | Encounter Summary ---
Author Organization [facility] [place], Address [address] [place] [address] Phone Care Team Providers Care Buggy Runner Name Role Phone Marita Wetzel DO Primary Care Provider Unava ilable Encounter Details Date Type Department Care Team (Late st Contact Info) Description 10/17/2023 Documentation Only [facility] [address] [place] [address] [place], [place] [address] [place] [address] Social History Tobacco Use Types Packs/Day Years [...] [facility] [address] [place] [address] 01/26/2025 9:30 AM EDT Clinical Support [facility] Of [facility] Vascular Access Center [address] [place] [address] 03/08/2025 12:30 PM EST Scheduled Only [facility] [place] - [facility] [address] [place] [address] documented as of this encounter Visit Diagnoses Not on filedocumented in this encounter Care Teams Buggy Runner Relationship Specialty Start Date End Date Marita Wetzel DO [address] [place] [address] PCP - General Family Medicine 11/14/22 documented as of this encounter
--- OUTSIDE RECORDS SUMMARY | 2025-01-07 09:13 | XMS_ITS | Encounter Summary ---
Author Organization [facility] Address [address] [place] [address] Phone Care Team Providers Care Tipple Greaser Name Role Phone Marita Wetzel DO Primary Care Provider Unava ilable Encounter Details Date Type Department Care Team (Late st Contact Info) Description 03/18/2023 Documentation Only [facility] [address] [facility] [place] [phone] Bernardo Doty MD [address] [place] [address] Dr. [place] [phone] Social History Tobacco Use Types Packs/Day Years [...] Of [facility] Vascular Access Center [address] [place] [phone] 01/26/2025 9:30 AM EDT Clinical Support [facility] Of [facility] Vascular Access Center [address] [facility] [place] [address] 03/08/2025 12:30 PM EST Scheduled Only [facility] [place] - V[facility] Access Center [address] [place] [address] documented as of this encounter Visit Diagnoses Not on filedocumented in this encounter Care Teams Tipple Greaser Relationship Specialty Start Date End Date Marita Wetzel DO [address] [place] [address] PCP - General Family Medicine 11/14/22 documented as of this encounter
--- OUTSIDE RECORDS SUMMARY | 2025-01-07 09:13 | XMS_ITS | Encounter Summary ---
Author Organization [facility], Address [address] [place] [address] Phone Care Team Providers Care Heel Packer Name Role Phone Marita Wetzel DO Primary Care Provider Unava ilable Encounter Details Date Type Department Care Team (Late st Contact Info) Description 01/05/2025 Treatment [facility], [address] [place] [address] Jeanne Bailey MD [address] [place] [address] [place] [phone] End stage renal disease; Dependence on renal [...] Date: 01/05/2025 This patient was personally seen [id number] for a basic visit as part of routine monthly dialysis care for end stage renal disease. Attending Fitter And Turner: JEANNE BAILEY MD Dialysis Location: [facility] Schedule: Shift: 3 OVERVIEW Patient is stable. COMMENTS: 11/01 Kt/V suboptimal increase time to 3 hours and 30 minutes. HOME MEDICATIONS [facility] Outpatient Medications carvedilol 25 mg [...] times a day. [Take with meals] [facility] Allergies Allergen: codeine Reaction: Unknown [...] K, 2.5 Ca, 1.0 Mg, 100 Dextrose ([id number]) Sodium: 137 Bicarb: 35 Pre Dialysis Vitals [...] reviewed. Dietary adjustments made in conjunction with roller inspector and mender. 7.Transplant: The patient is being evaluated for [...] reviewed. Dietary adjustments made in conjunction with roller inspector and mender. 7.Transplant: The patient is being evaluated for [...] reviewed. Dietary adjustments made in conjunction with roller inspector and mender. 7.Transplant: The patient is being evaluated for [...] reviewed. Dietary adjustments made in conjunction with roller inspector and mender. 7.Transplant: The patient is being evaluated for [...] reviewed. Dietary adjustments made in conjunction with roller inspector and mender. 7.Transplant: Not a candidate. 07/21/24 Patient is [...] reviewed. Dietary adjustments made in conjunction with roller inspector and mender. 7.Transplant: not a candidate. 06/21/24 [facility] is stable[facility] Medications [...] reviewed. Dietary adjustments made in conjunction with roller inspector and mender. Transplant: Not a candidate. 05/24/24 Patient is [...] reviewed. Dietary adjustments made in conjunction with roller inspector and mender. 7.Transplant: Not a candidate. decreasing tacrolimus doing [...] reviewed. Dietary adjustments made in conjunction with roller inspector and mender. Transplant: The patient will be re-evaluated for [...] Services Of [facility] Vascular Access [address] [place] [address] 01/26/2025 9:30 AM EDT Clinical Support [facility] Vascular Access [address] [place] [address] 03/08/2025 12:30 PM EST Scheduled Only [facility] Vascular Access [address] [place] [address] documented as of this encounter Visit Diagnoses Diagnosis End stage renal disease Dependence on renal dialysis documented in this encounter Care Teams Heel Packer Relationship Specialty Start Date End Date Marita Wetzel DO [address] [place] [address] PCP - General Family Medicine 11/14/22 documented as of this encounter
--- OUTSIDE RECORDS SUMMARY | 2025-01-07 09:13 | XMS_ITS | Encounter Summary ---
Author Organization [facility] Address [address] [place] [address] Phone Care Team Providers Care Security Strategist Name Role Phone Marita Wetzel DO Primary Care Provider Unava ilable Encounter Details Date Type Department Care Team (Late st Contact Info) Description 12/31/2022 Documentation Only [facility] Of [address] [place] [address] Candace Adam PA [address] [place] [address] [place] [address] Social History Tobacco Use Types Packs/Day Years [...] Services Of [facility] Vascular Access [address] [place] [address] 01/26/2025 9:30 AM EDT Clinical Support [facility] Vascular Access [address] [place] [address] 03/08/2025 12:30 PM EST Scheduled Only [facility] [place] - V[facility] Access Center [address] [place] [address] documented as of this encounter Visit Diagnoses Not on filedocumented in this encounter Care Teams Security Strategist Relationship Specialty Start Date End Date Marita Wetzel DO [address] [place] [address] PCP - General Family Medicine 11/14/22 documented as of this encounter
--- OUTSIDE RECORDS SUMMARY | 2025-01-07 09:13 | XMS_ITS | Encounter Summary ---
Author Organization [facility] [place], Address [address] [place] [address] Phone Care Team Providers Care Special Events Manager Name Role Phone Marita Wetzel DO Primary Care Provider Unava ilable Encounter Details Date Type Department Care Team (Late st Contact Info) Description 06/25/2022 Documentation Only [facility] Of [address] [place] [address] Pauline Aguayo [address] [place] [phone] Social History Tobacco Use Types Packs/Day Years [...] [facility] Vascular Access Center [address] [place] [address] 01/26/2025 9:30 AM EDT Clinical Support [facility] Vascular Access Center [address] [place] [address] 03/08/2025 12:30 PM EST Scheduled Only [facility] [place] - V[facility] Access Center [address] [place] [address] documented as of this encounter Visit Diagnoses Not on filedocumented in this encounter Care Teams Special Events Manager Relationship Specialty Start Date End Date Marita Wetzel DO [address] [place] [address] PCP - General Family Medicine 11/14/22 documented as of this encounter
--- OUTSIDE RECORDS SUMMARY | 2025-01-07 09:13 | XMS_ITS | Encounter Summary ---
Author Organization [facility] Address [address] [place] [address] Phone Care Team Providers Care Truer Pinion And Wheel Name Role Phone Marita Wetzel DO Primary Care Provider Unava ilable Encounter Details Date Type Department Care Team (Late st Contact Info) Description 12/09/2022 Documentation Only [facility] [address] [place] [address] Candace Adam PA [address] [place] [address] [place] [address] Social History Tobacco Use Types Packs/Day Years [...] Services Of [facility] Vascular Access [place] [address] [place] [address] 01/26/2025 9:30 AM EDT Clinical Support [facility] Of [facility] Vascular Access [address] [place] [address] 03/08/2025 12:30 PM EST Scheduled Only [facility] [place] - V[facility] Access Center [address] [place] [address] documented as of this encounter Visit Diagnoses Not on filedocumented in this encounter Care Teams Truer Pinion And Wheel Relationship Specialty Start Date End Date Marita Wetzel DO [address] [place] [address] PCP - General Family Medicine 11/14/22 documented as of this encounter
--- OUTSIDE RECORDS SUMMARY | 2025-01-07 09:13 | XMS_ITS | Encounter Summary ---
Author Organization [facility] Address [address] [place] [address] Phone Care Team Providers Care Biology Instructor Name Role Phone Marita Wetzel DO Primary Care Provider Unava ilable Encounter Details Date Type Department Care Team (Late st Contact Info) Description 08/28/2023 Documentation Only [facility] Of [address] [place] [address] [place], [place], [place] [address] [place] [address] Social History Tobacco Use Types Packs/Day Years [...] [facility] Vascular Access Center [address] [place] [address] 01/26/2025 9:30 AM EDT Clinical Support [facility] Of [facility] Vascular Access [place] [address] [place] [place] [address] 03/08/2025 12:30 PM EST Scheduled Only [facility] [place] - V[facility] Access Center [address] [place] [address] documented as of this encounter Visit Diagnoses Not on filedocumented in this encounter Care Teams Biology Instructor Relationship Specialty Start Date End Date Marita Wetzel DO [address] [place] [address] PCP - General Family Medicine 11/14/22 documented as of this encounter
--- OUTSIDE RECORDS SUMMARY | 2025-01-07 09:13 | XMS_ITS | Encounter Summary ---
Author Organization [facility] Address [address] [place] [address] Phone Care Team Providers Care Open Hearth Helper Name Role Phone Marita Wetzel DO Primary Care Provider Unava ilable Encounter Details Date Type Department Care Team (Late st Contact Info) Description 01/01/2024 Documentation Only [facility] [address] [place] [address] Hend[place], [place], [place] [address] [place] [phone] Social History Tobacco Use Types Packs/Day Years [...] [facility] Vascular Access Center [address] [place] [address] 01/26/2025 9:30 AM EDT Clinical Support [facility] Vascular Access [place] [address] [place] [address] 03/08/2025 12:30 PM EST Scheduled Only [facility] [place] - V[facility] Access Center [address] [place] [address] documented as of this encounter Visit Diagnoses Not on filedocumented in this encounter Care Teams Open Hearth Helper Relationship Specialty Start Date End Date Marita Wetzel DO [address] [place] [address] PCP - General Family Medicine 11/14/22 documented as of this encounter
--- OUTSIDE RECORDS SUMMARY | 2025-01-07 09:13 | XMS_ITS | Encounter Summary ---
Author Organization [facility] Address [address] [place] [address] Phone Care Team Providers Care Orthotist/Prosthetist Name Role Phone Marita Wetzel DO Primary Care Provider Unava ilable Encounter Details Date Type Department Care Team (Late st Contact Info) Description 04/13/2024 Documentation Only [facility] [address] [place] [address] Hend[place], [place], [place] 30[address] [place] [address] Social History Tobacco Use Types Packs/Day Years [...] Transplant Services Of [facility] Vascular Access Center [address] [place] [address] 01/26/2025 9:30 AM EDT Clinical Support [facility] Of [facility] Vascular Access [place] [address] [place] [address] 03/08/2025 12:30 PM EST Scheduled Only [facility] [place] - V[facility] Access Center [address] [place] [address] documented as of this encounter Visit Diagnoses Not on filedocumented in this encounter Care Teams Orthotist/Prosthetist Relationship Specialty Start Date End Date Marita Wetzel DO [address] [place] [address] PCP - General Family Medicine 11/14/22 documented as of this encounter
--- OUTSIDE RECORDS SUMMARY | 2025-01-07 09:13 | XMS_ITS | Encounter Summary ---
Author Organization [facility] Address [address] [place] [address] Phone Care Team Providers Care Transportation Refrigeration Technician Name Role Phone Marita Wetzel DO Primary Care Provider Unava ilable Encounter Details Date Type Department Care Team (Late st Contact Info) Description 10/06/2023 Documentation Only [facility] Of [address] [place] [place] [address] [place], [place], [place] [address] [place] [address] Social History Tobacco Use Types Packs/Day Years [...] Services Of [facility] Vascular Access Center [address] [place] [address] 01/26/2025 9:30 AM EDT Clinical Support [facility] Vascular Access [place] [address] [place] [place] [address] 03/08/2025 12:30 PM EST Scheduled Only [facility] [place] - V[facility] Access Center [address] [place] [address] documented as of this encounter Visit Diagnoses Not on filedocumented in this encounter Care Teams Transportation Refrigeration Technician Relationship Specialty Start Date End Date Marita Wetzel DO [address] [place] [address] PCP - General Family Medicine 11/14/22 documented as of this encounter
--- OUTSIDE RECORDS SUMMARY | 2025-01-07 09:13 | XMS_ITS | Encounter Summary ---
Author Organization [facility] Address [address] [place] [address] Phone Care Team Providers Care Multi Needle Machine Operator Name Role Phone Marita Wetzel DO Primary Care Provider Unava ilable Encounter Details Date Type Department Care Team (Late st Contact Info) Description 04/17/2024 Documentation Only [facility] [address] [place] [place] [address] [place], [place], [place] [address] [place] [address] Social History Tobacco Use Types Packs/Day Years [...] [facility] Vascular Access Center [address] [place] [address] 01/26/2025 9:30 AM EDT Clinical Support [facility] Of [facility] Vascular Access [place] [address] [place] [place] [address] 03/08/2025 12:30 PM EST Scheduled Only [facility] [place] - Vascular Access Center [address] [place] [address] documented as of this encounter Visit Diagnoses Not on filedocumented in this encounter Care Teams Multi Needle Machine Operator Relationship Specialty Start Date End Date Marita Wetzel DO [address] [place] [address] PCP - General Family Medicine 11/14/22 documented as of this encounter
--- OUTSIDE RECORDS SUMMARY | 2025-01-07 09:13 | XMS_ITS | Encounter Summary ---
Author Organization [facility] [place], Address [address] [place] [address] Phone Care Team Providers Care Regional Sales Manager Name Role Phone Marita Wetzel DO Primary Care Provider Unava ilable Reason for Visit * Reason Comments Med Refill Encounter Details Date Type Department Care Team (Late Contact Info) Description 05/08/2021 Refill [facility] [place] [address] [place] [address] Bernardo Doty MD [address] [place] [address] Social History Tobacco Use Types Packs/Day Years [...] [facility] Vascular Access Center [address] [place] [address] 01/26/2025 9:30 AM EDT Clinical Support [facility] Of [facility] Vascular Access Center [address] [place] [address] 03/08/2025 12:30 PM EST Scheduled Only [facility] [place] - V[facility] Access Center [address] [place] [address] documented as of this encounter Visit Diagnoses Not on filedocumented in this encounter Care Teams Regional Sales Manager Relationship Specialty Start Date End Date Marita Wetzel DO [address] [place] [address] PCP - General Family Medicine 11/14/22 documented as of this encounter
--- OUTSIDE RECORDS SUMMARY | 2025-01-07 09:13 | XMS_ITS | Encounter Summary ---
Author Organization [facility] Of [facility] Address [address] [place] [address] Phone Care Team Providers Care Woolen Suiting Shrinker Name Role Phone Marita Wetzel DO Primary Care Provider Unava ilable Encounter Details Date Type Department Care Team (Late st Contact Info) Description 08/27/2023 Documentation Only [facility] Of [address] [place] [address] [place], [place], [place] [address] [place] [address] Social History Tobacco Use Types Packs/Day Years [...] [facility] Vascular Access Center [address] [place] [address] 01/26/2025 9:30 AM EDT Clinical Support [facility] Of [facility] Vascular Access [place] [address] [place] [address] 03/08/2025 12:30 PM EST Scheduled Only [facility] [place] - V[facility] Access Center [address] [place] [address] documented as of this encounter Visit Diagnoses Not on filedocumented in this encounter Care Teams Woolen Suiting Shrinker Relationship Specialty Start Date End Date Marita Wetzel DO [address] [place] [address] PCP - General Family Medicine 11/14/22 documented as of this encounter
--- OUTSIDE RECORDS SUMMARY | 2025-01-07 09:13 | XMS_ITS | Encounter Summary ---
Author Organization [facility] Address [address] [place] [address] Phone Care Team Providers Care Mds Manager Name Role Phone Marita Wetzel DO Primary Care Provider Unava ilable Encounter Details Date Type Department Care Team (Late st Contact Info) Description 09/26/2022 Documentation Only [facility] [address] [place] [phone] Candace Adam PA [address] [place] [address] [place] [address] Social History Tobacco Use Types Packs/Day Years [...] [facility] Vascular Access [address] [place] [place] [address] 01/26/2025 9:30 AM EDT Clinical Support [facility] Vascular Access [address] [place] [address] 03/08/2025 12:30 PM EST Scheduled Only [facility] [place] - [facility] Center [address] [place] [address] documented as of this encounter Visit Diagnoses Not on filedocumented in this encounter Care Teams Mds Manager Relationship Specialty Start Date End Date Marita Wetzel DO [address] [place] [address] PCP - General Family Medicine 11/14/22 documented as of this encounter
--- OUTSIDE RECORDS SUMMARY | 2025-01-07 09:13 | XMS_ITS | Encounter Summary ---
Author Organization [facility] Address [address] [place] [address] Care Team Providers Care Childrens Club Attendant Name Role Phone Marita Wetzel DO Primary Care Provider +1- [phone] Encounter Details Date Type Department Care Team (Late st Contact Info) Description 05/21/2024 Lab Requisition [facility] - Main Lab [address] [facility] [place] [phone] Marily Gordillo MD [address] [place] [phone] Chronic embolism and thrombosis of unspecified vein; [...] unspecified documented in this encounter Care Teams Childrens Club Attendant Relationship Specialty Start Date End Date Marita Wetzel DO [address] [place], [place] PCP - General 01/09/23 documented as of this encounter
--- OUTSIDE RECORDS SUMMARY | 2025-01-07 09:13 | XMS_ITS | Clinical Summary ---
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 47054 mL 12 02/10/20 24 Active predniSONE 5 [...] Treatment [facility] [address] [place] [address] Bernardo Doty MD End stage renal disease; Dependence on renal dialysis 01/03/2025 Treatment [facility] [address] [place] [address] Bernardo Doty MD End stage renal disease; Dependence on renal dialysis 12/29/2024 9:30 AM EDT Clinical Support [facility] [place], - Vascular Access Center [address] [place] [address] Hazel Zepeda Encounter for fitting and adjustment of vascular catheter [Z45.2] (Primary Dx); Stage 5 chronic kidney disease (HCC) [N18.5] 12/29/2024 Orders Only [facility] [place] [address] [place] [address] Srinivas Agrawal MD 12/27/2024 Treatment [facility] [place], [address] [place] [address] Bernardo Doty MD End stage renal disease; Dependence on renal dialysis 12/22/2024 Telephone [facility] [place], - Vascular Access Center [address] [place] [address] Lakesha Sandoval 12/17/2024 Orders Only [facility] [address] [address] Srinivas Agrawal MD 12/13/2024 Orders Only [facility] [address] [address] Bernardo Doty MD 12/10/2024 Orders Only [facility] [address] [address] Bernardo Doty MD 12/08/2024 Treatment [facility] [place], [address] [place] [address] Bernardo Doty MD End stage renal disease; Dependence on renal dialysis 12/08/2024 Orders Only [facility] [address] [address] Srinivas Agrawal MD 12/06/2024 Orders Only [facility] [address] [address] Bernardo Doty MD 12/06/2024 Treatment [facility] [place], [address] [place] [address] Bernardo Doty MD End stage renal disease; Dependence on renal dialysis 12/01/2024 Orders Only [facility] [address] [address] Srinivas Agrawal MD 11/24/2024 Orders Only [facility] [address] [address] Srinivas Agrawal MD 11/22/2024 Treatment [facility] [place], [address] [place] [address] Bernardo Doty MD End stage renal disease; Dependence on renal dialysis 11/19/2024 Treatment [facility] [place], [address] [place] [address] Bernardo Doty MD End stage renal disease; Dependence on renal dialysis 11/17/2024 Orders Only [facility] [address] [address] Srinivas Agrawal MD 11/15/2024 Treatment [facility] [place], [address] [place] [address] Bernardo Doty MD End stage renal disease; Dependence on renal dialysis 11/11/2024 10:30 AM EDT Clinical Support [facility] [place], - Vascular Access Center [facility] [place] [address] Db Neumann MD Encounter for fitting and adjustment of vascular catheter [Z45.2] (Primary Dx); Chronic kidney disease, Stage V (HCC) [N18.5] 11/10/2024 Orders Only [facility] [address] [address] Srinivas Agrawal MD 11/08/2024 Treatment [facility] [place], [address] [place] [address] Bernardo Doty MD End stage renal disease; Dependence on renal dialysis 11/05/2024 Orders Only [facility] [address] [address] Bernardo Doty MD 11/03/2024 Orders Only [facility] [address] [address] Srinivas Agrawal MD 11/01/2024 Treatment [facility] [place], [address] [place] [address] Bernardo Doty MD End stage renal disease; Dependence on renal dialysis 11/01/2024 Orders Only [facility] [address] [address] Bernardo Doty MD 10/27/2024 Orders Only [facility] [address] [address] Srinivas Agrawal MD 10/25/2024 Orders Only [facility] [address] [address] Bernardo Doty MD 10/25/2024 Treatment [facility], [address] [address] Bernardo Doty MD End stage renal disease; Dependence on renal dialysis 10/20/2024 Orders Only [facility] [address] [address] Srinivas Agrawal MD 10/18/2024 Orders Only [facility] [address] [address] Srinivas Agrawal MD 10/13/2024 9:00 AM EDT Clinical Support [facility] Vascular Access Center [address] [place] [address] [place] [address] Lakesha Sandoval Encounter for fitting and adjustment of vascular catheter [Z45.2] (Primary Dx); End stage renal disease (HCC) [N18.6] 10/12/2024 Telephone [facility] Vascular Access Center [address] [place] [address] [place] [address] Stephany Stevens 10/11/2024 Orders Only [facility] [address] [address] Srinivas Agrawal MD from Last 3 Months [...] [facility] Vascular Access Center [address] [place] [address] [place] [address] 01/26/2025 9:30 AM EDT Clinical Support [facility] Vascular Access [address] [place] [address] 03/08/2025 12:30 PM EST Scheduled Only [facility] Vascular Access [address] [place] [address] Health Maintenance Due Date Last Done Comments [...] 02/14/2021, Additional history exists Diabetes: Hemoglobin A1C 03/09/2025 025, 10/06/2024, 07/07/2024, Additional history exists Pneumococcal [...] CHEMISTRY Routine 10/11/2024 SPECIAL CHEMISTRY Routine 10/06/2024 from Last 3 Months or Most Recently Relevant to Health Maintenance Results * (ABNORMAL) HEMATOLOGY (12/29/2024) Only the most recent of12 resultswithin the time period is included. Hemoglobin 9.8(L) 12.0 - 16.0 g/dL [facility] Hemoglobin x 3 29.4(L) 36.0 - 48.0 % [facility] 12/29/2024 12/30/2024 9:3 2 AM EDT Narrative [employer] [facility] - 12/30/2024 Unless otherwise specified, test(s) performed at: [place] [address] ADOBE FLEX DEVELOPER: Dwayne Fuentes M.D. For any questions, please call customer service at FREQUENCY:OTHER Resulting Agency Comment Specimen source: Blood Srinivas Agrawal MD LAB BLOOD ORDERABLES Final Result Performing Organization Address [facility] de Phone Number [employer] See order comments or contact performing lab Unknown, [place] * [facility] (12/22/2024) Only the most recent of7 resultswithin the time period is included. % Urea Reduction 73 65 - 80 % [facility] 12/22/2024 12/23/2024 1:2 8 PM EDT Narrative [facility] - 12/24/2024 Unless otherwise specified, test(s) performed at: [facility], [address] [place] [address] ADOBE FLEX DEVELOPER: Dwayne Fuentes M.D. For any questions, please call customer service at FREQUENCY:OTHER Resulting Agency Comment Specimen source: Plasma Srinivas Agrawal MD LAB BLOOD ORDERABLES Final Result Performing Organization Address City/[facility] Co de Phone Number [facility] See order comments or contact performing lab Unknown, [place] * POST CHEMISTRY (12/22/2024) Only the most recent of7 resultswithin the time period is included. BUN Post Dialysis 11 6 - 19 mg/dL [facility] 12/22/2024 12/23/2024 1:2 8 PM EDT Narrative [facility] - 12/23/2024 Unless otherwise specified, test(s) performed at: [facility], [address] [place] [address] ADOBE FLEX DEVELOPER: Dwayne Fuentes M.D. For any questions, please call customer service at FREQUENCY:OTHER Resulting Agency Comment Specimen source: Plasma Srinivas Agrawal MD LAB BLOOD ORDERABLES Final Result Performing Organization Address [facility] de Phone Number [facility] See order comments or contact performing lab Unknown, [place] * (ABNORMAL) [facility] (12/22/2024) Only the most recent of15 resultswithin the time period is included. BUN 40(H) 6 - 19 mg/dL [facility] 12/22/2024 12/23/2024 9:4 0 AM EDT Narrative [facility] - 12/24/2024 Unless otherwise specified, test(s) performed at: [facility], [address] [place] [address] ADOBE FLEX DEVELOPER: Dwayne Fuentes M.D. For any questions, please call customer service at FREQUENCY:OTHER Resulting Agency Comment Specimen source: Serum Srinivas Agrawal MD LAB BLOOD ORDERABLES Final Result Performing Organization Address City/[facility]/ZIP Co de Phone Number [facility] See order comments or contact performing lab Unknown, [place] * [facility] Results (12/22/2024) Only the most recent of7 resultswithin the time period is included. nPCR_HD 0.78 [facility] eKt/V Gotch 1.35 [facility] Center eKt/V ([place]) 1.35 [facility] spKt/V Gotch 1.60 [facility] eKdrt/V 1.35 [facility] WSTDKT/V 2.5 [facility] PCR 52.24 [facility] spKt/V (Daugirdas II) 1.58 [facility] eNPCR 0.73 [facility] 12/22/2024 12/22/2024 [facility] Ordering Provider LAB BLOOD ORDERABLES Final Result [facility] Center Contact Performing lab Unknown, [place] * IMMUNO CHEMISTRY (12/08/2024) Only the most recent of2 resultswithin the time period is included. Pathologist [facility] Hep B Surface Ag Negative Negative [employer] 12/08/2024 12/09/2024 8:2 1 AM EDT Narrative [facility] - 12/09/2024 Unless otherwise specified, test(s) performed at: [facility], [address] [place], [place] [id number] ADOBE FLEX DEVELOPER: Dwayne Fuentes M.D. For any questions, please call customer service at FREQUENCY:MONTHLY Resulting Agency Comment Specimen source: Serum Srinivas Agrawal MD LAB BLOOD ORDERABLES Final Result Performing Organization Address City/[facility]/ZIP Co de Phone Number [facility] See order comments or contact performing lab Unknown, [place] * (ABNORMAL) SPECIAL CHEMISTRY (10/06/2024) Hemoglobin A1C 6.1(H) 4.8 - 5.9 % [facility] 10/06/2024 10/07/2024 11: 36 AM EDT Narrative [facility] - 10/08/2024 Unless otherwise specified, test(s) performed at: [facility], [address] [place] [address] ADOBE FLEX DEVELOPER: Dwayne Fuentes M.D. For any questions, please call customer service at FREQUENCY:MONTHLY Resulting Agency Comment Specimen source: Blood Srinivas Agrawal MD LAB BLOOD BANK TEST ORDERA BLES Final Result [facility] See order comments or contact performing lab Unknown, [place] from Last 3 Months or Most Recently Relevant to Health Maintenance Insurance [facility] Medicare Medicare [facility] Care Teams Transition Specialist Relationship Specialty Start Date End Date Marita Wetzel DO [address] [place] [address] PCP - General Family Medicine 11/14/22
--- OUTSIDE RECORDS SUMMARY | 2025-01-07 09:13 | XMS_ITS | Encounter Summary ---
Author Organization [facility] Address [address] [place] [address] Care Team Providers Care Fitter / Welder Name Role Phone Marita Wetzel Primary Care Provider +1- [phone] Encounter Details Date Type Department Care Team (Late st Contact Info) Description 05/07/2024 Lab Requisition [facility] - Main Lab [address] [place] [phone] Marily Gordillo MD [address] [place] [address] Chronic embolism and thrombosis of [...] LAB CHEMISTRY METHOD 05/10/2024 11:45 AM EST [facility] Potassium 3.8 3.5 - 5.5 [...] ORDERABLES Final Resul t Performing Organization Address City/[facility]/ZIP Co de Phone Number [facility] [address] [place] [address], [place] [phone] * Tacrolimus level (05/10/2024 5:50 AM EST) [...] performance characteristics determined by [facility]. This confirmation testing has not been cleared or approved by the FDA. The laboratory is regulated under CLIA as qualified to perform high-complexity testing. This test is used for patient testing purposes. It should not be regarded as investigational or for research. Test performed at [facility], [address] , [place], [place] [id number] Ashtyn Leigh MD, PhD - Product Sales Representative Blood Venous blood specimen / Unknown Venipuncture / Unknown 05/10/2024 5:50 AM EST 05/10/2024 9:58 AM EST Marily Gordillo MD LAB BLOOD ORDERABLES Final Resul t [facility] [address] [place] [address] documented in this encounter Visit Diagnoses Diagnosis Chronic embolism and thrombosis of unspecified vein Acute kidney failure, unspecified (CMS/[facility] V24) Acute kidney failure, unspecified documented in this encounter Care Teams Fitter / Welder Relationship Specialty Start Date End Date Marita Wetzel DO [address] [place] [address] PCP - General 01/09/23 documented as of this encounter
--- OUTSIDE RECORDS SUMMARY | 2025-01-07 09:13 | XMS_ITS | Encounter Summary ---
Author Organization [facility] Address [address] [place] [address] Care Team Providers Care Continuous Yarn Dyeing Machine Operator Name Role Phone Marita Wetzel DO Primary Care Provider +1- [phone] Encounter Details Date Type Department Care Team (Late st Contact Info) Description 05/30/2024 Lab Requisition [facility] - Main Lab [address] [facility] [place] [phone] Marily Gordillo MD [address] [place] [phone] Chronic embolism and thrombosis of unspecified vein; [...] unspecified documented in this encounter Care Teams Continuous Yarn Dyeing Machine Operator Relationship Specialty Start Date End Date Marita Wetzel DO [address] [place], [place] PCP - General 01/09/23 documented as of this encounter
--- OUTSIDE RECORDS SUMMARY | 2025-01-07 09:13 | XMS_ITS | Encounter Summary ---
Author Organization [facility] Address [address] [place] [address] Phone Care Team Providers Care Manager Line Name Role Phone Marita Wetzel DO Primary Care Provider Unava ilable Encounter Details Date Type Department Care Team (Late st Contact Info) Description 08/11/2023 Documentation Only [facility] [address] [place] [address] [place], [place], [place] [address] [place] [phone] Social History Tobacco Use Types Packs/Day Years [...] [facility] Vascular Access Center [address] [place] [address] 01/26/2025 9:30 AM EDT Clinical Support [facility] Vascular Access Center [address] [place] [place] [address] 03/08/2025 12:30 PM EST Scheduled Only [facility] [place] - V[facility] Center [address] [place] [address] documented as of this encounter Visit Diagnoses Not on filedocumented in this encounter Care Teams Manager Line Relationship Specialty Start Date End Date Marita Wetzel DO [address] [place] [address] PCP - General Family Medicine 11/14/22 documented as of this encounter
--- OUTSIDE RECORDS SUMMARY | 2025-01-07 09:13 | XMS_ITS | Encounter Summary ---
Author Organization [facility] Address [address] [place] [address] Phone Care Team Providers Care Medical Apparatus Model Maker Name Role Phone Marita Wetzel DO Primary Care Provider Unava ilable Encounter Details Date Type Department Care Team (Late st Contact Info) Description 10/24/2023 Documentation Only [facility] [address] [place] [address] [place], [place], [place] [address] [place] [phone] Social History Tobacco Use Types Packs/Day Years [...] Only [facility] Vascular Access Center [address] [place] [address] 01/26/2025 9:30 AM EDT Clinical Support [facility] Vascular Access [place] [address] [place] [address] 03/08/2025 12:30 PM EST Scheduled Only [facility] [place] - V[facility] Access Center [address] [place] [address] documented as of this encounter Visit Diagnoses Not on filedocumented in this encounter Care Teams Medical Apparatus Model Maker Relationship Specialty Start Date End Date Marita Wetzel DO [address] [place] [address] PCP - General Family Medicine 11/14/22 documented as of this encounter
--- OUTSIDE RECORDS SUMMARY | 2025-01-07 09:13 | XMS_ITS | Encounter Summary ---
Author Organization [facility] [place], Address [address] [place] [address] Phone Care Team Providers Care Dyer Helper Name Role Phone Marita Wetzel DO Primary Care Provider Unava ilable Encounter Details Date Type Department Care Team (Late st Contact Info) Description 04/02/2023 Documentation Only [facility] Dr Eufemia CONTRERAS [address] [place] [phone] Bernardo Doty MD [address] [facility] [place] [phone] Social History Tobacco Use Types Packs/Day Years [...] Of [facility] Vascular Access Center [address] [place] [address] [place] [address] 01/26/2025 9:30 AM EDT Clinical Support [facility] Vascular Access [address] [place] [address] 03/08/2025 12:30 PM EST Scheduled Only [facility] [place] - V[facility] Center [address] [place] [address] documented as of this encounter Visit Diagnoses Not on filedocumented in this encounter Care Teams Dyer Helper Relationship Specialty Start Date End Date Marita Wetzel DO [address] [place] [address] PCP - General Family Medicine 11/14/22 documented as of this encounter
--- OUTSIDE RECORDS SUMMARY | 2025-01-07 09:13 | XMS_ITS | Clinical Summary ---
Author Organization [employer] Address [address] [place] [address] 7[address] [place] [address] Care Team Providers Care Stump Blower Name Role Phone Damari Marita Primary Care Provider [phone] Allergies Active Allergy Reactions Criticality Noted Date Comments Codeine Hives High 11/12/2011 Other reaction(s): FAINTING/HIVES Oxycodone 07/30/2022 Oxycodone-Acetaminophen Hives High 10/05/2012 Other reaction(s): Nausea / Vomiting Medications * This document contains information received from the source organization and may not represent a complete record from that organization. Continuous Blood Gluc Spool Salvager (Qinec Seema 2 Kerrick) device 05/07/19 23 Active dorzolamide-ti molol (Cosopt) [...] Blood Gluc Sensor (FreeStyle Seema 2 Sensor) [facility] Use as directed Active mycophenolate (Myfortic) 360 [...] 4 times daily. 10/10/19 24 Active Procrit 20601 UNIT/ML injection 12/09/19 24 Active insulin lispro [...] ANXIETY 30 capsule 1 06/17/19 25 Active Lantus SoloStar 100 UNIT/ML penIndications :Type 2 diabetes mellitus with stage 3b chronic kidney disease, with long-term current use of insulin (CMS/HCC) INJECT 8 UNITS UNDER THE SKIN IN THE MORNING. 15 mL 3 12/09/19 25 Active Continuous Glucose Spool Salvager (FreeStyle Seema 3 Kerrick) deviceIndicati ons:Type 2 diabetes mellitus with stage 3b chronic kidney disease, with long-term current use of insulin (CMS/HCC) 1 each Once per day. Use as directed for CGM 1 each 12/11/19 Active Continuous Glucose Sensor (FreeStyle Seema 3 Plus Sensor) miscIndication s:Type 2 diabetes mellitus with stage 3b chronic kidney disease, with long-term current use of insulin (CMS/HCC) 1 each every 15 days. Apply 1 every 15 days as directed for CGM 2 each 12/11/19 Active glucose blood (FreeStyle Precision Nikko Test) test stripIndicatio ns:Type 2 diabetes mellitus with stage 3b chronic kidney disease, with long-term current use of insulin (CMS/HCC) Use to test blood sugar 3 times daily in case of CGM failure or extremes of BG 100 each 12/11/19 026 Active carvedilol (Coreg) 25 MG tablet TAKE 1 TABLET BY MOUTH EVERY DAY IN THE MORNING AND IN THE EVENING WITH MEALS 180 tablet 1 12/18/19 25 Active carvedilol (Coreg) 25 MG tablet TAKE 1 TABLET BY MOUTH EVERY DAY IN THE MORNING AND IN THE EVENING WITH MEALS 180 tablet 09/09/19 25 025 Discontinued Continuous Glucose Spool Salvager (FreeStyle Seema 3 Kerrick) deviceIndicati ons:Type 2 diabetes mellitus with stage 3b chronic kidney disease, with long-term current use of insulin (CMS/HCC) 1 each Once per day. Use as directed for CGM 1 each 12/08/19 025 Discontinued(Re order (will not [...] failure or extremes of BG 100 each 11 12/08/19 25 025 Discontinued(Re order (will not [...] Encounters Date Type Department Care Team Description 12/17/2024 Refill [facility] [address] [place] [address] Marita Wetzel DO 12/16/2024 Telephone [facility] [address] [place] [address] Marita Wetzel DO Chart Prep 12/09/2024 Refill [facility] [address] [place] [address] Faye Batista RN Type 2 diabetes mellitus with stage 3b chronic kidney disease, with long-term current use of insulin ([facility]) 12/08/2024 Orders Only [facility] [address] [place] [address] Cherry Landa MD 12/08/2024 Refill [facility] [address] [place] [phone] Cherry Landa MD Type 2 diabetes mellitus with stage 3b chronic kidney disease, with long-term current use of insulin ([facility]) 12/07/2024 11:20 AM EDT [facility] [address] [address] Cherry Landa MD Essential hypertension (Primary Dx); Type 2 diabetes mellitus with hyperglycemia, with long-term current use of insulin ([facility]); Type 2 diabetes mellitus with stage 3b chronic kidney disease, with long-term current use of insulin ([facility]); Pancreatic lesion; Other ascites 12/07/2024 Refill [facility] [address] [address] Cherry Landa MD Type 2 diabetes mellitus with stage 3b chronic kidney disease, with long-term current use of insulin ([facility]) 12/07/2024 Travel 12/06/[address] [address] Marita Wetzel DO telephone call 11/27/2024 Orders Only [facility] External Provider, [facility] 11/05/[address] [address] Marita Wetzel DO Results; Referral 11/02/2024 11:00 AM EDT [facility] [address] [address] Cherry Landa MD Abdominal enlargement; Pain of upper abdomen 11/02/2024 Travel 10/25/[address] [address] Marita Wetzel DO call back needed 10/14/[address] [address] Marita Wetzel DO ER Follow-up from Last [...] 08/13/2023 08/12/2018 Depression Screening 10/09/2023 10/08/2022, 10/09/19 SDOH Screening 07/14/2024 07/15/2023 Lipid Panel 10/05/2024 10/06/2023 Tobacco Screening 12/08/2024 12/09/2023 COVID-19 Vaccine ( season) 2024 02/01/2022, 06/22/2020, [...] Component 6.4( 11:38 AM EDT) No Carmen Becker PharmD Record your blood sugar as directed [...] disease, with long-term current use of insulin ([facility]) POCT GLYCATED HEMOGLOBIN, TOTAL Routine 12/07/2024 11:38 AM EDT Type 2 diabetes mellitus with stage 3b chronic kidney disease, with long-term current use of insulin ([facility]) CT ABDOMEN PELVIS WO CONTRAST Routine 11/27/2024 2:54 PM EDT COMPREHENSIVE METABOLIC PANEL Routine 11/27/2024 12:28 PM EDT CBC WITH AUTO DIFFERENTIAL Routine 11/27/2024 12:28 PM EDT XR ELBOW 3+ VIEWS LEFT Routine 5 10:15 AM EDT XR HIP LEFT WITH [...] PM EDT Narrative 11/27/2024 2:55 PM EDT [place] [address] CT Scan Report Signed Patient: Alix Sharp MR#: [id number] 43 : 1960 Acct:[id number] Age/Sex: 64 / F ADM Date: 11/27/24 Loc: HO.ED Attending Dr: Ordering Physician: Shavonne Lima NP Date of Service: 11/27/24 Procedure(s): CT abdomen pelvis wo IV con Accession Number(s): [id number] cc: Marita Wetzel DO; Shavonne Lima NP Report Number: [id number]: Total DLP = 644.00 mGy-cm CLINICAL HISTORY: [...] 11/27/24 1455 DD/ 1454 TD/TT: 11/27/24 145 Academic Affairs Specialist: Procedure Note Donotuseinterpreter, Image - 11/27/[address] [place] [address] [address] Scan Report Signed Patient: Alix Sharp BMR#: [id number] 43 : 1960cct:[id number] Age/Sex: 64 / FADM Date: 11/27/24 Loc: HO.ED Attending Dr: Ordering Physician: Shavonne Lima NP Date of Service: 11/27/24 Procedure(s): CT abdomen pelvis wo IV con Accession Number(s): [id number] cc: Marita Wetzel DO; Shavonne Lima NP Report Number: [id number]: Total DLP = 644.00 mGy-cm CLINICAL HISTORY: [...] by Kaitlynn Guillaume MD in OV> 11/27/24 145 DD/ 53 TD/TT: 11/27/241453 Academic Affairs Specialist: [facility] External Provider IMG CT PROCEDURES Final Result * (ABNORMAL) CBC auto differential (11/27/2024 12:28 PM EDT) White Blood Count 5.8 4.8 - 10.8 X10*3/uL [facility] Red Blood Count 3.88(L) 4.20 - 5.50 X10*6/uL [facility] Hemoglobin 10.7(L) 12.0 - 16.0 g/dl [facility] Hematocrit 35.1(L) 37.0 - 47.0 % [facility] Mean Corpuscular Volume 90.5 80.0 - 98.0 fL [facility] Mean Corpuscular Hemoglobin 27.6 27.0 - 33.0 pg [facility] Mean Corpuscular HGB Conc 30.5(L) 31.0 - 35.0 g/dl [facility] Red Cell Distribution Width 18.1(H) 11.0 - 16.0 % [facility] Platelet Count 122(L) 160 - 400 X10*3/uL [facility] Mean Platelet Volume 9.4 9.4 - 12.3 fL [facility] Neutrophils Percent Auto 83.7(H) 45 - 73 % [facility] Imm Gran Pct Auto 0.3 0.0 - 0.4 % [facility] Lymphocytes Percent Auto 8.6(L) 20 - 40 % [facility] Monocytes Percent Auto 6.7 2 - 11 % [facility] Eosinophils Percent Auto 0.5 0 - 4 % [facility] Basophils Percent Auto 0.2 0 - 2 % [facility] NRBC Pct Auto 0.0 0.0 - 0.2 /100WBC [facility] Neutrophils Absolute Auto 4.9 2.0 - 8.3 x10*3/uL [facility] Imm Gran Abs Auto 0.02 0.00 - 0.03 X10*3/uL [facility] Lymphocytes Absolute Auto 0.5(L) 1.2 - 4.9 X10*3/uL [facility] Monocytes Absolute Auto 0.4 0.1 - 1.2 X10*3/uL [facility] Eosinophils Absolute Auto 0.0 0.0 - 0.4 X10*3/uL [facility] Basophils Absolute Auto 0.0 0.0 - 0.2 X10*3/uL [facility] NRBC Abs Auto 0.000 0.0 - 0.012 X10*3/uL [facility] 11/27/2024 12:2 8 PM EDT 11/27/2024 12:36 PM EDT Narrative [facility] - 11/27/2024 12:39 PM EDT patient has power port . RN to access port when in room us Generic External Data Provider LAB BLOOD ORDERAB LES Final Result [facility] [address] [place] [address] [phone] * (ABNORMAL) Comprehensive Metabolic Panel (11/27/2024 12:28 PM EDT) Sodium 138 135 - 145 mmol/L [facility] Potassium 4.3 3.3 - 5.1 mmol/L [facility] Chloride 103 96 - 108 mmol/L [facility] Carbon Dioxide 24 22 - 29 mmol/L [facility] Anion Gap 15 12 - 20 [facility] Urea Nitrogen (BUN) 40(H) 9 - 16 mg/dL [facility] Creatinine, Serum 4.26(HH) 0.5 - 1.4 mg/dL [facility] Comment:Critical value for t est(s): CREA Results called to and readback by: ALISIA Person calling: HO.CIRCOD Date:11/27/24 Time: 1256 Creatinine Clr Calc Pharmacy 12.9 [facility] Comment:Provided height and weight: 170.18 cm,72.575 kg.eGFR (calculated from the MDRD study equation) and eCrCl(calculated from the Cockcroft-Gault equation) are based ondifferent parameters and may not yield comparable results.If eCrCl result is absurd, please check patient'sheight/weight. Estimated Glomerular Filt Rate 10 [facility] Comment:Chronic Kidney Disea se: Estimated GFR < 60 mL/min/[id number] Kidney Disease: Estimated GFR < 15 mL/min/1.73m2 Glucose 153(H) 60 - 115 mg/dL [facility] Calcium 8.2(L) 8.4 - 10.2 mg/dL [facility] Bilirubin, Total 0.4 0.0 - 1.0 mg/dL [facility] Aspartate Amino Transferase 20 5 - 31 U/L [facility] Alanine Aminotransferase <6 0 - 31 U/L [facility] Total Protein 7.0 6.5 - 8.0 g/dL [facility] Albumin Level 3.3(L) 3.5 - 5.0 g/dL [facility] Alkaline Phosphatase 111 39 - 117 U/L [facility] 11/27/2024 12:2 8 PM EDT 11/27/2024 12:36 PM EDT Narrative [facility] - 11/27/2024 12:57 PM EDT patient has power port . RN to access port when in room us Generic External Data Provider LAB BLOOD ORDERAB LES Final Result [facility] [address] [place] [address] [phone] * XR Elbow 3+ Views Left (11/27/2024 10:15 AM EDT) Anatomical Region Laterality Modality Upper Extremities, Elbow Left Radiogr aphic Imaging 11/27/2024 10:1 5 AM EDT Narrative 11/27/2024 10:17 AM EDT [address] [address] XRay Report Signed Patient: Alix Sharp MR#: [id number] 43 : 1960 Acct:[id number] Age/Sex: 64 / F ADM Date: 11/27/24 Loc: HO.ED Attending Dr: Ordering Physician: Generic ED Physician Date of Service: 11/27/24 Procedure(s): XR elbow LT min 3V Accession Number(s): [id number] cc: Generic ED Physician; Marita Wetzel DO [...] 11/27/24 1016 DD/ 1015 TD/TT: 11/27/24 1015 Academic Affairs Specialist: Procedure Note Donotclifinterpreter, Image - 11/27/[address] [address] XRay Report Signed Patient: Alix Sharp BMR#: [id number] 43 : 1960cct:[id number] Age/Sex: 64 / FADM Date: 11/27/24 Loc: HO.ED Attending Dr: Ordering Physician: Generic ED Physician Date of Service: 11/27/24 Procedure(s): XR elbow LT min 3V Accession Number(s): [id number] cc: Generic ED Physician; Marita Wetzel DO [...] 11/27/24 1016 DD/ 1015 TD/TT: 11/27/24 1015 Academic Affairs Specialist: us [facility] External Provider IMG XR PROCEDURES Final Result * XR Hip left with Pelvis 1 view (11/27/2024 10:00 AM EDT) Anatomical Region Laterality Modality Lower Extremities, Hip Bilateral Radiograp hic Imaging 11/27/2024 10:0 0 AM EDT Narrative 11/27/2024 10:01 AM EDT [address] [address] XRay Report Signed Patient: Alix Sharp MR#: [id number] 43 : 1960 Acct:[id number] Age/Sex: 64 / F ADM Date: 11/27/24 Loc: HO.ED Attending Dr: Ordering Physician: Generic ED Physician Date of Service: 11/27/24 Procedure(s): XR hip LT w PEL1V Accession Number(s): [id number] cc: Generic ED Physician; Marita Wetzel DO CLINICAL HISTORY: fall of left hip 3 view, pelvis and left hip Comparison: None provided Findings: Curvilinear lucent line projecting over the medial aspect of the right inferior ischiopubic ramus may be artifactual or due to an age-indeterminate fracture. Correlate clinically. Otherwise no acute fracture. Three proximal femoral screws without hardware complications. Rpsj-nj-[id number] degenerative narrowing of the superomedial aspects of [...] 11/27/24 1001 DD/ 1000 TD/TT: 11/27/24 1000 Academic Affairs Specialist: Procedure Note Donotuseinterpreter, Image - 11/27/2024 [place] [address] XRay Report Signed Patient: Alix Sharp BMR#: [id number] 43 : 1960cct:[id number] Age/Sex: 64 / FADM Date: 11/27/24 Loc: HO.ED Attending Dr: Ordering Physician: Jim ED Physician Date of Service: 11/27/24 Procedure(s): XR hip LT w PEL1V Accession Number(s): [id number] cc: Generic ED Physician; Marita Wetzel DO CLINICAL HISTORY: fall of left hip 3 view, pelvis and left hip Comparison: None provided Findings: Curvilinear lucent line projecting over the medial aspect of the right inferior ischiopubic ramus may be artifactual or due to an age-indeterminate fracture. Correlate clinically. Otherwise no acute fracture. Three proximal femoral screws without hardware complications. Cmdg-qh-fazkqrme degenerative narrowing of the superomedial aspects of [...] 11/27/24 1001 DD/ 1000 TD/TT: 11/27/24 1000 Academic Affairs Specialist: [facility] External Provider IMG XR PROCEDURES Final [...] AM EDT Narrative 08/03/2023 8:29 PM EDT [facility] [place] [address] Mammography Report Signed Patient: Alix Dennis MR#: [id number] : 1960 Acct:[id number] Age/Sex: 63 / F ADM Date: 07/17/23 Loc: HO.MAMMO Attending Dr: Marita Wetzel DO Ordering Physician: Jurcsak,Marita A DO Results: 2B enign Findings Date of Service: 07/17/23 Follow Up: 1 Year From Orig inal Mammogram Procedure(s): MM tomosynthesis screening BI Accession Number(s): [id number] cc: Marita Wetzel DO EXAMINATION: MM SCREENING [...] MD in OV> 08/03/232024 DD/ 1045 TD/TT: Academic Affairs Specialist: Procedure Note Donotuseinterpreter, Image - 08/03/2023 Trav [facility] [address] [place] [address] Mammography Report Signed Patient: Alix Dennis FMR#: [id number] : 1Acct:[id number] Age/Sex: 63 / FADM Date: 07/17/23 Loc: RICHY Attending Dr: Marita Wetzel DO Ordering Physician: Marita Wetzelults: 2B enign Findings Date of Service: 07/17/23Follow Up: 1 Year From Orig inal Mammogram Procedure(s): MM tomosynthesis screening BI Accession Number(s): [id number] cc: Marita Wetzel DO EXAMINATION: MM SCREENING [...] MD in OV> 08/03/232024 DD/ 1045 TD/TT: Academic Affairs Specialist: Marita Wetzel DO IMG BI PROCEDURES Edited Res ult - Final * Hm Pap Smear (08/12/2018) Pap Negative for intraephithelial lesion or malignancy Negative for intraephithelial lesion or malignancy, Other HPV Undetected Undetected, Indeterminate, Quantitative, Not Detected Historical Provider HEALTH MAINTENANCE Final Result from Last 3 Months or Most Recently Relevant to Health Maintenance Insurance MEDICARE [facility] [employer] Care Teams Stump Blower Relationship Specialty Start Date End Date Marita Wetzel DO [address] [place] [id number] PCP - General Family Medicine 04/21/18 [facility] 05/22/24
--- OUTSIDE RECORDS SUMMARY | 2025-01-07 09:13 | XMS_ITS | Encounter Summary ---
Author Organization [facility], Address [address] [place] [address] Phone Care Team Providers Care Reception Manager Name Role Phone Marita Wetzel DO Primary Care Provider Unava ilable Encounter Details Date Type Department Care Team (Late st Contact Info) Description 09/11/2023 Documentation Only [facility] [address] [place] [phone] Pauline Aguayo [address] [place] [phone] Social History Tobacco Use Types Packs/Day Years [...] Only [facility] [address] [place] [address] 01/26/2025 9:30 AM EDT Clinical Support [facility] [address] [place] [address] 03/08/2025 12:30 PM EST Scheduled Only [facility] [address] [place] [address] documented as of this encounter Visit Diagnoses Not on filedocumented in this encounter Care Teams Reception Manager Relationship Specialty Start Date End Date Marita Wetzel DO [address] [place] [address] PCP - General Family Medicine 11/14/22 documented as of this encounter
--- OUTSIDE RECORDS SUMMARY | 2025-01-07 09:13 | XMS_ITS | Encounter Summary ---
Author Organization [facility] Address [address] [place] [address] Phone Care Team Providers Care Art Manager Name Role Phone Marita Wetzel DO Primary Care Provider Unava ilable Encounter Details Date Type Department Care Team (Late st Contact Info) Description 09/12/2023 Documentation Only [facility] [address] [place] [address] [place], [place], [place] [address] [place] [phone] Social History Tobacco Use Types Packs/Day Years [...] [facility] [address] [place] [address] 01/26/2025 9:30 AM EDT Clinical Support [facility] Access [place] [address] [place] [address] 03/08/2025 12:30 PM EST Scheduled Only [facility] [place] Center [address] [place] [address] documented as of this encounter Visit Diagnoses Not on filedocumented in this encounter Care Teams Art Manager Relationship Specialty Start Date End Date Marita Wetzel DO [address] [place] [address] PCP - General Family Medicine 11/14/22 documented as of this encounter
--- OUTSIDE RECORDS SUMMARY | 2025-01-07 09:13 | XMS_ITS | Encounter Summary ---
Author Organization [facility] [place], Address [address] [place] [address] Phone Care Team Providers Care Business Information Manager Name Role Phone Marita Wetzel DO Primary Care Provider Unava ilable Encounter Details Date Type Department Care Team (Late st Contact Info) Description 01/03/2025 Treatment [facility], [address] [place] [address] Jeanne Bailey MD [address] [place] [address] [place] [phone] End stage renal disease; Dependence on renal [...] Date: 01/03/2025 This patient was personally seen [id number] for a basic visit as part of routine monthly dialysis care for end stage renal disease. Attending General Farmer: JEANNE BAILEY MD Dialysis Location: [facility] Schedule: Shift: 3 OVERVIEW Patient is stable. COMMENTS: 11/01 Kt/V suboptimal increase time to 3 hours and 30 minutes. HOME MEDICATIONS [facility] Medications carvedilol 25 mg tablet Take [...] times a day. [Take with meals] [facility] Allergies Allergen: codeine Reaction: Unknown Allergen: oxycodone [...] K, 2.5 Ca, 1.0 Mg, 100 Dextrose ([id number]) Sodium: 137 Bicarb: 35 Pre Dialysis Vitals [...] reviewed. Dietary adjustments made in conjunction with special education professor. 7.Transplant: The patient is being evaluated [...] reviewed. Dietary adjustments made in conjunction with special education professor. 7.Transplant: The patient is being evaluated [...] reviewed. Dietary adjustments made in conjunction with special education professor. 7.Transplant: The patient is being evaluated [...] reviewed. Dietary adjustments made in conjunction with special education professor. 7.Transplant: The patient is being evaluated [...] reviewed. Dietary adjustments made in conjunction with special education professor. 7.Transplant: Not a candidate. 07/21/24 Patient [...] reviewed. Dietary adjustments made in conjunction with special education professor. 7.Transplant: not a candidate. 06/21/24 Patient is stable, recently cd from [facility] after episode of pneumonia Medications reviewed [...] reviewed. Dietary adjustments made in conjunction with special education professor. Transplant: Not a candidate. 05/24/24 Patient [...] reviewed. Dietary adjustments made in conjunction with special education professor. 7.Transplant: Not a candidate. decreasing tacrolimus [...] reviewed. Dietary adjustments made in conjunction with special education professor. Transplant: The patient will be re-evaluated [...] [facility] Access [address] [place] [address] 01/26/2025 9:30 AM EDT Clinical Support [facility] Access [address] [place] [address] 03/08/2025 12:30 PM EST Scheduled Only [facility] Access [address] [place] [address] documented as of this encounter Visit Diagnoses Diagnosis End stage renal disease Dependence on renal dialysis documented in this encounter Care Teams Business Information Manager Relationship Specialty Start Date End Date Marita Wetzel DO [address] [place] [address] PCP - General Family Medicine 11/14/22 documented as of this encounter
--- OUTSIDE RECORDS SUMMARY | 2025-01-07 09:13 | XMS_ITS | Encounter Summary ---
Author Organization [facility] [place] [address] [place] [address] Phone Care Team Providers Care Message Clerk Name Role Phone Marita Wetzel DO Primary Care Provider Unava ilable Encounter Details Date Type Department Care Team (Late st Contact Info) Description 03/18/2023 Documentation Only [facility] [address] [place] [phone] Srinivas Agrwaal MD [address] [facility] [place] [phone] Social History Tobacco Use Types Packs/Day Years [...] [facility] V[facility] Access [address] [place] [phone] 01/26/2025 9:30 AM EDT Clinical Support [facility] Access [address] [place] [address] 03/08/2025 12:30 PM EST Scheduled Only [facility] [place] - [facility] Center [address] [place] [phone] documented as of this encounter Visit Diagnoses Not on filedocumented in this encounter Care Teams Message Clerk Relationship Specialty Start Date End Date Marita Wetzel DO [address] [place] [address] PCP - General Family Medicine 11/14/22 documented as of this encounter
--- OUTSIDE RECORDS SUMMARY | 2025-01-07 09:13 | XMS_ITS | Encounter Summary ---
Author Organization [facility] [place], Address PO [facility] [place] [address] Phone Care Team Providers Care Heat Treater Helper Name Role Phone Marita Wetzel DO Primary Care Provider Unava ilable Reason for Visit * Reason Comments Med Refill Encounter Details Date Type Department Care Team (Late Contact Info) Description 06/18/2024 Refill [facility] [place] [address] [place] [phone] Srinivas Agrawal MD [address] [facility] [address] [place] [phone] Social History Tobacco Use Types Packs/Day Years [...] Only [facility] V[facility] Access Center [address] [place] [phone] 01/26/2025 9:30 AM EDT Clinical Support [facility] V[facility] Access Center [address] [place] [phone] 03/08/2025 12:30 PM EST Scheduled Only [facility] [place], - Vascular Access Center [address] [place] [address] documented as of this encounter Procedures Procedure Name Priority Date/Time Associated Diagnosis Comments HD KINETICS Routine 06/18/2024 POST CHEMISTRY Routine 06/18/2024 IMMUNO CHEMISTRY Routine 06/18/2024 HEMATOLOGY Routine 06/18/2024 CHEMISTRY Routine 06/18/2024 CHEMISTRY Routine 06/18/2024 [facility] RESULTS Routine 06/18/2024 documented in this encounter Results * [facility] Lab Results (06/18/2024) Pathologist [facility] eKt/V ([place]) 1.28 [facility] Center WSTDKT/V 0.8 [facility] Center spKt/V (Daugirdas II) 1.50 [facility] 06/18/2024 06/18/2024 Ivet Ordering Provider LAB BLOOD ORDERABLES Final Result [facility] Contact Performing lab Unknown, [place] * HD KINETICS (06/18/2024) Pathologist [facility] % Urea Reduction 70 65 - [...] 06/22/2024 Unless otherwise specified, test(s) performed at: [facility], [address] [place] [address] LICENSED NUCLEAR OPERATOR: Dwayne Fuentes M.D. For any questions, please call customer service at FREQUENCY:MONTHLY Resulting Agency Comment Specimen source: Plasma Srinivas Agrawal MD LAB BLOOD ORDERABLES Final Result [facility] See order comments or contact performing lab Unknown, [place] * IMMUNO CHEMISTRY (06/18/2024) Pathologist [facility] Hep B Surface Ag Negative Negative [facility] 06/18/2024 06/19/2024 11: 21 AM EST Narrative Resulting Agency Comment Specimen source: Serum Srinivas Agrawal MD LAB BLOOD ORDERABLES Final Result [facility] See order comments or contact performing lab Unknown, [place] * (ABNORMAL) [facility] Chemistry (06/18/2024) Pathologist [facility] BUN 44(H) 6 - 19 mg/dL [facility] [...] 06/19/2024 Unless otherwise specified, test(s) performed at: [place] [address] LICENSED NUCLEAR OPERATOR: Dwayne Fuentes M.D. For any questions, please call customer service at FREQUENCY:MONTHLY Resulting Agency Comment Specimen source: Serum Srinivas Agrawal MD LAB BLOOD ORDERABLES Edite d Result - Final Performing Organization Address [facility]/ZIP Co de Phone Number [facility] [employer] See order comments or contact performing lab Unknown, [place] * (ABNORMAL) HEMATOLOGY (06/18/2024) Hemoglobin 7.9(L) 12.0 - 16.0 g/dL [facility] Hemoglobin x 3 23.7(L) 36.0 - 48.0 % [facility] 06/18/2024 06/19/2024 12: 24 PM EST Narrative [facility] - 06/19/2024 Unless otherwise specified, test(s) performed at: [facility] [address] LICENSED NUCLEAR OPERATOR: Dwanye Fuentes M.D. For any questions, please call customer service at FREQUENCY:MONTHLY Resulting Agency Comment Specimen source: Blood Srinivas Agrawal MD LAB BLOOD ORDERABLES Final Result Performing Organization Address City/[facility]/ZIP Co de Phone Number [facility] [employer] See order comments or contact performing lab Unknown, [place] * (ABNORMAL) [facility] Chemistry (06/18/2024) PTH 145(H) 16 - 80 pg/mL [facility] 06/18/2024 06/19/2024 11: 40 AM EST Narrative SANTY - 06/19/2024 Unless otherwise specified, test(s) performed at: [facility], [address] [place] [address] LICENSED NUCLEAR OPERATOR: Dwayne Fuentes M.D. For any questions, please call customer service at FREQUENCY:MONTHLY Resulting Agency Comment Specimen source: Plasma us Srinivas Agrawal MD LAB BLOOD ORDERABLES Final Result [facility] See order comments or contact performing lab Unknown, [place] documented in this encounter Visit Diagnoses Not on filedocumented in this encounter Care Teams Heat Treater Helper Relationship Specialty Start Date End Date Marita Wetzel DO [address] [place] [address] PCP - General Family Medicine 11/14/22 documented as of this encounter
--- OUTSIDE RECORDS SUMMARY | 2025-01-07 09:13 | XMS_ITS | Encounter Summary ---
Author Organization [facility] [place], Address PO [facility] [place] [address] Phone Care Team Providers Care Mangle Press Catcher Name Role Phone Marita Wetzel DO Primary Care Provider Unava ilable Reason for Visit * Reason Comments Med Refill Encounter Details Date Type Department Care Team (Late Contact Info) Description 06/30/2024 Refill [facility] [place] [address] [place] [phone] Srinivas Agrawal MD [address] [facility] [place] [address] Social History Tobacco Use Types Packs/Day Years [...] Only [facility] Vascular Access Center [address] [place] [phone] 01/26/2025 9:30 AM EDT Clinical Support [facility] V[facility] Access Center [address] [place] [phone] 03/08/2025 12:30 PM EST Scheduled Only [facility] [place] - [facility] Center [address] [place] [address] documented as of this encounter Procedures Procedure Name Priority Date/Time Associated Diagnosis Comments HEMATOLOGY Routine 06/30/2024 documented in this encounter Results * (ABNORMAL) HEMATOLOGY (06/30/2024) Hemoglobin 6.3(L) 12.0 - 16.0 g/dL [facility] Hemoglobin x 3 18.9(L) 36.0 - 48.0 % [facility] 06/30/2024 07/01/2024 10: 49 AM EDT Narrative [facility] - 07/01/2024 Unless otherwise specified, test(s) performed at: [facility], [address] [place] [address] NEW ACCOUNT INTERVIEWER: Dwayne Fuentes M.D. For any questions, please call customer service at FREQUENCY:OTHER Resulting Agency Comment Specimen source: Blood us Srinivas Agrawal MD LAB BLOOD ORDERABLES Final Result [facility] See order comments or contact performing lab Unknown, [place] documented in this encounter Visit Diagnoses Not on filedocumented in this encounter Care Teams Mangle Press Catcher Relationship Specialty Start Date End Date Marita Wetzel DO [address] [place] [address] PCP - General Family Medicine 11/14/22 documented as of this encounter
--- OUTSIDE RECORDS SUMMARY | 2025-01-07 09:14 | XMS_ITS | Encounter Summary ---
Author Organization [facility] Address [address] [place] [address] Care Team Providers Care Negative Cleaner Name Role Phone Marita Wetzel DO Primary Care Provider +1- [phone] Encounter Details Date Type Department Care Team (Late st Contact Info) Description 05/15/2024 Lab Requisition [facility] - Main Lab [address] [facility] [place] [phone] Marily Gordillo MD [address] [place] [phone] Chronic embolism and thrombosis of unspecified vein; [...] unspecified documented in this encounter Care Teams Negative Cleaner Relationship Specialty Start Date End Date Marita Wetzel DO [address] [place], [place] PCP - General 01/09/23 documented as of this encounter
--- OUTSIDE RECORDS SUMMARY | 2025-01-07 09:14 | XMS_ITS | Encounter Summary ---
Author Organization [facility] Address [address] [place] [address] Care Team Providers Care Make Up Girl Name Role Phone Mary JaneMarita yousif Primary Care Provider +1- [phone] Encounter Details Date Type Department Care Team (Late st Contact Info) Description 02/24/2024 Lab Requisition [facility] - Main Lab [address] [facility] [place] [address] Norbert Lopez MD [address] [facility] [address] [facility] [address] Encounter for other specified prophylactic [...] Travel phlebotomy fee (02/24/2024 12:45 PM EST) [facility] TRAVEL PHLEBOTOMY FEE Completed 02/24/2024 2:01 PM EST [facility] Blood Venous blood specimen / Unknown Venipuncture / Unknown 02/24/2024 12:45 PM EST 02/24/2024 1:29 PM EST Norbert Lopez MD LAB BLOOD ORDERABLES Final Resul t Performing Organization Address [facility] Co de Phone Number [facility] [address] [place] [address], [place] [phone] * (ABNORMAL) Heparin and low molecular weight anti Xa level (02/24/2024 12:45 PM EST) [facility] Heparin Anti-Xa 0.28(L) 0.30 - 0.70 I Unit/mL LAB COAGULATION METHOD 02/24/2024 2:02 PM EST [facility] Blood Venous blood specimen / Unknown Venipuncture / Unknown 02/24/2024 12:45 PM EST 02/24/2024 1:29 PM EST Narrative [facility] - 02/24/2024 2:02 PM EST Therapeutic range listed is for Unfractionated Heparin. LMW Heparin therapeutic range: 0.50-1.20 IU/mL Norbert Lopez MD LAB BLOOD ORDERABLES Final Resul t Performing Organization Address [facility]/ZIP Co de Phone Number [facility] [address] [place] [address], [place] [phone] * (ABNORMAL) Basic metabolic panel (02/24/2024 12:45 PM EST) [facility] Sodium 137 133 - 145 mmol/L LAB CHEMISTRY METHOD 02/24/2024 3:10 PM [facility] Potassium 3.7 3.5 - 5.5 mmol/L LAB CHEMISTRY METHOD 02/24/2024 3:10 PM [facility] Chloride 104 96 - 110 mmol/L LAB CHEMISTRY METHOD 02/24/2024 3:10 PM [facility] CO2 22 21 - 32 mmol/L LAB CHEMISTRY METHOD 02/24/2024 3:10 PM [facility] Anion Gap 11 3 - 11 LAB CHEMISTRY METHOD 02/24/2024 3:10 PM [facility] Glucose 163(H) 70 - 100 mg/dL LAB CHEMISTRY METHOD 02/24/2024 3:10 PM [facility] BUN 33(H) 5 - 25 mg/dL LAB CHEMISTRY METHOD 02/24/2024 3:10 PM [facility] Creatinine 3.25(H) 0.50 - 1.10 mg/dL LAB CHEMISTRY METHOD 02/24/2024 3:10 PM [facility] eGFR 15(L) >=60 mL/min/1. 73m2 LAB CHEMISTRY METHOD 02/24/2024 3:10 PM [facility] Comment:Calculation based on the Chronic Kidney Disease Epidemiology Collaboration (CKD-EPI) equation refit without adjustment for race. BUN/Creatinine Ratio 10.2 LAB CHEMISTRY METHOD 02/24/2024 3:10 PM [facility] Calcium 9.4 8.5 - 10.5 mg/dL LAB CHEMISTRY METHOD 02/24/2024 3:10 PM [facility] Blood Venous blood specimen / Unknown Venipuncture / Unknown 02/24/2024 12:45 PM EST 02/24/2024 1:29 PM EST us Norbert Lopez MD LAB BLOOD ORDERABLES Final Resul t [facility] [address] [place] [address], * (ABNORMAL) Complete blood count (02/24/2024 12:45 PM EST) [facility] WBC 11.3(H) 4.8 - 10.8 K/mcL LAB HEMETOLOGY METHOD 02/24/2024 1:38 PM [facility] RBC 3.30(L) 3.80 - 4.80 M/mcL LAB HEMETOLOGY METHOD 02/24/2024 1:38 PM [facility] Hemoglobin 9.2(L) 11.5 - 16.0 g/dL LAB HEMETOLOGY METHOD 02/24/2024 1:38 PM [facility] Hematocrit 31.3(L) 35.0 - 47.0 % LAB HEMETOLOGY METHOD 02/24/2024 1:38 PM [facility] MCV 95.4 79.0 - 98.0 FL LAB HEMETOLOGY METHOD 02/24/2024 1:38 PM [facility] MCH 28.0 27.0 - 32.0 pcg LAB HEMETOLOGY METHOD 02/24/2024 1:38 PM [facility] MCHC 29.4(L) 32.0 - 37.0 g/dL LAB HEMETOLOGY METHOD 02/24/2024 1:38 PM [facility] RDW 16.6(H) 11.0 - 15.0 % LAB HEMETOLOGY METHOD 02/24/2024 1:38 PM [facility] Platelets 278 130 - 400 K/mcL LAB HEMETOLOGY METHOD 02/24/2024 1:38 PM [facility] MPV 10.7 7.0 - 11.0 FL LAB HEMETOLOGY METHOD 02/24/2024 1:38 PM [facility] NRBC 0.0 <1.0 % LAB HEMETOLOGY METHOD 02/24/2024 1:38 PM EST [facility] NRBC Absolute 0.00 <0.10 K/mcL LAB HEMETOLOGY METHOD 02/24/2024 1:38 PM EST [facility] Blood Venous blood specimen / Unknown Venipuncture / Unknown 02/24/2024 12:45 PM EST 02/24/2024 1:29 PM EST us Norbert Lopez MD LAB BLOOD ORDERABLES Final Resul t [facility] [address] [place] [address], documented in this encounter Visit Diagnoses Diagnosis Encounter for other specified prophylactic measures Acute kidney failure, unspecified (CMS/HCC V24) Acute kidney failure, unspecified documented in this encounter Care Teams Make Up Girl Relationship Specialty Start Date End Date Marita Wetzel DO [address] [place] [address] PCP - General 01/09/23 documented as of this encounter
--- OUTSIDE RECORDS SUMMARY | 2025-01-07 09:14 | XMS_ITS | Encounter Summary ---
Author Organization [facility] Address [address] [place] [address] Care Team Providers Care Superintendent Menagerie Name Role Phone Marita Wetzel Primary Care Provider +1- [phone] Encounter Details Date Type Department Care Team (Late st Contact Info) Description 04/30/[address] [facility] - Main Lab [address] [place] [phone] Marily Gordillo MD [address] [place] [phone] Anemia, unspecified; Chronic embolism and thrombosis of [...] t Performing Organization Address [facility]/ZIP Co de Phone Number [facility] [address] [place] [address], [place] [phone] * (ABNORMAL) Ferritin (05/03/2024 6:09 AM EST) Ferritin 2,737(H) 8 - 252 ng/mL LAB CHEMISTRY METHOD 05/03/2024 10:[address] [facility] Blood Venous blood specimen / Unknown Venipuncture / Unknown 05/03/2024 6:09 AM EST 05/03/2024 9:29 AM EST us Marily Gordillo MD LAB BLOOD ORDERABLES Final Resul t Performing Organization Address City/[facility]/ZIP Co de Phone Number [facility] [address] [place] [address], [place] [phone] documented in this encounter Visit Diagnoses Diagnosis Anemia, unspecified Chronic embolism and thrombosis of unspecified vein Acute kidney failure, unspecified (CMS/HCC V24) Acute kidney failure, unspecified documented in this encounter Care Teams Superintendent Menagerie Relationship Specialty Start Date End Date Marita Wetzel DO [address] [place] [address] PCP - General 01/09/23 documented as of this encounter
--- OUTSIDE RECORDS SUMMARY | 2025-01-07 09:14 | XMS_ITS | Encounter Summary ---
Author Organization [facility] Address [address] [place] [address] Care Team Providers Care Vehicle Refinisher Name Role Phone Marita Wetzel Primary Care Provider +1- [phone] Encounter Details Date Type Department Care Team (Late st Contact Info) Description 03/30/2024 Lab Requisition [facility] - Main Lab [address] [facility] [place] [address] Catalina Burr MD [address] [place] [address] Chronic embolism and thrombosis of unspecified vein; [...] LAB CHEMISTRY METHOD 03/31/2024 12:06 PM EST [facility] Blood Venous blood specimen / Unknown Venipuncture / Unknown 03/31/2024 9:23 AM EST 03/31/2024 11:25 AM EST Catalina Burr MD LAB BLOOD ORDERABLES Final Resul t Performing Organization Address [facility]/ZIP Co de Phone Number [facility] [address] [place] [address], [place] [phone] * (ABNORMAL) Ferritin (03/31/2024 9:23 AM EST) Ferritin 6,203(H) 8 - 252 ng/mL LAB CHEMISTRY METHOD 03/31/2024 12:10 PM EST [facility] Blood Venous blood specimen / Unknown Venipuncture / Unknown 03/31/2024 9:23 AM EST 03/31/2024 11:25 AM EST Catalina Burr MD LAB BLOOD ORDERABLES Final Resul t Performing Organization Address [facility]/ZIP Co de Phone Number [facility] [address] [place] [address], [place] [phone] documented in this encounter Visit Diagnoses Diagnosis Chronic embolism and thrombosis of unspecified vein Acute kidney failure, unspecified (CMS/HCC V24) Acute kidney failure, unspecified documented in this encounter Care Teams Vehicle Refinisher Relationship Specialty Start Date End Date Marita Wetzel DO [address] [place] [address] PCP - General 01/09/23 documented as of this encounter
--- OUTSIDE RECORDS SUMMARY | 2025-01-07 09:14 | XMS_ITS | Encounter Summary ---
Author Organization [facility] Address [address] [place] [address] Care Team Providers Care Military Professional Name Role Phone Marita Wetzel DO Primary Care Provider +1- [phone] Encounter Details Date Type Department Care Team (Late st Contact Info) Description 04/29/2024 Lab Requisition [facility] - Main Lab [address] [facility] [place] [phone] Marily Gordillo MD [address] [place] [phone] Chronic embolism and thrombosis of unspecified vein; [...] unspecified documented in this encounter Care Teams Military Professional Relationship Specialty Start Date End Date Marita Weztel DO [address] [place], [place] PCP - General 01/09/23 documented as of this encounter
--- OUTSIDE RECORDS SUMMARY | 2025-01-07 09:14 | XMS_ITS | Encounter Summary ---
Author Organization [facility] Address [address] [place] [address] Care Team Providers Care Change Person Name Role Phone Marita Wetzel DO Primary Care Provider +1- [phone] Encounter Details Date Type Department Care Team (Late st Contact Info) Description 04/10/2024 Lab Requisition [facility] - Main Lab [address] [facility] [place] [phone] Marily Gordillo MD [address] [place] [phone] Chronic embolism and thrombosis of unspecified vein; [...] unspecified documented in this encounter Care Teams Change Person Relationship Specialty Start Date End Date Marita Wetzel DO [address] [place], [place] PCP - General 01/09/23 documented as of this encounter
--- OUTSIDE RECORDS SUMMARY | 2025-01-07 09:14 | XMS_ITS | Encounter Summary ---
Author Organization [facility] Address [address] [place] [address] Care Team Providers Care Reciprocating Drill Operator Name Role Phone Marita Wetzel Primary Care Provider +1- [phone] Encounter Details Date Type Department Care Team (Late st Contact Info) Description 04/02/2024 Lab Requisition [facility] - Main Lab 299 [facility] [place] [phone] Marily Gordillo MD [address] [place] [address] Chronic embolism and thrombosis of [...] - 20.0 ng/mL 04/07/2024 4:26 PM EST [facility] Comment: Additional Information: Toxic Level [...] Test performed at [facility], [address], [place] [address] Ashtyn Leigh MD, PhD - Boiler Plant Worker Blood Venous blood specimen / Unknown Venipuncture / Unknown 04/05/2024 6:56 AM EST 04/05/2024 10:25 AM EST us Marily Gordillo MD LAB BLOOD ORDERABLES Final Resul t [facility] [address] [place] [address] * (ABNORMAL) Renal function panel (04/05/2024 6:56 AM EST) Pathologist [facility] Sodium 138 133 - 145 mmol/L LAB CHEMISTRY METHOD 04/05/2024 11:52 AM EST [facility] Potassium 5.0 3.5 - 5.5 mmol/L LAB CHEMISTRY METHOD 04/05/2024 11:52 AM EST [facility] Chloride 107 96 - 110 mmol/L LAB CHEMISTRY METHOD 04/05/2024 11:52 AM EST [facility] CO2 20(L) 21 - 32 mmol/L LAB CHEMISTRY METHOD 04/05/2024 11:52 AM [facility] Anion Gap 11 3 - 11 LAB CHEMISTRY METHOD 04/05/2024 11:52 AM [facility] Glucose 104(H) 70 - 100 mg/dL LAB CHEMISTRY METHOD 04/05/2024 11:52 AM [facility] BUN 56(H) 5 - 25 mg/dL LAB CHEMISTRY METHOD 04/05/2024 11:52 AM [facility] Creatinine 4.43(H) 0.50 - 1.10 mg/dL LAB CHEMISTRY METHOD 04/05/2024 11:52 AM [facility] eGFR 11(L) >=60 mL/min/1. 73m2 LAB CHEMISTRY METHOD 04/05/2024 11:52 AM [facility] Comment:Calculation based on the Chronic Kidney Disease Epidemiology Collaboration (CKD-EPI) equation refit without adjustment for race. BUN/Creatinine Ratio 12.6 LAB CHEMISTRY METHOD 04/05/2024 11:52 AM [facility] Albumin 1.9(L) 3.2 - 5.0 g/dL LAB CHEMISTRY METHOD 04/05/2024 11:52 AM [facility] Calcium 9.0 8.5 - 10.5 mg/dL LAB CHEMISTRY METHOD 04/05/2024 11:52 AM [facility] Phosphorus 3.1 2.5 - 4.5 mg/dL LAB CHEMISTRY METHOD 04/05/2024 11:52 AM [facility] Blood Venous blood specimen / Unknown Venipuncture / Unknown 04/05/2024 6:56 AM EST 04/05/2024 10:21 AM EST us Marily Gordillo MD LAB BLOOD ORDERABLES Final Resul t [facility] [address] [place] [address], * (ABNORMAL) Complete blood count (04/05/2024 6:56 AM EST) [facility] WBC 9.2 4.8 - 10.8 K/mcL LAB HEMETOLOGY METHOD 04/05/2024 10:42 AM [facility] RBC 2.50(L) 3.80 - 4.80 M/mcL LAB HEMETOLOGY METHOD 04/05/2024 10:42 AM [facility] Hemoglobin 6.8(L) 11.5 - 16.0 g/dL LAB HEMETOLOGY METHOD 04/05/2024 10:42 AM [facility] Hematocrit 24.8(L) 35.0 - 47.0 % LAB HEMETOLOGY METHOD 04/05/2024 10:42 AM [facility] MCV 99.6(H) 79.0 - 98.0 FL LAB HEMETOLOGY METHOD 04/05/2024 10:42 AM [facility] MCH 27.3 27.0 - 32.0 pcg LAB HEMETOLOGY METHOD 04/05/2024 10:42 AM [facility] MCHC 27.4(L) 32.0 - 37.0 g/dL LAB HEMETOLOGY METHOD 04/05/2024 10:42 AM [facility] RDW 16.7(H) 11.0 - 15.0 % LAB HEMETOLOGY METHOD 04/05/2024 10:42 AM [facility] Platelets 332 130 - 400 K/mcL LAB HEMETOLOGY METHOD 04/05/2024 10:42 AM [facility] MPV 10.2 7.0 - 11.0 FL LAB HEMETOLOGY METHOD 04/05/2024 10:42 AM [facility] NRBC 0.0 <1.0 % LAB HEMETOLOGY METHOD 04/05/2024 10:42 AM [facility] NRBC Absolute 0.00 <0.10 K/mcL LAB HEMETOLOGY METHOD 04/05/2024 10:42 AM EST [facility] Blood Venous blood specimen / Unknown Venipuncture / Unknown 04/05/2024 6:56 AM EST 04/05/2024 10:26 AM EST us Marily Gordillo MD LAB BLOOD ORDERABLES Final Resul t [facility] [address] [place] [address], [place] [phone] documented in this encounter Visit Diagnoses Diagnosis Chronic embolism and thrombosis of unspecified vein Acute kidney failure, unspecified (CMS/HCC V24) Acute kidney failure, unspecified documented in this encounter Care Teams Reciprocating Drill Operator Relationship Specialty Start Date End Date Marita Wetzel DO [address] [place] [address] PCP - General 01/09/23 documented as of this encounter
--- OUTSIDE RECORDS SUMMARY | 2025-01-07 09:14 | XMS_ITS | Clinical Summary ---
Author Organization [address] Address [address] [place] [phone] Phone Care Team Providers Care Anode Builder Name Role Phone Mary JaneMarita yousif Scottie MARROQUIN Primary Care Provider +1- [phone] Immunizations Name Administration Dates Next Due Moderna [...] METHOD 05/10/2024 11:45 AM [facility] Potassium 3.8 3.5 - 5.5 [...] LAB CHEMISTRY METHOD 05/10/2024 11:45 AM EST [facility] Phosphorus 2.1(L) 2.5 - 4.5 mg/dL LAB CHEMISTRY METHOD 05/10/2024 11:45 AM EST [facility] Blood Venous blood specimen / Unknown Venipuncture / Unknown 05/10/2024 5:50 AM EST 05/10/2024 9:58 AM EST us Marily Gordillo MD LAB BLOOD ORDERABLES Final Resul t [facility] [address] [place] [address], from Last 3 Months or Most Recently Relevant to Health Maintenance Insurance MEDICARE Care Teams Anode Builder Relationship Specialty Start Date End Date Marita Wetzel DO [address] [place] [address] PCP - General 01/09/23
--- OUTSIDE RECORDS SUMMARY | 2025-01-07 09:14 | XMS_ITS | Encounter Summary ---
Author Organization [facility] Address [address] [place] [address] Care Team Providers Care Diabetes Specialist Name Role Phone Marita Wetzel Primary Care Provider +1- [phone] Encounter Details Date Type Department Care Team (Late st Contact Info) Description 04/17/2024 Lab Requisition [facility] - Main Lab 299 [facility] [place] [phone] Marily Gordillo MD [address] [place] [address] Chronic embolism and thrombosis of [...] - 20.0 ng/mL 04/22/2024 11:22 AM EST [facility] Comment: Additional Information: Toxic Level [...] developed and the performance characteristics determined by [facility]. This confirmation testing has not been cleared or approved by the FDA. The laboratory is regulated under CLIA as qualified to perform high-complexity testing. This test is used for patient testing purposes. It should not be regarded as investigational or for research. Test performed at [facility], [address], [place] [address] Ashtyn Leigh MD, PhD - Train Braker Blood Venous blood specimen / Unknown Venipuncture / Unknown 04/19/2024 6:21 AM EST 04/19/2024 8:33 AM EST us Marily Gordillo MD LAB BLOOD ORDERABLES Final Resul t [facility] [address] [place] [address] * (ABNORMAL) Renal function panel (04/19/2024 6:21 AM EST) Pathologist [facility] Sodium 144 133 - 145 mmol/L LAB CHEMISTRY METHOD 04/19/2024 9:42 AM EST [facility] Potassium 3.3(L) 3.5 - 5.5 mmol/L LAB CHEMISTRY METHOD 04/19/2024 9:42 AM EST [facility] Chloride 114(H) 96 - 110 mmol/L LAB CHEMISTRY METHOD 04/19/2024 9:42 AM EST [facility] CO2 22 21 - 32 mmol/L LAB CHEMISTRY METHOD 04/19/2024 9:42 AM [facility] Anion Gap 8 3 - 11 LAB CHEMISTRY METHOD 04/19/2024 9:42 AM [facility] Glucose 177(H) 70 - 100 mg/dL LAB CHEMISTRY METHOD 04/19/2024 9:42 AM [facility] BUN 42(H) 5 - 25 mg/dL LAB CHEMISTRY METHOD 04/19/2024 9:42 AM [facility] Creatinine 3.65(H) 0.50 - 1.10 mg/dL LAB CHEMISTRY METHOD 04/19/2024 9:42 AM [facility] eGFR 13(L) >=60 mL/min/1. 73m2 LAB CHEMISTRY METHOD 04/19/2024 9:42 AM [facility] Comment:Calculation based on the Chronic Kidney Disease Epidemiology Collaboration (CKD-EPI) equation refit without adjustment for race. BUN/Creatinine Ratio 11.5 LAB CHEMISTRY METHOD 04/19/2024 9:42 AM [facility] Albumin 2.0(L) 3.2 - 5.0 g/dL LAB CHEMISTRY METHOD 04/19/2024 9:42 AM [facility] Calcium 8.5 8.5 - 10.5 mg/dL LAB CHEMISTRY METHOD 04/19/2024 9:42 AM [facility] Phosphorus 2.6 2.5 - 4.5 mg/dL LAB CHEMISTRY METHOD 04/19/2024 9:42 AM [facility] Blood Venous blood specimen / Unknown Venipuncture / Unknown 04/19/2024 6:21 AM EST 04/19/2024 8:33 AM EST us Marily Gordillo MD LAB BLOOD ORDERABLES Final Resul t [facility] [address] [place] [address], * (ABNORMAL) Complete blood count (04/19/2024 6:21 AM EST) [facility] WBC 12.0(H) 4.8 - 10.8 K/mcL LAB HEMETOLOGY METHOD 04/19/2024 9:26 AM [facility] RBC 2.80(L) 3.80 - 4.80 M/mcL LAB HEMETOLOGY METHOD 04/19/2024 9:26 AM [facility] Hemoglobin 7.6(L) 11.5 - 16.0 g/dL LAB HEMETOLOGY METHOD 04/19/2024 9:26 AM [facility] Hematocrit 27.3(L) 35.0 - 47.0 % LAB HEMETOLOGY METHOD 04/19/2024 9:26 AM [facility] MCV 98.2(H) 79.0 - 98.0 FL LAB HEMETOLOGY METHOD 04/19/2024 9:26 AM [facility] MCH 27.3 27.0 - 32.0 pcg LAB HEMETOLOGY METHOD 04/19/2024 9:26 AM [facility] MCHC 27.8(L) 32.0 - 37.0 g/dL LAB HEMETOLOGY METHOD 04/19/2024 9:26 AM [facility] RDW 16.6(H) 11.0 - 15.0 % LAB HEMETOLOGY METHOD 04/19/2024 9:26 AM [facility] Platelets 230 130 - 400 K/mcL LAB HEMETOLOGY METHOD 04/19/2024 9:26 AM [facility] MPV 10.9 7.0 - 11.0 FL LAB HEMETOLOGY METHOD 04/19/2024 9:26 AM [facility] NRBC 0.0 <1.0 % LAB HEMETOLOGY METHOD 04/19/2024 9:26 AM [facility] NRBC Absolute 0.00 <0.10 K/mcL LAB HEMETOLOGY METHOD 04/19/2024 9:26 AM EST [facility] Blood Venous blood specimen / Unknown Venipuncture / Unknown 04/19/2024 6:21 AM EST 04/19/2024 8:33 AM EST us Marily Gordillo MD LAB BLOOD ORDERABLES Final Resul t [facility] [address] [place] [address], documented in this encounter Visit Diagnoses Diagnosis Chronic embolism and thrombosis of unspecified vein Acute kidney failure, unspecified (CMS/HCC V24) Acute kidney failure, unspecified documented in this encounter Care Teams Diabetes Specialist Relationship Specialty Start Date End Date Marita Wetzel DO [address] [place] [address] PCP - General 01/09/23 documented as of this encounter
--- OUTSIDE RECORDS SUMMARY | 2025-01-07 09:14 | XMS_ITS | Encounter Summary ---
Author Organization [facility] Address [address] [place] [address] Care Team Providers Care Radiology Tech Name Role Phone Mary JaneMarita yousif Primary Care Provider +1- [phone] Encounter Details Date Type Department Care Team (Late st Contact Info) Description 03/19/2024 Lab Requisition [facility] - Main Lab 299 [facility] [place] [address] Catalina Burr MD [address] [place] [address] Chronic embolism and thrombosis of unspecified vein; [...] - 20.0 ng/mL 03/24/2024 1:11 PM EST [facility] Comment: Additional Information: Toxic Level > [...] the performance characteristics determined by [facility]. This confirmation testing has not been cleared or approved by the FDA. The laboratory is regulated under CLIA as qualified to perform high-complexity testing. This test is used for patient testing purposes. It should not be regarded as investigational or for research. Test performed at [facility], [address], [place], [place] [id number] Ashtyn Leigh MD, PhD - Identification And Records Commander Blood Venous blood specimen / Unknown Venipuncture / Unknown 03/22/2024 6:50 AM EST 03/22/2024 8:05 AM EST us Catalina Burr MD LAB BLOOD ORDERABLES Final Resul t [facility] [address] [place] [address] * (ABNORMAL) Renal function panel (03/22/2024 6:50 AM EST) Sodium 138 133 - 145 mmol/L LAB CHEMISTRY METHOD 03/22/2024 8:[address] [facility] Potassium 4.6 3.5 - 5.5 [...] 10.4 LAB CHEMISTRY METHOD 03/22/2024 8:55 AM [facility] Albumin 2.1(L) 3.2 - 5.0 [...] Resul t [facility] [address] [place] [address], * (ABNORMAL) Complete blood count (03/22/2024 6:50 AM EST) WBC 10.4 4.8 - 10.8 K/mcL LAB HEMETOLOGY METHOD 03/22/2024 8:[address] [facility] RBC 2.80(L) 3.80 - 4.80 M/mcL LAB HEMETOLOGY METHOD 03/22/2024 8:32 AM [facility] Hemoglobin 7.9(L) 11.5 - 16.0 g/dL LAB HEMETOLOGY METHOD 03/22/2024 8:32 AM [facility] Hematocrit 27.8(L) 35.0 - 47.0 % LAB HEMETOLOGY METHOD 03/22/2024 8:32 AM [facility] MCV 98.6(H) 79.0 - 98.0 FL LAB HEMETOLOGY METHOD 03/22/2024 8:32 AM [facility] MCH 28.0 27.0 - 32.0 pcg LAB HEMETOLOGY METHOD 03/22/2024 8:32 AM [facility] MCHC 28.4(L) 32.0 - 37.0 g/dL LAB HEMETOLOGY METHOD 03/22/2024 8:32 AM [facility] RDW 17.8(H) 11.0 - 15.0 % LAB HEMETOLOGY METHOD 03/22/2024 8:32 AM [facility] Platelets 218 130 - 400 K/mcL LAB HEMETOLOGY METHOD 03/22/2024 8:32 AM [facility] MPV 10.7 7.0 - 11.0 FL LAB HEMETOLOGY METHOD 03/22/2024 8:[address] [facility] NRBC 0.0 <1.0 % LAB HEMETOLOGY METHOD 03/22/2024 8:[address] [facility] NRBC Absolute 0.00 <0.10 K/mcL LAB HEMETOLOGY METHOD 03/22/2024 8:[address] [facility] Blood Venous blood specimen / Unknown Venipuncture / Unknown 03/22/2024 6:50 AM EST 03/22/2024 8:05 AM EST us Catalina Burr MD LAB BLOOD ORDERABLES Final Resul t [facility] [address] [place] [address], [place] [phone] documented in this encounter Visit Diagnoses Diagnosis Chronic embolism and thrombosis of unspecified vein Acute kidney failure, unspecified (CMS/HCC V24) Acute kidney failure, unspecified Type 2 diabetes mellitus without complications (CMS/HCC V24, CMS/HCC V28) documented in this encounter Care Teams Radiology Tech Relationship Specialty Start Date End Date Marita Wetzel DO [address] [place] [address] PCP - General 01/09/23 documented as of this encounter
--- OUTSIDE RECORDS SUMMARY | 2025-01-07 09:14 | XMS_ITS | Encounter Summary ---
Author Organization [facility] Address [address] [place] [address] Care Team Providers Care Stock Preparation Operator Name Role Phone Marita Wetzel Primary Care Provider +1- [phone] Encounter Details Date Type Department Care Team (Late st Contact Info) Description 03/01/2024 Lab Requisition [facility] - Main Lab 299 [facility] [place] [address] Catalina Burr MD [address] [place], [place] [id number] End stage renal disease (CMS/HCC V24, CMS/HCC [...] (ABNORMAL) Ferritin (03/01/2024 6:56 AM EST) Pathologist [facility] Ferritin 2,736(H) 8 - 252 ng/mL LAB CHEMISTRY METHOD 03/01/2024 11:27 AM EST [facility] Blood Venous blood specimen / Unknown Venipuncture / Unknown 03/01/2024 6:56 AM EST 03/01/2024 9:07 AM EST Catalina Burr MD LAB BLOOD ORDERABLES Final Resul t Performing Organization Address City/[facility]/ZIP Co de Phone Number [facility] [address] [place] [address], [place] [phone] * (ABNORMAL) Iron (03/01/2024 6:56 AM EST) [facility] Iron 29(L) 40 - 150 mcg/dL LAB CHEMISTRY METHOD 03/01/2024 11:22 AM EST [facility] Blood Venous blood specimen / Unknown Venipuncture / Unknown 03/01/2024 6:56 AM EST 03/01/2024 9:07 AM EST us Catalina Burr MD LAB BLOOD ORDERABLES Final Resul t [facility] [address] [place] [address], [place] [phone] * Tacrolimus level (03/01/2024 6:56 AM EST) [facility] Tacrolimus Level 5.2 5.0 - 20.0 ng/mL 03/04/2024 12:28 PM EST [facility] Comment: Additional Information: Toxic Level > [...] at [facility], [address] [place] [address] Ashtyn Leigh MD, PhD - Quality Control Tech Blood Venous blood specimen / Unknown Venipuncture / Unknown 03/01/2024 6:56 AM EST 03/01/2024 9:07 AM EST us Catalina Burr MD LAB BLOOD ORDERABLES Final Resul t [facility] [address] [place] [address] * (ABNORMAL) Renal function panel (03/01/2024 6:56 AM EST) Sodium 140 133 - 145 mmol/L LAB CHEMISTRY METHOD 03/01/2024 11:04 AM [facility] Potassium 3.4(L) 3.5 - 5.5 mmol/L LAB CHEMISTRY METHOD 03/01/2024 11:04 AM [facility] Chloride 107 96 - 110 mmol/L LAB CHEMISTRY METHOD 03/01/2024 11:04 AM [facility] CO2 24 21 - 32 mmol/L LAB CHEMISTRY METHOD 03/01/2024 11:04 AM [facility] Anion Gap 9 3 - 11 LAB CHEMISTRY METHOD 03/01/2024 11:04 AM [facility] Glucose 107(H) 70 - 100 mg/dL LAB CHEMISTRY METHOD 03/01/2024 11:04 AM [facility] BUN 26(H) 5 - 25 mg/dL LAB CHEMISTRY METHOD 03/01/2024 11:04 AM [facility] Creatinine 2.88(H) 0.50 - 1.10 mg/dL LAB CHEMISTRY METHOD 03/01/2024 11:04 AM [facility] eGFR 18(L) >=60 mL/min/1. 73m2 LAB CHEMISTRY METHOD 03/01/2024 11:04 AM [facility] Comment:Calculation based on the Chronic Kidney Disease Epidemiology Collaboration (CKD-EPI) equation refit without adjustment for race. BUN/Creatinine Ratio 9.0 LAB CHEMISTRY METHOD 03/01/2024 11:04 AM [facility] Albumin 2.3(L) 3.2 - 5.0 g/dL LAB CHEMISTRY METHOD 03/01/2024 11:04 AM [facility] Calcium 8.9 8.5 - 10.5 mg/dL LAB CHEMISTRY METHOD 03/01/2024 11:04 AM [facility] Phosphorus 1.9(L) 2.5 - 4.5 mg/dL LAB CHEMISTRY METHOD 03/01/2024 11:04 AM [facility] Blood Venous blood specimen / Unknown Venipuncture / Unknown 03/01/2024 6:56 AM EST 03/01/2024 9:07 AM EST us Catalina Burr MD LAB BLOOD ORDERABLES Final Resul t [facility] [address] [place] [address], * (ABNORMAL) Complete blood count (03/01/2024 6:56 AM EST) [facility] WBC 10.2 4.8 - 10.8 K/mcL LAB HEMETOLOGY METHOD 03/01/2024 10:46 AM [facility] RBC 2.70(L) 3.80 - 4.80 M/mcL LAB HEMETOLOGY METHOD 03/01/2024 10:46 AM [facility] Hemoglobin 7.5(L) 11.5 - 16.0 g/dL LAB HEMETOLOGY METHOD 03/01/2024 10:46 AM [facility] Hematocrit 26.1(L) 35.0 - 47.0 % LAB HEMETOLOGY METHOD 03/01/2024 10:46 AM [facility] MCV 97.8 79.0 - 98.0 FL LAB HEMETOLOGY METHOD 03/01/2024 10:46 AM [facility] MCH 28.1 27.0 - 32.0 pcg LAB HEMETOLOGY METHOD 03/01/2024 10:46 AM [facility] MCHC 28.7(L) 32.0 - 37.0 g/dL LAB HEMETOLOGY METHOD 03/01/2024 10:46 AM [facility] RDW 16.7(H) 11.0 - 15.0 % LAB HEMETOLOGY METHOD 03/01/2024 10:46 AM [facility] Platelets 235 130 - 400 K/mcL LAB HEMETOLOGY METHOD 03/01/2024 10:46 AM [facility] MPV 10.8 7.0 - 11.0 FL LAB HEMETOLOGY METHOD 03/01/2024 10:46 AM [facility] NRBC 0.0 <1.0 % LAB HEMETOLOGY METHOD 03/01/2024 10:46 AM [facility] NRBC Absolute 0.00 <0.10 K/mcL LAB HEMETOLOGY METHOD 03/01/2024 10:46 AM EST [facility] Blood Venous blood specimen / Unknown Venipuncture / Unknown 03/01/2024 6:56 AM EST 03/01/2024 9:07 AM EST us Catalina Burr MD LAB BLOOD ORDERABLES Final Resul t [facility] [address] [place] [address], documented in this encounter Visit Diagnoses Diagnosis End stage renal disease ([facility] V24, [facility] V28) End stage renal disease Type 2 diabetes mellitus without complications ([facility] V24, [facility] V28) documented in this encounter Care Teams Stock Preparation Operator Relationship Specialty Start Date End Date Marita Wetzel DO [address] [place] [address] PCP - General 01/09/23 documented as of this encounter
--- OUTSIDE RECORDS SUMMARY | 2025-01-07 09:14 | XMS_ITS | Encounter Summary ---
Author Organization [facility] Address [address] [place] [address] Care Team Providers Care Deck Engineer Name Role Phone Mary JaneMarita yousif Primary Care Provider +1- [phone] Encounter Details Date Type Department Care Team (Late st Contact Info) Description 03/05/2024 Lab Requisition [facility] - Main Lab 299 [facility] [place] [address] Catalina Burr MD [address] [place] [address] Chronic embolism and thrombosis of unspecified vein; [...] - 20.0 ng/mL 03/10/2024 1:48 PM EST [facility] Comment: Additional Information: Toxic Level > [...] developed and the performance characteristics determined by [facility]. This confirmation testing has not been cleared or approved by the FDA. The laboratory is regulated under CLIA as qualified to perform high-complexity testing. This test is used for patient testing purposes. It should not be regarded as investigational or for research. Test performed at [facility], [address], [place], [place] [id number] Ashtyn Leigh MD, PhD - Pull Over Blood Venous blood specimen / Unknown Venipuncture / Unknown 03/08/2024 6:29 AM EST 03/08/2024 7:46 AM EST us Catalina Burr MD LAB BLOOD ORDERABLES Final Resul t [facility] [address] [place] [address] * (ABNORMAL) Renal function panel (03/08/2024 6:29 AM EST) Sodium 139 133 - 145 mmol/L LAB CHEMISTRY METHOD 03/08/2024 8:58 AM EST [facility] Potassium 4.5 3.5 - 5.5 mmol/L LAB CHEMISTRY METHOD 03/08/2024 8:58 AM [facility] Chloride 108 96 - 110 mmol/L LAB CHEMISTRY METHOD 03/08/2024 8:58 AM [facility] CO2 20(L) 21 - 32 mmol/L LAB CHEMISTRY METHOD 03/08/2024 8:58 AM [facility] Anion Gap 11 3 - 11 LAB CHEMISTRY METHOD 03/08/2024 8:58 AM [facility] Glucose 93 70 - 100 mg/dL LAB CHEMISTRY METHOD 03/08/2024 8:58 AM [facility] BUN 35(H) 5 - 25 mg/dL LAB CHEMISTRY METHOD 03/08/2024 8:58 AM [facility] Creatinine 3.99(H) 0.50 - 1.10 mg/dL LAB CHEMISTRY METHOD 03/08/2024 8:58 AM [facility] eGFR 12(L) >=60 mL/min/1. 73m2 LAB CHEMISTRY METHOD 03/08/2024 8:58 AM [facility] Comment:Calculation based on the Chronic Kidney Disease Epidemiology Collaboration (CKD-EPI) equation refit without adjustment for race. BUN/Creatinine Ratio 8.8 LAB CHEMISTRY METHOD 03/08/2024 8:58 AM [facility] Albumin 2.3(L) 3.2 - 5.0 g/dL LAB CHEMISTRY METHOD 03/08/2024 8:58 AM [facility] Calcium 9.0 8.5 - 10.5 mg/dL LAB CHEMISTRY METHOD 03/08/2024 8:58 AM [facility] Phosphorus 3.2 2.5 - 4.5 mg/dL LAB CHEMISTRY METHOD 03/08/2024 8:58 AM [facility] Blood Venous blood specimen / Unknown Venipuncture / Unknown 03/08/2024 6:29 AM EST 03/08/2024 7:46 AM EST Catalina Burr MD LAB BLOOD ORDERABLES Final Resul t [facility] [address] [place] [address], * (ABNORMAL) Complete blood count (03/08/2024 6:29 AM EST) WBC 9.8 4.8 - 10.8 K/mcL LAB HEMETOLOGY METHOD 03/08/2024 8:10 AM EST [facility] RBC 2.90(L) 3.80 - 4.80 M/mcL LAB HEMETOLOGY METHOD 03/08/2024 8:10 AM EST [facility] Hemoglobin 7.9(L) 11.5 - 16.0 g/dL LAB HEMETOLOGY METHOD 03/08/2024 8:10 AM EST [facility] Hematocrit 28.5(L) 35.0 - 47.0 % LAB HEMETOLOGY METHOD 03/08/2024 8:10 AM EST [facility] MCV 99.3(H) 79.0 - 98.0 FL LAB HEMETOLOGY METHOD 03/08/2024 8:10 AM EST [facility] MCH 27.5 27.0 - 32.0 pcg LAB HEMETOLOGY METHOD 03/08/2024 8:10 AM [facility] MCHC 27.7(L) 32.0 - 37.0 g/dL LAB HEMETOLOGY METHOD 03/08/2024 8:10 AM [facility] RDW 17.2(H) 11.0 - 15.0 % LAB HEMETOLOGY METHOD 03/08/2024 8:10 AM [facility] Platelets 299 130 - 400 K/mcL LAB HEMETOLOGY METHOD 03/08/2024 8:10 AM [facility] MPV 11.5(H) 7.0 - 11.0 FL LAB HEMETOLOGY METHOD 03/08/2024 8:10 AM EST [facility] NRBC 0.0 <1.0 % LAB HEMETOLOGY METHOD 03/08/2024 8:10 AM EST [facility] NRBC Absolute 0.00 <0.10 K/mcL LAB HEMETOLOGY METHOD 03/08/2024 8:10 AM EST [facility] Blood Venous blood specimen / Unknown Venipuncture / Unknown 03/08/2024 6:29 AM EST 03/08/2024 7:46 AM EST us Catalina Burr MD LAB BLOOD ORDERABLES Final Resul t [facility] [address] [place] [address], [place] [phone] documented in this encounter Visit Diagnoses Diagnosis Chronic embolism and thrombosis of unspecified vein Acute kidney failure, unspecified (CMS/HCC V24) Acute kidney failure, unspecified Type 2 diabetes mellitus without complications (CMS/HCC V24, CMS/HCC V28) documented in this encounter Care Teams Deck Engineer Relationship Specialty Start Date End Date Marita Wetzel DO [address] [place] [address] PCP - General 01/09/23 documented as of this encounter
--- OUTSIDE RECORDS SUMMARY | 2025-01-07 09:14 | XMS_ITS | Encounter Summary ---
Author Organization [facility] Address [address] [place] [address] Care Team Providers Care Document Photographer Name Role Phone Marita Wetzel Primary Care Provider +1- [phone] Encounter Details Date Type Department Care Team (Late st Contact Info) Description 04/23/2024 Lab Requisition [facility] - Main Lab 299 [place] [phone] Marily Gordillo MD [address] [place] [address] Chronic embolism and thrombosis of [...] LAB CHEMISTRY METHOD 04/26/2024 9:[address] [facility] Potassium 3.4(L) 3.5 - 5.5 mmol/L LAB CHEMISTRY METHOD 04/26/2024 9:[address] [facility] Chloride 109 96 - 110 mmol/L LAB CHEMISTRY METHOD 04/26/2024 9:11 AM [facility] CO2 27 21 - 32 mmol/L LAB CHEMISTRY METHOD 04/26/2024 9:11 AM [facility] Anion Gap 7 3 - 11 LAB CHEMISTRY METHOD 04/26/2024 9:11 AM [facility] Glucose 80 70 - 100 mg/dL LAB CHEMISTRY METHOD 04/26/2024 9:11 AM [facility] BUN 29(H) 5 - 25 mg/dL LAB CHEMISTRY METHOD 04/26/2024 9:11 AM [facility] Creatinine 3.36(H) 0.50 - 1.10 mg/dL LAB CHEMISTRY METHOD 04/26/2024 9:11 AM [facility] eGFR 15(L) >=60 mL/min/1. 73m2 LAB CHEMISTRY METHOD 04/26/2024 9:11 AM [facility] Comment:Calculation based on the Chronic Kidney Disease Epidemiology Collaboration (CKD-EPI) equation refit without adjustment for race. BUN/Creatinine Ratio 8.6 LAB CHEMISTRY METHOD 04/26/2024 9:11 AM [facility] Albumin 2.1(L) 3.2 - 5.0 g/dL LAB CHEMISTRY METHOD 04/26/2024 9:11 AM [facility] Calcium 8.7 8.5 - 10.5 mg/dL LAB CHEMISTRY METHOD 04/26/2024 9:11 AM [facility] Phosphorus 2.5 2.5 - 4.5 mg/dL LAB CHEMISTRY METHOD 04/26/2024 9:11 AM [facility] Blood Venous blood specimen / Unknown Venipuncture / Unknown 04/26/2024 6:18 AM EST 04/26/2024 8:28 AM EST Marily Gordillo MD LAB BLOOD ORDERABLES Final Resul t [facility] [address] [place] [address], documented in this encounter Visit Diagnoses Diagnosis Chronic embolism and thrombosis of unspecified vein Acute kidney failure, unspecified (CMS/HCC V24) Acute kidney failure, unspecified documented in this encounter Care Teams Document Photographer Relationship Specialty Start Date End Date Marita Wetzel DO [address] [place] [address] PCP - General 01/09/23 documented as of this encounter
--- OUTSIDE RECORDS SUMMARY | 2025-01-07 09:14 | XMS_ITS | Encounter Summary ---
Author Organization [facility] Address [address] [place] [address] Care Team Providers Care Office Helper Name Role Phone Marita Wetzel DO Primary Care Provider +1- [phone] Encounter Details Date Type Department Care Team (Late st Contact Info) Description 2024 Lab Requisition [facility] - Main Lab 299 [facility] [employer] [place] [phone] Marily Gordillo MD [address] [place] [address] Chronic kidney disease, unspecified; Anemia, [...] unspecified documented in this encounter Care Teams Office Helper Relationship Specialty Start Date End Date Marita Wetzel DO [address] [place] [address] PCP - General 01/09/23 documented as of this encounter
--- OUTSIDE RECORDS SUMMARY | 2025-01-07 09:14 | XMS_ITS | Encounter Summary ---
Author Organization [facility] Address [address] [place] [address] Phone Care Team Providers Care Crop Farm Workers Name Role Phone Marita Wetzel DO Primary Care Provider Unava ilable Encounter Details Date Type Department Care Team (Late st Contact Info) Description 06/12/2023 Documentation Only [facility] [address] [place] [address] [place], [place], [place] [address] [place] [phone] Social History Tobacco Use Types Packs/Day Years [...] Of [facility] [address] [place] [address] 01/26/2025 9:30 AM EDT Clinical Support [facility] [address] [place] [address] 03/08/2025 12:30 PM EST Scheduled Only [facility] [address] [place] [address] documented as of this encounter Visit Diagnoses Not on filedocumented in this encounter Care Teams Crop Farm Workers Relationship Specialty Start Date End Date Marita Wetzel DO [address] [place] [address] PCP - General Family Medicine 11/14/22 documented as of this encounter
--- OUTSIDE RECORDS SUMMARY | 2025-01-07 09:14 | XMS_ITS | Encounter Summary ---
Author Organization [facility] Address [address] [place] [address] Care Team Providers Care Property Claims Manager Name Role Phone Mary JaneMarita yousif Primary Care Provider +1- [phone] Encounter Details Date Type Department Care Team (Late st Contact Info) Description 03/12/2024 Lab Requisition [facility] - Main Lab 299 [facility] [place] [address] Catalina Burr MD [address] [place], [place] [id number] Chronic embolism and thrombosis of unspecified vein; [...] - 20.0 ng/mL 03/17/2024 1:34 PM EST [facility] Comment: Additional Information: Toxic [...] investigational or for research. Test performed at [facility], [address], [place] [address] Ashtyn Leigh MD, PhD - Informatics Physician Liaison Blood Venous blood specimen / Unknown Venipuncture / Unknown 03/15/2024 8:20 AM EST 03/15/2024 10:20 AM EST Catalina Burr MD LAB BLOOD ORDERABLES Final Resul t [facility] [address] [place] [address] * (ABNORMAL) Renal function panel (03/15/2024 8:20 AM EST) Pathologist [facility] Sodium 139 133 - 145 mmol/L LAB CHEMISTRY METHOD 03/15/2024 11:31 AM EST [facility] Potassium 5.6(H) 3.5 - 5.5 mmol/L LAB CHEMISTRY METHOD 03/15/2024 11:31 AM EST [facility] Chloride 108 96 - 110 mmol/L LAB CHEMISTRY METHOD 03/15/2024 11:31 AM EST [facility] CO2 19(L) 21 - [...] g/dL LAB CHEMISTRY METHOD 03/15/2024 11:[address] [facility] Calcium 9.5 8.5 - 10.5 mg/dL LAB CHEMISTRY METHOD 03/15/2024 11:[address] [facility] Phosphorus 4.0 2.5 - 4.5 mg/dL LAB CHEMISTRY METHOD 03/15/2024 11:[address] [facility] Blood Venous blood specimen / Unknown Venipuncture / Unknown 03/15/2024 8:20 AM EST 03/15/2024 10:16 AM EST us Catalina Burr MD LAB BLOOD ORDERABLES Final Resul t [facility] [address] [place] [address], [place] [phone] documented in this encounter Visit Diagnoses Diagnosis Chronic embolism and thrombosis of unspecified vein Acute kidney failure, unspecified (CMS/[facility] V24) Acute kidney failure, unspecified Type 2 diabetes mellitus without complications ([facility] V24, CMS/[facility] V28) documented in this encounter Care Teams Property Claims Manager Relationship Specialty Start Date End Date Marita Wetzel DO [address] [place] [address] PCP - General 01/09/23 documented as of this encounter
--- OUTSIDE RECORDS SUMMARY | 2025-01-07 09:14 | XMS_ITS | Encounter Summary ---
Author Organization [facility] Address [address] [place] [address] Care Team Providers Care Knot Picker Cloth Name Role Phone Marita Wetzel Primary Care Provider +1- [phone] Encounter Details Date Type Department Care Team (Late st Contact Info) Description 04/17/2024 Lab Requisition [facility] - Main Lab 299 [facility] [place] [address] Catalina Burr MD [address] [place] [address] End stage renal disease (CMS/HCC V24, CMS/HCC [...] or for research. Test performed at [facility], [address] , [place] [address] Ashtyn Leigh MD, PhD - Customs Patrol Officer Blood Venous blood specimen / Unknown Venipuncture / Unknown 04/17/2024 5:33 AM EST 04/17/2024 9:33 AM EST us Catalina Burr MD LAB BLOOD ORDERABLES Final Resul t [facility] [address] [place] [address] * (ABNORMAL) Reticulocyte count (04/17/2024 5:33 AM EST) Retic Ct Abs 0.050 0.030 - 0.090 M/mcL LAB HEMETOLOGY METHOD 04/17/2024 10:42 AM EST [facility] Retic Ct Pct 1.8(H) 0.7 - 1.7 % LAB HEMETOLOGY METHOD 04/17/2024 10:42 AM EST [facility] Immature Retic Fract 24.7(H) 2.3 - 15.9 % LAB HEMETOLOGY METHOD 04/17/2024 10:42 AM [facility] Reticulocyte Hemoglobin 28.3(L) >29.0 pcg LAB HEMETOLOGY METHOD 04/17/2024 10:42 AM [facility] Blood Venous blood specimen / Unknown Venipuncture / Unknown 04/17/2024 5:33 AM EST 04/17/2024 9:33 AM EST us Catalina Burr MD LAB BLOOD ORDERABLES Final Resul t [facility] [address] [place] [address], [place] [phone] * (ABNORMAL) Comprehensive metabolic panel (04/17/2024 5:33 AM EST) Sodium 146(H) 133 - 145 mmol/L LAB CHEMISTRY METHOD 04/17/2024 11:02 AM [facility] Potassium 3.4(L) 3.5 - 5.5 mmol/L LAB CHEMISTRY METHOD 04/17/2024 11:02 AM [facility] Chloride 116(H) 96 - 110 mmol/L LAB CHEMISTRY METHOD 04/17/2024 11:02 AM [facility] CO2 21 21 - 32 mmol/L LAB CHEMISTRY METHOD 04/17/2024 11:02 AM [facility] Anion Gap 9 3 - 11 LAB CHEMISTRY METHOD 04/17/2024 11:02 AM [facility] Glucose 61(L) 70 - 100 mg/dL LAB CHEMISTRY METHOD 04/17/2024 11:02 AM [facility] BUN 48(H) 5 - 25 mg/dL LAB CHEMISTRY METHOD 04/17/2024 11:02 AM [facility] Creatinine 3.71(H) 0.50 - 1.10 mg/dL LAB CHEMISTRY METHOD 04/17/2024 11:02 AM [facility] eGFR 13(L) >=60 mL/min/1. 73m2 LAB CHEMISTRY METHOD 04/17/2024 11:02 AM [facility] Comment:Calculation based on the Chronic Kidney Disease Epidemiology Collaboration (CKD-EPI) equation refit without adjustment for race. BUN/Creatinine Ratio 12.9 LAB CHEMISTRY METHOD 04/17/2024 11:02 AM [facility] Calcium 8.7 8.5 - 10.5 mg/dL LAB CHEMISTRY METHOD 04/17/2024 11:02 AM [facility] AST (SGOT) 8(L) 10 - 42 unit/L LAB CHEMISTRY METHOD 04/17/2024 11:02 AM [facility] ALT (SGPT) 9(L) 10 - 60 unit/L LAB CHEMISTRY METHOD 04/17/2024 11:02 AM [facility] Alkaline Phosphatase 61 42 - 121 unit/L LAB CHEMISTRY METHOD 04/17/2024 11:02 AM [facility] Total Protein 5.6(L) 6.0 - 8.0 g/dL LAB CHEMISTRY METHOD 04/17/2024 11:02 AM [facility] Albumin 2.0(L) 3.2 - 5.0 g/dL LAB CHEMISTRY METHOD 04/17/2024 11:02 AM [facility] Total Bilirubin 0.5 0.0 - 1.4 mg/dL LAB CHEMISTRY METHOD 04/17/2024 11:02 AM [facility] Blood Venous blood specimen / Unknown Venipuncture / Unknown 04/17/2024 5:33 AM EST 04/17/2024 9:33 AM EST us Catalina Burr MD LAB BLOOD ORDERABLES Final Resul t [facility] [address] [place] [address], * (ABNORMAL) Complete blood count (04/17/2024 5:33 AM EST) [facility] WBC 9.3 4.8 - 10.8 K/mcL LAB HEMETOLOGY METHOD 04/17/2024 10:42 AM [facility] RBC 3.10(L) 3.80 - 4.80 M/mcL LAB HEMETOLOGY METHOD 04/17/2024 10:42 AM [facility] Hemoglobin 8.3(L) 11.5 - 16.0 g/dL LAB HEMETOLOGY METHOD 04/17/2024 10:42 AM [facility] Hematocrit 30.3(L) 35.0 - 47.0 % LAB HEMETOLOGY METHOD 04/17/2024 10:42 AM [facility] MCV 98.1(H) 79.0 - 98.0 FL LAB HEMETOLOGY METHOD 04/17/2024 10:42 AM [facility] MCH 26.9(L) 27.0 - 32.0 pcg LAB HEMETOLOGY METHOD 04/17/2024 10:42 AM [facility] MCHC 27.4(L) 32.0 - 37.0 g/dL LAB HEMETOLOGY METHOD 04/17/2024 10:42 AM [facility] RDW 16.9(H) 11.0 - 15.0 % LAB HEMETOLOGY METHOD 04/17/2024 10:42 AM [facility] Platelets 206 130 - 400 K/mcL LAB HEMETOLOGY METHOD 04/17/2024 10:42 AM [facility] MPV 10.1 7.0 - 11.0 FL LAB HEMETOLOGY METHOD 04/17/2024 10:42 AM [facility] NRBC 0.0 <1.0 % LAB HEMETOLOGY METHOD 04/17/2024 10:42 AM EST [facility] NRBC Absolute 0.00 <0.10 K/mcL LAB HEMETOLOGY METHOD 04/17/2024 10:42 AM EST [facility] Blood Venous blood specimen / Unknown Venipuncture / Unknown 04/17/2024 5:33 AM EST 04/17/2024 9:33 AM EST us Catalina Burr MD LAB BLOOD ORDERABLES Final Resul t [facility] [address] [place] [address], documented in this encounter Visit Diagnoses Diagnosis End stage renal disease (CMS/HCC V24, CMS/HCC V28) End stage renal disease Anemia, unspecified documented in this encounter Care Teams Knot Picker Cloth Relationship Specialty Start Date End Date Marita Wetzel DO [address] [place] [address] PCP - General 01/09/23 documented as of this encounter
--- OUTSIDE RECORDS SUMMARY | 2025-01-07 09:14 | XMS_ITS | Encounter Summary ---
Author Organization [facility] Address [address] [place] [address] Care Team Providers Care Natural Resource Officer Name Role Phone Marita Wetzel DO Primary Care Provider +1- [phone] Encounter Details Date Type Department Care Team (Late st Contact Info) Description 04/28/2024 Lab Requisition [facility] - Main Lab 299 [facility] [employer] [place] [phone] Marily Gordillo MD [address] [place] [address] Chronic kidney disease, unspecified; Anemia, [...] unspecified documented in this encounter Care Teams Natural Resource Officer Relationship Specialty Start Date End Date Marita Wetzel DO [address] [place] [address] PCP - General 01/09/23 documented as of this encounter
--- OUTSIDE RECORDS SUMMARY | 2025-01-07 09:14 | XMS_ITS | Encounter Summary ---
Author Organization [facility] Address [address] [place] [address] Care Team Providers Care Stair Builder Name Role Phone Marita Wetzel Primary Care Provider +1- [phone] Encounter Details Date Type Department Care Team (Late st Contact Info) Description 04/20/2024 Lab Requisition [facility] - Main Lab [address] [place] [phone] Marily Gordillo MD [address] [place] [address] Chronic kidney disease, unspecified; Anemia, [...] t [facility] [address] [place] [address], * (ABNORMAL) Complete blood count (04/22/2024 7:09 AM EST) WBC 8.2 4.8 - 10.8 K/mcL LAB HEMETOLOGY METHOD 04/22/2024 10:44 AM [facility] RBC 2.80(L) 3.80 - 4.80 M/[facility] LAB HEMETOLOGY METHOD 04/22/2024 10:44 AM [facility] [...] pcg LAB HEMETOLOGY METHOD 04/22/2024 10:44 AM [facility] MCHC 28.2(L) 32.0 - 37.0 g/dL LAB HEMETOLOGY METHOD 04/22/2024 10:44 AM EST [facility] RDW 16.5(H) 11.0 [...] t [facility] [address] [place] [address], documented in this encounter Visit Diagnoses Diagnosis Chronic kidney disease, unspecified Anemia, unspecified documented in this encounter Care Teams Stair Builder Relationship Specialty Start Date End Date Marita Wetzel DO [address] [place] [address] PCP - General 01/09/23 documented as of this encounter
--- OUTSIDE RECORDS SUMMARY | 2025-01-07 09:14 | XMS_ITS | Encounter Summary ---
Author Organization [facility] Address [address] [place] [address] Care Team Providers Care Echo Technician Name Role Phone Marita Wetzel DO Primary Care Provider +1- [phone] Encounter Details Date Type Department Care Team (Late st Contact Info) Description 03/15/2024 Lab Requisition [facility] - Main Lab 299 [facility] [place] [phone] Catalina Burr MD [address] [place] [address] Acute kidney failure, unspecified (CMS/HCC V24); Chronic [...] vein documented in this encounter Care Teams Echo Technician Relationship Specialty Start Date End Date Marita Wetzel DO [address] [place], [place] PCP - General 01/09/23 documented as of this encounter
--- OUTSIDE RECORDS SUMMARY | 2025-01-07 09:14 | XMS_ITS | Encounter Summary ---
Author Organization [facility] Address [address] [place] [address] Care Team Providers Care Paralegals Name Role Phone Marita Wetzel DO Primary Care Provider +1- [phone] Encounter Details Date Type Department Care Team (Late st Contact Info) Description 04/28/[address] [facility] - Main Lab 299 [facility] [place] [phone] Marily Gordillo MD [address] [place] [address] Chronic kidney disease, unspecified; Anemia, [...] unspecified documented in this encounter Care Teams Paralegals Relationship Specialty Start Date End Date Marita Wetzel DO [address] [place] [address] PCP - General 01/09/23 documented as of this encounter
--- OUTSIDE RECORDS SUMMARY | 2025-01-07 09:14 | XMS_ITS | Encounter Summary ---
Author Organization [facility], Address [address] [place] [address] Phone Care Team Providers Care Civil Process Server Name Role Phone Marita Wetzel DO Primary Care Provider Unava ilable Encounter Details Date Type Department Care Team (Late st Contact Info) Description 07/29/2023 Documentation Only [facility] [address] [place] [phone] Pauline Aguayo [address] [place] [phone] Social History Tobacco Use Types Packs/Day Years [...] Of [facility] [address] [facility] [place] [address] 01/26/2025 9:30 AM EDT Clinical Support [facility] [address] [facility] [address] [place] [address] 03/08/2025 12:30 PM EST Scheduled Only [facility] [address] [place] [address] documented as of this encounter Visit Diagnoses Not on filedocumented in this encounter Care Teams Civil Process Server Relationship Specialty Start Date End Date Marita Wetzel DO [address] [place] [address] PCP - General Family Medicine 11/14/22 documented as of this encounter
--- OUTSIDE RECORDS SUMMARY | 2025-01-07 09:14 | XMS_ITS | Encounter Summary ---
Author Organization [facility] Address [address] [place] [address] Care Team Providers Care Votator Machine Operator Name Role Phone Marita Wetzel Primary Care Provider +1- [phone] Encounter Details Date Type Department Care Team (Late st Contact Info) Description 04/30/2024 Lab Requisition [facility] - Main Lab [address] [place] [phone] Marily Gordillo MD [address] [place] [address] Chronic embolism and thrombosis of [...] mmol/L LAB CHEMISTRY METHOD 05/03/2024 10:39 AM [facility] Chloride 99 96 - 110 mmol/L LAB CHEMISTRY METHOD 05/03/2024 10:39 AM [facility] CO2 28 21 - 32 mmol/L LAB CHEMISTRY METHOD 05/03/2024 10:39 AM [facility] Anion Gap 7 3 - 11 LAB CHEMISTRY METHOD 05/03/2024 10:39 AM [facility] Glucose 133(H) 70 - 100 mg/dL LAB CHEMISTRY METHOD 05/03/2024 10:39 AM [facility] BUN 40(H) 5 - 25 mg/dL LAB CHEMISTRY METHOD 05/03/2024 10:39 AM [facility] Creatinine 3.27(H) 0.50 - 1.10 mg/dL LAB CHEMISTRY METHOD 05/03/2024 10:39 AM [facility] eGFR 15(L) >=60 mL/min/1. 73m2 LAB CHEMISTRY METHOD 05/03/2024 10:39 AM [facility] Comment:Calculation based on the Chronic Kidney Disease Epidemiology Collaboration (CKD-EPI) equation refit without adjustment for race. BUN/Creatinine Ratio 12.2 LAB CHEMISTRY METHOD 05/03/2024 10:39 AM [facility] Albumin 2.1(L) 3.2 - 5.0 g/dL LAB CHEMISTRY METHOD 05/03/2024 10:39 AM [facility] Calcium 8.6 8.5 - 10.5 mg/dL LAB CHEMISTRY METHOD 05/03/2024 10:39 AM [facility] Phosphorus 1.8(L) 2.5 - 4.5 mg/dL LAB CHEMISTRY METHOD 05/03/2024 10:39 AM [facility] Blood Venous blood specimen / Unknown Venipuncture / Unknown 05/03/2024 6:09 AM EST 05/03/2024 9:28 AM EST Marily Gordillo MD LAB BLOOD ORDERABLES Final Resul t Performing Organization Address City/[facility]/ZIP Co de Phone Number [facility] [address] [place] [address], * Tacrolimus level (05/03/2024 6:09 AM EST) [...] developed and the performance characteristics determined by [facility]. This confirmation testing has not been cleared or approved by the FDA. The laboratory is regulated under CLIA as qualified to perform high-complexity testing. This test is used for patient testing purposes. It should not be regarded as investigational or for research. Test performed at [facility], [address] , [place] [address] Ashtyn Leigh MD, PhD - Director Of Occupational Health Blood Venous blood specimen / Unknown Venipuncture / Unknown 05/03/2024 6:09 AM EST 05/03/2024 9:28 AM EST Marily Gordillo MD LAB BLOOD ORDERABLES Final Resul t [facility] [address] [place] [address] documented in this encounter Visit Diagnoses Diagnosis Chronic embolism and thrombosis of unspecified vein Acute kidney failure, unspecified (CMS/HCC V24) Acute kidney failure, unspecified documented in this encounter Care Teams Votator Machine Operator Relationship Specialty Start Date End Date Marita Wetzel DO [address] [place] [address] PCP - General 01/09/23 documented as of this encounter
--- OUTSIDE RECORDS SUMMARY | 2025-01-07 09:14 | XMS_ITS | Encounter Summary ---
Author Organization [facility], Address [address] [place] [address] Phone Care Team Providers Care Copy Room Technician Name Role Phone Marita Wetzel DO Primary Care Provider Unava ilable Encounter Details Date Type Department Care Team (Late st Contact Info) Description 06/23/2023 Documentation Only [facility] [address] [place] [phone] [place], [place] [address] [place] [phone] Social History Tobacco Use Types Packs/Day Years [...] [facility] [address] [place] [address] 01/26/2025 9:30 AM EDT Clinical Support [facility] [address] [place] [address] 03/08/2025 12:30 PM EST Scheduled Only [facility] [address] [place] [address] documented as of this encounter Visit Diagnoses Not on filedocumented in this encounter Care Teams Copy Room Technician Relationship Specialty Start Date End Date Marita Wetzel DO [address] [place] [address] PCP - General Family Medicine 11/14/22 documented as of this encounter
--- OUTSIDE RECORDS SUMMARY | 2025-01-07 09:14 | XMS_ITS | Encounter Summary ---
Author Organization [facility] Address [address] [place] [address] Care Team Providers Care Music Grapher Name Role Phone Marita Wetzel DO Primary Care Provider +1- [phone] Encounter Details Date Type Department Care Team (Late st Contact Info) Description 05/12/[address] [facility] - Main Lab [address] [facility] [employer] [place] [phone] Marily Gordillo MD [address] [place] [address] Chronic kidney disease, unspecified; Anemia, [...] unspecified documented in this encounter Care Teams Music Grapher Relationship Specialty Start Date End Date Marita Wetzel DO [address] [place] [address] PCP - General 01/09/23 documented as of this encounter
--- OUTSIDE RECORDS SUMMARY | 2025-01-07 09:14 | XMS_ITS | Encounter Summary ---
Author Organization [facility] Address [address] [place] [address] Care Team Providers Care Mortgage Broker Name Role Phone Marita Wetzel Primary Care Provider +1- [phone] Encounter Details Date Type Department Care Team (Late st Contact Info) Description 02/25/2024 Lab Requisition [facility] - Main Lab [address] [facility] [place] [address] Catalina Burr MD [address] [place] [address] Chronic embolism and thrombosis of unspecified vein; [...] phlebotomy fee (02/25/2024 6:30 AM EST) [facility] TRAVEL PHLEBOTOMY FEE Completed 02/25/2024 11:01 AM EST [facility] Blood Venous blood specimen / Unknown Venipuncture / Unknown 02/25/2024 6:30 AM EST 02/25/2024 10:25 AM EST Catalina Burr MD LAB BLOOD ORDERABLES Final Resul t Performing Organization Address [facility] de Phone Number [facility] [address] [place] [address], * (ABNORMAL) Tacrolimus level (02/25/2024 6:30 AM EST) Tacrolimus Level 3.8(L) 5.0 - 20.0 ng/mL 02/28/2024 12:37 PM EST [facility] Comment: Additional Information: Toxic Level [...] developed and the performance characteristics determined by [facility]. This confirmation testing has not been cleared or approved by the FDA. The laboratory is regulated under CLIA as qualified to perform high-complexity testing. This test is used for patient testing purposes. It should not be regarded as investigational or for research. Test performed at [facility], [address], [place], [place] [id number] Ashtyn Leigh MD, PhD - Bender Hand Blood Venous blood specimen / Unknown Venipuncture / Unknown 02/25/2024 6:30 AM EST 02/25/2024 10:25 AM EST Catalina Burr MD LAB BLOOD ORDERABLES Final Resul t Performing Organization Address City/[facility]/ZIP Co de Phone Number [facility] [address] [place], [place] [phone] documented in this encounter Visit Diagnoses Diagnosis Chronic embolism and thrombosis of unspecified vein Acute kidney failure, unspecified (CMS/[facility] V24) Acute kidney failure, unspecified documented in this encounter Care Teams Mortgage Broker Relationship Specialty Start Date End Date Marita Wetzel DO [address] [place] [address] PCP - General 01/09/23 documented as of this encounter
--- OUTSIDE RECORDS SUMMARY | 2025-01-07 09:14 | XMS_ITS | Encounter Summary ---
Author Organization [facility], Address [address] [place] [address] Phone Care Team Providers Care Data Governance Analyst Name Role Phone Marita Wetzel DO Primary Care Provider Unava ilable Encounter Details Date Type Department Care Team (Late st Contact Info) Description 07/04/2023 Documentation Only [facility] [address] [place] [phone] Pauline Aguayo [address] [place] [phone] Social History Tobacco Use Types Packs/Day Years [...] [facility] [address] [place] [address] 01/26/2025 9:30 AM EDT Clinical Support [facility] [address] [place] [address] 03/08/2025 12:30 PM EST Scheduled Only [facility] - [facility] [address] [place] [address] documented as of this encounter Visit Diagnoses Not on filedocumented in this encounter Care Teams Data Governance Analyst Relationship Specialty Start Date End Date Marita Wetzel DO [address] [place] [address] PCP - General Family Medicine 11/14/22 documented as of this encounter
--- OUTSIDE RECORDS SUMMARY | 2025-01-07 09:14 | XMS_ITS | Encounter Summary ---
Author Organization [facility] Address [address] [place] [address] Care Team Providers Care Guard Chief Name Role Phone Marita Wetzel Primary Care Provider +1- [phone] Encounter Details Date Type Department Care Team (Late st Contact Info) Description 03/29/2024 Lab Requisition [facility] - Main Lab [address] [facility] [place] [address] Catalina Burr MD [address] [place] [address] End stage renal disease (CMS/HCC V24, CMS/HCC [...] 6:53 AM EST End stage renal disease (CMS/[facility]) documented in this encounter Results * Tacrolimus level (03/29/2024 6:53 AM EST) Tacrolimus Level 6.8 5.0 - 20.0 ng/mL 03/31/2024 12:22 PM EST [facility] Comment: Additional Information: Toxic Level [...] performed at [facility], [address] , [place] [address] Ashtyn Leigh MD, PhD - Regional [employer] Truck Driver Blood Venous blood specimen / Unknown Venipuncture / Unknown 03/29/2024 6:53 AM EST 03/29/2024 8:32 AM EST us Catalina Burr MD LAB BLOOD ORDERABLES Final Resul t [facility] [address] [place] [address] * (ABNORMAL) Renal function panel (03/29/2024 6:53 AM EST) Sodium 140 133 - 145 mmol/L LAB CHEMISTRY METHOD 03/29/2024 10:07 AM EST [facility] Potassium 3.9 3.5 - 5.5 mmol/L LAB CHEMISTRY METHOD 03/29/2024 10:07 AM EST [facility] Chloride 109 96 - 110 mmol/L LAB CHEMISTRY METHOD 03/29/2024 10:07 AM [facility] CO2 20(L) 21 - 32 mmol/L LAB CHEMISTRY METHOD 03/29/2024 10:07 AM [facility] Anion Gap 11 3 - 11 LAB CHEMISTRY METHOD 03/29/2024 10:07 AM [facility] Glucose 146(H) 70 - 100 mg/dL LAB CHEMISTRY METHOD 03/29/2024 10:07 AM [facility] BUN 42(H) 5 - 25 mg/dL LAB CHEMISTRY METHOD 03/29/2024 10:07 AM [facility] Creatinine 3.47(H) 0.50 - 1.10 mg/dL LAB CHEMISTRY METHOD 03/29/2024 10:07 AM [facility] eGFR 14(L) >=60 mL/min/1. 73m2 LAB CHEMISTRY METHOD 03/29/2024 10:07 AM [facility] Comment:Calculation based on the Chronic Kidney Disease Epidemiology Collaboration (CKD-EPI) equation refit without adjustment for race. BUN/Creatinine Ratio 12.1 LAB CHEMISTRY METHOD 03/29/2024 10:07 AM [facility] Albumin 2.0(L) 3.2 - 5.0 g/dL LAB CHEMISTRY METHOD 03/29/2024 10:07 AM [facility] Calcium 8.8 8.5 - 10.5 mg/dL LAB CHEMISTRY METHOD 03/29/2024 10:07 AM [facility] Phosphorus 2.5 2.5 - 4.5 mg/dL LAB CHEMISTRY METHOD 03/29/2024 10:07 AM [facility] Blood Venous blood specimen / Unknown Venipuncture / Unknown 03/29/2024 6:53 AM EST 03/29/2024 8:32 AM EST us Catalina Burr MD LAB BLOOD ORDERABLES Final Resul t [facility] [address] [place] [address], [place] [phone] * (ABNORMAL) Complete blood count (03/29/2024 6:53 AM EST) WBC 11.0(H) 4.8 - 10.8 K/mcL LAB HEMETOLOGY METHOD 03/29/2024 9:47 AM [facility] RBC 2.80(L) 3.80 - 4.80 M/[facility] LAB HEMETOLOGY METHOD 03/29/2024 9:47 AM [facility] Hemoglobin 7.7(L) 11.5 - 16.0 g/dL LAB HEMETOLOGY METHOD 03/29/2024 9:47 AM [facility] Hematocrit 27.0(L) 35.0 - 47.0 % LAB HEMETOLOGY METHOD 03/29/2024 9:47 AM [facility] MCV 97.8 79.0 - 98.0 FL LAB HEMETOLOGY METHOD 03/29/2024 9:47 AM [facility] MCH 27.9 27.0 - 32.0 pcg LAB HEMETOLOGY METHOD 03/29/2024 9:47 AM [facility] MCHC 28.5(L) 32.0 - 37.0 g/dL LAB HEMETOLOGY METHOD 03/29/2024 9:47 AM [facility] RDW 17.5(H) 11.0 - 15.0 % LAB HEMETOLOGY METHOD 03/29/2024 9:47 AM [facility] Platelets 301 130 - 400 K/[facility] LAB HEMETOLOGY METHOD 03/29/2024 9:47 AM [facility] MPV 10.3 7.0 - 11.0 FL LAB HEMETOLOGY METHOD 03/29/2024 9:47 AM [facility] NRBC 0.0 <1.0 % LAB HEMETOLOGY METHOD 03/29/2024 9:47 AM [facility] NRBC Absolute 0.00 <0.10 K/mcL LAB HEMETOLOGY METHOD 03/29/2024 9:47 AM [facility] Blood Venous blood specimen / Unknown Venipuncture / Unknown 03/29/2024 6:53 AM EST 03/29/2024 8:32 AM EST us Catalina Burr MD LAB BLOOD ORDERABLES Final Resul t [facility] ([facility]) [facility] [address] [place] [address], documented in this encounter Visit Diagnoses Diagnosis End stage renal disease (CMS/HCC V24, CMS/HCC V28) End stage renal disease documented in this encounter Care Teams Guard Chief Relationship Specialty Start Date End Date Marita Wetzel DO [address] [place] [address] PCP - General 01/09/23 documented as of this encounter
== END 2025-01-06 08:37 | disposition home or self-care (01) ==
LOC: HO.HOSX 08:36
PROVIDERS: Visit Provider Physician Assistant
DX: S42.402D Unspecified fracture of lower end of left humerus, subsequent encounter for fracture with routine healing (principal); W18.30XD Fall on same level, unspecified, subsequent encounter
CPT/HCPCS: 73080; 99202

== ENCOUNTER 2025-01-06 13:33 | Outpatient (AMB) | payer MEDICARE, OTHER, SELFPAY ==
--- NOTE | 2025-01-06 13:45 | MHC.OFFVIS ---
Intake Visit Reasons: FC-Lt elbow closed fx s/p fall DOI: 11/26/24 Intake Note: Alix is a 64 year old right hand dominant female who presents today for a evaluation of her left elbow closed fx, DOI 11/26/24. At the ED she was placed in a sling. Patient reports she was walking into the nail salon when her walker got caught on the sidewalk, causing her to fall onto her left side. She mentions that she hurt her left elbow and left hip. Patient mentions that she is feeling very tired and in a lot of pain in her hip. She states that her elbow feels okay. IMPRESSION: 1. Chip fracture at the tip of the coronoid process. 2. Thin curvilinear ossific or calcific focus along the posterior aspect of the distal humerus on the lateral view, which may represent a fragmented medial epicondyle enthesophyte. 3. Elbow joint effusion. 4. Small olecranon enthesophyte at the triceps tendon insertion, possibly with a small amount of subcutaneous air. Correlate for soft tissue wound. Allergies codeine (CODEINE) Allergy (Intermediate, Verified 01/06/25 13:51) Hives and pruritus oxycodone (OXYCODONE) Allergy (Intermediate, Verified 01/06/25 13:51) HIVES HPI HPI FC-Lt elbow closed fx s/p fall DOI: 11/26/24: Details: Ms. Sharp is a 64-year-old right-hand dominant female who presents to the office today for evaluation of a left elbow injury that she sustained after a mechanical fall on 11/26/2024. She reports that she was walking into the nail salon when her walker got caught on the sidewalk causing her to fall onto her left side. Patient was seen in the emergency department and diagnosed with a small chip fracture of the tip of the coronoid process. She was instructed to follow up with orthopedics outpatient for further evaluation and treatment. 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 Mother CHF (congestive heart failure) Social History Household Members: Spouse Housing: House Do you presently have visiting nurse or other home services: Yes Alcohol intake: never Comment: patient is bedbound at this time Patient Tobacco Use Status: Never used Tobacco Advance Directives Date on File: 04/07/24 service: Yes Review of Systems Const All systems reviewed & are unremarkable except as noted in HPI and below Physical Exam Const General: cooperative, healthy appearing and no acute distress Resp Effort & Inspection: normal respiratory effort and able to speak in complete sentences Extrem Other: Left elbow: Normal to inspection. No ecchymosis, erythema, or edema. No tenderness to palpation over the olecranon. No tenderness to the medial or lateral epicondyle. NVI. Psych Appearance: grossly normal Mental Status: mental status grossly normal Attitude: cooperative Assessment & Plan Assessment & Plan (1) Left elbow fracture: Code(s): S42.402A - Unspecified fracture of lower end of left humerus, initial encounter for closed fracture Category: Medical Plan Ms. Sharp is a 64-year-old right-hand dominant female who presents to the office today for evaluation of a left elbow injury that she sustained after a mechanical fall on 11/26/2024. She reports that she was walking into the nail salon when her walker got caught on the sidewalk causing her to fall onto her left side. Patient was seen in the emergency department and diagnosed with a small chip fracture of the tip of the coronoid process. She was instructed to follow up with orthopedics outpatient for further evaluation and treatment. While the office today, the patient is no longer experiencing pain and has full range of motion of the elbow. I have recommended she return back to normal activities as tolerated using pain as her guide. She will follow up with Orthopedics p.r.n., sooner if needed. X-rays of the the left elbow which were obtained while in the office today and were reviewed by me, Omayra Solano PA-C, revealed chip fracture of the tip of the coranoid process. Orders: Orders XR elbow LT min 3V Today M25.529 - Pain in unspecified elbow Coding Level of Care Code New Pt Level 3 (98765) Diagnoses Left elbow fracture S42.402A
--- OUTSIDE RECORDS SUMMARY | 2025-01-06 15:34 | XMS_ITS | Encounter Summary ---
Author Organization [facility] Address [address] [place] [address] Phone Care Team Providers Care Tube Tester Name Role Phone Marita Wetzel DO Primary Care Provider Unava ilable Encounter Details Date Type Department Care Team (Late st Contact Info) Description 09/12/2023 Documentation Only [facility] [address] [place] [phone] [place], [place], [place] [address] [place] [phone] Social History Tobacco Use Types Packs/Day Years [...] Care Team (Late st Contact Info) Description 01/26/2025 9:30 AM EDT Clinical Support [facility] [address] [place] [address] 03/08/2025 12:30 PM EST Scheduled Only [facility] [address] [phone] documented as of this encounter Visit Diagnoses Not on filedocumented in this encounter Care Teams Tube Tester Relationship Specialty Start Date End Date Marita Wetzel DO [address] [place] [address] PCP - General Family Medicine 11/14/22 documented as of this encounter
--- OUTSIDE RECORDS SUMMARY | 2025-01-06 15:34 | XMS_ITS | Encounter Summary ---
Author Organization [facility] Address [address] [place] [address] Phone Care Team Providers Care Assembler Flexible Leads Name Role Phone Marita Wetzel DO Primary Care Provider Unava ilable Encounter Details Date Type Department Care Team (Late st Contact Info) Description 04/18/2023 Documentation Only [facility] [address] [phone] Jerod Adames DO [address] [place] [address] [place] [phone] Social History Tobacco Use Types Packs/Day Years [...] Support [facility] Center [address] [place] [address] 03/08/2025 12:30 PM EST Scheduled Only [facility] [address] [place] [phone] documented as of this encounter Visit Diagnoses Not on filedocumented in this encounter Care Teams Assembler Flexible Leads Relationship Specialty Start Date End Date Marita Wetzel DO [address] [place] [address] PCP - General Family Medicine 11/14/22 documented as of this encounter
--- OUTSIDE RECORDS SUMMARY | 2025-01-06 15:34 | XMS_ITS | Encounter Summary ---
Author Organization [facility] [place], Address [address] [place] [address] Phone Care Team Providers Care Network Admin Name Role Phone Marita Wetzel DO Primary Care Provider Unava ilable Encounter Details Date Type Department Care Team (Late st Contact Info) Description 01/21/2024 Documentation Only [facility] [address] [place] [phone] Pauline Aguayo [address] [place] [phone] Social History Tobacco Use Types Packs/Day Years [...] Support [facility] Center [address] [place] [address] [place] [phone] 03/08/2025 12:30 PM EST Scheduled Only [facility] Access [address] [place] [phone] documented as of this encounter Visit Diagnoses Not on filedocumented in this encounter Care Teams Network Admin Relationship Specialty Start Date End Date Marita Wetzel DO [address] [place] [address] PCP - General Family Medicine 11/14/22 documented as of this encounter
--- OUTSIDE RECORDS SUMMARY | 2025-01-06 15:34 | XMS_ITS | Encounter Summary ---
Author Organization [facility] Address [address] [place] [address] Phone Care Team Providers Care Investment Accounting Clerk Name Role Phone Marita Wetzel DO Primary Care Provider Unava ilable Encounter Details Date Type Department Care Team (Late st Contact Info) Description 09/11/2023 Documentation Only [facility] [address] [place] [phone] Pauline Aguayo [address] [place] [phone] Social History Tobacco Use Types Packs/Day Years [...] Support [facility] Center [address] [place] [address] 03/08/2025 12:30 PM EST Scheduled Only [facility] [address] [place] [phone] documented as of this encounter Visit Diagnoses Not on filedocumented in this encounter Care Teams Investment Accounting Clerk Relationship Specialty Start Date End Date Marita Wetzel DO [address] [place] [address] PCP - General Family Medicine 11/14/22 documented as of this encounter
--- OUTSIDE RECORDS SUMMARY | 2025-01-06 15:34 | XMS_ITS | Encounter Summary ---
Author Organization [facility] Address [address] [place] [address] Phone Care Team Providers Care Sticker On Name Role Phone Marita Wetzel DO Primary Care Provider Unava ilable Encounter Details Date Type Department Care Team (Late st Contact Info) Description 03/18/2023 Documentation Only [facility] [address] [place] [place] [phone] Bernardo Doty MD [address] [place] [address] [place] [address] Social History Tobacco Use Types [...] Of [facility] Center [address] [place] [address] 03/08/2025 12:30 PM EST Scheduled Only [facility] [address] [place] [address] documented as of this encounter Visit Diagnoses Not on filedocumented in this encounter Care Teams Sticker On Relationship Specialty Start Date End Date Marita Wetzel DO [address] [place] [address] PCP - General Family Medicine 11/14/22 documented as of this encounter
--- OUTSIDE RECORDS SUMMARY | 2025-01-06 15:34 | XMS_ITS | Encounter Summary ---
Author Organization [facility] Address [address] [place] [address] Phone Care Team Providers Care Clinical Informatics Strategist Name Role Phone Marita Wetzel DO Primary Care Provider Unava ilable Encounter Details Date Type Department Care Team (Late st Contact Info) Description 08/27/2023 Documentation Only [facility] [address] [place] [phone] [place], [place], [place] [address] [place] [phone] Social History Tobacco Use Types Packs/Day Years [...] Support [facility] V[facility] Access Center [address] [place] [phone] 03/08/2025 12:30 PM EST Scheduled Only [facility] Center [address] [place] [place] [phone] documented as of this encounter Visit Diagnoses Not on filedocumented in this encounter Care Teams Clinical Informatics Strategist Relationship Specialty Start Date End Date Marita Wetzel DO [address] [place] [address] PCP - General Family Medicine 11/14/22 documented as of this encounter
--- OUTSIDE RECORDS SUMMARY | 2025-01-06 15:34 | XMS_ITS | Encounter Summary ---
Author Organization [facility] Address [address] [place] [address] Phone Care Team Providers Care Candy Catcher Name Role Phone Marita Wetzel DO Primary Care Provider Unava ilable Encounter Details Date Type Department Care Team (Late st Contact Info) Description 06/14/2022 Documentation Only [facility] Of [address] [place] [phone] Candace Adam PA [address] [place] [address] [place] [phone] Social History Tobacco Use Types Packs/Day Years [...] Of [facility] Vascular Access [address] [place] [phone] 03/08/2025 12:30 PM EST Scheduled Only [facility] Of [facility] Vascular Access [address] [place] [phone] documented as of this encounter Visit Diagnoses Not on filedocumented in this encounter Care Teams Candy Catcher Relationship Specialty Start Date End Date Marita Wetzel DO [address] [place] [address] PCP - General Family Medicine 11/14/22 documented as of this encounter
--- OUTSIDE RECORDS SUMMARY | 2025-01-06 15:34 | XMS_ITS | Encounter Summary ---
Author Organization [facility] Of [facility] Address [address] [place] [address] Phone Care Team Providers Care Life Support Technician Name Role Phone Marita Wetzel DO Primary Care Provider Unava ilable Encounter Details Date Type Department Care Team (Late st Contact Info) Description 06/25/2022 Documentation Only [facility] Of [address] [place] [phone] Pauline Aguayo [address] [place] [phone] Social History Tobacco Use Types Packs/Day Years [...] [facility] Vascular Access Center [address] [place] [phone] 03/08/2025 12:30 PM EST Scheduled Only [facility] Of [facility] Vascular Access Center [address] [place] [phone] documented as of this encounter Visit Diagnoses Not on filedocumented in this encounter Care Teams Life Support Technician Relationship Specialty Start Date End Date Marita Wetzel DO [address] [place] [address] PCP - General Family Medicine 11/14/22 documented as of this encounter
--- OUTSIDE RECORDS SUMMARY | 2025-01-06 15:34 | XMS_ITS | Encounter Summary ---
Author Organization [facility] Address [address] [place] [address] Phone Care Team Providers Care Health Care Aide Name Role Phone Marita Wetzel DO Primary Care Provider Unava ilable Encounter Details Date Type Department Care Team (Late st Contact Info) Description 10/17/2023 Documentation Only [facility] Of [address] [place] [phone] [place], [place] [address] [place] [phone] Social History Tobacco Use Types Packs/Day Years [...] Support [facility] Of [facility] - Vascular Access Center [address] [facility] [phone] 03/08/2025 12:30 PM EST Scheduled Only [facility] Of [facility] Vascular Access Center [address] [place] [phone] documented as of this encounter Visit Diagnoses Not on filedocumented in this encounter Care Teams Health Care Aide Relationship Specialty Start Date End Date Marita Wetzel DO [address] [place] [address] PCP - General Family Medicine 11/14/22 documented as of this encounter
--- OUTSIDE RECORDS SUMMARY | 2025-01-06 15:34 | XMS_ITS | Encounter Summary ---
Author Organization [facility] Of [facility] [place] [address] Phone Care Team Providers Care Financial Recording Clerk Name Role Phone Fouzia Wetzelfer Primary Care Provider Unava ilable Encounter Details Date Type Department Care Team (Late st Contact Info) Description 03/18/2023 Documentation Only [facility] Of [address] [place] [phone] Srinivas Agrawal MD [address] [place] [address] [place] [address] Social History Tobacco Use Types [...] Services Of [facility] Vascular Access [address] [place] [address] 03/08/2025 12:30 PM EST Scheduled Only [facility] Vascular Access [address] [place] [phone] documented as of this encounter Visit Diagnoses Not on filedocumented in this encounter Care Teams Financial Recording Clerk Relationship Specialty Start Date End Date Marita Wetzel DO [address] [place] [address] PCP - General Family Medicine 11/14/22 documented as of this encounter
--- OUTSIDE RECORDS SUMMARY | 2025-01-06 15:34 | XMS_ITS | Encounter Summary ---
Author Organization [facility] [place], Address PO [facility] [place] [address] Phone Care Team Providers Care Tool Inspector Name Role Phone Marita Wetzel DO Primary Care Provider Unava ilable Reason for Visit * Reason Comments Med Refill Encounter Details Date Type Department Care Team (Late Contact Info) Description 06/30/2024 Refill [facility] [place] [address] [place] [phone] Srinivas Agrawal MD [address] [facility] [place] [phone] Social History Tobacco Use Types Packs/Day Years [...] Department Care Team (Late Contact Info) Description 01/26/2025 9:30 AM EDT Clinical Support [facility] Of [facility] Vascular Access Center [address] [place] [phone] 03/08/2025 12:30 PM EST Scheduled Only [facility] Vascular Access Center [address] [place] [phone] documented as of this encounter Procedures Procedure Name Priority Date/Time Associated Diagnosis Comments HEMATOLOGY Routine 06/30/2024 documented in this encounter Results * (ABNORMAL) HEMATOLOGY (06/30/2024) Hemoglobin 6.3(L) 12.0 - 16.0 g/dL [facility] Hemoglobin x 3 18.9(L) 36.0 - 48.0 % [facility] 06/30/2024 07/01/2024 10: 49 AM EDT Narrative [facility] - 07/01/2024 Unless otherwise specified, test(s) performed at: [facility], [address] [place] [address] LIGHT OUT EXAMINER: Dwayne Fuentes M.D. For any questions, please call customer service at FREQUENCY:OTHER Resulting Agency Comment Specimen source: Blood Srinivas Agrawal MD LAB BLOOD ORDERABLES Final Result [facility] See order comments or contact performing lab Unknown, [place] documented in this encounter Visit Diagnoses Not on filedocumented in this encounter Care Teams Tool Inspector Relationship Specialty Start Date End Date Marita Wetzel DO [address] [place] [address] PCP - General Family Medicine 11/14/22 documented as of this encounter
--- OUTSIDE RECORDS SUMMARY | 2025-01-06 15:34 | XMS_ITS | Encounter Summary ---
Author Organization [facility] Address [address] [place] [address] Care Team Providers Care Money Counter Name Role Phone Marita Wetzel DO Primary Care Provider +1- [phone] Encounter Details Date Type Department Care Team (Late st Contact Info) Description 05/31/2024 Lab Requisition [facility] - Main Lab [address] [facility] [place] [phone] Marily Gordillo MD [address] [place] [address] Acute kidney failure, unspecified (CMS/HCC [...] unspecified documented in this encounter Care Teams Money Counter Relationship Specialty Start Date End Date Marita Wetzel DO [address] [place], [place] PCP - General 01/09/23 documented as of this encounter
--- OUTSIDE RECORDS SUMMARY | 2025-01-06 15:34 | XMS_ITS | Encounter Summary ---
Author Organization [facility] Of [facility] Address [address] [place] [address] Phone Care Team Providers Care Weed Eradicator Name Role Phone Marita Wetzel DO Primary Care Provider Unava ilable Encounter Details Date Type Department Care Team (Late st Contact Info) Description 08/28/2023 Documentation Only [facility] Of [address] [place] [phone] [place], [place], [place] [address] [place] [phone] Social History Tobacco Use Types Packs/Day Years [...] Support [facility] Of [facility] Vascular Access Center [address] [place] [phone] 03/08/2025 12:30 PM EST Scheduled Only [facility] Vascular Access Center [address] [place] [phone] documented as of this encounter Visit Diagnoses Not on filedocumented in this encounter Care Teams Weed Eradicator Relationship Specialty Start Date End Date Marita Wetzel DO [address] [place] [address] PCP - General Family Medicine 11/14/22 documented as of this encounter
--- OUTSIDE RECORDS SUMMARY | 2025-01-06 15:34 | XMS_ITS | Encounter Summary ---
Author Organization [facility] Of [facility] Address [address] [place] [address] Phone Care Team Providers Care Incising Machine Operator Name Role Phone Marita Wetzel DO Primary Care Provider Unava ilable Encounter Details Date Type Department Care Team (Late st Contact Info) Description 05/20/2023 Documentation Only [facility] Of [address] [place] [phone] [place], [place], [place] [address] [place] [phone] Social History Tobacco Use Types Packs/Day Years [...] [facility] Center [address] [facility] [place] [phone] 03/08/2025 12:30 PM EST Scheduled Only [facility] Of [facility] Vascular Access Center [address] [facility] [place] [phone] documented as of this encounter Visit Diagnoses Not on filedocumented in this encounter Care Teams Incising Machine Operator Relationship Specialty Start Date End Date Marita Wetzel DO [address] [place] [address] PCP - General Family Medicine 11/14/22 documented as of this encounter
--- OUTSIDE RECORDS SUMMARY | 2025-01-06 15:34 | XMS_ITS | Encounter Summary ---
Author Organization [facility] Of [facility] Address [address] [place] [address] Phone Care Team Providers Care Fish Flipper Name Role Phone Marita Wetzel DO Primary Care Provider Unava ilable Encounter Details Date Type Department Care Team (Late st Contact Info) Description 10/24/2023 Documentation Only [facility] Of [address] [place] [phone] [place], [place], [place] [address] [place] [phone] Social History Tobacco Use Types Packs/Day Years [...] Services Of [facility] Vascular Access Center [address] [facility] [place] [phone] 03/08/2025 12:30 PM EST Scheduled Only [facility] Vascular Access Center [address] [facility] [place] [place] [phone] documented as of this encounter Visit Diagnoses Not on filedocumented in this encounter Care Teams Fish Flipper Relationship Specialty Start Date End Date Marita Wetzel DO [address] [place] [address] PCP - General Family Medicine 11/14/22 documented as of this encounter
--- OUTSIDE RECORDS SUMMARY | 2025-01-06 15:34 | XMS_ITS | Encounter Summary ---
Author Organization [facility] Of [place], Address [address] [place] [address] Phone Care Team Providers Care Freight Loading Supervisor Name Role Phone Marita Wetzel DO Primary Care Provider Unava ilable Encounter Details Date Type Department Care Team (Late st Contact Info) Description 01/03/2025 Treatment [facility], [address] [place] [address] Jeanne Bailey MD [address] [place] [address] [place] [phone] End stage renal disease; Dependence on renal [...] Dialysis Note - Jeanne Bailey MD - 01/03/2025 12:00 AM EDT BASIC NOTE Patient: Alix Sharp : 1960 Note Author: JEANNE BAILEY MD Service Date: 01/03/2025 This patient was personally seen [id number] for a basic visit as part of routine monthly dialysis care for end stage renal disease. Attending Ball Holder: JEANNE BAILEY MD Dialysis Location: [facility] DIALYSIS Schedule: Shift: 3 OVERVIEW Patient is stable. COMMENTS: 11/01 Kt/V suboptimal increase time to 3 hours and 30 minutes. HOME [facility]S [facility] carvedilol 25 mg tablet Take [...] times a day. [Take with meals] [facility] Allergies Allergen: codeine Reaction: Unknown Allergen: oxycodone Reaction: Unknown DIALYSIS PRESCRIPTION Treatment Data Treatment Date: 01/03/2025 started at: 11:21 AM Dialysate / Machine Temp (prescribed): 36.0*C Dialysate / Machine Temp (actual): 35.5*C BFR (prescribed): 450 BFR (average delivered): 350 DFR (prescribed): Manual 800 DFR (average delivered): 800 Prescribed Time: 03:30 Actual Time: 03:19 EDW (kg): 69.6 Dialyzer: FX CorAL 80 Dialysate: 2.0 K, 2.5 Ca, 1.0 Mg, 100 Dextrose ([id number]) Sodium: 137 Bicarb: 35 Pre Dialysis Vitals Pre BP Sit: 157/72 Pre Wt (kg): 72.0 EDW Deviation (kg): 2.4 Temp: 98.2*F Post Dialysis Vitals Post BP Sit: 138/68 Post Wt (kg): 68.9 TREATMENT MEDICATIONS ORDERS Iron Sucrose (Venofer) 100 mg IVP 3X Week During Dialysis 12/24/2024 - 01/14/2025 Vitamin D (Calcitriol) Oral 0.25 mcg ORAL 3X Week 10/11/2024 - 10/10/2025 BP AND FLUID ASSESSMENT Post BP Sit 138/68 - 01/03/2025 172/85 - 12/31/2024 149/73 - 12/29/2024 Post Wt (kg) 68.9 - 01/03/2025 69.0 - 12/31/2024 69.7 - 12/29/2024 EDW (kg) 69.6 - 01/03/2025 69.6 - 12/31/2024 69.6 - 12/29/2024 Deviation (kg) -0.7 - 01/03/2025 -0.6 - 12/31/2024 0.1 - 12/29/2024 ADEQUACY ASSESSMENT spKt/V (Daugirdas II) 1.58 (12/22/24) 1.69 (12/13/24) 1.21 (12/06/24) eKdrt/V 1.35 (12/22/24) 1.43 (12/13/24) 1.03 (12/06/24) % Urea Reduction 73 (12/22/24) 75 (12/13/24) 62 (12/06/24) BUN 40 (12/22/24) 68 (12/13/24) 53 (12/06/24) BUN Post Dialysis 11 (12/22/24) 17 (12/13/24) 20 (12/06/24) Creatinine 6.75 (12/08/24) 5.49 (11/03/24) 5.54 (10/06/24) Bicarbonate (CO2) 22 (12/08/24) 23 (11/03/24) 19 (10/06/24) Sodium 132 (12/08/24) 132 (11/03/24) 135 (10/06/24) ANEMIA ASSESSMENT Hemoglobin 9.8 (12/29/24) 10.1 (12/22/24) 10.7 (12/17/24) Iron Saturation (TSat) 24 (12/08/24) 20 (11/03/24) [...] 10/06/24 105 07/07/24 54 04/23/24 Aluminum 31 04/30/24 97 04/23/24 NUTRITION ASSESSMENT Albumin 3.5 12/08/24 3.6 11/03/24 3.6 10/06/24 Potassium 4.8 12/10/24 4.0 12/08/24 4.6 11/05/24 eNPCR 0.73 12/22/24 0.95 12/13/24 0.70 12/06/24 Hemoglobin A1C 6.1 10/06/24 5.7 07/07/24 5.8 04/23/24 ADDITIONAL LABS WBC 3.70 (10/06/24) 3.84 (07/07/24) 9.46 (04/23/24) Hepatitis B Surface Ab 443 (10/06/24) 632 (04/23/24) 1,682.0 (04/20/24) ADDITIONAL COMMENT COMMENTS: 12/27/2024 Patient is stable Medications reviewed Physical Exam [...] reviewed. Dietary adjustments made in conjunction with tool operator. 7.Transplant: The patient is being evaluated for a kidney transplant. 11/19/24 Patient is stable Medications reviewed Physical [...] reviewed. Dietary adjustments made in conjunction with tool operator. 7.Transplant: The patient is being evaluated [...] reviewed. Dietary adjustments made in conjunction with tool operator. 7.Transplant: The patient is being evaluated [...] reviewed. Dietary adjustments made in conjunction with tool operator. 7.Transplant: The patient is being evaluated [...] reviewed. Dietary adjustments made in conjunction with tool operator. 7.Transplant: Not a candidate. 07/21/24 Patient [...] reviewed. Dietary adjustments made in conjunction with tool operator. 7.Transplant: not a candidate. 06/21/24 Patient is stable, recently cd from [facility] after episode of pneumonia [...] reviewed. Dietary adjustments made in conjunction with tool operator. Transplant: Not a candidate. 05/24/24 Patient [...] reviewed. Dietary adjustments made in conjunction with tool operator. 7.Transplant: Not a candidate. decreasing tacrolimus [...] reviewed. Dietary adjustments made in conjunction with tool operator. Transplant: The patient will be re-evaluated for a kidney transplant. Signed by: JEANNE BAILEY MD on 01/03/2025 at 06:47:37 PM Transcribed by: JEANNE BAILEY MD on 01/03/2025 at 06:47:37 PM documented in this encounter Plan of Treatment Upcoming Encounters Date Type Department Care Team (Late st Contact Info) Description 01/26/2025 9:30 AM EDT Clinical Support [facility] Vascular Access Center [address] [place] [address] [place] [address] 03/08/2025 12:30 PM EST Scheduled Only [facility] Vascular Access [address] [place] [address] documented as of this encounter Visit Diagnoses Diagnosis End stage renal disease Dependence on renal dialysis documented in this encounter Care Teams Freight Loading Supervisor Relationship Specialty Start Date End Date Marita Wetzel DO [address] [place] [address] PCP - General Family Medicine 11/14/22 documented as of this encounter
--- OUTSIDE RECORDS SUMMARY | 2025-01-06 15:34 | XMS_ITS | Encounter Summary ---
Author Organization [facility] Address [address] [place] [address] Care Team Providers Care Net Mender Name Role Phone Marita Wetzel DO Primary Care Provider +1- [phone] Encounter Details Date Type Department Care Team (Late st Contact Info) Description 05/30/2024 Lab Requisition [facility] - Main Lab [address] [facility] [place] [phone] Marily Gordillo MD [address] [place] [phone] Chronic embolism and thrombosis of unspecified vein; [...] unspecified documented in this encounter Care Teams Net Mender Relationship Specialty Start Date End Date Marita Wetzel DO [address] [place], [place] PCP - General 01/09/23 documented as of this encounter
--- OUTSIDE RECORDS SUMMARY | 2025-01-06 15:34 | XMS_ITS | Encounter Summary ---
Author Organization [facility] [place], Address [address] [place] [address] Phone Care Team Providers Care Arrow Point Attacher Name Role Phone Marita Wetzel DO Primary Care Provider Unava ilable Reason for Visit * Reason Comments Med Refill Encounter Details Date Type Department Care Team (Late Contact Info) Description 12/06/2020 Refill [facility] [place] [address] [place] [phone] Bernardo Doty MD [address] [facility] [place] [phone] Social History Tobacco Use Types Packs/Day Years [...] Support [facility] Vascular Access Center [address] [place] [address] 03/08/2025 12:30 PM EST Scheduled Only [facility] Vascular Access Center [address] [place] [phone] documented as of this encounter Visit Diagnoses Not on filedocumented in this encounter Care Teams Arrow Point Attacher Relationship Specialty Start Date End Date Marita Wetzel DO [address] [place] [address] PCP - General Family Medicine 11/14/22 documented as of this encounter
--- OUTSIDE RECORDS SUMMARY | 2025-01-06 15:34 | XMS_ITS | Encounter Summary ---
Author Organization [facility] Address [address] [place] [address] Care Team Providers Care Novelty Twister Operator Name Role Phone Marita Wetzel DO Primary Care Provider +1- [phone] Encounter Details Date Type Department Care Team (Late st Contact Info) Description 05/21/2024 Lab Requisition [facility] - Main Lab [address] [facility] [place] [phone] Marily Gordillo MD [address] [place] [phone] Chronic embolism and thrombosis of unspecified vein; [...] unspecified documented in this encounter Care Teams Novelty Twister Operator Relationship Specialty Start Date End Date Marita Wetzel DO [address] [place], [place] PCP - General 01/09/23 documented as of this encounter
--- OUTSIDE RECORDS SUMMARY | 2025-01-06 15:34 | XMS_ITS | Encounter Summary ---
Author Organization [facility], Address [address] [place] [address] Phone Care Team Providers Care Iron Caster Name Role Phone Marita Wetzel DO Primary Care Provider Unava ilable Encounter Details Date Type Department Care Team (Late st Contact Info) Description 01/05/2025 Treatment [facility], [address] [place] [address] Jeanne Bailey MD [address] [place] [address] [place] [phone] End stage renal disease; Dependence on renal [...] Dialysis Note - Jeanne Bailey MD - 01/05/2025 12:00 AM EDT BASIC NOTE Patient: Alix Sharp : 1960 Note Author: JEANNE BAILEY MD Service Date: 01/05/2025 This patient was personally seen [id number] for a basic visit as part of routine monthly dialysis care for end stage renal disease. Attending Diamond Grinder: JEANNE BAILEY MD Dialysis Location: [facility] Schedule: Shift: 3 OVERVIEW Patient is stable. COMMENTS: 11/01 Kt/V suboptimal increase time to 3 hours and 30 minutes. HOME MEDICATIONS Current [facility] Outpatient Medications carvedilol 25 mg tablet Take [...] times a day. [Take with meals] Current [facility] Allergies Allergen: codeine Reaction: Unknown Allergen: oxycodone Reaction: Unknown DIALYSIS PRESCRIPTION Treatment Data Treatment Date: 01/05/2025 started at: 11:03 AM Dialysate / Machine Temp (prescribed): 36.0*C Dialysate / Machine Temp (actual): 36.0*C BFR (prescribed): 450 BFR (average delivered): 450 DFR (prescribed): Manual 800 DFR (average delivered): 800 Prescribed Time: 03:30 Actual Time: 03:32 EDW (kg): 68.9 Dialyzer: FX CorAL 80 Dialysate: 2.0 K, 2.5 Ca, 1.0 Mg, 100 Dextrose ([id number]) Sodium: 137 Bicarb: 35 Pre Dialysis Vitals Pre BP Sit: 149/74 Pre Wt (kg): 71.9 EDW Deviation (kg): 3.0 Temp: 98.6*F Post Dialysis Vitals Post BP Sit: 166/74 Post Wt (kg): 68.7 TREATMENT MEDICATIONS ORDERS Iron Sucrose (Venofer) 100 mg IVP 3X Week During Dialysis 12/24/2024 - 01/14/2025 Vitamin D (Calcitriol) Oral 0.25 mcg ORAL 3X Week 10/11/2024 - 10/10/2025 BP AND FLUID ASSESSMENT Post BP Sit 166/74 - 01/05/2025 138/68 - 01/03/2025 172/85 - 12/31/2024 Post Wt (kg) 68.7 - 01/05/2025 68.9 - 01/03/2025 69.0 - 12/31/2024 EDW (kg) 68.9 - 01/05/2025 69.6 - 01/03/2025 69.6 - 12/31/2024 Deviation (kg) -0.2 - 01/05/2025 -0.7 - 01/03/2025 -0.6 - 12/31/2024 ADEQUACY ASSESSMENT spKt/V (Daugirdas II) 1.58 (12/22/24) [...] reviewed. Dietary adjustments made in conjunction with mechanical engineering professor. 7.Transplant: The patient is being evaluated for [...] reviewed. Dietary adjustments made in conjunction with mechanical engineering professor. 7.Transplant: The patient is being evaluated for [...] reviewed. Dietary adjustments made in conjunction with mechanical engineering professor. 7.Transplant: The patient is being evaluated for [...] reviewed. Dietary adjustments made in conjunction with mechanical engineering professor. 7.Transplant: The patient is being evaluated for [...] reviewed. Dietary adjustments made in conjunction with mechanical engineering professor. 7.Transplant: Not a candidate. 07/21/24 Patient is [...] reviewed. Dietary adjustments made in conjunction with mechanical engineering professor. 7.Transplant: not a candidate. 06/21/24 Patient is stable, recently cd from [facility] after episode of pneumonia Medications reviewed Physical [...] reviewed. Dietary adjustments made in conjunction with mechanical engineering professor. Transplant: Not a candidate. 05/24/24 Patient is [...] reviewed. Dietary adjustments made in conjunction with mechanical engineering professor. 7.Transplant: Not a candidate. decreasing tacrolimus doing [...] reviewed. Dietary adjustments made in conjunction with mechanical engineering professor. Transplant: The patient will be re-evaluated for a kidney transplant. Signed by: JEANNE BAILEY MD on 01/05/2025 at 10:14:52 PM Transcribed by: JEANNE BAILEY MD on 01/05/2025 at 10:14:52 PM documented in this encounter Plan of Treatment Upcoming Encounters Date Type Department Care Team (Late st Contact Info) Description 01/26/2025 9:30 AM EDT Clinical Support [facility] [address] [place] [address] [place] [address] 03/08/2025 12:30 PM EST Scheduled Only [facility] Access [address] [place] [address] documented as of this encounter Visit Diagnoses Diagnosis End stage renal disease Dependence on renal dialysis documented in this encounter Care Teams Iron Caster Relationship Specialty Start Date End Date Marita Wetzel DO [address] [place] [address] PCP - General Family Medicine 11/14/22 documented as of this encounter
--- OUTSIDE RECORDS SUMMARY | 2025-01-06 15:34 | XMS_ITS | Encounter Summary ---
Author Organization [facility] Address [address] [place] [address] Phone Care Team Providers Care Precision Millwright Name Role Phone Marita Wetzel DO Primary Care Provider Unava ilable Encounter Details Date Type Department Care Team (Late st Contact Info) Description 08/11/2023 Documentation Only [facility] Of [address] [place] [phone] [place], [place] [address] [place] [phone] Social History Tobacco Use Types Packs/Day Years [...] [facility] [address] [place] [phone] 03/08/2025 12:30 PM EST Scheduled Only [facility] [address] [place] [phone] documented as of this encounter Visit Diagnoses Not on filedocumented in this encounter Care Teams Precision Millwright Relationship Specialty Start Date End Date Marita Wetzel DO [address] [place] [address] PCP - General Family Medicine 11/14/22 documented as of this encounter
--- OUTSIDE RECORDS SUMMARY | 2025-01-06 15:34 | XMS_ITS | Encounter Summary ---
Author Organization [facility] Address [address] [place] [place] [address] Phone Care Team Providers Care Support Representative Name Role Phone Fouzia Wetzelfer Primary Care Provider Unava ilable Encounter Details Date Type Department Care Team (Late st Contact Info) Description 10/03/2023 Documentation Only [facility] [address] [place] [phone] Srinivas Agrawal MD [address] [place] [address] [place] [address] Social History Tobacco Use Types [...] [facility] V[facility] Access [address] [place] [address] 03/08/2025 12:30 PM EST Scheduled Only [facility] Access [address] [place] [phone] documented as of this encounter Visit Diagnoses Not on filedocumented in this encounter Care Teams Support Representative Relationship Specialty Start Date End Date Marita Wetzel DO [address] [place] [address] PCP - General Family Medicine 11/14/22 documented as of this encounter
--- OUTSIDE RECORDS SUMMARY | 2025-01-06 15:34 | XMS_ITS | Encounter Summary ---
Author Organization [facility] Address [address] [place] [address] Phone Care Team Providers Care Pipe Assembly Worker Name Role Phone Marita Wetzel DO Primary Care Provider Unava ilable Encounter Details Date Type Department Care Team (Late st Contact Info) Description 12/31/2022 Documentation Only [facility] Of [address] [place] [phone] Candace Adam PA [address] [place] [address] [place] [phone] Social History Tobacco Use Types Packs/Day Years [...] Support [facility] V[facility] Access [address] [place] [phone] 03/08/2025 12:30 PM EST Scheduled Only [facility] Access [address] [place] [phone] documented as of this encounter Visit Diagnoses Not on filedocumented in this encounter Care Teams Pipe Assembly Worker Relationship Specialty Start Date End Date Marita Wetzel DO [address] [place] [address] PCP - General Family Medicine 11/14/22 documented as of this encounter
--- OUTSIDE RECORDS SUMMARY | 2025-01-06 15:34 | XMS_ITS | Encounter Summary ---
Author Organization [facility] Address [address] [place] [address] Phone Care Team Providers Care Physical Therapist Clinic Director Name Role Phone Marita Wetzel DO Primary Care Provider Unava ilable Encounter Details Date Type Department Care Team (Late st Contact Info) Description 05/01/2023 Documentation Only [facility] Of [address] [place] [phone] [place], [place] [address] [place] [phone] Social History Tobacco Use Types Packs/Day Years [...] [facility] [address] [place] [phone] 03/08/2025 12:30 PM EST Scheduled Only [facility] [address] [place] [phone] Scheduled Orders Name Type Priority Associated Diagnoses [...] Primary documented in this encounter Care Teams Physical Therapist Clinic Director Relationship Specialty Start Date End Date Marita Wetzel DO [address] [place] [address] PCP - General Family Medicine 11/14/22 documented as of this encounter
--- OUTSIDE RECORDS SUMMARY | 2025-01-06 15:34 | XMS_ITS | Encounter Summary ---
Author Organization [facility] Address [address] [place] [address] Phone Care Team Providers Care Railroad Car Cleaner Name Role Phone Marita Wetzel DO Primary Care Provider Unava ilable Encounter Details Date Type Department Care Team (Late st Contact Info) Description 10/06/2023 Documentation Only [facility] Of [address] [place] [phone] [place], [place], [place] [address] [place] [phone] Social History Tobacco Use Types Packs/Day Years [...] Support [facility] [address] [place] [phone] 03/08/2025 12:30 PM EST Scheduled Only [facility] [address] [place] [phone] documented as of this encounter Visit Diagnoses Not on filedocumented in this encounter Care Teams Railroad Car Cleaner Relationship Specialty Start Date End Date Marita Wetzel DO [address] [place] [address] PCP - General Family Medicine 11/14/22 documented as of this encounter
--- OUTSIDE RECORDS SUMMARY | 2025-01-06 15:34 | XMS_ITS | Encounter Summary ---
Author Organization [facility], Address [address] [place] [address] Phone Care Team Providers Care Radio Television Announcer Name Role Phone Marita Wetzel DO Primary Care Provider Unava ilable Encounter Details Date Type Department Care Team (Late st Contact Info) Description 04/02/2023 Documentation Only [facility] [place] [phone] Bernardo Doty MD [address] [place] [address] Social History Tobacco Use Types [...] Support [facility] Center [address] [facility] [address] [facility] [place] [address] 03/08/2025 12:30 PM EST Scheduled Only [facility] [address] [facility] [address] [facility] [place] [phone] documented as of this encounter Visit Diagnoses Not on filedocumented in this encounter Care Teams Radio Television Announcer Relationship Specialty Start Date End Date Marita Wetzel DO [address] [place] [address] PCP - General Family Medicine 11/14/22 documented as of this encounter
--- OUTSIDE RECORDS SUMMARY | 2025-01-06 15:35 | XMS_ITS | Encounter Summary ---
Author Organization [facility] Address [address] [place] [address] Care Team Providers Care Bottle Capping Machine Operator Name Role Phone Marita Wetzel Primary Care Provider +1- [phone] Encounter Details Date Type Department Care Team (Late st Contact Info) Description 04/30/2024 Lab Requisition [facility] - Main Lab [address] [place] [phone] Marily Gordillo MD [address] [place] [phone] Anemia, unspecified; Chronic embolism and thrombosis of [...] LAB CHEMISTRY METHOD 05/03/2024 10:59 AM EST [facility] Blood Venous blood specimen / Unknown Venipuncture / Unknown 05/03/2024 6:09 AM EST 05/03/2024 9:29 AM EST Marily Gordillo MD LAB BLOOD ORDERABLES Final Resul t Performing Organization Address [facility]/ZIP Co de Phone Number [facility] [address] [place] [address], [place] [phone] * (ABNORMAL) Ferritin (05/03/2024 6:09 AM EST) Ferritin 2,737(H) 8 - 252 ng/mL LAB CHEMISTRY METHOD 05/03/2024 10:59 AM EST [facility] Blood Venous blood specimen / Unknown Venipuncture / Unknown 05/03/2024 6:09 AM EST 05/03/2024 9:29 AM EST us Marily Gordillo MD LAB BLOOD ORDERABLES Final Resul t Performing Organization Address City/[facility] Hospital/ZIP Co de Phone Number [facility] [address] [place] [address], [place] [phone] documented in this encounter Visit Diagnoses Diagnosis Anemia, unspecified Chronic embolism and thrombosis of unspecified vein Acute kidney failure, unspecified (CMS/HCC V24) Acute kidney failure, unspecified documented in this encounter Care Teams Bottle Capping Machine Operator Relationship Specialty Start Date End Date Marita Wetzel DO [address] [place] [address] PCP - General 01/09/23 documented as of this encounter
--- OUTSIDE RECORDS SUMMARY | 2025-01-06 15:35 | XMS_ITS | Encounter Summary ---
Author Organization [facility] Address [address] [place] [address] Care Team Providers Care Iv Rn Name Role Phone Marita Wetzel Primary Care Provider +1- [phone] Encounter Details Date Type Department Care Team (Late st Contact Info) Description 04/23/2024 Lab Requisition [facility] - Main Lab [address] [place] [phone] Marily Gordillo MD [address] [place] [address] Chronic embolism and thrombosis of [...] LAB CHEMISTRY METHOD 04/26/2024 9:11 AM EST [facility] Potassium 3.4(L) 3.5 - 5.5 mmol/L LAB CHEMISTRY METHOD 04/26/2024 9:11 AM EST [facility] Chloride 109 96 - 110 mmol/L LAB CHEMISTRY METHOD 04/26/2024 9:11 AM [facility] CO2 27 21 - 32 mmol/L LAB CHEMISTRY METHOD 04/26/2024 9:11 AM [facility] Anion Gap 7 3 - 11 LAB CHEMISTRY METHOD 04/26/2024 9:11 AM [facility] Glucose 80 70 - 100 mg/dL LAB CHEMISTRY METHOD 04/26/2024 9:11 AM [facility] BUN 29(H) 5 - 25 mg/dL LAB CHEMISTRY METHOD 04/26/2024 9:11 AM [facility] Creatinine 3.36(H) 0.50 - 1.10 mg/dL LAB CHEMISTRY METHOD 04/26/2024 9:11 AM [facility] eGFR 15(L) >=60 mL/min/1. 73m2 LAB CHEMISTRY METHOD 04/26/2024 9:11 AM [facility] Comment:Calculation based on the Chronic Kidney Disease Epidemiology Collaboration (CKD-EPI) equation refit without adjustment for race. BUN/Creatinine Ratio 8.6 LAB CHEMISTRY METHOD 04/26/2024 9:11 AM [facility] Albumin 2.1(L) 3.2 - 5.0 g/dL LAB CHEMISTRY METHOD 04/26/2024 9:11 AM [facility] Calcium 8.7 8.5 - 10.5 mg/dL LAB CHEMISTRY METHOD 04/26/2024 9:11 AM [facility] Phosphorus 2.5 2.5 - 4.5 mg/dL LAB CHEMISTRY METHOD 04/26/2024 9:11 AM [facility] Blood Venous blood specimen / Unknown Venipuncture / Unknown 04/26/2024 6:18 AM EST 04/26/2024 8:28 AM EST Marily Gordillo MD LAB BLOOD ORDERABLES Final Resul t [facility] [address] [place] [address], documented in this encounter Visit Diagnoses Diagnosis Chronic embolism and thrombosis of unspecified vein Acute kidney failure, unspecified (CMS/HCC V24) Acute kidney failure, unspecified documented in this encounter Care Teams Iv Rn Relationship Specialty Start Date End Date Marita Wetzel DO [address] [place] [address] PCP - General 01/09/23 documented as of this encounter
--- OUTSIDE RECORDS SUMMARY | 2025-01-06 15:35 | XMS_ITS | Encounter Summary ---
Author Organization [facility] Address [address] [place] [address] Phone Care Team Providers Care Petroleum Products Sales Representative Name Role Phone Marita Wetzel DO Primary Care Provider Unava ilable Encounter Details Date Type Department Care Team (Late st Contact Info) Description 07/04/2023 Documentation Only [facility] Of [address] [place] [phone] Pauline Aguayo [address] [place] [phone] Social History Tobacco Use Types Packs/Day Years [...] Support [facility] Center [address] [phone] 03/08/2025 12:30 PM EST Scheduled Only [facility] [address] [phone] documented as of this encounter Visit Diagnoses Not on filedocumented in this encounter Care Teams Petroleum Products Sales Representative Relationship Specialty Start Date End Date Marita Wetzel DO [address] [place] [address] PCP - General Family Medicine 11/14/22 documented as of this encounter
--- OUTSIDE RECORDS SUMMARY | 2025-01-06 15:35 | XMS_ITS | Encounter Summary ---
Author Organization [facility] Address [address] [place] [address] Phone Care Team Providers Care Office Executive Name Role Phone Marita Wetzel DO Primary Care Provider Unava ilable Encounter Details Date Type Department Care Team (Late st Contact Info) Description 01/01/2024 Documentation Only [facility] Of [address] [place] [phone] [place], [place], [place] [address] [place] [phone] Social History Tobacco Use Types Packs/Day Years [...] Support [facility] Center [address] [place] [phone] 03/08/2025 12:30 PM EST Scheduled Only [facility] Access [place] [address] [place] [phone] documented as of this encounter Visit Diagnoses Not on filedocumented in this encounter Care Teams Office Executive Relationship Specialty Start Date End Date Marita Wetzel DO [address] [place] [address] PCP - General Family Medicine 11/14/22 documented as of this encounter
--- OUTSIDE RECORDS SUMMARY | 2025-01-06 15:35 | XMS_ITS | Encounter Summary ---
Author Organization [facility] Address [address] [place] [address] Care Team Providers Care Cloth Shearer Name Role Phone Marita Wetzel DO Primary Care Provider +1- [phone] Encounter Details Date Type Department Care Team (Late st Contact Info) Description 05/15/[address] [facility] - Main Lab [address] [facility] [place] [phone] Marily Gordillo MD [address] [place] [phone] Chronic embolism and thrombosis of unspecified vein; [...] unspecified documented in this encounter Care Teams Cloth Shearer Relationship Specialty Start Date End Date Marita Wetzel DO [address] [place], [place] PCP - General 01/09/23 documented as of this encounter
--- OUTSIDE RECORDS SUMMARY | 2025-01-06 15:35 | XMS_ITS | Encounter Summary ---
Author Organization [facility] Address [address] [place] [address] Care Team Providers Care Body Trimmer Name Role Phone Marita Wetzel Primary Care Provider +1- [phone] Encounter Details Date Type Department Care Team (Late st Contact Info) Description 04/20/2024 Lab Requisition [facility] - Main Lab [address] [place] [phone] Marily Gordillo MD [address] [place] [address] Chronic kidney disease, unspecified; Anemia, [...] mmol/L LAB CHEMISTRY METHOD 04/22/2024 11:50 AM [facility] Chloride 112(H) 96 - 110 mmol/L LAB CHEMISTRY METHOD 04/22/2024 11:50 AM [facility] CO2 23 21 - 32 mmol/L LAB CHEMISTRY METHOD 04/22/2024 11:50 AM [facility] Anion Gap 8 3 - 11 LAB CHEMISTRY METHOD 04/22/2024 11:50 AM [facility] Glucose 135(H) 70 - 100 mg/dL LAB CHEMISTRY METHOD 04/22/2024 11:50 AM [facility] BUN 43(H) 5 - 25 mg/dL LAB CHEMISTRY METHOD 04/22/2024 11:50 AM [facility] Creatinine 3.79(H) 0.50 - 1.10 mg/dL LAB CHEMISTRY METHOD 04/22/2024 11:50 AM [facility] eGFR 13(L) >=60 mL/min/1. 73m2 LAB CHEMISTRY METHOD 04/22/2024 11:50 AM [facility] Comment:Calculation based on the Chronic Kidney Disease Epidemiology Collaboration (CKD-EPI) equation refit without adjustment for race. BUN/Creatinine Ratio 11.3 LAB CHEMISTRY METHOD 04/22/2024 11:50 AM [facility] Calcium 8.6 8.5 - 10.5 mg/dL LAB CHEMISTRY METHOD 04/22/2024 11:50 AM [facility] AST (SGOT) 9(L) 10 - 42 unit/L LAB CHEMISTRY METHOD 04/22/2024 11:50 AM [facility] ALT (SGPT) 9(L) 10 - 60 unit/L LAB CHEMISTRY METHOD 04/22/2024 11:50 AM [facility] Alkaline Phosphatase 59 42 - 121 unit/L LAB CHEMISTRY METHOD 04/22/2024 11:50 AM [facility] Total Protein 5.8(L) 6.0 - 8.0 g/dL LAB CHEMISTRY METHOD 04/22/2024 11:50 AM [facility] Albumin 2.0(L) 3.2 - 5.0 g/dL LAB CHEMISTRY METHOD 04/22/2024 11:50 AM [facility] Total Bilirubin 0.3 0.0 - 1.4 mg/dL LAB CHEMISTRY METHOD 04/22/2024 11:50 AM [facility] Blood Venous blood specimen / Unknown Venipuncture / Unknown 04/22/2024 7:09 AM EST 04/22/2024 9:42 AM EST Marily Gordillo MD LAB BLOOD ORDERABLES Final Resul t [facility] [address] [place] [address], * (ABNORMAL) Complete blood count (04/22/2024 7:09 AM EST) WBC 8.2 4.8 - 10.8 K/mcL LAB HEMETOLOGY METHOD 04/22/2024 10:44 AM [facility] RBC 2.80(L) 3.80 - 4.80 [facility] LAB HEMETOLOGY METHOD 04/22/2024 10:44 AM [facility] Hemoglobin 7.8(L) 11.5 - 16.0 g/dL LAB HEMETOLOGY METHOD 04/22/2024 10:44 AM [facility] Hematocrit 27.7(L) 35.0 - 47.0 % LAB HEMETOLOGY METHOD 04/22/2024 10:44 AM [facility] MCV 97.5 79.0 - 98.0 FL LAB HEMETOLOGY METHOD 04/22/2024 10:44 AM [facility] MCH 27.5 27.0 - 32.0 pcg LAB HEMETOLOGY METHOD 04/22/2024 10:44 AM [facility] MCHC 28.2(L) 32.0 - 37.0 g/dL LAB HEMETOLOGY METHOD 04/22/2024 10:44 AM EST [facility] RDW 16.5(H) 11.0 - 15.0 % LAB HEMETOLOGY METHOD 04/22/2024 10:44 AM [facility] Platelets 189 130 - 400 K/mcL LAB HEMETOLOGY METHOD 04/22/2024 10:44 AM [facility] MPV 10.7 7.0 - 11.0 FL LAB HEMETOLOGY METHOD 04/22/2024 10:44 AM [facility] NRBC 0.0 <1.0 % LAB HEMETOLOGY METHOD 04/22/2024 10:44 AM [facility] NRBC Absolute 0.00 <0.10 K/mcL LAB HEMETOLOGY METHOD 04/22/2024 10:44 AM [facility] Blood Venous blood specimen / Unknown Venipuncture / Unknown 04/22/2024 7:09 AM EST 04/22/2024 9:43 AM EST us Marily Gordillo MD LAB BLOOD ORDERABLES Final Resul t [facility] [address] [place] [address], documented in this encounter Visit Diagnoses Diagnosis Chronic kidney disease, unspecified Anemia, unspecified documented in this encounter Care Teams Body Trimmer Relationship Specialty Start Date End Date Marita Wetzel DO [address] [place] [address] PCP - General 01/09/23 documented as of this encounter
--- OUTSIDE RECORDS SUMMARY | 2025-01-06 15:35 | XMS_ITS | Encounter Summary ---
Author Organization [facility] Address [address] [place] [address] Care Team Providers Care Concrete Journeyman Name Role Phone Marita Wetzel DO Primary Care Provider +1- [phone] Encounter Details Date Type Department Care Team (Late st Contact Info) Description 04/29/2024 Lab Requisition [facility] - Main Lab [address] [facility] [place] [phone] Marily Gordillo MD [address] [place] [phone] Chronic embolism and thrombosis of unspecified vein; [...] documented in this encounter Care Teams Concrete Journeyman Relationship Specialty Start Date End Date Marita Wetzel DO [address] [place], [place] PCP - General 01/09/23 documented as of this encounter
--- OUTSIDE RECORDS SUMMARY | 2025-01-06 15:35 | XMS_ITS | Encounter Summary ---
Author Organization [facility] Address [address] [place] [address] Care Team Providers Care Financial Reporting Director Name Role Phone Marita Wetzel Primary Care Provider +1- [phone] Encounter Details Date Type Department Care Team (Late st Contact Info) Description 05/07/2024 Lab Requisition [facility] - Main Lab [address] [place] [phone] Marily Gordillo MD [address] [place] [address] Chronic embolism and thrombosis of [...] LAB CHEMISTRY METHOD 05/10/2024 11:45 AM [facility] Potassium 3.8 3.5 - 5.5 [...] 05/10/2024 11:45 AM [facility] Phosphorus 2.1(L) 2.5 - 4.5 mg/dL LAB CHEMISTRY METHOD 05/10/2024 11:45 AM [facility] Blood Venous blood specimen / Unknown Venipuncture / Unknown 05/10/2024 5:50 AM EST 05/10/2024 9:58 AM EST Marily Gordillo MD LAB BLOOD ORDERABLES Final Resul t Performing Organization Address City/[facility]/ZIP Co de Phone Number [facility] [address] [place] [address], [place] [phone] * Tacrolimus level (05/10/2024 5:50 AM EST) [...] for research. Test performed at [facility], [address] , [place], [place] [id number] Ashtyn Leigh MD, PhD - Special Needs Bus Driver Blood Venous blood specimen / Unknown Venipuncture / Unknown 05/10/2024 5:50 AM EST 05/10/2024 9:58 AM EST Marily Gordillo MD LAB BLOOD ORDERABLES Final Resul t [facility] [address] [place] [address] documented in this encounter Visit Diagnoses Diagnosis Chronic embolism and thrombosis of unspecified vein Acute kidney failure, unspecified (CMS/FORMERLY [facility] V24) Acute kidney failure, unspecified documented in this encounter Care Teams Financial Reporting Director Relationship Specialty Start Date End Date Marita Wetzel DO [address] [place] [address] PCP - General 01/09/23 documented as of this encounter
--- OUTSIDE RECORDS SUMMARY | 2025-01-06 15:35 | XMS_ITS | Encounter Summary ---
Author Organization [facility] Address [address] [place] [address] Care Team Providers Care Beekeeper Farmer Name Role Phone Marita Wetzel DO Primary Care Provider +1- [phone] Encounter Details Date Type Department Care Team (Late st Contact Info) Description 04/10/2024 Lab Requisition [facility] - Main Lab [address] [facility] [employer] [phone] Marily Gordillo MD [address] [place] [phone] Chronic embolism and thrombosis of unspecified vein; [...] unspecified documented in this encounter Care Teams Beekeeper Farmer Relationship Specialty Start Date End Date Marita Wetzel DO [address] [place], [place] PCP - General 01/09/23 documented as of this encounter
--- OUTSIDE RECORDS SUMMARY | 2025-01-06 15:35 | XMS_ITS | Encounter Summary ---
Author Organization [facility] Address [address] [place] [address] Phone Care Team Providers Care Pipe Buffer Name Role Phone Marita Wetzel DO Primary Care Provider Unava ilable Encounter Details Date Type Department Care Team (Late st Contact Info) Description 07/29/2023 Documentation Only [facility] [address] [place] [phone] Pauline Agauyo [address] [place] [phone] Social History Tobacco Use Types Packs/Day Years [...] Support [facility] [address] [place] [phone] 03/08/2025 12:30 PM EST Scheduled Only [facility] [address] [place] [phone] documented as of this encounter Visit Diagnoses Not on filedocumented in this encounter Care Teams Pipe Buffer Relationship Specialty Start Date End Date Marita Wetzel DO [address] [place] [address] PCP - General Family Medicine 11/14/22 documented as of this encounter
--- OUTSIDE RECORDS SUMMARY | 2025-01-06 15:35 | XMS_ITS | Encounter Summary ---
Author Organization [facility] Address [address] [place] [address] Care Team Providers Care Corrective Therapy Aide Teacher Name Role Phone Marita Wetzel DO Primary Care Provider +1- [phone] Encounter Details Date Type Department Care Team (Late st Contact Info) Description 04/28/2024 Lab Requisition [facility] - Main Lab [address] [facility] [employer] [place] [phone] Marily Gordillo MD [address] [place] [address] Chronic kidney disease, unspecified; Anemia, [...] unspecified documented in this encounter Care Teams Corrective Therapy Aide Teacher Relationship Specialty Start Date End Date Marita Wetzel DO [address] [place] [address] PCP - General 01/09/23 documented as of this encounter
--- OUTSIDE RECORDS SUMMARY | 2025-01-06 15:35 | XMS_ITS | Encounter Summary ---
Author Organization [facility] Address [address] [place] [address] Care Team Providers Care Pot Builder Name Role Phone Marita Wetzel Primary Care Provider +1- [phone] Encounter Details Date Type Department Care Team (Late st Contact Info) Description 04/30/2024 Lab Requisition [facility] - Main Lab [address] [place] [phone] Marily Gordillo MD [address] [place] [address] Chronic embolism and thrombosis of [...] LAB CHEMISTRY METHOD 05/03/2024 10:39 AM EST [facility] Potassium 5.1 3.5 - 5.5 [...] [facility] Comment:Calculation based on the Chronic [...] [facility]/ZIP Co de Phone Number [facility] [address] [place] [address], * Tacrolimus level (05/03/2024 6:09 AM EST) [...] investigational or for research. Test performed at [facility], [address] , [place] [address] Ashtyn Leigh MD, PhD - Cribber Blood Venous blood specimen / Unknown Venipuncture / Unknown 05/03/2024 6:09 AM EST 05/03/2024 9:28 AM EST Marily Gordillo MD LAB BLOOD ORDERABLES Final Resul t [facility] [address] [place] [address] documented in this encounter Visit Diagnoses Diagnosis Chronic embolism and thrombosis of unspecified vein Acute kidney failure, unspecified (CMS/HCC V24) Acute kidney failure, unspecified documented in this encounter Care Teams Pot Builder Relationship Specialty Start Date End Date Marita Wetzel DO [address] [place] [address] PCP - General 01/09/23 documented as of this encounter
--- OUTSIDE RECORDS SUMMARY | 2025-01-06 15:35 | XMS_ITS | Encounter Summary ---
Author Organization [facility] Address [address] [place] [address] Phone Care Team Providers Care Chief Optometry Service Name Role Phone Marita Wetzel DO Primary Care Provider Unava ilable Encounter Details Date Type Department Care Team (Late st Contact Info) Description 12/06/2022 Documentation Only [facility] [address] [place] [phone] [place], [place] [address] [place] [phone] Social History Tobacco Use Types Packs/Day Years [...] [facility] [employer] [facility] [address] [place] [phone] 03/08/2025 12:30 PM EST Scheduled Only [facility] [address] [place] [phone] documented as of this encounter Visit Diagnoses Not on filedocumented in this encounter Care Teams Chief Optometry Service Relationship Specialty Start Date End Date Marita Wetzel DO [address] [place] [address] PCP - General Family Medicine 11/14/22 documented as of this encounter
--- OUTSIDE RECORDS SUMMARY | 2025-01-06 15:35 | XMS_ITS | Encounter Summary ---
Author Organization [facility] Address [address] [place] [address] Care Team Providers Care Violent Crimes Detective Name Role Phone Marita Wetzel DO Primary Care Provider +1- [phone] Encounter Details Date Type Department Care Team (Late st Contact Info) Description 05/12/2024 Lab Requisition [facility] - Main Lab [address] [facility] [place] [place] [phone] Marily Gordillo MD [address] [place] [address] Chronic kidney disease, unspecified; Anemia, [...] unspecified documented in this encounter Care Teams Violent Crimes Detective Relationship Specialty Start Date End Date Marita Wetzel DO [address] [place] [address] PCP - General 01/09/23 documented as of this encounter
--- OUTSIDE RECORDS SUMMARY | 2025-01-06 15:35 | XMS_ITS | Encounter Summary ---
Author Organization [facility] Address [address] [place] [address] Care Team Providers Care Department Manager Name Role Phone Marita Wetzel DO Primary Care Provider +1- [phone] Encounter Details Date Type Department Care Team (Late st Contact Info) Description 04/28/2024 Lab Requisition [facility] - Main Lab [address] [facility] [place] [phone] Marily Gordillo MD [address] [place] [address] Chronic kidney disease, unspecified; Anemia, [...] unspecified documented in this encounter Care Teams Department Manager Relationship Specialty Start Date End Date Marita Wetzel DO [address] [place] [address] PCP - General 01/09/23 documented as of this encounter
--- OUTSIDE RECORDS SUMMARY | 2025-01-06 15:35 | XMS_ITS | Clinical Summary ---
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 23818 mL 12 02/10/20 24 Active predniSONE 5 [...] Encounters Date Type Department Care Team Description 01/05/2025 Treatment [facility] [address] [place] [address] Bernardo Doty MD End stage renal disease; Dependence on renal dialysis 01/03/2025 Treatment [facility] [address] [place] [address] Bernardo Doty MD End stage renal disease; Dependence on renal dialysis 12/29/2024 9:30 AM EDT Clinical Support [facility], - [facility] Center [address] [place] [address] Hazel Zepeda Encounter for fitting and adjustment of vascular catheter [Z45.2] (Primary Dx); Stage 5 chronic kidney disease (HCC) [N18.5] 12/29/2024 Orders Only [facility] [address] [place] [address] Srinivas Agrawal MD 12/27/2024 Treatment [facility], [address] [place] [address] Bernardo Doty MD End stage renal disease; Dependence on renal dialysis 12/22/2024 Telephone [facility], - [facility] Center [address] [place] [address] Lakesha Sandoval 12/17/2024 Orders Only [facility] [address] [address] Srinivas Agrawal MD 12/13/2024 Orders Only [facility] [address] [address] Bernardo Doty MD 12/10/2024 Orders Only [facility] [address] [address] Bernrado Doty MD 12/08/2024 Treatment [facility], [address] [place] [phone] Bernardo Doty MD End stage renal disease; Dependence on renal dialysis 12/08/2024 Orders Only [facility] [address] [address] Srinivas Agrawal MD 12/06/2024 Orders Only [facility] [address] [address] Bernardo Doty MD 12/06/2024 Treatment [facility], [address] [place] [address] Bernardo Doty MD End stage renal disease; Dependence on renal dialysis 12/01/2024 Orders Only [facility] [address] [address] Srinivas Agrawal MD 11/24/2024 Orders Only [facility] [address] [address] Srinivas Agrawal MD 11/22/2024 Treatment [facility], [address] [place] [address] Bernardo Doty MD End stage renal disease; Dependence on renal dialysis 11/19/2024 Treatment [facility], [address] [place] [address] Bernardo Doty MD End stage renal disease; Dependence on renal dialysis 11/17/2024 Orders Only [facility] [address] [address] Srinivas Agrawal MD 11/15/2024 Treatment [facility], [address] [place] [phone] Bernardo Doty MD End stage renal disease; Dependence on renal dialysis 11/11/2024 10:30 AM EDT Clinical Support [facility], - V[facility] Access Center [facility] [place] [address] Db Neumann MD Encounter for fitting and adjustment of vascular catheter [Z45.2] (Primary Dx); Chronic kidney disease, Stage V (HCC) [N18.5] 11/10/2024 Orders Only [facility] [address] [address] Srinivas Agrawal MD 11/08/2024 Treatment [facility], [address] [place] [phone] Bernardo Doty MD End stage renal disease; Dependence on renal dialysis 11/05/2024 Orders Only [facility] [address] [address] Bernardo Doty MD 11/03/2024 Orders Only [facility] [address] [address] Srinivas Agrawal MD 11/01/2024 Treatment [facility], [address] [place] [phone] Bernardo Doty MD End stage renal disease; Dependence on renal dialysis 11/01/2024 Orders Only [facility] [address] [address] Bernardo Doty MD 10/27/2024 Orders Only [facility] [address] [address] Srinivas Agrawal MD 10/25/2024 Orders Only [facility] [address] [address] Bernardo Doty MD 10/25/2024 Treatment [facility], [address] [address] Bernardo Doty MD End stage renal disease; Dependence on renal dialysis 10/20/2024 Orders Only [facility] [address] [address] Srinivas Agrawal MD 10/18/2024 Orders Only [facility] [address] [address] Srinivas Agrawal MD 10/13/2024 9:00 AM EDT Clinical Support [facility] V[facility] Center [address] [place] [address] [place] [address] Lakesha Sandoval Encounter for fitting and adjustment of vascular catheter [Z45.2] (Primary Dx); End stage renal disease (HCC) [N18.6] 10/12/2024 Telephone [facility] V[facility] Access Center [address] [place] [address] [place] [address] Stephany Stevens 10/11/2024 Orders Only [facility] [address] [address] Srinivas Agarwal MD 10/06/2024 Orders Only [facility] [address] [address] Srinivas Agrawal MD from Last 3 Months Immunizations Immunization Administration [...] Sign Reading Time Taken Comments Blood Pressure 143/50 12/29/2024 11:21 AM EDT Pulse 66 12/29/2024 11:21 AM EDT Temperature 36.3 C (97.4 F) 02/04/2024 9:55 AM EDT Respiratory Rate - - Oxygen Saturation 100% 12/29/2024 11:21 AM EDT Inhaled Oxygen Concentration - - Weight 56 kg (123 lb 6.4 oz) 02/04/2024 12:02 PM EDT Height 167.6 cm (5' 6 ) 02/04/2024 12:02 PM EDT Body Mass Index 19.92 02/04/2024 12:02 PM EDT Plan of Treatment Upcoming Encounters Date Type Department Care Team (Late st Contact Info) Description 01/26/2025 9:30 AM EDT Clinical Support [facility], - [facility] Center [address] [place] [address] [place] [address] 03/08/2025 12:30 PM EST Scheduled Only [facility] Vascular Access Center [address] [place] [address] [place] [address] Health Maintenance Due Date Last Done Comments [...] 02/14/2021, Additional history exists Diabetes: Hemoglobin A1C 03/09/20252 025, 10/06/2024, 07/07/2024, Additional history exists Pneumococcal Vaccine: 50+ Ye ars (4 of 4 - PCV20 or PCV21) 05/03/2026 05/03/2021, 01/05/2020, 08/13/2010 Pneumococcal Vaccine: Peds ( 0 to 5 Years) and At-Risk Patients (6 to 49 Years) Discontinued 05/03/2021, 01/05/2020, 08/13/2010 Procedures Procedure Name Priority Date/Time Associated Diagnosis Comments HEMATOLOGY Routine 12/29/2024 S[facility]RA IVET LAB RESULTS Routine 12/22/2024 HD KINETICS Routine 12/22/2024 CHEMISTRY Routine 12/22/2024 POST CHEMISTRY Routine 12/22/2024 HEMATOLOGY Routine 12/22/2024 HEMATOLOGY Routine 12/17/2024 SPECTRA IVET LAB RESULTS Routine 12/13/2024 HD KINETICS Routine 12/13/2024 POST CHEMISTRY Routine [...] CHEMISTRY Routine 10/06/2024 SPECIAL CHEMISTRY Routine 10/06/2024 from Last 3 Months Results * (ABNORMAL) HEMATOLOGY (12/29/2024) Only the most recent of13 resultswithin the time period is included. Hemoglobin 9.8(L) 12.0 - 16.0 g/dL [facility] Hemoglobin x 3 29.4(L) 36.0 - 48.0 % [facility] 12/29/2024 12/30/2024 9:3 2 AM EDT Narrative [facility] - 12/30/2024 Unless otherwise specified, test(s) performed at: [facility], [address] [place] [address] VICE PRESIDENT OF HUMAN RESOURCES: Dwayne Fuentes M.D. For any questions, please call customer service at FREQUENCY:OTHER Resulting Agency Comment Specimen source: Blood Srinivas Agrawal MD LAB BLOOD ORDERABLES Final Result [facility] See order comments or contact performing lab Unknown, [place] * HD KINETICS (12/22/2024) Only the most recent of7 resultswithin the time period is included. % Urea Reduction 73 65 - 80 % [facility] 12/22/2024 12/23/2024 1:2 8 PM EDT Narrative [facility] - 12/24/2024 Unless otherwise specified, test(s) performed at: [facility], [address] [place], [place] [id number] VICE PRESIDENT OF HUMAN RESOURCES: Dwayne Fuentes M.D. For any questions, please call customer service at FREQUENCY:OTHER Resulting Agency Comment Specimen source: Plasma Srinivas Agrawal MD LAB BLOOD ORDERABLES Final Result Performing Organization Address [facility] de Phone Number [facility] See order comments or contact performing lab Unknown, [place] * POST CHEMISTRY (12/22/2024) Only the most recent of7 resultswithin the time period is included. BUN Post Dialysis 11 6 - 19 mg/dL [facility] 12/22/2024 12/23/2024 1:2 8 PM EDT Narrative [facility] - 12/23/2024 Unless otherwise specified, test(s) performed at: [place] [id number] VICE PRESIDENT OF HUMAN RESOURCES: Dwayne Fuentes M.D. For any questions, please call customer service at FREQUENCY:OTHER Resulting Agency Comment Specimen source: Plasma Result [facility] Srinivas Agrawal MD LAB BLOOD ORDERABLES Final Result Performing Organization Address [facility] de Phone Number [facility] See order comments or contact performing lab Unknown, [place] * (ABNORMAL) Spectrae Chemistry (12/22/2024) Only the most recent of17 resultswithin the time period is included. BUN 40(H) 6 - 19 mg/dL [facility] 12/22/2024 12/23/2024 9:4 0 AM EDT Narrative [facility] - 12/24/2024 Unless otherwise specified, test(s) performed at: [facility], [address] [place] [address] VICE PRESIDENT OF HUM[employer] RESOURCES: Dwayne Fuentes M.D. For any questions, please call customer service at FREQUENCY:OTHER Resulting Agency Comment Specimen source: Serum Srinivas Agrawal MD LAB BLOOD ORDERABLES Final Result Performing Organization Address [facility]/ZIP Co de Phone Number JasonDB Meas[facility] See order comments or contact performing lab Unknown, [place] * Spectra IVET Lab Results (12/22/2024) Only the most recent of7 resultswithin the time period is included. Pathologist [facility] nPCR_HD 0.78 [facility] eKt/V Gotch 1.35 Knowledg e Center eKt/V ([place]) 1.35 [facility] spKt/V Gotch 1.60 [facility] ge Center eKdrt/V 1.35 [facility] WSTDKT/V 2.5 [facility] PCR 52.24 [facility] spKt/V (Daugirdas II) 1.58 [facility] eNPCR 0.73 [facility] 12/22/2024 12/22/2024 [facility] [place] LAB BLOOD ORDERABLES Final Result Performing Organization Address [facility] de Phone Number [facility] Contact Performing lab Unknown, [place] * IMMUNO CHEMISTRY (12/08/2024) Only the most recent of3 resultswithin the time period is included. [facility] Hep B Surface Ag Negative Negative [facility] 12/08/2024 12/09/2024 8:2 1 AM EDT Narrative [facility] - 12/09/2024 Unless otherwise specified, test(s) performed at: [facility], [address] [place] [id number] VICE PRESIDENT OF HUMAN RESOURCES: Dwayne Fuentes M.D. For any questions, please call customer service at FREQUENCY:MONTHLY Resulting Agency Comment Specimen source: Serum Srinivas Agrawal MD LAB BLOOD ORDERABLES Final Result Performing Organization Address City/[facility] Co de Phone Number [facility] See order comments or contact performing lab Unknown, [place] * (ABNORMAL) SPECIAL CHEMISTRY (10/06/2024) Only the most recent of2 resultswithin the time period is included. [facility] Hemoglobin A1C 6.1(H) 4.8 - 5.9 % [facility] 10/06/2024 10/07/2024 11: 36 AM EDT Narrative [facility] - 10/08/2024 Unless otherwise specified, test(s) performed at: [facility], [address] [place] [address] VICE PRESIDENT OF HUMAN RESOURCES: Dwayne Fuentes M.D. For any questions, please call customer service at FREQUENCY:MONTHLY Resulting Agency Comment Specimen source: Blood Srinivas Agrawal MD LAB BLOOD BANK TEST ORDERA BLES Final Result [facility] See order comments or contact performing lab Unknown, [place] from Last 3 Months Insurance [facility] Medicare Medicare Care Teams Export Freight Clerk Relationship Specialty Start Date End Date Marita Wetzel DO [address] [place] [address] PCP - General Family Medicine 11/14/22
--- OUTSIDE RECORDS SUMMARY | 2025-01-06 15:35 | XMS_ITS | Encounter Summary ---
Author Organization [facility] Address [address] [place] [address] Phone Care Team Providers Care License Distributor Name Role Phone Marita Wetzel DO Primary Care Provider Unava ilable Encounter Details Date Type Department Care Team (Late st Contact Info) Description 12/09/2022 Documentation Only [facility] [address] [place] [phone] Candace Adam PA [address] [place] [address] [place] [phone] Social History Tobacco Use Types Packs/Day Years [...] [facility] Vascular Access [address] [place] [phone] 03/08/2025 12:30 PM EST Scheduled Only [facility] Vascular Access [address] [place] [address] documented as of this encounter Visit Diagnoses Not on filedocumented in this encounter Care Teams License Distributor Relationship Specialty Start Date End Date Marita Wetzel DO [address] [place] [address] PCP - General Family Medicine 11/14/22 documented as of this encounter
--- OUTSIDE RECORDS SUMMARY | 2025-01-06 15:35 | XMS_ITS | Encounter Summary ---
Author Organization [facility] Address [address] [place] [address] Care Team Providers Care Silo Operator Name Role Phone Marita Wetzel Primary Care Provider [phone] Encounter Details Date Type Department Care Team (Late st Contact Info) Description 04/17/2024 Lab Requisition [facility] - Main Lab [address] [facility] [place] [phone] Marily Gordillo MD [address] [place] [address] Chronic embolism and thrombosis of [...] - 20.0 ng/mL 04/22/2024 11:22 AM EST [facility] Comment: Additional Information: Toxic [...] and the performance characteristics determined by [facility]. This confirmation testing has not been cleared or approved by the FDA. The laboratory is regulated under CLIA as qualified to perform high-complexity testing. This test is used for patient testing purposes. It should not be regarded as investigational or for research. Test performed at [facility], [address], [place] [address] Ashtyn Leigh MD, PhD - Saddle And Side Wire Stitcher Blood Venous blood specimen / Unknown Venipuncture / Unknown 04/19/2024 6:21 AM EST 04/19/2024 8:33 AM EST us Marily Gordillo MD LAB BLOOD ORDERABLES Final Resul t [facility] [address] [place] [address] * (ABNORMAL) Renal function panel (04/19/2024 6:21 AM EST) Pathologist [facility] Sodium 144 133 - 145 mmol/L LAB CHEMISTRY METHOD 04/19/2024 9:42 AM EST [facility] Potassium 3.3(L) 3.5 - 5.5 mmol/L LAB CHEMISTRY METHOD 04/19/2024 9:42 AM EST [facility] Chloride 114(H) 96 - 110 mmol/L LAB CHEMISTRY METHOD 04/19/2024 9:42 AM EST [facility] CO2 22 [...] [facility] Comment:Calculation based on the Chronic Kidney Disease Epidemiology Collaboration (CKD-EPI) equation refit without adjustment for race. BUN/Creatinine Ratio 11.5 LAB CHEMISTRY METHOD 04/19/2024 9:[address] [facility] Albumin 2.0(L) 3.2 - 5.0 g/dL LAB CHEMISTRY METHOD 04/19/2024 9:[address] [facility] Calcium 8.5 8.5 - 10.5 mg/dL LAB CHEMISTRY METHOD 04/19/2024 9:[address] [facility] Phosphorus 2.6 2.5 - 4.5 mg/dL LAB CHEMISTRY METHOD 04/19/2024 9:[address] [facility] Blood Venous blood specimen / Unknown Venipuncture / Unknown 04/19/2024 6:21 AM EST 04/19/2024 8:33 AM EST us Marily Gordlilo MD LAB BLOOD ORDERABLES Final Resul t [facility] [address] [place] [address], * (ABNORMAL) Complete blood count (04/19/2024 6:21 AM EST) [facility] WBC 12.0(H) 4.8 - 10.8 K/mcL LAB [...] pcg LAB HEMETOLOGY METHOD 04/19/2024 9:[address] [facility] MCHC 27.8(L) 32.0 - 37.0 g/dL LAB HEMETOLOGY METHOD 04/19/2024 9:[address] [facility] RDW 16.6(H) 11.0 - 15.0 % LAB HEMETOLOGY METHOD 04/19/2024 9:[address] [facility] Platelets 230 130 - 400 K/mcL LAB HEMETOLOGY METHOD 04/19/2024 9:[address] [facility] MPV 10.9 7.0 - 11.0 FL LAB HEMETOLOGY METHOD 04/19/2024 9:[address] [facility] NRBC 0.0 <1.0 % LAB HEMETOLOGY METHOD 04/19/2024 9:[address] [facility] NRBC Absolute 0.00 <0.10 K/mcL LAB HEMETOLOGY METHOD 04/19/2024 9:26 AM EST [facility] Blood Venous blood specimen / Unknown Venipuncture / Unknown 04/19/2024 6:21 AM EST 04/19/2024 8:33 AM EST us Marily Gordillo MD LAB BLOOD ORDERABLES Final Resul t [facility] [address] [place] [address], documented in this encounter Visit Diagnoses Diagnosis Chronic embolism and thrombosis of unspecified vein Acute kidney failure, unspecified (CMS/HCC V24) Acute kidney failure, unspecified documented in this encounter Care Teams Silo Operator Relationship Specialty Start Date End Date Marita Wetzel DO [address] [place] [address] PCP - General 01/09/23 documented as of this encounter
--- OUTSIDE RECORDS SUMMARY | 2025-01-06 15:35 | XMS_ITS | Encounter Summary ---
Author Organization [facility] Address [address] [place] [address] Care Team Providers Care Cardiac Cath Lab Manager Name Role Phone Marita Wetzel Primary Care Provider +1- [phone] Encounter Details Date Type Department Care Team (Late st Contact Info) Description 04/17/2024 Lab Requisition [facility] - Main Lab [address] [facility] [place] [address] Catalina Burr MD [address] [place], [place] [id number] End stage renal disease (CMS/HCC V24, CMS/HCC [...] Test performed at [facility], [address] , [place] [address] Ashtyn Leigh MD, PhD - Ld Teacher Blood Venous blood specimen / Unknown Venipuncture / Unknown 04/17/2024 5:33 AM EST 04/17/2024 9:33 AM EST us Catalina Burr MD LAB BLOOD ORDERABLES Final Resul t [facility] [address] [place] [address] * (ABNORMAL) Reticulocyte count (04/17/2024 5:33 AM EST) Retic Ct Abs 0.050 0.030 - 0.090 M/mcL LAB HEMETOLOGY METHOD 04/17/2024 10:[address] [facility] Retic Ct Pct 1.8(H) 0.7 - 1.7 % LAB HEMETOLOGY METHOD 04/17/2024 10:[address] [facility] Immature Retic Fract 24.7(H) 2.3 - 15.9 % LAB HEMETOLOGY METHOD 04/17/2024 10:42 AM [facility] Reticulocyte Hemoglobin 28.3(L) >29.0 pcg LAB HEMETOLOGY METHOD 04/17/2024 10:42 AM [facility] Blood Venous blood specimen / Unknown Venipuncture / Unknown 04/17/2024 5:33 AM EST 04/17/2024 9:33 AM EST us Catalina Burr MD LAB BLOOD ORDERABLES Final Resul t [facility] [address] [place] [address], [place] [phone] * (ABNORMAL) Comprehensive metabolic panel (04/17/2024 5:33 AM EST) Sodium 146(H) 133 - 145 mmol/L LAB CHEMISTRY METHOD 04/17/2024 11:02 AM [facility] Potassium 3.4(L) 3.5 - 5.5 mmol/L LAB CHEMISTRY METHOD 04/17/2024 11:02 AM [facility] Chloride 116(H) 96 - 110 mmol/L LAB CHEMISTRY METHOD 04/17/2024 11:02 AM [facility] CO2 21 21 - 32 mmol/L LAB CHEMISTRY METHOD 04/17/2024 11:02 AM [facility] Anion Gap 9 3 - 11 LAB CHEMISTRY METHOD 04/17/2024 11:02 AM [facility] Glucose 61(L) 70 - 100 mg/dL LAB CHEMISTRY METHOD 04/17/2024 11:02 AM [facility] BUN 48(H) 5 - 25 mg/dL LAB CHEMISTRY METHOD 04/17/2024 11:02 AM [facility] Creatinine 3.71(H) 0.50 - 1.10 mg/dL LAB CHEMISTRY METHOD 04/17/2024 11:02 AM [facility] eGFR 13(L) >=60 mL/min/1. 73m2 LAB CHEMISTRY METHOD 04/17/2024 11:02 AM [facility] Comment:Calculation based on the Chronic Kidney Disease Epidemiology Collaboration (CKD-EPI) equation refit without adjustment for race. BUN/Creatinine Ratio 12.9 LAB CHEMISTRY METHOD 04/17/2024 11:02 AM [facility] Calcium 8.7 8.5 - 10.5 mg/dL LAB CHEMISTRY METHOD 04/17/2024 11:02 AM [facility] AST (SGOT) 8(L) 10 - 42 unit/L LAB CHEMISTRY METHOD 04/17/2024 11:02 AM [facility] ALT (SGPT) 9(L) 10 - 60 unit/L LAB CHEMISTRY METHOD 04/17/2024 11:02 AM [facility] Alkaline Phosphatase 61 42 - 121 unit/L LAB CHEMISTRY METHOD 04/17/2024 11:02 AM [facility] Total Protein 5.6(L) 6.0 - 8.0 g/dL LAB CHEMISTRY METHOD 04/17/2024 11:02 AM [facility] Albumin 2.0(L) 3.2 - 5.0 g/dL LAB CHEMISTRY METHOD 04/17/2024 11:02 AM [facility] Total Bilirubin 0.5 0.0 - 1.4 mg/dL LAB CHEMISTRY METHOD 04/17/2024 11:02 AM [facility] Blood Venous blood specimen / Unknown Venipuncture / Unknown 04/17/2024 5:33 AM EST 04/17/2024 9:33 AM EST us Catalina Burr MD LAB BLOOD ORDERABLES Final Resul t [facility] [address] [place] [address], * (ABNORMAL) Complete blood count (04/17/2024 5:33 AM EST) [facility] WBC 9.3 4.8 - 10.8 K/mcL LAB HEMETOLOGY METHOD 04/17/2024 10:42 AM [facility] RBC 3.10(L) 3.80 - 4.80 M/mcL LAB HEMETOLOGY METHOD 04/17/2024 10:42 AM [facility] Hemoglobin 8.3(L) 11.5 - 16.0 g/dL LAB HEMETOLOGY METHOD 04/17/2024 10:42 AM [facility] Hematocrit 30.3(L) 35.0 - 47.0 % LAB HEMETOLOGY METHOD 04/17/2024 10:42 AM [facility] MCV 98.1(H) 79.0 - 98.0 FL LAB HEMETOLOGY METHOD 04/17/2024 10:42 AM [facility] MCH 26.9(L) 27.0 - 32.0 pcg LAB HEMETOLOGY METHOD 04/17/2024 10:42 AM [facility] MCHC 27.4(L) 32.0 - 37.0 g/dL LAB HEMETOLOGY METHOD 04/17/2024 10:42 AM [facility] RDW 16.9(H) 11.0 - 15.0 % LAB HEMETOLOGY METHOD 04/17/2024 10:42 AM [facility] Platelets 206 130 - 400 K/mcL LAB HEMETOLOGY METHOD 04/17/2024 10:42 AM [facility] MPV 10.1 7.0 - 11.0 FL LAB HEMETOLOGY METHOD 04/17/2024 10:42 AM [facility] NRBC 0.0 <1.0 % LAB HEMETOLOGY METHOD 04/17/2024 10:[address] [facility] NRBC Absolute 0.00 <0.10 K/mcL LAB HEMETOLOGY METHOD 04/17/2024 10:[address] [facility] Blood Venous blood specimen / Unknown Venipuncture / Unknown 04/17/2024 5:33 AM EST 04/17/2024 9:33 AM EST us Catalina Burr MD LAB BLOOD ORDERABLES Final Resul t [facility] [address] [place] [address], documented in this encounter Visit Diagnoses Diagnosis End stage renal disease (CMS/HCC V24, CMS/HCC V28) End stage renal disease Anemia, unspecified documented in this encounter Care Teams Cardiac Cath Lab Manager Relationship Specialty Start Date End Date Marita Wetzel DO [address] [place] [address] PCP - General 01/09/23 documented as of this encounter
--- OUTSIDE RECORDS SUMMARY | 2025-01-06 15:35 | XMS_ITS | Encounter Summary ---
Author Organization [facility] Address [address] [place] [address] Care Team Providers Care Insurance Job Titles Name Role Phone Marita Wetzel DO Primary Care Provider +1- [phone] Encounter Details Date Type Department Care Team (Late st Contact Info) Description [address] [facility] - Main Lab [address] [facility] [employer] [place] [phone] Marily Gordillo MD [address] [place] [address] Chronic kidney disease, unspecified; Anemia, [...] unspecified documented in this encounter Care Teams Insurance Job Titles Relationship Specialty Start Date End Date Marita Wetzel DO [address] [place] [address] PCP - General 01/09/23 documented as of this encounter
--- OUTSIDE RECORDS SUMMARY | 2025-01-06 15:36 | XMS_ITS | Encounter Summary ---
Author Organization [facility] Address [address] [place] [address] Phone Care Team Providers Care Supervisor [employer] Name Role Phone Marita Wetzel DO Primary Care Provider Unava ilable Encounter Details Date Type Department Care Team (Late st Contact Info) Description 09/26/2022 Documentation Only [facility] [address] [place] [phone] Candace Adam PA [address] [place] [address] [place] [phone] Social History Tobacco Use Types Packs/Day Years [...] [facility] [address] [place] [phone] 03/08/2025 12:30 PM EST Scheduled Only [facility] Access [address] [place] [phone] documented as of this encounter Visit Diagnoses Not on filedocumented in this encounter Care Teams Supervisor [employer] Relationship Specialty Start Date End Date Marita Wetzel DO [address] [place] [address] PCP - General Family Medicine 11/14/22 documented as of this encounter
--- OUTSIDE RECORDS SUMMARY | 2025-01-06 15:36 | XMS_ITS | Encounter Summary ---
Author Organization [facility] Address [address] [place] [address] Care Team Providers Care Epic [employer] Specialists Name Role Phone Mary JaneMarita yousif Primary Care Provider +1- [phone] Encounter Details Date Type Department Care Team (Late st Contact Info) Description 03/19/2024 Lab Requisition [facility] - Main Lab [address] [facility] [place] [address] Catalina Burr MD [address] [place] [address] Chronic embolism and thrombosis of unspecified vein; [...] - 20.0 ng/mL 03/24/2024 1:11 PM EST [facility] Comment: Additional Information: Toxic Level > [...] the performance characteristics determined by [facility]. This confirmation testing has not been cleared or approved by the FDA. The laboratory is regulated under CLIA as qualified to perform high-complexity testing. This test is used for patient testing purposes. It should not be regarded as investigational or for research. Test performed at [facility], [address], [place], [place] [id number] Ashtyn Leigh MD, PhD - Galley Stripper Blood Venous blood specimen / Unknown Venipuncture / Unknown 03/22/2024 6:50 AM EST 03/22/2024 8:05 AM EST us Catalina Burr MD LAB BLOOD ORDERABLES Final Resul t [facility] [address] [place] [address] * (ABNORMAL) Renal function panel (03/22/2024 6:50 AM EST) Sodium 138 133 - 145 mmol/L LAB CHEMISTRY METHOD 03/22/2024 8:[address] [facility] Potassium 4.6 3.5 - 5.5 mmol/L LAB CHEMISTRY METHOD 03/22/2024 8:55 AM [facility] Chloride 107 96 - 110 mmol/L LAB CHEMISTRY METHOD 03/22/2024 8:55 AM [facility] CO2 20(L) 21 - 32 mmol/L LAB CHEMISTRY METHOD 03/22/2024 8:55 AM [facility] Anion Gap 11 3 - 11 LAB CHEMISTRY METHOD 03/22/2024 8:55 AM [facility] Glucose 158(H) 70 - 100 mg/dL LAB CHEMISTRY METHOD 03/22/2024 8:55 AM [facility] BUN 51(H) 5 - 25 mg/dL LAB CHEMISTRY METHOD 03/22/2024 8:55 AM [facility] Creatinine 4.91(H) 0.50 - 1.10 mg/dL LAB CHEMISTRY METHOD 03/22/2024 8:55 AM [facility] eGFR 9(L) >=60 mL/min/1. 73m2 LAB CHEMISTRY METHOD 03/22/2024 8:55 AM [facility] Comment:Calculation based on the Chronic Kidney Disease Epidemiology Collaboration (CKD-EPI) equation refit without adjustment for race. BUN/Creatinine Ratio 10.4 LAB CHEMISTRY METHOD 03/22/2024 8:55 AM [facility] Albumin 2.1(L) 3.2 - 5.0 g/dL LAB CHEMISTRY METHOD 03/22/2024 8:55 AM [facility] Calcium 9.0 8.5 - 10.5 mg/dL LAB CHEMISTRY METHOD 03/22/2024 8:55 AM [facility] Phosphorus 3.4 2.5 - 4.5 mg/dL LAB CHEMISTRY METHOD 03/22/2024 8:55 AM [facility] Blood Venous blood specimen / Unknown Venipuncture / Unknown 03/22/2024 6:50 AM EST 03/22/2024 8:05 AM EST Catalina Burr MD LAB BLOOD ORDERABLES Final Resul t [facility] [address] [place] [address], * (ABNORMAL) Complete blood count (03/22/2024 6:50 AM EST) WBC 10.4 4.8 - 10.8 K/mcL LAB HEMETOLOGY METHOD 03/22/2024 8:[address] [facility] RBC 2.80(L) 3.80 - 4.80 M/mcL LAB HEMETOLOGY METHOD 03/22/2024 8:32 AM [facility] Hemoglobin 7.9(L) 11.5 - 16.0 g/dL LAB HEMETOLOGY METHOD 03/22/2024 8:32 AM [facility] Hematocrit 27.8(L) 35.0 - 47.0 % LAB HEMETOLOGY METHOD 03/22/2024 8:32 AM [facility] MCV 98.6(H) 79.0 - 98.0 FL LAB HEMETOLOGY METHOD 03/22/2024 8:32 AM [facility] MCH 28.0 27.0 - 32.0 pcg LAB HEMETOLOGY METHOD 03/22/2024 8:32 AM [facility] MCHC 28.4(L) 32.0 - 37.0 g/dL LAB HEMETOLOGY METHOD 03/22/2024 8:32 AM [facility] RDW 17.8(H) 11.0 - 15.0 % LAB HEMETOLOGY METHOD 03/22/2024 8:32 AM [facility] Platelets 218 130 - 400 K/mcL LAB HEMETOLOGY METHOD 03/22/2024 8:32 AM [facility] MPV 10.7 7.0 - 11.0 FL LAB HEMETOLOGY METHOD 03/22/2024 8:[address] [facility] NRBC 0.0 <1.0 % LAB HEMETOLOGY METHOD 03/22/2024 8:[address] [facility] NRBC Absolute 0.00 <0.10 K/mcL LAB HEMETOLOGY METHOD 03/22/2024 8:[address] [facility] Blood Venous blood specimen / Unknown Venipuncture / Unknown 03/22/2024 6:50 AM EST 03/22/2024 8:05 AM EST us Catalina Burr MD LAB BLOOD ORDERABLES Final Resul t [facility] [address] [place] [address], [place] [phone] documented in this encounter Visit Diagnoses Diagnosis Chronic embolism and thrombosis of unspecified vein Acute kidney failure, unspecified (CMS/HCC V24) Acute kidney failure, unspecified Type 2 diabetes mellitus without complications (CMS/HCC V24, CMS/HCC V28) documented in this encounter Care Teams Epic [employer] Relationship Specialty Start Date End Date Marita Wetzel DO [address] [place] [address] PCP - General 01/09/23 documented as of this encounter
--- OUTSIDE RECORDS SUMMARY | 2025-01-06 15:36 | XMS_ITS | Encounter Summary ---
Author Organization [facility] Address [address] [place] [address] Phone Care Team Providers Care Enterprise Project Manager Name Role Phone Marita Wetzel DO Primary Care Provider Unava ilable Encounter Details Date Type Department Care Team (Late st Contact Info) Description 04/17/2024 Documentation Only [facility] [address] [place] [phone] [place], [place], [place] [address] [place] [phone] Social History Tobacco Use Types Packs/Day Years [...] [facility] [address] [place] [phone] 03/08/2025 12:30 PM EST Scheduled Only [facility] [place] [address] [place] [phone] documented as of this encounter Visit Diagnoses Not on filedocumented in this encounter Care Teams Enterprise Project Manager Relationship Specialty Start Date End Date Marita Wetzel DO [address] [place] [address] PCP - General Family Medicine 11/14/22 documented as of this encounter
--- OUTSIDE RECORDS SUMMARY | 2025-01-06 15:36 | XMS_ITS | Encounter Summary ---
Author Organization [facility] Address [address] [place] [address] Care Team Providers Care Deaf And Hard Of Hearing Teacher Name Role Phone Mary JaneMarita yousif Primary Care Provider +1- [phone] Encounter Details Date Type Department Care Team (Late st Contact Info) Description 02/24/2024 Lab Requisition [facility] - Main Lab [address] [facility] [place] [address] Norbert Lopez MD [address] [facility] [address] [facility] [phone] Encounter for other specified [...] Travel phlebotomy fee (02/24/2024 12:45 PM EST) [facility] TRAVEL PHLEBOTOMY FEE Completed 02/24/2024 2:01 PM EST [facility] Blood Venous blood specimen / Unknown Venipuncture / Unknown 02/24/2024 12:45 PM EST 02/24/2024 1:29 PM EST Norbert Lopez MD LAB BLOOD ORDERABLES Final Resul t Performing Organization Address [facility] Co de Phone Number [facility] [address] [place] [address], [place] [phone] * (ABNORMAL) Heparin and low molecular weight anti Xa level (02/24/2024 12:45 PM EST) [facility] Heparin Anti-Xa 0.28(L) 0.30 - 0.70 I Unit/mL LAB COAGULATION METHOD 02/24/2024 2:02 PM EST [facility] Blood Venous blood specimen / Unknown Venipuncture / Unknown 02/24/2024 12:45 PM EST 02/24/2024 1:29 PM EST Narrative [facility] - 02/24/2024 2:02 PM EST Therapeutic range listed is for Unfractionated Heparin. LMW Heparin therapeutic range: 0.50-1.20 IU/mL Norbert Lopez MD LAB BLOOD ORDERABLES Final Resul t Performing Organization Address [facility]/ZIP Co de Phone Number [facility] [address] [place] [address], [place] [phone] * (ABNORMAL) Basic metabolic panel (02/24/2024 12:45 PM EST) [facility] Sodium 137 133 - 145 mmol/L LAB CHEMISTRY METHOD 02/24/2024 3:10 PM [facility] Potassium 3.7 3.5 - 5.5 mmol/L LAB CHEMISTRY METHOD 02/24/2024 3:10 PM [facility] Chloride 104 96 - 110 mmol/L LAB CHEMISTRY METHOD 02/24/2024 3:10 PM [facility] CO2 22 21 - 32 mmol/L LAB CHEMISTRY METHOD 02/24/2024 3:10 PM [facility] Anion Gap 11 3 - 11 LAB CHEMISTRY METHOD 02/24/2024 3:10 PM [facility] Glucose 163(H) 70 - 100 mg/dL LAB CHEMISTRY METHOD 02/24/2024 3:10 PM [facility] BUN 33(H) 5 - 25 mg/dL LAB CHEMISTRY METHOD 02/24/2024 3:10 PM [facility] Creatinine 3.25(H) 0.50 - 1.10 mg/dL LAB CHEMISTRY METHOD 02/24/2024 3:10 PM [facility] eGFR 15(L) >=60 mL/min/1. 73m2 LAB CHEMISTRY METHOD 02/24/2024 3:10 PM [facility] Comment:Calculation based on the Chronic Kidney Disease Epidemiology Collaboration (CKD-EPI) equation refit without adjustment for race. BUN/Creatinine Ratio 10.2 LAB CHEMISTRY METHOD 02/24/2024 3:10 PM [facility] Calcium 9.4 8.5 - 10.5 mg/dL LAB CHEMISTRY METHOD 02/24/2024 3:10 PM [facility] Blood Venous blood specimen / Unknown Venipuncture / Unknown 02/24/2024 12:45 PM EST 02/24/2024 1:29 PM EST us Norbert Lopez MD LAB BLOOD ORDERABLES Final Resul t [facility] [address] [place] [address], * (ABNORMAL) Complete blood count (02/24/2024 12:45 PM EST) [facility] WBC 11.3(H) 4.8 - 10.8 K/mcL LAB HEMETOLOGY METHOD 02/24/2024 1:38 PM [facility] RBC 3.30(L) 3.80 - 4.80 M/mcL LAB HEMETOLOGY METHOD 02/24/2024 1:38 PM [facility] Hemoglobin 9.2(L) 11.5 - 16.0 g/dL LAB HEMETOLOGY METHOD 02/24/2024 1:38 PM [facility] Hematocrit 31.3(L) 35.0 - 47.0 % LAB HEMETOLOGY METHOD 02/24/2024 1:38 PM [facility] MCV 95.4 79.0 - 98.0 FL LAB HEMETOLOGY METHOD 02/24/2024 1:38 PM [facility] MCH 28.0 27.0 - 32.0 pcg LAB HEMETOLOGY METHOD 02/24/2024 1:38 PM [facility] MCHC 29.4(L) 32.0 - 37.0 g/dL LAB HEMETOLOGY METHOD 02/24/2024 1:38 PM [facility] RDW 16.6(H) 11.0 - 15.0 % LAB HEMETOLOGY METHOD 02/24/2024 1:38 PM [facility] Platelets 278 130 - 400 K/mcL LAB HEMETOLOGY METHOD 02/24/2024 1:38 PM [facility] MPV 10.7 7.0 - 11.0 FL LAB HEMETOLOGY METHOD 02/24/2024 1:38 PM [facility] NRBC 0.0 <1.0 % LAB HEMETOLOGY METHOD 02/24/2024 1:38 PM EST [facility] NRBC Absolute 0.00 <0.10 K/mcL LAB HEMETOLOGY METHOD 02/24/2024 1:38 PM EST [facility] Blood Venous blood specimen / Unknown Venipuncture / Unknown 02/24/2024 12:45 PM EST 02/24/2024 1:29 PM EST us Norbert Lopez MD LAB BLOOD ORDERABLES Final Resul t [facility] [address] [place] [address], documented in this encounter Visit Diagnoses Diagnosis Encounter for other specified prophylactic measures Acute kidney failure, unspecified (CMS/HCC V24) Acute kidney failure, unspecified documented in this encounter Care Teams Deaf And Hard Of Hearing Teacher Relationship Specialty Start Date End Date Marita Wetzel DO [address] [place] [address] PCP - General 01/09/23 documented as of this encounter
--- OUTSIDE RECORDS SUMMARY | 2025-01-06 15:36 | XMS_ITS | Encounter Summary ---
Author Organization [facility] Address [address] [place] [address] Care Team Providers Care Dehydrator Name Role Phone Mary JaneMarita yousif Primary Care Provider +1- [phone] Encounter Details Date Type Department Care Team (Late st Contact Info) Description 03/12/2024 Lab Requisition [facility] - Main Lab [address] [facility] [place] [address] Catalina Burr MD [address] [place], [place] [id number] Chronic embolism and thrombosis of unspecified vein; [...] - 20.0 ng/mL 03/17/2024 1:34 PM EST [facility] Comment: Additional Information: Toxic [...] developed and the performance characteristics determined by [facility]. This confirmation testing has not been cleared or approved by the FDA. The laboratory is regulated under CLIA as qualified to perform high-complexity testing. This test is used for patient testing purposes. It should not be regarded as investigational or for research. Test performed at [facility], [address], [place] [address] Ashtyn Leigh MD, PhD - Terrazzo Grinder Blood Venous blood specimen / Unknown Venipuncture / Unknown 03/15/2024 8:20 AM EST 03/15/2024 10:20 AM EST Catalina Burr MD LAB BLOOD ORDERABLES Final Resul t [facility] [address] [place] [address] * (ABNORMAL) Renal function panel (03/15/2024 8:20 AM EST) Pathologist [facility] Sodium 139 133 - 145 mmol/L LAB CHEMISTRY METHOD 03/15/2024 11:31 AM EST [facility] Potassium 5.6(H) 3.5 - 5.5 mmol/L LAB CHEMISTRY METHOD 03/15/2024 11:31 AM EST [facility] Chloride 108 96 - 110 mmol/L LAB CHEMISTRY METHOD 03/15/2024 11:31 AM EST [facility] CO2 19(L) 21 - 32 mmol/L LAB CHEMISTRY METHOD 03/15/2024 11:31 AM [facility] Anion Gap 12(H) 3 - 11 LAB CHEMISTRY METHOD 03/15/2024 11:31 AM [facility] Glucose 105(H) 70 - 100 mg/dL LAB CHEMISTRY METHOD 03/15/2024 11:31 AM [facility] BUN 36(H) 5 - 25 mg/dL LAB CHEMISTRY METHOD 03/15/2024 11:31 AM [facility] Creatinine 3.97(H) 0.50 - 1.10 mg/dL LAB CHEMISTRY METHOD 03/15/2024 11:31 AM [facility] eGFR 12(L) >=60 mL/min/1. 73m2 LAB CHEMISTRY METHOD 03/15/2024 11:31 AM [facility] Comment:Calculation based on the Chronic Kidney Disease Epidemiology Collaboration (CKD-EPI) equation refit without adjustment for race. BUN/Creatinine Ratio 9.1 LAB CHEMISTRY METHOD 03/15/2024 11:31 AM [facility] Albumin 2.6(L) 3.2 - 5.0 g/dL LAB CHEMISTRY METHOD 03/15/2024 11:31 AM [facility] Calcium 9.5 8.5 - 10.5 mg/dL LAB CHEMISTRY METHOD 03/15/2024 11:31 AM [facility] Phosphorus 4.0 2.5 - 4.5 mg/dL LAB CHEMISTRY METHOD 03/15/2024 11:31 AM [facility] Blood Venous blood specimen / Unknown Venipuncture / Unknown 03/15/2024 8:20 AM EST 03/15/2024 10:16 AM EST us Catalina Burr MD LAB BLOOD ORDERABLES Final Resul t [facility] [address] [place] [address], [place] [phone] documented in this encounter Visit Diagnoses Diagnosis Chronic embolism and thrombosis of unspecified vein Acute kidney failure, unspecified (CMS/[facility] V24) Acute kidney failure, unspecified Type 2 diabetes mellitus without complications ([facility] V24, CMS/[facility] V28) documented in this encounter Care Teams Dehydrator Relationship Specialty Start Date End Date Marita Wetzel DO [address] [place] [address] PCP - General 01/09/23 documented as of this encounter
--- OUTSIDE RECORDS SUMMARY | 2025-01-06 15:36 | XMS_ITS | Encounter Summary ---
Author Organization [facility] Address [address] [place] [address] Phone Care Team Providers Care Life Sciences Instructor Name Role Phone Marita Wetzel DO Primary Care Provider Unava ilable Encounter Details Date Type Department Care Team (Late st Contact Info) Description 04/13/2024 Documentation Only [facility] [address] [place] [phone] [place], [place] [address] [place] [phone] Social History Tobacco Use Types Packs/Day Years [...] [facility] [address] [place] [phone] 03/08/2025 12:30 PM EST Scheduled Only [facility] Access [place] [address] [place] [phone] documented as of this encounter Visit Diagnoses Not on filedocumented in this encounter Care Teams Life Sciences Instructor Relationship Specialty Start Date End Date Marita Wetzel DO [address] [place] [address] PCP - General Family Medicine 11/14/22 documented as of this encounter
--- OUTSIDE RECORDS SUMMARY | 2025-01-06 15:36 | XMS_ITS | Encounter Summary ---
Author Organization [facility] Address [address] [place] [address] Care Team Providers Care Cable Supervisor Name Role Phone Marita Wetzel Primary Care Provider +1- [phone] Encounter Details Date Type Department Care Team (Late st Contact Info) Description 02/25/2024 Lab Requisition [facility] - Main Lab [address] [facility] [place] [address] Catalina Burr MD [address] [place] [address] Chronic embolism and thrombosis of unspecified vein; [...] Travel phlebotomy fee (02/25/2024 6:30 AM EST) [facility] TRAVEL PHLEBOTOMY FEE Completed 02/25/2024 11:01 AM EST [facility] Blood Venous blood specimen / Unknown Venipuncture / Unknown 02/25/2024 6:30 AM EST 02/25/2024 10:25 AM EST Catalina Burr MD LAB BLOOD ORDERABLES Final Resul t Performing Organization Address [facility] de Phone Number [facility]) [facility] [address] [place] [address], * (ABNORMAL) Tacrolimus level (02/25/2024 6:30 AM EST) Tacrolimus Level 3.8(L) 5.0 - 20.0 ng/mL 02/28/2024 12:37 PM EST [facility] Comment: Additional Information: Toxic Level [...] developed and the performance characteristics determined by [facility]. This confirmation testing has not been cleared or approved by the FDA. The laboratory is regulated under CLIA as qualified to perform high-complexity testing. This test is used for patient testing purposes. It should not be regarded as investigational or for research. Test performed at [facility], [address], [place], [place] [id number] Ashtyn Leigh MD, PhD - Serology Teacher Blood Venous blood specimen / Unknown Venipuncture / Unknown 02/25/2024 6:30 AM EST 02/25/2024 10:25 AM EST Catalina Burr MD LAB BLOOD ORDERABLES Final Resul t Performing Organization Address City/[facility]/ZIP Co de Phone Number [facility] [address] [place], [place] [phone] documented in this encounter Visit Diagnoses Diagnosis Chronic embolism and thrombosis of unspecified vein Acute kidney failure, unspecified (CMS/[facility] V24) Acute kidney failure, unspecified documented in this encounter Care Teams Cable Supervisor Relationship Specialty Start Date End Date Marita Wetzel DO [address] [place] [address] PCP - General 01/09/23 documented as of this encounter
--- OUTSIDE RECORDS SUMMARY | 2025-01-06 15:36 | XMS_ITS | Encounter Summary ---
Author Organization [facility] [place], Address [address] [facility] [address] Phone Care Team Providers Care Pizza Hut Team Member Name Role Phone Marita Wetzel DO Primary Care Provider Unava ilable Reason for Visit * Reason Comments Med Refill Encounter Details Date Type Department Care Team (Late Contact Info) Description 06/18/2024 Refill [facility] [place] [address] [place] [phone] Srinivas Agrawal MD [address] [place] [phone] Social History Tobacco Use Types Packs/Day Years [...] Of [facility] [address] [place] [phone] 03/08/2025 12:30 PM EST Scheduled Only [facility] [address] [place] [phone] documented as of this encounter Procedures Procedure Name Priority Date/Time Associated Diagnosis Comments HD KINETICS Routine 06/18/2024 POST CHEMISTRY Routine 06/18/2024 IMMUNO CHEMISTRY Routine 06/18/2024 HEMATOLOGY Routine 06/18/2024 CHEMISTRY Routine 06/18/2024 CHEMISTRY Routine 06/18/2024 [facility] RESULTS Routine 06/18/2024 documented in this encounter Results * [facility] Results (06/18/2024) Pathologist [facility] eKt/V ([place]all) 1.28 Knowledge Center WSTDKT/V 0.8 Knowledge Center spKt/V (Daugirdas II) 1.50 Knowledge Center 06/18/2024 06/18/2024 [facility] Ordering Provider LAB BLOOD ORDERABLES Final Result [...] Unknown, [place] * POST CHEMISTRY (06/18/2024) Pathologist [facility] BUN Post Dialysis 13 6 - 19 mg/dL [facility] 06/18/2024 06/22/2024 9:5 5 AM EST Narrative [facility] - 06/22/2024 Unless otherwise specified, test(s) performed at: [facility], [address] [place] [address] MOTOR VEHICLE DISPATCHER: Dwayne Fuentes M.D. For any questions, please call customer service at FREQUENCY:MONTHLY Resulting Agency Comment Specimen source: Plasma Srinivas Agrawal MD LAB BLOOD ORDERABLES Final Result [facility] See order comments or contact performing lab Unknown, [place] * IMMUNO CHEMISTRY (06/18/2024) Pathologist [facility] Hep B Surface Ag Negative Negative [facility] 06/18/2024 06/19/2024 11: 21 AM EST Narrative Resulting Agency Comment Specimen source: Serum Srinivas Agrawal MD LAB BLOOD ORDERABLES Final Result Performing Organization Address City/[facility]/ZIP Co de Phone Number [facility] See order comments or contact performing [...] 06/19/2024 Unless otherwise specified, test(s) performed at: [facility], [address] [place], [place] [id number] MOTOR VEHICLE DISPATCHER: Dwayne Fuentes M.D. For any questions, please call customer service at FREQUENCY:MONTHLY Resulting Agency Comment Specimen source: Serum Srinivas Agrawal MD LAB BLOOD ORDERABLES Edite d Result - Final Performing Organization Address [facility] Co de Phone Number [facility] See order comments or contact performing lab Unknown, [place] * (ABNORMAL) HEMATOLOGY (06/18/2024) Hemoglobin 7.9(L) 12.0 - 16.0 g/dL [facility] Hemoglobin x 3 23.7(L) 36.0 - 48.0 % [facility] 06/18/2024 06/19/2024 12: 24 PM EST Narrative [facility] - 06/19/2024 Unless otherwise specified, test(s) performed at: [facility], [address] [place] [id number] MOTOR VEHICLE DISPATCHER: Dwayne Fuentes M.D. For any questions, please call customer service at FREQUENCY:MONTHLY Resulting Agency Comment Specimen source: Blood Srinivas Agrawal MD LAB BLOOD ORDERABLES Final Result Performing Organization Address City/[facility]/ZIP Co de Phone Number [facility] See order comments or contact performing lab Unknown, [place] * (ABNORMAL) [facility] Chemistry (06/18/2024) PTH 145(H) 16 - 80 pg/mL [facility] 06/18/2024 06/19/2024 11: 40 AM EST Narrative [facility] - 06/19/2024 Unless otherwise specified, test(s) performed at: [facility], [address] [place] [id number] MOTOR VEHICLE DISPATCHER: Dwayne Fuentes M.D. For any questions, please call customer service at FREQUENCY:MONTHLY Resulting Agency Comment Specimen source: Plasma us Srinivas Agrawal MD LAB BLOOD ORDERABLES Final Result [facility] See order comments or contact performing lab Unknown, [place] documented in this encounter Visit Diagnoses Not on filedocumented in this encounter Care Teams Pizza Hut Team Member Relationship Specialty Start Date End Date Marita Wetzel DO [address] [place] [address] PCP - General Family Medicine 11/14/22 documented as of this encounter
--- OUTSIDE RECORDS SUMMARY | 2025-01-06 15:36 | XMS_ITS | Encounter Summary ---
Author Organization [facility] Address [address] [place] [address] Phone Care Team Providers Care Inspector Penetrant Name Role Phone Marita Wetzel DO Primary Care Provider Unava ilable Encounter Details Date Type Department Care Team (Late st Contact Info) Description 06/12/2023 Documentation Only [facility] [address] [place] [phone] [place], [place], [place] [address] [place] [phone] Social History Tobacco Use Types Packs/Day Years [...] Support [facility] Access Center [address] [place] [phone] 03/08/2025 12:30 PM EST Scheduled Only [facility] [address] [place] [phone] documented as of this encounter Visit Diagnoses Not on filedocumented in this encounter Care Teams Inspector Penetrant Relationship Specialty Start Date End Date Marita Wetzel DO [address] [place] [address] PCP - General Family Medicine 11/14/22 documented as of this encounter
--- OUTSIDE RECORDS SUMMARY | 2025-01-06 15:36 | XMS_ITS | Encounter Summary ---
Author Organization [facility] [place], Address [address] [place] [address] Phone Care Team Providers Care Sewage Reticulation Drafting Officer Name Role Phone Marita Wetzel DO Primary Care Provider Unava ilable Encounter Details Date Type Department Care Team (Late st Contact Info) Description 06/23/2023 Documentation Only [facility] [address] [place] [phone] [place], [place] [address] [place] [phone] Social History Tobacco Use Types Packs/Day Years [...] And Transplant Services Of [facility] - [facility] Access Center [address] [place] [phone] 03/08/2025 12:30 PM EST Scheduled Only [facility] V[facility] Access Center [address] [place] [phone] documented as of this encounter Visit Diagnoses Not on filedocumented in this encounter Care Teams Sewage Reticulation Drafting Officer Relationship Specialty Start Date End Date Marita Wetzel DO [address] [place] [address] PCP - General Family Medicine 11/14/22 documented as of this encounter
--- OUTSIDE RECORDS SUMMARY | 2025-01-06 15:36 | XMS_ITS | Clinical Summary ---
Author Organization [address] Address [address] [place] [address] Phone Care Team Providers Care Transformer Assembler Name Role Phone Mary JaneMarita yousif Scottie MARROQUIN Primary Care Provider +1- [phone] Immunizations Name Administration Dates Next Due Moderna [...] 05/16/2023 Social Influencers of Health Screening 05/16/2023 Diabetes: Annual Urine Albumin-Creatinine Ratio (uACR) 03/01/2024 Depression Screening 04/21/2024 Diabetes: Blood Sugar Control Test (HGBA1C) 10/18/2024 04/20/2024, 04/20/2024, 02/03/2024, Additional history exists COVID-19 Vaccine ( season) 2024 02/01/2022, 06/22/2020, 05/25/2020 Influenza Vaccine (#1) 2024 , 02/26/2023, 01/23/2022, [...] mmol/L LAB CHEMISTRY METHOD 05/10/2024 11:45 AM [facility] Potassium 3.8 3.5 - 5.5 mmol/L LAB CHEMISTRY METHOD 05/10/2024 11:45 AM [facility] Chloride 96 96 - 110 mmol/L LAB CHEMISTRY METHOD 05/10/2024 11:45 AM [facility] CO2 28 21 - 32 mmol/L LAB CHEMISTRY METHOD 05/10/2024 11:45 AM [facility] Anion Gap 11 3 - 11 LAB CHEMISTRY METHOD 05/10/2024 11:45 AM [facility] Glucose 215(H) 70 - 100 mg/dL LAB CHEMISTRY METHOD 05/10/2024 11:45 AM [facility] BUN 45(H) 5 - 25 mg/dL LAB CHEMISTRY METHOD 05/10/2024 11:45 AM [facility] Creatinine 3.47(H) 0.50 - 1.10 mg/dL LAB CHEMISTRY METHOD 05/10/2024 11:45 AM [facility] eGFR 14(L) >=60 mL/min/1. 73m2 LAB CHEMISTRY METHOD 05/10/2024 11:45 AM [facility] Comment:Calculation based on the Chronic Kidney Disease Epidemiology Collaboration (CKD-EPI) equation refit without adjustment for race. BUN/Creatinine Ratio 13.0 LAB CHEMISTRY METHOD 05/10/2024 11:45 AM [facility] Albumin 1.7(L) 3.2 - 5.0 g/dL LAB CHEMISTRY METHOD 05/10/2024 11:45 AM [facility] Calcium 8.4(L) 8.5 - 10.5 mg/dL LAB CHEMISTRY METHOD 05/10/2024 11:45 AM EST [facility] ([facility] Phosphorus 2.1(L) 2.5 - 4.5 mg/dL LAB CHEMISTRY METHOD 05/10/2024 11:45 AM EST [facility] Blood Venous blood specimen / Unknown Venipuncture / Unknown 05/10/2024 5:50 AM EST 05/10/2024 9:58 AM EST us Marily Gordillo MD LAB BLOOD ORDERABLES Final Resul t [facility] ([facility]) [facility] [address] [place] [address], from Last 3 Months or Most Recently Relevant to Health Maintenance Insurance MEDICARE Care Teams Transformer Assembler Relationship Specialty Start Date End Date Marita Wetzel DO [address] [place] [address] PCP - General 01/09/23
--- OUTSIDE RECORDS SUMMARY | 2025-01-06 15:36 | XMS_ITS | Encounter Summary ---
Author Organization [facility] Address [address] [place] [address] Phone Care Team Providers Care Hand Mixer Name Role Phone Marita Wetzel DO Primary Care Provider Unava ilable Encounter Details Date Type Department Care Team (Late st Contact Info) Description 11/11/2022 Documentation Only [facility] Of [address] [place] [phone] Pauline Aguayo [address] [place] [phone] Social History Tobacco Use Types Packs/Day Years [...] Support [facility] Of [facility] V[facility] Access Center [address] [place] [phone] 03/08/2025 12:30 PM EST Scheduled Only [facility] Center [address] [place] [phone] documented as of this encounter Visit Diagnoses Not on filedocumented in this encounter Care Teams Hand Mixer Relationship Specialty Start Date End Date Marita Wetzel DO [address] [place] [address] PCP - General Family Medicine 11/14/22 documented as of this encounter
--- OUTSIDE RECORDS SUMMARY | 2025-01-06 15:36 | XMS_ITS | Encounter Summary ---
Author Organization [facility] [place], Address [address] [place] [address] Phone Care Team Providers Care Regional Sales Representative Name Role Phone Marita Wetzel DO Primary Care Provider Unava ilable Reason for Visit * Reason Comments Med Refill Encounter Details Date Type Department Care Team (Late Contact Info) Description 05/08/2021 Refill [facility] [address] [place] [phone] Bernadro Doty MD [address] [address] [place] [phone] Social History Tobacco Use Types Packs/Day Years [...] Of [facility] Center [address] [place] [address] 03/08/2025 12:30 PM EST Scheduled Only [facility] [address] [place] [phone] documented as of this encounter Visit Diagnoses Not on filedocumented in this encounter Care Teams Regional Sales Representative Relationship Specialty Start Date End Date Marita Wetzel DO [address] [place] [address] PCP - General Family Medicine 11/14/22 documented as of this encounter
--- OUTSIDE RECORDS SUMMARY | 2025-01-06 15:36 | XMS_ITS | Encounter Summary ---
Author Organization [facility] Address [address] [place] [address] Care Team Providers Care Customer Service Sales Consultant Name Role Phone Marita Wetzel Primary Care Provider +1- [phone] Encounter Details Date Type Department Care Team (Late st Contact Info) Description 03/29/2024 Lab Requisition [facility] - Main Lab [address] [facility] [place] [address] Catalina Burr MD [address] [place] [address] End stage renal disease (CMS/HCC V24, CMS/HCC [...] - 20.0 ng/mL 03/31/2024 12:22 PM EST [facility] Comment: Additional Information: Toxic Level > [...] developed and the performance characteristics determined by [facility]. This confirmation testing has not been cleared or approved by the FDA. The laboratory is regulated under CLIA as qualified to perform high-complexity testing. This test is used for patient testing purposes. It should not be regarded as investigational or for research. Test performed at [facility], [address] , [place] [address] Ashtyn Leigh MD, PhD - [employer]er Farm Worker Blood Venous blood specimen / Unknown Venipuncture / Unknown 03/29/2024 6:53 AM EST 03/29/2024 8:32 AM EST us Catalina Burr MD LAB BLOOD ORDERABLES Final Resul t [facility] [address] [place] [address] * (ABNORMAL) Renal function panel (03/29/2024 6:53 AM EST) Sodium 140 133 - 145 mmol/L LAB CHEMISTRY METHOD 03/29/2024 10:07 AM EST [facility] Potassium 3.9 3.5 - 5.5 mmol/L LAB CHEMISTRY METHOD 03/29/2024 10:07 AM EST [facility] [...] t [facility] [address] [place] [address], [place] [phone] * (ABNORMAL) Complete blood count (03/29/2024 6:53 AM EST) WBC 11.0(H) 4.8 - 10.8 K/mcL LAB HEMETOLOGY METHOD 03/29/2024 9:47 AM [facility] RBC 2.80(L) 3.80 - 4.80 M/[facility] LAB HEMETOLOGY METHOD 03/29/2024 9:47 AM [facility] Platelets 301 130 - 400 K/[facility] LAB HEMETOLOGY METHOD 03/29/2024 9:47 AM [place] [...] LAB BLOOD ORDERABLES Final Resul t [facility] ([facility]) [facility] [address] [place] [address], documented in this encounter Visit Diagnoses Diagnosis End stage renal disease (CMS/HCC V24, CMS/HCC V28) End stage renal disease documented in this encounter Care Teams Customer Service Sales Consultant Relationship Specialty Start Date End Date Marita Wetzel DO [address] [place] [address] PCP - General 01/09/23 documented as of this encounter
--- OUTSIDE RECORDS SUMMARY | 2025-01-06 15:36 | XMS_ITS | Encounter Summary ---
Author Organization [facility], Address [address] [place] [address] Phone Care Team Providers Care Distance Learning Technician Name Role Phone Marita Wetzel DO Primary Care Provider Unava ilable Reason for Visit * Reason Comments Med Refill Encounter Details Date Type Department Care Team (Late Contact Info) Description 01/04/2021 Refill [facility] [address] [place] [phone] Bernardo Doty MD [address] [place] [phone] Social History Tobacco Use Types Packs/Day Years [...] [facility] [address] [place] [address] 03/08/2025 12:30 PM EST Scheduled Only [facility] [address] [place] [phone] documented as of this encounter Visit Diagnoses Not on filedocumented in this encounter Care Teams Distance Learning Technician Relationship Specialty Start Date End Date Marita Wetzel DO [address] [place] [address] PCP - General Family Medicine 11/14/22 documented as of this encounter
--- OUTSIDE RECORDS SUMMARY | 2025-01-06 15:36 | XMS_ITS | Encounter Summary ---
Author Organization [facility] Address [address] [place] [address] Care Team Providers Care Lithographic Platemaker Name Role Phone Mary JaneMarita yousif Primary Care Provider +1- [phone] Encounter Details Date Type Department Care Team (Late st Contact Info) Description 03/05/[address] [facility] - Main Lab [address] [facility] [place] [address] Catalina Burr MD [address] [place] [address] Chronic embolism and thrombosis of unspecified vein; [...] - 20.0 ng/mL 03/10/2024 1:48 PM EST [facility] Comment: Additional Information: Toxic Level > [...] performance characteristics determined by [facility]. This confirmation testing has not been cleared or approved by the FDA. The laboratory is regulated under CLIA as qualified to perform high-complexity testing. This test is used for patient testing purposes. It should not be regarded as investigational or for research. Test performed at [facility], [address], [place], [place] [id number] Ashtyn Leigh MD, PhD - Reinforcing Steel Placer Blood Venous blood specimen / Unknown Venipuncture / Unknown 03/08/2024 6:29 AM EST 03/08/2024 7:46 AM EST us Catalina Burr MD LAB BLOOD ORDERABLES Final Resul t [facility] [address] [place] [address] * (ABNORMAL) Renal function panel (03/08/2024 6:29 AM EST) Sodium 139 133 - 145 mmol/L LAB CHEMISTRY METHOD 03/08/2024 8:58 AM EST [facility] Potassium 4.5 3.5 - 5.5 mmol/L LAB CHEMISTRY METHOD 03/08/2024 8:58 AM [facility] Chloride 108 96 - 110 mmol/L LAB CHEMISTRY METHOD 03/08/2024 8:58 AM [facility] CO2 20(L) 21 - 32 mmol/L LAB CHEMISTRY METHOD 03/08/2024 8:58 AM [facility] Anion Gap 11 3 - 11 LAB CHEMISTRY METHOD 03/08/2024 8:58 AM [facility] Glucose 93 70 - 100 mg/dL LAB CHEMISTRY METHOD 03/08/2024 8:58 AM [facility] BUN 35(H) 5 - 25 mg/dL LAB CHEMISTRY METHOD 03/08/2024 8:58 AM [facility] Creatinine 3.99(H) 0.50 - 1.10 mg/dL LAB CHEMISTRY METHOD 03/08/2024 8:58 AM [facility] eGFR 12(L) >=60 mL/min/1. 73m2 LAB CHEMISTRY METHOD 03/08/2024 8:58 AM [facility] Comment:Calculation based on the Chronic Kidney Disease Epidemiology Collaboration (CKD-EPI) equation refit without adjustment for race. BUN/Creatinine Ratio 8.8 LAB CHEMISTRY METHOD 03/08/2024 8:58 AM [facility] Albumin 2.3(L) 3.2 - 5.0 g/dL LAB CHEMISTRY METHOD 03/08/2024 8:58 AM [facility] Calcium 9.0 8.5 - 10.5 mg/dL LAB CHEMISTRY METHOD 03/08/2024 8:58 AM [facility] Phosphorus 3.2 2.5 - 4.5 mg/dL LAB CHEMISTRY METHOD 03/08/2024 8:58 AM [facility] Blood Venous blood specimen / Unknown Venipuncture / Unknown 03/08/2024 6:29 AM EST 03/08/2024 7:46 AM EST Catalina Burr MD LAB BLOOD ORDERABLES Final Resul t [facility] [address] [place] [address], * (ABNORMAL) Complete blood count (03/08/2024 6:29 AM EST) WBC 9.8 4.8 - 10.8 K/mcL LAB HEMETOLOGY METHOD 03/08/2024 8:10 AM EST [facility] RBC 2.90(L) 3.80 - 4.80 M/mcL LAB HEMETOLOGY METHOD 03/08/2024 8:10 AM EST [facility] Hemoglobin 7.9(L) 11.5 - 16.0 g/dL LAB HEMETOLOGY METHOD 03/08/2024 8:10 AM EST [facility] Hematocrit 28.5(L) 35.0 - 47.0 % LAB HEMETOLOGY METHOD 03/08/2024 8:10 AM EST [facility] MCV 99.3(H) 79.0 - 98.0 FL LAB HEMETOLOGY METHOD 03/08/2024 8:10 AM EST [facility] MCH 27.5 27.0 - 32.0 pcg LAB HEMETOLOGY METHOD 03/08/2024 8:10 AM [facility] MCHC 27.7(L) 32.0 - 37.0 g/dL LAB HEMETOLOGY METHOD 03/08/2024 8:10 AM [facility] RDW 17.2(H) 11.0 - 15.0 % LAB HEMETOLOGY METHOD 03/08/2024 8:10 AM [facility] Platelets 299 130 - 400 K/mcL LAB HEMETOLOGY METHOD 03/08/2024 8:10 AM [facility] MPV 11.5(H) 7.0 - 11.0 FL LAB HEMETOLOGY METHOD 03/08/2024 8:10 AM EST [facility] NRBC 0.0 <1.0 % LAB HEMETOLOGY METHOD 03/08/2024 8:10 AM EST [facility] NRBC Absolute 0.00 <0.10 K/mcL LAB HEMETOLOGY METHOD 03/08/2024 8:10 AM EST [facility] Blood Venous blood specimen / Unknown Venipuncture / Unknown 03/08/2024 6:29 AM EST 03/08/2024 7:46 AM EST us Catalina Burr MD LAB BLOOD ORDERABLES Final Resul t [facility] [address] [place] [address], [place] [phone] documented in this encounter Visit Diagnoses Diagnosis Chronic embolism and thrombosis of unspecified vein Acute kidney failure, unspecified (CMS/HCC V24) Acute kidney failure, unspecified Type 2 diabetes mellitus without complications (CMS/HCC V24, CMS/HCC V28) documented in this encounter Care Teams Lithographic Platemaker Relationship Specialty Start Date End Date Marita Wetzel DO [address] [place] [address] PCP - General 01/09/23 documented as of this encounter
--- OUTSIDE RECORDS SUMMARY | 2025-01-06 15:36 | XMS_ITS | Encounter Summary ---
Author Organization [facility] Address [address] [place] [address] Care Team Providers Care Windows Server Specialist Name Role Phone Marita Wetzel Primary Care Provider +1- [phone] Encounter Details Date Type Department Care Team (Late st Contact Info) Description 04/02/2024 Lab Requisition [facility] - Main Lab [address] [facility] [place] [phone] Marily Gordillo MD [address] [place] [address] Chronic embolism and thrombosis of [...] - 20.0 ng/mL 04/07/2024 4:[address] [facility] Comment: Additional Information: Toxic Level [...] developed and the performance characteristics determined by [facility]. This confirmation testing has not been cleared or approved by the FDA. The laboratory is regulated under CLIA as qualified to perform high-complexity testing. This test is used for patient testing purposes. It should not be regarded as investigational or for research. Test performed at [facility], [address], [place] [address] Ashtyn Leigh MD, PhD - Rug Underlay Machine Operator Blood Venous blood specimen / Unknown Venipuncture / Unknown 04/05/2024 6:56 AM EST 04/05/2024 10:25 AM EST us Marily Gordillo MD LAB BLOOD ORDERABLES Final Resul t [facility] [address] [place] [address] * (ABNORMAL) Renal function panel (04/05/2024 6:56 AM EST) Pathologist [facility] Sodium 138 133 - 145 mmol/L LAB CHEMISTRY METHOD 04/05/2024 11:52 AM EST [facility] Potassium 5.0 3.5 - 5.5 mmol/L LAB CHEMISTRY METHOD 04/05/2024 11:52 AM EST [facility] Chloride 107 96 - 110 mmol/L LAB CHEMISTRY METHOD 04/05/2024 11:52 AM EST [facility] CO2 20(L) 21 - 32 mmol/L LAB CHEMISTRY METHOD 04/05/2024 11:52 AM [facility] Anion Gap 11 3 - 11 LAB CHEMISTRY METHOD 04/05/2024 11:52 AM [facility] Glucose 104(H) 70 - 100 mg/dL LAB CHEMISTRY METHOD 04/05/2024 11:52 AM [facility] BUN 56(H) 5 - 25 mg/dL LAB CHEMISTRY METHOD 04/05/2024 11:52 AM [facility] Creatinine 4.43(H) 0.50 - 1.10 mg/dL LAB CHEMISTRY METHOD 04/05/2024 11:52 AM [facility] eGFR 11(L) >=60 mL/min/1. 73m2 LAB CHEMISTRY METHOD 04/05/2024 11:52 AM [facility] Comment:Calculation based on the Chronic Kidney Disease Epidemiology Collaboration (CKD-EPI) equation refit without adjustment for race. BUN/Creatinine Ratio 12.6 LAB CHEMISTRY METHOD 04/05/2024 11:52 AM [facility] Albumin 1.9(L) 3.2 - 5.0 g/dL LAB CHEMISTRY METHOD 04/05/2024 11:52 AM [facility] Calcium 9.0 8.5 - 10.5 mg/dL LAB CHEMISTRY METHOD 04/05/2024 11:52 AM [facility] Phosphorus 3.1 2.5 - 4.5 mg/dL LAB CHEMISTRY METHOD 04/05/2024 11:52 AM [facility] Blood Venous blood specimen / Unknown Venipuncture / Unknown 04/05/2024 6:56 AM EST 04/05/2024 10:21 AM EST us Marily Gordillo MD LAB BLOOD ORDERABLES Final Resul t [facility] [address] [place] [address], * (ABNORMAL) Complete blood count (04/05/2024 6:56 AM EST) [facility] WBC 9.2 4.8 - 10.8 K/mcL LAB HEMETOLOGY METHOD 04/05/2024 10:42 AM [facility] RBC 2.50(L) 3.80 - 4.80 M/mcL LAB HEMETOLOGY METHOD 04/05/2024 10:42 AM [facility] Hemoglobin 6.8(L) 11.5 - 16.0 g/dL LAB HEMETOLOGY METHOD 04/05/2024 10:42 AM [facility] Hematocrit 24.8(L) 35.0 - 47.0 % LAB HEMETOLOGY METHOD 04/05/2024 10:42 AM [facility] MCV 99.6(H) 79.0 - 98.0 FL LAB HEMETOLOGY METHOD 04/05/2024 10:42 AM [facility] MCH 27.3 27.0 - 32.0 pcg LAB HEMETOLOGY METHOD 04/05/2024 10:42 AM [facility] MCHC 27.4(L) 32.0 - 37.0 g/dL LAB HEMETOLOGY METHOD 04/05/2024 10:42 AM [facility] RDW 16.7(H) 11.0 - 15.0 % LAB HEMETOLOGY METHOD 04/05/2024 10:42 AM [facility] Platelets 332 130 - 400 K/mcL LAB HEMETOLOGY METHOD 04/05/2024 10:42 AM [facility] MPV 10.2 7.0 - 11.0 FL LAB HEMETOLOGY METHOD 04/05/2024 10:42 AM [facility] NRBC 0.0 <1.0 % LAB HEMETOLOGY METHOD 04/05/2024 10:42 AM [facility] NRBC Absolute 0.00 <0.10 K/mcL LAB HEMETOLOGY METHOD 04/05/2024 10:42 AM EST [facility] Blood Venous blood specimen / Unknown Venipuncture / Unknown 04/05/2024 6:56 AM EST 04/05/2024 10:26 AM EST us Marily Gordillo MD LAB BLOOD ORDERABLES Final Resul t [facility] [address] [place] [address], [place] [phone] documented in this encounter Visit Diagnoses Diagnosis Chronic embolism and thrombosis of unspecified vein Acute kidney failure, unspecified (CMS/HCC V24) Acute kidney failure, unspecified documented in this encounter Care Teams Windows Server Specialist Relationship Specialty Start Date End Date Marita Wetzel DO [address] [place] [address] PCP - General 01/09/23 documented as of this encounter
--- OUTSIDE RECORDS SUMMARY | 2025-01-06 15:36 | XMS_ITS | Encounter Summary ---
Author Organization [facility] Address [address] [place] [address] Care Team Providers Care Barrel Finisher Name Role Phone Marita Wetzel Primary Care Provider +1- [phone] Encounter Details Date Type Department Care Team (Late st Contact Info) Description 03/01/2024 Lab Requisition [facility] - Main Lab [address] [facility] [place] [address] Catalina Burr MD [address] [place], [place] [id number] End stage renal disease (CMS/HCC V24, CMS/HCC [...] (ABNORMAL) Ferritin (03/01/2024 6:56 AM EST) Pathologist [facility] Ferritin 2,736(H) 8 - 252 ng/mL LAB CHEMISTRY METHOD 03/01/2024 11:27 AM EST [facility] Blood Venous blood specimen / Unknown Venipuncture / Unknown 03/01/2024 6:56 AM EST 03/01/2024 9:07 AM EST Catalina Burr MD LAB BLOOD ORDERABLES Final Resul t Performing Organization Address City/[facility]/ZIP Co de Phone Number [facility] [address] [place] [address], [place] [phone] * (ABNORMAL) Iron (03/01/2024 6:56 AM EST) [facility] Iron 29(L) 40 - 150 mcg/dL LAB CHEMISTRY METHOD 03/01/2024 11:22 AM EST [facility] Blood Venous blood specimen / Unknown Venipuncture / Unknown 03/01/2024 6:56 AM EST 03/01/2024 9:07 AM EST us Catalina Burr MD LAB BLOOD ORDERABLES Final Resul t [facility] [address] [place] [address], [place] [phone] * Tacrolimus level (03/01/2024 6:56 AM EST) [facility] Tacrolimus Level 5.2 5.0 - 20.0 [...] developed and the performance characteristics determined by [facility]. This confirmation testing has not been cleared or approved by the FDA. The laboratory is regulated under CLIA as qualified to perform high-complexity testing. This test is used for patient testing purposes. It should not be regarded as investigational or for research. Test performed at [facility], [address] , [place] [address] Ashtyn Leigh MD, PhD - Audio Operator Blood Venous blood specimen / Unknown Venipuncture / Unknown 03/01/2024 6:56 AM EST 03/01/2024 9:07 AM EST us Catalina Burr MD LAB BLOOD ORDERABLES Final Resul t [facility] [address] [place] [address] * (ABNORMAL) Renal function panel (03/01/2024 6:56 AM EST) Sodium 140 133 - 145 mmol/L LAB CHEMISTRY METHOD 03/01/2024 11:04 AM [facility] Potassium 3.4(L) 3.5 - 5.5 mmol/L LAB CHEMISTRY METHOD 03/01/2024 11:04 AM [facility] Chloride 107 96 - 110 mmol/L LAB CHEMISTRY METHOD 03/01/2024 11:04 AM [facility] CO2 24 21 - 32 mmol/L LAB CHEMISTRY METHOD 03/01/2024 11:04 AM [facility] Anion Gap 9 3 - 11 LAB CHEMISTRY METHOD 03/01/2024 11:04 AM [facility] Glucose 107(H) 70 - 100 mg/dL LAB CHEMISTRY METHOD 03/01/2024 11:04 AM [facility] BUN 26(H) 5 - 25 mg/dL LAB CHEMISTRY METHOD 03/01/2024 11:04 AM [facility] Creatinine 2.88(H) 0.50 - 1.10 mg/dL LAB CHEMISTRY METHOD 03/01/2024 11:04 AM [facility] eGFR 18(L) >=60 mL/min/1. 73m2 LAB CHEMISTRY METHOD 03/01/2024 11:04 AM [facility] Comment:Calculation based on the Chronic Kidney Disease Epidemiology Collaboration (CKD-EPI) equation refit without adjustment for race. BUN/Creatinine Ratio 9.0 LAB CHEMISTRY METHOD 03/01/2024 11:04 AM [facility] Albumin 2.3(L) 3.2 - 5.0 g/dL LAB CHEMISTRY METHOD 03/01/2024 11:04 AM [facility] Calcium 8.9 8.5 - 10.5 mg/dL LAB CHEMISTRY METHOD 03/01/2024 11:04 AM [facility] Phosphorus 1.9(L) 2.5 - 4.5 mg/dL LAB CHEMISTRY METHOD 03/01/2024 11:04 AM [facility] Blood Venous blood specimen / Unknown Venipuncture / Unknown 03/01/2024 6:56 AM EST 03/01/2024 9:07 AM EST us Catalina Burr MD LAB BLOOD ORDERABLES Final Resul t [facility] [address] [place] [address], * (ABNORMAL) Complete blood count (03/01/2024 6:56 AM EST) [facility] WBC 10.2 4.8 - 10.8 K/mcL LAB HEMETOLOGY METHOD 03/01/2024 10:46 AM [facility] RBC 2.70(L) 3.80 - 4.80 M/mcL LAB HEMETOLOGY METHOD 03/01/2024 10:46 AM [facility] Hemoglobin 7.5(L) 11.5 - 16.0 g/dL LAB HEMETOLOGY METHOD 03/01/2024 10:46 AM [facility] Hematocrit 26.1(L) 35.0 - 47.0 % LAB HEMETOLOGY METHOD 03/01/2024 10:46 AM [facility] MCV 97.8 79.0 - 98.0 FL LAB HEMETOLOGY METHOD 03/01/2024 10:46 AM [facility] MCH 28.1 27.0 - 32.0 pcg LAB HEMETOLOGY METHOD 03/01/2024 10:46 AM [facility] MCHC 28.7(L) 32.0 - 37.0 g/dL LAB HEMETOLOGY METHOD 03/01/2024 10:46 AM [facility] RDW 16.7(H) 11.0 - 15.0 % LAB HEMETOLOGY METHOD 03/01/2024 10:46 AM [facility] Platelets 235 130 - 400 K/mcL LAB HEMETOLOGY METHOD 03/01/2024 10:46 AM [facility] MPV 10.8 7.0 - 11.0 FL LAB HEMETOLOGY METHOD 03/01/2024 10:46 AM [facility] NRBC 0.0 <1.0 % LAB HEMETOLOGY METHOD 03/01/2024 10:46 AM [facility] NRBC Absolute 0.00 <0.10 K/mcL LAB HEMETOLOGY METHOD 03/01/2024 10:46 AM EST [facility] Blood Venous blood specimen / Unknown Venipuncture / Unknown 03/01/2024 6:56 AM EST 03/01/2024 9:07 AM EST us Catalina Burr MD LAB BLOOD ORDERABLES Final Resul t [facility] [address] [place] [address], documented in this encounter Visit Diagnoses Diagnosis End stage renal disease ([facility] V24, [facility] V28) End stage renal disease Type 2 diabetes mellitus without complications ([facility] V24, [facility] V28) documented in this encounter Care Teams Barrel Finisher Relationship Specialty Start Date End Date Marita Wetzel DO [address] [place] [address] PCP - General 01/09/23 documented as of this encounter
--- OUTSIDE RECORDS SUMMARY | 2025-01-06 15:36 | XMS_ITS | Encounter Summary ---
Author Organization [facility] Address [address] [place] [address] Care Team Providers Care Lumber Stacker Driver Name Role Phone Marita Wetzel Primary Care Provider +1- [phone] Encounter Details Date Type Department Care Team (Late st Contact Info) Description 03/30/2024 Lab Requisition [facility] - Main Lab 299 [facility] [place] [address] Catalina Burr MD [address] [place] [address] Chronic embolism and thrombosis of unspecified vein; [...] LAB CHEMISTRY METHOD 03/31/2024 12:06 PM EST [facility] Blood Venous blood specimen / Unknown Venipuncture / Unknown 03/31/2024 9:23 AM EST 03/31/2024 11:25 AM EST Catalina Burr MD LAB BLOOD ORDERABLES Final Resul t Performing Organization Address [facility]/ZIP Co de Phone Number [facility] [address] [place] [address], [place] [phone] * (ABNORMAL) Ferritin (03/31/2024 9:23 AM EST) Ferritin 6,203(H) 8 - 252 ng/mL LAB CHEMISTRY METHOD 03/31/2024 12:10 PM EST [facility] Blood Venous blood specimen / Unknown Venipuncture / Unknown 03/31/2024 9:23 AM EST 03/31/2024 11:25 AM EST Catalina Burr MD LAB BLOOD ORDERABLES Final Resul t Performing Organization Address [facility]/ZIP Co de Phone Number [facility] [address] [place] [address], [place] [phone] documented in this encounter Visit Diagnoses Diagnosis Chronic embolism and thrombosis of unspecified vein Acute kidney failure, unspecified (CMS/HCC V24) Acute kidney failure, unspecified documented in this encounter Care Teams Lumber Stacker Driver Relationship Specialty Start Date End Date Marita Wetzel DO [address] [place] [address] PCP - General 01/09/23 documented as of this encounter
--- OUTSIDE RECORDS SUMMARY | 2025-01-06 15:36 | XMS_ITS | Encounter Summary ---
Author Organization [facility] Address [address] [place] [address] Care Team Providers Care Director Patient Financial Services Name Role Phone Marita Wetzel DO Primary Care Provider +1- [phone] Encounter Details Date Type Department Care Team (Late st Contact Info) Description 03/15/2024 Lab Requisition [facility] - Main Lab 299 [facility] [place] [phone] Catalina Burr MD [address] [place] [address] Acute kidney failure, unspecified (CMS/HCC V24); Chronic [...] documented in this encounter Care Teams Director Patient Financial Services Relationship Specialty Start Date End Date Marita Wetzel DO [address] [place], [place] PCP - General 01/09/23 documented as of this encounter
== END 2025-01-06 14:30 | disposition home or self-care (01) ==
LOC: HO.HOS 13:34
PROVIDERS: PCP Family Medicine; Visit Provider Physician Assistant
DX: S42.402A Unspecified fracture of lower end of left humerus, initial encounter for closed fracture (principal)
CPT/HCPCS: 99203

== ENCOUNTER → 2025-01-06 13:38 | Outpatient (BNV) | payer MEDICARE, OTHER, SELFPAY | PROVIDERS: Visit Provider Radiology Diagnostic Radiology | DX: M25.522 Pain in left elbow (principal) | CPT/HCPCS: 73080 ==

== ENCOUNTER 2025-01-19 11:53 | Emergency (ER) | payer MEDICARE, OTHER, SELFPAY ==
[2025-01-19 12:07] VITALS: BP 169/77; BP 170/82; PULSE 70; PULSE 75; RESP 20; TEMP 37.2; O2SAT 96; O2SAT 97
--- NOTE | 2025-01-19 12:09 | ECG_ITS ---
Test Reason : WEAKNESS Blood Pressure : */* mmHG Vent. Rate : 76 BPM Atrial Rate : 76 BPM P-R Int : 168 ms QRS Dur : 82 ms QT Int : 384 ms P-R-T Axes : 56 -32 -20 degrees QTcB Int : 432 ms Normal sinus rhythm Left axis deviation Low voltage QRS Cannot rule out Anteroseptal infarct (cited on or before 27-May-2024) Abnormal ECG When compared with ECG of 27-May-2024 18:44, Non-specific change in ST segment in Anterior leads T wave inversion now evident in Inferior leads Nonspecific T wave abnormality, worse in Anterolateral leads Referred By: Generic ED Physician Electronically Signed By: JIMMIE MONTALVO
--- NOTE | 2025-01-19 12:42 | ED.GENADULT ---
HPI - General Adult General Chief complaint: General Medical Stated complaint: LETHRGIC,WEAK,NAUSEA FROM DIALYSIS/NON TODAY Time Seen by Provider: 01/19/25 12:42 Source: patient and EMS Mode of arrival: EMS Limitations: no limitations History of Present Illness ED Provider: HPI narrative: 64-year-old woman on hemodialysis, Friday, full session on Friday today did not get her dialysis, she states she felt nauseous, she also has intermittent diarrhea no fevers or chills denies chest pain or shortness of breath. She states she feels better now but she also had some weakness. Related Data Home Medications ?Medication ?Instructions ?Recorded ?Confirmed acetaminophen 325 mg tablet 650 mg PO Q6H PRN Fever 04/07/24 05/28/24 carvedilol 25 mg tablet 25 mg PO BID 04/07/24 05/28/24 insulin lispro 200 unit/mL (3 mL) 2 - 10 sliding scale dose subcut 04/07/24 05/28/24 subcutaneous pen TID prednisone 10 mg tablet 10 mg PO BID 12/16/24 Previous Rx's ?Medication ?Instructions ?Recorded fluticasone propionate 115 2 puff inhalation Q12H 30 days #12 12/30/24 mcg-salmeterol 21 mcg/actuation grams HFA inhaler (Advair HFA) budesonide-formoterol HFA 160 2 puff inhalation BID 30 days 12/31/24 mcg-4.5 mcg/actuation aerosol #10.2 grams inhaler ondansetron 4 mg disintegrating 4 mg PO Q8H PRN nausea and 01/19/25 tablet vomiting #4 tabs Allergies Allergy/AdvReac Type Severity Reaction Status Date / Time codeine (CODEINE) Allergy Intermediate Hives and Verified 01/19/25 12:08 pruritus oxycodone (OXYCODONE) Allergy Intermediate HIVES Verified 01/19/25 12:08 Review of Systems Constitutional: Constitutional: Reports as per [facility] Past Medical History Medical History Pneumonia, community acquired Hyperkalemia Acute hyperglycemia HTN (hypertension) Mood disorder 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 Mother CHF (congestive heart failure) Social History Social History Household Members: Spouse Housing: House Do you presently have visiting nurse or other home services: Yes Alcohol intake: never Comment: patient is bedbound at this time Patient Tobacco Use Status: Never used Tobacco Smoked in Last 30 Days: No Use of substances other than those prescribed or required for medical reasons: No Advance Directives: Yes Advance Directives on File: Yes Advance Directives Date on File: 04/07/24 Patient : No service: Yes Physical Exam ED Vital Signs: Vital Signs - 24 hr 01/19/25 12:07 01/19/25 13:41 01/19/25 15:03 Temperature 99 F 98.4 F Pulse Rate 75 74 74 Respiratory Rate 20 16 16 Blood Pressure 169/77 H 137/78 137/78 Pulse Oximetry 97 100 100 Oxygen Delivery Method Room Air Room Air Room Air BMI result Body Mass Index 20.0 Const Other: General: ?Appears of her stated age, ? ?PERRLA, EOMI, moist oral mucosa, uvula midline ? Neck: Supple, no LAD ? ?CV: S1-S2 ? ?Resp: ?No wheezing rales rhonchi no stridor moving air well ? Abd: ?Bowel sounds are present, no tenderness no rebound no rigidity ? ?MSK: FROM, strength 5/5 all extremities ? Skin: Warm, dry, intact, no lower extremity edema ? ?Neuro: ?Alert and oriented x3, moving upper and lower extremities symmetrically, no obvious facial asymmetry noted, cranial nerves 2-12 intact Medications Administered Discontinued Medications Generic Name Dose Route Start Last Admin Trade Name Freq PRN Reason Stop Dose Admin Acetaminophen 975 mg 01/19/25 13:36 01/19/25 13:42 Acetaminophen 325 Mg Tablet PO 01/19/25 13:37 975 mg ONCE ONE Administration Medical Decision Making Medical Decision Making MDM Narrative: 1:10 PM 01/19/2025 (Dr. Ortiz Riley): Essentially patient presented and just really concentrated on the fact that she was nauseous I did not go to dialysis, the time my evaluation she states she is no longer nauseous, she did have any chest pain or shortness of breath, has a abdominal exam is completely benign did not feel further imaging such as CT is indicated this time, she does have history of says renal disease on dialysis with a history of anemia we will expand the workup and obtain ECG to make sure it is not ACS related, blood pressure is slightly hypotensive she is not tachycardic and no fevers 2:51 PM 01/19/2025 (Dr. Ortiz Riley): I discussed workup, is at bedside patient feels much better we will discharge, patient tolerated oral liquids without any issues, states she will eat at home Differential Diagnosis Differential Diagnoses: The differential diagnosis associated with the presentation includes (ACS, dehydration, anemia, viral syndrome, UTI, pneumonia, SBO, diverticulitis, gastroenteritis) Admission/Observation Consideration of admission/observation: Escalation of care including admission/observation considered Lab Data [facility] Lab Attestation statement: I reviewed the patient's lab results. 01/19/25 13:45 01/19/25 13:45 Labs: Lab Results 01/19/25 01/19/25 Range/Units 12:27 13:45 WBC 7.1 (4.8-10.8) X10*3/uL RBC 3.82 L (4.20-5.50) X10*6/uL Hgb 10.3 L (12.0-16.0) g/dl Hct 33.6 L (37.0-47.0) % MCV 88.0 (80.0-98.0) fL MCH 27.0 (27.0-33.0) pg MCHC 30.7 L (31.0-35.0) g/dl RDW 17.9 H (11.0-16.0) % Plt Count 169 D (160-400) X10*3/uL MPV 9.5 (9.4-12.3) fL Immature Gran % (Auto) 0.6 H (0.0-0.4) % Neut % (Auto) 81.8 H (45-73) % Lymph % (Auto) 9.1 L (20-40) % Bulloch % (Auto) 7.6 (2-11) % Eos % (Auto) 0.8 (0-4) % Baso % (Auto) 0.1 (0-2) % Lymph # (Auto) 0.6 L (1.2-4.9) X10*3/uL Bulloch # (Auto) 0.5 (0.1-1.2) X10*3/uL Eos # (Auto) 0.1 (0.0-0.4) X10*3/uL Baso # (Auto) 0.0 (0.0-0.2) X10*3/uL Abs Immat Gran (auto) 0.04 H (0.00-0.03) X10*3/uL Absolute Neuts (auto) 5.8 (2.0-8.3) x10*3/uL Absolute Nucleated RBC 0.000 (0.0-0.012) X10*3/uL Nucleated RBC % (auto) 0.0 (0.0-0.2) /100WBC Sodium 137 (135-145) mmol/L Potassium 4.6 (3.3-5.1) mmol/L Chloride 101 (96-108) mmol/L Carbon Dioxide 25 (22-29) mmol/L Anion Gap 16 (12-20) BUN 34 H (9-16) mg/dL Creatinine 5.68 H* (0.5-1.4) mg/dL Estim Creat Clear Calc 8.8 Estimated GFR 8 Random Glucose 136 H (60-115) mg/dL Calcium 8.9 D (8.4-10.2) mg/dL Total Bilirubin 0.7 (0.0-1.0) mg/dL AST 15 (5-31) U/L ALT < 6 (0-31) U/L Alkaline Phosphatase 134 H (39-117) U/L Total Protein 8.2 H (6.5-8.0) g/dL Albumin 3.4 L (3.5-5.0) g/dL Lipase 6 L (8-78) U/L COVID-19 (SADE) Negative (Negative) COVID-19 Clin Com See Note Influenza Type A (SANA) Negative (Negative) Influenza Type B (SANA) Negative (Negative) Influenza A & B Note See Note Independent Interpretation I performed an independent interpretation of an: EKG (76 beats per minute, otherwise normal ECG without dysrhythmia, AV colton blocks or ST-T changes to suspect underlying ACS, my independent interpretation) Independent Historian Clinical information obtained from an independent historian. History obtained from or confirmed by: EMS Discharge Plan Discharge Clinical Impression: Nausea alone, ESRD on hemodialysis Patient Disposition: Home, Self-Care Additional Instructions: As discussed I did make sure you are not anemic requiring blood transfusion your hemoglobin hematocrit is 10.3 and 33.6, you do not have any abnormal electrolytes such as potassium, and you should do well by having dialysis on Friday, in the meantime if anything else is evolving you feel worse please do not hesitate to come back to the ER for re-evaluation. Prescriptions: New ondansetron 4 mg tablet,disintegrating 4 mg PO Q8H PRN (Reason: nausea and vomiting) Qty: 4 0RF No Action fluticasone propion-salmeterol [Advair HFA] 115-21 mcg/actuation HFA aerosol inhaler 2 puff inhalation Q12H 30 Days Qty: 12 11RF budesonide-formoterol 160-4.5 mcg/actuation HFA aerosol inhaler 2 puff inhalation BID 30 Days Qty: 10.2 11RF carvedilol 25 mg Tablet 25 mg PO BID Rx Instructions: must administer with a meal/food acetaminophen 325 mg Tablet 650 mg PO Q6H PRN (Reason: Fever) insulin lispro 200 unit/mL (3 mL) Insulin Pen 2 - 10 sliding scale dose SUBCUT TID Rx Instructions: if 150-199 = 2 units, 200-249 = 4 units, 250-299 = 6 units, 300-349 = 8 units, 350-399 = 10 units, 400+ call prednisone 10 mg tablet 10 mg PO BID Interventions: ED Discharge Assessment Last Done: 01/19/25 15:03 Print Language: Mongolian
[2025-01-19 12:50] LABS: COVID-19 Test Negative (Negative); IDNOW Serial# 08D9AD1C; IDNOW Serial# 6674DD1D; Influenza B2 Negative (Negative)
[2025-01-19 13:41] VITALS: BP 137/78; PULSE 74; RESP 16; O2SAT 100
--- OUTSIDE RECORDS SUMMARY | 2025-01-19 13:44 | XMS_ITS | Encounter Summary ---
Author Organization [employer] Address [address] [facility] 7t [place] [address] Care Team Providers Care Business Services Representative Name Role Phone Marita Wetzel DO Primary Care Provider [phone] Carmen Becker PharmD Unavailable [phone] Encounter Details Date Type Department Care Team ([facility] st Contact Info) Description 04/29/2023 Telephone [facility] MEDICINE [address] [place] [address] Marita Wetzel DO [address] [place], [place] [phone] Social History Tobacco Use Types Packs/Day Years [...] Care Team (Late st Contact Info) Description 02/17/2025 10:00 AM EDT Medication Management [facility] MEDICINE [address] [place] [address] Carmen Becker PharmD [address] [place] [address] documented as of this encounter Visit Diagnoses Not on filedocumented in this encounter Additional Health Concerns Assessment Noted Time PHQ-9 Depression Total Score: 0 10/09/19 23 9:31 AM EDT documented as of this encounter Care Teams Business Services Representative Relationship Specialty Start Date End Date Marita Wetzel DO [address] [place] [address] PCP - General Family Medicine 04/21/18 Carmen Becker PharmD [address] [place] [address] Pharmacist Internal Medicine 07/21/23 01/21/24 [facility] 05/22/24 documented as of this encounter
--- OUTSIDE RECORDS SUMMARY | 2025-01-19 13:44 | XMS_ITS | Encounter Summary ---
Author Organization [facility] Address [address] [place] [address] Care Team Providers Care [employer] Hospitalist Name Role Phone Marita Wetzel DO Primary Care Provider [phone] Encounter Details Date Type Department Care Team (Late st Contact Info) Description 05/30/2024 Lab Requisition [facility] - Main Lab [address] [facility] [place] [phone] Marily Gordillo MD [address] [place] [phone] Chronic embolism and thrombosis of unspecified vein; [...] unspecified documented in this encounter Care Teams [employer] Hospitalist Relationship Specialty Start Date End Date Marita Wetzel DO [address] [place], [place] PCP - General 01/09/23 documented as of this encounter
--- OUTSIDE RECORDS SUMMARY | 2025-01-19 13:44 | XMS_ITS | Encounter Summary ---
Author Organization [employer] Address [address] [facility] 7t [place] [address] Care Team Providers Care Art Supervisor Name Role Phone Marita Wetzel DO Primary Care Provider [phone] Carmen Becker PharmD Unavailable Encounter Details Date Type Department Care Team ([facility] Contact Info) Description 10/14/[address] [facility] MEDICINE [address] [place] [address] Marita Wetzel DO [address] [place] [address] Social History Tobacco Use Types Packs/Day Years [...] Upcoming Encounters Date Type Department Care Team ([facility] Contact Info) Description 02/17/2025 10:00 AM EDT Medication Management [facility] MEDICINE [address] [place] [address] Carmen Becker PharmD [address] [place] [address] documented as of this encounter Visit Diagnoses Not on filedocumented in this encounter Additional Health Concerns Assessment Noted Time PHQ-9 Depression Total Score: 0 10/09/19 23 9:31 AM EDT documented as of this encounter Care Teams Art Supervisor Relationship Specialty Start Date End Date Marita Wetzel DO [address] [place], [place] [phone] PCP - General Family Medicine 04/21/18 Carmen Becker PharmD [address] [place] [address] Pharmacist Internal Medicine 07/21/23 01/21/24 [facility] 05/22/24 documented as of this encounter
--- OUTSIDE RECORDS SUMMARY | 2025-01-19 13:44 | XMS_ITS | Encounter Summary ---
Author Organization [facility] [place], Address [address] [place] [address] Phone Care Team Providers Care Fire Fighter Name Role Phone Marita Wetzel DO Primary Care Provider Unava ilable Encounter Details Date Type Department Care Team (Late st Contact Info) Description 05/01/2023 Documentation Only [facility] [address] [place] [address] [place], [place] [address] [place] [phone] Social History Tobacco Use Types Packs/Day Years [...] Services Of [facility] - Vascular Access Center [address] [place] [address] 03/08/2025 12:30 PM EST Scheduled Only [facility] - V[facility] Center [address] [place] [address] 07/12/2025 1:00 PM EDT Scheduled Only [facility] - [facility] [address] [place] [phone] Scheduled Orders Name Type Priority Associated Diagnoses [...] Primary documented in this encounter Care Teams Fire Fighter Relationship Specialty Start Date End Date Marita Wetzel DO [address] [place] [address] PCP - General Family Medicine 11/14/22 documented as of this encounter
--- OUTSIDE RECORDS SUMMARY | 2025-01-19 13:44 | XMS_ITS | Encounter Summary ---
Author Organization [facility] [place], Address [address] [place] [address] Phone Care Team Providers Care Education And Training Manager Name Role Phone Marita Wetzel DO Primary Care Provider Unava ilable Encounter Details Date Type Department Care Team (Late st Contact Info) Description 04/02/2023 Documentation Only [facility] [place] [phone] Bernardo Doty MD [address] [address] [place] [phone] Social History Tobacco Use Types Packs/Day Years [...] Support [facility] Vascular Access Center [address] [place] [address] 03/08/2025 12:30 PM EST Scheduled Only [facility] V[facility] Access Center [address] [address] 07/12/2025 1:00 PM EDT Scheduled Only [facility] [address] [place] [address] documented as of this encounter Visit Diagnoses Not on filedocumented in this encounter Care Teams Education And Training Manager Relationship Specialty Start Date End Date Marita Wetzel DO [address] [place] [address] PCP - General Family Medicine 11/14/22 documented as of this encounter
--- OUTSIDE RECORDS SUMMARY | 2025-01-19 13:44 | XMS_ITS | Encounter Summary ---
Author Organization [facility] [place], Address [address] [place] [address] Phone Care Team Providers Care Pedal Assembler Name Role Phone Marita Wetzel DO Primary Care Provider Unava ilable Encounter Details Date Type Department Care Team (Late st Contact Info) Description 12/06/2022 Documentation Only [facility] [address] [place] [address] [place], [place] [address] [place] [phone] Social History Tobacco Use Types Packs/Day Years [...] Support [facility] - Vascular Access Center [address] [place] [address] 03/08/2025 12:30 PM EST Scheduled Only [facility] - Vascular Access Center [address] [place] [address] 07/12/2025 1:00 PM EDT Scheduled Only [facility] [place] - [facility] [address] [place] [address] documented as of this encounter Visit Diagnoses Not on filedocumented in this encounter Care Teams Pedal Assembler Relationship Specialty Start Date End Date Marita Wetzel DO [address] [place] [address] PCP - General Family Medicine 11/14/22 documented as of this encounter
--- OUTSIDE RECORDS SUMMARY | 2025-01-19 13:44 | XMS_ITS | Encounter Summary ---
Author Organization [facility] Address [address] [place] [address] Phone Care Team Providers Care Flight Engineer Name Role Phone Marita Wetzel DO Primary Care Provider Unava ilable Encounter Details Date Type Department Care Team (Late st Contact Info) Description 09/26/2022 Documentation Only [facility] [address] [place] [phone] Candace Adam PA [address] [place] [address] [place] [address] Social History Tobacco Use Types Packs/Day Years [...] Of [facility] Vascular Access Center [address] [place] [address] [place] [address] 03/08/2025 12:30 PM EST Scheduled Only [facility] Vascular Access [address] [place] [address] 07/12/2025 1:00 PM EDT Scheduled Only [facility] [place] - [facility] Center [address] [place] [address] documented as of this encounter Visit Diagnoses Not on filedocumented in this encounter Care Teams Flight Engineer Relationship Specialty Start Date End Date Marita Wetzel DO [address] [place] [address] PCP - General Family Medicine 11/14/22 documented as of this encounter
--- OUTSIDE RECORDS SUMMARY | 2025-01-19 13:44 | XMS_ITS | Encounter Summary ---
Author Organization [facility] Address [address] [place] [address] Phone Care Team Providers Care Electronic Imaging System Operator Name Role Phone Marita Wetzel DO Primary Care Provider Unava ilable Encounter Details Date Type Department Care Team (Late st Contact Info) Description 12/09/2022 Documentation Only [facility] [address] [place] [phone] Candace Adam PA [address] [place] [address] [place] [address] Social History Tobacco Use Types Packs/Day Years [...] Support [facility] Vascular Access Center [address] [place] [address] [place] [address] 03/08/2025 12:30 PM EST Scheduled Only [facility] Vascular Access [address] [place] [address] 07/12/2025 1:00 PM EDT Scheduled Only [facility] [place] - [facility] [address] [place] [address] documented as of this encounter Visit Diagnoses Not on filedocumented in this encounter Care Teams Electronic Imaging System Operator Relationship Specialty Start Date End Date Marita Wetzel DO [address] [place] [address] PCP - General Family Medicine 11/14/22 documented as of this encounter
--- OUTSIDE RECORDS SUMMARY | 2025-01-19 13:44 | XMS_ITS | Encounter Summary ---
Author Organization [employer] Address [address] [facility] 7t [place] [address] Care Team Providers Care Woven Wood Shade Assembler Name Role Phone Damari Marita Primary Care Provider [phone] Encounter Details Date Type Department Care Team ([facility] st Contact Info) Description 12/08/2024 Orders Only [facility] MEDICINE [address] [place] [address] Cherry Landa MD [address] [place] [address] Social History Tobacco Use Types Packs/Day Years [...] Description 02/17/2025 10:00 AM EDT Medication Management [facility] MEDICINE [address] [place], [place] [phone] Carmen Becker PharmD [address] [place] [address] documented as of this encounter Goals Goal [...] documented as of this encounter Care Teams Woven Wood Shade Assembler Relationship Specialty Start Date End Date Marita Wetzel DO [address] [place] [address] PCP - General Family Medicine 04/21/18 [facility] 05/22/24 documented as of this encounter
--- OUTSIDE RECORDS SUMMARY | 2025-01-19 13:44 | XMS_ITS | Encounter Summary ---
Author Organization [facility] [place], Address [address] [place] [address] Phone Care Team Providers Care Pipe Liner Name Role Phone Marita Wetzel DO Primary Care Provider Unava ilable Encounter Details Date Type Department Care Team (Late st Contact Info) Description 01/21/2024 Documentation Only [facility] [address] [place] [address] Pauline Aguayo [address] [place] [phone] Social History Tobacco Use Types Packs/Day Years [...] Of [facility] Vascular Access Center [address] [place] [address] [place] [address] 03/08/2025 12:30 PM EST Scheduled Only [facility] Vascular Access Center [address] [place] [address] 07/12/2025 1:00 PM EDT Scheduled Only [facility] [place] - [facility] Center [address] [place] [address] documented as of this encounter Visit Diagnoses Not on filedocumented in this encounter Care Teams Pipe Liner Relationship Specialty Start Date End Date Marita Wetzel DO [address] [place] [address] PCP - General Family Medicine 11/14/22 documented as of this encounter
--- OUTSIDE RECORDS SUMMARY | 2025-01-19 13:44 | XMS_ITS | Encounter Summary ---
Author Organization [employer] Address [address] [facility] 7t [place] [address] Care Team Providers Care [employer] Media Specialist Name Role Phone Marita Wetzel DO Primary Care Provider [phone] Carmen Becker PharmD Unavailable [phone] Reason for Visit * Reason Onset Date Comments Prior Authorization 04/25/2023 [employer] Encounter Details Date Type Department Care Team (Late st Contact Info) Description 04/25/2023 Telephone [facility] MEDICINE [address] [place] [address] Marita Wetzel DO [address] [place] [address] Prior Authorization ([employer]) Social History Tobacco [...] Description 02/17/2025 10:00 AM EDT Medication Management [facility] MEDICINE [address] [place], [place] [phone] Carmen Becker, PharmD [address] [place] [address] documented as of this encounter Visit Diagnoses Not on filedocumented in this encounter Additional Health Concerns Assessment Noted Time PHQ-9 Depression Total Score: 0 10/09/19 23 9:31 AM EDT documented as of this encounter Care Teams High School Library Media Specialist Relationship Specialty Start Date End Date Marita Wetzel DO [address] [place] [address] PCP - General Family Medicine 04/21/18 Carmen Becker PharmD [address] [place] [address] Pharmacist Internal Medicine 07/21/23 01/21/24 [facility] 05/22/24 documented as of this encounter
--- OUTSIDE RECORDS SUMMARY | 2025-01-19 13:44 | XMS_ITS | Encounter Summary ---
Author Organization [facility] Address [address] [place] [address] Phone Care Team Providers Care Enrollment Representative Name Role Phone Marita Wetzel DO Primary Care Provider Unava ilable Encounter Details Date Type Department Care Team (Late st Contact Info) Description 01/01/2024 Documentation Only [facility] [address] [place] [address] [place], [place], [place] [address] [place] [phone] Social History Tobacco Use Types Packs/Day Years [...] [facility] [address] [place] [address] 03/08/2025 12:30 PM EST Scheduled Only [facility] [address] [place] [address] 07/12/2025 1:00 PM EDT Scheduled Only [facility] [place] - [facility] Center [address] [place] [phone] documented as of this encounter Visit Diagnoses Not on filedocumented in this encounter Care Teams Enrollment Representative Relationship Specialty Start Date End Date Marita Wetzel DO [address] [place] [address] PCP - General Family Medicine 11/14/22 documented as of this encounter
--- OUTSIDE RECORDS SUMMARY | 2025-01-19 13:44 | XMS_ITS | Clinical Summary ---
Author Organization [facility] Address [address] [facility] [address] [place] [address] Phone Care Team Providers Care Enamel Finisher Name Role Phone Bernardo Doty MD Unavailable Marita Wetzel DO Primary Care Provider [phone] Allergies Active Allergy Reactions Criticality Noted Date [...] mg by mouth daily. 08/26/2021 Active cloNIDine ([id number] ) 0.2 mg/[address] 1 patch [...] EST) SODIUM 135 133 - 146 mmol/L [facility] POTASSIUM 5.9(H) 3.3 - 5.1 mmol/L [facility] CHLORIDE 96 96 - 108 mmol/L [facility] CO2 27 21 - 35 mmol/L [facility] BUN 45(H) 6 - 19 mg/dL [facility] CREATININE 3.40(H) 0.5 - 1.5 mg/dL [facility] GLUCOSE 186(H) 70 - 99 mg/dL [facility] ALBUMIN 2.6(L) 3.9 - 4.8 g/dL [facility] TOTAL PROTEIN 6.2(L) 6.5 - 8.0 g/dL [facility] CALCIUM 9.0 8.4 - 10.3 mg/dL [facility] ALKALINE PHOSPHATASE 74 39 - 117 U/L [facility] TOTAL BILIRUBIN <0.2 0.0 - 1.2 mg/dL [facility] AST 9 0 - 37 U/L [facility] ALT 7 0 - 40 U/L [facility] GLOBULIN 3.6 1 - 4.8 g/dL [facility] EGFR 15(L) >59 mL/min/1.7 3m2 [facility] Comment:Estimated glomerular filtration rate calculated using the CKD-EPI refit equation. ANION GAP 18 10 - 20 mmol/L [facility] Blood 05/03/2024 3:27 PM EST 05/03/2024 8:39 PM EST us Twila CRUZ LAB BLOOD ORDERABLES Final Resu lt [address] [address] * Hepatitis C antibody, qualitative (11/26/2021 4:32 PM EDT) HCV Nonreactive Nonreactive [facility] Comment: 11/26/2021 4:32 PM EDT 11/26/2021 5:00 PM EDT us Manny Addison MD, PhD LAB BLOOD ORDERABLES Final Result [address] [address] * (ABNORMAL) Hemoglobin A1c (11/26/2021 4:32 PM EDT) HEMOGLOBIN A1C 7.8(H) 4.2 - 5.6 % [facility] Comment: HbA1c levels [...] BLOOD ORDERABLES Final Result Performing Organization Address [facility] de Phone Number [address] [address] * (ABNORMAL) Lipid panel (11/26/2021 4:32 PM EDT) CHOLESTEROL 157 <200 mg/dL [facility] TRIGLYCERIDES 214(H) 35 - 150 mg/dL [facility] HDL 26(L) 40 - 80 mg/dL [facility] CALCULATED LDL 88 50 - 129 mg/dL [facility] VLDL 43(H) <31 mg/dL [facility] CARDIAC RISK RATIO 6.0(H) 0.0 - 4.0 [facility] 11/26/2021 4:32 PM EDT 11/26/2021 5:00 PM EDT Manny Addison MD, PhD LAB BLOOD ORDERABLES Final Result Performing Organization Address [facility] Co de Phone Number [address] [place] [address] from Last 3 Months or Most Recently Relevant to Health Maintenance Insurance MEDICARE PART A & B [employer] MEDICARE SUPPLEMENT MEDICARE PART A & B [employer] MEDICARE SUPPLEMENT MEDICARE PART A & B [facility] MEDICARE SUPPLEMENT MEDICARE PART A & B [employer] MEDICARE SUPPLEMENT MEDICARE PART A & B [employer] MEDICARE SUPPLEMENT MEDICARE PART A & B [employer] MEDICARE SUPPLEMENT MEDICARE PART A & B Care Teams Enamel Finisher Relationship Specialty Start Date End Date DamariMarita [address] [place] [address] PCP - General Family Medicine 03/28/22 Bernardo Doty MD [address] [address] Nephrology 11/13/21 Additional Source Comments The information contained in this document represents components of the legal health record. It is not the complete legal health record.[facility]
--- OUTSIDE RECORDS SUMMARY | 2025-01-19 13:44 | XMS_ITS | Encounter Summary ---
Author Organization [employer] Address [address] [place] [address] [address] [place] [address] Care Team Providers Care Software Support Specialist Name Role Phone Mary JaneMarita yousif Primary Care Provider [phone] Carmen Becker PharmD Unavailable [phone] Encounter Details Date Type Department Care Team (Late st Contact Info) Description 12/11/2022 Orders Only [facility] PEDIATRICS [address] [place] [address] Heather Nesbitt, RN [address] [place] [address] Social History Tobacco Use Types Packs/Day Years [...] Description 02/17/2025 10:00 AM EDT Medication Management [facility] MEDICINE [address] [place] [address] PuiaJonathonCarmen, PharmD [address] [place] [address] documented as of this encounter Visit Diagnoses Not on filedocumented in this encounter Additional Health Concerns Assessment Noted Time PHQ-9 Depression Total Score: 0 10/09/19 23 9:31 AM EDT documented as of this encounter Care Teams Software Support Specialist Relationship Specialty Start Date End Date Marita Wetzel DO [address] [place] [address] PCP - General Family Medicine 04/21/18 Carmen Becker PharmD [address] [place] [address] Pharmacist Internal Medicine 07/21/23 01/21/24 [facility] 05/22/24 documented as of this encounter
--- OUTSIDE RECORDS SUMMARY | 2025-01-19 13:44 | XMS_ITS | Encounter Summary ---
Author Organization [facility] [place], Address [address] [place] [address] Phone Care Team Providers Care Out And Out Cigar Maker Hand Name Role Phone Marita Wetzel DO Primary Care Provider Unava ilable Encounter Details Date Type Department Care Team (Late st Contact Info) Description 05/20/2023 Documentation Only [facility] [address] [place] [address] [place], [place], [place] [address] [place] [address] Social History Tobacco Use Types Packs/Day Years [...] Care And Transplant Services Of [facility] - Vascular Access Center [address] [place] [address] 03/08/2025 12:30 PM EST Scheduled Only [facility] - Vascular Access Center [address] [place] [address] 07/12/2025 1:00 PM EDT Scheduled Only [facility] [place] - V[facility] Center [address] [place] [address] documented as of this encounter Visit Diagnoses Not on filedocumented in this encounter Care Teams Out And Out Cigar Maker Hand Relationship Specialty Start Date End Date Marita Wetzel DO [address] [place] [address] PCP - General Family Medicine 11/14/22 documented as of this encounter
--- OUTSIDE RECORDS SUMMARY | 2025-01-19 13:44 | XMS_ITS | Encounter Summary ---
Author Organization [facility] Address [place] [address] Phone Care Team Providers Care Lean Leader Name Role Phone Marita Wetzel DO Primary Care Provider Unava ilable Encounter Details Date Type Department Care Team (Late st Contact Info) Description 03/18/2023 Documentation Only [facility] [address] [place] [address] Srinivas Agrawal MD [address] [place] [address] [place] [phone] Social History Tobacco Use Types Packs/Day Years [...] Services Of [facility] Vascular Access Center [address] [place] [address] [place] [phone] 03/08/2025 12:30 PM EST Scheduled Only [facility] Vascular Access [address] [place] [address] 07/12/2025 1:00 PM EDT Scheduled Only [facility] [place] - V[facility] Access Center [address] [place] [address] documented as of this encounter Visit Diagnoses Not on filedocumented in this encounter Care Teams Lean Leader Relationship Specialty Start Date End Date Marita Wetzel DO [address] [place] [address] PCP - General Family Medicine 11/14/22 documented as of this encounter
--- OUTSIDE RECORDS SUMMARY | 2025-01-19 13:44 | XMS_ITS | Encounter Summary ---
Author Organization [facility] Address [address] [place] [address] Phone Care Team Providers Care Video Game Script Writer Name Role Phone Marita Wetzel DO Primary Care Provider Unava ilable Encounter Details Date Type Department Care Team (Late st Contact Info) Description 04/18/2023 Documentation Only [facility] [address] [facility] [address] [facility] [place] [phone] Jerod Adames DO [address] [facility] [place] [phone] Social History Tobacco Use Types Packs/Day Years [...] [address] [place] [address] 03/08/2025 12:30 PM EST Scheduled Only [facility] Vascular Access Center [address] [facility] [address] [facility] [place] [address] 07/12/2025 1:00 PM EDT Scheduled Only [facility] [place] - V[facility] Access Center [address] [place] [address] documented as of this encounter Visit Diagnoses Not on filedocumented in this encounter Care Teams Video Game Script Writer Relationship Specialty Start Date End Date Marita Wetzel DO 230 [place] [address] PCP - General Family Medicine 11/14/22 documented as of this encounter
--- OUTSIDE RECORDS SUMMARY | 2025-01-19 13:44 | XMS_ITS | Encounter Summary ---
Author Organization [facility] Address [address] [place] [address] Phone Care Team Providers Care Heel Varnisher Name Role Phone Marita Wetzel DO Primary Care Provider Unava ilable Encounter Details Date Type Department Care Team (Late st Contact Info) Description 12/31/2022 Documentation Only [facility] Of [address] [place] [address] Candace Adam PA [address] [place] [address] [place] [address] Social History Tobacco Use Types Packs/Day Years [...] Of [facility] Vascular Access Center [address] [place] [address] [place] [address] 03/08/2025 12:30 PM EST Scheduled Only [facility] Vascular Access [address] [place] [address] 07/12/2025 1:00 PM EDT Scheduled Only [facility] [place] - V[facility] Access Center [address] [place] [address] documented as of this encounter Visit Diagnoses Not on filedocumented in this encounter Care Teams Heel Varnisher Relationship Specialty Start Date End Date Marita Wetzel DO [address] [place] [address] PCP - General Family Medicine 11/14/22 documented as of this encounter
--- OUTSIDE RECORDS SUMMARY | 2025-01-19 13:44 | XMS_ITS | Encounter Summary ---
Author Organization [employer] Address [address] [facility] 7t [place] [address] Care Team Providers Care Cafe Helper Name Role Phone Marita Wetzel DO Primary Care Provider + [phone] Reason for Visit * Reason Comments Med Change Request Encounter Details Date Type Department Care Team ([facility] st Contact Info) Description 12/08/2024 Refill [facility] [address] [place] [address] Cherry Landa MD 230 [place] [address] Type 2 diabetes mellitus with stage 3b chronic kidney disease, with long-term current use of insulin ([facility]) Social History Tobacco Use Types [...] Description 02/17/2025 10:00 AM EDT Medication Management [facility] [address] [place], [place] [phone] Carmen Becker PharmD 230 [place], [place] [phone] documented as of this encounter Goals Goal [...] disease, with long-term current use of insulin (HCC) documented in this encounter Additional Health Concerns Assessment Noted Time PHQ-9 Depression Total Score: 0 10/09/19 23 9:31 AM EDT documented as of this encounter Care Teams Cafe Helper Relationship Specialty Start Date End Date Marita Wetzel DO 230 [place], [place] [phone] PCP - General Family Medicine 04/21/18 [facility] 05/22/24 documented as of this encounter
--- OUTSIDE RECORDS SUMMARY | 2025-01-19 13:44 | XMS_ITS | Encounter Summary ---
Author Organization [employer] Address [address] [facility] 7 [place] [address] Care Team Providers Care Cook Taco Name Role Phone Marita Wetzel DO Primary Care Provider + [phone] Reason for Visit * Reason Onset Date Comments Med Refill 06/25/2024 Encounter Details Date Type Department Care Team (Late st Contact Info) Description 06/25/2024 Telephone [facility] MEDICINE [address] [place] [address] Marita Wetzel DO 230 [place], [place] [phone] Med Refill Social History Tobacco Use Types [...] 1 g tablet To be sent to: [facility]/pharmacy [address] [place] [address] *states it was prescribed before documented in this encounter Plan of Treatment Upcoming Encounters Date Type Department Care Team (Late st Contact Info) Description 02/17/2025 10:00 AM EDT Medication Management [facility] MEDICINE [address] [place] [address] Carmen Becker, PharmD [address] [place] [address] documented as of this encounter Goals Goal Patient Goal Type Associated Problems Recent Progress Patient-Stated? Author Hemoglobin A1c < 7 Result Component 6.4( 11:38 AM EDT) No Jonathon Beckeryssa, PharmD Record [...] documented as of this encounter Care Teams Cook Taco Relationship Specialty Start Date End Date Marita Wetzel DO [address] [place] [address] PCP - General Family Medicine 04/21/18 [facility] 05/22/24 documented as of this encounter
--- OUTSIDE RECORDS SUMMARY | 2025-01-19 13:44 | XMS_ITS | Encounter Summary ---
Author Organization [facility] [place], Address [address] [place] [address] Phone Care Team Providers Care Warp Doffer Name Role Phone Marita Wetzel DO Primary Care Provider Unava ilable Reason for Visit * Reason Comments Med Refill Encounter Details Date Type Department Care Team (Late Contact Info) Description 12/06/2020 Refill [facility] [place] [address] [place] [phone] Bernardo Doty MD [address] [facility] [place] [address] Social History Tobacco Use Types Packs/Day Years [...] Services Of [facility] Vascular Access Center [address] [place] [address] 03/08/2025 12:30 PM EST Scheduled Only [facility] Vascular Access Center [address] [place] [address] 07/12/2025 1:00 PM EDT Scheduled Only [facility] [place] - V[facility] Access Center [address] [place] [address] documented as of this encounter Visit Diagnoses Not on filedocumented in this encounter Care Teams Warp Doffer Relationship Specialty Start Date End Date Marita Wetzel DO [address] [place] [address] PCP - General Family Medicine 11/14/22 documented as of this encounter
--- OUTSIDE RECORDS SUMMARY | 2025-01-19 13:44 | XMS_ITS | Encounter Summary ---
Author Organization [facility] Address [address] [place] [address] Phone Care Team Providers Care Water Pump Assembler Name Role Phone Marita Wetzel DO Primary Care Provider Unava ilable Encounter Details Date Type Department Care Team (Late st Contact Info) Description 03/18/2023 Documentation Only [facility] [address] [place] [phone] Bernardo Doty MD [address] [place] [address] [place] [phone] Social History Tobacco Use Types Packs/Day Years [...] And Transplant Services Of [facility] - Vascular Access Center [address] [place] [address] 03/08/2025 12:30 PM EST Scheduled Only [facility] Vascular Access Center [address] [place] [place] [address] 07/12/2025 1:00 PM EDT Scheduled Only [facility] [place] - Vascular Access Center [address] [place] [address] documented as of this encounter Visit Diagnoses Not on filedocumented in this encounter Care Teams Water Pump Assembler Relationship Specialty Start Date End Date Marita Wetzel DO [address] [place] [address] PCP - General Family Medicine 11/14/22 documented as of this encounter
--- OUTSIDE RECORDS SUMMARY | 2025-01-19 13:44 | XMS_ITS | Encounter Summary ---
Author Organization [facility] [place], Address [address] [facility] [place] [address] Phone Care Team Providers Care Tool Maker Apprentice Name Role Phone Marita Wetzel DO Primary Care Provider Unava ilable Reason for Visit * Reason Comments Med Refill Encounter Details Date Type Department Care Team (Late Contact Info) Description 06/30/2024 Refill [facility] [place] [address] [place] [address] Srinivas Agrawal MD [address] [facility] [place] [phone] Social History Tobacco Use Types Packs/Day Years [...] Of [facility] Vascular Access Center [address] [facility] [place] [address] 03/08/2025 12:30 PM EST Scheduled Only [facility] Vascular Access Center [address] [facility] [place] [address] 07/12/2025 1:00 PM EDT Scheduled Only [facility] [place] - V[facility] Access Center [address] [place] [address] [place] [address] documented as of this encounter Procedures Procedure Name Priority Date/Time Associated Diagnosis Comments HEMATOLOGY Routine 06/30/2024 documented in this encounter Results * (ABNORMAL) HEMATOLOGY (06/30/2024) Hemoglobin 6.3(L) 12.0 - 16.0 g/dL [facility] Hemoglobin x 3 18.9(L) 36.0 - 48.0 % [facility] 06/30/2024 07/01/2024 10: 49 AM EDT Narrative [facility] - 07/01/2024 Unless otherwise specified, test(s) performed at: [facility], [address] [place] [address] SHIP PILOT: Dwayne Fuentes M.D. For any questions, please call customer service at FREQUENCY:OTHER Resulting Agency Comment Specimen source: Blood us Srinivas Agrawal MD LAB BLOOD ORDERABLES Final Result [facility] See order comments or contact performing lab Unknown, [place] documented in this encounter Visit Diagnoses Not on filedocumented in this encounter Care Teams Tool Maker Apprentice Relationship Specialty Start Date End Date Marita Wetzel DO [address] [place] [address] PCP - General Family Medicine 11/14/22 documented as of this encounter
--- OUTSIDE RECORDS SUMMARY | 2025-01-19 13:44 | XMS_ITS | Encounter Summary ---
Author Organization [facility] Address [address] [place] [address] Care Team Providers Care Rag Collector Name Role Phone Marita Wetzel DO Primary Care Provider [phone] Encounter Details Date Type Department Care Team (Late st Contact Info) Description 05/31/2024 Lab Requisition [facility] - Main Lab [address] [facility] [place] [phone] Marily Gordillo MD [address] [place] [address] Acute kidney failure, unspecified (CMS/HCC [...] unspecified documented in this encounter Care Teams Rag Collector Relationship Specialty Start Date End Date Marita Wetzel DO [address] [place], [place] PCP - General 01/09/23 documented as of this encounter
--- OUTSIDE RECORDS SUMMARY | 2025-01-19 13:44 | XMS_ITS | Encounter Summary ---
Author Organization [employer] Address [address] [facility] 7[address] [place] [address] Care Team Providers Care Human Relations Manager Name Role Phone Marita Wetzel DO Primary Care Provider + [phone] Reason for Visit * Reason Onset Date Comments Hospital Follow-up 06/11/2024 Encounter Details Date Type Department Care Team ([facility] st Contact Info) Description 06/11/2024 Telephone [facility] MEDICINE [address] [place] [address] Marita Wetzel DO [address] [place], [place] [phone] Hospital Follow-up Social History Tobacco Use Types [...] from pt requesting a HDF appt. Hospital: [facility] Date of admission: 05/31/2024 Discharge date: ------ Diagnosed:kidney failure *Send message to [facility] Clinical Care Coordinators documented in this encounter Plan of Treatment Upcoming Encounters Date Type Department Care Team (Late st Contact Info) Description 02/17/2025 10:00 AM EDT Medication Management [facility] MEDICINE [address] [place] [address] Carmen Becker, PharmD [address] [place] [address] documented as of this encounter Goals Goal [...] documented as of this encounter Care Teams Human Relations Manager Relationship Specialty Start Date End Date Marita Wetzel DO [address] [place] [address] PCP - General Family Medicine 04/21/18 [facility] 05/22/24 documented as of this encounter
--- OUTSIDE RECORDS SUMMARY | 2025-01-19 13:45 | XMS_ITS | Encounter Summary ---
Author Organization [facility], Address [address] [place] [address] Phone Care Team Providers Care Clinical Rn Liaison Name Role Phone Marita Wetzel DO Primary Care Provider Unava ilable Encounter Details Date Type Department Care Team (Late st Contact Info) Description 11/11/2022 Documentation Only [facility] [address] [place] [phone] Pauline Aguayo [address] [place] [phone] Social History Tobacco Use Types Packs/Day Years [...] [facility] V[facility] Access Center [address] [place] [address] 03/08/2025 12:30 PM EST Scheduled Only [facility] Center [address] [place] [address] 07/12/2025 1:00 PM EDT Scheduled Only [facility] - [facility] [address] [place] [address] documented as of this encounter Visit Diagnoses Not on filedocumented in this encounter Care Teams Clinical Rn Liaison Relationship Specialty Start Date End Date Marita Wetzel DO [address] [place] [address] PCP - General Family Medicine 11/14/22 documented as of this encounter
--- OUTSIDE RECORDS SUMMARY | 2025-01-19 13:45 | XMS_ITS | Encounter Summary ---
Author Organization [facility] [place], Address [address] [place] [address] Phone Care Team Providers Care Mechanic Helper Name Role Phone Marita Wetzel DO Primary Care Provider Unava ilable Encounter Details Date Type Department Care Team (Late st Contact Info) Description 10/06/2023 Documentation Only [facility] [address] [place] [address] [place], [place], [place] [address] [place] [phone] Social History Tobacco Use Types Packs/Day Years [...] [facility] [address] [place] [address] 03/08/2025 12:30 PM EST Scheduled Only [facility] Center [address] [place] [address] 07/12/2025 1:00 PM EDT Scheduled Only [facility] [place] - [facility] [address] [place] [address] documented as of this encounter Visit Diagnoses Not on filedocumented in this encounter Care Teams Mechanic Helper Relationship Specialty Start Date End Date Marita Wetzel DO [address] [place] [address] PCP - General Family Medicine 11/14/22 documented as of this encounter
--- OUTSIDE RECORDS SUMMARY | 2025-01-19 13:45 | XMS_ITS | Encounter Summary ---
Author Organization [facility] [place], Address [address] [place] [address] Phone Care Team Providers Care Design Consultant Name Role Phone Marita Wetzel DO Primary Care Provider Unava ilable Encounter Details Date Type Department Care Team (Late st Contact Info) Description 07/04/2023 Documentation Only [facility] [address] [place] [phone] Pauline Aguayo [address] [place] [phone] Social History Tobacco Use Types Packs/Day Years [...] [facility] Vascular Access Center [address] [place] [address] 03/08/2025 12:30 PM EST Scheduled Only [facility] V[facility] Access Center [address] [place] [address] 07/12/2025 1:00 PM EDT Scheduled Only [facility] [place] - [facility] [address] [place] [address] documented as of this encounter Visit Diagnoses Not on filedocumented in this encounter Care Teams Design Consultant Relationship Specialty Start Date End Date Marita Wetzel DO [address] [place] [address] PCP - General Family Medicine 11/14/22 documented as of this encounter
--- OUTSIDE RECORDS SUMMARY | 2025-01-19 13:45 | XMS_ITS | Encounter Summary ---
Author Organization [facility] Address [address] [place] [address] Care Team Providers Care Benzene Still Utility Operator Name Role Phone Marita Wetzel Primary Care Provider [phone]- [phone] Encounter Details Date Type Department Care Team (Late st Contact Info) Description 04/30/[address] [facility] - Main Lab [address] [place] [phone] Marily Gordillo MD [address] [place] [phone] Anemia, unspecified; Chronic embolism and thrombosis of [...] LAB CHEMISTRY METHOD 05/03/2024 10:59 AM EST [facility] Blood Venous blood specimen / Unknown Venipuncture / Unknown 05/03/2024 6:09 AM EST 05/03/2024 9:29 AM EST Marily Gordillo MD LAB BLOOD ORDERABLES Final Resul t Performing Organization Address [facility]/ZIP Co de Phone Number [facility] [address] [place] [address], [place] [phone] * (ABNORMAL) Ferritin (05/03/2024 6:09 AM EST) Ferritin 2,737(H) 8 - 252 ng/mL LAB CHEMISTRY METHOD 05/03/2024 10:59 AM EST [facility] Blood Venous blood specimen / Unknown Venipuncture / Unknown 05/03/2024 6:09 AM EST 05/03/2024 9:29 AM EST us Marily Gordillo MD LAB BLOOD ORDERABLES Final Resul t Performing Organization Address City/[facility]/ZIP Co de Phone Number [facility] [address] [place] [address], [place] [phone] documented in this encounter Visit Diagnoses Diagnosis Anemia, unspecified Chronic embolism and thrombosis of unspecified vein Acute kidney failure, unspecified (CMS/HCC V24) Acute kidney failure, unspecified documented in this encounter Care Teams Benzene Still Utility Operator Relationship Specialty Start Date End Date Marita Wetzel DO [address] [place] [address] PCP - General 01/09/23 documented as of this encounter
--- OUTSIDE RECORDS SUMMARY | 2025-01-19 13:45 | XMS_ITS | Encounter Summary ---
Author Organization [facility] [place], Address [address] [place] [address] Phone Care Team Providers Care [employer] Vice Principal Name Role Phone Marita Wetzel DO Primary Care Provider Unava ilable Encounter Details Date Type Department Care Team (Late st Contact Info) Description 09/11/2023 Documentation Only [facility] [address] [place] [phone] Pauline Aguayo [address] [place] [phone] Social History Tobacco Use Types Packs/Day Years [...] Support [facility] Vascular Access Center [address] [place] [address] 03/08/2025 12:30 PM EST Scheduled Only [facility] V[facility] Access Center [address] [place] [place] [address] 07/12/2025 1:00 PM EDT Scheduled Only [facility] [place] - [facility] Center [address] [place] [address] documented as of this encounter Visit Diagnoses Not on filedocumented in this encounter Care Teams High School Vice Principal Relationship Specialty Start Date End Date Marita Wetzel DO [address] [place] [address] PCP - General Family Medicine 11/14/22 documented as of this encounter
--- OUTSIDE RECORDS SUMMARY | 2025-01-19 13:45 | XMS_ITS | Encounter Summary ---
Author Organization [facility] [place], Address [address] [facility] [place] [address] Phone Care Team Providers Care Bar Machine Operator Multiple Spindle Name Role Phone Marita eWtzel DO Primary Care Provider Unava ilable Reason for Visit * Reason Comments Med Refill Encounter Details Date Type Department Care Team (Late Contact Info) Description 06/18/2024 Refill [facility] [place] [address] [place] [address] Srinivas Agrawal MD [address] [place] [place] [phone] Social History Tobacco Use Types Packs/Day Years [...] Support [facility] Vascular Access Center [address] [place] [place] [address] 03/08/2025 12:30 PM EST Scheduled Only [facility] Vascular Access Center [address] [place] [place] [address] 07/12/2025 1:00 PM EDT Scheduled Only [facility] [place], - Vascular Access Center [address] [place] [address] documented as of this encounter Procedures Procedure Name Priority Date/Time Associated Diagnosis Comments HD KINETICS Routine 06/18/2024 POST CHEMISTRY Routine 06/18/2024 IMMUNO CHEMISTRY Routine 06/18/2024 HEMATOLOGY Routine 06/18/2024 CHEMISTRY Routine 06/18/2024 CHEMISTRY Routine 06/18/2024 [facility] RESULTS Routine 06/18/2024 documented in this encounter Results * [facility] Results (06/18/2024) Pathologist [facility] eKt/V ([place]) 1.28 [facility] WSTDKT/V 0.8 [facility] spKt/V (Daugirdas II) 1.50 [facility] 06/18/2024 06/18/2024 Ivet Ordering Provider LAB BLOOD ORDERABLES Final Result [facility] Contact Performing lab Unknown, [place] * HD KINETICS (06/18/2024) Pathologist [facility] % Urea Reduction 70 65 - [...] 06/22/2024 Unless otherwise specified, test(s) performed at: [facility], [address] [place] [address] CORRECTIONAL TREATMENT SPECIALIST: Dwayne Fuentes M.D. For any questions, please call customer service at FREQUENCY:MONTHLY Resulting Agency Comment Specimen source: Plasma Srinivas Agrawal MD LAB BLOOD ORDERABLES Final Result [facility] See order comments or contact performing lab Unknown, [place] * IMMUNO CHEMISTRY (06/18/2024) Pathologist [facility] Hep B Surface Ag Negative Negative [facility] 06/18/2024 06/19/2024 11: 21 AM EST Narrative Resulting Agency Comment Specimen source: Serum Srinivas Agrawal MD LAB BLOOD ORDERABLES Final Result [facility] See order comments or contact performing lab Unknown, [place] * (ABNORMAL) [facility] (06/18/2024) Pathologist [facility] BUN 44(H) 6 - 19 mg/dL [...] 06/19/2024 Unless otherwise specified, test(s) performed at: [place] [address] CORRECTIONAL TREATMENT SPECIALIST: Dwayne Fuentes M.D. For any questions, please call customer service at FREQUENCY:MONTHLY Resulting Agency Comment Specimen source: Serum Srinivas Agrawal MD LAB BLOOD ORDERABLES Edite d Result - Final Performing Organization Address [facility]/ZIP Co de Phone Number [facility] See order comments or contact performing lab Unknown, [place] * (ABNORMAL) HEMATOLOGY (06/18/2024) Hemoglobin 7.9(L) 12.0 - 16.0 g/dL [facility] Hemoglobin x 3 23.7(L) 36.0 - 48.0 % [facility] 06/18/2024 06/19/2024 12: 24 PM EST Narrative [facility] - 06/19/2024 Unless otherwise specified, test(s) performed at: [facility] [address] CORRECTIONAL TREATMENT SPECIALIST: Dwayne Fuentes M.D. For any questions, please call customer service at FREQUENCY:MONTHLY Resulting Agency Comment Specimen source: Blood Srinivas Agrawal MD LAB BLOOD ORDERABLES Final Result Performing Organization Address City/[facility]/ZIP Co de Phone Number [facility] See order comments or contact performing lab Unknown, [place] * (ABNORMAL) [facility] Chemistry (06/18/2024) PTH 145(H) 16 - 80 pg/mL [facility] 06/18/2024 06/19/2024 11: 40 AM EST Narrative [facility] - 06/19/2024 Unless otherwise specified, test(s) performed at: [facility], [address] [place] [address] CORRECTIONAL TREATMENT SPECIALIST: Dwayne Fuentes M.D. For any questions, please call customer service at FREQUENCY:MONTHLY Resulting Agency Comment Specimen source: Plasma us Srinivas Agrawal MD LAB BLOOD ORDERABLES Final Result [facility] See order comments or contact performing lab Unknown, [place] documented in this encounter Visit Diagnoses Not on filedocumented in this encounter Care Teams Bar Machine Operator Multiple Spindle Relationship Specialty Start Date End Date Marita Wetzel DO [address] [place] [address] PCP - General Family Medicine 11/14/22 documented as of this encounter
--- OUTSIDE RECORDS SUMMARY | 2025-01-19 13:45 | XMS_ITS | Clinical Summary ---
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 47581 mL 12 02/10/20 24 Active predniSONE 5 [...] Encounters Date Type Department Care Team Description 01/10/2025 Treatment [facility] [address] [place] [address] Bernardo Doty MD End stage renal disease; Dependence on renal dialysis 01/05/2025 Treatment [facility] [address] [place] [address] Bernardo Doty MD End stage renal disease; Dependence on renal dialysis 01/03/2025 Treatment [facility] [address] [place] [address] Bernardo Doty MD End stage renal disease; Dependence on renal dialysis 12/29/2024 9:30 AM EDT Clinical Support [facility] [place], - [facility] [address] [place] [phone] Hazel Zepeda Encounter for fitting and adjustment of vascular catheter [Z45.2] (Primary Dx); Stage 5 chronic kidney disease (HCC) [N18.5] 12/29/2024 Orders Only [facility] [address] [address] Srinivas Agrawal MD 12/27/2024 Treatment [facility] [facility], [address] [place] [address] Bernardo Doty MD End stage renal disease; Dependence on renal dialysis 12/22/2024 Telephone [facility] [facility], - [facility] [address] [place] [address] Lakesha Sandoval 12/17/2024 Orders Only [facility] [address] [address] Srinivas Agrawal MD 12/13/2024 Orders Only [facility] [address] [address] Bernardo Doty MD 12/10/2024 Orders Only [facility] [address] [address] Bernardo Doty MD 12/08/2024 Treatment [facility], [address] [place] [address] Bernardo Doty MD End stage renal disease; Dependence on renal dialysis 12/08/2024 Orders Only [facility] [address] [address] Srinivas Agrawal MD 12/06/2024 Orders Only [facility] [address] [address] Bernardo Doty MD 12/06/2024 Treatment [facility] [facility], [address] [place] [address] Bernardo Doty MD End stage renal disease; Dependence on renal dialysis 12/01/2024 Orders Only [facility] [address] [address] Srinivas Agrawal MD 11/24/2024 Orders Only [facility] [address] [address] Srinivas Agrawal MD 11/22/2024 Treatment [facility] [facility], [address] [place] [address] Bernardo Doty MD End stage renal disease; Dependence on renal dialysis 11/19/2024 Treatment [facility], [address] [place] [address] Bernardo Dtoy MD End stage renal disease; Dependence on renal dialysis 11/17/2024 Orders Only [facility] [address] [address] Srinivas Agrawal MD 11/15/2024 Treatment [facility] [place], [address] [place] [address] Bernardo Doty MD End stage renal disease; Dependence on renal dialysis 11/11/2024 10:30 AM EDT Clinical Support [facility], - [facility] Center [address] [place] [phone] Db Neumann MD Encounter for fitting and adjustment of vascular catheter [Z45.2] (Primary Dx); Chronic kidney disease, Stage V (HCC) [N18.5] 11/10/2024 Orders Only [facility] [address] [address] Srinivas Agrawal MD 11/08/2024 Treatment [facility], [address] [place] [address] Bernardo Doty MD End stage renal disease; Dependence on renal dialysis 11/05/2024 Orders Only [facility] [address] [address] Bernardo Doty MD 11/03/2024 Orders Only [facility] [address] [address] Srinivas Agrawal MD 11/01/2024 Treatment [facility] [address] [place] [address] Bernardo Doty MD End stage renal disease; Dependence on renal dialysis 11/01/2024 Orders Only [facility] [address] [address] Bernardo Doty MD 10/27/2024 Orders Only [facility] [address] [address] Srinivas Agrawal MD 10/25/2024 Orders Only [facility] [address] [address] Bernardo Doty MD 10/25/2024 Treatment [facility] [address] [place] [address] Bernardo Doty MD End stage renal disease; Dependence on renal dialysis 10/20/2024 Orders Only [facility] [address] [address] Srinivas Agrawal MD from Last 3 Months [...] [facility] - [facility] Access Center [address] [place] [address] [place] [address] 03/08/2025 12:30 PM EST Scheduled Only [facility] Access Center [address] [place] [address] [place] [address] 07/12/2025 1:00 PM EDT Scheduled Only [facility] [address] [place] [address] [place] [address] Health Maintenance Due Date Last Done Comments [...] (Post-Transplant Patient) 03/29/2022 Influenza Vaccine (#1) 2024 , 01/23/2022, 02/14/2021, Additional history exists Diabetes: Hemoglobin [...] POST CHEMISTRY Routine 10/20/2024 HEMATOLOGY Routine 10/20/2024 SPECIAL CHEMISTRY Routine 10/06/2024 from Last 3 Months or Most Recently Relevant to Health Maintenance Results * (ABNORMAL) HEMATOLOGY (12/29/2024) Only the most recent of11 resultswithin the time period is included. Hemoglobin 9.8(L) 12.0 - 16.0 g/dL [facility] Hemoglobin x 3 29.4(L) 36.0 - 48.0 % [facility] 12/29/2024 12/30/2024 9:3 2 AM EDT Narrative [facility] - 12/30/2024 Unless otherwise specified, test(s) performed at: [facility], [address] [place] [address] FURNACE ROOM SUPERVISOR: Dwayne Fuentes M.D. For any questions, please call customer service at FREQUENCY:OTHER Resulting Agency Comment Specimen source: Blood Srinivas Agrawal MD LAB BLOOD ORDERABLES Final Result Performing Organization Address [facility] de Phone Number [facility] See order comments or contact performing lab Unknown, [place] * HD KINETICS (12/22/2024) Only the most recent of7 resultswithin the time period is included. % Urea Reduction 73 65 - 80 % [facility] 12/22/2024 12/23/2024 1:2 8 PM EDT Narrative [facility] - 12/24/2024 Unless otherwise specified, test(s) performed at: [facility], [address] [place], [place] [id number] FURNACE ROOM SUPERVISOR: Dwayne Fuentes M.D. For any questions, please call customer service at FREQUENCY:OTHER Resulting Agency Comment Specimen source: Plasma Srinivas Agrawal MD LAB BLOOD ORDERABLES Final Result Performing Organization Address [facility] de Phone Number [employer] See order comments or contact performing lab Unknown, [place] * POST CHEMISTRY (12/22/2024) Only the most recent of7 resultswithin the time period is included. Pathologist [facility] BUN Post Dialysis 11 6 - 19 mg/dL [facility] 12/22/2024 12/23/2024 1:2 8 PM EDT Narrative [facility] - 12/23/2024 Unless otherwise specified, test(s) performed at: [facility], [address] [place] [address] FURNACE ROOM SUPERVISOR: Dwayne Fuentes M.D. For any questions, please call customer service at FREQUENCY:OTHER Resulting Agency Comment Specimen source: Plasma Srinivas Agrawal MD LAB BLOOD ORDERABLES Final Result Performing Organization Address [facility] de Phone Number [facility] See order comments or contact performing lab Unknown, [place] * (ABNORMAL) [facility] Chemistry (12/22/2024) Only the most recent of13 resultswithin the time period is included. Pathologist [facility] BUN 40(H) 6 - 19 mg/dL [facility] 12/22/2024 12/23/2024 9:4 0 AM EDT Narrative [facility] - 12/24/2024 Unless otherwise specified, test(s) performed at: [facility], [address] [place] [address] FURNACE ROOM SUPERVISOR: Dwayne Fuentes M.D. For any questions, please call customer service at FREQUENCY:OTHER Resulting Agency Comment Specimen source: Serum Srinivas Agrawal MD LAB BLOOD ORDERABLES Final Result [facility] See order comments or contact performing lab Unknown, [place] * [facility] Results (12/22/2024) Only the most recent of7 resultswithin the time period is included. Pathologist [facility] nPCR_HD 0.78 [facility] eKt/V Gotch 1.35 Knowledg e Center eKt/V (Tattersall) 1.35 [facility] spKt/V Gotch 1.60 Knowled ge Center eKdrt/V 1.35 [facility] WSTDKT/V 2.5 [facility] PCR 52.24 [facility] spKt/V (Daugirdas II) 1.58 [facility] eNPCR 0.73 [facility] 12/22/2024 12/22/2024 [facility] Ordering Provider LAB BLOOD ORDERABLES Final Result [facility] Contact Performing lab Unknown, [place] * IMMUNO CHEMISTRY (12/08/2024) Only the most recent of2 resultswithin the time period is included. Pathologist [facility] Hep B Surface Ag Negative Negative [facility] 12/08/2024 12/09/2024 8:2 1 AM EDT Narrative [facility] - 12/09/2024 Unless otherwise specified, test(s) performed at: [facility] [address] FURNACE ROOM SUPERVISOR: Dwayne Fuentes M.D. For any questions, please call customer service at FREQUENCY:MONTHLY Resulting Agency Comment Specimen source: Serum Srinivas Agrawal MD LAB BLOOD ORDERABLES Final Result Performing Organization Address [facility] de Phone Number [facility] See order comments or contact performing lab Unknown, [place] * (ABNORMAL) SPECIAL CHEMISTRY (10/06/2024) Hemoglobin A1C 6.1(H) 4.8 - 5.9 % [facility] 10/06/2024 10/07/2024 11: 36 AM EDT Narrative [facility] - 10/08/2024 Unless otherwise specified, test(s) performed at: [facility] [address] FURNA[address] ROOM SUPERVISOR: Dwayne Fuentes M.D. For any questions, please call customer service at FREQUENCY:MONTHLY Resulting Agency Comment Specimen source: Blood Srinivas Agrawal MD LAB BLOOD BANK TEST ORDERA BLES Final Result Performing Organization Address [facility] de Phone Number [facility] See order comments or contact performing lab Unknown, [place] from Last 3 Months or Most Recently Relevant to Health Maintenance Insurance [facility] Medicare Medicare [facility] Care Teams Hair Sample Matcher Relationship Specialty Start Date End Date Marita Wetzel DO [address] [place] [address] PCP - General Family Medicine 11/14/22
--- OUTSIDE RECORDS SUMMARY | 2025-01-19 13:45 | XMS_ITS | Encounter Summary ---
Author Organization [facility] Address [address] [place] [address] Care Team Providers Care Supervisor Building Maintenance Name Role Phone Marita Wetzel DO Primary Care Provider [phone]- [phone] Encounter Details Date Type Department Care Team (Late st Contact Info) Description 05/15/2024 Lab Requisition [facility] - Main Lab [address] [facility] [place] [phone] Marily Gordillo MD [address] [place] [phone] Chronic embolism and thrombosis of unspecified vein; [...] documented in this encounter Care Teams Supervisor Building Maintenance Relationship Specialty Start Date End Date aMrita Wetzel DO [address] [place], [place] PCP - General 01/09/23 documented as of this encounter
--- OUTSIDE RECORDS SUMMARY | 2025-01-19 13:45 | XMS_ITS | Encounter Summary ---
Author Organization [facility] Address [address] [place] [address] Care Team Providers Care Gym Manager Name Role Phone Marita Wetzel DO Primary Care Provider +1- [phone] Encounter Details Date Type Department Care Team (Late st Contact Info) Description 04/29/[address] [facility] - Main Lab [address] [facility] [place] [phone] Marily Gordillo MD [address] [place] [phone] Chronic embolism and thrombosis of unspecified vein; [...] unspecified documented in this encounter Care Teams Gym Manager Relationship Specialty Start Date End Date Marita Wetzel DO [address] [place], [place] PCP - General 01/09/23 documented as of this encounter
--- OUTSIDE RECORDS SUMMARY | 2025-01-19 13:45 | XMS_ITS | Encounter Summary ---
Author Organization [facility] Address [address] [place] [address] Phone Care Team Providers Care Dye Range Feeder Name Role Phone Marita Wetzel DO Primary Care Provider Unava ilable Encounter Details Date Type Department Care Team (Late st Contact Info) Description 04/17/2024 Documentation Only [facility] [address] [place] [address] [place], [place], [place] [address] [place] [phone] Social History Tobacco Use Types Packs/Day Years [...] [facility] [address] [place] [address] 03/08/2025 12:30 PM EST Scheduled Only [facility] [address] [place] [address] 07/12/2025 1:00 PM EDT Scheduled Only [facility] [place] - [facility] [address] [place] [phone] documented as of this encounter Visit Diagnoses Not on filedocumented in this encounter Care Teams Dye Range Feeder Relationship Specialty Start Date End Date Marita Wetzel DO [address] [place] [address] PCP - General Family Medicine 11/14/22 documented as of this encounter
--- OUTSIDE RECORDS SUMMARY | 2025-01-19 13:45 | XMS_ITS | Data Portability ---
Author Organization [facility], Main Office Address [address] [place] [address] Care Team Providers Care Parasitologist Name Role Phone PRIMITIVO CHRISTENSEN 2ND FLOOR OTHER CALEB STYLES Primary Care Provider Assessment Encounter Date Assessment Date Assessment LastModified [...] Details Recorded Time Gastrostomy tube in situ 710460902 Active 2022 SENIA PEÑA NP [address] , [address], [place], [address], [facility] 3 14:53:19 Type 2 diabetes mellitus 40934108 Active 2022 SENIA PEÑA NP [address], [address], [place], [address], [facility] 3 14:53:33 Essential hypertension 27231391 Active 2022 SENIA PEÑA NP [address], [address], [place], [address], [facility] [employer] 3 14:54:14 Hiccoughs 74727733 Active 2022 SENIA PEÑA NP [address], [address], [place], [address], [email or web address] 3 14:54:22 Anemia 637255478 Active 2022 SENIA PEÑA NP [address], [address], [place], [address], [email or web address] 3 14:54:39 Gastroesophage al reflux disease without esophagitis 903547873 Active 2022 SENIA PEÑA NP [address], [address], [place], [address], [email or web address] 3 14:56:54 Adult failure to thrive syndrome 655577877 Active 2022 SENIA PEÑA NP [address] [facility], [address], [place], [address], [email or web address] 3 14:57:30 Asthenia 59279631 Active 2022 SENIA PEÑA NP [address] [facility] [address], [address], [place], [address], [email or web address] 3 14:57:41 Transplant of kidney Active 2022 SENIA PEÑA NP [address] [facility] [facility] [address], [address], [place], [address], [email or web address] 3 15:20:19 Immunosuppress tracy therapy Active 2022 SENIA PEÑA NP [address] [facility], [address], [place], [address], [email or web address] 3 15:20:30 Problem Notes None recorded. Medical Equipment None Reported. Allergies Allergen ID Allergen Name Allergen Category Reaction Reaction Severity Criticality Documentation Date Start Date Code Code System Note Provider Name and Address Organization Details Recorded Time 83372 codeine medicatio n Not available Not available Not available 02/18/2023 2670 RxNorm SENIA PEÑA, EPIFANIO [address], [address], [place], [address], [email or web address] 3 14:52:51 60980 oxycodone medicatio n Not available Not available Not available 02/18/2023 7804 RxNorm SENIA PEÑA NP [address] [facility], [address], [place], [address], [email or web address] 3 14:52:58 Medications Name Sig Start Date Stop Date Status Note LastModified by Organization Details LastModified Time tramadol 50 mg tablet Take 0.5 tablets every 8 hours by oral route as needed. 023 active Not Available Not Available Not Avai lable Vitals Date Recorded Heart rate Respiratory rate Body temperature Oxygen saturation Oxygen saturation in Arterial blood by Pulse oximetry Systolic And Diastolic Provider Name and Address Organization Details Last Updated DateTime 3 67 /min 16 /min 98.5 [degF] 98 % 98 % 153/61 mm[Hg] SENIA PEÑA NP [address] [facility], [address], [place], [address], [email or web address] 3 14:58:05 Date Recorded Heart rate Respiratory rate Body temperature Oxygen saturation Oxygen saturation in Arterial blood by Pulse oximetry Systolic And Diastolic Provider Name and Address Organization Details Last Updated DateTime 3 58 /min 16 /min 99 [degF] 95 % 95 % 160/74 mm[Hg] SENIA PEÑA NP [address] [facility], [address], [place], [address], [email or web address] 3 11:17:13 Date Recorded Body height Body mass index (BMI) Body weight Heart rate Respiratory rate Body temperature Oxygen saturation Oxygen saturation in Arterial blood by Pulse oximetry Systolic And Diastolic Provider Name and Address Organization Details Last Updated DateTime 3 167.64 cm 22 kg/m2 56449.5 6 g 80 /min 20 /min 97.5 [degF] 96 % 96 % 128/70 mm[Hg] Aidee Garcia MD [address] [facility], [address], [place], [address], [email or web address] 3 15:16:07 Date Recorded Body height Heart rate Respiratory rate Body temperature Oxygen saturation Oxygen saturation in Arterial blood by Pulse oximetry Systolic And Diastolic Provider Name and Address Organization Details Last Updated DateTime 3 167.64 cm 78 /min 16 /min 97.5 [degF] 97 % 97 % 122/68 mm[Hg] SENIA PEÑA NP [address] [facility], [address], [place], [address], [employer] [facility] 3 15:15:05 Social History Question Answer Notes LastModified by Organizat ion Details LastModified Time Tobacco Smoking Status Never Smoker SENIA PEÑA, EPIFANIO [address] [facility], [address], [place], [address], [facility] 02/18/2023 14:55:18 Do You Have An Advance Directive? Yes Information not available 02/19/2023 What Is Your Code Status? Full Code Information not available 02/19/2023 Where Do You Live? MultiLevelHouse Home With , Many Stairs Information not available 02/20/2023 Legal Guardian? No Informati on not available 02/20/2023 Do You Have A Medical Power Of Shredder/Granulator Operator? Yes Information not available 02/20/2023 What Was The Date Of Your Most Recent Tobacco Screening? 02/20/2023 Information not available 02/20/2023 Do You Have An Out Of Hospital DNR? No Information not available 02/20/2023 What Is Your Relationship Status? Information not available 02/20/2023 Has Tobacco Cessation Counseling Been Provided? No N/a As Pt Is A Non-smoke r Information not available 02/20/2023 Sex: Unknown Functional Status Question Answer Note LastModified by Organizat ion Details LastModified Time Do you use any illicit or recreational drugs? No Information not available 02/18/2023 Do you or have you ever used any other forms of tobacco or nicotine? No Information not available 02/20/2023 What is your level of alcohol consumption? None Information not available 02/18/2023 Mental Status None recorded. Family History Nothing Reported Notes:n/c Medical History No medical history recorded. Gynecological HistoryNo gynecological history recorded. Obstetrics History GPAL:G 0 P 0 0 0 0 Immunizations Vaccine Type Date Status Note Provider Nam e and Address Organization Details Recorded Time Influenza, adjuvanted, quadrivalent, PF 01/23/2022 completed Thania bonner, [facility] 06/18/2023 12:05:05 Influenza, adjuvanted, quadrivalent, PF [facility] 12:05:39 Past Encounters Encounter ID Performer Location Encounter Start Date Encounter Closed Date Diagnosis/Indication Diagnosis SNOMED-CT Code Diagnosis ICD10 Code Diagnosis IMO Codes Diagnosis Note [id number] SENIA PEÑA NP [address] [address] 02/18/2023 14:50:00 02/21/2023 16:14:24 Adult failure to thrive syndrome 260390919 R62.7 GTdental soft, thin liquidswei ghts daily Gastrostom y tube in situ 066821494 Z93.1 flush with water qshift and after medspancre aleptase 10,500 q5 mg for clogged Gtsodium bicarb 650 mg for clogged GT Gastroesop hageal reflux disease without esophagitis 180311485 K21.9 lansoprazo le 30 mg bidprotoni x 40 mg bid Essential hypertension 20831614 I10 lisinopril 5 mg dailyamlod ipine 10 mg dailycoreg 25 mg bidmonitor bp Anemia 343278353 D64.9 cyancobala min 1000 dailyfolic 1 mg dailythiam ine 100 mg dailyprocr it 20,000 qweekmonit or labs Type 2 michael betes mellitus 73666366 E11.9 glargine 15 units amlispro l5mrswqqen r glucose Asthenia 61233023 R53.1 PT OT eval and treatfall precaution sfrequent safety checks Hiccoughs 44514440 R06.6 baclofen 5 mg tid prn Immunosupp ressive therapy 34842516 D84.9 myucopheno lic 180 4 tabs bidtacroli mus 7 daily [id number] SENIA PEÑA NP [facility] [address] [place] [address] 02/19/2023 11:16:30 02/21/2023 16:42:00 Gastrostomy tube in situ 686714219 Z93.1 FLUSH WITH WATER QSHIFT , BEFORE AND AFTER MEDSpancre aleptase 10,500 q5 mg for clogged Gtsodium bicarb 650 mg for clogged GT [id number] MD PRIMITIVO Torres [address] [place] [address] 02/20/2023 14:20:37 02/25/2023 10:42:34 Adult failure to thrive syndrome 232303420 R62.7 Improving since on supplement al feeds vis g-tube.Not on optimal feeding as not yet available. Currently on Osmolite 1.2 mariah @ 65 ml/hr, will be switching to Glucerna when available. Monitor wts and labs. Gastrostom y tube in situ 706634441 Z93.1 As above.Wate r flush q shift.Use pancrelipa se prn and NaHCO3 prn both for clogged tubeMonito r function.C hange tube q 3 months with IR Gastroesop hageal reflux disease without esophagitis 094809735 K21.9 On meds prophylact ically due to G-tube.Unc lear if she's really supposed to be on both lansoprazo le and pantoprazo le, but for now will continue.C ontinue lansoprazo le 30 mg BID and pantoprazo le 40 mg BID.Monito r sxs. Essential hypertension 40983989 I10 Good control since here.Delilah nue lisinopril 5 mg qd, amlodipine 10 mg qd, and carvedilol 25 mg BID.Monito r BP and labs. Anemia 733401790 D63.1 Multifacto rial, but primarily due to CKD.Contin ue cyancobala min 1000 mcg qd, folic acid 1 mg qd, thiamine 100 mg qd and procrit 20,000 units qweek.Marycruz tor labsF/U with renal as planned. Type 2 michael betes mellitus 25608439 E11.9 Sugars very high since here, likely due to wrong tube feed being used.Gluce rna was just delivered, so will not change Lantus at this time.Delilah nue Lantus 15U qd qd and continue SSI.Contin ue fingerstic ks qid. Adjust meds as needed. Asthenia 83434409 R53.1 Very deconditio casi.Needs PT/OT for strengthen ing, balance, gait training, safety and function.C ontinue fall precaution s.Monitor for safety. Hawk 94346049 R06.6 Continue baclofen 5 mg TID prnMonitor sxs. End stage renal failure with renal transplant 078871564 Z94.0 N18.31 Had ESRD, now stage 3AAt baseline.N ot getting the right dose of tacrolimus since here, supposed to be 7 mg qd, but has only been getting 1 mg. Will correct.Co ntinue mycophenol ate 720 mg BID.Contin ue to avoid nephrotoxi c meds as able.Monit or labs.Renal f/u as planned. Infection of skin and/or subcutaneous tissue 98738820 L08.9 With early infection of g-tube site.Will start doxy 100 mg BID x 5 days with probiotic BID x 10 days.Empha size need to put gauze between flange and skin.Monit or. [id number] SENIA PEÑA NP [address] [place] [address] 02/24/2023 14:27:36 02/26/2023 13:13:22 Anemia 327112879 D63.1 cyancobala min 1000 dailyfolic 1 mg dailythiam ine 100 mg dailyprocr it 20,000 qweekmonit or labs Gastrostom y tube in situ 787738993 Z93.1 FLUSH WITH WATER QSHIFT , BEFORE AND AFTER MEDSpancre aleptase 10,500 q5 mg for clogged Gtsodium bicarb 650 mg for clogged GT Immunosupp ressive therapy 03201213 D84.9 myucopheno lic 180 4 tabs bidtacroli mus 7 mg daily Health Concerns Section Related Observation LastModified by Organization Detai ls LastModified Time None Recorded Concern Status LastModified by Organization Details LastModified Time None Recorded Advance Directives Directive Y: Payers Insurance Date Sequence Insurance Name Policy Number Policy Engle Covered Member ID Engle Member ID Guarantor Name 02/21/2023 1 MEDICARE B-MS: [employer] SERVICES [facility] [id number] [facility] 02/25/2023 2 FOR LIFE () [facility] [id number] [facility] Notes Date Note Type Note Provider Name and Address Organization Details Recorded Time 02/18/2023 text/html ROS as noted in the HPI seen today for initial intake visit-62 yof admitted to for rehab [...] kidney injury. She was seen by her multimedia journalist earlier today and was referred for admission [...] discomfort or distress. SENIA PEÑA NP [address] [facility] [address], [address], [place], [address], [email or web address] 02/18/2023 15:22:49 02/19/2023 text/html ROS as noted in the HPI seen today for acute rounding visit, CAOx3 sitting up in bed, GT was blocked, unable to initially flush or pull back, irrig with coca cola and will persistence was able to unclog the GT and it flushed well afterwards SENIA PEÑA NP [address] [facility], [address], [place], [address], [email or web address] 02/19/2023 11:20:46 02/20/2023 text/html This is a complicated 62 yo woman who is here for rehab after an acute hospitalization for FTT. She has had many hospitalizations over the past yr. Starting with kidney transplant in 02/2022 (on tacrolimus and mycophenolate). Most recently she was sent in for direct admission on 01/24, sent in by her multimedia journalist for poor po intake and wt. loss. Documented wt of 160 in 04/2022 after sig diuresis post transplant, prior to that had been 189, but thought to be sig fluid wt. On 01/24 wt. was 120. She had been having issues with eating due to mouth sores, but these had resolved and intake remained poor. Admission eval showed VSS with mild HTN, mild POWER (BUN/Cr-15/1.8 with baseline of 33/1.2), leukopenia with [...] for supplemental nutrition. Aidee Garcia MD [address] [facility], [address], [place], [address], [facility] [facility] 02/20/2023 21:24:33 02/24/2023 text/html ROS as noted in the HPI seen today for acute rounding visit-CAOx3 in bed, she is eating and drinking fairly well, GT remains intact, h/h down 6.2 will send to hospital for transfusion, she denies any discomfort or distress, lungs clear no edema SENIA PEÑA NP [address] [facility], [address], [place], [address], [facility] [employer] [facility] 02/24/2023 15:21:54 OBGyn Episode No OBEpisode recorded.
--- OUTSIDE RECORDS SUMMARY | 2025-01-19 13:45 | XMS_ITS | Encounter Summary ---
Author Organization [facility] Address [address] [place] [address] Phone Care Team Providers Care Airline Attendant Name Role Phone Marita Wetzel DO Primary Care Provider Unava ilable Encounter Details Date Type Department Care Team (Late st Contact Info) Description 06/14/2022 Documentation Only [facility] [address] [place] [address] Candace Adam PA [address] [place] [address] [place] [address] Social History Tobacco Use Types Packs/Day Years [...] [facility] [address] [place] [address] [place] [address] 03/08/2025 12:30 PM EST Scheduled Only [facility] [address] [place] [address] 07/12/2025 1:00 PM EDT Scheduled Only [facility] [place] [address] [place] [address] documented as of this encounter Visit Diagnoses Not on filedocumented in this encounter Care Teams Airline Attendant Relationship Specialty Start Date End Date Marita Wetzel DO [address] [place] [address] PCP - General Family Medicine 11/14/22 documented as of this encounter
--- OUTSIDE RECORDS SUMMARY | 2025-01-19 13:45 | XMS_ITS | Encounter Summary ---
Author Organization [facility] [place], Address [address] [place] [address] Phone Care Team Providers Care Electrical Apprentice Name Role Phone Marita Wetzel DO Primary Care Provider Unava ilable Encounter Details Date Type Department Care Team (Late st Contact Info) Description 09/12/2023 Documentation Only [facility] [address] [place] [address] [place], [place] [address] [place] [address] Social History Tobacco Use Types Packs/Day Years [...] [facility] [address] [place] [address] 03/08/2025 12:30 PM EST Scheduled Only [facility] [address] [place] [place] [address] 07/12/2025 1:00 PM EDT Scheduled Only [facility] [place] [address] [place] [address] documented as of this encounter Visit Diagnoses Not on filedocumented in this encounter Care Teams Electrical Apprentice Relationship Specialty Start Date End Date Marita Wetzel DO [address] [place] [address] PCP - General Family Medicine 11/14/22 documented as of this encounter
--- OUTSIDE RECORDS SUMMARY | 2025-01-19 13:45 | XMS_ITS | Clinical Summary ---
Author Organization [employer] Address [address] [place] [address] 7[address] [place] [address] Care Team Providers Care Residential Real Estate Appraiser Name Role Phone Damari Marita Primary Care Provider Allergies Active Allergy Reactions Criticality Noted Date Comments Codeine Hives High 11/12/2011 Other reaction(s): FAINTING/HIVES Oxycodone 07/30/2022 Oxycodone-Acetaminophen Hives High 10/05/2012 Other reaction(s): Nausea / Vomiting Medications * This document contains information received from the source organization and may not represent a complete record from that organization. Continuous Blood Gluc Simulation Educator (Texifter Seema 2 [place]) device 3 Active dorzolamide-awa lol (Cosopt) 22.3-6.8 [...] Blood Gluc Sensor (FreeStyle Seema 2 Sensor) [facility] Use as directed Active mycophenolate (Myfortic) 360 [...] mouth 4 times daily. 4 Active Procrit 52035 UNIT/ML injection 4 Active insulin lispro (HumaLOG KWIKPEN) 100 UNIT/ML injectionIndicat ions:Type 2 diabetes mellitus with stage 3b chronic kidney disease, with long-term current use of insulin ([facility]) Inject subQ 3 times daily with [...] FOR ANXIETY 30 capsule 1 5 Active Lantus SoloStar 100 UNIT/ML penIndications:T ype 2 diabetes mellitus with stage 3b chronic kidney disease, with long-term current use of insulin (HCC) INJECT 8 UNITS UNDER THE SKIN IN THE MORNING. 15 mL 3 5 Active Continuous Glucose Simulation Educator (FreeStyle Seema 3 [place]) deviceIndication s:Type 2 diabetes mellitus with stage 3b chronic kidney disease, with long-term current use of insulin (HCC) 1 each Once per day. Use as directed for CGM 1 each 5 Active Continuous Glucose Sensor (FreeStyle Seema 3 Plus Sensor) miscIndications: Type 2 diabetes mellitus with stage 3b chronic kidney disease, with long-term current use of insulin (HCC) 1 each every 15 days. Apply 1 every 15 days as directed for CGM 2 each 5 Active glucose blood (FreeStyle Precision Nikko Test) test stripIndications :Type 2 diabetes mellitus with stage 3b chronic kidney disease, with long-term current use of insulin (HCC) Use to test blood sugar 3 times daily in case of CGM failure or extremes of BG 100 each 5 12/10/19 26 Active carvedilol (Coreg) 25 MG tablet TAKE 1 TABLET BY MOUTH EVERY DAY IN THE MORNING AND IN THE EVENING WITH MEALS 180 tablet 1 5 Active Active Problems Problem Noted Date [...] declined. Chronic kidney disease, stage 4 (severe) (CMS/HC C) 11/08/2022 05/01/2023 Assessment & Plan (10/31/2023 11:21 AM [...] Hyperuricemia 07/10/2022 05/01/2023 ESRD on peritoneal dialysis ([facility]) 07/09/2022 07/30/2022 Neutropenia 07/05/2022 07/30/2022 Stage 3 chronic kidney disease ([facility]) 06/24/2022 05/01/2023 Iron deficiency anemia 10/01/201907/30 Sciatica 05/06/2018 05/01/2023 Simple renal cyst 01/30/2015 07/30/2022 Diabetes mellitus due to und erlying condition with stable proliferative diabetic retinopathy, bilateral 05/14/2013 07/30/2022 Overview (07/10/2022): diabetic retinopathy, neuropathy Type 2 diabetes mellitus Kidney problem 05/14/2013 07/30/2022 Overview (07/10/2022): Kidney problem Encounters Date Type Department Care Team Description 12/17/[address] [facility] [address] [place] [address] Marita Wetzel DO 12/16/[address] [facility] [address] [place] [phone] Marita Wetzel DO Chart Prep 12/09/[address] [facility] [address] [place] [address] Faye Batista, SONNY Type 2 diabetes mellitus with stage 3b chronic kidney disease, with long-term current use of insulin (CMS/HCC) 12/08/2024 Orders Only [facility] [address] [place] [address] Cherry Landa MD 12/08/[address] [facility] [address] [place] [phone] Cherry Landa MD Type 2 diabetes mellitus with stage 3b chronic kidney disease, with long-term current use of insulin (CMS/HCC) 12/07/2024 11:20 AM EDT Office Visit [facility] [address] [place] [phone] Cherry Landa MD Essential hypertension (Primary Dx); Type 2 diabetes mellitus with hyperglycemia, with long-term current use of insulin (CMS/HCC); Type 2 diabetes mellitus with stage 3b chronic kidney disease, with long-term current use of insulin (CMS/HCC); Pancreatic lesion; Other ascites 12/07/[address] [facility] [address] [place] [phone] Cherry Landa MD Type 2 diabetes mellitus with stage 3b chronic kidney disease, with long-term current use of insulin (CMS/HCC) 12/07/2024 Travel 12/06/[address] [facility] [address] [place] [phone] Marita Wetzel DO telephone call 11/27/2024 Orders Only [facility] External Provider, [facility] 11/05/[address] [facility] [address] [place] [address] Marita Wetzel DO Results; Referral 11/02/2024 11:00 AM EDT Office Visit [facility] [address] [place] [address] Cherry Landa MD Abdominal enlargement; Pain of upper abdomen 11/02/2024 Travel 10/25/[address] [facility] [address] [place] [address] Marita Wetzel DO call back needed from Last 3 Months Immunizations Immunization Administration Dates Next Due Hep B, adult 10/02/2021,,08/03/2021,07/04,05/31/2021,03/04/2017,05/09/2016 ,04/11/2016 HepB-CpG 10/01/2021,,07/04/2021,05/31 Influenza injectable quadriv alent IIV4 with preservative [...] Description 02/17/2025 10:00 AM EDT Medication Management [facility] [address] [place] [address] Carmen Becker, PharmD [address] [place], [place] [phone] Health Maintenance Due Date Last Done Comments [...] 08/13/2023 08/12/2018 Depression Screening 10/09/2023 10/08/2022, 10/09/19 23 SDOH Screening 07/14/2024 07/15/2023 Lipid Panel 10/05/2024 [...] disease, with long-term current use of insulin ([facility]) POCT GLYCATED HEMOGLOBIN, TOTAL Routine 12/07/2024 11:38 AM EDT Type 2 diabetes mellitus with stage 3b chronic kidney disease, with long-term current use of insulin ([facility]) CT ABDOMEN PELVIS WO CONTRAST Routine [...] % Blood 12/07/2024 11:3 8 AM EDT us Cherry Kc MD POINT [...] PM EDT Narrative 11/27/2024 2:55 PM EDT [address] [address] [address] Scan Report Signed Patient: Alix Sharp MR#: [id number] 43 : 1960 Acct:[id number] Age/Sex: 64 / F ADM Date: 11/27/24 Loc: HO.ED Attending Dr: Ordering Physician: Shavonne Lima NP Date of Service: 11/27/24 Procedure(s): CT abdomen pelvis wo IV con Accession Number(s): [id number] cc: Marita Wetzel DO; Shavonne Lima NP Report Number: [id number]: Total DLP = 644.00 mGy-cm CLINICAL HISTORY: [...] signed by Kaitlynn Guillaume MD in OV> 11/27/241454 DD/ 53 TD/TT: 11/27/241453 Certified Nurse: Procedure Note Donotuseinterpreter, Image - 11/27/[address] [place] [address] [address] Scan Report Signed Patient: Alix Sharp BMR#: [id number] 43 : 1960cct:[id number] Age/Sex: 64 / FADM Date: 11/27/24 Loc: HO.ED Attending Dr: Ordering Physician: Shavonne Lima NP Date of Service: 11/27/24 Procedure(s): CT abdomen pelvis wo IV con Accession Number(s): [id number] cc: Marita Wetzel DO; Shavonne Lima NP Report Number: [id number]: Total DLP = 644.00 mGy-cm CLINICAL HISTORY: [...] 11/27/24 1455 DD/ 1454 TD/TT: 11/27/24 145 Certified Nurse: us [facility] External Provider IMG CT PROCEDURES Final Result * (ABNORMAL) CBC auto differential (11/27/2024 12:28 PM EDT) White Blood Count 5.8 4.8 - 10.8 X10*3/uL [facility] Red Blood Count 3.88(L) 4.20 - 5.50 X10*6/uL [facility] Hemoglobin 10.7(L) 12.0 - 16.0 g/dl [facility] Hematocrit 35.1(L) 37.0 - 47.0 % [facility] Mean Corpuscular Volume 90.5 80.0 - 98.0 fL [facility] Mean Corpuscular Hemoglobin 27.6 27.0 - 33.0 pg [facility] Mean Corpuscular HGB Conc 30.5(L) 31.0 - 35.0 g/dl [facility] Red Cell Distribution Width 18.1(H) 11.0 - 16.0 % [facility] Platelet Count 122(L) 160 - 400 X10*3/uL [facility] Mean Platelet Volume 9.4 9.4 - 12.3 fL [facility] Neutrophils Percent Auto 83.7(H) 45 - 73 % [facility] Imm Gran Pct Auto 0.3 0.0 - 0.4 % [facility] Lymphocytes Percent Auto 8.6(L) 20 - 40 % [facility] Monocytes Percent Auto 6.7 2 - 11 % [facility] Eosinophils Percent Auto 0.5 0 - 4 % [facility] Basophils Percent Auto 0.2 0 - 2 % [facility] NRBC Pct Auto 0.0 0.0 - 0.2 /100WBC [facility] Neutrophils Absolute Auto 4.9 2.0 - 8.3 x10*3/uL [facility] Imm Gran Abs Auto 0.02 0.00 - 0.03 X10*3/uL [facility] Lymphocytes Absolute Auto 0.5(L) 1.2 - 4.9 X10*3/uL [facility] Monocytes Absolute Auto 0.4 0.1 - 1.2 X10*3/uL [facility] Eosinophils Absolute Auto 0.0 0.0 - 0.4 X10*3/uL [facility] Basophils Absolute Auto 0.0 0.0 - 0.2 X10*3/uL [facility] NRBC Abs Auto 0.000 0.0 - 0.012 X10*3/uL [facility] 11/27/2024 12:2 8 PM EDT 11/27/2024 12:36 PM EDT Narrative [facility] - 11/27/2024 12:39 PM EDT patient has power port . RN to access port when in room us Generic External Data Provider LAB BLOOD ORDERAB LES Final Result [facility] [address] [place] [address] [phone] * (ABNORMAL) Comprehensive Metabolic Panel (11/27/2024 12:28 PM EDT) Sodium 138 135 - 145 mmol/L [facility] Potassium 4.3 3.3 - 5.1 mmol/L [facility] Chloride 103 96 - 108 mmol/L [facility] Carbon Dioxide 24 22 - 29 mmol/L [facility] Anion Gap 15 12 - 20 [facility] Urea Nitrogen (BUN) 40(H) 9 - 16 mg/dL [facility] Creatinine, Serum 4.26(HH) 0.5 - 1.4 mg/dL [facility] Comment:Critical value for t est(s): CREA Results called to and readback by: ALISIA Person calling: CIRCOD Date:11/27/24 Time: 1256 Creatinine Clr Calc Pharmacy 12.9 [facility] Comment:Provided height and weight: 170.18 cm,72.575 kg.eGFR (calculated from the MDRD study equation) and eCrCl(calculated from the Cockcroft-Gault equation) are based ondifferent parameters and may not yield comparable results.If eCrCl result is absurd, please check patient'sheight/weight. Estimated Glomerular Filt Rate 10 [facility] Comment:Chronic Kidney Disea se: Estimated GFR < 60 mL/min/1.31v8Lqqocp Kidney Disease: Estimated GFR < 15 mL/min/1.73m2 Glucose 153(H) 60 - 115 mg/dL [facility] Calcium 8.2(L) 8.4 - 10.2 mg/dL [facility] Bilirubin, Total 0.4 0.0 - 1.0 mg/dL [facility] Aspartate Amino Transferase 20 5 - 31 U/L [facility] Alanine Aminotransferase <6 0 - 31 U/L [facility] Total Protein 7.0 6.5 - 8.0 g/dL [facility] Albumin Level 3.3(L) 3.5 - 5.0 g/dL [facility] Alkaline Phosphatase 111 39 - 117 U/L [facility] 11/27/2024 12:2 8 PM EDT 11/27/2024 12:36 PM EDT Narrative [facility] - 11/27/2024 12:57 PM EDT patient has power port . RN to access port when in room us Generic External Data Provider LAB BLOOD ORDERAB LES Final Result Performing Organization Address City/State/[facility] Co de Phone Number [facility] [address] [place] [phone] * XR Elbow 3+ Views Left (11/27/2024 10:15 AM EDT) Anatomical Region Laterality Modality Upper Extremities, Elbow Left Radiogr aphic Imaging 11/27/2024 10:1 5 AM EDT Narrative 11/27/2024 10:17 AM EDT [address] [address] XRay Report Signed Patient: Alix Sharp MR#: [id number] 43 : 1960 Acct:[id number] Age/Sex: 64 / F ADM Date: 11/27/24 Loc: HO.ED Attending Dr: Ordering Physician: Generic ED Physician Date of Service: 11/27/24 Procedure(s): XR elbow LT min 3V Accession Number(s): [id number] cc: Generic ED Physician; Marita Wetzel DO [...] 11/27/24 1016 DD/ 1015 TD/TT: 11/27/24 1015 Certified Nurse: Procedure Note Donotclifinterpreter, Image - 11/27/2024 [place] [address] XRay Report Signed Patient: Alix Sharp BMR#: [id number] 43 : 1960cct:[id number] Age/Sex: 64 / FADM Date: 11/27/24 Loc: HO.ED Attending Dr: Ordering Physician: Generic ED Physician Date of Service: 11/27/24 Procedure(s): XR elbow LT min 3V Accession Number(s): [id number] cc: Generic ED Physician; Marita Wetzel DO [...] 11/27/24 1016 DD/ 1015 TD/TT: 11/27/24 1015 Certified Nurse: us [facility] External Provider IMG XR PROCEDURES Final Result * XR Hip left with Pelvis 1 view (11/27/2024 10:00 AM EDT) Anatomical Region Laterality Modality Lower Extremities, Hip Bilateral Radiograp hic Imaging 11/27/2024 10:0 0 AM EDT Narrative 11/27/2024 10:01 AM EDT [place] [address] XRay Report Signed Patient: Alix Sharp MR#: [id number] [birth year] : 1960 Acct:[id number] Age/Sex: 64 / F ADM Date: 11/27/24 Loc: HO.ED Attending Dr: Ordering Physician: Generic ED Physician Date of Service: 11/27/24 Procedure(s): XR hip LT w PEL1V Accession Number(s): [id number] cc: Generic ED Physician; Marita Wetzel DO CLINICAL HISTORY: fall of left hip 3 view, pelvis and left hip Comparison: None provided Findings: Curvilinear lucent line projecting over the medial aspect of the right inferior ischiopubic ramus may be artifactual or due to an age-indeterminate fracture. Correlate clinically. Otherwise no acute fracture. Three proximal femoral screws without hardware complications. [id number] degenerative narrowing of the superomedial aspects of [...] 11/27/24 1001 DD/ 1000 TD/TT: 11/27/24 1000 Certified Nurse: Procedure Note Donotuseinterpreter, Image - 11/27/2024 [place] [address] XRay Report Signed Patient: Alix Sharp BMR#: [id number] 43 : 1960cct:[id number] Age/Sex: 64 / FADM Date: 11/27/24 Loc: HO.ED Attending Dr: Ordering Physician: Generic ED Physician Date of Service: 11/27/24 Procedure(s): XR hip LT w PEL1V Accession Number(s): [id number] cc: Generic ED Physician; Marita Wetzel DO CLINICAL HISTORY: fall of left hip 3 view, pelvis and left hip Comparison: None provided Findings: Curvilinear lucent line projecting over the medial aspect of the right inferior ischiopubic ramus may be artifactual or due to an age-indeterminate fracture. Correlate clinically. Otherwise no acute fracture. Three proximal femoral screws without hardware complications. Vhpu-nn-rabwhldw degenerative narrowing of the superomedial aspects of [...] MD Signed By: <Electronically signed by Evelyne Dnun MD in OV> 11/27/24 1001 DD/ 1000 TD/TT: 11/27/24 1000 Certified Nurse: [facility] External Provider IMG XR PROCEDURES Final Result * (ABNORMAL) Lipid Panel, Standard (10/06/2023) Triglycerides 157 40 - 160 mg/dL Cholesterol 115 0 - 200 mg/dL HDL Cholesterol 31(A) 35 - 70 mg/dL LDL Cholesterol 57 mg/dL Blood Venous blood specimen / Unknown us Historical Provider LAB BLOOD ORDERABLES Carly manuel Result * BI Mammogram Screening Tomosynthesis Bilateral (07/17/2023 10:45 AM EDT) Anatomical Region Laterality Modality Breast Bilateral Mammography 07/17/2023 10:4 5 AM EDT Narrative 08/03/2023 8:29 PM EDT [facility] [address] [place] [address] Mammography Report Signed Patient: Alix Dennis MR#: [id number] : 1960 Acct:[id number] Age/Sex: 63 / F ADM Date: 07/17/23 Loc: HO.MAMMO Attending Dr: Marita Wetzel DO Ordering Physician: Marita Wetzel DO Results: 2B enign Findings Date of Service: 07/17/23 Follow Up: 1 Year From [facility] Mammogram Procedure(s): MM tomosynthesis screening BI Accession Number(s): [id number] cc: Marita Wetzel DO EXAMINATION: MM SCREENING [...] MD in OV> 08/03/232024 DD/ 1045 TD/TT: Certified Nurse: Procedure Note Donotuseinterpreter, Image - 08/03/2023 [facility] [address] [place] [address] Mammography Report Signed Patient: Alix Dennis FMR#: [id number] : 1960cct:[id number] Age/Sex: 63 / FADM Date: 07/17/23 Loc: RICHY Attending Dr: Marita Wetzel DO Ordering Physician: Marita Wetzelults: 2B enign Findings Date of Service: 07/17/23Follow Up: 1 Year From Orig inal Mammogram Procedure(s): MM tomosynthesis screening BI Accession Number(s): [id number] cc: Marita Wetzel DO EXAMINATION: MM SCREENING [...] MD in OV> 08/03/232024 DD/ 1045 TD/TT: Certified Nurse: Marita Wetzel DO IMG BI PROCEDURES Edited [...] Subscriber Plan / Payer (Ef fective 2019-Present) Name:Alix Sharp Member ID:[id number] Relation to Subscriber:Self Name:AronAlix Subscriber ID:[id number] Payer ID:STATE Group ID:Not on file Type:Medicare Address: [facility] [address] [address] [facility] TeamSupport Care Teams Residential Real Estate Appraiser Relationship Specialty Start Date End Date Marita Wetzel DO [address] [place] [phone] PCP - General Family Medicine 04/21/18 [facility] 05/22/24
--- OUTSIDE RECORDS SUMMARY | 2025-01-19 13:45 | XMS_ITS | Encounter Summary ---
Author Organization [facility], Address [address] [place] [address] Phone Care Team Providers Care Refinery Pipeline Operator Name Role Phone Marita Wetzel DO Primary Care Provider Unava ilable Encounter Details Date Type Department Care Team (Late st Contact Info) Description 06/25/2022 Documentation Only [facility] [address] [place] [phone] Pauline Aguayo [address] [place] [phone] Social History Tobacco Use Types Packs/Day Years [...] Support [facility] [address] [place] [address] 03/08/2025 12:30 PM EST Scheduled Only [facility] [address] [place] [address] 07/12/2025 1:00 PM EDT Scheduled Only [facility] [address] [place] [address] documented as of this encounter Visit Diagnoses Not on filedocumented in this encounter Care Teams Refinery Pipeline Operator Relationship Specialty Start Date End Date Marita Wetzel DO [address] [place] [address] PCP - General Family Medicine 11/14/22 documented as of this encounter
--- OUTSIDE RECORDS SUMMARY | 2025-01-19 13:45 | XMS_ITS | Encounter Summary ---
Author Organization [facility] Address [address] [place] [address] Care Team Providers Care Client Reporting Associate Name Role Phone Marita Wetzel DO Primary Care Provider [phone] Encounter Details Date Type Department Care Team (Late st Contact Info) Description 05/12/2024 Lab Requisition [facility] - Main Lab [address] [facility] [address] [place] [phone] Marily Gordillo MD [address] [place] [address] Chronic kidney disease, unspecified; Anemia, [...] unspecified documented in this encounter Care Teams Client Reporting Associate Relationship Specialty Start Date End Date Marita Wetzel DO [address] [place] [address] PCP - General 01/09/23 documented as of this encounter
--- OUTSIDE RECORDS SUMMARY | 2025-01-19 13:45 | XMS_ITS | Encounter Summary ---
Author Organization [facility] Address [address] [place] [address] Phone Care Team Providers Care Gas Distribution Plant Operator Name Role Phone Marita Wetzel DO Primary Care Provider Unava ilable Encounter Details Date Type Department Care Team (Late st Contact Info) Description 04/13/2024 Documentation Only [facility] [address] [place] [address] [address], [place], [place] [address] [place] [phone] Social History Tobacco Use Types Packs/Day Years [...] [facility] V[facility] Access Center [address] [place] [address] 03/08/2025 12:30 PM EST Scheduled Only [facility] [address] [place] [address] 07/12/2025 1:00 PM EDT Scheduled Only [facility] [place] [address] [place] [phone] documented as of this encounter Visit Diagnoses Not on filedocumented in this encounter Care Teams Gas Distribution Plant Operator Relationship Specialty Start Date End Date Marita Wetzel DO [address] [place] [address] PCP - General Family Medicine 11/14/22 documented as of this encounter
--- OUTSIDE RECORDS SUMMARY | 2025-01-19 13:45 | XMS_ITS | Encounter Summary ---
Author Organization [facility] [place], Address [address] [place] [address] Phone Care Team Providers Care Director Of Contracts Name Role Phone Marita Wetzel DO Primary Care Provider Unava ilable Reason for Visit * Reason Comments Med Refill Encounter Details Date Type Department Care Team (Late Contact Info) Description 05/08/2021 Refill [facility] [address] [place] [phone] Bernardo Doty MD [address] [place] [address] Social History Tobacco Use Types Packs/Day Years [...] [facility] [address] [place] [address] 03/08/2025 12:30 PM EST Scheduled Only [facility] Access Center [address] [place] [address] 07/12/2025 1:00 PM EDT Scheduled Only [facility] [place] [address] [place] [address] documented as of this encounter Visit Diagnoses Not on filedocumented in this encounter Care Teams Director Of Contracts Relationship Specialty Start Date End Date Marita Wetzel DO [address] [place] [address] PCP - General Family Medicine 11/14/22 documented as of this encounter
--- OUTSIDE RECORDS SUMMARY | 2025-01-19 13:45 | XMS_ITS | Encounter Summary ---
Author Organization [facility] [place], Address [address] [place] [address] Phone Care Team Providers Care Gem Expert Name Role Phone Marita Wetzel DO Primary Care Provider Unava ilable Encounter Details Date Type Department Care Team (Late st Contact Info) Description 08/11/2023 Documentation Only [facility] [address] [place] [address] Hend[place], [place], [place] [address] [place] [phone] Social History Tobacco Use Types Packs/Day Years [...] Support [facility] - Vascular Access Center [address] [place] [address] 03/08/2025 12:30 PM EST Scheduled Only [facility] Vascular Access Center [address] [place] [address] 07/12/2025 1:00 PM EDT Scheduled Only [facility] [place] - V[facility] Access Center [address] [place] [address] documented as of this encounter Visit Diagnoses Not on filedocumented in this encounter Care Teams Gem Expert Relationship Specialty Start Date End Date Marita Wetzel DO [address] [place] [address] PCP - General Family Medicine 11/14/22 documented as of this encounter
--- OUTSIDE RECORDS SUMMARY | 2025-01-19 13:45 | XMS_ITS | Encounter Summary ---
Author Organization [facility] [place], Address [address] [place] [address] Phone Care Team Providers Care Engineering Manager Electronics Name Role Phone Marita Wetzel DO Primary Care Provider Unava ilable Reason for Visit * Reason Comments Med Refill Encounter Details Date Type Department Care Team (Late Contact Info) Description 01/04/2021 Refill [facility] [address] [place] [phone] Bernardo Doty MD [address] [place] [address] Social History Tobacco Use Types Packs/Day Years [...] Access Center [address] [place] [address] 03/08/2025 12:30 PM EST Scheduled Only [facility] Vascular Access Center [address] [place] [address] 07/12/2025 1:00 PM EDT Scheduled Only [facility] [place] - [facility] Center [address] [place] [address] documented as of this encounter Visit Diagnoses Not on filedocumented in this encounter Care Teams Engineering Manager Electronics Relationship Specialty Start Date End Date Marita Wetzel DO [address] [place] [address] PCP - General Family Medicine 11/14/22 documented as of this encounter
--- OUTSIDE RECORDS SUMMARY | 2025-01-19 13:45 | XMS_ITS | Encounter Summary ---
Author Organization [facility] Address [address] [place] [address] Care Team Providers Care Dormitory Supervisor Name Role Phone Marita Wetzel DO Primary Care Provider +1- [phone] Encounter Details Date Type Department Care Team (Late st Contact Info) Description 05/21/[address] [facility] - Main Lab [address] [facility] [place] [phone] Marily Gordillo MD [address] [place] [phone] Chronic embolism and thrombosis of unspecified vein; [...] unspecified documented in this encounter Care Teams Dormitory Supervisor Relationship Specialty Start Date End Date Marita Wetzel DO [address] [place], [place] PCP - General 01/09/23 documented as of this encounter
--- OUTSIDE RECORDS SUMMARY | 2025-01-19 13:45 | XMS_ITS | Encounter Summary ---
Author Organization [facility] Address [address] [place] [address] Care Team Providers Care Bulk Clerk Name Role Phone Marita Wetzel Primary Care Provider +1- [phone] Encounter Details Date Type Department Care Team (Late st Contact Info) Description 05/07/2024 Lab Requisition [facility] - Main Lab [address] [place] [phone] Marily Gordillo MD [address] [place] [address] Chronic embolism and thrombosis of [...] LAB CHEMISTRY METHOD 05/10/2024 11:45 AM EST [facility] Potassium 3.8 3.5 [...] [facility] [place]/ZIP Co de Phone Number [facility] [address] [place] [address], [place] [phone] * Tacrolimus level (05/10/2024 5:50 AM EST) [...] or for research. Test performed at [facility], [address] , [place], [place] [id number] Ashtyn Leigh MD, PhD - Supervisor Paper Products Blood Venous blood specimen / Unknown Venipuncture / Unknown 05/10/2024 5:50 AM EST 05/10/2024 9:58 AM EST Marily Gordillo MD LAB BLOOD ORDERABLES Final Resul t [facility] [address] [place] [address] documented in this encounter Visit Diagnoses Diagnosis Chronic embolism and thrombosis of unspecified vein Acute kidney failure, unspecified (CMS/[facility] V24) Acute kidney failure, unspecified documented in this encounter Care Teams Bulk Clerk Relationship Specialty Start Date End Date Marita Wetzel DO [address] [place] [address] PCP - General 01/09/23 documented as of this encounter
--- OUTSIDE RECORDS SUMMARY | 2025-01-19 13:45 | XMS_ITS | Encounter Summary ---
Author Organization [facility] [place], Address [address] [place] [address] Phone Care Team Providers Care Flight Attendant Inflight Services Name Role Phone Marita Wetzel DO Primary Care Provider Unava ilable Encounter Details Date Type Department Care Team (Late st Contact Info) Description 10/24/2023 Documentation Only [facility] [address] [place] [address] [place], [place], [place] [address] [place] [phone] Social History Tobacco Use Types Packs/Day Years [...] And Transplant Services Of [facility] - Vascular Access Center [address] [place] [address] 03/08/2025 12:30 PM EST Scheduled Only [facility] - Vascular Access Center [address] [place] [place] [address] 07/12/2025 1:00 PM EDT Scheduled Only [facility] [place] - V[facility] Access Center [address] [place] [address] documented as of this encounter Visit Diagnoses Not on filedocumented in this encounter Care Teams Flight Attendant Inflight Services Relationship Specialty Start Date End Date Marita Wetzel DO [address] [place] [address] PCP - General Family Medicine 11/14/22 documented as of this encounter
--- OUTSIDE RECORDS SUMMARY | 2025-01-19 13:45 | XMS_ITS | Encounter Summary ---
Author Organization [facility] [place], Address [address] [place] [address] Phone Care Team Providers Care Green Jobs Trainer Name Role Phone Marita Wetzel DO Primary Care Provider Unava ilable Encounter Details Date Type Department Care Team (Late st Contact Info) Description 08/28/2023 Documentation Only [facility] [address] [place] [address] [place], [place], [place] [address] [place] [phone] Social History Tobacco Use Types Packs/Day Years [...] And Transplant Services Of [facility] - Vascular Access Center [address] [place] [address] 03/08/2025 12:30 PM EST Scheduled Only [facility] - Vascular Access Center [address] [place] [address] 07/12/2025 1:00 PM EDT Scheduled Only [facility] [place] - Vascular Access Center [address] [place] [address] documented as of this encounter Visit Diagnoses Not on filedocumented in this encounter Care Teams Green Jobs Trainer Relationship Specialty Start Date End Date Marita Wetzel DO [address] [place] [address] PCP - General Family Medicine 11/14/22 documented as of this encounter
--- OUTSIDE RECORDS SUMMARY | 2025-01-19 13:45 | XMS_ITS | Encounter Summary ---
Author Organization [facility] [place], Address [address] [place] [address] Phone Care Team Providers Care Headlight Assembler Name Role Phone Marita Wetzel DO Primary Care Provider Unava ilable Encounter Details Date Type Department Care Team (Late st Contact Info) Description 08/27/2023 Documentation Only [facility] [address] [place] [address] [place], [place], [place] [address] [place] [phone] Social History Tobacco Use Types Packs/Day Years [...] Support [facility] - Vascular Access Center [address] [place] [place] [address] 03/08/2025 12:30 PM EST Scheduled Only [facility] - Vascular Access Center [address] [place] [place] [address] 07/12/2025 1:00 PM EDT Scheduled Only [facility] [place] - Vascular Access Center [address] [place] [address] documented as of this encounter Visit Diagnoses Not on filedocumented in this encounter Care Teams Headlight Assembler Relationship Specialty Start Date End Date Marita Wetzel DO [address] [place] [address] PCP - General Family Medicine 11/14/22 documented as of this encounter
--- OUTSIDE RECORDS SUMMARY | 2025-01-19 13:45 | XMS_ITS | Encounter Summary ---
Author Organization [facility] Address [address] [place] [address] Phone Care Team Providers Care Assignment Agent Name Role Phone Marita Wetzel DO Primary Care Provider Unava ilable Encounter Details Date Type Department Care Team (Late st Contact Info) Description 10/03/2023 Documentation Only [facility] [address] [place] [phone] Srinivas Agrawal MD [address] [place] [address] [place] [phone] Social History Tobacco Use Types Packs/Day Years [...] Of [facility] Vascular Access Center [address] [place] [address] [place] [phone] 03/08/2025 12:30 PM EST Scheduled Only [facility] Vascular Access [address] [place] [address] 07/12/2025 1:00 PM EDT Scheduled Only [facility] [place] - Vascular Access Center [address] [place] [address] documented as of this encounter Visit Diagnoses Not on filedocumented in this encounter Care Teams Assignment Agent Relationship Specialty Start Date End Date Marita Wetzel DO [address] [place] [address] PCP - General Family Medicine 11/14/22 documented as of this encounter
--- OUTSIDE RECORDS SUMMARY | 2025-01-19 13:45 | XMS_ITS | Encounter Summary ---
Author Organization [facility] [place], Address [address] [place] [address] Phone Care Team Providers Care Desktop Analyst Name Role Phone Marita Wetzel DO Primary Care Provider Unava ilable Encounter Details Date Type Department Care Team (Late st Contact Info) Description 10/17/2023 Documentation Only [facility] Of [address] [place] [address] [place], [place] [address] [place] [phone] Social History Tobacco Use Types Packs/Day Years [...] [facility] - Vascular Access Center [address] [place] [address] 03/08/2025 12:30 PM EST Scheduled Only [facility] - Vascular Access Center [address] [place] [address] 07/12/2025 1:00 PM EDT Scheduled Only [facility] [place] - Vascular Access Center [address] [place] [address] documented as of this encounter Visit Diagnoses Not on filedocumented in this encounter Care Teams Desktop Analyst Relationship Specialty Start Date End Date Marita Wetzel DO [address] [place] [address] PCP - General Family Medicine 11/14/22 documented as of this encounter
--- OUTSIDE RECORDS SUMMARY | 2025-01-19 13:46 | XMS_ITS | Encounter Summary ---
Author Organization [facility] Address [address] [place] [address] Care Team Providers Care Residential Sales Representative Name Role Phone Marita Wetzel Primary Care Provider +1- [phone] Encounter Details Date Type Department Care Team (Late st Contact Info) Description 03/29/2024 Lab Requisition [facility] - Main Lab [address] [facility] [place] [address] Catalina Burr MD [address] [place] [address] End stage renal disease (CMS/HCC V24, CMS/HCC [...] 6:53 AM EST End stage renal disease (CMS/[facility]) documented in this encounter Results * Tacrolimus level (03/29/2024 6:53 AM EST) Tacrolimus Level 6.8 5.0 - 20.0 ng/mL 03/31/2024 12:22 PM EST [facility] Comment: Additional Information: Toxic Level > [...] at [facility], [address] , [place] [address] Ashtyn Leigh MD, PhD - Comic Book Designer Blood Venous blood specimen / Unknown Venipuncture / Unknown 03/29/2024 6:53 AM EST 03/29/2024 8:32 AM EST us Catalina Burr MD LAB BLOOD ORDERABLES Final Resul t [facility] [address] [place] [address] * (ABNORMAL) Renal function panel (03/29/2024 6:53 [...] [facility] Comment:Calculation based on the [...] Resul t [facility] [address] [place] [address], [place] [phone] * (ABNORMAL) Complete blood count (03/29/2024 6:53 AM EST) WBC 11.0(H) 4.8 - 10.8 K/mcL LAB HEMETOLOGY METHOD 03/29/2024 9:47 AM [facility] RBC 2.80(L) 3.80 - 4.80 M/[facility] LAB HEMETOLOGY METHOD 03/29/2024 9:47 AM [...] CENTER LAB Platelets 301 130 - 400 K/[facility] LAB HEMETOLOGY METHOD 03/29/2024 9:47 AM [...] LAB BLOOD ORDERABLES Final Resul t [facility] ([facility]) [facility] [address] [place] [address], documented in this encounter Visit Diagnoses Diagnosis End stage renal disease (CMS/HCC V24, CMS/HCC V28) End stage renal disease documented in this encounter Care Teams Residential Sales Representative Relationship Specialty Start Date End Date Marita Wetzel DO [address] [place] [address] PCP - General 01/09/23 documented as of this encounter
--- OUTSIDE RECORDS SUMMARY | 2025-01-19 13:46 | XMS_ITS | Clinical Summary ---
Author Organization [address] Address [address] [place] [address] Phone Care Team Providers Care Metal Template Maker Name Role Phone DamariMarita Scottie MARROQUIN Primary Care Provider +1- [phone] Immunizations Immunization Administration Dates Next Due Moderna SARS-CoV-2 COVID-19, [...] Last Done Comments Breast Cancer Screening 1960 Colorectal Cancer Screening: Colonoscopy 1960 Diabetes: Annual Foot Exam 1970 Diabetes: Annual Retina Eye Exam 1970 Cervical Cancer Screening: Pap Smear 1981 RSV Immunization Adult Patients (1 - Risk 60-74 years 1-dose series) 2020 Zoster Vaccines (1 of 2) 11/14/2021 09/19/2021, 0210/2021 HIV Screening 05/16/2023 Medicare Annual Wellness Visit [...] mmol/L LAB CHEMISTRY METHOD 05/10/2024 11:45 AM [facility] Potassium 3.8 3.5 - 5.5 mmol/L LAB CHEMISTRY METHOD 05/10/2024 11:45 AM [facility] Chloride 96 96 - 110 mmol/L LAB CHEMISTRY METHOD 05/10/2024 11:45 AM [facility] CO2 28 21 - 32 mmol/L LAB CHEMISTRY METHOD 05/10/2024 11:45 AM [facility] Anion Gap 11 3 - 11 LAB CHEMISTRY METHOD 05/10/2024 11:45 AM [facility] Glucose 215(H) 70 - 100 mg/dL LAB CHEMISTRY METHOD 05/10/2024 11:45 AM [facility] BUN 45(H) 5 - 25 mg/dL LAB CHEMISTRY METHOD 05/10/2024 11:45 AM [facility] Creatinine 3.47(H) 0.50 - 1.10 mg/dL LAB CHEMISTRY METHOD 05/10/2024 11:45 AM [facility] eGFR 14(L) >=60 mL/min/1. 73m2 LAB CHEMISTRY METHOD 05/10/2024 11:45 AM [facility] Comment:Calculation based on the Chronic Kidney Disease Epidemiology Collaboration (CKD-EPI) equation refit without adjustment for race. BUN/Creatinine Ratio 13.0 LAB CHEMISTRY METHOD 05/10/2024 11:45 AM [facility] Albumin 1.7(L) 3.2 - 5.0 g/dL LAB CHEMISTRY METHOD 05/10/2024 11:45 AM [facility] Calcium 8.4(L) 8.5 - 10.5 mg/dL LAB CHEMISTRY METHOD 05/10/2024 11:45 AM EST [facility] ([facility] Phosphorus 2.1(L) 2.5 - 4.5 mg/dL LAB CHEMISTRY METHOD 05/10/2024 11:45 AM EST [facility] Blood Venous blood specimen / Unknown Venipuncture / Unknown 05/10/2024 5:50 AM EST 05/10/2024 9:58 AM EST us Marily Gordillo MD LAB BLOOD ORDERABLES Final Resul t [facility] ([facility]) [facility] [address] [place] [address], from Last 3 Months or Most Recently Relevant to Health Maintenance Insurance MEDICARE Care Teams Metal Template Maker Relationship Specialty Start Date End Date Marita Wetzel DO [address] [place] [address] PCP - General 01/09/23
--- OUTSIDE RECORDS SUMMARY | 2025-01-19 13:46 | XMS_ITS | Encounter Summary ---
Author Organization [facility] Address [address] [place] [address] Care Team Providers Care Bus Repair Supervisor Name Role Phone Marita Wetzel Primary Care Provider +1- [phone] Encounter Details Date Type Department Care Team (Late st Contact Info) Description 04/17/2024 Lab Requisition [facility] - Main Lab [address] [facility] [place] [address] Catalina Burr MD [address] [place], [place] [phone] End stage renal disease (CMS/HCC V24, CMS/HCC [...] Of [facility], [address] , [place] [address] Ashtyn Leigh MD, PhD - Passenger Flagman Blood Venous blood specimen / Unknown Venipuncture / Unknown 04/17/2024 5:33 AM EST 04/17/2024 9:33 AM EST us Catalina Burr MD LAB BLOOD ORDERABLES Final Resul t [facility] [address] [place] [address] * (ABNORMAL) Reticulocyte count (04/17/2024 5:33 AM [...] Resul t [facility] [address] [place] [address], [place] [phone] * (ABNORMAL) Comprehensive metabolic panel (04/17/2024 5:33 [...] Resul t [facility] [address] [place] [address], * (ABNORMAL) Complete blood count (04/17/2024 5:33 AM EST) [facility] WBC 9.3 4.8 - 10.8 K/mcL [...] 04/17/2024 10:42 AM [facility] MCHC 27.4(L) 32.0 - [...] Resul t [facility] [address] [place] [address], documented in this encounter Visit Diagnoses Diagnosis End stage renal disease (CMS/HCC V24, CMS/HCC V28) End stage renal disease Anemia, unspecified documented in this encounter Care Teams Bus Repair Supervisor Relationship Specialty Start Date End Date Marita Wetzel DO [address] [place] [address] PCP - General 01/09/23 documented as of this encounter
--- OUTSIDE RECORDS SUMMARY | 2025-01-19 13:46 | XMS_ITS | Encounter Summary ---
Author Organization [facility] Address [address] [place] [address] Care Team Providers Care Abnormal Psychology Teacher Name Role Phone Marita Wetzel Primary Care Provider +1- [phone] Encounter Details Date Type Department Care Team (Late st Contact Info) Description 04/30/2024 Lab Requisition [facility] - Main Lab [address] [place] [phone] Marily Gordillo MD [address] [place] [address] Chronic embolism and thrombosis of [...] LAB CHEMISTRY METHOD 05/03/2024 10:39 AM EST [facility] Potassium 5.1 3.5 - 5.5 mmol/L LAB CHEMISTRY METHOD 05/03/2024 10:39 AM [facility] Chloride 99 96 - 110 mmol/L LAB CHEMISTRY METHOD 05/03/2024 10:39 AM [facility] CO2 28 21 - 32 mmol/L LAB CHEMISTRY METHOD 05/03/2024 10:39 AM [facility] Anion Gap 7 3 - 11 LAB CHEMISTRY METHOD 05/03/2024 10:39 AM [facility] Glucose 133(H) 70 - 100 mg/dL LAB CHEMISTRY METHOD 05/03/2024 10:39 AM [facility] BUN 40(H) 5 - 25 mg/dL LAB CHEMISTRY METHOD 05/03/2024 10:39 AM [facility] Creatinine 3.27(H) 0.50 - 1.10 mg/dL LAB CHEMISTRY METHOD 05/03/2024 10:39 AM [facility] eGFR 15(L) >=60 mL/min/1. 73m2 LAB CHEMISTRY METHOD 05/03/2024 10:39 AM [facility] Comment:Calculation based on the Chronic Kidney Disease Epidemiology Collaboration (CKD-EPI) equation refit without adjustment for race. BUN/Creatinine Ratio 12.2 LAB CHEMISTRY METHOD 05/03/2024 10:39 AM [facility] Albumin 2.1(L) 3.2 - 5.0 g/dL LAB CHEMISTRY METHOD 05/03/2024 10:39 AM [facility] Calcium 8.6 8.5 - 10.5 mg/dL LAB CHEMISTRY METHOD 05/03/2024 10:39 AM [facility] Phosphorus 1.8(L) 2.5 - 4.5 mg/dL LAB CHEMISTRY METHOD 05/03/2024 10:39 AM [facility] Blood Venous blood specimen / Unknown Venipuncture / Unknown 05/03/2024 6:09 AM EST 05/03/2024 9:28 AM EST Marily Gordillo MD LAB BLOOD ORDERABLES Final Resul t Performing Organization Address City/[facility]/ZIP Co de Phone Number [facility]) [facility] [address] [place] [address], * Tacrolimus level (05/03/2024 6:09 AM EST) [...] investigational or for research. Test performed at [facility], [address] , [place] [address] Ashtyn Leigh MD, PhD - System Operator Blood Venous blood specimen / Unknown Venipuncture / Unknown 05/03/2024 6:09 AM EST 05/03/2024 9:28 AM EST Marily Gordillo MD LAB BLOOD ORDERABLES Final Resul t [facility] [address] [place] [address] documented in this encounter Visit Diagnoses Diagnosis Chronic embolism and thrombosis of unspecified vein Acute kidney failure, unspecified (CMS/HCC V24) Acute kidney failure, unspecified documented in this encounter Care Teams Abnormal Psychology Teacher Relationship Specialty Start Date End Date Marita Wetzel DO [address] [place] [address] PCP - General 01/09/23 documented as of this encounter
--- OUTSIDE RECORDS SUMMARY | 2025-01-19 13:46 | XMS_ITS | Encounter Summary ---
Author Organization [facility] Address [address] [place] [address] Care Team Providers Care Administrative Representative Name Role Phone Marita Wetzel DO Primary Care Provider +1- [phone] Encounter Details Date Type Department Care Team (Late st Contact Info) Description 03/15/2024 Lab Requisition [facility] - Main Lab [address] [facility] [place] [phone] Catalina Burr MD [address] [place] [address] Acute kidney failure, unspecified (CMS/HCC V24); Chronic [...] vein documented in this encounter Care Teams Administrative Representative Relationship Specialty Start Date End Date Marita Wetzel DO [address] [place], [place] PCP - General 01/09/23 documented as of this encounter
--- OUTSIDE RECORDS SUMMARY | 2025-01-19 13:46 | XMS_ITS | Encounter Summary ---
Author Organization [facility] Address [address] [place] [address] Care Team Providers Care Fruit Grader Name Role Phone Marita Wetzel DO Primary Care Provider +1- [phone] Encounter Details Date Type Department Care Team (Late st Contact Info) Description 2024 Lab Requisition [facility] - Main Lab 299 [facility] [place] [phone] Marily Gordillo MD [address] [place] [address] Chronic kidney disease, unspecified; Anemia, [...] unspecified documented in this encounter Care Teams Fruit Grader Relationship Specialty Start Date End Date Marita Wetzel DO [address] [place] [address] PCP - General 01/09/23 documented as of this encounter
--- OUTSIDE RECORDS SUMMARY | 2025-01-19 13:46 | XMS_ITS | Encounter Summary ---
Author Organization [facility] Address [address] [place] [address] Care Team Providers Care Barrel Rifler Broach Name Role Phone Mary JaneMarita yousif Primary Care Provider +1- [phone] Encounter Details Date Type Department Care Team (Late st Contact Info) Description 03/05/[address] [facility] - Main Lab [address] [facility] [place] [address] Catalina Burr MD [address] [place] [address] Chronic embolism and thrombosis of unspecified vein; [...] - 20.0 ng/mL 03/10/2024 1:48 PM EST [facility] Comment: Additional Information: Toxic Level > [...] performance characteristics determined by [facility]. This confirmation testing has not been cleared or approved by the FDA. The laboratory is regulated under CLIA as qualified to perform high-complexity testing. This test is used for patient testing purposes. It should not be regarded as investigational or for research. Test performed at [facility], [address], [place], [place] [id number] Ashtyn Leigh MD, PhD - Financial Planning Adviser Blood Venous blood specimen / Unknown Venipuncture / Unknown 03/08/2024 6:29 AM EST 03/08/2024 7:46 AM EST us Catalina Burr MD LAB BLOOD ORDERABLES Final Resul t [facility] [address] [place] [address] * (ABNORMAL) Renal function panel (03/08/2024 6:29 AM EST) Sodium 139 133 - 145 mmol/L LAB CHEMISTRY METHOD 03/08/2024 8:58 AM EST [facility] Potassium 4.5 3.5 - 5.5 mmol/L LAB CHEMISTRY METHOD 03/08/2024 8:58 AM [facility] Chloride 108 96 - 110 mmol/L LAB CHEMISTRY METHOD 03/08/2024 8:58 AM [facility] CO2 20(L) 21 - 32 mmol/L LAB CHEMISTRY METHOD 03/08/2024 8:58 AM [facility] Anion Gap 11 3 - 11 LAB CHEMISTRY METHOD 03/08/2024 8:58 AM [facility] Glucose 93 70 - 100 mg/dL LAB CHEMISTRY METHOD 03/08/2024 8:58 AM [facility] BUN 35(H) 5 - 25 mg/dL LAB CHEMISTRY METHOD 03/08/2024 8:58 AM [facility] Creatinine 3.99(H) 0.50 - 1.10 mg/dL LAB CHEMISTRY METHOD 03/08/2024 8:58 AM [facility] eGFR 12(L) >=60 mL/min/1. 73m2 LAB CHEMISTRY METHOD 03/08/2024 8:58 AM [facility] Comment:Calculation based on the Chronic Kidney Disease Epidemiology Collaboration (CKD-EPI) equation refit without adjustment for race. BUN/Creatinine Ratio 8.8 LAB CHEMISTRY METHOD 03/08/2024 8:58 AM [facility] Albumin 2.3(L) 3.2 - 5.0 g/dL LAB CHEMISTRY METHOD 03/08/2024 8:58 AM [facility] Calcium 9.0 8.5 - 10.5 mg/dL LAB CHEMISTRY METHOD 03/08/2024 8:58 AM [facility] Phosphorus 3.2 2.5 - 4.5 mg/dL LAB CHEMISTRY METHOD 03/08/2024 8:58 AM [facility] Blood Venous blood specimen / Unknown Venipuncture / Unknown 03/08/2024 6:29 AM EST 03/08/2024 7:46 AM EST Catalina Burr MD LAB BLOOD ORDERABLES Final Resul t [facility] [address] [place] [address], * (ABNORMAL) Complete blood count (03/08/2024 6:29 AM EST) WBC 9.8 4.8 - 10.8 K/mcL LAB HEMETOLOGY METHOD 03/08/2024 8:10 AM EST [facility] RBC 2.90(L) 3.80 - 4.80 M/mcL LAB HEMETOLOGY METHOD 03/08/2024 8:10 AM EST [facility] Hemoglobin 7.9(L) 11.5 - 16.0 g/dL LAB HEMETOLOGY METHOD 03/08/2024 8:10 AM EST [facility] Hematocrit 28.5(L) 35.0 - 47.0 % LAB HEMETOLOGY METHOD 03/08/2024 8:10 AM EST [facility] MCV 99.3(H) 79.0 - 98.0 FL LAB HEMETOLOGY METHOD 03/08/2024 8:10 AM EST [facility] MCH 27.5 27.0 - 32.0 pcg LAB HEMETOLOGY METHOD 03/08/2024 8:10 AM [facility] MCHC 27.7(L) 32.0 - 37.0 g/dL LAB HEMETOLOGY METHOD 03/08/2024 8:10 AM [facility] RDW 17.2(H) 11.0 - 15.0 % LAB HEMETOLOGY METHOD 03/08/2024 8:10 AM [facility] Platelets 299 130 - 400 K/mcL LAB HEMETOLOGY METHOD 03/08/2024 8:10 AM [facility] MPV 11.5(H) 7.0 - 11.0 FL LAB HEMETOLOGY METHOD 03/08/2024 8:10 AM EST [facility] NRBC 0.0 <1.0 % LAB HEMETOLOGY METHOD 03/08/2024 8:10 AM EST [facility] NRBC Absolute 0.00 <0.10 K/mcL LAB HEMETOLOGY METHOD 03/08/2024 8:10 AM EST [facility] Blood Venous blood specimen / Unknown Venipuncture / Unknown 03/08/2024 6:29 AM EST 03/08/2024 7:46 AM EST us Catalina Burr MD LAB BLOOD ORDERABLES Final Resul t [facility] [address] [place] [address], [place] [phone] documented in this encounter Visit Diagnoses Diagnosis Chronic embolism and thrombosis of unspecified vein Acute kidney failure, unspecified (CMS/HCC V24) Acute kidney failure, unspecified Type 2 diabetes mellitus without complications (CMS/HCC V24, CMS/HCC V28) documented in this encounter Care Teams Barrel Rifler Broach Relationship Specialty Start Date End Date Marita Wetzel DO [address] [place] [address] PCP - General 01/09/23 documented as of this encounter
--- OUTSIDE RECORDS SUMMARY | 2025-01-19 13:46 | XMS_ITS | Encounter Summary ---
Author Organization [facility] Address [address] [place] [address] Care Team Providers Care Electromechanic Name Role Phone Mary JaneMarita yousif Primary Care Provider +1- [phone] Encounter Details Date Type Department Care Team (Late st Contact Info) Description 03/19/2024 Lab Requisition [facility] - Main Lab 299 [facility] [place] [address] Catalina Burr MD [address] [place] [address] Chronic embolism and thrombosis of unspecified vein; [...] - 20.0 ng/mL 03/24/2024 1:11 PM EST [facility] Comment: Additional Information: Toxic Level > [...] determined by [facility]. This confirmation testing has not been cleared or approved by the FDA. The laboratory is regulated under CLIA as qualified to perform high-complexity testing. This test is used for patient testing purposes. It should not be regarded as investigational or for research. Test performed at [facility], [address], [place], [place] [id number] Ashtyn Leigh MD, PhD - Drafter Mechanical Blood Venous blood specimen / Unknown Venipuncture / Unknown 03/22/2024 6:50 AM EST 03/22/2024 8:05 AM EST us Catalina Burr MD LAB BLOOD ORDERABLES Final Resul t [facility] [address] [address] * (ABNORMAL) Renal function panel (03/22/2024 6:50 AM EST) Sodium 138 133 - 145 mmol/L LAB CHEMISTRY METHOD 03/22/2024 8:55 AM EST [facility] Potassium 4.6 3.5 - 5.5 mmol/L [...] t [facility] [address] [place] [address], * (ABNORMAL) Complete blood count (03/22/2024 6:50 AM EST) WBC 10.4 4.8 - 10.8 K/mcL LAB HEMETOLOGY METHOD 03/22/2024 8:32 AM EST [facility] RBC 2.80(L) 3.80 [...] LAB HEMETOLOGY METHOD 03/22/2024 8:32 AM EST [facility] NRBC 0.0 <1.0 % LAB HEMETOLOGY METHOD 03/22/2024 8:32 AM EST [facility] NRBC Absolute 0.00 <0.10 K/mcL LAB HEMETOLOGY METHOD 03/22/2024 8:32 AM EST [facility] Blood Venous blood specimen / Unknown Venipuncture / Unknown 03/22/2024 6:50 AM EST 03/22/2024 8:05 AM EST us Catalina Burr MD LAB BLOOD ORDERABLES Final Resul t [facility] [address] [place] [address], [place] [phone] documented in this encounter Visit Diagnoses Diagnosis Chronic embolism and thrombosis of unspecified vein Acute kidney failure, unspecified (CMS/HCC V24) Acute kidney failure, unspecified Type 2 diabetes mellitus without complications (CMS/HCC V24, CMS/HCC V28) documented in this encounter Care Teams Electromechanic Relationship Specialty Start Date End Date Marita Wetzel DO [address] [place] [address] PCP - General 01/09/23 documented as of this encounter
--- OUTSIDE RECORDS SUMMARY | 2025-01-19 13:46 | XMS_ITS | Encounter Summary ---
Author Organization [facility] Address [address] [place] [address] Care Team Providers Care Box Printer Name Role Phone Marita Wetzel Primary Care Provider +1- [phone] Encounter Details Date Type Department Care Team (Late st Contact Info) Description 04/23/2024 Lab Requisition [facility] - Main Lab [address] [place] [phone] Marily Gordillo MD [address] [place] [address] Chronic embolism and thrombosis of [...] LAB CHEMISTRY METHOD 04/26/2024 9:11 AM EST [facility] Potassium 3.4(L) 3.5 - 5.5 mmol/L LAB CHEMISTRY METHOD 04/26/2024 9:11 AM EST [facility] Chloride 109 96 - 110 mmol/L LAB CHEMISTRY METHOD 04/26/2024 9:11 AM [facility] CO2 27 21 - 32 mmol/L LAB CHEMISTRY METHOD 04/26/2024 9:11 AM [facility] Anion Gap 7 3 - 11 LAB CHEMISTRY METHOD 04/26/2024 9:11 AM [facility] Glucose 80 70 - 100 mg/dL LAB CHEMISTRY METHOD 04/26/2024 9:11 AM [facility] BUN 29(H) 5 - 25 mg/dL LAB CHEMISTRY METHOD 04/26/2024 9:11 AM [facility] Creatinine 3.36(H) 0.50 - 1.10 mg/dL LAB CHEMISTRY METHOD 04/26/2024 9:11 AM [facility] eGFR 15(L) >=60 mL/min/1. 73m2 LAB CHEMISTRY METHOD 04/26/2024 9:11 AM [facility] Comment:Calculation based on the Chronic Kidney Disease Epidemiology Collaboration (CKD-EPI) equation refit without adjustment for race. BUN/Creatinine Ratio 8.6 LAB CHEMISTRY METHOD 04/26/2024 9:11 AM [facility] Albumin 2.1(L) 3.2 - 5.0 g/dL LAB CHEMISTRY METHOD 04/26/2024 9:11 AM [facility] Calcium 8.7 8.5 - 10.5 mg/dL LAB CHEMISTRY METHOD 04/26/2024 9:11 AM [facility] Phosphorus 2.5 2.5 - 4.5 mg/dL LAB CHEMISTRY METHOD 04/26/2024 9:11 AM [facility] Blood Venous blood specimen / Unknown Venipuncture / Unknown 04/26/2024 6:18 AM EST 04/26/2024 8:28 AM EST Marily Gordillo MD LAB BLOOD ORDERABLES Final Resul t [facility] [address] [place] [address], documented in this encounter Visit Diagnoses Diagnosis Chronic embolism and thrombosis of unspecified vein Acute kidney failure, unspecified (CMS/HCC V24) Acute kidney failure, unspecified documented in this encounter Care Teams Box Printer Relationship Specialty Start Date End Date Marita Wetzel DO [address] [place] [address] PCP - General 01/09/23 documented as of this encounter
--- OUTSIDE RECORDS SUMMARY | 2025-01-19 13:46 | XMS_ITS | Encounter Summary ---
Author Organization [facility], Address [address] [place] [address] Phone Care Team Providers Care Counter Waitress/Waiter Name Role Phone Marita Wetzel DO Primary Care Provider Unava ilable Encounter Details Date Type Department Care Team (Late st Contact Info) Description 06/23/2023 Documentation Only [facility] [address] [place] [address] [place], [place] [address] [place] [phone] Social History Tobacco Use Types Packs/Day Years [...] [facility] [address] [place] [address] 03/08/2025 12:30 PM EST Scheduled Only [facility] [address] [place] [address] 07/12/2025 1:00 PM EDT Scheduled Only [facility] [address] [place] [address] documented as of this encounter Visit Diagnoses Not on filedocumented in this encounter Care Teams Counter Waitress/Waiter Relationship Specialty Start Date End Date Marita Wetzel DO [address] [place] [address] PCP - General Family Medicine 11/14/22 documented as of this encounter
--- OUTSIDE RECORDS SUMMARY | 2025-01-19 13:46 | XMS_ITS | Encounter Summary ---
Author Organization [facility] Address [address] [place] [address] Care Team Providers Care Still Operator Gin Name Role Phone Marita Wetzel Primary Care Provider +1- [phone] Encounter Details Date Type Department Care Team (Late st Contact Info) Description 02/25/2024 Lab Requisition [facility] - Main Lab [address] [facility] [place] [address] Catalina Burr MD [address] [place] [address] Chronic embolism and thrombosis of unspecified vein; [...] Travel phlebotomy fee (02/25/2024 6:30 AM EST) [facility] TRAVEL PHLEBOTOMY FEE Completed 02/25/2024 11:01 AM EST [facility] Blood Venous blood specimen / Unknown Venipuncture / Unknown 02/25/2024 6:30 AM EST 02/25/2024 10:25 AM EST Catalina Burr MD LAB BLOOD ORDERABLES Final Resul t Performing Organization Address [facility] de Phone Number [facility] [address] [place] [address], * (ABNORMAL) Tacrolimus level (02/25/2024 6:30 AM EST) Tacrolimus Level 3.8(L) 5.0 - 20.0 ng/mL 02/28/2024 12:37 PM EST [facility] Comment: Additional Information: [...] developed and the performance characteristics determined by [facility]. This confirmation testing has not been cleared or approved by the FDA. The laboratory is regulated under CLIA as qualified to perform high-complexity testing. This test is used for patient testing purposes. It should not be regarded as investigational or for research. Test performed at [facility], [address], [place], [place] [id number] Ashtyn Leigh MD, PhD - Turret Lathe Set Up Operator Blood Venous blood specimen / Unknown Venipuncture / Unknown 02/25/2024 6:30 AM EST 02/25/2024 10:25 AM EST Catalina Burr MD LAB BLOOD ORDERABLES Final Resul t Performing Organization Address City/[facility]/ZIP Co de Phone Number [facility] [address] [place], [place] [phone] documented in this encounter Visit Diagnoses Diagnosis Chronic embolism and thrombosis of unspecified vein Acute kidney failure, unspecified (CMS/[facility] V24) Acute kidney failure, unspecified documented in this encounter Care Teams Still Operator Gin Relationship Specialty Start Date End Date Marita Wetzel DO [address] [place] [address] PCP - General 01/09/23 documented as of this encounter
--- OUTSIDE RECORDS SUMMARY | 2025-01-19 13:46 | XMS_ITS | Encounter Summary ---
Author Organization [facility] Address [address] [place] [address] Care Team Providers Care Coal Washer Tender Name Role Phone Marita Wetzel Primary Care Provider +1- [phone] Encounter Details Date Type Department Care Team (Late st Contact Info) Description 04/17/2024 Lab Requisition [facility] - Main Lab 299 [facility] [place] [phone] Marily Gordillo MD [address] [place] [address] Chronic embolism and thrombosis of [...] - 20.0 ng/mL 04/22/2024 11:22 AM EST [facility] Comment: Additional Information: Toxic [...] investigational or for research. Test performed at [facility], [address], [place] [address] Ashtyn Leigh MD, PhD - Lean Manager Blood Venous blood specimen / Unknown Venipuncture / Unknown 04/19/2024 6:21 AM EST 04/19/2024 8:33 AM EST us Marily Gordillo MD LAB BLOOD ORDERABLES Final Resul t [facility] [address] [address] * (ABNORMAL) Renal function panel (04/19/2024 6:21 AM EST) Pathologist [facility] Sodium 144 133 - 145 mmol/L LAB CHEMISTRY METHOD 04/19/2024 9:42 AM EST [facility] Potassium 3.3(L) 3.5 - 5.5 mmol/L LAB CHEMISTRY METHOD 04/19/2024 9:42 AM EST [facility] Chloride 114(H) 96 - 110 mmol/L LAB CHEMISTRY METHOD 04/19/2024 9:42 AM EST [facility] CO2 22 21 - 32 mmol/L LAB CHEMISTRY METHOD 04/19/2024 9:42 AM [facility] Anion Gap 8 3 - 11 LAB CHEMISTRY METHOD 04/19/2024 9:42 AM [facility] Glucose 177(H) 70 - 100 mg/dL LAB CHEMISTRY METHOD 04/19/2024 9:42 AM [facility] BUN 42(H) 5 - 25 mg/dL LAB CHEMISTRY METHOD 04/19/2024 9:42 AM [facility] Creatinine 3.65(H) 0.50 - 1.10 mg/dL LAB CHEMISTRY METHOD 04/19/2024 9:42 AM [facility] eGFR 13(L) >=60 mL/min/1. 73m2 LAB CHEMISTRY METHOD 04/19/2024 9:42 AM [facility] Comment:Calculation based on the Chronic Kidney Disease Epidemiology Collaboration (CKD-EPI) equation refit without adjustment for race. BUN/Creatinine Ratio 11.5 LAB CHEMISTRY METHOD 04/19/2024 9:42 AM [facility] Albumin 2.0(L) 3.2 - 5.0 g/dL LAB CHEMISTRY METHOD 04/19/2024 9:42 AM [facility] Calcium 8.5 8.5 - 10.5 mg/dL LAB CHEMISTRY METHOD 04/19/2024 9:42 AM [facility] Phosphorus 2.6 2.5 - 4.5 mg/dL LAB CHEMISTRY METHOD 04/19/2024 9:42 AM [facility] Blood Venous blood specimen / Unknown Venipuncture / Unknown 04/19/2024 6:21 AM EST 04/19/2024 8:33 AM EST us Marily Gordillo MD LAB BLOOD ORDERABLES Final Resul t [facility] [address] [place] [address], * (ABNORMAL) Complete blood count (04/19/2024 6:21 AM EST) [facility] WBC 12.0(H) 4.8 - 10.8 K/mcL LAB HEMETOLOGY METHOD 04/19/2024 9:26 AM [facility] RBC 2.80(L) 3.80 - 4.80 M/mcL LAB HEMETOLOGY METHOD 04/19/2024 9:26 AM [facility] Hemoglobin 7.6(L) 11.5 - 16.0 g/dL LAB HEMETOLOGY METHOD 04/19/2024 9:26 AM [facility] Hematocrit 27.3(L) 35.0 - 47.0 % LAB HEMETOLOGY METHOD 04/19/2024 9:26 AM [facility] MCV 98.2(H) 79.0 - 98.0 FL LAB HEMETOLOGY METHOD 04/19/2024 9:26 AM [facility] MCH 27.3 27.0 - 32.0 pcg LAB HEMETOLOGY METHOD 04/19/2024 9:26 AM [facility] MCHC 27.8(L) 32.0 - 37.0 g/dL LAB HEMETOLOGY METHOD 04/19/2024 9:26 AM [facility] RDW 16.6(H) 11.0 - 15.0 % LAB HEMETOLOGY METHOD 04/19/2024 9:26 AM [facility] Platelets 230 130 - 400 K/mcL LAB HEMETOLOGY METHOD 04/19/2024 9:26 AM [facility] MPV 10.9 7.0 - 11.0 FL LAB HEMETOLOGY METHOD 04/19/2024 9:26 AM [facility] NRBC 0.0 <1.0 % LAB HEMETOLOGY METHOD 04/19/2024 9:26 AM [facility] NRBC Absolute 0.00 <0.10 K/mcL LAB HEMETOLOGY METHOD 04/19/2024 9:26 AM EST [facility] Blood Venous blood specimen / Unknown Venipuncture / Unknown 04/19/2024 6:21 AM EST 04/19/2024 8:33 AM EST us Marily Gordillo MD LAB BLOOD ORDERABLES Final Resul t [facility] [address] [place] [address], documented in this encounter Visit Diagnoses Diagnosis Chronic embolism and thrombosis of unspecified vein Acute kidney failure, unspecified (CMS/HCC V24) Acute kidney failure, unspecified documented in this encounter Care Teams Coal Washer Tender Relationship Specialty Start Date End Date Marita Wetzel DO [address] [place] [address] PCP - General 01/09/23 documented as of this encounter
--- OUTSIDE RECORDS SUMMARY | 2025-01-19 13:46 | XMS_ITS | Encounter Summary ---
Author Organization [facility] Address [address] [place] [address] Care Team Providers Care Crisis Counselor Name Role Phone Mary JaneMarita yousif Primary Care Provider +1- [phone] Encounter Details Date Type Department Care Team (Late st Contact Info) Description 03/12/2024 Lab Requisition [facility] - Main Lab [address] [facility] [place] [address] Catalina Burr MD [address] [place], [place] [phone] Chronic embolism and thrombosis of unspecified vein; [...] - 20.0 ng/mL 03/17/2024 1:34 PM EST [facility] Comment: Additional Information: Toxic Level [...] performed at [facility], [address], [place] [address] Ashtyn Leigh MD, PhD - Local Coordinator Blood Venous blood specimen / Unknown Venipuncture / Unknown 03/15/2024 8:20 AM EST 03/15/2024 10:20 AM EST Catalina Burr MD LAB BLOOD ORDERABLES Final Resul t [facility] [address] [place] [address] * (ABNORMAL) Renal function panel (03/15/2024 8:20 AM EST) Pathologist [facility] Sodium 139 133 - 145 mmol/L LAB CHEMISTRY METHOD 03/15/2024 11:31 AM EST [facility] Potassium 5.6(H) 3.5 - 5.5 mmol/L LAB CHEMISTRY METHOD 03/15/2024 11:31 AM EST [facility] Chloride 108 96 - 110 mmol/L LAB CHEMISTRY METHOD 03/15/2024 11:31 AM EST [facility] CO2 19(L) 21 - 32 mmol/L LAB CHEMISTRY METHOD 03/15/2024 11:31 AM [facility] Anion Gap 12(H) 3 - 11 LAB CHEMISTRY METHOD 03/15/2024 11:31 AM [facility] Glucose 105(H) 70 - 100 mg/dL LAB CHEMISTRY METHOD 03/15/2024 11:31 AM [facility] BUN 36(H) 5 - 25 mg/dL LAB CHEMISTRY METHOD 03/15/2024 11:31 AM [facility] Creatinine 3.97(H) 0.50 - 1.10 mg/dL LAB CHEMISTRY METHOD 03/15/2024 11:31 AM [facility] eGFR 12(L) >=60 mL/min/1. 73m2 LAB CHEMISTRY METHOD 03/15/2024 11:31 AM [facility] Comment:Calculation based on the Chronic Kidney Disease Epidemiology Collaboration (CKD-EPI) equation refit without adjustment for race. BUN/Creatinine Ratio 9.1 LAB CHEMISTRY METHOD 03/15/2024 11:31 AM [facility] Albumin 2.6(L) 3.2 - 5.0 g/dL LAB CHEMISTRY METHOD 03/15/2024 11:31 AM [facility] Calcium 9.5 8.5 - 10.5 mg/dL LAB CHEMISTRY METHOD 03/15/2024 11:31 AM [facility] Phosphorus 4.0 2.5 - 4.5 mg/dL LAB CHEMISTRY METHOD 03/15/2024 11:31 AM [facility] Blood Venous blood specimen / Unknown Venipuncture / Unknown 03/15/2024 8:20 AM EST 03/15/2024 10:16 AM EST us Catalina Burr MD LAB BLOOD ORDERABLES Final Resul t [facility] [address] [place] [address], [place] [phone] documented in this encounter Visit Diagnoses Diagnosis Chronic embolism and thrombosis of unspecified vein Acute kidney failure, unspecified (CMS/[facility] V24) Acute kidney failure, unspecified Type 2 diabetes mellitus without complications ([facility] V24, CMS/[facility] V28) documented in this encounter Care Teams Crisis Counselor Relationship Specialty Start Date End Date Marita Wetzel DO [address] [place] [address] PCP - General 01/09/23 documented as of this encounter
--- OUTSIDE RECORDS SUMMARY | 2025-01-19 13:46 | XMS_ITS | Encounter Summary ---
Author Organization [facility] Address [address] [place] [address] Care Team Providers Care Doctor Of Optometry Name Role Phone Marita Wetzel Primary Care Provider +1- [phone] Encounter Details Date Type Department Care Team (Late st Contact Info) Description 04/20/2024 Lab Requisition [facility] - Main Lab [address] [place] [phone] Marily Gordillo MD [address] [place] [address] Chronic kidney disease, unspecified; Anemia, [...] LAB CHEMISTRY METHOD 04/22/2024 11:50 AM EST [facility] Potassium 3.5 3.5 - 5.5 mmol/L LAB CHEMISTRY METHOD 04/22/2024 11:50 AM [facility] Chloride 112(H) 96 - 110 mmol/L LAB CHEMISTRY METHOD 04/22/2024 11:50 AM [facility] CO2 23 21 - 32 mmol/L LAB CHEMISTRY METHOD 04/22/2024 11:50 AM [facility] Anion Gap 8 3 - 11 LAB CHEMISTRY METHOD 04/22/2024 11:50 AM [facility] Glucose 135(H) 70 - 100 mg/dL LAB CHEMISTRY METHOD 04/22/2024 11:50 AM [facility] BUN 43(H) 5 - 25 mg/dL LAB CHEMISTRY METHOD 04/22/2024 11:50 AM [facility] Creatinine 3.79(H) 0.50 - 1.10 mg/dL LAB CHEMISTRY METHOD 04/22/2024 11:50 AM [facility] eGFR 13(L) >=60 mL/min/1. 73m2 LAB CHEMISTRY METHOD 04/22/2024 11:50 AM [facility] Comment:Calculation based on the Chronic Kidney Disease Epidemiology Collaboration (CKD-EPI) equation refit without adjustment for race. BUN/Creatinine Ratio 11.3 LAB CHEMISTRY METHOD 04/22/2024 11:50 AM [facility] Calcium 8.6 8.5 - 10.5 mg/dL LAB CHEMISTRY METHOD 04/22/2024 11:50 AM [facility] AST (SGOT) 9(L) 10 - 42 unit/L LAB CHEMISTRY METHOD 04/22/2024 11:50 AM [facility] ALT (SGPT) 9(L) 10 - 60 unit/L LAB CHEMISTRY METHOD 04/22/2024 11:50 AM [facility] Alkaline Phosphatase 59 42 - 121 unit/L LAB CHEMISTRY METHOD 04/22/2024 11:50 AM [facility] Total Protein 5.8(L) 6.0 - 8.0 g/dL LAB CHEMISTRY METHOD 04/22/2024 11:50 AM [facility] Albumin 2.0(L) 3.2 - 5.0 g/dL LAB CHEMISTRY METHOD 04/22/2024 11:50 AM [facility] Total Bilirubin 0.3 0.0 - 1.4 mg/dL LAB CHEMISTRY METHOD 04/22/2024 11:50 AM [facility] Blood Venous blood specimen / Unknown Venipuncture / Unknown 04/22/2024 7:09 AM EST 04/22/2024 9:42 AM EST Marily Gordillo MD LAB BLOOD ORDERABLES Final Resul t [facility] [address] [place] [address], * (ABNORMAL) Complete blood count (04/22/2024 7:09 AM EST) WBC 8.2 4.8 - 10.8 K/mcL LAB HEMETOLOGY METHOD 04/22/2024 10:44 AM [facility] RBC 2.80(L) 3.80 - 4.80 M/[facility] LAB HEMETOLOGY METHOD 04/22/2024 10:44 AM [facility] Hemoglobin 7.8(L) 11.5 - 16.0 g/dL LAB HEMETOLOGY METHOD 04/22/2024 10:44 AM [facility] Hematocrit 27.7(L) 35.0 - 47.0 % LAB HEMETOLOGY METHOD 04/22/2024 10:44 AM [facility] MCV 97.5 79.0 - 98.0 FL LAB HEMETOLOGY METHOD 04/22/2024 10:44 AM [facility] MCH 27.5 27.0 - 32.0 pcg LAB HEMETOLOGY METHOD 04/22/2024 10:44 AM [facility] MCHC 28.2(L) 32.0 - 37.0 g/dL LAB HEMETOLOGY METHOD 04/22/2024 10:44 AM EST [facility] RDW 16.5(H) 11.0 - 15.0 % LAB HEMETOLOGY METHOD 04/22/2024 10:44 AM [facility] Platelets 189 130 - 400 K/mcL LAB HEMETOLOGY METHOD 04/22/2024 10:44 AM [facility] MPV 10.7 7.0 - 11.0 FL LAB HEMETOLOGY METHOD 04/22/2024 10:44 AM [facility] NRBC 0.0 <1.0 % LAB HEMETOLOGY METHOD 04/22/2024 10:44 AM [facility] NRBC Absolute 0.00 <0.10 K/mcL LAB HEMETOLOGY METHOD 04/22/2024 10:44 AM [facility] Blood Venous blood specimen / Unknown Venipuncture / Unknown 04/22/2024 7:09 AM EST 04/22/2024 9:43 AM EST us Marily Gordillo MD LAB BLOOD ORDERABLES Final Resul t [facility] [address] [place] [address], documented in this encounter Visit Diagnoses Diagnosis Chronic kidney disease, unspecified Anemia, unspecified documented in this encounter Care Teams Doctor Of Optometry Relationship Specialty Start Date End Date Marita Wetzel DO [address] [place] [address] PCP - General 01/09/23 documented as of this encounter
--- OUTSIDE RECORDS SUMMARY | 2025-01-19 13:46 | XMS_ITS | Encounter Summary ---
Author Organization [facility] Address [address] [place] [address] Care Team Providers Care Automatic Embroidery Machine Tender Name Role Phone Marita Wetzel DO Primary Care Provider +1- [phone] Encounter Details Date Type Department Care Team (Late st Contact Info) Description 04/10/2024 Lab Requisition [facility] - Main Lab 299 [facility] [place] [phone] Marily Gordillo MD [address] [place] [phone] Chronic embolism and thrombosis of unspecified vein; [...] unspecified documented in this encounter Care Teams Automatic Embroidery Machine Tender Relationship Specialty Start Date End Date Marita Wetzel DO [address] [place], [place] PCP - General 01/09/23 documented as of this encounter
--- OUTSIDE RECORDS SUMMARY | 2025-01-19 13:46 | XMS_ITS | Encounter Summary ---
Author Organization [facility] Address [address] [place] [address] Care Team Providers Care Research Manufacturing Operator Name Role Phone Marita Wetzel Primary Care Provider +1- [phone] Encounter Details Date Type Department Care Team (Late st Contact Info) Description 04/02/2024 Lab Requisition [facility] - Main Lab [address] [facility] [place] [phone] Marily Gordillo MD [address] [place] [address] Chronic embolism and thrombosis of [...] - 20.0 ng/mL 04/07/2024 4:26 PM EST [facility] Comment: Additional Information: Toxic Level [...] investigational or for research. Test performed at [facility], [address], [place] [address] Ashtyn Leigh MD, PhD - Polysomnography Technologist Blood Venous blood specimen / Unknown Venipuncture / Unknown 04/05/2024 6:56 AM EST 04/05/2024 10:25 AM EST us Marily Gordillo MD LAB BLOOD ORDERABLES Final Resul t [facility] [address] [place] [address] * (ABNORMAL) Renal function panel (04/05/2024 6:56 AM EST) Pathologist [facility] Sodium 138 133 - 145 mmol/L LAB CHEMISTRY METHOD 04/05/2024 11:52 AM EST [facility] Potassium 5.0 3.5 - 5.5 mmol/L LAB CHEMISTRY METHOD 04/05/2024 11:52 AM EST [facility] Chloride 107 96 - 110 mmol/L LAB CHEMISTRY METHOD 04/05/2024 11:52 AM EST [facility] CO2 20(L) 21 - 32 mmol/L LAB CHEMISTRY METHOD 04/05/2024 11:52 AM [facility] Anion Gap 11 3 - 11 LAB CHEMISTRY METHOD 04/05/2024 11:52 AM [facility] Glucose 104(H) 70 - 100 mg/dL LAB CHEMISTRY METHOD 04/05/2024 11:52 AM [facility] BUN 56(H) 5 - 25 mg/dL LAB CHEMISTRY METHOD 04/05/2024 11:52 AM [facility] Creatinine 4.43(H) 0.50 - 1.10 mg/dL LAB CHEMISTRY METHOD 04/05/2024 11:52 AM [facility] eGFR 11(L) >=60 mL/min/1. 73m2 LAB CHEMISTRY METHOD 04/05/2024 11:52 AM [facility] Comment:Calculation based on the Chronic Kidney Disease Epidemiology Collaboration (CKD-EPI) equation refit without adjustment for race. BUN/Creatinine Ratio 12.6 LAB CHEMISTRY METHOD 04/05/2024 11:52 AM [facility] Albumin 1.9(L) 3.2 - 5.0 g/dL LAB CHEMISTRY METHOD 04/05/2024 11:52 AM [facility] Calcium 9.0 8.5 - 10.5 mg/dL LAB CHEMISTRY METHOD 04/05/2024 11:52 AM [facility] Phosphorus 3.1 2.5 - 4.5 mg/dL LAB CHEMISTRY METHOD 04/05/2024 11:52 AM [facility] Blood Venous blood specimen / Unknown Venipuncture / Unknown 04/05/2024 6:56 AM EST 04/05/2024 10:21 AM EST us Marily Gordillo MD LAB BLOOD ORDERABLES Final Resul t [facility] [address] [place] [address], * (ABNORMAL) Complete blood count (04/05/2024 6:56 AM EST) [facility] WBC 9.2 4.8 - 10.8 K/mcL LAB HEMETOLOGY METHOD 04/05/2024 10:42 AM [facility] RBC 2.50(L) 3.80 - 4.80 M/mcL LAB HEMETOLOGY METHOD 04/05/2024 10:42 AM [facility] Hemoglobin 6.8(L) 11.5 - 16.0 g/dL LAB HEMETOLOGY METHOD 04/05/2024 10:42 AM [facility] Hematocrit 24.8(L) 35.0 - 47.0 % LAB HEMETOLOGY METHOD 04/05/2024 10:42 AM [facility] MCV 99.6(H) 79.0 - 98.0 FL LAB HEMETOLOGY METHOD 04/05/2024 10:42 AM [facility] MCH 27.3 27.0 - 32.0 pcg LAB HEMETOLOGY METHOD 04/05/2024 10:42 AM [facility] MCHC 27.4(L) 32.0 - 37.0 g/dL LAB HEMETOLOGY METHOD 04/05/2024 10:42 AM [facility] RDW 16.7(H) 11.0 - 15.0 % LAB HEMETOLOGY METHOD 04/05/2024 10:42 AM [facility] Platelets 332 130 - 400 K/mcL LAB HEMETOLOGY METHOD 04/05/2024 10:42 AM [facility] MPV 10.2 7.0 - 11.0 FL LAB HEMETOLOGY METHOD 04/05/2024 10:42 AM [facility] NRBC 0.0 <1.0 % LAB HEMETOLOGY METHOD 04/05/2024 10:42 AM [facility] NRBC Absolute 0.00 <0.10 K/mcL LAB HEMETOLOGY METHOD 04/05/2024 10:42 AM EST [facility] Blood Venous blood specimen / Unknown Venipuncture / Unknown 04/05/2024 6:56 AM EST 04/05/2024 10:26 AM EST us Marily Gordillo MD LAB BLOOD ORDERABLES Final Resul t [facility] [address] [place] [address], [place] [phone] documented in this encounter Visit Diagnoses Diagnosis Chronic embolism and thrombosis of unspecified vein Acute kidney failure, unspecified (CMS/HCC V24) Acute kidney failure, unspecified documented in this encounter Care Teams Research Manufacturing Operator Relationship Specialty Start Date End Date Marita Wetzel DO [address] [place] [address] PCP - General 01/09/23 documented as of this encounter
--- OUTSIDE RECORDS SUMMARY | 2025-01-19 13:46 | XMS_ITS | Encounter Summary ---
Author Organization [facility], Address [address] [place] [address] Phone Care Team Providers Care Body Builder Apprentice Name Role Phone Marita Wetzel DO Primary Care Provider Unava ilable Encounter Details Date Type Department Care Team (Late st Contact Info) Description 07/29/2023 Documentation Only [facility] [address] [place] [phone] Pauline Aguayo [address] [place] [phone] Social History Tobacco Use Types Packs/Day Years [...] [facility] [address] [place] [address] 03/08/2025 12:30 PM EST Scheduled Only [facility] [address] [place] [address] 07/12/2025 1:00 PM EDT Scheduled Only [facility] [address] [place] [address] documented as of this encounter Visit Diagnoses Not on filedocumented in this encounter Care Teams Body Builder Apprentice Relationship Specialty Start Date End Date Marita Wetzel DO [address] [place] [address] PCP - General Family Medicine 11/14/22 documented as of this encounter
--- OUTSIDE RECORDS SUMMARY | 2025-01-19 13:46 | XMS_ITS | Encounter Summary ---
Author Organization [facility] Address [address] [place] [address] Care Team Providers Care Tariff Compiler Name Role Phone Marita Wetzel Primary Care Provider +1- [phone] Encounter Details Date Type Department Care Team (Late st Contact Info) Description 03/30/2024 Lab Requisition [facility] - Main Lab [address] [facility] [place] [address] Catalina Burr MD [address] [place] [address] Chronic embolism and thrombosis of unspecified vein; [...] LAB CHEMISTRY METHOD 03/31/2024 12:06 PM EST [facility] Blood Venous blood specimen / Unknown Venipuncture / Unknown 03/31/2024 9:23 AM EST 03/31/2024 11:25 AM EST Catalina Burr MD LAB BLOOD ORDERABLES Final Resul t Performing Organization Address [facility]/ZIP Co de Phone Number [facility] [address] [place] [address], [place] [phone] * (ABNORMAL) Ferritin (03/31/2024 9:23 AM EST) Ferritin 6,203(H) 8 - 252 ng/mL LAB CHEMISTRY METHOD 03/31/2024 12:10 PM EST [facility] Blood Venous blood specimen / Unknown Venipuncture / Unknown 03/31/2024 9:23 AM EST 03/31/2024 11:25 AM EST Catalina Burr MD LAB BLOOD ORDERABLES Final Resul t Performing Organization Address [facility]/ZIP Co de Phone Number [facility] [address] [place] [address], [place] [phone] documented in this encounter Visit Diagnoses Diagnosis Chronic embolism and thrombosis of unspecified vein Acute kidney failure, unspecified (CMS/HCC V24) Acute kidney failure, unspecified documented in this encounter Care Teams Tariff Compiler Relationship Specialty Start Date End Date Marita Wetzel DO [address] [place] [address] PCP - General 01/09/23 documented as of this encounter
--- OUTSIDE RECORDS SUMMARY | 2025-01-19 13:46 | XMS_ITS | Encounter Summary ---
Author Organization [facility] Address [address] [place] [address] Care Team Providers Care Rn Urgent Care Name Role Phone Mary JaneMarita yousif Primary Care Provider +1- [phone] Encounter Details Date Type Department Care Team (Late st Contact Info) Description 02/24/2024 Lab Requisition [facility] - Main Lab 299 [facility] [place] [address] Norbert Lopez MD [address] [facility] [address] [facility] [address] Encounter for other specified prophylactic [...] Travel phlebotomy fee (02/24/2024 12:45 PM EST) [facility] TRAVEL PHLEBOTOMY FEE Completed 02/24/2024 2:01 PM EST [facility] Blood Venous blood specimen / Unknown Venipuncture / Unknown 02/24/2024 12:45 PM EST 02/24/2024 1:29 PM EST Norbert Lopez MD LAB BLOOD ORDERABLES Final Resul t Performing Organization Address [facility] Co de Phone Number [facility] [address] [place] [address], [place] [phone] * (ABNORMAL) Heparin and low molecular weight anti Xa level (02/24/2024 12:45 PM EST) [facility] Heparin Anti-Xa 0.28(L) 0.30 - 0.70 I Unit/mL LAB COAGULATION METHOD 02/24/2024 2:02 PM EST [facility] Blood Venous blood specimen / Unknown Venipuncture / Unknown 02/24/2024 12:45 PM EST 02/24/2024 1:29 PM EST Narrative [facility] - 02/24/2024 2:02 PM EST Therapeutic range listed is for Unfractionated Heparin. LMW Heparin therapeutic range: 0.50-1.20 IU/mL Norbert Lopez MD LAB BLOOD ORDERABLES Final Resul t Performing Organization Address [facility]/ZIP Co de Phone Number [facility] [address] [place] [address], [place] [phone] * (ABNORMAL) Basic metabolic panel (02/24/2024 12:45 PM EST) [facility] Sodium 137 133 - 145 mmol/L LAB CHEMISTRY METHOD 02/24/2024 3:10 PM [facility] Potassium 3.7 3.5 [...] [facility] [address] [place] [address], * (ABNORMAL) Complete blood count (02/24/2024 12:45 PM EST) [facility] WBC 11.3(H) 4.8 - 10.8 K/mcL [...] LAB HEMETOLOGY METHOD 02/24/2024 1:38 PM EST [facility] NRBC Absolute 0.00 <0.10 K/mcL LAB HEMETOLOGY METHOD 02/24/2024 1:38 PM EST [facility] Blood Venous blood specimen / Unknown Venipuncture / Unknown 02/24/2024 12:45 PM EST 02/24/2024 1:29 PM EST us Norbert Lopez MD LAB BLOOD ORDERABLES Final Resul t [facility] [address] [place] [address], documented in this encounter Visit Diagnoses Diagnosis Encounter for other specified prophylactic measures Acute kidney failure, unspecified (CMS/HCC V24) Acute kidney failure, unspecified documented in this encounter Care Teams Rn Urgent Care Relationship Specialty Start Date End Date Marita Wetzel DO [address] [place] [address] PCP - General 01/09/23 documented as of this encounter
--- OUTSIDE RECORDS SUMMARY | 2025-01-19 13:46 | XMS_ITS | Encounter Summary ---
Author Organization [facility] Address [address] [place] [address] Care Team Providers Care Tongue Stitcher Name Role Phone Marita Wetzel DO Primary Care Provider +1- [phone] Encounter Details Date Type Department Care Team (Late st Contact Info) Description 04/28/[address] [facility] - Main Lab 299 [facility] [place] [place] [phone] Marily Gordillo MD [address] [place] [address] Chronic kidney disease, unspecified; Anemia, [...] unspecified documented in this encounter Care Teams Tongue Stitcher Relationship Specialty Start Date End Date Marita Wetzel DO [address] [place] [address] PCP - General 01/09/23 documented as of this encounter
--- OUTSIDE RECORDS SUMMARY | 2025-01-19 13:46 | XMS_ITS | Encounter Summary ---
Author Organization [facility] Address [address] [place] [address] Care Team Providers Care Water Taxi Driver Name Role Phone Marita Wetzel DO Primary Care Provider +1- [phone] Encounter Details Date Type Department Care Team (Late st Contact Info) Description 04/28/[address] [facility] - Main Lab [address] [facility] [employer] [place] [phone] Marily Gordillo MD [address] [place] [address] Chronic kidney disease, unspecified; Anemia, [...] documented in this encounter Care Teams Water Taxi Driver Relationship Specialty Start Date End Date Marita Wetzel DO [address] [place] [address] PCP - General 01/09/23 documented as of this encounter
--- OUTSIDE RECORDS SUMMARY | 2025-01-19 13:46 | XMS_ITS | Encounter Summary ---
Author Organization [facility] Address [address] [place] [address] Care Team Providers Care Tractor Sweeper Operator Name Role Phone Marita Wetzel Primary Care Provider [phone] Encounter Details Date Type Department Care Team (Late st Contact Info) Description 03/01/2024 Lab Requisition [facility] - Main Lab [address] [facility] [place] [address] Catalina Burr MD [address] [place], [place] [phone] End stage renal disease (CMS/HCC V24, CMS/HCC [...] (ABNORMAL) Ferritin (03/01/2024 6:56 AM EST) Pathologist [facility] Ferritin 2,736(H) 8 - 252 ng/mL LAB CHEMISTRY METHOD 03/01/2024 11:27 AM EST [facility] Blood Venous blood specimen / Unknown Venipuncture / Unknown 03/01/2024 6:56 AM EST 03/01/2024 9:07 AM EST Catalina Burr MD LAB BLOOD ORDERABLES Final Resul t Performing Organization Address City/[facility]/ZIP Co de Phone Number [facility] [address] [place] [address], [place] [phone] * (ABNORMAL) Iron (03/01/2024 6:56 AM EST) [facility] Iron 29(L) 40 - 150 mcg/dL LAB CHEMISTRY METHOD 03/01/2024 11:22 AM EST [facility] Blood Venous blood specimen / Unknown Venipuncture / Unknown 03/01/2024 6:56 AM EST 03/01/2024 9:07 AM EST us Catalina Burr MD LAB BLOOD ORDERABLES Final Resul t [facility] [address] [place] [address], [place] [phone] * Tacrolimus level (03/01/2024 6:56 AM EST) [facility] Tacrolimus Level 5.2 5.0 - 20.0 ng/mL 03/04/2024 12:28 PM EST [facility] Comment: Additional Information: [...] the performance characteristics determined by [facility]. This confirmation testing has not been cleared or approved by the FDA. The laboratory is regulated under CLIA as qualified to perform high-complexity testing. This test is used for patient testing purposes. It should not be regarded as investigational or for research. Test performed at [facility], [address] , [place] [address] Ashtyn Leigh MD, PhD - Cylinder Press Operator Helper Blood Venous blood specimen / Unknown Venipuncture / Unknown 03/01/2024 6:56 AM EST 03/01/2024 9:07 AM EST us Catalina Burr MD LAB BLOOD ORDERABLES Final Resul t [facility] [address] [place] [address] * (ABNORMAL) Renal function panel (03/01/2024 6:56 AM EST) Sodium 140 133 - 145 mmol/L LAB CHEMISTRY METHOD 03/01/2024 11:[address] [facility] Potassium 3.4(L) 3.5 - 5.5 mmol/L LAB CHEMISTRY METHOD 03/01/2024 11:[address] [facility] Chloride 107 96 - 110 mmol/L LAB CHEMISTRY METHOD 03/01/2024 11:[address] [facility] CO2 24 21 - 32 mmol/L LAB CHEMISTRY METHOD 03/01/2024 11:[address] [facility] Anion Gap 9 3 - 11 LAB CHEMISTRY METHOD 03/01/2024 11:[address] [facility] Glucose 107(H) 70 - 100 mg/dL LAB CHEMISTRY METHOD 03/01/2024 11:[address] [facility] BUN 26(H) 5 - 25 mg/dL LAB CHEMISTRY METHOD 03/01/2024 11:[address] [facility] Creatinine 2.88(H) 0.50 - 1.10 mg/dL LAB CHEMISTRY METHOD 03/01/2024 11:[address] [facility] eGFR 18(L) >=60 mL/min/1. 73m2 LAB CHEMISTRY METHOD 03/01/2024 11:[address] [facility] Comment:Calculation based on the Chronic Kidney Disease Epidemiology Collaboration (CKD-EPI) equation refit without adjustment for race. BUN/Creatinine Ratio 9.0 LAB CHEMISTRY METHOD 03/01/2024 11:[address] [facility] Albumin 2.3(L) 3.2 - 5.0 g/dL LAB CHEMISTRY METHOD 03/01/2024 11:[address] [facility] Calcium 8.9 8.5 - 10.5 mg/dL LAB CHEMISTRY METHOD 03/01/2024 11:[address] [facility] Phosphorus 1.9(L) 2.5 - 4.5 mg/dL LAB CHEMISTRY METHOD 03/01/2024 11:[address] [facility] Blood Venous blood specimen / Unknown Venipuncture / Unknown 03/01/2024 6:56 AM EST 03/01/2024 9:07 AM EST us Catalina Burr MD LAB BLOOD ORDERABLES Final Resul t [facility] [address] [place] [address], * (ABNORMAL) Complete blood count (03/01/2024 6:56 AM EST) [facility] WBC 10.2 4.8 - 10.8 K/mcL LAB HEMETOLOGY METHOD 03/01/2024 10:[address] [facility] RBC 2.70(L) 3.80 - 4.80 M/mcL LAB HEMETOLOGY METHOD 03/01/2024 10:[address] [facility] Hemoglobin 7.5(L) 11.5 - 16.0 g/dL LAB HEMETOLOGY METHOD 03/01/2024 10:[address] [facility] Hematocrit 26.1(L) 35.0 - 47.0 % LAB HEMETOLOGY METHOD 03/01/2024 10:[address] [facility] MCV 97.8 79.0 - 98.0 FL LAB HEMETOLOGY METHOD 03/01/2024 10:[address] [facility] MCH 28.1 27.0 - 32.0 pcg LAB HEMETOLOGY METHOD 03/01/2024 10:[address] [facility] MCHC 28.7(L) 32.0 - 37.0 g/dL LAB HEMETOLOGY METHOD 03/01/2024 10:[address] [facility] RDW 16.7(H) 11.0 - 15.0 % LAB HEMETOLOGY METHOD 03/01/2024 10:[address] [facility] Platelets 235 130 - 400 K/mcL LAB HEMETOLOGY METHOD 03/01/2024 10:[address] [facility] MPV 10.8 7.0 - 11.0 FL LAB HEMETOLOGY METHOD 03/01/2024 10:[address] [facility] NRBC 0.0 <1.0 % LAB HEMETOLOGY METHOD 03/01/2024 10:[address] [facility] NRBC Absolute 0.00 <0.10 K/mcL LAB HEMETOLOGY METHOD 03/01/2024 10:46 AM EST [facility] Blood Venous blood specimen / Unknown Venipuncture / Unknown 03/01/2024 6:56 AM EST 03/01/2024 9:07 AM EST us Catalina Burr MD LAB BLOOD ORDERABLES Final Resul t [facility] [address] [place] [address], documented in this encounter Visit Diagnoses Diagnosis End stage renal disease ([facility] V24, [facility] V28) End stage renal disease Type 2 diabetes mellitus without complications ([facility] V24, [facility] V28) documented in this encounter Care Teams Tractor Sweeper Operator Relationship Specialty Start Date End Date Marita Wetzel DO [address] [place] [address] PCP - General 01/09/23 documented as of this encounter
--- OUTSIDE RECORDS SUMMARY | 2025-01-19 13:46 | XMS_ITS | Encounter Summary ---
Author Organization [facility] [place], Address [address] [place] [address] Phone Care Team Providers Care Check Grader Name Role Phone Marita Wetzel DO Primary Care Provider Unava ilable Encounter Details Date Type Department Care Team (Late st Contact Info) Description 06/12/2023 Documentation Only [facility] [address] [place] [address] [place], [place], [place] [address] [place] [phone] Social History Tobacco Use Types Packs/Day Years [...] [facility] [address] [place] [address] 03/08/2025 12:30 PM EST Scheduled Only [facility] [address] [place] [address] 07/12/2025 1:00 PM EDT Scheduled Only [facility] [address] [place] [address] documented as of this encounter Visit Diagnoses Not on filedocumented in this encounter Care Teams Check Grader Relationship Specialty Start Date End Date Marita Wetzel DO [address] [place] [address] PCP - General Family Medicine 11/14/22 documented as of this encounter
[2025-01-19 13:49] LABS: MANUAL DIFF FLAG NO
[2025-01-19 13:51] LABS: Hematocrit 33.6 % (37.0-47.0); Hemoglobin 10.3 g/dl (12.0-16.0); Imm Gran Abs Auto 0.04 X10*3/uL (0.00-0.03); Imm Gran Pct Auto 0.6 % (0.0-0.4); Lymphocytes Absolute Auto 0.6 X10*3/uL (1.2-4.9); Mean Corpuscular HGB Conc 30.7 g/dl (31.0-35.0); Mean Corpuscular Hemoglobin 27.0 pg (27.0-33.0); Mean Corpuscular Volume 88.0 fL (80.0-98.0); NRBC Abs Auto 0.000 X10*3/uL (0.0-0.012); NRBC Pct Auto 0.0 /100WBC (0.0-0.2); Platelet Count 169 X10*3/uL (160-400); Red Blood Count 3.82 X10*6/uL (4.20-5.50); White Blood Count 7.1 X10*3/uL (4.8-10.8)
[2025-01-19 14:06] LABS: Alanine Aminotransferase < 6 U/L (0-31); Albumin Level 3.4 g/dL (3.5-5.0); Alkaline Phosphatase 134 U/L (39-117); Anion Gap 16 (12-20); Aspartate Amino Transferase 15 U/L (5-31); Blood Urea Nitrogen 34 mg/dL (9-16); Calcium 8.9 mg/dL (8.4-10.2); Carbon Dioxide 25 mmol/L (22-29); Chloride 101 mmol/L (96-108); Creatinine Clr Calc Pharmacy 8.8; Estimated Glomerular Filt Rate 8; Lipase 6 U/L (8-78); Potassium 4.6 mmol/L (3.3-5.1); Sodium 137 mmol/L (135-145); Total Protein 8.2 g/dL (6.5-8.0)
[2025-01-19 15:03] VITALS: BP 137/78; PULSE 74; RESP 16; TEMP 36.9; O2SAT 100
== END 2025-01-19 15:18 | disposition home or self-care (01) ==
PROVIDERS: Emergency Provider Emergency Medicine; PCP Family Medicine
DX: R11.0 Nausea (principal); N18.6 End stage renal disease; E11.22 Type 2 diabetes mellitus with diabetic chronic kidney disease; I12.0 Hypertensive chronic kidney disease with stage 5 chronic kidney disease or end stage renal disease; Z99.2 Dependence on renal dialysis; R19.7 Diarrhea, unspecified; Z03.818 Encounter for observation for suspected exposure to other biological agents ruled out
CPT/HCPCS: 36415; 80053; 83690; 85025; 87502; 87635; 93005; 99284; 99285

== ENCOUNTER → 2025-01-19 12:09 | Outpatient (BNV) | payer MEDICARE, OTHER, SELFPAY | PROVIDERS: Emergency Provider Emergency Medicine; PCP Family Medicine; Visit Provider Internal Medicine | DX: R94.31 Abnormal electrocardiogram [ECG] [EKG] (principal); R53.1 Weakness | CPT/HCPCS: 93010 ==

== ENCOUNTER 2025-01-27 15:52 | Outpatient (REF) | payer MEDICARE, OTHER, SELFPAY ==
[2025-01-27 18:34] LABS: Blood Urea Nitrogen 21 mg/dL (9-16); Estimated Glomerular Filt Rate 10
== END 2025-01-27 15:53 | disposition home or self-care (01) ==
LOC: HO.LAB 15:52
PROVIDERS: PCP Family Medicine; Visit Provider Internal Medicine
DX: A43.9 Nocardiosis, unspecified (principal)
CPT/HCPCS: 36415; 82565; 84520

== ENCOUNTER 2025-02-03 12:04 | Outpatient (REF) | payer MEDICARE, OTHER, SELFPAY ==
--- OUTSIDE RECORDS SUMMARY | 2024-07-02 06:30 | XMS_ITS ---
Author Organization [facility] Address [address] [place] [address] Care Team Providers Care Strand Buncher Fine Wire Name Role Phone Jah Miryam Unavailable [phone] Encounters Encounter Location Date Provider Diagnosis [address] [address] 07/02/2024 Miryam Tyson Plan Of Treatment No Information Progress Notes * Farhan BEARDaDOB:1960 (64 yo F)Acc No.[id number]:07/02/2024 Progress Notes Patient: Alix SHEARER Provider: Esvin Tyson DPM :1960 A ge:64 Y S ex:Female Date:07/02/2024 Address:[address] [place], [place] [id number] Subjective: * Chief Complaints: * * Medical [...] 0 07/02/2024 Generated for Michael santos/Chloe/Aurelia on: 03:16 PM EDT
--- OUTSIDE RECORDS SUMMARY | 2025-02-01 09:00 | XMS_ITS | Encounter Summary ---
Author Organization [employer] Address [address] [place] [address] [address] [place] [address] Care Team Providers Care Occasional Babysitter Name Role Phone Marita Wetzel DO Primary Care Provider [phone] Reason for Referral * Imaging (STAT) - Authorized Specialty Diagnoses / Procedures Referred By Contac t Referred To Contact Radiology Diagnoses Pancreatic mass Procedures MR Abdomen w/ and w/o Contrast Marita Wetzel DO [address] [place] [address] Phone: tel: fax: [address] Phone: tel: fax: Referral ID Status Reason Start Date Expiration Date V isits Requested Visits Authorized [id number] Authorized 02/01/2025 02/01/2026 1 1 Reason for Visit * Reason Comments Follow-up Encounter Details Date Type Department Care Team (Late st Contact Info) Description 02/01/2025 9:00 AM EDT Office Visit [facility] [address] [place], [place] [phone] Marita Wetzel DO [address] [place] [address] Type 2 diabetes mellitus with hyperglycemia, with long-term current use of insulin (HCC) (Primary Dx); Essential hypertension; Other hyperlipidemia; Encounter for vaccination; Encounter for immunization; Pancreatic mass Social History Tobacco Use Types Packs/Day Years Used Date Smoking Tobacco: Never Passive Smoke Exposure: Never Smokeless Tobacco: Never Alcohol Use Standard Drinks/Week Comments Never 0 (1 standard drink = 0.6 oz pur e alcohol) Depression Answer Date Recorded Patient Health Questionnaire-9 Score 0 10/08/2022 Housing Stability Answer Date Recorded What is your housing situation today? I have naye garcia 01/25/[address] you li ve. Do you have problems with any of the following? None of the above 01/25/2025 Food Insecurity Answer Date Recorded Within the past 12 months, y ou worried that your food would run out before you got money to buy more: Never True 01/25/2025 Within the past 12 months,th e food you bought just didn't last and you didn't have enough money to get more: Never True 10/2024 Transportation Answer Date Recorded In the past 12 months, has l ack of transportation kept you from medical appts, meetings, work or from getting things needed for daily living? No 01/25/2025 Utilities Answer Date Recorded In the past 12 months, has t he electric, gas, oil or water company threatened to shut off services in your home? No 01/25/2025 Depression Answer Date Recorded Patient Health Questionnaire-2 Score 0 10/08/2022 Internet Access Answer Date Recorded Internet Access Q1 Yes 01/25/2025 Internet Access Q2 Not on file 01/25/2025 Comments No Sex and Gender Information Value Date Recorded Sex Assigned at Female 02/18/2022 10:21 AM EDT Legal Sex Female 10:21 AM EDT Gender Identity Female 02/18/2022 10:21 AM EDT Sexual Orientation Straight 02/18/2022 10 :21 AM EDT documented as of this encounter Last Filed Vital Signs Vital Sign Reading Time Taken Comments Blood Pressure 126/60 02/01/2025 9:25 AM EDT Pulse 64 02/01/2025 9:25 AM EDT Temperature 36.6 C (97.9 F) 02/01/2025 9:25 AM EDT Respiratory Rate 19 02/01/2025 9:25 AM EDT Oxygen Saturation 99% 02/01/2025 9:25 AM EDT Inhaled Oxygen Concentration - - Weight 68 kg (150 lb) 02/01/2025 9:25 AM EDT Height 170.2 cm (5' 7 ) 02/01/2025 9:25 AM EDT Body Mass Index 23.49 02/01/2025 9:25 AM EDT documented in this encounter Plan of Treatment Upcoming Encounters Date Type Department Care Team (Late st Contact Info) Description 02/17/2025 10:00 AM EDT Medication Management [facility] [address] [place] [address] Carmen Becker PharmD [address] [place] [address] Scheduled Orders Name Type Priority Associated Diagnoses Orde r Schedule MR Abdomen w/ and w/o Contrast Imaging STAT Pancreatic mass Expected: 02/01/2025, Expires: 02/01/2026 documented as of this encounter Goals Goal Patient Goal Type Associated Problems Recent Progress Patient-Stated? Author Hemoglobin A1c < 7 Result Component 6.4( 9:29 AM EDT) No Carmen Becker PharmD Record your blood sugar as directed Result Component No Carmen Becker PharmD Note: Use CGM, ensuring sensor is scanned at least once every 8 hours to capture 24H data. Check BG manually, as directed. documented as of this encounter Procedures Procedure Name Priority Date/Time Associated Diagnosis Comments POCT GLYCATED HEMOGLOBIN, TOTAL Routine 02/01/2025 9:29 AM EDT Type 2 diabetes mellitus with hyperglycemia, with long-term current use of insulin (HCC) POCT GLUCOSE Routine 02/01/2025 9:28 AM EDT Type 2 diabetes mellitus with hyperglycemia, with long-term current use of insulin (HCC) documented in this encounter Results * (ABNORMAL) POCT Hgb A1c (02/01/2025 9:29 AM EDT) Hemoglobin A1C 6.4(A) 4.0 - 5.7 % QC Media Lot # [id number] Lot# Expiration Date Blood 02/01/2025 9:29 AM EDT Marita Wetzel DO POINT OF CARE TEST ENTER/HUMBERTO T ORDERABLES Final Result * POCT Glucose (02/01/2025 9:28 AM EDT) Glucose Blood, POC 164 60 - 200 mg/dL QC Media Lot # [id number] Lot# Expiration Date Blood Capillary blood specimen / Unknown 02/01/2025 9:28 AM EDT Marita Wetzel DO POINT OF CARE TEST ENTER/HUMBERTO T ORDERABLES Final Result documented in this encounter Visit Diagnoses Diagnosis Type 2 diabetes mellitus with hyperglycemia, with long-term current use of insulin (HCC)- Primary Essential hypertension Unspecified essential hypertension Other hyperlipidemia Encounter for vaccination Encounter for immunization Pancreatic mass Unspecified disease of pancreas documented in this encounter Additional Health Concerns Assessment Noted Time PHQ-9 Depression Total Score: 0 10/09/19 23 9:31 AM EDT documented as of this encounter Care Teams Occasional Babysitter Relationship Specialty Start Date End Date Marita Wetzel DO [address] [place] [address] PCP - General Family Medicine 04/21/18 [facility] 05/22/24 documented as of this encounter
--- NOTE | ~2025-02-03 | MR_ITS ---
EXAMINATION: MR ABDOMEN WITHOUT AND WITH INTRAVENOUS CONTRAST CLINICAL INFORMATION: PANCREATIC MASS PROTOCOL f/u pancreatic mass COMPARISON: Abdomen/pelvis CT on November 27, 2024 describes 2.5 cm cystic lesion in the head of the pancreas with question of upstream pancreatic ductal dilatation and parenchymal atrophy. Abdomen MRI on January 27, 2013. TECHNIQUE: MR abdomen was performed without and with use of 6.5 cc intravenous Gadavist gadolinium contrast. Postcontrast images are performed in multiphase dynamic sequences. Imaging was performed in 3 planes. MRCP sequences were also obtained. FINDINGS: LOWER CHEST:: Mild atelectasis in the posterior right lung base associated with local pleural thickening, mildly improved from previous CT study. Cardiomegaly. LIVER: Hepatomegaly measuring 21.4 cm. Diffuse decreased T2 signal and drop in signal on the in-phase sequence compared to the [id number] sequence suggests iron overload. No focal lesion. GALLBLADDER AND BILIARY TREE: Nondistended gallbladder containing small gallstones. No intrahepatic or extrahepatic biliary ductal dilatation. PANCREAS: Multiple cystic lesions along the atrophic pancreas, the largest measuring 1.6 cm at the level of the head (3:24/48) and the largest in the body measuring 2.0 cm (5:28/46), some of them probably communicating with the pancreatic duct. No definite solid components identified within the cystic lesions on the postcontrast images. Mildly prominent pancreatic duct. SPLEEN: Mild splenomegaly measuring 12.4 cm. Diffuse decreased T2 signal suggesting iron overload. No focal lesions. ADRENAL GLANDS: No nodules. KIDNEYS AND URETERS: Mild bilateral cortical thinning. Multiple and bilateral T2 hyperintense renal cysts. No hydronephrosis. 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 GASTROINTESTINAL TRACT: No bowel distention. PERITONEUM/RETROPERITONEUM: Moderate amount of free fluid. Status post anterior abdominal wall hernia repair with mesh in place. ABDOMINAL WALL: Anasarca. LYMPH NODES: No lymphadenopathy. VASCULAR: No abdominal aortic aneurysm. Severe vascular calcifications are better appreciated on the previous CT study. OSSEOUS STRUCTURES: Decreased T2 signal of the bone marrow. MR/MR abdomen wo/w con IMPRESSION: 1. Multiple cystic lesions throughout the atrophic pancreas, some of them probably communicating with the pancreatic duct. 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 Sequela from chronic pancreatitis could also be considered in the differential. 2. Signal abnormality suggestive of iron overload in the liver, spleen and bone marrow. 3. Hepatomegaly. Mild splenomegaly. 4. Moderate ascites. 5. Mildly improved right lung base atelectasis and right pleural thickening. 6. Cholelithiasis. Electronically signed by: Marylou Espinoza MD 02/03/2025 04:16 PM EDT
--- OUTSIDE RECORDS SUMMARY | 2025-02-03 15:16 | XMS_ITS | Encounter Summary ---
Author Organization [employer] Address [address] [facility] [facility] 7t [place] [address] Care Team Providers Care Learning Support Resource Room Teacher Name Role Phone Damari Marita Primary Care Provider + [phone] Reason for Visit * Reason Comments Med Change Request Encounter Details Date Type Department Care Team ([facility] st Contact Info) Description 12/08/2024 Refill [facility] [address] [place] [address] Cherry Landa MD [address] [place] [address] Type 2 diabetes mellitus with stage 3b chronic kidney disease, with long-term current use of insulin ([facility]) Social History Tobacco Use Types Packs/Day [...] Description 02/17/2025 10:00 AM EDT Medication Management [facility] [address] [place], [place] [phone] Carmen Becker PharmD [address] [place], [place] [phone] documented as of this encounter Goals Goal [...] as of this encounter Care Teams Learning Support Resource Room Teacher Relationship Specialty Start Date End Date Marita Wetzel DO [address] [place], [place] [phone] PCP - General Family Medicine 04/21/18 [facility] 05/22/24 documented as of this encounter
--- OUTSIDE RECORDS SUMMARY | 2025-02-03 15:16 | XMS_ITS | Encounter Summary ---
Author Organization [employer] Address [address] 7t [place] [address] Care Team Providers Care Fabric Cutter Name Role Phone Damari Marita Primary Care Provider + [phone] Encounter Details Date Type Department Care Team ([facility] st Contact Info) Description 12/08/2024 Orders Only [facility] [address] [place] [address] Cherry Landa MD [address] [place] [address] Social History Tobacco Use Types Packs/Day Years [...] Description 02/17/2025 10:00 AM EDT Medication Management [facility] [address] [place], [place] [phone] Carmen Becker PharmD [address] [place] [address] documented as of this encounter Goals Goal Patient Goal Type Associated Problems Recent Progress Patient-Stated? Author Hemoglobin A1c < 7 Result Component 6.4( 9:29 AM EDT) No Carmen Becker, PharmD Record [...] documented as of this encounter Care Teams Fabric Cutter Relationship Specialty Start Date End Date Marita Wetzel DO [address] [place] [address] PCP - General Family Medicine 04/21/18 [facility] 05/22/24 documented as of this encounter
--- OUTSIDE RECORDS SUMMARY | 2025-02-03 15:16 | XMS_ITS | Clinical Summary ---
Author Organization [facility] Address [address] [place] [address] Phone Care Team Providers Care Clinical Transformation Specialist Name Role Phone Bernardo Doty MD Unavailable Marita Wetzel DO Primary Care Provider [phone] Allergies Active Allergy Reactions Criticality Noted Date [...] mg by mouth daily. 08/26/2021 Active cloNIDine ([id number] ) 0.2 mg/[address] 1 patch [...] EST) SODIUM 135 133 - 146 mmol/L [facility] POTASSIUM 5.9(H) 3.3 - 5.1 mmol/L [facility] CHLORIDE 96 96 - 108 mmol/L [facility] CO2 27 21 - 35 mmol/L [facility] BUN 45(H) 6 - 19 mg/dL [facility] CREATININE 3.40(H) 0.5 - 1.5 mg/dL [facility] GLUCOSE 186(H) 70 - 99 mg/dL [facility] ALBUMIN 2.6(L) 3.9 - 4.8 g/dL [facility] TOTAL PROTEIN 6.2(L) 6.5 - 8.0 g/dL [facility] CALCIUM 9.0 8.4 - 10.3 mg/dL [facility] ALKALINE PHOSPHATASE 74 39 - 117 U/L [facility] TOTAL BILIRUBIN <0.2 0.0 - 1.2 mg/dL [facility] AST 9 0 - 37 U/L [facility] ALT 7 0 - 40 U/L [facility] GLOBULIN 3.6 1 - 4.8 g/dL [facility] EGFR 15(L) >59 mL/min/1.7 3m2 [facility] Comment:Estimated glomerular filtration rate calculated using the CKD-EPI refit equation. ANION GAP 18 10 - 20 mmol/L [facility] Blood 05/03/2024 3:27 PM EST 05/03/2024 8:39 PM EST us Twila CRUZ LAB BLOOD ORDERABLES Final Resu lt [address] [address] * Hepatitis C antibody, qualitative (11/26/2021 4:32 PM EDT) HCV Nonreactive Nonreactive [facility] Comment: 11/26/2021 4:32 PM EDT 11/26/2021 5:00 PM EDT us Manny Addison MD, PhD LAB BLOOD ORDERABLES Final Result [address] [address] * (ABNORMAL) Hemoglobin A1c (11/26/2021 4:32 PM EDT) HEMOGLOBIN A1C 7.8(H) 4.2 - 5.6 % [facility] Comment: HbA1c levels 5.7-6.4% represent [...] BLOOD ORDERABLES Final Result Performing Organization Address [facility] de Phone Number [address] [address] * (ABNORMAL) Lipid panel (11/26/2021 4:32 PM EDT) CHOLESTEROL 157 <200 mg/dL [facility] TRIGLYCERIDES 214(H) 35 - 150 mg/dL [facility] HDL 26(L) 40 - 80 mg/dL [facility] CALCULATED LDL 88 50 - 129 mg/dL [facility] VLDL 43(H) <31 mg/dL [facility] CARDIAC RISK RATIO 6.0(H) 0.0 - 4.0 [facility] 11/26/2021 4:32 PM EDT 11/26/2021 5:00 PM EDT Manny Addison MD, PhD LAB BLOOD ORDERABLES Final Result Performing Organization Address [facility] Co de Phone Number [address] [place] [address] from Last 3 Months or Most Recently Relevant to Health Maintenance Insurance MEDICARE PART A & B [employer] MEDICARE SUPPLEMENT [facility] Address: [address] [address] MEDICARE PART A & B [employer] MEDICARE SUPPLEMENT [facility] Address: [address] [address] MEDICARE PART A & B [facility] MEDICARE SUPPLEMENT [facility] Address: [address] [address] MEDICARE PART A & B [employer] MEDICARE SUPPLEMENT MEDICARE PART A & B [employer] MEDICARE SUPPLEMENT [facility] Address: [address] [address] MEDICARE PART A & B [employer] MEDICARE SUPPLEMENT MEDICARE PART A & B Care Teams Clinical Transformation Specialist Relationship Specialty Start Date End Date DamariMarita [address] [place] [address] PCP - General Family Medicine 03/28/22 Bernardo Doty MD [address] [address] Nephrology 11/13/21 Additional Source Comments The information contained in this document represents components of the legal health record. It is not the complete legal health record.[facility]
--- OUTSIDE RECORDS SUMMARY | 2025-02-03 15:17 | XMS_ITS | Encounter Summary ---
Author Organization [employer] Address [address] [facility] [address] 7t [place] [address] Care Team Providers Care Survey Chief Name Role Phone Marita Wetzel DO Primary Care Provider Carmen Becker PharmD Unavailable Encounter Details Date Type Department Care Team ([facility] Contact Info) Description 10/14/2022 Abstract [facility] [address] [place] [address] Marita Wetzle DO [address] [place] [address] Social History Tobacco Use Types Packs/Day Years [...] Upcoming Encounters Date Type Department Care Team ([facility] Contact Info) Description 02/17/2025 10:00 AM EDT Medication Management [facility] [address] [place] [address] Carmen Becker PharmD [address] [place] [address] documented as of this encounter Visit Diagnoses Not on filedocumented in this encounter Additional Health Concerns Assessment Noted Time PHQ-9 Depression Total Score: 0 10/09/19 23 9:31 AM EDT documented as of this encounter Care Teams Survey Chief Relationship Specialty Start Date End Date Marita Wetzel DO [address] [place], [place] [phone] PCP - General Family Medicine 04/21/18 Carmen Becker PharmD [address] [place] [address] Pharmacist Internal Medicine 07/21/23 01/21/24 [facility] 05/22/24 documented as of this encounter
--- OUTSIDE RECORDS SUMMARY | 2025-02-03 15:17 | XMS_ITS | Patient Health Record ---
Author Organization [facility] Address [address] [place] [address] Care Team Providers Care Concrete Wall Grinder Operator Name Role Phone FiorellasylwiaMiryam Unavailable [phone] Reason For Referral No Information Encounters Encounter Location Date Provider Diagnosis [facility] [address] [place] [address] 04/22/2024 Miryam Tyson [facility] [address] [place] [address] 06/17/2024 Miryam Tyson Plan Of Treatment No Information Insurance Providers Payer Name Payer Address Payer Phone Subscriber Number Group Number Insured Name Patient Relationship to Insured Coverage Start Date Coverage End Date Medicare National [employer] [address] [place] [address] [phone] [id number] Alix Sharp Self - patient is the insured for Life [address] [place] [id number] Alix Sharp Self - patient is the insured
--- OUTSIDE RECORDS SUMMARY | 2025-02-03 15:17 | XMS_ITS | Encounter Summary ---
Author Organization [employer] Address [address] [facility] 7[address] [place] [address] Care Team Providers Care Senior Catering Sales Manager Name Role Phone Marita Wetzel DO Primary Care Provider [phone] Carmen Becker PharmD Unavailable [phone] Encounter Details Date Type Department Care Team ([facility] st Contact Info) Description 04/29/2023 Telephone [facility] MEDICINE [address] [place] [address] Marita Wetzel DO [address] [place], [place] [phone] Social History Tobacco Use Types Packs/Day Years [...] Description 02/17/2025 10:00 AM EDT Medication Management [facility] MEDICINE [address] [place] [address] Carmen Becker PharmD [address] [place] [address] documented as of this encounter Visit Diagnoses Not on filedocumented in this encounter Additional Health Concerns Assessment Noted Time PHQ-9 Depression Total Score: 0 10/09/19 23 9:31 AM EDT documented as of this encounter Care Teams Senior Catering Sales Manager Relationship Specialty Start Date End Date Marita Wetzel DO [address] [place] [id number] PCP - General Family Medicine 04/21/18 Carmen Becker PharmD [address] [place] [id number] Pharmacist Internal Medicine 07/21/23 01/21/24 [facility] 05/22/24 documented as of this encounter
--- OUTSIDE RECORDS SUMMARY | 2025-02-03 15:17 | XMS_ITS | Encounter Summary ---
Author Organization [employer] Address [address] [facility] [address] [place] [address] Care Team Providers Care Quill Skinner Name Role Phone Marita Wetzel DO Primary Care Provider + [phone] Reason for Visit * Reason Onset Date Comments Med Refill 06/25/2024 Encounter Details Date Type Department Care Team (Late st Contact Info) Description 06/25/2024 Telephone [facility] MEDICINE [address] [place] [address] Marita Wetzel DO [address] [place], [place] [phone] Med Refill Social History Tobacco Use Types [...] 1 g tablet To be sent to: [facility]/pharmacy [address] [place] [address] *states it was prescribed before documented in this encounter Plan of Treatment Upcoming Encounters Date Type Department Care Team (Late st Contact Info) Description 02/17/2025 10:00 AM EDT Medication Management [facility] MEDICINE [address] [place] [address] Carmen Becker, PharmD [address] [place] [address] documented as of this encounter Goals Goal Patient Goal Type Associated Problems Recent Progress Patient-Stated? Author Hemoglobin A1c < 7 Result Component 6.4( 9:29 AM EDT) No Jonathon Beckeryssa, PharmD Record [...] documented as of this encounter Care Teams Quill Skinner Relationship Specialty Start Date End Date Marita Wetzel DO [address] [place] [id number] PCP - General Family Medicine 04/21/18 [facility] 05/22/24 documented as of this encounter
--- OUTSIDE RECORDS SUMMARY | 2025-02-03 15:17 | XMS_ITS | Encounter Summary ---
Author Organization [employer] Address [address] [place] [address] [address] [place] [address] Care Team Providers Care Funeral Car Driver Name Role Phone Mary JaneMarita yousif Primary Care Provider [phone] Carmen Becker PharmD Unavailable [phone] Encounter Details Date Type Department Care Team (Late st Contact Info) Description 12/11/2022 Orders Only [facility] [address] [place] [address] Heather Nesbitt, RN [address] [place] [address] Social History Tobacco Use Types Packs/Day Years [...] AM EDT Medication Management [facility] MEDICINE [address] [place] [address] PuiaJonathonCarmen, PharmD [address] [place] [address] documented as of this encounter Visit Diagnoses Not on filedocumented in this encounter Additional Health Concerns Assessment Noted Time PHQ-9 Depression Total Score: 0 10/09/19 23 9:31 AM EDT documented as of this encounter Care Teams Funeral Car Driver Relationship Specialty Start Date End Date Marita Wetzel DO [address] [place] [address] PCP - General Family Medicine 04/21/18 Carmen Becker PharmD [address] [place] [address] Pharmacist Internal Medicine 07/21/23 01/21/24 [facility] 05/22/24 documented as of this encounter
--- OUTSIDE RECORDS SUMMARY | 2025-02-03 15:17 | XMS_ITS | Encounter Summary ---
Author Organization [employer] Address [address] [facility] 7[address] [place] [address] Care Team Providers Care Inspector Fuel Hose Name Role Phone Mary JaneMarita yousif DO Primary Care Provider [phone] Encounter Details Date Type Department Care Team (Latest Contact Info) Description 02/01/2025 Travel Social History Tobacco Use Types Packs/Day Years [...] 10:00 AM EDT Medication Management [facility] MEDICINE [address] [place] [address] TeteiaCarmen, PharmD [address] [place] [address] documented as of this encounter Goals Goal Patient Goal Type Associated Problems Recent Progress Patient-Stated? Author Hemoglobin A1c < 7 Result Component 6.4( 9:29 AM EDT) No PuiaJonathonCarmen, PharmD Record your blood sugar as directed Result Component No Puia Carmen, PharmD Note: Use CGM, ensuring sensor is scanned at least once every 8 hours to capture 24H data. Check BG manually, as directed. documented as of this encounter Visit Diagnoses Not on filedocumented in this encounter Additional Health Concerns Assessment Noted Time PHQ-9 Depression Total Score: 0 10/09/19 23 9:31 AM EDT documented as of this encounter Care Teams Inspector Fuel Hose Relationship Specialty Start Date End Date Marita Wetzel DO [address] [place] [address] PCP - General Family Medicine 04/21/18 [facility] 05/22/24 documented as of this encounter
--- OUTSIDE RECORDS SUMMARY | 2025-02-03 15:17 | XMS_ITS | Encounter Summary ---
Author Organization [employer] Address [address] [facility] 7[address] [place] [address] Care Team Providers Care Heel Seater Name Role Phone Marita Wetzel DO Primary Care Provider [phone] Carmen Becker PharmD Unavailable [phone] Reason for Visit * Reason Onset Date Comments Prior Authorization 04/25/2023 [employer] Encounter Details Date Type Department Care Team (Late st Contact Info) Description 04/25/2023 Telephone [facility] MEDICINE [address] [place] [address] Marita Wetzel DO [address] [place] [address] Prior Authorization ([employer]) Social History Tobacco [...] Medication Management [facility] MEDICINE [address] [place], [place] [phone] Carmen Becker, PharmD [address] [place] [address] documented as of this encounter Visit Diagnoses Not on filedocumented in this encounter Additional Health Concerns Assessment Noted Time PHQ-9 Depression Total Score: 0 10/09/19 23 9:31 AM EDT documented as of this encounter Care Teams Heel Seater Relationship Specialty Start Date End Date Marita Wetzel DO [address] [place] [address] PCP - General Family Medicine 04/21/18 Carmen Becker PharmD [address] [place] [address] Pharmacist Internal Medicine 07/21/23 01/21/24 [facility] 05/22/24 documented as of this encounter
--- OUTSIDE RECORDS SUMMARY | 2025-02-03 15:17 | XMS_ITS | Clinical Summary ---
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 Continuous Blood Gluc Life Skills Coordinator Volunteer (FreeStyle Seema 2 Duncombe) device 05/07/19 23 Active dorzolamide-ti molol (Cosopt) 22.3-6.8 MG/ML ophthalmic solution Administer 1 drop into both eyes 2 times daily. 07/11/19 23 Active ondansetron (Zofran) 4 MG tablet TAKE 1 TABLET BY MOUTH EVERY 8 HOURS IF NEEDED FOR NAUSEA OR VOMITING. 08/03/19 23 Active Continuous Blood Gluc Sensor (FreeStyle Seema 2 Sensor) misc Use as directed Active Procrit 48998 UNIT/ML injection 12/09/19 24 Active insulin lispro (HumaLOG KWIKPEN) 100 UNIT/ML injectionIndic ations:Type 2 diabetes mellitus with stage 3b chronic kidney disease, with long-term current use of insulin (HCC) Inject subQ 3 times daily with meals per sliding scale: blood sugar <150 = 0 units, 151-200= 6 units, 201-250=8 units, 251-300=10 units, 301-350=12 units, >351=14 units & call office 01/22/20 24 Active Continuous Glucose Life Skills Coordinator Volunteer (FreeStyle Seema 3 [place]combe) deviceIndicati ons:Type 2 diabetes mellitus with stage [...] BG 100 each 12/11/19 25 026 Active carvedilol (Coreg) 25 MG tablet TAKE 1 TABLET BY MOUTH EVERY DAY IN THE MORNING AND IN THE EVENING WITH MEALS 180 tablet 1 12/18/19 25 Active B complex-vitami n C-folic acid (Nephro-Rhina) 0.8 MG tablet Take 1 tablet by mouth in the morning. 05/24/19 25 Active Methoxy PEG-Epoetin Beta (MIRCERA IJ) 200 mcg. 01/06/20 25 026 Active predniSONE (Deltasone) 5 MG tablet Take 1 tablet by mouth Once per day. 01/20/20 25 Active sevelamer carbonate (Renvela) 800 MG tablet Take 800 mg by mouth 3 times daily. Active sodium bicarbonate 650 MG tablet Take 2 tablets by mouth 3 times daily. 07/20/19 23 025 Discontinued thiamine (Vitamin B-1) 100 MG tablet Take 1 tablet by mouth in the morning. 025 Discontinued amLODIPine (Norvasc) 10 MG tablet Take 1 tablet by mouth 1 (one) time each day. 04/10/20 025 Discontinued folic acid (Folvite) 1 MG tablet Take 1 tablet by mouth 1 (one) time each day. 04/10/20 025 Discontinued cyanocobalamin (Vitamin B-12) 1000 MCG tablet Take 1 tablet by mouth in the morning. Discontinued(Me d list cleanup (will not trigger notification to Pharmacy)) mycophenolate (Myfortic) 360 MG EC tablet Take 720 mg by mouth 2 times daily. 05/17/19 025 Discontinued pantoprazole (ProtoNix) 40 MG EC tablet TAKE 1 TABLET (40 MG) BY MOUTH DAILY BEFORE BREAKFAST DO NOT CRUSH, CHEW, OR SPLIT 06/27/19 Discontinued tacrolimus ER (Envarsus XR) 1 MG tablet ER Take 6 mg by mouth Once per day. Dose as per renal/transpl ant team in accordance with labs. 08/01/19 Discontinued isosorbide mononitrate ER (Imdur) 30 MG 24 hr tablet Take 30 mg by mouth in the morning. 10/26/19 025 Discontinued potassium chloride CR (Klor-Con M20) 20 MEQ ER tablet Take 2 pills 3x a day x 3 days then take 2 pills daily 11/19/19 Discontinued predniSONE (Deltasone) 2.5 MG tablet Take 3 tablets by mouth Once per day. 09/27/19 Discontinued sucralfate (Carafate) 1 g tablet Take 1 g by mouth 4 times daily. 10/10/19 025 Discontinued sertraline (Zoloft) 25 MG tablet TAKE 1 TABLET BY MOUTH EVERY DAY IN THE MORNING 30 tablet 3 06/17/19 Discontinued hydrOXYzine pamoate (Vistaril) 25 MG capsule TAKE 1 CAPSULE BY MOUTH EVERY 6 HOURS NEEDED FOR ANXIETY 30 capsule 1 06/17/19 Discontinued Lantus SoloStar 100 UNIT/ML penIndications :Type 2 diabetes mellitus with stage 3b chronic kidney disease, with long-term current use of insulin (HCC) INJECT 8 UNITS UNDER THE SKIN IN THE MORNING. 15 mL 3 12/09/19 25 025 Discontinued Active Problems Problem Noted Date Diagnosed Date [...] Problem Noted Date Diagnosed Date Resolved Date Pancreatic lesion 12/07/2024 02/01/2025 Assessment & Plan (12/07/2024 2:11 PM EDT): I refer her to GI STAT Abdominal ascites 12/07/2024 02/01/2025 Assessment & Plan (12/07/2024 2:10 PM EDT): I refer her to GI stat Abdominal enlargement 11/02/20242024 Assessment & Plan (11/02/2024 12:03 PM EDT): [...] for further evaluation Pain of upper abdomen 11/02/20242024 Acute vaginitis 05/26/2023 07/23/2023 Assessment & Plan (10/31/2023 11:27 AM EDT): S/s jose vaginitis, rx fluconazole sent to pharmacy Advised re tight control of DM. 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 Hyperuricemia 07/10/2022 05/01/2023 ESRD on peritoneal dialysis ([facility]) 07/09/2022 07/30/2022 Neutropenia 07/05/2022 07/30/2022 Stage 3 chronic kidney disease ([facility]) 06/24/2022 05/01/2023 Iron deficiency anemia 10/01/201907/30 Sciatica 05/06/2018 05/01/2023 Simple renal cyst 01/30/2015 07/30/2022 Diabetes mellitus due to und erlying condition with stable proliferative diabetic retinopathy, bilateral 05/14/2013 07/30/2022 Overview (07/10/2022): diabetic retinopathy, neuropathy Type 2 diabetes mellitus Kidney problem 05/14/2013 07/30/2022 Overview (07/10/2022): Kidney problem Encounters Date Type Department Care Team Description 02/01/2025 9:00 AM EDT Office Visit [address] [address] Marita Wetzel DO Type 2 diabetes mellitus with hyperglycemia, with long-term current use of insulin ([facility]) (Primary Dx); Essential hypertension; Other hyperlipidemia; Encounter for vaccination; Encounter for immunization; Pancreatic mass 02/01/2025 Travel 01/27/2025 Orders Only GENERIC EXTERNAL DATA DEPARTMENT Provider, Generic External Data 01/27/[address] [address] Marita Wetzel DO Chart Prep 01/25/2025 Patient Outreach [address] [address] Marita Wetzel DO Pre-visit Planning (SDOH screening negative and tobacco screening negative) 01/24/[address] [address] Marita Wetzel DO Appointment Request 01/24/2025 Travel 01/19/2025 Orders Only GENERIC EXTERNAL DATA DEPARTMENT Provider, Generic External Data 12/17/2024 Refill [facility] [address] [place] [phone] Marita Wetzel DO 12/16/2024 Telephone [facility] [address] [place] [phone] Marita Wetzel DO Chart Prep 12/09/[address] [address] Faye Batista RN Type 2 diabetes mellitus with stage 3b chronic kidney disease, with long-term current use of insulin (CMS/HCC) 12/08/2024 Orders Only [facility] [address] [place] [phone] Cherry Landa MD 12/08/2024 Refill [facility] [address] [place] [phone] Cherry Landa MD Type 2 diabetes mellitus with stage 3b chronic kidney disease, with long-term current use of insulin (CMS/HCC) 12/07/2024 11:20 AM EDT Office Visit [facility] [address] [place] [phone] Cherry Landa MD Essential hypertension (Primary Dx); Type 2 diabetes mellitus with hyperglycemia, with long-term current use of insulin (CMS/HCC); Type 2 diabetes mellitus with stage 3b chronic kidney disease, with long-term current use of insulin (CMS/HCC); Pancreatic lesion; Other ascites 12/07/2024 Refill [facility] [address] [place] [phone] Cherry Landa MD Type 2 diabetes mellitus with stage 3b chronic kidney disease, with long-term current use of insulin (CMS/HCC) 12/07/2024 Travel 12/06/2024 Telephone [facility] [address] [place] [phone] Marita Wetzel DO telephone call 11/27/2024 Orders Only [facility] External Provider, [facility] 11/05/2024 Telephone [facility] [address], [place] [phone] Marita Wetzel, Results; Referral from Last 3 Months Immunizations Immunization Administration Dates Next Due Hep B, adult 10/02/2021, 2,08/03/2021,07/04,05/31/2021,03/04/2017,05/09/2016 ,04/11/2016 HepB-CpG 10/02/2021, 2,08/03/2021,07/04,05/31/2021 Influenza injectable quadriv alent IIV4 with preservative 02/12/2018,03/04/2017,04/11/2016 Influenza injectable quadriv alent preservative free 02/26/2023,01/23/2022,01/28/2020,03/09,01/30/2015 Influenza, IIV3, injectable 02/12/2024,1 ,02/14/2021,03/09,02/12/2018,03/04/2017,04/11/2016 ,01/30/2015,03/04/2014,01/23/2011 Influenza, Injectable, MDCK, preservative free 01/28/2025 Influenza, Split (incl. norman fied surface antigen) 01/06/2013,02/04/2012 Moderna Covid-19 Vaccine 12+ 06/22/2020,05/25/19 21 Moderna Covid-19 Vaccine 6+ Bivalent 02/01/2022 PPD Test 03/05/2024,02/20/2024,03/04/2023 Pfizer Covid-19 Vaccine 12+ 02/01/2025 Pneumococcal Conjugate PCV 13 01/05/2020 Pneumococcal Conjugate PCV 20 02/01/2025 Pneumococcal Polysaccharide PPSV23 05/03/2021, TD (adult), 2 Lf tetanus tox oid, preservative free, adsorbed 01/18/2022 Td (adult), unspecified 01/18/2022 Tdap 11/27/2024,01/23/2011 Varicella 09/19/2021,05/28/2021 Social History Tobacco Use Types [...] Mass Index 23.49 02/01/2025 9:25 AM EDT Plan of Treatment Upcoming Encounters Date Type Department Care Team (Late st Contact Info) Description 02/17/2025 10:00 AM EDT Medication Management [facility] [address] [place] [address] Carmen Becker, PharmD [address] [place] [address] Health Maintenance Due Date Last Done Comments [...] 08/12/2018 Depression Screening 10/09/2023 10/08/2022, 10/09/19 23 Lipid Panel 10/05/2024 10/06/2023 Mammogram 07/16/2025 07/17/2023, 06/20, 07/11/2022, Additional history exists COVID-19 Vaccine (5 - Moderna risk 2023- season) 2025 02/01/2025, 02/01/2022, 06/22/2020, Additional history exists Diabetes: Hemoglobin A1C 08/02/2025 025, 12/07/2024, 12/09/2023, Additional history exists SDOH Screening 01/25/2026 01/25/2025 Tobacco Screening 02/01/2026 02/01/2025 DTaP/Tdap/Td Vaccines (5 - Td or Tdap) 11/27/2034 11/27/2024, 01/18/2022, 01/18/2022, Additional history exists Hepatitis B Vaccines Completed 10/02/2021, 10/02/2021, 10/01/2021, Additional history exists Influenza Vaccine Completed 01/28/2025, , 02/26/2023, Additional history exists Pneumococcal Vaccine: 50+ Years Completed 02/01/2025, 05/03/2021, 01/05/2020, Additional history exists HIB Vaccines Aged Out [...] 6.4( 9:29 AM EDT) No Carmen Becker, PharmSalvatore Record [...] with long-term current use of insulin (HCC) CREATININE, SERUM Routine 01/27/2025 4:2 3 PM EDT UREA NITROGEN (BUN) Routine 01/27/2025 4 :23 PM EDT LIPASE Routine 01/19/2025 1:45 PM EDT COMPREHENSIVE METABOLIC PANEL Routine 01/19/2025 1:45 PM EDT CBC WITH AUTO DIFFERENTIAL Routine 01/19/2025 1:45 PM EDT POCT GLUCOSE Routine 12/07/2024 11:38 AM EDT Type 2 diabetes mellitus with stage 3b chronic kidney disease, with long-term current use of insulin ([facility]) POCT GLYCATED HEMOGLOBIN, TOTAL Routine 12/07/2024 11:38 AM EDT Type 2 diabetes mellitus with stage 3b chronic kidney disease, with long-term current use of insulin ([facility]) CT ABDOMEN PELVIS WO CONTRAST Routine 11/27/2024 [...] to Health Maintenance Results * (ABNORMAL) POCT Hgb A1c (02/01/2025 9:29 AM EDT) Only the most recent of2 resultswithin the time period is included. Hemoglobin A1C 6.4(A) 4.0 - 5.7 % QC Media Lot # [id number] Lot# Expiration Date 5, Blood 02/01/2025 9:29 AM EDT Marita Wetzel DO POINT OF CARE TEST ENTER/HUMBERTO T ORDERABLES Final Result * POCT Glucose (02/01/2025 9:28 AM EDT) Only the most recent of2 resultswithin the time period is included. Glucose Blood, POC 164 60 - 200 mg/dL QC Media Lot # [id number] Lot# Expiration Date Blood Capillary blood specimen / Unknown 02/01/2025 9:28 AM EDT Marita Wetzel DO POINT OF CARE TEST ENTER/HUMBERTO T ORDERABLES Final Result * (ABNORMAL) Creatinine, Serum (01/27/2025 4:23 PM EDT) Creatinine, Serum 4.40(HH) 0.5 - 1.4 mg/dL [facility] Comment:Critical value for t est(s): CREA Results called to and readback by: ESTELA Person calling: TIMI Date: 01/27/25Time:1833 Estimated Glomerular Filt Rate 10 [facility] Comment:Chronic Kidney Disea se: Estimated GFR < 60 mL/min/1.82x0Lumftw Kidney Disease: Estimated GFR < 15 mL/min/1.73m2 01/27/2025 4:23 PM EDT 01/27/2025 4:23 PM EDT Generic External Data Provider LAB BLOOD ORDERAB LES Final Result [facility] [address] [place] [address] [phone] * (ABNORMAL) BUN (Blood Urea Nitrogen) (01/27/2025 4:23 PM EDT) [facility] Urea Nitrogen (BUN) 21(H) 9 - 16 mg/dL [facility] 01/27/2025 4:23 PM EDT 01/27/2025 4:23 PM EDT us Generic External Data Provider LAB BLOOD ORDERAB LES Final Result Performing Organization Address [facility] Co de Phone Number [facility] [address] [place] [address] [phone] * (ABNORMAL) CBC auto differential (01/19/2025 1:45 PM EDT) Only the most recent of2 resultswithin the time period is included. [facility] White Blood Count 7.1 4.8 - 10.8 X10*3/uL [facility] Red Blood Count 3.82(L) 4.20 - 5.50 X10*6/uL [facility] Hemoglobin 10.3(L) 12.0 - 16.0 g/dl [facility] Hematocrit 33.6(L) 37.0 - 47.0 % [facility] Mean Corpuscular Volume 88.0 80.0 - 98.0 fL [facility] Mean Corpuscular Hemoglobin 27.0 27.0 - 33.0 pg [facility] Mean Corpuscular HGB Conc 30.7(L) 31.0 - 35.0 g/dl [facility] Red Cell Distribution Width 17.9(H) 11.0 - 16.0 % [facility] Platelet Count 169 160 - 400 X10*3/uL [facility] Mean Platelet Volume 9.5 9.4 - 12.3 fL [facility] Neutrophils Percent Auto 81.8(H) 45 - 73 % [facility] Imm Gran Pct Auto 0.6(H) 0.0 - 0.4 % [facility] Lymphocytes Percent Auto 9.1(L) 20 - 40 % [facility] Monocytes Percent Auto 7.6 2 - 11 % [facility] Eosinophils Percent Auto 0.8 0 - 4 % [facility] Basophils Percent Auto 0.1 0 - 2 % [facility] NRBC Pct Auto 0.0 0.0 - 0.2 /100WBC [facility] Neutrophils Absolute Auto 5.8 2.0 - 8.3 x10*3/uL [facility] Imm Gran Abs Auto 0.04(H) 0.00 - 0.03 X10*3/uL [facility] Lymphocytes Absolute Auto 0.6(L) 1.2 - 4.9 X10*3/uL [facility] Monocytes Absolute Auto 0.5 0.1 - 1.2 X10*3/uL [facility] Eosinophils Absolute Auto 0.1 0.0 - 0.4 X10*3/uL [facility] Basophils Absolute Auto 0.0 0.0 - 0.2 X10*3/uL [facility] NRBC Abs Auto 0.000 0.0 - 0.012 X10*3/uL [facility] 01/19/2025 1:45 PM EDT 01/19/2025 1:48 PM EDT us Generic External Data Provider LAB BLOOD ORDERAB LES Final Result Performing Organization Address City/[facility] Co de Phone Number [facility] [address] [place] [phone] * (ABNORMAL) Lipase (01/19/2025 1:45 PM EDT) Lipase 6(L) 8 - 78 U/L [facility] 01/19/2025 1:45 PM EDT 01/19/2025 1:48 PM EDT us Generic External Data Provider LAB BLOOD ORDERAB LES Final Result Performing Organization Address City/[facility]/ZIP Co de Phone Number [facility] [address] [place] [address] [phone] * (ABNORMAL) Comprehensive Metabolic Panel (01/19/2025 1:45 PM EDT) Only the most recent of2 resultswithin the time period is included. Sodium 137 135 - 145 mmol/L [facility] Potassium 4.6 3.3 - 5.1 mmol/L [facility] Chloride 101 96 - 108 mmol/L [facility] Carbon Dioxide 25 22 - 29 mmol/L [facility] Anion Gap 16 12 - 20 [facility] Urea Nitrogen (BUN) 34(H) 9 - 16 mg/dL [facility] Creatinine, Serum 5.68(HH) 0.5 - 1.4 mg/dL [facility] Comment:Critical value for t est(s): CREA Results called to coco back by: ROBIN Person calling: IDRISElance Date:01/19/25 Time: 14:05 Creatinine Clr Calc Pharmacy 8.8 [facility] Comment:Provided height and weight: 167.64 cm,56.245 kg.eGFR (calculated from the MDRD study equation) and eCrCl(calculated from the Cockcroft-Gault equation) are based ondifferent parameters and may not yield comparable results.If eCrCl result is absurd, please check patient'sheight/weight. Estimated Glomerular Filt Rate 8 [facility] Comment:Chronic Kidney Disea se: Estimated GFR < 60 mL/min/1.29v4Psnjof Kidney Disease: Estimated GFR < 15 mL/min/1.73m2 Glucose 136(H) 60 - 115 mg/dL [facility] Calcium 8.9 8.4 - 10.2 mg/dL [facility] Bilirubin, Total 0.7 0.0 - 1.0 mg/dL [facility] Aspartate Amino Transferase 15 5 - 31 U/L [facility] Alanine Aminotransferase <6 0 - 31 U/L [facility] Total Protein 8.2(H) 6.5 - 8.0 g/dL [facility] Albumin Level 3.4(L) 3.5 - 5.0 g/dL [facility] Alkaline Phosphatase 134(H) 39 - 117 U/L [facility] 01/19/2025 1:45 PM EDT 01/19/2025 1:48 PM EDT us Generic External Data Provider LAB BLOOD ORDERAB LES Final Result Performing Organization Address City/State/[facility] Co de Phone Number [facility] [address] [place] [phone] * CT Abdomen Pelvis w/o Contrast (11/27/2024 2:54 PM EDT) Anatomical Region Laterality Modality Body, Pelvis, Abdomen Computed T omography 11/27/2024 2:54 PM EDT Narrative 11/27/2024 2:55 PM EDT [place] [address] CT Scan Report Signed Patient: Alix Sharp MR#: [id number] 43 : 1960 Acct:[id number] Age/Sex: 64 / F ADM Date: 11/27/24 Loc: HO.ED Attending Dr: Ordering Physician: Shavonne Lima NP Date of Service: 11/27/24 Procedure(s): CT abdomen pelvis wo IV con Accession Number(s): [id number] cc: Marita Wetzel DO; Shavonne Lima NP Report Number: [id number]: Total DLP = 644.00 mGy-cm CLINICAL HISTORY: [...] 11/27/24 1455 DD/ 1454 TD/TT: 11/27/24 1454 Process Checker: Procedure Note Donotuseinterpreter, Image - 11/27/[address] [place] [address] [address] Scan Report Signed Patient: Alix Sharp BMR#: [id number] [birth year] : 1Acct:[id number] Age/Sex: 64 / FADM Date: 11/27/24 Loc: HO.ED Attending Dr: Ordering Physician: Shavonne Lima NP Date of Service: 11/27/24 Procedure(s): CT abdomen pelvis wo IV con Accession Number(s): [id number] cc: Marita Wetzel DO; Shavonne Lima KIER BOILER Report Number: [id number]: Total DLP = 644.00 mGy-cm CLINICAL HISTORY: [...] 11/27/24 1455 DD/ 1454 TD/TT: 11/27/24 1454 Process Checker: [facility] External Provider IMG CT PROCEDURES Final Result * XR Elbow 3+ Views Left (11/27/2024 10:15 AM EDT) Anatomical Region Laterality Modality Upper Extremities, Elbow Left Radiogr aphic Imaging 11/27/2024 10:1 5 AM EDT Narrative 11/27/2024 10:17 AM EDT [address] [address] XRay Report Signed Patient: Alix Sharp MR#: [id number] 43 : 1960 Acct:[id number] Age/Sex: 64 / F ADM Date: 11/27/24 Loc: HO.ED Attending Dr: Ordering Physician: Generic ED Physician Date of Service: 11/27/24 Procedure(s): XR elbow LT min 3V Accession Number(s): [id number] cc: Generic ED Physician; Marita Wetzel DO [...] 11/27/24 1016 DD/ 1015 TD/TT: 11/27/24 1015 Process Checker: Procedure Note Donotuseinterpreter, Image - 11/27/[address] [address] XRay Report Signed Patient: Alix Sharp BMR#: [id number] [birth year] : 1Acct:[id number] Age/Sex: 64 / FADM Date: 11/27/24 Loc: HO.ED Attending Dr: Ordering Physician: Generic ED Physician Date of Service: 11/27/24 Procedure(s): XR elbow LT min 3V Accession Number(s): [id number] cc: Generic ED Physician; Marita Wetzel DO [...] 11/27/24 1016 DD/ 1015 TD/TT: 11/27/24 1015 Process Checker: [facility] External Provider IMG XR PROCEDURES Final Result * XR Hip left with Pelvis 1 view (11/27/2024 10:00 AM EDT) Anatomical Region Laterality Modality Lower Extremities, Hip Bilateral Radiograp hic Imaging 11/27/2024 10:0 0 AM EDT Narrative 11/27/2024 10:01 AM EDT [address] [address] XRay Report Signed Patient: Alix Sharp MR#: [id number] 43 : 1960 Acct:[id number] Age/Sex: 64 / F ADM Date: 11/27/24 Loc: HO.ED Attending Dr: Ordering Physician: Generic ED Physician Date of Service: 11/27/24 Procedure(s): XR hip LT w PEL1V Accession Number(s): [id number] cc: Generic ED Physician; Marita Wetzel DO CLINICAL HISTORY: fall of left hip 3 view, pelvis and left hip Comparison: None provided Findings: Curvilinear lucent line projecting over the medial aspect of the right inferior ischiopubic ramus may be artifactual or due to an age-indeterminate fracture. Correlate clinically. Otherwise no acute fracture. Three proximal femoral screws without hardware complications. [id number] degenerative narrowing of the superomedial aspects of [...] 11/27/24 1001 DD/ 1000 TD/TT: 11/27/24 1000 Process Checker: Procedure Note Donotuseinterpreter, Image - 11/27/[address] [address] XRay Report Signed Patient: Alix Sharp BMR#: [id number] 43 : 1960cct:[id number] Age/Sex: 64 / FADM Date: 11/27/24 Loc: HO.ED Attending Dr: Ordering Physician: Generic ED Physician Date of Service: 11/27/24 Procedure(s): XR hip LT w PEL1V Accession Number(s): [id number] cc: Generic ED Physician; Marita Wetzel DO CLINICAL HISTORY: fall of left hip 3 view, pelvis and left hip Comparison: None provided Findings: Curvilinear lucent line projecting over the medial aspect of the right inferior ischiopubic ramus may be artifactual or due to an age-indeterminate fracture. Correlate clinically. Otherwise no acute fracture. Three proximal femoral screws without hardware complications. [id number] degenerative narrowing of the superomedial aspects of [...] 11/27/24 1001 DD/ 1000 TD/TT: 11/27/24 1000 Process Checker: [facility] External Provider IMG XR PROCEDURES Final Result * (ABNORMAL) Lipid Panel, Standard (10/06/2023) Triglycerides 157 40 - 160 mg/dL Cholesterol 115 0 - 200 mg/dL HDL Cholesterol 31(A) 35 - 70 mg/dL LDL Cholesterol 57 mg/dL Blood Venous blood specimen / Unknown [facility] Provider LAB BLOOD ORDERABLES Carly l Result * BI Mammogram Screening Tomosynthesis Bilateral (07/17/2023 10:45 AM EDT) Anatomical Region Laterality Modality Breast Bilateral Mammography 07/17/2023 10:4 5 AM EDT Narrative 08/03/2023 8:29 PM EDT [address] [place] [address] Mammography Report Signed Patient: Alix Dennis MR#: [id number] : 1960 Acct:[id number] Age/Sex: 63 / F ADM Date: 07/17/23 Loc: RICHY Attending Dr: Marita Wetzel DO Ordering Physician: Marita Wetzel DO Results: 2B enign Findings Date of Service: 07/17/23 Follow Up: 1 Year From Orig inal Mammogram Procedure(s): MM tomosynthesis screening BI Accession Number(s): [id number] cc: Marita Wetzel DO EXAMINATION: MM SCREENING [...] MD in OV> 08/03/232024 DD/ 1045 TD/TT: Process Checker: Procedure Note Donotuseinterpreter, Image - [facility] [address] [place] [address] Mammography Report Signed Patient: Alix Dennis FMR#: [id number] : 1960cct:[id number] Age/Sex: 63 / FADM Date: 07/17/23 Loc: HO.MAMMO Attending Dr: Marita Wetzel DO Ordering Physician: Marita Wetzelults: 2B enign Findings Date of Service: 07/17/23Follow Up: 1 Year From Orig ina Mammogram Procedure(s): MM tomosynthesis screening BI Accession Number(s): [id number] cc: Marita Wetzel DO EXAMINATION: MM SCREENING [...] date for their next mammogram. Dictated By: aMi Gaffney MD Signed By: <Electronically signed by Mai Gaffney MD in OV> 08/03/235 DD/ 1045 TD/TT: Process Checker: Marita Wetzel DO G BI PROCEDURES Edited Res ult - Final * Hm Pap Smear (08/12/2018) Pap Negative for intraephithelial lesion or malignancy Negative for intraephithelial lesion or malignancy, Other HPV Undetected Undetected, Indeterminate, Quantitative, Not Detected Historical Provider HEALTH MAINTENANCE Final Result from Last 3 Months or Most Recently Relevant to Health Maintenance Insurance MEDICARE [employer] Care Teams Electrical Engineering Teacher Relationship Specialty Start Date End Date Marita Wetzel DO [address] [place] [address] PCP - General Family Medicine 04/21/18 [facility] 05/22/24
--- OUTSIDE RECORDS SUMMARY | 2025-02-03 15:17 | XMS_ITS | Encounter Summary ---
Author Organization [employer] Address [address] [facility] [address] [place] [address] Care Team Providers Care Senior Courtroom Clerk Name Role Phone Marita Wetzel DO Primary Care Provider + [phone] Reason for Visit * Reason Onset Date Comments Hospital Follow-up 06/11/2024 Encounter Details Date Type Department Care Team ([facility] st Contact Info) Description 06/11/2024 Telephone [facility] [address] [place] [address] Marita Wetzel DO [address] [place], [place] [phone] Hospital Follow-up Social History Tobacco Use Types [...] from pt requesting a HDF appt. Hospital: [facility] Date of admission: 05/31/2024 Discharge date: ------ Diagnosed:kidney failure *Send message to [place] Clinical Care Coordinators documented in this encounter Plan of Treatment Upcoming Encounters Date Type Department Care Team (Late st Contact Info) Description 02/17/2025 10:00 AM EDT Medication Management [facility] [address] [place] [address] Carmen Becker, PharmD [address] [place] [address] documented as of this encounter Goals Goal Patient Goal Type Associated Problems Recent Progress Patient-Stated? Author Hemoglobin A1c < 7 Result Component 6.4( 9:29 AM EDT) No Puia, Carmen, PharmD Record [...] as of this encounter Care Teams Senior Courtroom Clerk Relationship Specialty Start Date End Date Marita Wetzel DO [address] [place] [address] PCP - General Family Medicine 04/21/18 [facility] 05/22/24 documented as of this encounter
== END 2025-02-03 12:05 | disposition home or self-care (01) ==
LOC: HO.MRI 12:04
PROVIDERS: PCP Family Medicine; Visit Provider Family Medicine
DX: K86.89 Other specified diseases of pancreas (principal)
CPT/HCPCS: 74183; A9585

== ENCOUNTER → 2025-02-03 13:48 | Outpatient (BNV) | payer MEDICARE, OTHER, SELFPAY | PROVIDERS: PCP Family Medicine; Visit Provider Radiology Body Imaging | DX: K80.20 Calculus of gallbladder without cholecystitis without obstruction (principal); R18.8 Other ascites; R16.2 Hepatomegaly with splenomegaly, not elsewhere classified; J98.11 Atelectasis | CPT/HCPCS: 74183 ==

== ENCOUNTER 2025-02-07 16:35 | Emergency (ER) | payer MEDICARE, OTHER, SELFPAY ==
--- OUTSIDE RECORDS SUMMARY | 2024-07-02 06:30 | XMS_ITS ---
Author Organization [facility] Address [address] [place] [phone] Care Team Providers Care Object Oriented Programmer Name Role Phone Jah Miryam Unavailable [phone] Encounters Encounter Location Date Provider Diagnosis [address] [address] 07/02/2024 Miryam Tyson Plan Of Treatment No Information Progress Notes * Farhan BEARDaDOB:1960 (64 yo F)Acc No.[id number]:07/02/2024 Progress Notes Patient: Alix SHEARER Provider: Esvin Tyson DPM :1960 A ge:64 Y S ex:Female Date:07/02/2024 Address:[address] [place], [place] [id number] Subjective: * Chief Complaints: * * Medical [...] 0 07/02/2024 Generated for Michael santos/Chloe/Aurelia on: 09:06 PM EDT
--- NOTE | ~2025-02-07 | CT_ITS ---
CLINICAL HISTORY: question hardware loosened inferiorly CT pelvis without contrast Comparison: CR - XR HIP LT W PEL1V - 02/07/25 17:34 EDT Findings: Hernia mesh is present in the anterior abdomen. Body wall anasarca. No fracture deformity of the visualized pelvis. No acute fracture of the proximal left hip. There has been a previous open reduction internal fixation of the left hip with 3 cannulated screws traversing the left femoral neck and a old healed left subcapital hip fracture. The anterosuperior most screw projects beyond the cortex of the hip, into the anterior joint space, series 3, image 74. The posterior inferior most screw demonstrates some lucency along the lateral aspect in the femur measuring up to 4 mm, series 6, image 79. No other areas of lucency. Arterial vascular calcifications present. IMPRESSION: 1. No acute fracture deformity. 2. Anterosuperior most screw in the left hip projects beyond the cortex of the hip, into the anterior joint space. 3. 4 mm of lucency along the lateral aspect of the posteroinferior most screw in the hip which could suggest some loosening of the screw. This document has been electronically signed by: De Ahmadi MD on 02/07/2025 21:37:23
--- NOTE | ~2025-02-07 | XR_ITS ---
CLINICAL HISTORY: pain 4 view, pelvis and left hip Comparison: CR - XR HIP LT W PEL1V - 11/27/24 09:38 EDT Findings: There has been previous pinning of the left femoral neck with 3 cannulated screws. No change in alignment of old subcapital hip fracture. There is some lucency around the inferior most screw raising the question of loosening. Extensive arterial vascular calcifications. No new periprosthetic fracture. The most superior screw projects beyond the cortex of the femoral head superiorly, which may be impacting the joint space. The soft tissues are unremarkable. Large hernia mesh artifact over the lower abdomen. No disruption of the pelvic ring. IMPRESSION: 1. No new periprosthetic fracture. 2. There is some lucency around the inferior most left hip screw raising the question of loosening. Superior most screw projects slightly into the joint space at the tip. This document has been electronically signed by: De Ahmadi MD on 02/07/2025 18:43:29
[2025-02-07 16:58] VITALS: PULSE 192; RESP 18; TEMP 36.6; O2SAT 98; BMI 25.9
--- NOTE | 2025-02-07 16:58 | ED.GENADULT ---
HPI - General Adult General Chief complaint: Extremity Injury, Lower Stated complaint: Hip pain Time Seen by Provider: 02/07/25 20:11 Source: patient Limitations: no limitations History of Present Illness ED Provider: Nadja Freeman PA-C HPI narrative: 64-year-old female with a history of hypertension, hyperlipidemia, diabetes, chronic kidney disease now end-stage renal disease on hemodialysis, heart failure with preserved ejection fraction 60-65% ECHO 05/2024, who presents with atraumatic left hip pain x1 week. Patient states she has been ambulating up and down a flight of stairs more regularly since the onset of her pain. Again, denies trauma. Denies redness or swelling of the joint. No fevers. Related Data Home Medications ?Medication ?Instructions ?Recorded ?Confirmed acetaminophen 325 mg tablet 650 mg PO Q6H PRN Fever 04/07/24 05/28/24 carvedilol 25 mg tablet 25 mg PO BID 04/07/24 05/28/24 insulin lispro 200 unit/mL (3 mL) 2 - 10 sliding scale dose subcut 04/07/24 05/28/24 subcutaneous pen TID prednisone 10 mg tablet 10 mg PO BID 12/16/24 Previous Rx's ?Medication ?Instructions ?Recorded fluticasone propionate 115 2 puff inhalation Q12H 30 days #12 12/30/24 mcg-salmeterol 21 mcg/actuation grams HFA inhaler (Advair HFA) budesonide-formoterol HFA 160 2 puff inhalation BID 30 days 12/31/24 mcg-4.5 mcg/actuation aerosol #10.2 grams inhaler ondansetron 4 mg disintegrating 4 mg PO Q8H PRN nausea and 01/19/25 tablet vomiting #4 tabs Allergies Allergy/AdvReac Type Severity Reaction Status Date / Time codeine (CODEINE) Allergy Intermediate Hives and Verified 02/07/25 17:00 pruritus oxycodone (OXYCODONE) Allergy Intermediate HIVES Verified 02/07/25 17:00 Review of Systems Review of Systems: Yes all other systems are reviewed and are negative Constitutional: Constitutional: Denies fatigue and Denies fever(s) Musculoskeletal: Musculoskeletal: Reports arthralgias and Denies joint swelling Integumentary/Breasts: Skin/Breast: Denies erythema Endocrine: Endocrine: Denies fatigue PMFSH Past Medical History Attestation statement: The following information was validated with the patient. 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 Mother CHF (congestive heart failure) Social History Social History Household Members: Spouse Housing: House Do you presently have visiting nurse or other home services: Yes Alcohol intake: never Comment: patient is bedbound at this time Patient Tobacco Use Status: Never used Tobacco Advance Directives: Yes Advance Directives on File: Yes Advance Directives Date on File: 04/07/24 Do you have a plan to hurt others: No Plan service: Yes Physical Exam ED Vital Signs: Vital Signs - 24 hr 02/07/25 16:58 02/07/25 20:27 Temperature 98 F 97.8 F Pulse Rate 192 H 66 Respiratory Rate 18 18 Blood Pressure 176/75 H Pulse Oximetry 98 100 Oxygen Delivery Method Room Air Room Air BMI result Body Mass Index 25.9 Const Other: Alert well-appearing Orientation/consciousness: patient oriented x3 Resp Effort & Inspection: normal respiratory effort Cardio Other: Normal peripheral perfusion Skin Other: Warm dry no rash Neuro Other: Antalgic gait General: patient oriented x3, no focal motor deficits and CN's II-XI intact bilaterally Psych Other: Cooperative Course Course Course Narrative: RME, this is a rapid medical exam performed by Chase Simons please refer to primary provider for complete H&P- 64-year-old female presents for evaluation of atraumatic left hip pain. She reports breaking of the hip about a year ago but has had significant pain for the last couple of days. Plan for x-ray. The patient has chronic kidney disease on dialysis. Plan for labs and an x-ray Medications Administered Discontinued Medications Generic Name Dose Route Start Last Admin Trade Name Sarah PRN Reason Stop Dose Admin Acetaminophen 975 mg 02/07/25 20:24 02/07/25 20:53 Acetaminophen 325 Mg Tablet PO 02/07/25 20:25 975 mg ONCE ONE Administration Medical Decision Making Medical Decision Making [facility] Narrative: 64-year-old female with a history of hypertension, hyperlipidemia, diabetes, chronic kidney disease now end-stage renal disease on hemodialysis, heart failure with preserved ejection fraction 60-65% ECHO 05/2024, who presents with atraumatic left hip pain x1 week. Patient states she has been ambulating up and down a flight of stairs more regularly since the onset of her pain. Again, denies trauma. Denies redness or swelling of the joint. No fevers. Problem: Age, diabetes History: Per patient I have considered the following differential diagnoses: Fracture, dislocation, arthritis, septic joint Plan: Screening labs and x-rays ordered from triage, there was concern for displacement of 1 of the screws, we will obtain a CT scan. In discussion with the patient, she states she has discuss this issue with her orthopedist in the past, however it has not been confirmed whether there is a loose screw. Giving Tylenol for her pain. There was no redness or swelling of the joint, no fevers to suggest a septic joint/bursitis. I have independently reviewed the following tests: Labs: No leukocytosis, stable anemia, creatinine 3.66, no electrolyte abnormalities noted X-ray left hip:Findings: There has been previous pinning of the left femoral neck with 3 cannulated screws. No change in alignment of old subcapital hip fracture. There is some lucency around the inferior most screw raising the question of loosening. Extensive arterial vascular calcifications. No new periprosthetic fracture. The most superior screw projects beyond the cortex of the femoral head superiorly, which may be impacting the joint space. The soft tissues are unremarkable. Large hernia mesh artifact over the lower abdomen. No disruption of the pelvic ring. IMPRESSION: 1. No new periprosthetic fracture. 2. There is some lucency around the inferior most left hip screw raising the question of loosening. Superior most screw projects slightly into the joint space at the tip. CT left hip:IMPRESSION: 1. No acute fracture deformity. 2. Anterosuperior most screw in the left hip projects beyond the cortex of the hip, into the anterior joint space. 3. 4 mm of lucency along the lateral aspect of the posteroinferior most screw in the hip which could suggest some loosening of the screw. Differential Diagnosis Differential Diagnoses: The differential diagnosis associated with the presentation includes See medical decision-making Admission/Observation Consideration of admission/observation: Escalation of care including admission/observation considered Not applicable Lab Data MDM Lab Attestation statement: I reviewed the patient's lab results. 02/07/25 17:13 02/07/25 17:13 Labs: Lab Results 02/07/25 Range/Units 17:13 WBC 5.8 (4.8-10.8) X10*3/uL RBC 3.96 L (4.20-5.50) X10*6/uL Hgb 10.3 L (12.0-16.0) g/dl Hct 34.9 L (37.0-47.0) % MCV 88.1 (80.0-98.0) fL MCH 26.0 L (27.0-33.0) pg MCHC 29.5 L (31.0-35.0) g/dl RDW 18.3 H (11.0-16.0) % Plt Count 200 (160-400) X10*3/uL MPV 9.2 L (9.4-12.3) fL Immature Gran % (Auto) 0.5 H (0.0-0.4) % Neut % (Auto) 79.5 H (45-73) % Lymph % (Auto) 11.4 L (20-40) % Todd % (Auto) 7.1 (2-11) % Eos % (Auto) 1.2 (0-4) % Baso % (Auto) 0.3 (0-2) % Lymph # (Auto) 0.7 L (1.2-4.9) X10*3/uL Todd # (Auto) 0.4 (0.1-1.2) X10*3/uL Eos # (Auto) 0.1 (0.0-0.4) X10*3/uL Baso # (Auto) 0.0 (0.0-0.2) X10*3/uL Abs Immat Gran (auto) 0.03 (0.00-0.03) X10*3/uL Absolute Neuts (auto) 4.6 (2.0-8.3) x10*3/uL Absolute Nucleated RBC 0.020 H (0.0-0.012) X10*3/uL Nucleated RBC % (auto) 0.3 H (0.0-0.2) /100WBC Sodium 137 (135-145) mmol/L Potassium 3.9 (3.3-5.1) mmol/L Chloride 98 (96-108) mmol/L Carbon Dioxide 26 (22-29) mmol/L Anion Gap 17 (12-20) BUN 16 (9-16) mg/dL Creatinine 3.66 H (0.5-1.4) mg/dL Estim Creat Clear Calc 16.4 Estimated GFR 12 Random Glucose 161 H (60-115) mg/dL Calcium 8.8 (8.4-10.2) mg/dL Total Bilirubin 0.5 (0.0-1.0) mg/dL AST 24 (5-31) U/L ALT 8 (0-31) U/L Alkaline Phosphatase 153 H (39-117) U/L Total Protein 8.6 H (6.5-8.0) g/dL Albumin 3.8 (3.5-5.0) g/dL Radiology Impression Discussion of test interpretation with radiology: I have reviewed the radiologist's reading. Discharge Plan Discharge Clinical Impression: Painful orthopaedic hardware, Arthralgia of hip, left Patient Disposition: Home, Self-Care Instructions: Hip Pain (ED), Arthralgia (ED) Additional Instructions: The CT scan of the hip suggest that you may have loosening of 1 of the screws. I have provided you with the CT scan read in your discharge paperwork. You need to follow back up with your orthopedist at [facility], call tomorrow to schedule an appointment. In the meantime, you can take Tylenol 1000 mg taken every [address] hours for your pain. CT left hip:IMPRESSION: 1. No acute fracture deformity. 2. Anterosuperior most screw in the left hip projects beyond the cortex of the hip, into the anterior joint space. 3. 4 mm of lucency along the lateral aspect of the posteroinferior most screw in the hip which could suggest some loosening of the screw. Prescriptions: No Action fluticasone propion-salmeterol [Advair HFA] 115-21 mcg/actuation HFA aerosol inhaler 2 puff inhalation Q12H 30 Days Qty: 12 11RF budesonide-formoterol 160-4.5 mcg/actuation HFA aerosol inhaler 2 puff inhalation BID 30 Days Qty: 10.2 11RF ondansetron 4 mg tablet,disintegrating 4 mg PO Q8H PRN (Reason: nausea and vomiting) Qty: 4 0RF carvedilol 25 mg Tablet 25 mg PO BID Rx Instructions: must administer with a meal/food acetaminophen 325 mg Tablet 650 mg PO Q6H PRN (Reason: Fever) insulin lispro 200 unit/mL (3 mL) Insulin Pen 2 - 10 sliding scale dose SUBCUT TID Rx Instructions: if 150-199 = 2 units, 200-249 = 4 units, 250-299 = 6 units, 300-349 = 8 units, 350-399 = 10 units, 400+ call prednisone 10 mg tablet 10 mg PO BID Print Language: Bahraini
[2025-02-07 17:17] LABS: Hematocrit 34.9 % (37.0-47.0); Hemoglobin 10.3 g/dl (12.0-16.0); Imm Gran Abs Auto 0.03 X10*3/uL (0.00-0.03); Imm Gran Pct Auto 0.5 % (0.0-0.4); Lymphocytes Absolute Auto 0.7 X10*3/uL (1.2-4.9); MANUAL DIFF FLAG NO; Mean Corpuscular HGB Conc 29.5 g/dl (31.0-35.0); Mean Corpuscular Hemoglobin 26.0 pg (27.0-33.0); Mean Corpuscular Volume 88.1 fL (80.0-98.0); NRBC Abs Auto 0.020 X10*3/uL (0.0-0.012); NRBC Pct Auto 0.3 /100WBC (0.0-0.2); Platelet Count 200 X10*3/uL (160-400); Red Blood Count 3.96 X10*6/uL (4.20-5.50); White Blood Count 5.8 X10*3/uL (4.8-10.8)
[2025-02-07 17:38] LABS: Alanine Aminotransferase 8 U/L (0-31); Albumin Level 3.8 g/dL (3.5-5.0); Alkaline Phosphatase 153 U/L (39-117); Anion Gap 17 (12-20); Aspartate Amino Transferase 24 U/L (5-31); Blood Urea Nitrogen 16 mg/dL (9-16); Calcium 8.8 mg/dL (8.4-10.2); Carbon Dioxide 26 mmol/L (22-29); Chloride 98 mmol/L (96-108); Creatinine Clr Calc Pharmacy 16.4; Estimated Glomerular Filt Rate 12; Potassium 3.9 mmol/L (3.3-5.1); Sodium 137 mmol/L (135-145); Total Protein 8.6 g/dL (6.5-8.0)
[2025-02-07 20:27] VITALS: BP 176/75; PULSE 66; RESP 18; TEMP 36.6; O2SAT 100
--- OUTSIDE RECORDS SUMMARY | 2025-02-07 21:05 | XMS_ITS | Patient Health Record ---
Author Organization [facility] Address [address] [place] [address] Care Team Providers Care Bike Mechanic Name Role Phone FiorellasylwiaMiryam Unavailable [phone] Reason For Referral No Information Encounters Encounter Location Date Provider Diagnosis [facility] [address] [place] [address] 04/22/2024 Miryam Tyson [facility] [address] [place] [address] 06/17/2024 Miryam Tyson Plan Of Treatment No Information Insurance Providers Payer Name Payer Address Payer Phone Subscriber Number Group Number Insured Name Patient Relationship to Insured Coverage Start Date Coverage End Date Medicare National [facility] [address] [place] [address] [id number] Alix Sharp Self - patient is the insured for Life [address] [phone] [id number] Alix Sharp Self - patient is the insured
--- OUTSIDE RECORDS SUMMARY | 2025-02-07 21:05 | XMS_ITS | Encounter Summary ---
Author Organization [employer] Address [address] [facility] [address] [place] [address] Care Team Providers Care Special Needs Tutor Name Role Phone Damari Marita Primary Care Provider + [phone] Reason for Visit * Reason Comments Med Change Request Encounter Details Date Type Department Care Team ([facility] st Contact Info) Description 12/08/2024 Refill [facility] [address] [place] [address] Cherry Landa MD [address] [place] [address] Type 2 diabetes mellitus with stage 3b chronic kidney disease, with long-term current use of insulin ([facility]) Social History Tobacco Use Types Packs/Day [...] AM EDT Medication Management [facility] [address] [place], [place] [phone] Carmen Becker PharmD [address] [place], [place] [phone] documented as of this encounter Goals Goal [...] as of this encounter Care Teams Special Needs Tutor Relationship Specialty Start Date End Date Marita Wetzel DO [address] [place], [place] [phone] PCP - General Family Medicine 04/21/18 [facility] 05/22/24 documented as of this encounter
--- OUTSIDE RECORDS SUMMARY | 2025-02-07 21:05 | XMS_ITS | Encounter Summary ---
Author Organization [facility] Address [address] [place] [address] Phone Care Team Providers Care Software Tools Engineer Name Role Phone Marita Wetzel DO Primary Care Provider Unava ilable Encounter Details Date Type Department Care Team (Late st Contact Info) Description 03/18/2023 Documentation Only [facility] [address] [place] [phone] Bernardo Doty MD [address] [place] [address] [place] [phone] Social History Tobacco Use Types Packs/Day Years [...] Care Team (Late st Contact Info) Description 02/22/2025 9:30 AM EST Clinical Support [facility] [address] [place] [phone] 07/12/2025 1:00 PM EDT Scheduled Only [facility] [address] [place] [phone] documented as of this encounter Visit Diagnoses Not on filedocumented in this encounter Care Teams Software Tools Engineer Relationship Specialty Start Date End Date Marita Wetzel DO [address] [place] [address] PCP - General Family Medicine 11/14/22 documented as of this encounter
--- OUTSIDE RECORDS SUMMARY | 2025-02-07 21:05 | XMS_ITS | Encounter Summary ---
Author Organization [facility] Address [address] [place] [address] Phone Care Team Providers Care Docket Clerk Name Role Phone Marita Wetzel DO Primary Care Provider Unava ilable Encounter Details Date Type Department Care Team (Late st Contact Info) Description 05/01/2023 Documentation Only [facility] [address] [place] [phone] [place], [place] [address] [place] [phone] Social History Tobacco Use Types Packs/Day Years [...] [facility] [address] [place] [phone] 07/12/2025 1:00 PM EDT Scheduled Only [facility] [address] [place] [phone] Scheduled Orders Name Type Priority Associated Diagnoses [...] Primary documented in this encounter Care Teams Docket Clerk Relationship Specialty Start Date End Date Marita Wetzel DO [address] [place] [address] PCP - General Family Medicine 11/14/22 documented as of this encounter
--- OUTSIDE RECORDS SUMMARY | 2025-02-07 21:05 | XMS_ITS | Encounter Summary ---
Author Organization [employer] Address [address] [place] [address] [address] [place] [address] Care Team Providers Care Outside Sales Account Executive Name Role Phone Mary JaneMarita yousif Primary Care Provider [phone] Carmen Becker PharmD Unavailable [phone] Encounter Details Date Type Department Care Team (Late st Contact Info) Description 12/11/2022 Orders Only [facility] [address] [place] [address] Heather Nesbitt, RN [address] [place] [address] Social History Tobacco Use Types Packs/Day Years [...] Description 02/17/2025 10:00 AM EDT Medication Management [facility] [address] [place] [address] PuiaJonathonCarmen, PharmD [address] [place] [address] documented as of this encounter Visit Diagnoses Not on filedocumented in this encounter Additional Health Concerns Assessment Noted Time PHQ-9 Depression Total Score: 0 10/09/19 23 9:31 AM EDT documented as of this encounter Care Teams Outside Sales Account Executive Relationship Specialty Start Date End Date Marita Wetzel DO [address] [place] [address] PCP - General Family Medicine 04/21/18 Carmen Becker PharmD [address] [place] [address] Pharmacist Internal Medicine 07/21/23 01/21/24 [facility] 05/22/24 documented as of this encounter
--- OUTSIDE RECORDS SUMMARY | 2025-02-07 21:05 | XMS_ITS | Encounter Summary ---
Author Organization [employer] Address [address] [facility] 7t [place] [address] Care Team Providers Care Wire Puller Name Role Phone DamariMarita Primary Care Provider + [phone] Encounter Details Date Type Department Care Team ([facility] st Contact Info) Description 12/08/2024 Orders Only [facility] [address] [place] [address] Cherry Landa MD [address] [place] [address] Social History Tobacco Use Types Packs/Day Years [...] Description 02/17/2025 10:00 AM EDT Medication Management [facility] [address] [place], [place] [phone] Carmen Becker PharmD [address] [place] [address] documented as of this encounter Goals Goal [...] documented as of this encounter Care Teams Wire Puller Relationship Specialty Start Date End Date Marita Wetzel DO [address] [place] [address] PCP - General Family Medicine 04/21/18 [facility] 05/22/24 documented as of this encounter
--- OUTSIDE RECORDS SUMMARY | 2025-02-07 21:05 | XMS_ITS | Encounter Summary ---
Author Organization [facility] Address [address] [place] [address] Phone Care Team Providers Care Manager Custom Name Role Phone Marita Wetzel DO Primary Care Provider Unava ilable Encounter Details Date Type Department Care Team (Late st Contact Info) Description 05/20/2023 Documentation Only [facility] [address] [place] [phone] [place], [place], [place] [address] [place] [phone] Social History Tobacco Use Types Packs/Day Years [...] And Transplant Services Of [facility] - Vascular Access Center [address] [place] [phone] 07/12/2025 1:00 PM EDT Scheduled Only [facility] Vascular Access Center [address] [place] [phone] documented as of this encounter Visit Diagnoses Not on filedocumented in this encounter Care Teams Manager Custom Relationship Specialty Start Date End Date Marita Wetzel DO [address] [place] [address] PCP - General Family Medicine 11/14/22 documented as of this encounter
--- OUTSIDE RECORDS SUMMARY | 2025-02-07 21:05 | XMS_ITS | Encounter Summary ---
Author Organization [facility], Address [address] [place] [address] Phone Care Team Providers Care Chief Operator Synthesis Name Role Phone Marita Wetzel DO Primary Care Provider Unava ilable Encounter Details Date Type Department Care Team (Late st Contact Info) Description 01/31/2025 Treatment [facility], [address] [place] [address] Jeanne Bailey MD [address] [place] [address] [place] [phone] End stage renal disease; Dependence on renal [...] Dialysis Note - Jeanne Bailey MD - 01/31/2025 12:00 AM EDT BASIC NOTE Patient: Alix Sharp : 1960 [facility] Note Author: JEANNE BAILEY MD Service Date: 01/31/2025 This patient was personally seen [id number] for a basic visit as part of routine monthly dialysis care for end stage renal disease. Attending Chainstitch Tunnel Elastic Operator: JEANNE BAILEY Dialysis Location: [facility] Schedule: Shift: 3 OVERVIEW Patient is stable. COMMENTS: 11/01 Kt/V suboptimal increase time to 3 hours and 30 minutes. HOME MEDICATIONS [facility] Medications carvedilol 25 mg [...] times a day. [Take with meals] [facility] Allergies Allergen: codeine Reaction: Unknown Allergen: oxycodone Reaction: Unknown DIALYSIS PRESCRIPTION Treatment Data Treatment Date: 01/31/2025 started at: 11:41 AM Dialysate / Machine Temp (prescribed): 36.0*C Dialysate / Machine Temp (actual): 35.7*C BFR (prescribed): 450 BFR (average delivered): 450 DFR (prescribed): Manual 800 DFR (average delivered): 800 Prescribed Time: 03:30 Actual Time: 03:36 EDW (kg): 66.1 Dialyzer: FX CorAL 80 Dialysate: 2.0 K, 2.5 Ca, 1.0 Mg, 100 Dextrose (GG4540) Sodium: 137 Bicarb: 35 Pre Dialysis Vitals Pre BP Sit: 159/71 Pre Wt (kg): 68.9 EDW Deviation (kg): 2.8 Temp: 96.8*F Post Dialysis Vitals Post BP Sit: 171/83 Post Wt (kg): 66.2 TREATMENT MEDICATIONS ORDERS Mircera 200 mcg IVP Every 2 weeks During Dialysis 01/05/2025 - 01/04/2026 Vitamin D (Calcitriol) Oral 0.25 mcg ORAL 3X Week 10/11/2024 - 10/10/2025 BP AND FLUID ASSESSMENT Post BP Sit 171/83 - 01/31/2025 154/81 - 01/28/2025 158/75 - 01/26/2025 Post Wt (kg) 66.2 - 01/31/2025 66.0 - 01/28/2025 65.9 - 01/26/2025 EDW (kg) 66.1 - 01/31/2025 66.1 - 01/28/2025 66.1 - 01/26/2025 Deviation (kg) 0.1 - 01/31/2025 -0.1 - 01/28/2025 -0.2 - 01/26/2025 ADEQUACY ASSESSMENT spKt/V (Daugirdas II) 1.62 (01/21/25) 1.58 (12/22/24) 1.69 (12/13/24) eKdrt/V 1.39 (01/21/25) 1.35 (12/22/24) 1.43 (12/13/24) % Urea Reduction 73 (12/22/24) 75 (12/13/24) [...] 4.8 12/10/24 4.0 12/08/24 4.6 11/05/24 eNPCR 0.94 01/21/25 0.73 12/22/24 0.95 12/13/24 Hemoglobin A1C 6.1 10/06/24 5.7 07/07/24 5.8 04/23/24 ADDITIONAL LABS WBC 3.70 (10/06/24) 3.84 (07/07/24) 9.46 (04/23/24) Hepatitis B Surface Ab 443 (10/06/24) 632 (04/23/24) 1,682.0 (04/20/24) ADDITIONAL COMMENT COMMENTS: 01/24/25 Patient is stable Medications reviewed Physical Exam [...] reviewed. Dietary adjustments made in conjunction with folder operator. 7.Transplant: The patient is being evaluated for a kidney transplant 12/27/2024 Patient is stable Medications reviewed Physical [...] reviewed. Dietary adjustments made in conjunction with folder operator. 7.Transplant: The patient is being evaluated [...] reviewed. Dietary adjustments made in conjunction with folder operator. 7.Transplant: The patient is being evaluated [...] reviewed. Dietary adjustments made in conjunction with folder operator. 7.Transplant: The patient is being evaluated [...] reviewed. Dietary adjustments made in conjunction with folder operator. 7.Transplant: The patient is being evaluated [...] reviewed. Dietary adjustments made in conjunction with folder operator. 7.Transplant: Not a candidate. 07/21/24 Patient [...] reviewed. Dietary adjustments made in conjunction with folder operator. 7.Transplant: not a candidate. 06/21/24 Patient is stable, recently cd from [facility] after episode of pneumonia Medications reviewed [...] reviewed. Dietary adjustments made in conjunction with folder operator. Transplant: Not a candidate. 05/24/24 Patient [...] reviewed. Dietary adjustments made in conjunction with folder operator. 7.Transplant: Not a candidate. decreasing tacrolimus [...] reviewed. Dietary adjustments made in conjunction with folder operator. Transplant: The patient will be re-evaluated for a kidney transplant. Signed by: JEANNE BAILEY MD on 02/01/2025 at 11:54:43 AM Transcribed by: JEANNE BAILEY MD on 02/01/2025 at 11:54:43 AM documented in this encounter Plan of Treatment Upcoming Encounters Date Type Department Care Team (Late st Contact Info) Description 02/22/2025 9:30 AM EST Clinical Support [facility] Vascular Access Center [address] [place] [address] 07/12/2025 1:00 PM EDT Scheduled Only [facility] Vascular Access Center [address] [place] [address] documented as of this encounter Visit Diagnoses Diagnosis End stage renal disease Dependence on renal dialysis documented in this encounter Care Teams Chief Operator Synthesis Relationship Specialty Start Date End Date Marita Wetzel DO [address] [place] [address] PCP - General Family Medicine 11/14/22 documented as of this encounter
--- OUTSIDE RECORDS SUMMARY | 2025-02-07 21:05 | XMS_ITS | Encounter Summary ---
Author Organization [facility] Address [address] [place] [address] Phone Care Team Providers Care Inspector Tester Sorter Name Role Phone Marita Wetzel DO Primary Care Provider Unava ilable Encounter Details Date Type Department Care Team (Late st Contact Info) Description 12/31/2022 Documentation Only [facility] Of [address] [place] [phone] Candace Adam PA [address] [place] [address] [place] [phone] Social History Tobacco Use Types Packs/Day Years [...] Transplant Services Of [facility] Vascular Access [address] [place] [phone] 07/12/2025 1:00 PM EDT Scheduled Only [facility] Vascular Access [address] [place] [phone] documented as of this encounter Visit Diagnoses Not on filedocumented in this encounter Care Teams Inspector Tester Sorter Relationship Specialty Start Date End Date Marita Wetzel DO [address] [place] [address] PCP - General Family Medicine 11/14/22 documented as of this encounter
--- OUTSIDE RECORDS SUMMARY | 2025-02-07 21:05 | XMS_ITS | Encounter Summary ---
Author Organization [facility] [place], Address [address] [place] [address] Phone Care Team Providers Care Coremaker Name Role Phone Marita Wetzel DO Primary Care Provider Unava ilable Reason for Visit * Reason Comments Med Refill Encounter Details Date Type Department Care Team (Late Contact Info) Description 12/06/2020 Refill [facility] [place] [address] [place] [phone] Bernardo Doty MD [address] [facility] [place] [phone] Social History Tobacco Use Types Packs/Day Years [...] Department Care Team (Late Contact Info) Description 02/22/2025 9:30 AM EST Clinical Support [facility] Vascular Access Center [address] [place] [phone] 07/12/2025 1:00 PM EDT Scheduled Only [facility] Vascular Access Center [address] [place] [address] documented as of this encounter Visit Diagnoses Not on filedocumented in this encounter Care Teams Coremaker Relationship Specialty Start Date End Date Marita Wetzel DO [address] [place] [address] PCP - General Family Medicine 11/14/22 documented as of this encounter
--- OUTSIDE RECORDS SUMMARY | 2025-02-07 21:05 | XMS_ITS | Encounter Summary ---
Author Organization [facility] Address [place] [address] [place] [address] Phone Care Team Providers Care Title Processor Name Role Phone Fouzia Wetzelfer Primary Care Provider Unava ilable Encounter Details Date Type Department Care Team (Late st Contact Info) Description 03/18/2023 Documentation Only [facility] [address] [place] [phone] Srinivas Agrawal MD [address] [place] [address] Dr[place] [phone] Social History Tobacco Use Types Packs/Day Years [...] [facility] Vascular Access Center [address] [place] [address] [place] [address] 07/12/2025 1:00 PM EDT Scheduled Only [facility] Vascular Access [address] [place] [address] documented as of this encounter Visit Diagnoses Not on filedocumented in this encounter Care Teams Title Processor Relationship Specialty Start Date End Date Marita Wetzel DO [address] [place] [address] PCP - General Family Medicine 11/14/22 documented as of this encounter
--- OUTSIDE RECORDS SUMMARY | 2025-02-07 21:05 | XMS_ITS | Encounter Summary ---
Author Organization [facility] Address [address] [place] [address] Phone Care Team Providers Care Gardening Instructor Name Role Phone Marita Wetzel DO Primary Care Provider Unava ilable Encounter Details Date Type Department Care Team (Late st Contact Info) Description 04/18/2023 Documentation Only [facility] [address] [place] [phone] Jerod Adames DO [address] [place] [address] [place] [phone] Social History Tobacco Use Types Packs/Day Years [...] Care And Transplant Services [facility] - Vascular Access Center [address] [place] [address] 07/12/2025 1:00 PM EDT Scheduled Only [facility] Vascular Access Center [address] [place] [phone] documented as of this encounter Visit Diagnoses Not on filedocumented in this encounter Care Teams Gardening Instructor Relationship Specialty Start Date End Date Marita Wetzel DO [address] [place] [address] PCP - General Family Medicine 11/14/22 documented as of this encounter
--- OUTSIDE RECORDS SUMMARY | 2025-02-07 21:05 | XMS_ITS | Encounter Summary ---
Author Organization [employer] Address [address] [place] [address] Care Team Providers Care Dipper Machine Operator Name Role Phone Marita Wetzel DO Primary Care Provider Carmen Becker PharmD Unavailable [phone] Encounter Details Date Type Department Care Team ([facility] Contact Info) Description 10/14/2022 Abstract [facility] [address] [place] [address] Marita Wetzel DO [address] [place] [address] Social History Tobacco Use Types Packs/Day Years [...] Upcoming Encounters Date Type Department Care Team ([facility] Contact Info) Description 02/17/2025 10:00 AM EDT Medication Management [facility] [address] [place] [address] Carmen Becker PharmD [address] [place] [address] documented as of this encounter Visit Diagnoses Not on filedocumented in this encounter Additional Health Concerns Assessment Noted Time PHQ-9 Depression Total Score: 0 10/09/19 23 9:31 AM EDT documented as of this encounter Care Teams Dipper Machine Operator Relationship Specialty Start Date End Date Marita Wetzel DO [address] [place], [place] [phone] PCP - General Family Medicine 04/21/18 Carmen Becker PharmD [address] [place] [address] Pharmacist Internal Medicine 07/21/23 01/21/24 [facility] 05/22/24 documented as of this encounter
--- OUTSIDE RECORDS SUMMARY | 2025-02-07 21:05 | XMS_ITS | Clinical Summary ---
Author Organization [facility] Address [address] [facility] [facility] [address] [place] [address] Phone Care Team Providers Care Test Data Developer Name Role Phone Bernardo Doty MD Unavailable Marita Wetzel DO Primary Care Provider [phone] Allergies Active Allergy Reactions Criticality Noted Date [...] mg by mouth daily. 08/26/2021 Active cloNIDine (NIYXZEVF-LRI-3 ) 0.2 mg/[address] 1 patch [...] EST) SODIUM 135 133 - 146 mmol/L [facility] POTASSIUM 5.9(H) 3.3 - 5.1 mmol/L [facility] CHLORIDE 96 96 - 108 mmol/L [facility] CO2 27 21 - 35 mmol/L [facility] BUN 45(H) 6 - 19 mg/dL [facility] CREATININE 3.40(H) 0.5 - 1.5 mg/dL [facility] GLUCOSE 186(H) 70 - 99 mg/dL [facility] ALBUMIN 2.6(L) 3.9 - 4.8 g/dL [facility] TOTAL PROTEIN 6.2(L) 6.5 - 8.0 g/dL [facility] CALCIUM 9.0 8.4 - 10.3 mg/dL [facility] ALKALINE PHOSPHATASE 74 39 - 117 U/L [facility] TOTAL BILIRUBIN <0.2 0.0 - 1.2 mg/dL [facility] AST 9 0 - 37 U/L [facility] ALT 7 0 - 40 U/L [facility] GLOBULIN 3.6 1 - 4.8 g/dL [facility] EGFR 15(L) >59 mL/min/1.7 3m2 [facility] Comment:Estimated glomerular filtration rate calculated using the CKD-EPI refit equation. ANION GAP 18 10 - 20 mmol/L [facility] Blood 05/03/2024 3:27 PM EST 05/03/2024 8:39 PM EST us Twila CRUZ LAB BLOOD ORDERABLES Final Resu lt [address] [address] * Hepatitis C antibody, qualitative (11/26/2021 4:32 PM EDT) HCV Nonreactive Nonreactive [facility] Comment: 11/26/2021 4:32 PM EDT 11/26/2021 5:00 PM EDT us Manny Addison MD, PhD LAB BLOOD ORDERABLES Final Result [address] [address] * (ABNORMAL) Hemoglobin A1c (11/26/2021 4:32 PM EDT) HEMOGLOBIN A1C 7.8(H) 4.2 - 5.6 % [facility] Comment: HbA1c levels [...] ORDERABLES Final Result Performing Organization Address [facility] de Phone Number [address] [address] * (ABNORMAL) Lipid panel (11/26/2021 4:32 PM EDT) CHOLESTEROL 157 <200 mg/dL [facility] TRIGLYCERIDES 214(H) 35 - 150 mg/dL [facility] HDL 26(L) 40 - 80 mg/dL [facility] CALCULATED LDL 88 50 - 129 mg/dL [facility] VLDL 43(H) <31 mg/dL [facility] CARDIAC RISK RATIO 6.0(H) 0.0 - 4.0 [facility] 11/26/2021 4:32 PM EDT 11/26/2021 5:00 PM EDT Manny Addison MD, PhD LAB BLOOD ORDERABLES Final Result Performing Organization Address [facility] Co de Phone Number [address] [place] [address] from Last 3 Months or Most Recently Relevant to Health Maintenance Insurance MEDICARE PART A & B [employer] MEDICARE SUPPLEMENT MEDICARE PART A & B [employer] MEDICARE SUPPLEMENT MEDICARE PART A & B [facility] MEDICARE SUPPLEMENT MEDICARE PART A & B [employer] MEDICARE SUPPLEMENT MEDICARE PART A & B [employer] MEDICARE SUPPLEMENT MEDICARE PART A & B [employer] MEDICARE SUPPLEMENT MEDICARE PART A & B Care Teams Test Data Developer Relationship Specialty Start Date End Date DamariMarita [address] [place] [address] PCP - General Family Medicine 03/28/22 Bernardo Doty MD [address] [address] Nephrology 11/13/21 Additional Source Comments The information contained in this document represents components of the legal health record. It is not the complete legal health record.[facility]
--- OUTSIDE RECORDS SUMMARY | 2025-02-07 21:05 | XMS_ITS | Encounter Summary ---
Author Organization [employer] Address [address] [facility] [address] [place] [address] Care Team Providers Care Preschool Teacher Name Role Phone Marita Wetzel DO Primary Care Provider [phone] Reason for Visit * Reason Onset Date Comments Med Refill 06/25/2024 Encounter Details Date Type Department Care Team (Late st Contact Info) Description 06/25/2024 Telephone [facility] [address] [place] [address] Marita Wetzel DO [address] [place], [place] [phone] Med Refill Social History Tobacco Use Types [...] 1 g tablet To be sent to: [facility]/pharmacy [address] [place] [address] *states it was prescribed before documented in this encounter Plan of Treatment Upcoming Encounters Date Type Department Care Team (Late st Contact Info) Description 02/17/2025 10:00 AM EDT Medication Management [facility] [address] [place] [address] Carmen Becker, PharmD [address] [place] [address] documented as of this encounter Goals Goal [...] documented as of this encounter Care Teams Preschool Teacher Relationship Specialty Start Date End Date Marita Wetzel DO [address] [place] [address] PCP - General Family Medicine 04/21/18 [facility] 05/22/24 documented as of this encounter
--- OUTSIDE RECORDS SUMMARY | 2025-02-07 21:05 | XMS_ITS | Encounter Summary ---
Author Organization [facility] [place], Address [address] [place] [address] Phone Care Team Providers Care Lumber Sales Supervisor Name Role Phone Marita Wetzel DO Primary Care Provider Unava ilable Encounter Details Date Type Department Care Team (Late st Contact Info) Description 04/02/2023 Documentation Only [facility] [place] [phone] Bernardo Doty MD [address] [facility] [address] [place] [phone] Social History Tobacco Use Types Packs/Day Years [...] Services Of [facility] Vascular Access Center [address] [place] [address] [place] [address] 07/12/2025 1:00 PM EDT Scheduled Only [facility] Vascular Access [place] [address] [place] [phone] documented as of this encounter Visit Diagnoses Not on filedocumented in this encounter Care Teams Lumber Sales Supervisor Relationship Specialty Start Date End Date Marita Wetzel DO [address] [place] [address] PCP - General Family Medicine 11/14/22 documented as of this encounter
--- OUTSIDE RECORDS SUMMARY | 2025-02-07 21:05 | XMS_ITS | Encounter Summary ---
Author Organization [employer] Address [address] [facility] 7t [place] [address] Care Team Providers Care Director Of Partnerships Name Role Phone Marita Wetzel DO Primary Care Provider [phone] Carmen Becker PharmD Unavailable [phone] Encounter Details Date Type Department Care Team ([facility] st Contact Info) Description 04/29/2023 Telephone [facility] [address] [place] [address] Marita Wetzel DO [address] [place], [place] [phone] Social History Tobacco Use Types Packs/Day Years [...] Description 02/17/2025 10:00 AM EDT Medication Management [facility] [address] [place] [address] Carmen Becker PharmD [address] [place] [address] documented as of this encounter Visit Diagnoses Not on filedocumented in this encounter Additional Health Concerns Assessment Noted Time PHQ-9 Depression Total Score: 0 10/09/19 23 9:31 AM EDT documented as of this encounter Care Teams Director Of Partnerships Relationship Specialty Start Date End Date Marita Wetzel DO [address] [place] [address] PCP - General Family Medicine 04/21/18 Carmen Becker PharmD [address] [place] [address] Pharmacist Internal Medicine 07/21/23 01/21/24 [facility] 05/22/24 documented as of this encounter
--- OUTSIDE RECORDS SUMMARY | 2025-02-07 21:05 | XMS_ITS | Encounter Summary ---
Author Organization [employer] Address [address] [facility] 7t [place] [address] Care Team Providers Care Footwear Sales Leader Name Role Phone Marita Wetzel DO Primary Care Provider [phone] Carmen Becker PharmD Unavailable [phone] Reason for Visit * Reason Onset Date Comments Prior Authorization 04/25/2023 [employer] Encounter Details Date Type Department Care Team (Late st Contact Info) Description 04/25/2023 Telephone [facility] [address] [place] [address] Marita Wetzel DO [address] [place] [address] Prior Authorization ([employer]) Social History Tobacco [...] Description 02/17/2025 10:00 AM EDT Medication Management [facility] [address] [place], [place] [phone] Carmen Becker, PharmD [address] [place] [address] documented as of this encounter Visit Diagnoses Not on filedocumented in this encounter Additional Health Concerns Assessment Noted Time PHQ-9 Depression Total Score: 0 10/09/19 23 9:31 AM EDT documented as of this encounter Care Teams Footwear Sales Leader Relationship Specialty Start Date End Date Marita Wetzel DO [address] [place] [address] PCP - General Family Medicine 04/21/18 Carmen Becker PharmD [address] [place] [address] Pharmacist Internal Medicine 07/21/23 01/21/24 [facility] 05/22/24 documented as of this encounter
--- OUTSIDE RECORDS SUMMARY | 2025-02-07 21:06 | XMS_ITS | Encounter Summary ---
Author Organization [facility] Address [place] [place] [address] Phone Care Team Providers Care Blocker Hand Name Role Phone Fouzia Wetzelfer Primary Care Provider Unava ilable Encounter Details Date Type Department Care Team (Late st Contact Info) Description 10/03/2023 Documentation Only [facility] [address] [place] [phone] Srinivas Agrawal MD [address] [place] [address] [place] [phone] Social History Tobacco Use Types Packs/Day Years [...] Of [facility] [address] [place] [address] [place] [address] 07/12/2025 1:00 PM EDT Scheduled Only [facility] [address] [place] [phone] documented as of this encounter Visit Diagnoses Not on filedocumented in this encounter Care Teams Blocker Hand Relationship Specialty Start Date End Date Marita Wetzel DO [address] [place] [address] PCP - General Family Medicine 11/14/22 documented as of this encounter
--- OUTSIDE RECORDS SUMMARY | 2025-02-07 21:06 | XMS_ITS | Encounter Summary ---
Author Organization [facility] [place], Address [address] [place] [address] Phone Care Team Providers Care Legal Librarian Name Role Phone Marita Wetzel DO Primary Care Provider Unava ilable Reason for Visit * Reason Comments Med Refill Encounter Details Date Type Department Care Team (Late Contact Info) Description 05/08/2021 Refill [facility] [address] [place] [phone] Bernardo Doty MD [address] [place] [phone] Social History Tobacco Use Types Packs/Day Years [...] Support [facility] [address] [place] [phone] 07/12/2025 1:00 PM EDT Scheduled Only [facility] [address] [place] [address] documented as of this encounter Visit Diagnoses Not on filedocumented in this encounter Care Teams Legal Librarian Relationship Specialty Start Date End Date Marita Wetzel DO [address] [place] [address] PCP - General Family Medicine 11/14/22 documented as of this encounter
--- OUTSIDE RECORDS SUMMARY | 2025-02-07 21:06 | XMS_ITS | Encounter Summary ---
Author Organization [facility] Address [address] [place] [address] Phone Care Team Providers Care Electrical Maintenance Engineer Name Role Phone Marita Wetzel DO Primary Care Provider Unava ilable Encounter Details Date Type Department Care Team (Late st Contact Info) Description 10/24/2023 Documentation Only [facility] [address] [place] [phone] [address], [place], [place] [address] [place] [phone] Social History Tobacco Use Types Packs/Day Years [...] [facility] - [facility] [address] [place] [phone] 07/12/2025 1:00 PM EDT Scheduled Only [facility] [address] [facility] [place] [phone] documented as of this encounter Visit Diagnoses Not on filedocumented in this encounter Care Teams Electrical Maintenance Engineer Relationship Specialty Start Date End Date Marita Wetzel DO [address] [place] [address] PCP - General Family Medicine 11/14/22 documented as of this encounter
--- OUTSIDE RECORDS SUMMARY | 2025-02-07 21:06 | XMS_ITS | Encounter Summary ---
Author Organization [facility] Address [address] [place] [address] Phone Care Team Providers Care Share Holder Name Role Phone Marita Wetzel DO Primary Care Provider Unava ilable Encounter Details Date Type Department Care Team (Late st Contact Info) Description 12/09/2022 Documentation Only [facility] [address] [place] [phone] Candace Adam PA [address] [place] [address] [place] [phone] Social History Tobacco Use Types Packs/Day Years [...] Support [facility] Access [address] [place] [phone] 07/12/2025 1:00 PM EDT Scheduled Only [facility] [address] [place] [phone] documented as of this encounter Visit Diagnoses Not on filedocumented in this encounter Care Teams Share Holder Relationship Specialty Start Date End Date Marita Wetzel DO [address] [place] [address] PCP - General Family Medicine 11/14/22 documented as of this encounter
--- OUTSIDE RECORDS SUMMARY | 2025-02-07 21:06 | XMS_ITS | Encounter Summary ---
Author Organization [facility] Address [address] [place] [address] Phone Care Team Providers Care Crematory Operator Name Role Phone Marita Wetzel DO Primary Care Provider Unava ilable Encounter Details Date Type Department Care Team (Late st Contact Info) Description 01/01/2024 Documentation Only [facility] [address] [place] [phone] [address], [place], [place] [address] [place] [phone] Social History Tobacco Use Types Packs/Day Years [...] Support [facility] [address] [place] [phone] 07/12/2025 1:00 PM EDT Scheduled Only [facility] [place] [address] [place] [address] documented as of this encounter Visit Diagnoses Not on filedocumented in this encounter Care Teams Crematory Operator Relationship Specialty Start Date End Date Marita Wetzel DO [address] [place] [address] PCP - General Family Medicine 11/14/22 documented as of this encounter
--- OUTSIDE RECORDS SUMMARY | 2025-02-07 21:06 | XMS_ITS | Clinical Summary ---
Author Organization [employer] Address [address] [place] [address] 7 [place] [address] Care Team Providers Care Ball Assembler Name Role Phone Damari Marita Primary Care Provider + [phone] Allergies Active Allergy Reactions Criticality Noted Date Comments Codeine Hives High 11/12/2011 Other reaction(s): FAINTING/HIVES Oxycodone 07/30/2022 Oxycodone-Acetaminophen Hives High 10/05/2012 Other reaction(s): Nausea / Vomiting Medications * This document contains information received from the source organization and may not represent a complete record from that organization. Continuous Blood Gluc Arc And Gas Welder (FreeStyle Seema 2 Clare) device 05/07/19 23 Active dorzolamide-ti molol (Cosopt) 22.3-6.8 MG/ML ophthalmic solution Administer 1 drop into both eyes 2 times daily. 07/11/19 23 Active ondansetron (Zofran) 4 MG tablet TAKE 1 TABLET BY MOUTH EVERY 8 HOURS IF NEEDED FOR NAUSEA OR VOMITING. 08/03/19 23 Active Continuous Blood Gluc Sensor (FreeStyle Seema 2 Sensor) misc Use as directed Active Procrit 95131 UNIT/ML injection 12/09/19 24 Active insulin lispro [...] call office 01/22/20 24 Active Continuous Glucose Arc And Gas Welder (FreeStyle Seema 3 Clare) deviceIndicati ons:Type 2 diabetes mellitus with stage [...] Hyperuricemia 07/10/2022 05/01/2023 ESRD on peritoneal dialysis ([facility]) 07/09/2022 07/30/2022 Neutropenia 07/05/2022 07/30/2022 Stage 3 chronic kidney disease ([facility]) 06/24/2022 05/01/2023 Iron deficiency anemia 10/01/201907/30 Sciatica 05/06/2018 05/01/2023 Simple renal cyst 01/30/2015 07/30/2022 Diabetes mellitus due to und erlying condition with stable proliferative diabetic retinopathy, bilateral 05/14/2013 07/30/2022 Overview (07/10/2022): diabetic retinopathy, neuropathy Type 2 diabetes mellitus Kidney problem 05/14/2013 07/30/2022 Overview (07/10/2022): Kidney problem Encounters Date Type Department Care Team Description 02/07/2025 Orders Only GENERIC EXTERNAL DATA DEPARTMENT Provider, Generic External Data 02/01/2025 9:00 AM EDT Office Visit [address] [address] Marita Wetzel DO Type 2 diabetes mellitus with hyperglycemia, with long-term current use of insulin (HCC) (Primary Dx); Essential hypertension; Other hyperlipidemia; Encounter for vaccination; Encounter for immunization; Pancreatic mass 02/01/2025 Travel 01/27/2025 Orders Only GENERIC EXTERNAL DATA DEPARTMENT Provider, Generic External Data 01/27/[address] [address] Marita Wetzel DO Chart Prep 01/25/2025 Patient Outreach [address] [address] Marita Wetzel DO Pre-visit Planning (SDOH screening negative and tobacco screening negative) 01/24/[address] [address] Marita Wetzel DO Appointment Request 01/24/2025 Travel 01/19/2025 Orders Only GENERIC EXTERNAL DATA DEPARTMENT Provider, Generic External Data 12/17/2024 Refill [facility] MED[facility]INE [address] [place] [phone] Marita Wetzel DO 12/16/[address] [address] Marita Wetzel DO Chart Prep 12/09/[address] [address] Faye Batista RN Type 2 diabetes mellitus with stage 3b chronic kidney disease, with long-term current use of insulin (CMS/HCC) 12/08/2024 Orders Only [address] [address] Cherry Landa MD 12/08/2024 Refill [facility] WALK[facility]IN CENTER [address] [place] [phone] Cherry Landa MD Type 2 diabetes mellitus with stage 3b chronic kidney disease, with long-term current use of insulin (CMS/HCC) 12/07/2024 11:20 AM EDT Office Visit [facility] [address] [place] [phone] Cherry Landa MD Essential hypertension (Primary Dx); Type 2 diabetes mellitus with hyperglycemia, with long-term current use of insulin (CMS/HCC); Type 2 diabetes mellitus with stage 3b chronic kidney disease, with long-term current use of insulin (CMS/HCC); Pancreatic lesion; Other ascites 12/07/2024 Refill [facility] [address] [place] [phone] Cherry Landa MD Type 2 diabetes mellitus with stage 3b chronic kidney disease, with long-term current use of insulin (CMS/HCC) 12/07/2024 Travel 12/06/[address] [address] Marita Wetzel DO telephone call 11/27/2024 Orders Only [facility] External Provider, [facility] from Last 3 Months Immunizations Immunization [...] Description 02/17/2025 10:00 AM EDT Medication Management [facility] MEDICINE [address] [place] [address] Carmen [place], PharmD [address] [place] [address] Health Maintenance Due Date Last Done Comments [...] Name Priority Date/Time Associated Diagnosis Comments XR HIP LEFT WITH PELVIS 1 VIEW Routine 02/07/2025 6:43 PM EDT COMPREHENSIVE METABOLIC PANEL Routine 02/07/2025 5:13 PM EDT CBC WITH AUTO DIFFERENTIAL Routine 02/07/2025 5:13 PM EDT MR ABDOMEN W AND WO CONTRAST STAT 02/03/2025 1:40 PM EDT Pancreatic mass POCT GLYCATED HEMOGLOBIN, TOTAL Routine 02/01/2025 9:29 AM EDT Type 2 diabetes mellitus with hyperglycemia, with long-term current use of insulin ([facility]) POCT GLUCOSE Routine 02/01/2025 9:28 AM EDT Type 2 diabetes mellitus with hyperglycemia, with long-term current use of insulin ([facility]) CREATININE, SERUM Routine 01/27/2025 4:2 3 PM EDT UREA NITROGEN (BUN) Routine 01/27/2025 4 :23 PM EDT LIPASE Routine 01/19/2025 1:45 PM EDT COMPREHENSIVE METABOLIC PANEL Routine 01/19/2025 1:45 PM EDT CBC WITH AUTO DIFFERENTIAL Routine 01/19/2025 1:45 PM EDT POCT GLUCOSE Routine 12/07/2024 11:38 AM EDT Type 2 diabetes mellitus with stage 3b chronic kidney disease, with long-term current use of insulin ([facility]) POCT GLYCATED HEMOGLOBIN, TOTAL Routine 12/07/2024 11:38 AM EDT Type 2 diabetes mellitus with stage 3b chronic kidney disease, with long-term current use of insulin ([facility]) CT ABDOMEN PELVIS WO CONTRAST [...] Relevant to Health Maintenance Results * XR Hip left with Pelvis 1 view (02/07/2025 6:43 PM EDT) Only the most recent of2 resultswithin the time period is included. Anatomical Region Laterality Modality Lower Extremities, Hip Bilateral Radiograp hic Imaging 02/07/2025 6:43 PM EDT Narrative 02/07/2025 6:44 PM EDT [place] [address] XRay Report Signed Patient: Alix Sharp MR#: [id number] 43 : 1960 Acct:[id number] Age/Sex: 64 / F ADM Date: 02/07/25 Loc: HO.ED Attending Dr: Ordering Physician: Jerod Simons Date of Service: 02/07/25 Procedure(s): XR hip LT w PEL1V Accession Number(s): [id number] cc: Marita Wetzel DO; Jerod Simons Reason for Exam: pain CLINICAL HISTORY: pain 4 view, pelvis and left hip Comparison: CR - XR HIP LT W PEL1V - 11/27/24 09:38 EDT Findings: There has been previous pinning of the left femoral neck with 3 cannulated screws. No change in alignment of old subcapital hip fracture. There is some lucency around the inferior most screw raising the question of loosening. Extensive arterial vascular calcifications. No new periprosthetic fracture. The most superior screw projects beyond the cortex of the femoral head superiorly, which may be impacting the joint space. The soft tissues are unremarkable. Large hernia mesh artifact over the lower abdomen. No disruption of the pelvic ring. IMPRESSION: 1. No new periprosthetic fracture. 2. There is some lucency around the inferior most left hip screw raising the question of loosening. Superior most screw projects slightly into the joint space at the tip. This document has been electronically signed by: De Ahmadi MD on 02/07/2025 18:43:29 Dictated By: De Ahmadi MD Signed By: <Electronically signed by De Ahmadi MD in OV> 02/07/251843 DD/ 42 TD/TT: 02/07/251842 Claim Investigator: Procedure Note Donotuseinterpreter, Image - 02/07/[address] [address] XRay Report Signed Patient: Alix Sharp BMR#: [id number] 43 : 1960cct:[id number] Age/Sex: 64 / FADM Date: 02/07/25 Loc: HO.ED Attending Dr: Ordering Physician: Jerod Simons Date of Service: 02/07/25 Procedure(s): XR hip LT w PEL1V Accession Number(s): [id number] cc: Marita Wetzel DO; Jerod Simons Reason for Exam: pain CLINICAL HISTORY: pain 4 view, pelvis and left hip Comparison: CR - XR HIP LT W PEL1V - 11/27/24 09:38 EDT Findings: There has been previous pinning of the left femoral neck with 3 cannulated screws. No change in alignment of old subcapital hip fracture. There is some lucency around the inferior most screw raising the question of loosening. Extensive arterial vascular calcifications. No new periprosthetic fracture. The most superior screw projects beyond the cortex of the femoral head superiorly, which may be impacting the joint space. The soft tissues are unremarkable. Large hernia mesh artifact over the lower abdomen. No disruption of the pelvic ring. IMPRESSION: 1. No new periprosthetic fracture. 2. There is some lucency around the inferior most left hip screw raising the question of loosening. Superior most screw projects slightly into the joint space at the tip. This document has been electronically signed by: De Ahmadi MD on 02/07/2025 18:43:29 Dictated By: De Ahmadi MD Signed By: <Electronically signed by De Ahmadi MD in [place]> 02/07/251843 DD/ 42 TD/TT: 02/07/251842 Claim Investigator: [facility] External Provider IMG XR PROCEDURES Edited Result - Final * (ABNORMAL) CBC auto differential (02/07/2025 5:13 PM EDT) Only the most recent of3 resultswithin the time period is included. White Blood Count 5.8 4.8 - 10.8 X10*3/uL [facility] Red Blood Count 3.96(L) 4.20 - 5.50 X10*6/uL [facility] Hemoglobin 10.3(L) 12.0 - 16.0 g/dl [facility] Hematocrit 34.9(L) 37.0 - 47.0 % [facility] Mean Corpuscular Volume 88.1 80.0 - 98.0 fL [facility] Mean Corpuscular Hemoglobin 26.0(L) 27.0 - 33.0 pg [facility] Mean Corpuscular HGB Conc 29.5(L) 31.0 - 35.0 g/dl [facility] Red Cell Distribution Width 18.3(H) 11.0 - 16.0 % [facility] Platelet Count 200 160 - 400 X10*3/uL [facility] Mean Platelet Volume 9.2(L) 9.4 - 12.3 fL [facility] Neutrophils Percent Auto 79.5(H) 45 - 73 % [facility] Imm Gran Pct Auto 0.5(H) 0.0 - 0.4 % [facility] Lymphocytes Percent Auto 11.4(L) 20 - 40 % [facility] Monocytes Percent Auto 7.1 2 - 11 % [facility] Eosinophils Percent Auto 1.2 0 - 4 % [facility] Basophils Percent Auto 0.3 0 - 2 % [facility] NRBC Pct Auto 0.3(H) 0.0 - 0.2 /100WBC [facility] Neutrophils Absolute Auto 4.6 2.0 - 8.3 x10*3/uL [facility] Imm Gran Abs Auto 0.03 0.00 - 0.03 X10*3/uL [facility] Lymphocytes Absolute Auto 0.7(L) 1.2 - 4.9 X10*3/uL [facility] Monocytes Absolute Auto 0.4 0.1 - 1.2 X10*3/uL [facility] Eosinophils Absolute Auto 0.1 0.0 - 0.4 X10*3/uL [facility] Basophils Absolute Auto 0.0 0.0 - 0.2 X10*3/uL [facility] NRBC Abs Auto 0.020(H) 0.0 - 0.012 X10*3/uL [facility] 02/07/2025 5:13 PM EDT 02/07/2025 5:15 PM EDT us Generic External Data Provider LAB BLOOD ORDERAB LES Final Result [facility] [address] [place] [phone] * (ABNORMAL) Comprehensive Metabolic Panel (02/07/2025 5:13 PM EDT) Only the most recent of3 resultswithin the time period is included. Sodium 137 135 - 145 mmol/L [facility] Potassium 3.9 3.3 - 5.1 mmol/L [facility] Chloride 98 96 - 108 mmol/L [facility] Carbon Dioxide 26 22 - 29 mmol/L [facility] Anion Gap 17 12 - 20 [facility] Urea Nitrogen (BUN) 16 9 - 16 mg/dL [facility] Creatinine, Serum 3.66(H) 0.5 - 1.4 mg/dL [facility] Creatinine Clr Calc Pharmacy 16.4 [facility] Comment:Provided height and weight: 170.18 cm,75 kg.eGFR (calculated from the MDRD study equation) and eCrCl(calculated from the Cockcroft-Gault equation) are based ondifferent parameters and may not yield comparable results.If eCrCl result is absurd, please check patient'sheight/weight. Estimated Glomerular Filt Rate 12 [facility] Comment:Chronic Kidney Disea se: Estimated GFR < 60 mL/min/1.72k4Pwbjew Kidney Disease: Estimated GFR < 15 mL/min/1.73m2 Glucose 161(H) 60 - 115 mg/dL [facility] Calcium 8.8 8.4 - 10.2 mg/dL [facility] Bilirubin, Total 0.5 0.0 - 1.0 mg/dL [facility] Aspartate Amino Transferase 24 5 - 31 U/L [facility] Alanine Aminotransferase 8 0 - 31 U/L [facility] Total Protein 8.6(H) 6.5 - 8.0 g/dL [facility] Albumin Level 3.8 3.5 - 5.0 g/dL [facility] Alkaline Phosphatase 153(H) 39 - 117 U/L [facility] 02/07/2025 5:13 PM EDT 02/07/2025 5:15 PM EDT us Generic External Data Provider LAB BLOOD ORDERAB LES Final Result [facility] [address] [place] [phone] * MR Abdomen w/ and w/o Contrast (02/03/2025 1:40 PM EDT) Anatomical Region Laterality Modality Abdomen Magnetic Resonan ce 02/03/2025 1:40 PM EDT Narrative 02/03/2025 4:19 PM EDT [address] [address] Magnetic Resonance Report Signed Patient: Alix Sharp MR#: [id number] 43 : 1960 Acct:[id number] Age/Sex: 64 / F ADM Date: 02/03/25 Loc: HO.MRI Attending Dr: Marita Wetzel DO Ordering Physician: Marita Wetzel DO Date of Service: 02/03/25 Procedure(s): MR abdomen wo/w con Accession Number(s): [id number] cc: Marita Wetzel DO Reason for Exam: PANCREATIC MASS PROTOCOL f/u pnacreatic mass EXAMINATION: MR ABDOMEN WITHOUT AND WITH INTRAVENOUS CONTRAST CLINICAL INFORMATION: PANCREATIC MASS PROTOCOL f/u pancreatic mass COMPARISON: Abdomen/pelvis CT on November 27, 2024 describes 2.5 cm cystic lesion in the head of the pancreas with question of upstream pancreatic ductal dilatation and parenchymal atrophy. Abdomen MRI on January 27, 2013. TECHNIQUE: MR abdomen was performed without and with use of 6.5 cc intravenous Gadavist gadolinium contrast. Postcontrast images are performed in multiphase dynamic sequences. Imaging was performed in 3 planes. MRCP sequences were also obtained. FINDINGS: LOWER CHEST:: Mild atelectasis in the posterior right lung base associated with local pleural thickening, mildly improved from previous CT study. Cardiomegaly. LIVER: Hepatomegaly measuring 21.4 cm. Diffuse decreased T2 signal and drop in signal on the in-phase sequence compared to the [id number] sequence suggests iron overload. No focal lesion. GALLBLADDER AND BILIARY TREE: Nondistended gallbladder containing small gallstones. No intrahepatic or extrahepatic biliary ductal dilatation. PANCREAS: Multiple cystic lesions along the atrophic pancreas, the largest measuring 1.6 cm at the level of the head (3:24/48) and the largest in the body measuring 2.0 cm (5:28/46), some of them probably communicating with the pancreatic duct. No definite solid components identified within the cystic lesions on the postcontrast images. Mildly prominent pancreatic duct. SPLEEN: Mild splenomegaly measuring 12.4 cm. Diffuse decreased T2 signal suggesting iron overload. No focal lesions. ADRENAL GLANDS: No nodules. KIDNEYS AND URETERS: Mild bilateral cortical thinning. Multiple and bilateral T2 hyperintense renal cysts. No hydronephrosis. 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 GASTROINTESTINAL TRACT: No bowel distention. PERITONEUM/RETROPERITONEUM: Moderate amount of free fluid. Status post anterior abdominal wall hernia repair with mesh in place. ABDOMINAL WALL: Anasarca. LYMPH NODES: No lymphadenopathy. VASCULAR: No abdominal aortic aneurysm. Severe vascular calcifications are better appreciated on the previous CT study. OSSEOUS STRUCTURES: Decreased T2 signal of the bone marrow. MR/MR abdomen wo/w con IMPRESSION: 1. Multiple cystic lesions throughout the atrophic pancreas, some of them probably communicating with the pancreatic duct. 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 Sequela from chronic pancreatitis could also be considered in the differential. 2. Signal abnormality suggestive of iron overload in the liver, spleen and bone marrow. 3. Hepatomegaly. Mild splenomegaly. 4. Moderate ascites. 5. Mildly improved right lung base atelectasis and right pleural thickening. 6. Cholelithiasis. Electronically signed by: Marylou Espinoza MD 02/03/2025 04:16 PM EDT Dictated By: Marylou Espinoza MD Signed By: <Electronically signed by Marylou Espinoza MD in OV> 02/03/25 1616 DD/ 1340 TD/TT: 02/03/25 1420 Claim Investigator: Procedure Note Donotuseinterpreter, Image - 02/03/2025 [place] [address] Magnetic Resonance Report Signed Patient: Alix Sharp BMR#: [id number] 43 : 1960cct:[id number] Age/Sex: 64 / FADM Date: 02/03/25 Loc: HO.MRI Attending Dr: Marita Wetzel DO Ordering Physician: Marita Wetzel DO Date of Service: 02/03/25 Procedure(s): MR abdomen wo/w con Accession Number(s): [id number] cc: Marita Wetzel DO Reason for Exam: PANCREATIC MASS PROTOCOL f/u pnacreatic mass EXAMINATION: MR ABDOMEN WITHOUT AND WITH INTRAVENOUS CONTRAST CLINICAL INFORMATION: PANCREATIC MASS PROTOCOL f/u pancreatic mass COMPARISON: Abdomen/pelvis CT on November 27, 2024 describes 2.5 cm cystic lesion in the head of the pancreas with question of upstream pancreatic ductal dilatation and parenchymal atrophy. Abdomen MRI on January 27, 2013. TECHNIQUE: MR abdomen was performed without and with use of 6.5 cc intravenous Gadavist gadolinium contrast. Postcontrast images are performed in multiphase dynamic sequences. Imaging was performed in 3 planes. MRCP sequences were also obtained. FINDINGS: LOWER CHEST:: Mild atelectasis in the posterior right lung base associated with local pleural thickening, mildly improved from previous CT study. Cardiomegaly. LIVER: Hepatomegaly measuring 21.4 cm. Diffuse decreased T2 signal and drop in signal on the in-phase sequence compared to the [id number] sequence suggests iron overload. No focal lesion. GALLBLADDER AND BILIARY TREE: Nondistended gallbladder containing small gallstones. No intrahepatic or extrahepatic biliary ductal dilatation. PANCREAS: Multiple cystic lesions along the atrophic pancreas, the largest measuring 1.6 cm at the level of the head (3:24/48) and the largest in the body measuring 2.0 cm (5:28/46), some of them probably communicating with the pancreatic duct. No definite solid components identified within the cystic lesions on the postcontrast images. Mildly prominent pancreatic duct. SPLEEN: Mild splenomegaly measuring 12.4 cm. Diffuse decreased T2 signal suggesting iron overload. No focal lesions. ADRENAL GLANDS: No nodules. KIDNEYS AND URETERS: Mild bilateral cortical thinning. Multiple and bilateral T2 hyperintense renal cysts. No hydronephrosis. 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 GASTROINTESTINAL TRACT: No bowel distention. PERITONEUM/RETROPERITONEUM: Moderate amount of free fluid. Status post anterior abdominal wall hernia repair with mesh in place. ABDOMINAL WALL: Anasarca. LYMPH NODES: No lymphadenopathy. VASCULAR: No abdominal aortic aneurysm. Severe vascular calcifications are better appreciated on the previous CT study. OSSEOUS STRUCTURES: Decreased T2 signal of the bone marrow. MR/MR abdomen wo/w con IMPRESSION: 1. Multiple cystic lesions throughout the atrophic pancreas, some of them probably communicating with the pancreatic duct. 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 Sequela from chronic pancreatitis could also be considered in the differential. 2. Signal abnormality suggestive of iron overload in the liver, spleen and bone marrow. 3. Hepatomegaly. Mild splenomegaly. 4. Moderate ascites. 5. Mildly improved right lung base atelectasis and right pleural thickening. 6. Cholelithiasis. Electronically signed by: Marylou Espinoza MD 02/03/2025 04:16 PM EDT RP Dictated By: Marylou Espinoza MD Signed By: <Electronically signed by Marylou Espinoza MD in [place]> 02/03/25 1616 DD/ 1340 TD/TT: 02/03/25 1420 Claim Investigator: Marita Hintonnica DO IMG MRI PROCEDURES Final Res ult * (ABNORMAL) POCT Hgb A1c (02/01/2025 9:29 AM EDT) Only the most recent of2 resultswithin the time period is included. Hemoglobin A1C 6.4(A) 4.0 - 5.7 % QC Media Lot # [id number] Lot# Expiration Date , Blood 02/01/2025 9:29 AM EDT Marita Hintonnica DO POINT OF CARE TEST ENTER/HUMBERTO T ORDERABLES Final Result * POCT Glucose (02/01/2025 9:28 AM EDT) Only the most recent of2 resultswithin the time period is included. Glucose Blood, POC 164 60 - 200 mg/dL QC Media Lot # [id number] Lot# Expiration Date 3,026 Blood Capillary blood specimen / Unknown 02/01/2025 9:28 AM EDT Marita Wetzel DO POINT OF CARE TEST ENTER/HUMBERTO T ORDERABLES Final Result * (ABNORMAL) Creatinine, Serum (01/27/2025 4:23 PM EDT) Creatinine, Serum 4.40(HH) 0.5 - 1.4 mg/dL [facility] Comment:Critical value for t est(s): CREA Results called to and readback by: ESTELA Person calling: TIMI Date: 01/27/25Time:183 Estimated Glomerular Filt Rate 10 [facility] Comment:Chronic Kidney Disea se: Estimated GFR < 60 mL/min/1.11i4Kaqvgo Kidney Disease: Estimated GFR < 15 mL/min/1.73m2 01/27/2025 4:23 PM EDT 01/27/2025 4:23 PM EDT Generic External Data Provider LAB BLOOD ORDERAB LES Final Result Performing Organization Address [facility] Co de Phone Number [facility] [address] [place] [phone] * (ABNORMAL) BUN (Blood Urea Nitrogen) (01/27/2025 4:23 PM EDT) Urea Nitrogen (BUN) 21(H) 9 - 16 mg/dL [facility] 01/27/2025 4:23 PM EDT 01/27/2025 4:23 PM EDT us Generic External Data Provider LAB BLOOD ORDERAB LES Final Result Performing Organization Address [facility] de Phone Number [facility] [address] [place] [phone] * (ABNORMAL) Lipase (01/19/2025 1:45 PM EDT) Lipase 6(L) 8 - 78 U/L [facility] 01/19/2025 1:45 PM EDT 01/19/2025 1:48 PM EDT Generic External Data Provider LAB BLOOD ORDERAB LES Final Result Performing Organization Address [facility] de Phone Number [facility] [address] [place] [phone] * CT Abdomen Pelvis w/o Contrast (11/27/2024 2:54 PM EDT) Anatomical Region Laterality Modality Body, Pelvis, Abdomen Computed T omography 11/27/2024 2:54 PM EDT Narrative 11/27/2024 2:55 PM EDT [address] [address] [address] Scan Report Signed Patient: Alix Sharp MR#: [id number] 43 : 1960 Acct:[id number] Age/Sex: 64 / F ADM Date: 11/27/24 Loc: HO.ED Attending Dr: Ordering Physician: Shavonne Lima NP Date of Service: 11/27/24 Procedure(s): CT abdomen pelvis wo IV con Accession Number(s): [id number] cc: Marita Wetzel DO; Shavonne Lima NP Report Number: [id number]: Total DLP = 644.00 mGy-cm CLINICAL HISTORY: [...] Guillaume MD in OV> 11/27/24 1455 DD/ 145 TD/TT: 11/27/24 145 Claim Investigator: Procedure Note Donotuseinterpreter, Image - 11/27/[address] [address] [address] Scan Report Signed Patient: Alix Sharp BMR#: [id number] 43 : 1960cct:[id number] Age/Sex: 64 / FADM Date: 11/27/24 Loc: HO.ED Attending Dr: Ordering Physician: Shavonne Lima NP Date of Service: 11/27/24 Procedure(s): CT abdomen pelvis wo IV con Accession Number(s): [id number] cc: Marita Wetzel DO; Shavonne Lima NP Report Number: [id number]: Total DLP = 644.00 mGy-cm CLINICAL HISTORY: [...] 11/27/24 1455 DD/ 1454 TD/TT: 11/27/24 1454 Claim Investigator: [facility] External Provider IMG CT PROCEDURES Final Result * XR Elbow 3+ Views Left (11/27/2024 10:15 AM EDT) Anatomical Region Laterality Modality Upper Extremities, Elbow Left Radiogr aphic Imaging 11/27/2024 10:1 5 AM EDT Narrative 11/27/2024 10:17 AM EDT [address] [address] XRay Report Signed Patient: Alix Sharp MR#: [id number] 43 : 1960 Acct:[id number] Age/Sex: 64 / F ADM Date: 11/27/24 Loc: HO.ED Attending Dr: Ordering Physician: Generic ED Physician Date of Service: 11/27/24 Procedure(s): XR elbow LT min 3V Accession Number(s): [id number] cc: Generic ED Physician; Jurcsak,Marita A DO CLINICAL HISTORY: fall on elbow 3 [...] 11/27/24 1016 DD/ 1015 TD/TT: 11/27/24 1015 Claim Investigator: Procedure Note Donotuseinterpreter, Image - 11/27/2024 [place] [address] XRay Report Signed Patient: Alix Sharp BMR#: [id number] : 1960cct:[id number] Age/Sex: 64 / FADM Date: 11/27/24 Loc: HO.ED Attending Dr: Ordering Physician: Generic ED Physician Date of Service: 11/27/24 Procedure(s): XR elbow LT min 3V Accession Number(s): [id number] cc: Generic ED Physician; Marita Wetzel DO [...] 11/27/24 1016 DD/ 1015 TD/TT: 11/27/24 1015 Claim Investigator: [facility] External Provider IMG XR PROCEDURES Final [...] AM EDT Narrative 08/03/2023 8:29 PM EDT [address] [place] [address] Mammography Report Signed Patient: Alix Dennis MR#: [id number] : 1960 Acct:[id number] Age/Sex: 63 / F ADM Date: 07/17/23 Loc: HO.MAMMO Attending Dr: Marita Wetzel DO Ordering Physician: Marita Wetzel DO Results: 2B enign Findings Date of Service: 07/17/23 Follow Up: 1 Year From Orig inal Mammogram Procedure(s): MM tomosynthesis screening BI Accession Number(s): [id number] cc: Marita Wetzel DO EXAMINATION: MM SCREENING [...] MD in OV> 08/03/232024 DD/ 1045 TD/TT: Claim Investigator: Procedure Note Donotuseinterpreter, Image - 08/03/2023 [facility] [address] [place] [address] Mammography Report Signed Patient: Alix Dennis FMR#: [id number] : 1960cct:[id number] Age/Sex: 63 / FADM Date: 07/17/23 Loc: MAMMO Attending Dr: Marita Wetzel DO Ordering Physician: Marita Wetzelults: 2B enign Findings Date of Service: 07/17/23Follow Up: 1 Year From Orig inal Mammogram Procedure(s): MM tomosynthesis screening BI Accession Number(s): [id number] cc: Marita Wetzel DO EXAMINATION: MM SCREENING [...] MD in OV> 08/03/232024 DD/ 1045 TD/TT: Claim Investigator: Marita Wetzel DO IMG BI PROCEDURES Edited Res ult - Final * Hm Pap Smear (08/12/2018) Pap Negative for intraephithelial lesion or malignancy Negative for intraephithelial lesion or malignancy, Other HPV Undetected Undetected, Indeterminate, Quantitative, Not Detected Historical Provider HEALTH MAINTENANCE Final Result from Last 3 Months or Most Recently Relevant to Health Maintenance Insurance [place] [phone] [facility] Care Teams Ball Assembler Relationship Specialty Start Date End Date Marita Wetzel DO [address] [place] [address] PCP - General Family Medicine 04/21/18 [facility] 05/22/24
--- OUTSIDE RECORDS SUMMARY | 2025-02-07 21:06 | XMS_ITS | Encounter Summary ---
Author Organization [facility] [place], Address [address] [place] [address] Phone Care Team Providers Care Street Supervisor Name Role Phone Marita Wetzel DO Primary Care Provider Unava ilable Reason for Visit * Reason Comments Med Refill Encounter Details Date Type Department Care Team (Late Contact Info) Description 01/04/2021 Refill [facility] [address] [place] [phone] Bernardo Doty MD [address] [facility] [place] [phone] Social History Tobacco Use Types Packs/Day Years [...] [facility] [address] [place] [phone] 07/12/2025 1:00 PM EDT Scheduled Only [facility] [address] [place] [address] documented as of this encounter Visit Diagnoses Not on filedocumented in this encounter Care Teams Street Supervisor Relationship Specialty Start Date End Date Marita Wetzel DO [address] [place] [address] PCP - General Family Medicine 11/14/22 documented as of this encounter
--- OUTSIDE RECORDS SUMMARY | 2025-02-07 21:06 | XMS_ITS | Encounter Summary ---
Author Organization [facility] [place], Address PO [facility] [place] [address] Phone Care Team Providers Care School Community Relations Coordinator Name Role Phone Marita Wetzel DO Primary Care Provider Unava ilable Reason for Visit * Reason Comments Med Refill Encounter Details Date Type Department Care Team (Late Contact Info) Description 06/30/2024 Refill [facility] [place] [address] [place] [phone] Srinivas Agrawal MD [address] [facility] [place] [phone] Social History Tobacco Use Types Packs/Day Years [...] [facility] [address] [place] [phone] 07/12/2025 1:00 PM EDT Scheduled Only [facility] [address] [place] [phone] documented as of this encounter Procedures Procedure Name Priority Date/Time Associated Diagnosis Comments HEMATOLOGY Routine 06/30/2024 documented in this encounter Results * (ABNORMAL) HEMATOLOGY (06/30/2024) Hemoglobin 6.3(L) 12.0 - 16.0 g/dL [facility] Hemoglobin x 3 18.9(L) 36.0 - 48.0 % [facility] 06/30/2024 07/01/2024 10: 49 AM EDT Narrative [facility] - 07/01/2024 Unless otherwise specified, test(s) performed at: [facility], [address] [place] [address] LITHOGRAPHIC RETOUCHER APPRENTICE: Dwayne Fuentes M.D. For any questions, please call customer service at FREQUENCY:OTHER Resulting Agency Comment Specimen source: Blood Srinivas Agrawal MD LAB BLOOD ORDERABLES Final Result [facility] See order comments or contact performing lab Unknown, [place] documented in this encounter Visit Diagnoses Not on filedocumented in this encounter Care Teams School Community Relations Coordinator Relationship Specialty Start Date End Date Marita Wetzel DO [address] [place] [address] PCP - General Family Medicine 11/14/22 documented as of this encounter
--- OUTSIDE RECORDS SUMMARY | 2025-02-07 21:06 | XMS_ITS | Encounter Summary ---
Author Organization [facility] [place], Address PO [facility] [address] Phone Care Team Providers Care Flexo Operator Name Role Phone Marita Wetzel DO Primary Care Provider Unava ilable Reason for Visit * Reason Comments Med Refill Encounter Details Date Type Department Care Team (Late Contact Info) Description 06/18/2024 Refill [facility] [place] [address] [place] [address] Srinivas Agrawal MD [address] [facility] [place] [phone] Social History Tobacco Use Types Packs/Day Years [...] [facility] [address] [place] [phone] 07/12/2025 1:00 PM EDT Scheduled Only [facility] [address] [place] [phone] documented as of this encounter Procedures Procedure Name Priority Date/Time Associated Diagnosis Comments HD KINETICS Routine 06/18/2024 POST CHEMISTRY Routine 06/18/2024 IMMUNO CHEMISTRY Routine 06/18/2024 HEMATOLOGY Routine 06/18/2024 CHEMISTRY Routine 06/18/2024 CHEMISTRY Routine 06/18/2024 [facility] RESULTS Routine 06/18/2024 documented in this encounter Results * [facility] Results (06/18/2024) Pathologist [facility] eKt/V ([place]all) 1.28 [facility] WSTDKT/V 0.8 [facility] spKt/V (Daugirdas II) 1.50 [facility] 06/18/2024 06/18/2024 [facility] Ordering Provider LAB BLOOD ORDERABLES Final Result [facility] Contact Performing lab Unknown, [place] * HD KINETICS (06/18/2024) Pathologist [facility] % Urea Reduction 70 65 - 80 % [facility] 06/18/2024 06/22/2024 9:5 5 AM EST Narrative Resulting Agency Comment Specimen source: Plasma us Srinivas Agrawal MD LAB BLOOD ORDERABLES Final Result [facility] See order comments or contact performing lab Unknown, [place] * POST CHEMISTRY (06/18/2024) Pathologist [facility] BUN Post Dialysis 13 6 - 19 mg/dL [facility] 06/18/2024 06/22/2024 9:5 5 AM EST Narrative [facility] - 06/22/2024 Unless otherwise specified, test(s) performed at: [facility], [address] [place] [address] WELT STITCH CLEANER: Dwayne Fuentes M.D. For any questions, please call customer service at FREQUENCY:MONTHLY Resulting Agency Comment Specimen source: Plasma Srinivas Agrawal MD LAB BLOOD ORDERABLES Final Result [facility] See order comments or contact performing lab Unknown, [place] * IMMUNO CHEMISTRY (06/18/2024) Pathologist [facility] Hep B Surface Ag Negative Negative [facility] 06/18/2024 06/19/2024 11: 21 AM EST Narrative Resulting Agency Comment Specimen source: Serum Srinivas Agrawal MD LAB BLOOD ORDERABLES Final Result Performing Organization Address City/[facility]/ZIP Co de Phone Number [facility] See order comments or contact performing lab Unknown, [place] * (ABNORMAL) [facility] (06/18/2024) Pathologist [facility] BUN 44(H) 6 - 19 [...] 06/19/2024 Unless otherwise specified, test(s) performed at: [facility], [address] [place], [place] [id number] WELT STITCH CLEANER: Dwayne Fuentes M.D. For any questions, please call customer service at FREQUENCY:MONTHLY Resulting Agency Comment Specimen source: Serum Srinivas Agrawal MD LAB BLOOD ORDERABLES Edite d Result - Final Performing Organization Address [facility] Co de Phone Number [facility] See order comments or contact performing lab Unknown, [place] * (ABNORMAL) HEMATOLOGY (06/18/2024) Hemoglobin 7.9(L) 12.0 - 16.0 g/dL [facility] Hemoglobin x 3 23.7(L) 36.0 - 48.0 % [facility] 06/18/2024 06/19/2024 12: 24 PM EST Narrative [facility] - 06/19/2024 Unless otherwise specified, test(s) performed at: [facility], [address] [place] [address] WELT STITCH CLEANER: Dwayne Fuentes M.D. For any questions, please call customer service at FREQUENCY:MONTHLY Resulting Agency Comment Specimen source: Blood Srinivas Agrawal MD LAB BLOOD ORDERABLES Final Result Performing Organization Address City/[facility]/ZIP Co de Phone Number [facility] See order comments or contact performing lab Unknown, [place] * (ABNORMAL) [facility] (06/18/2024) PTH 145(H) 16 - 80 pg/mL [facility] 06/18/2024 06/19/2024 11: 40 AM EST Narrative [facility] - 06/19/2024 Unless otherwise specified, test(s) performed at: [facility], [address] [place] [address] WELT STITCH CLEANER: Dwayne Fuentes M.D. For any questions, please call customer service at FREQUENCY:MONTHLY Resulting Agency Comment Specimen source: Plasma us Srinivas Agrawal MD LAB BLOOD ORDERABLES Final Result [facility] See order comments or contact performing lab Unknown, [place] documented in this encounter Visit Diagnoses Not on filedocumented in this encounter Care Teams Flexo Operator Relationship Specialty Start Date End Date Marita Wetzel DO [address] [place] [address] PCP - General Family Medicine 11/14/22 documented as of this encounter
--- OUTSIDE RECORDS SUMMARY | 2025-02-07 21:06 | XMS_ITS | Encounter Summary ---
Author Organization [employer] Address [address] [facility] 7[address] [place] [address] Care Team Providers Care Drafter Refrigeration Name Role Phone DevendraMarita perez Primary Care Provider + [phone] Encounter Details Date Type Department Care Team (Late st Contact Info) Description 02/07/2025 Orders Only GENERIC EXTERNAL DATA [...] Description 02/17/2025 10:00 AM EDT Medication Management [facility] [address] [place] [address] PuiaJonathonCarmen, PharmD [address] [place] [address] documented as of this encounter Goals Goal [...] 1 VIEW Routine 02/07/2025 6:43 PM EDT CBC WITH AUTO DIFFERENTIAL Routine 02/07/2025 5:13 PM EDT COMPREHENSIVE METABOLIC PANEL Routine 02/07/2025 5:13 PM EDT documented in this encounter Results * XR Hip left with Pelvis 1 view (02/07/2025 6:43 PM EDT) Anatomical Region Laterality Modality Lower Extremities, Hip Bilateral Radiograp hic Imaging 02/07/2025 6:43 PM EDT Narrative 02/07/2025 6:44 PM EDT [address] [place] [address] XRay Report Signed Patient: Alix Sharp MR#: [id number] 43 : 1960 Acct:[id number] Age/Sex: 64 / F ADM Date: 02/07/25 Loc: HO.ED Attending Dr: Ordering Physician: Jerod Simons Date of Service: 02/07/25 Procedure(s): XR hip LT w PEL1V Accession Number(s): [id number] cc: Marita Wetzel DO; Jerod Simons Reason [...] in OV> 02/07/251843 DD/ 42 TD/TT: 02/07/251842 Child Center Assistant: Procedure Note Donotuseinterpreter, Image - 02/07/[address] [address] XRay Report Signed Patient: Alix Sharp BMR#: [id number] 43 : 1960cct:[id number] Age/Sex: 64 / FADM Date: 02/07/25 Loc: HO.ED Attending Dr: Ordering Physician: Jerod Simons Date of Service: 02/07/25 Procedure(s): XR hip LT w PEL1V Accession Number(s): [id number] cc: DamariMaritaana Rubin DO; Jerod Simons Reason for Exam: pain [...] in OV> 02/07/251843 DD/ 42 TD/TT: 02/07/251842 Child Center Assistant: [facility] External Provider IMG XR PROCEDURES Edited Result - Final * (ABNORMAL) Comprehensive Metabolic Panel (02/07/2025 5:13 PM EDT) Sodium 137 135 - 145 mmol/L [facility] Potassium 3.9 3.3 - 5.1 mmol/L [facility] Chloride 98 96 - 108 mmol/L [facility] Carbon Dioxide 26 22 - 29 mmol/L [facility] Anion Gap 17 12 - 20 [facility] Urea Nitrogen (BUN) 16 9 - 16 mg/dL [facility] Creatinine, Serum 3.66(H) 0.5 - 1.4 mg/dL [facility] Creatinine Clr Calc Pharmacy 16.4 [facility] Comment:Provided height and weight: 170.18 cm,75 kg.eGFR (calculated from the MDRD study equation) and eCrCl(calculated from the Cockcroft-Gault equation) are based ondifferent parameters and may not yield comparable results.If eCrCl result is absurd, please check patient'sheight/weight. Estimated Glomerular Filt Rate 12 [facility] Comment:Chronic Kidney Disea se: Estimated GFR < 60 mL/min/1.88v3Emgcxt Kidney Disease: Estimated GFR < 15 mL/min/1.73m2 Glucose 161(H) 60 - 115 mg/dL [facility] Calcium 8.8 8.4 - 10.2 mg/dL [facility] Bilirubin, Total 0.5 0.0 - 1.0 mg/dL [facility] Aspartate Amino Transferase 24 5 - 31 U/L [facility] Alanine Aminotransferase 8 0 - 31 U/L [facility] Total Protein 8.6(H) 6.5 - 8.0 g/dL [facility] Albumin Level 3.8 3.5 - 5.0 g/dL [facility] Alkaline Phosphatase 153(H) 39 - 117 U/L [facility] 02/07/2025 5:13 PM EDT 02/07/2025 5:15 PM EDT us Generic External Data Provider LAB BLOOD ORDERAB LES Final Result [facility] [address] [place] [address] [phone] * (ABNORMAL) CBC auto differential (02/07/2025 5:13 PM EDT) White Blood Count 5.8 4.8 - 10.8 X10*3/uL [facility] Red Blood Count 3.96(L) 4.20 - 5.50 X10*6/uL [facility] Hemoglobin 10.3(L) 12.0 - 16.0 g/dl [facility] Hematocrit 34.9(L) 37.0 - 47.0 % [facility] Mean Corpuscular Volume 88.1 80.0 - 98.0 fL [facility] Mean Corpuscular Hemoglobin 26.0(L) 27.0 - 33.0 pg [facility] Mean Corpuscular HGB Conc 29.5(L) 31.0 - 35.0 g/dl [facility] Red Cell Distribution Width 18.3(H) 11.0 - 16.0 % [facility] Platelet Count 200 160 - 400 X10*3/uL [facility] Mean Platelet Volume 9.2(L) 9.4 - 12.3 fL [facility] Neutrophils Percent Auto 79.5(H) 45 - 73 % [facility] Imm Gran Pct Auto 0.5(H) 0.0 - 0.4 % [facility] Lymphocytes Percent Auto 11.4(L) 20 - 40 % [facility] Monocytes Percent Auto 7.1 2 - 11 % [facility] Eosinophils Percent Auto 1.2 0 - 4 % [facility] Basophils Percent Auto 0.3 0 - 2 % [facility] NRBC Pct Auto 0.3(H) 0.0 - 0.2 /100WBC [facility] Neutrophils Absolute Auto 4.6 2.0 - 8.3 x10*3/uL [facility] Imm Gran Abs Auto 0.03 0.00 - 0.03 X10*3/uL [facility] Lymphocytes Absolute Auto 0.7(L) 1.2 - 4.9 X10*3/uL [facility] Monocytes Absolute Auto 0.4 0.1 - 1.2 X10*3/uL [facility] Eosinophils Absolute Auto 0.1 0.0 - 0.4 X10*3/uL [facility] Basophils Absolute Auto 0.0 0.0 - 0.2 X10*3/uL [facility] NRBC Abs Auto 0.020(H) 0.0 - 0.012 X10*3/uL [facility] 02/07/2025 5:13 PM EDT 02/07/2025 5:15 PM EDT us Generic External Data Provider LAB BLOOD ORDERAB LES Final Result [facility] [address] [place] [address] [phone] documented in this encounter Visit Diagnoses Not on filedocumented in this encounter Additional Health Concerns Assessment Noted Time PHQ-9 Depression Total Score: 0 10/09/19 23 9:31 AM EDT documented as of this encounter Care Teams Drafter Refrigeration Relationship Specialty Start Date End Date Marita Wetzel DO [address] [place] [address] PCP - General Family Medicine 04/21/18 [facility] 05/22/24 documented as of this encounter
--- OUTSIDE RECORDS SUMMARY | 2025-02-07 21:06 | XMS_ITS | Encounter Summary ---
Author Organization [facility] Address [address] [place] [address] Phone Care Team Providers Care Acquisition Consultant Name Role Phone Marita Wetzel DO Primary Care Provider Unava ilable Encounter Details Date Type Department Care Team (Late st Contact Info) Description 01/21/2024 Documentation Only [facility] [address] [place] [phone] Pauline Aguayo [address] [place] [phone] Social History Tobacco Use Types Packs/Day Years [...] [facility] [place] [place] [phone] 07/12/2025 1:00 PM EDT Scheduled Only [facility] Access [place] [address] [facility] [place] [phone] documented as of this encounter Visit Diagnoses Not on filedocumented in this encounter Care Teams Acquisition Consultant Relationship Specialty Start Date End Date Marita Wetzel DO [address] [place] [address] PCP - General Family Medicine 11/14/22 documented as of this encounter
--- OUTSIDE RECORDS SUMMARY | 2025-02-07 21:06 | XMS_ITS | Encounter Summary ---
Author Organization [facility] Address [address] [place] [address] Phone Care Team Providers Care Blower Mechanic Name Role Phone Marita Wetzel DO Primary Care Provider Unava ilable Encounter Details Date Type Department Care Team (Late st Contact Info) Description 04/17/2024 Documentation Only [facility] [address] [address] [place] [address] [place], [place], [place] [address] [place] [phone] Social History Tobacco Use Types Packs/Day Years [...] [facility] Center [address] [place] [phone] 07/12/2025 1:00 PM EDT Scheduled Only [facility] Vascular Access [place] [address] [place] [address] documented as of this encounter Visit Diagnoses Not on filedocumented in this encounter Care Teams Blower Mechanic Relationship Specialty Start Date End Date Marita Wetzel DO [address] [place] [address] PCP - General Family Medicine 11/14/22 documented as of this encounter
--- OUTSIDE RECORDS SUMMARY | 2025-02-07 21:06 | XMS_ITS | Encounter Summary ---
Author Organization [facility] Address [address] [place] [address] Phone Care Team Providers Care Nurse School Name Role Phone Marita Wetzel DO Primary Care Provider Unava ilable Encounter Details Date Type Department Care Team (Late st Contact Info) Description 04/13/2024 Documentation Only [facility] [address] [facility] [place] [address] [place], [place], [place] [address] [place] [phone] Social History Tobacco Use Types Packs/Day Years [...] [facility] Access Center [address] [place] [phone] 07/12/2025 1:00 PM EDT Scheduled Only [facility] Vascular Access [place] [address] [place] [address] documented as of this encounter Visit Diagnoses Not on filedocumented in this encounter Care Teams Nurse School Relationship Specialty Start Date End Date Marita Wetzel DO [address] [place] [address] PCP - General Family Medicine 11/14/22 documented as of this encounter
--- OUTSIDE RECORDS SUMMARY | 2025-02-07 21:06 | XMS_ITS | Encounter Summary ---
Author Organization [employer] Address [address] [facility] [address] [place] [address] Care Team Providers Care Pricing Intern Name Role Phone Marita Wetzel DO Primary Care Provider + [phone] Reason for Visit * Reason Onset Date Comments Hospital Follow-up 06/11/2024 Encounter Details Date Type Department Care Team ([facility] st Contact Info) Description 06/11/2024 Telephone [facility] [address] [place] [address] Marita Wetzel DO [address] [place], [place] [phone] Hospital Follow-up Social History Tobacco Use Types [...] from pt requesting a HDF appt. [facility]: [facility] Date of admission: 05/31/2024 Discharge date: ------ Diagnosed:kidney failure *Send message to [facility] Clinical Care Coordinators documented in this encounter Plan of Treatment Upcoming Encounters Date Type Department Care Team (Late st Contact Info) Description 02/17/2025 10:00 AM EDT Medication Management [facility] [address] [place] [address] Carmen Becker, PharmD [address] [place] [address] documented as of this encounter Goals Goal [...] documented as of this encounter Care Teams Pricing Intern Relationship Specialty Start Date End Date Marita Wetzel DO [address] [place] [address] PCP - General Family Medicine 04/21/18 [facility] 05/22/24 documented as of this encounter
--- OUTSIDE RECORDS SUMMARY | 2025-02-07 21:06 | XMS_ITS | Encounter Summary ---
Author Organization [facility] Address [address] [place] [address] Phone Care Team Providers Care Unit Assistant Name Role Phone Marita Wetzel DO Primary Care Provider Unava ilable Encounter Details Date Type Department Care Team (Late st Contact Info) Description 09/26/2022 Documentation Only [facility] [address] [place] [phone] Candace Adam PA [address] [place] [address] [place] [phone] Social History Tobacco Use Types Packs/Day Years [...] Of [facility] Vascular Access [address] [place] [phone] 07/12/2025 1:00 PM EDT Scheduled Only [facility] Vascular Access [address] [place] [phone] documented as of this encounter Visit Diagnoses Not on filedocumented in this encounter Care Teams Unit Assistant Relationship Specialty Start Date End Date Marita Wetzel DO [address] [place] [address] PCP - General Family Medicine 11/14/22 documented as of this encounter
--- OUTSIDE RECORDS SUMMARY | 2025-02-07 21:06 | XMS_ITS | Encounter Summary ---
Author Organization [facility] [place], Address [address] [place] [address] Phone Care Team Providers Care Propellant Charge Loader Name Role Phone Marita Wetzel DO Primary Care Provider Unava ilable Encounter Details Date Type Department Care Team (Late st Contact Info) Description 10/17/2023 Documentation Only [facility] [address] [place] [phone] [place], [place] [address] [place] [phone] Social History Tobacco Use Types Packs/Day Years [...] Care And Transplant Services Of [facility] - Vascular Access Center [address] [place] [address] 07/12/2025 1:00 PM EDT Scheduled Only [facility] Vascular Access Center [address] [place] [phone] documented as of this encounter Visit Diagnoses Not on filedocumented in this encounter Care Teams Propellant Charge Loader Relationship Specialty Start Date End Date Marita Wetzel DO [address] [place] [address] PCP - General Family Medicine 11/14/22 documented as of this encounter
--- OUTSIDE RECORDS SUMMARY | 2025-02-07 21:06 | XMS_ITS | Encounter Summary ---
Author Organization [facility] Address [address] [place] [address] Phone Care Team Providers Care Child Welfare Consultant Name Role Phone Marita Wetzel DO Primary Care Provider Unava ilable Encounter Details Date Type Department Care Team (Late st Contact Info) Description 10/06/2023 Documentation Only [facility] [address] [place] [phone] [place], [place], [place] [address] [place] [phone] Social History Tobacco Use Types Packs/Day Years [...] And Transplant Services Of [facility] - Vascular Access Center [address] [place] [address] 07/12/2025 1:00 PM EDT Scheduled Only [facility] Vascular Access Center [address] [place] [phone] documented as of this encounter Visit Diagnoses Not on filedocumented in this encounter Care Teams Child Welfare Consultant Relationship Specialty Start Date End Date Marita Wetzel DO [address] [place] [address] PCP - General Family Medicine 11/14/22 documented as of this encounter
--- OUTSIDE RECORDS SUMMARY | 2025-02-07 21:06 | XMS_ITS | Encounter Summary ---
Author Organization [facility] Address [address] [place] [address] Phone Care Team Providers Care Plant Chief Name Role Phone Marita Wetzel DO Primary Care Provider Unava ilable Encounter Details Date Type Department Care Team (Late st Contact Info) Description 11/11/2022 Documentation Only [facility] Of [address] [place] [phone] Pauline Aguayo [address] [place] [address] Social History Tobacco Use Types [...] Support [facility] Of [facility] Vascular Access Center [address] [place] [address] 07/12/2025 1:00 PM EDT Scheduled Only [facility] Vascular Access Center [address] [place] [address] documented as of this encounter Visit Diagnoses Not on filedocumented in this encounter Care Teams Plant Chief Relationship Specialty Start Date End Date Marita Wetzel DO [address] [place] [address] PCP - General Family Medicine 11/14/22 documented as of this encounter
--- OUTSIDE RECORDS SUMMARY | 2025-02-07 21:06 | XMS_ITS | Encounter Summary ---
Author Organization [facility] Address [address] [place] [address] Phone Care Team Providers Care Trade Clerk Name Role Phone Marita Wetzel DO Primary Care Provider Unava ilable Encounter Details Date Type Department Care Team (Late st Contact Info) Description 12/06/2022 Documentation Only [facility] [address] [place] [phone] [place], [place] [address] [place] [phone] Social History Tobacco Use Types Packs/Day Years [...] Of [facility] - Vascular Access Center [address] [place] [phone] 07/12/2025 1:00 PM EDT Scheduled Only [facility] Vascular Access Center [address] [place] [phone] documented as of this encounter Visit Diagnoses Not on filedocumented in this encounter Care Teams Trade Clerk Relationship Specialty Start Date End Date Marita Wetzel DO [address] [place] [address] PCP - General Family Medicine 11/14/22 documented as of this encounter
--- OUTSIDE RECORDS SUMMARY | 2025-02-07 21:07 | XMS_ITS | Encounter Summary ---
Author Organization [facility] Address [address] [place] [address] Phone Care Team Providers Care Rug Dry Room Attendant Name Role Phone Marita Wetzel DO Primary Care Provider Unava ilable Encounter Details Date Type Department Care Team (Late st Contact Info) Description 07/29/2023 Documentation Only [facility] [address] [place] [phone] Pauline Aguayo [address] [place] [phone] Social History Tobacco Use Types Packs/Day Years [...] [facility] [address] [place] [address] 07/12/2025 1:00 PM EDT Scheduled Only [facility] Vascular Access Center [address] [place] [address] documented as of this encounter Visit Diagnoses Not on filedocumented in this encounter Care Teams Rug Dry Room Attendant Relationship Specialty Start Date End Date Marita Wetzel DO [address] [place] [address] PCP - General Family Medicine 11/14/22 documented as of this encounter
--- OUTSIDE RECORDS SUMMARY | 2025-02-07 21:07 | XMS_ITS | Encounter Summary ---
Author Organization [facility] Address [address] [place] [address] Phone Care Team Providers Care Hydraulic Auto Jack Mechanic Name Role Phone Marita Wetzel DO Primary Care Provider Unava ilable Encounter Details Date Type Department Care Team (Late st Contact Info) Description 06/12/2023 Documentation Only [facility] Of [address] [place] [phone] [place], [place], [place] [address] [place] [phone] Social History Tobacco Use Types Packs/Day Years [...] And Transplant Services Of [facility] - Vascular Access Center [address] [place] [address] 07/12/2025 1:00 PM EDT Scheduled Only [facility] Vascular Access Center [address] [place] [address] documented as of this encounter Visit Diagnoses Not on filedocumented in this encounter Care Teams Hydraulic Auto Jack Mechanic Relationship Specialty Start Date End Date Marita Wetzel DO [address] [place] [address] PCP - General Family Medicine 11/14/22 documented as of this encounter
--- OUTSIDE RECORDS SUMMARY | 2025-02-07 21:07 | XMS_ITS | Encounter Summary ---
Author Organization [facility] Address [address] [place] [address] Phone Care Team Providers Care National Account Manager Name Role Phone Marita Wetzel DO Primary Care Provider Unava ilable Encounter Details Date Type Department Care Team (Late st Contact Info) Description 08/11/2023 Documentation Only [facility] Of [address] [place] [phone] [place], [place], [place] [address] [place] [phone] Social History Tobacco Use Types Packs/Day Years [...] Care And Transplant Services Of [facility] - Vascular Access Center [address] [place] [address] 07/12/2025 1:00 PM EDT Scheduled Only [facility] Vascular Access Center [address] [place] [phone] documented as of this encounter Visit Diagnoses Not on filedocumented in this encounter Care Teams National Account Manager Relationship Specialty Start Date End Date Marita Wetzel DO [address] [place] [address] PCP - General Family Medicine 11/14/22 documented as of this encounter
--- OUTSIDE RECORDS SUMMARY | 2025-02-07 21:07 | XMS_ITS | Encounter Summary ---
Author Organization [facility] Of [facility] Address [address] [place] [address] Phone Care Team Providers Care Mallet And Die Cutter Name Role Phone Marita Wetzel DO Primary Care Provider Unava ilable Encounter Details Date Type Department Care Team (Late st Contact Info) Description 09/12/2023 Documentation Only [facility] [address] [place] [address] [place], [place], [place] [address] [place] [phone] Social History Tobacco Use Types Packs/Day Years [...] Support [facility] - Vascular Access Center [address] [place] [address] 07/12/2025 1:00 PM EDT Scheduled Only [facility] Of [facility] Vascular Access Center [address] [place] [phone] documented as of this encounter Visit Diagnoses Not on filedocumented in this encounter Care Teams Mallet And Die Cutter Relationship Specialty Start Date End Date Marita Wetzel DO [address] [place] [address] PCP - General Family Medicine 11/14/22 documented as of this encounter
--- OUTSIDE RECORDS SUMMARY | 2025-02-07 21:07 | XMS_ITS | Encounter Summary ---
Author Organization [facility] Address [address] [place] [address] Phone Care Team Providers Care Animal Handler Name Role Phone Marita Wetzel DO Primary Care Provider Unava ilable Encounter Details Date Type Department Care Team (Late st Contact Info) Description 09/11/2023 Documentation Only [facility] Of [address] [place] [address] Pauline Aguayo [address] [place] [address] Social History Tobacco Use Types [...] [facility] Vascular Access Center [address] [place] [address] 07/12/2025 1:00 PM EDT Scheduled Only [facility] Of [facility] Vascular Access Center [address] [place] [phone] documented as of this encounter Visit Diagnoses Not on filedocumented in this encounter Care Teams Animal Handler Relationship Specialty Start Date End Date Marita Wetzel DO [address] [place] [address] PCP - General Family Medicine 11/14/22 documented as of this encounter
--- OUTSIDE RECORDS SUMMARY | 2025-02-07 21:07 | XMS_ITS | Encounter Summary ---
Author Organization [facility], Address [address] [place] [address] Phone Care Team Providers Care Bleacher Operator Name Role Phone Marita Wetzel DO Primary Care Provider Unava ilable Encounter Details Date Type Department Care Team (Late st Contact Info) Description 06/23/2023 Documentation Only [facility] [address] [place] [phone] [place], [place] [address] [place] [phone] Social History Tobacco Use Types Packs/Day Years [...] [facility] - Vascular Access Center [address] [place] [address] 07/12/2025 1:00 PM EDT Scheduled Only [facility] Vascular Access Center [address] [place] [phone] documented as of this encounter Visit Diagnoses Not on filedocumented in this encounter Care Teams Bleacher Operator Relationship Specialty Start Date End Date Marita Wetzel DO [address] [place] [address] PCP - General Family Medicine 11/14/22 documented as of this encounter
--- OUTSIDE RECORDS SUMMARY | 2025-02-07 21:07 | XMS_ITS | Encounter Summary ---
Author Organization [facility] Address [address] [place] [address] Phone Care Team Providers Care Brood Hatchery Manager Name Role Phone Marita Wetzel DO Primary Care Provider Unava ilable Encounter Details Date Type Department Care Team (Late st Contact Info) Description 06/25/2022 Documentation Only [facility] Of [address] [place] [address] Pauline Aguayo [address] [place] [address] Social History Tobacco Use Types [...] Support [facility] Of [facility] Vascular Access Center [address] [place] [address] 07/12/2025 1:00 PM EDT Scheduled Only [facility] Vascular Access Center [address] [place] [phone] documented as of this encounter Visit Diagnoses Not on filedocumented in this encounter Care Teams Brood Hatchery Manager Relationship Specialty Start Date End Date Marita Wetzel DO [address] [place] [address] PCP - General Family Medicine 11/14/22 documented as of this encounter
--- OUTSIDE RECORDS SUMMARY | 2025-02-07 21:07 | XMS_ITS | Encounter Summary ---
Author Organization [facility] Address [address] [place] [address] Phone Care Team Providers Care Campus Dean Name Role Phone Marita Wetzel DO Primary Care Provider Unava ilable Encounter Details Date Type Department Care Team (Late st Contact Info) Description 08/27/2023 Documentation Only [facility] [address] [place] [address] [place], [place], [place] [address] [place] [phone] Social History Tobacco Use Types Packs/Day Years [...] Transplant Services Of [facility] - Vascular Access Center [address] [phone] 07/12/2025 1:00 PM EDT Scheduled Only [facility] Vascular Access Center [address] [place] [phone] documented as of this encounter Visit Diagnoses Not on filedocumented in this encounter Care Teams Campus Dean Relationship Specialty Start Date End Date Marita Wetzel DO [address] [place] [address] PCP - General Family Medicine 11/14/22 documented as of this encounter
--- OUTSIDE RECORDS SUMMARY | 2025-02-07 21:07 | XMS_ITS | Clinical Summary ---
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 68479 mL 12 02/10/20 24 Active predniSONE 5 MG tablet Take 1.5 tablets (7.5 mg total) by mouth 1 (one) time each day 30 tablet 11 02/11/20 24 025 Active mycophenolate (MYFORTIC) 360 MG EC tablet Take 1 tablet (360 mg total) by mouth in the morning and 1 tablet (360 mg total) in the evening. 120 tablet 3 02/02/20 24 025 Active Problems Problem Noted Date Diagnosed Date [...] Encounters Date Type Department Care Team Description 01/31/2025 Treatment [facility] [address] [place] [address] Benrardo Doty MD End stage renal disease; Dependence on renal dialysis 01/28/2025 Treatment [facility] [address] [place] [address] Bernardo Doty MD End stage renal disease; Dependence on renal dialysis 01/26/2025 9:30 AM EDT Clinical Support [facility] - [facility] [address] [place] [address] Hazel Zepeda Encounter for fitting and adjustment of vascular catheter [Z45.2] (Primary Dx); End stage renal disease (HCC) [N18.6] 01/26/2025 Treatment [facility] [address] [place] [address] Bernardo Doty MD End stage renal disease; Dependence on renal dialysis 01/24/2025 Treatment [facility] [place], [place] [address] Bernardo Doty MD End stage renal disease; Dependence on renal dialysis 01/21/2025 Orders Only [facility] [place], [place] [place] [address] Provider, Ivet Ordering 01/10/2025 Treatment [facility] [place], [place] [address] Bernardo Doty MD End stage renal disease; Dependence on renal dialysis 01/05/2025 Treatment [facility], [place] [place] [address] Bernardo Doyt MD End stage renal disease; Dependence on renal dialysis 01/03/2025 Treatment [facility] [address] [place] [address] Bernardo Doty MD End stage renal disease; Dependence on renal dialysis 12/29/2024 9:30 AM EDT Clinical Support [facility] [address] [place] [phone] Hazel Zepeda Encounter for fitting and adjustment of vascular catheter [Z45.2] (Primary Dx); Stage 5 chronic kidney disease (HCC) [N18.5] 12/29/2024 Orders Only [facility] [address] [address] Srinivas Agrawal MD 12/27/2024 Treatment [facility] [place] [place] [address] Bernardo Doty MD End stage renal disease; Dependence on renal dialysis 12/22/2024 Telephone [facility] [address] [place] [phone] Lakesha Sandoval 12/17/2024 Orders Only [facility] [address] [address] Srinivas Agrawal MD 12/13/2024 Orders Only [facility] [address] [address] Bernardo Doty MD 12/10/2024 Orders Only [facility] [address] [address] Bernardo Doty MD 12/08/2024 Treatment [facility] [address] [place] [address] Bernardo Doty MD End stage renal disease; Dependence on renal dialysis 12/08/2024 Orders Only [facility] [address] [address] Srinivas Agrawal MD 12/06/2024 Orders Only [facility] [address] [address] Bernardo Doty MD 12/06/2024 Treatment [facility] [address] [place] [address] Bernardo Doty MD End stage renal disease; Dependence on renal dialysis 12/01/2024 Orders Only [facility] [address] [address] Srinivas Agrawal MD 11/24/2024 Orders Only [facility] [address] [address] Srinivas Agrawal MD 11/22/2024 Treatment [facility] [address] [place] [address] Bernardo Doty MD End stage renal disease; Dependence on renal dialysis 11/19/2024 Treatment [facility] [address] [place] [address] Bernardo Doty MD End stage renal disease; Dependence on renal dialysis 11/17/2024 Orders Only [facility] [address] [address] Srinivas Agrawal MD 11/15/2024 Treatment [facility], [address] [place] [address] Bernardo Doty MD End stage renal disease; Dependence on renal dialysis 11/11/2024 10:30 AM EDT Clinical Support [facility] - [facility] [address] [place] [address] Db Neumann MD Encounter for fitting and adjustment of vascular catheter [Z45.2] (Primary Dx); Chronic kidney disease, Stage V (HCC) [N18.5] 11/10/2024 Orders Only [facility] [address] [place] [address] Srinivas Agrawal MD 11/08/2024 Treatment [facility], [address] [place] [address] Bernardo Doty MD End stage renal disease; [...] Sign Reading Time Taken Comments Blood Pressure 178/98 01/26/2025 9:42 AM EDT Pulse 76 01/26/2025 9:42 AM EDT Temperature 36.3 C (97.4 F) 02/04/2024 9:55 AM EDT Respiratory Rate - - Oxygen Saturation 95% 01/26/2025 9:42 AM EDT Inhaled Oxygen Concentration - - [...] [facility] Access Center [address] [place] [address] [place] [address] 07/12/2025 1:00 PM EDT Scheduled Only [facility] [address] [place] [address] [place] [address] Health Maintenance Due Date Last Done Comments [...] Procedure Name Priority Date/Time Associated Diagnosis Comments [facility] RESULTS Routine 01/21/2025 HEMATOLOGY Routine 12/29/2024 [facility] RESULTS [...] 11/24/2024 HEMATOLOGY Routine 11/17/2024 HEMATOLOGY Routine 11/10/2024 SPECIAL CHEMISTRY Routine 10/06/2024 from Last 3 Months or Most Recently Relevant to Health Maintenance Results * [facility] Lab Results (01/21/2025) Only the most recent of5 resultswithin the time period is included. eKt/V (Tattersall) 1.38 [facility] spKt/V (Daugirdas II) 1.62 [facility] eKdrt/V 1.39 [facility] WSTDKT/V 1.6 [facility] [place] spKt/V Gotch 1.64 [facility] PCR 65.15 [facility] nPCR_HD 1.01 [facility] eNPCR 0.94 [facility] eKt/V Gotch 1.39 [facility] 01/21/2025 01/21/2025 Ivet Ordering Provider LAB BLOOD ORDERABLES Final Result [facility] Contact Performing lab Unknown, [place] * (ABNORMAL) HEMATOLOGY (12/29/2024) Only the most recent of8 resultswithin the time period is included. Hemoglobin 9.8(L) 12.0 - 16.0 g/dL [facility] Hemoglobin x 3 29.4(L) 36.0 - 48.0 % [facility] 12/29/2024 12/30/2024 9:3 2 AM EDT Narrative [facility] - 12/30/2024 Unless otherwise specified, test(s) performed at: [facility] [address] [place], [place] [id number] SALES AND SERVICE SPECIALIST: Dwayne Fuentes M.D. For any questions, please call customer service at FREQUENCY:OTHER Resulting Agency Comment Specimen source: Blood Result [facility] Sirnivas Agrawal MD LAB BLOOD ORDERABLES Final Result Performing Organization Address [facility] Co de Phone Number [facility] See order comments or contact performing lab Unknown, [place] * HD KINETICS (12/22/2024) Only the most recent of4 resultswithin the time period is included. % Urea Reduction 73 65 - 80 % [facility] 12/22/2024 12/23/2024 1:2 8 PM EDT Narrative [facility] - 12/24/2024 Unless otherwise specified, test(s) performed at: [facility] [address] [place] [address] SALES AND SERVICE SPECIALIST: Dwayne Fuentes M.D. For any questions, please call customer service at FREQUENCY:OTHER Resulting Agency Comment Specimen source: Plasma Result [facility] Srinivas Agrawal MD LAB BLOOD ORDERABLES Final Result Performing Organization Address [facility] de Phone Number [facility] See order comments or contact performing lab Unknown, [place] * POST CHEMISTRY (12/22/2024) Only the most recent of4 resultswithin the time period is included. BUN Post Dialysis 11 6 - 19 mg/dL [facility] 12/22/2024 12/23/2024 1:2 8 PM EDT Narrative [facility] - 12/23/2024 Unless otherwise specified, test(s) performed at: [facility] [address] [place] [address] SALES AND SERVICE SPECIALIST: Dwayne Fuentes M.D. For any questions, please call customer service at FREQUENCY:OTHER Resulting Agency Comment Specimen source: Plasma Srinivas Agrawal MD LAB BLOOD ORDERABLES Final Result Performing Organization Address [facility] de Phone Number [facility] See order comments or contact performing lab Unknown, [place] * (ABNORMAL) [facility] Chemistry (12/22/2024) Only the most recent of7 resultswithin the time period is included. Pathologist [facility] BUN 40(H) 6 - 19 mg/dL [facility] 12/22/2024 12/23/2024 9:4 0 AM EDT Narrative [facility] - 12/24/2024 Unless otherwise specified, test(s) performed at: [facility] [address] [place] [id number] SALES AND SERVICE SPECIALIST: Dwayne Fuentes M.D. For any questions, please call customer service at FREQUENCY:OTHER Resulting Agency Comment Specimen source: Serum Srinivas Agrawal MD LAB BLOOD ORDERABLES Final Result Performing Organization Address [facility] de Phone Number [facility] See order comments or contact performing lab Unknown, [place] * IMMUNO CHEMISTRY (12/08/2024) Hep B Surface Ag Negative Negative [facility] 12/08/2024 12/09/2024 8:2 1 AM EDT Narrative [facility] - 12/09/2024 Unless otherwise specified, test(s) performed at: [facility] [address] SALES AND SERVICE SPECIALIST: Dwayne Fuentes M.D. For any questions, please call customer service at FREQUENCY:MONTHLY Resulting Agency Comment Specimen source: Serum Srinivas Agrawal MD LAB BLOOD ORDERABLES Final Result Performing Organization Address [facility] de Phone Number [facility] See order comments or contact performing lab Unknown, [place] * (ABNORMAL) SPECIAL CHEMISTRY (10/06/2024) Hemoglobin A1C 6.1(H) 4.8 - 5.9 % [facility] 10/06/2024 10/07/2024 11: 36 AM EDT Narrative [facility] - 10/08/2024 Unless otherwise specified, test(s) performed at: [facility] [address] [place] [phone] SALES AND SERVICE SPECIALIST: Dwayne Fuentes M.D. For any questions, please call customer service at FREQUENCY:MONTHLY Resulting Agency Comment Specimen source: Blood Srinivas Agrawal MD LAB BLOOD BANK TEST ORDERA BLES Final Result Performing Organization Address [facility] de Phone Number [facility] See order comments or contact performing lab Unknown, [place] from Last 3 Months or Most Recently Relevant to Health Maintenance Insurance Medicare Medicare [facility] Care Teams Registered Nurse Behavioral Health Relationship Specialty Start Date End Date Marita Wetzel DO [address] [place] [address] PCP - General Family Medicine 11/14/22
--- OUTSIDE RECORDS SUMMARY | 2025-02-07 21:07 | XMS_ITS | Encounter Summary ---
Author Organization [facility] Address [address] [place] [address] Phone Care Team Providers Care Consumer Services Consultant Name Role Phone aMrita Wetzel DO Primary Care Provider Unava ilable Encounter Details Date Type Department Care Team (Late st Contact Info) Description 08/28/2023 Documentation Only [facility] [address] [place] [address] [place], [place], [place] [address] [place] [phone] Social History Tobacco Use Types Packs/Day Years [...] [facility] [address] [place] [phone] 07/12/2025 1:00 PM EDT Scheduled Only [facility] Center [address] [place] [phone] documented as of this encounter Visit Diagnoses Not on filedocumented in this encounter Care Teams Consumer Services Consultant Relationship Specialty Start Date End Date Marita Wetzel DO [address] [place] [address] PCP - General Family Medicine 11/14/22 documented as of this encounter
--- OUTSIDE RECORDS SUMMARY | 2025-02-07 21:07 | XMS_ITS | Encounter Summary ---
Author Organization [facility] Address [address] [place] [address] Phone Care Team Providers Care Product Info Specialist Name Role Phone Marita Wetzel DO Primary Care Provider Unava ilable Encounter Details Date Type Department Care Team (Late st Contact Info) Description 06/14/2022 Documentation Only [facility] [address] [place] [phone] Candace Adam PA [address] [place] [address] [place] [phone] Social History Tobacco Use Types Packs/Day Years [...] [facility] Vascular Access [address] [place] [phone] 07/12/2025 1:00 PM EDT Scheduled Only [facility] Vascular Access [address] [place] [phone] documented as of this encounter Visit Diagnoses Not on filedocumented in this encounter Care Teams Product Info Specialist Relationship Specialty Start Date End Date Marita Wetzel DO [address] [place] [address] PCP - General Family Medicine 11/14/22 documented as of this encounter
--- OUTSIDE RECORDS SUMMARY | 2025-02-07 21:07 | XMS_ITS | Encounter Summary ---
Author Organization [facility] Address [address] [place] [address] Phone Care Team Providers Care Director Of Regional Sales Name Role Phone Marita Wetzel DO Primary Care Provider Unava ilable Encounter Details Date Type Department Care Team (Late st Contact Info) Description 07/04/2023 Documentation Only [facility] [address] [place] [phone] Pauline Aguayo [address] [place] [address] Social History Tobacco Use Types [...] Support [facility] Center [address] [place] [address] 07/12/2025 1:00 PM EDT Scheduled Only [facility] [address] [place] [address] documented as of this encounter Visit Diagnoses Not on filedocumented in this encounter Care Teams Director Of Regional Sales Relationship Specialty Start Date End Date Marita Wetzel DO [address] [place] [address] PCP - General Family Medicine 11/14/22 documented as of this encounter
[2025-02-07 22:00] VITALS: BP 172/83; PULSE 60; RESP 16; TEMP 36.5; O2SAT 100
[2025-02-07 22:10] VITALS: BP 172/83; PULSE 60; RESP 16; TEMP 36.5; O2SAT 100
== END 2025-02-07 22:10 | disposition home or self-care (01) ==
PROVIDERS: Physician Assistant; Emergency Provider Emergency Medicine Emergency Medical Services; PCP Family Medicine
DX: M25.552 Pain in left hip (principal); E11.9 Type 2 diabetes mellitus without complications; Z79.899 Other long term (current) drug therapy; Z79.4 Long term (current) use of insulin
CPT/HCPCS: 36415; 73502; 73700; 80053; 85025; 99284

== ENCOUNTER → 2025-02-07 16:58 | Outpatient (BNV) | payer MEDICARE, OTHER, SELFPAY | PROVIDERS: PCP Family Medicine; Visit Provider Radiology Diagnostic Radiology | DX: Z03.89 Encounter for observation for other suspected diseases and conditions ruled out (principal); Z96.642 Presence of left artificial hip joint | CPT/HCPCS: 73502; 73700 ==

== ENCOUNTER 2025-03-07 12:25 | Observation (INO) | payer MEDICARE, OTHER, SELFPAY ==
--- NOTE | ~2025-03-07 | XR_ITS ---
CLINICAL HISTORY: pain left hip --- Additional Notes or Special Instructions: PT IN DIALYSIS PER RN @1805--CM 3 view, pelvis and left hip Comparison: CT/SR - CT HIP LT WO IV CON - 02/07/25 20:37 EDT CR - XR HIP LT W PEL1V - 02/07/25 17:34 EDT Findings: No acute fracture or dislocation. Interval removal of fixation screws with 1 screw remaining. Remote impacted fracture of the left humeral neck. Atherosclerotic calcifications. No focal soft tissue abnormality. IMPRESSION: Compared to 02/07/2025, interval removal of left hip fixation screws with 1 screw remaining. Stable alignment of remote left humeral neck fracture. This document has been electronically signed by: Maryanne Mccray MD on 03/07/2025 22:27:43
--- NOTE | ~2025-03-07 | XR_ITS ---
EXAMINATION: XR CHEST CLINICAL INFORMATION: generalized weakness COMPARISON: August 24, 2024. TECHNIQUE: AP view of the chest was obtained. Portable. FINDINGS: Indistinct margins in the parietal regions and prominence of the interstitial markings. Small volume right-sided pleural effusion. No pneumothorax. Heart silhouette size appears prominent. Multilevel thoracolumbar spondylosis. Degenerative changes in the shoulders. Right-sided Port-A-Cath remains at the SVC/right atrium junction. There is a metallic stent in the proximal medial aspect of the left brachial region. . XR/XR chest 1V IMPRESSION: Mild interstitial lung edema in the correct clinical settings. Electronically signed by: Zay Calixto MD 03/07/2025 01:53 PM EST RP
--- NOTE | 2025-03-07 12:31 | ECG_ITS ---
Test Reason : WEAKNESS Blood Pressure : */* mmHG Vent. Rate : 64 BPM Atrial Rate : 64 BPM P-R Int : 200 ms QRS Dur : 80 ms QT Int : 430 ms P-R-T Axes : 61 -25 -10 degrees QTcB Int : 443 ms Normal sinus rhythm Minimal voltage criteria for LVH, may be normal variant ( Chin product ) Septal infarct (cited on or before 27-May-2024) Abnormal ECG When compared with ECG of 19-Jan-2025 12:10, No significant change was found Referred By: Jewels Diaz Electronically Signed By: JIMMIE MONTALVO
[2025-03-07 12:33] VITALS: BP 198/92; BP 211/96; PULSE 65; RESP 16; TEMP 36.5; O2SAT 100; BMI 23.1
--- NOTE | 2025-03-07 12:41 | ED.GENADULT ---
HPI - General Adult General Chief complaint: Weakness Stated complaint: WEAK,L HIP PAIN/SURG T-3D,MISSED DIALYSIS TODAY Time Seen by Provider: 03/07/25 12:30 Source: patient, family ( brother), EMS and old records reviewed Mode of arrival: EMS Limitations: no limitations History of Present Illness ED Provider: DR. Diaz HPI narrative: 64-year-old female PMHx end-stage renal disease on HD M/ W/ F, HTN, HLD, HFrEF, T2 DM, GERD, brought in by ambulance for evaluation of generalized weakness and severe left hip pain after placing screws in the left hip 4 days ago. patient missed her dialysis today secondary to generalized weakness and severe left hip pain after placing screws in the left hip. No fever, no chills, no CP, no SOB. Related Data Home Medications ?Medication ?Instructions ?Recorded ?Confirmed acetaminophen 325 mg tablet 650 mg PO Q6H PRN Fever 04/07/24 03/07/25 carvedilol 25 mg tablet 25 mg PO BID 04/07/24 03/07/25 omeprazole 20 mg capsule,delayed 20 mg PO DAILY@0630 03/07/25 03/07/25 release prednisone 5 mg tablet 5 mg PO DAILY 03/07/25 03/07/25 sevelamer carbonate 800 mg tablet 800 mg PO TID 03/07/25 03/07/25 Previous Rx's ?Medication ?Instructions ?Recorded ondansetron 4 mg disintegrating 4 mg PO Q8H PRN nausea and 01/19/25 tablet vomiting #4 tabs Allergies Allergy/AdvReac Type Severity Reaction Status Date / Time codeine (CODEINE) Allergy Intermediate Hives and Verified 03/07/25 12:37 pruritus oxycodone (OXYCODONE) Allergy Intermediate HIVES Verified 03/07/25 12:37 Review of Systems Review of Systems: all other systems are reviewed and are negative Constitutional: Reports as per HPI and Reports no additional constitutional complaints Eyes: Reports as per HPI and Reports no additional eye complaints Reports system reviewed and no additional complaints, except as documented Cardiovascular: Reports as per HPI and Reports no additional cardiovascular complaints Respiratory: Reports as per HPI and Reports no additional respiratory complaints Gastrointestinal: Reports as per HPI and Reports no additional gastrointestinal complaints Genitourinary: Reports no additional female genitourinary complaints Musculoskeletal: Reports no additional musculoskeletal complaints Skin/Breast: Reports system reviewed and no additional complaints, except as docu Psychiatric: Reports no additional psychiatric complaints Endocrine: Reports no additional endocrine complaints Hematologic/Lymphatic: Reports no additional hematologic/lymphatic complaints Allergic/Immunologic: Reports no additional allergic/immunologic complaints Reports system reviewed and no additional complaints, except as documented and Reports Abnormal speech present [facility] Past Medical History Medical History Pneumonia, community acquired Hyperkalemia Acute hyperglycemia HTN (hypertension) Mood disorder 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 Mother CHF (congestive heart failure) Social History Social History Household Members: Spouse Housing: House Do you presently have visiting nurse or other home services: Yes Alcohol intake: never Comment: patient is bedbound at this time Patient Tobacco Use Status: Never used Tobacco Advance Directives: Yes Advance Directives on File: Yes Advance Directives Date on File: 04/07/24 Do you have a plan to hurt others: No Plan service: Yes Physical Exam ED Vital Signs: Vital Signs - 24 hr 03/07/25 12:33 03/07/25 16:15 03/07/25 16:20 Temperature 97.7 F Pulse Rate 65 67 Respiratory Rate 16 16 Blood Pressure 198/92 H 188/86 H 188/86 H Pulse Oximetry 100 100 Oxygen Delivery Method Room Air Room Air BMI result Body Mass Index 23.1 Vital signs have been reviewed and appear to be correct. Blood pressure elevated. Heart rate normal. Respiratory rate normal. Temperature normal. Oxygen saturation normal. Appearance: Alert. Oriented X3. No acute distress. Head: Normal external exam. Normocephalic. Atraumatic. No Alas signs noted. No raccoon eyes noted Eyes: PERRLA. EOMI. Conjunctiva and sclera normal. Eyelids normal. ENT: TM's Normal. Pharynx normal. Uvula midline. Moist mucous membranes. No trismus noted. No drooling noted. No muffled voice noted. Neck: Normal inspection. Neck supple. FROM. No adenopathy. Thyroid Normal. No meningeal signs. No neck mass noted. CVS: Normal heart rate and rhythm. Heart sound normal. No murmurs noted. Pulses normal throughout. Respiratory: No respiratory distress. Painless inspiration. Breath sounds normal. No wheezes/rales/rhonchi noted. Chest nontender. No accessory muscle usage noted or decreased air movement noted. Abdomen: Soft and nontender. Bowel sounds normal in all 4 quadrants. No distention noted. No organomegaly noted. No visible injury noted. Back: No CVA tenderness. Full range of motion noted. Skin: Skin warm and dry. Normal skin color. Normal skin turgor. No rashes/lesions/lacerations noted. Extremities: No lower extremity edema. Extremities exhibit normal range of motion. Extremities nontender. Neuro: Oriented X 3. Cranial nerve exam: II-XII are grossly intact No motor deficit. No sensory deficit. Reflexes normal. Course Reevaluation(s) Reevaluation #1: fluid overload due for dialysis case discussed with Dr. Clarke who will dialyzed when admitted to the hospital. Patient makes a small amount of urine unable to collect sample to rule out UTI. Time: 15:13 Medications Administered Generic Name Dose Route Start Last Admin Trade Name Freq PRN Reason Stop Dose Admin Morphine Sulfate 2 mg 03/07/25 16:17 03/07/25 16:25 Morphine Sulfate 4 Mg/Ml Cartridge IVPUSH 2 mg Q4H PRN Administration Pain, Severe (Pain Scale 7-10) Protocol Discontinued Medications Generic Name Dose Route Start Last Admin Trade Name Freq PRN Reason Stop Dose Admin Hydralazine HCl 5 mg 03/07/25 16:12 03/07/25 16:20 Hydralazine Hcl 20 Mg/Ml Vial IVPUSH 03/07/25 16:13 5 mg ONCE ONE Administration Protocol Medical Decision Making Differential Diagnosis Differential Diagnoses: The differential diagnosis associated with the presentation includes ( Electrolyte derangement, dehydration, volume overload, severe anemia, infection.) Admission/Observation Consideration of admission/observation: Escalation of care including admission/observation considered Lab Data MDM Lab Attestation statement: I reviewed the patient's lab results. 03/07/25 12:59 03/07/25 14:07 Labs: Lab Results 03/07/25 03/07/25 03/07/25 Range/Units 12:59 14:07 16:17 WBC 4.4 L (4.8-10.8) X10*3/uL RBC 4.71 (4.20-5.50) X10*6/uL Hgb 12.7 D (12.0-16.0) g/dl Hct 43.3 D (37.0-47.0) % MCV 91.9 (80.0-98.0) fL MCH 27.0 (27.0-33.0) pg MCHC 29.3 L (31.0-35.0) g/dl RDW 17.9 H (11.0-16.0) % Plt Count 158 L (160-400) X10*3/uL MPV 9.8 (9.4-12.3) fL Immature Gran % (Auto) 0.2 (0.0-0.4) % Neut % (Auto) 71.9 (45-73) % Lymph % (Auto) 17.9 L (20-40) % [place] % (Auto) 8.9 (2-11) % Eos % (Auto) 0.9 (0-4) % Baso % (Auto) 0.2 (0-2) % Lymph # (Auto) 0.8 L (1.2-4.9) X10*3/uL [place] # (Auto) 0.4 (0.1-1.2) X10*3/uL Eos # (Auto) 0.0 (0.0-0.4) X10*3/uL Baso # (Auto) 0.0 (0.0-0.2) X10*3/uL Abs Immat Gran (auto) 0.01 (0.00-0.03) X10*3/uL Absolute Neuts (auto) 3.1 (2.0-8.3) x10*3/uL Absolute Nucleated RBC 0.000 (0.0-0.012) X10*3/uL Nucleated RBC % (auto) 0.0 (0.0-0.2) /100WBC Sodium 136 (135-145) mmol/L Potassium 4.1 (3.3-5.1) mmol/L Chloride 98 (96-108) mmol/L Carbon Dioxide 24 (22-29) mmol/L Anion Gap 18 (12-20) BUN 51 H (9-16) mg/dL Creatinine 6.20 H* (0.5-1.4) mg/dL Estim Creat Clear Calc 8.8 Estimated GFR 7 Random Glucose 182 H (60-115) mg/dL Lactic Acid 1.5 (0.5-2.0) mmol/L Calcium 9.1 (8.4-10.2) mg/dL Total Bilirubin 0.6 (0.0-1.0) mg/dL Direct Bilirubin 0.3 (0.0-0.5) mg/dL AST 12 (5-31) U/L ALT < 6 (0-31) U/L Alkaline Phosphatase 124 H (39-117) U/L Troponin I High Sens 19.0 H (<3.5-17.0) ng/L Total Protein 8.2 H (6.5-8.0) g/dL Albumin 3.5 (3.5-5.0) g/dL Lipase 5 L (8-78) U/L Urine Color Yellow Urine Appearance Turbid Urine pH 7.5 (5.0-9.0) Ur Specific [place] 1.015 (1.005-1.025) Urine Protein 300 (3+) H (Neg-Trace) mg/dL Urine Glucose (UA) 100 H (Negative) mg/dL Urine Ketones Negative (Negative) mg/dL Urine Blood Large (3+) H (Negative) Urine Nitrite Positive H (Negative) Ur Leukocyte Esterase Moderate (2+) H (Negative) Urine RBC 3-5 H (0-2) /HPF Urine WBC >50 (0-5) /HPF Ur Squamous Epith Cells 3-5 (0-2) /HPF Urine Bacteria 2+ (None Seen) Hyaline Casts 0-2 (0-2) /LPF Influenza Type A (PCR) NEGATIVE (Negative) Influenza Type B (PCR) NEGATIVE (Negative) RSV RNA Qual (PCR) NEGATIVE (Negative) SARS-CoV-2 RNA (RT-PCR) NEGATIVE (Negative) Independent Interpretation I performed an independent interpretation of an: Plain X-Ray ( Chest:Mild interstitial lung edema in the correct clinical settings. ) Radiology Impression Discussion of test interpretation with radiology: I have reviewed the radiologist's reading. Discharge Plan Discharge Clinical Impression: Fluid overload Patient Disposition: Admitted As Inpatient
[2025-03-07 13:09] LABS: MANUAL DIFF FLAG NO
[2025-03-07 13:11] LABS: Hematocrit 43.3 % (37.0-47.0); Hemoglobin 12.7 g/dl (12.0-16.0); Imm Gran Abs Auto 0.01 X10*3/uL (0.00-0.03); Imm Gran Pct Auto 0.2 % (0.0-0.4); Lymphocytes Absolute Auto 0.8 X10*3/uL (1.2-4.9); Mean Corpuscular HGB Conc 29.3 g/dl (31.0-35.0); Mean Corpuscular Hemoglobin 27.0 pg (27.0-33.0); Mean Corpuscular Volume 91.9 fL (80.0-98.0); NRBC Abs Auto 0.000 X10*3/uL (0.0-0.012); NRBC Pct Auto 0.0 /100WBC (0.0-0.2); Platelet Count 158 X10*3/uL (160-400); Red Blood Count 4.71 X10*6/uL (4.20-5.50); White Blood Count 4.4 X10*3/uL (4.8-10.8)
[2025-03-07 13:31] LABS: Troponin-I High Sensitivity 19.0 ng/L (<3.5-17.0)
[2025-03-07 13:43] LABS: Resp Syncy Virus RNA Qual PCR NEGATIVE (Negative); SARS COV2 PCR INHOUSE NEGATIVE (Negative)
[2025-03-07 14:39] LABS: Alanine Aminotransferase < 6 U/L (0-31); Albumin Level 3.5 g/dL (3.5-5.0); Alkaline Phosphatase 124 U/L (39-117); Anion Gap 18 (12-20); Aspartate Amino Transferase 12 U/L (5-31); Blood Urea Nitrogen 51 mg/dL (9-16); Calcium 9.1 mg/dL (8.4-10.2); Carbon Dioxide 24 mmol/L (22-29); Chloride 98 mmol/L (96-108); Creatinine Clr Calc Pharmacy 8.8; Estimated Glomerular Filt Rate 7; Lipase 5 U/L (8-78); Potassium 4.1 mmol/L (3.3-5.1); Sodium 136 mmol/L (135-145); Total Protein 8.2 g/dL (6.5-8.0)
--- NOTE | 2025-03-07 15:54 | PM.IMHP ---
History of Present Illness Date of Service: 03/07/25 Chief Complaint: weakness 64 year old women presenting after missed dialysis because of weakness, dizziness and inability to walk. She stated that she had hip revision surgery last ([place] [facility] [place] and she has been unable to walk since then. She also reported that she woke up with dizziness. She denied and LOC, falls, fever, chills, recent illness. Creatinine 6.20. Patient denies any chest pain, shortness breath, nausea, vomiting, diarrhea. She just reported that she has had a lot of pain and was unable to walk after the surgical procedure to her hip. Plan will be to admit patient for dialysis and physical therapy for hip pain and inability to ambulate. 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) Kidney transplant status History of appendectomy H/O cardiac catheterization Social History Household Members: Spouse Housing: House Do you presently have visiting nurse or other home services: Yes Alcohol intake: never Comment: patient is bedbound at this time Patient Tobacco Use Status: Never used Tobacco Advance Directives: Yes Advance Directives on File: Yes Advance Directives Date on File: 04/07/24 Do you have a plan to hurt others: No Plan service: Yes Meds Allergies Allergy/AdvReac Type Severity Reaction Status Date / Time codeine (CODEINE) Allergy Intermediate Hives and Verified 03/07/25 12:37 pruritus oxycodone (OXYCODONE) Allergy Intermediate HIVES Verified 03/07/25 12:37 Home Medications ?Medication ?Instructions ?Recorded ?Confirmed ?Last Taken ?Type acetaminophen 325 mg tablet 650 mg PO Q6H PRN Fever 04/07/24 05/28/24 Unknown History carvedilol 25 mg tablet 25 mg PO BID 04/07/24 05/28/24 Unknown History insulin lispro 200 unit/mL (3 mL) 2 - 10 sliding scale dose subcut 04/07/24 05/28/24 Unknown History subcutaneous pen TID hydrocodone 5 mg-acetaminophen 325 1 tab PO Q6H 03/07/25 Unknown History mg tablet hydromorphone 2 mg tablet 2 mg PO QID 03/07/25 Unknown History insulin glargine 100 unit/mL (3 8 unit subcut QAM 03/07/25 Unknown History mL) subcutaneous pen (Lantus Solostar U-100 Insulin) omeprazole 20 mg capsule,delayed 20 mg PO DAILY 03/07/25 Unknown History release prednisone 5 mg tablet 5 mg PO DAILY 03/07/25 Unknown History sevelamer carbonate 800 mg tablet 800 mg PO TID 03/07/25 Unknown History Physical Exam Vital Signs and Narrative: Vital Signs: Last Vital Signs Temp 97.7 F 03/07/25 12:33 Pulse 65 03/07/25 12:33 Resp 16 03/07/25 12:33 BP 198/92 H 03/07/25 12:33 Pulse Ox 100 03/07/25 12:33 O2 Del Method Room Air 03/07/25 12:33 BMI result Body Mass Index 23.1 Appearing in no acute distress head is normocephalic atraumatic eyes pupils are PERRLA sclera is anicteric mouth throat mucous membranes are intact and moist neck is supple no lymphadenopathy, no JVD noted lung sounds are clear to auscultation heart regular rate rhythm, clear S1, S2 positive bowel sounds, abdomen is soft, nontender neuro patient is alert x3, no focal deficits Results Labs 03/07/25 12:59 03/07/25 14:07 Labs: Laboratory Results - last 24 hr 03/07/25 03/07/25 12:59 14:07 MCV 91.9 MCH 27.0 MCHC 29.3 L RDW 17.9 H Plt Count 158 L MPV 9.8 Immature Gran % (Auto) 0.2 Neut % (Auto) 71.9 Lymph % (Auto) 17.9 L [place] % (Auto) 8.9 Eos % (Auto) 0.9 Baso % (Auto) 0.2 Lymph # (Auto) 0.8 L [place] # (Auto) 0.4 Eos # (Auto) 0.0 Baso # (Auto) 0.0 Abs Immat Gran (auto) 0.01 Absolute Neuts (auto) 3.1 Absolute Nucleated RBC 0.000 Nucleated RBC % (auto) 0.0 Anion Gap 18 Estim Creat Clear Calc 8.8 Estimated GFR 7 Random Glucose 182 H Lactic Acid 1.5 Calcium 9.1 Total Bilirubin 0.6 Direct Bilirubin 0.3 AST 12 ALT < 6 Alkaline Phosphatase 124 H Troponin I High Sens 19.0 H Total Protein 8.2 H Albumin 3.5 Lipase 5 L Influenza Type A (PCR) NEGATIVE Influenza Type B (PCR) NEGATIVE RSV RNA Qual (PCR) NEGATIVE SARS-CoV-2 RNA (RT-PCR) NEGATIVE Imaging Radiologist's Impressions: Impressions Chest X-Ray 03/07/25 13:42 IMPRESSION: Mild interstitial lung edema in the correct clinical settings. Electronically signed by: Zay Calixto MD 03/07/2025 01:53 PM [facility] Assessment and Plan (1) HTN (hypertension): Status: Acute Plan 64 year women admitted do to missed dialysis, do to weakness and inability to ambulate. Missed dialysis, ESRD MWF Plan for dialysis today nephrology consultation Pain with ambulation recent hip revision [place] [facility] [place] unable to ambulate pain management PT consult Hypertension with elevated blood pressure readings could be IV hydralazine x1 then 10 mg TID scheduled monitor BP closely DM2 ss, ada diet HFpEF no excerbation DVT prophylaxis with heparin Full code Quality Stroke Does the patient have a stroke diagnosis?: No VTE Prior VTE?: No VTE Risk Level:: Medical - moderate - high VTE Device Contraindication: Treatment Not Indicated VTE Drug Contraindication: N/A - Med Ordered
[2025-03-07 16:15] VITALS: BP 188/86; PULSE 67; RESP 16; O2SAT 100
[2025-03-07 16:20] VITALS: BP 188/86
[2025-03-07 16:22] LABS: Appearance Urine Turbid; Glucose Urine UA 100 mg/dL (Negative); PH 7.5 (5.0-9.0); Specific Gravity - Urine 1.015 (1.005-1.025); UMIC TRIGGER UACC YES
--- NOTE | 2025-03-07 16:32 | PHA.MEDREC ---
Addendum entered by Herbert Guido PharmD 03/07/25 16:40: reviewed Original Note: Pharmacy Consult ? Medication Reconciliation Pharmacy has completed the medication reconciliation. Spoke with pt and she confirmed her medications. Pt confirmed she is only taking Carvedilol 25mg tabs 1 BID, Prednisone 5mg QD, Omeprazole 20mg daily PRN for acid reflux, Ondansetron 4mg as needed for nausea, Sevelamer Carbonate 800mg TID for her Kidneys and Tylenol 235mg x2 as needed for pain and nothing else at this time; I asked about the Insulin, inhalers and pain meds and pt states she stopped taking those herself awhile ago .
[2025-03-07 16:42] LABS: UACC Culture Trigger YES
--- NOTE | 2025-03-07 17:13 | HO.NURTONUR ---
Pt is a 64yo female who came to ED today for inc weakness, dizziness, inc left hip pain. Pt is a MWF HD patient. Last HD was on Friday. Last pt had left hip surgery. Inc pain to same. Pt is alert/oriented x4. FC. Hypertensive, given hydralazine in ED. Afebrile. Clear BBS. Pt does not make urine. Straight cath done and UA sent. MARISOL AVF. Pt has Rt PAC for poor vascular access however port is not accessed. 20g RFA USGIV placed.
[2025-03-07 20:00] VITALS: BP 180/72; PULSE 72; RESP 18; TEMP 36.3; O2SAT 100
[2025-03-07 21:28] VITALS: BP 180/72
[2025-03-07 23:34] VITALS: BP 176/74; PULSE 76; RESP 18; TEMP 36.3; O2SAT 98
--- OUTSIDE RECORDS SUMMARY | 2025-03-08 01:33 | XMS_ITS | Data Portability ---
Author Organization [facility], Main Office Address [address], [address] [place] [address] Care Team Providers Care Coding Specialist Name Role Phone PRIMITIVO CHRISTENSEN 2ND FLOOR OTHER CALEB STYLES Primary Care Provider [phone] Assessment Encounter Date Assessment Date Assessment LastModified [...] Details Recorded Time Gastrostomy tube in situ 665822662 Active 2022 SENIA PEÑA NP [address] , [address], [place], [address], [facility] [email or web address] 3 14:53:19 Type 2 diabetes mellitus 61400105 Active 2022 SENIA PEÑA NP [address], [address], [place], [address], [facility] [email or web address] 3 14:53:33 Essential hypertension 38869378 Active 2022 SENIA PEÑA NP [address], [address], [place], [address], [facility] [email or web address] 3 14:54:14 Hiccoughs 19934998 Active 2022 SENIA PEÑA NP [address], [address], [place], [address], [email or web address] 3 14:54:22 Anemia 315643135 Active 2022 SENIA PEÑA NP [address], [address], [place], [address], [email or web address] 3 14:54:39 Gastroesophage al reflux disease without esophagitis 387249110 Active 2022 SENIA PEÑA NP [address], [address], [place], [address], [email or web address] 3 14:56:54 Adult failure to thrive syndrome 246329872 Active 2022 SENIA PEÑA NP [address] [facility], [address], [place], [address], [email or web address] 3 14:57:30 Asthenia 50819664 Active 2022 SENIA PEÑA NP [address] [facility], [address], [place], [address], [email or web address] 3 14:57:41 Transplant of kidney Active 2022 SENIA PEÑA NP [address] [facility], [address], [place], [address], [email or web address] 3 15:20:19 Immunosuppress tracy therapy Active 2022 SENIA PEÑA NP [address] [facility], [address], [place], [address], [email or web address] 3 15:20:30 Problem Notes None recorded. Medical Equipment None Reported. Allergies Allergen ID Allergen Name Allergen Category Reaction Reaction Severity Criticality Documentation Date Start Date Code Code System Note Provider Name and Address Organization Details Recorded Time 81924 codeine medicatio n Not available Not available Not available 02/18/2023 2670 RxNorm SENIA PEÑA, EPIFANIO [address], [address], [place], [address], [email or web address] 3 14:52:51 80980 oxycodone medicatio n Not available Not available Not available 02/18/2023 7804 RxNorm SENIA PEÑA NP [address] [facility], [address], [place], [address], [email or web address] 3 14:52:58 Medications Name Sig Start [...] % 153/61 mm[Hg] SENIA PEÑA NP [address] [facility], [address], [place], [address], [email or web address] 3 14:58:05 Date Recorded Heart rate Respiratory rate Body temperature Oxygen saturation Oxygen saturation in Arterial blood by Pulse oximetry Systolic And Diastolic Provider Name and Address Organization Details Last Updated DateTime 3 58 /min 16 /min 99 [degF] 95 % 95 % 160/74 mm[Hg] SENIA PEÑA NP [address] [facility], [address], [place], [address], [email or web address] 3 11:17:13 Date Recorded Body height Body mass index (BMI) Body weight Heart rate Respiratory rate Body temperature Oxygen saturation Oxygen saturation in Arterial blood by Pulse oximetry Systolic And Diastolic Provider Name and Address Organization Details Last Updated DateTime 3 167.64 cm 22 kg/m2 99955.5 6 g 80 /min 20 /min 97.5 [degF] 96 % 96 % 128/70 mm[Hg] Aidee Garcia MD [address] [facility], [address], [place], [address], [email or web address] 3 15:16:07 Date Recorded Body height Heart rate Respiratory rate Body temperature Oxygen saturation Oxygen saturation in Arterial blood by Pulse oximetry Systolic And Diastolic Provider Name and Address Organization Details Last Updated DateTime 3 167.64 cm 78 /min 16 /min 97.5 [degF] 97 % 97 % 122/68 mm[Hg] SENIA PEÑA NP [address] [facility], [address], [place], [address], [email or web address] 3 15:15:05 Social History Question Answer Notes LastModified by Organizat ion Details LastModified Time Tobacco Smoking Status Never Smoker SENIA PEÑA, EPIFANIO [address] [facility], [address], [place], [address], [email or web address] 02/18/2023 14:55:18 Do You Have An Advance Directive? Yes Information not available 02/19/2023 What Is Your Code Status? Full Code Information not available 02/19/2023 Where Do You Live? MultiLevelHouse Home With , Many Stairs Information not available 02/20/2023 Legal Guardian? No Informati on not available 02/20/2023 Do You Have A Medical Power Of Price Checker? Yes Information not available 02/20/2023 What Was [...] adjuvanted, quadrivalent, PF 01/23/2022 completed Thania bonner, [facility] [email or web address] 06/18/2023 12:05:05 Influenza, adjuvanted, quadrivalent, PF 02/26/2023 [facility] 12:05:39 Past Encounters Encounter ID Performer Location Encounter Start Date Encounter Closed Date Diagnosis/Indication Diagnosis SNOMED-CT Code Diagnosis ICD10 Code Diagnosis IMO Codes Diagnosis Note [id number] SENIA PEÑA NP [address] [address] 02/18/2023 14:50:00 02/21/2023 16:14:24 Adult failure to thrive syndrome 041444827 R62.7 GTdental soft, thin liquidswei ghts daily Gastrostom y tube in situ 817975687 Z93.1 flush with water qshift and after medspancre aleptase 10,500 q5 mg for clogged Gtsodium bicarb 650 mg for clogged GT Gastroesop hageal reflux disease without esophagitis 079754751 K21.9 lansoprazo le 30 mg bidprotoni x 40 mg bid Essential hypertension 90964671 I10 lisinopril 5 mg dailyamlod ipine 10 mg dailycoreg 25 mg bidmonitor bp Anemia 650663925 D64.9 cyancobala min 1000 dailyfolic 1 mg dailythiam ine 100 mg dailyprocr it 20,000 qweekmonit or labs Type 2 michael betes mellitus 99522220 E11.9 glargine 15 units amlispro h9groehgwm r glucose Asthenia 06632699 R53.1 PT OT eval and treatfall precaution sfrequent safety checks Hiccoughs 90253016 R06.6 baclofen 5 mg tid prn Immunosupp ressive therapy 57650039 D84.9 myucopheno lic 180 4 tabs bidtacroli mus 7 daily [id number] SENIA PEÑA NP [facility] [address] [place] [address] 02/19/2023 11:16:30 02/21/2023 16:42:00 Gastrostomy tube in situ 150252725 Z93.1 FLUSH WITH WATER QSHIFT , BEFORE AND AFTER MEDSpancre aleptase 10,500 q5 mg for clogged Gtsodium bicarb 650 mg for clogged GT [id number] MD PRIMITIVO Torres [address] [place] [address] 02/20/2023 14:20:37 02/25/2023 10:42:34 Adult failure to thrive syndrome 626169090 R62.7 Improving since on supplement al feeds vis g-tube.Not on optimal feeding as not yet available. Currently on Osmolite 1.2 mariah @ 65 ml/hr, will be switching to Glucerna when available. Monitor wts and labs. Gastrostom y tube in situ 048977104 Z93.1 As above.Wate r flush q shift.Use pancrelipa se prn and NaHCO3 prn both for clogged tubeMonito r function.C hange tube q 3 months with IR Gastroesop hageal reflux disease without esophagitis 397377235 K21.9 On meds prophylact ically due to G-tube.Unc lear if she's really supposed to be on both lansoprazo le and pantoprazo le, but for now will continue.C ontinue lansoprazo le 30 mg BID and pantoprazo le 40 mg BID.Monito r sxs. Essential hypertension 22721237 I10 Good control since here.Delilah nue lisinopril 5 mg qd, amlodipine 10 mg qd, and carvedilol 25 mg BID.Monito r BP and labs. Anemia 605713704 D63.1 Multifacto rial, but primarily due to CKD.Contin ue cyancobala min 1000 mcg qd, folic acid 1 mg qd, thiamine 100 mg qd and procrit 20,000 units qweek.Marycruz tor labsF/U with renal as planned. Type 2 michael betes mellitus 51015575 E11.9 Sugars very high since here, likely due to wrong tube feed being used.Gluce rna was just delivered, so will not change Lantus at this time.Delilah nue Lantus 15U qd qd and continue SSI.Contin ue fingerstic ks qid. Adjust meds as needed. Asthenia 46625693 R53.1 Very deconditio casi.Needs PT/OT for strengthen ing, balance, gait training, safety and function.C ontinue fall precaution s.Monitor for safety. Hawk 04653912 R06.6 Continue baclofen 5 mg TID prnMonitor sxs. End stage renal failure with renal transplant 572976806 Z94.0 N18.31 Had ESRD, now stage 3AAt baseline.N ot getting the right dose of tacrolimus since here, supposed to be 7 mg qd, but has only been getting 1 mg. Will correct.Co ntinue mycophenol ate 720 mg BID.Contin ue to avoid nephrotoxi c meds as able.Monit or labs.Renal f/u as planned. Infection of skin and/or subcutaneous tissue 88070762 L08.9 With early infection of g-tube site.Will start doxy 100 mg BID x 5 days with probiotic BID x 10 days.Empha size need to put gauze between flange and skin.Monit or. [id number] SENIA PEÑA NP [address] [place] [address] 02/24/2023 14:27:36 02/26/2023 13:13:22 Anemia 833758274 D63.1 cyancobala min 1000 dailyfolic 1 mg dailythiam ine 100 mg dailyprocr it 20,000 qweekmonit or labs Gastrostom y tube in situ 993655580 Z93.1 FLUSH WITH WATER QSHIFT , BEFORE AND AFTER MEDSpancre aleptase 10,500 q5 mg for clogged Gtsodium bicarb 650 mg for clogged GT Immunosupp ressive therapy 34374070 D84.9 myucopheno lic 180 4 tabs bidtacroli mus 7 mg daily Health Concerns Section Related Observation LastModified by Organization Detai ls LastModified Time None Recorded Concern Status LastModified by Organization Details LastModified Time None Recorded Advance Directives Directive Y: Payers Insurance Date Sequence Insurance Name Policy Number Policy Engle Covered Member ID Engle Member ID Guarantor Name 02/21/2023 1 MEDICARE [place]: [employer] [facility] [id number] [facility] 02/25/2023 2 FOR LIFE () [facility] [id number] [facility] Notes Date Note Type Note Provider Name [...] kidney injury. She was seen by her director of social media marketing earlier today and was referred for admission [...] discomfort or distress. SENIA PEÑA NP [address] [facility], [address], [place], [address], [email or web address] 02/18/2023 15:22:49 02/19/2023 text/html ROS as noted in the HPI seen today for acute rounding visit, CAOx3 sitting up in bed, GT was blocked, unable to initially flush or pull back, irrig with coca cola and will persistence was able to unclog the GT and it flushed well afterwards SENIA PEÑA NP [address] [facility], [address], [place], [address], [email or web address] 02/19/2023 11:20:46 02/20/2023 text/html This is a complicated 62 yo woman who is here for rehab after an acute hospitalization for FTT. She has had many hospitalizations over the past yr. Starting with kidney transplant in 02/2022 (on tacrolimus and mycophenolate). Most recently she was sent in for direct admission on 01/24, sent in by her director of social media marketing for poor po intake and wt. loss. [...] don't want to throw myself a pity republican, but it's been hard . She says she's already starting to feel much stronger.Her PMH includes HTN, hx of ESRD (had been on peritoneal dialysis) now s/p cadaver kidney transplant in 02/2022 on tacrolimus and mycophenolate, AODM, anemia, HLD, hx of carcinoid of appendix s/p resection, cholelithiasis, and FTT with g-tube for supplemental nutrition. Aidee Garcia MD [address] [facility], [address], [place], [address], [facility] 02/20/2023 21:24:33 02/24/2023 text/html ROS as noted in the HPI seen today for acute rounding visit-CAOx3 in bed, she is eating and drinking fairly well, GT remains intact, h/h down 6.2 will send to hospital for transfusion, she denies any discomfort or distress, lungs clear no edema SENIA PEÑA NP [address] [facility], [address], [place], [address], [facility] 02/24/2023 15:21:54 OBGyn Episode No OBEpisode recorded.
[2025-03-08 03:21] VITALS: BP 144/79; PULSE 71; RESP 18; TEMP 36.2; O2SAT 99
[2025-03-08 05:45] LABS: Hematocrit 41.5 % (37.0-47.0); Hemoglobin 12.1 g/dl (12.0-16.0); Mean Corpuscular HGB Conc 29.2 g/dl (31.0-35.0); Mean Corpuscular Hemoglobin 26.5 pg (27.0-33.0); Mean Corpuscular Volume 91.0 fL (80.0-98.0); NRBC Abs Auto 0.000 X10*3/uL (0.0-0.012); NRBC Pct Auto 0.0 /100WBC (0.0-0.2); Platelet Count 144 X10*3/uL (160-400); Red Blood Count 4.56 X10*6/uL (4.20-5.50); White Blood Count 4.5 X10*3/uL (4.8-10.8)
[2025-03-08 06:05] LABS: Anion Gap 17 (12-20); Blood Urea Nitrogen 29 mg/dL (9-16); Calcium 9.0 mg/dL (8.4-10.2); Carbon Dioxide 26 mmol/L (22-29); Chloride 98 mmol/L (96-108); Creatinine Clr Calc Pharmacy 12.1; Estimated Glomerular Filt Rate 10; Potassium 3.6 mmol/L (3.3-5.1); Sodium 137 mmol/L (135-145)
[2025-03-08 08:00] VITALS: BP 172/87; PULSE 66; RESP 16; TEMP 36.2; O2SAT 100
[2025-03-08 08:12] LABS: Glucose, Whole Blood 102 mg/dL (60-115)
[2025-03-08] MEDS: 0.9 % Sodium Chloride Flush 3 ML SYRINGE IVFLUSH (08:20)
--- NOTE | 2025-03-08 08:58 | MHC.CM.PN ---
Addendum entered by Shavonne Dahl RN 03/08/25 13:53: CM spoke w/ Sly who agrees to transport to HD moving forward and will work with HD SW to arrange transportation in the future if needed. Original Note: CHARANJIT 03/08/ DX hip pain s/p [place] [facility] and [place] Patient lives with spouse + son They assist with all functional mobility HD in [facility]. HD M-W-F spouse transports A referral has been sent to [facility]. 03/03 Hip surgery [place] [facility]. DP Home with [facility], spouse transport.
--- NOTE | 2025-03-08 11:25 | P.EN_ITS ---
Event Note Date of Service: 03/08/25 Event Note: Left hip s/p revision CRPP at [facility] 02/15/25 due to HW failure. Patient has been unable to ambulate sine DOS. She is admitted due to fluid overload. On dialysis. recommend patient remain NWB LLE and f/u with ortho at [facility] as this is not a new acute hip fx. Time Spent With Patient Time: Total time managing care of this patient today ____ minutes.
--- NOTE | 2025-03-08 11:25 | PM.EVENT ---
Event Note Date of Service: 03/08/25 Event Note: Left hip s/p revision CRPP at [facility] 02/15/25 due to HW failure. Patient has been unable to ambulate sine DOS. She is admitted due to fluid overload. On dialysis. recommend patient remain NWB LLE and f/u with ortho at [facility] as this is not a new acute hip fx. Time Spent With Patient Time: Total time managing care of this patient today ____ minutes.
--- NOTE | 2025-03-08 11:34 | PM.DS ---
DS: Providers Provider Date of Service: 03/08/25 Date of admission: 03/07/25 16:34 Date of discharge: 03/08/25 Primary care physician: Marita Wetzel DO Consults: 03/07/25 16:14 Consult to Nephrology Routine Consulting Provider: [facility] Reason for consultation: esrd 03/08/25 11:14 Consult to Orthopedics Routine Consulting Provider: [facility] Reason for consultation: recent hip sx,unable to walk Has provider been notified: No Attending physician on discharge: Nick Oglesby Discharging clinician: Nick Oglesby DS: Diagnosis Discharge Diagnosis (1) HTN (hypertension): Status: Acute DS: Summary Hospital Course Hospital Course: HPI:64 year old women presenting after missed dialysis because of weakness, dizziness and inability to walk. She stated that she had hip revision surgery last (last [facility] surgical note was 02/15/25) and she has been unable to walk since then. She also reported that she woke up with dizziness. She denied and LOC, falls, fever, chills, recent illness. Creatinine 6.20. Patient denies any chest pain, shortness breath, nausea, vomiting, diarrhea. She just reported that she has had a lot of pain and was unable to walk after the surgical procedure to her hip. Plan will be to admit patient for dialysis and physical therapy for hip pain and inability to ambulate. Hospital course: Patient was admitted to the hospital for missing dialysis, she also had recent surgery and did not walks in then: ESRD on hemodialysis: Received dialysis seems to be improved significantly. Denies any shortness of breath, no hypoxic.Patient was strongly advised to compliant with her dialysis. Recent hip surgery-not ambulating as per the patient, hip xray:Compared to 02/07/2025, interval removal of left hip fixation screws with 1 screw remaining. Stable alignment of remote left humeral neck fracture. d/w ortho : needs to follow up with [facility]. she can remain NWB LLE until eval by them. Patient is strongly advised to follow up with [facility] . plan: Patient was strongly advised to compliant with her dialysis. Follow-up with [facility] for recent hip surgery d/w therapeutic case manager ,family in detail-message sent to [employer], also spoke to the family they are going to take her to dialysis (so does not get Missed), also her vna and family will reach out to [facility] for the feeble-minded surgery. Above management discussed with the patient detail length she understand and in agreement with the above plan, time spent 45 minutes. Time Attestation Total time managing care of this patient today: 45 mintues. Discharge Coordination Time (in mins): 45 min Quality: Safe Use of Opioids Does Pt have an Active Cancer Diagnosis on the Problem List?: No Quality: Stroke Does the patient have a stroke diagnosis?: No Physical Exam Exam: Exam: Appearing in no acute distress lung sounds are clear to auscultation heart regular rate rhythm, clear S1, S2 positive bowel sounds, abdomen is soft, nontender neuro patient is alert x3, no focal deficits ext : moves ext ,has hip pain Vital Signs: Vital Signs: Last Vital Signs Temp 97.1 F 03/08/25 08:00 Pulse 66 03/08/25 08:00 Resp 16 03/08/25 08:00 BP 172/87 H 03/08/25 08:00 Pulse Ox 100 03/08/25 08:00 O2 Del Method Room Air 03/08/25 08:00 BMI result Body Mass Index 23.1 DS: Data Data Completed and Pending Completed studies during hospitalization [Text1]: Procedures Drainage of Right Pleural Cavity with Drainage Device, Percutaneous Approach (04/07/24) Drainage of Right Upper Leg Subcutaneous Tissue and Fascia, Open Approach (05/28/24) Performance of Urinary Filtration, Intermittent, Less than 6 Hours Per Day (05/28/24) Transfusion of Nonautologous Red Blood Cells into Peripheral Vein, Percutaneous Approach (05/28/24) Labs on day of discharge: Laboratory Results - last 24 hr 03/07/25 03/07/25 03/07/25 12:59 14:07 16:17 WBC 4.4 L RBC 4.71 Hgb 12.7 D Hct 43.3 D MCV 91.9 MCH 27.0 MCHC 29.3 L RDW 17.9 H Plt Count 158 L MPV 9.8 Immature Gran % (Auto) 0.2 Neut % (Auto) 71.9 Lymph % (Auto) 17.9 L [place] % (Auto) 8.9 Eos % (Auto) 0.9 Baso % (Auto) 0.2 Lymph # (Auto) 0.8 L [place] # (Auto) 0.4 Eos # (Auto) 0.0 Baso # (Auto) 0.0 Abs Immat Gran (auto) 0.01 Absolute Neuts (auto) 3.1 Absolute Nucleated RBC 0.000 Nucleated RBC % (auto) 0.0 Sodium 136 Potassium 4.1 Chloride 98 Carbon Dioxide 24 Anion Gap 18 BUN 51 H Creatinine 6.20 H* Estim Creat Clear Calc 8.8 Estimated GFR 7 POC Glucose Random Glucose 182 H Lactic Acid 1.5 Calcium 9.1 Total Bilirubin 0.6 Direct Bilirubin 0.3 AST 12 ALT < 6 Alkaline Phosphatase 124 H Troponin I High Sens 19.0 H Total Protein 8.2 H Albumin 3.5 Lipase 5 L Urine Color Yellow Urine Appearance Turbid Urine pH 7.5 Ur Specific [place] 1.015 Urine Protein 300 (3+) H Urine Glucose (UA) 100 H Urine Ketones Negative Urine Blood Large (3+) H Urine Nitrite Positive H Ur Leukocyte Esterase Moderate (2+) H Urine RBC 3-5 H Urine WBC >50 Ur Squamous Epith Cells 3-5 Urine Bacteria 2+ Hyaline Casts 0-2 Influenza Type A (PCR) NEGATIVE Influenza Type B (PCR) NEGATIVE RSV RNA Qual (PCR) NEGATIVE SARS-CoV-2 RNA (RT-PCR) NEGATIVE 03/08/25 03/08/25 05:20 07:17 WBC 4.5 L RBC 4.56 Hgb 12.1 Hct 41.5 MCV 91.0 MCH 26.5 L MCHC 29.2 L RDW 18.1 H Plt Count 144 L MPV 10.4 Immature Gran % (Auto) Neut % (Auto) Lymph % (Auto) [place] % (Auto) Eos % (Auto) Baso % (Auto) Lymph # (Auto) [place] # (Auto) Eos # (Auto) Baso # (Auto) Abs Immat Gran (auto) Absolute Neuts (auto) Absolute Nucleated RBC 0.000 Nucleated RBC % (auto) 0.0 Sodium 137 Potassium 3.6 Chloride 98 Carbon Dioxide 26 Anion Gap 17 BUN 29 H Creatinine 4.57 H* Estim Creat Clear Calc 12.1 Estimated GFR 10 POC Glucose 102 Random Glucose 115 Lactic Acid Calcium 9.0 Total Bilirubin Direct Bilirubin AST ALT Alkaline Phosphatase Troponin I High Sens Total Protein Albumin Lipase Urine Color Urine Appearance Urine pH Ur Specific [place] Urine Protein Urine Glucose (UA) Urine Ketones Urine Blood Urine Nitrite Ur Leukocyte Esterase Urine RBC Urine WBC Ur Squamous Epith Cells Urine Bacteria Hyaline Casts Influenza Type A (PCR) Influenza Type B (PCR) RSV RNA Qual (PCR) SARS-CoV-2 RNA (RT-PCR) Imaging Chest x-ray: Radiologist's impression: ITS Impressions Chest X-Ray 03/07/25 13:42 IMPRESSION: Mild interstitial lung edema in the correct clinical settings. Discharge Plan Discharge Anticipated Discharge Date/Time: 03/08/25 11:30 Patient Disposition: Home Health Service Discharge Diagnosis: esrd on hd , hip surgery Referrals: Marita Wetzel DO [Primary Care Provider, Internal Medicine] - 1 Week Discharge Medications: Continued ondansetron 4 mg tablet,disintegrating 4 mg PO Q8H PRN (Reason: nausea and vomiting) Qty: 4 0RF carvedilol 25 mg Tablet 25 mg PO BID Rx Instructions: must administer with a meal/food acetaminophen 325 mg Tablet 650 mg PO Q6H PRN (Reason: Fever) prednisone 5 mg tablet 5 mg PO DAILY omeprazole 20 mg capsule,delayed release(DR/EC) 20 mg PO DAILY@0630 sevelamer carbonate 800 mg tablet 800 mg PO TID Discharge Orders: Discharge Order (Routine); Ordered 03/08/25 Ordered By: Nick Oglesby Diet: Advance to usual diet Activity on Discharge: As tolerated Stand Alone Forms: Patient Portal Discharge page Print Language: Gibraltarian Care Plan Goals: ESRD on hemodialysis: Received dialysis seems to be improved significantly. Denies any shortness of breath, no hypoxic. Patient was strongly advised to compliant with her dialysis. Recent hip surgery-not ambulating as per the patient, d/w ortho : needs to follow up with [facility]. she can remain NWB LLE until eval by them. Health Concerns: As above. Plan of Treatment: As above. Assessment: As above.
[2025-03-08 11:52] LABS: Glucose, Whole Blood 215 mg/dL (60-115)
[2025-03-08 12:00] VITALS: BP 166/77; PULSE 64; RESP 17; TEMP 36.1; O2SAT 98
--- NOTE | 2025-03-08 12:24 | P.CONNP_ITS ---
History of Present Illness Reason for Consult Consult date: 03/08/25 Chief Complaint Chief complaint: WEAK,L HIP PAIN/SURG T-3D,MISSED DIALYSIS TODAY History of Present Illness Narrative: 64 year old women presenting after missed dialysis because of weakness, dizziness and inability to walk. She stated that she had hip revision surgery last (last [facility] [place] was 02/15/25) and she has been unable to walk since then. She also reported that she woke up with dizziness. She denied and LOC, falls, fever, chills, recent illness. Creatinine 6.20. Patient denies any chest pain, shortness breath, nausea, vomiting, diarrhea. She just reported that she has had a lot of pain and was unable to walk after the surgical procedure to her hip. Yesterday. 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) Kidney transplant status History of appendectomy H/O cardiac catheterization Social History Social History Household Members: Spouse Housing: House Do you presently have visiting nurse or other home services: Yes Alcohol intake: never Comment: patient is bedbound at this time Patient Tobacco Use Status: Never used Tobacco Currently Displaying Signs/Symptoms of Drug Intoxication Withdrawal: No Advance Directives: Yes Advance Directives on File: Yes Advance Directives Date on File: 04/07/24 Do you have a plan to hurt others: No Plan service: No Meds Allergies Allergy/AdvReac Type Severity Reaction Status Date / Time codeine (CODEINE) Allergy Intermediate Hives and Verified 03/07/25 12:37 pruritus oxycodone (OXYCODONE) Allergy Intermediate HIVES Verified 03/07/25 12:37 Active Medications: Current Medications Acetaminophen (Acetaminophen 325 Mg Tablet) 650 mg PO Q6H PRN PRN Reason: Pain, Mild 1-3,fever,headache Last Admin: 03/08/25 08:19 Dose: 650 mg Acetaminophen (Acetaminophen 325 Mg Tablet) 650 mg PO Q6H PRN PRN Reason: Fever Calcium Carbonate (Calcium Carbonate 750 Mg Tab.Chew) 750 mg PO Q4H PRN PRN Reason: Heartburn Carvedilol (Carvedilol 25 Mg Tablet) 25 mg PO BID [facility]; Protocol Last Admin: 03/08/25 11:57 Dose: 25 mg Dextrose (Dextrose 50 % 25 Gm/50 Ml Syringe) 25 gm IVPUSH Q15M PRN; Protocol PRN Reason: per Hypoglycemia Standing Ord. Glucose (Glucose Gel 15 Gm Gel..Gram.) 15 gm PO Q15M PRN; Protocol PRN Reason: per Hypoglycemia Standing Ord. Hydralazine HCl (Hydralazine Hcl 10 Mg Tablet) 10 mg PO TID [facility]; Protocol Last Admin: 03/08/25 08:19 Dose: 10 mg Magnesium Hydroxide (Milk Of Magnesia 30 Ml Oral.Susp) 30 ml PO DAILY PRN PRN Reason: Constipation Melatonin (Melatonin 3 Mg Tablet) 6 mg PO BEDTIME PRN PRN Reason: Insomnia Morphine Sulfate (Morphine Sulfate 4 Mg/Ml Cartridge) 2 mg IVPUSH Q4H PRN; Protocol PRN Reason: Pain, Severe (Pain Scale 7-10) Last Admin: 03/07/25 21:28 Dose: 2 mg Omeprazole (Omeprazole 20 Mg Capsule.Dr) 20 mg PO DAILY@0630 [facility] Last Admin: 03/08/25 11:57 Dose: 20 mg Ondansetron HCl (Ondansetron Hcl 4 Mg/2 Ml Vial) 4 mg IVPUSH Q8H PRN PRN Reason: Nausea and Vomiting Ondansetron HCl (Ondansetron Odt 4 Mg Tab.Rapdis) 4 mg TRANSLINGU Q8H PRN PRN Reason: Nausea and Vomiting Prednisone (Prednisone 5 Mg Tablet) 5 mg PO DAILY [facility] Last Admin: 03/08/25 11:57 Dose: 5 mg Sevelamer Carbonate (Sevelamer Carbonate Tablet 800 Mg Tablet) 800 mg PO TID [facility] Sodium Chloride (0.9 % Sodium Chloride Flush 3 Ml Syringe) 3 ml IVFLUSH QSHIFT [facility] Last Admin: 03/08/25 08:20 Dose: 3 ml Home Medications ?Medication ?Instructions ?Recorded ?Confirmed ?Last Taken ?Type acetaminophen 325 mg tablet 650 mg PO Q6H PRN Fever 03/07/25 Unknown History carvedilol 25 mg tablet 25 mg PO BID 04/07/2403/04/25 History omeprazole 20 mg capsule,delayed 20 mg PO DAILY@0630 1 05/07/24 03/07/25 Unknown History release prednisone 5 mg tablet 5 mg PO DAILY 03/07/2503/0703/04/25 History sevelamer carbonate 800 mg tablet 800 mg PO TID 03/07/25 03/04/25 History Physical Exam Vital Signs: Last Vital Signs Temp 97.1 F 03/08/25 08:00 Pulse 66 03/08/25 08:00 Resp 16 03/08/25 08:00 BP 172/87 H 03/08/25 08:00 Pulse Ox 100 03/08/25 08:00 O2 Del Method Room Air 03/08/25 08:00 BMI result Body Mass Index 23.1 Const General: ill appearing Neck Neck: Yes supple Resp Auscultation: clear to auscultation bilaterally Cardio Palpation: no palpable S3 Heart sounds: no rubs GI Palpation (GI): Soft to palpation Auscultation: normal bowel sounds Neuro Motor exam (neuro): no asterixis Results Lab Results 03/08/25 05:20 03/08/25 05:20 Lab results: Chemistry 03/07/25 03/08/25 14:07 05:20 Sodium 136 137 Potassium 4.1 3.6 Carbon Dioxide 24 26 BUN 51 H 29 H Creatinine 6.20 H* 4.57 H* Calcium 9.1 9.0 Hematology 03/07/25 03/08/25 12:59 05:20 WBC 4.4 L 4.5 L Hgb 12.7 D 12.1 Plt Count 158 L 144 L Urinalysis 03/07/25 16:17 Urine Color Yellow Urine Appearance Turbid Urine pH 7.5 Ur Specific [place] 1.015 Urine Protein 300 (3+) H Urine Glucose (UA) 100 H Urine Ketones Negative Urine Blood Large (3+) H Urine Nitrite Positive H Ur Leukocyte Esterase Moderate (2+) H Urine RBC 3-5 H Urine WBC >50 Ur Squamous Epith Cells 3-5 Hyaline Casts 0-2 Assessment and Plan (1) ESRD (end stage renal disease) on dialysis: Status: Acute Plan end stage renal disease with mild fluid overload. She usually gets dialysis on Friday. She underwent dialysis yesterday as per protocol. Blood pressure is suboptimal primarily due to excessive fluid. Optimize blood pressure. Keep on low-sodium diet. Hemoglobin is stable no indication for Epogen. Concur with other medical management She will follow along with the team as needed. Procedures Date of Service Date of Service: 03/08/25
[2025-03-08] MEDS: Sevelamer Carbonate Tablet 800 MG TABLET PO (14:48)
[2025-03-08 14:50] VITALS: BP 157/74; PULSE 64; RESP 16; TEMP 36.3; O2SAT 96
--- NOTE | 2025-03-08 15:57 | W.MHC.F2F ---
Service Date Service Date: 03/08/25 Encounter Date of encounter: 03/08/25 Encounter: esrd ,recent hip surgery Reasons for Services Signs and symptoms assessed: any new symptoms Reason for group home: CV/CP assess and/or care, medication management, medication treatment and teach disease management Reason for physical therapy: home safety and mobility, therapeutic exercises, restore joint function, gait/transfer training, assess need for DME, ADL training, energy conservation and other MD Overseeing Care: Marita Wetzel Homebound: Leaving the home is medically contraindicated at this time without the asist of a device and/or another person due th the listed conditions above and below. Reason homebound: weakness related to hospital stay Homebound supporting statement: Patient is generalised weak post hospitlisation and need help with going to appointments , need to set up with the [facility] and the surgery(also need help for that), labs, please see ortho recommendation in discharge summary. Certification: Based on the above findings, I certify that this patient is confined to the home and needs intermittent group home care, physical therapy and/or speech therapy, or continues to need occupational therapy. The patient is under my care, and I have initiated the establishment of the plan of care. The patient will be followed by a physician who will periodically review the plan of care. Time Spent With Patient Time: Total time managing care of this patient today ____ minutes.
--- NOTE | 2025-03-08 16:04 | MHC.CM.PN ---
DC info sent to [facility].
== END 2025-03-08 16:16 | disposition home health service (06) ==
LOC: HO.ED 15:13 → HO.EDOVER 16:54 → HO.S3 16:57
PROVIDERS: Admitting Provider Nurse Practitioner Acute Care; Emergency Provider Emergency Medicine; PCP Family Medicine; Visit Provider Internal Medicine
DX: I12.0 Hypertensive chronic kidney disease with stage 5 chronic kidney disease or end stage renal disease (principal); E11.22 Type 2 diabetes mellitus with diabetic chronic kidney disease; N18.6 End stage renal disease; R53.1 Weakness; M25.552 Pain in left hip; R42 Dizziness and giddiness; R94.31 Abnormal electrocardiogram [ECG] [EKG]; E78.5 Hyperlipidemia, unspecified; K21.9 Gastro-esophageal reflux disease without esophagitis; Z03.818 Encounter for observation for suspected exposure to other biological agents ruled out; Z99.2 Dependence on renal dialysis; Z79.899 Other long term (current) drug therapy; Z98.890 Other specified postprocedural states
CPT/HCPCS: 36415; 71045; 73502; 80048; 80076; 81001; 82947; 83605; 83690; 84484; 85025; 85027; 87040; 87086; 87637; 90999; 93005; 96374; 96375; 96376; 97162; 99221; 99285; J0360; J2270

== ENCOUNTER → 2025-03-07 12:31 | Outpatient (BNV) | payer MEDICARE, OTHER, SELFPAY | PROVIDERS: Admitting Provider Nurse Practitioner Acute Care; Emergency Provider Emergency Medicine; PCP Family Medicine; Visit Provider Internal Medicine | DX: I25.2 Old myocardial infarction (principal) | CPT/HCPCS: 93010 ==

== ENCOUNTER → 2025-03-07 12:31 | Outpatient (BNV) | payer MEDICARE, OTHER, SELFPAY | PROVIDERS: Emergency Provider Emergency Medicine; PCP Family Medicine; Visit Provider Radiology Diagnostic Radiology | DX: R91.8 Other nonspecific abnormal finding of lung field (principal) | CPT/HCPCS: 71045 ==

== ENCOUNTER → 2025-03-07 12:45 | Outpatient (BNV) | payer MEDICARE, OTHER, SELFPAY | PROVIDERS: Emergency Provider Emergency Medicine; PCP Family Medicine; Visit Provider Nurse Practitioner Acute Care | DX: N18.6 End stage renal disease (principal); I12.0 Hypertensive chronic kidney disease with stage 5 chronic kidney disease or end stage renal disease; Z99.2 Dependence on renal dialysis | CPT/HCPCS: 99239; G0180 ==

== ENCOUNTER → 2025-03-07 16:34 | Outpatient (BNV) | payer MEDICARE, OTHER, SELFPAY | PROVIDERS: Admitting Provider Nurse Practitioner Acute Care; Emergency Provider Emergency Medicine; PCP Family Medicine; Visit Provider Internal Medicine Hypertension Specialist | DX: N18.6 End stage renal disease (principal); Z99.2 Dependence on renal dialysis | CPT/HCPCS: 99223 ==

== ENCOUNTER 2025-03-18 11:03 | Emergency (ER) | payer MEDICARE, OTHER, SELFPAY ==
--- OUTSIDE RECORDS SUMMARY | 2024-07-02 05:30 | XMS_ITS ---
Author Organization [facility] Address [address] [place] [address] Care Team Providers Care Telephone Directory Deliverer Name Role Phone Jah Miryam Unavailable [phone] Encounters Encounter Location Date Provider Diagnosis [address] [address] 07/02/2024 Miryam Tyson Plan Of Treatment No Information Progress Notes * Farhan BEARDaDOB:1960 (64 yo F)Acc No.[id number]:07/02/2024 Progress Notes Patient: Alix SHEARER Provider: Esvin Tyson DPM :1960 A ge:64 Y S ex:Female Date:07/02/2024 Address:[address] [place], [place] [id number] Subjective: * Chief Complaints: * * Medical History: Objective: * Vitals: Assessment: Plan: * Treatment: * Images: * The named appointment provid er may or may not be the originator of this progress note, and it is not deemed complete until electronically signed by the appointment provider. Sign off status: Pending * Provider: Esvin Tyson DPM Date: 0 07/02/2024 Generated for Michael santos/Chloe/Aurelia on: 05/18/2024 11:37 AM EST
--- NOTE | ~2025-03-18 | XR_ITS ---
EXAMINATION: XR HIP 1 VIEW LEFT WITH PELVIS HISTORY: L hip TTP, prior Fx/hardware COMPARISON: Comparison is made with the prior examination dated 03/07/2025. FINDINGS: Two AP views of the pelvis and three views of the left hip are submitted. Osseous mineralization is normal. The patient is again noted to be status post internal fixation of a subcapital fracture of the femur with a single screw. The fracture line is better seen on the current examination which could be due to patient positioning. There is mild joint space narrowing. There are vascular calcifications. XR/XR hip LT w PEL1V IMPRESSION: Internal fixation of a subcapital fracture of the femur. Electronically signed by: Db Berry MD 03/18/2025 12:17 PM JANICE
[2025-03-18 11:10] VITALS: BP 118/76; PULSE 64; O2SAT 95
[2025-03-18 11:20] VITALS: BP 147/48; PULSE 60; RESP 16; TEMP 36.5; O2SAT 100; BMI 23.1
--- OUTSIDE RECORDS SUMMARY | 2025-03-18 11:38 | XMS_ITS | Encounter Summary ---
Author Organization [facility] Address [address] [place] [address] Phone Care Team Providers Care Marketing Automation Analyst Name Role Phone Marita Wetzel DO Primary Care Provider Unava ilable Encounter Details Date Type Department Care Team (Late st Contact Info) Description 05/01/2023 Documentation Only [facility] [address] [place] [phone] [place], [place] [address] [place] [phone] Social History Tobacco Use Types Packs/Day Years [...] Care Team (Late st Contact Info) Description 04/05/2025 9:30 AM EST Clinical Support [facility] [address] [place] [phone] 07/12/2025 1:00 PM EDT Scheduled Only [facility] [address] [place] [phone] Scheduled Orders Name Type Priority Associated Diagnoses [...] Primary documented in this encounter Care Teams Marketing Automation Analyst Relationship Specialty Start Date End Date Marita Wetzel DO [address] [place] [address] PCP - General Family Medicine 11/14/22 documented as of this encounter
--- OUTSIDE RECORDS SUMMARY | 2025-03-18 11:38 | XMS_ITS | Encounter Summary ---
Author Organization [facility] Address [address] [place] [address] Care Team Providers Care Tank Assembler Name Role Phone Marita Wetzel Primary Care Provider [phone]- [phone] Encounter Details Date Type Department Care Team (Late st Contact Info) Description 05/07/2024 Lab Requisition [facility] - Main Lab [address] [place] [phone] Marily Gordillo MD [address] [place] [address] Chronic embolism and thrombosis of [...] ORDERABLES Final Resul t Performing Organization Address City/[facility]/ZIP Co de Phone Number [facility] [address] [place] [address], [place] [phone] * Tacrolimus level (05/10/2024 5:50 AM EST) [...] developed and the performance characteristics determined by [facility]. This confirmation testing has not been cleared or approved by the FDA. The laboratory is regulated under CLIA as qualified to perform high-complexity testing. This test is used for patient testing purposes. It should not be regarded as investigational or for research. Test performed at [facility], [address] , [place], [place] [id number] Ashtyn Leigh MD, PhD - Line Palletizer Blood Venous blood specimen / Unknown Venipuncture / Unknown 05/10/2024 5:50 AM EST 05/10/2024 9:58 AM EST Marily Gordillo MD LAB BLOOD ORDERABLES Final Resul t [facility] [address] [place] [address] documented in this encounter Visit Diagnoses Diagnosis Chronic embolism and thrombosis of unspecified vein Acute kidney failure, unspecified (CMS/[facility] V24) Acute kidney failure, unspecified documented in this encounter Care Teams Tank Assembler Relationship Specialty Start Date End Date Marita Wetzel DO [address] [place] [address] PCP - General 01/09/23 documented as of this encounter
--- OUTSIDE RECORDS SUMMARY | 2025-03-18 11:38 | XMS_ITS | Data Portability ---
Author Organization [facility] [employer] [facility], Main Office Address [address] [place] [address] Care Team Providers Care Drywall Sprayer Name Role Phone PRIMITIVO CHRISTENSEN 2ND FLOOR [...] Details Recorded Time Gastrostomy tube in situ 888395578 Active 2022 SENIA PEÑA NP [address] , [address], [place], [address], [facility] 3 14:53:19 Type 2 diabetes mellitus 24742571 Active 2022 SENIA PEÑA NP [address], [address], [place], [address], [facility] 3 14:53:33 Essential hypertension 63459325 Active 2022 SENIA PEÑA NP [address], [address], [place], [address], [facility] 3 14:54:14 Hiccoughs 97163852 Active 2022 SENIA PEÑA NP [address], [address], [place], [address], [employer] [facility] 3 14:54:22 Anemia 564303791 Active 2022 SENIA PEÑA NP [address], [address], [place], [address], [employer] [facility] 3 14:54:39 Gastroesophage al reflux disease without esophagitis 473868411 Active 2022 SENIA PEÑA NP [address], [address], [place], [address], [employer] [facility] 3 14:56:54 Adult failure to thrive syndrome 436068654 Active 2022 SENIA PEÑA NP [address] [facility], [address], [place], [address], [employer] [facility] [employer] [facility] 3 14:57:30 Asthenia 06248844 Active 2022 SENIA PEÑA NP [address] [facility], [address], [place], [address], [employer] [facility] 3 14:57:41 Transplant of kidney Active 2022 SENIA PEÑA NP [address] [facility], [address], [place], [address], [facility] 3 15:20:19 Immunosuppress tracy therapy Active 2022 SENIA PEÑA NP [address] [facility], [address], [place], [address], [employer] [facility] 3 15:20:30 Problem Notes None recorded. Medical Equipment None Reported. Allergies Allergen ID Allergen Name Allergen Category Reaction Reaction Severity Criticality Documentation Date Start Date Code Code System Note Provider Name and Address Organization Details Recorded Time 43275 codeine medicatio n Not available Not available Not available 02/18/2023 2670 RxNorm SENIA PEÑA, EPIFANIO [address], [address], [place], [address], [employer] [facility] 3 14:52:51 73914 oxycodone medicatio n Not available Not available Not available 02/18/2023 7804 RxNorm SENIA PEÑA NP [address] [facility], [address], [place], [address], [employer] [facility] 3 14:52:58 Medications Name Sig Start Date Stop Date Status Note LastModified by Organization Details LastModified Time tramadol 50 mg tablet Take 0.5 tablets every 8 hours by oral route as needed. 023 active Not Available Not Available Not Avai lable Vitals Date Recorded Heart rate Respiratory rate Body temperature Oxygen saturation Systolic And Diastolic Provider Name and Address Organization Details Last Updated DateTime 3 67 /min 16 /min 98.5 [degF] 98 % 153/61 mm[Hg] SENIA PEÑA NP [address] [place] [address], [address], [place], [address], [employer] [facility] 3 14:58:05 Date Recorded Heart rate Respiratory rate Body temperature Oxygen saturation Systolic And Diastolic Provider Name and Address Organization Details Last Updated DateTime 3 58 /min 16 /min 99 [degF] 95 % 160/74 mm[Hg] SENIA PEÑA NP [address] [place] [address], [address], [place], [address], [employer] [facility] 3 11:17:13 Date Recorded Body height Body mass index (BMI) Body weight Heart rate Respiratory rate Body temperature Oxygen saturation Systolic And Diastolic Provider Name and Address Organization Details Last Updated DateTime 3 167.64 cm 22 kg/m2 66024.5 6 g 80 /min 20 /min 97.5 [degF] 96 % 128/70 mm[Hg] Aidee Garcia MD [address] [facility], [address], [place], [address], [employer] [facility] [employer] [facility] 3 15:16:07 Date Recorded Body height Heart rate Respiratory rate Body temperature Oxygen saturation Systolic And Diastolic Provider Name and Address Organization Details Last Updated DateTime 3 167.64 cm 78 /min 16 /min 97.5 [degF] 97 % 122/68 mm[Hg] SENIA PEÑA NP [address] [facility], [address], [place], [address], [employer] [facility] 3 15:15:05 Social History Question Answer Notes LastModified by Organizat ion Details LastModified Time Tobacco Smoking Status Never Smoker SENIA PEÑA, EPIFANIO [address] [facility], [address], [place], [address], [facility] 02/18/2023 14:55:18 Do You Have An Advance Directive? Yes Information not available 02/19/2023 What Is Your Code Status? Full Code Information not available 02/19/2023 Where Do You Live? MultiLevelHouse Home With , Many Stairs Information not available 02/20/2023 Legal Guardian? No Informati on not available 02/20/2023 Do You Have A Medical Power Of Food Cashier? Yes Information not available 02/20/2023 What Was [...] adjuvanted, quadrivalent, PF 01/23/2022 completed Thania bonner [facility] [employer] [facility] 06/18/2023 12:05:05 Influenza, adjuvanted, quadrivalent, PF 02/26/2023 completed Thania bonner [facility] 06/18/2023 12:05:39 Past Encounters Encounter ID Performer Location Encounter Start Date Encounter Closed Date Diagnosis/Indication Diagnosis SNOMED-CT Code Diagnosis ICD10 Code Diagnosis IMO Codes Diagnosis Note [id number] EPIFANIO SCHNEIDER FERMIN [address] [place] [address] 02/18/2023 14:50:00 02/21/2023 16:14:24 Adult failure to thrive syndrome 185559689 R62.7 GTdental soft, thin liquidswei ghts daily Gastrostom y tube in situ 335616537 Z93.1 flush with water qshift and after medspancre aleptase 10,500 q5 mg for clogged Gtsodium bicarb 650 mg for clogged GT Gastroesop hageal reflux disease without esophagitis 294696115 K21.9 lansoprazo le 30 mg bidprotoni x 40 mg bid Essential hypertension 84202964 I10 lisinopril 5 mg dailyamlod ipine 10 mg dailycoreg 25 mg bidmonitor bp Anemia 052371556 D64.9 cyancobala min 1000 dailyfolic 1 mg dailythiam ine 100 mg dailyprocr it 20,000 qweekmonit or labs Type 2 michael betes mellitus 71373339 E11.9 glargine 15 units amlispro l0eqbwdxts r glucose Asthenia 86724617 R53.1 PT OT eval and treatfall precaution sfrequent safety checks Hiccoughs 52284144 R06.6 baclofen 5 mg tid prn Immunosupp ressive therapy 80157375 D84.9 myucopheno lic 180 4 tabs bidtacroli mus 7 daily [id number] EPIFANIO SCHNEIDER [address] [place] [address] 02/19/2023 11:16:30 02/21/2023 16:42:00 Gastrostomy tube in situ 462540718 Z93.1 FLUSH WITH WATER QSHIFT , BEFORE AND AFTER MEDSpancre aleptase 10,500 q5 mg for clogged Gtsodium bicarb 650 mg for clogged GT [id number] MD PRIMITIVO Torres FERMIN [address] [place] [address] 02/20/2023 14:20:37 02/25/2023 10:42:34 Adult failure to thrive syndrome 741382984 R62.7 Improving since on supplement al feeds vis g-tube.Not on optimal feeding as not yet available. Currently on Osmolite 1.2 mariah @ 65 ml/hr, will be switching to Glucerna when available. Monitor wts and labs. Gastrostom y tube in situ 079411981 Z93.1 As above.Wate r flush q shift.Use pancrelipa se prn and NaHCO3 prn both for clogged tubeMonito r function.C hange tube q 3 months with IR Gastroesop hageal reflux disease without esophagitis 294261546 K21.9 On meds prophylact ically due to G-tube.Unc lear if she's really supposed to be on both lansoprazo le and pantoprazo le, but for now will continue.C ontinue lansoprazo le 30 mg BID and pantoprazo le 40 mg BID.Monito r sxs. Essential hypertension 69817175 I10 Good control since here.Delilah nue lisinopril 5 mg qd, amlodipine 10 mg qd, and carvedilol 25 mg BID.Monito r BP and labs. Anemia 688650850 D63.1 Multifacto rial, but primarily due to CKD.Contin ue cyancobala min 1000 mcg qd, folic acid 1 mg qd, thiamine 100 mg qd and procrit 20,000 units qweek.Marycruz tor labsF/U with renal as planned. Type 2 michael betes mellitus 13892597 E11.9 Sugars very high since here, likely due to wrong tube feed being used.Gluce rna was just delivered, so will not change Lantus at this time.Delilah nue Lantus 15U qd qd and continue SSI.Contin ue fingerstic ks qid. Adjust meds as needed. Asthenia 64916662 R53.1 Very deconditio casi.Needs PT/OT for strengthen ing, balance, gait training, safety and function.C ontinue fall precaution s.Monitor for safety. Hiccoughs 57429639 R06.6 Continue baclofen 5 mg TID prnMonitor sxs. End stage renal failure with renal transplant 354582262 Z94.0 N18.31 Had ESRD, now stage 3AAt baseline.N ot getting the right dose of tacrolimus since here, supposed to be 7 mg qd, but has only been getting 1 mg. Will correct.Co ntinue mycophenol ate 720 mg BID.Contin ue to avoid nephrotoxi c meds as able.Monit or labs.Renal f/u as planned. Infection of skin and/or subcutaneous tissue 46019202 L08.9 With early infection of g-tube site.Will start doxy 100 mg BID x 5 days with probiotic BID x 10 days.Empha size need to put gauze between flange and skin.Monit or. [id number] SENIA PEÑA NP [address] [place] [address] 02/24/2023 14:27:36 02/26/2023 13:13:22 Anemia 098576984 D63.1 cyancobala min 1000 dailyfolic 1 mg dailythiam ine 100 mg dailyprocr it 20,000 qweekmonit or labs Gastrostom y tube in situ 021096462 Z93.1 FLUSH WITH WATER QSHIFT , BEFORE AND AFTER MEDSpancre aleptase 10,500 q5 mg for clogged Gtsodium bicarb 650 mg for clogged GT Immunosupp ressive therapy 52106636 D84.9 myucopheno lic 180 4 tabs bidtacroli mus 7 mg daily Health Concerns Section Related Observation LastModified by Organization Detai ls LastModified Time None Recorded Concern Status LastModified by Organization Details LastModified Time None Recorded Advance Directives Directive Y: Payers Insurance Date Sequence Insurance Name Policy Number Policy Engle Covered Member ID Engle Member ID Guarantor Name 02/21/2023 1 MEDICARE B-[place]: [employer] [facility] [id number] [facility] 02/25/2023 2 FOR LIFE () [facility] [id number] [facility] Notes Date Note Type Note Provider [...] kidney injury. She was seen by her digital printer earlier today and was referred for admission [...] discomfort or distress. SENIA PEÑA NP [address] [facility], [address], [place], [address], [employer] [facility] 02/18/2023 15:22:49 02/19/2023 text/html ROS as noted in the HPI seen today for acute rounding visit, CAOx3 sitting up in bed, GT was blocked, unable to initially flush or pull back, irrig with coca cola and will persistence was able to unclog the GT and it flushed well afterwards SENIA PEÑA NP [address] [facility], [address], [place], [address], [employer] [facility] 02/19/2023 11:20:46 02/20/2023 text/html This is a complicated 62 yo woman who is here for rehab after an acute hospitalization for FTT. She has had many hospitalizations over the past yr. Starting with kidney transplant in 02/2022 (on tacrolimus and mycophenolate). Most recently she was sent in for direct admission on 01/24, sent in by her digital printer for poor po intake and wt. loss. [...] don't want to throw myself a pity libertarian, but it's been hard . She says she's already starting to feel much stronger.Her PMH includes HTN, hx of ESRD (had been on peritoneal dialysis) now s/p cadaver kidney transplant in 02/2022 on tacrolimus and mycophenolate, AODM, anemia, HLD, hx of carcinoid of appendix s/p resection, cholelithiasis, and FTT with g-tube for supplemental nutrition. Aidee Garcia MD [address] [place] [address], [address], [place], [address], [facility] 02/20/2023 21:24:33 02/24/2023 text/html ROS as noted in the HPI seen today for acute rounding visit-CAOx3 in bed, she is eating and drinking fairly well, GT remains intact, h/h down 6.06/10 will send to hospital for transfusion, she denies any discomfort or distress, lungs clear no edema SENIA PEÑA, EPIFANIO [address] [facility], [address], [place], [address], [facility] 02/24/2023 15:21:54 OBGyn Episode No OBEpisode recorded.
--- OUTSIDE RECORDS SUMMARY | 2025-03-18 11:38 | XMS_ITS | Encounter Summary ---
Author Organization [facility] Address [address] [place] [address] Phone Care Team Providers Care Business Control Specialist Name Role Phone Marita Wetzel DO Primary Care Provider Unava ilable Encounter Details Date Type Department Care Team (Late st Contact Info) Description 08/11/2023 Documentation Only [facility] [address] [address] [place], [place], [place] [address] [place] [phone] Social History Tobacco Use Types Packs/Day Years [...] [facility] [address] [address] 07/12/2025 1:00 PM EDT Scheduled Only [facility] Vascular Access Center [address] [address] documented as of this encounter Visit Diagnoses Not on filedocumented in this encounter Care Teams Business Control Specialist Relationship Specialty Start Date End Date Marita Wetzel DO [address] [place] [address] PCP - General Family Medicine 11/14/22 documented as of this encounter
--- OUTSIDE RECORDS SUMMARY | 2025-03-18 11:38 | XMS_ITS | Encounter Summary ---
Author Organization [facility] [place], Address [address] [place] [address] Phone Care Team Providers Care Licensed Optician Name Role Phone Marita Wetzel DO Primary Care Provider Unava ilable Encounter Details Date Type Department Care Team (Late st Contact Info) Description 10/17/2023 Documentation Only [facility] [address] [place] [place] [address] [place], [place] [address] [place] [address] Social History Tobacco Use Types Packs/Day Years [...] And Transplant Services Of [facility] - Vascular Access Center [address] [place] [address] 07/12/2025 1:00 PM EDT Scheduled Only [facility] Vascular Access Center [address] [place] [phone] documented as of this encounter Visit Diagnoses Not on filedocumented in this encounter Care Teams Licensed Optician Relationship Specialty Start Date End Date Marita Wetzel DO [address] [place] [address] PCP - General Family Medicine 11/14/22 documented as of this encounter
--- OUTSIDE RECORDS SUMMARY | 2025-03-18 11:38 | XMS_ITS | Encounter Summary ---
Author Organization [facility] Address [address] [place] [address] Care Team Providers Care Medical Service Technician Name Role Phone Marita Wetzel DO Primary Care Provider +1- [phone] Encounter Details Date Type Department Care Team (Late st Contact Info) Description 05/30/2024 Lab Requisition [facility] - Main Lab [address] [facility] [place] [address] Marily Gordillo MD [address] [place] [phone] Chronic embolism and thrombosis of unspecified vein; [...] documented in this encounter Care Teams Medical Service Technician Relationship Specialty Start Date End Date Marita Wetzel DO [address] [place], [place] PCP - General 01/09/23 documented as of this encounter
--- OUTSIDE RECORDS SUMMARY | 2025-03-18 11:38 | XMS_ITS | Encounter Summary ---
Author Organization [facility] Address [address] [place] [address] Phone Care Team Providers Care Transport Tech Name Role Phone Marita Wetzel DO Primary Care Provider Unava ilable Encounter Details Date Type Department Care Team (Late st Contact Info) Description 10/06/2023 Documentation Only [facility] [place], [address] [place] [address] [place], [place], [place] [address] [place] [address] Social History Tobacco Use Types [...] on file documented as of this encounter Functional Status * Question Answer Date of Assessment Author BP 152/67 10/06/2023 10:05 AM EDT Hazel Del Valle * BP Location Answer Date of Assessment Author Right upper arm 10/06/2023 10:05 AM Esvin Rosas * Question Answer Date of Assessment Author BP 152/67 10/06/2023 10:05 AM EDT Hazel Del Valle * BP Location Answer Date of Assessment Author Right upper arm 10/06/2023 10:05 AM Esvin Rosas documented as of this encounter Plan of Treatment Upcoming Encounters Date Type Department Care Team (Late st Contact Info) Description 04/05/2025 9:30 AM EST Clinical Support [facility] Vascular Access Center [address] [place] [address] [place] [address] 07/12/2025 1:00 PM EDT Scheduled Only [facility] Vascular Access [address] [place] [address] documented as of this encounter Visit Diagnoses Not on filedocumented in this encounter Care Teams Transport Tech Relationship Specialty Start Date End Date Marita Wetzel DO [address] [place] [address] PCP - General Family Medicine 11/14/22 documented as of this encounter
--- OUTSIDE RECORDS SUMMARY | 2025-03-18 11:38 | XMS_ITS | Encounter Summary ---
Author Organization [facility] [place], Address [address] [place] [address] Phone Care Team Providers Care Lead Assistant Manager Name Role Phone Marita Wetzel DO Primary Care Provider Unava ilable Reason for Visit * Reason Comments Med Refill Encounter Details Date Type Department Care Team (Late Contact Info) Description 12/06/2020 Refill [facility] [place] [address] [place] [address] Bernardo Doty MD [address] [place] [phone] Social History Tobacco Use Types Packs/Day Years [...] Department Care Team (Late Contact Info) Description 04/05/2025 9:30 AM EST Clinical Support [facility] Vascular Access Center [address] [address] 07/12/2025 1:00 PM EDT Scheduled Only [facility] Vascular Access Center [address] [address] documented as of this encounter Visit Diagnoses Not on filedocumented in this encounter Care Teams Lead Assistant Manager Relationship Specialty Start Date End Date Marita Wetzel DO [address] [place] [address] PCP - General Family Medicine 11/14/22 documented as of this encounter
--- OUTSIDE RECORDS SUMMARY | 2025-03-18 11:38 | XMS_ITS | Encounter Summary ---
Author Organization [facility] Address [address] [place] [address] Phone Care Team Providers Care Appraiser Boats And Marine Name Role Phone Marita Wetzel DO Primary Care Provider Unava ilable Encounter Details Date Type Department Care Team (Late st Contact Info) Description 08/27/2023 Documentation Only [facility] [address] [place] [address] [place], [place], [place] [address] [place] [address] Social History Tobacco Use Types Packs/Day Years [...] Transplant [facility] - Vascular Access Center [address] [place] [address] 07/12/2025 1:00 PM EDT Scheduled Only [facility] Vascular Access Center [address] [place] [phone] documented as of this encounter Visit Diagnoses Not on filedocumented in this encounter Care Teams Appraiser Boats And Marine Relationship Specialty Start Date End Date Marita Wetzel DO [address] [place] [address] PCP - General Family Medicine 11/14/22 documented as of this encounter
--- OUTSIDE RECORDS SUMMARY | 2025-03-18 11:38 | XMS_ITS | Encounter Summary ---
Author Organization [facility] Address [address] [place] [address] Phone Care Team Providers Care Manager Reporting Name Role Phone Marita Wetzel DO Primary Care Provider Unava ilable Encounter Details Date Type Department Care Team (Late st Contact Info) Description 05/20/2023 Documentation Only [facility] [address] [place] [address] [place], [place], [place] [address] [place] [address] Social History Tobacco Use Types Packs/Day Years [...] And Transplant Services Of [facility] - Vascular Access Center [address] [place] [address] 07/12/2025 1:00 PM EDT Scheduled Only [facility] Vascular Access Center [address] [place] [address] documented as of this encounter Visit Diagnoses Not on filedocumented in this encounter Care Teams Manager Reporting Relationship Specialty Start Date End Date Marita Wetzel DO [address] [place] [address] PCP - General Family Medicine 11/14/22 documented as of this encounter
--- OUTSIDE RECORDS SUMMARY | 2025-03-18 11:38 | XMS_ITS | Encounter Summary ---
Author Organization [facility] Address [address] [place] [address] Phone Care Team Providers Care Parking Control Officer Name Role Phone Marita Wetzel DO Primary Care Provider Unava ilable Encounter Details Date Type Department Care Team (Late st Contact Info) Description 03/18/2023 Documentation Only [facility] [address] [place] [address] Bernardo Doty MD [address] [place] [address] [place] [address] Social History Tobacco Use Types Packs/Day Years [...] [facility] [address] [place] [address] 07/12/2025 1:00 PM EDT Scheduled Only [facility] Vascular Access Center [address] [place] [address] documented as of this encounter Visit Diagnoses Not on filedocumented in this encounter Care Teams Parking Control Officer Relationship Specialty Start Date End Date Marita Wetzel DO [address] [place] [address] PCP - General Family Medicine 11/14/22 documented as of this encounter
--- OUTSIDE RECORDS SUMMARY | 2025-03-18 11:38 | XMS_ITS | Encounter Summary ---
Author Organization [facility] Address [address] [place] [address] Care Team Providers Care Production Planner Name Role Phone Marita Wetzel DO Primary Care Provider +1- [phone] Encounter Details Date Type Department Care Team (Late st Contact Info) Description 05/31/2024 Lab Requisition [facility] - Main Lab [address] [facility] [place] [phone] Marily Gordillo MD [address] [place] [address] Acute kidney failure, unspecified (CMS/HCC [...] unspecified documented in this encounter Care Teams Production Planner Relationship Specialty Start Date End Date Marita Wetzel DO [address] [place], [place] PCP - General 01/09/23 documented as of this encounter
--- OUTSIDE RECORDS SUMMARY | 2025-03-18 11:38 | XMS_ITS | Encounter Summary ---
Author Organization [facility] Address [address] [place] [address] Phone Care Team Providers Care Flying Teacher Name Role Phone Marita Wetzel DO Primary Care Provider Unava ilable Encounter Details Date Type Department Care Team (Late st Contact Info) Description 04/18/2023 Documentation Only [facility] [address] [place] [address] Jerod Adames DO [address] [place] [address] [place] [address] Social History Tobacco Use Types Packs/Day Years [...] Support [facility] - Vascular Access Center [address] [place] [address] 07/12/2025 1:00 PM EDT Scheduled Only [facility] Vascular Access Center [address] [place] [address] documented as of this encounter Visit Diagnoses Not on filedocumented in this encounter Care Teams Flying Teacher Relationship Specialty Start Date End Date Marita Wetzel DO [address] [place] [address] PCP - General Family Medicine 11/14/22 documented as of this encounter
--- OUTSIDE RECORDS SUMMARY | 2025-03-18 11:38 | XMS_ITS | Encounter Summary ---
Author Organization [facility] Address [address] [place] [address] Phone Care Team Providers Care Office Machine Installer Name Role Phone Marita Wetzel DO Primary Care Provider Unava ilable Encounter Details Date Type Department Care Team (Late st Contact Info) Description 08/28/2023 Documentation Only [facility] [address] [place] [address] [place], [place], [place] [address] [place] [address] Social History Tobacco Use Types Packs/Day Years [...] [facility] - V[facility] Access Center [address] [place] [address] 07/12/2025 1:00 PM EDT Scheduled Only [facility] Vascular Access Center [address] [place] [address] documented as of this encounter Visit Diagnoses Not on filedocumented in this encounter Care Teams Office Machine Installer Relationship Specialty Start Date End Date Marita Wetzel DO [address] [place] [address] PCP - General Family Medicine 11/14/22 documented as of this encounter
--- OUTSIDE RECORDS SUMMARY | 2025-03-18 11:38 | XMS_ITS | Patient Health Record ---
Author Organization [facility] Address [address] [place] [address] Care Team Providers Care Sales And Operations Trainee Name Role Phone FiorellasylwiaMiryam Unavailable [phone] Reason For Referral No Information Encounters Encounter Location Date Provider Diagnosis [facility] [address] [place] [address] 04/22/2024 Miryam Tyson [facility] [address] [place] [address] 06/17/2024 Miryam Tyson Plan Of Treatment No Information Insurance Providers Payer Name Payer Address Payer Phone Subscriber Number Group Number Insured Name Patient Relationship to Insured Coverage Start Date Coverage End Date Medicare National [facility] [address] [place] [address] [id number] Alix Sharp Self - patient is the insured for Life [address] [place] [address] [phone] [id number] Alix Sharp Self - patient is the insured
--- OUTSIDE RECORDS SUMMARY | 2025-03-18 11:38 | XMS_ITS | Encounter Summary ---
Author Organization [facility] Address [address] [place] [address] Phone Care Team Providers Care Soda Flaker Name Role Phone Marita Wetzel DO Primary Care Provider Unava ilable Encounter Details Date Type Department Care Team (Late st Contact Info) Description 06/25/2022 Documentation Only [facility] [place], [address] [place] [address] Pauline Aguayo [address] [place] [address] Social History Tobacco Use Types [...] Question Answer Date of Assessment Author BP 146/60 06/25/2022 5:36 PM Candace Brantley PA Height 67 06/25/2022 5:36 PM Candace Brantley PA Weight 2640 06/25/2022 5:36 PM Candace Brantley PA * BMI (Calculated) Answer Date of Assessment Author 25.8 06/25/2022 5:36 PM Candace Markham PA * BP Location Answer Date of Assessment Author Right upper arm 06/25/2022 5:36 PM Candace Markham PA * Question Answer Date of Assessment Author BP 146/60 06/25/2022 5:36 PM Candace Brantley PA Height 67 06/25/2022 5:36 PM Candace Brantley PA Weight 2640 06/25/2022 5:36 PM Candace Brantley PA * BMI (Calculated) Answer Date of Assessment Author 25.8 06/25/2022 5:36 PM Candace Markham PA * BP Location Answer Date of Assessment Author Right upper arm 06/25/2022 5:36 PM Candace Markham PA documented as of this encounter Plan of Treatment Upcoming Encounters Date Type Department Care Team (Late st Contact Info) Description 04/05/2025 9:30 AM EST Clinical Support [facility] Vascular Access [address] [place] [address] 07/12/2025 1:00 PM EDT Scheduled Only [facility] Vascular Access [address] [place] [address] documented as of this encounter Visit Diagnoses Not on filedocumented in this encounter Care Teams Soda Flaker Relationship Specialty Start Date End Date Marita Wetzel DO [address] [place] [address] PCP - General Family Medicine 11/14/22 documented as of this encounter
--- OUTSIDE RECORDS SUMMARY | 2025-03-18 11:38 | XMS_ITS | Encounter Summary ---
Author Organization [facility] Address [place] [address] Phone Care Team Providers Care Highway Landscape Architect Name Role Phone Fouzia Wetzelfer Primary Care Provider Unava ilable Encounter Details Date Type Department Care Team (Late st Contact Info) Description 03/18/2023 Documentation Only [facility] Of [address] [place] [address] Srinivas Agrawal MD [address] [place] [address] [place] [address] Social History Tobacco Use Types Packs/Day Years [...] Services Of [facility] Vascular Access Center [address] [place] [address] [place] [address] 07/12/2025 1:00 PM EDT Scheduled Only [facility] Vascular Access [address] [place] [address] documented as of this encounter Visit Diagnoses Not on filedocumented in this encounter Care Teams Highway Landscape Architect Relationship Specialty Start Date End Date Marita Wetzel DO [address] [place] [address] PCP - General Family Medicine 11/14/22 documented as of this encounter
--- OUTSIDE RECORDS SUMMARY | 2025-03-18 11:38 | XMS_ITS | Encounter Summary ---
Author Organization [facility] Address [address] [place] [address] Phone Care Team Providers Care Associate Store Leader Name Role Phone Marita Wetzel DO Primary Care Provider Unava ilable Encounter Details Date Type Department Care Team (Late st Contact Info) Description 09/12/2023 Documentation Only [facility] [address] [address] [place], [place], [place] [address] [place] [address] Social History Tobacco Use Types Packs/Day Years [...] And Transplant Services Of [facility] - Vascular Access Center [address] [address] 07/12/2025 1:00 PM EDT Scheduled Only [facility] Vascular Access Center [address] [address] documented as of this encounter Visit Diagnoses Not on filedocumented in this encounter Care Teams Associate Store Leader Relationship Specialty Start Date End Date Marita Wetzel DO [address] [place] [address] PCP - General Family Medicine 11/14/22 documented as of this encounter
--- OUTSIDE RECORDS SUMMARY | 2025-03-18 11:38 | XMS_ITS | Encounter Summary ---
Author Organization [facility] Address [address] [place] [address] Care Team Providers Care Hotel Server Name Role Phone Marita Wetzel DO Primary Care Provider +1- [phone] Encounter Details Date Type Department Care Team (Late st Contact Info) Description 05/21/2024 Lab Requisition [facility] - Main Lab 299 [facility] [employer] [phone] Marily Gordillo MD [address] [place] [address] Chronic embolism and thrombosis of unspecified vein; [...] unspecified documented in this encounter Care Teams Hotel Server Relationship Specialty Start Date End Date Marita Wetzel DO [address] [place], [place] PCP - General 01/09/23 documented as of this encounter
--- OUTSIDE RECORDS SUMMARY | 2025-03-18 11:38 | XMS_ITS | Encounter Summary ---
Author Organization [facility] [place], Address [address] [place] [address] Phone Care Team Providers Care Superintendent Pipelines Name Role Phone Marita Wetzel DO Primary Care Provider Unava ilable Encounter Details Date Type Department Care Team (Late st Contact Info) Description 04/02/2023 Documentation Only [facility] [place] [address] Bernardo Doty MD [address] [facility] [place] [address] Social History Tobacco Use Types Packs/Day Years [...] Of [facility] Vascular Access Center [address] [place] [address] [place] [address] 07/12/2025 1:00 PM EDT Scheduled Only [facility] V[facility] Access [place] [address] [facility] [place] [address] documented as of this encounter Visit Diagnoses Not on filedocumented in this encounter Care Teams Superintendent Pipelines Relationship Specialty Start Date End Date Marita Wetzel DO [address] [place] [address] PCP - General Family Medicine 11/14/22 documented as of this encounter
--- OUTSIDE RECORDS SUMMARY | 2025-03-18 11:38 | XMS_ITS | Encounter Summary ---
Author Organization [facility] Address [address] [place] [address] Phone Care Team Providers Care Senior Payroll Specialist Name Role Phone Marita Wetzel DO Primary Care Provider Unava ilable Encounter Details Date Type Department Care Team (Late st Contact Info) Description 10/03/2023 Documentation Only [facility] [place], [address] [place] [address] Srinivas Agrawal MD [address] [place] [phone] Social History Tobacco Use Types Packs/Day Years [...] 10/06/2023 10:05 AM EDT Hazel Del Valle Height 67 10/03/2023 7:04 PM EDT Candace Campbell PA Weight 2291.2 10/03/2023 7:04 PM EDT Candace Campbell PA * BMI (Calculated) Answer Date of Assessment Author 22.4 10/03/2023 7:04 PM EDT Candace Adam PA * BP Location Answer Date of Assessment Author Right upper arm 10/06/2023 10:05 AM EDT Esvin Zepeda * Question Answer Date of Assessment Author BP 152/67 10/06/2023 10:05 AM EDT Amilcar akin Hazel Height 67 10/03/2023 7:04 PM EDT Candace Campbell PA Weight 2291.2 10/03/2023 7:04 PM EDT Candace Campbell PA * BMI (Calculated) Answer Date of Assessment Author 22.4 10/03/2023 7:04 PM EDT Candace Adam PA * BP Location Answer Date of Assessment Author Right upper arm 10/06/2023 10:05 AM EDT Esvin Zepeda documented as of this encounter Plan of Treatment Upcoming Encounters Date Type Department Care Team (Late st Contact Info) Description 04/05/2025 9:30 AM EST Clinical Support [facility] [address] [place] [address] [place] [address] 07/12/2025 1:00 PM EDT Scheduled Only [facility] [address] [place] [address] documented as of this encounter Visit Diagnoses Not on filedocumented in this encounter Care Teams Senior Payroll Specialist Relationship Specialty Start Date End Date Marita Wetzel DO [address] [place] [address] PCP - General Family Medicine 11/14/22 documented as of this encounter
--- OUTSIDE RECORDS SUMMARY | 2025-03-18 11:38 | XMS_ITS | Clinical Summary ---
Author Organization [facility] Address [address] [place] [phone] Phone Care Team Providers Care Lumber Handler Name Role Phone Bernardo Doty MD Unavailable Marita Wetzel DO Primary Care Provider [phone] Allergies Active Allergy Reactions Criticality Noted Date [...] mg by mouth daily. 08/26/2021 Active cloNIDine ([id number] ) 0.2 mg/[address] 1 patch [...] series) 2035 HEPATITIS C SCREENING Completed 11/26/2021 , 11/26/2021, 11/26/2021 HIV ONE-TIME SCREENING (18-65 YEARS) Completed [...] Date/Time Associated Diagnosis Comments COMPREHENSIVE METABOLIC PANEL (CMP) Routine 05/03/2024 3:27 PM EST Screening for [...] EST) SODIUM 135 133 - 146 mmol/L [facility] POTASSIUM 5.9(H) 3.3 - 5.1 mmol/L [facility] CHLORIDE 96 96 - 108 mmol/L [facility] CO2 27 21 - 35 mmol/L [facility] BUN 45(H) 6 - 19 mg/dL [facility] CREATININE 3.40(H) 0.5 - 1.5 mg/dL [facility] GLUCOSE 186(H) 70 - 99 mg/dL [facility] ALBUMIN 2.6(L) 3.9 - 4.8 g/dL [facility] TOTAL PROTEIN 6.2(L) 6.5 - 8.0 g/dL [facility] CALCIUM 9.0 8.4 - 10.3 mg/dL [facility] ALKALINE PHOSPHATASE 74 39 - 117 U/L [facility] TOTAL BILIRUBIN <0.2 0.0 - 1.2 mg/dL [facility] AST 9 0 - 37 U/L [facility] ALT 7 0 - 40 U/L [facility] GLOBULIN 3.6 1 - 4.8 g/dL [facility] EGFR 15(L) >59 mL/min/1.7 3m2 [facility] Comment:Estimated glomerular filtration rate calculated using the CKD-EPI refit equation. ANION GAP 18 10 - 20 mmol/L [facility] Blood 05/03/2024 3:27 PM EST 05/03/2024 8:39 PM EST us Twila CRUZ LAB BLOOD BKR ORDERABLES Final Result [address] [address] * Hepatitis C antibody, qualitative (11/26/2021 4:32 PM EDT) HCV Nonreactive Nonreactive [facility] Comment: 11/26/2021 4:32 PM EDT 11/26/2021 5:00 PM EDT us Manny Addison MD, PhD LAB BLOOD BKR ORDERABLES Fi nal Result Performing Organization Address [facility] Co de Phone Number [address] [address] * (ABNORMAL) Hemoglobin A1c (11/26/2021 4:32 PM EDT) HEMOGLOBIN A1C 7.8(H) 4.2 - 5.6 % [facility] Comment: HbA1c levels 5.7-6.4% [...] EDT Manny Addison MD, PhD LAB BLOOD BKR ORDERABLES Fi nal Result Performing Organization Address [facility] Co de Phone Number [address] [address] * (ABNORMAL) Lipid panel (11/26/2021 4:32 PM EDT) CHOLESTEROL 157 <200 mg/dL [facility] TRIGLYCERIDES 214(H) 35 - 150 mg/dL [facility] HDL 26(L) 40 - 80 mg/dL [facility] CALCULATED LDL 88 50 - 129 mg/dL [facility] VLDL 43(H) <31 mg/dL [facility] CARDIAC RISK RATIO 6.0(H) 0.0 - 4.0 [facility] 11/26/2021 4:32 PM EDT 11/26/2021 5:00 PM EDT Manny Addison MD, PhD LAB BLOOD BKR ORDERABLES Fi nal Result [facility] [address] [place] [address] from Last 3 Months or Most Recently Relevant to Health Maintenance Insurance MEDICARE PART A & B [employer] MEDICARE SUPPLEMENT [facility] Address[facility] [address] [place] [address] MEDICARE PART A & B FOR LIFE MEDICARE SUPPLEMENT [facility] Address: [address] [address] MEDICARE PART A & B [facility] FOR LIFE MEDICARE SUPPLEMENT MEDICARE PART A & B [facility] FOR LIFE MEDICARE SUPPLEMENT MEDICARE PART A & B [facility] FOR LIFE MEDICARE SUPPLEMENT MEDICARE PART A & B FOR LIFE MEDICARE SUPPLEMENT [facility] Address: [facility] [address] [place] [phone] MEDICARE PART A & B Care Teams Lumber Handler Relationship Specialty Start Date End Date Marita Wetzel DO [address] [place] [address] PCP - General Family Medicine 03/28/22 Bernardo Doty MD [address] [address] [email or web address] Nephrology 11/13/21 Additional Source Comments The information contained in this document represents components of the legal health record. It is not the complete legal health record.[facility]
--- OUTSIDE RECORDS SUMMARY | 2025-03-18 11:38 | XMS_ITS | Encounter Summary ---
Author Organization [facility] Address [address] [place] [address] Phone Care Team Providers Care Link And Link Knitting Machine Operator Name Role Phone Marita Wetzel DO Primary Care Provider Unava ilable Encounter Details Date Type Department Care Team (Late st Contact Info) Description 09/11/2023 Documentation Only [facility] [address] [place] [phone] Pauline Aguayo [address] [place] [address] Social History Tobacco Use Types [...] [facility] Center [address] [place] [address] 07/12/2025 1:00 PM EDT Scheduled Only [facility] [address] [place] [phone] documented as of this encounter Visit Diagnoses Not on filedocumented in this encounter Care Teams Link And Link Knitting Machine Operator Relationship Specialty Start Date End Date Marita Wetzel DO [address] [place] [address] PCP - General Family Medicine 11/14/22 documented as of this encounter
--- OUTSIDE RECORDS SUMMARY | 2025-03-18 11:38 | XMS_ITS | Encounter Summary ---
Author Organization [facility] Address [address] [place] [address] Phone Care Team Providers Care Door Furring Installer Name Role Phone Marita Wetzel DO Primary Care Provider Unava ilable Encounter Details Date Type Department Care Team (Late st Contact Info) Description 06/14/2022 Documentation Only [facility] [address] [place] [phone] Candace Adam PA [address] [place] [address] [place] [phone] Social History Tobacco Use Types Packs/Day Years [...] Support [facility] V[facility] Access Center [address] [place] [address] [place] [phone] 07/12/2025 1:00 PM EDT Scheduled Only [facility] Vascular Access [address] [place] [phone] documented as of this encounter Visit Diagnoses Not on filedocumented in this encounter Care Teams Door Furring Installer Relationship Specialty Start Date End Date Marita Wetzel DO [address] [place] [address] PCP - General Family Medicine 11/14/22 documented as of this encounter
--- OUTSIDE RECORDS SUMMARY | 2025-03-18 11:38 | XMS_ITS | Encounter Summary ---
Author Organization [facility] [place], Address [address] [facility] [place] [phone] Phone Care Team Providers Care Electrical Lineman Name Role Phone Marita Wetzel DO Primary Care Provider Unava ilable Reason for Visit * Reason Comments Med Refill Encounter Details Date Type Department Care Team (Late Contact Info) Description 06/30/2024 Refill [facility] [place] [address] [place] [phone] Srinivas Agrawal MD [address] [place] [phone] Social History Tobacco Use Types Packs/Day Years [...] Support [facility] [address] [place] [phone] 07/12/2025 1:00 PM EDT Scheduled Only [facility] [address] [place] [phone] documented as of this encounter Procedures Procedure Name Priority Date/Time Associated Diagnosis Comments HEMATOLOGY Routine 06/30/2024 documented in this encounter Results * (ABNORMAL) HEMATOLOGY (06/30/2024) Hemoglobin 6.3(L) 12.0 - 16.0 g/dL [facility] Hemoglobin x 3 18.9(L) 36.0 - 48.0 % [facility] 06/30/2024 07/01/2024 10: 49 AM EDT Narrative [facility] - 07/01/2024 Unless otherwise specified, test(s) performed at: [facility], [address] [place] [address] ASSISTANT AUDITOR: Dwayne Fuentes M.D. For any questions, please call customer service at [facility]:OTHER Resulting Agency Comment Specimen source: Blood Srinivas Agrawal MD LAB BLOOD ORDERABLES Final Result [facility] See order comments or contact performing lab Unknown, [place] documented in this encounter Visit Diagnoses Not on filedocumented in this encounter Care Teams Electrical Lineman Relationship Specialty Start Date End Date Marita Wetzel DO [address] [place] [address] PCP - General Family Medicine 11/14/22 documented as of this encounter
--- OUTSIDE RECORDS SUMMARY | 2025-03-18 11:38 | XMS_ITS | Encounter Summary ---
Author Organization [facility] Address [address] [place] [address] Phone Care Team Providers Care Seam Sewer Name Role Phone Marita Wetzel DO Primary Care Provider Unava ilable Encounter Details Date Type Department Care Team (Late st Contact Info) Description 01/21/2024 Documentation Only [facility] [address] [place] [phone] Pauline Aguayo [address] [place] [phone] Social History Tobacco Use Types Packs/Day Years [...] Of [facility] [address] [place] [phone] 07/12/2025 1:00 PM EDT Scheduled Only [facility] Access [place] [address] [place] [phone] documented as of this encounter Visit Diagnoses Not on filedocumented in this encounter Care Teams Seam Sewer Relationship Specialty Start Date End Date Marita Wetzel DO [address] [place] [address] PCP - General Family Medicine 11/14/22 documented as of this encounter
--- OUTSIDE RECORDS SUMMARY | 2025-03-18 11:38 | XMS_ITS | Encounter Summary ---
Author Organization [facility] Address [address] [place] [address] Phone Care Team Providers Care Supervisor Customer Complaint Service Name Role Phone Marita Wetzel DO Primary Care Provider Unava ilable Encounter Details Date Type Department Care Team (Late st Contact Info) Description 10/24/2023 Documentation Only [facility] [address] [place] [phone] [place], [place], [place] [address] [place] [phone] Social History Tobacco Use Types Packs/Day Years [...] [facility] - Vascular Access Center [address] [place] [phone] 07/12/2025 1:00 PM EDT Scheduled Only [facility] Center [address] [place] [phone] documented as of this encounter Visit Diagnoses Not on filedocumented in this encounter Care Teams Supervisor Customer Complaint Service Relationship Specialty Start Date End Date Marita Wetzel DO [address] [place] [address] PCP - General Family Medicine 11/14/22 documented as of this encounter
--- OUTSIDE RECORDS SUMMARY | 2025-03-18 11:38 | XMS_ITS | Encounter Summary ---
Author Organization [facility] Address [address] [place] [address] Phone Care Team Providers Care Job Checker Name Role Phone Marita Wetzel DO Primary Care Provider Unava ilable Encounter Details Date Type Department Care Team (Late st Contact Info) Description 12/31/2022 Documentation Only [facility] [address] [place] [phone] Candace Adam PA [address] [place] [address] [place] [address] Social History Tobacco Use Types Packs/Day Years [...] documented as of this encounter Functional Status documented as of this encounter Plan of Treatment Upcoming Encounters Date Type Department Care Team (Late st Contact Info) Description 04/05/2025 9:30 AM EST Clinical Support [facility] Access Center [address] [place] [phone] 07/12/2025 1:00 PM EDT Scheduled Only [facility] V[facility] Access [place] [address] [place] [phone] documented as of this encounter Visit Diagnoses Not on filedocumented in this encounter Care Teams Job Checker Relationship Specialty Start Date End Date Marita Wetzel DO [address] [place] [address] PCP - General Family Medicine 11/14/22 documented as of this encounter
--- OUTSIDE RECORDS SUMMARY | 2025-03-18 11:38 | XMS_ITS | Clinical Summary ---
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 47640 mL 12 02/10/20 24 Active Active Problems Problem Noted Date [...] Encounters Date Type Department Care Team Description 03/04/2025 9:00 AM EST Clinical Support [facility] [address] [place] [address] Db Neumann MD Stage 5 chronic kidney disease (HCC) [N18.5] (Primary Dx); Encounter for fitting and adjustment of vascular catheter [Z45.2] 03/02/2025 Treatment [facility] [address] [facility] [place] [address] Bernardo Doty MD End stage renal disease; Dependence on renal dialysis 02/28/2025 Treatment [facility] [address] [facility] [place] [address] Bernardo Doty MD End stage renal disease; Dependence on renal dialysis 02/23/2025 Orders Only [facility] [address] [facility] [place] [address] Provider, Hemal Ordering 02/23/2025 Treatment [facility] [address] [place] [address] Bernardo Doyt MD End stage renal disease; Dependence on renal dialysis 02/21/2025 Treatment [facility] [address] [facility] [place] [address] Bernardo Doty MD End stage renal disease; Dependence on renal dialysis 01/31/2025 Treatment [facility] [place] [place] [address] Bernardo Doty MD End stage renal disease; Dependence on renal dialysis 01/28/2025 Treatment [facility] [place] [address] [place] [address] Bernardo Doyt MD End stage renal disease; Dependence on renal dialysis 01/26/2025 9:30 AM EDT Clinical Support [facility], [facility] Vascular Access Center [address] [place] [address] Hazel Zepeda Encounter for fitting and adjustment of vascular catheter [Z45.2] (Primary Dx); End stage renal disease (HCC) [N18.6] 01/26/2025 Treatment [facility] [place] [address] [place] [address] Bernardo Doty MD End stage renal disease; Dependence on renal dialysis 01/24/2025 Treatment [facility] [place] [address] [place] [address] Bernardo Doty MD End stage renal disease; Dependence on renal dialysis 01/21/2025 Orders Only [facility] [place] [place] [address] Provider, Hemal Ordering 01/10/2025 Treatment [facility] [address] [place] [address] Bernardo Doty MD End stage renal disease; Dependence on renal dialysis 01/05/2025 Treatment [facility] [address] [place] [address] Bernardo Doty MD End stage renal disease; Dependence on renal dialysis 01/03/2025 Treatment [facility] [place] [address] [place] [address] Bernardo Doty MD End stage renal disease; Dependence on renal dialysis 12/29/2024 9:30 AM EDT Clinical Support [facility] [address] [place] [address] [place] [phone] Hazel Zepeda Encounter for fitting and adjustment of vascular catheter [Z45.2] (Primary Dx); Stage 5 chronic kidney disease (HCC) [N18.5] 12/29/2024 Orders Only [facility] [address] [address] Srinivas Agrawal MD 12/27/2024 Treatment [facility] [address] [address] Bernardo Doty MD End stage renal disease; Dependence on renal dialysis 12/22/2024 Telephone [facility] V[facility] Center [address] [place] [address] [place] [phone] Lakesha Sandoval 12/17/2024 Orders Only [facility] [address] [phone] Srinivas Agrawal MD from Last 3 Months [...] Sign Reading Time Taken Comments Blood Pressure 153/85 03/04/2025 4:12 PM EST Pulse 85 03/04/2025 4:12 PM EST Temperature 36.3 C (97.4 F) 02/04/2024 9:55 AM EDT Respiratory Rate - - Oxygen Saturation 97% 03/04/2025 4:12 PM EST Inhaled Oxygen Concentration - - Weight 56 [...] [facility] [address] [place] [address] [place] [address] 07/12/2025 1:00 PM EDT Scheduled Only [facility] [address] [place] [address] Health Maintenance Due Date Last Done Comments [...] Exam (Post-Transplant Patient) 03/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 Diabetes: Hemoglobin A1C 05/04/2025 025, 12/07/2024, 10/06/2024, Additional history exists Influenza Vaccine Completed 01/28/2025, , 01/23/2022, Additional history exists Pneumococcal Vaccine: 50+ Years Completed 02/01/2025, 05/03/2021, 01/05/2020, Additional history exists Pneumococcal Vaccine: Peds ( 0 to 5 Years) and At-Risk Patients (6 to 49 Years) Discontinued 02/01/2025, 05/03/2021, 01/05/2020, Additional history exists Procedures Procedure Name Priority Date/Time Associated Diagnosis Comments [facility] RESULTS Routine 02/23/2025 [facility] RESULTS Routine 01/21/2025 HEMATOLOGY Routine 12/29/2024 [facility] H[facility]AL LAB RESULTS Routine 12/22/2024 HD KINETICS Routine 12/22/2024 CHEMISTRY Routine 12/22/2024 POST CHEMISTRY Routine 12/22/2024 HEMATOLOGY Routine 12/22/2024 HEMATOLOGY Routine 12/17/2024 SPECIAL CHEMISTRY Routine 10/06/2024 from Last 3 Months or Most Recently Relevant to Health Maintenance Results * [facility] HEMAL Lab Results (02/23/2025) Only the most recent of3 resultswithin the time period is included. spKt/V Gotch 1.20 [facility] WSTDKT/V 2.1 [facility] eKt/V (Tattersall) 0.97 [facility] eKt/V Gotch 0.94 [facility] e Center eKdrt/V 0.94 [facility] PCR 42.07 [facility] spKt/V (Daugirdas II) 1.19 [facility] nPCR_HD 0.67 [facility] eNPCR 0.60 [facility] 02/23/2025 02/23/2025 [facility] Ordering Provider LAB BLOOD ORDERABLES Final Result [facility] Contact Performing lab Unknown, [place] * (ABNORMAL) HEMATOLOGY (12/29/2024) Only the most recent of3 resultswithin the time period is included. Hemoglobin 9.8(L) 12.0 - 16.0 g/dL [facility] Hemoglobin x 3 29.4(L) 36.0 - 48.0 % Vitals ([email or web address]) 12/29/2024 12/30/2024 9:3 2 AM EDT Narrative S[facility]RAE - 12/30/2024 Unless otherwise specified, test(s) performed at: [email or web address], [address] [place], [place] [id number] ACCOUNTS PAYABLE ASSISTANT: Dwayne Fuentes M.D. For any questions, please call customer service at FREQUENCY:OTHER Resulting Agency Comment Specimen source: Blood Srinivas Agrawal MD LAB BLOOD ORDERABLES Final Result Performing Organization Address [facility] Co de Phone Number [facility] See order comments or contact performing lab Unknown, [place] * HD KINETICS (12/22/2024) % Urea Reduction 73 65 - 80 % [facility] 12/22/2024 12/23/2024 1:2 8 PM EDT Narrative [facility] - 12/24/2024 Unless otherwise specified, test(s) performed at: [email or web address], [address] [place] [address] ACCOUNTS PAYABLE ASSISTANT: Dwayne Fuentes, M.D. For any questions, please call customer service at FREQUENCY:OTHER Resulting Agency Comment Specimen source: Plasma Srinivas Agrawal MD LAB BLOOD ORDERABLES Final Result Performing Organization Address [facility] de Phone Number [facility]E [facility] See order comments or contact performing lab Unknown, [place] * POST CHEMISTRY (12/22/2024) BUN Post Dialysis 11 6 - 19 mg/dL [facility] 12/22/2024 12/23/2024 1:2 8 PM EDT Narrative [facility] - 12/23/2024 Unless otherwise specified, test(s) performed at: [email or web address] [address] ACCOUNTS PAYABLE ASSISTANT: Dwayne Fuentes M.D. For any questions, please call customer service at FREQUENCY:OTHER Resulting Agency Comment Specimen source: Plasma Result [facility] Srinivas Agrawal MD LAB BLOOD ORDERABLES Final Result Performing Organization Address [facility] de Phone Number [email or web address] See order comments or contact performing lab Unknown, [place] * (ABNORMAL) [facility] Chemistry (12/22/2024) Pathologist [facility] BUN 40(H) 6 - 19 mg/dL [facility] 12/22/2024 12/23/2024 9:4 0 AM EDT Narrative [facility]E - 12/24/2024 Unless otherwise specified, test(s) performed at: [email or web address], [address] [place], [place] [id number] ACCOUNTS PAYABLE ASSISTANT: Dwayne Fuentes M.D. For any questions, please call customer service at FREQUENCY:OTHER Resulting Agency Comment Specimen source: Serum Result [facility] Srinivas Agrawal MD LAB BLOOD ORDERABLES Final Result Performing Organization Address [facility] de Phone Number [facility] See order comments or contact performing lab Unknown, [place] * (ABNORMAL) SPECIAL CHEMISTRY (10/06/2024) Hemoglobin A1C 6.1(H) 4.8 - 5.9 % [facility] 10/06/2024 10/07/2024 11: 36 AM EDT Narrative [facility]ANTY - 10/08/2024 Unless otherwise specified, test(s) performed at: [email or web address], [address] [place] [address] ACCOUNTS PAYABLE ASSISTANT: Dwayne Fuentes M.D. For any questions, please call customer service at FREQUENCY:MONTHLY Resulting Agency Comment Specimen source: Blood Srinivas Agrawal MD LAB BLOOD BANK TEST ORDERA BLES Final Result [email or web address] See order comments or contact performing lab [facility], [place] from Last 3 Months or Most Recently Relevant to Health Maintenance Insurance [facility] Medicare Medicare [facility] Care Teams Broom Builder Relationship Specialty Start Date End Date Marita Wetzel DO [address] [place] [address] PCP - General Family Medicine 11/14/22
--- OUTSIDE RECORDS SUMMARY | 2025-03-18 11:39 | XMS_ITS | Encounter Summary ---
Author Organization [facility] Address [address] [place] [address] Care Team Providers Care University President Name Role Phone Marita Wetzel DO Primary Care Provider +1- [phone] Encounter Details Date Type Department Care Team (Late st Contact Info) Description 05/12/2024 Lab Requisition [facility] - Main Lab [address] [facility] [place] [phone] Marily Gordillo MD [address] [place] [address] Chronic kidney disease, unspecified; Anemia, [...] unspecified documented in this encounter Care Teams University President Relationship Specialty Start Date End Date Marita Wetzel DO [address] [place] [address] PCP - General 01/09/23 documented as of this encounter
--- OUTSIDE RECORDS SUMMARY | 2025-03-18 11:39 | XMS_ITS | Encounter Summary ---
Author Organization [facility] Address [address] [place] [address] Care Team Providers Care Field Adjuster Name Role Phone Marita Wetzel DO Primary Care Provider +1- [phone] Encounter Details Date Type Department Care Team (Late st Contact Info) Description 04/10/2024 Lab Requisition [facility] - Main Lab [address] [facility] [place] [phone] Marily Gordillo MD [address] [place] [phone] Chronic embolism and thrombosis of unspecified vein; [...] documented in this encounter Care Teams Field Adjuster Relationship Specialty Start Date End Date Marita Wetzel DO [address] [place], [place] PCP - General 01/09/23 documented as of this encounter
--- OUTSIDE RECORDS SUMMARY | 2025-03-18 11:39 | XMS_ITS | Encounter Summary ---
Author Organization [facility] Address [address] [place] [address] Care Team Providers Care Concrete Boom Operator Name Role Phone Marita Wetzel DO Primary Care Provider +1- [phone] Encounter Details Date Type Department Care Team (Late st Contact Info) Description [address] [facility] - Main Lab [address] [facility] [employer] [place] [phone] Marily Gordillo MD [address] [place] [address] Chronic kidney disease, unspecified; Anemia, [...] documented in this encounter Care Teams Concrete Boom Operator Relationship Specialty Start Date End Date Marita Wetzel DO [address] [place] [address] PCP - General 01/09/23 documented as of this encounter
--- OUTSIDE RECORDS SUMMARY | 2025-03-18 11:39 | XMS_ITS | Encounter Summary ---
Author Organization [facility], Address [address] [place] [address] Phone Care Team Providers Care Enterprise Services Manager Name Role Phone Marita Wetzel DO Primary Care Provider Unava ilable Encounter Details Date Type Department Care Team (Late st Contact Info) Description 06/23/2023 Documentation Only [facility] [address] [place] [phone] [place], [place] [address] [place] [phone] Social History Tobacco Use Types Packs/Day Years [...] Support [facility] - Vascular Access Center [address] [phone] 07/12/2025 1:00 PM EDT Scheduled Only [facility] Vascular Access Center [address] [place] [phone] documented as of this encounter Visit Diagnoses Not on filedocumented in this encounter Care Teams Enterprise Services Manager Relationship Specialty Start Date End Date Marita Wetzel DO [address] [place] [address] PCP - General Family Medicine 11/14/22 documented as of this encounter
--- OUTSIDE RECORDS SUMMARY | 2025-03-18 11:39 | XMS_ITS | Encounter Summary ---
Author Organization [facility] Address [address] [place] [address] Phone Care Team Providers Care Senior Manufacturing Engineer Name Role Phone Marita Wetzel DO Primary Care Provider Unava ilable Encounter Details Date Type Department Care Team (Late st Contact Info) Description 07/29/2023 Documentation Only [facility] [address] [place] [phone] Pauline Aguayo [address] [place] [address] Social History Tobacco Use Types [...] [facility] Vascular Access [place] [address] [place] [phone] 07/12/2025 1:00 PM EDT Scheduled Only [facility] Vascular Access [place] [address] [place] [address] documented as of this encounter Visit Diagnoses Not on filedocumented in this encounter Care Teams Senior Manufacturing Engineer Relationship Specialty Start Date End Date Marita Wetzel DO [address] [place] [address] PCP - General Family Medicine 11/14/22 documented as of this encounter
--- OUTSIDE RECORDS SUMMARY | 2025-03-18 11:39 | XMS_ITS | Encounter Summary ---
Author Organization [facility] Address [address] [place] [address] Care Team Providers Care Counter Molder Name Role Phone Marita Wetzel Primary Care Provider +1- [phone] Encounter Details Date Type Department Care Team (Late st Contact Info) Description 04/30/2024 Lab Requisition [facility] - Main Lab [address] [place] [phone] Marily Gordillo MD [address] [place] [phone] Anemia, unspecified; Chronic embolism and thrombosis of [...] ORDERABLES Final Resul t Performing Organization Address [facility]/ZIP Co de Phone Number [facility] [address] [place] [address], [place] [phone] * (ABNORMAL) Ferritin (05/03/2024 6:09 AM EST) Ferritin 2,737(H) 8 - 252 ng/mL LAB CHEMISTRY METHOD 05/03/2024 10:59 AM EST [facility] Blood Venous blood specimen / Unknown Venipuncture / Unknown 05/03/2024 6:09 AM EST 05/03/2024 9:29 AM EST us Marily Gordillo MD LAB BLOOD ORDERABLES Final Resul t Performing Organization Address City/[facility]/ZIP Co de Phone Number [facility] [address] [place] [address], [place] [phone] documented in this encounter Visit Diagnoses Diagnosis Anemia, unspecified Chronic embolism and thrombosis of unspecified vein Acute kidney failure, unspecified (CMS/HCC V24) Acute kidney failure, unspecified documented in this encounter Care Teams Counter Molder Relationship Specialty Start Date End Date Marita Wetzel DO [address] [place] [address] PCP - General 01/09/23 documented as of this encounter
--- OUTSIDE RECORDS SUMMARY | 2025-03-18 11:39 | XMS_ITS | Encounter Summary ---
Author Organization [facility] Address [address] [place] [address] Phone Care Team Providers Care Microbiology Technician Name Role Phone Marita Wetzel DO Primary Care Provider Unava ilable Encounter Details Date Type Department Care Team (Late st Contact Info) Description 01/01/2024 Documentation Only [facility] [address] [place] [address] [place], [place], [place] [address] [place] [phone] Social History Tobacco Use Types Packs/Day Years [...] [facility] Vascular Access Center [address] [place] [phone] 07/12/2025 1:00 PM EDT Scheduled Only [facility] V[facility] Access [place] [address] [place] [phone] documented as of this encounter Visit Diagnoses Not on filedocumented in this encounter Care Teams Microbiology Technician Relationship Specialty Start Date End Date Marita Wetzel DO [address] [place] [address] PCP - General Family Medicine 11/14/22 documented as of this encounter
--- OUTSIDE RECORDS SUMMARY | 2025-03-18 11:39 | XMS_ITS | Encounter Summary ---
Author Organization [facility] Address [address] [place] [address] Phone Care Team Providers Care Domestic Travel Consultant Name Role Phone Marita Wetzel DO Primary Care Provider Unava ilable Encounter Details Date Type Department Care Team (Late st Contact Info) Description 06/12/2023 Documentation Only [facility] [address] [place] [phone] [place], [place], [place] [address] [place] [phone] Social History Tobacco Use Types Packs/Day Years [...] Support [facility] - Vascular Access Center [address] [place] [phone] 07/12/2025 1:00 PM EDT Scheduled Only [facility] Vascular Access Center [address] [place] [phone] documented as of this encounter Visit Diagnoses Not on filedocumented in this encounter Care Teams Domestic Travel Consultant Relationship Specialty Start Date End Date Marita Wetzel DO [address] [place] [address] PCP - General Family Medicine 11/14/22 documented as of this encounter
--- OUTSIDE RECORDS SUMMARY | 2025-03-18 11:39 | XMS_ITS | Encounter Summary ---
Author Organization [facility] Address [address] [place] [address] Care Team Providers Care Outside Sales Account Representative Name Role Phone Marita Wetzel Primary Care Provider +1- [phone] Encounter Details Date Type Department Care Team (Late st Contact Info) Description 04/02/2024 Lab Requisition [facility] - Main Lab [address] [facility] [place] [phone] Marily Gordillo MD [address] [place] [address] Chronic embolism and thrombosis of [...] - 20.0 ng/mL 04/07/2024 4:26 PM EST [facility] Comment: Additional Information: Toxic Level [...] at [facility], [address], [place] [address] Ashtyn Leigh MD, PhD - Coat Repair Inspector Blood Venous blood specimen / Unknown Venipuncture / Unknown 04/05/2024 6:56 AM EST 04/05/2024 10:25 AM EST us Marily Gordillo MD LAB BLOOD ORDERABLES Final Resul t [facility] [address] [place] [address] * (ABNORMAL) Renal function panel (04/05/2024 6:56 AM EST) Pathologist [facility] [place] Sodium 138 133 - 145 mmol/L LAB CHEMISTRY METHOD 04/05/2024 11:52 AM EST [facility] Potassium 5.0 3.5 - 5.5 mmol/L LAB CHEMISTRY METHOD 04/05/2024 11:52 AM EST [facility] Chloride 107 96 - 110 mmol/L LAB CHEMISTRY METHOD 04/05/2024 11:52 AM EST [facility] CO2 20(L) 21 - 32 mmol/L LAB CHEMISTRY METHOD 04/05/2024 11:52 AM [facility] Anion Gap 11 3 - 11 LAB CHEMISTRY METHOD 04/05/2024 11:52 AM [facility] Glucose 104(H) 70 - 100 mg/dL LAB CHEMISTRY METHOD 04/05/2024 11:52 AM [facility] BUN 56(H) 5 - 25 mg/dL LAB CHEMISTRY METHOD 04/05/2024 11:52 AM [facility] Creatinine 4.43(H) 0.50 - 1.10 mg/dL LAB CHEMISTRY METHOD 04/05/2024 11:52 AM [facility] eGFR 11(L) >=60 mL/min/1. 73m2 LAB CHEMISTRY METHOD 04/05/2024 11:52 AM [facility] Comment:Calculation based on the Chronic Kidney Disease Epidemiology Collaboration (CKD-EPI) equation refit without adjustment for race. BUN/Creatinine Ratio 12.6 LAB CHEMISTRY METHOD 04/05/2024 11:52 AM [facility] Albumin 1.9(L) 3.2 - 5.0 g/dL LAB CHEMISTRY METHOD 04/05/2024 11:52 AM [facility] Calcium 9.0 8.5 - 10.5 mg/dL LAB CHEMISTRY METHOD 04/05/2024 11:52 AM [facility] Phosphorus 3.1 2.5 - 4.5 mg/dL LAB CHEMISTRY METHOD 04/05/2024 11:52 AM [facility] Blood Venous blood specimen / Unknown Venipuncture / Unknown 04/05/2024 6:56 AM EST 04/05/2024 10:21 AM EST us Marily Gordillo MD LAB BLOOD ORDERABLES Final Resul t [facility] [address] [place] [address], * (ABNORMAL) Complete blood count (04/05/2024 6:56 AM EST) [facility] WBC 9.2 4.8 - 10.8 K/mcL LAB HEMETOLOGY METHOD 04/05/2024 10:42 AM [facility] RBC 2.50(L) 3.80 - 4.80 M/mcL LAB HEMETOLOGY METHOD 04/05/2024 10:42 AM [facility] Hemoglobin 6.8(L) 11.5 - 16.0 g/dL LAB HEMETOLOGY METHOD 04/05/2024 10:42 AM [facility] Hematocrit 24.8(L) 35.0 - 47.0 % LAB HEMETOLOGY METHOD 04/05/2024 10:42 AM [facility] MCV 99.6(H) 79.0 - 98.0 FL LAB HEMETOLOGY METHOD 04/05/2024 10:42 AM [facility] MCH 27.3 27.0 - 32.0 pcg LAB HEMETOLOGY METHOD 04/05/2024 10:42 AM [facility] MCHC 27.4(L) 32.0 - 37.0 g/dL LAB HEMETOLOGY METHOD 04/05/2024 10:42 AM [facility] RDW 16.7(H) 11.0 - 15.0 % LAB HEMETOLOGY METHOD 04/05/2024 10:42 AM [facility] Platelets 332 130 - 400 K/mcL LAB HEMETOLOGY METHOD 04/05/2024 10:42 AM [facility] MPV 10.2 7.0 - 11.0 FL LAB HEMETOLOGY METHOD 04/05/2024 10:42 AM [facility] NRBC 0.0 <1.0 % LAB HEMETOLOGY METHOD 04/05/2024 10:42 AM [facility] NRBC Absolute 0.00 <0.10 K/mcL LAB HEMETOLOGY METHOD 04/05/2024 10:42 AM EST [facility] Blood Venous blood specimen / Unknown Venipuncture / Unknown 04/05/2024 6:56 AM EST 04/05/2024 10:26 AM EST us Marily Gordillo MD LAB BLOOD ORDERABLES Final Resul t [facility] [address] [place] [address], [place] [phone] documented in this encounter Visit Diagnoses Diagnosis Chronic embolism and thrombosis of unspecified vein Acute kidney failure, unspecified (CMS/HCC V24) Acute kidney failure, unspecified documented in this encounter Care Teams Outside Sales Account Representative Relationship Specialty Start Date End Date Marita Wetzel DO [address] [place] [address] PCP - General 01/09/23 documented as of this encounter
--- OUTSIDE RECORDS SUMMARY | 2025-03-18 11:39 | XMS_ITS | Encounter Summary ---
Author Organization [facility] Address [address] [place] [address] Care Team Providers Care Survey Engineer Name Role Phone Marita Wetzel Primary Care Provider +1- [phone] Encounter Details Date Type Department Care Team (Late st Contact Info) Description 04/20/2024 Lab Requisition [facility] - Main Lab [address] [place] [phone] Marily Gordillo MD [address] [place] [address] Chronic kidney disease, unspecified; Anemia, [...] mmol/L LAB CHEMISTRY METHOD 04/22/2024 11:50 AM [facility] Chloride 112(H) 96 - 110 mmol/L LAB CHEMISTRY METHOD 04/22/2024 11:50 AM [facility] CO2 23 21 - 32 mmol/L LAB CHEMISTRY METHOD 04/22/2024 11:50 AM [facility] Anion Gap 8 3 - 11 LAB CHEMISTRY METHOD 04/22/2024 11:50 AM [facility] Glucose 135(H) 70 - 100 mg/dL LAB CHEMISTRY METHOD 04/22/2024 11:50 AM [facility] BUN 43(H) 5 - 25 mg/dL LAB CHEMISTRY METHOD 04/22/2024 11:50 AM [facility] Creatinine 3.79(H) 0.50 - 1.10 mg/dL LAB CHEMISTRY METHOD 04/22/2024 11:50 AM [facility] eGFR 13(L) >=60 mL/min/1. 73m2 LAB CHEMISTRY METHOD 04/22/2024 11:50 AM [facility] Comment:Calculation based on the Chronic Kidney Disease Epidemiology Collaboration (CKD-EPI) equation refit without adjustment for race. BUN/Creatinine Ratio 11.3 LAB CHEMISTRY METHOD 04/22/2024 11:50 AM [facility] Calcium 8.6 8.5 - 10.5 mg/dL LAB CHEMISTRY METHOD 04/22/2024 11:50 AM [facility] AST (SGOT) 9(L) 10 - 42 unit/L LAB CHEMISTRY METHOD 04/22/2024 11:50 AM [facility] ALT (SGPT) 9(L) 10 - 60 unit/L LAB CHEMISTRY METHOD 04/22/2024 11:50 AM [facility] Alkaline Phosphatase 59 42 - 121 unit/L LAB CHEMISTRY METHOD 04/22/2024 11:50 AM [facility] Total Protein 5.8(L) 6.0 - 8.0 g/dL LAB CHEMISTRY METHOD 04/22/2024 11:50 AM [facility] Albumin 2.0(L) 3.2 - 5.0 g/dL LAB CHEMISTRY METHOD 04/22/2024 11:50 AM [facility] Total Bilirubin 0.3 0.0 - 1.4 mg/dL LAB CHEMISTRY METHOD 04/22/2024 11:50 AM [facility] Blood Venous blood specimen / Unknown Venipuncture / Unknown 04/22/2024 7:09 AM EST 04/22/2024 9:42 AM EST Marily Gordillo MD LAB BLOOD ORDERABLES Final Resul t [facility] [address] [place] [address], * (ABNORMAL) Complete blood count (04/22/2024 7:09 AM EST) WBC 8.2 4.8 - 10.8 K/mcL LAB HEMETOLOGY METHOD 04/22/2024 10:44 AM [facility] RBC 2.80(L) 3.80 - 4.80 M/[facility] LAB HEMETOLOGY METHOD 04/22/2024 10:44 AM [facility] Hemoglobin 7.8(L) 11.5 - 16.0 g/dL LAB HEMETOLOGY METHOD 04/22/2024 10:44 AM [facility] Hematocrit 27.7(L) 35.0 - 47.0 % LAB HEMETOLOGY METHOD 04/22/2024 10:44 AM [facility] MCV 97.5 79.0 - 98.0 FL LAB HEMETOLOGY METHOD 04/22/2024 10:44 AM [facility] MCH 27.5 27.0 - 32.0 pcg LAB HEMETOLOGY METHOD 04/22/2024 10:44 AM [facility] MCHC 28.2(L) 32.0 - 37.0 g/dL LAB HEMETOLOGY METHOD 04/22/2024 10:44 AM EST [facility] RDW 16.5(H) 11.0 - 15.0 % LAB HEMETOLOGY METHOD 04/22/2024 10:44 AM [facility] Platelets 189 130 - 400 K/mcL LAB HEMETOLOGY METHOD 04/22/2024 10:44 AM [facility] MPV 10.7 7.0 - 11.0 FL LAB HEMETOLOGY METHOD 04/22/2024 10:44 AM [facility] NRBC 0.0 <1.0 % LAB HEMETOLOGY METHOD 04/22/2024 10:44 AM [facility] NRBC Absolute 0.00 <0.10 K/mcL LAB HEMETOLOGY METHOD 04/22/2024 10:44 AM [facility] Blood Venous blood specimen / Unknown Venipuncture / Unknown 04/22/2024 7:09 AM EST 04/22/2024 9:43 AM EST us Marily Gordillo MD LAB BLOOD ORDERABLES Final Resul t [facility] [address] [place] [address], documented in this encounter Visit Diagnoses Diagnosis Chronic kidney disease, unspecified Anemia, unspecified documented in this encounter Care Teams Survey Engineer Relationship Specialty Start Date End Date Marita Wetzel DO [address] [place] [address] PCP - General 01/09/23 documented as of this encounter
--- OUTSIDE RECORDS SUMMARY | 2025-03-18 11:39 | XMS_ITS | Encounter Summary ---
Author Organization [facility] Address [address] [place] [address] Care Team Providers Care Psychologist Name Role Phone Marita Wetzel Primary Care Provider +1- [phone] Encounter Details Date Type Department Care Team (Late st Contact Info) Description 03/29/2024 Lab Requisition [facility] - Main Lab 299 [facility] [place] [address] Catalina Burr MD [address] [place] [address] End stage renal disease (CMS/HCC V24, CMS/HCC [...] AM EST End stage renal disease (CMS/[facility]) documented in this encounter Results * Tacrolimus level (03/29/2024 6:53 AM EST) Tacrolimus Level 6.8 5.0 - 20.0 ng/mL 03/31/2024 12:22 PM EST [facility] Comment: Additional Information: Toxic Level [...] and the performance characteristics determined by [facility]. This confirmation testing has not been cleared or approved by the FDA. The laboratory is regulated under CLIA as qualified to perform high-complexity testing. This test is used for patient testing purposes. It should not be regarded as investigational or for research. Test performed at [facility], [address] , [place] [address] Ashtyn Leigh MD, PhD - Qualitative Executive Researcher Blood Venous blood specimen / Unknown Venipuncture / Unknown 03/29/2024 6:53 AM EST 03/29/2024 8:32 AM EST us Catalina Burr MD LAB BLOOD ORDERABLES Final Resul t [facility] [address] [place] [address] * (ABNORMAL) Renal function panel (03/29/2024 6:53 AM EST) Sodium 140 133 - 145 mmol/L LAB CHEMISTRY METHOD 03/29/2024 10:07 AM EST [facility] Potassium 3.9 3.5 - 5.5 mmol/L LAB CHEMISTRY METHOD 03/29/2024 10:07 AM EST [facility] Chloride 109 96 - 110 mmol/L LAB CHEMISTRY METHOD 03/29/2024 10:07 AM [facility] CO2 20(L) 21 - 32 mmol/L LAB CHEMISTRY METHOD 03/29/2024 10:07 AM [facility] Anion Gap 11 3 - 11 LAB CHEMISTRY METHOD 03/29/2024 10:07 AM [facility] Glucose 146(H) 70 - 100 mg/dL LAB CHEMISTRY METHOD 03/29/2024 10:07 AM [facility] BUN 42(H) 5 - 25 mg/dL LAB CHEMISTRY METHOD 03/29/2024 10:07 AM [facility] Creatinine 3.47(H) 0.50 - 1.10 mg/dL LAB CHEMISTRY METHOD 03/29/2024 10:07 AM [facility] eGFR 14(L) >=60 mL/min/1. 73m2 LAB CHEMISTRY METHOD 03/29/2024 10:07 AM [facility] Comment:Calculation based on the Chronic Kidney Disease Epidemiology Collaboration (CKD-EPI) equation refit without adjustment for race. BUN/Creatinine Ratio 12.1 LAB CHEMISTRY METHOD 03/29/2024 10:07 AM [facility] Albumin 2.0(L) 3.2 - 5.0 g/dL LAB CHEMISTRY METHOD 03/29/2024 10:07 AM [facility] Calcium 8.8 8.5 - 10.5 mg/dL LAB CHEMISTRY METHOD 03/29/2024 10:07 AM [facility] Phosphorus 2.5 2.5 - 4.5 mg/dL LAB CHEMISTRY METHOD 03/29/2024 10:07 AM [facility] Blood Venous blood specimen / Unknown Venipuncture / Unknown 03/29/2024 6:53 AM EST 03/29/2024 8:32 AM EST us Catalina Burr MD LAB BLOOD ORDERABLES Final Resul t [facility] [address] [place] [address], [place] [phone] * (ABNORMAL) Complete blood count (03/29/2024 6:53 AM EST) WBC 11.0(H) 4.8 - 10.8 K/mcL LAB HEMETOLOGY METHOD 03/29/2024 9:47 AM [facility] RBC 2.80(L) 3.80 - 4.80 M/[facility] LAB HEMETOLOGY METHOD 03/29/2024 9:47 AM [facility] Hemoglobin 7.7(L) 11.5 - 16.0 g/dL LAB HEMETOLOGY METHOD 03/29/2024 9:47 AM [facility] Hematocrit 27.0(L) 35.0 - 47.0 % LAB HEMETOLOGY METHOD 03/29/2024 9:47 AM [facility] MCV 97.8 79.0 - 98.0 FL LAB HEMETOLOGY METHOD 03/29/2024 9:47 AM [facility] MCH 27.9 27.0 - 32.0 pcg LAB HEMETOLOGY METHOD 03/29/2024 9:47 AM [facility] MCHC 28.5(L) 32.0 - 37.0 g/dL LAB HEMETOLOGY METHOD 03/29/2024 9:47 AM [facility] RDW 17.5(H) 11.0 - 15.0 % LAB HEMETOLOGY METHOD 03/29/2024 9:47 AM [facility] Platelets 301 130 - 400 K/[facility] LAB HEMETOLOGY METHOD 03/29/2024 9:47 AM [facility] MPV 10.3 7.0 - 11.0 FL LAB HEMETOLOGY METHOD 03/29/2024 9:47 AM [facility] NRBC 0.0 <1.0 % LAB HEMETOLOGY METHOD 03/29/2024 9:47 AM [facility] NRBC Absolute 0.00 <0.10 K/mcL LAB HEMETOLOGY METHOD 03/29/2024 9:47 AM [facility] Blood Venous blood specimen / Unknown Venipuncture / Unknown 03/29/2024 6:53 AM EST 03/29/2024 8:32 AM EST us Catalina Burr MD LAB BLOOD ORDERABLES Final Resul t [facility] [address] [place] [address], documented in this encounter Visit Diagnoses Diagnosis End stage renal disease (CMS/HCC V24, CMS/HCC V28) End stage renal disease documented in this encounter Care Teams Psychologist Relationship Specialty Start Date End Date Marita Weztel DO [address] [place] [address] PCP - General 01/09/23 documented as of this encounter
--- OUTSIDE RECORDS SUMMARY | 2025-03-18 11:39 | XMS_ITS | Encounter Summary ---
Author Organization [facility] Address [address] [place] [address] Care Team Providers Care Remarketing Rep Name Role Phone Marita Wetzel Primary Care Provider +1- [phone] Encounter Details Date Type Department Care Team (Late st Contact Info) Description 03/12/2024 Lab Requisition [facility] - Main Lab 299 [facility] [place] [address] Catalina Burr MD [address] [place], [place] [id number] Chronic embolism and thrombosis of unspecified vein; [...] - 20.0 ng/mL 03/17/2024 1:34 PM EST [facility] Comment: Additional Information: Toxic Level [...] for research. Test performed at [facility], [address], [place] [address] Ashtyn Leigh MD, PhD - Blanching Machine Operator Blood Venous blood specimen / Unknown Venipuncture / Unknown 03/15/2024 8:20 AM EST 03/15/2024 10:20 AM EST Catalina Burr MD LAB BLOOD ORDERABLES Final Resul t [facility] [address] [place] [address] * (ABNORMAL) Renal function panel (03/15/2024 8:20 AM EST) Pathologist [facility] Sodium 139 133 - 145 mmol/L LAB CHEMISTRY METHOD 03/15/2024 11:31 AM EST [facility] Potassium 5.6(H) 3.5 - 5.5 mmol/L LAB CHEMISTRY METHOD 03/15/2024 11:31 AM EST [facility] Chloride 108 96 - 110 mmol/L LAB CHEMISTRY METHOD 03/15/2024 11:31 AM EST [facility] CO2 19(L) 21 - 32 mmol/L LAB CHEMISTRY METHOD 03/15/2024 11:31 AM [facility] Anion Gap 12(H) 3 - 11 LAB CHEMISTRY METHOD 03/15/2024 11:31 AM [facility] Glucose 105(H) 70 - 100 mg/dL LAB CHEMISTRY METHOD 03/15/2024 11:31 AM [facility] BUN 36(H) 5 - 25 mg/dL LAB CHEMISTRY METHOD 03/15/2024 11:31 AM [facility] Creatinine 3.97(H) 0.50 - 1.10 mg/dL LAB CHEMISTRY METHOD 03/15/2024 11:31 AM [facility] eGFR 12(L) >=60 mL/min/1. 73m2 LAB CHEMISTRY METHOD 03/15/2024 11:31 AM [facility] Comment:Calculation based on the Chronic Kidney Disease Epidemiology Collaboration (CKD-EPI) equation refit without adjustment for race. BUN/Creatinine Ratio 9.1 LAB CHEMISTRY METHOD 03/15/2024 11:31 AM [facility] Albumin 2.6(L) 3.2 - 5.0 g/dL LAB CHEMISTRY METHOD 03/15/2024 11:31 AM [facility] Calcium 9.5 8.5 - 10.5 mg/dL LAB CHEMISTRY METHOD 03/15/2024 11:31 AM [facility] Phosphorus 4.0 2.5 - 4.5 mg/dL LAB CHEMISTRY METHOD 03/15/2024 11:31 AM [facility] Blood Venous blood specimen / Unknown Venipuncture / Unknown 03/15/2024 8:20 AM EST 03/15/2024 10:16 AM EST us Catalina Burr MD LAB BLOOD ORDERABLES Final Resul t [facility] [address] [place] [address], [place] [phone] documented in this encounter Visit Diagnoses Diagnosis Chronic embolism and thrombosis of unspecified vein Acute kidney failure, unspecified (CMS/[facility] V24) Acute kidney failure, unspecified Type 2 diabetes mellitus without complications ([facility] V24, CMS/[facility] V28) documented in this encounter Care Teams Remarketing Rep Relationship Specialty Start Date End Date Marita Wetzel DO [address] [place] [address] PCP - General 01/09/23 documented as of this encounter
--- OUTSIDE RECORDS SUMMARY | 2025-03-18 11:39 | XMS_ITS | Encounter Summary ---
Author Organization [facility] Address [address] [place] [address] Care Team Providers Care Wafer Fabrication Technician Name Role Phone Mary JaneMarita yousif Primary Care Provider +1- [phone] Encounter Details Date Type Department Care Team (Late st Contact Info) Description 02/24/2024 Lab Requisition [facility] - Main Lab 299 [facility] [place] [address] Norbert Lopez MD [address] [facility] 204 [facility] [phone] Encounter for other specified [...] Travel phlebotomy fee (02/24/2024 12:45 PM EST) [facility] TRAVEL PHLEBOTOMY FEE Completed 02/24/2024 2:01 PM EST [facility] Blood Venous blood specimen / Unknown Venipuncture / Unknown 02/24/2024 12:45 PM EST 02/24/2024 1:29 PM EST Norbert Lopez MD LAB BLOOD ORDERABLES Final Resul t Performing Organization Address [facility] Co de Phone Number [facility] [address] [place] [address], [place] [phone] * (ABNORMAL) Heparin and low molecular weight anti Xa level (02/24/2024 12:45 PM EST) [facility] Heparin Anti-Xa 0.28(L) 0.30 - 0.70 I [...] ORDERABLES Final Resul t Performing Organization Address [facility]/ZIP Co de Phone Number [facility] [address] [place] [address], [place] [phone] * (ABNORMAL) Basic metabolic panel (02/24/2024 12:45 PM EST) [facility] Sodium 137 133 - 145 mmol/L LAB CHEMISTRY METHOD 02/24/2024 3:10 PM [facility] Potassium 3.7 3.5 - 5.5 mmol/L LAB CHEMISTRY METHOD 02/24/2024 3:10 PM [facility] Chloride 104 96 - 110 mmol/L LAB CHEMISTRY METHOD 02/24/2024 3:10 PM [facility] CO2 22 21 - 32 mmol/L LAB CHEMISTRY METHOD 02/24/2024 3:10 PM [facility] Anion Gap 11 3 - 11 LAB CHEMISTRY METHOD 02/24/2024 3:10 PM [facility] Glucose 163(H) 70 - 100 mg/dL LAB CHEMISTRY METHOD 02/24/2024 3:10 PM [facility] BUN 33(H) 5 - 25 mg/dL LAB CHEMISTRY METHOD 02/24/2024 3:10 PM [facility] Creatinine 3.25(H) 0.50 - 1.10 mg/dL LAB CHEMISTRY METHOD 02/24/2024 3:10 PM [facility] eGFR 15(L) >=60 mL/min/1. 73m2 LAB CHEMISTRY METHOD 02/24/2024 3:10 PM [facility] Comment:Calculation based on the Chronic Kidney Disease Epidemiology Collaboration (CKD-EPI) equation refit without adjustment for race. BUN/Creatinine Ratio 10.2 LAB CHEMISTRY METHOD 02/24/2024 3:10 PM [facility] Calcium 9.4 8.5 - 10.5 mg/dL LAB CHEMISTRY METHOD 02/24/2024 3:10 PM [facility] Blood Venous blood specimen / Unknown Venipuncture / Unknown 02/24/2024 12:45 PM EST 02/24/2024 1:29 PM EST us Norbert Lopez MD LAB BLOOD ORDERABLES Final Resul t [facility] [address] [place] [address], * (ABNORMAL) Complete blood count (02/24/2024 12:45 PM EST) [facility] WBC 11.3(H) 4.8 - 10.8 K/mcL LAB HEMETOLOGY METHOD 02/24/2024 1:38 PM [facility] RBC 3.30(L) 3.80 - 4.80 M/mcL LAB HEMETOLOGY METHOD 02/24/2024 1:38 PM [facility] Hemoglobin 9.2(L) 11.5 - 16.0 g/dL LAB HEMETOLOGY METHOD 02/24/2024 1:38 PM [facility] Hematocrit 31.3(L) 35.0 - 47.0 % LAB HEMETOLOGY METHOD 02/24/2024 1:38 PM [facility] MCV 95.4 79.0 - 98.0 FL LAB HEMETOLOGY METHOD 02/24/2024 1:38 PM [facility] MCH 28.0 27.0 - 32.0 pcg LAB HEMETOLOGY METHOD 02/24/2024 1:38 PM [facility] MCHC 29.4(L) 32.0 - 37.0 g/dL LAB HEMETOLOGY METHOD 02/24/2024 1:38 PM [facility] RDW 16.6(H) 11.0 - 15.0 % LAB HEMETOLOGY METHOD 02/24/2024 1:38 PM [facility] Platelets 278 130 - 400 K/mcL LAB HEMETOLOGY METHOD 02/24/2024 1:38 PM [facility] MPV 10.7 7.0 - 11.0 FL LAB HEMETOLOGY METHOD 02/24/2024 1:38 PM [facility] NRBC 0.0 <1.0 [...] t [facility] [address] [place] [address], documented in this encounter Visit Diagnoses Diagnosis Encounter for other specified prophylactic measures Acute kidney failure, unspecified (CMS/HCC V24) Acute kidney failure, unspecified documented in this encounter Care Teams Wafer Fabrication Technician Relationship Specialty Start Date End Date Marita Wetzel DO [address] [place] [address] PCP - General 01/09/23 documented as of this encounter
--- OUTSIDE RECORDS SUMMARY | 2025-03-18 11:39 | XMS_ITS | Encounter Summary ---
Author Organization [facility] Address [address] [place] [address] Care Team Providers Care Business Trainer Name Role Phone Marita Wetzel DO Primary Care Provider +1- [phone] Encounter Details Date Type Department Care Team (Late st Contact Info) Description 04/28/2024 Lab Requisition [facility] - Main Lab 299 [facility] [place] [id number] Marily Gordillo MD [address] [place] [address] Chronic kidney disease, unspecified; Anemia, [...] unspecified documented in this encounter Care Teams Business Trainer Relationship Specialty Start Date End Date Marita Wetzel DO [address] [place] [address] PCP - General 01/09/23 documented as of this encounter
--- OUTSIDE RECORDS SUMMARY | 2025-03-18 11:39 | XMS_ITS | Encounter Summary ---
Author Organization [facility], Address [address] [place] [address] Phone Care Team Providers Care Dermatology Physician Assistant Name Role Phone Marita Wetzel DO Primary Care Provider Unava ilable Encounter Details Date Type Department Care Team (Late st Contact Info) Description 04/17/2024 Documentation Only [facility], [address] [place] [address] [place], [place], [place] [address] [place] [address] Social History Tobacco Use Types [...] as of this encounter Functional Status * BP Answer Date of Assessment Author 143/55 04/20/2024 12:51 PM EST Esvin Zepeda * BP Location Answer Date of Assessment Author Right upper arm 04/20/2024 12:51 PM EST Esvin Zepeda ynn * BP Answer Date of Assessment Author 143/55 04/20/2024 12:51 PM EST Duane L ynn * BP Location Answer Date of Assessment Author Right upper arm 04/20/2024 12:51 PM Esvin Tamayo documented as of this encounter Plan of Treatment Upcoming Encounters Date Type Department Care Team (Late st Contact Info) Description 04/05/2025 9:30 AM EST Clinical Support [facility] [address] [place] [address] [place] [address] 07/12/2025 1:00 PM EDT Scheduled Only [facility] [address] [place] [address] documented as of this encounter Visit Diagnoses Not on filedocumented in this encounter Care Teams Dermatology Physician Assistant Relationship Specialty Start Date End Date Marita Wetzel DO [address] [place] [address] PCP - General Family Medicine 11/14/22 documented as of this encounter
--- OUTSIDE RECORDS SUMMARY | 2025-03-18 11:39 | XMS_ITS | Encounter Summary ---
Author Organization [facility] Address [address] [place] [address] Care Team Providers Care Cake Press Operator Helper Name Role Phone Mary JaneMarita yousif Primary Care Provider +1- [phone] Encounter Details Date Type Department Care Team (Late st Contact Info) Description 03/19/2024 Lab Requisition [facility] - Main Lab [address] [facility] [place] [address] Catalina Burr MD [address] [place] [address] Chronic embolism and thrombosis of unspecified vein; [...] - 20.0 ng/mL 03/24/2024 1:11 PM EST [facility] Comment: Additional Information: Toxic Level > [...] characteristics determined by [facility]. This confirmation testing has not been cleared or approved by the FDA. The laboratory is regulated under CLIA as qualified to perform high-complexity testing. This test is used for patient testing purposes. It should not be regarded as investigational or for research. Test performed at [facility], [address], [place], [place] [id number] Ashtyn Leigh MD, PhD - Screen Handler Blood Venous blood specimen / Unknown Venipuncture / Unknown 03/22/2024 6:50 AM EST 03/22/2024 8:05 AM EST us Catalina Burr MD LAB BLOOD ORDERABLES Final Resul t [facility] [address] [place] [address] * (ABNORMAL) Renal function panel (03/22/2024 6:50 AM EST) Sodium 138 133 - 145 mmol/L LAB CHEMISTRY METHOD 03/22/2024 8:55 AM EST [facility] Potassium 4.6 3.5 - [...] Resul t [facility] [address] [place] [address], * (ABNORMAL) Complete blood count (03/22/2024 6:50 AM EST) WBC 10.4 4.8 - 10.8 K/mcL LAB HEMETOLOGY METHOD 03/22/2024 8:32 AM EST [facility] RBC 2.80(L) 3.80 [...] LAB HEMETOLOGY METHOD 03/22/2024 8:32 AM EST [facility] NRBC 0.0 <1.0 % LAB HEMETOLOGY METHOD 03/22/2024 8:32 AM EST [facility] NRBC Absolute 0.00 <0.10 K/mcL LAB HEMETOLOGY METHOD 03/22/2024 8:32 AM EST [facility] Blood Venous blood specimen / Unknown Venipuncture / Unknown 03/22/2024 6:50 AM EST 03/22/2024 8:05 AM EST us Catalina Burr MD LAB BLOOD ORDERABLES Final Resul t [facility] [address] [place] [address], [place] [phone] documented in this encounter Visit Diagnoses Diagnosis Chronic embolism and thrombosis of unspecified vein Acute kidney failure, unspecified (CMS/HCC V24) Acute kidney failure, unspecified Type 2 diabetes mellitus without complications (CMS/HCC V24, CMS/HCC V28) documented in this encounter Care Teams Cake Press Operator Helper Relationship Specialty Start Date End Date Marita Wetzel DO [address] [place] [address] PCP - General 01/09/23 documented as of this encounter
--- OUTSIDE RECORDS SUMMARY | 2025-03-18 11:39 | XMS_ITS | Encounter Summary ---
Author Organization [facility] Address [address] [place] [address] Care Team Providers Care Jewelry Jobber Name Role Phone Marita Wetzel Primary Care Provider +1- [phone] Encounter Details Date Type Department Care Team (Late st Contact Info) Description 04/23/2024 Lab Requisition [facility] - Main Lab [address] [place] [phone] Marily Gordillo MD [address] [place] [address] Chronic embolism and thrombosis of [...] mmol/L LAB CHEMISTRY METHOD 04/26/2024 9:11 AM [facility] CO2 27 21 - 32 mmol/L LAB CHEMISTRY METHOD 04/26/2024 9:11 AM [facility] Anion Gap 7 3 - 11 LAB CHEMISTRY METHOD 04/26/2024 9:11 AM [facility] Glucose 80 70 - 100 mg/dL LAB CHEMISTRY METHOD 04/26/2024 9:11 AM [facility] BUN 29(H) 5 - 25 mg/dL LAB CHEMISTRY METHOD 04/26/2024 9:11 AM [facility] Creatinine 3.36(H) 0.50 - 1.10 mg/dL LAB CHEMISTRY METHOD 04/26/2024 9:11 AM [facility] eGFR 15(L) >=60 mL/min/1. 73m2 LAB CHEMISTRY METHOD 04/26/2024 9:11 AM [facility] Comment:Calculation based on the Chronic Kidney Disease Epidemiology Collaboration (CKD-EPI) equation refit without adjustment for race. BUN/Creatinine Ratio 8.6 LAB CHEMISTRY METHOD 04/26/2024 9:11 AM [facility] Albumin 2.1(L) 3.2 - 5.0 g/dL LAB CHEMISTRY METHOD 04/26/2024 9:11 AM [facility] Calcium 8.7 8.5 - 10.5 mg/dL LAB CHEMISTRY METHOD 04/26/2024 9:11 AM [facility] Phosphorus 2.5 2.5 - 4.5 mg/dL LAB CHEMISTRY METHOD 04/26/2024 9:11 AM [facility] Blood Venous blood specimen / Unknown Venipuncture / Unknown 04/26/2024 6:18 AM EST 04/26/2024 8:28 AM EST Marily Gordillo MD LAB BLOOD ORDERABLES Final Resul t [facility] [address] [place] [address], documented in this encounter Visit Diagnoses Diagnosis Chronic embolism and thrombosis of unspecified vein Acute kidney failure, unspecified (CMS/HCC V24) Acute kidney failure, unspecified documented in this encounter Care Teams Jewelry Jobber Relationship Specialty Start Date End Date Marita Wetzel DO [address] [place] [address] PCP - General 01/09/23 documented as of this encounter
--- OUTSIDE RECORDS SUMMARY | 2025-03-18 11:39 | XMS_ITS | Encounter Summary ---
Author Organization [facility], Address [address] [place] [address] Phone Care Team Providers Care Director Of Strategic Sourcing Name Role Phone Marita Wetzel DO Primary Care Provider Unava ilable Reason for Visit * Reason Comments Med Refill Encounter Details Date Type Department Care Team (Late Contact Info) Description 05/08/2021 Refill [facility] [address] [place] [phone] Bernardo Doty MD [address] [facility] [place] [phone] Social History Tobacco Use Types Packs/Day Years [...] [facility] [address] [place] [phone] 07/12/2025 1:00 PM EDT Scheduled Only [facility] [address] [place] [address] documented as of this encounter Visit Diagnoses Not on filedocumented in this encounter Care Teams Director Of Strategic Sourcing Relationship Specialty Start Date End Date Marita Wetzel DO [address] [place] [address] PCP - General Family Medicine 11/14/22 documented as of this encounter
--- OUTSIDE RECORDS SUMMARY | 2025-03-18 11:39 | XMS_ITS | Encounter Summary ---
Author Organization [facility] Address [address] [place] [address] Care Team Providers Care Cut Off Sawyer Log Name Role Phone Marita Wetzel DO Primary Care Provider +1- [phone] Encounter Details Date Type Department Care Team (Late st Contact Info) Description 05/15/2024 Lab Requisition [facility] - Main Lab [address] [facility] [place] [phone] Marily Gordillo MD [address] [place] [phone] Chronic embolism and thrombosis of unspecified vein; [...] documented in this encounter Care Teams Cut Off Sawyer Log Relationship Specialty Start Date End Date Marita Wetzel DO [address] [place], [place] PCP - General 01/09/23 documented as of this encounter
--- OUTSIDE RECORDS SUMMARY | 2025-03-18 11:39 | XMS_ITS | Encounter Summary ---
Author Organization [facility], Address [address] [place] [address] Phone Care Team Providers Care Fire Dispatcher Name Role Phone Marita Wetzel DO Primary Care Provider Unava ilable Encounter Details Date Type Department Care Team (Late st Contact Info) Description 12/06/2022 Documentation Only [facility] [address] [phone] [place], [place] [address] [place] [phone] Social History Tobacco Use Types Packs/Day Years [...] Support [facility] [address] [phone] 07/12/2025 1:00 PM EDT Scheduled Only [facility] [address] [address] documented as of this encounter Visit Diagnoses Not on filedocumented in this encounter Care Teams Fire Dispatcher Relationship Specialty Start Date End Date Marita Wetzel DO [address] [place] [address] PCP - General Family Medicine 11/14/22 documented as of this encounter
--- OUTSIDE RECORDS SUMMARY | 2025-03-18 11:39 | XMS_ITS | Encounter Summary ---
Author Organization [facility] Address [address] [place] [address] Care Team Providers Care Toys And Games Hand Finisher Name Role Phone Marita Wetzel Primary Care Provider +1- [phone] Encounter Details Date Type Department Care Team (Late st Contact Info) Description 03/01/2024 Lab Requisition [facility] - Main Lab [address] [facility] [place] [address] Catalina Burr MD [address] [place], [place] [phone] End stage renal disease (CMS/HCC V24, CMS/HCC [...] (ABNORMAL) Ferritin (03/01/2024 6:56 AM EST) Pathologist [facility] Ferritin 2,736(H) 8 - 252 ng/mL LAB CHEMISTRY METHOD 03/01/2024 11:27 AM EST [facility] Blood Venous blood specimen / Unknown Venipuncture / Unknown 03/01/2024 6:56 AM EST 03/01/2024 9:07 AM EST Catalina Burr MD LAB BLOOD ORDERABLES Final Resul t Performing Organization Address City/[facility]/ZIP Co de Phone Number [facility] [address] [place] [address], [place] [phone] * (ABNORMAL) Iron (03/01/2024 6:56 AM EST) [facility] Iron 29(L) 40 - 150 mcg/dL LAB CHEMISTRY METHOD 03/01/2024 11:22 AM EST [facility] Blood Venous blood specimen / Unknown Venipuncture / Unknown 03/01/2024 6:56 AM EST 03/01/2024 9:07 AM EST us Catalina Burr MD LAB BLOOD ORDERABLES Final Resul t [facility] [address] [place] [address], [place] [phone] * Tacrolimus level (03/01/2024 6:56 AM EST) [facility] Tacrolimus Level 5.2 5.0 - 20.0 ng/mL 03/04/2024 12:[address] [facility] Comment: Additional Information: Toxic [...] developed and the performance characteristics determined by [facility]. This confirmation testing has not been cleared or approved by the FDA. The laboratory is regulated under CLIA as qualified to perform high-complexity testing. This test is used for patient testing purposes. It should not be regarded as investigational or for research. Test performed at [facility], [address] , [place] [address] Ashtyn Leigh MD, PhD - Primary Special Educator Blood Venous blood specimen / Unknown Venipuncture / Unknown 03/01/2024 6:56 AM EST 03/01/2024 9:07 AM EST us Catalina Burr MD LAB BLOOD ORDERABLES Final Resul t [facility] [address] [place] [address] * (ABNORMAL) Renal function panel (03/01/2024 6:56 [...] t [facility] [address] [place] [address], * (ABNORMAL) Complete blood count (03/01/2024 6:56 AM EST) [facility] WBC 10.2 4.8 - 10.8 K/mcL LAB [...] 03/01/2024 10:46 AM [facility] RDW 16.7(H) 11.0 - 15.0 % LAB HEMETOLOGY METHOD 03/01/2024 10:46 AM [facility] Platelets 235 130 - 400 K/mcL LAB HEMETOLOGY METHOD 03/01/2024 10:46 AM [facility] MPV 10.8 7.0 - 11.0 FL LAB HEMETOLOGY METHOD 03/01/2024 10:46 AM [facility] NRBC 0.0 [...] t [facility] [address] [place] [address], documented in this encounter Visit Diagnoses Diagnosis End stage renal disease ([facility] V24, [facility] V28) End stage renal disease Type 2 diabetes mellitus without complications ([facility] V24, [facility] V28) documented in this encounter Care Teams Toys And Games Hand Finisher Relationship Specialty Start Date End Date Marita Wetzel DO [address] [place] [address] PCP - General 01/09/23 documented as of this encounter
--- OUTSIDE RECORDS SUMMARY | 2025-03-18 11:39 | XMS_ITS | Encounter Summary ---
Author Organization [facility] Address [address] [place] [address] Care Team Providers Care Photovoltaic Installer Name Role Phone Marita Wetzel DO Primary Care Provider +1- [phone] Encounter Details Date Type Department Care Team (Late st Contact Info) Description 04/29/2024 Lab Requisition [facility] - Main Lab [address] [facility] [place] [phone] Marily Gordillo MD [address] [place] [phone] Chronic embolism and thrombosis of unspecified vein; [...] unspecified documented in this encounter Care Teams Photovoltaic Installer Relationship Specialty Start Date End Date Marita Wetzel DO [address] [place], [place] PCP - General 01/09/23 documented as of this encounter
--- OUTSIDE RECORDS SUMMARY | 2025-03-18 11:39 | XMS_ITS | Encounter Summary ---
Author Organization [facility] Address [address] [place] [address] Care Team Providers Care College Or University Department Head Name Role Phone Mary JaneMarita yousif Primary Care Provider +1- [phone] Encounter Details Date Type Department Care Team (Late st Contact Info) Description 03/05/[address] [facility] - Main Lab [address] [facility] [place] [address] Catalina Burr MD [address] [place] [address] Chronic embolism and thrombosis of unspecified vein; [...] - 20.0 ng/mL 03/10/2024 1:48 PM EST [facility] Comment: Additional Information: Toxic Level > [...] developed and the performance characteristics determined by [facility]. This confirmation testing has not been cleared or approved by the FDA. The laboratory is regulated under CLIA as qualified to perform high-complexity testing. This test is used for patient testing purposes. It should not be regarded as investigational or for research. Test performed at [facility], [address], [place], [place] [id number] Ashtyn Leigh MD, PhD - Lead Java [id number] Developer Blood Venous blood specimen / Unknown Venipuncture / Unknown 03/08/2024 6:29 AM EST 03/08/2024 7:46 AM EST us Catalina Burr MD LAB BLOOD ORDERABLES Final Resul t [facility] [address] [place] [address] * (ABNORMAL) Renal function panel (03/08/2024 6:29 AM EST) Sodium 139 133 - 145 mmol/L LAB CHEMISTRY METHOD 03/08/2024 8:58 AM EST [facility] Potassium 4.5 3.5 - 5.5 mmol/L LAB CHEMISTRY METHOD 03/08/2024 8:58 AM [facility] Chloride 108 96 - 110 mmol/L LAB CHEMISTRY METHOD 03/08/2024 8:58 AM [facility] CO2 20(L) 21 - 32 mmol/L LAB CHEMISTRY METHOD 03/08/2024 8:58 AM [facility] Anion Gap 11 3 - 11 LAB CHEMISTRY METHOD 03/08/2024 8:58 AM [facility] Glucose 93 70 - 100 mg/dL LAB CHEMISTRY METHOD 03/08/2024 8:58 AM [facility] BUN 35(H) 5 - 25 mg/dL LAB CHEMISTRY METHOD 03/08/2024 8:58 AM [facility] Creatinine 3.99(H) 0.50 - 1.10 mg/dL LAB CHEMISTRY METHOD 03/08/2024 8:58 AM [facility] eGFR 12(L) >=60 mL/min/1. 73m2 LAB CHEMISTRY METHOD 03/08/2024 8:58 AM [facility] Comment:Calculation based on the Chronic Kidney Disease Epidemiology Collaboration (CKD-EPI) equation refit without adjustment for race. BUN/Creatinine Ratio 8.8 LAB CHEMISTRY METHOD 03/08/2024 8:58 AM [facility] Albumin 2.3(L) 3.2 - 5.0 g/dL LAB CHEMISTRY METHOD 03/08/2024 8:58 AM [facility] Calcium 9.0 8.5 - 10.5 mg/dL LAB CHEMISTRY METHOD 03/08/2024 8:58 AM [facility] Phosphorus 3.2 2.5 - 4.5 mg/dL LAB CHEMISTRY METHOD 03/08/2024 8:58 AM [facility] Blood Venous blood specimen / Unknown Venipuncture / Unknown 03/08/2024 6:29 AM EST 03/08/2024 7:46 AM EST Catalina Burr MD LAB BLOOD ORDERABLES Final Resul t [facility] [address] [place] [address], * (ABNORMAL) Complete blood count (03/08/2024 6:29 AM EST) WBC 9.8 4.8 - 10.8 K/mcL LAB HEMETOLOGY METHOD 03/08/2024 8:10 AM EST [facility] RBC 2.90(L) 3.80 - 4.80 M/mcL LAB HEMETOLOGY METHOD 03/08/2024 8:10 AM EST [facility] Hemoglobin 7.9(L) 11.5 - 16.0 g/dL LAB HEMETOLOGY METHOD 03/08/2024 8:10 AM EST [facility] Hematocrit 28.5(L) 35.0 - 47.0 % LAB HEMETOLOGY METHOD 03/08/2024 8:10 AM EST [facility] MCV 99.3(H) 79.0 - 98.0 FL LAB HEMETOLOGY METHOD 03/08/2024 8:10 AM EST [facility] MCH 27.5 27.0 - 32.0 pcg LAB HEMETOLOGY METHOD 03/08/2024 8:10 AM [facility] MCHC 27.7(L) 32.0 - 37.0 g/dL LAB HEMETOLOGY METHOD 03/08/2024 8:10 AM [facility] RDW 17.2(H) 11.0 - 15.0 % LAB HEMETOLOGY METHOD 03/08/2024 8:10 AM [facility] Platelets 299 130 - 400 K/mcL LAB HEMETOLOGY METHOD 03/08/2024 8:10 AM [facility] MPV 11.5(H) 7.0 - 11.0 FL LAB HEMETOLOGY METHOD 03/08/2024 8:10 AM EST [facility] NRBC 0.0 <1.0 % LAB HEMETOLOGY METHOD 03/08/2024 8:10 AM EST [facility] NRBC Absolute 0.00 <0.10 K/mcL LAB HEMETOLOGY METHOD 03/08/2024 8:10 AM EST [facility] Blood Venous blood specimen / Unknown Venipuncture / Unknown 03/08/2024 6:29 AM EST 03/08/2024 7:46 AM EST us Catalina Burr MD LAB BLOOD ORDERABLES Final Resul t [facility] [address] [place] [address], [place] [phone] documented in this encounter Visit Diagnoses Diagnosis Chronic embolism and thrombosis of unspecified vein Acute kidney failure, unspecified (CMS/HCC V24) Acute kidney failure, unspecified Type 2 diabetes mellitus without complications (CMS/HCC V24, CMS/HCC V28) documented in this encounter Care Teams College Or University Department Head Relationship Specialty Start Date End Date Marita Wetzel DO [address] [place] [address] PCP - General 01/09/23 documented as of this encounter
--- OUTSIDE RECORDS SUMMARY | 2025-03-18 11:39 | XMS_ITS | Encounter Summary ---
Author Organization [facility] Address [address] [place] [address] Care Team Providers Care Engineering Design Manager Name Role Phone Marita Wetzel Primary Care Provider +1- [phone] Encounter Details Date Type Department Care Team (Late st Contact Info) Description 04/17/2024 Lab Requisition [facility] - Main Lab [address] [facility] [place] [address] Catalina Burr MD [address] [place] [address] End stage renal disease (CMS/HCC V24, CMS/HCC [...] the performance characteristics determined by [facility]. This confirmation testing has not been cleared or approved by the FDA. The laboratory is regulated under CLIA as qualified to perform high-complexity testing. This test is used for patient testing purposes. It should not be regarded as investigational or for research. Test performed at [facility], [address] , [place] [address] Ashtyn Leigh MD, PhD - Parking Enforcement Officer Blood Venous blood specimen / Unknown Venipuncture / Unknown 04/17/2024 5:33 AM EST 04/17/2024 9:33 AM EST us Catalina Burr MD LAB BLOOD ORDERABLES Final Resul t [facility] [address] [place] [address] * (ABNORMAL) Reticulocyte count (04/17/2024 5:33 AM EST) Retic Ct Abs 0.050 0.030 - 0.090 M/mcL LAB HEMETOLOGY METHOD 04/17/2024 10:42 AM EST [facility] Retic Ct Pct 1.8(H) 0.7 - 1.7 % LAB HEMETOLOGY METHOD 04/17/2024 10:42 AM EST [facility] Immature Retic Fract 24.7(H) [...] Final Resul t [facility] [address] [place] [address], [place] [phone] * (ABNORMAL) Comprehensive metabolic panel (04/17/2024 5:33 [...] Final Resul t [facility] [address] [place] [address], * (ABNORMAL) Complete blood count (04/17/2024 5:33 AM EST) [facility] WBC 9.3 4.8 - 10.8 K/mcL [...] LAB HEMETOLOGY METHOD 04/17/2024 10:42 AM EST [facility] NRBC Absolute 0.00 <0.10 K/mcL LAB HEMETOLOGY METHOD 04/17/2024 10:42 AM EST [facility] Blood Venous blood specimen / Unknown Venipuncture / Unknown 04/17/2024 5:33 AM EST 04/17/2024 9:33 AM EST us Catalina Burr MD LAB BLOOD ORDERABLES Final Resul t [facility] [address] [place] [address], documented in this encounter Visit Diagnoses Diagnosis End stage renal disease (CMS/HCC V24, CMS/HCC V28) End stage renal disease Anemia, unspecified documented in this encounter Care Teams Engineering Design Manager Relationship Specialty Start Date End Date Marita Wetzel DO [address] [place] [address] PCP - General 01/09/23 documented as of this encounter
--- OUTSIDE RECORDS SUMMARY | 2025-03-18 11:39 | XMS_ITS | Encounter Summary ---
Author Organization [facility] Address [address] [place] [address] Phone Care Team Providers Care Research Methods Instructor Name Role Phone Marita Wetzel DO Primary Care Provider Unava ilable Encounter Details Date Type Department Care Team (Late st Contact Info) Description 04/13/2024 Documentation Only [facility] [address] [address] [place], [place], [place] [address] [place] [phone] Social History Tobacco Use Types Packs/Day Years [...] [facility] [address] [place] [phone] 07/12/2025 1:00 PM EDT Scheduled Only [facility] [place] [address] [address] documented as of this encounter Visit Diagnoses Not on filedocumented in this encounter Care Teams Research Methods Instructor Relationship Specialty Start Date End Date Marita Wetzel DO [address] [place] [address] PCP - General Family Medicine 11/14/22 documented as of this encounter
--- OUTSIDE RECORDS SUMMARY | 2025-03-18 11:39 | XMS_ITS | Encounter Summary ---
Author Organization [facility] Address [address] [place] [address] Care Team Providers Care Crane Manager Name Role Phone Marita Wetzel Primary Care Provider +1- [phone] Encounter Details Date Type Department Care Team (Late st Contact Info) Description 04/30/2024 Lab Requisition [facility] - Main Lab [address] [place] [phone] Marily Gordillo MD [address] [place] [address] Chronic embolism and thrombosis of [...] LAB CHEMISTRY METHOD 05/03/2024 10:39 AM EST [facility] Potassium 5.1 3.5 - 5.5 [...] Resul t Performing Organization Address City/[facility]/ZIP Co de Phone Number [facility] [address] [place] [address], * Tacrolimus level (05/03/2024 6:09 AM EST) [...] Test performed at [facility], [address] , [place] [address] Ashtyn Leigh MD, PhD - Network Desktop Support Specialist Blood Venous blood specimen / Unknown Venipuncture / Unknown 05/03/2024 6:09 AM EST 05/03/2024 9:28 AM EST Marily Gordillo MD LAB BLOOD ORDERABLES Final Resul t [facility] [address] [place] [address] documented in this encounter Visit Diagnoses Diagnosis Chronic embolism and thrombosis of unspecified vein Acute kidney failure, unspecified (CMS/HCC V24) Acute kidney failure, unspecified documented in this encounter Care Teams Crane Manager Relationship Specialty Start Date End Date Marita Wetzel DO [address] [place] [address] PCP - General 01/09/23 documented as of this encounter
--- OUTSIDE RECORDS SUMMARY | 2025-03-18 11:39 | XMS_ITS | Encounter Summary ---
Author Organization [facility] Address [address] [place] [address] Care Team Providers Care Concrete Mixer Truck Driver Name Role Phone Marita Wetzel Primary Care Provider +1- [phone] Encounter Details Date Type Department Care Team (Late st Contact Info) Description 04/17/2024 Lab Requisition [facility] - Main Lab [address] [place] [phone] Marily Gordillo MD [address] [place] [address] Chronic embolism and thrombosis of [...] - 20.0 ng/mL 04/22/2024 11:22 AM EST [facility] [...] developed and the performance characteristics determined by [facility]. This confirmation testing has not been cleared or approved by the FDA. The laboratory is regulated under CLIA as qualified to perform high-complexity testing. This test is used for patient testing purposes. It should not be regarded as investigational or for research. Test performed at [facility], [address], [place] [address] Ashtyn Leigh MD, PhD - Data Manager Blood Venous blood specimen / Unknown Venipuncture / Unknown 04/19/2024 6:21 AM EST 04/19/2024 8:33 AM EST us Marily Gordillo MD LAB BLOOD ORDERABLES Final Resul t [facility] [address] [place] [address] * (ABNORMAL) Renal function panel (04/19/2024 6:21 AM EST) Pathologist [facility] Sodium 144 133 - 145 mmol/L LAB CHEMISTRY METHOD 04/19/2024 9:42 AM EST [facility] Potassium 3.3(L) 3.5 - 5.5 mmol/L LAB CHEMISTRY METHOD 04/19/2024 9:42 AM EST [facility] Chloride 114(H) 96 - 110 mmol/L LAB CHEMISTRY METHOD 04/19/2024 9:42 AM EST [facility] CO2 22 21 - [...] g/dL LAB CHEMISTRY METHOD 04/19/2024 9:42 AM [facility] Calcium 8.5 8.5 - 10.5 [...] Final Resul t [facility] [address] [place] [address], * (ABNORMAL) Complete blood count (04/19/2024 6:21 AM EST) [facility] WBC 12.0(H) 4.8 - 10.8 K/mcL [...] pcg LAB HEMETOLOGY METHOD 04/19/2024 9:26 AM [facility] MCHC 27.8(L) 32.0 - 37.0 [...] LAB HEMETOLOGY METHOD 04/19/2024 9:26 AM EST [facility] Blood Venous blood specimen / Unknown Venipuncture / Unknown 04/19/2024 6:21 AM EST 04/19/2024 8:33 AM EST us Marily Gordillo MD LAB BLOOD ORDERABLES Final Resul t [facility] [address] [place] [address], documented in this encounter Visit Diagnoses Diagnosis Chronic embolism and thrombosis of unspecified vein Acute kidney failure, unspecified (CMS/HCC V24) Acute kidney failure, unspecified documented in this encounter Care Teams Concrete Mixer Truck Driver Relationship Specialty Start Date End Date Marita Wetzel DO [address] [place] [address] PCP - General 01/09/23 documented as of this encounter
--- OUTSIDE RECORDS SUMMARY | 2025-03-18 11:39 | XMS_ITS | Encounter Summary ---
Author Organization [facility] [place], Address [address] [place] [address] Phone Care Team Providers Care Electric Container Tester Name Role Phone Marita Wetzel DO Primary Care Provider Unava ilable Encounter Details Date Type Department Care Team (Late st Contact Info) Description 12/09/2022 Documentation Only [facility] [place], [address] [place] [place] [phone] Candace Adam PA [address] [place] [phone] Social History Tobacco Use Types Packs/Day Years [...] Question Answer Date of Assessment Author BP 106/50 12/10/2022 12:08 PM EDT Candace Cotto PA Height 67 12/10/2022 12:08 PM EDT Candace Cotto PA Weight 2076.8 12/10/2022 12:08 PM EDT Candace Cotto PA * BMI (Calculated) Answer Date of Assessment Author 20.3 12/10/2022 12:08 PM EDT Candace Adam PA * BP Location Answer Date of Assessment Author Right upper arm 12/10/2022 12:08 PM EDT Candace Adam PA * Question Answer Date of Assessment Author BP 106/50 12/10/2022 12:08 PM EDT Candace Cotto PA Height 67 12/10/2022 12:08 PM EDT Candace Cotto PA Weight 2076.8 12/10/2022 12:08 PM EDT Candace Cotto PA * BMI (Calculated) Answer Date of Assessment Author 20.3 12/10/2022 12:08 PM EDT Candace Adam PA * BP Location Answer Date of Assessment Author Right upper arm 12/10/2022 12:08 PM EDT Candace Adam PA documented as of this encounter Plan of Treatment Upcoming Encounters Date Type Department Care Team (Late st Contact Info) Description 04/05/2025 9:30 AM EST Clinical Support [facility] Center [address] [place] [address] [place] [address] 07/12/2025 1:00 PM EDT Scheduled Only [facility] V[facility] Access [address] [place] [address] documented as of this encounter Visit Diagnoses Not on filedocumented in this encounter Care Teams Electric Container Tester Relationship Specialty Start Date End Date Marita Wetzel DO [address] [place] [address] PCP - General Family Medicine 11/14/22 documented as of this encounter
--- OUTSIDE RECORDS SUMMARY | 2025-03-18 11:39 | XMS_ITS | Encounter Summary ---
Author Organization [facility] Address [address] [place] [address] Phone Care Team Providers Care Night Order Selector Name Role Phone Marita Wetzel DO Primary Care Provider Unava ilable Encounter Details Date Type Department Care Team (Late st Contact Info) Description 09/26/2022 Documentation Only [facility] [address] [place] [phone] Candaec Adam PA [address] [place] [address] [place] [phone] Social History Tobacco Use Types Packs/Day Years [...] Support [facility] V[facility] Access [address] [place] [phone] 07/12/2025 1:00 PM EDT Scheduled Only [facility] Access [address] [place] [phone] documented as of this encounter Visit Diagnoses Not on filedocumented in this encounter Care Teams Night Order Selector Relationship Specialty Start Date End Date Marita Wetzel DO [address] [place] [address] PCP - General Family Medicine 11/14/22 documented as of this encounter
--- OUTSIDE RECORDS SUMMARY | 2025-03-18 11:39 | XMS_ITS | Encounter Summary ---
Author Organization [facility] Address [address] [place] [address] Care Team Providers Care Panel Cutter Name Role Phone Marita Wetzel DO Primary Care Provider +1- [phone] Encounter Details Date Type Department Care Team (Late st Contact Info) Description 04/28/2024 Lab Requisition [facility] - Main Lab [address] [facility] [phone] Marily Gordillo MD [address] [place] [address] Chronic kidney disease, unspecified; Anemia, [...] unspecified documented in this encounter Care Teams Panel Cutter Relationship Specialty Start Date End Date Marita Wetzel DO [address] [place] [address] PCP - General 01/09/23 documented as of this encounter
--- OUTSIDE RECORDS SUMMARY | 2025-03-18 11:39 | XMS_ITS | Encounter Summary ---
Author Organization [facility] Address [address] [place] [address] Phone Care Team Providers Care Simonizer Name Role Phone Marita Wetzel DO Primary Care Provider Unava ilable Encounter Details Date Type Department Care Team (Late st Contact Info) Description 07/04/2023 Documentation Only [facility] [address] [place] [phone] Pauline Aguayo [address] [place] [address] Social History Tobacco Use Types [...] [facility] [address] [place] [address] 07/12/2025 1:00 PM EDT Scheduled Only [facility] [address] [place] [phone] documented as of this encounter Visit Diagnoses Not on filedocumented in this encounter Care Teams Simonizer Relationship Specialty Start Date End Date Marita Wetzel DO [address] [place] [address] PCP - General Family Medicine 11/14/22 documented as of this encounter
--- OUTSIDE RECORDS SUMMARY | 2025-03-18 11:39 | XMS_ITS | Encounter Summary ---
Author Organization [facility] Address [address] [place] [address] Care Team Providers Care Medical Scientific Liaison Name Role Phone Marita Wetzel Primary Care Provider +1- [phone] Encounter Details Date Type Department Care Team (Late st Contact Info) Description 02/25/2024 Lab Requisition [facility] - Main Lab [address] [facility] [place] [address] Catalina Burr MD [address] [place] [address] Chronic embolism and thrombosis of unspecified vein; [...] Travel phlebotomy fee (02/25/2024 6:30 AM EST) [facility] TRAVEL PHLEBOTOMY FEE Completed 02/25/2024 11:01 AM EST [facility] Blood Venous blood specimen / Unknown Venipuncture / Unknown 02/25/2024 6:30 AM EST 02/25/2024 10:25 AM EST Catalina Burr MD LAB BLOOD ORDERABLES Final Resul t Performing Organization Address [facility] de Phone Number [facility]) [facility] [address] [place] [address], * (ABNORMAL) Tacrolimus level (02/25/2024 6:30 AM EST) Tacrolimus Level 3.8(L) 5.0 - 20.0 ng/mL 02/28/2024 12:37 PM EST [facility] [...] developed and the performance characteristics determined by [facility]. This confirmation testing has not been cleared or approved by the FDA. The laboratory is regulated under CLIA as qualified to perform high-complexity testing. This test is used for patient testing purposes. It should not be regarded as investigational or for research. Test performed at [facility], [address], [place], [place] [id number] Ashtyn Leigh MD, PhD - Net Repairer Blood Venous blood specimen / Unknown Venipuncture / Unknown 02/25/2024 6:30 AM EST 02/25/2024 10:25 AM EST Catalina Burr MD LAB BLOOD ORDERABLES Final Resul t Performing Organization Address City/[facility]/ZIP Co de Phone Number [facility] [address] [place], [place] [phone] documented in this encounter Visit Diagnoses Diagnosis Chronic embolism and thrombosis of unspecified vein Acute kidney failure, unspecified (CMS/[facility] V24) Acute kidney failure, unspecified documented in this encounter Care Teams Medical Scientific Liaison Relationship Specialty Start Date End Date Marita Wetzel DO [address] [place] [address] PCP - General 01/09/23 documented as of this encounter
--- OUTSIDE RECORDS SUMMARY | 2025-03-18 11:39 | XMS_ITS | Clinical Summary ---
Author Organization [address] Address [address] [place] [address] Phone Care Team Providers Care Cubing Machine Tender Name Role Phone Mary JanemarniechrisMarita Scottie MARROQUIN Primary Care Provider +1- [phone] Immunizations Immunization Administration Dates Next Due Moderna [...] RSV Immunization Adult Patients (1 - Risk 50-74 years 1-dose series) 2010 Zoster Vaccines (1 of 2) 11/14/2021 09/19/2021, 02/0 10/2021 HIV Screening 05/16/2023 Medicare Annual Wellness Visit 05/16/2023 Social Influencers of Health Screening 05/16/2023 Diabetes: Annual Urine Albumin-Creatinine Ratio (uACR) 03/01/2024 Depression Screening 04/21/2024 COVID-19 Vaccine (5 - Moderna risk season) 2025 02/01/2025, 02/01/2022, 06/22/2020, Additional history exists Diabetes: Blood Sugar Control Test (HGBA1C) 08/02/2025 02/01/2025, 12/07/2024, 04/20/2024, Additional history exists Diabetes: Annual GFR (Glomerular Filtration Rate) 03/07/2026 03/07/2025, 02/07/2025, 01/19/2025, Additional history exists Hypertension/CHF/CAD Annual BMP Blood Test 03/07/2026 03/07/2025, 02/07/2025, 01/19/2025, Additional history exists Cholesterol Screening (Lipid Panel) 10/05/2028 10/06/2023, 11/26/2021 DTaP,Tdap,and Td Vaccines (4 - Td or Tdap) 11/27/2034 11/27/2024, 01/18/2022, 01/23/2011 Varicella Vaccines Aged Out 09/19/2021, 05/28/2021 No longer eligible based on patient's age to complete this topic Hepatitis B Vaccines Completed 10/02/2021, 10/01/2021, 08/03/2021, Additional history exists Hepatitis C Screening Completed 04/20/2024 , 04/20/2024, 02/10/2024, Additional history exists Influenza Vaccine Completed 01/28/2025, [...] mmol/L LAB CHEMISTRY METHOD 05/10/2024 11:45 AM [facility] Potassium 3.8 3.5 - 5.5 mmol/L LAB CHEMISTRY METHOD 05/10/2024 11:45 AM [facility] Chloride 96 96 - 110 mmol/L LAB CHEMISTRY METHOD 05/10/2024 11:45 AM [facility] CO2 28 21 - 32 mmol/L LAB CHEMISTRY METHOD 05/10/2024 11:45 AM [facility] Anion Gap 11 3 - 11 LAB CHEMISTRY METHOD 05/10/2024 11:45 AM [facility] Glucose 215(H) 70 - 100 mg/dL LAB CHEMISTRY METHOD 05/10/2024 11:45 AM [facility] BUN 45(H) 5 - 25 mg/dL LAB CHEMISTRY METHOD 05/10/2024 11:45 AM [facility] Creatinine 3.47(H) 0.50 - 1.10 mg/dL LAB CHEMISTRY METHOD 05/10/2024 11:45 AM [facility] eGFR 14(L) >=60 mL/min/1. 73m2 LAB CHEMISTRY METHOD 05/10/2024 11:45 AM [facility] Comment:Calculation based on the Chronic Kidney Disease Epidemiology Collaboration (CKD-EPI) equation refit without adjustment for race. BUN/Creatinine Ratio 13.0 LAB CHEMISTRY METHOD 05/10/2024 11:45 AM [facility] Albumin 1.7(L) 3.2 - 5.0 g/dL LAB CHEMISTRY METHOD 05/10/2024 11:45 AM [facility] Calcium 8.4(L) 8.5 - 10.5 mg/dL LAB CHEMISTRY METHOD 05/10/2024 11:45 AM EST [facility] Phosphorus 2.1(L) 2.5 - 4.5 mg/dL LAB CHEMISTRY METHOD 05/10/2024 11:45 AM EST [facility] Blood Venous blood specimen / Unknown Venipuncture / Unknown 05/10/2024 5:50 AM EST 05/10/2024 9:58 AM EST us Marily Gordillo MD LAB BLOOD ORDERABLES Final Resul t [facility] [address] [place] [address], from Last 3 Months or Most Recently Relevant to Health Maintenance Insurance MEDICARE Care Teams Cubing Machine Tender Relationship Specialty Start Date End Date Marita Wetzel DO [address] [place] [address] PCP - General 01/09/23
--- OUTSIDE RECORDS SUMMARY | 2025-03-18 11:39 | XMS_ITS | Encounter Summary ---
Author Organization [facility] Address [address] [place] [address] Care Team Providers Care Bolt Loader Name Role Phone Marita Wetzel Primary Care Provider +1- [phone] Encounter Details Date Type Department Care Team (Late st Contact Info) Description 03/30/2024 Lab Requisition [facility] - Main Lab [address] [facility] [place] [address] Catalina Burr MD [address] [place] [address] Chronic embolism and thrombosis of unspecified vein; [...] LAB CHEMISTRY METHOD 03/31/2024 12:06 PM EST [facility] Blood Venous blood specimen / Unknown Venipuncture / Unknown 03/31/2024 9:23 AM EST 03/31/2024 11:25 AM EST Catalina Burr MD LAB BLOOD ORDERABLES Final Resul t Performing Organization Address [facility]/ZIP Co de Phone Number [facility] [address] [place] [address], [place] [phone] * (ABNORMAL) Ferritin (03/31/2024 9:23 AM EST) Ferritin 6,203(H) 8 - 252 ng/mL LAB CHEMISTRY METHOD 03/31/2024 12:10 PM EST [facility] Blood Venous blood specimen / Unknown Venipuncture / Unknown 03/31/2024 9:23 AM EST 03/31/2024 11:25 AM EST Catalina Burr MD LAB BLOOD ORDERABLES Final Resul t Performing Organization Address [facility]/ZIP Co de Phone Number [facility] [address] [place] [address], [place] [phone] documented in this encounter Visit Diagnoses Diagnosis Chronic embolism and thrombosis of unspecified vein Acute kidney failure, unspecified (CMS/HCC V24) Acute kidney failure, unspecified documented in this encounter Care Teams Bolt Loader Relationship Specialty Start Date End Date Marita Wetzel DO [address] [place] [address] PCP - General 01/09/23 documented as of this encounter
--- OUTSIDE RECORDS SUMMARY | 2025-03-18 11:39 | XMS_ITS | Encounter Summary ---
Author Organization [facility] Address [address] [place] [address] Phone Care Team Providers Care Dialysis Technician Name Role Phone Marita Wetzel DO Primary Care Provider Unava ilable Encounter Details Date Type Department Care Team (Late st Contact Info) Description 11/11/2022 Documentation Only [facility] [address] [place] [address] Pauline Aguayo [address] [place] [address] Social History Tobacco Use Types [...] [facility] Center [address] [place] [address] 07/12/2025 1:00 PM EDT Scheduled Only [facility] [address] [place] [address] documented as of this encounter Visit Diagnoses Not on filedocumented in this encounter Care Teams Dialysis Technician Relationship Specialty Start Date End Date Marita Wetzel DO [address] [place] [address] PCP - General Family Medicine 11/14/22 documented as of this encounter
--- OUTSIDE RECORDS SUMMARY | 2025-03-18 11:39 | XMS_ITS | Encounter Summary ---
Author Organization [facility] Address [address] [place] [address] Care Team Providers Care Regulatory Compliance Coordinator Name Role Phone Marita Wetzel DO Primary Care Provider +1- [phone] Encounter Details Date Type Department Care Team (Late st Contact Info) Description 03/15/2024 Lab Requisition [facility] - Main Lab 299 [facility] [place] [phone] Catalina Burr MD [address] [place] [address] Acute kidney failure, unspecified (CMS/HCC V24); Chronic [...] vein documented in this encounter Care Teams Regulatory Compliance Coordinator Relationship Specialty Start Date End Date Marita Wetzel DO [address] [place], [place] PCP - General 01/09/23 documented as of this encounter
--- OUTSIDE RECORDS SUMMARY | 2025-03-18 11:39 | XMS_ITS | Encounter Summary ---
Author Organization [facility] [place], Address [address] [place] [address] Phone Care Team Providers Care Heart Doctor Name Role Phone Marita Wetzel DO Primary Care Provider Unava ilable Reason for Visit * Reason Comments Med Refill Encounter Details Date Type Department Care Team (Late Contact Info) Description 01/04/2021 Refill [facility] [address] [place] [phone] Bernardo Doty MD [address] [facility] [place] [phone] Social History Tobacco Use Types Packs/Day Years [...] [facility] [address] [place] [phone] 07/12/2025 1:00 PM EDT Scheduled Only [facility] Center [address] [place] [address] documented as of this encounter Visit Diagnoses Not on filedocumented in this encounter Care Teams Heart Doctor Relationship Specialty Start Date End Date Marita Wetzel DO [address] [place] [address] PCP - General Family Medicine 11/14/22 documented as of this encounter
--- OUTSIDE RECORDS SUMMARY | 2025-03-18 11:40 | XMS_ITS | Encounter Summary ---
Author Organization [facility], Address [address] [facility] [place] [address] Phone Care Team Providers Care Cargo Service Supervisor Name Role Phone Marita Wetzel DO Primary Care Provider Unava ilable Reason for Visit * Reason Comments Med Refill Encounter Details Date Type Department Care Team (Late Contact Info) Description 06/18/2024 Refill [facility] [address] [place] [phone] Srinivas Agrawal MD [address] [place] [phone] Social History Tobacco Use Types Packs/Day Years [...] [facility] [address] [place] [phone] 07/12/2025 1:00 PM EDT Scheduled Only [facility] [address] [place] [phone] documented as of this encounter Procedures Procedure Name Priority Date/Time Associated Diagnosis Comments HD KINETICS Routine 06/18/2024 POST CHEMISTRY Routine 06/18/2024 IMMUNO CHEMISTRY Routine 06/18/2024 HEMATOLOGY Routine 06/18/2024 CHEMISTRY Routine 06/18/2024 CHEMISTRY Routine 06/18/2024 [facility] RESULTS Routine 06/18/2024 documented in this encounter Results * [facility] Results (06/18/2024) Pathologist [facility] eKt/V ([place]) 1.28 Knowledge Center WSTDKT/V 0.8 Knowledge Center spKt/V ([place]augird[place] II) 1.50 [facility] 06/18/2024 06/18/2024 [facility] Ordering Provider LAB BLOOD ORDERABLES Final Result [facility] Contact Performing lab Unknown, [place] * HD KINETICS (06/18/2024) Pathologist [facility] % Urea Reduction 70 65 - 80 % [facility] 06/18/2024 06/22/2024 9:5 5 AM EST Narrative Resulting Agency Comment Specimen source: Plasma us Srinivas Agrawal MD LAB BLOOD ORDERABLES Final Result [facility] See order comments or contact performing lab Unknown, [place] * POST CHEMISTRY (06/18/2024) Pathologist [facility] BUN Post Dialysis 13 6 - 19 mg/dL [facility] 06/18/2024 06/22/2024 9:5 5 AM EST Narrative [facility] - 06/22/2024 Unless otherwise specified, test(s) performed at: [facility], [address] [place] [address] METAL EXPEDITER: Dwayne Fuentes M.D. For any questions, please call customer service at FREQUENCY:MONTHLY Resulting Agency Comment Specimen source: Plasma Srinivas Agrawal MD LAB BLOOD ORDERABLES Final Result [facility] See order comments or contact performing lab Unknown, [place] * IMMUNO CHEMISTRY (06/18/2024) Pathologist [facility] Hep B Surface Ag Negative Negative [facility] 06/18/2024 06/19/2024 11: 21 AM EST Narrative Resulting Agency Comment Specimen source: Serum Srinivas Agrawal MD LAB BLOOD ORDERABLES Final Result Performing Organization Address City/[facility]/ZIP Co de Phone Number [facility] See order comments or contact performing lab Unknown, [place] * (ABNORMAL) [facility] (06/18/2024) Pathologist [facility] BUN 44(H) 6 - 19 mg/dL [facility] [...] 06/19/2024 Unless otherwise specified, test(s) performed at: [facility], [address] [place], [place] [id number] METAL EXPEDITER: Dwayne Fuentes M.D. For any questions, please call customer service at FREQUENCY:MONTHLY Resulting Agency Comment Specimen source: Serum Srinivas Agrawal MD LAB BLOOD ORDERABLES Edite d Result - Final Performing Organization Address [facility] Co de Phone Number [facility] See order comments or contact performing lab Unknown, [place] * (ABNORMAL) HEMATOLOGY (06/18/2024) Hemoglobin 7.9(L) 12.0 - 16.0 g/dL [facility] Hemoglobin x 3 23.7(L) 36.0 - 48.0 % [facility] 06/18/2024 06/19/2024 12: 24 PM EST Narrative [facility] - 06/19/2024 Unless otherwise specified, test(s) performed at: [facility], [address] [place] [id number] METAL EXPEDITER: Dwayne Fuentes M.D. For any questions, please call customer service at FREQUENCY:MONTHLY Resulting Agency Comment Specimen source: Blood Srinivas Agrawal MD LAB BLOOD ORDERABLES Final Result Performing Organization Address City/[facility]/ZIP Co de Phone Number [facility] See order comments or contact performing lab Unknown, [place] * (ABNORMAL) [facility] (06/18/2024) PTH 145(H) 16 - 80 pg/mL [facility] 06/18/2024 06/19/2024 11: 40 AM EST Narrative [facility] - 06/19/2024 Unless otherwise specified, test(s) performed at: [facility], [address] [place] [phone] METAL EXPEDITER: Dwayne Fuentes M.D. For any questions, please call customer service at FREQUENCY:MONTHLY Resulting Agency Comment Specimen source: Plasma us Srinivas Agrawal MD LAB BLOOD ORDERABLES Final Result [facility] See order comments or contact performing lab Unknown, [place] documented in this encounter Visit Diagnoses Not on filedocumented in this encounter Care Teams Cargo Service Supervisor Relationship Specialty Start Date End Date Marita Wetzel DO [address] [place] [address] PCP - General Family Medicine 11/14/22 documented as of this encounter
--- NOTE | 2025-03-18 11:53 | ED.GENADULT ---
HPI - General Adult General Chief complaint: Extremity Injury, Lower Stated complaint: hip pain, recent hip surgery History of Present Illness ED Provider: David Blas MD HPI narrative: Author / Clinician: David Blas MD (Emergency Medicine) Chief Complaint Left hip pain after fall from lift chair yesterday. History of Present Illness Patient is 64-year-old female named Alix for evaluation of worsening left hip pain after a fall yesterday. The patient states that while being transferred via his lift chair, he was accidentally dropped, landing directly on his buttocks from seat level height. He was subsequently assisted into the house and was able to sleep in his bed overnight. The patient also notes difficulty accessing the porch due to mobility limitations and lack of assistance, which may impact his ability to safely enter and exit his home. Today he reports: - Marked increase in baseline left hip pain and pain in the left leg compared to usual. - Greater stiffness of the left hip compared with usual. - Inability to lift the left leg (he notes he is generally unable to lift it on normal days, but today pain is worse). - No other areas of pain or obvious injury reported. History is notable for a prior left hip fracture with initial surgery approximately 8?10 months ago, followed by a revision surgery. Approximately 2? weeks ago he underwent screw fixation of the left hip. He denies additional trauma aside from yesterday?s fall. Review of Systems Musculoskeletal: Positive for increased left hip pain, stiffness, and limited mobility. Neurological: Endorses intact sensation in the left lower extremity; able to wiggle toes. All other systems not discussed. Physical Examination Vital Signs: Physical Exam: - Tenderness over the left hip region. - Limited range of motion of the left hip due to pain. - Distal neurovascular function of the left lower extremity intact (patient able to wiggle toes; sensation present to light touch). Emergency Department Course Bedside examination as above. Radiographic imaging of the left hip ordered (awaiting results). Assessment & Plan Diagnosis: Acute exacerbation of chronic left hip pain following low-height fall (status-post left hip fracture with recent hardware revision). Plan: - Left hip X-ray ordered to evaluate for new fracture or hardware complication. - Continue monitoring while in ED; further management pending imaging results. Disposition Patient remains in the Emergency Department pending imaging and further evaluation. Related Data Home Medications ?Medication ?Instructions ?Recorded ?Confirmed acetaminophen 325 mg tablet 650 mg PO Q6H PRN Fever 04/07/24 03/07/25 carvedilol 25 mg tablet 25 mg PO BID 04/07/24 03/07/25 omeprazole 20 mg capsule,delayed 20 mg PO DAILY@0630 03/07/25 03/07/25 release prednisone 5 mg tablet 5 mg PO DAILY 03/07/25 03/07/25 sevelamer carbonate 800 mg tablet 800 mg PO TID 03/07/25 03/07/25 Previous Rx's ?Medication ?Instructions ?Recorded ondansetron 4 mg disintegrating 4 mg PO Q8H PRN nausea and 01/19/25 tablet vomiting #4 tabs Allergies Allergy/AdvReac Type Severity Reaction Status Date / Time codeine (CODEINE) Allergy Intermediate Hives and Verified 03/18/25 11:23 pruritus oxycodone (OXYCODONE) Allergy Intermediate HIVES Verified 03/18/25 11:23 PMFSH Past Medical History Medical History Pneumonia, community acquired Hyperkalemia Acute hyperglycemia HTN (hypertension) Mood disorder 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 Mother CHF (congestive heart failure) Social History Social History Household Members: Spouse Housing: House Do you presently have visiting nurse or other home services: Yes Alcohol intake: never Comment: patient is bedbound at this time Patient Tobacco Use Status: Never used Tobacco Advance Directives Date on File: 04/07/24 service: No Physical Exam ED Exam Exam: EXAM: Gen: Alert, awake, well appearing, well hydrated. Appears in some pain Head: Atraumatic Eyes: Anicteric, Normal conjunctiva. ENT: Moist mucosa, no pallor. ? Neck: Supple. Skin: ?No observable rash or bruising on exposed or examined skin Respiratory: Breathing comfortably, No distress.Clear to auscultation bilaterally, symmetric chest expansion, No wheeze, rales, ronchi. Cardiovascular: Regular rate and rhythm. No murmurs or rub. Well perfused periphery, warm extremities. No edema. ? Abdominal: No focal tenderness. Soft, no objective distension. No palpable masses or obvious organomegaly. ?No guarding, no rebound tenderness or other peritoneal findings. MSK: No grossly visible deformity. Slightly shortened left lower extremity no rotation soft compartments neurovascularly. Hip tender with limited range of motion secondary to pain. Pelvis grossly stable with rocking. No bruising no midline back tenderness or step-off Vital signs: See flowsheet Vital Signs: Vital Signs - 24 hr 03/18/25 11:20 03/18/25 14:06 Temperature 97.7 F 98.2 F Pulse Rate 60 61 Respiratory Rate 16 16 Blood Pressure 147/48 H 158/78 H Pulse Oximetry 100 100 Oxygen Delivery Method Room Air Room Air BMI result Body Mass Index 23.1 Medications Administered Discontinued Medications Generic Name Dose Route Start Last Admin Trade Name Freq PRN Reason Stop Dose Admin Acetaminophen 975 mg 03/18/25 11:41 03/18/25 12:26 Acetaminophen 325 Mg Tablet PO 03/18/25 11:42 975 mg ONCE ONE Administration Hydromorphone HCl 1 mg 03/18/25 11:41 03/18/25 12:25 Hydromorphone Hcl 2 Mg Tablet PO 03/18/25 11:42 1 mg ONCE ONE Administration Medical Decision Making Medical Decision Making MDM Narrative: Medical Decision Making: [age] female with low mechanism fall onto the buttock yesterday. February 15 head screw revision of the left hip. She has limited range of motion it is difficult for me to tell whether this is new or old. The patient feels her mobility is around the same and she is comfortable and preferable to go home given that she has physical therapy visit her there. I strongly encouraged her to visit her orthopedic surgeon to re-evaluate this is there may need to be additional imaging done given the complexity of the surgical treatment and revision history. Neurovascularly intact left lower extremity no other injuries identified on history or exam. Discharge Preliminary Favored Differential Diagnosis: Malpositioned orthopedic hardware, pelvic or hip fracture. among additional considered etiologies Testing Interpreted Independently: ?See below for details Radiology or Lab testing Results Reviewed: ?See below for details Consults: ?See below for details Independent Historians/External Chart Reviews: ?See below for details Social Determinants of Health Impacting MDM/Planning: ?See below for details Lab Data 03/18/25 12:32 03/18/25 12:32 Labs: Lab Results 03/18/25 Range/Units 12:32 WBC 4.5 L (4.8-10.8) X10*3/uL RBC 5.03 (4.20-5.50) X10*6/uL Hgb 13.4 (12.0-16.0) g/dl Hct 45.5 (37.0-47.0) % MCV 90.5 (80.0-98.0) fL MCH 26.6 L (27.0-33.0) pg MCHC 29.5 L (31.0-35.0) g/dl RDW 17.1 H (11.0-16.0) % Plt Count 119 L (160-400) X10*3/uL MPV 9.7 (9.4-12.3) fL Immature Gran % (Auto) 0.2 (0.0-0.4) % Neut % (Auto) 79.2 H (45-73) % Lymph % (Auto) 11.4 L (20-40) % Elbert % (Auto) 8.1 (2-11) % Eos % (Auto) 0.7 (0-4) % Baso % (Auto) 0.4 (0-2) % Lymph # (Auto) 0.5 L (1.2-4.9) X10*3/uL Elbert # (Auto) 0.4 (0.1-1.2) X10*3/uL Eos # (Auto) 0.0 (0.0-0.4) X10*3/uL Baso # (Auto) 0.0 (0.0-0.2) X10*3/uL Abs Immat Gran (auto) 0.01 (0.00-0.03) X10*3/uL Absolute Neuts (auto) 3.5 (2.0-8.3) x10*3/uL Absolute Nucleated RBC 0.000 (0.0-0.012) X10*3/uL Nucleated RBC % (auto) 0.0 (0.0-0.2) /100WBC Sodium 138 (135-145) mmol/L Potassium 4.8 D (3.3-5.1) mmol/L Chloride 97 (96-108) mmol/L Carbon Dioxide 26 (22-29) mmol/L Anion Gap 20 (12-20) BUN 54 H (9-16) mg/dL Creatinine 6.45 H* (0.5-1.4) mg/dL Estim Creat Clear Calc 8.2 Estimated GFR 6 Random Glucose 166 H (60-115) mg/dL Calcium 9.2 (8.4-10.2) mg/dL Discharge Plan Discharge Clinical Impression: Hip pain, left Patient Disposition: Home, Self-Care Instructions: Hip Pain (ED) Additional Instructions: You had an x-ray of your head which showed no malpositioning of the hardware. You do have quite a bit of pain and should follow up with the orthopedic surgeon at [facility]. Call their office this afternoon to schedule follow up and discuss your symptoms you may need additional imaging or evaluation in the office to be sure there was no subtle malpositioning of the screw or other abnormalities that need to be reassessed Prescriptions: No Action ondansetron 4 mg tablet,disintegrating 4 mg PO Q8H PRN (Reason: nausea and vomiting) Qty: 4 0RF carvedilol 25 mg Tablet 25 mg PO BID Rx Instructions: must administer with a meal/food acetaminophen 325 mg Tablet 650 mg PO Q6H PRN (Reason: Fever) prednisone 5 mg tablet 5 mg PO DAILY omeprazole 20 mg capsule,delayed release(DR/EC) 20 mg PO DAILY@0630 sevelamer carbonate 800 mg tablet 800 mg PO TID Interventions: ED Discharge Assessment Last Done: 03/18/25 14:06 Discharge Date/Time: 03/18/25 15:03 Print Language: Chinese
[2025-03-18 12:36] LABS: MANUAL DIFF FLAG NO
[2025-03-18 12:37] LABS: Hematocrit 45.5 % (37.0-47.0); Hemoglobin 13.4 g/dl (12.0-16.0); Imm Gran Abs Auto 0.01 X10*3/uL (0.00-0.03); Imm Gran Pct Auto 0.2 % (0.0-0.4); Lymphocytes Absolute Auto 0.5 X10*3/uL (1.2-4.9); Mean Corpuscular HGB Conc 29.5 g/dl (31.0-35.0); Mean Corpuscular Hemoglobin 26.6 pg (27.0-33.0); Mean Corpuscular Volume 90.5 fL (80.0-98.0); NRBC Abs Auto 0.000 X10*3/uL (0.0-0.012); NRBC Pct Auto 0.0 /100WBC (0.0-0.2); Platelet Count 119 X10*3/uL (160-400); Red Blood Count 5.03 X10*6/uL (4.20-5.50); White Blood Count 4.5 X10*3/uL (4.8-10.8)
[2025-03-18 12:55] LABS: Anion Gap 20 (12-20); Blood Urea Nitrogen 54 mg/dL (9-16); Calcium 9.2 mg/dL (8.4-10.2); Carbon Dioxide 26 mmol/L (22-29); Chloride 97 mmol/L (96-108); Creatinine Clr Calc Pharmacy 8.2; Estimated Glomerular Filt Rate 6; Potassium 4.8 mmol/L (3.3-5.1); Sodium 138 mmol/L (135-145)
[2025-03-18 14:06] VITALS: BP 158/78; PULSE 61; RESP 16; TEMP 36.8; O2SAT 100
[2025-03-18 14:45] VITALS: BP 163/76; PULSE 61; RESP 16; O2SAT 100
== END 2025-03-18 15:03 | disposition home or self-care (01) ==
PROVIDERS: Emergency Provider Emergency Medicine; PCP Family Medicine
DX: M25.552 Pain in left hip (principal); Z79.899 Other long term (current) drug therapy
CPT/HCPCS: 36415; 73502; 80048; 85025; 99283; 99284

== ENCOUNTER → 2025-03-18 11:43 | Outpatient (BNV) | payer MEDICARE, OTHER, SELFPAY | PROVIDERS: Emergency Provider Emergency Medicine; PCP Family Medicine; Visit Provider Radiology Diagnostic Radiology | DX: S72.012A Unspecified intracapsular fracture of left femur, initial encounter for closed fracture (principal) | CPT/HCPCS: 73502 ==